=== PATIENT | female | born 1990 | race Caucasian/White ===

== ENCOUNTER 2020-01-07 13:54 | Emergency (ER) | payer SELFPAY ==
--- NOTE | 2020-01-07 14:14 | HMH.EDUTC ---
[facility] [place] Disposition Clinical Impression: Acute bronchitis Qualifiers: Bronchitis organism: unspecified organism Qualified Code(s): J20.9 - Acute bronchitis, unspecified Asthma Qualifiers: Asthma severity: unspecified severity Asthma persistence: unspecified Asthma complication type: unspecified Qualified Code(s): J45.909 - Unspecified asthma, uncomplicated Disposition: Home, Self-Care Condition on Discharge: Good Instructions: Asthma -- Adult, DI for Asthma -- Adult Additional Instructions: Drink plenty of fluids. Take tylenol or ibuprofen for pain or fever. Take the medications as directed. Follow up with your regular doctor. GO TO THE ER FOR ANY WORSENING SYMPTOMS Prescriptions: Albuterol Sulfate [Albuterol Sulfate Hfa] 2 puffs IH Q6HP PRN 30 Days #1 hfa.aer.ad PRN Reason: Shortness Of Breath Transmission Status: Received by [facility] predniSONE [Prednisone 20mg Tab] 20 mg PO BID 4 Days #8 tab Transmission Status: Received by [facility] Azithromycin [Z-Ronn 250mg Tab*] 250 mg PO UD DOSE PK #6 tab Transmission Status: Received by [facility] Referrals: Anuj Ennis MD [Primary Care Provider] - Forms: Work/School Release Time of Disposition: 14:34 Medical Decision Making - Medical Records Medical records reviewed: No: I reviewed the patient's medical records. - Ben Inquiry Pt receiving controlled substance: No Vital Signs: 01/07/20 14:15 01/07/20 14:30 Temperature 98.3 F 98.3 F Temperature Source Oral Pulse Rate 88 Pulse Rate [Right Brachial] 88 Respiratory Rate 20 20 Blood Pressure 128/72 Blood Pressure [Right Arm] 128/72 Blood Pressure Mean [Right Arm] 90 Blood Pressure Source [Right Arm] Automatic Cuff Blood Pressure Position [Right Arm] Sitting 02 Sat by Pulse Oximetry 100 Oxygen Delivery Method Room Air [facility] [place] HPI - General Stated complaint: Allergies Time Seen by Provider: 01/07/20 14:14 - History of Present Illness Provider Complaint: She c/o cough and chest congestion. She has asthma. She states that every year at this time she usually gets an episode of bronchitis. She denies any fever or chills. She denies any known exposure to COVID-19. She does not think that she has COVID-19, because her symptoms are exactly like she has every year at this time. - Related Data Home Medications Medication Instructions Recorded Confirmed Buprenorphine HCl/Naloxone HCl 1 tab SL DAILY 04/01/19 04/01/19 [Buprenorphin-Naloxon 8-2 mg Sl] Previous Rx's Medication Instructions Recorded Acyclovir [Acyclovir 800mg tab] 800 mg PO 5XDAY 7 Days #35 tab 04/01/19 Albuterol Sulfate [Albuterol 2 puffs IH Q6HP PRN 30 Days #1 01/07/20 Sulfate Hfa] hfa.aer.ad Azithromycin [Z-Ronn 250mg Tab*] 250 mg PO UD DOSE PK #6 tab 01/07/20 predniSONE [Prednisone 20mg 20 mg PO BID 4 Days #8 tab 01/07/20 Tab] Allergies Allergy/AdvReac Type Severity Reaction Status Date / Time amoxicillin [AMOXICILLIN] Allergy Unknown Verified 12/08/17 15:58 morphine [MORPHINE] Allergy Unknown Verified 12/08/17 15:58 Penicillins [PENICILLINS] Allergy Unknown Verified 12/08/17 15:58 [facility] History - Hepatitis A Screen Attestation statement:: This patient has been screened for Hepatitis A risk factors. I have reviewed the patient's past medical history: Yes Laterality Cases: Bilateral: Tonsillectomy - Social History Smoking Status: Current every day smoker Tobacco Type: cigarettes # Packs/Day (cigarettes): 1 Alcohol Intake: never Occupational Status: employed ROS Obtained: Yes All systems reviewed & no additional complaints - Constitutional Constitutional: Denies chills, Denies fever(s), Denies poor appetite, Denies malaise - Eyes Eyes: Denies eye discharge - ENT Ears, Nose, Mouth, and Throat: Denies dizziness, Denies otalgia, Denies sore throat - Cardiovascular Cardiovascular: Denies chest pain - Respiratory Respiratory: No c
[2020-01-07 14:15] VITALS: BP 128/72; PULSE 88; RESP 20; TEMP 36.8; O2SAT 100; BMI 25.7
[2020-01-07 14:30] VITALS: BP 128/72; PULSE 88; RESP 20; TEMP 36.8; O2SAT 100
== END 2020-01-07 14:32 | disposition home or self-care (01) ==
PROVIDERS: Emergency Provider Nurse Practitioner Family; PCP Internal Medicine
DX: J20.9 Acute bronchitis, unspecified (principal); J45.909 Unspecified asthma, uncomplicated; Z88.0 Allergy status to penicillin; Z88.5 Allergy status to narcotic agent; F17.210 Nicotine dependence, cigarettes, uncomplicated
CPT/HCPCS: 99201

== ENCOUNTER 2020-06-28 15:51 | Emergency (ER) | payer OTHER, SELFPAY ==
[2020-06-28 15:52] VITALS: BP 131/93; PULSE 93; RESP 16; TEMP 36.6; O2SAT 99; BMI 25.7
--- NOTE | 2020-06-28 16:41 | HMH.EDUTC ---
[facility] [place] Disposition Clinical Impression: Exposure to COVID-19 virus Disposition: Home, Self-Care Condition on Discharge: Good Instructions: Preventing the Spread of Coronavirus Discharge Instructions Additional Instructions: Drink plenty of fluids. Take tylenol or ibuprofen for pain or fever. Take the medications as directed. Follow up with your regular doctor. GO TO THE ER FOR ANY WORSENING SYMPTOMS Don't waste picker the prescriptions unless you start to have symptoms. Make sure you f/u or go to the er if you have shortness of breath. Prescriptions: Albuterol Sulfate [Albuterol Sulfate Hfa] 2 puffs IH Q6HP PRN 30 Days #1 hfa.aer.ad PRN Reason: Shortness Of Breath Transmission Status: Received by [facility] # Ondansetron [Zofran 4mg ODT] 4 mg PO Q8HP PRN #12 tab.rapdis PRN Reason: Nausea Transmission Status: Received by [facility] # Azithromycin [Z-Ronn 250mg Tab*] 250 mg PO UD DOSE PK #6 tab Transmission Status: Received by [facility] # Referrals: Viktor Hobson [Primary Care Provider] - Forms: Work/School Release Time of Disposition: 16:48 Medical Decision Making - Medical Records Medical records reviewed: No: I reviewed the patient's medical records. - Ben Inquiry Pt receiving controlled substance: No Vital Signs: 06/28/20 15:52 06/28/20 16:54 Temperature 97.9 F 97.9 F Temperature Source Oral Oral Pulse Rate 93 H Pulse Rate [Right] 93 H Respiratory Rate 16 16 Blood Pressure 131/93 H Blood Pressure [Right Arm] 131/93 H Blood Pressure Mean [Right Arm] 105 02 Sat by Pulse Oximetry 99 [facility] [place] HPI - General Stated complaint: COVID TEST No Symptoms Time Seen by Provider: 06/28/20 16:41 Mode of Arrival: Ambulatory Source of Information: Patient Limitations: No Limitations Description of Symptoms (Recalled from Triage Doc. by RN): pt requesting COVID test pt has no symptoms HEENT Symptoms (Recalled from RN notes): No Resp Symptoms (Recalled from RN notes): No Skin Symptoms (Recalled from RN notes): No MS Symptoms (Recalled from RN notes): No Functional Status (Recalled from RN notes): wnl - History of Present Illness Provider Complaint: She state that her brother has covid. She denies any symptoms. She does have a significant history of asthma. She is worried that she will develope covid and get very sick because of her asthma. - Related Data Home Medications Medication Instructions Recorded Confirmed Buprenorphine HCl/Naloxone HCl 1 tab SL DAILY 04/01/19 04/01/19 [Buprenorphin-Naloxon 8-2 mg Sl] Previous Rx's Medication Instructions Recorded Acyclovir [Acyclovir 800mg tab] 800 mg PO 5XDAY 7 Days #35 tab 04/01/19 Albuterol Sulfate [Albuterol 2 puffs IH Q6HP PRN 30 Days #1 01/07/20 Sulfate Hfa] hfa.aer.ad Azithromycin [Z-Ronn 250mg Tab*] 250 mg PO UD DOSE PK #6 tab 01/07/20 predniSONE [Prednisone 20mg 20 mg PO BID 4 Days #8 tab 01/07/20 Tab] Albuterol Sulfate [Albuterol 2 puffs IH Q6HP PRN 30 Days #1 06/28/20 Sulfate Hfa] hfa.aer.ad Azithromycin [Z-Ronn 250mg Tab*] 250 mg PO UD DOSE PK #6 tab 06/28/20 Ondansetron [Zofran 4mg ODT] 4 mg PO Q8HP PRN #12 tab.rapdis 06/28/20 Allergies Allergy/AdvReac Type Severity Reaction Status Date / Time amoxicillin [AMOXICILLIN] Allergy Unknown Verified 12/08/17 15:58 morphine [MORPHINE] Allergy Unknown Verified 12/08/17 15:58 Penicillins [PENICILLINS] Allergy Unknown Verified 12/08/17 15:58 - Worker's Comp Is this a Worker's Comp case?: No Is this an [place] Worker's Comp?: No Is this a [place] Worker's Comp?: No [facility] History - Hepatitis A Screen Drug use history?: No High risk sexual behaviors?: No History of sexually transmitted infection?: No Currently employed?: No Childcare worker?: No Do you have indoor plumbing?: Yes Do you have electricity?: Yes Attestation statement:: This patient has been screened for Hepatitis A risk factors.
[2020-06-28 16:54] VITALS: BP 131/93; PULSE 93; RESP 16; TEMP 36.6; O2SAT 99
== END 2020-06-28 16:54 | disposition home or self-care (01) ==
PROVIDERS: Emergency Provider Nurse Practitioner Family; PCP Internal Medicine
DX: Z20.822 Contact with and (suspected) exposure to COVID-19 (principal); J45.909 Unspecified asthma, uncomplicated; F17.210 Nicotine dependence, cigarettes, uncomplicated; Z79.899 Other long term (current) drug therapy; Z88.0 Allergy status to penicillin; Z88.5 Allergy status to narcotic agent
CPT/HCPCS: 99202; G0463; U0003

== ENCOUNTER 2021-02-27 11:03 | Emergency (ER) | payer OTHER, SELFPAY ==
[2021-02-27 12:06] VITALS: BP 133/82; PULSE 74; RESP 21; TEMP 37; O2SAT 100; BMI 25.7
[2021-02-27 12:10] VITALS: BP 133/82; PULSE 74; RESP 21; TEMP 37
--- NOTE | 2021-02-27 12:30 | HMH.EDUTC ---
[facility] [place] Disposition Clinical Impression: Viral syndrome, Strep throat exposure Disposition: Home, Self-Care Condition on Discharge: Good Instructions: Strep Throat, DI for Strep Throat, DI for COVID-19 (Suspected or Confirmed ), Preventing the Spread of Coronavirus Discharge Instructions Additional Instructions: Drink plenty of fluids. Take tylenol for pain or fever. Return if you begin to have difficulty breathing. Follow up with your regular doctor. GO TO THE ER FOR ANY WORSENING SYMPTOMS Quarantine until you know the results of your covid-19 test. If it is positive, the health department should call you and give you further instructions about your length of Quarantine and other things. Notify your school or workplace of your results and follow their instructions regarding return to work/school. Prescriptions: Brompheniramine/Pseudoephed/Dm [Bromfed Dm Cough Syrup] 5 ml PO Q6HP PRN #240 ml PRN Reason: Cough Transmission Status: Received by [facility] #[id number] Azithromycin [Z-Ronn 250mg Tab*] 250 mg PO UD DOSE PK #6 tab Transmission Status: Received by [facility] #[id number] Referrals: Provider,Referral, [Primary Care Provider] - Forms: Work/School Release Time of Disposition: 12:55 Medical Decision Making - Medical Records Medical records reviewed: No: I reviewed the patient's medical records. - Ben Inquiry Pt receiving controlled substance: No Vital Signs: 02/27/21 12:06 02/27/21 12:10 Temperature 98.6 F 98.6 F Temperature Source Oral Pulse Rate 74 Pulse Rate [Left] 74 Respiratory Rate 21 21 Blood Pressure 133/82 Blood Pressure [Right Arm] 133/82 Blood Pressure Mean [Right Arm] 99 02 Sat by Pulse Oximetry 100 - Lab Data Lab results reviewed: Yes: I reviewed the patient's lab results. [facility] [place] HPI - General Stated complaint: covid tested Time Seen by Provider: 02/27/21 12:30 Mode of Arrival: Ambulatory Source of Information: Patient Limitations: No Limitations Description of Symptoms (Recalled from Triage Doc. by RN): pt c/o cough and congestion. HEENT Symptoms (Recalled from RN notes): Yes (congestion) Resp Symptoms (Recalled from RN notes): Yes (cough) Skin Symptoms (Recalled from RN notes): No MS Symptoms (Recalled from RN notes): No Functional Status (Recalled from RN notes): na - History of Present Illness Provider Complaint: She states that for the past 2 days she has had fatigue, a dry cough, and she has felt bad. She has been exposed to covid-19 in her office. She denies fever/chills/body aches. She has not been vaccinated against covid-19. - Related Data Home Medications Medication Instructions Recorded Confirmed Buprenorphine HCl/Naloxone HCl 1 tab SL DAILY 04/01/19 04/01/19 [Buprenorphin-Naloxon 8-2 mg Sl] Previous Rx's Medication Instructions Recorded Acyclovir [Acyclovir 800mg tab] 800 mg PO 5XDAY 7 Days #35 tab 04/01/19 Albuterol Sulfate [Albuterol 2 puffs IH Q6HP PRN 30 Days #1 01/07/20 Sulfate Hfa] hfa.aer.ad Azithromycin [Z-Ronn 250mg Tab*] 250 mg PO UD DOSE PK #6 tab 01/07/20 predniSONE [Prednisone 20mg 20 mg PO BID 4 Days #8 tab 01/07/20 Tab] Albuterol Sulfate [Albuterol 2 puffs IH Q6HP PRN 30 Days #1 06/28/20 Sulfate Hfa] hfa.aer.ad Azithromycin [Z-Ronn 250mg Tab*] 250 mg PO UD DOSE PK #6 tab 06/28/20 Ondansetron [Zofran 4mg ODT] 4 mg PO Q8HP PRN #12 tab.rapdis 06/28/20 Azithromycin [Z-Ronn 250mg Tab*] 250 mg PO UD DOSE PK #6 tab 02/27/21 Brompheniramine/Pseudoephed/Dm 5 ml PO Q6HP PRN #240 ml 02/27/21 [Bromfed Dm Cough Syrup] Allergies Allergy/AdvReac Type Severity Reaction Status Date / Time amoxicillin [AMOXICILLIN] Allergy Unknown Verified 12/08/17 15:58 morphine [MORPHINE] Allergy Unknown Verified 12/08/17 15:58 Penicillins [PENICILLINS] Allergy Unknown Verified 12/08/17 15:58 - Worker's Comp Is this a Worker's Comp case?: No H History - Hepatitis A Screen Drug use hist
== END 2021-02-27 13:09 | disposition home or self-care (01) ==
PROVIDERS: Emergency Provider Nurse Practitioner Family
DX: Z20.822 Contact with and (suspected) exposure to COVID-19 (principal)
CPT/HCPCS: 99202; G0463; U0003

== ENCOUNTER → 2021-07-18 11:29 | Outpatient (CLI) | payer OTHER, SELFPAY | PROVIDERS: PCP Internal Medicine; Visit Provider Nurse Practitioner | DX: Z20.822 Contact with and (suspected) exposure to COVID-19 (principal) | CPT/HCPCS: C9803; U0003; U0005 ==

== ENCOUNTER → 2021-07-19 15:29 | Outpatient (CLI) | payer OTHER, SELFPAY | PROVIDERS: Visit Provider Nurse Practitioner | DX: Z20.822 Contact with and (suspected) exposure to COVID-19 (principal) | CPT/HCPCS: C9803; U0003; U0005 ==

== ENCOUNTER 2022-03-18 11:01 | Emergency (ER) | payer OTHER, SELFPAY ==
[2022-03-18 12:15] VITALS: BP 130/80; PULSE 73; RESP 18; TEMP 36.9; O2SAT 100; BMI 23.3
[2022-03-18 12:39] LABS: Apearance,Urine Clear (Clear); Bilirubin,Urine Negative (Negative); Blood, Urine Trace (Negative); Color,Urine Yellow (Yellow); Glucose,Urine (UA) Negative (Negative); Ketones,Urine Negative (Negative); PH,Urine 7.5 (5.0-8.5); Protein,Urine Negative (Negative); Specific Gravity, Urine 1.015 (1.005-1.030); UTC Leukocyte Esterase,Urine Negative (Negative); UTC Nitrate,Urine Negative (Negative); Urobilinogen,Urine 1 EU/dl (0.2)
--- NOTE | 2022-03-18 12:41 | EXP.UTC ---
Discharge Plan Disposition Patient Disposition: Home, Self-Care Condition: Good Referrals Follow up/Referrals: Provider,Referral, MD [Primary Care Provider] - See instructions Activity Restrictions/Add. Instructions Additional Instructions/Restrictions: Make sure that you are drinking plenty of fluids Follow up with OBGYN for further evaluation and testing for Ovarian cyst Return if needed Straight to ER if any life threatening symptoms Clinical Impressions Clinical Impression: Other urinary problems Discharge ED Provider: Marylu Kuo [facility] [place] General Stated complaint: pain when urinating Mode of Arrival: Ambulatory Source of Information: Patient Limitations: No Limitations Time Seen by Provider: 03/18/22 12:41 Description of Symptoms (Recalled from Triage Doc. by RN): PATIENT C/O BLADDER SPASMS THAT STARTED THIS MORNING HEENT Symptoms (Recalled from RN notes): No Resp Symptoms (Recalled from RN notes): No Skin Symptoms (Recalled from RN notes): No MS Symptoms (Recalled from RN notes): No Functional Status (Recalled from RN notes): WNL History of Present Illness Provider Complaint: Patient states that she felt like she was having bladder spasms earlier and pressure in her right lower pelvic area when she urinates that comes and goes like she has at times when she gets a UTI States that she also has history of ovarian cysts that sometimes feels like this Related Data Allergies Allergy/AdvReac Type Severity Reaction Status Date / Time amoxicillin [AMOXICILLIN] Allergy Unknown Verified 12/08/17 15:58 morphine [MORPHINE] Allergy Unknown Verified 12/08/17 15:58 Penicillins [PENICILLINS] Allergy Unknown Verified 12/08/17 15:58 Worker's Comp Is this a Worker's Comp case?: No [facility] 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 (Updated 03/18/22 @ 12:53 by Marylu Kuo APRN) Anxiety Asthma Kidney stone Kidney stone Seizure disorder Urinary tract infection Surgical History (Updated 03/18/22 @ 12:31 by Rona Terrazas RN) History of appendectomy History of tonsillectomy Social History (Updated 03/18/22 @ 12:31 by Rona Terrazas RN) Smoking Status: Current every day smoker tobacco type: cigarettes packs per day: 1 alcohol intake: never current occupational status: other Travel in the last 8 weeks: None ROS Obtained: Yes All systems reviewed & no additional complaints except as documented and Yes Systems reviewed as appropriate & no additional complaints except as documented Cardiovascular Cardiovascular: Reports system reviewed and no additional complaints, except as documented and Reports as per HPI Respiratory Respiratory: Reports system reviewed and no additional complaints, except as documented and Reports as per HPI Gastrointestinal Gastrointestingal: Reports system reviewed and no additional complaints, except as documented and as per HPI; Denies abdominal pain Genitourinary Female Genitourinary: Reports system reviewed and no additional complaints, except as documented, Reports as per HPI, Reports urinary frequency and Reports other (pressure like feeling on and off right lower pelvic area) Physical Exam General General appearance: alert and in no apparent distress Respiratory Respiratory exam: Present normal lung sounds bilaterally; Absent respiratory distress Cardiovascular Cardiovascular exam: Present regular rate and normal heart sounds; Absent normal rhythm or bradycardia Abdominal Exam Abdominal exam: Present soft and normal bowel sounds; Absent distention or tenderness Neurological Exam Neurological exam: Present alert Medical Decision Making Ben Inquiry Pt receiving controlled substance: No Ben was queried for this patient: No Vital Signs: 03/18/22 12:15 Temperature 98.4 F Temperature Source Oral Pulse Rate [Right Brachial] 73 Respiratory Rate 18 Blood Pressure [Right Arm] 130/80 Blood Pressure Mean [Right Arm] 96 Blood Pressure Source [Right Arm] Automatic Cuff Blood Pr
[2022-03-18 12:42] LABS: UTC Pregnancy Test, Urine Negative (Negative)
[2022-03-18 12:52] VITALS: BP 130/80; PULSE 73; RESP 18; TEMP 36.9; O2SAT 100
== END 2022-03-18 12:55 | disposition home or self-care (01) ==
PROVIDERS: Emergency Provider Nurse Practitioner
DX: N32.89 Other specified disorders of bladder (principal); R30.0 Dysuria; N20.0 Calculus of kidney; G40.909 Epilepsy, unspecified, not intractable, without status epilepticus; J45.909 Unspecified asthma, uncomplicated; F41.9 Anxiety disorder, unspecified; F17.210 Nicotine dependence, cigarettes, uncomplicated; Z88.1 Allergy status to other antibiotic agents; Z88.3 Allergy status to other anti-infective agents; Z88.5 Allergy status to narcotic agent
CPT/HCPCS: 81003; 81025; 99213; G0463

== ENCOUNTER 2022-08-01 13:26 | Emergency (ER) | payer OTHER, SELFPAY ==
[2022-08-01 13:40] VITALS: BP 114/74; PULSE 78; RESP 18; TEMP 36.8; O2SAT 98; BMI 23.3
--- NOTE | 2022-08-01 14:06 | EXP.UTC ---
Discharge Plan Disposition Patient Disposition: Home, Self-Care Condition: Good Prescriptions Prescriptions: New azithromycin [Zithromax Z-Ronn] 250 mg tablet See Rx Instructions .ROUTE .COMPLEX 5 Days Qty: 6 0RF Rx Instructions: For 250 mg dose pack: take 500 mg today (day 1), then 250 mg for 4 days (days 2-5) methylprednisolone [Medrol (Ronn)] 4 mg tablets,dose pack See Rx Instructions .Route .COMPLEX 6 Days Qty: 21 0RF Rx Instructions: taper pack; guaifenesin [Mucinex] 600 mg tablet extended release 12hr 600 mg PO BID PRN (Reason: cough) Qty: 20 0RF Referrals Follow up/Referrals: Tracy Hobson MD [Primary Care Provider] - See instructions Activity Restrictions/Add. Instructions Additional Instructions/Restrictions: Start antibiotic today. Be sure to complete entire prescription even if feeling better Monitor temp. Tylenol every 4 hours as needed and / or ibuprofen every 6 hours as needed ( As long as your primary care physician has told you that it ok to take both. For fever/aches/pains ER if no less than 101 despite Tylenol or Motrin Humidifier/vaporizer or hot steamy shower Mucinex during the day for your cough and cough suppressant only at night. Be sure to drink lots of water. Insurance may not cover a prescriptions for mucinex. Might be cheaper to get 400mg tablets and take 2 tablet in the morning, mid-day and evening with lots of water. *Start steroid today. Helps with inflammation therefore, cough and wheezing. Follow directions on the package. Reviewed side effects. Patient reports taking them before. Follow up IMMEDIATELY for new or worsening of symptoms OR no noticeable improvement over the next 48-72 hours. 911 immediately for any life threatening symptoms such as chest pain or difficulty breathing Clinical Impressions Clinical Impression: Acute bronchitis Stand Alone Forms Stand Alone Forms: Work/School Release Instructions Patient Instructions: Cough, Acute Bronchitis Discharge ED Provider: Marylu Kuo [facility] [place] HPI General Stated complaint: Chest congestion SOA bodyaches fever Time Seen by Provider: 08/01/22 14:06 History of Present Illness Provider Complaint: Patient states that she had flu a couple weeks ago and for the last week she has been having sinus congestion, chest congestion and cough and feeling like it is moving into her chest States feels like it did before when she had bronchitis Related Data Previous Rx's Medication Instructions Recorded azithromycin 250 mg tablet See Rx Instructions PO .COMPLEX 5 08/01/22 (Zithromax Z-Ronn) days #6 tabs guaifenesin 600 mg tablet, 600 mg PO BID PRN cough #20 tabs 08/01/22 extended release 12 hr (Mucinex) methylprednisolone 4 mg tablets in See Rx Instructions .Route 08/01/22 a dose pack (Medrol (Ronn)) .COMPLEX 6 days #21 tabs Allergies Allergy/AdvReac Type Severity Reaction Status Date / Time amoxicillin [AMOXICILLIN] Allergy Unknown Verified 12/08/17 15:58 morphine [MORPHINE] Allergy Unknown Verified 12/08/17 15:58 Penicillins [PENICILLINS] Allergy Unknown Verified 12/08/17 15:58 [facility] Disclaimer: The information contained in this section may have been updated after the patient was seen, as this information can be updated by other users. 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 (Updated 08/01/22 @ 14:12 by Marylu Kuo APRN) Anxiety Asthma Kidney stone Kidney stone Seizure disorder Urinary tract infection Surgical History (Updated 03/18/22 @ 12:31 by Rona Terrazas RN) History of appendectomy History of tonsillectomy Social History (Updated 03/18/22 @ 12:31 by Rona Terrazas RN) Smoking Status: Current every day smoker tobacco type: cigarettes packs per day: 1 alcohol intake: never current occupational status: other Travel in the last 8 weeks: None ROS Obtained: Yes All systems reviewed & no additional
[2022-08-01 14:15] VITALS: BP 114/74; PULSE 78; RESP 18; TEMP 36.8; O2SAT 98
== END 2022-08-01 14:19 | disposition home or self-care (01) ==
PROVIDERS: Emergency Provider Nurse Practitioner; PCP Family Medicine
DX: J20.9 Acute bronchitis, unspecified (principal)
CPT/HCPCS: 99212; 99213; G0463

== ENCOUNTER 2023-11-12 08:18 | Emergency (ER) | payer OTHER, SELFPAY ==
[2023-11-12 08:30] VITALS: BP 116/67; PULSE 102; RESP 19; TEMP 36.6; O2SAT 100; BMI 23.5
[2023-11-12 08:53] LABS: UTC Influenza A Antigen Negative (Negative); UTC Influenza B Antigen Negative (Negative); UTC Strep Screen (Rapid) Negative (Negative)
--- NOTE | 2023-11-12 09:10 | ED_ITS ---
Discharge Plan Disposition Patient Disposition: Home, Self-Care Condition: Good Prescriptions Prescriptions: No Action gabapentin 800 mg tablet 800 mg PO TID furosemide 20 mg tablet See Rx Instructions .ROUTE .COMPLEX Rx Instructions: see rx instructions albuterol sulfate [Ventolin HFA] 90 mcg/actuation HFA aerosol inhaler See Rx Instructions .ROUTE .COMPLEX Patient Comments: INHALE 2 PUFFS BY MOUTH EVERY 4 HOURS Rx Instructions: INHALE 2 PUFFS BY MOUTH EVERY 4 HOURS spironolactone 50 mg tablet See Rx Instructions .ROUTE .COMPLEX Rx Instructions: see rx instructions Referrals Follow up/Referrals: Yonatan Graves [Primary Care Provider] - See instructions Activity Restrictions/Add. Instructions Additional Instructions/Restrictions: Drink plenty of fluids. Follow up with your regular doctor. GO TO THE ER FOR ANY WORSENING SYMPTOMS Clinical Impressions Clinical Impression: Viral syndrome Instructions Patient Instructions: DI for Viral Syndrome Discharge ED Provider: Morgan Valdivia [facility] General Stated complaint: cough, congestion, headache, sore throat Mode of Arrival: Ambulatory Source of Information: Patient Limitations: No Limitations Time Seen by Provider: 11/12/23 09:10 Description of Symptoms (Recalled from Triage Doc. by RN): Pt's symptoms are cough, congestion, SPANN, fatgiue, sore throat, and nausea. She was exposed to flu by family. HEENT Symptoms (Recalled from RN notes): Yes Resp Symptoms (Recalled from RN notes): No Skin Symptoms (Recalled from RN notes): No MS Symptoms (Recalled from RN notes): No Functional Status (Recalled from RN notes): n/a Related Data Home Medications Medication Instructions Recorded Confirmed albuterol sulfate 90 mcg/actuation See Rx Instructions .Route .COMPLEX 11/12/23 11/12/23 aerosol inhaler (Ventolin HFA) furosemide 20 mg tablet See Rx Instructions .Route .COMPLEX 11/12/23 11/12/23 gabapentin 800 mg tablet 800 mg PO TID 11/12/23 11/12/23 spironolactone 50 mg tablet See Rx Instructions .Route .COMPLEX 11/12/23 11/12/23 Allergies Allergy/AdvReac Type Severity Reaction Status Date / Time amoxicillin [AMOXICILLIN] Allergy Unknown Verified 11/12/23 08:38 morphine [MORPHINE] Allergy Unknown Verified 11/12/23 08:38 Penicillins [PENICILLINS] Allergy Unknown Verified 11/12/23 08:38 Worker's Comp Is this a Worker's Comp case?: No [facility] Disclaimer: The information contained in this section may have been updated after the patient was seen, as this information can be updated by other users. 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 (Updated 11/12/23 @ 09:17 by Morgan Valdivia APRN) Kidney stone Anxiety Seizure disorder Urinary tract infection Kidney stone Asthma Surgical History History of tonsillectomy History of appendectomy Social History Smoking Status: Current every day smoker tobacco type: cigarettes packs per day: 1 alcohol intake: never current occupational status: other Travel in the last 8 weeks: None ROS Obtained: Yes All systems reviewed & no additional complaints except as documented Constitutional Constitutional: Reports chills and Reports fever(s) Eyes Eyes: Denies eye discharge ENT Ears, Nose, Mouth, and Throat: Reports as per HPI Cardiovascular Cardiovascular: Denies chest pain Respiratory Respiratory: Denies chest congestion and Reports cough Gastrointestinal Gastrointestingal: Reports nausea; Denies abdominal pain, constipation, cramping, diarrhea or vomiting Musculoskeletal Musculoskeletal: Denies arthralgias Integumentary/Breasts Skin/Breast: Denies rash Neurologic Neurologic: Denies paresthesias Physical Exam General General appearance: alert and in no apparent distress Head Head exam: atraumatic, normocephalic and normal inspection Eye Eye exam: Present normal appearance, PERRL and EOMI ENT ENT exam: Present normal exam, normal oropharynx, mucous membranes moist, TM's normal bilaterally and normal external ear exam Neck Neck exam: Present normal inspection, full ROM and trachea midline; Absent meningismus or lymphadenopathy Chest Chest inspection: Present normal inspection and symmetric chest wall rise; Absent tenderness Respiratory Respiratory exam: Present normal lung sounds bilaterally; Absent respiratory distress Cardiovascular Cardiovascular exam: Present regular rate and normal rhythm; Absent JVD Abdominal Exam Abdominal exam: Present soft and normal bowel sounds; Absent distention, tenderness or guarding Extremities Exam Extremities exam: Present normal inspection, full ROM and normal capillary refill; Absent calf tenderness Back Exam Back exam: Present normal inspection; Absent tenderness Neurological Exam Neurological exam: Present alert and oriented X3 Psychiatric Psychiatric exam: Present normal affect and normal mood Skin Skin exam: Present warm, dry, intact and normal color Lymphatic Lymphatic Findings: no adenopathy Medical Decision Making Medical Records Medical records reviewed: No I reviewed the patient's medical records. Ben Inquiry Pt receiving controlled substance: No Vital Signs: 11/12/23 08:30 Temperature 97.9 F Temperature Source Oral Pulse Rate [Right Radial] 102 H Respiratory Rate 19 Blood Pressure [Right Arm] 116/67 Blood Pressure Mean [Right Arm] 83 Blood Pressure Source [Right Arm] Automatic Cuff Blood Pressure Position [Right Arm] Sitting 02 Sat by Pulse Oximetry 100 Oxygen Delivery Method Room Air Lab Data Lab results reviewed: Yes I reviewed the patient's lab results. Lab Results 11/12/23 08:25: Influenza Type A Ag Negative, Influenza Type B Ag Negative, Strep Scn Rapid Clinic Negative Orders (Tests/Meds): ORDERS Category Date Time Status Strep Screen Confirmation Stat Micro 11/12/23 08:25 Received
--- NOTE | 2023-11-12 09:20 | PC.NURSE ---
Sent full panel up to lab via tube system
[2023-11-12 09:21] VITALS: BP 116/67; PULSE 102; RESP 18; TEMP 36.6; O2SAT 100
[2023-11-12 09:23] LABS: Adenovirus,PCR Not Detected (NotDetected); Bordetella Pertussis Not Detected (NotDetected); Chlamydophila Pneumoniae, PCR Not Detected (NotDetected); Coronavirus 19, PCR Not Detected (NotDetected); Coronavirus 229E Not Detected (NotDetected); Coronavirus NL63 Not Detected (NotDetected); Coronavirus OC43 Not Detected (NotDetected); Coronovirus HKU1,PCR Not Detected (NotDetected); Human Metapneumovirus Not Detected (NotDetected); Influenza A, PCR Not Detected (NotDetected); Influenza AH1, 2009 Not Detected (NotDetected); Influenza AH1, PCR Not Detected (NotDetected); Influenza AH3,PCR Not Detected (NotDetected); Influenza B, PCR Not Detected (NotDetected); Mycoplasma Pneumoniae, PCR Not Detected (NotDetected); Parainfluenza 1, PCR Not Detected (NotDetected); Parainfluenza 2, PCR Not Detected (NotDetected); Parainfluenza 3, PCR Not Detected (NotDetected); Parainfluenza 4, PCR Not Detected (NotDetected); Respiratory Syncytial Virus Not Detected (NotDetected); Rhinovirus/Enterovirus Not Detected (NotDetected)
== END 2023-11-12 09:21 | disposition home or self-care (01) ==
PROVIDERS: Emergency Provider Nurse Practitioner Family; PCP Internal Medicine
DX: R51.9 Headache, unspecified (principal); J02.9 Acute pharyngitis, unspecified; B34.9 Viral infection, unspecified; R09.81 Nasal congestion; R53.83 Other fatigue; R11.0 Nausea; G40.909 Epilepsy, unspecified, not intractable, without status epilepticus; J45.909 Unspecified asthma, uncomplicated; F41.9 Anxiety disorder, unspecified; F17.210 Nicotine dependence, cigarettes, uncomplicated
CPT/HCPCS: 87581; 87632; 87635; 87798; 87804; 87880; 99212; 99213; G0463

== ENCOUNTER 2023-11-20 15:20 | Emergency (ER) | payer OTHER, SELFPAY ==
[2023-11-20 15:20] VITALS: BP 106/62; PULSE 88; RESP 20; TEMP 36.9; O2SAT 100; BMI 23.1
--- NOTE | 2023-11-20 16:00 | EXP.UTC ---
Discharge Plan Disposition Patient Disposition: Home, Self-Care Condition: Good Prescriptions Prescriptions: No Action gabapentin 800 mg tablet 800 mg PO TID furosemide 20 mg tablet See Rx Instructions .ROUTE .COMPLEX Rx Instructions: see rx instructions albuterol sulfate [Ventolin HFA] 90 mcg/actuation HFA aerosol inhaler See Rx Instructions .ROUTE .COMPLEX Patient Comments: INHALE 2 PUFFS BY MOUTH EVERY 4 HOURS Rx Instructions: INHALE 2 PUFFS BY MOUTH EVERY 4 HOURS spironolactone 50 mg tablet See Rx Instructions .ROUTE .COMPLEX Rx Instructions: see rx instructions Referrals Follow up/Referrals: Yonatan Graves [Primary Care Provider] - See instructions Activity Restrictions/Add. Instructions Additional Instructions/Restrictions: Make sure to follow up with your Family Doctor or go straight to [place] if you continue to have pain and discomfort Return if needed Straight to ER if any life threatening symptoms Clinical Impressions Clinical Impression: Low back pain Qualifiers: Chronicity: unspecified Back pain laterality: right Sciatica presence: unspecified whether sciatica present Qualified Code(s): M54.50 - Low back pain, unspecified Instructions Patient Instructions: Low Back Pain, DI for Low Back Pain Discharge ED Provider: Marylu Kuo [facility] General Stated complaint: Poss UTI Time Seen by Provider: 11/20/23 16:00 History of Present Illness Provider Complaint: Patient states that she has hx of liver failure in which she sees a specialist in [place] States that she has been having achy like pain in her right side/back area and she was worried that she may have a kidney infection and due to her liver issues she tries to stay on top of possible infection so she came in to get checked to make sure she didnt have a UTI Related Data Home Medications Medication Instructions Recorded Confirmed albuterol sulfate 90 mcg/actuation See Rx Instructions .Route .COMPLEX 11/12/23 11/12/23 aerosol inhaler (Ventolin HFA) furosemide 20 mg tablet See Rx Instructions .Route .COMPLEX 11/12/23 11/12/23 gabapentin 800 mg tablet 800 mg PO TID 11/12/23 11/12/23 spironolactone 50 mg tablet See Rx Instructions .Route .COMPLEX 11/12/23 11/12/23 Allergies Allergy/AdvReac Type Severity Reaction Status Date / Time amoxicillin [AMOXICILLIN] Allergy Unknown Verified 11/12/23 08:38 morphine [MORPHINE] Allergy Unknown Verified 11/12/23 08:38 Penicillins [PENICILLINS] Allergy Unknown Verified 11/12/23 08:38 [facility] Disclaimer: The information contained in this section may have been updated after the patient was seen, as this information can be updated by other users. 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 (Updated 11/20/23 @ 16:09 by Marylu Kuo APRN) Kidney stone Anxiety Seizure disorder Urinary tract infection Kidney stone Asthma Surgical History History of tonsillectomy History of appendectomy Social History Smoking Status: Current every day smoker tobacco type: cigarettes packs per day: 1 alcohol intake: never current occupational status: other Travel in the last 8 weeks: None ROS Obtained: Yes All systems reviewed & no additional complaints except as documented and Yes Systems reviewed as appropriate & no additional complaints except as documented Constitutional Constitutional: Reports system reviewed and no additional complaints, except as documented, Reports as per HPI, Denies body ache, Denies chills and Denies fever(s) Cardiovascular Cardiovascular: Reports system reviewed and no additional complaints, except as documented and Reports as per HPI Respiratory Respiratory: Reports system reviewed and no additional complaints, except as documented and Reports as per HPI Gastrointestinal Gastrointestingal: Reports system reviewed and no additional complaints, except as documented and as per HPI Genitourinary Female Genitourinary: Reports system reviewed and no additional complaints, except as documented, Reports as per HPI, Denies dysuria, Reports flank pain (right), Denies genital pruritis, Denies pelvic pain, Denies urinary frequency, Denies urinary hesitancy, Denies urinary urgency, Denies vaginal odor and Denies vaginal pruritus Musculoskeletal Musculoskeletal: Reports system reviewed and no additional complaints, except as documented, Reports as per HPI and Reports back pain (right low back aches) Physical Exam General General appearance: alert and in no apparent distress ENT ENT exam: Present mucous membranes moist Respiratory Respiratory exam: Present normal lung sounds bilaterally; Absent respiratory distress or wheezes Cardiovascular Cardiovascular exam: Present regular rate, normal rhythm and normal heart sounds Back Exam Back exam: Present tenderness; Absent CVA tenderness (R) or CVA tenderness (L) Back 1 view image: 1. reports achy like feeling denies radiation Neurological Exam Neurological exam: Present alert, oriented X3 and normal gait Medical Decision Making Ben Inquiry Pt receiving controlled substance: No Ben was queried for this patient: No Lab Data Lab results reviewed: Yes I reviewed the patient's lab results. Medical Decision Narrative: Discussed with patient about transfer to the ED for further work up and evalution and she declined Discussed with patient about going to the ED in [place] where her [place] physician is and where she was informed to go if she has any pain/issues and she declined at this time states if pain gets worse she will go to [place] patient aware of risks even and still declined
[2023-11-20 16:03] LABS: Apearance,Urine Clear (Clear); Bilirubin,Urine Negative (Negative); Blood, Urine Trace (Negative); Color,Urine Yellow (Yellow); Glucose,Urine (UA) Negative (Negative); Ketones,Urine Negative (Negative); Protein,Urine Negative (Negative); UTC Leukocyte Esterase,Urine Negative (Negative); UTC Nitrate,Urine Negative (Negative); Urobilinogen,Urine 2 EU/dl (0.2)
[2023-11-20 16:10] VITALS: BP 106/62; PULSE 88; RESP 20; TEMP 36.9; O2SAT 100
== END 2023-11-20 16:13 | disposition home or self-care (01) ==
PROVIDERS: Emergency Provider Nurse Practitioner; PCP Internal Medicine
DX: M54.50 Low back pain, unspecified (principal)
CPT/HCPCS: 81003; 87086; 99212; 99213; G0463

== ENCOUNTER 2024-01-31 13:56 | Emergency (ER) | payer OTHER, SELFPAY ==
[2024-01-31] VITALS (8 sets, daily range): BP systolic 99–116; BP diastolic 55–75; PULSE 84–93; RESP 20; TEMP 36.8–37; O2SAT 99–100; BMI 22.6; BMI 22.4
--- NOTE | 2024-01-31 14:38 | ED_ITS ---
Discharge Plan Disposition Patient Disposition: Still a Patient Condition: Good Prescriptions Prescriptions: No Action gabapentin 800 mg tablet 800 mg PO TID furosemide 20 mg tablet See Rx Instructions .ROUTE .COMPLEX Rx Instructions: see rx instructions albuterol sulfate [Ventolin HFA] 90 mcg/actuation HFA aerosol inhaler See Rx Instructions .ROUTE .COMPLEX Patient Comments: INHALE 2 PUFFS BY MOUTH EVERY 4 HOURS Rx Instructions: INHALE 2 PUFFS BY MOUTH EVERY 4 HOURS spironolactone 50 mg tablet See Rx Instructions .ROUTE .COMPLEX Rx Instructions: see rx instructions Referrals Follow up/Referrals: Yonatan Graves [Primary Care Provider] - See instructions Print Language Print Language: German Discharge ED Provider: Deann ([facility])Kandis [facility] [place] HPI General Stated complaint: shaky, weak, diff urinating Mode of Arrival: Ambulatory Source of Information: Patient Limitations: No Limitations Time Seen by Provider: 01/31/24 14:38 Description of Symptoms (Recalled from Triage Doc. by RN): PATIENT C/O WEAKNESS, FEELING SHAKY, NAUSEA, AND DECREASED URINE OUTPUT X 2 DAYS HEENT Symptoms (Recalled from RN notes): No Resp Symptoms (Recalled from RN notes): No Skin Symptoms (Recalled from RN notes): No MS Symptoms (Recalled from RN notes): No Functional Status (Recalled from RN notes): WNL History of Present Illness Provider Complaint: 34 yr old female presnets for c/o shaky, weak, nausea, diff urinating- r/t decrease outpt Related Data Home Medications ?Medication ?Instructions ?Recorded ?Confirmed albuterol sulfate 90 mcg/actuation See Rx Instructions .Route .COMPLEX 11/12/23 01/31/24 aerosol inhaler (Ventolin HFA) furosemide 20 mg tablet See Rx Instructions .Route .COMPLEX 11/12/23 01/31/24 gabapentin 800 mg tablet 800 mg PO TID 11/12/23 01/31/24 spironolactone 50 mg tablet See Rx Instructions .Route .COMPLEX 11/12/23 01/31/24 Allergies Allergy/AdvReac Type Severity Reaction Status Date / Time amoxicillin [AMOXICILLIN] Allergy Unknown Verified 11/12/23 08:38 morphine [MORPHINE] Allergy Unknown Verified 11/12/23 08:38 Penicillins [PENICILLINS] Allergy Unknown Verified 11/12/23 08:38 Worker's Comp Is this a Worker's Comp case?: No [facility] Disclaimer: The information contained in this section may have been updated after the patient was seen, as this information can be updated by other users. 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) Smoking Status: Current every day smoker tobacco type: cigarettes packs per day: 1 alcohol intake: never current occupational status: other Travel in the last 8 weeks: None ROS Obtained: Yes All systems reviewed & no additional complaints except as documented Constitutional Constitutional: Reports system reviewed and no additional complaints, except as documented Eyes Eyes: Reports system reviewed and no additional complaints, except as documented, Reports as per HPI and Reports other (jaundice) ENT Ears, Nose, Mouth, and Throat: Reports system reviewed and no additional complaints, except as documented Cardiovascular Cardiovascular: Reports system reviewed and no additional complaints, except as documented Respiratory Respiratory: Reports system reviewed and no additional complaints, except as documented Gastrointestinal Gastrointestingal: Reports system reviewed and no additional complaints, except as documented and nausea Musculoskeletal Musculoskeletal: Reports system reviewed and no additional complaints, except as documented Integumentary/Breasts Skin/Breast: Reports system reviewed and no additional complaints, except as documented and Reports as per HPI Neurologic Neurologic: Reports system reviewed and no additional complaints, except as documented Endocrine Endocrine: Reports system reviewed and no additional complaints, except as documented Hematologic/Lymphatic Henatologic/Lymphatic: Reports system reviewed and no additional complaints, except as documented Allergic/Immunologic Allergic/Immunologic: Reports system reviewed and no additional complaints, except as documented Physical Exam General General appearance: alert and in no apparent distress Head Head exam: atraumatic Eye Eye exam: Present normal appearance, PERRL and jaundice ENT ENT exam: Present normal exam Respiratory Respiratory exam: Present normal lung sounds bilaterally Cardiovascular Cardiovascular exam: Present regular rate and normal rhythm Abdominal Exam Abdominal exam: Present soft and normal bowel sounds Neurological Exam Neurological exam: Present alert and oriented X3 Psychiatric Psychiatric exam: Present normal affect Skin Skin exam: Present warm and intact Medical Decision Making Medical Records Medical records reviewed: Yes I reviewed the patient's medical records. Ben Inquiry Pt receiving controlled substance: No Ben was queried for this patient: No Vital Signs: 01/31/24 14:15 Temperature 98.6 F Temperature Source Oral Pulse Rate [Left Brachial] 90 Respiratory Rate 20 Blood Pressure [Left Arm] 104/56 L Blood Pressure Mean [Left Arm] 72 Blood Pressure Source [Left Arm] Automatic Cuff Blood Pressure Position [Left Arm] Sitting 02 Sat by Pulse Oximetry 100 Oxygen Delivery Method Room Air Lab Data Lab results reviewed: Yes I reviewed the patient's lab results. Physician Consults Physician Consulted: report to dr sweet. sent to ed for eval
[2024-01-31 14:44] LABS: Apearance,Urine Clear (Clear); Bilirubin,Urine 1+ (Negative); Blood, Urine 1+ (Negative); Color,Urine Amber (Yellow); Glucose,Urine (UA) Negative (Negative); Ketones,Urine Negative (Negative); Protein,Urine Negative (Negative); Specific Gravity, Urine 1.025 (1.005-1.030); UTC Leukocyte Esterase,Urine Negative (Negative); UTC Nitrate,Urine Negative (Negative); UTC Pregnancy Test, Urine Negative (Negative); Urobilinogen,Urine 1 EU/dl (0.2)
--- NOTE | 2024-01-31 15:31 | ECG_ITS ---
APPROVED REPORT Exam: Resting ECG HR:82 bpm ECG Measurements Heart Rate 82 AXES WV 118 P 56 QRSd 86 QRS 72 QT 405 T 77 QTc 443 Conclusion SINUS RHYTHM WITH SHORT WV INTERVAL BORDERLINE ECG Electronically signed by : SCOTT SMART, 01/31/2024 23:31:19
--- NOTE | 2024-01-31 15:34 | ED_ITS ---
Discharge Plan Disposition Patient Disposition: Home, Self-Care Condition: Good Prescriptions Prescriptions: No Action gabapentin 800 mg tablet 800 mg PO TID furosemide 20 mg tablet See Rx Instructions .ROUTE .COMPLEX Rx Instructions: see rx instructions albuterol sulfate [Ventolin HFA] 90 mcg/actuation HFA aerosol inhaler See Rx Instructions .ROUTE .COMPLEX Patient Comments: INHALE 2 PUFFS BY MOUTH EVERY 4 HOURS Rx Instructions: INHALE 2 PUFFS BY MOUTH EVERY 4 HOURS spironolactone 50 mg tablet See Rx Instructions .ROUTE .COMPLEX Rx Instructions: see rx instructions Referrals Follow up/Referrals: Yonatan Graves [Primary Care Provider] - See instructions Activity Restrictions/Add. Instructions Additional Instructions/Restrictions: You were evaluated in the emergency department today. At this time, your labs show some worsening from prior labs. Your bilirubin has gone from 3.2-6.6. Your INR has gone from 1.2-1.36. Your sodium has gone from 131-126. Your MELD score has gone from 18-25. I spoke with Dr. Mendoza at , who advised this is likely due to dehydration secondary to your diuretics. Please make sure that you stay hydrated. Please call them on Friday to let them know that you were evaluated here and notify them of your lab changes. Please also keep your follow-up next week for lab reassessment and MRI. Please note that we did send blood cultures and urine culture today to further evaluate for any sort of infection, however your labs are not indicative of infection at this time. Return to the emergency department for any new or worsening symptoms. Clinical Impressions Clinical Impression: Cirrhosis of liver, Elevated bilirubin, Hyponatremia Stand Alone Forms Stand Alone Forms: Work/School Release Instructions Patient Instructions: DI for Cirrhosis Print Language Print Language: Estonian Discharge ED Provider: Shannon Roberts General Adult HPI General Chief complaint: Abdominal Pain Stated complaint: shaky, weak, diff urinating Time Seen by Provider: 01/31/24 14:38 Mode of Arrival: Ambulatory Source of Information: Patient Limitations: No Limitations Description of Symptoms (Recalled from ER Triage Doc. by RN): pt came in today for just some basic labs because she has felt weak and shaky over the last 3-4 days, pt has hx of cirrhosis and liver disease which she sees for and has an appt with them on Friday. pt has noted discolored urine, low output and right flank pain. pt has hx of kidney stones but takes several diruretics for liver disease and just wants everything checked History of Present Illness HPI narrative: This patient is a 34-year-old female with a history of autoimmune hepatitis causing cirrhosis presenting to the emergency department for evaluation with concern for feeling unwell, feeling cold all the time, and decrease in urine output. She also notes that her urine has a darker color. She states that she went to urgent treatment center initially because she just wanted some labs done to make sure that nothing was significantly out of whack, as she takes diuretics and is does not drink as much as she supposed to. She states she already has follow-up arranged this week including an outpatient MRI at , which is where she follows for her liver disease. She does note that she is also had some right flank pain. No fevers, chest pain, shortness of breath, or other concerns. Patient was sent over for [facility] for evaluation because she appeared jaundiced, which she states is chronic for her. She has no history of requiring paracentesis in the past, stating they tried to do that once into did not get any fluid off. Related Data Home Medications ?Medication ?Instructions ?Recorded ?Confirmed albuterol sulfate 90 mcg/actuation See Rx Instructions .Route .COMPLEX 11/12/23 01/31/24 aerosol inhaler (Ventolin HFA) furosemide 20 mg tablet See Rx Instructions .Route .COMPLEX 11/12/23 01/31/24 gabapentin 800 mg tablet 800 mg PO TID 11/12/23 01/31/24 spironolactone 50 mg tablet See Rx Instructions .Route .COMPLEX 11/12/23 01/31/24 Allergies Allergy/AdvReac Type Severity Reaction Status Date / Time amoxicillin [AMOXICILLIN] Allergy Unknown Verified 11/12/23 08:38 morphine [MORPHINE] Allergy Unknown Verified 11/12/23 08:38 Penicillins [PENICILLINS] Allergy Unknown Verified 11/12/23 08:38 [facility] Disclaimer: The information contained in this section may have been updated after the patient was seen, as this information can be updated by other users. 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 Kidney stone Anxiety Seizure disorder Urinary tract infection Kidney stone Asthma Surgical History History of tonsillectomy History of appendectomy Social History Smoking Status: Never smoker alcohol intake: never current occupational status: other Travel in the last 8 weeks: None ROS Obtained: Yes All systems reviewed & no additional complaints except as documented Physical Exam General General appearance: alert and in no apparent distress Comment: Chronically ill-appearing Head Head exam: atraumatic and normocephalic Eye Eye exam: Present PERRL, EOMI and jaundice ENT ENT exam: Present normal exam, normal oropharynx, mucous membranes moist and normal external ear exam Neck Neck exam: Present normal inspection, full ROM and trachea midline; Absent tenderness Chest Chest inspection: Present normal inspection and symmetric chest wall rise; Absent tenderness Respiratory Respiratory exam: Present normal lung sounds bilaterally; Absent respiratory distress, wheezes, stridor or accessory muscle use Cardiovascular Cardiovascular exam: Present regular rate and normal rhythm Abdominal Exam Abdominal exam: Present soft and distention; Absent tenderness, guarding, rebound or rigidity Extremities Exam Extremities exam: Present normal inspection, full ROM and normal capillary refill; Absent tenderness or edema Back Exam Back exam: Present normal inspection and full ROM; Absent tenderness Neurological Exam Neurological exam: Present alert, oriented X3, CN II-XII intact and normal gait; Absent motor sensory deficit Psychiatric Psychiatric exam: Present normal affect and normal mood Skin Skin exam: Present warm, dry and other (Jaundiced) Medical Decision Making Medical Records Medical records reviewed: Yes I reviewed the patient's medical records. Ben Inquiry Pt receiving controlled substance: No Vital Signs: 01/31/24 14:15 01/31/24 15:01 01/31/24 16:30 Temperature 98.6 F 98.3 F Temperature Source Oral Oral Pulse Rate 84 Pulse Rate [Left Brachial] 90 86 Respiratory Rate 20 20 Blood Pressure 113/59 L Blood Pressure [Left Arm] 104/56 L 116/55 L Blood Pressure Mean [Left Arm] 72 75 Blood Pressure Source [Left Arm] Automatic Cuff Blood Pressure Position [Left Arm] Sitting 02 Sat by Pulse Oximetry 100 100 100 Oxygen Delivery Method Room Air Room Air 01/31/24 17:03 01/31/24 17:30 01/31/24 18:00 Temperature Temperature Source Pulse Rate 86 84 93 H Pulse Rate [Left Brachial] Respiratory Rate Blood Pressure 99/56 L 106/68 L 111/66 Blood Pressure [Left Arm] Blood Pressure Mean [Left Arm] Blood Pressure Source [Left Arm] Blood Pressure Position [Left Arm] 02 Sat by Pulse Oximetry 99 100 100 Oxygen Delivery Method Room Air 01/31/24 18:30 01/31/24 18:49 Temperature 98.5 F Temperature Source Pulse Rate 93 H 92 H Pulse Rate [Left Brachial] Respiratory Rate 20 Blood Pressure 102/75 L 102/75 L Blood Pressure [Left Arm] Blood Pressure Mean [Left Arm] Blood Pressure Source [Left Arm] Blood Pressure Position [Left Arm] 02 Sat by Pulse Oximetry 100 Oxygen Delivery Method Room Air Room Air Lab Data Lab results reviewed: Yes I reviewed the patient's lab results. Lab Results 01/31/24 14:29: Urine Color Yellow, Urine Appearance Clear, Urine pH 6.0, Ur Specific [place] 1.025, Urine Protein Negative, Urine Glucose (UA) Negative, Urine Ketones Negative, Urine Blood 1+, Urine Nitrate Negative, Urine Bilirubin 1+ A, Urine Urobilinogen 1.0, Ur Leukocyte Esterase Negative, Urine WBC 5-10, Ur Squamous Epith Cells 3-5, Urine Bacteria Trace 01/31/24 14:43: Urine Color [place], Urine Appearance Clear, Urine pH 6.0, Ur Specific [place] 1.025, Urine Protein Negative, Urine Glucose (UA) Negative, Urine Ketones Negative, Urine Blood 1+, Urine Nitrate Negative, Urine Bilirubin 1+ A, Urine Urobilinogen 1, Ur Leukocyte Esterase Negative, Tst Clinic Negative 01/31/24 15:13: VBG pH 7.37, VBG pCO2 30.7 L, VBG pO2 63.5 H, VBG HCO3 17.5 L, V BG Total CO2 18.5 L, VBG O2 Saturation 90.5 H, VBG Base Excess -7.7 L, VBG Lactic Acid 1.7 01/31/24 15:25: WBC 8.8, RBC 4.50, Hgb 13.4, Hct 41.4, MCV 92.0, MCH 29.8, MCHC 32.4, RDW 14.2, Plt Count 328, MPV 7.9, Neut % (Auto) 73.8, Lymph % (Auto) 17.3, [place] % (Auto) 5.4, Eos % (Auto) 2.6, Baso % (Auto) 0.9, Neut # (Auto) 6.5, Lymph # (Auto) 1.5, [place] # (Auto) 0.5, Eos # (Auto) 0.2, Baso # (Auto) 0.1, PT 14.8 H, INR 1.36 H, APTT 28.8, Sodium 126 L, Potassium 4.2, Chloride 100, Carbon Dioxide 22, Anion Gap 8.2, BUN 16, Creatinine 0.90, Estimated Creat Clear 85, Estimated GFR 72, Est GFR ( Amer) 87, Glucose 127 H, Lactate 1.6, Calcium 8.0 L, T otal Bilirubin 6.6 H, AST 135 H, ALT 102 H, Alkaline Phosphatase 201 H, Total Protein 7.0, Albumin 3.4 L, Globulin 3.6 H, Albumin/Globulin Ratio 0.9 L, Lipase 353 H, Serum HCG, Qual Negative 01/31/24 15:25 01/31/24 15:25 Orders (Tests/Meds): ED MEDICATIONS Discontinued Medications Generic Name Dose Route Start Last Admin Trade Name Freq PRN Reason Stop Dose Admin Lactated Ringer's 1,000 mls @ 999 mls/hr 01/31/24 15:51 01/31/24 16:08 Lactated Ringer's 1000 Ml Bag IV 01/31/24 16:51 999 mls/hr .Q1H1M ONE Administration Lactated Ringer's 1,000 mls @ 999 mls/hr 01/31/24 17:31 01/31/24 17:41 Lactated Ringer's 1000 Ml Bag IV 01/31/24 18:31 999 mls/hr .Q1H1M ONE Administration ORDERS Category Date Time Status CT abdomen pelvis wo con Stat Cat Scan 01/31/24 15:54 Completed Complete Blood Count Auto Diff Stat Lab 01/31/24 15:25 Completed Comprehensive Metabolic Panel Stat Lab 01/31/24 15:25 Completed Lactic Acid Stat Lab 01/31/24 15:25 Completed Lipase Stat Lab 01/31/24 15:25 Completed PT INR [Prothrombin Time INR] Stat Lab 01/31/24 15:25 Completed PTT [Activated Partial Thrombo Time] Stat Lab 01/31/24 15:25 Completed Serum [HCG Qualitative, Serum] Stat Lab 01/31/24 15:25 Completed UA [Urinalysis and Microscopic] Stat Lab 01/31/24 14:29 Completed Blood Culture Stat Micro 01/31/24 15:29 Received Urine Culture Stat Micro 01/31/24 14:29 Received VBG [Venous Blood Gas] Stat RT 01/31/24 15:13 Completed ECG Data Tracing #1: I reviewed this ECG and interpreted as documented below: Normal sinus rhythm with a ventricular rate of [address] changes concerning for ischemia. Normal axis and intervals. ECG initial impression date: 01/31/24 ECG initial impression time: 15:33 Medical Decision Narrative: In summary, this patient is a 34-year-old female presenting to the Emergency Department for evaluation of generally feeling unwell, decrease in urine output, right flank pain, change in urine color in the setting of cirrhosis. Differential diagnoses considered include but are not limited to cystitis, pyelonephritis, dehydration, hepatorenal syndrome, ureterolithiasis sepsis, decompensated cirrhosis. Ruling out the most morbid conditions drove assessment. It should be noted patient's history includes autoimmune hepatitis which is not at goal therapy. This complicates all aspects of care by increasing patient's risk for morbidity. On exam, the patient is lying in bed in no acute distress. Vitals are reassuring cardiac telemetry. She is jaundiced and has scleral icterus, which she states is actually improved from how she typically appears. Abdominal exam is benign. Workup included CBC, CMP, lipase, lactic acid, VBG, blood cultures, urinalysis, urine culture, EKG. EKG obtained is reassuring. Patient was given 1L IVF to assess for symptomatic improvement. Patient was found to have hematuria, so CT abdomen pelvis without IV contrast was ordered to evaluate for ureteral stones. She does not complain of any significant abdominal pain at this time I independently interpreted the scan prior to the radiologist read and noted gallstone. Please see their read for final interpretation. No obvious ureteral calcifications. They did note constipation, which I notified the patient of, but she states that she does not feel she is been constipated and does not want any medications for this at this time. Labs were obtained that demonstrated worsening liver dysfunction, but creatinine is stable. I compared her labs with prior labs she had drawn in [place] that she showed me on her phone. Her bilirubin has gone from 3.2- 6.6. Jerardo INR has gone from 1.2-1.36. Jerardo sodium has gone from 131-126. Jerardo MELD score has gone from 18-25. I spoke with Dr. Mendoza at with hepatology who advised this is likely due to dehydration secondary to her diuretics. He advised infectious workup as well as fluid resuscitation and follow-up outpatient next week for reassessment of labs. I advised patient of this and she is agreeable with this plan. Infectious workup is reassuring with no significant leukocytosis. She is afebrile with no tachycardia or other concerns. Blood cultures and urine culture were sent and are pending at this time just to be on the safe side. Patient is aware of this. On reassessment, the patient is resting comfortably with reassuring vital signs on cardiac telemetry. Ultimately after discussion with hepatology at , I feel that she is appropriate for discharge home with continued plan for outpatient follow-up next week. Strict return precautions were given as well as instructions to maintain adequate hydration. Patient was discharged after all questions were answered. Critical Care Critical Care Time Critical Care Time: No
[2024-01-31 15:38] LABS: Lactate Venous 1.7 mmol/L (0.4-2.0); VBG Base Excess -7.7 mmol/L (-2.4-2.3); VBG HCO3 17.5 mmol/L (23-30); VBG Oxygen Saturation 90.5 % (50-70); VBG PCO2 30.7 mmol/L (35-51); VBG PH 7.37 mmol/L (7.31-7.41); VBG PO2 63.5 mmol/L (28-40); VBG Total CO2 18.5 mmol/L (23-27)
[2024-01-31 15:42] LABS: Albumin Level 3.4 g/dl (3.5-5.0); Chloride 100 mmol/L (98-107); Potassium 4.2 mmoL/L (3.5-5.1); Sodium 126 mmol/L (136-145)
[2024-01-31 15:44] LABS: Microscopic, Urine URINE MICROSCOPIC (MICROSCOPIC)
[2024-01-31 15:45] LABS: Alanine Aminotransferase 102 U/L (12-78); Albumin/Globulin Ratio 0.9 (1.1-1.8); Alkaline Phosphatase 201 U/L (38-126); Anion Gap 8.2 mEq/L (5-15); Aspartate Amino Transferase 135 U/L (14-36); Bilirubin,Total 6.6 mg/dl (0.2-1.3); Blood Urea Nitrogen 16 mg/dl (7-17); Carbon Dioxide 22 mmol/L (22.0-30.0); Creatinine Clearance Estimated 85 mL/min (50-200); Estimated Glomerular Filt Rate 72 ml/min (>60); GFR (African American) 87 ML/MIN (>60); Globulin 3.6 g/dL (1.3-3.2); Lipase 353 U/L (23-300)
[2024-01-31 15:46] LABS: Activated Partial Thrombo Time 28.8 seconds (22.8-30.6); Glucose 127 mg/dl (74-100); INR 1.36 (0.9-1.1); Lactic Acid 1.6 mmol/L (0.7-2.1); Prothrombin Time 14.8 seconds (10.1-12.5)
[2024-01-31 15:46] LABS: Appearance,Urine CLEAR (Clear); Blood, Urine 1+ (Negative); Color,Urine YELLOW (Yellow); Glucose,Urine (UA) Negative (Negative); Ketones,Urine Negative (Negative); Leukocyte Esterase,Urine Negative (Negative); Nitrate,Urine Negative (Negative); Protein,Urine Negative (Negative); Specific Gravity, Urine 1.025 (1.005-1.030)
[2024-01-31 15:50] LABS: HCG Qualitative, Serum Negative (Negative)
--- NOTE | 2024-01-31 15:54 | CT_ITS ---
PROCEDURE INFORMATION: Exam: CT Abdomen And Pelvis Without Contrast Exam date and time: 01/31/2024 4:06 PM Age: 34 years old Clinical indication: Abdominal pain; Flank; Right; Additional info: R flank pain, hematuria, eval stone; H/o cirrhosis TECHNIQUE: Imaging protocol: Computed tomography of the abdomen and pelvis without contrast. Radiation optimization: All CT scans at this facility use at least one of these dose optimization techniques: automated exposure control; mA and/or kV adjustment per patient size (includes targeted exams where dose is matched to clinical indication); or iterative reconstruction. COMPARISON: No relevant prior studies available. FINDINGS: Tubes, catheters and devices: Lobulated liver consistent with cirrhosis with recannulated umbilical vein. Lungs: Calcified granuloma in the left lower lobe Liver: Normal. No mass. Gallbladder and biliary ducts: Gallstones in the gallbladder.. The gallbladder is contracted. Pancreas: Normal. No ductal dilation. Spleen: Normal. No splenomegaly. Adrenal glands: Normal. No mass. Kidneys and ureters: There is no evidence of renal or ureteral calcifications. Stomach and bowel: Findings consistent with constipation. Appendix: No evidence of appendicitis. Intraperitoneal space: Suboptimal study due to the lack of oral and intravenous contrast and lack of intraperitoneal fat. Increased density in the small bowel mesentery is nonspecific but may represent inflammation or infection.. Vasculature: Unremarkable. No abdominal aortic aneurysm. Lymph nodes: Unremarkable. No enlarged lymph nodes. Urinary bladder: Unremarkable as visualized. Reproductive: Unremarkable as visualized. Bones/joints: Unremarkable. No acute fracture. Soft tissues: Unremarkable. IMPRESSION: 1. Gallstones in the gallbladder.. The gallbladder is contracted. 2. Findings consistent with constipation. 3. Lobulated liver consistent with cirrhosis with recannulated umbilical vein. 4. Increased density in the small bowel mesentery is nonspecific but may represent inflammation or infection.. . 5 There is no evidence of renal or ureteral calcifications.
[2024-01-31 15:56] LABS: Bilirubin,Urine 1+ (Negative)
[2024-01-31 16:00] LABS: Bacteria,Urine Trace /lpf
[2024-01-31] MEDS: LACTATED RINGERS 1000ML 1,000 ML 999 ML IV ×2 (16:08→17:41)
--- NOTE | 2024-01-31 17:14 | PC.NURSE ---
DR SMART AT BEDSIDE TO UPDATE PT
[2024-01-31 17:19] LABS: Basophils # 0.1 K/mm3 (0-0.2); Basophils % 0.9 % (0.1-2.0); Eosinophils # 0.2 K/mm3 (0.0-0.4); Eosinophils % 2.6 % (0.1-12.0); Hematocrit 41.4 % (37.0-47.0); Hemoglobin 13.4 g/dL (12.2-16.2); Lymphocytes # 1.5 K/mm3 (0.7-4.5); Lymphocytes % 17.3 % (10-50); Mean Corpuscular HGB Conc 32.4 g/dL (31.8-35.4); Mean Corpuscular Hemoglobin 29.8 pg (27.0-31.2); Mean Platelet Volume 7.9 fl (7.4-10.4); Monocytes # 0.5 K/mm3 (0.1-1.0); Monocytes % 5.4 % (1.7-9.3); Neutrophils # 6.5 K/mm3 (1.8-7.8); Neutrophils % 73.8 % (37.0-80.0); Platelet Count 328 K/mm3 (142-424); Red Cell Distribution Width 14.2 % (11.5-17.5); White Blood Count 8.8 K/mm3 (4.8-10.8)
--- NOTE | 2024-01-31 17:21 | PC.NURSE ---
calling at this time.
--- NOTE | 2024-01-31 17:27 | PC.NURSE ---
o/p with at this time.
== END 2024-01-31 18:58 | disposition home or self-care (01) ==
LOC: UTC 14:47 → ER 15:00
PROVIDERS: Nurse Practitioner Family; Emergency Provider Emergency Medicine; PCP Internal Medicine
DX: R10.31 Right lower quadrant pain (principal); E87.1 Hypo-osmolality and hyponatremia; K75.4 Autoimmune hepatitis; K74.60 Unspecified cirrhosis of liver
CPT/HCPCS: 74176; 80053; 81001; 81003; 81025; 82803; 83605; 83690; 84703; 85025; 85610; 85730; 87040; 87086; 93005; 96360; 96361; 99285; J7120

== ENCOUNTER 2024-02-16 08:53 | Emergency (ER) | payer OTHER, SELFPAY ==
[2024-02-16 08:56] VITALS: BP 112/70; PULSE 95; RESP 20; TEMP 37; O2SAT 100; BMI 22.6
[2024-02-16 09:23] VITALS: BMI 22.6
[2024-02-16 10:03] VITALS: BP 93/51; PULSE 92; O2SAT 99
--- NOTE | 2024-02-16 10:06 | PC.NURSE ---
Pt ambulatory to bathroom
[2024-02-16 10:07] VITALS: BP 115/77; PULSE 87; O2SAT 100
[2024-02-16 10:08] LABS: Basophils % 0.3 % (0.1-2.0); Eosinophils # 0.2 K/mm3 (0.0-0.4); Eosinophils % 3.1 % (0.1-12.0); Hematocrit 32.9 % (37.0-47.0); Hemoglobin 10.4 g/dL (12.2-16.2); Lymphocytes # 0.9 K/mm3 (0.7-4.5); Lymphocytes % 13.5 % (10-50); Mean Corpuscular HGB Conc 31.8 g/dL (31.8-35.4); Mean Corpuscular Hemoglobin 36.1 pg (27.0-31.2); Mean Corpuscular Volume 113.5 fl (81-99); Mean Platelet Volume 9.1 fl (7.4-10.4); Monocytes # 0.6 K/mm3 (0.1-1.0); Monocytes % 8.8 % (1.7-9.3); Neutrophils # 4.9 K/mm3 (1.8-7.8); Neutrophils % 74.3 % (37.0-80.0); Platelet Count 109 K/mm3 (142-424); Red Cell Distribution Width 15.6 % (11.5-17.5); White Blood Count 6.6 K/mm3 (4.8-10.8)
--- NOTE | 2024-02-16 10:15 | PC.NURSE ---
Dr. Savage at bedside for POCUS
--- NOTE | 2024-02-16 10:26 | HMH.EDGENADL ---
Discharge Plan Disposition Patient Disposition: Home, Self-Care Chief Complaint: Abdominal Pain Prescriptions Prescriptions: No Action gabapentin 800 mg tablet 800 mg PO TID furosemide 20 mg tablet See Rx Instructions .ROUTE .COMPLEX Rx Instructions: see rx instructions albuterol sulfate [Ventolin HFA] 90 mcg/actuation HFA aerosol inhaler See Rx Instructions .ROUTE .COMPLEX Patient Comments: INHALE 2 PUFFS BY MOUTH EVERY 4 HOURS Rx Instructions: INHALE 2 PUFFS BY MOUTH EVERY 4 HOURS spironolactone 50 mg tablet See Rx Instructions .ROUTE .COMPLEX Rx Instructions: see rx instructions Referrals Follow up/Referrals: Yonatan Graves [Primary Care Provider] - See instructions Clinical Impressions Clinical Impression: Cirrhosis, Varices of other sites Instructions Patient Instructions: DI for Acute Abdominal Pain Print Language Print Language: Turkmen Discharge ED Provider: Raúl Savage General Adult HPI General Chief complaint: Abdominal Pain Stated complaint: knot on R side end stage liver failure Time Seen by Provider: 02/16/24 08:56 Mode of Arrival: Family Vehicle Source of Information: Patient and Relative Limitations: No Limitations Description of Symptoms (Recalled from ER Triage Doc. by RN): Pt c/o RLQ ABD pain with lump presents right of superpubic area. Denies any fever, chill, or n/v. She does have chronic diarrhea and bowel issues d/t automimmune liver disease. Pt follows [facility], states her MELD score has risen by 7 points since last week. History of Present Illness HPI narrative: Patient is a 34-year-old female past medical history of autoimmune hepatitis currently in the middle of transplant evaluation at who presents emergency department for evaluation of bumps in her right lower quadrant. She has noticed this over the last week, however she has had a persistent bump in her suprapubic area for longer than that. She followed up with [facility] recently and is continuing to be evaluated by them. She had fleeting chest pain last night that was substernal which she attributes to acid reflux, she does not have any chest pain currently. She has chronic right upper quadrant discomfort in her abdomen and it is not worse than baseline today. Last bowel movement this morning, loose, at her baseline. No other acute complaints at this time. Related Data Home Medications ?Medication ?Instructions ?Recorded ?Confirmed albuterol sulfate 90 mcg/actuation See Rx Instructions .Route .COMPLEX 11/12/23 01/31/24 aerosol inhaler (Ventolin HFA) furosemide 20 mg tablet See Rx Instructions .Route .COMPLEX 11/12/23 01/31/24 gabapentin 800 mg tablet 800 mg PO TID 11/12/23 01/31/24 spironolactone 50 mg tablet See Rx Instructions .Route .COMPLEX 11/12/23 01/31/24 Allergies Allergy/AdvReac Type Severity Reaction Status Date / Time amoxicillin [AMOXICILLIN] Allergy Unknown Verified 11/12/23 08:38 morphine [MORPHINE] Allergy Unknown Verified 11/12/23 08:38 Penicillins [PENICILLINS] Allergy Unknown Verified 11/12/23 08:38 [facility] Disclaimer: The information contained in this section may have been updated after the patient was seen, as this information can be updated by other users. 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 Kidney stone Anxiety Seizure disorder Urinary tract infection Kidney stone Asthma Surgical History History of tonsillectomy History of appendectomy Social History Smoking Status: Former smoker tobacco type: cigarettes packs per day: 1 alcohol intake: never current occupational status: other Travel in the last 8 weeks: None ROS Obtained: Yes Systems reviewed as appropriate & no additional complaints except as documented Physical Exam General General
[2024-02-16 10:30] VITALS: BP 108/60; PULSE 92; RESP 18; O2SAT 100
[2024-02-16 10:33] LABS: HCG Qualitative, Serum Negative (Negative)
--- NOTE | 2024-02-16 10:33 | ECG_ITS ---
APPROVED REPORT Exam: Resting ECG HR:89 bpm ECG Measurements Heart Rate 89 AXES AL 116 P 44 QRSd 97 QRS 64 QT 389 T 54 QTc 436 Conclusion SINUS RHYTHM WITH SHORT AL INTERVAL BORDERLINE ECG Electronically signed by : JAMES MARTINEZ, 02/17/2024 02:29:35
[2024-02-16 10:38] LABS: Ammonia 24 umol/L (9-30); INR 1.28 (0.9-1.1)
--- NOTE | 2024-02-16 10:47 | PC.NURSE ---
reminded pt of need for ua. denies any needs at this time. no questions or concerns voiced. call light within reach.
[2024-02-16 10:52] LABS: Chloride 98 mmol/L (98-107)
[2024-02-16 10:53] LABS: Albumin Level 3.3 g/dl (3.5-5.0); Potassium 4.2 mmoL/L (3.5-5.1); Sodium 126 mmol/L (136-145)
[2024-02-16 10:55] LABS: Troponin I < 0.01 ng/ml (0.00-0.034)
[2024-02-16 10:56] LABS: Alanine Aminotransferase 95 U/L (12-78); Albumin/Globulin Ratio 0.9 (1.1-1.8); Alkaline Phosphatase 201 U/L (38-126); Anion Gap 9.2 mEq/L (5-15); Aspartate Amino Transferase 115 U/L (14-36); Bilirubin,Total 3.8 mg/dl (0.2-1.3); Blood Urea Nitrogen 13 mg/dl (7-17); Calcium 8.3 mg/dl (8.4-10.2); Carbon Dioxide 23 mmol/L (22.0-30.0); Creatinine Clearance Estimated 88 mL/min (50-200); Estimated Glomerular Filt Rate 72 ml/min (>60); GFR (African American) 87 ML/MIN (>60); Globulin 3.7 g/dL (1.3-3.2); Glucose 95 mg/dl (74-100); Lipase 413 U/L (23-300)
[2024-02-16 11:28] LABS: Microscopic, Urine URINE MICROSCOPIC (MICROSCOPIC)
--- NOTE | 2024-02-16 11:36 | PC.NURSE ---
pt resting in bed. updated on plan of care. bed in lowest position. call light within reach. no questions or concerns voiced.
[2024-02-16 11:39] LABS: Appearance,Urine CLEAR (Clear); Bilirubin,Urine Negative (Negative); Blood, Urine Negative (Negative); Color,Urine YELLOW (Yellow); Glucose,Urine (UA) Negative (Negative); Ketones,Urine Negative (Negative); Leukocyte Esterase,Urine Negative (Negative); Nitrate,Urine Negative (Negative); Protein,Urine Negative (Negative); Urobilinogen,Urine 0.2 EU/dl (0.2)
--- NOTE | 2024-02-16 11:55 | PC.NURSE ---
dr dorman at bedside updating pt.
[2024-02-16 12:02] LABS: Squamous Epithelial Cell,Urine Occasional #/hpf (0-5)
[2024-02-16 12:04] VITALS: BP 101/56; PULSE 91; RESP 16; TEMP 36.8; O2SAT 100
== END 2024-02-16 12:05 | disposition home or self-care (01) ==
PROVIDERS: Emergency Provider Emergency Medicine; PCP Internal Medicine
DX: R10.31 Right lower quadrant pain (principal); K75.4 Autoimmune hepatitis; I86.8 Varicose veins of other specified sites
CPT/HCPCS: 80053; 81001; 82140; 83690; 84484; 84703; 85025; 85610; 93005; 99285; J7120

== ENCOUNTER 2024-02-19 08:19 | Emergency (ER) | payer OTHER, SELFPAY ==
[2024-02-19 08:20] VITALS: BP 111/70; PULSE 92; RESP 18; TEMP 36.6; O2SAT 97; BMI 22.6
--- NOTE | 2024-02-19 08:31 | EXP.UTC ---
Discharge Plan Disposition Patient Disposition: Home, Self-Care Condition: Good Prescriptions Prescriptions: New fluconazole 150 mg tablet 150 mg PO ONCE Qty: 1 3RF cefdinir 300 mg capsule 300 mg PO BID Qty: 20 0RF No Action gabapentin 800 mg tablet 800 mg PO TID furosemide 20 mg tablet See Rx Instructions .ROUTE .COMPLEX Rx Instructions: see rx instructions albuterol sulfate [Ventolin HFA] 90 mcg/actuation HFA aerosol inhaler See Rx Instructions .ROUTE .COMPLEX Patient Comments: INHALE 2 PUFFS BY MOUTH EVERY 4 HOURS Rx Instructions: INHALE 2 PUFFS BY MOUTH EVERY 4 HOURS spironolactone 50 mg tablet See Rx Instructions .ROUTE .COMPLEX Rx Instructions: see rx instructions Referrals Follow up/Referrals: Yonatan Graves [Primary Care Provider] - See instructions Activity Restrictions/Add. Instructions Additional Instructions/Restrictions: Drink plenty of fluids. Take tylenol or ibuprofen for pain or fever. Take the medications as directed. Follow up with your regular doctor. GO TO THE ER FOR ANY WORSENING SYMPTOMS Clinical Impressions Clinical Impression: Strep throat Instructions Patient Instructions: Strep Throat, DI for Strep Throat Print Language Print Language: Macanese Discharge ED Provider: Morgan Valdivia [facility] HPI General Stated complaint: sore throat Time Seen by Provider: 02/19/24 08:31 History of Present Illness Provider Complaint: She states that she has had sore throat, malaise, and chills. Related Data Home Medications ?Medication ?Instructions ?Recorded ?Confirmed albuterol sulfate 90 mcg/actuation See Rx Instructions .Route .COMPLEX 11/12/23 01/31/24 aerosol inhaler (Ventolin HFA) furosemide 20 mg tablet See Rx Instructions .Route .COMPLEX 11/12/23 01/31/24 gabapentin 800 mg tablet 800 mg PO TID 11/12/23 01/31/24 spironolactone 50 mg tablet See Rx Instructions .Route .COMPLEX 11/12/23 01/31/24 Previous Rx's ?Medication ?Instructions ?Recorded cefdinir 300 mg capsule 300 mg PO BID #20 caps 02/19/24 fluconazole 150 mg tablet 150 mg PO ONCE 1 dose #1 tab 02/19/24 Allergies Allergy/AdvReac Type Severity Reaction Status Date / Time amoxicillin [AMOXICILLIN] Allergy Unknown Verified 11/12/23 08:38 morphine [MORPHINE] Allergy Unknown Verified 11/12/23 08:38 Penicillins [PENICILLINS] Allergy Unknown Verified 11/12/23 08:38 [facility] Disclaimer: The information contained in this section may have been updated after the patient was seen, as this information can be updated by other users. 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 Kidney stone Anxiety Seizure disorder Urinary tract infection Kidney stone Asthma Surgical History History of tonsillectomy History of appendectomy Social History Smoking Status: Former smoker tobacco type: cigarettes packs per day: 1 alcohol intake: never current occupational status: other Travel in the last 8 weeks: None ROS Obtained: Yes All systems reviewed & no additional complaints except as documented Constitutional Constitutional: Reports chills and Reports fever(s) Eyes Eyes: Denies eye discharge ENT Ears, Nose, Mouth, and Throat: Reports as per HPI Cardiovascular Cardiovascular: Denies chest pain Respiratory Respiratory: Denies chest congestion and Reports cough Gastrointestinal Gastrointestingal: Reports nausea; Denies abdominal pain, constipation, cramping, diarrhea or vomiting Musculoskeletal Musculoskeletal: Denies arthralgias Integumentary/Breasts Skin/Breast: Denies rash Neurologic Neurologic: Denies paresthesias Physical Exam General General appearance: alert and in no apparent distress Head Head exam: atraumatic, normocephalic and normal inspection Eye Eye exam: Present normal appeara
[2024-02-19 08:42] LABS: UTC Strep Screen (Rapid) Positive (Negative)
[2024-02-19 09:07] VITALS: BP 111/70; PULSE 92; RESP 18; TEMP 36.6; O2SAT 97
== END 2024-02-19 09:08 | disposition home or self-care (01) ==
PROVIDERS: Emergency Provider Nurse Practitioner Family; PCP Internal Medicine
DX: J02.0 Streptococcal pharyngitis (principal); R07.0 Pain in throat
CPT/HCPCS: 87880; 99212; 99214; G0463

== ENCOUNTER 2024-05-11 18:24 | Emergency (ER) | payer OTHER, SELFPAY ==
--- OUTSIDE RECORDS SUMMARY | 2024-05-11 18:29 | XMS_ITS | Encounter Summary ---
[facility] Address [address] [place] [address] Care Team Providers Care Emergency Department Rn Name Role Phone Unavailable Primary Care Provider Unavailabl e Encounter Details Date Type Department Care Team (Late st Contact Info) Description 11/25/2013 5:17 PM EDT - 11/25/2013 11:59 PM EDT Hospital Encounter [facility] [address] [place] [id number] Bernard Lui MD [address] [address] Social History Tobacco Use Types Packs/Day Years Used Date Smoking Tobacco: Never Assessed Comments Unknown Sex and Gender Information Value Date Recorded Sex Assigned at Not on file Legal Sex Female 10:56 AM EDT Gender Identity Not on file Sexual Orientation Not on file documented as of this encounter Plan of Treatment Not on file documented as of this encounter Procedures Procedure Name Priority Date/Time Associated Diagnosis Comments URINE CULTURE Routine 11/25/2013 7:55 AM EDT documented in this encounter Results * Urine culture (11/25/2013 7:55 AM EDT) Urine specimen (specimen) Cannula / Unknown 11/25/2013 7:55 AM EDT Narrative [facility] - 11/27/2013 7:54 AM EDT Specimen Type: Urine Specimen Source: Catheterized [facility] - Culture Urine Specimen: Urine Collected: 11/25/2013 07:55 Status: FINAL ? Last Updated: 11/27/2013 07:54 Culture Result (CR) (Final) ??No Growth 2 Days us Bernard Lui MD MICROBIOLOGY - GENERAL ORDERAB LES Final Result Performing Organization Address City/State/[facility] Co de Phone Number [facility] [address] [place] [address], documented in this encounter Visit Diagnoses Not on filedocumented in this encounter
--- OUTSIDE RECORDS SUMMARY | 2024-05-11 18:29 | XMS_ITS | Encounter Summary ---
Author Organization [facility] Address [address] [place] [id number] Care Team Providers Care Lens Blocker Name Role Phone Yonatan Graves DO Primary Care Provider Farida Ortega COLLATOR OPERATOR Unavailable [phone] Source Comments This information has been disclosed to you from confidential records protectfrom disclosure by state law. You shall make no further disclosure of thisinformation without the specific, written, and informed release of theindividual to whom it pertains, or as otherwise permitted by law. A generalauthorization for the release of medical or other information is not sufficientfor the purposes of the release of HIV test results or diagnoses. [id number] Reason for Visit * Reason Comments Labs Only Encounter Details Date Type Department Care Team (Late st Contact Info) Description 10/23/2023 11:15 AM EDT Specimen [facility] [address] [facility] [address] [place] [address] Agustin Hurt MD 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) Social History Tobacco Use Types Packs/Day Years Used Date Smoking Tobacco: Former Cigarettes 0.3 1 0 07/22/2014 - 07/22/2015 Smokeless Tobacco: Never Alcohol Use Standard Drinks/Week Comments Not Currently 0 (1 standard drink = 0.6 oz pur e alcohol) PHQ-2 Answer Date Recorded PHQ-2 Total Score 2 09/25/2023 Comments No Sex and Gender Information Value Date Recorded Sex Assigned at Not on file Legal Sex Female 7:36 PM EDT Gender Identity Not on file Sexual Orientation Not on file documented as of this encounter Plan of Treatment Not on file documented as of this encounter Procedures Procedure Name Priority Date/Time Associated Diagnosis Comments HEPATIC FUNCTION PANEL Routine 10/23/2023 11:33 AM EDT 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) RENAL FUNCTION PANEL W/EGFR Routine 10/23/2023 11:33 AM EDT 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) PROTIME-INR Routine 10/23/2023 11:33 AM EDT 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) CBC Routine 10/23/2023 11:33 AM EDT 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) documented in this encounter Results * (ABNORMAL) Protime-INR (10/23/2023 11:33 AM EDT) Protime 17.8(H) 12.1 - 15.1 seconds 10/23/2023 7:35 PM EDT [facility] INR 1.4(H) 0.9 - 1.1 10/23/2023 7:35 PM EDT [facility] Comment: RECOMMENDED THERAPEUTIC RANGES USING INR : ?Stable oral anticoagulant therapy: ? 2.0 - 3.0 ?Mechanical prosthetic heart valve: ? 2.5 - 3.5 ?Recurrent acute myocardial infarction: ? 2.5 - 3.5 Plasma 10/23/2023 11:3 3 AM EDT 10/23/2023 6:52 PM EDT us Yesmalik Hurt MD LAB BLOOD ORDERABLES Final Res ult [facility] [address] * (ABNORMAL) CBC (10/23/2023 11:33 AM EDT) WBC 4.8 3.8 - 10.8 10E3/uL 10/23/2023 7:05 PM EDT [facility] RBC 2.99(L) 3.80 - 5.10 10E6/uL 10/23/2023 7:05 PM EDT [facility] Hemoglobin 11.4(L) 11.7 - 15.5 g/dL 10/23/2023 7:05 PM EDT [facility] Hematocrit 32.0(L) 35.0 - 45.0 % 10/23/2023 7:05 PM EDT [facility] MCV 107.2(H) 80.0 - 100.0 fL 10/23/2023 7:05 PM EDT [facility] MCH 38.1(H) 27.0 - 33.0 pg 10/23/2023 7:05 PM EDT [facility] MCHC 35.5 32.0 - 36.0 g/dL 10/23/2023 7:05 PM EDT [facility] RDW 14.1 11.0 - 15.0 % 10/23/2023 7:05 PM EDT [facility] Platelets 98(L) 140 - 400 10E3/uL 10/23/2023 7:05 PM EDT [facility] MPV 9.1 7.5 - 11.5 fL 10/23/2023 7:05 PM EDT [facility] Whole Blood 10/23/2023 11:3 3 AM EDT 10/23/2023 6:56 PM EDT us Agustin Hurt MD LAB BLOOD ORDERABLES Final Res ult [facility] [address] [facility]. [address] * (ABNORMAL) Renal Function Panel w/EGFR (10/23/2023 11:33 AM EDT) Sodium 132(L) 133 - 146 mmol/L 10/23/2023 7:15 PM EDT [facility] Potassium 4.0 3.5 - 5.3 mmol/L 10/23/2023 7:15 PM EDT [facility] Chloride 97(L) 98 - 110 mmol/L 10/23/2023 7:15 PM EDT [facility] CO2 27 21 - 33 mmol/L 10/23/2023 7:15 PM EDT [facility] Anion Gap 8 3 - 16 mmol/L 10/23/2023 7:15 PM EDT [facility] BUN 10 7 - 25 mg/dL 10/23/2023 7:15 PM EDT [facility] Creatinine 0.88 0.60 - 1.30 mg/dL 10/23/2023 7:15 PM EDT [facility] Glucose 91 70 - 100 mg/dL 10/23/2023 7:15 PM EDT [facility] Calcium 9.0 8.6 - 10.3 mg/dL 10/23/2023 7:15 PM EDT [facility] Phosphorus 4.1 2.1 - 4.7 mg/dL 10/23/2023 7:15 PM EDT [facility] Albumin 3.4(L) 3.5 - 5.7 g/dL 10/23/2023 7:15 PM EDT [facility] Osmolality, Calculated 273(L) 278 - 305 mOsm/kg 10/23/2023 7:15 PM EDT [facility] EGFR 89 10/23/2023 7:15 PM EDT [facility] Comment:As of 2021, the estimated GFR is calculated using the 2020 Chronic Kidney Disease Epidemiology Collaboration (CKD-EPI) equation. In line with the NKF-ASN Task Force Recommendations, this equation does not include a coefficient for race. A single eGFR value is calculated for each patient. The reference interval is >60 mL/min/1.73m2. eGFR values greater than 90 will be reported as >90mL/min/1.73m2. Reference: Usama C, Hernandez M, Chato DC, Suzy [place], Jyoti [place], Nas [place], et al. A Unifying Approach for GFR Estimation: Recommendations of the NKF-ASN Task Force on Reassessing the inclusion of Race in Diagnosing Kidney Disease. Am J Kidney Dis. 2020. Plasma 10/23/2023 11:3 3 AM EDT 10/23/2023 6:57 PM EDT us Agustin Hurt MD LAB BLOOD ORDERABLES Final Res ult Performing Organization Address [facility] Co de Phone Number [facility] [address] [facility] * (ABNORMAL) Hepatic Function Panel (10/23/2023 11:33 AM EDT) Total Bilirubin 3.6(H) 0.0 - 1.5 mg/dL 10/23/2023 7:15 PM EDT [facility] Bilirubin, Direct 1.40(H) 0.00 - 0.40 mg/dL 10/23/2023 7:15 PM EDT [facility] AST 53(H) 13 - 39 U/L 10/23/2023 7:15 PM EDT [facility] ALT 45 7 - 52 U/L 10/23/2023 7:15 PM EDT [facility] Alkaline Phosphatase 136(H) 36 - 125 U/L 10/23/2023 7:15 PM EDT [facility] Total Protein 7.2 6.4 - 8.9 g/dL 10/23/2023 7:15 PM EDT [facility] Albumin 3.4(L) 3.5 - 5.7 g/dL 10/23/2023 7:15 PM EDT [facility] Bilirubin, Indirect 2.20(H) 0.00 - 1.10 mg/dL 10/23/2023 7:15 PM EDT [facility] Plasma 10/23/2023 11:3 3 AM EDT 10/23/2023 6:57 PM EDT us Agustin Hurt MD LAB BLOOD ORDERABLES Final Res ult Performing Organization Address [facility]/ZIP Co de Phone Number [facility] [address] documented in this encounter Visit Diagnoses Diagnosis 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) documented in this encounter Additional Health Concerns Assessment Noted Time PHQ-9 Depression Total Score: 13 04/04/2 024 11:52 AM EDT documented as of this encounter Care Teams Lens Blocker Relationship Specialty Start Date End Date Yonatan Graves DO [address] [place] [address] PCP - General 09/02/23 Farida Ortega, COLLATOR OPERATOR [address] [place] [address] Referring Physician Gastroenterology 09/02/23 documented as of this encounter
--- OUTSIDE RECORDS SUMMARY | 2024-05-11 18:29 | XMS_ITS | Encounter Summary ---
Author Organization [facility] Address [facility] [place] [address] Care Team Providers Care Operations And Maintenance Technican Name Role Phone Yonatan Graves DO Primary Care Provider Farida Ortega CHAIN MACHINE OPERATOR Unavailable [phone] Source Comments This information has been disclosed [...] release of HIV test results or diagnoses. [id number] Encounter Details Date Type Department Care Team (Late st Contact Info) Description 12/19/2023 Telephone [facility] [address] [facility], [address] [place] [id number] Agustin Hurt MD Social History Tobacco Use Types Packs/Day Years [...] on file documented as of this encounter Visit Diagnoses Not on filedocumented in this encounter Additional Health Concerns Assessment Noted Time PHQ-9 Depression Total Score: 13 024 11:52 AM EDT documented as of this encounter Care Teams Operations And Maintenance Technican Relationship Specialty Start Date End Date Yonatan Graves DO [address] [place] [address] PCP - General 09/02/23 Farida Ortega, CHAIN MACHINE OPERATOR [address] [place] [address] Referring Physician Gastroenterology 09/02/23 documented as of this encounter
--- OUTSIDE RECORDS SUMMARY | 2024-05-11 18:29 | XMS_ITS | Encounter Summary ---
Author Organization [facility] Address [address] [place] [address] Care Team Providers Care Independent Agent Music Education Name Role Phone Yonatan Graves DO Primary Care Provider Farida Ortega POSTMASTER Unavailable Source Comments This information has been disclosed [...] release of HIV test results or diagnoses. [id number] Reason for Visit * Reason Comments Labs Only * Auth/Cert (Routine) Specialty Diagnoses / Procedures Referred By Roselyn mccollum Referred To Contact Radiology [facility] at [address] [address] Phone: tel: Referral ID Status Reason Start Date Expiration Date Visits Re quested Visits Authorized [id number] 1 1 Encounter Details Date Type Department Care Team (Late st Contact Info) Description 02/04/2024 3:30 PM EDT [facility] [address] [place] [address] Agustin Hurt MD Decompensated hepatic cirrhosis (CMS-HCC); 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) [...] Procedure Name Priority Date/Time Associated Diagnosis Comments PHOSPHATIDYLETHANOL CONFIRMATION, B Routine 02/04/2024 4:00 PM EDT 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) HEPATIC FUNCTION PANEL Routine 4:00 PM EDT 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) RENAL FUNCTION PANEL W/EGFR Routine 02/04/2024 4:00 PM EDT 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) IRON STUDIES Routine 02/04/2024 4:00 PM EDT Decompensated hepatic cirrhosis (CMS-HCC) [id number] Routine 02/04/2024 4 :00 PM EDT Decompensated hepatic cirrhosis (CMS-HCC) CERULOPLASMIN Routine 02/04/2024 4:00 PM EDT Decompensated hepatic cirrhosis (CMS-HCC) AFP TUMOR MARKER Routine 02/04/2024 4:00 PM EDT 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) PROTIME-INR Routine 02/04/2024 4:00 PM EDT 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) CBC Routine 02/04/2024 4:00 PM EDT 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) FERRITIN Routine 02/04/2024 4:00 PM EDT Decompensated hepatic cirrhosis (CMS-HCC) documented in this encounter Results * Phosphatidylethanol Confirmation, B (02/04/2024 4:00 PM EDT) PETH 16:0/18.1 (POPETH) <10 Cutoff: 10 ng/mL 02/07/2024 11:19 AM EDT [facility] Comment: Phosphatidylethanol (PEth) homologues result interpretation PEth 16:0/18:1 (POPEth) Less than 10 ng/mL: Not detected 10 - 19 ng/mL: Abstinence or light alcohol consumption (<2 drinks per day for several days a week) 20 - 200 ng/mL: Moderate alcohol consumption (up to 4 drinks per day for several days a week) Greater than 200 ng/mL: Heavy alcohol consumption or chronic alcohol use (at least 4 drinks per day several days a week) (Reference: Joycelyn Weller and Claude Ball 2018 J. Forensic Sci) PETH 16:0/18.2 (PLPETH) <10 Cutoff: 10 ng/mL 02/07/2024 11:19 AM EDT [facility] Comment: PEth 16:0/18:2 (PLPEth) Reference ranges are not well established PEth Interpretation Negative. 02/06 11:19 AM EDT [facility] Comment: ADDITIONAL INFORMATION This report is intended for use in clinical monitoring and management of patients. ??It is not intended for use in employment-related testing. This test was developed and its performance characteristics determined by [facility] in a manner consistent with CLIA requirements. This test has not been cleared or approved by the U.S. Food and Drug Administration. Test Performed by: [facility] - [address] [address] Hse Advisor: Alexia David Ph.D.; CLIA# [id number] Whole Blood 02/04/2024 4:00 PM EDT 02/07/2024 11:19 AM EDT us Agustin Hurt MD LAB BLOOD ORDERABLES Final Res ult [facility] [address] * AFP tumor marker (02/04/2024 4:00 PM EDT) Pathologist [facility] AFP-Tumor Marker 8.7 0.0 - 9.0 ng/mL 02/04/2024 5:45 PM EDT [facility] Serum 02/04/2024 4:00 PM EDT 02/04/2024 5:13 PM EDT Narrative [facility] - 02/04/2024 5:45 PM EDT The testing method for AFP is a chemiluminescent immunoassay manufactured by [employer] Concentrations of AFP obtained by different assay methods or kits may vary and cannot be used interchangeably. AFP results cannot be interpreted as absolute evidence of the presence or absence of malignant disease. us Agustin Hurt MD LAB BLOOD ORDERABLES Final Res ult [facility] [address] * (ABNORMAL) Renal Function Panel w/EGFR (02/04/2024 4:00 PM EDT) Pathologist [facility] Sodium 125(L) 133 - 146 mmol/L 02/04/2024 5:44 PM EDT [facility] Potassium 4.2 3.5 - 5.3 mmol/L 02/04/2024 5:44 PM EDT [facility] Chloride 94(L) 98 - 110 mmol/L 02/04/2024 5:44 PM EDT [facility] CO2 22 21 - 33 mmol/L 02/04/2024 5:44 PM EDT [facility] Anion Gap 9 3 - 16 mmol/L 02/04/2024 5:44 PM EDT [facility] BUN 14 7 - 25 mg/dL 02/04/2024 5:44 PM EDT [facility] Creatinine 0.95 0.60 - 1.30 mg/dL 02/04/2024 5:44 PM EDT [facility] Glucose 127(H) 70 - 100 mg/dL 02/04/2024 5:44 PM EDT [facility] Calcium 8.7 8.6 - 10.3 mg/dL 02/04/2024 5:44 PM EDT [facility] Phosphorus 3.4 2.1 - 4.7 mg/dL 02/04/2024 5:44 PM EDT [facility] Albumin 3.4(L) 3.5 - 5.7 g/dL 02/04/2024 5:44 PM EDT [facility] Osmolality, Calculated 262(L) 278 - 305 mOsm/kg 02/04/2024 5:44 PM EDT [facility] EGFR 81 02/04/2024 5:44 PM EDT [facility] Comment:As of 2021, the estimated GFR [...] Disease. Am J Kidney Dis. 2020. Plasma 02/04/2024 4:00 PM EDT 02/04/2024 5:15 PM EDT us Agustin Hurt MD LAB BLOOD ORDERABLES Final Res ult [facility] [address] [place], [place] [address] * (ABNORMAL) Hepatic Function Panel (02/04/2024 4:00 PM EDT) Total Bilirubin 6.3(H) 0.0 - 1.5 mg/dL 02/04/2024 5:44 PM EDT [facility] Bilirubin, Direct 3.04(H) 0.00 - 0.40 mg/dL 02/04/2024 5:44 PM EDT [facility] AST 93(H) 13 - 39 U/L 02/04/2024 5:44 PM EDT [facility] ALT 83(H) 7 - 52 U/L 02/04/2024 5:44 PM EDT [facility] Alkaline Phosphatase 198(H) 36 - 125 U/L 02/04/2024 5:44 PM EDT [facility] Total Protein 6.8 6.4 - 8.9 g/dL 02/04/2024 5:44 PM EDT [facility] Albumin 3.4(L) 3.5 - 5.7 g/dL 02/04/2024 5:44 PM EDT [facility] Bilirubin, Indirect 3.26(H) 0.00 - 1.10 mg/dL 02/04/2024 5:44 PM EDT [facility] Plasma 02/04/2024 4:00 PM EDT 02/04/2024 5:15 PM EDT us Yesmalik Hurt MD LAB BLOOD ORDERABLES Final Res ult Performing Organization Address City/State/[facility] Co de Phone Number [facility] [address] * (ABNORMAL) Protime-INR (02/04/2024 4:00 PM EDT) Protime 17.2(H) 12.1 - 15.1 seconds 02/04/2024 5:41 PM EDT [facility] INR 1.3(H) 0.9 - 1.1 02/04/2024 5:41 PM EDT [facility] Comment: RECOMMENDED THERAPEUTIC RANGES USING INR : ?Stable oral anticoagulant therapy: ? 2.0 - 3.0 ?Mechanical prosthetic heart valve: ? 2.5 - 3.5 ?Recurrent acute myocardial infarction: ? 2.5 - 3.5 Plasma 02/04/2024 4:00 PM EDT 02/04/2024 5:13 PM EDT us Agustin Hurt MD LAB BLOOD ORDERABLES Final Res ult Performing Organization Address City/State/[facility] Co de Phone Number [facility] [address] [id number], [place] * (ABNORMAL) CBC (02/04/2024 4:00 PM EDT) WBC 6.1 3.8 - 10.8 10E3/uL 02/04/2024 5:24 PM EDT [facility] RBC 2.86(L) 3.80 - 5.10 10E6/uL 02/04/2024 5:24 PM EDT [facility] Hemoglobin 10.6(L) 11.7 - 15.5 g/dL 02/04/2024 5:24 PM EDT [facility] Hematocrit 29.7(L) 35.0 - 45.0 % 02/04/2024 5:24 PM EDT [facility] MCV 103.9(H) 80.0 - 100.0 fL 02/04/2024 5:24 PM EDT [facility] MCH 37.1(H) 27.0 - 33.0 pg 02/04/2024 5:24 PM EDT [facility] MCHC 35.8 32.0 - 36.0 g/dL 02/04/2024 5:24 PM EDT [facility] RDW 15.3(H) 11.0 - 15.0 % 02/04/2024 5:24 PM EDT [facility] Platelets 93(L) 140 - 400 10E3/uL 02/04/2024 5:24 PM EDT [facility] MPV 9.3 7.5 - 11.5 fL 02/04/2024 5:24 PM EDT [facility] Whole Blood 02/04/2024 4:00 PM EDT 02/04/2024 5:14 PM EDT Agustin Hurt MD LAB BLOOD ORDERABLES Final Res ult [facility] [address] [facility] * Ceruloplasmin (02/04/2024 4:00 PM EDT) Ceruloplasmin 25.6 18.0 - 58.0 mg/dL 02/04/2024 5:44 PM EDT [facility] Comment: Effective 03/25/2016: The units for ceruloplasmin have changed from mg/L to mg/dL. The new reference range is 18-58 mg/dL. ??Historical values can be converted from mg/L to mg/dL by dividing by a factor of 10. Serum 02/04/2024 4:00 PM EDT 02/04/2024 5:13 PM EDT Agustin Hurt MD LAB BLOOD ORDERABLES Final Res ult Performing Organization Address [facility] Co de Phone Number [facility] [address] [facility] * Ferritin (02/04/2024 4:00 PM EDT) Ferritin 150.9 11.0 - 306.8 ng/mL 02/04/2024 5:58 PM EDT [facility] Serum 02/04/2024 4:00 PM EDT 02/04/2024 5:13 PM EDT Agustin Hurt MD LAB BLOOD ORDERABLES Final Res ult [facility] [address] [facility] * (ABNORMAL) Iron Studies (Iron + TIBC) (02/04/2024 4:00 PM EDT) Iron 214(H) 50 - 212 ug/dL 02/04/2024 5:42 PM EDT [facility] % Iron Saturation 57.5(H) 15.0 - 55.0 % 02/04/2024 5:42 PM EDT [facility] TIBC 372 265 - 497 ug/dL 02/04/2024 5:42 PM EDT [facility] Serum 02/04/2024 4:00 PM EDT 02/04/2024 5:15 PM EDT us Agustin Hurt MD LAB BLOOD ORDERABLES Final Res ult [facility] [address] [facility] [place]. [address] * Cyong-3-ugmuxrssdxc (02/04/2024 4:00 PM EDT) A-1 Antitrypsin 180.0 84.0 - 218.0 mg/dL 02/04/2024 5:44 PM EDT [facility] Serum 02/04/2024 4:00 PM EDT 02/04/2024 5:13 PM EDT Agustin Hurt MD LAB BLOOD ORDERABLES Final Res ult [facility] [address] [facility] [place]. [address] documented in this encounter Visit Diagnoses Diagnosis Decompensated hepatic cirrhosis (CMS-HCC) 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) documented in this encounter Additional Health Concerns Assessment Noted Time PHQ-9 Depression Total Score: 13 024 11:52 AM EDT documented as of this encounter Care Teams Independent Agent Music Education Relationship Specialty Start Date End Date Yonatan Graves DO [address] [place] [address] PCP - General 09/02/23 Farida Ortega NP [address] [place] [address] Referring Physician Gastroenterology 09/02/23 documented as of this encounter
--- OUTSIDE RECORDS SUMMARY | 2024-05-11 18:29 | XMS_ITS | Encounter Summary ---
Author Organization [facility] Address Formerly named [facility] [place] [address] Care Team Providers Care Associate Marketing Manager Name Role Phone Yonatan Graves DO Primary Care Provider Farida Ortega MULLING MACHINE OPERATOR Unavailable [phone] Source Comments This information has been disclosed [...] release of HIV test results or diagnoses. [id number] Reason for Visit * Reason Onset Date Comments Medication Refill 10/31/2023 Refill Request 2nd Attempt Encounter Details Date Type Department Care Team (Late st Contact Info) Description 10/31/2023 Refill [facility] Gastroenterology at [facility] [address] [place] [address], [address] [place] [address] Agustin Hurt MD Social History Tobacco [...] on file documented as of this encounter Miscellaneous Notes * Telephone Encounter - Precious Dc - 11/04/2023 1:57 PM EDT Pt called to follow up on this encounter Pt states the pharmacy received furosemide but not spironolactone. Pt states she is out of spironolactone and is requesting the script be sent in as soon as possible Pt can be reached at [phone] * Telephone Encounter - Leanne Benavides MA - 11/03/2023 9:13 AM EDT Last OV: 10/23/2023 Next OV: 03/22/2024 Last Labs: 10/23/2023 Last refill: Comment: documented in this encounter Plan of Treatment Not on file documented as of this encounter Visit Diagnoses Not on filedocumented in this encounter Additional Health Concerns Assessment Noted Time PHQ-9 Depression Total Score: 13 024 11:52 AM EDT documented as of this encounter Care Teams Associate Marketing Manager Relationship Specialty Start Date End Date Yonatan Graves DO [address] [place] [address] PCP - General 09/02/23 Farida Ortega, MULLING MACHINE OPERATOR [address] [place] [address] Referring Physician Gastroenterology 09/02/23 documented as of this encounter
--- OUTSIDE RECORDS SUMMARY | 2024-05-11 18:29 | XMS_ITS | Encounter Summary ---
Author Organization [facility] Address [address] [place] [address] Care Team Providers Care Process Development Associate Name Role Phone Yonatan Graves DO Primary Care Provider Farida Ortega MILITARY SCIENCE INSTRUCTOR Unavailable [phone] Source Comments This information has been disclosed [...] release of HIV test results or diagnoses. [id number] Encounter Details Date Type Department Care Team (Latest Contact Info) Description 01/15/2024 Travel Social History Tobacco Use Types Packs/Day Years [...] documented as of this encounter Care Teams Process Development Associate Relationship Specialty Start Date End Date Yonatan Graves DO [address] [place] [address] PCP - General 09/02/23 Farida Ortega NP [address] [place] [address] Referring Physician Gastroenterology 09/02/23 documented as of this encounter
--- OUTSIDE RECORDS SUMMARY | 2024-05-11 18:29 | XMS_ITS | Encounter Summary ---
Author Organization [facility] Address [address] [place] [address] Care Team Providers Care Vault Installer Name Role Phone Yonatan Graves DO Primary Care Provider Farida Ortega VALLEZ FILTER OPERATOR Unavailable [phone] Source Comments This information has been disclosed [...] release of HIV test results or diagnoses. [id number] Encounter Details Date Type Department Care Team (Latest Contact Info) Description 05/10/2024 Travel Social History Tobacco Use Types Packs/Day [...] documented as of this encounter Care Teams Vault Installer Relationship Specialty Start Date End Date Yonatan Graves DO [address] [place] [address] PCP - General 09/02/23 Farida Ortega NP [address] [place] [address] Referring Physician Gastroenterology 09/02/23 documented as of this encounter
--- OUTSIDE RECORDS SUMMARY | 2024-05-11 18:29 | XMS_ITS | Encounter Summary ---
Author Organization [facility] Address [address] [place] [address] Care Team Providers Care Amortization Schedule Clerk Name Role Phone Yonatan Graves DO Primary Care Provider Farida Ortega FENCE POST CUTTER Unavailable [phone] Source Comments This information has been disclosed [...] release of HIV test results or diagnoses. [id number] Encounter Details Date Type Department Care Team (Latest Contact Info) Description 02/02/2024 Travel Social History Tobacco Use Types Packs/Day [...] documented as of this encounter Care Teams Amortization Schedule Clerk Relationship Specialty Start Date End Date Yonatan Graves DO [address] [place] [address] PCP - General 09/02/23 Farida Ortega NP [address] [place] [address] Referring Physician Gastroenterology 09/02/23 documented as of this encounter
--- OUTSIDE RECORDS SUMMARY | 2024-05-11 18:29 | XMS_ITS | Encounter Summary ---
Author Organization [facility] Address [address] [place] [address] Care Team Providers Care Pci Security Consultant Name Role Phone Yonatan Graves DO Primary Care Provider Farida Ortega LAND LEASING EXAMINER Unavailable [phone] Source Comments This information has been disclosed [...] release of HIV test results or diagnoses. [id number] Encounter Details Date Type Department Care Team (Late st Contact Info) Description 10/29/2023 Chart Note [facility] Liver Transplant at [address], [address] [place] [phone] Abdullahi Cano RN Reviewed with ORALIA. Will close referral. Refer to ORALIA note for details. Social History Tobacco Use Types Packs/Day Years [...] on file documented as of this encounter Progress Notes * Abdullahi Cano RN - 10/29/2023 1:06 PM EDT Reviewed with ORALIA. Will close referral. Refer to ORALIA hirsch for details. documented in this encounter Plan of Treatment Not on file documented as of this encounter Visit Diagnoses Not on filedocumented in this encounter Additional Health Concerns Assessment Noted Time PHQ-9 Depression Total Score: 13 024 11:52 AM EDT documented as of this encounter Care Teams Pci Security Consultant Relationship Specialty Start Date End Date Yonatan Graves DO [address] [place] [address] PCP - General 09/02/23 Farida Ortega, LAND LEASING EXAMINER [address] [place] [address] Referring Physician Gastroenterology 09/02/23 documented as of this encounter
--- OUTSIDE RECORDS SUMMARY | 2024-05-11 18:29 | XMS_ITS | Clinical Summary ---
Author Organization [facility] Address [facility] [place] [address] Care Team Providers Care Corporate Travel Consultant Name Role Phone Yonatan Graves DO Primary Care Provider Farida Ortega COMMERCIAL ESCROW OFFICER Unavailable [phone] Source Comments This information has been disclosed to you from confidential records protectedfrom disclosure by state law. You shall make no further disclosure of thisinformation without the specific, written, and informed release of theindividual to whom it pertains, or as otherwise permitted by law. A generalauthorization for the release of medical or other information is not sufficientfor the purposes of therelease of HIV test results or diagnoses. [id number] Allergies Active Allergy Reactions Criticality Noted Date Comments Amoxicillin Rash Low 09/01/2023 Morphine Rash Low 12/08/2017 Penicillins Rash Low 06/06/2015 Medications furosemide (LASIX) 20 MG tablet Take 3 tablets (60 mg total) by mouth 2 times a day. 180 tablet 12/11/2023 Active gabapentin (NEURONTIN) 800 MG tablet Take 1 tablet (800 mg total) by mouth 3 times a day. Active spironolactone (ALDACTONE) 50 MG tablet Take 3 tablets (150 mg total) by mouth 2 times a day. 150 mg AM and 100 mg PM Active Active Problems No known active problems Encounters Date Type Department Care Team Description 05/10/2024 Travel 02/16/2024 Telephone [facility] Gastroenterology at [facility] Office [address] [facility], [address] [place] [address] Brynn Ghosh RN 02/09/2024 Orders Only [facility] Gastroenterology at [facility] [address] [facility], [address] [place] [address] Mario Ramirez MD 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 from Last 3 Months Family History 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 Relation Comments Cirrhosis Father Liver disease Father Relation Status Comments Father Social History Tobacco Use Types Packs/Day Years Used Date Smoking Tobacco: Former Cigarettes 0.3 1 0 07/22/2014 - 07/22/2015 Smokeless Tobacco: Never Tobacco Cessation:Counseling Given: Not Answered Alcohol Use Standard Drinks/Week Comments Not Currently 0 (1 standard drink = 0.6 oz pur e alcohol) PHQ-2 Answer Date Recorded PHQ-2 Total Score 2 09/25/2023 Comments No Sex and Gender Information Value Date Recorded Sex Assigned at Not on file Legal Sex Female 7:36 PM EDT Gender Identity Not on file Sexual Orientation Not on file Last Filed Vital Signs Vital Sign Reading Time Taken Comments Blood Pressure 101/59 01/15/2024 11:08 AM EDT Pulse 91 01/15/2024 11:08 AM EDT Temperature 37.1 ??C (98.7 ??F) 09/02/2023 7:40 AM ED T Respiratory Rate 18 09/02/2023 12:06 PM EDT Oxygen Saturation 100% 01/15/2024 11:08 AM EDT Inhaled Oxygen Concentration 100% 01/15/2024 1 1:08 AM EDT Weight 61.7 kg (136 lb) 02/04/2024 1:58 PM EDT Height 165.1 cm (5' 5 ) 01/15/2024 11:08 AM EDT Body Mass Index 22.63 01/15/2024 11:08 AM EDT Plan of Treatment Health Maintenance Due Date Last Done Comments Immunization: Pneumococcal (1 of 2 - PCV) 01/26/1996 HIV Screening 01/26/2008 Immunization: DTaP/Tdap/Td (1 - Tdap) 2009 Immunization: Hepatitis A (1 of 2 - Risk 2-dose series) 2009 Immunization: Hepatitis B (1 of 3 - 19+ 3-dose series) 2009 Cervical Cancer Screening/Pa p Smear (MyChart) 01/26/2020 Immunization: COVID-19 ( season) 2024 Immunization: Influenza (MyChart) (#1) 2024 Depression Screening 09/24/2024 09/25/2023, 09/25/19 24 Hepatitis C Screening (MyChart) Completed 4 Procedures Procedure Name Priority Date/Time Associated Diagnosis Comments ED HCV AB REFLEX TO HCV QUANT Routine 09/01/2023 10:37 PM EDT from Last 3 Months or Most Recently Relevant to Health Maintenance Results * (ABNORMAL) ED HCV Ab Reflex To HCV Quant (09/01/2023 10:37 PM EDT) HCV Ab Reactive( A) Nonreactive 09/02/2023 5:03 AM EDT [facility] Comment:Health Department no tified in accordance with reportable infectious disease guidelines. HCVAB Number 4.50(H) 0.00 - 0.79 S/CO 09/02/2023 5:03 AM EDT [facility] Serum 09/01/2023 10:3 7 PM EDT 09/01/2023 10:54 PM EDT Shiraz Rivera MD LAB BLOOD ORDERABLES Final Res ult [facility] [address] [place] [address], [facility] from Last 3 Months or Most Recently Relevant to Health Maintenance Insurance [facility] [employer] MED[facility]ID [facility] [employer] MEDICAID Care Teams Corporate Travel Consultant Relationship Specialty Start Date End Date Yonatan Graves DO [address] [place] [address] PCP - General 09/02/23 Farida Ortega, COMMERCIAL ESCROW OFFICER [address] [place] [address] Referring Physician Gastroenterology 09/02/23
--- OUTSIDE RECORDS SUMMARY | 2024-05-11 18:29 | XMS_ITS | Encounter Summary ---
Author Organization [place] Address [facility] [place] [address] Care Team Providers Care Position Clerk Name Role Phone Yonatan Graves DO Primary Care Provider Farida Ortega SUPERVISOR ROVING Unavailable [phone] Source Comments This information has been disclosed [...] release of HIV test results or diagnoses. [id number] Reason for Visit * Reason Onset Date Comments Medication Refill 10/31/2023 Refill Request 3rd Attempt Encounter Details Date Type Department Care Team (Late st Contact Info) Description 10/31/2023 Refill [facility] at [facility] [address] [place] [address], [address] [place] [address] Agustin Hurt MD Social History Tobacco [...] encounter Miscellaneous Notes * Telephone Encounter - Agnieszka Alexander MA - 11/04/2023 1:14 PM EDT Pt called to follow up on this encounter. I spoke with Leanne Benavides MA in office who stated she would ask covering MD to sign Rx. Pt has been out of medicine since 10/30 and is retaining fluid in her stomach. FYI * Telephone Encounter - Leanne Benavides MA - 11/04/2023 8:33 AM EDT Possible duplicate, patient calling in to check on encounter, states they are out of meds. * Telephone Encounter - Agnieszka Alexander MA - 11/04/2023 8:16 AM EDT Pt called to follow up on this encounter and is requesting Rx be sent to the pharmacy [facility]. Pt is out of medication. * Telephone Encounter - Leanne Benavides MA - 11/03/2023 9:12 AM EDT Last OV: 10/23/2023 Next OV: 03/22/2024 Last Labs: 10/23/2023 Last refill: Comment: documented in this encounter Plan of Treatment Not on file documented as of this encounter Visit Diagnoses Not on filedocumented in this encounter Additional Health Concerns Assessment Noted Time PHQ-9 Depression Total Score: 13 024 11:52 AM EDT documented as of this encounter Care Teams Position Clerk Relationship Specialty Start Date End Date Yonatan Graves DO [address] [place] [address] PCP - General 09/02/23 Farida Ortega, SUPERVISOR ROVING [address] [place] [address] Referring Physician Gastroenterology 09/02/23 documented as of this encounter
--- OUTSIDE RECORDS SUMMARY | 2024-05-11 18:29 | XMS_ITS | Encounter Summary ---
Author Organization [facility] Address [facility] [place] [facility] [place] [address] Care Team Providers Care Lab Technician Name Role Phone Yonatan Graves DO Primary Care Provider Farida Ortega ELECTRIC MOTOR CONTROLS ASSEMBLER Unavailable [phone] Source Comments This information has been disclosed [...] release of HIV test results or diagnoses. [id number] Health Encounter Details Date Type Department Care Team (Late st Contact Info) Description 02/09/2024 Orders Only [facility] G[facility]enterology at [facility] [address] [facility], [address] [facility] [place] [id number] Mario Ramirez MD [address] [place] [address] 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 Social History Tobacco Use Types Packs/Day Years [...] as of this encounter Plan of Treatment Scheduled Orders Name Type Priority Associated Diagnoses Orde r Schedule Basic metabolic panel Lab Routine 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) 1 Occurrences starting 02/09/2024 until 08/23/2024 documented as of this encounter Visit Diagnoses Diagnosis 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)- Primary documented in this encounter Additional Health Concerns Assessment Noted Time PHQ-9 Depression Total Score: 13 024 11:52 AM EDT documented as of this encounter Care Teams Lab Technician Relationship Specialty Start Date End Date Yonatan Graves DO [address] [place] [address] PCP - General 09/02/23 Farida Ortega, ELECTRIC MOTOR CONTROLS ASSEMBLER [address] [place] [address] Referring Physician Gastroenterology 09/02/23 documented as of this encounter
--- OUTSIDE RECORDS SUMMARY | 2024-05-11 18:29 | XMS_ITS | Encounter Summary ---
Author Organization [facility] Address [address] [place] [id number] Care Team Providers Care Shipping And Receiving Name Role Phone Kierra Guajardo MD Primary Care Provide r Reason for Referral * Diagnostic Imaging (Routine) - Authorized Specialty Diagnoses / Procedures Referred By Contac t Referred To Contact Obstetrics and Gynecology Diagnoses Amenorrhea Procedures US Non-ob Transvaginal Pao Hanley APRN [address] [facility] [address] [place] [address] Phone: tel: fax: [facility] [address] [place] [address] Phone: tel:[phone] fax:[phone] Referral ID Status Reason Start Date Expiration Date V isits Requested Visits Authorized [id number] Authorized 11/11/2023 11/10/2024 1 1 Reason for Visit * Reason Comments Annual New patient Encounter Details Date Type Department Care Team (Late st Contact Info) Description 11/11/2023 8:30 AM EDT Office Visit [facility] [address] [place] [address] Pao Hanley APRN [address] [facility] [address] [place] [address] Amenorrhea (Primary Dx); Women's annual routine gynecological examination Social History Tobacco Use Types Packs/Day Years Used Date Smoking Tobacco: Former Cigarettes Smokeless Tobacco: Never Tobacco Cessation:Counseling Given: Not Answered Alcohol Use Standard Drinks/Week Comments Not Currently 0 (1 standard drink = 0.6 oz pure alcohol) 4-6 wine coolers daily for several years [facility] Utilities Answer Date Recorded In the past 12 months has [facility] [employer], [employer], oil, or water [employer] threatened to shut off services in your home? No 08/05/2023 AUDIT-C Answer Date Recorded Q1: How often do you have a drink containing alcohol? 4 or more times a week 08/02/2023 Q2: How many drinks containi ng alcohol do you have on a typical day when you are drinking? 7 to 9 Q3: How often do you have si x or more drinks on one occasion? Daily or almost daily 08/02/2023 Overall Financial Resource Strain (CARDIA) Answe r Date Recorded How hard is it for you to pa y for the very basics like food, housing, medical care, and heating? Patient declined 08/05/2023 [facility] - Occupational Stress Questionnaire Answer Date Recorded Do you feel stress - tense, restless, nervous, or anxious, or unable to sleep at night because your mind is troubled all the time - these days? Rather much 08/05/2023 Exercise Vital Sign Answer Date Recorde d On average, how many days pe r week do you engage in moderate to strenuous exercise (like a brisk walk)? 0 days 08/05/2023 On average, how many minutes do you engage in exercise at this level? 0 min 08/05/2023 Hunger Vital Sign Answer Date Recorded Within the past 12 months, y ou worried that your food would run out before you got the money to buy more. Never true 08/05/19 24 Within the past 12 months, t he food you bought just didn't last and you didn't have money to get more. Never true 08/05/2023 PRAPARE - Transportation Answer Date Re corded In the past 12 months, has l ack of transportation kept you from medical appointments or from getting medications? No 07/24 In the past 12 months, has l ack of transportation kept you from meetings, work, or from getting things needed for daily living? No 08/05/2023 Abuse Screen Answer Date Recorded Feels Unsafe at Home or Work/School no 08/01/2023 Feels Threatened by Someone no 02/2024 Does Anyone Try to Keep You From Having Contact with Others or Doing Things Outside Your Home? no 08/01/2023 Physical Signs of Abuse Present no 08/01/2023 Housing Stability Answer Date Recorded Current Living Arrangements home 07/24 Potentially Unsafe Housing Conditions none 08/05/2023 Family and Community Support Answer Petr e Recorded If for any reason you need h elp with day-to-day activities such as bathing, preparing meals, shopping, managing finances, etc., do you get the help you need? I don't need any help 08/05/2023 How often do you feel lonely or isolated from those around you? Sometimes 08/05/2023 Employment Answer Date Recorded Do you want help finding or keeping work or a job? I do not need or want help 08/05/2023 Disabilities Answer Date Recorded Difficulty Concentrating, Remembering or Making Decisions no 08/01/2023 Difficulty Managing Errands Independently no 08/01/2023 Education Answer Date Recorded Do you want help with school or training? For example, starting or completing job training or getting a high school diploma, GED or equivalent No 08/05/2023 Preferred Language Central African 08/05/2023 PHQ-2 Answer Date Recorded Retired PHQ-9: Brief Depression Severity Measure Score 2 08/05/2023 Comments No Sex and Gender Information Value Date Recorded Sex Assigned at Not on file Legal Sex Female 10:56 AM EDT Gender Identity Not on file Sexual Orientation Not on file documented as of this encounter Last Filed Vital Signs Vital Sign Reading Time Taken Comments Blood Pressure 110/72 11/11/2023 9:06 AM EDT Pulse - - Temperature - - Respiratory Rate - - Oxygen Saturation - - Inhaled Oxygen Concentration - - Weight 64 kg (141 lb) 11/11/2023 9:06 AM EDT Height 165.1 cm (5' 5 ) 11/11/2023 9:06 AM EDT Body Mass Index 23.46 11/11/2023 9:06 AM EDT documented in this encounter Progress Notes * Pao Hanley, RESIDENT DIRECTOR - 11/11/2023 8:30 AM EDT Images from the original note were not included. Gynecologic Annual Exam Note Annual (New patient ) Subjective HPI Tatiana Wade is a 33 y.o. female who presents for annual well woman exam as a new patient.Patient's last menstrual period was 10/21/2022 (approximate). Her menses are absent. She reports her last LMP x 1 year ago. Patient reports that she has had occasional scant spotting since. She denies dysmenorrhea. Marital Status: . She is sexually active. She has not had new partners.. STD testing recommendations have been explained to the patient and she does desire STD testing. 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 Results: negative. HPV: unknown . Last Completed Pap Smear This patient has no relevant Health Maintenance data. History of abnormal Pap smear: yes - patient reports years ago, h/o HPV Gardasil status: did not complete Family history of uterine, colon, breast, or ovarian cancer: yes - MGM- Ovarian Performs monthly Self-Breast Exam: yes Exercises Regularly:no Feelings of Anxiety or Depression: yes - anxiety Tobacco Usage?: No Current Outpatient Medications: furosemide (LASIX) 40 MG tablet, Take 1 tablet by mouth daily. Indications: Hardening of the Liver,Disp: 30 tablet, Rfl: 0 gabapentin (NEURONTIN) 800 MG tablet, Take 1 tablet by mouth 3 (Three) Times a Day., Disp: , Rfl: spironolactone (ALDACTONE) 50 MG tablet, Take 1 tablet by mouth 2 times a day. Indications: Hardening of the Liver, Disp: 60 tablet, Rfl: 0 Patient denies the need for medication refills today. OB History 5 Para 3 Term 3 AB 2 Living 3 SAB 2 IAB Ectopic Molar Multiple Live Births 3 Health Maintenance Topic Date Due Annual Gynecologic Pelvic and Breast Exam Never done Pneumococcal Vaccine 0-64 (1 of 2 - PCV) Never done Hepatitis B (1 of 3 - 19+ 3-dose series) Never done TDAP/TD VACCINES (1 - Tdap) Never done COVID-19 Vaccine ( - 2022- season) Never done ANNUAL PHYSICAL Never done PAP SMEAR Never done INFLUENZA VACCINE 01/22/2024 HEPATITIS C SCREENING Completed Past 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: Diagnosis Date Alcohol abuse Alcoholism Anxiety Calculus of both kidneys Gallbladder calculus Liver cirrhosis Liver disease Seizures Withdrawal symptoms, alcohol Past Surgical History: Procedure Laterality Date APPENDECTOMY BREAST LUMPECTOMY Right D & C AND LAPAROSCOPY x2 KIDNEY SURGERY Bilateral TONSILLECTOMY The additional following portions of the patient's history were reviewed and updated as appropriate: allergies, current medications, past family history, past medical history, past social history, past surgical history, and problem list. Review of Systems Constitutional: Negative. Respiratory: Negative. Cardiovascular: Negative. Gastrointestinal: Negative. Genitourinary: Positive for menstrual problem (amenorrhea x 1 year). Psychiatric/Behavioral: The patient is nervous/anxious. I have reviewed and agree with the HPI, ROS, and historical information as entered above. Pao Neumann, RESIDENT DIRECTOR Objective BP 110/72 Ht 165.1 cm (65 ) Wt 64 kg (141 lb) LMP 10/21/2022 (Approximate) BMI 23.46 kg/m?? Physical Exam Constitutional: Appearance: Normal appearance. Neck: Thyroid: No thyroid mass or thyromegaly. Pulmonary: Effort: Pulmonary effort is normal. Chest: Chest wall: No mass. Breasts: Right: Normal. No inverted nipple, mass, nipple discharge or skin change. Left: Normal. No inverted nipple, mass, nipple discharge or skin change. Abdominal: General: There is no distension. Palpations: Abdomen is soft. There is no mass. Tenderness: There is no abdominal tenderness. Hernia: No hernia is present. Genitourinary: General: Normal vulva. Labia: Right: No rash. Left: No rash. Vagina: Normal. Cervix: No cervical motion tenderness or lesion. Uterus: Normal. Adnexa: Right adnexa normal and left adnexa normal. Right: No mass or tenderness. Left: No mass or tenderness. Neurological: Mental Status: She is alert. Assessment and Plan Problem List Items Addressed This Visit None Visit Diagnoses Amenorrhea - Primary Relevant Orders Prolactin Testosterone TSH Follicle Stimulating Hormone Estradiol T4, Free HCG, B-subunit, Quantitative US Non-ob Transvaginal Women's annual routine gynecological examination Relevant Orders LIQUID-BASED PAP SMEAR WITH HPV GENOTYPING REGARDLESS OF INTERPRETATION (CARMEN,COR,MAD) Amenorrhea likely related to her end stage liver disease/cirrhosis. Labs today to rule out other etiology. Then will RTO for U/S. Due to liver disease she is not a good candidate for progestins to stimulate menses. AUTISM TUTOR annual well woman exam. Reviewed pap guidelines. Reviewed monthly self breast exams. Instructed to call with lumps, pain, or breast discharge. Return in about 2 weeks (around 11/25/2023) for U/S amenorrhea . Pao Hanley APRN 11/11/2023 documented in this encounter Plan of Treatment Scheduled Orders Name Type Priority Associated Diagnoses Orde r Schedule US Non-ob Transvaginal Imaging Routine Amenorrhea Expected: 11/25/2023 (Approximate), Expires: 11/10/2024 documented as of this encounter Procedures Procedure Name Priority Date/Time Associated Diagnosis Comments LIQUID-BASED PAP SMEAR WITH HPV GENOTYPING REGARDLESS OF INTERPRETATION, [facility] (CARMEN,COR,MAD) Routine 11/11/2023 11:36 AM EDT Women's annual routine gynecological examination documented in this encounter Results * LIQUID-BASED PAP SMEAR WITH HPV GENOTYPING REGARDLESS OF INTERPRETATION (CARMEN,COR,MAD) (11/11/2023 11:36 AM EDT) Reference Lab Report [facility] [address] ?[place], [place] ??[address] or [phone] Cristóbal Calvo M.D., Cnc Mill And Lathe Operator PATIENT NAME ? LABORATORY NO. [id number] ??TATIANA WADE ? [id number] ? AGE ? SEX ??SSN ? CLIENT REF # [facility] ([facility]) ?33 ?1990 ??F ?[id number] ?? [id number] Miguel A DEJESUS ?REQUESTING M.D. ? ATTENDING M.D. ? COPY TO. KARLA, SIVA 11683 ? PAO HANLEY DATE COLLECTED ?DATE RECEIVED ?DATE REPORTED 11/11/2023 ?11/11/2023 ? 11/14/2023 ThinPrep Pap with Cytyc Imaging DIAGNOSIS: Negative for intraepithelial lesion or malignancy Multiple factors can influence accuracy of Pap tests; therefore, screening at regular intervals is necessary for early cancer detection. SPECIMEN ADEQUACY: ??SATISFACTORY FOR EVALUATION Transformation zone is present. SOURCE OF SPECIMEN: ??CERVICAL/ENDOCER VICAL SLIDES: ??1 CLINICAL HISTORY: ??Women's annual routine gynecological examination Amenorrhea HPV HR-HPV POOL: Negative The Aptima HPV assay is an in vitro nucleic acid amplification test for the qualitative detection of E6/E7 viral messenger RNA from 14 high risk types of HPV in cervical specimens. The high risk HPV types detected include: 16, 18, 31, 33, 35, 39, 45, 51, 52, 56, 58, 59, 66, 68 Chlamydia / Gonorrhea CHLAMYDIA TRACHOMATIS: Negative NEISSERIA GONORRHOEAE: Negative The Aptima Combo 2 assay is a target amplification nucleic acid probe test that utilizes target capture for the in vitro qualitative detection and differentiation of ribosomal RNA from Chlamydia trachomatis and Neisseria gonorrhoeae to aid in the diagnosis of chlamydial and gonococcal disease using the [place] system. CONTACT PERSON: ?SDS, CT (ASCP) CPT CODES: ??[id number], [id number], [id number], 64320 11/14/2023 9:54 AM EDT [facility] ThinPrep Vial Cervix uteri structure / Unknown Collection / Unknown 11/11/2023 11:36 AM EDT 11/11/2023 11:36 AM EDT us Pao Falcon Talon RESIDENT DIRECTOR PATHOLOGY/CYTOLOGY ORDERA BLES Final Result [facility]
[address] [place] [address], documented in this encounter Visit Diagnoses Diagnosis Amenorrhea- Primary Absence of menstruation Women's annual routine gynecological examination documented in this encounter Additional Health Concerns Assessment Noted Time PHQ-2 Depression Total Score: 2 08/05/19 24 9:47 AM EST documented as of this encounter Care Teams Shipping And Receiving Relationship Specialty Start Date End Date Kierra Guajardo MD [address] [place] [address] PCP - General Internal Medicine 10/23/23 documented as of this encounter
--- OUTSIDE RECORDS SUMMARY | 2024-05-11 18:29 | XMS_ITS | Encounter Summary ---
Author Organization [facility] Address [facility] [place] [address] Care Team Providers Care Software Development Intern Name Role Phone Yonatan Graves DO Primary Care Provider Farida Ortega MUSIC JOURNALIST Unavailable [phone] Source Comments This information has been disclosed [...] release of HIV test results or diagnoses. [id number] Reason for Visit * Reason Comments Medication Refill Encounter Details Date Type Department Care Team (Late st Contact Info) Description 11/05/2023 Refill [facility] G[facility]enterology at [facility] [address] [facility], [address] [place] [address] Grazyna Velasco MD [address] [place] [address] Alcoholic cirrhosis of liver with ascites ([facility]-HCC) Social History Tobacco Use Types Packs/Day Years [...] encounter Miscellaneous Notes * Telephone Encounter - Leanne Benavides MA - 11/06/2023 8:21 AM EDT Possible duplicate? documented in this encounter Plan of Treatment Not on file documented as of this encounter Visit Diagnoses Diagnosis 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) documented in this encounter Additional Health Concerns Assessment Noted Time PHQ-9 Depression Total Score: 13 024 11:52 AM EDT documented as of this encounter Care Teams Software Development Intern Relationship Specialty Start Date End Date Yonatan Graves DO [address] [place] [address] PCP - General 09/02/23 Farida Ortega, MUSIC JOURNALIST [address] [place] [address] Referring Physician Gastroenterology 09/02/23 documented as of this encounter
--- OUTSIDE RECORDS SUMMARY | 2024-05-11 18:29 | XMS_ITS | Encounter Summary ---
Author Organization [facility] Address [facility] [place] [address] Care Team Providers Care Advanced Manufacturing Consultant Name Role Phone Yonatan Graves DO Primary Care Provider Farida Ortega RNP Unavailable [phone] Source Comments This information has been disclosed [...] release of HIV test results or diagnoses. [id number] [facility] Reason for Visit * Reason Comments Medication Refill Encounter Details Date Type Department Care Team (Late st Contact Info) Description 11/04/2023 Refill [facility] at [facility] [address] [facility], [address] [place] [address] Grazyna Velasco MD [address] [place] [address] Social History Tobacco Use Types Packs/Day Years [...] encounter Miscellaneous Notes * Telephone Encounter - Nadya Jackman MA - 11/05/2023 7:15 AM EDT Possible duplicate. Please review. documented in this encounter Plan of Treatment Not on file documented as of this encounter Visit Diagnoses Not on filedocumented in this encounter Additional Health Concerns Assessment Noted Time PHQ-9 Depression Total Score: 13 024 11:52 AM EDT documented as of this encounter Care Teams Advanced Manufacturing Consultant Relationship Specialty Start Date End Date Yonatan Graves DO [address] [place] [address] PCP - General 09/02/23 Farida Ortega, RNP [address] [place] [address] Referring Physician Gastroenterology 09/02/23 documented as of this encounter
--- OUTSIDE RECORDS SUMMARY | 2024-05-11 18:29 | XMS_ITS | Encounter Summary ---
Author Organization [facility] Address [facility] [place] [address] Care Team Providers Care Blown Film Extrusion Operator Name Role Phone Yonatan Graves DO Primary Care Provider Farida Ortega DISTRIBUTION LINEMAN Unavailable [phone] Source Comments This information has been disclosed [...] release of HIV test results or diagnoses. [id number] Health Reason for Visit * Reason Comments Medication Refill Encounter Details Date Type Department Care Team (Late st Contact Info) Description 11/04/2023 Refill [facility] at [facility] [address] [facility], [address] [place] [address] Grazyna Velasco MD [address] [place] [address] Social History Tobacco Use Types [...] Telephone Encounter - Nadya Jackman MA - 11/04/2023 4:05 PM EDT Possible duplicate. Please review. documented in this encounter Plan of Treatment Not on file documented as of this encounter Visit Diagnoses Not on filedocumented in this encounter Additional Health Concerns Assessment Noted Time PHQ-9 Depression Total Score: 13 024 11:52 AM EDT documented as of this encounter Care Teams Blown Film Extrusion Operator Relationship Specialty Start Date End Date Yonatan Graves DO [address] [place] [address] PCP - General 09/02/23 Farida Ortega, DISTRIBUTION LINEMAN [address] [place] [address] Referring Physician Gastroenterology 09/02/23 documented as of this encounter
--- OUTSIDE RECORDS SUMMARY | 2024-05-11 18:29 | XMS_ITS | Encounter Summary ---
Author Organization [facility] Address [facility] [place] [address] Care Team Providers Care Reducing Salon Attendant Name Role Phone Yonatan Graves DO Primary Care Provider Farida Ortega DYNAMIC BALANCER SET UP WORKER Unavailable [phone] Source Comments This information has been disclosed [...] release of HIV test results or diagnoses. [id number] Encounter Details Date Type Department Care Team (Late st Contact Info) Description 02/16/2024 Telephone [facility] [address] [facility], [address] [place] [phone] Brynn Ghosh RN Social History Tobacco Use Types Packs/Day Years [...] encounter Miscellaneous Notes * Telephone Encounter - Brynn Ghosh RN - 02/16/2024 1:50 PM EDT Spoke with Ms. Wade; she just got home from the hospital ([facility]) in [place]. Her groin veins were causing discomfort. An US was done to examine them-- they found varicose veins and that they appear to be going into the stomach area which MD said was possible. Last ETOH was ; no paracentesis since August. Still jaundice in eyes and skin--thinks it may be a bit better. Shewas told her meld score went from 25 to 13 per ED MD. She is asking about a scope for varices as well; she thinks that her last one was October of 2021. She did not have varices at that time and was not placed on any medication either. Explained that I could not see the lab results or imaging in our system but I would reach out to [facility]. Once they are received and reviewed will call her back with the next steps. documented in this encounter Plan of Treatment Not on file documented as of this encounter Visit Diagnoses Not on filedocumented in this encounter Additional Health Concerns Assessment Noted Time PHQ-9 Depression Total Score: 13 024 11:52 AM EDT documented as of this encounter Care Teams Reducing Salon Attendant Relationship Specialty Start Date End Date Yonatan Graves DO [address] [place] [address] PCP - General 09/02/23 Farida Ortega, HARLEEN [address] [place] [address] Referring Physician Gastroenterology 09/02/23 documented as of this encounter
--- OUTSIDE RECORDS SUMMARY | 2024-05-11 18:29 | XMS_ITS | Encounter Summary ---
Author Organization [facility] Address [address] [place] [address] Care Team Providers Care Plate Put In Worker Name Role Phone Yonatan Graves DO Primary Care Provider Farida Ortega AGRICULTURAL ECONOMICS PROFESSOR Unavailable [phone] Source Comments This information has been disclosed [...] release of HIV test results or diagnoses. [id number] Reason for Referral * Imaging/Cardiovascular Scan (Routine) - Closed Specialty Diagnoses / Procedures Referred By Roselyn mccollum Referred To Contact Radiology Diagnoses Decompensated hepatic cirrhosis (CMS-HCC) Procedures MRI Abdomen W and WO contrast Agustin Hurt MD Referral ID Status Reason Start Date Expiration Date Visits Re quested Visits Authorized [id number] Closed 09/08/2023 03/06/2024 1 1 Reason for Visit * Auth/Cert (Routine) Specialty Diagnoses / Procedures Referred By Roselyn mccollum Referred To Contact Radiology [facility] at [address] [address] Phone: tel: Referral ID Status Reason Start Date Expiration Date Visits Re quested Visits Authorized [id number] 1 1 Encounter Details Date Type Department Care Team (Latest Contact Info) Description 02/04/2024 1:24 PM EDT - 02/04/2024 11:59 PM EDT Hospital Encounter [facility] at [address] [phone] Agustin Hurt MD Decompensated hepatic cirrhosis (CMS-HCC) Discharge Disposition: Home or Self Care WITHOUT Home Care Services Social History Tobacco Use Types Packs/Day Years [...] Sign Reading Time Taken Comments Blood Pressure - - Pulse - - Temperature - - Respiratory Rate - - Oxygen Saturation - - Inhaled Oxygen Concentration - - Weight 61.7 kg (136 lb) 02/04/2024 1:58 PM EDT Height - - Body Mass Index 22.63 01/15/2024 11:08 AM EDT documented in this encounter Medications at Time of Discharge furosemide (LASIX) 20 MG tablet Take 3 tablets (60 mg total) by mouth 2 times a day. 180 tablet 12/11/2023 gabapentin (NEURONTIN) 800 MG tablet Take 1 tablet (800 mg total) by mouth 3 times a day. spironolactone (ALDACTONE) 50 MG tablet Take 3 tablets (150 mg total) by mouth 2 times a day. 150 mg AM and 100 mg PM documented as of this encounter Plan of Treatment Not on file documented as of this encounter Procedures Procedure Name Priority Date/Time Associated Diagnosis Comments MRI ABDOMEN W AND WO CONTRAST Routine 02/04/2024 2:59 PM EDT Decompensated hepatic cirrhosis (CMS-HCC) documented in this encounter Results * MRI Abdomen W and WO contrast (02/04/2024 2:59 PM EDT) Anatomical Region Laterality Modality Abdomen Magnetic Resonan ce 02/04/2024 1:58 PM EDT Impressions 02/04/2024 5:16 PM EDT IMPRESSION: 1. ??Cirrhotic morphology of the liver with sequela of portal hypertension. The previously noted focal lesion on outside MRI is not definitively visualized. Approved by Nilson Osborn MD on 02/04/2024 4:50 PM EDT I have personally reviewed the images and I agree with this report. Report Verified by: Linn Rushing MD at 02/04/2024 5:16 PM EDT Narrative 02/04/2024 5:16 PM EDT EXAM: MRI ABDOMEN W AND WO CONTRAST CLINICAL INDICATION: LR 4 lesion seen; Decompensated hepatic cirrhosis (CMS- HCC); Decompensated hepatic cirrhosis (CMS-HCC) TECHNIQUE: Multisequence, multiplanar MR imaging of the abdomen with and without contrast. ?? CONTRAST: 6 mL of GADOBUTROL 1 MMOL/ML INTRAVENOUS SYRINGE ([facility]) administered intravenously COMPARISON: Outside study dated 08/18/2023 and 04/08/2023 FINDINGS: Lower Chest: No acute abnormality. Liver: Nodular contour with heterogenous appearance of the liver on the arterial sequences. Previously noted arterial enhancing lesion in segment 3 on outside study is not definitively visualized. T1 hyperintense lesion in the right dome not visualized on other sequences. Biliary Tree/Gallbladder: Cholelithiasis. No evidence of biliary ductal dilation. Spleen: Normal. Pancreas: Normal. Adrenal Glands: Normal. Kidneys/Ureter: Bilateral T2 hyperintense cysts with a T1 hyperintense cyst in the superior pole of the right kidney favored to be hemorrhagic/proteinaceous. No hydronephrosis. Gastrointestinal Tract: The visualized portions appear normal. Lymphatics: No suspicious lymphadenopathy. Vasculature: Recanalized umbilical vein. Esophageal varices. Peritoneum/Retroperitoneum: Trace ascites. Abdominal Wall/Soft Tissues: Normal. Osseous Structures: No acute osseous abnormality or suspicious osseous lesions. Procedure Note Linn Rushing MD - 02/04/2024 EXAM: MRI ABDOMEN W AND WO CONTRAST CLINICAL INDICATION: LR 4 lesion seen; Decompensated hepatic cirrhosis(CMS-HCC); Decompensated hepatic cirrhosis (CMS-HCC) TECHNIQUE: Multisequence, multiplanar MR imaging of the abdomen with andwithout contrast. CONTRAST: 6 mL of GADOBUTROL 1 MMOL/ML INTRAVENOUS SYRINGE ([facility])administered intravenously COMPARISON: Outside study dated 08/18/2023 and 04/08/2023 FINDINGS: Lower Chest: No acute abnormality. Liver: Nodular contour with heterogenous appearance of the liver on thearterial sequences. Previously noted arterial enhancing lesion in segment3 on outside study is not definitively visualized. T1 hyperintense lesionin the right dome not visualized on other sequences. Biliary Tree/Gallbladder: Cholelithiasis. No evidence of biliary ductaldilation. Spleen: Normal. Pancreas: Normal. Adrenal Glands: Normal. Kidneys/Ureter: Bilateral T2 hyperintense cysts with a T1 hyperintensecyst in the superior pole of the right kidney favored to behemorrhagic/proteinaceous. No hydronephrosis. Gastrointestinal Tract: The visualized portions appear normal. Lymphatics: No suspicious lymphadenopathy. Vasculature: Recanalized umbilical vein. Esophageal varices. Peritoneum/Retroperitoneum: Trace ascites. Abdominal Wall/Soft Tissues: Normal. Osseous Structures: No acute osseous abnormality or suspicious osseouslesions. IMPRESSION: 1. Cirrhotic morphology of the liver with sequela of portal hypertension.The previously noted focal lesion on outside MRI is not definitivelyvisualized. Approved by Nilson Osborn MD on 02/04/2024 4:50 PM EDT I have personally reviewed the images and I agree with this report. Report Verified by: Linn Rushing MD at 02/04/2024 5:16 PM EDT Agustin Hurt MD IMG MRI ORDERABLES Final Resul t documented in this encounter Visit Diagnoses Diagnosis Decompensated hepatic cirrhosis ([facility]-HCC) documented in this encounter Administered Medications Inactive Administered Medications - up to 3 most recent administrations Medication Order MAR Action Action Date Dose Rate Site gadobutrol (GADAVIST) 1 mmol/1 mL IV syringe 6 mL 6 mL (rounded from 6.17 mL = 0.1 mL/kg ? 61.7 kg), Intravenous, IMG once as needed, contrast, Starting on Fri02/04/24 at 1428, For 1 dose Given 02/04/2024 2:59 PM EDT 6 mLs documented in this encounter Additional Health Concerns Assessment Noted Time PHQ-9 Depression Total Score: 13 024 11:52 AM EDT documented as of this encounter Care Teams Plate Put In Worker Relationship Specialty Start Date End Date Yonatan Graves DO [address] [place] [address] PCP - General 09/02/23 Farida Ortega, HARLEEN [address] [place] [address] Referring Physician Gastroenterology 09/02/23 documented as of this encounter
--- OUTSIDE RECORDS SUMMARY | 2024-05-11 18:29 | XMS_ITS | Clinical Summary ---
Author Organization [facility] Address [address] [place] [address] Care Team Providers Care Insulator Apprentice Name Role Phone Kierra Guajardo MD Primary Care Provide r Allergies Active Allergy Reactions Criticality Noted Date Comments Morphine Other (See Comments),Rash Low 12/08/2017 Penicillins Rash,Unknown (See Comments) Low 015 Medications * This document contains information received from the source organization and may not represent a complete record from that organization. furosemide (LASIX) 40 MG tabletIndicatio ns:Hepatic Cirrhosis Take 1 tablet by mouth daily. Indications: Hardening of the Liver 30 tablet 08/05/2023 10:27 AM EST 4 Active spironolactone (ALDACTONE) 50 MG tabletIndicatio ns:Hepatic Cirrhosis Take 1 tablet by mouth 2 times a day. Indications: Hardening of the Liver 60 tablet 08/05/2023 10:27 AM EST 4 Active gabapentin (NEURONTIN) 800 MG tablet Take 1 tablet by mouth 3 (Three) Times a Day. 4 Active fluconazole (DIFLUCAN) 150 MG tablet Take 1 tablet by mouth As Needed (yeast). Take one tablet now and repeat in 3 days 2 tablet 4 Active Active Problems Problem Noted Date Diagnosed Date Alcohol use disorder, severe, dependence 024 Liver disease 08/05/2023 Hepatitis C 08/05/2023 Hyponatremia 08/05/2023 Chemical dependency 08/01/2023 Family History 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 Relation Name Comments Ovarian cancer Maternal Grandmother Relation Name Status Comments Maternal Grandmother Social History Tobacco Use Types Packs/Day Years Used Date Smoking Tobacco: Former Cigarettes Smokeless Tobacco: Never Tobacco Cessation:Counseling Given: Not Answered Alcohol Use Standard Drinks/Week Comments Not Currently 0 (1 standard drink = 0.6 oz pure alcohol) 4-6 wine coolers daily for several years [facility] Utilities Answer Date Recorded In the past 12 months has e [employer], gas, oil, or water [employer] threatened to shut off services in your [...] medical care, and heating? Patient declined 08/05/2023 [facility] - Occupational [...] GED or equivalent No 08/05/2023 Preferred Language Monegasque 08/05/2023 PHQ-2 Answer Date Recorded Retired PHQ-9: Brief Depression Severity Measure Score 2 08/05/2023 Comments No Sex and Gender Information Value Date Recorded Sex Assigned at Not on file Legal Sex Female 10:56 AM EDT Gender Identity Not on file Sexual Orientation Not on file Last Filed Vital Signs Vital Sign Reading Time Taken Comments Blood Pressure 110/72 11/11/2023 9:06 AM EDT Pulse 93 08/05/2023 8:02 AM EST Temperature 37 ??C (98.6 ??F) 08/05/2023 8:02 AM EST Respiratory Rate 18 08/05/2023 8:02 AM EST Oxygen Saturation 96% 08/05/2023 8:02 AM EST Inhaled Oxygen Concentration - - Weight 64 kg (141 lb) 11/11/2023 9:06 AM EDT Height 165.1 cm (5' 5 ) 11/11/2023 9:06 AM EDT Body Mass Index 23.46 11/11/2023 9:06 AM EDT Plan of Treatment Health Maintenance Due Date Last Done Comments Pneumococcal Vaccine 0-64 (1 of 2 - PCV) 01/26/1996 Hepatitis B (1 of 3 - 19+ 3- dose series) 2009 TDAP/TD VACCINES (1 - Tdap) 2009 ANNUAL PHYSICAL 11/11/2023 INFLUENZA VACCINE 01/22/2024 04/19/2010 COVID-19 Vaccine (1 - 2023-2 5 season) 2024 Annual Gynecologic Pelvic an d Breast Exam 11/11/2024 11/11/2023 PAP SMEAR 11/10/2026 11/11/2023 HEPATITIS C SCREENING Completed 09/08/2023 , 09/01/2023, 09/01/2023, Additional history exists Procedures Procedure Name Priority Date/Time Associated Diagnosis Comments LIQUID-BASED PAP SMEAR WITH HPV GENOTYPING REGARDLESS OF INTERPRETATION, [facility] ([facility]) Routine 11/11/2023 11:36 AM EDT Women's annual routine gynecological examination HEPATITIS PANEL, ACUTE Routine 08/02/2023 4:57 AM EST from Last 3 Months or Most Recently Relevant to Health Maintenance Results * LIQUID-BASED PAP SMEAR WITH HPV GENOTYPING REGARDLESS OF INTERPRETATION ([facility]) (11/11/2023 11:36 AM EDT) Reference Lab Report [facility] [address] ?[place], [place] ??[address] or [phone] Cristóbal Calvo M.D., Mortuary Operations Manager PATIENT NAME ? LABORATORY NO. [id number] ??TATIANA WADE ? [id number] ? AGE ? SEX ??SSN ? CLIENT REF # [facility] ([facility]) ?33 ?1990 ??F ?[id number] ?? [id number] Miguel A DEJESUS ?REQUESTING M.D. ? ATTENDING M.D. ? COPY TO. KARLA, SIVA [address]37 ? [place] DATE COLLECTED ?DATE RECEIVED ?DATE REPORTED 11/11/2023 [...] of chlamydial and gonococcal disease using the [facility] system. DOCKING SAW OPERATOR: ?SDS, CT (ASCP) CPT CODES: ??65340, [id number], [id number], 53729 11/14/2023 9:54 AM EDT [facility] ThinPrep Vial Cervix uteri structure / Unknown Collection / Unknown 11/11/2023 11:36 AM EDT 11/11/2023 11:36 AM EDT Pao Falcon Talon EXPANDED DUTY DENTAL ASSISTANT PATHOLOGY/CYTOLOGY ORDERA BLES Final Result [facility]
[address] [place] [address], [place] [phone] * (ABNORMAL) Hepatitis Panel, Acute (08/02/2023 4:57 AM EST) Hepatitis B Surface Ag Non-Reacti ve Non-Reacti ve 08/02/2023 6:38 AM EST [facility] Hep A IgM Non-Reacti ve Non-Reacti ve 08/02/2023 6:38 AM EST [facility] Hep B C IgM Non-Reacti ve Non-Reacti ve 08/02/2023 6:38 AM EST [facility] Hepatitis C Ab Reactive(A ) Non-Reacti ve 08/02/2023 6:38 AM EST [facility] Blood Venipuncture / Unknown 08/02/2023 4:57 AM EST 08/02/2023 5:15 AM EST [facility] - 08/02/2023 6:38 AM EST Results may be falsely decreased if patient taking Biotin. Jasmin Crooks MD LAB BLOOD ORDERABLES Final Result [facility]
[address] [place] [address], [place] [phone] from Last 3 Months or Most Recently Relevant to Health Maintenance Insurance 1956 [address] [id number] [facility] PLAN OF ID Advance Directives * CPR (Attempt to Resuscitate) (Latest Code Status on File) Date Activated Date Inactivated Comments 08/01/2023 11:18 PM 08/05/2023 4:05 PM Question Answer Comments Code Status (Patient has no pulse and is not breathing): CPR (Attempt to Resuscitate) Medical Interventions (Patie nt has pulse or is breathing): Full Support Care Teams Insulator Apprentice Relationship Specialty Start Date End Date Kierra Guajardo MD [address] [place] [address] PCP - General Internal Medicine 10/23/23
--- OUTSIDE RECORDS SUMMARY | 2024-05-11 18:29 | XMS_ITS | Encounter Summary ---
Author Organization [facility] Address [address] [place] [address] Care Team Providers Care Honing Machine Set Up Operator Tool Name Role Phone Yonatan Graves DO Primary Care Provider Farida Ortega JUKEBOX OPERATOR Unavailable [phone] Source Comments This information has been disclosed [...] release of HIV test results or diagnoses. [id number] Encounter Details Date Type Department Care Team (Late st Contact Info) Description 02/05/2024 Telephone [facility] [address] [place] [address] Mario Ramirez MD [address] [facility] [place] [place] [id number] Social History Tobacco Use Types Packs/Day Years [...] encounter Miscellaneous Notes * Telephone Encounter - Mario Ramirez MD - 02/05/2024 7:08 AM EDT Her MRI with no lesions. Trace ascites. Sodium is worse on current diuretics. Per Dr. Hurt's note- current diuretics include - lasix 60/40, aldactone 150/100. Plan: Decrease diuretics due to hyponatremia - lasix 40 mg BID, aldactone 100 mg BID. 2. Repeat renal panel in 1-2 days - Friday or Friday with change documented in this encounter Plan of Treatment Not on file documented as of this encounter Visit Diagnoses Not on filedocumented in this encounter Additional Health Concerns Assessment Noted Time PHQ-9 Depression Total Score: 13 024 11:52 AM EDT documented as of this encounter Care Teams Honing Machine Set Up Operator Tool Relationship Specialty Start Date End Date Yonatan Graves DO [address] [place] [address] PCP - General 09/02/23 Farida Ortega, HARLEEN [address] [place] [phone] Referring Physician Gastroenterology 09/02/23 documented as of this encounter
--- OUTSIDE RECORDS SUMMARY | 2024-05-11 18:29 | XMS_ITS | Encounter Summary ---
Author Organization Address [facility] [place] [address] Care Team Providers Care Health Record Technician Name Role Phone Yonatan Graves DO Primary Care Provider Farida Ortega EARLY CHILDHOOD ASSOCIATE Unavailable [phone] Source Comments This information has been disclosed [...] release of HIV test results or diagnoses. [id number] Reason for Visit * Reason Comments Advice Only PT seeks scheduling/discussion of results. Encounter Details Date Type Department Care Team (Late st Contact Info) Description 02/04/2024 Telephone [facility] Office [address] [place] [address], [address] [place] [phone] Agustin Hurt MD Advice Only ( PT seeks 02/03 scheduling/discussion of results. ) Social History Tobacco Use Types Packs/Day Years [...] encounter Miscellaneous Notes * Telephone Encounter - Magdalene Casper RN - 02/04/2024 11:14 AM EDT Contacted pt via phone call and informed her there are no appointments available today but would request labs and records from last D visit. Once received will send over for Dr. Ramirez advisement onnext steps. Pt not complaining of any symptoms at this time and RN stated she will call pt back once records were reviewed. Records requested. * Telephone Encounter - Franck Coronado - 02/04/2024 10:51 AM EDT The patient established with Dr. Hurt requests a Same-Day appointment for 02/03 as she will be traveling from [place] for an MRI at 1:30p. She states that she was recently seen in the ER and her liver numbers were double and triple. Discussed current first [employer] openings next Friday, which would not help with her travel situation. She asks for someone to call her to review the results sent over from the hospital. documented in this encounter Plan of Treatment Not on file documented as of this encounter Visit Diagnoses Not on filedocumented in this encounter Additional Health Concerns Assessment Noted Time PHQ-9 Depression Total Score: 13 09/24/ 024 11:52 AM EDT documented as of this encounter Care Teams Health Record Technician Relationship Specialty Start Date End Date Yonatan Graves DO [address] [place] [address] PCP - General 09/02/23 Farida Ortega NP [address] [place] [address] Referring Physician Gastroenterology 09/02/23 documented as of this encounter
--- OUTSIDE RECORDS SUMMARY | 2024-05-11 18:29 | XMS_ITS | Encounter Summary ---
Author Organization [facility] Address [facility] [place] [address] Care Team Providers Care Client Finance Analyst Name Role Phone Yonatan Graves DO Primary Care Provider Farida Ortega FACULTY NEUROPSYCHOLOGIST Unavailable [phone] Source Comments This information has been disclosed [...] release of HIV test results or diagnoses. [id number] Reason for Visit * Reason Comments Alcoholic cirrhosis of liver with ascite s Encounter Details Date Type Department Care Team (Latest Contact Info) Description 01/15/2024 11:00 AM EDT Office Visit [facility] [address] [facility], [address] [place] [phone] Agustin Hurt MD 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; Decompensated hepatic cirrhosis (CMS-HCC) Social History Tobacco Use Types Packs/Day [...] Pulse 91 01/15/2024 11:08 AM EDT Temperature - - Respiratory Rate - - Oxygen Saturation 100% 01/15/2024 11:08 AM EDT Inhaled Oxygen Concentration 100% 01/15/2024 1 1:08 AM EDT Weight 61.7 kg (136 lb) 01/15/2024 11:08 AM EDT Height 165.1 cm (5' 5 ) 01/15/2024 11:08 AM EDT Body Mass Index 22.63 01/15/2024 11:08 AM EDT documented in this encounter Patient Instructions * Patient Instructions* Agustin Hurt MD - 01/15/2024 11:00 AM EDT Labs before next visit Decrease lasix to 60 mg (3 tabs) in AM and 40 mg (2 tabs) in PM Continue spironolactone 150 mg (3 tabs) in AM and 100 mg ( 2 tabs) in PM Please let me know how the ascites is doing next week and we can reduce it further MRI LETTY Return to clinic in 2-3 months with MD documented in this encounter Progress Notes * Agustin Hurt MD - 01/15/2024 11:00 AM EDT Hepatology Clinic Note Name: Mindy Wade CSN: [id number] Referring Physician: Hilda Shepherd MD Chief Complaint: Decompensated cirrhosis due to alcohol and hepatitis C History of Present Illness: Mindy Wade is a 33 y.o. 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 She contracted hepatitis C from prior IV drug use with last use in 2017. Is unclear as to how long she had chronic hepatitis C before she was treated. She states that sheintended rehabilitation and was on Suboxone. She was doing well up until July 2022 when she started to feel more fatigued and developed nausea and ultimately developed jaundice. Because of this she sought medical attention and was diagnosed with liver disease. She then saw [facility] transplant center in October 2022 for transplant evaluation where she reported to continuing to drink alcohol 4-5 drinks a week even though she knew she was not supposed to drink any alcohol with the recent worsening of her liver function, cirrhosis and ascites. She was referred by her general surgeonto given potential need for liver transplant and she was being considered for cholecystectomy for biliary colic type of pain. Her transplant evaluation was deferred due to active alcohol with plans for her to follow-up with social work. Patient was evaluated by transplant medical social worker at in December 2022, where it was felt that there was a discrepancy with how much alcohol the patient was reporting compared to the Peth test. The patient initially reported drinking 4 to 5 glasses of wine weekly, 1 drink in December 2022 with Peth in October 2022 of 1162/629. Peth 12/27/22 was higher, 1299/755, suggesting discrepancy in reported alcohol use and lab supported use. She unfortunately continued drinkinguntil Jul 2023 and then underwent detox at [facility] The patient states that she used to only socially drink alcohol and alcohol use started maybe 5 years ago. She said over the time she started to increase her alcohol intake up to 6 wine coolers a day. From the social work at [facility] it was felt that the patient needed alcohol rehabilitation but the patient initially did not feel that she had a problem with alcohol nor did her therefore she was not deemed a candidate for transplant at . When asked the patient today aboutthe cause of her liver disease she states that it was due to autoimmune and possibly alcohol use. She tells me today that she was underreporting her alcohol she was using and due to concern that she might have withdrawal she had difficulty stopping alcohol. She says towards the end she was using alcohol to help manage her anxiety. She is now followed by Dr. Guajardo for management of her depression and anxiety. Today on interview the patient and the do admit to me that the cause of her issues was related to alcohol. I did tell the patient and her that this is committing to a lifetime of sobriety. She feels that her issues with anxiety and depression are improved from before.The patient was found to have ascites many months ago but at the outside hospital it was felt that she was difficult patient for paracentesis. She underwent a paracentesis here at just as a diagnostic paracentesis with fluid studies consistent with portal hypertension. The patient was supposed to take Lasix 60 mg daily and Aldactone 150 mg daily but due to significant worsening in her issues related to lower extremity edema and ascites patient doubled the dosages and those medicines twice a day. She states that since taking it twice a day her issues with her lower extremity edema have resolved and her abdominal distention is much improved. She was also drinking Gatorade during this time but she has stopped doing that as well as she relates a lot of sodium in that. The patient and her do most of the cooking at home and avoid putting salt into anything. She does use CBD Gummiesto help with her abdominal pain occasionally. The patient is overdue for a Pap smear. She had workup for chronic liver disease which was negative other than mildly positive IgG at 2500. I do not see an alpha 1 antitrypsin or iron studies checked. She is immune to hepatitis A but not immune to hepatitis B. She initially had an MRI in December 2022 which showed a 1 cm LI-RADS 3 lesion and a 6 mm Li-RADS 3 lesion within the liver. She had a repeat MRI done in March 2023 which showed stable size of those 2 lesions. She then had another MRI done in July 2023 which showed that the previously described 1 cm LI-RADS 3 lesion in segment 3 was less conspicuous on the current exam however was more solid-appearing on arterial enhancement and it was unclear if this was a LI-RADS 3 or LI-RADS 4 lesion and the previously seen segment two 5 mm lateral 3 lesion was not seen on the study in July 2023. EGD 10/2022: no EV or GV. Mild to moderate PHG Interval History She saw our transplant medical social worker and it was recommended that she demonstrate 1 year of sobrietydue to polysubstance abuse history and continue chemical dependency treatment. She has been taking Aldactone 150 mg twice daily and Lasix 60 mg twice daily. She states that she does not think she hasany issues with ascites but at times feels bloated. She is not sure if the bloating is related to fluid reaccumulation versus a bowel issue. She continues to be sober from alcohol. She had labs done locally on December 28 which showed a sodium of 131 and normal creatinine, bilirubin of 3.2 potassium of 4.5. She is still feels tired and weak. She is having cramping in her hands. She tried to get the MRI scheduled locally after the orders were faxed over there but never heard back from the hospitals locally. The following portions of the patient's history were reviewed and updated as appropriate: allergies, current medications, past family history, past medical history, past social history, past surgicalhistory and problem list. Past 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 Past 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: Diagnosis Date Abdominal hernia 02/21/2023 Alcoholic hepatitis Anxiety Ascites Chronic diarrhea 08/21/2022 Cirrhosis (CMS-HCC) Cystitis Depression Hepatitis C Past Surgical History Past Surgical History: Procedure Laterality Date APPENDECTOMY CYST REMOVAL Right had a cystic lesion under right breast with hematoma and cyst per patient which was removed UPPER GASTROINTESTINAL ENDOSCOPY 09/21/2022 Family History Family History Problem Relation Age of Onset Liver disease Father Cirrhosis Father Social History Social History Tobacco Use Smoking status: Former Current packs/day: 0.00 Average packs/day: 0.3 packs/day for 1 year (0.3 ttl pk-yrs) Types: Cigarettes Start date: 07/22/2014 Quit date: 07/22/2015 Years since quittin.4 Smokeless tobacco: Never Substance Use Topics Alcohol use: Not Currently Medications Current Medications as of 01/15/2024 11:01 AM Outpatient Medications Quantity Refills Start End furosemide (LASIX) 20 MG tablet 180 tablet 0 12/11/2023 -- furosemide (LASIX) 20 MG tablet 540 tablet 1 12/11/2023 12/05/2024 spironolactone (ALDACTONE) 100 MG tablet 180 tablet 1 11/05/2023 -- spironolactone (ALDACTONE) 50 MG tablet 90 tablet 1 11/05/2023 -- Allergies Allergies Allergen Reactions Amoxicillin Rash Morphine Rash Penicillins Rash Vitals: Vitals: 01/15/24 1108 BP: 101/59 Pulse: 91 SpO2: 100% Physical Exam Gen: Well-developed, well nourished. No acute distress. HEENT: Mucous membranes pink/moist. + scleral icterus. Neck: Neck is supple. No tracheal deviation. No cervical lymphadenopathy. CV: Regular rate and rhythm. Normal S1 and S2. No murmurs/rubs/gallops. Lungs: Clear to auscultation bilaterally. No wheezes/rales/rhonchi. No respiratory distress. Abdomen: Soft, non-tender, non-distended stomach no hepatosplenomegaly or palpable masses. Bowel sounds present. No ascites present. No rebound or guarding present. Extremities: No bilateral lower extremity edema. No clubbing or cyanosis present. Skin: No bruising or rash noted. + spider angiomata + palmar erythema. Neuro: Alert and oriented to person, place, and time. CN 2-12 grossly intact. No gross motor defecits. No asterixis Psych: Normal mood and affect. Normal speech and behavior. Laboratory: Lab Results Component Value Date WBC 4.8 10/23/2023 HGB 11.4 (L) 10/23/2023 HCT 32.0 (L) 10/23/2023 MCV 107.2 (H) 10/23/2023 PLT 98 (L) 10/23/2023 Lab Results Component Value Date NA 132 (L) 10/23/2023 K 4.0 10/23/2023 CL 97 (L) 10/23/2023 CO2 27 10/23/2023 BUN 10 10/23/2023 CREATININE 0.88 10/23/2023 GLUCOSE 91 10/23/2023 CALCIUM 9.0 10/23/2023 PHOS 4.1 10/23/2023 Lab Results Component Value Date AST 53 (H) 10/23/2023 ALT 45 10/23/2023 BILITOT 3.6 (H) 10/23/2023 BILIDIRECT 1.40 (H) 10/23/2023 PROT 7.2 10/23/2023 ALBUMIN 3.4 (L) 10/23/2023 ALBUMIN 3.4 (L) 10/23/2023 ALKPHOS 136 (H) 10/23/2023 Lab Results Component Value Date INR 1.4 (H) 10/23/2023 No results found for: HAV , HEPAIGM , HEPBIGM , HEPBCAB , HBEAG , HEPCAB No results found for: BLUE No results found for: SMOOTHMUSCAB No results found for: IRON , TIBC , FERRITIN No results found for: OCCULTBLD No results found for: AFP No results found for: CEA No results found for: CA125 No results found for this or any previous visit (from the past 2079 hour(s)). Assessment/Plan: MELD 3.0: 19 at 10/23/2023 11:33 AM Calculated from: Serum Creatinine: 0.88 mg/dL (Using min of 1 mg/dL) at 10/23/2023 11:33 AM Serum Sodium: 132 mmol/L at 10/23/2023 11:33 AM Total Bilirubin: 3.6 mg/dL at 10/23/2023 11:33 AM Serum Albumin: 3.4 g/dL at 10/23/2023 11:33 AM INR(ratio): 1.4 at 10/23/2023 11:33 AM Age at listing (hypothetical): 33 years Sex: Female at 10/23/2023 11:33 AM Mindy Wade is an 33 y.o. 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 She achieved SVR. Per patient she had a history of alcohol use for the last 5 years or so drinking about 6 wine coolers. She states that over time she increased her alcohol intake. She states that her alcohol usage was initially social but after her diagnosis of liver disease the reason thatshe kept drinking was she was scared of the withdrawal symptoms and initially did not think that alcohol was contributing to her issues. Today the patient does tell me that her alcohol use was a contributor in her liver disease. Her PETH have been positive since last year along with a positive serum alcohol level in July 2023 after which she intended a detoxification program. She states that she has been sober since July 2023. She is following up with Dr. Guajardo to help with management of her anxiety and depression - Chronic HCV: Status posttreatment with Sarah in 2018 with SVR. - Ascites: Patient was counseled on adhering to a 2g low sodium diet. She has been on lasix 60 mg BID and aldactone 150 mg BID. Her fluid studies are consistent with portal hypertension. Patient doesnot have any evidence of ascites on exam today and it is very possible that the intermittent bloating she is having is due to a bowel reason. She is having some cramping in her hands related to the diuretics. Encouraged use of tolerating as needed. We will decrease Lasix to 60 mg in the morning and40 mg in the evening. Will also decrease spironolactone 150 mg morning and 100 mg in the evening. We will be reducing it slowly as the patient is worried that she will have recurrence of ascites difficult to quickly. I have asked her to reach out to us next week to see how the ascites is doing and if she is stable then we will plan to reduce diuretics even further. - Hepatic Encephalopathy: No issues with overt confusion. The does state that she is a little bit more forgetful and has poor issues with sleep. Will monitor closely. - Varices: Never bled. Last EGD in October 2022 with no esophageal varices. Due for repeat EGD in October 2023. The patient will get this scheduled locally. - HCC: Continue surveillance with MRI and AFP the patient has had 2 LR 3 lesions on MRI in segment 3 and 2. These lesions are 6 mm to 1 cm. On the last imaging in July 2023 it was felt that one of the lesions was more solid in nature and could be possible LR 4. I reviewed this at our hepatobiliary conference and this lesion could not be seen. We will repeat a scan in October 2023. The patient is overdue for this. She will try to get this scheduled here at [facility] - Immunizations: Immune to Hepatitis A . Will offer vaccination to hepatitis B next time but she has previously declined - CRC screening/surveillance: Due at age 45 - Nutrition/Sarcopenia: Patient was encouraged to eat a diet high in protein. Asked to perform weight bearing exercises as tolerated. - Transplant Candidacy: The patiently he certainly has psychosocial barriers at this point to undergo transplant workup as she was minimizing the amount of her alcohol use and continued to drink despite knowing about her liver disease in the last year. I would refer to social work note at for further details. Her PeTHs have been extremely high. Based on the evaluation from transplant medical social worker at it was felt that the patient did not have insight into her alcohol use and her and her did not feel that alcohol contributed to her liver disease. Today, they tell me that alcohol was a factor in the development of her liver disease and they are committed to sobriety. They will continue to follow- up with Dr. Guajardo for management of anxiety and depression. I hope that with sobriety from alcohol the patient's MELD score and decompensations should start to improve. If despite sobriety, the patient's MELD score and decompensations do not improve then we could consider transplant as a backup option if the patient is found to be a transplant candidate based on the psychosocial evaluation. She was seen by our transplant medical social worker here at and patient needed to demonstrate 1 year of sobriety which would be July 2024. Her bilirubin has improved with sobriety from 7down to 3. RTC in 2-3 mos This note was completely edited, written and reviewed by me and consists of information cut and pasted from the my most recent visit, my smart phrases and other Epic tools. I have personally reviewedall aspects of this note to at least include reviewing this patient's chart and problem list, updating the history, physical exam, lab and procedure results, and assessment and plan as detailed aboveand below. As such this visit note reflects my current evaluation and management for this patient. Please see the body of my note for supportive documentation related to the level of service for this complex medical patient. I have reviewed all prior notes. I have reviewed interval / recent lab work including: CBC, renal, hepatic, INR, viral studies, and all other labs for chronic liver disease relating to their medical condition. I have independently reviewed the patients recent radiologic imaging including any CT scans, MRI, ultrasound or endoscopic procedures. Finally, I have reviewed independently any interval GI and liver pathology. Agustin Hurt MD Transplant Hepatology [phone] (p) documented in this encounter Plan of Treatment Not on file documented as of this encounter Results * Phosphatidylethanol Confirmation, B (02/04/2024 4:00 PM EDT) Pathologist [facility] 16:0/18.1 (POPETH) <10 Cutoff: 10 ng/mL 02/07/2024 11:19 AM EDT [facility] Comment: Phosphatidylethanol (PEth) homologues result interpretation [...] Cutoff: 10 ng/mL 02/07/2024 11:19 AM EDT [facility] Comment: PEth 16:0/18:2 (PLPEth) Reference ranges are not well established PEth Interpretation Negative. 02/06 11:19 AM EDT [facility] Comment: ADDITIONAL INFORMATION This report is intended for use in clinical monitoring and management of patients. ??It is not intended for use in employment-related testing. This test was developed and its performance characteristics determined by [facility] in a manner consistent with CLIA requirements. This test has not been cleared or approved by the U.S. Food and Drug Administration. Test Performed by: [facility] [place] [address] Beamer Helper: Alexia David Ph.D.; CLIA# [id number] Whole Blood 02/04/2024 4:00 PM EDT 02/07/2024 11:19 AM EDT us Agustin Hurt MD LAB BLOOD ORDERABLES Final Res ult [facility] [address] [place] [address], [facility] * AFP tumor marker (02/04/2024 4:00 PM EDT) Pathologist [facility] AFP-Tumor Marker 8.7 0.0 - 9.0 ng/mL 02/04/2024 5:45 PM EDT [facility] Serum 02/04/2024 4:00 PM EDT 02/04/2024 5:13 PM EDT Narrative [facility] - 02/04/2024 5:45 PM EDT The testing method for AFP is a chemiluminescent immunoassay manufactured by [employer] Concentrations of AFP obtained by different assay methods or kits may vary and cannot be used interchangeably. AFP results cannot be interpreted as absolute evidence of the presence or absence of malignant disease. us Agustin Hurt MD LAB BLOOD ORDERABLES Final Res ult [facility] [address] [facility] [place] [address], [facility] * (ABNORMAL) Renal Function Panel w/EGFR (02/04/2024 4:00 PM EDT) Pathologist [facility] Sodium 125(L) 133 - 146 mmol/L 02/04/2024 5:44 PM EDT [facility] Potassium 4.2 3.5 - 5.3 mmol/L 02/04/2024 5:44 PM EDT [facility] Chloride 94(L) 98 - 110 mmol/L 02/04/2024 5:44 PM EDT [facility] CO2 22 21 - 33 mmol/L 02/04/2024 5:44 PM EDT [facility] Anion Gap 9 3 - 16 mmol/L 02/04/2024 5:44 PM EDT [facility] BUN 14 7 - 25 mg/dL 02/04/2024 5:44 PM EDT [facility] Creatinine 0.95 0.60 - 1.30 mg/dL 02/04/2024 5:44 PM EDT [facility] Glucose 127(H) 70 - 100 mg/dL 02/04/2024 5:44 PM EDT [facility] Calcium 8.7 8.6 - 10.3 mg/dL 02/04/2024 5:44 PM EDT [facility] Phosphorus 3.4 2.1 - 4.7 mg/dL 02/04/2024 5:44 PM EDT [facility] Albumin 3.4(L) 3.5 - 5.7 g/dL 02/04/2024 5:44 PM EDT [facility] Osmolality, Calculated 262(L) 278 - 305 mOsm/kg 02/04/2024 5:44 PM EDT [facility] EGFR 81 02/04/2024 5:44 PM EDT [facility] Comment:As of 2021, the estimated [...] Hernandez M, Chato DC, Suzy ND, Jyoti GARDUNO, Nas LA, et al. A Unifying Approach for GFR Estimation: Recommendations of the NKF-ASN Task Force on Reassessing the inclusion of Race in Diagnosing Kidney Disease. Am J Kidney Dis. 2020. Plasma 02/04/2024 4:00 PM EDT 02/04/2024 5:15 PM EDT us Agustin Hurt MD LAB BLOOD ORDERABLES Final Res ult [facility] [address] [address] * (ABNORMAL) Hepatic Function Panel (02/04/2024 4:00 PM EDT) Total Bilirubin 6.3(H) 0.0 - 1.5 mg/dL 02/04/2024 5:44 PM EDT [facility] Bilirubin, Direct 3.04(H) 0.00 - 0.40 mg/dL 02/04/2024 5:44 PM EDT [facility] AST 93(H) 13 - 39 U/L 02/04/2024 5:44 PM EDT [facility] ALT 83(H) 7 - 52 U/L 02/04/2024 5:44 PM EDT [facility] Alkaline Phosphatase 198(H) 36 - 125 U/L 02/04/2024 5:44 PM EDT [facility] Total Protein 6.8 6.4 - 8.9 g/dL 02/04/2024 5:44 PM EDT [facility] Albumin 3.4(L) 3.5 - 5.7 g/dL 02/04/2024 5:44 PM EDT [facility] Bilirubin, Indirect 3.26(H) 0.00 - 1.10 mg/dL 02/04/2024 5:44 PM EDT [facility] Plasma 02/04/2024 4:00 PM EDT 02/04/2024 5:15 PM EDT us Agustin Hurt MD LAB BLOOD ORDERABLES Final Res ult [facility] [address] * (ABNORMAL) Protime-INR (02/04/2024 4:00 PM EDT) Protime 17.2(H) 12.1 - 15.1 seconds 02/04/2024 5:41 PM EDT [facility] INR 1.3(H) 0.9 - 1.1 02/04/2024 5:41 PM EDT [facility] Comment: RECOMMENDED THERAPEUTIC RANGES USING INR : ?Stable oral anticoagulant therapy: ? 2.0 - 3.0 ?Mechanical prosthetic heart valve: ? 2.5 - 3.5 ?Recurrent acute myocardial infarction: ? 2.5 - 3.5 Plasma 02/04/2024 4:00 PM EDT 02/04/2024 5:13 PM EDT us Agustin Hurt MD LAB BLOOD ORDERABLES Final Res ult [facility] [address] * (ABNORMAL) CBC (02/04/2024 4:00 PM EDT) WBC 6.1 3.8 - 10.8 10E3/uL 02/04/2024 5:24 PM EDT [facility] RBC 2.86(L) 3.80 - 5.10 10E6/uL 02/04/2024 5:24 PM EDT [facility] Hemoglobin 10.6(L) 11.7 - 15.5 g/dL 02/04/2024 5:24 PM EDT [facility] Hematocrit 29.7(L) 35.0 - 45.0 % 02/04/2024 5:24 PM EDT [facility] MCV 103.9(H) 80.0 - 100.0 fL 02/04/2024 5:24 PM EDT [facility] MCH 37.1(H) 27.0 - 33.0 pg 02/04/2024 5:24 PM EDT [facility] MCHC 35.8 32.0 - 36.0 g/dL 02/04/2024 5:24 PM EDT [facility] RDW 15.3(H) 11.0 - 15.0 % 02/04/2024 5:24 PM EDT [facility] Platelets 93(L) 140 - 400 10E3/uL 02/04/2024 5:24 PM EDT [facility] MPV 9.3 7.5 - 11.5 fL 02/04/2024 5:24 PM EDT [facility] Whole Blood 02/04/2024 4:00 PM EDT 02/04/2024 5:14 PM EDT us Agustin Hurt MD LAB BLOOD ORDERABLES Final Res ult [facility] [address] documented in this encounter Visit Diagnoses Diagnosis 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)- Primary Decompensated hepatic cirrhosis (CMS-HCC) Decompensated hepatic cirrhosis (CMS-HCC) 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) documented in this encounter Additional Health Concerns Assessment Noted Time PHQ-9 Depression Total Score: 13 09/24/ 024 11:52 AM EDT documented as of this encounter Care Teams Client Finance Analyst Relationship Specialty Start Date End Date Yonatan Graves DO [address] [place] [address] PCP - General 09/02/23 Farida Ortega, FACULTY NEUROPSYCHOLOGIST [address] [place] [address] Referring Physician Gastroenterology 09/02/23 documented as of this encounter
--- OUTSIDE RECORDS SUMMARY | 2024-05-11 18:29 | XMS_ITS | Encounter Summary ---
Author Organization [facility] Address [facility] [place] [address] Care Team Providers Care Data Developer Name Role Phone Yonatan Graves DO Primary Care Provider Farida Ortega ECONOMIC DEVELOPMENT DIRECTOR Unavailable [phone] Source Comments This information has been disclosed [...] release of HIV test results or diagnoses. [id number] Health Reason for Visit * Reason Comments Orders Fax Order Encounter Details Date Type Department Care Team (Late st Contact Info) Description 12/23/2023 Telephone [facility] G[facility]enterology at [facility] [address] [facility] [place] [address] Agustin Hurt MD Orders (Fax Order/) Social History Tobacco Use Types Packs/Day Years [...] Telephone Encounter - Magdalene Casper RN - 12/23/2023 2:55 PM EDT MRI orders faxed and pt rescheduled for sooner appointment with Dr. Hurt. * Telephone Encounter - Noelle Jarquin MA - 12/23/2023 1:52 PM EDT Fax number [phone] Please fax over pt's MRI order. Thank you. documented in this encounter Plan of Treatment Not on file documented as of this encounter Visit Diagnoses Not on filedocumented in this encounter Additional Health Concerns Assessment Noted Time PHQ-9 Depression Total Score: 13 024 11:52 AM EDT documented as of this encounter Care Teams Data Developer Relationship Specialty Start Date End Date Yonatan Graves DO [address] [place] [address] PCP - General 09/02/23 Farida Ortega, ECONOMIC DEVELOPMENT DIRECTOR [address] [place] [address] Referring Physician Gastroenterology 09/02/23 documented as of this encounter
--- OUTSIDE RECORDS SUMMARY | 2024-05-11 18:29 | XMS_ITS | Encounter Summary ---
Author Organization [facility] Address [facility] [place] [address] Care Team Providers Care Fishing Gear Mechanic Name Role Phone Yonatan Graves DO Primary Care Provider Farida Ortega RELAY TELEGRAPHER Unavailable [phone] Source Comments This information has been disclosed [...] release of HIV test results or diagnoses. [id number] Health Reason for Visit * Reason Onset Date Comments Medication Refill 12/10/2023 Encounter Details Date Type Department Care Team (Late st Contact Info) Description 12/10/2023 Refill [facility] G[facility]enterology at [facility] [address] [place] [address] Grazyna Velasco MD [address] [place] [address] Social History Tobacco Use Types [...] Telephone Encounter - Leanne Benavides MA - 12/11/2023 8:42 AM EDT Last OV: 10/23/2023 Next OV: 03/22/2024 Last Labs: 10/23/2023 Last refill: Comment: documented in this encounter Plan of Treatment Not on file documented as of this encounter Visit Diagnoses Not on filedocumented in this encounter Additional Health Concerns Assessment Noted Time PHQ-9 Depression Total Score: 13 024 11:52 AM EDT documented as of this encounter Care Teams Fishing Gear Mechanic Relationship Specialty Start Date End Date Yonatan Graves DO [address] [place] [address] PCP - General 09/02/23 Farida Ortega, RELAY TELEGRAPHER [address] [place] [address] Referring Physician Gastroenterology 09/02/23 documented as of this encounter
--- OUTSIDE RECORDS SUMMARY | 2024-05-11 18:29 | XMS_ITS | Encounter Summary ---
Author Organization [facility] Address [address] [place] [address] Care Team Providers Care Instrument Panel Assembler Name Role Phone Provider, No Known Primary Care Provider [phone] Reason for Visit * Reason Comments Alcohol Problem * Auth/Cert (Routine) Specialty Diagnoses / Procedures Referred By Roselyn mccollum Referred To Contact Diagnoses Chemical dependency Chemical Dependency Referral ID Status Reason Start Date Expiration Date Visits Re quested Visits Authorized [id number] 1 1 Encounter Details Date Type Department Care Team (Late st Contact Info) Description 08/01/2023 6:53 PM EST - 08/01/2023 11:10 PM EST Emergency [facility] [address] [place] [address] Nilson Joseph MD [address] [facility] [address] [place] [address] [phone] (Work) Aleyda Dukes MD [address] [facility] [address] [place] [address] Alcohol abuse (Primary Dx); End stage liver disease Discharge Disposition: Psychiatric Hospital or Unit (DC - External or [facility]) Social History Tobacco Use Types Packs/Day Years Used Date Smoking Tobacco: Never Smokeless Tobacco: Never Alcohol Use Standard Drinks/Week Comments Yes 0 (1 standard drink = 0.6 oz pure alcohol) 4-6 wine coolers daily for several years AUDIT-C Answer Date Recorded Q1: How often do you have a drink containing alcohol? 4 or more times a week 08/02/2023 Q2: How many drinks containi ng alcohol do you have on a typical day when you are drinking? 7 to 9 Q3: How often do you have si x or more drinks on one occasion? Daily or almost daily 08/02/2023 Abuse Screen Answer Date Recorded Feels Unsafe at Home or Work/School no 08/01/2023 Feels Threatened by Someone no 02/2024 Does Anyone Try to Keep You From Having Contact with Others or Doing Things Outside Your Home? no 08/01/2023 Physical Signs of Abuse Present no 08/01/2023 Housing Stability Answer Date Recorded Current Living Arrangements home 02/2024 Potentially Unsafe Housing Conditions Not on luann e 08/01/2023 Family and Community Support Answer Petr e Recorded Help with Day-to-Day Activities Not on file 03/30/2023 Lonely or Isolated Not on file 03/30/2023 Employment Answer Date Recorded Do you want help finding or keeping work or a [employer] b? Not on file 03/30/2023 Disabilities Answer Date Recorded Difficulty Concentrating, Remembering or Making Decisions no 08/01/2023 Difficulty Managing Errands Independently no 08/01/2023 Education Answer Date Recorded Help with school or training? Not on file Preferred Language Not on file 03/30/2023 Comments No Sex and Gender Information Value Date Recorded Sex Assigned at Not on file Legal Sex Female 10:56 AM EDT Gender Identity Not on file Sexual Orientation Not on file documented as of this encounter Last Filed Vital Signs Vital Sign Reading Time Taken Comments Blood Pressure 110/70 08/01/2023 11:00 PM EST Pulse 100 08/01/2023 11:00 PM EST Temperature 36.7 ??C (98 ??F) 08/01/2023 11:00 PM EST Respiratory Rate 18 08/01/2023 11:00 PM EST Oxygen Saturation 97% 08/01/2023 11:00 PM EST Inhaled Oxygen Concentration - - Weight 66.7 kg (147 lb) 08/01/2023 6:50 PM EST Height 165.1 cm (5' 5 ) 08/01/2023 6:50 PM EST Body Mass Index 24.46 08/01/2023 6:50 PM EST documented in this encounter Medications at Time of Discharge furosemide (LASIX) 40 MG tabletIndication s:Hepatic Cirrhosis Take 1 tablet by mouth daily. Indications: Hardening of the Liver 30 tablet 08/05/2023 10:27 AM EST 08/06/2023 spironolactone (ALDACTONE) 50 MG tabletIndication s:Hepatic Cirrhosis Take 1 tablet by mouth 2 times a day. Indications: Hardening of the Liver 60 tablet 08/05/2023 10:27 AM EST 08/05/2023 documented as of this encounter Nursing Notes * Erin Dejesus RN - 08/01/2023 11:10 PM EST KONSTANTIN Chapman given report. * Erin Dejesus RN - 08/01/2023 11:09 PM EST Luis Lead RN contacted at this time for chart review and request of bed assignment. Bed assigned to 45B. * Erin Dejesus RN - 08/01/2023 11:06 PM EST Luis Lead RNRegina, to call with bed assignment. EKG completed per current admission protocolprior to return to Intake. Dr. Dukes has cleared pt for admission to Detox Unit. * Erin Dejesus RN - 08/01/2023 10:48 PM EST Spoke to Dr. Crooks via phone. Intake information provided. Instructed to admit the patient. Admit orders received. SP4 routine orders, Ativan detox protocol, CMP in AM RBTOx2. Patient and ED provider made aware of plan of care. Safety precautions maintained. * Erin Dejesus RN - 08/01/2023 10:38 PM EST Intake assessment completed at this time. Pt presents to Intake wishing to detox off alcohol. Pt isin stage 4 Liver failure. Pt was told today that she is dying and needs a transplant. Pt was also told she must have 6mo of sobriety before that will be considered. Pt reports approx 6-8 wine coolersdaily for several years with no more than a day of sobriety at a time. Pt states she has dramatically decreased her ETOH intake, but the withdrawals prevent her from quitting without help. Labs UDS + THC PT 21.7 INR 1.81 ETOH 52 BUN 4 Na 131 K+ 3.2, replaced in ED ALT 55 AST 112 BUN/Creatinine ratio 5.7 RBC 3.13 Platelets 97 Anxiety 10 depression 10 craving 10 on scale of 0-10. Sleep & appetite poor. Pt denies any SI/HI/AVH. CIWA 13 Pt A&Ox 3. * Erin Dejesus RN - 08/01/2023 10:15 PM EST Search completed with 2 staff members present. Pt educated about mask and encouraged to keep mask on in intake area if having signs/symptoms of COVID. Items placed in cabinet. * Erin Dejesus RN - 08/01/2023 10:00 PM EST Pt states she does not want to stay. Pt speaking to at this time, wishing to go home and make appointment for PHP or IOP program with [facility]. On concluding phone call, pt states she is going to stay. * Erin Dejesus RN - 08/01/2023 9:50 PM EST Pt returned to Intake. Pt does not wish to be searched. Requesting other options. Wishes to call her . * Erin Dejesus RN - 08/01/2023 9:44 PM EST Report received from KONSTANTIN Mckeon. * Erin Dejesus RN - 08/01/2023 9:37 PM EST Report from Dr. Dukes at this time. * Erin Dejesus RN - 08/01/2023 7:33 PM EST Pt transferred to ED room 12. * Erin Dejesus RN - 08/01/2023 7:05 PM EST MARCUS Swain with pt at this time. * Erin Dejesus RN - 08/01/2023 6:59 PM EST Pt to Intake. Pt states she is not here for detox, she was transferred from for liver failure and is supposed to be admitted. Spoke with MARCUS Swain to report issue. documented in this encounter ED Notes * Mike Sutton RN - 08/01/2023 8:05 PM EST Pt has been given urine cup and instructed to provide urine specimen. * Lucas Arredondo PCT - 08/01/2023 7:06 PM EST Attempted to get patients blood and patient refused saying she was wanting to receive an IV will attempt again later * Aleyda Dukes MD - 08/01/2023 6:57 PM EST Subjective History of Present Illness 33-year-old female presents to the ED today and reports that she is in complete liver failure. She states she needs a complete workup. She has a past history of hepatitis C and she reports that she underwent treatment for this several years ago and it was successful. She states she is also beentold that she has autoimmune hepatitis. She does drink alcohol daily. She states she has cut back alot recently and is drinking 4-6 wine coolers per day. She states her last drink was around 2 PM today. She denies any drug use. She has been diagnosed with end-stage liver disease and follows with [facility] for this. She states for at least the last week she has been having increased fatigue, generalized weakness and jaundice. She states a couple days ago she had an episode of beingincoherent for at least 24 hours. She states a few months ago her MELD score was in the 20s and shefeels like currently it is probably much worse. She states her dad also had a history of liver cirrhosis and received a liver transplant due to SOLER. She does report that she will have opiates on her urine drug screen because she had to take half of a hydrocodone due to a recent root canal. She states she was instructed to come to our facility by her addiction medicine specialist for medical detox. History provided by: Patient Illness Onset quality: Gradual Duration: at least 1 week. Timing: Constant Progression: Worsening Chronicity: Chronic Associated symptoms: fatigue Associated symptoms: no abdominal pain, no chest pain, no congestion, no cough, no diarrhea, no fever, no headaches, no myalgias, no nausea, no rash, no shortness of breath, no vomiting and no wheezing Review of Systems Constitutional: Positive for appetite change and fatigue. Negative for fever. HENT: Negative for congestion. Eyes: Negative. Respiratory: Negative for cough, shortness of breath and wheezing. Cardiovascular: Negative for chest pain. Gastrointestinal: Negative for abdominal pain, diarrhea, nausea and vomiting. Genitourinary: Negative. Musculoskeletal: Negative for myalgias. Skin: Negative for rash. Neurological: Positive for weakness. Negative for headaches. Psychiatric/Behavioral: Positive for confusion. Negative for suicidal ideas. All other systems reviewed and are negative. Past 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: Diagnosis Date Alcohol abuse Alcoholism Anxiety Calculus of both kidneys Gallbladder calculus Liver disease Seizures Withdrawal symptoms, alcohol No Known Allergies Past Surgical History: Procedure Laterality Date APPENDECTOMY D & C AND LAPAROSCOPY x2 KIDNEY SURGERY Bilateral TONSILLECTOMY History reviewed. No pertinent family history. Social History Socioeconomic History Marital status: Tobacco Use Smoking status: Never Smokeless tobacco: Never Vaping Use Vaping Use: Never used Substance and Sexual Activity Alcohol use: Yes Comment: 4-6 wine coolers daily for several years Drug use: Not Currently Sexual activity: Yes Partners: Male Objective Physical Exam Vitals and nursing note reviewed. Constitutional: General: She is not in acute distress. Appearance: She is ill-appearing. She is not diaphoretic. HENT: Head: Normocephalic and atraumatic. Right Ear: External ear normal. Left Ear: External ear normal. Nose: Nose normal. Mouth/Throat: Mouth: Mucous membranes are moist. Pharynx: Oropharynx is clear. Eyes: General: Scleral icterus present. Extraocular Movements: Extraocular movements intact. Pupils: Pupils are equal, round, and reactive to light. Cardiovascular: Rate and Rhythm: Regular rhythm. Tachycardia present. Pulses: Normal pulses. Heart sounds: Normal heart sounds. Pulmonary: Effort: Pulmonary effort is normal. Breath sounds: Normal breath sounds. Abdominal: General: Bowel sounds are normal. Palpations: Abdomen is soft. Tenderness: There is no abdominal tenderness. There is no guarding or rebound. Musculoskeletal: General: Normal range of motion. Cervical back: Normal range of motion and neck supple. Skin: General: Skin is warm and dry. Capillary Refill: Capillary refill takes less than 2 seconds. Coloration: Skin is jaundiced. Neurological: General: No focal deficit present. Mental Status: She is alert and oriented to person, place, and time. Psychiatric: Mood and Affect: Mood is anxious. Thought Content: Thought content does not include homicidal or suicidal ideation. Procedures ED Course ED Course as of 08/01/23 225FriAug 01, [id number] Endorsed to Dr. Dukes [] 2046 I personally evaluated the patient alongside NANCY Cueto. Results of workup reviewed. Patient does not meet criteria for admission to the hospital for her liver failure. [facility] liver [facility] due to alcohol and hep C. Patient continues to drink alcohol, last drink was today. Explained options for detox to both patient and family at bedside. During conversation patient was initially not interested in inpatient detox. However, after preparations for patient's discharge with outpatient GI follow-up arranged patient has changed her mind and is now stating interest in inpatient detox. Will await urine specimen to complete detox screening protocol and will reach back out to detox intake. [KH] 2047 MELD score is 26 [] 2049 Dr. Dukes and I had a long discussion with the patient about her liver disease and the fact that there is no further treatment for her liver disease except for a liver transplant. We discussed that she cannot be considered for a liver transplant until she has been alcohol free for at least 6 months. We discussed with her that at this time she does not meet criteria for a medical admission to the hospital but she can be evaluated for a admission to the detox unit at the [facility]. Initially the patient told us that she is not interested in going to the [facility] for medical detox. She does not want to go through that process and wants to go home. Her significant other is at the bedside and was available for this whole conversation. She was adamant that she was leaving therefore I did her discharge. Her significant other then came to the nurses station and said that now she would like to stay and be evaluated for detox. At this time she is medically clear for that evaluation. [] 2146 EKG ED Interpretation by: Aleyda Dukes MD on 08/01/23 at 20:09 EKG: HR 93, normal EKG, normal sinus rhythm, there are no previous tracings available for comparison, prolonged QT interval, Qtc 504. Electronically signed by Aleyda Dukes MD, 08/01/23, 9:47 PM EST. [] 2253 Patient to be admitted to inpatient detox for alcohol. [KH] ED Course User Index [AH] Brynn Vick PA [] Aleyda Dukes MD Medical Decision Making Problems Addressed: Alcohol abuse: complicated acute illness or injury End stage liver disease: complicated acute illness or injury Amount and/or Complexity of Data Reviewed Labs: ordered. ECG/medicine tests: ordered. Risk Prescription drug management. Final diagnoses: End stage liver disease Alcohol abuse Electronically signed by NANCY Gregory, 08/01/23, 8:05 PM EST. ED Disposition ED Disposition ED Disposition DC/Transfer to Behavioral Health Condition Stable Comment -- No follow-up provider specified. Medication List No changes were made to your prescriptions during this visit. Aleyda Dukes MD 08/01/23 2400 documented in this encounter Plan of Treatment Not on file documented as of this encounter Procedures Procedure Name Priority Date/Time Associated Diagnosis Comments URINALYSIS, MICROSCOPIC ONLY STAT 08/01/2023 9:00 PM EST URINALYSIS W/ MICROSCOPIC IF INDICATED (NO CULTURE) STAT 08/01/2023 9:00 PM EST URINE DRUG SCREEN STAT 08/01/2023 9:0 0 PM EST , URINE STAT 08/01/2023 9:00 PM EST FENTANYL, URINE STAT 08/01/2023 9:00 PM EST ECG 12-LEAD STAT 08/01/2023 8:09 PM EST APTT STAT 08/01/2023 7:47 PM EST PROTIME-INR STAT 08/01/2023 7:47 PM EST AMMONIA STAT 08/01/2023 7:47 PM EST GOLD TOP - SST STAT 08/01/2023 7:46 PM EST DK GREEN TOP STAT 08/01/2023 7:46 PM EST CBC WITH AUTO DIFFERENTIAL STAT 08/01/2023 7:46 PM EST LAVENDER TOP STAT 08/01/2023 7:46 PM EST LIGHT BLUE TOP STAT 08/01/2023 7:46 PM EST RAINBOW DRAW STAT 08/01/2023 7:46 PM EST CBC AND DIFFERENTIAL STAT 08/01/2023 7:46 PM EST MAGNESIUM STAT 08/01/2023 7:46 PM EST ETHANOL STAT 08/01/2023 7:46 PM EST COMPREHENSIVE METABOLIC PANEL STAT 08/01/2023 7:46 PM EST documented in this encounter Results * (ABNORMAL) Urinalysis, Microscopic Only - Urine, Clean Catch (08/01/2023 9:00 PM EST) RBC, UA 0-2 None Seen, 0-2 /HPF 08/01/2023 9:35 PM EST [facility] WBC, UA 0-2 None Seen, 0-2 /HPF 08/01/2023 9:35 PM EST [facility] Bacteria, UA None Seen None Seen /HPF 08/01/2023 9:35 PM EST [facility] Squamous Epithelial Cells, UA 3-6(A) None Seen, 0-2 /HPF 08/01/2023 9:35 PM EST [facility] Hyaline Casts, UA None Seen None Seen /LPF 08/01/2023 9:35 PM EST [facility] Methodology Manual Light Microscopy 08/01/2023 9:35 PM EST [facility] Urine Urine specimen obtained by clean catch procedure / Unknown Collection / Unknown 08/01/2023 9:00 PM EST 08/01/2023 9:03 PM EST Brynn CRUZ URINE ORDERABLES Final Result [facility]
[address] [place] [id number], [phone] * Fentanyl, Urine - Urine, Clean Catch (08/01/2023 9:00 PM EST) Fentanyl, Urine Negative Negative 08/01/2023 9:16 PM EST [facility] Urine Urine specimen obtained by clean catch procedure / Unknown Collection / Unknown 08/01/2023 9:00 PM EST 08/01/2023 9:03 PM EST [facility] - 08/01/2023 9:16 PM EST Negative Threshold: ?? Fentanyl 5 ng/mL The normal value for the drug tested is negative. This report includes final unconfirmed screening results to be used for medical treatment purposes only. Unconfirmed results must not be used for non-medical purposes such as employment or legal testing. Clinical consideration should be applied to any drug of abuse test, particularly when unconfirmed results are used. ? Brynn CRUZ URINE ORDERABLES Final Result [facility]
[address] [place] [address], [phone] * (ABNORMAL) Urine Drug Screen - Urine, Clean Catch (08/01/2023 9:00 PM EST) THC, Screen, Urine Positive(A) Negative 08/01 9:18 PM EST [facility] Phencyclidine (PCP), Urine Negative Negative 08/01/2023 9:18 PM EST [facility] Cocaine Screen, Urine Negative Negative 08/01/2023 9:18 PM EST [facility] Methamphetamine, Ur Negative Negative 08/01/2023 9:18 PM EST [facility] Opiate Screen Negative Negative 08/01/2023 9:18 PM EST [facility] Amphetamine Screen, Urine Negative Negative 08/01/2023 9:18 PM EST [facility] Benzodiazepine Screen, Urine Negative Negative 08/01/2023 9:18 PM EST [facility] Tricyclic Antidepressants Screen Negative Negative 08/01/2023 9:18 PM EST [facility] Methadone Screen, Urine Negative Negative 08/01/2023 9:18 PM EST [facility] Barbiturates Screen, Urine Negative Negative 08/01/2023 9:18 PM EST [facility] Oxycodone Screen, Urine Negative Negative 08/01/2023 9:18 PM EST [facility] Buprenorphine, Screen, Urine Negative Negative 08/01/2023 9:18 PM EST [facility] Urine Urine specimen obtained by clean catch procedure / Unknown Collection / Unknown 08/01/2023 9:00 PM EST 08/01/2023 9:03 PM EST [facility] - 08/01/2023 9:18 PM EST Cutoff For Drugs Screened: Amphetamines ? 500 ng/ml Barbiturates ? 200 ng/ml Benzodiazepines ?150 ng/ml Cocaine ?150 ng/ml Methadone ?200 ng/ml Opiates ?100 ng/ml Phencyclidine ? 25 ng/ml THC ? 50 ng/ml Methamphetamine ?500 ng/ml Tricyclic Antidepressants ??300 ng/ml Oxycodone ?100 ng/ml Buprenorphine ? 10 ng/ml The normal value for all drugs tested is negative. This report includes unconfirmed screening results, with the cutoff values listed, to be used for medical treatment purposes only. ??Unconfirmed results must not be used for non-medical purposes such as employment or legal testing. ??Clinical consideration should be applied to any drug of abuse test, particularly when unconfirmed results are used. ?? Brynn CRUZ URINE ORDERABLES Final Result [facility]
[address] [place] [address], [place] [phone] * (ABNORMAL) Urinalysis With Microscopic If Indicated (No Culture) - Urine, Clean Catch (08/01/2023 9:00 PM EST) Color, UA Dark Yellow(A) Yellow, Straw 08/01/2023 9:24 PM EST [facility] Appearance, UA Clear Clear 08/01/2023 9:24 PM EST [facility] pH, UA 7.5 5.0 - 8.0 08/01/2023 9:24 PM [facility] Specific Canadian, UA 1.009 1.005 - 1.030 08/01/2023 9:24 PM EST [facility] Glucose, UA Negative Negative 08/01/2023 9:24 PM EST [facility] Ketones, UA Negative Negative 08/01/2023 9:24 PM EST [facility] Bilirubin, UA Small (1+)(A) Negative 08/01/2023 9:24 PM [facility] Blood, UA Trace(A) Negative 08/01/2023 9:24 PM [facility] Protein, UA Negative Negative 08/01/2023 9:24 PM EST [facility] Leuk Esterase, UA Negative Negative 08/01/2023 9:24 PM [facility] Nitrite, UA Negative Negative 08/01/2023 9:24 PM [facility] Urobilinogen, UA 1.0 E.U./dL 0.2 - 1.0 E.U./dL 08/01/2023 9:24 PM [facility] Urine Urine specimen obtained by clean catch procedure / Unknown Collection / Unknown 08/01/2023 9:00 PM EST 08/01/2023 9:03 PM EST us Brynn CRUZ URINE ORDERABLES Final Result [facility]
[address] [facility] [place], [place] [address], [phone] * , Urine - Urine, Clean Catch (08/01/2023 9:00 PM EST) HCG, Urine QL Negative Negative 08/01/2023 9:13 PM EST [facility] Urine Urine specimen obtained by clean catch procedure / Unknown Collection / Unknown 08/01/2023 9:00 PM EST 08/01/2023 9:03 PM EST Narrative [facility] - 08/01/2023 9:13 PM EST Diluted specimens may cause false negative results. us Brynn CRUZ URINE ORDERABLES Final Result [facility]
[address] [place] [address], [phone] * ECG 12 Lead Tachycardia (08/01/2023 8:09 PM EST) QT Interval 406 ms ECG QTC Interval 504 ms ECG 08/01/2023 8:09 PM EST 08/02/2023 2:22 PM EST Narrative ECG - 08/02/2023 2:22 PM EST Test Reason : Tachycardia Blood Pressure : ?? */* ?? mmHG Vent. Rate : ??93 BPM ? Atrial Rate : ??93 BPM ?? P-R Int : 142 ms ?QRS Dur : ??82 ms ?QT Int : 406 ms ? P-R-T Axes : ??57 ??44 ??38 degrees ?? QTc Int : 504 ms Normal sinus rhythm Nonspecific ST and T wave abnormality Borderline ECG No previous ECGs available Confirmed by Kenisha Trujillo (Afshan) on 08/02/2023 2:22:15 PM Referred By: AZALEA ? Confirmed By: Kenisha Trujillo Procedure Note Kenisha Trujillo MD - 08/02/2023 Test Reason : Tachycardia Blood Pressure : */* mmHG Vent. Rate : 93 BPM Atrial Rate : 93 BPM P-R Int : 142 ms QRS Dur : 82 ms QT Int : 406 ms P-R-T Axes : 57 44 38 degrees QTc Int : 504 ms Normal sinus rhythm Nonspecific ST and T wave abnormality Borderline ECG No previous ECGs available Confirmed by Kenisha Trujillo (2003) on 08/02/2023 2:22:15 PM Referred By: AZALEA Confirmed By: Kenisha Trujillo us Brynn CRUZ ECG ORDERABLES Final Result Performing Organization Address [facility] de Phone Number ECG * Ammonia (08/01/2023 7:47 PM EST) Ammonia 47 11 - 51 umol/L 08/01/2023 8:13 PM EST [facility] Blood Venipuncture / Unknown 08/01/2023 7:47 PM EST 08/01/2023 7:50 PM EST Brynn CRUZ LAB BLOOD ORDERABLES Final Resul t Performing Organization Address [facility] [address]/[facility] de Phone Number [facility]
[address] [place] [address], [place] [phone] * aPTT (08/01/2023 7:47 PM EST) PTT 34.3 26.5 - 34.5 seconds 08/01/2023 8:27 PM EST [facility] Blood Venipuncture / Unknown 08/01/2023 7:47 PM EST 08/01/2023 7:50 PM EST Narrative [facility] - 08/01/2023 8:27 PM EST PTT Heparin Therapeutic Range: ??59 - 95 seconds us Brynn CRUZ LAB BLOOD ORDERABLES Final Resul t Performing Organization Address [facility] [address]/ZIP Co de Phone Number [facility]
[address] [place] [address], [place] [phone] * (ABNORMAL) Protime-INR (08/01/2023 7:47 PM EST) Protime 21.7(H) 12.1 - 14.7 Seconds 08/01/2023 8:27 PM EST [facility] INR 1.81(H) 0.90 - 1.10 08/01/2023 8:27 PM EST [facility] Blood Venipuncture / Unknown 08/01/2023 7:47 PM EST 08/01/2023 7:50 PM EST Narrative [facility] - 08/01/2023 8:27 PM EST Suggested INR therapeutic range for stable oral anticoagulant therapy: Low Intensity therapy: ?? 1.5-2.0 Moderate Intensity therapy: ?? 2.0-3.0 High Intensity therapy: ?? 2.5-4.0 us Brynn CRUZ LAB BLOOD ORDERABLES Final Resul t Performing Organization Address [facility] Co de Phone Number [facility] [place] [address], [place] [phone] * Light Blue Top (08/01/2023 7:46 PM EST) Extra Tube Hold for add-ons. 08/01/2023 9:01 PM EST [facility] Comment:Auto resulted Blood Venipuncture / Unknown 08/01/2023 7:46 PM EST 08/01/2023 7:50 PM EST us Brynn CRUZ LAB BLOOD ORDER ONLY Final Resul t Performing Organization Address City/[facility] [address]/ZIP Co de Phone Number [facility] [place] [address], [place] [phone] * Gold Top - SST (08/01/2023 7:46 PM EST) Extra Tube Hold for add-ons. 08/01/2023 9:01 PM EST [facility] Comment:Auto resulted. Blood Venipuncture / Unknown 08/01/2023 7:46 PM EST 08/01/2023 7:50 PM EST us Brynn CRUZ LAB BLOOD ORDER ONLY Final Resul t [facility] [place] [address], [place] [phone] * Lavender Top (08/01/2023 7:46 PM EST) Extra Tube hold for add-on 08/01/2023 9:01 PM EST [facility] Comment:Auto resulted Blood Venipuncture / Unknown 08/01/2023 7:46 PM EST 08/01/2023 7:50 PM EST us Brynn CRUZ LAB BLOOD ORDER ONLY Final Resul t Performing Organization Address [facility] de Phone Number [facility]
1 [facility] [employer], [place] [address], [place] [phone] * Green Top (Gel) (08/01/2023 7:46 PM EST) Extra Tube Hold for add-ons. 08/01/2023 9:01 PM EST [facility] Comment:Auto resulted. Blood Venipuncture / Unknown 08/01/2023 7:46 PM EST 08/01/2023 7:50 PM EST us Brynn CRUZ LAB BLOOD ORDER ONLY Final Resul t Performing Organization Address City/[facility] [address]/ZIP Co de Phone Number [facility] [place] [address], [place] [phone] * (ABNORMAL) CBC Auto Differential (08/01/2023 7:46 PM EST) [facility] WBC 7.26 3.40 - 10.80 10*3/mm3 08/01/2023 7:53 PM [facility] RBC 3.13(L) 3.77 - 5.28 10*6/mm3 08/01/2023 7:53 PM EST [facility] Hemoglobin 12.0 12.0 - 15.9 g/dL 08/01/2023 7:53 PM [facility] Hematocrit 34.7 34.0 - 46.6 % 08/01/2023 7:53 PM [facility] MCV 110.9(H) 79.0 - 97.0 fL 08/01/2023 7:53 PM [facility] MCH 38.3(H) 26.6 - 33.0 pg 08/01/2023 7:53 PM [facility] MCHC 34.6 31.5 - 35.7 g/dL 08/01/2023 7:53 PM [facility] RDW 15.2 12.3 - 15.4 % 08/01/2023 7:53 PM [facility] RDW-SD 62.1(H) 37.0 - 54.0 fl 08/01/2023 7:53 PM [facility] MPV 10.3 6.0 - 12.0 fL 08/01/2023 7:53 PM [facility] Platelets 97(L) 140 - 450 10*3/mm3 08/01/2023 7:53 PM [facility] Neutrophil % 65.8 42.7 - 76.0 % 08/01/2023 7:53 PM [facility] Lymphocyte % 18.6(L) 19.6 - 45.3 % 08/01/2023 7:53 PM [facility] Monocyte % 12.8(H) 5.0 - 12.0 % 08/01/2023 7:53 PM [facility] Eosinophil % 1.5 0.3 - 6.2 % 08/01/2023 7:53 PM EST [facility] Basophil % 0.7 0.0 - 1.5 % 08/01/2023 7:53 PM EST [facility] Immature Grans % 0.6(H) 0.0 - 0.5 % 08/01/2023 7:53 PM EST [facility] Neutrophils, Absolute 4.78 1.70 - 7.00 10*3/mm3 08/01/2023 7:53 PM EST [facility] Lymphocytes, Absolute 1.35 0.70 - 3.10 10*3/mm3 08/01/2023 7:53 PM EST [facility] Monocytes, Absolute 0.93(H) 0.10 - 0.90 10*3/mm3 08/01/2023 7:53 PM EST [facility] Eosinophils, Absolute 0.11 0.00 - 0.40 10*3/mm3 08/01/2023 7:53 PM EST [facility] Basophils, Absolute 0.05 0.00 - 0.20 10*3/mm3 08/01/2023 7:53 PM EST [facility] Immature Grans, Absolute 0.04 0.00 - 0.05 10*3/mm3 08/01/2023 7:53 PM EST [facility] nRBC 0.0 0.0 - 0.2 /100 WBC 08/01/2023 7:53 PM EST [facility] Blood Venipuncture / Unknown 08/01/2023 7:46 PM EST 08/01/2023 7:50 PM EST us Brynn CRUZ LAB BLOOD ORDERABLES Final Resul t [facility]
[address] [facility] [place] [address], [phone] * Magnesium (08/01/2023 7:46 PM EST) [facility] Signature Magnesium 2.0 1.6 - 2.6 mg/dL 08/01/2023 8:13 PM EST [facility] Blood Venipuncture / Unknown 08/01/2023 7:46 PM EST 08/01/2023 7:50 PM EST us Brynn CRUZ LAB BLOOD ORDERABLES Final Resul t Performing Organization Address [facility]/ZIP Co de Phone Number [facility]
1 [place] [address], [phone] * (ABNORMAL) Ethanol (08/01/2023 7:46 PM EST) Ethanol 52(H) 0 - 10 mg/dL 08/01/2023 8:11 PM EST [facility] Ethanol % 0.052 % 08/01/2023 8:11 PM EST [facility] Blood Venipuncture / Unknown 08/01/2023 7:46 PM EST 08/01/2023 7:50 PM EST Narrative [facility] - 08/01/2023 8:11 PM EST >/= 80.0 legally intoxicated us Brynn CRUZ LAB BLOOD ORDERABLES Final Resul t Performing Organization Address [facility]/ZIP Co de Phone Number [facility]
[address] [place] [address], [phone] * (ABNORMAL) Comprehensive Metabolic Panel (08/01/2023 7:46 PM EST) Glucose 114(H) 65 - 99 mg/dL 08/01/2023 8:13 PM EST [facility] BUN 4(L) 6 - 20 mg/dL 08/01/2023 8:13 PM EST [facility] Creatinine 0.70 0.57 - 1.00 mg/dL 08/01/2023 8:13 PM EST [facility] Sodium 131(L) 136 - 145 mmol/L 08/01/2023 8:13 PM [facility] Potassium 3.2(L) 3.5 - 5.2 mmol/L 08/01/2023 8:13 PM [facility] Comment:Slight hemolysis det ected by analyzer. Result may be falsely elevated. Chloride 96(L) 98 - 107 mmol/L 08/01/2023 8:13 PM [facility] CO2 22.8 22.0 - 29.0 mmol/L 08/01/2023 8:13 PM [facility] Calcium 8.7 8.6 - 10.5 mg/dL 08/01/2023 8:13 PM [facility] Total Protein 7.1 6.0 - 8.5 g/dL 08/01/2023 8:13 PM [facility] Albumin 3.2(L) 3.5 - 5.2 g/dL 08/01/2023 8:13 PM [facility] ALT (SGPT) 55(H) 1 - 33 U/L 08/01/2023 8:13 PM [facility] AST (SGOT) 112(H) 1 - 32 U/L 08/01/2023 8:13 PM [facility] Alkaline Phosphatase 177(H) 39 - 117 U/L 08/01/2023 8:13 PM [facility] Total Bilirubin 10.0(H) 0.0 - 1.2 mg/dL 08/01/2023 8:13 PM [facility] Globulin 3.9 gm/dL 08/01/2023 8:13 PM [facility] A/G Ratio 0.8 g/dL 08/01/2023 8:13 PM [facility] BUN/Creatinine Ratio 5.7(L) 7.0 - 25.0 08/01/2023 8:13 PM [facility] Anion Gap 12.2 5.0 - 15.0 mmol/L 08/01/2023 8:13 PM [facility] eGFR 117.3 >60.0 mL/min/1.7 3 08/01/2023 8:13 PM EST [facility] Blood Venipuncture / Unknown 08/01/2023 7:46 PM EST 08/01/2023 7:50 PM EST Narrative [facility] - 08/01/2023 8:13 PM EST GFR Normal >60 Chronic Kidney Disease <60 Kidney Failure <15 us Brynn CRUZ LAB BLOOD ORDERABLES Final Resul t [facility]
1 [facility] [place] [address], [place] [phone] documented in this encounter Visit Diagnoses Diagnosis Alcohol abuse- Primary Nondependent alcohol abuse, unspecified drinking behavior End stage liver disease documented in this encounter Administered Medications Inactive Administered Medications - up to 3 most recent administrations Medication Order MAR Action Action Date Dose Rate Site potassium chloride (K-DUR,KLOR-CON) CR tablet 40 mEq 40 mEq, Oral, Once, On Fri08/01/23 at 2038, For 1 dose, Do not crush. Take with food. Take with food. Given 08/01/2023 8:36 PM EST 40 mEq sodium chloride 0.9 % flush 10 mL 10 mL, Intravenous, As Needed, Line Care, Starting on Fri08/01/23 at 1923 documented in this encounter Active and Recently Administered Medications Times are shown in EST. Scheduled Medication Order 07/30/2023 07/31/2023 08/01/2023 potassium chloride (K-DUR,KLOR-CON) CR tablet 40 mEq (COMPLETED) 40 mEq, Oral, Once, On Fri08/01/23 at 2038, For 1 dose, Do not crush. Take with food. Take with food. 2035 (Given - Provid er: Mike Sutton RN) PRN Medication Order 07/30/2023 07/31/2023 08/01/2023 sodium chloride 0.9 % flush 10 mL(Linked Group 1) 10 mL, Intravenous, As Needed, Line Care, Starting on Fri08/01/23 at 1924 Linked Groups Order Group 1: Insert Peripheral IV (COMPLETED) Once, On Fri08/01/23 at 1925, For 1 occurrence And sodium chloride 0.9 % flush 10 mLJump to med 10 mL, Intravenous, As Needed, Line Care, Starting on Fri08/01/23 at 1924 documented in this encounter Care Teams Instrument Panel Assembler Relationship Specialty Start Date End Date Provider, No Known [facility] [place] [id number] PCP - General 08/01/23 10/22/23 documented as of this encounter
--- OUTSIDE RECORDS SUMMARY | 2024-05-11 18:29 | XMS_ITS | Encounter Summary ---
Author Organization [facility] Address [facility] [place] [place] [address] Care Team Providers Care Upper Leather Cutter Name Role Phone Yonatan Graves DO Primary Care Provider Farida Ortega MATERIALS RESEARCH ENGINEER Unavailable [phone] Source Comments This information has been disclosed [...] release of HIV test results or diagnoses. [id number] Reason for Visit * Reason Onset Date Comments Medication Refill 11/02/2023 Refill Request 3rd Attempt Encounter Details Date Type Department Care Team (Late st Contact Info) Description 11/02/2023 Refill [facility] at [facility] [address] [place] [address], [address] [place] [phone] Agustin Hurt MD Social History Tobacco [...] encounter Miscellaneous Notes * Telephone Encounter - Tessa Gamez MA - 11/04/2023 3:26 PM EDT Pt requesting refill on her spironolactone sent to [facility] she is completely out Pt has been calling since Friday. Pt states if she misses dosage she swells and has to get a drain tube put in. Pt is getting a little frustrated about it. Pt would like a return call. Pt can be reached at [phone] * Telephone Encounter - Abida Ryan MA - 11/03/2023 12:57 PM EDT Last OV: 10/23/23 Next OV: 03/22/24 Last Labs: 10/23/23 Last refill: 09/11/23 Comment: Possible Duplicate * Telephone Encounter - Tessa Gamez MA - 11/03/2023 11:45 AM EDT Pharmacy requesting prescription refill. MEDICATIONS REQUESTED: Requested Prescriptions Pending Prescriptions Disp Refills furosemide (LASIX) 20 MG tablet 180 tablet 0 Sig: Take 3 tablets (60 mg total) by mouth 2 times a day. spironolactone (ALDACTONE) 50 MG tablet 180 tablet 0 Sig: Take 3 tablets (150 mg total) by mouth 2 times a day. Is the patient out of medication? Yes PHARMACY & PHONE #: [id number] - [place] - [address] [facility] [address] [place] [address] [address] [place] [phone] DATE OF LAST APPT: 10/23/2023 Agustin Hurt MD DATE OF NEXT APPT: 03/22/2024 Agustin Hurt MD * Telephone Encounter - Nadya Jackman MA - 11/03/2023 7:23 AM EDT Possible duplicate. Please review. documented in this encounter Plan of Treatment Not on file documented as of this encounter Visit Diagnoses Not on filedocumented in this encounter Additional Health Concerns Assessment Noted Time PHQ-9 Depression Total Score: 13 024 11:52 AM EDT documented as of this encounter Care Teams Upper Leather Cutter Relationship Specialty Start Date End Date Yonatan Graves DO [address] [place] [address] PCP - General 09/02/23 Farida Ortega, HARLEEN [address] [place] [address] Referring Physician Gastroenterology 09/02/23 documented as of this encounter
--- OUTSIDE RECORDS SUMMARY | 2024-05-11 18:29 | XMS_ITS | Encounter Summary ---
Author Organization [facility] Address [facility][note 2]0 [place] [address] Care Team Providers Care Director Of Securities And Real Estate Name Role Phone Yonatan Graves DO Primary Care Provider Farida Ortega MIXER WHIPPED TOPPING Unavailable [phone] Source Comments This information has been disclosed [...] release of HIV test results or diagnoses. [id number] Health Encounter Details Date Type Department Care Team (Late st Contact Info) Description 11/05/2023 Orders Only [facility] at [facility] [address] [facility], [address] [place] [address] Grazyna Velasco MD [address] [place] [address] 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) [...] documented as of this encounter Care Teams Director Of Securities And Real Estate Relationship Specialty Start Date End Date Yonatan Graves DO [address] [place] [address] PCP - General 09/02/23 Farida Ortega, MIXER WHIPPED TOPPING [address] [place] [address] Referring Physician Gastroenterology 09/02/23 documented as of this encounter
--- OUTSIDE RECORDS SUMMARY | 2024-05-11 18:30 | XMS_ITS | Encounter Summary ---
Author Organization [facility] Address [address] [place] [address] Care Team Providers Care Braiding Machine Operator Name Role Phone Yonatan Graves DO Primary Care Provider Adryan Bearden Unavailable Encounter Details Date Type Department Care Team (Latest Contact Info) Description 02/11/2024 Travel Social History Tobacco Use Types Packs/Day Years Used Date Smoking Tobacco: Former Cigarettes Q uit: 05/14/2019 Passive Smoke Exposure: Past Smokeless Tobacco: Never Alcohol Use Standard Drinks/Week Comments Not Currently 0 (1 standard drink = 0.6 oz pure alcohol) Last drink was first week of July 2023 PHQ-2 Answer Date Recorded Patient Health Questionnaire-2 Score 2 02/11/2024 PHQ-9 Answer Date Recorded Patient Health Questionnaire-9 Score 12 02/11/2024 PHQ-2A Answer Date Recorded Patient Health Questionnaire-2 Score 0 05/29/2023 Comments No Sex and Gender Information Value Date Recorded Sex Assigned at Not on file Legal Sex Female 6:24 PM EDT Gender Identity Not on file Sexual Orientation Not on file documented as of this encounter Plan of Treatment Not on file documented as of this encounter Visit Diagnoses Not on filedocumented in this encounter Additional Health Concerns Assessment Noted Time PHQ-9 Depression Total Score: 12 024 11:57 AM EDT A fall risk assessment has been complete d for the patient 10/07/2023 9:46 AM EDT A Body Mass Index follow-up plan has been documented for the patient 02/06/2024 10:14 PM EDT documented as of this encounter Care Teams Braiding Machine Operator Relationship Specialty Start Date End Date Yonatan Graves DO [address] [place] [address] PCP - General 09/24/22 Adryan Beraden PA [facility] [place] [phone] Referring Physician Gastroenterology 09/24/22 documented as of this encounter
--- OUTSIDE RECORDS SUMMARY | 2024-05-11 18:30 | XMS_ITS | Clinical Summary ---
Author Organization [facility] Address [address] [place] [address] Care Team Providers Care Riverboat Captain Name Role Phone Jodie Gravesew Joseph LLANES Primary Care Provider Adryan Bearden Unavailable Allergies Active Allergy Reactions Criticality Noted Date Comments Amoxicillin Rash Low 12/08/2017 Morphine Other - please docum ent in the comment field Low 12/08/2017 Penicillins Rash,Unknown - Patie nt states they do not know rxn details Low 06/06/2015 Medications * This document contains information received from the source organization and may not represent a complete record from that organization. Multiple Vitamin (multivitamin) tablet Take 1 tablet by mouth 1 (one) time each day. 3 Active ondansetron (Zofran) 8 MG tablet Take 1 tablet (8 mg) by mouth every 12 (twelve) hours if needed for nausea or vomiting. Active furosemide (Lasix) 20 MG tablet Take 1 tablet (20 mg) by mouth 1 (one) time each day. 30 tablet 2 4 Active spironolactone (Aldactone) 50 MG tablet Take 2 tablets (100 mg) by mouth 1 (one) time each day. 60 each 2 4 Active gabapentin (Neurontin) 800 MG tablet Take 1 tablet (800 mg) by mouth 3 (three) times a day. 90 tablet 4 06/09/20 24 Active gabapentin (Neurontin) 800 MG tablet Take 1 tablet (800 mg) by mouth 3 (three) times a day. 90 tablet 4 05/10/20 Discontinu ed(Reorder ) Active Problems Problem Noted Date Diagnosed Date Acute bacterial bronchitis 07/03/2023 Asthma 07/03/2023 Bite 07/03/2023 Exposure to COVID-19 virus 07/03/2023 Finger contusion 07/03/2023 Finger sprain 07/03/2023 Shingles 07/03/2023 Viral syndrome 07/03/2023 Unspecified viral hepatitis C without hepatic co ma 04/10/2023 Other disorders of bilirubin metabolism 04/10/20 23 Other specified abnormal findings of blood chemi stry 04/10/2023 Chronic hepatic failure without coma 04/10/2023 Cyst of kidney, acquired 04/08/2023 Esophageal varices without bleeding 04/08/2023 Essential (primary) hypertension 04/08/2023 Portal hypertension 04/08/2023 Splenomegaly, not elsewhere classified Other ascites 04/08/2023 Cirrhosis 02/21/2023 Hypokalemia 02/19/2023 Disease of gallbladder, unspecified 01/01/2023 Nausea 01/01/2023 End-stage liver disease 11/02/2022 Encounter for pre-transplant evaluation for liver transplant 11/02/2022 Ascites due to alcoholic cirrhosis 11/02/2022 Alcohol use 11/02/2022 Abnormal LFTs 11/02/2022 Disease of stomach and duodenum, unspecified 09/2022 Other diseases of stomach and duodenum Calculus of gallbladder with out cholecystitis without obstruction 10/22/2022 Abdominal distension (gaseous) 08/22/2022 Chronic viral hepatitis C 08/19/2022 Urinary tract infection, site not specified 07/25 Acute bronchitis, unspecified 08/01/2022 High risk due to smoking 11/09/2015 Opiate dependence, continuous 11/09/2015 New onset seizure 07/12/2015 Encounters * This document contains information received from the source organization and may not represent a complete record from that organization. Date Type Department Care Team Description 05/09/2024 Travel 04/20/2024 Travel 04/11/2024 Travel 04/05/2024 Travel 03/16/2024 Travel 03/05/2024 Travel 02/25/2024 Travel 02/11/2024 Travel from Last 3 Months Immunizations Name Administration Dates Next Due Influenza, seasonal, injectable 04/19/2010 Family History 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 Relation Name Comments Arthritis Maternal Grandfather Aaron Hernández Diabetes Maternal Grandfather Aaron Hernández Arthritis Maternal Grandmother Gina hernández Autoimmune disease Sister Barby caal Epilepsy Sister Barby caal Relation Name Status Comments Maternal Grandfather Aaron Hernández Maternal Grandmother Gina hernández Sister Barby caal Social History Tobacco Use Types Packs/Day Years Used Date Smoking Tobacco: Former Cigarettes Q uit: 05/14/2019 Passive Smoke Exposure: Past Smokeless Tobacco: Never Tobacco Cessation:Counseling Given: Not Answered Alcohol Use Standard Drinks/Week Comments Not Currently 0 (1 standard drink = 0.6 oz pure alcohol) Last drink was first week of July 2023 PHQ-2 Answer Date Recorded Patient Health Questionnaire-2 Score 2 03/16/2024 PHQ-9 Answer Date Recorded Patient Health Questionnaire-9 Score 12 03/16/2024 PHQ-2A Answer Date Recorded Patient Health Questionnaire-2 Score 0 05/29/2023 Comments No Sex and Gender Information Value Date Recorded Sex Assigned at Not on file Legal Sex Female 6:24 PM EDT Gender Identity Not on file Sexual Orientation Not on file Last Filed Vital Signs Vital Sign Reading Time Taken Comments Blood Pressure 90/57 10/07/2023 9:43 AM EDT Pulse 111 10/07/2023 9:43 AM EDT Temperature 36.6 ??C (97.9 ??F) 10/07/2023 9:43 AM ED T Respiratory Rate 16 10/07/2023 9:43 AM EDT Oxygen Saturation 99% 10/07/2023 9:43 AM EDT Inhaled Oxygen Concentration - - Weight 65.5 kg (144 lb 6.4 oz) 10/07/2023 9:43 A M EDT Height 165.1 cm (5' 5 ) 10/07/2023 9:43 AM EDT Body Mass Index 24.03 10/07/2023 9:43 AM EDT Plan of Treatment Health Maintenance Due Date Last Done Comments [facility]-/Child/Adol SDOH Screenings 1990 [id number] Vaccine (#1) 1995 [facility]-Pneumococcal Vaccine: Pediatrics (0 to 5 Years) and At-Risk Patients (6 to 64 Years) (1 of 2 - PCV) 01/26/1996 [facility]-Varicella Vaccines (1 of 2 - 13+ 2-dose series) 2003 [facility]- SDOH Screenings 01/26/2008 [facility]-Adult SDOH Screenings 01/26/2008 [facility]-DTaP,Tdap,and Td Vaccines (1 - Tdap) 2009 [facility]-Hepatitis A Vaccines (1 of 2 - Risk 2-dose series) 2009 [facility]-Hepatitis B Vaccines (1 of 3 - 19+ 3-dose series) 2009 [facility]-Zoster Vaccines (1 of 2) 2009 [facility]-Pap Smear 2011 [facility]-Cervical Cancer Screening 01/26/2020 [facility]-HPV/Cotest 01/26/2020 [facility]-Influenza Vaccine (#1) 2024 04/19/2010 [facility]-Depression Screening 03/16/2025 024, 03/16/2024 [facility]-RSV Vaccine: 60+ Years or (1 - 1-dose 75+ series) 2065 [facility]-HIV Screening Completed 08/28/2023, 08/28/2023, 12/04/2015 [facility]-HIB Vaccines Aged Out No longer e ligible based on patient's age to complete this topic [facility]-HPV Vaccines Aged Out No longer e ligible based on patient's age to complete this topic [facility]-IPV Vaccines Aged Out No longer e ligible based on patient's age to complete this topic [facility]-Rotavirus Vaccines Aged Out No lo nger eligible based on patient's age to complete this topic Procedures Procedure Name Priority Date/Time Associated Diagnosis Comments ED PROTOCOL HIV 1/2 ANTIBODY/ANTIGEN SCREEN W/REFLEX TO HIV 1/2 ANTIBODY DIFFERENTIATION STAT 08/28/2023 11:39 AM EST from Last 3 Months or Most Recently Relevant to Health Maintenance Insurance [facility] MEDICAID [facility] MEDICAID Care Teams Riverboat Captain Relationship Specialty Start Date End Date Yonatan Graves DO [address] [place] [address] PCP - General 09/24/22 Adryan Bearden PA [address] [place] [id number] Referring Physician Gastroenterology 09/24/22
--- OUTSIDE RECORDS SUMMARY | 2024-05-11 18:30 | XMS_ITS | Encounter Summary ---
Author Organization [facility] Address [address] [place] [address] Care Team Providers Care Hand Winder Name Role Phone Yonatan Graves DO Primary Care Provider Farida Ortega BLUEBERRY GROWER Unavailable [phone] Source Comments This information has been disclosed [...] release of HIV test results or diagnoses. [id number] Health Encounter Details Date Type Department Care Team (Late st Contact Info) Description 09/02/2023 Chart Note [facility] Liver Transplant at [address], [address] [place] [address] Abdullahi Cano RN Referral for liver transplant was received and reviewed (with +/- MD). Social History Tobacco Use Types Packs/Day Years Used Date Smoking Tobacco: Never Assessed Comments No Sex and Gender Information Value Date Recorded Sex Assigned at Not on file Legal Sex Female 7:36 PM EDT Gender Identity Not on file Sexual Orientation Not on file documented as of this encounter Progress Notes * Abdullahi Cano RN - 09/02/2023 4:03 PM EDT Referral for liver transplant was received and reviewed (with +/- MD). The review notes that the patient has decompensated cirrhosis secondary to (alcohol (sobriety date: Jul, 2022) and treated HCV based on ascites (diueretic controlled) and hepatic encephalopathy. The calculated MELD score is 20. The referral will be entered and sent to Finance for INS approval. Liver transplant referral reviewed and patient meets program defined criteria for referral to pre-pre clinic due to the following Substance use within the past 6 months (based on self-report or positive toxicology for illicit substance (excluding marijuana)) documented in this encounter Plan of Treatment Not on file documented as of this encounter Visit Diagnoses Not on filedocumented in this encounter Care Teams Hand Winder Relationship Specialty Start Date End Date Yonatan Graves DO [address] [place] [address] PCP - General 09/02/23 Farida Ortega NP [address] [place] [address] Referring Physician Gastroenterology 09/02/23 documented as of this encounter
--- OUTSIDE RECORDS SUMMARY | 2024-05-11 18:30 | XMS_ITS | Encounter Summary ---
Author Organization [facility] Address [address] [place] [address] Care Team Providers Care Drop Wirer Name Role Phone Yonatan Graves DO Primary Care Provider Farida Ortega GRAIN SPOUTER Unavailable [phone] Source Comments This information has been disclosed [...] release of HIV test results or diagnoses. [id number] Encounter Details Date Type Department Care Team (Latest Contact Info) Description 09/05/2023 4:09 PM EDT - 09/05/2023 11:59 PM EDT Hospital Encounter [facility] Radiology at [facility] [address] [facility] [facility], [address] [place] [address] System, Provider Not In Discharge Disposition: Home or Self Care WITHOUT Home Care Services Social History Tobacco Use Types Packs/Day Years Used Date Smoking Tobacco: Never Assessed Comments No Sex and Gender Information Value Date Recorded Sex Assigned at Not on file Legal Sex Female 7:36 PM EDT Gender Identity Not on file Sexual Orientation Not on file documented as of this encounter Medications at Time of Discharge acamprosate (CAMPRAL) 333 mg tabletIndications :Cirrhosis of liver with ascites, unspecified hepatic cirrhosis type (CMS-HCC) Take 2 tablets (666 mg total) by mouth 3 times a day for 30 days. 180 tablet 09/02/2023 11:53 AM EDT 09/02/2023 09/08/2023 documented as of this encounter Plan of Treatment Not on file documented as of this encounter Procedures Procedure Name Priority Date/Time Associated Diagnosis Comments XR COMPARISON IMAGES Routine 09/05/2023 4:09 PM EDT documented in this encounter Results * X-ray Comparison Images (09/05/2023 4:09 PM EDT) Narrative EXTERNAL - 09/05/2023 4:09 PM EDT Images associated with this accession number were presented to us for comparison to an examination performed here. us Provider Not In System IMG DIAGNOSTIC IMAGING OR DERABLES Final Result EXTERNAL documented in this encounter Visit Diagnoses Not on filedocumented in this encounter Care Teams Drop Wirer Relationship Specialty Start Date End Date Yonatan Graves DO [address] [place] [address] PCP - General 09/02/23 Farida Ortega, GRAIN SPOUTER [address] [place] [address] Referring Physician Gastroenterology 09/02/23 documented as of this encounter
--- OUTSIDE RECORDS SUMMARY | 2024-05-11 18:30 | XMS_ITS | Encounter Summary ---
Author Organization [facility] Address [address] [place] [address] Care Team Providers Care Drone Software Development Engineer Name Role Phone Yonatan Graves DO Primary Care Provider Farida Ortega CUSTODIAN MANAGER Unavailable [phone] Source Comments This information has been disclosed [...] release of HIV test results or diagnoses. [id number] Reason for Visit * Reason Comments Labs Only Encounter Details Date Type Department Care Team (Late st Contact Info) Description 09/08/2023 10:20 AM EDT Specimen [facility] Outreach Lab [address] [facility] [address] [place] [id number] Agustin Hurt MD Decompensated hepatic cirrhosis ([facility]) Social History Tobacco Use Types Packs/Day Years Used Date Smoking Tobacco: Former Cigarettes 0.3 1 0 07/22/2014 - 07/22/2015 Smokeless Tobacco: Never Alcohol Use Standard Drinks/Week Comments Not Currently 0 (1 standard drink = 0.6 oz pur e alcohol) Comments No Sex and Gender Information Value Date Recorded Sex Assigned at Not on file Legal Sex Female 7:36 PM EDT Gender Identity Not on file Sexual Orientation Not on file documented as of this encounter Plan of Treatment Not on file documented as of this encounter Procedures Procedure Name Priority Date/Time Associated Diagnosis Comments PHOSPHATIDYLETHANOL CONFIRMATION, B Routine 09/08/2023 10:32 AM EDT Decompensated hepatic cirrhosis (CMS-HCC) HEPATIC FUNCTION PANEL Routine 10:32 AM EDT Decompensated hepatic cirrhosis (CMS-HCC) RENAL FUNCTION PANEL W/EGFR Routine 09/08/2023 10:32 AM EDT Decompensated hepatic cirrhosis (CMS-HCC) HEPATITIS C RNA, QUANTITATIVE REFLEX TO GENOTYPING Routine 09/08/2023 10:32 AM EDT Decompensated hepatic cirrhosis (CMS-HCC) AFP TUMOR MARKER Routine 09/08/2023 10:3 2 AM EDT Decompensated hepatic cirrhosis (CMS-HCC) PROTIME-INR Routine 09/08/2023 10:32 AM EDT Decompensated hepatic cirrhosis (CMS-HCC) CBC Routine 09/08/2023 10:32 AM EDT Decompensated hepatic cirrhosis (CMS-HCC) FOLATE Routine 09/08/2023 10:32 AM EDT Decompensated hepatic cirrhosis (CMS-HCC) documented in this encounter Results * Folate (Folic Acid) (09/08/2023 10:32 AM EDT) Folic Acid 19.00 5.90 - 24.80 ng/mL 09/08/2023 4:27 PM EDT [facility] Serum 09/08/2023 10:3 2 AM EDT 09/08/2023 3:36 PM EDT us Agustin Hurt MD LAB BLOOD ORDERABLES Final Res ult [facility] [address] [place] [address], [facility] * Phosphatidylethanol Confirmation, B (09/08/2023 10:32 AM EDT) PETH 16:0/18.1 (POPETH) <10 Cutoff: 10 ng/mL 09/11/2023 8:12 AM EDT [facility] Comment: Phosphatidylethanol (PEth) homologues result interpretation [...] PETH 16:0/18.2 (PLPETH) <10 Cutoff: 10 ng/mL 09/11/2023 8:12 AM EDT [facility] Comment: PEth 16:0/18:2 (PLPEth) Reference ranges are not well established PEth Interpretation Negative. 09/10 8:12 AM EDT [facility] Comment: ADDITIONAL INFORMATION This report is intended for use in clinical monitoring and management of patients. ??It is not intended for use in employment-related testing. This test was developed and its performance characteristics determined by [facility] in a manner consistent with CLIA requirements. This test has not been cleared or approved by the U.S. Food and Drug Administration. Test Performed by: [facility] - [address] [address] Skin Former: Uriel Dalton M.D. Ph.D.; CLIA# [id number] Whole Blood 09/08/2023 10:3 2 AM EDT 09/11/2023 8:12 AM EDT us Agustin Hurt MD LAB BLOOD ORDERABLES Final Res ult [facility] [address] [place] [address], [facility] * (ABNORMAL) Renal Function Panel w/EGFR (09/08/2023 10:32 AM EDT) Sodium 133 133 - 146 mmol/L 09/08/2023 2:41 PM EDT [facility] Potassium 4.1 3.5 - 5.3 mmol/L 09/08/2023 2:41 PM EDT [facility] Chloride 97(L) 98 - 110 mmol/L 09/08/2023 2:41 PM EDT [facility] CO2 28 21 - 33 mmol/L 09/08/2023 2:41 PM EDT [facility] Anion Gap 8 3 - 16 mmol/L 09/08/2023 2:41 PM EDT [facility] BUN 9 7 - 25 mg/dL 09/08/2023 2:41 PM EDT [facility] Creatinine 0.78 0.60 - 1.30 mg/dL 09/08/2023 2:41 PM EDT [facility] Glucose 84 70 - 100 mg/dL 09/08/2023 2:41 PM EDT [facility] Calcium 9.3 8.6 - 10.3 mg/dL 09/08/2023 2:41 PM EDT [facility] Phosphorus 4.2 2.1 - 4.7 mg/dL 09/08/2023 2:41 PM EDT [facility] Albumin 3.4(L) 3.5 - 5.7 g/dL 09/08/2023 2:41 PM EDT [facility] Osmolality, Calculated 274(L) 278 - 305 mOsm/kg 09/08/2023 2:41 PM EDT [facility] EGFR >90 09/08/2023 2:41 PM EDT [facility] Comment: As of 2021, the estimated GFR is calculated using the 2020 Chronic Kidney Disease Epidemiology Collaboration (CKD-EPI) equation. ??In line with the NKF-ASN Task Force Recommendations, this equation does not include a coefficient for race. ??A single eGFR value is calculated for each patient. The reference interval is >60 mL/min/1.73m2. ??eGFR values greater than 90 will be reported as >90mL/min/1.73m2. ??Reference: ??Usama C, Hernandez M, Chato DC, Suzy ND, Jyoti [place], Emergency Department Aide [place], et al. ??A Unifying Approach for GFR Estimation: Recommendations of the NKF-ASN Task Force on Reassessing the inclusion of Race in Diagnosing Kidney Disease. Am J Kidney Dis. 2020. GFR is estimated using creatinine, age, and sex. Patient's values should be interpreted as a trend. ?Below 90 mL/min/1.73m2, the patient may have renal disease. ?For additional information: ?? www.kidney.org Plasma 09/08/2023 10:3 2 AM EDT 09/08/2023 2:23 PM EDT us Agustin Hurt MD LAB BLOOD ORDERABLES Final Res ult [facility] [address] [facility] [place] [address], [facility] * (ABNORMAL) Hepatic Function Panel (09/08/2023 10:32 AM EDT) Total Bilirubin 7.3(H) 0.0 - 1.5 mg/dL 09/08/2023 2:41 PM EDT [facility] Bilirubin, Direct 2.76(H) 0.00 - 0.40 mg/dL 09/08/2023 2:41 PM EDT [facility] AST 47(H) 13 - 39 U/L 09/08/2023 2:41 PM EDT [facility] ALT 42 7 - 52 U/L 09/08/2023 2:41 PM EDT [facility] Alkaline Phosphatase 139(H) 36 - 125 U/L 09/08/2023 2:41 PM EDT [facility] Total Protein 7.2 6.4 - 8.9 g/dL 09/08/2023 2:41 PM EDT [facility] Albumin 3.4(L) 3.5 - 5.7 g/dL 09/08/2023 2:41 PM EDT [facility] Bilirubin, Indirect 4.54(H) 0.00 - 1.10 mg/dL 09/08/2023 2:41 PM EDT [facility] Plasma 09/08/2023 10:3 2 AM EDT 09/08/2023 2:23 PM EDT Agustin Hurt MD LAB BLOOD ORDERABLES Final Res ult [facility] [address] [facility]. [address] * Hepatitis C RNA, Quant Reflex to Genotyp (09/08/2023 10:32 AM EDT) Pathologist [facility] [place] International Units Not Detected IU/mL 09/11/2023 10:30 AM EDT [facility] Comment:Test methodology for HCV RNA quantification is an FDA-approved nucleic acid amplification assay. The Lower Limit of Quantitation (LLOQ) is 15 IU/mL. The linear range of the assay is 15-100,000,000 IU/mL. The Limit of Detection (LoD) is 12.0 IU/mL for EDTA plasma. The reference range is Not Detected. IU log10 See Note log 10 IU/mL 09/11/2023 10:30 AM EDT [facility] Comment:HCV RNA not detected . Plasma 09/08/2023 10:3 2 AM EDT 09/08/2023 3:14 PM EDT Agustin Hurt MD LAB BLOOD ORDERABLES Final Res ult Performing Organization Address [facility] Co de Phone Number [facility] [address] [place] [facility]. [address] * (ABNORMAL) AFP tumor marker (09/08/2023 10:32 AM EDT) [facility] AFP-Tumor Marker 9.7(H) 0.0 - 9.0 ng/mL 09/08/2023 4:08 PM EDT [facility] Serum 09/08/2023 10:3 2 AM EDT 09/08/2023 3:36 PM EDT Narrative [facility] - 09/08/2023 4:08 PM EDT The testing method for AFP is a chemiluminescent immunoassay manufactured by [employer] Concentrations of AFP obtained by different assay methods or kits may vary and cannot be used interchangeably. AFP results cannot be interpreted as absolute evidence of the presence or absence of malignant disease. us Agustin Hurt MD LAB BLOOD ORDERABLES Final Res ult Performing Organization Address [facility] Co de Phone Number [facility] [address] * (ABNORMAL) Protime-INR (09/08/2023 10:32 AM EDT) Pathologist [facility] [place] Protime 17.9(H) 12.1 - 15.1 seconds 09/08/2023 2:36 PM EDT [facility] INR 1.4(H) 0.9 - 1.1 09/08/2023 2:36 PM EDT [facility] Comment: RECOMMENDED THERAPEUTIC RANGES USING INR : ?Stable oral anticoagulant therapy: ? 2.0 - 3.0 ?Mechanical prosthetic heart valve: ? 2.5 - 3.5 ?Recurrent acute myocardial infarction: ? 2.5 - 3.5 Plasma 09/08/2023 10:3 2 AM EDT 09/08/2023 2:20 PM EDT us Agustin Hurt MD LAB BLOOD ORDERABLES Final Res ult Performing Organization Address [facility] Co de Phone Number [facility] [address] [place] [address], [facility] * (ABNORMAL) CBC (09/08/2023 10:32 AM EDT) WBC 7.6 3.8 - 10.8 10E3/uL 09/08/2023 2:40 PM EDT [facility] RBC 3.36(L) 3.80 - 5.10 10E6/uL 09/08/2023 2:40 PM EDT [facility] Hemoglobin 13.0 11.7 - 15.5 g/dL 09/08/2023 2:40 PM EDT [facility] Hematocrit 36.6 35.0 - 45.0 % 09/08/2023 2:40 PM EDT [facility] MCV 109.1(H) 80.0 - 100.0 fL 09/08/2023 2:40 PM EDT [facility] MCH 38.7(H) 27.0 - 33.0 pg 09/08/2023 2:40 PM EDT [facility] MCHC 35.5 32.0 - 36.0 g/dL 09/08/2023 2:40 PM EDT [facility] RDW 16.3(H) 11.0 - 15.0 % 09/08/2023 2:40 PM EDT [facility] Platelets 117(L) 140 - 400 10E3/uL 09/08/2023 2:40 PM EDT [facility] MPV 10.2 7.5 - 11.5 fL 09/08/2023 2:40 PM EDT [facility] Whole Blood 09/08/2023 10:3 2 AM EDT 09/08/2023 2:22 PM EDT us Agustin Hurt MD LAB BLOOD ORDERABLES Final Res ult [facility] [address] documented in this encounter Visit Diagnoses Diagnosis Decompensated hepatic cirrhosis ([facility]) documented in this encounter Care Teams Drone Software Development Engineer Relationship Specialty Start Date End Date Yonatan Graves DO [address] [place] [address] PCP - General 09/02/23 Farida Ortega, CUSTODIAN MANAGER [address] [place] [address] Referring Physician Gastroenterology 09/02/23 documented as of this encounter
--- OUTSIDE RECORDS SUMMARY | 2024-05-11 18:30 | XMS_ITS | Encounter Summary ---
Author Organization [facility] Address [facility] [place] [address] Care Team Providers Care Electrical Journeyman Name Role Phone Yonatan Graves DO Primary Care Provider Farida Ortega CULTURE MEDIA LABORATORY ASSISTANT Unavailable [phone] Source Comments This information has been disclosed [...] release of HIV test results or diagnoses. [id number] Reason for Referral * Imaging/Cardiovascular Scan (Routine) - Closed Specialty Diagnoses / Procedures Referred By Roselyn mccollum Referred To Contact Radiology Diagnoses Decompensated hepatic cirrhosis (CMS-HCC) Procedures MRI Abdomen W and WO contrast Agustin Hurt MD Referral ID Status Reason Start Date Expiration Date Visits Re quested Visits Authorized [id number] Closed 09/08/2023 03/06/2024 1 1 Reason for Visit * Reason Comments Cirrhosis * Physician/STEVEN (Routine) - Closed Specialty Diagnoses / Procedures Referred By Contac t Referred To Contact [facility] Gastroenterology Diagnoses Cirrhosis of liver with ascites, unspecified hepatic cirrhosis type (CMS-HCC) Hilda Shepherd MD [address] [place] [address] Phone: tel: fax: Referral ID Status Reason Start Date Expiration Date Visits Re quested Visits Authorized [id number] Closed 09/02/2023 02/29/2024 1 1 Encounter Details Date Type Department Care Team (Latest Contact Info) Description 09/08/2023 9:00 AM EDT Office Visit [facility] Gastroenterology at [facility] [place] Office [address] [facility], [address] [place] [phone] Agustin Hurt MD Decompensated hepatic cirrhosis (CMS-HCC) (Primary Dx); 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) [...] Sign Reading Time Taken Comments Blood Pressure 94/61 09/08/2023 9:04 AM EDT Pulse 64 09/08/2023 9:04 AM EDT Temperature - - Respiratory Rate - - Oxygen Saturation 100% 09/08/2023 9:04 AM EDT Inhaled Oxygen Concentration 100% 09/08/2023 9 :04 AM EDT Weight 62.6 kg (138 lb) 09/08/2023 9:04 AM EDT Height 165.1 cm (5' 5 ) 09/08/2023 9:04 AM EDT Body Mass Index 22.96 09/08/2023 9:04 AM EDT documented in this encounter Patient Instructions * Patient Instructions* Agustin Hurt MD - 09/08/2023 9:00 AM EDT Labs today Continue lasix 60 mg twice a day Continue spironolactone 150 mg twice a day Will monitor electrolytes MRI in 2 months same time as office visit Egd locally Follow up with txp SW Return to clinic in 2 months documented in this encounter Progress Notes * Agustin Hurt MD - 09/08/2023 9:00 AM EDT Hepatology Clinic Note Name: Mindy Martins CSN: [id number] Referring Physician: Hilda Shepherd MD Chief Complaint: Decompensated cirrhosis due to alcohol and hepatitis C History of Present Illness: Mindy Martins is a 33 y.o. 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 She contracted hepatitis C from prior IV drug use with last use in 2016. Is unclear as to how long she had chronic hepatitis C before she was treated. She states that sheintended rehabilitation and was on Suboxone. She was doing well up until July 2022 when she started to feel more fatigued and developed nausea and ultimately developed jaundice. Because of this she sought medical attention and was diagnosed with liver disease. She then saw [facility] transplant center in October 2022 for [...] social work. Patient was evaluated by transplant social media executive at in December 2022, where it was felt that there was a discrepancy with how much alcohol the patient was reporting compared to the Peth test. The patient initially reported drinking 4 to 5 glasses of wine weekly, 1 drink in December 2022 with PET in October 2022 of 1162/629. Peth 12/27/22 was higher, 1299/755, suggesting discrepancy in reported alcohol use and lab supported use. She unfortunately continued drinking until Jul 2023 and then underwent detox at [facility] The patient states that she used to only socially drink alcohol and alcohol use started maybe 5 years ago. She said over the time she started to increase her alcohol intake up to 6 wine coolers a day. From the social work at [facility] it was felt that the patient [...] LI-RADS 3 lesion and a 6 mm lie RADS 3 lesion within the liver. She had [...] EV or GV. 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 Past 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 Past 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: Diagnosis Date Alcoholic hepatitis Anxiety Ascites Cirrhosis (CMS-HCC) Cystitis Depression Hepatitis C Past Surgical History Past Surgical History: Procedure Laterality Date APPENDECTOMY CYST REMOVAL Right had a cystic lesion under right breast with hematoma and cyst per patient which was removed UPPER GASTROINTESTINAL ENDOSCOPY 09/21/2022 Family History Family History Problem Relation Age of Onset Liver disease Father Cirrhosis Father Social History Social History Tobacco Use Smoking status: Not on file Smokeless tobacco: Not on file Substance Use Topics Alcohol use: Not on file Medications Current Medications as of 09/08/2023 10:35 AM Outpatient Medications Quantity Refills Start End furosemide (LASIX) 40 MG tablet -- -- -- gabapentin (NEURONTIN) 300 MG capsule -- -- -- hydrOXYzine HCL (ATARAX) 25 MG tablet -- -- -- propranoloL (INDERAL) 10 MG tablet -- -- -- spironolactone (ALDACTONE) 100 MG tablet -- -- -- acamprosate (CAMPRAL) 333 mg tablet (Discontinued) 180 tablet 0 09/02/2023 09/08/2023 FUROSEMIDE 10 MG/ML INFUSION (LASIX) (Discontinued) -- -- 09/08/2023 spironolactone (ALDACTONE) (Discontinued) -- -- 09/08/2023 Allergies Allergies Allergen Reactions Amoxicillin Rash Morphine Rash Penicillins Rash Vitals: Vitals: 09/08/23 0904 BP: 94/61 Pulse: 64 SpO2: 100% Physical Exam Gen: Well-developed, well nourished. No acute distress. HEENT: Mucous membranes pink/moist. + scleral icterus. Neck: Neck is supple. No tracheal deviation. No cervical lymphadenopathy. CV: Regular rate and rhythm. Normal S1 and S2. No murmurs/rubs/gallops. Lungs: Clear to auscultation bilaterally. No wheezes/rales/rhonchi. No respiratory distress. Abdomen: Soft, non-tender, non-distended stomach no hepatosplenomegaly or palpable masses. Bowel sounds present. + ascites present. No rebound or guarding present. [...] Laboratory: Lab Results Component Value Date WBC 10.0 09/01/2023 HGB 12.1 09/01/2023 HCT 34.5 (L) 09/01/2023 MCV 108.8 (H) 09/01/2023 PLT 139 (L) 09/01/2023 Lab Results Component Value Date NA 135 09/01/2023 K 3.9 09/01/2023 CL 101 09/01/2023 CO2 29 09/01/2023 BUN 13 09/01/2023 CREATININE 0.84 09/01/2023 GLUCOSE 91 09/01/2023 CALCIUM 8.8 09/01/2023 PHOS 3.4 09/01/2023 Lab Results Component Value Date AST 72 (H) 09/01/2023 ALT 47 09/01/2023 BILITOT 5.1 (H) 09/01/2023 BILIDIRECT 2.1 (H) 09/01/2023 PROT 6.3 (L) 09/01/2023 ALBUMIN 2.9 (L) 09/01/2023 ALKPHOS 111 09/01/2023 Lab Results Component Value Date INR 1.7 (H) 09/01/2023 No results found for: HAV , HEPAIGM [...] the past 2079 hour(s)). Assessment/Plan: MELD 3.0: 22 at 09/01/2023 10:37 PM Calculated from: Serum Creatinine: 0.84 mg/dL (Using min of 1 mg/dL) at 09/01/2023 10:37 PM Serum Sodium: 135 mmol/L at 09/01/2023 10:37 PM Total Bilirubin: 5.1 mg/dL at 09/01/2023 10:37 PM Serum Albumin: 2.9 g/dL at 09/01/2023 10:37 PM INR(ratio): 1.7 at 09/01/2023 10:37 PM Age at listing (hypothetical): 33 years Sex: Female at 09/01/2023 10:37 PM Mindy Martins is an 33 y.o. female with complex [...] a contributor in her liver disease. Her parents have been positive since last year along with a positive se rum alcohol level in July 2023 after which she intended a detoxification program. She states that she has been sober since July 2023. She is following up with Dr. Guajardo to help with management of her anxiety and depression - Chronic HCV: Status posttreatment with Sarah in 2018 with SVR. Will repeat PCR today - Ascites: Patient was counseled on adhering to a 2g low sodium diet. Will continue lasix 60 mg BIDand aldactone 150 mg BID. She states that she self increased her diuretics a few weeks ago because of issues with her volume overload and because of that has lost 20 pounds with improvement in her volume status. She is already had a diagnostic paracentesis and states that previously when the try todo a therapeutic it was very difficult for them to find a safe window. Her fluid studies are consistent with portal hypertension. Will monitor what her electrolytes do today and consider adjustment of her diuretics. - Hepatic Encephalopathy: No issues with overt [...] nature and could be possible LR 4. Will plan to repeat an MRI in October2023 for further characterization - Immunizations: Immune to Hepatitis A . [...] disease in the last year. I would defer to do social work note at forfurther details. Her PeTHs have been extremely high. Based on the evaluation from transplant socialworker at it was felt that the patient did not have insight into her alcohol use and her and herhusband did not feel that alcohol contributed to her liver disease. Today, they tell me that alcohol was a factor in the development of her liver disease and they are committed to sobriety. They willcontinue to follow-up with Dr. Guajardo for management of anxiety and depression. She is due to seeour transplant social media executive at on September 24. I hope that with sobriety from alcohol the patient'sMELD score and decompensations should start to improve. If despite sobriety anytime the patient's MELD score and decompensations do not improve then we could consider transplant as a backup option ifthe patient is found to be a transplant candidate based on the psychosocial evaluation. RTC in 2 mos This note was completely edited, written [...] liver pathology. Agustin Hurt MD Transplant Hepatology [phone] (p) documented in this encounter Plan of Treatment Not on file documented as of this encounter Results * Ceruloplasmin (02/04/2024 4:00 PM EDT) Ceruloplasmin 25.6 18.0 - 58.0 mg/dL 02/04/2024 5:44 PM EDT [facility] Comment: Effective 03/25/2016: The units for ceruloplasmin have changed from mg/L to mg/dL. The new reference range is 18-58 mg/dL. ??Historical values can be converted from mg/L to mg/dL by dividing by a factor of 10. Serum 02/04/2024 4:00 PM EDT 02/04/2024 5:13 PM EDT Agustin Hurt MD LAB BLOOD ORDERABLES Final Res ult Performing Organization Address [facility] Co de Phone Number [facility] [address] [facility]. [address] * Ferritin (02/04/2024 4:00 PM EDT) Ferritin 150.9 11.0 - 306.8 ng/mL 02/04/2024 5:58 PM EDT [facility] Serum 02/04/2024 4:00 PM EDT 02/04/2024 5:13 PM EDT Agustin Hurt MD LAB BLOOD ORDERABLES Final Res ult Performing Organization Address [facility] Co de Phone Number [facility] [address] [facility]. [address] * (ABNORMAL) Iron Studies (Iron + TIBC) (02/04/2024 4:00 PM EDT) Iron 214(H) 50 - 212 ug/dL 02/04/2024 5:42 PM EDT [facility] % Iron Saturation 57.5(H) 15.0 - 55.0 % 02/04/2024 5:42 PM EDT [facility] TIBC 372 265 - 497 ug/dL 02/04/2024 5:42 PM EDT [facility] Serum 02/04/2024 4:00 PM EDT 02/04/2024 5:15 PM EDT Agustin Hurt MD LAB BLOOD ORDERABLES Final Res ult Performing Organization Address [facility] Co de Phone Number [facility] [address] [facility]. [address] * [id number] (02/04/2024 4:00 PM EDT) A-1 Antitrypsin 180.0 84.0 - 218.0 mg/dL 02/04/2024 5:44 PM EDT [facility] Serum 02/04/2024 4:00 PM EDT 02/04/2024 5:13 PM EDT us Agustin Hurt MD LAB BLOOD ORDERABLES Final Res ult [facility] [address] [facility] [place] [address], [facility] * MRI Abdomen W and WO contrast [...] mL of GADOBUTROL 1 MMOL/ML INTRAVENOUS SYRINGE ([facility]) administered intravenously COMPARISON: Outside study dated 08/18/2023 [...] mL of GADOBUTROL 1 MMOL/ML INTRAVENOUS SYRINGE ([facility])administered intravenously COMPARISON: Outside study dated 08/18/2023 and [...] Rushing MD at 02/04/2024 5:16 PM EDT us Agustin Hurt MD IMG MRI ORDERABLES Final Resul t * Folate (Folic Acid) (09/08/2023 10:32 AM EDT) Folic Acid 19.00 5.90 - 24.80 ng/mL 09/08/2023 4:27 PM EDT [facility] Serum 09/08/2023 10:3 2 AM EDT 09/08/2023 3:36 PM EDT us Agustin Hurt MD LAB BLOOD ORDERABLES Final Res ult [facility] [address] [place], [place] [address] * Phosphatidylethanol Confirmation, B (09/08/2023 10:32 AM EDT) PETH 16:0/18.1 (POPETH) <10 Cutoff: 10 ng/mL 09/11/2023 8:12 AM EDT [facility] Comment: Phosphatidylethanol (PEth) homologues result interpretation [...] 09/11/2023 8:12 AM EDT [facility] Comment: PEth 16:0/18:2 (PLPEth) Reference ranges are not well established PEth Interpretation Negative. 09/10 8:12 AM EDT [facility] Comment: ADDITIONAL INFORMATION This report is intended for use in clinical monitoring and management of patients. ??It is not intended for use in employment-related testing. This test was developed and its performance characteristics determined by [facility] in a manner consistent with CLIA requirements. This test has not been cleared or approved by the U.S. Food and Drug Administration. Test Performed by: [facility] [address] [place] [address] Jeep Mechanic: Uriel Dalton M.D. Ph.D.; CLIA# [id number] Whole Blood 09/08/2023 10:3 2 AM EDT 09/11/2023 8:12 AM EDT us Agustin Hurt MD LAB BLOOD ORDERABLES Final Res ult [facility] [address] [facility] [place] [address], [facility] * (ABNORMAL) Renal Function Panel w/EGFR (09/08/2023 10:32 AM EDT) Sodium 133 133 - 146 mmol/L 09/08/2023 2:41 PM EDT [facility] Potassium 4.1 3.5 - 5.3 mmol/L 09/08/2023 2:41 PM EDT [facility] Chloride 97(L) 98 - 110 mmol/L 09/08/2023 2:41 PM EDT [facility] CO2 28 21 - 33 mmol/L 09/08/2023 2:41 PM EDT [facility] Anion Gap 8 3 - 16 mmol/L 09/08/2023 2:41 PM EDT [facility] BUN 9 7 - 25 mg/dL 09/08/2023 2:41 PM EDT [facility] Creatinine 0.78 0.60 - 1.30 mg/dL 09/08/2023 2:41 PM EDT [facility] Glucose 84 70 - 100 mg/dL 09/08/2023 2:41 PM EDT [facility] Calcium 9.3 8.6 - 10.3 mg/dL 09/08/2023 2:41 PM EDT [facility] Phosphorus 4.2 2.1 - 4.7 mg/dL 09/08/2023 2:41 PM EDT [facility] Albumin 3.4(L) 3.5 - 5.7 g/dL 09/08/2023 2:41 PM EDT [facility] Osmolality, Calculated 274(L) 278 - 305 mOsm/kg 09/08/2023 2:41 PM EDT [facility] EGFR >90 09/08/2023 2:41 PM EDT [facility] Comment: As of 2021, the estimated [...] will be reported as >90mL/min/1.73m2. ??Reference: ??Usama Ruiz, Hernandez M, Chato DC, Suzy ND, Jyoti GARDUNO, Nas LINARES, et al. ??A Unifying Approach for GFR [...] MD LAB BLOOD ORDERABLES Final Res ult [facility] [address] [facility] [place] [address], [facility] * (ABNORMAL) Hepatic Function Panel (09/08/2023 10:32 AM EDT) Total Bilirubin 7.3(H) 0.0 - 1.5 mg/dL 09/08/2023 2:41 PM EDT [facility] Bilirubin, Direct 2.76(H) 0.00 - 0.40 mg/dL 09/08/2023 2:41 PM EDT [facility] AST 47(H) 13 - 39 U/L 09/08/2023 2:41 PM EDT [facility] ALT 42 7 - 52 U/L 09/08/2023 2:41 PM EDT [facility] Alkaline Phosphatase 139(H) 36 - 125 U/L 09/08/2023 2:41 PM EDT [facility] Total Protein 7.2 6.4 - 8.9 g/dL 09/08/2023 2:41 PM EDT [facility] Albumin 3.4(L) 3.5 - 5.7 g/dL 09/08/2023 2:41 PM EDT [facility] Bilirubin, Indirect 4.54(H) 0.00 - 1.10 mg/dL 09/08/2023 2:41 PM EDT [facility] Plasma 09/08/2023 10:3 2 AM EDT 09/08/2023 2:23 PM EDT us Agustin Hurt MD LAB BLOOD ORDERABLES Final Res ult [facility] [address] * Hepatitis C RNA, Quant Reflex to Genotyp (09/08/2023 10:32 AM EDT) International Units Not Detected IU/mL 09/11/2023 10:30 AM EDT [facility] Comment:Test methodology for HCV RNA quantification is an FDA-approved nucleic acid amplification assay. The Lower Limit of Quantitation (LLOQ) is 15 IU/mL. The linear range of the assay is 15-100,000,000 IU/mL. The Limit of Detection (LoD) is 12.0 IU/mL for EDTA plasma. The reference range is Not Detected. IU log10 See Note log 10 IU/mL 09/11/2023 10:30 AM EDT [facility] Comment:HCV RNA not detected . Plasma 09/08/2023 10:3 2 AM EDT 09/08/2023 3:14 PM EDT Agustin Hurt MD LAB BLOOD ORDERABLES Final Res ult Performing Organization Address [facility] Co de Phone Number [facility] [address] [facility]. [address] * (ABNORMAL) AFP tumor marker (09/08/2023 10:32 AM EDT) Pathologist [facility] AFP-Tumor Marker 9.7(H) 0.0 - 9.0 ng/mL 09/08/2023 4:08 PM EDT [facility] Serum 09/08/2023 10:3 2 AM EDT 09/08/2023 3:36 PM EDT Narrative [facility] - 09/08/2023 4:08 PM EDT The testing method for AFP is a chemiluminescent immunoassay manufactured by [employer] Concentrations of AFP obtained by different assay methods or kits may vary and cannot be used interchangeably. AFP results cannot be interpreted as absolute evidence of the presence or absence of malignant disease. Agustin Hurt MD LAB BLOOD ORDERABLES Final Res ult Performing Organization Address [facility] de Phone Number [facility] [address] * (ABNORMAL) Protime-INR (09/08/2023 10:32 AM EDT) Pathologist [facility] Protime 17.9(H) 12.1 - 15.1 seconds 09/08/2023 2:36 PM EDT [facility] INR 1.4(H) 0.9 - 1.1 09/08/2023 2:36 PM EDT [facility] Comment: RECOMMENDED THERAPEUTIC RANGES USING INR : ?Stable oral anticoagulant therapy: ? 2.0 - 3.0 ?Mechanical prosthetic heart valve: ? 2.5 - 3.5 ?Recurrent acute myocardial infarction: ? 2.5 - 3.5 Plasma 09/08/2023 10:3 2 AM EDT 09/08/2023 2:20 PM EDT Agustin Hurt MD LAB BLOOD ORDERABLES Final Res ult Performing Organization Address City/State/[facility] Co de Phone Number [facility] [address] [place], [place] [address] * (ABNORMAL) CBC (09/08/2023 10:32 AM EDT) WBC 7.6 3.8 - 10.8 10E3/uL 09/08/2023 2:40 PM EDT [facility] RBC 3.36(L) 3.80 - 5.10 10E6/uL 09/08/2023 2:40 PM EDT [facility] Hemoglobin 13.0 11.7 - 15.5 g/dL 09/08/2023 2:40 PM EDT [facility] Hematocrit 36.6 35.0 - 45.0 % 09/08/2023 2:40 PM EDT [facility] MCV 109.1(H) 80.0 - 100.0 fL 09/08/2023 2:40 PM EDT [facility] MCH 38.7(H) 27.0 - 33.0 pg 09/08/2023 2:40 PM EDT [facility] MCHC 35.5 32.0 - 36.0 g/dL 09/08/2023 2:40 PM EDT [facility] RDW 16.3(H) 11.0 - 15.0 % 09/08/2023 2:40 PM EDT [facility] Platelets 117(L) 140 - 400 10E3/uL 09/08/2023 2:40 PM EDT [facility] MPV 10.2 7.5 - 11.5 fL 09/08/2023 2:40 PM EDT [facility] Whole Blood 09/08/2023 10:3 2 AM EDT 09/08/2023 2:22 PM EDT us Agustin Hurt MD LAB BLOOD ORDERABLES Final Res ult [facility] [address] [place] [id number], [facility] documented in this encounter Visit Diagnoses Diagnosis Decompensated hepatic cirrhosis (CMS-HCC)- Primary 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) Decompensated hepatic cirrhosis (CMS-HCC) Decompensated hepatic cirrhosis (CMS-HCC) documented in this encounter Care Teams Electrical Journeyman Relationship Specialty Start Date End Date Yonatan Graves DO [address] [place] [address] PCP - General 09/02/23 Farida Ortega, CULTURE MEDIA LABORATORY ASSISTANT [address] [place] [address] Referring Physician Gastroenterology 09/02/23 documented as of this encounter
--- OUTSIDE RECORDS SUMMARY | 2024-05-11 18:30 | XMS_ITS | Encounter Summary ---
Author Organization [facility] Address [address] [place] [id number] Care Team Providers Care Parking Line Painter Name Role Phone Yonatan Graves DO Primary Care Provider Farida Ortega RADAR REPAIRER Unavailable [phone] Source Comments This information has been disclosed [...] release of HIV test results or diagnoses. [id number] Health Encounter Details Date Type Department Care Team (Late st Contact Info) Description 09/02/[address] [facility] Liver Transplant at [address], [address] [place] [address] Kelly Silverio MA Social History Tobacco Use Types Packs/Day Years [...] on filedocumented in this encounter Care Teams Parking Line Painter Relationship Specialty Start Date End Date Yonatan Graves DO [address] [place] [address] PCP - General 09/02/23 Farida Ortega, RADAR REPAIRER [address] [place] [id number] Referring Physician Gastroenterology 09/02/23 documented as of this encounter
--- OUTSIDE RECORDS SUMMARY | 2024-05-11 18:30 | XMS_ITS | Encounter Summary ---
Author Organization [facility] Address [address] [place] [address] Care Team Providers Care Supervisor [employer] Name Role Phone Unknown, Attending Provider Primary Care Provide r Unavailable Yonatan Graves DO Primary Care Provider Farida Ortega [employer]BILE SERVICE RV TECHNICIAN Unavailable [phone] Source Comments This information has been disclosed [...] release of HIV test results or diagnoses. [id number] Reason for Referral * Physician/STEVEN (Routine) - Closed Specialty Diagnoses / Procedures Referred By Contac t Referred To Contact [facility] Gastroenterology Diagnoses Cirrhosis of liver with ascites, unspecified hepatic cirrhosis type ([facility]) Hilda Shepherd MD [address] [place] [address] Phone: tel: fax: Referral ID Status Reason Start Date Expiration Date Visits Re quested Visits Authorized [id number] Closed 09/02/2023 02/29/2024 1 1 Scheduling Instructions For appointments, please call [phone]. Reason for Visit * Reason Comments Leg Swelling Bilateral Bloating Chest Pain Shortness of Breath Encounter Details Date Type Department Care Team ([facility] Contact Info) Description 09/01/2023 10:00 PM EDT - 09/02/2023 2:40 PM EDT Emergency [facility] Emergency Department [address] [place] [address] Sammi Carney MD [address] [place] [phone] Cirrhosis of liver with ascites, unspecified hepatic cirrhosis type (CMS-HCC) (Primary Dx) Discharge Disposition: Home or Self Care WITHOUT [...] Sign Reading Time Taken Comments Blood Pressure 95/69 09/02/2023 12:06 PM EDT Pulse 58 09/02/2023 12:06 PM EDT Temperature 37.1 ??C (98.7 ??F) 09/02/2023 7:40 AM ED T Respiratory Rate 18 09/02/2023 12:06 PM EDT Oxygen Saturation 98% 09/02/2023 12:06 PM EDT Inhaled Oxygen Concentration 98% 09/02/2023 1 2:06 PM EDT Weight - - Height - - Body Mass Index - - documented in this encounter Discharge Instructions * Attachments The following attachments cannot be sent through Care Everywhere. * Ascites (Russian) * Paracentesis Care After (Russian) documented in this encounter Medications at Time of Discharge acamprosate (CAMPRAL) 333 mg tabletIndications :Cirrhosis of liver with ascites, unspecified hepatic cirrhosis type (CMS-HCC) Take 2 tablets (666 mg total) by mouth 3 times a day for 30 days. 180 tablet 09/02/2023 11:53 AM EDT 09/02/2023 09/08/2023 documented as of this encounter Progress Notes * Catracho Tate - 09/02/2023 10:01 AM EDT Community Health Work (CHW) Patient Declines Services Patient: Mindy Wade : 1990 Date: 09/02/2023 Intervention Summary Met with Mindy in person and explained the role of the Community Health Worker. I informed the patient of the needs assessment and they declined assistance at this time. Provided the patient with contact information to reach out to the Community Health Workers should they choose to have assistance in the future. At this time, we will not have subsequent follow-up until the patient reaches out and expresses interest in assistance. KATHERYN Louise Community Health Worker [place] [id number] P: E: [email or web address] * Hilda Shepherd MD - 09/01/2023 7:36 PM EDT [facility] ED Reassessment Note Mindy Wade is a 33 y.o. female who presented to the emergency department on 09/01/2023. This patient was initially seen by an off-going provider and their care has been turned over to me. Please see the original provider's note for details regarding the initial history, physical exam and ED course. At the time of turnover the following steps in the patient's evaluation were pending: - paracentesis Patient with history of cirrhosis, no clear etiology as yet, follows mostly in recent [place] howeverwould like to follow at . Patient presenting for increased lower extremity edema, also complaining of right upper quadrant pain. Patient already on spironolactone and Lasix. Paracentesis performed at bedside. Fluid studies not concerning for SBP. Patient stable for discharge home. Given referral for hepatology at . Discussed return precautions. Patient understands. Clinical Impression: 1. cirrhosis Cosigned by Uriel Noel MD at 09/02/2023 5:56 PM EDT * Sammi Carney MD - 09/01/2023 7:36 PM EDT ED Attending Attestation Note Date of service: 09/01/2023 This patient was seen by the resident physician. I have seen and examined the patient, agree with the workup, evaluation, management and diagnosis. The care plan has been discussed and I concur. I have reviewed the ECG and concur with the resident's interpretation. My assessment reveals a 33 y.o. female presenting with abdominal bloating and leg swelling. Patientreports abdominal discomfort. On exam, patient resting comfortably. Normal rate, regular rhythm. Easy work of breathing. Normal oxygen saturation on room air. Patient with trace edema in bilateral lower extremity. * Uriel Noel MD - 09/01/2023 7:36 PM EDT I was present that the performance of the ultrasound facilitated paracentesis by the resident. documented in this encounter H&P Notes * Maeve Rizo MD - 09/01/2023 7:36 PM EDT [facility] ED Note Date of Service: 09/01/2023 Reason for Visit: Leg Swelling (Bilateral), Bloating, Chest Pain, and Shortness of Breath Patient History EWA Wade is a 33 y.o. 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 She denies any fevers, hematochezia, hemoptysis, or melena. She has occasional diarrhea that is unchanged. She notesshe bruises easily at baseline and that is unchanged. She is urinating normally without any dysuria, anuria, or urinary complaints. She is able to walk without difficulty. Regarding her cirrhosis, she is currently receiving treatment at but is unhappy with the treatment and would like to establish care at . She was reportedly diagnosed 1 year ago and states it wasthought to be autoimmune at that time. However, she also reports a history of HCV now in remission and a history of alcohol use, reporting 4 drinks/day every day for years. She would get withdrawal symptoms but quit drinking 2 months ago. She notes her father had a liver transplant; at the time it was attributed to fatty liver but she states she was later told it may be autoimmune, although it was never worked up. She also complains of a few days of left-sided stabbing chest pain and shortness of breath. She feels the shortness of breath is related to the pain. The pain occurs with deep breaths and any movement of her body, including twisting or moving. No past medical history on file. No past surgical history on file. Patient has no history on file for tobacco use, alcohol use, and drug use. Previous Medications No medications on file Allergies: Allergies as of 09/01/2023 - Fully Reviewed 09/01/2023 Allergen Reaction Noted Amoxicillin Rash 09/01/2023 Morphine Rash 12/08/2017 Penicillins Rash 06/06/2015 Review of Systems For patients able to communicate, pertinent positive and negative findings are documented in the HPI. Physical Exam Vitals: 09/02/23 0347 09/02/23 0504 09/02/23 0646 09/02/23 0740 BP: 130/72 101/41 110/61 129/69 BP Location: Right upper arm Right upper arm Right upper arm Right upper arm Patient Position: Lying Lying Lying Lying Pulse: 58 56 Resp: 18 Temp: 98.7 ??F (37.1 ??C) TempSrc: Oral SpO2: 100% 94% 93% 97% General: Resting comfortably in no acute distress; nontoxic appearing. HEENT: Normocephalic/atraumatic; moist mucus membranes; no oropharyngeal edema; no pharyngeal erythema or exudate; sclera mildly icteric; no conjunctival pallor; PERRLA Neck: Supple, normal ROM and posture Pulmonary: No respiratory distress; normal work of breathing; lungs clear to auscultation bilaterally. Cardiac: Regular rhythm; normal rate; no murmurs / rubs / gallops; reproducible TTP over left anterior chest wall. Abdomen: Soft, protuberant, +tympanitic with shifting dullness, mild RUQ TTP; no rebound or guarding. No CVA tenderness Extremities: Warm and well perfused; 2+ peripheral edema to the knee bilaterally; lower extremitiessymmetric in size; no calf tenderness Vascular: palpable radial/DP pulses bilaterally; no cyanosis; capillary refill 4-5 seconds. Skin: Dry, non-diaphoretic; no rashes; +jaundice Neuro: Awake and alert, answering questions appropriately, does not seem confused; no facial asymmetry; moving all extremities symmetrically; strength exam grossly normal; no aphasia or dysarthria; no asterixis Psych: Normal mood and affect. Diagnostic Studies Labs: Please see EMR for labs obtained during this patient encounter Radiology: Please see EMR for images obtained during this patient encounter EKG: EKG Interpretation : Rhythm: Normal sinus rhythm Rate: 67 bpm [place]: Normal axis Intervals: Normal Conduction: Normal Q Waves: none ST Segments: No acute changes T Waves: No acute change Ectopy: None Clinical Impression: No acute changes Comparison: No old EKG available for comparison ED Course and MDM Mindy Wade is a 33 y.o. female with a history and presentation as described above in HPI. The patient was evaluated by myself, Humberto Polo MD, and the ED Attending Physician, Dr. Sammi Carney MD. All management and disposition plans were discussed and agreed upon. Briefly, this is a 33 y.o. female with pertinent PMH of cirrhosis of unknown etiology (hx HCV, alcohol abuse, possible autoimmune history) presenting to the emergency department with chief complaint of worsening abdominal pain and distension with jaundice, bilateral leg swelling, and subjective cognitive slowing. Upon presentation, patient was well-appearing, resting comfortably in no acute distress; vital signs were hemodynamically stable, not tachycardic or tachypneic, normoxic on room air, afebrile. Initial assessment, including history and physical exam, reveals distended abdomen, jaundice, scleral icterus. At this time, there is concern for decompensated cirrhosis possibly due to SBP given her complaints of RUQ pain. RUQ ultrasound demonstrates a moderate RUQ fluid pocket that is amenable to paracentesis consistent with ascites. She may also just have progression of her cirrhosis. No ALINE, no evidence hepatorenal syndrome. Chest pain is reproducible. Symptoms not consistent with ACS. PE considered given her coagulopathy but she is PERC negative and normoxic on room air so PE is unlikely. 0/4 SIRS at this time, low concern for active sepsis. It appears she would like to establish liver care here because she is unhappy with her care at . Plan for paracentesis to rule out SBP; if paracentesis is normal she can likely be discharged with follow-up to liver team here. Notable workup results and subsequent updates: ED Course as of 09/02/23 0826 FriSep 02, 2023 0256 MELD 20, up from 18 when seen in the OSH ED 5 days ago. 0821 CBC(!): WBC 10.0 RBC 3.17(!) Hemoglobin 12.1 Hematocrit 34.5(!) MCV 108.8(!) MCH 38.1(!) MCHC 35.0 RDW 15.7(!) Platelet Count 139(!) MPV 9.6 No anemia, mild thrombocytopenia, no leukocytosis. 0821 Basic metabolic panel: Sodium 135 Potassium 3.9 Chloride 101 Carbon Dioxide (CO2) 29 Anion Gap 5 BUN 13 Creatinine 0.84 Glucose 91 Calcium 8.8 Calculated Osmolality, Serum 280 EGFR >90 Normal electrolytes, no ALINE 0821 Hepatic Function Panel(!): Bili, Total 5.1(!) Bilirubin, Direct 2.1(!) AST (SGOT) 72(!) ALT (SGPT) 47 Alkaline Phosphatase 111 Protein, Total 6.3(!) Albumin 2.9(!) Bilirubin, Indirect 3.1(!) Mixed hyperbilirubinemia, up from ~4 at OSH 5 days ago. 0826 RUQ ultrasound demonstrates moderate fluid pocket amenable to paracentesis, likely ascites. Medications received during this ED visit: Medications lidocaine-EPINEPHrine 1 %-1:100,000 injection 1 mL (1 mL Intradermal Not Given 09/02/23 0759) lidocaine-EPINEPHrine 2 %-1:100,000 injection ( Given 09/02/23 0759) Medical Decision Making Amount and/or Complexity of Data Reviewed Radiology: ordered. ECG/medicine tests: ordered. Impression 1. Cirrhosis of liver with ascites, unspecified hepatic cirrhosis type (CMS-HCC) (CMS-HCC) Plan At this time I am going off-service and will be signing out care of this patient to oncoming provider for further care. My colleague's responsibilities will include: - paracentesis - disposition pending paracentesis results No future appointments. MAEVE RIZO MD Emergency Medicine, PGY1 09/02/2023 Maeve Rizo MD Resident 09/02/23 0826 Cosigned by Sammi Carney MD at 09/03/2023 10:12 PM EDT documented in this encounter Procedure Notes * Hilda Shepherd MD - 09/01/2023 7:36 PM EDTAssociated Order(s): Paracentesis [facility] ED Procedure Note Emergency Department Procedures Paracentesis Date/Time: 09/02/2023 4:32 PM Performed by: Hilda Shepherd MD Authorized by: Sammi Carney MD Consent: Consent obtained: Verbal and written Consent given by: Patient Risks, benefits, and alternatives were discussed: yes Risks discussed: Bleeding, bowel perforation, infection and pain Alternatives discussed: No treatment and observation [place] protocol: Procedure explained and questions answered to patient or proxy's satisfaction: yes Site/side marked: yes Patient identity confirmed: Verbally with patient and arm band Pre-procedure details: Procedure purpose: Diagnostic Preparation: Patient was prepped and draped in usual sterile fashion Anesthesia: Anesthesia method: Local infiltration Local anesthetic: Lidocaine 2% WITH epi Procedure details: Needle gauge: 20 Ultrasound guidance: yes Puncture site: R lower quadrant Fluid removed amount: 20 cc Fluid appearance: Shannon Post-procedure details: Procedure completion: Tolerated well, no immediate complications Cosigned by Uriel Noel MD at 09/02/2023 5:56 PM EDT Associated attestation - Uriel Noel MD - 09/02/2023 5:56 PM EDT I was present at the performance of the paracentesis. documented in this encounter Nursing Notes * Asha Church RN - 09/01/2023 7:44 PM EDT Patient is end stage liver failure, previously seen at but wants to come to [facility] now. Presents with increased BLE swelling and abdominal bloating. Endorsing chest pain and shortness of breath. documented in this encounter ED Notes * Guanako Cruz RN - 09/02/2023 2:39 PM EDT Pt verbalizes understanding of discharge instructions and has been given the opportunity to ask questions. Due to infection precautions, patient is unable to sign at this time. * Guanako Cruz RN - 09/02/2023 7:41 AM EDT Pt resting in bed. Pt is awake and oriented. Respirations are even and unlabored at this time. * Shawna Barrios RN - 09/02/2023 1:03 AM EDT Bed: [facility] Expected date: 09/02/23 Expected time: 12:44 AM Means of arrival: Comments: triage documented in this encounter Miscellaneous Notes * Research Note - Raphael Dejesus - 09/02/2023 12:00 PM EDT JET Team met with patient bedside to assess needs and offer support. Patient presents today with leg swelling/bloating/chest pain/ SOB . Patient does not endorse current alcohol use. Patient states that her last drink was a few months ago. Patient denied needing any inpatient/outpatient resources. Patient did accept Acamprosate. Team provided patient with harm reduction tools, resources, and contact information. Raphael Dejesus Insulation Technician-JET Team [facility] Department of Emergency Medicine C: [phone] * ED Medical Screening Exam - Shiraz Rivera MD - 09/01/2023 7:36 PM EDT [facility] MEDICAL SCREENING EXAM Date of Service: 09/01/2023 Reason for Visit: Leg Swelling (Bilateral), Bloating, Chest Pain, and Shortness of Breath MSE Plan Patient evaluated from [facility] for a medical screening exam. In short, this is a patient presenting with concerns for liver failure. To further evaluate their complaints, the following orders have been placed: Labs Reviewed HEPATIC FUNCTION PANEL ED HCV AB REFLEX TO HCV QUANT LIPASE MAGNESIUM PHOSPHORUS BASIC METABOLIC PANEL CBC DIFFERENTIAL PROTIME-INR Medications - No data to display Stable for [facility] while awaiting ED bed. See primary provider's note for full details and final disposition. Brief HPI Mindy Wade is a 33 y.o. female presenting with concerns for liver failure. The patient has a history of which she describes as autoimmune hepatitis potentially complicated with alcoholic hepatitisand has been cared for at and has had admissions for liver failure has never had paracentesis performed. She reports several day increase in total body swelling and anasarca as well as some shortness of breath and abdominal pain. Denies any fevers or chills.. Pertinent Physical Exam ED Triage Vitals [09/01/23 1950] Vital Signs Group Temp 98.6 ??F (37 ??C) Temp Source Oral Heart Rate 83 Heart Rate Source Monitor Resp 18 SpO2 100 % BP 103/66 MAP (mmHg) 78 BP Method Automatic BP Location Right upper arm BP Cuff Size Patient Position Sitting SpO2 100 % O2 Device None (Room air) General: 33-year-old female tearful sitting in bed HEENT: Head is atraumatic, sclera is icteric, mucus membranes moist Neck: No lymphadenopathy, trachea midline Pulmonary: No tachypnea, no accessory muscle use Cardiovascular: 2+ radial pulses bilaterally, brisk capillary refill Abdomen: Distended, soft, no significant tenderness to palpation Musculoskeletal: No gross deformities, no tenderness to palpation throughout long bones, bilateral lower extremity pitting edema Skin: Warm, dry well perfused Neuro: Alert, speech is clear and intact without dysarthria or aphasia Patient History 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 No past medical history on file. No past surgical history on file. Mindy Wade has no history on file for tobacco use, alcohol use, and drug use. Previous Medications No medications on file Allergies: Allergies as of 09/01/2023 (Not on File) Shiraz Rivera MD MEd documented in this encounter Plan of Treatment Scheduled Referrals Name Type Priority Associated Diagnoses Orde r Schedule Hepatology Outpatient Referral Routine Cirrhosis of liver with ascites, unspecified hepatic cirrhosis type (CMS-HCC) Ordered: 09/02/2023 documented as of this encounter Procedures Procedure Name Priority Date/Time Associated Diagnosis Comments PARACENTESIS Routine 09/02/2023 4:32 PM EDT BODY FLUID CULTURE PLUS STAIN STAT 09/02/2023 10:02 AM EDT BODY FLUID CELL COUNT STAT 09/02/2023 10:02 AM EDT PROTEIN, BODY FLUID STAT 09/02/2023 1 0:02 AM EDT GLUCOSE, BODY FLUID STAT 09/02/2023 1 0:02 AM EDT AMYLASE, BODY FLUID Routine 09/02/2023 1 0:02 AM EDT ALBUMIN, FLUID STAT 09/02/2023 10:02 AM EDT BEDSIDE FAST ULTRASOUND ABDOMEN Routine 09/02/2023 8:44 AM EDT XR PORTABLE CHEST LETTY 09/02/2023 3:3 8 AM EDT BEDSIDE FAST ULTRASOUND ABDOMEN Routine 09/02/2023 2:59 AM EDT CYTOLOGY, PERITONEAL FLUID STAT 09/02/2023 12:00 AM EDT HEPATIC FUNCTION PANEL STAT 09/01/2023 10:37 PM EDT HEPATITIS C, RNA, QUANT Routine 09/01/2023 10:37 PM EDT ED HCV AB REFLEX TO HCV QUANT Routine 09/01/2023 10:37 PM EDT DIFFERENTIAL STAT 09/01/2023 10:37 PM EDT PROTIME-INR STAT 09/01/2023 10:37 PM EDT CBC STAT 09/01/2023 10:37 PM EDT PHOSPHORUS STAT 09/01/2023 10:37 PM EDT MAGNESIUM STAT 09/01/2023 10:37 PM EDT LIPASE STAT 09/01/2023 10:37 PM EDT BASIC METABOLIC PANEL STAT 09/01/2023 10:37 PM EDT ED ECG 12-LEAD (MUSE) STAT 09/01/2023 7:48 PM EDT documented in this encounter Results * Paracentesis (09/02/2023 4:32 PM EDT) Narrative Uriel Noel MD - 09/02/2023 4:32 PM EDT Hilda Shepherd MD ? 09/02/2023 ??4:35 PM Paracentesis Date/Time: 09/02/2023 4:32 PM Performed by: Hilda Shepherd MD Authorized by: Sammi Carney MD ?? Consent: ??Consent obtained: ??Verbal and written ??Consent given by: ??Patient ??Risks, benefits, and alternatives were discussed: yes ?Risks discussed: ??Bleeding, bowel perforation, infection and pain ??Alternatives discussed: ??No treatment and observation [place] protocol: ??Procedure explained and questions answered to patient or proxy's satisfaction: yes ?Site/side marked: yes ?Patient identity confirmed: ??Verbally with patient and arm band Pre-procedure details: ??Procedure purpose: ??Diagnostic ??Preparation: Patient was prepped and draped in usual sterile fashion ?? Anesthesia: ??Anesthesia method: ??Local infiltration ??Local anesthetic: ??Lidocaine 2% WITH epi Procedure details: ??Needle gauge: ??20 ??Ultrasound guidance: yes ?Puncture site: ??R lower quadrant ??Fluid removed amount: ??20 cc ??Fluid appearance: ??[place] Post-procedure details: ??Procedure completion: ??Tolerated well, no immediate complications Sammi Carney MD PROCEDURE/MINOR SURGICAL OR DERABLES Final Result * Glucose, body fluid (09/02/2023 10:02 AM EDT) Glucose, Fluid 92 mg/dL 09/02/2023 10:46 AM EDT [facility] Comment:Reference range not established for this test. Ascitic Fluid ABDOMEN / Unknown 10:02 AM EDT 09/02/2023 10:17 AM EDT Narrative [facility] - 09/02/2023 10:46 AM EDT This assay has been modified from the philosophy and religion instructor's specifications and has been validated with performance characteristics determined by [facility] in accordance with federal regulations under the Clinical Laboratory Act Amendment of 1988. The modification has not been approved by the FDA which has determined that such approval is not necessary. The test is for clinical purposes and should not be regarded as investigational or for research use. Hilda Shepherd MD BODY FLUIDS AND STOOLS ORDERABLES Final Result Performing Organization Address City/State/[facility] Co de Phone Number [facility] [address] * Body Fluid Culture plus Stain (09/02/2023 10:02 AM EDT) Gram Stain Result Cytospin Results: [facility] Gram Stain Result Mononuclear Cells Seen; [facility] Gram Stain Result Polymorphonuclear Leukocytes Seen; [facility] Gram Stain Result No Organisms Seen; [facility] Culture Result No Growth After 5 Days [facility] Paracentesis Fluid ABDOMEN / Unknown 08/21 10:02 AM EDT 09/02/2023 11:33 AM EDT Hilda Shepherd MD MICROBIOLOGY - GENERAL ORDERABLES Final Result Performing Organization Address [facility] Co de Phone Number [facility] [address] [place] [address] * Amylase, Body fluid (09/02/2023 10:02 AM EDT) Amylase, Fluid 10 U/L 09/02/2023 10:46 AM EDT [facility] Comment:Reference range not established for this test. Abdominal Fluid ABDOMEN / Unknown 024 10:02 AM EDT 09/02/2023 10:17 AM EDT Narrative [facility] - 09/02/2023 10:46 AM EDT This assay has been modified from the philosophy and religion instructor's specifications and has been validated with performance characteristics determined by [facility] in accordance with federal regulations under the Clinical Laboratory Act Amendment of 1987. The modification has not been approved by the FDA which has determined that such approval is not necessary. The test is for clinical purposes and should not be regarded as investigational or for research use. Hilda Shepherd MD BODY FLUIDS AND STOOLS ORDERABLES Final Result Performing Organization Address [facility] de Phone Number [facility] [address] [place] [address] * Albumin, fluid (09/02/2023 10:02 AM EDT) Albumin, Fluid <1.5 g/dL 09/02/2023 10:46 AM EDT [facility] Comment:Reference range not established for this test. Abdominal Fluid ABDOMEN / Unknown 024 10:02 AM EDT 09/02/2023 10:17 AM EDT Narrative [facility] - 09/02/2023 10:46 AM EDT This assay has been modified from the philosophy and religion instructor's specifications and has been validated with performance characteristics determined by [facility] in accordance with federal regulations under the Clinical Laboratory Act Amendment of 1987. The modification has not been approved by the FDA which has determined that such approval is not necessary. The test is for clinical purposes and should not be regarded as investigational or for research use. Hilda Shepherd MD BODY FLUIDS AND STOOLS ORDERABLES Final Result Performing Organization Address [facility] de Phone Number [facility] [address] [facility]. [address] * Protein, Body fluid (09/02/2023 10:02 AM EDT) Protein, Fluid <3.0 g/dL 09/02/2023 10:46 AM EDT [facility] Comment:Reference range not established for this test. Ascitic Fluid ABDOMEN / Unknown 10:02 AM EDT 09/02/2023 10:17 AM EDT Narrative [facility] - 09/02/2023 10:46 AM EDT This assay has been modified from the philosophy and religion instructor's specifications and has been validated with performance characteristics determined by [facility] in accordance with federal regulations under the Clinical Laboratory Act Amendment of 1988. The modification has not been approved by the FDA which has determined that such approval is not necessary. The test is for clinical purposes and should not be regarded as investigational or for research use. Hilda Shepherd MD BODY FLUIDS AND STOOLS ORDERABLES Final Result Performing Organization Address [facility] de Phone Number [facility] [address] [facility]. [address] * (ABNORMAL) Body fluid cell count (09/02/2023 10:02 AM EDT) Color, Fluid Yellow(A) Colorless, Pale Yellow 09/02/2023 1:45 PM EDT [facility] Clarity, Fluid Hazy 09/02/2023 1:45 PM EDT [facility] Neutrophil %, Fluid 4 % 09/02/2023 1:45 PM EDT [facility] Lymphocytes %, Fluid 40 % 09/02/2023 1:45 PM EDT [facility] Mesothelial %, Fluid 4 % 09/02/2023 1:45 PM EDT [facility] Macrophage %, Fluid 52 % 09/02/2023 1:45 PM EDT [facility] RBC, Fluid 1,977 /uL 09/02/2023 1:45 PM EDT [facility] Total Nucleated Cells, Fluid 129 /uL 09/02/2023 1:45 PM EDT [facility] Comment:Total Nucleated Cell s represent WBCs and other nucleated cells in the fluid such as lining cells. Ascitic Fluid ABDOMEN / Unknown 10:02 AM EDT 09/02/2023 11:32 AM EDT us Hilda Shepherd MD BODY FLUIDS AND STOOLS ORDERABLES Final Result Performing Organization Address City/State/[facility] Co de Phone Number [facility] [address] * Bedside focused FAST ultrasound (09/02/2023 8:44 AM EDT) 09/02/2023 8:44 AM EDT Narrative [facility] - 09/07/2023 8:32 AM EDT Focused FAST Ultrasound Examination ?Exam category: ??Clinically indicated ?Indication(s) for Exam: ?Select one or more indications: ??other indication(s) ?planning for paracentesis ?Views Obtained: ?Select all areas imaged (medical customer service representative images/clips obtained): ??abdomen ?Findings: ?Hepatorenal: ??no fluid seen ?Interpretation: ?Positive FAST ?FAST interpretation details: ??intra-abdominal fluid seen ?Attending Attestation: ?I (the Attending) was present when the images were obtained by the bending machine set up operator AND/OR I reviewed the images after they were obtained. ??I have reviewed the interpretation by the bending machine set up operator, made any necessary edits and agree with the interpretation as currently documented. Electronically signed by Uriel Noel on Thursday, September 07, 2023 at 8:32 AM us Merlene Perez MD BEDSIDE US ORDERABLES Final Result [facility] * X-ray Portable Chest (09/02/2023 3:38 AM EDT) Anatomical Region Laterality Modality Chest Radiographic Radha ging 09/02/2023 3:19 AM EDT Impressions 09/02/2023 3:43 AM EDT IMPRESSION: No acute cardiopulmonary abnormality. Approved by Viktor Smith MD on 09/02/2023 3:41 AM EDT I have personally reviewed the images and I agree with this report. Report Verified by: Yonatan Albarado DO at 09/02/2023 3:43 AM EDT Narrative 09/02/2023 3:43 AM EDT EXAM: XR PORTABLE CHEST INDICATION: Shortness of breath TECHNIQUE: 1 view of the chest. COMPARISON: None. FINDINGS: Medical Devices: None. Heart and Mediastinum: Cardiomediastinal silhouette is within normal limits. Lungs and Pleura: Lungs are clear with no focal consolidations, pleural effusions or evidence for pneumothorax. Bones and soft tissues: No acute abnormalities. Procedure Note Jc Albarado DO - 09/02/2023 EXAM: XR PORTABLE CHEST INDICATION: Shortness of breath TECHNIQUE: 1 view of the chest. COMPARISON: None. FINDINGS: Medical Devices: None. Heart and Mediastinum: Cardiomediastinal silhouette is within normallimits. Lungs and Pleura: Lungs are clear with no focal consolidations, pleuraleffusions or evidence for pneumothorax. Bones and soft tissues: No acute abnormalities. IMPRESSION: No acute cardiopulmonary abnormality. Approved by Viktor Smith MD on 09/02/2023 3:41 AM EDT I have personally reviewed the images and I agree with this report. Report Verified by: Yonatan Albarado DO at 09/02/2023 3:43 AM EDT us Maeve Rizo MD IMG DIAGNOSTIC IMAGING ORDERABLE S Final Result * Bedside focused FAST ultrasound (09/02/2023 2:59 AM EDT) 09/02/2023 2:59 AM EDT Narrative [facility] - 09/04/2023 3:46 AM EDT Focused FAST Ultrasound Examination ?Exam category: ??Clinically indicated ?Indication(s) for Exam: ?Select one or more indications: ??other indication(s) ?abdominal distension ?Views Obtained: ?Select all areas imaged (medical customer service representative images/clips obtained): ??abdomen ?Findings: ?Other Findings: ??Moderate RUQ/RLQ pocket amenable to paracentesis. ?Interpretation: ?Technically inadequate ?Comments: ??focused RUQ/RLQ to evaluate for paracentesis pocket. ?Attending Attestation: ?I (the Attending) was present when the images were obtained by the bending machine set up operator AND/OR I reviewed the images after they were obtained. ??I have reviewed the interpretation by the bending machine set up operator, made any necessary edits and agree with the interpretation as currently documented. Electronically signed by Sammi Carney on August at 3:46 AM us Maeve Rizo MD BEDSIDE US ORDERABLES Final Resu lt [facility] * Cytology, Peritoneal Fluid (09/02/2023 12:00 AM EDT) Peritoneal Fluid 09/02/2023 09/02/19 24 Narrative [facility] - 09/02/2023 12:00 AM EDT CASE: [id number] PATIENT: MINDY WADE Clinical History: Clinical Diagnosis: Ascites Specimen Source: ?A. Peritoneal Fluid Gross Description: ??Received 3ml Yellow Fluid CPT Code(s): ?? 86387 X 1; 21444 X 1 Additional Information: DIAGNOSIS: Peritoneal Fluid (ThinPrep and Cell Block): NO MALIGNANT CELLS IDENTIFIED Scant mesothelial cells Paucicellular and hemodiluted specimen Initial Evaluation performed by Lili BUTLER([facility]) Electric Arc Furnace Operator Electronically signed 09/03/2023 08:08:24 AM ?? The Diagnostician signing this report is located at FACILITY NAME NOT ATTACHED, CLIA ID: Not Given Final Diagnosis performed by Janae Boyce M.D. Pathologist Electronically signed 09/03/2023 05:08:05 PM ?? The Pathologist signing this report is located at [facility], [address] [place] [address], [place], [place], [facility], , CLIA ID: [id number] us Hilda Shepherd MD PATHOLOGY/CYTOLOGY ORDE BRITANY Final Result Performing Organization Address [facility] Co de Phone Number [facility] * Hepatitis C, RNA, Quant (09/01/2023 10:37 PM EDT) Pathologist [facility] Units Not Detected IU/mL 09/04/2023 1:15 PM EDT [facility] Comment:Test methodology for HCV RNA quantification is an FDA-approved nucleic acid amplification assay. The Lower Limit of Quantitation (LLOQ) is 15 IU/mL. The linear range of the assay is 15-100,000,000 IU/mL. The Limit of Detection (LoD) is 13.7 IU/mL for serum. The reference range is Not Detected. IU log10 See Note log 10 IU/mL 09/04/2023 1:15 PM EDT [facility] Comment:HCV RNA not detected . Serum 09/01/2023 10:3 7 PM EDT 09/01/2023 11:53 PM EDT us Shiraz Rivera MD LAB BLOOD ORDERABLES Final Res ult Performing Organization Address City/[facility]/ZIP Co de Phone Number [facility] [address] [place] [address] * (ABNORMAL) Protime-INR (09/01/2023 10:37 PM EDT) Protime 20.4(H) 12.1 - 15.1 seconds 09/01/2023 11:15 PM EDT [facility] INR 1.7(H) 0.9 - 1.1 09/01/2023 11:15 PM EDT [facility] Comment: RECOMMENDED THERAPEUTIC RANGES USING INR : ?Stable oral anticoagulant therapy: ? 2.0 - 3.0 ?Mechanical prosthetic heart valve: ? 2.5 - 3.5 ?Recurrent acute myocardial infarction: ? 2.5 - 3.5 Plasma 09/01/2023 10:3 7 PM EDT 09/01/2023 10:54 PM EDT us Shiraz Rivera MD LAB BLOOD ORDERABLES Final Res ult Performing Organization Address City/State/[facility] Co de Phone Number [facility] [address] [facility]. [address] * (ABNORMAL) Differential (09/01/2023 10:37 PM EDT) Neutrophils Relative 48.0 40.0 - 80.0 % 09/01/2023 11:03 PM EDT [facility] Lymphocytes Relative 29.0 15.0 - 45.0 % 09/01/2023 11:03 PM EDT [facility] Monocytes Relative 17.3(H) 0.0 - 12.0 % 09/01/2023 11:03 PM EDT [facility] Eosinophils Relative 5.0 0.0 - 8.0 % 09/01/2023 11:03 PM EDT [facility] Basophils Relative 0.7 0.0 - 1.0 % 09/01/2023 11:03 PM EDT [facility] nRBC 0 0 - 0 /100 WBC 09/01/2023 11:03 PM EDT [facility] Neutrophils Absolute 4,800 1,500 - 7,800 /uL 09/01/2023 11:03 PM EDT [facility] Lymphocytes Absolute 2,900 850 - 3,900 /uL 09/01/2023 11:03 PM EDT [facility] Monocytes Absolute 1,730(H) 200 - 950 /uL 09/01/2023 11:03 PM EDT [facility] Eosinophils Absolute 500 15 - 500 /uL 09/01/2023 11:03 PM EDT [facility] Basophils Absolute 70 0 - 200 /uL 09/01/2023 11:03 PM EDT [facility] Whole Blood 09/01/2023 10:3 7 PM EDT 09/01/2023 10:54 PM EDT us Shiraz Rivera MD LAB BLOOD ORDERABLES Final Res ult [facility] [address] [place] [address], [facility] * (ABNORMAL) CBC (09/01/2023 10:37 PM EDT) WBC 10.0 3.8 - 10.8 10E3/uL 09/01/2023 11:03 PM EDT [facility] RBC 3.17(L) 3.80 - 5.10 10E6/uL 09/01/2023 11:03 PM EDT [facility] Hemoglobin 12.1 11.7 - 15.5 g/dL 09/01/2023 11:03 PM EDT [facility] Hematocrit 34.5(L) 35.0 - 45.0 % 09/01/2023 11:03 PM EDT [facility] MCV 108.8(H) 80.0 - 100.0 fL 09/01/2023 11:03 PM EDT [facility] MCH 38.1(H) 27.0 - 33.0 pg 09/01/2023 11:03 PM EDT [facility] MCHC 35.0 32.0 - 36.0 g/dL 09/01/2023 11:03 PM EDT [facility] RDW 15.7(H) 11.0 - 15.0 % 09/01/2023 11:03 PM EDT [facility] Platelets 139(L) 140 - 400 10E3/uL 09/01/2023 11:03 PM EDT [facility] MPV 9.6 7.5 - 11.5 fL 09/01/2023 11:03 PM EDT [facility] Whole Blood 09/01/2023 10:3 7 PM EDT 09/01/2023 10:54 PM EDT us Shiraz Rivera MD LAB BLOOD ORDERABLES Final Res ult [facility] [address] [place], [place] [address] * Basic metabolic panel (09/01/2023 10:37 PM EDT) Sodium 135 133 - 146 mmol/L 09/01/2023 11:00 PM EDT [facility] Potassium 3.9 3.5 - 5.3 mmol/L 09/01/2023 11:00 PM EDT [facility] Chloride 101 98 - 110 mmol/L 09/01/2023 11:00 PM EDT [facility] CO2 29 21 - 33 mmol/L 09/01/2023 11:00 PM EDT [facility] Anion Gap 5 3 - 16 mmol/L 09/01/2023 11:00 PM EDT [facility] BUN 13 7 - 25 mg/dL 09/01/2023 11:00 PM EDT [facility] Creatinine 0.84 0.60 - 1.30 mg/dL 09/01/2023 11:00 PM EDT [facility] Glucose 91 70 - 100 mg/dL 09/01/2023 11:00 PM EDT [facility] Calcium 8.8 8.6 - 10.3 mg/dL 09/01/2023 11:00 PM EDT [facility] Osmolality, Calculated 280 278 - 305 mOsm/kg 09/01/2023 11:00 PM EDT [facility] EGFR >90 09/01/2023 11:00 PM EDT [facility] Comment: As of 2021, the estimated [...] ND, Jyoti [place], Nas [place], et al. ??A Unifying Approach for GFR Estimation: Recommendations of the NKF-ASN Task Force on Reassessing the inclusion of Race in Diagnosing Kidney Disease. Am J Kidney Dis. 2020. GFR is estimated using creatinine, age, and sex. Patient's values should be interpreted as a trend. ?Below 90 mL/min/1.73m2, the patient may have renal disease. ?For additional information: ?? www.kidney.org Plasma 09/01/2023 10:3 7 PM EDT 09/01/2023 10:41 PM EDT us Shiraz Rivera MD LAB BLOOD ORDERABLES Final Res ult Performing Organization Address City/[facility]/ZIP Co de Phone Number [facility] [address] [facility]. [address] * Phosphorus (09/01/2023 10:37 PM EDT) Phosphorus 3.4 2.1 - 4.7 mg/dL 09/01/2023 11:00 PM EDT [facility] Plasma 09/01/2023 10:3 7 PM EDT 09/01/2023 10:41 PM EDT us Shiraz Rivera MD LAB BLOOD ORDERABLES Final Res ult [facility] [address] [facility]. [address] * Magnesium (09/01/2023 10:37 PM EDT) Magnesium 1.7 1.5 - 2.5 mg/dL 09/01/2023 11:00 PM EDT [facility] Plasma 09/01/2023 10:3 7 PM EDT 09/01/2023 10:41 PM EDT us Shiraz Rivera MD LAB BLOOD ORDERABLES Final Res ult Performing Organization Address City/[facility] Co de Phone Number [facility] [address] [facility]. [address] * (ABNORMAL) Lipase (09/01/2023 10:37 PM EDT) Lipase 83(H) 4 - 82 U/L 09/01/2023 11:00 PM EDT [facility] Plasma 09/01/2023 10:3 7 PM EDT 09/01/2023 10:41 PM EDT us Shiraz Rivera MD LAB BLOOD ORDERABLES Final Res ult Performing Organization Address [facility] Co de Phone Number [facility] [address] [facility]. [address] * (ABNORMAL) ED HCV Ab Reflex To HCV Quant (09/01/2023 10:37 PM EDT) HCV Ab Reactive( A) Nonreactive 09/02/2023 5:03 AM EDT [facility] Comment:Health Department no tified in accordance with reportable infectious disease guidelines. HCVAB Number 4.50(H) 0.00 - 0.79 S/CO 09/02/2023 5:03 AM EDT [facility] Serum 09/01/2023 10:3 7 PM EDT 09/01/2023 10:54 PM EDT us Shiraz Rivera MD LAB BLOOD ORDERABLES Final Res ult Performing Organization Address City/[facility]/ZIP Co de Phone Number [facility] [address] [facility]. [address] * (ABNORMAL) Hepatic Function Panel (09/01/2023 10:37 PM EDT) Total Bilirubin 5.1(H) 0.0 - 1.5 mg/dL 09/01/2023 11:00 PM EDT [facility] Bilirubin, Direct 2.1(H) 0.0 - 0.4 mg/dL 09/01/2023 11:00 PM EDT [facility] AST 72(H) 13 - 39 U/L 09/01/2023 11:00 PM EDT [facility] ALT 47 7 - 52 U/L 09/01/2023 11:00 PM EDT [facility] Alkaline Phosphatase 111 36 - 125 U/L 09/01/2023 11:00 PM EDT [facility] Total Protein 6.3(L) 6.4 - 8.9 g/dL 09/01/2023 11:00 PM EDT [facility] Albumin 2.9(L) 3.5 - 5.7 g/dL 09/01/2023 11:00 PM EDT [facility] Bilirubin, Indirect 3.1(H) 0.0 - 1.1 mg/dL 09/01/2023 11:00 PM EDT [facility] Plasma 09/01/2023 10:3 7 PM EDT 09/01/2023 10:41 PM EDT us Shiraz Rivera MD LAB BLOOD ORDERABLES Final Res ult [facility] [address] * ED ECG 12-Lead (MUSE) (09/01/2023 7:48 PM EDT) 09/01/2023 7:48 PM EDT Narrative MUSE - 09/02/2023 7:37 AM EDT Ventricular Rate: ??67 ??BPM Atrial Rate: ??67 ??BPM P-R Interval: ??132 ??ms QRS Duration: ??76 ??ms QT: ??422 ??ms QTc: ??445 ??ms P [place]: ??20 ??degrees R [place]: ??75 ??degrees T [place]: ??55 ??degrees Diagnosis Line: ??INTERPRETATION NOT AVAILABLE--ECG READ IN ER ^ Confirmed by PHYSICIAN, ER ([id number]), story editor [employer] ([id number]) on 09/02/2023 7:37:30 AM us Sammi Carney MD ECG ORDERABLES Final Resul t MUSE documented in this encounter Visit Diagnoses Diagnosis Cirrhosis of liver with ascites, unspecified hepatic cirrhosis type ([facility])- Primary documented in this encounter Administered Medications Inactive Administered Medications - up to 3 most recent administrations Medication Order MAR Action Action Date Dose Rate Site lidocaine-EPINEPHrine 2 %-1:100,000 injection Starting on Fri09/02/23 at 0757, For 1 dose, Created by cabinet override Given 09/02/2023 7:59 AM EDT ondansetron (ZOFRAN) injection 8 mg 8 mg, Intravenous, Once, On Fri09/02/23 at 1021, For 1 dose Given 09/02/2023 10:35 AM EDT 8 mg documented in this encounter Active and Recently Administered Medications Due to Daylight Saving Time, this section may contain times in both EST and EDT. Scheduled Medication Order 08/31/2023 09/01/2023 09/02/2023 lidocaine-EPINEPHrine 1 %-1:100,000 injection 1 mL 1 mL, Intradermal, Once, On Fri09/02/23 at 0755, For 1 dose 0759 (Not Given - Pr ovider: Guanako Cruz RN - Reason: Other - Comment: see MAR) ondansetron (ZOFRAN) injection 8 mg (COMPLETED) 8 mg, Intravenous, Once, On Fri09/02/23 at 1021, For 1 dose 1035 (Given - Provid er: Guanako Cruz RN) No Frequency Medication Order 08/31/2023 09/01/2023 09/02/2023 lidocaine-EPINEPHrine 2 %-1:100,000 injection (COMPLETED) Starting on Fri09/02/23 at 0757, For 1 dose, Created by cabinet override 0759 (Given - Provid er: Guanako Cruz RN - Comment: handoff to ) documented in this encounter Care Teams Supervisor [employer] Relationship Specialty Start Date End Date Unknown, Attending Provider PCP - General 09/01/2308/31 Yonatan Graves DO [address] [place] [address] PCP - General 09/02/23 Farida Ortega, MOBILE SERVICE RV TECHNICIAN [id number] [place] [address] Referring Physician Gastroenterology 09/02/23 documented as of this encounter
--- OUTSIDE RECORDS SUMMARY | 2024-05-11 18:30 | XMS_ITS | Encounter Summary ---
Author Organization [facility] Address [address] [place] [address] Care Team Providers Care Computer Systems Information Director Name Role Phone Yonatan Graves DO Primary Care Provider Adryan Bearden Unavailable Encounter Details Date Type Department Care Team (Latest Contact Info) Description 01/27/2024 Travel Social History Tobacco Use Types Packs/Day Years Used Date Smoking Tobacco: Former Cigarettes Q uit: 05/14/2019 Passive Smoke Exposure: Past Smokeless Tobacco: Never Alcohol Use Standard Drinks/Week Comments Not Currently 0 (1 standard drink = 0.6 oz pure alcohol) Last drink was first week of July 2023 PHQ-2 Answer Date Recorded Patient Health Questionnaire-2 Score 2 01/27/2024 PHQ-9 Answer Date Recorded Patient Health Questionnaire-9 Score 11 01/27/2024 PHQ-2A Answer Date Recorded Patient Health Questionnaire-2 [...] Assessment Noted Time PHQ-9 Depression Total Score: 11 024 11:00 AM EDT A fall risk assessment has been complete d for the patient 10/07/2023 9:46 AM EDT A Body Mass Index follow-up plan has been documented for the patient 02/06/2024 10:14 PM EDT documented as of this encounter Care Teams Computer Systems Information Director Relationship Specialty Start Date End Date Yonatan Graves DO [address] [facility] [address] [place] [address] PCP - General 09/24/22 Adryan Bearden PA [facility] [phone] Referring Physician Gastroenterology 09/24/22 documented as of this encounter
--- OUTSIDE RECORDS SUMMARY | 2024-05-11 18:30 | XMS_ITS | Encounter Summary ---
Author Organization [facility] Address [address] [place] [address] Care Team Providers Care Cell Room Supervisor Name Role Phone Yonatan Graves DO Primary Care Provider Adryan Bearden Unavailable Encounter Details Date Type Department Care Team (Latest Contact Info) Description 02/25/2024 Travel Social History Tobacco Use Types Packs/Day Years Used Date Smoking Tobacco: Former Cigarettes Q uit: 05/14/2019 Passive Smoke Exposure: Past Smokeless Tobacco: Never Alcohol Use Standard Drinks/Week Comments Not Currently 0 (1 standard drink = 0.6 oz pure alcohol) Last drink was first week of July 2023 PHQ-2 Answer Date Recorded Patient Health Questionnaire-2 Score 2 02/25/2024 PHQ-9 Answer Date Recorded Patient Health Questionnaire-9 Score 18 02/25/2024 PHQ-2A Answer Date Recorded Patient Health Questionnaire-2 [...] Assessment Noted Time PHQ-9 Depression Total Score: 18 024 4:17 AM EDT A fall risk assessment has been complete d for the patient 10/07/2023 9:46 AM EDT A Body Mass Index follow-up plan has been documented for the patient 02/06/2024 10:14 PM EDT documented as of this encounter Care Teams Cell Room Supervisor Relationship Specialty Start Date End Date Yonatan Graves DO [address] [facility] [address] [place] [address] PCP - General 09/24/22 Adryan Bearden PA [phone] Referring Physician Gastroenterology 09/24/22 documented as of this encounter
--- OUTSIDE RECORDS SUMMARY | 2024-05-11 18:30 | XMS_ITS | Encounter Summary ---
Author Organization [facility] Address [address] [place] [address] Care Team Providers Care Hose Finisher Name Role Phone Yonatan Graves DO Primary Care Provider Farida Ortega PEDIATRIC NEUROLOGIST Unavailable [phone] Source Comments This information has been disclosed [...] release of HIV test results or diagnoses. [id number] Health Encounter Details Date Type Department Care Team (Latest Contact Info) Description 09/07/2023 Travel Social History Tobacco Use Types Packs/Day [...] on filedocumented in this encounter Care Teams Hose Finisher Relationship Specialty Start Date End Date Yonatan Graves DO [address] [place] [address] PCP - General 09/02/23 Farida Ortega, PEDIATRIC NEUROLOGIST [address] [place] [id number] Referring Physician Gastroenterology 09/02/23 documented as of this encounter
--- OUTSIDE RECORDS SUMMARY | 2024-05-11 18:30 | XMS_ITS | Encounter Summary ---
Author Organization [facility] Address [address] [place] [address] Care Team Providers Care Academic Assistant Name Role Phone Yonatan Graves DO Primary Care Provider Adryan Bearden Unavailable Encounter Details Date Type Department Care Team (Latest Contact Info) Description 03/05/2024 Travel Social History Tobacco Use Types Packs/Day Years Used Date Smoking Tobacco: Former Cigarettes Q uit: 05/14/2019 Passive Smoke Exposure: Past Smokeless Tobacco: Never Alcohol Use Standard Drinks/Week Comments Not Currently 0 (1 standard drink = 0.6 oz pure alcohol) Last drink was first week of July 2023 PHQ-2 Answer Date Recorded Patient Health Questionnaire-2 Score 2 03/05/2024 PHQ-9 Answer Date Recorded Patient Health Questionnaire-9 Score 12 03/05/2024 PHQ-2A Answer Date Recorded Patient Health Questionnaire-2 [...] Assessment Noted Time PHQ-9 Depression Total Score: 024 7:31 AM EDT A fall risk assessment has been complete d for the patient 10/07/2023 9:46 AM EDT A Body Mass Index follow-up plan has been documented for the patient 03/10/2024 4:42 PM EDT documented as of this encounter Care Teams Academic Assistant Relationship Specialty Start Date End Date Yonatan Graves DO [address] [facility] [address] [place] [address] PCP - General 09/24/22 Adryan Bearden PA [facility] [place] [phone] Referring Physician Gastroenterology 09/24/22 documented as of this encounter
--- OUTSIDE RECORDS SUMMARY | 2024-05-11 18:30 | XMS_ITS | Encounter Summary ---
Author Organization [facility] Address [address] [place] [address] Care Team Providers Care Machine Engineer Name Role Phone Yonatan Graves DO Primary Care Provider Farida Ortega MUFF WINDER Unavailable [phone] Source Comments This information has been disclosed [...] release of HIV test results or diagnoses. [id number] Encounter Details Date Type Department Care Team (Late st Contact Info) Description 09/25/2023 Social Work [facility] Liver Transplant at [address], [address] [place] [address] Zeny Bhakta MSW, AJ Social History Tobacco Use Types Packs/Day Years [...] as of this encounter Progress Notes * ASIM Selby LSW - 09/25/2023 10:23 AM EDT TRANSPLANT PSYCHOSOCIAL ASSESSMENT Support Persons: Darien Wade (): [phone] Kee Llanes (father) Art Hernández (mother) Client's Perception of Medical Condition: Patient is referred for liver transplant evaluation. SW met with patient and her to complete a liver transplant psychosocial assessment. Patient and report that patient was initially diagnosed with HCV due to IVDU in 2017. HCV treated with Harvoni in 2018 and achieved SVR, per records. Last IVDU reported in 2017. They report that patient was relatively stable until October 2022 when she developed nausea/vomiting, jaundice and abdominal distension. She was told at that time to cease all alcohol use. Per patient, at that time she did not accept that her liver failure was in part due to alcohol. 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 She endorses the following decompensations: jaundice, ascites, LLE, and fatigue. Her most recent MELD was 22. SW provided education for pre and post-transplant. She has been declined at due to on-going alcohol use despite liver disease diagnosis and lack of insight into AUD. Patient unclear if she will pursue dual-listing at and . She does not have any taoism, ethnic, or personal objections to accepting blood products, havingsurgery, or receiving a transplant. Patient states that she understands the process of liver transplant, and she is choosing liver transplant as her treatment option. Of note, patient reports that her father had a liver transplant approximately 8- 9 years ago at due to SOLER. She shares that he has been very supportive of her. Support Plan: Patient's , will provide 24 hour post-transplant support and will be able to provide transportation. S/he was provided a document describing what type of post-transplant support is needed. Psychiatric History: Patient has a history of depression and anxiety. She reports that she is prescribed Gabapentin (600, 3x/day) for tremors and anxiety and Remeron for sleep. She denies history of inpatient psychiatric admission, suicidal ideation and suicide attempts. PHQ-9 Scores: 09/25/2023 11:52 AM PHQ Total Score PHQ-9 Total Score 13 GAD7 Scores: 09/25/2023 11:52 AM [id number] Score CHATO-7 Total Score 8 Reviewed results of questionnaires with patient. (PHQ-9 score: 13, CHATO-7 score: 8). Patient's PHQ-9score is indicative of moderate symptoms of depression at this time. Her CHATO-7 score is indicative of mild symptoms of anxiety at this time. Patient notes that she is working with the [facility] on dual-diagnosis treatment. SW discussed the availability of transplant mental health resources. Patient denies resources at this time, but will notify SW if the need arises. Alcohol/Other Drug History: Patient has a history of significant polysubstance abuse (opioids- prescription, cocaine, heroin/fentanyl; alcohol; marijuana). She has a history of abuse of prescription medications (opioids). She is a former smoker. Alcohol: He has a significant history of Alcohol Use Disorder, severe type. She reports ceasing all alcohol use in early July 2023. She reports consuming approximately 6-10 wine or malt beverages per day,for at least 7 years. She started experimenting with alcohol as teenager. He has had???DUI or otherlegal issues surrounding his use. He has attempted rehab???.times, and his longest period of sobriety was He meets criteria for DSM V alcohol use disorder, severe type, due to the following criteria: ?? Tolerance, increased use over time. ?? Withdrawal symptoms ?? Alcohol is often taken in larger amounts or over a longer period than was intended. ?? There is a persistent desire or unsuccessful efforts to cut down or control alcohol use. ?? A great deal of time is spent in activities necessary to obtain, use or recover from its effects ?? Craving, or a strong desire or urge to use alcohol. ?? Recurrent alcohol use resulting in a failure role obligations at work, school or home. ?? Continued alcohol use despite having a persistent or recurrent social or interpersonal problems ?? Important social, occupational or recreational activities are given up or reduced because of use. ?? Recurrent alcohol use in situations in which it is physically hazardous. ?? Alcohol use is continued despite knowledge of having a persistent or recurrent physical or psychological problem that is likely to have been caused or exacerbated by alcohol. Marijuana: Patient reports the occasional use of Marijuana for nausea, appetite and pain. She does not meet criteria of a Cannabis Use Disorder at this time. SW discussed pre- and post- OLT considerations with marijuana use. Patient reports that she was cease all use. At this time, SW anticipates a positive THC result. Opioids: Patient reports that she first started abusing prescription opioids after being prescribed them forkidney stones and miscarriages. She reports getting addicted to opioids and transitioned to IVDU fentanyl and heroin ([id number]). In 2016- 2019, she engaged in MAT (Subxone) with Dr. Preston ([facility] She reports that she has been prescribed narcotics since that time. No relapse prevention plan established yet. SW discussed at length the importance of developing a plan. Patient and verbalized understanding. She meets criteria for DSM V substance use disorder, severe type, in sustained remission, due to the following criteria: ?? Tolerance, increased use over time. ?? Withdrawal symptoms ?? Substance is often taken in larger amounts or over a longer period than was intended. ?? There is a persistent desire or unsuccessful efforts to cut down or control substance use. ?? A great deal of time is spent in activities necessary to obtain, use or recover from its effects ?? Craving, or a strong desire or urge to use substance. ?? Recurrent substance use resulting in a failure role obligations at work, school or home. ?? Continued substance use despite having a persistent or recurrent social or interpersonal problems ?? Important social, occupational or recreational activities are given up or reduced because of use. ?? Recurrent substance use in situations in which it is physically hazardous. ?? Substance use is continued despite knowledge of having a persistent or recurrent physical or psychological problem that is likely to have been caused or exacerbated by substance. Treatment: 2023: Outpatient; [facility] (Dr. Guajardo) Brynn Pittman (counselor)- Since June Transitioned patient from detox 2017- 30 day inpatient residential treatment for Opioid Use Disorder (IVDU- heroin/fentanyl). Maintained sobriety from opioids since that time. Of note, patient's reports that he is also in recovery at this time. He is supportive of patient's recovery and plays an active role in patient's CD treatment. Patient has a history of polysubstance abuse (alcohol, cocaine, heroin/fentanyl, marijuana). SW discussed that patient will required to maintain sobriety from all substances at least 1 year. SW discussed re-evaluation after 6 months, if re-referred by hepatology due to medical indication. Narcotic Pain Medication: See above. Past and Current Life / Social Situation: Patient is a 33 year old female who resides with her and children. She completed some college. 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 She worked in [employer]. She was never in the . Her hobbies include to cooking, family gatherings, and cook outs. Family History: Patient and her have been 2 years and together for 9 years. Patient has two children from her previous relationship (Ky, 13' Alana, 11) and one son from her current marriage (Shelley, 7). Her parents are alive and in good health. She has two brothers (Dionte, 31; Talat, 25) and two sisters (Shaneka, 39; Laila, 19). Rehabilitation Plans: Patient would like to regain her health and ability to work. 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 Patient presented as knowledgeable regarding her diagnosis and available treatment options. Patient identified her , father, aunts, and friends as post-transplant caregiver. He has a history of anxiety. She has a history of polysubstance abuse. She has maintained sobriety since July 2023. Patient reports living with her and children in a single story home. Patient denies the useof assistive devices to ambulate. Patient is independent with her ADLs and iADLs. SW discussed psychosocial risks from the transplant, such as PTSD, generalized anxiety disorder, and anxiety about being dependent on others. SW also explained that she may have feelings of guilt. SWdiscussed the potential psychiatric side effects of post-transplant medications. SW explained that these medications, particularly prednisone, can cause mood swings and amplify any underlying emotional states. SW verbally discussed the patient's psychosocial evaluation with the customer support coordinator (Josie Cano). The patient participated in the interview and she has a good understanding of what she will need to do to be listed for liver transplant. Her care plan and my recommendations are listed below. She HAS psychosocial barriers at this time. - Patient to continue CD treatment and demonstrate 1-year of sobriety due to polysubstance abuse history - Patient to be determined if transplant psychologist referral is indicated, predicated on dual-dx treatment through [facility] - Patient to determine [facility], [facility] or dual-listing decision Recommendations: Patient has a history of polysubstance abuse (alcohol, cocaine, heroin/fentanyl, marijuana). SW discussed that patient will required to maintain sobriety from all substances at least 1 year, with continued CD treatment. SW discussed re-evaluation after 6 months, if re-referred by hepatology due to medical indication. She has clear instructions of what he will need for post-transplant support and transportation. Sheis aware and is agreeable to the plan. SW will follow as needed in the transplant clinic. Patient was provided SW contact name and phone number for additional needs. ASIM Selby, HEAD SCHOOL CUSTODIAN [phone] TRANSPLANT PSYCH NOTEWRITER: Txp Clinic Entry Point: Pre-pre Clinic Social Work Assessment: New Patient SW Evaluation Location: Pre-pre Clinic Patient Barriers & Recommendations: Barriers Polysubstance Use < 12 months: Individual (12 weeks) Non-Adherence/AMA: Monitor Adherence documented in this encounter Plan of Treatment Not on file documented as of this encounter Visit Diagnoses Not on filedocumented in this encounter Additional Health Concerns Assessment Noted Time PHQ-9 Depression Total Score: 13 024 11:52 AM EDT documented as of this encounter Care Teams Machine Engineer Relationship Specialty Start Date End Date Yonatan Graves DO [address] [place] [address] PCP - General 09/02/23 Farida Ortega NP [address] [place] [id number] Referring Physician Gastroenterology 09/02/23 documented as of this encounter
--- OUTSIDE RECORDS SUMMARY | 2024-05-11 18:30 | XMS_ITS | Encounter Summary ---
Author Organization [facility] Address [address] [place] [address] Care Team Providers Care Dry Transfer Worker Name Role Phone Yonatan Graves DO Primary Care Provider Farida Ortega APPLE THINNER Unavailable [phone] Source Comments This information has been disclosed [...] release of HIV test results or diagnoses. [id number] Health Encounter Details Date Type Department Care Team (Late st Contact Info) Description 09/11/2023 Chart Note [facility] Liver Transplant at [address], [address] [place] [address] Abdullahi Cano RN Multi-disciplinary Hepatobiliary Case Conference Review: Social History Tobacco Use Types Packs/Day Years [...] Progress Notes * Abdullahi Cano RN - 09/11/2023 6:50 AM EDT Multi-disciplinary Hepatobiliary Case Conference Review: Mindy Wade is a 33 y.o.female reviewed today at the Hepatobiliary Multidisciplinary Tumor Board.The patient's history, imaging and pathology were reviewed today in the presence of representativesfrom Transplant Surgery, Surgical Oncology, Medical Oncology, Radiation Oncology, Diagnostic Radiology, Interventional Radiology and Pathology. Diagnosis: HCC Case Presented by Dr. Hurt. Reviewed the following imaging: ABD MRI 08/18/23. 33 yo F with decompensated cirrhosis due to alcohol.Review MRI from Jul 2023. Prior MRI in [place] December 2022 The recommendations from this multidisciplinary discussion was for: No measurable HCC noted in segment 2 or segment 3. Plan is to repeat MRI at [facility] in October. *This document represents the recommendations of the practitioners in attendance as of the date of this conference. These recommendations do not imply a patient consultation, nor do they dictate an agreed treatment plan, but rather are to be used as a resource for practitioners when determining thefinal treatment plan. The responsibility for the final treatment plan and the ultimate standard care remains with the treating physicians. documented in this encounter Plan of Treatment Not on file documented as of this encounter Visit Diagnoses Not on filedocumented in this encounter Care Teams Dry Transfer Worker Relationship Specialty Start Date End Date Yonatan Graves DO [address] [place] [address] PCP - General 09/02/23 Farida Ortega NP [address] [place] [address] Referring Physician Gastroenterology 09/02/23 documented as of this encounter
--- OUTSIDE RECORDS SUMMARY | 2024-05-11 18:30 | XMS_ITS | Encounter Summary ---
Author Organization [facility] Address [address] [place] [address] Care Team Providers Care Software Controls Engineer Name Role Phone Yonatan Graves DO Primary Care Provider Farida Ortega ON AIR DIRECTOR Unavailable [phone] Source Comments This information has been disclosed [...] release of HIV test results or diagnoses. [id number] Encounter Details Date Type Department Care Team (Latest Contact Info) Description 09/05/2023 4:09 PM EDT - 09/05/2023 11:59 PM EDT Hospital Encounter [facility] Radiology at [facility] [address] [facility] [place] [address] System, Provider Not In Discharge [...] on filedocumented in this encounter Care Teams Software Controls Engineer Relationship Specialty Start Date End Date Yonatan Graves DO [address] [place] [address] PCP - General 09/02/23 Farida Ortega, ON AIR DIRECTOR [address] [place] [address] Referring Physician Gastroenterology 09/02/23 documented as of this encounter
--- OUTSIDE RECORDS SUMMARY | 2024-05-11 18:30 | XMS_ITS | Encounter Summary ---
Author Organization [facility] Address [facility] [place] [address] Care Team Providers Care Fine Chemicals Operator Name Role Phone Yonatan Graves DO Primary Care Provider Farida Ortega ENAMEL FINISHER Unavailable [phone] Source Comments This information has been disclosed [...] release of HIV test results or diagnoses. [id number] Health Reason for Visit * Reason Comments Imaging Encounter Details Date Type Department Care Team (Late st Contact Info) Description 09/05/2023 Telephone [facility] G[facility]enterology at [facility] [address] [facility], [address] [facility] [place] [address] Agustin Hurt MD Imaging Social History Tobacco Use Types Packs/Day Years Used Date Smoking Tobacco: Never Assessed Comments No Sex and Gender Information Value Date Recorded Sex Assigned at Not on file Legal Sex Female 7:36 PM EDT Gender Identity Not on file Sexual Orientation Not on file documented as of this encounter Miscellaneous Notes * Telephone Encounter - Britney Ann RN - 09/05/2023 2:04 PM EDT RN called and requested MRI of abd from 04-08-23 & 08-18-23. documented in this encounter Plan of Treatment Not on file documented as of this encounter Visit Diagnoses Not on filedocumented in this encounter Care Teams Fine Chemicals Operator Relationship Specialty Start Date End Date Yonatan Graves DO [address] [place] [address] PCP - General 09/02/23 Farida Ortega, ENAMEL FINISHER [address] [place] [address] Referring Physician Gastroenterology 09/02/23 documented as of this encounter
--- OUTSIDE RECORDS SUMMARY | 2024-05-11 18:30 | XMS_ITS | Encounter Summary ---
Author Organization [facility] Address [address] [place] [address] Care Team Providers Care Costing Analyst Name Role Phone Yonatan Graves DO Primary Care Provider Adryan Bearden Unavailable Encounter Details Date Type Department Care Team (Latest Contact Info) Description 12/29/2023 Travel Social History Tobacco Use Types Packs/Day Years Used Date Smoking Tobacco: Former Cigarettes Q uit: 05/14/2019 Passive Smoke Exposure: Past Smokeless Tobacco: Never Alcohol Use Standard Drinks/Week Comments Not Currently 0 (1 standard drink = 0.6 oz pure alcohol) Last drink was first week of July 2023 PHQ-2 Answer Date Recorded Patient Health Questionnaire-2 Score 2 12/29/2023 PHQ-9 Answer Date Recorded Patient Health Questionnaire-9 Score 12 12/29/2023 PHQ-2A Answer Date Recorded Patient Health Questionnaire-2 [...] Time PHQ-9 Depression Total Score: 12 024 11:44 AM EDT A fall risk assessment has been complete d for the patient 10/07/2023 9:46 AM EDT A Body Mass Index follow-up plan has been documented for the patient 01/02/2024 3:57 PM EDT documented as of this encounter Care Teams Costing Analyst Relationship Specialty Start Date End Date Yonatan Graves DO [address] [facility] [address] [place] [address] PCP - General 09/24/22 Adryan Bearden PA [facility] [place] [phone] Referring Physician Gastroenterology 09/24/22 documented as of this encounter
--- OUTSIDE RECORDS SUMMARY | 2024-05-11 18:30 | XMS_ITS | Encounter Summary ---
Author Organization [facility] Address [address] [place] [address] Care Team Providers Care Splicing Machine Operator Automatic Name Role Phone Unknown, Attending Provider Primary Care Provide r Unavailable Source Comments This information has been [...] release of HIV test results or diagnoses. [id number] Health Encounter Details Date Type Department Care Team (Latest Contact Info) Description 09/01/2023 Travel Social History Tobacco Use Types Packs/Day [...] on filedocumented in this encounter Care Teams Splicing Machine Operator Automatic Relationship Specialty Start Date End Date Unknown, Attending Provider PCP - General 09/01/2308/31 documented as of this encounter
--- OUTSIDE RECORDS SUMMARY | 2024-05-11 18:30 | XMS_ITS | Encounter Summary ---
Author Organization [facility] Address [address] [place] [address] Care Team Providers Care Truck Unloader Name Role Phone Yonatan Graves DO Primary Care Provider Adryan Bearden Unavailable Encounter Details Date Type Department Care Team (Latest Contact Info) Description 04/20/2024 Travel Social History Tobacco Use Types Packs/Day [...] Time PHQ-9 Depression Total Score: 12 024 8:28 AM EDT A fall risk assessment has been complete d for the patient 10/07/2023 9:46 AM EDT A Body Mass Index follow-up plan has been documented for the patient 04/12/2024 4:46 PM EDT documented as of this encounter Care Teams Truck Unloader Relationship Specialty Start Date End Date Yonatan Graves DO [address] [facility] [address] [place] [address] PCP - General 09/24/22 Adryan Bearden PA [facility] [place] [phone] Referring Physician Gastroenterology 09/24/22 documented as of this encounter
--- OUTSIDE RECORDS SUMMARY | 2024-05-11 18:30 | XMS_ITS | Encounter Summary ---
Author Organization [facility] Address [address] [place] [address] Care Team Providers Care Teaching Specialists Name Role Phone Yonatan Graves DO Primary Care Provider Farida Ortega DIGITAL PRINTER Unavailable [phone] Source Comments This information has been disclosed [...] release of HIV test results or diagnoses. [id number] Encounter Details Date Type Department Care Team (Latest Contact Info) Description 10/22/2023 Travel Social History Tobacco Use Types Packs/Day [...] documented as of this encounter Care Teams Teaching Specialists Relationship Specialty Start Date End Date Yonatan Graves DO [address] [place] [address] PCP - General 09/02/23 Farida Ortega NP [address] [place] [address] Referring Physician Gastroenterology 09/02/23 documented as of this encounter
--- OUTSIDE RECORDS SUMMARY | 2024-05-11 18:30 | XMS_ITS | Encounter Summary ---
Author Organization [facility] Address [address] [place] [address] Care Team Providers Care Assault Amphibious Vehicle Officer Name Role Phone Yonatan Graves DO Primary Care Provider Farida Ortega HOOP PUNCH AND COILER OPERATOR HELPER Unavailable [phone] Source Comments This information has been disclosed [...] release of HIV test results or diagnoses. [id number] Health Encounter Details Date Type Department Care Team (Late st Contact Info) Description 09/05/2023 Telephone [facility] Liver Transplant at [address], [address] [place] [address] Zeny Bhakta, PLEATER HAND, CHICK SEXER Social History Tobacco Use Types Packs/Day Years [...] on filedocumented in this encounter Care Teams Assault Amphibious Vehicle Officer Relationship Specialty Start Date End Date Yonatan Graves DO [address] [place] [address] PCP - General 09/02/23 Farida Ortega, HOOP PUNCH AND COILER OPERATOR HELPER [id number] [place] [address] Referring Physician Gastroenterology 09/02/23 documented as of this encounter
--- OUTSIDE RECORDS SUMMARY | 2024-05-11 18:30 | XMS_ITS | Encounter Summary ---
Author Organization [facility] Address [address] [place] [address] Care Team Providers Care Scarfer Name Role Phone Yonatan Graves DO Primary Care Provider Adryan Bearden Unavailable Encounter Details Date Type Department Care Team (Latest Contact Info) Description 05/09/2024 Travel Social History Tobacco Use Types Packs/Day [...] documented as of this encounter Care Teams Scarfer Relationship Specialty Start Date End Date Yonatan Graves DO [address] [facility] [address] [place] [address] PCP - General 09/24/22 Adryan Bearden PA [facility] [phone] Referring Physician Gastroenterology 09/24/22 documented as of this encounter
--- OUTSIDE RECORDS SUMMARY | 2024-05-11 18:30 | XMS_ITS ---
Author Organization [facility] Address [address] [place] [address] Care Team Providers Care Director Corporate Compliance Name Role Phone Yonatan Graves DO Primary Care Provider Farida Ortega CENTRIFUGAL SPINNER Unavailable [phone] Transplant Episode Liver Candidate [facility] ([place], [place]) - [facility] Referred on 09/02/2023 Marked as Ineligible on 10/29/2023 Reason: Psychosocial Impediments Liver CoordinatorAbdullahi Cano RN Phone: N/A Fax: N/A Email: N/A Scores Score Value Updated Expires Exceptions/Lorena sons CPRA Not available UNOS MELD Not available MELD (Calc) 23 02/04/2024 Care Team Name Role Phone Fax Email Abdullahi Cano RN Liver Coordinator N/A N/A N/A Abdullahi Cano RN Txp Pre Coordinator N/A N/A N/A Farida Ortega NP Referring Physician N/A N/A N/A ASIM Selby, CONFERENCE MANAGER Txp Assistant Food Service Manager N/A N/A N/A Events Pre-Transplant Referred: 09/02/2023
--- OUTSIDE RECORDS SUMMARY | 2024-05-11 18:30 | XMS_ITS | Encounter Summary ---
Author Organization [facility] Address [address] [place] [address] Care Team Providers Care Paper Pattern Folder Name Role Phone Yonatan Graves DO Primary Care Provider Adryan Bearden Unavailable Encounter Details Date Type Department Care Team (Latest Contact Info) Description 04/11/2024 Travel Social History Tobacco Use Types Packs/Day [...] documented as of this encounter Care Teams Paper Pattern Folder Relationship Specialty Start Date End Date Yonatan Graves DO [address] [facility] [address] [place] [address] PCP - General 09/24/22 Adryan Bearden PA [facility] [phone] Referring Physician Gastroenterology 09/24/22 documented as of this encounter
--- OUTSIDE RECORDS SUMMARY | 2024-05-11 18:30 | XMS_ITS | Encounter Summary ---
Author Organization [facility] Address [address] [place] [address] Care Team Providers Care Receptionist Airline Lounge Name Role Phone Yonatan Graves DO Primary Care Provider Farida Ortega MEDICAL VAN DRIVER Unavailable [phone] Source Comments This information has been disclosed [...] release of HIV test results or diagnoses. [id number] Health Encounter Details Date Type Department Care Team (Late st Contact Info) Description 09/04/2023 Chart Note [facility] Kidney Transplant at [address], [address] [place] [phone] Niya Tripp Patient is financially cleared for liver transplant evaluation Social History Tobacco Use Types Packs/Day Years Used Date Smoking Tobacco: Never Assessed Comments No Sex and Gender Information Value Date Recorded Sex Assigned at Not on file Legal Sex Female 7:36 PM EDT Gender Identity Not on file Sexual Orientation Not on file documented as of this encounter Progress Notes * Niya Tripp - 09/04/2023 9:48 AM EDT Patient is financially cleared for liver transplant evaluation Evaluation for patient/donor needs to be done at [facility] documented in this encounter Plan of Treatment Not on file documented as of this encounter Visit Diagnoses Not on filedocumented in this encounter Care Teams Receptionist Airline Lounge Relationship Specialty Start Date End Date Yonatan Graves DO [address] [place] [address] PCP - General 09/02/23 Farida Ortega, MEDICAL VAN DRIVER [address] [place] [address] Referring Physician Gastroenterology 09/02/23 documented as of this encounter
--- OUTSIDE RECORDS SUMMARY | 2024-05-11 18:30 | XMS_ITS | Encounter Summary ---
Author Organization [facility] Address [address] [place] [address] Care Team Providers Care Clinical Trials Data Coordinator Name Role Phone Yonatan Graves DO Primary Care Provider Adryan Bearden Unavailable Encounter Details Date Type Department Care Team (Latest Contact Info) Description 03/16/2024 Travel Social History Tobacco Use Types Packs/Day [...] documented as of this encounter Care Teams Clinical Trials Data Coordinator Relationship Specialty Start Date End Date Yonatan Graves DO [address] [facility] [address] [place] [address] PCP - General 09/24/22 Adryan Bearden PA [facility] [phone] Referring Physician Gastroenterology 09/24/22 documented as of this encounter
--- OUTSIDE RECORDS SUMMARY | 2024-05-11 18:30 | XMS_ITS | Encounter Summary ---
Author Organization [facility] Address [address] [place] [address] Care Team Providers Care Quartz Cutter Name Role Phone Yonatan Graves DO Primary Care Provider Farida Ortega SEWING TECHNIQUES DEMONSTRATOR Unavailable [phone] Source Comments This information has been disclosed [...] release of HIV test results or diagnoses. [id number] Health Encounter Details Date Type Department Care Team (Late st Contact Info) Description 09/02/2023 Orders Only [facility] Lab [address] [place] [phone] Alyssa Lerma Social History Tobacco Use Types Packs/Day Years [...] on filedocumented in this encounter Care Teams Quartz Cutter Relationship Specialty Start Date End Date Yonatan Graves DO [address] [place] [address] PCP - General 09/02/23 Farida Ortega, SEWING TECHNIQUES DEMONSTRATOR [address] [place] [id number] Referring Physician Gastroenterology 09/02/23 documented as of this encounter
--- OUTSIDE RECORDS SUMMARY | 2024-05-11 18:30 | XMS_ITS | Encounter Summary ---
Author Organization [facility] Address [address] [place] [address] Care Team Providers Care Anode Crew Supervisor Name Role Phone Yonatan Graves DO Primary Care Provider Adryan Bearden Unavailable Encounter Details Date Type Department Care Team (Latest Contact Info) Description 01/12/2024 Travel Social History Tobacco Use Types Packs/Day Years Used Date Smoking Tobacco: Former Cigarettes Q uit: 05/14/2019 Passive Smoke Exposure: Past Smokeless Tobacco: Never Alcohol Use Standard Drinks/Week Comments Not Currently 0 (1 standard drink = 0.6 oz pure alcohol) Last drink was first week of July 2023 PHQ-2 Answer Date Recorded Patient Health Questionnaire-2 Score 2 01/12/2024 PHQ-9 Answer Date Recorded Patient Health Questionnaire-9 Score 11 01/12/2024 PHQ-2A Answer Date Recorded Patient Health Questionnaire-2 [...] Time PHQ-9 Depression Total Score: 11 024 11:07 AM EDT A fall risk assessment has been complete d for the patient 10/07/2023 9:46 AM EDT A Body Mass Index follow-up plan has been documented for the patient 01/02/2024 3:57 PM EDT documented as of this encounter Care Teams Anode Crew Supervisor Relationship Specialty Start Date End Date Yonatan Graves DO [address] [facility] [address] [place] [address] PCP - General 09/24/22 Adryan Bearden PA [facility] [phone] Referring Physician Gastroenterology 09/24/22 documented as of this encounter
--- OUTSIDE RECORDS SUMMARY | 2024-05-11 18:30 | XMS_ITS | Encounter Summary ---
Author Organization [facility] Address [facility] [place] [address] Care Team Providers Care Bridge Painter Name Role Phone Yonatan Graves DO Primary Care Provider Farida Ortega BACKER UP Unavailable [phone] Source Comments This information has been disclosed [...] release of HIV test results or diagnoses. [id number] Reason for Visit * Reason Comments Decompensated hepatic cirrhosis Encounter Details Date Type Department Care Team (Latest Contact Info) Description 10/23/2023 9:40 AM EDT Office Visit [facility] Gastroenterology at [facility] Office [address] [facility], [address] [address] Agustin Hurt MD Alcoholic cirrhosis of [...] Sign Reading Time Taken Comments Blood Pressure 103/65 10/23/2023 10:12 AM EDT Pulse 99 10/23/2023 10:12 AM EDT Temperature - - Respiratory Rate - - Oxygen Saturation 100% 10/23/2023 10:12 AM EDT Inhaled Oxygen Concentration 100% 10/23/2023 1 0:12 AM EDT Weight 63.5 kg (140 lb) 10/23/2023 10:12 AM EDT Height 165.1 cm (5' 5 ) 10/23/2023 10:12 AM EDT Body Mass Index 23.3 10/23/2023 10:12 AM EDT documented in this encounter Patient Instructions * Patient Instructions* Agustin Hurt MD - 10/23/2023 9:40 AM EDT Labs today Continue lasix 40 mg twice a day Continue spironolactone 100 mg twice a day MRI this month Return to clinic in 3-4 months documented in this encounter Progress Notes * Agustin Hurt MD - 10/23/2023 9:40 AM EDT Hepatology Clinic Note Name: Mindy Wade CSN: [id number] Referring Physician: Hilda Shepherd MD Chief Complaint: [...] ago and was treated with Harvoni in 2017 and achieved SVR. She contracted hepatitis C [...] diagnosed with liver disease. She then saw [facility] transplant center in October 2022 for [...] social work. Patient was evaluated by transplant director social welfare at in December 2022, where it was [...] Jul 2023 and then underwent detox at [facility] The patient states that she used to only socially drink alcohol and alcohol use started maybe 5 years ago. She said over the time she started to increase her alcohol intake up to 6 wine coolers a day. From the social work at [facility] it was felt that the patient [...] GV. 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 She was found to be hyponatremic. Per their direction she was asked to reduce her dosage of the diuretics to Aldactone 100 mg twice a day and Lasix 40 mg twice a day and take as needed doses of the water pills if her swelling worsens. She states that usually on most days she has been taking an ad ditional dose of the water pill. She thinks that she needs it as her abdomen gets distended. She iscontinue doing a low-salt diet. No issues with bleeding constipation or diarrhea. Her bilirubin hasimproved down to 3.5 with cessation of alcohol. She saw our transplant director social welfare and it was recommended that she demonstrate 1 year of sobriety due to polysubstance abuse history and continue chemical dependency treatment The following portions of the patient's history [...] Social History Tobacco Use Smoking status: Former Packs/day: 0.25 Years: 1.00 Additional pack years: 0.00 Total pack years: 0.25 Types: Cigarettes Quit date: 07/22/2015 Years since quittin.2 Smokeless tobacco: Never Substance Use Topics Alcohol use: Not Currently Medications Current Medications as of 10/23/2023 10:30 AM Outpatient Medications Quantity Refills Start End furosemide (LASIX) 20 MG tablet 180 tablet 0 09/11/2023 -- furosemide (LASIX) 40 MG tablet -- -- -- gabapentin (NEURONTIN) 300 MG capsule -- -- -- hydrOXYzine HCL (ATARAX) 25 MG tablet -- -- -- propranoloL (INDERAL) 10 MG tablet -- -- -- spironolactone (ALDACTONE) 100 MG tablet -- -- -- spironolactone (ALDACTONE) 50 MG tablet 180 tablet 0 09/11/2023 -- Allergies Allergies Allergen Reactions Amoxicillin Rash Morphine Rash Penicillins Rash Vitals: Vitals: 10/23/23 1012 BP: 103/65 Pulse: 99 SpO2: 100% Physical Exam Gen: Well-developed, well [...] Laboratory: Lab Results Component Value Date WBC 7.6 09/08/2023 HGB 13.0 09/08/2023 HCT 36.6 09/08/2023 MCV 109.1 (H) 09/08/2023 PLT 117 (L) 09/08/2023 Lab Results Component Value Date NA 133 09/08/2023 K 4.1 09/08/2023 CL 97 (L) 09/08/2023 CO2 28 09/08/2023 BUN 9 09/08/2023 CREATININE 0.78 09/08/2023 GLUCOSE 84 09/08/2023 CALCIUM 9.3 09/08/2023 PHOS 4.2 09/08/2023 Lab Results Component Value Date AST 47 (H) 09/08/2023 ALT 42 09/08/2023 BILITOT 7.3 (H) 09/08/2023 BILIDIRECT 2.76 (H) 09/08/2023 PROT 7.2 09/08/2023 ALBUMIN 3.4 (L) 09/08/2023 ALBUMIN 3.4 (L) 09/08/2023 ALKPHOS 139 (H) 09/08/2023 Lab Results Component Value Date INR 1.4 (H) 09/08/2023 No results found for: HAV , HEPAIGM [...] the past 2079 hour(s)). Assessment/Plan: MELD 3.0: 21 at 09/08/2023 10:32 AM Calculated from: Serum Creatinine: 0.78 mg/dL (Using min of 1 mg/dL) at 09/08/2023 10:32 AM Serum Sodium: 133 mmol/L at 09/08/2023 10:32 AM Total Bilirubin: 7.3 mg/dL at 09/08/2023 10:32 AM Serum Albumin: 3.4 g/dL at 09/08/2023 10:32 AM INR(ratio): 1.4 at 09/08/2023 10:32 AM Age at listing (hypothetical): 33 years Sex: Female at 09/08/2023 10:32 AM Mindy Wade is an 33 y.o. [...] since last year along with a positive rum alcohol level in July 2023 after [...] to a 2g low sodium diet. She developed hyponatremia onlasix 60 mg BID and aldactone 150 mg BID. Her fluid studies are consistent with portal hypertension. She has been taking Lasix 40 mg in the morning and 60 mg in the evening and Aldactone 100 mg in the morning and 150 mg in the evening as she feels that she needs that extra dose in the evening as her belly gets distended. I am not sure abdomen is distended due to ascites or there are any other issues going on. We will see what her electrolytes do today and monitor her sodium closely - Hepatic Encephalopathy: No issues with overt [...] We will repeat a scan in October 2023 - Immunizations: Immune to Hepatitis A . [...] be a transplant candidate based on the ps ychosocial evaluation. She was seen by our transplant director social welfare here at and patient needed to demonstrate 1 year of sobriety which would be July 2024 RTC in 3-4 mos This note was completely edited, written [...] liver pathology. Agustin Hurt MD Transplant Hepatology [phone] (p) * Britney Ann RN - 10/23/2023 9:40 AM EDT RN went to room to assist pt is scheduling MRI. Pt declined having done here at [facility]. Wants done locally but they unsure whre. RN prined order. RN directed if we need to fax order once determinewhere and location would lie to have done, let office know and we can fax the order. documented in this encounter Plan of Treatment Not on file documented as of this encounter Results * (ABNORMAL) Protime-INR (10/23/2023 11:33 AM EDT) Protime 17.8(H) 12.1 - 15.1 seconds 10/23/2023 7:35 PM EDT [facility] INR 1.4(H) 0.9 - 1.1 10/23/2023 7:35 PM EDT [facility] Comment: RECOMMENDED THERAPEUTIC RANGES USING INR : ?Stable oral anticoagulant therapy: ? 2.0 - 3.0 ?Mechanical prosthetic heart valve: ? 2.5 - 3.5 ?Recurrent acute myocardial infarction: ? 2.5 - 3.5 Plasma 10/23/2023 11:3 3 AM EDT 10/23/2023 6:52 PM EDT Agustin Hurt MD LAB BLOOD ORDERABLES Final Res ult [facility] [address] [place] [address], [facility] [place] * (ABNORMAL) CBC (10/23/2023 11:33 AM EDT) WBC 4.8 3.8 - 10.8 10E3/uL 10/23/2023 7:05 PM EDT [facility] RBC 2.99(L) 3.80 - 5.10 10E6/uL 10/23/2023 7:05 PM EDT [facility] Hemoglobin 11.4(L) 11.7 - 15.5 g/dL 10/23/2023 7:05 PM EDT [facility] Hematocrit 32.0(L) 35.0 - 45.0 % 10/23/2023 7:05 PM EDT [facility] MCV 107.2(H) 80.0 - 100.0 fL 10/23/2023 7:05 PM EDT [facility] MCH 38.1(H) 27.0 - 33.0 pg 10/23/2023 7:05 PM EDT [facility] MCHC 35.5 32.0 - 36.0 g/dL 10/23/2023 7:05 PM EDT [facility] RDW 14.1 11.0 - 15.0 % 10/23/2023 7:05 PM EDT [facility] Platelets 98(L) 140 - 400 10E3/uL 10/23/2023 7:05 PM EDT [facility] MPV 9.1 7.5 - 11.5 fL 10/23/2023 7:05 PM EDT [facility] Whole Blood 10/23/2023 11:3 3 AM EDT 10/23/2023 6:56 PM EDT us Agustin Hurt MD LAB BLOOD ORDERABLES Final Res ult [facility] [address] [place] [address], [facility] [place] * (ABNORMAL) Renal Function Panel w/EGFR (10/23/2023 11:33 AM EDT) Sodium 132(L) 133 - 146 mmol/L 10/23/2023 7:15 PM EDT [facility] Potassium 4.0 3.5 - 5.3 mmol/L 10/23/2023 7:15 PM EDT [facility] Chloride 97(L) 98 - 110 mmol/L 10/23/2023 7:15 PM EDT [facility] CO2 27 21 - 33 mmol/L 10/23/2023 7:15 PM EDT [facility] Anion Gap 8 3 - 16 mmol/L 10/23/2023 7:15 PM EDT [facility] BUN 10 7 - 25 mg/dL 10/23/2023 7:15 PM EDT [facility] Creatinine 0.88 0.60 - 1.30 mg/dL 10/23/2023 7:15 PM EDT [facility] Glucose 91 70 - 100 mg/dL 10/23/2023 7:15 PM EDT [facility] Calcium 9.0 8.6 - 10.3 mg/dL 10/23/2023 7:15 PM EDT [facility] Phosphorus 4.1 2.1 - 4.7 mg/dL 10/23/2023 7:15 PM EDT [facility] Albumin 3.4(L) 3.5 - 5.7 g/dL 10/23/2023 7:15 PM EDT [facility] Osmolality, Calculated 273(L) 278 - 305 mOsm/kg 10/23/2023 7:15 PM EDT [facility] EGFR 89 10/23/2023 7:15 PM EDT [facility] Comment:As of 2021, the estimated GFR [...] MD LAB BLOOD ORDERABLES Final Res ult [facility] [address] * (ABNORMAL) Hepatic Function Panel (10/23/2023 11:33 AM EDT) Total Bilirubin 3.6(H) 0.0 - 1.5 mg/dL 10/23/2023 7:15 PM EDT [facility] Bilirubin, Direct 1.40(H) 0.00 - 0.40 mg/dL 10/23/2023 7:15 PM EDT [facility] AST 53(H) 13 - 39 U/L 10/23/2023 7:15 PM EDT [facility] ALT 45 7 - 52 U/L 10/23/2023 7:15 PM EDT [facility] Alkaline Phosphatase 136(H) 36 - 125 U/L 10/23/2023 7:15 PM EDT [facility] Total Protein 7.2 6.4 - 8.9 g/dL 10/23/2023 7:15 PM EDT [facility] Albumin 3.4(L) 3.5 - 5.7 g/dL 10/23/2023 7:15 PM EDT [facility] Bilirubin, Indirect 2.20(H) 0.00 - 1.10 mg/dL 10/23/2023 7:15 PM EDT [facility] Plasma 10/23/2023 11:3 3 AM EDT 10/23/2023 6:57 PM EDT us Agustin Hurt MD LAB BLOOD ORDERABLES Final Res ult [facility] [address] documented in this encounter Visit Diagnoses Diagnosis 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)- Primary documented in this encounter Additional Health Concerns Assessment Noted Time PHQ-9 Depression Total Score: 13 024 11:52 AM EDT documented as of this encounter Care Teams Bridge Painter Relationship Specialty Start Date End Date Yonatan Graves DO [address] [place] [address] PCP - General 09/02/23 Farida Ortega, HARLEEN [address] [place] [address] Referring Physician Gastroenterology 09/02/23 documented as of this encounter
--- OUTSIDE RECORDS SUMMARY | 2024-05-11 18:30 | XMS_ITS | Encounter Summary ---
Author Organization [facility] Address [address] [place] [id number] Care Team Providers Care Intellectual Property Paralegal Name Role Phone Yonatan Graves DO Primary Care Provider Farida Ortega SCANNING MANAGER Unavailable [phone] Source Comments This information has been disclosed [...] release of HIV test results or diagnoses. [id number] Reason for Visit * Reason Comments Labs Only Encounter Details Date Type Department Care Team (Late st Contact Info) Description 09/25/2023 1:00 PM EDT Specimen [facility] [address] [address] [place] [address] Agustin Hurt MD Pre-transplant evaluation for chronic liver disease; Alcoholic cirrhosis, unspecified whether ascites present ([facility]) Social History Tobacco Use Types Packs/Day Years [...] Name Priority Date/Time Associated Diagnosis Comments URINE DRUG COMPREHENSIVE PANEL, CONFIRMATION Routine 09/25/2023 1:12 PM EDT Pre-transplant evaluation for chronic liver disease Alcoholic cirrhosis, unspecified whether ascites present ([facility]-HCC) documented in this encounter Results * Urine Drug Screen, Comprehensive Panel Screen/Confirmation (09/25/2023 1:12 PM EDT) BARBITURATES NOT PRESENT 09/29/2023 1:52 PM EDT [facility] BENZODIAZEPINES NOT PRESENT 09/29/19 1:52 PM EDT [facility] CANNABINOIDS PRESENT 09/29/2023 1:52 PM EDT [facility] THC-COOH 66 ng/mL 09/29/2023 1:52 PM EDT [facility] CLUB CONCIERGE STIMULANTS NOT PRESENT 1:52 PM EDT [facility] OPIOID ANALGESICS NOT PRESENT 2023 1:52 PM EDT [facility] OPIOID ANTAGONISTS NOT PRESENT 09/28 1:52 PM EDT [facility] SEDATIVES/MUSCLE RELAXANTS NOT PRESENT 09/29/2023 1:52 PM EDT [facility] TRICYCLIC ANTIDEPRESSANTS NOT PRESENT 09/29/2023 1:52 PM EDT [facility] Creatinine, Ur 26.30 mg/dL 09/26/2023 10:39 AM EDT [facility] Comment:Reference range not established for this test. pH 7.0 4.7 - 7.8 09/26/2023 10:39 AM EDT [facility] Specific [place] 1.013 1.003 - 1.035 09/26/2023 10:39 AM EDT [facility] Urine 09/25/2023 1:12 PM EDT 09/25/2023 1:23 PM EDT Narrative [facility] - 09/29/2023 1:52 PM EDT This test has been developed and its performance characteristics determined by [facility] which is certified under the Clinical Laboratory Improvement Amendment of 1988 (CLIA-88) to perform high complexity testing. ??The test has not been cleared or approved by the US Food and Drug Administration (FDA). The FDA has determined that such clearance is not necessary. ??The test should be used for clinical purposes and is not regarded as investigational. us Agustin Hurt MD URINE ORDERABLES Final Result [facility] [address] [place] [id number], [facility] documented in this encounter Visit Diagnoses Diagnosis Pre-transplant evaluation for chronic liver disease Alcoholic cirrhosis, unspecified whether ascites present ([facility]) documented in this encounter Additional Health Concerns Assessment Noted Time PHQ-9 Depression Total Score: 13 024 11:52 AM EDT documented as of this encounter Care Teams Intellectual Property Paralegal Relationship Specialty Start Date End Date Yonatan Graves DO [address] [place] [address] PCP - General 09/02/23 Farida Ortega, SCANNING MANAGER [address] [place] [address] Referring Physician Gastroenterology 09/02/23 documented as of this encounter
--- OUTSIDE RECORDS SUMMARY | 2024-05-11 18:30 | XMS_ITS | Encounter Summary ---
Author Organization [facility] Address [address] [place] [address] Care Team Providers Care Nylon Winder Name Role Phone Yonatan Graves DO Primary Care Provider Farida Ortega SERVICE SECRETARY Unavailable [phone] Source Comments This information has been disclosed [...] release of HIV test results or diagnoses. [id number] Health Encounter Details Date Type Department Care Team (Late st Contact Info) Description 09/25/2023 Orders Only [facility] at [address], [address] [place] [address] Abdullahi Cano RN Pre-transplant evaluation for chronic liver disease (Primary Dx); Alcoholic cirrhosis, unspecified whether ascites present ([facility]) Social History Tobacco Use Types Packs/Day [...] documented as of this encounter Results * Urine Drug Screen, Comprehensive Panel Screen/Confirmation (09/25/2023 1:12 PM EDT) BARBITURATES NOT PRESENT 09/29/2023 1:52 PM EDT [facility] BENZODIAZEPINES NOT PRESENT 09/29/19 1:52 PM EDT [facility] CANNABINOIDS PRESENT 09/29/2023 1:52 PM EDT [facility] THC-COOH 66 ng/mL 09/29/2023 1:52 PM EDT [facility] REFRIGERATION PERSON STIMULANTS NOT PRESENT 1:52 PM EDT [facility] OPIOID ANALGESICS NOT PRESENT 2023 1:52 PM EDT [facility] OPIOID ANTAGONISTS NOT PRESENT 09/28 1:52 PM EDT [facility] SEDATIVES/MUSCLE RELAXANTS NOT PRESENT 09/29/2023 1:52 PM EDT [facility] TRICYCLIC ANTIDEPRESSANTS NOT PRESENT 09/29/2023 1:52 PM EDT [facility] Creatinine, Ur 26.30 mg/dL 09/26/2023 10:39 AM EDT [facility] Comment:Reference range not established for this test. pH 7.0 4.7 - 7.8 09/26/2023 10:39 AM EDT [facility] Specific [place] 1.013 1.003 - 1.035 09/26/2023 10:39 AM EDT [facility] Urine 09/25/2023 1:12 PM EDT 09/25/2023 1:23 PM EDT Narrative [facility] - 09/29/2023 1:52 PM EDT This test has been developed and its performance characteristics determined by [facility] which is certified under the Clinical [...] Agustin Hurt MD URINE ORDERABLES Final Result [facility] [address] documented in this encounter Visit Diagnoses Diagnosis Pre-transplant evaluation for chronic liver disease- Primary Alcoholic cirrhosis, unspecified whether ascites present ([facility]-HCC) Pre-transplant evaluation for chronic liver disease Alcoholic cirrhosis, unspecified whether ascites present ([facility]-HCC) documented in this encounter Additional Health Concerns Assessment Noted Time PHQ-9 Depression Total Score: 13 024 11:52 AM EDT documented as of this encounter Care Teams Nylon Winder Relationship Specialty Start Date End Date Yonatan Graves DO [address] [place] [address] PCP - General 09/02/23 Farida Ortega, HARLEEN [address] [place] [address] Referring Physician Gastroenterology 09/02/23 documented as of this encounter
--- OUTSIDE RECORDS SUMMARY | 2024-05-11 18:30 | XMS_ITS | Encounter Summary ---
Author Organization [facility] Address [address] [place] [address] Care Team Providers Care Frame Bander Name Role Phone Yonatan Graves DO Primary Care Provider Adryan Bearden Unavailable Encounter Details Date Type Department Care Team (Latest Contact Info) Description 04/05/2024 Travel Social History Tobacco Use Types Packs/Day [...] documented as of this encounter Care Teams Frame Bander Relationship Specialty Start Date End Date Yonatan Graves DO [address] [facility] [address] [place] [address] PCP - General 09/24/22 Adryan Bearden PA [facility] [place] [phone] Referring Physician Gastroenterology 09/24/22 documented as of this encounter
--- OUTSIDE RECORDS SUMMARY | 2024-05-11 18:31 | XMS_ITS | Encounter Summary ---
Author Organization [facility] Address [address] [id number] Care Team Providers Care Insurance Billing Clerk Name Role Phone Yonatan Graves DO Primary Care Provider Adryan Bearden Unavailable Encounter Details Date Type Department Care Team (Late st Contact Info) Description 09/25/[address] [facility] [address] [place] [id number] Isabelle Broussard, RN [facility] [id number] [address] [id number] End-stage liver disease (CMS/HCC) (Primary Dx) Social History Tobacco Use Types Packs/Day Years Used Date Smoking Tobacco: Former Cigarettes Q uit: 05/14/2019 Passive Smoke Exposure: Past Smokeless Tobacco: Never Alcohol Use Standard Drinks/Week Comments Yes 3 (1 standard drink = 0.6 oz pur e alcohol) PHQ-2 Answer Date Recorded Patient Health Questionnaire-2 Score 1 09/22/2023 PHQ-9 Answer Date Recorded Patient Health Questionnaire-9 Score 7 09/22/2023 PHQ-2A Answer Date Recorded Patient Health Questionnaire-2 Score 0 05/29/2023 Comments No Sex and Gender Information Value Date Recorded Sex Assigned at Not on file Legal Sex Female 6:24 PM EDT Gender Identity Not on file Sexual Orientation Not on file documented as of this encounter Plan of Treatment Not on file documented as of this encounter Results * Phosphatidylethanol (PEth), Whole Blood, Quantitative (SO) (10/07/2023 8:09 AM EDT) PEth 16:0/18:2 (PLPEth) <10 ng/mL 10/09/2023 6:15 PM EDT [facility] ([facility]) PEth 16:0/18:1 (POPEth) <10 ng/mL 10/09/2023 6:15 PM EDT [facility] ([facility]) EER Peth See Note 10/09/2023 6:15 PM EDT [facility] ([facility]) PEth Interpretation See Comment 10/09/2023 6:15 PM EDT [facility] ([facility]) Blood Venous blood specimen / Unknown Venipuncture / Unknown 10/07/2023 8:09 AM EDT 10/07/2023 8:43 AM EDT Narrative [facility] ([facility]) - 10/09/2023 6:15 PM EDT PEth 16:0/18:1 (POPEth) Less than 10 ng/mL............Not detected Less than 20 ng/mL............Abstinence or light alcohol consumption 20 - 200 ng/mL................Moderate alcohol consumption Greater than 200 ng/mL........Heavy alcohol consumption or chronic alcohol use (Reference: Joycelyn Weller and Claude Ball 2018 J. Forensic Sci) Reference ranges are not well established. Authorized individuals can access the [facility] Enhanced Report using the following link: [email or web address] Phosphatidylethanol (PEth) is a group of phospholipids formed in the presence of ethanol, phospholipase D and phosphatidylcholine. PEth is known to be a direct alcohol biomarker. The predominant PEth homologues are PEth 16:0/18:1 (POPEth) and PEth 16:0/18:2 (PLPEth), which account for 37-46% and 26-28% of the total PEth homologues, respectively. PEth is incorporated into the phospholipid membrane of red blood cells and has a general half-life of 4-10 days and a window of detection of 2-4 weeks. However, the window of detection is longer in individuals who chronically or excessively consume alcohol. The limit of quantification is 10 ng/mL. Serial monitoring of PEth may be helpful in monitoring alcohol abstinence over time. PEth results should be interpreted in the context of the patient's clinical and behavioral history. Patients with advanced liver disease may have falsely elevated PEth concentrations (Frances FONTANEZ et al 2018, Alcoholism Clinical & Experimental Research). This test was developed and its performance characteristics determined by [facility]. It has not been cleared or approved by the U.S. Food and Drug Administration. This test was performed in a CLIA-certified laboratory and is intended for clinical purposes. Performed By: [facility] [address] [place] [id number] Tube Machine Operator Helper: Mark Atwood MD, PhD CLIA Number: [id number] Eloisa Natarajan MD LAB REF LAB BLOOD AND FLUI D ORD Final Result Performing Organization Address City/[facility]/ZIP Co de Phone Number [facility] ([facility]) [address] [place] [phone] * (ABNORMAL) Alpha Fetoprotein, Serum (10/07/2023 8:09 AM EDT) Alpha Fetoprotein, Serum 16.0(H) <10.0 ng/mL 10/07/2023 9:31 AM EDT [facility] Blood Venous blood specimen / Unknown Venipuncture / Unknown 10/07/2023 8:09 AM EDT 10/07/2023 8:[address] [facility] - 10/07/2023 9:31 AM EDT Performed by [facility] electrochemiluminescent immunoassay which is traceable to the 1st AFP IRP WHO Reference standard 72/255. Results obtained with different test methods or kits cannot be used interchangeably. Eloisa Natarajan MD LAB BLOOD ORDERABLES Final Result Performing Organization Address City/[facility]/ZIP Co de Phone Number HEALTHCARE LAB [address] [place] [address] * (ABNORMAL) Protime-INR (10/07/2023 8:09 AM EDT) Prothrombin Time 16.2(H) 12.0 - 14.3 sec LAB COAGULATION METHOD 10/07/2023 9:23 AM EDT [facility]ALTHCARE LAB INR 1.3(H) 0.9 - 1.1 LAB COAGULATION METHOD 10/07/2023 9:23 AM EDT [facility] Blood Venous blood specimen / Unknown Venipuncture / Unknown 10/07/2023 8:09 AM EDT 10/07/2023 8:52 AM EDT Narrative HEALTHCARE LAB - 10/07/2023 9:23 AM EDT OPTIMAL INR RANGES FOR PATIENT ON ORAL ANTICOAGULANT THERAPY Prevention of venous thromboembolism ?INR 2.0 to 3.0 In patients with heart disease: Atrial fibrillation ?INR 2.0 to 3.0 Valvular heart disease ? INR 2.0 to 3.0 Tissue heart valves ?INR 2.0 to 3.0 Mechanical prosthetic valves ? INR 2.5 to 3.5 Prevention of recurrent PR ? INR 2.5 to 3.5 us Eloisa Natarajan MD LAB BLOOD ORDERABLES Final Result [facility] [address] [place] [phone] * Nicotine Cotinine Metabolite (10/07/2023 8:09 AM EDT) Pathologist [facility] NICOTINE <5 <5 ng/mL 10/08/2023 1:32 PM EDT HEALTH[facility] Cotinine <5 <5 ng/mL 10/08/2023 1:32 PM EDT [facility] Blood Venous blood specimen / Unknown Venipuncture / Unknown 10/07/2023 8:09 AM EDT 10/07/2023 8:53 AM EDT Narrative HEALTHCARE LAB - 10/08/2023 1:32 PM EDT Testing performed by LC-MS/MS at the [facility]. This test was developed and its performance characteristics determined by [facility]. ??This assay has not been cleared by the FDA. ??The laboratory is regulated under CLIA as qualified to perform high-complexity testing. This test is used for clinical purposes. us Eloisa Natarajan MD LAB BLOOD ORDERABLES Final Result [facility] [address] [place] [address] * (ABNORMAL) Comprehensive Urine Drug Screening, Qualitative Assay, >= 27 Drug Classes (48:09 AM EDT) [facility] Acetaminophen Negative Negative 10/07/2023 3:44 PM EDT [facility] Alprazolam Negative Negative 10/07/2023 3:44 PM EDT [facility] Amantadine Negative Negative 10/07/2023 3:44 PM EDT [facility] Amitriptyline Negative Negative 10/07/2023 3:44 PM EDT [facility] Amphetamine Negative Negative 10/07/2023 3:44 PM EDT [facility] Atenolol Negative Negative 10/07/2023 3:44 PM EDT [facility] Benzoylecgonine Negative Negative 3:44 PM EDT [facility] Bisoprolol Negative Negative 10/07/2023 3:44 PM EDT [facility] Bupropion Negative Negative 10/07/2023 3:44 PM EDT [facility] Butalbital Negative Negative 10/07/2023 3:44 PM EDT [facility] Carbamazepine Negative Negative 10/07/2023 3:44 PM EDT [facility] Carisoprodol Negative Negative 10/07/2023 3:44 PM EDT [facility] Chlorpheniramine Negative Negative 10/07/19 3:44 PM EDT [facility] Citalopram Negative Negative 10/07/2023 3:44 PM EDT [facility] Clindamycin Negative Negative 10/07/2023 3:44 PM EDT [facility] Clonidine Negative Negative 10/07/2023 3:44 PM EDT [facility] Clopidogrel / Ticlopidine Negative Negative 10/07/2023 3:44 PM EDT [facility] Cocaethylene Negative Negative 10/07/2023 3:44 PM EDT [facility] Cocaine Negative Negative 10/07/2023 3:44 PM EDT [facility] Codeine Negative Negative 10/07/2023 3:44 PM EDT [facility] Cyclobenzaprine Negative Negative 3:44 PM EDT [facility] Desvenlafaxine Negative Negative 10/07/2023 3:44 PM EDT [facility] Dextromethorphan Negative Negative 10/07/19 3:44 PM EDT [facility] Diazepam Negative Negative 10/07/2023 3:44 [address] [facility] Diltiazem Negative Negative 10/07/2023 3:[address] [facility] Diphenhydramine Negative Negative 3:44 PM EDT [facility] Doxepine Negative Negative 10/07/2023 3:44 [address] [facility] Doxylamine Negative Negative 10/07/2023 3:44 [address] [facility] EDDP-Methadone metabolite Negative Negative 10/07/2023 3:44 PM [address] [facility] Fentanyl Negative Negative 10/07/2023 3:44 PM [address] [facility] Fluconazole Negative Negative 10/07/2023 3:44 [address] [facility] Fluoxetine Negative Negative 10/07/2023 3:44 [address] [facility] Guaifenesin Negative Negative 10/07/2023 3:44 [address] [facility] Haloperidol Negative Negative 10/07/2023 3:44 [address] [facility] Heroin/6-LAVELLE Negative Negative 10/07/2023 3:44 PM EDT [facility] Hydrocodone Negative Negative 10/07/2023 3:44 PM EDT [facility] Hydroxyzine / Cetirizine metabolite Negative Negative 10/07/2023 3:44 PM EDT [facility] Ibuprofen Negative Negative 10/07/2023 3:44 PM EDT [facility] Imipramine Negative Negative 10/07/2023 3:44 PM EDT [facility] Ketamine Negative Negative 10/07/2023 3:44 PM EDT [facility] Labetolol Negative Negative 10/07/2023 3:44 PM EDT [facility] Lamotrigine Negative Negative 10/07/2023 3:44 PM EDT [facility] Levetiracetam Negative Negative 10/07/2023 3:44 PM EDT [facility] Lidocaine Negative Negative 10/07/2023 3:44 PM EDT [facility] MDA Negative Negative 10/07/2023 3:44 PM EDT [facility] MDMA Negative Negative 10/07/2023 3:44 PM ED[address] [facility] Memantine Negative Negative 10/07/2023 3:44 [address] [facility] Meperidine Negative Negative 10/07/2023 3:[address] [facility] Meprobamate Negative Negative 10/07/2023 3:44 [address] [facility] Metaxalone Negative Negative 10/07/2023 3:[address] [facility] Methamphetamine Negative Negative 3:[address] [facility] Methocarbamol Negative Negative 10/07/2023 3:[address] [facility] Methylecgonine Negative Negative 10/07/2023 3:[address] [facility] Metoclopramide Negative Negative 10/07/2023 3:[address] [facility] Metoprolol Negative Negative 10/07/2023 3:[address] [facility] Metronidazole Negative Negative 10/07/2023 3:44 [address] [facility] Midazolam Negative Negative 10/07/2023 3:[address] [facility] Midazolam Metabolite Negative Negative 10/07/2023 3:44 [address] [facility] Mirtazapine Negative Negative 10/07/2023 3:44 [address] [facility] Misc Test Result Negative Negative 10/07/19 3:44 PM EDT [facility] Naproxen Negative Negative 10/07/2023 3:44 PM EDT [facility] Nefazodone Negative Negative 10/07/2023 3:44 PM EDT [facility] Norfentanyl Negative Negative 10/07/2023 3:44 PM EDT [facility] Nortriptyline Negative Negative 10/07/2023 3:44 PM EDT [facility] Ordanstron Negative Negative 10/07/2023 3:44 [address] [facility] Oxcarbazepine Negative Negative 10/07/2023 3:44 PM EDT [facility] Oxycodone Negative Negative 10/07/2023 3:44 [address] [facility] Paroxethine Negative Negative 10/07/2023 3:44 PM EDT [facility] Phenobarbital Negative Negative 10/07/2023 3:44 PM EDT [facility] Phentermine Negative Negative 10/07/2023 3:44 PM EDT [facility] Phenytoin Negative Negative 10/07/2023 3:44 PM EDT [facility] Primidone Negative Negative 10/07/2023 3:44 PM EDT [facility] Promethazine Negative Negative 10/07/2023 3:44 PM EDT [facility] Propofol Negative Negative 10/07/2023 3:44 PM EDT [facility] Propranolol Negative Negative 10/07/2023 3:[address] [facility] Quetiapine Negative Negative 10/07/2023 3:44 PM EDT [facility] Quinine Negative Negative 10/07/2023 3:[address] [facility] Rantidine Negative Negative 10/07/2023 3:[address] [facility] Sertraline Negative Negative 10/07/2023 3:[address] [facility] Spironolactone Positive(A) Negative 3:[address] [facility] Tizanidine Negative Negative 10/07/2023 3:[address] [facility] Topiramate Negative Negative 10/07/2023 3:[address] [facility] Tramadol Negative Negative 10/07/2023 3:[address] [facility] Trazadone/ Trazadone metabolite Negative Negative 10/07/2023 3:[address] [facility] Trimethoprim Negative Negative 10/07/2023 3:44 PM EDT [facility] Valproic Acid Negative Negative 10/07/2023 3:[address] [facility] Venlafaxine Negative Negative 10/07/2023 3:[address] [facility] Verapamil Negative Negative 10/07/2023 3:44 PM EDT [facility] Zolpidem Negative Negative 10/07/2023 3:[address] [facility] Urine Urine specimen obtained by clean catch procedure / Unknown Non-blood Collection / Unknown 10/07/2023 8:09 AM EDT 10/07/2023 9:35 AM EDT Narrative HEALTHCARE LAB - 10/07/2023 3:44 PM EDT The UDS Assay Screens for at least 27 classes of drugs. The Classes Includes: Amphetamines, Analgesics, Anesthetic, Antiepileptic, Antihistamine, Antivirals, Antidepressants, Antifungal, Antibiotic, Antipsychotics, Antiemetic, Antimalarial, Appetite Suppressant, Barbiturates, Benzodiazepines, Cocaine, Cognitive Enhancing Meds, Cough Suppressant, Dopamine Antagonist, Fentanyl, Hypertensive, Methadones, Muscle Relaxers, Opiates, Psychedelic, Sedative. Drugs in urine are analyzed by gas chromatography-mass spectrometry. This test was developed and its performance characteristics determined by [facility].It has not been cleared or approved by the FDA.The laboratory is regulated under CLIA as qualified to perform high-complexity testing. This test is used for clinical purposes. Testing is performed at the [facility]. us Eloisa Natarajan MD LAB URINE ORDERABLES Final Result [facility] [address] [place] [phone] * (ABNORMAL) Comprehensive metabolic panel (10/07/2023 8:09 AM EDT) Glucose, Plasma 103(H) 74 - 99 mg/dL 10/07/2023 9:24 AM EDT [facility] BUN, Plasma 10 7 - 21 mg/dL 10/07/2023 9:24 AM EDT [facility] Creatinine, Plasma 0.80 0.60 - 1.10 mg/dL 10/07/2023 9:24 AM EDT [facility] BUN/Creatinine Ratio 13 10/07/2023 9:24 AM EDT [facility] Sodium, Plasma 127(L) 136 - 145 mmol/L 10/07/2023 9:24 AM EDT [facility] Potassium, Plasma 3.7 3.7 - 4.8 mmol/L 10/07/2023 9:24 AM EDT [facility] Chloride, Plasma 93(L) 97 - 107 mmol/L 10/07/2023 9:24 AM EDT [facility] CO2, Plasma 21(L) 22 - 29 mmol/L 10/07/2023 9:24 AM EDT [facility] Anion Gap 13 6 - 16 mmol/L 10/07/2023 9:24 AM EDT [facility] Total Calcium, Plasma 8.7(L) 8.9 - 10.2 mg/dL 10/07/2023 9:24 AM EDT [facility] Total Protein 7.1 6.3 - 7.9 g/dL 10/07/2023 9:24 AM EDT [facility] Albumin, Plasma 3.3(L) 3.5 - 5.2 g/dL 10/07/2023 9:24 AM EDT [facility] AST, Plasma 56(H) 10 - 35 U/L 10/07/2023 9:24 AM EDT [facility] ALT, Plasma 55(H) 10 - 35 U/L 10/07/2023 9:24 AM EDT [facility] Alkaline Phosphatase, Plasma 172(H) 35 - 104 U/L 10/07/2023 9:24 AM EDT [facility] Total Bilirubin, Plasma 3.6(H) 0.2 - 1.1 mg/dL 10/07/2023 9:24 AM EDT [facility] eGFRcr 99.9 mL/min/1.7 3m*2 10/07/2023 9:24 AM EDT [facility] Comment:Reported eGFRcr in m L/min/1.73m2 is based the CKD-EPI 2020 equation that does not use a race coefficient. Blood Venous blood specimen / Unknown Venipuncture / Unknown 10/07/2023 8:09 AM EDT 10/07/2023 8:52 AM EDT us Eloisa Natarajan MD LAB BLOOD ORDERABLES Final Result Performing Organization Address City/State/[facility] Co de Phone Number [facility] [address] [place] [phone] * (ABNORMAL) CBC w/o differential (10/07/2023 8:09 AM EDT) WBC Count 6.60 3.70 - 10.30 10*3/uL LAB HEMATOLOGY METHOD 10/07/2023 10:46 AM EDT [facility] RBC Count 2.89(L) 3.90 - 5.20 10*6/uL LAB HEMATOLOGY METHOD 10/07/2023 10:46 AM EDT [facility] HGB 10.6(L) 11.2 - 15.7 g/dL LAB HEMATOLOGY METHOD 10/07/2023 10:46 AM EDT [facility] HCT 31.9(L) 34.0 - 45.0 % LAB HEMATOLOGY METHOD 10/07/2023 10:46 AM EDT [facility] Platelet Count 94(L) 155 - 369 10*3/uL LAB HEMATOLOGY METHOD 10/07/2023 10:46 AM EDT [facility] MCV 110(H) 79 - 98 fL LAB HEMATOLOGY METHOD 10/07/2023 10:46 AM EDT [facility] MCH 36.7(H) 26.0 - 32.0 pg LAB HEMATOLOGY METHOD 10/07/2023 10:46 AM EDT [facility] MCHC 33.2 30.7 - 35.5 g/dL LAB HEMATOLOGY METHOD 10/07/2023 10:46 AM EDT [facility] RDW 14.1 11.5 - 14.5 % LAB HEMATOLOGY METHOD 10/07/2023 10:46 AM EDT [facility] MPV 10.9 8.8 - 12.5 fL LAB HEMATOLOGY METHOD 10/07/2023 10:46 AM EDT [facility] nRBC 0.0 <=0.0 per 100 WBCs LAB HEMATOLOGY METHOD 10/07/2023 10:46 AM EDT [facility] Blood Venous blood specimen / Unknown Venipuncture / Unknown 10/07/2023 8:09 AM EDT 10/07/2023 9:06 AM EDT us Eloisa Natarajan MD LAB BLOOD ORDERABLES Final Result [facility] [address] [place] [address] * Alcohol Urine (10/07/2023 8:09 AM EDT) [facility] Alcohol Urine Negative Negative 10/07/2023 2:55 PM EDT [facility] Urine Urine specimen obtained by clean catch procedure / Unknown Non-blood Collection / Unknown 10/07/2023 8:09 AM EDT 10/07/2023 9:35 AM EDT Narrative [facility] - 10/07/2023 2:55 PM EDT The correlation between urine and serum ethanol concentration is highly variable. Test performed by Gas Chromatography at the [facility]. This test was developed and its performance characteristics determined by [email or web address]. It has not been cleared or approved by the FDA.The laboratory is regulated under CLIA as qualified to perform high-complexity testing. This test is used for clinical purposes only. The correlation between urine and serum ethanol concentration is highly variable. Test performed by Gas Chromatography at the [facility]. This test was developed and its performance characteristics determined by [email or web address]. It has not been cleared or approved by the FDA.The laboratory is regulated under CLIA as qualified to perform high-complexity testing. This test is used for clinical purposes only. Eloisa Natarajan MD LAB URINE ORDERABLES Final Result [facility] [address] [place] [address] documented in this encounter Visit Diagnoses Diagnosis End-stage liver disease (CMS/HCC)- Primary Other sequelae of chronic liver disease documented in this encounter Additional Health Concerns Assessment Noted Time PHQ-9 Depression Total Score: 7 09/22/19 24 2:31 PM EDT A fall risk assessment has been complete d for the patient 08/28/2023 2:06 PM EST A Body Mass Index follow-up plan has been documented for the patient 10/03/2023 10:28 PM EDT documented as of this encounter Care Teams Insurance Billing Clerk Relationship Specialty Start Date End Date Yonatan Graves DO [address] [place] [address] [address] [place] [address] PCP - General 09/24/22 Adryan Bearden PA [address] [place] [phone] Referring Physician Gastroenterology 09/24/22 documented as of this encounter
--- OUTSIDE RECORDS SUMMARY | 2024-05-11 18:31 | XMS_ITS | Encounter Summary ---
Author Organization Healthcare Address [address] [id number] Care Team Providers Care Door To Door Sales Representative Name Role Phone Jodie Gravesew Joseph LLANES Primary Care Provider Adryan Bearden Unavailable Encounter Details Date Type Department Care Team (Late st Contact Info) Description 10/28/2023 [facility]phone [facility] [address] [facility] [address] [place] [id number] Tresa Vieira, RN [id number] [address] [place] [address] Social History Tobacco Use Types Packs/Day Years Used Date Smoking Tobacco: Former Cigarettes Q uit: 05/14/2019 Passive Smoke Exposure: Past Smokeless Tobacco: Never Alcohol Use Standard Drinks/Week Comments Not Currently 0 (1 standard drink = 0.6 oz pure alcohol) Last drink was first week of July 2023 PHQ-2 Answer Date Recorded Patient Health Questionnaire-2 Score 2 10/24/2023 PHQ-9 Answer Date Recorded Patient Health Questionnaire-9 Score 8 10/24/2023 PHQ-2A Answer Date Recorded Patient Health Questionnaire-2 Score 0 05/29/2023 Comments No Sex and Gender Information Value Date Recorded Sex Assigned at Not on file Legal Sex Female 6:24 PM EDT Gender Identity Not on file Sexual Orientation Not on file documented as of this encounter Miscellaneous Notes * Telephone Encounter - Tresa Vieira, RN - 10/28/2023 8:44 AM EDT Rec'd ph call from patient. She adv she is currently following with Transplant Team at . She adv per their request, she needs to end treatment at at this time. She adv they have ordered MRI and will be monitoring it for patient. Will close referral. documented in this encounter Plan of Treatment Not on file documented as of this encounter Visit Diagnoses Not on filedocumented in this encounter Additional Health Concerns Assessment Noted Time PHQ-9 Depression Total Score: 8 10/24/19 24 10:43 AM EDT A fall risk assessment has been complete d for the patient 10/07/2023 9:46 AM EDT A Body Mass Index follow-up plan has been documented for the patient 10/18/2023 1:28 PM EDT documented as of this encounter Care Teams Door To Door Sales Representative Relationship Specialty Start Date End Date Yonatan Graves DO [address] [place] [address] [address] [place] [address] PCP - General 09/24/22 Adryan Bearden PA [address] [place] [address] Referring Physician Gastroenterology 09/24/22 documented as of this encounter
--- OUTSIDE RECORDS SUMMARY | 2024-05-11 18:31 | XMS_ITS | Encounter Summary ---
Author Organization [facility] Address [address] [place] [address] Care Team Providers Care Door Worker Name Role Phone StarYonatan Joseph LLANES Primary Care Provider Adryan Bearden Unavailable Encounter Details Date Type Department Care Team (Late st Contact Info) Description 09/01/[facility]23 [facility] [address] [place] [address] Iqra Hernández RN Social History Tobacco Use Types Packs/Day Years Used Date Smoking Tobacco: Former Cigarettes Q uit: 05/14/2019 Passive Smoke Exposure: Past Smokeless Tobacco: Never Alcohol Use Standard Drinks/Week Comments Yes 3 (1 standard drink = 0.6 oz pur e alcohol) PHQ-2 Answer Date Recorded Patient Health Questionnaire-2 Score 2 09/02/2023 PHQ-9 Answer Date Recorded Patient Health Questionnaire-9 Score 8 09/02/2023 PHQ-2A Answer Date Recorded Patient Health Questionnaire-2 Score 0 05/29/2023 Comments No Sex and Gender Information Value Date Recorded Sex Assigned at Not on file Legal Sex Female 6:24 PM EDT Gender Identity Not on file Sexual Orientation Not on file documented as of this encounter Miscellaneous Notes * Telephone Encounter - Iqra Hernández RN - 09/03/2023 9:08 AM EDT Called pt, she is admitted at [facility]. Provider aware * Telephone Encounter - Iqra Hernández RN - 09/02/2023 1:10 PM EDT Called pt left vm -needs to complete labs. Let us know where she would like to complete -elevate legs per bharat * Telephone Encounter - Iqra Hernández RN - 09/01/2023 8:41 AM EDT -c/o burning in legs as well as swelling that has worsened since last appt. States they are triple the size of her normal leg size, is very uncomfortable. Experiencing abd swelling still. Denies SOA -states she has been compliant with diuretics documented in this encounter Plan of Treatment Not on file documented as of this encounter Visit Diagnoses Not on filedocumented in this encounter Additional Health Concerns Assessment Noted Time PHQ-9 Depression Total Score: 8 08/25/19 24 10:39 AM EST A fall risk assessment has been complete d for the patient 08/28/2023 2:06 PM EST A Body Mass Index follow-up plan has been documented for the patient 09/02/2023 11:53 AM EDT documented as of this encounter Care Teams Door Worker Relationship Specialty Start Date End Date Yonatan Graves DO [address] [place] [address] [address] [place] [address] PCP - General 09/24/22 Adryan Bearden PA [address] [place] [address] Referring Physician Gastroenterology 09/24/22 documented as of this encounter
--- OUTSIDE RECORDS SUMMARY | 2024-05-11 18:31 | XMS_ITS | Encounter Summary ---
Author Organization [facility] Address [address] [place] [address] Care Team Providers Care Napper Tender Name Role Phone Yonatan Graves DO Primary Care Provider Adryan Bearden Unavailable Encounter Details Date Type Department Care Team (Latest Contact Info) Description 11/05/2023 Travel Social History Tobacco Use Types Packs/Day Years Used Date Smoking Tobacco: Former Cigarettes Q uit: 05/14/2019 Passive Smoke Exposure: Past Smokeless Tobacco: Never Alcohol Use Standard Drinks/Week Comments Not Currently 0 (1 standard drink = 0.6 oz pure alcohol) Last drink was first week of July 2023 PHQ-2 Answer Date Recorded Patient Health Questionnaire-2 Score 2 11/05/2023 PHQ-9 Answer Date Recorded Patient Health Questionnaire-9 Score 8 11/05/2023 PHQ-2A Answer Date Recorded Patient Health Questionnaire-2 [...] Noted Time PHQ-9 Depression Total Score: 8 11/05/19 4:10 PM EDT A fall risk assessment has been complete d for the patient 10/07/2023 9:46 AM EDT A Body Mass Index follow-up plan has been documented for the patient 11/05/2023 5:20 PM EDT documented as of this encounter Care Teams Napper Tender Relationship Specialty Start Date End Date Yonatan Graves DO [address] [facility] [address] [place] [address] PCP - General 09/24/22 Adryan Bearden PA [facility] [phone] Referring Physician Gastroenterology 09/24/22 documented as of this encounter
--- OUTSIDE RECORDS SUMMARY | 2024-05-11 18:31 | XMS_ITS | Encounter Summary ---
Author Organization [facility] Address [address] [place] [address] Care Team Providers Care Extension Service Advisor Name Role Phone Yonatan Graves DO Primary Care Provider Adryan Bearden Unavailable Encounter Details Date Type Department Care Team (Latest Contact Info) Description 11/07/2023 Travel Social History Tobacco Use Types Packs/Day Years Used Date Smoking Tobacco: Former Cigarettes Q uit: 05/14/2019 Passive Smoke Exposure: Past Smokeless Tobacco: Never Alcohol Use Standard Drinks/Week Comments Not Currently 0 (1 standard drink = 0.6 oz pure alcohol) Last drink was first week of July 2023 PHQ-2 Answer Date Recorded Patient Health Questionnaire-2 Score 2 11/07/2023 PHQ-9 Answer Date Recorded Patient Health Questionnaire-9 Score 9 11/07/2023 PHQ-2A Answer Date Recorded Patient Health Questionnaire-2 [...] Assessment Noted Time PHQ-9 Depression Total Score: 9 11/07/19 24 8:15 AM EDT A fall risk assessment has been complete d for the patient 10/07/2023 9:46 AM EDT A Body Mass Index follow-up plan has been documented for the patient 11/05/2023 5:20 PM EDT documented as of this encounter Care Teams Extension Service Advisor Relationship Specialty Start Date End Date Yonatan Graves DO [address] [facility] [address] [place] [address] PCP - General 09/24/22 Adryan Bearden PA [facility] [phone] Referring Physician Gastroenterology 09/24/22 documented as of this encounter
--- OUTSIDE RECORDS SUMMARY | 2024-05-11 18:31 | XMS_ITS | Encounter Summary ---
Author Organization [facility] Address [address] [place] [address] Care Team Providers Care Product Development Director Name Role Phone Yonatan Graves DO Primary Care Provider Adryan Bearden Unavailable Encounter Details Date Type Department Care Team (Latest Contact Info) Description 10/02/2023 Travel Social History Tobacco Use Types Packs/Day Years Used Date Smoking Tobacco: Former Cigarettes Q uit: 05/14/2019 Passive Smoke Exposure: Past Smokeless Tobacco: Never Alcohol Use Standard Drinks/Week Comments Yes 3 (1 standard drink = 0.6 oz pur e alcohol) PHQ-2 Answer Date Recorded Patient Health Questionnaire-2 Score 2 10/02/2023 PHQ-9 Answer Date Recorded Patient Health Questionnaire-9 Score 11 10/02/2023 PHQ-2A Answer Date Recorded Patient Health Questionnaire-2 [...] Time PHQ-9 Depression Total Score: 11 024 1:32 PM EDT A fall risk assessment has been complete d for the patient 08/28/2023 2:06 PM EST A Body Mass Index follow-up plan has been documented for the patient 10/03/2023 10:28 PM EDT documented as of this encounter Care Teams Product Development Director Relationship Specialty Start Date End Date Yonatan Graves DO [address] [facility] [address] [place] [address] PCP - General 09/24/22 Adryan Bearden PA [facility] [place] [address] Referring Physician Gastroenterology 09/24/22 documented as of this encounter
--- OUTSIDE RECORDS SUMMARY | 2024-05-11 18:31 | XMS_ITS | Encounter Summary ---
Author Organization [facility] Address [address] [place] [address] Care Team Providers Care Death Clearance Coordinator Name Role Phone Yonatan Graves DO Primary Care Provider Adryan Bearden Unavailable Encounter Details Date Type Department Care Team (Latest Contact Info) Description 09/02/2023 Travel Social History Tobacco Use Types Packs/Day [...] Noted Time PHQ-9 Depression Total Score: 8 09/02/19 24 5:01 PM EDT A fall risk assessment has been complete d for the patient 08/28/2023 2:06 PM EST A Body Mass Index follow-up plan has been documented for the patient 09/02/2023 11:53 AM EDT documented as of this encounter Care Teams Death Clearance Coordinator Relationship Specialty Start Date End Date Yonatan Graves DO [address] [facility] [address] [place] [address] PCP - General 09/24/22 Adryan Bearden PA [facility] [place] [address] Referring Physician Gastroenterology 09/24/22 documented as of this encounter
--- OUTSIDE RECORDS SUMMARY | 2024-05-11 18:31 | XMS_ITS | Encounter Summary ---
Author Organization [facility] Address [address] [place] [address] Care Team Providers Care Kiln Remover Name Role Phone Yonatan Graves DO Primary Care Provider Adryan Bearden Unavailable Encounter Details Date Type Department Care Team (Latest Contact Info) Description 12/23/2023 Travel Social History Tobacco Use Types Packs/Day Years Used Date Smoking Tobacco: Former Cigarettes Q uit: 05/14/2019 Passive Smoke Exposure: Past Smokeless Tobacco: Never Alcohol Use Standard Drinks/Week Comments Not Currently 0 (1 standard drink = 0.6 oz pure alcohol) Last drink was first week of July 2023 PHQ-2 Answer Date Recorded Patient Health Questionnaire-2 Score 2 12/23/2023 PHQ-9 Answer Date Recorded Patient Health Questionnaire-9 Score 9 12/23/2023 PHQ-2A Answer Date Recorded Patient Health Questionnaire-2 [...] Noted Time PHQ-9 Depression Total Score: 9 12/23/19 24 11:22 AM EDT A fall risk assessment has been complete d for the patient 10/07/2023 9:46 AM EDT A Body Mass Index follow-up plan has been documented for the patient 01/02/2024 3:57 PM EDT documented as of this encounter Care Teams Kiln Remover Relationship Specialty Start Date End Date Yonatan Graves DO [address] [facility] [address] [place] [address] PCP - General 09/24/22 Adryan Bearden PA [facility] [phone] Referring Physician Gastroenterology 09/24/22 documented as of this encounter
--- OUTSIDE RECORDS SUMMARY | 2024-05-11 18:31 | XMS_ITS | Encounter Summary ---
Author Organization [facility] Address [address] [id number] Care Team Providers Care Director Of Media Name Role Phone HildamikeroeYonatan Joseph LLANES Primary Care Provider Adryan Bearden Unavailable Reason for Visit * Reason Onset Date Comments Med Refill 09/08/2023 Encounter Details Date Type Department Care Team (Late st Contact Info) Description 09/08/2023 Refill [facility] [address] [place] [address] Farida Ortega D, RN DERMATOLOGY [address] [place] [address] Social History Tobacco Use Types Packs/Day Years [...] encounter Miscellaneous Notes * Telephone Encounter - Annmarie Reilly, PharmD - 09/08/2023 7:35 AM EDT Refill request does not meet protocol. Sending to clinic for review. Additional info: Patient reported taking differently - Per the 08/27 clinic note, pt has increased dose on furosemide. Please review, thank you!. * Telephone Encounter - Arlette Motley, RN - 09/08/2023 6:52 AM EDT Patient requesting refill per [facility]CM documented in this encounter Plan of Treatment [...] of this encounter Care Teams Director Of Media Relationship Specialty Start Date End Date Yonatan Graves DO [address] [place] [address] [place] [address] PCP - General 09/24/22 Adryan Bearden PA [address] [place], [place] [phone] Referring Physician Gastroenterology 09/24/22 documented as of this encounter
--- OUTSIDE RECORDS SUMMARY | 2024-05-11 18:31 | XMS_ITS | Encounter Summary ---
Author Organization [facility] Address [address] [id number] Care Team Providers Care Universal Grinder Tool Name Role Phone Yonatan Graves DO Primary Care Provider Adryan Bearden Unavailable Encounter Details Date Type Department Care Team (Latest Contact Info) Description 09/22/2023 Travel Social History Tobacco Use Types Packs/Day [...] documented as of this encounter Care Teams Universal Grinder Tool Relationship Specialty Start Date End Date Yonatan Graves DO [address] [facility] [address] [place] [address] PCP - General 09/24/22 Adryan Bearden PA [facility] [place] [facility] [place] [address] Referring Physician Gastroenterology 09/24/22 documented as of this encounter
--- OUTSIDE RECORDS SUMMARY | 2024-05-11 18:31 | XMS_ITS | Encounter Summary ---
Author Organization [facility] Address [address] [place] [address] Care Team Providers Care Intake Specialist Name Role Phone Yonatan Graves DO Primary Care Provider Adryan Bearden Unavailable Encounter Details Date Type Department Care Team (Latest Contact Info) Description 08/28/2023 Travel Social History Tobacco Use Types Packs/Day Years Used Date Smoking Tobacco: Former Cigarettes Q uit: 05/14/2019 Passive Smoke Exposure: Past Smokeless Tobacco: Never Alcohol Use Standard Drinks/Week Comments Yes 3 (1 standard drink = 0.6 oz pur e alcohol) PHQ-2 Answer Date Recorded Patient Health Questionnaire-2 Score 2 08/25/2023 PHQ-9 Answer Date Recorded Patient Health Questionnaire-9 Score 8 08/25/2023 PHQ-2A Answer Date Recorded Patient Health Questionnaire-2 [...] Time PHQ-9 Depression Total Score: 8 08/25/19 10:39 AM EST A fall risk assessment has been complete d for the patient 08/28/2023 2:06 PM EST A Body Mass Index follow-up plan has been documented for the patient 09/02/2023 11:53 AM EDT documented as of this encounter Care Teams Intake Specialist Relationship Specialty Start Date End Date Yonatan Graves DO [facility] [facility] [address] [place] [address] PCP - General 09/24/22 Adryan Bearden PA [facility]8 [place] [address] Referring Physician Gastroenterology 09/24/22 documented as of this encounter
--- OUTSIDE RECORDS SUMMARY | 2024-05-11 18:31 | XMS_ITS | Encounter Summary ---
Author Organization [facility] Address [address] [place] [address] Care Team Providers Care Nurse Tech Name Role Phone Yonatan Graves DO Primary Care Provider Adryan Bearden Unavailable Encounter Details Date Type Department Care Team (Late st Contact Info) Description 08/21/[address] [facility] Medicine Specialties [address] [place] [address] Michelle Alexander [place] [address] [place] [address] Social History Tobacco Use Types Packs/Day Years Used Date Smoking Tobacco: Former Cigarettes Q uit: 05/14/2019 Passive Smoke Exposure: Past Smokeless Tobacco: Never Alcohol Use Standard Drinks/Week Comments Yes 3 (1 standard drink = 0.6 oz pur e alcohol) PHQ-2 Answer Date Recorded Patient Health Questionnaire-2 Score 2 08/19/2023 PHQ-9 Answer Date Recorded Patient Health Questionnaire-9 Score 9 08/19/2023 PHQ-2A Answer Date Recorded Patient Health Questionnaire-2 Score 0 05/29/2023 Comments Unknown Sex and Gender Information Value Date Recorded Sex Assigned at Not on file Legal Sex Female 6:24 PM EDT Gender Identity Not on file Sexual Orientation Not on file documented as of this encounter Miscellaneous Notes * Telephone Encounter - Arlette Motley RN - 08/22/2023 9:58 AM EST S/W patient -MRI results have been released, confirmed with patient -I advised her that, at times, there is a 72 hour delay in having test results released in [employer] -Verbalized understanding, no questions, thanked me for calling * Telephone Encounter - Michelle Alexander CNA - 08/21/2023 11:41 AM EST Patient called wondering about getting MRI results from 08/18 sent to her [employer] CB: [phone] documented in this encounter Plan of Treatment Not on file documented as of this encounter Visit Diagnoses Not on filedocumented in this encounter Additional Health Concerns Assessment Noted Time PHQ-9 Depression Total Score: 9 08/19/19 24 9:52 AM EST A fall risk assessment has been complete d for the patient 07/17/2023 9:04 AM EST A Body Mass Index follow-up plan has been documented for the patient 08/25/2023 10:19 PM EST documented as of this encounter Care Teams Nurse Tech Relationship Specialty Start Date End Date Yonatan Graves DO [facility] [facility] [address] [place] [address] PCP - General 09/24/22 Adryan Bearden PA [address] [place] [address] Referring Physician Gastroenterology 09/24/22 documented as of this encounter
--- OUTSIDE RECORDS SUMMARY | 2024-05-11 18:31 | XMS_ITS | Encounter Summary ---
Author Organization [facility] Address [address] [place] [address] Care Team Providers Care Ciso Name Role Phone Yonatan Graves DO Primary Care Provider Adryan Bearden Unavailable Encounter Details Date Type Department Care Team (Latest Contact Info) Description 10/07/2023 Travel Social History Tobacco Use Types Packs/Day Years Used Date Smoking Tobacco: Former Cigarettes Q uit: 05/14/2019 Passive Smoke Exposure: Past Smokeless Tobacco: Never Alcohol Use Standard Drinks/Week Comments Not Currently 0 (1 standard drink = 0.6 oz pure alcohol) Last drink was first week of July 2023 PHQ-2 Answer Date Recorded Patient Health Questionnaire-2 Score 2 10/08/2023 PHQ-9 Answer Date Recorded Patient Health Questionnaire-9 Score 8 10/08/2023 PHQ-2A Answer Date Recorded Patient Health Questionnaire-2 [...] plan has been documented for the patient 10/07/2023 9:07 PM EDT documented as of this encounter Care Teams Ciso Relationship Specialty Start Date End Date Yonatan Graves DO [address] [facility] [address] [place] [address] PCP - General 09/24/22 Adryan Bearden PA [facility] [place] [phone] Referring Physician Gastroenterology 09/24/22 documented as of this encounter
--- OUTSIDE RECORDS SUMMARY | 2024-05-11 18:31 | XMS_ITS | Encounter Summary ---
Author Organization [facility] Address [address] [place] [address] Care Team Providers Care Wood Heel Flap Inserter Name Role Phone Yonatan Graves DO Primary Care Provider Adryan Bearden Unavailable Encounter Details Date Type Department Care Team (Latest Contact Info) Description 11/14/2023 Travel Social History Tobacco Use Types Packs/Day Years Used Date Smoking Tobacco: Former Cigarettes Q uit: 05/14/2019 Passive Smoke Exposure: Past Smokeless Tobacco: Never Alcohol Use Standard Drinks/Week Comments Not Currently 0 (1 standard drink = 0.6 oz pure alcohol) Last drink was first week of July 2023 PHQ-2 Answer Date Recorded Patient Health Questionnaire-2 Score 2 11/14/2023 PHQ-9 Answer Date Recorded Patient Health Questionnaire-9 Score 8 11/14/2023 PHQ-2A Answer Date Recorded Patient Health Questionnaire-2 [...] Noted Time PHQ-9 Depression Total Score: 8 11/14/19 10:03 AM EDT A fall risk assessment has been complete d for the patient 10/07/2023 9:46 AM EDT A Body Mass Index follow-up plan has been documented for the patient 11/05/2023 5:20 PM EDT documented as of this encounter Care Teams Wood Heel Flap Inserter Relationship Specialty Start Date End Date Yonatan Graves DO [address] [facility] [address] [place] [address] PCP - General 09/24/22 Adryan Bearden PA [facility] [place] [phone] Referring Physician Gastroenterology 09/24/22 documented as of this encounter
--- OUTSIDE RECORDS SUMMARY | 2024-05-11 18:31 | XMS_ITS | Encounter Summary ---
Author Organization [facility] Address [address] [place] [address] Care Team Providers Care Visual Educator Name Role Phone Yonatan Graves DO Primary Care Provider Adryan Bearden Unavailable Reason for Referral * Transplant (Routine) - Authorized Specialty Diagnoses / Procedures Referred By Roselyn t Referred To Contact Transplant Diagnoses End-stage liver disease (CMS/HCC) Farida Ortega APRN [address] [address] Phone: tel: fax: Referral ID Status Reason Start Date Expiration Date Visits Requested Visits Authorized [id number] Authorized Specialty Services Required 08/28/2023 02/26/[phone] Scheduling Instructions Pls requesting referral to [facility] liver transplant . * Imaging (Routine) - Pending Review Specialty Diagnoses / Procedures Referred By Contac t Referred To Contact Gastroenterology Diagnoses End-stage liver disease (CMS/HCC) Procedures EGD Farida Ortega APRN [address] [address] Phone: tel: fax: Referral ID Status Reason Start Date Expiration Date Visits Requested Visits Authorized [id number] Pending Review Specialty Services Required 08/28/2023 02/26/2025 1 1 Reason for Visit * Reason Comments Cirrhosis Encounter Details Date Type Department Care Team (Late st Contact Info) Description 08/28/2023 2:00 PM EST Office Visit [facility] Medicine Specialties [address] [place] [address] Farida Ortega, STRATEGIC SOURCING CONSULTANT [address] [place] [address] End-stage liver disease (CMS/HCC) (Primary Dx); 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); Alcohol use disorder; HE (hepatic encephalopathy) (CMS/HCC); Liver lesion Social History Tobacco Use Types Packs/Day Years Used Date Smoking Tobacco: Former Cigarettes Q uit: 05/14/2019 Passive Smoke Exposure: Past Smokeless Tobacco: Never Tobacco Cessation:Counseling Given: Not Answered Alcohol Use Standard Drinks/Week Comments Yes 3 [...] - Inhaled Oxygen Concentration - - Weight 68 kg (150 lb) 08/28/2023 2:01 PM EST Height 165.1 cm (5' 5 ) 08/28/2023 2:01 PM EST Body Mass Index 24.96 08/28/2023 2:01 PM EST documented in this encounter Miscellaneous Notes * Progress Notes - Farida Ortega APRN - 08/28/2023 2:00 PM EST Subjective Patient ID: Mindy Wade is a 33 y.o. female. Dear Adryan Bearden PA-C HPI : Mindy Wade is a 33yo female with history of cirrhosis seen in [facility] follow up for cirrhosis of liver. Etiology Alcohol, hx of hepatitis C. . Pt has history of chronic HCV, diagnosed many years ago, was treated with harvoni in 2018 and achieved SVR per outside notes. 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 She was last seen on 04/2023. She continued to follow Dr. Guajardo for alcohol use disorder. Last alcohol 1 month ago. She said she underwent Detox at [facility]. She was presented to ED this morning with c/o increase abdomen swelling, SOB and increase edema. She got discharged from the ED. Reports confusion, edward forgetting. She is furosemide 40 mg and spironolactone 100 mg . She said paracentesis was not performed as it was close to bowel. She said she is drinking lots of Gatorade. She is requesting referral to [facility] ( fax # [phone]). Liver history copied from previous labs 05/12/2023. She was initially evaluated in liver Transplant clinic, transplant was deferred as her PeTH stay positive. Outside records AST>ALT, bilirubin ~4, ALP 141, elevated MCV IgG 2545, ceruloplasmin 22 HFE negative , A1AT 140 LKM 1.6, AMA <20, ASMA 49 PMH: interstitial cystitis and urethral stenosis s/p cystoscopy, left hydronephrosis, HCV, DVT/PE, cirrhosis. FH: father with cirrhosis s/p OLT. PSH: appendectomy, renal stents ( removed) SH: history of drug use (last time was cocaine in 2017), active alcohol use 4-5 drinks a week. Ex-smoker quit 04/2022. Accompanied by her today. She is off work for now. Review of Systems Constitutional: Positive for fatigue. Negative for fever. Gastrointestinal: Positive for abdominal pain, diarrhea and nausea. Negative for constipation and vomiting. Genitourinary: Negative for dysuria, frequency and hematuria. Musculoskeletal: Positive for arthralgias and myalgias. Neurological: Positive for weakness. Negative for headaches. 14 point ROS reviewed and negative except as in HPI Objective Visit Vitals Ht 1.651 m (5' 5 ) Wt 68 kg (150 lb) BMI 24.96 kg/m?? OB Status Other Smoking Status Former BSA 1.77 m?? Physical Exam Constitutional: General: She is not in acute distress. Appearance: Normal appearance. She is not toxic-appearing. Eyes: General: Scleral icterus present. Musculoskeletal: Right lower leg: No edema. Left lower leg: No edema. Skin: Coloration: Skin is jaundiced. Neurological: Mental Status: She is alert. Psychiatric: Mood and Affect: Mood normal. Behavior: Behavior normal. Assessment/Plan Mindy was seen today for cirrhosis. Diagnoses and all orders for this visit: End-stage liver disease (CMS/HCC) (Primary) - MR Abdomen w and wo IV Contrast; Future - Alpha Fetoprotein, Serum; Future - Comprehensive Metabolic Panel, Plasma; Future - EGD; Future - Ambulatory referral to Solid Organ Transplant Team; Future 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) Alcohol use disorder HE (hepatic encephalopathy) (CMS/HCC) Liver lesion MELD 3.0: 20 at 08/28/2023 11:39 AM MELD-Na: 18 at 08/28/2023 11:39 AM Calculated from: Serum Creatinine: 0.69 mg/dL (Using min of 1 mg/dL) at 08/28/2023 11:39 AM Serum Sodium: 138 mmol/L (Using max of 137 mmol/L) at 08/28/2023 11:39 AM Total Bilirubin: 4.0 mg/dL at 08/28/2023 11:39 AM Serum Albumin: 2.8 g/dL at 08/28/2023 11:39 AM INR(ratio): 1.8 at 08/28/2023 11:39 AM Age at listing (hypothetical): 33 years Sex: Female at 08/28/2023 11:39 AM 33 year-old white female with alcohol related liver disease, presumably decompensated with ascites here for follow up. Decompensated cirrhosis secondary to HCV and alcohol use History of HCV, treated in 2018 Outside labs 04/2023 : AST 77, ALT 42, Alk phoa 144, T bili 4.7, Scr 0.8, Na 138.hGB11.9, pLTS 72, inr 1.7, meld na 18. I counseled the patient and family about cirrhosis, natural history, prognosis, potential complications of cirrhosis and management of complications of cirrhosis, indications/contraindications for liver transplant, benefits/risks of transplant including process of transplant evaluation. We had an extensive discussion on the importance of abstinence from any alcohol use and there is nosafe amount of alcohol. Avoid NSAIds, can use tylenol up to 2000mg/day as needed. Transplant deferred due to active alcohol use. She was seen in liver transplant at . Advise 6-12 month sobriety. Pt requesting referral to [facility]. Will send referral. - advise to start multivitamin. Labs reviewed from this morning ED visit. MELD 20. # Abnormal LFTs with AST>ALT, elevated MCV, most likely secondary to active alcohol use Had positive ASMA and IgG from outside. Repeat iGG and ASMA IgG <1:20, IGG 2118. AIH process unlikely in the setting of active alcohol use as repeat ASMA negative. 10/2022 Hep C RNA not detected, hep B serology negative , HIV negative # Alcohol Use disorder. Following Dr. Guajadro. Encouraged to follow with Dr. Guajardo. Recently completed Detox at [facility]. Reports ETOH was 1 months ago. T bili 4. Ascites. Never LVP, but did report abdominal swelling before starting diuretics. Prior imaging showed ascites. On Lasix 40mg daily & Aldactone 100mg daily. C/o increase abdomen distention. LVP attempted in ED however no safe pocket to drain. Increase lasix 60, spirnoalctone 150 mg. Repeat CMP in 1 week. Enforced 2 gram sodium diet. Esophageal varices surveillance: No prior GIB. EGD 10/2022: no EV or GV. Mild to moderate PHG Educated about signs and symptoms of variceal bleed, advised to report to ER should they occur Due for repeat EGD in 10/2023. Liver lesion HCC surveillance: CTAP w/o 09/12: cirrhosis and large ascites RUQ US 10/13: no mention of liver lesions AFP is 16.2 10/2022 . Repeat 9.5 on 04/24/2023 , repeat ordered. MR abdomen 12/27/2022 : reviewed Most inferior lesion measures approximately 1 cm and demonstrates capsule appearance, without evidence of hyperenhancement or washout; LI-RADS 3. Observation 2: More superior lesion measures approximately 6 mm and demonstrates no hyperenhancement or washout; LI-RADS 3. Repeat MRI 03/2023 : reviewed Stable 2 Lirads 3 lesion, Gallbladder is notable for multiple subcentimeter stones layering in the dependent portion near the neck. I discussed with Dr. Salcido ( radiologist ) via secure chat . Per him There is no evidence of biliary obstruction. No choledocholithiasis. MRI on 07/2023 : reviewed , No suspicious LIRADS 4 or 5 lesions. *The previously described 10-12 mm LIRADS 3 observation in segment III is much less conspicuous on the current examination, only subtly visualized on delayed coronal postcontrast 18:40 and arterial phase series 15 image 48. This is most likely a benign distinctive regenerative nodule, still technically LR-3 and can be reassessed on the next follow-up. Repeat MR abdomen in 3 months. # Anxiety : Hydroxyzine 10 mg at night. # Nausea/Vomiting : Zofran as needed. Health maintenance: Immune to hep A, needs Hepatitis B - declined. HCV PCR not detected. Follow up in about 3 months (around 11/28/2023). I spent a total of 31 minutes on the day of the visit. Patient Verification Patient identity has been confirmed using name and date of ? Yes Authorizations and Agreements/Telemedicine Consent sent and consent confirmed? Yes Patient Location: Patient's Home Patient confirms they are physically located in [place]? Yes If the patient is not physically located in [place], the provider has confirmed with [employer] thatthe provider is authorized to provide services in patient's stated location? N/A Provider Location: Provider's Home Audio and video or audio only? Audio and video Labs in months. . TH 2-3 months. documented in this encounter Plan of Treatment Scheduled Orders Name Type Priority Associated Diagnoses Orde r Schedule Alpha Fetoprotein, Serum Lab Routine End-stage liver disease (CMS/HCC) Expected: 08/28/2023 (Approximate), Expires: 02/27/2025 Comprehensive Metabolic Panel, Plasma Lab Routine End-stage liver disease (CMS/HCC) Expected: 08/28/2023 (Approximate), Expires: 02/27/2025 EGD Endoscopy Routine End-stage liver disease (CMS/HCC) Expected: 08/28/2023 (Approximate), Expires: 08/27/2024 Scheduled Referrals Name Type Priority Associated Diagnoses Order Schedule Ambulatory referral to Solid Organ Transplant Team Outpatient Referral Routine End-stage liver disease (CMS/HCC) 1 Occurrences starting 08/28/2023 until 02/27/2025 documented as of this encounter Visit Diagnoses Diagnosis End-stage liver disease (CMS/HCC)- Primary Other sequelae of chronic liver disease 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) Alcohol use disorder HE (hepatic encephalopathy) (CMS/HCC) Hepatic encephalopathy Liver lesion Other specified disorders of liver documented in this encounter Additional Health Concerns Assessment Noted Time PHQ-9 Depression Total Score: 8 08/25/19 10:39 AM EST A fall risk assessment has been complete d for the patient 08/28/2023 2:06 PM EST A Body Mass Index follow-up plan has been documented for the patient 09/02/2023 11:53 AM EDT documented as of this encounter Care Teams Visual Educator Relationship Specialty Start Date End Date Yonatan Graves DO [address] [place] [address] [address] [place] [address] PCP - General 09/24/22 Adryan Bearden PA [address] [place] [address] Referring Physician Gastroenterology 09/24/22 documented as of this encounter
--- OUTSIDE RECORDS SUMMARY | 2024-05-11 18:31 | XMS_ITS | Encounter Summary ---
Author Organization [facility] Address [address] [place] [address] Care Team Providers Care Department Of Mathematics Chair Name Role Phone Yonatan Graves DO Primary Care Provider Adryan Bearden Unavailable Encounter Details Date Type Department Care Team (Latest Contact Info) Description 08/21/2023 Travel Social History Tobacco Use Types Packs/Day [...] Time PHQ-9 Depression Total Score: 9 08/19/19 9:52 AM EST A fall risk assessment has been complete d for the patient 07/17/2023 9:04 AM EST A Body Mass Index follow-up plan has been documented for the patient 08/25/2023 10:19 PM EST documented as of this encounter Care Teams Department Of Mathematics Chair Relationship Specialty Start Date End Date Yonatan Graves DO [address] [facility] [address] [place] [address] PCP - General 09/24/22 Adryan Bearden PA [facility] [place] [address] Referring Physician Gastroenterology 09/24/22 documented as of this encounter
--- OUTSIDE RECORDS SUMMARY | 2024-05-11 18:31 | XMS_ITS | Encounter Summary ---
Author Organization [facility] Address [address] [place] [address] Care Team Providers Care P D Driver Name Role Phone Yonatan Graves DO Primary Care Provider Adryan Bearden Unavailable Encounter Details Date Type Department Care Team (Latest Contact Info) Description 10/03/2023 Travel Social History Tobacco Use Types Packs/Day [...] documented as of this encounter Care Teams P D Driver Relationship Specialty Start Date End Date Yonatan Graves DO [address] [facility] [address] [place] [address] PCP - General 09/24/22 Adryan Bearden PA [facility] [place] [address] Referring Physician Gastroenterology 09/24/22 documented as of this encounter
--- OUTSIDE RECORDS SUMMARY | 2024-05-11 18:31 | XMS_ITS | Encounter Summary ---
Author Organization [facility] Address [address] [place] [address] Care Team Providers Care [employer] Molder Name Role Phone Jodie Gravesew Joseph LLANES Primary Care Provider Adryan Bearden Unavailable Reason for Visit * Reason Comments Pre-Liver Txp Follow-up * Consultation (Routine) - Closed Specialty Diagnoses / Procedures Referred By Contphyllis t Referred To Contact Transplant Diagnoses End-stage liver disease (CMS/HCC) Eloisa Natarajan MD [address] [facility] [address] [place] [address] Phone: tel: fax: Referral ID Status Reason Start Date Expiration Date V isits Requested Visits Authorized [id number] Closed Specialty Services Required 09/25/2023 03/26/2025 1 1 Encounter Details Date Type Department Care Team (Late st Contact Info) Description 10/07/2023 10:00 AM EDT Office Visit [facility] [address] [facility] [address] [place] [address] Eloisa Natarajan MD [address] [facility] [address] [place] [address] 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) (Primary Dx); End-stage liver disease (CMS/HCC); Hyponatremia; Encounter for pre-transplant evaluation for liver transplant; Alcohol use disorder, severe, in early remission (CMS/HCC) Social History Tobacco Use Types Packs/Day Years [...] Mass Index 24.03 10/07/2023 9:43 AM EDT documented in this encounter Miscellaneous Notes * Addendum Note - Eloisa Natarajan MD - 10/07/2023 10:00 AM EDTAddended by: ELOISA NATARAJAN on: 10/07/2023 09:12 PM Modules accepted: Level of Service * Progress Notes - James Ordonez MD - 10/07/2023 10:00 AM EDT Initial consultation Referring provider Kierra Guajardo MD Reason for the consultation Decompensated Alcohol-related/HCV cirrhosis HPI Mindy Wade is a 33yo female with history of cirrhosis for initial consultation for for cirrhosis of liver. Etiology Alcohol, hx of hepatitis C. The patient was seen in our transplant clinic before and was discharged in December due to continued drinking alcohol. The patient has been following up with Dr. Guajardo. She is very determined and she did not have any alcohol drink since First week of July 2023. She has been following up closely with Dr. Guajardo and attended all her visits. Since she was discharged from our transplant clinic, she has been following with Miss Iqbal Shannon in Hepatology clinic for management of ascites. Last time was seen by Miss Lyonskhrel was in August 2023, diuretics dose was increased to Lasix 60 mg daily and Spironolactone dose increased to 150 mg daily. The patient continued to have abdominal pain and distension, she presented to ED. Multiple attempts for paracentesis using LP needle. A diagnostic paracentesis was achieved and fluid was negative for SBP. The dose of diuretics was increased to Lasix 60 mg BID and Spironolactone dose increased to150 mg BID. The patient was seen at [facility] transplant center and was told she needs 6 months sobriety Pt has history of chronic HCV, diagnosed many years ago, was treated with harvoni in 2018 and achieved SVR per outside notes. 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 Prior labs: AST>ALT, bilirubin ~4, ALP 141, elevated MCV [...] today. She is off work for now. Social History Tobacco Use Smoking status: Former Packs/day: 0.00 Years: 2.00 Additional pack years: 0.00 Total pack years: 0.00 Types: Cigarettes Quit date: 05/14/2021 Years since quittin.4 Passive exposure: Past Smokeless tobacco: Never Vaping Use Vaping Use: Never used Substance Use Topics Alcohol use: Not Currently Comment: Last drink was first week of July 2023 Drug use: Not Currently Types: Fentanyl, Oxycodone Comment: Drug use: No drug use Past 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: Diagnosis Date Anxiety Asthma Cirrhosis (CMS/HCC) 10/13 Conversions - Other History of Infectious viral hepatitis 2016 Liver disease 10/13 Personal history of urinary calculi History of renal calculi Seizures (CMS/HCC) Past Surgical History: Procedure Laterality Date APPENDECTOMY 2013 DILATION AND CURETTAGE OF UTERUS KIDNEY SURGERY stent placement TONSILLECTOMY 2009 Family History Problem Relation Name Age of Onset Epilepsy Sister Barby caal Autoimmune disease Sister Barby caal Diabetes Maternal Grandfather Aaron Hernández Arthritis Maternal Grandfather Aaron Hernández Arthritis Maternal Grandmother Gina hernández Review of Systems 14-point review of systems was negative, except as per HPI. Objective Visit Vitals BP 90/57 Pulse (!) 111 Temp 36.6 ??C (97.9 ??F) Ht 1.651 m (5' 5 ) Wt 65.5 kg (144 lb 6.4 oz) SpO2 99% BMI 24.03 kg/m?? Physical Exam Constitutional: Appearance: Normal appearance. Well-developed. Not in acute distress HENT: Head: Normocephalic and atraumatic. Mouth: Mucous membranes are moist. Pharynx: Oropharynx is clear. Eyes: General: No scleral icterus. Conjunctiva/sclera: Conjunctivae normal. Cardiovascular: Rate and Rhythm: Normal rate and regular rhythm. Pulmonary: Effort: Pulmonary effort is normal. Abdominal: General: There is distension. Palpations: Abdomen is soft. Tenderness: There is no abdominal tenderness. There is no guarding. Hernia: No hernia is present. Moderate nontense ascites Musculoskeletal: Right lower leg: No edema. Left lower leg: No edema. Skin: General: Skin is warm. Coloration: Skin is not jaundiced or pale. No spider telangiectasias or palmar erythema Neurological: General: No focal deficit present. Mental Status: Alert and oriented to person, place, and time. Comments: No asterixis Psychiatric: Mood and Affect: Mood normal. Behavior: Behavior normal. Judgment: Judgment normal. Current Outpatient Medications: furosemide (Lasix) 20 MG tablet, Take 1 tablet (20 mg) by mouth 1 (one) time each day., Disp: 30 tablet, Rfl: 2 gabapentin (Neurontin) 600 MG tablet, Take 1 tablet (600 mg) by mouth 3 (three) times a day for 14 days., Disp: 42 tablet, Rfl: 0 hydrOXYzine HCl (Atarax) 10 MG tablet, TAKE 1 TABLET(10 MG) BY MOUTH AT NIGHT NEEDED FOR ANXIETY, Disp: 30 tablet, Rfl: 2 Multiple Vitamin (multivitamin) tablet, Take 1 tablet by mouth 1 (one) time each day., Disp: , Rfl: ondansetron (Zofran) 8 MG tablet, Take 1 tablet (8 mg) by mouth every 12 (twelve) hours if needed for nausea or vomiting., Disp: , Rfl: spironolactone (Aldactone) 50 MG tablet, Take 2 tablets (100 mg) by mouth 1 (one) time each day., Disp: 60 each, Rfl: 2 methylPREDNISolone (Medrol Dospak) 4 MG tablets, Take 1 tablet (4 mg) by mouth. follow package directions (Patient not taking: Reported on 08/28/2023), Disp: , Rfl: mirtazapine (Remeron) 7.5 MG tablet, Take 1 tablet (7.5 mg) by mouth every night. (Patient not taking: Reported on 10/07/2023), Disp: 30 tablet, Rfl: 0 naloxone (Kloxxado) 8 mg/0.1 mL nasal spray, 1. Give 1 spray in nostril for no/slow breathing or cannot wake after opioid use 2. Call 911 3. Repeat in other nostril if symptoms continue (Patient not taking: Reported on 10/07/2023), Disp: 1 each, Rfl: 0 propranolol (Inderal) 10 MG tablet, Take 1-2 tablets as needed for anxiety, Disp: 15 tablet, Rfl: 0 Laboratory values CBC: WBC Count Date/Time Value Ref Range Status 10/07/2023 08:09 AM 6.60 3.70 - 10.30 10*3/uL Final 08/28/2023 11:39 AM 7.26 3.70 - 10.30 10*3/uL Final 08/15/2023 12:34 PM 3.66 (L) 3.70 - 10.30 10*3/uL Final HGB Date/Time Value Ref Range Status 10/07/2023 08:09 AM 10.6 (L) 11.2 - 15.7 g/dL Final 08/28/2023 11:39 AM 11.7 11.2 - 15.7 g/dL Final 08/15/2023 12:34 PM 11.3 11.2 - 15.7 g/dL Final HCT Date/Time Value Ref Range Status 10/07/2023 08:09 AM 31.9 (L) 34.0 - 45.0 % Final 08/28/2023 11:39 AM 34.3 34.0 - 45.0 % Final 08/15/2023 12:34 PM 34.6 34.0 - 45.0 % Final Platelet Count Date/Time Value Ref Range Status 10/07/2023 08:09 AM 94 (L) 155 - 369 10*3/uL Final 08/28/2023 11:39 AM 110 (L) 155 - 369 10*3/uL Final 08/15/2023 12:34 PM 88 (L) 155 - 369 10*3/uL Final CMP: Sodium, Plasma Date/Time Value Ref Range Status 10/07/2023 08:09 AM 127 (L) 136 - 145 mmol/L Final 08/28/2023 11:39 AM 138 136 - 145 mmol/L Final 08/15/2023 12:34 PM 136 136 - 145 mmol/L Final Potassium, Plasma Date/Time Value Ref Range Status 10/07/2023 08:09 AM 3.7 3.7 - 4.8 mmol/L Final 08/28/2023 11:39 AM 3.6 (L) 3.7 - 4.8 mmol/L Final 08/15/2023 12:34 PM 3.6 (L) 3.7 - 4.8 mmol/L Final Chloride, Plasma Date/Time Value Ref Range Status 10/07/2023 08:09 AM 93 (L) 97 - 107 mmol/L Final 08/28/2023 11:39 AM 107 97 - 107 mmol/L Final 08/15/2023 12:34 PM 102 97 - 107 mmol/L Final CO2, Plasma Date/Time Value Ref Range Status 10/07/2023 08:09 AM 21 (L) 22 - 29 mmol/L Final 08/28/2023 11:39 AM 23 22 - 29 mmol/L Final 08/15/2023 12:34 PM 24 22 - 29 mmol/L Final BUN, Plasma Date/Time Value Ref Range Status 10/07/2023 08:09 AM 10 7 - 21 mg/dL Final 08/28/2023 11:39 AM 5 (L) 7 - 21 mg/dL Final 08/15/2023 12:34 PM 8 7 - 21 mg/dL Final Creatinine, Plasma Date/Time Value Ref Range Status 10/07/2023 08:09 AM 0.80 0.60 - 1.10 mg/dL Final 08/28/2023 11:39 AM 0.69 0.60 - 1.10 mg/dL Final 08/15/2023 12:34 PM 0.71 0.60 - 1.10 mg/dL Final Total Calcium, Plasma Date/Time Value Ref Range Status 10/07/2023 08:09 AM 8.7 (L) 8.9 - 10.2 mg/dL Final 08/28/2023 11:39 AM 8.3 (L) 8.9 - 10.2 mg/dL Final 08/15/2023 12:34 PM 8.9 8.9 - 10.2 mg/dL Final Total Bilirubin, Plasma Date/Time Value Ref Range Status 10/07/2023 08:09 AM 3.6 (H) 0.2 - 1.1 mg/dL Final 08/28/2023 11:39 AM 4.0 (H) 0.2 - 1.1 mg/dL Final 08/15/2023 12:34 PM 6.5 (H) 0.2 - 1.1 mg/dL Final Alkaline Phosphatase, Plasma Date/Time Value Ref Range Status 10/07/2023 08:09 AM 172 (H) 35 - 104 U/L Final 08/28/2023 11:39 AM 129 (H) 35 - 104 U/L Final 08/15/2023 12:34 PM 113 (H) 35 - 104 U/L Final ALT, Plasma Date/Time Value Ref Range Status 10/07/2023 08:09 AM 55 (H) 10 - 35 U/L Final 08/28/2023 11:39 AM 39 (H) 10 - 35 U/L Final 08/15/2023 12:34 PM 49 (H) 10 - 35 U/L Final AST, Plasma Date/Time Value Ref Range Status 10/07/2023 08:09 AM 56 (H) 10 - 35 U/L Final 08/28/2023 11:39 AM 61 (H) 10 - 35 U/L Final 08/15/2023 12:34 PM 59 (H) 10 - 35 U/L Final Glucose, Plasma Date/Time Value Ref Range Status 10/07/2023 08:09 AM 103 (H) 74 - 99 mg/dL Final 08/28/2023 11:39 AM 101 (H) 74 - 99 mg/dL Final 08/15/2023 12:34 PM 116 (H) 74 - 99 mg/dL Final Assessment and Plan Problem List Items Addressed This Visit End-stage liver disease (CMS/HCC) 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) - Primary Relevant Orders Comprehensive metabolic panel Other Visit Diagnoses Hyponatremia Relevant Orders Comprehensive metabolic panel 33 y.o. female patient with alcohol use / HCV cirrhosis decompensated with Ascites here for initialconsultation for OLT MELD 3.0: 21 at 10/07/2023 8:09 AM MELD-Na: 23 at 10/07/2023 8:09 AM Calculated from: Serum Creatinine: 0.80 mg/dL (Using min of 1 mg/dL) at 10/07/2023 8:09 AM Serum Sodium: 127 mmol/L at 10/07/2023 8:09 AM Total Bilirubin: 3.6 mg/dL at 10/07/2023 8:09 AM Serum Albumin: 3.3 g/dL at 10/07/2023 8:09 AM INR(ratio): 1.3 at 10/07/2023 8:09 AM Age at listing (hypothetical): 33 years Sex: Female at 10/07/2023 8:09 AM Decompensated alcohol-related/HCV cirrhosis Alcohol use disorder, in early remission - Cause: Alcohol use and HCV (treated) - Decompensated with Ascites - The patient has been following up with Dr. Guajardo. She is very determined and she did not have any alcohol drink since First week of July 2023. She has been following up closely with Dr. Guajardo and attended all her visits - Her MELD 3.0 is 21 today. Overall her bilirubin is improving since the patient stopped alcohol. MELD continues to be elevated because of hyponatremia (management of hyponatremia as below) - Will hold off transplant evaluation at this time given improvement in Bilirubin. It has been 2 months since sobriety from alcohol. Per Dr. Guajardo- patient has been making good progress with her efforts with maintaining alcohol sobriety and has improved insight into effort needed for recovery - Patient will RTC in 3-4 weeks, if MELD continues to be high, will start standard evaluation - I counseled the patient about cirrhosis, natural history, prognosis, potential complications of cirrhosis and management of complications of cirrhosis, indications/contraindications for liver transplant, benefits/risks of transplant including process of transplant evaluation. - We had an extensive discussion on the importance of abstinence from any alcohol use and there is no safe amount of alcohol. - Avoid NSAIds, can use tylenol up to 2000mg/day as needed. - The patient was seen at for transplant consideration and was informed she needs a 6 month sobriety before listing HE - No prior HE - Patient was advised to titrate Lactulose dose to achieve 2-3 bowel movements per day - Will continue to monitor EV - No prior GIB. - EGD 10/2022: no EV or GV. Mild to moderate PHG - Educated about signs and symptoms of variceal bleed, advised to report to ER should they occur - Not on NSBB due to borderline BP - Due for repeat EGD in 10/2023. Ascites Borderline BP Hyponatremia - Never LVP, but did report abdominal swelling before starting diuretics. Prior imaging showed ascites. - On lasix 60mg BID, spirnoalctone 150 mg BID. Which was increased within the last month - BP readings at home were borderline low - Na today is 127, baseline Na is 134-138. Cr is normal Plan Given hyponatremia and low BP, will reduce the dose of diuretics to 80 mg Lasix and Spironolactone to 200 mg daily. Asked the patient to take the diuretics in 2 divided doses and monitor her BP. If BP continues to be low, will start Midodrine Repeat CMP in a week to monitor Na level Enforced 2 gram sodium HCC screening Liver lesion HCC surveillance: CTAP w/o 09/12: [...] the next follow-up. Repeat MR abdomen in October 2023 Counseling: Nutritional: - Patient was advised to increase protein in diet to 1.2-1.5 gm/kg/day and to exercise to increase muscle mass - Patient was counseled on a low sodium diet to less than 2000 mg per day Pain Medicine: - Avoid NSAIDs, tylenol max of 2000 mg per day Health maintenance - Immune to hep A, needs Hepatitis B, please offer next visit RTC in 3-4 weeks Electronically Signed by: James Ordonez MD - 10/07/2023 - 9:53 AM Cosigned by Eloisa Natarajan MD at 10/07/2023 9:12 PM EDT Associated attestation - Eloisa Natarajan MD - 10/07/2023 9:12 PM EDT I saw and evaluated the patient with the fellow. I discussed the case with the fellow and agree with the findings and plan as documented. I have discussed with Dr. Guajardo whom she has been seeing very regularly and dr. Guajardo assessed that patient has been making good progress with her efforts with maintaining alcohol sobriety and very determined and has improved insight into effort needed for recovery. Off acamprosate. On gabapentin tid for AUD. Also seeing her therapist/AUTOMATIC OVEN OPERATOR regularly, reviewed AUTOMATIC OVEN OPERATOR's note and Dr. Guajardo's notes documented in this encounter Plan of Treatment Scheduled Orders Name Type Priority Associated Diagnoses Orde r Schedule Comprehensive metabolic panel Lab Routine 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) Hyponatremia 12 Occurrences starting 10/07/2023 until 04/07/2025 documented as of this encounter Visit Diagnoses Diagnosis 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)- Primary End-stage liver disease (CMS/HCC) Other sequelae of chronic liver disease Hyponatremia Hyposmolality and/or hyponatremia Encounter for pre-transplant evaluation for liver transplant Alcohol use disorder, severe, in early remission (CMS/HCC) documented in this encounter Additional Health Concerns Assessment Noted Time PHQ-9 Depression Total Score: 11 024 1:32 PM EDT A fall risk assessment has been complete d for the patient 10/07/2023 9:46 AM EDT A Body Mass Index follow-up plan has been documented for the patient 10/07/2023 9:07 PM EDT documented as of this encounter Care Teams [employer] M[employer] Relationship Specialty Start Date End Date Yonatan Graves DO [facility] [address] [place], [place] [id number] PCP - General 09/24/22 Adryan Bearden PA [address] [place] [id number] Referring Physician Gastroenterology 09/24/22 documented as of this encounter
--- OUTSIDE RECORDS SUMMARY | 2024-05-11 18:31 | XMS_ITS | Encounter Summary ---
Author Organization [facility] Address [address] [place] [address] Care Team Providers Care Mammography Supervisor Name Role Phone Yonatan Graves DO Primary Care Provider Adryan Bearden Unavailable Reason for Referral * Imaging (Routine) - Authorized Specialty Diagnoses / Procedures Referred By Contac t Referred To Contact Radiology Diagnoses Alcoholic cirrhosis of liver with ascites (CMS/HCC) Liver lesion Procedures MR Abdomen w and wo IV Contrast Farida Ortega, BRICKLAYER SUPERVISOR [address] [phone] Phone: tel: fax: Referral ID Status Reason Start Date Expiration Date V isits Requested Visits Authorized [id number] Authorized 04/10/2023 10/09/2024 1 2 Reason for Visit * Imaging (Routine) - Authorized Specialty Diagnoses / Procedures Referred By Contac t Referred To Contact Radiology Diagnoses Alcoholic cirrhosis of liver with ascites (CMS/HCC) Liver lesion Procedures MR Abdomen w and wo IV Contrast Farida Ortega, BRICKLAYER SUPERVISOR [address] [place] [address] Phone: tel: fax: Referral ID Status Reason Start Date Expiration Date V isits Requested Visits Authorized [id number] Authorized 04/10/2023 10/09/2024 1 2 Encounter Details Date Type Department Care Team (Latest Contact Info) Description 08/18/2023 12:24 PM EST - 08/18/2023 11:59 PM EST Hospital Encounter [address] [place] [address] Alcoholic cirrhosis of liver with ascites (CMS/HCC); Liver lesion Discharge Disposition: Home or Self Care Social History Tobacco Use Types Packs/Day Years [...] on file documented as of this encounter Discharge Instructions * Attachments The following attachments cannot be sent through Care Everywhere. * Contrast Imaging Discharge Instructions ([place]) ([place]) documented in this encounter Medications at Time of Discharge Multiple Vitamin (multivitamin) tablet Take 1 tablet by mouth 1 (one) time each day. 12/27/2022 ondansetron ODT (Zofran-ODT) 4 MG disintegrating tablet Take 1 tablet (4 mg) by mouth every 12 (twelve) hours if needed for nausea or vomiting. 60 tablet 2 05/22/2023 4 acamprosate (Campral) 333 MG EC tablet Take 2 tablets (666 mg) by mouth 3 (three) times a day. Do not crush, chew, or split. 180 tablet 05/22/2023 4 clindamycin (Cleocin) 150 MG capsule Take 1 capsule (150 mg) by mouth 4 (four) times a day. 4 clindamycin (Cleocin) 300 MG capsule Take 1 capsule (300 mg) by mouth 3 (three) times a day. 07/15/2023 4 furosemide (Lasix) 20 MG tablet Take 1 tablet (20 mg) by mouth 1 (one) time each day. 30 tablet 2 05/22/2023 4 HYDROcodone-acetami nophen ([place]) 7.5-325 MG tablet Take 1 tablet (7.5 mg of hydrocodone) by mouth every 6 (six) hours if needed for moderate pain or severe pain. 07/16/2023 4 hydrOXYzine HCl (Atarax) 10 MG tablet TAKE 1 TABLET(10 MG) BY MOUTH AT NIGHT NEEDED FOR ANXIETY 30 tablet 2 05/09/2023 4 LORazepam (Ativan) 1 MG tablet Take 2 tablets (2 mg) by mouth 2 (two) times a day if needed for anxiety. 14 tablet 08/15/2023 4 methylPREDNISolone (Medrol Dospak) 4 MG tablets Take 1 tablet (4 mg) by mouth. follow package directions 07/16/2023 4 metroNIDAZOLE (Flagyl) 500 MG tablet Take 1 tablet (500 mg) by mouth 3 (three) times a day. 07/15/2023 4 propranolol (Inderal) 10 MG tablet Take 1 tablet (10 mg) by mouth 2 (two) times a day if needed (anxiety). 60 tablet 05/29/2023 4 spironolactone (Aldactone) 50 MG tablet Take 2 tablets (100 mg) by mouth 1 (one) time each day. 60 each 2 05/22/2023 4 documented as of this encounter Plan of Treatment Not on file documented as of this encounter Procedures Procedure Name Priority Date/Time Associated Diagnosis Comments MR ABDOMEN W AND WO IV CONTRAST Routine 08/18/2023 1:28 PM EST Alcoholic cirrhosis of liver with ascites (CMS/HCC) Liver lesion POCT CREATININE ISTAT UNSOLICITED RESULTS Routine 08/18/2023 12:56 PM EST documented in this encounter Results * MR Abdomen w and wo IV Contrast (08/18/2023 1:28 PM EST) Anatomical Region Laterality Modality Abdomen Magnetic Resonan ce Addenda Addendum by Tanner Panchal MD on 08/18/2023 3:28 PM EST Addendum: ADDENDUM: On re-review, I would like to change my opinion on the subcapsular LR-3 observation . There is precontrast T1 hyperintensity in the aforementioned observations which questions any APHE if at all. This is most likely a benign distinctive regenerative nodule, still technically LR-3 and can be reassessed on the next follow-up. ?? Drafted by Tanner Panchal MD on 08/18/2023 3:24 PM Final report signed by Tanner Panchal MD on 08/18/2023 3:28 PM Impressions 08/18/2023 3:18 PM EST No suspicious LI-RADS 4 or 5 observations. Previously described subcapsular segment III LR-3 observation appears grossly unchanged by size but appears more solidly enhancing on the arterial phase which would meet LR-4 criteria however it is unclear if this is true or artifactual since the lesion itself is much less conspicuous overall. Recommend continued attention with MRI. Nonvisualization of the second LR-3 observation within the segment II. Large volume ascites which is slightly increased from 8 months prior. Patent hepatic vasculature. Otherwise, similar appearance of background cirrhosis and multistation portosystemic collaterals. CRITICAL RESULT: No. COMMUNICATION: Per this written report. LI-RADS M = Probably or definitely malignant but not HCC specific LI-RADS TI-V = Definitely tumor in vein LI-RADS 5 = Definitely hepatocellular carcinoma (concordant with OPTN*) LI-RADS 4 = Probably hepatocellular carcinoma LI-RADS 3 = Intermediate probability for hepatocellular carcinoma LI-RADS 2 = Probably benign LI-RADS 1 = Definitely benign LI-RADS NC = Not categorized secondary to image degradation or omission LI-RADS TR Nonviable - Treated, probably or definitely not viable LI-RADS TR Equivocal - Treated, equivocally viable LI-RADS TR Viable - Treated, probably or definitely viable LI-RADS TR Nonevaluable - Cannot be categorized due to image degradation or omission NOTE: ??LI-RADS categories should be interpreted in the context of other available data, such as biomarkers and the patient's prior probability of developing or having hepatocellular carcinoma. ??The LI-RADS classification of liver lesions has been adopted to standardize CT and MRI scan reporting in patients at risk for hepatocellular carcinoma. CT/MRI LI-RADS and US LI-RADS are consistent with and integrated into the [place] [employer] Study of Liver Diseases (AASLD) 2018 hepatocellular carcinoma (HCC) clinical practice guidance. LI-RADS criteria and documentation are available online at www.acr.org/Quality- Safety/Resources/LIRADS. ??This report utilizes LI-RADS version 2018. *OPTN and LI-RADS criteria for definite HCC are identical except for: 10-19 mm observations with nonrim APHE + nonperipheral washout but without enhancing capsule or threshold growth. Implication: Some LR-5 observations do not count as OPTN 5. By electronically signing this report, I, the attending physician, attest that I have personally reviewed the images/data for the above examination(s) and agree with the final edited report. Drafted by Maurice Sutherland MD on 08/18/2023 1:56 PM Final report signed by Tanner Panchal MD on 08/18/2023 3:18 PM Narrative 08/18/2023 3:18 PM EST CLINICAL INDICATION: Risk for hepatocellular carcinoma. TECHNIQUE: MR imaging of the abdomen was performed without and with intravenous contrast material using the following sequences: coronal single shot T2 weighted fast spin echo, axial T2 weighted sequences with and without fat saturation, axial dual phase gradient echo, pre and dynamic postcontrast 3-D T1 weighted gradient echo with fat saturation (axial and coronal) and axial diffusion. 6.1 mL of Gadavist was administered. Examination meets LI-RADS technical recommendations. COMPARISON: MRI abdomen April 08, 2023 FINDINGS: Liver: Cirrhotic morphology with volume redistribution and marked fissure widening. No significant steatosis or iron deposition. No suspicious LIRADS 4 or 5 lesions. *The previously described 10-12 mm LIRADS 3 observation in segment III is much less conspicuous on the current examination, only subtly visualized on delayed coronal postcontrast 18:40 and arterial phase series 15 image 48. There is however more solid appearing enhancement the arterial phase which however is confounded by volume averaging artifacts on this slice. If this is found to be true, this would upgrade this lesion to LR-4. *The previously described 5 mm segment II LR-3 observation is not visualizable on the current study. Hepatic Vasculature: Hepatic arterial anatomy is standard. The portal and hepatic veins are patent. Redemonstration of multistation patent portosystemic collaterals including large variceal recannulized periumbilical vein moderate amount of fine paraesophageal venous collaterals. Gallbladder and Biliary Tree: Similar appearance of the gallbladder with reactive wall edema. Nondilated biliary tree. Pancreas: Unremarkable. Spleen: Similar splenomegaly. Adrenal Glands: Unremarkable. Kidneys: Unchanged right upper polar renal cortical cysts, one of which shows intrinsic T1 hyperintense hemorrhagic/pernicious contents. Vasculature: Patent major arterial and venous vasculature. Lymph Nodes: No enlarged lymph nodes by size criteria. Fluid Survey: Large volume ascites, slightly increased from 8 months prior. Musculoskeletal: No acute or aggressive findings. Other: Portal enteropathy colopathy and enteropathy. Procedure Note Tanner Panchal MD - 08/18/2023 CLINICAL INDICATION: Risk for hepatocellular carcinoma. TECHNIQUE: MR imaging of the abdomen was performed without and with intravenouscontrast material using the following sequences: coronal single shot [id number] fast spin echo, axial T2 weighted sequences with and without fatsaturation, axial dual phase gradient echo, pre and dynamic postcontrast3-D T1 weighted gradient echo with fat saturation (axial and coronal) andaxial diffusion. 6.1 mL of Gadavist was administered. Examination meets LI-RADS technical recommendations. COMPARISON: MRI abdomen April 08, 2023 FINDINGS: Liver: Cirrhotic morphology with volume redistribution and marked fissurewidening. No significant steatosis or iron deposition. No suspiciousLIRADS 4 or 5 lesions. *The previously described 10-12 mm LIRADS 3 observation in segment III ismuch less conspicuous on the current examination, only subtly visualizedon delayed coronal postcontrast 18:40 and arterial phase series 15 image48. There is however more solid appearing enhancement the arterial phasewhich however is confounded by volume averaging artifacts on this slice.If this is found to be true, this would upgrade this lesion to LR-4. *The previously described 5 mm segment II LR-3 observation is notvisualizable on the current study. Hepatic Vasculature: Hepatic arterial anatomy is standard. The portal andhepatic veins are patent. Redemonstration of multistation patentportosystemic collaterals including large variceal recannulizedperiumbilical vein moderate amount of fine paraesophageal venouscollaterals. Gallbladder and Biliary Tree: Similar appearance of the gallbladder withreactive wall edema. Nondilated biliary tree. Pancreas: Unremarkable. Spleen: Similar splenomegaly. Adrenal Glands: Unremarkable. Kidneys: Unchanged right upper polar renal cortical cysts, one of whichshows intrinsic T1 hyperintense hemorrhagic/pernicious contents. Vasculature: Patent major arterial and venous vasculature. Lymph Nodes: No enlarged lymph nodes by size criteria. Fluid Survey: Large volume ascites, slightly increased from 8 monthsprior. Musculoskeletal: No acute or aggressive findings. Other: Portal enteropathy colopathy and enteropathy. IMPRESSION: No suspicious LI-RADS 4 or 5 observations. Previously described subcapsular segment III LR-3 observation appearsgrossly unchanged by size but appears more solidly enhancing on thearterial phase which would meet LR-4 criteria however it is unclear ifthis is true or artifactual since the lesion itself is much lessconspicuous overall. Recommend continued attention with MRI. Nonvisualization of the second LR-3 observation within the segment II. Large volume ascites which is slightly increased from 8 months prior.Patent hepatic vasculature. Otherwise, similar appearance of background cirrhosis and multistationportosystemic collaterals. CRITICAL RESULT: No. COMMUNICATION: Per this written report. LI-RADS M = Probably or definitely malignant but not HCC specific LI-RADS TI-V = Definitely tumor in vein LI-RADS 5 = Definitely hepatocellular carcinoma (concordant with OPTN*) LI-RADS 4 = Probably hepatocellular carcinoma LI-RADS 3 = Intermediate probability for hepatocellular carcinoma LI-RADS 2 = Probably benign LI-RADS 1 = Definitely benign LI-RADS NC = Not categorized secondary to image degradation or omission LI-RADS TR Nonviable - Treated, probably or definitely not viable LI-RADS TR Equivocal - Treated, equivocally viable LI-RADS TR Viable - Treated, probably or definitely viable LI-RADS TR Nonevaluable - Cannot be categorized due to image degradationor omission NOTE: LI-RADS categories should be interpreted in the context of otheravailable data, such as biomarkers and the patient's prior probability ofdeveloping or having hepatocellular carcinoma. The LI-RADS classificationof liver lesions has been adopted to standardize CT and MRI scan reportingin patients at risk for hepatocellular carcinoma. CT/MRI LI-RADS and USLI-RADS are consistent with and integrated into the [place] [employer]for the Study of Liver Diseases (AASLD) 2018 hepatocellular carcinoma(HCC) clinical practice guidance. LI-RADS criteria and documentation areavailable online at www.acr.org/Quality-Safety/Resources/LIRADS. Thisreport utilizes LI-RADS version 2018. *OPTN and LI-RADS criteria for definite HCC are identical except for:10-19 mm observations with nonrim APHE + nonperipheral washout but withoutenhancing capsule or threshold growth. Implication: Some LR-5 observationsdo not count as OPTN 5. By electronically signing this report, I, the attending physician, brain I have personally reviewed the images/data for the aboveexamination(s) and agree with the final edited report. Drafted by Maurice Sutherland MD on 08/18/2023 1:56 PM Final report signed by Tanner Panchal MD on 08/18/2023 3:18 PM us Farida Ortega APRN IMG MRI PROCEDURES Edited Result - Final * POCT creatinine (08/18/2023 12:56 PM EST) Creatinine, Point of Care 0.6 0.6 - 1.1 mg/dL 08/18/2023 12:58 PM EST [facility] POCT eGFR 121 mL/min/1. 73m*2 08/18/2023 12:58 PM EST [facility] Merchandise Processor ID Maria Elena Arana 08/18/2023 12:58 PM EST [facility] Device ID [id number] 08/18/2023 12:58 PM EST [facility] Comment 08/18/2023 12:58 PM EST [facility] Comment:Testing performed on i-STAT at the point of care. Reported eGFRcr in mL/min/1.73m2 is based the CKD-EPI 2020 equation that does not use a race coefficient. Blood Venous blood specimen / Unknown 08/18/2023 12:56 PM EST 08/18/2023 12:58 PM EST us Generic Provider Poct LAB POINT OF CARE TEST DOCKED DEVICE UNSOLICITED RESULTS Final Result [facility] [address] [id number] documented in this encounter Visit Diagnoses Diagnosis Alcoholic cirrhosis of liver with ascites (CMS/HCC) Liver lesion Other specified disorders of liver documented in this encounter Administered Medications Inactive Administered Medications - up to 3 most recent administrations Medication Order MAR Action Action Date Dose Rate Site gadobutrol (Gadavist) injection 6.1 mmol 6.1 mmol (rounded from 6.12 mmol = 0.1 mL/kg ? 61.2 kg), Intravenous, Once in imaging, 1 dose, Starting on Fri08/18/23 at 1254, Until Fri08/18/23 at 1322, Routine, Imaging Protocol Orders Given 08/18/2023 1:22 PM EST 6.1 mmol Right Antecubital documented in this encounter Additional Health Concerns Assessment Noted Time PHQ-9 Depression Total Score: 8 08/15/19 10:09 AM EST A fall risk assessment has been complete d for the patient 07/17/2023 9:04 AM EST A Body Mass Index follow-up plan has been documented for the patient 08/25/2023 10:19 PM EST documented as of this encounter Care Teams Mammography Supervisor Relationship Specialty Start Date End Date Yonatan Graves DO [facility] [facility] [address] [place] [address] PCP - General 09/24/22 Adryan Bearden PA [address] [place] [address] Referring Physician Gastroenterology 09/24/22 documented as of this encounter
--- OUTSIDE RECORDS SUMMARY | 2024-05-11 18:31 | XMS_ITS | Encounter Summary ---
Author Organization [facility] Address [address] [place] [address] Care Team Providers Care Kidney Trimmer Name Role Phone Yonatan Graevs DO Primary Care Provider Adryan Bearden Unavailable Encounter Details Date Type Department Care Team (Latest Contact Info) Description 11/27/2023 Travel Social History Tobacco Use Types Packs/Day Years Used Date Smoking Tobacco: Former Cigarettes Q uit: 05/14/2019 Passive Smoke Exposure: Past Smokeless Tobacco: Never Alcohol Use Standard Drinks/Week Comments Not Currently 0 (1 standard drink = 0.6 oz pure alcohol) Last drink was first week of July 2023 PHQ-2 Answer Date Recorded Patient Health Questionnaire-2 Score 2 11/27/2023 PHQ-9 Answer Date Recorded Patient Health Questionnaire-9 [...] documented as of this encounter Care Teams Kidney Trimmer Relationship Specialty Start Date End Date Yonatan Graves DO [address] [facility] [address] [place] [address] PCP - General 09/24/22 Adryan Bearden PA [facility] [phone] Referring Physician Gastroenterology 09/24/22 documented as of this encounter
--- OUTSIDE RECORDS SUMMARY | 2024-05-11 18:31 | XMS_ITS | Encounter Summary ---
Author Organization [facility] Address [address] [place] [address] Care Team Providers Care Pin Maker Name Role Phone Yonatan Graves DO Primary Care Provider Adryan Bearden Unavailable Encounter Details Date Type Department Care Team (Latest Contact Info) Description 10/24/2023 Travel Social History Tobacco Use Types Packs/Day [...] Time PHQ-9 Depression Total Score: 8 10/24/19 10:43 AM EDT A fall risk assessment has been complete d for the patient 10/07/2023 9:46 AM EDT A Body Mass Index follow-up plan has been documented for the patient 10/18/2023 1:28 PM EDT documented as of this encounter Care Teams Pin Maker Relationship Specialty Start Date End Date Yonatan Graves DO [address] [facility] [address] [place] [address] PCP - General 09/24/22 Adryan Bearden PA [facility] [phone] Referring Physician Gastroenterology 09/24/22 documented as of this encounter
--- OUTSIDE RECORDS SUMMARY | 2024-05-11 18:31 | XMS_ITS | Encounter Summary ---
Author Organization [facility] Address [address] [id number] Care Team Providers Care Sales Program Coordinator Name Role Phone Yonatan Graves DO Primary Care Provider Adryan Bearden Unavailable Encounter Details Date Type Department Care Team (Latest Contact Info) Description 09/12/2023 Travel Social History Tobacco Use Types Packs/Day Years Used Date Smoking Tobacco: Former Cigarettes Q uit: 05/14/2019 Passive Smoke Exposure: Past Smokeless Tobacco: Never Alcohol Use Standard Drinks/Week Comments Yes 3 (1 standard drink = 0.6 oz pur e alcohol) PHQ-2 Answer Date Recorded Patient Health Questionnaire-2 Score 2 09/12/2023 PHQ-9 Answer Date Recorded Patient Health Questionnaire-9 Score 7 09/12/2023 PHQ-2A Answer Date Recorded Patient Health Questionnaire-2 [...] Noted Time PHQ-9 Depression Total Score: 7 09/12/19 24 9:52 AM EDT A fall risk assessment has been complete d for the patient 08/28/2023 2:06 PM EST A Body Mass Index follow-up plan has been documented for the patient 09/02/2023 11:53 AM EDT documented as of this encounter Care Teams Sales Program Coordinator Relationship Specialty Start Date End Date Yonatan Graves DO [address] [facility] [address] [place] [address] PCP - General 09/24/22 Adryan Bearden PA [facility] [place] [address] Referring Physician Gastroenterology 09/24/22 documented as of this encounter
--- OUTSIDE RECORDS SUMMARY | 2024-05-11 18:31 | XMS_ITS | Encounter Summary ---
Author Organization [facility] Address [address] [place] [address] Care Team Providers Care Warehouse Administrator Name Role Phone Yonatan Graves DO Primary Care Provider Adryan Bearden Unavailable Encounter Details Date Type Department Care Team (Latest Contact Info) Description 10/10/2023 Travel Social History Tobacco Use Types Packs/Day Years Used Date Smoking Tobacco: Former Cigarettes Q uit: 05/14/2019 Passive Smoke Exposure: Past Smokeless Tobacco: Never Alcohol Use Standard Drinks/Week Comments Not Currently 0 (1 standard drink = 0.6 oz pure alcohol) Last drink was first week of July 2023 PHQ-2 Answer Date Recorded Patient Health Questionnaire-2 Score 2 10/10/2023 PHQ-9 Answer Date Recorded Patient Health Questionnaire-9 Score 9 10/10/2023 PHQ-2A Answer Date Recorded Patient Health Questionnaire-2 [...] Noted Time PHQ-9 Depression Total Score: 9 10/10/19 24 10:00 AM EDT A fall risk assessment has been complete d for the patient 10/07/2023 9:46 AM EDT A Body Mass Index follow-up plan has been documented for the patient 10/18/2023 1:28 PM EDT documented as of this encounter Care Teams Warehouse Administrator Relationship Specialty Start Date End Date Yonatan Graves DO [address] [facility] [address] [place] [address] PCP - General 09/24/22 Adryan Bearden PA [facility] [phone] Referring Physician Gastroenterology 09/24/22 documented as of this encounter
--- OUTSIDE RECORDS SUMMARY | 2024-05-11 18:31 | XMS_ITS | Encounter Summary ---
Author Organization [facility] Address [address] [place] [address] Care Team Providers Care Software Architect Name Role Phone Yonatan Graves DO Primary Care Provider Adryan Bearden Unavailable Encounter Details Date Type Department Care Team (Latest Contact Info) Description 10/16/2023 Travel Social History Tobacco Use Types Packs/Day Years Used Date Smoking Tobacco: Former Cigarettes Q uit: 05/14/2019 Passive Smoke Exposure: Past Smokeless Tobacco: Never Alcohol Use Standard Drinks/Week Comments Not Currently 0 (1 standard drink = 0.6 oz pure alcohol) Last drink was first week of July 2023 PHQ-2 Answer Date Recorded Patient Health Questionnaire-2 Score 2 10/16/2023 PHQ-9 Answer Date Recorded Patient Health Questionnaire-9 Score 8 10/16/2023 PHQ-2A Answer Date Recorded Patient Health Questionnaire-2 [...] Noted Time PHQ-9 Depression Total Score: 8 10/16/19 8:02 AM EDT A fall risk assessment has been complete d for the patient 10/07/2023 9:46 AM EDT A Body Mass Index follow-up plan has been documented for the patient 10/18/2023 1:28 PM EDT documented as of this encounter Care Teams Software Architect Relationship Specialty Start Date End Date Yonatan Graves DO [address] [facility] [address] [place] [address] PCP - General 09/24/22 Adryan Bearden PA [facility] [phone] Referring Physician Gastroenterology 09/24/22 documented as of this encounter
--- OUTSIDE RECORDS SUMMARY | 2024-05-11 18:31 | XMS_ITS | Encounter Summary ---
Author Organization [facility] Address [address] [place] [address] Care Team Providers Care Block Cleaner Name Role Phone HildamikeroeYonatan Joseph LLANES Primary Care Provider Adryan Bearden Unavailable Encounter Details Date Type Department Care Team (Late st Contact Info) Description 08/28/2023 Telephone [place] [facility] [address] [place] [id number] Iqra Hernández RN Social History Tobacco Use [...] Telephone Encounter - Iqra Hernández RN - 08/28/2023 8:18 AM EST -Farida requests the pt go to ED due to symptoms and needing physical eval -pt states she will go to ED * Telephone Encounter - Iqra Hernández RN - 08/28/2023 8:03 AM EST -pt stated having increase in abdominal fluid increasing the past couple of day. Pt c/o SOB and pain 01/30. Pt has appt with you today at 2:00 PM but is wanting to know if you can move her TH sooner this morning. She said she is available all day. documented in this encounter Plan of Treatment [...] documented as of this encounter Care Teams Block Cleaner Relationship Specialty Start Date End Date Yonatan Graves DO [facility] [facility] [address] [place] [address] PCP - General 09/24/22 Adryan Bearden PA [address] [place], [place] [id number] Referring Physician Gastroenterology 09/24/22 documented as of this encounter
--- OUTSIDE RECORDS SUMMARY | 2024-05-11 18:31 | XMS_ITS | Encounter Summary ---
Author Organization [facility] Address [address] [place] [address] Care Team Providers Care Charrer Name Role Phone Yonatan Graves DO Primary Care Provider Adryan Bearden Unavailable Encounter Details Date Type Department Care Team (Latest Contact Info) Description 12/08/2023 Travel Social History Tobacco Use Types Packs/Day Years Used Date Smoking Tobacco: Former Cigarettes Q uit: 05/14/2019 Passive Smoke Exposure: Past Smokeless Tobacco: Never Alcohol Use Standard Drinks/Week Comments Not Currently 0 (1 standard drink = 0.6 oz pure alcohol) Last drink was first week of July 2023 PHQ-2 Answer Date Recorded Patient Health Questionnaire-2 Score 2 12/08/2023 PHQ-9 Answer Date Recorded Patient Health Questionnaire-9 Score 10 12/08/2023 PHQ-2A Answer Date Recorded Patient Health Questionnaire-2 [...] Assessment Noted Time PHQ-9 Depression Total Score: 10 024 11:24 AM EDT A fall risk assessment has been complete d for the patient 10/07/2023 9:46 AM EDT A Body Mass Index follow-up plan has been documented for the patient 11/05/2023 5:20 PM EDT documented as of this encounter Care Teams Charrer Relationship Specialty Start Date End Date Yonatan Graves DO [address] [facility] [address] [place] [address] PCP - General 09/24/22 Adryan Bearden PA [facility] [place] [phone] Referring Physician Gastroenterology 09/24/22 documented as of this encounter
--- OUTSIDE RECORDS SUMMARY | 2024-05-11 18:31 | XMS_ITS | Encounter Summary ---
Author Organization [facility] Address [address] [place] [address] Care Team Providers Care Music Video Producer Name Role Phone Yonatan Graves DO Primary Care Provider Adryan Bearden Unavailable Encounter Details Date Type Department Care Team (Latest Contact Info) Description 09/23/2023 Travel Social History Tobacco Use Types Packs/Day [...] documented as of this encounter Care Teams Music Video Producer Relationship Specialty Start Date End Date Yonatan Graves DO [address] [facility] [address] [place] [address] PCP - General 09/24/22 Adryan Bearden PA [facility] [place] [address] Referring Physician Gastroenterology 09/24/22 documented as of this encounter
--- OUTSIDE RECORDS SUMMARY | 2024-05-11 18:31 | XMS_ITS | Encounter Summary ---
Author Organization Healthcare Address [address] [place] [address] Care Team Providers Care Measurement Department Chief Clerk Name Role Phone Jodie Gravesew Joseph LLANES Primary Care Provider Adryan Bearden Unavailable Reason for Visit * Reason Comments Swelling Encounter Details Date Type Department Care Team (Late st Contact Info) Description 08/28/2023 10:21 AM EST - 08/28/2023 1:10 PM EST Emergency [facility] Emergency Department [address] [place] [address] Jasen Blanco MD [address] [place] [address] 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) (Primary Dx) Discharge Disposition: Home or Self Care Social [...] Sign Reading Time Taken Comments Blood Pressure 99/61 08/28/2023 1:07 PM EST Pulse 60 08/28/2023 1:07 PM EST Temperature 36.7 ??C (98 ??F) 08/28/2023 1:07 PM EST Respiratory Rate 16 08/28/2023 1:07 PM EST Oxygen Saturation 96% 08/28/2023 1:07 PM EST Inhaled Oxygen Concentration - - Weight 68.6 kg (151 lb 3.8 oz) 08/28/2023 10:13 AM EST Height 165.1 cm (5' 5 ) 08/28/2023 10:13 AM EST Body Mass Index 25.17 08/28/2023 10:13 AM EST documented in this encounter Discharge Instructions * Discharge Instructions* Jasen Blanco MD - 08/28/2023 12:58 PM EST Please return immediately for any worsening problems or concerns. * Attachments The following attachments cannot be sent through Care Everywhere. * Cirrhosis (Afghan) documented in this encounter Medications at Time of Discharge Multiple Vitamin (multivitamin) tablet Take 1 tablet by mouth 1 (one) time each day. 12/27/2022 oxyCODONE-acetam inophen (Percocet) 5-325 MG tablet Take 1 tablet by mouth every 6 (six) hours if needed for severe pain (pian) for up to 5 days. 20 tablet 08/28/2023 4 acamprosate (Campral) 333 MG EC tablet Take 2 tablets (666 mg) by mouth 3 (three) times a day. Do not crush, chew, or split. 180 tablet 05/22/2023 4 furosemide (Lasix) 20 MG tablet Take 1 tablet (20 mg) by mouth 1 (one) time each day. 30 tablet 2 05/22/2023 4 gabapentin (Neurontin) 100 MG capsule Take 1 capsule (100 mg) by mouth 3 (three) times a day for 4 days, THEN 2 capsules (200 mg) 3 (three) times a day for 10 days. 72 capsule 08/26/2023 4 gabapentin (Neurontin) 300 MG capsule Take 1 capsule (300 mg) by mouth 3 (three) times a day. 21 capsule 09/05/2023 4 hydrOXYzine HCl (Atarax) 10 MG tablet TAKE 1 TABLET(10 MG) BY MOUTH AT NIGHT NEEDED FOR ANXIETY 30 tablet 2 05/09/2023 4 LORazepam (Ativan) 1 MG tablet Take 2 tablets (2 mg) by mouth 2 (two) times a day if needed for anxiety. 14 tablet 08/15/2023 4 methylPREDNISolo ne (Medrol Dospak) 4 MG tablets Take 1 tablet (4 mg) by mouth. follow package directions 07/16/2023 4 metroNIDAZOLE (Flagyl) 500 MG tablet Take 1 tablet (500 mg) by mouth 3 (three) times a day. 07/15/2023 4 naloxone (Kloxxado) 8 mg/0.1 mL nasal spray 1. Give 1 spray in nostril for no/slow breathing or cannot wake after opioid use 2. Call 911 3. Repeat in other nostril if symptoms continue 1 each 08/28/2023 4 propranolol (Inderal) 10 MG tablet Take 1-2 tablets as needed for anxiety 15 tablet 08/26/2023 4 spironolactone (Aldactone) 50 MG tablet Take 2 tablets (100 mg) by mouth 1 (one) time each day. 60 each 2 05/22/2023 4 documented as of this encounter Miscellaneous Notes * ED Procedure Note - Jasen Blanco MD - 08/28/2023 9:46 AM EST Associated Order(s): POC Ultrasound - Bedside Procedure Reason: ascites assessment POC Ultrasound - Bedside Performed by: Jasen Blanco MD Authorized by: Jasen Blanco MD Procedure specific details: Bowel Ultrasound A focused ultrasound exam of the abdomen was performed to evaluate for bowel pathology. The ultrasound was performed with the following indications, as noted in the H&P: ascites Identified structures: Small bowel Findings Exam of the above structures revealed the following findings: Moderate ascites but intestines abutting the abdominal wall, not large volume enough for paracentesis Impression: Moderate volume ascites The images were Saved in both Qpath - E and PACS. The study was technically adequate. Jasen Blanco MD 08/28/23 1137 * ED Provider Notes - Jasen Blanco MD - 08/28/2023 9:46 AM EST Images from the original note were not included. - HPI Chief Complaint Patient presents with Swelling Mindy Wade is a 33 y.o. female PMH cirrhosis, anxiety, asthma, seizures who presents to the ED with swelling. Pt c/o increased swelling and pain to abdomen, face, BLE. Spouse states that patient has been experiencing swelling x 1 yr with sx greatly worsening x3 mo. Spouse states that patientswelling was previously located to abdomen and face but is now spreading to BLE, adding it's worse everyday . Spouse reports patient BLE edema was so significant yesterday he was able to leave a hand print on pt thigh. Spouse states they were advised to present to ED for evaluation of fluid removal. Spouse adds that patient is weak and frequently falls due to sx. Spouse states patient has stage 3 cirrhosis and is not on the transplant list currently. Spouse states treatment center has been bouncing us around a lot and giving them no answers or plan. Spouse states that they have asked to be transferred but have not been able to establish at another facility at this time. Patient adds that she also has gallstones and gallbladder issues but is unable to have cholecystectomy due to scar tissue which is adding to her pain. Patient states she has stopped consuming alcohol. Patient endorses use of spironolactone, furosemide, 100 mg gabapentin x3 per day, recently switched to propanolol from ativan. Patient adds that diuretics are no longer working. Patient has no other complaints atthis time. History provided by: Patient and spouse administrative staff supervisor used: No No data recorded Patient History Past 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: Diagnosis Date Anxiety Asthma Cirrhosis (CMS/HCC) 10/13 Conversions - Other History of Infectious viral hepatitis 2016 Liver disease 10/13 Personal history of urinary calculi History of renal calculi Seizures (CMS/HCC) Past Surgical History: Procedure Laterality Date APPENDECTOMY 2014 DILATION AND CURETTAGE OF UTERUS KIDNEY SURGERY stent placement TONSILLECTOMY 2009 Family History Problem Relation Name Age of Onset Epilepsy Sister Barby caal Autoimmune disease Sister Barby caal Diabetes Maternal Grandfather Aaron Hernández Arthritis Maternal Grandfather Aaron Hernández Arthritis Maternal Grandmother Gina hernández Tobacco Use Smoking status: Former Packs/day: 0.00 Years: 2.00 Additional pack years: 0.00 Total pack years: 0.00 Types: Cigarettes Quit date: 05/14/2021 Years since quittin.2 Passive exposure: Past Smokeless tobacco: Never Vaping Use Vaping Use: Never used Substance Use Topics Alcohol use: Yes Alcohol/week: 3.0 standard drinks of alcohol Types: 3 Standard drinks or equivalent per week Drug use: Not Currently Types: Fentanyl, Oxycodone Comment: Drug use: No drug use Immunization History Immunization History: not reviewed Allergies: Allergies Allergen Reactions Amoxicillin Rash Morphine Other - please document in the comment field Penicillins Rash and Unknown - Patient states they do not know rxn details Review of Systems Review of Systems HENT: Positive for facial swelling. Cardiovascular: Positive for leg swelling. Gastrointestinal: Positive for abdominal distention and abdominal pain. Neurological: Positive for weakness. All other systems reviewed and are negative. Physical Exam ED Triage Vitals [08/28/23 1013] Temp Heart Rate Resp BP 36.8 ??C (98.2 ??F) 60 16 110/70 SpO2 Temp Source Heart Rate Source Patient Position 99 % Oral -- Sitting BP Location FiO2 (%) Right arm -- Physical Exam Vitals and nursing note reviewed. Constitutional: General: She is not in acute distress. Appearance: Normal appearance. She is normal weight. She is not ill-appearing, toxic-appearing or diaphoretic. HENT: Head: Normocephalic and atraumatic. Nose: Nose normal. Mouth/Throat: Mouth: Mucous membranes are moist. Eyes: Conjunctiva/sclera: Conjunctivae normal. Cardiovascular: Rate and Rhythm: Normal rate. Pulmonary: Effort: Pulmonary effort is normal. No respiratory distress. Breath sounds: No stridor. Abdominal: General: There is distension. Palpations: Abdomen is soft. Tenderness: There is no abdominal tenderness. There is no guarding. Musculoskeletal: General: No deformity. Normal range of motion. Cervical back: Neck supple. Right lower leg: Pitting Edema present. Left lower leg: Pitting Edema present. Comments: 0-1+ pitting edema Skin: General: Skin is warm and dry. Neurological: General: No focal deficit present. Mental Status: She is alert and oriented to person, place, and time. Mental status is at baseline. Psychiatric: Mood and Affect: Mood normal. Affect is tearful. Behavior: Behavior normal. ED Course & MDM ED Course as of 08/29/23 0751 Janiya Aug 28, 2023 1056 EKG now - STAT (adult) The EKG was independently reviewed and interpreted by me. It reveals a normal sinus rhythm, normal rate, normal QRS, Qtc 474, and no STEMI [BB] 1159 WBC: 7.26 nl [BB] 1159 Hemoglobin: 11.7 nl [BB] 1239 Sodium: 138 MELD-Na today is 19 [BB] ED Course User Index [BB] Jasen Blanco MD Clinical Impressions as of 08/29/23 0751 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) - Medical Decision Making Date/Time: 08/28/2023/11:32 AM Entered by Meeta Aponte acting as scribe for Dr. Jasen Blanco MD. Attending Attestation: The documentation was recorded by Meeta Aponte, acting as scribe in my presence at the time of the encounter and accurately reflects the service I personally performed. Mindy Wade is a 33 yrs old female presents today for Chief Complaint Patient presents with Swelling . Based on her history and physical exam, my differential diagnosis included cirrhosis, edema, ascites. Ruling out the most morbid conditions drove my clinical assessment. In order to fully explore differential these tests and treatments were ordered. Orders Placed This Encounter Procedures CBC and Differential Comprehensive Metabolic Panel, Plasma Prothrombin Time/INR Test Qualitative Plasma Urinalysis with reflex microscopic (Culture NOT Included) ED Protocol - HIV 1/2 Antibody/Antigen Screen w/Reflex to HIV 1/2 Differentiation ED HIV 1/2 Antibody/Antigen Screen w/Reflex to HIV 1/2 Differentiation EKG now - STAT (adult) Medications - No data to display Old records for this patient were reviewed and found to be pertinent. Records review indicates thatoutside records reveal care by hepatology . It should be noted that her chronic conditions includes cirrhosis, which currently is not at goal therapy. This complicates her clinical picture because it increases the amount and complexity of datato be reviewed. 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 Lab results were reviewed independently and can be interpreted as non actionable - MELD sore is 19 today. Abd exam is benign, no concern for SBP or surgical process. BSUS reveals ascites but without a safely accessible pocket from which to drain. Patient reevaluated after treatments provided and condition improved with medications given. Pt safe for dc. Follow-up and return precautions discussed. Patient understanding and in agreement with plan. Based on work up today patient did not require consult with any service Ultimately, this patient was Was discharged Home (Discharge) The encounter diagnosis was 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). . Patient wascounseled on the diagnoses.Discharge medications if any are listed below. Listed medications are thought be either curative for listed diagnoses or will help control ongoing symptoms. Patient is requested to follow up with Patient's primary care provider and hepatology in order to obtain specialty care. Instructions on follow up as well as precautions to return to the ER provided verbally by the EDMD, as well as written in patients discharge education packet. Specific instructions provided are as follows: Discharge Instructions Please return immediately for any worsening problems or concerns. Discharge References/Attachments Cirrhosis (Afghan) Disposition Discharge AVS (Printed 08/28/2023) There are no outpatient Patient Instructions on file for this admission. ED Prescriptions None Sign Off Checklist Clinical Impression: Complete ED Disposition: Complete - Jasen Blanco MD 08/29/23 0753 * ED Triage Notes - Joseph Reyna RN - 08/28/2023 9:46 AM EST Pt having BLE swelling and abdominal swelling. Liver dr told her to come to ER. Pain in chest, back, and flanks. documented in this encounter Plan of Treatment Not on file documented as of this encounter Procedures Procedure Name Priority Date/Time Associated Diagnosis Comments EXTRA TUBE URINE HERNANDEZ Routine 08/28/2023 11:41 AM EST URINALYSIS WITH REFLEX MICROSCOPIC STAT 08/28/2023 11:41 AM EST ED HIV 1/2 ANTIBODY/ANTIGEN SCREEN WITH REFLEX TO HIV I/II DIFFERENTIATION STAT 08/28/2023 11:39 AM EST ED PROTOCOL HIV 1/2 ANTIBODY/ANTIGEN SCREEN W/REFLEX TO HIV 1/2 ANTIBODY DIFFERENTIATION STAT 08/28/2023 11:39 AM EST PROTHROMBIN TIME(PT) / INR STAT 08/28/2023 11:39 AM EST CBC WITH AUTO DIFFERENTIAL STAT 08/28/2023 11:39 AM EST TEST QUALITATIVE PLASMA STAT 08/28/2023 11:39 AM EST COMPREHENSIVE METABOLIC PANEL, PLASMA STAT 08/28/2023 11:39 AM EST ECG ADULT STAT 08/28/2023 10:54 AM EST [facility] ED POCUS PROCDOC Routine 08/28/2023 9:46 AM EST documented in this encounter Results * Urine Hernandez (08/28/2023 11:41 AM EST) Urine Hernandez Hold for add-ons 08/28/2023 2:01 PM EST [facility] Comment:Hold for add-ons Urine Urine specimen obtained by clean catch procedure / Unknown Non-blood Collection / Unknown 08/28/2023 11:41 AM EST 08/28/2023 11:45 AM EST us Jasen Blanco MD LAB URINE ORDERABLES Fin al Result [facility] [address] [place] [address] * Urinalysis with reflex microscopic (Culture NOT Included) (08/28/2023 11:41 AM EST) Color, Urine Yellow LAB URINALYSIS - AUTOMATED METHOD 08/28/2023 11:50 AM EST [facility] Clarity, Urine Clear LAB URINALYSIS - AUTOMATED METHOD 08/28/2023 11:50 AM EST [facility] Spec Wrights, Urine 1.011 <=1.005 to >=1.030 LAB URINALYSIS - AUTOMATED METHOD 08/28/2023 11:50 AM EST [facility] pH, Urine 7.5 4.5 to 8 LAB URINALYSIS - AUTOMATED METHOD 08/28/2023 11:50 AM EST [facility] Protein, Urine Negative Negative mg/dL LAB URINALYSIS - AUTOMATED METHOD 08/28/2023 11:50 AM EST [facility] Glucose, Urine Negative Negative mg/dL LAB URINALYSIS - AUTOMATED METHOD 08/28/2023 11:50 AM EST [facility] Ketones, Urine Negative Negative mg/dL LAB URINALYSIS - AUTOMATED METHOD 08/28/2023 11:50 AM EST [facility] Blood, Urine Negative Negative LAB URINALYSIS - AUTOMATED METHOD 08/28/2023 11:50 AM EST [facility] Bilirubin, Urine Negative Negative LAB URINALYSIS - AUTOMATED METHOD 08/28/2023 11:50 AM EST [facility] Urobilinogen, Urine 1.0 0.2 to 1.0 mg/dL LAB URINALYSIS - AUTOMATED METHOD 08/28/2023 11:50 AM EST [facility] Leukocytes, Urine Negative Negative LAB URINALYSIS - AUTOMATED METHOD 08/28/2023 11:50 AM EST [facility] Nitrite, Urine Negative Negative LAB URINALYSIS - AUTOMATED METHOD 08/28/2023 11:50 AM EST [facility] Urine Urine specimen obtained by clean catch procedure / Unknown Non-blood Collection / Unknown 08/28/2023 11:41 AM EST 08/28/2023 11:45 AM EST us Jasen Blanco MD LAB URINE ORDERABLES Fin al Result [facility] [address] [place] [id number] * ED HIV 1/2 Antibody/Antigen Screen w/Reflex to HIV 1/2 Differentiation (08/28/2023 11:39 AM EST) Pathologist [facility] HIV 1 & 2 Antibody/Antigen Screen Non Reactive Non Reactive 08/28/2023 12:23 PM EST [facility] Comment:Screening for HIV 1 & 2 antibodies, and P24 antigen is NONREACTIVE. No confirmatory testing is required. Blood Venous blood specimen / Unknown Venipuncture / Unknown 08/28/2023 11:39 AM EST 08/28/2023 11:45 AM EST Jasen Blanco MD LAB BLOOD ORDERABLES Fin al Result Performing Organization Address [facility] Co de Phone Number [facility] [address] [place] [address] * Test Qualitative Plasma (08/28/2023 11:39 AM EST) Pathologist [facility] Test Negative Negative 08/28/2023 12:14 PM EST [facility] Blood Venous blood specimen / Unknown Venipuncture / Unknown 08/28/2023 11:39 AM EST 08/28/2023 11:45 AM EST Narrative [facility] - 08/28/2023 12:14 PM EST Reference Range: Males and non- females: Negative. us Jasen Blanco MD LAB BLOOD ORDERABLES Fin al Result Performing Organization Address [facility] Co de Phone Number [facility] [address] [place] [address] * (ABNORMAL) Prothrombin Time/INR (08/28/2023 11:39 AM EST) Pathologist [facility] Prothrombin Time 20.8(H) 12.0 - 14.3 sec 08/28/2023 12:00 PM EST [facility] INR 1.8(H) 0.9 - 1.1 08/28/2023 12:00 PM EST [facility] Blood Venous blood specimen / Unknown Venipuncture / Unknown 08/28/2023 11:39 AM EST 08/28/2023 11:45 AM EST Narrative [facility] - 08/28/2023 12:00 PM EST OPTIMAL INR RANGES FOR PATIENT ON ORAL ANTICOAGULANT THERAPY Prevention of venous thromboembolism ?INR 2.0 to 3.0 In patients with heart disease: Atrial fibrillation ?INR 2.0 to 3.0 Valvular heart disease ? INR 2.0 to 3.0 Tissue heart valves ?INR 2.0 to 3.0 Mechanical prosthetic valves ? INR 2.5 to 3.5 Prevention of recurrent IA ? INR 2.5 to 3.5 us Jasen Blanco MD LAB BLOOD ORDERABLES Jeison al Result [facility] [address] [place] [address] * (ABNORMAL) Comprehensive Metabolic Panel, Plasma (08/28/2023 11:39 AM EST) Glucose, Plasma 101(H) 74 - 99 mg/dL 08/28/2023 12:14 PM EST [facility] BUN, Plasma 5(L) 7 - 21 mg/dL 08/28/2023 12:14 PM EST [facility] Creatinine, Plasma 0.69 0.60 - 1.10 mg/dL 08/28/2023 12:14 PM EST [facility] BUN/Creatinine Ratio 7 08/28/2023 12:14 PM EST [facility] Sodium, Plasma 138 136 - 145 mmol/L 08/28/2023 12:14 PM EST [facility] Potassium, Plasma 3.6(L) 3.7 - 4.8 mmol/L 08/28/2023 12:14 PM EST [facility] Chloride, Plasma 107 97 - 107 mmol/L 08/28/2023 12:14 PM EST [facility] CO2, Plasma 23 22 - 29 mmol/L 08/28/2023 12:14 PM EST [facility] Anion Gap 8 6 - 16 mmol/L 08/28/2023 12:14 PM EST [facility] Total Calcium, Plasma 8.3(L) 8.9 - 10.2 mg/dL 08/28/2023 12:14 PM EST [facility] Total Protein 6.1(L) 6.3 - 7.9 g/dL 08/28/2023 12:14 PM EST [facility] Albumin, Plasma 2.8(L) 3.5 - 5.2 g/dL 08/28/2023 12:14 PM EST [facility] AST, Plasma 61(H) 10 - 35 U/L 08/28/2023 12:14 PM EST [facility] ALT, Plasma 39(H) 10 - 35 U/L 08/28/2023 12:14 PM EST [facility] Alkaline Phosphatase, Plasma 129(H) 35 - 104 U/L 08/28/2023 12:14 PM EST [facility] Total Bilirubin, Plasma 4.0(H) 0.2 - 1.1 mg/dL 08/28/2023 12:14 PM EST [facility] eGFRcr 117.7 mL/min/1.7 3m*2 08/28/2023 12:14 PM EST [facility] Comment:Reported eGFRcr in m L/min/1.73m2 is based the CKD-EPI 2020 equation that does not use a race coefficient. Blood Venous blood specimen / Unknown Venipuncture / Unknown 08/28/2023 11:39 AM EST 08/28/2023 11:45 AM EST us Jasen Blanco MD LAB BLOOD ORDERABLES Fin al Result [facility] [address] [place] [address] * (ABNORMAL) CBC and Differential (08/28/2023 11:39 AM EST) WBC Count 7.26 3.70 - 10.30 10*3/uL LAB HEMATOLOGY METHOD 08/28/2023 11:57 AM EST [facility] RBC Count 3.19(L) 3.90 - 5.20 10*6/uL LAB HEMATOLOGY METHOD 08/28/2023 11:57 AM EST [facility] HGB 11.7 11.2 - 15.7 g/dL LAB HEMATOLOGY METHOD 08/28/2023 11:57 AM EST [facility] HCT 34.3 34.0 - 45.0 % LAB HEMATOLOGY METHOD 08/28/2023 11:57 AM EST [facility] Platelet Count 110(L) 155 - 369 10*3/uL LAB HEMATOLOGY METHOD 08/28/2023 11:57 AM EST [facility] MCV 108(H) 79 - 98 fL LAB HEMATOLOGY METHOD 08/28/2023 11:57 AM EST [facility] MCH 36.7(H) 26.0 - 32.0 pg LAB HEMATOLOGY METHOD 08/28/2023 11:57 AM EST [facility] MCHC 34.1 30.7 - 35.5 g/dL LAB HEMATOLOGY METHOD 08/28/2023 11:57 AM EST [facility] RDW 13.8 11.5 - 14.5 % LAB HEMATOLOGY METHOD 08/28/2023 11:57 AM EST [facility] MPV 11.0 8.8 - 12.5 fL LAB HEMATOLOGY METHOD 08/28/2023 11:57 AM EST [facility] nRBC 0.0 <=0.0 per 100 WBCs LAB HEMATOLOGY METHOD 08/28/2023 11:57 AM EST [facility] Differential Type Automated LAB HEMATOLOGY METHOD 08/28/2023 11:57 AM EST [facility] Neutrophils % 59.0 % LAB HEMATOLOGY METHOD 08/28/2023 11:57 AM EST [facility] Lymphocytes % 25.0 % LAB HEMATOLOGY METHOD 08/28/2023 11:57 AM EST [facility] Monocytes % 11.0 % LAB HEMATOLOGY METHOD 08/28/2023 11:57 AM EST [facility] Eosinophils % 4.0 % LAB HEMATOLOGY METHOD 08/28/2023 11:57 AM EST [facility] Basophils % 1.0 % LAB HEMATOLOGY METHOD 08/28/2023 11:57 AM EST [facility] Immature Granulocytes % 0.0 % LAB HEMATOLOGY METHOD 08/28/2023 11:57 AM EST [facility] Neutrophils Absolute 4.22 1.60 - 6.10 10*3/uL LAB HEMATOLOGY METHOD 08/28/2023 11:57 AM EST [facility] Lymphocytes Absolute 1.81 1.20 - 3.90 10*3/uL LAB HEMATOLOGY METHOD 08/28/2023 11:57 AM EST [facility] Monocytes Absolute 0.83 0.30 - 0.90 10*3/uL LAB HEMATOLOGY METHOD 08/28/2023 11:57 AM EST [facility] Eosinophils Absolute 0.31 0.00 - 0.50 10*3/uL LAB HEMATOLOGY METHOD 08/28/2023 11:57 AM EST [facility] Basophils Absolute 0.07 0.00 - 0.10 10*3/uL LAB HEMATOLOGY METHOD 08/28/2023 11:57 AM EST [facility] Immature Granulocytes Absolute 0.02 0.00 - 0.06 10*3/uL LAB HEMATOLOGY METHOD 08/28/2023 11:57 AM EST [facility] Blood Venous blood specimen / Unknown Venipuncture / Unknown 08/28/2023 11:39 AM EST 08/28/2023 11:45 AM EST Narrative [facility] - 08/28/2023 11:57 AM EST Therapeutic decision making should be based on absolute values, rather than percentages. us Jasen Blanco MD LAB BLOOD ORDERABLES Fin al Result Performing Organization Address City/[facility]/ZIP Co de Phone Number [facility] [address] [place] [address] * EKG now - STAT (adult) (08/28/2023 10:54 AM EST) EKG DIAGNOSIS CLASS Abnormal MUSE ECG Ventricular Rate 68 BPM MUSE ECG Atrial Rate 68 BPM MUSE ECG VT Interval 118 ms MUSE ECG QRSD Interval 78 ms MUSE ECG QT Interval 446 ms MUSE ECG QTC Interval 474 ms MUSE ECG P [place] 28 degrees MUSE ECG R [place] 14 degrees MUSE ECG T Wave [place] 30 degrees MUSE ECG Diagnosis Normal sinus rhythm MUSE ECG Diagnosis Cannot rule out MUSE ECG Diagnosis Anterior infarct MUSE ECG Diagnosis , age undetermined MUSE ECG Diagnosis Abnormal ECG MUSE ECG Diagnosis Confirmed by Adonis De Anda ([id number]) on 08/28/2023 8:01:34 PM MUSE ECG 08/28/2023 10:5 4 AM EST 08/28/2023 8:01 PM EST us Jasen Blanco MD ECG ORDERABLES Final Re sult MUSE ECG * [facility] ED POCUS PROCDOC (08/28/2023 9:46 AM EST) Narrative Jasen Blanco MD - 08/28/2023 9:46 AM EST Jasen Blanco MD ? 08/28/2023 11:37 AM POC Ultrasound - Bedside Performed by: Jasen Blanco MD Authorized by: Jasen Blanco MD ?? Procedure specific details: ?? Bowel Ultrasound A focused ultrasound exam of the abdomen was performed to evaluate for bowel pathology. The ultrasound was performed with the following indications, as noted in the H&P: ascites Identified structures: Small bowel Findings Exam of the above structures revealed the following findings: Moderate ascites but intestines abutting the abdominal wall, not large volume enough for paracentesis Impression: Moderate volume ascites The images were Saved in both Qpath - E and PACS. The study was technically adequate. us Jasen Blanco MD IN CLINIC/BEDSIDE ORDERA BLES Final Result documented in this encounter Visit Diagnoses Diagnosis 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)- Primary documented in this encounter Administered Medications Inactive Administered Medications - up to 3 most recent administrations Medication Order MAR Action Action Date Dose Rate Site HYDROmorphone (Dilaudid) injection 0.5 mg 0.5 mg, Intravenous, Once, 1 dose, On Janiya 08/28/23 at 1150, STAT Given 08/28/2023 12:06 PM EST 0.5 mg ondansetron (Zofran) injection 4 mg 4 mg, Intravenous, Once, 1 dose, On Janiya 08/28/23 at 1150, Routine Given 08/28/2023 12:06 PM EST 4 mg ondansetron (Zofran) injection 4 mg 4 mg, Intravenous, Once, 1 dose, On Janiay 08/28/23 at 1240, Routine Given 08/28/2023 12:37 PM EST 4 mg documented in this encounter Active and Recently Administered Medications Times are shown in EST. Scheduled Medication Order 08/26/2023 08/27/2023 08/28/2023 HYDROmorphone (Dilaudid) injection 0.5 mg (COMPLETED) 0.5 mg, Intravenous, Once, 1 dose, On Janiya 08/28/23 at 1150, STAT 1206 (Given - Provid er: Asha Larsen) ondansetron (Zofran) injection 4 mg (COMPLETED) 4 mg, Intravenous, Once, 1 dose, On Janiya 08/28/23 at 1150, Routine 1206 (Given - Provid er: Asha Larsen) ondansetron (Zofran) injection 4 mg (COMPLETED) 4 mg, Intravenous, Once, 1 dose, On Janiya 08/28/23 at 1240, Routine 1237 (Given - Provid er: Asha Larsen) documented in this encounter Additional Health Concerns Assessment Noted Time PHQ-9 Depression Total Score: 8 08/25/19 10:39 AM EST A fall risk assessment has been complete d for the patient 08/28/2023 2:06 PM EST A Body Mass Index follow-up plan has been documented for the patient 09/02/2023 11:53 AM EDT documented as of this encounter Care Teams Measurement Department Chief Clerk Relationship Specialty Start Date End Date Yonatan Graves DO [address] [place] [address] [address] [place] [phone] PCP - General 09/24/22 Adyran Bearden PA [address] [place], [place] [phone] Referring Physician Gastroenterology 09/24/22 documented as of this encounter
--- OUTSIDE RECORDS SUMMARY | 2024-05-11 18:31 | XMS_ITS | Encounter Summary ---
Author Organization [facility] Address [address] [place] [address] Care Team Providers Care Reducer Name Role Phone Yonatan rGaves DO Primary Care Provider Adryan Bearden Unavailable Reason for Referral * Consultation (Routine) - Closed Specialty Diagnoses / Procedures Referred By Contac t Referred To Contact Transplant Diagnoses End-stage liver disease (CMS/HCC) Eloisa Natarajan MD [address] [facility] [address] [place] [address] Phone: tel: fax: Referral ID Status Reason Start Date Expiration Date V isits Requested Visits Authorized [id number] Closed Specialty Services Required 09/25/2023 03/26/2025 1 1 Encounter Details Date Type Department Care Team (Late st Contact Info) Description 09/25/2023 Orders Only [facility] [address] [facility] [address] [place] [address] Isabelle Broussard RN [id number] [address] [place] [address] End-stage liver disease (CMS/HCC) (Primary Dx) Social [...] of this encounter Plan of Treatment Scheduled Referrals Name Type Priority Associated Diagnoses Order Schedule Ambulatory referral to Transplant Hepatology Outpatient Referral Routine End-stage liver disease (CMS/HCC) Expected: 10/07/2023, Expires: 03/26/2025 documented as of this encounter Visit Diagnoses [...] documented as of this encounter Care Teams Reducer Relationship Specialty Start Date End Date Yonatan Graves DO [address] [place] [address] [address] [place] [address] PCP - General 09/24/22 Adryan Bearden PA [address] [place] [address] Referring Physician Gastroenterology 09/24/22 documented as of this encounter
--- OUTSIDE RECORDS SUMMARY | 2024-05-11 18:31 | XMS_ITS | Encounter Summary ---
Author Organization [facility] Address [address] [place] [address] Care Team Providers Care Portrait Consultant Name Role Phone Yonatan Graves DO Primary Care Provider Adryan Bearden Unavailable Encounter Details Date Type Department Care Team (Latest Contact Info) Description 11/10/2023 Travel Social History Tobacco Use Types Packs/Day Years Used Date Smoking Tobacco: Former Cigarettes Q uit: 05/14/2019 Passive Smoke Exposure: Past Smokeless Tobacco: Never Alcohol Use Standard Drinks/Week Comments Not Currently 0 (1 standard drink = 0.6 oz pure alcohol) Last drink was first week of July 2023 PHQ-2 Answer Date Recorded Patient Health Questionnaire-2 Score 2 11/10/2023 PHQ-9 Answer Date Recorded Patient Health Questionnaire-9 Score 9 11/10/2023 PHQ-2A Answer Date Recorded Patient Health Questionnaire-2 [...] Noted Time PHQ-9 Depression Total Score: 9 11/10/19 9:42 AM EDT A fall risk assessment has been complete d for the patient 10/07/2023 9:46 AM EDT A Body Mass Index follow-up plan has been documented for the patient 11/05/2023 5:20 PM EDT documented as of this encounter Care Teams Portrait Consultant Relationship Specialty Start Date End Date Yonatan Graves DO [address] [facility] [address] [place] [address] PCP - General 09/24/22 Adryan Bearden PA [facility] [place] [phone] Referring Physician Gastroenterology 09/24/22 documented as of this encounter
--- OUTSIDE RECORDS SUMMARY | 2024-05-11 18:31 | XMS_ITS | Encounter Summary ---
Author Organization [facility] Address [address] [place] [address] Care Team Providers Care Aircraft Part Assembler Name Role Phone Yonatan Graves DO Primary Care Provider Adryan Bearden Unavailable Encounter Details Date Type Department Care Team (Latest Contact Info) Description 08/18/2023 Travel Social History Tobacco Use Types Packs/Day [...] documented as of this encounter Care Teams Aircraft Part Assembler Relationship Specialty Start Date End Date Yonatan Graves DO [address] [facility] [address] [place] [address] PCP - General 09/24/22 Adryan Bearden PA [facility] [place] [address] Referring Physician Gastroenterology 09/24/22 documented as of this encounter
--- OUTSIDE RECORDS SUMMARY | 2024-05-11 18:31 | XMS_ITS | Encounter Summary ---
Author Organization [facility] Address [address] [place] [address] Care Team Providers Care Picc Nurse Name Role Phone Yonatan Graves DO Primary Care Provider Adryan Bearden Unavailable Encounter Details Date Type Department Care Team (Latest Contact Info) Description 10/06/2023 Travel Social History Tobacco Use Types Packs/Day Years Used Date Smoking Tobacco: Former Cigarettes Q uit: 05/14/2019 Passive Smoke Exposure: Past Smokeless Tobacco: Never Alcohol Use Standard Drinks/Week Comments Yes 3 (1 standard drink = 0.6 oz pur e alcohol) PHQ-2 Answer Date Recorded Patient Health Questionnaire-2 Score 0 10/07/2023 PHQ-9 Answer Date Recorded Patient Health Questionnaire-9 [...] documented as of this encounter Care Teams Picc Nurse Relationship Specialty Start Date End Date Yonatan Graves DO [address] [facility] [address] [place] [address] PCP - General 09/24/22 Adryan Bearden PA [facility] [place] [address] Referring Physician Gastroenterology 09/24/22 documented as of this encounter
--- OUTSIDE RECORDS SUMMARY | 2024-05-11 18:31 | XMS_ITS | Encounter Summary ---
Author Organization [facility] Address [address] [place] [address] Care Team Providers Care Technical Sales Support Manager Name Role Phone Yonatan Graves DO Primary Care Provider Adryan Bearden Unavailable Encounter Details Date Type Department Care Team (Late st Contact Info) Description 08/28/2023 Orders Only External Location [address] [place] [address] Provider, External Social History Tobacco Use Types Packs/Day Years [...] Procedure Name Priority Date/Time Associated Diagnosis Comments POC ULTRASOUND 08/28/2023 documented in this encounter Results * POC Imaging (08/28/2023) Anatomical Region Laterality Modality Pelvis Other 08/28/2023 us External Provider IMG POINT OF CARE ULTRASOUND F inal Result documented in this encounter Visit Diagnoses Not [...] documented as of this encounter Care Teams Technical Sales Support Manager Relationship Specialty Start Date End Date Yonatan Graves DO [address] [place] [address] [address] [place] [phone] PCP - General 09/24/22 Adryan Bearden PA [address] [place], [place] [phone] Referring Physician Gastroenterology 09/24/22 documented as of this encounter
--- OUTSIDE RECORDS SUMMARY | 2024-05-11 18:32 | XMS_ITS | Encounter Summary ---
Author Organization [facility] Address [address] [place] [address] Care Team Providers Care Publicity Expert Name Role Phone Yonatan Graves DO Primary Care Provider Adryan Bearden Unavailable Encounter Details Date Type Department Care Team (Latest Contact Info) Description 04/02/2023 Travel Social History Tobacco Use Types Packs/Day Years Used Date Smoking Tobacco: Former Cigarettes Q uit: 05/14/2019 Passive Smoke Exposure: Past Smokeless Tobacco: Never Alcohol Use Standard Drinks/Week Comments Yes 0 (1 standard drink = 0.6 oz pur e alcohol) PHQ-2 Answer Date Recorded Patient Health Questionnaire-2 Score 0 04/03/2023 PHQ-9 Answer Date Recorded Patient Health Questionnaire-9 Score 13 11/01/2022 Comments Unknown Sex and Gender Information Value [...] Noted Time PHQ-9 Depression Total Score: 13 023 7:33 AM EDT A fall risk assessment has been complete d for the patient 02/19/2023 11:07 AM EDT A Body Mass Index follow-up plan has been documented for the patient 12/29/2022 9:05 PM EDT documented as of this encounter Care Teams Publicity Expert Relationship Specialty Start Date End Date Yonatan Graves DO [facility] [facility] [address] [place] [address] PCP - General 09/24/22 Adryan Bearden PA [facility] [place] [address] Referring Physician Gastroenterology 09/24/22 documented as of this encounter
--- OUTSIDE RECORDS SUMMARY | 2024-05-11 18:32 | XMS_ITS | Encounter Summary ---
Author Organization [facility] Address [address] [place] [address] Care Team Providers Care Behavioral Health Consultant Name Role Phone Yonatan Graves DO Primary Care Provider Adryan Bearden Unavailable Encounter Details Date Type Department Care Team (Late st Contact Info) Description 04/24/2023 Orders Only [facility] [address] [place] [address] Pao Salmeron, RN [facility] Alcoholic cirrhosis of liver with ascites (CMS/HCC) Social History Tobacco Use Types Packs/Day Years Used Date Smoking Tobacco: Former Cigarettes Q uit: 05/14/2019 Passive Smoke Exposure: Past Smokeless Tobacco: Never Alcohol Use Standard Drinks/Week Comments Yes 0 (1 standard drink = 0.6 oz pur e alcohol) PHQ-2 Answer Date Recorded Patient Health Questionnaire-2 Score 0 04/10/2023 PHQ-9 Answer Date Recorded Patient Health Questionnaire-9 Score 13 11/01/2022 PHQ-2A Answer Date Recorded Patient Health Questionnaire-2 Score 0 04/10/2023 Comments Unknown Sex and Gender Information Value Date Recorded Sex Assigned at Not on file Legal Sex Female 6:24 PM EDT Gender Identity Not on file Sexual Orientation Not on file documented as of this encounter Plan of Treatment Not on file documented as of this encounter Procedures Procedure Name Priority Date/Time Associated Diagnosis Comments CBC W/O DIFFERENTIAL Routine 04/24/2023 11:39 AM EDT Alcoholic cirrhosis of liver with ascites (CMS/HCC) COMPREHENSIVE METABOLIC PANEL, PLASMA Routine 04/24/2023 11:39 AM EDT Alcoholic cirrhosis of liver with ascites (CMS/HCC) PROTHROMBIN TIME(PT) / INR Routine 04/24/2023 Alcoholic cirrhosis of liver with ascites (CMS/HCC) documented in this encounter Results * CBC W/O Differential (04/24/2023 11:39 AM EDT) Blood Venous blood specimen / Unknown us Farida D Shannon ACUTE CARE NURSE PRACTITIONER LAB BLOOD ORDERABLES Final Result Performing Organization Address City/[facility] Co de Phone Number EXTERNAL LAB * Comprehensive Metabolic Panel, Plasma (04/24/2023 11:39 AM EDT) Blood Venous blood specimen / Unknown us Farida D Shannon ACUTE CARE NURSE PRACTITIONER LAB BLOOD ORDERABLES Final Result Performing Organization Address [facility] Co de Phone Number EXTERNAL LAB * Prothrombin Time/INR (04/24/2023) Blood Venous blood specimen / Unknown us Farida D Shannon ACUTE CARE NURSE PRACTITIONER LAB BLOOD ORDERABLES Final Result Performing Organization Address [facility] Co de Phone Number EXTERNAL LAB documented in this encounter Visit Diagnoses Diagnosis Alcoholic cirrhosis of liver with ascites (CMS/HCC) documented in this encounter Additional Health Concerns Assessment Noted Time PHQ-9 Depression Total Score: 13 023 7:33 AM EDT A fall risk assessment has been complete d for the patient 04/10/2023 12:11 PM EDT A Body Mass Index follow-up plan has been documented for the patient 12/29/2022 9:05 PM EDT documented as of this encounter Care Teams Behavioral Health Consultant Relationship Specialty Start Date End Date Yonatan Graves DO [address] [place] [address] [address] [place] [phone] PCP - General 09/24/22 Adryan Bearden PA [address] [place], [place] [phone] Referring Physician Gastroenterology 09/24/22 documented as of this encounter
--- OUTSIDE RECORDS SUMMARY | 2024-05-11 18:32 | XMS_ITS | Encounter Summary ---
Author Organization [facility] Address [address] [place] [address] Care Team Providers Care Tool Clerk Name Role Phone Yonatan Graves DO Primary Care Provider Adryan Bearden Unavailable Reason for Referral * Consultation (Routine) - Closed Specialty Diagnoses / Procedures Referred By Roselyn mccollum Referred To Contact Addiction Medicine Diagnoses End-stage liver disease (CMS/HCC) Liver lesion Farida Ortega, COFFEE PLANTATION WORKER [address] [address] Phone: tel: fax: Referral ID Status Reason Start Date Expiration Date V isits Requested Visits Authorized [id number] Closed Specialty Services Required 02/19/2023 08/20/2024 1 1 Scheduling Instructions Pls schedule appt with Dr. Guajardo for Alcohol use disorder. Reason for Visit * Reason Comments End-Stage Liver Disease * Consultation (Routine) - Closed Specialty Diagnoses / Procedures Referred By Roselyn mccollum Referred To Contact Gastroenterology Diagnoses End-stage liver disease (CMS/HCC) Liver lesion 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) Farida Ortega APRN [address] [address] Phone: tel: fax: Referral ID Status Reason Start Date Expiration Date V isits Requested Visits Authorized [id number] Closed Specialty Services Required 12/30/2022 06/30/2024 1 1 Encounter Details Date Type Department Care Team (Late st Contact Info) Description 02/19/2023 10:[address] [facility] Medicine Specialties [address] [place] [address] Farida Ortega, COFFEE PLANTATION WORKER [address] [place] [address] End-stage liver disease (CMS/HCC) (Primary Dx); Alcoholic cirrhosis of liver with ascites (CMS/HCC); Liver lesion; 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); Alcohol abuse Social History Tobacco Use Types Packs/Day Years Used Date Smoking Tobacco: Former Cigarettes Q uit: 05/14/2019 Passive Smoke Exposure: Past Smokeless Tobacco: Never Alcohol Use Standard Drinks/Week Comments Yes 0 (1 standard drink = 0.6 oz pur e alcohol) PHQ-2 Answer Date Recorded Patient Health Questionnaire-2 Score 1 02/19/2023 PHQ-9 Answer Date Recorded Patient Health Questionnaire-9 Score 13 11/01/2022 Comments Unknown Sex and Gender Information Value Date Recorded Sex Assigned at Not on file Legal Sex Female 6:24 PM EDT Gender Identity Not on file Sexual Orientation Not on file documented as of this encounter Last Filed Vital Signs Vital Sign Reading Time Taken Comments Blood Pressure 118/73 02/19/2023 11:00 AM EDT Pulse 92 02/19/2023 11:00 AM EDT Temperature 36.8 ??C (98.2 ??F) 02/19/2023 11:00 AM E DT Respiratory Rate - - Oxygen Saturation 97% 02/19/2023 11:00 AM EDT Inhaled Oxygen Concentration - - Weight 66.7 kg (147 lb 0.8 oz) 02/19/2023 11:00 AM EDT Height 165.1 cm (5' 5 ) 02/19/2023 11:00 AM EDT Body Mass Index 24.47 02/19/2023 11:00 AM EDT documented in this encounter Miscellaneous Notes * Progress Notes - Farida Ortega, MARCUS - 02/19/2023 10:40 AM EDT Transplant Hepatology Clinic. Subjective Patient ID: Mindy Wade is a 33 y.o. female. Dear Adryan Bearden PA-C HPI : Mindy Wade is a 32yo female with history of cirrhosis seen in initial consultation forcirrhosis of liver, referred from [facility]. Etiology Alcohol, hx of hepatitis C. . Pt has history of chronic HCV, diagnosed many years ago, was treated with harvoni in 2018 and achieved SVR per outside notes. 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 She was accompanied with her today. Transplant was deferred as her PeTH stay positive. She reports she had extremities cramping. She took magnesium from her friends and some vitamin drinks. Denies recent admission. C.o nausea. Decrease appetite. C/o diarrhea. Denies hematemesis, , melena, denies confusion. She is on diuretics. She is taking multivitamin, CBD gummies. . She denied history of GI bleed, encephalopathy or LVP. Last alcohol 1 week ago. She said she drinking few drinks of wine coller a week. She said she is cutting down. I offered IP detox , she refused. She Denies any s/s of withdrawal when she skips a day. She agreesto see medical policy specialist. She said she also need help with anxiety. She said she does not need counseling or addiction referral. She reports she can stop on her own. She never has LVP , she is on lasix 20 mg and spironolactone 50 mg a day. She feels slight distention. She c/o abdomen pain and blames on her GB. She also said her autoimmune marker are elevated and adamant that her liver disease is due to autoimmune or GB. I discussed in length. Autoimmune marker can be seen in cirrhosis and alcohol liver disease and her peth is markedly positive , AST >ALT. Denies current confusion, forgetfulness, hematemesis, coffee ground emesis, melena, hematochezia, difficulty breathing, fever, and chills. Outside records AST>ALT, bilirubin ~4, ALP 141, [...] except as in HPI Objective Visit Vitals BP 118/73 Pulse 92 Temp 36.8 ??C (98.2 ??F) Ht 1.651 m (5' 5 ) Wt 66.7 kg (147 lb 0.8 oz) SpO2 97% BMI 24.47 kg/m?? Smoking Status Former BSA 1.75 m?? Physical Exam Constitutional: General: She is not in acute distress. Appearance: Normal appearance. She is not toxic-appearing. HENT: Head: Normocephalic and atraumatic. Eyes: General: Scleral icterus present. Cardiovascular: Rate and Rhythm: Normal rate and regular rhythm. Pulmonary: Effort: Pulmonary effort is normal. Breath sounds: Normal breath sounds. Abdominal: General: Abdomen is flat. There is no distension. Palpations: Abdomen is soft. Tenderness: There is abdominal tenderness in the right upper quadrant. There is no right CVA tenderness, guarding or rebound. Negative signs include Emery's sign. Comments: Mild RUQ tenderness Musculoskeletal: Right lower leg: No edema. Left lower leg: No edema. Skin: Coloration: Skin is jaundiced. Neurological: Mental Status: She is alert and oriented to person, place, and time. Psychiatric: Mood and Affect: Mood normal. Behavior: Behavior normal. Assessment/Plan Mindy was seen today for end-stage liver disease. Diagnoses and all orders for this visit: End-stage liver disease (CMS/HCC) (Primary) - Ambulatory referral to Gastroenterology - Comprehensive Metabolic Panel, Plasma - CBC W/O Differential - Prothrombin Time/INR - Alpha Fetoprotein, Serum - Ambulatory referral to Chemical Dependency; Future Alcoholic cirrhosis of liver with ascites (CMS/HCC) Liver lesion - Ambulatory referral to Gastroenterology - Ambulatory referral to Chemical Dependency; Future 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) - Ambulatory referral to Gastroenterology Alcohol abuse MELD 3.0: 22 at 12/27/2022 9:52 AM MELD-Na: 20 at 12/27/2022 9:52 AM Calculated from: Serum Creatinine: 0.55 mg/dL (Using min of 1 mg/dL) at 12/27/2022 9:52 AM Serum Sodium: 135 mmol/L at 12/27/2022 9:52 AM Total Bilirubin: 6.1 mg/dL at 12/27/2022 9:52 AM Serum Albumin: 3.3 g/dL at 12/27/2022 9:52 AM INR(ratio): 1.7 at 12/27/2022 9:52 AM Age at listing (hypothetical): 32 years Sex: Female at 12/27/2022 9:52 AM 33 year-old white female with alcohol related liver disease, presumably decompensated with ascites here for follow up. Decompensated cirrhosis secondary to HCV and alcohol use History of HCV, treated in 2018 MELD 3.0: 22 at 12/27/2022 ,MELD-Na: 20 Patient did not go to labs today. Active alcohol use, urine alcohol was positive 12/2022 . States she drinks 4-5 drinks per week. Lastdrink was 1 weeks I counseled the patient and family about [...] Transplant deferred due to active alcohol use. - advise to start multivitamin. # Abnormal LFTs with AST>ALT, elevated MCV, most likely secondary to active alcohol use Had positive ASMA and IgG from outside. Repeat iGG and ASMA IgG <1:20, IGG 2118. AIH process unlikely in the setting of active alcohol use as repeat ASMA negative. 10/2022 Hep C RNA not detected, hep B serology negative , HIV negative Alcohol Use disorder. Agree to see in addiction clinic. Referred. Appt on 04/03/2023. RUQ pain : She was seen by local surgeon MR Abdomen today reviewed Gallbladder and biliary tree: There is gallbladder wall thickening/edema,likely secondary to hypoproteinemic state in this patient with known history of hepatocellular disease.. No biliary duct dilatation is noted. advised that alcohol cessation and avoid greasy/fatty food will likely help with her symptoms. Report to ER if fever, worsening abdominal pain, worsening jaundice. Ascites. Controlled now. Never LVP, but did report abdominal swelling before starting diuretics. Prior imaging showed ascites. On Lasix 20mg daily & Aldactone 100mg daily. C/o increase abdomen distention though not distended to the point she would need LVP. Continue current regimen. Enforced 2 gram sodium diet. Hypokalemia 3.3 Increase spironolactone to 100 mg a day which will help with ascites and K as well. . Repeat BMP in1 week. Esophageal varices surveillance: No prior GIB. EGD 10/2022: no EV or GV. Mild to moderate PHG Educated about signs and symptoms of variceal bleed, advised to report to ER should they occur HCC surveillance: CTAP w/o 09/12: cirrhosis and large ascites RUQ US 10/13: no mention of liver lesions AFP is 16.2 10/2022 . Repeat today. MR abdomen 12/27/2022 : reviewed Most inferior lesion measures approximately 1 cm and demonstrates capsule appearance, without evidence of hyperenhancement or washout; LI-RADS 3. Observation 2: More superior lesion measures approximately 6 mm and demonstrates no hyperenhancement or washout; LI-RADS 3. Repeat MRI in 3 months. Schedule on 03/2023. # Anxiety : Hydroxyzine 10 mg at night. # Nausea/Vomiting : Zofran as needed. Health maintenance: Immune to hep A, needs Hepatitis B - declined. HCV PCR not detected. Follow up in about 2 months (around 04/21/2023). documented in this encounter Plan of Treatment Scheduled Orders Name Type Priority Associated Diagnoses Orde r Schedule Comprehensive Metabolic Panel, Plasma Lab Routine End-stage liver disease (CMS/HCC) Ordered: 02/19/2023 CBC W/O Differential Lab Routine End-stage liver disease (CMS/HCC) Ordered: 02/19/2023 Prothrombin Time/INR Lab Routine End-stage liver disease (CMS/HCC) Ordered: 02/19/2023 Alpha Fetoprotein, Serum Lab Routine End-stage liver disease (CMS/HCC) Ordered: 02/19/2023 Scheduled Referrals Name Type Priority Associated Diagnoses Order Schedule Ambulatory referral to Chemical Dependency Outpatient Referral Routine End-stage liver disease (CMS/HCC) Liver lesion 1 Occurrences starting 02/19/2023 until 08/20/2024 documented as of this encounter Visit Diagnoses Diagnosis End-stage liver disease (CMS/HCC)- Primary Other sequelae of chronic liver disease Alcoholic cirrhosis of liver with ascites (CMS/HCC) Liver lesion Other specified disorders of liver 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) Alcohol abuse Nondependent alcohol abuse, unspecified drinking behavior documented in this encounter Additional Health Concerns Assessment Noted Time PHQ-9 Depression Total Score: 13 023 7:33 AM EDT A fall risk assessment has been complete d for the patient 02/19/2023 11:07 AM EDT A Body Mass Index follow-up plan has been documented for the patient 12/29/2022 9:05 PM EDT documented as of this encounter Care Teams Tool Clerk Relationship Specialty Start Date End Date Yonatan Graves DO [address] [place] [address] [place], [place] [id number] PCP - General 09/24/22 Adryan Bearden PA [address] [place], [place] [phone] Referring Physician Gastroenterology 09/24/22 documented as of this encounter
--- OUTSIDE RECORDS SUMMARY | 2024-05-11 18:32 | XMS_ITS | Encounter Summary ---
Author Organization [facility] Address [address] [id number] Care Team Providers Care Program Associate Name Role Phone Yonatan Graves DO Primary Care Provider Adryan Bearden Unavailable Encounter Details Date Type Department Care Team (Late st Contact Info) Description 12/27/2022 11:00 AM EDT Office Visit [facility] [address] [facility] [address] [place] [address] Farida Ortega, MACHINING TECHNICIAN [address] [facility] [address] [place] [address] End-stage liver disease (CMS/HCC) (Primary Dx); 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); Abnormal LFTs; Alcohol use; Nausea; Anxiety; Liver lesion Social History Tobacco Use Types Packs/Day Years Used Date Smoking Tobacco: Former Cigarettes Q uit: 04/2021 Smokeless Tobacco: Never Tobacco Cessation:Counseling Given: Not Answered Alcohol Use Standard Drinks/Week Comments No 0 (1 standard drink = 0.6 oz pur e alcohol) PHQ-2 Answer Date Recorded Patient Health Questionnaire-2 Score 3 11/01/2022 PHQ-9 Answer Date Recorded Patient Health Questionnaire-9 Score 13 11/01/2022 Comments Unknown Sex and Gender Information Value Date Recorded Sex Assigned at Not on file Legal Sex Female 6:24 PM EDT Gender Identity Not on file Sexual Orientation Not on file documented as of this encounter Last Filed Vital Signs Vital Sign Reading Time Taken Comments Blood Pressure 120/81 12/27/2022 10:45 AM EDT Pulse 101 12/27/2022 10:45 AM EDT Temperature 37 ??C (98.6 ??F) 12/27/2022 10:45 AM EDT Respiratory Rate 18 12/27/2022 10:45 AM EDT Oxygen Saturation 99% 12/27/2022 10:45 AM EDT Inhaled Oxygen Concentration - - Weight 69 kg (152 lb 1.9 oz) 12/27/2022 10:45 AM EDT Height 165.1 cm (5' 5 ) 12/27/2022 10:45 AM EDT Body Mass Index 25.31 12/27/2022 10:45 AM EDT documented in this encounter Miscellaneous Notes * Progress Notes - Farida Ortega, MACHINING TECHNICIAN - 12/27/2022 11:00 AM EDT Transplant Hepatology Clinic. Subjective Patient ID: Mindy Wade is a 32 y.o. female. Dear Adryan Bearden PA-C HPI Mindy Wade is a 32yo female with history of cirrhosis seen in pre liver transplant clinic for follow up. . Pt has history of chronic HCV, diagnosed many years ago, was treated with harvoni in 2018 and achieved SVR per outside notes. 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 Last seen on 11/01/2022. She was accompanied with her today. She feels more tired and unable to sleep. Denies hematemesis, , melena, denies confusion. She is on diuretics. She is taking multivitamin, CBD gummies. . She said appetite is not good. She has nausea, CBD gummies helping, ran out of zofran. Denies emesis. C/o diarrhea since 3 months. She denied history of GI bleed, encephalopathy or LVP. Last alcohol 12/24/2022, she had 1 wine cooler. She said she is cutting down alcohol intake. She saidshe had couple of drink since last visit. She said she does not need counseling or addiction referral. She reports she can stop on her own. She used to drink alcohol about 4-5 drinks a week mainly wine. She never hs LVP , she is on lasix 20 mg and spironolactone 50 mg a day. She feels slight distention. She c/o abdomen pain and blames on her GB. She has MRI schedule later today. She is asking for something for anxiety. Denies current confusion, forgetfulness, hematemesis, coffee ground [...] off work for now. Review of Systems 14 point ROS reviewed and negative except as in HPI Objective Visit Vitals BP 120/81 Pulse 101 Temp 37 ??C (98.6 ??F) Resp 18 Ht 1.651 m (5' 5 ) Wt 69 kg (152 lb 1.9 oz) SpO2 99% BMI 25.31 kg/m?? Smoking Status Former BSA 1.78 m?? Physical Exam Constitutional: General: She is [...] leg: No edema. Skin: Coloration: Skin is not jaundiced. Neurological: Mental Status: She is alert and oriented to person, place, and time. Psychiatric: Mood and Affect: Mood normal. Behavior: Behavior normal. Assessment/Plan Diagnoses and all orders for this visit: End-stage liver disease (CMS/HCC) (Primary) 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) Abnormal LFTs - Antinuclear Antibody (BLUE), HEp-2, IgG Alcohol use Nausea Anxiety Liver lesion Other orders - Multiple Vitamin (multivitamin) tablet; Take 1 tablet by mouth 1 (one) time each day. - Discontinue: ondansetron (Zofran) 4 MG tablet; Take 1 tablet (4 mg) by mouth every 12 (twelve) hours if needed for nausea or vomiting. - ondansetron (Zofran) 4 MG tablet; Take 1 tablet (4 mg) by mouth every 12 (twelve) hours if neededfor nausea or vomiting. - spironolactone (Aldactone) 50 MG tablet; Take 2 tablets (100 mg) by mouth 1 (one) time each day. - hydrOXYzine HCl (Atarax) 10 MG tablet; Take 1 tablet (10 mg) by mouth at night if needed for anxiety. MELD-Na: 20 at 12/27/2022 9:52 AM MELD: 19 at 12/27/2022 9:52 AM Calculated from: Serum Creatinine: 0.55 mg/dL (Using min of 1 mg/dL) at 12/27/2022 9:52 AM Serum Sodium: 135 mmol/L at 12/27/2022 9:52 AM Total Bilirubin: 6.1 mg/dL at 12/27/2022 9:52 AM INR(ratio): 1.7 at 12/27/2022 9:52 AM 32 year-old white female with alcohol related liver disease, presumably decompensated with ascites here for follow up. Decompensated cirrhosis secondary to HCV and alcohol use History of HCV, treated in 2018 Last MELD-Na 19, MELD today 20 MELD 20. Active alcohol use, urine alcohol was positive on last visit . States she drinks 4-5 drinks per week. Last drink was 12/24/2022. I counseled the patient and family about cirrhosis, natural history, prognosis, potential complications of cirrhosis and management of complications of cirrhosis, indications/contraindications for liver transplant, benefits/risks of transplant including process of transplant evaluation. We had an extensive discussion on the importance of abstinence from any alcohol use and there is nosafe amount of alcohol. Will defer eval given active alcohol use and reassess in 4 weeks. Will have SW evaluate today. Avoid NSAIds, can use tylenol up to 2000mg/day as needed. Her case will be discussed in our weekly transplant committee . - advise to start multivitamin. PETH pending. Abnormal LFTs with AST>ALT, elevated MCV, most likely secondary to active alcohol use Had positive ASMA and IgG from outside. Repeat iGG and ASMA IgG <1:20, IGG 2118. AIH process unlikely in the setting of active alcohol use as repeat ASMA negative. Case was discussed with Dr. Landin. 10/2022 Hep C RNA not detected, hep B serology negative , HIV negative RUQ pain : She was seen by [...] if fever, worsening abdominal pain, worsening jaundice. Plan to do MRCP with next MRI Ascites. Controlled now. Never LVP, but did report abdominal swelling before starting diuretics. Prior imaging showed ascites. On Lasix 20mg daily & Aldactone 50mg daily. C/o increase abdomen distention though not distended to the point she would need LVP. Increase spironolactone 100 mg and continue lasix 20. She is slightly hypokalemic so will balance her KCL as well. Continue current regimen. Enforced 2 gram sodium [...] lesions AFP is 16.2 10/2022 . Repeat on next visit. MR abdomen 12/27/2022 : reviewed Most inferior lesion measures approximately 1 cm and demonstrates capsule appearance, without evidence of hyperenhancement or washout; LI-RADS 3. Observation 2: More superior lesion measures approximately 6 mm and demonstrates no hyperenhancement or washout; LI-RADS 3. Repeat MRI in 3 months. # Anxiety : Hydroxyzine 10 mg at night. # Nausea/Vomiting : Zofran as needed. Health maintenance: Immune to hep A, will need hep B vaccine ( offer next visit) HCV PCR not detected. Transplant status: defer eval, reassess in 4 weeks, SW next visit and repeat [facility] in 4 weeks. A total of 64 minutes was spent during this visit for care coordination, including review of medical records and previous notes, obtaining history and physical exam, ordering tests, changes in medications, counseling patient about prognosis, treatment options, instructions for management, consult with peers and clinical documentation in the patient's clinic note documented in this encounter Plan of Treatment Scheduled Orders Name Type Priority Associated Diagnoses Orde r Schedule Antinuclear Antibody (BLUE), HEp-2, IgG Lab Routine Abnormal LFTs Ordered: 12/27/2022 documented as of this encounter Visit Diagnoses Diagnosis End-stage liver disease (CMS/HCC)- Primary Other sequelae of chronic liver disease 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) Abnormal LFTs Alcohol use Other problems related to lifestyle Nausea Nausea alone Anxiety Anxiety state, unspecified Liver lesion Other specified disorders of liver documented in this encounter Additional Health Concerns Assessment Noted Time PHQ-9 Depression Total Score: 13 023 7:33 AM EDT A fall risk assessment has been complete d for the patient 11/01/2022 7:33 AM EDT A Body Mass Index follow-up plan has been documented for the patient 12/29/2022 9:05 PM EDT documented as of this encounter Care Teams Program Associate Relationship Specialty Start Date End Date Yonatan Graves DO [address] [place] [address] [address] [place] [address] PCP - General 09/24/22 Adryan Bearden PA [address] [place] [address] Referring Physician Gastroenterology 09/24/22 documented as of this encounter
--- OUTSIDE RECORDS SUMMARY | 2024-05-11 18:32 | XMS_ITS | Encounter Summary ---
Author Organization [facility] Address [address] [place] [address] Care Team Providers Care Community Engagement Specialist Name Role Phone Yonatan Graves Joseph LLANES Primary Care Provider Adryan Bearden Unavailable Reason for Visit * Reason Comments Alcohol Use Disorder Encounter Details Date Type Department Care Team (Late st Contact Info) Description 07/17/2023 9:00 AM EST Office Visit [facility] Medicine Specialties [address] [place] [address] Kierra Guajardo MD [address] [facility] [address] [place] [address] Alcohol use disorder (Primary Dx); End-stage liver disease (CMS/HCC); Generalized anxiety disorder Social History Tobacco Use Types Packs/Day Years Used Date Smoking Tobacco: Former Cigarettes Q uit: 05/14/2019 Passive Smoke Exposure: Past Smokeless Tobacco: Never Alcohol Use Standard Drinks/Week Comments Yes 3 (1 standard drink = 0.6 oz pur e alcohol) PHQ-2 Answer Date Recorded Patient Health Questionnaire-2 Score 2 07/22/2023 PHQ-9 Answer Date Recorded Patient Health Questionnaire-9 Score 7 07/22/2023 PHQ-2A Answer Date Recorded Patient Health Questionnaire-2 [...] - Inhaled Oxygen Concentration - - Weight 65.8 kg (145 lb) 07/17/2023 9:00 AM EST Height 165.1 cm (5' 5 ) 07/17/2023 9:00 AM EST Body Mass Index 24.13 07/17/2023 9:00 AM EST documented in this encounter Plan of Treatment Not on file documented as of this encounter Visit Diagnoses Diagnosis Alcohol use disorder- Primary End-stage liver disease (CMS/HCC) Other sequelae of chronic liver disease Generalized anxiety disorder documented in this encounter Additional Health Concerns Assessment Noted Time PHQ-9 Depression Total Score: 13 023 7:33 AM EDT A fall risk assessment has been complete d for the patient 07/17/2023 9:04 AM EST A Body Mass Index follow-up plan has been documented for the patient 07/27/2023 6:29 PM EST documented as of this encounter Care Teams Community Engagement Specialist Relationship Specialty Start Date End Date Yonatan Graves DO [address] [place] [address] [address] [place] [id number] PCP - General 09/24/22 Adryan Bearden PA [address] [place], [place] [phone] Referring Physician Gastroenterology 09/24/22 documented as of this encounter
--- OUTSIDE RECORDS SUMMARY | 2024-05-11 18:32 | XMS_ITS | Encounter Summary ---
Author Organization [facility] Address [address] [place] [address] Care Team Providers Care Forex Trader Name Role Phone Yonatan Graves DO Primary Care Provider Adryan Bearden Unavailable Encounter Details Date Type Department Care Team (Latest Contact Info) Description 10/31/2022 Travel Social History Tobacco Use Types Packs/Day Years Used Date Smoking Tobacco: Every Day Alcohol Use Standard Drinks/Week Comments No 0 [...] on filedocumented in this encounter Care Teams Forex Trader Relationship Specialty Start Date End Date Yonatan Graves DO [address] [facility] [address] [place] [address] PCP - General 09/24/22 Adryna Bearden PA [address] [place] [address] Referring Physician Gastroenterology 09/24/22 documented as of this encounter
--- OUTSIDE RECORDS SUMMARY | 2024-05-11 18:32 | XMS_ITS | Encounter Summary ---
Author Organization [facility] [place] Address [address] [place] [address] Care Team Providers Care Tennis Coach Name Role Phone Jodie Gravesew Joseph LLANES Primary Care Provider Adryan Bearden Unavailable Encounter Details Date Type Department Care Team (Late st Contact Info) Description 04/03/2023 Telephone [facility] [address] [place] [address] Kierra Guajardo MD [address] [facility] [address] [place] [address] Social History Tobacco Use Types Packs/Day Years [...] encounter Miscellaneous Notes * Telephone Encounter - Quinn Diana - 04/15/2023 4:28 PM EDT Got appointment that was convenient to patient. * Telephone Encounter - Diana Ball - 04/15/2023 4:27 PM EDT ----- Message from Kierra Guajardo MD sent at 04/13/2023 10:44 PM EDT ----- Regarding: follow up Please contact patient to schedule follow up on telehealth in 2-3 weeks * Telephone Encounter - Aster Irving - 04/03/2023 2:45 PM EDT Patient Phone Message Reason for Call: Pt is asking to schedule a TH appt with Dr. Guajardo in 2-3 weeks. No appointmentsare populating for her. Best contact number and optimal time of day to reach caller: [phone] Note: Please do not reply to this message. Follow-up communication and further actions as a result of this message need to be communicated with the patient directly, if the patient is not active onMyChart. If the patient is active on MyChart, they will receive notification of the communication/outcome via [employer]. documented in this encounter Plan of Treatment Not on file documented as of this encounter Visit Diagnoses Not on filedocumented in this encounter Additional Health Concerns Assessment Noted Time PHQ-9 Depression Total Score: 13 023 7:33 AM EDT A fall risk assessment has been complete d for the patient 04/03/2023 1:25 PM EDT A Body Mass Index follow-up plan has been documented for the patient 12/29/2022 9:05 PM EDT documented as of this encounter Care Teams Tennis Coach Relationship Specialty Start Date End Date Yonatan Graves DO [facility] [address] [place] [address] PCP - General 09/24/22 Adryan Bearden PA [address] [place] [address] Referring Physician Gastroenterology 09/24/22 documented as of this encounter
--- OUTSIDE RECORDS SUMMARY | 2024-05-11 18:32 | XMS_ITS | Encounter Summary ---
Author Organization [facility] Address [address] [place] [address] Care Team Providers Care Instructional Designer Name Role Phone Yonatan Graves DO Primary Care Provider Adryan Bearden Unavailable Encounter Details Date Type Department Care Team (Latest Contact Info) Description 07/17/2023 Travel Social History Tobacco Use Types Packs/Day Years Used Date Smoking Tobacco: Former Cigarettes Q uit: 05/14/2019 Passive Smoke Exposure: Past Smokeless Tobacco: Never Alcohol Use Standard Drinks/Week Comments Yes 3 (1 standard drink = 0.6 oz pur e alcohol) PHQ-2 Answer Date Recorded Patient Health Questionnaire-2 Score 2 07/17/2023 PHQ-9 Answer Date Recorded Patient Health Questionnaire-9 [...] documented as of this encounter Care Teams Instructional Designer Relationship Specialty Start Date End Date Yonatan Graves DO [facility] [address] [place] [address] PCP - General 09/24/22 Adryan Bearden PA [facility] [place] [address] Referring Physician Gastroenterology 09/24/22 documented as of this encounter
--- OUTSIDE RECORDS SUMMARY | 2024-05-11 18:32 | XMS_ITS | Encounter Summary ---
Author Organization [facility] Address [address] [place] [address] Care Team Providers Care Dollyman Name Role Phone Yonatan Graves DO Primary Care Provider Adryan Bearden Unavailable Encounter Details Date Type Department Care Team (Latest Contact Info) Description 07/22/2023 Travel Social History Tobacco Use Types Packs/Day [...] Noted Time PHQ-9 Depression Total Score: 7 07/22/19 24 11:16 AM EST A fall risk assessment has been complete d for the patient 07/17/2023 9:04 AM EST A Body Mass Index follow-up plan has been documented for the patient 07/27/2023 6:29 PM EST documented as of this encounter Care Teams Dollyman Relationship Specialty Start Date End Date Yonatan Graves DO [address] [facility] [address] [place] [address] PCP - General 09/24/22 Adryan Bearden PA [facility] [place] [address] Referring Physician Gastroenterology 09/24/22 documented as of this encounter
--- OUTSIDE RECORDS SUMMARY | 2024-05-11 18:32 | XMS_ITS | Encounter Summary ---
Author Organization [facility] Address [address] [place] [address] Care Team Providers Care Msw Name Role Phone Yonatan Graves DO Primary Care Provider Adryan Bearden Unavailable Encounter Details Date Type Department Care Team (Latest Contact Info) Description 08/11/2023 Travel Social History Tobacco Use Types Packs/Day Years Used Date Smoking Tobacco: Former Cigarettes Q uit: 05/14/2019 Passive Smoke Exposure: Past Smokeless Tobacco: Never Alcohol Use Standard Drinks/Week Comments Yes 3 (1 standard drink = 0.6 oz pur e alcohol) PHQ-2 Answer Date Recorded Patient Health Questionnaire-2 Score 2 08/10/2023 PHQ-9 Answer Date Recorded Patient Health Questionnaire-9 Score 8 08/10/2023 PHQ-2A Answer Date Recorded Patient Health Questionnaire-2 [...] Noted Time PHQ-9 Depression Total Score: 8 08/10/19 9:49 PM EST A fall risk assessment has been complete d for the patient 07/17/2023 9:04 AM EST A Body Mass Index follow-up plan has been documented for the patient 07/27/2023 6:29 PM EST documented as of this encounter Care Teams Msw Relationship Specialty Start Date End Date Yonatan Graves DO [address] [facility] [address] [place] [address] PCP - General 09/24/22 Adryan Bearden PA [facility]8 [place] [address] Referring Physician Gastroenterology 09/24/22 documented as of this encounter
--- OUTSIDE RECORDS SUMMARY | 2024-05-11 18:32 | XMS_ITS | Encounter Summary ---
Author Organization [facility] Address [address] [place] [address] Care Team Providers Care Residential Collections Name Role Phone Yonatan Graves DO Primary Care Provider Adryan Bearden Unavailable Encounter Details Date Type Department Care Team (Late st Contact Info) Description 10/11/2022 Orders Only External Location [address] [place] [address] Provider, External Social History Tobacco Use Types Packs/Day Years Used Date Smoking Tobacco: Every Day Alcohol Use Standard Drinks/Week Comments No 0 (1 standard drink = 0.6 oz pur e alcohol) Comments Unknown Sex and Gender Information Value Date Recorded Sex Assigned at Not on file Legal Sex Female 6:24 PM EDT Gender Identity Not on file Sexual Orientation Not on file documented as of this encounter Plan of Treatment Not on file documented as of this encounter Procedures Procedure Name Priority Date/Time Associated Diagnosis Comments US OUTSIDE IMAGES 10/11/2022 1:36 PM EDT documented in this encounter Results * US OUTSIDE IMAGES (10/11/2022 1:36 PM EDT) Anatomical Region Laterality Modality Ultrasound 10/11/2022 1:36 PM EDT us External Provider IMG US PROCEDURES Final Result documented in this encounter Visit Diagnoses Not on filedocumented in this encounter Care Teams Residential Collections Relationship Specialty Start Date End Date Yonatan Graves DO [facility] [address] [place] [address] PCP - General 09/24/22 Adryan Bearden PA [address] [place] [address] Referring Physician Gastroenterology 09/24/22 documented as of this encounter
--- OUTSIDE RECORDS SUMMARY | 2024-05-11 18:32 | XMS_ITS | Encounter Summary ---
Author Organization [facility] Address [address] [place] [address] Care Team Providers Care Picture Painter Name Role Phone Jodie Gravesew Joseph LLANES Primary Care Provider Adryan Bearden Unavailable Reason for Visit * Reason Comments Appointment Confirmation and rem inders Encounter Details Date Type Department Care Team (Late st Contact Info) Description 10/30/2022 Telephone [facility] [address] [phone] Lani Maynard [facility] [address] [place] [phone] Appointment (Confirmation and reminders) Social History Tobacco Use Types Packs/Day Years [...] encounter Miscellaneous Notes * Telephone Encounter - Lani Maynard - 10/30/2022 9:39 AM EDT Called to confirm New Patient Pre-Liver Initial Clinic Evaluation scheduled for Friday11/01/2022 at 7am - spoke to Ms Wade, confirmed appointment. Provided reminders of appointment date/time; reminded to bring ID, insurance information, all medications or current medication list; reminded to bring all completed paperwork. Reminded to bring support person and to wear masks. Reminded that there is no fasting required for labs and to expect a long appointment. Encouraged Ms Mauro to call if she have additional questions or is unable to attend/ needs to reschedule. Called [facility] - requested US Liver images dated 10/11/2022 with report; requested EGD report dated 10/24/2022. documented in this encounter Plan of Treatment Not on file documented as of this encounter Visit Diagnoses Not on filedocumented in this encounter Care Teams Picture Painter Relationship Specialty Start Date End Date Yonatan Graves DO [address] [place] [address] [address] [place] [address] PCP - General 09/24/22 Adryan Bearden PA [address] [place] [address] Referring Physician Gastroenterology 09/24/22 documented as of this encounter
--- OUTSIDE RECORDS SUMMARY | 2024-05-11 18:32 | XMS_ITS | Encounter Summary ---
Author Organization [facility] Address [address] [place] [address] Care Team Providers Care Windshield Repair Technician Name Role Phone Yonatan Graves DO Primary Care Provider Adryan Bearden Unavailable Encounter Details Date Type Department Care Team (Late st Contact Info) Description 12/16/2022 Refill [facility] [address] [facility] [address] [place] [address] Tresa Vieira, RN [id number] [address] [place] [phone] Social History Tobacco Use Types Packs/Day Years Used Date Smoking Tobacco: Former Cigarettes Q uit: 04/2021 Smokeless Tobacco: Never Alcohol Use Standard Drinks/Week Comments No 0 [...] for the patient 11/01/2022 7:33 AM EDT documented as of this encounter Care Teams Windshield Repair Technician Relationship Specialty Start Date End Date Yonatan Graves DO [address] [facility] [address] [place] [address] PCP - General 09/24/22 Adryan Bearden PA Pending sale to [facility]8 [place] [address] Referring Physician Gastroenterology 09/24/22 documented as of this encounter
--- OUTSIDE RECORDS SUMMARY | 2024-05-11 18:32 | XMS_ITS | Encounter Summary ---
Author Organization [facility] Address [address] [place] [address] Care Team Providers Care Track Machine Operator Repairer Name Role Phone Yonatan Graves DO Primary Care Provider Adryan Bearden Unavailable Encounter Details Date Type Department Care Team (Latest Contact Info) Description 05/22/2023 Travel Social History Tobacco Use Types Packs/Day Years Used Date Smoking Tobacco: Former Cigarettes Q uit: 05/14/2019 Passive Smoke Exposure: Past Smokeless Tobacco: Never Alcohol Use Standard Drinks/Week Comments Yes 3 (1 standard drink = 0.6 oz pur e alcohol) PHQ-2 Answer Date Recorded Patient Health Questionnaire-2 Score 1 05/22/2023 PHQ-9 Answer Date Recorded Patient Health Questionnaire-9 Score 13 11/01/2022 PHQ-2A Answer Date Recorded Patient Health Questionnaire-2 Score 1 05/22/2023 Comments Unknown Sex and Gender Information Value [...] has been complete d for the patient 05/22/2023 12:07 PM EST A Body Mass Index follow-up plan has been documented for the patient 05/27/2023 1:14 PM EST documented as of this encounter Care Teams Track Machine Operator Repairer Relationship Specialty Start Date End Date Yonatan Graves DO [facility]8 [facility] [address] [place] [address] PCP - General 09/24/22 Adryan Bearden PA [facility]8 [place] [address] Referring Physician Gastroenterology 09/24/22 documented as of this encounter
--- OUTSIDE RECORDS SUMMARY | 2024-05-11 18:32 | XMS_ITS | Encounter Summary ---
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) Rashard Landin MD [address] [facility] [address] [place] [address] Phone: tel: fax: [facility] [address] [facility] [address] [place] [phone] Phone: tel: fax: Referral ID Status Reason Start Date Expiration Date V isits Requested Visits Authorized [id number] Closed Specialty Services Required 11/05/2022 05/06/2024 1 1 Encounter Details Date Type Department Care Team (Late st Contact Info) Description 12/27/2022 12:00 PM EDT Social Work [facility] [address] [facility] [address] [place] [phone] Brooke Tam [facility] [address] [phone] End-stage liver disease (CMS/HCC); 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 She is being evaluated for a liver transplant. Primary language: Uzbek Yazdanism/spirituality: Yazidi Do you have any hoahaoism, ethical or personal objections to accepting blood products, surgery and/or transplant? No Citizenship Where were you born? [place] Family Background and Supportive Relationships Parental information: Kee Llanes (dad) - in [facility] - good relationship with him; mom, Art Hernández, in [place] - better relationship with dad. Sibling information: 2 brother, 2 sister; 2 in [facility] and 2 in [place]; good relationship with all Children: 3, 2 boys (12 and 7), 1 daughter, 11 Marital/relationship status: , [place] Wade, Household composition: HH5, Support / Caregiver Plans Who will be your primary caregiver? 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 Who will be your secondary caregiver(s)? Dad is no longer working and would likely be backup caregiver. Does anyone in your household or caregiving team use tobacco, or abuse alcohol or illicit substances? smokes outside; reports he drinks socially on weekends. Patient has 3 children, 11,12 and 7 however, reports family is near by in [place], grandparents, aunts, uncles, cousins and 2 siblings. She has also had offers of support from family in [facility]. would be primary caregiver, however, anticipate additional family to step in. Advance Directives Do you have an advance directive? Not Received Do you have a DPOA for healthcare or finances? no A living will? no Who is the proxy? Home Environment Living situation: Private Home Rent or Own? Renting now, want to build, not started yet. Utilities: water source: [facility] water , Electricity: yes, Type of Heat: electric Number of steps to enter home: 8 steps in garage; Are bed and bath are on the same level? yes, 2 steps, but can avoid steps if needed Local Housing Is local housing required? No, lives in [place], [place] 32 miles away, about an hour. Insurance benefit for local housing? Education / Employment / Financial Situation What is your highest level of education? Some college Are you able to read and write? 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 Disability Are you on any form of disability? Short term disability thru work Do you have short term or bed bug exterminator disability available thru work? 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 Short term disability ($1400); [place] - income - $4K/month - - $64,800annual Is current income adequate to meet monthly needs and current medications? yes How do you manage when you do not have enough money during the month? Able to pay bills Will your caregiver being off work have an effect on your income? Possible; have some in savings - using it some. Patient anticipates needing to pay OOP for health insurance should she lose her Medicaid as she anticipates. Anticipate father will be able to help financially, however, have not discussed with him. Insurance / Resources Payer/Plan Subscriber Name Rel Member # Group # [facility] MEDICAID - [facility] ME* TATIANA MARTINEZ Self [id number] [facility] [address] Anticipate medical card to ; hope to reapply - is making more money so may be over income; both patient and have ins available at work, but it's expensive; does not carry health insurance currently. Medication Coverage Indicate medication costs after transplant: minimal, with Medicaid How will you pay for these medications after transplant? Income/Medicaid [place] Benefits Have you served in the ? no Understanding of Medical Situation What is your primary diagnosis? Chronic HCV, alcohol related cirrhosis; concerned for AIH - says aditi in her family - dad had fatty liver; patient says the [place] said it was AIH When did you become aware of your diagnosis? September angelia = has always had kidney stones What do you understand about the cause of your disease? Just learning, unable to articulate and feels it is not related to alcohol use. What do you know about your disease process? Not much at this time. Do you have any other health issues? no, GB and kidney stones - since age 16 - had had several abdominal surgeries - history of stents, but no longer Treatment Compliance / Adherence How do you manage your medications now? Not taking much Do you have any difficulties in getting or taking your medications? no Have you ever changed the way you take a medication without talking to the doctor? - no Do you have a PCP or other medical provider you see regularly in the community? PCP - Riya Goodson - will call to make appointment to discuss anxiety and possible medication assistance. Knowledge & Understanding of Transplant Process Do you know anyone else that has had a transplant? yes, dad liver transplant; had over 8-9 years ago at Tell me a little about what you understand about transplant. Watched dad go through transplant and it is scary for her. What do you know about the risks of transplant? Not much What is your biggest concern? Being sick Were the psychosocial risks of transplant reviewed: yes Willingness / Desire for Treatment (Transplant) Do you want to proceed with a transplant? yes What are your expectations for transplant? Want to feel better How did you start thinking of transplant as a treatment choice? MD Functional Ability / Personal Care Functional Ability What physical changes/declines/improvements have you seen in the last six months? Independent with ADL's; cook/laundry Please describe your greatest physical limitation(s): Fatigue; lack of energy Hobbies / Interests What are your hobbies/interests (pasttimes and stress relievers)? Likes to cook; cookout - have family / social gatherings Do you have any activities that you???re unable to do now, that you hope to return to after transplant? yes, would like to work again, maybe in a less stressful job. Cognitive Function / Health Literacy How do you best learn new information? visual Do you have any history of developmental delays/learning differences/special education/OT/PT/speechtherapy? no Do you have any current or past problems with a medical issue (e.g. CVA, TBI, encephalopathy) that has impacted your cognitive function? no What is the family???s perception of patient???s cognitive function/dysfunction? none Mental Health IIndicate cognitive function: Attentive: yes Memory problems: no Thought Processes Organized? yes Do you have a history of: anxiety Has anyone ever physically, emotionally, or sexually abused you? no Have you ever attempted suicide or thought about harming yourself or others? no Have you ever been hospitalized in a psychiatric hospital? no Do you currently or have you ever seen a therapist/counselor/psychiatrist? Counselor; long time ago; was not helpful; Have you used medications for mental health issues, sleep and/or pain now or in the past? Generalized Anxiety Disorder Questionnaire CHATO-2 Over the last two weeks how often have you been bothered by the following problems? 1. Feeling nervous, anxious or on edge. 3 - Nearly every day 2. Not being able to stop or control worrying. 3 - Nearly every day Patient Health Questionnaire (PHQ 2) -Depression Scale During the past month, have you often been bothered by the following problems? Feeling down, depressed or hopeless? 0 - Not at all Little interest or pleasure in doing things? 0 - Not at all Total score: Add responses to both questions : 6 Coping What are the other stressors in your life? Health, work, financial; employer not leaving her alone What helps you cope when you are feeling stressed? Like to be outside; go to grandparents. Patient reports she is very reserved and quite and is not a talker . presents as protective and describes himself as an aggressive talker . Substance Abuse Tobacco Social History Tobacco Use Smoking Status Former Types: Cigarettes Quit date: 04/2021 Years since quittin.6 Smokeless Tobacco Never Alcohol: per patient report drinks 4-5 glasses of wine weekly, although had difficulty quantifying amount; reports she had one drink December 24; peth 11/01/22 was 1162/629. Peth 12/27/22 was higher, 1299/755, suggesting discrepancy in reported alcohol use and lab supported use. Social History Substance and Sexual Activity Alcohol Use No Illicit Substances: history of IVDU (heroin) last use 2016 Social History Substance and Sexual Activity Drug Use Never Comment: Drug use: No drug use Substance Abuse & Treatment History What is your family history with alcohol and drug use? Did suboxone clinic years ago - have been off for several years ago; helped her get off drugs and maintain clean living What (if any) consequences has your use (tobacco/drugs/alcohol) had on your life (e.g., interpersonal, family, work, health, financial, legal, etc.)? Health, financial/change in income; Legal Issues Are you currently or have you ever been on probation or parole? no Do you have or have you ever had any warrants out for your arrest? yes, stealing; 7-8 years ago Have you had any substance-related legal problems? 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 yes Impression Low Risk -1;Moderate Risk -2;High Risk -3;Absolute contraindication -4 Social Support: 2 Identified Strengths / Risks: Patient and present for SW evaluation. 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 Patient is very reserved and reports she is not a talker . Patient reports family support near by to help with children should she need transplant. is a social drinker and wants to continue to do so, as social/ family gatherings with food and alcohol are a big part of their lives. Financial / Insurance: 2 Identified Strengths / Risks: patient has had to stop working and reports only getting about 1/3 ofher check on short term disability, as she also worked on commission. It has impacted their financial situation. Patient currently with [facility] Medicaid, but believes she may lose that soon as isnow making more and anticipate being over resources. and patient both have insurance available at work, but report it is too costly. Need confirmed insurance plan should patient lose Medicaid, which she believes will happen. Compliance: 3 Identified Strengths / Risks: patient has continued to drink after being told to stop and Peth increased from October to December, both of which were done in transplant clinic, most recent is 1299/755, ups from 1162/629. reports we are in our 30's - we are going to drink . Patient needs to demonstrate improved compliance with sobriety. Functional Status: 1 Identified Strengths / Risks: patient is independent with ADL's, but reports increased fatigue. Cognitive Function1 Identified Strengths / Risks: no significant cognitive deficits Mental Health3 Identified Strengths / Risks: patient with unmanaged anxiety and SW recommended she reach out to PCP for help. Patient needs mental health counseling, however, is resistant to this currently, indicating she is not a talker . Coping Skills2 Identified Strengths / Risks: patient reports she will spend time with her grandparents next door and likes to stay busy. Substance Use3 Identified Strengths / Risks: Patient struggled to quantify amount of alcohol she has had, but Pethreflects an increase in use from 11/01/22 to 12/27/22 suggesting discrepancy between reported alcohol use and lab supported use. Patient with a hx of IVDU, last use, heroin, 2017. Patient needs alcohol rehab, however, does not currently believe she has a problem with alcohol, nor does her support system. Legal Issues1 Identified Strengths / Risks: no current legal charges Understanding of Transplant Process2 Identified Strengths / Risks: patient with minimal insight into disease process, does not believe alcohol is cause for liver disease. Motivation for Transplant2 Identified Strengths / Risks: patient reports she wants to feel better, but needs to demonstrate sobriety from alcohol and motivation to change behaviors. PLAN: SW provided contact information to patient. SW to follow patient throughout transplant process. SW to see patient on follow up should she return to txp clinic. Follow up on insurance changes RECOMMENDATION: Not socially cleared for evaluation. Patient needs to demonstrate commitment to sobriety, with negative PETH and alcohol rehab participation and improved insight into disease prior to evaluation. Anticipate patients insurance and financial situation will be changing as well with anticipated loss of Medicaid. 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) documented in this encounter Additional Health Concerns Assessment Noted Time PHQ-9 Depression Total Score: 13 023 7:33 AM EDT A fall risk assessment has been complete d for the patient 11/01/2022 7:33 AM EDT A Body Mass Index follow-up plan has been documented for the patient 12/29/2022 9:05 PM EDT documented as of this encounter Care Teams Speech Communication Instructor Relationship Specialty Start Date End Date Yonatan Graves DO [address] [place] [address] [address] [place] [phone] PCP - General 09/24/22 Adryan Bearden PA [address] [place], [place] [id number] Referring Physician Gastroenterology 09/24/22 documented as of this encounter
--- OUTSIDE RECORDS SUMMARY | 2024-05-11 18:32 | XMS_ITS | Encounter Summary ---
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) Procedures MR Abdomen w and wo IV Contrast Rashard Landin MD [address] [address] Phone: tel: fax: Referral ID Status Reason Start Date Expiration Date Visits Re quested Visits Authorized [id number] Closed 11/05/2022 05/06/2024 1 1 Reason for Visit * Imaging (Routine) - Closed Specialty Diagnoses / Procedures Referred By Contphyllis t Referred To Contact Radiology Diagnoses End-stage liver disease (CMS/HCC) 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 * Contrast Imaging Discharge Instructions (UK) (Italian) documented in this encounter Medications at Time of Discharge Multiple Vitamin (multivitamin) tablet Take 1 tablet by mouth 1 (one) time each day. 12/27/2022 ondansetron (Zofran) 4 MG tablet Take 1 tablet (4 mg) by mouth every 12 (twelve) hours if needed for nausea or vomiting. 60 tablet 12/27/2022 01/26/2023 furosemide (Lasix) 20 MG tablet Take 1 tablet (20 mg) by mouth 1 (one) time each day. 09/12/2022 05/22/2023 hydrOXYzine HCl (Atarax) 10 MG tablet Take 1 tablet (10 mg) by mouth at night if needed for anxiety. 30 tablet 2 12/27/2022 05/09/2023 spironolactone (Aldactone) 50 MG tablet Take 2 tablets (100 mg) by mouth 1 (one) time each day. 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 Portal hypertension as evidenced by portosystemic collateral vessels and ascites. Normal size spleen. Circumferential gallbladder wall thickening likely reflects sequelae of underlying hepatocellular parenchymal disease. CRITICAL RESULT: No. COMMUNICATION: Per this written report. Preliminary report signed by Iza Grace MD on 12/27/2022 3:56 PM LI-RADS M = Probably or definitely malignant [...] are consistent with and integrated into the [place] [employer] for the Study of Liver Diseases [...] with the final edited report. Drafted by Iza Grace MD on 12/27/2022 3:15 PM Final report signed by Johnny Ramirez MD on 12/27/2022 4:17 PM Narrative 12/27/2022 4:17 PM EDT CLINICAL INDICATION: Hepatocellular carcinoma screening TECHNIQUE: MR imaging of the abdomen was performed with and without intravenous contrast material using the following sequences: coronal single shot T2 weighted fast spin echo, axial T2 weighted sequences with and without fat saturation, axial dual phase gradient echo, pre and dynamic postcontrast 3-D T1 weighted gradient echo with fat saturation (axial and coronal), and axial diffusion. 7.5 mL of Gadavist was administered. COMPARISON: Abdominopelvic CT without IV contrast dated September 01, 2022. FINDINGS: Liver: Cirrhotic liver morphology. No hepatic steatosis or iron deposition. There are at least 2 hypointense nonenhancing lesions localized identified at hepatic segment 2. Observation 1: Most inferior lesion measures approximately 1 cm and demonstrates capsule appearance, without evidence of hyperenhancement or washout; LI-RADS 3. Observation 2: More superior lesion measures approximately 6 ??mm and demonstrates no hyperenhancement or washout; LI-RADS 3. Gallbladder and biliary tree: There is gallbladder wall thickening/edema, likely secondary to hypoproteinemic state in this patient with known history of hepatocellular disease.. No biliary duct dilatation is noted. Pancreas: Unremarkable. Spleen: The spleen is normal in size. Adrenal Glands: Unremarkable. Kidneys: Unremarkable. GI: There is visualization of bowel wall thickening/edema of multiple bowel segments, anterior of portal hypertensive enteropathy/colonopathy. Nonobstructive bowel pattern is observed. Vasculature: Portosystemic collateral vasculature resize such as recanalization of the paraumbilical vein and small paraesophageal varices. The portal vein is patent and measures 1.6 cm in largest diameter. Lymph Nodes: No lymphadenopathy is noted. Fluid Survey: Small amount of surrounding perihepatic ascites is seen. Musculoskeletal: No aggressive marrow signal abnormalities.. Procedure Note Johnny Rmairez MD - 12/27/2022 CLINICAL INDICATION: Hepatocellular carcinoma screening TECHNIQUE: MR imaging of the abdomen was performed with and without intravenouscontrast material using the following sequences: coronal single shot [id number] fast spin echo, axial T2 weighted sequences with and without fatsaturation, axial dual phase gradient echo, pre and dynamic postcontrast3-D T1 weighted gradient echo with fat saturation (axial and coronal), andaxial diffusion. 7.5 mL of Gadavist was administered. COMPARISON: Abdominopelvic CT without IV contrast dated September 01, 2022. FINDINGS: Liver: Cirrhotic liver morphology. No hepatic steatosis or iron deposition. There are at least 2 hypointense nonenhancing lesions localized identifiedat hepatic segment 2. Observation 1: Most inferior lesion measures approximately 1 cm anddemonstrates capsule appearance, without evidence of hyperenhancement orwashout; LI-RADS 3. Observation 2: More superior lesion measures approximately 6 mm anddemonstrates no hyperenhancement or washout; LI-RADS 3. Gallbladder and biliary tree: There is gallbladder wall thickening/edema,likely secondary to hypoproteinemic state in this patient with knownhistory of hepatocellular disease.. No biliary duct dilatation is noted. Pancreas: Unremarkable. Spleen: The spleen is normal in size. Adrenal Glands: Unremarkable. Kidneys: Unremarkable. GI: There is visualization of bowel wall thickening/edema of multiplebowel segments, anterior of portal hypertensive enteropathy/colonopathy.Nonobstructive bowel pattern is observed. Vasculature: Portosystemic collateral vasculature resize such asrecanalization of the paraumbilical vein and small paraesophageal varices.The portal vein is patent and measures 1.6 cm in largest diameter. Lymph Nodes: No lymphadenopathy is noted. Fluid Survey: Small amount of surrounding perihepatic ascites is seen. Musculoskeletal: No aggressive marrow signal abnormalities.. IMPRESSION: Focal hepatic observations: Observation 1: LI RADS 3 Observation 2: LI-RADS 3 Cirrhosis. Portal hypertension as evidenced by portosystemic collateral vessels andascites. Normal size spleen. Circumferential gallbladder wall thickening likely reflects sequelae ofunderlying hepatocellular parenchymal disease. CRITICAL RESULT: No. COMMUNICATION: Per this written report. Preliminary report signed by Iza Grace MD on 12/27/2022 3:56PM LI-RADS M = Probably or definitely malignant [...] are consistent with and integrated into the [place] Associationfor the Study of Liver Diseases (AASLD) [...] signing this report, I, the attending physician, attestthat I have personally reviewed the images/data for the aboveexamination(s) and agree with the final edited report. 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 68.8 kg), Intravenous, Once in imaging, 1 dose, Starting on Fri12/27/22 at 1348, Until Fri12/27/22 at 1447, Routine, Imaging Protocol Orders Given 12/27/2022 2:47 PM EDT 6.9 mmol documented in this encounter Additional Health Concerns Assessment Noted Time PHQ-9 Depression Total Score: 13 023 7:33 AM EDT A fall risk assessment has been complete d for the patient 11/01/2022 7:33 AM EDT A Body Mass Index follow-up plan has been documented for the patient 12/29/2022 9:05 PM EDT documented as of this encounter Care Teams Container Repairer Relationship Specialty Start Date End Date Yonatan Graves DO [facility] [address] [place], [place] [id number] PCP - General 09/24/22 Adryan Bearden PA [address] [place], [place] [phone] Referring Physician Gastroenterology 09/24/22 documented as of this encounter
--- OUTSIDE RECORDS SUMMARY | 2024-05-11 18:32 | XMS_ITS | Encounter Summary ---
Author Organization [facility] Address [address] [id number] Care Team Providers Care Chiller Hand Name Role Phone Jodie Gravesew Joseph LLANES Primary Care Provider Adryan Bearden Unavailable Reason for Referral * Imaging (Routine) - Authorized Specialty Diagnoses / Procedures Referred By Contac t Referred To Contact Radiology Diagnoses Alcoholic cirrhosis of liver with ascites (CMS/HCC) Liver lesion Procedures MR Abdomen w and wo IV Contrast Farida Ortega, OVAL OR CIRCULAR GLASS CUTTER [address] [facility] [address] [place] [address] Phone: tel: fax: Referral ID Status Reason Start Date Expiration Date V isits Requested Visits Authorized [id number] Authorized 04/10/2023 10/09/2024 1 2 Reason for Visit * Reason Comments End-Stage Liver Disease Encounter Details Date Type Department Care Team (Late st Contact Info) Description 04/10/2023 12:20 PM EDT Office Visit [place] [facility] [address] [place] [address] Farida Ortega, OVAL OR CIRCULAR GLASS CUTTER [address] [place] [phone] 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) (Primary Dx); Alcoholic cirrhosis of liver with ascites (CMS/HCC); Liver lesion; Hyperbilirubinemia Social History Tobacco Use Types Packs/Day Years [...] - Inhaled Oxygen Concentration - - Weight 63.5 kg (140 lb) 04/10/2023 12:05 PM EDT Height 165.1 cm (5' 5 ) 04/10/2023 12:05 PM EDT Body Mass Index 23.3 04/10/2023 12:05 PM EDT documented in this encounter Miscellaneous Notes * Addendum Note - Pao Salmeron RN - 04/10/2023 12:20 PM EDTAddended by: PAO SALMERON on: 04/24/2023 11:38 AM Modules accepted: Orders * Addendum Note - Ana Rosa Joaquin - 04/10/2023 12:20 PM EDTAddended by: ANA ROSA JOAQUIN on: 04/27/2023 02:35 PM Modules accepted: Orders * Progress Notes - Farida Ortega APRN - 04/10/2023 12:20 PM EDT Transplant [facility]ology [facility]. Subjective Patient ID: [...] last time was in 2017. She was initially evaluated in liver Transplant clinic, transplant was deferred as her PeTH stay positive.She said last alcohol 03/2023 ( couple of wine coolers ) She said she had covid 02/2023. Has not done repeat labs which was ordered on last visit Since last visit she saw Dr. Guajardo. Willing to continue to follow Dr. Guajardo, Denies recent admission. C.o nausea. Asking for refill on zofran. Decrease appetite. C/o diarrhea. Denies hematemesis, , melena, denies confusion. She is on diuretics.Lasix 20 mg and spirolactone 100 mg She is taking multivitamin, CBD gummies. . She denied history of GI bleed, encephalopathy or LVP. She said she also need help with anxiety. Continue to have abdomen pain, has nausea and no emesis. She never has LVP. She feels slight distention. She c/o abdomen pain and blames on her GB. Denies current confusion, forgetfulness, hematemesis, coffee ground [...] Ht 1.651 m (5' 5 ) Wt 63.5 kg (140 lb) BMI 23.30 kg/m?? Smoking Status Former BSA 1.71 m?? Physical Exam Constitutional: General: She is not in acute distress. Appearance: Normal appearance. She is not toxic-appearing. Eyes: General: Scleral icterus present. Cardiovascular: Rate and Rhythm: Normal rate and regular rhythm. Musculoskeletal: Right lower leg: No edema. Left lower leg: No edema. Skin: Coloration: Skin is jaundiced. Neurological: Mental Status: She is alert and oriented to person, place, and time. Psychiatric: Mood and Affect: Mood normal. Behavior: Behavior normal. Assessment/Plan Mindy was seen today for end-stage liver disease. 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 MELD 3.0: 22 at 12/27/2022 9:52 AM [...] 20 Patient did not go to labs on last visit. Reports she will go locally Active alcohol use, urine alcohol was positive [...] negative , HIV negative Alcohol Use disorder. Saw Dr. Guajardo, willing to follow. Needs follow up. Will ask clinic staff for appt. RUQ pain : She was seen by local surgeon MR Abdomen 04/08/2023 : reviewed stable Lirads 3 lesion, Gallbladder is notable for multiple subcentimeter stones layering in the dependent portion near the neck.I clarified with Dr. Lee , reportsThere is no evidence of biliary obstruction. No choledocholithiasis. Discussed case with [facility] team. No intervention needed if no evidence of obstruction. Report to ER if fever, worsening abdominal pain, worsening jaundice. Ascites. Controlled now. Never LVP, but did report abdominal swelling before starting diuretics. Prior imaging showed ascites. On Lasix 20mg daily & Aldactone 100mg daily. C/o increase abdomen distention though not distended to the point she would need LVP. Continue current regimen. Enforced 2 gram sodium diet. Esophageal varices surveillance: No prior GIB. EGD 10/2022: no EV or GV. Mild to moderate PHG Educated about signs and symptoms of variceal bleed, advised to report to ER should they occur Liver lesion HCC surveillance: CTAP w/o 09/12: [...] no evidence of biliary obstruction. No choledocholithiasis. Repeat MRI in 3 months. Will check CMP to assess T bili and liver function. # Anxiety : Hydroxyzine 10 mg at night. # Nausea/Vomiting : Zofran as needed. Health maintenance: Immune to hep A, needs Hepatitis B - declined. HCV PCR not detected. Follow up in about 6 weeks (around 05/22/2023). I spent a total of 22 minutes on the day of the visit. Patient Verification Patient identity has been confirmed using name and date of ? Yes Authorizations and Agreements/Telemedicine Consent sent and consent confirmed? Yes Patient Location: Patient's Home Patient confirms they are physically located in [place]? Yes If the patient is not physically located in [place], the provider has confirmed with Legal thatthe provider is authorized to provide services in patient's stated location? N/A Provider Location: Provider's Home Audio and video or audio only? Audio and video documented in this encounter Plan of Treatment Not on file documented as of this encounter Results * MR Abdomen w [...] are consistent with and integrated into the [employer] [place] Association for the Study of Liver Diseases [...] using the following sequences: coronal single shot [id number] fast spin echo, axial T2 weighted sequences [...] are consistent with and integrated into the [employer] [place] Associationfor the Study of Liver Diseases (AASLD) [...] signing this report, I, the attending physician, attraethat I have personally reviewed the images/data for the aboveexamination(s) and agree with the final edited report. Drafted by Maurice Sutherland MD on 08/18/2023 1:56 PM Final report signed by Tanner Panchal MD on 08/18/2023 3:18 PM us Farida D Shannon OVAL OR CIRCULAR GLASS CUTTER IMG MRI PROCEDURES Edited Result - Final * Comprehensive Metabolic Panel, Plasma (04/24/2023 11:39 AM EDT) Blood Venous blood specimen / Unknown us Farida D Shannon OVAL OR CIRCULAR GLASS CUTTER LAB BLOOD ORDERABLES Final Result Performing Organization Address City/[facility] Co de Phone Number EXTERNAL LAB * CBC W/O Differential (04/24/2023 11:39 AM EDT) Blood Venous blood specimen / Unknown us Farida D Shannon OVAL OR CIRCULAR GLASS CUTTER LAB BLOOD ORDERABLES Final Result Performing Organization Address City/[facility]/ZIP Co de Phone Number EXTERNAL LAB * Alpha Fetoprotein, Serum (04/24/2023) Blood Venous blood specimen / Unknown us Farida D Shannon OVAL OR CIRCULAR GLASS CUTTER LAB BLOOD ORDERABLES Final Result Performing Organization Address City/[facility]/ZIP Co de Phone Number EXTERNAL LAB * Prothrombin Time/INR (04/24/2023) Blood Venous blood specimen / Unknown us Farida Ortega OVAL OR CIRCULAR GLASS CUTTER LAB BLOOD ORDERABLES Final Result EXTERNAL LAB documented in this encounter Visit Diagnoses Diagnosis 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
--- OUTSIDE RECORDS SUMMARY | 2024-05-11 18:32 | XMS_ITS | Encounter Summary ---
Author Organization [facility] Address [address] [phone] Care Team Providers Care Emery Wheel Molder Name Role Phone Yonatan Graves DO Primary Care Provider Adryan Bearden Unavailable Reason for Visit * Reason Comments Med Refill Encounter Details Date Type Department Care Team (Late st Contact Info) Description 05/09/2023 Refill [facility] [address] [facility] [address] [place] [address] Farida Ortega D, PORTFOLIO SPECIALIST [address] [facility] [address] [place] [address] Social History Tobacco Use Types [...] Noted Time PHQ-9 Depression Total Score: 13 05/12/2 023 7:33 AM EDT A fall risk assessment has been complete d for the patient 04/10/2023 12:11 PM EDT A Body Mass Index follow-up plan has been documented for the patient 12/29/2022 9:05 PM EDT documented as of this encounter Care Teams Emery Wheel Molder Relationship Specialty Start Date End Date Yonatan Graves DO [address] [place] [address] [place], [place] [phone] PCP - General 09/24/22 Adryan Bearden PA [address] [place] [address] Referring Physician Gastroenterology 09/24/22 documented as of this encounter
--- OUTSIDE RECORDS SUMMARY | 2024-05-11 18:32 | XMS_ITS | Encounter Summary ---
Author Organization [facility] Address [address] [place] [address] Care Team Providers Care Pari Mutual Ticket Checker Name Role Phone Yonatan Graves DO Primary Care Provider Adryan Bearden Unavailable Encounter Details Date Type Department Care Team (Latest Contact Info) Description 07/02/2023 Travel Social History Tobacco Use Types Packs/Day Years Used Date Smoking Tobacco: Former Cigarettes Q uit: 05/14/2019 Passive Smoke Exposure: Past Smokeless Tobacco: Never Alcohol Use Standard Drinks/Week Comments Yes 3 (1 standard drink = 0.6 oz pur e alcohol) PHQ-2 Answer Date Recorded Patient Health Questionnaire-2 Score 0 07/03/2023 PHQ-9 Answer Date Recorded Patient Health Questionnaire-9 [...] has been complete d for the patient 05/29/2023 10:53 AM EST A Body Mass Index follow-up plan has been documented for the patient 06/08/2023 5:56 PM EST documented as of this encounter Care Teams Pari Mutual Ticket Checker Relationship Specialty Start Date End Date Yonatan Graves DO [facility]8 [facility] [address] [place] [address] PCP - General 09/24/22 Adryan Bearden PA [facility]8 [place] [address] Referring Physician Gastroenterology 09/24/22 documented as of this encounter
--- OUTSIDE RECORDS SUMMARY | 2024-05-11 18:32 | XMS_ITS | Encounter Summary ---
Author Organization [facility] Address [address] [place] [address] Care Team Providers Care Practice Physician Name Role Phone Yonatan Graves DO Primary Care Provider Adryan Bearden Unavailable Encounter Details Date Type Department Care Team (Late st Contact Info) Description 10/03/2022 Telephone [facility] [address] [facility] [address] [place] [phone] Lani Maynard [facility] [address] [phone] Social History Tobacco Use Types Packs/Day Years [...] * Telephone Encounter - Lani Maynard - 10/03/2022 3:02 PM EDT Called to follow up on MyChart activation - spoke to Ms Wade - new patient materials will be attached once activated. documented in this encounter Plan of Treatment Not on file documented as of this encounter Visit Diagnoses Not on filedocumented in this encounter Care Teams Practice Physician Relationship Specialty Start Date End Date Yonatan Graves DO [facility]8 [facility] [address] [place] [address] PCP - General 09/24/22 Adryan Bearden PA [facility]8 [place] [address] Referring Physician Gastroenterology 09/24/22 documented as of this encounter
--- OUTSIDE RECORDS SUMMARY | 2024-05-11 18:32 | XMS_ITS | Encounter Summary ---
Author Organization [facility] Address [address] [place] [address] Care Team Providers Care Equipment Installation Professional Name Role Phone Yonatan Graves DO Primary Care Provider Adryan Bearden Unavailable Encounter Details Date Type Department Care Team (Latest Contact Info) Description 02/19/2023 Travel Social History Tobacco Use Types Packs/Day [...] documented as of this encounter Care Teams Equipment Installation Professional Relationship Specialty Start Date End Date Yonatan Graves DO [facility]8 [facility] [address] [place] [address] PCP - General 09/24/22 Adryan Bearden PA [facility]8 [place] [address] Referring Physician Gastroenterology 09/24/22 documented as of this encounter
--- OUTSIDE RECORDS SUMMARY | 2024-05-11 18:32 | XMS_ITS | Encounter Summary ---
Author Organization [facility] Address [address] [id number] Care Team Providers Care Theatrical Performer Name Role Phone Jodie Gravesew Joseph LLANES Primary Care Provider Adryan Bearden Unavailable Reason for Visit * Reason Comments New Patient End-Stage Liver Disease * Consultation (Routine) - Closed Specialty Diagnoses / Procedures Referred By Roselyn t Referred To Contact Addiction Medicine Diagnoses End-stage liver disease (CMS/HCC) Liver lesion Farida Ortega, SENIOR IT ARCHITECT [address] [place] [address] Phone: tel: fax: Referral ID Status Reason Start Date Expiration Date V isits Requested Visits Authorized [id number] Closed Specialty Services Required 02/19/2023 08/20/2024 1 1 Encounter Details Date Type Department Care Team (Late st Contact Info) Description 04/03/2023 1:00 PM EDT Consult [facility] [address] [place] [address] Kierra Guajardo MD [address] [facility] [address] [place] [address] Alcohol use (Primary Dx); End-stage liver disease (CMS/HCC); Liver lesion; Generalized anxiety disorder Social History Tobacco Use Types Packs/Day Years Used Date Smoking Tobacco: Former Cigarettes Q uit: 05/14/2019 Passive Smoke Exposure: Past Smokeless Tobacco: Never Tobacco Cessation:Counseling Given: Not Answered Alcohol Use Standard Drinks/Week Comments Yes 0 [...] Sign Reading Time Taken Comments Blood Pressure 111/73 04/03/2023 1:27 PM EDT Pulse 103 04/03/2023 1:27 PM EDT Temperature 36.3 ??C (97.4 ??F) 04/03/2023 1:27 PM ED T Respiratory Rate - - Oxygen Saturation 99% 04/03/2023 1:27 PM EDT Inhaled Oxygen Concentration - - Weight 66.4 kg (146 lb 6.2 oz) 04/03/2023 1:27 P M EDT Height 165.1 cm (5' 5 ) 04/03/2023 1:27 PM EDT Body Mass Index 24.36 04/03/2023 1:27 PM EDT documented in this encounter Plan of Treatment Not on file documented as of this encounter Visit Diagnoses Diagnosis Alcohol use- Primary Other problems related to lifestyle End-stage liver disease (CMS/HCC) Other sequelae of chronic liver disease Liver lesion Other specified disorders of liver Generalized anxiety disorder documented in this encounter Additional Health Concerns Assessment Noted Time PHQ-9 Depression Total Score: 13 023 7:33 AM EDT A fall risk assessment has been complete d for the patient 04/03/2023 1:25 PM EDT A Body Mass Index follow-up plan has been documented for the patient 12/29/2022 9:05 PM EDT documented as of this encounter Care Teams Theatrical Performer Relationship Specialty Start Date End Date Yonatan Graves DO [address] [facility] [address] [place] [address] PCP - General 09/24/22 Adryan Bearden PA [facility]8 [place] [address] Referring Physician Gastroenterology 09/24/22 documented as of this encounter
--- OUTSIDE RECORDS SUMMARY | 2024-05-11 18:32 | XMS_ITS | Encounter Summary ---
Author Organization [facility] Address [address] [id number] Care Team Providers Care Public Area Attendant Name Role Phone Yonatan Graves Joseph LLANES Primary Care Provider Adryan Bearden Unavailable Reason for Visit * Reason Comments Follow-up Alcohol Problem Encounter Details Date Type Department Care Team (Late st Contact Info) Description 05/22/2023 10:00 AM EST Office Visit [place] [facility] [address] [place] [address] Kierra Guajardo MD 245 [facility] [address] [place] [address] Alcohol use disorder (Primary Dx); Generalized anxiety disorder Social History Tobacco Use Types Packs/Day Years Used Date Smoking Tobacco: Former Cigarettes Q uit: 05/14/2019 Passive Smoke Exposure: Past Smokeless Tobacco: Never Tobacco Cessation:Counseling Given: Not Answered Alcohol Use Standard Drinks/Week Comments Yes 3 (1 standard drink = 0.6 oz pur e alcohol) PHQ-2 Answer Date Recorded Patient Health Questionnaire-2 Score 0 05/29/2023 PHQ-9 Answer Date Recorded Patient Health Questionnaire-9 [...] - - Weight 63.5 kg (140 lb) 05/22/2023 9:51 AM EST Height 165.1 cm (5' 5 ) 05/22/2023 9:51 AM EST Body Mass Index 23.3 05/22/2023 9:51 AM EST documented in this encounter Plan of Treatment Not on file documented as of this encounter Visit Diagnoses Diagnosis Alcohol use disorder- Primary Generalized anxiety disorder documented in this encounter Additional Health Concerns Assessment Noted Time PHQ-9 Depression Total Score: 13 023 7:33 AM EDT A fall risk assessment has been complete d for the patient 05/22/2023 12:07 PM EST A Body Mass Index follow-up plan has been documented for the patient 05/27/2023 1:14 PM EST documented as of this encounter Care Teams Public Area Attendant Relationship Specialty Start Date End Date Yonatan Graves DO [address] [place] [address] [address] [id number] PCP - General 09/24/22 Adryan Bearden PA [address] [place] [address] Referring Physician Gastroenterology 09/24/22 documented as of this encounter
--- OUTSIDE RECORDS SUMMARY | 2024-05-11 18:32 | XMS_ITS | Encounter Summary ---
Author Organization [facility] Address [address] [id number] Care Team Providers Care Enthone Solder Stripper Name Role Phone Yonatan Graves DO Primary Care Provider Adryan Bearden Unavailable Reason for Visit * Reason Comments Med Refill Encounter Details Date Type Department Care Team (Late st Contact Info) Description 05/08/2023 Refill [facility] [address] [facility] [address] [place] [address] Farida Ortega D, ONCOLOGY PHYSICIAN [address] [facility] [address] [place] [address] Social History Tobacco Use Types [...] documented as of this encounter Care Teams Enthone Solder Stripper Relationship Specialty Start Date End Date Yonatan Graves DO [address] [place] [address] [place], [place] [id number] PCP - General 09/24/22 Adryan Bearden PA [address] [place] [address] Referring Physician Gastroenterology 09/24/22 documented as of this encounter
--- OUTSIDE RECORDS SUMMARY | 2024-05-11 18:32 | XMS_ITS | Encounter Summary ---
Author Organization [facility] Address [address] [place] [address] Care Team Providers Care Veneer Matcher Name Role Phone Yonatan Graves DO Primary Care Provider Adryan Bearden Unavailable Encounter Details Date Type Department Care Team (Late st Contact Info) Description 04/27/2023 Orders Only [facility] Medicine Specialties [address] [place] [address] Ana Rosa Hadley [facility] [address] [place] [address] Alcoholic cirrhosis of liver with ascites (CMS/HCC) [...] Procedure Name Priority Date/Time Associated Diagnosis Comments ALPHA FETOPROTEIN, SERUM Routine 04/24/2023 Alcoholic cirrhosis of liver with ascites (CMS/HCC) documented in this encounter Results * Alpha Fetoprotein, Serum (04/24/2023) Blood Venous blood specimen / Unknown us Farida Jeremy SheikhShannon [facility] BLOOD ORDERABLES Final Result EXTERNAL LAB [...] documented as of this encounter Care Teams Veneer Matcher Relationship Specialty Start Date End Date Yonatan Graves DO [address] [place] [address] [address] [place] [address] PCP - General 09/24/22 Adryan Bearden PA [address] [place] [address] Referring Physician Gastroenterology 09/24/22 documented as of this encounter
--- OUTSIDE RECORDS SUMMARY | 2024-05-11 18:32 | XMS_ITS | Encounter Summary ---
Author Organization [facility] Address [address] [place] [address] Care Team Providers Care Code Clerk Name Role Phone Yonatan Graves DO Primary Care Provider Adryan Bearden Unavailable Encounter Details Date Type Department Care Team (Latest Contact Info) Description 08/14/2023 Travel Social History Tobacco Use Types Packs/Day Years Used Date Smoking Tobacco: Former Cigarettes Q uit: 05/14/2019 Passive Smoke Exposure: Past Smokeless Tobacco: Never Alcohol Use Standard Drinks/Week Comments Yes 3 (1 standard drink = 0.6 oz pur e alcohol) PHQ-2 Answer Date Recorded Patient Health Questionnaire-2 Score 2 08/15/2023 PHQ-9 Answer Date Recorded Patient Health Questionnaire-9 Score 8 08/15/2023 PHQ-2A Answer Date Recorded Patient Health Questionnaire-2 [...] documented as of this encounter Care Teams Code Clerk Relationship Specialty Start Date End Date Yonatan Graves DO [address] [facility] [address] [place] [address] PCP - General 09/24/22 Adryan Bearden PA [facility]8 [place] [address] Referring Physician Gastroenterology 09/24/22 documented as of this encounter
--- OUTSIDE RECORDS SUMMARY | 2024-05-11 18:32 | XMS_ITS | Encounter Summary ---
Author Organization [facility] Address [address] [place] [address] Care Team Providers Care Human Performance Professor Name Role Phone Yonatan Graves DO Primary Care Provider Adryan Bearden Unavailable Encounter Details Date Type Department Care Team (Latest Contact Info) Description 11/01/2022 Travel Social History Tobacco Use Types Packs/Day [...] documented as of this encounter Care Teams Human Performance Professor Relationship Specialty Start Date End Date Yonatan Graves DO [address] [facility] [address] [place] [address] PCP - General 09/24/22 Adryan Bearden PA [facility]8 [place] [address] Referring Physician Gastroenterology 09/24/22 documented as of this encounter
--- OUTSIDE RECORDS SUMMARY | 2024-05-11 18:32 | XMS_ITS | Encounter Summary ---
Author Organization [facility] Address [address] [place] [address] Care Team Providers Care Sqe Name Role Phone Yonatan Graves DO Primary Care Provider Adryan Bearden Unavailable Encounter Details Date Type Department Care Team (Latest Contact Info) Description 12/26/2022 Travel Social History Tobacco Use Types Packs/Day [...] documented as of this encounter Care Teams Sqe Relationship Specialty Start Date End Date Yonatan Graves DO [address] [facility] [address] [place] [address] PCP - General 09/24/22 Adryan Bearden PA [facility]8 [place] [address] Referring Physician Gastroenterology 09/24/22 documented as of this encounter
--- OUTSIDE RECORDS SUMMARY | 2024-05-11 18:32 | XMS_ITS | Encounter Summary ---
Author Organization [facility] Address [address] [place] [address] Care Team Providers Care Bulldozer Engineer Name Role Phone Yonatan Graves Joseph LLANES Primary Care Provider Adryan Bearden Unavailable Reason for Visit * Reason Comments Alcohol Problem Encounter Details Date Type Department Care Team (Late st Contact Info) Description 05/29/2023 11:00 AM EST Office Visit [facility] Medicine Specialties [address], [address] [place] [address] Kierra Guajardo MD [address] [facility] [address] [place] [address] Alcohol use disorder (Primary Dx); [...] - - Weight 65.8 kg (145 lb) 05/29/2023 10:50 AM EST Height 165.1 cm (5' 5 ) 05/29/2023 10:50 AM EST Body Mass Index 24.13 05/29/2023 10:50 AM EST documented in this encounter Plan [...] documented as of this encounter Care Teams Bulldozer Engineer Relationship Specialty Start Date End Date Yonatan Graves DO [address] [place] [address] [address] [id number] PCP - General 09/24/22 Adryan Bearden PA [address] [place] [address] Referring Physician Gastroenterology 09/24/22 documented as of this encounter
--- OUTSIDE RECORDS SUMMARY | 2024-05-11 18:32 | XMS_ITS | Encounter Summary ---
Author Organization [facility] Address [address] [place] [address] Care Team Providers Care Hospital Technician Name Role Phone Yonatan Graves Joseph LLANES Primary Care Provider Adryan Bearden Unavailable Reason for Visit * Reason Comments Alcohol Use Disorder Encounter Details Date Type Department Care Team (Late st Contact Info) Description 07/03/2023 10:00 AM EST Office Visit [place] [facility] [address] [place] [place] [address] Kierra Guajardo MD 245 [facility] [address] [place] [address] Alcohol use disorder (Primary Dx); End-stage liver disease (CMS/HCC); CHATO (generalized anxiety disorder) Social History Tobacco Use Types Packs/Day Years [...] - - Weight 63.5 kg (140 lb) 07/03/2023 10:09 AM EST Height 165.1 cm (5' 5 ) 07/03/2023 10:09 AM EST Body Mass Index 23.3 07/03/2023 10:09 AM EST documented in this encounter Plan of Treatment Not on file documented as of this encounter Visit Diagnoses Diagnosis Alcohol use disorder- Primary End-stage liver disease (CMS/HCC) Other sequelae of chronic liver disease CHATO (generalized anxiety disorder) Generalized anxiety disorder documented in this encounter Additional Health Concerns Assessment Noted Time PHQ-9 Depression Total Score: 13 023 7:33 AM EDT A fall risk assessment has been complete d for the patient 07/03/2023 10:10 AM EST A Body Mass Index follow-up plan has been documented for the patient 07/13/2023 8:22 PM EST documented as of this encounter Care Teams Hospital Technician Relationship Specialty Start Date End Date Yonatan Graves DO [address] [place] [address] [address] [place] [id number] PCP - General 09/24/22 Adryan Bearden PA [address] [place] [address] Referring Physician Gastroenterology 09/24/22 documented as of this encounter
--- OUTSIDE RECORDS SUMMARY | 2024-05-11 18:32 | XMS_ITS | Encounter Summary ---
Author Organization [facility] Address [address] [place] [address] Care Team Providers Care Pretzel Twister Name Role Phone Yonatan Graves DO Primary Care Provider Adryan Bearden Unavailable Encounter Details Date Type Department Care Team (Latest Contact Info) Description 02/18/2023 Travel Social History Tobacco Use Types Packs/Day [...] documented as of this encounter Care Teams Pretzel Twister Relationship Specialty Start Date End Date Yonatan Graves DO [facility]8 [facility] [address] [place] [address] PCP - General 09/24/22 Adryan Bearden PA [facility]8 [place] [address] Referring Physician Gastroenterology 09/24/22 documented as of this encounter
--- OUTSIDE RECORDS SUMMARY | 2024-05-11 18:32 | XMS_ITS | Encounter Summary ---
Author Organization [facility] Address [address] [place] [address] Care Team Providers Care Software Technician Name Role Phone Yonatan Graves DO Primary Care Provider Adryan Bearden Unavailable Encounter Details Date Type Department Care Team (Latest Contact Info) Description 08/10/2023 Travel Social History Tobacco Use Types Packs/Day [...] as of this encounter Care Teams Software Technician Relationship Specialty Start Date End Date Yonatan Graves DO [address] [facility] [address] [place] [address] PCP - General 09/24/22 Adryan Bearden PA [facility]8 [place] [address] Referring Physician Gastroenterology 09/24/22 documented as of this encounter
--- OUTSIDE RECORDS SUMMARY | 2024-05-11 18:32 | XMS_ITS | Encounter Summary ---
Author Organization [facility] Address [address] [place] [address] Care Team Providers Care Center Machine Operator Name Role Phone Yonatan Graves DO Primary Care Provider Adryan Bearden Unavailable Encounter Details Date Type Department Care Team (Latest Contact Info) Description 04/08/2023 Travel Social History Tobacco Use Types Packs/Day [...] documented as of this encounter Care Teams Center Machine Operator Relationship Specialty Start Date End Date Yonatan Graves DO [facility]8 [facility] [address] [place], [place] [phone] PCP - General 09/24/22 Adryan Bearden PA [facility]8 [place] [address] Referring Physician Gastroenterology 09/24/22 documented as of this encounter
--- OUTSIDE RECORDS SUMMARY | 2024-05-11 18:32 | XMS_ITS | Encounter Summary ---
Author Organization [facility] Address [address] [place] [address] Care Team Providers Care Plumbing Engineer Name Role Phone Yonatan Graves DO Primary Care Provider Adryan Bearden Unavailable Encounter Details Date Type Department Care Team (Latest Contact Info) Description 12/27/2022 Travel Social History Tobacco Use Types Packs/Day [...] documented as of this encounter Care Teams Plumbing Engineer Relationship Specialty Start Date End Date Yonatan Graves DO [facility]8 [facility] [address] [place] [address] PCP - General 09/24/22 Adryan Bearden PA [facility]8 [place] [address] Referring Physician Gastroenterology 09/24/22 documented as of this encounter
--- OUTSIDE RECORDS SUMMARY | 2024-05-11 18:32 | XMS_ITS | Encounter Summary ---
Author Organization [facility] Address [address] [place] [address] Care Team Providers Care Mining Manager Name Role Phone Yonatan Graves DO Primary Care Provider Adryan Bearden Unavailable Encounter Details Date Type Department Care Team (Latest Contact Info) Description 04/03/2023 Travel Social History Tobacco Use Types Packs/Day [...] documented as of this encounter Care Teams Mining Manager Relationship Specialty Start Date End Date Yonatan Graves DO [facility]8 [facility] [address] [place], [place] [phone] PCP - General 09/24/22 Adryan Bearden PA [facility]8 [place] [address] Referring Physician Gastroenterology 09/24/22 documented as of this encounter
--- OUTSIDE RECORDS SUMMARY | 2024-05-11 18:32 | XMS_ITS | Encounter Summary ---
Author Organization [facility] Address [address] [place] [address] Care Team Providers Care Chapter Relations Administrator Name Role Phone Yonatan Graves DO Primary Care Provider Adryan Bearden Unavailable Reason for Referral * Imaging (Routine) - Closed Specialty Diagnoses / Procedures Referred By Contac t Referred To Contact Radiology Diagnoses End-stage liver disease (CMS/HCC) Liver lesion 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) Procedures MR Abdomen w and wo IV Contrast Farida Ortega, PROGRAM CONSULTANT [address] [address] Phone: tel: fax: Referral ID Status Reason Start Date Expiration Date Visits Re quested Visits Authorized [id number] Closed 12/30/2022 06/30/2024 1 1 Reason for Visit * Imaging (Routine) - Closed Specialty Diagnoses / Procedures Referred By Contac t Referred To Contact Radiology Diagnoses End-stage liver disease (CMS/HCC) Liver lesion 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) Procedures MR Abdomen w and wo IV Contrast Farida Ortega, PROGRAM CONSULTANT [address] [place] [phone] Phone: tel: fax: Referral ID Status Reason Start Date Expiration Date Visits Re quested Visits Authorized [id number] Closed 12/30/2022 06/30/2024 1 1 Encounter Details Date Type Department Care Team (Latest Contact Info) Description 04/08/2023 12:56 PM EDT - 04/08/2023 11:59 PM EDT Hospital Encounter [facility] Radiology [address], [address] [place] [address] End-stage liver disease (CMS/HCC); Liver lesion; 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) Discharge [...] Everywhere. * Contrast Imaging Discharge Instructions ([place]) (Mauritian) documented in this encounter Medications at Time of Discharge Multiple Vitamin (multivitamin) tablet Take 1 tablet by mouth 1 (one) time each day. 12/27/2022 FLUoxetine (PROzac) 10 MG capsule Take 1 capsule (10 mg) by mouth 1 (one) time each day. 30 capsule 04/03/2023 05/14/2023 furosemide (Lasix) 20 MG tablet Take 1 [...] ABDOMEN W AND WO IV CONTRAST Routine 04/08/2023 2:08 PM EDT End-stage liver disease (CMS/HCC) Liver lesion 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) documented in this encounter Results * MR Abdomen w and wo IV Contrast (04/08/2023 2:08 PM EDT) Anatomical Region Laterality Modality Abdomen Magnetic Resonan ce Impressions 04/08/2023 4:08 PM EDT Focal Hepatic Observations: Stable LI-RADS 3 lesions in segment 2 and 3 which appears slightly less conspicuous on the current examination. No new suspicious liver lesions. Extrahepatic Findings: Large volume ascites. Redemonstration of sequela of portal hypertension, with visualization of the periumbilical vein, and paraesophageal varices. CRITICAL RESULT: No. COMMUNICATION: Per this written [...] are consistent with and integrated into the [employer] Liver Diseases [...] with the final edited report. Drafted by Tim Spicer MD on 04/08/2023 3:03 PM Final report signed by Loly Lee MD on 04/08/2023 4:08 PM Narrative 04/08/2023 4:08 PM EDT CLINICAL INDICATION: Abdominal mass, intra-abdominal neoplasm suspected TECHNIQUE: MR imaging of the abdomen was performed without and with intravenous contrast material using the following sequences: coronal single shot T2 weighted fast spin echo, axial T2 weighted sequences with and without fat saturation, axial dual phase gradient echo, pre and dynamic postcontrast 3-D T1 weighted gradient echo with fat saturation (axial and coronal) and axial diffusion. 6.7 mL of Gadavist was administered. Examination meets LI-RADS technical recommendations. COMPARISON: MRI abdomen performed December 27, 2022 FINDINGS: Liver: Liver demonstrates cirrhotic morphology, with diffuse steatosis. Redemonstration of nonenhancing T1 hypointense lesion in segment 2 Hepatic Vasculature: Hepatic arterial anatomy is standard. The portal veins are patent. Focal Hepatic Observations: ?? Observations#1: Location: ?? Segment III Size: ?? 1 cm (image #57, series 20) Hepatic arterial phase hyperenhancement: ?? No Threshold Growth: No PV/Equilibrium Washout: ?? Not applicable Capsule Appearance: ?? Present Ancillary Features: ? *Favoring benignity: None ? *Favoring malignancy: None Overall Assessment: ?? LI-RADS 3 (Intermediate probability of HCC) Observations#2: Location: ?? Segment II Size: ?? 5 mm (image #52, series 20) Hepatic arterial phase hyperenhancement: ?? No Threshold Growth: No PV/Equilibrium Washout: ?? Not applicable Capsule Appearance: ?? Present Ancillary Features: ? *Favoring benignity: None ? *Favoring malignancy: None Overall Assessment: ?? LI-RADS 3 (Intermediate probability of HCC) Extrahepatic Findings: Borderline splenomegaly, spleen measuring approximately 12.5 cm in the AP dimension. Gallbladder is notable for multiple subcentimeter stones layering in the dependent portion near the neck. Large volume ascites.Unremarkable pancreas.Subcentimeter renal cysts bilaterally.Unremarkable adrenal glands bilaterally. No suspicious or aggressive osseous lesions. Redemonstration of mild nonspecific bowel wall thickening, similar in appearance compared to the prior study. No lymphadenopathy. Aortoiliac vasculature and IVC are patent. Redemonstration of portal hypertensive changes, with recanalization of the periumbilical vein, with persistent paraesophageal varices Procedure Note Loly Lee MD - 04/08/2023 CLINICAL INDICATION: Abdominal mass, intra-abdominal neoplasm suspected TECHNIQUE: MR imaging of the abdomen was performed without and with intravenouscontrast material using the following sequences: coronal single shot [id number] fast spin echo, axial T2 weighted sequences with and without fatsaturation, axial dual phase gradient echo, pre and dynamic postcontrast3-D T1 weighted gradient echo with fat saturation (axial and coronal) andaxial diffusion. 6.7 mL of Gadavist was administered. Examination meets LI-RADS technical recommendations. COMPARISON: MRI abdomen performed December 27, 2022 FINDINGS: Liver: Liver demonstrates cirrhotic morphology, with diffuse steatosis.Redemonstration of nonenhancing T1 hypointense lesion in segment 2 Hepatic Vasculature: Hepatic arterial anatomy is standard. The portalveins are patent. Focal Hepatic Observations: Observations#1: Location: Segment III Size: 1 cm (image #57, series 20) Hepatic arterial phase hyperenhancement: No Threshold Growth: No PV/Equilibrium Washout: Not applicable Capsule Appearance: Present Ancillary Features: *Favoring benignity: None *Favoring malignancy: None Overall Assessment: LI-RADS 3 (Intermediate probability of HCC) Observations#2: Location: Segment II Size: 5 mm (image #52, series 20) Hepatic arterial phase hyperenhancement: No Threshold Growth: No PV/Equilibrium Washout: Not applicable Capsule Appearance: Present Ancillary Features: *Favoring benignity: None *Favoring malignancy: None Overall Assessment: LI-RADS 3 (Intermediate probability of HCC) Extrahepatic Findings: Borderline splenomegaly, spleen measuring approximately 12.5 cm in the APdimension. Gallbladder is notable for multiple subcentimeter stones layering in thedependent portion near the neck. Large volume ascites.Unremarkable pancreas.Subcentimeter renal cystsbilaterally.Unremarkable adrenal glands bilaterally. No suspicious or aggressive osseous lesions. Redemonstration of mildnonspecific bowel wall thickening, similar in appearance compared to theprior study. No lymphadenopathy. Aortoiliac vasculature and IVC are patent.Redemonstration of portal hypertensive changes, with recanalization of theperiumbilical vein, with persistent paraesophageal varices IMPRESSION: Focal Hepatic Observations: Stable LI-RADS 3 lesions in segment 2 and 3 which appears slightly lessconspicuous on the current examination. No new suspicious liver lesions. Extrahepatic Findings: Large volume ascites. Redemonstration of sequela of portal hypertension, with visualization ofthe periumbilical vein, and paraesophageal varices. CRITICAL RESULT: No. COMMUNICATION: Per this written [...] are consistent with and integrated into the [employer]for [employer] Study of Liver Diseases (AASLD) [...] with the final edited report. Drafted by Tim Spicer MD on 04/08/2023 3:03 PM Final report signed by Loly Lee MD on 04/08/2023 4:08 PM Farida Ortega PROGRAM CONSULTANT IMG MRI PROCEDURES Final R esult documented in this encounter Visit Diagnoses Diagnosis End-stage liver disease (CMS/HCC) Other sequelae of chronic liver disease Liver lesion Other specified disorders of liver 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) documented in this encounter Administered Medications Inactive Administered Medications - up to 3 most recent administrations Medication Order MAR Action Action Date Dose Rate Site gadobutrol (Gadavist) injection 6.7 mmol 6.7 mmol (0.1 mL/kg ? 67 kg), Intravenous, Once in imaging, 1 dose, Starting on Fri04/08/23 at 1303, Until Fri04/08/23 at 1400, Routine, Imaging Protocol Orders Given 04/08/2023 2:00 PM EDT 6.7 mmol Left Antecubital documented in this encounter Additional Health Concerns Assessment Noted Time PHQ-9 Depression Total Score: 13 023 7:33 AM EDT A fall risk assessment has been complete d for the patient 04/03/2023 1:25 PM EDT A Body Mass Index follow-up plan has been documented for the patient 12/29/2022 9:05 PM EDT documented as of this encounter Care Teams Chapter Relations Administrator Relationship Specialty Start Date End Date Yonatan Graves DO [facility] [address] [place] [address] PCP - General 09/24/22 Adryan Bearden PA [facility]8 [place] [address] Referring Physician Gastroenterology 09/24/22 documented as of this encounter
--- OUTSIDE RECORDS SUMMARY | 2024-05-11 18:32 | XMS_ITS | Encounter Summary ---
Author Organization [facility] Address [address] [place] [address] Care Team Providers Care Photographer Scientific Name Role Phone Yonatan Graves DO Primary Care Provider Adryan Bearden Unavailable Encounter Details Date Type Department Care Team (Latest Contact Info) Description 08/15/2023 Travel Social History Tobacco Use Types Packs/Day [...] documented as of this encounter Care Teams Photographer Scientific Relationship Specialty Start Date End Date Yonatan Graves DO [address] [facility] [address] [place] [address] PCP - General 09/24/22 Adryan Bearden PA [facility]8 [place] [address] Referring Physician Gastroenterology 09/24/22 documented as of this encounter
--- OUTSIDE RECORDS SUMMARY | 2024-05-11 18:32 | XMS_ITS | Encounter Summary ---
Author Organization [facility] Address [address] [place] [address] Care Team Providers Care Transportation Security Officer Name Role Phone Yonatan Graves DO Primary Care Provider Adryan Bearden Unavailable Encounter Details Date Type Department Care Team (Latest Contact Info) Description 07/29/2023 Travel Social History Tobacco Use Types Packs/Day Years Used Date Smoking Tobacco: Former Cigarettes Q uit: 05/14/2019 Passive Smoke Exposure: Past Smokeless Tobacco: Never Alcohol Use Standard Drinks/Week Comments Yes 3 (1 standard drink = 0.6 oz pur e alcohol) PHQ-2 Answer Date Recorded Patient Health Questionnaire-2 Score 2 07/29/2023 PHQ-9 Answer Date Recorded Patient Health Questionnaire-9 Score 18 07/29/2023 PHQ-2A Answer Date Recorded Patient Health Questionnaire-2 [...] Time PHQ-9 Depression Total Score: 18 024 9:17 AM EST A fall risk assessment has been complete d for the patient 07/17/2023 9:04 AM EST A Body Mass Index follow-up plan has been documented for the patient 07/27/2023 6:29 PM EST documented as of this encounter Care Teams Transportation Security Officer Relationship Specialty Start Date End Date Yonatan Graves DO [address] [facility] [address] [place] [address] PCP - General 09/24/22 Adryan Bearden PA [facility] [place] [address] Referring Physician Gastroenterology 09/24/22 documented as of this encounter
--- OUTSIDE RECORDS SUMMARY | 2024-05-11 18:32 | XMS_ITS | Encounter Summary ---
Author Organization [facility] Address [address] [place] [address] Care Team Providers Care No Bake Molder Name Role Phone Star Yonatan Joseph LLANES Primary Care Provider Ardyan Bearden Unavailable Reason for Visit * Reason Onset Date Comments Community Resources 05/29/2023 Encounter Details Date Type Department Care Team (Late st Contact Info) Description 05/29/2023 Telephone [facility] Medicine Specialties [address] [place] [address] Hortencia Rowell [facility] [address] Resources Social History Tobacco Use Types Packs/Day Years [...] encounter Miscellaneous Notes * Telephone Encounter - Hortencia Rowell - 06/27/2023 10:10 AM EST Pt states that she attended her counseling session yesterday, 06/26/23, and it went well. She is scheduled for a follow up on 07/08. SW wishes Pt well and encourages her to reach out if any further resources are needed. Need has been met, closing encounter. * Telephone Encounter - Hortencia Rowell - 06/04/2023 12:17 PM EST Call to Pt to follow up with [facility] referral. Pt stated that she had forgot to call. Pt will call and make an appointment and will follow up with Pt to let her know what date/time her appointment is scheduled for. Pt called back. Pt is scheduled for counseling appointment on 06/26. SW will follow up post appointment and see if Pt needs any further assistance. * Telephone Encounter - Hortencia Rowell - 05/29/2023 12:04 PM EST Call to Pt to follow up on mental health counseling resources. Pt states that she feels with everything going on with her health she may benefit from talking to someone. Pt requests someone tele health as [place] from [place] and [place] known in the community. She would feel more comfortable talking to someone who does not know her. SW called [employer], . They do accept her insurance. Pt is able to call on her own andschedule. SW called Pt back and provided the phone number and will call Pt next week to check in and make sure that she was able to make an appointment. * Telephone Encounter - Hortencia Rowell - 05/29/2023 8:44 AM EST Images from the original note were not included. Kierra Guajardo MD Miller, Alyssa A Hi Alyssa, I think the disability is already in the works. She is just needing counseling resources at this time. She was very tearful and scared last week when I talked her. She does not feel like she understands what is going on with liver and is afraid she is dying. Her family does not understand the seriousness. She is intermittently drinking, but now ready to make a change. Previous Messages ----- Message ----- From: Hortencia Rowell Sent: 05/29/2023 8:23 AM EST To: Kierra Guajardo MD Subject: RE: Counseling Resources I am not sure if she has a social studies teacher assigned to her. I do not believe any [facility] Social Workers help with disability. I am happy to check in with her on this though. I will check with her insurance and resources in [place]. Thank you! * Telephone Encounter - Hortencia Rowell - 05/29/2023 8:21 AM EST ----- Message from Kierra Guajardo MD sent at 05/29/2023 8:08 AM EST ----- Regarding: Counseling Resources HI Hortencia, Do you know if this patient has an assigned SW? I am looking for places for individual therapy for her in [place]. I know she was working on getting disability, but I didn't know if she had an assigned SW from the office that could help me with this. She was ambivalent before, but is now willing to engage. She has decompensated cirrhosis. documented in this encounter Plan of Treatment [...] documented as of this encounter Care Teams No Bake Molder Relationship Specialty Start Date End Date Yonatan Graves DO [facility] [address] [place] [address] PCP - General 09/24/22 Adryan Bearden PA [facility]8 [place] [address] Referring Physician Gastroenterology 09/24/22 documented as of this encounter
--- OUTSIDE RECORDS SUMMARY | 2024-05-11 18:32 | XMS_ITS | Encounter Summary ---
Author Organization [facility] Address [address] [place] [address] Care Team Providers Care Security Support Analyst Name Role Phone Yonatan Graves DO Primary Care Provider Adryan Bearden Unavailable Encounter Details Date Type Department Care Team (Late st Contact Info) Description 02/25/2023 Telephone [facility] Medicine Specialties [address] [place] [address] Diana Ball CNA Social History Tobacco Use Types Packs/Day Years [...] encounter Miscellaneous Notes * Telephone Encounter - Diana Ball - 02/25/2023 10:29 AM EDT ----- Message from Farida Ortega APRN sent at 02/21/2023 1:58 PM EDT ----- I don't see she was schedule follow up appt. Pls make appt for 2 months FTF. Thanks. documented in this encounter Plan of Treatment [...] documented as of this encounter Care Teams Security Support Analyst Relationship Specialty Start Date End Date Yonatan Graves DO [address] [place] [address] [place], [place] [id number] PCP - General 09/24/22 Adryan Bearden PA [address] [place], [place] [id number] Referring Physician Gastroenterology 09/24/22 documented as of this encounter
--- OUTSIDE RECORDS SUMMARY | 2024-05-11 18:33 | XMS_ITS ---
Author Organization [facility] Address [address] [place] [address] Care Team Providers Care Polishing Wheel Repairer Name Role Phone Yonatan Graves DO Primary Care Provider Adryan Bearden Unavailable Transplant Episode Liver Candidate [facility] ([place], [place]) - [facility] Referred on 09/24/2022 Marked as Ineligible on 12/30/2022 Reason: Substance Abuse Liver CoordinatorTresa Vieira RN Phone: N/A Fax: N/A Email: N/A Scores Score Value Updated Expires Exceptions/Chapin sons CPRA Not available UNOS MELD Not available MELD (Calc) 21 10/07/2023 [place] Organ Diagnosis 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
--- OUTSIDE RECORDS SUMMARY | 2024-05-11 18:33 | XMS_ITS | Encounter Summary ---
Author Organization [facility] Address [address] [place] [address] Care Team Providers Care Head Of Geography Name Role Phone Yonatan Graves DO Primary Care Provider Adryan Bearden Unavailable Reason for Referral * Transplant (Routine) - Closed Specialty Diagnoses / Procedures Referred By Contac t Referred To Contact Transplant Diagnoses End-stage liver disease (CMS/HCC) Adryan Bearden PA [address] [place] [address] Phone: tel: fax: [facility] [address] [address] Phone: tel: fax: Referral ID Status Reason Start Date Expiration Date V isits Requested Visits Authorized [id number] Closed Specialty Services Required 09/24/2022 03/25/[phone] Reason for Visit * Reason Comments Referral - Liver Txp Encounter Details Date Type Department Care Team (Late st Contact Info) Description 09/24/2022 Telephone [facility] [address] [place] [phone] Lani Maynard [facility] [address] [place] [address] Referral - Liver Txp Social History Tobacco Use Types Packs/Day Years [...] * Telephone Encounter - Lani Maynard - 09/24/2022 1:26 PM EDT New Patient Pre-Liver referral from Adryan Bearden - scheduling pending insurance review. documented in this encounter Plan of Treatment Scheduled Referrals Name Type Priority Associated Diagnoses Order Schedule Ambulatory referral to Solid Organ Transplant Team Outpatient Referral Routine End-stage liver disease (CMS/HCC) Ordered: 09/24/2022 documented as of this encounter Procedures Procedure Name Priority Date/Time Associated Diagnosis Comments CREATININE, PLASMA Routine 09/18/2022 PROTHROMBIN TIME(PT) / INR Routine 09/18/2022 SODIUM, PLASMA Routine 09/18/2022 TOTAL BILIRUBIN, PLASMA Routine 09/18/2022 documented in this encounter Results * Total Bilirubin, Plasma (09/18/2022) External Bilirubin Total 4.3 mg/dL Blood Venous blood specimen / Unknown 09/18/2022 Historical Provider MD LAB BLOOD ORDERABLES Rosa l Result * Creatinine, Plasma (09/18/2022) External Creatinine Blood 0.7 mg/dL Blood Venous blood specimen / Unknown 09/18/2022 Historical Provider LAB BLOOD ORDERABLES Rosa l Result * Sodium, Plasma (09/18/2022) External Sodium 137 mmol/L Blood Venous blood specimen / Unknown 09/18/2022 Historical Provider LAB BLOOD ORDERABLES Rosa l Result * Prothrombin Time/INR (09/18/2022) External Prothrombin Time (PT) 15.3 External INR - Internormal Ratio 1.5 Blood Venous blood specimen / Unknown 09/18/2022 Historical Provider LAB BLOOD ORDERABLES Rosa l Result documented in this encounter Visit Diagnoses Diagnosis End-stage liver disease (CMS/HCC)- Primary Other sequelae of chronic liver disease documented in this encounter Care Teams Head Of Geography Relationship Specialty Start Date End Date Yonatan Graves DO [address] [place] [address] [address] [place] [address] PCP - General 09/24/22 Adryan Bearden PA [address] [place] [address] Referring Physician Gastroenterology 09/24/22 documented as of this encounter
--- OUTSIDE RECORDS SUMMARY | 2024-05-11 18:33 | XMS_ITS | Encounter Summary ---
Author Organization [facility] Address [address] [place] [address] Care Team Providers Care Digital Performance Analyst Name Role Phone Yonatan Graves DO Primary Care Provider Adryan Bearden Unavailable Encounter Details Date Type Department Care Team (Late st Contact Info) Description 08/22/2022 Orders Only External Location [address] [place] [address] Yonatan Graves DO [address] [facility] [address] [place] [phone] Social History Tobacco Use Types Packs/Day Years [...] Procedure Name Priority Date/Time Associated Diagnosis Comments CT RENAL STONE WO IV CONTRAST 08/22/2022 1:06 PM EST documented in this encounter Results * CT Renal Stone wo IV Contrast (08/22/2022 1:06 PM EST) Anatomical Region Laterality Modality Abdomen, Pelvis Computed Tomogra phy 08/22/2022 1:06 PM EST us Yonatan Graves DO IMG CT PROCEDURES Rosa l Result documented in this encounter Visit Diagnoses Not on filedocumented in this encounter Care Teams Digital Performance Analyst Relationship Specialty Start Date End Date Yonatan Graves DO [address] [place] [address] [address] [place] [phone] PCP - General 09/24/22 Adryan Bearden PA [address] [place], [place] [phone] Referring Physician Gastroenterology 09/24/22 documented as of this encounter
--- OUTSIDE RECORDS SUMMARY | 2024-05-11 18:33 | XMS_ITS | Encounter Summary ---
Author Organization [facility] Address [address] [place] [address] Care Team Providers Care Product Scientist Name Role Phone Unavailable Primary Care Provider Unavailabl e Encounter Details Date Type Department Care Team ([facility] st Contact Info) Description 09/29/2015 [facility] Vitals Encounter [facility] OUTPATIENT CONVERSIONS [address] [place] [address] ProviderPeter MD [facility] [place] [phone] Social History Tobacco Use Types Packs/Day Years [...] - Inhaled Oxygen Concentration - - Weight 74.6 kg (164 lb 7.1 oz) 09/29/2015 11:32 AM EDT Height 165.1 cm (5' 5 ) 09/29/2015 11:32 AM EDT Body Mass Index 27.36 09/29/2015 11:32 AM EDT documented in this encounter Plan of Treatment Not on file documented as of this encounter Visit Diagnoses Not on filedocumented in this encounter
--- OUTSIDE RECORDS SUMMARY | 2024-05-11 18:33 | XMS_ITS | Encounter Summary ---
Author Organization [facility] Address [address] [place] [address] Care Team Providers Care Grounds And Nursery Specialist Name Role Phone Yonatan Graves DO Primary Care Provider Adryan Bearden Unavailable Reason for Referral * Consultation (Routine) - Closed Specialty Diagnoses / Procedures Referred By Contac t Referred To Contact Transplant Diagnoses End-stage liver disease (CMS/HCC) Robert Hung MD [address] [address] Phone: tel: fax: [facility] [place] [phone] [address] Phone: tel: fax: Referral ID Status Reason Start Date Expiration Date V isits Requested Visits Authorized [id number] Closed Specialty Services Required 09/25/2022 03/26/2024 1 1 Reason for Visit * Reason Comments Appointment Scheduling ICE Encounter Details Date Type Department Care Team (Late st Contact Info) Description 09/25/2022 Telephone [facility] [address] [address] Lani Maynard [facility] [address] [place] [address] Appointment (Scheduling ICE) Social History Tobacco Use Types Packs/Day Years [...] * Telephone Encounter - Lani Maynard - 09/25/2022 1:32 PM EDT Called to schedule New Patient Pre-Liver Initial Clinic Evaluation - spoke to Ms Wade (previously Pittman) - scheduled for 11/01/2022 at 7am. Notified referring - left voicemail message. Emailed invitation to [facility] - new patient materials will be attached once activated. Mailed additional required documents. Faxed request to [facility] for additional records and images. documented in this encounter Plan of Treatment Scheduled Referrals Name Type Priority Associated Diagnoses Order Schedule Initial Clinic Evaluation - Transplant Hepatology Outpatient Referral Routine End-stage liver disease (CMS/HCC) 1 Occurrences starting 09/25/2022 until 03/27/2024 documented as of this encounter Results * Alcohol Urine (11/01/2022 11:51 AM EDT) Alcohol Urine Positive Negative 11/01/2022 3:44 PM EDT [facility] Urine Urine specimen obtained by clean catch procedure / Unknown Non-blood Collection / Unknown 11/01/2022 11:51 AM EDT 11/01/2022 1:59 PM EDT Narrative [facility] - 11/01/2022 3:44 PM EDT The correlation between urine and serum ethanol concentration is highly variable. Test performed by Gas Chromatography at the [facility]. This test was developed and its performance characteristics determined by [facility]. It has not been cleared or approved by the FDA.The laboratory is regulated under CLIA as qualified to perform high-complexity testing. This test is used for clinical purposes only. us Robert Hung MD LAB URINE ORDERABLES Final Resul t [facility] [address] [place] [address] * Comprehensive urine drug screening, Qualitative Assay (11/01/2022 11:51 AM EDT) [facility] Comprehensive Urine Drug Screen Result Negative Negative 11/05/2022 5:40 AM EDT [facility] Urine Urine specimen obtained by clean catch procedure / Unknown Non-blood Collection / Unknown 11/01/2022 11:51 AM EDT 11/01/2022 1:59 PM EDT Narrative [facility] - 11/05/2022 5:40 AM EDT Drugs in urine are analyzed by gas chromatography-mass spectrometry. This test was developed and its performance characteristics determined by [facility].It has not been cleared or approved by the FDA.The laboratory is regulated under CLIA as qualified to perform high-complexity testing. This test is used for clinical purposes. Testing is performed at the [facility]. Drugs detected MAY include the following, but are not limited to this list. Drugs will be reported if they meet the laboratory quality criteria for identification.: Acetaminophen, alprazolam, amitriptyline, amphetamine, atenolol, bupropion, butalbital, carbamazepine, chlorpheniramine, citalopram, clopidogrel, cocaine, cyclobenzaprine, desvenlafaxine, dextromethorphan, diazepam, diphenhydramine, diltiazem, doxepine, doxylamine, fentanyl, fluconazole, fluoxetine, gabapentin, guaifenesin, haloperidol, heroin, hydrocodone, hydroxyzine, ibuprofen, imipramine, ketamine, labetolol, lamotrigine, levetiracetam, lidocaine, metaxalone, methadone, methamphetamine, methocarbamol, metoclopramide, metoprolol, metronidazole, midazolam, mirtazapine, naproxen, nortriptyline, ordanstron, oxcarbazepine, oxycodone, paroxetine, phentermine, phenytoin, promethazine, propofol, propranolol, quetiapine, quinine, rantidine, sertraline, spironolactone, tizanidine, topiramate, tramadol, trazodone, trimethoprim, venlafaxine, verapamil. us Robert Hung MD LAB URINE ORDERABLES Final Resul t Performing Organization Address [facility] de Phone Number [facility] [address] [place] [address] * (ABNORMAL) Hepatitis A Antibody IgG (11/01/2022 7:31 AM EDT) Hepatitis A Antibody IgG Positive(A ) Negative 11/01/2022 8:52 AM EDT [facility] Blood Venous blood specimen / Unknown Venipuncture / Unknown 11/01/2022 7:31 AM EDT 11/01/2022 8:01 AM EDT us Robert Hung MD LAB BLOOD ORDERABLES Final Resul t Performing Organization Address [facility] de Phone Number [facility] [address] [place] [address] * Hepatitis B Surface Antibody (11/01/2022 7:31 AM EDT) Hepatitis B Surface Antibody Negative Negative mIU/mL 11/01/2022 8:52 AM EDT [facility] Comment:Antibodies to HBsAg are less than 8 International Units /L which indicate they are not detected or are below the protective level for immunity. Blood Venous blood specimen / Unknown Venipuncture / Unknown 11/01/2022 7:31 AM EDT 11/01/2022 8:01 AM EDT us Robert Hung MD LAB BLOOD ORDERABLES Final Resul t Performing Organization Address [facility] de Phone Number [facility] [address] [place] [address] * Hepatitis B Surface Antigen (11/01/2022 7:31 AM EDT) Hepatitis B Surf Antigen Negative Negative 11/01/2022 8:52 AM EDT [facility] Blood Venous blood specimen / Unknown Venipuncture / Unknown 11/01/2022 7:31 AM EDT 11/01/2022 8:01 AM EDT us Robert Hung MD LAB BLOOD ORDERABLES Final Resul t Performing Organization Address City/[facility]/ZIP Co de Phone Number [facility] [address] [place] [address] * (ABNORMAL) Hepatitis C Antibody (11/01/2022 7:31 AM EDT) Hepatitis C Antibody Positive( A) Negative 11/01/2022 8:44 AM EDT [facility] Comment:This specimen is jeremías ng sent for confirmation by RT-PCR. Blood Venous blood specimen / Unknown Venipuncture / Unknown 11/01/2022 7:31 AM EDT 11/01/2022 8:01 AM EDT Robert Hung MD LAB BLOOD ORDERABLES Final Resul t Performing Organization Address City/[facility]/ZIP Co de Phone Number [facility] [address] [place] [address] * Nicotine Cotinine Metabolite (11/01/2022 7:31 AM EDT) Pathologist [facility] Nicotine, S/P, Quant <5 ng/mL 11/06/2022 1:08 AM EDT [facility] ([facility]) Cotinine, S/P, Quant <5 ng/mL 11/06/2022 1:08 AM EDT [facility] ([facility] [place]) Blood Venous blood specimen / Unknown Venipuncture / Unknown 11/01/2022 7:31 AM EDT 11/01/2022 8:01 AM EDT Narrative [facility] ([facility]) - 11/06/2022 1:08 AM EDT Consistent with abstinence from nicotine-containing products for at least 1 week. INTERPRETIVE INFORMATION: Nicotine and Metabolites, ?Serum or Plasma, ?Quantitative Methodology: Quantitative Liquid Chromatography-Tandem Mass Spectrometry Positive cutoff: 5 ng/mL For medical purposes only; not valid for forensic use. This test is designed to evaluate recent use of nicotine-containing products. ??Passive and active exposure cannot be discriminated definitively, although a cutoff of 10 ng/mL cotinine is frequently used for surgery qualification purposes. ?? For smoking cessation programs or compliance testing, the absence of expected drug(s) and/or drug metabolite(s) may indicate non-compliance, inappropriate timing of specimen collection relative to drug administration, poor drug absorption, or limitations of testing. This test cannot distinguish between use of tobacco and purified nicotine products. The concentration value must be greater than or equal to the cutoff to be reported as positive. ?? This test was developed and its performance characteristics determined by [facility]. It has not been cleared or approved by the [place] Food and Drug Administration. This test was performed in a CLIA certified laboratory and is intended for clinical purposes. Performed By: [facility] [address] [place] [address] [employer]ker: Mark Atwood MD, PhD us Robert Hung MD LAB BLOOD ORDERABLES Final Resul t [facility] [address] [place] [address] * (ABNORMAL) Protime-INR (11/01/2022 7:31 AM EDT) Prothrombin Time 19.9(H) 12.0 - 14.3 sec LAB COAGULATION METHOD 11/01/2022 8:57 AM EDT [facility] INR 1.7(H) 0.9 - 1.1 LAB COAGULATION METHOD 11/01/2022 8:57 AM EDT [facility] Blood Venous blood specimen / Unknown Venipuncture / Unknown 11/01/2022 7:31 AM EDT 11/01/2022 8:01 AM EDT Narrative [facility] - 11/01/2022 8:57 AM EDT OPTIMAL INR RANGES FOR PATIENT ON ORAL ANTICOAGULANT THERAPY Prevention of venous thromboembolism ?INR 2.0 to 3.0 In patients with heart disease: Atrial fibrillation ?INR 2.0 to 3.0 Valvular heart disease ? INR 2.0 to 3.0 Tissue heart valves ?INR 2.0 to 3.0 Mechanical prosthetic valves ? INR 2.5 to 3.5 Prevention of recurrent MO ? INR 2.5 to 3.5 us Robert Hung MD LAB BLOOD ORDERABLES Final Resul t [facility] [address] [place] [address] * (ABNORMAL) Comprehensive metabolic panel (11/01/2022 7:31 AM EDT) Glucose, Plasma 135(H) 74 - 99 mg/dL 11/01/2022 8:33 AM EDT [facility] BUN, Plasma 6(L) 7 - 21 mg/dL 11/01/2022 8:33 AM EDT [facility] Creatinine, Plasma 0.59(L) 0.60 - 1.10 mg/dL 11/01/2022 8:33 AM EDT [facility] BUN/Creatinine Ratio 10 11/01/2022 8:33 AM EDT [facility] Sodium, Plasma 136 136 - 145 mmol/L 11/01/2022 8:33 AM EDT [facility] Potassium, Plasma 3.1(L) 3.7 - 4.8 mmol/L 11/01/2022 8:33 AM EDT [facility] Chloride, Plasma 99 97 - 107 mmol/L 11/01/2022 8:33 AM EDT [facility] CO2, Plasma 25 22 - 29 mmol/L 11/01/2022 8:33 AM EDT [facility] Anion Gap 12 6 - 16 mmol/L 11/01/2022 8:33 AM EDT [facility] Total Calcium, Plasma 8.4(L) 8.9 - 10.2 mg/dL 11/01/2022 8:33 AM EDT [facility] Total Protein 7.7 6.3 - 7.9 g/dL 11/01/2022 8:33 AM EDT [facility] Albumin, Plasma 3.5 3.5 - 5.2 g/dL 11/01/2022 8:33 AM EDT [facility] AST, Plasma 114(H) 11 - 32 U/L 11/01/2022 8:33 AM EDT [facility] ALT, Plasma 46(H) 8 - 33 U/L 11/01/2022 8:33 AM EDT [facility] Alkaline Phosphatase, Plasma 131(H) 35 - 104 U/L 11/01/2022 8:33 AM EDT [facility] Total Bilirubin, Plasma 4.7(H) 0.2 - 1.1 mg/dL 11/01/2022 8:33 AM EDT [facility] eGFRcr 123.0 mL/min/1.7 3m*2 11/01/2022 8:33 AM EDT [facility] Comment: Reported eGFRcr in mL/min/1.73m2 is based the CKD-EPI 2020 equation that does not use a race coefficient. Effective 01/16/22 our laboratory changed the eGFR calculation to the CKD-EPI 2021 equation from the previously reported eGFR, based on the MDRD equation. ??For comparisons between the two equations, please see laboratory website: ??[email or web address] Blood Venous blood specimen / Unknown Venipuncture / Unknown 11/01/2022 7:31 AM EDT 11/01/2022 8:01 AM EDT us Robert Hung MD LAB BLOOD ORDERABLES Final Resul t [facility] [address] [place] [address] * (ABNORMAL) Hemogram (CBC) (11/01/2022 7:31 AM EDT) WBC Count 6.26 3.70 - 10.30 10*3/uL LAB HEMATOLOGY METHOD 11/01/2022 8:52 AM EDT [facility] RBC Count 3.21(L) 3.90 - 5.20 10*6/uL LAB HEMATOLOGY METHOD 11/01/2022 8:52 AM EDT [facility] HGB 11.8 11.2 - 15.7 g/dL LAB HEMATOLOGY METHOD 11/01/2022 8:52 AM EDT [facility] HCT 35.0 34.0 - 45.0 % LAB HEMATOLOGY METHOD 11/01/2022 8:52 AM EDT [facility] Platelet Count 77(L) 155 - 369 10*3/uL LAB HEMATOLOGY METHOD 11/01/2022 8:52 AM EDT [facility] MCV 109(H) 79 - 98 fL LAB HEMATOLOGY METHOD 11/01/2022 8:52 AM EDT [facility] MCH 36.8(H) 26.0 - 32.0 pg LAB HEMATOLOGY METHOD 11/01/2022 8:52 AM EDT [facility] MCHC 33.7 30.7 - 35.5 g/dL LAB HEMATOLOGY METHOD 11/01/2022 8:52 AM EDT [facility] RDW 13.2 11.5 - 14.5 % LAB HEMATOLOGY METHOD 11/01/2022 8:52 AM EDT [facility] MPV 11.7 8.8 - 12.5 fL LAB HEMATOLOGY METHOD 11/01/2022 8:52 AM EDT [facility] nRBC 0.0 <=0.0 per 100 WBCs LAB HEMATOLOGY METHOD 11/01/2022 8:52 AM EDT [facility] Blood Venous blood specimen / Unknown Venipuncture / Unknown 11/01/2022 7:31 AM EDT 11/01/2022 8:03 AM EDT Robert Hung MD LAB BLOOD ORDERABLES Final Resul t [facility] [address] [place] [address] * (ABNORMAL) Alpha fetoprotein, serum (11/01/2022 7:31 AM EDT) Alpha Fetoprotein, Serum 16.2(H) <10.0 ng/mL 11/01/2022 8:37 AM EDT [facility] Blood Venous blood specimen / Unknown Venipuncture / Unknown 11/01/2022 7:31 AM EDT 11/01/2022 8:01 AM EDT Narrative [facility] - 11/01/2022 8:37 AM EDT Performed by [facility] electrochemiluminescent immunoassay which is traceable to the 1st AFP IRP WHO Reference standard 72/255. Results obtained with different test methods or kits cannot be used interchangeably. Robert Hung MD LAB BLOOD ORDERABLES Final Resul t [facility] [address] [place] [address] * ABO/Rh (11/01/2022 7:31 AM EDT) ABO/Rh O Positive 11/01/2022 7:27 AM EDT [facility] Blood Venous blood specimen / Unknown Venipuncture / Unknown 11/01/2022 7:31 AM EDT 11/01/2022 8:04 AM EDT us Robert Hung MD LAB BLOOD BANK TEST ORDERABLES F inal Result Performing Organization Address City/State/[facility] Co de Phone Number BLOOD BANK [address] documented in this encounter Visit Diagnoses Diagnosis End-stage liver disease (CMS/HCC)- Primary Other sequelae of chronic liver disease documented in this encounter Care Teams Grounds And Nursery Specialist Relationship Specialty Start Date End Date Yonatan Graves DO [address] [place] [address] [address] [place] [address] PCP - General 09/24/22 Adryan Bearden PA [address] [place] [address] Referring Physician Gastroenterology 09/24/22 documented as of this encounter
--- OUTSIDE RECORDS SUMMARY | 2024-05-11 18:33 | XMS_ITS | Encounter Summary ---
Author Organization [facility] Address [address] [place] [address] Care Team Providers Care Truck Safety Inspector Name Role Phone Unavailable Primary Care Provider Unavailabl e Encounter Details Date Type Department Care Team ([facility] st Contact Info) Description 11/09/2015 [facility] Vitals Encounter [facility] OUTPATIENT CONVERSIONS [address] [place] [address] ProviderPeter MD [facility] [place] [phone] Social History Tobacco Use Types Packs/Day Years [...] - Inhaled Oxygen Concentration - - Weight 81.3 kg (179 lb 2 oz) 11/09/2015 3:01 PM EDT Height 165.1 cm (5' 5 ) 11/09/2015 3:01 PM EDT Body Mass Index 29.81 11/09/2015 3:01 PM EDT documented in this encounter Plan of Treatment Not on file documented as of this encounter Visit Diagnoses Not on filedocumented in this encounter
[2024-05-11 19:30] VITALS: BP 128/89; PULSE 81; RESP 19; TEMP 36.9; O2SAT 98; BMI 25.9
--- NOTE | 2024-05-11 19:47 | EXP.UTC ---
Discharge Plan Disposition Patient Disposition: Home, Self-Care Condition: Good Prescriptions Prescriptions: No Action gabapentin 800 mg tablet 800 mg PO TID furosemide 20 mg tablet See Rx Instructions .ROUTE .COMPLEX Rx Instructions: see rx instructions spironolactone 50 mg tablet See Rx Instructions .ROUTE .COMPLEX Rx Instructions: see rx instructions hydroxyzine HCl 10 mg tablet 10 mg PO DAILY Referrals Follow up/Referrals: Yonatan Graves [Primary Care Provider] - See instructions Activity Restrictions/Add. Instructions Additional Instructions/Restrictions: *Monitor Temp, Over the counter Motrin or Tylenol as directed/as needed Tylenol every 4 hours and Motrin every 6 hours (as long as your family doctor has told you that you can take it) for fever or pain. and straight to ER if unable to lower temp less than 101.0 after medication given *Warm salt water gargles may help to soothe the throat *Throat Lozenges? *Warm fluids like tea with honey may help to soothe the throat? *Sleep elevated *Humidifier/Vaporizer *Flonase 2 sprays in each nostril daily but be aware that it may take 2-3 days before you notice improvement *Bromfed may cause drowsiness. Know how it effects you (your child) before driving, caring for small child, or sending your child to school. Not other antihistamines/allergy medications while taking bromfed Your throat swab was sent for culture. Those results are typically sent to your primary care. Be sure to follow up in 2-3 days with your family doctor/primary care physician if no improvement so they can review those result and treat if necessary. If you don?t have a primary care doctor, I recommend you get one but in the mean time, you will have to return to a walk in clinic Follow up IMMEDIATELY for new or worsening symptoms or no Noticeable improvement over the next 48-72 hours. 911 for difficulty breathing or swallowing Clinical Impressions Clinical Impression: Sore throat (viral) Instructions Patient Instructions: Sore Throat Print Language Print Language: Azerbaijani Discharge ED Provider: Marylu Kuo [facility] HPI General Stated complaint: sore throat, cough, cough Mode of Arrival: Ambulatory Source of Information: Patient Limitations: No Limitations Time Seen by Provider: 05/11/24 19:47 Description of Symptoms (Recalled from Triage Doc. by RN): PATIENT C/O SORE THROAT X 2 DAYS HEENT Symptoms (Recalled from RN notes): Yes Resp Symptoms (Recalled from RN notes): No Skin Symptoms (Recalled from RN notes): No MS Symptoms (Recalled from RN notes): No Functional Status (Recalled from RN notes): WNL History of Present Illness Provider Complaint: Patient states that she has been having sore throat for the last couple of days States that son has similar symptoms and she is worried she may have strep throat Related Data Home Medications ?Medication ?Instructions ?Recorded ?Confirmed furosemide 20 mg tablet See Rx Instructions .Route .COMPLEX 11/12/23 05/11/24 gabapentin 800 mg tablet 800 mg PO TID 11/12/23 05/11/24 spironolactone 50 mg tablet See Rx Instructions .Route .COMPLEX 11/12/23 05/11/24 hydroxyzine HCl 10 mg tablet 10 mg PO DAILY 05/11/24 05/11/24 Allergies Allergy/AdvReac Type Severity Reaction Status Date / Time amoxicillin (AMOXICILLIN) Allergy Unknown Verified 11/12/23 08:38 morphine (MORPHINE) Allergy Unknown Verified 11/12/23 08:38 Penicillins (PENICILLINS) Allergy Unknown Verified 11/12/23 08:38 Worker's Comp Is this a Worker's Comp case?: No [facility] Disclaimer: The information contained in this section may have been updated after the patient was seen, as this information can be updated by other users. 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 Kidney stone Anxiety Seizure disorder Urinary tract infection Kidney stone Asthma Surgical History History of tonsillectomy History of appendectomy Social History Smoking Status: Former smoker tobacco type: cigarettes packs per day: 1 alcohol intake: never current occupational status: other Travel in the last 8 weeks: None ROS Obtained: Yes All systems reviewed & no additional complaints except as documented and Yes Systems reviewed as appropriate & no additional complaints except as documented Constitutional Constitutional: Reports system reviewed and no additional complaints, except as documented, Reports as per HPI, Denies body ache, Denies chills, Denies fever(s) and Denies headache(s) ENT Ears, Nose, Mouth, and Throat: Reports system reviewed and no additional complaints, except as documented, Reports as per HPI, Denies headache(s) and Reports sore throat Cardiovascular Cardiovascular: Reports system reviewed and no additional complaints, except as documented and Reports as per HPI Respiratory Respiratory: Reports system reviewed and no additional complaints, except as documented, Reports as per HPI, Denies shortness of breath and Denies cough Gastrointestinal Gastrointestingal: Reports system reviewed and no additional complaints, except as documented and as per HPI Genitourinary Female Genitourinary: Reports system reviewed and no additional complaints, except as documented and Reports as per HPI Musculoskeletal Musculoskeletal: Reports system reviewed and no additional complaints, except as documented and Reports as per HPI Neurologic Neurologic: Denies headache(s) Physical Exam General General appearance: alert and in no apparent distress ENT ENT exam: Present mucous membranes moist Expanded ENT Exam Throat exam: Present other (Pharyngeal erythema noted with PND) Respiratory Respiratory exam: Present normal lung sounds bilaterally; Absent respiratory distress or wheezes Cardiovascular Cardiovascular exam: Present regular rate, normal rhythm and normal heart sounds Abdominal Exam Abdominal exam: Present soft and normal bowel sounds; Absent distention Neurological Exam Neurological exam: Present alert, oriented X3 and normal gait Medical Decision Making Medical Records Screening: Per USPSTF and CDC recommendations, given the prevalence of disease in our region, it is our hospital?s policy to screen for HIV and viral Hepatitis for all patients aged 18 and over and those with ongoing risk factors. Ben Inquiry Pt receiving controlled substance: No Ben was queried for this patient: No Vital Signs: 05/11/24 19:30 Temperature 98.4 F Temperature Source Oral Pulse Rate [Left Brachial] 81 Respiratory Rate 19 Blood Pressure [Left Arm] 128/89 Blood Pressure Mean [Left Arm] 102 Blood Pressure Source [Left Arm] Automatic Cuff Blood Pressure Position [Left Arm] Sitting 02 Sat by Pulse Oximetry 98 Oxygen Delivery Method Room Air Lab Data Lab results reviewed: Yes I reviewed the patient's lab results.
[2024-05-11 19:51] LABS: UTC Strep Screen (Rapid) Negative (Negative)
[2024-05-11 20:03] VITALS: BP 128/89; PULSE 81; RESP 19; TEMP 36.9; O2SAT 98
== END 2024-05-11 20:04 | disposition home or self-care (01) ==
PROVIDERS: Emergency Provider Nurse Practitioner; PCP Internal Medicine
DX: J02.9 Acute pharyngitis, unspecified (principal); R05.9 Cough, unspecified
CPT/HCPCS: 87880; 99212; G0381

== ENCOUNTER 2024-05-19 10:11 | Emergency (ER) | payer OTHER, SELFPAY ==
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
--- OUTSIDE RECORDS SUMMARY | 2024-05-19 10:16 | XMS_ITS | Encounter Summary ---
[facility] Organization [facility] Address [address] [place] [id number] Care Team Providers Care Asset Manager Name Role Phone Kierra Guajardo MD Primary Care Provide r Reason for Referral * Diagnostic Imaging (Routine) - Authorized Specialty Diagnoses / Procedures Referred By Contac t Referred To Contact Obstetrics and Gynecology Diagnoses Amenorrhea Procedures US Non-ob Transvaginal Pao Hanley APRN 1260 [facility] [address] [place] [address] Phone: tel: fax: [facility] OBGYN [address] [place] [address] Phone: tel:[phone] fax: Referral ID Status Reason Start Date Expiration Date V isits Requested Visits Authorized [id number] Authorized 11/11/2023 11/10/2024 1 1 Reason for Visit * Reason Comments Annual New patient Encounter Details Date Type Department Care Team (Late st Contact Info) Description 11/11/2023 8:30 AM EDT Office Visit [facility] OBGYN [address] [place] [address] Pao Hanley APRN 1700 [facility] [address] [place] [address] Amenorrhea (Primary Dx); Women's annual routine gynecological examination Social History Tobacco Use Types Packs/Day Years Used Date Smoking Tobacco: Former Cigarettes Smokeless Tobacco: Never Tobacco Cessation:Counseling Given: Not Answered Alcohol Use Standard Drinks/Week Comments Not Currently 0 (1 standard drink = 0.6 oz pure alcohol) 4-6 wine coolers daily for several years [facility] Utilities Answer Date Recorded In the past 12 months has [facility] [employer], [employer], oil, or water [employer] threatened to shut off services in your [...] medical care, and heating? Patient declined 08/05/2023 [facility] of Occupat ional Health - Occupational Stress [...] GED or equivalent No 08/05/2023 Preferred Language Israeli 08/05/2023 PHQ-2 Answer Date Recorded Retired PHQ-9: [...] this encounter Progress Notes * Pao Hanley, POST TRONIC MACHINE OPERATOR - 11/11/2023 8:30 AM EDT Images from [...] discuss the following complaints today: none Additional CHANNEL PROCESS PLANT OPERATOR History contraceptive methods: Condoms Desires to: do [...] historical information as entered above. Pao Neumann, POST TRONIC MACHINE OPERATOR Objective BP 110/72 Ht 165.1 cm (65 [...] good candidate for progestins to stimulate menses. SUPERVISOR PARTIAL DENTURE DEPARTMENT annual well woman exam. Reviewed pap guidelines. [...] Lab Report [facility] [address] ?[place], [place] ??[address] or [phone] Cristóbal Calvo M.D., Waiter/Waitress Second Class PATIENT NAME ? LABORATORY NO. 651 ??TATIANA WADE ? [id number] ? AGE ? SEX ??SSN ? CLIENT REF # [facility] ([facility]LA) ?33 ?1990 ??F ?[id number] ?? [id number] Miguel A DEJESUS ?REQUESTING M.D. ? ATTENDING M.D. ? COPY TO. KARLA, SIVA [address] ? PAO HANLEY DATE COLLECTED ?DATE RECEIVED [...] of chlamydial and gonococcal disease using the [place] system. DYE AND CHEMICAL COORDINATOR: ?SDS, CT (ASCP) CPT CODES: ??[id number], [id number], 09620, [id number] 11/14/2023 9:54 AM EDT [facility] ThinPrep Vial Cervix uteri structure / Unknown Collection / Unknown 11/11/2023 11:36 AM EDT 11/11/2023 11:36 AM EDT us Pao Falcon Talon POST TRONIC MACHINE OPERATOR PATHOLOGY/CYTOLOGY ORDERA BLES Final Result [facility]
[address] [place] [address], documented in this encounter Visit Diagnoses Diagnosis Amenorrhea- Primary Absence of menstruation Women's annual routine gynecological examination documented in this encounter Additional Health Concerns Assessment Noted Time PHQ-2 Depression Total Score: 2 08/05/19 24 9:47 AM EST documented as of this encounter Care Teams Asset Manager Relationship Specialty Start Date End Date Kierra Guajardo MD [address] [place] [address] PCP - General Internal Medicine 10/23/23 documented as of this encounter
--- OUTSIDE RECORDS SUMMARY | 2024-05-19 10:16 | XMS_ITS | Clinical Summary ---
Author Organization [facility] Address [address] [place] [address] Care Team Providers Care Lode Miner Blasting Name Role Phone Kierra Guajardo MD Primary [...] 4-6 wine coolers daily for several years [facility] Utilities Answer Date Recorded In the past 12 months has e [employer], gas, oil, or water [employer] threatened to shut off services in your [...] medical care, and heating? Patient declined 08/05/2023 [facility] of Occupat ional Health - Occupational [...] GED or equivalent No 08/05/2023 Preferred Language Kittitian 08/05/2023 PHQ-2 Answer Date Recorded Retired PHQ-9: [...] Tdap) 2009 ANNUAL PHYSICAL 11/11/2023 INFLUENZA VACCINE 12/22/2023 04/19/2010 COVID-19 Vaccine (1 - 2023-2 5 [...] Lab Report [facility] [address] ?[place], [place] ??[address] or [phone] Cristóbal Calvo M.D., Community Health Advisor PATIENT NAME ? LABORATORY NO. 651 ??TATIANA WADE ? [id number] ? AGE ? SEX ??SSN ? CLIENT REF # [facility] ([facility]) ?33 ?1990 ??F ?[id number] ?? [id number] Miguel A DEJESUS ?REQUESTING M.D. ? ATTENDING M.D. ? COPY TO. KARLA, SIVA [address] ? PAO COSTA DATE COLLECTED ?DATE RECEIVED [...] of chlamydial and gonococcal disease using the [place] system. PEARL CUTTER: ?SDS, CT (ASCP) CPT CODES: ??22051, 30803, 47706, [id number] 11/14/2023 9:54 AM EDT [facility] ThinPrep Vial Cervix uteri structure / Unknown Collection / Unknown 11/11/2023 11:36 AM EDT 11/11/2023 11:36 AM EDT Pao Falcon Talon MACARONI PRESS OPERATOR PATHOLOGY/CYTOLOGY ORDERA BLES Final Result [facility]
[address] [place] [address], [place] [phone] * (ABNORMAL) Hepatitis Panel, Acute (08/02/2023 4:57 AM EST) Hepatitis B Surface Ag Non-Reacti ve Non-Reacti ve 08/02/2023 6:38 AM EST [facility] Hep A IgM Non-Reacti ve Non-Reacti ve 08/02/2023 6:38 AM EST [facility] Hep B C IgM Non-Reacti ve Non-Reacti ve 08/02/2023 6:38 AM EST [facility] Hepatitis C Ab Reactive(A ) Non-Reacti ve 08/02/2023 6:38 AM EST [facility] Blood Venipuncture / Unknown 08/02/2023 4:57 AM EST 08/02/2023 5:15 AM EST [facility] - 08/02/2023 6:38 AM EST Results may be falsely decreased if patient taking Biotin. Jasmin Crooks MD LAB BLOOD ORDERABLES Final Result [facility]
[address] [place] [address], [place] [phone] from Last 3 Months or Most Recently Relevant to Health Maintenance Insurance [facility] [place]AN [place] Advance Directives * CPR (Attempt to Resuscitate) (Latest Code Status on File) Date Activated Date Inactivated Comments 08/01/2023 11:18 PM 08/05/2023 4:05 PM Question Answer Comments Code Status (Patient has no pulse and is not breathing): CPR (Attempt to Resuscitate) Medical Interventions (Patie nt has pulse or is breathing): Full Support Care Teams Lode Miner Blasting Relationship Specialty Start Date End Date Kierra Guajardo MD [address] [place] [address] PCP - General Internal Medicine 10/23/23
--- OUTSIDE RECORDS SUMMARY | 2024-05-19 10:17 | XMS_ITS | Encounter Summary ---
Author Organization [facility] Address [address] [place] [address] Care Team Providers Care Bankruptcy Paralegal Name Role Phone Yonatan Graves DO Primary Care Provider Farida Ortega THREAT ANALYST Unavailable [phone] Source Comments This information has been disclosed [...] release of HIV test results or diagnoses. [id number] Encounter Details Date Type Department Care Team (Late st Contact Info) Description 02/05/2024 Telephone PROVIDER GI [address] [place] [address] Mario Ramirez MD [address] [place] [address] Social History Tobacco Use Types Packs/Day Years [...] documented in this encounter Plan of Treatment Upcoming Encounters Date Type Department Care Team (Late st Contact Info) Description 07/28/2024 12:31 PM EST Hospital Encounter [facility] ENDOSCOPY [address] [place] [address] Mario Ramirez MD [address] [place] [address] 07/28/2024 12:31 PM EST - 07/28/2024 1:01 PM EST Surgery [facility] ENDOSCOPY [address] [place] [address] Mario Ramirez MD [address] [place] [address] EGD Scheduled Procedures Name Priority Associated Diagnoses Date/Ti va EGD 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) 07/28/2024 12:31 PM EST documented as of this encounter Visit Diagnoses Not on filedocumented in this encounter Additional Health Concerns Assessment Noted Time PHQ-9 Depression Total Score: 13 024 11:52 AM EDT documented as of this encounter Care Teams Bankruptcy Paralegal Relationship Specialty Start Date End Date Yonatan Graves DO [address] [place] [address] PCP - General 09/02/23 Farida Ortega, THREAT ANALYST [address] [address] Referring Physician Gastroenterology 09/02/23 documented as of this encounter
--- OUTSIDE RECORDS SUMMARY | 2024-05-19 10:17 | XMS_ITS | Encounter Summary ---
Author Organization [facility] Address [facility] [place] [address] Care Team Providers Care See Wheeler Name Role Phone Yonatan Graves DO Primary Care Provider Farida Ortega PRODUCTION SUPERINTENDENT Unavailable [phone] Source Comments This information has been disclosed [...] release of HIV test results or diagnoses. [id number] Reason for Referral * Imaging/Cardiovascular Scan (Routine) - Pending Review Specialty Diagnoses / Procedures Referred By Roselyn mccollum Referred To Contact Radiology Diagnoses 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) Procedures MRI Abdomen W and WO contrast Mario Ramirez MD [address] [place] [address] Phone: tel: fax: Referral ID Status Reason Start Date Expiration Date V isits Requested Visits Authorized [id number] Pending Review 05/12/2024 11/08/2024 1 1 Encounter Details Date Type Department Care Team (Latest Contact Info) Description 05/12/2024 8:40 AM EST Office Visit [facility] Gastroenterology at [address] [place] [address] Rahat Peres MD [address] [place] [address] Mario Ramirez MD [address] [place] [address] 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 Social History Tobacco Use Types Packs/Day Years Used Date Smoking Tobacco: Former Cigarettes 0.3 1.2 0 07/22/2014 - 07/22/2015 Smokeless Tobacco: Never [...] Sign Reading Time Taken Comments Blood Pressure 98/60 05/12/2024 9:01 AM EST Pulse 93 05/12/2024 9:01 AM EST Temperature - - Respiratory Rate - - Oxygen Saturation 100% 05/12/2024 9:01 AM EST Inhaled Oxygen Concentration 100% 05/12/2024 9 :01 AM EST Weight 70.8 kg (156 lb) 05/12/2024 9:01 AM EST Height 165.1 cm (5' 5 ) 05/12/2024 9:01 AM EST Body Mass Index 25.96 05/12/2024 9:01 AM EST documented in this encounter Patient Instructions * Patient Instructions* Mario Ramirez MD - 05/12/2024 8:40 AM EST Plan: 1. Update MELD labs today. 2. Immune to Hep A. Needs Hep B vaccination. Declines. 3. Continue HCC surveillance with AFP and ultrasound every 6 months. MRI due in July 2024. 4. EGD on annual basis. Please schedule with me. 5. Continue 2000 mg low sodium diet. Recommend diet high in protein. 6. Continue current diuretics - lasix 60 mg BID and aldactone 150 mg BID. 7. No evidence of HE. 8. Recommend regular vaccinations with your PCP including flu, pneumonia, and shingles vaccination. 9. Please avoid non-steroidal anti-inflammatory medications such as ibuprofen (Advil), naproxen. Also, please limit acetaminophen to 2000 mg daily. 10. Please do not drink any alcohol. 11. Please continue to exercise - such as walking - 3-4 times a week to maintain muscle mass. 12. Return in 3 months. documented in this encounter Plan of Treatment Upcoming Encounters Date Type Department Care Team (Late st Contact Info) Description 07/28/2024 12:31 PM EST Hospital Encounter [facility] ENDOSCOPY [address] [place] [phone] Mario Ramirez MD [address] [place] [address] 07/28/2024 12:31 PM EST - 07/28/2024 1:01 PM EST Surgery [facility] ENDOSCOPY [address] [place] [address] Mario Ramirez MD [address] [place] [address] EGD Scheduled Orders Name Type Priority Associated Diagnoses Orde r Schedule MRI Abdomen W and WO contrast Imaging Routine 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) 1 Occurrences starting 05/12/2024 until 05/12/2025 Scheduled Procedures Name Priority Associated Diagnoses Date/Ti me EGD 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) 07/28/2024 12:31 PM EST documented as of this encounter Results * AFP tumor marker (05/12/2024 10:08 AM EST) AFP-Tumor Marker 9.0 0.0 - 9.0 ng/mL 05/12/2024 8:18 PM EST [facility] Serum 05/12/2024 10:0 8 AM EST 05/12/2024 4:11 PM EST Narrative [facility] - 05/12/2024 8:18 PM EST The testing method for AFP is a chemiluminescent immunoassay manufactured by [employer] Concentrations of AFP obtained by different assay methods or kits may vary and cannot be used interchangeably. AFP results cannot be interpreted as absolute evidence of the presence or absence of malignant disease. us Mario Ramirez MD LAB BLOOD ORDERABLES Final Re sult [facility] [address] * Phosphatidylethanol Confirmation, B (05/12/2024 10:08 AM EST) PETH 16:0/18.1 (POPETH) <10 Cutoff: 10 ng/mL 05/16/2024 2:03 PM EST [facility] Comment: Phosphatidylethanol (PEth) homologues result [...] PETH 16:0/18.2 (PLPETH) <10 Cutoff: 10 ng/mL 05/16/2024 2:03 PM EST [facility] Comment: PEth 16:0/18:2 (PLPEth) Reference ranges are not well established PEth Interpretation Negative. 05/16 2:03 PM EST [facility] Comment: ADDITIONAL INFORMATION This report is intended for use in clinical monitoring and management of patients. ??It is not intended for use in employment-related testing. This test was developed and its performance characteristics determined by [facility] in a manner consistent with CLIA requirements. This test has not been cleared or approved by the U.S. Food and Drug Administration. Test Performed by: [facility] [address] [place] [address] Gold Nib Grinder: Alexia David Ph.D.; CLIA# [id number] Whole Blood 05/12/2024 10:0 8 AM EST 05/16/2024 2:03 PM EST us Mario Ramirez MD LAB BLOOD ORDERABLES Final Re sult [facility] [address] * (ABNORMAL) Hepatic Function Panel (05/12/2024 10:08 AM EST) Total Bilirubin 2.7(H) 0.0 - 1.5 mg/dL 05/12/2024 5:03 PM EST [facility] Bilirubin, Direct 0.99(H) 0.00 - 0.40 mg/dL 05/12/2024 5:03 PM EST [facility] AST 61(H) 13 - 39 U/L 05/12/2024 5:03 PM EST [facility] ALT 36 7 - 52 U/L 05/12/2024 5:03 PM EST [facility] Alkaline Phosphatase 194(H) 36 - 125 U/L 05/12/2024 5:03 PM EST [facility] Total Protein 6.8 6.4 - 8.9 g/dL 05/12/2024 5:03 PM EST [facility] Albumin 4.0 3.5 - 5.7 g/dL 05/12/2024 5:03 PM EST [facility] Bilirubin, Indirect 1.71(H) 0.00 - 1.10 mg/dL 05/12/2024 5:03 PM EST [facility] Plasma 05/12/2024 10:0 8 AM EST 05/12/2024 4:11 PM EST Mario Ramirez MD LAB BLOOD ORDERABLES Final Re sult Performing Organization Address [facility] de Phone Number [facility] [address] [facility]. [address] * (ABNORMAL) Protime-INR (05/12/2024 10:08 AM EST) Protime 16.4(H) 12.1 - 15.1 seconds 05/12/2024 2:56 PM EST [facility] INR 1.3(H) 0.9 - 1.1 05/12/2024 2:56 PM EST [facility] Comment: RECOMMENDED THERAPEUTIC RANGES USING INR : ?Stable oral anticoagulant therapy: ? 2.0 - 3.0 ?Mechanical prosthetic heart valve: ? 2.5 - 3.5 ?Recurrent acute myocardial infarction: ? 2.5 - 3.5 Plasma 05/12/2024 10:0 8 AM EST 05/12/2024 2:13 PM EST Narrative [facility] - 05/12/2024 2:56 PM EST Container type->Blue top Mario Ramirez MD LAB BLOOD ORDERABLES Final Re sult Performing Organization Address [facility] Co de Phone Number [facility] [address] [facility]. [address] * (ABNORMAL) CBC (05/12/2024 10:08 AM EST) WBC 3.7(L) 3.8 - 10.8 10E3/uL 05/12/2024 2:20 PM EST [facility] RBC 3.50(L) 3.80 - 5.10 10E6/uL 05/12/2024 2:20 PM EST [facility] Hemoglobin 11.9 11.7 - 15.5 g/dL 05/12/2024 2:20 PM EST [facility] Hematocrit 33.5(L) 35.0 - 45.0 % 05/12/2024 2:20 PM EST [facility] MCV 95.7 80.0 - 100.0 fL 05/12/2024 2:20 PM EST [facility] MCH 34.0(H) 27.0 - 33.0 pg 05/12/2024 2:20 PM EST [facility] MCHC 35.5 32.0 - 36.0 g/dL 05/12/2024 2:20 PM EST [facility] RDW 13.5 11.0 - 15.0 % 05/12/2024 2:20 PM EST [facility] Platelets 94(L) 140 - 400 10E3/uL 05/12/2024 2:20 PM EST [facility] MPV 9.0 7.5 - 11.5 fL 05/12/2024 2:20 PM [facility] Whole Blood 05/12/2024 10:0 8 AM EST 05/12/2024 2:10 PM EST us Mario Ramirez MD LAB BLOOD ORDERABLES Final Re sult [facility] [address] [place] [id number] * (ABNORMAL) Renal Function Panel w/EGFR (05/12/2024 10:08 AM EST) Sodium 135 133 - 146 mmol/L 05/12/2024 5:03 PM EST [facility] Potassium 3.6 3.5 - 5.3 mmol/L 05/12/2024 5:03 PM EST [facility] Chloride 98 98 - 110 mmol/L 05/12/2024 5:03 PM EST [facility] CO2 26 21 - 33 mmol/L 05/12/2024 5:03 PM EST [facility] Anion Gap 11 3 - 16 mmol/L 05/12/2024 5:03 PM EST [facility] BUN 7 7 - 25 mg/dL 05/12/2024 5:03 PM EST [facility] Creatinine 0.77 0.60 - 1.30 mg/dL 05/12/2024 5:03 PM EST [facility] Glucose 90 70 - 100 mg/dL 05/12/2024 5:03 PM EST [facility] Calcium 8.4(L) 8.6 - 10.3 mg/dL 05/12/2024 5:03 PM EST [facility] Phosphorus 3.1 2.1 - 4.7 mg/dL 05/12/2024 5:03 PM EST [facility] Albumin 4.0 3.5 - 5.7 g/dL 05/12/2024 5:03 PM EST [facility] Osmolality, Calculated 278 278 - 305 mOsm/kg 05/12/2024 5:03 PM EST [facility] EGFR >90 05/12/2024 5:03 PM EST [facility] Comment: As of 2021, the [...] ??Usama C, Hernandez M, Chato DC, Suzy NEELY, Jyoti GARDUNO, Nas LINARES, et al. ??A [...] disease. ?For additional information: ?? [email or web address] Plasma 05/12/2024 10:0 8 AM EST 05/12/2024 4:11 PM EST us Mario Ramirez MD LAB BLOOD ORDERABLES Final Re sult [facility] [address] [place] [address], [facility] documented in this encounter Visit Diagnoses Diagnosis 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)- Primary 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) 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) documented in this encounter Additional Health Concerns Assessment Noted Time PHQ-9 Depression Total Score: 13 024 11:52 AM EDT documented as of this encounter Care Teams See Wheeler Relationship Specialty Start Date End Date Yonatan Graves DO [address] [place] [address] PCP - General 09/02/23 Farida Ortega, PRODUCTION SUPERINTENDENT [address] [place] [address] Referring Physician Gastroenterology 09/02/23 documented as of this encounter
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
--- OUTSIDE RECORDS SUMMARY | 2024-05-19 10:17 | XMS_ITS | Encounter Summary ---
Author Organization [facility] Address [facility] [place] [address] Care Team Providers Care Feed Handler Name Role Phone Yonatan Graves DO Primary Care Provider Farida Ortega ON SITE SERVICES SPECIALIST Unavailable [phone] Source Comments This information has been disclosed [...] release of HIV test results or diagnoses. [id number] Reason for Visit * Reason Comments Alcoholic cirrhosis of liver with ascite s Encounter Details Date Type Department Care Team (Latest Contact Info) Description 01/15/2024 11:00 AM EDT Office Visit [facility] [address] [place] [phone] Agustin Hurt MD Alcoholic cirrhosis of liver [...] Hepatology Clinic Note Name: Mindy Wade CSN: [id number] Referring Physician: Hilda Shepherd MD Chief Complaint: [...] diagnosed with liver disease. She then saw [facility] transplant center in October 2022 for [...] Patient was evaluated by transplant social media strategist at in December 2022, where it was [...] Jul 2023 and then underwent detox at [facility] The patient states that she used to only socially drink alcohol and alcohol use started maybe 5 years ago. She said over the time she started to increase her alcohol intake up to 6 wine coolers a day. From the social work at [facility] it was felt that the patient [...] PHG Interval History She saw our transplant social media strategist and it was recommended that she demonstrate [...] try to get this scheduled here at [facility] - Immunizations: Immune to Hepatitis A . [...] high. Based on the evaluation from transplant social media strategist at it was felt that the patient [...] evaluation. She was seen by our transplant social media strategist here at and patient needed to demonstrate [...] liver pathology. Agustin Hurt MD Transplant Hepatology [phone] (p) documented in this encounter Plan of Treatment Upcoming Encounters Date Type Department Care Team (Late st Contact Info) Description 07/28/2024 12:31 PM EST Hospital Encounter [facility] ENDOSCOPY [address] [facility] [place] [phone] Mario Ramirez MD [address] [place] [phone] 07/28/2024 12:31 PM EST - 07/28/2024 1:01 PM EST Surgery [facility] ENDOSCOPY [address] [place] [phone] Mario Ramirez MD [address] [place] [phone] EGD Scheduled Procedures Name Priority Associated Diagnoses Date/Ti me EGD 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) 07/28/2024 12:31 PM EST documented as of this encounter Results * Phosphatidylethanol Confirmation, B (02/04/2024 4:00 PM EDT) PETH 16:0/18.1 (POPETH) <10 Cutoff: 10 ng/mL 02/07/2024 11:19 AM EDT [facility] Comment: Phosphatidylethanol (PEth) homologues result interpretation [...] developed and its performance characteristics determined by [facility] in a manner consistent with CLIA requirements. This test has not been cleared or approved by the U.S. Food and Drug Administration. Test Performed by: [facility] [address] [place] [address] Houseperson: Alexia David Ph.D.; CLIA# [id number] Whole Blood 02/04/2024 4:00 PM EDT 02/07/2024 11:19 AM EDT Agustin Hurt MD LAB BLOOD ORDERABLES Final Res ult Performing Organization Address [facility]/ZIP Co de Phone Number [facility] [address] [facility] * AFP tumor marker (02/04/2024 4:00 PM EDT) [facility] AFP-Tumor Marker 8.7 0.0 - 9.0 ng/mL 02/04/2024 5:45 PM EDT [facility] Serum 02/04/2024 4:00 PM EDT 02/04/2024 5:13 PM EDT Narrative [facility] - 02/04/2024 5:45 PM EDT The testing method for AFP is a chemiluminescent immunoassay manufactured by [employer] Concentrations of AFP obtained by different assay methods or kits may vary and cannot be used interchangeably. AFP results cannot be interpreted as absolute evidence of the presence or absence of malignant disease. Agustin Hurt MD LAB BLOOD ORDERABLES Final Res ult Performing Organization Address City/[facility]/ZIP Co de Phone Number [facility] [address] * (ABNORMAL) Renal Function Panel w/EGFR (02/04/2024 4:00 PM EDT) Sodium 125(L) 133 - 146 mmol/L 02/04/2024 5:44 PM EDT [facility] Potassium 4.2 3.5 - 5.3 mmol/L 02/04/2024 5:44 PM EDT [facility] Chloride 94(L) 98 - 110 mmol/L 02/04/2024 5:44 PM EDT [facility] CO2 22 21 - 33 mmol/L 02/04/2024 5:44 PM EDT [facility] Anion Gap 9 3 - 16 mmol/L 02/04/2024 5:44 PM EDT [facility] BUN 14 7 - 25 mg/dL 02/04/2024 5:44 PM EDT [facility] Creatinine 0.95 0.60 - 1.30 mg/dL 02/04/2024 5:44 PM EDT [facility] Glucose 127(H) 70 - 100 mg/dL 02/04/2024 5:44 PM EDT [facility] Calcium 8.7 8.6 - 10.3 mg/dL 02/04/2024 5:44 PM EDT [facility] Phosphorus 3.4 2.1 - 4.7 mg/dL 02/04/2024 5:44 PM EDT [facility] Albumin 3.4(L) 3.5 - 5.7 g/dL 02/04/2024 5:44 PM EDT [facility] Osmolality, Calculated 262(L) 278 - 305 mOsm/kg 02/04/2024 5:44 PM EDT [facility] EGFR 81 02/04/2024 5:44 PM EDT [facility] Comment:As of 2021, the estimated [...] will be reported as >90mL/min/1.73m2. Reference: Usama Ruiz, Hernandez M, Chato DC, Suzy ND, Jyoti [place], Nas [place], et al. A Unifying Approach for GFR Estimation: Recommendations of the NKF-ASN Task Force on Reassessing the inclusion of Race in Diagnosing Kidney Disease. Am J Kidney Dis. 2020. Plasma 02/04/2024 4:00 PM EDT 02/04/2024 5:15 PM EDT Agustin Hurt MD LAB BLOOD ORDERABLES Final Res ult Performing Organization Address [facility]/ZIP Co de Phone Number [facility] [address] * (ABNORMAL) Hepatic Function Panel (02/04/2024 4:00 PM EDT) Total Bilirubin 6.3(H) 0.0 - 1.5 mg/dL 02/04/2024 5:44 PM EDT [facility] Bilirubin, Direct 3.04(H) 0.00 - 0.40 mg/dL 02/04/2024 5:44 PM EDT [facility] AST 93(H) 13 - 39 U/L 02/04/2024 5:44 PM EDT [facility] ALT 83(H) 7 - 52 U/L 02/04/2024 5:44 PM EDT [facility] Alkaline Phosphatase 198(H) 36 - 125 U/L 02/04/2024 5:44 PM EDT [facility] Total Protein 6.8 6.4 - 8.9 g/dL 02/04/2024 5:44 PM EDT [facility] Albumin 3.4(L) 3.5 - 5.7 g/dL 02/04/2024 5:44 PM EDT [facility] Bilirubin, Indirect 3.26(H) 0.00 - 1.10 mg/dL 02/04/2024 5:44 PM EDT [facility] Plasma 02/04/2024 4:00 PM EDT 02/04/2024 5:15 PM EDT Agustin Hurt MD LAB BLOOD ORDERABLES Final Res ult Performing Organization Address City/[facility]/ZIP Co de Phone Number [facility] [address] * (ABNORMAL) Protime-INR (02/04/2024 4:00 PM EDT) [facility] Protime 17.2(H) 12.1 - 15.1 seconds 02/04/2024 5:41 PM EDT [facility] INR 1.3(H) 0.9 - 1.1 02/04/2024 5:41 PM EDT [facility] Comment: RECOMMENDED THERAPEUTIC RANGES USING INR : ?Stable oral anticoagulant therapy: ? 2.0 - 3.0 ?Mechanical prosthetic heart valve: ? 2.5 - 3.5 ?Recurrent acute myocardial infarction: ? 2.5 - 3.5 Plasma 02/04/2024 4:00 PM EDT 02/04/2024 5:13 PM EDT us Agustin Hurt MD LAB BLOOD ORDERABLES Final Res ult [facility] [address] [facility] [place] [address], [facility] * (ABNORMAL) CBC (02/04/2024 4:00 PM EDT) [facility] WBC 6.1 3.8 - 10.8 10E3/uL 02/04/2024 5:24 PM EDT [facility] RBC 2.86(L) 3.80 - 5.10 10E6/uL 02/04/2024 5:24 PM EDT [facility] Hemoglobin 10.6(L) 11.7 - 15.5 g/dL 02/04/2024 5:24 PM EDT [facility] Hematocrit 29.7(L) 35.0 - 45.0 % 02/04/2024 5:24 PM EDT [facility] MCV 103.9(H) 80.0 - 100.0 fL 02/04/2024 5:24 PM EDT [facility] MCH 37.1(H) 27.0 - 33.0 pg 02/04/2024 5:24 PM EDT [facility] MCHC 35.8 32.0 - 36.0 g/dL 02/04/2024 5:24 PM EDT [facility] RDW 15.3(H) 11.0 - 15.0 % 02/04/2024 5:24 PM EDT [facility] Platelets 93(L) 140 - 400 10E3/uL 02/04/2024 5:24 PM EDT [facility] MPV 9.3 7.5 - 11.5 fL 02/04/2024 5:24 PM EDT [facility] Whole Blood 02/04/2024 4:00 PM EDT 02/04/2024 5:14 PM EDT us Agustin Hurt MD LAB BLOOD ORDERABLES Final Res ult Performing Organization Address City/State/[facility] Co de Phone Number [facility] [address] documented in this encounter Visit Diagnoses [...] documented as of this encounter Care Teams Feed Handler Relationship Specialty Start Date End Date Yonatan Graves DO [address] [place] [address] PCP - General 09/02/23 Farida Ortega NP [address] [place] [phone] Referring Physician Gastroenterology 09/02/23 documented as of this encounter
--- OUTSIDE RECORDS SUMMARY | 2024-05-19 10:17 | XMS_ITS | Encounter Summary ---
Author Organization [facility] Address [address] [place] [address] Care Team Providers Care Scrub Wheel Operator Name Role Phone Provider, No Known Primary Care Provider [phone] Reason for Visit * Reason Comments Alcohol Problem * Auth/Cert (Routine) Specialty Diagnoses / Procedures Referred By Roselyn mccollum Referred To Contact Diagnoses Chemical dependency Chemical Dependency Referral ID Status Reason Start Date Expiration Date Visits Re quested Visits Authorized [id number] 1 1 Encounter Details Date Type Department Care Team (Late st Contact Info) Description 08/01/2023 6:53 PM EST - 08/01/2023 11:10 PM EST Emergency [facility] EMERGENCY DEPARTMENT [address] [place] [address] Nilson Joseph MD [address] [facility] [address] [place] [address] -[phone] (Work) Aleyda Dukes MD [address] [facility] [address] [place] [address] Alcohol abuse (Primary Dx); End stage liver disease Discharge Disposition: Psychiatric Hospital or Unit (DC - External or Congregational) Social History Tobacco Use Types Packs/Day Years [...] appointment for PHP or IOP program with [facility]. On concluding phone call, pt states she [...] with end-stage liver disease and follows with [facility] for this. She states for at [...] her liver failure. [facility] due to [facility] and [...] admission to the detox unit at the [facility]. Initially the patient told us that she is not interested in going to the [facility] for medical detox. She does not want [...] during this visit. Aleyda Dukes MD 08/01/23 4627 documented in this encounter Plan of Treatment [...] Seen, 0-2 /HPF 08/01/2023 9:35 PM EST [facility] WBC, UA 0-2 None Seen, 0-2 /HPF 08/01/2023 9:35 PM EST [facility] Bacteria, UA None Seen None Seen /HPF 08/01/2023 9:35 PM EST [facility] Squamous Epithelial Cells, UA 3-6(A) None Seen, 0-2 /HPF 08/01/2023 9:35 PM EST [facility] Hyaline Casts, UA None Seen None Seen /LPF 08/01/2023 9:35 PM EST [facility] Methodology Manual Light Microscopy 08/01/2023 9:35 PM EST [facility] Urine Urine specimen obtained by clean catch procedure / Unknown Collection / Unknown 08/01/2023 9:00 PM EST 08/01/2023 9:03 PM EST Brynn CRUZ URINE ORDERABLES Final Result [facility]
[address] [place] [id number], [phone] * Fentanyl, Urine - Urine, Clean Catch (08/01/2023 9:00 PM EST) Fentanyl, Urine Negative Negative 08/01/2023 9:16 PM EST [facility] Urine Urine specimen obtained by clean catch procedure / Unknown Collection / Unknown 08/01/2023 9:00 PM EST 08/01/2023 9:03 PM EST [facility] - 08/01/2023 9:16 PM EST Negative [...] ? Brynn CRUZ URINE ORDERABLES Final Result [facility]
[address] [place] [address], [phone] * (ABNORMAL) Urine Drug Screen - Urine, Clean Catch (08/01/2023 9:00 PM EST) THC, Screen, Urine Positive(A) Negative 08/01 9:18 PM EST [facility] Phencyclidine (PCP), Urine Negative Negative 08/01/2023 9:18 PM EST [facility] Cocaine Screen, Urine Negative Negative 08/01/2023 9:18 PM EST [facility] Methamphetamine, Ur Negative Negative 08/01/2023 9:18 PM EST [facility] Opiate Screen Negative Negative 08/01/2023 9:18 PM EST [facility] Amphetamine Screen, Urine Negative Negative 08/01/2023 9:18 PM EST [facility] Benzodiazepine Screen, Urine Negative Negative 08/01/2023 9:18 PM EST [facility] Tricyclic Antidepressants Screen Negative Negative 08/01/2023 9:18 PM EST [facility] Methadone Screen, Urine Negative Negative 08/01/2023 9:18 PM EST [facility] Barbiturates Screen, Urine Negative Negative 08/01/2023 9:18 PM EST [facility] Oxycodone Screen, Urine Negative Negative 08/01/2023 9:18 PM EST [facility] Buprenorphine, Screen, Urine Negative Negative 08/01/2023 9:18 PM EST [facility] Urine Urine specimen obtained by clean catch procedure / Unknown Collection / Unknown 08/01/2023 9:00 PM EST 08/01/2023 9:03 PM EST [facility] - 08/01/2023 9:18 PM EST Cutoff [...] ?? Brynn CRUZ URINE ORDERABLES Final Result [facility]
[address] [place] [address], [place] [phone] * (ABNORMAL) Urinalysis With Microscopic If Indicated (No Culture) - Urine, Clean Catch (08/01/2023 9:00 PM EST) Color, UA Dark Yellow(A) Yellow, Straw 08/01/2023 9:24 PM EST [facility] Appearance, UA Clear Clear 08/01/2023 9:24 PM EST [facility] pH, UA 7.5 5.0 - 8.0 08/01/2023 9:24 PM [facility] Specific [place], UA 1.009 1.005 - 1.030 08/01/2023 9:24 PM EST [facility] Glucose, UA Negative Negative 08/01/2023 9:24 PM EST [facility] Ketones, UA Negative Negative 08/01/2023 9:24 PM EST [facility] Bilirubin, UA Small (1+)(A) Negative 08/01/2023 9:24 PM [facility] Blood, UA Trace(A) Negative 08/01/2023 9:24 PM [facility] Protein, UA Negative Negative 08/01/2023 9:24 PM EST [facility] Leuk Esterase, UA Negative Negative 08/01/2023 9:24 PM [facility] Nitrite, UA Negative Negative 08/01/2023 9:24 PM [facility] Urobilinogen, UA 1.0 E.U./dL 0.2 - 1.0 E.U./dL 08/01/2023 9:24 PM [facility] Urine Urine specimen obtained by clean catch procedure / Unknown Collection / Unknown 08/01/2023 9:00 PM EST 08/01/2023 9:03 PM EST us Brynn CRUZ URINE ORDERABLES Final Result [facility]
[address] [facility] [place], [place] [address], [phone] * , Urine - Urine, Clean Catch (08/01/2023 9:00 PM EST) HCG, Urine QL Negative Negative 08/01/2023 9:13 PM EST [facility] Urine Urine specimen obtained by clean catch procedure / Unknown Collection / Unknown 08/01/2023 9:00 PM EST 08/01/2023 9:03 PM EST Narrative [facility] - 08/01/2023 9:13 PM EST Diluted specimens may cause false negative results. us Brynn CRUZ URINE ORDERABLES Final Result [facility]
1 [place] [address], [phone] * ECG 12 Lead Tachycardia (08/01/2023 [...] ECG ORDERABLES Final Result Performing Organization Address [facility] de Phone Number ECG * Ammonia (08/01/2023 7:47 PM EST) Ammonia 47 11 - 51 umol/L 08/01/2023 8:13 PM EST [facility] Blood Venipuncture / Unknown 08/01/2023 7:47 PM EST 08/01/2023 7:50 PM EST Brynn CRUZ LAB BLOOD ORDERABLES Final Resul t Performing Organization Address [facility] [facility] de Phone Number [facility]
1 [place] [address], [place] [phone] * aPTT (08/01/2023 7:47 PM EST) PTT 34.3 26.5 - 34.5 seconds 08/01/2023 8:27 PM EST [facility] Blood Venipuncture / Unknown 08/01/2023 7:47 PM EST 08/01/2023 7:50 PM EST Narrative [facility] - 08/01/2023 8:27 PM EST PTT Heparin Therapeutic Range: ??59 - 95 seconds us Brynn CRUZ LAB BLOOD ORDERABLES Final Resul t Performing Organization Address [facility] [place] [facility]/ZIP Co de Phone Number [facility]
[address] [place] [address], [place] [phone] * (ABNORMAL) Protime-INR (08/01/2023 7:47 PM EST) Protime 21.7(H) 12.1 - 14.7 Seconds 08/01/2023 8:27 PM EST [facility] INR 1.81(H) 0.90 - 1.10 08/01/2023 8:27 PM EST [facility] Blood Venipuncture / Unknown 08/01/2023 7:47 PM EST 08/01/2023 7:50 PM EST Narrative [facility] - 08/01/2023 8:27 PM EST Suggested INR therapeutic range for stable oral anticoagulant therapy: Low Intensity therapy: ?? 1.5-2.0 Moderate Intensity therapy: ?? 2.0-3.0 High Intensity therapy: ?? 2.5-4.0 us Brynn CRUZ LAB BLOOD ORDERABLES Final Resul t Performing Organization Address [facility] [place] [facility] Co de Phone Number [facility]
[address] [facility], [place] [address], [place] [phone] * Light Blue Top (08/01/2023 7:46 PM EST) Extra Tube Hold for add-ons. 08/01/2023 9:01 PM EST [facility] Comment:Auto resulted Blood Venipuncture / Unknown 08/01/2023 7:46 PM EST 08/01/2023 7:50 PM EST us Brynn CRUZ LAB BLOOD ORDER ONLY Final Resul t Performing Organization Address City/[facility]/ZIP Co de Phone Number [facility]
[address] [facility], [place] [address], [place] [phone] * Gold Top - SST (08/01/2023 7:46 PM EST) Extra Tube Hold for add-ons. 08/01/2023 9:01 PM EST [facility] Comment:Auto resulted. Blood Venipuncture / Unknown 08/01/2023 7:46 PM EST 08/01/2023 7:50 PM EST us Brynn CRUZ LAB BLOOD ORDER ONLY Final Resul t [facility]
[address] [facility], [place] [address], [place] [phone] * Lavender Top (08/01/2023 7:46 PM EST) Extra Tube hold for add-on 08/01/2023 9:01 PM EST [facility] Comment:Auto resulted Blood Venipuncture / Unknown 08/01/2023 7:46 PM EST 08/01/2023 7:50 PM EST us Brynn CRUZ LAB BLOOD ORDER ONLY Final Resul t Performing Organization Address [facility] [place] [facility] de Phone Number [facility]
1 [facility] [employer], [place] [address], [place] [phone] * Green Top (Gel) (08/01/2023 7:46 PM EST) Extra Tube Hold for add-ons. 08/01/2023 9:01 PM EST [facility] Comment:Auto resulted. Blood Venipuncture / Unknown 08/01/2023 7:46 PM EST 08/01/2023 7:50 PM EST us Brynn CRUZ LAB BLOOD ORDER ONLY Final Resul t Performing Organization Address City/[facility]/ZIP Co de Phone Number [facility]
[address] [facility] [place], [place] [address], [place] [phone] * (ABNORMAL) CBC Auto Differential (08/01/2023 7:46 PM EST) [facility] WBC 7.26 3.40 - 10.80 10*3/mm3 08/01/2023 7:53 PM [facility] RBC 3.13(L) 3.77 - 5.28 10*6/mm3 08/01/2023 7:53 PM EST [facility] Hemoglobin 12.0 12.0 - 15.9 g/dL 08/01/2023 7:53 PM [facility] Hematocrit 34.7 34.0 - 46.6 % 08/01/2023 7:53 PM [facility] MCV 110.9(H) 79.0 - 97.0 fL 08/01/2023 7:53 PM [facility] MCH 38.3(H) 26.6 - 33.0 pg 08/01/2023 7:53 PM [facility] MCHC 34.6 31.5 - 35.7 g/dL 08/01/2023 7:53 PM [facility] RDW 15.2 12.3 - 15.4 % 08/01/2023 7:53 PM [facility] RDW-SD 62.1(H) 37.0 - 54.0 fl 08/01/2023 7:53 PM [facility] MPV 10.3 6.0 - 12.0 fL 08/01/2023 7:53 PM [facility] Platelets 97(L) 140 - 450 10*3/mm3 08/01/2023 7:53 PM [facility] Neutrophil % 65.8 42.7 - 76.0 % 08/01/2023 7:53 PM [facility] Lymphocyte % 18.6(L) 19.6 - 45.3 % 08/01/2023 7:53 PM [facility] Monocyte % 12.8(H) 5.0 - 12.0 % 08/01/2023 7:53 PM [facility] Eosinophil % 1.5 0.3 - 6.2 % 08/01/2023 7:53 PM EST [facility] Basophil % 0.7 0.0 - 1.5 % 08/01/2023 7:53 PM EST [facility] Immature Grans % 0.6(H) 0.0 - 0.5 % 08/01/2023 7:53 PM EST [facility] Neutrophils, Absolute 4.78 1.70 - 7.00 10*3/mm3 08/01/2023 7:53 PM EST [facility] Lymphocytes, Absolute 1.35 0.70 - 3.10 10*3/mm3 08/01/2023 7:53 PM EST [facility] Monocytes, Absolute 0.93(H) 0.10 - 0.90 10*3/mm3 08/01/2023 7:53 PM EST [facility] Eosinophils, Absolute 0.11 0.00 - 0.40 10*3/mm3 08/01/2023 7:53 PM EST [facility] Basophils, Absolute 0.05 0.00 - 0.20 10*3/mm3 08/01/2023 7:53 PM EST [facility] Immature Grans, Absolute 0.04 0.00 - 0.05 10*3/mm3 08/01/2023 7:53 PM EST [facility] nRBC 0.0 0.0 - 0.2 /100 WBC 08/01/2023 7:53 PM EST [facility] Blood Venipuncture / Unknown 08/01/2023 7:46 PM EST 08/01/2023 7:50 PM EST us Brynn CRUZ LAB BLOOD ORDERABLES Final Resul t [facility]
1 [facility] [place] [address], [phone] * Magnesium (08/01/2023 7:46 PM EST) [facility] Magnesium 2.0 1.6 - 2.6 mg/dL 08/01/2023 8:13 PM EST [facility] Blood Venipuncture / Unknown 08/01/2023 7:46 PM EST 08/01/2023 7:50 PM EST us Brynn CRUZ LAB BLOOD ORDERABLES Final Resul t Performing Organization Address [facility]/ZIP Co de Phone Number [facility]
1 [place] [address], [phone] * (ABNORMAL) Ethanol (08/01/2023 7:46 PM EST) Ethanol 52(H) 0 - 10 mg/dL 08/01/2023 8:11 PM EST [facility] Ethanol % 0.052 % 08/01/2023 8:11 PM EST [facility] Blood Venipuncture / Unknown 08/01/2023 7:46 PM EST 08/01/2023 7:50 PM EST Narrative [facility] - 08/01/2023 8:11 PM EST >/= 80.0 legally intoxicated us Brynn CRUZ LAB BLOOD ORDERABLES Final Resul t Performing Organization Address [facility]/ZIP Co de Phone Number [facility]
[address] [place] [address], [phone] * (ABNORMAL) Comprehensive Metabolic Panel (08/01/2023 7:46 PM EST) Glucose 114(H) 65 - 99 mg/dL 08/01/2023 8:13 PM EST [facility] BUN 4(L) 6 - 20 mg/dL 08/01/2023 8:13 PM EST [facility] Creatinine 0.70 0.57 - 1.00 mg/dL 08/01/2023 8:13 PM EST [facility] Sodium 131(L) 136 - 145 mmol/L 08/01/2023 8:13 PM [facility] Potassium 3.2(L) 3.5 - 5.2 mmol/L 08/01/2023 8:13 PM [facility] Comment:Slight hemolysis det ected by analyzer. Result may be falsely elevated. Chloride 96(L) 98 - 107 mmol/L 08/01/2023 8:13 PM [facility] CO2 22.8 22.0 - 29.0 mmol/L 08/01/2023 8:13 PM [facility] Calcium 8.7 8.6 - 10.5 mg/dL 08/01/2023 8:13 PM [facility] Total Protein 7.1 6.0 - 8.5 g/dL 08/01/2023 8:13 PM [facility] Albumin 3.2(L) 3.5 - 5.2 g/dL 08/01/2023 8:13 PM [facility] ALT (SGPT) 55(H) 1 - 33 U/L 08/01/2023 8:13 PM [facility] AST (SGOT) 112(H) 1 - 32 U/L 08/01/2023 8:13 PM [facility] Alkaline Phosphatase 177(H) 39 - 117 U/L 08/01/2023 8:13 PM [facility] Total Bilirubin 10.0(H) 0.0 - 1.2 mg/dL 08/01/2023 8:13 PM [facility] Globulin 3.9 gm/dL 08/01/2023 8:13 PM [facility] A/G Ratio 0.8 g/dL 08/01/2023 8:13 PM [facility] BUN/Creatinine Ratio 5.7(L) 7.0 - 25.0 08/01/2023 8:13 PM [facility] Anion Gap 12.2 5.0 - 15.0 mmol/L 08/01/2023 8:13 PM [facility] eGFR 117.3 >60.0 mL/min/1.7 3 08/01/2023 8:13 PM EST [facility] Blood Venipuncture / Unknown 08/01/2023 7:46 PM EST 08/01/2023 7:50 PM EST Narrative [facility] - 08/01/2023 8:13 PM EST GFR Normal >60 Chronic Kidney Disease <60 Kidney Failure <15 us Brynn CRUZ LAB BLOOD ORDERABLES Final Resul t [facility]
1 [facility] [place] [address], [place] [phone] documented in this encounter Visit Diagnoses [...] 1924 documented in this encounter Care Teams Scrub Wheel Operator Relationship Specialty Start Date End Date Provider, No Known [facility] [place] [address] PCP - General 08/01/23 10/22/23 documented as of this encounter
--- OUTSIDE RECORDS SUMMARY | 2024-05-19 10:17 | XMS_ITS | Encounter Summary ---
Author Organization [facility] Address [facility] [place] [address] Care Team Providers Care Manager Spanish Name Role Phone Yonatan Graves DO Primary Care Provider Farida Ortega AIRCRAFT AVIONICS TECHNICIAN Unavailable [phone] Source Comments This information has been disclosed [...] release of HIV test results or diagnoses. [id number] Reason for Referral * Surgical (Routine) - Pending Review Specialty Diagnoses / Procedures Referred By Roselyn mccollum Referred To Contact Gastroenterology Diagnoses Alcoholic cirrhosis of liver with ascites ([facility]-HCC) Procedures Case request GI: EGD Mario Ramirez MD [address] [facility] [place] [address] Phone: tel: fax: Referral ID Status Reason Start Date Expiration Date V isits Requested Visits Authorized [id number] Pending Review 05/14/2024 11/10/2024 1 1 Encounter Details Date Type Department Care Team (Late st Contact Info) Description 05/14/2024 Orders Only [facility] Gastroenterology at [facility] [address] [facility] [address] [place] [address] Mario Ramirez MD [address] [place] [address] 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) [...] as of this encounter Plan of Treatment Upcoming Encounters Date Type Department Care Team (Late st Contact Info) Description 07/28/2024 12:31 PM EST Hospital Encounter [facility] ENDOSCOPY [address] [place] [address] Mario Ramirez MD [address] [place] [address] 07/28/2024 12:31 PM EST - 07/28/2024 1:01 PM EST Surgery [facility] ENDOSCOPY [address] [place] [address] Mario Ramirez MD [address] [place] [address] EGD Scheduled Procedures Name Priority Associated Diagnoses Date/Ti pr EGD 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) 07/28/2024 12:31 PM EST documented as of this encounter Visit Diagnoses Diagnosis 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)- Primary 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) documented in this encounter Additional Health Concerns Assessment Noted Time PHQ-9 Depression Total Score: 13 024 11:52 AM EDT documented as of this encounter Care Teams Manager Spanish Relationship Specialty Start Date End Date Yonatan Graves DO [address] [place] [address] PCP - General 09/02/23 Farida Ortega, HARLEEN [address] [place] [id number] Referring Physician Gastroenterology 09/02/23 documented as of this encounter
--- OUTSIDE RECORDS SUMMARY | 2024-05-19 10:17 | XMS_ITS | Encounter Summary ---
Author Organization [facility] Address [facility] [place] [address] Care Team Providers Care Junior Buyer Name Role Phone Yonatan Graves DO Primary Care Provider Farida Ortega PROPERTY UNDERWRITER Unavailable [phone] Source Comments This information has been disclosed [...] release of HIV test results or diagnoses. [id number] Encounter Details Date Type Department Care [...] Description 07/28/2024 12:31 PM EST Hospital Encounter [facility] ENDOSCOPY [address] [place] [address] Mario Ramirez MD [address] [place] [phone] 07/28/2024 12:31 PM EST - 07/28/2024 1:01 PM EST Surgery [facility] ENDOSCOPY [address] [place] [phone] Mario Ramirez MD [address] [place] [address] EGD Scheduled Procedures Name Priority Associated Diagnoses Date/Ti me EGD 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) 07/28/2024 12:31 PM EST documented as of this encounter Visit Diagnoses Not on filedocumented in this encounter Additional Health Concerns Assessment Noted Time PHQ-9 Depression Total Score: 13 024 11:52 AM EDT documented as of this encounter Care Teams Junior Buyer Relationship Specialty Start Date End Date Yonatan Graves DO [address] [place] [address] PCP - General 09/02/23 Farida Ortega, PROPERTY UNDERWRITER [address] [place] [address] Referring Physician Gastroenterology 09/02/23 documented as of this encounter
--- OUTSIDE RECORDS SUMMARY | 2024-05-19 10:17 | XMS_ITS | Encounter Summary ---
[facility] Address [address] [place] [address] Care Team Providers Care After School Program Coordinator Name Role Phone Unavailable Primary Care Provider Unavailabl e Encounter Details Date Type Department Care Team (Late st Contact Info) Description 11/25/2013 5:17 PM EDT - 11/25/2013 11:59 PM EDT Hospital Encounter [facility] DEPARTMENT [address] [place] [address] Bernard Lui MD [address] [address] Social History Tobacco Use Types Packs/Day Years [...] / Unknown 11/25/2013 7:55 AM EDT Narrative [facility] - 11/27/2013 7:54 AM EDT Specimen Type: Urine Specimen Source: Catheterized [facility] - Culture Urine Specimen: Urine Collected: 11/25/2013 07:55 Status: FINAL ? Last Updated: 11/27/2013 07:54 Culture Result (CR) (Final) ??No Growth 2 Days us Bernard Lui MD MICROBIOLOGY - GENERAL ORDERAB LES Final Result Performing Organization Address City/State/[facility] Co de Phone Number [facility] [address] [place] [address], documented in this encounter Visit Diagnoses Not on filedocumented in this encounter
--- OUTSIDE RECORDS SUMMARY | 2024-05-19 10:17 | XMS_ITS | Encounter Summary ---
Author Organization [facility] Address [address] [place] [address] Care Team Providers Care News Intern Name Role Phone Yonatan Graves DO Primary Care Provider Farida Ortega PLASTIC FIXTURE BUILDER Unavailable [phone] Source Comments This information has been disclosed [...] release of HIV test results or diagnoses. [id number] Encounter Details Date Type Department Care Team (Late st Contact Info) Description 02/16/2024 Telephone [facility] G[facility]ology at [place] [address] [place] [address] Brynn Ghosh RN Social History Tobacco Use [...] she just got home from the hospital ([facility]) in [place]. Her groin veins were causing discomfort. An [...] system but I would reach out to [facility]. Once they are received and reviewed will call her back with the next steps. documented in this encounter Plan of Treatment Upcoming Encounters Date Type Department Care Team (Late st Contact Info) Description 07/28/2024 12:31 PM EST Hospital Encounter [facility] ENDOSCOPY [address] [place] [phone] Mario Ramirez MD [address] [place] [address] 07/28/2024 12:31 PM EST - 07/28/2024 1:[address] [facility] ENDOSCOPY [address] [place] [address] Mario Ramirez MD [address] [place] [phone] EGD Scheduled Procedures Name Priority Associated Diagnoses Date/Ti me EGD 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) 07/28/2024 12:31 PM EST documented as of this encounter Visit Diagnoses Not on filedocumented in this encounter Additional Health Concerns Assessment Noted Time PHQ-9 Depression Total Score: 13 024 11:52 AM EDT documented as of this encounter Care Teams News Intern Relationship Specialty Start Date End Date Yonatan Graves DO [address] [place] [address] PCP - General 09/02/23 Farida Ortega, PLASTIC FIXTURE BUILDER [address] [place] [address] Referring Physician Gastroenterology 09/02/23 documented as of this encounter
--- OUTSIDE RECORDS SUMMARY | 2024-05-19 10:17 | XMS_ITS | Encounter Summary ---
Author Organization [facility] Address [address] [place] [address] Care Team Providers Care Rejector Name Role Phone Yonatan Graves DO Primary Care Provider Farida Ortega WIRE WRAPPING MACHINE OPERATOR Unavailable [phone] Source Comments This information has been disclosed [...] release of HIV test results or diagnoses. [id number] Reason for Visit * Reason Comments Labs Only * Auth/Cert (Routine) Specialty Diagnoses / Procedures Referred By Roselyn mccollum Referred To Contact Radiology [facility] Imaging at [address] [address] Phone: tel: Referral ID Status Reason Start Date Expiration Date Visits Re quested Visits Authorized [id number] 1 1 Encounter Details Date Type Department Care Team (Late st Contact Info) Description 02/04/2024 3:30 PM EDT Specimen [facility] Outreach Lab [address] [place] [address] Agustin Hurt MD Decompensated hepatic [...] Description 07/28/2024 12:31 PM EST Hospital Encounter [facility] ENDOSCOPY [address] [place] [address] Mario Ramirez MD [address] [place] [address] 07/28/2024 12:31 PM EST - 07/28/2024 1:01 PM EST Surgery [facility] ENDOSCOPY [address] [place] [address] Mario Ramirez MD [address] [place] [address] EGD Scheduled Procedures Name Priority Associated Diagnoses Date/Ti me EGD 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) 07/28/2024 12:31 PM EST documented as of this encounter Procedures Procedure [...] 4:00 PM EDT Decompensated hepatic cirrhosis (CMS-HCC) [id number] Routine 02/04/2024 4 :00 PM EDT Decompensated [...] Cutoff: 10 ng/mL 02/07/2024 11:19 AM EDT [facility] Comment: Phosphatidylethanol (PEth) homologues result interpretation [...] PEth Interpretation Negative. 02/06 11:19 AM EDT [facility] Comment: ADDITIONAL INFORMATION This report is intended for use in clinical monitoring and management of patients. ??It is not intended for use in employment-related testing. This test was developed and its performance characteristics determined by [facility] in a manner consistent with CLIA requirements. This test has not been cleared or approved by the U.S. Food and Drug Administration. Test Performed by: [facility] [address] [place] [address] Tin Whiz Machine Operator: Alexia David Ph.D.; CLIA# [id number] Whole Blood 02/04/2024 4:00 PM EDT 02/07/2024 11:19 AM EDT Agustin Hurt MD LAB BLOOD ORDERABLES Final Res ult Performing Organization Address [facility] Co de Phone Number [facility] [address] * AFP tumor marker (02/04/2024 4:00 PM EDT) Pathologist [facility] AFP-Tumor Marker 8.7 0.0 - 9.0 ng/mL 02/04/2024 5:45 PM EDT [facility] Serum 02/04/2024 4:00 PM EDT 02/04/2024 5:13 PM EDT Narrative [facility] - 02/04/2024 5:45 PM EDT The testing method for AFP is a chemiluminescent immunoassay manufactured by [employer] Concentrations of AFP obtained by different assay methods or kits may vary and cannot be used interchangeably. AFP results cannot be interpreted as absolute evidence of the presence or absence of malignant disease. Agustin Hurt MD LAB BLOOD ORDERABLES Final Res ult Performing Organization Address [facility]/ZIP Co de Phone Number [facility] [address] * (ABNORMAL) Renal Function Panel w/EGFR (02/04/2024 4:00 PM EDT) Sodium 125(L) 133 - 146 mmol/L 02/04/2024 5:44 PM EDT [facility] Potassium 4.2 3.5 - 5.3 mmol/L 02/04/2024 5:44 PM EDT [facility] Chloride 94(L) 98 - 110 mmol/L 02/04/2024 5:44 PM EDT [facility] CO2 22 21 - 33 mmol/L 02/04/2024 5:44 PM EDT [facility] Anion Gap 9 3 - 16 mmol/L 02/04/2024 5:44 PM EDT [facility] BUN 14 7 - 25 mg/dL 02/04/2024 5:44 PM EDT [facility] Creatinine 0.95 0.60 - 1.30 mg/dL 02/04/2024 5:44 PM EDT [facility] Glucose 127(H) 70 - 100 mg/dL 02/04/2024 5:44 PM EDT [facility] Calcium 8.7 8.6 - 10.3 mg/dL 02/04/2024 5:44 PM EDT [facility] Phosphorus 3.4 2.1 - 4.7 mg/dL 02/04/2024 5:44 PM EDT [facility] Albumin 3.4(L) 3.5 - 5.7 g/dL 02/04/2024 5:44 PM EDT [facility] Osmolality, Calculated 262(L) 278 - 305 mOsm/kg 02/04/2024 5:44 PM EDT [facility] EGFR 81 02/04/2024 5:44 PM EDT [facility] Comment:As of 2021, the estimated [...] M, Chato [place], Suzy [place], Jyoti [place], Car Shunter [place], et al. A Unifying Approach for GFR Estimation: Recommendations of the NKF-ASN Task Force on Reassessing the inclusion of Race in Diagnosing Kidney Disease. Am J Kidney Dis. 2020. Plasma 02/04/2024 4:00 PM EDT 02/04/2024 5:15 PM EDT us Agustin Hurt MD LAB BLOOD ORDERABLES Final Res ult Performing Organization Address [facility] Co de Phone Number [facility] [address] [facility] * (ABNORMAL) Hepatic Function Panel (02/04/2024 4:00 PM EDT) Total Bilirubin 6.3(H) 0.0 - 1.5 mg/dL 02/04/2024 5:44 PM EDT [facility] Bilirubin, Direct 3.04(H) 0.00 - 0.40 mg/dL 02/04/2024 5:44 PM EDT [facility] AST 93(H) 13 - 39 U/L 02/04/2024 5:44 PM EDT [facility] ALT 83(H) 7 - 52 U/L 02/04/2024 5:44 PM EDT [facility] Alkaline Phosphatase 198(H) 36 - 125 U/L 02/04/2024 5:44 PM EDT [facility] Total Protein 6.8 6.4 - 8.9 g/dL 02/04/2024 5:44 PM EDT [facility] Albumin 3.4(L) 3.5 - 5.7 g/dL 02/04/2024 5:44 PM EDT [facility] Bilirubin, Indirect 3.26(H) 0.00 - 1.10 mg/dL 02/04/2024 5:44 PM EDT [facility] Plasma 02/04/2024 4:00 PM EDT 02/04/2024 5:15 PM EDT us Agustin Hurt MD LAB BLOOD ORDERABLES Final Res ult Performing Organization Address City/[facility]/ZIP Co de Phone Number [facility] [address] * (ABNORMAL) Protime-INR (02/04/2024 4:00 PM EDT) [facility] Protime 17.2(H) 12.1 - 15.1 seconds 02/04/2024 5:41 PM EDT [facility] INR 1.3(H) 0.9 - 1.1 02/04/2024 5:41 PM EDT [facility] Comment: RECOMMENDED THERAPEUTIC RANGES USING INR : ?Stable oral anticoagulant therapy: ? 2.0 - 3.0 ?Mechanical prosthetic heart valve: ? 2.5 - 3.5 ?Recurrent acute myocardial infarction: ? 2.5 - 3.5 Plasma 02/04/2024 4:00 PM EDT 02/04/2024 5:13 PM EDT us Agustin Hurt MD LAB BLOOD ORDERABLES Final Res ult [facility] [address] * (ABNORMAL) CBC (02/04/2024 4:00 PM EDT) [facility] WBC 6.1 3.8 - 10.8 10E3/uL 02/04/2024 5:24 PM EDT [facility] RBC 2.86(L) 3.80 - 5.10 10E6/uL 02/04/2024 5:24 PM EDT [facility] Hemoglobin 10.6(L) 11.7 - 15.5 g/dL 02/04/2024 5:24 PM EDT [facility] Hematocrit 29.7(L) 35.0 - 45.0 % 02/04/2024 5:24 PM EDT [facility] MCV 103.9(H) 80.0 - 100.0 fL 02/04/2024 5:24 PM EDT [facility] MCH 37.1(H) 27.0 - 33.0 pg 02/04/2024 5:24 PM EDT [facility] MCHC 35.8 32.0 - 36.0 g/dL 02/04/2024 5:24 PM EDT [facility] RDW 15.3(H) 11.0 - 15.0 % 02/04/2024 5:24 PM EDT [facility] Platelets 93(L) 140 - 400 10E3/uL 02/04/2024 5:24 PM EDT [facility] MPV 9.3 7.5 - 11.5 fL 02/04/2024 5:24 PM EDT [facility] Whole Blood 02/04/2024 4:00 PM EDT 02/04/2024 5:14 PM EDT Agustin Hurt MD LAB BLOOD ORDERABLES Final Res ult Performing Organization Address [facility] Co de Phone Number [facility] [address] [facility] * Ceruloplasmin (02/04/2024 4:00 PM EDT) Ceruloplasmin 25.6 18.0 - 58.0 mg/dL 02/04/2024 5:44 PM EDT [facility] Comment: Effective 03/25/2016: The units for ceruloplasmin have changed from mg/L to mg/dL. The new reference range is 18-58 mg/dL. ??Historical values can be converted from mg/L to mg/dL by dividing by a factor of 10. Serum 02/04/2024 4:00 PM EDT 02/04/2024 5:13 PM EDT Agustin Hurt MD LAB BLOOD ORDERABLES Final Res ult Performing Organization Address City/[facility]/ZIP Co de Phone Number [facility] [address] [facility] * Ferritin (02/04/2024 4:00 PM EDT) Ferritin 150.9 11.0 - 306.8 ng/mL 02/04/2024 5:58 PM EDT [facility] Serum 02/04/2024 4:00 PM EDT 02/04/2024 5:13 PM EDT Agustin Hurt MD LAB BLOOD ORDERABLES Final Res ult [facility] [address] [facility] * (ABNORMAL) Iron Studies (Iron + TIBC) (02/04/2024 4:00 PM EDT) Iron 214(H) 50 - 212 ug/dL 02/04/2024 5:42 PM EDT [facility] % Iron Saturation 57.5(H) 15.0 - 55.0 % 02/04/2024 5:42 PM EDT [facility] TIBC 372 265 - 497 ug/dL 02/04/2024 5:42 PM EDT [facility] Serum 02/04/2024 4:00 PM EDT 02/04/2024 5:15 PM EDT Agustin Hurt MD LAB BLOOD ORDERABLES Final Res ult [facility] [address] [facility] * Vhnqu-1-kllqxemgnot (02/04/2024 4:00 PM EDT) A-1 Antitrypsin 180.0 84.0 - 218.0 mg/dL 02/04/2024 5:44 PM EDT [facility] Serum 02/04/2024 4:00 PM EDT 02/04/2024 5:13 PM EDT us Agustin Hurt MD LAB BLOOD ORDERABLES Final Res ult [facility] [address] [place] [id number], [facility] documented in this encounter Visit Diagnoses Diagnosis Decompensated hepatic cirrhosis (CMS-HCC) 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) 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) documented in this encounter Additional Health Concerns Assessment Noted Time PHQ-9 Depression Total Score: 13 024 11:52 AM EDT documented as of this encounter Care Teams Rejector Relationship Specialty Start Date End Date Yonatan Graves DO [address] [place] [address] PCP - General 09/02/23 Farida Ortega, WIRE WRAPPING MACHINE OPERATOR [address] [place] [address] Referring Physician Gastroenterology 09/02/23 documented as of this encounter
--- OUTSIDE RECORDS SUMMARY | 2024-05-19 10:17 | XMS_ITS | Encounter Summary ---
Author Organization [facility] Address [address] [place] [address] Care Team Providers Care Test Engineering Technician Name Role Phone Yonatan Graves DO Primary Care Provider Farida Ortega AIRFRAME DESIGN ENGINEER Unavailable [phone] Source Comments This information has been disclosed [...] release of HIV test results or diagnoses. [id number] Reason for Visit * Reason Comments Advice Only PT seeks scheduling/discussion of results. Encounter Details Date Type Department Care Team (Late st Contact Info) Description 02/04/2024 Telephone [facility] Gastroenterology at [address] [address] Agustin Hurt MD Advice Only ( PT [...] 02/03 as she will be traveling from [place] for an MRI at 1:30p. She states [...] Description 07/28/2024 12:31 PM EST Hospital Encounter [facility] ENDOSCOPY [address] [place] [address] Mario Ramirez MD [address] [place] [address] 07/28/2024 12:31 PM EST - 07/28/2024 1:01 PM EST Surgery [facility] ENDOSCOPY [address] [place] [address] Mario Ramirez MD [address] [place] [address] EGD Scheduled Procedures Name Priority Associated Diagnoses Date/Ti me EGD 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) 07/28/2024 12:31 PM EST documented as of this encounter Visit Diagnoses Not on filedocumented in this encounter Additional Health Concerns Assessment Noted Time PHQ-9 Depression Total Score: 13 024 11:52 AM EDT documented as of this encounter Care Teams Test Engineering Technician Relationship Specialty Start Date End Date Yonatan Graves DO [address] [place] [address] PCP - General 09/02/23 Farida Ortega, AIRFRAME DESIGN ENGINEER [address] [place] [address] Referring Physician Gastroenterology 09/02/23 documented as of this encounter
--- OUTSIDE RECORDS SUMMARY | 2024-05-19 10:17 | XMS_ITS | Encounter Summary ---
Author Organization [facility] Address [facility] [place] [address] Care Team Providers Care Iron Miner Blasting Name Role Phone Yonatan Graves DO Primary Care Provider Farida Ortega MOTOR VEHICLE LIGHT ASSEMBLER Unavailable [phone] Source Comments This information has been disclosed [...] release of HIV test results or diagnoses. [id number] Reason for Visit * Reason Comments Medication Refill Encounter Details Date Type Department Care Team (Late st Contact Info) Description 11/05/[address] [facility] G[facility]enterology at [place] [facility] [address] [address] Grazyna Velasco MD [address] [place] [address] Alcoholic cirrhosis of liver with ascites ([facility]-HCC) Social History Tobacco Use Types Packs/Day [...] Description 07/28/2024 12:31 PM EST Hospital Encounter [facility] ENDOSCOPY [address] [place] [address] Mario Ramirez MD [address] [place] [address] 07/28/2024 12:31 PM EST - 07/28/2024 1:01 PM EST Surgery [facility] ENDOSCOPY [address] [place] [address] Mario Ramirez MD [address] [place] [address] EGD Scheduled Procedures Name Priority Associated Diagnoses [...] documented as of this encounter Care Teams Iron Miner Blasting Relationship Specialty Start Date End Date Yonatan Graves DO [address] [place] [address] PCP - General 09/02/23 Farida Ortega, MOTOR VEHICLE LIGHT ASSEMBLER [address] [place] [address] Referring Physician Gastroenterology 09/02/23 documented as of this encounter
--- OUTSIDE RECORDS SUMMARY | 2024-05-19 10:17 | XMS_ITS | Encounter Summary ---
Author Organization [facility] Address [facility] [place] [address] Care Team Providers Care Supervisor [place] Name Role Phone Yonatan Graves DO Primary Care Provider Farida Ortega MANAGER PUBLIC Unavailable [phone] Source Comments This information has been disclosed [...] release of HIV test results or diagnoses. [id number] Health Encounter Details Date Type Department Care Team (Latest Contact Info) Description 05/12/2024 Travel Social History Tobacco Use Types Packs/Day [...] PM EST Hospital Encounter [facility] ENDOSCOPY [address] [place] [address] Mario Ramirez MD [address] [place] [address] 07/28/2024 12:31 PM EST - 07/28/2024 1:01 PM EST Surgery [facility] ENDOSCOPY [address] [place] [address] Mario Ramirez MD [address] [place] [address] EGD Scheduled Procedures Name Priority Associated Diagnoses Date/Ti me EGD 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) 07/28/2024 12:31 PM EST documented as of this encounter Visit Diagnoses Not on filedocumented in this encounter Additional Health Concerns Assessment Noted Time PHQ-9 Depression Total Score: 13 024 11:52 AM EDT documented as of this encounter Care Teams Supervisor [place] Relationship Specialty Start Date End Date Yonatan Graves DO [address] [place] [address] PCP - General 09/02/23 Farida Ortega, MANAGER PUBLIC [address] [place] [address] Referring Physician Gastroenterology 09/02/23 documented as of this encounter
--- OUTSIDE RECORDS SUMMARY | 2024-05-19 10:17 | XMS_ITS | Encounter Summary ---
Author Organization [facility] Address [address] [place] [address] Care Team Providers Care Package Worker Name Role Phone Yonatan Graves DO Primary Care Provider Farida Ortega SENIOR SALES ASSISTANT Unavailable [phone] Source Comments This information has been disclosed [...] release of HIV test results or diagnoses. [id number] Reason for Visit * Reason Comments Labs Only Encounter Details Date Type Department Care Team (Late st Contact Info) Description 05/12/2024 10:10 AM EST Specimen [facility] Outreach Lab [address] [facility] [address] [place] [address] Mario Ramirez MD [address] [place] [address] Alcoholic cirrhosis of liver with ascites ([facility]-HCC) Social History Tobacco Use Types Packs/Day [...] Description 07/28/2024 12:31 PM EST Hospital Encounter [facility] ENDOSCOPY [address] [place] [address] Mario Ramirez MD [address] [place] [address] 07/28/2024 12:31 PM EST - 07/28/2024 1:01 PM EST Surgery [facility] ENDOSCOPY [address] [place] [address] Mario Ramirez MD [address] [place] [address] EGD Scheduled Procedures Name Priority Associated Diagnoses Date/Ti me EGD 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) 07/28/2024 12:31 PM EST documented as of this encounter Procedures Procedure Name Priority Date/Time Associated Diagnosis Comments PHOSPHATIDYLETHANOL CONFIRMATION, B Routine 05/12/2024 10:08 AM EST 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) HEPATIC FUNCTION PANEL Routine 10:08 AM EST 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) RENAL FUNCTION PANEL W/EGFR Routine 05/12/2024 10:08 AM EST 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) AFP TUMOR MARKER Routine 05/12/2024 10:0 8 AM EST 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) PROTIME-INR Routine 05/12/2024 10:08 AM EST 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) CBC Routine 05/12/2024 10:08 AM EST 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) documented in this encounter Results * AFP tumor marker (05/12/2024 10:08 AM EST) Pathologist [facility] AFP-Tumor Marker 9.0 0.0 - 9.0 ng/mL 05/12/2024 8:18 PM EST [facility] Serum 05/12/2024 10:0 8 AM EST 05/12/2024 4:11 PM EST Narrative [facility] - 05/12/2024 8:18 PM EST The testing method for AFP is a chemiluminescent immunoassay manufactured by [employer] Concentrations of AFP obtained by different assay methods or kits may vary and cannot be used interchangeably. AFP results cannot be interpreted as absolute evidence of the presence or absence of malignant disease. us Mario Ramirez MD LAB BLOOD ORDERABLES Final Re sult [facility] [address] * Phosphatidylethanol Confirmation, B (05/12/2024 10:08 AM EST) Pathologist [facility] PETH 16:0/18.1 (POPETH) <10 Cutoff: 10 ng/mL 05/16/2024 2:03 PM EST [facility] Comment: Phosphatidylethanol (PEth) homologues result [...] Cutoff: 10 ng/mL 05/16/2024 2:03 PM EST [facility] Comment: PEth 16:0/18:2 (PLPEth) Reference ranges are not well established PEt Interpretation Negative. 05/16 2:03 PM EST [facility] Comment: ADDITIONAL INFORMATION This report is intended for use in clinical monitoring and management of patients. ??It is not intended for use in employment-related testing. This test was developed and its performance characteristics determined by [facility] in a manner consistent with CLIA requirements. This test has not been cleared or approved by the U.S. Food and Drug Administration. Test Performed by: [facility] [address] [place] [address] Customer Experience Strategist: Alexia David Ph.D.; CLIA# [id number] Whole Blood 05/12/2024 10:0 8 AM EST 05/16/2024 2:03 PM EST Mario Ramirez MD LAB BLOOD ORDERABLES Final Re sult [facility] [address] [place] [address], [facility] * (ABNORMAL) Hepatic Function Panel (05/12/2024 10:08 AM EST) Total Bilirubin 2.7(H) 0.0 - 1.5 mg/dL 05/12/2024 5:03 PM EST [facility] Bilirubin, Direct 0.99(H) 0.00 - 0.40 mg/dL 05/12/2024 5:03 PM EST [facility] AST 61(H) 13 - 39 U/L 05/12/2024 5:03 PM EST [facility] ALT 36 7 - 52 U/L 05/12/2024 5:03 PM EST [facility] Alkaline Phosphatase 194(H) 36 - 125 U/L 05/12/2024 5:03 PM EST [facility] Total Protein 6.8 6.4 - 8.9 g/dL 05/12/2024 5:03 PM EST [facility] Albumin 4.0 3.5 - 5.7 g/dL 05/12/2024 5:03 PM EST [facility] Bilirubin, Indirect 1.71(H) 0.00 - 1.10 mg/dL 05/12/2024 5:03 PM EST [facility] Plasma 05/12/2024 10:0 8 AM EST 05/12/2024 4:11 PM EST Mario Ramirez MD LAB BLOOD ORDERABLES Final Re sult Performing Organization Address [facility] de Phone Number [facility] [address] * (ABNORMAL) Protime-INR (05/12/2024 10:08 AM EST) Protime 16.4(H) 12.1 - 15.1 seconds 05/12/2024 2:56 PM EST [facility] INR 1.3(H) 0.9 - 1.1 05/12/2024 2:56 PM EST [facility] Comment: RECOMMENDED THERAPEUTIC RANGES USING INR : ?Stable oral anticoagulant therapy: ? 2.0 - 3.0 ?Mechanical prosthetic heart valve: ? 2.5 - 3.5 ?Recurrent acute myocardial infarction: ? 2.5 - 3.5 Plasma 05/12/2024 10:0 8 AM EST 05/12/2024 2:13 PM EST Narrative [facility] - 05/12/2024 2:56 PM EST Container type->Blue top Mario Ramirez MD LAB BLOOD ORDERABLES Final Re sult Performing Organization Address [facility] Co de Phone Number [facility] [address] * (ABNORMAL) CBC (05/12/2024 10:08 AM EST) WBC 3.7(L) 3.8 - 10.8 10E3/uL 05/12/2024 2:20 PM EST [facility] RBC 3.50(L) 3.80 - 5.10 10E6/uL 05/12/2024 2:20 PM EST [facility] Hemoglobin 11.9 11.7 - 15.5 g/dL 05/12/2024 2:20 PM EST [facility] Hematocrit 33.5(L) 35.0 - 45.0 % 05/12/2024 2:20 PM EST [facility] MCV 95.7 80.0 - 100.0 fL 05/12/2024 2:20 PM EST [facility] MCH 34.0(H) 27.0 - 33.0 pg 05/12/2024 2:20 PM EST [facility] MCHC 35.5 32.0 - 36.0 g/dL 05/12/2024 2:20 PM EST [facility] RDW 13.5 11.0 - 15.0 % 05/12/2024 2:20 PM EST [facility] Platelets 94(L) 140 - 400 10E3/uL 05/12/2024 2:20 PM EST [facility] MPV 9.0 7.5 - 11.5 fL 05/12/2024 2:20 PM EST [facility] Whole Blood 05/12/2024 10:0 8 AM EST 05/12/2024 2:10 PM EST Mario Ramirez MD LAB BLOOD ORDERABLES Final Re sult [facility] [address] * (ABNORMAL) Renal Function Panel w/EGFR (05/12/2024 10:08 AM EST) Sodium 135 133 - 146 mmol/L 05/12/2024 5:03 PM EST [facility] Potassium 3.6 3.5 - 5.3 mmol/L 05/12/2024 5:03 PM EST [facility] Chloride 98 98 - 110 mmol/L 05/12/2024 5:03 PM EST [facility] CO2 26 21 - 33 mmol/L 05/12/2024 5:03 PM EST [facility] Anion Gap 11 3 - 16 mmol/L 05/12/2024 5:03 PM EST [facility] BUN 7 7 - 25 mg/dL 05/12/2024 5:03 PM EST [facility] Creatinine 0.77 0.60 - 1.30 mg/dL 05/12/2024 5:03 PM EST [facility] Glucose 90 70 - 100 mg/dL 05/12/2024 5:03 PM EST [facility] Calcium 8.4(L) 8.6 - 10.3 mg/dL 05/12/2024 5:03 PM EST [facility] Phosphorus 3.1 2.1 - 4.7 mg/dL 05/12/2024 5:03 PM EST [facility] Albumin 4.0 3.5 - 5.7 g/dL 05/12/2024 5:03 PM EST [facility] Osmolality, Calculated 278 278 - 305 mOsm/kg 05/12/2024 5:03 PM EST [facility] EGFR >90 05/12/2024 5:03 PM EST [facility] Comment: As of 2021, the estimated [...] MD LAB BLOOD ORDERABLES Final Re sult [facility] [address] [place] [address], [facility] documented in this encounter Visit Diagnoses Diagnosis 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) 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) documented in this encounter Additional Health Concerns Assessment Noted Time PHQ-9 Depression Total Score: 13 024 11:52 AM EDT documented as of this encounter Care Teams Package Worker Relationship Specialty Start Date End Date Yonatan Graves DO [address] [place] [address] PCP - General 09/02/23 Farida Ortega, SENIOR SALES ASSISTANT [address] [place] [address] Referring Physician Gastroenterology 09/02/23 documented as of this encounter
--- OUTSIDE RECORDS SUMMARY | 2024-05-19 10:17 | XMS_ITS | Encounter Summary ---
Author Organization [facility] Address [facility] [place] [address] Care Team Providers Care Livery Car Driver Name Role Phone Yonatan Graves DO Primary Care Provider Farida Ortega DRAFTING INSTRUCTOR Unavailable [phone] Source Comments This information has been disclosed [...] release of HIV test results or diagnoses. [id number] Encounter Details Date Type Department Care [...] Description 07/28/2024 12:31 PM EST Hospital Encounter [facility] ENDOSCOPY [address] [place] [address] Mario Ramirez MD [address] [place] [address] 07/28/2024 12:31 PM EST - 07/28/2024 1:01 PM EST Surgery [facility] ENDOSCOPY [address] [place] [phone] Mario Ramirez MD [address] [place] [address] EGD Scheduled Procedures Name Priority Associated Diagnoses Date/Ti me EGD 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) 07/28/2024 12:31 PM EST documented as of this encounter Visit Diagnoses Not on filedocumented in this encounter Additional Health Concerns Assessment Noted Time PHQ-9 Depression Total Score: 13 024 11:52 AM EDT documented as of this encounter Care Teams Livery Car Driver Relationship Specialty Start Date End Date Yonatan Graves DO [address] [place] [address] PCP - General 09/02/23 Farida Ortega, DRAFTING INSTRUCTOR [address] [place] [address] Referring Physician Gastroenterology 09/02/23 documented as of this encounter
--- OUTSIDE RECORDS SUMMARY | 2024-05-19 10:17 | XMS_ITS | Encounter Summary ---
Author Organization [facility] Address [address] [place] [address] Care Team Providers Care Nursing Support Worker Name Role Phone Yonatan Graves DO Primary Care Provider Farida Ortega TILE SORTER Unavailable [phone] Source Comments This information has been disclosed [...] release of HIV test results or diagnoses. [id number] Reason for Referral * Imaging/Cardiovascular Scan (Routine) - Closed Specialty Diagnoses / Procedures Referred By Roselyn mccollum Referred To Contact Radiology Diagnoses Decompensated hepatic cirrhosis (CMS-HCC) Procedures MRI Abdomen W and WO contrast Agustin Hurt MD Referral ID Status Reason Start Date Expiration Date Visits Re quested Visits Authorized [id number] Closed 09/08/2023 03/06/2024 1 1 Reason for Visit * Auth/Cert (Routine) Specialty Diagnoses / Procedures Referred By Roselyn mccollum Referred To Contact Radiology [facility] at [address] [address] Phone: tel: Referral ID Status Reason Start Date Expiration Date Visits Re quested Visits Authorized [id number] 1 1 Encounter Details Date Type Department Care Team (Latest Contact Info) Description 02/04/2024 1:24 PM EDT - 02/04/2024 11:59 PM EDT Hospital Encounter [facility] at [address] [address] Agustin Hurt MD Decompensated hepatic cirrhosis (CMS-HCC) [...] Description 07/28/2024 12:31 PM EST Hospital Encounter [facility] ENDOSCOPY [address] [place] [address] Mario Ramirez MD [address] [place] [address] 07/28/2024 12:31 PM EST - 07/28/2024 1:01 PM EST Surgery [facility] ENDOSCOPY [address] [place] [address] Mario Ramirez MD [address] [place] [address] EGD Scheduled Procedures Name Priority Associated Diagnoses [...] mL of GADOBUTROL 1 MMOL/ML INTRAVENOUS SYRINGE ([facility]) administered intravenously COMPARISON: Outside study dated [...] mL of GADOBUTROL 1 MMOL/ML INTRAVENOUS SYRINGE ([facility])administered intravenously COMPARISON: Outside study dated 08/18/2023 [...] encounter Visit Diagnoses Diagnosis Decompensated hepatic cirrhosis ([facility]-HCC) Alcoholic cirrhosis of liver with ascites ([facility]-HCC) documented in this encounter Administered Medications [...] documented as of this encounter Care Teams Nursing Support Worker Relationship Specialty Start Date End Date Yonatan Graves DO [address] [place] [address] PCP - General 09/02/23 Farida Ortega, HARLEEN [address] [place] [address] Referring Physician Gastroenterology 09/02/23 documented as of this encounter
--- OUTSIDE RECORDS SUMMARY | 2024-05-19 10:17 | XMS_ITS | Clinical Summary ---
Author Organization [facility] Address [facility] [place] [address] Care Team Providers Care Concrete Products Machine Operator Name Role Phone Yonatan Graves DO Primary Care Provider Farida Ortega SENIOR WINDOWS ENGINEER Unavailable [phone] Source Comments This information has been disclosed [...] therelease of HIV test results or diagnoses. [id number] Allergies Active Allergy Reactions Criticality Noted [...] Encounters Date Type Department Care Team Description 05/14/2024 Orders Only [facility] [place] [facility] [address] [facility] [address] [place] [address] Mario Ramirez MD 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 05/13/2024 Telephone [facility] [place] [facility] [address] [facility] [address] [place] [address] Brynn Ghosh RN 05/12/2024 10:10 AM EST Specimen [facility] Outreach Lab [address] [facility] [address] [place] [address] Mario Ramirez MD 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) 05/12/2024 8:40 AM EST Office Visit [facility] Gastroenterology at [address] [place] [address] Rahat Peres MD Schoech, Michael, MD 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 05/12/2024 Travel 05/12/2024 Telephone [facility] Gastroenterology at [address] [place] [address] Mario Ramirez MD Advice Only (PT EST w/ inbound, ETA w/in jake period.) 05/10/2024 Travel from Last 3 Months Family History Medical [...] Pulse 93 05/12/2024 9:01 AM EST Temperature 37.1 ??C (98.7 ??F) 09/02/2023 7:40 AM ED T Respiratory Rate 18 09/02/2023 12:06 PM EDT Oxygen Saturation 100% 05/12/2024 9:01 AM EST Inhaled Oxygen Concentration 100% 05/12/2024 9 :01 AM EST Weight 70.8 kg (156 lb) 05/12/2024 9:01 AM EST Height 165.1 cm (5' 5 ) 05/12/2024 9:01 AM EST Body Mass Index 25.96 05/12/2024 9:01 AM EST Plan of Treatment Upcoming Encounters Date Type Department Care Team (Late st Contact Info) Description 07/28/2024 12:31 PM EST Hospital Encounter [facility] ENDOSCOPY [address] [place] [address] Mario Ramirez MD [address] [place] [address] 07/28/2024 12:31 PM EST - 07/28/2024 1:01 PM EST Surgery [facility] ENDOSCOPY [address] [place] [address] Mario Ramirez MD [address] [place] [address] EGD Scheduled Procedures Name Priority Associated Diagnoses Date/Ti me EGD Alcoholic cirrhosis of liver with ascites ([facility]-HCC) 07/28/2024 12:31 PM EST Health Maintenance Due Date Last Done Comments [...] (#1) 2024 Depression Screening 09/24/2024 09/25/2023, 09/25/19 Hepatitis C Screening (MyChart) Completed Procedures Procedure Name Priority Date/Time Associated Diagnosis Comments AFP TUMOR MARKER Routine 05/12/2024 10:0 8 AM EST 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) PHOSPHATIDYLETHANOL CONFIRMATION, B Routine 05/12/2024 10:08 AM [...] 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) ED HCV AB REFLEX TO HCV QUANT Routine 09/01/2023 10:37 PM EDT from Last 3 Months or Most Recently Relevant to Health Maintenance Results * Phosphatidylethanol Confirmation, B (05/12/2024 10:08 AM EST) PETH 16:0/18.1 (POPETH) <10 Cutoff: 10 ng/mL 05/16/2024 2:03 PM EST [facility] Comment: Phosphatidylethanol (PEth) homologues result [...] per day several days a week) (Reference: W. Ulwelling and Claude Ball 2018 J. Forensic Sci) PETH 16:0/18.2 (PLPETH) <10 Cutoff: 10 ng/mL 05/16/2024 2:03 PM EST [facility] Comment: PEth 16:0/18:2 (PLPEth) Reference ranges are not well established PEth Interpretation Negative. 05/16 2:03 PM EST [facility] Comment: ADDITIONAL INFORMATION This report is intended for use in clinical monitoring and management of patients. ??It is not intended for use in employment-related testing. This test was developed and its performance characteristics determined by [facility] in a manner consistent with CLIA requirements. This test has not been cleared or approved by the U.S. Food and Drug Administration. Test Performed by: [facility] [place] [address] Chief Data Officer: Alexia David Ph.D.; CLIA# [id number] Whole Blood 05/12/2024 10:0 8 AM EST 05/16/2024 2:03 PM EST us Mario Ramirez MD LAB BLOOD ORDERABLES Final Re sult [facility] [address] [facility] [place] [place] [address], [facility] * (ABNORMAL) Hepatic Function Panel (05/12/2024 10:08 AM EST) Total Bilirubin 2.7(H) 0.0 - 1.5 mg/dL 05/12/2024 5:03 PM EST [facility] Bilirubin, Direct 0.99(H) 0.00 - 0.40 mg/dL 05/12/2024 5:03 PM EST [facility] AST 61(H) 13 - 39 U/L 05/12/2024 5:03 PM EST [facility] ALT 36 7 - 52 U/L 05/12/2024 5:03 PM EST [facility] Alkaline Phosphatase 194(H) 36 - 125 U/L 05/12/2024 5:03 PM EST [facility] Total Protein 6.8 6.4 - 8.9 g/dL 05/12/2024 5:03 PM EST [facility] Albumin 4.0 3.5 - 5.7 g/dL 05/12/2024 5:03 PM EST [facility] Bilirubin, Indirect 1.71(H) 0.00 - 1.10 mg/dL 05/12/2024 5:03 PM EST [facility] Plasma 05/12/2024 10:0 8 AM EST 05/12/2024 4:11 PM EST us Mario Ramirez MD LAB BLOOD ORDERABLES Final Re sult [facility] [address] [facility] [place] [place] [address], [facility] * (ABNORMAL) Renal Function Panel w/EGFR (05/12/2024 10:08 AM EST) Sodium 135 133 - 146 mmol/L 05/12/2024 5:03 PM EST [facility] Potassium 3.6 3.5 - 5.3 mmol/L 05/12/2024 5:03 PM EST [facility] Chloride 98 98 - 110 mmol/L 05/12/2024 5:03 PM [facility] CO2 26 21 - 33 mmol/L 05/12/2024 5:03 PM EST [facility] Anion Gap 11 3 - 16 mmol/L 05/12/2024 5:03 PM EST [facility] BUN 7 7 - 25 mg/dL 05/12/2024 5:03 PM [facility] Creatinine 0.77 0.60 - 1.30 mg/dL 05/12/2024 5:03 PM [facility] Glucose 90 70 - 100 mg/dL 05/12/2024 5:03 PM EST [facility] Calcium 8.4(L) 8.6 - 10.3 mg/dL 05/12/2024 5:03 PM EST [facility] Phosphorus 3.1 2.1 - 4.7 mg/dL 05/12/2024 5:03 PM EST [facility] Albumin 4.0 3.5 - 5.7 [...] MD LAB BLOOD ORDERABLES Final Re sult [facility] [address] * AFP tumor marker (05/12/2024 10:08 AM EST) AFP-Tumor Marker 9.0 0.0 - 9.0 ng/mL 05/12/2024 8:18 PM EST [facility] Serum 05/12/2024 10:0 8 AM EST 05/12/2024 4:11 PM EST Narrative [facility] - 05/12/2024 8:18 PM EST The testing method for AFP is a chemiluminescent immunoassay manufactured by [employer] Concentrations of AFP obtained by different assay methods or kits may vary and cannot be used interchangeably. AFP results cannot be interpreted as absolute evidence of the presence or absence of malignant disease. Mario Ramirez MD LAB BLOOD ORDERABLES Final Re sult Performing Organization Address [facility] de Phone Number [facility] [address] [facility] * (ABNORMAL) Protime-INR (05/12/2024 10:08 AM EST) Protime 16.4(H) 12.1 - 15.1 seconds 05/12/2024 2:56 PM EST [facility] INR 1.3(H) 0.9 - 1.1 05/12/2024 2:56 PM EST [facility] Comment: RECOMMENDED THERAPEUTIC RANGES USING INR : ?Stable oral anticoagulant therapy: ? 2.0 - 3.0 ?Mechanical prosthetic heart valve: ? 2.5 - 3.5 ?Recurrent acute myocardial infarction: ? 2.5 - 3.5 Plasma 05/12/2024 10:0 8 AM EST 05/12/2024 2:13 PM EST Narrative [facility] - 05/12/2024 2:56 PM EST Container type->Blue top Mario Ramirez MD LAB BLOOD ORDERABLES Final Re sult Performing Organization Address [facility] Co de Phone Number [facility] [address] * (ABNORMAL) CBC (05/12/2024 10:08 AM EST) WBC 3.7(L) 3.8 - 10.8 10E3/uL 05/12/2024 2:20 PM EST [facility] RBC 3.50(L) 3.80 - 5.10 10E6/uL 05/12/2024 2:20 PM EST [facility] Hemoglobin 11.9 11.7 - 15.5 g/dL 05/12/2024 2:20 PM EST [facility] Hematocrit 33.5(L) 35.0 - 45.0 % 05/12/2024 2:20 PM EST [facility] MCV 95.7 80.0 - 100.0 fL 05/12/2024 2:20 PM EST [facility] MCH 34.0(H) 27.0 - 33.0 pg 05/12/2024 2:20 PM EST [facility] MCHC 35.5 32.0 - 36.0 g/dL 05/12/2024 2:20 PM EST [facility] RDW 13.5 11.0 - 15.0 % 05/12/2024 2:20 PM EST [facility] Platelets 94(L) 140 - 400 10E3/uL 05/12/2024 2:20 PM EST [facility] MPV 9.0 7.5 - 11.5 fL 05/12/2024 2:20 PM EST [facility] Whole Blood 05/12/2024 10:0 8 AM EST 05/12/2024 2:10 PM EST us Mario Ramirez MD LAB BLOOD ORDERABLES Final Re sult Performing Organization Address City/State/[facility] Co de Phone Number [facility] [address] * (ABNORMAL) ED HCV Ab Reflex To HCV Quant (09/01/2023 10:37 PM EDT) Pathologist [facility] HCV Ab Reactive( A) Nonreactive 09/02/2023 5:03 AM EDT [facility] Comment:Health Department no tified in accordance with reportable infectious disease guidelines. HCVAB Number 4.50(H) 0.00 - 0.79 S/CO 09/02/2023 5:03 AM EDT [facility] Serum 09/01/2023 10:3 7 PM EDT 09/01/2023 10:54 PM EDT us Shiraz Rivera MD LAB BLOOD ORDERABLES Final Res ult [facility] [address] [place] [address], [facility] from Last 3 Months or Most Recently Relevant to Health Maintenance Insurance [id number] [id number] [facility] [address] [id number] [facility] [employer] MEDICAID [address] [id number] Care Teams Concrete Products Machine Operator Relationship Specialty Start Date End Date Yonatan Graves DO [address] [place] [address] PCP - General 09/02/23 Farida Ortega, SENIOR WINDOWS ENGINEER [address] [place] [address] Referring Physician Gastroenterology 09/02/23
--- OUTSIDE RECORDS SUMMARY | 2024-05-19 10:17 | XMS_ITS | Encounter Summary ---
Author Organization [facility] Address [facility] [place] [address] Care Team Providers Care Application Security Specialist Name Role Phone Yonatan Graves DO Primary Care Provider Farida Ortega COMMERCIAL CREDIT OFFICER Unavailable [phone] Source Comments This information has been disclosed [...] release of HIV test results or diagnoses. [id number] Health Encounter Details Date Type Department Care Team (Late st Contact Info) Description 05/13/2024 Telephone [facility] at [place] [facility] [address] [place] [phone] Brynn Ghosh, RN Social History Tobacco Use Types Packs/Day [...] encounter Miscellaneous Notes * Telephone Encounter - Makenzie Ramiro - 05/14/2024 2:16 PM EST Patient is scheduled for EGD with Dr. Ramirez on 07/28/24 at 12:30pm instructed patient to arrive at 11:00 am. Sent prep instructions via [employer]. Confirmed patient is not on any blood thinning medications. * Telephone Encounter - Brynn Ghosh RN - 05/13/2024 8:40 AM EST Can you please schedule the patient for the following procedure: Procedure: EGD Facility: [facility] Diagnosis: cirrhosis Referring MD: Ashley documented in this encounter Plan of Treatment Upcoming Encounters Date Type Department Care Team (Late st Contact Info) Description 07/28/2024 12:31 PM EST Hospital Encounter [facility] ENDOSCOPY [address] [place] [address] Mario Ramirez MD [address] [place] [address] 07/28/2024 12:31 PM EST - 07/28/2024 1:01 PM EST Surgery [facility] ENDOSCOPY [address] [place] [address] Mario Ramirez MD [address] [place] [address] EGD Scheduled Procedures Name Priority Associated Diagnoses Date/Ti me EGD 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) 07/28/2024 12:31 PM EST documented as of this encounter Visit Diagnoses Not on filedocumented in this encounter Additional Health Concerns Assessment Noted Time PHQ-9 Depression Total Score: 13 024 11:52 AM EDT documented as of this encounter Care Teams Application Security Specialist Relationship Specialty Start Date End Date Yonatan Graves DO [address] [place] [address] PCP - General 09/02/23 Farida Ortega, COMMERCIAL CREDIT OFFICER [address] [place] [address] Referring Physician Gastroenterology 09/02/23 documented as of this encounter
--- OUTSIDE RECORDS SUMMARY | 2024-05-19 10:17 | XMS_ITS | Encounter Summary ---
Author Organization [facility] Address [address] [place] [address] Care Team Providers Care Web Marketing Assistant Name Role Phone Yonatan Graves DO Primary Care Provider Farida Ortega LYE BOILER Unavailable [phone] Source Comments This information has been disclosed [...] release of HIV test results or diagnoses. [id number] Health Reason for Visit * Reason Comments Orders Fax Order Encounter Details Date Type Department Care Team (Late st Contact Info) Description 12/23/[address] [facility] Gastroenterology at [place] [facility] [address] [place] [address] Agustin Hurt MD Orders (Fax Order/) Social [...] - 12/23/2023 1:52 PM EDT Fax number [phone] Please fax over pt's MRI order. Thank you. documented in this encounter Plan of Treatment Upcoming Encounters Date Type Department Care Team (Late st Contact Info) Description 07/28/2024 12:31 PM EST Hospital Encounter [facility] ENDOSCOPY [address] [place] [address] Mario Ramirez MD [address] [place] [address] 07/28/2024 12:31 PM EST - 07/28/2024 1:01 PM EST Surgery [facility] ENDOSCOPY [address] [place] [address] Mario Ramirez MD [address] [place] [address] EGD Scheduled Procedures Name Priority Associated Diagnoses Date/Ti me EGD Alcoholic cirrhosis of liver with ascites ([facility]-H[facility]) 07/28/2024 12:31 PM EST documented as of this encounter Visit Diagnoses Not on filedocumented in this encounter Additional Health Concerns Assessment Noted Time PHQ-9 Depression Total Score: 13 024 11:52 AM EDT documented as of this encounter Care Teams Web Marketing Assistant Relationship Specialty Start Date End Date Yonatan Graves DO [address] [place] [address] PCP - General 09/02/23 Farida Ortega, LYE BOILER [address] [place] [address] Referring Physician Gastroenterology 09/02/23 documented as of this encounter
--- OUTSIDE RECORDS SUMMARY | 2024-05-19 10:17 | XMS_ITS | Encounter Summary ---
Author Organization [facility] Address [address] [place] [address] Care Team Providers Care Cost Estimating Clerk Name Role Phone Yonatan Graves DO Primary Care Provider Farida Ortega ORNAMENTAL METAL ERECTOR Unavailable [phone] Source Comments This information has been disclosed [...] release of HIV test results or diagnoses. [id number] Health Encounter Details Date Type Department Care Team (Late st Contact Info) Description 02/09/2024 Orders Only [facility] Gastroenterology at [place] [facility] [address] [facility] [address] [place] [phone] Mario Ramirez MD [address] [facility] [place] [address] Alcoholic cirrhosis of liver with [...] Description 07/28/2024 12:31 PM EST Hospital Encounter [facility] ENDOSCOPY [address] [place] [address] Mario Ramirez MD [address] [place] [address] 07/28/2024 12:31 PM EST - 07/28/2024 1:01 PM EST Surgery [facility] ENDOSCOPY [address] [place] [address] Mario Ramirez MD [address] [place] [address] EGD Scheduled Orders Name Type Priority Associated Diagnoses Orde r Schedule Basic metabolic panel Lab Routine 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) 1 Occurrences starting 02/09/2024 until 08/23/2024 Scheduled Procedures Name Priority Associated Diagnoses Date/Ti [...] documented as of this encounter Care Teams Cost Estimating Clerk Relationship Specialty Start Date End Date Yonatan Graves DO [address] [place] [address] PCP - General 09/02/23 Farida Ortega, ORNAMENTAL METAL ERECTOR [address] [place] [address] Referring Physician Gastroenterology 09/02/23 documented as of this encounter
--- OUTSIDE RECORDS SUMMARY | 2024-05-19 10:17 | XMS_ITS | Encounter Summary ---
Author Organization [facility] Address [facility] [place] [address] Care Team Providers Care Metalworking Specialist Name Role Phone Yonatan Graves DO Primary Care Provider Farida Ortega ATTORNEY GENERAL Unavailable [phone] Source Comments This information has been disclosed [...] release of HIV test results or diagnoses. [id number] Health Encounter Details Date Type Department Care Team (Late st Contact Info) Description 11/05/2023 Orders Only [facility] Gastroenterology at [place] [facility] [address] [place] [phone] Grazyna Velasco MD [address] [place] [address] Alcoholic cirrhosis of liver with [...] Description 07/28/2024 12:31 PM EST Hospital Encounter [facility] ENDOSCOPY [address] [place] [address] Mario Ramirez MD [address] [place] [address] 07/28/2024 12:31 PM EST - 07/28/2024 1:01 PM EST Surgery [facility] ENDOSCOPY [address] [place] [address] Mario Ramirez MD [address] [place] [address] EGD Scheduled Procedures Name Priority Associated Diagnoses [...] documented as of this encounter Care Teams Metalworking Specialist Relationship Specialty Start Date End Date Yonatan Graves DO [address] [place] [address] PCP - General 09/02/23 Farida Ortega, ATTORNEY GENERAL [address] [place] [address] Referring Physician Gastroenterology 09/02/23 documented as of this encounter
--- OUTSIDE RECORDS SUMMARY | 2024-05-19 10:17 | XMS_ITS | Encounter Summary ---
Author Organization [facility] Address [facility] [place] [address] Care Team Providers Care Business Solutions Analyst Name Role Phone Yonatan Graves DO Primary Care Provider Farida Ortega CNC MACHINIST Unavailable [phone] Source Comments This information has been disclosed [...] release of HIV test results or diagnoses. [id number] Health Encounter Details Date Type Department Care Team (Late Contact Info) Description 12/19/2023 Telephone [facility] Gastroenterology at [place] [facility] [address] [place] [phone] Agustin Hurt MD Social History Tobacco Use [...] Encounters Date Type Department Care Team (Late Contact Info) Description 07/28/2024 12:31 PM EST Hospital Encounter [facility] ENDOSCOPY [address] [place] [address] Mario Ramirez MD [address] [place] [address] 07/28/2024 12:31 PM EST - 07/28/2024 1:01 PM EST Surgery [facility] ENDOSCOPY [address] [place] [address] Mario Ramirez MD [address] [place] [address] EGD Scheduled Procedures Name Priority Associated Diagnoses Date/Ti me EGD Alcoholic cirrhosis of liver with ascites ([facility]-HCC) 07/28/2024 12:31 PM EST documented as of this encounter Visit Diagnoses Not on filedocumented in this encounter Additional Health Concerns Assessment Noted Time PHQ-9 Depression Total Score: 13 024 11:52 AM EDT documented as of this encounter Care Teams Business Solutions Analyst Relationship Specialty Start Date End Date Yonatan Graves DO [address] [place] [address] PCP - General 09/02/23 Farida Ortega, CNC MACHINIST [address] [place] [address] Referring Physician Gastroenterology 09/02/23 documented as of this encounter
--- OUTSIDE RECORDS SUMMARY | 2024-05-19 10:17 | XMS_ITS | Encounter Summary ---
Author Organization [facility] Address [address] [place] [address] Care Team Providers Care Supervisor Lace Tearing Name Role Phone Yonatan Graves DO Primary Care Provider Farida Ortega NATIONAL SALES REPRESENTATIVE Unavailable [phone] Source Comments This information has been disclosed [...] release of HIV test results or diagnoses. [id number] Health Reason for Visit * Reason Onset Date Comments Medication Refill 12/10/2023 Encounter Details Date Type Department Care Team (Late st Contact Info) Description 12/10/2023 Refill [facility] Gastroenterology at [place] [facility] [address] [place] [address] Grazyna Velasco MD [address] [place] [address] Social History Tobacco Use Types [...] 07/28/2024 12:31 PM EST Hospital Encounter [facility] ENDOSCOPY [address] [place] [address] Mario Ramirez MD [address] [place] [address] 07/28/2024 12:31 PM EST - 07/28/2024 1:[address] [facility] ENDOSCOPY [address] [place] [address] Mario Ramirez MD [address] [place] [address] EGD Scheduled Procedures Name Priority Associated Diagnoses Date/Ti me EGD Alcoholic cirrhosis of liver with ascites ([facility]-HCC) 07/28/2024 12:31 PM EST documented as of this encounter Visit Diagnoses Not on filedocumented in this encounter Additional Health Concerns Assessment Noted Time PHQ-9 Depression Total Score: 13 024 11:52 AM EDT documented as of this encounter Care Teams Supervisor Lace Tearing Relationship Specialty Start Date End Date Yonatan Graves DO [address] [place] [address] PCP - General 09/02/23 Farida Ortega, NATIONAL SALES REPRESENTATIVE [id number] [place] [phone] Referring Physician Gastroenterology 09/02/23 documented as of this encounter
--- OUTSIDE RECORDS SUMMARY | 2024-05-19 10:17 | XMS_ITS | Encounter Summary ---
Author Organization [facility] Address [facility] [place] [address] Care Team Providers Care Clean Up Person Name Role Phone Yonatan Graves DO Primary Care Provider Farida Ortega QUALITY NURSE Unavailable [phone] Source Comments This information has been disclosed [...] release of HIV test results or diagnoses. [id number] Health Encounter Details Date Type Department Care [...] 07/28/2024 12:31 PM EST Hospital Encounter [facility] ENDOSCOPY [address] [place] [address] Mario Ramirez MD [address] [place] [address] 07/28/2024 12:31 PM EST - 07/28/2024 1:01 PM EST Surgery [facility] ENDOSCOPY [address] [place] [phone] Mario Ramirez MD [address] [place] [address] EGD Scheduled Procedures Name Priority Associated Diagnoses Date/Ti me EGD 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) 07/28/2024 12:31 PM EST documented as of this encounter Visit Diagnoses Not on filedocumented in this encounter Additional Health Concerns Assessment Noted Time PHQ-9 Depression Total Score: 13 024 11:52 AM EDT documented as of this encounter Care Teams Clean Up Person Relationship Specialty Start Date End Date Yonatan Graves DO [address] [place] [address] PCP - General 09/02/23 Farida Ortega, QUALITY NURSE [address] [place] [address] Referring Physician Gastroenterology 09/02/23 documented as of this encounter
--- OUTSIDE RECORDS SUMMARY | 2024-05-19 10:18 | XMS_ITS | Encounter Summary ---
Author Organization [facility] Address [address] [place] [address] Care Team Providers Care Permit Agent Name Role Phone Unknown, Attending Provider Primary [...] release of HIV test results or diagnoses. [id number] Health Encounter Details Date Type Department Care [...] Description 07/28/2024 12:31 PM EST Hospital Encounter [facility] ENDOSCOPY [address] [place] [address] Mario Ramirez MD [address] [place] [address] 07/28/2024 12:31 PM EST - 07/28/2024 1:01 PM EST Surgery [facility] ENDOSCOPY [address] [place] [address] Mario Ramirez MD [address] [place] [address] EGD Scheduled Procedures Name Priority Associated Diagnoses Date/Ti me EGD 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) 07/28/2024 12:31 PM EST documented as of this encounter Visit Diagnoses Not on filedocumented in this encounter Care Teams Permit Agent Relationship Specialty Start Date End Date Unknown, Attending Provider PCP - General 09/01/2308/31 documented as of this encounter
--- OUTSIDE RECORDS SUMMARY | 2024-05-19 10:18 | XMS_ITS | Encounter Summary ---
Author Organization [facility] Address [address] [place] [address] Care Team Providers Care Piping Supervisor Name Role Phone Yonatan Graves DO Primary Care Provider Farida Ortega DIGITAL STRATEGY MANAGER Unavailable [phone] Source Comments This information has been disclosed [...] release of HIV test results or diagnoses. [id number] Health Encounter Details Date Type Department Care Team (Late st Contact Info) Description 09/25/2023 Orders Only [facility] at [address] [address] Abdullahi Cano RN Pre-transplant evaluation for chronic liver disease (Primary Dx); Alcoholic cirrhosis, unspecified whether ascites present ([facility]-HCC) Social History Tobacco Use Types [...] 07/28/2024 12:31 PM EST Hospital Encounter [facility] ENDOSCOPY [address] [place] [address] Mario Ramirez MD [address] [place] [address] 07/28/2024 12:31 PM EST - 07/28/2024 1:01 PM EST Surgery [facility] ENDOSCOPY [address] [place] [phone] Mario Ramirez MD [address] [place] [address] EGD Scheduled Procedures Name Priority Associated Diagnoses Date/Ti me EGD 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) 07/28/2024 12:31 PM EST documented as of this encounter Results * Urine Drug Screen, Comprehensive Panel Screen/Confirmation (09/25/2023 1:12 PM EDT) BARBITURATES NOT PRESENT 09/29/2023 1:52 PM EDT [facility] BENZODIAZEPINES NOT PRESENT 09/29/19 1:52 PM EDT [facility] CANNABINOIDS PRESENT 09/29/2023 1:52 PM EDT [facility] THC-COOH 66 ng/mL 09/29/2023 1:52 PM EDT [facility] STATION REPAIRER STIMULANTS NOT PRESENT 1:52 PM EDT [facility] OPIOID ANALGESICS NOT PRESENT 2023 1:52 PM EDT [facility] OPIOID ANTAGONISTS NOT PRESENT 09/28 1:52 PM EDT [facility] SEDATIVES/MUSCLE RELAXANTS NOT PRESENT 09/29/2023 1:52 PM EDT [facility] TRICYCLIC ANTIDEPRESSANTS NOT PRESENT 09/29/2023 1:52 PM EDT [facility] Creatinine, Ur 26.30 mg/dL 09/26/2023 10:39 AM EDT [facility] Comment:Reference range not established for this test. pH 7.0 4.7 - 7.8 09/26/2023 10:39 AM EDT [facility] Specific [place] 1.013 1.003 - 1.035 09/26/2023 10:39 AM EDT [facility] Urine 09/25/2023 1:12 PM EDT 09/25/2023 1:23 PM EDT Narrative [facility] - 09/29/2023 1:52 PM EDT This test has been developed and its performance characteristics determined by [facility] which is certified under the Clinical Laboratory Improvement Amendment of 1988 (CLIA-88) to perform high complexity testing. ??The test has not been cleared or approved by the US Food and Drug Administration (FDA). The FDA has determined that such clearance is not necessary. ??The test should be used for clinical purposes and is not regarded as investigational. Agustin Hurt MD URINE ORDERABLES Final Result Performing Organization Address City/State/[facility] Co de Phone Number [facility] [address] documented in this encounter Visit Diagnoses Diagnosis Pre-transplant evaluation for chronic liver disease- Primary Alcoholic cirrhosis, unspecified whether ascites present (CMS-HCC) Pre-transplant evaluation for chronic liver disease Alcoholic cirrhosis, unspecified whether ascites present (CMS-HCC) 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) documented in this encounter Additional Health Concerns Assessment Noted Time PHQ-9 Depression Total Score: 13 024 11:52 AM EDT documented as of this encounter Care Teams Piping Supervisor Relationship Specialty Start Date End Date Yonatan Graves DO [address] [place] [address] PCP - General 09/02/23 Farida Ortega NP [address] [place] [address] Referring Physician Gastroenterology 09/02/23 documented as of this encounter
--- OUTSIDE RECORDS SUMMARY | 2024-05-19 10:18 | XMS_ITS | Encounter Summary ---
Author Organization [facility] Address [facility] [place] [address] Care Team Providers Care Data Analyst Name Role Phone Yonatan Graves DO Primary Care Provider Farida Ortega AIRPORT ELECTRICIAN Unavailable [phone] Source Comments This information has been disclosed [...] release of HIV test results or diagnoses. [id number] Health Encounter Details Date Type Department Care Team (Latest Contact Info) Description 09/05/2023 4:09 PM EDT - 09/05/2023 11:59 PM EDT Hospital Encounter [facility] Radiology at [place] [facility] [address] [facility] [address] [place] [address] System, Provider Not In Discharge Disposition: Home [...] Description 07/28/2024 12:31 PM EST Hospital Encounter [facility] ENDOSCOPY [address] [place] [address] Mario Ramirez MD [address] [place] [address] 07/28/2024 12:31 PM EST - 07/28/2024 1:01 PM EST Surgery [facility] ENDOSCOPY [address] [place] [address] Mario Ramirez MD [address] [place] [address] EGD Scheduled Procedures Name Priority Associated Diagnoses Date/Ti me EGD Alcoholic cirrhosis of liver with ascites ([facility]-HCC) 07/28/2024 12:31 PM EST documented as of [...] on filedocumented in this encounter Care Teams Data Analyst Relationship Specialty Start Date End Date Yonatan Graves DO [address] [place] [address] PCP - General 09/02/23 Farida Ortega, AIRPORT ELECTRICIAN [address] [address] Referring Physician Gastroenterology 09/02/23 documented as of this encounter
--- OUTSIDE RECORDS SUMMARY | 2024-05-19 10:18 | XMS_ITS | Encounter Summary ---
Author Organization [facility] Address [address] [place] [address] Care Team Providers Care Sprinkler Tender Name Role Phone Yonatan Graves DO Primary Care Provider Farida Ortega ALARM MECHANIC Unavailable [phone] Source Comments This information has been disclosed [...] release of HIV test results or diagnoses. [id number] Health Reason for Visit * Reason Comments Imaging Encounter Details Date Type Department Care Team (Late st Contact Info) Description 09/05/2023 Telephone [facility] Gastroenterology at [place] [facility] [address] [place] [address] Agustin Hurt MD Imaging Social History Tobacco [...] Description 07/28/2024 12:31 PM EST Hospital Encounter [facility] ENDOSCOPY [address] [place] [phone] Mario Ramirez MD [address] [place] [address] 07/28/2024 12:31 PM EST - 07/28/2024 1:01 PM EST Surgery [facility] ENDOSCOPY [address] [place] [address] Mario Ramirze MD [address] [place] [address] EGD Scheduled Procedures Name Priority Associated Diagnoses Date/Ti me EGD 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) 07/28/2024 12:31 PM EST documented as of this encounter Visit Diagnoses Not on filedocumented in this encounter Care Teams Sprinkler Tender Relationship Specialty Start Date End Date Yonatan Graves DO [address] [place] [address] PCP - General 09/02/23 Farida Ortega, ALARM MECHANIC [address] [place] [address] Referring Physician Gastroenterology 09/02/23 documented as of this encounter
--- OUTSIDE RECORDS SUMMARY | 2024-05-19 10:18 | XMS_ITS | Encounter Summary ---
Author Organization [facility] Address [facility] [place] [address] Care Team Providers Care Geophysical Laboratory Chief Name Role Phone Yonatan Graves DO Primary Care Provider Farida Ortega KINDER TEACHER Unavailable [phone] Source Comments This information has been disclosed [...] release of HIV test results or diagnoses. [id number] Health Reason for Visit * Reason Comments Medication Refill Encounter Details Date Type Department Care Team (Late st Contact Info) Description 11/04/2023 Refill [facility] [address] [address] Grazyna Velasco MD [address] [place] [address] Social History Tobacco Use Types [...] 07/28/2024 12:31 PM EST Hospital Encounter [facility] ENDOSCOPY [address] [place] [address] Mario Ramirez MD [address] [place] [address] 07/28/2024 12:31 PM EST - 07/28/2024 1:[address] [facility] ENDOSCOPY [address] [place] [address] Mario Ramirez MD [address] [place] [address] EGD Scheduled Procedures Name Priority Associated Diagnoses Date/Ti me EGD Alcoholic cirrhosis of liver with ascites ([facility]) 07/28/2024 12:31 PM EST documented as of this encounter Visit Diagnoses Not on filedocumented in this encounter Additional Health Concerns Assessment Noted Time PHQ-9 Depression Total Score: 13 024 11:52 AM EDT documented as of this encounter Care Teams Geophysical Laboratory Chief Relationship Specialty Start Date End Date Yonatan Graves DO [address] [place] [address] PCP - General 09/02/23 Farida Ortega, KINDER TEACHER [address] [place] [address] Referring Physician Gastroenterology 09/02/23 documented as of this encounter
--- OUTSIDE RECORDS SUMMARY | 2024-05-19 10:18 | XMS_ITS | Encounter Summary ---
Author Organization [facility] Address [facility] [place] [address] Care Team Providers Care Information Security Officer Name Role Phone Yonatan Graves DO Primary Care Provider Farida Ortega EDGE SAWYER Unavailable [phone] Source Comments This information has been disclosed [...] release of HIV test results or diagnoses. [id number] Health Encounter Details Date Type Department Care Team (Late st Contact Info) Description 09/02/2023 Orders Only [facility] Lab [address] [place] [address] Alyssa Lerma Social History Tobacco Use Types [...] Description 07/28/2024 12:31 PM EST Hospital Encounter [facility] ENDOSCOPY [address] [place] [address] Mario Ramirez MD [address] [place] [address] 07/28/2024 12:31 PM EST - 07/28/2024 1:01 PM EST Surgery [facility] ENDOSCOPY [address] [place] [address] Mario Ramirez MD [address] [place] [address] EGD Scheduled Procedures Name Priority Associated Diagnoses Date/Ti me EGD Alcoholic cirrhosis of liver with ascites ([facility]) 07/28/2024 12:31 PM EST documented as of this encounter Visit Diagnoses Not on filedocumented in this encounter Care Teams Information Security Officer Relationship Specialty Start Date End Date Yonatan Graves DO [address] [place] [address] PCP - General 09/02/23 Farida Ortega, EDGE SAWYER [address] [place] [address] Referring Physician Gastroenterology 09/02/23 documented as of this encounter
--- OUTSIDE RECORDS SUMMARY | 2024-05-19 10:18 | XMS_ITS | Encounter Summary ---
Author Organization [facility] Address [address] [place] [address] Care Team Providers Care Factory Manager Name Role Phone Yonatan Graves DO Primary Care Provider Farida Ortega BULLDOZER MECHANIC Unavailable [phone] Source Comments This information has been disclosed [...] release of HIV test results or diagnoses. [id number] Reason for Visit * Reason Comments Decompensated hepatic cirrhosis Encounter Details Date Type Department Care Team (Latest Contact Info) Description 10/23/2023 9:40 AM EDT Office Visit [facility] Gastroenterology at [facility] Office [address] [place] [address] Agustin Hurt MD Alcoholic cirrhosis of liver [...] Hepatology Clinic Note Name: Mindy Wade CSN: [id number] Referring Physician: Hilda Shepherd MD Chief Complaint: [...] diagnosed with liver disease. She then saw [facility] transplant center in October 2022 for transplant [...] social work. Patient was evaluated by transplant nephrology social worker at in December 2022, where [...] Jul 2023 and then underwent detox at [facility] The patient states that she used to only socially drink alcohol and alcohol use started maybe 5 years ago. She said over the time she started to increase her alcohol intake up to 6 wine coolers a day. From the social work at [facility] it was felt that the patient needed [...] cessation of alcohol. She saw our transplant nephrology social worker and it was recommended that [...] evaluation. She was seen by our transplant nephrology social worker here at and patient needed [...] liver pathology. Agustin Hurt MD Transplant Hepatology [phone] (p) * Britney Ann RN - 10/23/2023 9:40 AM EDT RN went to room to assist pt is scheduling MRI. Pt declined having done here at [facility]. Wants done locally but they unsure whre. RN prined order. RN directed if we need to fax order once determinewhere and location would lie to have done, let office know and we can fax the order. documented in this encounter Plan of Treatment Upcoming Encounters Date Type Department Care Team (Late st Contact Info) Description 07/28/2024 12:31 PM EST Hospital Encounter [facility] ENDOSCOPY [address] [place] [address] Mario Ramirez MD [address] [place] [address] 07/28/2024 12:31 PM EST - 07/28/2024 1:01 PM EST Surgery [facility] ENDOSCOPY [address] [place] [address] Mario Ramirez MD [address] [place] [address] EGD Scheduled Procedures Name Priority Associated Diagnoses Date/Ti me EGD Alcoholic cirrhosis of liver with ascites ([facility]) 07/28/2024 12:31 PM EST documented as of [...] AM EDT 10/23/2023 6:52 PM EDT us Agustin Hurt MD LAB BLOOD ORDERABLES Final Res ult [facility] [address] [facility]. [address] * (ABNORMAL) CBC (10/23/2023 11:33 AM EDT) WBC 4.8 3.8 - 10.8 10E3/uL 10/23/2023 7:05 PM EDT [facility] RBC 2.99(L) 3.80 - 5.10 10E6/uL 10/23/2023 7:05 PM EDT [facility] Hemoglobin 11.4(L) 11.7 - 15.5 g/dL 10/23/2023 7:05 PM EDT [facility] Hematocrit 32.0(L) 35.0 - 45.0 % 10/23/2023 7:05 PM EDT [facility] MCV 107.2(H) 80.0 - 100.0 fL 10/23/2023 7:05 PM EDT [facility] MCH 38.1(H) 27.0 - 33.0 pg 10/23/2023 7:05 PM EDT [facility] MCHC 35.5 32.0 - 36.0 g/dL 10/23/2023 7:05 PM EDT [facility] RDW 14.1 11.0 - 15.0 % 10/23/2023 7:05 PM EDT [facility] Platelets 98(L) 140 - 400 10E3/uL 10/23/2023 7:05 PM EDT [facility] MPV 9.1 7.5 - 11.5 fL 10/23/2023 7:05 PM EDT [facility] Whole Blood 10/23/2023 11:3 3 AM EDT 10/23/2023 6:56 PM EDT us Agustin Hurt MD LAB BLOOD ORDERABLES Final Res ult [facility] [address] * (ABNORMAL) Renal Function Panel w/EGFR (10/23/2023 11:33 AM EDT) Sodium 132(L) 133 - 146 mmol/L 10/23/2023 7:15 PM EDT [facility] Potassium 4.0 3.5 - 5.3 mmol/L 10/23/2023 7:15 PM EDT [facility] Chloride 97(L) 98 - 110 mmol/L 10/23/2023 7:15 PM EDT [facility] CO2 27 21 - 33 mmol/L 10/23/2023 7:15 PM EDT [facility] Anion Gap 8 3 - 16 mmol/L 10/23/2023 7:15 PM EDT [facility] BUN 10 7 - 25 mg/dL 10/23/2023 7:15 PM EDT [facility] Creatinine 0.88 0.60 - 1.30 mg/dL 10/23/2023 7:15 PM EDT [facility] Glucose 91 70 - 100 mg/dL 10/23/2023 7:15 PM EDT [facility] Calcium 9.0 8.6 - 10.3 mg/dL 10/23/2023 7:15 PM EDT [facility] Phosphorus 4.1 2.1 - 4.7 mg/dL 10/23/2023 7:15 PM EDT [facility] Albumin 3.4(L) 3.5 - 5.7 g/dL 10/23/2023 7:15 PM EDT [facility] Osmolality, Calculated 273(L) 278 - 305 mOsm/kg 10/23/2023 7:15 PM EDT [facility] EGFR 89 10/23/2023 7:15 PM EDT [facility] Comment:As of 2021, the [...] ORDERABLES Final Res ult Performing Organization Address [facility] Co de Phone Number [facility] [address] * (ABNORMAL) Hepatic Function Panel (10/23/2023 11:33 AM EDT) Total Bilirubin 3.6(H) 0.0 - 1.5 mg/dL 10/23/2023 7:15 PM EDT [facility] Bilirubin, Direct 1.40(H) 0.00 - 0.40 mg/dL 10/23/2023 7:15 PM EDT [facility] AST 53(H) 13 - 39 U/L 10/23/2023 7:15 PM EDT [facility] ALT 45 7 - 52 U/L 10/23/2023 7:15 PM EDT [facility] Alkaline Phosphatase 136(H) 36 - 125 U/L 10/23/2023 7:15 PM EDT [facility] Total Protein 7.2 6.4 - 8.9 g/dL 10/23/2023 7:15 PM EDT [facility] Albumin 3.4(L) 3.5 - 5.7 g/dL 10/23/2023 7:15 PM EDT [facility] Bilirubin, Indirect 2.20(H) 0.00 - 1.10 mg/dL 10/23/2023 7:15 PM EDT [facility] Plasma 10/23/2023 11:3 3 AM EDT 10/23/2023 6:57 PM EDT us Agustin Hurt MD LAB BLOOD ORDERABLES Final Res ult [facility] [address] documented in this encounter Visit Diagnoses Diagnosis 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)- Primary 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) documented in this encounter Additional Health Concerns Assessment Noted Time PHQ-9 Depression Total Score: 13 024 11:52 AM EDT documented as of this encounter Care Teams Factory Manager Relationship Specialty Start Date End Date Yonatan Graves DO [address] [place] [address] PCP - General 09/02/23 Farida Ortega, BULLDOZER MECHANIC [address] [place] [address] Referring Physician Gastroenterology 09/02/23 documented as of this encounter
--- OUTSIDE RECORDS SUMMARY | 2024-05-19 10:18 | XMS_ITS | Encounter Summary ---
Author Organization [facility] Address [address] [place] [address] Care Team Providers Care Typer Name Role Phone Yonatan Graves DO Primary Care Provider Farida Ortega PROTECTION AGENT Unavailable [phone] Source Comments This information has been disclosed [...] release of HIV test results or diagnoses. [id number] Health Encounter Details Date Type Department Care Team (Late st Contact Info) Description 09/04/[address] [facility] Kidney Transplant at [address] [place] [address] Niya Tripp Patient is financially cleared for [...] for patient/donor needs to be done at [facility] documented in this encounter Plan of Treatment Upcoming Encounters Date Type Department Care Team (Late st Contact Info) Description 07/28/2024 12:31 PM EST Hospital Encounter [facility] ENDOSCOPY [address] [place] [address] Mario Ramirez MD [address] [place] [address] 07/28/2024 12:31 PM EST - 07/28/2024 1:01 PM EST Surgery [facility] ENDOSCOPY [address] [place] [address] Mario Ramirez MD [address] [place] [address] EGD Scheduled Procedures Name Priority Associated Diagnoses Date/Ti me EGD 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) 07/28/2024 12:31 PM EST documented as of this encounter Visit Diagnoses Not on filedocumented in this encounter Care Teams Typer Relationship Specialty Start Date End Date Yonatan Graves DO [address] [place] [address] PCP - General 09/02/23 Farida Ortega, PROTECTION AGENT [address] [place] [address] Referring Physician Gastroenterology 09/02/23 documented as of this encounter
--- OUTSIDE RECORDS SUMMARY | 2024-05-19 10:18 | XMS_ITS | Encounter Summary ---
Author Organization [facility] Address [address] [place] [address] Care Team Providers Care Gerontology Aide Name Role Phone Yonatan Graves DO Primary Care Provider Farida Ortega MINERAL MIXER Unavailable [phone] Source Comments This information has been disclosed [...] release of HIV test results or diagnoses. [id number] Health Encounter Details Date Type Department Care Team (Late st Contact Info) Description 09/02/2023 Chart Note [facility] Liver Transplant at [facility] [address] [facility] [address] [place] [address] Kelly Silverio MA Social History [...] Hospital Encounter [facility] ENDOSCOPY [address] [place] [address] Mario Ramirez MD [address] [place] [address] 07/28/2024 12:31 PM EST - 07/28/2024 1:01 PM EST Surgery [facility] ENDOSCOPY [address] [place] [address] Mario Ramirez MD [address] [place] [address] EGD Scheduled Procedures Name Priority Associated Diagnoses Date/Ti me EGD Alcoholic cirrhosis of liver with ascites ([facility]-HCC) 07/28/2024 12:31 PM EST documented as of this encounter Visit Diagnoses Not on filedocumented in this encounter Care Teams Gerontology Aide Relationship Specialty Start Date End Date Yonatan Graves DO [address] [place] [address] PCP - General 09/02/23 Farida Ortega, MINERAL MIXER [address] [place] [address] Referring Physician Gastroenterology 09/02/23 documented as of this encounter
--- OUTSIDE RECORDS SUMMARY | 2024-05-19 10:18 | XMS_ITS | Encounter Summary ---
Author Organization [facility] Address [address] [place] [address] Care Team Providers Care Skin Diver Name Role Phone Yonatan Graves DO Primary Care Provider Farida Ortega HAND BINDER CUTTER Unavailable [phone] Source Comments This information has been disclosed [...] release of HIV test results or diagnoses. [id number] Reason for Visit * Reason Onset Date Comments Medication Refill 11/02/2023 Refill Request 3rd Attempt Encounter Details Date Type Department Care Team (Late st Contact Info) Description 11/02/2023 Refill [facility] Gastroenterology at [address] [address] Agustin Hurt MD Social History Tobacco [...] return call. Pt can be reached at [phone] * Telephone Encounter - Abida Ryan MA [...] PHARMACY & PHONE #: [id number] - [place] - [address] [facility] [address] [place] [address] [address] [address] DATE OF LAST APPT: 10/23/2023 Agustin Hurt MD DATE OF NEXT APPT: 03/22/2024 Agustin Hurt MD * Telephone Encounter - Nadya Jackman MA - 11/03/2023 7:23 AM EDT Possible duplicate. Please review. documented in this encounter Plan of Treatment Upcoming Encounters Date Type Department Care Team (Late st Contact Info) Description 07/28/2024 12:31 PM EST Hospital Encounter [facility] ENDOSCOPY [address] [place] [address] Mario Ramirez MD [address] [place] [address] 07/28/2024 12:31 PM EST - 07/28/2024 1:01 PM EST Surgery [facility] ENDOSCOPY [address] [place] [address] Mario Ramirez MD [address] [place] [address] EGD Scheduled Procedures Name Priority Associated Diagnoses Date/Ti me EGD 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) 07/28/2024 12:31 PM EST documented as of this encounter Visit Diagnoses Not on filedocumented in this encounter Additional Health Concerns Assessment Noted Time PHQ-9 Depression Total Score: 13 024 11:52 AM EDT documented as of this encounter Care Teams Skin Diver Relationship Specialty Start Date End Date Yonatan Graves DO [address] [place] [address] PCP - General 09/02/23 Farida Ortega, HARLEEN [address] [place] [address] Referring Physician Gastroenterology 09/02/23 documented as of this encounter
--- OUTSIDE RECORDS SUMMARY | 2024-05-19 10:18 | XMS_ITS | Encounter Summary ---
Author Organization [facility] Address [facility] [place] [address] Care Team Providers Care Interrelated Special Education Teacher Name Role Phone Yonatan Graves DO Primary Care Provider Farida Ortega BOOT AND SADDLE REPAIR PERSON Unavailable [phone] Source Comments This information has been disclosed [...] release of HIV test results or diagnoses. [id number] Health Encounter Details Date Type Department Care Team (Latest Contact Info) Description 09/05/2023 4:09 PM EDT - 09/05/2023 11:59 PM EDT Hospital Encounter [facility] at [facility] [address] [facility] [address] [place] [address] System, Provider Not In Discharge [...] Description 07/28/2024 12:31 PM EST Hospital Encounter [facility] ENDOSCOPY [address] [place] [address] Mario Ramirez MD [address] [place] [address] 07/28/2024 12:31 PM EST - 07/28/2024 1:01 PM EST Surgery [facility] ENDOSCOPY [address] [place] [address] Mario Ramirez MD [address] [place] [address] EGD Scheduled Procedures Name Priority Associated Diagnoses [...] on filedocumented in this encounter Care Teams Interrelated Special Education Teacher Relationship Specialty Start Date End Date Yonatan Graves DO [address] [place] [address] PCP - General 09/02/23 Farida Ortega, BOOT AND SADDLE REPAIR PERSON [address] [address] Referring Physician Gastroenterology 09/02/23 documented as of this encounter
--- OUTSIDE RECORDS SUMMARY | 2024-05-19 10:18 | XMS_ITS | Encounter Summary ---
Author Organization [facility] Address [address] [place] [address] Care Team Providers Care Aircraft Refueller Name Role Phone Yonatan Graves DO Primary Care Provider Farida Ortega STONE CLEANER Unavailable [phone] Source Comments This information has been disclosed [...] release of HIV test results or diagnoses. [id number] Reason for Visit * Reason Onset Date Comments Medication Refill 10/31/2023 Refill Request 2nd Attempt Encounter Details Date Type Department Care Team (Late st Contact Info) Description 10/31/2023 Refill [facility] Gastroenterology at [address] [address] Agustin Hurt MD Social History [...] as possible Pt can be reached at [phone] * Telephone Encounter - Leanne Benavides MA - 11/03/2023 9:13 AM EDT Last OV: 10/23/2023 Next OV: 03/22/2024 Last Labs: 10/23/2023 Last refill: Comment: documented in this encounter Plan of Treatment Upcoming Encounters Date Type Department Care Team (Late st Contact Info) Description 07/28/2024 12:31 PM EST Hospital Encounter [facility] ENDOSCOPY [address] [place] [address] Mario Ramirez MD [address] [place] [address] 07/28/2024 12:31 PM EST - 07/28/2024 1:01 PM EST Surgery [facility] ENDOSCOPY [address] [place] [address] Mario Ramirez MD [address] [place] [address] EGD Scheduled Procedures Name Priority Associated Diagnoses Date/Ti ri EGD 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) 07/28/2024 12:31 PM EST documented as of this encounter Visit Diagnoses Not on filedocumented in this encounter Additional Health Concerns Assessment Noted Time PHQ-9 Depression Total Score: 13 024 11:52 AM EDT documented as of this encounter Care Teams Aircraft Refueller Relationship Specialty Start Date End Date Yonatan Graves DO [address] [place] [address] PCP - General 09/02/23 Farida Ortega, STONE CLEANER [address] [place] [address] Referring Physician Gastroenterology 09/02/23 documented as of this encounter
--- OUTSIDE RECORDS SUMMARY | 2024-05-19 10:18 | XMS_ITS | Encounter Summary ---
Author Organization [facility] Address [address] [place] [address] Care Team Providers Care Product Marketing Consultant Name Role Phone Yonatan Graves DO Primary Care Provider Farida Ortega CRUISE AGENT Unavailable [phone] Source Comments This information has been disclosed [...] release of HIV test results or diagnoses. [id number] Health Encounter Details Date Type Department Care Team (Late st Contact Info) Description 10/29/2023 Chart Note [facility] Liver Transplant at [address] [place] [address] Abdullahi Cano RN Reviewed with [facility]. Will [...] referral. Refer to ORALIA note for details. documented in this encounter Plan of Treatment Upcoming Encounters Date Type Department Care Team (Late st Contact Info) Description 07/28/2024 12:31 PM EST Hospital Encounter [facility] ENDOSCOPY [address] [place] [address] Mario Ramirez MD [address] [place] [address] 07/28/2024 12:31 PM EST - 07/28/2024 1:01 PM EST Surgery [facility] ENDOSCOPY [address] [place] [address] Mario Ramirez MD [address] [place] [address] EGD Scheduled Procedures Name Priority Associated Diagnoses Date/Ti me EGD 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) 07/28/2024 12:31 PM EST documented as of this encounter Visit Diagnoses Not on filedocumented in this encounter Additional Health Concerns Assessment Noted Time PHQ-9 Depression Total Score: 13 024 11:52 AM EDT documented as of this encounter Care Teams Product Marketing Consultant Relationship Specialty Start Date End Date Yonatan Graves DO [address] [place] [address] PCP - General 09/02/23 Farida Ortega NP [address] [place] [address] Referring Physician Gastroenterology 09/02/23 documented as of this encounter
--- OUTSIDE RECORDS SUMMARY | 2024-05-19 10:18 | XMS_ITS | Encounter Summary ---
Author Organization [facility] Address [address] [place] [address] Care Team Providers Care Gear Repairer Name Role Phone Yonatan Graves DO Primary Care Provider Farida Ortega TRAVELING PLANT OPERATOR Unavailable [phone] Source Comments This information has been disclosed [...] release of HIV test results or diagnoses. [id number] Reason for Visit * Reason Comments Labs Only Encounter Details Date Type Department Care Team (Late Contact Info) Description 10/23/2023 11:15 AM EDT Specimen [facility] Outreach Lab [address] [facility] [address] [place] [phone] Agustin Hurt MD Alcoholic cirrhosis of liver [...] Description 07/28/2024 12:31 PM EST Hospital Encounter [facility] ENDOSCOPY [address] [place] [phone] Mario Ramirez MD [address] [place] [address] 07/28/2024 12:31 PM EST - 07/28/2024 1:01 PM EST Surgery [facility] ENDOSCOPY [address] [place] [phone] Mario Ramirez MD [address] [place] [address] EGD Scheduled Procedures Name Priority Associated Diagnoses [...] - 15.1 seconds 10/23/2023 7:35 PM EDT [facility] INR 1.4(H) 0.9 - 1.1 10/23/2023 7:35 PM EDT [facility] Comment: RECOMMENDED THERAPEUTIC RANGES USING INR : ?Stable oral anticoagulant therapy: ? 2.0 - 3.0 ?Mechanical prosthetic heart valve: ? 2.5 - 3.5 ?Recurrent acute myocardial infarction: ? 2.5 - 3.5 Plasma 10/23/2023 11:3 3 AM EDT 10/23/2023 6:52 PM EDT us Agustin Hurt MD LAB BLOOD ORDERABLES Final Res ult [facility] [address] [facility]. [address] * (ABNORMAL) CBC (10/23/2023 11:33 AM EDT) WBC 4.8 3.8 - 10.8 10E3/uL 10/23/2023 7:05 PM EDT [facility] RBC 2.99(L) 3.80 - 5.10 10E6/uL 10/23/2023 7:05 PM EDT [facility] Hemoglobin 11.4(L) 11.7 - 15.5 g/dL 10/23/2023 7:05 PM EDT [facility] Hematocrit 32.0(L) 35.0 - 45.0 % 10/23/2023 7:05 PM EDT [facility] MCV 107.2(H) 80.0 - 100.0 fL 10/23/2023 7:05 PM EDT [facility] MCH 38.1(H) 27.0 - 33.0 pg 10/23/2023 7:05 PM EDT [facility] MCHC 35.5 32.0 - 36.0 g/dL 10/23/2023 7:05 PM EDT [facility] RDW 14.1 11.0 - 15.0 % 10/23/2023 7:05 PM EDT [facility] Platelets 98(L) 140 - 400 10E3/uL 10/23/2023 7:05 PM EDT [facility] MPV 9.1 7.5 - 11.5 fL 10/23/2023 7:05 PM EDT [facility] Whole Blood 10/23/2023 11:3 3 AM EDT 10/23/2023 6:56 PM EDT us Agustin Hurt MD LAB BLOOD ORDERABLES Final Res ult [facility] [address] [place] [address], [facility] * (ABNORMAL) Renal Function Panel w/EGFR (10/23/2023 11:33 AM EDT) Sodium 132(L) 133 - 146 mmol/L 10/23/2023 7:15 PM EDT [facility] Potassium 4.0 3.5 - 5.3 mmol/L 10/23/2023 7:15 PM EDT [facility] Chloride 97(L) 98 - 110 mmol/L 10/23/2023 7:15 PM EDT [facility] CO2 27 21 - 33 mmol/L 10/23/2023 7:15 PM EDT [facility] Anion Gap 8 3 - 16 mmol/L 10/23/2023 7:15 PM EDT [facility] BUN 10 7 - 25 mg/dL 10/23/2023 7:15 PM EDT [facility] Creatinine 0.88 0.60 - 1.30 mg/dL 10/23/2023 7:15 PM EDT [facility] Glucose 91 70 - 100 mg/dL 10/23/2023 7:15 PM EDT [facility] Calcium 9.0 8.6 - 10.3 mg/dL 10/23/2023 7:15 PM EDT [facility] Phosphorus 4.1 2.1 - 4.7 mg/dL 10/23/2023 7:15 PM EDT [facility] Albumin 3.4(L) 3.5 - 5.7 g/dL 10/23/2023 7:15 PM EDT [facility] Osmolality, Calculated 273(L) 278 - 305 mOsm/kg 10/23/2023 7:15 PM EDT [facility] EGFR 89 10/23/2023 7:15 PM EDT [facility] Comment:As of 2021, the estimated GFR [...] MD LAB BLOOD ORDERABLES Final Res ult [facility] [address] [id number], [facility] * (ABNORMAL) Hepatic Function Panel (10/23/2023 11:33 AM EDT) Total Bilirubin 3.6(H) 0.0 - 1.5 mg/dL 10/23/2023 7:15 PM EDT [facility] Bilirubin, Direct 1.40(H) 0.00 - 0.40 mg/dL 10/23/2023 7:15 PM EDT [facility] AST 53(H) 13 - 39 U/L 10/23/2023 7:15 PM EDT [facility] ALT 45 7 - 52 U/L 10/23/2023 7:15 PM EDT [facility] Alkaline Phosphatase 136(H) 36 - 125 U/L 10/23/2023 7:15 PM EDT [facility] Total Protein 7.2 6.4 - 8.9 g/dL 10/23/2023 7:15 PM EDT [facility] Albumin 3.4(L) 3.5 - 5.7 g/dL 10/23/2023 7:15 PM EDT [facility] Bilirubin, Indirect 2.20(H) 0.00 - 1.10 mg/dL 10/23/2023 7:15 PM EDT [facility] Plasma 10/23/2023 11:3 3 AM EDT 10/23/2023 6:57 PM EDT us Agustin Hurt MD LAB BLOOD ORDERABLES Final Res ult [facility] [address] documented in this encounter Visit Diagnoses Diagnosis 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) 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) documented in this encounter Additional Health Concerns Assessment Noted Time PHQ-9 Depression Total Score: 13 024 11:52 AM EDT documented as of this encounter Care Teams Gear Repairer Relationship Specialty Start Date End Date Yonatan Graves DO [address] [place] [address] PCP - General 09/02/23 Farida Ortega, TRAVELING PLANT OPERATOR [address] [place] [address] Referring Physician Gastroenterology 09/02/23 documented as of this encounter
--- OUTSIDE RECORDS SUMMARY | 2024-05-19 10:18 | XMS_ITS ---
Author Organization [facility] Address [address] [place] [address] Care Team Providers Care Promotion Writer Name Role Phone Yonatan Graves DO Primary Care Provider Farida Ortega DIRECTOR OPERATING Unavailable [phone] Transplant Episode Liver Candidate [facility] ([place], [place]) - [facility] Referred on 09/02/2023 Marked as Ineligible on 10/29/2023 Reason: Psychosocial Impediments Liver CoordinatorAbdullahi Cano RN Phone: N/A Fax: N/A Email: N/A Scores Score Value Updated Expires Exceptions/Lorena sons CPRA Not available UNOS MELD Not available MELD (Calc) 15 05/12/2024 Care Team Name Role Phone Fax Email Abdullahi Cano RN Liver Coordinator N/A N/A N/A Abdullahi Cano RN Txp Pre Coordinator N/A N/A N/A Farida Ortega NP Referring Physician N/A N/A N/A ASIM Selby, DIRECTOR OF MARKETING COMMUNICATIONS Txp Mentally Retarded Teacher N/A N/A N/A Events Pre-Transplant Referred: 09/02/2023
--- OUTSIDE RECORDS SUMMARY | 2024-05-19 10:18 | XMS_ITS | Encounter Summary ---
Author Organization [facility] Address [address] [place] [address] Care Team Providers Care Steam Table Worker Name Role Phone Yonatan Graves DO Primary Care Provider Farida Ortega END LATHE OPERATOR Unavailable [phone] Source Comments This information has been disclosed [...] release of HIV test results or diagnoses. [id number] Health Encounter Details Date Type Department Care Team (Late st Contact Info) Description 09/02/2023 Chart Note [facility] Liver Transplant at [address] [address] Abdullahi Cano RN Referral for liver transplant [...] Description 07/28/2024 12:31 PM EST Hospital Encounter [facility] ENDOSCOPY [address] [place] [address] Mario Ramirez MD [address] [place] [address] 07/28/2024 12:31 PM EST - 07/28/2024 1:01 PM EST Surgery [facility] ENDOSCOPY [address] [place] [phone] Mario Ramirez MD [address] [place] [phone] EGD Scheduled Procedures Name Priority Associated Diagnoses Date/Ti sd EGD Alcoholic cirrhosis of liver with ascites ([facility]-HCC) 07/28/2024 12:31 PM EST documented as of this encounter Visit Diagnoses Not on filedocumented in this encounter Care Teams Steam Table Worker Relationship Specialty Start Date End Date Yonatan Graves DO [address] [place] [address] PCP - General 09/02/23 Farida Ortega, END LATHE OPERATOR [address] [place] [phone] Referring Physician Gastroenterology 09/02/23 documented as of this encounter
--- OUTSIDE RECORDS SUMMARY | 2024-05-19 10:18 | XMS_ITS | Encounter Summary ---
Author Organization [facility] Address [address] [place] [address] Care Team Providers Care Senior Program Manager Name Role Phone Yonatan Graves DO Primary Care Provider Farida Ortega YARROW GATHERER Unavailable [phone] Source Comments This information has been disclosed [...] release of HIV test results or diagnoses. [id number] Reason for Visit * Reason Onset Date Comments Medication Refill 10/31/2023 Refill Request 3rd Attempt Encounter Details Date Type Department Care Team (Late st Contact Info) Description 10/31/2023 Refill [facility] Gastroenterology at [address] [address] Agustin Hurt MD Social History [...] Description 07/28/2024 12:31 PM EST Hospital Encounter [facility] ENDOSCOPY [address] [place] [address] Mario Ramirez MD [address] [place] [phone] 07/28/2024 12:31 PM EST - 07/28/2024 1:01 PM EST Surgery [facility] ENDOSCOPY [address] [place] [phone] Mairo Ramirez MD [address] [place] [phone] EGD Scheduled Procedures Name Priority Associated Diagnoses Date/Ti me EGD 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) 07/28/2024 12:31 PM EST documented as of this encounter Visit Diagnoses Not on filedocumented in this encounter Additional Health Concerns Assessment Noted Time PHQ-9 Depression Total Score: 13 024 11:52 AM EDT documented as of this encounter Care Teams Senior Program Manager Relationship Specialty Start Date End Date Yonatan Graves DO [address] [place] [address] PCP - General 09/02/23 Farida Ortega, YARROW GATHERER [address] [place] [address] Referring Physician Gastroenterology 09/02/23 documented as of this encounter
--- OUTSIDE RECORDS SUMMARY | 2024-05-19 10:18 | XMS_ITS | Encounter Summary ---
Author Organization [facility] Address [address] [place] [address] Care Team Providers Care Truck Rental Clerk Name Role Phone Yonatan Graves DO Primary Care Provider Farida Ortega GOLF CART ATTENDANT Unavailable Source Comments This information has been [...] release of HIV test results or diagnoses. [id number] Health Encounter Details Date Type Department Care Team (Late st Contact Info) Description 09/05/[address] [facility] Liver Transplant at [facility] [address] [facility] [address] [place] [address] Zeny Bhakta, MANAGER PHOTO, CUSHION SPRING ASSEMBLER Social History Tobacco Use Types Packs/Day Years [...] Description 07/28/2024 12:31 PM EST Hospital Encounter [facility] ENDOSCOPY [address] [place] [address] Mario Ramirez MD [address] [place] [address] 07/28/2024 12:31 PM EST - 07/28/2024 1:01 PM EST Surgery [facility] ENDOSCOPY [address] [place] [phone] Mario Ramirez MD [address] [place] [address] EGD Scheduled Procedures Name Priority Associated Diagnoses Date/Ti me EGD Alcoholic cirrhosis of liver with ascites ([facility]-H[facility]) 07/28/2024 12:31 PM EST documented as of this encounter Visit Diagnoses Not on filedocumented in this encounter Care Teams Truck Rental Clerk Relationship Specialty Start Date End Date Yonatan Graves DO [address] [place] [address] PCP - General 09/02/23 aFrida Ortega, GOLF CART ATTENDANT [address] [place] [address] Referring Physician Gastroenterology 09/02/23 documented as of this encounter
--- OUTSIDE RECORDS SUMMARY | 2024-05-19 10:18 | XMS_ITS | Encounter Summary ---
Author Organization [facility] Address [facility] [place] [address] Care Team Providers Care Scallop Raker Name Role Phone Yonatan Graves DO Primary Care Provider Farida Ortega NEWSPAPER PHOTO EDITOR Unavailable [phone] Source Comments This information has been disclosed [...] release of HIV test results or diagnoses. [id number] Reason for Referral * Imaging/Cardiovascular Scan (Routine) - Closed Specialty Diagnoses / Procedures Referred By Roselyn mccollum Referred To Contact Radiology Diagnoses Decompensated hepatic cirrhosis (CMS-HCC) Procedures MRI Abdomen W and WO contrast Agustin Hurt MD Referral ID Status Reason Start Date Expiration Date Visits Re quested Visits Authorized [id number] Closed 09/08/2023 03/06/2024 1 1 Reason for Visit * Reason Comments Cirrhosis * Physician/STEVEN (Routine) - Closed Specialty Diagnoses / Procedures Referred By Contac t Referred To Contact [facility] Gastroenterology Diagnoses Cirrhosis of liver with ascites, unspecified hepatic cirrhosis type (CMS-HCC) Hilda Shepherd MD [address] [place] [address] Phone: tel: fax: Referral ID Status Reason Start Date Expiration Date Visits Re quested Visits Authorized [id number] Closed 09/02/2023 02/29/2024 1 1 Encounter Details Date Type Department Care Team (Latest Contact Info) Description 09/08/2023 9:00 AM EDT Office Visit [facility] Gastroenterology at [facility] Office [address] [facility] [address] [place] [address] Agustin Hurt MD Decompensated hepatic cirrhosis (CMS-HCC) [...] Hepatology Clinic Note Name: Mindy Martins CSN: [id number] Referring Physician: Hilda Shepherd MD Chief Complaint: [...] diagnosed with liver disease. She then saw [facility] transplant center in October 2022 [...] work. Patient was evaluated by transplant social services manager at in December 2022, where it was [...] Jul 2023 and then underwent detox at [facility] The patient states that she used to only socially drink alcohol and alcohol use started maybe 5 years ago. She said over the time she started to increase her alcohol intake up to 6 wine coolers a day. From the social work at [facility] it was felt that the [...] She is due to seeour transplant social services manager at on September 24. I hope that [...] liver pathology. Agustin Hurt MD Transplant Hepatology [phone] (p) documented in this encounter Plan of Treatment Upcoming Encounters Date Type Department Care Team (Late st Contact Info) Description 07/28/2024 12:31 PM EST Hospital Encounter [facility] ENDOSCOPY [address] [place] [address] Mario Ramirez MD [address] [place] [phone] 07/28/2024 12:31 PM EST - 07/28/2024 1:01 PM EST Surgery [facility] ENDOSCOPY [address] [place] [phone] Mario Ramirez MD [address] [place] [phone] EGD Scheduled Procedures Name Priority Associated Diagnoses Date/Ti me EGD 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) 07/28/2024 12:31 PM EST documented as of this encounter Results * Ceruloplasmin (02/04/2024 4:00 PM EDT) Ceruloplasmin 25.6 18.0 - 58.0 mg/dL 02/04/2024 5:44 PM EDT [facility] Comment: Effective 03/25/2016: The units for ceruloplasmin have changed from mg/L to mg/dL. The new reference range is 18-58 mg/dL. ??Historical values can be converted from mg/L to mg/dL by dividing by a factor of 10. Serum 02/04/2024 4:00 PM EDT 02/04/2024 5:13 PM EDT us Agustin Hurt MD LAB BLOOD ORDERABLES Final Res ult [facility] [address] * Ferritin (02/04/2024 4:00 PM EDT) Ferritin 150.9 11.0 - 306.8 ng/mL 02/04/2024 5:58 PM EDT [facility] Serum 02/04/2024 4:00 PM EDT 02/04/2024 5:13 PM EDT Agustin Hurt MD LAB BLOOD ORDERABLES Final Res ult [facility] [address] * (ABNORMAL) Iron Studies (Iron + TIBC) (02/04/2024 4:00 PM EDT) Iron 214(H) 50 - 212 ug/dL 02/04/2024 5:42 PM EDT [facility] % Iron Saturation 57.5(H) 15.0 - 55.0 % 02/04/2024 5:42 PM EDT [facility] TIBC 372 265 - 497 ug/dL 02/04/2024 5:42 PM EDT [facility] Serum 02/04/2024 4:00 PM EDT 02/04/2024 5:15 PM EDT Agustin Hurt MD LAB BLOOD ORDERABLES Final Res ult [facility] [address] [place] [address]. [address] * Owfoe-5-rwqjjhheaga (02/04/2024 4:00 PM EDT) A-1 Antitrypsin 180.0 84.0 - 218.0 mg/dL 02/04/2024 5:44 PM EDT [facility] Serum 02/04/2024 4:00 PM EDT 02/04/2024 5:13 PM EDT Agustin Hurt MD LAB BLOOD ORDERABLES Final Res ult [facility] [address] [facility] * MRI Abdomen W and WO contrast [...] mL of GADOBUTROL 1 MMOL/ML INTRAVENOUS SYRINGE ([facility]) administered intravenously COMPARISON: Outside study dated 08/18/2023 [...] mL of GADOBUTROL 1 MMOL/ML INTRAVENOUS SYRINGE ([facility])administered intravenously COMPARISON: Outside study dated 08/18/2023 and [...] - 24.80 ng/mL 09/08/2023 4:27 PM EDT [facility] Serum 09/08/2023 10:3 2 AM EDT 09/08/2023 3:36 PM EDT us Agustin Hurt MD LAB BLOOD ORDERABLES Final Res ult [facility] [address] [place] [address], [facility] * Phosphatidylethanol Confirmation, B (09/08/2023 10:32 AM EDT) PETH 16:0/18.1 (POPETH) <10 Cutoff: 10 ng/mL 09/11/2023 8:12 AM EDT [facility] Comment: Phosphatidylethanol (PEth) homologues result [...] Cutoff: 10 ng/mL 09/11/2023 8:12 AM EDT [facility] Comment: PEth 16:0/18:2 (PLPEth) Reference ranges are not well established PEth Interpretation Negative. 09/10 8:12 AM EDT [facility] Comment: ADDITIONAL INFORMATION This report is intended for use in clinical monitoring and management of patients. ??It is not intended for use in employment-related testing. This test was developed and its performance characteristics determined by [facility] in a manner consistent with CLIA requirements. This test has not been cleared or approved by the U.S. Food and Drug Administration. Test Performed by: [facility] [place] [address] Paediatric Surgeon: Uriel Dalton M.D. Ph.D.; CLIA# [id number] Whole Blood 09/08/2023 10:3 2 AM EDT 09/11/2023 8:12 AM EDT us Agustin Hurt MD LAB BLOOD ORDERABLES Final Res ult [facility] [address] [place] [address], [facility] * (ABNORMAL) Renal Function Panel w/EGFR (09/08/2023 10:32 AM EDT) Sodium 133 133 - 146 mmol/L 09/08/2023 2:41 PM EDT [facility] Potassium 4.1 3.5 - 5.3 mmol/L 09/08/2023 2:41 PM EDT [facility] Chloride 97(L) 98 - 110 mmol/L 09/08/2023 2:41 PM EDT [facility] CO2 28 21 - 33 mmol/L 09/08/2023 2:41 PM EDT [facility] Anion Gap 8 3 - 16 mmol/L 09/08/2023 2:41 PM EDT [facility] BUN 9 7 - 25 mg/dL 09/08/2023 2:41 PM EDT [facility] Creatinine 0.78 0.60 - 1.30 mg/dL 09/08/2023 2:41 PM EDT [facility] Glucose 84 70 - 100 mg/dL 09/08/2023 2:41 PM EDT [facility] Calcium 9.3 8.6 - 10.3 mg/dL 09/08/2023 2:41 PM EDT [facility] Phosphorus 4.2 2.1 - 4.7 mg/dL 09/08/2023 2:41 PM EDT [facility] Albumin 3.4(L) 3.5 - 5.7 g/dL 09/08/2023 2:41 PM EDT [facility] Osmolality, Calculated 274(L) 278 - 305 mOsm/kg 09/08/2023 2:41 PM EDT [facility] EGFR >90 09/08/2023 2:41 PM EDT [facility] Comment: As of 2021, the [...] ND, Jyoti GARDUNO, Nas [place], et al. ??A Unifying Approach [...] MD LAB BLOOD ORDERABLES Final Res ult [facility] [address] [place] [address], [facility] * (ABNORMAL) Hepatic Function Panel (09/08/2023 10:32 AM EDT) Total Bilirubin 7.3(H) 0.0 - 1.5 mg/dL 09/08/2023 2:41 PM EDT [facility] Bilirubin, Direct 2.76(H) 0.00 - 0.40 mg/dL 09/08/2023 2:41 PM EDT [facility] AST 47(H) 13 - 39 U/L 09/08/2023 2:41 PM EDT [facility] ALT 42 7 - 52 U/L 09/08/2023 2:41 PM EDT [facility] Alkaline Phosphatase 139(H) 36 - 125 U/L 09/08/2023 2:41 PM EDT [facility] Total Protein 7.2 6.4 - 8.9 g/dL 09/08/2023 2:41 PM EDT [facility] Albumin 3.4(L) 3.5 - 5.7 g/dL 09/08/2023 2:41 PM EDT [facility] Bilirubin, Indirect 4.54(H) 0.00 - 1.10 mg/dL 09/08/2023 2:41 PM EDT [facility] Plasma 09/08/2023 10:3 2 AM EDT 09/08/2023 2:23 PM EDT us Agustin Hurt MD LAB BLOOD ORDERABLES Final Res ult Performing Organization Address [facility]/ZIP Co de Phone Number [facility] [address] * Hepatitis C RNA, Quant Reflex to Genotyp (09/08/2023 10:32 AM EDT) Pathologist [facility] Units Not Detected IU/mL 09/11/2023 10:30 AM EDT [facility] Comment:Test methodology for HCV RNA quantification is an FDA-approved nucleic acid amplification assay. The Lower Limit of Quantitation (LLOQ) is 15 IU/mL. The linear range of the assay is 15-100,000,000 IU/mL. The Limit of Detection (LoD) is 12.0 IU/mL for EDTA plasma. The reference range is Not Detected. IU log10 See Note log 10 IU/mL 09/11/2023 10:30 AM EDT [facility] Comment:HCV RNA not detected . Plasma 09/08/2023 10:3 2 AM EDT 09/08/2023 3:14 PM EDT Agustin Hurt MD LAB BLOOD ORDERABLES Final Res ult Performing Organization Address [facility] de Phone Number [facility] [address] [facility]. [address] * (ABNORMAL) AFP tumor marker (09/08/2023 10:32 AM EDT) [facility] AFP-Tumor Marker 9.7(H) 0.0 - 9.0 ng/mL 09/08/2023 4:08 PM EDT [facility] Serum 09/08/2023 10:3 2 AM EDT 09/08/2023 3:36 PM EDT Narrative [facility] - 09/08/2023 4:08 PM EDT The testing method for AFP is a chemiluminescent immunoassay manufactured by [employer] Concentrations of AFP obtained by different assay methods or kits may vary and cannot be used interchangeably. AFP results cannot be interpreted as absolute evidence of the presence or absence of malignant disease. Agustin Hurt MD LAB BLOOD ORDERABLES Final Res ult Performing Organization Address [facility] Co de Phone Number [facility] [address] * (ABNORMAL) Protime-INR (09/08/2023 10:32 AM EDT) Protime 17.9(H) 12.1 - 15.1 seconds 09/08/2023 2:36 PM EDT [facility] INR 1.4(H) 0.9 - 1.1 09/08/2023 2:36 PM EDT [facility] Comment: RECOMMENDED THERAPEUTIC RANGES USING INR : ?Stable oral anticoagulant therapy: ? 2.0 - 3.0 ?Mechanical prosthetic heart valve: ? 2.5 - 3.5 ?Recurrent acute myocardial infarction: ? 2.5 - 3.5 Plasma 09/08/2023 10:3 2 AM EDT 09/08/2023 2:20 PM EDT us Agustin Hurt MD LAB BLOOD ORDERABLES Final Res ult Performing Organization Address [facility] Co de Phone Number [facility] [address] * (ABNORMAL) CBC (09/08/2023 10:32 AM EDT) WBC 7.6 3.8 - 10.8 10E3/uL 09/08/2023 2:40 PM EDT [facility] RBC 3.36(L) 3.80 - 5.10 10E6/uL 09/08/2023 2:40 PM EDT [facility] Hemoglobin 13.0 11.7 - 15.5 g/dL 09/08/2023 2:40 PM EDT [facility] Hematocrit 36.6 35.0 - 45.0 % 09/08/2023 2:40 PM EDT [facility] MCV 109.1(H) 80.0 - 100.0 fL 09/08/2023 2:40 PM EDT [facility] MCH 38.7(H) 27.0 - 33.0 pg 09/08/2023 2:40 PM EDT [facility] MCHC 35.5 32.0 - 36.0 g/dL 09/08/2023 2:40 PM EDT [facility] RDW 16.3(H) 11.0 - 15.0 % 09/08/2023 2:40 PM EDT [facility] Platelets 117(L) 140 - 400 10E3/uL 09/08/2023 2:40 PM EDT [facility] MPV 10.2 7.5 - 11.5 fL 09/08/2023 2:40 PM EDT [facility] Whole Blood 09/08/2023 10:3 2 AM EDT 09/08/2023 2:22 PM EDT us Agustin Hurt MD LAB BLOOD ORDERABLES Final Res ult [facility] [address] documented in this encounter Visit Diagnoses Diagnosis Decompensated hepatic cirrhosis (CMS-HCC)- Primary 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) Decompensated hepatic cirrhosis (CMS-HCC) Decompensated hepatic cirrhosis (CMS-HCC) 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) documented in this encounter Care Teams Scallop Raker Relationship Specialty Start Date End Date Yonatan Graves DO [address] [place] [address] PCP - General 09/02/23 Farida Ortega, NEWSPAPER PHOTO EDITOR [address] [place] [phone] Referring Physician Gastroenterology 09/02/23 documented as of this encounter
--- OUTSIDE RECORDS SUMMARY | 2024-05-19 10:18 | XMS_ITS | Encounter Summary ---
Author Organization [facility] Address [facility] [place] [address] Care Team Providers Care Logging Tractor Operator Name Role Phone Yonatan Graves DO Primary Care Provider Farida Ortega KICK BOXER Unavailable [phone] Source Comments This information has been disclosed [...] release of HIV test results or diagnoses. [id number] Encounter Details Date Type Department Care [...] Description 07/28/2024 12:31 PM EST Hospital Encounter [facility] ENDOSCOPY [address] [place] [address] Mario Ramirez MD [address] [place] [phone] 07/28/2024 12:31 PM EST - 07/28/2024 1:01 PM EST Surgery [facility] ENDOSCOPY [address] [place] [phone] Mario Ramirez MD [address] [place] [address] EGD Scheduled Procedures Name Priority Associated Diagnoses Date/Ti me EGD 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) 07/28/2024 12:31 PM EST documented as of this encounter Visit Diagnoses Not on filedocumented in this encounter Additional Health Concerns Assessment Noted Time PHQ-9 Depression Total Score: 13 024 11:52 AM EDT documented as of this encounter Care Teams Logging Tractor Operator Relationship Specialty Start Date End Date Yonatan Graves DO [address] [place] [address] PCP - General 09/02/23 Farida Ortega, KICK BOXER [address] [place] [address] Referring Physician Gastroenterology 09/02/23 documented as of this encounter
--- OUTSIDE RECORDS SUMMARY | 2024-05-19 10:18 | XMS_ITS | Encounter Summary ---
Author Organization [facility] Address [address] [place] [address] Care Team Providers Care Wire Harness Assembler Name Role Phone Yonatan Graves DO Primary Care Provider Farida Ortega LIBRARY HELPER Unavailable [phone] Source Comments This information has been disclosed [...] release of HIV test results or diagnoses. [id number] Health Encounter Details Date Type Department Care Team (Late st Contact Info) Description 09/11/2023 Chart Note [facility] at [address] [address] Abdullahi Cano RN Multi-disciplinary Hepatobiliary Case Conference [...] 3. Plan is to repeat MRI at [facility] in October. *This document represents [...] [facility] [address] [place] [phone] Mario Ramirez MD [address] [place] [address] 07/28/2024 12:31 PM EST - 07/28/2024 1:01 PM EST Surgery [facility] ENDOSCOPY [address] [place] [phone] Mario Ramirez MD [address] [place] [phone] EGD Scheduled Procedures Name Priority Associated Diagnoses Date/Ti me EGD 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) 07/28/2024 12:31 PM EST documented as of this encounter Visit Diagnoses Not on filedocumented in this encounter Care Teams Wire Harness Assembler Relationship Specialty Start Date End Date Yonatan Graves DO [address] [place] [address] PCP - General 09/02/23 Farida Ortega, LIBRARY HELPER [address] [place] [address] Referring Physician Gastroenterology 09/02/23 documented as of this encounter
--- OUTSIDE RECORDS SUMMARY | 2024-05-19 10:18 | XMS_ITS | Encounter Summary ---
Author Organization [facility] Address [facility] [place] [address] Care Team Providers Care Back Hoe Machine Operator Name Role Phone Yonatan Graves DO Primary Care Provider Farida Ortega CASHIER WRAPPER Unavailable [phone] Source Comments This information has been disclosed [...] release of HIV test results or diagnoses. [id number] Health Encounter Details Date Type Department Care [...] Description 07/28/2024 12:31 PM EST Hospital Encounter [facility] ENDOSCOPY [address] [place] [address] Mario Ramirez MD [address] [place] [phone] 07/28/2024 12:31 PM EST - 07/28/2024 1:01 PM EST Surgery [facility] ENDOSCOPY [address] [place] [address] Mario Ramirez MD [address] [place] [address] EGD Scheduled Procedures Name Priority Associated Diagnoses Date/Ti me EGD Alcoholic cirrhosis of liver with ascites ([facility]-HCC) 07/28/2024 12:31 PM EST documented as of this encounter Visit Diagnoses Not on filedocumented in this encounter Care Teams Back Hoe Machine Operator Relationship Specialty Start Date End Date Yonatan Graves DO [address] [place] [address] PCP - General 09/02/23 Farida Ortega, CASHIER WRAPPER [address] [place] [address] Referring Physician Gastroenterology 09/02/23 documented as of this encounter
--- OUTSIDE RECORDS SUMMARY | 2024-05-19 10:18 | XMS_ITS | Encounter Summary ---
Author Organization Address [address] [place] [address] Care Team Providers Care Clinical Writer Name Role Phone Unknown, Attending Provider Primary Care Provide r Unavailable Yonatan Graves DO Primary Care Provider Farida Ortega ACTUARIAL CLERK Unavailable [phone] Source Comments This information has been disclosed [...] release of HIV test results or diagnoses. [id number] Reason for Referral * Physician/STEVEN (Routine) - Closed Specialty Diagnoses / Procedures Referred By Contac t Referred To Contact [facility] Gastroenterology Diagnoses Cirrhosis of liver with ascites, unspecified hepatic cirrhosis type ([facility]) Hilda Shepherd MD [address] [place] [address] Phone: tel: fax: Referral ID Status Reason Start Date Expiration Date Visits Re quested Visits Authorized [id number] Closed 09/02/2023 02/29/2024 1 1 Scheduling Instructions For appointments, please call [phone]. Reason for Visit * Reason Comments Leg Swelling Bilateral Bloating Chest Pain Shortness of Breath Encounter Details Date Type Department Care Team ([facility] Contact Info) Description 09/01/2023 10:00 PM EDT - 09/02/2023 2:40 PM EDT Emergency [facility] Emergency Department [address] [place] [id number] Sammi Carney MD [address] [place] [phone] Cirrhosis of liver with ascites, unspecified hepatic [...] be sent through Care Everywhere. * Ascites (Greek) * Paracentesis Care After (Greek) documented in this encounter Medications at Time [...] reaches out and expresses interest in assistance. JEREMY LouiseW Community Health Worker [place] [address] P: E: [email or web address] * Hilda Shepherd MD - 09/01/2023 7:36 PM EDT ED Reassessment Note Mindy Wade is a [...] Rizo MD - 09/01/2023 7:36 PM EDT ED Note Date of Service: 09/01/2023 Reason [...] Rhythm: Normal sinus rhythm Rate: 67 bpm [place]: Normal axis Intervals: Normal Conduction: Normal Q [...] updates: ED Course as of 09/02/23 0826 e Sep 02, 2023 0256 MELD 20, up from [...] - 09/01/2023 7:36 PM EDTAssociated Order(s): Paracentesis ED Procedure Note Emergency Department Procedures Paracentesis Date/Time: 09/02/2023 4:32 PM Performed by: Hilda Shepherd MD Authorized by: Sammi Carney MD Consent: Consent obtained: Verbal and written Consent given by: Patient Risks, benefits, and alternatives were discussed: yes Risks discussed: Bleeding, bowel perforation, infection and pain Alternatives discussed: No treatment and observation [place] protocol: Procedure explained and questions answered to [...] seen at but wants to come to [facility] now. Presents with increased BLE swelling and [...] RN - 09/02/2023 1:03 AM EDT Bed: [facility] Expected date: 09/02/23 Expected time: 12:44 AM [...] tools, resources, and contact information. Raphael Dejesus Window Repairer-JET Team [facility] Department of Emergency Medicine C: [phone] * ED Medical Screening Exam - Shiraz Rivera MD - 09/01/2023 7:36 PM EDT [facility] MEDICAL SCREENING EXAM Date of Service: 09/01/2023 Reason for Visit: Leg Swelling (Bilateral), Bloating, Chest Pain, and Shortness of Breath MSE Plan [facility]. In short, this is a patient presenting with concerns for liver failure. To further evaluate their complaints, the following orders have been placed: Labs Reviewed HEPATIC FUNCTION PANEL ED HCV AB REFLEX TO HCV QUANT LIPASE MAGNESIUM PHOSPHORUS BASIC METABOLIC PANEL CBC DIFFERENTIAL PROTIME-INR Medications - No data to display Stable for [facility] while awaiting ED bed. See primary provider's [...] 07/28/2024 12:31 PM EST Hospital Encounter [facility] ENDOSCOPY [address] [place] [address] Mario Ramirez MD [address] [place] [address] 07/28/2024 12:31 PM EST - 07/28/2024 1:01 PM EST Surgery [facility] ENDOSCOPY [address] [place] [address] Mario Ramirez MD [address] [place] [address] EGD Scheduled Procedures Name Priority Associated Diagnoses Date/Ti me EGD 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) 07/28/2024 12:31 PM EST Scheduled Referrals Name Type Priority Associated Diagnoses [...] pain ??Alternatives discussed: ??No treatment and observation [place] protocol: ??Procedure explained and questions answered to [...] ??Procedure completion: ??Tolerated well, no immediate complications us Sammi Carney MD PROCEDURE/MINOR SURGICAL OR DERABLES Final Result * Glucose, body fluid (09/02/2023 10:02 AM EDT) Glucose, Fluid 92 mg/dL 09/02/2023 10:46 AM EDT [facility] Comment:Reference range not established for this test. Ascitic Fluid ABDOMEN / Unknown 10:02 AM EDT 09/02/2023 10:17 AM EDT [facility] - 09/02/2023 10:46 AM EDT This assay has been modified from the materials recycler's specifications and has been validated with performance characteristics determined by Laboratory in accordance with federal regulations under the Clinical Laboratory Act Amendment of 1987. The modification has not been approved by the FDA which has determined that such approval is not necessary. The test is for clinical purposes and should not be regarded as investigational or for research use. Hilda Shepherd MD BODY FLUIDS AND STOOLS ORDERABLES Final Result Performing Organization Address [facility] Co de Phone Number [facility] [address] [place] [address] * Body Fluid Culture plus Stain (09/02/2023 10:02 AM EDT) Gram Stain Result Cytospin Results: [facility] Gram Stain Result Mononuclear Cells Seen; [facility] Gram Stain Result Polymorphonuclear Leukocytes Seen; [facility] Gram Stain Result No Organisms Seen; [facility] Culture Result No Growth After 5 Days [facility] Paracentesis Fluid ABDOMEN / Unknown 08/21 10:02 AM EDT 09/02/2023 11:33 AM EDT Hilda Shepherd MD MICROBIOLOGY - GENERAL ORDERABLES Final Result Performing Organization Address [facility] de Phone Number [facility] [address] [place] [address]. [address] * Amylase, Body fluid (09/02/2023 10:02 AM EDT) Amylase, Fluid 10 U/L 09/02/2023 10:46 AM EDT [facility] Comment:Reference range not established for this test. Abdominal Fluid ABDOMEN / Unknown 024 10:02 AM EDT 09/02/2023 10:17 AM EDT Narrative [facility] - 09/02/2023 10:46 AM EDT This assay has been modified from the materials recycler's specifications and has been validated with performance characteristics determined by Laboratory in accordance with federal regulations under the Clinical Laboratory Act Amendment of 1987. The modification has not been approved by the FDA which has determined that such approval is not necessary. The test is for clinical purposes and should not be regarded as investigational or for research use. Hilda Shepherd MD BODY FLUIDS AND STOOLS ORDERABLES Final Result Performing Organization Address [facility] Co de Phone Number [facility] [address] * Albumin, fluid (09/02/2023 10:02 AM EDT) Albumin, Fluid <1.5 g/dL 09/02/2023 10:46 AM EDT [facility] Comment:Reference range not established for this test. Abdominal Fluid ABDOMEN / Unknown 024 10:02 AM EDT 09/02/2023 10:17 AM EDT Narrative [facility] - 09/02/2023 10:46 AM EDT This assay has been modified from the materials recycler's specifications and has been validated with performance characteristics determined by [employer] in accordance with federal regulations under the Clinical Laboratory Act Amendment of 1988. The modification has not been approved by the FDA which has determined that such approval is not necessary. The test is for clinical purposes and should not be regarded as investigational or for research use. Hilda Shepherd MD BODY FLUIDS AND STOOLS ORDERABLES Final Result Performing Organization Address [facility] de Phone Number [facility] [address] [facility]. [address] * Protein, Body fluid (09/02/2023 10:02 AM EDT) Protein, Fluid <3.0 g/dL 09/02/2023 10:46 AM EDT [facility] Comment:Reference range not established for this test. Ascitic Fluid ABDOMEN / Unknown 10:02 AM EDT 09/02/2023 10:17 AM EDT [facility] - 09/02/2023 10:46 AM EDT This assay has been modified from the materials recycler's specifications and has been validated with performance characteristics determined by Laboratory in accordance with federal regulations under the Clinical Laboratory Act Amendment of 1988. The modification has not been approved by the FDA which has determined that such approval is not necessary. The test is for clinical purposes and should not be regarded as investigational or for research use. Hilda Shepherd MD BODY FLUIDS AND STOOLS ORDERABLES Final Result Performing Organization Address [facility] Co de Phone Number [facility] [address] * (ABNORMAL) Body fluid cell count (09/02/2023 10:02 AM EDT) Color, Fluid Yellow(A) Colorless, Pale Yellow 09/02/2023 1:45 PM EDT [facility] Clarity, Fluid Hazy 09/02/2023 1:45 PM EDT [facility] Neutrophil %, Fluid 4 % 09/02/2023 1:45 PM EDT [facility] Lymphocytes %, Fluid 40 % 09/02/2023 1:45 PM EDT [facility] Mesothelial %, Fluid 4 % 09/02/2023 1:45 PM EDT [facility] Macrophage %, Fluid 52 % 09/02/2023 1:45 PM EDT [facility] RBC, Fluid 1,977 /uL 09/02/2023 1:45 PM EDT [facility] Total Nucleated Cells, Fluid 129 /uL 09/02/2023 1:45 PM EDT [facility] Comment:Total Nucleated Cell s represent WBCs and other nucleated cells in the fluid such as lining cells. Ascitic Fluid ABDOMEN / Unknown 10:02 AM EDT 09/02/2023 11:32 AM EDT Hilda Shepherd MD BODY FLUIDS AND STOOLS ORDERABLES Final Result Performing Organization Address [facility] Co de Phone Number [facility] [address] [facility]. [address] * Bedside focused FAST ultrasound (09/02/2023 8:44 AM EDT) 09/02/2023 8:44 AM EDT Narrative [facility] - 09/07/2023 8:32 AM EDT Focused FAST Ultrasound Examination ?Exam category: ??Clinically indicated ?Indication(s) for Exam: ?Select one or more indications: ??other indication(s) ?planning for paracentesis ?Views Obtained: ?Select all areas imaged (customer account representative images/clips obtained): ??abdomen ?Findings: ?Hepatorenal: ??no fluid seen ?Interpretation: ?Positive FAST ?FAST interpretation details: ??intra-abdominal fluid seen ?Attending Attestation: ?I (the Attending) was present when the images were obtained by the electrogalvanizing machine operator AND/OR I reviewed the images after they were obtained. ??I have reviewed the interpretation by the electrogalvanizing machine operator, made any necessary edits and agree [...] distension ?Views Obtained: ?Select all areas imaged (customer account representative images/clips obtained): ??abdomen ?Findings: ?Other Findings: ??Moderate RUQ/RLQ pocket amenable to paracentesis. ?Interpretation: ?Technically inadequate ?Comments: ??focused RUQ/RLQ to evaluate for paracentesis pocket. ?Attending Attestation: ?I (the Attending) was present when the images were obtained by the electrogalvanizing machine operator AND/OR I reviewed the images after they were obtained. ??I have reviewed the interpretation by the electrogalvanizing machine operator, made any necessary edits and agree with the interpretation as currently documented. Electronically signed by Sammi Carney on August at 3:46 AM us Maeve Rizo MD BEDSIDE US ORDERABLES Final Resu lt Performing Organization Address [facility]/ZIP Co de Phone Number [facility] * Cytology, Peritoneal Fluid (09/02/2023 12:00 AM EDT) Peritoneal Fluid 09/02/2023 09/02/19 24 Narrative [facility] - 09/02/2023 12:00 AM EDT CASE: [id number] PATIENT: MINDY WADE Clinical History: Clinical Diagnosis: Ascites Specimen Source: ?A. Peritoneal Fluid Gross Description: ??Received 3ml Yellow Fluid CPT Code(s): ?? 46657 X 1; 32287 X 1 Additional Information: DIAGNOSIS: Peritoneal Fluid (ThinPrep and Cell Block): NO MALIGNANT CELLS IDENTIFIED Scant mesothelial cells Paucicellular and hemodiluted specimen Initial Evaluation performed by Lili BUTLER(ASCP) Visor Installer Electronically signed 09/03/2023 08:08:24 AM ?? The Diagnostician signing this report is located at FACILITY NAME NOT ATTACHED, CLIA ID: Not Given Final Diagnosis performed by Janae Boyce M.D. Pathologist Electronically signed 09/03/2023 05:08:05 PM ?? The Pathologist signing this report is located at [facility], [address] [place] [address], [facility] [phone], CLIA ID: [id number] us Hilda Shepherd MD PATHOLOGY/CYTOLOGY OPHELIA GARG Final Result Performing Organization Address [facility]/ZIP Co de Phone Number [facility] * Hepatitis C, RNA, Quant (09/01/2023 10:37 PM EDT) International Units Not Detected IU/mL 09/04/2023 1:15 PM EDT [facility] Comment:Test methodology for HCV RNA quantification is an FDA-approved nucleic acid amplification assay. The Lower Limit of Quantitation (LLOQ) is 15 IU/mL. The linear range of the assay is 15-100,000,000 IU/mL. The Limit of Detection (LoD) is 13.7 IU/mL for serum. The reference range is Not Detected. IU log10 See Note log 10 IU/mL 09/04/2023 1:15 PM EDT [facility] Comment:HCV RNA not detected . Serum 09/01/2023 10:3 7 PM EDT 09/01/2023 11:53 PM EDT us Shiraz Rivera MD LAB BLOOD ORDERABLES Final Res ult Performing Organization Address [facility] Co de Phone Number [facility] [address] * (ABNORMAL) Protime-INR (09/01/2023 10:37 PM EDT) Protime 20.4(H) 12.1 - 15.1 seconds 09/01/2023 11:15 PM EDT [facility] INR 1.7(H) 0.9 - 1.1 09/01/2023 11:15 PM EDT [facility] Comment: RECOMMENDED THERAPEUTIC RANGES USING INR : ?Stable oral anticoagulant therapy: ? 2.0 - 3.0 ?Mechanical prosthetic heart valve: ? 2.5 - 3.5 ?Recurrent acute myocardial infarction: ? 2.5 - 3.5 Plasma 09/01/2023 10:3 7 PM EDT 09/01/2023 10:54 PM EDT us Shiraz Rivera MD LAB BLOOD ORDERABLES Final Res ult Performing Organization Address [facility]/State/ZIP Co de Phone Number [facility] [address] * (ABNORMAL) Differential (09/01/2023 10:37 PM EDT) Neutrophils Relative 48.0 40.0 - 80.0 % 09/01/2023 11:03 PM EDT [facility] Lymphocytes Relative 29.0 15.0 - 45.0 % 09/01/2023 11:03 PM EDT [facility] Monocytes Relative 17.3(H) 0.0 - 12.0 % 09/01/2023 11:03 PM EDT [facility] Eosinophils Relative 5.0 0.0 - 8.0 % 09/01/2023 11:03 PM EDT [facility] Basophils Relative 0.7 0.0 - 1.0 % 09/01/2023 11:03 PM EDT [facility] nRBC 0 0 - 0 /100 WBC 09/01/2023 11:03 PM EDT [facility] Neutrophils Absolute 4,800 1,500 - 7,800 /uL 09/01/2023 11:03 PM EDT [facility] Lymphocytes Absolute 2,900 850 - 3,900 /uL 09/01/2023 11:03 PM EDT [facility] Monocytes Absolute 1,730(H) 200 - 950 /uL 09/01/2023 11:03 PM EDT [facility] Eosinophils Absolute 500 15 - 500 /uL 09/01/2023 11:03 PM EDT [facility] Basophils Absolute 70 0 - 200 /uL 09/01/2023 11:03 PM EDT [facility] Whole Blood 09/01/2023 10:3 7 PM EDT 09/01/2023 10:54 PM EDT us Shiraz Rivera MD LAB BLOOD ORDERABLES Final Res ult [facility] [address] * (ABNORMAL) CBC (09/01/2023 10:37 PM EDT) WBC 10.0 3.8 - 10.8 10E3/uL 09/01/2023 11:03 PM EDT [facility] RBC 3.17(L) 3.80 - 5.10 10E6/uL 09/01/2023 11:03 PM EDT [facility] Hemoglobin 12.1 11.7 - 15.5 g/dL 09/01/2023 11:03 PM EDT [facility] Hematocrit 34.5(L) 35.0 - 45.0 % 09/01/2023 11:03 PM EDT [facility] MCV 108.8(H) 80.0 - 100.0 fL 09/01/2023 11:03 PM EDT [facility] MCH 38.1(H) 27.0 - 33.0 pg 09/01/2023 11:03 PM EDT [facility] MCHC 35.0 32.0 - 36.0 g/dL 09/01/2023 11:03 PM EDT [facility] RDW 15.7(H) 11.0 - 15.0 % 09/01/2023 11:03 PM EDT [facility] Platelets 139(L) 140 - 400 10E3/uL 09/01/2023 11:03 PM EDT [facility] MPV 9.6 7.5 - 11.5 fL 09/01/2023 11:03 PM EDT [facility] Whole Blood 09/01/2023 10:3 7 PM EDT 09/01/2023 10:54 PM EDT us Shiraz Rivera MD LAB BLOOD ORDERABLES Final Res ult Performing Organization Address City/State/[facility] Co de Phone Number [facility] [address] [place] [address] * Basic metabolic panel (09/01/2023 10:37 PM EDT) Sodium 135 133 - 146 mmol/L 09/01/2023 11:00 PM EDT [facility] Potassium 3.9 3.5 - 5.3 mmol/L 09/01/2023 11:00 PM EDT [facility] Chloride 101 98 - 110 mmol/L 09/01/2023 11:00 PM EDT [facility] CO2 29 21 - 33 mmol/L 09/01/2023 11:00 PM EDT [facility] Anion Gap 5 3 - 16 mmol/L 09/01/2023 11:00 PM EDT [facility] BUN 13 7 - 25 mg/dL 09/01/2023 11:00 PM EDT [facility] Creatinine 0.84 0.60 - 1.30 mg/dL 09/01/2023 11:00 PM EDT [facility] Glucose 91 70 - 100 mg/dL 09/01/2023 11:00 PM EDT [facility] Calcium 8.8 8.6 - 10.3 mg/dL 09/01/2023 11:00 PM EDT [facility] Osmolality, Calculated 280 278 - 305 mOsm/kg 09/01/2023 11:00 PM EDT [facility] EGFR >90 09/01/2023 11:00 PM EDT [facility] Comment: As of 2021, [...] MD LAB BLOOD ORDERABLES Final Res ult [facility] [address] * Phosphorus (09/01/2023 10:37 PM EDT) Phosphorus 3.4 2.1 - 4.7 mg/dL 09/01/2023 11:00 PM EDT [facility] Plasma 09/01/2023 10:3 7 PM EDT 09/01/2023 10:41 PM EDT us Shiraz Rivera MD LAB BLOOD ORDERABLES Final Res ult [facility] [address] * Magnesium (09/01/2023 10:37 PM EDT) Magnesium 1.7 1.5 - 2.5 mg/dL 09/01/2023 11:00 PM EDT [facility] Plasma 09/01/2023 10:3 7 PM EDT 09/01/2023 10:41 PM EDT us Shiraz Rivera MD LAB BLOOD ORDERABLES Final Res ult Performing Organization Address [facility]/ZIP Co de Phone Number [facility] [address] * (ABNORMAL) Lipase (09/01/2023 10:37 PM EDT) Lipase 83(H) 4 - 82 U/L 09/01/2023 11:00 PM EDT [facility] Plasma 09/01/2023 10:3 7 PM EDT 09/01/2023 10:41 PM EDT us Shiraz Rivera MD LAB BLOOD ORDERABLES Final Res ult [facility] [address] * (ABNORMAL) ED HCV Ab Reflex To HCV Quant (09/01/2023 10:37 PM EDT) HCV Ab Reactive( A) Nonreactive 09/02/2023 5:03 AM EDT [facility] Comment:Health Department no tified in accordance with reportable infectious disease guidelines. HCVAB Number 4.50(H) 0.00 - 0.79 S/CO 09/02/2023 5:03 AM EDT [facility] Serum 09/01/2023 10:3 7 PM EDT 09/01/2023 10:54 PM EDT us Shiraz Rivera MD LAB BLOOD ORDERABLES Final Res ult [facility] [address] [place] [address], [facility] * (ABNORMAL) Hepatic Function Panel (09/01/2023 10:37 PM EDT) Total Bilirubin 5.1(H) 0.0 - 1.5 mg/dL 09/01/2023 11:00 PM EDT [facility] Bilirubin, Direct 2.1(H) 0.0 - 0.4 mg/dL 09/01/2023 11:00 PM EDT [facility] AST 72(H) 13 - 39 U/L 09/01/2023 11:00 PM EDT [facility] ALT 47 7 - 52 U/L 09/01/2023 11:00 PM EDT [facility] Alkaline Phosphatase 111 36 - 125 U/L 09/01/2023 11:00 PM EDT [facility] Total Protein 6.3(L) 6.4 - 8.9 g/dL 09/01/2023 11:00 PM EDT [facility] Albumin 2.9(L) 3.5 - 5.7 g/dL 09/01/2023 11:00 PM EDT [facility] Bilirubin, Indirect 3.1(H) 0.0 - 1.1 mg/dL 09/01/2023 11:00 PM EDT [facility] Plasma 09/01/2023 10:3 7 PM EDT 09/01/2023 10:41 PM EDT us Shiraz Rivera MD LAB BLOOD ORDERABLES Final Res ult Performing Organization Address City/[facility]/ZIP Co de Phone Number [facility] [address] [place] [address], [facility] * ED ECG 12-Lead (MUSE) (09/01/2023 7:48 PM EDT) 09/01/2023 7:48 PM EDT Narrative MUSE - 09/02/2023 7:37 AM EDT Ventricular Rate: ??67 ??BPM Atrial Rate: ??67 ??BPM P-R Interval: ??132 ??ms QRS Duration: ??76 ??ms QT: ??422 ??ms QTc: ??445 ??ms P [place]: ??20 ??degrees R [place]: ??75 ??degrees T [place]: ??55 ??degrees Diagnosis Line: ??INTERPRETATION NOT AVAILABLE--ECG READ IN ER ^ Confirmed by PHYSICIAN, ER ([id number]), state editor [employer] ([id number]) on 09/02/2023 7:37:30 AM us Sammi Carney MD ECG ORDERABLES Final Resul t Performing Organization Address City/[facility]/ZIP Co de Phone Number MUSE documented in this encounter Visit Diagnoses Diagnosis Cirrhosis of liver with ascites, unspecified hepatic cirrhosis type (CMS-HCC)- Primary 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) documented in this encounter Administered Medications Inactive [...] Guanako Cruz RN - Comment: handoff to MD) documented in this encounter Care Teams Clinical Writer Relationship Specialty Start Date End Date Unknown, Attending Provider PCP - General 09/01/2308/31 Yonatan Graves DO [address] [place] [address] PCP - General 09/02/23 Farida Ortega NP [address] [place] [id number] Referring Physician Gastroenterology 09/02/23 documented as of this encounter
--- OUTSIDE RECORDS SUMMARY | 2024-05-19 10:18 | XMS_ITS | Encounter Summary ---
Author Organization [facility] Address [facility] [place] [address] Care Team Providers Care Options Advisor Name Role Phone Yonatan Graves DO Primary Care Provider Farida Ortega RESIDENTIAL APPRAISER Unavailable [phone] Source Comments This information has been disclosed [...] release of HIV test results or diagnoses. [id number] Health Reason for Visit * Reason Comments Medication Refill Encounter Details Date Type Department Care Team (Late st Contact Info) Description 11/04/2023 Refill [facility] [address] [address] Grazyna Velasco MD 222 [place] [address] Social History Tobacco Use Types [...] Description 07/28/2024 12:31 PM EST Hospital Encounter [facility] ENDOSCOPY [address] [place] [address] Mario Ramirez MD [address] [place] [phone] 07/28/2024 12:31 PM EST - 07/28/2024 1:01 PM EST Surgery [facility] ENDOSCOPY [address] [place] [address] Mario Ramirez MD [address] [place] [address] EGD Scheduled Procedures Name Priority Associated Diagnoses Date/Ti me EGD Alcoholic cirrhosis of liver with ascites ([facility]-H[facility]) 07/28/2024 12:31 PM EST documented as of this encounter Visit Diagnoses Not on filedocumented in this encounter Additional Health Concerns Assessment Noted Time PHQ-9 Depression Total Score: 13 024 11:52 AM EDT documented as of this encounter Care Teams Options Advisor Relationship Specialty Start Date End Date Yonatan Graves DO [address] [place] [address] PCP - General 09/02/23 Farida Ortega, RESIDENTIAL APPRAISER [address] [place] [address] Referring Physician Gastroenterology 09/02/23 documented as of this encounter
--- OUTSIDE RECORDS SUMMARY | 2024-05-19 10:18 | XMS_ITS | Encounter Summary ---
Author Organization [facility] Address [address] [place] [address] Care Team Providers Care Preassembler And Inspector Name Role Phone Yonatan Graves DO Primary Care Provider Farida Ortega REAR LOAD TRUCK DRIVER Unavailable [phone] Source Comments This information has been disclosed [...] release of HIV test results or diagnoses. [id number] Encounter Details Date Type Department Care Team (Late st Contact Info) Description 09/25/2023 Social Work [facility] Liver Transplant at [address] [address] Zeny Bhakta MSW, AJ Social History Tobacco [...] PSYCHOSOCIAL ASSESSMENT Support Persons: Darien Wade (): [phone] Kee Llanes (father) Art Hernández (mother) Client's [...] and . She does not have any hindu, ethnic, or personal objections to accepting blood [...] Score 13 GAD7 Scores: 09/25/2023 11:52 AM [id number] Score CHATO-7 Total Score 8 Reviewed results of questionnaires with patient. (PHQ-9 score: 13, CHATO-7 score: 8). Patient's PHQ-9score is indicative of moderate symptoms of depression at this time. Her CHATO-7 score is indicative of mild symptoms of anxiety at this time. Patient notes that she is working with the [facility] on dual-diagnosis treatment. 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 In 2016- 2019, she engaged in MAT (Subxone) with Dr. Preston ([facility]). She reports that she has been prescribed [...] or exacerbated by substance. Treatment: 2023: Outpatient; [facility] (Dr. Guajardo) Brynn Pittman (counselor)- Since June [...] completed some college. 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 She worked in [employer]. She was never in the . Her hobbies include to cooking, family gatherings, and cook outs. Family History: Patient and her have been 2 years and together for 9 years. Patient has two children from her previous relationship (Ky, 13' Alana, 11) and one son from her current marriage (Shelely, 7). Her parents are alive and in [...] discussed the patient's psychosocial evaluation with the move coordinator (Josie Cano). The patient participated in [...] phone number for additional needs. ASIM Selby, WINDLASSER [phone] TRANSPLANT PSYCH NOTEWRITER: Txp Clinic Entry Point: Pre-pre Clinic Social Work Assessment: New Patient SW Evaluation Location: Pre-pre Clinic Patient Barriers & Recommendations: Barriers Polysubstance Use < 12 months: Individual (12 weeks) Non-Adherence/AMA: Monitor Adherence documented in this encounter Plan of Treatment Upcoming Encounters Date Type Department Care Team (Late st Contact Info) Description 07/28/2024 12:31 PM EST Hospital Encounter [facility] ENDOSCOPY [address] [place] [phone] Mario Ramirez MD [address] [place] [address] 07/28/2024 12:31 PM EST - 07/28/2024 1:01 PM EST Surgery [facility] ENDOSCOPY [address] [place] [address] Mario Ramirez MD [address] [place] [address] EGD Scheduled Procedures Name Priority Associated Diagnoses Date/Ti ar EGD 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) 07/28/2024 12:31 PM EST documented as of this encounter Visit Diagnoses Not on filedocumented in this encounter Additional Health Concerns Assessment Noted Time PHQ-9 Depression Total Score: 13 024 11:52 AM EDT documented as of this encounter Care Teams Preassembler And Inspector Relationship Specialty Start Date End Date Yonatan Graves DO [address] [place] [address] PCP - General 09/02/23 Farida Ortega, REAR LOAD TRUCK DRIVER [address] [place] [address] Referring Physician Gastroenterology 09/02/23 documented as of this encounter
--- OUTSIDE RECORDS SUMMARY | 2024-05-19 10:18 | XMS_ITS | Encounter Summary ---
Author Organization [facility] Address [facility] [place] [address] Care Team Providers Care Barista Name Role Phone Yonatan Graves DO Primary Care Provider Farida Ortega WET END OPERATOR Unavailable [phone] Source Comments This information has been disclosed [...] release of HIV test results or diagnoses. [id number] Health Reason for Visit * Reason Comments Labs Only Encounter Details Date Type Department Care Team (Late st Contact Info) Description 09/08/2023 10:20 AM EDT Specimen [facility] Outreach Lab 222 [facility] [address] [place] [address] Agustin Hurt MD Decompensated hepatic cirrhosis ([facility]-H[facility]) Social History Tobacco Use Types Packs/Day Years [...] Description 07/28/2024 12:31 PM EST Hospital Encounter [facility] ENDOSCOPY [address] [place] [address] Mario Ramirez MD [address] [place] [address] 07/28/2024 12:31 PM EST - 07/28/2024 1:01 PM EST Surgery [facility] ENDOSCOPY [address] [place] [address] Mario Ramirez MD [address] [place] [address] EGD Scheduled Procedures Name Priority Associated Diagnoses [...] - 24.80 ng/mL 09/08/2023 4:27 PM EDT [facility] Serum 09/08/2023 10:3 2 AM EDT 09/08/2023 3:36 PM EDT us Agustin Hurt MD LAB BLOOD ORDERABLES Final Res ult [facility] [address] * Phosphatidylethanol Confirmation, B (09/08/2023 10:32 AM [...] developed and its performance characteristics determined by [facility] in a manner consistent with CLIA requirements. This test has not been cleared or approved by the U.S. Food and Drug Administration. Test Performed by: [facility] [address] [place] [address] Laser Technician: Uriel Dalton M.D. Ph.D.; CLIA# [id number] Whole Blood 09/08/2023 10:3 2 AM EDT 09/11/2023 8:12 AM EDT us Agustin Hurt MD LAB BLOOD ORDERABLES Final Res ult [facility] [address] * (ABNORMAL) Renal Function Panel w/EGFR (09/08/2023 10:32 AM EDT) Sodium 133 133 - 146 mmol/L 09/08/2023 2:41 PM EDT [facility] Potassium 4.1 3.5 - 5.3 mmol/L 09/08/2023 2:41 PM EDT [facility] Chloride 97(L) 98 - 110 mmol/L 09/08/2023 2:41 PM EDT [facility] CO2 28 21 - 33 mmol/L 09/08/2023 2:41 PM EDT [facility] Anion Gap 8 3 - 16 mmol/L 09/08/2023 2:41 PM EDT [facility] BUN 9 7 - 25 mg/dL 09/08/2023 2:41 PM EDT [facility] Creatinine 0.78 0.60 - 1.30 mg/dL 09/08/2023 2:41 PM EDT [facility] Glucose 84 70 - 100 mg/dL 09/08/2023 2:41 PM EDT [facility] Calcium 9.3 8.6 - 10.3 mg/dL 09/08/2023 2:41 PM EDT [facility] Phosphorus 4.2 2.1 - 4.7 mg/dL 09/08/2023 2:41 PM EDT [facility] Albumin 3.4(L) 3.5 - 5.7 g/dL 09/08/2023 2:41 PM EDT [facility] Osmolality, Calculated 274(L) 278 - 305 mOsm/kg 09/08/2023 2:41 PM EDT [facility] EGFR >90 09/08/2023 2:41 PM EDT [facility] Comment: As of 2021, the [...] MD LAB BLOOD ORDERABLES Final Res ult [facility] [address] [facility] [place] [address], [facility] * (ABNORMAL) Hepatic Function Panel (09/08/2023 10:32 AM EDT) Total Bilirubin 7.3(H) 0.0 - 1.5 mg/dL 09/08/2023 2:41 PM EDT [facility] Bilirubin, Direct 2.76(H) 0.00 - 0.40 mg/dL 09/08/2023 2:41 PM EDT [facility] AST 47(H) 13 - 39 U/L 09/08/2023 2:41 PM EDT [facility] ALT 42 7 - 52 U/L 09/08/2023 2:41 PM EDT [facility] Alkaline Phosphatase 139(H) 36 - 125 U/L 09/08/2023 2:41 PM EDT [facility] Total Protein 7.2 6.4 - 8.9 g/dL 09/08/2023 2:41 PM EDT [facility] Albumin 3.4(L) 3.5 - 5.7 g/dL 09/08/2023 2:41 PM EDT [facility] Bilirubin, Indirect 4.54(H) 0.00 - 1.10 mg/dL 09/08/2023 2:41 PM EDT [facility] Plasma 09/08/2023 10:3 2 AM EDT 09/08/2023 2:23 PM EDT us Agustin Hurt MD LAB BLOOD ORDERABLES Final Res ult [facility] [address] [place] [address], [facility] * Hepatitis C RNA, Quant Reflex to Genotyp (09/08/2023 10:32 AM EDT) International Units Not Detected IU/mL 09/11/2023 10:30 AM EDT [facility] Comment:Test methodology for HCV RNA quantification is an FDA-approved nucleic acid amplification assay. The Lower Limit of Quantitation (LLOQ) is 15 IU/mL. The linear range of the assay is 15-100,000,000 IU/mL. The Limit of Detection (LoD) is 12.0 IU/mL for EDTA plasma. The reference range is Not Detected. IU log10 See Note log 10 IU/mL 09/11/2023 10:30 AM EDT [facility] Comment:HCV RNA not detected . Plasma 09/08/2023 10:3 2 AM EDT 09/08/2023 3:14 PM EDT Agustin Hurt MD LAB BLOOD ORDERABLES Final Res ult Performing Organization Address [facility] de Phone Number [facility] [address] [facility] * (ABNORMAL) AFP tumor marker (09/08/2023 10:32 AM EDT) AFP-Tumor Marker 9.7(H) 0.0 - 9.0 ng/mL 09/08/2023 4:08 PM EDT [facility] Serum 09/08/2023 10:3 2 AM EDT 09/08/2023 3:36 PM EDT Narrative [facility] - 09/08/2023 4:08 PM EDT The testing method for AFP is a chemiluminescent immunoassay manufactured by [employer] Concentrations of AFP obtained by different assay methods or kits may vary and cannot be used interchangeably. AFP results cannot be interpreted as absolute evidence of the presence or absence of malignant disease. Agustin Hurt MD LAB BLOOD ORDERABLES Final Res ult Performing Organization Address [facility] de Phone Number [facility] [address] [facility] * (ABNORMAL) Protime-INR (09/08/2023 10:32 AM EDT) Protime 17.9(H) 12.1 - 15.1 seconds 09/08/2023 2:36 PM EDT [facility]ALTH LAB INR 1.4(H) 0.9 - 1.1 09/08/2023 2:36 PM EDT [facility] Comment: RECOMMENDED THERAPEUTIC RANGES USING INR : ?Stable oral anticoagulant therapy: ? 2.0 - 3.0 ?Mechanical prosthetic heart valve: ? 2.5 - 3.5 ?Recurrent acute myocardial infarction: ? 2.5 - 3.5 Plasma 09/08/2023 10:3 2 AM EDT 09/08/2023 2:20 PM EDT us Agustin Hurt MD LAB BLOOD ORDERABLES Final Res ult [facility] [address] [place] [address], [facility] * (ABNORMAL) CBC (09/08/2023 10:32 AM EDT) WBC 7.6 3.8 - 10.8 10E3/uL 09/08/2023 2:40 PM EDT [facility] RBC 3.36(L) 3.80 - 5.10 10E6/uL 09/08/2023 2:40 PM EDT [facility] Hemoglobin 13.0 11.7 - 15.5 g/dL 09/08/2023 2:40 PM EDT [facility] Hematocrit 36.6 35.0 - 45.0 % 09/08/2023 2:40 PM EDT [facility] MCV 109.1(H) 80.0 - 100.0 fL 09/08/2023 2:40 PM EDT [facility] MCH 38.7(H) 27.0 - 33.0 pg 09/08/2023 2:40 PM EDT [facility] MCHC 35.5 32.0 - 36.0 g/dL 09/08/2023 2:40 PM EDT [facility] RDW 16.3(H) 11.0 - 15.0 % 09/08/2023 2:40 PM EDT [facility] Platelets 117(L) 140 - 400 10E3/uL 09/08/2023 2:40 PM EDT [facility] MPV 10.2 7.5 - 11.5 fL 09/08/2023 2:40 PM EDT [facility] Whole Blood 09/08/2023 10:3 2 AM EDT 09/08/2023 2:22 PM EDT us Agustin Hurt MD LAB BLOOD ORDERABLES Final Res ult [facility] [address] [facility] [place] [address], [facility] documented in this encounter Visit Diagnoses Diagnosis Decompensated hepatic cirrhosis (CMS-HCC) 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) documented in this encounter Care Teams Barista Relationship Specialty Start Date End Date Yonatan Graves DO [address] [place] [address] PCP - General 09/02/23 Farida Ortega, WET END OPERATOR [address] [place] [address] Referring Physician Gastroenterology 09/02/23 documented as of this encounter
--- OUTSIDE RECORDS SUMMARY | 2024-05-19 10:18 | XMS_ITS | Encounter Summary ---
Author Organization [facility] Address [address] [place] [address] Care Team Providers Care Cryptographic Vulnerability Analyst Name Role Phone Yonatan Graves DO Primary Care Provider Farida Ortega PARACHUTE OFFICER Unavailable [phone] Source Comments This information has been disclosed [...] release of HIV test results or diagnoses. [id number] Reason for Visit * Reason Comments Labs Only Encounter Details Date Type Department Care Team (Late st Contact Info) Description 09/25/2023 1:00 PM EDT Specimen [facility] Outreach Lab [address] [place] [address] Agustin Hurt MD Pre-transplant evaluation for chronic liver disease; Alcoholic cirrhosis, unspecified whether ascites present ([facility]-HCC) Social History Tobacco Use Types [...] Encounter [facility] ENDOSCOPY [address] [place] [address] Mario Ramirez MD [address] [place] [address] 07/28/2024 12:31 PM EST - 07/28/2024 1:01 PM EST Surgery [facility] ENDOSCOPY [address] [place] [address] Mario Ramirez MD [address] [place] [address] EGD Scheduled Procedures Name Priority Associated Diagnoses [...] EDT [facility] BENZODIAZEPINES NOT PRESENT 09/29/19 24 1:52 PM EDT HEALTH LAB CANNABINOIDS PRESENT 09/29/2023 1:52 PM EDT [facility]ALTH LAB THC-COOH 66 ng/mL 09/29/2023 1:52 PM EDT [facility] LAB TROLLEY COACH DRIVER STIMULANTS NOT PRESENT 1:52 PM EDT [facility]ALTH LAB OPIOID ANALGESICS NOT PRESENT 2023 1:52 PM EDT [facility] LAB OPIOID ANTAGONISTS NOT PRESENT 09/28 1:52 PM EDT [facility] SEDATIVES/MUSCLE RELAXANTS NOT PRESENT 09/29/2023 1:52 PM EDT [facility] TRICYCLIC ANTIDEPRESSANTS NOT PRESENT 09/29/2023 1:52 PM EDT [facility] Creatinine, Ur 26.30 mg/dL 09/26/2023 10:39 AM EDT [facility] Comment:Reference range not established for this test. pH 7.0 4.7 - 7.8 09/26/2023 10:39 AM EDT [facility] Specific [place] 1.013 1.003 - 1.035 09/26/2023 10:39 AM EDT [facility] Urine 09/25/2023 1:12 PM EDT 09/25/2023 1:23 PM EDT Narrative [facility] - 09/29/2023 1:52 PM EDT This test has been developed and its performance characteristics determined by [facility] which is certified under the [...] Agustin Hurt MD URINE ORDERABLES Final Result [facility] [address] documented in this encounter Visit Diagnoses Diagnosis Pre-transplant evaluation for chronic liver disease Alcoholic cirrhosis, unspecified whether ascites present (CMS-HCC) 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) documented in this encounter Additional Health Concerns Assessment Noted Time PHQ-9 Depression Total Score: 13 024 11:52 AM EDT documented as of this encounter Care Teams Cryptographic Vulnerability Analyst Relationship Specialty Start Date End Date Yonatan Graves DO [address] [place] [address] PCP - General 09/02/23 Farida Ortega, HARLEEN [address] [place] [address] Referring Physician Gastroenterology 09/02/23 documented as of this encounter
--- OUTSIDE RECORDS SUMMARY | 2024-05-19 10:19 | XMS_ITS | Encounter Summary ---
Author Organization [facility] Address [address] [place] [address] Care Team Providers Care Beater Out Leveling Machine Name Role Phone Yonatan Graves DO Primary [...] documented as of this encounter Care Teams Beater Out Leveling Machine Relationship Specialty Start Date End Date Yonatan Graves DO [address] [facility] [address] [place] [address] PCP - General 09/24/22 Adryan Bearden PA [facility] [place] [phone] Referring Physician Gastroenterology 09/24/22 documented as of this encounter
--- OUTSIDE RECORDS SUMMARY | 2024-05-19 10:19 | XMS_ITS | Encounter Summary ---
Author Organization [facility] Address [address] [place] [address] Care Team Providers Care Senior Java Developer Name Role Phone Yonatan Graves DO [...] as of this encounter Care Teams Senior Java Developer Relationship Specialty Start Date End Date Yonatan Graves DO [address] [facility] [address] [place] [address] PCP - General 09/24/22 Adryan Bearden PA [facility] [place] [phone] Referring Physician Gastroenterology 09/24/22 documented as of this encounter
--- OUTSIDE RECORDS SUMMARY | 2024-05-19 10:19 | XMS_ITS | Encounter Summary ---
Author Organization [facility] Address [address] [place], [place] [address] Care Team Providers Care Screen Tacker Name Role Phone Yonatan Graves DO Primary [...] documented as of this encounter Care Teams Screen Tacker Relationship Specialty Start Date End Date Yonatan Graves DO [address] [facility] [address] [place] [address] PCP - General 09/24/22 Adryan Bearden PA [facility] [place] [address] Referring Physician Gastroenterology 09/24/22 documented as of this encounter
--- OUTSIDE RECORDS SUMMARY | 2024-05-19 10:19 | XMS_ITS | Encounter Summary ---
Author Organization [facility] Address [address] [place] [address] Care Team Providers Care Drafter Marine Name Role Phone Yonatan Graves DO Primary [...] documented as of this encounter Care Teams Drafter Marine Relationship Specialty Start Date End Date Yonatan Graves DO [address] [facility] [address] [place] [address] PCP - General 09/24/22 Adryan Bearden PA [facility]8 [place] [phone] Referring Physician Gastroenterology 09/24/22 documented as of this encounter
--- OUTSIDE RECORDS SUMMARY | 2024-05-19 10:19 | XMS_ITS | Encounter Summary ---
Author Organization [facility] Address [address] [place] [address] Care Team Providers Care Police Chief Name Role Phone Yonatan Graves DO [...] documented as of this encounter Care Teams Police Chief Relationship Specialty Start Date End Date Yonatan Graves DO [address] [facility] [address] [place] [address] PCP - General 09/24/22 Adryan Bearden PA [facility]8 [place] [phone] Referring Physician Gastroenterology 09/24/22 documented as of this encounter
--- OUTSIDE RECORDS SUMMARY | 2024-05-19 10:19 | XMS_ITS | Encounter Summary ---
Author Organization [facility] Address [address] [place] [address] Care Team Providers Care Clicking Machine Operator Name Role Phone Yonatan Graves [...] documented as of this encounter Care Teams Clicking Machine Operator Relationship Specialty Start Date End Date Yonatan Graves DO [address] [facility] [address] [place] [address] PCP - General 09/24/22 Adryan Bearden PA [facility]8 [place] [phone] Referring Physician Gastroenterology 09/24/22 documented as of this encounter
--- OUTSIDE RECORDS SUMMARY | 2024-05-19 10:19 | XMS_ITS | Encounter Summary ---
Author Organization [facility] Address [address] [place] [address] Care Team Providers Care Assistant Field Hockey Coach Name Role Phone Yonatan Graves DO Primary [...] documented as of this encounter Care Teams Assistant Field Hockey Coach Relationship Specialty Start Date End Date Yonatan Graves DO [address] [facility] [address] [place] [address] PCP - General 09/24/22 Adryan Bearden PA [facility]8 [place] [phone] Referring Physician Gastroenterology 09/24/22 documented as of this encounter
--- OUTSIDE RECORDS SUMMARY | 2024-05-19 10:19 | XMS_ITS | Encounter Summary ---
Author Organization [facility] Address [address] [place] [address] Care Team Providers Care Houseperson Name Role Phone Yonatan Graves DO Primary [...] documented as of this encounter Care Teams Houseperson Relationship Specialty Start Date End Date Yonatan Graves DO [address] [facility] [address] [place] [address] PCP - General 09/24/22 Adryan Bearden PA [facility]8 [place] [phone] Referring Physician Gastroenterology 09/24/22 documented as of this encounter
--- OUTSIDE RECORDS SUMMARY | 2024-05-19 10:19 | XMS_ITS | Encounter Summary ---
Author Organization [facility] Address [address] [place] [address] Care Team Providers Care Wood Ski Maker Name Role Phone Yonatan Graves DO [...] as of this encounter Care Teams Wood Ski Maker Relationship Specialty Start Date End Date Yonatan Graves DO [address] [facility] [address] [place] [address] PCP - General 09/24/22 Adryan Bearden PA [facility]8 [place] [phone] Referring Physician Gastroenterology 09/24/22 documented as of this encounter
--- OUTSIDE RECORDS SUMMARY | 2024-05-19 10:19 | XMS_ITS | Encounter Summary ---
Author Organization [facility] Address [address] [place] [id number] Care Team Providers Care Youth Ministry Director Name Role Phone HildamikeroeYonatan Joseph LLANES Primary Care Provider Adryan Bearden Unavailable Encounter Details Date Type Department Care Team (Late st Contact Info) Description 10/28/2023 Telephone [facility] [address] [facility] [address] [place] [phone] Tresa Vieira, RN [facility] LIVER [id number] [address] [place] [address] Social History Tobacco Use Types [...] documented as of this encounter Care Teams Youth Ministry Director Relationship Specialty Start Date End Date Yonatan Graves DO [address] [place] [address] [address] [place] [address] PCP - General 09/24/22 Adryan Bearden PA [address] [place] [address] Referring Physician Gastroenterology 09/24/22 documented as of this encounter
--- OUTSIDE RECORDS SUMMARY | 2024-05-19 10:19 | XMS_ITS | Encounter Summary ---
Author Organization [facility] Address [address] [place] [address] Care Team Providers Care Surgical Nurse Name Role Phone Yontaan Graves DO Primary Care Provider Adryan Bearden [...] documented as of this encounter Care Teams Surgical Nurse Relationship Specialty Start Date End Date Yonatan Graves DO [address] [facility] [address] [place] [address] PCP - General 09/24/22 Adryan Bearden PA [facility]8 [place] [phone] Referring Physician Gastroenterology 09/24/22 documented as of this encounter
--- OUTSIDE RECORDS SUMMARY | 2024-05-19 10:19 | XMS_ITS | Encounter Summary ---
Author Organization [facility] Address [address] [place], [place] [address] Care Team Providers Care Group Tester Name Role Phone Yonatan Graves DO Primary [...] documented as of this encounter Care Teams Group Tester Relationship Specialty Start Date End Date Yonatan Graves DO [address] [facility] [address] [place] [address] PCP - General 09/24/22 Adryan Bearden PA [facility]8 [place] [address] Referring Physician Gastroenterology 09/24/22 documented as of this encounter
--- OUTSIDE RECORDS SUMMARY | 2024-05-19 10:19 | XMS_ITS | Encounter Summary ---
Author Organization [facility] Address [address] [place] [id number] Care Team Providers Care Turnstile Collector Name Role Phone Yonatan Graves DO Primary [...] documented as of this encounter Care Teams Turnstile Collector Relationship Specialty Start Date End Date Yonatan Graves DO [address] [facility] [address] [place] [address] PCP - General 09/24/22 Adryan Bearden PA [facility]8 [place] [phone] Referring Physician Gastroenterology 09/24/22 documented as of this encounter
--- OUTSIDE RECORDS SUMMARY | 2024-05-19 10:19 | XMS_ITS | Encounter Summary ---
Author Organization Address [address] [place] [address] Care Team Providers Care Computer Help Desk Representative Name Role Phone Yonatan Graves DO Primary [...] as of this encounter Care Teams Computer Help Desk Representative Relationship Specialty Start Date End Date Yonatan Graves DO [address] [facility] [address] [place] [address] PCP - General 09/24/22 Adryan Bearden PA [facility]8 [place] [phone] Referring Physician Gastroenterology 09/24/22 documented as of this encounter
--- OUTSIDE RECORDS SUMMARY | 2024-05-19 10:19 | XMS_ITS | Encounter Summary ---
Author Organization [facility] Address [address] [place], [place] [id number] Care Team Providers Care Operations Research Engineer Name Role Phone Yonatan Graves DO [...] as of this encounter Care Teams Operations Research Engineer Relationship Specialty Start Date End Date Yonatan Graves DO [address] [facility] [address] [place] [address] PCP - General 09/24/22 Adryan Bearden PA [facility] [place] [address] Referring Physician Gastroenterology 09/24/22 documented as of this encounter
--- OUTSIDE RECORDS SUMMARY | 2024-05-19 10:19 | XMS_ITS | Encounter Summary ---
Author Organization [facility] Address [address] [place] [address] Care Team Providers Care Glass Silverer Name Role Phone Yonatan Graves DO Primary [...] documented as of this encounter Care Teams Glass Silverer Relationship Specialty Start Date End Date Yonatan Graves DO [address] [facility] [address] [place] [address] PCP - General 09/24/22 Adryan Bearden PA [facility]8 [place] [phone] Referring Physician Gastroenterology 09/24/22 documented as of this encounter
--- OUTSIDE RECORDS SUMMARY | 2024-05-19 10:19 | XMS_ITS | Encounter Summary ---
Author Organization [facility] Address [address] [place] [address] Care Team Providers Care Feather Boner Name Role Phone Yonatan Graves DO Primary Care Provider Adryan Bearden Unavailable Encounter Details Date Type Department Care Team (Latest Contact Info) Description 01/28/2024 Travel Social History Tobacco Use Types Packs/Day [...] documented as of this encounter Care Teams Feather Boner Relationship Specialty Start Date End Date Yonatan Graves DO [address] [facility] [address] [place] [address] PCP - General 09/24/22 Adryan Bearden PA [facility]8 [place] [phone] Referring Physician Gastroenterology 09/24/22 documented as of this encounter
--- OUTSIDE RECORDS SUMMARY | 2024-05-19 10:19 | XMS_ITS | Encounter Summary ---
Author Organization [facility] Address [address] [place] [address] Care Team Providers Care Claim Clerk Name Role Phone Yonatan Graves DO [...] documented as of this encounter Care Teams Claim Clerk Relationship Specialty Start Date End Date Yonatan Graves DO [address] [facility] [address] [place] [address] PCP - General 09/24/22 Adryan Bearden PA [facility]8 [place] [phone] Referring Physician Gastroenterology 09/24/22 documented as of this encounter
--- OUTSIDE RECORDS SUMMARY | 2024-05-19 10:19 | XMS_ITS | Encounter Summary ---
Author Organization [facility] Address [address] [place] [id number] Care Team Providers Care Quality Improvement Manager Name Role Phone Yonatan Graves Joseph LLANES Primary Care Provider Adryan Bearden Unavailable Reason for Visit * Reason Onset Date Comments Med Refill 09/08/2023 Encounter Details Date Type Department Care Team (Late st Contact Info) Description 09/08/2023 Refill [facility] [address] [place] [address] Farida Ortega D, PHARMACY TECHNICIAN PROGRAM DIRECTOR [address] [place] [address] Social History Tobacco Use Types [...] documented as of this encounter Care Teams Quality Improvement Manager Relationship Specialty Start Date End Date Yonatan Graves DO [address] [place] [address] [address] [place] [address] PCP - General 09/24/22 Adryan Bearden PA [address] [place], [place] [phone] Referring Physician Gastroenterology 09/24/22 documented as of this encounter
--- OUTSIDE RECORDS SUMMARY | 2024-05-19 10:19 | XMS_ITS | Encounter Summary ---
Author Organization [facility] Address [address] [place] [address] Care Team Providers Care Adjunct Physics Instructor Name Role Phone Yonatan Graves DO [...] Time PHQ-9 Depression Total Score: 8 10/16/19 24 8:02 AM EDT A fall risk assessment has been complete d for the patient 10/07/2023 9:46 AM EDT A Body Mass Index follow-up plan has been documented for the patient 10/18/2023 1:28 PM EDT documented as of this encounter Care Teams Adjunct Physics Instructor Relationship Specialty Start Date End Date Yonatan Graves DO [address] [facility] [address] [place] [address] PCP - General 09/24/22 Adryan Bearden PA [facility]8 [place] [phone] Referring Physician Gastroenterology 09/24/22 documented as of this encounter
--- OUTSIDE RECORDS SUMMARY | 2024-05-19 10:19 | XMS_ITS | Encounter Summary ---
Author Organization [facility] Address [address] [place] [address] Care Team Providers Care Ciso Name Role [...] Date End Date Yonatan Graves DO [address] [facility] [address] [place] [address] PCP - General 09/24/22 Adryan Bearden PA [facility]8 [place] [phone] Referring Physician Gastroenterology 09/24/22 documented as of this encounter
--- OUTSIDE RECORDS SUMMARY | 2024-05-19 10:19 | XMS_ITS | Encounter Summary ---
Author Organization [facility] Address [address] [place] [address] Care Team Providers Care Third Shift Lieutenant Name Role Phone Yonatan Graves DO Primary [...] documented as of this encounter Care Teams Third Shift Lieutenant Relationship Specialty Start Date End Date Yonatan Graves DO [address] [facility] [address] [place] [address] PCP - General 09/24/22 Adryan Bearden PA [facility]8 [place] [phone] Referring Physician Gastroenterology 09/24/22 documented as of this encounter
--- OUTSIDE RECORDS SUMMARY | 2024-05-19 10:19 | XMS_ITS | Encounter Summary ---
Author Organization [facility] Address [address] [place] [address] Care Team Providers Care Facilities Management Executive Name Role Phone Yonatan Graves DO Primary Care Provider Adryan Bearden Unavailable Encounter Details Date Type Department Care Team (Latest Contact Info) Description 05/13/2024 Travel Social History Tobacco Use Types Packs/Day [...] documented as of this encounter Care Teams Facilities Management Executive Relationship Specialty Start Date End Date Yonatan Graves DO [address] [facility] [address] [place] [address] PCP - General 09/24/22 Adryan Bearden PA [facility]8 [place] [phone] Referring Physician Gastroenterology 09/24/22 documented as of this encounter
--- OUTSIDE RECORDS SUMMARY | 2024-05-19 10:19 | XMS_ITS | Encounter Summary ---
Author Organization [facility] Address [address] [place], [place] [phone] Care Team Providers Care Floor Plan Adjuster Name Role Phone Yonatan Graves DO Primary [...] documented as of this encounter Care Teams Floor Plan Adjuster Relationship Specialty Start Date End Date Yonatan Graves DO [address] [facility] [address] [place] [address] PCP - General 09/24/22 Adryan Bearden PA [facility]8 [place] [address] Referring Physician Gastroenterology 09/24/22 documented as of this encounter
--- OUTSIDE RECORDS SUMMARY | 2024-05-19 10:19 | XMS_ITS | Encounter Summary ---
Author Organization [facility] Address [address] [place], [place] [phone] Care Team Providers Care Enamel Machine Operator Name Role Phone Yonatan Graves [...] documented as of this encounter Care Teams Enamel Machine Operator Relationship Specialty Start Date End Date Yonatan Graves DO [address] [facility] [address] [place] [address] PCP - General 09/24/22 Adryan Bearden PA [facility] [place] [address] Referring Physician Gastroenterology 09/24/22 documented as of this encounter
--- OUTSIDE RECORDS SUMMARY | 2024-05-19 10:19 | XMS_ITS | Encounter Summary ---
Author Organization [facility] Address [address] [place] [address] Care Team Providers Care Liquor Stores And Agencies Supervisor Name Role Phone Yonatan Graves DO [...] documented as of this encounter Care Teams Liquor Stores And Agencies Supervisor Relationship Specialty Start Date End Date Yonatan Graves DO [address] [facility] [address] [place] [address] PCP - General 09/24/22 Adryan Bearden PA [facility]8 [place] [phone] Referring Physician Gastroenterology 09/24/22 documented as of this encounter
--- OUTSIDE RECORDS SUMMARY | 2024-05-19 10:19 | XMS_ITS | Encounter Summary ---
Author Organization [facility] Address [address] [place] [address] Care Team Providers Care Call Center Nurse Name Role Phone Yonatan Graves DO [...] documented as of this encounter Care Teams Call Center Nurse Relationship Specialty Start Date End Date Yonatan Graves DO [address] [facility] [address] [place] [address] PCP - General 09/24/22 Adryan Bearden PA [facility]8 [place] [phone] Referring Physician Gastroenterology 09/24/22 documented as of this encounter
--- OUTSIDE RECORDS SUMMARY | 2024-05-19 10:19 | XMS_ITS | Encounter Summary ---
Author Organization [facility] Address [address] [place] [address] Care Team Providers Care Adjunct History Instructor Name Role Phone Yonatan Graves DO [...] as of this encounter Care Teams Adjunct History Instructor Relationship Specialty Start Date End Date Yonatan Graves DO [address] [facility] [address] [place] [address] PCP - General 09/24/22 Adryan Bearden PA [facility]8 [place] [phone] Referring Physician Gastroenterology 09/24/22 documented as of this encounter
--- OUTSIDE RECORDS SUMMARY | 2024-05-19 10:19 | XMS_ITS | Encounter Summary ---
Author Organization [facility] Address [address] [place] [address] Care Team Providers Care Steam Presser Name Role Phone Yonatan Graves DO Primary [...] documented as of this encounter Care Teams Steam Presser Relationship Specialty Start Date End Date Yonatan Graves DO [address] [facility] [address] [place] [address] PCP - General 09/24/22 Adryan Bearden PA [facility] [place] [address] Referring Physician Gastroenterology 09/24/22 documented as of this encounter
--- OUTSIDE RECORDS SUMMARY | 2024-05-19 10:19 | XMS_ITS | Encounter Summary ---
Author Organization [facility] Address [address] [place] [address] Care Team Providers Care Home Assessment Nurse Name Role Phone Yonatan Graves DO [...] documented as of this encounter Care Teams Home Assessment Nurse Relationship Specialty Start Date End Date Yonatan Graves DO [address] [facility] [address] [place] [address] PCP - General 09/24/22 Adryan Bearden PA [facility]8 [place] [phone] Referring Physician Gastroenterology 09/24/22 documented as of this encounter
--- OUTSIDE RECORDS SUMMARY | 2024-05-19 10:19 | XMS_ITS | Encounter Summary ---
Author Organization [facility] Address [address] [place] [address] Care Team Providers Care Media Technician Name Role Phone Yonatan Graves DO [...] documented as of this encounter Care Teams Media Technician Relationship Specialty Start Date End Date Yonatan Graves DO [address] [facility] [address] [place] [address] PCP - General 09/24/22 Adryan Bearden PA [facility] [place] [phone] Referring Physician Gastroenterology 09/24/22 documented as of this encounter
--- OUTSIDE RECORDS SUMMARY | 2024-05-19 10:19 | XMS_ITS | Encounter Summary ---
Author Organization [facility] Address [address] [place] [address] Care Team Providers Care Dental Service Technician Name Role Phone Yonatan Graves DO [...] documented as of this encounter Care Teams Dental Service Technician Relationship Specialty Start Date End Date Yonatan Graves DO [address] [facility] [address] [place] [address] PCP - General 09/24/22 Adryan Bearden PA [facility] [place] [phone] Referring Physician Gastroenterology 09/24/22 documented as of this encounter
--- OUTSIDE RECORDS SUMMARY | 2024-05-19 10:19 | XMS_ITS | Encounter Summary ---
Author Organization [facility] Address [address] [place], [place] [address] Care Team Providers Care Cattle And Wheat Farmer Name Role Phone Yonatan Graves DO Primary [...] documented as of this encounter Care Teams Cattle And Wheat Farmer Relationship Specialty Start Date End Date Yonatan Graves DO [address] [facility] [address] [place] [address] PCP - General 09/24/22 Adryan Bearden PA [facility]8 [place] [address] Referring Physician Gastroenterology 09/24/22 documented as of this encounter
--- OUTSIDE RECORDS SUMMARY | 2024-05-19 10:19 | XMS_ITS | Encounter Summary ---
Author Organization [facility] Address [address] [place] [address] Care Team Providers Care Certified Teacher Assistant Name Role Phone Yonatan Graves DO Primary Care Provider Adryan Bearden Unavailable Reason for Referral * Consultation (Routine) - Closed Specialty Diagnoses / Procedures Referred By Contac t Referred To Contact Transplant Diagnoses End-stage liver disease (CMS/HCC) Eloisa Natarajan MD [address] [facility] [address] [place] [address] Phone: tel: fax: Referral ID Status Reason Start Date Expiration Date V isits Requested Visits Authorized [id number] Closed Specialty Services Required 09/25/2023 03/26/2025 1 1 Encounter Details Date Type Department Care Team (Late st Contact Info) Description 09/25/[address] [facility] [address] [facility] [address] [place] [address] Isabelle Broussard RN HOSPITAL LIVER [id number] [address] [place] [address] End-stage liver disease (CMS/HCC) (Primary [...] documented as of this encounter Care Teams Certified Teacher Assistant Relationship Specialty Start Date End Date Yonatan Graves DO [address] [place] [address] [address] [place] [address] PCP - General 09/24/22 Adryan Bearden PA [address] [place], [place] [phone] Referring Physician Gastroenterology 09/24/22 documented as of this encounter
--- OUTSIDE RECORDS SUMMARY | 2024-05-19 10:19 | XMS_ITS | Clinical Summary ---
Author Organization [facility] Address [address] [place] [address] Care Team Providers Care Ginner Name Role Phone HildamikeroeYonatan Joseph LLANES Primary [...] 3 (three) times a day. 90 tablet 10/05/10/20 Discontinu ed(Reorder ) Active Problems Problem Noted [...] organization. Date Type Department Care Team Description 05/13/2024 Travel 05/09/2024 Travel 04/20/2024 Travel 04/11/2024 Travel 04/05/2024 Travel 03/16/2024 Travel 03/05/2024 Travel 02/25/2024 Travel from Last 3 Months Immunizations Name [...] Last Done Comments [facility]-/Child/Adol SDOH Screenings 1990 [id number] Vaccine (#1) 1995 [facility]-Pneumococcal Vaccine: Pediatrics (0 [...] Most Recently Relevant to Health Maintenance Insurance [facility] MEDICAID [facility] MEDICAID Care Teams Ginner Relationship Specialty Start Date End Date Yonatan Graves DO [address] [facility] [address] [place] [address] PCP - General 09/24/22 Adryan Bearden PA [address] [place] [address] Referring Physician Gastroenterology 09/24/22
--- OUTSIDE RECORDS SUMMARY | 2024-05-19 10:19 | XMS_ITS | Encounter Summary ---
Author Organization [facility] Address [address] [place] [address] Care Team Providers Care Cipher Expert Name Role Phone Star Yonatan Joseph LLANES Primary Care Provider Adryan Bearden Unavailable Reason for Visit * Reason Comments Pre-Liver Txp Follow-up * Consultation (Routine) - Closed Specialty Diagnoses / Procedures Referred By Contac t Referred To Contact Transplant Diagnoses End-stage liver disease (CMS/HCC) Anupam Natarajan MD [address] [facility] [address] [place] [address] Phone: tel: fax: Referral ID Status Reason Start Date Expiration Date V isits Requested Visits Authorized [id number] Closed Specialty Services Required 09/25/2023 03/26/2025 1 1 Encounter Details Date Type Department Care Team (Late st Contact Info) Description 10/07/2023 10:00 AM EDT Office Visit [facility] [address] [facility] [address] [place] [address] Anupam Natarajan MD [address] [facility] [address] [place] [address] Ascites due to alcoholic cirrhosis [...] encounter Miscellaneous Notes * Addendum Note - Anupam Natarajan MD - 10/07/2023 10:00 AM EDTAddended by: ANUPAM NATARAJAN on: 10/07/2023 09:12 PM Modules accepted: [...] mg BID. The patient was seen at [facility] transplant center and was told she [...] - 10/07/2023 - 9:53 AM Cosigned by Anupam Natarajan MD at 10/07/2023 9:12 PM EDT Associated attestation - Anupam Natarajan MD - 10/07/2023 9:12 PM EDT [...] gabapentin tid for AUD. Also seeing her therapist/QUALITY HEAD regularly, reviewed QUALITY HEAD's note and Dr. Guajardo's notes documented in [...] documented as of this encounter Care Teams Cipher Expert Relationship Specialty Start Date End Date Yonatan Graves DO [facility] [address] [place] [address] PCP - General 09/24/22 Adryan Bearden PA [address] [place] [address] Referring Physician Gastroenterology 09/24/22 documented as of this encounter
--- OUTSIDE RECORDS SUMMARY | 2024-05-19 10:19 | XMS_ITS | Encounter Summary ---
Author Organization [facility] Address [address] [id number] Care Team Providers Care Life Science Teacher Name Role Phone Star Yonatan Joseph LLANES Primary Care Provider Adryan Bearden Unavailable Encounter Details Date Type Department Care Team (Late st Contact Info) Description 09/25/2023 Orders Only [facility] [address] [facility] [address] [place] [id number] Isabelle Broussard, RN [facility] LIVER [id number] [address] [phone] End-stage liver disease (CMS/HCC) (Primary Dx) Social [...] (PLPEth) <10 ng/mL 10/09/2023 6:15 PM EDT [facility] ([facility]) PEth 16:0/18:1 (POPEth) <10 ng/mL 10/09/2023 6:15 PM EDT [facility] ([facility]) EER Peth See Note 10/09/2023 6:15 PM EDT [facility] ([facility]) PEth Interpretation See Comment 10/09/2023 6:15 PM EDT [facility] ([facility]) Blood Venous blood specimen / Unknown Venipuncture / Unknown 10/07/2023 8:09 AM EDT 10/07/2023 8:43 AM EDT Narrative [facility] ([facility]) - 10/09/2023 6:15 PM EDT PEth 16:0/18:1 (POPEth) Less than 10 ng/mL............Not detected Less than 20 ng/mL............Abstinence or light alcohol consumption 20 - 200 ng/mL................Moderate alcohol consumption Greater than 200 ng/mL........Heavy alcohol consumption or chronic alcohol use (Reference: Joycelyn Weller and Claude Ball 2018 J. Forensic Sci) Reference ranges are not well established. Authorized individuals can access the [facility] Enhanced Report using the following link: [email or web address] Phosphatidylethanol (PEth) is a group of phospholipids [...] developed and its performance characteristics determined by [facility]. It has not been cleared or approved by the U.S. Food and Drug Administration. This test was performed in a CLIA-certified laboratory and is intended for clinical purposes. Performed By: [facility] [address] [place] [id number] R Developer: Mark Atwood MD, PhD CLIA Number: [id number] Eloisa Natarajan MD LAB REF LAB BLOOD AND FLUI D ORD Final Result Performing Organization Address City/[facility]/ZIP Co de Phone Number [facility] (BEAKER) [address] [place] [phone] * (ABNORMAL) Alpha Fetoprotein, Serum (10/07/2023 8:09 AM EDT) Alpha Fetoprotein, Serum 16.0(H) <10.0 ng/mL 10/07/2023 9:31 AM EDT [facility] Blood Venous blood specimen / Unknown Venipuncture / Unknown 10/07/2023 8:09 AM EDT 10/07/2023 8:52 AM EDT [facility]CARE [facility] - 10/07/2023 9:31 AM EDT Performed by [facility] electrochemiluminescent immunoassay which is traceable to the 1st AFP IRP WHO Reference standard 72/255. Results obtained with different test methods or kits cannot be used interchangeably. Eloisa Natarajan MD LAB BLOOD ORDERABLES Final Result Performing Organization Address City/[facility]/ZIP Co de Phone Number HEALTHCARE LAB [address] [place] [address] * (ABNORMAL) Protime-INR (10/07/2023 8:09 AM EDT) Prothrombin Time 16.2(H) 12.0 - 14.3 sec LAB COAGULATION METHOD 10/07/2023 9:23 AM EDT HEALTHCARE LAB INR 1.3(H) 0.9 - 1.1 LAB COAGULATION METHOD 10/07/2023 9:23 AM EDT [facility] Blood Venous blood specimen / [...] INR 2.5 to 3.5 Prevention of recurrent OR ? INR 2.5 to 3.5 us Eloisa Natarajan MD LAB BLOOD ORDERABLES Final Result [facility] [address] [place] [address] * Nicotine Cotinine Metabolite (10/07/2023 8:09 AM EDT) Pathologist [facility] NICOTINE <5 <5 ng/mL 10/08/2023 1:32 PM EDT HEALTHCARE LAB Cotinine <5 <5 ng/mL 10/08/2023 1:32 PM EDT [facility] Blood Venous blood specimen / Unknown Venipuncture / Unknown 10/07/2023 8:09 AM EDT 10/07/2023 8:53 AM EDT Narrative HEALTHCARE LAB - 10/08/2023 1:32 PM EDT Testing performed by LC-MS/MS at the [facility] Special Chemistry/Toxicology Laboratory. This test was developed and its performance characteristics determined by [facility]. ??This assay has not been cleared by the FDA. ??The laboratory is regulated under CLIA as qualified to perform high-complexity testing. This test is used for clinical purposes. us Eloisa Natarajan MD LAB BLOOD ORDERABLES Final Result [facility] [address] [place] [address] * (ABNORMAL) Comprehensive Urine Drug Screening, Qualitative Assay, >= 27 Drug Classes (48:09 AM EDT) [facility] Acetaminophen Negative Negative 10/07/2023 3:44 PM EDT [...] Diazepam Negative Negative 10/07/2023 3:44 PM EDT [facility] Diltiazem Negative Negative 10/07/2023 3:44 PM EDT [facility] Diphenhydramine Negative Negative 3:44 PM EDT HEALTHCARE LAB Doxepine Negative Negative 10/07/2023 3:44 PM EDT [facility] Doxylamine Negative Negative 10/07/2023 3:44 PM EDT [facility] EDDP-Methadone metabolite Negative Negative 10/07/2023 3:44 PM EDT [facility] Fentanyl Negative Negative 10/07/2023 3:44 PM EDT [facility] Fluconazole Negative Negative 10/07/2023 3:44 PM EDT [facility] Fluoxetine Negative Negative 10/07/2023 3:44 PM EDT [facility] Guaifenesin Negative Negative 10/07/2023 3:44 PM EDT [facility] Haloperidol Negative Negative 10/07/2023 3:44 PM EDT [facility] Heroin/6-LAVELLE Negative Negative 10/07/2023 3:44 [...] MDMA Negative Negative 10/07/2023 3:44 PM EDT [facility] Memantine Negative Negative 10/07/2023 3:44 PM EDT [facility] Meperidine Negative Negative 10/07/2023 3:44 PM EDT [facility] Meprobamate Negative Negative 10/07/2023 3:44 PM EDT [facility] Metaxalone Negative Negative 10/07/2023 3:44 PM EDT [facility] Methamphetamine Negative Negative 3:44 PM EDT [facility] Methocarbamol Negative Negative 10/07/2023 3:44 PM EDT [facility] Methylecgonine Negative Negative 10/07/2023 3:44 PM EDT [facility] Metoclopramide Negative Negative 10/07/2023 3:44 PM EDT [facility] Metoprolol Negative Negative 10/07/2023 3:44 PM EDT [facility] Metronidazole Negative Negative 10/07/2023 3:44 PM EDT [facility] Midazolam Negative Negative 10/07/2023 3:44 PM EDT [facility] Midazolam Metabolite Negative Negative 10/07/2023 3:44 PM EDT [facility] Mirtazapine Negative Negative 10/07/2023 3:44 PM EDT [facility] Misc Test Result Negative Negative 10/07/19 3:44 PM EDT HEALTHCARE LAB Naproxen Negative Negative 10/07/2023 3:44 PM EDT [facility] Nefazodone Negative Negative 10/07/2023 3:44 PM EDT [facility] Norfentanyl Negative Negative 10/07/2023 3:44 PM EDT [facility] Nortriptyline Negative Negative 10/07/2023 3:44 PM EDT [facility] Ordanstron Negative Negative 10/07/2023 3:44 PM EDT [facility] Oxcarbazepine Negative Negative 10/07/2023 3:44 PM EDT [facility] Oxycodone Negative Negative 10/07/2023 3:44 PM EDT [facility] Paroxethine Negative Negative 10/07/2023 3:44 [...] Propranolol Negative Negative 10/07/2023 3:44 PM EDT [facility] Quetiapine Negative Negative 10/07/2023 3:44 PM EDT [facility] Quinine Negative Negative 10/07/2023 3:44 PM EDT [facility] Rantidine Negative Negative 10/07/2023 3:44 PM EDT [facility] Sertraline Negative Negative 10/07/2023 3:44 PM EDT [facility] Spironolactone Positive(A) Negative 3:44 PM EDT [facility] Tizanidine Negative Negative 10/07/2023 3:44 PM EDT [facility] Topiramate Negative Negative 10/07/2023 3:44 PM EDT [facility] Tramadol Negative Negative 10/07/2023 3:44 PM EDT [facility] Trazadone/ Trazadone metabolite Negative Negative 10/07/2023 3:44 PM EDT [facility] Trimethoprim Negative Negative 10/07/2023 3:44 PM EDT [facility] Valproic Acid Negative Negative 10/07/2023 3:44 PM EDT [facility] Venlafaxine Negative Negative 10/07/2023 3:44 PM EDT [facility] Verapamil Negative Negative 10/07/2023 3:44 PM EDT [facility] Zolpidem Negative Negative 10/07/2023 3:44 PM EDT [facility] Urine Urine specimen obtained by [...] developed and its performance characteristics determined by [facility].It has not been cleared or approved by the FDA.The laboratory is regulated under CLIA as qualified to perform high-complexity testing. This test is used for clinical purposes. Testing is performed at the [facility], Special Chemistry Laboratory. us Eloisa Natarajan MD LAB URINE ORDERABLES Final Result [facility] [address] [place] [phone] * (ABNORMAL) Comprehensive metabolic panel (10/07/2023 8:09 AM EDT) Glucose, Plasma 103(H) 74 - 99 mg/dL 10/07/2023 9:24 AM EDT [facility] BUN, Plasma 10 7 - 21 mg/dL 10/07/2023 9:24 AM EDT [facility] Creatinine, Plasma 0.80 0.60 - 1.10 mg/dL 10/07/2023 9:24 AM EDT [facility] BUN/Creatinine Ratio 13 10/07/2023 9:24 AM EDT [facility] Sodium, Plasma 127(L) 136 - 145 mmol/L 10/07/2023 9:24 AM EDT [facility] Potassium, Plasma 3.7 3.7 - 4.8 mmol/L 10/07/2023 9:24 AM EDT [facility] Chloride, Plasma 93(L) 97 - 107 mmol/L 10/07/2023 9:24 AM EDT [facility] CO2, Plasma 21(L) 22 - 29 mmol/L 10/07/2023 9:24 AM EDT [facility] Anion Gap 13 6 - 16 mmol/L 10/07/2023 9:24 AM EDT [facility] Total Calcium, Plasma 8.7(L) 8.9 - 10.2 mg/dL 10/07/2023 9:24 AM EDT [facility] Total Protein 7.1 6.3 - 7.9 g/dL 10/07/2023 9:24 AM EDT [facility] Albumin, Plasma 3.3(L) 3.5 - 5.2 g/dL 10/07/2023 9:24 AM EDT [facility] AST, Plasma 56(H) 10 - 35 U/L 10/07/2023 9:24 AM EDT [facility] ALT, Plasma 55(H) 10 - 35 U/L 10/07/2023 9:24 AM EDT [facility] Alkaline Phosphatase, Plasma 172(H) 35 - 104 U/L 10/07/2023 9:24 AM EDT [facility] Total Bilirubin, Plasma 3.6(H) 0.2 - 1.1 mg/dL 10/07/2023 9:24 AM EDT [facility] eGFRcr 99.9 mL/min/1.7 3m*2 10/07/2023 9:24 AM EDT [facility] Comment:Reported eGFRcr in m L/min/1.73m2 is based the CKD-EPI 2020 equation that does not use a race coefficient. Blood Venous blood specimen / Unknown Venipuncture / Unknown 10/07/2023 8:09 AM EDT 10/07/2023 8:52 AM EDT us Eloisa Natarajan MD LAB BLOOD ORDERABLES Final Result Performing Organization Address City/State/[facility] Co de Phone Number [facility] [address] [place] [phone] * (ABNORMAL) CBC w/o differential (10/07/2023 8:09 AM EDT) WBC Count 6.60 3.70 - 10.30 10*3/uL LAB HEMATOLOGY METHOD 10/07/2023 10:46 AM EDT [facility] RBC Count 2.89(L) 3.90 - 5.20 10*6/uL LAB HEMATOLOGY METHOD 10/07/2023 10:46 AM EDT [facility] HGB 10.6(L) 11.2 - 15.7 g/dL LAB HEMATOLOGY METHOD 10/07/2023 10:46 AM EDT [facility] HCT 31.9(L) 34.0 - 45.0 % LAB HEMATOLOGY METHOD 10/07/2023 10:46 AM EDT [facility] Platelet Count 94(L) 155 - 369 10*3/uL LAB HEMATOLOGY METHOD 10/07/2023 10:46 AM EDT [facility] MCV 110(H) 79 - 98 fL LAB HEMATOLOGY METHOD 10/07/2023 10:46 AM EDT [facility] MCH 36.7(H) 26.0 - 32.0 pg LAB HEMATOLOGY METHOD 10/07/2023 10:46 AM EDT [facility] MCHC 33.2 30.7 - 35.5 g/dL LAB HEMATOLOGY METHOD 10/07/2023 10:46 AM EDT [facility] RDW 14.1 11.5 - 14.5 % LAB HEMATOLOGY METHOD 10/07/2023 10:46 AM EDT [facility] MPV 10.9 8.8 - 12.5 fL LAB HEMATOLOGY METHOD 10/07/2023 10:46 AM EDT [facility] nRBC 0.0 <=0.0 per 100 WBCs LAB HEMATOLOGY METHOD 10/07/2023 10:46 AM EDT [facility] Blood Venous blood specimen / Unknown Venipuncture / Unknown 10/07/2023 8:09 AM EDT 10/07/2023 9:06 AM EDT us Eloisa Natarajan MD LAB BLOOD ORDERABLES Final Result [facility] [address] [place] [address] * Alcohol Urine (10/07/2023 8:09 AM EDT) [facility] Alcohol Urine Negative Negative 10/07/2023 2:55 PM EDT [facility] Urine Urine specimen obtained by clean catch procedure / Unknown Non-blood Collection / Unknown 10/07/2023 8:09 AM EDT 10/07/2023 9:35 AM EDT Narrative [facility] - 10/07/2023 2:55 PM EDT The correlation between urine and serum ethanol concentration is highly variable. Test performed by Gas Chromatography at the [facility] Special Chemistry Laboratory. This test was developed and its performance characteristics determined by [facility]. It has not been cleared or approved by the FDA.The laboratory is regulated under CLIA as qualified to perform high-complexity testing. This test is used for clinical purposes only. The correlation between urine and serum ethanol concentration is highly variable. Test performed by Gas Chromatography at the [facility] Chemistry Laboratory. This test was developed and its performance characteristics determined by [facility]. It has not been cleared or approved by the FDA.The laboratory is regulated under CLIA as qualified to perform high-complexity testing. This test is used for clinical purposes only. Eloisa Natarajan MD LAB URINE ORDERABLES Final Result [facility] [address] [place] [address] documented in this encounter Visit Diagnoses Diagnosis [...] documented as of this encounter Care Teams Life Science Teacher Relationship Specialty Start Date End Date Yonatan Graves DO [address] [place] [address] [address] [place] [address] PCP - General 09/24/22 Adryan Bearden PA [address] [place] [phone] Referring Physician Gastroenterology 09/24/22 documented as of this encounter
[2024-05-19 10:20] VITALS: BP 108/65; PULSE 79; RESP 18; TEMP 36.9; O2SAT 99; BMI 24.3
--- OUTSIDE RECORDS SUMMARY | 2024-05-19 10:20 | XMS_ITS | Encounter Summary ---
Author Organization Healthcare Address [address] [place] [address] Care Team Providers Care Food Adviser Name Role Phone HildamikeroeYonatan Joseph LLANES Primary Care Provider Adryan Bearden Unavailable Reason for Visit * Reason Comments Swelling Encounter Details Date Type Department Care Team (Late st Contact Info) Description 08/28/2023 10:21 AM EST - 08/28/2023 1:10 PM EST Emergency [facility] S Emergency Department [address] [place] [address] Jasen Blanco MD [address] [place] [address] Ascites due to alcoholic cirrhosis [...] be sent through Care Everywhere. * Cirrhosis (Sammarinese) documented in this encounter Medications at Time [...] time. History provided by: Patient and spouse pattern hanger used: No No data recorded Patient History [...] with the patient/family because this would not place change roof bolter. Lab results were reviewed independently and can [...] worsening problems or concerns. Discharge References/Attachments Cirrhosis (Sammarinese) Disposition Discharge AVS (Printed 08/28/2023) There are [...] ECG ADULT STAT 08/28/2023 10:54 AM EST [facility] ED POCUS PROCDOC Routine 08/28/2023 9:46 [...] URINE ORDERABLES Fin al Result [facility]ARE [facility] [address] [place] [address] * Urinalysis with reflex microscopic (Culture NOT Included) (08/28/2023 11:41 AM EST) Color, Urine Yellow LAB URINALYSIS - AUTOMATED METHOD 08/28/2023 11:50 AM EST [facility] Clarity, Urine Clear LAB URINALYSIS - AUTOMATED METHOD 08/28/2023 11:50 AM EST [facility] Spec Pearson, Urine 1.011 <=1.005 to >=1.030 LAB URINALYSIS - AUTOMATED METHOD 08/28/2023 11:50 AM EST [facility] pH, Urine 7.5 4.5 to 8 LAB URINALYSIS - AUTOMATED METHOD 08/28/2023 11:50 AM EST [facility] Protein, Urine Negative Negative mg/dL LAB URINALYSIS - AUTOMATED METHOD 08/28/2023 11:50 AM EST [facility] Glucose, Urine Negative Negative mg/dL LAB URINALYSIS - AUTOMATED METHOD 08/28/2023 11:50 AM EST [facility] Ketones, Urine Negative Negative mg/dL LAB URINALYSIS - AUTOMATED METHOD 08/28/2023 11:50 AM EST [facility] Blood, Urine Negative Negative LAB URINALYSIS - AUTOMATED METHOD 08/28/2023 11:50 AM EST [facility] Bilirubin, Urine Negative Negative LAB URINALYSIS - AUTOMATED METHOD 08/28/2023 11:50 AM EST [facility] Urobilinogen, Urine 1.0 0.2 to 1.0 mg/dL LAB URINALYSIS - AUTOMATED METHOD 08/28/2023 11:50 AM EST [facility] Leukocytes, Urine Negative Negative LAB URINALYSIS - AUTOMATED METHOD 08/28/2023 11:50 AM EST [facility] Nitrite, Urine Negative Negative LAB URINALYSIS - AUTOMATED METHOD 08/28/2023 11:50 AM EST [facility] Urine Urine specimen obtained by clean catch procedure / Unknown Non-blood Collection / Unknown 08/28/2023 11:41 AM EST 08/28/2023 11:45 AM EST us Jasen Blanco MD LAB URINE ORDERABLES Fin al Result [facility] [address] [place] [address] * ED HIV 1/2 Antibody/Antigen Screen w/Reflex to HIV 1/2 Differentiation (08/28/2023 11:39 AM EST) Pathologist [facility] HIV 1 & 2 Antibody/Antigen Screen Non Reactive Non Reactive 08/28/2023 12:23 PM EST [facility] Comment:Screening for HIV 1 & 2 antibodies, and P24 antigen is NONREACTIVE. No confirmatory testing is required. Blood Venous blood specimen / Unknown Venipuncture / Unknown 08/28/2023 11:39 AM EST 08/28/2023 11:45 AM EST Jasen Blanco MD LAB BLOOD ORDERABLES Fin al Result Performing Organization Address City/[facility] Co de Phone Number [facility] [address] [place] [address] * Test Qualitative Plasma (08/28/2023 11:39 AM EST) Pathologist [facility] Test Negative Negative 08/28/2023 12:14 PM EST [facility] Blood Venous blood specimen / Unknown Venipuncture / Unknown 08/28/2023 11:39 AM EST 08/28/2023 11:45 AM EST Narrative HEALTHCARE LAB - 08/28/2023 12:14 PM EST Reference Range: Males and non- females: Negative. us Jasen Blanco MD LAB BLOOD ORDERABLES Fin al Result Performing Organization Address City/[facility] Co de Phone Number [facility] [address] [place] [address] * (ABNORMAL) Prothrombin Time/INR (08/28/2023 11:39 AM EST) Pathologist [facility] Prothrombin Time 20.8(H) 12.0 - 14.3 sec 08/28/2023 12:00 PM EST [facility] INR 1.8(H) 0.9 - 1.1 08/28/2023 12:00 PM EST [facility] [...] INR 2.5 to 3.5 Prevention of recurrent [place] ? INR 2.5 to 3.5 us Jasen Blanco MD LAB BLOOD ORDERABLES Jeison al Result [facility] [address] [place] [address] * (ABNORMAL) Comprehensive Metabolic Panel, Plasma (08/28/2023 11:39 AM EST) Glucose, Plasma 101(H) 74 - 99 mg/dL 08/28/2023 12:14 PM EST [facility] BUN, Plasma 5(L) 7 - 21 mg/dL 08/28/2023 12:14 PM EST [facility] Creatinine, Plasma 0.69 0.60 - 1.10 mg/dL 08/28/2023 12:14 PM EST [facility] BUN/Creatinine Ratio 7 08/28/2023 12:14 PM EST [facility] Sodium, Plasma 138 136 - 145 mmol/L 08/28/2023 12:14 PM EST [facility] Potassium, Plasma 3.6(L) 3.7 - 4.8 mmol/L 08/28/2023 12:14 PM EST [facility] Chloride, Plasma 107 97 - 107 mmol/L 08/28/2023 12:14 PM EST [facility] CO2, Plasma 23 22 - 29 mmol/L 08/28/2023 12:14 PM EST [facility] Anion Gap 8 6 - 16 mmol/L 08/28/2023 12:14 PM EST [facility] Total Calcium, Plasma 8.3(L) 8.9 - 10.2 mg/dL 08/28/2023 12:14 PM EST [facility] Total Protein 6.1(L) 6.3 - 7.9 g/dL 08/28/2023 12:14 PM EST [facility] Albumin, Plasma 2.8(L) 3.5 - 5.2 g/dL 08/28/2023 12:14 PM EST [facility] AST, Plasma 61(H) 10 - 35 U/L 08/28/2023 12:14 PM EST [facility] ALT, Plasma 39(H) 10 - 35 U/L 08/28/2023 12:14 PM EST [facility] Alkaline Phosphatase, Plasma 129(H) 35 - 104 U/L 08/28/2023 12:14 PM EST [facility] Total Bilirubin, Plasma 4.0(H) 0.2 - 1.1 mg/dL 08/28/2023 12:14 PM EST [facility] eGFRcr 117.7 mL/min/1.7 3m*2 08/28/2023 12:14 PM [address] [facility] Comment:Reported eGFRcr in m L/min/1.73m2 is based the CKD-EPI 2020 equation that does not use a race coefficient. Blood Venous blood specimen / Unknown Venipuncture / Unknown 08/28/2023 11:39 AM EST 08/28/2023 11:45 AM EST us Jasen Blanco MD LAB BLOOD ORDERABLES Fin al Result [facility] [address] [place] [address] * (ABNORMAL) CBC and Differential (08/28/2023 11:39 AM EST) WBC Count 7.26 3.70 - 10.30 10*3/uL LAB HEMATOLOGY METHOD 08/28/2023 11:57 AM EST [facility] RBC Count 3.19(L) 3.90 - 5.20 10*6/uL LAB HEMATOLOGY METHOD 08/28/2023 11:57 AM EST [facility] HGB 11.7 11.2 - 15.7 g/dL LAB HEMATOLOGY METHOD 08/28/2023 11:57 AM EST [facility] HCT 34.3 34.0 - 45.0 % LAB HEMATOLOGY METHOD 08/28/2023 11:57 AM EST [facility] Platelet Count 110(L) 155 - 369 10*3/uL LAB HEMATOLOGY METHOD 08/28/2023 11:57 AM EST [facility] MCV 108(H) 79 - 98 fL LAB HEMATOLOGY METHOD 08/28/2023 11:57 AM EST [facility] MCH 36.7(H) 26.0 - 32.0 pg LAB HEMATOLOGY METHOD 08/28/2023 11:57 AM EST [facility] MCHC 34.1 30.7 - 35.5 g/dL LAB HEMATOLOGY METHOD 08/28/2023 11:57 AM EST [facility] RDW 13.8 11.5 - 14.5 % LAB HEMATOLOGY METHOD 08/28/2023 11:57 AM EST [facility] MPV 11.0 8.8 - 12.5 fL LAB HEMATOLOGY METHOD 08/28/2023 11:57 AM EST [facility] nRBC 0.0 <=0.0 per 100 WBCs LAB HEMATOLOGY METHOD 08/28/2023 11:57 AM EST [facility] Differential Type Automated LAB HEMATOLOGY METHOD 08/28/2023 11:57 AM EST [facility] Neutrophils % 59.0 % LAB HEMATOLOGY METHOD 08/28/2023 11:57 AM EST [facility] Lymphocytes % 25.0 % LAB HEMATOLOGY METHOD 08/28/2023 11:57 AM EST [facility] Monocytes % 11.0 % LAB HEMATOLOGY METHOD 08/28/2023 11:57 AM EST [facility] Eosinophils % 4.0 % LAB HEMATOLOGY METHOD 08/28/2023 11:57 AM EST [facility] Basophils % 1.0 % LAB HEMATOLOGY METHOD 08/28/2023 11:57 AM EST [facility] Immature Granulocytes % 0.0 % LAB HEMATOLOGY METHOD 08/28/2023 11:57 AM EST [facility] Neutrophils Absolute 4.22 1.60 - 6.10 10*3/uL LAB HEMATOLOGY METHOD 08/28/2023 11:57 AM EST [facility] Lymphocytes Absolute 1.81 1.20 - 3.90 10*3/uL LAB HEMATOLOGY METHOD 08/28/2023 11:57 AM EST [facility] Monocytes Absolute 0.83 0.30 - 0.90 10*3/uL LAB HEMATOLOGY METHOD 08/28/2023 11:57 AM EST [facility] Eosinophils Absolute 0.31 0.00 - 0.50 10*3/uL LAB HEMATOLOGY METHOD 08/28/2023 11:57 AM EST [facility] Basophils Absolute 0.07 0.00 - 0.10 10*3/uL LAB HEMATOLOGY METHOD 08/28/2023 11:57 AM EST [facility] Immature Granulocytes Absolute 0.02 0.00 [...] ORDERABLES Fin al Result Performing Organization Address City/[facility]/ZIP Co de Phone Number [facility]ALTHCARE [facility] [address] [place] [address] * EKG now - STAT (adult) (08/28/2023 10:54 AM EST) EKG DIAGNOSIS CLASS Abnormal MUSE ECG Ventricular Rate 68 BPM MUSE ECG Atrial Rate 68 BPM MUSE ECG DC Interval 118 ms MUSE ECG QRSD Interval 78 ms MUSE ECG QT Interval 446 ms MUSE ECG QTC Interval 474 ms MUSE ECG P Edison 28 degrees MUSE ECG R Edison 14 degrees MUSE ECG T Wave Edison 30 degrees MUSE ECG Diagnosis Normal sinus rhythm MUSE ECG Diagnosis Cannot rule out MUSE ECG Diagnosis Anterior infarct MUSE ECG Diagnosis , age undetermined MUSE ECG Diagnosis Abnormal ECG MUSE ECG Diagnosis Confirmed by Adonis De Anda ([id number]) on 08/28/2023 8:01:34 PM MUSE ECG 08/28/2023 10:5 4 AM EST 08/28/2023 8:01 PM EST us Jasen Blanco MD ECG ORDERABLES Final Re sult MUSE ECG * [facility] ED POCUS PROCDOC (08/28/2023 9:46 AM [...] dose, On Janiya 08/28/23 at 1240, Routine Given 08/28/2023 12:37 [...] documented as of this encounter Care Teams Food Adviser Relationship Specialty Start Date End Date Yonatan Graves DO [address] [place] [address] [address] [place] [address] PCP - General 09/24/22 Adryan Bearden PA [address] [place], [place] [id number] Referring Physician Gastroenterology 09/24/22 documented as of this encounter
--- OUTSIDE RECORDS SUMMARY | 2024-05-19 10:20 | XMS_ITS | Encounter Summary ---
Author Organization [facility] Address [address] [place] [address] Care Team Providers Care Process Equipment Operator Name Role Phone Star Yonatan Joseph LLANES Primary Care Provider Adryan Bearden Unavailable Encounter Details Date Type Department Care Team (Late st Contact Info) Description 04/27/2023 Orders Only [facility] Medicine Specialties [address] [place] [address] Ana Rosa Hadley [facility] [address] [place] [address] Alcoholic cirrhosis of liver with ascites (CMS/HCC) [...] as of this encounter Care Teams Process Equipment Operator Relationship Specialty Start Date End Date Yonatan Graves DO [address] [place] [address] [address] [place] [address] PCP - General 09/24/22 Adryan Bearden PA [address] [place] [address] Referring Physician Gastroenterology 09/24/22 documented as of this encounter
--- OUTSIDE RECORDS SUMMARY | 2024-05-19 10:20 | XMS_ITS | Encounter Summary ---
Author Organization [facility] Address [address] [place] [address] Care Team Providers Care Sharepoint Architect Name Role Phone Yonatan Graves DO Primary Care Provider Adryan Bearden Unavailable Reason for Visit * Reason Comments Alcohol Problem Encounter Details Date Type Department Care Team (Late st Contact Info) Description 05/29/2023 11:00 AM EST Office Visit [facility] Medicine Specialties [address] [place] [address] Kierra Guajardo MD [address] [facility] [address] [place] [address] Alcohol use disorder (Primary Dx); [...] documented as of this encounter Care Teams Sharepoint Architect Relationship Specialty Start Date End Date Yonatan Graves DO [address] [place] [address] [address] [place] [address] PCP - General 09/24/22 Adryan Bearden PA [address] [place] [address] Referring Physician Gastroenterology 09/24/22 documented as of this encounter
--- OUTSIDE RECORDS SUMMARY | 2024-05-19 10:20 | XMS_ITS | Encounter Summary ---
Author Organization [facility] Address [address] [place] [address] Care Team Providers Care Administrative Volunteer Name Role Phone Yonatan Graves DO Primary [...] documented as of this encounter Care Teams Administrative Volunteer Relationship Specialty Start Date End Date Yonatan Graves DO [address] [place] [address] PCP - General 09/24/22 Adryan Bearden PA [facility] [place] [address] Referring Physician Gastroenterology 09/24/22 documented as of this encounter
--- OUTSIDE RECORDS SUMMARY | 2024-05-19 10:20 | XMS_ITS | Encounter Summary ---
Author Organization [facility] Address [address] [place] [address] Care Team Providers Care Dispensing Lead Name Role Phone Yonatan Graves DO Primary Care Provider Adryan Bearden Unavailable Reason for Referral * Transplant (Routine) - Authorized Specialty Diagnoses / Procedures Referred By Roselyn t Referred To Contact Transplant Diagnoses End-stage liver disease (CMS/HCC) Farida Ortega APRN [address] [address] Phone: tel: fax: Referral ID Status Reason Start Date Expiration Date Visits Requested Visits Authorized [id number] Authorized Specialty Services Required 08/28/2023 02/26/2025 999 999 Scheduling Instructions Pls requesting referral to [facility] liver transplant . * Imaging (Routine) - Pending Review Specialty Diagnoses / Procedures Referred By Contac t Referred To Contact Gastroenterology Diagnoses End-stage liver disease (CMS/HCC) Procedures EGD Farida Ortega APRN [address] [address] Phone: tel: fax: Referral ID Status Reason Start Date Expiration Date Visits Requested Visits Authorized [id number] Pending Review Specialty Services Required 08/28/2023 02/26/2025 1 1 Reason for Visit * Reason Comments Cirrhosis Encounter Details Date Type Department Care Team (Late st Contact Info) Description 08/28/2023 2:00 PM EST Office Visit [facility] Medicine Specialties [address] [place] [address] Farida Ortega, CHIEF CONSOLE OPERATOR [address] [place] [address] End-stage liver disease (CMS/HCC) (Primary [...] ago. She said she underwent Detox at [facility]. She was presented to ED this morning with c/o increase abdomen swelling, SOB and increase edema. She got discharged from the ED. Reports confusion, edward forgetting. She is furosemide 40 mg and spironolactone 100 mg . She said paracentesis was not performed as it was close to bowel. She said she is drinking lots of Gatorade. She is requesting referral to [facility] ( fax # [phone]). Liver history copied from previous labs 05/12/2023. [...] negative # Alcohol Use disorder. Following Dr. Guajardo. Encouraged to follow with Dr. Guajardo. Recently completed Detox at [facility]. Reports ETOH was 1 months ago. T [...] Patient confirms they are physically located in [place]? Yes If the patient is not physically located in [place], the provider has confirmed with [employer] [...] documented as of this encounter Care Teams Dispensing Lead Relationship Specialty Start Date End Date Yonatan Graves DO [address] [place] [address] [address] [place] [address] PCP - General 09/24/22 Adryan Bearden PA [address] [place] [address] Referring Physician Gastroenterology 09/24/22 documented as of this encounter
--- OUTSIDE RECORDS SUMMARY | 2024-05-19 10:20 | XMS_ITS | Encounter Summary ---
Author Organization Healthcare Address [address] [place] [address] Care Team Providers Care Crab Butcher Name Role Phone Ynoatan Graves Joseph LLANES Primary Care Provider Adryan Bearden Unavailable Reason for Visit * Reason Comments Alcohol Use Disorder Encounter Details Date Type Department Care Team (Late st Contact Info) Description 07/03/2023 10:00 AM EST Office Visit [facility] Medicine Specialties [address] [place] [address] Kierra Guajardo MD [address] [facility] [address] [place] [address] Alcohol use disorder (Primary Dx); [...] documented as of this encounter Care Teams Crab Butcher Relationship Specialty Start Date End Date Yonatan Graves DO [address] [place] [address] [address] [place] [address] PCP - General 09/24/22 Adryan Bearden PA [address] [place] [address] Referring Physician Gastroenterology 09/24/22 documented as of this encounter
--- OUTSIDE RECORDS SUMMARY | 2024-05-19 10:20 | XMS_ITS | Encounter Summary ---
Author Organization [facility] Address [address] [place] [address] Care Team Providers Care Tuberculosis Specialist Name Role Phone Yonatan Graves DO [...] documented as of this encounter Care Teams Tuberculosis Specialist Relationship Specialty Start Date End Date Yonatan Graves DO [facility] [address] [place] [address] PCP - General 09/24/22 Adryan Bearden PA [facility] [place] [address] Referring Physician Gastroenterology 09/24/22 documented as of this encounter
--- OUTSIDE RECORDS SUMMARY | 2024-05-19 10:20 | XMS_ITS | Encounter Summary ---
Author Organization Healthcare Address [address] [place] [address] Care Team Providers Care Intertype Operator Name Role Phone Yonatan Graves Joseph LLANES Primary Care Provider Adryan Bearden Unavailable Encounter Details Date Type Department Care Team (Late st Contact Info) Description 08/28/2023 Telephone [facility] Medicine Specialties [address] [place] [address] Iqra Hernández RN Social History Tobacco Use [...] documented as of this encounter Care Teams Intertype Operator Relationship Specialty Start Date End Date Yonatan Graves DO [facility] [address] [place] [address] PCP - General 09/24/22 Adryan Bearden PA [address] [place] [address] Referring Physician Gastroenterology 09/24/22 documented as of this encounter
--- OUTSIDE RECORDS SUMMARY | 2024-05-19 10:20 | XMS_ITS | Encounter Summary ---
Author Organization [facility] Address [address] [id number] Care Team Providers Care Catalytic Converter Operator Name Role Phone Yonatan Graves Joseph LLANES Primary Care Provider Adryan Bearden Unavailable Reason for Visit * Reason Comments Follow-up Alcohol Problem Encounter Details Date Type Department Care Team (Late st Contact Info) Description 05/22/2023 10:00 AM EST Office Visit [facility] Medicine Specialties [address] [place] [address] Kierra Guajardo MD [address] [facility] [address] [place] [address] Alcohol use disorder (Primary Dx); [...] documented as of this encounter Care Teams Catalytic Converter Operator Relationship Specialty Start Date End Date Yonatan Graves DO [address] [place] [address] [address] [place] [address] PCP - General 09/24/22 Adryan Bearden PA [address] [place] [address] Referring Physician Gastroenterology 09/24/22 documented as of this encounter
--- OUTSIDE RECORDS SUMMARY | 2024-05-19 10:20 | XMS_ITS | Encounter Summary ---
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) Liver lesion Procedures MR Abdomen w and wo IV Contrast Farida Ortega, ENROLLMENT MANAGEMENT VICE PRESIDENT [address] [facility] [address] [place] [address] Phone: tel: fax: Referral ID Status Reason Start Date Expiration Date V isits Requested Visits Authorized [id number] Authorized 04/10/2023 10/09/2024 1 2 Reason for Visit * Reason Comments End-Stage Liver Disease Encounter Details Date Type Department Care Team (Late st Contact Info) Description 04/10/2023 12:20 PM EDT Office Visit [facility] Medicine Specialties [address] [place] [address] Farida Ortega, ENROLLMENT MANAGEMENT VICE PRESIDENT [address] [place] [id number] 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) (Primary [...] Patient confirms they are physically located in [place]? Yes If the patient is not physically located in [place], the provider has confirmed with Legal thatthe [...] are consistent with and integrated into the [employer] Liver Diseases [...] using the following sequences: coronal single shot [id number] fast spin echo, axial T2 weighted sequences [...] are consistent with and integrated into the [employer] Associationfor the Study of Liver Diseases (AASLD) [...] 08/18/2023 3:18 PM us Farida D Shannon ENROLLMENT MANAGEMENT VICE PRESIDENT IMG MRI PROCEDURES Edited Result - Final * Comprehensive Metabolic Panel, Plasma (04/24/2023 11:39 AM EDT) Blood Venous blood specimen / Unknown us Farida D Shannon ENROLLMENT MANAGEMENT VICE PRESIDENT LAB BLOOD ORDERABLES Final Result Performing Organization Address City/[facility] Co de Phone Number EXTERNAL LAB * CBC W/O Differential (04/24/2023 11:39 AM EDT) Blood Venous blood specimen / Unknown us Farida D Shannon ENROLLMENT MANAGEMENT VICE PRESIDENT LAB BLOOD ORDERABLES Final Result Performing Organization Address City/[facility]/ZIP Co de Phone Number EXTERNAL LAB * Alpha Fetoprotein, Serum (04/24/2023) Blood Venous blood specimen / Unknown us Farida D Shannon ENROLLMENT MANAGEMENT VICE PRESIDENT LAB BLOOD ORDERABLES Final Result Performing Organization Address City/[facility]/ZIP Co de Phone Number EXTERNAL LAB * Prothrombin Time/INR (04/24/2023) Blood Venous blood specimen / Unknown us Farida Ortega ENROLLMENT MANAGEMENT VICE PRESIDENT LAB BLOOD ORDERABLES Final Result EXTERNAL LAB [...] documented as of this encounter Care Teams Toe Sewer Relationship Specialty Start Date End Date Yonatan Graves DO [address] [place] [address] [address] [place] [address] PCP - General 09/24/22 Adryan Bearden PA [address] [place] [address] Referring Physician Gastroenterology 09/24/22 documented as of this encounter
--- OUTSIDE RECORDS SUMMARY | 2024-05-19 10:20 | XMS_ITS | Encounter Summary ---
Author Organization [facility] Address [address] [place] [address] Care Team Providers Care Non Linear Editor Name Role Phone Yonatan Graves DO Primary [...] documented as of this encounter Care Teams Non Linear Editor Relationship Specialty Start Date End Date Yonatan Graves DO [address] [facility] [address] [place] [address] PCP - General 09/24/22 Adryan Bearden PA [facility]8 [place] [address] Referring Physician Gastroenterology 09/24/22 documented as of this encounter
--- OUTSIDE RECORDS SUMMARY | 2024-05-19 10:20 | XMS_ITS | Encounter Summary ---
Author Organization [facility] Address [address] [place] [address] Care Team Providers Care Inventory Worker Name Role Phone IrineoYonatan kramer Joseph LLANES Primary Care Provider Adryan Bearden Unavailable Reason for Visit * Reason Onset Date Comments Community Resources 05/29/2023 Encounter Details Date Type Department Care Team (Late st Contact Info) Description 05/29/2023 Telephone [facility] Medicine Specialties [address], 2nd [place] [address] Hortencia Rowell [facility] [address] Resources Social History Tobacco Use Types [...] who does not know her. SW called [facility], . They do accept her insurance. Pt [...] am not sure if she has a psychosocial rehabilitation counselor assigned to her. I do not believe any [facility] Social Workers help with disability. I am happy to check in with her on this though. I will check with her insurance and resources in [place]. Thank you! * Telephone Encounter - Hortencia Rowell - 05/29/2023 8:21 AM EST ----- Message from Kierra Guajardo MD sent at 05/29/2023 8:08 AM EST ----- Regarding: Counseling Resources [place] Hortencia, Do you know if this patient has an assigned SW? I am looking for places for individual therapy for her in [place]. I know she was working on getting [...] documented as of this encounter Care Teams Inventory Worker Relationship Specialty Start Date End Date Yonatan Graves DO [facility] [address] [place] [address] PCP - General 09/24/22 Adryan Bearden PA [facility]8 [place] [address] Referring Physician Gastroenterology 09/24/22 documented as of this encounter
--- OUTSIDE RECORDS SUMMARY | 2024-05-19 10:20 | XMS_ITS | Encounter Summary ---
Author Organization [facility] Address [address] [place] [address] Care Team Providers Care Rubber Covering Machine Operator Name Role Phone Yonatan Graves Joseph LLANES Primary Care Provider Adryan Bearden Unavailable Reason for Visit * Reason Comments Alcohol Use Disorder Encounter Details Date Type Department Care Team (Late st Contact Info) Description 07/17/2023 9:00 AM EST Office Visit [facility] Medicine Specialties [address] [place] [address] Kierra Guajardo MD [address] [facility] [address] [place] [address] Alcohol use disorder (Primary Dx); [...] documented as of this encounter Care Teams Rubber Covering Machine Operator Relationship Specialty Start Date End Date Yonatan Graves DO [address] [place] [address] [address] [place] [id number] PCP - General 09/24/22 Adryan Bearden PA [address] [place], [place] [id number] Referring Physician Gastroenterology 09/24/22 documented as of this encounter
--- OUTSIDE RECORDS SUMMARY | 2024-05-19 10:20 | XMS_ITS | Encounter Summary ---
Author Organization [facility] Address [address] [place] [address] Care Team Providers Care Customer Relations Consultant Name Role Phone Star Yonatan Joseph LLANES Primary Care Provider Adryan Bearden Unavailable Reason for Visit * Reason Comments Med Refill Encounter Details Date Type Department Care Team (Late st Contact Info) Description 05/08/2023 Refill [facility] [address] [facility] [address] [place] [address] Farida Ortega D, PUBLIC RECORDS OFFICER [address] [facility] [address] [place] [address] Social History Tobacco Use Types [...] documented as of this encounter Care Teams Customer Relations Consultant Relationship Specialty Start Date End Date Yonatan Graves DO [address] [place] [address] [address] [place] [address] PCP - General 09/24/22 Adryan Bearden PA [address] [place] [address] Referring Physician Gastroenterology 09/24/22 documented as of this encounter
--- OUTSIDE RECORDS SUMMARY | 2024-05-19 10:20 | XMS_ITS | Encounter Summary ---
Author Organization [facility] Address [address] [place] [address] Care Team Providers Care Supervisor Maintenance And Custodians Name Role Phone Yonatan Graves DO Primary [...] as of this encounter Care Teams Supervisor Maintenance And Custodians Relationship Specialty Start Date End Date Yonatan Graves DO [address] [facility] [address] [place] [address] PCP - General 09/24/22 Adryan Bearden PA [facility]8 [place] [address] Referring Physician Gastroenterology 09/24/22 documented as of this encounter
--- OUTSIDE RECORDS SUMMARY | 2024-05-19 10:20 | XMS_ITS | Encounter Summary ---
Author Organization [facility] Address [address] [place] [address] Care Team Providers Care Siding Coreboard Inspector Name Role Phone StarYonatan Joseph LLANES Primary Care Provider Adryan Bearden Unavailable Encounter Details Date Type Department Care Team (Late st Contact Info) Description 08/21/2023 Telephone [facility] Medicine Specialties [address], 2nd [place] [address] Michelle Alexander [facility] [address] [place] [address] Social History Tobacco Use Types Packs/Day Years [...] delay in having test results released in [facility] -Verbalized understanding, no questions, thanked me for calling * Telephone Encounter - Michelle Alexander CNA - 08/21/2023 11:41 AM EST Patient called wondering about getting MRI results from 08/18 sent to her [facility] CB: [phone] documented in this encounter Plan of Treatment [...] documented as of this encounter Care Teams Siding Coreboard Inspector Relationship Specialty Start Date End Date Yonatan Graves DO [facility] [address] [place] [address] PCP - General 09/24/22 Adryan Bearden PA [address] [place] [address] Referring Physician Gastroenterology 09/24/22 documented as of this encounter
--- OUTSIDE RECORDS SUMMARY | 2024-05-19 10:20 | XMS_ITS | Encounter Summary ---
Author Organization [facility] Address [address] [place] [address] Care Team Providers Care Trip Motor Operator Name Role Phone Yonatan Graves DO [...] documented as of this encounter Care Teams Trip Motor Operator Relationship Specialty Start Date End Date Yonatan Graves DO [address] [facility] [address] [place] [address] PCP - General 09/24/22 Adryan Bearden PA [facility]8 [place] [address] Referring Physician Gastroenterology 09/24/22 documented as of this encounter
--- OUTSIDE RECORDS SUMMARY | 2024-05-19 10:20 | XMS_ITS | Encounter Summary ---
Author Organization [facility] Address [address] [place] [address] Care Team Providers Care Christmas Tree Farmer Name Role Phone StarYonatan Joseph LLANES Primary Care Provider Adryan Bearden Unavailable Encounter Details Date Type Department Care Team (Late st Contact Info) Description 04/24/2023 Orders Only [facility] Medicine Specialties [address] 2nd [place] [address] Pao Salmeron, RN MEDICINE SPECIALTIES CLINIC Alcoholic [...] specimen / Unknown us Farida D Shannon JET OPERATOR LAB BLOOD ORDERABLES Final Result Performing Organization Address [facility] Co de Phone Number EXTERNAL LAB * Comprehensive Metabolic Panel, Plasma (04/24/2023 11:39 AM EDT) Blood Venous blood specimen / Unknown us Farida D Shannon JET OPERATOR LAB BLOOD ORDERABLES Final Result Performing Organization Address [facility] Co de Phone Number EXTERNAL LAB * Prothrombin Time/INR (04/24/2023) Blood Venous blood specimen / Unknown us Farida D Shannon JET OPERATOR LAB BLOOD ORDERABLES Final Result Performing Organization Address [facility] Co de Phone Number EXTERNAL LAB documented [...] documented as of this encounter Care Teams Christmas Tree Farmer Relationship Specialty Start Date End Date Yonatan Graves DO [address] [place] [address] [address] [place] [id number] PCP - General 09/24/22 Adryan Bearden PA [address] [place], [place] [id number] Referring Physician Gastroenterology 09/24/22 documented as of this encounter
--- OUTSIDE RECORDS SUMMARY | 2024-05-19 10:20 | XMS_ITS | Encounter Summary ---
Author Organization [facility] Address [address] [place] [address] Care Team Providers Care Factory Worker Name Role Phone Jodie Gravesew Joseph LLANES Primary Care Provider Adryan Bearden Unavailable Encounter Details Date Type Department Care Team (Late st Contact Info) Description 08/28/2023 Orders Only External Location [address] [place] [address] Provider, External Social History Tobacco Use Types [...] as of this encounter Care Teams Factory Worker Relationship Specialty Start Date End Date Yonatan Graves DO [address] [place] [address] [address] [place] [id number] PCP - General 09/24/22 Adryan Bearden PA [address] [place], [place] [id number] Referring Physician Gastroenterology 09/24/22 documented as of this encounter
--- OUTSIDE RECORDS SUMMARY | 2024-05-19 10:20 | XMS_ITS | Encounter Summary ---
Author Organization [facility] Address [address] [place] [address] Care Team Providers Care Shredder Tender Name Role Phone Yonatan Graves DO [...] documented as of this encounter Care Teams Shredder Tender Relationship Specialty Start Date End Date Yonatan Graves DO [address] [facility] [address] [place] [address] PCP - General 09/24/22 Adryan Bearden PA [facility]8 [place] [address] Referring Physician Gastroenterology 09/24/22 documented as of this encounter
--- OUTSIDE RECORDS SUMMARY | 2024-05-19 10:20 | XMS_ITS | Encounter Summary ---
Author Organization [facility] Address [address] [place] [address] Care Team Providers Care Boats Renter Name Role Phone Yonatan Graves DO Primary [...] documented as of this encounter Care Teams Boats Renter Relationship Specialty Start Date End Date Yonatan Graves DO [facility]8 [facility] [address] [place] [address] PCP - General 09/24/22 Adryan Bearden PA [facility]8 [place] [address] Referring Physician Gastroenterology 09/24/22 documented as of this encounter
--- OUTSIDE RECORDS SUMMARY | 2024-05-19 10:20 | XMS_ITS | Encounter Summary ---
Author Organization [facility] Address [address] [place] [address] Care Team Providers Care Manager Transportation Planning Name Role Phone Yonatan Graves DO Primary [...] as of this encounter Care Teams Manager Transportation Planning Relationship Specialty Start Date End Date Yonatan Graves DO [facility]8 [facility] [address] [place] [address] PCP - General 09/24/22 Adryan Bearden PA [facility]8 [place] [address] Referring Physician Gastroenterology 09/24/22 documented as of this encounter
--- OUTSIDE RECORDS SUMMARY | 2024-05-19 10:20 | XMS_ITS | Encounter Summary ---
Author Organization [facility] Address [address] [place] [id number] Care Team Providers Care Certified Medical Asst Name Role Phone Yonatan Graves Joseph LLANES Primary Care Provider Adryan Bearden Unavailable Reason for Visit * Reason Comments Follow-up Ascites Encounter Details Date Type Department Care Team (Late st Contact Info) Description 05/22/2023 12:20 PM EST Office Visit [facility] Medicine Specialties [address] [place] [address] Farida Ortega D, COMMUNITY RELATIONS DIRECTOR [address] [place] [address] Alcoholic cirrhosis of liver with ascites (CMS/HCC) (Primary Dx); Alcohol use disorder; Other ascites; Liver lesion Social History Tobacco Use Types [...] - Weight 63.5 kg (140 lb) 05/22/2023 12:05 PM EST Height 165.1 cm (5' 5 ) 05/22/2023 12:05 PM EST Body Mass Index 23.3 05/22/2023 12:05 PM EST documented in this encounter Miscellaneous Notes * Progress Notes - Farida Ortega, COMMUNITY RELATIONS DIRECTOR - 05/22/2023 12:20 PM EST Subjective Patient ID: Mindy Wade is a 33 y.o. female. Dear Adryan Bearden PA-C HPI : Mindy Wade is a 33yo female with history of cirrhosis seen in follow up for cirrhosis of liver. Etiology Alcohol, hx of hepatitis C. . Pt has history of chronic HCV, diagnosed many years ago, was treated with harvoni in 2018 and achieved SVR per outside notes. 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 She was initially evaluated in liver Transplant clinic, transplant was deferred as her PeTH stay positive.Outside labs 04/2023 : AST 77, ALT 42, Alk phoa 144, T bili 4.7, Scr 0.8, Na 138.hGB11.9, pLTS 72, inr 1.7, meld na 18. Since last visit she has been following Dr. Guajardo. Denies recent admission. Last alcohol few drinks in a week. C.o nausea. Asking for refill on zofran. Decrease appetite. C/o diarrhea. Some times has bright redblood in the tissue. RUQ abdomen. Denies hematemesis, , melena, denies confusion. She is on diuretics.Lasix 20 mg and spirolactone 100 mg She is taking multivitamin, CBD gummies. She denied history of GI bleed, encephalopathy or LVP. She never has LVP. Denies current confusion, forgetfulness, hematemesis,, melena, hematochezia, difficulty breathing, fever, and chills. [...] normal. Assessment/Plan Mindy was seen today for follow-up and ascites. Diagnoses and all orders for this visit: Alcoholic cirrhosis of liver with ascites (CMS/HCC) (Primary) - Comprehensive Metabolic Panel, Plasma; Future - CBC W/O Differential; Future - Prothrombin Time/INR; Future Alcohol use disorder Other ascites Liver lesion Other orders - furosemide (Lasix) 20 MG tablet; Take 1 tablet (20 mg) by mouth 1 (one) time each day. - spironolactone (Aldactone) 50 MG tablet; Take 2 tablets (100 mg) by mouth 1 (one) time each day. - ondansetron ODT (Zofran-ODT) 4 MG disintegrating [...] negative , HIV negative Alcohol Use disorder. Following Dr. Guajardo. Encouraged to follow with Dr. Guajardo. Ascites. Controlled now. Never LVP, but did [...] 16.2 10/2022 . Repeat 9.5 on 04/24/2023 MR abdomen 12/27/2022 : reviewed Most inferior [...] evidence of biliary obstruction. No choledocholithiasis. MRI schedule on 06/2023. # Anxiety : Hydroxyzine 10 mg at night. # Nausea/Vomiting : Zofran as needed. Health maintenance: Immune to hep A, needs Hepatitis B - declined. HCV PCR not detected. Follow up in about 2 months (around 07/22/2023). I spent a total of 30 minutes on the day of the visit. Patient Verification Patient identity has been confirmed using name and date of ? Yes Authorizations and Agreements/Telemedicine Consent sent and consent confirmed? Yes Patient Location: Patient's Home Patient confirms they are physically located in [place]? Yes If the patient is not physically located in [place], the provider has confirmed with [employer] thatthe provider is authorized to provide services in patient's stated location? N/A Provider Location: Provider's Home Audio and video or audio only? Audio and video Labs prior to next appt. TH 2 months. documented in this encounter Plan of Treatment Scheduled Orders Name Type Priority Associated Diagnoses Orde r Schedule Comprehensive Metabolic Panel, Plasma Lab Routine Alcoholic cirrhosis of liver with ascites (CMS/HCC) Expected: 06/12/2023 (Approximate), Expires: 11/19/2024 CBC W/O Differential Lab Routine Alcoholic cirrhosis of liver with ascites (CMS/HCC) Expected: 06/12/2023 (Approximate), Expires: 11/19/2024 Prothrombin Time/INR Lab Routine Alcoholic cirrhosis of liver with ascites (CMS/HCC) Expected: 06/12/2023 (Approximate), Expires: 11/19/2024 documented as of this encounter Visit Diagnoses Diagnosis Alcoholic cirrhosis of liver with ascites (CMS/HCC)- Primary Alcohol use disorder Other ascites Liver lesion Other specified disorders of liver [...] as of this encounter Care Teams Certified Medical Asst Relationship Specialty Start Date End Date Yonatan Graves DO [address] [place] [address] [address] [place] [address] PCP - General 09/24/22 Adryan Bearden PA [address] [place] [address] Referring Physician Gastroenterology 09/24/22 documented as of this encounter
--- OUTSIDE RECORDS SUMMARY | 2024-05-19 10:20 | XMS_ITS | Encounter Summary ---
Author Organization [facility] Address [address] [place] [address] Care Team Providers Care Telegraph And Teletype Operator Name Role Phone Yonatan Graves DO Primary Care Provider Adryan Bearden Unavailable Reason for Referral * Imaging (Routine) - Authorized Specialty Diagnoses / Procedures Referred By Contac t Referred To Contact Radiology Diagnoses Alcoholic cirrhosis of liver with ascites (CMS/HCC) Liver lesion Procedures MR Abdomen w and wo IV Contrast Farida Ortega, INSECT CONTROL AIDE [address] [address] Phone: tel: fax: Referral ID Status Reason Start Date Expiration Date V isits Requested Visits Authorized [id number] Authorized 04/10/2023 10/09/2024 1 2 Reason for Visit * Imaging (Routine) - Authorized Specialty Diagnoses / Procedures Referred By Contac t Referred To Contact Radiology Diagnoses Alcoholic cirrhosis of liver with ascites (CMS/HCC) Liver lesion Procedures MR Abdomen w and wo IV Contrast Farida Ortega, INSECT CONTROL AIDE [address] [place] [address] Phone: tel: fax: Referral ID Status Reason Start Date Expiration Date V isits Requested Visits Authorized [id number] Authorized 04/10/2023 10/09/2024 1 2 Encounter Details Date Type Department Care Team (Latest Contact Info) Description 08/18/2023 12:24 PM EST - 08/18/2023 11:59 PM EST Hospital [place] [place] [address] Alcoholic cirrhosis of liver with [...] Everywhere. * Contrast Imaging Discharge Instructions ([facility]) (Yi) documented in this encounter Medications at Time [...] 30 tablet 2 05/22/2023 4 HYDROcodone-acetami nophen ([place]) 7.5-325 MG tablet Take 1 tablet (7.5 [...] using the following sequences: coronal single shot [id number] fast spin echo, axial T2 weighted sequences [...] 08/18/2023 12:58 PM EST [facility] Personal Assistant ID Maria Elena Arana 08/18/2023 12:58 PM EST [facility] Device ID [id number] 08/18/2023 12:58 PM EST [facility] [...] RESULTS Final Result [facility] [address] [place] [id number] documented in this encounter Visit Diagnoses Diagnosis [...] documented as of this encounter Care Teams Telegraph And Teletype Operator Relationship Specialty Start Date End Date Yonatan Graves DO [facility] [address] [place] [address] PCP - General 09/24/22 Adryan Bearden PA [address] [place] [address] Referring Physician Gastroenterology 09/24/22 documented as of this encounter
--- OUTSIDE RECORDS SUMMARY | 2024-05-19 10:20 | XMS_ITS | Encounter Summary ---
Author Organization [facility] Address [address] [place] [address] Care Team Providers Care Extension Edger Name Role Phone Yonatan Graves DO Primary [...] as of this encounter Care Teams Extension Edger Relationship Specialty Start Date End Date Yonatan Graves DO [address] [facility] [address] [place] [address] PCP - General 09/24/22 Adryan Beardne PA [facility] [place] [address] Referring Physician Gastroenterology 09/24/22 documented as of this encounter
--- OUTSIDE RECORDS SUMMARY | 2024-05-19 10:20 | XMS_ITS | Encounter Summary ---
Author Organization [facility] Address [address] [place] [address] Care Team Providers Care Hot Punch Press Operator Name Role Phone IrineoYonatan kramer Joseph LLANES Primary Care Provider Adryan Bearden Unavailable Encounter Details Date Type Department Care Team (Late st Contact Info) Description 09/01/2023 Telephone [facility] [address] [place] [address] Iqra Hernández RN Social History Tobacco Use [...] EDT Called pt, she is admitted at [facility]. Provider aware * Telephone Encounter - Iqra [...] documented as of this encounter Care Teams Hot Punch Press Operator Relationship Specialty Start Date End Date Yonatan Graves DO [address] [place] [address] [address] [place] [address] PCP - General 09/24/22 Adryan Bearden PA [address] [place] [address] Referring Physician Gastroenterology 09/24/22 documented as of this encounter
--- OUTSIDE RECORDS SUMMARY | 2024-05-19 10:20 | XMS_ITS | Encounter Summary ---
Author Organization [facility] Address [address] [place] [address] Care Team Providers Care Electronics Engineering Technologist Name Role Phone [place] Yonatan Joseph LLANES Primary Care Provider Adryan Bearden Unavailable Reason for Visit * Reason Comments Med Refill Encounter Details Date Type Department Care Team (Late st Contact Info) Description 05/09/2023 Refill [facility] [address] [facility] [address] [place] [address] Farida Ortega D, PHOTOGRAPH MOUNTER [address] [facility] [address] [place] [address] Social History Tobacco Use Types [...] documented as of this encounter Care Teams Electronics Engineering Technologist Relationship Specialty Start Date End Date Yonatan Graves DO [address] [place] [address] [place] [address] PCP - General 09/24/22 Adryan Bearden PA [address] [place] [address] Referring Physician Gastroenterology 09/24/22 documented as of this encounter
--- OUTSIDE RECORDS SUMMARY | 2024-05-19 10:20 | XMS_ITS | Encounter Summary ---
Author Organization [facility] Address [address] [place] [address] Care Team Providers Care Sterile Products Processor Name Role Phone Yonatan Graves DO Primary [...] documented as of this encounter Care Teams Sterile Products Processor Relationship Specialty Start Date End Date Yonatan Graves DO [facility]8 [facility] [address] [place] [address] PCP - General 09/24/22 Adryan Bearden PA [facility]8 [place] [address] Referring Physician Gastroenterology 09/24/22 documented as of this encounter
--- OUTSIDE RECORDS SUMMARY | 2024-05-19 10:20 | XMS_ITS | Encounter Summary ---
Author Organization [facility] Address [address] [place] [address] Care Team Providers Care First Coat Operator Name Role Phone Yonatan Graves DO [...] documented as of this encounter Care Teams First Coat Operator Relationship Specialty Start Date End Date Yonatan Graves DO [address] [facility] [address] [place] [address] PCP - General 09/24/22 Adryan Bearden PA [facility]8 [place] [address] Referring Physician Gastroenterology 09/24/22 documented as of this encounter
--- OUTSIDE RECORDS SUMMARY | 2024-05-19 10:20 | XMS_ITS | Encounter Summary ---
Author Organization [facility] Address [address] [place] [address] Care Team Providers Care Lobster Catcher Name Role Phone Yonatan Graves DO Primary [...] documented as of this encounter Care Teams Lobster Catcher Relationship Specialty Start Date End Date Yonatan Graves DO [address] [facility] [address] [place] [address] PCP - General 09/24/22 Adryan Bearden PA [facility] [place] [address] Referring Physician Gastroenterology 09/24/22 documented as of this encounter
--- OUTSIDE RECORDS SUMMARY | 2024-05-19 10:20 | XMS_ITS | Encounter Summary ---
Author Organization [facility] Address [address] [place] [address] Care Team Providers Care Aircraft Systems Repairer Name Role Phone Yonatan Graves DO [...] as of this encounter Care Teams Aircraft Systems Repairer Relationship Specialty Start Date End Date Yonatan Graves DO [facility] [address] [place] [address] PCP - General 09/24/22 Adryan Bearden PA [facility]8 [place] [address] Referring Physician Gastroenterology 09/24/22 documented as of this encounter
--- OUTSIDE RECORDS SUMMARY | 2024-05-19 10:21 | XMS_ITS | Encounter Summary ---
Author Organization [facility] Address [address] [place] [address] Care Team Providers Care Pants Closer Name Role Phone Yonatan Graves DO Primary Care Provider Adryan Bearden Unavailable Encounter Details Date Type Department Care Team (Late st Contact Info) Description 12/16/2022 [facility]ill [facility] [address] [facility] [address] [place] [address] Tresa iVeira, RN [id number] [address] [id number] Social History Tobacco Use Types Packs/Day Years [...] documented as of this encounter Care Teams Pants Closer Relationship Specialty Start Date End Date Yonatan Graves DO [address] [facility] [address] [place] [address] PCP - General 09/24/22 Adryan Bearden PA [facility] [place] [address] Referring Physician Gastroenterology 09/24/22 documented as of this encounter
--- OUTSIDE RECORDS SUMMARY | 2024-05-19 10:21 | XMS_ITS | Encounter Summary ---
Author Organization [facility] Address [address] [id number] Care Team Providers Care Log Deckman Name Role Phone Star Yonatan Joseph LLANES Primary Care Provider Adryan Bearden Unavailable Encounter Details Date Type Department Care Team (Late st Contact Info) Description 12/27/2022 11:00 AM EDT Office Visit [facility] [address] [facility] [address] [place] [address] Farida Ortega, CLAIM APPROVER [address] [facility] [address] [place] [address] End-stage liver disease (CMS/HCC) (Primary [...] Notes * Progress Notes - Farida Ortega, CLAIM APPROVER - 12/27/2022 11:00 AM EDT Transplant Hepatology [...] 4 weeks, SW next visit and repeat [facility] in 4 weeks. A total of [...] documented as of this encounter Care Teams Log Deckman Relationship Specialty Start Date End Date Yonatan Graves DO [address] [place] [address] [address] [place] [address] PCP - General 09/24/22 Adryan Bearden PA [address] [place] [address] Referring Physician Gastroenterology 09/24/22 documented as of this encounter
--- OUTSIDE RECORDS SUMMARY | 2024-05-19 10:21 | XMS_ITS | Encounter Summary ---
Author Organization [facility] Address [address] [place] [address] Care Team Providers Care Signal Constructor Name Role Phone Yonatan Graves DO Primary [...] on filedocumented in this encounter Care Teams Signal Constructor Relationship Specialty Start Date End Date Yonatan Graves DO [address] [facility] [address] [place] [address] PCP - General 09/24/22 Adryan Bearden PA [address] [place] [address] Referring Physician Gastroenterology 09/24/22 documented as of this encounter
--- OUTSIDE RECORDS SUMMARY | 2024-05-19 10:21 | XMS_ITS | Encounter Summary ---
Author Organization [facility] Address [address] [place] [address] Care Team Providers Care Toe Pounder Name Role Phone Yonatan Graves DO Primary [...] as of this encounter Care Teams Toe Pounder Relationship Specialty Start Date End Date Yonatan Graves DO [address] [facility] [address] [place] [address] PCP - General 09/24/22 Adryan Bearden PA [facility]8 [place] [address] Referring Physician Gastroenterology 09/24/22 documented as of this encounter
--- OUTSIDE RECORDS SUMMARY | 2024-05-19 10:21 | XMS_ITS | Encounter Summary ---
Author Organization [facility] Address [address] [place] [address] Care Team Providers Care Slat Basket Maker Helper Machine Name Role Phone Yonatan Graves DO [...] documented as of this encounter Care Teams Slat Basket Maker Helper Machine Relationship Specialty Start Date End Date Yonatan Graves DO [facility]8 [facility] [address] [place] [address] PCP - General 09/24/22 Adryan Bearden PA [facility]8 [place] [address] Referring Physician Gastroenterology 09/24/22 documented as of this encounter
--- OUTSIDE RECORDS SUMMARY | 2024-05-19 10:21 | XMS_ITS | Encounter Summary ---
Author Organization [facility] Address [address] [place] [address] Care Team Providers Care Manager Air Name Role Phone Yonatan Graves DO Primary Care Provider Adryan Bearden Unavailable Encounter Details Date Type Department Care Team (Late st Contact Info) Description 10/03/[address] [facility] Transplant Center [address] [facility] [address] [place] [id number] [facility] [address] [phone] Social History Tobacco Use Types Packs/Day Years [...] on filedocumented in this encounter Care Teams Manager Air Relationship Specialty Start Date End Date Yonatan Graves DO [facility] [address] [place] [address] PCP - General 09/24/22 Adryan Bearden PA [facility]8 [place] [address] Referring Physician Gastroenterology 09/24/22 documented as of this encounter
--- OUTSIDE RECORDS SUMMARY | 2024-05-19 10:21 | XMS_ITS | Encounter Summary ---
Author Organization [facility] Address [address] [place] [address] Care Team Providers Care Pipe Washer Name Role Phone Yonatan Graves DO Primary Care Provider Adryan Bearden Unavailable Reason for Referral * Imaging (Routine) - Closed Specialty Diagnoses / Procedures Referred By Contac t Referred To Contact Radiology Diagnoses End-stage liver disease (CMS/HCC) Liver lesion 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) Procedures MR Abdomen w and wo IV Contrast Farida Ortega, ASSORTER [address] [address] Phone: tel: fax: Referral ID Status Reason Start Date Expiration Date Visits Re quested Visits Authorized [id number] Closed 12/30/2022 06/30/2024 1 1 Reason for Visit * Imaging (Routine) - Closed Specialty Diagnoses / Procedures Referred By Contac t Referred To Contact Radiology Diagnoses End-stage liver disease (CMS/HCC) Liver lesion 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) Procedures MR Abdomen w and wo IV Contrast Farida Ortega, ASSORTER [address] [facility] [address] [place] [address] Phone: tel: fax: Referral ID Status Reason Start Date Expiration Date Visits Re quested Visits Authorized [id number] Closed 12/30/2022 06/30/2024 1 1 Encounter Details Date Type Department Care Team (Latest Contact Info) Description 04/08/2023 12:56 PM EDT - 04/08/2023 11:59 PM EDT Hospital Encounter [facility] Radiology [address], 1st [place] [address] End-stage liver disease (CMS/HCC); Liver lesion; Ascites [...] Everywhere. * Contrast Imaging Discharge Instructions ([place]) (Namibian) documented in this encounter Medications at Time [...] are consistent with and integrated into the [employer] Liver Diseases [...] using the following sequences: coronal single shot [id number] fast spin echo, axial T2 weighted sequences [...] are consistent with and integrated into the [place] Associationfor the Study of Liver Diseases (AASLD) [...] MD on 04/08/2023 4:08 PM Farida Ortega ASSORTER IMG MRI PROCEDURES Final R esult documented [...] documented as of this encounter Care Teams Pipe Washer Relationship Specialty Start Date End Date Yonatan Graves DO [facility] [address] [place] [address] PCP - General 09/24/22 Adryan Bearden PA [facility]8 [place] [address] Referring Physician Gastroenterology 09/24/22 documented as of this encounter
--- OUTSIDE RECORDS SUMMARY | 2024-05-19 10:21 | XMS_ITS | Encounter Summary ---
Author Organization [facility] Address [address] [place] [address] Care Team Providers Care Purchasing And Claims Supervisor Name Role Phone Yonatan Graves DO Primary Care Provider Adryan Bearden Unavailable Reason for Referral * Consultation (Routine) - Closed Specialty Diagnoses / Procedures Referred By Contac t Referred To Contact Transplant Diagnoses End-stage liver disease (CMS/HCC) Robert Hung MD [address] [address] Phone: tel: fax: [facility]plant [place] [address] [address] Phone: tel: fax: Referral ID Status Reason Start Date Expiration Date V isits Requested Visits Authorized [id number] Closed Specialty Services Required 09/25/2022 03/26/2024 1 1 Reason for Visit * Reason Comments Appointment Scheduling ICE Encounter Details Date Type Department Care Team (Late st Contact Info) Description 09/25/2022 Telephone [facility] Transplant [address] [address] Lani Maynard [facility] [address] [place] [address] Appointment (Scheduling ICE) Social History [...] - left voicemail message. Emailed invitation to [employer] - new patient materials will be attached once activated. Mailed additional required documents. Faxed request to [facility] for additional records and images. documented in this encounter Plan of Treatment Scheduled Referrals Name Type Priority Associated Diagnoses Order Schedule Initial Clinic Evaluation - Transplant Hepatology Outpatient Referral Routine End-stage liver disease (CMS/HCC) 1 Occurrences starting 09/25/2022 until 03/27/2024 documented as of this encounter Results * Alcohol Urine (11/01/2022 11:51 AM EDT) Alcohol Urine Positive Negative 11/01/2022 3:44 PM EDT [facility] Urine Urine specimen obtained by clean catch procedure / Unknown Non-blood Collection / Unknown 11/01/2022 11:51 AM EDT 11/01/2022 1:59 PM EDT Narrative [facility] - 11/01/2022 3:44 PM EDT The correlation between urine and serum ethanol concentration is highly variable. Test performed by Gas Chromatography at the [facility]. This test was developed and its performance characteristics determined by [facility]. It has not been cleared or approved by the FDA.The laboratory is regulated under CLIA as qualified to perform high-complexity testing. This test is used for clinical purposes only. us Robert Hung MD LAB URINE ORDERABLES Final Resul t [facility] [address] [place] [address] * Comprehensive urine drug screening, Qualitative Assay (11/01/2022 11:51 AM EDT) [facility] Comprehensive Urine Drug Screen Result Negative Negative 11/05/2022 5:40 AM EDT [facility]ALTH[facility] Urine Urine specimen obtained by clean catch procedure / Unknown Non-blood Collection / Unknown 11/01/2022 11:51 AM EDT 11/01/2022 1:59 PM EDT Narrative [facility]ARE [facility] - 11/05/2022 5:40 AM EDT Drugs in urine are analyzed by gas chromatography-mass spectrometry. This test was developed and its performance characteristics determined by [facility].It has not been cleared or approved by the FDA.The laboratory is regulated under CLIA as qualified to perform high-complexity testing. This test is used for clinical purposes. Testing is performed at the [facility], [facility]. Drugs detected MAY [...] ORDERABLES Final Resul t Performing Organization Address [facility] de Phone Number [facility] [address] [place] [address] * (ABNORMAL) Hepatitis A Antibody IgG (11/01/2022 7:31 AM EDT) Hepatitis A Antibody IgG Positive(A ) Negative 11/01/2022 8:52 AM EDT [facility] Blood Venous blood specimen / Unknown Venipuncture / Unknown 11/01/2022 7:31 AM EDT 11/01/2022 8:01 AM EDT us Robert Hung MD LAB BLOOD ORDERABLES Final Resul t Performing Organization Address [facility] de Phone Number [facility] [address] [place] [address] * Hepatitis B Surface Antibody (11/01/2022 7:31 [...] ORDERABLES Final Resul t Performing Organization Address [facility] de Phone Number [facility] [address] [place] [address] * Hepatitis B Surface Antigen (11/01/2022 7:31 AM EDT) Hepatitis B Surf Antigen Negative Negative 11/01/2022 8:52 AM EDT [facility] Blood Venous blood specimen / Unknown Venipuncture / Unknown 11/01/2022 7:31 AM EDT 11/01/2022 8:01 AM EDT us Robert Hung MD LAB BLOOD ORDERABLES Final Resul t Performing Organization Address City/[facility]/ZIP Co de Phone Number [facility] [address] [place] [address] * (ABNORMAL) Hepatitis C Antibody (11/01/2022 7:31 AM EDT) Hepatitis C Antibody Positive( A) Negative 11/01/2022 8:44 AM EDT [facility] Comment:This specimen is jeremías ng sent for confirmation by RT-PCR. Blood Venous blood specimen / Unknown Venipuncture / Unknown 11/01/2022 7:31 AM EDT 11/01/2022 8:01 AM EDT Robert Hung MD LAB BLOOD ORDERABLES Final Resul t Performing Organization Address City/[facility]/ZIP Co de Phone Number [facility] [address] [place] [address] * Nicotine Cotinine Metabolite (11/01/2022 7:31 AM EDT) Pathologist [facility] Nicotine, S/P, Quant <5 ng/mL 11/06/2022 1:08 AM EDT [facility]) Cotinine, S/P, Quant <5 ng/mL 11/06/2022 1:08 AM EDT [facility] ([facility]) Blood Venous blood specimen / Unknown Venipuncture [...] developed and its performance characteristics determined by [facility]. It has not been cleared or approved by the US Food and Drug Administration. This test was performed in a CLIA certified laboratory and is intended for clinical purposes. Performed By: [facility] [address] [place] [address] Mill Laborer: Mark Atwood MD, PhD us Robert Hung MD LAB BLOOD ORDERABLES Final Resul t [facility] (BE[facility]) [address] [place] [address] * (ABNORMAL) Protime-INR (11/01/2022 7:31 AM EDT) [...] INR 2.5 to 3.5 Prevention of recurrent MS ? INR 2.5 to 3.5 us Robert Hung MD LAB BLOOD ORDERABLES Final Resul t [facility] [address] [place] [address] * (ABNORMAL) Comprehensive metabolic panel (11/01/2022 7:31 AM EDT) Glucose, Plasma 135(H) 74 - 99 mg/dL 11/01/2022 8:33 AM EDT [facility] BUN, Plasma 6(L) 7 - 21 mg/dL 11/01/2022 8:33 AM EDT [facility] Creatinine, Plasma 0.59(L) 0.60 - 1.10 mg/dL 11/01/2022 8:33 AM EDT [facility] BUN/Creatinine Ratio 10 11/01/2022 8:33 AM EDT [facility] Sodium, Plasma 136 136 - 145 mmol/L 11/01/2022 8:33 AM EDT [facility] Potassium, Plasma 3.1(L) 3.7 - 4.8 mmol/L 11/01/2022 8:33 AM EDT [facility] Chloride, Plasma 99 97 - 107 mmol/L 11/01/2022 8:33 AM EDT [facility] CO2, Plasma 25 22 - 29 mmol/L 11/01/2022 8:33 AM EDT [facility] Anion Gap 12 6 - 16 mmol/L 11/01/2022 8:33 AM EDT [facility] Total Calcium, Plasma 8.4(L) 8.9 - 10.2 mg/dL 11/01/2022 8:33 AM EDT [facility] Total Protein 7.7 6.3 - 7.9 g/dL 11/01/2022 8:33 AM EDT [facility] Albumin, Plasma 3.5 3.5 - 5.2 g/dL 11/01/2022 8:33 AM EDT [facility] AST, Plasma 114(H) 11 - 32 U/L 11/01/2022 8:33 AM EDT [facility] ALT, Plasma 46(H) 8 - 33 U/L 11/01/2022 8:33 AM EDT [facility] Alkaline Phosphatase, Plasma 131(H) 35 - 104 U/L 11/01/2022 8:33 AM EDT [facility] Total Bilirubin, Plasma 4.7(H) 0.2 - 1.1 mg/dL 11/01/2022 8:33 AM EDT [facility] eGFRcr 123.0 mL/min/1.7 3m*2 11/01/2022 8:33 AM EDT [facility] Comment: Reported eGFRcr in mL/min/1.73m2 is based the CKD-EPI 2020 equation that does not use a race coefficient. Effective 01/16/22 our laboratory changed the eGFR calculation to the CKD-EPI 2021 equation from the previously reported eGFR, based on the MDRD equation. ??For comparisons between the two equations, please see laboratory website: ??[email or web address] Blood Venous blood specimen / Unknown Venipuncture / Unknown 11/01/2022 7:31 AM EDT 11/01/2022 8:01 AM EDT us Robert Hung MD LAB BLOOD ORDERABLES Final Resul t [facility] [address] [place] [address] * (ABNORMAL) Hemogram (CBC) (11/01/2022 7:31 AM EDT) WBC Count 6.26 3.70 - 10.30 10*3/uL LAB HEMATOLOGY METHOD 11/01/2022 8:52 AM EDT [facility] RBC Count 3.21(L) 3.90 - 5.20 10*6/uL LAB HEMATOLOGY METHOD 11/01/2022 8:52 AM EDT [facility] HGB 11.8 11.2 - 15.7 g/dL LAB HEMATOLOGY METHOD 11/01/2022 8:52 AM EDT [facility] HCT 35.0 34.0 - 45.0 % LAB HEMATOLOGY METHOD 11/01/2022 8:52 AM EDT [facility] Platelet Count 77(L) 155 - 369 10*3/uL LAB HEMATOLOGY METHOD 11/01/2022 8:52 AM EDT [facility] MCV 109(H) 79 - 98 fL LAB HEMATOLOGY METHOD 11/01/2022 8:52 AM EDT [facility] MCH 36.8(H) 26.0 - 32.0 pg LAB HEMATOLOGY METHOD 11/01/2022 8:52 AM EDT [facility] MCHC 33.7 30.7 - 35.5 g/dL LAB HEMATOLOGY METHOD 11/01/2022 8:52 AM EDT [facility] RDW 13.2 11.5 - 14.5 % LAB HEMATOLOGY METHOD 11/01/2022 8:52 AM EDT [facility] MPV 11.7 8.8 - 12.5 fL LAB HEMATOLOGY METHOD 11/01/2022 8:52 AM EDT [facility] nRBC 0.0 <=0.0 per 100 WBCs LAB HEMATOLOGY METHOD 11/01/2022 8:52 AM EDT [facility] Blood Venous blood specimen / Unknown Venipuncture / Unknown 11/01/2022 7:31 AM EDT 11/01/2022 8:03 AM EDT Robert Hung MD LAB BLOOD ORDERABLES Final Resul t [facility] [address] [place] [address] * (ABNORMAL) Alpha fetoprotein, serum (11/01/2022 7:31 AM EDT) Alpha Fetoprotein, Serum 16.2(H) <10.0 ng/mL 11/01/2022 8:37 AM EDT [facility] Blood Venous blood specimen / [...] ORDERABLES Final Resul t [facility] [address] [place] [address] * ABO/Rh (11/01/2022 7:31 AM EDT) ABO/Rh O Positive 11/01/2022 7:27 AM EDT BLOOD BANK Blood Venous blood specimen / Unknown Venipuncture / Unknown 11/01/2022 7:31 AM EDT 11/01/2022 8:04 AM EDT us Robert Hung MD LAB BLOOD BANK TEST ORDERABLES F inal Result Performing Organization Address City/State/[facility] Co de Phone Number BLOOD BANK [address] documented in this encounter Visit Diagnoses Diagnosis End-stage liver disease (CMS/HCC)- Primary Other sequelae of chronic liver disease documented in this encounter Care Teams Purchasing And Claims Supervisor Relationship Specialty Start Date End Date Yonatan Graves DO [address] [place] [address] [address] [place] [address] PCP - General 09/24/22 Adryan Bearden PA [address] [place] [address] Referring Physician Gastroenterology 09/24/22 documented as of this encounter
--- OUTSIDE RECORDS SUMMARY | 2024-05-19 10:21 | XMS_ITS | Encounter Summary ---
Author Organization [facility] Address [address] [place] [address] Care Team Providers Care Property Claims Manager Name Role Phone Yonatan Graves DO [...] documented as of this encounter Care Teams Property Claims Manager Relationship Specialty Start Date End Date Yonatan Graves DO [address] [facility] [address] [place] [address] PCP - General 09/24/22 Adryan Bearden PA [facility]8 [place] [address] Referring Physician Gastroenterology 09/24/22 documented as of this encounter
--- OUTSIDE RECORDS SUMMARY | 2024-05-19 10:21 | XMS_ITS | Encounter Summary ---
Author Organization [facility] Address [address] [place] [address] Care Team Providers Care University Librarian Name Role Phone HildamikeroeYonatan Joseph LLANES Primary Care Provider Adryan Bearden Unavailable Encounter Details Date Type Department Care Team (Late st Contact Info) Description 04/03/2023 Telephone [facility] [address] [place] [address] Kierra Guajardo MD [address] [facility] [address] [place] [address] Social History Tobacco Use Types [...] optimal time of day to reach caller: [phone] Note: Please do not reply to this message. Follow-up communication and further actions as a result of this message need to be communicated with the patient directly, if the patient is not active onMyChart. If the patient is active on MyChart, they will receive notification of the communication/outcome via [employer]. documented in this encounter Plan of Treatment [...] documented as of this encounter Care Teams University Librarian Relationship Specialty Start Date End Date Yonatan Graves DO [facility]5 [facility] [address] [place] [address] PCP - General 09/24/22 Adryan Bearden PA [address] [place] [address] Referring Physician Gastroenterology 09/24/22 documented as of this encounter
--- OUTSIDE RECORDS SUMMARY | 2024-05-19 10:21 | XMS_ITS | Encounter Summary ---
Author Organization [facility] Address [address] [place] [address] Care Team Providers Care Start Up Specialist Name Role Phone Yonatan Graves DO [...] documented as of this encounter Care Teams Start Up Specialist Relationship Specialty Start Date End Date Yonatan Graves DO [facility] [address] [place] [address] PCP - General 09/24/22 Adryan Bearden PA [facility]8 [place] [address] Referring Physician Gastroenterology 09/24/22 documented as of this encounter
--- OUTSIDE RECORDS SUMMARY | 2024-05-19 10:21 | XMS_ITS | Encounter Summary ---
Author Organization [facility] Address [address] [place] [address] Care Team Providers Care Management Technician Name Role Phone Yonatan Graves DO Primary Care Provider Adryan Bearden Unavailable Encounter Details Date Type Department Care Team (Late st Contact Info) Description 08/22/2022 Orders Only External Location [address] [place] [address] Yonatan Graves DO [address] [facility] [address] [place] [address] Social History Tobacco Use Types Packs/Day Years [...] on filedocumented in this encounter Care Teams Management Technician Relationship Specialty Start Date End Date Yonatan Graves DO [address] [place] [address] [address] [place] [address] PCP - General 09/24/22 Adryan Bearden PA [address] [place], [place] [id number] Referring Physician Gastroenterology 09/24/22 documented as of this encounter
--- OUTSIDE RECORDS SUMMARY | 2024-05-19 10:21 | XMS_ITS | Encounter Summary ---
Author Organization [facility] Address [address] [place] [address] Care Team Providers Care Radio Technician Name Role Phone Jodie Gravesew Joseph LLANES Primary Care Provider Adryan Bearden Unavailable Reason for Referral * Consultation (Routine) - Closed Specialty Diagnoses / Procedures Referred By Roselyn mccollum Referred To Contact Addiction Medicine Diagnoses End-stage liver disease (CMS/HCC) Liver lesion Farida Ortega, SKIP HOIST ENGINEER [address] [address] Phone: tel: fax: Referral ID Status Reason Start Date Expiration Date V isits Requested Visits Authorized [id number] Closed Specialty Services Required 02/19/2023 08/20/2024 1 [...] cirrhosis (CMS/HCC) Farida Ortega APRN [address] [address] Phone: tel: fax: Referral ID Status Reason Start Date Expiration Date V isits Requested Visits Authorized [id number] Closed Specialty Services Required 12/30/2022 06/30/2024 1 1 Encounter Details Date Type Department Care Team (Late st Contact Info) Description 02/19/2023 10:40 AM EDT Consult [facility] Medicine Specialties [address] [place] [address] Farida Ortega, SKIP HOIST ENGINEER [address] [place] [address] End-stage liver disease (CMS/HCC) (Primary [...] she skips a day. She agreesto see fitness specialist. She said she also need help [...] documented as of this encounter Care Teams Radio Technician Relationship Specialty Start Date End Date Yonatan Garves DO [address] [place] [address] [address] [place] [address] PCP - General 09/24/22 Adryan Bearden PA [address] [place] [address] Referring Physician Gastroenterology 09/24/22 documented as of this encounter
--- OUTSIDE RECORDS SUMMARY | 2024-05-19 10:21 | XMS_ITS | Encounter Summary ---
Author Organization [facility] Address [address] [place] [address] Care Team Providers Care Mop Handle Assembler Name Role Phone Yonatan Graves DO [...] documented as of this encounter Care Teams Mop Handle Assembler Relationship Specialty Start Date End Date Yonatan Graves DO [facility] [address] [place] [address] PCP - General 09/24/22 Adryan Bearden PA [facility] [place] [address] Referring Physician Gastroenterology 09/24/22 documented as of this encounter
--- OUTSIDE RECORDS SUMMARY | 2024-05-19 10:21 | XMS_ITS | Encounter Summary ---
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) Procedures MR Abdomen w and wo IV Contrast Rashard Landin MD [address] [address] Phone: tel: fax: Referral ID Status Reason Start Date Expiration Date Visits Re quested Visits Authorized [id number] Closed 11/05/2022 05/06/2024 1 1 Reason for Visit * Imaging (Routine) - Closed Specialty Diagnoses / Procedures Referred By Contphyllis t Referred To Contact Radiology Diagnoses End-stage liver disease (CMS/HCC) 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 * Contrast Imaging Discharge Instructions ([place]) (Albanian) documented in this encounter Medications at Time [...] are consistent with and integrated into the [place] Association for the Study of Liver Diseases [...] aggressive marrow signal abnormalities.. Procedure Note Johnny Ramirez MD - 12/27/2022 CLINICAL INDICATION: Hepatocellular carcinoma screening TECHNIQUE: MR imaging of the abdomen was performed with and without intravenouscontrast material using the following sequences: coronal single shot [id number] fast spin echo, axial T2 weighted sequences [...] are consistent with and integrated into the [place] Associationfor the Study of Liver Diseases (AASLD) [...] documented as of this encounter Care Teams Heating Mechanic Relationship Specialty Start Date End Date Yonatan Graves DO [address] [place] [address] [place] [address] PCP - General 09/24/22 Adryan Bearden PA [address] [place], [place] [id number] Referring Physician Gastroenterology 09/24/22 documented as of this encounter
--- OUTSIDE RECORDS SUMMARY | 2024-05-19 10:21 | XMS_ITS | Encounter Summary ---
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) Rashard Landin MD [address] [facility] [address] [place] [address] Phone: tel: fax: [facility] [address] [facility] [address] [place] [phone] Phone: tel: fax: Referral ID Status Reason Start Date Expiration Date V isits Requested Visits Authorized [id number] Closed Specialty Services Required 11/05/2022 05/06/2024 1 1 Encounter Details Date Type Department Care Team (Late st Contact Info) Description 12/27/2022 12:00 PM EDT Social Work [facility] [address] [facility] [address] [place] [phone] Brooke Tam [facility] [address] [phone] End-stage liver disease (CMS/HCC); Ascites due to [...] Notes * Clinician Note - Brooke Tam, JAVA SCALA DEVELOPER - 12/27/2022 12:00 PM EDT Identifying Information Name: Tatiana Wade : 1990 Assessment date: 12/27/2022 Transplant type: Liver Transplant Referral - 09/24/2022 People present at assessment: patient and and , Darien, Health Education Teacher: Tresa Vieira RN Tatiana Wade is a 32 y.o. 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 She is being evaluated for a liver transplant. Primary language: Uzbek Yarsanism/spirituality: Yazidism Do you have any taoist, ethical or personal objections to accepting blood products, surgery and/or transplant? No Citizenship Where were you born? [place] Family Background and Supportive Relationships Parental information: Kee Llanes (dad) - in [facility] - good relationship with him; mom, Art Hernández, in [place] - better relationship with dad. Sibling information: 2 brother, 2 sister; 2 in [facility] and 2 in [place]; good relationship with all Children: 3, 2 boys (12 and 7), 1 daughter, 11 Marital/relationship status: , Darien Wade, Household composition: HH5, Support / Caregiver Plans Who will be your primary caregiver? 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 She has also had offers of support from family in [facility]. would be primary caregiver, however, anticipate additional family to step in. Advance Directives Do you have an advance directive? Not Received Do you have a DPOA for healthcare or finances? no A living will? no Who is the proxy? Home Environment Living situation: Private Home Rent or Own? Renting now, want to build, not started yet. Utilities: water source: [facility] water , Electricity: yes, Type of Heat: electric Number of steps to enter home: 8 steps in garage; Are bed and bath are on the same level? yes, 2 steps, but can avoid steps if needed Local Housing Is local housing required? No, lives in [place], [place] 32 miles away, about an hour. Insurance benefit for local housing? Education / Employment / Financial Situation What is your highest level of education? Some college Are you able to read and write? 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 Patient reports her poleyard supervisor is still calling her for work, even though she is off on leave while sick. Disability Are you on any form of disability? Short term disability thru work Do you have short term or parts counterman disability available thru work? Have short term and parts counterman disability - gets 1/3 of her check [...] Subscriber Name Rel Member # Group # [facility] MEDICAID - [facility] ME* TATIANA MARTINEZ Self [id number] [facility] [address] Anticipate medical card to ; hope to [...] dad had fatty liver; patient says the [place] said it was AIH When did you [...] problems? no Do you have a valid city route driver???s license? yes Impression Low Risk -1;Moderate [...] impacted their financial situation. Patient currently with [facility] Medicaid, but believes she may lose that [...] documented as of this encounter Care Teams Battery Recharger Relationship Specialty Start Date End Date Yonatan Graves DO [address] [place] [address] [address] [place] [address] PCP - General 09/24/22 Adryan Bearden PA [address] [place] [address] Referring Physician Gastroenterology 09/24/22 documented as of this encounter
--- OUTSIDE RECORDS SUMMARY | 2024-05-19 10:21 | XMS_ITS | Encounter Summary ---
Author Organization [facility] Address [address] [place] [address] Care Team Providers Care Convex Grinder Operator Name Role Phone Star Yonatan Joseph LLANES Primary Care Provider Adryan Bearden Unavailable Reason for Referral * Genetic Testing (Routine) - Closed Specialty Diagnoses / Procedures Referred By Roselyn mccollum Referred To Contact Lab Diagnoses End-stage liver disease (CMS/HCC) Procedures IgG Rashard Landin MD [address] [facility] [address] [place] [address] Phone: tel: fax: Referral ID Status Reason Start Date Expiration Date Visits Re quested Visits Authorized [id number] Closed 11/02/2022 05/03/2024 1 1 Reason for Visit * Consultation (Routine) - Closed Specialty Diagnoses / Procedures Referred By Roselyn mccollum Referred To Contact Transplant Diagnoses End-stage liver disease (CMS/HCC) Robert Hung MD [address] [address] Phone: tel: fax: [facility] [address] [address] Phone: tel: fax: Referral ID Status Reason Start Date Expiration Date V isits Requested Visits Authorized [id number] Closed Specialty Services Required 09/25/2022 03/26/2024 1 1 Encounter Details Date Type Department Care Team (Late st Contact Info) Description 11/01/2022 9:00 AM EDT Office Visit [facility] [address] [place] [address] Rashard Landin MD [address] [place] [address] End-stage liver disease (CMS/HCC) (Primary Dx); Encounter for pre-transplant evaluation for liver transplant; 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); Alcohol use; Abnormal LFTs Social History Tobacco Use Types Packs/Day Years [...] Sign Reading Time Taken Comments Blood Pressure 115/75 11/01/2022 7:32 AM EDT Pulse 103 11/01/2022 7:32 AM EDT Temperature 36.9 ??C (98.5 ??F) 11/01/2022 7:32 AM ED T Respiratory Rate - - Oxygen Saturation 96% 11/01/2022 7:32 AM EDT Inhaled Oxygen Concentration - - Weight 66.3 kg (146 lb 2.6 oz) 11/01/2022 7:32 A M EDT Height 165.1 cm (5' 5 ) 11/01/2022 7:32 AM EDT Body Mass Index 24.32 11/01/2022 7:32 AM EDT documented in this encounter Miscellaneous Notes * Progress Notes - Rashard Landin MD - 11/01/2022 9:00 AM EDT Subjective Patient ID: Mindy Wade is a 32 y.o. female. Dear Adryan Bearden PA-C Thank you for referring this patient to [facility]. The reason for consultation was ESLD. HPI I had the pleasure of seeing Mindy Wade today at our multidisciplinary transplant clinic forpossible liver transplant evaluation. she is a pleasant 32yo female with history of cirrhosis here for initial consultation. Pt has history of chronic HCV, diagnosed many years ago, was treated with harvoni in 2018 and achieved SVR per outside notes. 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 She was doing okay until 3 month ago when she started to tired and nauseous. Subsequently she developed jaundice, thus she sought medical advice. She also does report abdominal distension that got better after starting small dose diuretics. She denied history of GI bleed, encephalopathy or LVP. She continues to drink alcohol about 4-5 drinks a week mainly wine. She knows that she is not supposed to drink any alcohol especially with recent worsening of liver function, cirrhosis and ascites. She has seen local general surgery for possible cholecystectomy, but her surgeon advised she may need a liver transplant thus was referred here. She admits to unhealthy diet with lots of fried and greasy food which cause worsening RUQ pain. Shenever had a liver biopsy, was told she may have AIH because of positive ASMA and IgG as below. Maincomplaint is RUQ pain especially with fatty/greasy food. No fever or chills. Denies current confusion, forgetfulness, hematemesis, coffee ground emesis, melena, hematochezia, abdominal distention, difficulty breathing, fever, and chills. Outside records [...] Ex-smoker quit 04/2022. Accompanied by her today. Review of Systems 14 point ROS reviewed and negative except as in HPI Objective Visit Vitals BP 115/75 Pulse 103 Temp 36.9 ??C (98.5 ??F) Ht 1.651 m (5' 5 ) Wt 66.3 kg (146 lb 2.6 oz) SpO2 96% BMI 24.32 kg/m?? Smoking Status Former BSA 1.74 m?? Physical Exam Constitutional: General: She is [...] and Affect: Mood normal. Behavior: Behavior normal. MELD-Na score: 19 at 11/01/2022 7:31 AM MELD score: 18 at 11/01/2022 7:31 AM Calculated from: Serum Creatinine: 0.59 mg/dL (Using min of 1 mg/dL) at 11/01/2022 7:31 AM Serum Sodium: 136 mmol/L at 11/01/2022 7:31 AM Total Bilirubin: 4.7 mg/dL at 11/01/2022 7:31 AM INR(ratio): 1.7 at 11/01/2022 7:31 AM Age: 32 years Assessment/Plan Diagnoses and all orders for this visit: End-stage liver disease (CMS/HCC) (Primary) - Phosphatidylethanol (PEth), Whole Blood, Quant; Future - Initial Clinic Evaluation - Transplant Hepatology Encounter for pre-transplant evaluation for liver transplant 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) Alcohol use Abnormal LFTs Other orders - potassium chloride CR (K-Tab) 20 MEQ ER tablet; Take 1 tablet (20 mEq) by mouth 1 (one) time eachday for 5 days. Do not crush, chew, or split. 32 year-old white female with alcohol related liver disease, presumably decompensated with ascites here for initial consultation regarding liver transplant. Decompensated cirrhosis secondary to HCV and alcohol use History of HCV, treated in 2018 MELD-Na 19 Active alcohol use, urine alcohol is positive. States she drinks 4-5 drinks per week. I counseled the patient and family about [...] in 4 weeks. Will have SW evaluate pt next visit. Avoid NSAIds, can use tylenol up to 2000mg/day as needed. Her case will be discussed in our weekly transplant committee Abnormal LFTs with AST>ALT, elevated MCV, most likely secondary to active alcohol use Had positive ASMA and IgG from outside Repeat AIH workup with next visit. If Lfts don't improve with alcohol cessation, we may consider liver biopsy to r/o AI. Pt is in agreement with plan ??cholecystitis Advised to follow with local surgeon and we may consider 2nd opinion with general surgery. She did have gallstones on outside imaging. I advised that alcohol cessation and avoid greasy/fatty food will likely help with her symptoms. Report to ER if fever, worsening abdominal pain, worsening jaundice. Ascites. Controlled now. Never LVP, but did report abdominal swelling before starting diuretics. Prior imaging showed ascites. On Lasix 20mg daily & Aldactone 50mg daily. Continue current dose, can take extra aldactone as needed for swelling. Continue current regimen. Enforced 2 gram sodium diet. Hypokalemia 3.1 Prescribed 5 days of KCL, follow up with PCP Repeat labs in a week Esophageal varices surveillance: No prior GIB. EGD 10/2022: no EV or GV. Mild to moderate PHG Educated about signs and symptoms of variceal bleed, advised to report to ER should they occur HCC surveillance: CTAP w/o 09/12: cirrhosis and large ascites RUQ US 10/13: no mention of liver lesions AFP is 16.2 probably secondary to current alcohol related hepatitis, however will obtain MRI with MRCP Health maintenance: Immune to hep A, will need hep B vaccine ( offer next visit) Follow up HCV PCR Transplant status: defer eval, reassess in 4 weeks, add SW next visit and repeat PET RTC in 4 weeks. A total of 81 minutes was spent during this visit for [...] as of this encounter Results * (ABNORMAL) IgG (12/27/2022 9:52 AM EDT) IGG 2,119(H) 720 - 1,589 mg/dL 12/27/2022 11:10 AM EDT [facility] Blood Venous blood specimen / Unknown Venipuncture / Unknown 12/27/2022 9:52 AM EDT 12/27/2022 10:25 AM EDT us Rashard Landin MD LAB BLOOD ORDERABLES Final Resu lt [facility] [address] [place] [address] * Anti-smooth muscle antibody, IgG (12/27/2022 9:52 AM EDT) Smooth Muscle Ab, IgG Titer <1:20 <1:20 12/29/2022 3:23 AM EDT [facility] ([employer]) Blood Venous blood specimen / Unknown Venipuncture / Unknown 12/27/2022 9:52 AM EDT 12/27/2022 10:25 AM EDT Narrative [facility] ([employer]) - 12/29/2022 3:23 AM EDT INTERPRETIVE INFORMATION: ??Smooth Muscle Ab, IgG Titer ??Less than 1:20 ........ Negative - No antibody detected. ??1:20 - 1:80 ??.......... Weak Positive - Suggest repeat ?in two to three weeks with fresh ?specimen. ??1:160 or greater ...... Positive - Suggestive of ?autoimmune hepatitis or chronic ?active hepatitis. Performed By: [facility] [address] [place] [address] Cabinet Worker: Mark Atwood MD, PhD us Rashard Landin MD LAB BLOOD ORDERABLES Final Resu lt Performing Organization Address [facility]/State/ZIP Co de Phone Number [facility] ([employer]) [address] [place] [address] * Phosphatidylethanol (PEth), Whole Blood, Quant (11/01/2022 7:31 AM EDT) PEth 16:0/18:2 (PLPEth) 1162 ng/mL 11/04/2022 1:20 AM EDT [facility] ([employer]) PEth 16:0/18:1 (POPEth) 629 ng/mL 11/04/2022 1:20 AM EDT [facility] ([employer]) Blood Venous blood specimen / Unknown Venipuncture / Unknown 11/01/2022 7:31 AM EDT 11/01/2022 7:56 AM EDT Narrative [facility] ([employer]) - 11/04/2022 1:20 AM EDT INTERPRETIVE INFORMATION:Phosphatidylethanol (PEth), Whole Blood Phosphatidylethanol (PEth) homologues Result Interpretation PEth 16:0/18:1 (POPEth) ? Less than 10 ng/mL............Not detected Less than 20 ng/mL............Abstinence or light alcohol ?consumption 20 - 200 ng/mL................Moderate alcohol consumption Greater than 200 ng/mL........Heavy alcohol consumption or ?chronic alcohol use PEth 16:0/18:2 (PLPEth).......Reference ranges are not well ?established. (Reference: Joycelyn Weller and Claude Ball 2018 J. Forensic Sci) Phosphatidylethanol (PEth) is a group of phospholipids [...] developed and its performance characteristics determined by [facility]. It has not been cleared or approved by the U.S. Food and Drug Administration. This test was performed in a CLIA-certified laboratory and is intended for clinical purposes. Performed By: [facility] [address] [place] [address] Cabinet Worker: Mark Atwood MD, PhD Rashard Landin MD LAB REF LAB BLOOD AND FLUID ORD Final Result [facility] [place] [place] [address] documented in this encounter Visit Diagnoses Diagnosis End-stage liver disease (CMS/HCC)- Primary Other sequelae of chronic liver disease Encounter for pre-transplant evaluation for liver transplant 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) Alcohol use Other problems related to lifestyle Abnormal LFTs documented in this encounter Additional Health Concerns Assessment Noted Time PHQ-9 Depression Total Score: 13 023 7:33 AM EDT A fall risk assessment has been complete d for the patient 11/01/2022 7:33 AM EDT documented as of this encounter Care Teams Convex Grinder Operator Relationship Specialty Start Date End Date Yonatan Graves DO [facility] [address] [place] [address] PCP - General 09/24/22 Adryan Bearden PA [address] [place] [address] Referring Physician Gastroenterology 09/24/22 documented as of this encounter
--- OUTSIDE RECORDS SUMMARY | 2024-05-19 10:21 | XMS_ITS ---
Author Organization [facility] Address [address] [place] [address] Care Team Providers Care Tablet Repair Name Role Phone Yonatan Graves DO Primary Care Provider Adryan Bearden Unavailable Transplant Episode Liver Candidate [facility] ([place], [place]) - [facility] Referred on 09/24/2022 Marked as Ineligible on 12/30/2022 Reason: Substance Abuse Liver CoordinatorTresa Vieira RN Phone: N/A Fax: N/A Email: N/A Scores Score Value Updated Expires Exceptions/[place] sons CPRA Not available UNOS MELD Not available MELD (Calc) 21 10/07/2023 [place] Organ Diagnosis Organ Primary 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 Care Team Name Role Phone Fax Email Tresa Vieira RN Liver Coordinator N/A N/A N/A NANCY Guthrie Referring Physician N/A N/A N/A Mary Redd Oil Heater Operator N/A N/A N/A Robert Hung MD Surgeon N/A N/A N/A Yonatan Graves DO Primary Care Provider N/A N/A N/A Events Pre-Transplant Referred: 09/24/2022 Committee: 12/30/2022
--- OUTSIDE RECORDS SUMMARY | 2024-05-19 10:21 | XMS_ITS | Encounter Summary ---
Author Organization [facility] Address [address] [place] [address] Care Team Providers Care Front Maker Lockstitch Name Role Phone HildamikeroeYonatan Joseph LLANES Primary Care Provider Adryan Bearden Unavailable Reason for Visit * Reason Comments Appointment Confirmation and rem inders Encounter Details Date Type Department Care Team (Late st Contact Info) Description 10/30/2022 Telephone [facility] [address] [phone] Lani Maynard [facility] [address] [place] [phone] Appointment (Confirmation and reminders) Social History Tobacco [...] unable to attend/ needs to reschedule. Called [facility] - requested US Liver images dated 10/11/2022 with report; requested EGD report dated 10/24/2022. documented in this encounter Plan of Treatment Not on file documented as of this encounter Visit Diagnoses Not on filedocumented in this encounter Care Teams Front Maker Lockstitch Relationship Specialty Start Date End Date Yonatan Graves DO [address] [place] [address] [address] [place] [address] PCP - General 09/24/22 Adryan Bearden PA [address] [place] [address] Referring Physician Gastroenterology 09/24/22 documented as of this encounter
--- OUTSIDE RECORDS SUMMARY | 2024-05-19 10:21 | XMS_ITS | Encounter Summary ---
Author Organization [facility] Address [address] [place] [address] Care Team Providers Care Slitter Helper Name Role Phone Yonatan Graves DO Primary Care Provider Adryan Bearden Unavailable Encounter Details Date Type Department Care Team (Late st Contact Info) Description 10/11/2022 Orders Only External Location [address] [place] [address] Provider, External Social History Tobacco Use Types [...] on filedocumented in this encounter Care Teams Slitter Helper Relationship Specialty Start Date End Date Yonatan Graves DO [facility] [address] [place] [address] PCP - General 09/24/22 Adryan Bearden PA [address] [place] [address] Referring Physician Gastroenterology 09/24/22 documented as of this encounter
--- OUTSIDE RECORDS SUMMARY | 2024-05-19 10:21 | XMS_ITS | Encounter Summary ---
Author Organization [facility] Address [address] [place] [address] Care Team Providers Care Email Marketing Intern Name Role Phone Yonatan Graves DO [...] documented as of this encounter Care Teams Email Marketing Intern Relationship Specialty Start Date End Date Yonatan Graves DO [facility] [address] [place] [address] PCP - General 09/24/22 Adryan Bearden PA [facility]8 [place] [address] Referring Physician Gastroenterology 09/24/22 documented as of this encounter
--- OUTSIDE RECORDS SUMMARY | 2024-05-19 10:21 | XMS_ITS | Encounter Summary ---
Author Organization [facility] Address [address] [place] [address] Care Team Providers Care Power Shovel Engineer Name Role Phone Star Yonatan Joseph LLANES Primary Care Provider Adryan Bearden Unavailable Encounter Details Date Type Department Care Team (Late st Contact Info) Description 02/25/2023 Telephone [place] [facility] [address] [place] [address] Diana Ball CNA Social History Tobacco Use [...] documented as of this encounter Care Teams Power Shovel Engineer Relationship Specialty Start Date End Date Yonatan Graves DO [address] [place] [address] [address] [place] [address] PCP - General 09/24/22 Adryan Bearden PA [address] [place], [place] [id number] Referring Physician Gastroenterology 09/24/22 documented as of this encounter
--- OUTSIDE RECORDS SUMMARY | 2024-05-19 10:21 | XMS_ITS | Encounter Summary ---
Author Organization [facility] Address [address] [place] [address] Care Team Providers Care Cylinder Block Mechanic Name Role Phone Yonatan Graves DO [...] documented as of this encounter Care Teams Cylinder Block Mechanic Relationship Specialty Start Date End Date Yonatan Graves DO [facility] [address] [place] [address] PCP - General 09/24/22 Adryan Bearden PA [facility]8 [place] [address] Referring Physician Gastroenterology 09/24/22 documented as of this encounter
--- OUTSIDE RECORDS SUMMARY | 2024-05-19 10:21 | XMS_ITS | Encounter Summary ---
Author Organization [facility] Address [address] [place] [address] Care Team Providers Care Cloth Spreader Name Role Phone Unavailable Primary Care Provider Unavailabl e Encounter Details Date Type Department Care Team ([facility] st Contact Info) Description 09/29/2015 [facility] Vitals Encounter [facility] OUTPATIENT CONVERSIONS [address] [place] [address] ProviderPeter MD [facility] [place] [phone] Social History Tobacco Use Types Packs/Day Years [...]
--- OUTSIDE RECORDS SUMMARY | 2024-05-19 10:21 | XMS_ITS | Encounter Summary ---
Author Organization [facility] Address [address] [place] [id number] Care Team Providers Care Wind Turbine Blade Repair Technician Name Role Phone HildamikeroeYonatan Joseph LLANES Primary Care Provider Adryan Bearden Unavailable Reason for Visit * Reason Comments New Patient End-Stage Liver Disease * Consultation (Routine) - Closed Specialty Diagnoses / Procedures Referred By Roselyn t Referred To Contact Addiction Medicine Diagnoses End-stage liver disease (CMS/HCC) Liver lesion Farida Ortega, [employer] [address] [place] [address] Phone: tel: fax: Referral ID Status Reason Start Date Expiration Date V isits Requested Visits Authorized [id number] Closed Specialty Services Required 02/19/2023 08/20/2024 1 1 Encounter Details Date Type Department Care Team (Late st Contact Info) Description 04/03/2023 1:00 PM EDT Consult [facility] [facility] [address] [place] [address] Kierra Guajardo MD [address] [facility] [address] [place] [address] Alcohol use (Primary Dx); End-stage [...] documented as of this encounter Care Teams Wind Turbine Blade Repair Technician Relationship Specialty Start Date End Date Yonatan Graves DO [address] [facility] [address] [place] [address] PCP - General 09/24/22 Adryan Bearden PA [facility]8 [place] [address] Referring Physician Gastroenterology 09/24/22 documented as of this encounter
--- OUTSIDE RECORDS SUMMARY | 2024-05-19 10:21 | XMS_ITS | Encounter Summary ---
Author Organization [facility] Address [address] [place] [address] Care Team Providers Care Can Sealer Name Role Phone Yonatan Graves DO Primary Care Provider Adryan Bearden Unavailable Reason for Referral * Transplant (Routine) - Closed Specialty Diagnoses / Procedures Referred By Contac t Referred To Contact Transplant Diagnoses End-stage liver disease (CMS/HCC) Adryan Bearden PA [address] [place] [address] Phone: tel: fax: [facility] Transplant [facility] [address] [address] Phone: tel: fax: Referral ID Status Reason Start Date Expiration Date V isits Requested Visits Authorized [id number] Closed Specialty Services Required 09/24/2022 03/25/2024 999 999 Reason for Visit * Reason Comments Referral - Liver Txp Encounter Details Date Type Department Care Team (Late st Contact Info) Description 09/24/2022 Telephone [facility] Transplant Center [address] [place] [address] Lani Maynard [facility] [address] [place] [address] Referral - Liver Txp Social [...] disease documented in this encounter Care Teams Can Sealer Relationship Specialty Start Date End Date Yonatan Graves DO [address] [place] [address] [address] [place] [address] PCP - General 09/24/22 Adryan Bearden PA [address] [place] [address] Referring Physician Gastroenterology 09/24/22 documented as of this encounter
--- OUTSIDE RECORDS SUMMARY | 2024-05-19 10:21 | XMS_ITS | Encounter Summary ---
Author Organization [facility] Address [address] [place] [address] Care Team Providers Care Mold Mechanic Name Role Phone Unavailable Primary Care Provider Unavailabl e Encounter Details Date Type Department Care Team ([facility] st Contact Info) Description 11/09/2015 [facility] Vitals Encounter [facility] OUTPATIENT CONVERSIONS [address] [place] [address] ProviderPeter MD [facility] [place] [phone] Social History Tobacco Use Types Packs/Day Years [...]
--- NOTE | 2024-05-19 10:30 | EXP.UTC ---
Discharge Plan Disposition Patient Disposition: Home, Self-Care Condition: Good Prescriptions Prescriptions: New fluconazole 150 mg tablet 150 mg PO Q3D Qty: 2 0RF Rx Instructions: Take one now and may repeat in 72 hours No Action gabapentin 800 mg tablet 800 mg PO DAILY furosemide 20 mg tablet 20 mg PO DAILY hydroxyzine HCl 10 mg tablet 10 mg PO HS spironolactone 50 mg tablet 150 mg PO BID Patient Comments: TAKE 3 TABLETS BY MOUTH TWICE DAILY Referrals Follow up/Referrals: Yonatan Graves [Primary Care Provider] - See instructions Activity Restrictions/Add. Instructions Additional Instructions/Restrictions: Over the counter Tylenol if you need something for pain lidocaine patches may help with pain Follow up with your Family Doctor if pain persists Straight to ER if any life threatening symptom Clinical Impressions Clinical Impression: Contusion of rib Instructions Patient Instructions: Acetaminophen, DI for Rib Contusion Print Language Print Language: Turkish Discharge ED Provider: Marylu Kuo [facility] HPI General Stated complaint: Pain in L rib area Mode of Arrival: Ambulatory Source of Information: Patient Limitations: No Limitations Time Seen by Provider: 05/19/24 10:30 Description of Symptoms (Recalled from Triage Doc. by RN): PATIENT C/O LEFT RIB PAIN SINCE LAST FRIDAY. SHE STATES HEENT Symptoms (Recalled from RN notes): No Resp Symptoms (Recalled from RN notes): No Skin Symptoms (Recalled from RN notes): No MS Symptoms (Recalled from RN notes): Yes Functional Status (Recalled from RN notes): WNL History of Present Illness Provider Complaint: Patient states that her daughter give her a hug really tight and she felt a pop in her left lower rib area States since then she has been having pain in that area that is worse with movement not sure if she may have broken a rib or something so today she came in to get it checked Denies fever Denies SOA Related Data Home Medications ?Medication ?Instructions ?Recorded ?Confirmed furosemide 20 mg tablet 20 mg PO DAILY 05/19/24 05/19/24 gabapentin 800 mg tablet 800 mg PO DAILY 05/19/24 05/19/24 hydroxyzine HCl 10 mg tablet 10 mg PO HS 05/19/24 05/19/24 spironolactone 50 mg tablet 150 mg PO BID 05/19/24 05/19/24 Previous Rx's ?Medication ?Instructions ?Recorded fluconazole 150 mg tablet 150 mg PO Q3D 2 doses #2 tabs 05/19/24 Allergies Allergy/AdvReac Type Severity Reaction Status Date / Time amoxicillin (AMOXICILLIN) Allergy Unknown Verified 11/12/23 08:38 morphine (MORPHINE) Allergy Unknown Verified 11/12/23 08:38 Penicillins (PENICILLINS) Allergy Unknown Verified 11/12/23 08:38 Worker's Comp Is this a Worker's Comp case?: No [facility] Disclaimer: The information contained in this section may have been updated after the patient was seen, as this information can be updated by other users. 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 Kidney stone Anxiety Seizure disorder Urinary tract infection Kidney stone Asthma Surgical History History of tonsillectomy History of appendectomy Social History Smoking Status: Former smoker tobacco type: cigarettes packs per day: 1 alcohol intake: never current occupational status: other ROS Obtained: Yes All systems reviewed & no additional complaints except as documented and Yes Systems reviewed as appropriate & no additional complaints except as documented Constitutional Constitutional: Reports system reviewed and no additional complaints, except as documented, Reports as per HPI, Denies body ache, Denies chills and Denies fever(s) ENT Ears, Nose, Mouth, and Throat: Reports system reviewed and no additional complaints, except as documented and Reports as per HPI Cardiovascular Cardiovascular: Reports system reviewed and no additional complaints, except as documented and Reports as per HPI Respiratory Respiratory: Reports system reviewed and no additional complaints, except as documented and Reports as per HPI Gastrointestinal Gastrointestingal: Reports system reviewed and no additional complaints, except as documented and as per HPI Musculoskeletal Musculoskeletal: Reports system reviewed and no additional complaints, except as documented, Reports as per HPI and Reports other Comments: Pain in left lower ribs after feeling a pop on Friday Physical Exam General General appearance: alert and in no apparent distress ENT ENT exam: Present mucous membranes moist Chest Chest inspection: Present tenderness Expanded Chest Exam Breast: left: tenderness Female Torso: 1. reports tenderness in left lower ribs with palpation, no bruising no swelling no discoloration noted Respiratory Respiratory exam: Present normal lung sounds bilaterally; Absent respiratory distress or wheezes Cardiovascular Cardiovascular exam: Present regular rate, normal rhythm and normal heart sounds Neurological Exam Neurological exam: Present alert, oriented X3 and normal gait Medical Decision Making Medical Records Screening: Per USPSTF and CDC recommendations, given the prevalence of disease in our region, it is our hospital?s policy to screen for HIV and viral Hepatitis for all patients aged 18 and over and those with ongoing risk factors. Ben Inquiry Pt receiving controlled substance: No Ben was queried for this patient: No Vital Signs: 05/19/24 10:20 Temperature 98.4 F Temperature Source Oral Pulse Rate [Left Brachial] 79 Respiratory Rate 18 Blood Pressure [Left Arm] 108/65 L Blood Pressure Mean [Left Arm] 79 Blood Pressure Source [Left Arm] Automatic Cuff Blood Pressure Position [Left Arm] Sitting 02 Sat by Pulse Oximetry 99 Orders (Tests/Meds): ORDERS Category Date Time Status XR ribs LT min 3V w CXR1V Stat Exams 05/19/24 10:14 Taken Radiology Data #1: Image(s): Chest (with left ribs ) Image Reviewed: Yes I have reviewed radiologist's interpretation IMPRESSION: No acute cardiopulmonary process or displaced rib fracture.
[2024-05-19 12:19] VITALS: BP 108/65; PULSE 79; RESP 18; TEMP 36.9; O2SAT 99
== END 2024-05-19 12:21 | disposition home or self-care (01) ==
PROVIDERS: Emergency Provider Nurse Practitioner; PCP Internal Medicine
DX: S20.212A Contusion of left front wall of thorax, initial encounter (principal); R07.81 Pleurodynia
CPT/HCPCS: 71101; 99212; G0381

== ENCOUNTER 2024-10-18 08:52 | Outpatient (CLI) | payer OTHER, SELFPAY ==
--- OUTSIDE RECORDS SUMMARY | 2024-10-19 13:24 | XMS_ITS | Data Portability ---
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 Etiology not clear: She has a history of chronic hepatitis C, which was treated in 2019 with Harvoni and with report that SVR was achieved. She reports minimal alcohol consumption. She also has a family history of cirrhosis in her father and multiple paternal family members. 1) Cirrhosis: Will send workup to evaluate for viral, autoimmune, and hereditary causes of liver disease. Will check HCV viral load to confirm SVR. She will f/u and liver biopsy may be considered pending her lab results and management of her ascites. -Will order US abdomen with doppler to evaluate for possible Budd-Chiari. She does have a history of DVT and PE, no currently on anticoagulation. -Ascites: Start Lasix 20 mg p.o. daily and Spironolactone 50 mg p.o. daily. If she is not experiencing improvement in her symptoms by next week, we will plan for paracentesis. 2 g sodium restricted diet was counseled. -HE: No concerns for encephalopathy at this time. -EV: Will schedule EGD for screening of esophageal varices -Prophylaxis: Will check for immunity to hepatitis A & B. Strict alcohol avoidance counseled. Avoid NSAIDS. She may use tylenol up to 2 g/day as needed for aches and pains. US liver & AFP now and q6 months. [email or web address] Not available 09/12/2022 17:33:36 09/20/2022 09/20/2022 32-year-old female newly diagnosed cryptogenic cirrhosis with ascites. Etiology not clear: She has a history of chronic hepatitis C, which was treated in 2019 with Harvoni and with SVR achieved. Viral load was checked again last week and negative. She reports minimal alcohol consumption. She also has a family history of cirrhosis in her father and multiple paternal family members due to SOLER. 1) Cirrhosis: MELD-Na=16. Lab workup to evaluate for viral, autoimmune, and hereditary causes of liver disease is pending. HCV viral load is negative. Consider liver biopsy pending lab findings. -US abdomen with doppler pending. She does have a history of DVT and PE, not currently on anticoagulation. -I have placed a referral to the [facility] for evaluation due to elevated MELD. -Ascites: Improved. Continue Lasix 20 mg p.o. daily and Spironolactone 50 mg p.o. daily. 2 g sodium restricted diet was counseled. -HE: No concerns for encephalopathy at this time. -EV: EGD for screening of esophageal varices scheduled on 10/24/22. -Prophylaxis: Will check for immunity to hepatitis A & B. Strict alcohol avoidance counseled. Avoid NSAIDS. She may use tylenol up to 2 g/day as needed for aches and pains. US liver & AFP now and q6 months. [email or web address] Not available 09/20/2022 12:59:01 10/01/2022 10/01/2022 32-year-old female newly diagnosed cirrhosis with ascites. 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 She also has a history of chronic hepatitis C, which was treated in 2019 with Harvoni and with SVR achieved. Viral load was checked again 2 weeks ago and negative. She reports minimal alcohol consumption. She also has a family history of cirrhosis in her father and multiple paternal family members due to SOLER. 1) Cirrhosis: MELD-Na=16. Lab workup to evaluate for viral, autoimmune, and hereditary causes of liver disease shows an elevated IGG and actin smooth muscle AB. HCV viral load is negative. She will establish care with the [facility] on November 01. Will likely need liver biopsy but will defer to [facility] as they may prefer she have it done there. -Ascites: Improved. Continue Lasix 20 mg p.o. daily and Spironolactone 50 mg p.o. daily. 2 g sodium restricted diet was counseled. -HE: No concerns for encephalopathy at this time. -EV: EGD for screening of esophageal varices scheduled on 10/24/22. -Prophylaxis: She is immune to hepatitis A. She is not immune to hepatitis B. I have recommended we initiate the vaccination series for hepatitis B when she can be seen in the office again. Avoid NSAIDS. She may use tylenol up to 2 g/day as needed for aches and pains. US liver & AFP now and q6 months. -Strict abstinence from alcohol was counseled. 2) Nausea: Start Promethazine at bedtime. 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 f/u 6 weeks [email or web address] Not available 10/01/2022 12:07:13 01/01/2023 01/01/2023 32-year-old female with: 1) Cirrhosis: Etiology felt to be prior hepatitis C infection and alcohol use. MELD-Na=20 at 12/27/22: Lab workup to evaluate for viral, autoimmune, and hereditary causes of liver disease shows an elevated IGG and actin smooth muscle AB. HCV viral load was negative. Per [facility] records, they felt AIH process unlikely in the setting of active alcohol use as repeat ASMA was negative. -Ascites: Continue Lasix 40 mg p.o. daily and Spironolactone 100 mg p.o. daily per [facility] recommendations. 2 g sodium restricted diet was counseled. -HE: No concerns for encephalopathy at this time. -EV:No esophageal or gastric varices seen on EGD 10/24/22. Mild portal hypertensive gastropathy noted. Biopsies showed chronic gastritis and peptic duodenitis. Repeat recommended in 1 year. -Prophylaxis: She is immune to hepatitis A. She is not immune to hepatitis B. I have recommended we initiate the vaccination series for hepatitis B when she can be seen in the office again. Avoid NSAIDS. She may use tylenol up to 2 g/day as needed for aches and pains. -Liver lesions: AFP mildly elevated at 16.2. Following with regarding LRADS-3 lesions x2. Surveillance MRI planned in 3 months. -Strict abstinence from alcohol was counseled. 2) Nausea: Will start Mirtazapine 15 mg p.o at bedtime for nausea, appetite. She may also derive benefit from this regarding her anxiety and insomnia. I have recommended she follow-up with her PCP regarding ongoing management of anxiety disorder. 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 [email or web address] Not available 01/01/2023 16:09:33 Plan of Treatment Reminders Order Date Submit Date Provider Last Modified By Organization Details Last Modified Time Details Appointments None recorded. Lab afp (alpha-feto protein) tumor marker, serum or plasma [address] (Registration ), [address] , [place], [address], 3 13:23:21 PT/INR [address] (Registration ), [address] , [place], [address], 3 13:23:22 CMP, serum or plasma 2022 023 JUDY [facility] (Registration ), [address] , [place], [address], 3 14:37:57 CBC [address] (Registration ), [address] , [place], [address], 3 13:23:22 hemochromat osis mutation (hfe), blood/tissu e [address] (Registration ), [address] [place], [address], 3 13:23:22 alpha 1 antitrypsin , QN, serum or plasma [address] (Registration ), [address] [place], [address], 3 13:23:22 alpha 1 antitrypsin phenotyping , serum or plasma [address] (Registration ), [address] , [place], [address], 3 13:23:22 ceruloplasm in, serum [address] (Registration ), [address], [place], [address], 3 13:23:23 hepatitis C genotype, serum or plasma [address] (Registration ), [address], [place], [address], 3 13:23:23 hepatitis C RNA, quant, PCR, serum - Please order HCV RNA quant reflex to genotype [address] (Registration ), [address] , [place], [address], 3 13:23:23 HBsAg (hepatitis B surface Ag), serum [address] (Registration ), [address], [place], [address], 3 13:23:23 hepatitis B virus surface Ab, QN, serum [address] (Registration ), [address] [place], [address], 3 13:23:23 hepatitis B core Ab, total, serum [address] (Registration ), [address] [place], [address], 3 13:23:24 hepatitis A Ab panel [address] (Registration ), [address], [place], [address], 3 13:23:24 hepatitis A virus Ab, IgM, QN, serum [address] (Registration ), [address], [place], [address], 3 13:23:24 BLUE (antinuclea r antibodies) panel, serum [address] (Registration ), [address], [place], [address], 3 13:23:24 IgG, QN, serum [address] (Registration ), [address], [place], [address], 3 13:23:24 actin smooth muscle IgG Ab, quant, serum [address] (Registration ), [address], [place], [address], 3 13:23:25 mitochondri al Ab, serum [address] (Registration ), [address] , [place], [address], 3 13:23:25 liver kidney microsomal 1 Ab, quant, serum [address] (Registration ), [address] [place], [address], 3 13:23:25 HIV (1+2) Ab screen, serum [address] (Registration ), [facility] [facility] [place], [address], 3 13:23:25 Referral None recorded. Procedures None recorded. Surgeries None recorded. Imaging US, abdomen - Please perform doppler ultrasonogr aphy to evaluate for possible Budd-Chiari syndrome 2022 023 [email or web address] [facility] (Centralized Scheduling), [address], [place], [address], 3 13:03:35 Medication Orders mirtazapine 15 mg tablet 2022 023 [email or web address] [id number], [address] [facility] [address], [place], [place], [id number], 3 16:03:29 promethazin e 25 mg tablet 2022 023 [email or web address][id number], [address] [facility] [address], [place], [place], [id number], 3 10:07:25 Lasix 20 mg tablet 2022 023 [facility] #[id number], [address] [facility] [address], [place], [place], [id number], 3 10:07:26 spironolact one 50 mg tablet 2022 023 [facility] #[id number], [address] [facility] [address], [place], [place], [id number], 3 10:09:06 Patient TargetsNo targets recorded. Patient Instructions Encounter Date Encounter Id Patient Instructions Last Modified By Organization Details Last Modified Time 01/01/2023 [id number] DATE OF OPERATIO N: 10/24/2022 SURGEON: Orlando Saldaña MD PROCEDURE: Esophagogastroduod enoscopy. INDICATION FOR PROCEDURE: The patient is a very pleasant 32-year-old female with cirrhosis. EGD is planned for evaluation for esophageal and gastric varices. ASA SCORE: III. ANESTHESIA: MAC anesthesia provided by the Anesthesia Department. DESCRIPTION OF OPERATION: After informed consent, the patient was positioned in the left lateral decubitus position. A standard gastroscope was advanced from the mouth to the second portion of the duodenum without difficulty. The patient's toleration of the scope passage was excellent. Views were excellent. The scope was withdrawn. The mucosa was carefully examined. Within the esophagus, the Z-line was identified at 34 cm from the incisors and was normal and symmetric in appearance. There was an evidence of LA classification grade A reflux esophagitis. No esophageal varices were identified. No gastric varices were noted. There was moderate portal hypertensive gastropathy. The first and second portions of the duodenum appeared normal. COMPLICATIONS: None. BLOOD LOSS: Minimal. CONCLUSION: No esophageal or gastric varices. Mild portal hypertensive gastropathy. Biopsies performed. Normal duodenum. RECOMMENDATIONS: The patient is recommended to undergo repeat screening EGD in 1 year. She will follow up in the clinic regarding cirrhosis. PATH showed Chronic gastritis and peptic duodenitis. [email or web address] Not available 01/01/2023 16:09:47 Reason for Referral None Reported. Results Created Date Observation Date Name Description Value Unit Range Abnormal Flag Note LastModifiedBy Organization Detail LastModifiedTime 09/19/1909/18/2022 CBC AUTO NO DIFF (HEMO GRAM) WBC 7.7 K/uL 4.0-10 .5 Not Available [facility] ([facility]) [address] [place], [address], 09/18/2022 13:10:14 09/19/1909/18/2022 CBC AUTO NO DIFF (HEMO GRAM) RBC 3.5 M/mm3 4.2-6. 4 low Not Available [facility] ([facility]) [address] [place], [address], 09/18/2022 13:10:14 09/19/1909/18/2022 CBC AUTO NO DIFF (HEMO GRAM) HGB 12.6 gm/dL 12.5-1 6.0 Not Available [facility] ([facility]) [address], [place], [address], 09/18/2022 13:10:14 09/19/19 23 09/18/2022 CBC AUTO NO DIFF (HEMO GRAM) HCT 38.6 % 37.0-4 7.0 Not Available [facility] ([facility]) [address], [place], [address], 09/18/2022 13:10:14 09/19/19 23 09/18/2022 CBC AUTO NO DIFF (HEMO GRAM) MCV 109.7 fL 78-100 high Not Available [facility] ([facility]) [address], [place], [address], 09/18/2022 13:10:14 09/19/19 23 09/18/2022 CBC AUTO NO DIFF (HEMO GRAM) MCH 35.8 pg 27-31 high Not Available [facility] ([facility]) [address], [place], [address], 09/18/2022 13:10:14 09/19/19 23 09/18/2022 CBC AUTO NO DIFF (HEMO GRAM) MCHC 32.6 g/dL 32-36 Not Available [facility] ([facility]) [address], [place], [address], 09/18/2022 13:10:14 09/19/19 23 09/18/2022 CBC AUTO NO DIFF (HEMO GRAM) RDW 14.4 % 11.5-1 4.0 high Not Available [facility] ([facility]) [address], [place], [address], 09/18/2022 13:10:14 09/19/19 23 09/18/2022 CBC AUTO NO DIFF (HEMO GRAM) platelet count 90 K/uL 150-45 0 low Not Available [facility] ([facility]) [address], [place], [address], 09/18/2022 13:10:14 09/19/19 23 09/18/2022 CBC AUTO NO DIFF (HEMO GRAM) manual differential NO Not Available [facility] ([facility]) [address], [place], [address], 09/18/2022 13:10:14 09/19/19 23 09/18/2022 PT (PROT HROMB IN TIME) W INR prothrombin time 15.3 secon ds 9.3-11 .4 high Not Available [facility] ([facility]) [address], [place], [address], 09/18/2022 13:40:36 09/19/19 23 09/18/2022 PT (PROT HROMB IN TIME) W INR INR 1.5 ratio 0.97-1 .05 high INR is inten ded to be used ONLY for patie nts on stabl e oral antic oagul ant thera py. Thera peuti c Range s: 2.0-3 .0 Usual Thera peuti c Range 2.5-3 .5 For patie nts with histo ry of Multi ple Deep Vein Throm bus or Mecha nical Heart Valve s Not Available [facility] ([facility]) [address], [place], [address], 09/18/2022 13:40:36 09/19/19 23 09/18/2022 COMP METAB OLIC PANEL sodium 137 mmol/ L 136-14 5 Not Available [facility] ([facility]) [address], [place], [address], 09/18/2022 13:44:04 09/19/19 23 09/18/2022 COMP METAB OLIC PANEL potassium 3.6 mmol/ L 3.6-5. 0 Not Available [facility] ([facility]) [address], [place], [address], 09/18/2022 13:44:04 09/19/19 23 09/18/2022 COMP METAB OLIC PANEL chloride 103 mmol/ L 98-107 Not Available [facility] ([facility]) [address] , [place], [address], 09/18/2022 13:44:04 09/19/19 23 09/18/2022 COMP METAB OLIC PANEL carbon dioxide 27.0 mmol/ L 21.0-3 2.0 Not Available [facility] ([facility]) [address] , [place], [address], 09/18/2022 13:44:04 09/19/19 23 09/18/2022 COMP METAB OLIC PANEL anion gap 10.6 Not Available [facility] ([facility]) [address] , [place], [address], 09/18/2022 13:44:04 09/19/19 23 09/18/2022 COMP METAB OLIC PANEL glucose 109 mg/dL 70-120 Not Available [facility] ([facility]) [address] , [place], [address], 09/18/2022 13:44:04 09/19/19 23 09/18/2022 COMP METAB OLIC PANEL BUN 6 mg/dL 7-18 low Not Available [facility] ([facility]) [address] , [place], [address], 09/18/2022 13:44:04 09/19/19 23 09/18/2022 COMP METAB OLIC PANEL creatinine 0.7 mg/dL 0.6-1. 3 Not Available [facility] ([facility]) [address] , [place], [address], 09/18/2022 13:44:04 09/19/19 23 09/18/2022 COMP METAB OLIC PANEL glomerular filtration rate >60 mlper min 60- Not Available [facility] ([facility]) [address] , [place], [address], 09/18/2022 13:44:04 09/19/19 23 09/18/2022 COMP METAB OLIC PANEL total protein 8.1 g/dL 6.4-8. 2 Not Available [facility] ([facility]) [address], [place], [address], 09/18/2022 13:44:04 09/19/19 23 09/18/2022 COMP METAB OLIC PANEL albumin 3.0 g/dL 3.4-5. 0 low Not Available [facility] ([facility]) [address], [place], [address], 09/18/2022 13:44:04 09/19/19 23 09/18/2022 COMP METAB OLIC PANEL globulin 5.1 Not Available [facility] ([facility]) [address], [place], [address], 09/18/2022 13:44:04 09/19/19 23 09/18/2022 COMP METAB OLIC PANEL alb/glob ratio 0.6 0.7-2 low Not Available [facility] ([facility]) [address], [place], [address], 09/18/2022 13:44:04 09/19/19 23 09/18/2022 COMP METAB OLIC PANEL calcium 8.4 mg/dL 8.5-10 .5 low Not Available [facility] ([facility]) [address], [place], [address], 09/18/2022 13:44:04 09/19/19 23 09/18/2022 COMP METAB OLIC PANEL bilirubin total 4.30 mg/dL 0.10-1 .00 high Not Available [facility] ([facility]) [address] [place], [address], 09/18/2022 13:44:04 09/19/19 23 09/18/2022 COMP METAB OLIC PANEL AST (SGOT) 110 U/L 0-37 high Not Available [facility] ([facility]) [address] [facility] [place], [address], 09/18/2022 13:44:04 09/19/19 23 09/18/2022 COMP METAB OLIC PANEL ALT (SGPT) 53 U/L 0-65 Not Available [facility] ([facility]) [address], [place], [address], 09/18/2022 13:44:04 09/19/19 23 09/18/2022 COMP METAB OLIC PANEL alk phosphatase 141 U/L 46-116 high Not Available [facility] ([facility]) [address], [place], [address], 09/18/2022 13:44:04 09/19/19 23 09/19/2022 HCV RNA QUANT , RT-PC R [id number] HCV Not Detect ed IU/mL Not Available [facility] ([facility]) [address], [place], [address], 09/19/2022 19:10:11 09/19/19 23 09/19/2022 HCV RNA QUANT , RT-PC R test information Commen t . The quant itati ve range of this assay is 15 IU/mL to 100 perlita on IU/mL . Perfo rmed at: [facility] [place] [address] [facility] [place] [address] Lab Direc tor: Shira ward MD, Phone : [phone] Not Available [facility] ([facility]) [address] , [place], [address], 09/19/2022 19:10:11 09/19/19 23 09/20/2022 HCV RNA BY PCR, QN RFX DONN HCV log 10 TNP log10 _IU/m L Unabl e to calcu late resul t since non-n umeri c resul t obtai gilbert for compo nent test. Not Available [facility] ([facility]) [address], [place], [address], 09/20/2022 17:10:59 09/19/19 23 09/20/2022 HCV RNA BY PCR, QN RFX DONN test information Commen t . The quant itati ve range of this assay is 15 IU/mL to 100 perlita on IU/mL . Not Available [facility] ([facility]) [address], [place], [address], 09/20/2022 17:10:59 09/19/19 23 09/20/2022 HCV RNA BY PCR, QN RFX DONN HCV genotype TNP Not indic ated Perfo rmed at: - [facility] [place] [address] [facility] , [place] [address] Lab Direc tor: Shira ward MD, Phone : [phone] Not Available [facility] ([facility]) [address] [facility], [place], [address], 09/20/2022 17:10:59 09/19/19 23 09/20/2022 HCV RNA BY PCR, QN RFX DONN [id number] HCV Not Detect ed IU/mL Not Available [facility] ([facility]) [address] [facility], [place], [address], 09/20/2022 17:10:59 09/19/19 23 09/30/2022 BLUE COMPR EHENS REINA PANEL anti-ds DNA Ab <1 IU/mL 0-9 Negat reina <5 Equiv ocal 5 - 9 Posit reina >9 Negat reina <5 Equiv ocal 5 - 9 Posit reina >9 Not Available [facility] ([facility]) [address] [facility], [place], [address], 09/30/2022 19:09:30 09/19/19 23 09/30/2022 BLUE COMPR EHENS REINA PANEL ekg monitor tech Ab <0.2 ai 0.0-0. 9 Not Available [facility] ([facility]) [address] [facility], [place], [address], 09/30/2022 19:09:30 09/19/19 23 09/30/2022 BLUE COMPR EHENS REINA PANEL hsu Ab <0.2 ai 0.0-0. 9 Not Available [facility] ([facility]) [address] [facility], [place], [address], 09/30/2022 19:09:30 09/19/19 23 09/30/2022 BLUE COMPR EHENS REINA PANEL antisclerode rma-70 Ab <0.2 ai 0.0-0. 9 Not Available [facility] ([facility]) [address] [place], [address], 09/30/2022 19:09:30 09/19/19 23 09/30/2022 BLUE COMPR EHENS REINA PANEL sjogren's anti-ss-A <0.2 ai 0.0-0. 9 Not Available [facility] ([facility]) [address] [place], [address], 09/30/2022 19:09:30 09/19/19 23 09/30/2022 BLUE COMPR EHENS REINA PANEL sjogren's anti-ss-B <0.2 ai 0.0-0. 9 Not Available [facility] ([facility]) [address] [place], [address], 09/30/2022 19:09:30 09/19/19 23 09/30/2022 BLUE COMPR EHENS REINA PANEL antichromati n Ab <0.2 ai 0.0-0. 9 Not Available [facility] ([facility]) [address] [place], [address], 09/30/2022 19:09:30 09/19/19 23 09/30/2022 BLUE COMPR EHENS REINA PANEL anti-wellington-1 <0.2 ai 0.0-0. 9 Not Available [facility] ([facility]) [address] [place], [address], 09/30/2022 19:09:30 09/19/19 23 09/30/2022 BLUE COMPR EHENS REINA PANEL anti-centrom ere B antibodies <0.2 ai 0.0-0. 9 Not Available [facility] ([facility]) [address], [place], [address], 09/30/2022 19:09:30 09/19/19 23 09/30/2022 BLUE COMPR EHENS REINA PANEL see below: ANALILIA Stein [employer] [facility] [employer] [facility] [employer] [facility] ----- ----- ----- ----- ----- ----- ----- ----- ----- ----- ----- ----- Condi tion Frequ ency ----- ----- ----- ----- - ----- ----- ----- ----- ---- ----- ---- Antin uclea r Antib nia, SLE, mixed conne ctive Direc t (BLUE- D) kristenu e disea ses ----- ----- ----- ----- - ----- ----- ----- ----- ---- ----- ---- dsDNA SLE 40 - 60% ----- ----- ----- ----- - ----- ----- ----- ----- ---- ----- ---- Chrom atin Drug induc ed SLE 90% SLE 48 - 97% ----- ----- ----- ----- - ----- ----- ----- ----- ---- ----- ---- SSA (Ro) SLE 25 - 35% Sjogr en's Syndr ome 40 - 70% Neona nargis Lupus 100% ----- ----- ----- ----- - ----- ----- ----- ----- ---- ----- ---- SSB (La) SLE 10% Sjogr en's Syndr ome 30% ----- ----- ----- ----- - ----- ----- ----- ----- --- ----- ---- Sm (anti -Felipe h) SLE 15 - 30% ----- ----- ----- ----- - ----- ----- ----- ----- --- ----- ---- TOLL [employer]SM[employer] WORKER Mixed Conne ctive Tissu e Disea se 95% (U1 nRNP, SLE 30 - 50% anti- ribon ucleo prote in) Polym yosit is and/o r [place] tomyo sitis 20% ----- ----- ----- ----- - ----- ----- ----- ----- ---- ----- ---- Scl-7 0 (anti DNA Scler oderm a (diff use) 20 - 35% topoi gila ase) Crest 13% ----- ----- ----- ----- - ----- ----- ----- ----- ---- ----- ---- Wellington-1 Polym yosit is and/o r [place] tomyo sitis 20 - 40% ----- ----- ----- ----- - ----- ----- ----- ----- ---- ----- ---- Centr omere B Scler oderm a - Crest varia nt 80% Perfo rmed at: CB - [facility] [place] manuel [address] [facility], [place] [address] 1320 Lab Direc tor: Rian edwards PhD, Phone : [phone] . Autoa ntjosafat jules Disea se Assoc iatio n ----- ----- ----- ----- ----- ----- ----- ----- ----- ----- ----- ----- Condi nicole milligan ----- ----- ----- ----- - ----- ----- ----- ----- ---- ----- ---- Antin uclea brendan kramer, SLE, mixed angiee taylor Dire t (BLUE- D) chapo e disea nba ----- ----- ----- ----- - ----- ----- ----- ----- ---- ----- ---- dsDNA SLE 40 - 60% ----- ----- ----- ----- - ----- ----- ----- ----- ---- ----- ---- Chrom atin Drug induc ed SLE 90% SLE 48 - 97% ----- ----- ----- ----- - ----- ----- ----- ----- ---- ----- ---- SSA (Ro) SLE 25 - 35% Sjogr en's Syndr ome 40 - 70% Neona nargis Lupus 100% ----- ----- ----- ----- - ----- ----- ----- ----- ---- ----- ---- SSB (La) SLE 10% Sjogr en's Syndr ome 30% ----- ----- ----- ----- - ----- ----- ----- ----- --- ----- ---- Sm (anti -Felipe h) SLE 15 - 30% ----- ----- ----- ----- - ----- ----- ----- ----- --- ----- ---- TOLL TRANSMISSION WORKER Mixed Conne ctive Tissu e Disea se 95% (U1 nRNP, SLE 30 - 50% anti- ribon ucleo prote in) Polym yosit is and/o r [place] tomyo sitis 20% ----- ----- ----- ----- - ----- ----- ----- ----- ---- ----- ---- Scl-7 0 (anti DNA Scler oderm a (diff use) 20 - 35% topoi gila ase) Crest 13% ----- ----- ----- ----- - ----- ----- ----- ----- ---- ----- ---- Wellington-1 Polym yosit is and/o r [place] tomyo sitis 20 - 40% ----- ----- ----- ----- - ----- ----- ----- ----- ---- ----- ---- Centr omere B Scler oderm a - Crest varia nt 80% Perfo rmed at: [facility] [address] [facility], [place] [address] 5498 Lab Direc tor: Rian edwards PhD, Phone : [phone] Not Available [facility] ([facility]) [address] [facility], [place], [address], 09/30/2022 19:09:30 09/19/19 23 09/27/2022 A1A DEFIC STUART Mayfield, DNA analysis Commcharity t Resul t: c.109 6 G>A (p.Gl u366L ys), Z allel e - Not detec alea c.863 A>T (p.Gl u288V al), S allel e - Not detec alea Not assoc iated with incre ased risk of devel oping clini kimberly relev ant sympt oms of alpha -1 antit rypsi n defic iency . See Addit ional Clini rudi Infor matio n and Comme nts. Not Available [facility] ([facility]) [address], [place], [address], 09/27/2022 17:10:29 09/19/19 23 09/27/2022 A1A DEFIC ENCY PROFI LE additional information: Commen t . Addit ional Clini rudi Infor matio n: Alpha -1 antit rypsi n defic iency is an autos omal reces sive metab olic disor francisco with varia ble sever ity and age at onset . Signs and sympt oms may inclu de incre ased risk for chron ic obstr uctiv e lung disea se that typic ally manif ests after age 30, liver disea se, and liver cance r. Liver disea se can be prese nt in infan cy as neona nargis ayla stasi s (laurita dice) or in adult carlos as cirrh osis and fibro sis. Lung and liver disea se may be accel erate d by envir onmen nargis expos ures such as smoki ng and exces sive alcoh ol use. Estab lishe d treat ments for COPD and emphy sema are used to treat lung disea se; lung and/o r liver trans plant ation may be an optio n for those with with sever e disea se. Intra venou s augme ntati on thera py may be avail able for patie nts who meet crite juanita. . Comme nts: The ZZ and SZ genot ypes accou nt for more than 95% of indiv idual s with sever e alpha -1 antit rypsi n defic iency . To rule out other varia nts, furth er testi ng of sympt omati c indiv idual s heter ozygo us for one varia nt (S or Z) or with negat reina resul ts may inclu de pheno typin g (PI typin g), AAT level testi ng, and/o r expan ded genot yping . . Naomie ic couns viv is recom mario d to discu ss the poten tial clini rudi impli catio ns of posit reina resul ts, as well as recom menda tions for testi ng famil y membe rs. Naomie ic Coord inato rs are avail able for healt h care provi ders to discu ss resul ts at [phone] . Test Detai ls: Two varia nts melvin zed: c.109 6 G>A (p.Gl u366L ys), commo nly refer red to as the Z allel e or PI*Z c.863 A>T (p.Gl u288V al), commo nly refer red to as the S allel e or PI*S . Metho ds/Li mitat ions: DNA melvin sis of the S and Z allel es in the SERPI NA1 gene ([id number]) was perfo rmed by multi plex allel e-spe cific PCR ampli ficat ion follo wed by gel elect ropho resis . Resul ts must be combi gilbert with clini rudi infor matio n for the most accur ate inter preta tion. Molec ular- based testi ng is highl y accur ate, but as in any labor atory test, rare diagn ostic error s may occur . False posit reina or false negat reina resul ts may occur for reaso ns that inclu de naomie ic varia nts, blood trans fusio ns, bone marro w trans plant ation , somat ic or tissu e-spe cific mosai cism, misla beled sampl es, or monae eous repre senta tion of famil y relat ionsh ips. . This test was devel oped and its perfo rmanc e piter cteri stics deter mined by [employer] [facility]. It has not been clear ed or appro branden by the Food and Drug Admin istra tion. . Refer ences : Jennifer antony RA, Satya brown G, James sharma ML, Felipe s M, Ford CE, Michelle an K, Doyle th DK, Tim t SL, Deandra s JM, Genesis HUSAIN, Lashae crabtree C, Saurav Shabazz. The Diagn osis and Manag ement of Alpha -1 Antit rypsi n Defic iency in the Adult . Chron ic Obstr Pulm Dis. 2016 Nov 26;3(3 ):668 -682. doi: 10.15 326/j copdf .3.2014. 0182. PMID: 13789 891; PMCID : PMC55 03865 . Genesis HUSAIN, Iraj samuels V, Montez LOCK. Alpha -1 Antit rypsi n Defic iency . 2005Apr 18 Updat ed 2019November 10 . In: Eliezer MP, Cassandra dey HH, Luis RA, et al., hallie rs. GeneR anaw s(R) Inter net . Cadence singh (SABA): [facility] ity of Cadence Rosa; 1992- 2020. Avail able from: https ://vicky w.lab i.nlm .nih. gov/b ooks/ [email or web address] 19/ Not Available [facility] ([facility]) [address] [facility], [place], [address], 09/27/2022 17:10:29 09/19/19 23 09/27/2022 A1A DEFIC ENCY PROFI LE electronical ly signed by: Analilia faustin, PhD, [facility] Not Available [facility] ([facility]) [address] [place], [address], 09/27/2022 17:10:29 09/19/19 23 09/27/2022 A1A DEFIC ENCY PROFI LE a1a rfx to phenotype Not Indica alea Perfo rmed at: BN [facility] aleksandr espinal [address] [facility] [place] [address] 7659 Lab Direc tor: Shira ward MD, Phone : [phone] Perfo rmed at: - [facility]r [address]P [address] [place] [address] 1866 Lab Direc tor: Aurea uDrbinkaleb [facility] , Phone : [phone] Not Available [facility] ([facility]) [address], [place], [address], 09/27/2022 17:10:29 09/19/19 23 09/27/2022 A1A DEFIC ENCY PROFI LE jmqmy-4-doot trypsin,seru m 140 mg/dL 100-18 8 Not Available [facility] ([facility]) [address], [place], [address], 09/27/2022 17:10:29 09/19/19 23 09/30/2022 HIV 1 HIV screen 4TH generation wrfx Non Reacti ve non reacti ve HIV Negat reina HIV-1 /HIV- 2 antib odies and HIV-1 p24 antig en were NOT detec alea. There is no labor atory evide nce of HIV infec tion. Perfo rmed at: [place] [id number] [place], [place] [address] 1676 Lab Direc tor: Rian edwards PhD, Phone : [phone] HIV Negat reina HIV-1 /HIV- 2 antib odies and HIV-1 p24 antig en were NOT detec alea. There is no labor atory evide nce of HIV infec tion. Perfo rmed at: [place] [id number] [place], [place] [address] 8548 Lab Direc tor: Rian edwards PhD, Phone : [phone] Not Available [facility] ([facility]) [address], [place], [address], 09/30/2022 19:09:35 09/19/1909/30/2022 MITOC HONDR IAL ANTIB ODIES mitochondria l (M2) Ab <20.0 units 0.0-20 .0 Negat reian 0.0 - 20.0 Equiv ocal 20.1 - 24.9 Posit reina >24.9 . Mitoc hondr ial (M2) Antib odies are found in 90-96 % of patie nts with prima ry bilia ry cirrh osis. Perfo rmed at: [facility] [address] [facility] [employer] [facility], [place] [address] 1269 Lab Direc tor: Rian edwards PhD, Phone : [phone] Negat reina 0.0 - 20.0 Equiv ocal 20.1 - 24.9 Posit reina >24.9 . [facility] hondr ial (M2) Antib odies are found in 90-96 % of patie nts with prima ry bilia ry cirrh osis. Perfo rmed at: [facility] n [address] [facility] [employer] [facility], [place] [address] 1262 Lab Direc tor: Rian edwards PhD, Phone : [phone] Not Available [facility] ([facility]) [address] [facility], [place], [address], 09/30/2022 19:09:33 09/19/19 23 09/27/2022 HEP B S AB JIMMIE hep B surface Ab <3.1 mIU/m L immuni ty>9.9 low Statu s of Immun ity Anti- HBs Level ----- ----- ----- --- ----- ----- ---- Incon siste nt with Immun ity 0.0 - 9.9 Consi stent with Immun ity >9.9 Perfo rmed at: [facility] [address] [facility] [employer] [facility], [place] [address] 1260 Lab Direc tor: Rian edwards PhD, Phone : [phone] Not Available [facility] ([facility]) [address] [facility], [place], [address], 09/27/2022 17:11:37 09/19/19 23 09/30/2022 IGG IgG 2545 mg/dL 586-16 02 high Perfo rmed at: [facility] [address] [facility] [employer] [facility], [place] [address] 1262 Lab Direc tor: Rian edwards PhD, Phone : [phone] Perfo rmed at: - [facility] [place] [address], [place] [address] 1269 Lab Direc tor: Rian edwards PhD, Phone : [phone] Not Available [facility] ([facility]) [address], [place], [address], 09/30/2022 19:10:43 09/19/19 23 09/30/2022 CERUL OPLAS MIN ceruloplasmi n 22.2 mg/dL 19.0-3 9.0 Perfo rmed at: - [facility] [place] [address], [place] [address] 1269 Lab Direc tor: Rain edwards PhD, Phone : [phone] Perfo rmed at: [facility] [place] [address], [place] [address] 1269 Lab Direc tor: Rian edwards PhD, Phone : [phone] Not Available [facility] ([facility]) [address], [place], [address], 09/30/2022 19:10:41 09/19/19 23 09/27/2022 HEPAT ITIS B SURFA CE AG EIA HBsAg screen Negati ve negati ve Perfo rmed at: [facility] [place] [address] [employer], [place] [address] 1265 Lab Direc tor: Rian edwards PhD, Phone : [phone] Not Available [facility] ([facility]) [address] [facility], [place], [address], 09/27/2022 17:11:39 09/19/19 23 09/27/2022 HEP A AB, TOTAL hep A Ab, total Positi ve negati ve delta Perfo rmed at: - [facility] [place] [address], [place] [address] 1268 Lab Direc tor: Rian edwards PhD, Phone : [phone] Not Available [facility] ([facility]) [address], [place], [address], 09/27/2022 17:11:40 09/19/1909/27/2022 HEP A AB, IGM hep A Ab, IgM Negati ve negati ve Perfo rmed at: [facility] [address] [employer] [facility], [place] [address] 1262 Lab Direc tor: Rian edwards PhD, Phone : [phone] Not Available [facility] ([facility]) [address], [place], [address], 09/27/2022 17:11:41 09/19/19 23 09/30/2022 HEP B S AB JIMMIE hep B surface Ab <3.1 mIU/m L immuni ty>9.9 low Statu s of Immun ity Anti- HBs Level ----- ----- ----- --- ----- ----- ---- Incon siste nt with Immun ity 0.0 - 9.9 Consi stent with Immun ity >9.9 Perfo rmed at: [facility] n [address] [employer] [facility], [place] [address] 1265 Lab Dire tor: Rian edwards PhD, Phone : [phone] Statu s of Immun ity Anti- HBs Level ----- ----- ----- --- ----- ----- ---- Incon siste nt with Immun ity 0.0 - 9.9 Consi stent with Immun ity >9.9 Perfo rmed at: [facility] n [address] [employer] [facility], [place] [address] 1262 Lab Direc tor: Rian edwards PhD, Phone : [phone] Not Available [facility] ([facility]) [address], [place], [address], 09/30/2022 19:09:31 09/19/19 23 09/30/2022 ACTIN (SMOO TH MUSCL E) AB actin (smooth muscle) Ab 49 units 0-19 high Negat reina 0 - 19 Weak posit reina 20 - 30 Moder ate to stron g posit reina >30 . Actin Antib odies are found in 52-85 % of patie nts with autoi mmune hepat itis or chron ic activ e hepat itis and in 22% of patie nts with prima ry bilia ry cirrh osis. Perfo rmed at: [place] [address] [place] [address] 126 Lab Direc tor: Rian edwards PhD, Phone : [phone] Not Available [facility] ([facility]) [address] [facility], [place], [address], 09/30/2022 19:09:32 09/19/1909/30/2022 LIVER -KIDN EY MICRO AB liver-kidney microsomal Ab 1.6 units 0.0-20 .0 Negat reina 0.0 - 20.0 Equiv ocal 20.1 - 24.9 Posit reina >24.9 . LKM type 1 antib odies are detec alea in patie nts with autoi mmune hepat itis type 2 and in up to 8% of patie nts with chron ic HCV infec tion. Perfo rmed at: [place] [address] [place], [place] [address] 9205 Lab Direc tor: Rian edwards PhD, Phone : [phone] Not Available [facility] ([facility]) [address] [facility], [place], [address], 09/30/2022 19:10:38 09/19/19 23 09/30/2022 HERED ITARY HEMOC HROMA TOSIS hereditary hemochromati osis Commen t Resul t: c.845 G>A (p.Cy s282T yr) - Not Detec alea c.187 C>G (p.Hi s63As p) - Not Detec alea c.193 A>T (p.Se r65Cy s) - Not Detec alea Not assoc iated with incre ased risk to devel op clini rudi sympt oms of Hered itary Hemoc hroma tosis . In sympt omati c indiv idual s, other cause s of iron overl oad shoul d be evalu ated. See Addit ional Infor matio n and Comme nts. . Addit ional Clini rudi Infor matio n: Hered itary hemoc hroma tosis (HFE relat ed) is an autos omal reces sive iron stora ge disor francisco. Patie nts may have a naomie ic diagn osis of hered itary hemoc hroma tosis and never show clini rudi sympt oms. Clini rudi sympt oms typic ally appea r shariwe en 40 to 60 years in males and after menop ause in femal es. Signs and sympt oms may inclu de organ damag e, prima rily in the liver , risk for hepat ocell ular carci noma, diabe garima, and heart disea se due to iron accum ulati on. Life expec tancy may be decre ased in indiv idual s who devel op cirrh osis. Treat ment for clini kimberly sympt omati c indiv idual s may inclu de thera peuti c phleb otomy . Liver trans plant may be used to treat end stage liver failu re. For preve ntive care, monit oring for iron overl oad is recom mario d for patie nts who are homoz ygous for c.845 G>A (p.Cy s282T yr) and have yet to exper ience clini rudi sympt oms. . Comme nts: The most commo n HFE varia nts assoc iated with hered itary hemoc hroma tosis are c.845 G>A (p.Cy s282T yr), c.187 C>G (p.Hi s63As p), c.193 A>T (p.Se r65Cy s). While patie nts homoz ygous for c.845 G>A (p.Cy s282T yr) are the most likel y to prese nt clini rudi sympt oms, less than 10% devel op clini kimberly signi fican t iron overl oad with tissu e and organ damag e. . Naomie ic couns viv is recom mario d to discu ss the poten tial clini rudi impli catio ns of posit reina resul ts, as well as recom menda tions for testi ng famil y membe rs. Naomie ic Coord inato rs are avail able for healt h care provi ders to discu ss resul ts at [phone] ([phone] . Test Detai ls: Three varia nts melvin zed: c.845 G>A (p.Cy s282T yr), commo nly refer red to as C282Y c.187 C>G (p.Hi s63As p), commo nly refer red to as H63D c.193 A>T (p.Se r65Cy s), commo nly refer red to as S65C . Metho ds/Li mitat ions: DNA Melvin sis of the HFE gene ([id number]) was perfo rmed by PCR ampli ficat ion follo wed by restr ictio n enzym e diges tion melvin ses. Resul ts must be combi gilbert with clini rudi infor matio n for the most accur ate inter preta tion. Molec ular- based testi ng is highl y accur ate, but as in any labor atory test, diagn ostic error s may occur . False posit reina or false negat reina resul ts may occur for reaso ns that inclu de naomie ic varia nts, blood trans fusio ns, bone marro w trans plant ation , somat ic or tissu e-spe cific mosai cism, misla beled sampl es, or monae eous repre senta tion of famil y relat ionsh ips. This test was devel oped and its perfo rmanc e piter cteri stics deter mined by [facility]. It has not been clear ed or appro branden by the Food and Drug Admin istra tion. . Refer ences : Joselito BR, Shyam PC, Mattl ey [place], Levi lerma LW, Chiara lerma ; Cira can Assoc iatio n for the Study of Liver Disea ses. Diagn osis and manag ement of hemoc hroma tosis : 2010 pract ice guide line by the Cira manule for the Study of Liver Disea ses. Hepat ology . 2010;5 4(1): 328-4 3. doi: 10.10 02/madison p.243 30. PMID: 48345 290; PMCID : PMC31 99785 . Indio G, Ventura roger P, Zeina bay DW, Alfred cardona H, Yoan lam O, Nikos n S, Cha o I, Joyce s M, Roni y S. EMQN best pract ice guide lines for the molec ular naomie ic diagn osis of hered itary hemoc hroma tosis (HH). Eur J Hum Naomie . 2016 Sep;2 4(4): 479-9 5. doi: 10.10 /ej hg.20 15.12 8. Epub 2014Dec 28. PMID: 36773 218; PMCID : PMC49 48152 . . Mila manuel, PhD, [employer] Pipe Vincent , PhD Braulio roxie meraz, PhD, [employer] Dean faustin, PhD, [employer] Leonel monk, PhD, [employer] W Josh Temple, PhD, [employer] Catrina Courtney, PhD, [employer] Jet marin, PhD, FACMG Perfo rmed at: [facility] [address] [facility] , [facility] [address] 0150 Lab Direc tor: Aurea Persaud [facility] , Phone : [phone] Not Available [facility] ([facility]) [address] [facility], [place], [address], 09/30/2022 19:10:40 09/19/19 23 09/30/2022 HEPAT ITIS B SURFA CE AG EIA HBsAg screen Negati ve negati ve Perfo rmed at: - [facility] [address] [facility], [place] [address] 4348 Lab Direc tor: Rian edwards PhD, Phone : [phone] Perfo rmed at: - [facility] [address] [facility] [place] [address] 1269 Lab Direc tor: Rian edwards PhD, Phone : [phone] Not Available [facility] ([facility]) [address], [place], [address], 09/30/2022 19:10:44 09/19/19 23 09/30/2022 HEP A AB, TOTAL hep A Ab, total Positi ve negati ve delta Perfo rmed at: [facility] [address] [facility] [place] [address] 1269 Lab Direc tor: Rian edwards PhD, Phone : [phone] Perfo rmed at: [facility] n [address] [facility] [place] [address] 1269 Lab Direc tor: Rian edwards PhD, Phone : [phone] Not Available [facility] ([facility]) [address], [place], [address], 09/30/2022 19:10:45 09/19/19 23 09/30/2022 HEP A AB, IGM hep A Ab, IgM Negati ve negati ve Perfo rmed at: [facility] n [address] [facility] [address] 1269 Lab Direc tor: Rian edwards PhD, Phone : [phone] Perfo rmed at: [facility] n [address] [facility] [place] [address] 1269 Lab Direc tor: Rian edwards PhD, Phone : [phone] Not Available [facility] ([facility]) [address], [place], [address], 09/30/2022 19:10:45 09/19/19 23 10/12/2022 HEP B CORE AB IGM QUAL hep B core Ab, IgM TNP negati ve TEST NOT PERFO RMED QNS Quant ity Not Suffi cient Not Available [facility] ([facility]) [address] [facility], [place], [address], 10/12/2022 15:08:25 09/19/19 23 11/21/2022 A1A PHENO TYPE CONFI RMATI ON a1a phenotype confirmation SEE RHYS Luna RPT Not Available [facility] ([facility]) [address], [place], [address], 11/21/2022 17:31:55 10/12/19 23 10/11/2022 US, liver [facility] [address] [place] [address] Phone: Fax: Name: CORIE WADE Exam Date: : [birth year] Age 32 Gender : F Access ion: [id number] Physic francisca: ADRYAN BEARDEN Facili ty: 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 PROCED URE: Ultras ound images of the right upper quadra nt were obtain ed. FINDIN GS: The pancre as is not well visual ized . There is a coarse gilbert echote xture to the liver, correl ate for hepato cellul ar diseas e. There is ascite s. Gallbl adder is disten ded with cholel ithias is. Gallbl adder wall is thicke gilbert up to 6 mm. Limite d images of the right kidney are unrema rkable . IMPRES NATHAN: Coarse gilbert echote xture of the liver, hepato cellul ar diseas e. Disten ded gallbl adder with gallst ones and gallbl adder wall thicke luann with ascite s. Consid er nuclea r medici ne HIDA scan. Images review ed, interp reted and dictat ed by Dr. Alexander. Transc ribed by Phil Devine PA-C Dictat ed By: ASHWINI ALEXANDER Transc ribed By: Ashwini Alexander Transc ribed On: 023 3:25 PM Electr onical ly signed by: ASHWINI ALEXANDER 023 Thank you for referr CORIE Moscoso to [facility]. Legall y authen ticate d by POPE ASHWINI Ruiz 2022-0 10-11 15:25: 05 CC'ed Logic: Orderi ng Provid er: BEARDEN ELGIN Attend ing Provid er: BEARDEN ELGIN Admitt ing Provid er: [facility] [id number] [facility] [address], [place], [address], 10/15/2022 17:05:43 Result Notes None recorded. 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 Adryan Bearden PA-C [address] , [place], [address] , [place] - [facility] - [place] & [place] 3 14:22:25 [facility] 935516343 Active 2022 Adryan Bearden PA-C [address] , [place], [address] , [place] [facility] & [place] 3 14:22:43 Portal hypertension 53517741 Active 2022 Adryan Bearden PA-C [address] , [place], [address] , [place] [facility] [place] 3 14:22:49 Streptococcal sore throat 24497118 Active 2022 Adryan Bearden PA-C [address], [place], [address] , [place] [facility] [place] 3 13:22:22 Nausea 830109042 Active 2022 Adryan Bearden PA-C [address], [place], [address] , [place] [facility] [facility] [place] 3 11:21:14 Cholelithiasi s without obstruction 54876719 Active 2022 Adryan Bearden PA-C [address], [place], [address] , [place] [facility] [facility] [place] 3 17:12:20 Disorder of gallbladder 76598070 Active 2022 Adryan Bearden PA-C [address], [place], [address] , [place] [facility] [place] [facility] [place] 3 13:30:25 Lesion of liver 096912372 Active 2022 Adryan Bearden PA-C [address], [place], [address] , [place] 3 13:30:30 Problem Notes None recorded. Procedures Surgical History Date Name Laterality Status Provider Name and Address Organization Details Recorded Time 06/23/19 13 Appendectomy completed Georgina Pattie [place] [facility] [place] 10/22/2022 10:07:27 06/23/19 13 Abdominal Surgery completed Georgina Pattie [place] [facility] [place] 10/22/2022 10:07:27 06/23/19 12 Other completed Georgina Pattie [place] [facility] [place] 10/22/2022 10:07:27 06/23/19 11 Other completed Georgina Pattie [place] [facility] [place] 10/22/2022 10:07:27 06/23/19 10 Other completed Georgina Pattie [place] 10/22/2022 10:07:27 06/23/19 08 ENT Surgery [place] Georgina Pattie [place] [facility] [place] 10/22/2022 10:07:27 Imaging Results Imaging Date Name Status LastModified by Organiz ation Details LastModified Time 10/11/2022 [place], liver completed [email or web address] [facility] - Physical Therapy [address], [place], [address], 10/15/2022 17:05:43 Procedure Notes None recorded. Medical Equipment None Reported. Allergies Allergen ID Allergen Name Allergen Category Reaction Reaction Severity Criticality Documentation Date Start Date Code Code System Note Provider Name and Address Organization Details Recorded Time 54491 amoxicill in medicatio n Not available Not available Not available 10/22/2022 723 RxNorm Georgina Diana gutierres, [facility] - [place] 3 10:07:25 Medications Name Sig Start Date Stop Date Status Note LastModified by Organization Details LastModified Time amoxicillin 500 mg capsule TAKE 1 CAPSULE BY MOUTH TWICE DAILY FOR 10 DAYS active Not Available Not Available No t Available azithromyci n 250 mg tablet TAKE 2 TABLETS BY MOUTH ON DAY 1, AND THEN TAKE 1 TABLET BY MOUTH ONCE A DAY ON DAY 2 THROUGH DAY 5 09/12 completed Not Available Not Available Not Available fluconazole 150 mg tablet TAKE 1 TABLET BY MOUTH DAILY active Not Available Not Available No t Available ondansetron HCl 4 mg tablet active Not Available Not Available Not Available sulfamethox azole 800 mg-trimetho prim 160 mg tablet TAKE 1 TABLET BY MOUTH TWICE DAILY 09/12 completed Not Available Not Available Not Available amoxicillin 500 mg tablet Take 1 tablet twice a day by oral route for 10 days. 2022 active Not Available Not Available Not Avai lable tamsulosin 0.4 mg capsule TAKE 1 CAPSULE BY MOUTH ONCE DAILY 09/12 completed Not Available Not Available Not Available promethazin e 25 mg tablet TAKE 1 TABLET BY MOUTH EVERY DAY AT BEDTIME active Not Available Not Available No t Available furosemide 20 mg tablet TAKE 1 TABLET BY MOUTH EVERY DAY active Not Available Not Available No t Available mirtazapine 15 mg tablet TAKE 1 TABLET BY MOUTH EVERY DAY AT BEDTIME active Not Available Not Available No t Available methylpredn isolone 4 mg tablets in a dose pack TAKE BY MOUTH DIRECTED ON INSIDE OF PACKAGE 09/12 completed Not Available Not Available Not Available hydroxyzine HCl 10 mg tablet active Not Available Not Available Not Available ondansetron 4 mg disintegrat ing tablet DISSOLVE 1 TABLET IN MOUTH EVERY 8 HOURS NEEDED FOR NAUSEA FOR VOMITING 09/12 completed Not Available Not Available Not Available spironolact one 50 mg tablet TAKE 1 TABLET BY MOUTH EVERY DAY active Not Available Not Available No t Available potassium chloride ER 20 mEq tablet,exte nded release active Not Available Not Available Not Available Vitals Date Recorded Body height Body mass index (BMI) Body weight Oxygen saturation Oxygen saturation in Arterial blood by Pulse oximetry Heart rate Systolic blood pressure Diastolic blood pressure Provider Name and Address Organization Details Last Updated DateTime 3 167.64 cm 25.8 kg/m2 82291.7 g 97 % 97 % 131 /min 122 mm[Hg] 78 mm[Hg] Cat Mchugh [facility] & [place] 3 13:51:59 Date Recorded Body height Body mass index (BMI) Body weight Body temperature Oxygen saturation Oxygen saturation in Arterial blood by Pulse oximetry Heart rate Systolic blood pressure Diastolic blood pressure Provider Name and Address Organization Details Last Updated DateTime 3 167.64 cm 23.7 kg/m2 88276.0 8 g 99.6 [degF] 100 % 100 % 112 /min 124 mm[Hg] 78 mm[Hg] Georgina lerma [facility] & [place] 3 10:06:50 Social History Question Answer Notes LastModified by [employer] Details LastModified Time Tobacco Smoking Status Former Smoker Georgina gutierres, [facility] & [place] 10/22/2022 10:07:27 Do You Have An Advance Directive? No Information not available 10/22/2022 What Is Your Level Of Alcohol Consumption? Occasional Information not available 10/22/2022 Are You Blind Or Do You Have Difficulty Seeing? No Information not available 10/22/2022 What Was The Date Of Your Most Recent Tobacco Screening? 09/12/2022 Information not available 10/22/2022 Are You Passively Exposed To Smoke? Yes Information no t available 10/22/2022 How Much Tobacco Do You Smoke? No Information not available 10/22/2022 Do You Feel Stressed (tense, Restless, Nervous, Or Anxious, Or Unable To Sleep At Night)? [id number] Information not available 10/22/2022 Do You Use Any Illicit Or Recreational Drugs? No Information not available 10/22/2022 Sex: Female Functional Status Question Answer Note LastModified by Organizat ion Details LastModified Time What is your exercise level? Occasional Information not available 10/22/2022 Mental Status None recorded. Family History Relationship Description Onset Age of this Age Resolved Age Notes LastModified by Organization Details LastModified Time Father Disease of liver pt. added direct ly (09/12) [email or web address]-13 Not available 09/12/2022 12:17:14 Paternal Uncle Disease of liver pt. added direct ly (09/12) [email or web address]-13 Not available 09/12/2022 12:17:14 Maternal Grandmother Kidney disease pt. added direct ly (09/12) [email or web address]-13 Not available 09/12/2022 12:17:27 Maternal Uncle Kidney disease pt. added direct ly (09/12) API-13 Not available 09/12/2022 12:17:44 Sister Seizure disorder pt. added direct ly (09/12) API-13 Not available 09/12/2022 12:18:03 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 Condition Response Clotting Disorder Y Liver Disease Y Kidney or Bladder Problems Y Acne Y Seizures/Epilepsy Y Gynecological History Statement/Question Response Menses Monthly N Abnormal Pap N Duration of Flow (days) 3-5 Current Control Method None Flow Moderate Date of LMP 12/20/2015 Sexually Active? 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 History of hepatitis C 4012060751 9101 Z86.19 Ascites 159058808 R18.8 Portal hypertension 3474 2002 K76.6 History of deep vein thrombosis 993782830 Z86.718 Family his tory of cirrhosis of liver 9968402872 928497 Z83.79 [id number] Adryan Bearden PA-C [facility] [address] [address] 09/20/2022 11:15:58 09/20/2022 11:30:31 Cryptogenic cirrhosis 13017320 K74.69 History of hepatitis C 9646696812 9101 Z86.19 Ascites 935576437 R18.8 Portal hypertension 3472002 K76.6 History of deep vein thrombosis 010263284 Z86.718 Family his tory of cirrhosis of liver 1680472669 429691 Z83.79 [id number] Adryan Bearden PA-C [facility] [address] [place] [address] 10/01/2022 10:52:21 10/01/2022 11:40:07 Cryptogenic cirrhosis 51263623 K74.69 History of hepatitis C 2263198946 9101 Z86.19 Ascites 214192411 R18.8 Portal hypertension 3472002 K76.6 History of deep vein thrombosis 394442764 Z86.718 Family his tory of cirrhosis of liver 0975604991 905880 Z83.79 Nausea 091519393 R11.0 [id number] Kierra Robles MD [facility] General Surgery [address] [place] [address],[address] [place] [address] 10/22/2022 10:00:13 10/22/2022 10:53:49 Cholelithiasis without obstruction 96993910 K80.20 Known gallstones which are somewhat symptomati c. Patient has new diagnosis of cirrhosis with known portal hypertensi on. We discussed at length that cholecyste ctomy in this setting can be high-risk and may not be warranted. I have recommende d using low-fat diet to help control symptoms and encouraged the patient to discuss the gallstones and symptoms at her upcoming consultati on with the liver surgeons at [facility]. Patient had concerns about undergoing anesthesia for EGD. We did discuss necessity of EGD to evaluate for esophageal varices and the use of conscious sedation for this procedure. Cirrhosis of liver K74.60 Meld score of 16 per recent GI note. Portal hypertension 3473 2002 K76.6 I have reviewed the patient's recent ER visit, CT imaging, GI visit and lab work. Time spent in review and discussion with the patient was 50 minutes [id number] Adryan Bearden PA-C [facility] [address] [place] [address] 01/01/2023 13:25:17 01/01/2023 13:29:10 Cryptogenic cirrhosis 07920580 K74.69 History of hepatitis C 0998634790 9101 Z86.19 Ascites 155907613 R18.8 Portal hypertension 3474 2003 K76.6 History of deep vein thrombosis 439600863 Z86.718 Family his tory of cirrhosis of liver 2908397614 943142 Z83.79 Nausea 976996242 R11.0 Disorder o f gallbladder 69926536 K82.9 Lesion of liver 69378607 0 K76.9 Health Concerns Section Related Observation LastModified by Organization Detai ls LastModified Time None Recorded Concern Status LastModified by Organization Details LastModified Time None Recorded Advance Directives Directive N: Payers Encounter Date Sequence Insurance Name Policy Number Policy Kapadia Covered Member ID Kapadia Member ID Guarantor Name 09/12/2022 1 [employer] - [place] ROCIO Pittman [id number] Mindy Wade 09/20/2022 1 [employer] SIVA Mindy Luna Pittman [id number] Mindy Wade 10/01/2022 1 [employer] ROCIO Luna Pittman [id number] Mindy Wade 10/22/2022 1 [employer] ROCIO Pittman [id number] Mindy Wade 01/01/2023 1 [employer] SIVA Mindy Luna Pittman [id number] Mindy Wade Notes Date Note Type Note Provider Name and Address Organization Details Recorded Time 09/12/2022 text/html Ms. Pittman is a ve ry pleasant 32 yo female who was referred by Dr. Graves for evaluation of apparent newly diagnosed cirrhosis with ascites. Patient recently underwent CT in evaluation of flank pain and was found to have cirrhotic morphology of the liver with evidence of portal hypertension and moderately large ascites. She has a history of chronic hepatitis C that was treated with Harvoni in 2020 with report that SVR was achieved. She has a family history of Cirrhosis in her father and in two paternal great uncles. Her father received a liver transplant, possibly related to [facility]. She reports minimal alcohol consumption. She quantifies this as approximately 2 wine coolers once every two weeks when watching UFC. She complains of abdominal distension and tightness. 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 She denies LE swelling, confusion, memory issues, or leg cramps. Adryan Bearden PA-C [address], [place], [address], [facility] - [facility] - [facility] 09/12/2022 17:33:55 09/20/2022 text/html PREVIOUS ( 3): Ms. Pittman is a very pleasant 32 yo female who was referred by Dr. Graves for evaluation of apparent newly diagnosed cirrhosis with ascites. Patient recently underwent CT in evaluation of flank pain and was found to have cirrhotic morphology of the liver with evidence of portal hypertension and moderately large ascites. She has a history of chronic hepatitis C that was treated with Harvoni in 2019 with report that SVR was achieved. She has a family history of Cirrhosis in her father and in two paternal great uncles. Her father received a liver transplant, possibly related to [facility]. She reports minimal alcohol consumption. She quantifies this as approximately 2 wine coolers once every two weeks when watching UFC. She complains of abdominal distension and tightness. 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 She denies LE swelling, confusion, memory issues, or leg cramps. CURRENT (09/20/22): Ms. Pittman presents via telephonic encounter today for follow-up of newly diagnosed cirrhosis with ascites. She was started on Lasix and Aldactone last week and has had improvement in abdominal distension. She feels better overall. Lab workup for possible causes of cirrhosis is pending. Her MELD-Na is currently 16. I spent a total of 13 minutes during this real-time clinical encounter that was initiated by the patient which started at 1148 and ended at 1201. Consent was obtained to engage in telephonic service. Greater than 50% of the time spent was devoted to counseling and coordinating care including review of patient record, patient lab data and studies as well as discussing diagnostic evaluation and workup, planned therapeutic intervention and further disposition of care. Adryan Bearden PA-C [address], [place], [address], [facility] [place] 09/20/2022 12:59:18 10/01/2022 text/html PREVIOUS ( 3): Ms. Pittman is a very pleasant 32 yo female who was referred by Dr. Graves for evaluation of apparent newly diagnosed cirrhosis with ascites. Patient recently underwent CT in evaluation of flank pain and was found to have cirrhotic morphology of the liver with evidence of portal hypertension and moderately large ascites. She has a history of chronic hepatitis C that was treated with Harvoni in 2019 with report that SVR was achieved. She has a family history of Cirrhosis in her father and in two paternal great uncles. Her father received a liver transplant, possibly related to [facility]. She reports minimal alcohol consumption. She quantifies this as approximately 2 wine coolers once every two weeks when watching UFC. She complains of abdominal distension and tightness. 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 She denies LE swelling, confusion, memory issues, or leg cramps. CURRENT (09/20/22): Ms. Pittman presents via telephonic encounter today for follow-up of newly diagnosed cirrhosis with ascites. She was started on Lasix and Aldactone last week and has had improvement in abdominal distension. She feels better overall. Lab workup for possible causes of cirrhosis is pending. Her MELD-Na is currently 16. I spent a total of 13 minutes during this real-time clinical encounter that was initiated by the patient which started at 1148 and ended at 1201. Consent was obtained to engage in telephonic service. Greater than 50% of the time spent was devoted to counseling and coordinating care including review of patient record, patient lab data and studies as well as discussing diagnostic evaluation and workup, planned therapeutic intervention and further disposition of care. CURRENT: Ms. Pittman returns to the office today for follow-up regarding recently diagnosed cirrhosis with ascites. Comprehensive lab workup shows an elevated total IGG and actin smooth muscle antibody, raising concern for autoimmune hepatitis. Alkaline phosphatase is minimally elevated. She complains of night time nausea without vomiting. She reports that her abdominal distension is currently resolved with recent addition of low dose diuretics. She has an initial appointment pending with the [facility] on November 01. I spent a total of 12 minutes during this real-time clinical encounter that was initiated by the patient which started at 1106 and ended at 1118. Consent was obtained to engage in telephonic service. Greater than 50% of the time spent was devoted to counseling and coordinating care including review of patient record, patient lab data and studies as well as discussing diagnostic evaluation and workup, planned therapeutic intervention and further disposition of care. Adryan Bearden PA-C [address], [place], [address], [facility] - [facility] & [place] 10/01/2022 12:09:02 10/22/2022 text/html 32-year-old vandana manuel referred for gallstones. Patient has had some intermittent, postprandial right upper quadrant pain which is mild to moderate. This has occurred over a period of time, is becoming somewhat more frequent. Patient has a recent diagnosis cirrhosis with ascites and portal hypertension. This is thought to possibly be autoimmune. There is a family history of liver failure, father has had a liver transplant, 2 paternal uncles have of liver failure. Patient has an appointment scheduled to see liver transplant at [facility] later in the month. She is also scheduled for EGD with Dr. Sadlaña to evaluate for esophageal varices later this week. Kierra Robles MD [address], [place], [address], [place] - [facility] & [place] 10/24/2022 13:09:58 01/01/2023 text/html PREVIOUS ( 3): Ms. Pittman is a very pleasant 32 yo female who was referred by Dr. Graves for evaluation of apparent newly diagnosed cirrhosis with ascites. Patient recently underwent CT in evaluation of flank pain and was found to have cirrhotic morphology of the liver with evidence of portal hypertension and moderately large ascites. She has a history of chronic hepatitis C that was treated with Harvoni in 2019 with report that SVR was achieved. She has a family history of Cirrhosis in her father and in two paternal great uncles. Her father received a liver transplant, possibly related to [facility]. She reports minimal alcohol consumption. She quantifies this as approximately 2 wine coolers once every two weeks when watching UFC. She complains of abdominal distension and tightness. 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 She denies LE swelling, confusion, memory issues, or leg cramps. CURRENT (09/20/22): Ms. Pittman presents via telephonic encounter today for follow-up of newly diagnosed cirrhosis with ascites. She was started on Lasix and Aldactone last week and has had improvement in abdominal distension. She feels better overall. Lab workup for possible causes of cirrhosis is pending. Her MELD-Na is currently 16. PREVIOUS (10/01/22): : Ms. Pittman returns to the office today for follow-up regarding recently diagnosed cirrhosis with ascites. Comprehensive lab workup shows an elevated total IGG and actin smooth muscle antibody, raising concern for autoimmune hepatitis. Alkaline phosphatase is minimally elevated. She complains of night time nausea without vomiting. She reports that her abdominal distension is currently resolved with recent addition of low dose diuretics. She has an initial appointment pending with [facility] November 01. CURRENT: Ms. Wade presents via telephonic encounter today for follow-up regarding cirrhosis. She has established care with the liver transplant clinic. They have deferred transplant evaluation currently due to recent alcohol use. She underwent MRI liver there last week with identification of two LRADS-3 lesions, one at 6mm, and one at 10 mm. 3 month surveillance MRI is planned. AFP was mildly elevated at 16.2, Her MELD-Na score at that time was 20. She states that her diuretics were increased during that visit. She continues to have some lower extremity swelling. She reports nausea for which she is taking Zofran, trouble sleeping at night, and frequent anxiety that she feels is not well controlled. I spent a total of 14 minutes during this real-time clinical encounter that was initiated by the patient which started at 1301 and ended at 1314. Consent was obtained to engage in telephonic service. Greater than 50% of the time spent was devoted to counseling and coordinating care including review of patient record, patient lab data and studies as well as discussing diagnostic evaluation and workup, planned therapeutic intervention and further disposition of care. Adryan Bearden PA-C [address], [place], [address], [facility] - [place] - [place] & [place] 01/01/2023 16:10:15 OBGyn Episode No OBEpisode recorded.
== END 2024-10-18 23:59 | disposition home or self-care (01) ==
LOC: LAB.DROPOF 10-19 13:23
PROVIDERS: PCP Student in an Organized Health Care Education/Training Program; Visit Provider Student in an Organized Health Care Education/Training Program
DX: R30.0 Dysuria (principal); N39.0 Urinary tract infection, site not specified; B96.1 Klebsiella pneumoniae [K. pneumoniae] as the cause of diseases classified elsewhere; B96.20 Unspecified Escherichia coli [E. coli] as the cause of diseases classified elsewhere
CPT/HCPCS: 87086; 87088; 87186

== ENCOUNTER 2025-01-12 14:56 | Outpatient (CLI) | payer OTHER, SELFPAY ==
--- OUTSIDE RECORDS SUMMARY | 2024-11-04 13:00 | XMS_ITS | Encounter Summary ---
Author Organization [facility] Address [address] [place] [id number] Care Team Providers Care Turner Machine Name Role Phone Yonatan Graves DO Primary Care Provider Farida Ortega CARDIAC CATH LAB MANAGER Unavailable [phone] Source Comments This information has been disclosed [...] release of HIV test results or diagnoses. [id number] Health Encounter Details Date Type Department Care Team (Late st Contact Info) Description 11/04/2024 1:00 PM EDT Office Visit [facility] Psychiat[facility] Transplant at [facility] [address] [facility] [address] [place] [address] Annmarie Moore PsyD [address] [facility] [address] [place] [address] Generalized anxiety disorder (Primary Dx); Alcohol use disorder, severe, in sustained remission (CMS-HCC) Social History Tobacco Use Types Packs/Day Years Used Date Smoking Tobacco: Former Cigarettes 0.3 1.2 0 07/22/2014 - 07/22/2015 Smokeless Tobacco: Never Alcohol Use Standard Drinks/Week Comments Not Currently 0 (1 standard drink = 0.6 oz pur e alcohol) PHQ-2 Answer Date Recorded PHQ-2 Total Score 2 11/04/2024 Comments No Sex and Gender Information Value Date Recorded Sex Assigned at Not on file Legal Sex Female 7:36 PM EDT Gender Identity Not on file Sexual Orientation Not on file documented as of this encounter Progress Notes * Annmarie Moore PsyD - 11/04/2024 1:00 PM EDT Transplant Psychology Pre-Transplant Psychological Evaluation Mindy Wade is a 34 y.o. female who was referred for a pre-transplant psychological evaluation bytransplant social work. Patient is currently being evaluated for listing for liver transplant. The following assessment was informed by the [place] Integrated Psychosocial Assessment for Transplant ( SIPAT) and the SIPAT-General TXP Long Form ?? Demetrio et al, 2008; Demetrio et al, Psychosomatics 2012. Assessment Measures: Clinical Interview Patient Health Questionnaire -9 (PHQ-9) Generalized Anxiety Disorder-7 (CHATO-7) [place] Cognitive Assessment (MoCA) [place] Integrated Psychosocial Assessment for Transplant (SIPAT) Patient arrived to the appointment on-time and was escorted to a private office. The role of psychologist within the transplant team was discussed, and limits of confidentiality were reviewed. Patient verbalized understanding and agreed to proceed with the evaluation. All information was provided by the patient unless otherwise noted. Mental Status Examination: - Orientation: Person, place, time, and situation - Appearance: appropriately dressed, looked stated age - Motor: WNL - Eye contact: WNL - Speech: Normal tone, volume, rate, articulation and intensity - Speech content: without delusions, paranoia, suicidal or homicidal ideations, intent or plan - Thought Process: Organized with linear process - Mood: little nervous , euthymic - Affect: Congruent - Attitude: Cooperative, friendly - Judgment/Insight: Fair Social History Patient currently resides in a house with her , three children (14, 13, 8), and 2 dogs. Primary supports include her , a best friend, and her cousins/family. He noted that her grandparents primarily raised her, and she has one sister, one brother, and two half siblings. Patient attended some college and never served in the . She is currently on SSDI. Hobbies include gardening, cooking, and attending her kids sports activities. She identified as Muslim and reported a strong cristian. She denied other engagement in community groups. 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 Of note, her father had a liver transplant at 8-9 years ago due to MASH, and he has been helpful with information.She was previously seen at and her evaluation was closed as she continued todrink. She reported sobriety since July 2023 and ongoing engagement in CD treatment. Patient's and other family members are identified as post-surgical caregivers. - Comments regarding medication compliance: Patient manages her medications independently and they are organized in their pill bottles. She denied any patterns of missed doses. Patient reported one instance of leaving the hospital AMA in approximately 2014, which she attributed to active withdrawal. Patient trusts her caregivers to manage medications on her behalf, if necessary. - Additional 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, per chart review: Past 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: Diagnosis Date Abdominal hernia 02/21/2023 Alcoholic hepatitis Anxiety Ascites Chronic diarrhea 08/21/2022 Cirrhosis (CMS-HCC) Cystitis Depression Hepatitis C Past Surgical History: Procedure Laterality Date APPENDECTOMY CYST REMOVAL Right had a cystic lesion under right breast with hematoma and cyst per patient which was removed ESOPHAGOGASTRODUODENOSCOPY N/A 07/28/2024 Procedure: EGD; Surgeon: Mario Ramirez MD; Location: ENDOSCOPY; Service: Gastroenterology; Laterality: N/A; UPPER GASTROINTESTINAL ENDOSCOPY 09/21/2022 Psychiatric History / Psychological Health: Patient reported a history of anxiety and depression. The former has been longstanding, whereas depression has emerged in response to health decline. She noted past trial of Remeron, Lexapro, hydroxyzine and Gabapentin for anxiety. Chart review also indicates previous prescription for Prozac (2022). Patient linked previous use of alcohol as a way to manage anxiety symptoms. She currently sees Dr. Guajardo at for psychiatry. She also follows with a counselor, Brynn Pittman, who she sees every 2-3 weeks. Psychiatry records indicated diagnoses of AUD, CHATO, and OUD. Psychotherapy/counseling records were not received. Patient reported current symptoms of feeling anxious, difficulties controlling worrying, worrying too much about different things, trouble relaxing, restlessness, and irritability (CHATO-7=9). Patient also endorsed anhedonia, feeling down, difficulties sleeping, fatigue, change in appetite, feeling bad about self, trouble concentrating, and psychomotor slowing (PHQ-9=13). History of panic attacks with most recent in 2023. Patient denied a history of trauma and denied trauma-related symptoms. Patient denied symptoms related to teressa/hypomania, OCD, and psychosis. She denied recent or past suicidal ideation, plan, or intent. Patient also denied any history of suicide attempts or psychiatric hospitalizations. Primary coping mechanisms consist of deep breathing, distractions, calling supports, speaking with her counselor, and playing games. 12/27/2022 - Transplant Psychosocial Evaluation Anxiety reported Discrepancies in alcohol use and PEth results Insurance/Financial Changes anticipated. Recommended for CD treatment and improved insight Family Psychiatric History: JET (mother, sister), Depression, Anxiety - Cognitive screening: Unable to administer MoCA due to time constraints. Patient's cognitive abilities appeared grossly intact. Substance Use History: Patient reported a history of AUD, drinking 6-10 drinks/day for 7 years. With diagnosis of liver disease in October 2022, she struggled to stop use and maintain sobriety. Per patient, she has been able to abstain since July 2023. [facility] (anxiety). She noted triggers for alcohol have been stress or desire to have fun, and she noted use of grounding techniques and communication with her supports as part of her relapse prevention plan. She reported past abuse of opioids (pain medication, fentanyl, heroin) from 9741-1055. She self-admitted to an inpatient treatment facility in 2016, where she stayed for one month. She also received MAT (Suboxone) with Dr. Preston until 2019. She endorsed past use of tobacco and marijuana. Patient denied lifetime use of all other recreational or illicit drugs. 12/27/2022 - Transplant Psychosocial Evaluation Anxiety reported Discrepancies in alcohol use and PEth results Insurance/Financial Changes anticipated. Rec'ed for CD treatment and improved insight 08/01/2023 - ED Note Detox from alcohol SIPAT: Patient's endorsements fell in the Minimally Acceptable Candidate range (34). IMPRESSIONS & SUMMARY Mindy Wade is a 34 y.o. female who presents for a pre-transplant psychological evaluation. 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 Patient appeared knowledgeable about their diagnosis, treatment options, and recovery expectations.Post-transplant caregivers consist of family members, and support plan appears adequate. No cognitive concerns at this time. Patient reported generally good adherence to medical treatment as it relates to medications, engagement and appointments. Patient endorsed a polysubstance use history with is heavily linked to experience of anxiety. OUD emerged following use of prescription opioids and was ultimately treated with MAT and inpatient intervention, with last use in 2016. Patient transitioned to use of alcohol. She initially struggled to stop use after learning of her liver disease in October 2022 and has maintained sustained sobriety since July 2023 (>1year). She continues to engage in dual diagnosis treatment with psychiatryand counselor support. She reported a commitment to sobriety and identified an evolving relapse prevention plan. Current mental health symptoms indicate CHATO, and symptoms appear to be exacerbated by her health decline. No history of SI/SA and engages in adaptive coping strategies. Patient is considered to be moderate risk candidate for liver transplant from a psychological perspective at this time due to substance use and psychiatric concerns. Okay to proceed with evaluation. It is also expected that patient will continue engagement in dual diagnosis treatment for the duration of the transplant course. See below for full recommendations. Dx: CHATO AUD in sustained remission OUD in sustained remission Recommendations: Continue engagement in dual diagnosis treatment for AUD & CHATO. As psychotherapy and medication management have been helpful for psychiatric and substance use disorders, recommend ongoing engagement for overall symptom improvement, psychiatric stability, and relapse prevention. And changes to treatment planning or medications should be shared with the transplant team for continuity of care. Pain management. Patient is currently prescribed gabapentin for pain. Given history of opioid use disorder, a clear post-transplant pain management plan should be established prior to moving forward with listing. Thank you for the opportunity to participate in Mindy Wade's care. Impressions and recommendations will be discussed with the transplant team. Please contact me with any additional questions or concerns. ANNMARIE MOORE PsyD Clinical Psychologist TRANSPLANT PSYCH NOTEWRITER: [facility] Psychology, Pre-Transplant: Pre-Surgical Evaluation: 02 Yes Location: 01 Outpatient SIPAT Ratin Minimally Acceptable Decision: 02 Acceptable Candidate - With Stipulations Acceptable Candidate - With Stipulations: 01 CD Treatment and 08 Alternate Pain Management Discussion (Hx of OUD) documented in this encounter Plan of Treatment Not on file documented as of this encounter Visit Diagnoses Diagnosis Generalized anxiety disorder- Primary Alcohol use disorder, severe, in sustained remission ([facility]) documented in this encounter Additional Health Concerns Assessment Noted Time PHQ-9 Depression Total Score: 13 11/04/ 025 2:00 PM EDT documented as of this encounter Care Teams Turner Machine Relationship Specialty Start Date End Date Yonatan Graves DO [address] [place] [address] PCP - General 09/02/23 Farida Ortega, CARDIAC CATH LAB MANAGER [address] [place] [address] Referring Physician Gastroenterology 09/02/23 documented as of this encounter
--- OUTSIDE RECORDS SUMMARY | 2024-11-25 13:30 | XMS_ITS | Encounter Summary ---
Author Organization [facility] y[facility] Address [address] [place] [address] Care Team Providers Care Solar Sales Consultant Name Role Phone Kierra Guajardo MD Primary Care Provide r Reason for Visit * Reason Comments Vaginitis Encounter Details Date Type Department Care Team (Late st Contact Info) Description 11/25/2024 1:30 PM EDT Office Visit [facility] OBGYN [address] [place] [address] Pao Hanley, AIRPORT OPERATIONS SUPERVISOR [address] [facility] [address] [place] [address] Women's annual routine gynecological examination (Primary Dx); Vaginal irritation Social History Tobacco Use Types Packs/Day Years Used Date Smoking Tobacco: Former Cigarettes Smokeless Tobacco: Never Alcohol Use Standard Drinks/Week Comments Not Currently 0 (1 standard drink = 0.6 oz pure alcohol) 4-6 wine coolers daily for several years [facility] Utilities Answer Date Recorded In the past 12 months has [employer], oil, or water [employer] threatened to shut off services in your [...] medical care, and heating? Patient declined 08/05/2023 [facility] - Occupational Stress Questionnaire Answer Date Recorded [...] GED or equivalent No 08/05/2023 Preferred Language Wallisian 08/05/2023 PHQ-2 Answer Date Recorded Retired PHQ-9: Brief Depression Severity Measure Score 2 08/05/2023 Comments No Sex and Gender Information Value Date Recorded Sex Assigned at Not on file Legal Sex Female 10:56 AM EDT Gender Identity Not on file Sexual Orientation Not on file documented as of this encounter Last Filed Vital Signs Vital Sign Reading Time Taken Comments Blood Pressure 90/70 11/25/2024 1:22 PM EDT Pulse - - Temperature - - Respiratory Rate - - Oxygen Saturation - - Inhaled Oxygen Concentration - - Weight 70.3 kg (155 lb) 11/25/2024 1:22 PM EDT Height 165.1 cm (5' 5 ) 11/25/2024 1:22 PM EDT Body Mass Index 25.79 11/25/2024 1:22 PM EDT documented in this encounter Progress Notes * Pao Hanley, AIRPORT OPERATIONS SUPERVISOR - 11/25/2024 1:30 PM EDT Images from the original note were not included. Gynecologic Annual Exam Note Annual Vaginitis Subjective HPI Mindy Wade is a 34 y.o. female who presents for annual well woman exam as a established patient. There were no changes to her medical or surgical history since her last visit.. No LMP recorded. (Menstrual status: Other). absent Marital Status: . She is sexually active. She has nothad new partners.. STD testing recommendations have been explained to the patient and she does not desire STD testing. 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 Results: negative. HPV: negative. Last Completed Pap Smear Awaiting Completion PAP SMEAR (Every 3 Years) Order placed this encounter 11/25/2024 Order placed for LIQUID-BASED PAP SMEAR WITH HPV GENOTYPING IF ASCUS (CARMEN,COR,MAD) by Anibal Velpen, MA 11/11/2023 LIQUID-BASED PAP SMEAR WITH HPV GENOTYPING REGARDLESS OF INTERPRETATION (CARMEN,COR,MAD) History of abnormal Pap smear: yes - HPV Gardasil status:declines Family history of uterine, colon, breast, or ovarian cancer: yes - MGM colon Performs monthly Self-Breast Exam: yes Exercises Regularly:yes Feelings of Anxiety or Depression: yes - Tobacco Usage?: No Current Outpatient Medications: fluconazole (DIFLUCAN) 150 MG tablet, Take 1 tablet by mouth As Needed (yeast). Take one tablet nowand repeat in 3 days, Disp: 2 tablet, Rfl: 0 furosemide (LASIX) 40 MG tablet, Take 1 [...] Births 3 Health Maintenance Topic Date Due Hepatitis B (1 of 3 - 19+ 3-dose series) Never done Pneumococcal Vaccine 0-49 (1 of 2 - PCV) Never done TDAP/TD VACCINES (1 - Tdap) Never done ANNUAL PHYSICAL Never done COVID-19 Vaccine (2023- season) Never done Annual Gynecologic Pelvic and Breast Exam 11/11/2024 INFLUENZA VACCINE 12/21/2024 PAP SMEAR 11/10/2026 HEPATITIS C SCREENING Completed Past 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: [...] Cardiovascular: Negative. Gastrointestinal: Negative. Genitourinary: Positive for vaginal discharge. Psychiatric/Behavioral: The patient is nervous/anxious. I have reviewed and agree with the HPI, ROS, and historical information as entered above. Pao Neumann, AIRPORT OPERATIONS SUPERVISOR Objective BP 90/70 Ht 165.1 cm (65 ) Wt 70.3 kg (155 lb) BMI 25.79 kg/m?? Physical Exam Constitutional: Appearance: Normal appearance. Neck: Thyroid: No thyroid mass or thyromegaly. Pulmonary: Effort: Pulmonary effort is normal. Chest: Chest wall: No mass. Breasts: Right: Normal. No inverted nipple, mass, nipple discharge or skin change. Left: Tenderness present. No inverted nipple, mass, nipple discharge or skin change. Comments: Left breast tenderness 1-2 o'clocl, 4 cm from areola, no distinct mass palpable Abdominal: General: There is no distension. Palpations: Abdomen is soft. There is no mass. Tenderness: There is no abdominal tenderness. Hernia: No hernia is present. Genitourinary: General: Normal vulva. Labia: Right: No rash. Left: No rash. Vagina: Vaginal discharge present. Cervix: No cervical motion tenderness or lesion. Uterus: Normal. Adnexa: Right adnexa normal and left adnexa normal. Right: No mass or tenderness. Left: No mass or tenderness. Lymphadenopathy: Upper Body: Right upper body: No axillary adenopathy. Left upper body: No axillary adenopathy. Neurological: Mental Status: She is alert. Assessment and Plan Problem List Items Addressed This Visit None Visit Diagnoses Women's annual routine gynecological examination - Primary Relevant Orders LIQUID-BASED PAP SMEAR WITH HPV GENOTYPING IF ASCUS (CARMEN,COR,MAD) Vaginal irritation Relevant Orders NuSwab VG+, Lucille 6sp WP/IOANA negative. Will send cultures. Could be latex sensitivity as it seems to worsen with IC. She can try latex free condoms. We discussed the importance of condoms without fail as would be life threatening. She is still not having menses, all labs last year were normal. She will consultwith liver transplant team regarding this as well but likely related to severe liver disease. She has had left breast tenderness intermittent but ongoing for approx 1 week at this point. If this persists we will order a diagnostic mammogram but she prefers to hold off for now due to cost. 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 Reviewed pap guidelines. Reviewed monthly self breast exams. Instructed to call with lumps, pain, or breast discharge. Return if symptoms worsen or fail to improve, for Annual physical. Pao Hanley APRN 11/25/2024 documented in this encounter Plan of Treatment Not on file documented as of this encounter Procedures Procedure Name Priority Date/Time Associated Diagnosis Comments VAGINITIS PLUS (VG+) WITH LUCILLE (SIX SPECIES), NUSWAB Routine 11/25/2024 3:00 PM EDT Vaginal irritation LIQUID-BASED PAP SMEAR WITH HPV GENOTYPING IF ASCUS, [facility] (CARMEN,COR,MAD) Routine 11/25/2024 2:03 PM EDT Women's annual routine gynecological examination documented in this encounter Results * NuSwab VG+, Lucille 6sp (11/25/2024 3:00 PM EDT) Atopobium Vaginae Low - 0 Score [facility] BVAB 2 Low - 0 Score [facility] Megasphaera 1 Low - 0 Score [facility] Comment: Calculate total score by adding the 3 individual bacterial vaginosis (BV) marker scores together. Total score is interpreted as follows: Total score 0-1: Indicates the absence of BV. Total score 2: Indeterminate for BV. Additional clinical data should be evaluated to establish a diagnosis. Total score 3-6: Indicates the presence of BV. Lucille Albicans, ABIMBOLA Negative Negative [facility] Lucille Glabrata, ABIMBOLA Negative Negative [facility] C PARAPSILOSIS/TROP ICALIS Negative Negative [facility] Comment:This assay does not differentiate C. tropicalis and C. parapsilosis. Lucille lusitaniae, ABIMBOLA Negative Negative [facility] Lucille krusei, ABIMBOLA Negative Negative [facility] Trichomonas vaginosis Negative Negative [facility] Chlamydia trachomatis, ABIMBOLA Negative Negative [facility] Neisseria gonorrhoeae, ABIMBOLA Negative Negative [facility] Swab Cervix uteri structure / Unknown 11/25/2024 3:00 PM EDT 11/25/2024 Narrative [facility] (AMBULATORY) - 11/29/2024 6:08 AM EDT Test(s) 096895- Atopobium vaginae; 101460- BVAB 2; 775338- Megasphaera 1 was developed and its performance characteristics determined by [facility]. It has not been cleared or approved by the Food and Drug Administration. Test(s) 914621-Ozdzoif albicans, ABIMBOLA; 629407-Riicppi glabrata, ABIMBOLA; 845865-Y parapsilosis/tropicalis; 975177-Nokhgga lusitaniae, ABIMBOLA; 363652-Gvvqzub krusei, ABIMBOLA was developed and its performance characteristics determined by [facility]. It has not been cleared or approved by the Food and Drug Administration. Performed at: 01 - [address] [id number] Financial Service Representative: Aurora Yoo MD, Phone: [phone] Patient Fasting: N Pao Hanley APRN PATHOLOGY/CYTOLOGY ORDERA BLES Final Result [facility] (AMBULATORY) [address] [id number], [facility] [address] [place] [address], * LIQUID-BASED PAP SMEAR WITH HPV GENOTYPING IF ASCUS ([facility]EN,COR,MAD) (11/25/2024 2:03 PM EDT) Reference Lab Report [facility] [address] [place] [address] or [phone] Cristóbal Calvo M.D., Ad Operations Specialist PATIENT NAME LABORATORY NO. MINDY WHEATLEY [id number] AGE SEX SSN CLIENT REF # [facility] 34 1990 F [id number] Miguel A DEJESUS REQUESTING M.D. [place] [address] PAO HANLEY DATE COLLECTED DATE RECEIVED DATE REPORTED 11/25/2024 11/25/2024 11/26/2024 ThinPrep Pap with [facility] DIAGNOSIS: Negative for intraepithelial lesion or malignancy Multiple factors can influence accuracy of Pap tests; therefore, screening at regular intervals is necessary for early cancer detection. COMMENT: Benign cellular changes associated with inflammation are present. SPECIMEN ADEQUACY: SATISFACTORY FOR EVALUATION Transformation zone is absent or insufficient. SOURCE OF SPECIMEN: CERVICAL SLIDES: 1 CLINICAL HISTORY: Women's annual routine gynecological examination SALESPERSON PARTS: CARRIE MORENO (ASCP) CPT CODES: [id number] 11/26/2024 9:52 AM EDT [facility] ThinPrep Vial Cervix uteri structure / Unknown Collection / Unknown 11/25/2024 2:03 PM EDT 11/25/2024 2:03 PM EDT Pao Hanley AIRPORT OPERATIONS SUPERVISOR PATHOLOGY/CYTOLOGY ORDERA BLES Final Result [facility]
[address] [place] [address], documented in this encounter Visit Diagnoses Diagnosis Women's annual routine gynecological examination- Primary Vaginal irritation Pruritus of genital organs documented in this encounter Additional Health Concerns Assessment Noted Time PHQ-2 Depression Total Score: 2 08/05/19 24 9:47 AM EST documented as of this encounter Care Teams Solar Sales Consultant Relationship Specialty Start Date End Date Kierra Guajardo MD [address] [place] [address] PCP - General Internal Medicine 10/23/23 documented as of this encounter
--- OUTSIDE RECORDS SUMMARY | 2024-12-20 13:30 | XMS_ITS | Encounter Summary ---
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 [id number] Health Reason for Visit * Auth/Cert (Routine) Specialty Diagnoses / Procedures Referred By Roselyn mccolulm Referred To Contact Transplant Hepatology [facility] Liver Transplant at [id number] [place] [address] Phone: tel: fax: Referral ID Status Reason Start Date Expiration Date Visits Re quested Visits Authorized [id number] 1 1 Encounter Details Date Type Department Care Team (Late st Contact Info) Description 12/20/2024 1:30 PM EDT Office Visit [facility] Liver Transplant at [address] [place] [address] Quan Yates III, MD [facility] [address] Transplant [place] Surgery [id number] 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) (Primary Dx); 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); Immunosuppression (CMS-HCC) Social History Tobacco Use Types Packs/Day Years Used Date Smoking Tobacco: Former Cigarettes 0.3 1.2 0 07/22/2014 - 07/22/2015 Smokeless Tobacco: Never Alcohol Use Standard Drinks/Week Comments Not Currently 0 (1 standard drink = 0.6 oz pur e alcohol) PHQ-2 Answer Date Recorded PHQ-2 Total Score 0 12/20/2024 Yearly Questionnaire Answer Date Record ed Do you need any assistance w ith obtaining housing, meals, medication, transportation or medical equipment? No 12/20 Assistance needed for: Not on file 5 Yearly Questionnaire Answer Date Record ed Do you need any assistance w ith obtaining housing, meals, medication, transportation or medical equipment? No 12/20 Assistance needed for: Not on file 5 Yearly Questionnaire Answer Date Record ed Do you need any assistance w ith obtaining housing, meals, medication, transportation or medical equipment? No 12/20 Assistance needed for: Not on file 5 Comments No Sex and Gender Information Value Date Recorded Sex Assigned at Not on file Legal Sex Female 7:36 PM EDT Gender Identity Not on file Sexual Orientation Not on file documented as of this encounter Progress Notes * Quan Yates III, MD - 12/20/2024 1:30 PM EDT Liver Transplant Surgery Evaluation and Note Patient: Mindy Wade Age: 34 y.o. Reason for Visit: Liver Transplant Evaluation HPI: A 34 y.o. 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 Current MELD score is 15 and blood type is O. Lives in [facility]. in office today. Several children. No longer able to work -used to work for [employer] in [place] [facility] Prior abdominal surgeries include: exploratory surgery for endometriosis and appendectomy History of portal vein thrombosis: No Review of Systems: Review of systems performed. See LUZ MEJIA review. Vital Signs: BP Readings from Last 3 Encounters: 12/20/24 94/53 02/26/25 108/66 07/28/24 102/72 Wt Readings from Last 3 Encounters: 12/20/24 152 lb (68.9 kg) 08/18/24 149 lb (67.6 kg) 07/28/24 146 lb (66.2 kg) BMI: Estimated body mass index is 25.29 kg/m?? as calculated from the following: Height as of an earlier encounter on 12/20/24: 5' 5 (1.651 m). Weight as of an earlier encounter on 12/20/24: 152 lb (68.9 kg). BSA: Estimated body surface area is 1.78 meters squared as calculated from the following: Height as of an earlier encounter on 12/20/24: 5' 5 (1.651 m). Weight as of an earlier encounter on 12/20/24: 152 lb (68.9 kg). There were no vitals filed for this visit. The following portions of the patient history were reviewed and updated as appropriate: allergies, current medications, family, medical, surgical and social history and problem list. Past 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: Past 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: Diagnosis Date Abdominal hernia 02/21/2023 Alcoholic hepatitis Anxiety Ascites Chronic diarrhea 08/21/2022 Cirrhosis (CMS-HCC) Cystitis Depression Hepatitis C Past Surgical History: Past Surgical History: Procedure Laterality Date APPENDECTOMY CYST REMOVAL Right had a cystic lesion under right breast with hematoma and cyst per patient which was removed ESOPHAGOGASTRODUODENOSCOPY N/A 07/28/2024 Procedure: EGD; Surgeon: Mario Ramirez MD; Location: ENDOSCOPY; Service: Gastroenterology; Laterality: N/A; UPPER GASTROINTESTINAL ENDOSCOPY 09/21/2022 Family History: Family History Problem Relation Age of Onset Liver disease Father Cirrhosis Father Social History: Social History Socioeconomic History Marital status: Spouse name: Not on file Number of children: Not on file Years of education: Not on file Highest education level: Not on file Occupational History Not on file Tobacco Use Smoking status: Former Current packs/day: 0.00 Average packs/day: 0.3 packs/day for 1.2 years (0.3 ttl pk-yrs) Types: Cigarettes Start date: 07/22/2014 Quit date: 07/22/2015 Years since quittin.4 Smokeless tobacco: Never Vaping Use Vaping status: Never Used Substance and Sexual Activity Alcohol use: Not Currently Drug use: Not Currently Sexual activity: Yes Partners: Male control/protection: Condom Other Topics Concern Caffeine Use No Occupational Exposure No Exercise No Seat Belt Yes Social History Narrative Not on file Social Drivers of Health Financial Resource Strain: Patient Declined (08/05/2023) Received from [facility] Overall Financial Resource Strain (CARDIA) Difficulty of Paying Living Expenses: Patient declined Food Insecurity: No Food Insecurity (12/20/2024) Yearly Questionnaire Do you need any assistance with obtaining housing, meals, medication, transportation or medical equipment?: No Assistance needed for:: Not on file Transportation Needs: No Transportation Needs (12/20/2024) Yearly Questionnaire Do you need any assistance with obtaining housing, meals, medication, transportation or medical equipment?: No Assistance needed for:: Not on file Physical Activity: Inactive (08/05/2023) Received from [facility] Exercise Vital Sign Days of Exercise per Week: 0 days Minutes of Exercise per Session: 0 min Stress: Stress Concern Present (08/05/2023) Received from [facility] [employer] - Occupational Stress Questionnaire Feeling of Stress : Rather much Social Connections: Not At Risk (08/05/2023) Received from [facility] Family and Community Support If for any reason you need help with day-to-day activities such as bathing, preparing meals, shopping, managing finances, etc., do you get the help you need?: I don't need any help How often do you feel lonely or isolated from those around you?: Sometimes Intimate Partner Violence: Not At Risk (07/28/2024) Humiliation, Afraid, Rape, and Kick questionnaire Fear of Current or Ex-Partner: No Emotionally Abused: No Physically Abused: No Sexually Abused: No Housing Stability: Low Risk (12/20/2024) Yearly Questionnaire Do you need any assistance with obtaining housing, meals, medication, transportation or medical equipment?: No Assistance needed for:: Not on file Medications: Current Outpatient Medications Medication Sig furosemide TAKE 3 TABLETS(60 MG) BY MOUTH TWICE DAILY gabapentin Take 1 tablet (800 mg total) by mouth 3 times a day. ondansetron Take 1 tablet (4 mg total) by mouth every 8 hours as needed for Nausea. ondansetron Take 1 tablet (8 mg total) by mouth every 8 hours as needed for Nausea. spironolactone Take 3 tablets (150 mg total) by mouth 2 times a day. 150 mg AM and 100 mg PM No current facility-administered medications for this visit. Allergies: Allergies[1] Physical Exam: General: no apparent distress, conversant Eyes: icteric sclera, moist conjunctiva, pupils equal and round reactive to light HENT: atraumatic mucous membranes moist Neck: trachea midline, full range of motion, no thyromegaly or adenopathy Cardiac: regular rate and rhythm, no murmurs, rubs, and gallops Respiratory: clear to auscultation bilaterally, normal respiratory effort Gastrointestinal: abdomen is soft nontender, nondistended, no palpable masses Extremity: warm, no clubbing, cyanosis, or edema Lymph: no palpable lymphadenopathy Skin: no rashes or ulcers, normal temperature and turgor Psych: appropriate affect, alert and oriented to person, place, and time Labs: Lab name 12/20/24 1630 HEMOGLOBIN 12.3 HEMATOCRIT 35.2 MEAN CORPUSCULAR VOLUME 96.0 PLATELETS 111* SODIUM 138 POTASSIUM 3.4* CHLORIDE 105 CO2 24 BUN 9 CREATININE 0.75 GLUCOSE 73 PHOSPHORUS 2.4 ALBUMIN 3.8 ALBUMINKID 3.8 CALCIUM 9.1 AST 35 ALT 20 BILIRUBIN TOTAL 3.4* ALK PHOS 117 INR 1.3* MELD 3.0: 15 at 12/20/2024 4:30 PM Calculated from: Serum Creatinine: 0.75 mg/dL (Using min of 1 mg/dL) at 12/20/2024 4:30 PM Serum Sodium: 138 mmol/L (Using max of 137 mmol/L) at 12/20/2024 4:30 PM Total Bilirubin: 3.4 mg/dL at 12/20/2024 4:30 PM Serum Albumin: 3.8 g/dL (Using max of 3.5 g/dL) at 12/20/2024 4:30 PM INR(ratio): 1.3 at 12/20/2024 4:30 PM Age at listing (hypothetical): 34 years Sex: Female at 12/20/2024 4:30 PM ABO - O Imaging: MRI (08/10/24) 1. Multiple small LIRADS 3 and 4 lesions throughout the liver. 2. Cirrhotic morphology of liver with sequela of portal hypertension. I have personally reviewed the imaging and have noted the following: Cirrhotic liver - patent PV Assessment/Plan: A 34 y.o. female with ETOH/HCV cirrhosis decompensated by ascites/fluid overload, jaundice and fatigue. Use and allocation of SCD, CARPET INSTALLER HELPER, DCD and LDLT allografts discussed in detail. Great candidate for LDLT. Proceed with age appropriate evaluation. The risks and benefits, rationale, treatment plan and multidisciplinary evaluation of liver transplantation were discussed with the patient. Specifically, I explained living vs. donor transplantation, standard criteria vs. extended criteria livers. We discussed organ allocation and waiting time in this region. I reviewed our SRTR data as well as national SRTR data for liver transplantation. I reviewed the differences in graft and patient survival and discussed our 30 day, 1 year and 3 year survival results. We discussed the benefits of transplantation including a significant survival benefit as well as a quality of life benefit. I outlined the meaning of MELD score and its use in organ allocation. Use of extended criteria livers carries a higher rate of long-term graft loss and delayed graft function.I also explained the use and rationale of CDC or PHS increased high-risk livers which carry a risk of HIV, HBV or HCV infection of 1% with the use of nucleic acid testing. We also discussed the operative risks including hepatic artery stenosis (1%), portal vein stenosis (1%), primary non function (1-5%), seroma (10%), wound infection, reoperation (30%), bile duct stenosis and stricture (10%) or leak and finally from surgery (5%). 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 --- Akash Yatse III, MD Transplant Surgery (cell) marriage counselor Section of Transplantation [facility] 12/21/2024 4:25 PM [1] Allergies Allergen Reactions Amoxicillin Rash Morphine Rash Penicillins Rash documented in this encounter Plan of Treatment Not on file documented as of this encounter Visit Diagnoses Diagnosis 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)- Primary 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) Immunosuppression (CMS-HCC) documented in this encounter Additional Health Concerns Assessment Noted Time PHQ-9 Depression Total Score: 13 11/04/ 025 2:00 PM EDT documented as of this encounter Care Teams [employer] Safety Engineer Relationship Specialty Start Date End Date Yonatan Graves DO [address] [place] [address] PCP - General 09/02/23 Farida Ortega, FLAME DEGREASER [address] [place] [address] Referring Physician Gastroenterology 09/02/23 documented as of this encounter
--- OUTSIDE RECORDS SUMMARY | 2024-12-20 15:00 | XMS_ITS | Encounter Summary ---
Author Organization [facility] Address [address] [place] [id number] Care Team Providers Care Bottling Machine Operator Name Role Phone Yonatan Graves DO Primary Care Provider Farida Ortega ELECTRICAL INSTRUMENT TECHNICIAN Unavailable [phone] Source Comments This information has been disclosed [...] release of HIV test results or diagnoses. [id number] Reason for Referral * Imaging/Cardiovascular Scan (Routine) - Pending Verifications Specialty Diagnoses / Procedures Referred By Roselyn mccollum Referred To Contact Cardiology Diagnoses 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) Pre-transplant evaluation for chronic liver disease 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) Cardiovascular risk factor Pre-transplant evaluation for liver transplant Procedures Transthoracic Echo (TTE) Complete with Mario Russell MD [address] [place] [address] Phone: tel: fax: Referral ID Status Reason Start Date Expiration Date Visits Requested Visits Authorized [id number] Pending Verifications 12/20/2024 06/18/2025 1 0 * Imaging/Cardiovascular Scan (Routine) - Pending Verifications Specialty Diagnoses / Procedures Referred By Roselyn mccollum Referred To Contact Radiology Diagnoses 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) Procedures CT Chest WO contrast Mario Ramirez MD [address] [place] [address] Phone: tel: fax: Referral ID Status Reason Start Date Expiration Date Visits Requested Visits Authorized [id number] Pending Verifications 12/20/2024 06/18/2025 1 0 * Imaging/Cardiovascular Scan (Routine) - Pending Review Specialty Diagnoses / Procedures Referred By Roselyn mccollum Referred To Contact Radiology Diagnoses 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) Pre-transplant evaluation for liver transplant Procedures MRI Abdomen W and WO contrast Mario Ramirez MD [address] [place] [address] Phone: tel: fax: Referral ID Status Reason Start Date Expiration Date V isits Requested Visits Authorized [id number] Pending Review 12/20/2024 06/18/2025 1 1 Reason for Visit * Reason Comments Liver Transplant Evaluation * Auth/Cert (Routine) Specialty Diagnoses / Procedures Referred By Roselyn mccollum Referred To Contact Transplant Hepatology [facility] Liver Transplant at [address] [address] Phone: tel: fax: Referral ID Status Reason Start Date Expiration Date Visits Re quested Visits Authorized [id number] 1 1 Encounter Details Date Type Department Care Team (Late st Contact Info) Description 12/20/2024 3:00 PM EDT Office Visit [facility] Liver Transplant at [address] [phone] Mario Ramirez MD [address] [place] [address] 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) (Primary Dx); Pre-transplant evaluation for chronic liver disease; 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); Cardiovascular risk factor; Pre-transplant evaluation for liver transplant Social History Tobacco Use Types Packs/Day Years [...] 12/20 Assistance needed for: Not on file Yearly Questionnaire Answer Date Record ed Do [...] Sign Reading Time Taken Comments Blood Pressure 94/53 12/20/2024 1:42 PM EDT Pulse 60 12/20/2024 1:42 PM EDT Temperature 36.8 C (98.2 F) 12/20/2024 1:42 PM EDT Respiratory Rate - - Oxygen Saturation 100% 12/20/2024 1:42 PM EDT Inhaled Oxygen Concentration 100% 12/20/2024 1 :42 PM EDT Weight 68.9 kg (152 lb) 12/20/2024 1:42 PM EDT Height 165.1 cm (5' 5 ) 12/20/2024 1:42 PM EDT Body Mass Index 25.29 12/20/2024 1:42 PM EDT documented in this encounter Patient Instructions * Patient Instructions* Mario Ramirez MD - 12/20/2024 3:00 PM EDT Plan: 1. Update MELD labs today. 2. Immune to Hep A. Needs Hep B vaccination. Declines. 3. Continue HCC surveillance with AFP and ultrasound every 6 months. MRI due in January 2025. Need to review at HB conference. 4. EGD on annual basis. Repeat in Jul 2025. 5. Continue 2000 mg low sodium diet. [...] a week to maintain muscle mass. 12. Start transplant evaluation with labs, TTE, DEXA, and CT chest. 13. Return in 3 months. documented in this encounter Progress Notes * Mario Ramirez MD - 12/20/2024 3:00 PM EDT Subjective: Mindy Wade is a 34 y.o. female. With decompensated cirrhosis secondary to alcohol and chronic HCV with MELD score of 15 who is here for liver transplant evaluation. Her liver disease has been decompensated by ascites and jaundice. She was last seen in Jul 2024. She has a complex history of complex medical history of interstitial cystitis, urethral stenosis status post cystoscopy, left hydronephrosis, chronic hepatitis C with SVR. The patient has a history of chronic hepatitis C diagnosed many years ago and was treated with Harvoni in 2018 and achieved SVR. She contracted hepatitis C from prior IV drug use with last use in 2016. Is unclear as to how longshe had chronic hepatitis C before she was treated. She states that she intended rehabilitation andwas on Suboxone. She was doing well up until July 2022 when she started to feel more fatigued and developed nausea and ultimately developed jaundice. Because of this she sought medical attention and was diagnosed with liver disease. She then saw [facility] transplant center in October 2022 for transplant evaluation where she reported to continuing to drink alcohol 4-5 drinks a week even though she knew she was not supposed to drink any alcohol with the recent worsening of her liver function, cirrhosis and ascites. She was referred by her general surgeon to given potential need for liver transplant and she was being considered for cholecystectomy for biliary colic type of pain. Her transplant evaluation was deferred due to active alcohol with plans for her to follow-up with social work. Patient was evaluated by transplant secondary social studies teacher at in December 2022, where it was feltthat there was a discrepancy with how much alcohol the patient was reporting compared to the Peth test. The patient initially reported drinking 4 to 5 glasses of wine weekly, 1 drink in December 2022 with Peth in October 2022 of 1162/629. Peth 12/27/22 was higher, 1299/755, suggesting discrepancy in reportedalcohol use and lab supported use. She unfortunately continued drinking until Jul 2023 and then underwent detox at [facility]. She reports she has been sober since July 2023 and reports under planning her alcohol use. It appears she has insight today. She is following with a local technical operations specialist and psychiatry in [facility] including Dr. Guajardo. Her ascites is controlled with diuretics. No recent large-volume paracentesis. She is taking Lasix 60 mg twice daily and spironolactone 150 mg twice daily. Denies any hepatic encephalopathy or confusion. Still struggling with jaundice. Reports ongoing fatigue and inability to work. Most recent MRI in Jul 2024 with multiple LR3 /LR4 lesions in liver and trace ascites. Denies any recent GI bleeding. She is immune to hepatitis A but not immune to hepatitis B. EGD 07/2024: no EV or GV. The following portions of the patient's history were reviewed and updated as appropriate: allergies, current medications, past family history, past medical history, past social history, past surgicalhistory and problem list. Comprehensive review of systems performed. 12 point ROS was performed and negative except as noted above in the HPI. An extensive review of past records including prior office notes, labs, imaging, and pathology reports was performed from the Media tab, Care Everywhere and paper documents. Objective: Physical Exam Vitals and nursing note reviewed. Constitutional: General: She is not in acute distress. HENT: Head: Normocephalic and atraumatic. Right Ear: External ear normal. Left Ear: External ear normal. Nose: Nose normal. No congestion. Mouth/Throat: Mouth: Mucous membranes are moist. Pharynx: Oropharynx is clear. No oropharyngeal exudate. Eyes: General: Scleral icterus present. Conjunctiva/sclera: Conjunctivae normal. Pupils: Pupils are equal, round, and reactive to light. Cardiovascular: Rate and Rhythm: Normal rate and regular rhythm. Heart sounds: Normal heart sounds. No murmur heard. Pulmonary: Effort: Pulmonary effort is normal. No respiratory distress. Breath sounds: Normal breath sounds. Abdominal: General: Abdomen is flat. Bowel sounds are normal. There is no distension. Palpations: Abdomen is soft. Tenderness: There is no abdominal tenderness. Musculoskeletal: General: No swelling. Normal range of motion. Cervical back: Normal range of motion and neck supple. No rigidity. Skin: General: Skin is warm. Coloration: Skin is jaundiced. Neurological: General: No focal deficit present. Mental Status: She is alert and oriented to person, place, and time. Cranial Nerves: No cranial nerve deficit. Comments: No asterixis Psychiatric: Mood and Affect: Mood normal. Thought Content: Thought content normal. Judgment: Judgment normal. Labs: The patient's recent laboratory results were reviewed. 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 1. Decompensated cirrhosis due to alcohol and chronic HCV: The patient has decompensated cirrhosis manifested by ascites and jaundice. Her ascites has improved but not completely resolved with high-dose diuretics and ongoing mild jaundice. Her MELD score is 15. She reports poor quality of life due to fatigue. She is now sober from alcohol since July 2023. Due to her complicated history as documented above, she was required to have 1 year of sobriety for reconsideration of liver transplant and has completed. She appears to have insight into her alcohol use disorder and is actively following with technical operations specialist in [facility]. Update MELD labs today. Immune to Hep A. Needs Hep B vaccination. Declines. Continue HCC surveillance with AFP and ultrasound every 6 months. MRI duein January 2025. Need to review at HB conference. EGD on annual basis. Repeat in Jul 2025. Continue 2000 mg low sodium diet. Recommend diet high in protein. Continue current diuretics - lasix 60 mg BID and aldactone 150 mg BID. No evidence of HE. Recommend regular vaccinations with your PCP including flu, pneumonia, and shingles vaccination. Please avoid non-steroidal anti-inflammatory medications such as ibuprofen (Advil), naproxen. Also, please limit acetaminophen to 2000 mg daily. Please do not drink any alcohol. Please continue to exercise - such as walking - 3-4 times a week to maintain muscle mass. Start transplant evaluation with labs, TTE, DEXA, and CT chest. Return in 3 months. Plan: 1. Update MELD labs today. 2. Immune to Hep A. Needs Hep B vaccination. Declines. 3. Continue HCC surveillance with AFP and ultrasound every 6 months. MRI due in January 2025. Need to review at HB conference. 4. EGD on annual basis. Repeat in Jul 2025. 5. Continue 2000 mg low sodium diet. [...] a week to maintain muscle mass. 12. Start transplant evaluation with labs, TTE, DEXA, and CT chest. 13. Return in 3 months. This note was completely edited, written and [...] medical patient. I have reviewed all prior notes including most recent from the patient's PCP and other medical consultants. I have reviewed interval / recent lab work including: CBC, renal,hepatic, INR, viral studies, and all other labs for chronic liver disease relating to their medicalcondition. I have independently reviewed the patients recent radiologic imaging including any CT scans, MRI, ultrasound or endoscopic procedures. I spoke with the RN care administrative tech today in regardsto this patient. Finally, I have reviewed independently any interval liver pathology. Spent over 40minutes on the care of this patient today. * Abdullahi Cano RN - 12/20/2024 3:00 PM EDT The patient and support persons participated in multi-disciplinary transplant education class and all questions were answered about the process. The patient and support persons met with various members of the of the liver transplant team who addressed their questions and concerns in our multidisciplinary clinic. We discussed the evaluation process, the selection criteria for liver transplant wait-listing, and the risks and benefits of liver transplant. documented in this encounter Plan of Treatment Scheduled Orders Name Type Priority Associated Diagnoses Order Schedule DXA bone density axial skeleton Imaging Routine 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) 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) 1 Occurrences starting 12/20/2024 until 12/20/2025 MRI Abdomen W and WO contrast Imaging Routine 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) Pre-transplant evaluation for liver transplant 1 Occurrences starting 12/20/2024 until 12/20/2025 CT Chest WO contrast Imaging Routine 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) 1 Occurrences starting 12/20/2024 until 12/20/2025 Transthoracic Echo (TTE) Complete with Bubble Echocardiography Routine 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) Pre-transplant evaluation for chronic liver disease 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) Cardiovascular risk factor Pre-transplant evaluation for liver transplant 1 Occurrences starting 12/20/2024 until 12/20/2025 documented as of this encounter Procedures Procedure Name Priority Date/Time Associated Diagnosis Comments ECG 12-LEAD (MUSE) Routine 12/20/2024 2: 00 PM EDT Pre-transplant evaluation for chronic liver disease 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) Cardiovascular risk factor documented in this encounter Results * Hepatitis C RNA, Quant (12/20/2024 4:30 PM EDT) [facility] Units Not Detected IU/mL 12/21/2024 11:29 AM EDT [facility] Comment:Test methodology for HCV RNA quantification is an FDA-approved nucleic acid amplification assay. The Lower Limit of Quantitation (LLOQ) is 15 IU/mL. The linear range of the assay is 15-100,000,000 IU/mL. The Limit of Detection (LoD) is 12.0 IU/mL for EDTA plasma. The reference range is Not Detected. IU log10 See Note log 10 IU/mL 12/21/2024 11:29 AM EDT [facility] Comment:HCV RNA not detected . Plasma 12/20/2024 4:30 PM EDT 12/20/2024 6:30 PM EDT Mario Ramirez MD LAB BLOOD ORDERABLES Final Re sult Performing Organization Address [facility] Co de Phone Number [facility] [address] [place] [address] * Ethanol, Serum (12/20/2024 4:30 PM EDT) [facility] Ethanol <10 0 - 10 mg/dL 12/20/2024 5:41 PM EDT [facility] Serum 12/20/2024 4:30 PM EDT 12/20/2024 5:03 PM EDT Mario Ramirez MD LAB BLOOD ORDERABLES Final Re sult Performing Organization Address [facility] Co de Phone Number [facility] [address] * (ABNORMAL) Varicella zoster antibody, IgG (12/20/2024 4:30 PM EDT) [facility] Varicella IgG Positive( A) Negative S/CO 12/20/2024 5:51 PM EDT [facility] Comment:Result indicates the presence of detectable VZV IgG antibodies. A positive result is generally indicative of exposure to the pathogen or administration of specific immunoglobulins, but it is no indication of active infection or stage of disease. This test is not approved for determining vaccine-induced immunity to varicella zoster virus. VZV NUM 11.60(H) 0.00 - 0.99 S/CO 12/20/2024 5:51 PM EDT [facility] Serum 12/20/2024 4:30 PM EDT 12/20/2024 4:58 PM EDT Mario Ramirez MD LAB BLOOD ORDERABLES Final Re sult Performing Organization Address [facility] de Phone Number [facility] [address] [place] [address] * Toxoplasma gondii antibody, IgG (12/20/2024 4:30 PM EDT) [facility] Toxoplasma Gondii IgG <3.0 0.0 - 7.1 IU/mL 12/21/2024 2:25 AM EDT [facility] Comment: Negative <7.2 Equivocal 7.2 - 8.7 Positive >8.7 Serum 12/20/2024 4:30 PM EDT 12/21/2024 4:23 AM EDT Narrative [facility] - 12/21/2024 4:23 AM EDT PERFORMED AT: [address] [id number] SEW OUT OPERATOR: Parrish Anguiano, PhD PHONE: [phone] Mario Ramirez MD LAB BLOOD ORDERABLES Final Re sult Performing Organization Address [facility] de Phone Number [facility] [address] [place] [address] * QuantiFERON TB2 Ag (12/20/2024 4:30 PM EDT) [facility] QuantiFERON TB2 Ag Value 0.25 12/22/2024 10:22 AM EDT [facility] Plasma 12/20/2024 4:30 PM EDT 12/20/2024 5:03 PM EDT Mario Ramirez MD LAB BLOOD ORDERABLES Final Re sult Performing Organization Address [facility] Co de Phone Number [facility] [address] [facility]. [address] * QuantiFERON TB1 Ag (12/20/2024 4:30 PM EDT) QuantiFERON TB1 Ag Value 0.46 12/22/2024 10:22 AM EDT [facility] Plasma 12/20/2024 4:30 PM EDT 12/20/2024 5:03 PM EDT Mario Ramirez MD LAB BLOOD ORDERABLES Final Re sult Performing Organization Address [facility] Co de Phone Number [facility] [address] [facility]. [address] * QuantiFERON Nil (12/20/2024 4:30 PM EDT) Pathologist [facility] QuantiFERON Nil 0.06 10:22 AM EDT [facility] Plasma 12/20/2024 4:30 PM EDT 12/20/2024 5:03 PM EDT Mario Ramirez MD LAB BLOOD ORDERABLES Final Re sult Performing Organization Address [facility] Co de Phone Number [facility] [address] [facility]. [address] * (ABNORMAL) QuantiFERON Mitogen (12/20/2024 4:30 PM EDT) Pathologist [facility] QuantiFERON Interpretation Positive( A) Negative 12/22/2024 10:22 AM EDT [facility] Comment:Positive results are supportive of M. tuberculosis infection but cannot differentiate between active and latent tuberculosis infection. Cross reactivity with other mycobacterium species may occur. In patient population with low likelihood of tuberculosis, evaluate positive results critically. Positive results have a TB Antigen minus Nil value greater than or equal to 0.35 IU/mL in addition to the TB Antigen minus Nil value greater than or equal to 25% of the Nil value. QuantiFERON Mitogen 10.00 12/22/2024 10:22 AM EDT [facility] Plasma 12/20/2024 4:30 PM EDT 12/20/2024 5:03 PM EDT Narrative [facility] - 12/22/2024 10:22 AM EDT The Nil value reflects the background interferon gamma immune response of patient's blood sample. The mitogen tube serves as a control for the test. The QuantiFERON-TB Gold Plus result is determined by subtracting the Nil value from either TB antigen (Ag) tube. This test is designed to aid in the diagnosis of Mycobacterium tuberculosis infection, including Latent TB Infection (LTBI) and Tuberculosis (TB). A positive result suggests TB infection and should be followed by medical evaluation. A negative result does not preclude TB infection, especially in immunosuppressed states. Please see www.cdc.gov/tb. us Mario Ramirez MD LAB BLOOD ORDERABLES Final Re sult [facility] [address] [facility]. [place] [id number], [facility] * (ABNORMAL) MMR(IgG) Panel (Measles, Mumps, Rubella) (12/20/2024 4:30 PM EDT) Mumps IgG Positive 12/20/2024 5:52 PM EDT [facility] MUMPS IGG NUM 141.00(H) 0.0 - 8.9 U/mL 12/20/2024 5:52 PM EDT [facility] Rubella IgG Scr Positive 12/20/2024 5:52 PM EDT [facility] RUB NUM 4.94(H) 0.0 - 0.8 INDEX 12/20/2024 5:52 PM EDT [facility] Rubeola Ab, IgG Positive 12/20/2024 5:52 PM EDT [facility] RUB IGG NUM >300.00(H) 0.00 - 13.40 U/mL 12/20/2024 5:52 PM EDT [facility] Serum 12/20/2024 4:30 PM EDT 12/20/2024 4:58 PM EDT Narrative [facility] - 12/20/2024 5:52 PM EDT Presence of detectable measles virus IgG antibodies. A positive result generally indicates exposure to measles virus or previous vaccination. Presence of detectable mumps virus IgG antibodies. A positive result generally indicates past exposure to mumps virus or previous vaccination. Sample is considered positive for IgG antibodies to rubella virus. Mario Ramirez MD LAB BLOOD ORDERABLES Final Re sult Performing Organization Address [facility]/ZIP Co de Phone Number [facility] [address] [facility]. [address] * (ABNORMAL) Vitamin D 25 hydroxy (12/20/2024 4:30 PM EDT) [facility] Vit D, 25-Hydroxy 28.0(L) 30.0 - 100.0 ng/mL 12/20/2024 5:50 PM EDT [facility] Comment: Vitamin D deficiency has been defined by the [place] of [employer] (IOM) and an Endocrine Society practice guideline as a level of serum 25-OH Vitamin D less than 20 ng/mL. The Endocrine Society went on to further define Vitamin D insufficiency as a level between 21-29 ng/mL. 1) IOM. 2011 Dietary reference intakes for calcium and D. Norris D.C: The National Academies Press 2) Kamari MF, Yvette RIVERA, Billie SPANN, et al. Evaluation, treatment, and prevention of Vitamin D deficiency: an Endocrine Society clinical practice guideline. JCEM. 2010; 96(7):1911-30. Serum 12/20/2024 4:30 PM EDT 12/20/2024 4:58 PM EDT Mario Ramirez MD LAB BLOOD ORDERABLES Final Re sult Performing Organization Address City/[facility]/ZIP Co de Phone Number [facility] [address] [facility]. [address] * TSH (Thyroid Stimulating Hormone) (12/20/2024 4:30 PM EDT) TSH 1.26 0.45 - 4.12 uIU/mL 12/20/2024 5:54 [address] EDT [facility] Serum 12/20/2024 4:30 PM EDT 12/20/2024 4:58 PM EDT Mario Ramirez MD LAB BLOOD ORDERABLES Final Re sult Performing Organization Address City/[facility]/ZIP Co de Phone Number [facility] [address] [facility]. [address] * Syphilis Screening (Trepia) (12/20/2024 4:30 PM EDT) Treponema Pallidum Negative Negative 12/20/2024 5:[address] [facility] Comment: No serological evidence of infection with Treponema pallidum (incubating or early primary syphilis cannot be excluded). Serum 12/20/2024 4:30 PM EDT 12/20/2024 4:58 PM EDT Mario Ramirez MD LAB BLOOD ORDERABLES Final Re sult Performing Organization Address [facility] Co de Phone Number [facility] [address] [facility]. [address] * Strongyloides Ab (12/20/2024 4:30 PM EDT) Strongyloides Ab Negative Negative 12/22/19 11:40 [address]T [facility] Serum 12/20/2024 4:30 PM EDT 12/21/2024 3:07 PM EDT Narrative [facility] - 12/21/2024 3:07 PM EDT PERFORMED AT: [facility] [address] [id number] SEW OUT OPERATOR: Chasity Barnard MD PHONE: [phone] Mario Ramirez MD LAB BLOOD ORDERABLES Final Re sult [facility] [address] * Nicotine(Cotinine), Qual, Urine (12/20/2024 4:30 PM EDT) Cotinine, UR Negative Negative 12/21/2024 8:21 [address] EDT [facility] Urine 12/20/2024 4:30 PM EDT 12/20/2024 5:03 PM EDT Mario Ramirez MD URINE ORDERABLES Final Result [facility] [address] [facility]. [address] * (ABNORMAL) Lipid Profile (12/20/2024 4:30 PM EDT) Non-HDL Cholesterol, Calculated 109 0 - 129 mg/dL 12/20/2024 5:32 PM EDT [facility] Comment: Desirable: < 130 mg/dL Above Desirable: 130-159 mg/dL Borderline High: 160-189 mg/dL High: 190-219 mg/dL Very High: > 219 mg/dL Cholesterol, Total 152 0 - 200 mg/dL 12/20/2024 5:32 PM EDT [facility] Triglycerides 54 10 - 149 mg/dL 12/20/2024 5:32 PM EDT [facility] HDL 43(L) 60 - 92 mg/dL 12/20/2024 5:32 PM EDT [facility] Comment: LIPID PROFILE INTERPRETATION CHOLESTEROL,TOTAL(mg/dL) DESIRABLE: < 200 BORDERLINE HIGH RISK: 200 - 239 HIGH RISK(UNDESIRABLE): =/> 240 LDL CHOLESTEROL(mg/dL) OPTIMAL: < 100 NEAR HIGH OPTIMAL: 100 - 129 BORDERLINE HIGH RISK: 130 - 159 HIGH RISK: 160 - 189 VERY HIGH RISK: =/> 190 HDL CHOLESTEROL(mg/dL) HIGH RISK(UNDESIRABLE): < 40 BORDERLINE: 40 - 59 LOW RISK (DESIRABLE): => 60 TRIGLYCERIDES (mg/dL) NORMAL(DESIRABLE): < 150 BORDERLINE HIGH RISK: 150 - 199 HIGH RISK: 200 - 499 VERY HIGH RISK: =/> 500 Based on the guidlines of the National Cholesterol Education Program (NCEP). Assumes sample obtained after a 9- to 12- hour fast. LDL Cholesterol 98 mg/dL 5:32 PM EDT [facility] Plasma 12/20/2024 4:30 PM EDT 12/20/2024 4:58 PM EDT Narrative [facility] - 12/20/2024 5:32 PM EDT Must the patient be fasting for this test?->No LDL cholesterol calculated using the Friedewald equation. Mario Ramirez MD LAB BLOOD ORDERABLES Final Re sult Performing Organization Address City/[facility]/ZIP Co de Phone Number [facility] [address] [facility]. [address] * (ABNORMAL) Iron Studies (Iron + TIBC) (12/20/2024 4:30 PM EDT) Iron 312(H) 50 - 212 ug/dL 12/20/2024 5:42 PM EDT [facility] % Iron Saturation 56.5(H) 15.0 - 55.0 % 12/20/2024 5:42 [address] ED[address] [facility] TIBC 552(H) 265 - 497 ug/dL 12/20/2024 5:42 [address] [facility] Serum 12/20/2024 4:30 PM EDT 12/20/2024 4:58 PM EDT Mario Ramirez MD LAB BLOOD ORDERABLES Final Re sult [facility] [address] [facility]. [address] * IgA (12/20/2024 4:30 PM EDT) IgA 365.0 70.0 - 400.0 mg/dL 12/21/2024 8:18 AM EDT [facility] Comment:Please interpret the se findings in conjunction with clinical findings, protein electrophoresis, and immunotyping/immunofixation results. Serum 12/20/2024 4:30 PM EDT 12/20/2024 4:58 PM EDT Mario Ramirez MD LAB BLOOD ORDERABLES Final Re sult [facility] [address] [facility] [place]. [address] * HIV-1 and HIV-2 Antibodies w/Reflex (12/20/2024 4:30 PM EDT) HIV 1+2 AB/AGN Nonreactive Nonreactive 12/20/2024 5:53 PM EDT [facility] Serum 12/20/2024 4:30 PM EDT 12/20/2024 4:58 PM EDT Narrative [facility] - 12/20/2024 5:53 PM EDT \HIVRNR Mario Ramirez MD LAB BLOOD ORDERABLES Final Re sult Performing Organization Address [facility]/ZIP Co de Phone Number [facility] [address] [facility]. [address] * (ABNORMAL) Hepatitis C antibody (12/20/2024 4:30 PM EDT) Pathologist [facility] HCV Ab Reactive( A) Nonreactive 12/20/2024 6:01 PM EDT [facility] Comment: Health Department notified in accordance with reportable infectious disease guidelines. Health Department notified in accordance with reportable infectious disease guidelines. Serum 12/20/2024 4:30 PM EDT 12/20/2024 4:58 PM EDT [facility]arr[facility] - 12/20/2024 6:01 PM EDT Presumptive evidence of antibodies to HCV: follow CDC recommendations for supplemental testing. Mario Ramirez MD LAB BLOOD ORDERABLES Final Re sult Performing Organization Address City/[facility]/ZIP Co de Phone Number [facility] [address] [facility]. [address] * Hepatitis B Core Antibody (12/20/2024 4:30 PM EDT) Hep B Core Total Ab Nonreactive Nonreactive 12/20/2024 5:52 PM ED[address] [facility] Comment:Health Department no tified in accordance with reportable infectious disease guidelines. Serum 12/20/2024 4:30 PM EDT 12/20/2024 4:58 PM EDT [facility] - 12/20/2024 5:52 PM EDT A nonreactive final interpretation indicates that anti-HBc antibodies were not detected in the sample; it is possible that the individual is not infected with HBV. Mario Ramirez MD LAB BLOOD ORDERABLES Final Re sult Performing Organization Address [facility] Co de Phone Number [facility] [address] [facility]. [address] * Hepatitis B surface antibody (12/20/2024 4:30 PM EDT) Hep B S Ab Nonreactive Nonreactive 12/20/2024 6:05 PM [address] [facility] HBSAB NUMBER 5.92 0.00 - 7.99 mIU/mL 12/20/2024 6:05 [address] [facility] Serum 12/20/2024 4:30 PM EDT 12/20/2024 4:58 PM EDT [facility] - 12/20/2024 6:05 PM EDT Individual is considered not immune to HBV infection. Mario Ramirez MD LAB BLOOD ORDERABLES Final Re sult Performing Organization Address [facility] Co de Phone Number [facility] [address] [facility]. [address] * Hepatitis B surface antigen (12/20/2024 4:30 PM EDT) Hep B Surface Ag Nonreactive Nonreactive 12/20/2024 5:57 PM ED[address] [facility] Comment:Health Department no tified in accordance with reportable infectious disease guidelines. Serum 12/20/2024 4:30 PM EDT 12/20/2024 4:58 PM EDT Narrative [facility] - 12/20/2024 5:57 PM EDT Specimen is considered negative for HBsAg. us Mario Ramirez MD LAB BLOOD ORDERABLES Final Re sult Performing Organization Address [facility] Co de Phone Number [facility] [address] [facility]. [address] * Hepatitis A Antibody Total (12/20/2024 4:30 PM EDT) Pathologist [facility] Anti-HAV Total (IgG + IgM) Nonreactive 12/20/2024 5:57 PM ED[address] [facility] Serum 12/20/2024 4:30 PM EDT 12/20/2024 4:58 PM EDT Narrative [facility] - 12/20/2024 5:57 PM EDT HAV antibodies not detected Mario Ramirez MD LAB BLOOD ORDERABLES Final Re sult Performing Organization Address [facility] de Phone Number [facility] [address] [facility]. [address] * Hemoglobin A1c (12/20/2024 4:30 PM EDT) Pathologist [facility] Hemoglobin A1C 4.4 4.0 - 5.6 % 12/21/2024 12:33 AM EDT [facility] Comment: Hemoglobin A1c Interpretation Guidelines: Normal: <5.7% Prediabetes: 5.7-6.4% Diabetes: >6.4% Diagnosis requires two independent tests unless clinical diagnosis is clear. Some clinical conditions, particularly anemias and hemoglobinopathies, may interfere with the diagnostic accuracy of hemoglobin A1c. The recommended goal for diabetic glycemic control (Hemoglobin A1c <7.0%) should be individualized based on duration of diabetes, age/life expectancy, comorbid conditions, known CVD or advanced microvascular complications, hypoglycemia unawareness, and other individual patient considerations. Whole Blood 12/20/2024 4:30 PM EDT 12/20/2024 4:58 PM EDT Mario Ramirez MD LAB BLOOD ORDERABLES Final Re sult [facility] [address] [facility]. [address] * Ferritin (12/20/2024 4:30 PM EDT) [facility] Ferritin 17.5 11.0 - 306.8 ng/mL 12/20/2024 5:55 PM ED[address] [facility] Serum 12/20/2024 4:30 PM EDT 12/20/2024 4:58 PM EDT Mario Ramirez MD LAB BLOOD ORDERABLES Final Re sult Performing Organization Address [facility] Co de Phone Number [facility] [address] [facility]. [address] * (ABNORMAL) F-Actin Smooth Muscle Ab (12/20/2024 4:30 PM EDT) [facility] F-Actin Smooth Muscle IgG 48(H) 0 - 19 Units 12/21/2024 2:23 PM [address] [facility] Comment: Negative 0 - 19 Weak positive 20 - 30 Moderate to strong positive >30 Actin Antibodies are found in 52-85% of patients with autoimmune hepatitis or chronic active hepatitis and in 22% of patients with primary biliary cirrhosis. Serum 12/20/2024 4:30 PM EDT 12/21/2024 3:07 PM EDT Narrative [facility] - 12/21/2024 3:07 PM EDT PERFORMED AT: [facility] [address] [id number] SEW OUT OPERATOR: Parrish Anguiano, PhD PHONE: [phone] Mario Ramirez MD LAB BLOOD ORDERABLES Final Re sult Performing Organization Address [facility] Co de Phone Number [facility] [address] * (ABNORMAL) Vanessa-Jackson virus VCA IgG Antibody (12/20/2024 4:30 PM EDT) [facility] EBV VCA IgG Positive( A) Negative 12/20/2024 5:53 [address] [facility] Comment:Presence of detectab le VCA IgG antibodies. A positive result indicates current or past exposure to Vanessa-Jackson virus. EBV IGG NUM >750.00(H ) 0.00 - 17.99 U/mL 12/20/2024 5:53 [address] ED[address] [facility] Serum 12/20/2024 4:30 PM EDT 12/20/2024 4:58 PM EDT Mario Ramirez MD LAB BLOOD ORDERABLES Final Re sult Performing Organization Address [facility] Co de Phone Number [facility] [address] [facility]. [address] * (ABNORMAL) CMV IgG Antibody (12/20/2024 4:30 PM EDT) CMV IgG Positive(A ) Negative 12/20/2024 5:51 [address] [facility] CMV IGG NUM >10.00(H) 0.00 - 0.59 U/mL 12/20/2024 5:51 [address] [facility] Serum 12/20/2024 4:30 PM EDT 12/20/2024 4:58 PM EDT Mario Ramirez MD LAB BLOOD ORDERABLES Final Re sult Performing Organization Address [facility] Co de Phone Number [facility] [address] [facility]. [address] * Ceruloplasmin (12/20/2024 4:30 PM EDT) Ceruloplasmin 20.5 18.0 - 58.0 mg/dL 12/20/2024 6:47 [address] [facility] Comment: Effective 03/25/2016: The units for ceruloplasmin have changed from mg/L to mg/dL. The new reference range is 18-58 mg/dL. Historical values can be converted from mg/L to mg/dL by dividing by a factor of 10. Serum 12/20/2024 4:30 PM EDT 12/20/2024 4:58 PM EDT Mario Ramirez MD LAB BLOOD ORDERABLES Final Re sult Performing Organization Address [facility]/ZIP Co de Phone Number [facility] [address] * Antimitochondrial antibody (12/20/2024 4:30 PM EDT) Anti-Mitochon Ab IFA <20.0 0.0 - 20.0 Units 12/21/2024 2:[address] [facility] Comment: Negative 0.0 - 20.0 Equivocal 20.1 - 24.9 Positive >24.9 Mitochondrial (M2) Antibodies are found in 90-96% of patients with primary biliary cirrhosis. Serum 12/20/2024 4:30 PM EDT 12/21/2024 3:07 PM EDT Narrative [facility] - 12/21/2024 3:07 PM EDT PERFORMED AT: [facility] [address] [id number] SEW OUT OPERATOR: Parrish Anguiano, PhD PHONE: [phone] Mario Ramirez MD LAB BLOOD ORDERABLES Final Re sult Performing Organization Address [facility] Co de Phone Number [facility] [address] * BLUE (IFA) with Titer (12/20/2024 4:30 PM EDT) BLUE Titer by IFA Negative 12/22/19 1:[address] [facility] Comment: Negative <1:80 Borderline 1:80 Positive >1:80 ICAP nomenclature: AC-0 For more information about Hep-2 cell patterns use ANApatterns.org, the official website for the International Consensus on Antinuclear Antibody (BLUE) Patterns (ICAP). Serum 12/20/2024 4:30 PM EDT 12/21/2024 3:07 PM EDT Narrative [facility] - 12/21/2024 3:07 PM EDT PERFORMED AT: [employer] [id number] SEW OUT OPERATOR: Parrish Anguiano, PhD PHONE: [phone] Mario Ramirez MD LAB BLOOD ORDERABLES Final Re sult [facility] [address] [place] [address], [facility] * Alpha 1 Antitrypsin AAT Quant & Mutation (12/20/2024 4:30 PM EDT) A-1 Antitrypsin 155 100 - 188 mg/dL 12/21/2024 3:45 AM EDT [facility] A-1 Antitrypsin Pheno MM 12/22/2024 7:[address] [facility] Comment: MM Phenotype is considered to be normal , producing normal serum levels of rvctu-0-xsfawdma inhibitor and not associated with clinical disease. Associated A1A total serum levels in other phenotypes and their incidence in the general population are shown in the table below. Phenotype Population % function A-1-AT Conc.* Incidence % compared to MM (Typical Range) MM 86.5% 100% (96 - 189) MS 8.0% 86% (83 - 161) MZ 3.9% 61% (60 - 111) FM 0.4% 100% (93 - 191) SZ 0.3% 41% (42 - 75) SS 0.1% 64% (62 - 119) ZZ 0.05% 19% (16 - 38) FS 0.05% 70% (70 - 128) FZ Unknown 46% (44 - 88) FF Unknown Unknown *A-1-AT concentration in the homozygous MM phenotype is taken as the reference normal. Percent deficiency in each phenotype is reported relative to this reference. Ranges used to confirm phenotype. Serum 12/20/2024 4:30 PM EDT 12/22/2024 8:23 PM EDT Narrative [facility] - 12/22/2024 8:23 PM EDT [facility] [address] [place], [place] [id number] SEW OUT OPERATOR: Parrish Anguiano, PHONE: [phone] PERFORMED AT: [facility] [id number] SEW OUT OPERATOR: Chasity Barnard MD PHONE: [phone] us Mario Ramirez MD LAB BLOOD ORDERABLES Final Re sult [facility] [address] [place] [address], [facility] * Phosphatidylethanol Confirmation, B (12/20/2024 4:30 PM EDT) PETH 16:0/18.1 (POPETH) <10 Cutoff: 10 ng/mL 12/23/2024 12:[address] [facility] Comment: Phosphatidylethanol (PEth) homologues result [...] PETH 16:0/18.2 (PLPETH) <10 Cutoff: 10 ng/mL 12/23/2024 12:[address] [facility] Comment: PEth 16:0/18:2 (PLPEth) Reference ranges are not well established PEth Interpretation Negative. 12/23 12:[address] [facility] Comment: ADDITIONAL INFORMATION This report is intended for use in clinical monitoring and management of patients. It is not intended for use in employment-related testing. This test was developed and its performance characteristics determined by [facility] in a manner consistent with CLIA requirements. This test has not been cleared or approved by the U.S. Food and Drug Administration. Test Performed by: [facility] [address] [address] [place] [address] Vocational Guidance Counselor: Alexia David Ph.D.; CLIA# [id number] Whole Blood 12/20/2024 4:30 PM EDT 12/23/2024 12:28 PM EDT Mario Ramirez MD LAB BLOOD ORDERABLES Final Re sult [facility] [address] [facility] [place]. [place] [id number] * Urine Drug Screen, Comprehensive Panel Scrn/Confirmation (12/20/2024 4:30 PM EDT) BARBITURATES NOT PRESENT 12/22/2024 12:[address] [facility] BENZODIAZEPINES NOT PRESENT 12/23/19 12:[address] [facility] CANNABINOIDS NOT PRESENT 12/22/2024 12:37 [address] [facility] HAND STRIPPER STIMULANTS NOT PRESENT 12:37 [address] [facility] OPIOID ANALGESICS NOT PRESENT 2024 12:[address] [facility] OPIOID ANTAGONISTS NOT PRESENT 12/22 12:[address] [facility] SEDATIVES/MUSCLE RELAXANTS NOT PRESENT 12/22/2024 12:[address] [facility] TRICYCLIC ANTIDEPRESSANTS NOT PRESENT 12/22/2024 12:[address] [facility] Creatinine, Ur 88.90 mg/dL 12/21/2024 11:24 AM EDT [facility] Comment:Reference range not established for this test. pH 7.6 4.7 - 7.8 12/21/2024 11:[address] EDT [facility] Specific [place] 1.006 1.003 - 1.035 12/21/2024 11:[address] [facility] Urine 12/20/2024 4:30 PM EDT 12/20/2024 5:03 PM EDT Narrative [facility] - 12/22/2024 12:37 PM EDT This test has been developed and its performance characteristics determined by [facility] which is certified under the Clinical Laboratory Improvement Amendment of 1988 (CLIA-88) to perform high complexity testing. The test has not been cleared or approved by the US Food and Drug Administration (FDA). The FDA has determined that such clearance is not necessary. The test should be used for clinical purposes and is not regarded as investigational. us Mario Ramirez MD URINE ORDERABLES Final Result Performing Organization Address City/[facility]/ZIP Co de Phone Number [facility] [address] [place] [address]. [address] * Antibody screen (12/20/2024 4:30 PM EDT) Antibody Screen Negative 12/20/2024 5:[address] [facility] Blood 12/20/2024 4:30 PM EDT 12/20/2024 4:56 PM EDT Narrative [facility] - 12/20/2024 5:38 PM EDT Testing performed by [facility] Transfusion Service Mario Ramirez MD BLOOD BANK TEST ORDERABLES Fi nal Result Performing Organization Address [facility] Co de Phone Number [facility] [address] [facility]. [address] * ABO/Rh (12/20/2024 4:30 PM EDT) ABO Grouping O 12/20/2024 5:[address] [facility] Rh Type Positive 12/20/2024 5:19 PM EDT [facility] Blood 12/20/2024 4:30 PM EDT 12/20/2024 4:56 PM EDT Mario Ramirez MD BLOOD BANK TEST ORDERABLES Fi nal Result Performing Organization Address City/[facility] Co de Phone Number [facility] [address] [facility]. [address] * AFP tumor marker (12/20/2024 4:30 PM EDT) AFP-Tumor Marker 5.2 0.0 - 9.0 ng/mL 12/20/2024 5:[address] [facility] Serum 12/20/2024 4:30 PM EDT 12/20/2024 4:58 PM EDT Narrative [facility] - 12/20/2024 5:42 PM EDT The testing method for AFP is a chemiluminescent immunoassay manufactured by [employer] Concentrations of AFP obtained by different assay methods or kits may vary and cannot be used interchangeably. AFP results cannot be interpreted as absolute evidence of the presence or absence of malignant disease. Mario Ramirez MD LAB BLOOD ORDERABLES Final Re sult Performing Organization Address [facility] Co de Phone Number [facility] [address] [facility]. [address] * (ABNORMAL) Protime-INR (12/20/2024 4:30 PM EDT) Protime 16.7(H) 12.1 - 15.1 seconds 12/20/2024 5:[address] [facility] INR 1.3(H) 0.9 - 1.1 12/20/2024 5:[address] [facility] Comment: RECOMMENDED THERAPEUTIC RANGES USING INR : Stable oral anticoagulant therapy: 2.0 - 3.0 Mechanical prosthetic heart valve: 2.5 - 3.5 Recurrent acute myocardial infarction: 2.5 - 3.5 Plasma 12/20/2024 4:30 PM EDT 12/20/2024 4:57 PM EDT Mario Ramirez MD LAB BLOOD ORDERABLES Final Re sult Performing Organization Address City/[facility]/ZIP Co de Phone Number [facility] [address] [facility]. [address] * (ABNORMAL) Hepatic Function Panel (12/20/2024 4:30 PM EDT) Total Bilirubin 3.4(H) 0.0 - 1.5 mg/dL 12/20/2024 5:[address] [facility] Bilirubin, Direct 0.78(H) 0.00 - 0.40 mg/dL 12/20/2024 5:[address] [facility] AST 35 13 - 39 U/L 12/20/2024 5:[address] [facility] ALT 20 7 - 52 U/L 12/20/2024 5:[address] [facility] Alkaline Phosphatase 117 36 - 125 U/L 12/20/2024 5:[address] [facility] Total Protein 7.0 6.4 - 8.9 g/dL 12/20/2024 5:[address] [facility] Albumin 3.8 3.5 - 5.7 g/dL 12/20/2024 5:[address] [facility] Bilirubin, Indirect 2.62(H) 0.00 - 1.10 mg/dL 12/20/2024 5:[address] [facility] Plasma 12/20/2024 4:30 PM EDT 12/20/2024 4:58 PM EDT us Mario Ramirez MD LAB BLOOD ORDERABLES Final Re sult [facility] [address] * (ABNORMAL) Renal Function Panel w/EGFR (12/20/2024 4:30 PM EDT) Sodium 138 133 - 146 mmol/L 12/20/2024 5:[address] [facility] Potassium 3.4(L) 3.5 - 5.3 mmol/L 12/20/2024 5:[address] [facility] Chloride 105 98 - 110 mmol/L 12/20/2024 5:[address] [facility] CO2 24 21 - 33 mmol/L 12/20/2024 5:[address] [facility] Anion Gap 9 3 - 16 mmol/L 12/20/2024 5:[address] [facility] BUN 9 7 - 25 mg/dL 12/20/2024 5:[address] [facility] Creatinine 0.75 0.60 - 1.30 mg/dL 12/20/2024 5:[address] [facility] Glucose 73 70 - 100 mg/dL 12/20/2024 5:[address] [facility] Calcium 9.1 8.6 - 10.3 mg/dL 12/20/2024 5:[address] [facility] Phosphorus 2.4 2.1 - 4.7 mg/dL 12/20/2024 5:[address] [facility] Albumin 3.8 3.5 - 5.7 g/dL 12/20/2024 5:[address] [facility] Osmolality, Calculated 283 278 - 305 mOsm/kg 12/20/2024 5:[address] [facility] EGFR >90 12/20/2024 5:[address] [facility] Comment: As of 2021, the [...] values should be interpreted as a trend. Below 90 mL/min/1.73m2, the patient may have renal disease. For additional information: www.kidney.org Plasma 12/20/2024 4:30 PM EDT 12/20/2024 4:58 PM EDT us Mario Ramirez MD LAB BLOOD ORDERABLES Final Re sult [facility] [address] [place], [place] [address] * (ABNORMAL) Differential (12/20/2024 4:30 PM EDT) Neutrophils Relative 37.0(L) 40.0 - 80.0 % 12/20/2024 5:[address] [facility] Lymphocytes Relative 33.7 15.0 - 45.0 % 12/20/2024 5:[address] [facility] Monocytes Relative 14.3(H) 0.0 - 12.0 % 12/20/2024 5:[address] [facility] Eosinophils Relative 13.8(H) 0.0 - 8.0 % 12/20/2024 5:[address] [facility] Basophils Relative 1.2(H) 0.0 - 1.0 % 12/20/2024 5:[address] [facility] nRBC 0 0 - 0 /100 WBC 12/20/2024 5:[address] [facility] Neutrophils Absolute 1,628 1,520 - 8,640 /uL 12/20/2024 5:[address] [facility] Lymphocytes Absolute 1,483 570 - 4,860 /uL 12/20/2024 5:[address] [facility] Monocytes Absolute 629 0 - 1,296 /uL 12/20/2024 5:[address] [facility] Eosinophils Absolute 607 0 - 864 /uL 12/20/2024 5:08 PM EDT [facility] Basophils Absolute 53 0 - 108 /uL 12/20/2024 5:08 PM EDT [facility] Whole Blood 12/20/2024 4:30 PM EDT 12/20/2024 4:58 PM EDT us Mario Ramirez MD LAB BLOOD ORDERABLES Final Re sult [facility] [address] * (ABNORMAL) CBC (12/20/2024 4:30 PM EDT) WBC 4.4 3.8 - 10.8 10E3/uL 12/20/2024 5:08 PM EDT [facility] RBC 3.66(L) 3.80 - 5.10 10E6/uL 12/20/2024 5:08 PM EDT [facility] Hemoglobin 12.3 11.7 - 15.5 g/dL 12/20/2024 5:08 PM EDT [facility] Hematocrit 35.2 35.0 - 45.0 % 12/20/2024 5:08 PM EDT [facility] MCV 96.0 80.0 - 100.0 fL 12/20/2024 5:08 PM EDT [facility] MCH 33.7(H) 27.0 - 33.0 pg 12/20/2024 5:08 PM EDT [facility] MCHC 35.1 32.0 - 36.0 g/dL 12/20/2024 5:08 PM EDT [facility] RDW 14.3 11.0 - 15.0 % 12/20/2024 5:08 PM EDT [facility] Platelets 111(L) 140 - 400 10E3/uL 12/20/2024 5:08 PM EDT [facility] MPV 8.8 7.5 - 11.5 fL 12/20/2024 5:08 PM EDT [facility] Whole Blood 12/20/2024 4:30 PM EDT 12/20/2024 4:58 PM EDT us Mario Ramirez MD LAB BLOOD ORDERABLES Final Re sult 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 Pre-transplant evaluation for chronic liver disease 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) Cardiovascular risk factor Pre-transplant evaluation for liver transplant 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) Pre-transplant evaluation for chronic liver disease 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) Pre-transplant evaluation for liver transplant documented in this encounter Additional Health Concerns Assessment Noted Time PHQ-9 Depression Total Score: 13 11/04/ 025 2:00 PM EDT documented as of this encounter Care Teams 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
--- OUTSIDE RECORDS SUMMARY | 2024-12-20 16:10 | XMS_ITS | Encounter Summary ---
Author Organization [facility] Address [address] [place] [id number] Care Team Providers Care Pipe Smoking Machine Offbearer Name Role Phone Yonatan Graves DO Primary Care Provider Farida Ortega CLIENT SERVICES ASSISTANT Unavailable [phone] Source Comments This information has been disclosed [...] release of HIV test results or diagnoses. [id number] Health Reason for Visit * Reason Comments Labs Only * Auth/Cert (Routine) Specialty Diagnoses / Procedures Referred By Roselyn mccollum Referred To Contact Transplant Hepatology [facility] Liver Transplant at [facility] [address] [facility] [address] [place] [address] Phone: tel: fax: Referral ID Status Reason Start Date Expiration Date Visits Re quested Visits Authorized [id number] 1 1 Encounter Details Date Type Department Care Team (Late st Contact Info) Description 12/20/2024 4:10 PM EDT Specimen [facility] [address] [place] [address] Mario Ramirez MD [address] 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) Pre-transplant evaluation for chronic liver disease 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) Pre-transplant evaluation for liver transplant TREPONEMA PALLIDUM AB WITH REFLEX Routine 12/20/2024 4:30 PM EDT 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) Pre-transplant evaluation for chronic liver disease 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) Pre-transplant evaluation for liver transplant PHOSPHATIDYLETHANOL CONFIRMATION, B Routine 12/20/2024 4:30 PM EDT 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) Pre-transplant evaluation for chronic liver disease 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) QUANTIFERON TB2 AG Routine 12/20/2024 4: 30 PM EDT 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) Pre-transplant evaluation for chronic liver disease 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) QUANTIFERON TB1 AG Routine 12/20/2024 4: 30 PM EDT 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) Pre-transplant evaluation for chronic liver disease 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) QUANTIFERON NIL Routine 12/20/2024 4:30 PM EDT 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) Pre-transplant evaluation for chronic liver disease 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) QUANTIFERON MITOGEN Routine 12/20/2024 4 :30 PM EDT 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) Pre-transplant evaluation for chronic liver disease 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) CMV IGG ANTIBODY Routine 12/20/2024 4:30 PM EDT 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) Pre-transplant evaluation for chronic liver disease 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) Pre-transplant evaluation for liver transplant URINE DRUG COMPREHENSIVE PANEL, CONFIRMATION Routine 12/20/2024 4:30 PM EDT 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) Pre-transplant evaluation for chronic liver disease 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) [id number] (AAT) QUANTITATION & MUTATION Routine 12/20/2024 4:30 PM EDT 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) Pre-transplant evaluation for chronic liver disease 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) Pre-transplant evaluation for liver transplant STRONGYLOIDES AB Routine 12/20/2024 4:30 PM EDT 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) Pre-transplant evaluation for chronic liver disease 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) HEPATIC FUNCTION PANEL Routine 5 4:30 PM EDT 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) Pre-transplant evaluation for chronic liver disease 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) Pre-transplant evaluation for liver transplant RENAL FUNCTION PANEL W/EGFR Routine 12/20/2024 4:30 PM EDT 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) Pre-transplant evaluation for chronic liver disease 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) Pre-transplant evaluation for liver transplant IRON STUDIES Routine 12/20/2024 4:30 PM EDT 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) Pre-transplant evaluation for chronic liver disease 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) Pre-transplant evaluation for liver transplant HEPATITIS B CORE ANTIBODY Routine 2024 4:30 PM EDT 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) Pre-transplant evaluation for chronic liver disease 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) Pre-transplant evaluation for liver transplant ETHANOL, SERUM Routine 12/20/2024 4:30 PM EDT 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) Pre-transplant evaluation for chronic liver disease 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) Pre-transplant evaluation for liver transplant F-ACTIN SMOOTH MUSCLE AB Routine 025 4:30 PM EDT 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) Pre-transplant evaluation for chronic liver disease 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) Pre-transplant evaluation for liver transplant BLUE (IFA) WITH TITER Routine 12/20/2024 4:30 PM EDT 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) Pre-transplant evaluation for chronic liver disease 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) HEPATITIS C ANTIBODY Routine 12/20/2024 4:30 PM EDT 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) Pre-transplant evaluation for chronic liver disease 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) Pre-transplant evaluation for liver transplant VANESSA-LOPEZ VIRUS VCA IGG AB Routine 12/20/2024 4:30 PM EDT 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) Pre-transplant evaluation for chronic liver disease 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) Pre-transplant evaluation for liver transplant NICOTINE(COTININE), QUAL, URINE Routine 12/20/2024 4:30 PM EDT 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) Pre-transplant evaluation for chronic liver disease 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) Pre-transplant evaluation for liver transplant CERULOPLASMIN Routine 12/20/2024 4:30 PM EDT 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) Pre-transplant evaluation for chronic liver disease 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) Pre-transplant evaluation for liver transplant AFP TUMOR MARKER Routine 12/20/2024 4:30 PM EDT 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) Pre-transplant evaluation for chronic liver disease 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) Pre-transplant evaluation for liver transplant ABO/RH Routine 12/20/2024 4:30 PM EDT 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) Pre-transplant evaluation for chronic liver disease 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) Pre-transplant evaluation for liver transplant HEPATITIS C RNA, QUANTITATIVE PCR Routine 12/20/2024 4:30 PM EDT 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) Pre-transplant evaluation for chronic liver disease 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) Pre-transplant evaluation for liver transplant VITAMIN D 25 HYDROXY Routine 12/20/2024 4:30 PM EDT 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) Pre-transplant evaluation for chronic liver disease 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) Pre-transplant evaluation for liver transplant ANTIMITOCHONDRIAL ANTIBODY Routine 12/20 4:30 PM EDT 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) Pre-transplant evaluation for chronic liver disease 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) Pre-transplant evaluation for liver transplant DIFFERENTIAL Routine 12/20/2024 4:30 PM EDT 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) Pre-transplant evaluation for chronic liver disease 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) TOXOPLASMA GONDII ANTIBODY, IGG Routine 12/20/2024 4:30 PM EDT 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) Pre-transplant evaluation for chronic liver disease 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) Pre-transplant evaluation for liver transplant HIV 1+2 ANTIBODY/ANTIGEN WITH REFLEX Routine 12/20/2024 4:30 PM EDT 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) Pre-transplant evaluation for chronic liver disease 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) Pre-transplant evaluation for liver transplant HEPATITIS B SURFACE ANTIBODY, QUANTITATIVE Routine 12/20/2024 4:30 PM EDT 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) Pre-transplant evaluation for chronic liver disease 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) Pre-transplant evaluation for liver transplant HEPATITIS B SURFACE ANTIGEN Routine 12/20/2024 4:30 PM EDT 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) Pre-transplant evaluation for chronic liver disease 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) Pre-transplant evaluation for liver transplant PROTIME-INR Routine 12/20/2024 4:30 PM EDT 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) Pre-transplant evaluation for chronic liver disease 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) Pre-transplant evaluation for liver transplant CBC Routine 12/20/2024 4:30 PM EDT 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) Pre-transplant evaluation for chronic liver disease 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) ANTIBODY SCREEN Routine 12/20/2024 4:30 PM EDT 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) Pre-transplant evaluation for chronic liver disease 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) Pre-transplant evaluation for liver transplant VARICELLA ZOSTER ANTIBODY, IGG Routine 12/20/2024 4:30 PM EDT 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) Pre-transplant evaluation for chronic liver disease 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) Pre-transplant evaluation for liver transplant TSH Routine 12/20/2024 4:30 PM EDT 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) Pre-transplant evaluation for chronic liver disease 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) Pre-transplant evaluation for liver transplant HEMOGLOBIN A1C Routine 12/20/2024 4:30 PM EDT 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) Pre-transplant evaluation for chronic liver disease 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) Pre-transplant evaluation for liver transplant IGA Routine 12/20/2024 4:30 PM EDT 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) Pre-transplant evaluation for chronic liver disease 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) Pre-transplant evaluation for liver transplant FERRITIN Routine 12/20/2024 4:30 PM EDT 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) Pre-transplant evaluation for chronic liver disease 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) Pre-transplant evaluation for liver transplant LIPID PANEL Routine 12/20/2024 4:30 PM EDT 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 The Lower Limit of Quantitation (LLOQ) is 15 IU/mL. The linear range of the assay is 15-100,000,000 IU/mL. The Limit of Detection (LoD) is 12.0 IU/mL for EDTA plasma. The reference range is Not Detected. IU log10 See Note log 10 IU/mL 12/21/2024 11:29 AM EDT [facility] Comment:HCV RNA not detected . Plasma 12/20/2024 4:30 PM EDT 12/20/2024 6:30 PM EDT Mario Ramirez MD LAB BLOOD ORDERABLES Final Re sult Performing Organization Address [facility] Co de Phone Number [facility] [address] [place] [address] * Ethanol, Serum (12/20/2024 4:30 PM EDT) [facility] Ethanol <10 0 - 10 mg/dL 12/20/2024 5:41 PM EDT [facility] Serum 12/20/2024 4:30 PM EDT 12/20/2024 5:03 PM EDT Mario Ramirez MD LAB BLOOD ORDERABLES Final Re sult Performing Organization Address [facility] de Phone Number [facility] [address] * (ABNORMAL) Varicella zoster antibody, IgG (12/20/2024 4:30 PM EDT) [facility] Varicella IgG Positive( A) Negative S/CO 12/20/2024 5:51 PM EDT [facility] Comment:Result indicates the presence of detectable VZV IgG antibodies. A positive result is generally indicative of exposure to the pathogen or administration of specific immunoglobulins, but it is no indication of active infection or stage of disease. This test is not approved for determining vaccine-induced immunity to varicella zoster virus. VZV NUM 11.60(H) 0.00 - 0.99 S/CO 12/20/2024 5:51 PM EDT [facility] Serum 12/20/2024 4:30 PM EDT 12/20/2024 4:58 PM EDT Mario Ramirez MD LAB BLOOD ORDERABLES Final Re sult Performing Organization Address [facility] Phone Number [facility] [address] [facility] * Toxoplasma gondii antibody, IgG (12/20/2024 4:30 PM EDT) Pathologist [facility] Toxoplasma Gondii IgG <3.0 0.0 - 7.1 IU/mL 12/21/2024 2:25 AM EDT [facility] Comment: Negative <7.2 Equivocal 7.2 - 8.7 Positive >8.7 Serum 12/20/2024 4:30 PM EDT 12/21/2024 4:23 AM EDT Narrative [facility] - 12/21/2024 4:23 AM EDT PERFORMED AT: [facility] [id number] BARBER APPRENTICE: Parrish Anguiano, PhD PHONE: [phone] Mario Ramirez MD LAB BLOOD ORDERABLES Final Re sult Performing Organization Address [facility] de Phone Number [facility] [address] [facility] * QuantiFERON TB2 Ag (12/20/2024 4:30 PM EDT) Pathologist [facility] QuantiFERON TB2 Ag Value 0.25 12/22/2024 10:22 AM EDT [facility] Plasma 12/20/2024 4:30 PM EDT 12/20/2024 5:03 PM EDT Mario Ramirez MD LAB BLOOD ORDERABLES Final Re sult Performing Organization Address City/[facility]/ZIP Co de Phone Number [facility] [address] [facility] * QuantiFERON TB1 Ag (12/20/2024 4:30 PM EDT) Pathologist [facility] QuantiFERON TB1 Ag Value 0.46 12/22/2024 10:22 AM EDT [facility] Plasma 12/20/2024 4:30 PM EDT 12/20/2024 5:03 PM EDT Mario Ramirez MD LAB BLOOD ORDERABLES Final Re sult Performing Organization Address [facility] Co de Phone Number [facility] [address] [facility] * QuantiFERON Nil (12/20/2024 4:30 PM EDT) [facility] QuantiFERON Nil 0.06 10:22 AM EDT [facility] Plasma 12/20/2024 4:30 PM EDT 12/20/2024 5:03 PM EDT Mario Ramierz MD LAB BLOOD ORDERABLES Final Re sult Performing Organization Address [facility] Co de Phone Number [facility] [address] [facility] * (ABNORMAL) QuantiFERON Mitogen (12/20/2024 4:30 PM EDT) Pathologist [facility] QuantiFERON Interpretation Positive( A) Negative 12/22/2024 10:22 AM EDT [facility] Comment:Positive results are supportive of M. [...] QuantiFERON Mitogen 10.00 12/22/2024 10:22 AM EDT [facility] Plasma 12/20/2024 4:30 PM EDT 12/20/2024 5:03 PM EDT Narrative [facility] - 12/22/2024 10:22 AM EDT The [...] MD LAB BLOOD ORDERABLES Final Re sult [facility] [address] [address], [facility] * (ABNORMAL) MMR(IgG) Panel (Measles, Mumps, Rubella) (12/20/2024 4:30 PM EDT) Mumps IgG Positive 12/20/2024 5:52 PM EDT [facility] MUMPS IGG NUM 141.00(H) 0.0 - 8.9 U/mL 12/20/2024 5:52 PM EDT [facility] Rubella IgG Scr Positive 12/20/2024 5:52 PM EDT [facility] RUB NUM 4.94(H) 0.0 - 0.8 INDEX 12/20/2024 5:52 PM EDT [facility] Rubeola Ab, IgG Positive 12/20/2024 5:52 PM EDT [facility] RUB IGG NUM >300.00(H) 0.00 - 13.40 U/mL 12/20/2024 5:52 PM EDT [facility] Serum 12/20/2024 4:30 PM EDT 12/20/2024 4:58 PM EDT Narrative [facility] - 12/20/2024 5:52 PM EDT Presence [...] ORDERABLES Final Re sult Performing Organization Address City/[facility]/ZIP Co de Phone Number [facility] [address] * (ABNORMAL) Vitamin D 25 hydroxy (12/20/2024 4:30 PM EDT) Vit D, 25-Hydroxy 28.0(L) 30.0 - 100.0 ng/mL 12/20/2024 5:50 PM EDT [facility] Comment: Vitamin D deficiency has been defined by the [place] of Medicine (IOM) and an Endocrine Society practice guideline as a level of serum 25-OH Vitamin D less than 20 ng/mL. The Endocrine Society went on to further define Vitamin D insufficiency as a level between 21-29 ng/mL. 1) IOM. 2011 Dietary reference intakes for calcium and D. Norris D.C: The National Academies Press 2) Kamari SOW, Yvette RIVERA, Billie SPANN, et al. Evaluation, treatment, and prevention of Vitamin D deficiency: an Endocrine Society clinical practice guideline. JCEM. 2010; 96(7):1911-30. Serum 12/20/2024 4:30 PM EDT 12/20/2024 4:58 PM EDT Mario Ramirez MD LAB BLOOD ORDERABLES Final Re sult Performing Organization Address City/[facility] Co de Phone Number [facility] [address] [facility] * TSH (Thyroid Stimulating Hormone) (12/20/2024 4:30 PM EDT) TSH 1.26 0.45 - 4.12 uIU/mL 12/20/2024 5:54 PM EDT [facility] Serum 12/20/2024 4:30 PM EDT 12/20/2024 4:58 PM EDT Mario Ramirez MD LAB BLOOD ORDERABLES Final Re sult Performing Organization Address [facility]/ZIP Co de Phone Number [facility] [address] * Syphilis Screening (Trepia) (12/20/2024 4:30 PM EDT) Treponema Pallidum Negative Negative 12/20/2024 5:56 PM EDT [facility] Comment: No serological evidence of infection with Treponema pallidum (incubating or early primary syphilis cannot be excluded). Serum 12/20/2024 4:30 PM EDT 12/20/2024 4:58 PM EDT Mario Ramirez MD LAB BLOOD ORDERABLES Final Re sult Performing Organization Address [facility] Co de Phone Number [facility] [address] [facility] * Strongyloides Ab (12/20/2024 4:30 PM EDT) Strongyloides Ab Negative Negative 12/22/19 11:40 AM EDT [facility] Serum 12/20/2024 4:30 PM EDT 12/21/2024 3:07 PM EDT Narrative [facility] - 12/21/2024 3:07 PM EDT PERFORMED AT: [facility] [id number] BARBER APPRENTICE: Chasity Barnard MD PHONE: [phone] Mario Ramirez MD LAB BLOOD ORDERABLES Final Re sult Performing Organization Address [facility]/ZIP Co de Phone Number [facility] [address] [facility] * Nicotine(Cotinine), Qual, Urine (12/20/2024 4:30 PM EDT) Cotinine, UR Negative Negative 12/21/2024 8:21 AM EDT [facility] Urine 12/20/2024 4:30 PM EDT 12/20/2024 5:03 PM EDT Mario Ramirez MD URINE ORDERABLES Final Result [facility] [address] [place] [address], [facility] * (ABNORMAL) Lipid Profile (12/20/2024 4:30 PM EDT) Non-HDL Cholesterol, Calculated 109 0 - 129 mg/dL 12/20/2024 5:32 PM EDT [facility] Comment: Desirable: < 130 mg/dL Above Desirable: 130-159 mg/dL Borderline High: 160-189 mg/dL High: 190-219 mg/dL Very High: > 219 mg/dL Cholesterol, Total 152 0 - 200 mg/dL 12/20/2024 5:32 PM EDT [facility] Triglycerides 54 10 - 149 mg/dL 12/20/2024 5:32 PM EDT [facility] HDL 43(L) 60 - 92 mg/dL 12/20/2024 5:32 PM EDT [facility] Comment: LIPID PROFILE INTERPRETATION CHOLESTEROL,TOTAL(mg/dL) DESIRABLE: [...] LDL Cholesterol 98 mg/dL 5:32 PM EDT [facility] Plasma 12/20/2024 4:30 PM EDT 12/20/2024 4:58 PM EDT Narrative [facility] - 12/20/2024 5:32 PM EDT Must the patient be fasting for this test?->No LDL cholesterol calculated using the Friedewald equation. Mario Ramirez MD LAB BLOOD ORDERABLES Final Re sult Performing Organization Address [facility] de Phone Number [facility] [address] [place] [address] * (ABNORMAL) Iron Studies (Iron + TIBC) (12/20/2024 4:30 PM EDT) Iron 312(H) 50 - 212 ug/dL 12/20/2024 5:42 PM EDT [facility] % Iron Saturation 56.5(H) 15.0 - 55.0 % 12/20/2024 5:42 PM EDT [facility] TIBC 552(H) 265 - 497 ug/dL 12/20/2024 5:42 PM EDT [facility] Serum 12/20/2024 4:30 PM EDT 12/20/2024 4:58 PM EDT Result [facility] Mario Ramirez MD LAB BLOOD ORDERABLES Final Re sult Performing Organization Address [facility] de Phone Number [facility] [address] [place] [address] * IgA (12/20/2024 4:30 PM EDT) IgA 365.0 70.0 - 400.0 mg/dL 12/21/2024 8:18 AM EDT [facility] Comment:Please interpret the se findings in conjunction with clinical findings, protein electrophoresis, and immunotyping/immunofixation results. Serum 12/20/2024 4:30 PM EDT 12/20/2024 4:58 PM EDT Mario Ramirez MD LAB BLOOD ORDERABLES Final Re sult [facility] [address] * HIV-1 and HIV-2 Antibodies w/Reflex (12/20/2024 4:30 PM EDT) HIV 1+2 AB/AGN Nonreactive Nonreactive 12/20/2024 5:53 PM EDT [facility] Serum 12/20/2024 4:30 PM EDT 12/20/2024 4:58 PM EDT Narrative [facility] - 12/20/2024 5:53 PM EDT \HIVRNR Mario Ramirez MD LAB BLOOD ORDERABLES Final Re sult Performing Organization Address City/[facility]/ZIP Co de Phone Number [facility] [address] [facility]. [address] * (ABNORMAL) Hepatitis C antibody (12/20/2024 4:30 PM EDT) Pathologist [facility] HCV Ab Reactive( A) Nonreactive 12/20/2024 6:01 PM EDT [facility] Comment: Health Department notified in accordance with reportable infectious disease guidelines. Health Department notified in accordance with reportable infectious disease guidelines. Serum 12/20/2024 4:30 PM EDT 12/20/2024 4:58 PM EDT Narrative [facility] - 12/20/2024 6:01 PM EDT Presumptive evidence of antibodies to HCV: follow CDC recommendations for supplemental testing. Mario Ramirez MD LAB BLOOD ORDERABLES Final Re sult [facility] [address] [facility]. [address] * Hepatitis B Core Antibody (12/20/2024 4:30 PM EDT) Hep B Core Total Ab Nonreactive Nonreactive 12/20/2024 5:52 PM EDT [facility] Comment:Health Department no tified in accordance with reportable infectious disease guidelines. Serum 12/20/2024 4:30 PM EDT 12/20/2024 4:58 PM EDT Narrative [facility] - 12/20/2024 5:52 PM EDT A nonreactive final interpretation indicates that anti-HBc antibodies were not detected in the sample; it is possible that the individual is not infected with HBV. Mario Ramirez MD LAB BLOOD ORDERABLES Final Re sult Performing Organization Address [facility] de Phone Number [facility] [address] [place] [address] * Hepatitis B surface antibody (12/20/2024 4:30 PM EDT) Hep B S Ab Nonreactive Nonreactive 12/20/2024 6:05 PM EDT [facility] HBSAB NUMBER 5.92 0.00 - 7.99 mIU/mL 12/20/2024 6:05 PM EDT [facility] Serum 12/20/2024 4:30 PM EDT 12/20/2024 4:58 PM EDT Narrative [facility] - 12/20/2024 6:05 PM EDT Individual is considered not immune to HBV infection. Mario Ramirez MD LAB BLOOD ORDERABLES Final Re sult Performing Organization Address [facility] de Phone Number [facility] [address] [place] [address]. [address] * Hepatitis B surface antigen (12/20/2024 4:30 PM EDT) Hep B Surface Ag Nonreactive Nonreactive 12/20/2024 5:57 PM EDT [facility] Comment:Health Department no tified in accordance with reportable infectious disease guidelines. Serum 12/20/2024 4:30 PM EDT 12/20/2024 4:58 PM EDT [facility] - 12/20/2024 5:57 PM EDT Specimen is considered negative for HBsAg. Mario Ramirez MD LAB BLOOD ORDERABLES Final Re sult Performing Organization Address [facility]/ZIP Co de Phone Number [facility] [address] * Hepatitis A Antibody Total (12/20/2024 4:30 PM EDT) Anti-HAV Total (IgG + IgM) Nonreactive 12/20/2024 5:57 PM EDT [facility] Serum 12/20/2024 4:30 PM EDT 12/20/2024 4:58 PM EDT Narrative [facility] - 12/20/2024 5:57 PM EDT HAV antibodies not detected Mario Ramirez MD LAB BLOOD ORDERABLES Final Re sult Performing Organization Address [facility] Co de Phone Number [facility] [address] [facility] * Hemoglobin A1c (12/20/2024 4:30 PM EDT) Hemoglobin A1C 4.4 4.0 - 5.6 % 12/21/2024 12:33 AM EDT [facility] Comment: Hemoglobin A1c Interpretation Guidelines: Normal: [...] ORDERABLES Final Re sult Performing Organization Address [facility] Co de Phone Number [facility] [address] * Ferritin (12/20/2024 4:30 PM EDT) Pathologist [facility] Ferritin 17.5 11.0 - 306.8 ng/mL 12/20/2024 5:55 PM EDT [facility] Serum 12/20/2024 4:30 PM EDT 12/20/2024 4:58 PM EDT Mario Ramirez MD LAB BLOOD ORDERABLES Final Re sult Performing Organization Address [facility] Co de Phone Number [facility] [address] * (ABNORMAL) F-Actin Smooth Muscle Ab (12/20/2024 4:30 PM EDT) [facility] F-Actin Smooth Muscle IgG 48(H) 0 - 19 Units 12/21/2024 2:23 PM EDT [facility] Comment: Negative 0 - 19 Weak positive 20 - 30 Moderate to strong positive >30 Actin Antibodies are found in 52-85% of patients with autoimmune hepatitis or chronic active hepatitis and in 22% of patients with primary biliary cirrhosis. Serum 12/20/2024 4:30 PM EDT 12/21/2024 3:07 PM EDT Narrative [facility] - 12/21/2024 3:07 PM EDT PERFORMED AT: [facility] [address] [id number] BARBER APPRENTICE: Parrish Anguiano, PhD PHONE: [phone] Mario Ramirez MD LAB BLOOD ORDERABLES Final Re sult Performing Organization Address [facility] Co de Phone Number [facility] [address] [place] [address] * (ABNORMAL) Vanessa-Lopez virus VCA IgG Antibody (12/20/2024 4:30 PM EDT) [facility] EBV VCA IgG Positive( A) Negative 12/20/2024 5:53 PM EDT [facility] Comment:Presence of detectab le VCA IgG antibodies. A positive result indicates current or past exposure to Vanessa-Lopez virus. EBV IGG NUM >750.00(H ) 0.00 - 17.99 U/mL 12/20/2024 5:53 PM EDT [facility] Serum 12/20/2024 4:30 PM EDT 12/20/2024 4:58 PM EDT Mario Ramirez MD LAB BLOOD ORDERABLES Final Re sult Performing Organization Address [facility] de Phone Number [facility] [address] [place] [address] * (ABNORMAL) CMV IgG Antibody (12/20/2024 4:30 PM EDT) CMV IgG Positive(A ) Negative 12/20/2024 5:51 PM EDT [facility] CMV IGG NUM >10.00(H) 0.00 - 0.59 U/mL 12/20/2024 5:51 PM EDT [facility] Serum 12/20/2024 4:30 PM EDT 12/20/2024 4:58 PM EDT Result [facility] Mario Ramirez MD LAB BLOOD ORDERABLES Final Re sult Performing Organization Address [facility] de Phone Number [facility] [address] [place] [address] * Ceruloplasmin (12/20/2024 4:30 PM EDT) Ceruloplasmin 20.5 18.0 - 58.0 mg/dL 12/20/2024 6:47 PM EDT [facility] Comment: Effective 03/25/2016: The units for ceruloplasmin have changed from mg/L to mg/dL. The new reference range is 18-58 mg/dL. Historical values can be converted from mg/L to mg/dL by dividing by a factor of 10. Serum 12/20/2024 4:30 PM EDT 12/20/2024 4:58 PM EDT Mario Ramirez MD LAB BLOOD ORDERABLES Final Re sult Performing Organization Address [facility]/ZIP Co de Phone Number [facility] [address] [facility]. [address] * Antimitochondrial antibody (12/20/2024 4:30 PM EDT) Anti-Mitochon Ab IFA <20.0 0.0 - 20.0 Units 12/21/2024 2:23 PM EDT [facility] Comment: Negative 0.0 - 20.0 Equivocal 20.1 - 24.9 Positive >24.9 Mitochondrial (M2) Antibodies are found in 90-96% of patients with primary biliary cirrhosis. Serum 12/20/2024 4:30 PM EDT 12/21/2024 3:07 PM EDT [facility] - 12/21/2024 3:07 PM EDT PERFORMED AT: [employer] [id number] BARBER APPRENTICE: Parrish Anguiano, PhD PHONE: [phone] Mario Ramirez MD LAB BLOOD ORDERABLES Final Re sult Performing Organization Address [facility] Co de Phone Number [facility] [address] [facility]. [address] * BLUE (IFA) with Titer (12/20/2024 4:30 PM EDT) BLUE Titer by IFA Negative 12/22/19 25 1:59 PM EDT [facility] Comment: Negative <1:80 Borderline 1:80 Positive >1:80 ICAP nomenclature: AC-0 For more information about Hep-2 cell patterns use ANApatterns.org, the official website for the International Consensus on Antinuclear Antibody (BLUE) Patterns (ICAP). Serum 12/20/2024 4:30 PM EDT 12/21/2024 3:07 PM EDT Narrative [facility] - 12/21/2024 3:07 PM EDT PERFORMED AT: [employer] [address] [id number] BARBER APPRENTICE: Parrish Anguiano, PhD PHONE: [phone] us Mario Ramirez MD LAB BLOOD ORDERABLES Final Re sult [facility] [address] [place] [address], [facility] * Alpha 1 Antitrypsin AAT Quant & Mutation (12/20/2024 4:30 PM EDT) A-1 Antitrypsin 155 100 - 188 mg/dL 12/21/2024 3:45 AM EDT [facility] A-1 Antitrypsin Pheno MM 12/22/2024 7:08 PM EDT [facility] Comment: MM Phenotype is considered to be normal , producing normal serum levels of [id number] inhibitor and not associated with clinical disease. [...] PM EDT 12/22/2024 8:23 PM EDT Narrative [facility] - 12/22/2024 8:23 PM EDT PERFORMED AT: [facility] [address] [id number] BARBER APPRENTICE: Parrish Anguiano, PhD PHONE: [phone] PERFORMED AT: [facility] [address] [id number] BARBER APPRENTICE: Chasity Barnard MD PHONE: [phone] us Mario Ramirez MD LAB BLOOD ORDERABLES Final Re sult [facility] [address] [place] [address], [facility] * Phosphatidylethanol Confirmation, B (12/20/2024 4:30 PM EDT) PETH 16:0/18.1 (POPETH) <10 Cutoff: 10 ng/mL 12/23/2024 12:28 PM EDT [facility] Comment: Phosphatidylethanol (PEth) homologues result interpretation [...] Cutoff: 10 ng/mL 12/23/2024 12:28 PM EDT [facility] Comment: PEth 16:0/18:2 (PLPEth) Reference ranges are not well established PEth Interpretation Negative. 12/23 12:28 PM EDT [facility] Comment: ADDITIONAL INFORMATION This report is intended for use in clinical monitoring and management of patients. It is not intended for use in employment-related testing. This test was developed and its performance characteristics determined by [facility] in a manner consistent with CLIA requirements. This test has not been cleared or approved by the U.S. Food and Drug Administration. Test Performed by: [facility] - [address] [address] [employer] Equipment Operator: Alexia David Ph.D.; CLIA# [id number] Whole Blood 12/20/2024 4:30 PM EDT 12/23/2024 12:28 PM EDT Mario Ramirez MD LAB BLOOD ORDERABLES Final Re sult [facility] [address] [place] [address], [facility] * Urine Drug Screen, Comprehensive Panel Scrn/Confirmation (12/20/2024 4:30 PM EDT) BARBITURATES NOT PRESENT 12/22/2024 12:37 PM EDT [facility] BENZODIAZEPINES NOT PRESENT 12/23/19 12:37 PM EDT [facility] CANNABINOIDS NOT PRESENT 12/22/2024 12:37 PM EDT [facility] TAIL BOARD WORKER STIMULANTS NOT PRESENT 12:37 PM EDT [facility] OPIOID ANALGESICS NOT PRESENT 2024 12:37 PM EDT [facility] OPIOID ANTAGONISTS NOT PRESENT 12/22 12:37 PM EDT [facility] SEDATIVES/MUSCLE RELAXANTS NOT PRESENT 12/22/2024 12:37 PM EDT [facility] TRICYCLIC ANTIDEPRESSANTS NOT PRESENT 12/22/2024 12:37 PM EDT [facility] Creatinine, Ur 88.90 mg/dL 12/21/2024 11:24 AM EDT [facility] Comment:Reference range not established for this test. pH 7.6 4.7 - 7.8 12/21/2024 11:24 AM EDT [facility] Specific [place] 1.006 1.003 - 1.035 12/21/2024 11:24 AM EDT [facility] Urine 12/20/2024 4:30 PM EDT 12/20/2024 5:03 PM EDT Narrative [facility] - 12/22/2024 12:37 PM EDT This test has been developed and its performance characteristics determined by [facility] which is certified under the Clinical Laboratory Improvement Amendment of 1988 (CLIA-88) to perform high complexity testing. The test has not been cleared or approved by the US Food and Drug Administration (FDA). The FDA has determined that such clearance is not necessary. The test should be used for clinical purposes and is not regarded as investigational. Mario Ramirez MD URINE ORDERABLES Final Result Performing Organization Address City/[facility]/ZIP Co de Phone Number [address] * Antibody screen (12/20/2024 4:30 PM EDT) Antibody Screen Negative 12/20/2024 5:34 PM EDT [facility] Blood 12/20/2024 4:30 PM EDT 12/20/2024 4:56 PM EDT Narrative [facility] - 12/20/2024 5:38 PM EDT Testing performed by [facility] Transfusion Service Mario Ramirez MD BLOOD BANK TEST ORDERABLES Fi nal Result Performing Organization Address [facility] Co de Phone Number [address] * ABO/Rh (12/20/2024 4:30 PM EDT) ABO Grouping O 12/20/2024 5:19 PM EDT [facility] Rh Type Positive 12/20/2024 5:19 PM EDT [facility] Blood 12/20/2024 4:30 PM EDT 12/20/2024 4:56 PM EDT Mario Ramirez MD BLOOD BANK TEST ORDERABLES Fi nal Result Performing Organization Address [facility] Co de Phone Number [facility] [address] [place] [address]. [address] * AFP tumor marker (12/20/2024 4:30 PM EDT) AFP-Tumor Marker 5.2 0.0 - 9.0 ng/mL 12/20/2024 5:42 PM EDT [facility] Serum 12/20/2024 4:30 PM EDT 12/20/2024 4:58 PM EDT Narrative [facility] - 12/20/2024 5:42 PM EDT The testing method for AFP is a chemiluminescent immunoassay manufactured by [employer] Concentrations of AFP obtained by different assay methods or kits may vary and cannot be used interchangeably. AFP results cannot be interpreted as absolute evidence of the presence or absence of malignant disease. Mario Ramirez MD LAB BLOOD ORDERABLES Final Re sult Performing Organization Address [facility] de Phone Number [facility] [address] [facility] * (ABNORMAL) Protime-INR (12/20/2024 4:30 PM EDT) Protime 16.7(H) 12.1 - 15.1 seconds 12/20/2024 5:42 PM EDT [facility] INR 1.3(H) 0.9 - 1.1 12/20/2024 5:42 PM EDT [facility] Comment: RECOMMENDED THERAPEUTIC RANGES USING INR : Stable oral anticoagulant therapy: 2.0 - 3.0 Mechanical prosthetic heart valve: 2.5 - 3.5 Recurrent acute myocardial infarction: 2.5 - 3.5 Plasma 12/20/2024 4:30 PM EDT 12/20/2024 4:57 PM EDT Mario Ramirez MD LAB BLOOD ORDERABLES Final Re sult Performing Organization Address [facility] de Phone Number [facility] [address] [facility] * (ABNORMAL) Hepatic Function Panel (12/20/2024 4:30 PM EDT) Total Bilirubin 3.4(H) 0.0 - 1.5 mg/dL 12/20/2024 5:32 PM EDT [facility] Bilirubin, Direct 0.78(H) 0.00 - 0.40 mg/dL 12/20/2024 5:32 PM EDT [facility] AST 35 13 - 39 U/L 12/20/2024 5:32 PM EDT [facility] ALT 20 7 - 52 U/L 12/20/2024 5:32 PM EDT [facility] Alkaline Phosphatase 117 36 - 125 U/L 12/20/2024 5:32 PM EDT [facility] Total Protein 7.0 6.4 - 8.9 g/dL 12/20/2024 5:32 PM EDT [facility] Albumin 3.8 3.5 - 5.7 g/dL 12/20/2024 5:32 PM EDT [facility] Bilirubin, Indirect 2.62(H) 0.00 - 1.10 mg/dL 12/20/2024 5:32 PM EDT [facility] Plasma 12/20/2024 4:30 PM EDT 12/20/2024 4:58 PM EDT us Mario Ramirez MD LAB BLOOD ORDERABLES Final Re sult [facility] [address] * (ABNORMAL) Renal Function Panel w/EGFR (12/20/2024 4:30 PM EDT) Sodium 138 133 - 146 mmol/L 12/20/2024 5:32 PM EDT [facility] Potassium 3.4(L) 3.5 - 5.3 mmol/L 12/20/2024 5:32 PM EDT [facility] Chloride 105 98 - 110 mmol/L 12/20/2024 5:32 PM EDT [facility] CO2 24 21 - 33 mmol/L 12/20/2024 5:32 PM EDT [facility] Anion Gap 9 3 - 16 mmol/L 12/20/2024 5:32 PM EDT [facility] BUN 9 7 - 25 mg/dL 12/20/2024 5:32 PM EDT [facility] Creatinine 0.75 0.60 - 1.30 mg/dL 12/20/2024 5:32 PM EDT [facility] Glucose 73 70 - 100 mg/dL 12/20/2024 5:32 PM EDT [facility] Calcium 9.1 8.6 - 10.3 mg/dL 12/20/2024 5:32 PM EDT [facility] Phosphorus 2.4 2.1 - 4.7 mg/dL 12/20/2024 5:32 PM EDT [facility] Albumin 3.8 3.5 - 5.7 g/dL 12/20/2024 5:32 PM EDT [facility] Osmolality, Calculated 283 278 - 305 mOsm/kg 12/20/2024 5:32 PM EDT [facility] EGFR >90 12/20/2024 5:32 PM EDT [facility] Comment: As of 2021, the estimated [...] MD LAB BLOOD ORDERABLES Final Re sult [facility] [address] * (ABNORMAL) Differential (12/20/2024 4:30 PM EDT) Neutrophils Relative 37.0(L) 40.0 - 80.0 % 12/20/2024 5:08 PM EDT [facility] Lymphocytes Relative 33.7 15.0 - 45.0 % 12/20/2024 5:08 PM EDT [facility] Monocytes Relative 14.3(H) 0.0 - 12.0 % 12/20/2024 5:08 PM EDT [facility] Eosinophils Relative 13.8(H) 0.0 - 8.0 % 12/20/2024 5:08 PM EDT [facility] Basophils Relative 1.2(H) 0.0 - 1.0 % 12/20/2024 5:08 PM EDT [facility] nRBC 0 0 - 0 /100 WBC 12/20/2024 5:08 PM EDT [facility] Neutrophils Absolute 1,628 1,520 - 8,640 /uL 12/20/2024 5:08 PM EDT [facility] Lymphocytes Absolute 1,483 570 - 4,860 /uL 12/20/2024 5:08 PM EDT [facility] Monocytes Absolute 629 0 - 1,296 /uL 12/20/2024 5:08 PM EDT [facility] Eosinophils Absolute 607 0 - 864 /uL 12/20/2024 5:08 PM EDT [facility] Basophils Absolute 53 0 - 108 /uL 12/20/2024 5:08 PM EDT [facility] Whole Blood 12/20/2024 4:30 PM EDT 12/20/2024 4:58 PM EDT us Mario Ramirez MD LAB BLOOD ORDERABLES Final Re sult [facility] [address] * (ABNORMAL) CBC (12/20/2024 4:30 PM EDT) WBC 4.4 3.8 - 10.8 10E3/uL 12/20/2024 5:08 PM EDT [facility] RBC 3.66(L) 3.80 - 5.10 10E6/uL 12/20/2024 5:08 PM EDT [facility] Hemoglobin 12.3 11.7 - 15.5 g/dL 12/20/2024 5:08 PM EDT [facility] Hematocrit 35.2 35.0 - 45.0 % 12/20/2024 5:08 PM EDT [facility] MCV 96.0 80.0 - 100.0 fL 12/20/2024 5:08 PM EDT [facility] MCH 33.7(H) 27.0 - 33.0 pg 12/20/2024 5:08 PM EDT [facility] MCHC 35.1 32.0 - 36.0 g/dL 12/20/2024 5:08 PM EDT [facility] RDW 14.3 11.0 - 15.0 % 12/20/2024 5:08 PM EDT [facility] Platelets 111(L) 140 - 400 10E3/uL 12/20/2024 5:08 PM EDT [facility] MPV 8.8 7.5 - 11.5 fL 12/20/2024 5:08 PM EDT [facility] Whole Blood 12/20/2024 4:30 PM EDT 12/20/2024 4:58 PM EDT us Mario Ramirez MD LAB BLOOD ORDERABLES Final Re sult Performing Organization Address City/State/[facility] Co de Phone Number [facility] [address] documented in this encounter Visit Diagnoses Diagnosis 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) Pre-transplant evaluation for chronic liver disease 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) Pre-transplant evaluation for liver transplant documented in this encounter Additional Health Concerns Assessment Noted Time PHQ-9 Depression Total Score: 13 025 2:00 PM EDT documented as of this encounter Care Teams Pipe Smoking Machine Offbearer Relationship Specialty Start Date End Date Yonatan Graves DO [address] [place] [address] PCP - General 09/02/23 Farida Ortega NP [address] [place] [id number] Referring Physician Gastroenterology 09/02/23 documented as of this encounter
--- OUTSIDE RECORDS SUMMARY | 2025-01-10 13:30 | XMS_ITS | Encounter Summary ---
Author Organization [facility] Address [address] [place] [address] Care Team Providers Care Dredge Worker Name Role Phone Yonatan Graves DO Primary Care Provider Farida Ortega CLINICAL STAFF RN Unavailable [phone] Source Comments This information has been disclosed [...] release of HIV test results or diagnoses. [id number] Reason for Visit * Reason Comments New Patient Visit/ Consultation Encounter Details Date Type Department Care Team (Late st Contact Info) Description 01/10/2025 1:30 PM EDT Office Visit [facility] Liver Transplant at [facility] [address] [facility] [address] [place] [address] Phani Richmond MD [address] [address] Frank Beltran MD [address] 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); Encounter for pre-transplant evaluation for liver transplant Social History Tobacco [...] Sign Reading Time Taken Comments Blood Pressure 112/65 01/10/2025 1:23 PM EDT Pulse 62 01/10/2025 1:23 PM EDT Temperature - - Respiratory Rate 16 01/10/2025 1:23 PM EDT Oxygen Saturation 100% 01/10/2025 1:23 PM EDT Inhaled Oxygen Concentration 100% 01/10/2025 1 :23 PM EDT Weight 68.9 kg (152 lb) 01/10/2025 1:23 PM EDT Height 165.1 cm (5' 5 ) 01/10/2025 1:23 PM EDT Body Mass Index 25.29 01/10/2025 1:23 PM EDT documented in this encounter Progress Notes * Frank Kowalski MD - 01/10/2025 1:30 PM EDT Infectious Disease Pre-Transplant Consultation Patient: Mindy Wade CSN: [id number] Dear Dr. Jono Yates III, Thank you for referring Mindy Wade for pre-transplant evaluation with a focus on infection. Below you will find my consultation note. Chief Complaint Pre-transplant evaluation, infectious focus History of Present Illness Mindy Wade is a 34 y.o. 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 Childhood immunizations and illnesses: received routine vaccinations as a child. Chickenpox as a kid. Places of habitation and travel: patient lives with and 3 kids (14, 13, 9 y/o) in [place], [place]. The patient has lived in [place] all her life. No sick contacts. Stayed in [place] overnight x 1 several years ago. No history of homelessness. Prior trip to [facility].International travel: [place] 16 year of age. No known TB Contact. Current vaccinations: hep B 08/20/2024, 11/02/2024. Significant infections: no history of SBP. Staph infection complicating ureteral stone/stent which required IV antibiotics (over 10 years ago). She reports being treated for URI/asthma exacerbation 2-3 months ago with levofloxacin/steroids. Patient denies fever, chills, night sweats. No cough/hemoptysis. No weight loss. Reports rhinorrheaand wheezing off/on which she attributes to history of asthma/allergies. No shortness of breath at this time. MELD 3.0: 15 at 12/20/2024 4:30 PM [...] years Sex: Female at 12/20/2024 4:30 PM Review of Systems Constitutional: denies fevers, chills, night sweats, weight loss. Eyes: denies jones discharge, visual changes Ears, Nose, Mouth, and Throat: denies sore throat, mouth sores Cardiovascular: denies chest pain, palpitations Respiratory: denies shortness of breath, hemoptysis Gastrointestinal: denies nausea, vomiting, diarrhea Genitourinary: denies dysuria, hematuria, Neurologic: denies new headaches, weakness, Integumentary: denies new rash, sores on skin Past 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 Past 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: Diagnosis [...] Laterality: N/A; UPPER GASTROINTESTINAL ENDOSCOPY 09/21/2022 Family History Family History Problem Relation Age of Onset Liver disease Father Cirrhosis Father Social History Social History Socioeconomic History Marital status: Spouse [...] Resource Strain: Patient Declined (08/05/2023) Received from [facility] Overall Financial Resource Strain (CARDIA) Difficulty of [...] file Physical Activity: Inactive (08/05/2023) Received from [facility] Exercise Vital Sign Days of Exercise per Week: 0 days Minutes of Exercise per Session: 0 min Stress: Stress Concern Present (08/05/2023) Received from [facility] [place] [employer] - Occupational Stress Questionnaire Feeling of Stress : Rather much Social Connections: Not At Risk (08/05/2023) Received from [facility] Family and Community Support If for any [...] No Assistance needed for:: Not on file Medications Outpatient Meds: Current Outpatient Medications Medication Sig furosemide TAKE 3 TABLETS(60 MG) BY MOUTH TWICE DAILY gabapentin Take 1 tablet (800 mg total) by mouth 3 times a day. ondansetron Take 1 tablet (4 mg total) by mouth every 8 hours as needed for Nausea. ondansetron Take 1 tablet (8 mg total) by mouth every 8 hours as needed for Nausea. spironolactone TAKE 3 TABLETS BY MOUTH TWICE DAILY No current facility-administered medications for this visit. Vital Signs Vitals: 01/10/25 1323 BP: 112/65 Pulse: 62 Resp: 16 SpO2: 100% Physical Exam General: well developed, no acute distress Eyes: conjunctiva clear, mild jaundice Ears, nose, mouth, throat: oropharynx without lesions or exudates, Neck: supple Cardiovascular: RRR, normal S1, S2, Respiratory: CTA, moving air well, GI: soft, nontender, nondistended, Psychiatric: alert and oriented, follow commands, Lymphatic: No cervical lymphadenopathy Laboratory Data Lab Results Component Value Date WBC 4.4 12/20/2024 Lab Results Component Value Date HGB 12.3 12/20/2024 Lab Results Component Value Date PLT 111 (L) 12/20/2024 Lab Results Component Value Date ALT 20 12/20/2024 Lab Results Component Value Date AST 35 12/20/2024 Lab Results Component Value Date ALKPHOS 117 12/20/2024 Lab Results Component Value Date BILITOT 3.4 (H) 12/20/2024 Lab Results Component Value Date INR 1.3 (H) 12/20/2024 Lab Results Component Value Date CREATININE 0.75 12/20/2024 Lab Results Component Value Date EGFR >90 12/20/2024 Lab Results Component Value Date AFPTM 5.2 12/20/2024 Lab Results Component Value Date CMVIGG Positive (A) 12/20/2024 Lab Results Component Value Date EBVVCAIGG Positive (A) 12/20/2024 Lab Results Component Value Date VARICELLAIGG Positive (A) 12/20/2024 Lab Results Component Value Date [id number] Nonreactive 12/20/2024 Lab Results Component Value Date TREPIA Negative 12/20/2024 No results found for: QUANTIFERTB No results found for: QFTTBGOLD Lab Results Component Value Date MITOGENINT Positive (A) 12/20/2024 Lab Results Component Value Date TOXOIGG <3.0 12/20/2024 Lab Results Component Value Date STRONGYLAB Negative 12/20/2024 No results found for: HEPAIGG Lab Results Component Value Date HBSAB Nonreactive 12/20/2024 Lab Results Component Value Date HEPBSAG Nonreactive 12/20/2024 Lab Results Component Value Date HEPBCAB Nonreactive 12/20/2024 Lab Results Component Value Date HCVAB Reactive (A) 12/20/2024 Lab Results Component Value Date MUMPSIGG Positive 12/20/2024 Lab Results Component Value Date RUBELLAIGG Positive 12/20/2024 Lab Results Component Value Date RUBEOLAIGG Positive 12/20/2024 11/01/2022 Hep A IgG positive 0 Result Notes Component Ref Range & Units (hover) 12/20/24 4:30 PM Anti-HAV Total (IgG + IgM) Nonreactive Diagnostic Studies 08/12/2024 MRI ab IMPRESSION: 1. Multiple small LIRADS 3 and 4 lesions throughout the liver. 2. Cirrhotic morphology of liver with sequela of portal hypertension. CXR Impression IMPRESSION: No acute cardiopulmonary abnormality. Assessment & Plan 34 y.o. female with asthma, ESLD secondary to EtOH and HCV (prior drug use, s/p Harvoni in 2018 with SVR) c/b ascites/fluid overload who presents for a pre- transplant evaluation with a focus on infection. - Discussed infectious diseases risks/potential complications related to solid organ transplantation. - The patient is CMV IgG +, will need valganciclovir for CMV prophylaxis after transplantation as per protocol. - Routine PJP prophylaxis with trimethoprim-sulfamethoxazole after transplantation as per protocol (atovaquone or dapsone are alternatives). - Immunizations: hep B vaccination series (last dose 10/2024). Prior hep A IgG+ but recent total ab negative? Would suggest hep A booster dose. We also discussed about PCV-20, Tdap. She would also benefit from Shingrix and RSV vaccination given consideration for transplant. We also discussed about seasonal flu/covid vaccines when they become available. She declined any vaccines today. - Additional labs: Coccidioides ab. Positive QFT (12/20/2024) - No obvious active TB symptoms at this time. Reports prior episode of URI/asthma exacerbation treated with levofloxacin+steroids 2-3 months ago. - Will obtain CXR (order entered). If negative then we discussed about LTBI treatment options and potential benefits/risk (including high risk of progression to TB disease if LTBI left untreated in setting of consideration for transplant/immunosuppression). Potential side effects from LTBI treatment were discussed. She would prefer the 3-month regimen of weekly isoniazid + rifapentine (3HP) whichwould be the shortest regimen available at this time, and associated with lesser hepatotoxicity compared to traditional 9H (9 months of daily isoniazid). Regardless would need to monitor tolerabilityand LFTs closely given her ESLD condition. We also discussed about 4R (4 months of daily rifampin);9H would be an alternative if unable to take rifamycin-based regimen. We discussed that if CXR is abnormal she will need further workup (including sputum studies) to r/o active TB disease. Discussed with transplant team as well. Thank you for referring Mindy Wade for ID evaluation. Do not hesitate to contact me should you have any questions. Sincerely, Signed: Frank Kowalski MD 01/10/2025, 1:24 PM documented in this encounter Plan of Treatment Scheduled Orders Name Type Priority Associated Diagnoses Orde r Schedule Coccidioides Antibody Reflexive Panel Lab Routine Encounter for pre-transplant evaluation for liver transplant 1 Occurrences starting 01/10/2025 until 07/25/2025 documented as of this encounter Results * X-ray Chest PA and Lateral (01/10/2025 2:57 PM EDT) Anatomical Region Laterality Modality Chest Radiographic Radha ging 01/10/2025 2:44 PM EDT Impressions 01/10/2025 4:32 PM EDT IMPRESSION: No evidence of active or previous tuberculosis. Approved by Skip Keen MD on 01/10/2025 4:10 PM EDT I have personally reviewed the images and I agree with this report. Report Verified by: Anuj Rodriguez MD at 01/10/2025 4:32 PM EDT Narrative 01/10/2025 4:32 PM EDT EXAM: XR CHEST PA AND LATERAL INDICATION: Positive QuantiFERON-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 TECHNIQUE: 2 views of the chest. COMPARISON: CXR 09/02/2023. FINDINGS: Medical Devices: None. Heart and Mediastinum: Cardiomediastinal silhouette is within normal limits. Lungs and Pleura: There is no cavitation, consolidation or nodular pattern. There are no fibronodular changes. Bones and Soft tissues: No acute abnormalities. Procedure Note Anuj Rodriguez MD - 01/10/2025 EXAM: XR CHEST PA AND LATERAL INDICATION: Positive QuantiFERON-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 TECHNIQUE: 2 views of the chest. COMPARISON: CXR 09/02/2023. FINDINGS: Medical Devices: None. Heart and Mediastinum: Cardiomediastinal silhouette is within normallimits. Lungs and Pleura: There is no cavitation, consolidation or nodularpattern. There are no fibronodular changes. Bones and Soft tissues: No acute abnormalities. IMPRESSION: No evidence of active or previous tuberculosis. Approved by Skip Keen MD on 01/10/2025 4:10 PM EDT I have personally reviewed the images and I agree with this report. Report Verified by: Anuj Rodriguez MD at 01/10/2025 4:32 PM EDT [facility] Kin Kowalski MD IMG DIAGNOSTIC IMAGI NG ORDERABLES Final Result documented in this encounter Visit Diagnoses Diagnosis Positive QuantiFERON-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- Primary Encounter for pre-transplant evaluation for liver transplant Positive QuantiFERON-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 documented in this encounter Additional Health Concerns Assessment Noted Time PHQ-9 Depression Total Score: 13 025 2:00 PM EDT documented as of this encounter Care Teams Dredge Worker Relationship Specialty Start Date End Date Yonatan Graves DO [address] [place] [address] PCP - General 09/02/23 Farida Ortega, CLINICAL STAFF RN [address] [place] [address] Referring Physician Gastroenterology 09/02/23 documented as of this encounter
--- OUTSIDE RECORDS SUMMARY | 2025-01-10 14:25 | XMS_ITS | Encounter Summary ---
Author Organization [facility] Address [facility][note 3][address] [place] [address] Care Team Providers Care Intern Retail Name Role Phone Yonatan Graves DO Primary Care Provider Farida Ortega HITTING COACH Unavailable [phone] Source Comments This information has been disclosed [...] release of HIV test results or diagnoses. [id number] Health Encounter Details Date Type Department Care Team (Latest Contact Info) Description 01/10/2025 2:25 PM EDT - 01/10/2025 11:59 PM EDT Hospital Encounter [facility] Radiology [address] [place] [address] Frank Beltran MD [address] [place] [address] Positive QuantiFERON-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 Discharge Disposition: Home or Self Care WITHOUT [...] of Discharge furosemide (LASIX) 20 MG tablet TAKE 3 TABLETS(60 MG) BY MOUTH TWICE DAILY 540 tablet 1 11/16/2024 gabapentin (NEURONTIN) 800 MG tablet Take 1 tablet (800 mg total) by mouth 3 times a day. 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 40 tablet 2 08/18/2024 ondansetron (ZOFRAN-ODT) 8 MG disintegrating tablet Take 1 tablet (8 mg total) by mouth every 8 hours as needed for Nausea. 20 tablet 08/24/2024 spironolactone (ALDACTONE) 50 MG tablet TAKE 3 TABLETS BY MOUTH TWICE DAILY 540 tablet 1 12/23/2024 documented as of this encounter Plan of Treatment Not on file documented as of this encounter Procedures Procedure Name Priority Date/Time Associated Diagnosis Comments XR CHEST PA AND LATERAL Routine 01/10/2025 2:57 PM EDT Positive QuantiFERON-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 documented in this encounter Results * X-ray Chest PA [...] of active or previous tuberculosis. Approved by Skpi Keen MD on 01/10/2025 4:10 PM EDT I have personally reviewed the images and I agree with this report. Report Verified by: Anuj Rodriguez MD at 01/10/2025 4:32 PM EDT [facility] Kin Kowalski MD IMG DIAGNOSTIC IMAGI NG ORDERABLES Final Result documented in this encounter Visit Diagnoses Diagnosis Positive QuantiFERON-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 documented in this encounter Additional Health Concerns Assessment Noted Time PHQ-9 Depression Total Score: 13 11/04/ 025 2:00 PM EDT documented as of this encounter Care Teams Intern Retail Relationship Specialty Start Date End Date Yonatan Graves DO [address] [place] [address] PCP - General 09/02/23 Farida Ortega HITTING COACH [address] [place] [address] Referring Physician Gastroenterology 09/02/23 documented as of this encounter
--- OUTSIDE RECORDS SUMMARY | 2025-01-12 14:59 | XMS_ITS | Encounter Summary ---
Author Organization [facility] Address [address] [place] [address] Care Team Providers Care Park Activities Coordinator Name Role Phone Yonatan Graves DO Primary Care Provider Farida Ortega PRINT DECORATOR Unavailable [phone] Source Comments This information has been disclosed [...] release of HIV test results or diagnoses. [id number] Health Encounter Details Date Type Department Care Team (Late st Contact Info) Description 12/20/2024 Orders Only [facility] Liver Transplant at [address] [place] [phone] Abdullahi Cano RN Pre-transplant evaluation for chronic liver disease (Primary Dx); 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); Cardiovascular risk factor Social History Tobacco Use Types Packs/Day Years [...] 12/20 Assistance needed for: Not on file 06/30/202 5 Yearly Questionnaire Answer Date Record ed [...] documented as of this encounter Results * ECG 12-Lead (MUSE) (12/20/2024 2:00 PM EDT) 12/20/2024 2:00 PM EDT Narrative MUSE - 12/21/2024 10:39 AM EDT Ventricular Rate: 63 BPM Atrial Rate: 63 BPM P-R Interval: 118 ms QRS Duration: 84 ms QT: 480 ms QTc: 491 ms P [place]: 23 degrees R [place]: 46 degrees T [place]: 52 degrees Diagnosis Line: NORMAL SINUS RHYTHM ^ PROLONGED QT ^ ABNORMAL ECG ^ ^ Confirmed by Anthony RAMOS MD ([facility]) on 12/21/2024 10:39:48 AM Mario Ramirez MD ECG ORDERABLES Final Result MUSE documented in this encounter Visit Diagnoses Diagnosis 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)- Primary Pre-transplant evaluation for chronic liver disease 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) Cardiovascular risk factor Pre-transplant evaluation for liver transplant Pre-transplant evaluation for chronic liver disease- Primary 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) Cardiovascular risk factor documented in this encounter Additional Health Concerns Assessment Noted Time PHQ-9 Depression Total Score: 13 025 2:00 PM EDT documented as of this encounter Care Teams Park Activities Coordinator Relationship Specialty Start Date End Date Yonatan Graves DO [address] [place] [address] PCP - General 09/02/23 Farida Ortega, PRINT DECORATOR [id number] [place] [address] Referring Physician Gastroenterology 09/02/23 documented as of this encounter
--- OUTSIDE RECORDS SUMMARY | 2025-01-12 14:59 | XMS_ITS | Encounter Summary ---
Author Organization [facility] Address [address] [place] [address] Care Team Providers Care Band Saw Operator Cake Cutting Name Role Phone Yonatan Graves DO Primary Care Provider Farida Ortega CALENDER WIND UP TENDER Unavailable [phone] Source Comments This information has been disclosed [...] release of HIV test results or diagnoses. [id number] Health Encounter Details Date Type Department Care Team (Late st Contact Info) Description 11/16/2024 Telephone [facility] Psychiatry Transplant at [facility] [address] [facility] [address] [place] [address] Annmarie Rangel PsyD [address] [facility] [address] [place] [address] Social History Tobacco Use Types Packs/Day Years [...] Miscellaneous Notes * Telephone Encounter - Annmarie Rangel PsyD - 11/19/2024 9:19 AM EDT Placed outreach call to [facility] to consult with patient's mental health provider. Staff answered and took this comic book writer's information and contact number. They will send a message to Brynn Pittman with request to contact this comic book writer at her earliest convenience. Will await contact. documented in this encounter Plan of Treatment Not on file documented as of this encounter Visit Diagnoses Not on filedocumented in this encounter Additional Health Concerns Assessment Noted Time PHQ-9 Depression Total Score: 13 025 2:00 PM EDT documented as of this encounter Care Teams Band Saw Operator Cake Cutting Relationship Specialty Start Date End Date Yonatan Graves DO [address] [place] [address] PCP - General 09/02/23 Farida Ortega, CALENDER WIND UP TENDER [address] [place] [address] Referring Physician Gastroenterology 09/02/23 documented as of this encounter
--- OUTSIDE RECORDS SUMMARY | 2025-01-12 14:59 | XMS_ITS | Encounter Summary ---
Author Organization [facility] Address [address] [place] [id number] Care Team Providers Care Awake Overnight Counselor Name Role Phone Kierra Guajardo MD Primary Care Provide r Encounter Details Date Type Department Care Team (Latest Contact Info) Description 11/25/2024 Travel Social History Tobacco Use Types Packs/Day Years Used Date Smoking Tobacco: Former Cigarettes Smokeless Tobacco: Never Alcohol Use Standard Drinks/Week Comments Not Currently 0 (1 standard drink = 0.6 oz pure alcohol) 4-6 wine coolers daily for several years [facility] Utilities Answer Date Recorded In the past 12 months has [employer], gas, oil, or water [employer] threatened to shut off services in your [...] medical care, and heating? Patient declined 08/05/2023 [facility] of Occupat ional Health - Occupational Stress [...] GED or equivalent No 08/05/2023 Preferred Language Maldivian 08/05/2023 PHQ-2 Answer Date Recorded Retired PHQ-9: [...] documented as of this encounter Care Teams Awake Overnight Counselor Relationship Specialty Start Date End Date Kierra Guajardo MD [address] [place] [address] PCP - General Internal Medicine 10/23/23 documented as of this encounter
--- OUTSIDE RECORDS SUMMARY | 2025-01-12 14:59 | XMS_ITS | Encounter Summary ---
Author Organization [facility] Address [address] [place] [address] Care Team Providers Care Export Clerk Name Role Phone Kierra Guajardo MD Primary Care Provide r Reason for Visit * Reason Onset Date Comments DISH MAKER PAO HANLEY- CALL BACK 11/22/2024 Encounter Details Date Type Department Care Team (Late st Contact Info) Description 11/22/2024 Telephone [facility] OBGYN [address] [facility] [address] [place] [phone] Pao Hanley, DISH MAKER [address] [facility] [address] [place] [address] DISH MAKER PAO HANLEY- CALL BACK Social History Tobacco Use Types Packs/Day Years Used Date Smoking Tobacco: Former Cigarettes Smokeless Tobacco: Never Alcohol Use Standard Drinks/Week Comments Not Currently 0 (1 standard drink = 0.6 oz pure alcohol) 4-6 wine coolers daily for several years [facility] Utilities Answer Date Recorded In the past 12 months has [employer], oil, or water [employer] threatened to shut off services in your [...] medical care, and heating? Patient declined 08/05/2023 [facility] of Occupat ional [facility] - Occupational Stress Questionnaire Answer Date Recorded [...] GED or equivalent No 08/05/2023 Preferred Language Belgian 08/05/2023 PHQ-2 Answer Date Recorded Retired PHQ-9: Brief Depression Severity Measure Score 2 08/05/2023 Comments No Sex and Gender Information Value Date Recorded Sex Assigned at Not on file Legal Sex Female 10:56 AM EDT Gender Identity Not on file Sexual Orientation Not on file documented as of this encounter Miscellaneous Notes * Telephone Encounter - Mindy Barnett MA - 11/22/2024 3:36 PM EDT Returned patient call- currently having yeast infection sx. She reports frequently taking abx due to autoimmune issues, and is asking if she can have something sent in for her. She is scheduled for an appt 11/26/2023. She declined earlier appt due to childrens schedules. Last seen 11/11/2023. Reviewedwith her that we are unable to send in anything as we have not seen her in >1 yr. * Telephone Encounter - Vianca Senior RegSched Rep - 11/22/2024 12:44 PM EDT Caller: Mindy Wade Relationship: Self Best call back number: [phone] What is the best time to reach you: LETTY Who are you requesting to speak with (clinical staff, provider, specific staff member): CLINICAL What was the call regarding: LOOK FOR RECOMMENDATIONS ON SYMPTOMS Is it okay if the provider responds through MyChart: CALL BACK documented in this encounter Plan of Treatment Not on file documented as of this encounter Visit Diagnoses Not on filedocumented in this encounter Additional Health Concerns Assessment Noted Time PHQ-2 Depression Total Score: 2 08/05/19 24 9:47 AM EST documented as of this encounter Care Teams Export Clerk Relationship Specialty Start Date End Date Kierra Guajardo MD [address] [place] [address] PCP - General Internal Medicine 10/23/23 documented as of this encounter
--- OUTSIDE RECORDS SUMMARY | 2025-01-12 14:59 | XMS_ITS | Encounter Summary ---
Author Organization [facility] Address [address] [place] [address] Care Team Providers Care Barge Pilot Name Role Phone Yonatan Graves DO Primary Care Provider Farida Ortega JAVA PROGRAMMING PROFESSOR Unavailable [phone] Source Comments This information has been disclosed [...] release of HIV test results or diagnoses. [id number] Health Reason for Visit * Reason Comments Medication Refill Encounter Details Date Type Department Care Team (Late st Contact Info) Description 11/14/2024 Refill [facility] Gastroenterology at [facility] [id number] [place] [address] Subhash Connolly, PULP COOKER [address] [place] [address] Social History Tobacco Use Types [...] Telephone Encounter - Nadya Jackman MA - 11/16/2024 8:57 AM EDT Last OV:08/18/2024 Next OV:02/09/2025 Last Labs:11/04/2024 Last refill: Comment: documented in this encounter Plan of Treatment Not on file documented as of this encounter Visit Diagnoses Not on filedocumented in this encounter Additional Health Concerns Assessment Noted Time PHQ-9 Depression Total Score: 13 025 2:00 PM EDT documented as of this encounter Care Teams Barge Pilot Relationship Specialty Start Date End Date Yonatan Graves DO [address] [place] [address] PCP - General 09/02/23 Farida Ortega, JAVA PROGRAMMING PROFESSOR [address] [place] [id number] Referring Physician Gastroenterology 09/02/23 documented as of this encounter
--- OUTSIDE RECORDS SUMMARY | 2025-01-12 14:59 | XMS_ITS | Clinical Summary ---
Author Organization [facility] Address [address] [place] [address] Care Team Providers Care Lead Process Engineer Name Role Phone Yonatan Graves DO Primary Care Provider Adryan Bearden Unavailable Allergies [...] each day. 60 each 2 4 Active fluconazole (Diflucan) 150 MG tabletIndicatio ns:Severe alcohol use disorder, in sustained remission Take 1 tablet by mouth every 3rd day. 1 tablet 5 Active gabapentin (Neurontin) 800 MG tablet Take 1 tablet by mouth 3 times a day. 90 tablet 5 01/23/20 25 Active gabapentin (Neurontin) 800 MG tablet Take 1 tablet by mouth 3 times a day. 90 tablet 5 12/24/19 25 Discontinu ed(Reorder ) Active Problems Problem Noted [...] organization. Date Type Department Care Team Description 12/28/2024 Travel 11/09/2024 Travel 11/08/2024 Travel from Last 3 Months Immunizations Immunization Administration Dates Next Due Influenza, seasonal, injectable 04/19/2010 Family History 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 Relation Name Comments Arthritis Maternal Grandfather Aaron Hernández Diabetes Maternal Grandfather Aaron Hernánedz Arthritis Maternal Grandmother Gina hernández Autoimmune disease [...] 111 10/07/2023 9:43 AM EDT Temperature 36.6 C (97.9 F) 10/07/2023 9:43 AM EDT Respiratory Rate 16 10/07/2023 9:43 AM EDT Oxygen Saturation 99% 10/07/2023 9:43 AM EDT Inhaled Oxygen Concentration - - Weight 65.5 kg (144 lb 6.4 oz) 10/07/2023 9:43 A M EDT Height 165.1 cm (5' 5 ) 10/07/2023 9:43 AM EDT Body Mass Index 24.03 10/07/2023 9:43 AM EDT Plan of Treatment Health Maintenance Due Date Last Done Comments [facility]-Infant/Child/Adol SDOH Screenings 1990 [facility]-Varicella Vaccines (1 of 2 - 13+ 2-dose series) 2003 HPV Vaccines (1 - 3-dose series) 2005 [facility]- SDOH Screenings 01/26/2008 [facility]-Adult SDOH Screenings 01/26/2008 [facility]-DTaP,Tdap,and Td Vaccines (1 - Tdap) 2009 [facility]-Hepatitis A Vaccines (1 of 2 - Risk 2-dose series) 2009 [facility]-Pneumococcal Vaccine: Pediatrics (0 to 5 Years) and At-Risk Patients (6 to 49 Years) (1 of 2 - PCV) 2009 [facility]-HPV/Cotest 01/26/2020 [id number] Vaccine (1 - 2023- season) 2024 [facility]-Hepatitis B Vaccines (3 of 3 - 19+ 3-dose series) 02/17/2025 11/02/2024, 08/20/2024 [facility]-Influenza Vaccine (#1) 2025 04/19/2010 [facility]-Depression Screening 03/16/2025 024, 03/16/2024 [facility]-Cervical Cancer Screening 11/26/2027 [facility]-Pap Smear 11/26/2027 11/25/2024, 11/11/2023 [facility]-Zoster Vaccines (1 of 2) 01/26/2040 [facility]-HIV Screening Completed 12/20/2024, 08/28/2023, 12/04/2015 [facility]-HIB Vaccines Aged Out No longer e ligible based on patient's age to complete this topic [facility]-IPV Vaccines Aged Out No longer e ligible based on patient's age to complete this topic [facility]-Rotavirus Vaccines Aged Out No lo nger eligible based on patient's age to complete this topic Procedures Procedure Name Priority Date/Time Associated Diagnosis Comments ED HIV 1/2 ANTIBODY/ANTIGEN SCREEN WITH REFLEX TO HIV I/II DIFFERENTIATION STAT 08/28/2023 11:39 AM EST from Last 3 Months or Most Recently Relevant to Health Maintenance Results * ED HIV 1/2 Antibody/Antigen Screen w/Reflex to HIV 1/2 Differentiation (08/28/2023 11:39 AM EST) HIV 1 & 2 Antibody/Antigen Screen Non Reactive Non Reactive 08/28/2023 12:23 PM EST [facility] Comment:Screening for HIV 1 & 2 antibodies, and P24 antigen is NONREACTIVE. No confirmatory testing is required. Blood Venous blood specimen / Unknown Venipuncture / Unknown 08/28/2023 11:39 AM EST 08/28/2023 11:45 AM EST us Jasen Blanco MD LAB BLOOD ORDERABLES Fin al Result [facility] [address] [place] [address] from Last 3 Months or Most Recently Relevant to Health Maintenance Insurance [id number] [id number] ANTHEM Member Subscriber Plan / Payer (Ef fective 2024-Present) Name:Mindy Wade Relation to Subscriber:Self Name:Mindy Wade Payer ID:[id number] (NAIC) Type:Not on file Address: [place] [phone] [id number] Care Teams Lead Process Engineer Relationship Specialty Start Date End Date Yonatan Graves DO [address] [place] [address] [address] [place] [address] PCP - General 09/24/22 Adryan Bearden PA [address] [place] [address] Referring Physician Gastroenterology 09/24/22
--- OUTSIDE RECORDS SUMMARY | 2025-01-12 14:59 | XMS_ITS | Data Portability ---
Author Organization [place] - [facility] [place] [facility] [place] [facility] ADMIN Address [address] [place] [id number] Care Team Providers Care Service Station Console Operator Name Role Phone GEOFF GRAVES Primary [...] liver & AFP now and q6 months. Not available 09/12/2022 17:33:36 09/20/2022 09/20/2022 32-year-old [...] -I have placed a referral to the [facility] for evaluation due to elevated MELD. -Ascites: [...] liver & AFP now and q6 months. Not available 09/20/2022 12:59:01 10/01/2022 10/01/2022 32-year-old [...] -not currently on anticoagulation. f/u 6 weeks [email or web address] Not available 10/01/2022 12:07:13 01/01/2023 01/01/2023 32-year-old [...] AFP mildly elevated at 16.2. Following with [facility] regarding LRADS-3 lesions x2. Surveillance MRI planned in 3 months. -Strict abstinence from alcohol was counseled. 2) Nausea: Will start Mirtazapine 15 mg p.o at bedtime for nausea, appetite. She may also derive benefit from this regarding her anxiety and insomnia. I have recommended she follow-up with her PCP regarding ongoing management of anxiety disorder. 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 [email or web address] Not available 01/01/2023 16:09:33 Plan of Treatment Reminders Order Date Submit Date Provider Last Modified By Organization Details Last Modified Time Details Appointments None recorded. Lab afp (alpha-feto protein) tumor marker, serum or plasma [address] (Registration ), [address], [place], [address], 13:23:21 PT/INR [address] (Registration ), [address], [place], [address], 13:23:22 CMP, serum or plasma 2022 023 [facility] (Registration ), [address], [place], [address], 3 14:37:57 CBC [address] (Registration ), [address], [place], [address], 3 13:23:22 hemochromat osis mutation (hfe), blood/tissu e [address] (Registration ), [address] [place], [address], 13:23:22 alpha 1 antitrypsin , QN, serum or plasma [address] (Registration ), [address] , [place], [address], 3 13:23:22 alpha 1 antitrypsin phenotyping , serum or plasma [address] (Registration ), [address], [place], [address], 3 13:23:22 ceruloplasm in, serum [address] (Registration ), [address], [place], [address], 3 13:23:23 hepatitis C genotype, serum or plasma [address] (Registration ), [address] , [place], [address], 3 13:23:23 hepatitis C RNA, quant, PCR, serum - Please order HCV RNA quant reflex to genotype [address] (Registration ), [address] , [place], [address], 3 13:23:23 HBsAg (hepatitis B surface Ag), serum [address] (Registration ), [address], [place], [address], 3 13:23:23 hepatitis B virus surface Ab, QN, serum [address] (Registration ), [address] , [place], [address], 3 13:23:23 hepatitis B core Ab, total, serum [address] (Registration ), [address], [place], [address], 3 13:23:24 hepatitis A Ab panel [address] (Registration ), [address], [place], [address], 3 13:23:24 hepatitis A virus Ab, IgM, QN, serum [address] (Registration ), [address], [place], [address], 3 13:23:24 BLUE (antinuclea r antibodies) panel, serum [address] (Registration ), [address], [place], [address], 3 13:23:24 IgG, QN, serum [address] (Registration ), [address], [place], [address], 3 13:23:24 actin smooth muscle IgG Ab, quant, serum [address] (Registration ), [address], [place], [address], 3 13:23:25 mitochondri al Ab, serum [address] (Registration ), [address] [place], [address], 3 13:23:25 liver kidney microsomal 1 Ab, quant, serum [address] (Registration ), [address] [place], [address], 3 13:23:25 HIV (1+2) Ab screen, serum [address] (Registration ), [address], [place], [address], 3 13:23:25 Referral None recorded. Procedures None recorded. Surgeries None recorded. Imaging US, abdomen - Please perform doppler ultrasonogr aphy to evaluate for possible Budd-Chiari syndrome 2022 023 [address] [email or web address] [facility] (Centralized Scheduling), [address], [place], [address], 3 13:03:35 Medication Orders mirtazapine 15 mg tablet 2022 023 [email or web address] [facility] #21404, [address] [facility] [address], [place], [place], [id number], 3 16:03:29 promethazin e 25 mg tablet 2022 023 [email or web address] [facility] #24958, [address] [facility] [address], [place], [place], [id number], 3 10:07:25 Lasix 20 mg tablet 2022 023 [email or web address] #81210, [address] [facility] [address], [place], [place], [id number], 3 10:07:26 spironolact one 50 mg tablet 2022 023 [email or web address] [facility] #38096, [address] [facility] [address], [place], [place], [id number], 3 10:09:06 Patient TargetsNo targets recorded. Patient Instructions Encounter Date Encounter Id Patient Instructions Last Modified By Organization Details Last Modified Time 01/01/2023 [id number] DATE OF OPERATIO N: 10/24/2022 SURGEON: Orlando [...] PATH showed Chronic gastritis and peptic duodenitis. [email or web address] Not available 01/01/2023 16:09:47 Reason for Referral None Reported. Results Created Date Observation Date Name Description Value Unit Range Abnormal Flag Note LastModifiedBy Organization Detail LastModifiedTime 09/19/1909/18/2022 CBC AUTO NO DIFF (HEMO GRAM) WBC 7.7 K/uL 4.0-10 .5 Not Available [facility] ([facility]) [address] [place], [address], 09/18/2022 13:10:14 09/19/19 23 09/18/2022 CBC AUTO NO DIFF (HEMO GRAM) RBC 3.5 M/mm3 4.2-6. 4 low Not Available [facility] ([facility]) [address] [place], [address], 09/18/2022 13:10:14 09/19/19 23 09/18/2022 CBC AUTO NO DIFF (HEMO GRAM) HGB 12.6 gm/dL 12.5-1 6.0 Not Available [facility] ([facility]) [address] , [place], [address], 09/18/2022 13:10:14 09/19/19 23 09/18/2022 CBC AUTO NO DIFF (HEMO GRAM) HCT 38.6 % 37.0-4 7.0 Not Available [facility] ([facility]) [address], [place], [address], 09/18/2022 13:10:14 09/19/19 23 09/18/2022 CBC AUTO NO DIFF (HEMO GRAM) MCV 109.7 fL 78-100 high Not Available [facility] ([facility]) [address], [place], [address], 09/18/2022 13:10:14 09/19/19 23 09/18/2022 CBC AUTO NO DIFF (HEMO GRAM) MCH 35.8 pg 27-31 high Not Available [facility] ([facility]) [address], [place], [address], 09/18/2022 13:10:14 09/19/19 23 09/18/2022 CBC AUTO NO DIFF (HEMO GRAM) MCHC 32.6 g/dL 32-36 Not Available [facility] ([facility]) [address], [place], [address], 09/18/2022 13:10:14 09/19/19 23 09/18/2022 CBC AUTO NO DIFF (HEMO GRAM) RDW 14.4 % 11.5-1 4.0 high Not Available [facility] ([facility]) [address] [place], [address], 09/18/2022 13:10:14 09/19/19 23 09/18/2022 CBC AUTO NO DIFF (HEMO GRAM) platelet count 90 K/uL 150-45 0 low Not Available [facility] ([facility]) [address], [place], [address], 09/18/2022 13:10:14 09/19/19 23 09/18/2022 CBC AUTO NO DIFF (HEMO GRAM) manual differential NO Not Available [facility] ([facility]) [address] , [place], [address], 09/18/2022 13:10:14 09/19/19 23 09/18/2022 PT (PROT HROMB IN TIME) W INR prothrombin time 15.3 secon ds 9.3-11 .4 high Not Available [facility] ([facility]) [address] , [place], [address], 09/18/2022 13:40:36 09/19/19 23 09/18/2022 PT (PROT [...] Mecha nical Heart Valve s Not Available [facility] ([facility]) [address], [place], [address], 09/18/2022 13:40:36 09/19/19 23 09/18/2022 COMP METAB OLIC PANEL sodium 137 mmol/ L 136-14 5 Not Available [facility] ([facility]) [address], [place], [address], 09/18/2022 13:44:04 09/19/19 23 09/18/2022 COMP METAB OLIC PANEL potassium 3.6 mmol/ L 3.6-5. 0 Not Available [facility] ([facility]) [address] [facility], [place], [address], 09/18/2022 13:44:04 09/19/19 23 09/18/2022 COMP METAB OLIC PANEL chloride 103 mmol/ L 98-107 Not Available [facility] ([facility]) [address] , [place], [address], 09/18/2022 13:44:04 09/19/19 23 09/18/2022 COMP METAB OLIC PANEL carbon dioxide 27.0 mmol/ L 21.0-3 2.0 Not Available [facility] ([facility]) [address] , [place], [address], 09/18/2022 13:44:04 09/19/19 23 09/18/2022 COMP METAB OLIC PANEL anion gap 10.6 Not Available [facility] ([facility]) [address] , [place], [address], 09/18/2022 13:44:04 09/19/19 23 09/18/2022 COMP METAB OLIC PANEL glucose 109 mg/dL 70-120 Not Available [facility] ([facility]) [address] , [place], [address], 09/18/2022 13:44:04 09/19/19 23 09/18/2022 COMP METAB OLIC PANEL BUN 6 mg/dL 7-18 low Not Available [facility] ([facility]) [address] , [place], [address], 09/18/2022 13:44:04 09/19/19 23 09/18/2022 COMP METAB OLIC PANEL creatinine 0.7 mg/dL 0.6-1. 3 Not Available [facility] ([facility]) [address] , [place], [address], 09/18/2022 13:44:04 09/19/19 23 09/18/2022 COMP METAB OLIC PANEL glomerular filtration rate >60 mlper min 60- Not Available [facility] ([facility]) [address] , [place], [address], 09/18/2022 13:44:04 09/19/19 23 09/18/2022 COMP METAB OLIC PANEL total protein 8.1 g/dL 6.4-8. 2 Not Available [facility] ([facility]) [address] , [place], [address], 09/18/2022 13:44:04 09/19/19 23 09/18/2022 COMP METAB OLIC PANEL albumin 3.0 g/dL 3.4-5. 0 low Not Available [facility] ([facility]) [address] , [place], [address], 09/18/2022 13:44:04 09/19/19 23 09/18/2022 COMP METAB OLIC PANEL globulin 5.1 Not Available [facility] ([facility]) [address], [place], [address], 09/18/2022 13:44:04 09/19/19 23 09/18/2022 COMP METAB OLIC PANEL alb/glob ratio 0.6 0.7-2 low Not Available [facility] ([facility]) [address], [place], [address], 09/18/2022 13:44:04 09/19/19 23 09/18/2022 COMP METAB OLIC PANEL calcium 8.4 mg/dL 8.5-10 .5 low Not Available [facility] ([facility]) [address], [place], [address], 09/18/2022 13:44:04 09/19/19 23 09/18/2022 COMP METAB OLIC PANEL bilirubin total 4.30 mg/dL 0.10-1 .00 high Not Available [facility] ([facility]) [address] [facility], [place], [address], 09/18/2022 13:44:04 09/19/19 23 09/18/2022 COMP METAB OLIC PANEL AST (SGOT) 110 U/L 0-37 high Not Available [facility] ([facility]) [address] , [place], [address], 09/18/2022 13:44:04 09/19/19 23 09/18/2022 COMP METAB OLIC PANEL ALT (SGPT) 53 U/L 0-65 Not Available [facility] ([facility]) [address], [place], [address], 09/18/2022 13:44:04 09/19/19 23 09/18/2022 COMP METAB OLIC PANEL alk phosphatase 141 U/L 46-116 high Not Available [facility] ([facility]) [address], [place], [address], 09/18/2022 13:44:04 09/19/19 23 09/19/2022 HCV RNA QUANT , RT-PC R [id number] HCV Not Detect ed IU/mL Not Available [facility] ([facility]) [address], [place], [address], 09/19/2022 19:10:11 09/19/19 23 09/19/2022 HCV RNA QUANT , RT-PC R test information Commen t . The quant itati ve range of this assay is 15 IU/mL to 100 perlita on IU/mL . Perfo rmed at: [facility] [place] [address] [facility] [place] [address] Lab Direc tor: Shira ward MD, Phone : [phone] Not Available [facility] ([facility]) [address], [place], [address], 09/19/2022 19:10:11 09/19/19 23 09/20/2022 HCV RNA BY PCR, QN RFX DONN HCV log 10 TNP log10 _IU/m L Unabl e to calcu late resul t since non-n umeri c resul t obtai gilbert for compo nent test. Not Available [facility] ([facility]) [address], [place], [address], 09/20/2022 17:10:59 09/19/19 23 09/20/2022 HCV RNA BY PCR, QN RFX DONN test information Commen t . The quant itati ve range of this assay is 15 IU/mL to 100 perlita on IU/mL . Not Available [facility] ([facility]) [address], [place], [address], 09/20/2022 17:10:59 09/19/19 23 09/20/2022 HCV RNA BY PCR, QN RFX DONN HCV genotype TNP Not indic ated Perfo rmed at: - [facility] [place] [address] [facility] , [place] [address] Lab Direc tor: Shira ward MD, Phone : [phone] Not Available [facility] ([facility]) [address] [facility], [place], [address], 09/20/2022 17:10:59 09/19/19 23 09/20/2022 HCV RNA BY PCR, QN RFX DONN [id number] HCV Not Detect ed IU/mL Not Available [facility] ([facility]) [address] [facility], [place], [address], 09/20/2022 17:10:59 09/19/19 23 09/30/2022 BLUE COMPR EHENS REINA PANEL anti-ds DNA Ab <1 IU/mL 0-9 Negat reina <5 Equiv ocal 5 - 9 Posit reina >9 Negat reina <5 Equiv ocal 5 - 9 Posit reina >9 Not Available [facility] ([facility]) [address] [facility], [place], [address], 09/30/2022 19:09:30 09/19/19 23 09/30/2022 BLUE COMPR EHENS REINA PANEL disposal man Ab <0.2 ai 0.0-0. 9 Not Available [facility] ([facility]) [address] [place], [address], 09/30/2022 19:09:30 09/19/19 23 09/30/2022 BLUE COMPR EHENS REINA PANEL hsu Ab <0.2 ai 0.0-0. 9 Not Available [facility] ([facility]) [address] [facility], [place], [address], 09/30/2022 19:09:30 09/19/19 23 09/30/2022 BLUE COMPR EHENS REINA PANEL antisclerode rma-70 Ab <0.2 ai 0.0-0. 9 Not Available [facility] ([facility]) [address] [facility], [place], [address], 09/30/2022 19:09:30 09/19/19 23 09/30/2022 BLEU COMPR EHENS REINA PANEL sjogren's anti-ss-A <0.2 ai 0.0-0. 9 Not Available [facility] ([facility]) [address] [facility], [place], [address], 09/30/2022 19:09:30 09/19/19 23 09/30/2022 BLUE COMPR EHENS REINA PANEL sjogren's anti-ss-B <0.2 ai 0.0-0. 9 Not Available [facility] ([facility]) [address] [place], [address], 09/30/2022 19:09:30 09/19/19 23 09/30/2022 BLUE COMPR EHENS REINA PANEL antichromati n Ab <0.2 ai 0.0-0. 9 Not Available [facility] ([facility]) [address] [place], [address], 09/30/2022 19:09:30 09/19/19 23 09/30/2022 BLUE COMPR EHENS REINA PANEL anti-wellington-1 <0.2 ai 0.0-0. 9 Not Available [facility] ([facility]) [address] [place], [address], 09/30/2022 19:09:30 09/19/19 23 09/30/2022 BLUE COMPR EHENS REINA PANEL anti-centrom ere B antibodies <0.2 ai 0.0-0. 9 Not Available [facility] ([facility]) [address], [place], [address], 09/30/2022 19:09:30 09/19/19 23 09/30/2022 BLUE COMPR EHENS REINA PANEL see below: ANALILIA [facility]aj[facility] ntritao dy [employer] se Ass[facility] iatio n ----- ----- ----- ----- ----- ----- ----- ----- ----- ----- ----- ----- Condi tion Frequ ency ----- ----- ----- ----- - ----- ----- ----- ----- ---- ----- ---- Antin uclea r Antib nia, SLE, mixed conne ctive Direc t (BLUE- D) chapo e julian arango ----- ----- ----- ----- - ----- ----- [...] ----- ----- ----- ----- --- ----- ---- PREMIX OPERATOR CONCENTRATE Mixed Conne ctive Tissu e Disea se 95% (U1 nRNP, SLE 30 - 50% anti- ribon ucleo prote in) Polym yosit is and/o r [place] tomyo sitis 20% ----- ----- ----- ----- - ----- ----- ----- ----- ---- ----- ---- Scl-7 0 (anti DNA Scler oderm a (diff use) 20 - 35% topoi gila ase) Crest 13% ----- ----- ----- ----- - ----- ----- ----- ----- ---- ----- ---- [place]-1 Polym yosit is and/o r [place] tomyo sitis 20 - 40% ----- ----- ----- ----- - ----- ----- ----- ----- ---- ----- ---- Centr omere B Scler oderm a - Crest varia nt 80% Perfo rmed at: [facility] Margie manuel [address] [place] [address] Lab Direc tor: Rian edwards PhD, Phone : [phone] . Autoa ntritao jorge a Disea se Assoc iatio n ----- ----- ----- ----- ----- ----- ----- ----- ----- ----- ----- ----- Condi tion Lisbeth ency ----- ----- ----- ----- - ----- ----- ----- ----- ---- ----- ---- Antin uclea r Malick nia, SLE, mixed angiee taylor Direc t (BLUE- D) chapo e disea nba [...] ----- ----- ----- ----- --- ----- ---- PREMIX OPERATOR CONCENTRATE Mixed Conne ctive Tissu e Disea se 95% (U1 nRNP, SLE 30 - 50% anti- ribon ucleo prote in) Polym yosit is and/o r [place] tomyo sitis 20% ----- ----- ----- ----- - ----- ----- ----- ----- ---- ----- ---- Scl-7 0 (anti DNA Scler oderm a (diff use) 20 - 35% topoi gila ase) Crest 13% ----- ----- ----- ----- - ----- ----- ----- ----- ---- ----- ---- [place]-1 Polym yosit is and/o r [place] tomyo sitis 20 - 40% ----- ----- ----- ----- - ----- ----- ----- ----- ---- ----- ---- Centr omere B Scler oderm a - Crest varia nt 80% Perfo rmed at: [facility] [facility] [address] [facility], [place] [address] Lab Direc tor: Rian edwards PhD, Phone : [phone] Not Available [facility] ([facility]) [address] [facility], [place], [address], 09/30/2022 19:09:30 09/19/19 23 09/27/2022 A1A DEFIC ENCY CAMILO [place], DNA analysis Analilia t Resul t: c.109 6 G>A (p.Gl u366L ys), Z allel e - Not detec alea c.863 A>T (p.Gl u288V al), S allel e - Not detec alea Not assoc iated with incre ased risk of devel oping clini kimberly relev ant sympt oms of alpha -1 antit rypsi n defic iency . See Addit ional Clini rudi Infor reyna n and Comme nts. Not Available [facility] ([facility]) [address], [place], [address], 09/27/2022 17:10:29 09/19/19 23 09/27/2022 A1A DEFIC ENCY PROFI LE additional information: Commen t . Addit ional Clini rudi Infor reyna n: Alpha -1 antit rypsi n defic [...] ders to discu ss resul ts at 1800 -345- GENE (4363 ). . Test Detai ls: Two varia [...] es in the SERPI NA1 gene ([id number]) was perfo rmed by multi plex [...] e piter cteri stics deter mined by [employer] [employer] [facility] [facility] [employer] [facility]. It has not been clear ed or appro branden by the Food and Drug Admin istra tion. . Refer ences : Jennifer antony RA, Satya Sosa, James ly ML, Elkhorn s M, Cross CE, Michelle an K, Doyle th DK, Tim t SL, Deandra s JM, Genesis HUSAIN, Lashae crabtree C, Saurav Shabazz. The Diagn osis and Manag ement of Alpha -1 Antit rypsi n Defic iency in the Adult . Chron ic Obstr Pulm Dis. 2016 Nov 26;3(3 ):668 -682. doi: 10.15 326/j copdf .3.3. 2014. 0182. PMID: 54445 891; PMCID : PMC55 25246 . Genesis HUSAIN, Iraj samuels V, Montez LOCK. Alpha -1 Antit rypsi n Defic iency . 2005Apr 18 Updat ed 2019November 10 . In: Eliezer MP, Cassandra dey HH, Luis CLARK, et al., hallie rs. GeneR anaw s(R) Inter net . Cadence singh ([place]): [facility]; 1992- 2020. Avail able from: https ://vicky w.wab i.nlm .nih. gov/b ooks/ NBK15 19/ Not Available [facility] ([facility]) [address] [facility], [place], [address], 09/27/2022 17:10:29 09/19/19 23 09/27/2022 A1A DEFIC ENCY PROFI LE electronical ly signed by: Analilia faustin, PhD, FAC Not Available [facility] ([facility]) [address] [facility], [place], [address], 09/27/2022 17:10:29 09/19/19 23 09/27/2022 A1A DEFIC ENCY PROFI LE a1a rfx to phenotype Not Indica alea Perfo rmed at: - [facility] [address] [facility] , [place] [address] Lab Direc tor: Shira ward MD, Phone : [phone] Perfo rmed at: - [facility] [address] [place] [address] Lab Direc tor: Aurea Durbinkaleb [facility] , Phone : [phone] Not Available [facility] ([facility]) [address] [facility], [place], [address], 09/27/2022 17:10:29 09/19/19 23 09/27/2022 A1A DEFIC ENCY PROFI LE mmjje-9-hyms trypsin,seru m 140 mg/dL 100-18 8 Not Available [facility] ([facility]) [address] [facility], [place], [address], 09/27/2022 17:10:29 09/19/19 23 09/30/2022 HIV 1 HIV screen 4TH generation wrfx Non Reacti ve non reacti ve HIV Negat reina HIV-1 /HIV- 2 antib odies and HIV-1 p24 antig en were NOT detec alea. There is no labor atory evide nce of HIV infec tion. Perfo rmed at: [place] [id number] [place], [place] [id number] Lab Direc tor: Rian edwards PhD, Phone : [phone] HIV Negat reina HIV-1 /HIV- 2 antib odies and HIV-1 p24 antig en were NOT detec alea. There is no labor atory evide nce of HIV infec tion. Perfo rmed at: [facility] [address] [place], [place] [address] Lab Direc tor: Rian edwards PhD, Phone : [phone] Not Available [facility] ([facility]) [address], [place], [address], 09/30/2022 19:09:35 09/19/19 23 09/30/2022 MITOC HONDR IAL ANTIB ODIES mitochondria l (M2) Ab <20.0 units 0.0-20 .0 Negat reina 0.0 - 20.0 Equiv ocal 20.1 - 24.9 Posit reina >24.9 . Mitoc hondr ial (M2) Antib odies are found in 90-96 % of patie nts with prima ry bilia ry cirrh osis. Perfo rmed at: [facility] [address] [place] [address] Lab Direc tor: Rian edwards PhD, Phone : [phone] Negat reina 0.0 - 20.0 Equiv ocal 20.1 - 24.9 Posit reina >24.[address] [facility] hondr ial (M2) Antib odies are found in 90-96 % of patie nts with prima ry bilia ry cirrh osis. Perfo rmed at: [facility] n [address] [place] [address] Lab Direc tor: Rian edwards PhD, Phone : [phone] Not Available [facility] ([facility]) [address] [place], [address], 09/30/2022 19:09:33 09/19/19 23 09/27/2022 HEP B S AB JIMMIE hep B surface Ab <3.1 mIU/m L immuni ty>9.9 low Statu s of Immun ity Anti- HBs Level ----- ----- ----- --- ----- ----- ---- Incon siste nt with Immun ity 0.0 - 9.9 Consi stent with Immun ity >9.9 Perfo rmed at: [facility] [address] [place] [address] Lab Direc tor: Rian edwards PhD, Phone : [phone] Not Available [facility] ([facility]) [address] [facility], [place], [address], 09/27/2022 17:11:37 09/19/19 23 09/30/2022 IGG IgG 2545 mg/dL 586-16 02 high Perfo rmed at: [facility] n [address] [place] [address] Lab Direc tor: Rian edwards PhD, Phone : [phone] Perfo rmed at: [facility] [place] n [email or web address], [place] [address] 1269 Lab Direc tor: Rian edwards PhD, Phone : [phone] Not Available [facility] ([facility]) [address], [place], [address], 09/30/2022 19:10:43 09/19/19 23 09/30/2022 CERUL OPLAS MIN ceruloplasmi n 22.2 mg/dL 19.0-3 9.0 Perfo rmed at: [facility] Labga rp [place] n [email or web address], [facility] [place] [address] 1264 Lab Direc tor: Rian edwards PhD, Phone : [phone] Perfo rmed at: [facility] [place] [email or web address] [facility], [facility] [place] [address] 1269 Lab Direc tor: Rian edwards PhD, Phone : [phone] Not Available [facility] ([facility]) [address] [facility], [place], [address], 09/30/2022 19:10:41 09/19/19 23 09/27/2022 HEPAT ITIS B SURFA CE AG EIA HBsAg screen Negati ve negati ve Perfo rmed at: [facility] [place] [email or web address], [facility] [place] [address] 126 Lab Direc tor: Rian edwards PhD, Phone : [phone] Not Available [facility] ([facility]) [address] [facility], [place], [address], 09/27/2022 17:11:39 09/19/19 23 09/27/2022 HEP A AB, TOTAL hep A Ab, total Positi ve negati ve delta Perfo rmed at: [facility] Labga rp [place] [email or web address], [place] [address] 1265 Lab Direc tor: Rian edwards PhD, Phone : [phone] Not Available [facility] ([facility]) [address] , [place], [address], 09/27/2022 17:11:40 09/19/19 23 09/27/2022 HEP A AB, IGM hep A Ab, IgM Negati ve negati ve Perfo rmed at: [facility] [email or web address] [facility], [place], [place] [address] 9670 Lab Direc tor: Rian edwards PhD, Phone : [phone] Not Available [facility] ([facility]) [address], [place], [address], 09/27/2022 17:11:41 09/19/19 23 09/30/2022 HEP B S AB JIMMIE hep B surface Ab <3.1 mIU/m L immuni ty>9.9 low Statu s of Immun ity Anti- HBs Level ----- ----- ----- --- ----- ----- ---- Incon siste nt with Immun ity 0.0 - 9.9 Consi stent with Immun ity >9.9 Perfo rmed at: [facility] [address] [place] [address] 1261 Lab Dire tor: Rian edwards PhD, Phone : [phone] Statu s of Immun ity Anti- HBs Level ----- ----- ----- --- ----- ----- ---- Incon siste nt with Immun ity 0.0 - 9.9 Consi stent with Immun ity >9.9 Perfo rmed at: [facility] [address] [place], [place] [address] 6429 Lab Direc tor: Rian edwards PhD, Phone : [phone] Not Available [facility] ([facility]) [address], [place], [address], 09/30/2022 19:09:31 09/19/19 23 09/30/2022 ACTIN (SMOO [...] bilia ry cirrh osis. Perfo rmed at: [facility] [address] [place] [address] 1265 Lab Direc tor: Rian edwards PhD, Phone : [phone] Not Available [facility] ([facility]) [address] [facility], [place], [address], 09/30/2022 19:09:32 09/19/19 23 09/30/2022 LIVER -KIDN EY MICRO AB liver-kidney microsomal Ab 1.6 units 0.0-20 .0 Negat reina 0.0 - 20.0 Equiv ocal 20.1 - 24.9 Posit reina >24.9 . LKM type 1 antib odies are detec alea in patie nts with autoi mmune hepat itis type 2 and in up to 8% of patie nts with chron ic HCV infec tion. Perfo rmed at: [facility] [address] [place] [address] 1260 Lab Direc tor: Rian edwards PhD, Phone : [phone] Not Available [facility] ([facility]) [address] [facility], [place], [address], 09/30/2022 19:10:38 09/19/19 23 09/30/2022 HERED ITARY [...] rudi sympt oms typic ally appea r betwe en 40 to 60 years in males [...] ders to discu ss resul ts at [phone] [phone] (4363 ). . Test Detai ls: Three varia nts melvin zed: c.845 G>A (p.Cy s282T yr), commo nly refer red to as C282Y c.187 C>G (p.Hi s63As p), commo nly refer red to as H63D c.193 A>T (p.Se r65Cy s), commo nly refer red to as S65C . Metho ds/Li mitat ions: DNA Melvin sis of the HFE gene ([id number]) was perfo rmed by PCR ampli [...] Refer ences : Joselito BR, Shyam PC, Lucas ey [place], Levi lerma LW, Chiara lerma ; [facility]a can [employer] i[employer] n for the Study of Liver Disea ses. Diagn osis and manag ement of hemoc hroma tosis : 2010 pract ice guide line by the [employer] i[employer] n for the Study of Liver Disea ses. Hepat ology . 2010;5 4(1): 328-4 3. doi: 10.10 02/madison p.243 30. PMID: 48579 290; PMCID : PMC31 58833 . Indio G, Ventura roger P, Zeina bay DW, Alfred cardona H, Yoan lam O, Nikos manuel S, Cha o I, Joyce s M, Roni y S. EMQN best pract ice guide lines for the molec ular naomie ic diagn osis of hered itary hemoc hroma tosis (HH). Eur J Hum Naomie . 2016 Sep;2 4(4): 479-9 5. doi: 10.10 /ej hg.20 15.12 8. Epub 2014Dec 28. PMID: 96553 218; PMCID : PMC49 10699 . . Mila manuel, PhD, FACMG Pipe Vincent , PhD Braulio meraz, PhD, FACMG Dean faustin, PhD, FACMG Leonel monk, PhD, FACMG W Josh Temple, PhD, FACMG Catrina Courtney, PhD, FACMG Jet marin, PhD, FACMG Perfo rmed at: [facility] RTP [address] [facility] , [place] [address] 6700 Lab Direc tor: Aurea Persaud [facility] , Phone : [phone] Not Available [facility] ([facility]) [address] [facility], [place], [address], 09/30/2022 19:10:40 09/19/19 23 09/30/2022 HEPAT ITIS B SURFA CE AG EIA HBsAg screen Negati ve negati ve Perfo rmed at: [facility] [address] [facility], [place] [address] 8369 Lab Direc tor: Rian edwards PhD, Phone : [phone] Perfo rmed at: [facility] n [address] [facility], [facility] [place] [address] 1269 Lab Direc tor: Rian edwards PhD, Phone : [phone] Not Available [facility] ([facility]) [address], [place], [address], 09/30/2022 19:10:44 09/19/19 23 09/30/2022 HEP A AB, TOTAL hep A Ab, total Positi ve negati ve delta Perfo rmed at: [facility] n [address] [facility], [facility] [place] [address] 1269 Lab Direc tor: Rian edwards PhD, Phone : [phone] Perfo rmed at: [facility] n [address] [facility], [facility] [place] [address] 1269 Lab Direc tor: Rian edwards PhD, Phone : [phone] Not Available [facility] ([facility]) [address], [place], [address], 09/30/2022 19:10:45 09/19/19 23 09/30/2022 HEP A AB, IGM hep A Ab, IgM Negati ve negati ve Perfo rmed at: [facility] n [address] [facility], [facility] [place] [address] 1269 Lab Direc tor: Rian edwards PhD, Phone : [phone] Perfo rmed at: [facility] n [address] [facility], [facility] [place] [address] 1269 Lab Direc tor: Rian edwards PhD, Phone : [phone] Not Available [facility] ([facility]) [address], [place], [address], 09/30/2022 19:10:45 09/19/19 23 10/12/2022 HEP B CORE AB IGM QUAL hep B core Ab, IgM TNP negati ve TEST NOT PERFO RMED QNS Quant ity Not Suffi cient Not Available [facility] ([facility]) [address], [place], [address], 10/12/2022 15:08:25 09/19/19 23 11/21/2022 A1A PHENO TYPE CONFI RMATI ON a1a phenotype confirmation SEE RHYS Luna RPT Not Available [facility] ([facility]) [address], [place], [address], 11/21/2022 17:31:55 10/12/19 23 10/11/2022 US, liver [facility] [address] [place] [address] Phone: Fax: Name: CORIE WADE Exam Date: : [birth year] 90 Age 32 Gender : F Access ion: [id number] Physic francisca: ADRYAN BEARDEN Facili ty: [facility] Facili ty HSV: Outpat ient Exam: [...] Thank you for referr CORIE Moscoso to [facility] it Hospit al. Legall y authen ticate d by POPE ASHWINI Ruiz 2022-0 10-11 15:25: 05 CC'ed Logic: Orderi ng Provid er: SILVER LOCKWOOD Attend ing Provid er: BEARDEN ADRYAN Admitt ing Provid er: SILVER LOCKWOOD [email or web address] [facility] - Physical Therapy [address], [place], [address], 10/15/2022 17:05:43 Result Notes None recorded. 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 Adryan Bearden PA-C [address], [place], [address] , [place] 3 14:22:25 Ascites 615331769 Active 2022 Adryan Bearden PA-C [address], [place], [address] , [place] 3 14:22:43 Portal hypertension 84662511 Active 2022 Adryan Bearden PA-C [address], [place], [address] , [place] 3 14:22:49 Streptococcal sore throat 34708090 Active 2022 Adryan Bearden PA-C [address] , [place], [address] , [place] 3 13:22:22 Nausea 808991169 Active 2022 Adryan Bearden PA-C [address], [place], [address] , [place] 3 11:21:14 Cholelithiasi s without obstruction 94552299 Active 2022 Adryan Bearden PA-C [address], [place], [address] , [place] 3 17:12:20 Disorder of gallbladder 81977385 Active 2022 Adryan Bearden PA-C [address], [place], [address] , [place] 3 13:30:25 Lesion of liver 195840854 Active 2022 Adryan Bearden PA-C [address], [place], [address] , [place] 3 13:30:30 Problem Notes None recorded. Procedures Surgical History Date Name Laterality Status Provider Name and Address Organization Details Recorded Time 06/23/19 13 Appendectomy completed Georgina Alfaropool [place] 10/22/2022 10:07:27 06/23/19 13 Abdominal Surgery completed Georgina Alfaropool [place] 10/22/2022 10:07:27 06/23/19 12 Other completed Gerogina Alfaropool [place] 10/22/2022 10:07:27 06/23/19 11 Other completed Georgina Alfaropool [place] 10/22/2022 10:07:27 06/23/19 10 Other completed Georgina Pattie [place] 10/22/2022 10:07:27 06/23/19 08 ENT Surgery completed Georgina Alfaropool [place] 10/22/2022 10:07:27 Imaging Results None recorded. Procedure Notes None recorded. Medical Equipment None Reported. Allergies Allergen ID Allergen Name Allergen Category Reaction Reaction Severity Criticality Documentation Date Start Date Code Code System Note Provider Name and Address Organization Details Recorded Time 78772 amoxicill in medicatio n Not available Not available Not available 10/22/2022 723 RxNorm Georgina gutierres, [place] 3 10:07:25 Medications Name Sig Start Date [...] blood by Pulse oximetry Heart rate Systolic And Diastolic Provider Name and Address Organization Details Last Updated DateTime 3 167.64 cm 25.8 kg/m2 43950.7 g 97 % 97 % 131 /min 122/78 mm[Hg] Cat ORTEZ [facility] [place] 3 13:51:59 Date Recorded Body height Body mass index (BMI) Body weight Body temperature Oxygen saturation Oxygen saturation in Arterial blood by Pulse oximetry Heart rate Systolic And Diastolic Provider Name and Address Organization Details Last Updated DateTime 3 167.64 cm 23.7 kg/m2 32869.0 8 g 99.6 [degF] 100 % 100 % 112 /min 124/78 mm[Hg] Georgina ORTEZ [facility] [place] 3 10:06:50 Social History Question Answer Notes LastModified by Selatra Details LastModified Time Tobacco Smoking Status Former Smoker Georgina gutierres, SIVA ORTEZ [facility] [place] 10/22/2022 10:07:27 Do You Have An Advance Directive? No Information not available 10/22/2022 Are You Blind Or Do You Have Difficulty Seeing? No Information not available 10/22/2022 What Was The Date Of Your Most Recent Tobacco Screening? 09/12/2022 Information not available 10/22/2022 Are You Passively Exposed To Smoke? Yes Information not available 10/22/2022 How Much Tobacco Do You Smoke? No Information not available 10/22/2022 Sex: Female Functional Status Question Answer Note LastModified by Organizat [email or web address] Details LastModified Time Do you use any illicit or recreational drugs? No Information not available 10/22/2022 What is your level of alcohol consumption? Occasional Information not available 10/22/2022 What is your exercise level? Occasional Information not available 10/22/2022 Mental Status Question Answer Note LastModified by Organization D etails LastModified Time Do you feel stressed (tense, restless, nervous, or anxious, or unable to sleep at night)? [id number] Information not available 10/22/2022 Family History Relationship Description Onset Age of [...] SNOMED-CT Code Diagnosis ICD10 Code Diagnosis Note [id number] Adryan Bearden PA-C [facility] [address] [place] [address] 09/12/2022 13:31:15 09/12/2022 14:33:34 Cryptogenic cirrhosis 81770881 K74.69 History of hepatitis C 4370366056 9101 Z86.19 Ascites 331433583 R18.8 Portal hypertension 3474 2002 K76.6 History of deep vein thrombosis 452620094 Z86.718 Family his tory of cirrhosis of liver 5968365308 096134 Z83.79 [id number] Adryan Bearden PA-C [facility] [address] [place] [address] 09/20/2022 11:15:58 09/20/2022 11:30:31 Cryptogenic cirrhosis 62733751 K74.69 History of hepatitis C 8856153814 9101 Z86.19 Ascites 555477308 R18.8 Portal hypertension 3474 2002 K76.6 History of deep vein thrombosis 834840522 Z86.718 Family his tory of cirrhosis of liver 5971130509 104890 Z83.79 [id number] Adryan Bearden PA-C [facility] [address] [place] [address] 10/01/2022 10:52:21 10/01/2022 11:40:07 Cryptogenic cirrhosis 69496344 K74.69 History of hepatitis C 1148727050 9101 Z86.19 Ascites 609929603 R18.8 Portal hypertension 3472002 K76.6 History of deep vein thrombosis 804618916 Z86.718 Family his tory of cirrhosis of liver 8419878417 364435 Z83.79 Nausea 282745972 R11.0 [id number] Kierra Robles MD [facility] General Surgery [address] [place] [address],[address] [place] [address] 10/22/2022 10:00:13 10/22/2022 10:53:49 Cholelithiasis without obstruction 25732334 K80.20 Known gallstones which are somewhat symptomati [...] consultati on with the liver surgeons at [facility]. Patient had concerns about undergoing anesthesia for EGD. We did discuss necessity of EGD to evaluate for esophageal varices and the use of conscious sedation for this procedure. Cirrhosis of liver K74.60 Meld score of 16 per recent GI note. Portal hypertension 3472002 K76.6 I have reviewed the patient's recent ER visit, CT imaging, GI visit and lab work. Time spent in review and discussion with the patient was 50 minutes [id number] Adryan Bearden PA-C [facility] [address] [place] [address] 01/01/2023 13:25:17 01/01/2023 13:29:10 Cryptogenic cirrhosis 58956654 K74.69 History of hepatitis C 8469790955 9101 Z86.19 Ascites 722975069 R18.8 Portal hypertension 3474 2002 K76.6 History of deep vein thrombosis 207591724 Z86.718 Family his tory of cirrhosis of liver 3792635359 744488 Z83.79 Nausea 032893094 R11.0 Disorder o f gallbladder 44256907 K82.9 Lesion of liver 12531875 0 K76.9 Health Concerns Section Related Observation LastModified by Organization Detai ls LastModified Time None Recorded Concern Status LastModified by Organization Details LastModified Time None Recorded Advance Directives Directive N: Payers Insurance Date Sequence Insurance Name Policy Number Policy Kapadia Covered Member ID Kapadia Member ID Guarantor Name 01/01/2023 1 [facility] (MEDICAID REPLACEMENT - HMO) [id number] Mindy Pittman [id number] Mindy Wade Notes Date Note Type Note [...] issues, or leg cramps. Adryan Bearden PA-C [address], [place], [address], [place] 09/12/2022 17:33:55 09/20/2022 text/html PREVIOUS ( 3): [...] further disposition of care. Adryan Bearden PA-C [address] , [place], [address], [facility] - [facility] [place] 09/20/2022 12:59:18 10/01/2022 text/html PREVIOUS ( 3): [...] the Liver Transplant Clinic on November 01. I [...] further disposition of care. Adryan Bearden PA-C [address] , [place], [address], [place] 10/01/2022 12:09:02 10/22/2022 text/html 32-year-old vandana manuel [...] appointment scheduled to see liver transplant at [facility] later in the month. She is also scheduled for EGD with Dr. Saldaña to evaluate for esophageal varices later this week. Kierra Robles MD [facility], [place], [address], [place] [facility] 10/24/2022 13:09:58 01/01/2023 text/html PREVIOUS ( 3): [...] cirrhosis. She has established care with the [facility] liver transplant clinic. They have deferred transplant [...] further disposition of care. Adryan Bearden PA-C [address], [place], [address], [facility] - [facility] [place] 01/01/2023 16:10:15 OBGyn Episode No OBEpisode recorded.
--- OUTSIDE RECORDS SUMMARY | 2025-01-12 14:59 | XMS_ITS | Encounter Summary ---
Author Organization [facility] Address [address] [place] [address] Care Team Providers Care Quarry Supervisor Open Pit Name Role Phone Yonatan Graves DO Primary Care Provider Farida Ortega COLLISION REPAIR TECHNICIAN Unavailable [phone] Source Comments This information has been disclosed [...] release of HIV test results or diagnoses. [id number] Encounter Details Date Type Department Care Team (Late st Contact Info) Description 11/17/2024 Telephone [facility] Liver Transplant at [address] [place] [address] Brent Lamar RN Social History Tobacco Use Types Packs/Day [...] as of this encounter Progress Notes * Brent Lamar RN - 11/17/2024 3:49 PM EDT Call to patient to schedule new patient appointments in liver transplant clinic. Scheduled on 12-20-24 1:30 pm. Verified e-mail address and sent the new patient welcome e-mail with attached education. Encouraged patient and their support persons to view prior to their appointment. documented in this encounter Plan of Treatment Not on file documented as of this encounter Visit Diagnoses Not on filedocumented in this encounter Additional Health Concerns Assessment Noted Time PHQ-9 Depression Total Score: 13 025 2:00 PM EDT documented as of this encounter Care Teams Quarry Supervisor Open Pit Relationship Specialty Start Date End Date Yonatan Graves DO [address] [place] [address] PCP - General 09/02/23 Farida Ortega, COLLISION REPAIR TECHNICIAN [address] [place] [address] Referring Physician Gastroenterology 09/02/23 documented as of this encounter
--- OUTSIDE RECORDS SUMMARY | 2025-01-12 14:59 | XMS_ITS | Encounter Summary ---
Author Organization [facility] Address [address] [place] [id number] Care Team Providers Care Picker / Packer Name Role Phone Kierra Guajardo MD Primary Care Provide r Encounter Details Date Type Department Care Team (Late st Contact Info) Description 11/29/2024 Results Follow-Up [facility] [address] [place] [address] Pao Hanley, RESPIRATORY TECH [address] [facility] [address] [place] [address] Social History Tobacco Use Types Packs/Day Years Used Date Smoking Tobacco: Former Cigarettes Smokeless Tobacco: Never Alcohol Use Standard Drinks/Week Comments Not Currently 0 (1 standard drink = 0.6 oz pure alcohol) 4-6 wine coolers daily for several years [facility] Utilities Answer Date Recorded In the past 12 months has [employer], gas, oil, or water [employer] threatened to shut off services in your [...] medical care, and heating? Patient declined 08/05/2023 [facility] [place] of Occupat ional Health - Occupational Stress [...] GED or equivalent No 08/05/2023 Preferred Language Turkmen 08/05/2023 PHQ-2 Answer Date Recorded Retired PHQ-9: [...] documented as of this encounter Care Teams Picker / Packer Relationship Specialty Start Date End Date Kierra Guajardo MD [address] [place] [address] PCP - General Internal Medicine 10/23/23 documented as of this encounter
--- OUTSIDE RECORDS SUMMARY | 2025-01-12 15:00 | XMS_ITS | Encounter Summary ---
Author Organization [facility] Address [address] [place] [address] Care Team Providers Care Information Engineer Name Role Phone Yonatan Graves DO Primary Care Provider Adryan Bearden Unavailable Encounter Details Date Type Department Care Team ([facility] st Contact Info) Description 08/22/2022 Orders Only External Location [address] [place] [address] Yonatan Graves, DO [address] [place] [address] Social History Tobacco Use Types [...] filedocumented in this encounter Care Teams Information Engineer Relationship Specialty Start Date End Date Yonatan Graves DO [facility] [address] [place] [address] PCP - General 09/24/22 Adryan Bearden PA [address] [place], [place] [id number] Referring Physician Gastroenterology 09/24/22 documented as of this encounter
--- OUTSIDE RECORDS SUMMARY | 2025-01-12 15:00 | XMS_ITS | Encounter Summary ---
Author Organization [facility] Address [address] [place] [address] Care Team Providers Care Supervisor Waterworks Name Role Phone Yonatan Graves DO Primary Care Provider Farida Ortega METAL FURNITURE ASSEMBLY SUPERVISOR Unavailable [phone] Source Comments This information has been disclosed [...] release of HIV test results or diagnoses. [id number] Encounter Details Date Type Department Care Team (Late st Contact Info) Description 01/11/2025 Results Follow-Up [facility] Liver Transplant at [address] [address] Abdullahi Cano, KONSTANTIN X-ray Chest PA and Lateral Social History Tobacco Use Types Packs/Day Years [...] encounter Miscellaneous Notes * Telephone Encounter - Abdullahi Cano RN - 01/11/2025 12:42 PM EDT ----- Message from Terrie Kowalski MD sent at 01/11/2025 11:55 AM EDT ----- Regarding: LTBI treatment plan Hi Chaz, CXR was negative. She meets diagnosis of latent tuberculosis infection. As discussed, shortest regimen would be 3HP (3 months of weekly isoniazid + rifapentine). Note thatisoniazid will be 3 pills ([id number]), rifapentine will be 6 pills (162kaf2=768fk) + vitamin B6 (1pill) = total of 10 pills that she will take once a week. I sent prescription to her local pharmacy in [place], but please check with pt and may need to check with her pharmacy if they can get the meds. Sometimes rifapentine is hard to get and their best option will be to come to [facility] pharmacy (they usually have it). If needed please replace my prescription order. Before she starts the treatment get a urine test to document negative, and baseline LFT. Please monitor LFT monthly while on treatment. Monitoring compliance is flor. Could you/or someone from transplant pharmacy call her weekly to ensure that she took her dose for the corresponding week? And please document it in her chart. It is only 12 weeks/doses so need to ensure she completes regimen. If any problems arise feel free to contact me. All LTBI treatment regimens are potentially hepatotoxic, although 3HP is less than the traditional 9 months of daily isoniazid. Check LFTs monthly but if issues can always repeat LFTs sooner. Jesse, Frank. ----- Message ----- From: Interface, Results In Sent: 01/10/2025 4:34 PM EDT To: Frank Kowalski MD documented in this encounter Plan of Treatment Not on file documented as of this encounter Visit Diagnoses Not on filedocumented in this encounter Additional Health Concerns Assessment Noted Time PHQ-9 Depression Total Score: 13 025 2:00 PM EDT documented as of this encounter Care Teams Supervisor Waterworks Relationship Specialty Start Date End Date Yonatan Graves DO [address] [place] [address] PCP - General 09/02/23 Farida Ortega, METAL FURNITURE ASSEMBLY SUPERVISOR [address] [place] [address] Referring Physician Gastroenterology 09/02/23 documented as of this encounter
--- OUTSIDE RECORDS SUMMARY | 2025-01-12 15:00 | XMS_ITS | Encounter Summary ---
Author Organization [facility] Address [address] [place] [address] Care Team Providers Care Finish Repairer Name Role Phone Irineosmithroe Yonatan Joseph LLANES Primary Care Provider Farida Ortega VISUAL MERCHANDISE MANAGER Unavailable [phone] Source Comments This information has been disclosed [...] release of HIV test results or diagnoses. [id number] Health Encounter Details Date Type Department Care Team (Late st Contact Info) Description 12/20/2024 Nutrition [facility] Kidney Transplant at [address] [place] [phone] Yonatan Sarmiento, RD Social History Tobacco Use Types Packs/Day Years [...] as of this encounter Progress Notes * Yonatan Sarmiento, RD - 12/20/2024 11:59 PM EDT Initial Liver Transplant Nutrition Assessment HPI: Per MD note Pertinent Information: Chart reviewed per protocol to identify nutrition related risks prior to listing for liver transplant. Based on chart screening, interview with patient and collaboration with liver txp team, pt deemed appropriate for transplant from nutrition standpoint. Post transplant nutrition guidelines discussed and reviewed. No further nutrition related questions or concerns this encounter. Dietitian available for consultation on as needed basis as identified by the multidisciplinary team. Malnutrition Screening Tool Have you recently lost weight without trying? No 0 Unsure 2 If yes, how much weight have you lost? 2-13 lb 1 14-23 lb 2 24-33 lb 3 34 lb or more 4 Unsure 2 Weight loss score 0 2. Have you been eating poorly because of a decreased appetite? No 0 Yes 1 Appetite score 0 MST Score 0 MST Score 0 to 1 - Not at risk MST Score 2 or more - At risk HgbA1C: Lab Results Component Value Date HGBA1C 4.4 12/20/2024 Anthropometrics: Height Weight BMI 5' 5 (1.651 m) 152 lb (68.9 kg) 25.29 kg/m?? Weight History: Wt Readings from Last 6 Encounters: 01/10/25 152 lb (68.9 kg) 12/20/24 152 lb (68.9 kg) 08/18/24 149 lb (67.6 kg) 07/28/24 146 lb (66.2 kg) 05/12/24 156 lb (70.8 kg) 02/04/24 136 lb (61.7 kg) Pertinent Labs: Lab Results Component Value Date CREATININE 0.75 12/20/2024 BUN 9 12/20/2024 NA 138 12/20/2024 K 3.4 (L) 12/20/2024 Lab Results Component Value Date MG 1.7 09/01/2023 PHOS 2.4 12/20/2024 Lab Results Component Value Date ALT 20 12/20/2024 AST 35 12/20/2024 ALKPHOS 117 12/20/2024 BILITOT 3.4 (H) 12/20/2024 Lab Results Component Value Date ALBUMIN 3.8 12/20/2024 ALBUMIN 3.8 12/20/2024 Lab Results Component Value Date IWQF09R 28.0 (L) 12/20/2024 PMH: Past 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: Diagnosis Date Abdominal hernia 02/21/2023 Alcoholic hepatitis Anxiety Ascites Chronic diarrhea 08/21/2022 Cirrhosis (CMS-HCC) Cystitis Depression Hepatitis C Pertinent Medications: Home Medications Medication Sig Taking? Last Dose furosemide (LASIX) 20 MG tablet TAKE 3 TABLETS(60 MG) BY MOUTH TWICE DAILY gabapentin (NEURONTIN) 800 MG tablet Take 1 tablet (800 mg total) by mouth 3 times a day. ondansetron (ZOFRAN) 4 MG tablet Take 1 tablet (4 mg total) by mouth every 8 hours as needed for Nausea. ondansetron (ZOFRAN-ODT) 8 MG disintegrating tablet Take 1 tablet (8 mg total) by mouth every 8 hours as needed for Nausea. spironolactone (ALDACTONE) 50 MG tablet TAKE 3 TABLETS BY MOUTH TWICE DAILY Allergies[1] Food allergies/Intolerances: NKFA. Nutritional Intervention: Nutrition counseling with anticipative guidance/strategies to set appropriate goals and Post transplant diet guidelines Goals: Choose foods consistent with low sodium, high protein diet. Eat 4 to 5 small meals a day. Do not skip meals. Eat high-protein foods. (milk, eggs, cheese, meats, beans, nuts, peanut butter) Drink Medical Food supplements as needed. Include nutrient dense foods as discussed. Keep active as able/tolerated. Nutrition Related Risk Factors: None Jc Sarmiento RD, LD Clinical Dietitian - Solid Organ Transplant Contact via [employer] Chat [1] Allergies Allergen Reactions Amoxicillin Rash Morphine Rash Penicillins Rash documented in this encounter Plan of Treatment Not on file documented as of this encounter Visit Diagnoses Not on filedocumented in this encounter Additional Health Concerns Assessment Noted Time PHQ-9 Depression Total Score: 13 11/04/ 025 2:00 PM EDT documented as of this encounter Care Teams Finish Repairer Relationship Specialty Start Date End Date Yonatan Graves DO [address] [place] [address] PCP - General 09/02/23 Farida Ortega, VISUAL MERCHANDISE MANAGER [address] [place] [address] Referring Physician Gastroenterology 09/02/23 documented as of this encounter
--- OUTSIDE RECORDS SUMMARY | 2025-01-12 15:00 | XMS_ITS | Encounter Summary ---
Author Organization [facility] Address [facility] [place] [address] Care Team Providers Care Purchasing Assistant Name Role Phone Yonatan Graves DO Primary Care Provider Farida Ortega CONTROL MANAGER Unavailable [phone] Source Comments This information has been disclosed [...] release of HIV test results or diagnoses. [id number] Encounter Details Date Type Department Care Team (Late st Contact Info) Description 01/11/2025 Orders Only PROVID[facility] MEDICINE [address] [place] [phone] Frank Beltran MD [address] [place] [phone] Latent tuberculosis (Primary Dx) Social History Tobacco Use Types [...] meals, medication, transportation or medical equipment? No 06/30 /2025 Assistance needed for: Not on file 5 [...] as of this encounter Visit Diagnoses Diagnosis Latent tuberculosis- Primary Nonspecific reaction to tuberculin skin test without active tuberculosis documented in this encounter Additional Health Concerns Assessment Noted Time PHQ-9 Depression Total Score: 13 025 2:00 PM EDT documented as of this encounter Care Teams Purchasing Assistant Relationship Specialty Start Date End Date Yonatan Graves DO [address] [place] [address] PCP - General 09/02/23 Farida Ortega, CONTROL MANAGER [address] [place] [address] Referring Physician Gastroenterology 09/02/23 documented as of this encounter
--- OUTSIDE RECORDS SUMMARY | 2025-01-12 15:00 | XMS_ITS | Encounter Summary ---
Author Organization [facility] Address [address] [place] [address] Care Team Providers Care Environmental Studies Program Director Name Role Phone Yonatan Graves DO Primary Care Provider Farida Ortega MARQUETRY WORKER Unavailable [phone] Source Comments This information has been disclosed [...] release of HIV test results or diagnoses. [id number] Encounter Details Date Type Department Care Team (Late st Contact Info) Description 01/11/2025 Telephone [facility] Liver Transplant at [address] [place] [phone] Abdullahi Cano RN Social History Tobacco Use Types Packs/Day [...] Progress Notes * Abdullahi Cano RN - 01/11/2025 3:55 PM EDT Spoke with patient. She understands medications needed to help treat her + TB screening. She will go to her local lab abd get a test done prior to starting medications. She states she has her vitamin B medication and waiting on the other 2 to be received by her pharmacy. documented in this encounter Plan of Treatment Not on file documented as of this encounter Visit Diagnoses Not on filedocumented in this encounter Additional Health Concerns Assessment Noted Time PHQ-9 Depression Total Score: 13 025 2:00 PM EDT documented as of this encounter Care Teams Environmental Studies Program Director Relationship Specialty Start Date End Date Yonatan Graves DO [address] [place] [address] PCP - General 09/02/23 Farida Ortega, MARQUETRY WORKER [address] [place] [address] Referring Physician Gastroenterology 09/02/23 documented as of this encounter
--- OUTSIDE RECORDS SUMMARY | 2025-01-12 15:00 | XMS_ITS | Encounter Summary ---
Author Organization [facility] Address [facility] [place] [address] Care Team Providers Care Woolen Suiting Shrinker Name Role Phone Yonatan Graves DO Primary Care Provider Farida Ortega BARIATRIC PHYSICIAN Unavailable [phone] Source Comments This information has been disclosed [...] release of HIV test results or diagnoses. [id number] Health Reason for Visit * Reason Comments Medication Refill Encounter Details Date Type Department Care Team (Late st Contact Info) Description 12/23/2024 Refill [facility] Gastroenterology at [facility] [id number] [place] [address] Subhash Connolly, LEGAL EXAMINER [address] [place] [address] Social History Tobacco Use Types [...] Telephone Encounter - Nadya Jackman MA - 12/23/2024 2:38 PM EDT Last OV:08/18/2024 Next OV:02/09/2025 Last Labs:12/20/2024 Last refill: Comment: documented in this encounter Plan of Treatment Not on file documented as of this encounter Visit Diagnoses Not on filedocumented in this encounter Additional Health Concerns Assessment Noted Time PHQ-9 Depression Total Score: 13 025 2:00 PM EDT documented as of this encounter Care Teams Woolen Suiting Shrinker Relationship Specialty Start Date End Date Yonatan Graves DO [address] [place] [address] PCP - General 09/02/23 Farida Ortega, HARLEEN [address] [place] [address] Referring Physician Gastroenterology 09/02/23 documented as of this encounter
--- OUTSIDE RECORDS SUMMARY | 2025-01-12 15:00 | XMS_ITS | Encounter Summary ---
Author Organization [facility] Address [address] [place] [address] Care Team Providers Care Face Hardener Name Role Phone Yonatan Graves Primary Care Provider Farida Ortega TESTS SUPERINTENDENT Unavailable [phone] Source Comments This information has been disclosed [...] release of HIV test results or diagnoses. [id number] Encounter Details Date Type Department Care Team (Late st Contact Info) Description 12/29/2024 Telephone [facility] Liver Transplant at [address] [place] [phone] Nina Britton MA Social History Tobacco Use Types Packs/Day [...] as of this encounter Progress Notes * Nina Britton MA - 12/29/2024 9:58 AM EDT Pt called liver txp office because she recv'd a call from scheduling dept that her scans (ECHO and CT) have been cxl'd because is not in network with her ins. I called Niya BACA and per Niya has an exception with her ins comp for pt to be seen and have her testing done here. I called Paula back in scheduling who cxl'd pts testing. I explain what FC Niya had said and ask her to put those back on LETTY for pt so pt can still have these done. Paula verbalized understanding and said that she would put them back on LETTY. documented in this encounter Plan of Treatment Not on file documented as of this encounter Visit Diagnoses Not on filedocumented in this encounter Additional Health Concerns Assessment Noted Time PHQ-9 Depression Total Score: 13 11/04/ 025 2:00 PM EDT documented as of this encounter Care Teams Face Hardener Relationship Specialty Start Date End Date Yonatan Graves DO [address] [place] [address] PCP - General 09/02/23 Farida Ortega NP [address] [place] [address] Referring Physician Gastroenterology 09/02/23 documented as of this encounter
--- OUTSIDE RECORDS SUMMARY | 2025-01-12 15:00 | XMS_ITS | Encounter Summary ---
Author Organization [facility] Address [address] [place] [address] Care Team Providers Care Senior Manager Creative Services Name Role Phone Yonatan Graves DO Primary Care Provider Farida Ortega PRINCIPAL CONSULTING ENGINEER Unavailable [phone] Source Comments This information has been disclosed [...] release of HIV test results or diagnoses. [id number] Health Encounter Details Date Type Department Care Team (Late st Contact Info) Description 09/02/2023 Orders Only [facility] Lab [address] [place] [address] Alyssa Lerma Social History Tobacco Use Types [...] on filedocumented in this encounter Care Teams Senior Manager Creative Services Relationship Specialty Start Date End Date Yonatan Graves DO [address] [place] [address] PCP - General 09/02/23 Farida Ortega, PRINCIPAL CONSULTING ENGINEER [address] [place] [address] Referring Physician Gastroenterology 09/02/23 documented as of this encounter
--- OUTSIDE RECORDS SUMMARY | 2025-01-12 15:00 | XMS_ITS | Encounter Summary ---
Author Organization [facility] Address [address] [place] [address] Care Team Providers Care Heat And Vent Aircraft Mechanic Name Role Phone Yonatan Graves DO Primary Care Provider Farida Ortega DECISION SCIENCE ANALYST Unavailable Source Comments This information has been [...] release of HIV test results or diagnoses. [id number] Encounter Details Date Type Department Care Team (Late st Contact Info) Description 12/22/2024 Telephone [facility] Liver Transplant at [address] [place] [phone] Abdullahi Cano RN Social History Tobacco [...] Progress Notes * Abdullahi Cano RN - 12/22/2024 4:09 PM EDT Follow-up call to patient to review labs/plan from Friday's [facility] Visit. MELD is 15. Vitamin D level is 28. Recommended OTC Vitamin D 1,0000 units/day. Hep A- nonreactive Hep B- nonreactive Recommended starting vaccines with their PCP/retail pharmacy and encouraged the patient to bring their vaccine sheet (recommendations) provided in the new patient folder and review with their PCP. EGD- UTD Pap Smear- Dental Clearance- Patient to obtain POA- patient to complete No mobility concerns. Patient with a positive TB screening. Will schedule for ID to see. Reviewed upcoming testing. documented in this encounter Plan of Treatment Not on file documented as of this encounter Visit Diagnoses Not on filedocumented in this encounter Additional Health Concerns Assessment Noted Time PHQ-9 Depression Total Score: 13 11/04/ 025 2:00 PM EDT documented as of this encounter Care Teams Heat And Vent Aircraft Mechanic Relationship Specialty Start Date End Date Yonatan Graves DO [address] [place] [address] PCP - General 09/02/23 Farida Ortega NP [address] [place] [address] Referring Physician Gastroenterology 09/02/23 documented as of this encounter
--- OUTSIDE RECORDS SUMMARY | 2025-01-12 15:00 | XMS_ITS | Encounter Summary ---
Author Organization [facility] Address [address] [place] [address] Care Team Providers Care Pin Or Clip Fastener Name Role Phone Yonatan Graves Primary Care Provider Farida Ortega RN CHILD Unavailable [phone] Source Comments This information has been disclosed [...] release of HIV test results or diagnoses. [id number] Encounter Details Date Type Department Care Team (Late st Contact Info) Description 12/31/2024 Telephone [facility] Liver Transplant at [address] [place] [phone] Tresa Reilly MA Social History Tobacco Use Types Packs/Day [...] as of this encounter Progress Notes * Tresa Reilly MA - 12/31/2024 11:50 AM EDT Pt called to see what medications she can take, if can possibly get a steroid or something to help open up lungs. Follow-up appointment on Friday to start treatment for tb, but needing something to help with breathing before hand. Pt states asthma is worst, trouble breathing documented in this encounter Plan of Treatment Not on file documented as of this encounter Visit Diagnoses Not on filedocumented in this encounter Additional Health Concerns Assessment Noted Time PHQ-9 Depression Total Score: 13 11/04/ 025 2:00 PM EDT documented as of this encounter Care Teams Pin Or Clip Fastener Relationship Specialty Start Date End Date Yonatan Graves DO [address] [place] [address] PCP - General 09/02/23 Farida Ortega, RN CHILD [address] [place] [address] Referring Physician Gastroenterology 09/02/23 documented as of this encounter
--- OUTSIDE RECORDS SUMMARY | 2025-01-12 15:00 | XMS_ITS | Encounter Summary ---
Author Organization [facility] Address [address] [place] [address] Care Team Providers Care Brusher Hand Name Role Phone Yonatan Graves DO Primary Care Provider Farida Ortega TANKERMAN Unavailable [phone] Source Comments This information has been disclosed [...] release of HIV test results or diagnoses. [id number] Health Encounter Details Date Type Department Care Team (Late st Contact Info) Description 01/11/2025 Orders Only [facility] Liver Transplant at [address] [place] [phone] Abdullahi Cano, RN 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; Pre-transplant evaluation for chronic liver disease; Tuberculosis; Preoperative clearance; New medication added Social History Tobacco Use Types Packs/Day Years [...] Type Priority Associated Diagnoses Orde r Schedule POCT Urine Point of Care Testing Routine New medication added Ordered: 01/11/2025 documented as of this encounter Visit Diagnoses Diagnosis 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)- Primary Pre-transplant evaluation for chronic liver disease Tuberculosis Unspecified pulmonary tuberculosis, confirmation unspecified Preoperative clearance Unspecified pre-operative examination New medication added documented in this encounter Additional Health Concerns Assessment Noted Time PHQ-9 Depression Total Score: 13 025 2:00 PM EDT documented as of this encounter Care Teams Brusher Hand Relationship Specialty Start Date End Date Yonatan Graves DO [address] [place] [address] PCP - General 09/02/23 Farida Ortega, HARLEEN [address] [place] [address] Referring Physician Gastroenterology 09/02/23 documented as of this encounter
--- OUTSIDE RECORDS SUMMARY | 2025-01-12 15:00 | XMS_ITS | Encounter Summary ---
Author Organization [facility] Address [address] [place] [address] Care Team Providers Care Passenger Car Conductor Name Role Phone Yonatan Graves DO Primary Care Provider Farida Ortega NECKTIE OPERATOR POCKETS AND PIECES Unavailable [phone] Source Comments This information has been disclosed [...] release of HIV test results or diagnoses. [id number] Encounter Details Date Type Department Care Team (Late st Contact Info) Description 12/17/2024 Telephone [facility] Liver Transplant at [address] [address] Abdullahi Cano RN Social History Tobacco Use [...] Telephone Encounter - Abdullahi Cano RN - 12/17/2024 1:54 PM EDT Spoke with patient. And verified upcoming appointment. Up to date on pap smear and dental appointment. She will need a chest ct, ABD MRI (due in February), and an ECHO vs DSE (quit smoking is 2015). documented in this encounter Plan of Treatment Not on file documented as of this encounter Visit Diagnoses Diagnosis 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)- Primary Jaundice Jaundice, unspecified, not of Fatigue, unspecified type documented in this encounter Additional Health Concerns Assessment Noted Time PHQ-9 Depression Total Score: 13 025 2:00 PM EDT documented as of this encounter Care Teams Passenger Car Conductor Relationship Specialty Start Date End Date Yonatan Graves DO [address] [place] [address] PCP - General 09/02/23 Farida Ortega, NECKTIE OPERATOR POCKETS AND PIECES [address] [place] [address] Referring Physician Gastroenterology 09/02/23 documented as of this encounter
--- OUTSIDE RECORDS SUMMARY | 2025-01-12 15:00 | XMS_ITS | Encounter Summary ---
Author Organization [facility] Address [address] [place] [address] Care Team Providers Care Formation Testing Operator Name Role Phone Yonatan Graves DO Primary Care Provider Adryan Bearden Unavailable Encounter Details Date Type Department Care Team ([facility] st Contact Info) Description 10/11/2022 Orders Only External Location [address] [place] [address] Provider, External Social History Tobacco Use Types [...] on filedocumented in this encounter Care Teams Formation Testing Operator Relationship Specialty Start Date End Date Yonatan Graves DO [address] [facility] [address] [place] [address] PCP - General 09/24/22 Adryan Bearden PA [address] [place] [address] Referring Physician Gastroenterology 09/24/22 documented as of this encounter
--- OUTSIDE RECORDS SUMMARY | 2025-01-12 15:00 | XMS_ITS | Encounter Summary ---
Author Organization [facility] Address [address] [place] [address] Care Team Providers Care Knife Grinder Name Role Phone Yonatan Graves DO Primary Care Provider Adryan Bearden Unavailable Encounter Details Date Type Department Care Team (Latest Contact Info) Description 12/28/2024 Travel Social History Tobacco Use Types Packs/Day [...] plan has been documented for the patient 11/08/2024 2:05 PM EDT documented as of this encounter Care Teams Knife Grinder Relationship Specialty Start Date End Date Yonatan Graves DO [address] [facility] [address] [place] [address] PCP - General 09/24/22 Adryan Bearden PA [facility] [place] [address] Referring Physician Gastroenterology 09/24/22 documented as of this encounter
--- OUTSIDE RECORDS SUMMARY | 2025-01-12 15:00 | XMS_ITS | Encounter Summary ---
Author Organization [facility] Address [address] [place] [address] Care Team Providers Care Stage Technician Name Role Phone Yonatan Graves DO Primary Care Provider Farida Ortega TELEPHONE INSTRUMENT SUPERVISOR Unavailable [phone] Source Comments This information has been disclosed [...] release of HIV test results or diagnoses. [id number] Encounter Details Date Type Department Care Team (Late st Contact Info) Description 12/31/2024 Telephone [facility] Liver Transplant at [address] [place] [phone] Abdullahi Cano RN Social History Tobacco [...] Progress Notes * Abdullahi Cano RN - 12/31/2024 12:08 PM EDT Spoke to patient. She has complaints of upper respiratory congestion. Advised patient she can take OTC medication, just needs to stay away from NSAIDS and must stay under 2000 mg of tylenol daily. Advised patient is she continues to feel congested, she will need to reach out to her PCP. She she has worsening shortness of breath, she has been advised to go straight to the ED for further evaluation. documented in this encounter Plan of Treatment Not on file documented as of this encounter Visit Diagnoses Not on filedocumented in this encounter Additional Health Concerns Assessment Noted Time PHQ-9 Depression Total Score: 13 025 2:00 PM EDT documented as of this encounter Care Teams Stage Technician Relationship Specialty Start Date End Date Yonatan Graves DO [address] [place] [address] PCP - General 09/02/23 Farida Ortega, HARLEEN [address] [place] [address] Referring Physician Gastroenterology 09/02/23 documented as of this encounter
--- OUTSIDE RECORDS SUMMARY | 2025-01-12 15:00 | XMS_ITS | Encounter Summary ---
Author Organization [facility] Address [address] [place] [address] Care Team Providers Care Bridge Club Manager Name Role Phone Yonatan Graves Primary Care Provider Farida Ortega TITLE LAWYER Unavailable [phone] Source Comments This information has been disclosed [...] release of HIV test results or diagnoses. [id number] Health Encounter Details Date Type Department Care Team (Late st Contact Info) Description 12/22/2024 Chart Note [facility] Kidney Transplant at [address] [place] [phone] Niya Tripp Organ: Liver Social History Tobacco Use Types Packs/Day Years [...] encounter Progress Notes * Niya Tripp - 12/22/2024 3:54 PM EDT Organ: Liver Patient [place] Citizen: Yes Patient [place]: No Patient is Minor Children in the home: yes Patient is unemployed, spouse works FT Income: $4000/mnth Primary Ins: [employer] Insured:self Secondary Ins: N/A COBRA: No Eligible for short/intermediate disability: N/A Disability due to: liver disease Travel/Lodging: No No Medicare: Medicare D/T disability will begin 01/21/2025 Discussed Medication List and Coverage: yes [facility] Recipient needs cleared prior to donor being evaluated: no Evaluation for patients/donors can be done anywhere in network Obtained signature on benefits sheets and financial consent: mailed to patient documented in this encounter Plan of Treatment Not on file documented as of this encounter Visit Diagnoses Not on filedocumented in this encounter Additional Health Concerns Assessment Noted Time PHQ-9 Depression Total Score: 13 025 2:00 PM EDT documented as of this encounter Care Teams Bridge Club Manager Relationship Specialty Start Date End Date Yonatan Graves DO [address] [place] [address] PCP - General 09/02/23 Farida Ortega NP [address] [place] [phone] Referring Physician Gastroenterology 09/02/23 documented as of this encounter
--- OUTSIDE RECORDS SUMMARY | 2025-01-12 15:01 | XMS_ITS | Clinical Summary ---
[facility] Organization [facility] Address [address] [place] [address] Care Team Providers Care Childhood Teacher Name Role Phone Kierra Guajardo MD Primary [...] C 08/05/2023 Hyponatremia 08/05/2023 Chemical dependency 08/01/2023 Encounters Date Type Department Care Team Description 11/29/2024 Results Follow-Up [facility] [address] [place] [address] Pao Hanley APRN 11/25/2024 1:30 PM EDT Office Visit [facility] [address] [place] [address] Pao Hanley, GROUP MANAGER Women's annual routine gynecological examination (Primary Dx); Vaginal irritation 11/25/2024 Travel 11/22/2024 Telephone [facility] [address] [facility] [address] [place] [address] Poa Hanley, GROUP MANAGER GROUP MANAGER PAO HANLEY- CALL BACK from Last 3 Months Family History 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 Relation Name Comments Ovarian cancer Maternal Grandmother Relation Name Status Comments Maternal Grandmother Social History Tobacco Use Types Packs/Day Years Used Date Smoking Tobacco: Former Cigarettes Smokeless Tobacco: Never Tobacco Cessation:Counseling Given: Not Answered Alcohol Use Standard Drinks/Week Comments Not Currently 0 (1 standard drink = 0.6 oz pure alcohol) 4-6 wine coolers daily for several years [facility] [employer] Answer Date Recorded In the past 12 months has [employer], gas, oil, or water [employer] threatened to shut off services in your [...] medical care, and heating? Patient declined 08/05/2023 [facility] [place] of Occupat ional Health - Occupational Stress [...] GED or equivalent No 08/05/2023 Preferred Language Kuwaiti 08/05/2023 PHQ-2 Answer Date Recorded Retired PHQ-9: Brief Depression Severity Measure Score 2 08/05/2023 Comments No Sex and Gender Information Value Date Recorded Sex Assigned at Not on file Legal Sex Female 10:56 AM EDT Gender Identity Not on file Sexual Orientation Not on file Last Filed Vital Signs Vital Sign Reading Time Taken Comments Blood Pressure 90/70 11/25/2024 1:22 PM EDT Pulse 93 08/05/2023 8:02 AM EST Temperature 37 C (98.6 F) 08/05/2023 8:02 AM EST Respiratory Rate 18 08/05/2023 8:02 AM EST Oxygen Saturation 96% 08/05/2023 8:02 AM EST Inhaled Oxygen Concentration - - Weight 70.3 kg (155 lb) 11/25/2024 1:22 PM EDT Height 165.1 cm (5' 5 ) 11/25/2024 1:22 PM EDT Body Mass Index 25.79 11/25/2024 1:22 PM EDT Plan of Treatment Health Maintenance Due Date Last Done Comments Pneumococcal Vaccine 0-49 (1 of 2 - PCV) 2009 TDAP/TD VACCINES (1 - Tdap) 2009 ANNUAL PHYSICAL 11/11/2023 COVID-19 Vaccine (1 - 2023-2 5 season) 2024 Hepatitis B (3 of 3 - 19+ 3- dose series) 02/17/2025 11/02/2024, 08/20/2024 INFLUENZA VACCINE 03/23/2025 04/19/2010 Annual Gynecologic Pelvic an d Breast Exam 11/26/2025 11/25/2024 PAP SMEAR 11/26/2027 11/25/2024, 11/11/2023 HEPATITIS C SCREENING Completed 09/08/2023 , 09/01/2023, 09/01/2023, Additional history exists Procedures Procedure Name Priority Date/Time Associated Diagnosis Comments VAGINITIS PLUS (VG+) WITH LUCILLE (SIX SPECIES), NUSWAB Routine 11/25/2024 3:00 PM EDT Vaginal irritation LIQUID-BASED PAP SMEAR WITH HPV GENOTYPING IF ASCUS, [facility]) Routine 11/25/2024 2:03 PM EDT Women's annual routine gynecological examination HEPATITIS PANEL, ACUTE Routine 08/02/2023 4:57 AM EST from Last 3 Months or Most Recently Relevant to Health Maintenance Results * NuSwab VG+, Lucille 6sp (11/25/2024 [...] Unknown 11/25/2024 3:00 PM EDT 11/25/2024 Narrative [facility] ([facility]) - 11/29/2024 6:08 AM EDT Test(s) 862980- Atopobium vaginae; 496769- BVAB 2; 200027- Megasphaera 1 was developed and its performance characteristics determined by [facility]. It has not been cleared or approved by the Food and Drug Administration. Test(s) 122744-Jquuxsl albicans, ABIMBOLA; 616597-Ydvznar glabrata, ABIMBOLA; 960757-Z parapsilosis/tropicalis; 302487-Fekeyld lusitaniae, ABIMBOLA; 321362-Jonayjh krusei, ABIMBOLA was developed and its performance characteristics determined by [facility]. It has not been cleared or approved by the Food and Drug Administration. Performed at: 01 - [facility] [place] [id number] Clinical Academic Allergist: Aurora Yoo MD, Phone: [phone] Patient Fasting: N Pao Hanley GROUP MANAGER PATHOLOGY/CYTOLOGY ORDERA BLES Final Result [facility] ([facility]) [address] [place] [address], [facility] [address] [place] [address], * LIQUID-BASED PAP SMEAR WITH HPV GENOTYPING IF ASCUS ([facility]) (11/25/2024 2:03 PM EDT) Reference Lab Report [facility] [address] [place] [address] or [phone] Cristóbal Calvo M.D., Senior Asp Net Developer PATIENT NAME [facility]AT[facility]. [address] [id number] AGE SEX SSN CLIENT REF # [facility] 34 1990 F [id number] [facility] LOU DEJESUS REQUESTING Leslie [place] [address] PAO HANLEY DATE COLLECTED DATE RECEIVED DATE REPORTED 11/25/2024 11/25/2024 11/26/2024 ThinPrep Pap with wiserigic [facility] DIAGNOSIS: Negative for intraepithelial lesion or malignancy Multiple factors can influence accuracy of Pap tests; therefore, screening at regular intervals is necessary for early cancer detection. COMMENT: Benign cellular changes associated with inflammation are present. SPECIMEN ADEQUACY: SATISFACTORY FOR EVALUATION Transformation zone is absent or insufficient. SOURCE OF SPECIMEN: CERVICAL SLIDES: 1 CLINICAL HISTORY: Women's annual routine gynecological examination HELP DESK ENGINEER: CARRIE MORENO (ASCP) CPT CODES: [id number] 11/26/2024 9:52 AM EDT [facility] ThinPrep Vial Cervix uteri structure / Unknown Collection / Unknown 11/25/2024 2:03 PM EDT 11/25/2024 2:03 PM EDT Pao Hanley GROUP MANAGER PATHOLOGY/CYTOLOGY ORDERA BLES Final Result Performing Organization Address City/[facility]/ZIP Co de Phone Number [facility]
[address] [place] [address], [place] [phone] * (ABNORMAL) Hepatitis Panel, Acute (08/02/2023 4:57 AM EST) Hepatitis B Surface Ag Non-Reacti ve Non-Reacti ve 08/02/2023 6:38 AM EST [facility] Hep A IgM Non-Reacti ve Non-Reacti ve 08/02/2023 6:38 AM EST [facility] Hep B C IgM Non-Reacti ve Non-Reacti ve 08/02/2023 6:38 AM EST [facility] Hepatitis C Ab Reactive(A ) Non-Reacti ve 08/02/2023 6:38 AM EST [facility] Blood Venipuncture / Unknown 08/02/2023 4:57 AM EST 08/02/2023 5:15 AM EST Narrative [facility] - 08/02/2023 6:38 AM EST Results may be falsely decreased if patient taking Biotin. Jasmin Crooks MD LAB BLOOD ORDERABLES Final Result Performing Organization Address [facility] Co de Phone Number [facility]
[address] [place] [address], [place] [phone] from Last 3 Months or Most Recently Relevant to Health Maintenance Insurance [employer] Advance Directives * CPR (Attempt to Resuscitate) (Latest Code Status on File) Date Activated Date Inactivated Comments 08/01/2023 11:18 PM 08/05/2023 4:05 PM Question Answer Comments Code Status (Patient has no pulse and is not breathing): CPR (Attempt to Resuscitate) Medical Interventions (Patie nt has pulse or is breathing): Full Support Care Teams Childhood Teacher Relationship Specialty Start Date End Date Kierra Guajardo MD [address] [place] [address] PCP - General Internal Medicine 10/23/23
--- OUTSIDE RECORDS SUMMARY | 2025-01-12 15:01 | XMS_ITS | Clinical Summary ---
Author Organization [facility] Address [address] [place] [id number] Care Team Providers Care Desktop Publisher Name Role Phone Yonatan Graves DO Primary Care Provider Farida Ortega ELECTRONIC SCALE TESTER Unavailable [phone] Source Comments This information has been disclosed [...] therelease of HIV test results or diagnoses. [id number] Allergies Active Allergy Reactions Criticality Noted Date Comments Amoxicillin Rash Low 09/01/2023 Morphine Rash Low 12/08/2017 Penicillins Rash Low 06/06/2015 Medications gabapentin (NEURONTIN) 800 MG tablet Take 1 tablet (800 mg total) by mouth 3 times a day. Active ondansetron (ZOFRAN) 4 MG tabletIndications: 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) Take 1 tablet (4 mg total) by mouth every 8 hours as needed for Nausea. 40 tablet 2 08/18/19 25 Active ondansetron (ZOFRAN-ODT) 8 MG disintegrating tablet Take 1 tablet (8 mg total) by mouth every 8 hours as needed for Nausea. 20 tablet 08/25/19 25 Active furosemide (LASIX) 20 MG tablet TAKE 3 TABLETS(60 MG) BY MOUTH TWICE DAILY 540 tablet 1 11/17/19 25 Active spironolactone (ALDACTONE) 50 MG tablet TAKE 3 TABLETS BY MOUTH TWICE DAILY 540 tablet 1 12/24/19 Active isoniazid (NYDRAZID) 300 MG tabletIndications: Latent tuberculosis Take 3 tablets (900 mg total) by mouth once a week for 12 doses. 12 tablet 2 01/12/20 25 Active rifapentine (PRIFTIN) 150 mg TabIndications:Lat ent tuberculosis Take 6 tablets (900 mg total) by mouth once a week for 12 doses. 24 tablet 2 01/12/20 25 Active pyridoxine, vitamin B6, (B-6) 50 MG tabletIndications: Latent tuberculosis Take 1 tablet (50 mg total) by mouth once a week for 12 doses. 4 tablet 2 01/12/20 25 Active spironolactone (ALDACTONE) 50 MG tablet Take 3 tablets (150 mg total) by mouth 2 times a day. 150 mg AM and 100 mg PM Discontinued Active Problems Problem Noted Date Diagnosed Date Immunosuppression 12/21/2024 Ascites 12/17/2024 Jaundice 12/17/2024 Fatigue 12/17/2024 Pre-transplant evaluation for chronic liver dise ase 12/14/2024 High risk surgery, pre-operative cardiovascular examination 12/14/2024 Cardiovascular risk factor 12/14/2024 Alcoholic cirrhosis of liver with ascites 2024 Encounters Date Type Department Care Team Description 01/11/2025 Telephone [facility] Liver Transplant at [address] [phone] Abdullahi Cano RN 01/11/2025 Orders Only [facility] Liver Transplant at [address] [place] [address] Abdullahi Cano, RN 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; Pre-transplant evaluation for chronic liver disease; Tuberculosis; Preoperative clearance; New medication added 01/11/2025 Results Follow-Up [facility] Liver Transplant at [address] [place] [address] Abdullahi Cano, RN X-ray Chest PA and Lateral 01/11/2025 Orders Only [facility] [address] [place] [address] Frank Beltran MD Latent tuberculosis (Primary Dx) 01/10/2025 2:25 PM EDT - 01/10/2025 11:59 PM EDT Hospital Encounter [facility] Radiology [address] [place] [phone] Frank Beltran MD Positive QuantiFERON-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 Discharge Disposition: Home or Self Care WITHOUT Home Care Services 01/10/2025 1:30 PM EDT Office Visit [facility] Liver Transplant at [address] [place] [phone] Phani Richmond MD Huaman Joo, Moises Arturo, MD 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); Encounter for pre-transplant evaluation for liver transplant 12/31/2024 Telephone [facility] Liver Transplant at [address] [place] [phone] Abdullahi Cano, KONSTANTIN 12/31/2024 Telephone [facility] Liver Transplant at [address] [place] [place] [phone] Tresa Reilly MA 12/29/2024 Telephone [facility] Liver Transplant at [address] [place] [phone] 82 Nina Britton MA 12/23/2024 Refill [facility] Gastroenterology at [facility] [address] [facility] [place] [place] [phone] Subhash Connolly CNP 12/22/2024 Telephone [facility] Liver Transplant at [address] [place] [address] [place] [phone] Abdullahi Cano, KONSTANTIN 12/22/2024 Chart Note [facility] Kidney Transplant at [facility] [address] [place] [place] [address] Niya Tripp Organ: Liver 12/20/2024 4:10 PM EDT [facility] [address] [place] [phone] Mario Ramirez MD 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); Pre-transplant evaluation for chronic liver disease; 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); Pre-transplant evaluation for liver transplant 12/20/2024 3:00 PM EDT Office Visit [facility] Liver Transplant at [address] [place] [address] [place] [address] Mario Ramirez MD 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) (Primary Dx); Pre-transplant evaluation for chronic liver disease; 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); Cardiovascular risk factor; Pre-transplant evaluation for liver transplant 12/20/2024 1:30 PM EDT Office Visit [facility] Liver Transplant at [address] [place] [place] [address] Quan Yates III, MD 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) (Primary Dx); 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); Immunosuppression (CMS-HCC) 12/20/2024 Nutrition [facility] Kidney Transplant at [address] [place] [address] [place] [address] 12/20/2024 Orders Only [facility] Liver Transplant at [address] [place] [address] [place] [address] Abdullahi Cano, KONSTANTIN Pre-transplant evaluation for chronic liver disease (Primary Dx); 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); Cardiovascular risk factor 12/17/2024 Telephone [facility] Liver Transplant at [address] [place] [address] [place] [phone] Abdullahi Cano, KONSTANTIN 11/17/2024 Telephone [facility] Liver Transplant at [address] [place] [phone] Brent Lamar RN 11/16/2024 Telephone [facility] Psychiatry Transplant at [address] [place] [phone] Annmarie Rangel PsyD 11/14/2024 Refill [facility] Gastroenterology at [facility] [address] [facility] [address] [place] [address] Subhash Connolly, SANTOSH 11/04/2024 3:00 PM EDT [facility] [address] [place] [phone] Mario Ramirez MD 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); Pre-transplant evaluation for chronic liver disease 11/04/2024 1:00 PM EDT Office Visit [facility] Psychiatry Transplant at [address] [phone] Annmarie Rangel PsyD Generalized anxiety disorder (Primary Dx); Alcohol use disorder, severe, in sustained remission (CMS-HCC) 11/04/2024 Orders Only [facility] Liver Transplant at [address] [phone] Abdullahi Cano, KONSTANTIN 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; Pre-transplant evaluation for chronic liver disease 11/04/2024 Orders Only [facility] Liver Transplant at [address] [place] [phone] Abdullahi Cano, RN 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; Pre-transplant evaluation for chronic liver disease from Last 3 Months Immunizations Immunization Administration Dates Next Due Hepatitis B, adult 08/20/2024 09/17/2024 Family History 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 Relation Comments Cirrhosis [...] Pulse 62 01/10/2025 1:23 PM EDT Temperature 36.8 C (98.2 F) 12/20/2024 1:42 PM EDT Respiratory Rate 16 01/10/2025 1:23 PM EDT Oxygen Saturation 100% 01/10/2025 1:23 PM EDT Inhaled Oxygen Concentration 100% 01/10/2025 1 :23 PM EDT Weight 68.9 kg (152 lb) 01/10/2025 1:23 PM EDT Height 165.1 cm (5' 5 ) 01/10/2025 1:23 PM EDT Body Mass Index 25.29 01/10/2025 1:23 PM EDT Plan of Treatment Health Maintenance Due Date Last Done Comments Immunization: COVID-19 (#1) 1995 Immunization: DTaP/Tdap/Td (1 - Tdap) 2009 Immunization: Hepatitis A (1 of 2 - Risk 2-dose series) 2009 Immunization: Pneumococcal (1 of 2 - PCV) 2009 Immunization: Zoster (1 of 2) 2009 Cervical Cancer Screening/Pa p Smear (MyChart) 01/26/2020 Immunization: Hepatitis B (3 of 3 - 19+ 3-dose series) 02/17/2025 11/02/2024, 08/20/2024 Immunization: Influenza (MyChart) (#1) 2025 Depression Screening 12/20/2025 12/20/2024, 11/05/19 HIV Screening Completed 12/20/2024 Hepatitis C Screening (MyChart) Completed , 09/01/2023 Procedures Procedure Name Priority Date/Time Associated Diagnosis Comments XR CHEST PA AND LATERAL Routine 01/11/20 25 2:57 PM EDT Positive QuantiFERON-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 ANTIBODY SCREEN Routine 12/20/2024 4:30 PM EDT [...] ascites (CMS-HCC) Pre-transplant evaluation for liver transplant TOXOPLASMA GONDII ANTIBODY, IGG Routine 12/20/2024 4:30 PM EDT 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) Pre-transplant evaluation for chronic liver disease 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) Pre-transplant evaluation for liver transplant QUANTIFERON TB2 AG Routine 12/20/2024 4: 30 [...] 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) NICOTINE(COTININE), QUAL, URINE Routine 12/20/2024 4:30 PM [...] Pre-transplant evaluation for liver transplant HEPATITIS C ANTIBODY Routine 12/20/2024 4:30 PM [...] (CMS-HCC) Pre-transplant evaluation for liver transplant HEPATITIS A ANTIBODY TOTAL Routine 12/20 4:30 PM EDT 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) Pre-transplant evaluation for chronic liver disease 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) HEMOGLOBIN A1C Routine 12/20/2024 4:30 PM EDT [...] ascites (CMS-HCC) Pre-transplant evaluation for liver transplant CMV IGG ANTIBODY Routine 12/20/2024 4:30 PM [...] 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) [id number] (AAT) QUANTITATION & MUTATION Routine 12/20/2024 4:30 PM EDT 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) Pre-transplant evaluation for chronic liver disease 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) Pre-transplant evaluation for liver transplant PHOSPHATIDYLETHANOL CONFIRMATION, B Routine 12/20/2024 4:30 PM EDT 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) Pre-transplant evaluation for chronic liver disease 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) URINE DRUG COMPREHENSIVE PANEL, CONFIRMATION Routine 12/20/2024 4:30 PM EDT 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) Pre-transplant evaluation for chronic liver disease 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) AFP TUMOR MARKER Routine 12/20/2024 4:30 PM EDT 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) Pre-transplant evaluation for chronic liver disease 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) Pre-transplant evaluation for liver transplant PROTIME-INR Routine 12/20/2024 4:30 PM EDT 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) Pre-transplant evaluation for chronic liver disease 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) Pre-transplant evaluation for liver transplant HEPATIC FUNCTION PANEL Routine 4:30 PM EDT Ascites due to alcoholic [...] of liver with ascites (CMS-HCC) CBC Routine 12/20/2024 4:30 PM EDT 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) Pre-transplant evaluation for chronic liver disease 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) ECG 12-LEAD (MUSE) Routine 12/20/2024 2: 00 PM EDT Pre-transplant evaluation for chronic liver disease 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) Cardiovascular risk factor PHOSPHATIDYLETHANOL CONFIRMATION, B Routine 11/04/2024 3:21 PM EDT 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) Pre-transplant evaluation for chronic liver disease URINE DRUG SCREEN REFLEX TO CONFIRMATION Routine 11/04/2024 3:21 PM EDT 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) Pre-transplant evaluation for chronic liver disease from Last 3 Months Results * X-ray Chest PA and Lateral [...] Rodriguez MD at 01/10/2025 4:32 PM EDT Frank Kowalski MD IMG DIAGNOSTIC IMAGI NG ORDERABLES Final Result * Hepatitis A Antibody Total (12/20/2024 4:30 PM EDT) Anti-HAV Total (IgG + IgM) Nonreactive 12/20/2024 5:57 PM EDT [facility] Serum 12/20/2024 4:30 PM EDT 12/20/2024 4:58 PM EDT Narrative [facility] - 12/20/2024 5:57 PM EDT HAV antibodies not detected Mario Ramirez MD LAB BLOOD ORDERABLES Final Re sult [facility] [address] * (ABNORMAL) MMR(IgG) Panel (Measles, Mumps, Rubella) (12/20/2024 4:30 PM EDT) Mumps IgG Positive 12/20/2024 5:52 PM EDT [facility] MUMPS IGG NUM 141.00(H) 0.0 - 8.9 U/mL 12/20/2024 5:52 PM EDT [facility] Rubella IgG Scr Positive 12/20/2024 5:52 PM EDT [facility] RUB NUM 4.94(H) 0.0 - 0.8 INDEX 12/20/2024 5:52 PM EDT [facility] Rubeola Ab, IgG Positive 12/20/2024 5:52 PM EDT [facility] RUB IGG NUM >300.00(H) 0.00 - 13.40 U/mL 12/20/2024 5:52 PM EDT [facility] Serum 12/20/2024 4:30 PM EDT 12/20/2024 4:58 PM EDT Narrative [facility] - 12/20/2024 5:52 PM EDT [...] ORDERABLES Final Re sult Performing Organization Address [facility]/ZIP Co de Phone Number [facility] [address] * Syphilis Screening (Trepia) (12/20/2024 4:30 PM EDT) Treponema Pallidum Negative Negative 12/20/2024 5:56 PM EDT [facility] Comment: No serological evidence of infection with Treponema pallidum (incubating or early primary syphilis cannot be excluded). Serum 12/20/2024 4:3 0 PM EDT 12/20/2024 4:58 PM EDT Mario Ramirez MD LAB BLOOD ORDERABLES Final Re sult Performing Organization Address [facility] Co de Phone Number [facility] [address] * Phosphatidylethanol Confirmation, B (12/20/2024 4:30 PM EDT) Only the most recent of2 resultswithin the time period is included. PETH 16:0/18.1 (POPETH) <10 Cutoff: 10 ng/mL 12/23/2024 12:28 PM EDT [facility] Comment: Phosphatidylethanol (PEth) homologues result [...] ng/mL 12/23/2024 12:28 PM EDT [facility] Comment: PEth 16:0/18:2 (PLPEth) Reference ranges are not well established PEth Interpretation Negative. 12/23 12:28 PM EDT [facility] Comment: ADDITIONAL INFORMATION This report is intended for use in clinical monitoring and management of patients. It is not intended for use in employment-related testing. This test was developed and its performance characteristics determined by [facility] in a manner consistent with CLIA requirements. This test has not been cleared or approved by the U.S. Food and Drug Administration. Test Performed by: [address] [address] [employer] Bath Designer: Alexia David Ph.D.; CLIA# [id number] Whole Blood 12/20/2024 4:30 PM EDT 12/23/2024 12:28 PM EDT Mario Ramirez MD LAB BLOOD ORDERABLES Final Re sult Performing Organization Address [facility]/ZIP Co de Phone Number [facility] [address] [facility] * QuantiFERON TB2 Ag (12/20/2024 4:30 PM EDT) [facility] QuantiFERON TB2 Ag Value 0.25 12/22/2024 10:22 AM EDT [facility] Plasma 12/20/2024 4:30 PM EDT 12/20/2024 5:03 PM EDT Mario Ramirez MD LAB BLOOD ORDERABLES Final Re sult Performing Organization Address [facility] Co de Phone Number [facility] [address] [facility] * QuantiFERON TB1 Ag (12/20/2024 4:30 PM EDT) [facility] QuantiFERON TB1 Ag Value 0.46 12/22/2024 10:22 AM EDT [facility] Plasma 12/20/2024 4:30 PM EDT 12/20/2024 5:03 PM EDT Mario Ramirez MD LAB BLOOD ORDERABLES Final Re sult Performing Organization Address [facility]/ZIP Co de Phone Number [facility] [address] [facility] * QuantiFERON Nil (12/20/2024 4:30 PM EDT) [facility] QuantiFERON Nil 0.06 10:22 AM EDT [facility] Plasma 12/20/2024 4:30 PM EDT 12/20/2024 5:03 PM EDT Mario Ramirez MD LAB BLOOD ORDERABLES Final Re sult Performing Organization Address [facility] de Phone Number [facility] [address] [facility] * (ABNORMAL) QuantiFERON Mitogen (12/20/2024 4:30 PM EDT) [facility] QuantiFERON Interpretation Positive( A) Negative 12/22/2024 10:22 AM EDT [facility] Comment:Positive results are supportive of [...] QuantiFERON Mitogen 10.00 12/22/2024 10:22 AM EDT [facility] Plasma 12/20/2024 4:30 PM EDT 12/20/2024 5:03 PM EDT Narrative [facility] - 12/22/2024 10:22 AM EDT The [...] especially in immunosuppressed states. Please see www.cdc.gov/tb. Mario Ramirez MD LAB BLOOD ORDERABLES Final Re sult Performing Organization Address [facility] Co de Phone Number [facility] [address] [facility] * (ABNORMAL) CMV IgG Antibody (12/20/2024 4:30 PM EDT) CMV IgG Positive(A ) Negative 12/20/2024 5:51 PM EDT [facility] CMV IGG NUM >10.00(H) 0.00 - 0.59 U/mL 12/20/2024 5:51 PM EDT [facility] Serum 12/20/2024 4:30 PM EDT 12/20/2024 4:58 PM EDT Mario Ramirez MD LAB BLOOD ORDERABLES Final Re sult Performing Organization Address [facility] Co de Phone Number [facility] [address] [facility] * Urine Drug Screen, Comprehensive Panel Scrn/Confirmation (12/20/2024 4:30 PM EDT) BARBITURATES NOT PRESENT 12/22/2024 12:37 PM EDT [facility] BENZODIAZEPINES NOT PRESENT 12/23/19 12:37 PM EDT [facility] CANNABINOIDS NOT PRESENT 12/22/2024 12:37 PM EDT [facility] BRUSHING OPERATOR STIMULANTS NOT PRESENT 12:37 PM EDT [facility] OPIOID ANALGESICS NOT PRESENT 2024 12:37 PM EDT [facility] OPIOID ANTAGONISTS NOT PRESENT 12/22 12:37 PM EDT [facility] SEDATIVES/MUSCLE RELAXANTS NOT PRESENT 12/22/2024 12:37 PM EDT [facility] TRICYCLIC ANTIDEPRESSANTS NOT PRESENT 12/22/2024 12:37 PM EDT [facility] Creatinine, Ur 88.90 mg/dL 12/21/2024 11:24 AM EDT [facility] Comment:Reference range not established for this test. pH 7.6 4.7 - 7.8 12/21/2024 11:24 AM EDT [facility] Specific [place] 1.006 1.003 - 1.035 12/21/2024 11:24 AM EDT [facility] Urine 12/20/2024 4:30 PM EDT 12/20/2024 5:03 PM EDT Narrative [facility] - 12/22/2024 12:37 PM EDT This test has been developed and its performance characteristics determined by [facility] which is certified under the [...] MD URINE ORDERABLES Final Result [facility] [address] [place] [address], [facility] * Alpha 1 Antitrypsin AAT Quant & Mutation (12/20/2024 4:30 PM EDT) A-1 Antitrypsin 155 100 - 188 mg/dL 12/21/2024 3:45 AM EDT [facility] A-1 Antitrypsin Pheno MM 12/22/2024 7:08 PM EDT [facility] Comment: MM Phenotype is considered to be normal , producing normal serum levels of tfhpy-6-obptiash inhibitor and not associated with clinical disease. [...] 12/22/2024 8:23 PM EDT Narrative [facility] - 12/22/2024 8:23 PM EDT PERFORMED AT: [address] [id number] LABORATORY ANALYST: Parrish Anguiano, PhD PHONE: [phone] PERFORMED AT: [employer] [id number] LABORATORY ANALYST: Chasity Barnard MD PHONE: [phone] Result [facility] Mario Ramirez MD LAB BLOOD ORDERABLES Final Re sult [facility] [address] * Strongyloides Ab (12/20/2024 4:30 PM EDT) Strongyloides Ab Negative Negative 12/22/19 11:40 AM EDT [facility] Serum 12/20/2024 4:30 PM EDT 12/21/2024 3:07 PM EDT Narrative [facility] - 12/21/2024 3:07 PM EDT PERFORMED AT: [address] [id number] LABORATORY ANALYST: Chasity Barnard MD PHONE: [phone] Mario Ramirez MD LAB BLOOD ORDERABLES Final Re sult Performing Organization Address [facility] de Phone Number [facility] [address] [facility]. [address] * (ABNORMAL) Hepatic Function Panel (12/20/2024 4:30 PM EDT) Total Bilirubin 3.4(H) 0.0 - 1.5 mg/dL 12/20/2024 5:32 PM EDT [facility] Bilirubin, Direct 0.78(H) 0.00 - 0.40 mg/dL 12/20/2024 5:32 PM EDT [facility] AST 35 13 - 39 U/L 12/20/2024 5:32 PM EDT [facility] ALT 20 7 - 52 U/L 12/20/2024 5:32 PM EDT [facility] Alkaline Phosphatase 117 36 - 125 U/L 12/20/2024 5:32 PM EDT [facility] Total Protein 7.0 6.4 - 8.9 g/dL 12/20/2024 5:32 PM EDT [facility] Albumin 3.8 3.5 - 5.7 g/dL 12/20/2024 5:32 PM EDT [facility] Bilirubin, Indirect 2.62(H) 0.00 - 1.10 mg/dL 12/20/2024 5:32 PM EDT [facility] Plasma 12/20/2024 4:30 PM EDT 12/20/2024 4:58 PM EDT Mario Ramirez MD LAB BLOOD ORDERABLES Final Re sult Performing Organization Address [facility] Co de Phone Number [facility] [address] [facility]. [address] * (ABNORMAL) Renal Function Panel w/EGFR (12/20/2024 4:30 PM EDT) Sodium 138 133 - 146 mmol/L 12/20/2024 5:32 PM EDT [facility] Potassium 3.4(L) 3.5 - 5.3 mmol/L 12/20/2024 5:32 PM EDT [facility] Chloride 105 98 - 110 mmol/L 12/20/2024 5:32 PM EDT [facility] CO2 24 21 - 33 mmol/L 12/20/2024 5:32 PM EDT [facility] Anion Gap 9 3 - 16 mmol/L 12/20/2024 5:32 PM EDT [facility] BUN 9 7 - 25 mg/dL 12/20/2024 5:32 PM EDT [facility] Creatinine 0.75 0.60 - 1.30 mg/dL 12/20/2024 5:32 PM EDT [facility] Glucose 73 70 - 100 mg/dL 12/20/2024 5:32 PM EDT [facility] Calcium 9.1 8.6 - 10.3 mg/dL 12/20/2024 5:32 PM EDT [facility] Phosphorus 2.4 2.1 - 4.7 mg/dL 12/20/2024 5:32 PM EDT [facility] Albumin 3.8 3.5 - 5.7 g/dL 12/20/2024 5:32 PM EDT [facility] Osmolality, Calculated 283 278 - 305 mOsm/kg 12/20/2024 5:32 PM EDT [facility] EGFR >90 12/20/2024 5:32 PM EDT [facility] Comment: As of 2021, the [...] ORDERABLES Final Re sult Performing Organization Address [facility] Co de Phone Number [facility] [address] [facility]. [address] * (ABNORMAL) Iron Studies (Iron + TIBC) (12/20/2024 4:30 PM EDT) Iron 312(H) 50 - 212 ug/dL 12/20/2024 5:42 PM EDT [facility] % Iron Saturation 56.5(H) 15.0 - 55.0 % 12/20/2024 5:42 PM EDT [facility] TIBC 552(H) 265 - 497 ug/dL 12/20/2024 5:42 PM EDT [facility] Serum 12/20/2024 4:30 PM EDT 12/20/2024 4:58 PM EDT Mario Ramirez MD LAB BLOOD ORDERABLES Final Re sult Performing Organization Address [facility] de Phone Number [facility] [address] [facility]. [address] * Hepatitis B Core Antibody (12/20/2024 4:30 PM EDT) Hep B Core Total Ab Nonreactive Nonreactive 12/20/2024 5:52 PM EDT [facility] Comment:Health Department no tified in accordance with reportable infectious disease guidelines. Serum 12/20/2024 4:30 PM EDT 12/20/2024 4:58 PM EDT Narrative [facility] - 12/20/2024 5:52 PM EDT A nonreactive final interpretation indicates that anti-HBc antibodies were not detected in the sample; it is possible that the individual is not infected with HBV. Mario Ramirez MD LAB BLOOD ORDERABLES Final Re sult Performing Organization Address City/[facility] Co de Phone Number [facility] [address] [facility]. [address] * Ethanol, Serum (12/20/2024 4:30 PM EDT) Pathologist [facility] Ethanol <10 0 - 10 mg/dL 12/20/2024 5:41 PM EDT [facility] Serum 12/20/2024 4:30 PM EDT 12/20/2024 5:03 PM EDT Mario Ramirez MD LAB BLOOD ORDERABLES Final Re sult Performing Organization Address [facility] Co de Phone Number [facility] [address] [facility]. [address] * (ABNORMAL) F-Actin Smooth Muscle Ab (12/20/2024 4:30 PM EDT) Pathologist [facility] F-Actin Smooth Muscle IgG 48(H) 0 - 19 Units 12/21/2024 2:23 PM EDT [facility] Comment: Negative 0 - 19 Weak positive 20 - 30 Moderate to strong positive >30 Actin Antibodies are found in 52-85% of patients with autoimmune hepatitis or chronic active hepatitis and in 22% of patients with primary biliary cirrhosis. Serum 12/20/2024 4:30 PM EDT 12/21/2024 3:07 PM EDT Narrative [facility] - 12/21/2024 3:07 PM EDT PERFORMED AT: [facility] [id number] LABORATORY ANALYST: Parrish Anguiano, PhD PHONE: [phone] Mario Ramirez MD LAB BLOOD ORDERABLES Final Re sult Performing Organization Address City/[facility] Co de Phone Number [facility] * BLUE (IFA) with Titer (12/20/2024 4:30 PM EDT) Pathologist [facility] BLUE Titer by IFA Negative 12/22/19 25 1:59 PM EDT [facility] Comment: Negative <1:80 Borderline 1:80 Positive >1:80 ICAP nomenclature: AC-0 For more information about Hep-2 cell patterns use ANApatterns.org, the official website for the International Consensus on Antinuclear Antibody (BLUE) Patterns (ICAP). Serum 12/20/2024 4:30 PM EDT 12/21/2024 3:07 PM EDT Narrative [facility] - 12/21/2024 3:07 PM EDT PERFORMED AT: [facility] [id number] LABORATORY ANALYST: Parrish Anguiano, PhD PHONE: [phone] Mario Ramirez MD LAB BLOOD ORDERABLES Final Re sult Performing Organization Address [facility] de Phone Number [facility] [address] [place] [address] * (ABNORMAL) Hepatitis C antibody (12/20/2024 4:30 PM EDT) Pathologist [facility] HCV Ab Reactive( A) Nonreactive 12/20/2024 6:01 PM EDT [facility] Comment: Health Department notified in accordance with reportable infectious disease guidelines. Health Department notified in accordance with reportable infectious disease guidelines. Serum 12/20/2024 4:30 PM EDT 12/20/2024 4:58 PM EDT Narrative [facility] - 12/20/2024 6:01 PM EDT Presumptive evidence of antibodies to HCV: follow CDC recommendations for supplemental testing. Mario Ramirez MD LAB BLOOD ORDERABLES Final Re sult Performing Organization Address [facility] de Phone Number [facility] [address] * (ABNORMAL) Vanessa-Lopez virus VCA IgG Antibody (12/20/2024 4:30 PM EDT) Pathologist [facility] EBV VCA IgG Positive( A) Negative 12/20/2024 5:53 PM EDT [facility] Comment:Presence of detectab le VCA IgG antibodies. A positive result indicates current or past exposure to Vanessa-Lopez virus. EBV IGG NUM >750.00(H ) 0.00 - 17.99 U/mL 12/20/2024 5:53 PM EDT [facility] Serum 12/20/2024 4:30 PM EDT 12/20/2024 4:58 PM EDT Mario Ramirez MD LAB BLOOD ORDERABLES Final Re sult Performing Organization Address [facility] de Phone Number [facility] [address] [facility]. [address] * Nicotine(Cotinine), Qual, Urine (12/20/2024 4:30 PM EDT) Cotinine, UR Negative Negative 12/21/2024 8:21 AM EDT [facility] Urine 12/20/2024 4:30 PM EDT 12/20/2024 5:03 PM EDT Mario Ramirez MD URINE ORDERABLES Final Result Performing Organization Address [facility] de Phone Number [facility] [address] [facility]. [address] * Ceruloplasmin (12/20/2024 4:30 PM EDT) Ceruloplasmin 20.5 18.0 - 58.0 mg/dL 12/20/2024 6:47 PM EDT [facility] Comment: Effective 03/25/2016: The units for ceruloplasmin have changed from mg/L to mg/dL. The new reference range is 18-58 mg/dL. Historical values can be converted from mg/L to mg/dL by dividing by a factor of 10. Serum 12/20/2024 4:30 PM EDT 12/20/2024 4:58 PM EDT Mario Ramirez MD LAB BLOOD ORDERABLES Final Re sult Performing Organization Address [facility] de Phone Number [facility] [address] [facility]. [address] * AFP tumor marker (12/20/2024 4:30 PM EDT) [facility] AFP-Tumor Marker 5.2 0.0 - 9.0 ng/mL 12/20/2024 5:42 PM EDT [facility] Serum 12/20/2024 4:30 PM EDT 12/20/2024 4:58 PM EDT Narrative [facility] - 12/20/2024 5:42 PM EDT The testing method for AFP is a chemiluminescent immunoassay manufactured by [employer] Concentrations of AFP obtained by different assay methods or kits may vary and cannot be used interchangeably. AFP results cannot be interpreted as absolute evidence of the presence or absence of malignant disease. Mario Ramirez MD LAB BLOOD ORDERABLES Final Re sult Performing Organization Address [facility]/ZIP Co de Phone Number [facility] [address] [place] [address]. [address] * ABO/Rh (12/20/2024 4:30 PM EDT) [facility] ABO Grouping O 12/20/2024 5:19 PM EDT [facility] Rh Type Positive 12/20/2024 5:19 PM EDT [facility] Blood 12/20/2024 4:30 PM EDT 12/20/2024 4:56 PM EDT Mario Ramirez MD BLOOD BANK TEST ORDERABLES Fi nal Result Performing Organization Address [facility]/ZIP Co de Phone Number [facility] [address] [facility]. [address] * Hepatitis C RNA, Quant (12/20/2024 4:30 PM EDT) [facility] [employer] Units Not Detected IU/mL 12/21/2024 11:29 AM EDT [facility] Comment:Test methodology for HCV RNA quantification is an FDA-approved nucleic acid amplification assay. The Lower Limit of Quantitation (LLOQ) is 15 IU/mL. The linear range of the assay is 15-100,000,000 IU/mL. The Limit of Detection (LoD) is 12.0 IU/mL for EDTA plasma. The reference range is Not Detected. IU log10 See Note log 10 IU/mL 12/21/2024 11:29 AM EDT [facility] Comment:HCV RNA not detected . Plasma 12/20/2024 4:30 PM EDT 12/20/2024 6:30 PM EDT Mario Ramirez MD LAB BLOOD ORDERABLES Final Re sult Performing Organization Address [facility] Co de Phone Number [facility] [address] [facility]. [address] * (ABNORMAL) Vitamin D 25 hydroxy (12/20/2024 4:30 PM EDT) Vit D, 25-Hydroxy 28.0(L) 30.0 - 100.0 ng/mL 12/20/2024 5:50 PM EDT [facility] Comment: Vitamin D deficiency has been defined by the [place] of Medicine (IOM) and an Endocrine Society [...] ORDERABLES Final Re sult Performing Organization Address [facility] Co de Phone Number [facility] [address] [facility]. [address] * Antimitochondrial antibody (12/20/2024 4:30 PM EDT) Anti-Mitochon Ab IFA <20.0 0.0 - 20.0 Units 12/21/2024 2:23 PM EDT [facility] Comment: Negative 0.0 - 20.0 Equivocal 20.1 - 24.9 Positive >24.9 Mitochondrial (M2) Antibodies are found in 90-96% of patients with primary biliary cirrhosis. Serum 12/20/2024 4:30 PM EDT 12/21/2024 3:07 PM EDT Narrative [facility] - 12/21/2024 3:07 PM EDT PERFORMED AT: [facility] [address] [id number] LABORATORY ANALYST: Parrish Anguiano, PhD PHONE: [phone] us Mario Ramirez MD LAB BLOOD ORDERABLES Final Re sult [facility] [address] * (ABNORMAL) Differential (12/20/2024 4:30 PM EDT) Pathologist [facility] Neutrophils Relative 37.0(L) 40.0 - 80.0 % 12/20/2024 5:08 PM EDT [facility] Lymphocytes Relative 33.7 15.0 - 45.0 % 12/20/2024 5:08 PM EDT [facility] Monocytes Relative 14.3(H) 0.0 - 12.0 % 12/20/2024 5:08 PM EDT [facility] Eosinophils Relative 13.8(H) 0.0 - 8.0 % 12/20/2024 5:08 PM EDT [facility] Basophils Relative 1.2(H) 0.0 - 1.0 % 12/20/2024 5:08 PM EDT [facility] nRBC 0 0 - 0 /100 WBC 12/20/2024 5:08 PM EDT [facility] Neutrophils Absolute 1,628 1,520 - 8,640 /uL 12/20/2024 5:08 PM EDT [facility] Lymphocytes Absolute 1,483 570 - 4,860 /uL 12/20/2024 5:08 PM EDT [facility] Monocytes Absolute 629 0 - 1,296 /uL 12/20/2024 5:08 PM EDT [facility] Eosinophils Absolute 607 0 - 864 /uL 12/20/2024 5:08 PM EDT [facility] Basophils Absolute 53 0 - 108 /uL 12/20/2024 5:08 PM EDT [facility] Whole Blood 12/20/2024 4:30 PM EDT 12/20/2024 4:58 PM EDT Mario Ramirez MD LAB BLOOD ORDERABLES Final Re sult Performing Organization Address [facility] Co de Phone Number [facility] [address] [facility] * Toxoplasma gondii antibody, IgG (12/20/2024 4:30 PM EDT) Pathologist [facility] Toxoplasma Gondii IgG <3.0 0.0 - 7.1 IU/mL 12/21/2024 2:25 AM EDT [facility] Comment: Negative <7.2 Equivocal 7.2 - 8.7 Positive >8.7 Serum 12/20/2024 4:30 PM EDT 12/21/2024 4:23 AM EDT Narrative [facility] - 12/21/2024 4:23 AM EDT PERFORMED AT: [facility] [address] [id number] LABORATORY ANALYST: Parrish Anguiano, PhD PHONE: [phone] Mario Ramirez MD LAB BLOOD ORDERABLES Final Re sult Performing Organization Address City/[facility] Co de Phone Number [facility] [address] [facility] * HIV-1 and HIV-2 Antibodies w/Reflex (12/20/2024 4:30 PM EDT) Pathologist [facility] HIV 1+2 AB/AGN Nonreactive Nonreactive 12/20/2024 5:53 PM EDT [facility] Serum 12/20/2024 4:30 PM EDT 12/20/2024 4:58 PM EDT Narrative [facility] - 12/20/2024 5:53 PM EDT \HIVRNR Mario Ramirez MD LAB BLOOD ORDERABLES Final Re sult Performing Organization Address City/[facility]/ZIP Co de Phone Number [facility] [address] * Hepatitis B surface antibody (12/20/2024 4:30 PM EDT) Hep B S Ab Nonreactive Nonreactive 12/20/2024 6:05 PM EDT [facility] HBSAB NUMBER 5.92 0.00 - 7.99 mIU/mL 12/20/2024 6:05 PM EDT [facility] Serum 12/20/2024 4:30 PM EDT 12/20/2024 4:58 PM EDT [facility] - 12/20/2024 6:05 PM EDT Individual is considered not immune to HBV infection. Mario Ramirez MD LAB BLOOD ORDERABLES Final Re sult Performing Organization Address [facility] Co de Phone Number [facility] [address] [facility]. [address] * Hepatitis B surface antigen (12/20/2024 4:30 PM EDT) Hep B Surface Ag Nonreactive Nonreactive 12/20/2024 5:57 PM EDT [facility] Comment:Health Department no tified in accordance with reportable infectious disease guidelines. Serum 12/20/2024 4:30 PM EDT 12/20/2024 4:58 PM EDT [facility] - 12/20/2024 5:57 PM EDT Specimen is considered negative for HBsAg. Mario Ramirez MD LAB BLOOD ORDERABLES Final Re sult Performing Organization Address [facility]/ZIP Co de Phone Number [facility] [address] [facility]. [address] * (ABNORMAL) Protime-INR (12/20/2024 4:30 PM EDT) Pathologist [facility] Protime 16.7(H) 12.1 - 15.1 seconds 12/20/2024 5:42 PM EDT [facility] INR 1.3(H) 0.9 - 1.1 12/20/2024 5:42 PM EDT [facility] Comment: RECOMMENDED THERAPEUTIC RANGES USING INR : Stable oral anticoagulant therapy: 2.0 - 3.0 Mechanical prosthetic heart valve: 2.5 - 3.5 Recurrent acute myocardial infarction: 2.5 - 3.5 Plasma 12/20/2024 4:30 PM EDT 12/20/2024 4:57 PM EDT Mario Ramirez MD LAB BLOOD ORDERABLES Final Re sult [facility] [address] [place] [address], [facility] * (ABNORMAL) CBC (12/20/2024 4:30 PM EDT) [facility] WBC 4.4 3.8 - 10.8 10E3/uL 12/20/2024 5:08 PM EDT [facility] RBC 3.66(L) 3.80 - 5.10 10E6/uL 12/20/2024 5:08 PM EDT [facility] Hemoglobin 12.3 11.7 - 15.5 g/dL 12/20/2024 5:08 PM EDT [facility] Hematocrit 35.2 35.0 - 45.0 % 12/20/2024 5:08 PM EDT [facility] MCV 96.0 80.0 - 100.0 fL 12/20/2024 5:08 PM EDT [facility] MCH 33.7(H) 27.0 - 33.0 pg 12/20/2024 5:08 PM EDT [facility] MCHC 35.1 32.0 - 36.0 g/dL 12/20/2024 5:08 PM EDT [facility] RDW 14.3 11.0 - 15.0 % 12/20/2024 5:08 PM EDT [facility] Platelets 111(L) 140 - 400 10E3/uL 12/20/2024 5:08 PM EDT [facility] MPV 8.8 7.5 - 11.5 fL 12/20/2024 5:08 PM EDT [facility] Whole Blood 12/20/2024 4:30 PM EDT 12/20/2024 4:58 PM EDT Mario Ramirez MD LAB BLOOD ORDERABLES Final Re sult Performing Organization Address City/[facility]/ZIP Co de Phone Number [facility] [address] [facility]. [address] * Antibody screen (12/20/2024 4:30 PM EDT) Antibody Screen Negative 12/20/2024 5:34 PM EDT [facility] Blood 12/20/2024 4:30 PM EDT 12/20/2024 4:56 PM EDT Narrative [facility] - 12/20/2024 5:38 PM EDT Testing performed by [facility] Mario Ramirez MD BLOOD BANK TEST ORDERABLES Fi nal Result Performing Organization Address [facility] Co de Phone Number [facility] [address] [place] [address]. [address] * (ABNORMAL) Varicella zoster antibody, IgG (12/20/2024 4:30 PM EDT) Varicella IgG Positive( A) Negative S/CO 12/20/2024 5:51 PM EDT [facility] Comment:Result indicates the presence of [...] S/CO 12/20/2024 5:51 PM EDT [facility] Serum 12/20/2024 4:30 PM EDT 12/20/2024 4:58 PM EDT us Mario Ramirez MD LAB BLOOD ORDERABLES Final Re sult Performing Organization Address City/[facility]/ZIP Co de Phone Number [facility] [address] [facility]. [address] * TSH (Thyroid Stimulating Hormone) (12/20/2024 4:30 PM EDT) TSH 1.26 0.45 - 4.12 uIU/mL 12/20/2024 5:54 PM EDT [facility] Serum 12/20/2024 4:30 PM EDT 12/20/2024 4:58 PM EDT Mario Ramirez MD LAB BLOOD ORDERABLES Final Re sult Performing Organization Address [facility] Co de Phone Number [facility] [address] * Hemoglobin A1c (12/20/2024 4:30 PM EDT) Hemoglobin A1C 4.4 4.0 - 5.6 % 12/21/2024 12:33 AM EDT [facility] Comment: Hemoglobin A1c Interpretation Guidelines: [...] PM EDT 12/20/2024 4:58 PM EDT Result [facility] Mario Ramirez MD LAB BLOOD ORDERABLES Final Re sult Performing Organization Address [facility] Co de Phone Number [facility] [address] * IgA (12/20/2024 4:30 PM EDT) IgA 365.0 70.0 - 400.0 mg/dL 12/21/2024 8:18 AM EDT [facility] Comment:Please interpret the se findings in conjunction with clinical findings, protein electrophoresis, and immunotyping/immunofixation results. Serum 12/20/2024 4:30 PM EDT 12/20/2024 4:58 PM EDT Mario Ramirez MD LAB BLOOD ORDERABLES Final Re sult Performing Organization Address [facility] Co de Phone Number [facility] [address] * Ferritin (12/20/2024 4:30 PM EDT) Pathologist [facility] Ferritin 17.5 11.0 - 306.8 ng/mL 12/20/2024 5:55 PM EDT [facility] Serum 12/20/2024 4:30 PM EDT 12/20/2024 4:58 PM EDT Mario Ramirez MD LAB BLOOD ORDERABLES Final Re sult Performing Organization Address [facility] de Phone Number [facility] [address] * (ABNORMAL) Lipid Profile (12/20/2024 4:30 PM EDT) Non-HDL Cholesterol, Calculated 109 0 - 129 mg/dL 12/20/2024 5:32 PM EDT [facility] Comment: Desirable: < 130 mg/dL Above Desirable: 130-159 mg/dL Borderline High: 160-189 mg/dL High: 190-219 mg/dL Very High: > 219 mg/dL Cholesterol, Total 152 0 - 200 mg/dL 12/20/2024 5:32 PM EDT [facility] Triglycerides 54 10 - 149 mg/dL 12/20/2024 5:32 PM EDT [facility] HDL 43(L) 60 - 92 mg/dL 12/20/2024 5:32 PM EDT [facility] Comment: LIPID PROFILE INTERPRETATION CHOLESTEROL,TOTAL(mg/dL) [...] LDL Cholesterol 98 mg/dL 5:32 PM EDT [facility] Plasma 12/20/2024 4:30 PM EDT 12/20/2024 4:58 PM EDT Narrative [facility] - 12/20/2024 5:32 PM EDT Must the patient be fasting for this test?->No LDL cholesterol calculated using the Friedewald equation. Mario Ramirez MD LAB BLOOD ORDERABLES Final Re sult Performing Organization Address City/[facility] Co de Phone Number [facility] [address] * ECG 12-Lead (MUSE) (12/20/2024 2:00 PM EDT) 12/20/2024 2:00 PM EDT Narrative MUSE - 12/21/2024 10:39 AM EDT Ventricular Rate: 63 BPM Atrial Rate: 63 BPM P-R Interval: 118 ms QRS Duration: 84 ms QT: 480 ms QTc: 491 ms P [place]: 23 degrees R [place]: 46 degrees T [place]: 52 degrees Diagnosis Line: NORMAL SINUS RHYTHM ^ PROLONGED QT ^ ABNORMAL ECG ^ ^ Confirmed by Anthony RAMOS MD ([id number]) on 12/21/2024 10:39:48 AM Mario Ramirez MD ECG ORDERABLES Final Result [facility]USE * Urine Drug Screen Reflex to Confirmation (11/04/2024 3:21 PM EDT) Amphetamine, 500 ng/mL Cutoff Negative Negative 11/04/2024 5:04 PM EDT [facility] Barbiturates UR, 300 ng/mL Cutoff Negative Negative 11/04/2024 5:04 PM EDT [facility] Buprenorphine, 5 ng/mL Cutoff Negative Negative 11/04/2024 5:04 PM EDT [facility] Benzodiazepines UR, 300 ng/mL Cutoff Negative Negative 11/04/2024 5:04 PM EDT [facility] Cocaine UR, 300 ng/mL Cutoff Negative Negative 11/04/2024 5:04 PM EDT [facility] Methadone, UR, 300 ng/mL Cutoff Negative Negative 11/04/2024 5:04 PM EDT [facility] Opiates UR, 300 ng/mL Cutoff Negative Negative 11/04/2024 5:04 PM EDT [facility] Oxycodone, 100 ng/mL Cutoff Negative Negative 11/04/2024 5:04 PM EDT [facility] Tricyclic Antidepressants, 300 ng/mL Cutoff Negative Negative 11/04/2024 5:04 PM EDT [facility] Comment:This test has been d eveloped and its performance characteristics determined by [facility] which is certified under the Clinical Laboratory Improvement Amendment of 1988 (CLIA-88) to perform high complexity testing. The test has not been cleared or approved by the US Food and Drug Administration (FDA). The FDA has determined that such clearance is not necessary. The test should be used for clinical purposes and is not regarded as investigational. THC UR, 50 ng/mL Cutoff Negative Negative 11/04/2024 5:04 PM EDT [facility] Comment:This is a screening method only and may be associated with false positive and/or false negative results. Results are not definitive without additional confirmatory testing by mass spectrometry. Fentanyl, 2 ng/mL Cutoff Negative Negative 11/04/2024 5:04 PM EDT [facility] Comment:This test has been d eveloped and its performance characteristics determined by [facility] which is certified under the Clinical Laboratory Improvement Amendment of 1988 (CLIA-88) to perform high complexity testing. The test has not been cleared or approved by the [place] Food and Drug Administration (FDA). The FDA has determined that such clearance is not necessary. The test should be used for clinical purposes and is not regarded as investigational. Urine 11/04/2024 3:21 PM EDT 11/04/2024 4:04 PM EDT us Mario Ramirez MD URINE ORDERABLES Final Result [facility] [address] [id number], [facility] from Last 3 Months Insurance EXCHANGE EXCHANGE Jordon FRANKELSIVA [id number] Care Teams Desktop Publisher Relationship Specialty Start Date End Date Yonatan Graves DO [address] [place] [address] PCP - General 09/02/23 Farida Ortega, [employer] [address] [id number] [place] [id number] Referring Physician Gastroenterology 09/02/23
--- OUTSIDE RECORDS SUMMARY | 2025-01-12 15:01 | XMS_ITS ---
Author Organization [facility] Address [address] [place] [address] Care Team Providers Care Electrical Engineering Drafting Officer Name Role Phone IrineoYonatan kramer Joseph LLANES Primary Care Provider Farida Ortega PRODUCTION EXPEDITER Unavailable [phone] Transplant Episode Liver Candidate [facility] ([place], [place]) - [facility] Evaluation began on 12/20/2024 Marked as Active on 12/20/2024 Liver CoordinatorAbdullahi Cano RN Phone: N/A Fax: N/A Email: N/A Scores Score Value Updated Expires Exceptions/Lorena sons CPRA Not available UNOS MELD Not available MELD (Calc) 15 12/20/2024 [place] Organ Diagnosis Organ Primary 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 Care Team Name Role Phone Fax Email Abdullahi Cano RN Liver Coordinator N/A N/A N/A Mario Ramirez MD Referring Physician [phone] N/A Mery Stroud RN Txp Pre Coordinator N/A N/A N/A ASIM Selby, BARK PRESS OPERATOR Txp Building Architectural Designer N/A N/A N/A Events Pre-Transplant Referred: 08/31/2024 Evaluation began: 12/20/2024 Appointments (12/13/2024 - 02/12/2025) When With Visit Type Description 12/20/2024 Txp Terrie Boyle New Patient 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) (Primary Dx); Pre-transplant evaluation for chronic liver disease; 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); Cardiovascular risk factor; Pre-transplant evaluation for liver transplant 12/20/2024 Txp Adam Mesa New Patient 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) (Primary Dx); 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); Immunosuppression (CMS-HCC) 01/10/2025 Txp Terrie Torres New Patient Posi tive QuantiFERON-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 (Primary Dx); Encounter for pre-transplant evaluation for liver transplant
[2025-01-12 16:58] LABS: Urine Pregnancy, HCG Qual. Negative (Negative)
== END 2025-01-12 23:59 | disposition home or self-care (01) ==
LOC: LAB 14:57
PROVIDERS: PCP Internal Medicine; Visit Provider Internal Medicine Infectious Disease
DX: Z79.899 Other long term (current) drug therapy (principal)
CPT/HCPCS: 81025

== ENCOUNTER 2025-03-09 19:12 | Emergency (ER) | payer OTHER, SELFPAY ==
--- OUTSIDE RECORDS SUMMARY | 2025-01-10 13:30 | XMS_ITS | Encounter Summary ---
Author Organization [facility] Address [address] [place] [address] Care Team Providers Care Registered Dietetic Technician Name Role Phone Farida Ortega PRISM MEASURER Unavailable [phone] Source Comments This information has been disclosed [...] release of HIV test results or diagnoses. [id number] Reason for Visit * Reason Comments New Patient Visit/ Consultation Encounter Details Date Type Department Care Team (Late st Contact Info) Description 01/10/2025 1:30 PM EDT Office Visit [facility] Liver Transplant at [facility] [address] [facility] [address] [place] [id number] Phani Richmond MD [address] [place] [address] Frank Beltran MD [address] [address] Positive QuantiFERON-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 (Primary [...] Disease Pre-Transplant Consultation Patient: Mindy Wade CSN: [id number] Dear Dr. Jono Yates III, Thank you [...] 3 kids (14, 13, 9 y/o) in [place], [place]. The patient has lived in [place] all her life. No sick contacts. Stayed in retirement overnight x 1 several years ago. No history of homelessness. Prior trip to [facility].International travel: she spent 1 weekin [...] Resource Strain: Patient Declined (08/05/2023) Received from [facility] Overall Financial Resource Strain (CARDIA) Difficulty of [...] file Physical Activity: Inactive (08/05/2023) Received from [facility] Exercise Vital Sign Days of Exercise per Week: 0 days Minutes of Exercise per Session: 0 min Stress: Stress Concern Present (08/05/2023) Received from [facility] [place] [employer]ational [employer] - Occupational Stress Questionnaire Feeling of Stress : Rather much Social Connections: Not At Risk (08/05/2023) Received from [facility] Family and Community Support If for any [...] (A) 12/20/2024 Lab Results Component Value Date [id number] Nonreactive 12/20/2024 Lab Results Component Value Date [...] of liver with sequela of portal hypertension. 3 CXR Impression IMPRESSION: No acute cardiopulmonary abnormality. [...] as of this encounter Results * (ABNORMAL) Coccidioides Antibody Reflexive Panel (02/07/2025 2:19 PM EDT) Coccidioides IgM 1.2(H) <=0.9 IV 02/12/20 3:08 PM EDT [facility] Comment: INTERPRETIVE INFORMATION: Coccidioides Antibody, IgM: 0.9 IV or less: Negative - No significant level of Coccidioides IgM antibody detected. 1.0 - 1.4 IV: Equivocal - Questionable presence of Coccidioides IgM antibody detected. Repeat testing in 10-14 days may be helpful. 1.5 IV or greater: Positive - Presence of IgM antibody to Coccidioides detected, suggestive of current or recent infection. In most symptomatic patients, IgM antibody usually appears by the second week of infection and disappears by the fourth month. Both tube precipitin (TP) and CF antigens are represented in the [facility] tests. Coccidioides IgG 0.7 <=0.9 IV 02/12/20 3:08 PM EDT [facility] Comment: INTERPRETIVE INFORMATION: Coccidioides Antibody, Ig.9 IV or less: Negative - No significant level of Coccidioides IgG antibody detected. 1.0 - 1.4 IV: Equivocal - Questionable presence of Coccidioides IgG antibody detected. Repeat testing in 10-14 days may be helpful. 1.5 IV or greater: Positive - Presence of IgG antibody to Coccidioides detected, suggestive of current or past infection. IgG antibody usually appears by the third week of infection and may persist for years. Both tube precipitin (TP) and CF antigens are represented in the [facility] tests. Effective March 236991 Coccidioides Ab, IgG by [facility] will be made non-orderable. [facility] offers order code [id number] Coccidioides Abs, IgG/IgM, EIA. For further information, please contact your local [facility] [facility]. Coccidioide Titer, Complement Fixation <1:2 <1:2 02/14/2025 1:43 AM EDT [facility] Comment: INTERPRETIVE INFORMATION: Coccidioide Titer A titer of 1:2 or greater suggests past or current infection. However, greater than 30 percent of cases with chronic residual pulmonary disease have negative complement fixation (CF) tests. Titers of less than 1:32 (even as low as 1:2) may indicate past infection or self-limited disease; anticoccidioidal CF antibody titers in excess of 1:16 may indicate disseminated infection. CF serology may be used to follow therapy. Antibody in CSF is considered diagnostic for coccidioidal meningitis, although 10 percent of patients with coccidioidal meningitis will not have antibody in CSF. No previous value was reported. A value of <1:2 was entered by IF on 02/14/2025 02:06 Coccidioides Immitis Abs, Precipitin Not Detected Not Detected 02/15/2025 1:43 AM EDT [facility] Comment: Clinical Interpretation: No Coccidioides antibodies (ie, IDTP (IgM), IDCF (IgG)) were detected. This result does not exclude Coccidioides infection. No previous value was reported. A value of Not Detected was entered by IF on 02/15/2025 02:06 Serum 02/07/2025 2:19 PM EDT 02/11/2025 4:07 PM EDT Narrative [facility] - 02/15/2025 2:06 AM EDT PERFORMED AT: [facility] [address] [place] [id number] SENIOR RISK ANALYST: MARIE Gaspar PHONE: [phone] us Frank Kin Kowalski MD LAB BLOOD ORDERABLES Final Result [facility] [address] [place] [address], [facility] * X-ray Chest PA and Lateral (01/10/2025 [...] Rodriguez MD at 01/10/2025 4:32 PM EDT [facility] Kin Kowalski MD IMG DIAGNOSTIC IMAGI NG ORDERABLES Final Result documented in this encounter Visit Diagnoses Diagnosis Positive QuantiFERON-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- Primary Encounter for pre-transplant evaluation for liver transplant Positive QuantiFERON-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 documented in this encounter Additional Health Concerns Assessment Noted Time PHQ-9 Depression Total Score: 13 11/04/ 025 2:00 PM EDT documented as of this encounter Care Teams Registered Dietetic Technician Relationship Specialty Start Date End Date Farida Ortega, PRISM MEASURER [address] [place] [address] Referring Physician Gastroenterology 09/02/23 documented as of this encounter
--- OUTSIDE RECORDS SUMMARY | 2025-01-10 14:25 | XMS_ITS | Encounter Summary ---
Author Organization [facility] Address [address] [place] [address] Care Team Providers Care Divorce Lawyer Name Role Phone Farida Ortega VACUUM EXTRACTOR OPERATOR Unavailable [phone] Source Comments This information has been disclosed [...] release of HIV test results or diagnoses. [id number] Health Encounter Details Date Type Department Care Team (Latest Contact Info) Description 01/10/2025 2:25 PM EDT - 01/10/2025 11:59 PM EDT Hospital Encounter [facility] Radiology [address] [place] [phone] Frank Beltran MD [address] [facility] [place] [phone] Positive QuantiFERON-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 Discharge Disposition: Home [...] by mouth 3 times a day. ondansetron (ZOFRAN-ODT) 8 MG disintegrating tablet Take 1 tablet (8 mg total) by mouth every 8 hours as needed for Nausea. 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 40 tablet 2 08/18/2024 5 documented as of this encounter Plan of [...] Rodriguez MD at 01/10/2025 4:32 PM EDT [facility] Kin Kowalski MD IMG DIAGNOSTIC IMAGI NG ORDERABLES Final Result documented in this encounter Visit Diagnoses Diagnosis Positive QuantiFERON-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 documented in this encounter Additional Health Concerns Assessment Noted Time PHQ-9 Depression Total Score: 13 11/04/ 025 2:00 PM EDT documented as of this encounter Care Teams Divorce Lawyer Relationship Specialty Start Date End Date Farida Ortega, VACUUM EXTRACTOR OPERATOR [address] [place] [address] (work) Referring Physician Gastroenterology 09/02/23 documented as of this encounter
--- OUTSIDE RECORDS SUMMARY | 2025-01-13 13:00 | XMS_ITS | Encounter Summary ---
Author Organization [facility] Address [address] [place] [address] Care Team Providers Care Mophead Sewer Name Role Phone Farida Ortega BUSINESS CONTINUITY SPECIALIST Unavailable [phone] Source Comments This information has been disclosed [...] release of HIV test results or diagnoses. [id number] Health Encounter Details Date Type Department Care Team (Late st Contact Info) Description 01/13/2025 1:00 PM EDT Office Visit [facility] Psychiatry Transplant at [facility] [address] [facility] [address] [place] [address] Annmarie Rangel PsyD [address] [facility] [place] [address] [place] [address] Generalized anxiety disorder (Primary Dx); Alcohol use disorder, severe, in sustained remission ([facility]-HCC) Social History Tobacco Use Types Packs/Day [...] of this encounter Progress Notes * Annmarie Rangel, [place] - 01/13/2025 1:00 PM EDT Transplant Psychology Outpatient Visit Mindy Wade is a 34 y.o. 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 Seen for presurgical evaluation by this database report writer on 11/04/2024. PMH includes CHATO/AUD. Follows with [facility] for CD and psychiatric treatment. Seen today for f/up. Subjective: Patient arrived to the virtual appointment on-time and was in a private space at her home address. Discussed updates. Continues to follow with therapist at [facility], which is helpful for moodsupport. No cravings or thoughts of drinking. During transplant testing, unexpected result (positive for tuberculosis), which will require 3 months of treatment prior to transplant. Processed reaction to news, particularly as patient's grandmother was also in the hospital during recent timeframe. She noted disappointment and intention to reframe expectations and goals for the fall. Affirmed emphasis on controlling what she can. Most interfering symptom continues to be fatigue. Broached social work update - no change in support plan, though some concern for recent bill. She reached out to for guidance, and this database report writer will follow. Given delay in transplant and ongoing engagement at [facility], f/up not indicated at this time. Agreed to meet likely post listing and/or post transplant, depending on course. Encouraged patient to reach out with any txp psych needs. Objective/Mental Status Examination: - Orientation: Person, place, time, and situation - Appearance: appropriately dressed, looked stated age - Motor: WNL - Eye contact: WNL - Speech: Normal tone, volume, rate, articulation and intensity - Speech content: without delusions, paranoia, suicidal or homicidal ideations, intent or plan - Thought Process: Organized with linear process - Mood: tired , euthymic - Affect: Congruent - Attitude: Cooperative, friendly - Judgment/Insight: Good Assessment: Dx: CHATO AUD in sustained remission OUD in sustained remission Plan: Continue to follow with [facility] providers Will schedule follow-up with this database report writer closer to listing, pending course Patient to follow-up with medical providers. Visit: 1:00 to 1:19 pm ANNMARIE RANGEL PsyD Clinical Psychologist documented in this encounter Plan of Treatment Not on file documented as of this encounter Visit Diagnoses Diagnosis Generalized anxiety disorder- Primary Alcohol use disorder, severe, in sustained remission (CMS-HCC) documented in this encounter Additional Health Concerns Assessment Noted Time PHQ-9 Depression Total Score: 13 025 2:00 PM EDT documented as of this encounter Care Teams Mophead Sewer Relationship Specialty Start Date End Date Farida Ortega, BUSINESS CONTINUITY SPECIALIST [address] [address] Referring Physician Gastroenterology 09/02/23 documented as of this encounter
--- OUTSIDE RECORDS SUMMARY | 2025-02-01 13:00 | XMS_ITS | Encounter Summary ---
Author Organization [facility] Address [facility] [place] [address] Care Team Providers Care Traveling Clerk Name Role Phone Yonatan Graves DO Primary Care Provider Farida Ortega MOLD YARD CRANE OPERATOR Unavailable [phone] Source Comments This information has been disclosed [...] release of HIV test results or diagnoses. [id number] Reason for Referral * Imaging/Cardiovascular Scan (Routine) - Closed Specialty Diagnoses / Procedures Referred By Contac t Referred To Contact Radiology Diagnoses 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) Procedures CT Chest WO contrast Mario Ramirez MD [address] [place] [address] Phone: tel: fax: Referral ID Status Reason Start Date Expiration Date Visits Re quested Visits Authorized [id number] Closed 12/20/2024 06/18/2025 1 0 Reason for Visit * Auth/Cert (Routine) Specialty Diagnoses / Procedures Referred By Contac t Referred To Contact Radiology [facility] [address] [place] [address] Phone: tel: Referral ID Status Reason Start Date Expiration Date Visits Re quested Visits Authorized [id number] 1 1 Encounter Details Date Type Department Care Team (Latest Contact Info) Description 02/01/2025 1:00 PM EDT - 02/01/2025 1:41 PM EDT Hospital Encounter [facility] [address] [place] [id number] Mario Ramirez MD [address] [place] [address] 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) Discharge Disposition: Home or Self Care [...] this encounter Medications at Time of Discharge carvediloL (COREG) 3.125 MG tablet Take 1 tablet (3.125 mg total) by mouth 2 times a day with meals. 180 tablet 1 01/28/2025 furosemide (LASIX) 20 MG tablet TAKE 3 TABLETS(60 MG) BY MOUTH TWICE DAILY 540 tablet 1 11/16/2024 gabapentin (NEURONTIN) 800 MG tablet Take 1 tablet (800 mg total) by mouth 3 times a day. isoniazid (NYDRAZID) 300 MG tabletIndications:La tent tuberculosis Take 3 tablets (900 mg total) by mouth once a week for 12 doses. 12 tablet 2 01/11/2025 5 ondansetron (ZOFRAN) 4 MG tabletIndications:Al coholic cirrhosis of liver with ascites (CMS-HCC) Take 1 tablet (4 mg total) by mouth every 8 hours as needed for Nausea. 40 tablet 2 01/18/2025 ondansetron (ZOFRAN-ODT) 8 MG disintegrating tablet Take 1 tablet (8 mg total) by mouth every 8 hours as needed for Nausea. 20 tablet 08/24/2024 pyridoxine, vitamin B6, (B-6) 50 MG tabletIndications:La tent tuberculosis Take 1 tablet (50 mg total) by mouth once a week for 12 doses. 4 tablet 2 01/11/2025 5 rifapentine (PRIFTIN) 150 mg TabIndications:Laten t tuberculosis Take 6 tablets (900 mg total) by mouth once a week for 12 doses. 24 tablet 2 01/13/2025 5 spironolactone (ALDACTONE) 50 MG tablet TAKE 3 TABLETS BY MOUTH TWICE DAILY 540 tablet 1 12/23/2024 documented as of this encounter Plan of Treatment Not on file documented as of this encounter Procedures Procedure Name Priority Date/Time Associated Diagnosis Comments CT CHEST WO CONTRAST Routine 02/01/2025 1:41 PM EDT 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) documented in this encounter Results * CT Chest WO contrast (02/01/2025 1:41 PM EDT) Anatomical Region Laterality Modality Chest Computed Tomogra phy 02/01/2025 1:25 PM EDT Impressions 02/07/2025 1:51 PM EDT IMPRESSION: No findings to preclude liver transplantation. Report Verified by: Apolinar Mack MD at 02/07/2025 1:51 PM EDT Narrative 02/07/2025 1:51 PM EDT EXAM: CT CHEST WO CONTRAST INDICATION: LT evaluation; 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) COMPARISON: None. TECHNIQUE: Multidetector CT imaging was obtained through the chest in the supine position without intravenous contrast. Additional axial MIP images were reconstructed. FINDINGS: MEDICAL DEVICES: None. AIRWAYS & LUNGS: The central airways are patent. Mild upper zone predominant emphysema and ill-defined upper zone predominant centrilobular groundglass opacities, likely smoking-related respiratory bronchiolitis. NODULES: No suspicious pulmonary nodules. PLEURA: No pleural effusions or pneumothorax. LOWER NECK: Unremarkable. HEART: The heart is normal in size. Minimal coronary artery calcifications. VASCULAR STRUCTURES: Aorta and main pulmonary artery are normal in caliber. MEDIASTINUM AND LAKEISHA: No pathologically enlarged lymph nodes. Mild distal esophageal wall thickening. CHEST WALL AND AXILLA: Unremarkable. UPPER ABDOMEN: Cirrhotic morphology of the liver with sequela of portal hypertension. OSSEOUS STRUCTURES: No suspicious osteolytic or osteoblastic lesions. Procedure Note Apolinar Mack MD - 02/07/2025 EXAM: CT CHEST WO CONTRAST INDICATION: LT evaluation; Alcoholic cirrhosis of liver with ascites(CMS-HCC) COMPARISON: None. TECHNIQUE: Multidetector CT imaging was obtained through the chest in thesupine position without intravenous contrast. Additional axial MIP imageswere reconstructed. FINDINGS: MEDICAL DEVICES: None. AIRWAYS & LUNGS: The central airways are patent. Mild upper zonepredominant emphysema and ill-defined upper zone predominant centrilobulargroundglass opacities, likely smoking-related respiratory bronchiolitis. NODULES: No suspicious pulmonary nodules. PLEURA: No pleural effusions or pneumothorax. LOWER NECK: Unremarkable. HEART: The heart is normal in size. Minimal coronary arterycalcifications. VASCULAR STRUCTURES: Aorta and main pulmonary artery are normal incaliber. MEDIASTINUM AND LAKEISHA: No pathologically enlarged lymph nodes. Mild distalesophageal wall thickening. CHEST WALL AND AXILLA: Unremarkable. UPPER ABDOMEN: Cirrhotic morphology of the liver with sequela of portalhypertension. OSSEOUS STRUCTURES: No suspicious osteolytic or osteoblastic lesions. IMPRESSION: No findings to preclude liver transplantation. Report Verified by: Apolinar Mack MD at 02/07/2025 1:51 PM EDT Mario Ramirez MD IMG CT ORDERABLES Final Resul t documented in this encounter Visit Diagnoses Diagnosis 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) documented in this encounter Additional Health Concerns Assessment Noted Time PHQ-9 Depression Total Score: 13 025 2:00 PM EDT documented as of this encounter Care Teams Traveling Clerk Relationship Specialty Start Date End Date Yonatan Graves DO [address] [place] [address] PCP - General 02/01/25 Farida Ortega, HARLEEN [address] [place] [address] Referring Physician Gastroenterology 09/02/23 documented as of this encounter
--- OUTSIDE RECORDS SUMMARY | 2025-02-01 13:42 | XMS_ITS | Encounter Summary ---
Author Organization [facility] Address [address] [place] [address] Care Team Providers Care Textile Screen Maker Name Role Phone Yonatan Graves DO Primary Care Provider Farida Ortega SPONSORSHIP COORDINATOR Unavailable [phone] Source Comments This information has been disclosed [...] release of HIV test results or diagnoses. [id number] Reason for Referral * Imaging/Cardiovascular Scan (Routine) - Closed Specialty Diagnoses / Procedures Referred By Roselyn mccollum Referred To Contact Cardiology Diagnoses 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) Pre-transplant evaluation for chronic liver disease 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) Cardiovascular risk factor Pre-transplant evaluation for liver transplant Procedures Transthoracic Echo (TTE) Complete with Mario Russell MD [address] [place] [address] Phone: tel: fax: Referral ID Status Reason Start Date Expiration Date Visits Re quested Visits Authorized [id number] Closed 12/20/2024 06/18/2025 1 0 Reason for Visit * Auth/Cert (Routine) Specialty Diagnoses / Procedures Referred By Roselyn mccollum Referred To Contact Radiology [facility] [address] [place] [address] Phone: tel: Referral ID Status Reason Start Date Expiration Date Visits Re quested Visits Authorized [id number] 1 1 Encounter Details Date Type Department Care Team (Latest Contact Info) Description 02/01/2025 1:42 PM EDT - 02/01/2025 11:59 PM EDT Hospital Encounter [facility] Echocardiography Laboratory [address] [place] [phone] Mario Ramirez MD [address] [place] [phone] 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); Pre-transplant evaluation for chronic liver disease; 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); Cardiovascular risk factor; Pre-transplant evaluation for liver transplant Discharge Disposition: Home or Self Care WITHOUT [...] Sign Reading Time Taken Comments Blood Pressure 103/62 02/01/2025 2:30 PM EDT Pulse 72 02/01/2025 2:30 PM EDT Temperature - - Respiratory Rate 16 02/01/2025 2:30 PM EDT Oxygen Saturation 100% 02/01/2025 2:30 PM EDT Inhaled Oxygen Concentration 100% 02/01/2025 2 :30 PM EDT Weight - - Height - - Body Mass Index - - documented in this encounter Medications at Time [...] 1 12/23/2024 documented as of this encounter Nursing Notes * Janae Driver - 02/01/2025 2:47 PM EDT Pt to echo for TTE with bubble study. Pt ID'd via armband, name/. Time out completed with RN/ RDCS. 22g HL placed x 1 to LAC , bubble study x 2 completed with aseptic tech throughout, TTE completed and HL d/c'd with pressure and dressing applied. Patient tolerated well. 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* [address] [place] [address] Transthoracic Echocardiogram Patient: Mindy Wade Room: Height: 65in MR Number: [id number] : 1990 Weight: 152lb Account: [id number] Gender: F BP: 103 / 62 Study Date: 02/01/2025 Age: 35 BSA: 1.76m^2 Referring physician: Mario Ramirez Interpreting physician: Arie Giles MD PERFORMING Prince Carrillo PRODUCT COORDINATOR Abdullahi Silver ORDERING Mario Ramirez REFERRING Mario Ramirez ATTENDING Mario Ramirez Procedure:TRANSTHORACIC ECHO (TTE) COMPLETE Order: Accession WITH BUBBLE Number:[id number] Indications: Pre-Transplant Evaluation for Chronic Liver Disease (k70.31). PMH: No prior cardiac history. Study data: Height: 65in. 165.1cm. Weight: 152lb. 69kg. Study status: Routine. Procedure: A transthoracic echocardiogram was performed. Image quality was good. Scanning was performed from the parasternal, apical, and subcostal acoustic windows. Intravenous contrast (agitated saline) was administered. Transthoracic echocardiogram. M-mode, complete 2D, complete spectral Doppler, and color Doppler. Birthdate: Patient birthdate: 1990. Age: Patient is 35year(s) old. Sex: gender: female. Body mass index: BMI: 25.3kg/m^2. Body surface area: BSA: 1.76m^2. Blood pressure: 103/62 Patient status: Inpatient. Study date: Study date: 02/01/2025. Study time: 01:56 PM. Location: Echo laboratory. Study Conclusions - Left ventricle: The cavity size is normal. Wall thickness is normal. Systolic function is normal. The estimated ejection fraction is 55-60%. Wall motion is normal; there are no regional wall motion abnormalities. Left ventricular diastolic function parameters are normal. - Mitral valve: There is mild regurgitation. - Left atrium: The atrium is mildly dilated. - Right ventricle: Systolic function is normal. - Right atrium: The atrium is mildly dilated. - Atrial septum: Agitated saline contrast study at baseline or with provocation, shows a very lqxypqtrxr-fy-fbju atrial level shunt. There is a shunt which may be intrapulmonary or intracardiac, but cannot be confidently differentiated. - Tricuspid valve: There is mild-moderate regurgitation. - Pulmonary arteries: The peak systolic pressure is 37mm Hg. Cardiac Anatomy Left ventricle: - The cavity size is normal. Wall thickness is normal. Systolic function is normal. The estimated ejection fraction is 55-60%. Wall motion is normal; there are no regional wall motion abnormalities. - The transmitral flow pattern is normal. The deceleration time of the early transmitral flow velocity is normal. The pulmonary vein flow pattern is normal. The tissue Doppler parameters are normal. Left ventricular diastolic function parameters are normal. Aorta: Aortic root: The root is normal in size. Aortic valve: - The valve is structurally normal. trileafletThe leaflets are normal thickness. Cusp separation is normal. Mobility is not restricted. Velocity is within the normal range. There is no stenosis. There is no regurgitation. The mean systolic gradient is 8mm Hg. The peak systolic gradient is 16mm Hg. The LVOT to aortic valve VTI ratio is 0.82. The valve area is 2.8cm^2. The valve area index is 1.61cm^2/m^2. The ratio of LVOT to aortic valve peak velocity is 0.76. The valve area is 2.6cm^2. The valve area index is 1.49cm^2/m^2. Mitral valve: - The valve is structurally normal. Mobility is not restricted. Inflow velocity is within the normal range. There is no evidence for stenosis. There is mild regurgitation. The peak diastolic gradient is 8mm Hg. The valve area by pressure half-time is 3.7cm^2. The valve area index by pressure half-time is 2.09cm^2/m^2. Left atrium: The atrium is mildly dilated. Atrial septum: - Agitated saline contrast study at baseline or with provocation, shows a very tuvyjtbxkx-pd-yawt atrial level shunt. There is a shunt which may be intrapulmonary or intracardiac, but cannot be confidently differentiated. Pulmonary artery: - The main pulmonary artery is normal-sized. Systolic pressure could not be accurately estimated. Main pulmonary artery: - Right ventricle: - The cavity size is normal. Wall thickness is normal. Systolic function is normal. Pulmonic valve: - Poorly visualized. Velocity is within the normal range. There is no evidence for stenosis. There is no regurgitation. Tricuspid valve: - The valve is structurally normal. Inflow velocity is within the normal range. There is mild-moderate regurgitation. Right atrium: The atrium is mildly dilated. Atrial septum: Agitated saline contrast study at baseline or with provocation, shows a very mwwjhxwsew-ty-eclo atrial level shunt. There is a shunt which may be intrapulmonary or intracardiac, but cannot be confidently differentiated. Pericardium: - There is no pericardial effusion. Systemic veins: Inferior vena cava: The IVC is normal-sized. The IVC is dilated. The IVC is normal-sized. Respirophasic diameter changes are in the normal range (> 50%), consistent with normal central venous pressure. Measurements Left ventricle Value Ref KWAN, LAX (H) 5.6 cm 3.8 - 5.2 ESD, LAX (H) 3.6 cm 2.2 - 3.5 KWAN/bsa, LAX (H) 3.2 cm/m^2 2.3 - 3.1 ESD/bsa, LAX (N) 2.0 cm/m^2 1.3 - 2.1 FS, LAX (N) 36 % 27 - 45 FS, LAX chord (N) 36 % 27 - 45 IVS, ED (N) 0.8 cm 0.6 - 0.9 ESD (H) 3.6 cm 2.2 - 3.5 ESD/bsa (N) 2.0 cm/m^2 1.3 - 2.1 PW, ED (H) 1.0 cm 0.6 - 0.9 IVS/PW, ED 0.84 --------- EDV (H) 154 ml 46 - 106 ESV (H) 54 ml 14 - 42 EF (N) 65 % 54 - 74 SV 118 ml --------- EDV/bsa (H) 88 ml/m^2 29 - 61 ESV/bsa (H) 31 ml/m^2 8 - 24 SV/bsa 67 ml/m^2 --------- SV, 1-p A2C 100 ml --------- SV/bsa, 1-p A2C 56.8 ml/m^2 --------- SV, 1-p A4C 131 ml --------- SV/bsa, 1-p A4C 74 ml/m^2 --------- E', lat pam, TDI (N) 13.5 cm/sec >=10.0 E/e', lat pam, TDI (N) 11 <=13 E', med pam, TDI (N) 12.0 cm/sec >=7.0 E/e', med pam, TDI 12 --------- E', avg, TDI 12.8 cm/sec --------- E/e', avg, TDI (N) 11 <=14 LVOT Value Ref Diam, S 2.1 cm --------- Area 3.5 cm^2 --------- Peak mi, S 1.52 m/sec --------- Peak grad, S 9 mm Hg --------- SV 118 ml --------- SV/bsa 67 ml/m^2 --------- Right ventricle Value Ref KWAN minor ax, A4C base (N) 3.8 cm 2.5 - 4.1 KWAN minor ax, A4C mid (N) 3.3 cm 1.9 - 3.5 TAPSE, MM (N) 3.4 cm >=1.7 Pressure, S 37 mm Hg --------- S' lateral (N) 19.6 cm/sec >=9.5 RVOT Value Ref Peak v, S 1.1 m/sec --------- Mean v, S 0.78 m/sec --------- Left atrium Value Ref AP dim, ES (H) 4.3 cm 2.7 - 3.8 AP dim index, ES (H) 2.4 cm/m^2 1.5 - 2.3 Aortic valve Value Ref Peak v, S 2 m/sec --------- Mean v, S 1.27 m/sec --------- Mean grad, S 8 mm Hg --------- Peak grad, S 16 mm Hg --------- LVOT/AV, VTI ratio 0.82 --------- MARIA ESTHER, VTI 2.8 cm^2 --------- MARIA ESTHER/bsa, VTI 1.61 cm^2/m^2 --------- LVOT/AV, Vpeak ratio 0.76 --------- MARIA ESTHER, Vmax 2.6 cm^2 --------- MARIA ESTHER/bsa, Vmax 1.49 cm^2/m^2 --------- Mitral valve Value Ref Peak E 1.42 m/sec --------- Peak A 0.44 m/sec --------- Decel slope 692 cm/s^2 --------- Decel time 205 ms --------- PHT 60 ms --------- Peak grad, D 8 mm Hg --------- Peak E/A ratio 3.2 --------- MVA, PHT 3.7 cm^2 --------- MVA/bsa, PHT 2.09 cm^2/m^2 --------- Pulmonic valve Value Ref Peak v, S 1.3 m/sec --------- Mean mi, S 0.91 m/sec --------- Tricuspid valve Value Ref TR peak v (N) 2.7 m/sec <=2.8 Peak RV-RA grad, S 29 mm Hg --------- Aortic root Value Ref Root diam (N) 3.4 cm 2.5 - 3.4 Root diam/bsa 1.9 cm/m^2 --------- Ascending aorta Value Ref AAo AP diam, S 3.0 cm --------- AAo AP diam/bsa, S 1.7 cm/m^2 --------- Pulmonary artery Value Ref Pressure, S 37 mm Hg --------- Main pulmonary artery Value Ref Mean grad 4 mm Hg --------- Systemic veins Value Ref Estimated CVP 8 mm Hg --------- Inferior vena cava Value Ref Diam (H) 2.3 cm <=2.1 Legend: (L) and (H) maribeth values outside specified reference range. (N) mcgraw values inside specified reference range. Reviewed and confirmed by Arie Giles MD [id number] Procedure Note Arie Giles MD - 02/01/2025 * [facility]* [address] [place] [id number] Transthoracic Echocardiogram Patient: Mindy Wade Room: Height: 65in MR Number: [id number] : 1990 Weight: 152lb Account: [id number] Gender: F BP: 103 / 62 Study Date: 02/01/2025 Age: 35 BSA: 1.76m^2 Referring physician: Mario Ramirez Interpreting physician: Arie Giles MD PERFORMING Prince Carrillo PRODUCT COORDINATOR Abdullahi Silver ORDERING Mario Ramirez REFERRING Mario Ramirez ATTENDING Mario Ramirez Procedure:TRANSTHORACIC ECHO (TTE) COMPLETE Order: Accession WITH BUBBLE Number:[id number] Indications: Pre-Transplant Evaluation for Chronic Liver Disease (k70.31). PMH: No prior cardiac history. Study data: Height: 65in. 165.1cm. Weight: 152lb. 69kg. Study status: Routine. Procedure: A transthoracic echocardiogram was performed.Image quality was good. Scanning was performed from the parasternal, apical,and subcostal acoustic windows. Intravenous contrast (agitated saline) was administered. Transthoracic echocardiogram. M-mode, [id number], complete spectral Doppler, and color Doppler. Birthdate: Patient birthdate: 1990. Age: Patient is 35year(s) old. Sex: Birthgender: female. Body mass index: BMI: 25.3kg/m^2. Body surface area: BSA: 1.76m^2. Blood pressure: 103/62 Patient status: Inpatient. Study date: Study date: 02/01/2025. Study time: 01:56 PM. Location: Echo laboratory. Study Conclusions - Left ventricle: The cavity size is normal. Wall thickness is normal. Systolic function is normal. The estimated ejection fraction is55-60%. Wall motion is normal; there are no regional wall motionabnormalities. Left ventricular diastolic function parameters are normal. - Mitral valve: There is mild regurgitation. - Left atrium: The atrium is mildly dilated. - Right ventricle: Systolic function is normal. - Right atrium: The atrium is mildly dilated. - Atrial septum: Agitated saline contrast study at baseline or with provocation, shows a very ipssbdhwid-bm-ozbi atrial level shunt. Thereis a shunt which may be intrapulmonary or intracardiac, but cannot be confidently differentiated. - Tricuspid valve: There is mild-moderate regurgitation. - Pulmonary arteries: The peak systolic pressure is 37mm Hg. Cardiac Anatomy Left ventricle: - The cavity size is normal. Wall thickness is normal. Systolic functionis normal. The estimated ejection fraction is 55-60%. Wall motion isnormal; there are no regional wall motion abnormalities. - The transmitral flow pattern is normal. The deceleration time of theearly transmitral flow velocity is normal. The pulmonary vein flow patternis normal. The tissue Doppler parameters are normal. Left ventricular diastolic function parameters are normal. Aorta: Aortic root: The root is normal in size. Aortic valve: - The valve is structurally normal. trileafletThe leaflets are normal thickness. Cusp separation is normal. Mobility is not restricted.Velocity is within the normal range. There is no stenosis. There is no regurgitation. The mean systolic gradient is 8mm Hg. The peak systolic gradient is 16mm Hg. The LVOT to aortic valve VTI ratio is 0.82. Thevalve area is 2.8cm^2. The valve area index is 1.61cm^2/m^2. The ratio ofLVOT to aortic valve peak velocity is 0.76. The valve area is 2.6cm^2. The valve area index is 1.49cm^2/m^2. Mitral valve: - The valve is structurally normal. Mobility is not restricted. Inflow velocity is within the normal range. There is no evidence forstenosis. There is mild regurgitation. The peak diastolic gradient is 8mm Hg.The valve area by pressure half-time is 3.7cm^2. The valve area index by pressure half-time is 2.09cm^2/m^2. Left atrium: The atrium is mildly dilated. Atrial septum: - Agitated saline contrast study at baseline or with provocation, showsa very yzcdugvekl-au-tulb atrial level shunt. There is a shunt which maybe intrapulmonary or intracardiac, but cannot be confidentlydifferentiated. Pulmonary artery: - The main pulmonary artery is normal-sized. Systolic pressure could notbe accurately estimated. Main pulmonary artery: - Right ventricle: - The cavity size is normal. Wall thickness is normal. Systolic functionis normal. Pulmonic valve: - Poorly visualized. Velocity is within the normal range. There is no evidence for stenosis. There is no regurgitation. Tricuspid valve: - The valve is structurally normal. Inflow velocity is within the normal range. There is mild-moderate regurgitation. Right atrium: The atrium is mildly dilated. Atrial septum: Agitated saline contrast study at baseline or with provocation, shows a very iypfpqiryw-jt-yask atrial level shunt. There suzanne shunt which may be intrapulmonary or intracardiac, but cannot beconfidently differentiated. Pericardium: - There is no pericardial effusion. Systemic veins: Inferior vena cava: The IVC is normal-sized. The IVC is dilated. The IVCis normal-sized. Respirophasic diameter changes are in the normal range (> 50%), consistent with normal central venous pressure. Measurements Left ventricle Value Ref KWAN, LAX (H) 5.6 cm 3.8 - 5.2 ESD, LAX (H) 3.6 cm 2.2 - 3.5 KWAN/bsa, LAX (H) 3.2 cm/m^2 2.3 - 3.1 ESD/bsa, LAX (N) 2.0 cm/m^2 1.3 - 2.1 FS, LAX (N) 36 % 27 - 45 FS, LAX chord (N) 36 % 27 - 45 IVS, ED (N) 0.8 cm 0.6 - 0.9 ESD (H) 3.6 cm 2.2 - 3.5 ESD/bsa (N) 2.0 cm/m^2 1.3 - 2.1 PW, ED (H) 1.0 cm 0.6 - 0.9 IVS/PW, ED 0.84 --------- EDV (H) 154 ml 46 - 106 ESV (H) 54 ml 14 - 42 EF (N) 65 % 54 - 74 SV 118 ml --------- EDV/bsa (H) 88 ml/m^2 29 - 61 ESV/bsa (H) 31 ml/m^2 8 - 24 SV/bsa 67 ml/m^2 --------- SV, 1-p A2C 100 ml --------- SV/bsa, 1-p A2C 56.8 ml/m^2 --------- SV, 1-p A4C 131 ml --------- SV/bsa, 1-p A4C 74 ml/m^2 --------- E', lat pam, TDI (N) 13.5 cm/sec >=10.0 E/e', lat pam, TDI (N) 11 <=13 E', med pam, TDI (N) 12.0 cm/sec >=7.0 E/e', med pam, TDI 12 --------- E', avg, TDI 12.8 cm/sec --------- E/e', avg, TDI (N) 11 <=14 LVOT Value Ref Diam, S 2.1 cm --------- Area 3.5 cm^2 --------- Peak mi, S 1.52 m/sec --------- Peak grad, S 9 mm Hg --------- SV 118 ml --------- SV/bsa 67 ml/m^2 --------- Right ventricle Value Ref KWAN minor ax, A4C base (N) 3.8 cm 2.5 - 4.1 KWAN minor ax, A4C mid (N) 3.3 cm 1.9 - 3.5 TAPSE, MM (N) 3.4 cm >=1.7 Pressure, S 37 mm Hg --------- S' lateral (N) 19.6 cm/sec >=9.5 RVOT Value Ref Peak v, S 1.1 m/sec --------- Mean v, S 0.78 m/sec --------- Left atrium Value Ref AP dim, ES (H) 4.3 cm 2.7 - 3.8 AP dim index, ES (H) 2.4 cm/m^2 1.5 - 2.3 Aortic valve Value Ref Peak v, S 2 m/sec --------- Mean v, S 1.27 m/sec --------- Mean grad, S 8 mm Hg --------- Peak grad, S 16 mm Hg --------- LVOT/AV, VTI ratio 0.82 --------- MARIA ESTHER, VTI 2.8 cm^2 --------- MARIA ESTHER/bsa, VTI 1.61 cm^2/m^2 --------- LVOT/AV, Vpeak ratio 0.76 --------- MARIA ESTHER, Vmax 2.6 cm^2 --------- MARIA ESTHER/bsa, Vmax 1.49 cm^2/m^2 --------- Mitral valve Value Ref Peak E 1.42 m/sec --------- Peak A 0.44 m/sec --------- Decel slope 692 cm/s^2 --------- Decel time 205 ms --------- PHT 60 ms --------- Peak grad, D 8 mm Hg --------- Peak E/A ratio 3.2 --------- MVA, PHT 3.7 cm^2 --------- MVA/bsa, PHT 2.09 cm^2/m^2 --------- Pulmonic valve Value Ref Peak v, S 1.3 m/sec --------- Mean mi, S 0.91 m/sec --------- Tricuspid valve Value Ref TR peak v (N) 2.7 m/sec <=2.8 Peak RV-RA grad, S 29 mm Hg --------- Aortic root Value Ref Root diam (N) 3.4 cm 2.5 - 3.4 Root diam/bsa 1.9 cm/m^2 --------- Ascending aorta Value Ref AAo AP diam, S 3.0 cm --------- AAo AP diam/bsa, S 1.7 cm/m^2 --------- Pulmonary artery Value Ref Pressure, S 37 mm Hg --------- Main pulmonary artery Value Ref Mean grad 4 mm Hg --------- Systemic veins Value Ref Estimated CVP 8 mm Hg --------- Inferior vena cava Value Ref Diam (H) 2.3 cm <=2.1 Legend: (L) and (H) maribeth values outside specified reference range. (N) mcgraw values inside specified reference range. Reviewed and confirmed by Arie Giles MD [id number] us Mario Ramirez MD CV ECHO ORDERABLES Final Resu lt documented in this encounter Visit Diagnoses Diagnosis 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) Pre-transplant evaluation for chronic liver disease 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) Cardiovascular risk factor Pre-transplant evaluation for liver transplant documented in this encounter Additional Health Concerns Assessment Noted Time PHQ-9 Depression Total Score: 13 11/04/ 025 2:00 PM EDT documented as of this encounter Care Teams Textile Screen Maker Relationship Specialty Start Date End Date Yonatan Graves DO [address] [place] [address] PCP - General 02/01/25 Farida Ortega, SPONSORSHIP COORDINATOR [address] [place] [address] Referring Physician Gastroenterology 09/02/23 documented as of this encounter
--- OUTSIDE RECORDS SUMMARY | 2025-02-07 13:00 | XMS_ITS | Encounter Summary ---
Author Organization [facility] Address [address] [place] [address] Care Team Providers Care Development Geologist Name Role Phone Yonatan Graves DO Primary Care Provider Farida Ortega SUPERVISOR SHIPFITTERS Unavailable [phone] Source Comments This information has been disclosed [...] release of HIV test results or diagnoses. [id number] Reason for Visit * Reason Comments Liver Transplant Evaluation Encounter Details Date Type Department Care Team (Late st Contact Info) Description 02/07/2025 1:00 PM EDT Office Visit [facility] Anesthesia Transplant at [address] [address] Unknown, [place] [address] [place] [address] [place] [address] Pre-transplant evaluation for chronic liver disease (Primary Dx) Social History Tobacco Use Types Packs/Day Years Used Date Smoking Tobacco: Former Cigarettes 0.3 1.2 0 07/22/2014 - 07/22/2015 Smokeless Tobacco: Never Tobacco Cessation:Counseling Given: No Alcohol Use Standard Drinks/Week Comments Not Currently [...] Sign Reading Time Taken Comments Blood Pressure 111/61 02/07/2025 1:15 PM EDT Pulse 71 02/07/2025 1:15 PM EDT Temperature 36.8 C (98.2 F) 02/07/2025 1:15 PM EDT Respiratory Rate 16 02/07/2025 1:15 PM EDT Oxygen Saturation 100% 02/07/2025 1:15 PM EDT Inhaled Oxygen Concentration 100% 02/07/2025 1 :15 PM EDT Weight 69.2 kg (152 lb 8 oz) 02/07/2025 1:15 PM EDT Height - - Body Mass Index 25.38 01/10/2025 1:23 PM EDT documented in this encounter H&P Notes * Richard Li MD - 02/07/2025 1:00 PM EDT Images from the original note were not included. Anesthesiology Consultation and Preoperative History and Physical for Liver Transplantation Date of Surgery: TBD. Surgeon: TBD. Chief Complaint: Hepatic cirrhosis Procedure: Liver transplant. History of Present Illness: Mindy Wade is a 35 y.o. year old female seen at the request of the [facility] Liver Transplant serviceto render an opinion on perioperative risk optimization and to coordinate medical care as necessaryrelated to liver transplantation. Ms. 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 She has achieved SVR with Harvoni & abstinance from EtOH & IV drug use, and is now being considered for liver transplantation. Past 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: Past 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: Diagnosis [...] Gastroenterology; Laterality: N/A; UPPER GASTROINTESTINAL ENDOSCOPY 09/21/2022 Social History: Social History Socioeconomic History Marital [...] date: 07/22/2014 Quit date: 07/22/2015 Years since quittin.5 Smokeless tobacco: Never Vaping Use Vaping status: Never Used Substance and Sexual Activity Alcohol use: Not Currently Drug use: Not Currently Sexual activity: Yes Partners: Male control/protection: Condom Other Topics Concern Caffeine Use No Occupational Exposure No Exercise No Seat Belt Yes Social History Narrative Not on file Social Drivers of Health Financial Resource Strain: Patient Declined (08/05/2023) Received from [facility] Overall Financial Resource Strain (CARDIA) Difficulty [...] file Physical Activity: Inactive (08/05/2023) Received from [facility] Exercise Vital Sign Days of Exercise per Week: 0 days Minutes of Exercise per Session: 0 min Stress: Stress Concern Present (08/05/2023) Received from [facility] [place] [facility] - Occupational Stress Questionnaire Feeling of Stress : Rather much Social Connections: Not At Risk (08/05/2023) Received from [facility] Family and Community Support If for [...] No Assistance needed for:: Not on file Family History: Family History Problem Relation Age of Onset Liver disease Father Cirrhosis Father Allergies: Allergies[1] Home Medications: Current Outpatient Medications Medication Instructions carvediloL (COREG) 3.125 mg, Oral, 2 times daily with meals furosemide (LASIX) 20 MG tablet TAKE 3 TABLETS(60 MG) BY MOUTH TWICE DAILY gabapentin (NEURONTIN) 800 mg, 3 times daily isoniazid (NYDRAZID) 900 mg, Oral, Weekly ondansetron (ZOFRAN) 4 mg, Oral, Every 8 hours PRN ondansetron (ZOFRAN-ODT) 8 mg, Oral, Every 8 hours PRN pyridoxine (vitamin B6) (B-6) 50 mg, Oral, Weekly rifapentine (PRIFTIN) 900 mg, Oral, Weekly spironolactone (ALDACTONE) 150 mg, Oral, 2 times daily Review of Systems: General: Reports fatigue in setting of recent TB treatment initiation. No fevers, chills. HEENT: No headaches, dizziness, vision loss. Pulmonary: No SOB, orthopnea, cough, wheezing. Cardiovascular: No chest pain, palpitations, edema. GI: No nausea, vomiting, diarrhea, abdominal pain, melena, hematochezia. Neuro: History of seizures during in 2017; none since. No numbness. Skin: No rashes, itching. Ng Activity Scale: 8 - Moving heavy furniture; rapidly climbing stairs; carrying 20 pounds up stairs. Physical Exam: Vitals: 02/07/25 1315 BP: 111/61 Pulse: 71 Resp: 16 Temp: 98.2 ??F (36.8 ??C) SpO2: 100% Gen: Age-appropriate adult in no acute distress sitting in chair. HEENT: EOM grossly intact, sclera non-icteric. NECK: Soft, supple, trachea midline. CV: RRR, S1 and S2 appropriate, no murmur appreciated. No edema. PULM: CTAB. No wheezes/rales/rhonchi appreciated. Normal respiratory effort. ABD: Soft, non-tender, non-distended. No masses appreciated. MSK: No deformities noted, ROM grossly normal. SKIN: Warm and dry. NEURO: A&Ox4, answers questions appropriately, moves all extremities spontaneously. PSYCH: Appropriate affect, appropriate eye contact. Airway: Mallampati III (soft and hard palate and base of uvula visible), mouth opening >2 fingerbreadths, full neck ROM, no loose teeth (multiple crowns; patient reports two front teeth to have crowns placed prior to listing). Studies: TTE 02/01/25: - Left ventricle: The cavity size is [...] baseline or with provocation, shows a very wctjaeoask-at-oqzv atrial level shunt. There is a shunt which may be intrapulmonary or intracardiac, but cannot be confidently differentiated. - Tricuspid valve: There is mild-moderate regurgitation. - Pulmonary arteries: The peak systolic pressure is 37mm Hg. Pulmonary artery: - The main pulmonary artery is normal-sized. Systolic pressure could not be accurately estimated. TAPSE, MM (N) 3.4 cm >=1.7 Pressure, S 37 mm Hg --------- S' lateral (N) 19.6 cm/sec >=9.5 TR peak v (N) 2.7 m/sec <=2.8 EKG 12/20/24: Ventricular Rate: 63 BPM Atrial Rate: 63 BPM P-R Interval: 118 ms QRS Duration: 84 ms QT: 480 ms QTc: [address] 02/01/25: Performed 02/01/25 as part of TB workup; read still pending. EGD 07/28/24: - Small (< 5 mm) esophageal varices with no bleeding and no stigmata of recent bleeding. - Gastric antral vascular ectasia without bleeding. - A single lesion diagnostic of aberrant pancreas was found in the stomach. - Normal duodenal bulb and second portion of the duodenum. - No specimens collected. Assessment and Plan: ASA Physical Status: 4 Mindy Wade is an 35 y.o. female seen for evaluation and risk assessment prior to liver transplantation. #Cardiac risk #HTN Home regimen: carvedilol. Patient has normal biventricular & diastolic function, and has no evidence of ischemia on stress testing. TTE 02/01/25 showed mild MR and mild-moderate TR. - Patient reports good functional status; can climb >2 flights of stairs without stopping. - Reports always taking PM dose of carvedilol; decides whether to take AM dose of carvedilol based on AM blood pressure. - No further cardiac testing necessary from anesthesia perspective. #ESLD 2/2 EtOH use & HCV Home regimen: carvedilol, furosemide, spironolactone. Patient with prior history of IVDU; last use was in 2016. Achieved SVR from HCV with Harvoni in 2018. Abstinent from EtOH since 07/2023. Decompensated by ascites (not requiring paracenteses) and jaundice. MELD 3.0: 15 at 12/20/2024 4:30 PM [...] years Sex: Female at 12/20/2024 4:30 PM The patient's liver disease is decompensated by: Ascites: Currently managed with: dietary changes and diuretics Portal HTN/Varices: last EGD on 07/28/24 demonstrated small nonbleeding varices. Hepatic encephalopathy: not currently experiencing; not requiring lactulose or rifaximin. Coagulopathy: Lab Results Component Value Date PLT 111 (L) 12/20/2024 Lab Results Component Value Date INR 1.3 (H) 12/20/2024 Sodium management: Sodium Date/Time Value Ref Range Status 12/20/2024 04:30 PM 138 133 - 146 mmol/L Final 08/18/2024 11:06 AM 138 133 - 146 mmol/L Final 05/12/2024 10:08 AM 135 133 - 146 mmol/L Final Hepatopulmonary disease: Patient does not have a history of TIPS. #Hx positive Quantiferon test #Asthma Had positive Quantiferon 12/20/24. Had no active TB symptoms at the time; did recall a URI ~2-3 months prior. CXR 01/10/25 showed no evidence of TB. CT chest 02/01/25 is pending. - ID planning for latent TB therapy with 3 months weekly isoniazid & rifapentine, which patienthas started. - Patient reports infrequent (less than daily) use of albuterol for asthma symptoms. Unlabored breathing on room air without wheezing on exam today. #Hx of seizure disorder Patient reports experiencing several seizures while in 2017, for which she was started on an AED. She is unsure which medication was used. Denies any seizures before or after this ,and reports she has since been taken off her AED without seizure recurrence. #Hx DVT Reports being diagnosed with a DVT after an ankle injury in 2018 or 2019; recalls being on Xarelto for several months afterward. No longer taking anticoagulants. Recommendations for upcoming procedure include: Type of Anesthetic: GETA. Airway: does not predict difficulty; Mask ventilation is not expected to be difficult. IV Access: multiple large bore PIVs and MAC x1 vs MAC x2. Monitors: routine monitors plus arterial line, CVP, PAP, Vigileo, and possible LANDRY. Analgesia: opioid and non-opioid adjuncts. PONV: multimodal prophylaxis. Postoperative Disposition: SICU. CRRT: is not anticipated for the OR, but final determination will be made based on day of surgery labs. Sodium Management: hyponatremic fluid management is not anticipated for the OR, but final determination will be made based on day of surgery labs. There are no absolute contraindications from an anesthesia perspective to listing this patient for liver transplantation. The patient is a average/moderate risk patient for a high risk procedure. The patient and/or family member present verbalized understanding of surgery, and anesthetic plan and agree to proceed. I have communicated my recommendations for the perioperative care of this patient with the surgeon through a shared EMR. The reason for placement (benefit) and alternatives for arterial line placement were discussed withthe patient/NOK/POA. The risks, including but not limited to bleeding, infection, local tissue damage, arterial injury possibly requiring surgical repair, inability to place, inadvertent venous access and rarely were discussed with the patient/NOK/POA. All questions answered. The patient/NOK/POA agreed to proceed with arterial line placement. The reason for central line (CVC) placement (benefit) and alternatives were discussed with the patient/NOK/POA. The risks for CVC placement, including but not limited to bleeding, infection, local tissue damage, pneumothorax, inability to place, inadvertent arterial access possibly requiring surgical repair and remote possibility of were discussed with the patient/NOK/POA. All questions were answered. The patient or their POA/NOK agreed to proceed with CVC placement. The reason for placement (benefit) as well as alternatives to pulmonary artery catheter (PAC) were discussed with the patient/NOK/POA. The risks, including but not limited to, bleeding, infection, local tissue damage, damage to cardiac tissue, arrhythmia possibility requiring medical/electrical treatment, PA rupture, and remote possibility of were discussed with the patient/NOK/POA. All questions were answered and the patient/NOK/POA agreed to proceed with PAC placement. The reason for (benefit) and alternatives to transesophageal echocardiography (LANDRY) were discussed with the patient/NOK/POA. The risks, including but not limited to, bleeding, dental/oropharyngeal trauma, sore throat, dysphagia, esophageal injury possibility requiring surgical repair and the remote possibility of were discussed with the patient/NOK/POA who expressed understanding and agreedto proceed with LANDRY placement. The patient had NO identifiable absolute contraindications to LANDRY placement based on history, ROS, exam and chart review Richard Li MD Department of Anesthesiology 02/07/2025 1:45 PM [1] Allergies Allergen Reactions Amoxicillin Rash Morphine Rash Penicillins Rash documented in this encounter Plan of Treatment Not on file documented as of this encounter Visit Diagnoses Diagnosis Pre-transplant evaluation for chronic liver disease- Primary documented in this encounter Additional Health Concerns Assessment Noted Time PHQ-9 Depression Total Score: 13 11/04/ 025 2:00 PM EDT documented as of this encounter Care Teams Development Geologist Relationship Specialty Start Date End Date Yonatan Graves DO [address] [place] [address] PCP - General 02/01/25 Farida Ortega, SUPERVISOR SHIPFITTERS [address] [place] [address] Referring Physician Gastroenterology 09/02/23 documented as of this encounter
--- OUTSIDE RECORDS SUMMARY | 2025-02-07 14:57 | XMS_ITS | Encounter Summary ---
Author Organization [facility] Address [address] [place] [id number] Care Team Providers Care Bench Loom Weaver Name Role Phone Yonatan Graves DO Primary Care Provider Farida Ortega POWER HOUSE CONTROL ROOM OPERATOR Unavailable Source Comments This information has been [...] release of HIV test results or diagnoses. [id number] Reason for Referral * Imaging/Cardiovascular Scan (Routine) - Closed Specialty Diagnoses / Procedures Referred By Roselyn mccollum Referred To Contact Radiology Diagnoses 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) Pre-transplant evaluation for liver transplant Procedures MRI Abdomen W and WO contrast Mario Ramirez MD [address] [facility]. [address] Phone: tel: fax: Referral ID Status Reason Start Date Expiration Date Visits Re quested Visits Authorized [id number] Closed 12/20/2024 06/18/2025 1 1 Reason for Visit * Auth/Cert (Routine) Specialty Diagnoses / Procedures Referred By Roselyn mccollum Referred To Contact Radiology [facility] MRI at [address] [address] Phone: tel: Referral ID Status Reason Start Date Expiration Date Visits Re quested Visits Authorized [id number] 1 1 Encounter Details Date Type Department Care Team (Latest Contact Info) Description 02/07/2025 2:57 PM EDT - 02/07/2025 11:59 PM EDT Hospital Encounter [facility] MRI at [address] [place] [address] Mario Ramirez MD [address] [facility]. [id number] 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); Pre-transplant evaluation for liver transplant Discharge Disposition: [...] - Inhaled Oxygen Concentration - - Weight 68.9 kg (152 lb) 02/07/2025 5:53 PM EDT Height - - Body Mass Index 25.29 01/10/2025 1:23 PM EDT documented in this encounter Medications at [...] MRI ABDOMEN W AND WO CONTRAST Routine 02/07/2025 5:45 PM EDT 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) Pre-transplant evaluation for liver transplant documented in this encounter Results * MRI Abdomen W and WO contrast (02/07/2025 5:45 PM EDT) Anatomical Region Laterality Modality Abdomen Magnetic Resonan ce 02/07/2025 4:48 PM EDT Impressions 02/08/2025 2:53 PM EDT IMPRESSION: 1. T1-hyperintese arterially enhancing nodule with wash out, now with capsular enhancement. Findings consistent with an LIRADS-5 lesion, however findings are atypical due to intrinsic T1 hyperintensity. This is favored to represent an atypical appearance of an HCC. 2. Multiple additional LIRADS 3 and 4 lesions are unchanged with no new focal hepatic lesions identified. 3. Cirrhotic liver morphology with sequela of portal hypertension. Approved by Jean Marie Dumont MD on 02/08/2025 2:43 PM EDT I have personally reviewed the images and I agree with this report. Report Verified by: Seble Crawford MD at 02/08/2025 2:53 PM EDT Narrative 02/08/2025 2:53 PM EDT EXAM: MRI ABDOMEN W AND WO CONTRAST CLINICAL INDICATION: Cirrhosis - liver lesions - LR3; 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); Pre-transplant evaluation for liver transplant TECHNIQUE: Multisequence, multiplanar MR imaging of the abdomen with and without contrast. CONTRAST: 7 mL of GADOBUTROL 1 MMOL/ML INTRAVENOUS SYRINGE ([facility]) administered intravenously COMPARISON: MRI abdomen 08/10/2024 FINDINGS: The lung bases are clear. There is a nodular contour of the liver with heterogeneous enhancement on the arterial phase consistent with cirrhosis. There are multiple small hepatic lesions as detailed below. * Subcapsular segment 3 T1 hyperintense lesion measuring 1.1 x 1.0 cm with arterial hyperenhancement, non-peripheral washout on delayed sequences, and new capsular enhancement on delayed sequences. (LIRADS-M; image 267 and 745 series 14). * T1 hyperintense lesion within the right hepatic dome measuring 0.8 x 0.7 cm with arterial enhancement and washout on delayed sequences (LIRADS 4; image 185 and 612 series 14). * Caudate lobe lesion measuring 0.9 x 0.8 cm with arterial enhancement and washout on delayed sequences (LIRADS 4; image 228 and 708 series 14). * Subcapsular segment 5 T1 hyperintense lesion measuring 0.5 x 0.5 cm with arterial hyperenhancement and peripheral washout on delayed sequences (LIRADS 4; image 263 and 743 series 14). * Subcapsular segment 4B T1 hyperintense nodule measuring 0.6 x 0.5 cm with arterial hyperenhancement without washout (LIRADS 3; image 226 series 14). * Subcapsular segment IVb T1 hyperintense nodule measuring 0.4 x 0.3 cm with arterial hyperenhancement without washout (LIRADS 3; image 395 series 14). * Two additional subcentimeter T1 hyperintense arterially hyperenhancing lesions within segment 6 (LIRADS 3; image 260 series 14). There are several dependent stones within the gallbladder without associated wall thickening. No biliary ductal dilation. The spleen, pancreas, adrenal glands, and kidneys are unremarkable. The included GI tract is normal in caliber and wall thickness. No lymphadenopathy. The portal vein is patent. There are several small varices of the GE junction. Prominent recanalized umbilical vein. No free fluid. The included soft tissues and osseous structures are unremarkable. Procedure Note Seble Crawford MD - 02/08/2025 EXAM: MRI ABDOMEN W AND WO CONTRAST CLINICAL INDICATION: Cirrhosis - liver lesions - LR3; Alcoholic cirrhosisof liver with ascites (CMS-HCC); Pre-transplant evaluation for livertransplant TECHNIQUE: Multisequence, multiplanar MR imaging of the abdomen with andwithout contrast. CONTRAST: 7 mL of GADOBUTROL 1 MMOL/ML INTRAVENOUS SYRINGE ([facility])administered intravenously COMPARISON: MRI abdomen 08/10/2024 FINDINGS: The lung bases are clear. There is a nodular contour of the liver with heterogeneous enhancement onthe arterial phase consistent with cirrhosis. There are multiple smallhepatic lesions as detailed below. * Subcapsular segment 3 T1 hyperintense lesion measuring 1.1 x 1.0 cmwith arterial hyperenhancement, non-peripheral washout on delayedsequences, and new capsular enhancement on delayed sequences. (LIRADS-M;image 267 and 745 series 14). * T1 hyperintense lesion within the right hepatic dome measuring 0.8 x0.7 cm with arterial enhancement and washout on delayed sequences (LIRADS4; image 185 and 612 series 14). * Caudate lobe lesion measuring 0.9 x 0.8 cm with arterial enhancementand washout on delayed sequences (LIRADS 4; image 228 and 708 [id number]). * Subcapsular segment 5 T1 hyperintense lesion measuring 0.5 x 0.5 cmwith arterial hyperenhancement and peripheral washout on delayed sequences(LIRADS 4; image 263 and 743 series 14). * Subcapsular segment 4B T1 hyperintense nodule measuring 0.6 x 0.5 cmwith arterial hyperenhancement without washout (LIRADS 3; image 226 [id number]). * Subcapsular segment IVb T1 hyperintense nodule measuring 0.4 x 0.3 cmwith arterial hyperenhancement without washout (LIRADS 3; image 395 [id number]). * Two additional subcentimeter T1 hyperintense arterially hyperenhancinglesions within segment 6 (LIRADS 3; image 260 series 14). There are several dependent stones within the gallbladder withoutassociated wall thickening. No biliary ductal dilation. The spleen, pancreas, adrenal glands, and kidneys are unremarkable. The included GI tract is normal in caliber and wall thickness. No lymphadenopathy. The portal vein is patent. There are several smallvarices of the GE junction. Prominent recanalized umbilical vein. No freefluid. The included soft tissues and osseous structures areunremarkable. IMPRESSION: 1. T1-hyperintese arterially enhancing nodule with wash out, now withcapsular enhancement. Findings consistent with an LIRADS-5 lesion, howeverfindings are atypical due to intrinsic T1 hyperintensity. This is favoredto represent an atypical appearance of an HCC. 2. Multiple additional LIRADS 3 and 4 lesions are unchanged with no newfocal hepatic lesions identified. 3. Cirrhotic liver morphology with sequela of portal hypertension. Approved by Jean Marie Dumont MD on 02/08/2025 2:43 PM EDT I have personally reviewed the images and I agree with this report. Report Verified by: Seble Crawford MD at 02/08/2025 2:53 PM EDT us Mario Ramirez MD IMG MRI ORDERABLES Final Resu lt documented in this encounter Visit Diagnoses Diagnosis 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) Pre-transplant evaluation for liver transplant documented in this encounter Administered Medications Inactive Administered Medications - up to 3 most recent administrations Medication Order MAR Action Action Date Dose Rate Site gadobutrol (GADAVIST) 1 mmol/1 mL IV syringe 7 mL 7 mL (rounded from 6.89 mL = 0.1 mL/kg 68.9 kg), Intravenous, IMG once as needed, contrast, Starting on 02/07/25 at 1823, For 1 dose Given 02/07/2025 5:54 PM EDT 7 mLs documented in this encounter Additional Health Concerns Assessment Noted Time PHQ-9 Depression Total Score: 13 025 2:00 PM EDT documented as of this encounter Care Teams Bench Loom Weaver Relationship Specialty Start Date End Date Yonatan Graves DO [address] [place] [address] PCP - General 02/01/25 Farida Ortega, POWER HOUSE CONTROL ROOM OPERATOR [address] [place] [address] Referring Physician Gastroenterology 09/02/23 documented as of this encounter
[2025-03-09 19:17] VITALS: BP 115/61; PULSE 89; RESP 18; TEMP 36.6; O2SAT 97; BMI 24.1
[2025-03-09 19:24] VITALS: BP 115/61; PULSE 89; RESP 22; TEMP 36.6; O2SAT 98
--- OUTSIDE RECORDS SUMMARY | 2025-03-09 19:34 | XMS_ITS | Encounter Summary ---
Author Organization [facility] Address [address] [place] [address] Care Team Providers Care Nut Processing Supervisor Name Role Phone Yonatan Graves DO Primary Care Provider Fariad Ortega EYEDOTTER Unavailable Source Comments This information has been [...] release of HIV test results or diagnoses. [id number] Encounter Details Date Type Department Care Team (Late st Contact Info) Description 03/09/2025 Telephone [facility] Liver Transplant at [address] [place] [address] Tresa Reilly MA Social History Tobacco [...] Progress Notes * Abdullahi Cano RN - 03/09/2025 3:13 PM EDT Spoke with patient and reviewed recent labs. Patient with complaints of increased respiratory issues since starting her TB medication. Patient reports a dry, non productive cough, along with increased usage of her inhaler. No associated fevers. Will reviewed with hepatology and ID. * Tresa Reilly MA - 03/09/2025 2:40 PM EDT Patient called to verify if we received the lab work from [facility]. Patient stated that she is pretty sick and wanted to verify if the labs were received for review. I advised the patient that I entered the labs, sent them to the pre-coordinator and he will review with MD and give her a call back with next steps. documented in this encounter Plan of Treatment Not on file documented as of this encounter Visit Diagnoses Not on filedocumented in this encounter Additional Health Concerns Assessment Noted Time PHQ-9 Depression Total Score: 13 025 2:00 PM EDT documented as of this encounter Care Teams Nut Processing Supervisor Relationship Specialty Start Date End Date Yonatan Graves DO [address] [place] [address] PCP - General 02/01/25 Farida Ortega, EYEDOTTER [address] [place] [address] Referring Physician Gastroenterology 09/02/23 documented as of this encounter
--- OUTSIDE RECORDS SUMMARY | 2025-03-09 19:34 | XMS_ITS | Encounter Summary ---
Author Organization [facility] Address [address] [place] [address] Care Team Providers Care Laborer Shipyard Name Role Phone Farida Ortega FLOOR LAYER TILE Unavailable [phone] Source Comments This information has been disclosed [...] release of HIV test results or diagnoses. [id number] Health Encounter Details Date Type Department Care Team (Late st Contact Info) Description 01/11/2025 Results Follow-Up [facility] Liver Transplant at [address] [address] Abdullahi Cano, KONSTANTIN X-ray Chest PA and [...] rifapentine). Note thatisoniazid will be 3 pills (276hsr2=662vm), rifapentine will be 6 pills ([id number]) + vitamin B6 (1pill) = total of 10 pills that she will take once a week. I sent prescription to her local pharmacy in [place], but please check with pt and may need to check with her pharmacy if they can get the meds. Sometimes rifapentine is hard to get and their best option will be to come to [facility] pharmacy (they usually have it). If needed [...] if issues can always repeat LFTs sooner. Best, Frank. ----- Message ----- From: Sharon, Results In Sent: 01/10/2025 4:34 PM EDT To: Frank Kowalski MD documented in this encounter Plan of Treatment Not on file documented as of this encounter Visit Diagnoses Not on filedocumented in this encounter Additional Health Concerns Assessment Noted Time PHQ-9 Depression Total Score: 13 025 2:00 PM EDT documented as of this encounter Care Teams Laborer Shipyard Relationship Specialty Start Date End Date Farida Ortega, FLOOR LAYER TILE [address] [address] Referring Physician Gastroenterology 09/02/23 documented as of this encounter
--- OUTSIDE RECORDS SUMMARY | 2025-03-09 19:34 | XMS_ITS | Encounter Summary ---
Author Organization [facility] Address [address] [place] [address] Care Team Providers Care Sole Rounding Machine Operator Name Role Phone Yonatan Graves DO Primary Care Provider Adryan Bearden Unavailable Encounter Details Date Type Department Care Team (Latest Contact Info) Description 02/08/2025 Travel Social History Tobacco Use Types Packs/Day [...] plan has been documented for the patient 02/18/2025 9:08 AM EDT documented as of this encounter Care Teams Sole Rounding Machine Operator Relationship Specialty Start Date End Date Yonatan Graves DO [address] [facility] [address] [place] [address] PCP - General 09/24/22 Adryan Bearden PA [facility] [place] [address] Referring Physician Gastroenterology 09/24/22 documented as of this encounter
--- OUTSIDE RECORDS SUMMARY | 2025-03-09 19:34 | XMS_ITS | Encounter Summary ---
Author Organization [facility] Address [address] [place] [address] Care Team Providers Care Sap Solution Manager Consultant Name Role Phone Farida Ortega BLOCK TRADER Unavailable [phone] Source Comments This information has been disclosed [...] release of HIV test results or diagnoses. [id number] Health Encounter Details Date Type Department Care Team (Late st Contact Info) Description 01/11/[address] [facility] Liver Transplant at [address] [address] Abdullahi Cano, KONSTANTIN Social History Tobacco Use Types Packs/Day Years [...] 12/20 Assistance needed for: Not on file Comments No Sex and Gender Information Value [...] documented as of this encounter Care Teams Sap Solution Manager Consultant Relationship Specialty Start Date End Date Farida Ortega, BLOCK TRADER [address] [address] Referring Physician Gastroenterology 09/02/23 documented as of this encounter
--- OUTSIDE RECORDS SUMMARY | 2025-03-09 19:34 | XMS_ITS | Encounter Summary ---
Author Organization [facility] Address [address] [place] [address] Care Team Providers Care Commissary Helper Name Role Phone Yonatan Graves DO Primary Care Provider Farida Ortega ADULT REMEDIAL EDUCATION INSTRUCTOR Unavailable [phone] Source Comments This information has been disclosed [...] release of HIV test results or diagnoses. [id number] Encounter Details Date Type Department Care Team (Late st Contact Info) Description 09/02/2023 Orders Only [facility] [address] [place] [address] Alyssa Lerma Social History Tobacco Use Types [...] on filedocumented in this encounter Care Teams Commissary Helper Relationship Specialty Start Date End Date Yonatan Graves DO [address] [place] [address] PCP - General 02/01/25 Farida Ortega, ADULT REMEDIAL EDUCATION INSTRUCTOR [address] [place] [phone] Referring Physician Gastroenterology 09/02/23 documented as of this encounter
--- OUTSIDE RECORDS SUMMARY | 2025-03-09 19:34 | XMS_ITS | Encounter Summary ---
Author Organization [facility] Address [address] [place] [address] Care Team Providers Care Heel Cementer Name Role Phone Yonatan Graves DO Primary Care Provider Adryan Bearden Unavailable Encounter Details Date Type Department Care Team (Latest Contact Info) Description 01/20/2025 Travel Social History Tobacco Use Types Packs/Day [...] documented as of this encounter Care Teams Heel Cementer Relationship Specialty Start Date End Date Yonatan Graves DO [address] [facility] [address] [place] [address] PCP - General 09/24/22 Adryan Bearden PA [facility]8 [place] [address] Referring Physician Gastroenterology 09/24/22 documented as of this encounter
--- OUTSIDE RECORDS SUMMARY | 2025-03-09 19:34 | XMS_ITS | Encounter Summary ---
Author Organization [facility] Address [address] [place] [address] Care Team Providers Care Dude Wrangler Name Role Phone Yonatan Graves DO Primary Care Provider Adryan Bearden Unavailable Encounter Details Date Type Department Care Team ([facility] st Contact Info) Description 10/11/2022 Orders Only External Location [address] [place] [address] Provider, External Social History Tobacco Use Types [...] on filedocumented in this encounter Care Teams Dude Wrangler Relationship Specialty Start Date End Date Yonatan Graves DO [address] [facility] [address] [place] [address] PCP - General 09/24/22 Adryan Bearden PA [address] [place] [address] Referring Physician Gastroenterology 09/24/22 documented as of this encounter
--- OUTSIDE RECORDS SUMMARY | 2025-03-09 19:34 | XMS_ITS | Encounter Summary ---
Author Organization [facility] Address [address] [place] [address] Care Team Providers Care Chemical Manager Name Role Phone Farida Ortega COURSE INSTRUCTOR Unavailable [phone] Source Comments This information has been disclosed [...] release of HIV test results or diagnoses. [id number] Health Encounter Details Date Type Department Care Team (Late st Contact Info) Description 12/20/2024 Nutrition [facility] Kidney Transplant at [address] [address] Yonatan Sarmiento, RD Social History Tobacco Use [...] 3.8 12/20/2024 Lab Results Component Value Date [id number] 28.0 (L) 12/20/2024 PMH: Past 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: [...] Dietitian - Solid Organ Transplant Contact via [employer] Chat [1] Allergies Allergen Reactions Amoxicillin Rash Morphine Rash Penicillins Rash documented in this encounter Plan of Treatment Not on file documented as of this encounter Visit Diagnoses Not on filedocumented in this encounter Additional Health Concerns Assessment Noted Time PHQ-9 Depression Total Score: 13 11/04/2 025 2:00 PM EDT documented as of this encounter Care Teams Chemical Manager Relationship Specialty Start Date End Date Farida Ortega, COURSE INSTRUCTOR [address] [place] [phone] Referring Physician Gastroenterology 09/02/23 documented as of this encounter
--- OUTSIDE RECORDS SUMMARY | 2025-03-09 19:34 | XMS_ITS | Encounter Summary ---
Author Organization [facility] Address [address] [place] [address] Care Team Providers Care Shape Brick Molder Name Role Phone Yonatan Graves DO Primary Care Provider Farida Ortega CAFETERIA TABLE ATTENDANT Unavailable [phone] Source Comments This information has been disclosed [...] release of HIV test results or diagnoses. [id number] Encounter Details Date Type Department Care Team (Late st Contact Info) Description 01/11/2025 Orders Only PROVIDER MEDICINE [address] [place] [phone] Frank Beltran MD [address] [place] [phone] Latent tuberculosis (Primary Dx) Social History Tobacco [...] documented as of this encounter Care Teams Shape Brick Molder Relationship Specialty Start Date End Date Yonatan Graves DO [address] [place] [address] PCP - General 02/01/25 Farida Ortega, CAFETERIA TABLE ATTENDANT [address] [place] [address] Referring Physician Gastroenterology 09/02/23 documented as of this encounter
--- OUTSIDE RECORDS SUMMARY | 2025-03-09 19:34 | XMS_ITS | Encounter Summary ---
Author Organization [facility] Address [address] [place] [address] Care Team Providers Care Leather Sorter Name Role Phone Farida Ortega INTERIM CONTROLLER Unavailable [phone] Source Comments This information has been disclosed [...] release of HIV test results or diagnoses. [id number] Health Encounter Details Date Type Department Care Team (Late st Contact Info) Description 01/11/2025 Orders Only [facility] Liver Transplant at [address] [address] Abdullahi Cano, KONSTANTIN Alcoholic cirrhosis of liver [...] documented as of this encounter Care Teams Leather Sorter Relationship Specialty Start Date End Date Farida Ortega, INTERIM CONTROLLER [address] [phone] Referring Physician Gastroenterology 09/02/23 documented as of this encounter
--- OUTSIDE RECORDS SUMMARY | 2025-03-09 19:34 | XMS_ITS | Encounter Summary ---
Author Organization [facility] Address [address] [place] [address] Care Team Providers Care Zigzag Appliquer Name Role Phone Yonatan Graves DO Primary Care Provider Adryan Bearden Unavailable Encounter Details Date Type Department Care Team ([facility] st Contact Info) Description 08/22/2022 Orders Only External Location [address] [place] [address] Yonatan Graves, DO [address] [place] [address] Social History Tobacco Use Types [...] on filedocumented in this encounter Care Teams Zigzag Appliquer Relationship Specialty Start Date End Date Yonatan Graves DO [facility] [address] [place] [address] PCP - General 09/24/22 Adryan Bearden PA [address] [place], [place] [phone] Referring Physician Gastroenterology 09/24/22 documented as of this encounter
--- OUTSIDE RECORDS SUMMARY | 2025-03-09 19:34 | XMS_ITS | Encounter Summary ---
Author Organization [facility] Address [address] [place] [id number] Care Team Providers Care Snuff Maker Name Role Phone Kierra Guajardo MD Primary Care Provide r Encounter Details Date Type Department Care Team (Late st Contact Info) Description 11/29/2024 Results Follow-Up [facility] OBGYN [address] [place] [address] Pao Hanley, DINKEY DISPATCHER [address] [facility] [address] [place] [address] Social History Tobacco Use Types Packs/Day Years Used Date Smoking Tobacco: Former Cigarettes Smokeless Tobacco: Never Alcohol Use Standard Drinks/Week Comments Not Currently 0 (1 standard drink = 0.6 oz pure alcohol) 4-6 wine coolers daily for several years [facility] Utilities Answer Date Recorded In the past 12 months has [email or web address], gas, oil, or water [employer] threatened to shut off services in your [...] medical care, and heating? Patient declined 08/05/2023 [facility] of Occupat ional Health - Occupational Stress [...] GED or equivalent No 08/05/2023 Preferred Language Martiniquais 08/05/2023 PHQ-2 Answer Date Recorded Retired PHQ-9: [...] documented as of this encounter Care Teams Snuff Maker Relationship Specialty Start Date End Date Kierra Guajardo MD [address] [place] [address] PCP - General Internal Medicine 10/23/23 documented as of this encounter
--- OUTSIDE RECORDS SUMMARY | 2025-03-09 19:34 | XMS_ITS | Encounter Summary ---
Author Organization [facility] Address [address] [place] [address] Care Team Providers Care Grounding Engineer Name Role Phone Farida Ortega PUSH BENCH OPERATOR HELPER Unavailable Source Comments This information has been [...] release of HIV test results or diagnoses. [id number] Reason for Visit * Reason Comments Medication Refill Encounter Details Date Type Department Care Team (Late st Contact Info) Description 12/23/2024 Refill [facility] Gastroenterology at [facility] [address] [address] [place] [address] Subhash Connolly, DESKTOP SUPPORT MANAGER [address] [place] [address] Social History Tobacco Use Types [...] documented as of this encounter Care Teams Grounding Engineer Relationship Specialty Start Date End Date Farida Ortega, PUSH BENCH OPERATOR HELPER [address] [place] [address] Referring Physician Gastroenterology 09/02/23 documented as of this encounter
--- OUTSIDE RECORDS SUMMARY | 2025-03-09 19:34 | XMS_ITS | Clinical Summary ---
Author Organization [facility] Address [address] [place] [address] Care Team Providers Care Drywall Applicator Name Role Phone Yonatan Graves DO Primary [...] 3 times a day. 90 tablet 5 03/17/20 25 Active gabapentin (Neurontin) 800 MG tablet Take 1 tablet by mouth 3 times a day. 90 tablet 5 02/16/20 25 Discontinu ed(Reorder ) Active Problems Problem [...] organization. Date Type Department Care Team Description 02/24/2025 Travel 02/08/2025 Travel 01/20/2025 Travel 12/28/2024 Travel from Last 3 Months Immunizations Immunization [...] Health Maintenance Due Date Last Done Comments [facility]-Medicare Annual Wellness (AWV) 1990 [facility]-/Child/Adol SDOH Screenings 1990 [facility]-Varicella Vaccines (1 of 2 - 13+ 2-dose series) 2003 [facility]- SDOH Screenings 01/26/2008 [facility]-Adult SDOH Screenings 01/26/2008 [facility]-DTaP,Tdap,and Td Vaccines (1 - Tdap) 2009 [facility]-Hepatitis A Vaccines (1 of 2 - Risk 2-dose series) 2009 [facility]-Pneumococcal Vaccine: Pediatrics (0 to 5 Years) and At-Risk Patients (6 to 49 Years) (1 of 2 - PCV) 2009 HPV Vaccines (1 - 3-dose SCDM series) 2017 [facility]-HPV/Cotest 01/26/2020 [facility]-Hepatitis B Vaccines (3 of 3 - 19+ 3-dose series) 02/17/2025 11/02/2024, 08/20/2024 [id number] Vaccine (1 - 2023- season) 2025 [facility]-Influenza Vaccine (#1) 2025 04/19/2010 [facility]-Depression Screening [...] Reactive Non Reactive 08/28/2023 12:23 PM EST [facility] Comment:Screening for HIV 1 & 2 antibodies, and P24 antigen is NONREACTIVE. No confirmatory testing is required. Blood Venous blood specimen / Unknown Venipuncture / Unknown 08/28/2023 11:39 AM EST 08/28/2023 11:45 AM EST us Jasen Blanco MD LAB BLOOD ORDERABLES Fin al Result [facility] [address] [place] [address] from Last 3 Months or Most Recently Relevant to Health Maintenance Insurance [id number] [id number] [employer] MEDICARE [id number] [id number] Care Teams Drywall Applicator Relationship Specialty Start Date End Date Yonatan Graves DO [address] [place] [address] [address] [place] [address] PCP - General 09/24/22 Adryan Bearden PA [address] [place] [address] Referring Physician Gastroenterology 09/24/22
--- OUTSIDE RECORDS SUMMARY | 2025-03-09 19:34 | XMS_ITS | Encounter Summary ---
Author Organization [facility] Address [address] [place] [address] Care Team Providers Care Staining Machine Operator Name Role Phone Yonatan Graves DO Primary Care Provider Farida Ortega CERAMIC MAKER DEMONSTRATOR Unavailable [phone] Source Comments This information has been disclosed [...] release of HIV test results or diagnoses. [id number] Encounter Details Date Type Department Care Team (Late st Contact Info) Description 09/25/2023 Social Work [facility] Liver Transplant at [address] [place] [phone] Zeny Bhakta, ENVIRONMENTAL SERVICES COORDINATOR, FULLING MACHINE OPERATOR Social History Tobacco Use Types Packs/Day Years [...] of this encounter Progress Notes * ASIM Selby, FULLING MACHINE OPERATOR - 09/25/2023 10:23 AM EDT TRANSPLANT PSYCHOSOCIAL ASSESSMENT Support Persons: Darien Wade (): [phone] Kee Llanes (father) Art Hernández (mother) Client's [...] and . She does not have any hinduism, ethnic, or personal objections to accepting blood [...] supportive of her. Support Plan: Patient's , dad, and friends will provide 24 hour post-transplant support and will be able to provide transportation. Patient's currently works full-time and will explore options for employment flexibility. Patient's father is retired and an OLT recipient. She was provided a documentdescribing what type of post-transplant support is needed. Psychiatric History: Patient has a history of depression and anxiety. She reports that she is prescribed Gabapentin (600, 3x/day) for tremors and anxiety and Remeron for sleep. She denies history of inpatient psychiatric admission, suicidal ideation and suicide attempts. PHQ-9 Scores: 09/25/2023 11:52 AM PHQ Total Score PHQ-9 Total Score 13 GAD7 Scores: 09/25/2023 11:52 AM YRQ4Mremc Score CHATO-7 Total Score 8 Reviewed results of questionnaires with patient. (PHQ-9 score: 13, CHATO-7 score: 8). Patient's PHQ-9score is indicative of moderate symptoms of depression at this time. Her CHATO-7 score is indicative of mild symptoms of anxiety at this time. Patient notes that she is working with the [facility] on dual-diagnosis treatment. SW discussed the availability [...] She started experimenting with alcohol as teenager. 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 Tolerance, increased use over time. ?? Withdrawal symptoms ?? Alcohol is often taken in larger amounts or over a longer period than was intended. ?? There is a persistent desire or unsuccessful efforts to cut down or control alcohol use. ?? Recurrent alcohol use resulting in a [...] and transitioned to IVDU fentanyl and heroin (7185-3030). In 2016- 2019, she engaged in MAT (Subxone) with Dr. Preston ([facility]). She reports that she has been prescribed [...] or exacerbated by substance. Treatment: 2023: Outpatient; [facility] (Dr. Guajardo) Brynn Pittman (counselor)- Since [...] completed some college. She is currently on Half-Way Disability through her employer ([employer]). She worked in [employer]. She was never in the . Her [...] discussed the patient's psychosocial evaluation with the coordinator of genetic services (Josie Cano). The patient participated in the interview and she has a good understanding of what she will need to do to be listed for liver transplant. Her care plan and my recommendations are listed below. She HAS psychosocial barriers at this time. - Patient to continue CD treatment and demonstrate 1-year of sobriety due to polysubstance abuse history - Resolved; patient completed CD treatment - Patient to be determined if transplant psychologist referral is indicated, predicated on dual-dx treatment through [facility] - Resolved; patient evaluated and cleared by transplant psychologist - Patient to determine [facility], [facility] or dual-listing decision - Resolved; patient would like to follow-up with [facility] for listing Recommendations: Patient has a history of polysubstance [...] and phone number for additional needs. ASIM Selby LSW [phone] TRANSPLANT PSYCH NOTEWRITER: [facility] Clinic Entry Point: [...] Noted Time PHQ-9 Depression Total Score: 13 04/2 024 11:52 AM EDT documented as of this encounter Care Teams Staining Machine Operator Relationship Specialty Start Date End Date Yonatan Graves DO [address] [place] [address] PCP - General 02/01/25 Farida Ortega, CERAMIC MAKER DEMONSTRATOR [address] [place] [address] Referring Physician Gastroenterology 09/02/23 documented as of this encounter
--- OUTSIDE RECORDS SUMMARY | 2025-03-09 19:34 | XMS_ITS | Encounter Summary ---
Author Organization [facility] Address [address] [place] [address] Care Team Providers Care Desolderer Name Role Phone Yonatan Graves DO Primary Care Provider Farida Ortega REAL ESTATE ATTORNEY Unavailable [phone] Source Comments This information has been disclosed [...] release of HIV test results or diagnoses. [id number] Health Encounter Details Date Type Department Care Team (Late st Contact Info) Description 03/09/2025 Orders Only [facility] Liver Transplant at [address] [place] [phone] Lashawn Lira RN Pre-transplant evaluation for chronic liver disease [...] documented as of this encounter Care Teams Desolderer Relationship Specialty Start Date End Date Yonatan Graves DO [address] [place] [address] PCP - General 02/01/25 Farida Ortega, REAL ESTATE ATTORNEY [address] [place] [phone] Referring Physician Gastroenterology 09/02/23 documented as of this encounter
--- OUTSIDE RECORDS SUMMARY | 2025-03-09 19:35 | XMS_ITS | Encounter Summary ---
Author Organization [facility] Address [address] [place] [address] Care Team Providers Care Cloth Printer Helper Name Role Phone Yonatan Graves DO Primary Care Provider Farida Ortega VP PRODUCT MANAGEMENT Unavailable [phone] Source Comments This information has been disclosed [...] release of HIV test results or diagnoses. [id number] Health Encounter Details Date Type Department Care Team (Late st Contact Info) Description 03/01/2025 Telephone [facility] Liver Transplant at [address] [place] [phone] Ginna Mcnair MA Social History Tobacco Use Types Packs/Day [...] as of this encounter Progress Notes * Ginna Mcnair MA - 03/01/2025 1:27 PM EDT Pt calling to discuss paperwork and appts that have been scheduled for her. Pt states she's a little confused about all of it and requests return call from CC KONSTANTIN Ware. documented in this encounter Plan of Treatment Not on file documented as of this encounter Visit Diagnoses Not on filedocumented in this encounter Additional Health Concerns Assessment Noted Time PHQ-9 Depression Total Score: 13 11/04/ 025 2:00 PM EDT documented as of this encounter Care Teams Cloth Printer Helper Relationship Specialty Start Date End Date Yonatan Graves DO [address] [place] [address] PCP - General 02/01/25 Farida Ortega, VP PRODUCT MANAGEMENT [address] [place] [address] Referring Physician Gastroenterology 09/02/23 documented as of this encounter
--- OUTSIDE RECORDS SUMMARY | 2025-03-09 19:35 | XMS_ITS | Encounter Summary ---
Author Organization [facility] Address [address] [place] [address] Care Team Providers Care Line Maintainer Section Name Role Phone Farida Ortega ZOO KEEPER Unavailable [phone] Source Comments This information has been disclosed [...] release of HIV test results or diagnoses. [id number] Health Encounter Details Date Type Department Care Team (Late st Contact Info) Description 01/13/2025 Orders Only [facility] Liver Transplant at [address] [address] Abdullahi Cano, KONSTANTIN Latent tuberculosis Social History Tobacco Use Types Packs/Day Years [...] of this encounter Visit Diagnoses Diagnosis Latent tuberculosis Nonspecific reaction to tuberculin skin test without active tuberculosis documented in this encounter Additional Health Concerns Assessment Noted Time PHQ-9 Depression Total Score: 13 025 2:00 PM EDT documented as of this encounter Care Teams Line Maintainer Section Relationship Specialty Start Date End Date Farida Ortega, ZOO KEEPER [address] [address] Referring Physician Gastroenterology 09/02/23 documented as of this encounter
--- OUTSIDE RECORDS SUMMARY | 2025-03-09 19:35 | XMS_ITS | Encounter Summary ---
Author Organization [facility] Address [address] [place] [address] Care Team Providers Care Emergency Medicine Physician Name Role Phone Yonatan Graves DO Primary Care Provider Farida Ortega MANAGER FREELANCE Unavailable [phone] Source Comments This information has been disclosed [...] release of HIV test results or diagnoses. [id number] Encounter Details Date Type Department Care Team (Late st Contact Info) Description 02/18/2025 Telephone [facility] Liver Transplant at [address] [place] [phone] Abdullahi Cano RN Social History Tobacco [...] Progress Notes * Abdullahi Cano RN - 02/18/2025 3:23 PM EDT Spoke to patient. She is getting ready to strip picker her medication and take ti to stay on schedule. Her spouse needs paperwork completed to help with support post OLT. documented in this encounter Plan of Treatment Not on file documented as of this encounter Visit Diagnoses Not on filedocumented in this encounter Additional Health Concerns Assessment Noted Time PHQ-9 Depression Total Score: 13 025 2:00 PM EDT documented as of this encounter Care Teams Emergency Medicine Physician Relationship Specialty Start Date End Date Yonatan Graves DO [address] [place] [address] PCP - General 02/01/25 Farida Ortega, HARLEEN [address] [place] [address] Referring Physician Gastroenterology 09/02/23 documented as of this encounter
--- OUTSIDE RECORDS SUMMARY | 2025-03-09 19:35 | XMS_ITS | Encounter Summary ---
Author Organization [facility] Address [address] [place] [address] Care Team Providers Care Signal Tower Operator Name Role Phone Farida Ortega SANDWICH MACHINE OPERATOR Unavailable [phone] Source Comments This information has been disclosed [...] release of HIV test results or diagnoses. [id number] Health Encounter Details Date Type Department Care Team (Late st Contact Info) Description 01/20/2025 Telephone [facility] Liver Transplant at [address] [address] Abdullahi Cano, KONSTANTIN Social History [...] Progress Notes * Abdullahi Cano RN - 01/20/2025 8:39 AM EDT Placed call to patient to see when she started her TB medications. No answer. Left a message requesting a call back. documented in this encounter Plan of Treatment Not on file documented as of this encounter Visit Diagnoses Not on filedocumented in this encounter Additional Health Concerns Assessment Noted Time PHQ-9 Depression Total Score: 13 025 2:00 PM EDT documented as of this encounter Care Teams Signal Tower Operator Relationship Specialty Start Date End Date Farida Ortega, SANDWICH MACHINE OPERATOR [id number] [place] [address] Referring Physician Gastroenterology 09/02/23 documented as of this encounter
--- OUTSIDE RECORDS SUMMARY | 2025-03-09 19:35 | XMS_ITS | Encounter Summary ---
Author Organization [facility] Address [address] [place] [address] Care Team Providers Care Inspector Pawnshop Detail Name Role Phone Yonatan Graves DO Primary Care Provider Farida Ortega PHOTOVOLTAIC FABRICATION TECHNICIAN Unavailable Source Comments This information has been [...] release of HIV test results or diagnoses. [id number] Health Encounter Details Date Type Department Care Team (Late st Contact Info) Description 03/08/2025 Telephone [facility] Liver Transplant at [address] [place] [phone] Ginna Mcnair MA Social History Tobacco [...] Progress Notes * Ginna Mcnair MA - 03/08/2025 8:27 AM EDT Pt states she is on the TB treatment and is experiencing a cough all the time . Pt reports that inhaler and breathing treatments are taking the edge off but not a significant improvement. Pt states she feels that the symptoms are increasing with each dose of the TB treatment she takes. Pt deniesfever and other symptoms. She would like to discuss this treatment with CC KONSTANTIN Ware at his earliest convenience. documented in this encounter Plan of Treatment Not on file documented as of this encounter Visit Diagnoses Not on filedocumented in this encounter Additional Health Concerns Assessment Noted Time PHQ-9 Depression Total Score: 13 11/04/ 025 2:00 PM EDT documented as of this encounter Care Teams Inspector Pawnshop Detail Relationship Specialty Start Date End Date Yonatan Graves DO [address] [place] [address] PCP - General 02/01/25 Farida Ortega NP [address] [place] [address] Referring Physician Gastroenterology 09/02/23 documented as of this encounter
--- OUTSIDE RECORDS SUMMARY | 2025-03-09 19:35 | XMS_ITS | Encounter Summary ---
Author Organization [facility] Address [address] [place] [address] Care Team Providers Care Tipple Engineer Name Role Phone Yonatan Graves DO Primary Care Provider Farida Ortega EDITING CLERK Unavailable [phone] Source Comments This information has been disclosed [...] release of HIV test results or diagnoses. [id number] Encounter Details Date Type Department Care Team (Late st Contact Info) Description 03/08/2025 Telephone [facility] Liver Transplant at [address] [place] [phone] Abdullahi Cano RN Social History Tobacco [...] Progress Notes * Abdullahi Cano RN - 03/08/2025 2:40 PM EDT Spoke to patient. She had her labs drawn today. Will request records be faxed over once resulted. Patient saw a dentist last week with no issues. Will e mail dental clearance form to patient. documented in this encounter Plan of Treatment Not on file documented as of this encounter Visit Diagnoses Not on filedocumented in this encounter Additional Health Concerns Assessment Noted Time PHQ-9 Depression Total Score: 13 025 2:00 PM EDT documented as of this encounter Care Teams Tipple Engineer Relationship Specialty Start Date End Date Yonatan Graves DO [address] [place] [address] PCP - General 02/01/25 Farida Ortega, EDITING CLERK [address] [place] [address] Referring Physician Gastroenterology 09/02/23 documented as of this encounter
--- OUTSIDE RECORDS SUMMARY | 2025-03-09 19:35 | XMS_ITS | Encounter Summary ---
Author Organization [facility] Address [address] [place] [address] Care Team Providers Care Toby Maker Name Role Phone Yonatan Graves DO Primary Care Provider Farida Ortega ACTIVITIES CONCIERGE Unavailable [phone] Source Comments This information has been disclosed [...] release of HIV test results or diagnoses. [id number] Health Encounter Details Date Type Department Care Team (Late st Contact Info) Description 03/09/2025 Telephone [facility] Liver Transplant at [address] [place] [phone] Tresa Reilly MA Social History Tobacco [...] Progress Notes * Tresa Reilly MA - 03/09/2025 2:08 PM EDT Called lab back to request the results be faxed back because the renal function panel was missing. * Tresa Reilyl MA - 03/09/2025 12:11 PM EDT Called [facility] to request the current labs from 03/08/2025 be faxed to liver transplant office. documented in this encounter Plan of Treatment Not on file documented as of this encounter Visit Diagnoses Not on filedocumented in this encounter Additional Health Concerns Assessment Noted Time PHQ-9 Depression Total Score: 13 025 2:00 PM EDT documented as of this encounter Care Teams Toby Maker Relationship Specialty Start Date End Date Yonatan Graves DO [address] [place] [address] PCP - General 02/01/25 Farida Ortega NP [address] [place] [address] Referring Physician Gastroenterology 09/02/23 documented as of this encounter
--- OUTSIDE RECORDS SUMMARY | 2025-03-09 19:35 | XMS_ITS | Encounter Summary ---
Author Organization [facility] Address [address] [place] [address] Care Team Providers Care Rough Patcher Name Role Phone Farida Ortega COMMUTATOR TESTER Unavailable [phone] Source Comments This information has been disclosed [...] release of HIV test results or diagnoses. [id number] Health Encounter Details Date Type Department Care Team (Late st Contact Info) Description 01/12/2025 Telephone [facility] Liver Transplant at [address] [phone] Tran Storm MA Social History Tobacco Use Types Packs/Day [...] as of this encounter Progress Notes * Tran Storm MA - 01/12/2025 4:31 PM EDT Pt called to notify CC KONSTANTIN Ware that her priftin was cancelled by the pharmacy, and needs it re-ordered. documented in this encounter Plan of Treatment Not on file documented as of this encounter Visit Diagnoses Not on filedocumented in this encounter Additional Health Concerns Assessment Noted Time PHQ-9 Depression Total Score: 13 11/04/ 025 2:00 PM EDT documented as of this encounter Care Teams Rough Patcher Relationship Specialty Start Date End Date Farida Ortega, COMMUTATOR TESTER [address] [place] [address] Referring Physician Gastroenterology 09/02/23 documented as of this encounter
--- OUTSIDE RECORDS SUMMARY | 2025-03-09 19:35 | XMS_ITS | Encounter Summary ---
Author Organization [facility] Address [address] [place] [address] Care Team Providers Care Structural Rigger Name Role Phone Kierra Guajardo MD Primary Care Provide r Reason for Visit * Reason Onset Date Comments Med Refill 02/11/2025 Encounter Details Date Type Department Care Team (Late st Contact Info) Description 02/11/2025 Refill [facility] OBGYN [address] [place] [address] Pao Hanley, ARCHERY EQUIPMENT REPAIRER [address] [facility] [address] [place] [address] Social History Tobacco Use Types Packs/Day Years Used Date Smoking Tobacco: Former Cigarettes Smokeless Tobacco: Never Alcohol Use Standard Drinks/Week Comments Not Currently 0 (1 standard drink = 0.6 oz pure alcohol) 4-6 wine coolers daily for several years [facility] Utilities Answer Date Recorded In the past 12 months has [employer], [employer], oil, or water [employer] threatened to shut off services in your [...] medical care, and heating? Patient declined 08/05/2023 [facility] - Occupational Stress Questionnaire Answer Date Recorded [...] GED or equivalent No 08/05/2023 Preferred Language Spanish 08/05/2023 PHQ-2 Answer Date Recorded Retired PHQ-9: [...] documented as of this encounter Care Teams Structural Rigger Relationship Specialty Start Date End Date Kierra Guajardo MD [address] [place] [address] PCP - General Internal Medicine 10/23/23 documented as of this encounter
--- OUTSIDE RECORDS SUMMARY | 2025-03-09 19:35 | XMS_ITS | Encounter Summary ---
Author Organization [facility] Address [address] [place] [address] Care Team Providers Care Brick Grader Name Role Phone Farida Ortega BANANA CARRIER Unavailable [phone] Source Comments This information has been disclosed [...] release of HIV test results or diagnoses. [id number] Health Encounter Details Date Type Department Care Team (Late st Contact Info) Description 01/14/2025 Orders Only [facility] Liver Transplant at [address] [address] Abdullahi Cano, RN Alcoholic cirrhosis of liver [...] documented as of this encounter Care Teams Brick Grader Relationship Specialty Start Date End Date Farida Ortega, BANANA CARRIER [id number] [place] [address] Referring Physician Gastroenterology 09/02/23 documented as of this encounter
--- OUTSIDE RECORDS SUMMARY | 2025-03-09 19:35 | XMS_ITS | Encounter Summary ---
Author Organization [facility] Address [address] [place] [address] Care Team Providers Care Milk Pickup Driver Name Role Phone Farida Ortega STRAIGHT SLICING MACHINE OPERATOR Unavailable [phone] Source Comments This information has been disclosed [...] release of HIV test results or diagnoses. [id number] Health Encounter Details Date Type Department Care Team (Late st Contact Info) Description 01/31/2025 Refill [facility] Liver Transplant at [facility] [address] [facility] [address] [place] [address] Mario Ramirez MD [address] [facility] [place] [phone] Nausea (Primary Dx) Social History Tobacco Use Types [...] Progress Notes * Tresa Reilly MA - 01/31/2025 11:09 AM EDT Received a fax prescription requesting a drug change request. It looks like the request is for Dr. Subhash Connolly; however Dr. Ramirez prescribed a lower dosage of the same medication. documented in this encounter Plan of Treatment Not on file documented as of this encounter Visit Diagnoses Diagnosis Nausea- Primary Nausea alone documented in this encounter Additional Health Concerns Assessment Noted Time PHQ-9 Depression Total Score: 13 025 2:00 PM EDT documented as of this encounter Care Teams Milk Pickup Driver Relationship Specialty Start Date End Date Farida Ortega, STRAIGHT SLICING MACHINE OPERATOR [id number] [place] [address] Referring Physician Gastroenterology 09/02/23 documented as of this encounter
--- OUTSIDE RECORDS SUMMARY | 2025-03-09 19:35 | XMS_ITS | Encounter Summary ---
Author Organization [facility] Address [address] [place] [address] Care Team Providers Care Rehabilitation Aide/Scheduler Name Role Phone Yonatan Graves DO Primary Care Provider Farida Ortega BOOK SORTER Unavailable [phone] Source Comments This information has been disclosed [...] release of HIV test results or diagnoses. [id number] Health Encounter Details Date Type Department Care Team (Late st Contact Info) Description 03/08/2025 Telephone [facility] Liver Transplant at [address] [place] [phone] Tresa Reilly MA Social History Tobacco [...] Progress Notes * Tresa Reilly MA - 03/08/2025 9:42 AM EDT Called [facility] scheduling and got patient scheduled for a Dexa scan the same day as her appointments for liver transplant evaluation. Patient is scheduled in [place] before her appointment in [place]. documented in this encounter Plan of Treatment Not on file documented as of this encounter Visit Diagnoses Not on filedocumented in this encounter Additional Health Concerns Assessment Noted Time PHQ-9 Depression Total Score: 13 025 2:00 PM EDT documented as of this encounter Care Teams Rehabilitation Aide/Scheduler Relationship Specialty Start Date End Date Yonatan Graves DO [address] [place] [address] PCP - General 02/01/25 Farida Ortega, HARLEEN [address] [place] [address] Referring Physician Gastroenterology 09/02/23 documented as of this encounter
--- OUTSIDE RECORDS SUMMARY | 2025-03-09 19:35 | XMS_ITS | Encounter Summary ---
Author Organization [facility] Address [address] [place] [address] Care Team Providers Care Gandy Dancer Name Role Phone Yonatan Graves DO Primary Care Provider Farida Ortega MANAGER LEAN Unavailable [phone] Source Comments This information has been disclosed [...] release of HIV test results or diagnoses. [id number] Health Encounter Details Date Type Department Care Team (Late st Contact Info) Description 03/01/2025 Telephone [facility] Liver Transplant at [address] [place] [phone] Abdullahi Cano RN Social History Tobacco [...] Progress Notes * Abdullahi Cano RN - 03/02/2025 9:42 AM EDT Spoke with patient and reviewed upcoming appointment dates. Reviewed tentative surgery date and patient agrees to the plan. Patient states she has lost 15 lbs since she has started this medication. She is due for labs, so will e mail to patient to get drawn. documented in this encounter Plan of Treatment Not on file documented as of this encounter Visit Diagnoses Not on filedocumented in this encounter Additional Health Concerns Assessment Noted Time PHQ-9 Depression Total Score: 13 025 2:00 PM EDT documented as of this encounter Care Teams Gandy Dancer Relationship Specialty Start Date End Date Yonatan Graves DO [address] [place] [address] PCP - General 02/01/25 Farida Ortega, MANAGER LEAN [address] [place] [address] Referring Physician Gastroenterology 09/02/23 documented as of this encounter
--- OUTSIDE RECORDS SUMMARY | 2025-03-09 19:35 | XMS_ITS | Encounter Summary ---
Author Organization [facility] Address [address] [place] [address] Care Team Providers Care Delivery Manager Name Role Phone Farida Ortega SAMPLE ROOM SUPERVISOR Unavailable [phone] Source Comments This information has been disclosed [...] release of HIV test results or diagnoses. [id number] Health Encounter Details Date Type Department Care Team (Late st Contact Info) Description 01/13/2025 Telephone Liver Transplant at [address] [phone] Abdullhai Cano, KONSTANTIN Social History Tobacco Use Types [...] Progress Notes * Abdullahi Cano RN - 01/13/2025 8:49 AM EDT Placed call to patient to review a cancelled TB medication and see where we can send it. No answer.Left a voicemail requesting a call back. documented in this encounter Plan of Treatment Not on file documented as of this encounter Visit Diagnoses Not on filedocumented in this encounter Additional Health Concerns Assessment Noted Time PHQ-9 Depression Total Score: 13 11/04/ 025 2:00 PM EDT documented as of this encounter Care Teams Delivery Manager Relationship Specialty Start Date End Date Farida Ortega, SAMPLE ROOM SUPERVISOR [address] [phone] Referring Physician Gastroenterology 09/02/23 documented as of this encounter
--- OUTSIDE RECORDS SUMMARY | 2025-03-09 19:35 | XMS_ITS | Encounter Summary ---
Author Organization [facility] Address [address] [place] [address] Care Team Providers Care Log Cutter Name Role Phone Yonatan Graves DO Primary Care Provider Farida Ortega INSTRUCTIONAL SUPPORT SERVICES DIRECTOR Unavailable [phone] Source Comments This information has been disclosed [...] release of HIV test results or diagnoses. [id number] Health Encounter Details Date Type Department Care Team (Late st Contact Info) Description 03/02/2025 Orders Only [facility] Liver Transplant at [address] [place] [phone] Abdullahi Cano RN Pre-transplant evaluation for chronic [...] Type Priority Associated Diagnoses Orde r Schedule Hepatic Function Panel Lab Routine Pre-transplant evaluation for chronic liver disease 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) 1 Occurrences starting 03/02/2025 until 09/14/2025 Renal Function Panel w/EGFR Lab Routine Pre-transplant evaluation for chronic liver disease 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) 1 Occurrences starting 03/02/2025 until 09/14/2025 Protime-INR Lab Routine Pre-transplant evaluation for chronic liver disease 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) 1 Occurrences starting 03/02/2025 until 09/14/2025 CBC Lab Routine Pre-transplant evaluation for chronic liver disease 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) 1 Occurrences starting 03/02/2025 until 09/14/2025 documented as of this encounter Visit Diagnoses Diagnosis Pre-transplant evaluation for chronic liver disease- Primary 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) documented in this encounter Additional Health Concerns Assessment Noted Time PHQ-9 Depression Total Score: 13 025 2:00 PM EDT documented as of this encounter Care Teams Log Cutter Relationship Specialty Start Date End Date Yonatan Graves DO [address] [place] [address] PCP - General 02/01/25 Farida Ortega NP [address] [place] [phone] Referring Physician Gastroenterology 09/02/23 documented as of this encounter
--- OUTSIDE RECORDS SUMMARY | 2025-03-09 19:35 | XMS_ITS | Encounter Summary ---
Author Organization [facility] Address [address] [place] [address] Care Team Providers Care Airplane Inspector Name Role Phone Farida Ortega AIRPLANE WOODWORKER Unavailable Source Comments This information has been [...] release of HIV test results or diagnoses. [id number] Reason for Visit * Reason Comments After Hours Call Encounter Details Date Type Department Care Team (Late st Contact Info) Description 01/28/[address] [facility] PATIENT SERVICES [address] [place] [address] Unknown, Attending Provider After Hours Call Social History Tobacco Use Types Packs/Day Years [...] encounter Miscellaneous Notes * Telephone Encounter - Otis Chavarria MD - 01/28/2025 8:24 PM EDT Carvedilol refill sent. * Telephone Encounter - Cintia Kent - 01/28/2025 7:47 PM EDT Specialty: GASTRO Patient Name: Mindy Wade Patient Date of : 1990 Relationship of Caller to Patient and Callback: SELF ~ [phone] Patient of: DR TOLEDO Nature of Call: PATIENT MUST TAKE carvediloL (COREG) 3.125 MG tablet AND SHE IS OUT OF IT AND THE LABEL SAID YOU SHOULD NOT SKIP A DOSE [facility] [phone] Parts Specialist Provider Contacted: DR. CHAVARRIA Time and Method of Contact: 7:48 PM - PAGED Advise Caller: If provider does not call back within 30 minutes, please call us back. ROUTE TELEPHONE NOTE - Follow Qgenda and/or Route Directly to Provider. COPY this note into [email or web address] Teams chat. documented in this encounter Plan of Treatment Not on file documented as of this encounter Visit Diagnoses Not on filedocumented in this encounter Additional Health Concerns Assessment Noted Time PHQ-9 Depression Total Score: 13 11/04/ 025 2:00 PM EDT documented as of this encounter Care Teams Airplane Inspector Relationship Specialty Start Date End Date Farida Ortega, AIRPLANE WOODWORKER [address] [place] [address] Referring Physician Gastroenterology 09/02/23 documented as of this encounter
--- OUTSIDE RECORDS SUMMARY | 2025-03-09 19:35 | XMS_ITS | Encounter Summary ---
Author Organization [facility] Address [address] [place] [address] Care Team Providers Care Software Engineering Manager Name Role Phone Yonatan Graves DO Primary Care Provider Farida Ortega PROFESSIONAL CASTER Unavailable [phone] Source Comments This information has been disclosed [...] release of HIV test results or diagnoses. [id number] Encounter Details Date Type Department Care Team (Late st Contact Info) Description 02/04/2025 Telephone [facility] Liver Transplant at [address] [place] [phone] Abdullahi Cano RN Social History Tobacco [...] Telephone Encounter - Abdullahi Cano RN - 02/04/2025 1:39 PM EDT Spoke to patient and reviewed the recent testing. Patient has been taking her TB medication. Only complaints are nausea and loss of appetite. Patient to be assessed on Friday in clinic. documented in this encounter Plan of Treatment Not on file documented as of this encounter Visit Diagnoses Not on filedocumented in this encounter Additional Health Concerns Assessment Noted Time PHQ-9 Depression Total Score: 13 025 2:00 PM EDT documented as of this encounter Care Teams Software Engineering Manager Relationship Specialty Start Date End Date Yonatan Graves DO [address] [place] [address] PCP - General 02/01/25 Farida Ortega, PROFESSIONAL CASTER [address] [place] [address] Referring Physician Gastroenterology 09/02/23 documented as of this encounter
--- OUTSIDE RECORDS SUMMARY | 2025-03-09 19:35 | XMS_ITS | Encounter Summary ---
Author Organization Address [address] [place] [address] Care Team Providers Care Web Development Intern Name Role Phone Yonatan Graves DO Primary Care Provider Farida Ortega PERSONAL FINANCIAL REPRESENTATIVE Unavailable [phone] Source Comments This information has been disclosed [...] release of HIV test results or diagnoses. [id number] Encounter Details Date Type Department Care Team (Late st Contact Info) Description 03/09/2025 Chart Note [facility] Liver Transplant at [address] [place] [phone] Tresa Reilly MA Lab results entered from [facility] on 03/08/25. Social History Tobacco Use Types Packs/Day Years [...] Notes * Tresa Reilly MA - 03/09/2025 2:20 PM EDT Lab results entered from [facility] on 03/08/25. documented in this encounter Plan of Treatment Not on file documented as of this encounter Procedures Procedure Name Priority Date/Time Associated Diagnosis Comments HEPATIC FUNCTION PANEL Routine 03/08/2025 1:13 PM EDT PROTIME-INR Routine 03/08/2025 1:13 PM EDT CBC AND DIFFERENTIAL Routine 03/08/2025 1:13 PM EDT RENAL FUNCTION PANEL W/O EGFR Routine 03/08/2025 1:13 PM EDT documented in this encounter Results * (ABNORMAL) Renal Function Panel w/o EGFR (03/08/2025 1:13 PM EDT) Glucose 97 BUN 8 CO2 25.4(A) 13 - 22 mmol/L Creatinine 0.6 Potassium 3.3 Sodium 140 Chloride 108 Phosphorus 3.0 2.5 - 4.9 mg/dL Calcium 8.3 EGFR 120 mg/dL Albumin 3.1(A) 3.5 - 5.0 g/dL Blood us Historical Provider LAB BLOOD ORDERABLES Rosa l Result * (ABNORMAL) Protime-INR (03/08/2025 1:13 PM EDT) INR 1.2(A) 0.9 - 1.1 Protime 12.6 Plasma Result [facility] Provider MD LAB BLOOD ORDERABLES Rosa l Result * (ABNORMAL) CBC and differential (03/08/2025 1:13 PM EDT) Hemoglobin 11.4(A) 12.0 - 16.0 g/dL Hematocrit 34.6(A) 36 - 46 % RDW 14.1 11.5 - 14.5 % MCH 31.9 26.0 - 34.0 pg MCHC 32.9 30 - 37 g/dL MCV 96.9 82.0 - 108.0 fL Platelets 76 K/ L RBC 3.6(A) 4.00 - 5.20 10^6/ L WBC 3.1 10^3/mL Blood Result [facility] Provider MD LAB BLOOD ORDERABLES Rosa l Result * Hepatic Function Panel (03/08/2025 1:13 PM EDT) Pathologist [facility] Bilirubin, Direct 0.8 Bilirubin, Indirect 1.10 Alkaline Phosphatase 139 ALT 39 AST 43 Total Bilirubin 1.90 Total Protein 6.5 Plasma Result [facility] Provider MD LAB BLOOD ORDERABLES Rosa l Result documented in this encounter Visit Diagnoses Not on filedocumented in this encounter Additional Health Concerns Assessment Noted Time PHQ-9 Depression Total Score: 13 025 2:00 PM EDT documented as of this encounter Care Teams Web Development Intern Relationship Specialty Start Date End Date Yonatan Graves DO [address] [place] [address] PCP - General 02/01/25 Farida Ortega, PERSONAL FINANCIAL REPRESENTATIVE [address] [place] [address] Referring Physician Gastroenterology 09/02/23 documented as of this encounter
--- OUTSIDE RECORDS SUMMARY | 2025-03-09 19:35 | XMS_ITS | Clinical Summary ---
Author Organization [facility] Address [address] [id number] Care Team Providers Care Supervisor Composing Room Name Role Phone Kierra Guajardo MD Primary Care Provide r Allergies Active Allergy Reactions Criticality Noted Date Comments Morphine Other (See Comments),Rash Low 12/08/2017 Penicillins Rash,Unknown (See Comments) Low 015 Medications * This document contains information received from the source organization and may not represent a complete record from that organization. furosemide (LASIX) 40 MG tabletIndicati ons:Hepatic Cirrhosis Take 1 tablet by mouth daily. Indications: Hardening of the Liver 30 tablet 4 10:27 AM EST 08/06/19 24 Active spironolactone (ALDACTONE) 50 MG tabletIndicati ons:Hepatic Cirrhosis Take 1 tablet by mouth 2 times a day. Indications: Hardening of the Liver 60 tablet 4 10:27 AM EST 08/05/19 24 Active gabapentin (NEURONTIN) 800 MG tablet Take 1 tablet by mouth 3 (Three) Times a Day. 10/22/19 24 Active fluconazole (DIFLUCAN) 150 MG tabletIndicati ons:Yeast infection Take 1 tablet by mouth As Needed (yeast). Take one tablet now and repeat in 3 days 2 tablet 1 02/12/20 25 Active fluconazole (DIFLUCAN) 150 MG tablet Take 1 tablet by mouth As Needed (yeast). Take one tablet now and repeat in 3 days 2 tablet 01/27/20 24 025 Discontinued(Re order) fluconazole (DIFLUCAN) 150 MG tabletIndicati ons:Yeast infection Take 1 tablet by mouth As Needed (yeast). Take one tablet now and repeat in 3 days 2 tablet 02/12/20 25 025 Discontinued Active Problems Problem Noted Date Diagnosed Date Alcohol use disorder, severe, dependence 024 Liver disease 08/05/2023 Hepatitis C 08/05/2023 Hyponatremia 08/05/2023 Chemical dependency 08/01/2023 Encounters Date Type Department Care Team Description 02/11/[address] [facility] [address] [place] [address] Pao Costa APRN Yeast infection (Primary Dx) 02/11/[address] [facility] [address] [place] [address] Pao Costa APRN from Last 3 Months Family History Medical [...] 4-6 wine coolers daily for several years [facility] Utilities Answer Date Recorded In the past 12 months has [employer], gas, oil, or water Shoulder Options threatened to shut off services in your [...] medical care, and heating? Patient declined 08/05/2023 [facility] of Occupat ional Health - Occupational Stress [...] GED or equivalent No 08/05/2023 Preferred Language Azerbaijani 08/05/2023 PHQ-2 Answer Date Recorded Retired PHQ-9: [...] Tdap) 2009 ANNUAL PHYSICAL 11/11/2023 INFLUENZA VACCINE 01/21/2025 04/19/2010 Hepatitis B (3 of 3 - 19+ 3- dose series) 02/17/2025 11/02/2024, 08/20/2024 Annual Gynecologic Pelvic an d Breast Exam 11/26/2025 11/25/2024 PAP SMEAR 11/26/2027 11/25/2024, 11/11/2023 HEPATITIS C SCREENING Completed 09/08/2023 , 09/01/2023, 09/01/2023, Additional history exists Procedures Procedure Name Priority Date/Time Associated Diagnosis Comments LIQUID-BASED PAP SMEAR WITH HPV GENOTYPING IF ASCUS, [facility] ([facility]) Routine 11/25/2024 2:03 PM EDT Women's annual routine gynecological examination HEPATITIS PANEL, ACUTE Routine 08/02/2023 4:57 AM EST from Last 3 Months or Most Recently Relevant to Health Maintenance Results * LIQUID-BASED PAP SMEAR WITH HPV GENOTYPING IF ASCUS ([facility],MAD) (11/25/2024 2:03 PM EDT) Reference Lab Report [facility] [address] [place] [address] or [phone] Cristóbal Calvo M.D., Asphalt Spreader PATIENT NAME LABORATORY NO. TATIANA WHEATLEY [id number] AGE SEX SSN CLIENT REF # [facility] [address] 1990 F [id number] [facility] LOU DEJESUS REQUESTING Leslie [place]END[place] [address] PAO COSTA DATE COLLECTED DATE RECEIVED DATE REPORTED 11/25/2024 11/25/2024 11/26/2024 ThinPrep Pap with [facility] DIAGNOSIS: Negative for intraepithelial lesion or malignancy Multiple factors can influence accuracy of Pap tests; therefore, screening at regular intervals is necessary for early cancer detection. COMMENT: Benign cellular changes associated with inflammation are present. SPECIMEN ADEQUACY: SATISFACTORY FOR EVALUATION Transformation zone is absent or insufficient. SOURCE OF SPECIMEN: CERVICAL SLIDES: 1 CLINICAL HISTORY: Women's annual routine gynecological examination FUSING MACHINE FEEDER: CARRIE MORENO (ASCP) CPT CODES: 02106 11/26/2024 9:52 AM EDT [facility] ThinPrep Vial Cervix uteri structure / Unknown Collection / Unknown 11/25/2024 2:03 PM EDT 11/25/2024 2:03 PM EDT Pao Costa TECHNOLOGY SERVICES MANAGER PATHOLOGY/CYTOLOGY ORDERA BLES Final Result [facility]
[address] [place] [address], [place] [phone] * (ABNORMAL) Hepatitis Panel, Acute (08/02/2023 4:57 AM EST) Hepatitis B Surface Ag Non-Reacti ve Non-Reacti ve 08/02/2023 6:38 AM EST [facility] Hep A IgM Non-Reacti ve Non-Reacti ve 08/02/2023 6:38 AM EST [facility] Hep B C IgM Non-Reacti ve Non-Reacti ve 08/02/2023 6:38 AM EST [facility] Hepatitis C Ab Reactive(A ) Non-Reacti ve 08/02/2023 6:38 AM EST [facility] Blood Venipuncture / Unknown 08/02/2023 4:57 AM EST 08/02/2023 5:15 AM EST [facility] - 08/02/2023 6:38 AM EST Results may be falsely decreased if patient taking Biotin. us Jasmin Crooks MD LAB BLOOD ORDERABLES Final Result [facility]
[address] [place] [address], [phone] from Last 3 Months or Most Recently Relevant to Health Maintenance Insurance [facility] Advance Directives * CPR (Attempt to Resuscitate) (Latest Code Status on File) Date Activated Date Inactivated Comments 08/01/2023 11:18 PM 08/05/2023 4:05 PM Question Answer Comments Code Status (Patient has no pulse and is not breathing): CPR (Attempt to Resuscitate) Medical Interventions (Patie nt has pulse or is breathing): Full Support Care Teams Supervisor Composing Room Relationship Specialty Start Date End Date Kierra Guajardo MD [address] [place] [address] PCP - General Internal Medicine 10/23/23
--- OUTSIDE RECORDS SUMMARY | 2025-03-09 19:35 | XMS_ITS | Encounter Summary ---
Author Organization [facility] Address [address] [place] [address] Care Team Providers Care Mobile Unit Assistant Name Role Phone Farida Ortega PAINT SUPERVISOR Unavailable [phone] Source Comments This information has been disclosed [...] release of HIV test results or diagnoses. [id number] Health Encounter Details Date Type Department Care Team (Late st Contact Info) Description 01/28/2025 Telephone [facility] Liver Transplant at [address] [address] Abdullahi Cano, KONSTANTIN Social History [...] Progress Notes * Abdullahi Cano RN - 01/28/2025 10:07 AM EDT Placed call to patient. She started medication on 01/21. No concerns, other than light nausea which is corrected with Zofran. She will take her second dose today. Patient due into clinic on 02/07. Will follow up after testing is read next week. documented in this encounter Plan of Treatment Not on file documented as of this encounter Visit Diagnoses Not on filedocumented in this encounter Additional Health Concerns Assessment Noted Time PHQ-9 Depression Total Score: 13 025 2:00 PM EDT documented as of this encounter Care Teams Mobile Unit Assistant Relationship Specialty Start Date End Date Farida Ortega, PAINT SUPERVISOR [address] [address] Referring Physician Gastroenterology 09/02/23 documented as of this encounter
--- OUTSIDE RECORDS SUMMARY | 2025-03-09 19:35 | XMS_ITS | Encounter Summary ---
Author Organization [facility] Address [address] [place] [address] Care Team Providers Care Motor Vehicle Emissions Inspector Name Role Phone Farida Ortega CONVENTIONAL MORTGAGE UNDERWRITER Unavailable [phone] Source Comments This information has been disclosed [...] release of HIV test results or diagnoses. [id number] Health Encounter Details Date Type Department Care Team (Late st Contact Info) Description 01/20/[address] [facility] Liver Transplant at [address] [address] Abdullahi Cano, KONSTANTIN Social History [...] Notes * Abdullahi Cano RN - 01/20/2025 9:53 AM EDT Spoke with patient. She hasn't started her TB treatment yet. Medication cost was high and pharmacy mentioned other drugs are available at a cheaper cost. Advised patient that she needs these medications as prescribed. 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 documented in this encounter Plan of Treatment Not on file documented as of this encounter Visit Diagnoses Not on filedocumented in this encounter Additional Health Concerns Assessment Noted Time PHQ-9 Depression Total Score: 13 025 2:00 PM EDT documented as of this encounter Care Teams Motor Vehicle Emissions Inspector Relationship Specialty Start Date End Date Farida Ortega, CONVENTIONAL MORTGAGE UNDERWRITER [address] [address] Referring Physician Gastroenterology 09/02/23 documented as of this encounter
--- OUTSIDE RECORDS SUMMARY | 2025-03-09 19:35 | XMS_ITS | Encounter Summary ---
Author Organization [facility] Address [address] [place] [address] Care Team Providers Care Regulatory Compliance Officer Name Role Phone Farida Ortega DIRECTOR OF PROMOTIONS Unavailable [phone] Source Comments This information has been disclosed [...] release of HIV test results or diagnoses. [id number] Health Encounter Details Date Type Department Care Team (Late st Contact Info) Description 01/14/2025 Telephone [facility] Liver Transplant at [address] [address] Abdullahi Cano, KONSTANTIN Social History [...] Progress Notes * Abdullahi Cano RN - 01/14/2025 3:27 PM EDT Spoke with patient. She is on her way to pick up worker her last medication., She understands these are weekly medications and she knows how many to take. - test negative - baseline LFTs performed Ok to proceed with medication. Will follow up next week and will get labs in 1 month. documented in this encounter Plan of Treatment Not on file documented as of this encounter Visit Diagnoses Not on filedocumented in this encounter Additional Health Concerns Assessment Noted Time PHQ-9 Depression Total Score: 13 025 2:00 PM EDT documented as of this encounter Care Teams Regulatory Compliance Officer Relationship Specialty Start Date End Date Farida Ortega, DIRECTOR OF PROMOTIONS [address] [address] Referring Physician Gastroenterology 09/02/23 documented as of this encounter
--- OUTSIDE RECORDS SUMMARY | 2025-03-09 19:35 | XMS_ITS | Encounter Summary ---
Author Organization [facility] Address [address] [place] [address] Care Team Providers Care Manager Of School Name Role Phone Farida Ortega ASSISTANT PROFESSOR OF COMMUNICATION Unavailable [phone] Source Comments This information has been disclosed [...] release of HIV test results or diagnoses. [id number] Reason for Visit * Reason Comments After Hours Call Encounter Details Date Type Department Care Team (Late st Contact Info) Description 01/28/2025 Telephone [facility] PATIENT SERVICES [address] [place] [address] Unknown, Attending Provider After Hours [...] encounter Miscellaneous Notes * Telephone Encounter - Christiane Barker - 01/28/2025 6:[address] rodriguez cannot fill prescription due to pt not having a transplant. * Telephone Encounter - Tracy Farrar RN - 01/28/2025 6:56 PM EDT Patient has not been transplanted. Advised shotweld operator this call should go to patient's prescribing provider. * Telephone Encounter - Lida Catalan - 01/28/2025 6:53 PM EDT COMPLETE ::: [facility] WILL CALL IN MEDICATION TO REQUESTED PHARMACY ~ 6:51 PM * Telephone Encounter - Lida Catalan - 01/28/2025 6:37 PM EDT Specialty: LIVER TRANS Patient Name: Mindy Wade Patient Date of : 1990 Relationship of Caller to Patient and Callback: SELF ~ [phone] Patient of: DR MANRIQUEZ Nature of Call: PATIENT MUST TAKE carvediloL (COREG) 3.125 MG tablet AND SHE IS OUT OF IT AND THE LABEL SAID YOU SHOULD NOT SKIP A DOSE [facility] [phone] Film Maker Provider Contacted: TRACY FARRAR RN Time and Method of Contact: 6:47 PM ~ CELL Advise Caller: If provider does not call back within 30 minutes, please call us back. ROUTE TELEPHONE NOTE - Follow Qgenda and/or Route Directly to Provider. COPY this note into [facility] Teams chat. documented in this encounter Plan of Treatment Not on file documented as of this encounter Visit Diagnoses Not on filedocumented in this encounter Additional Health Concerns Assessment Noted Time PHQ-9 Depression Total Score: 13 025 2:00 PM EDT documented as of this encounter Care Teams Manager Of School Relationship Specialty Start Date End Date Farida Ortega, ASSISTANT PROFESSOR OF COMMUNICATION [address] [address] Referring Physician Gastroenterology 09/02/23 documented as of this encounter
--- OUTSIDE RECORDS SUMMARY | 2025-03-09 19:35 | XMS_ITS | Encounter Summary ---
Author Organization [facility] Address [address] [place] [address] Care Team Providers Care Movie Writer Name Role Phone Yonatan Graves Primary Care Provider Farida Ortega FILM CRITIC Unavailable [phone] Source Comments This information has been disclosed [...] release of HIV test results or diagnoses. [id number] Health Encounter Details Date Type Department Care Team (Late st Contact Info) Description 03/09/2025 Chart Note [facility] Kidney Transplant at [address] [place] [address] Niya Tripp Faxed Clinical for Listing/Txp Auth Social History Tobacco Use Types Packs/Day Years [...] encounter Progress Notes * Niya Tripp - 03/09/2025 10:04 AM EDT Faxed Clinical for Listing/Txp Auth Organ: Liver Listed Date: TBD Ins: [employer] Mdcr Wet Chemistry Analyst: Alix documented in this encounter Plan of Treatment Not on file documented as of this encounter Visit Diagnoses Not on filedocumented in this encounter Additional Health Concerns Assessment Noted Time PHQ-9 Depression Total Score: 13 025 2:00 PM EDT documented as of this encounter Care Teams Movie Writer Relationship Specialty Start Date End Date Yonatan Graves DO [address] [place] [address] PCP - General 02/01/25 Farida Ortega, FILM CRITIC [address] [place] [address] Referring Physician Gastroenterology 09/02/23 documented as of this encounter
--- OUTSIDE RECORDS SUMMARY | 2025-03-09 19:35 | XMS_ITS | Encounter Summary ---
Author Organization [facility] Address [address] [place] [address] Care Team Providers Care Certified Medication Technician Name Role Phone Yonatan Graves DO Primary Care Provider Farida Ortega ELECTRONIC COMPONENT PROCESSOR Unavailable [phone] Source Comments This information has been disclosed [...] release of HIV test results or diagnoses. [id number] Encounter Details Date Type Department Care Team (Late st Contact Info) Description 03/08/2025 Chart Note [facility] Liver Transplant at [address] [place] [address] Abdullahi Cano RN [place] tab updated. Social History Tobacco Use Types Packs/Day Years [...] Notes * Abdullahi Cano RN - 03/08/2025 9:28 AM EDT [place] tab updated. documented in this encounter Plan of Treatment Not on file documented as of this encounter Visit Diagnoses Not on filedocumented in this encounter Additional Health Concerns Assessment Noted Time PHQ-9 Depression Total Score: 13 025 2:00 PM EDT documented as of this encounter Care Teams Certified Medication Technician Relationship Specialty Start Date End Date Yonatan Graves DO [address] [place] [address] PCP - General 02/01/25 Farida Ortega, HARLEEN [address] [place] [address] Referring Physician Gastroenterology 09/02/23 documented as of this encounter
--- OUTSIDE RECORDS SUMMARY | 2025-03-09 19:35 | XMS_ITS | Encounter Summary ---
Author Organization [facility] Address [address] [place] [id number] Care Team Providers Care Elevator Conductor Name Role Phone Yonatan Graves DO Primary Care Provider Farida Ortega FABRIC CUTTER Unavailable [phone] Source Comments This information has been disclosed [...] release of HIV test results or diagnoses. [id number] Encounter Details Date Type Department Care Team (Late st Contact Info) Description 02/23/2025 Chart Note [facility] Transplant at [address] [place] [phone] Abdullahi Cano RN Reviewed upcoming transplant time line. Will schedule into trasnplant Social History Tobacco Use Types Packs/Day Years [...] Progress Notes * Abdullahi Cano RN - 02/23/2025 2:37 PM EDT Reviewed upcoming transplant time line. Will schedule into trasnplant clinic on 04/11 for pre op appointments. documented in this encounter Plan of Treatment Not on file documented as of this encounter Visit Diagnoses Not on filedocumented in this encounter Additional Health Concerns Assessment Noted Time PHQ-9 Depression Total Score: 13 025 2:00 PM EDT documented as of this encounter Care Teams Elevator Conductor Relationship Specialty Start Date End Date Yonatan Graves DO [address] [place] [address] PCP - General 02/01/25 Farida Ortega, FABRIC CUTTER [address] [place] [phone] Referring Physician Gastroenterology 09/02/23 documented as of this encounter
--- OUTSIDE RECORDS SUMMARY | 2025-03-09 19:35 | XMS_ITS | Clinical Summary ---
Author Organization [facility] Address [address] [place] [id number] Care Team Providers Care Block Sawyer Name Role Phone Yonatan Graves Primary Care Provider Farida Ortega LOCOMOTIVE ELECTRICIAN Unavailable [phone] Source Comments This information has been disclosed [...] therelease of HIV test results or diagnoses. [id number] Allergies Active Allergy Reactions Criticality Noted Date Comments Amoxicillin Rash Low 09/01/2023 Morphine Rash Low 12/08/2017 Penicillins Rash Low 06/06/2015 Medications gabapentin (NEURONTIN) 800 MG tablet Take 1 tablet (800 mg total) by mouth 3 times a day. Active ondansetron (ZOFRAN-ODT) 8 MG disintegrating tablet Take 1 tablet (8 mg total) by mouth every 8 hours as needed for Nausea. 20 tablet 5 Active furosemide (LASIX) 20 MG tablet TAKE 3 TABLETS(60 MG) BY MOUTH TWICE DAILY 540 tablet 1 5 Active spironolactone (ALDACTONE) 50 MG tablet TAKE 3 TABLETS BY MOUTH TWICE DAILY 540 tablet 1 5 Active isoniazid (NYDRAZID) 300 MG tabletIndications:L atent tuberculosis Take 3 tablets (900 mg total) by mouth once a week for 12 doses. 12 tablet 2 07/22/03/30/20 25 Active pyridoxine, vitamin B6, (B-6) 50 MG tabletIndications:L atent tuberculosis Take 1 tablet (50 mg total) by mouth once a week for 12 doses. 4 tablet 2 5 03/30/20 25 Active rifapentine (PRIFTIN) 150 mg TabIndications:Late nt tuberculosis Take 6 tablets (900 mg total) by mouth once a week for 12 doses. 24 tablet 2 5 04/01/20 25 Active ondansetron (ZOFRAN) 4 MG tabletIndications:A lcoholic cirrhosis of liver with ascites (CMS-HCC) Take 1 tablet (4 mg total) by mouth every 8 hours as needed for Nausea. 40 tablet 2 Active carvediloL (COREG) 3.125 MG tablet Take 1 tablet (3.125 mg total) by mouth 2 times a day with meals. 180 tablet 1 Active Active Problems Problem Noted Date Diagnosed Date Immunosuppression 12/21/2024 Ascites 12/17/2024 Jaundice 12/17/2024 Fatigue 12/17/2024 Pre-transplant evaluation for chronic liver dise ase 12/14/2024 High risk surgery, pre-operative cardiovascular examination 12/14/2024 Cardiovascular risk factor 12/14/2024 Alcoholic cirrhosis of liver with ascites 2024 Encounters Date Type Department Care Team Description 03/09/2025 Orders Only [facility] Liver Transplant at [address] [place] [address] Lashawn Lira RN Pre-transplant evaluation for chronic liver disease (Primary Dx) 03/09/2025 Telephone [facility] Liver Transplant at [address] [place] [address] Tresa Reilly MA 03/09/2025 Chart Note [facility] Liver Transplant at [address] [place] [address] Tresa Reilly MA Lab results entered from [facility] on 03/08/25. 03/09/2025 Telephone [facility] Liver Transplant at [address] [place] [phone] Tresa Reilly MA 03/09/2025 Chart Note [facility] Kidney Transplant at [address] [phone] Niya Tripp Faxed Clinical for Listing/Txp Auth 03/08/2025 Telephone [facility] Liver Transplant at [address] [address] Tresa Reilly MA 03/08/2025 Telephone [facility] Liver Transplant at [address] [address] Abdullahi Cano RN 03/08/2025 Telephone [facility] Liver Transplant at [address] [address] Tresa Reilly MA 03/08/2025 Chart Note [facility] Liver Transplant at [address] [address] Abdullahi Cano, KONSTANTIN [place] tab updated. 03/08/2025 Telephone [facility] Liver Transplant at [address] [address] Ginna Rossi MA 03/02/2025 Orders Only [facility] Liver Transplant at [address] [address] Abdullahi Cano RN Pre-transplant evaluation for chronic liver disease (Primary Dx); 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) 03/01/2025 Telephone [facility] Liver Transplant at [address] [place] [phone] Ginna Rossi MA 03/01/2025 Telephone [facility] Liver Transplant at [address] [address] Abdullahi Cano, RN 02/23/2025 Chart Note [facility] Liver Transplant at [address] [address] Abdullahi Cano, RN Reviewed upcoming transplant time line. Will schedule into trasnplant 02/18/2025 Telephone [facility] Liver Transplant at [address] [address] Abdullahi Cano, KONSTANTIN 02/11/2025 Telephone [facility] Liver Transplant at [address] [address] Abdullahi Cano, KONSTANTIN 02/10/2025 Telephone [facility] Liver Transplant at [address] [address] Abdullahi Cano, KONSTANTIN 02/10/2025 Chart Note [facility] Liver Transplant at [address] [address] Abdullahi Cano, RN Multi-disciplinary Hepatobiliary Case Conference Review: 02/09/2025 Telephone [facility] Liver Transplant at [address] [address] Abdullahi Cano, RN 02/07/2025 2:57 PM EDT - 02/07/2025 11:59 PM EDT Hospital Encounter [facility] MRI at [address] [address] Mario Ramirez MD 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); Pre-transplant evaluation for liver transplant Discharge Disposition: Home or Self Care WITHOUT Home Care Services 02/07/2025 2:00 PM EDT Office Visit [facility] Liver Transplant at [address] [phone] Mario Ramirez MD 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 02/07/2025 1:00 PM EDT Office Visit [facility] Anesthesia Transplant at [address] [address] Unknown, Attending Provider Richard Li MD Pre-transplant evaluation for chronic liver disease (Primary Dx) 02/04/2025 Telephone [facility] Liver Transplant at [address] [phone] Abdullahi Cano RN 02/01/2025 1:42 PM EDT - 02/01/2025 11:59 PM EDT Hospital Encounter [facility] Echocardiography Laboratory [address] [place] [address] Mario aRmirez MD 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); Pre-transplant evaluation for chronic liver disease; 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); Cardiovascular risk factor; Pre-transplant evaluation for liver transplant Discharge Disposition: Home or Self Care WITHOUT Home Care Services 02/01/2025 1:00 PM EDT - 02/01/2025 1:41 PM EDT Hospital Encounter [facility] [address] [place] [address] Mario Ramirez MD 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) Discharge Disposition: Home or Self Care WITHOUT Home Care Services 01/31/2025 Refill [facility] Liver Transplant at [address] [phone] Mario Ramirez MD Nausea (Primary Dx) 01/28/2025 Telephone [facility] [address] [place], [place] [phone] Unknown, Attending Provider After Hours Call 01/28/2025 Telephone [facility] [address] [place], [place] [phone] Unknown, Attending Provider After Hours Call 01/28/2025 Telephone [facility] Liver Transplant at [address] [place] [address] Abdullahi Cano, RN 01/21/2025 Chart Note [facility] Kidney Transplant at [address] [place] [address] Niya Tripp Patient is financially cleared to continue liver transplant evaluation 01/20/2025 Telephone [facility] Liver Transplant at [address] [address] Abdullahi Cano, KONSTANTIN 01/20/2025 Telephone [facility] Liver Transplant at [address] [place] [address] Abdullahi Cano, KONSTANTIN 01/14/2025 Telephone [facility] Liver Transplant at [address] [phone] Abdullahi Cano, RN 01/14/2025 Orders Only [facility] Liver Transplant at [address] [phone] Abdullahi Cano, RN Alcoholic cirrhosis of liver with ascites ([facility]-HCC) 01/13/2025 1:00 PM EDT Office Visit [facility] Psychiatry Transplant at [address] [place] [address] Annmarie Rangel PsyD Generalized anxiety disorder (Primary Dx); Alcohol use disorder, severe, in sustained remission ([facility]-HCC) 01/13/2025 Telephone [facility] Liver Transplant at [address] [place] [address] Abdullahi Cano, KONSTANTIN 01/13/2025 Orders Only [facility] Liver Transplant at [address] [address] Abdullahi Cano, RN Latent tuberculosis 01/12/2025 Telephone [facility] Liver Transplant at [address] [phone] Tran Storm MA 01/11/2025 Telephone [facility] Liver Transplant at [address] [phone] Abdullahi Cano, KONSTANTIN 01/11/2025 Orders Only [facility] Liver Transplant at [address] [phone] Abdullahi Cano, RN 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; Pre-transplant evaluation for chronic liver disease; Tuberculosis; Preoperative clearance; New medication added 01/11/2025 Results Follow-Up [facility] Liver Transplant at [address] [address] Abdullahi Cano, RN X-ray Chest PA and Lateral 01/11/2025 Orders Only [facility] [address] [place] [phone] Frank Beltran MD Latent tuberculosis (Primary Dx) 01/10/2025 2:25 PM EDT - 01/10/2025 11:59 PM EDT Hospital Encounter [facility] Radiology [address] [place] [phone] Frank Beltran MD Positive QuantiFERON-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 Discharge Disposition: Home or Self Care WITHOUT Home Care Services 01/10/2025 1:30 PM EDT Office Visit [facility] Liver Transplant at [address] [phone] Phani Richmond MD Huaman Joo, Moises Arturo, MD 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); Encounter for pre-transplant evaluation for liver transplant 12/31/2024 Telephone [facility] Liver Transplant at [address] [place] [phone] Abdullahi Cano, KONSTANTIN 12/31/2024 Telephone [facility] Liver Transplant at [address] [place] [address] Tresa Reilly MA 12/29/2024 Telephone [facility] Liver Transplant at [address] [place] [phone] Nina Britton MA 12/23/2024 Refill [facility] Gastroenterology at [facility] Office [address] [place] [phone] Subhash Connolly, SANTOSH 12/22/2024 Telephone [facility] Liver Transplant at [address] [place] [phone] Abdullahi Cano, KONSTANTIN 12/22/2024 Chart Note [facility] Kidney Transplant at [address] [place] [address] Niya Tripp Organ: Liver 12/20/2024 4:10 PM EDT [facility] [address] [place] [phone] Mario Ramirez MD 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); Pre-transplant evaluation for chronic liver disease; 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); Pre-transplant evaluation for liver transplant 12/20/2024 3:00 PM EDT Office Visit [facility] Liver Transplant at [address] [place] [address] Mario Ramirez MD 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) (Primary Dx); Pre-transplant evaluation for chronic liver disease; Alcoholic cirrhosis of liver with ascites (CMS-HCC); Cardiovascular risk factor; Pre-transplant evaluation for liver transplant 12/20/2024 1:30 PM EDT Office Visit [facility] Liver Transplant at [address] [phone] Quan Yates III, MD 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) (Primary Dx); Alcoholic cirrhosis of liver with ascites (CMS-HCC); Immunosuppression (CMS-HCC) 12/20/2024 Nutrition [facility] Kidney Transplant at [address] [address] Yonatan Sarmiento, JACKSON 12/20/2024 Orders Only [facility] Liver Transplant at [address] [address] Abdullahi Cano, KONSTANTIN Pre-transplant evaluation for chronic liver disease (Primary Dx); Alcoholic cirrhosis of liver with ascites (CMS-HCC); Cardiovascular risk factor 12/17/2024 Telephone [facility] Liver Transplant at [address] [address] Abdullahi Cano, RN from Last 3 Months Immunizations Immunization Administration [...] 100% 02/07/2025 1 :15 PM EDT Weight 68.9 kg (152 lb) 02/07/2025 5:53 PM EDT Height 165.1 cm (5' 5 ) 01/10/2025 1:23 PM EDT Body Mass Index 25.29 01/10/2025 1:23 PM EDT Plan of Treatment Health Maintenance Due Date Last Done Comments Immunization: COVID-19 (#1) 1995 Immunization: DTaP/Tdap/Td ( 1 - Tdap) 2009 Immunization: Hepatitis A (1 of 2 - Risk 2-dose series) 2009 Immunization: Pneumococcal ( 1 of 2 - PCV) 2009 Immunization: Zoster (1 of 2) 2009 Cervical Cancer Screening/Pa p Smear (MyChart) 01/26/2020 Immunization: Hepatitis B (3 of 3 - 19+ 3-dose series) 02/17/2025 11/02/2024, 08/20/2024 Immunization: Influenza (MyC poole) (#1) 2025 04/19/2010 Depression Screening 12/20/2025 12/20/2024, 11/05/19 25 Renal Function/GFR 03/08/2026 03/08/2025, 0 02/07/2025, 12/20/2024, Additional history exists HIV Screening Completed 12/20/2024 Hepatitis C Screening (MyChart) Completed , 09/01/2023 Procedures Procedure Name Priority Date/Time Associated Diagnosis Comments RENAL FUNCTION PANEL W/O EGFR Routine 03/08/2025 1:13 PM EDT PROTIME-INR Routine 03/08/2025 1:13 PM EDT CBC AND DIFFERENTIAL Routine 03/08/2025 1:13 PM EDT HEPATIC FUNCTION PANEL Routine 1:13 PM EDT MRI ABDOMEN W AND WO CONTRAST Routine 02/07/2025 5:45 PM EDT Alcoholic cirrhosis of liver with ascites (CMS-HCC) Pre-transplant evaluation for liver transplant PHOSPHATIDYLETHANOL CONFIRMATION, B Routine 02/07/2025 2:19 PM EDT Alcoholic cirrhosis of liver with ascites (CMS-HCC) AFP TUMOR MARKER Routine 02/07/2025 2:19 PM EDT Alcoholic cirrhosis of liver with ascites (CMS-HCC) HEPATIC FUNCTION PANEL Routine 2:19 PM EDT Alcoholic cirrhosis of liver with ascites (CMS-HCC) PROTIME-INR Routine 02/07/2025 2:19 PM EDT Alcoholic cirrhosis of liver with ascites (CMS-HCC) CBC Routine 02/07/2025 2:19 PM EDT Alcoholic cirrhosis of liver with ascites (CMS-HCC) RENAL FUNCTION PANEL W/EGFR Routine 02/07/2025 2:19 PM EDT Alcoholic cirrhosis of liver with ascites (CMS-HCC) COCCIDIOIDES ANTIBODY REFLEXIVE PANEL Routine 02/07/2025 2:19 PM EDT Encounter for pre-transplant evaluation for liver transplant ECHO COMPLETE Routine 02/01/2025 4:25 PM EDT 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) Pre-transplant evaluation for chronic liver disease Alcoholic cirrhosis of liver with ascites (CMS-HCC) Cardiovascular risk factor Pre-transplant evaluation for liver transplant CT CHEST WO CONTRAST Routine 02/01/2025 1:41 PM EDT Alcoholic cirrhosis of liver with ascites (CMS-HCC) XR CHEST PA AND LATERAL Routine 01/11/20 2:57 PM EDT Positive QuantiFERON-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 [...] Alcoholic cirrhosis of liver with ascites (CMS-HCC) [id number] (AAT) QUANTITATION & MUTATION Routine 12/20/2024 4:30 [...] liver with ascites (CMS-HCC) Cardiovascular risk factor from Last 3 Months Results * Hepatic Function Panel (03/08/2025 1:13 PM EDT) Only the most recent of3 resultswithin the time period is included. Bilirubin, Direct 0.8 Bilirubin, Indirect 1.10 Alkaline Phosphatase 139 ALT 39 AST 43 Total Bilirubin 1.90 Total Protein 6.5 Plasma Result [facility] Provider MD LAB BLOOD ORDERABLES Rosa l Result * (ABNORMAL) Protime-INR (03/08/2025 1:13 PM EDT) Only the most recent of3 resultswithin the time period is included. Pathologist [facility] INR 1.2(A) 0.9 - 1.1 Protime 12.6 Plasma Result [facility] MD LAB BLOOD ORDERABLES Rosa l Result * (ABNORMAL) CBC and differential (03/08/2025 1:13 PM EDT) [facility] Hemoglobin 11.4(A) 12.0 - 16.0 g/dL Hematocrit 34.6(A) 36 - 46 % RDW 14.1 11.5 - 14.5 % MCH 31.9 26.0 - 34.0 pg MCHC 32.9 30 - 37 g/dL MCV 96.9 82.0 - 108.0 fL Platelets 76 K/ L RBC 3.6(A) 4.00 - 5.20 10^6/ L WBC 3.1 10^3/mL Blood Result [facility] MD LAB BLOOD ORDERABLES Rosa l Result * (ABNORMAL) Renal Function Panel w/o EGFR (03/08/2025 1:13 PM EDT) [facility] Glucose 97 BUN 8 CO2 25.4(A) 13 - 22 mmol/L Creatinine 0.6 Potassium 3.3 Sodium 140 Chloride 108 Phosphorus 3.0 2.5 - 4.9 mg/dL Calcium 8.3 EGFR 120 mg/dL Albumin 3.1(A) 3.5 - 5.0 g/dL Blood Result [facility] MD LAB BLOOD ORDERABLES Rosa l Result * MRI Abdomen W and WO contrast [...] mL of GADOBUTROL 1 MMOL/ML INTRAVENOUS SYRINGE ([facility]) administered intravenously COMPARISON: MRI abdomen 08/10/2024 FINDINGS: [...] mL of GADOBUTROL 1 MMOL/ML INTRAVENOUS SYRINGE ([facility])administered intravenously COMPARISON: MRI abdomen 08/10/2024 FINDINGS: The [...] sequences (LIRADS 4; image 228 and 708 [id number]). * Subcapsular segment 5 T1 hyperintense lesion measuring 0.5 x 0.5 cmwith arterial hyperenhancement and peripheral washout on delayed sequences(LIRADS 4; image 263 and 743 series 14). * Subcapsular segment 4B T1 hyperintense nodule measuring 0.6 x 0.5 cmwith arterial hyperenhancement without washout (LIRADS 3; image 226 ). * Subcapsular segment IVb T1 hyperintense nodule measuring 0.4 x 0.3 cmwith arterial hyperenhancement without washout (LIRADS 3; image 395 ). * Two additional subcentimeter T1 hyperintense arterially [...] 2:53 PM EDT us Mario Ramirez MD IM MRI ORDERABLES Final Resu lt * (ABNORMAL) Coccidioides Antibody Reflexive Panel (02/07/2025 2:19 PM EDT) Coccidioides IgM 1.2(H) <=0.9 IV 02/12/20 25 3:08 PM EDT [facility] Comment: INTERPRETIVE INFORMATION: Coccidioides Antibody, [...] 0.7 <=0.9 IV 02/12/20 3:08 PM EDT [facility] Comment: INTERPRETIVE INFORMATION: Coccidioides Antibody, [...] represented in the [facility] tests. Effective March 262958 Coccidioides Ab, IgG by [facility] will be made non-orderable. [facility] offers order code [id number] Coccidioides Abs, IgG/IgM, EIA. For further information, please contact your local [facility] [employer]. Coccidioide Titer, Complement Fixation <1:2 <1:2 02/14/2025 1:43 AM EDT [facility] Comment: INTERPRETIVE INFORMATION: Coccidioide Titer [...] Detected Not Detected 02/15/2025 1:43 AM EDT [facility] Comment: Clinical Interpretation: No Coccidioides antibodies (ie, IDTP (IgM), IDCF (IgG)) were detected. This result does not exclude Coccidioides infection. No previous value was reported. A value of Not Detected was entered by IF on 02/15/2025 02:06 Serum 02/07/2025 2:19 PM EDT 02/11/2025 4:07 PM EDT Narrative [facility] - 02/15/2025 2:06 AM EDT PERFORMED AT: [employer] [address] [place] [phone] HOME APPLIANCE WASHING MACHINE MECHANIC: Mark Atwood [facility] PHONE: [phone] [facility] Kin Kowalski MD LAB BLOOD ORDERABLES Final Result Performing Organization Address City/State/[facility] Co de Phone Number [facility] [address] * Phosphatidylethanol Confirmation, B (02/07/2025 2:19 PM EDT) Only the most recent of2 resultswithin the time period is included. PETH 16:0/18.1 (POPETH) <10 Cutoff: 10 ng/mL 02/09/2025 4:02 AM EDT [facility] Comment: Phosphatidylethanol (PEth) homologues result [...] PETH 16:0/18.2 (PLPETH) <10 Cutoff: 10 ng/mL 02/09/2025 4:02 AM EDT [facility] Comment: PEth 16:0/18:2 (PLPEth) Reference ranges are not well established PEth Interpretation Negative. 02/09 4:02 AM EDT [facility] Comment: ADDITIONAL INFORMATION This report is intended for use in clinical monitoring and management of patients. It is not intended for use in employment-related testing. This test was developed and its performance characteristics determined by [facility] in a manner consistent with CLIA requirements. This test has not been cleared or approved by the U.S. Food and Drug Administration. Test Performed by: [facility] [address] [place] [address] Wash Test Checker: Alexia David Ph.D.; CLIA# [id number] Whole Blood 02/07/2025 2:19 PM EDT 02/09/2025 4:02 AM EDT Mario Ramirez MD LAB BLOOD ORDERABLES Final Re sult [facility] [address] [place] [address], [facility] * (ABNORMAL) Renal Function Panel w/EGFR (02/07/2025 2:19 PM EDT) Only the most recent of2 resultswithin the time period is included. Sodium 139 133 - 146 mmol/L 02/07/2025 3:42 PM EDT [facility] Potassium 3.1(L) 3.5 - 5.3 mmol/L 02/07/2025 3:42 PM EDT [facility] Chloride 109 98 - 110 mmol/L 02/07/2025 3:42 PM EDT [facility] CO2 24 21 - 33 mmol/L 02/07/2025 3:42 PM EDT [facility] Anion Gap 6 3 - 16 mmol/L 02/07/2025 3:42 PM EDT [facility] BUN 8 7 - 25 mg/dL 02/07/2025 3:42 PM EDT [facility] Creatinine 0.51(L) 0.60 - 1.30 mg/dL 02/07/2025 3:42 PM EDT [facility] Glucose 86 70 - 100 mg/dL 02/07/2025 3:42 PM EDT [facility] Calcium 8.6 8.6 - 10.3 mg/dL 02/07/2025 3:42 PM EDT [facility] Phosphorus 2.5 2.1 - 4.7 mg/dL 02/07/2025 3:42 PM EDT [facility] Albumin 3.9 3.5 - 5.7 g/dL 02/07/2025 3:42 PM EDT [facility] Osmolality, Calculated 286 278 - 305 mOsm/kg 02/07/2025 3:42 PM EDT [facility] EGFR >90 02/07/2025 3:42 PM EDT [facility] Comment: As of 2021, the [...] renal disease. For additional information: www.kidney.org Plasma 02/07/2025 2:19 PM EDT 02/07/2025 3:09 PM EDT us Mario Ramirez MD LAB BLOOD ORDERABLES Final Re sult [facility] [address] * AFP tumor marker (02/07/2025 2:19 PM EDT) Only the most recent of2 resultswithin the time period is included. Pathologist [facility] AFP-Tumor Marker 3.4 0.0 - 9.0 ng/mL 02/07/2025 3:43 PM EDT [facility] Serum 02/07/2025 2:19 PM EDT 02/07/2025 3:10 PM EDT Narrative [facility] - 02/07/2025 3:43 PM EDT The testing method for AFP is a chemiluminescent immunoassay manufactured by [employer] Concentrations of AFP obtained by different assay methods or kits may vary and cannot be used interchangeably. AFP results cannot be interpreted as absolute evidence of the presence or absence of malignant disease. Mario Ramirez MD LAB BLOOD ORDERABLES Final Re sult [facility] [address] * (ABNORMAL) CBC (02/07/2025 2:19 PM EDT) Only the most recent of2 resultswithin the time period is included. Pathologist [facility] WBC 3.1(L) 3.8 - 10.8 10E3/uL 02/07/2025 3:21 PM EDT [facility] RBC 3.59(L) 3.80 - 5.10 10E6/uL 02/07/2025 3:21 PM EDT [facility] Hemoglobin 12.1 11.7 - 15.5 g/dL 02/07/2025 3:21 PM EDT [facility] Hematocrit 34.2(L) 35.0 - 45.0 % 02/07/2025 3:21 PM EDT [facility] [facility] MCV 95.2 80.0 - 100.0 fL 02/07/2025 3:21 PM EDT [facility] MCH 33.7(H) 27.0 - 33.0 pg 02/07/2025 3:21 PM EDT [facility] MCHC 35.4 32.0 - 36.0 g/dL 02/07/2025 3:21 PM EDT [facility] RDW 14.6 11.0 - 15.0 % 02/07/2025 3:21 PM EDT [facility] Platelets 85(L) 140 - 400 10E3/uL 02/07/2025 3:21 PM EDT [facility] MPV 9.8 7.5 - 11.5 fL 02/07/2025 3:21 PM EDT [facility] Whole Blood 02/07/2025 2:19 PM EDT 02/07/2025 3:11 PM EDT Mario Ramirez MD LAB BLOOD ORDERABLES Final Re sult [facility] [address] [place] [address] * ECHO COMPLETE (02/01/2025 4:25 PM EDT) Anatomical Region Laterality Modality Ultrasound 02/01/2025 1:56 PM EDT Narrative 02/01/2025 4:44 PM EDT * [facility]* [address] [place] [address] Transthoracic Echocardiogram Patient: Mindy Wade Room: Height: 65in MR Number: [id number] : 1990 Weight: 152lb Account: [id number] Gender: F BP: 103 / 62 Study Date: 02/01/2025 Age: 35 BSA: 1.76m^2 Referring physician: Mario Ramirez Interpreting physician: Arie Giles MD PERFORMING Prince [employer]illo [employer] Abdullahi Silver ORDERING Mario Ramirez REFERRING Mario Ramirez ATTENDING Mario Ramirez Procedure:TRANSTHORACIC ECHO (TTE) COMPLETE Order: Accession WITH BUBBLE Number:[id number] Indications: Pre-Transplant Evaluation for Chronic Liver Disease [...] baseline or with provocation, shows a very tphkaatjds-xa-ocgm atrial level shunt. There is a shunt [...] baseline or with provocation, shows a very bpopnuifzq-dx-iepa atrial level shunt. There is a shunt [...] baseline or with provocation, shows a very eumjkyiygu-cl-emui atrial level shunt. There is a shunt [...] Reviewed and confirmed by Arie Giles MD [id number] Procedure Note Arie Giles MD - 02/01/2025 * [facility]* [address] [place] [address] Transthoracic Echocardiogram Patient: Mindy Wade Room: Height: 65in MR Number: [id number] : 1990 Weight: 152lb Account: [id number] Gender: F BP: 103 / 62 Study Date: 02/01/2025 Age: 35 BSA: 1.76m^2 Referring physician: Mario Ramirez Interpreting physician: Arie Giles MD PERFORMING [employer] Abdullahi Silver ORDERING Mario Ramirez REFERRING Mario Ramirez ATTENDING Mario Ramirez Procedure:TRANSTHORACIC ECHO (TTE) COMPLETE Order: Accession WITH BUBBLE Number:[id number] Indications: Pre-Transplant Evaluation for Chronic Liver Disease (k70.31). PMH: No prior cardiac history. Study data: Height: 65in. 165.1cm. Weight: 152lb. 69kg. Study status: Routine. Procedure: A transthoracic echocardiogram was performed.Image quality was good. Scanning was performed from the parasternal, apical,and subcostal acoustic windows. Intravenous contrast (agitated saline) was administered. Transthoracic echocardiogram. M-mode, [id number], complete spectral Doppler, and color Doppler. Birthdate: [...] baseline or with provocation, shows a very xjeafwxlfi-qs-ldfu atrial level shunt. Thereis a shunt which [...] at baseline or with provocation, showsa very tscgablmep-ub-eoou atrial level shunt. There is a shunt [...] baseline or with provocation, shows a very rizeraijaw-pd-oone atrial level shunt. There suzanne shunt which [...] Reviewed and confirmed by Arie Giles MD [id number] us Mario Ramirez MD CV ECHO ORDERABLES Final Resu lt * CT Chest WO contrast (02/01/2025 1:41 [...] Mack MD at 02/07/2025 1:51 PM EDT us Mario Ramirez MD IMG CT ORDERABLES Final Resul t * X-ray Chest PA and Lateral (01/10/2025 [...] Nonreactive 12/20/2024 5:57 PM EDT [facility] Serum 12/20/2024 4:30 PM EDT 12/20/2024 4:58 PM EDT Narrative [facility] - 12/20/2024 5:57 PM EDT HAV antibodies not detected Mario Ramirez MD LAB BLOOD ORDERABLES Final Re sult [facility] [address] * (ABNORMAL) MMR(IgG) Panel (Measles, Mumps, Rubella) (12/20/2024 4:30 PM EDT) Mumps IgG Positive 12/20/2024 5:52 PM EDT [facility] MUMPS IGG NUM 141.00(H) 0.0 - 8.9 U/mL 12/20/2024 5:52 PM EDT [facility] Rubella IgG Scr Positive 12/20/2024 5:52 PM EDT [facility] RUB NUM 4.94(H) 0.0 - 0.8 INDEX 12/20/2024 5:52 PM EDT [facility] Rubeola Ab, IgG Positive 12/20/2024 5:52 PM EDT [facility] RUB IGG NUM >300.00(H) 0.00 - 13.40 U/mL 12/20/2024 5:52 PM EDT [facility] Serum 12/20/2024 4:30 PM EDT 12/20/2024 4:58 PM EDT Narrative [facility] - 12/20/2024 5:52 PM EDT [...] BLOOD ORDERABLES Final Re sult [facility] [address] [facility]. [address] * Syphilis Screening (Trepia) (12/20/2024 4:30 PM EDT) Treponema Pallidum Negative Negative 12/20/2024 5:56 PM EDT [facility] Comment: No serological evidence of infection with Treponema pallidum (incubating or early primary syphilis cannot be excluded). Serum 12/20/2024 4:30 PM EDT 12/20/2024 4:58 PM EDT Mario Ramirez MD LAB BLOOD ORDERABLES Final Re sult Performing Organization Address City/[facility]/ZIP Co de Phone Number [facility] [address]. [address] * QuantiFERON TB2 Ag (12/20/2024 4:30 PM EDT) QuantiFERON TB2 Ag Value 0.25 12/22/2024 10:22 AM EDT [facility] Plasma 12/20/2024 4:30 PM EDT 12/20/2024 5:03 PM EDT Mario Ramirez MD LAB BLOOD ORDERABLES Final Re sult [facility] [address] * QuantiFERON TB1 Ag (12/20/2024 4:30 PM EDT) QuantiFERON TB1 Ag Value 0.46 12/22/2024 10:22 AM EDT [facility] Plasma 12/20/2024 4:30 PM EDT 12/20/2024 5:03 PM EDT Mario Ramirez MD LAB BLOOD ORDERABLES Final Re sult [facility] [address] [facility]. [address] * QuantiFERON Nil (12/20/2024 4:30 PM EDT) Pathologist [facility] QuantiFERON Nil 0.06 10:22 AM EDT [facility] Plasma 12/20/2024 4:30 PM EDT 12/20/2024 5:03 PM EDT Mario Ramirez MD LAB BLOOD ORDERABLES Final Re sult Performing Organization Address City/[facility]/ZIP Co de Phone Number [facility] [address] [place] [address]. [address] * (ABNORMAL) QuantiFERON Mitogen (12/20/2024 4:30 PM EDT) Pathologist [facility] QuantiFERON Interpretation Positive( A) Negative 12/22/2024 10:22 AM EDT [facility] Comment:Positive results are supportive of [...] QuantiFERON Mitogen 10.00 12/22/2024 10:22 AM EDT [facility] Plasma 12/20/2024 4:30 PM EDT [...] ORDERABLES Final Re sult Performing Organization Address City/[facility]/ZIP Co de Phone Number [facility] [address] [facility]. [address] * (ABNORMAL) CMV IgG Antibody (12/20/2024 4:30 PM EDT) CMV IgG Positive(A ) Negative 12/20/2024 5:51 PM EDT [facility] CMV IGG NUM >10.00(H) 0.00 - 0.59 U/mL 12/20/2024 5:51 PM EDT [facility] Serum 12/20/2024 4:30 PM EDT 12/20/2024 4:58 PM EDT Mario Ramirez MD LAB BLOOD ORDERABLES Final Re sult [facility] [address] [facility]. [address] * Urine Drug Screen, Comprehensive Panel Scrn/Confirmation (12/20/2024 4:30 PM EDT) BARBITURATES NOT PRESENT 12/22/2024 12:37 PM EDT [facility] BENZODIAZEPINES NOT PRESENT 12/23/19 12:37 PM EDT [facility] CANNABINOIDS NOT PRESENT 12/22/2024 12:37 PM EDT [facility] CROZE CUTTER STIMULANTS NOT PRESENT 12:37 PM EDT [facility] OPIOID ANALGESICS NOT PRESENT 2024 12:37 PM EDT [facility] OPIOID ANTAGONISTS NOT PRESENT 12/22 12:37 PM EDT [facility] SEDATIVES/MUSCLE RELAXANTS NOT PRESENT 12/22/2024 12:37 PM EDT [facility] TRICYCLIC ANTIDEPRESSANTS NOT PRESENT 12/22/2024 12:37 PM EDT [facility] Creatinine, Ur 88.90 mg/dL 12/21/2024 11:24 AM EDT [facility] Comment:Reference range not established for this test. pH 7.6 4.7 - 7.8 12/21/2024 11:24 AM EDT [facility] Specific [place] 1.006 1.003 - 1.035 12/21/2024 11:24 AM EDT [facility] Urine 12/20/2024 4:30 PM EDT 12/20/2024 5:03 PM EDT Narrative [facility] - 12/22/2024 12:37 PM EDT This test has been developed and its performance characteristics determined by [facility] which is certified under [...] URINE ORDERABLES Final Result Performing Organization Address City/State/[facility] Co de Phone Number [facility] [address] [place], [place] [address] * Alpha 1 Antitrypsin AAT Quant & Mutation (12/20/2024 4:30 PM EDT) A-1 Antitrypsin 155 100 - 188 mg/dL 12/21/2024 3:45 AM EDT [facility] A-1 Antitrypsin Pheno MM 12/22/2024 7:08 PM EDT [facility] Comment: MM Phenotype is considered to be normal , producing normal serum levels of gqsai-6-vcaumjll inhibitor and not associated with clinical disease. [...] 4:30 PM EDT 12/22/2024 8:23 PM EDT [facility] - 12/22/2024 8:23 PM EDT PERFORMED AT: [employer] [id number] [employer] MACH[employer] MECHANIC: Parrish Anguiano, PhD PHONE: [phone] PERFORMED AT: [employer] [id number] HOME [employer]PLI[employer] WASHING MACHINE MECHANIC: Chasity Barnard MD PHONE: [phone] Mario Ramirez MD LAB BLOOD ORDERABLES Final Re sult Performing Organization Address City/State/[facility] Co de Phone Number [facility] [address] [place] [address] * Strongyloides Ab (12/20/2024 4:30 PM EDT) Strongyloides Ab Negative Negative 12/22/19 25 11:40 AM EDT [facility] Serum 12/20/2024 4:30 PM EDT 12/21/2024 3:07 PM EDT Narrative [facility] - 12/21/2024 3:07 PM EDT PERFORMED AT: [facility] [id number] [employer] W[employer] MACHINE MECHANIC: Chasity Barnard MD PHONE: [phone] Result [facility] Mario Ramirez MD LAB BLOOD ORDERABLES Final Re sult Performing Organization Address [facility] Co de Phone Number [facility] [address] [facility]. [address] * (ABNORMAL) Iron Studies (Iron + TIBC) (12/20/2024 4:30 PM EDT) Iron 312(H) 50 - 212 ug/dL 12/20/2024 5:42 PM EDT [facility] % Iron Saturation 56.5(H) 15.0 - 55.0 % 12/20/2024 5:42 PM EDT [facility] TIBC 552(H) 265 - 497 ug/dL 12/20/2024 5:42 PM EDT [facility] Serum 12/20/2024 4:30 PM EDT 12/20/2024 4:58 PM EDT Result [facility] Mario Ramirez MD LAB BLOOD ORDERABLES Final Re sult Performing Organization Address [facility] de Phone Number [facility] [address] [facility]. [address] * Hepatitis B Core Antibody (12/20/2024 4:30 PM EDT) Hep B Core Total Ab Nonreactive Nonreactive 12/20/2024 5:52 PM EDT [facility] Comment:Health Department no tified in accordance with reportable infectious disease guidelines. Serum 12/20/2024 4:30 PM EDT 12/20/2024 4:58 PM EDT Narrative [facility] - 12/20/2024 5:52 PM EDT A nonreactive final interpretation indicates that anti-HBc antibodies were not detected in the sample; it is possible that the individual is not infected with HBV. Mario Ramirez MD LAB BLOOD ORDERABLES Final Re sult Performing Organization Address [facility] Co de Phone Number [facility] [address] [facility]. [address] * Ethanol, Serum (12/20/2024 4:30 PM EDT) Ethanol <10 0 - 10 mg/dL 12/20/2024 5:41 PM EDT [facility] Serum 12/20/2024 4:30 PM EDT 12/20/2024 5:03 PM EDT Mario Ramirez MD LAB BLOOD ORDERABLES Final Re sult Performing Organization Address [facility] Co de Phone Number [facility] [address] [facility]. [address] * (ABNORMAL) F-Actin Smooth Muscle Ab (12/20/2024 4:30 PM EDT) Pathologist [facility] F-Actin Smooth Muscle IgG 48(H) 0 - 19 Units 12/21/2024 2:23 PM EDT [facility] Comment: Negative 0 - 19 Weak positive 20 - 30 Moderate to strong positive >30 Actin Antibodies are found in 52-85% of patients with autoimmune hepatitis or chronic active hepatitis and in 22% of patients with primary biliary cirrhosis. Serum 12/20/2024 4:30 PM EDT 12/21/2024 3:07 PM EDT Narrative [facility] - 12/21/2024 3:07 PM EDT PERFORMED AT: [facility] [id number] [employer] W[employer] M[employer] MECHANIC: Parrish Anguiano, PhD PHONE: [phone] Mario Ramirez MD LAB BLOOD ORDERABLES Final Re sult Performing Organization Address [facility] Co de Phone Number [facility] [address] * BLUE (IFA) with Titer (12/20/2024 4:30 PM EDT) BLUE Titer by IFA Negative 12/22/19 1:59 PM EDT [facility] Comment: Negative <1:80 Borderline 1:80 Positive >1:80 ICAP nomenclature: AC-0 For more information about Hep-2 cell patterns use ANApatterns.org, the official website for the International Consensus on Antinuclear Antibody (BLUE) Patterns (ICAP). Serum 12/20/2024 4:30 PM EDT 12/21/2024 3:07 PM EDT Narrative [facility] - 12/21/2024 3:07 PM EDT PERFORMED AT: [facility] [id number] [employer] MECHANIC: Parrish Anguiano, PhD PHONE: [phone] Mario Ramirez MD LAB BLOOD ORDERABLES Final Re sult Performing Organization Address [facility] de Phone Number [facility] [address] [place] [address] * (ABNORMAL) Hepatitis C antibody (12/20/2024 4:30 PM EDT) Pathologist [facility] HCV Ab Reactive( A) Nonreactive 12/20/2024 6:01 PM EDT [facility] Comment: Health Department notified in accordance with reportable infectious disease guidelines. Health Department notified in accordance with reportable infectious disease guidelines. Serum 12/20/2024 4:30 PM EDT 12/20/2024 4:58 PM EDT Narrative [facility] - 12/20/2024 6:01 PM EDT Presumptive evidence of antibodies to HCV: follow CDC recommendations for supplemental testing. Mario Ramirez MD LAB BLOOD ORDERABLES Final Re sult Performing Organization Address [facility] Co de Phone Number [facility] [address] * (ABNORMAL) Vanessa-Lopez virus VCA IgG Antibody (12/20/2024 4:30 PM EDT) Pathologist [facility] EBV VCA IgG Positive( A) Negative 12/20/2024 5:53 PM EDT [facility] Comment:Presence of detectab le VCA IgG antibodies. A positive result indicates current or past exposure to Vanessa-Lopez virus. EBV IGG NUM >750.00(H ) 0.00 - 17.99 U/mL 12/20/2024 5:53 PM EDT [facility] Serum 12/20/2024 4:30 PM EDT 12/20/2024 4:58 PM EDT Mario Ramirez MD LAB BLOOD ORDERABLES Final Re sult Performing Organization Address [facility] Co de Phone Number [facility] [address] [facility]. [address] * Nicotine(Cotinine), Qual, Urine (12/20/2024 4:30 PM EDT) Cotinine, UR Negative Negative 12/21/2024 8:21 AM EDT [facility] Urine 12/20/2024 4:30 PM EDT 12/20/2024 5:03 PM EDT Mario Ramirez MD URINE ORDERABLES Final Result Performing Organization Address [facility] de Phone Number [facility] [address] [facility]. [address] * Ceruloplasmin (12/20/2024 4:30 PM EDT) Ceruloplasmin 20.5 18.0 - 58.0 mg/dL 12/20/2024 6:47 PM EDT [facility] Comment: Effective 03/25/2016: The units for ceruloplasmin have changed from mg/L to mg/dL. The new reference range is 18-58 mg/dL. Historical values can be converted from mg/L to mg/dL by dividing by a factor of 10. Serum 12/20/2024 4:30 PM EDT 12/20/2024 4:58 PM EDT Mario Ramirez MD LAB BLOOD ORDERABLES Final Re sult Performing Organization Address [facility] Co de Phone Number [facility] [address] [facility]. [address] * ABO/Rh (12/20/2024 4:30 PM EDT) Pathologist [facility] ABO Grouping O 12/20/2024 5:19 PM EDT [facility] Rh Type Positive 12/20/2024 5:19 PM EDT [facility] Blood 12/20/2024 4:30 PM EDT 12/20/2024 4:56 PM EDT Mario Ramirez MD BLOOD BANK TEST ORDERABLES Fi nal Result [facility] [address] [facility]. [address] * Hepatitis C RNA, Quant (12/20/2024 4:30 PM EDT) [facility] Units Not Detected IU/mL 12/21/2024 11:29 AM EDT [facility] Comment:Test methodology for HCV RNA quantification is an FDA-approved nucleic acid amplification assay. The Lower Limit of Quantitation (LLOQ) is 15 IU/mL. The linear range of the assay is 15-100,000,000 IU/mL. The Limit of Detection (LoD) is 12.0 IU/mL for EDTA plasma. The reference range is Not Detected. IU log10 See Note log 10 IU/mL 12/21/2024 11:29 AM EDT [facility] Comment:HCV RNA not detected . Plasma 12/20/2024 4:30 PM EDT 12/20/2024 6:30 PM EDT Mario Ramirez MD LAB BLOOD ORDERABLES Final Re sult [facility] [address] [facility]. [address] * (ABNORMAL) Vitamin D 25 hydroxy (12/20/2024 4:30 PM EDT) Pathologist [facility] Vit D, 25-Hydroxy 28.0(L) 30.0 - 100.0 ng/mL 12/20/2024 5:50 PM EDT [facility] Comment: Vitamin D deficiency has been defined by the [employer] of [employer] (IOM) and an Endocrine Society [...] ORDERABLES Final Re sult Performing Organization Address [facility] de Phone Number [facility] [address] * Antimitochondrial antibody (12/20/2024 4:30 PM EDT) Anti-Mitochon Ab IFA <20.0 0.0 - 20.0 Units 12/21/2024 2:23 PM EDT [facility] Comment: Negative 0.0 - 20.0 Equivocal 20.1 - 24.9 Positive >24.9 Mitochondrial (M2) Antibodies are found in 90-96% of patients with primary biliary cirrhosis. Serum 12/20/2024 4:30 PM EDT 12/21/2024 3:07 PM EDT Narrative [facility] - 12/21/2024 3:07 PM EDT PERFORMED AT: [address] [id number] [employer] W[employer] MACHINE MECHANIC: Parrish Anguiano, PhD PHONE: [phone] Mario Ramirez MD LAB BLOOD ORDERABLES Final Re sult Performing Organization Address [facility] de Phone Number [facility] [address] [place] * (ABNORMAL) Differential (12/20/2024 4:30 PM EDT) Neutrophils Relative 37.0(L) 40.0 - 80.0 % 12/20/2024 5:08 PM EDT [facility] Lymphocytes Relative 33.7 15.0 - 45.0 % 12/20/2024 5:08 PM EDT [facility] Monocytes Relative 14.3(H) 0.0 - 12.0 % 12/20/2024 5:08 PM EDT [facility] Eosinophils Relative 13.8(H) 0.0 - 8.0 % 12/20/2024 5:08 PM EDT [facility] Basophils Relative 1.2(H) 0.0 - 1.0 % 12/20/2024 5:08 PM EDT [facility] nRBC 0 0 - 0 /100 WBC 12/20/2024 5:08 PM EDT [facility] Neutrophils Absolute 1,628 1,520 - 8,640 /uL 12/20/2024 5:08 PM EDT [facility] Lymphocytes Absolute 1,483 570 - 4,860 /uL 12/20/2024 5:08 PM EDT [facility] Monocytes Absolute 629 0 - 1,296 /uL 12/20/2024 5:08 PM EDT [facility] Eosinophils Absolute 607 0 - 864 /uL 12/20/2024 5:08 PM EDT [facility] Basophils Absolute 53 0 - 108 /uL 12/20/2024 5:08 PM EDT [facility] Whole Blood 12/20/2024 4:30 PM EDT 12/20/2024 4:58 PM EDT us Mario Ramirez MD LAB BLOOD ORDERABLES Final Re sult [facility] [address] * Toxoplasma gondii antibody, IgG (12/20/2024 4:30 PM EDT) Toxoplasma Gondii IgG <3.0 0.0 - 7.1 IU/mL 12/21/2024 2:25 AM EDT [facility] Comment: Negative <7.2 Equivocal 7.2 - 8.7 Positive >8.7 Serum 12/20/2024 4:30 PM EDT 12/21/2024 4:23 AM EDT [facility] - 12/21/2024 4:23 AM EDT PERFORMED AT: [address] [id number] [employer] W[employer] MACHINE MECHANIC: Parrish Anguiano, PhD PHONE: [phone] Mario Ramirez MD LAB BLOOD ORDERABLES Final Re sult [facility] [address] [facility]. [address] * HIV-1 and HIV-2 Antibodies w/Reflex (12/20/2024 4:30 PM EDT) HIV 1+2 AB/AGN Nonreactive Nonreactive 12/20/2024 5:53 PM EDT [facility] Serum 12/20/2024 4:30 PM EDT 12/20/2024 4:58 PM EDT [facility] - 12/20/2024 5:53 PM EDT \HIVRNR Mario Ramirez MD LAB BLOOD ORDERABLES Final Re sult [facility] [address] [facility]. [address] * Hepatitis B surface antibody (12/20/2024 4:30 PM EDT) Hep B S Ab Nonreactive Nonreactive 12/20/2024 6:05 PM EDT [facility] HBSAB NUMBER 5.92 0.00 - 7.99 mIU/mL 12/20/2024 6:05 PM EDT [facility] Serum 12/20/2024 4:30 PM EDT 12/20/2024 4:58 PM EDT [facility] - 12/20/2024 6:05 PM EDT Individual is considered not immune to HBV infection. Mario Ramirez MD LAB BLOOD ORDERABLES Final Re sult Performing Organization Address [facility] Co de Phone Number [facility] [address] [facility]. [address] * Hepatitis B surface antigen (12/20/2024 4:30 PM EDT) Pathologist [facility] Hep B Surface Ag Nonreactive Nonreactive 12/20/2024 5:57 PM EDT [facility] Comment:Health Department no tified in accordance with reportable infectious disease guidelines. Serum 12/20/2024 4:30 PM EDT 12/20/2024 4:58 PM EDT [facility] - 12/20/2024 5:57 PM EDT Specimen is considered negative for HBsAg. Mario Ramirez MD LAB BLOOD ORDERABLES Final Re sult Performing Organization Address [facility] Co de Phone Number [facility] [address] [facility]. [address] * Antibody screen (12/20/2024 4:30 PM EDT) [facility] Antibody Screen Negative 12/20/2024 5:34 PM EDT [facility] Blood 12/20/2024 4:30 PM EDT 12/20/2024 4:56 PM EDT [facility] LAB - 12/20/2024 5:38 PM EDT Testing performed by [facility] Mario Ramirez MD BLOOD BANK TEST ORDERABLES Fi nal Result Performing Organization Address [facility] Co de Phone Number [facility] [address] [facility]. [address] * (ABNORMAL) Varicella zoster antibody, IgG (12/20/2024 4:30 PM EDT) Pathologist [facility] Varicella IgG Positive( A) Negative S/CO 12/20/2024 5:51 PM EDT [facility] Comment:Result indicates the presence of [...] S/CO 12/20/2024 5:51 PM EDT [facility] Serum 12/20/2024 4:30 PM EDT 12/20/2024 4:58 PM EDT Mario Ramirez MD LAB BLOOD ORDERABLES Final Re sult Performing Organization Address City/[facility] Co de Phone Number [facility] [address] [facility]. [address] * TSH (Thyroid Stimulating Hormone) (12/20/2024 4:30 PM EDT) TSH 1.26 0.45 - 4.12 uIU/mL 12/20/2024 5:54 PM EDT [facility] Serum 12/20/2024 4:30 PM EDT 12/20/2024 4:58 PM EDT Mario Ramirez MD LAB BLOOD ORDERABLES Final Re sult Performing Organization Address [facility] Co de Phone Number [facility] [address] [facility]. [address] * Hemoglobin A1c (12/20/2024 4:30 PM EDT) Hemoglobin A1C 4.4 4.0 - 5.6 % 12/21/2024 12:33 AM EDT [facility] Comment: Hemoglobin A1c Interpretation Guidelines: [...] BLOOD ORDERABLES Final Re sult [facility] [address] [facility]. [address] * IgA (12/20/2024 4:30 PM EDT) IgA 365.0 70.0 - 400.0 mg/dL 12/21/2024 8:18 AM EDT [facility] Comment:Please interpret the se findings in conjunction with clinical findings, protein electrophoresis, and immunotyping/immunofixation results. Serum 12/20/2024 4:30 PM EDT 12/20/2024 4:58 PM EDT Mario Ramirez MD LAB BLOOD ORDERABLES Final Re sult Performing Organization Address City/[facility]/ZIP Co de Phone Number [facility] [address] [facility]. [address] * Ferritin (12/20/2024 4:30 PM EDT) Pathologist [facility] Ferritin 17.5 11.0 - 306.8 ng/mL 12/20/2024 5:55 PM EDT [facility] Serum 12/20/2024 4:30 PM EDT 12/20/2024 4:58 PM EDT Mario Ramirez MD LAB BLOOD ORDERABLES Final Re sult [facility] [address] [facility]. [address] * (ABNORMAL) Lipid Profile (12/20/2024 4:30 PM EDT) Non-HDL Cholesterol, Calculated 109 0 - 129 mg/dL 12/20/2024 5:32 PM EDT [facility] Comment: Desirable: < 130 mg/dL Above Desirable: 130-159 mg/dL Borderline High: 160-189 mg/dL High: 190-219 mg/dL Very High: > 219 mg/dL Cholesterol, Total 152 0 - 200 mg/dL 12/20/2024 5:32 PM EDT [facility] Triglycerides 54 10 - 149 mg/dL 12/20/2024 5:32 PM EDT [facility] HDL 43(L) 60 - 92 mg/dL 12/20/2024 5:32 PM EDT [facility] Comment: LIPID PROFILE INTERPRETATION CHOLESTEROL,TOTAL(mg/dL) [...] 98 mg/dL 5:32 PM EDT [facility] Plasma 12/20/2024 4:30 PM EDT 12/20/2024 4:58 PM EDT Narrative [facility] - 12/20/2024 5:32 PM EDT Must the patient be fasting for this test?->No LDL cholesterol calculated using the Friedewald equation. us Mario Ramirez MD LAB BLOOD ORDERABLES Final Re sult [facility] [address] [place] [address], [facility] * ECG 12-Lead (MUSE) (12/20/2024 2:00 PM EDT) 12/20/2024 2:00 PM EDT Narrative MUSE - 12/21/2024 10:39 AM EDT Ventricular Rate: 63 BPM Atrial Rate: 63 BPM P-R Interval: 118 ms QRS Duration: 84 ms QT: 480 ms QTc: 491 ms P Free [place]: 23 degrees R Free Union: 46 degrees T Free Union: 52 degrees Diagnosis Line: NORMAL SINUS RHYTHM ^ PROLONGED QT ^ ABNORMAL ECG ^ ^ Confirmed by Anthony RAMOS MD ([id number]) on 12/21/2024 10:39:48 AM Mario Ramirez MD ECG ORDERABLES Final Result MUSE from Last 3 Months Insurance [address] [facility] MEDICARE [id number] [place] [id number] [facility] MEDICARE [id number] [place] [id number] Care Teams Block Sawyer Relationship Specialty Start Date End Date Yonatan Graves DO [address] [place] [address] PCP - General 02/01/25 Farida Ortega, LOCOMOTIVE ELECTRICIAN [address] [place] [address] Referring Physician Gastroenterology 09/02/23
--- OUTSIDE RECORDS SUMMARY | 2025-03-09 19:35 | XMS_ITS | Encounter Summary ---
Author Organization [facility] Address [address] [place] [address] Care Team Providers Care Business Banking Officer Name Role Phone Yonatan Graves DO Primary Care Provider Adryan Bearden Unavailable Encounter Details Date Type Department Care Team (Latest Contact Info) Description 02/24/2025 Travel Social History Tobacco Use Types Packs/Day [...] as of this encounter Care Teams Business Banking Officer Relationship Specialty Start Date End Date Yonatan Graves DO [address] [facility] [address] [place] [address] PCP - General 09/24/22 Adryan Bearden PA [facility] [place] [address] Referring Physician Gastroenterology 09/24/22 documented as of this encounter
--- OUTSIDE RECORDS SUMMARY | 2025-03-09 19:35 | XMS_ITS | Encounter Summary ---
Author Organization [facility] Address [address] [place] [address] Care Team Providers Care Chair Car Attendant Name Role Phone Yonatan Graves DO Primary Care Provider Farida Ortega HARNESS REPAIRER Unavailable [phone] Source Comments This information has been disclosed [...] release of HIV test results or diagnoses. [id number] Encounter Details Date Type Department Care Team (Late st Contact Info) Description 02/09/2025 Telephone [facility] Liver Transplant at [address] [place] [phone] Abdullahi Cano RN Social History Tobacco [...] Progress Notes * Abdullahi Cano RN - 02/09/2025 8:33 AM EDT Spoke with patient about today's cancelled appointment with Dr. Ramirez. Patient was aware and not on her way to the appointment. Reviewed her most recent MRI abd. She understands we will be reviewing tomorrow with the team and she is expecting a call back once it is reviewed. documented in this encounter Plan of Treatment Not on file documented as of this encounter Visit Diagnoses Not on filedocumented in this encounter Additional Health Concerns Assessment Noted Time PHQ-9 Depression Total Score: 13 11/04/ 025 2:00 PM EDT documented as of this encounter Care Teams Chair Car Attendant Relationship Specialty Start Date End Date Yonatan Graves DO [address] [place] [address] PCP - General 02/01/25 Farida Ortega, HARLEEN [address] [place] [address] Referring Physician Gastroenterology 09/02/23 documented as of this encounter
--- OUTSIDE RECORDS SUMMARY | 2025-03-09 19:35 | XMS_ITS | Encounter Summary ---
Author Organization [facility] Address [address] [place] [address] Care Team Providers Care Poultice Machine Operator Name Role Phone Yonatan Graves DO Primary Care Provider Farida Ortega FISH HATCHERY ASSISTANT Unavailable [phone] Source Comments This information has been disclosed [...] release of HIV test results or diagnoses. [id number] Encounter Details Date Type Department Care Team (Late st Contact Info) Description 03/08/2025 Telephone [facility] Liver Transplant at [address] [place] [phone] Tresa Reilly MA Social History Tobacco [...] Notes * Tresa Reilly MA - 03/08/2025 11:21 AM EDT Reached out to patient to advise her that her lab orders were faxed successfully to [facility] outpatient lab. Patient stated that she would go and get her labs drawn right now. * Tresa Reilly MA - 03/08/2025 10:46 AM EDT Faxed active orders to [facility] outpatient Lab. Orders faxed successfully. documented in this encounter Plan of Treatment Not on file documented as of this encounter Visit Diagnoses Not on filedocumented in this encounter Additional Health Concerns Assessment Noted Time PHQ-9 Depression Total Score: 13 025 2:00 PM EDT documented as of this encounter Care Teams Poultice Machine Operator Relationship Specialty Start Date End Date Yonatan Graves DO [address] [place] [address] PCP - General 02/01/25 Farida Ortega, HARLEEN [address] [place] [address] Referring Physician Gastroenterology 09/02/23 documented as of this encounter
--- OUTSIDE RECORDS SUMMARY | 2025-03-09 19:35 | XMS_ITS | Encounter Summary ---
Author Organization [facility] Address [address] [place] [address] Care Team Providers Care Kier Pleater Name Role Phone Kierra Guajardo MD Primary Care Provide r Reason for Visit * Reason Onset Date Comments Med Refill 02/11/2025 Encounter Details Date Type Department Care Team (Late st Contact Info) Description 02/11/2025 Refill [facility] [address] [place] [address] Pao Hanley, FOOD SCIENTIST [address] [facility] [address] [place] [address] Yeast infection (Primary Dx) Social History Tobacco Use Types Packs/Day Years Used Date Smoking Tobacco: Former Cigarettes Smokeless Tobacco: Never Alcohol Use Standard Drinks/Week Comments Not Currently 0 (1 standard drink = 0.6 oz pure alcohol) 4-6 wine coolers daily for several years [facility] Utilities Answer Date Recorded In the past 12 months has [facility], [facility], or water [employer] threatened to shut off services in your [...] medical care, and heating? Patient declined 08/05/2023 [facility] - Occupational Stress Questionnaire Answer Date Recorded [...] GED or equivalent No 08/05/2023 Preferred Language Grenadian 08/05/2023 PHQ-2 Answer Date Recorded Retired PHQ-9: Brief Depression Severity Measure Score 2 08/05/2023 Comments No Sex and Gender Information Value Date Recorded Sex Assigned at Not on file Legal Sex Female 10:56 AM EDT Gender Identity Not on file Sexual Orientation Not on file documented as of this encounter Miscellaneous Notes * Telephone Encounter - Alecia Kelsey MA - 02/11/2025 9:49 AM EDT Patient called on antibiotics for 12 weeks due to prepping for transplant states her transplant team asked her to call to get diflucan due to yeast infections tolerates well pt states cream doesn't do as well Patient states she has checked with her transplant team and its ok for Diflucan documented in this encounter Plan of Treatment Not on file documented as of this encounter Visit Diagnoses Diagnosis Yeast infection- Primary documented in this encounter Additional Health Concerns Assessment Noted Time PHQ-2 Depression Total Score: 2 08/05/19 9:47 AM EST documented as of this encounter Care Teams Kier Pleater Relationship Specialty Start Date End Date Kierra Guajardo MD [address] [place] [address] PCP - General Internal Medicine 10/23/23 documented as of this encounter
--- OUTSIDE RECORDS SUMMARY | 2025-03-09 19:35 | XMS_ITS | Encounter Summary ---
Author Organization [facility] Address [address] [place] [address] Care Team Providers Care Top Lift Scourer Name Role Phone Farida Ortega LIVESTOCK SALES REPRESENTATIVE Unavailable [phone] Source Comments This information has been disclosed [...] release of HIV test results or diagnoses. [id number] Health Encounter Details Date Type Department Care Team (Late st Contact Info) Description 01/21/2025 Chart Note [facility] Kidney Transplant at [address] [phone] Niya Tripp Patient is financially cleared to continue liver transplant evaluation Social History Tobacco Use [...] encounter Progress Notes * Niya Tripp - 01/21/2025 12:01 PM EDT Patient is financially cleared to continue liver transplant evaluation with new insurance. Evaluation for patient/donor can be done anywhere in network *No direct donor work up until patient is approved for txp documented in this encounter Plan of Treatment Not on file documented as of this encounter Visit Diagnoses Not on filedocumented in this encounter Additional Health Concerns Assessment Noted Time PHQ-9 Depression Total Score: 13 025 2:00 PM EDT documented as of this encounter Care Teams Top Lift Scourer Relationship Specialty Start Date End Date Farida Ortega, LIVESTOCK SALES REPRESENTATIVE [address] [address] Referring Physician Gastroenterology 09/02/23 documented as of this encounter
--- OUTSIDE RECORDS SUMMARY | 2025-03-09 19:35 | XMS_ITS ---
Author Organization [facility] Address [address] [place] [address] Care Team Providers Care Chief Media Officer Name Role Phone IrineoYonatan kramer Joseph LLANES Primary Care Provider Farida Ortega SHAREPOINT ADMIN Unavailable [phone] Transplant Episode Liver Candidate [facility] ([place], [place]) - [facility] Evaluation began on 12/20/2024 Marked as Active on 12/20/2024 Liver CoordinatorAbdullahi Cano RN Phone: N/A Fax: N/A Email: N/A Scores Score Value Updated Expires Exceptions/Lorena sons CPRA Not available UNOS MELD Not available MELD (Calc) 14 02/07/2025 [place] Organ Diagnosis Organ Primary 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 Care Team Name Role Phone Fax Email Abdullahi Cano RN Liver Coordinator N/A N/A N/A Mario Ramirez MD Referring Physician [phone] N/A Mery Stroud RN Txp Pre Coordinator N/A N/A N/A ASIM Selby, MUSIC EDUCATION ADJUNCT PROFESSOR Txp Trimmer Tailer N/A N/A N/A Events Pre-Transplant Referred: 08/31/2024 Evaluation began: 12/20/2024 Committee: 03/08/2025 Pending Checklist Tasks (Due on or before 04/08/2025) Name Due Date Attached Appoint ment Social Work Consult 03/20/2025 Appointments (02/06/2025 - 04/08/2025) When With Visit Type Description 02/07/2025 Txp Terrie Boyle Established Patient 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
--- OUTSIDE RECORDS SUMMARY | 2025-03-09 19:36 | XMS_ITS | Encounter Summary ---
Author Organization [facility] Address [address] [place] [address] Care Team Providers Care Strike Planning Applications Name Role Phone Yonatan Graves DO Primary Care Provider Farida Ortega TRACK REPAIR LABORER Unavailable [phone] Source Comments This information has been disclosed [...] release of HIV test results or diagnoses. [id number] Health Encounter Details Date Type Department Care Team (Late st Contact Info) Description 02/10/2025 Chart Note [facility] Liver Transplant at [address] [place] [phone] Abdullahi Cano RN Multi-disciplinary Hepatobiliary Case Conference [...] Progress Notes * Abdullahi Cano RN - 02/10/2025 7:12 AM EDT Multi-disciplinary Hepatobiliary Case Conference Review: Mindy Wade is a 35 y.o.female reviewed today at the Hepatobiliary Multidisciplinary Tumor Board.The patient's history, imaging and pathology were reviewed today in the presence of representativesfrom Transplant Surgery, Surgical Oncology, Medical Oncology, Radiation Oncology, Diagnostic Radiology, Interventional Radiology and Pathology. Diagnosis: liver lesions Case Presented by Dr. Ramirez. Reviewed the following imaging: MRI ABD 02/08/2025. 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 Currently in evaluation for possible LDLT. Please review liver lesions on latest MRI. AFP 3.4. The recommendations from this multidisciplinary discussion was for: No additional testing needed prior to transplant. Proceed with transplant once patient has completed TB treatment. *This document represents the recommendations of the [...] Noted Time PHQ-9 Depression Total Score: 13 0515/2 025 2:00 PM EDT documented as of this encounter Care Teams Strike Planning Applications Relationship Specialty Start Date End Date Yonatan Graves DO [address] [place] [address] PCP - General 02/01/25 Farida Ortega, TRACK REPAIR LABORER [address] [place] [address] Referring Physician Gastroenterology 09/02/23 documented as of this encounter
--- OUTSIDE RECORDS SUMMARY | 2025-03-09 19:36 | XMS_ITS | Encounter Summary ---
Author Organization [facility] Address [address] [place] [address] Care Team Providers Care Heat Treat Puller Name Role Phone Yonatan Graves DO Primary Care Provider Farida Ortega CAR CUSTOMIZER Unavailable [phone] Source Comments This information has been disclosed [...] release of HIV test results or diagnoses. [id number] Encounter Details Date Type Department Care Team (Late st Contact Info) Description 02/10/[address] [facility] Liver Transplant at [address] [place] [phone] Abdullahi Cano RN Social History Tobacco [...] Notes * Abdullahi Cano RN - 02/10/2025 8:13 AM EDT Spoke with patient and reviewed her recent imaging and labs. Patient has no new complaints and is still taking her TB medication as prescribed. documented in this encounter Plan of Treatment Not on file documented as of this encounter Visit Diagnoses Not on filedocumented in this encounter Additional Health Concerns Assessment Noted Time PHQ-9 Depression Total Score: 13 025 2:00 PM EDT documented as of this encounter Care Teams Heat Treat Puller Relationship Specialty Start Date End Date Yonatna Graves DO [address] [place] [address] PCP - General 02/01/25 Farida Ortega NP [address] [place] [address] Referring Physician Gastroenterology 09/02/23 documented as of this encounter
--- OUTSIDE RECORDS SUMMARY | 2025-03-09 19:36 | XMS_ITS | Encounter Summary ---
Author Organization [facility] Address [address] [place] [address] Care Team Providers Care Sales Account Associate Name Role Phone Yonatan Graves DO Primary Care Provider Farida Ortega BANQUET WAITER/WAITRESS Unavailable [phone] Source Comments This information has been disclosed [...] release of HIV test results or diagnoses. [id number] Encounter Details Date Type Department Care Team (Late st Contact Info) Description 02/11/2025 Telephone [facility] Liver Transplant at [address] [place] [phone] Abdullahi Cano RN Social History Tobacco [...] Progress Notes * Abdullahi Cano RN - 02/11/2025 8:23 AM EDT Returned call to patient to discuss paperwork that needs to be completed. No answer. Left a voicemail with my e mail address and fax number for paperwork to be sent. documented in this encounter Plan of Treatment Not on file documented as of this encounter Visit Diagnoses Not on filedocumented in this encounter Additional Health Concerns Assessment Noted Time PHQ-9 Depression Total Score: 13 025 2:00 PM EDT documented as of this encounter Care Teams Sales Account Associate Relationship Specialty Start Date End Date Yonatan Graves DO [address] [place] [address] PCP - General 02/01/25 Farida Ortega, BANQUET WAITER/WAITRESS [address] [place] [address] Referring Physician Gastroenterology 09/02/23 documented as of this encounter
--- NOTE | 2025-03-09 19:51 | HMH.EDGENADL ---
Discharge Plan Disposition Chief Complaint: Cough Prescriptions Prescriptions: No Action carvedilol 3.125 mg tablet PO ipratropium-albuterol 0.5 mg-3 mg(2.5 mg base)/3 mL solution for nebulization 3 ml inhalation ONCE Qty: 3 0RF albuterol sulfate 2.5 mg /3 mL (0.083 %) solution for nebulization 2.5 mg inhalation Q6H Qty: 75 0RF albuterol sulfate 90 mcg/actuation HFA aerosol inhaler 1 inh inhalation QID PRN (Reason: shortness of breath or wheezing) Qty: 6.7 1RF benzonatate 100 mg capsule 100 mg PO TID PRN (Reason: cough) Qty: 30 0RF gabapentin 800 mg tablet 800 mg PO DAILY furosemide 20 mg tablet 20 mg PO DAILY spironolactone 50 mg tablet 150 mg PO BID Patient Comments: TAKE 3 TABLETS BY MOUTH TWICE DAILY Referrals Follow up/Referrals: Provider,Referral, MD [Primary Care Provider, Medical] - See instructions Instructions Patient Instructions: Cough Print Language Print Language: Luxembourgish Discharge ED Provider: Maria Elena Sevilla General Adult HPI General Chief complaint: Cough Stated complaint: SOA,cough,ashma attacks,weakness Time Seen by Provider: 03/09/25 19:35 Mode of Arrival: Ambulatory Source of Information: Patient Description of Symptoms (Recalled from ER Triage Doc. by RN): Pt presents with c/o persistant cough, shortness of breath following cough fits, and exacerbation of asthma due to the cough. Pt is due to have a living liver transplant next month, and was placed on Isoniazid as a proactive treatment for possible latent TB. History of Present Illness HPI narrative: 35-year-old female presents the emergency department with subjective fever and chills chest tightness productive cough for 1 week, denies any any overt chest pain, has shortness of breath at times, denies nausea vomiting abdominal pain no nausea, no vomiting, no urinary type symptomatology, patient is a non-smoker, former alcohol use, denies any other illicit drug use. Patient has a complex medical history consisting of currently on the transplant list at [facility] for liver transplant (living donor), nonalcoholic cirrhosis, in the setting of liver tumors , she is been recently started on isoniazid and prifitn since January 2025, other past medical history consistent with esophageal varices, asthma, neuropathy. Initial triage vitals unremarkable. Of note patient was attempted at home inhalers with little no relief of her symptomatology. Please note that above description of symptoms, in this electronic medical record under categorization of recalled from ER triage doctor by RN are reflective of an initial nursing assessment, however, is not reflective of my full history and physical exam that was personally taken and clarified. Consequentially, this preceding description of symptoms, which may include the patient's categorized chief complaint in the EMR, do not reflect my personal clinical impression, and the ultimate description of history of present illness and patient stated complaints should be deferred to this section of the note. Unless stated otherwise or congruent with this section of the note, additional signs, symptoms, or incongruence should be interpreted as inaccurate with my clinical impression. Onset (ago): week(s) Related Data Home Medications ?Medication ?Instructions ?Recorded ?Confirmed furosemide 20 mg tablet 20 mg PO DAILY 05/19/24 02/11/25 gabapentin 800 mg tablet 800 mg PO DAILY 05/19/24 02/11/25 spironolactone 50 mg tablet 150 mg PO BID 05/19/24 02/11/25 carvedilol 3.125 mg tablet mg PO 10/18/24 02/11/25 Previous Rx's ?Medication ?Instructions ?Recorded albuterol sulfate 2.5 mg/3 mL 2.5 mg (3 mL) inhalation Q6H #75 mL 02/11/25 (0.083 %) solution for nebulization albuterol sulfate 90 mcg/actuation 1 inh inhalation QID PRN shortness 02/11/25 aerosol inhaler of breath or wheezing #6.7 grams benzonatate 100 mg capsule 100 mg PO TID PRN cough #30 caps 02/11/25 Allergies Allergy/AdvReac Type Severity Reaction Status Date / Time Penicillins (PENICILLINS) Allergy Mild rash Verified 02/11/25 11:22 [facility] Disclaimer: The information contained in this section may have been updated after the patient was seen, as this information can be updated by other users. 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 Sore throat (viral) Autoimmune hepatitis Cirrhosis Kidney stone Anxiety Seizure disorder Urinary tract infection Kidney stone Asthma Surgical History History of tonsillectomy History of appendectomy Family History Family/Other No significant family history Social History Smoking Status: Never smoker alcohol intake: never current occupational status: other Travel in the last 8 weeks?: None Have you lived/traveled outside US in past 30 days?: No Contact w/someone who lives/traveled outside US past 30 days?: No Exposure to someone with infectious disease in past 14 days?: No Do you have a fever (greater than 100.4 F or 38 C)?: No Have you tested positive for COVID-19?: No Exposed to someone with COVID-19 in past 14 days?: No Do you have a sore throat?: No Do you have a cough?: No Do you have any weakness?: No Do you have any diarrhea?: No Are you experiencing any unusual bleeding?: No Do you have any muscle aches/pain?: No Do you have any abdominal pain?: No Are you experiencing loss of taste or smell?: No ROS Obtained: Yes All systems reviewed & no additional complaints except as documented Physical Exam General General appearance: alert and in no apparent distress Head Head exam: atraumatic and normocephalic Eye Eye exam: Present PERRL and EOMI ENT ENT exam: Present mucous membranes moist Neck Neck exam: Present normal inspection Chest Chest inspection: Present normal inspection and symmetric chest wall rise Respiratory Respiratory exam: Present wheezes and other (Mild wheezes as well as mild to moderate crackles/Rales throughout bilateral lung lane); Absent normal lung sounds bilaterally or respiratory distress Cardiovascular Cardiovascular exam: Present regular rate and normal rhythm Abdominal Exam Abdominal exam: Present soft; Absent tenderness, guarding or rebound Extremities Exam Extremities exam: Present normal inspection Neurological Exam Neurological exam: Present alert and oriented X3 Psychiatric Psychiatric exam: Present normal affect Skin Skin exam: Present warm and dry Medical Decision Making Medical Records Medical records reviewed: Yes I reviewed the patient's medical records. Screening: Per USPSTF and CDC recommendations, given the prevalence of disease in our region, it is our hospital?s policy to screen for HIV and viral Hepatitis for all patients aged 18 and over and those with ongoing risk factors. Ben Inquiry Pt receiving controlled substance: No Ben was queried for this patient: No Vital Signs: 03/09/25 19:17 03/09/25 19:24 Temperature 97.9 F 97.9 F Temperature Source Temporal Artery Scan Temporal Artery Scan Pulse Rate 89 Pulse Rate [Right] 89 Respiratory Rate 18 22 Blood Pressure 115/61 Blood Pressure [Right Arm] 115/61 Blood Pressure Mean [Right Arm] 79 Blood Pressure Source Automatic Cuff Blood Pressure Source [Right Arm] Automatic Cuff Blood Pressure Position [Right Arm] Sitting 02 Sat by Pulse Oximetry 97 98 Oxygen Delivery Method Room Air Room Air Lab Data Lab results reviewed: Yes I reviewed the patient's lab results. Lab Results 03/09/25 20:20: SARS-CoV-2 (PCR) Not detected, Influenza A Untype (PCR) Not detected, Influenza Type B (PCR) Not detected 03/09/25 20:35: WBC 2.3 L, RBC 3.58 L, Hgb 11.5 L, Hct 34.1 L, MCV 95.3, MCH 32.1 H, MCHC 33.7, RDW 14.3, Plt Count 66 L, MPV 11.0 H, Neut % (Auto) 26.6 L, Lymph % (Auto) 30.0, [place] % (Auto) 15.5 H, Eos % (Auto) 26.6 H, Baso % (Auto) 1.3, Neut # (Auto) 0.6 L*, Lymph # (Auto) 0.7, [place] # (Auto) 0.4, Eos # (Auto) 0.6 H, Baso # (Auto) 0.0, Total Counted 100, Neutrophils % (Manual) 36 L, Lymphocytes % (Manual) 21, Monocytes % (Manual) 9, Eosinophils % (Manual) 34 H, Platelet Estimate Slight decrease, RBC Morphology Normal, PT 12.9 H, INR 1.18 H, APTT 26.8, Sodium 137, Potassium 3.5, Chloride 108 H, Carbon Dioxide 23, Anion Gap 9.5, BUN 6 L, Creatinine 0.50 L, Estimated Creat Clear 163, Estimated GFR 140, Est GFR ( Amer) 170, Glucose 80, Calcium 8.8, Total Bilirubin 1.9 H, AST 57 H, ALT 38, Alkaline Phosphatase 123, Troponin I < 0.01, NT-Pro-B Natriuret Pep 55.6, Total Protein 6.8, Albumin 3.8, Globulin 3.0, Albumin/Globulin Ratio 1.3 03/09/25 20:35 03/09/25 20:35 Orders (Tests/Meds): ORDERS Category Date Time Status XR chest portable Stat Exams 03/09/25 19:59 Taken Complete Blood Count Auto Diff Stat Lab 03/09/25 20:35 Completed Comprehensive Metabolic Panel Stat Lab 03/09/25 20:35 Completed NT Pro Brain Natriuretic Pep. Stat Lab 03/09/25 20:35 Completed PT INR [Prothrombin Time INR] Stat Lab 03/09/25 20:35 Completed PTT [Activated Partial Thrombo Time] Stat Lab 03/09/25 20:35 Completed Rapid PCR Covid and Flu A/B Stat Lab 03/09/25 20:20 Completed Troponin I Q3H Lab 03/09/25 23:00 Ordered Troponin I Q3H Lab 03/10/25 02:00 Ordered Troponin I Stat Lab 03/09/25 20:35 Completed Medical Decision Narrative: 35-year-old female presents to the emergency department with cough congestion subjective fever and chills for 1 week, with shortness of breath, differential diagnose include but not limited to, pneumonia, acute URI, acute bronchitis, tuberculosis, pleural effusion, asthma exacerbation, COPD exacerbation, pneumonitis, cardiac arrhythmia electrolyte disturbance among others. Will obtain basic laboratory studies, PT/INR PTT, proBNP, PCR COVID and flu, troponin, EKG and chest x-ray. Neutropenia 2.3, erythrocyte opinion 3.5, hemoglobin is decreased 11.5 and hematocrit is decreased 34.1 thrombocytopenia 66, which appears somewhat in line with the patient's baseline, patient did start immune suppressive medications with isoniazid and Priftin COVID-19 is negative influenza is negative via PCR CMP is notable for elevated total bilirubin at 1.9, AST is minimally elevated 57, which appears in line with the patient's laboratory studies that were drawn yesterday, as well as the patient's leukocytes yesterday being 3.1, PTT within normal limits. PTT is elevated at 12.9, INR is elevated 1.18 CMP is noted for normal troponin normal proBNP. I discussed this patient case with the attending physician Dr. Sevilla at shift change, she will be assuming amended the patient's care/workup, disposition is pending chest x-ray read. Critical Care Critical Care Time Critical Care Time: No
--- NOTE | 2025-03-09 19:59 | XR_ITS ---
PROCEDURE INFORMATION: Exam: XR Chest Exam date and time: 03/09/2025 8:54 PM Age: 35 years old Clinical indication: Shortness of breath; Additional info: SOA, chest tightness, cough HX latent tb on meds TECHNIQUE: Imaging protocol: Radiologic exam of the chest. Views: 1 view. COMPARISON: CR XR RIBS LT MIN 3V W CXR1V 05/19/2024 10:15 AM FINDINGS: Lungs: Unremarkable. No consolidation. Pleural spaces: Unremarkable. No pleural effusion. No pneumothorax. Heart/Mediastinum: Unremarkable. No cardiomegaly. Bones/joints: Unremarkable. IMPRESSION: No acute findings.
--- NOTE | 2025-03-09 20:23 | ECG_ITS ---
APPROVED REPORT Exam: Resting ECG HR:78 bpm ECG Measurements Heart Rate 78 AXES NH 114 P 71 QRSd 88 QRS 76 QT 405 T 60 QTc 439 Conclusion SINUS RHYTHM WITH SHORT NH INTERVAL MODERATE ST DEPRESSION [0.05+ mV ST DEPRESSION] ABNORMAL ECG UNCONFIRMED REPORT Electronically signed by : MELODIE MARTE, 03/10/2025 06:37:11
[2025-03-09 20:39] LABS: Coronavirus 19, PCR Not Detected (NotDetected); Influenza A, PCR Not Detected (NotDetected); Influenza B, PCR Not Detected (NotDetected)
[2025-03-09 20:50] LABS: Hematocrit 34.1 % (37.0-47.0); Hemoglobin 11.5 g/dL (12.2-16.2); Immature Granulocytes % 0 %; Mean Corpuscular HGB Conc 33.7 g/dL (31.8-35.4); Mean Corpuscular Hemoglobin 32.1 pg (27.0-31.2); Mean Corpuscular Volume 95.3 fl (81-99); Nucleated Red Blood Cells % 0 %; Platelet Count 66 K/mm3 (142-424); Red Blood Count 3.58 M/mm3 (4.20-5.40); Red Cell Distribution Width-SD 49.7 fL; White Blood Count 2.3 K/mm3 (4.8-10.8)
[2025-03-09 21:10] LABS: Activated Partial Thrombo Time 26.8 seconds (22.8-30.6); Alanine Aminotransferase 38 U/L (12-78); Albumin Level 3.8 g/dl (3.5-5.0); Albumin/Globulin Ratio 1.3 (1.1-1.8); Alkaline Phosphatase 123 U/L (38-126); Anion Gap 9.5 mEq/L (5-15); Aspartate Amino Transferase 57 U/L (14-36); Bilirubin,Total 1.9 mg/dl (0.2-1.3); Blood Urea Nitrogen 6 mg/dl (7-17); Calcium 8.8 mg/dl (8.4-10.2); Carbon Dioxide 23 mmol/L (22.0-30.0); Chloride 108 mmol/L (98-107); Creatinine Clearance Estimated 163 mL/min (50-200); Creatinine,Serum 0.50 mg/dl (0.52-1.04); Estimated Glomerular Filt Rate 140 ml/min (>60); GFR (African American) 170 ML/MIN (>60); Globulin 3.0 g/dL (1.3-3.2); Glucose 80 mg/dl (74-100); Potassium 3.5 mmoL/L (3.5-5.1); Sodium 137 mmol/L (136-145); Total Protein,Serum 6.8 g/dl (6.3-8.2)
[2025-03-09 21:20] LABS: INR 1.18 (0.9-1.1); NT Pro Brain Natriuretic Pep. 55.6 pg/mL (0-125); Prothrombin Time 12.9 seconds (10.1-12.5)
[2025-03-09 21:34] LABS: Troponin I < 0.01 ng/ml (0.00-0.034)
[2025-03-09 21:55] LABS: Total Cells Counted 100
[2025-03-09 21:56] LABS: RBC Morphology Normal
[2025-03-09] MEDS: AZITHROMYCIN 250MG TABLET 500 MG PO (23:07)
[2025-03-09 23:13] VITALS: BP 115/62; PULSE 82; RESP 18; TEMP 36.7; O2SAT 96
== END 2025-03-09 23:14 | disposition home or self-care (01) ==
PROVIDERS: Physician Assistant; Emergency Provider Student in an Organized Health Care Education/Training Program
DX: R06.02 Shortness of breath (principal); R06.2 Wheezing; R05.9 Cough, unspecified
CPT/HCPCS: 71045; 80053; 83880; 84484; 85007; 85025; 85610; 85730; 87636; 93005; 99284

== ENCOUNTER 2025-05-12 09:59 | Outpatient (CLI) | payer MEDICARE, SELFPAY ==
[2025-05-12 10:32] LABS: Hematocrit 26.4 % (37.0-47.0); Hemoglobin 8.1 g/dL (12.2-16.2); Immature Granulocytes % 0.9 %; Mean Corpuscular HGB Conc 30.7 g/dL (31.8-35.4); Mean Corpuscular Hemoglobin 30.1 pg (27.0-31.2); Mean Corpuscular Volume 98.1 fl (81-99); Nucleated Red Blood Cells % 0 %; Platelet Count 188 K/mm3 (142-424); Red Blood Count 2.69 M/mm3 (4.20-5.40); Red Cell Distribution Width-SD 65.8 fL; White Blood Count 5.7 K/mm3 (4.8-10.8)
[2025-05-12 10:51] LABS: Alanine Aminotransferase 51 U/L (12-78); Albumin Level 3.1 g/dl (3.5-5.0); Alkaline Phosphatase 402 U/L (38-126); Anion Gap 10.7 mEq/L (5-15); Aspartate Amino Transferase 37 U/L (14-36); Bilirubin,Direct 0.6 mg/dl (0.0-0.4); Bilirubin,Indirect 0.6 mg/dL (0.0-0.9); Bilirubin,Total 1.2 mg/dl (0.2-1.3); Bilirubin,Unconjugated 0.5 mg/dL (0.0-1.1); Blood Urea Nitrogen 16 mg/dl (7-17); Calcium 8.7 mg/dl (8.4-10.2); Carbon Dioxide 23 mmol/L (22.0-30.0); Chloride 102 mmol/L (98-107); Creatinine,Serum 0.40 mg/dl (0.52-1.04); Estimated Glomerular Filt Rate 182 ml/min (>60); GFR (African American) 220 ML/MIN (>60); Glucose 69 mg/dl (74-100); Phosphorous 3.1 mg/dl (2.5-4.5); Potassium 4.7 mmoL/L (3.5-5.1); Sodium 131 mmol/L (136-145); Total Protein,Serum 5.0 g/dl (6.3-8.2)
[2025-05-14 15:11] LABS: Tacrolimus (FK506), Blood 4.1 ng/mL (5.0-20.0)
== END 2025-05-12 23:59 | disposition home or self-care (01) ==
LOC: LAB 09:59
PROVIDERS: PCP Internal Medicine; Visit Provider Internal Medicine
DX: Z94.4 Liver transplant status (principal)
CPT/HCPCS: 80069; 80076; 80197; 85025

== ENCOUNTER 2025-05-23 10:05 | Outpatient (CLI) | payer MEDICARE, SELFPAY ==
--- OUTSIDE RECORDS SUMMARY | 2025-04-04 07:58 | XMS_ITS | Continuity of Care Document ---
Author Organization [facility] Phone Care Team Providers Care Hat Brusher Machine Name Role Phone GEOFF RENDON Primary Care [email or web address] [email or web address] NICK WHITE Admitting NICK WHITE Primary Attending ALLERGIES AND ADVERSE REACTIONS ALLERGIES AND ADVERSE REACTIONS Code System Allergy Substance Adverse Reaction Date Reaction (Severity) Comment Status Reported By [place] [id number] SNOMED CT Penicillins Rash active Patient [id number] on October 28, 2012 7:14:33 PM UTC TAPE (Free Text Allergy) Rash active Patient [id number] on October 28, 2012 7:14:35 PM UTC FAMILY HISTORY RELATION: Father Status: LIVING SNOMED-CT Diagnosis Age At Onset Cirrhosis of liver RELATION: Mother Status: LIVING SNOMED-CT Diagnosis Age At Onset Information not available RESULTS Patient: GERRY Luna Date of : January [birth year] LABORATORY RESULTS ORDER 200: COMP METABOLIC PA ANN MARIE (LOINC: [id number]) ORDER DATE: March 31, 2025 6:33:00 PM UTC Specimen Source: PLASMA Specimen Type: Plasma specim en PERFORMING LAB: [address] [id number] Result Comment: Final Result Date: March 31, 2025 7:24:00 PM UT (TECH: ARR) LOINC TEST FLAG RESULT REFERENCE RANGE UPDA JHON BY 2951-2 Sodium [Moles/volume ] in Serum or Plasma N 142 mmol/L 136 mmol/L - 145 mmol/L March 31, 2025 7:24:00 PM UTC (TECH: ARR) 2823-3 Potassium [Moles/volume] in Serum or Plasma N 3.7 mmol/L 3.6 mmol/L - 5.0 mmol/L March 31, 2025 7:24:00 PM UTC (TECH: ARR) 5-0 Chloride [Moles/volu me] in Serum or Plasma N 106 mmol/L 98 mmol/L - 107 mmol/L March 31, 2025 7:24:00 PM UTC (TECH: ARR) 2028-02 Carbon dioxide, tota l [Moles/volume] in Serum or Plasma N 28.7 mmol/L 21.0 mmol/L - 32.0 mmol/L March 31, 2025 7:24:00 PM UTC (TECH: ARR) 09875-4 Anion gap in Blood N 11.0 O ct2024 7:24:00 PM UTC (TECH: ARR) 2345-7 Glucose [Mass/volume ] in Serum or Plasma N 120 mg/dl 70 mg/dl - 120 mg/dl March 31, 2025 7:24:00 PM UTC (TECH: ARR) 6299-2 Urea nitrogen [Mass/volume] in Blood N 9 mg/dL 7 mg/dL - 18 mg/dL March 31, 2025 7:24:00 PM UTC (TECH: ARR) 18338-8 Creatinine [Moles/volume] in Blood N 0.8 mg/dL 0.6 mg/dL - 1.3 mg/dL March 31, 2025 7:24:00 PM UTC (TECH: ARR) 93745-5 Glomerular filtratio n rate/1.73 sq M.predicted by Creatinine-based formula (MDRD) N 98 mlpermin 60 mlpermin March 31, 2025 7:24:00 PM UTC (TECH: ARR) 72481-5 Osmolality of Serum or Plasma by calculated by sum of electrolytes N 295 mosm/kg 275 mosm/kg - 301 mosm/kg March 31, 2025 7:24:00 PM UTC (TECH: ARR) 2885-2 Protein [Mass/volume ] in Serum or Plasma N 6.8 g/dl 6.4 g/dl - 8.2 g/dl March 31, 2025 7:24:00 PM UTC (TECH: ARR) 1751-7 Albumin [Mass/volume ] in Serum or Plasma L 3.2 g/dl 3.4 g/dl - 5.0 g/dl March 31, 2025 7:24:00 PM UTC (TECH: ARR) 2336-6 Globulin [Mass/volum e] in Serum N 3.6 March 31, 2025 7:24:00 PM UTC (TECH: ARR) 1759-0 Albumin/Globulin [Ma ss Ratio] in Serum or Plasma N 0.9 0.7 - 2 March 31, 2025 7:24:00 PM UTC (TECH: ARR) 03414-1 Calcium [Mass/volume ] in Serum or Plasma N 9.0 mg/dl 8.5 mg/dl - 10.5 mg/dl March 31, 2025 7:24:00 PM UTC (TECH: ARR) 1975-2 Bilirubin.total [Mass/volume] in Serum or Plasma H 2.20 mg/dL 0.10 mg/dL - 1.00 mg/dL March 31, 2025 7:24:00 PM UT (TECH: ARR) 1920-8 Aspartate aminotransferase [Enzymatic activity/volume] in Serum or Plasma H 49 U/L 0 U/L - 37 U/L March 31, 2025 7:24:00 PM UTC (TECH: ARR) 1742-6 Alanine aminotransferase [Enzymatic activity/volume] in Serum or Plasma N 40 U/L 0 U/L - 65 U/L March 31, 2025 7:24:00 PM UT (TECH: ARR) 6768-6 Alkaline phosphatase [Enzymatic activity/volume] in Serum or Plasma H 146 U/L 46 U/L - 116 U/L March 31, 2025 7:24:00 PM UT (TECH: ARR) ORDER 300: CBC NO DIFF HEMOG LINSEY (LOINC: [id number]) ORDER DATE: March 31, 2025 6:33:00 PM UT Specimen Source: EDTA Specimen Type: Blood specime n with EDTA PERFORMING LAB: [address] [id number] Result Comment: Final Result Date: March 31, 2025 6:49:00 PM UT (TECH: KAC) LOINC TEST FLAG RESULT REFERENCE RANGE UPDA JHON BY 6690-2 Leukocytes [#/volume] in Blood by Automated count L 3.2 K/ul 4.0 K/ul - 10.5 K/ul March 31, 2025 6:49:00 PM UTC (PA Semi: [place]) 789-8 Erythrocytes [#/volume] in Blood by Automated count L 3.7 M/mm3 4.2 M/mm3 - 6.4 M/mm3 March 31, 2025 6:49:00 PM UTC (TECH: [place]) 718-7 Hemoglobin [Mass/volume] in Blood L 11.6 gm/dl 12.5 gm/dl - 16.0 gm/dl March 31, 2025 6:49:00 PM UTC (TECH: [place]) 41743-6 Hematocrit [Volume Fraction] of Blood L 35.9 % 37.0 % - 47.0 % March 31, 2025 6:49:00 PM UTC (PA Semi: [place]) 787-2 Erythrocyte mean corpuscular volume [Entitic volume] by Automated count N 96.5 fl 78 fl - 100 fl March 31, 2025 6:49:00 PM UTC (PA Semi: [place]) 785-6 Erythrocyte mean corpuscular hemoglobin [Entitic mass] by Automated count H 31.2 pg 27 pg - 31 pg March 31, 2025 6:49:00 PM UTC (PA Semi: [place]) 786-4 Erythrocyte mean corpuscular hemoglobin concentration [Mass/volume] by Automated count N 32.3 g/dl 32 g/dl - 36 g/dl March 31, 2025 6:49:00 PM UTC (PA Semi: [place]) 24992-0 Erythrocyte distribution width [Ratio] H 14.3 % 11.5 % - 14.0 % March 31, 2025 6:49:00 PM UTC (TECH: [place]) 777-3 Platelets [#/volume] in Blood by Automated count L 112 K/ul 150 K/ul - 450 K/ul March 31, 2025 6:49:00 PM UTC (PA Semi: [place]) 17165-3 Platelet mean volume [Entitic volume] in Blood by Automated count H 11.0 fl 6 fl - 9.5 fl March 31, 2025 6:49:00 PM UTC (TECH: [place]) ORDER 400: PT PROTHROMBIN TI ME W INR (LOINC: [id number]) ORDER DATE: March 31, 2025 6:33:00 PM UTC Specimen Source: PLASMA Specimen Type: Plasma specim en PERFORMING LAB: [place] [id number] [facility] [id number] Result Comment: Final Result Date: March 31, 2025 7:12:00 PM [facility] (TECH: KAC) LOINC TEST [place] [address]-0 INR in Platelet poor plasma or blood by Coagulation assay N 11.3 SECONDS 9.3 SECONDS - 11.4 SECONDS March 31, 2025 7:12:00 PM [facility] (TECH: [place]) 6301-6 INR in Platelet poor plasma by Coagulation assay H 1.1 Ratio 0.97 Ratio - 1.05 Ratio March 31, 2025 7:12:00 PM [facility] (TECH: KAC) LABORATORY NARRATIVE RESULTS Information is not available RADIOLOGY RESULTS Information is not available PATHOLOGY NARRATIVE RESULTS Information is not available MICROBIOLOGY RESULTS No Micro Labs/Results Exist for Patient BLOOD ADMIN RESULTS Information is not available MEDICATIONS HOME MEDICATIONS Status RXNORM NDC Medication Dose Route Frequency Dates Comments Reported By Updated By Drug Treatment Unknown DISCHARGE MEDICATIONS Status RXNORM NDC Medication Dose Route Frequency Dates Dis pense Data Comments Physician Updated By No Discharge Medication Info rmation Available INPATIENT MEDICATIONS Status RXNORM NDC Medication Dose Route Frequency Rat e Quantity Dates Indication Dispense Data Comments Physician Updated By No Inpatient Medication Info rmation Available SOCIAL HISTORY SOCIAL HISTORY - Smoking Status SNOMED-CT Social History Element Description Effective Dates Offered Cessation Comment Updated By [id number] Historical Tobacco smoking status Former Smoker quit in 2021 [id number] on October 24, 2022 12:42:54 PM [facility] [id number] Historical Tobacco smoking status Current Every Day Smoker 1/2 PPD X 10 YRS [id number] on July 15, 2017 7:45:09 PM [facility] [id number] Historical Tobacco smoking status Current Some Day Smoker [id number] on October 27, 2012 4:02:36 PM [facility] SOCIAL HISTORY - Gender Sex: Female SOCIAL HISTORY - Status : status i nformation is not available Intention in Next Year: intention information is not available SOCIAL HISTORY - Assessments Code System Description Status Date Value of Assessment Updated By Comment Assessment Information is no t available SOCIAL HISTORY - Red Devil Affiliation Red [place] information is not av ailable SOCIAL HISTORY - Legal Sex Legal Sex information is not available SOCIAL HISTORY - Sexual Behavior Sexual Orientation Gender Identity SNOMED-CT Description SNO MED -CT Description Activity Level No of Partners Partner Type UpdatedBy Information is not available SOCIAL HISTORY - Occupation Occupation information is no t available HEALTH CONCERNS Problems Concern Status Health Concern problem infor mation not available. Smoking Status Status Years Used Consumed packs p er day Health Concern smoking histo ry information not available. Family History Concern Status Health Concern family histor y information not available. ENCOUNTERS ENCOUNTER INFORMATION Reason for Visit LABS Admission March 31, 2025 6:04:00 PM [place] [facility] [address] [address] Discharge March 31, 2025 6:04:00 PM [place] D ISCHARGED TO HOME OR SELF CARE ENCOUNTER DIAGNOSES Notes information is not leila ilable. Code System Diagnosis Onset Date Diagnosis information is not available. ABSTRACT DIAGNOSES Code System Diagnosis Updated By Abatement Date Z01.818 ICD10 ENCOUNTER FOR OT HER PREPROCEDURAL EXAMINATION [id number] on April 04, 2025 12:58:08 PM [facility] K70.31 ICD10 ALCOHOLIC CIRRHO SIS OF LIVER WITH ASCITES [id number] on April 04, 2025 12:58:08 PM [facility] A15.9 ICD10 RESPIRATORY TUBE RCULOSIS UNSPECIFIED [id number] on April 04, 2025 12:58:08 PM [facility] Z01.818 ICD10 ENCOUNTER FOR OT HER PREPROCEDURAL EXAMINATION [id number] on April 04, 2025 12:58:08 PM [facility] K70.31 ICD10 ALCOHOLIC CIRRHO SIS OF LIVER WITH ASCITES [id number] on April 04, 2025 12:58:08 PM [facility] A15.9 ICD10 RESPIRATORY TUBE RCULOSIS UNSPECIFIED [id number] on April 04, 2025 12:58:08 PM [facility] CARE TEAM Care Hat Brusher Machine Role GEOFF RENDON Primary Care NICK WHITE Admitting NICK WHITE Primary Attending CARE TEAM CARE licensed embalmer Role on Team Location Telecom Status Start Date End Petr e Updated By JULIETA NARAYANAN PCP normal March 31, 2025 4:00:00 AM [place] March 31, 2025 6:04:00 PM [facility] [id number] on March 31, 2025 6:05:29 PM [facility] CINDY Jensen Attending normal Octo 2024 4:00:00 AM [facility] March 31, 2025 6:04:00 PM [facility] [id number] on March 31, 2025 6:05:29 PM [facility] CINDY Jensen Admitting normal Octo 2024 4:00:00 AM [facility] March 31, 2025 6:04:00 PM [facility] [id number] on March 31, 2025 6:05:29 PM [facility]
--- OUTSIDE RECORDS SUMMARY | 2025-04-11 09:58 | XMS_ITS | Encounter Summary ---
Author Organization [facility] Address [address] [place] [id number] Care Team Providers Care Flatcar Whacker Name Role Phone Yonatan Graves DO Primary Care Provider Farida Ortega [employer]ING OPERATOR Unavailable [phone] Source Comments This information has been disclosed [...] release of HIV test results or diagnoses. [id number] Health Encounter Details Date Type Department Care Team (Latest Contact Info) Description 04/11/2025 10:58 AM EDT - 04/11/2025 11:59 PM EDT Hospital Encounter [facility] [address] [phone] Mario Ramirez MD [address] [place] [address] 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); Alcoholic cirrhosis of liver with [...] this encounter Medications at Time of Discharge acetaminophen (TYLENOL) 325 MG tablet Take 3 tablets (975 mg total) by mouth every 8 hours. 200 tablet 05/03/2025 3:44 PM EST 5 calcium-vitamin D 500 mg-5 mcg (200 unit) per tablet Take 1 tablet by mouth 2 times a day with meals. 60 tablet 2 05/03/2025 3:44 PM EST 5 fluconazole (DIFLUCAN) 200 MG tablet Take 1 tablet (200 mg total) by mouth daily for 30 days. 30 tablet 05/03/2025 3:44 PM EST 5 06/02/20 25 methocarbamoL (ROBAXIN) 500 MG tablet Take 2 tablets (1,000 mg total) by mouth 3 times a day. 180 tablet 05/03/2025 3:44 PM EST 5 mycophenolate (CELLCEPT) 250 mg capsule Take 2 capsules (500 mg total) by mouth 2 times a day. 120 capsule 5 05/03/2025 3:44 PM EST 5 naloxone (NARCAN) 4 mg/actuation [place] Apply 1 spray in one nostril if needed. Call 911. May repeat dose in other nostril if no response in 3 minutes. 2 each 1 5 ondansetron (ZOFRAN-ODT) 8 MG disintegrating tablet Take 1 tablet (8 mg total) by mouth every 8 hours as needed for Nausea. 20 tablet 5 pantoprazole (PROTONIX) 40 MG tablet Take 1 tablet (40 mg total) by mouth daily. 60 tablet 05/03/2025 3:44 PM EST 5 polyethylene glycol (GLYCOLAX) 17 gram/dose powder Mix 1 capful (17 g) in 8 oz of liquid and drink by mouth daily as needed (Constipation). 238 g 05/03/2025 3:44 PM EST 5 senna-docusate (SENNOSIDES-DOCUSAT E SODIUM) 8.6-50 mg per tablet Take 1 tablet by mouth at bedtime as needed for Constipation. 30 tablet 05/03/2025 3:44 PM EST 5 sulfamethoxazole-tr imethoprim (BACTRIM) 400-80 mg per tablet Take 1 tablet by mouth daily. 30 tablet 2 05/03/2025 3:44 PM EST 5 ursodioL (ACTIGALL) 300 mg capsule Take 1 capsule (300 mg total) by mouth 2 times a day. 60 capsule 05/03/2025 3:44 PM EST 5 valGANciclovir (VALCYTE) 450 mg tablet Take 1 tablet (450 mg total) by mouth daily. 30 tablet 2 05/03/2025 3:44 PM EST 5 oxyCODONE (ROXICODONE) 5 MG immediate release tabletIndications:E nd-stage liver disease (CMS-HCC) Take 2 tablets (10 mg total) by mouth every 6 hours as needed for Pain for up to 7 days. 56 tablet 5 05/10/20 25 oxyCODONE (ROXICODONE) 5 MG immediate release tabletIndications:L iving related donor renal transplant,Alcoholi c cirrhosis of liver with ascites (CMS-HCC) Take 2 tablets (10 mg total) by mouth every 6 hours as needed for Pain for up to 7 days. 56 tablet 05/03/2025 3:44 PM EST 5 05/10/20 25 alcohol swabs PadM Use as instructed. 200 each 1 5 04/22/20 apixaban (ELIQUIS) 2.5 mg Tab Take 1 tablet (2.5 mg total) by mouth 2 times a day. 60 tablet 5 04/21/20 apixaban (ELIQUIS) 2.5 mg Tab Take 1 tablet (2.5 mg total) by mouth 2 times a day. 60 tablet 5 04/22/20 aspirin 81 MG chewable tablet Chew 1 tablet (81 mg total) by mouth daily. 30 tablet 11 05/03/2025 3:44 PM EST 5 05/18/20 blood sugar diagnostic (GLUCOSE BLOOD) Str Use to test blood sugar up to 4 times a day. 100 strip 11 5 04/22/20 blood-glucose meter (ACCU-CHEK GUIDE GLUCOSE METER) [facility] Use to test blood sugar up to 4 times a day. 1 each 5 04/22/20 carvediloL (COREG) 3.125 MG tablet Take 1 tablet (3.125 mg total) by mouth 2 times a day with meals. 180 tablet 1 5 05/02/20 25 enoxaparin (LOVENOX) 40 mg/0.4 mL Syrg Inject 0.4 mLs (40 mg total) subcutaneously daily. 12 mL 5 05/02/20 25 famotidine (PEPCID) 20 MG tablet Take 1 tablet (20 mg total) by mouth 2 times a day. 60 tablet 2 5 05/02/20 furosemide (LASIX) 20 MG tablet TAKE 3 TABLETS(60 MG) BY MOUTH TWICE DAILY 540 tablet 1 5 05/03/20 gabapentin (NEURONTIN) 800 MG tablet Take 1 tablet (800 mg total) by mouth 3 times a day. 05/02/20 25 insulin lispro 100 unit/mL InPn Administer insulin with meals per sliding scale: Blood glucose 150-199 mg/dL =2 units, Blood glucose 200-249 mg/dL =4 units, Blood glucose 250-299 mg/dL =7 units, Blood glucose 300-349 mg/dL =10 units, Blood glucose greater than 349 mg/dL = 12 units 15 mL 2 5 10/31/20 25 insulin NPH isoph U-100 human 100 unit/mL (3 mL) InPn Inject 5 Units subcutaneously in the morning and at bedtime. 15 mL 2 5 04/22/20 lancets [facility] Use to test blood sugar up to 4 times a day. 100 each 11 5 04/22/20 lidocaine (LIDODERM) 5 % Place 2 patches onto the skin daily. Apply patch for 12 hours and then remove patch and leave off for 12 hours. 30 patch 5 05/04/20 25 melatonin 3 mg Tab Take 1 tablet (3 mg total) by mouth at bedtime. 30 tablet 05/03/2025 3:44 PM EST 5 05/13/20 25 methocarbamoL (ROBAXIN) 500 MG tablet Take 1 tablet (500 mg total) by mouth 3 times a day. 90 tablet 5 04/22/20 25 ondansetron (ZOFRAN) 4 MG tabletIndications:A lcoholic cirrhosis of liver with ascites (CMS-HCC) Take 1 tablet (4 mg total) by mouth every 8 hours as needed for Nausea. 40 tablet 2 5 04/19/20 25 pantoprazole (PROTONIX) 40 MG tablet Take 1 tablet (40 mg total) by mouth 2 times a day. 60 tablet 5 05/03/20 25 pen needle, diabetic 32 gauge x 5/32 Ndle For use with insulin pen. Use as instructed. 100 each 2 5 04/22/20 predniSONE (DELTASONE) 5 MG tablet Take 4 tablets (20 mg total) by mouth daily. 120 tablet 2 05/03/2025 3:44 PM EST 5 05/17/20 25 pregabalin (LYRICA) 100 MG capsuleIndications: Living related donor renal transplant Take 1 capsule (100 mg total) by mouth 2 times a day for 30 days. 60 capsule 05/03/2025 3:44 PM EST 5 05/17/20 rivaroxaban (XARELTO) 10 mg TabIndications:Deep Vein Thrombosis Prevention Take 1 tablet (10 mg total) by mouth daily. 30 tablet 5 04/22/20 25 spironolactone (ALDACTONE) 50 MG tablet TAKE 3 TABLETS BY MOUTH TWICE DAILY 540 tablet 1 5 04/19/20 25 tacrolimus (PROGRAF) 1 MG capsule Take 10 capsules (10 mg total) by mouth 2 times a day. 600 capsule 5 5 05/03/20 25 tacrolimus (PROGRAF) 1 MG capsule Take 3 capsules (3 mg total) by mouth every morning AND 2 capsules (2 mg total) at bedtime. 600 capsule 5 05/03/2025 3:44 PM EST 5 05/04/20 25 traZODone (DESYREL) 50 MG tablet Take 1 tablet (50 mg total) by mouth at bedtime for 30 days. 30 tablet 05/03/2025 3:44 PM EST 5 05/17/20 25 documented as of this encounter Plan of Treatment Not on file documented as of this encounter Procedures Procedure Name Priority Date/Time Associated Diagnosis Comments DXA BONE DENSITY AXIAL SKELETON Routine 04/11/2025 11:15 AM EDT 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) Alcoholic cirrhosis of liver with ascites (CMS-HCC) documented in this encounter Results * DXA bone density axial skeleton (04/11/2025 11:15 AM EDT) Anatomical Region Laterality Modality L-spine Nuclear Medicine 04/11/2025 11:1 5 AM EDT Impressions 04/11/2025 12:59 PM EDT IMPRESSION: Low bone density, not within the range of osteoporosis by WHO guidelines. FRAX not reported because the patient's age falls outside the FRAX database. Recommendations for followup testing Intervals between BMD testing should be determined according to the clinical status of each patient; typically one year after initiation or change of therapy is appropriate, with longer intervals once therapeutic effect is established. In conditions associated with rapid bone loss, such as glucocorticoid therapy, testing more frequently is appropriate. Report Verified by: Pro Hurst MD at 04/11/2025 12:59 PM EDT Narrative 04/11/2025 12:59 PM EDT EXAM: DXA BONE DENSITY AXIAL SKELETON INDICATION: Osteopenia; 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); Alcoholic cirrhosis of liver with ascites (CMS-HCC) TECHNICAL: Bone mineral density analysis was performed on a [employer] iDXA scanner. ARTIFACTS: None COMPARISON: No prior studies currently available. FINDINGS: Spine (L1-L4): BMD: 0.980 g/cm2 T-score: -1.7 SD Z-score: -1.8 SD Left femoral neck: BMD:0.810 g/cm2 T-score: -1.6 SD Z-score: -1.5 SD Left total hip: BMD: 0.794 g/cm2 T-score: -1.7 SD Z-score: -1.7 SD Right femoral neck: BMD: 0.770 g/cm2 T-score: -1.9 SD Z-score: -1.8 SD Right total hip: BMD: 0.813 g/cm2 T-score: -1.5 SD Z-score: -1.5 SD The following scores are defined as follows: (1) The T-score is a comparison using standard deviation of the patient versus normal healthy controls. (2) The Z-score is a comparison using standard deviation of the patient versus normal controls matched for sex, race and age. Age: 35 years Procedure Note Pro Hurst MD - 04/11/2025 EXAM: DXA BONE DENSITY AXIAL SKELETON INDICATION: Osteopenia; 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);Alcoholic cirrhosis of liver with ascites (CMS-HCC) TECHNICAL: Bone mineral density analysis was performed on a [employer]DX[employer]. ARTIFACTS: None COMPARISON: No prior studies currently available. FINDINGS: Spine (L1-L4): BMD: 0.980 g/cm2 T-score: -1.7 SD Z-score: -1.8 SD Left femoral neck: BMD:0.810 g/cm2 T-score: -1.6 SD Z-score: -1.5 SD Left total hip: BMD: 0.794 g/cm2 T-score: -1.7 SD Z-score: -1.7 SD Right femoral neck: BMD: 0.770 g/cm2 T-score: -1.9 SD Z-score: -1.8 SD Right total hip: BMD: 0.813 g/cm2 T-score: -1.5 SD Z-score: -1.5 SD The following scores are defined as follows: (1) The T-score is a comparison using standard deviation of the patientversus normal healthy controls. (2) The Z-score is a comparison using standard deviation of the patientversus normal controls matched for sex, race and age. Age: 35 years IMPRESSION: Low bone density, not within the range of osteoporosis by WHOguidelines. FRAX not reported because the patient's age falls outside the FRAXdatabase. Recommendations for followup testing Intervals between BMD testing should be determined according to theclinical status of each patient; typically one year after initiation orchange of therapy is appropriate, with longer intervals once therapeuticeffect is established. In conditions associated with rapid bone loss, such as glucocorticoidtherapy, testing more frequently is appropriate. Report Verified by: Pro Hurst MD at 04/11/2025 12:59 PM EDT Mario Ramirez MD IMG DEXA ORDERABLES Final Res ult documented in this encounter Visit Diagnoses Diagnosis 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) Alcoholic cirrhosis of liver with ascites (CMS-HCC) documented in this encounter Additional Health Concerns Assessment Noted Time PHQ-9 Depression Total Score: 13 11/04/ 025 2:00 PM EDT documented as of this encounter Care Teams Flatcar Whacker Relationship Specialty Start Date End Date Yonatan Graves DO [address] [place] [address] PCP - General 02/01/25 Farida Ortega, HARLEEN [address] [place] [address] Referring Physician Gastroenterology 09/02/23 documented as of this encounter
--- OUTSIDE RECORDS SUMMARY | 2025-04-11 11:30 | XMS_ITS | Encounter Summary ---
Author Organization [facility] Address [address] [place] [address] Care Team Providers Care Dedicated Driver Name Role Phone Yonatan Graves DO Primary Care Provider Farida Ortega WASHROOM CLEANER Unavailable [phone] Source Comments This information has been disclosed [...] release of HIV test results or diagnoses. [id number] Health Reason for Visit * Reason Comments Liver Transplant Evaluation Encounter Details Date Type Department Care Team (Late st Contact Info) Description 04/11/2025 12:30 PM EDT Office Visit [facility] Liver Transplant at [address] [address] Eliezer Vital MD [address] [place] [address] Encounter for pre-transplant evaluation for liver transplant (Primary Dx) Social History Tobacco Use Types [...] Sign Reading Time Taken Comments Blood Pressure 109/61 04/11/2025 11:53 AM EDT Pulse 84 04/11/2025 11:53 AM EDT Temperature 36.8 C (98.3 F) 04/11/2025 11:53 AM EDT Respiratory Rate 16 04/11/2025 11:5 3 AM EDT Oxygen Saturation 98% 04/11/2025 11: 53 AM EDT Inhaled Oxygen Concentration 98% 11:53 AM EDT Weight 71.6 kg (157 lb 12.8 oz) 025 11:53 AM EDT Height 165.1 cm (5' 5 ) 04/11/2025 11:5 3 AM EDT Body Mass Index 26.26 04/11/2025 11:53 AM EDT documented in this encounter Patient Instructions * Patient Instructions* Eliezer Vital MD - 04/11/2025 12:30 PM EDT Continue coreg Continue lasix and spironolactone at current dose High protein diet RTC prn documented in this encounter Progress Notes * Eliezer Vital MD - 04/11/2025 12:30 PM EDT Hepatology Clinic Note Name: Mindy Wade CSN: [id number] Chief Complaint: Liver Transplant Evaluation History of Present Illness: Mindy Wade is a 35 y.o. 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 Her liver disease has been decompensated by ascites and jaundice. She was last seen in January 2025. She has a complex history of complex [...] in 2016. Is unclear as to how longrajendra had chronic hepatitis C before she was treated. She states that she intended rehabilitation andwas on Suboxone. She was doing well up until July 2022 when she started to feel more fatigued and developed nausea and ultimately developed jaundice. Because of this she sought medical attention and was diagnosed with liver disease. She then saw [facility] in October 2022 for transplant [...] work. Patient was evaluated by transplant social work msw at in December 2022, where it was [...] Jul 2023 and then underwent detox at [facility]. She reports she has been sober since July 2023 and reports under planning her alcohol use. It appears she has insight today. She is following with a local aquatics specialist and psychiatry in [facility] including Dr. Guajardo. Her ascites is controlled with diuretics. No recent large-volume paracentesis. She is taking Lasix 60 mg twice daily and spironolactone 150 mg twice daily. Denies any hepatic encephalopathy or confusion. Jaundice mildly improved. Reports ongoing fatigue and inability to work. Most recent MRI in with multiple LR3 /LR4 lesions in liver and trace ascites. Denies any recent GI bleeding. EGD 07/2024: no EV or GV. Planning for living donor. + TB and undergoing triple therapy per ID (B6, rifapentin, INH). TTE was normal. Other testing without contraindications for transplant. Interval History: MRI abd 02/07 with LIRADS - 5 lesion and additional LR-3 and LR-[address] chest w/o consolidations or infiltrates present. Planned for living donor liver transplant 04/18 Completed latent TB treatment. Patient denies any family history of liver disease, liver cancer or autoimmune conditions. No new medications or herbal supplements. No history of further decompensations including fatigue, jaundice, variceal or GI bleeding, HE/confusion, ascites/hepatic hydrothorax, or hepatocellular carcinoma. No fevers or chills, nausea or vomiting, blood in stool, dark stools, or abdominal pain. No dysphagia, odynophagia or weight loss. No other complaints at this time. In terms of liver disease, patient was diagnosed in * based on cross sectional imaging which showedcirrhotic morphology and stigmata of portal hypertension including varices, recanalized umbilical vein and splenomegaly. In terms of decompensations: patient now significantly decompensated by ascites requiring LVPs q weekly The following portions of the patient's history were reviewed and updated as appropriate: allergies, current medications, past family history, past medical history, past social history, past surgicalhistory and problem list. Comprehensive review of systems performed. See full ROS in EMR. 12 point ROS was performed and negative except as noted above in the HPI. An extensive review of past records including prior office notes, labs, imaging, and pathology reports was performed from the Media tab, Care Everywhere and paper documents. Review of Systems Gen: no fatigue, no malaise, no fever Neuro: no headache, no focal weakness, no dysarthria HEENT: no oral ulcers, no red eye, no eye pain Pulm: no dyspnea, no wheezing CV: no chest pain, no palpitations, no lightheadedness GI: no abdominal pain, no constipation, no diarrhea, no blood in stool, no dysphagia Renal/: no dysuria, no hematuria, no frequency Skin: no rash, no jaundice Heme: no easy bruising, no petechiae, no ecchymosis Rheum: no joint pain, no joint swelling Past 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 Past 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: Diagnosis Date Abdominal hernia 02/21/2023 Alcoholic hepatitis (CMS-HCC) Anxiety Ascites Chronic diarrhea 08/21/2022 Cirrhosis ([facility]-HCC) Cystitis Depression Hepatitis C Past Surgical History [...] date: 07/22/2014 Quit date: 07/22/2015 Years since quittin.7 Smokeless tobacco: Never Substance Use Topics Alcohol use: Not Currently Medications Current Medications as of 04/11/2025 12:13 PM Outpatient Medications Quantity Refills Start End carvediloL (COREG) 3.125 MG tablet 180 tablet 1 01/28/2025 -- furosemide (LASIX) 20 MG tablet 540 tablet 1 11/16/2024 -- gabapentin (NEURONTIN) 800 MG tablet -- -- -- ondansetron (ZOFRAN) 4 MG tablet 40 tablet 2 01/18/2025 -- ondansetron (ZOFRAN-ODT) 8 MG disintegrating tablet 20 tablet 0 08/24/2024 -- spironolactone (ALDACTONE) 50 MG tablet 540 tablet 1 12/23/2024 -- Inpatient Medications Ordered Dose Frequency Start End electrolyte-R (pH 7.4) (NORMOSOL-R pH 7.4) IV solution 75 mL/hr Continuous 03/12/2025 0930 (none) Allergies Allergies[1] Vitals: Vitals: 04/11/25 1153 BP: 109/61 Pulse: 84 Resp: 16 Temp: 98.3 ??F (36.8 ??C) SpO2: 98% Physical Exam Gen: Well-developed, well nourished. No acute distress. Non-toxic appearing HEENT: Mucous membranes pink/moist. No scleral icterus. Neck: Neck is supple. CV: Regular rate. Lungs: No respiratory distress. Abdomen: Soft, non-tender, non-distended stomach no hepatosplenomegaly or palpable masses. No ascites present. No rebound or guarding present. Extremities: No bilateral lower extremity edema. No clubbing or cyanosis present. Skin: No bruising or rash noted. No spider angiomata or palmar erythema. Neuro: Alert and oriented to person, place, and time. CN 2-12 grossly intact. No gross motor defecits. No asterixis Psych: Normal mood and affect. Normal speech and behavior. Laboratory: Lab Results Component Value Date WBC 3.1 03/08/2025 HGB 11.4 (A) 03/08/2025 HCT 34.6 (A) 03/08/2025 MCV 96.9 03/08/2025 PLT 76 03/08/2025 Lab Results Component Value Date NA 140 03/08/2025 K 3.3 03/08/2025 CL 108 03/08/2025 CO2 25.4 (A) 03/08/2025 BUN 8 03/08/2025 CREATININE 0.6 03/08/2025 GLUCOSE 97 03/08/2025 CALCIUM 8.3 03/08/2025 PHOS 3.0 03/08/2025 Lab Results Component Value Date AST 43 03/08/2025 ALT 39 03/08/2025 BILITOT 1.90 03/08/2025 BILIDIRECT 0.8 03/08/2025 PROT 6.5 03/08/2025 ALBUMIN 3.1 (A) 03/08/2025 ALKPHOS 139 03/08/2025 Lab Results Component Value Date INR 1.2 (A) 03/08/2025 Lab Results Component Value Date HEPBCAB Nonreactive 12/20/2024 No results found for: BLUE No results found for: SMOOTHMUSCAB Lab Results Component Value Date IRON 312 (H) 12/20/2024 TIBC 552 (H) 12/20/2024 FERRITIN 17.5 12/20/2024 No results found for: OCCULTBLD No results found for: AFP No results found for: CEA No results found for: CA125 No results found for this or any previous visit (from the past 2079 hours). Assessment/Plan: MELD 3.0: 14 at 02/07/2025 2:19 PM Calculated from: Serum Creatinine: 0.51 mg/dL (Using min of 1 mg/dL) at 02/07/2025 2:19 PM Serum Sodium: 139 mmol/L (Using max of 137 mmol/L) at 02/07/2025 2:19 PM Total Bilirubin: 2.4 mg/dL at 02/07/2025 2:19 PM Serum Albumin: 3.9 g/dL (Using max of 3.5 g/dL) at 02/07/2025 2:19 PM INR(ratio): 1.3 at 02/07/2025 2:19 PM Age at listing (hypothetical): 35 years Sex: Female at 02/07/2025 2:19 PM Mindy Wade is a 35 y.o. 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 Her liver disease has been decompensated by ascites and jaundice. She was last seen in January 2025. Recommendations are as follows: MELD Labs to be updated Variceal Screening - cont coreg 3.125 mg BID Ascites - Would continue current dose of lasix mg and aldactone mg . Counseled and educated on 2000mg low sodium diet. HE - Continue current dose of lactulose with goal of 2-3 soft bowel movements daily. Continue Rifaximin 550 mg twice daily. HCC - LI-RADS 5 and multiple LI-RADS 3 and 4 lesions 02/07/2025. AFP 3.4. Reviewed at - defer treatment/bx at this time. Will follow up explant pathology. Vaccinations - Immune to Hep A, s/p Hep B vaccination Sarcopenia/diet : Encouraged high protein diet (1.5 g/kg) and exercise Transplant Listing - MELD 3.0: 14 at 02/07/2025 2:19 PM Calculated from: Serum Creatinine: 0.51 mg/dL (Using min of 1 mg/dL) at 02/07/2025 2:19 PM Serum Sodium: 139 mmol/L (Using max of 137 mmol/L) at 02/07/2025 2:19 PM Total Bilirubin: 2.4 mg/dL at 02/07/2025 2:19 PM Serum Albumin: 3.9 g/dL (Using max of 3.5 g/dL) at 02/07/2025 2:19 PM INR(ratio): 1.3 at 02/07/2025 2:19 PM Age at listing (hypothetical): 35 years Sex: Female at 02/07/2025 2:19 PM She has completed her pre-transplant testing as detailed in HPI. She will see our anesthesia colleagues today and her testing will be reviewed in weekly liver selection meeting later this week for official listing. Will get MELD labs today The patient has decompensated liver disease and transplant listing is indicated. Patient will be evaluated by transplant social work msw regarding adequate social support or any issues with substance use. We discussed in detail the evaluation process for liver transplant including all the testing, allocation of organs based on MELD scoring system, possible surgical and medical complications of liver transplantation, need for life long immune suppression along with the side effects of these medications. We also discussed the outcomes of our center as compared to national and regional outcomes. Patient signed and informed consent and will be seen by our surgical colleagues, social work msw, wic site coordinator and ball holder today. We will go ahead and order all the transplant related workup.Once the work up is complete, patient will be seen by our anesthesia colleagues and the testing will be reviewed in weekly liver selection meeting prior to official listing. - Plan for living donor 04/18 - Transplant clinic follow up at completion of work. This note was completely edited, written and [...] current evaluation and management for this patient. I have reviewed interval / recent lab work including: CBC, renal, hepatic, INR, viral studies, and all other labs for chronic liver disease relating to their medical condition. I have independently reviewed the patients recent radiologic imaging including any CT scans, MRI, ultrasound or endoscopicprocedures. Finally, I have reviewed independently any interval GI and liver pathology. I spent over 60 minutes of time on the care of this patient on this day. Eliezer Vital MD Spiral Winding Machine Helper Medicine Division of Gastroenterology and Hepatology [1] Allergies Allergen Reactions Amoxicillin Rash Morphine Rash and Other (See Comments) Penicillins Rash and Other (See Comments) states has had it before and done fine, states allergy from childhood documented in this encounter Plan of Treatment Not on file documented as of this encounter Visit Diagnoses Diagnosis Encounter for pre-transplant evaluation for liver transplant- Primary documented in this encounter Additional Health Concerns Assessment Noted Time PHQ-9 Depression Total Score: 13 11/04/ 025 2:00 PM EDT documented as of this encounter Care Teams Dedicated Driver Relationship Specialty Start Date End Date Yonatan Graves DO [address] [place] [address] PCP - General 02/01/25 Farida Ortega, WASHROOM CLEANER [address] [place] [id number] Referring Physician Gastroenterology 09/02/23 documented as of this encounter
--- OUTSIDE RECORDS SUMMARY | 2025-04-11 12:00 | XMS_ITS | Encounter Summary ---
Author Organization [facility] Address [address] [place] [address] Care Team Providers Care Stations Superintendent Name Role Phone Yonatan Graves DO Primary Care Provider Farida Ortega LOCAL COMBINATION TRUCK DRIVER Unavailable [phone] Source Comments This information has been disclosed [...] release of HIV test results or diagnoses. [id number] Health Encounter Details Date Type Department Care Team (Late st Contact Info) Description 04/11/2025 1:00 PM EDT Office Visit [facility] Liver Transplant at [address] [address] Jarrod Goode MD [address] [place] [address] Liver/[place] [address] 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; Encounter for pre-transplant evaluation for [...] as of this encounter Progress Notes * Jarrod Goode MD - 04/11/2025 1:00 PM EDT REASON FOR VISIT: pre operative visit for living donor liver transplant HPI: Mnidy Wade is a 35 y.o. female who has HCV ETOH cirrhosis. She has been in work up for some timeto prove alcohol abstinence and complete TB treatment. She has ascites controlled with diuretics. HCV was treated with Harvoni in 2018. MELD 3.0: 14 at 02/07/2025 2:19 PM [...] years Sex: Female at 02/07/2025 2:19 PM ABO: O ROS Negative x 11 systems Past 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: Diagnosis Date Abdominal hernia 02/21/2023 Alcoholic hepatitis (CMS-HCC) Anxiety Ascites Chronic diarrhea 08/21/2022 Cirrhosis (CMS-HCC) Cystitis Depression Hepatitis C Past Surgical History: Procedure Laterality Date APPENDECTOMY CYST REMOVAL Right had a cystic lesion under right breast with hematoma and cyst per patient which was removed ESOPHAGOGASTRODUODENOSCOPY N/A 07/28/2024 Procedure: EGD; Surgeon: Mario Ramirez MD; Location: ENDOSCOPY; Service: Gastroenterology; Laterality: N/A; UPPER GASTROINTESTINAL ENDOSCOPY 09/21/2022 Social History Socioeconomic History Marital status: Spouse [...] 07/22/2015 Years since quittin.7 Smokeless tobacco: Never Vaping Use Vaping status: Never Used Substance and Sexual Activity Alcohol use: Not Currently Drug use: Not Currently Sexual activity: Yes Partners: Male control/protection: Condom Other Topics Concern Caffeine Use No Occupational Exposure No Exercise No Seat Belt Yes Social History Narrative Not on file Social Drivers of Health Financial Resource Strain: Patient Declined (08/05/2023) Received from [facility] Overall Financial Resource Strain (CARDIA) Difficulty [...] file Physical Activity: Inactive (08/05/2023) Received from [facility] Exercise Vital Sign Days of Exercise per Week: 0 days Minutes of Exercise per Session: 0 min Stress: Stress Concern Present (08/05/2023) Received from [facility] [place] [employer] - Occupational Stress Questionnaire Feeling of Stress : Rather much Social Connections: Not At Risk (08/05/2023) Received from [facility] Family and Community Support If for [...] No Assistance needed for:: Not on file PHYSICAL EXAM: There were no vitals taken for this visit. Physical Exam No major scars Normal weight Minimal edema Strong peripheral pulses. MRI in January without ascites. Recanalized umbilical vein, patent portal vein. Conventional arterial anatomy. Assessment and Plan: Proceed with living donor liver transplant 04/18. This note was completely edited, written and reviewed by me and may consist of information cut and pasted from the my most recent visit, my smart phrases and other Epic tools. I have personally reviewed all aspects of this note to at least include reviewing this patient's chart and problem list, updating the history, physical exam, lab and procedure results, and assessment and plan as detailed above and below. As such this visit note reflects my current evaluation and management for this patient. Jarrod Goode MD Aircraft Accessories Mechanic of Transplant Surgery [phone] (m) 04/11/2025 1:00 PM documented in this encounter Plan of Treatment Not on file documented as of this encounter Visit Diagnoses Diagnosis Alcoholic cirrhosis of liver with ascites (CMS-HCC)- Primary Encounter for pre-transplant evaluation for liver transplant documented in this encounter Additional Health Concerns Assessment Noted Time PHQ-9 Depression Total Score: 13 025 2:00 PM EDT documented as of this encounter Care Teams Stations Superintendent Relationship Specialty Start Date End Date Yonatan Graves DO [address] [place] [address] PCP - General 02/01/25 Farida Ortega, LOCAL COMBINATION TRUCK DRIVER [address] [place] [address] Referring Physician Gastroenterology 09/02/23 documented as of this encounter
--- OUTSIDE RECORDS SUMMARY | 2025-04-11 13:00 | XMS_ITS | Encounter Summary ---
Author Organization [facility] Address [address] [place] [id number] Care Team Providers Care Chemical Dependency Professional Name Role Phone Yonatan Graves DO Primary Care Provider Farida Ortega ROVING CAN TENDER Unavailable [phone] Source Comments This information has been disclosed [...] release of HIV test results or diagnoses. [id number] Health Encounter Details Date Type Department Care Team (Late st Contact Info) Description 04/11/2025 2:00 PM EDT Office Visit [facility] Anesthesia Transplant at [address] [address] Unknown, Attending Provider Richard Li MD [address] [place] [address] [place] [address] Encounter for pre-transplant evaluation for liver [...] on file documented as of this encounter Patient Instructions * Patient Instructions* Rihcard Li MD - 04/11/2025 2:00 PM EDT Images from the [place] [address] (Ground Floor, Patient Registration) Arrival Instructions We're pleased that you have chosen [facility] for your upcoming procedure. The staff serving you has been professionally trained to provide the highest quality care. We encourage you to ask questions and to let the staff know of any special needs,as we want your visit to be as comfortable as possible. [place] [address] (Ground Floor, Patient Registration) on 04/18/25 at 7:30 AM. Please arrive at 5:30 AM. Please be aware that your surgeon's office will reach you to you regarding any changes to your dateand time of surgery. Feel free to contact your surgeon's office 1-2 days prior to surgery to confirm. Your surgeon's office will contact you with any changes to the date or time of your surgery. [facility]: the registration area in the main [facility]. Parking: [facility]: the [facility] located at [address] [place] [address] (formerly [facility]). *Parking tickets can be validated at the Parking Kiosk near the Lobby. *Coloring Room Man available 6:00am-6:00pm for a fee. Fasting Instructions Prior to Surgery or Procedure Requiring Sedation IF YOUR PHYSICIAN HAS ALREADY PRESCRIBED A SPECIAL DIET OR BOWEL PREP PRIOR TO YOUR SURGERY OR PROCEDURE, PLEASE FOLLOW THE INSTRUCTIONS FROM YOUR PHYSICIAN'S OFFICE. (If times of surgery changes then the pre op diet instructions would need to be adjusted accordingly) EATING and DRINKING INSTRUCTIONS THE MORNING OF YOUR PROCEDURE IF your physician has prescribed a special diet or bowel prep prior to your surgery or procedure, please follow the instructions from your physician's office. IF your arrival time changes, the times below will need to be adjusted accordingly. Nothing to eat or drink after 11:30 PM the night before surgery except small amounts of clear fluids: 8 HOURS Prior to surgery. Complete your last full meal and any fluids that are NOT clear by 11:30 PM the night before surgery. 2 HOURS Prior to surgery. Do not drink clear fluid after 5:30 AM on the morning of surgery. A clear fluid may have color, but you need to be able to see through it (examples: water, clear broth, Gatorade??, apple juice). Coffee and tea should NOT contain milk, creamer or sugar. Juice should NOT contain pulp. No gum or mints beyond 2 hours. FAILURE TO FOLLOW YOUR DIET INSTRUCTIONS MAY LEAD TO A DELAY OR CANCELLATION OF YOUR SURGERY. Diabetic patients: Closely monitor your blood sugar and keep in the range your doctor recommends. If you have low blood sugar prior to hospital arrival, drink a small amount of clear sugar containingfluid such as apple juice or clear soda, but no liquids containing pulp. Medication Instructions Bring a list of your current medications, along with the dose and frequency. Please include any vitamins, herbal supplements, and over the counter medications you may be taking. Your pre op nurse will need to know when your last dose of medication was taken. Please follow the following instructions regarding your home medications: Carvedilol (Coreg) Take per your usual schedule (the night before surgery). Furosemide (Lasix) Do not take the morning of surgery. Gabapentin (Neurontin) Do not take the morning of surgery. Spironolactone (Aldactone) Do not take the morning of surgery. -Aspirin: If you are taking aspirin, please consult with your prescribing physician as to if and when it should be stopped. -Blood thinners: (examples: coumadin, warfarin, Plavix, Xarelto, Eliquis): Consult with the prescribing physician, and follow the instructions as to when you should stop taking your blood thinner prior to surgery. -SGLT-2 inhibitors must be stopped three (3) prior to Surgery, including Empagliflozin (Jardiance or Jardiamet or Synjardy or Glyxambi), Dapagliflozin (Farxiga or Xigduo XR), Canagliflozin (Invokana), or Ertugliflozin (Steglatro) -Patients taking a rescue inhaler (albuterol), transplant anti-rejection medications, Parkinson's medications, Hepatitis C antivirals or seizure mediations, please bring your medication with you. Okga-phh-Ctmjcjn Medication (OTC) Instructions: -Some pgpw-hxr-scopwcz Medications may thin your blood: Stop taking vpon-mdk-cnbxdqp blood thinnersseven (7) to ten (10) days prior to your surgery. Examples of over the counter blood thinners include: Vitamin E and NSAIDs (Motrin, Naproxen, Aleve, Advil, Ibuprofen). -Herbal Supplements and multivitamins should be stopped two (2) weeks prior to surgery. -Cannabis products should be stopped two (2) weeks prior to surgery, unless you are taking cannabisto treat seizures or for medicinal purpose, then please stop on the day of surgery. -Chondroitin and glucosamine should be held for two (2) days prior to surgery. -Medication that are OK to continue through surgery: Fish oil, omege-3 fatty acids, melatonin, supplements used to treat a specific deficiency, like vitamin B12, iron, folate, calcium, magnesium or potassium. -It is OK to take acetaminophen (Tylenol) if needed in the days leading up to surgery. General Pre-Procedure Instructions TRANSPORTATION ARRANGEMENTS: You will need a responsible adult to accompany you home from the hospital. You will not be permitted to drive, take a taxi, bus, Uber or Lyfy by yourself, as these do notcount as reliable transportation. You will also need someone to stay with you for the first 24 hours after anesthesia. We will ask you to provide the name, and a working phone number for your designated contact. VISITOR POLICY: Same day surgery is allowing no more than (two) 2 adult visitors per patient at anytime. Prior to having any visitors, the patient will be checked in by the same day surgery nurse. Children under the age of 14 are not permitted to visit. Visiting hours in other areas of the hospital will vary depending on specific unit, or floor of the hospital. Masks are no longer required, exceptions may apply. WHAT TO BRING: Please bring a photo ID and insurance information. If you are being admitted to the hospital after surgery, you may bring a small overnight bag, but please do not bring any valuables. If you have an IMPLANTED DEVICE, BRING THE REMOTE CONTROL for it. Examples include: bladder stimulators, pain stimulators, INSPIRE, etc. If you have obstructive sleep apnea (CECILIO) and use a CPAP or BiPAP device, please bring this with you and all associated equipment, except for the water. VALUABLES: Please do not bring valuables such as money, jewelry or credit cards with you. However, if you wear hearing aids, glasses, and/or dentures, bring these items along with a case for safekeeping. WHAT TO WEAR: Wear casual, comfortable, loose fitting clothing. You will be provided with a hospital gown prior to surgery. DO NOT WEAR: Any make-up, jewelry, body piercings, powders, perfumes/colognes, dark nail azeri. FEMALE PATIENTS: Pre-menopausal female patients will be screened and/or tested for prior to your procedure given the potential risk of anesthesia and surgery to a fetus. Please do SHOWER the evening before surgery and again the morning of surgery. If given an antiseptic soap such as Chlorhexidine (CHG), please follow those instructions for use (see below). Simple soap, like Dial or Ivory, is adequate for all other surgeries. Do not shave in the area of the surgery for two (2) days prior to surgery. If needed, a trained staff member will clip the area immediately before your surgery. Chlorhexidine (CHG)/Surgical Scrub: If you have been provided Chlorhexidine for preop shower, you will use this soap to wash your entire body, once a day for five (5) days prior to surgery and the morning of surgery. -Do not apply this soap to your face, hair, or genital area. You may use your regular soap in theseareas. -You may use the antibacterial lotion starting four (4) days before surgery, but do not use any lotion the morning of surgery. -No other lotions, ointment, powders, creams, deodorant, perfume or cologne once you start using CHG wash. -Sleep on clean sheets the night before the procedure. -No pets in your bed the night the procedure. NASAL SWAB: If you are positive for Staph, or possibly MRSA, you will need to use Bactroban/Mupirocin intranasally for 5 days prior to surgery and the morning of surgery. You will be contacted by a [facility] nurse practitioner or registered nurse and a prescription will be called in to your pharmacy. This is used twice per day in each nostril via a Qtip. INCISIONS: If you have an incision after your procedure, be sure to sleep in clean sheets when you return home from surgery. Do not allow pets to sleep in bed with you until you have a follow-up appointment with your doctor. NICOTINE: Stop smoking and/or vaping as far in advance of the surgery as possible. This will help with the healing process. NICOTINE PATCHES: should be removed 24 hours in advance of the surgery. Day of Surgery Checklist: The morning of your surgery: ? [place] your teeth. ? Shower: the morning of surgery with an antibacterial soap, such as Dial. If given Chlorhexidine (CHG) wash or mupirocin/Bactroban nasal ointment, please use as instructed. ? Remove: all makeup, nail azeri, jewelry, wristwatch, and body piercings. ? Do not use: powder, lotions, deodorant, perfume, and or cologne. ? What to wear: Wear casual, loose fitting, and comfortable clothing. Bring with you: ? List of your medications, dosage and how often you take the medication. ? List of dwcn-jkc-icbwnlo medications and supplements, dose and how often you take the medication. ? Photo ID ? Insurance card ? Glasses and case ? Dentures and case ? Hearing aids and case ? Crutches, walker, or cane if you have these items and will need them after surgery. ? Specific medications as described above (rescue inhaler, transplant, seizure, Parkinson's and transplant medications) ? CPAP or BiPAP machine and all associated equipment except water ? Remote control for any implanted device (nerve stimulator, bladder stimulator, INSPIRE, etc) ? Other: ? For an overnight stay - pack a small bag of items that you may need (ex. change of clothing, toiletries, phone freelance art director). Locker space is limited in the surgery area. Leave at home: ? Valuables: We recommend that you leave valuables (ex. money, jewelry, credit cards) at home or with your family. ? Contact lenses: Leave at home or bring a case for safe keeping. Additional Instructions FEELING SICK?: If you suspect that you have an illness/infection/rash currently, or, if you developan illness or rash prior to surgery, please contact your surgeon immediately. For questions please call [phone]. There is a nurse available Friday through Friday, 8 a.m. to5:30 p.m. The office is closed on weekends and holidays. After hours you may leave a voicemail, and someone will return your call on the next business day. In an EMERGENCY, if you must reach someone after our office is closed, you may call the same day surgery at [phone] from 5:30 to 8 p.m. After that time, urgent calls only may go to the operatingroom desk at [phone]. documented in this encounter H&P Notes * Richard Li MD - 04/11/2025 2:00 PM EDT Images from the original note were not included. Anesthesiology Consultation and Preoperative History and Physical for Liver Transplantation Patient was previously seen in clinic 02/07/25; this is an updated version of the patient's previousnote. Date of Surgery: TBD. Surgeon: DEISY. Chief Complaint: Hepatic cirrhosis Procedure: Liver transplant. History of Present Illness: Mindy Wade is a 35 y.o. year old female seen at the request of the [facility] Liver Transplant serviceto render an opinion on perioperative risk optimization and to coordinate medical care as necessaryrelated to liver transplantation. Ms. 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 She has achieved SVR with Harvoni & abstinance from EtOH & IV drug use, and is now being considered for liver transplantation; she is currently planned for LDLT 04/18/25. Past 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: Past 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: Diagnosis [...] Strain: Patient Declined (08/05/2023) Received from [facility] Overall Financial Resource Strain (CARDIA) Difficulty of [...] Physical Activity: Inactive (08/05/2023) Received from [facility] Exercise Vital Sign Days of Exercise per Week: 0 days Minutes of Exercise per Session: 0 min Stress: Stress Concern Present (08/05/2023) Received from [facility] [employer] [employer] - Occupational Stress Questionnaire Feeling of Stress : Rather much Social Connections: Not At Risk (08/05/2023) Received from [facility] Family and Community Support If for any [...] gabapentin (NEURONTIN) 800 mg, 3 times daily ondansetron (ZOFRAN) 4 mg, Oral, Every 8 hours PRN ondansetron (ZOFRAN-ODT) 8 mg, Oral, Every 8 hours PRN spironolactone (ALDACTONE) 150 mg, Oral, 2 times daily Review of Systems: General: No fevers, chills. HEENT: No headaches, dizziness, vision loss. Pulmonary: Mild chronic cough, unchanged. No SOB, orthopnea, wheezing. Cardiovascular: No chest pain, palpitations, edema. GI: No nausea, vomiting, diarrhea, abdominal pain, melena, hematochezia. Neuro: History of seizures during in 2017; none since. No numbness. Skin: No rashes, itching. Ng Activity Scale: 8 - Moving heavy furniture; rapidly climbing stairs; carrying 20 pounds up stairs. Physical Exam: T 98.3F HR 84 RR 16 SpO2 98% BP 109/61 Ht 165.1 cm Wt 71.578 kg Gen: Age-appropriate adult in no acute distress [...] baseline or with provocation, shows a very cnsuwmwubr-rj-fany atrial level shunt. There is a shunt [...] 480 ms QTc: [address] 03/16/25: HEART: The heart is normal in size. VASCULAR STRUCTURES: Aorta and main pulmonary artery are normal in caliber. Impression: No focal infiltrates/consolidations. Once again seen, upper lobe predominant, small noncalcified and groundglass lung nodular foci, can be seen in smoking-related respiratory bronchiolitis. No suspicious lung nodule/mass. Cirrhotic morphology of the liver, splenomegaly. Sequela of healed granulomatous disease. EGD 07/28/24: - Small (< 5 mm) [...] flights of stairs without stopping. - Reports has only been taking PM dose of carvedilol due to fatigue. Discussed continuing usual carvedilol schedule prior to transplant. - No further cardiac testing necessary from anesthesia perspective. #ESLD 2/2 EtOH use & HCV Home regimen: carvedilol, furosemide, spironolactone. Patient with prior history of IVDU; last use was in 2017. Achieved SVR from HCV with Harvoni in 2018. Abstinent from EtOH since 07/2023. Decompensated by ascites (not requiring paracenteses) and jaundice. MELD 3.0: 14 at 02/07/2025 2:19 PM [...] years Sex: Female at 02/07/2025 2:19 PM The patient's liver disease is decompensated by: Ascites: Currently managed with: dietary changes and diuretics Portal HTN/Varices: last EGD on 07/28/24 demonstrated small nonbleeding varices. Hepatic encephalopathy: not currently experiencing; not requiring lactulose or rifaximin. Coagulopathy: Lab Results Component Value Date PLT 76 03/08/2025 Lab Results Component Value Date INR 1.2 (A) 03/08/2025 Sodium management: Sodium Date/Time Value Ref Range Status 03/08/2025 01:13 PM 140 Final 02/07/2025 02:19 PM 139 133 - 146 mmol/L Final 12/20/2024 04:30 PM 138 133 - 146 mmol/L Final Hepatopulmonary disease: Patient does not have a history of TIPS. #Hx positive Quantiferon test #Asthma Had positive Quantiferon 12/20/24. Had no active TB symptoms at the time; did recall a URI ~2-3 months prior. CXR 01/10/25 showed no evidence of TB. - Finished TB therapy today (04/11/25). - Patient reports infrequent (less than daily) [...] review Richard Li MD Department of Anesthesiology 04/11/2025 2:25 PM Number and Complexity of Problems Addressed 1 or more chronic illness with exacerbation, progression, or side effects of treatment Amount and/or Complexity of Data to be Reviewed and Analyzed Discussion of management or test interpretation with external physician/other qualified health careprofessional/appropriate source (not separately reported) Risk of Complications and/or Morbidity or Mortality of Patient Management Minimal [1] Allergies Allergen Reactions Amoxicillin Rash Reports has taken since childhood without issue. Morphine Rash and Other (See Comments) Penicillins [...] as of this encounter Care Teams Chemical Dependency Professional Relationship Specialty Start Date End Date Yonatan Graves DO [address] [place] [address] PCP - General 02/01/25 Farida Ortega, HARLEEN [address] [place] [id number] Referring Physician Gastroenterology 09/02/23 documented as of this encounter
--- OUTSIDE RECORDS SUMMARY | 2025-04-11 13:35 | XMS_ITS | Encounter Summary ---
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 [id number] Health Encounter Details Date Type Department Care Team (Late st Contact Info) Description 04/11/2025 2:35 PM EDT Specimen [facility] [address] [place] [id number] Mario Ramirez MD [address] [facility] [place] [address] Pre-transplant evaluation for chronic liver disease; Alcoholic cirrhosis of liver with ascites (CMS-HCC); Encounter for pre-transplant evaluation for liver transplant; TB (tuberculosis) Social History Tobacco Use Types Packs/Day Years Used Date Smoking Tobacco: Former Cigarettes 0.3 1.2 0 07/22/2014 - 07/22/2015 Smokeless Tobacco: Never Alcohol Use Standard Drinks/Week Comments Not Currently 0 (1 standard drink = 0.6 oz pur e alcohol) [facility] Utilities Answer Date Recorded In the past 12 months has th e electric, gas, oil, or water company threatened to shut off services in your home? No 04/19/2025 PHQ-2 Answer Date Recorded PHQ-2 Total Score 0 12/20/2024 Hunger Vital Sign Answer Date Recorded Within the past 12 months, y ou worried that your food would run out before you got the money to buy more. Never true 04/19/20 25 Within the past 12 months, t he food you bought just didn't last and you didn't have money to get more. Never true 04/19/2025 PRAPARE - Transportation Answer Date Re corded In the past 12 months, has l ack of transportation kept you from medical appointments or from getting medications? No 03/24 In the past 12 months, has l ack of transportation kept you from meetings, work, or from getting things needed for daily living? No 04/19/2025 Housing Stability Vital Sign Answer Petr e Recorded In the last 12 months, was t here a time when you were not able to pay the mortgage or rent on time? No 04/19/2025 In the past 12 months, how m any times have you moved where you were living? 0 04/19/2025 At any time in the past 12 m [facility], were you homeless or living in a [place] facility (including now)? No 04/19/2025 Yearly Questionnaire Answer Date Record ed Do [...] on file documented as of this encounter Functional Status * Peripheral Vascular Question Answer Date of Assessment Author Peripheral Vascular (KENISHA) KENISHA 04/18/2025 7:46 AM EDT Hedy Robison RN documented as of this encounter Plan of Treatment Pending Results Name Type Priority Associated Diagnoses Date /Time HLA Auto Flow Crossmatch-[facility] Lab Routine Pre-transplant evaluation for chronic liver disease 04/11/2025 2:53 PM EDT Serological ABO(Transplant Only)-[facility] Lab Routine Pre-transplant evaluation for chronic liver disease 04/11/2025 2:53 PM EDT HLA CLASS I/II TYPING:[facility]ID [facility] Routine Pre-transplant evaluation for chronic liver disease 04/11/2025 2:53 PM EDT HLA Antibody ID(Pre TXP)DSA-[facility] Lab Routine Pre-transplant evaluation for chronic liver disease 04/11/2025 2:53 PM EDT documented as of this encounter Procedures Procedure Name Priority Date/Time Associated Diagnosis Comments PREPARE RBC, LEUKOREDUCED Routine 04/18/2025 8:17 PM EDT TREPONEMA PALLIDUM AB WITH REFLEX Routine 04/11/2025 2:53 PM EDT Pre-transplant evaluation for chronic liver disease CMV IGM ANTIBODY Routine 04/11/2025 2:53 PM EDT CMV IGG ANTIBODY Routine 04/11/2025 2:53 PM EDT HEPATITIS B VIRUS (HBV), REAL-TIME PCR, QUANT Routine 04/11/2025 2:53 PM EDT Pre-transplant evaluation for chronic liver disease HEPATITIS B CORE ANTIBODY Routine 04/11/2025 2:53 PM EDT Pre-transplant evaluation for chronic liver disease EBV ANTIBODY IGM Routine 04/11/2025 2:53 PM EDT Pre-transplant evaluation for chronic liver disease HIV-1 RNA, QUANTITATIVE, PCR Routine 04/11/2025 2:53 PM EDT Pre-transplant evaluation for chronic liver disease HEPATITIS C ANTIBODY Routine 04/11/2025 2:53 PM EDT Pre-transplant evaluation for chronic liver disease VANESSA-JACKSON VIRUS VCA IGG AB Routine 04/11/2025 2:53 PM EDT Pre-transplant evaluation for chronic liver disease ABO/RH Routine 04/11/2025 2:53 PM EDT Pre-transplant evaluation for chronic liver disease HEPATITIS C RNA, QUANTITATIVE PCR Routine 04/11/2025 2:53 PM EDT Pre-transplant evaluation for chronic liver disease VITAMIN D 25 HYDROXY Routine 04/11/2025 2:53 PM EDT Pre-transplant evaluation for chronic liver disease DIFFERENTIAL Routine 04/11/2025 2:53 PM EDT Pre-transplant evaluation for chronic liver disease HIV 1+2 ANTIBODY/ANTIGEN WITH REFLEX Routine 04/11/2025 2:53 PM EDT Pre-transplant evaluation for chronic liver disease HEPATITIS B SURFACE ANTIBODY, QUANTITATIVE Routine 04/11/2025 2:53 PM EDT Pre-transplant evaluation for chronic liver disease HEPATITIS B SURFACE ANTIGEN Routine 04/11/2025 2:53 PM EDT Pre-transplant evaluation for chronic liver disease APTT Routine 04/11/2025 2:53 PM EDT Pre-transplant evaluation for chronic liver disease PROTIME-INR Routine 04/11/2025 2:53 PM EDT Pre-transplant evaluation for chronic liver disease Alcoholic cirrhosis of liver with ascites (CMS-HCC) CBC Routine 04/11/2025 2:53 PM EDT Pre-transplant evaluation for chronic liver disease Alcoholic cirrhosis of liver with ascites (CMS-HCC) ANTIBODY SCREEN Routine 04/11/2025 2:53 PM EDT Pre-transplant evaluation for chronic liver disease HEMOGLOBIN A1C Routine 04/11/2025 2:53 PM EDT Pre-transplant evaluation for chronic liver disease HEPATIC FUNCTION PANEL Routine 2:35 PM EDT Pre-transplant evaluation for chronic liver disease Alcoholic cirrhosis of liver with ascites (CMS-HCC) HCG, QUANTITATIVE, Routine 04/11/2025 2:35 PM EDT Pre-transplant evaluation for chronic liver disease MAGNESIUM Routine 04/11/2025 2:35 PM EDT Pre-transplant evaluation for chronic liver disease COMPREHENSIVE METABOLIC PANEL Routine 04/11/2025 2:35 PM EDT Alcoholic cirrhosis of liver with ascites (CMS-HCC) Encounter for pre-transplant evaluation for liver transplant TB (tuberculosis) documented in this encounter Results * Prepare RBC, leukoreduced (04/18/2025 8:17 PM EDT) Product Code D4730Y78 HCLL Unit Number [id number] HCLL Dispense Status Released from Crossmatch_RE HCLL Blood Expiration Date HCLL Coding System [id number] HCLL Product Code I4934O50 HCLL Unit Number [id number] HCLL Dispense Status Released from Crossmatch_RE HCLL Blood Expiration Date HCLL Coding System [id number] HCLL Product Code Q8894A83 HCLL Unit Number [id number] HCLL Dispense Status Released from Crossmatch_RE HCLL Blood Expiration Date HCLL Coding System LLVQ637 HCLL Product Code [id number] HCLL Unit Number [id number] HCLL Dispense Status Released from Crossmatch_RE HCLL Blood Expiration Date HCLL Coding System PCSF575 HCLL Product Code P3031Y47 HCLL Unit Number [id number] HCLL Dispense Status Released from Crossmatch_RE HCLL Blood Expiration Date HCLL Coding System [id number] HCLL Jarrod Goode MD BLOOD BANK PRODUCT ORDERABLES Fi nal Result Performing Organization Address [facility] de Phone Number HCLL * CMV IgM Antibody (04/11/2025 2:53 PM EDT) Pathologist [facility] CMV IgM Negative Negative 04/11/2025 6:43 PM EDT [facility] Comment:Result indicates abs ence of CMV IgM antibodies. A negative result does not always rule out acute hCMV infection. The IgM response may not be detectable in early stage of infection or if the patient is immunocompromised. If clinical exposure to hCMV is still suspected, a second sample should be collected within 1-2 weeks. CMV IGM NUM <8.00 0.00 - 29.99 AU/mL 04/11/2025 6:43 PM EDT [facility] Serum 04/11/2025 2:53 PM EDT 04/11/2025 3:53 PM EDT Jarrod Goode MD LAB BLOOD ORDERABLES Final Resul t Performing Organization Address [facility] Co de Phone Number [facility] [address] * (ABNORMAL) CMV IgG Antibody (04/11/2025 2:53 PM EDT) Pathologist [facility] CMV IgG Positive(A ) Negative 04/11/2025 6:33 PM EDT [facility] CMV IGG NUM >10.00(H) 0.00 - 0.59 U/mL 04/11/2025 6:33 PM EDT [facility] Serum 04/11/2025 2:53 PM EDT 04/11/2025 3:53 PM EDT Jarrod Goode MD LAB BLOOD ORDERABLES Final Resul t Performing Organization Address [facility] de Phone Number [facility] [address] * Hepatitis B Surface Antibody, Quantitative (04/11/2025 2:53 PM EDT) Pathologist [facility] HBSAB NUMBER 5.10 0.00 - 9.99 mIU/mL 04/11/2025 6:44 PM EDT [facility] Hep B S Ab Nonreactive Nonreactive 04/11/2025 6:44 PM EDT [facility] Serum 04/11/2025 2:53 PM EDT 04/11/2025 3:53 PM EDT Narrative [facility] - 04/11/2025 6:44 PM EDT Individual is considered not immune to HBV infection. Jarrod Goode MD LAB BLOOD ORDERABLES Final Resul t Performing Organization Address City/[facility] Co de Phone Number [facility] [address] [facility]. [address] * Hepatitis B Virus (HBV), PCR, Quant (04/11/2025 2:53 PM EDT) Hep B Viral DNA IU/ML Not Detected IU/mL 04/12/2025 10:44 AM EDT [facility] Comment:Test methodology for HBV DNA quantification is an FDA-approved nucleic acid amplification assay. The lower limit of quantitation (LLOQ) is 10 IU/mL. The linear range of the assay is 10-1,000,000,000 IU/mL. The limit of detection (LoD) for plasma is 2.7 IU/mL. The reference range is Not Detected. log 10 HBV as IU/mL See Note log 10 IU/mL 04/12/2025 10:44 AM EDT [facility] Comment:HBV DNA not detected . Plasma 04/11/2025 2:53 PM EDT 04/11/2025 4:57 PM EDT us Jarrod Goode MD LAB BLOOD ORDERABLES Final Resul t Performing Organization Address [facility] Co de Phone Number [facility] [address] [facility]. [address] * (ABNORMAL) Vitamin D 25 hydroxy (04/11/2025 2:53 PM EDT) Vit D, 25-Hydroxy 27.1(L) 30.0 - 100.0 ng/mL 04/11/2025 6:43 PM EDT [facility] Comment: Vitamin D deficiency has been defined by the [place] of Medicine (IOM) and an Endocrine Society practice guideline as a level of serum 25-OH Vitamin D less than 20 ng/mL. The Endocrine Society went on to further define Vitamin D insufficiency as a level between 21-29 ng/mL. 1) IOM. 2011 Dietary reference intakes for calcium and D. Norris D.C: The National Academies Press 2) Kamari MF, Yvette NC, Billie SPANN, et al. Evaluation, treatment, and prevention of Vitamin D deficiency: an Endocrine Society clinical practice guideline. JCEM. 2010; 96(8):1911-30. Serum 04/11/2025 2:53 PM EDT 04/11/2025 3:53 PM EDT us Jarrod Goode MD LAB BLOOD ORDERABLES Final Resul t Performing Organization Address City/[facility]/ZIP Co de Phone Number [facility] [address] [place] [address] * Antibody screen (04/11/2025 2:53 PM EDT) Antibody Screen Negative 04/11/2025 5:27 PM EDT [facility] Blood 04/11/2025 2:53 PM EDT 04/11/2025 4:12 PM EDT Narrative [facility] - 04/11/2025 5:33 PM EDT Testing performed by [facility] us Jarrod Goode MD BLOOD BANK TEST ORDERABLES Final Result [facility] [address] [place] [address] * ABO/Rh (04/11/2025 2:53 PM EDT) ABO Grouping O 04/11/2025 5:16 PM EDT [facility] Rh Type Positive 04/11/2025 5:16 PM EDT [facility] Blood 04/11/2025 2:53 PM EDT 04/11/2025 4:12 PM EDT us Jarrod Goode MD BLOOD BANK TEST ORDERABLES Final Result Performing Organization Address [facility] Co de Phone Number [facility] [address] * Syphilis Screening (Trepia) (04/11/2025 2:53 PM EDT) Treponema Pallidum Negative Negative 04/11/2025 6:37 PM EDT [facility] Comment: No serological evidence of infection with Treponema pallidum (incubating or early primary syphilis cannot be excluded). Serum 04/11/2025 2:53 PM EDT 04/11/2025 3:53 PM EDT Jarrod Goode MD LAB BLOOD ORDERABLES Final Resul t Performing Organization Address [facility] de Phone Number [facility] [address] [facility]. [address] * Hemoglobin A1c (04/11/2025 2:53 PM EDT) Hemoglobin A1C 4.4 4.0 - 5.6 % 04/11/2025 11:24 PM EDT [facility] Comment: Hemoglobin A1c Interpretation Guidelines: [...] and other individual patient considerations. Whole Blood 04/11/2025 2:53 PM EDT 04/11/2025 3:53 PM EDT us Jarrod Goode MD LAB BLOOD ORDERABLES Final Resul t Performing Organization Address [facility] Co de Phone Number [facility] [address] [facility]. [address] * HIV RNA, quantitative, PCR (04/11/2025 2:53 PM EDT) Pathologist [facility] HIV 1 Copies Not Detected copies/mL 04/12/2025 11:46 AM EDT [facility] Comment:Test methodology for HIV-1 RNA quantification is an FDA-approved nucleic acid amplification assay. The Lower Limit of Quantitation (LLoQ) is 20 copies/mL. The linear range is 20- to 10,000,000 copies/mL. The Limit of Detection (LoD) is 13.2 copies/mL. The reference range is Not Detected. HIV [id number] See Note [id number] /mL 04/12/2025 11:46 AM EDT [facility] Comment:HIV-1 RNA not detect ed. Plasma 04/11/2025 2:53 PM EDT 04/11/2025 4:57 PM EDT us Jarrod Goode MD LAB BLOOD ORDERABLES Final Resul t Performing Organization Address City/[facility]/ZIP Co de Phone Number [facility] [address] [place] [address] * HIV 1+2 Antibody/Antigen with Reflex (04/11/2025 2:53 PM EDT) [facility] HIV 1+2 AB/AGN Nonreactive Nonreactive 04/11/2025 6:40 PM EDT [facility] Serum 04/11/2025 2:53 PM EDT 04/11/2025 3:53 PM EDT Narrative [facility] - 04/11/2025 6:40 PM EDT \HIVRNR us Jarrod Goode MD LAB BLOOD ORDERABLES Final Resul t [facility] [address] [place] [address] * Hepatitis C RNA, Quantitative PCR (04/11/2025 2:53 PM EDT) Pathologist [facility] [employer] Units Not Detected IU/mL 04/14/2025 10:36 AM EDT [facility] Comment:Test methodology for HCV RNA quantification is an FDA-approved nucleic acid amplification assay. The Lower Limit of Quantitation (LLOQ) is 15 IU/mL. The linear range of the assay is 15-100,000,000 IU/mL. The Limit of Detection (LoD) is 12.0 IU/mL for EDTA plasma. The reference range is Not Detected. IU log10 See Note log 10 IU/mL 04/14/2025 10:36 AM EDT [facility] Comment:HCV RNA not detected . Plasma 04/11/2025 2:53 PM EDT 04/11/2025 4:57 PM EDT us Jarrod Goode MD LAB BLOOD ORDERABLES Final Resul t Performing Organization Address [facility] de Phone Number [address] * (ABNORMAL) Hepatitis C Antibody (04/11/2025 2:53 PM EDT) HCV Ab Reactive( A) Nonreactive 04/11/2025 6:41 PM EDT [facility] Comment: Health Department notified in accordance with reportable infectious disease guidelines. Health Department notified in accordance with reportable infectious disease guidelines. Serum 04/11/2025 2:53 PM EDT 04/11/2025 3:53 PM EDT Narrative [facility] - 04/11/2025 6:41 PM EDT Presumptive evidence of antibodies to HCV: follow CDC recommendations for supplemental testing. us Jarrod Goode MD LAB BLOOD ORDERABLES Final Resul t Performing Organization Address [facility] de Phone Number [facility] [address] [place] [address]. [address] * Hepatitis B surface antigen (04/11/2025 2:53 PM EDT) Hep B Surface Ag Nonreactive Nonreactive 04/11/2025 6:36 PM EDT [facility] Comment:Health Department no tified in accordance with reportable infectious disease guidelines. Serum 04/11/2025 2:53 PM EDT 04/11/2025 3:53 PM EDT Narrative [facility] - 04/11/2025 6:36 PM EDT Specimen is considered negative for HBsAg. us Jarrod Goode MD LAB BLOOD ORDERABLES Final Resul t Performing Organization Address City/[facility]/ZIP Co de Phone Number [facility] [address] [facility]. [address] * Hepatitis B Core Antibody (04/11/2025 2:53 PM EDT) Hep B Core Total Ab Nonreactive Nonreactive 04/11/2025 6:29 PM EDT [facility] Comment:Health Department no tified in accordance with reportable infectious disease guidelines. Serum 04/11/2025 2:53 PM EDT 04/11/2025 3:53 PM EDT Narrative [facility] - 04/11/2025 6:29 PM EDT A nonreactive final interpretation indicates that anti-HBc antibodies were not detected in the sample; it is possible that the individual is not infected with HBV. us Jarrod Goode MD LAB BLOOD ORDERABLES Final Resul t Performing Organization Address [facility] de Phone Number [facility] [address] [facility]. [address] * EBV Antibody IgM (04/11/2025 2:53 PM EDT) Pathologist [facility] EBV VCA IgM Negative Negative 04/11/2025 6:33 PM EDT [facility] Comment:Absence of detectabl e VCA IgM antibodies. If exposure to Vanessa-Jackson virus is suspected despite a negative finding, a second sample should be collected and tested no less than one to two weeks later. EBV IGM NUM <10.00 0.00 - 35.99 U/mL 04/11/2025 6:33 PM EDT [facility] Serum 04/11/2025 2:53 PM EDT 04/11/2025 3:53 PM EDT us Jarrod Goode MD LAB BLOOD ORDERABLES Final Resul t Performing Organization Address City/[facility]/ZIP Co de Phone Number [facility] [address] * (ABNORMAL) Vanessa-Jackson Virus VCA IgG Ab (04/11/2025 2:53 PM EDT) [facility] EBV VCA IgG Positive( A) Negative 04/11/2025 6:34 PM EDT [facility] Comment:Presence of detectab le VCA IgG antibodies. A positive result indicates current or past exposure to Vanessa-Jackson virus. EBV IGG NUM >750.00(H ) 0.00 - 17.99 U/mL 04/11/2025 6:34 PM EDT [facility] Serum 04/11/2025 2:53 PM EDT 04/11/2025 3:53 PM EDT Jarrod Goode MD LAB BLOOD ORDERABLES Final Resul t [facility] [address] * (ABNORMAL) Differential (04/11/2025 2:53 PM EDT) [facility] Neutrophils Relative 32.5(L) 40.0 - 80.0 % 04/11/2025 4:48 PM EDT [facility] Lymphocytes Relative 32.1 15.0 - 45.0 % 04/11/2025 4:48 PM EDT [facility] Monocytes Relative 11.8 0.0 - 12.0 % 04/11/2025 4:48 PM EDT [facility] Eosinophils Relative 22.8(H) 0.0 - 8.0 % 04/11/2025 4:48 PM EDT [facility] Basophils Relative 0.8 0.0 - 1.0 % 04/11/2025 4:48 PM EDT [facility] nRBC 0 0 - 0 /100 WBC 04/11/2025 4:48 PM EDT [facility] Neutrophils Absolute 1,008(L) 1,520 - 8,640 /uL 04/11/2025 4:48 PM EDT [facility] Lymphocytes Absolute 995 570 - 4,860 /uL 04/11/2025 4:48 PM EDT [facility] Monocytes Absolute 366 0 - 1,296 /uL 04/11/2025 4:48 PM EDT [facility] Eosinophils Absolute 707 0 - 864 /uL 04/11/2025 4:48 PM EDT [facility] Basophils Absolute 25 0 - 108 /uL 04/11/2025 4:48 PM EDT [facility] Whole Blood 04/11/2025 2:53 PM EDT 04/11/2025 3:53 PM EDT us Jarrod Goode MD LAB BLOOD ORDERABLES Final Resul t Performing Organization Address City/[facility]/ZIP Co de Phone Number [facility] [address] [facility]. [address] * APTT, No Anticoagulant (04/11/2025 2:53 PM EDT) aPTT 29.7 25.5 - 35.0 seconds 04/11/2025 4:34 PM EDT [facility] Plasma 04/11/2025 2:53 PM EDT 04/11/2025 4:19 PM EDT us Jarrod Goode MD LAB BLOOD ORDERABLES Final Resul t Performing Organization Address [facility] de Phone Number [facility] [address] [facility]. [address] * (ABNORMAL) CBC (04/11/2025 2:53 PM EDT) WBC 3.1(L) 3.8 - 10.8 10E3/uL 04/11/2025 4:48 PM EDT [facility] RBC 3.66(L) 3.80 - 5.10 10E6/uL 04/11/2025 4:48 PM EDT [facility] Hemoglobin 11.8 11.7 - 15.5 g/dL 04/11/2025 4:48 PM EDT [facility] Hematocrit 34.0(L) 35.0 - 45.0 % 04/11/2025 4:48 PM EDT [facility] MCV 92.9 80.0 - 100.0 fL 04/11/2025 4:48 PM EDT [facility] MCH 32.2 27.0 - 33.0 pg 04/11/2025 4:48 PM EDT [facility] MCHC 34.6 32.0 - 36.0 g/dL 04/11/2025 4:48 PM EDT [facility] RDW 14.7 11.0 - 15.0 % 04/11/2025 4:48 PM EDT [facility] Platelets 106(L) 140 - 400 10E3/uL 04/11/2025 4:48 PM EDT [facility] MPV 9.5 7.5 - 11.5 fL 04/11/2025 4:48 PM EDT [facility] Whole Blood 04/11/2025 2:53 PM EDT 04/11/2025 3:53 PM EDT Mario Ramirez MD LAB BLOOD ORDERABLES Final Re sult Performing Organization Address [facility] de Phone Number [facility] [address] * (ABNORMAL) Protime-INR (04/11/2025 2:53 PM EDT) Protime 16.2(H) 12.1 - 15.1 seconds 04/11/2025 4:33 PM EDT [facility] INR 1.2(H) 0.9 - 1.1 04/11/2025 4:33 PM EDT [facility] Comment: RECOMMENDED THERAPEUTIC RANGES USING INR : Stable oral anticoagulant therapy: 2.0 - 3.0 Mechanical prosthetic heart valve: 2.5 - 3.5 Recurrent acute myocardial infarction: 2.5 - 3.5 Plasma 04/11/2025 2:53 PM EDT 04/11/2025 4:19 PM EDT Mario Ramirez MD LAB BLOOD ORDERABLES Final Re sult Performing Organization Address [facility] Co de Phone Number [facility] [address] * (ABNORMAL) Comprehensive metabolic panel (04/11/2025 2:35 PM EDT) Sodium 139 133 - 146 mmol/L 04/11/2025 5:55 PM EDT [facility] Potassium 3.8 3.5 - 5.3 mmol/L 04/11/2025 5:55 PM EDT [facility] Chloride 109 98 - 110 mmol/L 04/11/2025 5:55 PM EDT [facility] CO2 25 21 - 33 mmol/L 04/11/2025 5:55 PM EDT [facility] Comment:High lactate dehydro genase concentrations in patient samples may cause falsely increased bicarbonate results. If markedly elevated LDH is observed or suspected, please assess results in conjunction with patient`s clinical presentation. In cases of discrepant results, consider evaluating CO2 in with a blood gas order. Anion Gap 5 3 - 16 mmol/L 04/11/2025 5:55 PM EDT [facility] BUN 9 7 - 25 mg/dL 04/11/2025 5:55 PM EDT [facility] Creatinine 0.55(L) 0.60 - 1.30 mg/dL 04/11/2025 5:55 PM EDT [facility] Glucose 84 70 - 100 mg/dL 04/11/2025 5:55 PM EDT [facility] Calcium 8.7 8.6 - 10.3 mg/dL 04/11/2025 5:55 PM EDT [facility] Total Bilirubin 1.4 0.0 - 1.5 mg/dL 04/11/2025 5:55 PM EDT [facility] AST 42(H) 13 - 39 U/L 04/11/2025 5:55 PM EDT [facility] ALT 27 7 - 52 U/L 04/11/2025 5:55 PM EDT [facility] Alkaline Phosphatase 116 36 - 125 U/L 04/11/2025 5:55 PM EDT [facility] Total Protein 6.5 6.4 - 8.9 g/dL 04/11/2025 5:55 PM EDT [facility] Albumin 3.7 3.5 - 5.7 g/dL 04/11/2025 5:55 PM EDT [facility] Osmolality, Calculated 286 278 - 305 mOsm/kg 04/11/2025 5:55 PM EDT [facility] EGFR >90 04/11/2025 5:55 PM EDT [facility] Comment: As of 2021, the [...] renal disease. For additional information: www.[email or web address].org Plasma 04/11/2025 2:35 PM EDT 04/11/2025 3:53 PM EDT [facility] Kin Kowalski MD LAB BLOOD ORDERABLES Final Result [facility] [address] [place] [address] * hCG, quantitative, (04/11/2025 2:35 PM EDT) hCG Quant 0.10 mIU/mL 04/11/2025 8:43 PM EDT [facility] Comment: Approximate Approximate Gestational Age hCG Range (Weeks) mIU/mL 0.2-1 5-50 1-2 50-500 2-3 100-5000 3-4 500-02296 4-5 1000-06828 5-6 [id number] 6-8 [id number] 8-12 [id number] This assay is not approved for, and should not be used to diagnose any condition unrelated to . A Negative hCG result is <5.0 mIU/mL. Plasma 04/11/2025 2:35 PM EDT 04/11/2025 3:53 PM EDT Narrative [facility] - 04/11/2025 8:43 PM EDT The testing method for beta-HCG is a chemiluminescent immunoassay manufactured by [employer] Concentrations of beta-HCG obtained by different assay methods or kits may vary and cannot be used interchangeably. Beta-HCG results cannot be interpreted as absolute evidence of the presence or absence of malignant disease. us Jarrod Goode MD LAB BLOOD ORDERABLES Final Resul t Performing Organization Address City/[facility]/ZIP Co de Phone Number [facility] [address] [facility]. [address] * Magnesium (04/11/2025 2:35 PM EDT) Magnesium 2.2 1.5 - 2.5 mg/dL 04/11/2025 5:55 PM EDT [facility] Plasma 04/11/2025 2:35 PM EDT 04/11/2025 3:53 PM EDT us Jarrod Goode MD LAB BLOOD ORDERABLES Final Resul t Performing Organization Address [facility] de Phone Number [facility] [address] [facility]. [address] * (ABNORMAL) Hepatic Function Panel (04/11/2025 2:35 PM EDT) Total Bilirubin 1.4 0.0 - 1.5 mg/dL 04/11/2025 5:55 PM EDT [facility] Bilirubin, Direct 0.52(H) 0.00 - 0.40 mg/dL 04/11/2025 5:55 PM EDT [facility] AST 42(H) 13 - 39 U/L 04/11/2025 5:55 PM EDT [facility] ALT 27 7 - 52 U/L 04/11/2025 5:55 PM EDT [facility] Alkaline Phosphatase 116 36 - 125 U/L 04/11/2025 5:55 PM EDT [facility] Total Protein 6.5 6.4 - 8.9 g/dL 04/11/2025 5:55 PM EDT [facility] Albumin 3.7 3.5 - 5.7 g/dL 04/11/2025 5:55 PM EDT [facility] Bilirubin, Indirect 0.88 0.00 - 1.10 mg/dL 04/11/2025 5:55 PM EDT [facility] Plasma 04/11/2025 2:35 PM EDT 04/11/2025 3:53 PM EDT Mario Ramirez MD LAB BLOOD ORDERABLES Final Re sult [facility] [address] documented in this encounter Visit Diagnoses Diagnosis Pre-transplant evaluation for chronic liver disease Alcoholic cirrhosis of liver with ascites (CMS-HCC) Encounter for pre-transplant evaluation for liver transplant TB (tuberculosis) Unspecified pulmonary tuberculosis, confirmation unspecified documented in this encounter Additional Health Concerns Assessment Noted Time PHQ-9 Depression Total Score: 13 025 2:00 PM EDT documented as of this encounter Care Teams Clothes Presser Relationship Specialty Start Date End Date Yonatan Graves DO [address] [place] [address] PCP - General 02/01/25 Farida Ortega NP [address] [place] [address] Referring Physician Gastroenterology 09/02/23 documented as of this encounter
--- OUTSIDE RECORDS SUMMARY | 2025-04-18 04:33 | XMS_ITS | Encounter Summary ---
Author Organization [facility] Address [address] [place] [id number] Care Team Providers Care Managed Care Coordinator Name Role Phone Geoff Graves DO Primary Care Provider Farida Ortega ADJUNCT PHYSICAL EDUCATION INSTRUCTOR Unavailable [phone] Cat Benavides RN Unavailable Unava ilable Source Comments This information has been disclosed [...] release of HIV test results or diagnoses. [id number] Reason for Referral * Surgical (Routine) - New Request Specialty Diagnoses / Procedures Referred By Roselyn mccollum Referred To Contact Gastroenterology Diagnoses Melena Procedures Case request GI: PUSH ENTEROSCOPY Mike Ventura MD [address] [place] [address] Phone: tel: fax: Referral ID Status Reason Start Date Expiration Date V isits Requested Visits Authorized [id number] New Request 04/23/2025 10/20/2025 1 1 Reason for Visit * Auth/Cert (Routine) Specialty Diagnoses / Procedures Referred By Contac t Referred To Contact Diagnoses Pre-transplant evaluation for chronic liver disease [Z01.818] Procedures LIVING DONOR TRANSPLANT RECIPIENT [facility] PERIOP [address] [place] [address] Phone: tel: Referral ID Status Reason Start Date Expiration Date Visits Re quested Visits Authorized [id number] 1 1 Encounter Details Date Type Department Care Team (Latest Contact Info) Description 04/18/2025 5:33 AM EDT - 05/03/2025 4:23 PM [facility] Hospital Encounter [facility] 8CCP [address] [place] [address] Ludin Jose MD [address] [place] [address] Liver/[place] [address] Alejandra Wilson MD [address] [place] [address] Liver/[place] [address] Immunosuppression (CMS-HCC) (Primary Dx); Pre-transplant evaluation for chronic liver disease; Generalized edema; Melena; Localized swelling, mass, or lump of upper extremity, right; Living related donor renal transplant; Alcoholic cirrhosis of liver with ascites (CMS-HCC); End-stage liver disease (CMS-HCC) Discharge Disposition: Home WITH Home Health Care Services Social History Tobacco Use Types Packs/Day Years Used Date Smoking Tobacco: Former Cigarettes 0.3 1.2 0 07/22/2014 - 07/22/2015 Smokeless Tobacco: Never Alcohol Use Standard Drinks/Week Comments Not Currently 0 (1 standard drink = 0.6 oz pur e alcohol) [facility] Utilities Answer Date Recorded In the past 12 months has [employer], oil, or water [employer] threatened to shut off services in your home? No 04/19/2025 AUDIT-C Answer Date Recorded Q1: How often do you have a drink containing alcohol? Never 04/22/2025 Q2: How many drinks containi ng alcohol do you have on a typical day when you are drinking? Patient does not drink Q3: How often do you have si x or more drinks on one occasion? Never 04/22/2025 PHQ-2 Answer Date Recorded PHQ-2 Total Score [...] any time in the past 12 m [facility], were you homeless or living in a alf (including now)? No 04/19/2025 Yearly Questionnaire Answer [...] Sign Reading Time Taken Comments Blood Pressure 108/69 05/03/2025 2:58 PM EST Pulse 86 05/03/2025 2:58 PM EST Temperature 37.2 C (98.9 F) 05/03/2025 2:58 PM EST Respiratory Rate 18 05/03/2025 2:58 PM EST Oxygen Saturation 100% 05/03/2025 2:58 PM EST Inhaled Oxygen Concentration 100% 05/03/2025 2 :58 PM EST Weight 66.2 kg (145 lb 14.4 oz) 05/03/2025 5:33 AM EST Height 165.1 cm (5' 5 ) 04/29/2025 5:08 AM EST Body Mass Index 24.28 04/29/2025 5:08 AM EST documented in this encounter Functional Status * Peripheral Vascular Question Answer Date of Assessment Author Compression boots No 05/03/2025 8:30 AM EST Julianne Costello RN Peripheral Vascular (WDL) X 05/03/2025 8:30 AM EST Julianne Costello RN * Question Answer Date of Assessment Author Anti-Embolism Devices Bilateral;Sequenti al compression devices, below knee 04/27/2025 8:00 PM Meka Greco RN Anti-Embolism Intervention On 04/27/2025 8:00 PM Meka Greco RN * AUDIT-C Score Answer Date of Assessment Author 0 04/22/2025 2:18 AM Marilee Steele RN * Question Answer Date of Assessment Author Q1: How often do you have a drink containing alcohol? Never 04/22/2025 2:18 AM Marilee Gomez RN Q2: How many drinks containing alcohol do you have on a typical day when you are drinking? Patient does not drink 04/22/2025 2:18 AM Marilee Gomez RN Q3: How often do you have six or more drinks on one occasion? Never 04/22/2025 2:18 AM Marilee Gomez RN documented as of this encounter Discharge Summaries * Cleopatra Chung, INTERACTIVE MEDIA MARKETING SPECIALIST, SPECIFICATIONS WRITER - 05/03/2025 2:14 PM EST [facility] Management Discharge Summary Patient name: Mindy Wade Patient : 1990 Age: 35 y.o. Gender: female Patient emergency contact: Extended Emergency Contact Information Primary Emergency Contact: KHLOE WADE Mobile Relation: Spouse Attending provider: Ludin Jose MD Primary care physician: GEOFF GRAVES DO The MD has indicated that the patient is ready for discharge. Transfer Mode/Level of Care: Family DC Summary and Home Health orders have been faxed to facility by RACHEL Chung. The plan has been reviewed: Family Member Name and Relationship Notified at Discharge: Khloe Wade-spouse Family Contact Number:[phone] No further CM/SW needs. This plan has been reviewed with the multi-disciplinary team. Treatment Preferences Treatment Preferences: Distance Post-Discharge Goals Patient's Post-Discharge goals: Get stronger Post Acute Care Provider Information: Community Services at Discharge Community Services at Home post discharge: Home Health Residential Health Care Name/Phone # post discharge: [facility] [phone] Home Health Services Types at Discharge: PT/OT/GARNISHMENT SPECIALIST AJ Mata [phone] * Giovanny Louis MD - 05/03/2025 2:06 PM EST Images from the original note were not included. [facility] Inpatient Discharge Summary Patient: Mindy Wade Age: 35 y.o. CSN: [id number] Date of Admission: 04/18/2025 Date of Discharge: 05/03/2025 Attending Physician: Jose Daniel MD Primary Care Physician: GEOFF GRAVES DO Diagnoses Present on Admission Past 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: Diagnosis Date Abdominal hernia 02/21/2023 Alcoholic hepatitis ([facility]-HCC) Anxiety Ascites Chronic diarrhea 08/21/2022 Cirrhosis ([facility]-HCC) Cystitis Depression Hepatitis C Discharge Diagnoses There are no hospital problems to display for this patient. Operations/Procedures Performed (include dates) Surgeries: Surgical/Procedural Cases on this Admission Case IDs Date Procedure Surgeon Location Status [id number] 04/18/25 LIVING DONOR LIVER TRANSPLANT Ludin Jose MD OR Comp [id number] 04/23/25 PUSH ENTEROSCOPY Klesey Moyer MD ENDOSCOPY Comp [id number] 04/23/25 EMERGENCYEXPLORATORY LAP, REVISION OF JJ ANASTOMSIS, GASTRIC LAVAGE Alejandra Wilson MD OR Comp Lines and tubes: Patient Lines/Drains/Airways Status Active LDAs Name Placement date Placement time Site Days PICC Double Lumen 04/21/25 Right Brachial 04/21/25 0839 Brachial 12 Other Procedures / Pertinent Imaging: MRI Abdomen W and WO contrast Final Result IMPRESSION: Right lobe liver transplant. No evidence of biliary ductal dilation. Signal loss in the right hepatic vein adjacent to the inferior vena cava which may be artifactual in nature versus a filling defect. Report Verified by: Veronique Dick MD at 05/02/2025 9:24 AM EST US Duplex Pap-Hbr-Wlqxdep Comp Final Result IMPRESSION: ABDOMINAL ULTRASOUND Normal sonographic appearance of the transplant liver. ABDOMINAL DOPPLER Patent hepatic vasculature with normal arterial waveforms. Report Verified by: Veronique Dick MD at 04/29/2025 12:45 PM EST US Abdomen Limited Final Result IMPRESSION: ABDOMINAL ULTRASOUND Normal sonographic appearance of the transplant liver. ABDOMINAL DOPPLER Patent hepatic vasculature with normal arterial waveforms. Report Verified by: Veronique Dick MD at 04/29/2025 12:[address] Abdomen and Pelvis With IV contrast Final Result IMPRESSION: 1. Post right liver transplantation. 2. The hepatic vasculature appears patent. 3. Mild bowel dilatation, ileus pattern. Report Verified by: Mark Pittman MD at 04/29/2025 7:21 AM EST X-ray Portable Abdomen AP view Final Result IMPRESSION: Diffuse gaseous distention of small and large bowel loops in a pattern suggesting ileus. Report Verified by: Seble Crawford MD at 04/27/2025 7:58 AM EST VAS Venous Duplex Upper Right Final Result X-ray Portable Abdomen AP view Final Result IMPRESSION: 1. Mild distention of the bowel which may represent underlying postsurgical ileus. Report Verified by: Claude Yuen MD at 04/26/2025 8:59 AM EST US Abdomen Limited Final Result IMPRESSION: RIGHT UPPER QUADRANT Normal appearance of the right liver allograft with a small amount of subhepatic fluid.. LIVER DOPPLER Patent hepatic vasculature.. Report Verified by: Mark Pittman MD at 04/25/2025 11:02 AM EST US Duplex Nyb-Qej-Bjhjcmr Comp Final Result IMPRESSION: RIGHT UPPER QUADRANT Normal appearance of the right liver allograft with a small amount of subhepatic fluid.. LIVER DOPPLER Patent hepatic vasculature.. Report Verified by: Mark Pittman MD at 04/25/2025 11:02 AM EST X-ray Portable Chest Final Result IMPRESSION: No significant interval change. Report Verified by: Anuj Chavarria DO at 04/24/2025 1:10 PM EST US Abdomen Limited Final Result IMPRESSION: RIGHT UPPER QUADRANT Normal grayscale appearance of the right lobe liver allograft. Trace free fluid and right pleural effusion is within expected recent postsurgical limits. LIVER DOPPLER Patent hepatic vasculature. Report Verified by: Seble Crawford MD at 04/23/2025 2:30 PM EDT US Duplex Ukz-Nwp-Tifwgjp Comp Final Result IMPRESSION: RIGHT UPPER QUADRANT Normal grayscale appearance of the right lobe liver allograft. Trace free fluid and right pleural effusion is within expected recent postsurgical limits. LIVER DOPPLER Patent hepatic vasculature. Report Verified by: Seble Crawford MD at 04/23/2025 2:30 PM EDT X-ray Portable Chest Final Result IMPRESSION: 1. Improved aeration of the left lung, otherwise no significant change in bibasilar opacities. 2. Interval advancement of enteric feeding tube. Report Verified by: Anuj Chavarria DO at 04/23/2025 1:32 PM EDT XR Portable Feeding Tube Check Final Result IMPRESSION: Enteric tube tip overlies the gastric body with the sidehole at or just below the expected locationof the gastroesophageal junction. Mild gaseous distention of the stomach and small bowel partially imaged could represent ileus Report Verified by: Seble Crawford MD at 04/23/2025 9:50 AM EDT X-ray Portable Chest Final Result IMPRESSION: 1. Retracted enteric tube with tip projecting over the distal esophagus. 2. Otherwise, no significant interval change. Report Verified by: Anuj Chavarria DO at 04/23/2025 11:08 AM EDT X-ray Portable Chest Final Result IMPRESSION: No acute cardiopulmonary abnormality. Report Verified by: Vipul Gannon MD at 04/23/2025 4:18 AM EDT VAS Venous Duplex Upper Left Final Result US Duplex Kzb-Qts-Fvbdzhg Comp Final Result IMPRESSION: RIGHT UPPER QUADRANT Normal sonographic appearance of the right lobe liver transplant. LIVER DOPPLER Patent hepatic vasculature with antegrade flow and normal arterial waveforms.. Approved by Rosalee Jacinto MD on 04/21/2025 11:16 AM EDT I have personally reviewed the images and I agree with this report. Report Verified by: Veronique Dick MD at 04/21/2025 6:27 PM EDT US Abdomen Limited Final Result IMPRESSION: RIGHT UPPER QUADRANT Normal sonographic appearance of the right lobe liver transplant. LIVER DOPPLER Patent hepatic vasculature with antegrade flow and normal arterial waveforms.. Approved by Rosalee Jacinto MD on 04/21/2025 11:16 AM EDT I have personally reviewed the images and I agree with this report. Report Verified by: Veronique Dick MD at 04/21/2025 6:27 PM EDT US Abdomen Limited Final Result IMPRESSION: RIGHT UPPER QUADRANT 1. 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 2. Trace perihepatic fluid. LIVER DOPPLER 1. Patent hepatic vasculature with antegrade flow. Approved by Rosalee Jacinto MD on 04/19/2025 11:56 AM EDT I have personally reviewed the images and I agree with this report. Report Verified by: Francisco Kerr MD at 04/19/2025 2:31 PM EDT US Duplex Stk-Ihz-Neimqwa Comp Final Result IMPRESSION: RIGHT UPPER QUADRANT 1. 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 2. Trace perihepatic fluid. LIVER DOPPLER 1. Patent hepatic vasculature with antegrade flow. Approved by Rosalee Jacinto MD on 04/19/2025 11:56 AM EDT I have personally reviewed the images and I agree with this report. Report Verified by: Francisco Kerr MD at 04/19/2025 2:31 PM EDT X-ray Portable Chest Final Result IMPRESSION: Interval extubation. Otherwise no significant interval change. Approved by Mario Busch MD on 04/19/2025 3:16 AM EDT I have personally reviewed the images and I agree with this report. Report Verified by: Vipul Gannon MD at 04/19/2025 3:36 AM EDT XR Portable Feeding Tube Check Final Result IMPRESSION: 1. NG tube tip projects over the left upper abdomen, likely in the gastric fundus with apparent kinking at the level of sidehole. Report Verified by: Vipul Gannon MD at 04/18/2025 10:00 PM EDT X-ray Portable Chest Final Result IMPRESSION: 1. No acute cardiopulmonary abnormality. 2. Support apparatus as detailed. Report Verified by: Vipul Gannon MD at 04/18/2025 9:12 PM EDT Consulting Services (include reason) SICU PT/OT Social Work/Supervising Airplane Pilot [facility] Allergies Allergies[1] Discharge Medications Medication List TAKE these medications, which are NEW Quantity/Refills acetaminophen 325 MG tablet Commonly known as: TYLENOL Take 3 tablets (975 mg total) by mouth every 8 hours. Quantity: 200 tablet Refills: 0 aspirin 81 MG chewable tablet Chew 1 tablet (81 mg total) by mouth daily. Quantity: 30 tablet Refills: 11 calcium-vitamin D 500 mg-5 mcg (200 unit) per tablet Commonly known as: calcium-vitamin D Take 1 tablet by mouth 2 times a day with meals. Quantity: 60 tablet Refills: 2 fluconazole 200 MG tablet Commonly known as: DIFLUCAN Take 1 tablet (200 mg total) by mouth daily for 30 days. Quantity: 30 tablet Refills: 0 lidocaine 5 % Commonly known as: LIDODERM Place 2 patches onto the skin daily. Apply patch for 12 hours and then remove patch and leave off for 12 hours. Quantity: 30 patch Refills: 0 melatonin 3 mg Tab Take 1 tablet (3 mg total) by mouth at bedtime. Quantity: 30 tablet Refills: 0 methocarbamoL 500 MG tablet Commonly known as: ROBAXIN Take 2 tablets (1,000 mg total) by mouth 3 times a day. Quantity: 180 tablet Refills: 0 mycophenolate 250 mg capsule Commonly known as: CELLCEPT Take 2 capsules (500 mg total) by mouth 2 times a day. Quantity: 120 capsule Refills: 5 naloxone 4 mg/actuation Oolitic Commonly known as: NARCAN Apply 1 spray in one nostril if needed. Call 911. May repeat dose in other nostril if no response in 3 minutes. Quantity: 2 each Refills: 1 * oxyCODONE 5 MG immediate release tablet Commonly known as: ROXICODONE Take 2 tablets (10 mg total) by mouth every 6 hours as needed for Pain for up to 7 days. Quantity: 56 tablet Refills: 0 * oxyCODONE 5 MG immediate release tablet Commonly known as: ROXICODONE Take 2 tablets (10 mg total) by mouth every 6 hours as needed for Pain for up to 7 days. Quantity: 56 tablet Refills: 0 pantoprazole 40 MG tablet Commonly known as: PROTONIX Take 1 tablet (40 mg total) by mouth daily. Quantity: 60 tablet Refills: 0 polyethylene glycol 17 gram/dose powder Commonly known as: GLYCOLAX Mix 1 capful (17 g) in 8 oz of liquid and drink by mouth daily as needed (Constipation). Quantity: 238 g Refills: 0 predniSONE 5 MG tablet Commonly known as: DELTASONE Take 4 tablets (20 mg total) by mouth daily. Quantity: 120 tablet Refills: 2 pregabalin 100 MG capsule Commonly known as: LYRICA Take 1 capsule (100 mg total) by mouth 2 times a day for 30 days. Quantity: 60 capsule Refills: 0 senna-docusate 8.6-50 mg per tablet Commonly known as: sennosides-docusate sodium Take 1 tablet by mouth at bedtime as needed for Constipation. Quantity: 30 tablet Refills: 0 sulfamethoxazole-trimethoprim 400-80 mg per tablet Commonly known as: BACTRIM Take 1 tablet by mouth daily. Quantity: 30 tablet Refills: 2 tacrolimus 1 MG capsule Commonly known as: PROGRAF Take 3 capsules (3 mg total) by mouth every morning AND 2 capsules (2 mg total) at bedtime. Quantity: 600 capsule Refills: 5 traZODone 50 MG tablet Commonly known as: DESYREL Take 1 tablet (50 mg total) by mouth at bedtime for 30 days. Quantity: 30 tablet Refills: 0 ursodioL 300 mg capsule Commonly known as: ACTIGALL Take 1 capsule (300 mg total) by mouth 2 times a day. Quantity: 60 capsule Refills: 0 valGANciclovir 450 mg tablet Commonly known as: VALCYTE Take 1 tablet (450 mg total) by mouth daily. Quantity: 30 tablet Refills: 2 * This list has 2 medication(s) that are the same as other medications prescribed for you. Read thedirections carefully, and ask your doctor or other care provider to review them with you. TAKE these medications, which you were ALREADY TAKING Quantity/Refills ondansetron 8 MG disintegrating tablet Commonly known as: ZOFRAN-ODT Take 1 tablet (8 mg total) by mouth every 8 hours as needed for Nausea. Quantity: 20 tablet Refills: 0 STOP taking these medications carvediloL 3.125 MG tablet Commonly known as: COREG furosemide 20 MG tablet Commonly known as: LASIX gabapentin 800 MG tablet Commonly known as: NEURONTIN ondansetron 4 MG tablet Commonly known as: ZOFRAN spironolactone 50 MG tablet Commonly known as: ALDACTONE Where to Get Your Medications These medications were [facility] [address] [facility] [address] Hours: Friday - Friday: 8:00AM - 6:00PM acetaminophen 325 MG tablet aspirin 81 MG chewable tablet calcium-vitamin D 500 mg-5 mcg (200 unit) per tablet fluconazole 200 MG tablet lidocaine 5 % melatonin 3 mg Tab methocarbamoL 500 MG tablet mycophenolate 250 mg capsule naloxone 4 mg/actuation Oolitic oxyCODONE 5 MG immediate release tablet oxyCODONE 5 MG immediate release tablet pantoprazole 40 MG tablet polyethylene glycol 17 gram/dose powder predniSONE 5 MG tablet pregabalin 100 MG capsule senna-docusate 8.6-50 mg per tablet sulfamethoxazole-trimethoprim 400-80 mg per tablet tacrolimus 1 MG capsule traZODone 50 MG tablet ursodioL 300 mg capsule valGANciclovir 450 mg tablet Discharge Exam Physical Exam Vitals and nursing note reviewed. Constitutional: General: She is not in acute distress. Appearance: She is not toxic-appearing. HENT: Head: Normocephalic and atraumatic. Eyes: General: No scleral icterus. Extraocular Movements: Extraocular movements intact. Pupils: Pupils are equal, round, and reactive to light. Cardiovascular: Rate and Rhythm: Normal rate and regular rhythm. Pulses: Normal pulses. Pulmonary: Effort: Pulmonary effort is normal. No respiratory distress. Abdominal: General: Abdomen is flat. There is no distension. Palpations: Abdomen is soft. Comments: Incision c/d/i Musculoskeletal: General: No swelling. Normal range of motion. Cervical back: Normal range of motion. No rigidity. Skin: General: Skin is warm. Coloration: Skin is not jaundiced. Neurological: General: No focal deficit present. Mental Status: She is alert. Mental status is at baseline. Cranial Nerves: No cranial nerve deficit. Reason for Admission Mindy Wade is a 35 y.o. 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 She had been in work up for some time to prove alcohol abstinence and complete TB treatment. Decompensations include: ascites controlled with diuretics, and HCV which was treated with Harvoni in 2018. Hospital Course HEPATOLOGY - MELD 14. decompensated by ascites and HCV who underwent right lobe living donor liver transplant on 04/18/2025. See op-note for further operative details. Post-operative course complicated by: small bowel enteroscopy for possible GI bleed (none found), and subsequent take back for washout on 04/23 due to bleeding from the JJ anastomosis. Large volume clot removed, no active bleed identified (see op note for further detail). NG stayed in until POD4 due to ileus and continued melenotic stools. Diet then slowly advanced as tolerated. Also with high ascites drain output and bump in LFTs following takeback sp MRI on 05/01 that showed no biliary dilation, signal loss in the RHV 2/2 artifact vs filling defect. Explant pathology: no malignancy As above, LFTs uptrended following takeback on 04/23 with high ascites output from drain sites. MRI on 05/01 showed no biliary dilation, signal loss in the RHV 2/2 artifact vs filling defect. LFTs thenbegan to downtrend and were AST/ALT 54/108; AlkPhos 849; Tbili 2.4 at discharge. RENAL/ - Patient's ybarra catheter was removed and patient voided spontaneously on their own. Creatinine on day of discharge 1.16 with stable UOP. Received albumin/lasix while inpatient for management of ascites. NEURO/PAIN - Patient placed on IV Dilaudid post-op, then transitioned to PO pain meds. Discharged on Multi-modal pain regimen: Robaxin 1G TID, Lyrica 100 BID, Tylenol, and oxycodone 10-15 mg q4 hours. CV - Patient with no cardiac history prior to arrival. On aspirin at discharge. Hemodynamically stable at discharge. PULM - Patient was extubated following liver transplant and weaned to RA. IS encouraged. ID - patient received mary-operative antibiotics as per protocol. Patient was initiated on Fluconazole (take back), Valganciclovir and SS Bactrim for ID prophylaxis. CMV status was D+/R+ (donor/recipient). IMMUNOSUPPRESSION - Immunosuppression was standard. Patient initiated on Cellcept and steroid taperas per protocol Prograf was initiated post-operatively with levels monitored daily. The patient wasdischarged on the following immunosuppresion: Cellcept 500 mg BID; Steroid taper per protocol; Tacro 3/2 mg (FK level on day of discharge= 7.2). FEN/GI - patient placed on IVF post-op which were weaned as diet advanced. She had a prolonged period of NPO status due to re-op and ileus. She received TPN briefly. Patient initiated on clears once NG was removed and advanced as tolerated. Electrolytes replaced prn. Discharged on a bowel regimen as needed. [facility] evaluated patient and recommended home with [facility]. ENDO - A1C is 4.4. Glucoses remained WNL. No glucose monitoring or insulin required at discharge. HEME - Post-operatively, monitored for bleeding, hemodynamic stability with serial TEGs, CBCs, and drain output. Blood transfusions given to keep Hgb >7g. At discharge patient's hemoglobin remained stable. Caprini risk score evaluated by pharmacy; however, due to patient's JJ bleed, decision wasmade to not discharge on DVT prophylaxis. PSYCH - No issues. PROPHYLAXIS - patient initiated on SQ heparin and had SCDs on in bed for DVT prophylaxis. DISPO - patient was discharged to home with home care. Labs to be drawn qMon/Thurs. Patient and family received post-transplant education from information systems coordinator as well as medication teaching from transplant pharmacist. At time of discharge, the patient was tolerating oral food and hydration, voiding spontaneously, had return of bowel function, was ambulating without difficulty, and pain was controlled on oral medications. The patient was determined to be suitable for discharge and the patient felt comfortable with that decision. Condition on Discharge 1. Functional Status: normal 2. Mental Status: Alert/Oriented 3. Dietary Restrictions / Tube Feeding / TPN Diet/Nutrition Orders Diet Regular(7) Frequency: Effective Now Number of Occurrences: Until Specified Order Questions: Suicide/Behavior Risk Modification? No Dietary nutrition supplements Frequency: TID Number of Occurrences: Until Specified Order Questions: Select Supplement: Boost Plus-high calorie high protein supplement As listed above 4. Discharge specific orders: See [facility] Note 5. Core measures followed: (if this is a core measure patient) Discharge Weight: 145 lb 14.4 oz (66.2 kg) Disposition Home with assistance Home with supervision Home with Home Health Follow-Up Appointments Future Appointments Date Time Provider Department Center 05/10/2025 8:20 AM [facility], [facility] - [address] [id number] Signed: GIOVANNY LOUIS MD Transplant Surgery 05/03/2025 [1] No Known Drug Allergies or Adverse Reactions Cosigned by Jose Daniel MD at 05/10/2025 4:31 PM EST Associated attestation - Jose Daniel MD - 05/10/2025 4:31 PM EST Transplant Surgery Attending Attestation I have seen and examined the patient and agree with the plan. All points of care were reviewed in amultidisciplinary fashion with the housestaff and teams involved. Immunosuppression was reviewed and adjusted accordingly. This note represents care provided with the multidisciplinary team on 05/03/2025. Jose Daniel MD Transplant and Hepatobiliary Surgery [phone] (cell) documented in this encounter Discharge Instructions * Discharge Instructions* Giovanny Louis MD - 04/27/2025 3:43 PM EST Activity: As tolerated. Get out of bed and walk frequently. You should not drive for 2 weeks from your surgery date, and should be off all narcotic pain medications prior to driving. You should not lift over 10# for 6 weeks from your surgery date. Return to work: TBD in clinic follow up appointments. Diet: Regular diet Drain/Dressing/Wound Care: Sergio will be removed in clinic approximately 3-4 weeks from your surgery date. You may shower on day of discharge. Wash incision gently with soap and water and pat dry. Do not soak incisions in bath water or swim for at least two weeks. Drainage from incision is common in first few weeks, but call if you have any questions or concerns. Medications: Please call if you have ANY questions about your medications. Please take sure that your immunosuppression medications are taken as directed by the medical staff(ie, timing is very important). Please discuss any new medications with the transplant team prior to starting. Tylenol is OK to take for pain control, but dose should be kept under 2 gm/day. Please discuss withyour care transition coordinator if you have any question about appropriate dose to take. Other Instructions: Call post-liver transplant clinic with questions [phone] or call [facility] at [phone] and ask for the liver information systems coordinator railroad conductor if you experience any of the following: - Worsening pain, nausea, or vomiting not reieved by medications - Temperature greater than 100.4 F or fever/chills - Redness around incision, drainage from incision, or wound edge separation - Chest pain, shortness of breath, persistent dizziness, swelling in one or both legs - Blood sugars consistently above 150 or one reading above 300 - Weight gain of greater than 5# in 24 hours Follow-Up Appointment: Your information systems coordinator will provide you with a calendar of your follow-up appointments prior to discharge. Lab Location: Home health care will draw your labs every Friday/. documented in this encounter Medications at Time of Discharge acetaminophen (TYLENOL) 325 MG tablet Take 3 tablets (975 mg total) by mouth every 8 hours. 200 tablet 05/03/2025 3:44 PM EST 04/19/2025 calcium-vitamin D 500 mg-5 mcg (200 unit) per tablet Take 1 tablet by mouth 2 times a day with meals. 60 tablet 2 05/03/2025 3:44 PM EST 04/19/2025 fluconazole (DIFLUCAN) 200 MG tablet Take 1 tablet (200 mg total) by mouth daily for 30 days. 30 tablet 05/03/2025 3:44 PM EST 04/19/2025 methocarbamoL (ROBAXIN) 500 MG tablet Take 2 tablets (1,000 mg total) by mouth 3 times a day. 180 tablet 05/03/2025 3:44 PM EST 05/02/2025 mycophenolate (CELLCEPT) 250 mg capsule Take 2 capsules (500 mg total) by mouth 2 times a day. 120 capsule 5 05/03/2025 3:44 PM EST 04/19/2025 naloxone (NARCAN) 4 mg/actuation Oolitic Apply 1 spray in one nostril if needed. Call 911. May repeat dose in other nostril if no response in 3 minutes. 2 each 1 04/21/2025 ondansetron (ZOFRAN-ODT) 8 MG disintegrating tablet Take 1 tablet (8 mg total) by mouth every 8 hours as needed for Nausea. 20 tablet 08/24/2024 pantoprazole (PROTONIX) 40 MG tablet Take 1 tablet (40 mg total) by mouth daily. 60 tablet 05/03/2025 3:44 PM EST 05/03/2025 polyethylene glycol (GLYCOLAX) 17 gram/dose powder Mix 1 capful (17 g) in 8 oz of liquid and drink by mouth daily as needed (Constipation) . 238 g 05/03/2025 3:44 PM EST 04/19/2025 senna-docusate (SENNOSIDES-DOCUSATE SODIUM) 8.6-50 mg per tablet Take 1 tablet by mouth at bedtime as needed for Constipation. 30 tablet 05/03/2025 3:44 PM EST 04/19/2025 sulfamethoxazole-tri methoprim (BACTRIM) 400-80 mg per tablet Take 1 tablet by mouth daily. 30 tablet 2 05/03/2025 3:44 PM EST 04/19/2025 ursodioL (ACTIGALL) 300 mg capsule Take 1 capsule (300 mg total) by mouth 2 times a day. 60 capsule 05/03/2025 3:44 PM EST 05/02/2025 valGANciclovir (VALCYTE) 450 mg tablet Take 1 tablet (450 mg total) by mouth daily. 30 tablet 2 05/03/2025 3:44 PM EST 04/19/2025 oxyCODONE (ROXICODONE) 5 MG immediate release tabletIndications:En d-stage liver disease (CMS-HCC) Take 2 tablets (10 mg total) by mouth every 6 hours as needed for Pain for up to 7 days. 56 tablet 05/03/2025 oxyCODONE (ROXICODONE) 5 MG immediate release tabletIndications:Edie phillips related donor renal transplant,Alcoholic cirrhosis of liver with ascites (CMS-HCC) Take 2 tablets (10 mg total) by mouth every 6 hours as needed for Pain for up to 7 days. 56 tablet 05/03/2025 3:44 PM EST 05/03/2025 5 aspirin 81 MG chewable tablet Chew 1 tablet (81 mg total) by mouth daily. 30 tablet 11 05/03/2025 3:44 PM EST 04/19/2025 5 lidocaine (LIDODERM) 5 % Place 2 patches onto the skin daily. Apply patch for 12 hours and then remove patch and leave off for 12 hours. 30 patch 05/02/2025 5 melatonin 3 mg Tab Take 1 tablet (3 mg total) by mouth at bedtime. 30 tablet 05/03/2025 3:44 PM EST 05/02/2025 5 predniSONE (DELTASONE) 5 MG tablet Take 4 tablets (20 mg total) by mouth daily. 120 tablet 2 05/03/2025 3:44 PM EST 04/19/2025 pregabalin (LYRICA) 100 MG capsuleIndications:L iving related donor renal transplant Take 1 capsule (100 mg total) by mouth 2 times a day for 30 days. 60 capsule 05/03/2025 3:44 PM EST 04/28/2025 tacrolimus (PROGRAF) 1 MG capsule Take 3 capsules (3 mg total) by mouth every morning AND 2 capsules (2 mg total) at bedtime. 600 capsule 5 05/03/2025 3:44 PM EST 05/03/2025 tacrolimus (PROGRAF) 1 MG capsule Take 2 capsules (2 mg total) by mouth every morning AND 3 capsules (3 mg total) at bedtime. 150 capsule 5 05/04/2025 5 traZODone (DESYREL) 50 MG tablet Take 1 tablet (50 mg total) by mouth at bedtime for 30 days. 30 tablet 05/03/2025 3:44 PM EST 05/02/2025 5 documented as of this encounter Progress Notes * Tresa Beltran, PharmD - 05/03/2025 2:07 PM EST Transplant Pharmacy Note Discharge Medication Education, Evaluation and Transition Name: Mindy Wade Discharge prescriptions were ordered from Discharge Pharmacy as per med list below. Confirmed that there are no barriers with these prescriptions Discharge education provided to patient and caregiver(s) present: The patient was given a completed medication instruction card, according to discharge instructions (see medication list below) Administration times for medications were noted on card. Immunosuppression schedule as per Education Note by information systems coordinator earlier this admission. Reviewed discharge medications and importance of adherence with patient A weekly pillbox was provided and patient was instructed on how to use med card to fill pillbox Pillbox at discharge (select one): Patient will fill pillbox at home Information about medications reviewed, including: Brand and generic names Strength(s) supplied; instructed patient to confirm strength and dose while filling pillbox Dose/frequency Indication Expected duration Other drug-specific clinical pearls Importance of adherence in preventing rejection Personal assessment of patient's medication knowledge: good Expected caregiver involvement?: great, plans to fill pill box Need for additional education in clinic? (If significant deficits, communicate with information systems coordinator): Standard continual education Future medications to be obtained from, if known: TBD, considering local pharmacy Financial concerns (if any): Apixaban and rivaroxaban both expensive for patient and she was not eligible for a 30 day trial card, after discussion with the team, opted for no Caprini ppx after hospitalization. Current Discharge Medication List START taking these medications Details lidocaine (LIDODERM) 5 % Place 2 patches onto the skin daily. Apply patch for 12 hours and then remove patch and leave off for 12 hours. Qty: 30 patch, Refills: 0 melatonin 3 mg Tab Take 1 tablet (3 mg total) by mouth at bedtime. Qty: 30 tablet, Refills: 0 methocarbamoL (ROBAXIN) 500 MG tablet Take 2 tablets (1,000 mg total) by mouth 3 times a day. Qty: 180 tablet, Refills: 0 pantoprazole (PROTONIX) 40 MG tablet Take 1 tablet (40 mg total) by mouth daily. Qty: 60 tablet, Refills: 0 tacrolimus (PROGRAF) 1 MG capsule Take 3 capsules (3 mg total) by mouth every morning AND 2 capsules (2 mg total) at bedtime. Qty: 600 capsule, Refills: 5 traZODone (DESYREL) 50 MG tablet Take 1 tablet (50 mg total) by mouth at bedtime for 30 days. Qty: 30 tablet, Refills: 0 ursodioL (ACTIGALL) 300 mg capsule Take 1 capsule (300 mg total) by mouth 2 times a day. Qty: 60 capsule, Refills: 0 acetaminophen (TYLENOL) 325 MG tablet Take 3 tablets (975 mg total) by mouth every 8 hours. Qty: 200 tablet, Refills: 0 aspirin 81 MG chewable tablet Chew 1 tablet (81 mg total) by mouth daily. Qty: 30 tablet, Refills: 11 calcium-vitamin D 500 mg-5 mcg (200 unit) per tablet Take 1 tablet by mouth 2 times a day with meals. Qty: 60 tablet, Refills: 2 fluconazole (DIFLUCAN) 200 MG tablet Take 1 tablet (200 mg total) by mouth daily for 30 days. Qty: 30 tablet, Refills: 0 mycophenolate (CELLCEPT) 250 mg capsule Take 2 capsules (500 mg total) by mouth 2 times a day. Qty: 120 capsule, Refills: 5 naloxone (NARCAN) 4 mg/actuation Oolitic Apply 1 spray in one nostril if needed. Call 911. May repeat dose in other nostril if no response in 3 minutes. Qty: 2 each, Refills: 1 oxyCODONE (ROXICODONE) 5 MG immediate release tablet Take 2 tablets (10 mg total) by mouth every 6 hours as needed for Pain for up to 7 days. Qty: 56 tablet, Refills: 0 Associated Diagnoses: Living related donor renal transplant; Alcoholic cirrhosis of liver with ascites (CMS-HCC) polyethylene glycol (GLYCOLAX) 17 gram/dose powder Mix 1 capful (17 g) in 8 oz of liquid and drink by mouth daily as needed (Constipation). Qty: 238 g, Refills: 0 predniSONE (DELTASONE) 5 MG tablet Take 4 tablets (20 mg total) by mouth daily. Qty: 120 tablet, Refills: 2 pregabalin (LYRICA) 100 MG capsule Take 1 capsule (100 mg total) by mouth 2 times a day for 30 days. Qty: 60 capsule, Refills: 0 Associated Diagnoses: Living related donor renal transplant senna-docusate (SENNOSIDES-DOCUSATE SODIUM) 8.6-50 mg per tablet Take 1 tablet by mouth at bedtime as needed for Constipation. Qty: 30 tablet, Refills: 0 sulfamethoxazole-trimethoprim (BACTRIM) 400-80 mg per tablet Take 1 tablet by mouth daily. Qty: 30 tablet, Refills: 2 valGANciclovir (VALCYTE) 450 mg tablet Take 1 tablet (450 mg total) by mouth daily. Qty: 30 tablet, Refills: 2 CONTINUE these medications which have NOT CHANGED Details ondansetron (ZOFRAN-ODT) 8 MG disintegrating tablet Take 1 tablet (8 mg total) by mouth every 8 hours as needed for Nausea. Qty: 20 tablet, Refills: 0 STOP taking these medications carvediloL (COREG) 3.125 MG tablet Comments: Reason for Stopping: furosemide (LASIX) 20 MG tablet Comments: Reason for Stopping: gabapentin (NEURONTIN) 800 MG tablet Comments: Reason for Stopping: spironolactone (ALDACTONE) 50 MG tablet Comments: Reason for Stopping: ondansetron (ZOFRAN) 4 MG tablet Comments: Reason for Stopping: Tresa Beltran PharmD Solid Organ Transplant Clinical Bi Tester Contact via [employer] Secure Chat * Shaneka Hector, PT - 05/02/2025 11:39 AM EST Physical Therapy Treatment Name: Mindy Wade : 1990 Attending Physician: Ludin Jose MD Admission Diagnosis: Liver transplant recipient (CMS-HCC) [Z94.4] S/P liver transplant (CMS-HCC) [Z94.4] End stage liver disease (CMS-HCC) [K72.10] Date: 05/02/2025 Room: [address] [place] [address] Reviewed Pertinent hospital course: Yes Hospital Course PT/OT: 35 yo female presenting to OR 04/18 for living donor liver txp, extubated onunit post-op. Post-op ab US: WNL. 04/23: Transferred to SICU, for melena, hypotension, given 4 u pRBC; asthma exacerbation resulting in bronchospasm and airway loss requiring intubation. Small bowel enteroscopy with GI: no evidence of active bleeding but several blood clots seen in duodenum. Return to OR: emergency ex lap, revision of JJ anastomosis, gastric lavage. 04/24: extubated. 04/25: RUE duplex (+) SVT. 04/28: CT abdomen/pelvis showing liver transplant. 04/29: US abdomen/pelvis- normal appearance of liver transplant. 05/02 IR deferring on intervention at this time. 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 Pt tolerated therapy well with progressing overall with distance ambulated. Pt ambulated 125' to the stair well and able to do x2 steps with CGA before returning back to gait activity 2/2 onset of fatigue. During 125' back to room, SNUFF PACKING MACHINE OPERATOR used instead of RW and pt able to ambulate at decreased sushma, however steady overall. Pt educated on importance of smaller bouts of activity to help improve endurance. Pt will continue to benefit from skilled PT to further improve mobility and balance to maximize independence and safety. Recommendation Recommendation: Home PT Equipment Recommended: Rolling walker AM-PAC 6 Clicks Basic Mobility Inpatient Short Form: PT 6 Clicks Score: 18 Mobility Recommendations for Staff Patient ability: Patient ambulates in hallway Assist needed: with 1 person assist Equipment/ Precautions needed: Requires assistive device, use gait belt Requires Assistive Device: Rolling walker Cognition Overall Cognitive Status: Within Functional Limits Cognitive Assessment: Arousal/ Alertness;Orientation Level;Behavior;Following Commands;Safety Judgment;Insight Arousal/Alertness: Alert Orientation Level: Oriented X4 Behavior: Appropriate;Cooperative Following Commands: Follows all commands and directions without difficulty Safety Judgment: Good awareness of safety precautions Insight: Demonstrated intact insight into limitation and abilities to complete ADL's safely Pain Pain Score: 7 Pain Location: Abdomen Pain Descriptors: Aching;Discomfort Pain Intervention(s): Ambulation/increased activity;Repositioned Therapist reported pain to: RN monitoring Mobility Bed Mobility Supine to Sit: Supervision;head of bed elevated;towards the right Transfers Sit to Stand: Stand-by assistance;increased time to complete task;up to assistive device Sit to Stand Assistive Device: Rolling walker Stand to Sit: Stand-by assistance Gait Distance: 125+125 Level of Assistance: Stand By assistance Assistive Device: Rolling walker Gait Characteristics: Steady;swing-through pattern;decreased sushma;R decreased step length;L decreased step length;Increased trunk flexion (Gait activity to stairs w/ RW; gait activity from stairs w/o RW but with SNUFF PACKING MACHINE OPERATOR from pt's spouse) Unable to progress further due to: fatigue Stairs Number of Stairs: 2 Stair Management Assistance: Contact Guard assist Stair Management Technique- Ascending: One rail R;Alternating pattern;Forwards Stair Management Technique-Descending: One rail R;Backwards Balance Sitting - Static: Independent Sitting - Dynamic: Supervision Standing - Static: Stand-by assistance;With Assistive Device Standing-Static Assistive Device: Rolling walker Standing - Dynamic: Stand-by assistance;With Assistive Device Standing-Dynamic Assistive Device: Rolling walker (& SNUFF PACKING MACHINE OPERATOR) Gait belt used: Informed patient that they were identified as a high fall risk patient and educatedon the importance of gait belt use for safety. Patient declining gait belt usage despite education on benefits and purpose of gait belt. Patient educated on risk of fall with possible injury. Patientverbalizes understanding and continues to refuse gait belt. Functional mobility completed without the use of a gait belt. Position after Treatment and Safety Handoff Position after treatment and safety handoff Position after therapy session: Bed Details: RN notified;Call light/ needs within reach Alarms: Bed Alarms Status: Other (unchanged) Goals Goals Met: Bed mobility Collaborated with: Patient Patient Stated Goal: to decrease pain during mobility Goals to be met by: 05/03/25 Patient will transition from supine to sit: Independent Patient will transition from sit to supine: Will tolerate assessment Patient will transfer from sit to stand: Independent Patient will ambulate: Modified Independent, distance (in feet), with assistive device Ambulation Assistance Device: Rolling walker Distance (in feet): 150' Patient will go up / down stairs: Will tolerate assessment Long-term goal to be met by: 05/26/25 Hemodialysis Patient Care Specialist Goal : Pt will ambulate 250' independently without AD Patient/Family Education Educated patient and patient's family on the role of physical therapy, goals, plan of care, importance of increased activity, discharge recommendations, transfer training, gait training, and stair training and fall prevention strategies, including need for supervision/ assistance with OOB activity and use of call light; patient verbalized understanding. Handout(s) issued: None. Plan Plan Treatment/Interventions: Endurance training, Patient/family training, Equipment eval/education, Gait training, Therapeutic Activity, Therapeutic Exercise, Stair Training PT Frequency during hospitalization: minimum 3x/week The plan of care and recommendations assesses the patient's and/or caregiver's readiness, willingness, and ability to provide or support functional mobility and ADL tasks as needed upon discharge. Time Start Time: 1113 Stop Time: 1128 Time Calculation (min): 15 min Charges $Gait/Mobility: 8-22 mins Problem List Problem List[1] Past 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 Past 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: Diagnosis [...] MD; Location: ENDOSCOPY; Service: Gastroenterology; Laterality: N/A; LIVER BIOPSY N/A 04/23/2025 Procedure: EMERGENCYEXPLORATORY LAP, REVISION OF JJ ANASTOMSIS, GASTRIC LAVAGE; Surgeon: Alejandra Wilson MD; Location: OR; Service: Transplant; Laterality: N/A; LIVER TRANSPLANTATION N/A 04/18/2025 Procedure: LIVING DONOR LIVER TRANSPLANT; Surgeon: Ludin Jose MD; Location: OR; Service: Transplant; Laterality: N/A; PUSH ENTEROSCOPY N/A 04/23/2025 Procedure: PUSH ENTEROSCOPY; Surgeon: Kelsey Moyer MD; Location: ENDOSCOPY; Service: Gastroenterology; Laterality: N/A; UPPER GASTROINTESTINAL ENDOSCOPY 09/21/2022 [1] Patient Active Problem List Diagnosis Alcoholic cirrhosis of liver with ascites (CMS-HCC) Encounter for pre-transplant evaluation for liver transplant High risk surgery, pre-operative cardiovascular examination High risk due to smoking Other ascites Jaundice Fatigue Immunosuppression (CMS-HCC) Other specified abnormal findings of blood chemistry Acute bacterial bronchitis Asthma Alcohol use Alcohol use disorder, severe, dependence (CMS-HCC) Bite Chemical dependency (CMS-HCC) Cholelithiasis without obstruction Contusion of rib Cough End-stage liver disease (CMS-HCC) Cyst of kidney, acquired Disease of gallbladder, unspecified Disease of stomach and duodenum, unspecified Elevated bilirubin Esophageal varices without bleeding (CMS-HCC) Essential (primary) hypertension Exposure to COVID-19 virus Finger sprain Hepatitis C virus infection Hypokalemia Hyponatremia Lesion of liver Low back pain Nausea New onset seizure (CMS-HCC) Opiate dependence, continuous (CMS-HCC) Other diseases of stomach and duodenum Other disorders of bilirubin metabolism Portal hypertension (CMS-HCC) Shingles Splenomegaly, not elsewhere classified Strep throat Strep throat exposure Varicose veins of other specified sites Viral syndrome * Tresa Beltran PharmD - 05/02/2025 11:35 AM EST Transplant Pharmacy Note Transplant pharmacy is following Mindy Wade during hospital admission and will perform the following activities related to transplant pharmacotherapy: 1. Ensure appropriate management and titration of immunosuppressive, prophylactic, and other supportive care medications; 2. Monitor for any adverse drug effects; 3. Review the patient's medication profile for any potential drug interaction. Tresa Beltran PharmD Solid Organ Transplant Clinical Bi Tester Contact via [employer] Secure Chat * NANCY Randhawa - 05/02/2025 10:17 AM EST Transplant Surgery Progress Note Name: Mindy Wade CSN: [id number] Date: 05/02/2025 10:17 AM OR Date: 04/18/2025 Subjective Sp LDLT Afebrile HDS Pain is controlled with PO pain regimen OOB, ambulating Voiding spontaneously Having bowel function, melena last night 2/2 prior JJ bleed Denies nausea/vomiting Not sleeping well Objective Vitals: Temp: [97.4 ??F (36.3 ??C)-98.7 ??F (37.1 ??C)] 98 ??F (36.7 ??C) Heart Rate: [80-93] 83 Resp: [14-18] 16 BP: (106-116)/(67-78) 106/71 I/O: Intake/Output Summary (Last 24 hours) at 05/02/2025 1017 Last data filed at 05/02/2025 1015 Gross per 24 hour Intake 600 ml Output 910 ml Net -310 ml Physical Exam: Constitutional: awake, alert, no acute distress HEENT: normocephalic, atraumatic Respiratory: normal effort, equal chest rise, RA Cardiovascular: RRR, normotensive, distal pulses intact Abdomen: Soft, appropriately tender. drains x1 serous Extremities: No gross deformities, acyanotic, skin cool and dry. (+) non-pitting edema to BLE Neuro: Alert. Psych: Affect appropriate for situation. Labs: Recent Labs 04/30/25 0512 05/01/25 0609 05/02/25 0534 WBC 4.3 7.5 5.8 HGB 7.2* 8.0* 7.3* HCT 21.2* 23.4* 20.8* PLT 87* 102* 109* Recent Labs 04/30/25 0512 05/01/25 0609 05/02/25 0534 NA 136 136 135 K 3.5 4.1 4.1 CL 105 104 103 CO2 23 25 26 BUN 18 17 26* CREATININE 0.87 0.79 0.99 GLUCOSE 106* 85 79 CALCIUM 8.0* 8.1* 8.3* MG 1.7 1.7 1.8 PHOS 2.2 2.7 3.0 Recent Labs 04/30/25 1659 05/01/25 0002 05/01/25 0738 05/01/25 1114 05/01/25 2358 05/02/25 0558 POCGMD 191* 168* 100 110* 114* 85 Recent Labs 04/30/25 0512 05/01/25 0609 05/02/25 0534 AST 85* 113* 94* ALT 98* 140* 135* BILITOT 3.1* 3.5* 3.2* BILIDIRECT 2.10* 2.21* 2.02* ALKPHOS 600* 839* 869* ALBUMIN 3.2* 3.2* 3.3* 3.3* 3.3* 3.3* Recent Labs 05/01/25 1021 INR 1.0 PROTIME 13.8 Imaging: MRI Abdomen W and WO contrast Result Date: 05/02/2025 EXAM: MRI ABDOMEN W AND WO CONTRAST INDICATION: concern for stricture, rising LFTs DATE: 05/01/2025 10:28 PM EST COMPARISON: Ultrasound and CT dated 04/29/2025 TECHNIQUE: Multisequence MR evaluation of the abdomen was performed prior to and following the intravenous administration of 6.5 mL of Gadavist. 3-D MRCP images were acquired through the liver in the axial and coronal planes. FINDINGS: There is a small right pleural effusion. Right lower lobe atelectasis is evident. Bandlike opacity in the left lower lobe is also consistent with atelectasis. The right lobe liver transplant is mildly heterogeneous in T2 signal with mild increased signal medially in segment 8/5. The background hepatic signal is otherwise normal. There is no evidence of intrahepatic biliary ductal dilation. The intrahepatic bile ducts are diminutive and not well seen. There are also partially obscured by periportal edema. Following contrast administration, the liver is mildly heterogeneous in enhancement corresponding to the T2 signal. Due to contrast bolus timing, the hepatic artery is better seen on the recent CT. The arteries followed to the denita hepatis. The portal vein is patent. In the right hepatic vein, centrally adjacent to the inferior vena cava on the postcontrast images, there is signal loss. It is unclear if this is artifactual due to adjacent clips and dephasing or represents a true filling defect. The hepatic veins otherwise opacified. The vein graft along the cut surface of the transplantis patent. The spleen is enlarged measuring 14.4 cm in craniocaudal dimension. The spleen is normalin enhancement. The pancreas appears normal. There is no evidence of pancreatic duct dilation. The adrenal glands are normal. The kidneys are symmetric in enhancement. There is a 7 mm left renal cyst. There is no evidence of collecting system dilation. There is no evidence of retroperitoneal adenopathy. The aorta is normal in caliber. The inferior vena cava is patent. Hepatic vasculature is as noted above. Paraesophageal varices are noted. The GI tract is normal in caliber. There is a large stool burden. There is trace perihepatic fluid. There is a perihepatic surgical drain. The visualized bone marrow signal is normal. IMPRESSION: Right lobe liver transplant. No evidence of biliary ductal dilation. Signal loss in theright hepatic vein adjacent to the inferior vena cava which may be artifactual in nature versus a filling defect. Report Verified by: Veronique Dick MD at 05/02/2025 9:24 AM EST Assessment/Plan Mindy Wade is a 35 y.o. 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 JJredone. - follow-up US 04/25 wnl - albumin+lasix today - hold on splenic artery embo; if LFTs continue to improve, dc tmrw - if LFTs up tmrw, plan to consult IR for venogram with pressure measurement /RENAL: - Strict I/Os - UOP unmeasured - Cr NL - lasix for acites Estimated Creatinine Clearance: 71.4 mL/min (based on SCr of 0.99 mg/dL). HEME: - Hgb stable - Transfuse to keep hgb >7g ID: - AF - PPX: Valganciclovir, SS Bactrim, and Fluconazole IMMUNOSUPPRESSION: - FK Goal: standard - Steroids per taper - Cellcept ENDO: - HDSSI NEURO: A+O - Multimodal pain reg - oxy 15 q4 PPX: SQH, PPI BID ACCESS: DL PICC DISPO: 8ccp, planning for home with [facility] tmrw if LFTs continue to downtrend NANCY RANDHAWA Transplant Surgery Cosigned by Jose Daniel MD at 05/02/2025 5:20 PM EST Associated attestation - Jose Daniel MD - 05/02/2025 5:20 PM EST Transplant Surgery Attending Attestation I have seen and examined the patient and agree with the plan. All points of care were reviewed in amultidisciplinary fashion with the housestaff and teams involved. Immunosuppression was reviewed and adjusted accordingly. This note represents care provided with the multidisciplinary team on 05/02/2025. Patient feeling less distended today Start ursodiol Continue albumin and lasix to help with post-transplant ascites Discontinue drain Liver enzymes are improved today, if continue to improve will consider discharge, otherwise patientwill need liver biopsy and venography for pressure measurements to rule out venous outflow obstruction Jose Daniel MD Transplant and Hepatobiliary Surgery [phone] (cell) * Giovanny Louis MD - 05/01/2025 6:03 AM EST Transplant Surgery Progress Note Name: Mindy Wade CSN: [id number] Date: 05/01/2025 6:03 AM OR Date: 04/18/2025 Subjective Overnight, pt with complaints of itchiness that was only slightly managed with atarax x1 and benadryl. Pt sleeping comfortable this am. Otherwise NAEO. Continued high drain output but improved with albumin + lasix x 1. Objective Vitals: Temp: [97.6 ??F (36.4 ??C)-98.1 ??F (36.7 ??C)] 97.6 ??F (36.4 ??C) Heart Rate: [87-98] 90 Resp: [16-18] 17 BP: (105-114)/(61-73) 108/73 I/O: Intake/Output Summary (Last 24 hours) at 05/01/2025 0603 Last data filed at 05/01/2025 0352 Gross per 24 hour Intake 1960 ml Output 2025 ml Net -65 ml Physical Exam: Constitutional: awake, alert, no acute distress HEENT: normocephalic, PERRL, outer ears appearing normal, no nasal drainage, moist oral mucous membranes Respiratory: normal effort Cardiovascular: RRR, normotensive Abdomen: Soft, appropriately tender. drains x2 serous/ SS Extremities: No gross deformities, acyanotic, skin cool and dry. (+) non-pitting edema to BLE Neuro: Alert. Psych: Affect appropriate for situation. Labs: Recent Labs 04/28/25 0637 04/29/25 0525 04/30/25 0512 WBC 6.2 5.3 4.3 HGB 8.4* 7.9* 7.2* HCT 24.1* 23.3* 21.2* PLT 111* 92* 87* Recent Labs 04/28/25 0637 04/29/25 0525 04/30/25 0512 NA 136 135 136 K 3.7 4.1 3.5 CL 106 108 105 CO2 23 23 23 BUN 17 18 18 CREATININE 0.68 0.75 0.87 GLUCOSE 105* 95 106* CALCIUM 7.5* 7.7* 8.0* MG 1.9 1.7 1.7 PHOS 2.4 3.0 2.2 Recent Labs 04/29/25 2212 04/30/25 0844 04/30/25 1208 04/30/25 1547 04/30/25 1659 05/01/25 0002 POCGMD 127* 98 121* 158* 191* 168* Recent Labs 04/28/25 0637 04/29/25 0525 04/30/25 0512 AST 66* 62* 85* ALT 104* 94* 98* BILITOT 3.4* 3.1* 3.1* BILIDIRECT 2.28* 2.02* 2.10* ALKPHOS 397* 452* 600* ALBUMIN 2.2* 2.2* 2.4* 2.4* 3.2* 3.2* No results for input(s): INR , PROTIME in the last 72 hours. Imaging: No results found. Assessment/Plan Mindy Wade is a 35 y.o. 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 who is s/p living liver transplant with re-op for J-J anastomosis PLAN: - monitor strict I&Os - albumin and lasix for drain replacement/ continued ascites - continue IS/ monitoring - PT/OT - OOB as tolerated - pending 3D liver volume maping by radiology - DC dilaudid and increase oral PRN oxy dosing CV: HDS - Coreg held - CMU monitoring PULM: ROLA - encourage IS/OOB FEN/GI: ETOH/HCV s/p LDLT 04/18 - Diet: regular - Replete Electrolyte PRN - Bowel regimen held - bASA - POD1 Liver US normal, US 04/21 stable - s/p re-op for GI bleeding/Acute blood loss anemia requiring 5u pRBC, 2FFP, 2 cryo, 1 platelet. JJredone. - follow-up US 04/25 wnl - PRN albumin for drain replacement - waiting on 3D liver volume measurements by radiology team. +/- need for potential splenic artery imbolization /RENAL: - Strict I/Os - UOP unmeasured - Cr NL - lasix for acites Estimated Creatinine Clearance: 81.2 mL/min (based on SCr of 0.87 mg/dL). HEME: - Hgb 8.4g - Transfuse to keep hgb >7g ID: - AF - PPX: Valganciclovir, SS Bactrim, and Fluconazole IMMUNOSUPPRESSION: - FK Goal: standard - Steroids per taper - Cellcept ENDO: - HDSSI NEURO: A+O - Multimodal pain reg - DC dilaudid and increase Oxy PRN dosing PPX: SQH, PPI ACCESS: DL PICC Final plan per attending physician DISPO: 8ccp, planning for IPR at d/c GIOVANNY LOUIS MD Transplant Surgery This note was completely edited, written and [...] current evaluation and management for this patient. Cosigned by Ludin Jose MD at 05/08/2025 9:05 AM EST Associated attestation - Ludin Jose MD - 05/08/2025 9:05 AM EST Transplant Surgery Attending Attestation I have seen and examined the patient and agree with the plan. All points of care were reviewed in amultidisciplinary fashion with the housestaff and teams involved. Immunosuppression was reviewed and adjusted accordingly. This note represents care provided with the multidisciplinary team on 05/01/25. Ludin Jose MD [employer] Merchandiser of Transplant Surgery [phone] (m) * Quan Yates III, MD - 04/30/2025 10:38 AM EST LD Surgery Progress note Liver Volumetrics reviewed Liver volume of right lobe graft from CT scan yesterday estimated to be 1415 cc. After reduction of 10% for estimated weight of blood volume and an additional 5% taken away for overestimation of liver volume based on CT imaging: Estimated graft weight is 1203 gm. Based on her current weight - this would reflect a GRWR of 1.68. Still with high drain output - albeit down a little from yesterday. TTE from yesterday pending. US with good hepatic artery waveforms - no evidence of high resistance with we would expect with portal hyperperfusion. Hepatic vein waveforms are more monophasic than they were early post-op. This could be do to fluid overload state - which she depicts clinically - or from ouf flow obstruction of graft. Recommend continued diuresis with albumin and assess ascites production over the ensuing days. --- Akash Yates III, MD Transplant Surgery (cell) * Gilmer Rivera CNP - 04/30/2025 6:54 AM EST Transplant Surgery Progress Note Name: Mindy Wade CSN: [id number] Date: 04/30/2025 6:54 AM OR Date: 04/18/2025 Subjective Sleeping this morning but awake easily. Slept well. Denies N/V tolerating regular diet. Complains of somewhat worsening pain to the right chest wall and right flank region; which she thinks is from working with PT and being more active yesterday. Was able to shower herself yesterday. Denies urinary complaints. Continued high drain output but somewhat less than prior 24 period. Patient wanted to discuss her pain regimen and imaging from yesterday. I obliged and answered her questions to satisfaction. Otherwise, will get more lasix and albumin today, and tolerated x 2 rounds of albumin/ lasix yesterday. Continues on IS/ monitoring. Objective Vitals: Temp: [97.9 ??F (36.6 ??C)-98.3 ??F (36.8 ??C)] 97.9 ??F (36.6 ??C) Heart Rate: [84-94] 84 Resp: [16-18] 18 BP: (108-115)/(64-76) 114/68 I/O: Intake/Output Summary (Last 24 hours) at 04/30/2025 0654 Last data filed at 04/30/2025 0600 Gross per 24 hour Intake 780 ml Output 2822 ml Net -2042 ml Physical Exam: Constitutional: awake, alert, no acute distress HEENT: normocephalic, PERRL, outer ears appearing normal, no nasal drainage, moist oral mucous membranes Respiratory: normal effort Cardiovascular: RRR, normotensive Abdomen: Soft, appropriately tender. drains x2 serous/ SS Extremities: No gross deformities, acyanotic, skin cool and dry. (+) non-pitting edema to BLE Neuro: Alert. Psych: Affect appropriate for situation. Labs: Recent Labs 04/28/25 0604/29/25 0504/30/25 0512 WBC 6.2 5.3 4.3 HGB 8.4* 7.9* 7.2* HCT 24.1* 23.3* 21.2* PLT 111* 92* 87* Recent Labs 04/28/25 0637 04/29/25 0525 04/30/25 0512 NA 136 135 136 K 3.7 4.1 3.5 CL 106 108 105 CO2 23 23 23 BUN 17 18 18 CREATININE 0.68 0.75 0.87 GLUCOSE 105* 95 106* CALCIUM 7.5* 7.7* 8.0* MG 1.9 1.7 1.7 PHOS 2.4 3.0 2.2 Recent Labs 04/28/25 2310 04/29/25 0506 04/29/25 1154 04/29/25 1258 04/29/25 1704 04/29/25 2212 POCGMD 131* 97 150* 169* 151* 127* Recent Labs 04/28/25 0637 04/29/25 0525 04/30/25 0512 AST 66* 62* 85* ALT 104* 94* 98* BILITOT 3.4* 3.1* 3.1* BILIDIRECT 2.28* 2.02* 2.10* ALKPHOS 397* 452* 600* ALBUMIN 2.2* 2.2* 2.4* 2.4* 3.2* 3.2* No results for input(s): INR , PROTIME in the last 72 hours. Imaging: US Duplex [id number] Comp Result Date: 04/29/2025 EXAM: US ABDOMEN LIMITED EXAM: US DUPLEX [id number] COMPLETE INDICATION: Post-op liver transplant, right lobe transplant DATE: 04/29/2025 10:42 AM EST COMPARISON: Ultrasound dated 04/25/2025, CT dated 04/29/2025 Technique: Grayscale imaging was performed for evaluation of the liver, gallbladder, common bile duct, pancreas, and right kidney; with limited grayscale and color Doppler evaluation of the upper abdominal aorta and inferior vena cava. Color and spectral (duplex) Doppler analysisof the hepatic vasculature was also performed. FINDINGS: The transplant liver is normal in echogenicity and homogeneous in echotexture. There is no evidence of intrahepatic or extrahepatic biliary ductal dilation. The common duct measures 4 mm at the denita hepatis. The gallbladder is surgically absent. There is a small amount of perihepatic fluid. The pancreas is obscured. The abdominal aorta is obscured. The right kidney measures 11.6 cm in maximal length. Renal echogenicity is normal. There is no evidence of collecting system dilation. Duplex Doppler interrogation of the hepatic vasculaturewas performed. Antegrade flow is seen within the main and right portal vein. Antegrade flow seen with within the main and right hepatic arteries. The resistive index in the main hepatic artery is 0.58 and in the right hepatic artery is 0.56. The right hepatic vein is patent. A patent hepatic vein graft is seen along the medial margin of the liver. The hepatic veins demonstrate flow towards the inferior vena cava. The retrohepatic inferior vena cava is patent. IMPRESSION: ABDOMINAL ULTRASOUND Normal sonographic appearance of the transplant liver. ABDOMINAL DOPPLER Patent hepatic vasculature with normal arterial waveforms. Report Verified by: Veronique Dick MD at 04/29/2025 12:45 PM EST US Abdomen Limited Result Date: 04/29/2025 EXAM: US ABDOMEN LIMITED EXAM: US DUPLEX [id number] COMPLETE INDICATION: Post-op liver transplant, right lobe transplant DATE: 04/29/2025 10:42 AM EST COMPARISON: Ultrasound dated 04/25/2025, CT dated 04/29/2025 Technique: Grayscale imaging was performed for evaluation of the liver, gallbladder, common bile duct, pancreas, and right kidney; with limited grayscale and color Doppler evaluation of the upper abdominal aorta and inferior vena cava. Color and spectral (duplex) Doppler analysisof the hepatic vasculature was also performed. FINDINGS: The transplant liver is normal in echogenicity and homogeneous in echotexture. There is no evidence of intrahepatic or extrahepatic biliary ductal dilation. The common duct measures 4 mm at the denita hepatis. The gallbladder is surgically absent. There is a small amount of perihepatic fluid. The pancreas is obscured. The abdominal aorta is obscured. The right kidney measures 11.6 cm in maximal length. Renal echogenicity is normal. There is no evidence of collecting system dilation. Duplex Doppler interrogation of the hepatic vasculaturewas performed. Antegrade flow is seen within the main and right portal vein. Antegrade flow seen with within the main and right hepatic arteries. The resistive index in the main hepatic artery is 0.58 and in the right hepatic artery is 0.56. The right hepatic vein is patent. A patent hepatic vein graft is seen along the medial margin of the liver. The hepatic veins demonstrate flow towards the inferior vena cava. The retrohepatic inferior vena cava is patent. IMPRESSION: ABDOMINAL ULTRASOUND Normal sonographic appearance of the transplant liver. ABDOMINAL DOPPLER Patent hepatic vasculature with normal arterial waveforms. Report Verified by: Veronique Dick MD at 04/29/2025 12:45 PM EST Assessment/Plan Mindy Wade is a 35 y.o. 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 who is s/p living liver transplant with re-op for J-J anastomosis PLAN: - monitor strict I&Os - albumin and lasix for drain replacement/ continued ascites - continue IS/ monitoring - PT/OT - OOB as tolerated - pending 3D liver volume maping by radiology - DC dilaudid and increase oral PRN oxy dosing CV: HDS - Coreg held - CMU monitoring PULM: ROLA - encourage IS/OOB FEN/GI: ETOH/HCV s/p LDLT 04/18 - Diet: regular - Replete Electrolyte PRN - Bowel regimen held - bASA - POD1 Liver US normal, US 04/21 stable - s/p re-op for GI bleeding/Acute blood loss anemia requiring 5u pRBC, 2FFP, 2 cryo, 1 platelet. JJredone. - follow-up US 04/25 wnl - PRN albumin for drain replacement - waiting on 3D liver volume measurements by radiology team. +/- need for potential splenic artery imbolization /RENAL: - Strict I/Os - UOP unmeasured - Cr NL - lasix for acites Estimated Creatinine Clearance: 89.5 mL/min (based on SCr of 0.87 mg/dL). HEME: - Hgb 8.4g - Transfuse to keep hgb >7g ID: - AF - PPX: Valganciclovir, SS Bactrim, and Fluconazole IMMUNOSUPPRESSION: - FK Goal: standard - Steroids per taper - Cellcept ENDO: - HDSSI NEURO: A+O - Multimodal pain reg - DC dilaudid and increase Oxy PRN dosing PPX: SQH, PPI ACCESS: DL PICC Final plan per attending physician DISPO: 8ccp, planning for IPR at d/c Gilmer Rivera CNP Transplant Surgery This note was completely edited, written and [...] current evaluation and management for this patient. Cosigned by Ludin Jose MD at 05/08/2025 9:05 AM EST Associated attestation - Ludin Jose MD - 05/08/2025 9:05 AM EST Transplant Surgery Attending Attestation I have seen and examined the patient and agree with the plan. All points of care were reviewed in amultidisciplinary fashion with the housestaff and teams involved. Immunosuppression was reviewed and adjusted accordingly. This note represents care provided with the multidisciplinary team on 04/30/25. Ludin Jose MD [employer] Merchandiser of Transplant Surgery [phone] (m) * Manisha Barrios, OT - 04/29/2025 4:58 PM EST Occupational Therapy Treatment Name: Mindy Wade : 1990 Attending Physician: Ludin Jose MD Admission Diagnosis: Liver transplant recipient (CMS-HCC) [Z94.4] S/P liver transplant (CMS-HCC) [Z94.4] End stage liver disease (CMS-HCC) [K72.10] Date: 04/29/2025 Room: [address] [place] [address] Reviewed Pertinent hospital course: Yes Hospital Course PT/OT: 35 yo female presenting to OR 04/18 for living donor liver txp, extubated onunit post-op. Post-op ab US: WNL. 04/23: Transferred to SICU, for melena, hypotension, given 4 u pRBC; asthma exacerbation resulting in bronchospasm and airway loss requiring intubation. Small bowel enteroscopy with GI: no evidence of active bleeding but several blood clots seen in duodenum. Return to OR: emergency ex lap, revision of JJ anastomosis, gastric lavage. 04/24: extubated. 04/25: RUE duplex (+) SVT. 04/28: CT abdomen/pelvis showing liver transplant. 04/29: US abdomen/pelvis- normal appearance of liver transplant. chart reviewed 04/29 Relevant PMH : latent TB, anxiety, depression, ESLD 2/2 ETOH and HCV Precautions: n/a Activity Level: Activity as tolerated Assist: None Recommendation Recommendation: Home OT Equipment Recommendations: Tub Transfer Bench Tub Transfer Bench Justification: Patient is at risk to fall in shower environment, Patient has decreased activity tolerance requiring use of seat during bathing tasks Assessment Assessment: Decreased activity tolerance, Decreased Balance, Decreased ADL status, Decreased self-care transfers, Decreased Functional Mobility, Decreased cognition, Decreased IADLs Prognosis for OT goals: Good Outcome Measures AM-PAC 6 Clicks Daily Activity Inpatient Short Form: OT 6 Clicks Score: 20 Cognition Overall Cognitive Status: Within Functional Limits Arousal/Alertness: Alert Orientation Level: Oriented X4 Behavior: Cooperative;Distracted;Motivated Following Commands: Follows all commands and directions without difficulty Safety Judgment: Impulsive (does follow safety instructions) Insight: Demonstrated decreased insight into limitations and abilities to complete ADLs safely Pain Pain Score: (did not rate) Pain Location: Abdomen Pain Descriptors: Discomfort;Sore Pain Intervention(s): Ambulation/increased activity;Rest;Relaxation technique Therapist reported pain to: RN aware/addressing Functional Mobility Bed Mobility Supine to Sit: Moderate assistance;head of bed elevated;increased time to complete task;towards theleft;use of handrail;cues for log rolling (light trunk assistance) Sit to Supine: Stand-by assistance;head of bed elevated;increased time to complete task Functional Transfers Other Transfers/ Comments: SBA: sit<>stand, walker, fair + carryover for safe hand positioning using walker/min verbal cues Toilet Transfers: Stand by assistance;increased time to complete task;grab bar;with assistive device Toilet Transfers Assistive Device: Rolling walker Shower Transfers: Minimal assistance;Grab bars Functional Mobility: Stand-by assistance;increased time to complete task Functional Mobility Assistive Device: Rolling walker Functional Mobility Comment: EOB > restroom for ADLs (toilet > shower > chair) > EOB/Supine > BSC for toileting Balance Sitting - Static: Supervision Sitting - Dynamic: Stand by assistance Standing - Static: Stand-by assistance Standing-Static Assistive Device: Rolling walker Standing - Dynamic: Stand-by assistance Standing-Dynamic Assistive Device: Rolling walker Gait belt used: Yes ADL Bathing: Minimal assistance (pt required being seated for showering, assisted wash hair, instructedapplication EC strategies (pacing, positioning)) Bathing Deficit: Supervision/safety Upper Body Dressing: Minimal assistance (donning shirt, seated, instructed adaptive strategies, pt demo understanding) Lower Body Dressing: Minimal assistance (donning briefs and shorts, assist balance and pull up in back, walker for standing) Toileting: Stand-by assistance (toileting x 2 during session. Toilet to void, seated hygiene, managed gown, grab bar for balance. BSC - voiding.) Position after Treatment/Safety Handoff Position after therapy session: (pt seated on BSC at bedside with spouse assuming care) Details: Call light/ needs within reach;visitor present Goals Goals to be met in: 1 week Patient stated goal: to go home, to decrease pain during mobility and ADLs Patient will complete supine to sit in prep for ADLs: Contact Guard assistance (goal met and updated 04/22) Patient will complete functional chair transfer: Stand-by assistance Patient will complete toileting: Supervision (goal met and updated 04/29) Patient will complete lower body dressing: Stand-by assistance (goal met & updated 04/29) Pt Will participate in upper extremity HEP to prep for ADLs: . (goal added 04/26) Miscellaneous Goal #1: pt will perform household distance functional mobility w/ SBA in prep for toileting (goal met and updated 04/22) Snf Goal : pt will perform IADL task assessment prison goal to be met in: 2 weeks Collaborated with: Patient Plan Plan Treatment Interventions: Activity Tolerance training, ADL retraining, Continued evaluation, Patient/Family training, Functional transfer training, Compensatory technique education, Therapeutic Activity OT Frequency during hospitalization: minimum 3x/week The plan of care and recommendations assesses the patient's and/or caregiver's readiness, willingness, and ability to provide or support functional mobility and ADL tasks as needed upon discharge. Patient/Family Education Educated patient on ADL training, energy conservation techniques, and functional mobility training and fall prevention strategies including use of call light. patient and patient's family verbalized understanding. OT Time Start Time: 1600 Stop Time: 1658 Time Calculation (min): 58 min OT Charges $Therapeutic Activity: 8-22 mins $Self Care/ADL/Home Management Trainin-52 mins Problem List Problem List[1] Past 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 Past 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: Diagnosis [...] MD; Location: ENDOSCOPY; Service: Gastroenterology; Laterality: N/A; LIVER BIOPSY N/A 04/23/2025 Procedure: EMERGENCYEXPLORATORY LAP, REVISION OF JJ ANASTOMSIS, GASTRIC LAVAGE; Surgeon: Alejandra Wilson MD; Location: OR; Service: Transplant; Laterality: N/A; LIVER TRANSPLANTATION N/A 04/18/2025 Procedure: LIVING DONOR LIVER TRANSPLANT; Surgeon: Ludin Jose MD; Location: OR; Service: Transplant; Laterality: N/A; PUSH ENTEROSCOPY N/A 04/23/2025 Procedure: PUSH ENTEROSCOPY; Surgeon: Kelsey Moyer MD; Location: ENDOSCOPY; Service: Gastroenterology; Laterality: N/A; UPPER GASTROINTESTINAL ENDOSCOPY 09/21/2022 [1] Patient Active Problem List Diagnosis Alcoholic cirrhosis of liver with ascites (CMS-HCC) Encounter for pre-transplant evaluation for liver transplant High risk surgery, pre-operative cardiovascular examination High risk due to smoking Other ascites Jaundice Fatigue Immunosuppression (CMS-HCC) Other specified abnormal findings of blood chemistry Acute bacterial bronchitis Asthma Alcohol use Alcohol use disorder, severe, dependence (CMS-HCC) Bite Chemical dependency (CMS-HCC) Cholelithiasis without obstruction Contusion of rib Cough End-stage liver disease (CMS-HCC) Cyst of kidney, acquired Disease of gallbladder, unspecified Disease of stomach and duodenum, unspecified Elevated bilirubin Esophageal varices without bleeding (CMS-HCC) Essential (primary) hypertension Exposure to COVID-19 virus Finger sprain Hepatitis C virus infection Hypokalemia Hyponatremia Lesion of liver Low back pain Nausea New onset seizure (CMS-HCC) Opiate dependence, continuous (CMS-HCC) Other diseases of stomach and duodenum Other disorders of bilirubin metabolism Portal hypertension (CMS-HCC) Shingles Splenomegaly, not elsewhere classified Strep throat Strep throat exposure Varicose veins of other specified sites Viral syndrome * Farhan Marcano, PT - 04/29/2025 3:21 PM EST Physical Therapy Treatment Name: Mindy Coeyle : 1990 Attending Physician: Ludin Jose MD Admission Diagnosis: Liver transplant recipient (CMS-HCC) [Z94.4] S/P liver transplant (CMS-HCC) [Z94.4] End stage liver disease (CMS-HCC) [K72.10] Date: 04/29/2025 Room: [facility] Reviewed Pertinent hospital course: Yes Hospital Course PT/OT: 35 yo female presenting to OR 04/18 for living donor liver txp, extubated onunit post-op. Post-op ab US: WNL. 04/23: Transferred to SICU, for melena, hypotension, given 4 u pRBC; asthma exacerbation resulting in bronchospasm and airway loss requiring intubation. Small bowel enteroscopy with GI: no evidence of active bleeding but several blood clots seen in duodenum. Return to OR: emergency ex lap, revision of JJ anastomosis, gastric lavage. 04/24: extubated. 04/25: RUE duplex (+) SVT. 04/28: CT abdomen/pelvis showing liver transplant. 04/29: US abdomen/pelvis- normal appearance of liver transplant. 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 Pt demonstrates improvement in functional mobility ambulating with SBA and a rolling walker. Pt tolerated mobility well and is limited by decreased tolerance to activity and weakness. Pt would benefit from continued IP physical therapy to address strength, balance, endurance, and functional mobility. Recommendation Recommendation: Home PT Equipment Recommended: Rolling walker AM-PAC 6 Clicks Basic Mobility Inpatient Short Form: PT 6 Clicks Score: 17 Mobility Recommendations for Staff Patient ability: Patient ambulates in hallway Assist needed: with 1 person assist Equipment/ Precautions needed: Requires assistive device, use gait belt Requires Assistive Device: Rolling walker Cognition Overall Cognitive Status: Within Functional Limits Arousal/Alertness: Alert Orientation Level: Oriented X4 Behavior: Appropriate;Cooperative;Motivated Following Commands: Follows all commands and directions without difficulty Safety Judgment: Good awareness of safety precautions Insight: Demonstrated intact insight into limitation and abilities to complete ADL's safely Pain Pain Score: (not rated) Pain Location: Abdomen Pain Intervention(s): Repositioned;Ambulation/increased activity Therapist reported pain to: RN aware Mobility Bed Mobility Supine to Sit: Minimal assistance;increased time to complete task (cues for log roll) Transfers Sit to Stand: Minimal assistance;up to assistive device;cues for hand placement Sit to Stand Assistive Device: Rolling walker Stand to Sit: Minimal assistance;with assistive device;cues for hand placement Stand to Sit Assistive Device: Rolling walker Gait Distance: 75' x2 (seated rest break between bouts) Level of Assistance: Stand By assistance Assistive Device: Rolling walker Gait Characteristics: Steady;swing-through pattern;R decreased step length;L decreased step length;Increased trunk flexion Balance Sitting - Static: Supervision Sitting - Dynamic: Supervision Standing - Static: With Assistive Device;Stand-by assistance Standing-Static Assistive Device: Rolling walker Standing - Dynamic: Stand-by assistance;With Assistive Device Standing-Dynamic Assistive Device: Rolling walker Gait belt used: Yes Position after Treatment and Safety Handoff Position after treatment and safety handoff Position after therapy session: Recliner Details: RN notified;Call light/ needs within reach Alarms: Chair (pt declining chair alarm, RN notified and aware) Goals Goals Met: Bed mobility Collaborated with: Patient Patient Stated Goal: to decrease pain during mobility Goals to be met by: 05/03/25 Patient will transition from supine to sit: Supervision Patient will transition from sit to supine: Will tolerate assessment Patient will transfer from sit to stand: Independent Patient will ambulate: Modified Independent, distance (in feet), with assistive device Ambulation Assistance Device: Rolling walker Distance (in feet): 150' Patient will go up / down stairs: Will tolerate assessment Long-term goal to be met by: 05/26/25 Snf Goal : Pt will ambulate 250' independently without AD Patient/Family Education Educated patient on the role of physical therapy and importance of increased activity and fall prevention strategies, including use of call light; patient verbalized understanding. Handout(s) issued:none. Plan Plan Treatment/Interventions: Endurance training, Patient/family training, Equipment eval/education, Gait training, Therapeutic Activity, Therapeutic Exercise, Stair Training PT Frequency during hospitalization: minimum 3x/week The plan of care and recommendations assesses the patient's and/or caregiver's readiness, willingness, and ability to provide or support functional mobility and ADL tasks as needed upon discharge. Time Start Time: 1312 Stop Time: 1338 Time Calculation (min): 26 min Charges $Gait/Mobility: 8-22 mins $Therapeutic Activity: 1 unit Problem List Problem List[1] Past 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 Past 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: Diagnosis [...] MD; Location: ENDOSCOPY; Service: Gastroenterology; Laterality: N/A; LIVER BIOPSY N/A 04/23/2025 Procedure: EMERGENCYEXPLORATORY LAP, REVISION OF JJ ANASTOMSIS, GASTRIC LAVAGE; Surgeon: Alejandra Wilson MD; Location: OR; Service: Transplant; Laterality: N/A; LIVER TRANSPLANTATION N/A 04/18/2025 Procedure: LIVING DONOR LIVER TRANSPLANT; Surgeon: Ludin Jose MD; Location: OR; Service: Transplant; Laterality: N/A; PUSH ENTEROSCOPY N/A 04/23/2025 Procedure: PUSH ENTEROSCOPY; Surgeon: Kelsey Moyer MD; Location: ENDOSCOPY; Service: Gastroenterology; Laterality: N/A; UPPER GASTROINTESTINAL ENDOSCOPY 09/21/2022 [1] Patient Active Problem List Diagnosis Alcoholic cirrhosis of liver with ascites (CMS-HCC) Encounter for pre-transplant evaluation for liver transplant High risk surgery, pre-operative cardiovascular examination High risk due to smoking Other ascites Jaundice Fatigue Immunosuppression (CMS-HCC) Other specified abnormal findings of blood chemistry Acute bacterial bronchitis Asthma Alcohol use Alcohol use disorder, severe, dependence (CMS-HCC) Bite Chemical dependency (CMS-HCC) Cholelithiasis without obstruction Contusion of rib Cough End-stage liver disease (CMS-HCC) Cyst of kidney, acquired Disease of gallbladder, unspecified Disease of stomach and duodenum, unspecified Elevated bilirubin Esophageal varices without bleeding (CMS-HCC) Essential (primary) hypertension Exposure to COVID-19 virus Finger sprain Hepatitis C virus infection Hypokalemia Hyponatremia Lesion of liver Low back pain Nausea New onset seizure (CMS-HCC) Opiate dependence, continuous (CMS-HCC) Other diseases of stomach and duodenum Other disorders of bilirubin metabolism Portal hypertension (CMS-HCC) Shingles Splenomegaly, not elsewhere classified Strep throat Strep throat exposure Varicose veins of other specified sites Viral syndrome * Geoff Sarmiento, RD - 04/29/2025 10:19 AM EST TXP - Follow Up [facility] Medical Nutrition Therapy Follow-Up Diet Order/Nutrition Support: Diet/Nutrition Orders Diet Regular(7) Frequency: Effective Now Number of Occurrences: Until Specified Order Questions: Suicide/Behavior Risk Modification? No Dietary nutrition supplements Frequency: TID Number of Occurrences: Until Specified Order Questions: Select Supplement: Boost Plus-high calorie high protein supplement Pertinent Information: Pt seen for follow-up. present during visit. Assuming care d/t CHRIS s/o. TPN stopped overnight d/t rash. Diet advanced to regular. Says she's hungry. Taking in a good amount of fluids. Will monitor over the weekend. Continue nutrition POC as prescribed. Glucose: 95-137 x 24 hours. I/O: -4.3L net volume. Last BM Date: 04/27/25. Admit Weight: 156 lb (70.8 kg) Current Weight: 157 lb 4.8 oz (71.4 kg) Pertinent Labs: Recent Labs 04/27/25 0456 04/28/25 0637 04/29/25 0525 WBC 3.5* 6.2 5.3 HGB 7.6* 8.4* 7.9* HCT 21.7* 24.1* 23.3* PLT 62* 111* 92* Recent Labs 04/27/25 0301 04/28/25 0637 04/29/25 0525 NA 138 136 135 K 4.2 3.7 4.1 CL 112* 106 108 CO2 24 23 23 BUN 17 17 18 CREATININE 0.57* 0.68 0.75 GLUCOSE 224* 105* 95 CALCIUM 7.0* 7.5* 7.7* MG 1.7 1.9 1.7 PHOS 2.4 2.4 3.0 Recent Labs 04/27/25 0301 04/28/25 0637 04/29/25 0525 AST 74* 66* 62* ALT 104* 104* 94* BILITOT 4.0* 3.4* 3.1* BILIDIRECT 2.87* 2.28* 2.02* ALKPHOS 342* 397* 452* ALBUMIN 2.1* 2.2* 2.2* 2.4* 2.4* Scheduled Meds: acetaminophen 975 mg Oral Q8H albumin human 25% (12.5 g/ 50 mL) 100 mL Intravenous Once aspirin 81 mg Oral Daily with breakfast fluconazole 200 mg Oral Daily 0900 furosemide (LASIX) injection 40 mg Intravenous Once heparin 5,000 Units Subcutaneous 3 times per day insulin regular 0-12 Units Subcutaneous Q6H Scheduled lidocaine 2 patch Transdermal Daily 0900 melatonin 3 mg Oral Nightly (2100) methocarbamoL 1,000 mg Oral TID mycophenolate 500 mg Oral BID pantoprazole (PROTONIX) IV 40 mg Intravenous BID6 [Held by provider] polyethylene glycol 17 g Oral Daily 0900 predniSONE 20 mg Oral Daily 0900 pregabalin 75 mg Oral BID [Held by provider] scopolamine 1 patch Transdermal Q72H [Held by provider] senna-docusate 1 tablet Oral BID [Held by provider] simethicone 80 mg Oral PC/HS sulfamethoxazole-trimethoprim 1 tablet Oral Daily 0900 [Held by provider] tacrolimus 3 mg Oral BID7 traZODone 50 mg Oral Nightly (2100) valGANciclovir 450 mg Oral Daily 0900 Continuous Infusions: PRN Meds:albuterol, dextrose 10% in water OR dextrose 10% in water, HYDROmorphone, ipratropium-albuteroL, ondansetron, oxyCODONE OR oxyCODONE, phenoL Vital Signs: Temp: [97.6 ??F (36.4 ??C)-98.7 ??F (37.1 ??C)] 97.9 ??F (36.6 ??C) Heart Rate: [86-92] 87 Resp: [17-18] 18 BP: (92-122)/(50-75) 115/71 Skin Integrity: Abdominal incision Daniel Scale Score: 20 Edema: Generalized Edema: Non-pitting RUE Edema: Mild pitting, slight indentation LUE Edema: Mild pitting, slight indentation RLE Edema: Moderate pitting, indentation subsides rapidly LLE Edema: Moderate pitting, indentation subsides rapidly GI: Abdomen Inspection: Soft, Distended, Surgical Scar Bowel Sounds (All Quadrants): Active Palpation/Percussion: Tenderness Passing Flatus: Yes Ventilator Settings: Anthropometrics: Ht Readings from Last 1 Encounters: 04/29/25 5' 5 (1.651 m) Wt Readings from Last 1 Encounters: 04/29/25 157 lb 4.8 oz (71.4 kg) Body mass index is 26.18 kg/m??. Estimated Nutrition Needs: Based on DBW of 68.1 kg Kcals/day: 1379-1328 (25-30 kcals/kg) Protein g/day: 100-140 (1.5-2.0 g/kg) Carbohydrates g/day: 45-55% of total calories Fluid ml/day: 1 ml/kcal or per MD *Needs based on clinical status at this time and subject to change. Nutrition Diagnosis Problem: Increased kcal/protein needs Related To: Increased demand for nutrients As Evidenced By: Recent liver transplant, medically complex Nutrition Diagnosis Problem: Food- and nutrition-related knowledge deficit Related to: Exposure to new information As evidenced by: Recent liver transplant and subsequent need for medical nutrition therapy education Established Nutrition Intervention: Monitor PO Intake/Tolerance and Education/Counseling: Food Safety Established Goals: Total energy intake improved as evidenced by PO intake at least 75% of meals/supplements/snacks within 1-3 days and Voices/demonstrates knowledge of Food Safety education/counseling Goals: Partially Met - po intake not well established Coordination of Nutrition Care: Currently there are no further barriers to discharge from a nutrition perspective and will further assess patient on an as needed basis as identified by the transplantmultidisciplinary team This information has been communicated to the transplant multidisciplinary team Follow up: per policy while inpatient. If patient is discharged, dietitian will be available for consultation on an as needed basis as identified by the multidisciplinary team. Additional Recommendation(s) to Physicians: No New Recommendations Jc Sarmiento RD, JERARDO Clinical Dietitian - Solid Organ Transplant Contact via [employer] Chat * Yolanda Vang RD - 04/29/2025 8:03 AM EST TPN stopped overnight. Pt reported redness on upper R arm that went to neck/jaw. Pt felt it was related to TPN and TPN was stopped. CT AP this AM continues to show mild bowel dilation consistent with ileus. Team advanced diet to regular with ONS. With no plans for further TPN, will sign off back to transplant RD. Please reach out (preferably [employer] Secure Chat) if there are any questions or concerns. Yolanda Vang RD, LD Metabolic Support Services * Gilmer Rivera CNP - 04/29/2025 7:46 AM EST Transplant Surgery Progress Note Name: Mindy Wade CSN: [id number] Date: 04/29/2025 7:41 AM OR Date: 04/18/2025 Subjective Awake and alert. No distress. Reports that she had some right upper arm redness that went up into her neck/ jaw. [place] as though this was related to [employer]. The TPN was stopped and redness went away. CT resulted/ reviewed. Plan for diet advancement today. She is happy about this and reported no current N/V/D having tolerated supplement shakes yesterday. Otherwise, continued high drain output needing albumin replacement. Denies CP or SOB. Up ad heidy in room w/ hope for PT/OT today. Objective Vitals: Temp: [97.6 ??F (36.4 ??C)-98.7 ??F (37.1 ??C)] 98.7 ??F (37.1 ??C) Heart Rate: [84-95] 89 Resp: [17-18] 18 BP: (92-122)/(50-75) 100/58 I/O: Intake/Output Summary (Last 24 hours) at 04/29/2025 0741 Last data filed at 04/29/2025 0508 Gross per 24 hour Intake 860 ml Output 3875 ml Net -3015 ml Physical Exam: Constitutional: awake, alert, no acute distress HEENT: normocephalic, PERRL, outer ears appearing normal, no nasal drainage, moist oral mucous membranes Respiratory: normal effort Cardiovascular: RRR, normotensive Abdomen: Soft, appropriately tender. Wound vac, drains x2 serous/ SS Extremities: No gross deformities, acyanotic, skin cool and dry. (+) +1 pitting edema to BLE Neuro: Alert. Psych: Affect appropriate for situation. Labs: Recent Labs 04/27/25 0456 04/28/25 0637 04/29/25 0525 WBC 3.5* 6.2 5.3 HGB 7.6* 8.4* 7.9* HCT 21.7* 24.1* 23.3* PLT 62* 111* 92* Recent Labs 04/27/25 0301 04/28/25 0637 04/29/25 0525 NA 138 136 135 K 4.2 3.7 4.1 CL 112* 106 108 CO2 24 23 23 BUN 17 17 18 CREATININE 0.57* 0.68 0.75 GLUCOSE 224* 105* 95 CALCIUM 7.0* 7.5* 7.7* MG 1.7 1.9 1.7 PHOS 2.4 2.4 3.0 Recent Labs 04/27/25 2304 04/28/25 0643 04/28/25 1058 04/28/25 1719 04/28/25 2310 04/29/25 0506 POCGMD 101* 111* 132* 137* 131* 97 Recent Labs 04/27/25 0301 04/28/25 0637 04/29/25 0525 AST 74* 66* 62* ALT 104* 104* 94* BILITOT 4.0* 3.4* 3.1* BILIDIRECT 2.87* 2.28* 2.02* ALKPHOS 342* 397* 452* ALBUMIN 2.1* 2.2* 2.2* 2.4* 2.4* No results for input(s): INR , PROTIME in the last 72 hours. Imaging: CT Abdomen and Pelvis With IV contrast Result Date: 04/29/2025 EXAM: CT ABDOMEN AND PELVIS WITH IV CONTRAST INDICATION: Other diseases of liver, Liver Transplant Recipient with Edema and Pain TECHNIQUE: CT of the abdomen was performed after the administration ofintravenous contrast in the late arterial, portal venous, and delayed phases. CT of the pelvis was also performed in the portal venous phase. Axial images were obtained with coronal and sagittal reconstructions. CONTRAST: 125 mL of IOHEXOL 350 MG IODINE/ML INTRAVENOUS SOLUTION administered intravenously FIELD OF VIEW: 36 cm DATE: 04/29/2025 5:54 AM EST COMPARISON: Ultrasound dated 04/25/2025 and prior FINDINGS: Lower chest: Small right pleural effusion and trace left pleural effusion. Complete right lower lobe collapse. Segmental left lower lobe atelectasis. No pneumothorax. Normal heart size. Central venous catheter tip in the right atrium. Liver: Post right lobe liver transplantation. The liver allograft is normal in density without focal lesions. Hepatic vasculature: The main and right hepatic arteries are patent. The main and right portal vein branches are patent. A patent right hepatic vein is visualized. 2 hepatic vein tributaries appear to join just proximal to the vena cava. No evidence for hepatic vein thrombosis. Biliary tree:No biliary ductal dilation. Cholecystectomy and he paticojejunostomy. Spleen: Unchanged mild splenomegaly. Pancreas: Normal Adrenal glands: Normal Kidneys/Ureters/Bladder: Normal size without hydronephrosis. No stones. No mass lesions. Normal appearance of the urinary bladder. Gastrointestinal tract: The stomach is normal in caliber. Mild diffuse di latation of the small bowel with fluid and gas, without a transition point. Mild colonic dilatationwith liquid stool and gas. Mild right colonic edema. Absent appendix. Lymphatics: No lymphadenopathy. Vasculature: * Hepatic vasculature detailed above. * Normal caliber aorta without atherosclerosis. 3 right renal arteries. * Small residual gastroesophageal varices. Peritoneum/Retroperitoneum: No substantial ascites. No focal fluid collections. No free air. 2 surgical drains enter the right abdomen and terminate in the right subphrenic space, without substantial surrounding fluid. Genital Organs: Normal Abdominal wall/Soft tissues: Closed incision. Surgical drains. Mild subcutaneous edema. Os seous structures: No acute osseous abnormalities or suspicious osseous lesions. IMPRESSION: 1. Post right liver transplantation. 2. The hepatic vasculature appears patent. 3. Mildbowel dilatation, ileus pattern. Report Verified by: Mark Pittman MD at 04/29/2025 7:21 AM EST Assessment/Plan Mindy Wade is a 35 y.o. 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 who is s/p living liver transplant with re-op for J-J anastomosis PLAN: - stop TPN and advance diet to regular - monitor I&Os -Albumin replacement for drain output - mag replacement for hypomagnesemia - PT/OT - speak with radiology to obtain liver volume from CT this morning - OOB as tolerated - continue IS/monitoring - DC planning CV: HDS - Coreg held - CMU monitoring PULM: ROLA - encourage IS/OOB FEN/GI: ETOH/HCV s/p LDLT 04/18 - Diet: regular - Replete Electrolyte PRN - Bowel regimen held - bASA - POD1 Liver US normal, US 04/21 stable - s/p re-op for GI bleeding/Acute blood loss anemia requiring 5u pRBC, 2FFP, 2 cryo, 1 platelet. JJredone. - follow-up US 04/25 wnl - PRN albumin for drain replacement /RENAL: - Strict I/Os - UOP unmeasured - Cr NL - lasix for acites Estimated Creatinine Clearance: 103.8 mL/min (based on SCr of 0.75 mg/dL). HEME: - Hgb 8.4g - Transfuse to keep hgb >7g ID: - AF - PPX: Valganciclovir, SS Bactrim, and Fluconazole IMMUNOSUPPRESSION: - FK Goal: standard - Steroids per taper - [employer] ENDO: - HDSSI NEURO: A+O - Multimodal pain reg PPX: SQH, PPI ACCESS: DL PICC Final plan per attending physician DISPO: 8ccp, planning for IPR at d/c Gilmer Rivera CNP Transplant Surgery This note was copied forward from the note written by Kassandra Brooks CNP on 04/28/2025. I havereviewed and updated the history, physical exam, data, assessment and plan of the note so that it reflects the evaluation and management of the patient on 04/29/2025. Cosigned by Ludin Jose MD at 05/08/2025 9:04 AM EST Associated attestation - Ludin Jose MD - 05/08/2025 9:04 AM EST Transplant Surgery Attending Attestation I have seen and examined the patient and agree with the plan. All points of care were reviewed in amultidisciplinary fashion with the housestaff and teams involved. Immunosuppression was reviewed and adjusted accordingly. This note represents care provided with the multidisciplinary team on 04/29/25. Ludin Jose MD [employer] Coverage Merchandiser of Transplant Surgery [phone] (m) * Jackie Hernandez OT - 04/28/2025 11:42 AM EST Occupational Therapy Reason Patient Not Seen Name: Mindy Wade : 1990 Attending Physician: Ludin Jose MD Admission Diagnosis: Liver transplant recipient (CMS-HCC) [Z94.4] S/P liver transplant (CMS-HCC) [Z94.4] End stage liver disease (CMS-HCC) [K72.10] Date: 04/28/2025 Precautions: Precautions: n/a Reviewed Pertinent hospital course: Yes Unable to see patient due to: Pt declining OT session d/t drain leakage. RN made aware. Will followup per POC. Time Attempted: 816 Cosigned by Kalie Muse OT at 04/28/2025 11:50 AM EST Associated attestation - Kalie Muse OT - 04/28/2025 11:50 AM EST I have reviewed, acknowledged, collaborated and agree with the following information written by [facility] [place] occupational therapist aide. * Farhan Marcano, PT - 04/28/2025 11:21 AM EST Physical Therapy Reason Patient Not Seen Name: Mindy Wade : 1990 Attending Physician: Ludin Jose MD Admission Diagnosis: Liver transplant recipient (CMS-HCC) [Z94.4] S/P liver transplant (CMS-HCC) [Z94.4] End stage liver disease (CMS-HCC) [K72.10] Date: 04/28/2025 Precautions: Precautions: n/a Reviewed Pertinent hospital course: Yes Unable to see patient due to: Pt politely declining physical therapy this date reporting hypotension and awaiting medication. Pt reports she is motivated to continue to improve with functional mobility and has been getting up with other staff. Will follow up for therapy session when patient is medically appropriate and as schedule allows Time Attempted: 9 * Ana Brooks CNP - 04/28/2025 9:45 AM EST Transplant Surgery Progress Note Name: Mindy Wade CSN: [id number] Date: 04/28/2025 9:45 AM OR Date: 04/18/2025 Subjective AF, HDS C/o Abd pain this AM but no belching/bloating Having Bms and passing gas OOBTC this AM Objective Vitals: Temp: [98 ??F (36.7 ??C)-98.3 ??F (36.8 ??C)] 98.1 ??F (36.7 ??C) Heart Rate: [76-95] 95 Resp: [14-19] 17 BP: (96-136)/(58-87) 96/65 I/O: Intake/Output Summary (Last 24 hours) at 04/28/2025 0945 Last data filed at 04/28/2025 0755 Gross per 24 hour Intake 1013.44 ml Output 1510 ml Net -496.56 ml Physical Exam: Constitutional: awake, alert, no acute distress HEENT: NG in place Respiratory: normal effort Cardiovascular: RRR Abdomen: Soft, appropriately tender. Wound vac, drains x2 serous Extremities: No gross deformities, acyanotic, skin cool and dry. Neuro: Alert. Psych: Affect appropriate for situation. Labs: Recent Labs 04/26/25 2355 04/27/25 0456 04/28/25 0637 WBC 3.4* 3.5* 6.2 HGB 7.3* 7.6* 8.4* HCT 22.5* 21.7* 24.1* PLT 61* 62* 111* Recent Labs 04/26/25 1616 04/27/25 0301 04/28/25 0637 NA 143 138 136 K 4.0 4.2 3.7 CL 113* 112* 106 CO2 23 24 23 BUN 21 17 17 CREATININE 0.60 0.57* 0.68 GLUCOSE 97 224* 105* CALCIUM 7.3* 7.0* 7.5* MG 1.8 1.7 1.9 PHOS 3.0 3.0 2.4 2.4 Recent Labs 04/27/25 0501 04/27/25 0503 04/27/25 1131 04/27/25 1755 04/27/25 2304 04/28/25 0643 POCGMD 316* 83 134* 113* 101* 111* Recent Labs 04/26/25 0609 04/26/25 1616 04/27/25 0301 04/28/25 0637 AST 78* -- 74* 66* ALT 117* -- 104* 104* BILITOT 4.6* -- 4.0* 3.4* BILIDIRECT 3.20* -- 2.87* 2.28* ALKPHOS 299* -- 342* 397* ALBUMIN 2.3* 2.3* < > 2.1* 2.2* 2.2* < > = values in this interval not displayed. No results for input(s): INR , PROTIME in the last 72 hours. Imaging: No results found. Assessment/Plan Mindy Wade is a 35 y.o. 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 who is s/p living liver transplant with re-op for J-J anastomosis PLAN: - ROBF s/p ileus - Adv to CLD, do not progress further today - Cont TPN - High drain output, soapy?, change bulbs to bili bags - B/p 90s/50s but hgb stable/up. Consider hemo-concentrated. Albumin bolus for drain losses CV: HDS - Coreg held - CMU monitoring PULM: ROLA - encourage IS/OOB FEN/GI: ETOH/HCV s/p LDLT 04/18 - Diet: CLD, TPN - Replete Electrolyte PRN - Bowel regimen held - bASA - POD1 Liver US normal, US 04/21 stable - s/p re-op for GI bleeding/Acute blood loss anemia requiring 5u pRBC, 2FFP, 2 cryo, 1 platelet. JJredone. - follow-up US 04/25 wnl /RENAL: - Strict I/Os - UOP unmeasured - Cr NL Estimated Creatinine Clearance: 117.4 mL/min (based on SCr of 0.68 mg/dL). HEME: - Hgb 8.4g - Transfuse to keep hgb >7g ID: - AF - PPX: Valganciclovir, SS Bactrim, and Fluconazole IMMUNOSUPPRESSION: - FK Goal: standard - Steroids per taper - Cellcept ENDO: - HDSSI NEURO: A+O - Multimodal pain reg with IV dilaudid PPX: SQH, SCD, PPI ACCESS: DL PICC for TPN Final plan per attending physician DISPO: 8ccp, planning for IPR at d/c ANA BROOKS CNP Transplant Surgery Cosigned by Ludin Jose MD at 05/08/2025 9:04 AM EST Associated attestation - Ludin Jose MD - 05/08/2025 9:04 AM EST Transplant Surgery Attending Attestation I have seen and examined the patient and agree with the plan. All points of care were reviewed in amultidisciplinary fashion with the housestaff and teams involved. Immunosuppression was reviewed and adjusted accordingly. This note represents care provided with the multidisciplinary team on 04/28/25. Ludin Jose MD Retail Coverage Merchandiser of Transplant Surgery [phone] (m) * Yolanda Vang RD - 04/28/2025 8:27 AM EST Pt transferred to the floor last night. Diet advanced yesterday afternoon to sips clears. NGT removed yesterday. Four BM recorded yesterday. Continues on TPN. Increase TPN today to Clinimix E 4.25/10 @ 62 mL/hr. Continue to hold SMOFlipid in setting of elevated triglycerides. Reduced thiamine to 100 mg and MVI to 10 mL in TPN today. Continue MTE at 1 mL. T bili trending down. No lytes supplementation ordered yet for today. Recommend to provide K and Phos outside TPN today. Glucose continues to be within goal range. Ordered high scale correction Q6H, but no insulin neededin several days. Please reach out (preferably Epic Secure Chat) if there are any questions or concerns. Continue to follow with you. Yolanda Vang RD, LD Metabolic Support Services * Yolanda Vang RD - 04/27/2025 12:33 PM EST Pt has been followed by transplant RD Jc Sarmiento. Consult received today for start of TPN with prolonged NPO status and ileus per imaging yesterday and today. Two family members present at visit. Pt currently NPO, but may have hard candies. Had a cup of ice chips at bedside. NGT in place with plan for clamp trial. 2450 mL NGT output yesterday. Six BMs recorded yesterday. One BM recorded today. Scheduled PO bowel regimen held. Plan to start TPN today with Clinimix E 4.25/10 @ 42 mL/hr. Held lipids today as TG still pending. Goal TPN is Clinimix E 11/04 @ 83 mL/hr with SMOFlipid 50 g/day as separate infusion. Provide 200 mg thiamine, 20 mL MVI and 1 mL MTE in TPN today. Noted T bili 4.0 today, so only providing half dose MTE. IV Lasix yesterday and again today. IV lytes replacement ordered in past 24H - Mg, Phos. IVF stopped this AM. Glucose mostly within goal range once central and 2 FSBS readings above goal (suspect error on FSBSas repeat check down to 83). Ordered high scale correction Q6H, but has not needed much insulin. Continue to monitor with start of TPN. Please reach out (preferably Epic Secure Chat) if there are any questions or concerns. Continue to follow with you. Yolanda Vang RD, LD Metabolic Support Services * Gloria Chen MD - 04/27/2025 10:30 AM EST Transplant Surgery Progress Note Name: Mindy Wade CSN: [id number] Date: 04/27/2025 10:30 AM OR Date: 04/18/2025 Subjective 2.4L NG Ongoing melena Persistent abdominal distention Objective Vitals: Temp: [98 ??F (36.7 ??C)-98.4 ??F (36.9 ??C)] 98.4 ??F (36.9 ??C) Heart Rate: [70-90] 87 Resp: [9-21] 14 BP: (93-141)/(68-106) 112/76 I/O: Intake/Output Summary (Last 24 hours) at 04/27/2025 1030 Last data filed at 04/27/2025 0820 Gross per 24 hour Intake 2656.48 ml Output 3920 ml Net -1263.52 ml Physical Exam: Constitutional: awake, alert, no acute distress HEENT: NG in place Respiratory: normal effort Cardiovascular: RRR Abdomen: Soft, appropriately tender. Wound vac, drains x2 ss Extremities: No gross deformities, acyanotic, skin cool and dry. Neuro: Alert. Psych: Affect appropriate for situation. Labs: Recent Labs 04/26/25 1616 04/26/25 2355 04/27/25 0456 WBC 4.1 3.4* 3.5* HGB 8.5* 7.3* 7.6* HCT 24.6* 22.5* 21.7* PLT 76* 61* 62* Recent Labs 04/26/25 0609 04/26/25 1616 04/27/25 0301 NA 142 143 138 K 4.0 4.0 4.2 CL 114* 113* 112* CO2 22 23 24 BUN 23 21 17 CREATININE 0.51* 0.60 0.57* GLUCOSE 75 97 224* CALCIUM 7.3* 7.3* 7.0* MG 2.1 1.8 1.7 PHOS 1.8* 3.0 3.0 2.4 Recent Labs 04/26/25 1250 04/26/25 1800 04/26/25 2250 04/27/25 0500 04/27/25 0501 04/27/25 0503 POCGMD 113* 82 82 307* 316* 83 Recent Labs 04/25/25 0518 04/25/25 1134 04/26/25 0609 04/26/25 1616 04/27/25 0301 AST 100* -- 78* -- 74* ALT 128* -- 117* -- 104* BILITOT 4.6* -- 4.6* -- 4.0* BILIDIRECT 3.53* -- 3.20* -- 2.87* ALKPHOS 182* -- 299* -- 342* ALBUMIN 2.3* 2.3* < > 2.3* 2.3* 2.3* 2.1* < > = values in this interval not displayed. Recent Labs 04/25/25 05 INR 1.1 PROTIME 14.3 Imaging: X-ray Portable Abdomen AP view Result Date: 04/27/2025 EXAM: XR PORTABLE ABDOMEN AP INDICATION: post op ileus TECHNIQUE: Supine AP view of the abdomen COMPARISON: 04/26/2025 FINDINGS: Enteric tube tip terminates over the gastric antrum Post surgical changes of recent liver transplant in the right upper quadrant There is diffuse gaseous distention of small and large bowel loops in a pattern suggesting ileus. Small stool burden. Supine positioning limits evaluation for free air; however, no large volume pneumoperitoneum is seen. No acute osseous abnormalities are identified. IMPRESSION: Diffuse gaseous distention of small and large bowel loops in a pattern suggesting ileus. Report Verified by: Seble Crawford MD at 04/27/2025 7:58 AM EST VAS Venous Duplex Upper Right Result Date: 04/26/2025 Right: The right basilic and ulnar veins were not visualized due to edema. The right brachial vein was not fully visualized due to line and bandaging. Evidence for acute occluding SVT, measuring 16 cm, is seen in the right cephalic vein, in the forearm. There is no other evidence for DVT/SVT in theremaining limited right upper extremity. No evidence for DVT in the contralateral mid subclavian vein. Conclusions: Acute, occluding SVT right cephalic vein.No other evidence of DVT or SVT in the remaining limited right upper extremity. Procedure: Upper extremity venous imaging was performed using real time B-mode imaging in the longitudinal and the transverse plane with and without compression. V isualization routinely includes the internal jugular vein, subclavian vein, axillary vein, brachialvein, cephalic vein, basilic vein, and selectively the radial and ulnar vein. Color and spectral Doppler were used to document flow characteristics from the IJV, subclavian vein, and axillary vein toevaluate for the presence or absence of spontaneous flow. Augmentation maneuvers were performed as needed to document venous flow response. On unilateral studies, the contralateral subclavian and/or internal jugular veins are routinely examined. Critical Findings: Critical results were called to Ludin Rodas RN on 04/26/25 at 11:45. The results were read back and verified. Assessment/Plan Mindy Wade is a 35 y.o. 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 ETOH/HCV s/p OLT 04/18 - bASA - POD1 Liver US normal, US 04/21 stable, 04/25 wnl - d/c incisional vac today - lasix today GI bleeding Acute blood loss anemia 04/23 GI bleed, requiring 5u pRBC, 2FFP, 2 cryo, 1 platelet Taken back to the OR on 04/23, JJ redone - NGT clamp trial - TPN - Fluconazole ppx for 1 month - zosyn x4d Acute Hypoxic Respiratory Failure - Extubated, on RA Immunosuppression: - Cellcept 500 mg BID - Prednisone Taper - Tacrolimus: 0.5 BID - Bactrim and valcyte Endocrine: - Home medications: none - HDSSI PPX: CARIE, SCD, PPI Dispo: SICU GLORIA CHEN MD Transplant Surgery Cosigned by Ludin Jose MD at 04/28/2025 7:48 AM EST Associated attestation - Ludin Jose MD - 04/28/2025 7:48 AM EST Transplant Surgery Attending Attestation I have seen and examined the patient and agree with the plan. All points of care were reviewed in amultidisciplinary fashion with the housestaff and teams involved. Immunosuppression was reviewed and adjusted accordingly. This note represents care provided with the multidisciplinary team on 04/27/25. Looks a lot better today. Jarreau trial NGT. Labs stable. Continue to walk and normalize. Dc incisional vac. Ludin Jose MD Retail Coverage Merchandiser of Transplant Surgery [phone] (m) * Kalie Micha, OT - 04/26/2025 11:58 AM EST Occupational Therapy Treatment Name: Mindy Wade : 1990 Attending Physician: Alejandra Wilson MD Admission Diagnosis: Liver transplant recipient (CMS-HCC) [Z94.4] S/P liver transplant (CMS-HCC) [Z94.4] End stage liver disease (CMS-HCC) [K72.10] Date: 04/26/2025 Room: [facility]/[place] [address] Reviewed Pertinent hospital course: Yes Hospital Course PT/OT: 35 yo female presenting to OR 04/18 for living donor liver txp, extubated onunit post-op. Post-op ab US: WNL. 04/23: Transferred to SICU, for melena, hypotension, given 4 u pRBC; asthma exacerbation resulting in bronchospasm and airway loss requiring intubation. Small bowel enteroscopy with GI: no evidence of active bleeding but several blood clots seen in duodenum. Return to OR: emergency ex lap, revision of JJ anastomosis, gastric lavage. 04/24: extubated. 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 Defer to PT note for further details. Recommendation Recommendation: IP Rehab (recommend at least 5x/week at discharge,patient can tolerate at least 3 hours/day) Equipment Recommendations: Tub Transfer Bench Tub Transfer Bench Justification: Patient is at risk to fall in shower environment, Patient has decreased activity tolerance requiring use of seat during bathing tasks Assessment Assessment: Decreased IADLs, Decreased Functional Mobility, Decreased Balance, Decreased ADL status, Decreased activity tolerance, Decreased self-care transfers, Decreased UE strength Prognosis for OT goals: Good Pt supine in bed upon therapist's arrival. Mindy was agreeable to occupational therapy session and tolerated well with high motivation. Pt completed x2 stands with min A and several steps with CGA and RW. Increased time required d/t significant fatigue and pain. Pt completed lower body dressing task but unable to tolerate modified figure four position d/t pain, thus requiring max A to complete.Pt remains limited by decreased activity tolerance, impaired balance, pain, significant deconditioning, and impaired ADL participation. Patient will benefit from continued acute inpatient occupational therapy in order to promote return to prior level of function and maximize functional independenceand safety. Continued occupational therapy in the inpatient rehabilitation setting at discharge is recommended. Patient will benefit from the intensity of an acute rehab stay with multiple skilled therapy disciplines. The patient is able to tolerate extensive daily therapy (at least 3 hours per day) and will benefit significantly from this level of intensity. At this time, the patient is below her functionalbaseline, requiring increased need for assistance and increased burden of care. Outcome Measures AM-PAC 6 Clicks Daily Activity Inpatient Short Form: OT 6 Clicks Score: 16 Functional Status Score ICU (FSS-ICU) Functional Status Score - ICU: 16 Cognition Overall Cognitive Status: Within Functional Limits Cognitive Assessment: Arousal/ Alertness;Orientation Level;Behavior;Safety Judgment;Following Commands;Insight Arousal/Alertness: Alert Orientation Level: Oriented X4 Behavior: Appropriate;Cooperative;Motivated Following Commands: Follows all commands and directions without difficulty Safety Judgment: Good awareness of safety precautions Insight: Demonstrated intact insight into limitation and abilities to complete ADL's safely Gomez Agitation Sedation Scale: Alert and calm Pain Pain Score: 8 Pain Location: Abdomen Pain Descriptors: Aching Supplemental Oxygen Supplemental Oxygen Supplemental Oxygen: None (Room air) Vitals Vitals Therapy Vitals : VSS throughout Functional Mobility Functional Transfers Sit to Stand: Minimal assistance;increased time to complete task;up to assistive device (x2 reps from recliner) Sit to Stand Assistive Device: Rolling walker Stand to Sit: Minimal assistance;with assistive device;increased time to complete task Stand to Sit Assistive Device: Rolling walker Functional Mobility: Contact guard assistance;with assistive device;increased time to complete task(to take x1 step forward and and backward; to take x3 steps forward) Functional Mobility Assistive Device: Rolling walker Balance Sitting - Static: Stand-by assistance Sitting - Dynamic: Contact Guard Assistance Standing - Static: Contact Guard Assistance;With Assistive Device Standing-Static Assistive Device: Rolling walker Standing - Dynamic: Contact Guard Assistance;With Assistive Device Standing-Dynamic Assistive Device: Rolling walker Gait belt used: Yes ADL Upper Body Dressing: Moderate assistance (to don/doff [facility] gown) Upper Body Dressing Deficit: Set-up;Supervision/safety;Pull around back Location Assessed UE Dressing: Seated in chair Lower Body Dressing: Maximum assistance Lower Body Dressing Deficit: Don/doff L sock;Don/doff R sock Location Assessed LE Dressing: Seated in chair Lower Body Dressing Deficit Additional Comments: pt unable to tolerate figure four position d/t severe abdominal pain Position after Treatment/Safety Handoff Position after therapy session: Recliner Details: RN notified;Call light/ needs within reach;visitor present Alarms: Chair Alarms Status: Activated and Interfaced with call system Goals Goals to be met in: 1 week Patient stated goal: to go home, to decrease pain during mobility and ADLs Patient will complete supine to sit in prep for ADLs: Contact Guard assistance (goal met and updated 04/22) Patient will complete functional chair transfer: Stand-by assistance Patient will complete toileting: Stand-by assistance (goal met and updated 04/22) Patient will complete lower body dressing: Moderate assistance Pt Will participate in upper extremity HEP to prep for ADLs: . (goal added 04/26) Miscellaneous Goal #1: pt will perform household distance functional mobility w/ SBA in prep for toileting (goal met and updated 04/22) Hemodialysis Patient Care Specialist Goal : pt will perform IADL task assessment prison goal to be met in: 2 weeks Collaborated with: Patient Plan Plan Treatment Interventions: Activity Tolerance training, ADL retraining, Continued evaluation, Patient/Family training, Functional transfer training, Compensatory technique education, Therapeutic Activity OT Frequency during hospitalization: minimum 3x/week The plan of care and recommendations assesses the patient's and/or caregiver's readiness, willingness, and ability to provide or support functional mobility and ADL tasks as needed upon discharge. Patient/Family Education Educated patient on the role of occupational therapy, OT goals, OT plan of care, functional mobility training, and the importance of safety and fall prevention strategies including need for supervision/ assistance with OOB activity and use of call light. patient verbalized understanding. OT Time Start Time: 957 Stop Time: 1020 Time Calculation (min): 23 min OT Charges $Therapeutic Activity: 8-22 mins $Self Care/ADL/Home Management Trainin-22 mins Problem List Problem List[1] Past 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 Past 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: Diagnosis Date Abdominal hernia 02/21/2023 Alcoholic hepatitis (CMS-HCC) Anxiety Ascites Chronic diarrhea 08/21/2022 Cirrhosis (CMS-HCC) Cystitis Depression Hepatitis C Past Surgical History [1] Patient Active Problem List Diagnosis Alcoholic cirrhosis of liver with ascites (CMS-HCC) Encounter for pre-transplant evaluation for liver transplant High risk surgery, pre-operative cardiovascular examination High risk due to smoking Other ascites Jaundice Fatigue Immunosuppression (CMS-HCC) Other specified abnormal findings of blood chemistry Acute bacterial bronchitis Asthma Alcohol use Alcohol use disorder, severe, dependence (CMS-HCC) Bite Chemical dependency (CMS-HCC) Cholelithiasis without obstruction Contusion of rib Cough End-stage liver disease (CMS-HCC) Cyst of kidney, acquired Disease of gallbladder, unspecified Disease of stomach and duodenum, unspecified Elevated bilirubin Esophageal varices without bleeding (CMS-HCC) Essential (primary) hypertension Exposure to COVID-19 virus Finger sprain Hepatitis C virus infection Hypokalemia Hyponatremia Lesion of liver Low back pain Nausea New onset seizure (CMS-HCC) Opiate dependence, continuous (CMS-HCC) Other diseases of stomach and duodenum Other disorders of bilirubin metabolism Portal hypertension (CMS-HCC) Shingles Splenomegaly, not elsewhere classified Strep throat Strep throat exposure Varicose veins of other specified sites Viral syndrome * Hedy Berg, PT - 04/26/2025 11:48 AM EST Physical Therapy Treatment Name: Mindy Wade : 1990 Attending Physician: Alejandra Wilson MD Admission Diagnosis: Liver transplant recipient (CMS-HCC) [Z94.4] S/P liver transplant (CMS-HCC) [Z94.4] End stage liver disease (CMS-HCC) [K72.10] Date: 04/26/2025 Room: [place] [address]/[place] [address] Reviewed Pertinent hospital course: Yes Hospital Course PT/OT: 35 yo female presenting to OR 04/18 for living donor liver txp, extubated onunit post-op. Post-op ab US: WNL. 04/23: Transferred to SICU, for melena, hypotension, given 4 u pRBC; asthma exacerbation resulting in bronchospasm and airway loss requiring intubation. Small bowel enteroscopy with GI: no evidence of active bleeding but several blood clots seen in duodenum. Return to OR: emergency ex lap, revision of JJ anastomosis, gastric lavage. 04/24: extubated. 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 Defer toOT note for further details. Assessment Mindy was sitting up in a bedside chair upon therapy arrival She was agreeable to increased mobility this morning. She needed min A for sit to stand and to ambulate 3' using a rolling walker. Cont POC Assessment: Impaired Bed Mobility;Impaired Transfers;Impaired Gait;Impaired Balance;Impaired Activity Tolerance Co-treatment performed: secondary to anticipated level of skilled assistance required to safely treat and mobilize patient Prognosis: Good Recommendation Recommendation: IP Rehab (recommend at least 5x/week at discharge,patient can tolerate at least 3 hours/day) (pending further mobility assessment) Equipment Recommended: Defer to facility to obtain AM-PAC 6 Clicks Basic Mobility Inpatient Short Form: PT 6 Clicks Score: 18 Mobility Recommendations for Staff Patient ability: Patient transfers to chair/ bedside commode Assist needed: with 1 person assist Equipment/ Precautions needed: Requires assistive device, use gait belt Requires Assistive Device: Rolling walker Cognition Overall Cognitive Status: Within Functional Limits Cognitive Assessment: Arousal/ Alertness;Orientation Level;Behavior;Safety Judgment;Following Commands;Insight Arousal/Alertness: Alert Orientation Level: Oriented X4 Behavior: Appropriate;Cooperative;Motivated Following Commands: Follows all commands and directions without difficulty Safety Judgment: Good awareness of safety precautions Insight: Demonstrated intact insight into limitation and abilities to complete ADL's safely Pain Pain Score: 8 Pain Location: Abdomen Pain Descriptors: Aching Mobility Transfers Sit to Stand: Minimal assistance;increased time to complete task;cues for hand placement Stand to Sit: Minimal assistance;cues for hand placement Gait Distance: 3' Level of Assistance: Minimal assistance Assistive Device: Rolling walker Gait Characteristics: R decreased step length;L decreased step length;decreased sushma Balance Sitting - Static: Stand-by assistance Sitting - Dynamic: Stand by assistance Standing - Static: Minimal Assistance;With Assistive Device Standing-Static Assistive Device: Rolling walker Standing - Dynamic: Minimal Assistance;With Assistive Device Standing-Dynamic Assistive Device: Rolling walker Gait belt used: Yes Position after Treatment and Safety Handoff Position after treatment and safety handoff Position after therapy session: Recliner Details: RN notified;visitor present;Call light/ needs within reach Alarms: Chair Alarms Status: Activated and Interfaced with call system Goals Goals Met: None Collaborated with: Patient Patient Stated Goal: to decrease pain during mobility Goals to be met by: 05/03/25 Patient will transition from supine to sit: Will tolerate assessment Patient will transition from sit to supine: Will tolerate assessment Patient will transfer from sit to stand: Independent Patient will ambulate: Modified Independent, distance (in feet), with assistive device Ambulation Assistance Device: Rolling walker Distance (in feet): 150' Patient will go up / down stairs: Will tolerate assessment Long-term goal to be met by: 05/26/25 Hemodialysis Patient Care Specialist Goal : Pt will ambulate 250' independently without AD Patient/Family Education Educated patient on the role of physical therapy, goals, plan of care, importance of increased activity, and discharge recommendations and fall prevention strategies, including need for supervision/ assistance with OOB activity and use of call light; patient verbalized understanding and demonstrated understanding. Plan Plan Treatment/Interventions: Endurance training, Patient/family training, Equipment eval/education, Gait training, Therapeutic Activity, Therapeutic Exercise, Stair Training PT Frequency during hospitalization: minimum 3x/week The plan of care and recommendations assesses the patient's and/or caregiver's readiness, willingness, and ability to provide or support functional mobility and ADL tasks as needed upon discharge. Time Start Time: 09 Stop Time: 1025 Time Calculation (min): 27 min Charges $Gait/Mobility: 8-22 mins $Therapeutic Activity: 1 unit Problem List Problem List[1] Past 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 Past 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: Diagnosis [...] MD; Location: ENDOSCOPY; Service: Gastroenterology; Laterality: N/A; LIVER BIOPSY N/A 04/23/2025 Procedure: EMERGENCYEXPLORATORY LAP, REVISION OF JJ ANASTOMSIS, GASTRIC LAVAGE; Surgeon: Alejandra Wilson MD; Location: OR; Service: Transplant; Laterality: N/A; LIVER TRANSPLANTATION N/A 04/18/2025 Procedure: LIVING DONOR LIVER TRANSPLANT; Surgeon: Ludin Jose MD; Location: OR; Service: Transplant; Laterality: N/A; PUSH ENTEROSCOPY N/A 04/23/2025 Procedure: PUSH ENTEROSCOPY; Surgeon: Kelsey Moyer MD; Location: ENDOSCOPY; Service: Gastroenterology; Laterality: N/A; UPPER GASTROINTESTINAL ENDOSCOPY 09/21/2022 [1] Patient Active Problem List Diagnosis Alcoholic cirrhosis of liver with ascites (CMS-HCC) Encounter for pre-transplant evaluation for liver transplant High risk surgery, pre-operative cardiovascular examination High risk due to smoking Other ascites Jaundice Fatigue Immunosuppression (CMS-HCC) Other specified abnormal findings of blood chemistry Acute bacterial bronchitis Asthma Alcohol use Alcohol use disorder, severe, dependence (CMS-HCC) Bite Chemical dependency (CMS-HCC) Cholelithiasis without obstruction Contusion of rib Cough End-stage liver disease (CMS-HCC) Cyst of kidney, acquired Disease of gallbladder, unspecified Disease of stomach and duodenum, unspecified Elevated bilirubin Esophageal varices without bleeding (CMS-HCC) Essential (primary) hypertension Exposure to COVID-19 virus Finger sprain Hepatitis C virus infection Hypokalemia Hyponatremia Lesion of liver Low back pain Nausea New onset seizure (CMS-HCC) Opiate dependence, continuous (CMS-HCC) Other diseases of stomach and duodenum Other disorders of bilirubin metabolism Portal hypertension (CMS-HCC) Shingles Splenomegaly, not elsewhere classified Strep throat Strep throat exposure Varicose veins of other specified sites Viral syndrome * Gloria Chen MD - 04/26/2025 9:48 AM EST Transplant Surgery Progress Note Name: Mindy Wade CSN: [id number] Date: 04/26/2025 9:48 AM OR Date: 04/18/2025 Subjective 1.4L NG output, mostly ice chips Continues to have residual bloody stool Objective Vitals: Temp: [97.6 ??F (36.4 ??C)-98.1 ??F (36.7 ??C)] 97.6 ??F (36.4 ??C) Heart Rate: [73-93] 90 Resp: [9] 18 BP: (103-131)/(65-83) 119/75 Arterial Line BP: (118-136)/(65-73) 136/73 I/O: Intake/Output Summary (Last 24 hours) at 04/26/2025 0948 Last data filed at 04/26/2025 0947 Gross per 24 hour Intake 2127.53 ml Output 4500 ml Net -2372.47 ml Physical Exam: Constitutional: awake, alert, no acute distress HEENT: Oropharynx with moist mucous membranes, nose and ears atraumatic, anicteric sclerae. NG in place Respiratory: normal effort Cardiovascular: RRR Abdomen: Soft, appropriately tender. Incision woundvac in place. Extremities: No gross deformities, acyanotic, skin cool and dry. Neuro: Alert. Psych: Affect appropriate for situation. Labs: Recent Labs 04/25/25 0813 04/25/25 2101 04/26/25 0747 WBC 5.3 5.2 5.5 HGB 8.5* 8.3* 8.9* HCT 24.6* 24.0* 25.8* PLT 44* 59* 70* Recent Labs 04/25/25 1740 04/26/25 0012 04/26/25 0609 NA 143 141 142 K 4.4 4.3 4.0 CL 113* 113* 114* CO2 22 22 22 BUN 29* 26* 23 CREATININE 0.59* 0.53* 0.51* GLUCOSE 61* 60* 75 CALCIUM 6.9* 7.5* 7.3* MG 2.2 2.2 2.1 PHOS 2.7 2.6 1.8* Recent Labs 04/24/25 1838 04/25/25 0004 04/25/25 0517 04/26/25 0013 04/26/25 0219 04/26/25 0744 POCGMD 97 79 74 60* 85 76 Recent Labs 04/24/25 0436 04/24/25 1229 04/25/25 0518 04/25/25 1134 04/26/25 0012 04/26/25 0609 AST 77* -- 100* -- -- 78* ALT 98* -- 128* -- -- 117* BILITOT 2.9* -- 4.6* -- -- 4.6* BILIDIRECT 2.19* -- 3.53* -- -- 3.20* ALKPHOS 84 -- 182* -- -- 299* ALBUMIN 2.4* 2.4* < > 2.3* 2.3* < > 2.3* 2.3* 2.3* < > = values in this interval not displayed. Recent Labs 04/24/25 0000 04/24/25 0436 04/25/25 0518 INR 1.1 1.1 1.1 PROTIME 14.9 14.7 14.3 Imaging: X-ray Portable Abdomen AP view Result Date: 04/26/2025 EXAM: XR PORTABLE ABDOMEN AP INDICATION: distended TECHNIQUE: AP portable supine COMPARISON: 04/23/2025. FINDINGS: NG tube has been advanced, with the tip now in the gastric antrum. The stomach is nondistended. Postsurgical changes in the abdomen are stable. Several surgical drains are present in the right upper quadrant. Mild distention of the small and large bowel, similar to prior imaging. IMPRESSION: 1. Mild distention of the bowel which may represent underlying postsurgical ileus. Report Verified by: Claude Yuen MD at 04/26/2025 8:59 AM EST US Abdomen Limited Result Date: 04/25/2025 EXAM: US ABDOMEN LIMITED EXAM: US DUPLEX [id number] COMPLETE INDICATION: Liver Transplant DATE: 04/25/2025 9:37 AM EST COMPARISON: April 23, 2025 and prior TECHNIQUE: Grayscale imaging was performed with attention to the right upper quadrant; color and spectral (duplex) Doppler analysis ofthe hepatic vasculature was also performed. FINDINGS: Liver: Normal grayscale appearance of the right liver allograft. No focal lesions. Biliary/CBD: No biliary dilatation evident. Common duct not measured. Gallbladder: Surgically absent.. Pancreas: Not visualized. Right kidney: 11 cm in length. Normal parenchymal echogenicity. No hydronephrosis. Other: Small volume subhepatic fluid. DOPPLER: Hepatic Veins: Patent right and middle hepatic veins with antegrade flow. Portal Veins: Patent portal vein with antegrade flow. Hepatic Arteries: Patent with antegrade flow. Resistive indices range from 0.51-0.59 IMPRESSION: RIGHT UPPER QUADRANT Normal appearance of the right liver allograft with a small amountof subhepatic fluid.. LIVER DOPPLER Patent hepatic vasculature.. Report Verified by: Mark Pittman MD at 04/25/2025 11:02 AM EST US Duplex [id number] Comp Result Date: 04/25/2025 EXAM: US ABDOMEN LIMITED EXAM: US DUPLEX [id number] COMPLETE INDICATION: Liver Transplant DATE: 04/25/2025 9:37 AM EST COMPARISON: April 23, 2025 and prior TECHNIQUE: Grayscale imaging was performed with attention to the right upper quadrant; color and spectral (duplex) Doppler analysis ofthe hepatic vasculature was also performed. FINDINGS: Liver: Normal grayscale appearance of the right liver allograft. No focal lesions. Biliary/CBD: No biliary dilatation evident. Common duct not measured. Gallbladder: Surgically absent.. Pancreas: Not visualized. Right kidney: 11 cm in length. Normal parenchymal echogenicity. No hydronephrosis. Other: Small volume subhepatic fluid. DOPPLER: Hepatic Veins: Patent right and middle hepatic veins with antegrade flow. Portal Veins: Patent portal vein with antegrade flow. Hepatic Arteries: Patent with antegrade flow. Resistive indices range from 0.51-0.59 IMPRESSION: RIGHT UPPER QUADRANT Normal appearance of the right liver allograft with a small amountof subhepatic fluid.. LIVER DOPPLER Patent hepatic vasculature.. Report Verified by: Mark Pittman MD at 04/25/2025 11:02 AM EST Assessment/Plan Mindy Wade is a 35 y.o. 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 ETOH/HCV s/p OLT 04/18 - bASA - POD1 Liver US normal, US 04/21 stable, 04/25 wnl GI bleeding Acute blood loss anemia 04/23 GI bleed, requiring 5u pRBC, 2FFP, 2 cryo, 1 platelet Taken back to the OR on 04/23, JJ redone - NGT to remain, ok for hard candy - consider TPN... - Fluconazole ppx for 1 month - zosyn x4d Acute Hypoxic Respiratory Failure - Extubated, on RA Immunosuppression: - Cellcept 500 mg BID - Prednisone Taper - Tacrolimus: 0.5 BID - Bactrim and valcyte Endocrine: - Home medications: none - HDSSI PPX: CARIE, SCD, PPI Dispo: SICU GLORIA CHEN MD Transplant Surgery Cosigned by Ludin Jose MD at 04/26/2025 12:54 PM EST Associated attestation - Ludin Jose MD - 04/26/2025 12:54 PM EST Transplant Surgery Attending Attestation I have seen and examined the patient and agree with the plan. All points of care were reviewed in amultidisciplinary fashion with the housestaff and teams involved. Immunosuppression was reviewed and adjusted accordingly. This note represents care provided with the multidisciplinary team on 04/26/2025. NGT with 1.4 out, maybe high due to po intake of ice chips. Still having some melena but hgb isstable. Seems a bit tympanic this morning. Will get KUB. Ludin Jose MD [employer] Coverage Merchandiser of Transplant Surgery [phone] (m) * Raf Talley MD - 04/26/2025 7:00 AM EST Surgical ICU Consult Note / Progress Note Patient: Mindy Wade Date/Time: 04/26/2025 6:56 AM HPI: Mindy Wade is a 35 y.o. 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 She has been ETOH free for several years who presented on 04/18/2025 from the floor for concerns of shock. She was having destiney red blood from stool, hypotension, lehargy, hypotension. She is post-op day 4 s/p liver transplant from living donor transplant. Admitted to SICU with concerns for hemorrhagic shock. Home Medications: Albuterol Carvedilol 3.125 mg BID Lasix 60 mg BID Gabapentin 800 TID Spironolactone 150 BID MEDICAL HISTORY: Past 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: Diagnosis Date Abdominal hernia 02/21/2023 Alcoholic hepatitis (CMS-HCC) Anxiety Ascites Chronic diarrhea 08/21/2022 Cirrhosis (CMS-HCC) Cystitis Depression Hepatitis C Past Surgical History: Procedure Laterality Date APPENDECTOMY CYST REMOVAL Right had a cystic lesion under right breast with hematoma and cyst per patient which was removed ESOPHAGOGASTRODUODENOSCOPY N/A 07/28/2024 Procedure: EGD; Surgeon: Mario Ramirez MD; Location: ENDOSCOPY; Service: Gastroenterology; Laterality: N/A; LIVER BIOPSY N/A 04/23/2025 Procedure: EMERGENCYEXPLORATORY LAP, REVISION OF JJ ANASTOMSIS, GASTRIC LAVAGE; Surgeon: Alejandra Wilson MD; Location: OR; Service: Transplant; Laterality: N/A; LIVER TRANSPLANTATION N/A 04/18/2025 Procedure: LIVING DONOR LIVER TRANSPLANT; Surgeon: Ludin Jose MD; Location: OR; Service: Transplant; Laterality: N/A; PUSH ENTEROSCOPY N/A 04/23/2025 Procedure: PUSH ENTEROSCOPY; Surgeon: Kelsey Moyer MD; Location: ENDOSCOPY; Service: Gastroenterology; Laterality: N/A; UPPER GASTROINTESTINAL ENDOSCOPY 09/21/2022 Home Medications Medication Sig Taking? Last Dose carvediloL (COREG) 3.125 MG tablet Take 1 tablet (3.125 mg total) by mouth 2 times a day with meals. Patient taking differently: Take 1 tablet (3.125 mg total) by mouth at bedtime. Yes 04/17/2025 Bedtime furosemide (LASIX) 20 MG tablet TAKE 3 TABLETS(60 MG) BY MOUTH TWICE DAILY Yes 04/17/2025 Morning gabapentin (NEURONTIN) 800 MG tablet Take 1 tablet (800 mg total) by mouth 3 times a day. Yes 04/17/2025 Bedtime acetaminophen (TYLENOL) 325 MG tablet Take 3 tablets (975 mg total) by mouth every 8 hours. aspirin 81 MG chewable tablet Chew 1 tablet (81 mg total) by mouth daily. calcium-vitamin D 500 mg-5 mcg (200 unit) per tablet Take 1 tablet by mouth 2 times a day with meals. enoxaparin (LOVENOX) 40 mg/0.4 mL Syrg Inject 0.4 mLs (40 mg total) subcutaneously daily. famotidine (PEPCID) 20 MG tablet Take 1 tablet (20 mg total) by mouth 2 times a day. fluconazole (DIFLUCAN) 200 MG tablet Take 1 tablet (200 mg total) by mouth daily for 30 days. mycophenolate (CELLCEPT) 250 mg capsule Take 2 capsules (500 mg total) by mouth 2 times a day. naloxone (NARCAN) 4 mg/actuation Oolitic Apply 1 spray in one nostril if needed. Call 911. May repeat dose in other nostril if no response in 3 minutes. ondansetron (ZOFRAN-ODT) 8 MG disintegrating tablet Take 1 tablet (8 mg total) by mouth every 8 hours as needed for Nausea. 04/15/2025 polyethylene glycol (GLYCOLAX) 17 gram/dose powder Mix 1 capful (17 g) in 8 oz of liquid and drink by mouth daily as needed (Constipation). predniSONE (DELTASONE) 5 MG tablet Take 4 tablets (20 mg total) by mouth daily. senna-docusate (SENNOSIDES-DOCUSATE SODIUM) 8.6-50 mg per tablet Take 1 tablet by mouth at bedtime as needed for Constipation. sulfamethoxazole-trimethoprim (BACTRIM) 400-80 mg per tablet Take 1 tablet by mouth daily. tacrolimus (PROGRAF) 1 MG capsule Take 10 capsules (10 mg total) by mouth 2 times a day. valGANciclovir (VALCYTE) 450 mg tablet Take 1 tablet (450 mg total) by mouth daily. Scheduled Meds: aspirin 81 mg Oral Daily with breakfast [Held by provider] carvediloL 3.125 mg Oral BID [Held by provider] cyclobenzaprine 10 mg Oral TID fluconazole in sodium chloride (iso-osm) 200 mg Intravenous Q24H gabapentin 900 mg Oral TID heparin 5,000 Units Subcutaneous 3 times per day insulin regular 0-12 Units Subcutaneous Q6H Scheduled lidocaine 2 patch Transdermal Daily 0900 melatonin 3 mg Oral Nightly (2099) methocarbamoL 1,000 mg Intravenous Q8H mycophenolate (CELLCEPT) IVPB 500 mg Intravenous Q12H pantoprazole (PROTONIX) IV 40 mg Intravenous BID6 piperacillin-tazobactam (ZOSYN) IV extended interval 3.375 g Intravenous Q8H [Held by provider] polyethylene glycol 17 g Oral Daily 0900 predniSONE 20 mg Oral Daily 0900 [Held by provider] scopolamine 1 patch Transdermal Q72H [Held by provider] senna-docusate 1 tablet Oral BID [Held by provider] simethicone 80 mg Oral PC/HS sulfamethoxazole-trimethoprim 80 mg of trimethoprim Oral Daily 0900 tacrolimus 1 mg Sublingual BID traZODone 50 mg Oral Nightly (2100) valGANciclovir 450 mg Per NG / OG tube Daily 0900 Continuous Infusions: dextrose 5 % and 0.9 % NaCl 75 mL/hr (04/26/25 0100) [Held by provider] sodium chloride 0.9 % Stopped (04/26/25 0046) PRN Meds: albuterol, dextrose 10% in water OR dextrose 10% in water, HYDROmorphone OR HYDROmorphone, ipratropium-albuteroL, ondansetron, phenoL Allergies[1] Social History Tobacco Use Smoking status: Former Current packs/day: 0.00 Average packs/day: 0.3 packs/day for 1.2 years (0.3 ttl pk-yrs) Types: Cigarettes Start date: 07/22/2014 Quit date: 07/22/2015 Years since quittin.7 Smokeless tobacco: Never Substance Use Topics Alcohol use: Not Currently Family History Problem Relation Age of Onset Liver disease Father Cirrhosis Father REVIEW OF SYSTEMS: Review of systems conducted with patient and pertinent positives are noted in HPI. INTERVAL EVENTS 24 HOUR EVENTS: Pain control improving Arm pain prompting DVT study, in progress HEENT Exam: Normocephalic, atraumatic A/P: - NGT remains to low wall suction. Non bloody - No active issues RESPIRATORY Exam: No acute distress, non-labored respirations, saturating well on RA Other O2 Device: Patient Vitals for the past 5 hrs: O2 Device 04/26/25 0420 None (Room air) Blood Gas: Lab 04/25/25 0813 04/24/25 1229 04/24/25 0543 04/24/25 0000 04/23/25 1811 PH ARTERIAL 7.39 7.37 7.37 7.34* 7.34* PCO2 ARTERIAL 38 39 40 45 44 PO2 ARTERIAL 133* 109* 107* 102* 107* HCO3 ARTERIAL 24 23 23 24 23 BASE EXCESS ARTERIAL -1.8 -2.5* -2.0 -1.6 -2.1* % HBO2 96.5 97.1 97.3 96.7 96.3 O2 SATURATION ARTERIAL 100 99 100 100 100 - P:F Ratio: No PaO2 result within 12 hours. IBW: [place] body weight: 57 kg (125 lb 10.6 oz) Adjusted ideal body weight: 64.4 kg (141 lb 15.3 oz) A/P: #Hx of latent TB s/p tx #Bronchospasm #Supplemental Oxygen Requirement #Acute Hypoxic Respiratory Failure Received Mg 2g, epi pushes, Calcium gluconate during sever bronchospasm phase that lead to respiratory failure. Unable to move chest wall. Turned pale with acrocyanosis - Intubated, sedated - Goal SpO2: >92% - 04/25 Extubated Continue IS Wean O2 as able Pulmonary toilet CARDIOVASCULAR Exam: Regular rate, regular rhythm Vitals: Temp: [97.9 ??F (36.6 ??C)-98.1 ??F (36.7 ??C)] 97.9 ??F (36.6 ??C) Heart Rate: [73-93] 75 Resp: [8-19] 12 BP: (102-131)/(65-83) 113/76 Arterial Line BP: (117-136)/(64-73) 136/73 Hemodynamics: No data found. Cardiac Labs: Lab 04/25/25 0813 04/23/25 1130 04/23/25 0745 04/23/25 0426 LACTATE BLOOD ARTERIAL 0.6 -- 1.6 1.3 LACTATE -- 1.0 -- 1.3 Prior Cardiac Data: - Echo (02/01/25): LVEF 55-60% - Left ventricle: The cavity size is [...] baseline or with provocation, shows a very [id number]-ub-[id number] atrial level shunt. There is a shunt which may be intrapulmonary or intracardiac, but cannot be confidently differentiated. - Tricuspid valve: There is mild-moderate regurgitation. - Pulmonary arteries: The peak systolic pressure is 37mm Hg. A/P #Hemorrhagic shock- Resolved - transfused 4 PRBC, 1FFP, 1 cryo, 1 platelets in index case 4 u pRBC after GI bleed MAP>65 - No changes today GASTROINTESTINAL Exam: Soft, distended, tender in the LUQ mainly Drain Output: Output by Drain (mL) 04/24/25 0701 - 04/24/25 1900 04/24/25 1901 - 04/25/25 0700 04/25/25 0701 - 04/25/25 1900 04/25/25 1901 - 04/26/25 0656 Drain sub hepatic #1 Abdomen Right;Superior 100 225 210 275 Drain hilar #2 Abdomen Right;Superior 125 275 300 475 Negative Pressure Wound Therapy Abdomen Medial 0 0 0 0 GI Labs: Lab 04/26/25 0012 04/25/25 1740 04/25/25 1134 04/25/25 0518 04/24/25 1229 04/24/25 0436 04/23/25 1146 04/23/25 1130 04/23/25 0426 04/23/25 0223 ALK PHOS -- -- -- 182* -- 84 -- 55 63 63 ALT -- -- -- 128* -- 98* -- 78* 81* 89* AST -- -- -- 100* -- 77* -- 65* 59* 63* BILIRUBIN TOTAL -- -- -- 4.6* -- 2.9* -- 2.7* 1.4 1.3 ALBUMIN -- -- -- 2.3* -- 2.4* -- 2.3* 2.2* 2.0* ALBUMINKID 2.3* 2.3* 2.3* 2.3* < > 2.4* < > 2.3* 2.2* 2.0* BILIRUBIN DIRECT -- -- -- 3.53* -- 2.19* -- 2.09* 0.92* 0.80* TOTAL PROTEIN -- -- -- 3.8* -- 3.9* -- 3.6* 3.4* <3.0* < > = values in this interval not displayed. A/P #alcoholic cirrhosis s/p living donor liver transplant 04/18 #c/f for GI bleed #Melena #Coffee ground emesis #S/p ex-lap, opening of JJ, closure with wound vac - Diet: NPO - NGT to remain - Incision wound vac to remain until POD4 - protonix IV BID - CRYSTAL drains - Hilar drain 775 SS - subhepatic drain 485 SS #Bowel Regimen - held while NPO, 1 bowel movement over last 24 hrs #Nausea - Zofran PRN #GI Prophylaxis - Protonix 40 bid NUTRITION BMI: Body mass index is 27.69 kg/m??. Current Diet: Diet/Nutrition Orders Diet NPO Frequency: Effective Now Number of Occurrences: Until Specified Dietary nutrition supplements Frequency: TID Number of Occurrences: Until Specified Order Questions: Select Supplement: Boost Plus-high calorie high protein supplement Prealbumin: A/P: #Risk for Malnutrition - NPO per primary team - Advance diet as per primary Primary looking to initiate TPN today FLUIDS / ELECTROLYTES / RENAL Labs: Lab 04/26/25 0012 04/25/25 1740 04/25/25 1134 04/25/25 0518 04/25/25 0005 SODIUM 141 143 143 142 142 POTASSIUM 4.3 4.4 4.4 4.2 4.5 CHLORIDE 113* 113* 114* 113* 112* CO2 22 22 21 26 25 BUN 26* 29* 31* 35* 34* CREATININE 0.53* 0.59* 0.66 0.80 0.85 GLUCOSE 60* 61* 74 73 74 CALCIUM 7.5* 6.9* 7.1* 7.0* 7.3* MAGNESIUM 2.2 2.2 2.3 2.4 2.5 PHOSPHORUS 2.6 2.7 2.0* 2.8 3.3 EGFR >90 >90 >90 >90 >90 Admission Wt: Weight: 156 lb (70.8 kg) Current Wt: Weight: 166 lb 6.4 oz (75.5 kg) Intake/Output: Intake/Output Summary (Last 24 hours) at 04/26/2025 0656 Last data filed at 04/26/2025 0604 Gross per 24 hour Intake 680 ml Output 4410 ml Net -3730 ml UOP: 1,150 mL/24 hrs IVF: dextrose 5 % and 0.9 % NaCl, Last Rate: 75 mL/hr (04/26/25 0100) [Held by provider] sodium chloride 0.9 %, Last Rate: Stopped (04/26/25 0046) Labs: Lab 04/26/25 0012 04/25/25 1740 04/25/25 1134 04/25/25 0518 04/25/25 0005 CO2 22 22 21 26 25 BUN 26* 29* 31* 35* 34* CREATININE 0.53* 0.59* 0.66 0.80 0.85 EGFR >90 >90 >90 >90 >90 Lab 04/25/25 0813 04/24/25 1229 04/24/25 0543 04/24/25 0000 04/23/25 1811 PH ARTERIAL 7.39 7.37 7.37 7.34* 7.34* PCO2 ARTERIAL 38 39 40 45 44 PO2 ARTERIAL 133* 109* 107* 102* 107* HCO3 ARTERIAL 24 23 23 24 23 BASE EXCESS ARTERIAL -1.8 -2.5* -2.0 -1.6 -2.1* % HBO2 96.5 97.1 97.3 96.7 96.3 O2 SATURATION ARTERIAL 100 99 100 100 100 A/P: #Fluid Balance I/O last 3 completed shifts: In: 1201.3 [P.O.:680; I.V.:36.3; NG/GT:190; IV Piggyback:295] Out: 5284 [Urine:1819; Emesis/NG output:1850; Drains:1235; Stool:380] I/O this shift: In: 350 [P.O.:320; NG/GT:30] Out: 2450 [Urine:500; Emesis/NG output:1200; Drains:750] NGT 1050 biliogastric #Electrolytes - Manual Electrolyte Replacement - Daily Renal/Mg - no repletion needed today SKIN / MUSCULOSKELETAL Exam: Normal ROM, no rashes A/P: - No active issues HEMATOLOGIC Labs: Lab 04/25/25 2101 04/25/25 0813 04/25/25 0518 04/25/25 0005 04/24/25 1840 WBC 5.2 5.3 4.9 6.1 7.2 HEMATOCRIT 24.0* 24.6* 23.6* 24.5* 25.4* HEMOGLOBIN 8.3* 8.5* 8.1* 8.4* 8.9* PLATELETS 59* 44* 42* 43* 47* Lab 04/25/25 0518 04/24/25 0436 04/24/25 0000 04/23/25 1811 04/23/25 1344 INR 1.1 1.1 1.1 1.1 1.2* A/P: #Hemorrhagic shock - transfused 4 PRBC, 1FFP, 1 cryo, 1 platelets, + 2 pRBCs 04/23 4u - q12 cbc #Coagulopathy - Trend INR, TEG PRN active bleeding - Transfuse FFP for R Time >55 or INR >1.7 and bleeding - Transfuse cryoprecipitate for Alpha Angle <55 or low fibrinogen - Transfuse platelets for MA <55 ENDOCRINE Glucose Range: Lab 04/26/25 0219 04/26/25 0013 04/26/25 0012 04/25/25 1740 04/25/25 1134 04/25/25 0518 04/25/25 0517 04/25/25 0005 04/25/25 0004 04/24/25 1840 04/24/25 1838 04/24/25 1229 04/24/25 1225 04/24/25 0438 04/24/25 0436 04/24/25 0012 POC GLU MONITORING DEVICE 85 60* -- -- -- -- 74 -- 79 -- 97 -- 112* 103* -- 118* GLUCOSE -- -- 60* 61* 74 73 -- 74 -- 100 -- 117* -- -- 99 -- Hgb A1c: Lab Results Component Value Date HGBA1C 4.4 04/11/2025 Insulin Regimen: Insulin Orders Dose Frequency Start End insulin regular (HumuLIN R/NovoLIN R) injection Soln 0-12 Units 0-12 Units Every 6 hours scheduled 04/19/2025 -- Admin Instructions: HIGH ALERT MEDICATION Route: Subcutaneous A/P #Hyperglycemia - HDSSI for FSBG >180 - Daily Renal and FSBG q6h - no correction needed over last 24 hours INFECTIOUS DISEASE Tmax: Temp (24hrs), Av ??F (36.7 ??C), Min:97.9 ??F (36.6 ??C), Max:98.1 ??F (36.7 ??C) WBC Trend: Lab 04/25/25 2101 04/25/25 0813 04/25/25 0518 04/25/25 0005 04/24/25 1840 WBC 5.2 5.3 4.9 6.1 7.2 UA: No results found for: COLORU , CLARITYU , PH , PROTEINUA , PHUR , LABSPEC , GLUCOSEU , BLOODU , LEUKOCYTESUR , NITRITE , BILIRUBINUR , UROBILINOGEN , RBCUA , WBCUA , BACTERIA , AMORPHOUS , CRYSTAL , CASTS Blood Cultures: Lab Results Component Value Date LABGRAM Rare Polymorphonuclear Leukocytes Seen 04/23/2025 LABGRAM No Organisms Seen; 04/23/2025 Micro Summary: Microbiology Results Date and Time Order Name Sensitivity Status Organisms Specimen ID Source 04/23/2025 9:53 AM Routine Culture plus Stain (Surgical Swab) Preliminary 1 Abdomen 04/23/2025 9:53 AM Fungus culture (Surgical Swab) Preliminary 1 Abdomen 04/23/2025 9:53 AM Anaerobic culture (Surgical Swab) Preliminary 1 Abdomen Current Abx: Current Anti-Infectives Dose Frequency Start End fluconazole (DIFLUCAN) 200 mg in iso-osm sodium chloride 100 mL 200 mg Every 24 hours 04/23/2025 -- Admin Instructions: DO NOT REFRIGERATE. Route: Intravenous piperacillin-tazobactam (ZOSYN) 3.375 g in sodium chloride 0.9 % 100 mL [id number] IVPB 3.375 g Every8 hours 04/25/2025 -- Admin Instructions: Use [id number] Adapter - Mix Thoroughly Before Administration Route: Intravenous Linked Group 1: Placed in Followed by Linked Group sulfamethoxazole-trimethoprim (BACTRIM) 200-40 mg/5 mL suspension 10 mL 80 mg of trimethoprim Daily04/26/2025 -- Route: Oral valGANciclovir (VALCYTE) 50 mg/mL oral solution 450 mg 450 mg Daily 04/26/2025 -- Admin Instructions: LEVEL 2 HAZARDOUS MEDICATION Route: Per NG / OG tube A/P: #Antibiotics - Mary-op abx: Diflucan for take back ppx, Zosyn (END POD4) - no leukocytosis, afebrile, no other signs of infection #Immunosuppression - Prednisone taper - [place] BID - MMF #Transplant ppx - Bactrim and Valcyte NEUROLOGIC Exam: Alert, oriented, no focal signs, moving all four extremities prior to intubation and seadtion GCS: [place] Coma Scale Score: 15 (Eye Openin, Best Verbal Response: 5, Best Motor Response: 6) No data found. A/P: #Sedation/Analgesia - Dilaudid (12x doses in last 24 hours) - [facility] Exam: Intubated and sedation; unable to assess CAM: Overall CAM-ICU : No Delirium RASS: [place] Agitation Sedation Scale: 0 A/P: #Agitation - Seroquel PRN ICU CHECKLIST Diet: Diet/Nutrition Orders Diet NPO Frequency: Effective Now Number of Occurrences: Until Specified Dietary nutrition supplements Frequency: TID Number of Occurrences: Until Specified Order Questions: Select Supplement: Boost Plus-high calorie high protein supplement Bowel Reg: Held GI PPx: Protonix IV DVT PPx: Held --> Discuss with primary Current Anticoagulation (Only) aspirin chewable tablet 81 mg heparin (porcine) injection 5,000 Units LDA: - Urinary Catheter: removed - Central Line: CVC out, PICC - Arterial Line: removed PT/OT: Consulted - PT Recs: Recommendation: Anticipate no further PT needed after discharge (pending further mobility assessment) Equipment Recommended: Defer until further assessment - OT Recs: Recommendation: Home OT Equipment Recommendations: Tub Transfer Bench Tub Transfer Bench Justification: Patient is at risk to fall in shower environment, Patient has decreased activity tolerance requiring use of seat during bathing tasks - GARNISHMENT SPECIALIST Recs: Dispo: stepdown Code Status: Full Code Signed: LYNN GAGE DO 04/26/2025, 6:56 AM ICU ATTENDING PROGRESS NOTE: I have examined Mindy Wade, reviewed the events of the previous 24 hours, reviewed, confirmed and amended the resident's data, history and physical exam as needed. The case has been discussed withthe Transplant team. I note the following in my assessment and will implement this plan of coordinated critical care management as follows: This patient was seen by the SICU resident team, nurses, pharmacist, and respiratory therapist. I have personally seen, examined, and discussed this patient with the critical care team on 04/26/2025. My assessment is noted below, and the multidisciplinary recommendations have been discussed with theTransplant team. Mindy Wade remains in the ICU to address deficits in multiple systems. Each system was discussedon rounds and the details are listed in the resident note above. Adjustments to the note were made while rounds were performed to include changes agreed upon by the multidisciplinary team. My changeswere added to the resident note. My assessment reveals: 35 year old female with complicated PMH admitted to ICU with concerns for hemorrhagic shock. PMH TB HCV Admittedto ICU on 04/18/2025 for hypotesnion this is 4 days post OLT HEENT: No Acute Issues RESPIRATORY: Atelectasis/pulmonary collapse Hypoxia P:F: 267.5 On 1 L Extubated CARDIOVASCULAR: No acute issues NUTRITION: No acute issues Start diet today GASTROINTESTINAL: S/p OLT Acute GI bleed Transfused Resuscitated Re-exploration complete No further bleeding Repeat US shows good hepatic flow FLUIDS / ELECTROLYTES: No acute issues RENAL: No acute issues SKIN/MUSCULOSKELETAL: NIRAV HEMATOLOGIC: Acute post hemorrhagic anemia Transfused Resuscitated Stabilized s/p exploration Hgb climbing ENDOCRINE: No acute issues INFECTIOUS DISEASE: Periop abx and immunosuppression per primary NEUROLOGIC: No acute issues PSYCHIATRIC, PAIN, SEDATION: Pain Management Add binder On robaxin Having incisional pain Increasing pain control INJURY / DISEASE SPECIFIC NEEDS: No acute issues ACTIVE LINES; Patient Lines/Drains/Airways Status Active Epidural Line / PICC Line / PIV Line / ART Line / Line / CVC Line Name Placement date Placement time Site Days PICC Double Lumen 04/21/25 Right Brachial 04/21/25 0839 Brachial 5 Central Line? Yes - Reason: Hemodynamic monitoring ACTIVE /DRAINS: Urinary Catheter? Ybarra - Reason: Adequate I/O DVT Prophylaxis: Subcutaneous Heparin GI Prophylaxis: PPI DISPOSITION: Okay for stepdown today Total critical care time spent caring for this patient over the past 24 hours, including direct patient contact, management of life support systems, review of data (i.e.: imaging and lab), discussionwith team members, and excluding time spent on procedures: 32 minutes Raf Talley MD 04/26/2025 9:25 AM [1] No Known Drug Allergies or Adverse Reactions * Tresa Beltran PharmD - 04/25/2025 4:58 PM EST Transplant Pharmacy Note Transplant pharmacy is following Mindy Wade during hospital admission and will perform the following activities related to transplant pharmacotherapy: 1. Ensure appropriate management and titration of immunosuppressive, prophylactic, and other supportive care medications; 2. Monitor for any adverse drug effects; 3. Review the patient's medication profile for any potential drug interaction. Tresa Beltran PharmD Solid Organ Transplant Clinical Bi Tester Contact via [employer] Secure Chat * Gloria Chen MD - 04/25/2025 11:21 AM EST Transplant Surgery Progress Note Name: Mindy Wade CSN: [id number] Date: 04/25/2025 11:21 AM OR Date: 04/18/2025 Subjective On RA 1L NG output BM x3, residual bloody stool Objective Vitals: Temp: [97.9 ??F (36.6 ??C)-98.3 ??F (36.8 ??C)] 97.9 ??F (36.6 ??C) Heart Rate: [74-100] 78 Resp: [6-26] 9 BP: (100-125)/(54-84) 120/76 Arterial Line BP: (99-129)/(56-72) 123/67 I/O: Intake/Output Summary (Last 24 hours) at 04/25/2025 1121 Last data filed at 04/25/2025 1100 Gross per 24 hour Intake 901.34 ml Output 3456 ml Net -2554.66 ml Physical Exam: Constitutional: awake, alert, no acute distress HEENT: Oropharynx with moist mucous membranes, nose and ears atraumatic, anicteric sclerae. NG in place Respiratory: normal effort Cardiovascular: RRR Abdomen: Soft, appropriately tender. Incision woundvac in place. Extremities: No gross deformities, acyanotic, skin cool and dry. Neuro: Alert. Follows commands while intubated. Psych: Affect appropriate for situation. Labs: Recent Labs 04/25/25 0005 04/25/25 0518 04/25/25 0813 WBC 6.1 4.9 5.3 HGB 8.4* 8.1* 8.5* HCT 24.5* 23.6* 24.6* PLT 43* 42* 44* Recent Labs 04/24/25 1840 04/25/25 0005 04/25/25 0518 NA 141 142 142 K 4.6 4.5 4.2 CL 112* 112* 113* CO2 24 25 26 BUN 33* 34* 35* CREATININE 0.93 0.85 0.80 GLUCOSE 100 74 73 CALCIUM 7.3* 7.3* 7.0* MG 2.4 2.5 2.4 PHOS 3.5 3.3 2.8 Recent Labs 04/24/25 0012 04/24/25 0438 04/24/25 1225 04/24/25 1838 04/25/25 0004 04/25/25 0517 POCGMD 118* 103* 112* 97 79 74 Recent Labs 04/23/25 1130 04/23/25 1146 04/24/25 0436 04/24/25 1229 04/25/25 0005 04/25/25 0518 AST 65* -- 77* -- -- 100* ALT 78* -- 98* -- -- 128* BILITOT 2.7* -- 2.9* -- -- 4.6* BILIDIRECT 2.09* -- 2.19* -- -- 3.53* ALKPHOS 55 -- 84 -- -- 182* ALBUMIN 2.3* 2.3* < > 2.4* 2.4* < > 2.3* 2.3* 2.3* < > = values in this interval not displayed. Recent Labs 04/24/25 0000 04/24/25 0436 04/25/25 0518 INR 1.1 1.1 1.1 PROTIME 14.9 14.7 14.3 Imaging: US Abdomen Limited Result Date: 04/25/2025 EXAM: US ABDOMEN LIMITED EXAM: US DUPLEX [id number] COMPLETE INDICATION: Liver Transplant DATE: 04/25/2025 9:37 AM EST COMPARISON: April 23, 2025 and prior TECHNIQUE: Grayscale imaging was performed with attention to the right upper quadrant; color and spectral (duplex) Doppler analysis ofthe hepatic vasculature was also performed. FINDINGS: Liver: Normal grayscale appearance of the right liver allograft. No focal lesions. Biliary/CBD: No biliary dilatation evident. Common duct not measured. Gallbladder: Surgically absent.. Pancreas: Not visualized. Right kidney: 11 cm in length. Normal parenchymal echogenicity. No hydronephrosis. Other: Small volume subhepatic fluid. DOPPLER: Hepatic Veins: Patent right and middle hepatic veins with antegrade flow. Portal Veins: Patent portal vein with antegrade flow. Hepatic Arteries: Patent with antegrade flow. Resistive indices range from 0.51-0.59 IMPRESSION: RIGHT UPPER QUADRANT Normal appearance of the right liver allograft with a small amountof subhepatic fluid.. LIVER DOPPLER Patent hepatic vasculature.. Report Verified by: Mark Pittman MD at 04/25/2025 11:02 AM EST US Duplex Cqo-Urk-[id number] Comp Result Date: 04/25/2025 EXAM: US ABDOMEN LIMITED EXAM: US DUPLEX [id number] COMPLETE INDICATION: Liver Transplant DATE: 04/25/2025 9:37 AM EST COMPARISON: April 23, 2025 and prior TECHNIQUE: Grayscale imaging was performed with attention to the right upper quadrant; color and spectral (duplex) Doppler analysis ofthe hepatic vasculature was also performed. FINDINGS: Liver: Normal grayscale appearance of the right liver allograft. No focal lesions. Biliary/CBD: No biliary dilatation evident. Common duct not measured. Gallbladder: Surgically absent.. Pancreas: Not visualized. Right kidney: 11 cm in length. Normal parenchymal echogenicity. No hydronephrosis. Other: Small volume subhepatic fluid. DOPPLER: Hepatic Veins: Patent right and middle hepatic veins with antegrade flow. Portal Veins: Patent portal vein with antegrade flow. Hepatic Arteries: Patent with antegrade flow. Resistive indices range from 0.51-0.59 IMPRESSION: RIGHT UPPER QUADRANT Normal appearance of the right liver allograft with a small amountof subhepatic fluid.. LIVER DOPPLER Patent hepatic vasculature.. Report Verified by: Mark Pittman MD at 04/25/2025 11:02 AM EST Assessment/Plan Mindy Wade is a 35 y.o. 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 ETOH/HCV s/p OLT 04/18 - bASA - POD1 Liver US normal, US 04/21 stable - LFT uptrending, repeat u/s today GI bleeding Acute blood loss anemia 04/23 GI bleed, requiring 5u pRBC, 2FFP, 2 cryo, 1 platelet Taken back to the OR on 04/23, JJ redone - NGT to remain - consider TPN tomorrow - Fluconazole ppx for 1 month - zosyn x4d Acute Hypoxic Respiratory Failure - Extubated, on RA Immunosuppression: - Cellcept 500 mg BID - Prednisone Taper - Tacrolimus: 0.5 BID - Bactrim and valcyte Endocrine: - Home medications: none - HDSSI PPX: CARIE, SCD, PPI Dispo: SICU GLORIA CHEN MD Transplant Surgery Cosigned by Ludin Jose MD at 04/25/2025 8:14 PM EST Associated attestation - Ludin Jose MD - 04/25/2025 8:14 PM EST Transplant Surgery Attending Attestation I have seen and examined the patient and agree with the plan. All points of care were reviewed in amultidisciplinary fashion with the housestaff and teams involved. Immunosuppression was reviewed and adjusted accordingly. This note represents care provided with the multidisciplinary team on 04/25/2025. Massive GI bleed from the j-j anastomosis over the weekend. S/p exploration. LFT's up today, likely due to hemodynamic instability. Ludin Jose MD Retail Coverage Merchandiser of Transplant Surgery [phone] (m) * Raf Talley MD - 04/25/2025 6:53 AM EST Surgical ICU Consult Note / Progress Note Patient: Mindy Wade Date/Time: 04/25/2025 8:35 AM HPI: Mindy Wade is a 35 y.o. 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 She has been ETOH free for several years who presented on 04/18/2025 from the floor for concerns of shock. She was having destiney red blood from stool, hypotension, lehargy, hypotension. She is post-op day 4 s/p liver transplant from living donor transplant. Admitted to SICU with concerns for hemorrhagic shock. Home Medications: Albuterol Carvedilol 3.125 mg BID Lasix 60 mg BID Gabapentin 800 TID Spironolactone 150 BID MEDICAL HISTORY: Past 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: Diagnosis Date Abdominal hernia 02/21/2023 Alcoholic hepatitis (CMS-HCC) Anxiety Ascites Chronic diarrhea 08/21/2022 Cirrhosis (CMS-HCC) Cystitis Depression Hepatitis C Past Surgical History: Procedure Laterality Date APPENDECTOMY CYST REMOVAL Right had a cystic lesion under right breast with hematoma and cyst per patient which was removed ESOPHAGOGASTRODUODENOSCOPY N/A 07/28/2024 Procedure: EGD; Surgeon: Mario Ramirez MD; Location: ENDOSCOPY; Service: Gastroenterology; Laterality: N/A; LIVER TRANSPLANTATION N/A 04/18/2025 Procedure: LIVING DONOR LIVER TRANSPLANT; Surgeon: Ludin Jose MD; Location: OR; Service: Transplant; Laterality: N/A; UPPER GASTROINTESTINAL ENDOSCOPY 09/21/2022 Home Medications Medication Sig Taking? Last Dose carvediloL (COREG) 3.125 MG tablet Take 1 tablet (3.125 mg total) by mouth 2 times a day with meals. Patient taking differently: Take 1 tablet (3.125 mg total) by mouth at bedtime. Yes 04/17/2025 Bedtime furosemide (LASIX) 20 MG tablet TAKE 3 TABLETS(60 MG) BY MOUTH TWICE DAILY Yes 04/17/2025 Morning gabapentin (NEURONTIN) 800 MG tablet Take 1 tablet (800 mg total) by mouth 3 times a day. Yes 04/17/2025 Bedtime acetaminophen (TYLENOL) 325 MG tablet Take 3 tablets (975 mg total) by mouth every 8 hours. aspirin 81 MG chewable tablet Chew 1 tablet (81 mg total) by mouth daily. calcium-vitamin D 500 mg-5 mcg (200 unit) per tablet Take 1 tablet by mouth 2 times a day with meals. enoxaparin (LOVENOX) 40 mg/0.4 mL Syrg Inject 0.4 mLs (40 mg total) subcutaneously daily. famotidine (PEPCID) 20 MG tablet Take 1 tablet (20 mg total) by mouth 2 times a day. fluconazole (DIFLUCAN) 200 MG tablet Take 1 tablet (200 mg total) by mouth daily for 30 days. mycophenolate (CELLCEPT) 250 mg capsule Take 2 capsules (500 mg total) by mouth 2 times a day. naloxone (NARCAN) 4 mg/actuation Oolitic Apply 1 spray in one nostril if needed. Call 911. May repeat dose in other nostril if no response in 3 minutes. ondansetron (ZOFRAN-ODT) 8 MG disintegrating tablet Take 1 tablet (8 mg total) by mouth every 8 hours as needed for Nausea. 04/15/2025 polyethylene glycol (GLYCOLAX) 17 gram/dose powder Mix 1 capful (17 g) in 8 oz of liquid and drink by mouth daily as needed (Constipation). predniSONE (DELTASONE) 5 MG tablet Take 4 tablets (20 mg total) by mouth daily. senna-docusate (SENNOSIDES-DOCUSATE SODIUM) 8.6-50 mg per tablet Take 1 tablet by mouth at bedtime as needed for Constipation. sulfamethoxazole-trimethoprim (BACTRIM) 400-80 mg per tablet Take 1 tablet by mouth daily. tacrolimus (PROGRAF) 1 MG capsule Take 10 capsules (10 mg total) by mouth 2 times a day. valGANciclovir (VALCYTE) 450 mg tablet Take 1 tablet (450 mg total) by mouth daily. Scheduled Meds: aspirin 81 mg Oral Daily with breakfast [Held by provider] carvediloL 3.125 mg Oral BID [Held by provider] cyclobenzaprine 10 mg Oral TID fluconazole in sodium chloride (iso-osm) 200 mg Intravenous Q24H [Held by provider] gabapentin 900 mg Oral TID [Held by provider] heparin 5,000 Units Subcutaneous 3 times per day insulin regular 0-12 Units Subcutaneous Q6H Scheduled lidocaine 2 patch Transdermal Daily 0900 melatonin 3 mg Oral Nightly (2100) methocarbamoL 1,000 mg Intravenous Q8H mycophenolate (CELLCEPT) IVPB 500 mg Intravenous Q12H pantoprazole (PROTONIX) IV 40 mg Intravenous BID6 piperacillin-tazobactam (ZOSYN) IV extended interval 4.5 g Intravenous Q8H [Held by provider] polyethylene glycol 17 g Oral Daily 0900 [START ON 04/26/2025] predniSONE 20 mg Oral Daily 0900 [Held by provider] scopolamine 1 patch Transdermal Q72H [Held by provider] senna-docusate 1 tablet Oral BID [Held by provider] simethicone 80 mg Oral PC/HS sulfamethoxazole-trimethoprim 1 tablet Oral Daily 0900 tacrolimus 0.5 mg Sublingual BID traZODone 25 mg Oral Nightly (2100) valGANciclovir 450 mg Oral Daily 0900 Continuous Infusions: sodium chloride 0.9 % 75 mL/hr (04/24/25 0103) PRN Meds: albuterol, dextrose 10% in water OR dextrose 10% in water, HYDROmorphone OR HYDROmorphone, ipratropium-albuteroL, ondansetron, phenoL Allergies[1] Social History Tobacco Use Smoking status: Former Current packs/day: 0.00 Average packs/day: 0.3 packs/day for 1.2 years (0.3 ttl pk-yrs) Types: Cigarettes Start date: 07/22/2014 Quit date: 07/22/2015 Years since quittin.7 Smokeless tobacco: Never Substance Use Topics Alcohol use: Not Currently Family History Problem Relation Age of Onset Liver disease Father Cirrhosis Father REVIEW OF SYSTEMS: Review of systems conducted with patient and pertinent positives are noted in HPI. INTERVAL EVENTS 24 HOUR EVENTS: Extubated HEENT Exam: Normocephalic, atraumatic A/P: - NGT remains to low wall suction. Non bloody - No active issues RESPIRATORY Exam: No acute distress, non-labored respirations, saturating well on 1L Other O2 Device: Patient Vitals for the past 5 hrs: O2 Device 04/25/25 0810 None (Room air) Blood Gas: Lab 04/25/25 0813 04/24/25 1229 04/24/25 0543 04/24/25 0000 04/23/25 1811 PH ARTERIAL 7.39 7.37 7.37 7.34* 7.34* PCO2 ARTERIAL 38 39 40 45 44 PO2 ARTERIAL 133* 109* 107* 102* 107* HCO3 ARTERIAL 24 23 23 24 23 BASE EXCESS ARTERIAL -1.8 -2.5* -2.0 -1.6 -2.1* % HBO2 96.5 97.1 97.3 96.7 96.3 O2 SATURATION ARTERIAL 100 99 100 100 100 - P:F Ratio: No FiO2 recorded within 12 hours. IBW: [place] body weight: 57 kg (125 lb 10.6 oz) Adjusted ideal body weight: 64.4 kg (141 lb 15.3 oz) A/P: #Hx of latent TB s/p tx #Bronchospasm #Supplemental Oxygen Requirement #Acute Hypoxic Respiratory Failure Received Mg 2g, epi pushes, Calcium gluconate during sever bronchospasm phase that lead to respiratory failure. Unable to move chest wall. Turned pale with acrocyanosis - Intubated, sedated - Goal SpO2: >92% - 04/25 Extubated Continue IS Wean O2 as able Pulmonary toilet CARDIOVASCULAR Exam: Regular rate, regular rhythm Vitals: Temp: [97.9 ??F (36.6 ??C)-98.3 ??F (36.8 ??C)] 98.1 ??F (36.7 ??C) Heart Rate: [74-112] 82 Resp: [6-26] 18 BP: (93-125)/(54-84) 102/73 Arterial Line BP: (99-129)/(55-72) 117/64 FiO2: [40 %] 40 % Hemodynamics: No data found. Cardiac Labs: Lab 04/23/25 1130 04/23/25 0745 04/23/25 0426 04/23/25 0223 04/19/25 0633 04/19/25 0227 HSTROP -- -- -- -- -- 15* LACTATE BLOOD ARTERIAL -- 1.6 1.3 -- -- -- LACTATE 1.0 -- 1.3 1.9 < > 1.5 < > = values in this interval not displayed. Prior Cardiac Data: - Echo (02/01/25): LVEF 55-60% - Left ventricle: The cavity size is [...] baseline or with provocation, shows a very velqlojoan-cv-brnu atrial level shunt. There is a shunt which may be intrapulmonary or intracardiac, but cannot be confidently differentiated. - Tricuspid valve: There is mild-moderate regurgitation. - Pulmonary arteries: The peak systolic pressure is 37mm Hg. A/P #Hemorrhagic shock- Resolved - transfused 4 PRBC, 1FFP, 1 cryo, 1 platelets in index case 4 u pRBC after GI bleed MAP>65 - No changes today GASTROINTESTINAL Exam: Soft, distended, tender in the LUQ mainly Drain Output: Output by Drain (mL) 04/23/25 0701 - 04/23/25 1900 04/23/25 1901 - 04/24/25 0700 04/24/25 0701 - 04/24/25 1900 04/24/25 1901 - 04/25/25 0700 04/25/25 0701 - 04/25/25 0835 Drain sub hepatic #1 Abdomen Right;Superior 225 200 100 225 Drain hilar #2 Abdomen Right;Superior 250 200 125 275 Negative Pressure Wound Therapy Abdomen Medial 0 0 0 GI Labs: Lab 04/25/25 0518 04/25/25 0005 04/24/25 1840 04/24/25 1229 04/24/25 0436 04/23/25 1146 04/23/25 1130 04/23/25 0426 04/23/25 0223 ALK PHOS 182* -- -- -- 84 -- 55 63 63 ALT 128* -- -- -- 98* -- 78* 81* 89* AST 100* -- -- -- 77* -- 65* 59* 63* BILIRUBIN TOTAL 4.6* -- -- -- 2.9* -- 2.7* 1.4 1.3 ALBUMIN 2.3* -- -- -- 2.4* -- 2.3* 2.2* 2.0* ALBUMINKID 2.3* 2.3* 2.4* 2.4* 2.4* < > 2.3* 2.2* 2.0* BILIRUBIN DIRECT 3.53* -- -- -- 2.19* -- 2.09* 0.92* 0.80* TOTAL PROTEIN 3.8* -- -- -- 3.9* -- 3.6* 3.4* <3.0* < > = values in this interval not displayed. A/P #alcoholic cirrhosis s/p living donor liver transplant 04/18 #c/f for GI bleed #Melena #Coffee ground emesis #S/p ex-lap, opening of JJ, closure with wound vac - Diet: NPO - NGT to remain - Incision wound vac to remain until POD4 - protonix IV BID - CRYSTAL drains - Hilar drain 275 SS - subhepatic drain 225 SS #Bowel Regimen - held while NPO, 1 bowel movement over last 24 hrs #Nausea - Zofran PRN #GI Prophylaxis - Protonix 40 bid NUTRITION BMI: Body mass index is 27.69 kg/m??. Current Diet: Diet/Nutrition Orders Diet NPO Frequency: Effective Now Number of Occurrences: Until Specified Dietary nutrition supplements Frequency: TID Number of Occurrences: Until Specified Order Questions: Select Supplement: Boost Plus-high calorie high protein supplement Prealbumin: A/P: #Risk for Malnutrition - NPO per primary team - Advance diet as per primary FLUIDS / ELECTROLYTES / RENAL Labs: Lab 04/25/25 0518 04/25/25 0005 04/24/25 1840 04/24/25 1229 04/24/25 0436 SODIUM 142 142 141 140 139 POTASSIUM 4.2 4.5 4.6 4.6 4.9 CHLORIDE 113* 112* 112* 110 108 CO2 26 25 24 24 26 BUN 35* 34* 33* 38* 38* CREATININE 0.80 0.85 0.93 1.21 1.25 GLUCOSE 73 74 100 117* 99 CALCIUM 7.0* 7.3* 7.3* 7.3* 7.6* MAGNESIUM 2.4 2.5 2.4 2.4 2.4 PHOSPHORUS 2.8 3.3 3.5 4.0 5.0* EGFR >90 >90 82 60 58 Admission Wt: Weight: 156 lb (70.8 kg) Current Wt: Weight: 166 lb 6.4 oz (75.5 kg) Intake/Output: Intake/Output Summary (Last 24 hours) at 04/25/2025 0835 Last data filed at 04/25/2025 0629 Gross per 24 hour Intake 811.34 ml Output 3307 ml Net -2495.66 ml UOP: 1,152 mL/24 hrs IVF: sodium chloride 0.9 %, Last Rate: 75 mL/hr (04/24/25 0103) Labs: Lab 04/25/25 0518 04/25/25 0005 04/24/25 1840 04/24/25 1229 04/24/25 0436 CO2 26 25 24 24 26 BUN 35* 34* 33* 38* 38* CREATININE 0.80 0.85 0.93 1.21 1.25 EGFR >90 >90 82 60 58 Lab 04/25/25 0813 04/24/25 1229 04/24/25 0543 04/24/25 0000 04/23/25 1811 PH ARTERIAL 7.39 7.37 7.37 7.34* 7.34* PCO2 ARTERIAL 38 39 40 45 44 PO2 ARTERIAL 133* 109* 107* 102* 107* HCO3 ARTERIAL 24 23 23 24 23 BASE EXCESS ARTERIAL -1.8 -2.5* -2.0 -1.6 -2.1* % HBO2 96.5 97.1 97.3 96.7 96.3 O2 SATURATION ARTERIAL 100 99 100 100 100 A/P: #Fluid Balance I/O last 3 completed shifts: In: 1577.3 [P.O.:400; I.V.:448.4; NG/GT:170; IV Piggyback:558.8] Out: 4202 [Urine:1447; Emesis/NG output:1250; Drains:1125; Stool:380] No intake/output data recorded. NGT 1050 biliogastric #Electrolytes - Manual Electrolyte Replacement - Daily Renal/Mg - no repletion needed today SKIN / MUSCULOSKELETAL Exam: Normal ROM, no rashes A/P: - No active issues HEMATOLOGIC Labs: Lab 04/25/25 0518 04/25/25 0005 04/24/25 1840 04/24/25 1229 04/24/25 0436 WBC 4.9 6.1 7.2 8.8 9.4 HEMATOCRIT 23.6* 24.5* 25.4* 25.9* 28.3* HEMOGLOBIN 8.1* 8.4* 8.9* 9.1* 9.9* PLATELETS 42* 43* 47* 49* 55* Lab 04/25/25 0518 04/24/25 0436 04/24/25 0000 04/23/25 1811 04/23/25 1344 INR 1.1 1.1 1.1 1.1 1.2* Lab 04/18/25 1859 04/18/25 1352 FIBRINOGEN LEVEL 249 130* A/P: #Hemorrhagic shock - transfused 4 PRBC, 1FFP, 1 cryo, 1 platelets, + 2 pRBCs 04/23 4u - q12 cbc #Coagulopathy - Trend INR, TEG PRN active bleeding - Transfuse FFP for R Time >55 or INR >1.7 and bleeding - Transfuse cryoprecipitate for Alpha Angle <55 or low fibrinogen - Transfuse platelets for MA <55 ENDOCRINE Glucose Range: Lab 04/25/25 0518 04/25/25 0517 04/25/25 0005 04/25/25 0004 04/24/25 1840 04/24/25 1838 04/24/25 1229 04/24/25 1225 04/24/25 0438 04/24/25 0436 04/24/25 0012 04/24/25 0000 04/23/25 1811 04/23/25 1809 04/23/25 1146 04/23/25 1130 04/23/25 1129 04/18/25 1859 04/18/25 1700 04/18/25 1600 04/18/25 1506 04/18/25 1410 04/18/25 1339 04/18/25 1256 04/18/25 1211 04/18/25 1116 POC GLU MONITORING DEVICE -- 74 -- 79 -- 97 -- 112* 103* -- 118* -- -- 145* -- -- 159* < > ---- -- -- -- -- -- -- POCGLUART -- -- -- -- -- -- -- -- -- -- -- -- -- -- -- -- -- -- 136* 133* 144* 158* 124* 102* 126* 116* GLUCOSE 73 -- 74 -- 100 -- 117* -- -- 99 -- 118* 154* -- 159* < > -- < > -- -- -- -- ---- -- -- < > = values in this interval not displayed. Hgb A1c: Lab Results Component Value Date HGBA1C 4.4 04/11/2025 Insulin Regimen: Insulin Orders Dose Frequency Start End insulin regular (HumuLIN R/NovoLIN R) injection Soln 0-12 Units 0-12 Units Every 6 hours scheduled 04/19/2025 -- Admin Instructions: HIGH ALERT MEDICATION Route: Subcutaneous A/P #Hyperglycemia - HDSSI for FSBG >180 - Daily Renal and FSBG q6h - no correction needed over last 24 hours INFECTIOUS DISEASE Tmax: Temp (24hrs), Av.1 ??F (36.7 ??C), Min:97.9 ??F (36.6 ??C), Max:98.3 ??F (36.8 ??C) WBC Trend: Lab 04/25/25 0518 04/25/25 0005 04/24/25 1840 04/24/25 1229 04/24/25 0436 WBC 4.9 6.1 7.2 8.8 9.4 UA: No results found for: COLORU , CLARITYU , PH , PROTEINUA , PHUR , LABSPEC , GLUCOSEU , BLOODU , LEUKOCYTESUR , NITRITE , BILIRUBINUR , UROBILINOGEN , RBCUA , WBCUA , BACTERIA , AMORPHOUS , CRYSTAL , CASTS Blood Cultures: Lab Results Component Value Date LABGRAM Rare Polymorphonuclear Leukocytes Seen 04/23/2025 LABGRAM No Organisms Seen; 04/23/2025 Micro Summary: Microbiology Results Date and Time Order Name Sensitivity Status Organisms Specimen ID Source 04/23/2025 9:53 AM Routine Culture plus Stain (Surgical Swab) Preliminary 1 Abdomen 04/23/2025 9:53 AM Fungus culture (Surgical Swab) Preliminary 1 Abdomen 04/23/2025 9:53 AM Anaerobic culture (Surgical Swab) Preliminary 1 Abdomen Current Abx: Current Anti-Infectives Dose Frequency Start End fluconazole (DIFLUCAN) 200 mg in iso-osm sodium chloride 100 mL 200 mg Every 24 hours 04/23/2025 -- Admin Instructions: DO NOT REFRIGERATE. Route: Intravenous piperacillin-tazobactam (ZOSYN) 4.5 g in sodium chloride 0.9 % 100 mL [id number] 4.5 g Every 8 hours 04/23/2025 -- Admin Instructions: Use [id number] Adapter - Mix Thoroughly Before Administration Route: Intravenous Linked Group 1: Placed in Followed by Linked Group sulfamethoxazole-trimethoprim (BACTRIM) 400-80 mg per tablet 1 tablet 1 tablet Daily 04/20/2025 -- Route: Oral valGANciclovir (VALCYTE) tablet 450 mg 450 mg Daily 04/21/2025 -- Admin Instructions: LEVEL 2 HAZARDOUS MEDICATION Route: Oral A/P: #Antibiotics - Mary-op abx: Diflucan for take back ppx, Zosyn - no leukocytosis, afebrile, no other signs of infection #Immunosuppression - Prednisone taper - [place] BID - MMF #Transplant ppx - Bactrim and Valcyte NEUROLOGIC Exam: Alert, oriented, no focal signs, moving all four extremities prior to intubation and seadtion GCS: [place] Coma Scale Score: 15 (Eye Openin, Best Verbal Response: 5, Best Motor Response: 6) No data found. A/P: #Sedation/Analgesia - Dilaudid (11x doses in last 24 hours) - [facility] Plan for tylenol, Robaxin, PRN Dilaudid once extubated PSYCHIATRIC Exam: Intubated and sedation; unable to assess CAM: Overall CAM-ICU : No Delirium RASS: [place] Agitation Sedation Scale: 0 A/P: #Agitation - Seroquel PRN ICU CHECKLIST Diet: Diet/Nutrition Orders Diet NPO Frequency: Effective Now Number of Occurrences: Until Specified Dietary nutrition supplements Frequency: TID Number of Occurrences: Until Specified Order Questions: Select Supplement: Boost Plus-high calorie high protein supplement Bowel Reg: Held GI PPx: Protonix IV DVT PPx: Held --> Discuss with primary Current Anticoagulation (Only) aspirin chewable tablet 81 mg heparin (porcine) injection 5,000 Units ([Held by provider] since 04/23/2025 12:53 AM) LDA: - Urinary Catheter: Ybarra - Reason: Adequate I/O-- >Keep - Central Line: Yes - Reason: Hemodynamic instability, Hemodynamic monitoring, and Medications requiring central administration --> keep - Arterial Line: Yes - Reason: Hemodynamic instability and Hemodynamic monitoring PT/OT: Consulted - PT Recs: Recommendation: Anticipate no further PT needed after discharge (pending further mobility assessment) Equipment Recommended: Defer until further assessment - OT Recs: Recommendation: Home OT Equipment Recommendations: Tub Transfer Bench Tub Transfer Bench Justification: Patient is at risk to fall in shower environment, Patient has decreased activity tolerance requiring use of seat during bathing tasks - GARNISHMENT SPECIALIST Recs: Dispo: Remain in SICU Code Status: Full Code Signed: LYNN GAGE 04/25/2025, 8:35 AM ICU ATTENDING PROGRESS NOTE: I have examined Mindy Wade, reviewed the events of the previous 24 hours, reviewed, confirmed and amended the resident's data, history and physical exam as needed. The case has been discussed withthe Transplant team. I note the following in my assessment and will implement this plan of coordinated critical care management as follows: This patient was seen by the SICU resident team, nurses, pharmacist, and respiratory therapist. I have personally seen, examined, and discussed this patient with the critical care team on 04/25/2025. My assessment is noted below, and the multidisciplinary recommendations have been discussed with theTransplant team. Mindy Waed remains in the ICU to address deficits in multiple systems. Each system was discussedon rounds and the details are listed in the resident note above. Adjustments to the note were made while rounds were performed to include changes agreed upon by the multidisciplinary team. My changeswere added to the resident note. My assessment reveals: 35 year old female with complicated PMH admitted to ICU with concerns for hemorrhagic shock. PMH TB HCV Admittedto ICU on 04/18/2025 for hypotesnion this is 4 days post OLT HEENT: No Acute Issues RESPIRATORY: Atelectasis/pulmonary collapse Hypoxia P:F: 267.5 FiO2: [40 %] 40 % On 1 L Extubated yesterday CARDIOVASCULAR: No acute issues NUTRITION: No acute issues Await diet per primary GASTROINTESTINAL: S/p OLT Acute GI bleed Transfused Resuscitated Re-exploration complete FLUIDS / ELECTROLYTES: No acute issues RENAL: No acute issues SKIN/MUSCULOSKELETAL: NIRAV HEMATOLOGIC: Acute post hemorrhagic anemia Transfused Resuscitated Stabilized s/p exploration ENDOCRINE: No acute issues INFECTIOUS DISEASE: Periop abx and immunosuppression per primary NEUROLOGIC: No acute issues PSYCHIATRIC, PAIN, SEDATION: Pain Management Add binder On robaxin Having incisional pain INJURY / DISEASE SPECIFIC NEEDS: No acute issues ACTIVE LINES; Patient Lines/Drains/Airways Status Active Epidural Line / PICC Line / PIV Line / ART Line / Line / CVC Line Name Placement date Placement time Site Days PICC Double Lumen 04/21/25 Right Brachial 04/21/25 0839 Brachial 4 Arterial Line 04/23/25 Right Femoral 04/23/25 0453 Femoral 2 CVC Double Lumen 04/23/25 Left Femoral 04/23/25 0516 Femoral 2 Central Line? Yes - Reason: Hemodynamic monitoring ACTIVE /DRAINS: Urinary Catheter? Ybarra - Reason: Adequate I/O DVT Prophylaxis: Subcutaneous Heparin GI Prophylaxis: PPI DISPOSITION: Remain in ICU Total critical care time spent caring for this patient over the past 24 hours, including direct patient contact, management of life support systems, review of data (i.e.: imaging and lab), discussionwith team members, and excluding time spent on procedures: 33 minutes Raf Talley MD 04/25/2025 8:32 AM [1] No Known Drug Allergies or Adverse Reactions * Elia Kim RRT - 04/24/2025 8:38 AM EST Patient extubated to 3 LPM on Date:04/24/2025 at Time: 0838. * Aixa Keith MD - 04/24/2025 6:43 AM EST Transplant Surgery Progress Note Name: Mindy Wade CSN: [id number] Date: 04/24/2025 6:43 AM OR Date: 04/18/2025 Subjective Intubated yesterday for profound hypoxia and GI blood loss Satting well and passed SBT this morning Taken back to the OR for abdominal exploration on 04/23 without a source of GI bleeding identified Received 4 units pRBC total with appropriate response of Hgb; Slightly downtrending but stable On Propofol and Fentanyl Objective Vitals: Temp: [97 ??F (36.1 ??C)-98.9 ??F (37.2 ??C)] 98.9 ??F (37.2 ??C) Heart Rate: [78-113] 104 Resp: [6-18] 8 BP: (91-130)/(55-96) 93/68 Arterial Line BP: (85-141)/(47-83) 100/60 FiO2: [39 %-100 %] 40 % I/O: Intake/Output Summary (Last 24 hours) at 04/24/2025 0644 Last data filed at 04/24/2025 0103 Gross per 24 hour Intake 6095.15 ml Output 3 ml Net 4072.15 ml Physical Exam: Constitutional: Ill appearing, lying in bed intubated and sedated HEENT: Oropharynx with moist mucous membranes, nose and ears atraumatic, anicteric sclerae. ETT andOG tubes in place Respiratory: Intubated and mechanically ventilated. Cardiovascular: Tachycardic Abdomen: Soft, appropriately tender. Incision woundvac in place. Extremities: No gross deformities, acyanotic, skin cool and dry. Neuro: Alert. Follows commands while intubated. Psych: Affect appropriate for situation. Labs: Recent Labs 04/23/25 1811 04/24/25 0000 04/24/25 0436 WBC 9.1 10.5 9.4 HGB 11.1* 10.4* 9.9* HCT 31.4* 29.6* 28.3* PLT 63* 65* 55* Recent Labs 04/23/25 1811 04/24/25 0000 04/24/25 0436 NA 138 138 139 K 5.4* 5.3 4.9 CL 107 108 108 CO2 24 26 26 BUN 35* 37* 38* CREATININE 1.11 1.25 1.25 GLUCOSE 154* 118* 99 CALCIUM 7.9* 7.9* 7.6* MG 2.3 2.4 2.4 PHOS 5.3* 5.4* 5.0* Recent Labs 04/22/25 2112 04/23/25 0026 04/23/25 1129 04/23/25 1809 04/24/25 0012 04/24/25 0438 POCGMD 266* 241* 159* 145* 118* 103* Recent Labs 04/23/25 0426 04/23/25 1130 04/23/25 1146 04/24/25 0000 04/24/25 0436 AST 59* 65* -- -- 77* ALT 81* 78* -- -- 98* BILITOT 1.4 2.7* -- -- 2.9* BILIDIRECT 0.92* 2.09* -- -- 2.19* ALKPHOS 63 55 -- -- 84 ALBUMIN 2.2* 2.2* 2.3* 2.3* < > 2.5* 2.4* 2.4* < > = values in this interval not displayed. Recent Labs 04/23/25 1811 04/24/25 0000 04/24/25 0436 INR 1.1 1.1 1.1 PROTIME 15.1 14.9 14.7 Imaging: US Abdomen Limited Result Date: 04/23/2025 EXAM: US ABDOMEN LIMITED EXAM: US DUPLEX [id number] COMPLETE INDICATION: Liver Transplant COMPARISON: None TECHNIQUE: Grayscale imaging was performed with attention to the right upper quadrant; color and spectral (duplex) Doppler analysis of the hepatic vasculature was also performed. FINDINGS: Liver: Normal grayscale appearance of the right lobe liver allograft. No focal hepatic lesions or perihepatic collections. Biliary/CBD: 4 mm. No intra or extrahepatic ductal dilatation. Gallbladder: Surgically absent.. Pancreas: Obscured by overlying bowel gas. Right kidney: 11.1 cm in length. Normal parenchymal echogenicity. No hydronephrosis. Other: Trace free fluid. Right pleural effusion DOPPLER: Hepatic Veins: Duplex evaluation of the hepatic vasculature demonstrates normal flow in theright and middle hepatic veins. Portal Veins: The main and intrahepatic portal veins demonstrate hepatopetal flow. Hepatic Arteries: Main and intra- hepatic arteries demonstrate normal waveforms. Resistive Indices Main hepatic artery: 0.65 Right hepatic artery: 0.62-0.66 IMPRESSION: RIGHT UPPER QUADRANT Normal grayscale appearance of the right lobe liver allograft. Trace free fluid and right pleural effusion is within expected recent postsurgical limits. LIVER DOPPLER Patent hepatic vasculature. Report Verified by: Seble Crawford MD at 04/23/2025 2:30 PM EDT US Duplex [id number] Comp Result Date: 04/23/2025 EXAM: US ABDOMEN LIMITED EXAM: US DUPLEX [id number] COMPLETE INDICATION: Liver Transplant COMPARISON: None TECHNIQUE: Grayscale imaging was performed with attention to the right upper quadrant; color and spectral (duplex) Doppler analysis of the hepatic vasculature was also performed. FINDINGS: Liver: Normal grayscale appearance of the right lobe liver allograft. No focal hepatic lesions or perihepatic collections. Biliary/CBD: 4 mm. No intra or extrahepatic ductal dilatation. Gallbladder: Surgically absent.. Pancreas: Obscured by overlying bowel gas. Right kidney: 11.1 cm in length. Normal parenchymal echogenicity. No hydronephrosis. Other: Trace free fluid. Right pleural effusion DOPPLER: Hepatic Veins: Duplex evaluation of the hepatic vasculature demonstrates normal flow in theright and middle hepatic veins. Portal Veins: The main and intrahepatic portal veins demonstrate hepatopetal flow. Hepatic Arteries: Main and intra- hepatic arteries demonstrate normal waveforms. Resistive Indices Main hepatic artery: 0.65 Right hepatic artery: 0.62-0.66 IMPRESSION: RIGHT UPPER QUADRANT Normal grayscale appearance of the right lobe liver allograft. Trace free fluid and right pleural effusion is within expected recent postsurgical limits. LIVER DOPPLER Patent hepatic vasculature. Report Verified by: Seble Crawford MD at 04/23/2025 2:30 PM EDT X-ray Portable Chest Result Date: 04/23/2025 EXAM: XR PORTABLE CHEST INDICATION: Dyspnea, unspecified TECHNIQUE: 1 view of the chest. COMPARISON: 3 hours prior FINDINGS: Medical Devices: Endotracheal tube tip projects over the mid to lower thoracic trachea. Interval advancement of enteric tube which courses below diaphragm, tip not visualized. External defibrillator pads. Surgical drain projects over the right upper quadrant. Right upper extremity PICC tip projects over the cavoatrial junction. Heart and Mediastinum: Unchanged. Lungs and Pleura: Improved aeration of the left lung. No significant change in mild bibasilar opacities. No sizable pleural effusion. No pneumothorax. Bones and Soft tissues: Unchanged. IMPRESSION: 1. Improved aeration of the left lung, otherwise no significant change in bibasilar opacities. 2. Interval advancement of enteric feeding tube. Report Verified by: Anuj Chavarria DO at 04/23/2025 1:32 PM EDT X-ray Portable Chest Result Date: 04/23/2025 EXAM: XR PORTABLE CHEST INDICATION: Other - Must Specify in Comments; post arrest TECHNIQUE: 1 viewof the chest. COMPARISON: 04/23/2025 FINDINGS: Medical Devices: Endotracheal tube tip projects over the mid to lower trachea. Enteric tube tip projects over the distal esophagus. External defibrillator pads. Surgical drain projects over the right upper quadrant. Right upper extremity PICC tip projects over the cavoatrial junction. Heart and Mediastinum: Unchanged. Lungs and Pleura: No significant change in mild bibasilar atelectasis. No large pleural effusions. No pneumothorax. Bones and Soft tis sues: Unchanged. IMPRESSION: 1. Retracted enteric tube with tip projecting over the distal esophagus. 2. Otherwise, no significant interval change. Report Verified by: Anuj Chavarria DO at 04/23/2025 11:08 AM EDT XR Portable Feeding Tube Check Result Date: 04/23/2025 EXAM: XR PORTABLE FEEDING TUBE CHECK INDICATION: NGT placed TECHNIQUE: AP radiograph of the upper abdomen COMPARISON: 04/18/2025 FINDINGS: Postsurgical changes in the right upper quadrant related to recent liver transplant. Enteric tube tip overlies the gastric body with the sidehole at or just below the expected location of the gastroesophageal junction. There is mild gaseous dilation of the stomach and partially imaged and large bowel. IMPRESSION: Enteric tube tip overlies the gastric body with the sidehole at or just below the expected location of the gastroesophageal junction. Mild gaseous distention of the stomach and small bowel partially imaged could represent ileus Report Verified by: Seble Crawford MD at 04/23/2025 9:50 AMEDT Current Medications: Scheduled Meds: [Held by provider] aspirin 81 mg Oral Daily with breakfast [Held by provider] carvediloL 3.125 mg Oral BID [Held by provider] cyclobenzaprine 10 mg Oral TID fluconazole in sodium chloride (iso-osm) 200 mg Intravenous Q24H [Held by provider] gabapentin 900 mg Oral TID [Held by provider] heparin 5,000 Units Subcutaneous 3 times per day insulin regular 0-12 Units Subcutaneous Q6H Scheduled ipratropium-albuteroL 3 mL Nebulization RT Q4HRS lidocaine 1 patch Transdermal Daily 0900 mycophenolate (CELLCEPT) IVPB 500 mg Intravenous Q12H pantoprazole (PROTONIX) IV 40 mg Intravenous BID6 piperacillin-tazobactam (ZOSYN) IV extended interval 4.5 g Intravenous Q8H [Held by provider] polyethylene glycol 17 g Oral Daily 0900 predniSONE 40 mg Oral Once Followed by predniSONE 30 mg Oral Once Followed by [START ON 04/25/2025] predniSONE 25 mg Oral Once Followed by [START ON 04/26/2025] predniSONE 20 mg Oral Daily 0900 [Held by provider] scopolamine 1 patch Transdermal Q72H [Held by provider] senna-docusate 1 tablet Oral BID [Held by provider] simethicone 80 mg Oral PC/HS sodium chloride 4 mL Nebulization RT BID sulfamethoxazole-trimethoprim 1 tablet Oral Daily 0900 tacrolimus 0.5 mg Sublingual BID valGANciclovir 450 mg Oral Daily 0900 Continuous Infusions: EPINEPHrine (ADRENALIN) 10 mg in sodium chloride 0.9 % 250 mL infusion Stopped (04/23/25 0950) fentanyl (SUBLIMAZE) IV infusion 125 mcg/hr (04/23/25 1851) propofol 30 mcg/kg/min (04/23/25 1800) sodium chloride 0.9 % 75 mL/hr (04/24/25 0103) PRN Meds: albuterol, dextrose 10% in water OR dextrose 10% in water, fentanyl (SUBLIMAZE) IV infusion AND fentaNYL, HYDROmorphone OR HYDROmorphone, ipratropium-albuteroL, ondansetron, phenoL Assessment/Plan Mindy Wade is a 35 y.o. 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 Plans Today: - Continue incisional WoundVac (70mmHg) - Remain on antibiotics until Cx are final - Keep NGT; NPO ETOH/HCV s/p OLT 04/18 - POD1 Liver US normal - US 04/21 stable - Liver enzymes stable - Drains to stay in place for now. Reinforce with ostomy GI bleeding Acute blood loss anemia - Began having melanic stools on 04/23 - 5u pRBC, 2FFP, 2 cryo, 1 platelet - GI performed small bowel enteroscopy on 04/23; No active extravasation - Taken back to the OR on 04/23 without obvious source of bleeding - Monitor CBCs - NGT in place Resp: Acute Hypoxic Respiratory Failure - Intubated, sedated - Management per SICU - Passed SBT today Skin/MSK: NIRAV - PT/OT when able ID: Afebrile - Perioperative abx completed - Fluconazole ppx for 1 month - Bactrim and valcyte Immunosuppression: - Maintenance: - Cellcept 500 mg BID - Prednisone Taper - Tacrolimus: 0.5 BID Endocrine: - Home medications: none - HDSSI PPX: CARIE 5000 units TID (HELD), SCD, PPI Dispo: SICU AIXA KEITH MD Transplant Surgery Cosigned by Alejandra Wilson MD at 04/24/2025 12:32 PM EST Associated attestation - Alejandra Wilson MD - 04/24/2025 12:32 PM EST This patient was seen and examined by the STEVEN/Resident team on 04/24/2025. I have discussed the patient's care with the team. Immunosuppression reviewed and discussed with multidisciplinary team. I have personally seen and examined this patient on 04/24/2025. Alejandra Wilson MD PhD Transplant Surgery * Celio Espinosa, LIVESTOCK BREEDER - 04/24/2025 5:56 AM EST RESPIRATORY THERAPY MECHANICAL VENTILATION WEANING PROTOCOL NOTE Mindy Wade is a 35 y.o. y.o. female 1990 PRE-TRIAL PATIENT ASSESSMENT COMPLETED AT 0507 Patient Criteria for Spontaneous Breathing Trial (SBT) PARAMETER CRITERIA FOR WEANING MEETS CRITERIA FiO2 < 50% Yes PEEP < 8 Yes Total RR < 30 bpm Yes PCV Mode No Yes Vt (Spontaneous) > 200 mL Yes ABG (pH and BE) Ph >7.32 and BE>-6 Yes MD Order No SBT No Yes Amanda Coma Scale > 8 Yes Lab Results Component Value Date PHART 7.37 04/24/2025 PCO2 40 04/24/2025 PO2ART 107 (H) 04/24/2025 [id number] 23 04/24/2025 BEART -2.0 04/24/2025 [id number] 97.3 04/24/2025 [id number] 100 04/24/2025 Based on this SBT assessment and ICU Ventilator Weaning Protocol, this patient is being placed on Spontaneous Breathing Trial (SBT) at this time. SBT intiated at 0507 Ventilator Settings: CPAP - 8 cmH2O, PS - 0 cmH2O RR is less than or equal to 30, HR < 140 or <20% change from baseline, Systolic BP < 180 or > 90, SaO2 > 90% and patient is in no apparent distress; therefore patient is being left on SBT for up to 30 minutes. SBT concluded at 0541 Weaning Parameters/VS's at conclusion of SBT: Ve 8.32 L RR: 16 b/m VT: 552 mL (average VT = VE/RR) RSBI: 29 (RR/VT in liters) ETCO2: cmH2O SPO2: 95 % Patient did tolerate SBT for full 30 minutes with acceptable weaning parameters and vital signs andshowed no signs of distress. If patient did not tolerate, please comment with duration and reason here: COMMENTS: * Drea Campbell MD - 04/23/2025 8:43 AM EDT Brief Update Note Patient continues to remain critically ill in the SICU. has been updated by myself. Patientwas scoped at bedside (EGD) emergently by GI this morning. No evidence of active bleeding however several blood clots seen in duodenum. EGD unable to assess the site of anastomosis. SICU team augmented ongoing sedation for the procedure with pushes of prop (60) and fentanyl (50) in addition to the drip and fentanyl pushes for procedure. Epi running at 0.5. Patient tolerated the procedure well. Nohypoxia or hypotension. No pushes of pressors needed. Transplant surgery to obtain CT A/P GI protocol however the patient continued to downtrend in hemoglobin despite ongoing resuscitation. Plan for emergent surgery. DREA CAMPBELL MD 8:49 AM 04/23/2025 Cosigned by Jaydon Brandt MD at 04/23/2025 2:54 PM EDT Associated attestation - Jaydon Brandt MD - 04/23/2025 2:54 PM EDT ICU ATTENDING NOTE: This patient was seen by the Surgical ICU team and the Transplant team; I have personally seen thispatient, examined this patient, and my assessment and plan for coordinated critical care managementreveals: I note the following interval events: 35 y.o. 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 She has been ETOH free for several years. She presents today for living donor liver transplant. Admitted to SICU post op. Transferred to [facility] 2 days ago and had a rapid response called. Emergently transferred to sicu. Emergently intubated, central line, A line, code event. Hospital course 04/18/25 OLT living donor 04/23/25 Emergently transferred to SICU, intubated, code event. ROSC. EGD at bedside the UGIB, no active bleeding. Events over 24 hours Transferred emergently to sicu for hemorrhagic shock, UGIB. 4 RBC, 1 FFP, 1 plat, 1 cryo, calcium Plan for today Cont blood product resuscitation Trend labs. Hold oral non critical meds CXR OR for revision of JJ HEENT: No Acute Issues RESPIRATORY: Atelectasis/pulmonary collapse Hypoxia Respiratory acidosis Respiratory failure with hypercarbia Vent Mode: VC-AC/PRVC FiO2: [60 %-100 %] 60 % S RR: [16] 16 S VT: [450 mL] 450 mL PEEP/CPAP: [10 cm H20] 10 cm H20 Lab Results Component Value Date PHART 7.14 (LL) 04/23/2025 PCO2 61 (H) 04/23/2025 PO2ART 122 (H) 04/23/2025 [id number] 19 (L) 04/23/2025 BEART -8.3 (L) 04/23/2025 [id number] 96.2 04/23/2025 [id number] 98 04/23/2025 P:F ratio = 203 Cont mechanical ventilation Cont PEEP 10, wean FiO2. CARDIOVASCULAR: Hypertension, unspecified Shock, Hypovolemic - hold home carvedilol, - on epinephrine gtt with concern for bronchospasm. Will stop at noon today. Hemorrhage likely from gI source, cont blood product resuscitation. NUTRITION: Signs of malnutrition by BMI or weight loss on admission? No No acute issues GASTROINTESTINAL: Cirrhosis, alcoholic Upper GIB. - s/p living donor liver transplant 04/18 - steroid taper, cellcept, tacro per TXP - CTA likely today. - EGD 04/23 with blood in duodenum but no active bleeding. - PPI BID. FLUIDS / ELECTROLYTES: Hypocalcemia - trend labs - replace electrolytes as indicated No need to shift at this time. Cont NS @ 75 cc/hr. RENAL: Acute kidney injury Metabolic acidosis - trend labs and UOP. Lactate normal. Will trend ABG, may need bicarb or if worsens, CRRt. SKIN/MUSCULOSKELETAL: No acute issues HEMATOLOGIC: Acute post hemorrhagic anemia Coagulopathy, unspecified Thrombocytopenia, unspecified - trend labs - transfuse as indicated per transplant - Trend Hb, INR, TEG - MA low on TEG, received plat. ENDOCRINE: Hyperglycemia - on insulin gtt. Currently paused. Will stop and start HDSSI. INFECTIOUS DISEASE: Leukocytosis - leukocytosis reactive. No signs of infection. NEUROLOGIC: No acute issues PSYCHIATRIC, PAIN, SEDATION: Pain Management - sedation protocol with prop and fent. ACTIVE LINES: Patient Lines/Drains/Airways Status Active Epidural Line / PICC Line / PIV Line / ART Line / Line / CVC Line Name Placement date Placement time Site Days PICC Double Lumen 04/21/25 Right Brachial 04/21/25 0839 Brachial 1 Arterial Line 04/23/25 Right Femoral 04/23/25 0453 Femoral less than 1 CVC Double Lumen 04/23/25 Left Femoral 04/23/25 0516 Femoral less than 1 Central Line? Yes - Reason: Hemodynamic monitoring Arterial line? Yes ACTIVE DRAINS: Urinary Catheter? Ybarra - Reason: Adequate I/O DVT Prophylaxis: Contraindicated bleeding. GI Prophylaxis: PPI DISPOSITION: SICU I saw and examined the patient and discussed the case with the resident and agree with the findingsand plan as documented in the resident's note. Total time delivering critical care for this patient including direction of initial assessment, evaluation, development of a plan, discussion with consultants, and family but excluding time spent performing any associated procedures was 33 minutes on 04/23/2025. Jaydon Brandt MD Section of General Surgery Divisions of Trauma, Acute Care Surgery, and Surgical Critical Care [facility] Academic Office [phone] For Transfers, call [phone] * Sergey Altman MD - 04/23/2025 5:52 AM EDT Transplant Surgery Progress Note Name: Mindy Wade CSN: [id number] Date: 04/23/2025 7:59 AM OR Date: 04/18/2025 Subjective Became increasingly lethargic and hypotensive on the floor with new melena. Transferred to SICU Repeat Hgb 5.5. Lined in SICU. Experienced profound bronchospasm with severe hypoxia requiring push-dose epi, solumedrol, IV mag, followed by epi gtt for bronchospasm following emergent intubation Ultimately received 5 reds, 2 FFP, 2 cryo, 1 platelets GI consulted and performed bedside EGD with evidence of old blood in duo without evidence of activeextravasation. Objective Vitals: Temp: [97.1 ??F (36.2 ??C)-98.5 ??F (36.9 ??C)] 97.1 ??F (36.2 ??C) Heart Rate: [71-116] 116 Resp: [11-19] 13 BP: (81-137)/(47-88) 81/60 FiO2: [60 %-100 %] 60 % I/O: Physical Exam: Constitutional: Ill appearing, lying in bed intubated and sedated HEENT: Oropharynx with moist mucous membranes, nose and ears atraumatic, anicteric sclerae. ETT andOG tubes in place Respiratory: Intubated and mechanically ventilated. 50% FiO2/PEEP 10 Cardiovascular: Tachycardic, MAPs low 70s on epi 2 mcg/min Abdomen: Wound is c/d/i. Abdomen is soft, mildly-distended, moderate tenderness. No rebound or guarding. Melanous stools. Extremities: No gross deformities, acyanotic, skin cool and dry. Neuro: No gross focal CN deficits, alert, oriented, responding to questions appropriately. Psych: Affect appropriate for situation. Labs: Recent Labs 04/23/25 0003 04/23/2522204/23/25425 WBC 7.0 7.7 11.4* HGB 5.5* 8.6* 9.9* 9.6* HCT 16.1* 24.9* 28.4* 30.0* PLT 85* 60* 56* Recent Labs 04/22/25230304/23/2522204/23/25425 NA 133 134 137 K 4.8 4.6 4.6 CL 106 107 109 CO2 23 22 23 BUN 40* 39* 39* CREATININE 1.34* 1.28 1.32* GLUCOSE 279* 140* 152* CALCIUM 6.8* 6.3* 8.1* MG 2.0 1.9 2.4 PHOS 4.4 5.0* 7.0* Recent Labs 04/21/25 2319 04/22/25 0558 04/22/25 1205 04/22/25 1633 04/22/25 2112 04/23/25 0026 POCGMD 109* 80 114* 171* 266* 241* Recent Labs 04/22/25 0606 04/22/25 23004/23/2522204/23/25 0426 AST 116* -- 63* 59* ALT 144* -- 89* 81* BILITOT 1.9* -- 1.3 1.4 BILIDIRECT 1.11* -- 0.80* 0.92* ALKPHOS 83 -- 63 63 ALBUMIN 3.1* 3.1* < > 2.0* 2.0* 2.2* 2.2* < > = values in this interval not displayed. Recent Labs 04/21/25 0900 04/23/25 0426 INR 1.4* 1.4* PROTIME 17.8* 18.1* Imaging: X-ray Portable Chest Result Date: 04/23/2025 EXAM: XR PORTABLE CHEST INDICATION: ET Tube placement TECHNIQUE: 1 view of the chest. COMPARISON: April 19, 2025 FINDINGS: Medical Devices: * Endotracheal tube projects over the trachea with the tip approximately 5 cm above the tata. * NG tube is seen crossing midline diaphragm, distal tip is not visualized. * External pacer/defibrillator pads. * Surgical drain projects over the right upper abdomen. * Tip of the right approximate approach PICC line projects over the SVC. Heart and Mediastinum: Cardiomediastinal silhouette is within normal limits. Lungs and Pleura: Mild basilar atelectasis. Lungs are otherwise clear. No pleural effusions or pneumothorax. Bones and soft tissues: No acute a bnormalities. IMPRESSION: No acute cardiopulmonary abnormality. Report Verified by: Vipul Gannon MD at 04/23/2025 4:18 AM EDT Current Medications: Scheduled Meds: acetaminophen 975 mg Oral Q8H [Held by provider] aspirin 81 mg Oral Daily with breakfast [Held by provider] carvediloL 3.125 mg Oral BID [Held by provider] cyclobenzaprine 10 mg Oral TID fluconazole 200 mg Oral Daily 0900 [Held by provider] gabapentin 900 mg Oral TID [Held by provider] heparin 5,000 Units Subcutaneous 3 times per day insulin regular 0-12 Units Subcutaneous Q6H Scheduled ipratropium-albuteroL 3 mL Nebulization RT Q4HRS ipratropium-albuteroL lidocaine 1 patch Transdermal Daily 0900 mycophenolate 500 mg Oral BID norepinephrine pantoprazole (PROTONIX) IV 40 mg Intravenous BID6 [Held by provider] polyethylene glycol 17 g Oral Daily 0900 predniSONE 40 mg Oral Once Followed by [START ON 04/24/2025] predniSONE 30 mg Oral Once Followed by [START ON 04/25/2025] predniSONE 25 mg Oral Once Followed by [START ON 04/26/2025] predniSONE 20 mg Oral Daily 0900 [Held by provider] scopolamine 1 patch Transdermal Q72H [Held by provider] senna-docusate 1 tablet Oral BID [Held by provider] simethicone 80 mg Oral PC/HS sodium chloride 15 mL Nebulization RT BID sulfamethoxazole-trimethoprim 1 tablet Oral Daily 899 tacrolimus 0.5 mg Oral BID valGANciclovir 450 mg Oral Daily 09 Continuous Infusions: EPINEPHrine (ADRENALIN) 10 mg in sodium chloride 0.9 % 250 mL infusion 2 mcg/min (04/23/25 0330) fentanyl (SUBLIMAZE) IV infusion 50 mcg/hr (04/23/25 0320) propofol 20 mcg/kg/min (04/23/25316) sodium chloride 0.9 % PRN Meds: albuterol, dextrose 10% in water OR dextrose 10% in water, fentanyl (SUBLIMAZE) IV infusion AND fentaNYL, HYDROmorphone OR HYDROmorphone, ipratropium-albuteroL, ipratropium-albuteroL, norepinephrine, ondansetron, oxyCODONE OR oxyCODONE, phenoL Assessment/Plan Mindy Wade is a 35 y.o. 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 HEENT: NIRAV Resp: Acute Hypoxic Respiratory Failure - Intubated, sedated - On epi gtt for bronchospasm - Management per SICU CV: - MTP for GI bleed - Teg based resuscitation per SICU - Hold coreg Nutrition/GI: UGI bleed - S/p 5u pRBC, 2FFP, 2 cryo, 1 platelet - Bedside EGD with GI without active extravasation - Resuscitation as above per SICU - CT GI-bleed protocol when stable ETOH/HCV s/p OLT 04/18 - POD1 Liver US normal - US 04/21 stable - liver enzymes stable. - drains to stay in place for now. Reinforce with ostomy Skin/MSK: NIRAV - PT/OT when able Heme: Acute Blood Loss Anemia - S/p 5u pRBC, 2FFP, 2 cryo, 1 platelet - Resuscitation per SICU ID: Afebrile - Perioperative abx completed - Fluconazole ppx for 1 month - Bactrim and valcyte Immunosuppression: - Maintenance: - Cellcept 500 mg BID - Prednisone Taper - Tacrolimus: 0.5 BID Endocrine: - Home medications: none - HDSSI Neuro: - Sedation with propofol and fentanyl per SICU PPX: CARIE 5000 units TID (HELD), SCD, PPI Dispo: SICU SERGEY ALTMAN MD Transplant Surgery Cosigned by Alejandra Wilson MD at 04/23/2025 4:46 PM EDT Associated attestation - Alejandra Wilson MD - 04/23/2025 4:46 PM EDT This patient was seen and examined by the STEVEN/Resident team on 04/23/2025. I have discussed the patient's care with the team. Immunosuppression reviewed and discussed with multidisciplinary team. I have personally seen and examined this patient on 04/23/2025. OR for emergent exploration for GI bleed unable to access with endoscopy on [facility] [place] Plan discussed in person with Alejandra Wilson MD PhD Transplant Surgery ' * Drea Campbell MD - 04/23/2025 4:17 AM EDT Brief Update Note Patient was transferred from the floor after rapid response was called for ongoing hypotension, somnolence, decrease in hemoglobin. Upon arrival into the SICU the patient was placed on the monitors appropriately. I was performing an arterial line in the femoral region. Patient was also receiving packed red blood cell transfusion with some improvement in her blood pressure. The patient later developed acute onset shortness of breath that rapidly progressed to difficulty breathing and inability for her to actively move her chest wall. Patient was placed on a nonrebreather mask. Breathing treatment was given. Epinephrine pushes given. patient was intubated emergently and a central line was placed. was updated in the family waiting room. DREA CAMPBELL MD 4:43 AM 04/23/2025 Cosigned by Manuela Lang MD at 04/23/2025 4:46 AM EDT Associated attestation - Manuela Lang MD - 04/23/2025 4:46 AM EDT See SICU consult note same day. Patient ultimately intubated, R femoral a line, L femoral CVL, epi gtt, albuterol, magnesium, calcium, 5 units PRBC, 2ffp, cryo. I saw and examined the patient and discussed the case with the resident and agree with the findingsand plan as documented in the resident's note. MANUELA LANG MD Attending Surgeon Division of Trauma, Surgical Critical Care, and Acute Care Surgery * Celio Espinosa, LISA - 04/23/2025 3:37 AM EDT Patient Mindy Wade in room SICU-12/USIC-12 intubated with MD at bedside with a hyperangulated blade. #7.5 ETT placed, secured at 23 cm maribeth. Placement verified by auscultation over lung lane andabdomen and also through CO2 detection. * Maggie Hartmann OT - 04/22/2025 4:01 PM EDT Occupational Therapy Treatment Name: Mindy Wade : 1990 Attending Physician: Alejandra Wilson MD Admission Diagnosis: Liver transplant recipient (CMS-HCC) [Z94.4] S/P liver transplant (CMS-HCC) [Z94.4] Date: 04/22/2025 Room: 8032/80 Reviewed Pertinent hospital course: Yes Hospital Course PT/OT: 35 yo female presenting to OR 04/18 for living donor liver txp, extubated onunit post-op. Post-op ab US: WNL. Relevant PMH : latent TB, anxiety, depression, ESLD 2/2 ETOH and HCV Precautions: n/a Activity Level: Activity as tolerated Assist: None Recommendation Recommendation: Home OT Equipment Recommendations: Tub Transfer Bench Tub Transfer Bench Justification: Patient is at risk to fall in shower environment, Patient has decreased activity tolerance requiring use of seat during bathing tasks Assessment Assessment: Decreased ADL status, Decreased activity tolerance, Decreased self- care transfers, Decreased IADLs, Decreased Functional Mobility, Decreased Balance Prognosis for OT goals: Good Pt ambulated to bathroom w/ staffing account manager and niece present. Pt required CGA for toilet transfer and SBAfor toileting hygiene s/p voiding. Pt required SBA for grooming task at sink. Pt ambulated back to bed and reporting fatigue, however pt motivated to sit EOB for therapist to assist w/ braiding hair.Pt tolerated sitting EOB ~10 mins during task. Pt verbalized understanding of continuing to increase mobility over the weekend as tolerated. Pt is limited by the above deficits and would benefit fromcontinued OT intervention to facilitate improved ADL and IADL independence. Outcome Measures AM-PAC 6 Clicks Daily Activity Inpatient Short Form: OT 6 Clicks Score: 17 Cognition Overall Cognitive Status: Within Functional Limits Cognitive Assessment: Arousal/ Alertness;Orientation Level;Behavior;Following Commands;Safety Judgment;Insight Arousal/Alertness: Alert Orientation Level: Oriented X4 Behavior: Appropriate;Cooperative Following Commands: Follows all commands and directions without difficulty Safety Judgment: Good awareness of safety precautions Insight: Demonstrated intact insight into limitation and abilities to complete ADL's safely Pain Pain Score: (not formally rated) Functional Mobility Bed Mobility Sit to Supine: (Family provided x1 assist to pt.) Functional Transfers Sit to Stand: Contact Guard assistance Stand to Sit: Contact Guard assistance Functional Mobility: Contact guard assistance;increased time to complete task Functional Mobility Comment: for functional household distance to/from bathroom Balance Sitting - Static: Independent Sitting - Dynamic: Independent Standing - Static: Stand-by assistance Standing - Dynamic: Contact Guard Assistance Gait belt used: Yes ADL Grooming: Stand-by assistance Grooming Deficit: Wash/dry hands Location Assessed Grooming: Standing at sink Toileting: Stand-by assistance Toileting Deficit: Clothing management up;Clothing management down;Toileting hygiene Location Assessed Toileting: Toilet Position after Treatment/Safety Handoff Position after therapy session: Bed Details: RN notified;Call light/ needs within reach Alarms: Bed Alarms Status: Activated and Interfaced with call system Goals Goals to be met in: 1 week Patient stated goal: to go home, to decrease pain during mobility and ADLs Patient will complete supine to sit in prep for ADLs: Contact Guard assistance (goal met and updated 04/22) Patient will complete functional chair transfer: Stand-by assistance Patient will complete toileting: Stand-by assistance (goal met and updated 04/22) Patient will complete lower body dressing: Moderate assistance Miscellaneous Goal #1: pt will perform household distance functional mobility w/ SBA in prep for toileting (goal met and updated 04/22) Snf Goal : pt will perform IADL task assessment oysterman goal to be met in: 2 weeks Collaborated with: Patient Plan Plan Treatment Interventions: Activity Tolerance training, ADL retraining, Continued evaluation, Patient/Family training, Functional transfer training, Compensatory technique education, Therapeutic Activity OT Frequency during hospitalization: minimum 3x/week The plan of care and recommendations assesses the patient's and/or caregiver's readiness, willingness, and ability to provide or support functional mobility and ADL tasks as needed upon discharge. Patient/Family Education Educated patient on the role of occupational therapy, OT goals, OT plan of care, discharge recommendation, ADL training, functional mobility training, and the importance of safety and fall preventionstrategies including need for supervision/ assistance with OOB activity and use of call light. patient verbalized understanding and demonstrated understanding. OT Time Start Time: 1522 Stop Time: 1548 Time Calculation (min): 26 min OT Charges $Therapeutic Activity: 8-22 mins $Self Care/ADL/Home Management Trainin-22 mins Problem List Problem List[1] Past 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 Past 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: Diagnosis [...] MD; Location: ENDOSCOPY; Service: Gastroenterology; Laterality: N/A; LIVER TRANSPLANTATION N/A 04/18/2025 Procedure: LIVING DONOR LIVER TRANSPLANT; Surgeon: Ludin Jose MD; Location: OR; Service: Transplant; Laterality: N/A; UPPER GASTROINTESTINAL ENDOSCOPY 09/21/2022 [1] Patient Active Problem List Diagnosis Alcoholic cirrhosis of liver with ascites (CMS-HCC) Encounter for pre-transplant evaluation for liver transplant High risk surgery, pre-operative cardiovascular examination High risk due to smoking Other ascites Jaundice Fatigue Immunosuppression (CMS-HCC) Other specified abnormal findings of blood chemistry Acute bacterial bronchitis Asthma Alcohol use Alcohol use disorder, severe, dependence (CMS-HCC) Bite Chemical dependency (CMS-HCC) Cholelithiasis without obstruction Contusion of rib Cough End-stage liver disease (CMS-HCC) Cyst of kidney, acquired Disease of gallbladder, unspecified Disease of stomach and duodenum, unspecified Elevated bilirubin Esophageal varices without bleeding (CMS-HCC) Essential (primary) hypertension Exposure to COVID-19 virus Finger sprain Hepatitis C virus infection Hypokalemia Hyponatremia Lesion of liver Low back pain Nausea New onset seizure (CMS-HCC) Opiate dependence, continuous (CMS-HCC) Other diseases of stomach and duodenum Other disorders of bilirubin metabolism Portal hypertension (CMS-HCC) Shingles Splenomegaly, not elsewhere classified Strep throat Strep throat exposure Varicose veins of other specified sites Viral syndrome * Enoch Miller, PT - 04/22/2025 12:18 PM EDT Physical Therapy/Occupational Therapy Reason Patient Not Seen Name: Mindy Wade : 1990 Attending Physician: Alejandra Wilson MD Admission Diagnosis: Liver transplant recipient (CMS-HCC) [Z94.4] S/P liver transplant (CMS-HCC) [Z94.4] Date: 04/22/2025 Precautions: Precautions: n/a Reviewed Pertinent hospital course: Yes Unable to see patient due to: Pt declined therapy services this date stating she has been up already today and is expecting an enema soon. Pt educated on importance of regular activity during hospital stay to reduce risk for functional decline and assist with GI function. Pt continued to decline therapy services. Time Attempted: 1120 * Marah Hull CNP - 04/22/2025 12:08 PM EDT Transplant Surgery Progress Note Name: Mindy Wade CSN: [id number] Date: 04/22/2025 12:08 PM OR Date: 04/18/2025 Subjective 4 Days Post-Op HDS afebrile Reports pain is poorly controlled No BM yet. No gas. Denies nausea Leaking from drains. Objective Vitals: Temp: [97.6 ??F (36.4 ??C)-98.5 ??F (36.9 ??C)] 98.5 ??F (36.9 ??C) Heart Rate: [69-82] 81 Resp: [14-18] 18 BP: (119-167)/(74-82) 137/74 I/O: Physical Exam: Gen: NAD, alert CV: RRR Resp: nonlabored breathing Abd: Soft, NT/ND, Wound: c/d/i Ext: warm and well perfused, STEPHANY : urinating independently Labs: Recent Labs 04/20/25 0133 04/21/25 0900 04/22/25 0606 WBC 10.9* 6.0 4.1 HGB 11.8 9.7* 9.6* HCT 34.9* 28.4* 27.7* PLT 77* 49* 48* Recent Labs 04/20/25 18004/21/25 0900 04/22/25 0606 NA 133 136 137 K 5.4* 4.1 4.2 CL 108 109 108 CO2 19* 21 22 BUN 57* 64* 43* CREATININE 1.25 1.40* 1.14 GLUCOSE 109* 69* 80 CALCIUM 7.0* 7.4* 7.7* MG 2.6* 2.7* 2.7* PHOS 4.3 3.9 2.7 Recent Labs 04/21/25 0456 04/21/25 1252 04/21/25 1817 04/21/25 2319 04/22/25 0558 04/22/25 1205 POCGMD 74 118* 137* 109* 80 114* Recent Labs 04/20/25 1809 04/21/25 0900 04/22/25 0606 AST 162* 122* 116* ALT 137* 134* 144* BILITOT 1.6* 1.6* 1.9* BILIDIRECT 0.30 0.91* 1.11* ALKPHOS 49 56 83 ALBUMIN 2.6* 2.6* 3.0* 3.0* 3.1* 3.1* Recent Labs 04/19/25 1727 04/20/25 0133 04/21/25 0900 INR 1.9* 1.7* 1.4* PROTIME 23.0* 21.0* 17.8* Imaging: VAS Venous Duplex Upper Left Result Date: 04/22/2025 Right: No evidence for DVT in the contralateral mid subclavian vein. Left: Evidence for acute occluding SVT is seen in the left cephalic vein extending from the antecubital fossa to the mid upper armmeasuring 13 cm in length. Evidence for acute occluding SVT is seen in the left basilic vein extending from the antecubital fossa to the proximal upper arm measuring 18 cm in length. There is no other evidence for DVT/SVT in the remaining upper extremity. Limited visualization of the left forearm veins due to edema and dressing at the distal forearm. 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 Pr ocedure: Upper extremity venous imaging was performed using real time B-mode imaging in the longitudinal and the transverse plane with and without compression. Visualization routinely includes the internal jugular vein, subclavian vein, axillary vein, brachial vein, cephalic vein, basilic vein, and selectively the radial and ulnar vein. Color and spectral Doppler were used to document flow characteristics from the IJV, subclavian vein, and axillary vein to evaluate for the presence or absence of spontaneous flow. Augmentation maneuvers were performed as needed to document venous flow response. On unilateral studies, the contralateral subclavian and/or internal jugular veins are routinely examined. Critical Findings: Critical results were called to Jc Terrazas RN, on 04/21/2025 at 5:03 pm. Current Medications: Scheduled Meds: acetaminophen 975 mg Oral Q8H aspirin 81 mg Oral Daily with breakfast carvediloL 3.125 mg Oral BID cyclobenzaprine 10 mg Oral TID fluconazole 200 mg Oral Daily 0900 gabapentin 900 mg Oral TID heparin 5,000 Units Subcutaneous 3 times per day insulin regular 0-12 Units Subcutaneous Q6H Scheduled lidocaine 1 patch Transdermal Daily 0900 mycophenolate 500 mg Oral BID pantoprazole 40 mg Oral DAILY 0600 polyethylene glycol 17 g Oral Daily 0900 [START ON 04/23/2025] predniSONE 40 mg Oral Once Followed by [START ON 04/24/2025] predniSONE 30 mg Oral Once Followed by [START ON 04/25/2025] predniSONE 25 mg Oral Once Followed by [START ON 04/26/2025] predniSONE 20 mg Oral Daily 0900 S.M.O.G. 400 mL Rectal Once senna-docusate 1 tablet Oral BID sulfamethoxazole-trimethoprim 1 tablet Oral Daily 0900 [Held by provider] tacrolimus 1 mg Oral BID valGANciclovir 450 mg Oral Daily 0900 Continuous Infusions: PRN Meds: albuterol, dextrose 10% in water OR dextrose 10% in water, HYDROmorphone, ondansetron, oxyCODONE OR oxyCODONE, phenoL Assessment/Plan Mindy Wade is a 35 y.o. 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 Plan today: - pain management - suppository followed by enema if no BM - ostomy around drains as leaking. - albumin + lasix HEENT: no issues Resp: no issues, on RA CV: HDS SVT x2 in left arm Nutrition/GI: - s/p OLT 04/18 - POD1 Liver US normal - US yesterday stable - liver enzymes stable. - drains to stay in place for now. Reinforce with ostomy -albumin +lasix Skin/MSK: no issues - PT/OT consulted - Advising: Home w no needs Heme: - Hgb stable ID: Afebrile - Mary-operative abx: complete - fluconazole ppx for 1 month -bactrim and valcyte Immunosuppression: - Maintenance: - Cellcept 500 mg BID - Prednisone Taper: - Tacrolimus: Endocrine: - Home medications: none - HDSSI Neuro: - Dilaudid 0.5 breakthrough - Oxy 5-10 - MMPC PPX: CARIE 5000 units TID, SCD, PPI Dispo: Floor MARAH HULL CNP Transplant Surgery Cosigned by Quan Yates III, MD at 04/24/2025 10:42 AM EST Associated attestation - Quan Yates III, MD - 04/24/2025 10:42 AM EST I saw and evaluated the patient on 04/22/25, and discussed with the STEVEN/resident team. I agree withthe STEVEN/resident???s findings and plan as documented in the STEVEN/resident???s note. Immunosuppression reviewed and discussed with multidisciplinary team. Some ascites leakage around drain site Poor pain control No bm Abdomen soft 1+ LE edema Suppository and enema today Encourage ambulation Graft function great --- Akash Yates III, MD Transplant Surgery (cell) * Geoff Sarmiento RD - 04/22/2025 7:18 AM EDT TXP - Follow Up [facility] Medical Nutrition Therapy Follow-Up Diet Order/Nutrition Support: Diet/Nutrition Orders Diet clear liquid Sips Frequency: Effective Now Number of Occurrences: Until Specified Order Questions: Liquid type: Sips Suicide/Behavior Risk Modification? No Pertinent Information: Pt seen for follow-up. present during visit. Continues on clears. Denies n/v. No BM since machine captain. Mostly just thirsty. Reviewed post-txp nutrition guidelines with pt. Discussed nutrition related lab values s/p liver transplant and increased intake of appropriate foods. Emphasized the importance of food safety including cooking meats and reheating foods to proper temperatures, avoiding cross-contamination when preparing foods, washing fruits and vegetables, and avoiding unpasteurized food products. Encouraged pt to avoid buffets, potlucks, etc. where the preparationand exposure of food is unknown. Also discussed food/drug interaction associated with grapefruit, as well as maintaining adequate hydration. Pt verbalizes basic understanding of diet guidelines. Contact info and Food Safety Nutrition Therapy/High Magnesium Foods handouts provided. Glucose: 69-137 x 24 hours. I/O: +1.9L net volume. 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 Admit Weight: 156 lb (70.8 kg) Current Weight: 166 lb 6.4 oz (75.5 kg) Pertinent Labs: Recent Labs 04/19/25 1727 04/20/25 0133 04/21/25 0900 WBC 13.3* 10.9* 6.0 HGB 12.5 11.8 9.7* HCT 37.1 34.9* 28.4* PLT 77* 77* 49* Recent Labs 04/20/2513204/20/25 18004/21/25 0900 NA 141 133 136 K 5.2 5.4* 4.1 CL 113* 108 109 CO2 21 19* 21 BUN 37* 57* 64* CREATININE 1.01 1.25 1.40* GLUCOSE 150* 109* 69* CALCIUM 7.9* 7.0* 7.4* MG 2.4 2.6* 2.7* PHOS 4.9* 4.3 3.9 Recent Labs 04/20/2513204/20/25180804/21/25 09 AST 163* 162* 122* ALT 127* 137* 134* BILITOT 1.6* 1.6* 1.6* BILIDIRECT 0.59* 0.30 0.91* ALKPHOS 54 49 56 ALBUMIN 2.8* 2.8* 2.6* 2.6* 3.0* 3.0* Scheduled Meds: acetaminophen 975 mg Oral Q8H aspirin 81 mg Oral Daily with breakfast bisacodyL 10 mg Rectal Once carvediloL 3.125 mg Oral BID fluconazole 200 mg Oral Daily 0900 gabapentin 800 mg Oral TID heparin 5,000 Units Subcutaneous 3 times per day insulin regular 0-12 Units Subcutaneous Q6H Scheduled lidocaine 1 patch Transdermal Daily 0900 methocarbamoL 1,000 mg Oral QID methylPREDNISolone sod suc(PF) 50 mg Intravenous Once Followed by [START ON 04/23/2025] predniSONE 40 mg Oral Once Followed by [START ON 04/24/2025] predniSONE 30 mg Oral Once Followed by [START ON 04/25/2025] predniSONE 25 mg Oral Once Followed by [START ON 04/26/2025] predniSONE 20 mg Oral Daily 0900 mycophenolate 500 mg Oral BID pantoprazole 40 mg Oral DAILY 0600 polyethylene glycol 17 g Oral Daily 0900 senna-docusate 1 tablet Oral BID sulfamethoxazole-trimethoprim 1 tablet Oral Daily 0900 tacrolimus 1 mg Oral BID valGANciclovir 450 mg Oral Daily 0900 Continuous Infusions: PRN Meds:albuterol, dextrose 10% in water OR dextrose 10% in water, HYDROmorphone, ondansetron,oxyCODONE OR oxyCODONE, phenoL Vital Signs: Temp: [97.6 ??F (36.4 ??C)-98.4 ??F (36.9 ??C)] 97.6 ??F (36.4 ??C) Heart Rate: [65-91] 82 Resp: [0-18] 18 BP: (114-185)/(74-100) 119/74 Skin Integrity: Abdominal incision Daniel Scale Score: 17 Edema: Generalized Edema: Moderate pitting, indentation subsides rapidly RUE Edema: Deep pitting, indentation remains for a short time LUE Edema: Deep pitting, indentation remains for a short time RLE Edema: Deep pitting, indentation remains for a short time LLE Edema: Deep pitting, indentation remains for a short time GI: Abdomen Inspection: Soft, Surgical Scar Bowel Sounds (All Quadrants): Active Palpation/Percussion: Soft, Tenderness Passing Flatus: No Ventilator Settings: Anthropometrics: Ht Readings from Last 1 Encounters: 04/18/25 5' 5 (1.651 m) Wt Readings from Last 1 Encounters: 04/22/25 166 lb 6.4 oz (75.5 kg) Body mass index is 27.69 kg/m??. Estimated Nutrition Needs: Based on DBW of 68.1 kg Kcals/day: 7127-8093 (25-30 kcals/kg) Protein g/day: 100-140 (1.5-2.0 g/kg) Carbohydrates g/day: 45-55% of total calories Fluid ml/day: 1 ml/kcal or per MD *Needs based on clinical status at this time and subject to change. Nutrition Diagnosis Problem: Increased kcal/protein needs Related To: Increased demand for nutrients As Evidenced By: Recent liver transplant, medically complex Nutrition Diagnosis Problem: Food- and nutrition-related knowledge deficit Related to: Exposure to new information As evidenced by: Recent liver transplant and subsequent need for medical nutrition therapy education Established Nutrition Intervention: Monitor PO Intake/Tolerance and Education/Counseling: Food Safety Established Goals: Total energy intake improved as evidenced by PO intake at least 75% of meals/supplements/snacks within 1-3 days and Voices/demonstrates knowledge of Food Safety education/counseling Goals: Partially Met - po intake not well established Coordination of Nutrition Care: Currently there are no further barriers to discharge from a nutrition perspective and will further assess patient on an as needed basis as identified by the transplantmultidisciplinary team This information has been communicated to the transplant multidisciplinary team Follow up: per policy while inpatient. If patient is discharged, dietitian will be available for consultation on an as needed basis as identified by the multidisciplinary team. Additional Recommendation(s) to Physicians: No New Recommendations Jc Sarmiento RD, LD Clinical Dietitian - Solid Organ Transplant Contact via [employer] Chat * Tresa Beltran PharmD - 04/21/2025 6:00 PM EDT Caprini Risk Score for Liver Transplant Recipients Caprini risk assessment model for venous thromboembolism adapted for liver transplant recipients Total Points Select age (select one): [x] 0 - 40 years old (0 points) 0 [] 41 - 60 years old (1 point) [] 61 - 74 years old (2 points) [] 75 years old or older (3 points) Select if patient is admitted for a liver transplant surgery (3 points) [x] 2. Admitted for a liver transplant (includes 2 points for planned procedure greater than 45 minutes, and 1 point for major surgery greater than 2 hours) 3 Each of the following criteria that apply now or within the past month, receives 1 point (select all that apply): [] 3. Within the past month, the patient had major surgery under anesthesia that lasted for MORE than 45 minutes (prior to transplant surgery) [] 4. Within the past month, has the patient had varicose veins (NOT spider veins) [] 5. Within the past month, has the patient had swollen legs including pitting edema of any level,loss of definition of the bony prominences, obscured foot veins, or indentation of the leg when a stocking is removed [] 6. Within the past month, has the patient had an episode of myocardial infarction [] 7. Within the past month, has the patient had serious infection requiring hospitalization []8. History of inflammatory bowel disease (including Crohn's or ulcerative colitis) [x] 9. Patient with BMI above 25 kg/m2 1 [] 10. Patient has history of congestive heart failure This risk factor include patients who have had an episode within the last month. Additionally, patients who are currently being treated with medication for CHF are included, even if they had not had an acute episode within the past month. An ejection fraction alone should not be used when determining whether a patient meets this criteria 0 11. Enter number of lung diseases including but not limited to: emphysema, COPD, any interstitiallung disease, patients with abnormal pulmonary function tests, sarcoidosis, pulmonary fibrosis, pulmonary hypertension, and bronchiectasis. Patients who present with more than 1 diagnosis meeting the criteria for lung disease receive 1 point for each diagnosis. Each of these other risk factors that apply now or within the past month receives 1 point (select all that apply): [] 12. BMI above 40 kg/m2 [] 13. Smoking within the last month (smoking is defined as the inhalation of anything that deras [eg, tobacco, marijuana], or vaping) [] 14. Diabetes requiring insulin (does not include oral or parenteral medications used for the treatment of diabetes) [] 15. Chemotherapy (includes chemotherapy treatments used for any medical condition (eg, methotrexate for rheumatoid arthritis, hydroxyurea for essential thrombocytosis) [] 16. History of HIV [x] 17. Blood transfusion(s) (1 point for 1 or more transfusion) 1 [] 18. Restricted mobility defined as unable to ambulate continuously for 30 feet for less than 72 hours For WOMEN only, add 1 point for each statement that applies (select all that apply): [] 19. Patient currently uses control or hormone replacement therapy including estrogen contraceptives of any type, or estrogen-like drugs (tamoxifen, anastrozole, letrozole). Does not include testosterone replacement therapy or progesterone. [] 20. or had a baby within the last month [] 21. History of unexplained stillborn , recurrent spontaneous (3 or more), premature with toxemia or growth restricted Each of the following criteria receives 2 points (select all that apply): 0 22. Enter number of current or past malignancies (excluding skin cancer). Every incidence of cancer is considered separately and points are additive. Patients who present with more than 1 diagnosismeeting the criteria for current or past malignancies receive 2 points for each diagnosis. [] 23. Within the past month, has the patient had a nonremovable cast or mold that prevents leg movement. Also includes patients using crutches who are non- weightbearing on one leg. Does not include the use of an assistive device for stability. [x] 24. Within the past month, has the patient had a central line, PICC, or Port? 2 [] 25. Impaired mobility defined as unable to ambulate continuously for 30 feet for more than 72 hours Each of the following criteria receives 3 points (select all that apply): 1 26. Enter number of episodes of blood clots (includes: deep vein thrombosis (DVT), pulmonary embolism (PE); or superficial vein thrombosis (SVT). Each episode is a separate event for scoring. 3 [] 27. Family history of blood clots (includes first-, second-, and third-degree relatives) 0 28. Enter number of personal or family history of positive blood test indicating an increased risk of blood clotting (eg, genetic or acquired thrombophilia) Each of the following criteria that apply now or within the past month receives 5 points (select all that apply): [] 29. Within the past month, the patient had a broken hip, pelvis, or leg (fractures requiring surgical repair receive 5 points for the fracture and additional points for the surgery depending on time [eg, >45 minutes] and type [eg, hip replacement], as well as points for any resulting restricted mobility (eg, cast placed) 0 30. Enter the number of elective hip or knee joint replacements (total or partial; points assessed for each surgical procedure. [] 31. Within the past month, the patient had a serious trauma (eg, multiple broken bones due to a fall or car accident) [] 32. Within the past month, the patient had a spinal cord injury resulting in paralysis [] 33. Within the past month, the patient had a stroke Final Score 10 * We use the Caprini Risk Assessment model for general, abdominal-pelvic, bariatric, vascular, and plastic and reconstructive surgery Maria G M, Kota N, Kyler ES, et al. Completion of the Updated Caprini Risk Assessment Model (2013 Version). Clin Appl Thromb Hemost 2019; 25:1. Estimated baseline risk (EBR) of VTE and Chemoprophylaxis Duration by risk category Points Risk Category EBR Chemoprophylaxis Duration 0 - 4 Low/Medium < 0.7% During hospitalization 5 - 8 High 1.5 - 4% 10 days total* >= 9 Very High 10.7% 30 days total* *Including duration during hospitalization Date of liver transplant: 04/18/25 Most recent operative procedure: 04/18/25 Crcl: Estimated Creatinine Clearance: 55.3 mL/min (A) (based on SCr of 1.4 mg/dL (H)). Based on the Caprini Risk Score of 10 and [facility] transplant protocol, I recommend discharging on heparin 5,000 units subcutaneously q8h (facility) or Eliquis 2.5 mg PO BID (home) for 30 days total. Endof chemoprophylaxis: 05/18/25. Tresa Beltran PharmD Solid Organ Transplant Clinical Bi Tester Contact via [employer] Secure Chat * Mary Timmons PT - 04/21/2025 3:24 PM EDT Physical Therapy Reason Patient Not Seen Name: Mindy Wade : 1990 Attending Physician: Alejandra Wilson MD Admission Diagnosis: Liver transplant recipient (CMS-HCC) [Z94.4] S/P liver transplant (CMS-HCC) [Z94.4] Date: 04/21/2025 Precautions: Precautions: n/a Reviewed Pertinent hospital course: Yes Unable to see patient due to: Pt politely declined to participate with PT at this time as she is pending a suppository and wants to complete a bath soon. Reported pain in CYNTHIA RN notified. PT will reattempt as schedule allows per POC. Thank you. Time Attempted: 1515 * Giovanny Louis MD - 04/21/2025 6:01 AM EDT Transplant Surgery Progress Note Name: Mindy Wade CSN: [id number] Date: 04/21/2025 6:01 AM OR Date: 04/18/2025 Subjective 3 Days Post-Op NAEO HDS on room air Complaining of pain this AM Dry mouth, wants to start drinking water Poor access, needs PICC 500cc 5% albumin given overnight for ALINE Objective Vitals: Temp: [97.5 ??F (36.4 ??C)-98.1 ??F (36.7 ??C)] 97.5 ??F (36.4 ??C) Heart Rate: [65-99] 76 Resp: [8-24] 14 BP: (113-150)/(70-90) 129/82 I/O: Drain Output and Description: - Perihepatic Drain 100 mL (SS) - Hilar Drain 190mL (SS) Physical Exam: Gen: NAD, alert CV: RRR Resp: nonlabored breathing Abd: Soft, NT/ND, Wound: c/d/i Ext: warm and well perfused, STEPHANY : urinating independently Labs: Recent Labs 04/19/25 1241 04/19/257 04/20/25 0133 WBC 15.6* 13.3* 10.9* HGB 12.9 12.5 11.8 HCT 37.8 37.1 34.9* PLT 95* 77* 77* Recent Labs 04/19/25 1727 04/20/25 0133 04/20/25 1809 NA 141 141 133 K 5.4* 5.2 5.4* CL 113* 113* 108 CO2 21 21 19* BUN 31* 37* 57* CREATININE 0.92 1.01 1.25 GLUCOSE 133* 150* 109* CALCIUM 7.8* 7.9* 7.0* MG 2.3 2.4 2.6* PHOS 4.7 4.9* 4.3 Recent Labs 04/18/25 1256 04/18/25 1339 04/18/25 1410 04/18/25 1506 04/18/25 1600 04/18/25 1700 04/18/25 1859 04/20/25 0126 04/20/25 0534 04/20/25 1231 04/20/25 1830 04/20/25 2327 04/21/25 0456 POCGLU 102* 124* 158* 144* 133* 136* -- -- -- -- -- -- -- POCGMD -- -- -- -- -- -- < > 156* 144* 121* 103* 96 74 < > = values in this interval not displayed. Recent Labs 04/19/25 1727 04/20/25 0133 04/20/25 1809 AST 178* 163* 162* ALT 131* 127* 137* BILITOT 2.0* 1.6* 1.6* BILIDIRECT 0.79* 0.59* 0.30 ALKPHOS 58 54 49 ALBUMIN 2.9* 2.9* 2.8* 2.8* 2.6* 2.6* Recent Labs 04/19/25 1241 04/19/25 1727 04/20/25 0133 INR 1.8* 1.9* 1.7* PROTIME 22.0* 23.0* 21.0* Imaging: No results found. Current Medications: Scheduled Meds: acetaminophen 975 mg Oral Q8H aspirin 81 mg Oral Daily with breakfast bisacodyL 10 mg Rectal Once fluconazole 200 mg Oral Daily 0900 gabapentin 800 mg Oral TID heparin 5,000 Units Subcutaneous 3 times per day insulin regular 0-12 Units Subcutaneous Q6H Scheduled lidocaine 1 patch Transdermal Daily 0900 methocarbamoL 500 mg Intravenous Q8H methylPREDNISolone sod suc(PF) 60 mg Intravenous Once Followed by [START ON 04/22/2025] methylPREDNISolone sod suc(PF) 50 mg Intravenous Once Followed by [START ON 04/23/2025] predniSONE 40 mg Oral Once Followed by [START ON 04/24/2025] predniSONE 30 mg Oral Once Followed by [START ON 04/25/2025] predniSONE 25 mg Oral Once Followed by [START ON 04/26/2025] predniSONE 20 mg Oral Daily 0900 mycophenolate 500 mg Oral BID pantoprazole 40 mg Oral DAILY 0600 sulfamethoxazole-trimethoprim 1 tablet Oral Daily 0900 tacrolimus 2 mg Oral BID valGANciclovir 450 mg Oral Daily 0900 Continuous Infusions: PRN Meds: albuterol, dextrose 10% in water OR dextrose 10% in water, HYDROmorphone OR HYDROmorphone, ondansetron, oxyCODONE, phenoL Assessment/Plan Mindy Wade is a 35 y.o. 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 Plan today: - sips of clears - follow-up liver US - PICC for access - MMPC adjustments HEENT: no issues Resp: no issues, on RA CV: HDS off pressors, no issues Nutrition/GI: - s/p OLT 04/18 - POD1 Liver US normal - LFTs mixed, ALT with slight bump yesterday morning labs pending access - NPO except sips of clears Fluid/Electrolytes/Renal: - ALINE, 500cc albumin given overnight - follow-up morning renal - mIVF @ 75 Skin/MSK: no issues - PT/OT consulted - Advising: Home w no needs Heme: - Hgb stable ID: Afebrile - Mary-operative abx: complete - fluconazole ppx for 1 month Immunosuppression: - Induction: - Maintenance: - Cellcept 500 mg BID - Prednisone Taper: - Tacrolimus: 2/2, daily FKs Endocrine: - Home medications: none - HDSSI Neuro: - Dilaudid 0.5 breakthrough - Oxy 5-10 - MMPC Psych: -Home meds: n/a PPX: CARIE 5000 units TID, SCD, PPI Dispo: Floor GIOVANNY LOUIS MD Transplant Surgery [facility] Surgery Resident Cosigned by Alejandra Wilson MD at 04/22/2025 9:00 PM EDT Associated attestation - Alejandra Wilson MD - 04/22/2025 9:00 PM EDT This patient was seen and examined by the STEVEN/Resident team on 04/21/25. I have discussed the patient's care with the team. Immunosuppression reviewed and discussed with multidisciplinary team. I have personally seen and examined this patient on 04/21/25. Alejandra Wilson MD PhD Transplant Surgery * Salkaleb Rose - 04/20/2025 12:46 PM EDT 04/20/25 1027 Clinical Encounter Spiritual Care Consult Needed No Visited With Patient;Family () Interdisciplinary Interaction No Unit SICU Visit Initial Visit Type Critical Care Referral From No Referral Follow-up Needed No Care Provided Active Listening;Prayer Social Support - Who is supportive? Social Support - Are they present? Yes Social Support - Is presence helpful? Yes Total Time Spent (minutes) 7 minutes Routine visit while on the floor. Provided pastoral presence, emotional and spiritual support. The focus of our conversation centered around the patient's cirstian and health concerns. Bistro Attendant can be paged at [phone] if needs arise or would like follow-up, or patient/family requests a visit. Chaplains are available and can be paged 24 hours a day. Chaplain John Rose Th.D., M.Div., M.R.E., [facility]. * Giovanny Louis MD - 04/20/2025 12:42 PM EDT Transplant Surgery Progress Note Name: Mindy Wade CSN: [id number] Date: 04/20/2025 6:05 AM OR Date: 04/18/2025 Subjective 2 Days Post-Op NAEO HDS on 1L NC Feeling well this am, wants to drink water Complaining of increased pain requiring dilaudid Q2 No nausea, had numerous cups of ice chips Passing flatus Objective Vitals: Temp: [98.1 ??F (36.7 ??C)-98.9 ??F (37.2 ??C)] 98.9 ??F (37.2 ??C) Heart Rate: [73-99] 73 Resp: [6-22] 10 BP: (103-131)/(70-87) 124/80 Arterial Line BP: (92-141)/(66-75) 137/75 I/O: Drain Output and Description: - Perihepatic Drain 250 mL (SS) - Hilar Drain 535mL (SS) - N Physical Exam: Gen: NAD, alert CV: RRR Resp: nonlabored breathing Abd: Soft, NT/ND, Wound: c/d/i Ext: warm and well perfused, STEPHANY : urinating independently Labs: Recent Labs 04/19/25 1241 04/19/25 1727 04/20/25 0133 WBC 15.6* 13.3* 10.9* HGB 12.9 12.5 11.8 HCT 37.8 37.1 34.9* PLT 95* 77* 77* Recent Labs 04/19/25 1241 04/19/25 1727 04/20/25 0133 NA 139 141 141 K 5.2 5.4* 5.2 CL 112* 113* 113* CO2 23 21 21 BUN 27* 31* 37* CREATININE 0.85 0.92 1.01 GLUCOSE 120* 133* 150* CALCIUM 7.6* 7.8* 7.9* MG 2.2 2.3 2.4 PHOS 4.1 4.7 4.9* Recent Labs 04/18/25 1256 04/18/25 1339 04/18/25 1410 04/18/25 1506 04/18/25 1600 04/18/25 1700 04/18/25 1859 04/19/25 0624 04/19/25 0833 04/19/25 1237 04/19/25 1725 04/20/25 0126 04/20/25 0534 POCGLU 102* 124* 158* 144* 133* 136* -- -- -- -- -- -- -- POCGMD -- -- -- -- -- -- < > 113* 105* 109* 118* 156* 144* < > = values in this interval not displayed. Recent Labs 04/19/25 1241 04/19/25 17204/20/25 0133 AST 185* 178* 163* ALT 142* 131* 127* BILITOT 2.1* 2.0* 1.6* BILIDIRECT 0.81* 0.79* 0.59* ALKPHOS 57 58 54 ALBUMIN 2.9* 2.9* 2.9* 2.9* 2.8* 2.8* Recent Labs 04/19/25 1241 04/19/25 17204/20/25 0133 INR 1.8* 1.9* 1.7* PROTIME 22.0* 23.0* 21.0* Imaging: US Abdomen Limited Result Date: 04/19/2025 EXAM: US ABDOMEN LIMITED EXAM: US DUPLEX [id number] COMPLETE INDICATION: Other - Must specify in Comments field COMPARISON: MRI abdomen 02/07/2025. TECHNIQUE: Grayscale imaging was performed with attention to the right upper quadrant; color and spectral (duplex) Doppler analysis of the hepatic vasculature was also performed. FINDINGS: Liver: Normal grayscale appearance of the right lobe liver allograft. No focal hepatic lesions. Partially visualized perihepatic drain. Biliary/CBD: 4 mm. No intra or extrahepatic ductal dilatation. Gallbladder: Surgically absent.. Pancreas: Obscured by overlying bowel gas. Right kidney: 10.3 cm in length. Normal parenchymal echogenicity. No hydronephrosis. Other: Trace perihepatic fluid. Retrohepatic IVC is patent. DOPPLER: Hepatic Veins: Duplex evaluation of the hepatic vasculature demonstrates normal flow in the right hepatic vein. Additionally, images were subsequently obtained demonstrating venous waveforms along the cut surface of the liver coursing towards the IVC consistent with the hepatic vein graft. Portal Veins: The right and main portal vein demonstrate hepatopetal flow. Hepatic Arteries: Right hepatic artery demonstrate normal waveform Resistive Indices Extrahepatic right hepatic artery: 0.67-0.69 Intrahepatic right hepatic artery: 0.61-0.74 IMPRESSION: RIGHT UPPER QUADRANT 1. 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 2. Trace perihepatic fluid. LIVER DOPPLER 1. Patent hepatic vasculature with antegrade flow. Approved by Rosalee Jacinto MD on 04/19/2025 11:56 AM EDT I have personally reviewed the images and I agree with this report. Report Verified by: Francisco Kerr MD at 04/19/2025 2:31 PM EDT US Duplex [id number] Comp Result Date: 04/19/2025 EXAM: US ABDOMEN LIMITED EXAM: US DUPLEX [id number] COMPLETE INDICATION: Other - Must specify in Comments field COMPARISON: MRI abdomen 02/07/2025. TECHNIQUE: Grayscale imaging was performed with attention to the right upper quadrant; color and spectral (duplex) Doppler analysis of the hepatic vasculature was also performed. FINDINGS: Liver: Normal grayscale appearance of the right lobe liver allograft. No focal hepatic lesions. Partially visualized perihepatic drain. Biliary/CBD: 4 mm. No intra or extrahepatic ductal dilatation. Gallbladder: Surgically absent.. Pancreas: Obscured by overlying bowel gas. Right kidney: 10.3 cm in length. Normal parenchymal echogenicity. No hydronephrosis. Other: Trace perihepatic fluid. Retrohepatic IVC is patent. DOPPLER: Hepatic Veins: Duplex evaluation of the hepatic vasculature demonstrates normal flow in the right hepatic vein. Additionally, images were subsequently obtained demonstrating venous waveforms along the cut surface of the liver coursing towards the IVC consistent with the hepatic vein graft. Portal Veins: The right and main portal vein demonstrate hepatopetal flow. Hepatic Arteries: Right hepatic artery demonstrate normal waveform Resistive Indices Extrahepatic right hepatic artery: 0.67-0.69 Intrahepatic right hepatic artery: 0.61-0.74 IMPRESSION: RIGHT UPPER QUADRANT 1. 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 2. Trace perihepatic fluid. LIVER DOPPLER 1. Patent hepatic vasculature with antegrade flow. Approved by Rosalee Jacinto MD on 04/19/2025 11:56 AM EDT I have personally reviewed the images and I agree with this report. Report Verified by: Francisco Kerr MD at 04/19/2025 2:31 PM EDT Current Medications: Scheduled Meds: AMPicillin IVPB 1 g Intravenous Q6H aspirin 81 mg Oral Daily with breakfast famotidine (PF) 20 mg Intravenous 2 times per day fluconazole in sodium chloride (iso-osm) 200 mg Intravenous Q24H [Held by provider] gabapentin 800 mg Oral TID heparin 5,000 Units Subcutaneous 3 times per day insulin regular 0-12 Units Subcutaneous Q6H Scheduled methocarbamoL 500 mg Intravenous Q8H methylPREDNISolone sod suc(PF) 125 mg Intravenous Once Followed by [START ON 04/21/2025] methylPREDNISolone sod suc(PF) 60 mg Intravenous Once Followed by [START ON 04/22/2025] methylPREDNISolone sod suc(PF) 50 mg Intravenous Once Followed by [START ON 04/23/2025] predniSONE 40 mg Oral Once Followed by [START ON 04/24/2025] predniSONE 30 mg Oral Once Followed by [START ON 04/25/2025] predniSONE 25 mg Oral Once Followed by [START ON 04/26/2025] predniSONE 20 mg Oral Daily 0900 mycophenolate (CELLCEPT) IVPB 500 mg Intravenous BID pantoprazole (PROTONIX) IV 40 mg Intravenous DAILY 0600 tacrolimus 2 mg Oral BID Continuous Infusions: sodium chloride 0.9 % 75 mL/hr (04/20/25 0603) PRN Meds: dextrose 10% in water OR dextrose 10% in water, HYDROmorphone OR HYDROmorphone, ondansetron, phenoL Assessment/Plan Mindy Wade is a 35 y.o. 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 Plan today: - NG out - NPO except for mouth swabs and meds HEENT: no issues Resp: on 1L NC - PRN albuterol/duonebs CV: HDS off pressors - MAP > 65 - Prior cardiac Hx (none) - Resume home meds if hypertensive Nutrition/GI: - s/p OLT 04/18 - POD1 Liver US normal - DC NG tube - LFTs down trending - NPO except mouth swabs and meds Fluid/Electrolytes/Renal: - UOP 190 but occurrences not caught - mIVF @ 75 Skin/MSK: no issues - PT/OT consulted - Advising: pending Heme: - Hgb stable ID: Afebrile - Mary-operative abx: complete - fluconazole ppx for 1 month Immunosuppression: - Induction: - Maintenance: - Cellcept 500 mg BID - Prednisone Taper: - Tacrolimus: 2/2, daily FKs Endocrine: - Home medications: none - HDSSI Neuro: - Dilaudid 0.5-1 - MMPC Psych: -Home meds: n/a PPX: CARIE 5000 units TID, SCD, PPI Dispo: SICU GIOVANNY LOUIS MD Transplant Surgery [facility] Surgery Resident Cosigned by Alejandra Wilson MD at 04/20/2025 9:20 PM EDT Associated attestation - Alejandra Wilson MD - 04/20/2025 9:20 PM EDT This patient was seen and examined by the STEVEN/Resident team on 04/20/2025. I have discussed the patient's care with the team. Immunosuppression reviewed and discussed with multidisciplinary team. I have personally seen and examined this patient on 04/20/2025. Alejandra Wilson MD PhD Transplant Surgery * Gracia Ball OT - 04/20/2025 10:21 AM EDT Occupational Therapy Initial Assessment Name: Mindy Wade : 1990 Attending Physician: Ludin Jose MD Admission Diagnosis: Liver transplant recipient (CMS-HCC) [Z94.4] Date: 04/20/2025 Room: [place] [id number]/[place] [address] Reviewed Pertinent hospital course: Yes Hospital Course PT/OT: 35 yo female presenting to OR 04/18 for living donor liver txp, extubated onunit post-op. Post-op ab US: WNL. Relevant PMH : latent TB, anxiety, depression, ESLD 2/2 ETOH and HCV Precautions: n/a Activity Level: Activity as tolerated Assist: Co-evaluation performed Recommendation Recommendation: Home OT (pending increased OOB functional assessment / pain control) Equipment Recommendations: Tub Transfer Bench Tub Transfer Bench Justification: Patient is at risk to fall in shower environment, Patient has decreased activity tolerance requiring use of seat during bathing tasks Assessment Assessment: Decreased Balance, Decreased self-care transfers, Decreased Safe judgment during ADL, Decreased ADL status, Decreased activity tolerance, Decreased Functional Mobility, Decreased IADLs Prognosis for OT goals: Good Mindy tolerated OT assessment fair, though was limited by significant pain. Pt EOB on OT arrival.She required grossly CGA to stand and transfer bed>BSC>chair w/ use of RW + increased time. Pt performed lower body dressing and toileting w/ mod to max A. Anticipate pt will progress well as pain improves. Educated pt re: sitting in chair TID. Pt would benefit from continued skilled occupational therapy services to maximize safety and functional independence. Outcome Measures AM-PAC 6 Clicks Daily Activity Inpatient Short Form: OT 6 Clicks Score: 17 Home Living/Prior Function Patient able to provide accurate information at this time: Yes Lives With: Spouse Assistance available: 24 hour assistance Type of Home: House Home Entry: More than 1 step to enter Stairs to enter: 3 Home Layout: Multi-level, Able to live on main level with bedroom/bathroom Bathroom Shower/Tub: Tub/shower unit Bathroom Equipment: none Home Equipment: None Prior Function Functional Mobility: Independent ( no assistive device) Receives Help From: None needed prior to admission ADL Assistance: Independent IADL Assistance: Independent 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) Leisure: Hobbies-yes (Comment) Leisure Activities: cooking Pain Pain Score: 7 Pain Location: Abdomen Pain Descriptors: Sore Pain Intervention(s): Repositioned;Ambulation/increased activity Supplemental Oxygen Supplemental Oxygen Supplemental Oxygen: None (Room air) Vitals Vitals Therapy Vitals : VSS throughout Cognition Overall Cognitive Status: Within Functional Limits Cognitive Assessment: Arousal/ Alertness;Orientation Level;Behavior;Following Commands;Safety Judgment;Memory;Insight;Communication Arousal/Alertness: Alert Orientation Level: Oriented X4 Behavior: Cooperative;Appropriate Following Commands: Follows all commands and directions without difficulty Safety Judgment: Good awareness of safety precautions Insight: Demonstrated intact insight into limitation and abilities to complete ADL's safely Gomez Agitation Sedation Scale: Alert and calm Vision/Hearing/Perception Hearing: No hearing deficits noted Baseline Vision: No visual deficits Overall Vision/ Perception: Within Functional Limits Right Upper Extremity Right UE ROM: Grossly WFL as observed during functional activities Right UE Strength: Grossly WFL (at least 3+/5) as observed during functional activities Right UE Muscle Tone: Normal Right Hand Function: Grossly WFL as observed during functional activity Left Upper Extremity Left UE ROM: Grossly WFL as observed during functional activities Left UE Strength: Grossly WFL (at least 3+/5) as observed during functional activities Left UE Muscle Tone: Normal Left UE Hand Function: Grossly WFL as observed during functional activites Neuromuscular Overall Sensation: Within Functional Limits Functional Mobility Bed Mobility Supine to Sit: (pt seated EOB on OT arrival) Transfers Sit to Stand: Contact guard assistance Bed to Chair: Contact guard assistance (bed>BSC) Chair to Bed: Contact guard assistance;with assistive device (BSC to chair) Chair to Bed Assistive Device: Rolling walker Functional Mobility: Contact guard assistance;with assistive device (pt ambulated a few steps to chair w/ CGA, RW, and increased time) Functional Mobility Assistive Device: Rolling walker Balance Sitting - Static: Stand by Assistance Sitting-Dynamic: Contact Guard Assistance Standing-Static: Contact Guard Assistance;With Assistive Device (cues for trunk extension) Standing-Static Assistive Device: Rolling walker Standing-Dynamic: Contact Guard Assistance;With Assistive Device Standing-Dynamic Assistive Device: Rolling walker Gait belt used: Yes ADL Feeding: Stand-by assistance Location Assessed Feeding: Seated in chair Feeding Deficit Additional Comments: ice chips Grooming: Stand-by assistance Grooming Deficit: Wash/dry hands Location Assessed Grooming: Seated in chair Lower Body Dressing: Maximum assistnace Lower Body Dressing Deficit: Don/doff underwear or brief Location Assessed LE Dressing: Toilet Toileting: Moderate assistance Toileting Deficit: Clothing management up;Toileting hygiene Location Assessed Toileting: BSC Position after Treatment/Safety Handoff Position after therapy session: Chair Details: RN notified;Call light/ needs within reach Alarms: Chair Alarms Status: Activated and Interfaced with call system Plan Plan Treatment Interventions: Activity Tolerance training, ADL retraining, Continued evaluation, Patient/Family training, Functional transfer training, Compensatory technique education, Therapeutic Activity OT Frequency during hospitalization: minimum 3x/week The plan of care and recommendations assesses the patient's and/or caregiver's readiness, willingness, and ability to provide or support functional mobility and ADL tasks as needed upon discharge. Goals Goals to be met in: 1 week Patient stated goal: to go home, to decrease pain during mobility and ADLs Patient will complete supine to sit in prep for ADLs: Will tolerate assessment Patient will complete functional chair transfer: Stand-by assistance Patient will complete toileting: Minimal assistance Patient will complete lower body dressing: Moderate assistance Miscellaneous Goal #1: pt will perform household distance functional mobility w/ CGA in prep for toileting Snf Goal : pt will perform IADL task assessment oysterman goal to be met in: 2 weeks Collaborated with: Patient Patient/Family Education Educated patient on the role of occupational therapy, OT goals, OT plan of care, discharge recommendation, ADL training, functional mobility training, and the importance of safety and fall preventionstrategies including need for supervision/ assistance with OOB activity and use of call light. patient verbalized understanding. OT Time Start Time: 0835 Stop Time: 0900 Time Calculation (min): 25 min OT Charges $OT Evaluation Mod Complex 45 Min: 1 Procedure Problem List Problem List[1] Past 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 Past 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: Diagnosis [...] MD; Location: ENDOSCOPY; Service: Gastroenterology; Laterality: N/A; LIVER TRANSPLANTATION N/A 04/18/2025 Procedure: LIVING DONOR LIVER TRANSPLANT; Surgeon: Ludin Jose MD; Location: [facility]; Service: Transplant; Laterality: N/A; UPPER GASTROINTESTINAL ENDOSCOPY 09/21/2022 [1] Patient Active Problem List Diagnosis Alcoholic cirrhosis of liver with ascites (CMS-HCC) Encounter for pre-transplant evaluation for liver transplant High risk surgery, pre-operative cardiovascular examination High risk due to smoking Other ascites Jaundice Fatigue Immunosuppression (CMS-HCC) Other specified abnormal findings of blood chemistry Acute bacterial bronchitis Asthma Alcohol use Alcohol use disorder, severe, dependence (CMS-HCC) Bite Chemical dependency (CMS-HCC) Cholelithiasis without obstruction Contusion of rib Cough End-stage liver disease (CMS-HCC) Cyst of kidney, acquired Disease of gallbladder, unspecified Disease of stomach and duodenum, unspecified Elevated bilirubin Esophageal varices without bleeding (CMS-HCC) Essential (primary) hypertension Exposure to COVID-19 virus Finger sprain Hepatitis C virus infection Hypokalemia Hyponatremia Lesion of liver Low back pain Nausea New onset seizure (CMS-HCC) Opiate dependence, continuous (CMS-HCC) Other diseases of stomach and duodenum Other disorders of bilirubin metabolism Portal hypertension (CMS-HCC) Shingles Splenomegaly, not elsewhere classified Strep throat Strep throat exposure Varicose veins of other specified sites Viral syndrome * Mary Timmons, PT - 04/20/2025 10:20 AM EDT Physical Therapy Initial Assessment Name: Mindy Wade : 1990 Attending Physician: Ludin Jose MD Admission Diagnosis: Liver transplant recipient (CMS-HCC) [Z94.4] Date: 04/20/2025 Room: [place] [address] Reviewed Pertinent hospital course: Yes Hospital Course PT/OT: 35 yo female presenting to OR 04/18 for living donor liver txp, extubated onunit post-op. Post-op ab US: WNL. Relevant PMH : latent TB, anxiety, depression, ESLD 2/2 ETOH and HCV Precautions: n/a Activity Level: Activity as tolerated Assist: Co-evaluation performed Assessment Assessment: Impaired Bed Mobility, Impaired Transfers, Impaired Gait, Impaired Balance, Impaired Strength, Impaired Activity Tolerance, Impaired Stair Negotiation Prognosis: Good Pt is cooperative with PT this date. Requires CGA-Ziyad for sit to stand and multiple stand-step transfers with hand-held assist vs RW. Pt significantly limited by pain today, anticipate she will be able to ambulate with little assist once pain improves. Pt demonstrates impaired balance, strength, and activity tolerance and will continue to benefit from skilled physical therapy to address functional mobility impairments. Recommendation Recommendation: Anticipate no further PT needed after discharge (pending further mobility assessment) Equipment Recommended: Defer until further assessment AM-PAC 6 Clicks Basic Mobility Inpatient Short Form: PT 6 Clicks Score: 18 Mobility Recommendations for Staff Patient ability: Patient transfers to chair/ bedside commode Assist needed: with 1 person assist Equipment/ Precautions needed: Requires assistive device, use gait belt Requires Assistive Device: Rolling walker Home Living/Prior Function Patient able to provide accurate information at this time: Yes Lives With: Spouse Assistance available: 24 hour assistance Type of Home: House Home Entry: More than 1 step to enter Stairs to enter: 3 Home Layout: Multi-level;Able to live on main level with bedroom/bathroom Bathroom Shower/Tub: Tub/shower unit Bathroom Equipment: none Home Equipment: None Prior Function Functional Mobility: Independent ( no assistive device) Receives Help From: None needed prior to admission ADL Assistance: Independent IADL Assistance: Independent 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) Leisure Activities: cooking Pain Pain Score: 7 Pain Location: Abdomen Pain Descriptors: Sore Pain Intervention(s): Repositioned;Ambulation/increased activity Vision Hearing/Vision/Perception Hearing: No hearing deficits noted Baseline Vision: No visual deficits Overall Vision/ Perception: Within Functional Limits Cognition Overall Cognitive Status: Within Functional Limits Cognitive Assessment: Arousal/ Alertness;Orientation Level;Behavior;Following Commands;Safety Judgment;Memory;Insight;Communication Arousal/Alertness: Alert Orientation Level: Oriented X4 Behavior: Cooperative;Appropriate Following Commands: Follows all commands and directions without difficulty Safety Judgment: Good awareness of safety precautions Insight: Demonstrated intact insight into limitation and abilities to complete ADL's safely Neuromuscular Overall Sensation: Within Functional Limits Upper Extremity UE Assessment: Defer to OT evaluation for formal assessment Lower Extremity Lower Extremity LE Assessment: Strength WFL (at least 3+/5) as observed during functional activity;ROM grossly WFL Functional Mobility Bed Mobility Supine to Sit: (Pt already seated at EOB with RN on approach; did not observe or assist with this transfer) Transfers Sit to Stand: Contact guard assistance;cues for hand placement (2 reps total. from EOB with SNUFF PACKING MACHINE OPERATOR, and from commode with RW) Stand to Sit: Contact guard assistance;cues for hand placement Bed to Chair: Minimal assistance;Contact guard assistance (Ziyad with SNUFF PACKING MACHINE OPERATOR bed>commode; CGA with RW commode >chair) Unable to progress further due to: pain Balance Sitting - Static: Supervision Sitting-Dynamic: Supervision Standing-Static: Contact Guard Assistance Standing-Dynamic: Contact Guard Assistance Total time in standing: ~ 2 minutes Gait belt used: Yes Outcome Measures Position after Therapy/Safety Handoff Position after treatment and safety handoff Position after therapy session: Chair Details: RN notified;Call light/ needs within reach Alarms: Chair Alarms Status: Activated and unable to be interfaced with call system Goals Collaborated with: Patient Patient Stated Goal: to decrease pain during mobility Goals to be met by: 04/27/25 Patient will transition from supine to sit: Will tolerate assessment Patient will transition from sit to supine: Will tolerate assessment Patient will transfer from sit to stand: Independent Patient will ambulate: Modified Independent, distance (in feet), with assistive device Ambulation Assistance Device: Rolling walker Distance (in feet): 150' Patient will go up / down stairs: Will tolerate assessment Long-term goal to be met by: 05/04/25 Snf Goal : Pt will ambulate 250' independently without AD Patient/Family Education Educated patient on the role of physical therapy, goals, plan of care, importance of increased activity, discharge recommendations, and transfer training and fall prevention strategies, including need for supervision/ assistance with OOB activity and use of call light; patient verbalized understanding. Handout(s) issued: none. Plan Plan Treatment/Interventions: Endurance training, Patient/family training, Equipment eval/education, Gait training, Therapeutic Activity, Therapeutic Exercise, Stair Training PT Frequency during hospitalization: minimum 3x/week The plan of care and recommendations assesses the patient's and/or caregiver's readiness, willingness, and ability to provide or support functional mobility and ADL tasks as needed upon discharge. Time Start Time: 0835 Stop Time: 09 Time Calculation (min): 26 min Charges $PT Evaluation Mod Complex 30 Min: 1 Procedure Problem List Problem List[1] Past 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 Past 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: Diagnosis [...] MD; Location: ENDOSCOPY; Service: Gastroenterology; Laterality: N/A; LIVER TRANSPLANTATION N/A 04/18/2025 Procedure: LIVING DONOR LIVER TRANSPLANT; Surgeon: Ludin Jose MD; Location: OR; Service: Transplant; Laterality: N/A; UPPER GASTROINTESTINAL ENDOSCOPY 09/21/2022 [1] Patient Active Problem List Diagnosis Alcoholic cirrhosis of liver with ascites (CMS-HCC) Encounter for pre-transplant evaluation for liver transplant High risk surgery, pre-operative cardiovascular examination High risk due to smoking Other ascites Jaundice Fatigue Immunosuppression (CMS-HCC) Other specified abnormal findings of blood chemistry Acute bacterial bronchitis Asthma Alcohol use Alcohol use disorder, severe, dependence (CMS-HCC) Bite Chemical dependency (CMS-HCC) Cholelithiasis without obstruction Contusion of rib Cough End-stage liver disease (CMS-HCC) Cyst of kidney, acquired Disease of gallbladder, unspecified Disease of stomach and duodenum, unspecified Elevated bilirubin Esophageal varices without bleeding (CMS-HCC) Essential (primary) hypertension Exposure to COVID-19 virus Finger sprain Hepatitis C virus infection Hypokalemia Hyponatremia Lesion of liver Low back pain Nausea New onset seizure (CMS-HCC) Opiate dependence, continuous (CMS-HCC) Other diseases of stomach and duodenum Other disorders of bilirubin metabolism Portal hypertension (CMS-HCC) Shingles Splenomegaly, not elsewhere classified Strep throat Strep throat exposure Varicose veins of other specified sites Viral syndrome * Tresa Diaz, PharmD - 04/19/2025 12:38 PM EDT Clinical Pharmacy Progress Note: Pharmacotherapy Stewardship Encounter Date: 04/19/2025 Attending Physician: Ludin Jose MD Subjective: Mindy Wade is a(n) 35 y.o. female presenting to the hospital for <principal problem not specified>. Assessment/Plan: A comprehensive medication evaluation was conducted through the [facility] electronic medical record review on interprofessional rounds for drug-drug, drug-disease, and drug-nutrition interactions appropriate therapeutic indications; dosing; monitoring (e.g., serum concentrations; clinical response; safety/efficacy); and route(s) of administration. Opportunities Indication(s): Patient is on both pantoprazole and famotidine for stress-ulcer prophylaxis and the patient is not on either agent at home. Please consider discontinuing one agent at this time. Route of Administration: Please switch the following medications to enteric formulations as able: acetaminophen, famotidine, fluconazole, methocarbamol, mycophenolate, pantoprazole. Also recommend resuming patients gabapentin when able. Thank you for allowing me to participate in the care of Mindy Wade as a part of the SICU Team. Tresa Diaz, PharmD PGY2 Critical Care Occupational Therapy Technician Preferred contact: [employer] Secure Chat Weekend/On-call pager: [phone] 04/19/2025 12:38 PM Patient Characteristics: Patient Height, Weight, and Body Mass Index Estimated body mass index is 25.96 kg/m?? as calculated from the following: Height as of this encounter: 5' 5 (1.651 m). Weight as of this encounter: 156 lb (70.8 kg). Vital Sign Range (24 Hours) Temp: [98.1 ??F (36.7 ??C)-98.4 ??F (36.9 ??C)] 98.1 ??F (36.7 ??C) Heart Rate: [76-96] 87 Resp: [0-21] 8 BP: (103-121)/(62-83) 103/75 Arterial Line BP: (92-145)/(57-85) 134/70 FiO2: [40 %-96 %] 40 % Allergies Allergies as of 03/14/2025 - Fully Reviewed 03/13/2025 No Active Allergies Allergen Reaction Noted Amoxicillin Rash 09/01/2023 Morphine Rash and Other (See Comments) 12/08/2017 Penicillins Rash and Other (See Comments) 06/06/2015 Lab History Lab Results Component Value Date WBC 13.7 (H) 04/19/2025 WBC 7.8 04/18/2025 HGB 13.0 04/19/2025 HGB 12.9 04/18/2025 PLT 90 (L) 04/19/2025 PLT 69 (L) 04/18/2025 Lab Results Component Value Date NA 139 04/19/2025 K 5.4 (H) 04/19/2025 CL 111 (H) 04/19/2025 CO2 23 04/19/2025 BUN 21 04/19/2025 GLUCOSE 118 (H) 04/19/2025 GLUCOSE 156 (H) 04/18/2025 GLUCOSE 152 (H) 04/18/2025 CALCIUM 7.7 (L) 04/19/2025 MG 2.2 04/19/2025 PHOS 3.7 04/19/2025 Lab Results Component Value Date INR 1.9 (H) 04/19/2025 PROTIME 23.4 (H) 04/19/2025 APTT 28.7 04/18/2025 No results found for: ANTIXAF Lab Results Component Value Date BILITOT 2.7 (H) 04/19/2025 AST 193 (H) 04/19/2025 ALT 144 (H) 04/19/2025 ALBUMIN 2.9 (L) 04/19/2025 ALBUMIN 2.9 (L) 04/19/2025 Lab Results Component Value Date ZXIE25Y 27.1 (L) 04/11/2025 Current Medications Current Facility-Administered Medications Medication Dose Frequency Provider Last Admin acetaminophen 15 mg/kg Q8H Judith Murcia MD Stopped at 04/19/25 0839 AMPicillin IVPB 1 g Q6H Jostin Hess MD Stopped at 04/19/25 0854 aspirin 81 mg Daily with breakfast Jostin Hess MD 81 mg at 04/19/25 0825 [Held by provider] carvediloL 3.125 mg Nightly (2100) Jostin Hess MD dextrose 10% in water 12.5 g Q15 Min PRN Mohan Khan MD Or dextrose 10% in water 25 g Q15 Min PRN Mohan Khan MD famotidine (PF) 20 mg 2 times per day Jostin Hess MD 20 mg at 04/19/25 0825 fluconazole in sodium chloride (iso-osm) 200 mg Q24H Yane Beckwith SANTOSH Wheatley Stopped at 04/19/25 1055 [Held by provider] gabapentin 800 mg TID Jostin Hess MD glucose 12 g Q15 Min PRN Mohan Khan MD heparin 5,000 Units 3 times per day Jostin Hess MD 5,000 Units at 04/19/25 1229 HYDROmorphone 0.5 mg Q2H PRN Judith Murcia MD Or HYDROmorphone 1 mg Q2H PRN Judith Murcia MD 1 mg at 04/19/25 1229 insulin regular 0-12 Units Q6H Scheduled Moe Luis MD methocarbamoL 500 mg Q8H Gloria Chen MD 500 mg at 04/19/25 0830 methylprednisolone (SOLU-medrol) IV 250 mg Once Jostin Hess MD 250 mg at 04/19/25 1233 Followed by [START ON 04/20/2025] methylPREDNISolone sod suc(PF) 125 mg Once Jostin Hess MD Followed by [START ON 04/21/2025] methylPREDNISolone sod suc(PF) 60 mg Once Jostin Hess MD Followed by [START ON 04/22/2025] methylPREDNISolone sod suc(PF) 50 mg Once Jostin Hess MD Followed by [START ON 04/23/2025] predniSONE 40 mg Once Jostin Hess MD Followed by [START ON 04/24/2025] predniSONE 30 mg Once Jostin Hess MD Followed by [START ON 04/25/2025] predniSONE 25 mg Once Jostin Hess MD Followed by [START ON 04/26/2025] predniSONE 20 mg Daily 0900 Jostin Hess MD mycophenolate (CELLCEPT) IVPB 500 mg BID Jostin Hess MD Rate Verify at 04/19/25 1100 pantoprazole (PROTONIX) IV 40 mg DAILY 0600 Mohan Khan MD 40 mg at 04/19/25 0625 Pharmacy to Discontinue all previous insulin and antidiabetic medications Once Ali Robert Khan MD sodium chloride 0.9 % 75 mL/hr Continuous Jostin Hess MD Rate Verify at 04/19/25 1100 tacrolimus 1 mg BID Yane NowakSANTOSH manuel 1 mg at 04/19/25 0830 Recent Serum Drug Concentrations No results found for: VANCOTROUGH , VANCORANDOM , GENTTROUGH , GENTRANDOM , GENTPEAK , TOBRAUNSPEC No results found for: PHENYTOIN , PHENOBARB , VALPROATE , CBMZ No results found for: DIGOXIN No results found for: TACROLMSLCMS , CYCLOSPLCMS Current Diet Diet Orders Diet NPO starting at 04/18 1844 Cosigned by Maninder Gallo PharmD at 04/20/2025 2:12 PM EDT Associated attestation - Maninder Gallo PharmD - 04/20/2025 2:12 PM EDT Pham Gallo PharmD, [facility] Clinical Bi Tester Preferred Contact: [employer] Office: [phone] Pager: [phone] 04/20/25 2:12 PM * Shannan Kumar PharmD - 04/19/2025 10:52 AM EDT Transplant Pharmacy Note Transplant pharmacy is following Mindy Wade during hospital admission. Patient medical record and transplant evaluation has been reviewed and home medications will be reinitiated as appropriate. Transplant pharmacy will perform the following activities related to transplant pharmacotherapy: 1. Ensure appropriate management and titration of immunosuppressive, prophylactic, and other supportive care medications; 2. Monitor for any adverse drug effects; 3. Review the patient's medication profile for any potential drug interaction. Per programmatic guidelines, this patient will receive the following immunosuppressive regimen: Liver Transplant - Immunosuppression guidelines: to be determined Protocol Antibody Steroids Antimetabolite Calcineurin Inhibitor STANDARD Includes all recipients (including SLKT) and all types of donors (including SPLIT) None Taper Initiate PRE-op Mycophenolate mofetil (MMF) 500mg po q 12 Initiate on POD#0 Tacrolimus 2-4mg/dose q 12h Initiate by POD#2 Target Levels: POD #0-30: 10-12 ng/mL POD #31-180: 8-10 ng/mL POD #> 180: 3-8 ng/mL Shannan Kumar PharmSaritaD. Solid Organ Transplant Clinical Specialist Contact via [employer] Secure Chat Preferred * Judith Murcia MD - 04/19/2025 8:57 AM EDT Surgical ICU Consult Note / Progress Note Patient: Mindy Wade Date/Time: 04/19/2025 8:57 AM HPI: Mindy Wade is a 35 y.o. 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 She has been ETOH free for several years. She presents today for living donor liver transplant. Admitted to SICU post op. OR Course (04/18/2025): - Procedure: living donor liver transplant - IVF: 4.5 L crystalloid - Blood Products: Cell Saver 2300 mL, 3u pRBC, 4u FFP, 2u platelets, 1u cryo, Albumin 1500 mL - Vasopressors: levo, vaso, epi - EBL: 7300 mL - UOP: 850 mL - Other: 250 mL NG output, bronchospasm in OR, treated - Last Hgb: 10.2 Home Medications: Albuterol Carvedilol 3.125 mg BID Lasix 60 mg BID Gabapentin 800 TID Spironolactone 150 BID Brief Plan: - Keep NG - DC insulin gtt, HDSSI - POD1 US - Add tacro tonight - PT/OT MEDICAL HISTORY: Past Surgical History: Procedure Laterality Date APPENDECTOMY CYST REMOVAL Right had a cystic lesion under right breast with hematoma and cyst per patient which was removed ESOPHAGOGASTRODUODENOSCOPY N/A 07/28/2024 Procedure: EGD; Surgeon: Mario Ramirez MD; Location: ENDOSCOPY; Service: Gastroenterology; Laterality: N/A; LIVER TRANSPLANTATION N/A 04/18/2025 Procedure: LIVING DONOR LIVER TRANSPLANT; Surgeon: Ludin Jose MD; Location: [facility]; Service: Transplant; Laterality: N/A; UPPER GASTROINTESTINAL ENDOSCOPY 09/21/2022 REVIEW OF SYSTEMS: Review of systems conducted with patient and pertinent positives are noted in HPI. INTERVAL EVENTS 24 HOUR EVENTS: Admitted to SICU after LDLT CONSTITUTIONAL Exam: No acute distress, resting comfortably Temp (24hrs), Av.3 ??F (36.8 ??C), Min:98.1 ??F (36.7 ??C), Max:98.4 ??F (36.9 ??C) Temp: [98.1 ??F (36.7 ??C)-98.4 ??F (36.9 ??C)] 98.3 ??F (36.8 ??C) Heart Rate: [76-96] 88 Resp: [0-21] 6 BP: (103-121)/(62-83) 115/75 Arterial Line BP: (92-145)/(57-85) 92/75 FiO2: [40 %-100 %] 40 % Patient Vitals for the past 4 hrs: BP Pulse Resp SpO2 04/19/25 0700 115/75 88 (!) 6 94 % 04/19/25 0600 121/83 79 (!) 7 96 % 04/19/25 0500 110/77 88 8 94 % A/P: - No active issues HEENT Exam: Normocephalic, atraumatic A/P: - NGT remains to low wall suction - No active issues RESPIRATORY Exam: Extubated overnight to 3L NC, in no respiratory distress Other O2 Device: Patient Vitals for the past 5 hrs: O2 Device O2 Flow Rate (L/min) 04/19/25 0400 Nasal Cannula 3 L/min A/P: #Supplemental O2 requirement #Post-Operative Intubation Requirement - Bronchospasm in OR, treated. Remained intubated post-operatively - Extubated to 3L NC - Wean O2 as able - IS, pulm toilet CARDIOVASCULAR Exam: Regular rate, regular rhythm Vitals: Temp: [98.1 ??F (36.7 ??C)-98.4 ??F (36.9 ??C)] 98.3 ??F (36.8 ??C) Heart Rate: [76-96] 88 Resp: [0-21] 6 BP: (103-121)/(62-83) 115/75 Arterial Line BP: (92-145)/(57-85) 92/75 FiO2: [40 %-100 %] 40 % Hemodynamics: No data found. Cardiac Labs: Lab 04/19/25 0633 04/19/257 04/18/[id number] HSTROP -- 15* -- -- -- LACTATE 1.4 1.5 1.6 2.3* 3.8* Prior Cardiac Data: - Echo (02/01/25): Study Conclusions Left ventricle: The cavity size is normal. Wall thickness is normal. Systolic function is normal. The estimated ejection fraction is 55-60%. - EKG (04/18/25): Prolonged Qtc A/P: #Shock - Goal MAP >65 - Vasopressors: epi, levo, vaso in OR. D/C'd now - Continue to monitor on telemetry - Trend lactate 2.3 --> 1.5 #HTN Home Meds: Carvedilol 3.25 BID - Resume when able #Chest pain - Trop 15 - CXR no pneumothorax - Lactate 1.5 (downtrending from OR) GASTROINTESTINAL Exam: Soft, non-distended, appropriately tender to palpation Drain Output: Output by Drain (mL) 04/17/25 0701 - 04/17/25 1900 04/17/25 190 - 04/18/25 0700 04/18/25 0701 - 04/18/25 1900 04/18/25 1901 - 04/19/25 0700 04/19/25 0701 - 04/19/25 0857 Drain sub hepatic #1 Abdomen Right;Superior 225 Drain hilar #2 Abdomen Right;Superior 275 GI Labs: Lab 04/19/25 0633 04/18/25 23104/18/25221104/18/25 18504/18/25 0603 ALK PHOS 56 55 -- 53 118 ALT 144* 139* -- 127* 25 AST 193* 203* -- 195* 37 BILIRUBIN TOTAL 2.7* 4.5* -- 5.1* 1.5 ALBUMIN 2.9* 2.8* -- 2.7* 3.8 ALBUMINKID 2.9* 2.8* 2.8* 2.7* 3.8 BILIRUBIN DIRECT 1.01* 2.41* -- 2.86* 0.53* TOTAL PROTEIN 4.8* 4.3* -- 4.0* 6.7 A/P: Hx of ETOH, Hep ESLD #S/p LDLT - holding home lasix and aldactone - Lateral drain (sub-hepatic) 100mL output since OR, medial drain (hilar) 75mL output since OR - q6 LFTs #Bowel Regimen - Last BM: 0 @04/18/2025 1826 (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 Current Diet: Diet/Nutrition Orders Diet NPO Frequency: Effective Now Number of Occurrences: Until Specified Prealbumin: A/P: #Risk for Malnutrition - NPO per primary team FLUIDS / ELECTROLYTES Labs: Lab 04/19/25 0633 04/18/25 2319 04/18/25 2212 04/18/25 1859 04/18/25 0603 SODIUM 139 139 139 139 138 POTASSIUM 5.4* 3.7 3.6 3.6 3.3* CHLORIDE 111* 109 110 108 104 CO2 23 23 22 20* 26 BUN 21 14 14 11 12 CREATININE 0.76 0.65 0.65 0.66 0.77 GLUCOSE 118* 156* 152* 163* 89 CALCIUM 7.7* 7.8* 7.8* 8.1* 9.0 MAGNESIUM 2.2 2.2 2.2 2.2 2.2 PHOSPHORUS 3.7 3.5 3.5 3.7 3.8 EGFR >90 >90 >90 >90 >90 Admission Wt: Weight: 156 lb (70.8 kg) Current Wt: Weight: 156 lb (70.8 kg) Intake/Output: Date 04/18/25699 - 04/19/25 0659 04/19/25 07 - 04/20/25 0659 Shift 7882-1492 0962-8383 2570-3007 24 Hour Total [id number] 0604-8548 7544-8906 24 Hour Total INTAKE P.O. 0 0 P.O. 0 0 I.V.(mL/kg) 3000(42.4) 1798.7(25.4) 599.4(8.5) 5398.1(76.3) Volume (mL) Insulin 5.8 15.9 21.7 Volume (mL) Propofol 23.9 1 24.9 Volume (mL) Fentanyl 54.1 1.1 55.2 Volume (mL) Vasopressin 0 0 Volume (mL) Norepinephrine 0 0 Volume (mL) (electrolyte-R (pH 7.4) (NORMOSOL-R pH 7.4) IV solution) 3000 1500 4500 Volume (mL) (sodium chloride 0.9 % IV infusion) 215 581.4 796.4 Blood 2750 2450 5200 Cell Saver - Volume 2300 2300 Volume (Transfuse RBC Transfusion Rate: Per dept routine) 350 350 Volume (Transfuse RBC Transfusion Rate: Per dept routine) 350 350 Volume (Transfuse Fresh Frozen Plasma Transfusion Rate: Per dept routine) 300 300 Volume (Transfuse RBC Transfusion Rate: Per dept routine) 350 350 Volume (Transfuse Fresh Frozen Plasma Transfusion Rate: Per dept routine) 300 300 Volume (Transfuse Fresh Frozen Plasma Transfusion Rate: Per dept routine) 300 300 Volume (Transfuse Platelets) 250 250 Volume (Transfuse Platelets) 250 250 Volume (Transfuse Fresh Frozen Plasma Transfusion Rate: Per dept routine) 300 300 Volume (Transfuse Cryoprecipitate) 75 75 Volume (Transfuse Cryoprecipitate) 75 75 IV Piggyback 2098.3 319.2 306.8 2724.3 Volume (mL) (methylPREDNISolone sodium succinate (SOLU-medrol) 500 mg in sodium chloride 0.9 % 100 mL IVPB) 100 100 Volume (mL) (acetaminophen (OFIRMEV) IV infusion 1,000 mg) 100 100 Volume (mL) (potassium chloride (KCl)/Sterile water 50 mL 20 mEq/50 mL IVPB 20 mEq) 76 76 Volume (mL) (vancomycin (VANCOCIN) 1,500 mg in sodium chloride 0.9 % 250 mL Intc1Xba) 298.3 298.3 Volume (mL) (ciprofloxacin (CIPRO) 400 mg in dextrose 5% 200 mL IVPB) 200 200 400 Volume (mL) (albumin human bottle 5%) 1500 1500 Volume (mL) (AMPicillin 1 g in sodium chloride 0.9% 100 mL IVPB ([id number])) 100 100 200 Volume (mL) (mycophenolate (CELLCEPT) 500 mg in dextrose 5% in water (D5W) 50 mL IVPB) 19.2 30.8 50 Shift Total(mL/kg) 7848.3(110.9) 4567.9(64.6) 906.2(12.8) 47441.4(188.3) OUTPUT Urine(mL/kg/hr) 500(0.9) 550(1) 147(0.3) 1197(0.7) 40 40 Urine 500 350 850 Output (mL) (IUC (Ybarra) Non-latex;Straight-tip 16 Fr.) 200 147 347 40 40 Emesis/NG output 0 0 Drainage Output (mL) (NG/OG Tube Nasogastric Left nostril) 0 0 Drains 175 200 375 125 125 Output (mL) (Drain sub hepatic #1 Abdomen Right;Superior) 100 100 200 25 25 Output (mL) (Drain hilar #2 Abdomen Right;Superior) 75 100 175 100 100 Other 350 350 Other 350 350 Stool Stool Occurrence 0 x 0 x Blood 7600 7600 Est Blood Loss 7600 7600 Shift Total(mL/kg) 500(7.1) 8675(122.6) 347(4.9) 9522(134.6) 165(2.3) 165(2.3) Weight (kg) 70.8 70.8 70.8 70.8 70.8 70.8 70.8 70.8 Intake/Output Summary (Last 24 hours) at 04/19/2025 0857 Last data filed at 04/19/2025 0800 Gross per 24 hour Intake 03071.1 ml Output 9687 ml Net 3137.1 ml UOP: 1,237 mL/24 hrs IVF: sodium chloride 0.9 %, Last Rate: 75 mL/hr (04/19/25 0600) A/P: #Fluid Balance - Goal UOP 0.5 mL/kg/hr - Strict I/Os #Electrolytes - Hand replete electrolytes - q6 renal, Mg - Replaced K - Recheck PM K RENAL Labs: Lab 04/19/25 0633 10/231804/18/25221104/18/25 18504/18/25 0603 CO2 23 23 22 20* 26 BUN 21 14 14 11 12 CREATININE 0.76 0.65 0.65 0.66 0.77 EGFR >90 >90 >90 >90 >90 Lab 04/18/25 2246 04/18/251858 PH ARTERIAL 7.38 7.40 PCO2 ARTERIAL 38 33* PO2 ARTERIAL 136* 158* HCO3 ARTERIAL 23 22 BASE EXCESS ARTERIAL -2.3* -3.6* % HBO2 96.6 95.1 O2 SATURATION ARTERIAL 100 100 Urine Lytes: No results for input(s): NAUR in the last 72 hours. Invalid input(s): CRUR 24 hour urine output 1,237 mL A/P: - Baseline Cr: 0.6 - Daily Renal/Mg SKIN / MUSCULOSKELETAL Exam: Normal ROM, no rashes A/P: - No active issues HEMATOLOGIC Labs: Lab 04/19/2563204/18/25231804/18/25185804/18/25 1700 04/18/25 1600 04/18/25 1410 04/18/25 1352 04/18/25 0917 04/18/25 0603 WBC 13.7* 7.8 8.7 -- -- -- 7.2 -- 3.7* HEMATOCRIT 38.1 37.1 35.8 -- -- -- 29.6* -- 34.5* HCTPOC -- -- -- 28.0* 28.0* < > -- < > -- HEMOGLOBIN 13.0 12.9 12.3 -- -- -- 10.2* -- 11.7 HGBPOC -- -- -- 9.6* 9.6* < > -- < > -- PLATELETS 90* 69* 84* -- -- -- 80* -- 100* < > = values in this interval not displayed. Lab 04/19/25 0633 04/18/25231804/18/259 04/18/25 1654 04/18/25 1555 INR POC -- -- -- 1.6* 1.4 INR 1.9* 1.8* 1.8* -- -- Lab 04/18/25185804/18/25 1352 04/18/25 0603 FIBRINOGEN LEVEL 249 130* 283 A/P: #Acute Blood Loss Anemia - q6 CBC - Transfuse pRBC for Hgb <7 - No resuscitation needed overnight #Coagulopathy - Trend INR, TEG PRN active bleeding - Transfuse FFP for R Time >55 or INR >1.7 and bleeding - Transfuse cryoprecipitate for Alpha Angle <55 or low fibrinogen - Transfuse platelets for MA <55 ENDOCRINE Glucose Range: Lab 04/19/25 0833 04/19/25 0633 04/19/25 0624 04/19/25 0425 04/19/25 0421 04/19/25 0217 04/19/25 0023 04/18/25 2319 04/18/25 2212 04/18/25 2209 04/18/25 2111 04/18/25 2005 04/18/25 1859 04/18/25 1700 04/18/25 1600 04/18/25 1506 04/18/25 1410 04/18/25 1339 04/18/25 1256 04/18/25 1211 04/18/25 1116 04/18/25 0917 04/18/25 0603 POC GLU MONITORING DEVICE 105* -- 113* 120* 89 120* 119* -- -- 145* 141* < > 155* -- -- -- ---- -- -- -- -- -- POCGLUART -- -- -- -- -- -- -- -- -- -- -- -- -- 136* 133* 144* 158* 124* 102* 126* 116* < > -- GLUCOSE -- 118* -- -- -- -- -- 156* 152* -- -- -- 163* -- -- -- -- -- -- -- -- -- 89 < > = values in this interval not displayed. Hgb A1c: Lab Results Component Value Date HGBA1C 4.4 04/11/2025 Insulin Regimen: Insulin Orders Dose Frequency Start End insulin (HumuLIN R) infusion - TITRATABLE NURSING PROTOCOL (HYPERGLYCEMIA) 0-28 Units/hr Rslfzbqqei70/27/2025 04/19/2025 Admin Instructions: FOR O.R. USE only. Titrate in O.R. for blood glucose management HIGH ALERT MEDICATION Route: Intravenous A/P: #Hyperglycemia - no hx of DM - Insulin gtt at 2u/hr - DC and start HDSSI INFECTIOUS DISEASE Tmax: Temp (24hrs), Av.3 ??F (36.8 ??C), Min:98.1 ??F (36.7 ??C), Max:98.4 ??F (36.9 ??C) WBC Trend: Lab 04/19/25 0633 04/18/25 2319 04/18/25 1859 04/18/25 1352 04/18/25 0603 WBC 13.7* 7.8 8.7 7.2 3.7* Current Abx: Current Anti-Infectives Dose Frequency Start End AMPicillin 1 g in sodium chloride 0.9% 100 mL IVPB ([id number]) 1 g Every 6 hours 04/18/2025 04/20/2025 Admin Instructions: Dosage may need to be adjusted for renal dysfunction. Full dose is 1g IV q6h Use Cadg5Vsg Adapter - Mix Thoroughly Before Administration Notes to Pharmacy: On drive thru order taker estimated creatinine clearance is 100.6 mL/min (based on SCr of 0.77 mg/dL). Route: Intravenous Linked Group 1: Placed in And Linked Group cefTRIAXone (ROCEPHIN) 2 g in sodium chloride 0.9% 20 mL IV Push (Completed) 2 g Once 04/19/2025 04/19/2025 Admin Instructions: Give 24 hours after pre-op dose. ADMINISTER IV PUSH. Infuse over 5 minutes. Draw up 20 mL Sodium Chloride 0.9% into empty syringe. Inject 20 mL into vial of Ceftriaxone. Shake well. Withdraw volume into syringe and administer immediately. Route: Intravenous Linked Group 1: Placed in And Linked Group ciprofloxacin (CIPRO) 400 mg in dextrose 5% 200 mL IVPB (Completed) 400 mg Once 04/18/2025 04/18/2025 Admin Instructions: Begin infusion 120 minutes prior to incision PROTECT FROM LIGHT. Route: Intravenous Linked Group 2: Placed in And Linked Group fluconazole (DIFLUCAN) 200 mg in iso-osm sodium chloride 100 mL 200 mg Every 24 hours 04/19/2025 -- Admin Instructions: DO NOT REFRIGERATE. Route: Intravenous vancomycin (VANCOCIN) 1,500 mg in sodium chloride 0.9 % 250 mL [id number] (Completed) 20 mg/kg ?? 71.6 kg Once 04/18/2025 04/18/2025 Admin Instructions: Begin infusion 120 minutes prior to incision Use Kdow6Leu Adapter - Mix Thoroughly Before Administration Route: Intravenous Linked Group 2: Placed in And Linked Group A/P: #Antibiotics - Perioperative Abx: vanc, ampicillin, ceftriaxone, cipro #Immunosuppression Steroid taper Per TXP team NEUROLOGIC Exam: No focal signs, moving all four extremities GCS: Amanda Coma Scale Score: 11 (Eye Openin, Best Verbal Response: 1 (ett), Best Motor Response: 6) No data found. A/P: #Sedation/Analgesia - Sedation weaned - Tylenol scheduled, Dilaudid prn PSYCHIATRIC Exam: Not agitated CAM: Overall CAM-ICU : (giuliano) RASS: Gomez Agitation Sedation Scale: -1 A/P: NIRAV ICU CHECKLIST Diet: Diet/Nutrition Orders Diet NPO Frequency: Effective Now Number of Occurrences: Until Specified Bowel Reg: Held GI PPx: Pepcid DVT PPx: Current Anticoagulation (Only) aspirin chewable tablet 81 mg heparin (porcine) injection 5,000 Units Drips: sodium chloride 0.9 % 75 mL/hr (04/19/25 0600) LDA: Patient Lines/Drains/Airways Status Active Epidural Line / PICC Line / PIV Line / ART Line / Line / CVC Line Name Placement date Placement time Site Days Peripheral IV 04/18/25 Left;Proximal Antecubital 04/18/25 0630 Antecubital 1 Peripheral IV 04/18/25 Anterior;Right Forearm 04/18/25 1832 Forearm less than 1 Peripheral IV 04/18/25 Left;Posterior Hand 04/18/25 1832 Hand less than 1 Arterial Line 04/18/25 Left Radial 04/18/25 1021 Radial less than 1 Introducer 04/18/25 04/18/25 0830 -- 1 DC A line, central line PT/OT: Pending - PT Recs: - OT Recs: - GARNISHMENT SPECIALIST Recs: Dispo: Remain in SICU Code Status: Full Code Signed: JUDITH MURCIA MD 04/19/2025, 8:57 AM Cosigned by Jaydon Brandt MD at 04/20/2025 12:41 PM EDT Associated attestation - Jaydon Brandt MD - 04/20/2025 12:41 PM EDT ICU ATTENDING NOTE: This patient was seen by the Surgical ICU team and the Transplant team; I have personally seen thispatient, examined this patient, and my assessment and plan for coordinated critical care managementreveals: I note the following interval events: 35 y.o. 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 She has been ETOH free for several years. She presents today for living donor liver transplant. Admitted to SICU post op. Hospital course 04/18/25 OLT living donor Events over 24 hours TXP yesterday Plan for today Recheck K D/c insulin gtt D/c a line D/c central line PT/OT HEENT: No Acute Issues RESPIRATORY: Atelectasis/pulmonary collapse Hypoxia - Extubated overnight. Wean supplemental O2 Vent Mode: Spont PS/PEEP FiO2: [40 %-100 %] 40 % S RR: [16] 16 S VT: [350 mL] 350 mL PEEP/CPAP: [0 cm H20-7 cm H20] 5 cm H20 Lab Results Component Value Date PHART 7.38 04/18/2025 PCO2 38 04/18/2025 PO2ART 136 (H) 04/18/2025 [id number] 23 04/18/2025 BEART -2.3 (L) 04/18/2025 [id number] 96.6 04/18/2025 [id number] 100 04/18/2025 P:F ratio = 340 CARDIOVASCULAR: Hypertension, unspecified Shock resolved. Was likely hypovolemic with some element of distributive. - off pressors - hold home carvedilol, may need IV metoprolol if gets tachycardic. NUTRITION: Signs of malnutrition by BMI or weight loss on admission? No No acute issues Diet: NPO NGT GASTROINTESTINAL: Cirrhosis, alcoholic - s/p living donor liver transplant 04/18 - trend labs and output - continue NGT, NPO - IVF - H2B - PRN zofran - steroid taper, cellcept, tacro per TXP Ultrasound today FLUIDS / ELECTROLYTES: Hyperkalemia Hypocalcemia - trend labs - replace electrolytes as indicated No need to shift at this time. Cont NS @ 75 cc/hr. RENAL: No acute issues - trend labs and UOP SKIN/MUSCULOSKELETAL: No acute issues HEMATOLOGIC: Coagulopathy, unspecified Thrombocytopenia, unspecified - trend labs - transfuse as indicated per transplant ENDOCRINE: Hyperglycemia - on insulin gtt. Currently paused. Will stop and start HDSSI. INFECTIOUS DISEASE: Leukocytosis - mary op abx, leukocytosis reactive. NEUROLOGIC: No acute issues PSYCHIATRIC, PAIN, SEDATION: Pain Management - MMPC. ACTIVE LINES: Patient Lines/Drains/Airways Status Active Epidural Line / PICC Line / PIV Line / ART Line / Line / CVC Line Name Placement date Placement time Site Days Peripheral IV 04/18/25 Left;Proximal Antecubital 04/18/25 0630 Antecubital 1 Peripheral IV 04/18/25 Anterior;Right Forearm 04/18/25 1832 Forearm less than 1 Peripheral IV 04/18/25 Left;Posterior Hand 04/18/25 1832 Hand less than 1 Arterial Line 04/18/25 Left Radial 04/18/25 1021 Radial less than 1 Introducer 04/18/25 04/18/25 0830 -- 1 Central Line? Yes - Reason: Hemodynamic monitoring Arterial line? Yes Will remove arterial line and mac central line. ACTIVE DRAINS: Urinary Catheter? Ybarra - Reason: Adequate I/O DVT Prophylaxis: Subcutaneous Heparin GI Prophylaxis: H2 Nataly DISPOSITION: SICU I saw and examined the patient and discussed the case with the resident and agree with the findingsand plan as documented in the resident's note. Total time delivering critical care for this patient including direction of initial assessment, evaluation, development of a plan, discussion with consultants, and family but excluding time spent performing any associated procedures was 31 minutes on 04/19/2025. Jaydon Brandt MD Section of General Surgery Divisions of Trauma, Acute Care Surgery, and Surgical Critical Care [facility] Academic Office [phone] For Transfers, call [phone] * Giovanny Louis MD - 04/19/2025 6:08 AM EDT Transplant Surgery Progress Note Name: Mindy Wade CSN: [id number] Date: 04/19/2025 6:09 AM OR Date: 04/18/2025 Subjective 1 Day Post-Op This am, complaining of post surgical pain and dry mouth due to NPO. Otherwise, NAEO. Extubated to 3L NC, off pressors Complained of chest pain yesterday with negative cardiac workup Objective Vitals: Temp: [96.9 ??F (36.1 ??C)-98.4 ??F (36.9 ??C)] 98.3 ??F (36.8 ??C) Heart Rate: [76-96] 76 Resp: [0-21] 9 BP: (99-120)/(62-80) 120/79 Arterial Line BP: (94-145)/(57-85) 145/71 FiO2: [40 %-100 %] 40 % I/O: Date 04/18/25699 - 04/19/2565804/19/25 07 - 04/20/25 0659 Shift 9604-4073 7784-7447 1352-2240 24 Hour Total 7795-5217 2033-1621 7521-8651 24 Hour Total INTAKE P.O. 0 0 P.O. 0 0 I.V.(mL/kg) 3000(42.4) 1798.7(25.4) 445(6.3) 5243.7(74.1) Volume (mL) Insulin 5.8 11.9 17.7 Volume (mL) Propofol 23.9 1 24.9 Volume (mL) Fentanyl 54.1 1.1 55.2 Volume (mL) Vasopressin 0 0 Volume (mL) Norepinephrine 0 0 Volume (mL) (electrolyte-R (pH 7.4) (NORMOSOL-R pH 7.4) IV solution) 3000 1500 4500 Volume (mL) (sodium chloride 0.9 % IV infusion) 215 431 646 Blood 2750 2450 5200 Cell Saver - Volume 2300 2300 Volume (Transfuse RBC Transfusion Rate: Per dept routine) 350 350 Volume (Transfuse RBC Transfusion Rate: Per dept routine) 350 350 Volume (Transfuse Fresh Frozen Plasma Transfusion Rate: Per dept routine) 300 300 Volume (Transfuse RBC Transfusion Rate: Per dept routine) 350 350 Volume (Transfuse Fresh Frozen Plasma Transfusion Rate: Per dept routine) 300 300 Volume (Transfuse Fresh Frozen Plasma Transfusion Rate: Per dept routine) 300 300 Volume (Transfuse Platelets) 250 250 Volume (Transfuse Platelets) 250 250 Volume (Transfuse Fresh Frozen Plasma Transfusion Rate: Per dept routine) 300 300 Volume (Transfuse Cryoprecipitate) 75 75 Volume (Transfuse Cryoprecipitate) 75 75 IV Piggyback 2098.3 319.2 306.8 2724.3 Volume (mL) (methylPREDNISolone sodium succinate (SOLU-medrol) 500 mg in sodium chloride 0.9 % 100 mL IVPB) 100 100 Volume (mL) (acetaminophen (OFIRMEV) IV infusion 1,000 mg) 100 100 Volume (mL) (potassium chloride (KCl)/Sterile water 50 mL 20 mEq/50 mL IVPB 20 mEq) 76 76 Volume (mL) (vancomycin (VANCOCIN) 1,500 mg in sodium chloride 0.9 % 250 mL [id number]) 298.3 298.3 Volume (mL) (ciprofloxacin (CIPRO) 400 mg in dextrose 5% 200 mL IVPB) 200 200 400 Volume (mL) (albumin human bottle 5%) 1500 1500 Volume (mL) (AMPicillin 1 g in sodium chloride 0.9% 100 mL IVPB ([id number])) 100 100 200 Volume (mL) (mycophenolate (CELLCEPT) 500 mg in dextrose 5% in water (D5W) 50 mL IVPB) 19.2 30.8 50 Shift Total(mL/kg) 7848.3(110.9) 4567.9(64.6) 751.8(10.6) 88580(186.1) OUTPUT Urine(mL/kg/hr) 500(0.9) 550(1) 117 1167 Urine 500 350 850 Output (mL) (IUC (Ybarra) Non-latex;Straight-tip 16 Fr.) 200 117 317 Emesis/NG output 0 0 Drainage Output (mL) (NG/OG Tube Nasogastric Left nostril) 0 0 Drains 175 200 375 Output (mL) (Drain sub hepatic #1 Abdomen Right;Superior) 100 100 200 Output (mL) (Drain hilar #2 Abdomen Right;Superior) 75 100 175 Other 350 350 Other 350 350 Stool Stool Occurrence 0 x 0 x Blood 7600 7600 Est Blood Loss 7600 7600 Shift Total(mL/kg) 500(7.1) 8675(122.6) 317(4.5) 9492(134.1) Weight (kg) 70.8 70.8 70.8 70.8 70.8 70.8 70.8 70.8 Drain Output and Description: - Perihepatic Drain 200 mL (SS) - Hilar Drain 175 mL (SS) - NG: minimal Physical Exam: Gen: NAD, alert CV: RRR Resp: nonlabored breathing Abd: Soft, NT/ND, Wound: c/d/i Ext: warm and well perfused, STEPHANY : ybarra in place Labs: Recent Labs 04/18/25 1352 04/18/25 1410 04/18/25 1700 04/18/25185804/18/25 2319 WBC 7.2 -- -- 8.7 7.8 HGB 10.2* < > 9.6* 12.3 12.9 HCT 29.6* < > 28.0* 35.8 37.1 PLT 80* -- -- 84* 69* < > = values in this interval not displayed. Recent Labs 04/18/25 18504/18/25221104/18/25 2319 NA 139 139 139 K 3.6 3.6 3.7 CL 108 110 109 CO2 20* 22 23 BUN 11 14 14 CREATININE 0.66 0.65 0.65 GLUCOSE 163* 152* 156* CALCIUM 8.1* 7.8* 7.8* MG 2.2 2.2 2.2 PHOS 3.7 3.5 3.5 Recent Labs 04/18/25 1256 04/18/25 1339 04/18/25 1410 04/18/25 1506 04/18/25 1600 04/18/25 1700 04/18/25 18504/18/25 2111 04/18/25 2209 04/19/25 0023 04/19/25 0217 04/19/25 0421 04/19/25 0425 POCGLU 102* 124* 158* 144* 133* 136* -- -- -- -- -- -- -- POCGMD -- -- -- -- -- -- < > 141* 145* 119* 120* 89 120* < > = values in this interval not displayed. Recent Labs 04/18/25 0603 04/18/25 1859 04/18/25 2212 04/18/25 2319 AST 37 195* -- 203* ALT 25 127* -- 139* BILITOT 1.5 5.1* -- 4.5* BILIDIRECT 0.53* 2.86* -- 2.41* ALKPHOS 118 53 -- 55 ALBUMIN 3.8 3.8 2.7* 2.7* 2.8* 2.8* 2.8* Recent Labs 04/18/25 1352 04/18/25 1859 04/18/252318 INR 1.9* 1.8* 1.8* PROTIME 23.1* 21.5* 21.8* Imaging: X-ray Portable Chest Result Date: 04/19/2025 EXAM: XR PORTABLE CHEST INDICATION: postop TECHNIQUE: 1 view of the chest. COMPARISON: 6 hours prior. FINDINGS: Medical Devices: * Right internal jugular vein terminating over the SVC. * Enteric suction tube terminating over the expected location of the gastric fundus. Apparent kinking of the NG tube at the level of sidehole persists. * Right upper quadrant surgical drain and surgical sergio. * Interval extubation. Heart and Mediastinum: Unchanged. Lungs and Pleura: Low lung volumes with similar streaky left basilar airspace opacities. No pleural effusion or pneumothorax. Bones and Soft tissues: Unchanged. IMPRESSION: Interval extubation. Otherwise no significant interval change. Approved by Mario Busch MD on 04/19/2025 3:16 AM EDT I have personally reviewed the images and I agree with this report. Report Verified by: Vipul Gannon MD at 04/19/2025 3:36 AM EDT XR Portable Feeding Tube Check Result Date: 04/18/2025 EXAM: XR PORTABLE FEEDING TUBE CHECK INDICATION: NG tube placement TECHNIQUE: Limited semiupright AP view chest as abdomen for NG tube placement. COMPARISON: Images done earlier today. FINDINGS: NG tube is seen crossing midline diaphragm, tip projecting over left upper abdomen, likely in the gastric fundus, retracted compared to prior exam. There is apparent kinking of the NG tube at the level of sidehole. IMPRESSION: 1. NG tube tip projects over the left upper abdomen, likely in the gastric fundus with apparent kinking at the level of sidehole. Report Verified by: Vipul Gannon MD at 04/18/2025 10:00 PM EDT X-ray Portable Chest Result Date: 04/18/2025 EXAM: XR PORTABLE CHEST INDICATION: Line Placement TECHNIQUE: 1 view of the chest. COMPARISON: 2024. FINDINGS: Medical Devices: * Endotracheal tube projects over the trachea with the tip approximately 6.5 cm above the tata. * Tip of the right IJ approach central line projects over the SVC. * NG tube is seen crossing midline diaphragm, tip projecting over the right upper abdomen in peripyloric location. * Surgical sergio and drain projects over the right upper abdomen. Heart and Mediastinum: Cardiomediastinal silhouette is within normal limits. Lungs and Pleura: Minimal left basilar atelectasis. Lungs are otherwise clear. No pleural effusions or pneumothorax. Bones and soft tissues: No acute abnormalities. IMPRESSION: 1. No acute cardiopulmonary abnormality. 2. Support apparatus as detailed. Report Verified by: Vipul Gannon MD at 04/18/2025 9:12 PM EDT Current Medications: Scheduled Meds: acetaminophen 15 mg/kg Intravenous Q8H cefTRIAXone (ROCEPHIN) IVPB 2 g Intravenous Once And AMPicillin IVPB 1 g Intravenous Q6H aspirin 81 mg Oral Daily with breakfast [Held by provider] carvediloL 3.125 mg Oral Nightly (2099) chlorhexidine 15 mL Mouth/Throat BID famotidine (PF) 20 mg Intravenous 2 times per day [Held by provider] gabapentin 800 mg Oral TID heparin 5,000 Units Subcutaneous 3 times per day methylprednisolone (SOLU-medrol) IV 250 mg Intravenous Once Followed by [START ON 04/20/2025] methylPREDNISolone sod suc(PF) 125 mg Intravenous Once Followed by [START ON 04/21/2025] methylPREDNISolone sod suc(PF) 60 mg Intravenous Once Followed by [START ON 04/22/2025] methylPREDNISolone sod suc(PF) 50 mg Intravenous Once Followed by [START ON 04/23/2025] predniSONE 40 mg Oral Once Followed by [START ON 04/24/2025] predniSONE 30 mg Oral Once Followed by [START ON 04/25/2025] predniSONE 25 mg Oral Once Followed by [START ON 04/26/2025] predniSONE 20 mg Oral Daily 0900 mycophenolate (CELLCEPT) IVPB 500 mg Intravenous BID pantoprazole (PROTONIX) IV 40 mg Intravenous DAILY 0600 Pharmacy to Discontinue all previous insulin and antidiabetic medications MISCELLANEOUS Once Continuous Infusions: fentanyl (SUBLIMAZE) IV infusion Stopped (04/18/252205) insulin regular in 0.9 % sodium chloride 2 Units/hr (04/19/25399) norepinephrine Stopped (04/18/251908) propofol Stopped (04/18/252205) sodium chloride 0.9 % 75 mL/hr (04/19/25399) vasopressin Stopped (04/18/251909) PRN Meds: dextrose 10% in water OR dextrose 10% in water, fentanyl (SUBLIMAZE) IV infusion AND fentaNYL, glucose, HYDROmorphone OR HYDROmorphone Assessment/Plan Mindy Wade is a 35 y.o. 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 Plan today: - Keep NG - wean off insulin drip per SICU - follow-up POD 1 US - adding Tac tonight - HEENT: no issues Resp: on 3L NC - IS/Volume Expansion Protocol - PRN albuterol/duonebs - SpO2 > 92% - Wean O2 as able CV: HDS off pressors - MAP > 65 - Prior cardiac Hx (none) - Resume home meds if hypertensive Nutrition/GI: - POD s/p OLT - POD1 Liver US pending - NG to ILWS - LFTs stable - NPO Fluid/Electrolytes/Renal: - UOP 1.[address] - Strict I/O - Maintain Ybarra - Electrolytes replacement as needed - Daily Renal/Mg - mIVF @ 75 Skin/MSK: no issues - PT/OT consulted - Advising: pending Heme: - Hgb stable - Transfuse Hgb < 7 - TEG/PT-INR PRN ID: Afebrile - Mary-operative abx: Immunosuppression: - Induction: - Maintenance: - Cellcept 500 mg BID - Prednisone Taper: - Tacrolimus: initiation tonight, daily FKs Endocrine: - Home medications: none - 24 hour insulin requirement: 21 - Insulin gtt @ 2 - wean insulin drip per SICU - BG Goal < 180 - [facility] Neuro: - [facility]aud[facility] 0.5-1 [facility]: -Home meds: n/a PPX: CARIE 5000 units TID, SCD, PPI Dispo: SICU GIOVANNY LOUIS MD Transplant Surgery [facility] Surgery Resident Cosigned by Alejandra Wilson MD at 04/20/2025 9:20 PM EDT Associated attestation - Alejandra Wilson MD - 04/20/2025 9:20 PM EDT This patient was seen and examined by the STEVEN/Resident team on 04/19/25. I have discussed the patient's care with the team. Immunosuppression reviewed and discussed with multidisciplinary team. I have personally seen and examined this patient on 04/19/25. Alejandra Wilson MD PhD Transplant Surgery * Mi Noel RRT - 04/18/2025 11:31 PM EDT Patient extubated to 3 liter nasal cannula per MD order. Will continue to monitor. * Mi Noel RRT - 04/18/2025 10:51 PM EDT 04/18/25 2246 Vent Information Vent Mode Spont PEEP FiO2 (set) 40 FiO2 40 % B = Both Spontaneous Awakening and Breathing Trials Total RSBI 11 Vent Settings/Readings Resp Rate (Actual) 7 Vt Exp 595 mL Spont TV 648 mL Ve 5.44 L/min PIP Observed 6.4 cm H2O Mean Airway Pressure 5.6 cmH20 PEEP/CPAP 5 cm H20 Insp Rise Time (%) 0.2 % Dynamic Compliance (L/cm H2O) 99.6 L/cm H2O Airway Resistance 7.5 cmH20 Pulse Oximetry/ETCO2 SpO2 98 % Patient tolerated SBT well. An ABG was drawn upon conclusion of the trial and the sample was sent to lab. documented in this encounter H&P Notes * Mike Ventura MD - 04/23/2025 5:23 AM EDT [facility] PRE-SEDATION ASSESSMENT, HISTORY & PHYSICAL Date: 04/23/2025 Mindy Wade is a 35 y.o. year old female Pre-Procedure Diagnosis/Procedure Indication: Melena, coffee-ground emesis Planned Procedure: EGD +/- push enteroscopy NPO for solids 6-8 hours, NPO for liquids 6-8 hours Past 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 Past 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: Diagnosis Date Abdominal hernia 02/21/2023 Alcoholic hepatitis (CMS-HCC) Anxiety Ascites Chronic diarrhea 08/21/2022 Cirrhosis (CMS-HCC) Cystitis Depression Hepatitis C Difficult intubation Unanswered Problem List[1] Past Surgical History Past Surgical History: Procedure Laterality Date APPENDECTOMY CYST REMOVAL Right had a cystic lesion under right breast with hematoma and cyst per patient which was removed ESOPHAGOGASTRODUODENOSCOPY N/A 07/28/2024 Procedure: EGD; Surgeon: Mario Ramirez MD; Location: ENDOSCOPY; Service: Gastroenterology; Laterality: N/A; LIVER TRANSPLANTATION N/A 04/18/2025 Procedure: LIVING DONOR LIVER TRANSPLANT; Surgeon: Ludin Jose MD; Location: OR; Service: Transplant; Laterality: N/A; UPPER GASTROINTESTINAL ENDOSCOPY 09/21/2022 Medications Home Medications Medication Sig Taking? Last Dose carvediloL (COREG) 3.125 MG tablet Take 1 tablet (3.125 mg total) by mouth 2 times a day with meals. Patient taking differently: Take 1 tablet (3.125 mg total) by mouth at bedtime. Yes 04/17/2025 Bedtime furosemide (LASIX) 20 MG tablet TAKE 3 TABLETS(60 MG) BY MOUTH TWICE DAILY Yes 04/17/2025 Morning gabapentin (NEURONTIN) 800 MG tablet Take 1 tablet (800 mg total) by mouth 3 times a day. Yes 04/17/2025 Bedtime acetaminophen (TYLENOL) 325 MG tablet Take 3 tablets (975 mg total) by mouth every 8 hours. aspirin 81 MG chewable tablet Chew 1 tablet (81 mg total) by mouth daily. calcium-vitamin D 500 mg-5 mcg (200 unit) per tablet Take 1 tablet by mouth 2 times a day with meals. enoxaparin (LOVENOX) 40 mg/0.4 mL Syrg Inject 0.4 mLs (40 mg total) subcutaneously daily. famotidine (PEPCID) 20 MG tablet Take 1 tablet (20 mg total) by mouth 2 times a day. fluconazole (DIFLUCAN) 200 MG tablet Take 1 tablet (200 mg total) by mouth daily for 30 days. mycophenolate (CELLCEPT) 250 mg capsule Take 2 capsules (500 mg total) by mouth 2 times a day. naloxone (NARCAN) 4 mg/actuation Oolitic Apply 1 spray in one nostril if needed. Call 911. May repeat dose in other nostril if no response in 3 minutes. ondansetron (ZOFRAN-ODT) 8 MG disintegrating tablet Take 1 tablet (8 mg total) by mouth every 8 hours as needed for Nausea. 04/15/2025 polyethylene glycol (GLYCOLAX) 17 gram/dose powder Mix 1 capful (17 g) in 8 oz of liquid and drink by mouth daily as needed (Constipation). predniSONE (DELTASONE) 5 MG tablet Take 4 tablets (20 mg total) by mouth daily. senna-docusate (SENNOSIDES-DOCUSATE SODIUM) 8.6-50 mg per tablet Take 1 tablet by mouth at bedtime as needed for Constipation. sulfamethoxazole-trimethoprim (BACTRIM) 400-80 mg per tablet Take 1 tablet by mouth daily. tacrolimus (PROGRAF) 1 MG capsule Take 10 capsules (10 mg total) by mouth 2 times a day. valGANciclovir (VALCYTE) 450 mg tablet Take 1 tablet (450 mg total) by mouth daily. Allergies: No Known Allergies Abbreviated Review of Systems (ROS) Functional Capacity: unable to assess Chest Pain: unknown Shortness of Breath/Dyspnea or Exertion: unknown Recent URI: no Airway, ASA Score & Sedation Specific History Concerns Mallampati: III Facial Hair: No Short Neck: No ASA Score: IV - Severe systemic disease that is a constant threat to life Sedation-Specific History Concerns: None This patient was re-evaluated immediately prior to sedation administration. Focused Physical Exam: Height ; Weight ; BMI Body mass index is 27.69 kg/m??. Vitals: 04/23/25 0410 BP: Pulse: Resp: Temp: SpO2: 99% General: intubated CV: tachycardic, regular rhythm Respiratory: on VC/AC ventilation Abdomen: soft, non-distended, surgical site with well-approximated with intact sergio, two abdominal drains with serosanguinous output Neuro: intubated, not interactive Sedation Plan: Per bedside floor team Antibiotic prophylaxis is not indicated. [1] Patient Active Problem List Diagnosis Alcoholic cirrhosis of liver with ascites (CMS-HCC) Encounter for pre-transplant evaluation for liver transplant High risk surgery, pre-operative cardiovascular examination High risk due to smoking Other ascites Jaundice Fatigue Immunosuppression (CMS-HCC) Other specified abnormal findings of blood chemistry Acute bacterial bronchitis Asthma Alcohol use Alcohol use disorder, severe, dependence (CMS-HCC) Bite Chemical dependency (CMS-HCC) Cholelithiasis without obstruction Contusion of rib Cough End-stage liver disease (CMS-HCC) Cyst of kidney, acquired Disease of gallbladder, unspecified Disease of stomach and duodenum, unspecified Elevated bilirubin Esophageal varices without bleeding (CMS-HCC) Essential (primary) hypertension Exposure to COVID-19 virus Finger sprain Hepatitis C virus infection Hypokalemia Hyponatremia Lesion of liver Low back pain Nausea New onset seizure (CMS-HCC) Opiate dependence, continuous (CMS-HCC) Other diseases of stomach and duodenum Other disorders of bilirubin metabolism Portal hypertension (CMS-HCC) Shingles Splenomegaly, not elsewhere classified Strep throat Strep throat exposure Varicose veins of other specified sites Viral syndrome Cosigned by Kelsey Moyer MD at 04/23/2025 11:26 AM EDT Associated attestation - Kelsey Moyer MD - 04/23/2025 11:26 AM EDT Signature. * Gloria Chen MD - 04/18/2025 6:33 AM EDT Patient feels well overall with no changes to symptoms, medications, diagnoses, or procedure history since her last H&P. GEN: awake, alert, NAD CV: RRR RESP: nl effort, no distress ABD: soft, non-distended, non-tender SKIN: warm and dry NEURO: A&Ox4, moves all extremities well, no focal deficits Ok to proceed with surgery as planned. GLORIA CHEN MD General Surgery Resident Cosigned by Ludin Jose MD at 04/22/2025 12:58 PM EDT Associated attestation - Ludin Jose MD - 04/22/2025 12:58 PM EDT Proceed with LDLT. Ludin Jose MD Retail Coverage Merchandiser of Transplant Surgery [phone] (m) documented in this encounter Procedure Notes * Alejandra Wilson MD - 04/23/2025 12:32 PM EDT Patient Name: Mindy Wade Date: 1990 Billing #: [id number] Date of Procedure: 04/23/2025 Diagnosis: GI bleed Procedure: 1. Reopening of recent laparotomy 2. Revision of jejunojejunostomy 3. Gastric lavage Attending surgeons: Surgeons and Role: * Alejandra Wilson MD - Primary * Quan Yates III, MD Aviation Neuropsychologist Surgeon(s): Jennifer Hess MD Findings: Normal liver allograft, large volume clot within small bowel lumen, obstructing clot at JJ anastomosis Indications for Procedure: This is a 35 y.o.-year-old female who underwent LDLT with Edna hepaticojejunostomy biliary reconstruction 5 days ago who developed upper GI bleed requiring massive transfusion protocol that was not identifiable on endoscopy due to clot burden. Due to the nature of the liver transplant, and lack of available help, Dr. Yates served as occupational therapist's assistant. Procedure: The patient brought to the operating room table intubated from the ICU. The abdomen and chest was prepped and draped in sterile fashion. Timeout was performed and perioperative antibiotics was confirmed as being given. We removed the previous fascial and skin closure and placed our Saini retractors. There was no significant hematoma or biliary spillage in the abdomen upon entry. Perihepatic fluid was sent for culture. The small bowel and JJ anastomosis were clearly full of blood clot. We opened the anterior wall of the jejunojejunostomy and evacuated a clot filling the entire lumen of the anastomosis. We then inspected the suture line and saw no areas of active bleeding. Large clot burden was milked back distal from small bowel through the JJ. There was no intraluminal clot tracking upthe Edna limb toward the HJ. There was bile free flowing down the limb without blood. When then performed gastric lavage through NGT and this was clear. We irrigated the JJ and found no source of bleed. The anastomosis was closed in two layers. The inner layer was closed with 3-0 Maxon in a runningfashion to the previous running inner layer. Outer layer was 4-0 silk Lembert sutures. The anastomosis was widely patent without evidence of intraluminal clot at the end of the case. The abdomen was irrigated with 4 L normal saline. Sponge and needle counts were correct x 2. Wand was negative for sponges or ray- tecs. Xray was negative for retained objects. The fascia was then closed with #1 PDS and the skin was closed with sergio. An incisional wound vac was placed. The patient was remained intubated and taken recovery room in stable condition. I was present for the entire procedure. * Jostin Hess MD - 04/23/2025 9:45 AM EDT EMERGENCYEXPLORATORY LAP, REVISION OF JJ ANASTOMSIS, GASTRIC LAVAGE Brief Op Note Mindy Wade 04/18/2025 - 04/23/2025 Pre-op Diagnosis: s/p liver transplant Post-op Diagnosis: Same Procedure(s): EMERGENCYEXPLORATORY LAP, REVISION OF JJ ANASTOMSIS, GASTRIC LAVAGE Surgeon(s): MD Quan Rodriguez III, MD Anesthesia: General Staff: Roof Tile Layer: Viktor Kennedy RN; Mikaela Delgado RN Scrub Person: Jaydon Soto RN Fellow: Jostin Hess MD Estimated Blood Loss: Minimal Specimens: Drains: Drain sub hepatic #1 Abdomen Right;Superior (Active) Site Description Healing 04/23/2549 Drain Type Bulb 04/23/2549 Drain Status Bulb suction 04/23/2549 Dressing Status Intact 04/23/2549 Output (mL) 100 mL 04/23/2554 Drainage Appearance Serosanguineous 04/23/2549 Number of days: 5 Drain hilar #2 Abdomen Right;Superior (Active) Site Description Healing 04/22/252007 Drain Type Bulb 04/22/252223 Drain Status Bulb suction 04/22/252223 Dressing Status Intact 04/22/252007 Output (mL) 60 mL 04/22/252223 Drainage Appearance Serosanguineous 04/22/252223 Number of days: 5 [REMOVED] NG/OG Tube Nasogastric Left nostril (Removed) $ NG/OG Tube Placement Charge Yes 04/18/251825 Placement Verification Yes 04/20/25799 Site Assessment Clean;Dry;Intact 04/20/25 08 Status Suction-low intermittent 04/20/25799 Drainage Appearance Green;Clear 04/20/25799 Drainage Output (mL) 400 mL 04/20/25 06 Flushes (mL) 30 mL 04/19/251999 Number of days: 2 [REMOVED] IUC (Ybarra) Non-latex;Straight-tip 16 Fr. (Removed) Status Jarreau Drainage 04/19/25 08 Collection Container Standard drainage bag 04/19/25 08 Securement Method StatLock 04/19/25 08 Indication for IUC continuation Require accurate, continuous UOP measuring in critically ill 04/19/25 08 Output (mL) 40 mL 04/19/25 1400 Number of days: 1 Anterior wall of JJ anastomosis opened, large volume clot evacuated, no active bleeding identified.Gastric lavage performed with clear return of contents, bile draining from Edna limb without evidence of bleeding. Incisional vac at 70 mmHg, remove POD 4 CRYSTAL drains x2 remain There were no complications unless listed below. JOSTIN HESS MD Date: 04/23/2025 Time: 11:12 AM * Kelsey Moyer MD - 04/23/2025 6:01 AM EDT [id number] Procedure Date: 04/23/2025 6:01 AM Patient Name: Mindy Wade Date of : 1990 Admit Type: Inpatient Age: 35 Gender: Female Note Status: Finalized Attending MD: Kelsey Moyer , , [id number] Procedure: Small bowel enteroscopy Indications: Melena Patient Profile: 35-year-old woman post recent right lobe living donor liver transplant with Edna-en-Y hepatojejunostomy 5 days ago (04/18/25) who developed large volume melena and coffee-ground emesis with hypotension and a drop in Hgb. Providers: Kelsey Moyer, Mike Ventura (Fellow) Referring MD: Ludin Jose Medicines: Fentanyl and propofol per primary team Complications: No immediate complications. Procedure: Pre-Anesthesia Assessment: - Prior to the procedure, a History and Physical was performed, and patient medications and allergies were reviewed. The patient is unable to give consent secondary to the patient's altered mental status. The risks and benefits of the procedure and the sedation options and risks were discussed with the patient's spouse. All questions were answered and informed consent was obtained. Patient identification and proposed procedure were verified by the physician, the nurse and the critical care technician in the procedure room. Mental Status Examination: sedated. Airway Examination: normal oropharyngeal airway and neck mobility. Respiratory Examination: clear to auscultation. CV Examination: tachycardia noted. Prophylactic Antibiotics: The patient does not require prophylactic antibiotics. Prior Anticoagulants: The patient has taken no anticoagulant or antiplatelet agents except for aspirin. ASA Grade Assessment: IV - A patient with severe systemic disease that is a constant threat to life. After reviewing the risks and benefits, the patient was deemed in satisfactory condition to undergo the procedure. The anesthesia plan was to use deep sedation / analgesia. Immediately prior to administration of medications, the patient was re-assessed for adequacy to receive sedatives. The heart rate, respiratory rate, oxygen saturations, blood pressure, adequacy of pulmonary ventilation, and response to care were monitored throughout the procedure. The physical status of the patient was re-assessed after the procedure. After obtaining informed consent, the endoscope was passed under direct vision. Throughout the procedure, the patient's blood pressure, pulse, and oxygen saturations were monitored continuously. The Endoscope was introduced through the mouth and advanced to the proximal jejunum. The small bowel enteroscopy was accomplished without difficulty. The patient tolerated the procedure well. Findings: The examined esophagus was normal. Small amount of refluxed red blood but no ulcers, esophagitis, or other abnormalities. A large amount of red blood with clots was found in the entire examined stomach. Once suctioned, there were no identified ulcers, angioectasias, or other sources of bleeding visualized in the stomach. Several large blood clots were found in the second portion of the duodenum, in the third portion of the duodenum, and in the fourth portion of the duodenum. Some of these were suctioned away. There was no active bleeding or sources of bleeding visualized in the duodenum. Blood clots and a small amount of red blood was found in the proximal jejunum without visible source of bleeding. Estimated Blood Loss: Estimated blood loss was minimal. Impression: - Normal esophagus. - Clotted blood in the entire stomach. No active bleeding or sources of bleeding visualized. - Several large blood clots in the second portion of the duodenum, in the third portion of the duodenum, and in the fourth portion of the duodenum. No active bleeding or sources of bleeding visualized. - Small amount of blood with clots in the proximal jejunum. The jejunojejunostomy anastomosis was not visualized. - No specimens collected. Recommendation: - Return patient to ICU for ongoing care. - NPO. - Can stop IV PPI. Resume PO PPI daily. - Monitor for ongoing bleeding. Some continued melena is expected as blood makes it's way through her GI tract. Please contact GI team if recurrent bleeding. - If patient has another drop in Hgb or concerns for active GI bleeding, recommend obtaining a STAT CT abd/pelvis with GI bleed protocol to help identify the source of the bleed. Procedure Code(s): --- Professional --- 78031, GC, Small intestinal endoscopy, enteroscopy beyond second portion of duodenum, not including ileum; diagnostic, including collection of specimen(s) by brushing or washing, when performed (separate procedure) Diagnosis Code(s): --- Professional --- K92.2, Gastrointestinal hemorrhage, unspecified K92.1, Melena (includes Hematochezia) CPT copyright 2022 [employer]. All rights reserved. The codes documented in this report are preliminary and upon reporting developer review may be revised to meet current compliance requirements. Attending Participation: I was present and participated during the entire procedure from insertion to removal of the endoscope. Kelsey Moyer Kelsey Moyer, 04/23/2025 11:32:48 AM Mike Ventura Mike Ventura, 04/23/2025 7:30:40 AM Total Procedure Duration Time 0 hours 51 minutes 31 seconds Scope In: 6:09:10 AM Scope Out: 7:00:[address] [place] [address], [id number] * Drea Campbell MD - 04/23/2025 4:52 AM EDTAssociated Order(s): Insert Arterial Line Insert Arterial Line Date/Time: 04/23/2025 4:53 AM Performed by: Drea Campbell MD Authorized by: Manuela Lang MD Consent: Consent obtained: Emergent situation [place] protocol: Patient identity confirmed: Hospital-assigned identification number and arm band Indications: Indications: hemodynamic monitoring and multiple ABGs Pre-procedure details: Skin preparation: Chlorhexidine Preparation: Patient was prepped and draped in sterile fashion Sedation: Sedation type: None Anesthesia: Anesthesia method: Local infiltration Local anesthetic: Lidocaine 1% w/o epi Procedure details: Laterality: Right Location: Femoral artery Donte's test performed: no Needle gauge: 18 G Placement technique: Ultrasound guided Number of attempts: 4 Transducer: waveform confirmed Post-procedure details: Post-procedure: Biopatch applied, secured with tape and sterile dressing applied Procedure completion: Tolerated well, no immediate complications Comments: Initial 3 attempts were in the R radial site. Procedure aborted due to not having good enough bloodflow with catheter in place. Cosigned by Manuela Lang MD at 04/23/2025 5:12 AM EDT Associated attestation - Manuela Lang MD - 04/23/2025 5:12 AM EDT Attending Surgeon I have reviewed the documentation of the above procedure. I was present for the entire procedure. Manuela Lang MD Section of General Surgery Divisions of Trauma, Acute Care Surgery, and Surgical Critical Care [facility] Academic Office [phone] * Manuela Lang MD - 04/23/2025 4:00 AM EDTAssociated Order(s): Central Line Mindy Wade is a 35 y.o. female patient. 1. Immunosuppression (CMS-HCC) 2. Pre-transplant evaluation for chronic liver disease 3. Generalized edema 4. Melena Past 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: Diagnosis Date Abdominal hernia 02/21/2023 Alcoholic hepatitis (CMS-HCC) Anxiety Ascites Chronic diarrhea 08/21/2022 Cirrhosis (CMS-HCC) Cystitis Depression Hepatitis C Blood pressure (!) 81/60, pulse 116, temperature 97.1 ??F (36.2 ??C), temperature source Oral, resp. rate 13, height 5' 5 (1.651 m), weight 166 lb 6.4 oz (75.5 kg), SpO2 99%. Central Line Date/Time: 04/23/2025 5:14 AM Performed by: HOLGER Franklinonsent: The procedure was performed in an emergent situation Catheter type: double lumen Indication(s): vascular access Patient location at time of line placement: ICU Conditions of line placement: sterile Preparation: skin prepped with 2% chlorhexidine Location details: left femoral Catheter size: 9 Fr Catheter fully inserted (hub at skin): yes Insertion guided by: anatomical landmarks Number of attempts: 1 Successful placement: yes Sutured: 3-0 Post procedure chest x-ray ordered: no Complications: none MANUELA LANG MD 04/23/2025 * Drea Campbell MD - 04/23/2025 3:00 AM EDTAssociated Order(s): Intubation Intubation Date/Time: 04/23/2025 3:44 AM Performed by: Drea Campbell MD Authorized by: Manuela Lang MD Consent: Consent obtained: Emergent situation Alternatives discussed: No treatment and delayed treatment [place] protocol: Patient identity confirmed: Hospital-assigned identification number and arm band Pre-procedure details: Indications: airway protection, respiratory distress and respiratory failure Patient status: Unresponsive Look externally: no concerns Mouth opening - incisor distance: 2 finger widths Hyoid-mental distance: 2 finger widths Hyoid-thyroid distance: 1 finger width Mallampati score: II Obstruction: none Neck mobility: normal Pharmacologic strategy: RSI Induction agents: Etomidate Paralytics: Succinylcholine Procedure details: Preoxygenation: Supraglottic device CPR in progress: no Number of attempts: 1 Successful intubation attempt details: Intubation method: Oral Intubation technique: video assisted Laryngoscope blade: Hypercurved 4/D-Blade Bougie used: no Grade view: I Tube size (mm): 7.5 Tube type: Cuffed Placement assessment: ETT at teeth/gumline (cm): 23 Tube secured with: ETT ye Breath sounds: Equal Placement verification: CXR verification CXR findings: Appropriate position Post-procedure details: Procedure completion: Tolerated well, no immediate complications Cosigned by Manuela Lang MD at 04/23/2025 4:44 AM EDT Associated attestation - Manuela Lang MD - 04/23/2025 4:44 AM EDT Attending Surgeon I have reviewed and modified the documentation of the above procedure. I was present for the entireprocedure. Manuela Lang MD Section of General Surgery Divisions of Trauma, Acute Care Surgery, and Surgical Critical Care [facility] Academic Office [phone] * Chava Mcgraw RN - 04/21/2025 8:37 AM EDTAssociated Order(s): Insert PICC line Mindy Wade is a 35 y.o. female patient. 1. Pre-transplant evaluation for chronic liver disease 2. Generalized edema Past 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: Diagnosis Date Abdominal hernia 02/21/2023 Alcoholic hepatitis (CMS-HCC) Anxiety Ascites Chronic diarrhea 08/21/2022 Cirrhosis (CMS-HCC) Cystitis Depression Hepatitis C Blood pressure 121/75, pulse 65, temperature 97.5 ??F (36.4 ??C), temperature source Oral, resp. rate (!) 0, height 5' 5 (1.651 m), weight 156 lb (70.8 kg), SpO2 91%. Insert PICC line Date/Time: 04/21/2025 8:37 AM Performed by: Chava Mcgraw RN Authorized by: Ludin Jose MD [place] Protocol: Verbal consent obtained?: Yes Written consent obtained?: Yes Risks and benefits: Risks, benefits and alternatives were discussed Consent given by: Patient Patient states understanding of procedure being performed: Yes Patient's understanding of procedure matches consent: Yes Procedure consent matches procedure scheduled: Yes Relevant documents present and verified: Yes Test results available and properly labeled: Yes Site marked: Yes Imaging studies available: Yes Required items: Required blood products, implants, devices and special equipment available Patient identity confirmed: Verbally with patient, arm band and hospital- assigned identification number Time out: Immediately prior to the procedure a time out was called A time out verifies correct patient, procedure, equipment, support assistant and site/side marked as required: Preparation: Preparation: Patient was prepped and draped in usual sterile fashion Site: brachial vein Local anesthesia used?: Yes Anesthesia: Local infiltration Local anesthetic: Lidocaine 1% without epinephrine Anesthetic total (ml): 4 Patient sedated: No Post-procedure: Patient tolerance: Patient tolerated the procedure well with no immediate complications PICC placement completed, patient educated on complications, risks and prevention of infection. Written material given to patient. Guidewire removed post PICC placement: Yes CHAVA MCGRAW RN 04/21/2025 * Quan Yates III, MD - 04/18/2025 5:00 PM EDT Patient Name: Mindy Wade Date: 1990 Billing #: [id number] Date of Procedure: 04/18/2025 Diagnosis: Chronic Hepatic Failure without coma Procedure: 1. Back bench preparation right lobe living donor liver 2. Back bench venous extension of right hepatic vein with iliac vein graft 3. Back bench venous anastomosis (V8 to iliac vein graft) Attending surgeons: Quan Yates III, MD - Primary Aviation Neuropsychologist Surgeon(s): Shannon Johns MD - Assisting Findings: Right lobe liver allograft placed in piggyback fashion: Outflow: (1) Right hepatic vein of donor to right hepatic-vein cavoplasty of recipient (3.5 cm anastomosis) and (2) V8-iliac vein conduit to IVC Inflow: (1) Donor right portal vein to recipient right portal vein and (2) donor right hepatic artery to recipient right anterior hepatic artery branch patch Biliary reconstruction: right anterior and right posterior hepatic ducts to edna-en-Y hepaticojejunostomy (2 separate anastomoses without stents) Portal Flow Modulation No Portal vein flow - 1.4 /min, PI 0.3 Hepatic artery flow - 85 mL/min, PI 0.3 Graft Weight 625 gm GRWR - 0.76 (after accounting for reconstruction of V8 and RHV) Vein Conduit: [id number] - ABO O Anesthesia: GETA Blood/Fluid Products: Allogenic PRBC units: 3 Autologous Cell Saver: FFP: 4 Cryo: 2 Platelets: 2 Cold Ischemic Time: 1 hr 23 min Warm Ischemic Time: 22 min Operative Times: Cross clamp on donor: 04/18/25 @ 12:02 Incision on recipient: 04/18/25 @ 09:15 Liver taken out of ice: 04/18/25 @ 13:03 Liver reperfused: 04/18/25 @ 13:25 All incisions closed: 04/18/25 @ 17:50 Indications for Procedure: This is a 35 y.o.-year-old female who has HCV/ETOH cirrhosis decompensated by ascites with a MELD score of 14. An anonymous altruistic donor came forward as a living donor.Ms. Wade was selected as she was a good size match for her weight and MELD score for the donor allograft. The donor evaluation yieled a right lobe graft with an estimated weight of 715 gm with an estimated GRWR of 0.82. This donor was ABO O and UNOS ID [id number]. The donor is a is a 53 year old female. The donor did not have risk factors for blood-borne disease transmission. All donors and living donors are tested for HIV, HBV, and HCV so the risk for undetected infections is very low, but not zero. Some donors may have risk factors for acute HIV, HBC and HCV infection related to recent social history of injection drug abuse, risky sexual behavior, incarceration or unknown history within the past 30 days. After transplantation, all transplant recipients will be tested for HIV, HBV, and HCV infection. If transmission occurs, there are effective therapies available. I personally confirmed that the donor ABO was O and the patient was ABO O, which are compatibles blood types, prior to implantation in the recipient. A third constitution party iliac vein graft from donor with UNOS ID [id number] and ABO was utilized as well. Prior to use I confirmed the ABO of the donor and recipient were both O. Patient was induced with Solu-Medrol. Dr. Wilson and I did the living donor hepatecomy. Dr. Jose performed the living donor liver transplant and I assisted him. I performed the back bench preparation of the liver and given the lack of other qualified and available helped Dr. Johns as programs assistant surgeons in this case. Procedure: Back bench preparation of right lobe liver allograft After removal of the right lobe from the donor I received the allograft and transferred it to the back table. I flushed the portal vein with 2 L of HTK containing 10,000 units of heparin. I then did a retrograde flush through the right hepatic vein and V8 after removing the suture on the V8 branche. The liver flushed well. I then flushed the donor right artery with cold heparinized saline. I weight the allograft and it weight 625 grams. I inspected the allograft. The right hepatic vein was large and an incision was made inferiorly on the vein to further enlarge the outflow. A piece of the iliac vein graft was cut and was sewn to the inferio-lateral aspect of the RHV orifice as an extension fence patch with 6-0 prolene suture, this came from donor with UNOS ID [id number] that was ABO O. Next a slit was made on the orifice of the V8 branch on the cut surface of the liver. An end to side anastomosis was sewn with a 6-0 prolene suture between the V8 and external iliac vein of the iliac vein graft from the same donor was performed. We made sure the alignment was perfect. The hepatic artery was freshened up and dissected back slightly. The portal vein was dissected and lengthened. The bileduct was inspected. There were 2 bile ducts, 1 hepatic artery and 1 portal vein. The liver was thenre-immersed in 4 degrees HTK solution and prepared for implantation. * Ludin Jose MD - 04/18/2025 5:00 PM EDT [facility] OPERATIVE REPORT Patient Name: Mindy Wade Date: 1990 Billing #: [id number] Date of Procedure: 04/18/2025 Diagnosis: Chronic Hepatic Failure without coma Procedure: 1. Right lobe living donor liver transplant with edna en y hepaticojejunostomy. Attending surgeons: Surgeons and Role: * Ludin Jose MD - Primary * Quan Yates III, MD - Assisting * Shannon Johns MD - Assisting * Jose Daniel MD - Resident - Assisting * Alejandra Wilson MD - Resident - Observing Aviation Neuropsychologist Surgeon(s): Jennifer Hess - Fellow Findings: Right lobe liver allograft placed in piggyback fashion: Outflow: (1) Right hepatic vein of donor to right hepatic-vein cavoplasty of recipient (3.5 cm anastomosis) and (2) iliac vein conduit from the right anterior segments. Inflow: (1) Donor right portal vein to recipient right portal vein and (2) donor right hepatic artery to recipient right anterior hepatic artery branch patch Biliary reconstruction: edna with 2 ducts Portal Flow Modulation No Portal vein flow - 1.4, PI 0.3 Hepatic artery flow - 85, PI 1.4 Graft Weight 1200 gm GRWR - 1.28 Anesthesia: GETA Blood/Fluid Products: Allogenic PRBC units: Autologous Cell Saver: FFP: Cryo: Platelets: Cold Ischemic Time: Warm Ischemic Time: Operative Times: Cross clamp on donor: Incision on recipient: Liver taken out of ice: Liver reperfused: All incisions closed: Indications for Procedure: This is a 35 y.o.-year-old female who has HCV and ETOH cirrhosis and chronic liver failure complicated by varices with a MELD score of 14. An altruistic donor came forward as a living donor. The donor evaluation yieled a right lobe graft with an estimated weight of 715 gmwith an estimated GRWR of 1.04. This donor was ABO O and UNOS ID [id number]. The cadaveric vessels came from UNOS ID [id number] who was also ABO O. The donor is a is a 53 year old healthy donor. The donor norisk factors for blood-borne disease transmission. All donors and living donors are tested for HIV, HBV, and HCV so the risk for undetected infections is very low, but not zero. Some donorsmay have risk factors for acute HIV, HBC and HCV infection related to recent social history of injection drug abuse, risky sexual behavior, incarceration or unknown history within the past 30 days. After transplantation, all transplant recipients will be tested for HIV, HBV, and HCV infection. If tr ansmission occurs, there are effective therapies available. I personally confirmed that the donor ABO was O and the patient was ABO O , which are compatibles blood types, prior to implantation in [facility]. Patient was induced with Solu-Medrol. Dr. Hung did the living donor hepatecomy. Due to the nature of the liver transplant and lack of other qualified and available helped Dr. Yates served as programs assistant surgeon in this case. Procedure: Back bench preparation of right lobe liver allograft Will be dictated by Dr. Yates. Hepatectomy The patient brought to the operating room table. After induction of general endotracheal anesthesia, appropriate lines were placed sterilely. Right arm was tucked and left are was left out and the abdomen and chest was prepped and draped in sterile fashion. The right groin was also prepped as well.Timeout was performed and perioperative antibiotics were confirmed as being given. The abdomen was entered through a hockey stick incision using cautery to cut through the subcutaneous tissue and muscle and enter the abdomen under direct visualization. No ascites was encountered. The Saini retractor was and the liver was exposed. It was clearly cirrhotic. There was no evidence of metastatic cancer. No other abnormalities were found in the abdomen. The liver was then mobilized by taking down the right and left triangle ligaments. The bare of the liver was taken all the way down to the levelof the hepatic veins. The right lobe of the liver was then mobilized from the retroperitoneum exposing the lateral border of the IVC. There were some adhesions of the lesser omentum to the undersurface of the left lateral segment. These were taken down and the lesser omentum divided with the Ligasure. We then turned our attention to the dissection of the denita hepatis. We incised the overlying peritoneum. Our dissection was high and we isolated and divided the left hepatic artery and segment VIartery at the hilar plate between clips. The cystic duct was identified and divided. The bile duct was identified and dissected out in continuity with the right hepatic artery. We went quite distal and ligated right posterior and anterior branches of the right hepatic artery separately between clips. The portal vein was then identified and from the bile duct. The left and right portal vein branches were isolated. Several small caudate lobe branches from the right vein were divided between ties or the ligasure. Finally the anterior aspect of the right bile duct and inferior aspect ofthe left bile duct were identified. The left and right bile ducts were cut sharply from the liver above the liver of the hilar plate. The hilar plate on the liver side was oversewn with 4-0 prolene. Small multiple bleeding locations on the bile duct were controlled with 6-0 prolene sutures. tomy then identified and ligated the cystic duct. We then turned our attention to the piggyback freeing the liver from the IVC by ligating short hepatic veins using either suture ligature or the ligasure. The liver was mobilized from the right to the left off the cava. We ensure that the caudate lobe was mobilized off the cava as well. The right hepatic vein was encircled. The middle and left hepatic vein confluence was then isolated. After confirming stability with anethesia, the left portal vein was suture ligated and oversewn. The portal vein was clamped and the right portal vein divided after clamping the right hepatic vein and common orifice of the middle and left hepatic veins. The liver wasthen sharply cut from its outflow keeping some liver on the hepatic veins. The liver was removed from the field. The applecore of liver tissue was removed from the hepatic veins and the middle and left hepatic veins were oversewn. Right Lobe Implantation The right lobe graftr was then brought to the field. A Satinsky clamp was placed on the right hepatic vein preserving >50% of the IVC. A longitudinal incision was made of about 4 cm incorporating the orifice of the right hepatic vein extending down onto the cava. Stay sutures were placed in recipient cava and held open. Then in a side to side fashion, a right hepatic vein to right hepatic veinanastomosis was performed. This was done with a 4-0 Prolene in a running fashion. The portal vein was then flushed with heparinized saline. The donor right portal vein was then anastomosed to the recipient right portal vein. We flushed the portal vein and the flow was strong and adequate. No sentinel clot was evacuated. We made sure to keep the alignment perfect. This was done with a 6-0 Prolene in a running fashion. A growth factor was left. Patient received normal anhepatic agents such as bicarbonate, calcium and mannitol. After the clamps were removed the patient tolerated the procedure well. The liver reperfused quite nicely. Areas of bleeding were then controlled along the diaphragm and the right retroperitoneum. There was some bleeding from the cut surface of the liver which was wascontrolled with cautery and nuknit. Reperfusion was complete without incident. The hepatic artery was then reconstructed. We dissected distal branching of the right hepatic artery. An anastomosis wasthen constructed with interrupted 8-0 prolene suture under high magnification (6.0x) to complete a microvascular hepatic artery anastomosis. Following this there was a great pulse and thrill in the artery. Flows were measure and were 85 ml/min in the artery (RI 1.4) and 1.4L/min in the portal vein (RI 0.3). We then did a intraoperative liver doppler ultrasound and demonstrated normal appearing hepatic artery waveforms in the allograft as well as normal portal venous and hepatic venous waveforms. We then ensured hemostasis and turned our attention to the bile duct. A edna limb was created just past the ligament of treitz. The bowel was divided and a 40 cm limb was brought up through a defect in the mesocolon to reach the right lobe graft. We created a hand sewn side to side jejunojejunostomy with 3-0 silk and 3-0 maxxon. The end of the edna was re enforce with 3-0 silk. There was good perfusion to the edna. The mesenteric defect was closed. We suspended the anterior wall of both ducts with 5-0 PDS. We made an enterotomy and placed the back wall sutures for the right anterior duct. This was tied down before a second enterotomy was made. We palced the posterior layer for the posteriorright duct and tied these down. Then the anterior wall sutures were placed. We put a 5 fr pediatricfeeding tube in the lumen of the edna for each bite. There was no evidence of a bile leak although no bile was coming from the ducts during this time. We then ensured hemostasis. Nu-knit was placed on the cut surface of the liver. A tongue of omentum went into an umbilical hernia. This was divided b etween ties. The umbilical hernia was then closed internally using two interrupted #1 PDS sutures. A CRYSTAL drain was left over the liver. Another CRYSTAL drain was left over the portal triad and cut surface of the liver. Hemostasis of the abdominal cavity was ensured. At the end of the case, the liver appeared to be reperfused quite nicely. The fascia was then closed with #1 PDS and the skin was closed with sergio. The patient was left intubated and sent to the SICU for recovery. Sponge and needle counts were correct x 2. Wand was negative for sponges or ray-tecs. I was present for the entire procedure. * Jostin Hess MD - 04/18/2025 9:14 AM EDT LIVING DONOR LIVER TRANSPLANT Brief Op Note Mindy Wade 04/18/2025 Pre-op Diagnosis: Pre-transplant evaluation for chronic liver disease [Z01.818] Post-op Diagnosis: SAme Procedure(s): LIVING DONOR LIVER TRANSPLANT Surgeon(s): MD Alejandra Walters MD Giulia Bencini, MD Ralph Cutler Quillin III, MD Alex Chang, MD Alex Chang, MD Alex Chang, MD Anesthesia: General Endotracheal Staff: Roof Tile Layer: Aurelio Abarca RN; Mary Fink, RN; Piero Sharpe, KONSTANTIN; Victor Manuel Kevin RN Relief Scrub: Maynor Whitaker RN Scrub Person: Cari Aguilar Fellow: Jostin Hess MD Float: Rohini Block RN; Maynor Whitaker RN Resident: Gloria Chen MD; Giovanny Louis MD Estimated Blood Loss: 7300 mL Specimens: Drains: Drain Abdomen Right;Superior (Active) Number of days: 0 Drain Abdomen Right;Superior (Active) Number of days: 0 IUC (Ybarra) Non-latex;Straight-tip 16 Fr. (Active) Number of days: 0 Transplant-Specific Information UNOS ID: [id number] Cross-clamp: 1202 Out of ice: 1303 Reperfusion: 1325 Anatomy Caval: RHV to RHV; venous conduit from HV to cava SPANN: RHA to RHA Biliary: 2 HJ bile anastomosis Flows: SPANN: 85, PI: 1.4 PV: 1.4, PI: 0.3 Drains: CRYSTAL x2: Right lateral subhepatic, right medial hilar/cut surface There were no complications unless listed below. JOSTIN HESS MD Date: 04/18/2025 Time: 6:08 PM documented in this encounter Consult Notes * Moe Luis MD - 04/24/2025 6:51 AM EST Surgical ICU Consult Note / Progress Note Patient: Mindy Wade Date/Time: 04/24/2025 6:51 AM HPI: Mindy Wade is a 35 y.o. 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 She has been ETOH free for several years who presented on 04/18/2025 from the floor for concerns of shock. She was having destiney red blood from stool, hypotension, lehargy, hypotension. She is post-op day 4 s/p liver transplant from living donor transplant. Admitted to SICU with concerns for hemorrhagic shock. Home Medications: Albuterol Carvedilol 3.125 mg BID Lasix 60 mg BID Gabapentin 800 TID Spironolactone 150 BID MEDICAL HISTORY: Past 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: Diagnosis Date Abdominal hernia 02/21/2023 Alcoholic hepatitis (CMS-HCC) Anxiety Ascites Chronic diarrhea 08/21/2022 Cirrhosis (CMS-HCC) Cystitis Depression Hepatitis C Past Surgical History: Procedure Laterality Date APPENDECTOMY CYST REMOVAL Right had a cystic lesion under right breast with hematoma and cyst per patient which was removed ESOPHAGOGASTRODUODENOSCOPY N/A 07/28/2024 Procedure: EGD; Surgeon: Mario Ramirez MD; Location: ENDOSCOPY; Service: Gastroenterology; Laterality: N/A; LIVER TRANSPLANTATION N/A 04/18/2025 Procedure: LIVING DONOR LIVER TRANSPLANT; Surgeon: Ludin Jose MD; Location: OR; Service: Transplant; Laterality: N/A; UPPER GASTROINTESTINAL ENDOSCOPY 09/21/2022 Home Medications Medication Sig Taking? Last Dose carvediloL (COREG) 3.125 MG tablet Take 1 tablet (3.125 mg total) by mouth 2 times a day with meals. Patient taking differently: Take 1 tablet (3.125 mg total) by mouth at bedtime. Yes 04/17/2025 Bedtime furosemide (LASIX) 20 MG tablet TAKE 3 TABLETS(60 MG) BY MOUTH TWICE DAILY Yes 04/17/2025 Morning gabapentin (NEURONTIN) 800 MG tablet Take 1 tablet (800 mg total) by mouth 3 times a day. Yes 04/17/2025 Bedtime acetaminophen (TYLENOL) 325 MG tablet Take 3 tablets (975 mg total) by mouth every 8 hours. aspirin 81 MG chewable tablet Chew 1 tablet (81 mg total) by mouth daily. calcium-vitamin D 500 mg-5 mcg (200 unit) per tablet Take 1 tablet by mouth 2 times a day with meals. enoxaparin (LOVENOX) 40 mg/0.4 mL Syrg Inject 0.4 mLs (40 mg total) subcutaneously daily. famotidine (PEPCID) 20 MG tablet Take 1 tablet (20 mg total) by mouth 2 times a day. fluconazole (DIFLUCAN) 200 MG tablet Take 1 tablet (200 mg total) by mouth daily for 30 days. mycophenolate (CELLCEPT) 250 mg capsule Take 2 capsules (500 mg total) by mouth 2 times a day. naloxone (NARCAN) 4 mg/actuation Oolitic Apply 1 spray in one nostril if needed. Call 911. May repeat dose in other nostril if no response in 3 minutes. ondansetron (ZOFRAN-ODT) 8 MG disintegrating tablet Take 1 tablet (8 mg total) by mouth every 8 hours as needed for Nausea. 04/15/2025 polyethylene glycol (GLYCOLAX) 17 gram/dose powder Mix 1 capful (17 g) in 8 oz of liquid and drink by mouth daily as needed (Constipation). predniSONE (DELTASONE) 5 MG tablet Take 4 tablets (20 mg total) by mouth daily. senna-docusate (SENNOSIDES-DOCUSATE SODIUM) 8.6-50 mg per tablet Take 1 tablet by mouth at bedtime as needed for Constipation. sulfamethoxazole-trimethoprim (BACTRIM) 400-80 mg per tablet Take 1 tablet by mouth daily. tacrolimus (PROGRAF) 1 MG capsule Take 10 capsules (10 mg total) by mouth 2 times a day. valGANciclovir (VALCYTE) 450 mg tablet Take 1 tablet (450 mg total) by mouth daily. Scheduled Meds: [Held by provider] aspirin 81 mg Oral Daily with breakfast [Held by provider] carvediloL 3.125 mg Oral BID [Held by provider] cyclobenzaprine 10 mg Oral TID fluconazole in sodium chloride (iso-osm) 200 mg Intravenous Q24H [Held by provider] gabapentin 900 mg Oral TID [Held by provider] heparin 5,000 Units Subcutaneous 3 times per day insulin regular 0-12 Units Subcutaneous Q6H Scheduled ipratropium-albuteroL 3 mL Nebulization RT Q4HRS lidocaine 1 patch Transdermal Daily 0900 mycophenolate (CELLCEPT) IVPB 500 mg Intravenous Q12H pantoprazole (PROTONIX) IV 40 mg Intravenous BID6 piperacillin-tazobactam (ZOSYN) IV extended interval 4.5 g Intravenous Q8H [Held by provider] polyethylene glycol 17 g Oral Daily 0900 predniSONE 40 mg Oral Once Followed by predniSONE 30 mg Oral Once Followed by [START ON 04/25/2025] predniSONE 25 mg Oral Once Followed by [START ON 04/26/2025] predniSONE 20 mg Oral Daily 0900 [Held by provider] scopolamine 1 patch Transdermal Q72H [Held by provider] senna-docusate 1 tablet Oral BID [Held by provider] simethicone 80 mg Oral PC/HS sodium chloride 4 mL Nebulization RT BID sulfamethoxazole-trimethoprim 1 tablet Oral Daily 0900 tacrolimus 0.5 mg Sublingual BID valGANciclovir 450 mg Oral Daily 0900 Continuous Infusions: EPINEPHrine (ADRENALIN) 10 mg in sodium chloride 0.9 % 250 mL infusion Stopped (04/23/25 0950) fentanyl (SUBLIMAZE) IV infusion 125 mcg/hr (04/23/25 1851) propofol 30 mcg/kg/min (04/23/25 1800) sodium chloride 0.9 % 75 mL/hr (04/24/25 0103) PRN Meds: albuterol, dextrose 10% in water OR dextrose 10% in water, fentanyl (SUBLIMAZE) IV infusion AND fentaNYL, HYDROmorphone OR HYDROmorphone, ipratropium-albuteroL, ondansetron, phenoL Allergies[1] Social History Tobacco Use Smoking status: Former Current packs/day: 0.00 Average packs/day: 0.3 packs/day for 1.2 years (0.3 ttl pk-yrs) Types: Cigarettes Start date: 07/22/2014 Quit date: 07/22/2015 Years since quittin.7 Smokeless tobacco: Never Substance Use Topics Alcohol use: Not Currently Family History Problem Relation Age of Onset Liver disease Father Cirrhosis Father REVIEW OF SYSTEMS: Review of systems conducted with patient and pertinent positives are noted in HPI. INTERVAL EVENTS 24 HOUR EVENTS: - EGD with GI- large amount of blood and clots identified in stomach, no active source identified - Went to OR with transplant surgery for ex-lap, opening of JJ anastomosis, large amount of clot evacuated though no active bleeding identified - following OR no further product resuscitation needed - passed SBT this morning HEENT Exam: Normocephalic, atraumatic A/P: - NGT remains to low wall suction - No active issues RESPIRATORY Exam: No acute distress, non-labored respirations, saturating well on mechanical ventilation Vent Settings: Vent Mode: VC-SIMV/PRVC FiO2: [39 %-100 %] 40 % S RR: [14-16] 14 S VT: [410 mL-450 mL] 410 mL Spont TV: [0 mL-599 mL] 599 mL Inspiratory Time Set: [0.9 sec-1.1 sec] 0.9 sec PIP: [2 cm H2O-27 cm H2O] 13 cm H2O Plateau Pressure (cm H2O): [8.5 cm H2O-25 cm H2O] 14 cm H2O Delta Pressure Support (cm H2O): [0 cm H2O-10 cm H2O] 10 cm H2O PEEP/CPAP: [0 cm H20-13 cm H20] 8 cm H20 Patient Vitals for the past 12 hrs: Vent Mode Resp Rate (Set) Vt (Set, mL) Spont TV Inspiratory Time Set PIP Observed PEEP/CPAP Delta Pressure Support (cm H2O) 04/24/25 0543 VC-SIMV/PRVC 14 410 mL 599 mL 0.9 sec 13 cm H2O 8 cm H20 10 cm H2O 04/24/25 0541 Spont PEEP -- -- 552 mL -- 11 cm H2O 8 cm H20 0 cm H2O 04/24/25 0507 Spont PEEP -- -- 564 mL -- 11 cm H2O 8 cm H20 0 cm H2O 04/24/25 0506 Spont PS/PEEP -- -- 499 mL -- 9.6 cm H2O 8 cm H20 10 cm H2O 04/24/25 0503 VC-SIMV/PRVC 14 410 mL 362 mL 0.9 sec 18 cm H2O 8 cm H20 10 cm H2O 04/24/25 0005 VC-SIMV/PRVC 14 410 mL 0 mL 0.9 sec 11 cm H2O 8 cm H20 10 cm H2O 04/23/252014 VC-SIMV/PRVC 14 410 mL 0 mL 0.9 sec 12 cm H2O 8 cm H20 10 cm H2O Other O2 Device: Patient Vitals for the past 5 hrs: FiO2 04/24/25 0543 40 % 04/24/25 0541 40 % 04/24/25 0507 40 % 04/24/25 0506 40 % 04/24/25 0503 40 % Total RSBI: 29 (04/24/25 0541) Blood Gas: Lab 04/24/25 0543 04/24/25 0000 04/23/25 1811 04/23/25 1344 04/23/25 1146 PH ARTERIAL 7.37 7.34* 7.34* 7.33* 7.31* PCO2 ARTERIAL 40 45 44 42 46* PO2 ARTERIAL 107* 102* 107* 88 158* HCO3 ARTERIAL 23 24 23 22 23 BASE EXCESS ARTERIAL -2.0 -1.6 -2.1* -3.7* -3.1* % HBO2 97.3 96.7 96.3 94.7* 98.1* O2 SATURATION ARTERIAL 100 100 100 98 99 - P:F Ratio: 268 IBW: [place] body weight: 57 kg (125 lb 10.6 oz) Adjusted ideal body weight: 64.4 kg (141 lb 15.3 oz) A/P: #Hx of latent TB s/p tx #Bronchospasm #Supplemental Oxygen Requirement #Acute Hypoxic Respiratory Failure Received Mg 2g, epi pushes, Calcium gluconate during sever bronchospasm phase that lead to respiratory failure. Unable to move chest wall. Turned pale with acrocyanosis - Intubated, sedated - Goal SpO2: >92% - Vent settings RR 14, Vt 410, Peep 8, Delta 10, FiO2 40% - gas following SBT 7.37, 40, 107, BE -2 - Extubate this morning on 3L NC CARDIOVASCULAR Exam: Regular rate, regular rhythm Vitals: Temp: [97 ??F (36.1 ??C)-98.9 ??F (37.2 ??C)] 98.9 ??F (37.2 ??C) Heart Rate: [78-113] 104 Resp: [6-18] 8 BP: (91-130)/(55-96) 93/68 Arterial Line BP: (85-141)/(47-83) 100/60 FiO2: [39 %-100 %] 40 % Hemodynamics: No data found. Cardiac Labs: Lab 04/23/25 1130 04/23/25 0745 04/23/25 0426 04/23/25 0223 04/19/25 0633 04/19/25 0227 HSTROP -- -- -- -- -- 15* LACTATE BLOOD ARTERIAL -- 1.6 1.3 -- -- -- LACTATE 1.0 -- 1.3 1.9 < > 1.5 < > = values in this interval not displayed. Prior Cardiac Data: - Echo (02/01/25): LVEF 55-60% - Left ventricle: The cavity size is [...] baseline or with provocation, shows a very [id number] atrial level shunt. There is a shunt which may be intrapulmonary or intracardiac, but cannot be confidently differentiated. - Tricuspid valve: There is mild-moderate regurgitation. - Pulmonary arteries: The peak systolic pressure is 37mm Hg. A/P #Hemorrhagic shock- Resolved - transfused 4 PRBC, 1FFP, 1 cryo, 1 platelets initially, given another 2 units of pRBCs prior to OR, no more product since OR - trend CBCs, see heme section - off pressors since OR - No changes today GASTROINTESTINAL Exam: Soft, distended, tender int he LUQ mainly Drain Output: Output by Drain (mL) 04/22/25 0701 - 04/22/25 1900 04/22/25 1901 - 04/23/25 0700 04/23/25 0701 - 04/23/25 1900 04/23/25 1901 - 04/24/25 0651 Drain sub hepatic #1 Abdomen Right;Superior 215 350 225 75 Drain hilar #2 Abdomen Right;Superior 90 185 250 75 Negative Pressure Wound Therapy Abdomen Medial 0 GI Labs: Lab 04/24/25 0436 04/24/25 0000 04/23/25 1811 04/23/25 1146 04/23/25 1130 04/23/25 0426 04/23/25 0223 04/22/25 2304 04/22/25 0606 ALK PHOS 84 -- -- -- 55 63 63 -- 83 ALT 98* -- -- -- 78* 81* 89* -- 144* AST 77* -- -- -- 65* 59* 63* -- 116* BILIRUBIN TOTAL 2.9* -- -- -- 2.7* 1.4 1.3 -- 1.9* ALBUMIN 2.4* -- -- -- 2.3* 2.2* 2.0* -- 3.1* ALBUMINKID 2.4* 2.5* 2.5* 2.3* 2.3* 2.2* 2.0* < > 3.1* BILIRUBIN DIRECT 2.19* -- -- -- 2.09* 0.92* 0.80* -- 1.11* TOTAL PROTEIN 3.9* -- -- -- 3.6* 3.4* <3.0* -- 4.5* < > = values in this interval not displayed. A/P #alcoholic cirrhosis s/p living donor liver transplant 04/18 #c/f for GI bleed #Melena #Coffee ground emesis #S/p ex-lap, opening of JJ, closure with wound vac - Diet: NPO - NGT to remain - Incision wound vac to remain until POD4 - protonix IV BID - CRYSTAL drains - Hilar drain 325 - subhepatic drain 300 #Bowel Regimen - held while NPO, 1 bowel movement over last 24 hrs #Nausea - Zofran PRN #GI Prophylaxis - Protonix 40 bid NUTRITION BMI: Body mass index is 27.69 kg/m??. Current Diet: Diet/Nutrition Orders Diet NPO Frequency: Effective Now Number of Occurrences: Until Specified Dietary nutrition supplements Frequency: TID Number of Occurrences: Until Specified Order Questions: Select Supplement: Boost Plus-high calorie high protein supplement Prealbumin: A/P: #Risk for Malnutrition - NPO per primary team - Advance diet as per primary FLUIDS / ELECTROLYTES / RENAL Labs: Lab 04/24/25 0436 04/24/25 0000 04/23/25 1811 04/23/25 1146 04/23/25 1130 SODIUM 139 138 138 138 137 POTASSIUM 4.9 5.3 5.4* 5.1 5.1 CHLORIDE 108 108 107 107 106 CO2 26 26 24 24 26 BUN 38* 37* 35* 31* 30* CREATININE 1.25 1.25 1.11 0.95 0.99 GLUCOSE 99 118* 154* 159* 159* CALCIUM 7.6* 7.9* 7.9* 8.4* 8.8 MAGNESIUM 2.4 2.4 2.3 2.3 2.4 PHOSPHORUS 5.0* 5.4* 5.3* 5.0* 5.0* EGFR 58 58 66 80 76 Admission Wt: Weight: 156 lb (70.8 kg) Current Wt: Weight: 166 lb 6.4 oz (75.5 kg) Intake/Output: Intake/Output Summary (Last 24 hours) at 04/24/2025 0651 Last data filed at 04/24/2025 0103 Gross per 24 hour Intake 6095.15 ml Output 2023 ml Net 4072.15 ml UOP: 898 mL/24 hrs IVF: EPINEPHrine (ADRENALIN) 10 mg in sodium chloride 0.9 % 250 mL infusion, Last Rate: Stopped (04/23/25 0950) fentanyl (SUBLIMAZE) IV infusion, Last Rate: 125 mcg/hr (04/23/25 1851) propofol, Last Rate: 30 mcg/kg/min (04/23/25 1800) sodium chloride 0.9 %, Last Rate: 75 mL/hr (04/24/25 0103) Labs: Lab 04/24/25 0436 04/24/25 0000 04/23/25 1811 04/23/25 1146 04/23/25 1130 CO2 26 26 24 24 26 BUN 38* 37* 35* 31* 30* CREATININE 1.25 1.25 1.11 0.95 0.99 EGFR 58 58 66 80 76 Lab 04/24/25 0543 04/24/25 0000 04/23/25 1811 04/23/25 1344 04/23/25 1146 PH ARTERIAL 7.37 7.34* 7.34* 7.33* 7.31* PCO2 ARTERIAL 40 45 44 42 46* PO2 ARTERIAL 107* 102* 107* 88 158* HCO3 ARTERIAL 23 24 23 22 23 BASE EXCESS ARTERIAL -2.0 -1.6 -2.1* -3.7* -3.1* % HBO2 97.3 96.7 96.3 94.7* 98.1* O2 SATURATION ARTERIAL 100 100 100 98 99 A/P: #Fluid Balance - IN: 6095, OUT 2022, UOP 898, Net + 4L - ybarra in place --> I/Os #Electrolytes - Manual Electrolyte Replacement - Daily Renal/Mg - no repletion needed today SKIN / MUSCULOSKELETAL Exam: Normal ROM, no rashes A/P: - No active issues HEMATOLOGIC Labs: Lab 04/24/25 0436 04/24/25 0000 04/23/25 1811 04/23/25 1130 04/23/25 0831 WBC 9.4 10.5 9.1 5.0 6.6 HEMATOCRIT 28.3* 29.6* 31.4* 30.5* 18.5* HEMOGLOBIN 9.9* 10.4* 11.1* 10.7* 6.7* PLATELETS 55* 65* 63* 47* 85* Lab 04/24/25 0436 04/24/25 0000 04/23/25 1811 04/23/25 1344 04/23/25 1130 INR 1.1 1.1 1.1 1.2* 1.2* Lab 04/18/25 1859 04/18/25 1352 04/18/25 0603 FIBRINOGEN LEVEL 249 130* 283 A/P: #Hemorrhagic shock - transfused 4 PRBC, 1FFP, 1 cryo, 1 platelets, + 2 pRBCs prior to OR - No product since OR - Hgb 9.9 from 10.4 - q6 CBC --> Transition to BID this evening #Coagulopathy - Trend INR, TEG PRN active bleeding -- D/c TEG trending, PT/INR daily - Transfuse FFP for R Time >55 or INR >1.7 and bleeding - Transfuse cryoprecipitate for Alpha Angle <55 or low fibrinogen - Transfuse platelets for MA <55 ENDOCRINE Glucose Range: Lab 04/24/25 0438 04/24/25 0436 04/24/25 0012 04/24/25 0000 04/23/25 1811 04/23/25 1809 04/23/25 1146 04/23/25 1130 04/23/25 1129 04/23/25 0426 04/23/25 0223 04/23/25 0026 04/22/25 2304 04/22/25 2112 04/22/25 1633 04/22/25 1205 04/18/25 1859 04/18/25 1700 04/18/25 1600 04/18/25 1506 04/18/25 1410 04/18/25 1339 04/18/25 1256 04/18/25 1211 04/18/25 1116 POC GLU MONITORING DEVICE 103* -- 118* -- -- 145* -- -- 159* -- -- 241* -- 266* 171* 114* < >-- -- -- -- -- -- -- -- POCGLUART -- -- -- -- -- -- -- -- -- -- -- -- -- -- -- -- -- 136* 133* 144* 158* 124* 102* 126* 116* GLUCOSE -- 99 -- 118* 154* -- 159* 159* -- 152* 140* -- 279* -- -- -- < > -- -- -- -- -- -- -- -- < > = values in this interval not displayed. Hgb A1c: Lab Results Component Value Date HGBA1C 4.4 04/11/2025 Insulin Regimen: Insulin Orders Dose Frequency Start End insulin regular (HumuLIN R/NovoLIN R) injection Soln 0-12 Units 0-12 Units Every 6 hours scheduled 04/19/2025 -- Admin Instructions: HIGH ALERT MEDICATION Route: Subcutaneous A/P #Hyperglycemia - HDSSI for FSBG >180 - Daily Renal and FSBG q6h - no correction needed over last 24 hours INFECTIOUS DISEASE Tmax: Temp (24hrs), Av.6 ??F (36.4 ??C), Min:97 ??F (36.1 ??C), Max:98.9 ??F (37.2 ??C) WBC Trend: Lab 04/24/25 0436 04/24/25 0000 04/23/25 1811 04/23/25 1130 04/23/25 0831 WBC 9.4 10.5 9.1 5.0 6.6 UA: No results found for: COLORU , CLARITYU , PH , PROTEINUA , PHUR , LABSPEC , GLUCOSEU , BLOODU , LEUKOCYTESUR , NITRITE , BILIRUBINUR , UROBILINOGEN , RBCUA , WBCUA , BACTERIA , AMORPHOUS , CRYSTAL , CASTS Blood Cultures: Lab Results Component Value Date LABGRAM Rare Polymorphonuclear Leukocytes Seen 04/23/2025 LABGRAM No Organisms Seen; 04/23/2025 Micro Summary: Microbiology Results Date and Time Order Name Sensitivity Status Organisms Specimen ID Source 04/23/2025 9:53 AM Routine Culture plus Stain (Surgical Swab) Preliminary 1 Abdomen 04/23/2025 9:53 AM Fungus culture (Surgical Swab) In process 1 Abdomen 04/23/2025 9:53 AM Anaerobic culture (Surgical Swab) In process 1 Abdomen Current Abx: Current Anti-Infectives Dose Frequency Start End fluconazole (DIFLUCAN) 200 mg in iso-osm sodium chloride 100 mL 200 mg Every 24 hours 04/23/2025 -- Admin Instructions: DO NOT REFRIGERATE. Route: Intravenous piperacillin-tazobactam (ZOSYN) 4.5 g in sodium chloride 0.9 % 100 mL [id number] (Completed) 4.5 g Once 04/23/2025 04/23/2025 Admin Instructions: Use [id number] Adapter - Mix Thoroughly Before Administration Route: Intravenous Linked Group 1: Placed in Followed by Linked Group piperacillin-tazobactam (ZOSYN) 4.5 g in sodium chloride 0.9 % 100 mL [id number] 4.5 g Every 8 hours 04/23/2025 -- Admin Instructions: Use [id number] Adapter - Mix Thoroughly Before Administration Route: Intravenous Linked Group 1: Placed in Followed by Linked Group sulfamethoxazole-trimethoprim (BACTRIM) 400-80 mg per tablet 1 tablet 1 tablet Daily 04/20/2025 -- Route: Oral valGANciclovir (VALCYTE) tablet 450 mg 450 mg Daily 04/21/2025 -- Admin Instructions: LEVEL 2 HAZARDOUS MEDICATION Route: Oral A/P: #Antibiotics - Mary-op abx: Diflucan for take back ppx, Zosyn - no leukocytosis, afebrile, no other signs of infection #Immunosuppression - Prednisone taper - Tacro BID - MMF #Transplant ppx - Bactrim and Valcyte NEUROLOGIC Exam: Alert, oriented, no focal signs, moving all four extremities prior to intubation and seadtion GCS: Amanda Coma Scale Score: 15 (Eye Openin, Best Verbal Response: 5 (ETT), Best Motor Response: 6) No data found. A/P: #Sedation/Analgesia - Propofol gtt, fent gtt - MMPC Plan for tylenol, Robaxin, PRN Dilaudid once extubated PSYCHIATRIC Exam: Intubated and sedation; unable to assess CAM: Overall CAM-ICU : No Delirium RASS: Gomez Agitation Sedation Scale: -1 A/P: #Agitation - Seroquel PRN ICU CHECKLIST Diet: Diet/Nutrition Orders Diet NPO Frequency: Effective Now Number of Occurrences: Until Specified Dietary nutrition supplements Frequency: TID Number of Occurrences: Until Specified Order Questions: Select Supplement: Boost Plus-high calorie high protein supplement Bowel Reg: Held GI PPx: Protonix IV DVT PPx: Held --> Discuss with primary Current Anticoagulation (Only) aspirin chewable tablet 81 mg ([Held by provider] since 04/23/2025 7:29 AM) heparin (porcine) injection 5,000 Units ([Held by provider] since 04/23/2025 12:53 AM) LDA: - Urinary Catheter: Ybarra - Reason: Adequate I/O-- >m Keep - Central Line: Yes - Reason: Hemodynamic instability, Hemodynamic monitoring, and Medications requiring central administration --> D/c - Arterial Line: Yes - Reason: Hemodynamic instability and Hemodynamic monitoring PT/OT: Consulted - PT Recs: Recommendation: Anticipate no further PT needed after discharge (pending further mobility assessment) Equipment Recommended: Defer until further assessment - OT Recs: Recommendation: Home OT Equipment Recommendations: Tub Transfer Bench Tub Transfer Bench Justification: Patient is at risk to fall in shower environment, Patient has decreased activity tolerance requiring use of seat during bathing tasks - GARNISHMENT SPECIALIST Recs: Dispo: Remain in SICU Code Status: Full Code Signed: MOE LUIS MD, 04/24/2025, 6:51 AM [1] No Known Drug Allergies or Adverse Reactions Cosigned by Jaydon Brandt MD at 04/24/2025 10:13 PM EST Associated attestation - Jaydon Brandt MD - 04/24/2025 10:13 PM EST ICU ATTENDING NOTE: This patient was seen by the Surgical ICU team and the Transplant team; I have personally seen thispatient, examined this patient, and my assessment and plan for coordinated critical care managementreveals: I note the following interval events: 35 y.o. 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 She has been ETOH free for several years. She presents today for living donor liver transplant. Admitted to SICU post op. Transferred to [facility] 2 days ago and had a rapid response called. Emergently transferred to sicu. Emergently intubated, central line, A line, code event. Hospital course 04/18/25 OLT living donor 04/23/25 Emergently transferred to SICU, intubated, code event. ROSC. EGD at bedside the UGIB, no active bleeding. Return to OR for evaluation of JJ, no active bleeding, closed anterior wall. Events over 24 hours OR for JJ evaluation. Plan for today Extubation. D/c MAC today. HEENT: No Acute Issues RESPIRATORY: Atelectasis/pulmonary collapse Hypoxia Respiratory acidosis Respiratory failure with hypercarbia Vent Mode: VC-SIMV/PRVC FiO2: [39 %-92 %] 40 % S RR: [14-16] 14 S VT: [410 mL] 410 mL PEEP/CPAP: [0 cm H20-13 cm H20] 8 cm H20 Lab Results Component Value Date PHART 7.37 04/24/2025 PCO2 40 04/24/2025 PO2ART 107 (H) 04/24/2025 [id number] 23 04/24/2025 BEART -2.0 04/24/2025 [id number] 97.3 04/24/2025 [id number] 100 04/24/2025 P:F ratio = 268 Passed SBT. Extubation today. CARDIOVASCULAR: Hypertension, unspecified Shock, Hypovolemic - hold home carvedilol, may resume tomorrrow. - off pressors. NUTRITION: Signs of malnutrition by BMI or weight loss on admission? No No acute issues GASTROINTESTINAL: Cirrhosis, alcoholic Upper GIB. - s/p living donor liver transplant 04/18 - steroid taper, cellcept, tacro per TXP - EGD 04/23 with blood in duodenum but no active bleeding. - PPI BID. - s/p return to OR 04/23 for ex lap, evaluation of JJ without any bleeding noted, anterior wall closed. FLUIDS / ELECTROLYTES: Hyperphosphatemia - trend labs - replace electrolytes as indicated No need to shift at this time. Cont NS @ 75 cc/hr. RENAL: Acute kidney injury - trend labs and UOP. Creatinine improving. Now 1.25 . SKIN/MUSCULOSKELETAL: No acute issues HEMATOLOGIC: Acute post hemorrhagic anemia Coagulopathy, unspecified Thrombocytopenia, unspecified - trend labs - transfuse as indicated per transplant - Trend Hb, INR, TEG ENDOCRINE: Hyperglycemia - on HDSSI. Goal BG < 180. INFECTIOUS DISEASE: Leukocytosis - leukocytosis reactive. No signs of infection. - TXP proph with valcyte, bactrim NEUROLOGIC: No acute issues PSYCHIATRIC, PAIN, SEDATION: Pain Management - off sedation protocol. Start IV tylenol, prn dilaudid. ACTIVE LINES: Patient Lines/Drains/Airways Status Active Epidural Line / PICC Line / PIV Line / ART Line / Line / CVC Line Name Placement date Placement time Site Days PICC Double Lumen 04/21/25 Right Brachial 04/21/25 0839 Brachial 3 Arterial Line 04/23/25 Right Femoral 04/23/25 0453 Femoral 1 CVC Double Lumen 04/23/25 Left Femoral 04/23/25 0516 Femoral 1 Central Line? Yes - Reason: Hemodynamic monitoring d/c mac today. Arterial line? Yes ACTIVE DRAINS: Urinary Catheter? Ybarra - Reason: Adequate I/O DVT Prophylaxis: Contraindicated bleeding, will discuss with primary restarting today. GI Prophylaxis: PPI DISPOSITION: SICU I saw and examined the patient and discussed the case with the resident and agree with the findingsand plan as documented in the resident's note. Total time delivering critical care for this patient including direction of initial assessment, evaluation, development of a plan, discussion with consultants, and family but excluding time spent performing any associated procedures was 33 minutes on 04/24/2025. Jaydon Brandt MD Section of General Surgery Divisions of Trauma, Acute Care Surgery, and Surgical Critical Care [facility] Academic Office [phone] For Transfers, call [phone] * Mike Ventura MD - 04/23/2025 4:29 AM EDTAssociated Order(s): IP CONSULT TO GASTROENTEROLOGY [facility] GI CONSULT NOTE Consulted by: Alejandra Wilson MD Consult Question: Concern for acute GI bleed post liver-transplant History of Present Illness: Mindy Wade is a 35 y.o. woman who is hospitalized following recent living donor liver transplant(04/18/25) for decompensated EtOH/HCV cirrhosis. GI is being consulted for new-onset melena and coffee-ground emesis. The patient underwent right lobe living donor liver transplant with Edna-en-Y hepaticojejunostomy on 04/18 and originally had an uncomplicated post-transplant course. Early this morning around midnight, the patient started feeling off . She subsequently developed multiple episodes of melena with adrop in Hgb to 5.5 (from 9.6). She became more hypotensive and somnolent and was transferred to the SICU. The patient then became acutely short of breath and developed bronchospasm requiring intubation and initiation of epinephrine. An OG was placed with return of a large amount of coffee-ground output. She has continued to have ongoing brown OG output as well as an additional 250 cc of melenic stools since transfer to the SICU a few hours ago. Her Hgb responded appropriately to 3 units PRBCs (f rom 5.5 to 8.6), but given ongoing bleeding she was started on massive transfusion protocol. Total she has been given 5 units PRBCs, 1 unit FFP, and 1 unit cryoprecipitate. She is not on anti-coagulation aside from prophylactic heparin, which she last received last night.Also on aspirin 81 mg daily. INR is 1.4. Plt count is 60,000. On tacrolimus 0.5 mg BID, Cellcept 500 mg BID, Bactrim, and valgancyclovir post-transplant. She has also gotten several doses of methylpre dnisolone. Prior EGD in 07/2024 showed small esophageal varices and moderate GAVE. Review of Systems All systems reviewed and negative except as listed above in HPI. Past 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: Diagnosis Date Abdominal hernia 02/21/2023 Alcoholic hepatitis (CMS-HCC) Anxiety Ascites Chronic diarrhea 08/21/2022 Cirrhosis (CMS-HCC) Cystitis Depression Hepatitis C Past Surgical History: Procedure Laterality Date APPENDECTOMY CYST REMOVAL Right had a cystic lesion under right breast with hematoma and cyst per patient which was removed ESOPHAGOGASTRODUODENOSCOPY N/A 07/28/2024 Procedure: EGD; Surgeon: Mario Ramirez MD; Location: ENDOSCOPY; Service: Gastroenterology; Laterality: N/A; LIVER TRANSPLANTATION N/A 04/18/2025 Procedure: LIVING DONOR LIVER TRANSPLANT; Surgeon: Ludin Jose MD; Location: OR; Service: Transplant; Laterality: N/A; UPPER GASTROINTESTINAL ENDOSCOPY 09/21/2022 Family History Problem Relation Age of Onset Liver disease Father Cirrhosis Father Social History Tobacco Use Smoking status: Former Current packs/day: 0.00 Average packs/day: 0.3 packs/day for 1.2 years (0.3 ttl pk-yrs) Types: Cigarettes Start date: 07/22/2014 Quit date: 07/22/2015 Years since quittin.7 Smokeless tobacco: Never Substance Use Topics Alcohol use: Not Currently Allergies[1] Scheduled Meds: acetaminophen 975 mg Oral Q8H aspirin 81 mg Oral Daily with breakfast [Held by provider] carvediloL 3.125 mg Oral BID cyclobenzaprine 10 mg Oral TID EPINEPHrine 10 mcg/mL in D5W 10 mL IV etomidate etomidate 0.3 mg/kg Intravenous Once fluconazole 200 mg Oral Daily 0900 gabapentin 900 mg Oral TID [Held by provider] heparin 5,000 Units Subcutaneous 3 times per day insulin regular 0-12 Units Subcutaneous Q6H Scheduled ipratropium-albuteroL 3 mL Nebulization RT Q4HRS ipratropium-albuteroL ketamine 0.2 mg/kg Intravenous Once lidocaine 1 patch Transdermal Daily 0900 magnesium sulfate in sterile water 50 mL 2 g Intravenous Once methylprednisolone 125 mg Intravenous Once mycophenolate 500 mg Oral BID norepinephrine pantoprazole 40 mg Oral DAILY 0600 pantoprazole (PROTONIX) IV 80 mg Intravenous Once polyethylene glycol 17 g Oral Daily 0900 predniSONE 40 mg Oral Once Followed by [START ON 04/24/2025] predniSONE 30 mg Oral Once Followed by [START ON 04/25/2025] predniSONE 25 mg Oral Once Followed by [START ON 04/26/2025] predniSONE 20 mg Oral Daily 0900 propofol scopolamine 1 patch Transdermal Q72H senna-docusate 1 tablet Oral BID simethicone 80 mg Oral PC/HS succinylcholine succinylcholine 1 mg/kg Intravenous Once sulfamethoxazole-trimethoprim 1 tablet Oral Daily 0900 tacrolimus 0.5 mg Oral BID valGANciclovir 450 mg Oral Daily 0900 Continuous Infusions: EPINEPHrine (ADRENALIN) 10 mg in sodium chloride 0.9 % 250 mL infusion fentanyl (SUBLIMAZE) IV infusion 50 mcg/hr (04/23/25 0320) propofol 20 mcg/kg/min (04/23/25 0317) sodium chloride 0.9 % sodium chloride 0.9 % sodium chloride 0.9 % sodium chloride 0.9 % PRN Meds: albuterol, dextrose 10% in water OR dextrose 10% in water, EPINEPHrine 10 mcg/mL in D5W 10 mL IV, etomidate, fentanyl (SUBLIMAZE) IV infusion AND fentaNYL, HYDROmorphone OR HYDROmorphone,ipratropium-albuteroL, ipratropium- albuteroL, norepinephrine, ondansetron, oxyCODONE OR oxyCODONE, phenoL, propofol, succinylcholine Prior to Admission Meds: Home Medications Medication Sig Taking? Last Dose carvediloL (COREG) 3.125 MG tablet Take 1 tablet (3.125 mg total) by mouth 2 times a day with meals. Patient taking differently: Take 1 tablet (3.125 mg total) by mouth at bedtime. Yes 04/17/2025 Bedtime furosemide (LASIX) 20 MG tablet TAKE 3 TABLETS(60 MG) BY MOUTH TWICE DAILY Yes 04/17/2025 Morning gabapentin (NEURONTIN) 800 MG tablet Take 1 tablet (800 mg total) by mouth 3 times a day. Yes 04/17/2025 Bedtime acetaminophen (TYLENOL) 325 MG tablet Take 3 tablets (975 mg total) by mouth every 8 hours. aspirin 81 MG chewable tablet Chew 1 tablet (81 mg total) by mouth daily. calcium-vitamin D 500 mg-5 mcg (200 unit) per tablet Take 1 tablet by mouth 2 times a day with meals. enoxaparin (LOVENOX) 40 mg/0.4 mL Syrg Inject 0.4 mLs (40 mg total) subcutaneously daily. famotidine (PEPCID) 20 MG tablet Take 1 tablet (20 mg total) by mouth 2 times a day. fluconazole (DIFLUCAN) 200 MG tablet Take 1 tablet (200 mg total) by mouth daily for 30 days. mycophenolate (CELLCEPT) 250 mg capsule Take 2 capsules (500 mg total) by mouth 2 times a day. naloxone (NARCAN) 4 mg/actuation Oolitic Apply 1 spray in one nostril if needed. Call 911. May repeat dose in other nostril if no response in 3 minutes. ondansetron (ZOFRAN-ODT) 8 MG disintegrating tablet Take 1 tablet (8 mg total) by mouth every 8 hours as needed for Nausea. 04/15/2025 polyethylene glycol (GLYCOLAX) 17 gram/dose powder Mix 1 capful (17 g) in 8 oz of liquid and drink by mouth daily as needed (Constipation). predniSONE (DELTASONE) 5 MG tablet Take 4 tablets (20 mg total) by mouth daily. senna-docusate (SENNOSIDES-DOCUSATE SODIUM) 8.6-50 mg per tablet Take 1 tablet by mouth at bedtime as needed for Constipation. sulfamethoxazole-trimethoprim (BACTRIM) 400-80 mg per tablet Take 1 tablet by mouth daily. tacrolimus (PROGRAF) 1 MG capsule Take 10 capsules (10 mg total) by mouth 2 times a day. valGANciclovir (VALCYTE) 450 mg tablet Take 1 tablet (450 mg total) by mouth daily. Vitals: Temp: [97.1 ??F (36.2 ??C)-98.5 ??F (36.9 ??C)] 97.1 ??F (36.2 ??C) Heart Rate: [71-116] 116 Resp: [11-19] 13 BP: (81-137)/(47-88) 81/60 FiO2: [60 %-100 %] 60 % Intake/Output Summary (Last 24 hours) at 04/23/2025 0429 Last data filed at 04/23/2025 0055 Gross per 24 hour Intake 1200 ml Output 2085 ml Net -885 ml Physical Exam Gen: Intubated HEENT: anicteric sclera, EOMI Neck: Neck is supple. CV: Tachycardic, regular rate Lungs: on ventilator Abdomen: Soft, non-distended, well-approximated surgical incision site with sergio intact, two abdominal drains with serosanguinous output Extremities: Mild bilateral lower extremity edema, warm and well-perfused Skin: No bruising or rash noted. Neuro: Intubated, non-responsive Labs and Imaging reviewed: Pertinent findings per HPI. Assessment: Mindy Wade is a 35 y.o. woman s/p recent right lobe living donor liver transplant (04/18/25) whois being evaluated for new-onset melena and coffee- ground emesis 5 days post-transplant. The differential for the patient's upper GI bleed is broad including peptic ulcer disease, bleedingfrom the jejunojejunostomy or hepaticojejunostomy anastomotic sites, angiodysplasia, esophagitis/gastritis, and GAVE among others. Given the patient's significant drop in Hgb and tenuous hemodynamic status, she requires urgent endoscopy for evaluation. PLAN / RECOMMENDATIONS: Will perform EGD +/- push enteroscopy this morning Keep patient NPO IV pantoprazole 40 mg BID Ongoing resuscitation per primary team Continue to trend Hgb, transfuse to maintain Hgb > 7 Okay to continue ASA 81 mg daily Additional recommendations to come following endoscopy We will continue to follow along. If you have any questions, please contact the GI fellow on-call. Plan discussed with Dr. Moyer. ELENI Ventura MD Gastroenterology Fellow, PGY4 [1] No Known Drug Allergies or Adverse Reactions Cosigned by Kelsey Moyer MD at 04/23/2025 11:26 AM EDT Associated attestation - Kelsey Moyer MD - 04/23/2025 11:26 AM EDT Attending Physician's Note: I saw and examined the patient. I discussed with Dr. Ventura and agree with fellow's findings and plan as documented in the note. Copied / pasted information was reviewed and confirmed to be accurate.>10 point POS was performed and negative unless otherwise documented in the note. Please also see below. 35 y.o. with H/O ETOH/HCV related cirrhosis S/P living donor liver transplant with Edna en Y hepaticojejunostomy, on 04/18/25 who developed melena and coffee ground emesis. Hgb dropped to 5.5 from 9.6 and required blood transfusion. Patient is intubated and sedated. PE Vitals: 04/23/25 0854 04/23/25 0855 04/23/25 0859 04/23/25 0900 BP: 91/61 98/55 92/66 BP Location: Patient Position: BP Cuff Size: Pulse: 98 99 94 96 Resp: (!) 7 11 9 Temp: 97 ??F (36.1 ??C) TempSrc: Axillary SpO2: 98% 98% 97% Weight: Height: In no apparent cardiopulmonary distress Sedated and intubated. Abdomen is soft, non-tender No LE edema A&P 35 y.o. year old female with complex medical issues as detailed in HPI # S/P living donor OLT with Edna en Y hepaticojejunostomy # Melena. Plan: - Will proceed with EGD/push enteroscopy. - Continue PPI BID. - Transfuse as needed. Kelsey Moyer MD GI and Hepatology This note was completely edited, written and reviewed by me and consists of information cut and pasted from the my most recent note, my smart phrases and other Epic tools. I have personally reviewed all aspects of this note to at least include reviewing this patient's chart and problem list, updating the history, physical exam, lab and procedure results, and assessment and plan as detailed above and below. As such this note reflects my current evaluation and management for this patient. * Drea Campbell MD - 04/23/2025 1:23 AM EDT Surgical ICU Consult Note / Progress Note Patient: Mindy Wade Date/Time: 04/23/2025 5:03 AM HPI: Mindy Wade is a 35 y.o. 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 She has been ETOH free for several years who presented on 04/18/2025 from the floor for concerns of shock. She was having destiney red blood from stool, hypotension, lehargy, hypotension. She is post-op day 4 s/p liver transplant from living donor transplant. Admitted to SICU with concerns for hemorrhagic shock. Home Medications: Albuterol Carvedilol 3.125 mg BID Lasix 60 mg BID Gabapentin 800 TID Spironolactone 150 BID MEDICAL HISTORY: Past 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: Diagnosis Date Abdominal hernia 02/21/2023 Alcoholic hepatitis (CMS-HCC) Anxiety Ascites Chronic diarrhea 08/21/2022 Cirrhosis (CMS-HCC) Cystitis Depression Hepatitis C Past Surgical History: Procedure Laterality Date APPENDECTOMY CYST REMOVAL Right had a cystic lesion under right breast with hematoma and cyst per patient which was removed ESOPHAGOGASTRODUODENOSCOPY N/A 07/28/2024 Procedure: EGD; Surgeon: Mario Ramirez MD; Location: ENDOSCOPY; Service: Gastroenterology; Laterality: N/A; LIVER TRANSPLANTATION N/A 04/18/2025 Procedure: LIVING DONOR LIVER TRANSPLANT; Surgeon: Ludin Jose MD; Location: OR; Service: Transplant; Laterality: N/A; UPPER GASTROINTESTINAL ENDOSCOPY 09/21/2022 Home Medications Medication Sig Taking? Last Dose carvediloL (COREG) 3.125 MG tablet Take 1 tablet (3.125 mg total) by mouth 2 times a day with meals. Patient taking differently: Take 1 tablet (3.125 mg total) by mouth at bedtime. Yes 04/17/2025 Bedtime furosemide (LASIX) 20 MG tablet TAKE 3 TABLETS(60 MG) BY MOUTH TWICE DAILY Yes 04/17/2025 Morning gabapentin (NEURONTIN) 800 MG tablet Take 1 tablet (800 mg total) by mouth 3 times a day. Yes 04/17/2025 Bedtime acetaminophen (TYLENOL) 325 MG tablet Take 3 tablets (975 mg total) by mouth every 8 hours. aspirin 81 MG chewable tablet Chew 1 tablet (81 mg total) by mouth daily. calcium-vitamin D 500 mg-5 mcg (200 unit) per tablet Take 1 tablet by mouth 2 times a day with meals. enoxaparin (LOVENOX) 40 mg/0.4 mL Syrg Inject 0.4 mLs (40 mg total) subcutaneously daily. famotidine (PEPCID) 20 MG tablet Take 1 tablet (20 mg total) by mouth 2 times a day. fluconazole (DIFLUCAN) 200 MG tablet Take 1 tablet (200 mg total) by mouth daily for 30 days. mycophenolate (CELLCEPT) 250 mg capsule Take 2 capsules (500 mg total) by mouth 2 times a day. naloxone (NARCAN) 4 mg/actuation Oolitic Apply 1 spray in one nostril if needed. Call 911. May repeat dose in other nostril if no response in 3 minutes. ondansetron (ZOFRAN-ODT) 8 MG disintegrating tablet Take 1 tablet (8 mg total) by mouth every 8 hours as needed for Nausea. 04/15/2025 polyethylene glycol (GLYCOLAX) 17 gram/dose powder Mix 1 capful (17 g) in 8 oz of liquid and drink by mouth daily as needed (Constipation). predniSONE (DELTASONE) 5 MG tablet Take 4 tablets (20 mg total) by mouth daily. senna-docusate (SENNOSIDES-DOCUSATE SODIUM) 8.6-50 mg per tablet Take 1 tablet by mouth at bedtime as needed for Constipation. sulfamethoxazole-trimethoprim (BACTRIM) 400-80 mg per tablet Take 1 tablet by mouth daily. tacrolimus (PROGRAF) 1 MG capsule Take 10 capsules (10 mg total) by mouth 2 times a day. valGANciclovir (VALCYTE) 450 mg tablet Take 1 tablet (450 mg total) by mouth daily. Scheduled Meds: acetaminophen 975 mg Oral Q8H aspirin 81 mg Oral Daily with breakfast [Held by provider] carvediloL 3.125 mg Oral BID cyclobenzaprine 10 mg Oral TID EPINEPHrine 10 mcg/mL in D5W 10 mL IV etomidate etomidate 0.3 mg/kg Intravenous Once fluconazole 200 mg Oral Daily 0900 gabapentin 900 mg Oral TID [Held by provider] heparin 5,000 Units Subcutaneous 3 times per day insulin regular 0-12 Units Subcutaneous Q6H Scheduled ipratropium-albuteroL 3 mL Nebulization RT Q4HRS ipratropium-albuteroL 3 mL Nebulization RT Q4H WA ipratropium-albuteroL lidocaine 1 patch Transdermal Daily 0900 magnesium sulfate 1 g Intravenous Q1H CARIE mycophenolate 500 mg Oral BID norepinephrine pantoprazole 40 mg Oral DAILY 0600 polyethylene glycol 17 g Oral Daily 0900 predniSONE 40 mg Oral Once Followed by [START ON 04/24/2025] predniSONE 30 mg Oral Once Followed by [START ON 04/25/2025] predniSONE 25 mg Oral Once Followed by [START ON 04/26/2025] predniSONE 20 mg Oral Daily 0900 propofol scopolamine 1 patch Transdermal Q72H senna-docusate 1 tablet Oral BID simethicone 80 mg Oral PC/HS sodium bicarbonate 50 mEq Intravenous Once sodium chloride 15 mL Nebulization RT BID succinylcholine succinylcholine 1 mg/kg Intravenous Once sulfamethoxazole-trimethoprim 1 tablet Oral Daily 0900 tacrolimus 0.5 mg Oral BID valGANciclovir 450 mg Oral Daily 0900 Continuous Infusions: EPINEPHrine (ADRENALIN) 10 mg in sodium chloride 0.9 % 250 mL infusion fentanyl (SUBLIMAZE) IV infusion 50 mcg/hr (04/23/25319) propofol 20 mcg/kg/min (04/23/25316) sodium chloride 0.9 % sodium chloride 0.9 % sodium chloride 0.9 % sodium chloride 0.9 % sodium chloride 0.9 % PRN Meds: albuterol, dextrose 10% in water OR dextrose 10% in water, EPINEPHrine 10 mcg/mL in D5W 10 mL IV, etomidate, fentanyl (SUBLIMAZE) IV infusion AND fentaNYL, HYDROmorphone OR HYDROmorphone, ipratropium- albuteroL, ipratropium-albuteroL, norepinephrine, ondansetron, oxyCODONE OR oxyCODONE, phenoL, propofol, succinylcholine Allergies[1] Social History Tobacco Use Smoking status: Former Current packs/day: 0.00 Average packs/day: 0.3 packs/day for 1.2 years (0.3 ttl pk-yrs) Types: Cigarettes Start date: 07/22/2014 Quit date: 07/22/2015 Years since quittin.7 Smokeless tobacco: Never Substance Use Topics Alcohol use: Not Currently Family History Problem Relation Age of Onset Liver disease Father Cirrhosis Father REVIEW OF SYSTEMS: Review of systems conducted with patient and pertinent positives are noted in HPI. INTERVAL EVENTS 24 HOUR EVENTS: - Admitted to SICU - Hypoxic failure - Intubated HEENT Exam: Normocephalic, atraumatic, PERRL A/P: - OG remains to low wall suction - No active issues RESPIRATORY Exam: No acute distress, non-labored respirations, saturating well on mechanical ventilation Vent Settings: Vent Mode: VC-AC/PRVC FiO2: [60 %-100 %] 60 % S RR: [16] 16 S VT: [450 mL] 450 mL Spont TV: [0 mL] 0 mL Inspiratory Time Set: [1 sec] 1 sec PIP: [36 cm H2O-37 cm H2O] 36 cm H2O PEEP/CPAP: [10 cm H20] 10 cm H20 Patient Vitals for the past 12 hrs: Vent Mode Resp Rate (Set) Vt (Set, mL) Spont TV Inspiratory Time Set PIP Observed PEEP/CPAP 04/23/25409 -- 16 450 mL 0 mL 1 sec 36 cm H2O 10 cm H20 04/23/25325 VC-AC/PRVC 16 450 mL 0 mL 1 sec 37 cm H2O 10 cm H20 Other O2 Device: Patient Vitals for the past 5 hrs: O2 Device FiO2 O2 Flow Rate (L/min) 04/23/25409 -- 60 % -- 04/23/25325 ETT;Vent 100 % -- 04/23/25 0122 Nasal Cannula -- 4 L/min 04/23/25 0020 None (Room air) -- 0 L/min Total RSBI: 11 (04/18/252245) Blood Gas: Lab 04/23/25 0426 04/18/25224504/18/25 1859 PH ARTERIAL 7.14* 7.38 7.40 PCO2 ARTERIAL 61* 38 33* PO2 ARTERIAL 122* 136* 158* HCO3 ARTERIAL 19* 23 22 BASE EXCESS ARTERIAL -8.3* -2.3* -3.6* % HBO2 96.2 96.6 95.1 O2 SATURATION ARTERIAL 98 100 100 - P:F Ratio: 203 IBW: [place] body weight: 57 kg (125 lb 10.6 oz) Adjusted ideal body weight: 64.4 kg (141 lb 15.3 oz) A/P: #Hx of latent TB s/p tx #Bronchospasm #Supplemental Oxygen Requirement #Acute Hypoxic Respiratory Failure Received Mg 2g, epi pushes, Calcium gluconate during sever bronchospasm phase that lead to respiratory failure. Unable to move chest wall. Turned pale with acrocyanosis - Pulmonary toilet, IS regularly - Encourage cough - Duonebs, hypertonic saline, percussion, NT suctioning - Wean O2 as tolerated - Intubated, sedated - Goal SpO2: >92% - Goal TV: 6-8 cc/kg - Daily CXR - ABG q6h - Duonebs - Bronchoscopy PRN for mucus plugging - Wean FiO2 and PEEP as tolerated - Daily SBT CARDIOVASCULAR Exam: Regular rate, regular rhythm Vitals: Temp: [97.1 ??F (36.2 ??C)-98.5 ??F (36.9 ??C)] 97.1 ??F (36.2 ??C) Heart Rate: [71-116] 116 Resp: [11-19] 13 BP: (81-137)/(47-88) 81/60 FiO2: [60 %-100 %] 60 % Hemodynamics: No data found. Cardiac Labs: Lab 04/23/25 0426 04/23/25 0223 04/22/25 2304 04/19/25 0837 04/19/25 0633 04/19/25 0227 HSTROP -- -- -- -- -- 15* LACTATE BLOOD ARTERIAL 1.3 -- -- -- -- -- LACTATE -- 1.9 2.7* 1.3 1.4 1.5 Prior Cardiac Data: - Echo (02/01/25): LVEF 55-60% - Left ventricle: The cavity size is [...] baseline or with provocation, shows a very ozutfsdnyh-zj-zxld atrial level shunt. There is a shunt which may be intrapulmonary or intracardiac, but cannot be confidently differentiated. - Tricuspid valve: There is mild-moderate regurgitation. - Pulmonary arteries: The peak systolic pressure is 37mm Hg. A/P: #Hypertension, unspecified #Hemorrhagic shock - transfused 4 PRBC, 1FFP, cryo - trend CBCs - plan for CT scan when stable - calcium replacement GASTROINTESTINAL Exam: Soft, distended, tender int he LUQ mainly Drain Output: Output by Drain (mL) 04/21/25 07 - 04/21/25 1900 04/21/25 190 - 04/22/25 0700 04/22/25 0701 - 04/22/25 1900 04/22/25 190 - 04/23/25 0503 Drain sub hepatic #1 Abdomen Right;Superior 170 325 215 275 Drain hilar #2 Abdomen Right;Superior 175 275 90 60 GI Labs: Lab 04/23/2522204/22/25230304/22/2506 04/21/25 0904/20/25 1809 04/20/25 0133 ALK PHOS 63 -- 83 56 49 54 ALT 89* -- 144* 134* 137* 127* AST 63* -- 116* 122* 162* 163* BILIRUBIN TOTAL 1.3 -- 1.9* 1.6* 1.6* 1.6* ALBUMIN 2.0* -- 3.1* 3.0* 2.6* 2.8* ALBUMINKID 2.0* 2.5* 3.1* 3.0* 2.6* 2.8* BILIRUBIN DIRECT 0.80* -- 1.11* 0.91* 0.30 0.59* TOTAL PROTEIN <3.0* -- 4.5* 4.5* 4.1* 4.4* A/P: #alcoholic cirrhosis s/p living donor liver transplant 04/18 #c/f for GI bleed #Melena #Coffee ground emesis - Diet: NPO - NGT - GI consult - protonix #Bowel Regimen - hold bowel reg while NPO #Nausea - Zofran PRN #GI Prophylaxis - Protonix 40 bid NUTRITION BMI: Body mass index is 27.69 kg/m??. Current Diet: Diet/Nutrition Orders Diet NPO Frequency: Effective Now Number of Occurrences: Until Specified Dietary nutrition supplements Frequency: TID Number of Occurrences: Until Specified Order Questions: Select Supplement: Boost Plus-high calorie high protein supplement Prealbumin: A/P: #Risk for Malnutrition - NPO per primary team - Advance diet as per primary FLUIDS / ELECTROLYTES / RENAL Labs: Lab 04/23/2522204/22/25230304/22/2560504/21/2589904/20/251808 SODIUM 134 133 137 136 133 POTASSIUM 4.6 4.8 4.2 4.1 5.4* CHLORIDE 107 106 108 109 108 CO2 22 23 22 21 19* BUN 39* 40* 43* 64* 57* CREATININE 1.28 1.34* 1.14 1.40* 1.25 GLUCOSE 140* 279* 80 69* 109* CALCIUM 6.3* 6.8* 7.7* 7.4* 7.0* MAGNESIUM 1.9 2.0 2.7* 2.7* 2.6* PHOSPHORUS 5.0* 4.4 2.7 3.9 4.3 EGFR 56 53 64 50 58 Admission Wt: Weight: 156 lb (70.8 kg) Current Wt: Weight: 166 lb 6.4 oz (75.5 kg) Intake/Output: Intake/Output Summary (Last 24 hours) at 04/23/2025 0503 Last data filed at 04/23/2025 0055 Gross per 24 hour Intake 1200 ml Output 2085 ml Net -885 ml UOP: 1,270 mL/24 hrs IVF: EPINEPHrine (ADRENALIN) 10 mg in sodium chloride 0.9 % 250 mL infusion fentanyl (SUBLIMAZE) IV infusion, Last Rate: 50 mcg/hr (04/23/25 0320) propofol, Last Rate: 20 mcg/kg/min (04/23/25 0317) sodium chloride 0.9 % sodium chloride 0.9 % sodium chloride 0.9 % sodium chloride 0.9 % sodium chloride 0.9 % Labs: Lab 04/23/25 0223 04/22/25 2304 04/22/25 0606 04/21/25 0900 04/20/25 1809 CO2 22 23 22 21 19* BUN 39* 40* 43* 64* 57* CREATININE 1.28 1.34* 1.14 1.40* 1.25 EGFR 56 53 64 50 58 Lab 04/23/25 0426 04/18/25 2246 04/18/25 1859 PH ARTERIAL 7.14* 7.38 7.40 PCO2 ARTERIAL 61* 38 33* PO2 ARTERIAL 122* 136* 158* HCO3 ARTERIAL 19* 23 22 BASE EXCESS ARTERIAL -8.3* -2.3* -3.6* % HBO2 96.2 96.6 95.1 O2 SATURATION ARTERIAL 98 100 100 A/P: #Fluid Balance - Goal UOP 0.5 mL/kg/hr - Strict I/Os - brennon #Electrolytes - ICU Electrolyte Replacement Protocol - Daily Renal/Mg SKIN / MUSCULOSKELETAL Exam: Normal ROM, no rashes A/P: - No active issues HEMATOLOGIC Labs: Lab 04/23/25 0426 04/23/25 0223 04/23/25 0003 04/22/25 2304 04/22/25 0606 WBC 11.4* 7.7 7.0 6.8 4.1 HEMATOCRIT BLOOD GAS 30.0* -- -- -- -- HEMATOCRIT 28.4* 24.9* 16.1* 18.0* 27.7* HEMOGLOBIN BLOOD GAS 9.9* -- -- -- -- HEMOGLOBIN 9.6* 8.6* 5.5* 6.1* 9.6* PLATELETS 56* 60* 85* 88* 48* Lab 04/23/25 0426 04/21/25 0900 04/20/25 0133 04/19/25 1727 04/19/25 1241 INR 1.4* 1.4* 1.7* 1.9* 1.8* Lab 04/18/25 1859 04/18/25 1352 04/18/25 0603 FIBRINOGEN LEVEL 249 130* 283 A/P: #Hemorrhagic shock - transfused 4 PRBC, 1FFP, cryo - q6 CBC #Coagulopathy - Trend INR, TEG PRN active bleeding - Transfuse FFP for R Time >55 or INR >1.7 and bleeding - Transfuse cryoprecipitate for Alpha Angle <55 or low fibrinogen - Transfuse platelets for MA <55 ENDOCRINE Glucose Range: Lab 04/23/25 0223 04/23/25 0026 04/22/25 2304 04/22/25 2112 04/22/25 1633 04/22/25 1205 04/22/25 0606 04/22/25 0558 04/21/25 2319 04/21/25 1817 04/21/25 1252 04/21/25 0900 04/20/25 1830 04/20/25 1809 04/20/25 0534 04/20/25 0133 04/20/25 0126 04/19/25 1727 04/19/25 1725 04/19/25 1241 04/18/25 1859 04/18/25 1700 04/18/25 1600 04/18/25 1506 04/18/25 1410 04/18/25 1339 04/18/25 1256 04/18/25 1211 04/18/25 1116 POC GLU MONITORING DEVICE -- 241* -- 266* 171* 114* -- 80 109* 137* 118* -- < > -- < > -- < > -- < > -- < > -- -- -- -- -- -- -- -- POCGLUART -- -- -- -- -- -- -- -- -- -- -- -- -- -- -- -- -- -- -- -- -- 136* 133* 144* 158* 124* 102* 126* 116* GLUCOSE 140* -- 279* -- -- -- 80 -- -- -- -- 69* -- 109* -- 150* -- 133* -- 120* < > -- -- ---- -- -- -- -- < > = values in this interval not displayed. Hgb A1c: Lab Results Component Value Date HGBA1C 4.4 04/11/2025 Insulin Regimen: Insulin Orders Dose Frequency Start End insulin regular (HumuLIN R/NovoLIN R) injection Soln 0-12 Units 0-12 Units Every 6 hours scheduled 04/19/2025 -- Admin Instructions: HIGH ALERT MEDICATION Route: Subcutaneous A/P: #Hyperglycemia - HDSSI for FSBG >180 - Daily Renal and FSBG q6h INFECTIOUS DISEASE Tmax: Temp (24hrs), Av.8 ??F (36.6 ??C), Min:97.1 ??F (36.2 ??C), Max:98.5 ??F (36.9 ??C) WBC Trend: Lab 04/23/25 0426 04/23/25 0223 04/23/25 0003 04/22/25 2304 04/22/25 0606 WBC 11.4* 7.7 7.0 6.8 4.1 UA: No results found for: COLORU , CLARITYU , PH , PROTEINUA , PHUR , LABSPEC , GLUCOSEU , BLOODU , LEUKOCYTESUR , NITRITE , BILIRUBINUR , UROBILINOGEN , RBCUA , WBCUA , BACTERIA , AMORPHOUS , CRYSTAL , CASTS Blood Cultures: Lab Results Component Value Date LABGRAM Cytospin Results: 09/02/2023 LABGRAM Mononuclear Cells Seen; 09/02/2023 LABGRAM Polymorphonuclear Leukocytes Seen; 09/02/2023 LABGRAM No Organisms Seen; 09/02/2023 Micro Summary: Microbiology Results No orders found from 03/25/2025 to 04/24/2025. Current Abx: Current Anti-Infectives Dose Frequency Start End fluconazole (DIFLUCAN) tablet 200 mg 200 mg Daily 04/21/2025 -- Admin Instructions: DO NOT CRUSH OR CHEW. Route: Oral sulfamethoxazole-trimethoprim (BACTRIM) 400-80 mg per tablet 1 tablet 1 tablet Daily 04/20/2025 -- Route: Oral valGANciclovir (VALCYTE) tablet 450 mg 450 mg Daily 04/21/2025 -- Admin Instructions: LEVEL 2 HAZARDOUS MEDICATION Route: Oral A/P: #Leukocytosis - Mild leukocytosis likely reactive in post-operative/mary-trauma period - Monitor for fevers or other clinical signs of infection #Antibiotics - as per primary NEUROLOGIC Exam: Alert, oriented, no focal signs, moving all four extremities prior to intubation and seadtion GCS: Amanda Coma Scale Score: 15 (Eye Openin, Best Verbal Response: 5, Best Motor Response: 6) No data found. A/P: #Sedation/Analgesia - Propofol [facility] Exam: Intubated and sedation; unable to assess CAM: Overall CAM-ICU : No Delirium RASS: Gomez Agitation Sedation Scale: -2 A/P: #Agitation - Seroquel PRN ICU CHECKLIST Diet: Diet/Nutrition Orders Diet NPO Frequency: Effective Now Number of Occurrences: Until Specified Dietary nutrition supplements Frequency: TID Number of Occurrences: Until Specified Order Questions: Select Supplement: Boost Plus-high calorie high protein supplement Bowel Reg: Held GI PPx: Protonix IV DVT PPx: Held Current Anticoagulation (Only) aspirin chewable tablet 81 mg heparin (porcine) injection 5,000 Units ([Held by provider] since 04/23/2025 12:53 AM) LDA: - Urinary Catheter: Ybarra - Reason: Adequate I/O - Central Line: Yes - Reason: Hemodynamic instability, Hemodynamic monitoring, and Medications requiring central administration - Arterial Line: Yes - Reason: Hemodynamic instability and Hemodynamic monitoring PT/OT: Consulted - PT Recs: Recommendation: Anticipate no further PT needed after discharge (pending further mobility assessment) Equipment Recommended: Defer until further assessment - OT Recs: Recommendation: Home OT Equipment Recommendations: Tub Transfer Bench Tub Transfer Bench Justification: Patient is at risk to fall in shower environment, Patient has decreased activity tolerance requiring use of seat during bathing tasks - GARNISHMENT SPECIALIST Recs: Dispo: Remain in SICU Code Status: Full Code Signed: DREA CAMPBELL MD, MD 04/23/2025, 5:03 AM [1] No Known Drug Allergies or Adverse Reactions Cosigned by Manuela Lang MD at 04/23/2025 7:15 AM EDT Associated attestation - Manuela Lang MD - 04/23/2025 7:15 AM EDT ICU ATTENDING NOTE: This patient was seen by the Surgical ICU team and the Transplant team; I have personally seen thispatient, examined this patient, and my assessment and plan for coordinated critical care managementreveals: I note the following interval events: 35 y.o. 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 She has been ETOH free for several years. She presents today for living donor liver transplant. Admitted to SICU post op. Transferred back down to SICU 04/23 for acute blood loss anemia, melena, hypotension. Transfused 3 units PRBC immediately followed by 1PRBC/1FFP. Unable to place radial a-line so R femoral jaden placed. During this procedure patient had an asthma exacerbation resulting in bronchospasm and airway loss. We pushed epinephrine as breathing treatment initiated but progressed to intubation and L femoralCVL placement. Administering albuterol, epi gtt, and magnesium. Sats for a brief period were undetectable but never lost a pulse. NGT placed, follow up labs, if stabilizes, transplant team would likea triphasic CT and GI consult if all intraluminal. Hospital course 04/18/25 OLT living donor 04/23 transferred back to SICU, intubated HEENT: No Acute Issues RESPIRATORY: Atelectasis/pulmonary collapse Hypoxia Bronchospasm Hypoxic respiratory failure - vent support - epi gtt - magnesium - albuterol Lab Results Component Value Date PHART 7.38 04/18/2025 PCO2 38 04/18/2025 PO2ART 136 (H) 04/18/2025 [id number] 23 04/18/2025 BEART -2.3 (L) 04/18/2025 CRG2WCV 96.6 04/18/2025 [id number] 100 04/18/2025 P:F ratio = No PaO2 result within 12 hours. CARDIOVASCULAR: Hypertension, unspecified Hemorrhagic shock - transfused 4 PRBC, 1FFP - trend CBCs - plan for CT scan when stable - calcium replacement NUTRITION: Signs of malnutrition by BMI or weight loss on admission? No No acute issues Diet: NPO NGT- coffee ground output GASTROINTESTINAL: Cirrhosis, alcoholic GIB - s/p living donor liver transplant 04/18 - trend labs and output - continue NGT, NPO - IVF, PPI BID - PRN zofran - triphasic CT if stabilizes - GI consult FLUIDS / ELECTROLYTES: Hypocalcemia - trend labs - replace electrolytes as indicated RENAL: ALINE - trend labs and UOP SKIN/MUSCULOSKELETAL: No acute issues HEMATOLOGIC: Acute blood loss anemia thrombocytopenia - trend labs - transfuse as indicated ENDOCRINE: Hyperglycemia - SSI INFECTIOUS DISEASE: No acute issues NEUROLOGIC: No acute issues PSYCHIATRIC, PAIN, SEDATION: Pain Management - MMPC ACTIVE LINES: Patient Lines/Drains/Airways Status Active Epidural Line / PICC Line / PIV Line / ART Line / Line / CVC Line Name Placement date Placement time Site Days PICC Double Lumen 04/21/25 Right Brachial 04/21/25 0839 Brachial 1 Central Line? Yes - Reason: Hemodynamic monitoring L femoral cordis Arterial line? Yes R femoral ACTIVE DRAINS: Urinary Catheter? Ybarra - Reason: Adequate I/O DVT Prophylaxis: Subcutaneous Heparin GI Prophylaxis: H2 Nataly DISPOSITION: SICU I saw and examined the patient and discussed the case with the resident and agree with the findingsand plan as documented in the resident's note. Total time delivering critical care for this patient including direction of initial assessment, evaluation, development of a plan, discussion with consultants, and family but excluding time spent performing any associated procedures was 40 minutes on 04/23/2025. MANUELA LANG MD Section of General Surgery Divisions of Trauma, Acute Care Surgery, and Surgical Critical Care [facility] Academic Office [phone] For Transfers, call [phone] * Chava Mcgraw RN - 04/21/2025 8:38 AM EDTAssociated Order(s): IP CONSULT TO PICC TEAM Images from the original note were not included. ALEJANDRO PICC placed in right brachial vein. Verified with ECG and approved for immediate use Length: 35CM/0 * ASIM Enriquez, SPECIFICATIONS WRITER - 04/19/2025 8:31 AM EDT HEALTH Care Management/Social Work Assessment Patient Information Patient Name: Mindy Wade Hospital Day: 1 Inpatient/Observation: Inpatient Admit Date: 04/18/2025 Admission Diagnosis: Liver transplant recipient (CMS-HCC) [Z94.4] Attending provider: Ludin Jose MD PCP: GEOFF GARVES DO Home Pharmacy: [facility] [address] [facility] [address] [id number] - [place], [place] [address] [facility] [address] [place] [address] [address] [place] [address] [address] [facility] [id number] [facility] [address] [facility] [place] [address] [facility] [address] [address] Pertinent Medications Anticoagulation therapy: No New Diabetic: Yes Issues related to obtaining medications: none Payor Information Medical Insurance Coverage: Payor: [employer] MANAGED MEDICARE / Plan: [employer] MEDICARE / Product Type: *No Product type* / Secondary Payor: none Functional Assessment Functional Assessment Assessment Information Obtained From:: Patient, Chart Review Current Mental Status: Awake, Oriented to Person, Oriented to Place, Oriented to Time, Oriented to Situation Mental Status Prior to Admission: Unable to Assess Mental Health History: Yes (Anxiety, Depression) Behavioral Health Agency Involvement: No Do you need Mental Health treatment resources?: No Patient Requests Social Work Consult?: No Substance Abuse: Yes Last Substance Abuse Date: 07/24/23 Treatment History: Outpatient [facility] Do you need Substance Abuse Treatment Resources?: No Substance Abuse Treatment Resources Provided: none Social Work Consult for Substance Abuse Ordered?: No Suicide Attempts: No Activities of Daily Living: Independent Work History: Disabled Marital Status: Number of children and their names: Caitlin Hall Kamdyn Relative Search Completed: No Demographics Correct:: Yes Current Living Arrangements Current Living Arrangements Current Living Arrangements: Home Type of Housing: House Who do you live with?: With Family What family member?: Spouse and children One Story or Two (check all that apply): One Story History of Falls?: No Community Services Community Services Community Services at Home: Not Applicable Was any abuse reported by patient?: No Status & Connection to VA Services Status & Connection to VA Services Are you a ?: No Support Systems Emergency contact: Extended Emergency Contact Information Primary Emergency Contact: KHLOE WADE Mobile Relation: Spouse Support Systems Legal Status: N/A Primary Caregiver: Self Marital Status: Number of children and their names: Caitlin Hall Kamdyn Relative Search Completed: No Demographics Correct:: Yes Expected Discharge Disposition: Home with Home Care Next of Kin: Khloe Wade Next of Kin Relationship: Spouse Next of Kin Assessment Information Obtained From:: Patient, Chart Review Other Pertinent Information consult request reviewed and completed. [facility] Pham Chung verified demographic and emergency contact information. [facility] verified patients LNOKand HCPOA and assessment was completed by chart review. [facility] will provide active listening and willwork with patient's family, medical team and any community providers to assist in coordination of care for discharge planning. [facility] will provide intervention and contact based on the patient and family's needs. [facility] verified patient's supports at discharge. [facility] discussed transplant needs, follow up appointments, and lab draws. Per H&P, Mindy Wade is a 35 y.o. 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 Patient is a female who is and living with her spouse and children in their home in the community. Patient reported she has three children. Patient reported that she is independent with ADLs. Patient reported that she is not a . 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 Patient does not report financial concerns/difficulties at this time. Patient is not using community resources to meet her needs at this time. Patient does not have Advance Directives. Patient's legal next of kin is Khloe Wade-spouse. Patient has a history of and current mental health concerns or diagnoses of Depression and Anxiety and takes prescribed medication Gabapentin for anxiety and tremors and Remeron for sleep. Patient reports a history of or current alcohol abuse, tobacco use, and/or drug/illicit substance use. Patient has a history of polysubstance use, opioids, cocaine, and Heroin/fentanyl. Patient also has a substantial alcohol use history. Patient reports sobriety since July 2023. Patient has been to [facility] for substance use treatment. Patient does not use home oxygen, DME use, or dialysis. Patient has no history of jail facility or inpatient rehabilitation facility admissions. Patient has no history of home health care services. PCP: Geoff Graves SWCM confirmed with patient/family that there are no additional SWCM needs at this time. SW provided the family with contact [phone]. Patient/Family aware and taking part in the discharge plan. This assessment has been reviewed with the multi-disciplinary team. Advance Directives (For Healthcare) Advance Directive: Patient does not have advance directive Discharge Plan Met with patient to initiate discussion regarding discharge planning. Introduced self and role of case management/social work and provided contact information. Anticipated Discharge Plan: Pending medical recs Anticipated Discharge Date: 04/25 Anticipated Transportation: Family Patient/Family aware and taking part in the discharge plan. Patient/family educated that once post-acute care needs have been identified, a provider list applicable to the identified post-acute care needs as well as the insurance provider will be provided, and patient/family have the freedom to choose their provider(s); financial interest(s) are disclosed as appropriate. ASIM ENRIQUEZ LSW [phone] * Geoff Jurado Torsten, RD - 04/19/2025 7:35 AM EDTAssociated Order(s): IP CONSULT TO NUTRITION SERVICES TXP - Initial [facility] Medical Nutrition Therapy Reason(s) for Completion: Physician/Nursing Referral - Liver TXP post-op admission Diet Order/Nutrition Support: Diet/Nutrition Orders Diet NPO Frequency: Effective Now Number of Occurrences: Until Specified Pertinent Information: Mindy Wade is a 35 y.o. 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 She has been ETOH free for several years. She presents today for living donor liver transplant. Admitted to SICU post op. Pt seen for initial nutrition evaluation. Known to me from pre txp eval. Doing well from nutrition standpoint at that time. In pain. Not much of an appetite right now. Will follow-up with diet education prior to d/c. Following daily with txp team. Glucose: 89-156 x 24 hours. I/O: +3.6L net volume. 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 Admit Weight: 156 lb (70.8 kg) Current Weight: 156 lb (70.8 kg) Malnutrition Status: at risk for malnutrition Context: chronic illness Pertinent Labs: Recent Labs 04/18/25 1352 04/18/25 1410 04/18/25 1700 04/18/25185804/18/252318 WBC 7.2 -- -- 8.7 7.8 HGB 10.2* < > 9.6* 12.3 12.9 HCT 29.6* < > 28.0* 35.8 37.1 PLT 80* -- -- 84* 69* < > = values in this interval not displayed. Recent Labs 04/18/25185804/18/25 2212 04/18/25 2319 NA 139 139 139 K 3.6 3.6 3.7 CL 108 110 109 CO2 20* 22 23 BUN 11 14 14 CREATININE 0.66 0.65 0.65 GLUCOSE 163* 152* 156* CALCIUM 8.1* 7.8* 7.8* MG 2.2 2.2 2.2 PHOS 3.7 3.5 3.5 Recent Labs 04/18/25 0603 04/18/25 1859 04/18/25 2212 04/18/25 2319 AST 37 195* -- 203* ALT 25 127* -- 139* BILITOT 1.5 5.1* -- 4.5* BILIDIRECT 0.53* 2.86* -- 2.41* ALKPHOS 118 53 -- 55 ALBUMIN 3.8 3.8 2.7* 2.7* 2.8* 2.8* 2.8* Recent Labs 04/18/25 1352 04/18/25 1405 04/18/25 1654 04/18/25 1859 04/18/252318 INR 1.9* < > 1.6* 1.8* 1.8* PROTIME 23.1* -- -- 21.5* 21.8* < > = values in this interval not displayed. No results for input(s): HGBA1C in the last 72 hours. Past 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: Diagnosis Date Abdominal hernia 02/21/2023 Alcoholic hepatitis (CMS-HCC) Anxiety Ascites Chronic diarrhea 08/21/2022 Cirrhosis ([facility]-HCC) Cystitis Depression Hepatitis C Past Surgical History: Procedure Laterality Date APPENDECTOMY CYST REMOVAL Right had a cystic lesion under right breast with hematoma and cyst per patient which was removed ESOPHAGOGASTRODUODENOSCOPY N/A 07/28/2024 Procedure: EGD; Surgeon: Mario Ramirez MD; Location: ENDOSCOPY; Service: Gastroenterology; Laterality: N/A; LIVER TRANSPLANTATION N/A 04/18/2025 Procedure: LIVING DONOR LIVER TRANSPLANT; Surgeon: Ludin Jose MD; Location: OR; Service: Transplant; Laterality: N/A; UPPER GASTROINTESTINAL ENDOSCOPY 09/21/2022 Scheduled Meds: acetaminophen 15 mg/kg Intravenous Q8H AMPicillin IVPB 1 g Intravenous Q6H aspirin 81 mg Oral Daily with breakfast [Held by provider] carvediloL 3.125 mg Oral Nightly (2099) chlorhexidine 15 mL Mouth/Throat BID famotidine (PF) 20 mg Intravenous 2 times per day [Held by provider] gabapentin 800 mg Oral TID heparin 5,000 Units Subcutaneous 3 times per day methylprednisolone (SOLU-medrol) IV 250 mg Intravenous Once Followed by [START ON 04/20/2025] methylPREDNISolone sod suc(PF) 125 mg Intravenous Once Followed by [START ON 04/21/2025] methylPREDNISolone sod suc(PF) 60 mg Intravenous Once Followed by [START ON 04/22/2025] methylPREDNISolone sod suc(PF) 50 mg Intravenous Once Followed by [START ON 04/23/2025] predniSONE 40 mg Oral Once Followed by [START ON 04/24/2025] predniSONE 30 mg Oral Once Followed by [START ON 04/25/2025] predniSONE 25 mg Oral Once Followed by [START ON 04/26/2025] predniSONE 20 mg Oral Daily 0900 mycophenolate (CELLCEPT) IVPB 500 mg Intravenous BID pantoprazole (PROTONIX) IV 40 mg Intravenous DAILY 0600 Pharmacy to Discontinue all previous insulin and antidiabetic medications MISCELLANEOUS Once Continuous Infusions: fentanyl (SUBLIMAZE) IV infusion Stopped (04/18/252205) insulin regular in 0.9 % sodium chloride 2 Units/hr (04/19/25599) norepinephrine Stopped (04/18/251908) propofol Stopped (04/18/252205) sodium chloride 0.9 % 75 mL/hr (04/19/25599) vasopressin Stopped (04/18/251909) PRN Meds:dextrose 10% in water OR dextrose 10% in water, fentanyl (SUBLIMAZE) IV infusion AND fentaNYL, glucose, HYDROmorphone OR HYDROmorphone Vital Signs: Temp: [98.1 ??F (36.7 ??C)-98.4 ??F (36.9 ??C)] 98.3 ??F (36.8 ??C) Heart Rate: [76-96] 88 Resp: [0-21] 6 BP: (103-121)/(62-83) 115/75 Arterial Line BP: (92-145)/(57-85) 92/75 FiO2: [40 %-100 %] 40 % Skin Integrity: Abdominal incision Daniel Scale Score: 16 Edema: GI: Abdomen Inspection: Soft, Nondistended Bowel Sounds (All Quadrants): Active Palpation/Percussion: Soft Passing Flatus: No Ventilator Settings: Vent Mode: Spont PS/PEEP FiO2: [40 %-100 %] 40 % S RR: [16] 16 S VT: [350 mL] 350 mL PEEP/CPAP: [0 cm H20-7 cm H20] 5 cm H20 Potential Nutrition Related Factor(s): Skin Integrity: Abdominal surgical incision Social needs that may impact access to food: none Food Allergies/Intolerances: none Cultural Requests: none Anthropometrics: Ht Readings from Last 1 Encounters: 04/18/25 5' 5 (1.651 m) Wt Readings from Last 1 Encounters: 04/18/25 156 lb (70.8 kg) Body mass index is 25.96 kg/m??. Usual Weight: ~150 lbs Desirable Weight: 150 lbs - based on BMI 25 kg/m^2 Weight History: Wt Readings from Last 10 Encounters: 04/18/25 156 lb (70.8 kg) 04/11/25 157 lb 12.8 oz (71.6 kg) 02/07/25 152 lb (68.9 kg) 02/07/25 152 lb 8 oz (69.2 kg) 02/07/25 152 lb 8 oz (69.2 kg) 01/10/25 152 lb (68.9 kg) 12/20/24 152 lb (68.9 kg) 08/18/24 149 lb (67.6 kg) 07/28/24 146 lb (66.2 kg) 05/12/24 156 lb (70.8 kg) Estimated Nutrition Needs: Based on DBW of 68.1 kg Kcals/day: 1723-3876 (25-30 kcals/kg) Protein g/day: 100-140 (1.5-2.0 g/kg) Carbohydrates g/day: 45-55% of total calories Fluid ml/day: 1 ml/kcal or per MD *Needs based on clinical status at this time and subject to change. Nutrition Diagnosis Problem: Increased kcal/protein needs Related To: Increased demand for nutrients As Evidenced By: Recent liver transplant, medically complex Nutrition Diagnosis Problem: Food- and nutrition-related knowledge deficit Related to: Exposure to new information As evidenced by: Recent liver transplant and subsequent need for medical nutrition therapy education Recommended Interventions: Monitor PO Intake/Tolerance and Education/Counseling: Food Safety Goals: Total energy intake improved as evidenced by PO intake at least 75% of meals/supplements/snacks within 1-3 days and Voices/demonstrates knowledge of Food Safety education/counseling Coordination of Nutrition Care: This information has been communicated to the transplant multidisciplinary team Follow up: per policy while inpatient. If patient is discharged, dietitian will be available for consultation on an as needed basis as identified by the multidisciplinary team. Recommendation(s) to Physician: Regular diet as medically able ONS w/ meals Jc Sarmiento RD, LD Clinical Dietitian - Solid Organ Transplant Contact via [employer] Chat * Judith Murcia MD - 04/18/2025 11:05 PM EDTAssociated Order(s): IP CONSULT TO SURGICAL CRITICAL CARE Surgical ICU Consult Note / Progress Note Patient: Mindy Wade Date/Time: 04/18/2025 11:05 PM HPI: Mindy Wade is a 35 y.o. 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 She has been ETOH free for several years. She presents today for living donor liver transplant. Admitted to SICU post op. OR Course (04/18/2025): - Procedure: living donor liver transplant - IVF: 4.5 L crystalloid - Blood Products: Cell Saver 2300 mL, 3u pRBC, 4u FFP, 2u platelets, 1u cryo, Albumin 1500 mL - Vasopressors: levo, vaso, epi - EBL: 7300 mL - UOP: 850 mL - Other: 250 mL NG output, bronchospasm in OR, treated - Last Hgb: 10.2 Home Medications: Albuterol Carvedilol 3.125 mg BID Lasix 60 mg BID Gabapentin 800 TID Spironolactone 150 BID MEDICAL HISTORY: Past Surgical History: Procedure Laterality Date APPENDECTOMY CYST REMOVAL Right had a cystic lesion under right breast with hematoma and cyst per patient which was removed ESOPHAGOGASTRODUODENOSCOPY N/A 07/28/2024 Procedure: EGD; Surgeon: Mario Ramirez MD; Location: ENDOSCOPY; Service: Gastroenterology; Laterality: N/A; LIVER TRANSPLANTATION N/A 04/18/2025 Procedure: LIVING DONOR LIVER TRANSPLANT; Surgeon: Ludin Jose MD; Location: OR; Service: Transplant; Laterality: N/A; UPPER GASTROINTESTINAL ENDOSCOPY 09/21/2022 REVIEW OF SYSTEMS: Review of systems conducted with patient and pertinent positives are noted in HPI. INTERVAL EVENTS 24 HOUR EVENTS: Admitted to SICU after LDLT CONSTITUTIONAL Exam: No acute distress, resting comfortably Temp (24hrs), Av.8 ??F (36.6 ??C), Min:96.9 ??F (36.1 ??C), Max:98.4 ??F (36.9 ??C) Temp: [96.9 ??F (36.1 ??C)-98.4 ??F (36.9 ??C)] 98.1 ??F (36.7 ??C) Heart Rate: [79-96] 79 Resp: [8-21] 12 BP: (99-116)/(62-72) 107/69 Arterial Line BP: (98-135)/(57-70) 135/65 FiO2: [40 %-100 %] 40 % Patient Vitals for the past 4 hrs: BP Temp Temp src Pulse Resp SpO2 04/18/25 2252 107/69 -- -- 79 12 100 % 04/18/25 2246 -- -- -- -- -- 98 % 04/18/25 2200 104/66 -- -- 81 10 98 % 04/18/25 2100 109/62 -- -- 80 9 99 % 04/18/252028 -- -- -- 91 19 100 % 04/18/251999 103/63 98.1 ??F (36.7 ??C) Axillary 86 8 99 % 04/18/25 1908 112/72 -- -- -- -- -- A/P: - No active issues HEENT Exam: Normocephalic, atraumatic, PERRL A/P: - NGT remains to low wall suction - No active issues RESPIRATORY Exam: Intubated on SIMV Vent Settings: Vent Mode: Spont PS/PEEP FiO2: [40 %-100 %] 40 % S RR: [16] 16 S VT: [350 mL] 350 mL Spont TV: [0 mL-854 mL] 854 mL Inspiratory Time Set: [0.9 sec] 0.9 sec PIP: [2 cm H2O-40 cm H2O] 15 cm H2O Plateau Pressure (cm H2O): [15 cm H2O] 15 cm H2O Delta Pressure Support (cm H2O): [10 cm H2O] 10 cm H2O PEEP/CPAP: [0 cm H20-7 cm H20] 5 cm H20 Patient Vitals for the past 12 hrs: Vent Mode Resp Rate (Set) Vt (Set, mL) Spont TV Inspiratory Time Set PIP Observed PEEP/CPAP Delta Pressure Support (cm H2O) 04/18/252251 Spont PS/PEEP -- -- 854 mL -- 15 cm H2O 5 cm H20 10 cm H2O 04/18/252245 Spont PEEP -- -- 648 mL -- 6.4 cm H2O 5 cm H20 -- 04/18/252028 VC-SIMV/PRVC 16 350 mL 0 mL 0.9 sec 15 cm H2O 5 cm H20 10 cm H2O 04/18/251826 VC-SIMV/PRVC 16 350 mL 386 mL 0.9 sec 15 cm H2O 5 cm H20 10 cm H2O Other O2 Device: Patient Vitals for the past 5 hrs: O2 Device FiO2 04/18/252251 -- 40 % 04/18/252245 -- 40 % 04/18/252199 -- 50 % 04/18/252099 -- 50 % 04/18/252028 -- 50 % 04/18/251999 ETT;Vent 50 % 04/18/251899 -- 50 % 04/18/251826 -- 50 % 04/18/251825 ETT 49 % Total RSBI: 11 (04/18/252245) Blood Gas: Lab 04/18/25224504/18/25 1859 PH ARTERIAL 7.38 7.40 PCO2 ARTERIAL 38 33* PO2 ARTERIAL 136* 158* HCO3 ARTERIAL 23 22 BASE EXCESS ARTERIAL -2.3* -3.6* % HBO2 96.6 95.1 O2 SATURATION ARTERIAL 100 100 - P:F Ratio: 340 IBW: [place] body weight: 57 kg (125 lb 10.6 oz) Adjusted ideal body weight: 62.5 kg (137 lb 12.8 oz) A/P: #Post-Operative Intubation Requirement - Bronchospasm in OR, treated. Remained intubated post-operatively - Sedation weaned, SBT - Extubate as able CARDIOVASCULAR Exam: Regular rate, regular rhythm Vitals: Temp: [96.9 ??F (36.1 ??C)-98.4 ??F (36.9 ??C)] 98.1 ??F (36.7 ??C) Heart Rate: [79-96] 79 Resp: [8-21] 12 BP: (99-116)/(62-72) 107/69 Arterial Line BP: (98-135)/(57-70) 135/65 FiO2: [40 %-100 %] 40 % Hemodynamics: No data found. Cardiac Labs: Lab 04/18/258 04/18/25 1859 04/18/25 1700 04/18/25 1600 04/18/25 1506 POC LACTATE -- -- 3.63* 2.56* 3.12* LACTATE 2.3* 3.8* -- -- -- Prior Cardiac Data: - Echo (02/01/25): Study Conclusions Left ventricle: The cavity size is normal. Wall thickness is normal. Systolic function is normal. The estimated ejection fraction is 55-60%. - EKG (04/18/25): Prolonged Qtc A/P: #Shock - Goal MAP >65 - Vasopressors: epi, levo, vaso in OR. D/C'd now - Continue to monitor on telemetry - Trend lactate #HTN Home Meds: Carvedilol 3.25 BID - Resume when able GASTROINTESTINAL Exam: Soft, non-distended, appropriately tender to palpation Drain Output: Output by Drain (mL) 04/16/25 0701 - 04/16/25 1900 04/16/25 190 - 04/17/25 0700 04/17/25 0701 - 04/17/25 1900 04/17/25 190 - 04/18/25 0700 04/18/25 0701 - 04/18/25 1900 04/18/25 190 - 04/18/25 2305 Drain sub hepatic #1 Abdomen Right;Superior 100 Drain hilar #2 Abdomen Right;Superior 75 GI Labs: Lab 04/18/25 2212 04/18/25 1859 04/18/25 0603 ALK PHOS -- 53 118 ALT -- 127* 25 AST -- 195* 37 BILIRUBIN TOTAL -- 5.1* 1.5 ALBUMIN -- 2.7* 3.8 ALBUMINKID 2.8* 2.7* 3.8 BILIRUBIN DIRECT -- 2.86* 0.53* TOTAL PROTEIN -- 4.0* 6.7 A/P: Hx of ETOH, Hep ESLD #S/p LDLT - holding home lasix and aldactone - Lateral drain (sub-hepatic) 100mL output since OR, medial drain (hilar) 75mL output since OR - q6 LFTs #Bowel Regimen - 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 Current Diet: Diet/Nutrition Orders Diet NPO Frequency: Effective Now Number of Occurrences: Until Specified Prealbumin: A/P: #Risk for Malnutrition - NPO per primary team FLUIDS / ELECTROLYTES Labs: Lab 04/18/25 2212 04/18/25 1859 04/18/25 0603 SODIUM 139 139 138 POTASSIUM 3.6 3.6 3.3* CHLORIDE 110 108 104 CO2 22 20* 26 BUN 14 11 12 CREATININE 0.65 0.66 0.77 GLUCOSE 152* 163* 89 CALCIUM 7.8* 8.1* 9.0 MAGNESIUM 2.2 2.2 2.2 PHOSPHORUS 3.5 3.7 3.8 EGFR >90 >90 >90 Admission Wt: Weight: 156 lb (70.8 kg) Current Wt: Weight: 156 lb (70.8 kg) Intake/Output: Date 04/17/252299 - 04/18/25 06(Not Admitted) 04/18/25 07 - 04/19/25 0659 Shift 8810-0846 24 Hour Total 4728-1155 5298-5521 3080-2178 24 Hour Total INTAKE P.O. 0 0 P.O. 0 0 I.V.(mL/kg) 3000(42.4) 1798.7(25.4) 4798.7(67.8) Volume (mL) Insulin 5.8 5.8 Volume (mL) Propofol 23.9 23.9 Volume (mL) Fentanyl 54.1 54.1 Volume (mL) Vasopressin 0 0 Volume (mL) Norepinephrine 0 0 Volume (mL) (electrolyte-R (pH 7.4) (NORMOSOL-R pH 7.4) IV solution) 3000 1500 4500 Volume (mL) (sodium chloride 0.9 % IV infusion) 215 215 Blood 2750 2450 5200 Cell Saver - Volume 2300 2300 Volume (Transfuse RBC Transfusion Rate: Per dept routine) 350 350 Volume (Transfuse RBC Transfusion Rate: Per dept routine) 350 350 Volume (Transfuse Fresh Frozen Plasma Transfusion Rate: Per dept routine) 300 300 Volume (Transfuse RBC Transfusion Rate: Per dept routine) 350 350 Volume (Transfuse Fresh Frozen Plasma Transfusion Rate: Per dept routine) 300 300 Volume (Transfuse Fresh Frozen Plasma Transfusion Rate: Per dept routine) 300 300 Volume (Transfuse Platelets) 250 250 Volume (Transfuse Platelets) 250 250 Volume (Transfuse Fresh Frozen Plasma Transfusion Rate: Per dept routine) 300 300 Volume (Transfuse Cryoprecipitate) 75 75 Volume (Transfuse Cryoprecipitate) 75 75 IV Piggyback 2098.3 319.2 2417.5 Volume (mL) (methylPREDNISolone sodium succinate (SOLU-medrol) 500 mg in sodium chloride 0.9 % 100 mL IVPB) 100 100 Volume (mL) (vancomycin (VANCOCIN) 1,500 mg in sodium chloride 0.9 % 250 mL [id number]) 298.3 298.3 Volume (mL) (ciprofloxacin (CIPRO) 400 mg in dextrose 5% 200 mL IVPB) 200 200 400 Volume (mL) (albumin human bottle 5%) 1500 1500 Volume (mL) (AMPicillin 1 g in sodium chloride 0.9% 100 mL IVPB ([id number])) 100 100 Volume (mL) (mycophenolate (CELLCEPT) 500 mg in dextrose 5% in water (D5W) 50 mL IVPB) 19.2 19.2 Shift Total(mL/kg) 7848.3(110.9) 4567.9(64.6) 00545.3(175.5) OUTPUT Urine(mL/kg/hr) 500(0.9) 550(1) 1050 Urine 500 350 850 Output (mL) (IUC (Ybarra) Non-latex;Straight-tip 16 Fr.) 200 200 Drains 175 175 Output (mL) (Drain sub hepatic #1 Abdomen Right;Superior) 100 100 Output (mL) (Drain hilar #2 Abdomen Right;Superior) 75 75 Other 350 350 Other 350 350 Stool Stool Occurrence 0 x 0 x Blood 7600 7600 Est Blood Loss 7600 7600 Shift Total(mL/kg) 500(7.1) 8675(122.6) 9175(129.7) Weight (kg) 70.8 70.8 70.8 70.8 70.8 70.8 Intake/Output Summary (Last 24 hours) at 04/18/20252304 Last data filed at 04/18/20252199 Gross per 24 hour Intake 47572.27 ml Output 9175 ml Net 3241.27 ml UOP: 1,050 mL/24 hrs IVF: fentanyl (SUBLIMAZE) IV infusion, Last Rate: 100 mcg/hr (04/18/252199) insulin regular in 0.9 % sodium chloride, Last Rate: 2 Units/hr (04/18/252199) norepinephrine, Last Rate: Stopped (04/18/251908) propofol, Last Rate: 20 mcg/kg/min (04/18/252199) sodium chloride 0.9 %, Last Rate: 75 mL/hr (04/18/252199) vasopressin, Last Rate: Stopped (04/18/251909) A/P: #Fluid Balance - Goal UOP 0.5 mL/kg/hr - Strict I/Os - 75mL UOP since OR #Electrolytes - Hand replete electrolytes - q6 renal, Mg RENAL Labs: Lab 04/18/25 2212 04/18/25185804/18/25 0603 CO2 22 20* 26 BUN 14 11 12 CREATININE 0.65 0.66 0.77 EGFR >90 >90 >90 Lab 04/18/25 2246 04/18/251858 PH ARTERIAL 7.38 7.40 PCO2 ARTERIAL 38 33* PO2 ARTERIAL 136* 158* HCO3 ARTERIAL 23 22 BASE EXCESS ARTERIAL -2.3* -3.6* % HBO2 96.6 95.1 O2 SATURATION ARTERIAL 100 100 Urine Lytes: No results for input(s): NAUR in the last 72 hours. Invalid input(s): CRUR 24 hour urine output 1,050 mL A/P: - Baseline Cr: 0.6 - Daily Renal/Mg SKIN / MUSCULOSKELETAL Exam: Normal ROM, no rashes A/P: - No active issues HEMATOLOGIC Labs: Lab 04/18/25 1859 04/18/25 1700 04/18/25 1600 04/18/25 1506 04/18/25 1410 04/18/25 1352 04/18/25 0917 04/18/25 0603 WBC 8.7 -- -- -- -- 7.2 -- 3.7* HEMATOCRIT 35.8 -- -- -- -- 29.6* -- 34.5* HCTPOC -- 28.0* 28.0* 27.0* 26.0* -- < > -- HEMOGLOBIN 12.3 -- -- -- -- 10.2* -- 11.7 HGBPOC -- 9.6* 9.6* 9.2* 9.0* -- < > -- PLATELETS 84* -- -- -- -- 80* -- 100* < > = values in this interval not displayed. Lab 04/18/25 18504/18/25 1352 04/18/25 0603 INR 1.8* 1.9* 1.1 Lab 04/18/25 18504/18/25 1352 04/18/25 0603 FIBRINOGEN LEVEL 249 130* 283 A/P: #Acute Blood Loss Anemia - q6 CBC - Transfuse pRBC for Hgb <7 #Coagulopathy - Trend INR, TEG PRN active bleeding - Transfuse FFP for R Time >55 or INR >1.7 and bleeding - Transfuse cryoprecipitate for Alpha Angle <55 or low fibrinogen - Transfuse platelets for MA <55 ENDOCRINE Glucose Range: Lab 04/18/25 2212 04/18/25 2209 04/18/25 2111 04/18/25 2005 04/18/25 1859 04/18/25 1700 04/18/25 1600 04/18/25 1506 04/18/25 1410 04/18/25 1339 04/18/25 1256 04/18/25 1211 04/18/25 1116 04/18/25 0917 04/18/25 0603 POC GLU MONITORING DEVICE -- 145* 141* 153* 155* -- -- -- -- -- -- -- -- -- -- POCGLUART -- -- -- -- -- 136* 133* 144* 158* 124* 102* 126* 116* < > -- GLUCOSE 152* -- -- -- 163* -- -- -- -- -- -- -- -- -- 89 < > = values in this interval not displayed. Hgb A1c: Lab Results Component Value Date HGBA1C 4.4 04/11/2025 Insulin Regimen: Insulin Orders Dose Frequency Start End insulin (HumuLIN R) infusion - TITRATABLE NURSING PROTOCOL (HYPERGLYCEMIA) 0-28 Units/hr Dtbdvljddp35/27/2025 04/19/2025 Admin Instructions: FOR O.R. USE only. Titrate in O.R. for blood glucose management HIGH ALERT MEDICATION Route: Intravenous A/P: #Hyperglycemia - no hx of DM - Insulin gtt at 2u/hr INFECTIOUS DISEASE Tmax: Temp (24hrs), Av.8 ??F (36.6 ??C), Min:96.9 ??F (36.1 ??C), Max:98.4 ??F (36.9 ??C) WBC Trend: Lab 04/18/25 1859 04/18/25 1352 04/18/25 0603 WBC 8.7 7.2 3.7* Current Abx: Current Anti-Infectives Dose Frequency Start End AMPicillin 1 g in sodium chloride 0.9% 100 mL IVPB (Qlrs2Uuv) 1 g Every 6 hours 04/18/2025 04/20/2025 Admin Instructions: Dosage may need to be adjusted for renal dysfunction. Full dose is 1g IV q6h Use [id number] Adapter - Mix Thoroughly Before Administration Notes to Pharmacy: On drive thru order taker estimated creatinine clearance is 100.6 mL/min (based on SCr of 0.77 mg/dL). Route: Intravenous Linked Group 1: Placed in And Linked Group cefTRIAXone (ROCEPHIN) 2 g in sodium chloride 0.9% 20 mL IV Push 2 g Once 04/19/2025 04/20/2025 Admin Instructions: Give 24 hours after pre-op dose. ADMINISTER IV PUSH. Infuse over 5 minutes. Draw up 20 mL Sodium Chloride 0.9% into empty syringe. Inject 20 mL into vial of Ceftriaxone. Shake well. Withdraw volume into syringe and administer immediately. Route: Intravenous Linked Group 1: Placed in And Linked Group ciprofloxacin (CIPRO) 400 mg in dextrose 5% 200 mL IVPB (Completed) 400 mg Once 04/18/2025 04/18/2025 Admin Instructions: Begin infusion 120 minutes prior to incision PROTECT FROM LIGHT. Route: Intravenous Linked Group 2: Placed in And Linked Group vancomycin (VANCOCIN) 1,500 mg in sodium chloride 0.9 % 250 mL Edhe6Cth (Completed) 20 mg/kg ?? 71.6 kg Once 04/18/2025 04/18/2025 Admin Instructions: Begin infusion 120 minutes prior to incision Use [id number] Adapter - Mix Thoroughly Before Administration Route: Intravenous Linked Group 2: Placed in And Linked Group A/P: #Antibiotics - Perioperative Abx: vanc, ampicillin, ceftriaxone, cipro #Immunosuppression Steroid taper Per TXP team NEUROLOGIC Exam: No focal signs, moving all four extremities GCS: [place] Coma Scale Score: 11 (Eye Openin, Best Verbal Response: 1 (ett), Best Motor Response: 6) No data found. A/P: #Sedation/Analgesia - Sedation weaned - Tylenol scheduled, Dilaudid prn PSYCHIATRIC Exam: Not agitated CAM: Overall CAM-ICU : (giuliano) RASS: Gomez Agitation Sedation Scale: -2 A/P: NIRAV ICU CHECKLIST Diet: Diet/Nutrition Orders Diet NPO Frequency: Effective Now Number of Occurrences: Until Specified Bowel Reg: Held GI PPx: Pepcid DVT PPx: Current Anticoagulation (Only) aspirin chewable tablet 81 mg (Starting on 04/19/2025) heparin (porcine) injection 5,000 Units Drips: fentanyl (SUBLIMAZE) IV infusion 100 mcg/hr (04/18/252199) insulin regular in 0.9 % sodium chloride 2 Units/hr (04/18/252199) norepinephrine Stopped (04/18/251908) propofol 20 mcg/kg/min (04/18/252199) sodium chloride 0.9 % 75 mL/hr (04/18/252199) vasopressin Stopped (04/18/251909) LDA: Patient Lines/Drains/Airways Status Active Epidural Line / PICC Line / PIV Line / ART Line / Line / CVC Line Name Placement date Placement time Site Days Peripheral IV 04/18/25 Left;Proximal Antecubital 04/18/25 0630 Antecubital less than 1 Peripheral IV 04/18/25 Anterior;Right Forearm 04/18/25 1832 Forearm less than 1 Peripheral IV 04/18/25 Left;Posterior Hand 04/18/25 1832 Hand less than 1 Arterial Line 04/18/25 Left Radial 04/18/25 1021 Radial less than 1 Introducer 04/18/25 04/18/25 0830 -- less than 1 PT/OT: Pending - PT Recs: - OT Recs: - GARNISHMENT SPECIALIST Recs: Dispo: Remain in SICU Code Status: Full Code Signed: JUDITH MURCIA MD 04/18/2025, 11:05 PM Cosigned by Manuela Lang MD at 04/18/2025 11:55 PM EDT Associated attestation - Manuela Lang MD - 04/18/2025 11:55 PM EDT ICU ATTENDING NOTE: This patient was seen by the Surgical ICU team and the Transplant team; I have personally seen thispatient, examined this patient, and my assessment and plan for coordinated critical care managementreveals: I note the following interval events: 35 y.o. 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 She has been ETOH free for several years. She presents today for living donor liver transplant. Admitted to SICU post op. HEENT: No Acute Issues RESPIRATORY: Atelectasis/pulmonary collapse - vent support - bronchospasm at end of case- treated - paralytic reversed in SICU - wean to extubate Vent Mode: VC-SIMV/PRVC FiO2: [49 %-100 %] 50 % S RR: [16] 16 S VT: [350 mL] 350 mL PEEP/CPAP: [0 cm H20-7 cm H20] 5 cm H20 Lab Results Component Value Date PHART 7.40 04/18/2025 PCO2 33 (L) 04/18/2025 PO2ART 158 (H) 04/18/2025 IVH3LGG 22 04/18/2025 BEART -3.6 (L) 04/18/2025 YJQ3EED 95.1 04/18/2025 Y4XONQTG 100 04/18/2025 P:F ratio = 316 CARDIOVASCULAR: Hypertension, unspecified Shock, Unspecified - wean pressors as able, MAP>65 mmHg - goal directed resuscitation - hold home carvedilol NUTRITION: Signs of malnutrition by BMI or weight loss on admission? No No acute issues Diet: NPO NGT GASTROINTESTINAL: Cirrhosis, alcoholic - s/p living donor liver transplant 04/18 - trend labs and output - continue NGT, NPO - IVF - H2B - PRN zofran FLUIDS / ELECTROLYTES: No acute issues - trend labs - replace electrolytes as indicated RENAL: No acute issues - trend labs and UOP SKIN/MUSCULOSKELETAL: No acute issues HEMATOLOGIC: Coagulopathy, unspecified Thrombocytopenia, unspecified - trend labs - transfuse as indicated per transplant ENDOCRINE: No acute issues - trend glucose INFECTIOUS DISEASE: No acute issues - mary op abx NEUROLOGIC: No acute issues PSYCHIATRIC, PAIN, SEDATION: Pain Management - fent/prop - wean to extubate, MMPC OTHER DISEASE SPECIFIC / IMMUNOSUPPRESSION NEEDS: Transplant immunosuppression - methyl pred, pred ACTIVE LINES: Patient Lines/Drains/Airways Status Active Epidural Line / PICC Line / PIV Line / ART Line / Line / CVC Line Name Placement date Placement time Site Days Peripheral IV 04/18/25 Left;Proximal Antecubital 04/18/25 0630 Antecubital less than 1 Peripheral IV 04/18/25 Anterior;Right Forearm 04/18/25 1832 Forearm less than 1 Peripheral IV 04/18/25 Left;Posterior Hand 04/18/25 1832 Hand less than 1 Arterial Line 04/18/25 Left Radial 04/18/25 1021 Radial less than 1 Introducer 04/18/25 04/18/25 0830 -- less than 1 Central Line? Yes - Reason: Hemodynamic monitoring Arterial line? Yes ACTIVE DRAINS: Urinary Catheter? Ybarra - Reason: Adequate I/O DVT Prophylaxis: Subcutaneous Heparin GI Prophylaxis: H2 Nataly DISPOSITION: SICU I saw and examined the patient and discussed the case with the resident and agree with the findingsand plan as documented in the resident's note. Total time delivering critical care for this patient including direction of initial assessment, evaluation, development of a plan, discussion with consultants, and family but excluding time spent performing any associated procedures was 31 minutes on 04/18/2025. Manuela Lang MD Section of General Surgery Divisions of Trauma, Acute Care Surgery, and Surgical Critical Care [facility] Academic Office [phone] For Transfers, call [phone] documented in this encounter Nursing Notes * Marilee Ramsey RN - 04/29/2025 9:35 PM EST Reached out to resident to change pain medication orders. Orders were modified by MD Bartolo to reflect the day team's want to use IV dilaudid as breakthrough only, as communicated in report, and theoxycodone to reflect the patient's communicated NRS score. KONSTANTIN Hunt * Meka Marinelli RN - 04/27/2025 10:39 PM EST Patient transferred to [facility] on 8CCP per order. Patient transported with CMU cardiac monitoring, TPN, and antibiotic infusing. Report given to receiving RN Alecia. Dose of IV Cellcept for 2300 given torshay PRYOR. Patient transferred with all belongings. * Yaima Cohen RN - 04/21/2025 10:01 AM EDT Mindy Wade has orders to be transferred to the floor. Pt has been assigned a bed on 8ccp room number 8032. SICU resident notified of transfer. Called report to irene PRYOR. All belongings, chart and meds gathered and transferred with pt. CMU tele ordered. Pt transferred via bed. All questions answered. Notified pt's contact center professional of transfer. Yaima Cohen RN * Estela Mckeon RN - 04/19/2025 9:25 PM EDT During shift assessment at 20:00 this RN found an anesthesia black med box, with lock intact, in the patient room. This RN paged the AOD and notified them on the med box still being in the patient room. AOD notified this RN that there were no available residents to come collect the med box and asked for it to delivered it to the OR. This RN delivered the anesthesia black med box, with lock intact, to [place] the OR [employer] at 21:30. documented in this encounter Miscellaneous Notes * Home Health Care Note - Giovanny Louis MD - 05/03/2025 2:05 PM EST Images from the original note were not included. REFERRAL FOR HOME HEALTH SERVICES FORM Patient name: Mindy Wade Patient : 1990 Age: 35 y.o. Gender: female SSN: [id number] [address]: [address] [place], [place] [address] Phone number: [phone] Patient emergency contact: Extended Emergency Contact Information Primary Emergency Contact: KHLOE WADE Mobile Relation: Spouse Date of admission: 04/18/2025 Date of discharge: 05/03/2025 Attending provider: Jose Daniel MD Primary care physician: GEOFF GRAVES DO Code status: Full Code Allergies: Allergies[1] Insurance Information Insurance Information AETNA MANAGED MEDICARE/AETNA MEDICARE Phone: -- Subscriber: Mindy Wade Subscriber#: [id number] Group#: [id number] Precert#: [id number] Authorization#: [id number] Effective Date: -- Diagnoses Present on Admission Primary Diagnosis: <principal problem not specified> Discharge Diagnosis : There are no hospital problems to display for this patient. Prognosis: good Rehabilitation potential: good Diet Diet/Nutrition Orders Diet Regular(7) Frequency: Effective Now Number of Occurrences: Until Specified Order Questions: Suicide/Behavior Risk Modification? No Dietary nutrition supplements Frequency: TID Number of Occurrences: Until Specified Order Questions: Select Supplement: Boost Plus-high calorie high protein supplement Regular Diet Services Required Custodial: vital signs, med management, lab draws Physical Therapy: Plan Treatment/Interventions: Endurance training, Patient/family training, Equipment eval/education, Gait training, Therapeutic Activity, Therapeutic Exercise, Stair Training PT Frequency during hospitalization: minimum 3x/week Recommendation Recommendation: Home PT Equipment Recommended: Rolling walker Occupational Therapy: Plan Treatment Interventions: Activity Tolerance training, ADL retraining, Continued evaluation, Patient/Family training, Functional transfer training, Compensatory technique education, Therapeutic Activity OT Frequency during hospitalization: minimum 3x/week Recommendation Recommendation: Home OT Equipment Recommendations: Tub Transfer Bench Tub Transfer Bench Justification: Patient is at risk to fall in shower environment, Patient has decreased activity tolerance requiring use of seat during bathing tasks Weight bearing status: full Needs 24 hour supervision due to cognitive impairment: No Discharge Medications Medications: Medication List TAKE these medications, which are NEW Quantity/Refills acetaminophen 325 MG tablet Commonly known as: TYLENOL Take 3 tablets (975 mg total) by mouth every 8 hours. Quantity: 200 tablet Refills: 0 aspirin 81 MG chewable tablet Chew 1 tablet (81 mg total) by mouth daily. Quantity: 30 tablet Refills: 11 calcium-vitamin D 500 mg-5 mcg (200 unit) per tablet Commonly known as: calcium-vitamin D Take 1 tablet by mouth 2 times a day with meals. Quantity: 60 tablet Refills: 2 fluconazole 200 MG tablet Commonly known as: DIFLUCAN Take 1 tablet (200 mg total) by mouth daily for 30 days. Quantity: 30 tablet Refills: 0 lidocaine 5 % Commonly known as: LIDODERM Place 2 patches onto the skin daily. Apply patch for 12 hours and then remove patch and leave off for 12 hours. Quantity: 30 patch Refills: 0 melatonin 3 mg Tab Take 1 tablet (3 mg total) by mouth at bedtime. Quantity: 30 tablet Refills: 0 methocarbamoL 500 MG tablet Commonly known as: ROBAXIN Take 2 tablets (1,000 mg total) by mouth 3 times a day. Quantity: 180 tablet Refills: 0 mycophenolate 250 mg capsule Commonly known as: CELLCEPT Take 2 capsules (500 mg total) by mouth 2 times a day. Quantity: 120 capsule Refills: 5 naloxone 4 mg/actuation Oolitic Commonly known as: NARCAN Apply 1 spray in one nostril if needed. Call 911. May repeat dose in other nostril if no response in 3 minutes. Quantity: 2 each Refills: 1 * oxyCODONE 5 MG immediate release tablet Commonly known as: ROXICODONE Take 2 tablets (10 mg total) by mouth every 6 hours as needed for Pain for up to 7 days. Quantity: 56 tablet Refills: 0 * oxyCODONE 5 MG immediate release tablet Commonly known as: ROXICODONE Take 2 tablets (10 mg total) by mouth every 6 hours as needed for Pain for up to 7 days. Quantity: 56 tablet Refills: 0 pantoprazole 40 MG tablet Commonly known as: PROTONIX Take 1 tablet (40 mg total) by mouth daily. Quantity: 60 tablet Refills: 0 polyethylene glycol 17 gram/dose powder Commonly known as: GLYCOLAX Mix 1 capful (17 g) in 8 oz of liquid and drink by mouth daily as needed (Constipation). Quantity: 238 g Refills: 0 predniSONE 5 MG tablet Commonly known as: DELTASONE Take 4 tablets (20 mg total) by mouth daily. Quantity: 120 tablet Refills: 2 pregabalin 100 MG capsule Commonly known as: LYRICA Take 1 capsule (100 mg total) by mouth 2 times a day for 30 days. Quantity: 60 capsule Refills: 0 senna-docusate 8.6-50 mg per tablet Commonly known as: sennosides-docusate sodium Take 1 tablet by mouth at bedtime as needed for Constipation. Quantity: 30 tablet Refills: 0 sulfamethoxazole-trimethoprim 400-80 mg per tablet Commonly known as: BACTRIM Take 1 tablet by mouth daily. Quantity: 30 tablet Refills: 2 tacrolimus 1 MG capsule Commonly known as: PROGRAF Take 3 capsules (3 mg total) by mouth every morning AND 2 capsules (2 mg total) at bedtime. Quantity: 600 capsule Refills: 5 traZODone 50 MG tablet Commonly known as: DESYREL Take 1 tablet (50 mg total) by mouth at bedtime for 30 days. Quantity: 30 tablet Refills: 0 ursodioL 300 mg capsule Commonly known as: ACTIGALL Take 1 capsule (300 mg total) by mouth 2 times a day. Quantity: 60 capsule Refills: 0 valGANciclovir 450 mg tablet Commonly known as: VALCYTE Take 1 tablet (450 mg total) by mouth daily. Quantity: 30 tablet Refills: 2 * This list has 2 medication(s) that are the same as other medications prescribed for you. Read thedirections carefully, and ask your doctor or other care provider to review them with you. TAKE these medications, which you were ALREADY TAKING Quantity/Refills ondansetron 8 MG disintegrating tablet Commonly known as: ZOFRAN-ODT Take 1 tablet (8 mg total) by mouth every 8 hours as needed for Nausea. Quantity: 20 tablet Refills: 0 STOP taking these medications carvediloL 3.125 MG tablet Commonly known as: COREG furosemide 20 MG tablet Commonly known as: LASIX gabapentin 800 MG tablet Commonly known as: NEURONTIN ondansetron 4 MG tablet Commonly known as: ZOFRAN spironolactone 50 MG tablet Commonly known as: ALDACTONE Where to Get Your Medications These medications were sent to [facility] [address] [place] [address] [facility] [address] Hours: Friday - Friday: 8:00AM - 6:00PM acetaminophen 325 MG tablet aspirin 81 MG chewable tablet calcium-vitamin D 500 mg-5 mcg (200 unit) per tablet fluconazole 200 MG tablet lidocaine 5 % melatonin 3 mg Tab methocarbamoL 500 MG tablet mycophenolate 250 mg capsule naloxone 4 mg/actuation Oolitic oxyCODONE 5 MG immediate release tablet oxyCODONE 5 MG immediate release tablet pantoprazole 40 MG tablet polyethylene glycol 17 gram/dose powder predniSONE 5 MG tablet pregabalin 100 MG capsule senna-docusate 8.6-50 mg per tablet sulfamethoxazole-trimethoprim 400-80 mg per tablet tacrolimus 1 MG capsule traZODone 50 MG tablet ursodioL 300 mg capsule valGANciclovir 450 mg tablet Discharge Specific Orders Discharge specific orders: None required LAB DRAWS: Please collect CBC w/diff, renal function panel, hepatic function panel, and tacrolimus level (prior to am tacro dose) every /. Fax results to liver transplant clinic at [phone]. NURSE VISIT: Please check vitals and assess/monitor surgical incision every Fri/. Isolation Patient Isolation Status None to display Vitals Patient Vitals for the past 4 hrs: BP Temp Temp src Pulse Resp SpO2 05/03/25 1315 113/76 98.6 ??F (37 ??C) Axillary 81 18 100 % 05/03/25 1215 105/58 98.9 ??F (37.2 ??C) Oral 68 17 100 % 05/03/25 1100 110/71 98.9 ??F (37.2 ??C) Axillary 92 18 100 % 05/03/25 1045 109/67 99.3 ??F (37.4 ??C) Oral 86 18 100 % Equipment/Supplies No current labs Ordering Physician: NPI [LUDIN JOSE MD] Physician Certification Further, I certify that my clinical findings support that this patient is homebound (i.e. absences from home require considerable and taxing effort and are for medical reasons or catholic services or infrequently or short duration when for other reasons) due to deconditioning it would be a taxing effort to receive outpatient services. My signature below is to certify that this patient is under my care and that I, or nurse practitioner, or a physician programs assistant working with me, had a [id number] encounter with this is patient on: 05/03/2025 Follow-up Appointments and Post Hospital Discharge Physician Name Future Appointments Date Time Provider Department Center 05/10/2025 8:20 AM [facility] [place] [address] Discharging Physician Signature and Credentials Discharging Physician: Electronically signed by GIOVANNY LOUIS MD 05/03/2025, 2:05 PM Physician to follow up Information PCP: GEOFF GRAVES DO PCP address: [address] [place] [address] / [place] [address] PCP phone number: [phone] PCP fax number: [phone] Follow-up: [facility] and their phone / fax is: [phone] / [phone] [employer] Cred[employer] Provider/Company Name and Contact Number: [employer] Name and Telephone Number: [1] No Known Drug Allergies or Adverse Reactions * Plan of Care - Julianne Costello RN - 05/03/2025 11:12 AM EST Problem: High Fall Risk Precautions Goal: High Fall Risk Precautions Outcome: Progressing Problem: Knowledge Deficit Goal: Patient/family/caregiver demonstrates understanding of disease process, treatment plan, medications, and discharge instructions Description: Complete learning assessment and assess knowledge base. Outcome: Progressing Problem: Potential for Compromised Skin Integrity Goal: Skin integrity is maintained or improved Description: Assess and monitor skin integrity. Identify patients at risk for skin breakdown on admission and per policy. Collaborate with interdisciplinary team and initiate plans and interventions as needed. Outcome: Progressing Problem: Acute Pain Description: Patient's pain progressing toward patient's stated pain goal Goal: Patient will manage pain with the appropriate technique/intervention Description: Assess and monitor patient's pain using appropriate pain scale. Collaborate with interdisciplinary team and initiate plan and interventions as ordered. Re-assess patient's pain level 30-60 minutes after pain management intervention. Outcome: Progressing * Plan of Care - Tisha Rhoades RN - 05/03/2025 1:12 AM EST Problem: Knowledge Deficit Goal: Patient/family/caregiver demonstrates understanding of disease process, treatment plan, medications, and discharge instructions Description: Complete learning assessment and assess knowledge base. Outcome: Progressing Problem: Potential for Compromised Skin Integrity Goal: Skin integrity is maintained or improved Description: Assess and monitor skin integrity. Identify patients at risk for skin breakdown on admission and per policy. Collaborate with interdisciplinary team and initiate plans and interventions as needed. Outcome: Progressing Goal: Nutritional status is improving Description: Monitor and assess patient for malnutrition (ex- brittle hair, bruises, dry skin, paleskin and conjunctiva, muscle wasting, smooth red tongue, and disorientation). Collaborate with interdisciplinary team and initiate plan and interventions as ordered. Monitor patient's weight and dietary intake as ordered or per policy. Utilize nutrition screening tool and intervene per policy. Determine patient's food preferences and provide high-protein, high- caloric foods as appropriate. Outcome: Progressing Problem: Acute Pain Description: Patient's pain progressing toward patient's stated pain goal Goal: Patient displays improved well-being such as baseline levels for pulse, BP, respirations and relaxed muscle tone or body posture Outcome: Progressing Goal: Patient will manage pain with the appropriate technique/intervention Description: Assess and monitor patient's pain using appropriate pain scale. Collaborate with interdisciplinary team and initiate plan and interventions as ordered. Re-assess patient's pain level 30-60 minutes after pain management intervention. Outcome: Progressing * Care Coordination - Asya Curry - 05/02/2025 1:33 PM EST [facility] Case Management/Social Work Department Progress Note Patient Information Patient Name: Mindy Wade Hospital day: 14 Inpatient/Observation: Inpatient Level of Care: Transplant Admit date: 04/18/2025 Admission diagnosis: Liver transplant recipient (CMS-HCC) [Z94.4] S/P liver transplant (CMS-HCC) [Z94.4] End stage liver disease (CMS-HCC) [K72.10] PMH: has a past medical history of Abdominal hernia (02/21/2023), Alcoholic hepatitis ([facility]-HCC), Anxiety, Ascites, Chronic diarrhea (08/21/2022), Cirrhosis ([facility]-HCC), Cystitis, Depression, and Hepatitis C. PCP: GEOFF GRAVES DO Home Pharmacy: [facility] [address] [place] [id number] [id number] [place] [place] [facility] [address] [address] [address] [facility] [address] [address] [address] [facility] [id number] [facility] [address] [facility], [place] [address] [facility] [address] [address] Medical Insurance Coverage: Payor: AET[employer] MANAGED MEDICARE / Plan: AETNA MEDICARE / Product Type: *No Product type* / Other Pertinent Information SW received update from medical team, completed chart review. Per team, pt is not medically ready for discharge. Patient accepted with [facility] ([phone]) for PT/OT, SN, and 2x weekly labs. Patient will need RW at discharge, Philip unable to cover due to insurance. Team made aware. Discharge Plan Anticipated discharge plan: Home with [facility] Anticipated discharge date: 05/03 CM/SW will continue to follow and remain available for discharge planning needs. ASIM Jackson, SPECIFICATIONS WRITER Event Specialist Product Demonstrator/Alumni Relations Manager (Deniz) Can be reached by [place] [phone] or [employer] secure chat * Plan of Care - Jeovanny Alcala MD - 05/02/2025 10:15 AM EST Interventional Radiology Brief Plan of Care Note IR was consulted on this patient for possible transplant liver biopsy versus splenic artery embolization. Briefly, this is a 35 yo female w/ PMHx ESLD 2/2 EtOH and HCV c/b ascites, now s/p LDLT on 04/18/25. Postoperative course c/b upper GIB and ABLA requiring MTP, taken back to OR 04/23 for JJ anastomosis revision. LFTs rising 04/30-05/01, prompting IR consultation for possible liver biopsy, versusevaluation for splenic artery embolization for transplant surgery concern for diversion of portal flow. Discussed with transplant surgery resident Giovanny Louis MD. LFTs have stabilized or are slightlydecreased this morning, transplant team would like to defer any IR intervention at this time. IR will sign off at this time and may be re-consulted if intervention is needed. Please call with any questions. Jeovanny Alcala MD PGY-4 Interventional Radiology * Plan of Care - Makenzie Canseco RN - 05/02/2025 10:14 AM EST Problem: Knowledge Deficit Goal: Patient/family/caregiver demonstrates understanding of disease process, treatment plan, medications, and discharge instructions Description: Complete learning assessment and assess knowledge base. Outcome: Progressing Problem: Potential for Compromised Skin Integrity Goal: Skin integrity is maintained or improved Description: Assess and monitor skin integrity. Identify patients at risk for skin breakdown on admission and per policy. Collaborate with interdisciplinary team and initiate plans and interventions as needed. Outcome: Progressing Problem: Potential for Compromised Skin Integrity Goal: Nutritional status is improving Description: Monitor and assess patient for malnutrition (ex- brittle hair, bruises, dry skin, paleskin and conjunctiva, muscle wasting, smooth red tongue, and disorientation). Collaborate with interdisciplinary team and initiate plan and interventions as ordered. Monitor patient's weight and dietary intake as ordered or per policy. Utilize nutrition screening tool and intervene per policy. Determine patient's food preferences and provide high-protein, high- caloric foods as appropriate. Outcome: Progressing * Plan of Care - Tisha Rhoades RN - 05/01/2025 11:08 PM EST Problem: Knowledge Deficit Goal: Patient/family/caregiver demonstrates understanding of disease process, treatment plan, medications, and discharge instructions Description: Complete learning assessment and assess knowledge base. Outcome: Progressing Problem: Potential for Compromised Skin Integrity Goal: Skin integrity is maintained or improved Description: Assess and monitor skin integrity. Identify patients at risk for skin breakdown on admission and per policy. Collaborate with interdisciplinary team and initiate plans and interventions as needed. Outcome: Progressing Goal: Nutritional status is improving Description: Monitor and assess patient for malnutrition (ex- brittle hair, bruises, dry skin, paleskin and conjunctiva, muscle wasting, smooth red tongue, and disorientation). Collaborate with interdisciplinary team and initiate plan and interventions as ordered. Monitor patient's weight and dietary intake as ordered or per policy. Utilize nutrition screening tool and intervene per policy. Determine patient's food preferences and provide high-protein, high- caloric foods as appropriate. Outcome: Progressing Problem: Acute Pain Description: Patient's pain progressing toward patient's stated pain goal Goal: Patient displays improved well-being such as baseline levels for pulse, BP, respirations and relaxed muscle tone or body posture Outcome: Progressing Goal: Patient will manage pain with the appropriate technique/intervention Description: Assess and monitor patient's pain using appropriate pain scale. Collaborate with interdisciplinary team and initiate plan and interventions as ordered. Re-assess patient's pain level 30-60 minutes after pain management intervention. Outcome: Progressing * Plan of Care - Tisha Rhoades RN - 05/01/2025 11:07 PM EST Problem: Knowledge Deficit Goal: Patient/family/caregiver demonstrates understanding of disease process, treatment plan, medications, and discharge instructions Description: Complete learning assessment and assess knowledge base. Outcome: Progressing Problem: Potential for Compromised Skin Integrity Goal: Skin integrity is maintained or improved Description: Assess and monitor skin integrity. Identify patients at risk for skin breakdown on admission and per policy. Collaborate with interdisciplinary team and initiate plans and interventions as needed. Outcome: Progressing Goal: Nutritional status is improving Description: Monitor and assess patient for malnutrition (ex- brittle hair, bruises, dry skin, paleskin and conjunctiva, muscle wasting, smooth red tongue, and disorientation). Collaborate with interdisciplinary team and initiate plan and interventions as ordered. Monitor patient's weight and dietary intake as ordered or per policy. Utilize nutrition screening tool and intervene per policy. Determine patient's food preferences and provide high-protein, high- caloric foods as appropriate. Outcome: Progressing * Plan of Care - Marilee Ramsey RN - 04/30/2025 10:20 PM EST Problem: Knowledge Deficit Goal: Patient/family/caregiver demonstrates understanding of disease process, treatment plan, medications, and discharge instructions Description: Complete learning assessment and assess knowledge base. Outcome: Progressing Problem: Potential for Compromised Skin Integrity Goal: Skin integrity is maintained or improved Description: Assess and monitor skin integrity. Identify patients at risk for skin breakdown on admission and per policy. Collaborate with interdisciplinary team and initiate plans and interventions as needed. Outcome: Progressing Goal: Nutritional status is improving Description: Monitor and assess patient for malnutrition (ex- brittle hair, bruises, dry skin, paleskin and conjunctiva, muscle wasting, smooth red tongue, and disorientation). Collaborate with interdisciplinary team and initiate plan and interventions as ordered. Monitor patient's weight and dietary intake as ordered or per policy. Utilize nutrition screening tool and intervene per policy. Determine patient's food preferences and provide high-protein, high- caloric foods as appropriate. Outcome: Progressing * Care Coordination - Rita Silveira RN - 04/30/2025 12:26 PM EST Health Case Management/Social Work Department Progress Note Patient Information Patient Name: Mindy Wade Hospital day: 12 Inpatient/Observation: Inpatient Level of Care: floor Admit date: 04/18/2025 Admission diagnosis: Liver transplant recipient (CMS-HCC) [Z94.4] S/P liver transplant (CMS-HCC) [Z94.4] End stage liver disease (CMS-HCC) [K72.10] PMH: has a past medical history of Abdominal hernia (02/21/2023), Alcoholic hepatitis (CMS-HCC), Anxiety, Ascites, Chronic diarrhea (08/21/2022), Cirrhosis ([facility]-HCC), Cystitis, Depression, and Hepatitis C. PCP: GEOFF GRAVES DO Home Pharmacy: [facility] [address] [facility] [address] [id number] - [place], [place] - [address] [facility] [address] [facility] [facility] [address] [address] [address] [facility] [address] [facility] - [place], [place] - [address] [facility] [address] [place] [address] Medical Insurance Coverage: Payor: AETNA MANAGED MEDICARE / Plan: AETNA MEDICARE / Product Type: *No Product type* / Other Pertinent Information Per FORMATION TESTING OPERATOR, Pt is not medically ready fro discharge at this time. Pt still has high drain output at this time. Team will continue with diuresis with albumin and assess ascites production. RNCM/SW will continue to follow. Discharge Plan Anticipated discharge plan: Team will continue to monitor Pts progress towards discharge to home with [facility]. Anticipated discharge date: ~5 days CM/SW will continue to follow and remain available for discharge planning needs. RITA SILVEIRA RN * Plan of Care - Marilee Ramsey RN - 04/30/2025 12:13 AM EST Problem: High Fall Risk Precautions Goal: High Fall Risk Precautions Outcome: Progressing Problem: Knowledge Deficit Goal: Patient/family/caregiver demonstrates understanding of disease process, treatment plan, medications, and discharge instructions Description: Complete learning assessment and assess knowledge base. Outcome: Progressing Problem: Potential for Compromised Skin Integrity Goal: Skin integrity is maintained or improved Description: Assess and monitor skin integrity. Identify patients at risk for skin breakdown on admission and per policy. Collaborate with interdisciplinary team and initiate plans and interventions as needed. Outcome: Progressing Goal: Nutritional status is improving Description: Monitor and assess patient for malnutrition (ex- brittle hair, bruises, dry skin, paleskin and conjunctiva, muscle wasting, smooth red tongue, and disorientation). Collaborate with interdisciplinary team and initiate plan and interventions as ordered. Monitor patient's weight and dietary intake as ordered or per policy. Utilize nutrition screening tool and intervene per policy. Determine patient's food preferences and provide high-protein, high- caloric foods as appropriate. Outcome: Progressing * Care Coordination - Asya Curry - 04/29/2025 12:12 PM EST [facility] Case Management/Social Work Department Progress Note Patient Information Patient Name: Mindy Wade Hospital day: 11 Inpatient/Observation: Inpatient Level of Care: Transplant Admit date: 04/18/2025 Admission diagnosis: Liver transplant recipient (CMS-HCC) [Z94.4] S/P liver transplant (CMS-HCC) [Z94.4] End stage liver disease (CMS-HCC) [K72.10] PMH: has a past medical history of Abdominal hernia (02/21/2023), Alcoholic hepatitis (CMS-HCC), Anxiety, Ascites, Chronic diarrhea (08/21/2022), Cirrhosis (CMS-HCC), Cystitis, Depression, and Hepatitis C. PCP: GEOFF GRAVES DO Home Pharmacy: [facility] [address] [facility] [address] [facility][id number] - [place], [place] - [address] [address] [address] [address] [address] [address] [address] [place] [address] [facility] - [place], [place] - [address] [facility] [address] [facility] [place] [id number] Medical Insurance Coverage: Payor: AETNA MANAGED MEDICARE / Plan: AETNA MEDICARE / Product Type: *No Product type* / Other Pertinent Information SW received update from medical team, completed chart review. Per team, pt is not medically ready for discharge. Patient accepted with [facility] ([phone]) for PT/OT, SN, and 2x weekly labs. Patient will need RW at discharge, Philip unable to cover due to insurance. Team made aware. Discharge Plan Anticipated discharge plan: Home with [facility] Anticipated discharge date: 05/01 CM/SW will continue to follow and remain available for discharge planning needs. ASIM Jackson, SPECIFICATIONS WRITER Event Specialist Product Demonstrator/Alumni Relations Manager (Float) Can be reached by [place] [phone] or [employer] secure chat * Plan of Care - Marilee Ramsey RN - 04/28/2025 11:46 PM EST Problem: High Fall Risk Precautions Goal: High Fall Risk Precautions Outcome: Progressing Problem: Knowledge Deficit Goal: Patient/family/caregiver demonstrates understanding of disease process, treatment plan, medications, and discharge instructions Description: Complete learning assessment and assess knowledge base. Outcome: Progressing Problem: Potential for Compromised Skin Integrity Goal: Skin integrity is maintained or improved Description: Assess and monitor skin integrity. Identify patients at risk for skin breakdown on admission and per policy. Collaborate with interdisciplinary team and initiate plans and interventions as needed. Outcome: Progressing Goal: Nutritional status is improving Description: Monitor and assess patient for malnutrition (ex- brittle hair, bruises, dry skin, paleskin and conjunctiva, muscle wasting, smooth red tongue, and disorientation). Collaborate with interdisciplinary team and initiate plan and interventions as ordered. Monitor patient's weight and dietary intake as ordered or per policy. Utilize nutrition screening tool and intervene per policy. Determine patient's food preferences and provide high-protein, high- caloric foods as appropriate. Outcome: Progressing * Care Coordination - Alma Macias RN - 04/28/2025 12:25 PM EST Health Case Management/Social Work Department Progress Note Patient Information Patient Name: Mindy Wade Hospital day: 10 Inpatient/Observation: Inpatient Level of Care: Floor Admit date: 04/18/2025 Admission diagnosis: Liver transplant recipient (CMS-HCC) [Z94.4] S/P liver transplant (CMS-HCC) [Z94.4] End stage liver disease (CMS-HCC) [K72.10] PMH: has a past medical history of Abdominal hernia (02/21/2023), Alcoholic hepatitis (CMS-HCC), Anxiety, Ascites, Chronic diarrhea (08/21/2022), Cirrhosis ([facility]-HCC), Cystitis, Depression, and Hepatitis C. PCP: GEOFF GRAVES DO Home Pharmacy: [facility] [address] [facility] [address] [id number] - [place], [place] [address] [address] [address] [place] [address] [address] [place] [address] [facility] [address] [facility] [place] - [address] [facility] [address] [place] [address] Medical Insurance Coverage: Payor: AETNA MANAGED MEDICARE / Plan: AETNA MEDICARE / Product Type: *No Product type* / Other Pertinent Information RN OPAL attended rounds and received an update from medical team. Pt is not MR for discharge today. Pt continues on TPN and has been advanced to a CLD. CM @ bedside to discuss discharge placement. Pt/spouse are refusing therapy rec's for IPR. Pt/spouse would like pt to discharge home with Home PT/OT or Outpatient Rehab. Pt/spouse state pt has a lot of cg support when MR to discharge home. Referrals sent and pt has been accepted by [facility] [phone]. Discharge Plan Anticipated discharge plan: [facility] vs Out pt Rehab Anticipated discharge date: 05/03 CM/SW will continue to follow and remain available for discharge planning needs. Alma LUNAN RN Care Management Services [place] [phone] * Plan of Care - Shaneka Gerber RN - 04/28/2025 11:34 AM EST Problem: High Fall Risk Precautions Goal: High Fall Risk Precautions Outcome: Progressing Problem: Knowledge Deficit Goal: Patient/family/caregiver demonstrates understanding of disease process, treatment plan, medications, and discharge instructions Description: Complete learning assessment and assess knowledge base. Outcome: Progressing Problem: Potential for Compromised Skin Integrity Goal: Skin integrity is maintained or improved Description: Assess and monitor skin integrity. Identify patients at risk for skin breakdown on admission and per policy. Collaborate with interdisciplinary team and initiate plans and interventions as needed. Outcome: Progressing * Plan of Care - Meka Marinelli RN - 04/27/2025 9:09 PM EST Problem: High Fall Risk Precautions Goal: High Fall Risk Precautions Outcome: Progressing Problem: Knowledge Deficit Goal: Patient/family/caregiver demonstrates understanding of disease process, treatment plan, medications, and discharge instructions Description: Complete learning assessment and assess knowledge base. Outcome: Progressing Problem: Potential for Compromised Skin Integrity Goal: Skin integrity is maintained or improved Description: Assess and monitor skin integrity. Identify patients at risk for skin breakdown on admission and per policy. Collaborate with interdisciplinary team and initiate plans and interventions as needed. Outcome: Progressing Goal: Nutritional status is improving Description: Monitor and assess patient for malnutrition (ex- brittle hair, bruises, dry skin, paleskin and conjunctiva, muscle wasting, smooth red tongue, and disorientation). Collaborate with interdisciplinary team and initiate plan and interventions as ordered. Monitor patient's weight and dietary intake as ordered or per policy. Utilize nutrition screening tool and intervene per policy. Determine patient's food preferences and provide high-protein, high- caloric foods as appropriate. Outcome: Progressing * Plan of Care - Sujata Rowell RN - 04/27/2025 6:12 PM EST Problem: High Fall Risk Precautions Goal: High Fall Risk Precautions Outcome: Progressing Problem: Knowledge Deficit Goal: Patient/family/caregiver demonstrates understanding of disease process, treatment plan, medications, and discharge instructions Description: Complete learning assessment and assess knowledge base. Outcome: Progressing Problem: Potential for Compromised Skin Integrity Goal: Skin integrity is maintained or improved Description: Assess and monitor skin integrity. Identify patients at risk for skin breakdown on admission and per policy. Collaborate with interdisciplinary team and initiate plans and interventions as needed. Outcome: Progressing Goal: Nutritional status is improving Description: Monitor and assess patient for malnutrition (ex- brittle hair, bruises, dry skin, paleskin and conjunctiva, muscle wasting, smooth red tongue, and disorientation). Collaborate with interdisciplinary team and initiate plan and interventions as ordered. Monitor patient's weight and dietary intake as ordered or per policy. Utilize nutrition screening tool and intervene per policy. Determine patient's food preferences and provide high-protein, high- caloric foods as appropriate. Outcome: Progressing * Care Coordination - Marylu Johnson RN - 04/27/2025 11:23 AM EST [facility] Case Management/Social Work Department Progress Note Patient Information Patient Name: Mindy Wade Hospital day: 9 Inpatient/Observation: Inpatient Level of Care: Transplant Admit date: 04/18/2025 Admission diagnosis: Liver transplant recipient (CMS-HCC) [Z94.4] S/P liver transplant (CMS-HCC) [Z94.4] End stage liver disease (CMS-HCC) [K72.10] PMH: has a past medical history of Abdominal hernia (02/21/2023), Alcoholic hepatitis (CMS-HCC), Anxiety, Ascites, Chronic diarrhea (08/21/2022), Cirrhosis (CMS-HCC), Cystitis, Depression, and Hepatitis C. PCP: GEOFF GRAVES, DO Home Pharmacy: [facility] [address] [facility] [facility] [address] [id number] - [place], [place] [address] [place] [address] [facility] - [place], [place] - [address] [facility] [address] [place] [address] Medical Insurance Coverage: Payor: AETNA MANAGED MEDICARE / Plan: AETNA MEDICARE / Product Type: *No Product type* / Other Pertinent Information RNCM received report from the Transplant Team and completed chart review. Patient is not medically ready for discharge at this time. Will follow up on [employer] choices. Facilities will need to know that patient is a liver transplant and will have Outpatient clinic appointments on Tuesdays and need facility to transport patient. Patient will need 2x weekly lab draws to be drawn at facility. UPDATE: Call received from [facility] they are unable to accept. Discharge needs have been identified. RNCM will continue to follow as needs may arise. Discharge Plan Anticipated discharge plan: IPR Anticipated discharge date: 05/05 CM/SW will continue to follow and remain available for discharge planning needs. MARYLU JOHNSON RN * Plan of Care - Cat Cummins RN - 04/27/2025 4:51 AM EST Problem: High Fall Risk Precautions Goal: High Fall Risk Precautions Outcome: Progressing Problem: Knowledge Deficit Goal: Patient/family/caregiver demonstrates understanding of disease process, treatment plan, medications, and discharge instructions Description: Complete learning assessment and assess knowledge base. Outcome: Progressing Problem: Potential for Compromised Skin Integrity Goal: Skin integrity is maintained or improved Description: Assess and monitor skin integrity. Identify patients at risk for skin breakdown on admission and per policy. Collaborate with interdisciplinary team and initiate plans and interventions as needed. Outcome: Progressing Goal: Nutritional status is improving Description: Monitor and assess patient for malnutrition (ex- brittle hair, bruises, dry skin, paleskin and conjunctiva, muscle wasting, smooth red tongue, and disorientation). Collaborate with interdisciplinary team and initiate plan and interventions as ordered. Monitor patient's weight and dietary intake as ordered or per policy. Utilize nutrition screening tool and intervene per policy. Determine patient's food preferences and provide high-protein, high- caloric foods as appropriate. Outcome: Progressing * Care Coordination - ASIM Enriquez, SPECIFICATIONS WRITER - 04/26/2025 3:19 PM EST Health Case Management/Social Work Department Progress Note Patient Information Patient Name: Mindy Wade Hospital day: 8 Inpatient/Observation: Inpatient Level of Care: Transplant/off floor Admit date: 04/18/2025 Admission diagnosis: Liver transplant recipient (CMS-HCC) [Z94.4] S/P liver transplant (CMS-HCC) [Z94.4] End stage liver disease (CMS-HCC) [K72.10] PMH: has a past medical history of Abdominal hernia (02/21/2023), Alcoholic hepatitis (CMS-HCC), Anxiety, Ascites, Chronic diarrhea (08/21/2022), Cirrhosis (CMS-HCC), Cystitis, Depression, and Hepatitis C. PCP: GEOFF GRAVES, Home Pharmacy: [facility] [address] [facility] [address] [id number] - [place] [address] [facility] [address] [facility] [address] [facility] [address] [facility] [place] [address] [facility] - [place], [place] - [address] [facility] [address] [place] [address] Medical Insurance Coverage: Payor: AETNA MANAGED MEDICARE / Plan: AETNA MEDICARE / Product Type: *No Product type* / Other Pertinent Information SWCM attended multidisciplinary rounds with the Transplant Team. SWCM reviewed patient's chart. Perteam, patient is not medically ready to discharge. CM sent IPR list via [employer] to patient and spouse. Please follow up with IPR choices. Facilities will need to know that patient is a liver transplant and will have Outpatient clinic appointmentson Tuesdays and will need facility to transport patient. Patient will need 2x weekly lab draws to be drawn at facility. Discharge Plan Anticipated discharge plan: IPR Anticipated discharge date: 05/05 CM/SW will continue to follow and remain available for discharge planning needs. ASIM ENRIQUEZ, AJ [phone] * Plan of Care - Sergey Rodas RN - 04/26/2025 8:44 AM EST Problem: High Fall Risk Precautions Goal: High Fall Risk Precautions Outcome: Progressing Problem: Knowledge Deficit Goal: Patient/family/caregiver demonstrates understanding of disease process, treatment plan, medications, and discharge instructions Description: Complete learning assessment and assess knowledge base. Outcome: Progressing Problem: Potential for Compromised Skin Integrity Goal: Skin integrity is maintained or improved Description: Assess and monitor skin integrity. Identify patients at risk for skin breakdown on admission and per policy. Collaborate with interdisciplinary team and initiate plans and interventions as needed. Outcome: Progressing Goal: Nutritional status is improving Description: Monitor and assess patient for malnutrition (ex- brittle hair, bruises, dry skin, paleskin and conjunctiva, muscle wasting, smooth red tongue, and disorientation). Collaborate with interdisciplinary team and initiate plan and interventions as ordered. Monitor patient's weight and dietary intake as ordered or per policy. Utilize nutrition screening tool and intervene per policy. Determine patient's food preferences and provide high-protein, high- caloric foods as appropriate. Outcome: Progressing * Plan of Care - Bret Arriola MD - 04/25/2025 5:21 PM EST GI plan of care note Hemoglobin is stable with less concern for further episodes of GI bleeding. No further endoscopic intervention is indicated Thank you for involving us in the care of this patient. GI will sign off. Please page if you have questions * Plan of Care - Bita Lo RN - 04/25/2025 2:42 PM EST Problem: Potential for Compromised Skin Integrity Goal: Skin integrity is maintained or improved Description: Assess and monitor skin integrity. Identify patients at risk for skin breakdown on admission and per policy. Collaborate with interdisciplinary team and initiate plans and interventions as needed. 04/25/20251440 by Bita Lo RN Outcome: Progressing 04/25/20251440 by Bita Lo RN Outcome: Progressing Goal: Nutritional status is improving Description: Monitor and assess patient for malnutrition (ex- brittle hair, bruises, dry skin, paleskin and conjunctiva, muscle wasting, smooth red tongue, and disorientation). Collaborate with interdisciplinary team and initiate plan and interventions as ordered. Monitor patient's weight and dietary intake as ordered or per policy. Utilize nutrition screening tool and intervene per policy. Determine patient's food preferences and provide high-protein, high- caloric foods as appropriate. 04/25/20251440 by Bita Lo RN Outcome: Progressing 04/25/20251440 by Bita Lo RN Outcome: Progressing Problem: Knowledge Deficit Goal: Patient/family/caregiver demonstrates understanding of disease process, treatment plan, medications, and discharge instructions Description: Complete learning assessment and assess knowledge base. 04/25/20251440 by Bita Lo RN Outcome: Progressing 04/25/20251440 by Bita Lo RN Outcome: Progressing Problem: Non-violent restraint safety Goal: Patient will be free from injury during restraint period Description: Assess and monitor for unsafe behaviors that can include unintentional harm of self orothers, risk for joint dislocation related to post- operative status, risks for potential nutrition/hydration issues related to removing/tampering with medical equipment, protection of medical procedures, or protection of medical data entry clerk access. 04/25/20251440 by Bita Lo RN Outcome: Progressing 04/25/20251440 by Bita Lo RN Outcome: Progressing Problem: Non-violent, var-ujrf-msxvfbqnkha restraints Description: Less restrictive alternative interventions will be considered prior to application of restraint devices. Goal: Patient will be restrained only to maintain safety Description: Alternatives to restraints can include; moving the patient closer to the nurses station, video monitoring where available, medicating for pain, agitation or psychosis, psychosocial interventions, manipulation of environment, frequent toileting, diversional activities, bed alarms, having family members sit with patient, frequent reorientation, or repositioning. 04/25/20251440 by Bita Lo RN Outcome: Progressing 04/25/20251440 by Bita Lo RN Outcome: Progressing Problem: High Fall Risk Precautions Goal: High Fall Risk Precautions 04/25/20251440 by Bita Lo RN Outcome: Progressing 04/25/20251440 by Bita Lo RN Outcome: Progressing * Plan of Care - Bita Lo RN - 04/25/2025 2:41 PM EST Problem: High Fall Risk Precautions Goal: High Fall Risk Precautions 04/25/20251440 by Bita oL RN Outcome: Progressing 04/25/20251440 by Bita Lo RN Outcome: Progressing Problem: Non-violent, jhf-lbvw-wlgflhekmnp restraints Description: Less restrictive alternative interventions will be considered prior to application of restraint devices. Goal: Patient will be restrained only to maintain safety Description: Alternatives to restraints can include; moving the patient closer to the nurses station, video monitoring where available, medicating for pain, agitation or psychosis, psychosocial interventions, manipulation of environment, frequent toileting, diversional activities, bed alarms, having family members sit with patient, frequent reorientation, or repositioning. 04/25/20251440 by Bita Lo RN Outcome: Progressing 04/25/20251440 by Bita Lo RN Outcome: Progressing Problem: Knowledge Deficit Goal: Patient/family/caregiver demonstrates understanding of disease process, treatment plan, medications, and discharge instructions Description: Complete learning assessment and assess knowledge base. 04/25/2025 144 by Bita Lo RN Outcome: Progressing 04/25/20251440 by Bita Lo RN Outcome: Progressing Problem: Potential for Compromised Skin Integrity Goal: Skin integrity is maintained or improved Description: Assess and monitor skin integrity. Identify patients at risk for skin breakdown on admission and per policy. Collaborate with interdisciplinary team and initiate plans and interventions as needed. 04/25/2025 144 by Bita Lo RN Outcome: Progressing 04/25/20251440 by Bita Lo RN Outcome: Progressing Goal: Nutritional status is improving Description: Monitor and assess patient for malnutrition (ex- brittle hair, bruises, dry skin, paleskin and conjunctiva, muscle wasting, smooth red tongue, and disorientation). Collaborate with interdisciplinary team and initiate plan and interventions as ordered. Monitor patient's weight and dietary intake as ordered or per policy. Utilize nutrition screening tool and intervene per policy. Determine patient's food preferences and provide high-protein, high- caloric foods as appropriate. 04/25/20251440 by Bita Lo RN Outcome: Progressing 04/25/20251440 by Bita Lo RN Outcome: Progressing * Care Coordination - ASIM Enriquez, AJ - 04/25/2025 1:17 PM EST [facility] Case Management/Social Work Department Progress Note Patient Information Patient Name: Mindy Wade Hospital day: 7 Inpatient/Observation: Inpatient Level of Care: Transplant/off floor Admit date: 04/18/2025 Admission diagnosis: Liver transplant recipient (CMS-HCC) [Z94.4] S/P liver transplant (CMS-HCC) [Z94.4] End stage liver disease (CMS-HCC) [K72.10] PMH: has a past medical history of Abdominal hernia (02/21/2023), Alcoholic hepatitis (CMS-HCC), Anxiety, Ascites, Chronic diarrhea (08/21/2022), Cirrhosis (CMS-HCC), Cystitis, Depression, and Hepatitis C. PCP: GEOFF GRAVES DO Home Pharmacy: [facility] [address] [facility] [address] [id number] - [place], [place] [address] [address] [place] [address] [facility] - [place] [address] [facility] [address] [facility] [place] [place] [address] Medical Insurance Coverage: Payor: [employer] MANAGED MEDICARE / Plan: AETNA MEDICARE / Product Type: *No Product type* / Other Pertinent Information SWCM attended multidisciplinary rounds with the Transplant Team. SWCM reviewed patient's chart. Perteam, patient is not medically ready to discharge. Patient is set up with [facility] [phone] for PT/OT-SN-2x weekly labs. Discharge Plan Anticipated discharge plan: Home w [facility] Anticipated discharge date: 04/29 CM/SW will continue to follow and remain available for discharge planning needs. ASIM ENRIQUEZ, AJ [phone] * Plan of Care - Jaydon Brandt MD - 04/24/2025 9:27 AM EST ICU ATTENDING NOTE: This patient was seen by the Surgical ICU team and the Transplant team; I have personally seen thispatient, examined this patient, and my assessment and plan for coordinated critical care managementreveals: I note the following interval events: 35 y.o. 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 She has been ETOH free for several years. She presents today for living donor liver transplant. [facility]. Emergently transferred to sicu. Emergently intubated, central line, A line, code event. Hospital course 04/18/25 OLT living donor 04/23/25 Emergently transferred to SICU, intubated, code event. ROSC. EGD at bedside the UGIB, no active bleeding. Return to OR for evaluation of JJ, no active bleeding, closed anterior wall. Events over 24 hours OR for JJ evaluation. Plan for today Extubation. D/c MAC today. HEENT: No Acute Issues RESPIRATORY: Atelectasis/pulmonary collapse Hypoxia Respiratory acidosis Respiratory failure with hypercarbia Vent Mode: VC-SIMV/PRVC FiO2: [39 %-92 %] 40 % S RR: [14-16] 14 S VT: [410 mL] 410 mL PEEP/CPAP: [0 cm H20-13 cm H20] 8 cm H20 Lab Results Component Value Date PHART 7.37 04/24/2025 PCO2 40 04/24/2025 PO2ART 107 (H) 04/24/2025 APH2TPW 23 04/24/2025 BEART -2.0 04/24/2025 NUB1RIM 97.3 04/24/2025 V7HFCALV 100 04/24/2025 P:F ratio = 268 Passed SBT. Extubation today. CARDIOVASCULAR: Hypertension, unspecified Shock, Hypovolemic - hold home carvedilol, may resume tomorrrow. - off pressors. NUTRITION: Signs of malnutrition by BMI or weight loss on admission? No No acute issues GASTROINTESTINAL: Cirrhosis, alcoholic Upper GIB. - s/p living donor liver transplant 04/18 - steroid taper, cellcept, tacro per TXP - EGD 04/23 with blood in duodenum but no active bleeding. - PPI BID. - s/p return to OR 04/23 for ex lap, evaluation of JJ without any bleeding noted, anterior wall closed. FLUIDS / ELECTROLYTES: Hyperphosphatemia - trend labs - replace electrolytes as indicated No need to shift at this time. Cont NS @ 75 cc/hr. RENAL: Acute kidney injury - trend labs and UOP. Creatinine improving. Now 1.25 . SKIN/MUSCULOSKELETAL: No acute issues HEMATOLOGIC: Acute post hemorrhagic anemia Coagulopathy, unspecified Thrombocytopenia, unspecified - trend labs - transfuse as indicated per transplant - Trend Hb, INR, TEG ENDOCRINE: Hyperglycemia - on HDSSI. Goal BG < 180. INFECTIOUS DISEASE: Leukocytosis - leukocytosis reactive. No signs of infection. - TXP proph with valcyte, bactrim NEUROLOGIC: No acute issues PSYCHIATRIC, PAIN, SEDATION: Pain Management - off sedation protocol. Start IV tylenol, prn dilaudid. ACTIVE LINES: Patient Lines/Drains/Airways Status Active Epidural Line / PICC Line / PIV Line / ART Line / Line / CVC Line Name Placement date Placement time Site Days PICC Double Lumen 04/21/25 Right Brachial 04/21/25 0839 Brachial 3 Arterial Line 04/23/25 Right Femoral 04/23/25 0453 Femoral 1 CVC Double Lumen 04/23/25 Left Femoral 04/23/25 0516 Femoral 1 Central Line? Yes - Reason: Hemodynamic monitoring d/c mac today. Arterial line? Yes ACTIVE DRAINS: Urinary Catheter? Ybarra - Reason: Adequate I/O DVT Prophylaxis: Contraindicated bleeding, will discuss with primary restarting today. GI Prophylaxis: PPI DISPOSITION: SICU I saw and examined the patient and discussed the case with the resident and agree with the findingsand plan as documented in the resident's note. Total time delivering critical care for this patient including direction of initial assessment, evaluation, development of a plan, discussion with consultants, and family but excluding time spent performing any associated procedures was 33 minutes on 04/24/2025. Jaydon Brandt MD Section of General Surgery Divisions of Trauma, Acute Care Surgery, and Surgical Critical Care [facility] Academic Office [phone] For Transfers, call [phone] * Plan of Care - Elza Ramírez RN - 04/23/2025 8:00 AM EDT Patient in bilateral soft wrist restraints to maintain patient safety and protect medical devices. Will continue to monitor and reassess need for restraints. See restraint flowsheet for further documentation. Problem: Non-violent, vah-sbww-etrwefopijo restraints Description: Less restrictive alternative interventions will be considered prior to application of restraint devices. Goal: Patient will be restrained only to maintain safety Description: Alternatives to restraints can include; moving the patient closer to the nurses station, video monitoring where available, medicating for pain, agitation or psychosis, psychosocial interventions, manipulation of environment, frequent toileting, diversional activities, bed alarms, having family members sit with patient, frequent reorientation, or repositioning. Outcome: Progressing Problem: Non-violent restraint safety Goal: Patient will be free from injury during restraint period Description: Assess and monitor for unsafe behaviors that can include unintentional harm of self orothers, risk for joint dislocation related to post- operative status, risks for potential nutrition/hydration issues related to removing/tampering with medical equipment, protection of medical procedures, or protection of medical data entry clerk access. Outcome: Progressing * Plan of Care - Ana Lion MD - 04/23/2025 1:02 AM EDT Brief Transplant Surgery Update Subjective: Evaluated patient at bedside for concern for lethargy, abdominal pain, and hypotension. Patient states has been increasingly drowsy over course of evening. Some increased mary-incisional pain. New melena Objective: Vitals reviewed Vitals: 04/23/25 0020 BP: (!) 85/50 Pulse: 95 Resp: 14 Temp: 97.5 ??F (36.4 ??C) SpO2: 92% Physical Exam: Gen: lethargic, conversant, mild distress CV: regular rate, rhythm Resp: no respiratory distress, RA Abd: incision intact with sergio, drains w/ minimal serous drainage Ext: moving all extremities spontaneously Neuro: A&Ox4 Recent Labs 04/22/25 0606 04/22/25 2304 04/23/25 0003 WBC 4.1 6.8 7.0 HGB 9.6* 6.1* 5.5* HCT 27.7* 18.0* 16.1* PLT 48* 88* 85* Recent Labs 04/21/25 0900 04/22/25 0606 04/22/25 2304 NA 136 137 133 K 4.1 4.2 4.8 CL 109 108 106 CO2 21 22 23 BUN 64* 43* 40* CREATININE 1.40* 1.14 1.34* Assessment/Plan: - 1L bolus running - 2u pRBC ordered - transfer to SICU - NPO/IVF - hold SQH - monitor for hemodynamic improvement - trend hgb - discuss scan vs return to OR if no improvement and c/f active bleeding ANA LION MD General Surgery Resident 04/23/2025 1:07 AM * Plan of Care - Griselda Doll RN - 04/22/2025 6:46 PM EDT Problem: High Fall Risk Precautions Goal: High Fall Risk Precautions Outcome: Progressing Problem: Knowledge Deficit Goal: Patient/family/caregiver demonstrates understanding of disease process, treatment plan, medications, and discharge instructions Description: Complete learning assessment and assess knowledge base. Outcome: Progressing Problem: Potential for Compromised Skin Integrity Goal: Skin integrity is maintained or improved Description: Assess and monitor skin integrity. Identify patients at risk for skin breakdown on admission and per policy. Collaborate with interdisciplinary team and initiate plans and interventions as needed. Outcome: Progressing Goal: Nutritional status is improving Description: Monitor and assess patient for malnutrition (ex- brittle hair, bruises, dry skin, paleskin and conjunctiva, muscle wasting, smooth red tongue, and disorientation). Collaborate with interdisciplinary team and initiate plan and interventions as ordered. Monitor patient's weight and dietary intake as ordered or per policy. Utilize nutrition screening tool and intervene per policy. Determine patient's food preferences and provide high-protein, high- caloric foods as appropriate. Outcome: Progressing * Care Coordination - ASIM Enriquez LSW - 04/22/2025 2:03 PM EDT [facility] Case Management/Social Work Department Progress Note Patient Information Patient Name: Mindy Wade Hospital day: 4 Inpatient/Observation: Inpatient Level of Care: Transplant/floor Admit date: 04/18/2025 Admission diagnosis: Liver transplant recipient (CMS-HCC) [Z94.4] S/P liver transplant (CMS-HCC) [Z94.4] PMH: has a past medical history of Abdominal hernia (02/21/2023), Alcoholic hepatitis (CMS-HCC), Anxiety, Ascites, Chronic diarrhea (08/21/2022), Cirrhosis (CMS-HCC), Cystitis, Depression, and Hepatitis C. PCP: GEOFF GRAVES DO Home Pharmacy: [facility] [address] [facility] [address] [id number] - [place], [place] [address] [address] [address] [facility] [address] [place] [address] [facility] [place] [place] [address] [facility] [address] [place] [address] Medical Insurance Coverage: Payor: A[employer] MANAGED MEDICARE / Plan: AET[employer] MEDICARE / Product Type: *No Product type* / Other Pertinent Information SWCM attended multidisciplinary rounds with the Transplant Team. SWCM reviewed patient's chart. Pertea, patient is not medically ready to discharge. SWCM spoke to patient at bedside about insurance not covering the tub transfer bench. Patient is declining to pay out of pocket. Patient has support at home. Patient is set up with [facility] [phone] for PT/OT-SN-2x weekly labs. Discharge Plan Anticipated discharge plan: Home w [facility] Anticipated discharge date: 04/25 CM/SW will continue to follow and remain available for discharge planning needs. ASIM ENRIQUEZ, SPECIFICATIONS WRITER [phone] * Plan of Care - Marilee Ramsey RN - 04/22/2025 3:06 AM EDT Problem: High Fall Risk Precautions Goal: High Fall Risk Precautions Outcome: Progressing Problem: Potential for Compromised Skin Integrity Goal: Skin integrity is maintained or improved Description: Assess and monitor skin integrity. Identify patients at risk for skin breakdown on admission and per policy. Collaborate with interdisciplinary team and initiate plans and interventions as needed. Outcome: Progressing Problem: Potential for Compromised Skin Integrity Goal: Nutritional status is improving Description: Monitor and assess patient for malnutrition (ex- brittle hair, bruises, dry skin, paleskin and conjunctiva, muscle wasting, smooth red tongue, and disorientation). Collaborate with interdisciplinary team and initiate plan and interventions as ordered. Monitor patient's weight and dietary intake as ordered or per policy. Utilize nutrition screening tool and intervene per policy. Determine patient's food preferences and provide high-protein, high- caloric foods as appropriate. Outcome: Not Progressing * Care Coordination - Krys Vick - 04/21/2025 11:49 AM EDT CCA was advised patient require a tub transfer bench for discharge. KRISTAL advised patient insurance does not cover tub transfer bench, it will be an out of pocket expense of $75.00. Shelly iVck Alumni Relations Manager Aviation Neuropsychologist Care Management Services [phone] * Care Coordination - ASIM Enriquez LSW - 04/21/2025 11:42 AM EDT [facility] Case Management/Social Work Department Progress Note Patient Information Patient Name: Mindy Wade Hospital day: 3 Inpatient/Observation: Inpatient Level of Care: Transplant/floor Admit date: 04/18/2025 Admission diagnosis: Liver transplant recipient (CMS-HCC) [Z94.4] S/P liver transplant (CMS-HCC) [Z94.4] PMH: has a past medical history of Abdominal hernia (02/21/2023), Alcoholic hepatitis (CMS-HCC), Anxiety, Ascites, Chronic diarrhea (08/21/2022), Cirrhosis (CMS-HCC), Cystitis, Depression, and Hepatitis C. PCP: GEOFF GRAVES DO Home Pharmacy: [facility] [address] [facility] [address] [facility] [id number] - [place], [place] - [address] [employer] [facility] [address] [address] [address] [address] [place] [address] [facility] - [place] - [address] [place] [address] Medical Insurance Coverage: Payor: AET[employer] MANAGED MEDICARE / Plan: AET[employer] MEDICARE / Product Type: *No Product type* / Other Pertinent Information ORALIACM attended multidisciplinary rounds with the Transplant Team. SWCM reviewed patient's chart. Perteam, patient is not medically ready to discharge. Patient is set up with [facility] [phone] for PT/OT-SN-2x weekly lab draws. DME-tub transfer bench-is not covered by insurance. Discharge Plan Anticipated discharge plan: Home w [facility] Anticipated discharge date: 04/23 CM/SW will continue to follow and remain available for discharge planning needs. ASIM ENRIQUEZ, AJ [phone] * Care Coordination - Krys Vick - 04/20/2025 3:10 PM EDT CCA was advised patient require [facility] for PT/OT-SN-2x weekly labs for discharge. CCA sent referrals, awaiting response. CCA will follow. [facility] [phone] accepted patient for home pt/ot/sn. -this has been communicated to the team. Shelly Vick Alumni Relations Manager Aviation Neuropsychologist Care Management Services [phone] * Plan of Care - Marylu Haddad RN - 04/20/2025 8:00 AM EDT Problem: High Fall Risk Precautions Goal: High Fall Risk Precautions Outcome: Progressing Problem: Knowledge Deficit Goal: Patient/family/caregiver demonstrates understanding of disease process, treatment plan, medications, and discharge instructions Description: Complete learning assessment and assess knowledge base. Outcome: Progressing Problem: Potential for Compromised Skin Integrity Goal: Skin integrity is maintained or improved Description: Assess and monitor skin integrity. Identify patients at risk for skin breakdown on admission and per policy. Collaborate with interdisciplinary team and initiate plans and interventions as needed. Outcome: Progressing Goal: Nutritional status is improving Description: Monitor and assess patient for malnutrition (ex- brittle hair, bruises, dry skin, paleskin and conjunctiva, muscle wasting, smooth red tongue, and disorientation). Collaborate with interdisciplinary team and initiate plan and interventions as ordered. Monitor patient's weight and dietary intake as ordered or per policy. Utilize nutrition screening tool and intervene per policy. Determine patient's food preferences and provide high-protein, high- caloric foods as appropriate. Outcome: Progressing * Plan of Care - Estela Mckeon RN - 04/19/2025 9:25 PM EDT Problem: High Fall Risk Precautions Goal: High Fall Risk Precautions Outcome: Progressing Problem: Knowledge Deficit Goal: Patient/family/caregiver demonstrates understanding of disease process, treatment plan, medications, and discharge instructions Description: Complete learning assessment and assess knowledge base. Outcome: Progressing Problem: Potential for Compromised Skin Integrity Goal: Skin integrity is maintained or improved Description: Assess and monitor skin integrity. Identify patients at risk for skin breakdown on admission and per policy. Collaborate with interdisciplinary team and initiate plans and interventions as needed. Outcome: Progressing * Plan of Care - Judith Macias RN - 04/19/2025 2:23 PM EDT Problem: High Fall Risk Precautions Goal: High Fall Risk Precautions Outcome: Progressing * Plan of Care - Enedina Spear RN - 04/19/2025 1:01 AM EDT Problem: Non-violent, gka-srev-xzgbivwfuxz restraints Description: Less restrictive alternative interventions will be considered prior to application of restraint devices. Goal: Patient will be restrained only to maintain safety Description: Alternatives to restraints can include; moving the patient closer to the nurses station, video monitoring where available, medicating for pain, agitation or psychosis, psychosocial interventions, manipulation of environment, frequent toileting, diversional activities, bed alarms, having family members sit with patient, frequent reorientation, or repositioning. 04/19/2025 010 by Enedina Spear RN Outcome: Completed 04/19/202599 by Enedina Spear RN Outcome: Progressing Problem: Non-violent restraint safety Goal: Patient will be free from injury during restraint period Description: Assess and monitor for unsafe behaviors that can include unintentional harm of self orothers, risk for joint dislocation related to post- operative status, risks for potential nutrition/hydration issues related to removing/tampering with medical equipment, protection of medical procedures, or protection of medical data entry clerk access. 04/19/2025 010 by Enedina Spear RN Outcome: Completed 04/19/202599 by Enedina Spear RN Outcome: Progressing * Plan of Care - Enedina Spear RN - 04/18/2025 8:00 PM EDT Problem: High Fall Risk Precautions Goal: High Fall Risk Precautions Outcome: Progressing Problem: Non-violent, [id number] restraints Description: Less restrictive alternative interventions will be considered prior to application of restraint devices. Goal: Patient will be restrained only to maintain safety Description: Alternatives to restraints can include; moving the patient closer to the nurses station, video monitoring where available, medicating for pain, agitation or psychosis, psychosocial interventions, manipulation of environment, frequent toileting, diversional activities, bed alarms, having family members sit with patient, frequent reorientation, or repositioning. Outcome: Progressing Problem: Non-violent restraint safety Goal: Patient will be free from injury during restraint period Description: Assess and monitor for unsafe behaviors that can include unintentional harm of self orothers, risk for joint dislocation related to post- operative status, risks for potential nutrition/hydration issues related to removing/tampering with medical equipment, protection of medical procedures, or protection of medical data entry clerk access. Outcome: Progressing Patient in bilateral locked upper restraints to maintain patient safety and protect medical devices. Will continue to reassess need for restraints. See restraint flowsheet for further documentation. documented in this encounter Plan of Treatment Pending Results Name Type Priority Associated Diagnoses Date /Time Free Calcium, Whole Blood Lab Routine 04/23/2025 2:54 AM EDT Scheduled Orders Name Type Priority Associated Diagnoses Orde r Schedule Free Calcium, Whole Blood Lab Routine Once for 1 Occur rences starting 04/23/2025 until 04/23/2025 documented as of this encounter Procedures Procedure Name Priority Date/Time Associated Diagnosis Comments PERFUSION RECORD - SCAN 05/21/2025 4:02 PM EST EKG - SCAN 05/04/2025 7:57 AM EST BLOOD TRANSFUSION - SCAN 05/04/2025 7:49 AM EST PREPARE RBC, LEUKOREDUCED Routine 05/04/2025 6:15 AM EST POC GLU MONITORING DEVICE Routine 05/03/2025 12:17 PM EST TRANSFUSE RED BLOOD CELLS Routine 05/03/2025 10:49 AM EST ABO/RH Routine 05/03/2025 9:05 AM EST ANTIBODY SCREEN Routine 05/03/2025 9:05 AM EST POC GLU MONITORING DEVICE Routine 05/03/2025 7:52 AM EST HEPATIC FUNCTION PANEL Routine 5:46 AM EST RENAL FUNCTION PANEL W/EGFR Routine 05/03/2025 5:46 AM EST TACROLIMUS LEVEL Timed 05/03/2025 5:46 AM EST CBC Routine 05/03/2025 5:46 AM EST MAGNESIUM Routine 05/03/2025 5:46 AM EST POC GLU MONITORING DEVICE Routine 05/02/2025 9:09 PM EST POC GLU MONITORING DEVICE Routine 05/02/2025 5:02 PM EST POC GLU MONITORING DEVICE Routine 05/02/2025 10:52 AM EST POC GLU MONITORING DEVICE Routine 05/02/2025 5:58 AM EST HEPATIC FUNCTION PANEL Routine 5:34 AM EST RENAL FUNCTION PANEL W/EGFR STAT 05/02/2025 5:34 AM EST TACROLIMUS LEVEL Timed 05/02/2025 5:34 AM EST CBC Routine 05/02/2025 5:34 AM EST TRIGLYCERIDES Routine 05/02/2025 5:34 AM EST MAGNESIUM Routine 05/02/2025 5:34 AM EST POC GLU MONITORING DEVICE Routine 05/01/2025 11:58 PM EST MRI ABDOMEN W AND WO CONTRAST STAT 05/01/2025 11:40 PM EST POC GLU MONITORING DEVICE Routine 05/01/2025 11:14 AM EST PROTIME-INR STAT 05/01/2025 10:21 AM EST POC GLU MONITORING DEVICE Routine 05/01/2025 7:38 AM EST HEPATIC FUNCTION PANEL Routine 6:09 AM EST RENAL FUNCTION PANEL W/EGFR Routine 05/01/2025 6:09 AM EST TACROLIMUS LEVEL Timed 05/01/2025 6:09 AM EST CBC Routine 05/01/2025 6:09 AM EST MAGNESIUM Routine 05/01/2025 6:09 AM EST POC GLU MONITORING DEVICE Routine 05/01/2025 12:02 AM EST POC GLU MONITORING DEVICE Routine 04/30/2025 4:59 PM EST POC GLU MONITORING DEVICE Routine 04/30/2025 3:47 PM EST POC GLU MONITORING DEVICE Routine 04/30/2025 12:08 PM EST POC GLU MONITORING DEVICE Routine 04/30/2025 8:44 AM EST HEPATIC FUNCTION PANEL Routine 5:12 AM EST RENAL FUNCTION PANEL W/EGFR Routine 04/30/2025 5:12 AM EST TACROLIMUS LEVEL Timed 04/30/2025 5:12 AM EST CBC Routine 04/30/2025 5:12 AM EST MAGNESIUM Routine 04/30/2025 5:12 AM EST POC GLU MONITORING DEVICE Routine 04/29/2025 10:12 PM EST POC GLU MONITORING DEVICE Routine 04/29/2025 5:04 PM EST POC GLU MONITORING DEVICE Routine 04/29/2025 12:58 PM EST POC GLU MONITORING DEVICE Routine 04/29/2025 11:54 AM EST US DUPLEX [id number] COMPLETE STAT 04/29/2025 11:18 AM EST US ABDOMEN LIMITED STAT 04/29/2025 11:18 AM EST ECHO COMPLETE STAT 04/29/2025 10:[address] ABDOMEN AND PELVIS WITH IV CONTRAST STAT 04/29/2025 6:06 AM EST HEPATIC FUNCTION PANEL Routine 5:25 AM EST RENAL FUNCTION PANEL W/EGFR STAT 04/29/2025 5:25 AM EST TACROLIMUS LEVEL Timed 04/29/2025 5:25 AM EST CBC Routine 04/29/2025 5:25 AM EST MAGNESIUM Routine 04/29/2025 5:25 AM EST POC GLU MONITORING DEVICE Routine 04/29/2025 5:06 AM EST POC GLU MONITORING DEVICE Routine 04/28/2025 11:10 PM EST POC GLU MONITORING DEVICE Routine 04/28/2025 5:19 PM EST POC GLU MONITORING DEVICE Routine 04/28/2025 10:58 AM EST POC GLU MONITORING DEVICE Routine 04/28/2025 6:43 AM EST HEPATIC FUNCTION PANEL Routine 6:37 AM EST RENAL FUNCTION PANEL W/EGFR Routine 04/28/2025 6:37 AM EST TACROLIMUS LEVEL Timed 04/28/2025 6:37 AM EST CBC Routine 04/28/2025 6:37 AM EST MAGNESIUM Routine 04/28/2025 6:37 AM EST POC GLU MONITORING DEVICE Routine 04/27/2025 11:04 PM EST CORNELIUS RHYTHM STRIP - SCAN 04/27/2025 7:26 PM EST ECG 12-LEAD (MUSE) Routine 04/27/2025 5: 57 PM EST POC GLU MONITORING DEVICE Routine 04/27/2025 5:55 PM EST TRIGLYCERIDES Routine 04/27/2025 11:36 AM EST POC GLU MONITORING DEVICE Routine 04/27/2025 11:31 AM EST XR PORTABLE ABDOMEN AP STAT 6:50 AM EST POC GLU MONITORING DEVICE Routine 04/27/2025 5:03 AM EST POC GLU MONITORING DEVICE Routine 04/27/2025 5:01 AM EST POC GLU MONITORING DEVICE Routine 04/27/2025 5:00 AM EST TACROLIMUS LEVEL Timed 04/27/2025 4:56 AM EST CBC Routine 04/27/2025 4:56 AM EST HEPATIC FUNCTION PANEL STAT 3:01 AM EST PHOSPHORUS STAT 04/27/2025 3:01 AM EST MAGNESIUM STAT 04/27/2025 3:01 AM EST BASIC METABOLIC PANEL STAT 04/27/2025 3:01 AM EST CBC Routine 04/26/2025 11:55 PM EST POC GLU MONITORING DEVICE Routine 04/26/2025 10:50 PM EST ABO/RH Routine 04/26/2025 6:02 PM EST ANTIBODY SCREEN Routine 04/26/2025 6:02 PM EST POC GLU MONITORING DEVICE Routine 04/26/2025 6:00 PM EST RENAL FUNCTION PANEL W/EGFR Routine 04/26/2025 4:16 PM EST CBC STAT 04/26/2025 4:16 PM EST PHOSPHORUS Routine 04/26/2025 4:16 PM EST MAGNESIUM Routine 04/26/2025 4:16 PM EST POC GLU MONITORING DEVICE Routine 04/26/2025 12:50 PM EST VAS VENOUS DUPLEX UPPER RIGHT STAT 04/26/2025 11:55 AM EST Generalized edema Localized swelling, mass, or lump of upper extremity, right XR PORTABLE ABDOMEN AP Routine 8:57 AM EST TACROLIMUS LEVEL Timed 04/26/2025 7:47 AM EST CBC Routine 04/26/2025 7:47 AM EST POC GLU MONITORING DEVICE Routine 04/26/2025 7:44 AM EST HEPATIC FUNCTION PANEL Routine 6:09 AM EST RENAL FUNCTION PANEL W/EGFR STAT 04/26/2025 6:09 AM EST MAGNESIUM Routine 04/26/2025 6:09 AM EST POC GLU MONITORING DEVICE Routine 04/26/2025 2:19 AM EST CALCIUM FREE, SERUM Routine 04/26/2025 12:27 AM EST POC GLU MONITORING DEVICE Routine 04/26/2025 12:13 AM EST RENAL FUNCTION PANEL W/EGFR STAT 04/26/2025 12:12 AM EST MAGNESIUM Routine 04/26/2025 12:12 AM EST CBC Routine 04/25/2025 9:01 PM EST RENAL FUNCTION PANEL W/EGFR STAT 04/25/2025 5:40 PM EST MAGNESIUM Routine 04/25/2025 5:40 PM EST RENAL FUNCTION PANEL W/EGFR STAT 04/25/2025 11:34 AM EST MAGNESIUM Routine 04/25/2025 11:34 AM EST US DUPLEX [id number] COMPLETE STAT 04/25/2025 10:36 AM EST US ABDOMEN LIMITED STAT 04/25/2025 10:36 AM EST FREE CALCIUM, WHOLE BLOOD Routine 04/25/2025 8:13 AM EST TACROLIMUS LEVEL Timed 04/25/2025 8:13 AM EST LACTIC ACID, ARTERIAL, WHOLE BLOOD Routine 04/25/2025 8:13 AM EST CBC Routine 04/25/2025 8:13 AM EST BLOOD GAS, ARTERIAL Routine 04/25/2025 8 :13 AM EST HEPATIC FUNCTION PANEL Routine 5:18 AM EST RENAL FUNCTION PANEL W/EGFR STAT 04/25/2025 5:18 AM EST PROTIME-INR Routine 04/25/2025 5:18 AM EST CBC Routine 04/25/2025 5:18 AM EST MAGNESIUM Routine 04/25/2025 5:18 AM EST POC GLU MONITORING DEVICE Routine 04/25/2025 5:17 AM EST RENAL FUNCTION PANEL W/EGFR STAT 04/25/2025 12:05 AM EST CBC Routine 04/25/2025 12:05 AM EST MAGNESIUM Routine 04/25/2025 12:05 AM EST POC GLU MONITORING DEVICE Routine 04/25/2025 12:04 AM EST RENAL FUNCTION PANEL W/EGFR STAT 04/24/2025 6:40 PM EST CBC Routine 04/24/2025 6:40 PM EST MAGNESIUM Routine 04/24/2025 6:40 PM EST POC GLU MONITORING DEVICE Routine 04/24/2025 6:38 PM EST RENAL FUNCTION PANEL W/EGFR STAT 04/24/2025 12:29 PM EST CBC Routine 04/24/2025 12:29 PM EST MAGNESIUM Routine 04/24/2025 12:29 PM EST BLOOD GAS, ARTERIAL STAT 04/24/2025 12:29 PM EST POC GLU MONITORING DEVICE Routine 04/24/2025 12:25 PM EST XR PORTABLE CHEST STAT 04/24/2025 8:5 2 AM EST TACROLIMUS LEVEL Timed 04/24/2025 7:57 AM EST PREPARE PLATELETS, LEUKOREDUCED STAT 04/24/2025 6:15 AM EST PREPARE FRESH FROZEN PLASMA STAT 04/24/2025 6:15 AM EST PREPARE CRYOPRECIPITATE STAT 04/24/2025 6:15 AM EST PREPARE CRYOPRECIPITATE STAT 04/24/2025 6:15 AM EST PREPARE RBC, LEUKOREDUCED STAT 04/24/2025 6:15 AM EST PREPARE RBC, LEUKOREDUCED Routine 04/24/2025 6:15 AM EST PREPARE RBC, LEUKOREDUCED STAT 04/24/2025 6:15 AM EST PREPARE RBC, LEUKOREDUCED STAT 04/24/2025 6:15 AM EST PREPARE RBC, LEUKOREDUCED Routine 04/24/2025 6:15 AM EST BLOOD GAS, ARTERIAL STAT 04/24/2025 5 :43 AM EST POC GLU MONITORING DEVICE Routine 04/24/2025 4:38 AM EST TEG-BYPASS/ECMO/LIVER HN (FACTOR FUNCTION, PLATELET/FIBRIN CLOT STRENGTH W/CLOT BREAKDOWN, HEPARINASE IN ALL CHANNELS) STAT 04/24/2025 4:36 AM EST HEPATIC FUNCTION PANEL Routine 4:36 AM EST RENAL FUNCTION PANEL W/EGFR STAT 04/24/2025 4:36 AM EST PROTIME-INR STAT 04/24/2025 4:36 AM EST CBC Routine 04/24/2025 4:36 AM EST MAGNESIUM Routine 04/24/2025 4:36 AM EST POC GLU MONITORING DEVICE Routine 04/24/2025 12:12 AM EDT TEG-BYPASS/ECMO/LIVER HN (FACTOR FUNCTION, PLATELET/FIBRIN CLOT STRENGTH W/CLOT BREAKDOWN, HEPARINASE IN ALL CHANNELS) STAT 04/24/2025 12:00 AM EDT RENAL FUNCTION PANEL W/EGFR STAT 04/24/2025 12:00 AM EDT PROTIME-INR STAT 04/24/2025 12:00 AM EDT CBC Routine 04/24/2025 12:00 AM EDT MAGNESIUM Routine 04/24/2025 12:00 AM EDT BLOOD GAS, ARTERIAL STAT 04/24/2025 12:00 AM EDT TEG-BYPASS/ECMO/LIVER HN (FACTOR FUNCTION, PLATELET/FIBRIN CLOT STRENGTH W/CLOT BREAKDOWN, HEPARINASE IN ALL CHANNELS) STAT 04/23/2025 6:11 PM EDT RENAL FUNCTION PANEL W/EGFR STAT 04/23/2025 6:11 PM EDT PROTIME-INR STAT 04/23/2025 6:11 PM EDT CBC Routine 04/23/2025 6:11 PM EDT MAGNESIUM Routine 04/23/2025 6:11 PM EDT BLOOD GAS, ARTERIAL STAT 04/23/2025 6 :11 PM EDT POC GLU MONITORING DEVICE Routine 04/23/2025 6:09 PM EDT US DUPLEX [id number] COMPLETE STAT 04/23/2025 2:12 PM EDT US ABDOMEN LIMITED STAT 04/23/2025 2: 12 PM EDT PROTIME-INR STAT 04/23/2025 1:44 PM EDT BLOOD GAS, ARTERIAL STAT 04/23/2025 1 :44 PM EDT XR PORTABLE CHEST STAT 04/23/2025 11:46 AM EDT TEG-BYPASS/ECMO/LIVER HN (FACTOR FUNCTION, PLATELET/FIBRIN CLOT STRENGTH W/CLOT BREAKDOWN, HEPARINASE IN ALL CHANNELS) STAT 04/23/2025 11:46 AM EDT RENAL FUNCTION PANEL W/EGFR Add-On 04/23/2025 11:46 AM EDT FREE CALCIUM, WHOLE BLOOD STAT 04/23/2025 11:46 AM EDT MAGNESIUM Routine 04/23/2025 11:46 AM EDT BLOOD GAS, ARTERIAL STAT 04/23/2025 11:46 AM EDT HEPATIC FUNCTION PANEL STAT 11:30 AM EDT LACTIC ACID STAT 04/23/2025 11:30 AM EDT RENAL FUNCTION PANEL W/EGFR STAT 04/23/2025 11:30 AM EDT PROTIME-INR STAT 04/23/2025 11:30 AM EDT CBC STAT 04/23/2025 11:30 AM EDT MAGNESIUM STAT 04/23/2025 11:30 AM EDT POC GLU MONITORING DEVICE Routine 04/23/2025 11:29 AM EDT PREPARE FRESH FROZEN PLASMA Routine 04/23/2025 11:13 AM EDT TRANSFUSE RED BLOOD CELLS STAT 04/23/2025 10:50 AM EDT ROUTINE CULTURE PLUS STAIN Routine 04/23/2025 9:53 AM EDT FUNGUS CULTURE Routine 04/23/2025 9:53 AM EDT ANAEROBIC CULTURE Routine 04/23/2025 9:5 3 AM EDT ARTERIAL BLOOD GAS PANEL STAT 04/23/2025 9:37 AM EDT TEG-BYPASS/ECMO/LIVER HN (FACTOR FUNCTION, PLATELET/FIBRIN CLOT STRENGTH W/CLOT BREAKDOWN, HEPARINASE IN ALL CHANNELS) STAT 04/23/2025 9:37 AM EDT EMERGENCY LIVER TXP COME BACK 04/23/2025 9:16 AM EDT TRANSFUSE RED BLOOD CELLS STAT 04/23/2025 9:03 AM EDT TRANSFUSE RED BLOOD CELLS STAT 04/23/2025 8:54 AM EDT XR PORTABLE FEEDING TUBE X-RAY STAT 04/23/2025 8:48 AM EDT XR PORTABLE CHEST STAT 04/23/2025 8:4 7 AM EDT TEG-BYPASS/ECMO/LIVER HN (FACTOR FUNCTION, PLATELET/FIBRIN CLOT STRENGTH W/CLOT BREAKDOWN, HEPARINASE IN ALL CHANNELS) STAT 04/23/2025 8:31 AM EDT CBC Routine 04/23/2025 8:31 AM EDT TEG-BYPASS/ECMO/LIVER HN (FACTOR FUNCTION, PLATELET/FIBRIN CLOT STRENGTH W/CLOT BREAKDOWN, HEPARINASE IN ALL CHANNELS) STAT 04/23/2025 7:45 AM EDT TACROLIMUS LEVEL Timed 04/23/2025 7:45 AM EDT HEMOGLOBIN, BLOOD GAS STAT 04/23/2025 7:45 AM EDT LACTIC ACID, ARTERIAL, WHOLE BLOOD STAT 04/23/2025 7:45 AM EDT BLOOD GAS, ARTERIAL STAT 04/23/2025 7 :45 AM EDT PUSH ENTEROSCOPY Endo Bedside Procedure 04/23/2025 6:05 AM EDT Melena SMALL BOWEL ENTEROSCOPY Routine 04/23/2025 6:01 AM EDT PREPARE RBC, LEUKOREDUCED Routine 04/23/2025 5:36 AM EDT PREPARE FRESH FROZEN PLASMA Routine 04/23/2025 5:33 AM EDT CENTRAL LINE Routine 04/23/2025 5:14 AM EDT INSERT ARTERIAL LINE Routine 04/23/2025 4:53 AM EDT TEG-BYPASS/ECMO/LIVER HN (FACTOR FUNCTION, PLATELET/FIBRIN CLOT STRENGTH W/CLOT BREAKDOWN, HEPARINASE IN ALL CHANNELS) STAT 04/23/2025 4:26 AM EDT HEMATOCRIT, BLOOD GAS STAT 04/23/2025 4:26 AM EDT POTASSIUM, BLOOD GAS STAT 04/23/2025 4:26 AM EDT SODIUM, BLOOD GAS STAT 04/23/2025 4:2 6 AM EDT HEPATIC FUNCTION PANEL STAT 4:26 AM EDT LACTIC ACID STAT 04/23/2025 4:26 AM EDT RENAL FUNCTION PANEL W/EGFR STAT 04/23/2025 4:26 AM EDT CALCIUM FREE, SERUM Routine 04/23/2025 4 :26 AM EDT FREE CALCIUM, WHOLE BLOOD STAT 04/23/2025 4:26 AM EDT HEMOGLOBIN, BLOOD GAS STAT 04/23/2025 4:26 AM EDT LACTIC ACID, ARTERIAL, WHOLE BLOOD STAT 04/23/2025 4:26 AM EDT PROTIME-INR Routine 04/23/2025 4:26 AM EDT CBC STAT 04/23/2025 4:26 AM EDT MAGNESIUM STAT 04/23/2025 4:26 AM EDT BLOOD GAS, ARTERIAL STAT 04/23/2025 4 :26 AM EDT INTUBATION Routine 04/23/2025 3:44 AM EDT XR PORTABLE CHEST STAT 04/23/2025 3:1 3 AM EDT ARTERIAL BLOOD GAS PANEL STAT 04/23/2025 2:54 AM EDT FREE CALCIUM, WHOLE BLOOD STAT 04/23/2025 2:54 AM EDT TEG-BYPASS/ECMO/LIVER HN (FACTOR FUNCTION, PLATELET/FIBRIN CLOT STRENGTH W/CLOT BREAKDOWN, HEPARINASE IN ALL CHANNELS) STAT 04/23/2025 2:23 AM EDT HEPATIC FUNCTION PANEL Routine 2:23 AM EDT LACTIC ACID STAT 04/23/2025 2:23 AM EDT RENAL FUNCTION PANEL W/EGFR Routine 04/23/2025 2:23 AM EDT CALCIUM FREE, SERUM STAT 04/23/2025 2 :23 AM EDT CBC Routine 04/23/2025 2:23 AM EDT MAGNESIUM Routine 04/23/2025 2:23 AM EDT TRANSFUSE RED BLOOD CELLS Routine 04/23/2025 1:22 AM EDT POC GLU MONITORING DEVICE Routine 04/23/2025 12:26 AM EDT ABO/RH Routine 04/23/2025 12:03 AM EDT CBC STAT 04/23/2025 12:03 AM EDT ANTIBODY SCREEN Routine 04/23/2025 12:03 AM EDT LACTIC ACID STAT 04/22/2025 11:04 PM EDT RENAL FUNCTION PANEL W/EGFR STAT 04/22/2025 11:04 PM EDT CBC STAT 04/22/2025 11:04 PM EDT MAGNESIUM STAT 04/22/2025 11:04 PM EDT POC GLU MONITORING DEVICE Routine 04/22/2025 9:12 PM EDT POC GLU MONITORING DEVICE Routine 04/22/2025 4:33 PM EDT POC GLU MONITORING DEVICE Routine 04/22/2025 12:05 PM EDT HEPATIC FUNCTION PANEL Routine 6:06 AM EDT RENAL FUNCTION PANEL W/EGFR Routine 04/22/2025 6:06 AM EDT TACROLIMUS LEVEL Timed 04/22/2025 6:06 AM EDT CBC Routine 04/22/2025 6:06 AM EDT MAGNESIUM Routine 04/22/2025 6:06 AM EDT POC GLU MONITORING DEVICE Routine 04/22/2025 5:58 AM EDT POC GLU MONITORING DEVICE Routine 04/21/2025 11:19 PM EDT POC GLU MONITORING DEVICE Routine 04/21/2025 6:17 PM EDT VAS VENOUS DUPLEX UPPER LEFT STAT 04/21/2025 4:54 PM EDT Generalized edema POC GLU MONITORING DEVICE Routine 04/21/2025 12:52 PM EDT SODIUM, URINE, RANDOM Routine 04/21/2025 12:31 PM EDT PROTEIN, URINE, RANDOM Routine 12:31 PM EDT OSMOLALITY, URINE Routine 04/21/2025 12:31 PM EDT CREATININE, URINE, RANDOM Routine 04/21/2025 12:31 PM EDT US DUPLEX [id number] COMPLETE STAT 04/21/2025 9:47 AM EDT US ABDOMEN LIMITED STAT 04/21/2025 9: 47 AM EDT HEPATIC FUNCTION PANEL Routine 9:00 AM EDT RENAL FUNCTION PANEL W/EGFR Routine 04/21/2025 9:00 AM EDT TACROLIMUS LEVEL Timed 04/21/2025 9:00 AM EDT PROTIME-INR STAT 04/21/2025 9:00 AM EDT CBC Routine 04/21/2025 9:00 AM EDT MAGNESIUM Routine 04/21/2025 9:00 AM EDT INSERT PICC LINE Routine 04/21/2025 8:37 AM EDT POC GLU MONITORING DEVICE Routine 04/21/2025 4:56 AM EDT POC GLU MONITORING DEVICE Routine 04/20/2025 11:27 PM EDT POC GLU MONITORING DEVICE Routine 04/20/2025 6:30 PM EDT HEPATIC FUNCTION PANEL STAT 6:09 PM EDT RENAL FUNCTION PANEL W/EGFR STAT 04/20/2025 6:09 PM EDT MAGNESIUM STAT 04/20/2025 6:09 PM EDT POC GLU MONITORING DEVICE Routine 04/20/2025 12:31 PM EDT TACROLIMUS LEVEL Timed 04/20/2025 8:20 AM EDT POC GLU MONITORING DEVICE Routine 04/20/2025 5:34 AM EDT HEPATIC FUNCTION PANEL STAT 1:33 AM EDT RENAL FUNCTION PANEL W/EGFR STAT 04/20/2025 1:33 AM EDT CALCIUM FREE, SERUM STAT 04/20/2025 1 :33 AM EDT PROTIME-INR STAT 04/20/2025 1:33 AM EDT CBC STAT 04/20/2025 1:33 AM EDT MAGNESIUM STAT 04/20/2025 1:33 AM EDT POC GLU MONITORING DEVICE Routine 04/20/2025 1:26 AM EDT HEPATIC FUNCTION PANEL STAT 5:27 PM EDT RENAL FUNCTION PANEL W/EGFR STAT 04/19/2025 5:27 PM EDT PROTIME-INR STAT 04/19/2025 5:27 PM EDT CBC STAT 04/19/2025 5:27 PM EDT MAGNESIUM STAT 04/19/2025 5:27 PM EDT POC GLU MONITORING DEVICE Routine 04/19/2025 5:25 PM EDT COCCIDIOIDES ANTIBODY REFLEXIVE PANEL Timed 04/19/2025 12:41 PM EDT HEPATIC FUNCTION PANEL STAT 12:41 PM EDT RENAL FUNCTION PANEL W/EGFR STAT 04/19/2025 12:41 PM EDT PROTIME-INR STAT 04/19/2025 12:41 PM EDT CBC STAT 04/19/2025 12:41 PM EDT MAGNESIUM STAT 04/19/2025 12:41 PM EDT POC GLU MONITORING DEVICE Routine 04/19/2025 12:37 PM EDT US DUPLEX [id number] COMPLETE STAT 04/19/2025 11:03 AM EDT US ABDOMEN LIMITED STAT 04/19/2025 11:03 AM EDT LACTIC ACID STAT 04/19/2025 8:37 AM EDT TACROLIMUS LEVEL Timed 04/19/2025 8:37 AM EDT POC GLU MONITORING DEVICE Routine 04/19/2025 8:33 AM EDT HEPATIC FUNCTION PANEL STAT 6:33 AM EDT LACTIC ACID STAT 04/19/2025 6:33 AM EDT RENAL FUNCTION PANEL W/EGFR STAT 04/19/2025 6:33 AM EDT PROTIME-INR STAT 04/19/2025 6:33 AM EDT CBC STAT 04/19/2025 6:33 AM EDT MAGNESIUM STAT 04/19/2025 6:33 AM EDT POC GLU MONITORING DEVICE Routine 04/19/2025 6:24 AM EDT PREPARE PLATELETS, LEUKOREDUCED Routine 04/19/2025 6:16 AM EDT PREPARE CRYOPRECIPITATE Routine 04/19/2025 6:16 AM EDT PREPARE FRESH FROZEN PLASMA Routine 04/19/2025 6:15 AM EDT PREPARE RBC, LEUKOREDUCED Routine 04/19/2025 6:15 AM EDT POC GLU MONITORING DEVICE Routine 04/19/2025 4:25 AM EDT POC GLU MONITORING DEVICE Routine 04/19/2025 4:21 AM EDT XR PORTABLE CHEST STAT 04/19/2025 2:5 0 AM EDT HIGH SENSITIVITY TROPONIN STAT 04/19/2025 2:27 AM EDT LACTIC ACID STAT 04/19/2025 2:27 AM EDT ECG 12-LEAD (MUSE) Routine 04/19/2025 2: 21 AM EDT POC GLU MONITORING DEVICE Routine 04/19/2025 2:17 AM EDT POC GLU MONITORING DEVICE Routine 04/19/2025 12:23 AM EDT HEPATIC FUNCTION PANEL STAT 11:19 PM EDT LACTIC ACID STAT 04/18/2025 11:19 PM EDT RENAL FUNCTION PANEL W/EGFR STAT 04/18/2025 11:19 PM EDT PROTIME-INR STAT 04/18/2025 11:19 PM EDT CBC STAT 04/18/2025 11:19 PM EDT MAGNESIUM STAT 04/18/2025 11:19 PM EDT BLOOD GAS, ARTERIAL STAT 04/18/2025 10:46 PM EDT RENAL FUNCTION PANEL W/EGFR STAT 04/18/2025 10:12 PM EDT MAGNESIUM STAT 04/18/2025 10:12 PM EDT POC GLU MONITORING DEVICE Routine 04/18/2025 10:09 PM EDT XR PORTABLE FEEDING TUBE X-RAY STAT 04/18/2025 9:36 PM EDT LACTIC ACID Routine 04/18/2025 9:28 PM EDT POC GLU MONITORING DEVICE Routine 04/18/2025 9:11 PM EDT XR PORTABLE CHEST STAT 04/18/2025 8:2 6 PM EDT POC GLU MONITORING DEVICE Routine 04/18/2025 8:05 PM EDT PREPARE FRESH FROZEN PLASMA Routine 04/18/2025 7:53 PM EDT Pre-transplant evaluation for chronic liver disease PREPARE RBC, LEUKOREDUCED Routine 04/18/2025 7:53 PM EDT Pre-transplant evaluation for chronic liver disease ECG 12-LEAD (MUSE) Routine 04/18/2025 7: 13 PM EDT TEG-STANDARD GLOBAL HEMOSTASIS (RAPID TEG WITH HEPARIN EFFECT, CONTAINS A BASELINE) STAT 04/18/2025 6:59 PM EDT HEPATIC FUNCTION PANEL STAT 6:59 PM EDT LACTIC ACID STAT 04/18/2025 6:59 PM EDT RENAL FUNCTION PANEL W/EGFR STAT 04/18/2025 6:59 PM EDT CALCIUM FREE, SERUM STAT 04/18/2025 6 :59 PM EDT POC GLU MONITORING DEVICE Routine 04/18/2025 6:59 PM EDT PROTIME-INR STAT 04/18/2025 6:59 PM EDT FIBRINOGEN STAT 04/18/2025 6:59 PM EDT CBC STAT 04/18/2025 6:59 PM EDT MAGNESIUM STAT 04/18/2025 6:59 PM EDT BLOOD GAS, ARTERIAL STAT 04/18/2025 6 :59 PM EDT POC LACTATE Routine 04/18/2025 5:00 PM EDT POC TCO2 Routine 04/18/2025 5:00 PM EDT POC SODIUM Routine 04/18/2025 5:00 PM EDT POC POTASSIUM Routine 04/18/2025 5:00 PM EDT POC PO2 Routine 04/18/2025 5:00 PM EDT POC PCO2 Routine 04/18/2025 5:00 PM EDT POC O2 SAT Routine 04/18/2025 5:00 PM EDT POC HCO3 Routine 04/18/2025 5:00 PM EDT POC CHLORIDE Routine 04/18/2025 5:00 PM EDT POC BASE EXCESS Routine 04/18/2025 5:00 PM EDT POC ANION GAP Routine 04/18/2025 5:00 PM EDT POC SAMPLE TYPE Routine 04/18/2025 5:00 PM EDT POCT PH Routine 04/18/2025 5:00 PM EDT POCT HEMATOCRIT Routine 04/18/2025 5:00 PM EDT POCT CALCIUM, TOTAL Routine 04/18/2025 5 :00 PM EDT POCT GLUCOSE Routine 04/18/2025 5:00 PM EDT POCT HEMOGLOBIN Routine 04/18/2025 5:00 PM EDT POCT INR Routine 04/18/2025 4:54 PM EDT TRANSFUSE CRYOPRECIPITATE Routine 04/18/2025 4:07 PM EDT TRANSFUSE CRYOPRECIPITATE Routine 04/18/2025 4:01 PM EDT POC LACTATE Routine 04/18/2025 4:00 PM EDT POC TCO2 Routine 04/18/2025 4:00 PM EDT POC SODIUM Routine 04/18/2025 4:00 PM EDT POC POTASSIUM Routine 04/18/2025 4:00 PM EDT POC PO2 Routine 04/18/2025 4:00 PM EDT POC PCO2 Routine 04/18/2025 4:00 PM EDT POC O2 SAT Routine 04/18/2025 4:00 PM EDT POC HCO3 Routine 04/18/2025 4:00 PM EDT POC CHLORIDE Routine 04/18/2025 4:00 PM EDT POC BASE EXCESS Routine 04/18/2025 4:00 PM EDT POC ANION GAP Routine 04/18/2025 4:00 PM EDT POC SAMPLE TYPE Routine 04/18/2025 4:00 PM EDT POCT PH Routine 04/18/2025 4:00 PM EDT POCT HEMATOCRIT Routine 04/18/2025 4:00 PM EDT POCT CALCIUM, TOTAL Routine 04/18/2025 4 :00 PM EDT POCT GLUCOSE Routine 04/18/2025 4:00 PM EDT POCT HEMOGLOBIN Routine 04/18/2025 4:00 PM EDT POCT INR Routine 04/18/2025 3:55 PM EDT POC LACTATE Routine 04/18/2025 3:06 PM EDT POC TCO2 Routine 04/18/2025 3:06 PM EDT POC SODIUM Routine 04/18/2025 3:06 PM EDT POC POTASSIUM Routine 04/18/2025 3:06 PM EDT POC PO2 Routine 04/18/2025 3:06 PM EDT POC PCO2 Routine 04/18/2025 3:06 PM EDT POC O2 SAT Routine 04/18/2025 3:06 PM EDT POC HCO3 Routine 04/18/2025 3:06 PM EDT POC CHLORIDE Routine 04/18/2025 3:06 PM EDT POC BASE EXCESS Routine 04/18/2025 3:06 PM EDT POC ANION GAP Routine 04/18/2025 3:06 PM EDT POC SAMPLE TYPE Routine 04/18/2025 3:06 PM EDT POCT PH Routine 04/18/2025 3:06 PM EDT POCT HEMATOCRIT Routine 04/18/2025 3:06 PM EDT POCT CALCIUM, TOTAL Routine 04/18/2025 3 :06 PM EDT POCT GLUCOSE Routine 04/18/2025 3:06 PM EDT POCT HEMOGLOBIN Routine 04/18/2025 3:06 PM EDT POCT INR Routine 04/18/2025 3:01 PM EDT TRANSFUSE FRESH FROZEN PLASMA Routine 04/18/2025 2:40 PM EDT Pre-transplant evaluation for chronic liver disease TRANSFUSE PLATELETS Routine 04/18/2025 2 :37 PM EDT POC LACTATE Routine 04/18/2025 2:10 PM EDT POC TCO2 Routine 04/18/2025 2:10 PM EDT POC SODIUM Routine 04/18/2025 2:10 PM EDT POC POTASSIUM Routine 04/18/2025 2:10 PM EDT POC PO2 Routine 04/18/2025 2:10 PM EDT POC PCO2 Routine 04/18/2025 2:10 PM EDT POC O2 SAT Routine 04/18/2025 2:10 PM EDT POC HCO3 Routine 04/18/2025 2:10 PM EDT POC CHLORIDE Routine 04/18/2025 2:10 PM EDT POC BASE EXCESS Routine 04/18/2025 2:10 PM EDT POC ANION GAP Routine 04/18/2025 2:10 PM EDT POC SAMPLE TYPE Routine 04/18/2025 2:10 PM EDT POCT PH Routine 04/18/2025 2:10 PM EDT POCT HEMATOCRIT Routine 04/18/2025 2:10 PM EDT POCT CALCIUM, TOTAL Routine 04/18/2025 2 :10 PM EDT POCT GLUCOSE Routine 04/18/2025 2:10 PM EDT POCT HEMOGLOBIN Routine 04/18/2025 2:10 PM EDT POCT INR Routine 04/18/2025 2:05 PM EDT TRANSFUSE PLATELETS Routine 04/18/2025 2 :00 PM EDT TEG-BYPASS/ECMO/LIVER HN (FACTOR FUNCTION, PLATELET/FIBRIN CLOT STRENGTH W/CLOT BREAKDOWN, HEPARINASE IN ALL CHANNELS) STAT 04/18/2025 1:52 PM EDT PROTIME-INR STAT 04/18/2025 1:52 PM EDT FIBRINOGEN STAT 04/18/2025 1:52 PM EDT CBC STAT 04/18/2025 1:52 PM EDT POC LACTATE Routine 04/18/2025 1:39 PM EDT POC TCO2 Routine 04/18/2025 1:39 PM EDT POC SODIUM Routine 04/18/2025 1:39 PM EDT POC POTASSIUM Routine 04/18/2025 1:39 PM EDT POC PO2 Routine 04/18/2025 1:39 PM EDT POC PCO2 Routine 04/18/2025 1:39 PM EDT POC O2 SAT Routine 04/18/2025 1:39 PM EDT POC HCO3 Routine 04/18/2025 1:39 PM EDT POC CHLORIDE Routine 04/18/2025 1:39 PM EDT POC BASE EXCESS Routine 04/18/2025 1:39 PM EDT POC ANION GAP Routine 04/18/2025 1:39 PM EDT POC SAMPLE TYPE Routine 04/18/2025 1:39 PM EDT POCT PH Routine 04/18/2025 1:39 PM EDT POCT HEMATOCRIT Routine 04/18/2025 1:39 PM EDT POCT CALCIUM, TOTAL Routine 04/18/2025 1 :39 PM EDT POCT GLUCOSE Routine 04/18/2025 1:39 PM EDT POCT HEMOGLOBIN Routine 04/18/2025 1:39 PM EDT POCT INR Routine 04/18/2025 1:33 PM EDT TRANSFUSE FRESH FROZEN PLASMA Routine 04/18/2025 1:30 PM EDT Pre-transplant evaluation for chronic liver disease TRANSFUSE FRESH FROZEN PLASMA Routine 04/18/2025 1:19 PM EDT Pre-transplant evaluation for chronic liver disease TRANSFUSE RED BLOOD CELLS Routine 04/18/2025 1:19 PM EDT Pre-transplant evaluation for chronic liver disease TRANSFUSE FRESH FROZEN PLASMA Routine 04/18/2025 1:00 PM EDT Pre-transplant evaluation for chronic liver disease POC LACTATE Routine 04/18/2025 12:56 PM EDT POC TCO2 Routine 04/18/2025 12:56 PM EDT POC SODIUM Routine 04/18/2025 12:56 PM EDT POC POTASSIUM Routine 04/18/2025 12:56 PM EDT POC PO2 Routine 04/18/2025 12:56 PM EDT POC PCO2 Routine 04/18/2025 12:56 PM EDT POC O2 SAT Routine 04/18/2025 12:56 PM EDT POC HCO3 Routine 04/18/2025 12:56 PM EDT POC CHLORIDE Routine 04/18/2025 12:56 PM EDT POC BASE EXCESS Routine 04/18/2025 12:56 PM EDT POC ANION GAP Routine 04/18/2025 12:56 PM EDT POC SAMPLE TYPE Routine 04/18/2025 12:56 PM EDT POCT PH Routine 04/18/2025 12:56 PM EDT POCT HEMATOCRIT Routine 04/18/2025 12:56 PM EDT POCT CALCIUM, TOTAL Routine 04/18/2025 12:56 PM EDT POCT GLUCOSE Routine 04/18/2025 12:56 PM EDT POCT HEMOGLOBIN Routine 04/18/2025 12:56 PM EDT POCT INR Routine 04/18/2025 12:51 PM EDT TRANSFUSE RED BLOOD CELLS Routine 04/18/2025 12:27 PM EDT Pre-transplant evaluation for chronic liver disease TRANSFUSE RED BLOOD CELLS Routine 04/18/2025 12:19 PM EDT Pre-transplant evaluation for chronic liver disease POC LACTATE Routine 04/18/2025 12:11 PM EDT POC TCO2 Routine 04/18/2025 12:11 PM EDT POC SODIUM Routine 04/18/2025 12:11 PM EDT POC POTASSIUM Routine 04/18/2025 12:11 PM EDT POC PO2 Routine 04/18/2025 12:11 PM EDT POC PCO2 Routine 04/18/2025 12:11 PM EDT POC O2 SAT Routine 04/18/2025 12:11 PM EDT POC HCO3 Routine 04/18/2025 12:11 PM EDT POC CHLORIDE Routine 04/18/2025 12:11 PM EDT POC BASE EXCESS Routine 04/18/2025 12:11 PM EDT POC ANION GAP Routine 04/18/2025 12:11 PM EDT POC SAMPLE TYPE Routine 04/18/2025 12:11 PM EDT POCT PH Routine 04/18/2025 12:11 PM EDT POCT HEMATOCRIT Routine 04/18/2025 12:11 PM EDT POCT CALCIUM, TOTAL Routine 04/18/2025 12:11 PM EDT POCT GLUCOSE Routine 04/18/2025 12:11 PM EDT POCT HEMOGLOBIN Routine 04/18/2025 12:11 PM EDT POCT INR Routine 04/18/2025 12:05 PM EDT POC LACTATE Routine 04/18/2025 11:16 AM EDT POC TCO2 Routine 04/18/2025 11:16 AM EDT POC SODIUM Routine 04/18/2025 11:16 AM EDT POC POTASSIUM Routine 04/18/2025 11:16 AM EDT POC PO2 Routine 04/18/2025 11:16 AM EDT POC PCO2 Routine 04/18/2025 11:16 AM EDT POC O2 SAT Routine 04/18/2025 11:16 AM EDT POC HCO3 Routine 04/18/2025 11:16 AM EDT POC CHLORIDE Routine 04/18/2025 11:16 AM EDT POC BASE EXCESS Routine 04/18/2025 11:16 AM EDT POC ANION GAP Routine 04/18/2025 11:16 AM EDT POC SAMPLE TYPE Routine 04/18/2025 11:16 AM EDT POCT PH Routine 04/18/2025 11:16 AM EDT POCT HEMATOCRIT Routine 04/18/2025 11:16 AM EDT POCT CALCIUM, TOTAL Routine 04/18/2025 11:16 AM EDT POCT GLUCOSE Routine 04/18/2025 11:16 AM EDT POCT HEMOGLOBIN Routine 04/18/2025 11:16 AM EDT POC LACTATE Routine 04/18/2025 11:13 AM EDT POC TCO2 Routine 04/18/2025 11:13 AM EDT POC SODIUM Routine 04/18/2025 11:13 AM EDT POC POTASSIUM Routine 04/18/2025 11:13 AM EDT POC PO2 Routine 04/18/2025 11:13 AM EDT POC PCO2 Routine 04/18/2025 11:13 AM EDT POC O2 SAT Routine 04/18/2025 11:13 AM EDT POC HCO3 Routine 04/18/2025 11:13 AM EDT POC CHLORIDE Routine 04/18/2025 11:13 AM EDT POC BASE EXCESS Routine 04/18/2025 11:13 AM EDT POC ANION GAP Routine 04/18/2025 11:13 AM EDT POC SAMPLE TYPE Routine 04/18/2025 11:13 AM EDT POCT PH Routine 04/18/2025 11:13 AM EDT POCT HEMATOCRIT Routine 04/18/2025 11:13 AM EDT POCT CALCIUM, TOTAL Routine 04/18/2025 11:13 AM EDT POCT GLUCOSE Routine 04/18/2025 11:13 AM EDT POCT HEMOGLOBIN Routine 04/18/2025 11:13 AM EDT POCT INR Routine 04/18/2025 11:07 AM EDT POC LACTATE Routine 04/18/2025 10:17 AM EDT POC TCO2 Routine 04/18/2025 10:17 AM EDT POC SODIUM Routine 04/18/2025 10:17 AM EDT POC POTASSIUM Routine 04/18/2025 10:17 AM EDT POC PO2 Routine 04/18/2025 10:17 AM EDT POC PCO2 Routine 04/18/2025 10:17 AM EDT POC O2 SAT Routine 04/18/2025 10:17 AM EDT POC HCO3 Routine 04/18/2025 10:17 AM EDT POC CHLORIDE Routine 04/18/2025 10:17 AM EDT POC BASE EXCESS Routine 04/18/2025 10:17 AM EDT POC ANION GAP Routine 04/18/2025 10:17 AM EDT POC SAMPLE TYPE Routine 04/18/2025 10:17 AM EDT POCT PH Routine 04/18/2025 10:17 AM EDT POCT HEMATOCRIT Routine 04/18/2025 10:17 AM EDT POCT CALCIUM, TOTAL Routine 04/18/2025 10:17 AM EDT POCT GLUCOSE Routine 04/18/2025 10:17 AM EDT POCT HEMOGLOBIN Routine 04/18/2025 10:17 AM EDT POCT INR Routine 04/18/2025 10:12 AM EDT POCT INR Routine 04/18/2025 9:19 AM EDT POC LACTATE Routine 04/18/2025 9:17 AM EDT POC TCO2 Routine 04/18/2025 9:17 AM EDT POC SODIUM Routine 04/18/2025 9:17 AM EDT POC POTASSIUM Routine 04/18/2025 9:17 AM EDT POC PO2 Routine 04/18/2025 9:17 AM EDT POC PCO2 Routine 04/18/2025 9:17 AM EDT POC O2 SAT Routine 04/18/2025 9:17 AM EDT POC HCO3 Routine 04/18/2025 9:17 AM EDT POC CHLORIDE Routine 04/18/2025 9:17 AM EDT POC BASE EXCESS Routine 04/18/2025 9:17 AM EDT POC ANION GAP Routine 04/18/2025 9:17 AM EDT POC SAMPLE TYPE Routine 04/18/2025 9:17 AM EDT POCT PH Routine 04/18/2025 9:17 AM EDT POCT HEMATOCRIT Routine 04/18/2025 9:17 AM EDT POCT CALCIUM, TOTAL Routine 04/18/2025 9 :17 AM EDT POCT GLUCOSE Routine 04/18/2025 9:17 AM EDT POCT HEMOGLOBIN Routine 04/18/2025 9:17 AM EDT TRANSPLANT LIVER 04/18/2025 8:17 AM EDT Pre-transplant evaluation for chronic liver disease Special Needs cell saver, liver transplant set, 10 units of RBC & FFP -#LW POC HCG QUALITATIVE, URINE Routine 04/18/2025 6:16 AM EDT TEG-STANDARD GLOBAL HEMOSTASIS (RAPID TEG WITH HEPARIN EFFECT, CONTAINS A BASELINE) Routine 04/18/2025 6:03 AM EDT Pre-transplant evaluation for chronic liver disease VENOUS BLOOD GAS, LINE/SYRINGE Routine 04/18/2025 6:03 AM EDT Pre-transplant evaluation for chronic liver disease HEPATIC FUNCTION PANEL Routine 6:03 AM EDT Pre-transplant evaluation for chronic liver disease RENAL FUNCTION PANEL W/EGFR Routine 04/18/2025 6:03 AM EDT Pre-transplant evaluation for chronic liver disease HEPATITIS C RNA, QUANTITATIVE REFLEX TO GENOTYPING Routine 04/18/2025 6:03 AM EDT Pre-transplant evaluation for chronic liver disease HEPATITIS B CORE ANTIBODY Routine 04/18/2025 6:03 AM EDT Pre-transplant evaluation for chronic liver disease HEPATITIS C ANTIBODY Routine 04/18/2025 6:03 AM EDT Pre-transplant evaluation for chronic liver disease DIFFERENTIAL Routine 04/18/2025 6:03 AM EDT Pre-transplant evaluation for chronic liver disease HIV 1+2 ANTIBODY/ANTIGEN WITH REFLEX Routine 04/18/2025 6:03 AM EDT Pre-transplant evaluation for chronic liver disease HEPATITIS B SURFACE ANTIBODY, QUANTITATIVE Routine 04/18/2025 6:03 AM EDT Pre-transplant evaluation for chronic liver disease HEPATITIS B SURFACE ANTIGEN Routine 04/18/2025 6:03 AM EDT Pre-transplant evaluation for chronic liver disease APTT Routine 04/18/2025 6:03 AM EDT Pre-transplant evaluation for chronic liver disease PROTIME-INR Routine 04/18/2025 6:03 AM EDT Pre-transplant evaluation for chronic liver disease FIBRINOGEN Routine 04/18/2025 6:03 AM EDT Pre-transplant evaluation for chronic liver disease CBC Routine 04/18/2025 6:03 AM EDT Pre-transplant evaluation for chronic liver disease HCG, QUANTITATIVE, Routine 04/18/2025 6:03 AM EDT Pre-transplant evaluation for chronic liver disease MAGNESIUM Routine 04/18/2025 6:03 AM EDT Pre-transplant evaluation for chronic liver disease SURGICAL PATHOLOGY EXAM Routine 04/18/2025 12:00 AM EDT documented in this encounter Results * Perfusion Record - scan (05/21/2025 4:02 PM EST) us Scanning [employer] SCAN DOCS - NO RESULTS Final Res ult * EKG - scan (05/04/2025 7:57 AM EST) us Scanning [employer] SCAN DOCS - NO RESULTS Final Res ult * Blood Transfusion - scan (05/04/2025 7:49 AM EST) us Scanning [employer] SCAN DOCS - NO RESULTS Final Res ult * Prepare RBC, leukoreduced, 1 Units (05/04/2025 6:15 AM EST) Product Code [id number] HCLL Unit Number [id number] HCLL Dispense Status Presumed Transfused_PT HCLL Blood Expiration Date [id number] HCLL Coding System [id number] HCLL Blood Bank Product us Gloria Chen MD BLOOD BANK PRODUCT ORDERABLES Fi nal Result Performing Organization Address City/[facility]/ZIP Co de Phone Number HCLL * Transfuse RBC Transfusion Rate: Per dept routine (05/03/2025 2:58 PM EST) us Gloria Chen MD NURSING TREATMENT ORDERABLES - B LOOD ADMIN Final Result Performing Organization Address City/[facility]/ZIP Co de Phone Number EXTERNAL * Transfuse RBC Transfusion Rate: Per dept routine, 1 Units (05/03/2025 2:58 PM EST) us Gloria Chen MD NURSING TREATMENT ORDERABLES - B LOOD ADMIN Final Result Performing Organization Address City/[facility]/ZIP Co de Phone Number EXTERNAL * (ABNORMAL) POC Glucose Monitoring Device (05/03/2025 12:17 PM EST) POC Glucose Monitoring Device 176(H) 70 - 100 mg/dL 05/03/2025 12:18 PM EST [facility] Blood 05/03/2025 12:1 7 PM EST 05/03/2025 12:18 PM EST us Ludin Jose MD POINT OF CARE TEST ORDERABLES Fi nal Result [facility] [address] * Antibody Screen (05/03/2025 9:05 AM EST) Antibody Screen Negative 05/03/2025 10:12 AM EST [facility] Blood 05/03/2025 9:05 AM EST 05/03/2025 9:16 AM EST Narrative [facility] - 05/03/2025 10:29 AM EST Testing performed by [facility] Transfusion Service us Gloria Chen MD BLOOD BANK TEST ORDERABLES Final Result [facility] [address] [place] [facility]. [address] * ABO/Rh (05/03/2025 9:05 AM EST) ABO Grouping O 05/03/2025 9:58 AM EST [facility] Rh Type Positive 05/03/2025 9:58 AM EST [facility] Blood 05/03/2025 9:05 AM EST 05/03/2025 9:16 AM EST us Gloria Chen MD BLOOD BANK TEST ORDERABLES Final Result [facility] [address] [facility]. [address] * POC Glucose Monitoring Device (05/03/2025 7:52 AM EST) POC Glucose Monitoring Device 99 70 - 100 mg/dL 05/03/2025 7:53 AM EST [facility] Blood 05/03/2025 7:52 AM EST 05/03/2025 7:53 AM EST us Ludin Jose MD POINT OF CARE TEST ORDERABLES Fi nal Result [facility] [address] [facility]. [address] * (ABNORMAL) Renal Function Panel w/EGFR (05/03/2025 5:46 AM EST) Sodium 135 133 - 146 mmol/L 05/03/2025 6:38 AM [facility] Potassium 4.3 3.5 - 5.3 mmol/L 05/03/2025 6:38 AM [facility] Chloride 103 98 - 110 mmol/L 05/03/2025 6:38 AM [facility] CO2 25 21 - 33 mmol/L 05/03/2025 6:38 AM [facility] Comment:High lactate dehydro genase concentrations in patient samples may cause falsely increased bicarbonate results. If markedly elevated LDH is observed or suspected, please assess results in conjunction with patient`s clinical presentation. In cases of discrepant results, consider evaluating CO2 in with a blood gas order. Anion Gap 7 3 - 16 mmol/L 05/03/2025 6:38 AM [facility] BUN 37(H) 7 - 25 mg/dL 05/03/2025 6:38 AM [facility] Creatinine 1.16 0.60 - 1.30 mg/dL 05/03/2025 6:38 AM [facility] Glucose 100 70 - 100 mg/dL 05/03/2025 6:38 AM [facility] Calcium 8.3(L) 8.6 - 10.3 mg/dL 05/03/2025 6:38 AM [facility] Phosphorus 2.8 2.1 - 4.7 mg/dL 05/03/2025 6:38 AM [facility] Albumin 3.5 3.5 - 5.7 g/dL 05/03/2025 6:38 AM [facility] Osmolality, Calculated 289 278 - 305 mOsm/kg 05/03/2025 6:38 AM [facility] EGFR 63 05/03/2025 6:38 AM [facility] Comment:As of 2021, the estimated [...] Disease. Am J Kidney Dis. 2020. Plasma 05/03/2025 5:46 AM EST 05/03/2025 6:11 AM EST Raya CRUZ LAB BLOOD ORDERABLES Final Re sult Performing Organization Address City/[facility]/ZIP Co de Phone Number [facility] [address] [facility]. [address] * Magnesium (05/03/2025 5:46 AM EST) Magnesium 1.9 1.5 - 2.5 mg/dL 05/03/2025 6:38 AM EST [facility] Plasma 05/03/2025 5:46 AM EST 05/03/2025 6:11 AM EST Raya CRUZ LAB BLOOD ORDERABLES Final Re sult Performing Organization Address [facility] Co de Phone Number [facility] [address] [facility]. [address] * (ABNORMAL) Hepatic Function Panel (05/03/2025 5:46 AM EST) Total Bilirubin 2.4(H) 0.0 - 1.5 mg/dL 05/03/2025 6:38 AM EST [facility] Bilirubin, Direct 1.31(H) 0.00 - 0.40 mg/dL 05/03/2025 6:38 AM EST [facility] AST 54(H) 13 - 39 U/L 05/03/2025 6:38 AM EST [facility] ALT 108(H) 7 - 52 U/L 05/03/2025 6:38 AM EST [facility] Alkaline Phosphatase 849(H) 36 - 125 U/L 05/03/2025 6:38 AM EST [facility] Total Protein 4.7(L) 6.4 - 8.9 g/dL 05/03/2025 6:38 AM EST [facility] Albumin 3.5 3.5 - 5.7 g/dL 05/03/2025 6:38 AM EST [facility] Bilirubin, Indirect 1.09 0.00 - 1.10 mg/dL 05/03/2025 6:38 AM EST [facility] Plasma 05/03/2025 5:46 AM EST 05/03/2025 6:11 AM EST us Raya CRUZ LAB BLOOD ORDERABLES Final Re sult [facility] [address] [place] [address], [facility] * (ABNORMAL) CBC (05/03/2025 5:46 AM EST) WBC 5.4 3.8 - 10.8 10E3/uL 05/03/2025 6:24 AM EST [facility] RBC 2.26(L) 3.80 - 5.10 10E6/uL 05/03/2025 6:24 AM EST [facility] Hemoglobin 7.1(L) 11.7 - 15.5 g/dL 05/03/2025 6:24 AM [facility] Hematocrit 20.9(L) 35.0 - 45.0 % 05/03/2025 6:24 AM [facility] MCV 92.3 80.0 - 100.0 fL 05/03/2025 6:24 AM EST [facility] MCH 31.3 27.0 - 33.0 pg 05/03/2025 6:24 AM EST [facility] MCHC 33.9 32.0 - 36.0 g/dL 05/03/2025 6:24 AM EST [facility] RDW 21.0(H) 11.0 - 15.0 % 05/03/2025 6:24 AM [facility] Platelets 147 140 - 400 10E3/uL 05/03/2025 6:24 AM EST [facility] MPV 11.1 7.5 - 11.5 fL 05/03/2025 6:24 AM EST [facility] Whole Blood 05/03/2025 5:46 AM EST 05/03/2025 6:11 AM EST Raya CRUZ LAB BLOOD ORDERABLES Final Re sult Performing Organization Address City/[facility]/ZIP Co de Phone Number [facility] [address] [facility]. [address] * Tacrolimus level (05/03/2025 5:46 AM EST) Pathologist [facility] Tacrolimus (LC-MS) 7.2 3.0 - 15.0 ng/mL 05/03/2025 10:24 AM EST [facility] Comment:Performed via liquid chromatography tandem mass spectrometry. Detection limit: 1 ng/mL. Individual target concentrations may vary due to target organ and time after transplant. This test has been developed and its performance characteristics determined by [facility] which is certified under the Clinical Laboratory Improvement Amendment of 1988 (CLIA-88) to perform high complexity testing. The test has not been cleared or approved by the US Food and Drug Administration (FDA). The FDA has determined that such clearance is not necessary. The test should be used for clinical purposes and is not regarded as investigational. Whole Blood 05/03/2025 5:46 AM EST 05/03/2025 6:11 AM EST Gloria Chen MD LAB BLOOD ORDERABLES Final Resul t Performing Organization Address [facility] Co de Phone Number [facility] [address] [facility]. [address] * (ABNORMAL) POC Glucose Monitoring Device (05/02/2025 9:09 PM EST) POC Glucose Monitoring Device 138(H) 70 - 100 mg/dL 05/02/2025 9:10 PM EST [facility] Blood 05/02/2025 9:09 PM EST 05/02/2025 9:09 PM EST Ludin Jose MD POINT OF CARE TEST ORDERABLES Fi nal Result Performing Organization Address City/[facility]/ZIP Co de Phone Number [facility] [address] [facility]. [address] * (ABNORMAL) POC Glucose Monitoring Device (05/02/2025 5:02 PM EST) POC Glucose Monitoring Device 184(H) 70 - 100 mg/dL 05/02/2025 5:03 PM EST [facility] Blood 05/02/2025 5:02 PM EST 05/02/2025 5:03 PM EST us Ludin Jose MD POINT OF CARE TEST ORDERABLES Fi nal Result [facility] [address] [facility]. [address] * POC Glucose Monitoring Device (05/02/2025 10:52 AM EST) POC Glucose Monitoring Device 100 70 - 100 mg/dL 05/02/2025 10:53 AM EST [facility] Blood 05/02/2025 10:5 2 AM EST 05/02/2025 10:52 AM EST us Ludin Jose MD POINT OF CARE TEST ORDERABLES Fi nal Result [facility] [address] [place] [address]. [address] * POC Glucose Monitoring Device (05/02/2025 5:58 AM EST) POC Glucose Monitoring Device 85 70 - 100 mg/dL 05/02/2025 5:58 AM EST [facility] Blood 05/02/2025 5:58 AM EST 05/02/2025 5:58 AM EST us Ludin Jose MD POINT OF CARE TEST ORDERABLES Fi nal Result [facility] [address] [place] [address]. [address] * (ABNORMAL) Renal Function Panel w/EGFR (05/02/2025 5:34 AM EST) Sodium 135 133 - 146 mmol/L 05/02/2025 6:11 AM [facility] Potassium 4.1 3.5 - 5.3 mmol/L 05/02/2025 6:11 AM [facility] Chloride 103 98 - 110 mmol/L 05/02/2025 6:11 AM [facility] CO2 26 21 - 33 mmol/L 05/02/2025 6:11 AM [facility] Comment:High lactate dehydro genase concentrations in patient samples may cause falsely increased bicarbonate results. If markedly elevated LDH is observed or suspected, please assess results in conjunction with patient`s clinical presentation. In cases of discrepant results, consider evaluating CO2 in with a blood gas order. Anion Gap 6 3 - 16 mmol/L 05/02/2025 6:11 AM [facility] BUN 26(H) 7 - 25 mg/dL 05/02/2025 6:11 AM [facility] Creatinine 0.99 0.60 - 1.30 mg/dL 05/02/2025 6:11 AM [facility] Glucose 79 70 - 100 mg/dL 05/02/2025 6:11 AM [facility] Calcium 8.3(L) 8.6 - 10.3 mg/dL 05/02/2025 6:11 AM [facility] Phosphorus 3.0 2.1 - 4.7 mg/dL 05/02/2025 6:11 AM [facility] Albumin 3.3(L) 3.5 - 5.7 g/dL 05/02/2025 6:11 AM [facility] Osmolality, Calculated 284 278 - 305 mOsm/kg 05/02/2025 6:11 AM [facility] EGFR 76 05/02/2025 6:11 AM [facility] Comment:As of 2021, the estimated [...] >90mL/min/1.73m2. Reference: Usama C, Hernandez M, Chato ROBERTO, Suzy NEELY, Jyoti [place], Nas [place], et al. A Unifying Approach for GFR Estimation: Recommendations of the NKF-ASN Task Force on Reassessing the inclusion of Race in Diagnosing Kidney Disease. Am J Kidney Dis. 2020. Plasma 05/02/2025 5:34 AM EST 05/02/2025 5:42 AM EST Raya CRUZ LAB BLOOD ORDERABLES Final Re sult [facility] [address] [facility]. [address] * Magnesium (05/02/2025 5:34 AM EST) Magnesium 1.8 1.5 - 2.5 mg/dL 05/02/2025 6:11 AM EST [facility] Plasma 05/02/2025 5:34 AM EST 05/02/2025 5:42 AM EST Raya CRUZ LAB BLOOD ORDERABLES Final Re sult Performing Organization Address City/[facility]/ZIP Co de Phone Number [facility] [address] * (ABNORMAL) Hepatic Function Panel (05/02/2025 5:34 AM EST) Total Bilirubin 3.2(H) 0.0 - 1.5 mg/dL 05/02/2025 6:11 AM EST [facility] Bilirubin, Direct 2.02(H) 0.00 - 0.40 mg/dL 05/02/2025 6:11 AM EST [facility] AST 94(H) 13 - 39 U/L 05/02/2025 6:11 AM EST [facility] ALT 135(H) 7 - 52 U/L 05/02/2025 6:11 AM EST [facility] Alkaline Phosphatase 869(H) 36 - 125 U/L 05/02/2025 6:11 AM EST [facility] Total Protein 4.5(L) 6.4 - 8.9 g/dL 05/02/2025 6:11 AM EST [facility] Albumin 3.3(L) 3.5 - 5.7 g/dL 05/02/2025 6:11 AM EST [facility] Bilirubin, Indirect 1.18(H) 0.00 - 1.10 mg/dL 05/02/2025 6:11 AM EST [facility] Plasma 05/02/2025 5:34 AM EST 05/02/2025 5:42 AM EST Raya CRUZ LAB BLOOD ORDERABLES Final Re sult [facility] [address] [place] [address], [facility] * (ABNORMAL) CBC (05/02/2025 5:34 AM EST) WBC 5.8 3.8 - 10.8 10E3/uL 05/02/2025 5:56 AM [facility] RBC 2.26(L) 3.80 - 5.10 10E6/uL 05/02/2025 5:56 AM [facility] Hemoglobin 7.3(L) 11.7 - 15.5 g/dL 05/02/2025 5:56 AM [facility] Hematocrit 20.8(L) 35.0 - 45.0 % 05/02/2025 5:56 AM [facility] MCV 92.0 80.0 - 100.0 fL 05/02/2025 5:56 AM [facility] MCH 32.1 27.0 - 33.0 pg 05/02/2025 5:56 AM [facility] [facility] MCHC 34.9 32.0 - 36.0 g/dL 05/02/2025 5:56 AM [facility] RDW 20.6(H) 11.0 - 15.0 % 05/02/2025 5:56 AM [facility] Platelets 109(L) 140 - 400 10E3/uL 05/02/2025 5:56 AM [facility] MPV 10.8 7.5 - 11.5 fL 05/02/2025 5:56 AM [facility] Whole Blood 05/02/2025 5:34 AM EST 05/02/2025 5:42 AM EST Raya CRUZ LAB BLOOD ORDERABLES Final Re sult Performing Organization Address [facility]/ZIP Co de Phone Number [facility] [address] * (ABNORMAL) Triglycerides (05/02/2025 5:34 AM EST) Triglycerides 254(H) 10 - 149 mg/dL 05/02/2025 6:11 AM EST [facility] Plasma 05/02/2025 5:34 AM EST 05/02/2025 5:42 AM EST Gloria Chen MD LAB BLOOD ORDERABLES Final Resul t Performing Organization Address [facility] de Phone Number [facility] [address] [facility]. [address] * Tacrolimus level (05/02/2025 5:34 AM EST) Tacrolimus (LC-MS) 7.9 3.0 - 15.0 ng/mL 05/02/2025 9:12 AM EST [facility] Comment:Performed via liquid chromatography tandem mass spectrometry. Detection limit: 1 ng/mL. Individual target concentrations may vary due to target organ and time after transplant. This test has been developed and its performance characteristics determined by [facility] which is certified under the Clinical Laboratory Improvement Amendment of 1988 (CLIA-88) to perform high complexity testing. The test has not been cleared or approved by the US Food and Drug Administration (FDA). The FDA has determined that such clearance is not necessary. The test should be used for clinical purposes and is not regarded as investigational. Whole Blood 05/02/2025 5:34 AM EST 05/02/2025 5:42 AM EST Gloria Chen MD LAB BLOOD ORDERABLES Final Resul t Performing Organization Address [facility] Co de Phone Number [facility] [address] [facility]. [address] * (ABNORMAL) POC Glucose Monitoring Device (05/01/2025 11:58 PM EST) POC Glucose Monitoring Device 114(H) 70 - 100 mg/dL 05/01/2025 11:58 PM EST [facility] Blood 05/01/2025 11:5 8 PM EST 05/01/2025 11:58 PM EST us Ludin Jose MD POINT OF CARE TEST ORDERABLES Fi nal Result [facility] [address] * MRI Abdomen W and WO contrast (05/01/2025 11:40 PM EST) Anatomical Region Laterality Modality Abdomen Magnetic Resonan ce 05/01/2025 10:2 8 PM EST Impressions 05/02/2025 9:24 AM EST IMPRESSION: Right lobe liver transplant. No evidence of biliary ductal dilation. Signal loss in the right hepatic vein adjacent to the inferior vena cava which may be artifactual in nature versus a filling defect. Report Verified by: Veronique Dick MD at 05/02/2025 9:24 AM EST Narrative 05/02/2025 9:24 AM EST EXAM: MRI ABDOMEN W AND WO CONTRAST INDICATION: concern for stricture, rising LFTs DATE: 05/01/2025 10:28 PM EST COMPARISON: Ultrasound and CT dated 04/29/2025 TECHNIQUE: Multisequence MR evaluation of the abdomen was performed prior to and following the intravenous administration of 6.5 mL of Gadavist. 3-D MRCP images were acquired through the liver in the axial and coronal planes. FINDINGS: There is a small right pleural effusion. Right lower lobe atelectasis is evident. Bandlike opacity in the left lower lobe is also consistent with atelectasis. The right lobe liver transplant is mildly heterogeneous in T2 signal with mild increased signal medially in segment 8/5. The background hepatic signal is otherwise normal. There is no evidence of intrahepatic biliary ductal dilation. The intrahepatic bile ducts are diminutive and not well seen. There are also partially obscured by periportal edema. Following contrast administration, the liver is mildly heterogeneous in enhancement corresponding to the T2 signal. Due to contrast bolus timing, the hepatic artery is better seen on the recent CT. The arteries followed to the denita hepatis. The portal vein is patent. In the right hepatic vein, centrally adjacent to the inferior vena cava on the postcontrast images, there is signal loss. It is unclear if this is artifactual due to adjacent clips and dephasing or represents a true filling defect. The hepatic veins otherwise opacified. The vein graft along the cut surface of the transplant is patent. The spleen is enlarged measuring 14.4 cm in craniocaudal dimension. The spleen is normal in enhancement. The pancreas appears normal. There is no evidence of pancreatic duct dilation. The adrenal glands are normal. The kidneys are symmetric in enhancement. There is a 7 mm left renal cyst. There is no evidence of collecting system dilation. There is no evidence of retroperitoneal adenopathy. The aorta is normal in caliber. The inferior vena cava is patent. Hepatic vasculature is as noted above. Paraesophageal varices are noted. The GI tract is normal in caliber. There is a large stool burden. There is trace perihepatic fluid. There is a perihepatic surgical drain. The visualized bone marrow signal is normal. Procedure Note Veronique Dick MD - 05/02/2025 EXAM: MRI ABDOMEN W AND WO CONTRAST INDICATION: concern for stricture, rising LFTs DATE: 05/01/2025 10:28 PM EST COMPARISON: Ultrasound and CT dated 04/29/2025 TECHNIQUE: Multisequence MR evaluation of the abdomen was performed priorto and following the intravenous administration of 6.5 mL of Gadavist. 3-DMRCP images were acquired through the liver in the axial and coronalplanes. FINDINGS: There is a small right pleural effusion. Right lower lobe atelectasis isevident. Bandlike opacity in the left lower lobe is also consistent withatelectasis. The right lobe liver transplant is mildly heterogeneous in T2 signal withmild increased signal medially in segment 8/5. The background hepaticsignal is otherwise normal. There is no evidence of intrahepatic biliaryductal dilation. The intrahepatic bile ducts are diminutive and not wellseen. There are also partially obscured by periportal edema. Following contrast administration, the liver is mildly heterogeneous inenhancement corresponding to the T2 signal. Due to contrast bolus timing,the hepatic artery is better seen on the recent CT. The arteries followedto the denita hepatis. The portal vein is patent. In the right hepaticvein, centrally adjacent to the inferior vena cava on the postcontrastimages, there is signal loss. It is unclear if this is artifactual due toadjacent clips and dephasing or represents a true filling defect. Thehepatic veins otherwise opacified. The vein graft along the cut surface ofthe transplant is patent. The spleen is enlarged measuring 14.4 cm in craniocaudal dimension. Thespleen is normal in enhancement. The pancreas appears normal. There is no evidence of pancreatic ductdilation. The adrenal glands are normal. The kidneys are symmetric in enhancement. There is a 7 mm left renal cyst.There is no evidence of collecting system dilation. There is no evidence of retroperitoneal adenopathy. The aorta is normal in caliber. The inferior vena cava is patent. Hepaticvasculature is as noted above. Paraesophageal varices are noted. The GI tract is normal in caliber. There is a large stool burden. There is trace perihepatic fluid. There is a perihepatic surgical drain. The visualized bone marrow signal is normal. IMPRESSION: Right lobe liver transplant. No evidence of biliary ductal dilation. Signal loss in the right hepatic vein adjacent to the inferior vena cavawhich may be artifactual in nature versus a filling defect. Report Verified by: Veronique Dick MD at 05/02/2025 9:24 AM EST Precious Jhaveri MD IMG MRI ORDERABLES Fin al Result * (ABNORMAL) POC Glucose Monitoring Device (05/01/2025 11:14 AM EST) [facility] POC Glucose Monitoring Device 110(H) 70 - 100 mg/dL 05/01/2025 11:14 AM EST [facility] Blood 05/01/2025 11:1 4 AM EST 05/01/2025 11:14 AM EST Ludin Jose MD POINT OF CARE TEST ORDERABLES Fi nal Result [facility] [address] * Protime-INR, STAT (05/01/2025 10:21 AM EST) Protime 13.8 12.1 - 15.1 seconds 05/01/2025 11:14 AM EST [facility] INR 1.0 0.9 - 1.1 05/01/2025 11:14 AM EST [facility] Comment: RECOMMENDED THERAPEUTIC RANGES USING INR : Stable oral anticoagulant therapy: 2.0 - 3.0 Mechanical prosthetic heart valve: 2.5 - 3.5 Recurrent acute myocardial infarction: 2.5 - 3.5 Plasma 05/01/2025 10:2 1 AM EST 05/01/2025 10:29 AM EST Shannon Johns MD LAB BLOOD ORDERABLES Final Res ult Performing Organization Address City/[facility]/ZIP Co de Phone Number [facility] [address] * POC Glucose Monitoring Device (05/01/2025 7:38 AM EST) POC Glucose Monitoring Device 100 70 - 100 mg/dL 05/01/2025 7:38 AM EST [facility] Blood 05/01/2025 7:38 AM EST 05/01/2025 7:38 AM EST Ludin Jose MD POINT OF CARE TEST ORDERABLES Fi nal Result [facility] [address] * (ABNORMAL) Renal Function Panel w/EGFR (05/01/2025 6:09 AM EST) Sodium 136 133 - 146 mmol/L 05/01/2025 7:20 AM EST [facility] Potassium 4.1 3.5 - 5.3 mmol/L 05/01/2025 7:20 AM EST [facility] Chloride 104 98 - 110 mmol/L 05/01/2025 7:20 AM EST [facility] CO2 25 21 - 33 mmol/L 05/01/2025 7:20 AM EST [facility] Comment:High lactate dehydro genase concentrations in patient samples may cause falsely increased bicarbonate results. If markedly elevated LDH is observed or suspected, please assess results in conjunction with patient`s clinical presentation. In cases of discrepant results, consider evaluating CO2 in with a blood gas order. Anion Gap 7 3 - 16 mmol/L 05/01/2025 7:20 AM EST [facility] BUN 17 7 - 25 mg/dL 05/01/2025 7:20 AM [facility] Creatinine 0.79 0.60 - 1.30 mg/dL 05/01/2025 7:20 AM [facility] Glucose 85 70 - 100 mg/dL 05/01/2025 7:20 AM [facility] Calcium 8.1(L) 8.6 - 10.3 mg/dL 05/01/2025 7:20 AM [facility] Phosphorus 2.7 2.1 - 4.7 mg/dL 05/01/2025 7:20 AM [facility] Albumin 3.3(L) 3.5 - 5.7 g/dL 05/01/2025 7:20 AM [facility] Osmolality, Calculated 283 278 - 305 mOsm/kg 05/01/2025 7:20 AM [facility] EGFR >90 05/01/2025 7:20 AM [facility] Comment: As of 2021, the [...] renal disease. For additional information: www.[email or web address].org Plasma 05/01/2025 6:09 AM EST 05/01/2025 6:30 AM EST Raya CRUZ LAB BLOOD ORDERABLES Final Re sult Performing Organization Address [facility]/ZIP Co de Phone Number [facility] [address] [facility]. [address] * Magnesium (05/01/2025 6:09 AM EST) Magnesium 1.7 1.5 - 2.5 mg/dL 05/01/2025 7:20 AM EST [facility] Plasma 05/01/2025 6:09 AM EST 05/01/2025 6:30 AM EST Raya CRUZ LAB BLOOD ORDERABLES Final Re sult Performing Organization Address [facility] de Phone Number [facility] [address] * (ABNORMAL) Hepatic Function Panel (05/01/2025 6:09 AM EST) Total Bilirubin 3.5(H) 0.0 - 1.5 mg/dL 05/01/2025 7:20 AM EST [facility] Bilirubin, Direct 2.21(H) 0.00 - 0.40 mg/dL 05/01/2025 7:20 AM EST [facility] AST 113(H) 13 - 39 U/L 05/01/2025 7:20 AM EST [facility] ALT 140(H) 7 - 52 U/L 05/01/2025 7:20 AM EST [facility] Alkaline Phosphatase 839(H) 36 - 125 U/L 05/01/2025 7:20 AM EST [facility] Total Protein 4.5(L) 6.4 - 8.9 g/dL 05/01/2025 7:20 AM EST [facility] Albumin 3.3(L) 3.5 - 5.7 g/dL 05/01/2025 7:20 AM EST [facility] Bilirubin, Indirect 1.29(H) 0.00 - 1.10 mg/dL 05/01/2025 7:20 AM EST [facility] Plasma 05/01/2025 6:09 AM EST 05/01/2025 6:30 AM EST Raya CRUZ LAB BLOOD ORDERABLES Final Re sult [facility] [address] * (ABNORMAL) CBC (05/01/2025 6:09 AM EST) WBC 7.5 3.8 - 10.8 10E3/uL 05/01/2025 6:51 AM EST [facility] RBC 2.55(L) 3.80 - 5.10 10E6/uL 05/01/2025 6:51 AM [facility] Hemoglobin 8.0(L) 11.7 - 15.5 g/dL 05/01/2025 6:51 AM [facility] Hematocrit 23.4(L) 35.0 - 45.0 % 05/01/2025 6:51 AM [facility] MCV 91.5 80.0 - 100.0 fL 05/01/2025 6:51 AM [facility] MCH 31.2 27.0 - 33.0 pg 05/01/2025 6:51 AM [facility] MCHC 34.1 32.0 - 36.0 g/dL 05/01/2025 6:51 AM [facility] RDW 21.5(H) 11.0 - 15.0 % 05/01/2025 6:51 AM [facility] Platelets 102(L) 140 - 400 10E3/uL 05/01/2025 6:51 AM [facility] MPV 10.6 7.5 - 11.5 fL 05/01/2025 6:51 AM [facility] Whole Blood 05/01/2025 6:09 AM EST 05/01/2025 6:30 AM EST Raya CRUZ LAB BLOOD ORDERABLES Final Re sult Performing Organization Address [facility] Co de Phone Number [facility] [address] * Tacrolimus level (05/01/2025 6:09 AM EST) Pathologist [facility] Tacrolimus (LC-MS) 6.9 3.0 - 15.0 ng/mL 05/01/2025 3:08 PM EST [facility] Comment:Performed via liquid chromatography tandem mass spectrometry. Detection limit: 1 ng/mL. Individual target concentrations may vary due to target organ and time after transplant. This test has been developed and its performance characteristics determined by [facility] which is certified under the Clinical Laboratory Improvement Amendment of 1988 (CLIA-88) to perform high complexity testing. The test has not been cleared or approved by the US Food and Drug Administration (FDA). The FDA has determined that such clearance is not necessary. The test should be used for clinical purposes and is not regarded as investigational. Whole Blood 05/01/2025 6:09 AM EST 05/01/2025 6:30 AM EST Gloria Chen MD LAB BLOOD ORDERABLES Final Resul t Performing Organization Address [facility] Co de Phone Number [facility] [address] [facility]. [address] * (ABNORMAL) POC Glucose Monitoring Device (05/01/2025 12:02 AM EST) [facility] POC Glucose Monitoring Device 168(H) 70 - 100 mg/dL 05/01/2025 12:03 AM EST [facility] Blood 05/01/2025 12:0 2 AM EST 05/01/2025 12:03 AM EST Ludin Jose MD POINT OF CARE TEST ORDERABLES Fi nal Result Performing Organization Address [facility] Co de Phone Number [facility] [address] [facility]. [address] * (ABNORMAL) POC Glucose Monitoring Device (04/30/2025 4:59 PM EST) POC Glucose Monitoring Device 191(H) 70 - 100 mg/dL 04/30/2025 5:02 PM EST [facility] Blood 04/30/2025 4:59 PM EST 04/30/2025 5:01 PM EST us Ludin Jose MD POINT OF CARE TEST ORDERABLES Fi nal Result Performing Organization Address City/[facility]/ZIP Co de Phone Number [facility] [address] [place] [address]. [address] * (ABNORMAL) POC Glucose Monitoring Device (04/30/2025 3:47 PM EST) POC Glucose Monitoring Device 158(H) 70 - 100 mg/dL 04/30/2025 3:47 PM EST [facility] Blood 04/30/2025 3:47 PM EST 04/30/2025 3:47 PM EST us Ludin Jose MD POINT OF CARE TEST ORDERABLES Fi nal Result Performing Organization Address [facility] Co de Phone Number [address] * (ABNORMAL) POC Glucose Monitoring Device (04/30/2025 12:08 PM EST) POC Glucose Monitoring Device 121(H) 70 - 100 mg/dL 04/30/2025 12:09 PM EST [facility] Blood 04/30/2025 12:0 8 PM EST 04/30/2025 12:09 PM EST us Ludin Jose MD POINT OF CARE TEST ORDERABLES Fi nal Result Performing Organization Address City/[facility] Co de Phone Number [address] * POC Glucose Monitoring Device (04/30/2025 8:44 AM EST) POC Glucose Monitoring Device 98 70 - 100 mg/dL 04/30/2025 8:45 AM EST [facility] Blood 04/30/2025 8:44 AM EST 04/30/2025 8:44 AM EST us Ludin Jose MD POINT OF CARE TEST ORDERABLES Fi nal Result [facility] [address] [place] [id number], [facility] * (ABNORMAL) Renal Function Panel w/EGFR (04/30/2025 5:12 AM EST) Sodium 136 133 - 146 mmol/L 04/30/2025 6:36 AM EST [facility] Potassium 3.5 3.5 - 5.3 mmol/L 04/30/2025 6:36 AM EST [facility] Chloride 105 98 - 110 mmol/L 04/30/2025 6:36 AM [facility] CO2 23 21 - 33 mmol/L 04/30/2025 6:36 AM [facility] Comment:High lactate dehydro genase concentrations in patient samples may cause falsely increased bicarbonate results. If markedly elevated LDH is observed or suspected, please assess results in conjunction with patient`s clinical presentation. In cases of discrepant results, consider evaluating CO2 in with a blood gas order. Anion Gap 8 3 - 16 mmol/L 04/30/2025 6:36 AM EST [facility] BUN 18 7 - 25 mg/dL 04/30/2025 6:36 AM EST [facility] Creatinine 0.87 0.60 - 1.30 mg/dL 04/30/2025 6:36 AM [facility] Glucose 106(H) 70 - 100 mg/dL 04/30/2025 6:36 AM EST [facility] Calcium 8.0(L) 8.6 - 10.3 mg/dL 04/30/2025 6:36 AM [facility] Phosphorus 2.2 2.1 - 4.7 mg/dL 04/30/2025 6:36 AM EST [facility] Albumin 3.2(L) 3.5 - 5.7 g/dL 04/30/2025 6:36 AM [facility] Osmolality, Calculated 284 278 - 305 mOsm/kg 04/30/2025 6:36 AM EST [facility] EGFR 89 04/30/2025 6:36 AM [facility] Comment:As of 2021, the estimated [...] Disease. Am J Kidney Dis. 2020. Plasma 04/30/2025 5:12 AM EST 04/30/2025 5:55 AM EST Raya CRUZ LAB BLOOD ORDERABLES Final Re sult Performing Organization Address [facility] Co de Phone Number [facility] [address] [facility]. [address] * Magnesium (04/30/2025 5:12 AM EST) Magnesium 1.7 1.5 - 2.5 mg/dL 04/30/2025 6:36 AM EST [facility] Plasma 04/30/2025 5:12 AM EST 04/30/2025 5:55 AM EST Raya CRUZ LAB BLOOD ORDERABLES Final Re sult Performing Organization Address [facility] Co de Phone Number [facility] [address] [facility]. [address] * (ABNORMAL) Hepatic Function Panel (04/30/2025 5:12 AM EST) Total Bilirubin 3.1(H) 0.0 - 1.5 mg/dL 04/30/2025 6:36 AM EST [facility] Bilirubin, Direct 2.10(H) 0.00 - 0.40 mg/dL 04/30/2025 6:36 AM EST [facility] AST 85(H) 13 - 39 U/L 04/30/2025 6:36 AM EST [facility] ALT 98(H) 7 - 52 U/L 04/30/2025 6:36 AM [facility] Alkaline Phosphatase 600(H) 36 - 125 U/L 04/30/2025 6:36 AM EST [facility] Total Protein 4.2(L) 6.4 - 8.9 g/dL 04/30/2025 6:36 AM [facility] Albumin 3.2(L) 3.5 - 5.7 g/dL 04/30/2025 6:36 AM [facility] Bilirubin, Indirect 1.00 0.00 - 1.10 mg/dL 04/30/2025 6:36 AM [facility] Plasma 04/30/2025 5:12 AM EST 04/30/2025 5:55 AM EST us Raya CRUZ LAB BLOOD ORDERABLES Final Re sult [facility] [address] * (ABNORMAL) CBC (04/30/2025 5:12 AM EST) WBC 4.3 3.8 - 10.8 10E3/uL 04/30/2025 6:08 AM [facility] RBC 2.29(L) 3.80 - 5.10 10E6/uL 04/30/2025 6:08 AM [facility] Hemoglobin 7.2(L) 11.7 - 15.5 g/dL 04/30/2025 6:08 AM [facility] Hematocrit 21.2(L) 35.0 - 45.0 % 04/30/2025 6:08 AM [facility] MCV 92.2 80.0 - 100.0 fL 04/30/2025 6:08 AM [facility] MCH 31.3 27.0 - 33.0 pg 04/30/2025 6:08 AM [facility] MCHC 33.9 32.0 - 36.0 g/dL 04/30/2025 6:08 AM EST [facility] RDW 20.8(H) 11.0 - 15.0 % 04/30/2025 6:08 AM EST [facility] Platelets 87(L) 140 - 400 10E3/uL 04/30/2025 6:08 AM EST [facility] MPV 10.4 7.5 - 11.5 fL 04/30/2025 6:08 AM EST [facility] Whole Blood 04/30/2025 5:12 AM EST 04/30/2025 5:55 AM EST Raya CRUZ LAB BLOOD ORDERABLES Final Re sult Performing Organization Address [facility] Co de Phone Number [facility] [address] [place] [address]. [address] * Tacrolimus level (04/30/2025 5:12 AM EST) Pathologist [facility] Tacrolimus (LC-MS) 7.5 3.0 - 15.0 ng/mL 04/30/2025 3:31 PM EST [facility] Comment:Performed via liquid chromatography tandem mass spectrometry. Detection limit: 1 ng/mL. Individual target concentrations may vary due to target organ and time after transplant. This test has been developed and its performance characteristics determined by [facility] which is certified under the Clinical Laboratory Improvement Amendment of 1988 (CLIA-88) to perform high complexity testing. The test has not been cleared or approved by the US Food and Drug Administration (FDA). The FDA has determined that such clearance is not necessary. The test should be used for clinical purposes and is not regarded as investigational. Whole Blood 04/30/2025 5:12 AM EST 04/30/2025 5:55 AM EST Gloria Chen MD LAB BLOOD ORDERABLES Final Resul t Performing Organization Address [facility] Co de Phone Number [facility] [address] [place] [address]. [address] * (ABNORMAL) POC Glucose Monitoring Device (04/29/2025 10:12 PM EST) POC Glucose Monitoring Device 127(H) 70 - 100 mg/dL 04/29/2025 10:13 PM EST [facility] Blood 04/29/2025 10:1 2 PM EST 04/29/2025 10:13 PM EST us Ludin Jose MD POINT OF CARE TEST ORDERABLES Fi nal Result Performing Organization Address [place] [facility]/ZIP Co de Phone Number [address] * (ABNORMAL) POC Glucose Monitoring Device (04/29/2025 5:04 PM EST) POC Glucose Monitoring Device 151(H) 70 - 100 mg/dL 04/29/2025 5:05 PM EST [facility] Blood 04/29/2025 5:04 PM EST 04/29/2025 5:05 PM EST us Ludin Jose MD POINT OF CARE TEST ORDERABLES Fi nal Result Performing Organization Address [facility] Co de Phone Number [address] * (ABNORMAL) POC Glucose Monitoring Device (04/29/2025 12:58 PM EST) POC Glucose Monitoring Device 169(H) 70 - 100 mg/dL 04/29/2025 12:59 PM EST [facility] Blood 04/29/2025 12:5 8 PM EST 04/29/2025 12:59 PM EST us Ludin Jose MD POINT OF CARE TEST ORDERABLES Fi nal Result Performing Organization Address City/[facility] Co de Phone Number [address] * (ABNORMAL) POC Glucose Monitoring Device (04/29/2025 11:54 AM EST) POC Glucose Monitoring Device 150(H) 70 - 100 mg/dL 04/29/2025 11:55 AM EST [facility] Blood 04/29/2025 11:5 4 AM EST 04/29/2025 11:55 AM EST us Ludin Jose MD POINT OF CARE TEST ORDERABLES Fi nal Result [facility] [address] [place] [address], [facility] * US Abdomen Limited (04/29/2025 11:18 AM EST) Anatomical Region Laterality Modality Abdomen, Pelvis Ultrasound 04/29/2025 10:4 2 AM EST Impressions 04/29/2025 12:45 PM EST IMPRESSION: ABDOMINAL ULTRASOUND Normal sonographic appearance of the transplant liver. ABDOMINAL DOPPLER Patent hepatic vasculature with normal arterial waveforms. Report Verified by: Veronique Dick MD at 04/29/2025 12:45 PM EST Narrative 04/29/2025 12:45 PM EST EXAM: US ABDOMEN LIMITED EXAM: US DUPLEX [id number] COMPLETE INDICATION: Post-op liver transplant, right lobe transplant DATE: 04/29/2025 10:42 AM EST COMPARISON: Ultrasound dated 04/25/2025, CT dated 04/29/2025 Technique: Grayscale imaging was performed for evaluation of the liver, gallbladder, common bile duct, pancreas, and right kidney; with limited grayscale and color Doppler evaluation of the upper abdominal aorta and inferior vena cava. Color and spectral (duplex) Doppler analysis of the hepatic vasculature was also performed. FINDINGS: The transplant liver is normal in echogenicity and homogeneous in echotexture. There is no evidence of intrahepatic or extrahepatic biliary ductal dilation. The common duct measures 4 mm at the denita hepatis. The gallbladder is surgically absent. There is a small amount of perihepatic fluid. The pancreas is obscured. The abdominal aorta is obscured. The right kidney measures 11.6 cm in maximal length. Renal echogenicity is normal. There is no evidence of collecting system dilation. Duplex Doppler interrogation of the hepatic vasculature was performed. Antegrade flow is seen within the main and right portal vein. Antegrade flow seen with within the main and right hepatic arteries. The resistive index in the main hepatic artery is 0.58 and in the right hepatic artery is 0.56. The right hepatic vein is patent. A patent hepatic vein graft is seen along the medial margin of the liver. The hepatic veins demonstrate flow towards the inferior vena cava. The retrohepatic inferior vena cava is patent. Procedure Note Veronique Dick MD - 04/29/2025 EXAM: US ABDOMEN LIMITED EXAM: US DUPLEX [id number] COMPLETE INDICATION: Post-op liver transplant, right lobe transplant DATE: 04/29/2025 10:42 AM EST COMPARISON: Ultrasound dated 04/25/2025, CT dated 04/29/2025 Technique: Grayscale imaging was performed for evaluation of the liver,gallbladder, common bile duct, pancreas, and right kidney; with limitedgrayscale and color Doppler evaluation of the upper abdominal aorta andinferior vena cava. Color and spectral (duplex) Doppler analysis of thehepatic vasculature was also performed. FINDINGS: The transplant liver is normal in echogenicity and homogeneous inechotexture. There is no evidence of intrahepatic or extrahepatic biliaryductal dilation. The common duct measures 4 mm at the denita hepatis. Thegallbladder is surgically absent. There is a small amount of perihepatic fluid. The pancreas is obscured. The abdominal aorta is obscured. The right kidney measures 11.6 cm in maximal length. Renal echogenicity isnormal. There is no evidence of collecting system dilation. Duplex Doppler interrogation of the hepatic vasculature was performed.Antegrade flow is seen within the main and right portal vein. Antegradeflow seen with within the main and right hepatic arteries. The resistiveindex in the main hepatic artery is 0.58 and in the right hepatic arteryis 0.56. The right hepatic vein is patent. A patent hepatic vein graft isseen along the medial margin of the liver. The hepatic veins demonstrateflow towards the inferior vena cava. The retrohepatic inferior vena cavais patent. IMPRESSION: ABDOMINAL ULTRASOUND Normal sonographic appearance of the transplant liver. ABDOMINAL DOPPLER Patent hepatic vasculature with normal arterial waveforms. Report Verified by: Veronique Dick MD at 04/29/2025 12:45 PM EST us Giovanny Louis MD IMG US ORDERABLES Final Result * US Duplex [id number] (04/29/2025 11:18 AM EST) Anatomical Region Laterality Modality Abdomen, Pelvis, Testes, Vascular Ultrasound 04/29/2025 10:4 2 AM EST Impressions 04/29/2025 12:45 PM EST IMPRESSION: ABDOMINAL ULTRASOUND Normal sonographic appearance of the transplant liver. ABDOMINAL DOPPLER Patent hepatic vasculature with normal arterial waveforms. Report Verified by: Veronique Dick MD at 04/29/2025 12:45 PM EST Narrative 04/29/2025 12:45 PM EST EXAM: US ABDOMEN LIMITED EXAM: US DUPLEX [id number] COMPLETE INDICATION: Post-op liver transplant, right lobe transplant DATE: 04/29/2025 10:42 AM EST COMPARISON: Ultrasound dated 04/25/2025, CT dated 04/29/2025 Technique: Grayscale imaging was performed for evaluation of the liver, gallbladder, common bile duct, pancreas, and right kidney; with limited grayscale and color Doppler evaluation of the upper abdominal aorta and inferior vena cava. Color and spectral (duplex) Doppler analysis of the hepatic vasculature was also performed. FINDINGS: The transplant liver is normal in echogenicity and homogeneous in echotexture. There is no evidence of intrahepatic or extrahepatic biliary ductal dilation. The common duct measures 4 mm at the deniat hepatis. The gallbladder is surgically absent. There is a small amount of perihepatic fluid. The pancreas is obscured. The abdominal aorta is obscured. The right kidney measures 11.6 cm in maximal length. Renal echogenicity is normal. There is no evidence of collecting system dilation. Duplex Doppler interrogation of the hepatic vasculature was performed. Antegrade flow is seen within the main and right portal vein. Antegrade flow seen with within the main and right hepatic arteries. The resistive index in the main hepatic artery is 0.58 and in the right hepatic artery is 0.56. The right hepatic vein is patent. A patent hepatic vein graft is seen along the medial margin of the liver. The hepatic veins demonstrate flow towards the inferior vena cava. The retrohepatic inferior vena cava is patent. Procedure Note Veronique Dick MD - 04/29/2025 EXAM: US ABDOMEN LIMITED EXAM: US DUPLEX [id number] COMPLETE INDICATION: Post-op liver transplant, right lobe transplant DATE: 04/29/2025 10:42 AM EST COMPARISON: Ultrasound dated 04/25/2025, CT dated 04/29/2025 Technique: Grayscale imaging was performed for evaluation of the liver,gallbladder, common bile duct, pancreas, and right kidney; with limitedgrayscale and color Doppler evaluation of the upper abdominal aorta andinferior vena cava. Color and spectral (duplex) Doppler analysis of thehepatic vasculature was also performed. FINDINGS: The transplant liver is normal in echogenicity and homogeneous inechotexture. There is no evidence of intrahepatic or extrahepatic biliaryductal dilation. The common duct measures 4 mm at the denita hepatis. Thegallbladder is surgically absent. There is a small amount of perihepatic fluid. The pancreas is obscured. The abdominal aorta is obscured. The right kidney measures 11.6 cm in maximal length. Renal echogenicity isnormal. There is no evidence of collecting system dilation. Duplex Doppler interrogation of the hepatic vasculature was performed.Antegrade flow is seen within the main and right portal vein. Antegradeflow seen with within the main and right hepatic arteries. The resistiveindex in the main hepatic artery is 0.58 and in the right hepatic arteryis 0.56. The right hepatic vein is patent. A patent hepatic vein graft isseen along the medial margin of the liver. The hepatic veins demonstrateflow towards the inferior vena cava. The retrohepatic inferior vena cavais patent. IMPRESSION: ABDOMINAL ULTRASOUND Normal sonographic appearance of the transplant liver. ABDOMINAL DOPPLER Patent hepatic vasculature with normal arterial waveforms. Report Verified by: Veronique Dick MD at 04/29/2025 12:45 PM EST Giovanny Louis MD [facility] [place] [facility] US ORDERABLES Final Result * ECHO COMPLETE (04/29/2025 10:17 AM EST) Anatomical Region Laterality Modality Chest Ultrasound 04/29/2025 9:47 AM EST Narrative 04/29/2025 2:07 PM EST * [facility]* [address] [place] [address] [id number] Transthoracic Echocardiogram Patient: Mindy Wade Room: Height: 65in MR Number: [id number] : 1990 Weight: 157lb Account: [id number] Gender: F BP: Study Date: 04/29/2025 Age: 35 BSA: 1.78m^2 Referring physician: Interpreting physician: Chantelle Perez MD PERFORMING Chantelle Perez MD GEOLOGICAL SPECIALIST Kalie Lopez Procedure: Order: Indications: Shortness of breath (R60.0). Study data: Height: 65in. 165.1cm. Weight: 157lb. 71.2kg. Comparison was made to the study of 02/01/2025. Study status: Routine. Procedure: A transthoracic echocardiogram was performed. Image quality was poor. Scanning was performed from the parasternal, apical, and subcostal acoustic windows. Transthoracic echocardiogram. M-mode, complete 2D, complete spectral Doppler, and color Doppler. Birthdate: Patient birthdate: 1990. Age: Patient is 35year(s) old. Sex: gender: female. Body mass index: BMI: 26.1kg/m^2. Body surface area: BSA: 1.78m^2. Patient status: Inpatient. Study date: Study date: 04/29/2025. Study time: 09:47 AM. Location: Bedside. Study Conclusions - Left ventricle: The cavity size is normal. Wall thickness is normal. Systolic function is normal. The estimated ejection fraction is 55-60%. Wall motion is normal; there are no regional wall motion abnormalities. Cannot assess LV diastolic function. - Right ventricle: Poorly visualized. Systolic function is normal. - Pulmonary arteries: Systolic pressure could not be accurately estimated. - Inferior vena cava: The IVC is not visualized. - Pericardium, extracardiac: A trivial to small pericardial effusion is identified. Cardiac Anatomy Left ventricle: - The cavity size is normal. Wall thickness is normal. Systolic function is normal. The estimated ejection fraction is 55-60%. Wall motion is normal; there are no regional wall motion abnormalities. - Cannot assess LV diastolic function. Aorta: Aortic root: The root is normal in size. Aortic valve: - TrileafletThe leaflets are normal thickness. Mobility is not restricted. Velocity is within the normal range. There is no stenosis. There is no regurgitation. The mean systolic gradient is 5mm Hg. The peak systolic gradient is 10mm Hg. The LVOT to aortic valve VTI ratio is 0.67. The valve area is 2.5cm^2. The valve area index is 1.42cm^2/m^2. The ratio of LVOT to aortic valve peak velocity is 0.55. The valve area is 2.1cm^2. The valve area index is 1.18cm^2/m^2. Mitral valve: - The valve is structurally normal. Mobility is not restricted. Inflow velocity is within the normal range. There is no evidence for stenosis. There is no regurgitation. The mean diastolic gradient is 2mm Hg. The peak diastolic gradient is 2mm Hg. The valve area is 3.2cm^2. The valve area index is 1.8cm^2/m^2. The valve area by pressure half-time is 3.7cm^2. The valve area index by pressure half-time is 2.06cm^2/m^2. The valve area (LVOT continuity) is 3.2cm^2. The valve area index (LVOT continuity) is 1.8cm^2/m^2. Left atrium: The atrium is normal in size. Pulmonary artery: - Systolic pressure could not be accurately estimated. Right ventricle: - Poorly visualized. Systolic function is normal. Pulmonic valve: - Velocity is within the normal range. There is no evidence for stenosis. There is no regurgitation. Tricuspid valve: - The valve is structurally normal. Inflow velocity is within the normal range. There is no regurgitation. Right atrium: The atrium is normal in size. Pericardium: - A trivial to small pericardial effusion is identified. Systemic veins: Inferior vena cava: The IVC is not visualized. Measurements Left Value Ref 02/01/2025 ventricle KWAN, LAX (N) 4.7 cm 3.8 - 5.2 5.6 ESD, LAX (N) 2.5 cm 2.2 - 3.5 3.6 KWAN/bsa, LAX (N) 2.6 cm/m^2 2.3 - 3.1 3.2 ESD/bsa, LAX (N) 1.4 cm/m^2 1.3 - 2.1 2.0 FS, LAX (H) 46 % 27 - 45 36 FS, LAX chord (H) 46 % 27 - 45 36 ESD major ax, 6.5 cm --------- A4C ESD/bsa major 3.7 cm/m^2 --------- ax, A4C KWAN minor ax, 6.5 cm --------- A4C KWAN/bsa minor 3.7 cm/m^2 --------- ax, A4C GUILLERMINA, A4C 25.1 cm^2 --------- LIZZETTE, A4C 13.5 cm^2 --------- FAC, A4C 46 % --------- KWAN major ax, 7.7 cm --------- A2C KWAN/bsa major 4.3 cm/m^2 --------- ax, A2C IVS, ED (N) 0.9 cm 0.6 - 0.9 0.8 ESD (N) 2.5 cm 2.2 - 3.5 3.6 ESD/bsa (N) 1.4 cm/m^2 1.3 - 2.1 2.0 PW, ED (N) 0.9 cm 0.6 - 0.9 1.0 IVS/PW, ED 0.97 --------- 0.84 EDV (N) 100 ml 46 - 106 154 ESV (N) 23 ml 14 - 42 54 EF (H) 77 % 54 - 74 65 SV 67 ml --------- 118 Qs 8.5 L/min --------- EDV/bsa (N) 56 ml/m^2 29 - 61 88 ESV/bsa (N) 13 ml/m^2 8 - 24 31 SV/bsa 38 ml/m^2 --------- 67 Qs/bsa 4.8 L/(min-m^2) --------- SV, 1-p A2C 77 ml --------- 100 SV/bsa, 1-p 43.3 ml/m^2 --------- 56.8 A2C EDV, 1-p A4C (N) 67 ml 48 - 140 ESV, 1-p A4C (N) 23 ml 12 - 60 EF, 1-p A4C (N) 65 % 46 - 78 SV, 1-p A4C 85 ml --------- 131 EDV/bsa, 1-p (N) 37 ml/m^2 30 - 82 A4C ESV/bsa, 1-p (N) 13 ml/m^2 7 - 35 A4C SV/bsa, 1-p 48 ml/m^2 --------- 74 A4C SV/bsa, 2-p 24.4 ml/m^2 --------- E', lat alma, (N) 12.9 cm/sec >=10.0 13.5 TDI E/e', lat (N) 6 <=13 11 alma, TDI E', med alma, (N) 9.3 cm/sec >=7.0 12.0 TDI E/e', med 8 --------- 12 alma, TDI E', avg, TDI 11.1 cm/sec --------- 12.8 E/e', avg, (N) 6 <=14 11 TDI LVOT Value Ref 02/01/2025 Diam, S 2.2 cm --------- 2.1 Area 3.8 cm^2 --------- 3.5 Peak mi, S 0.88 m/sec --------- 1.52 Peak grad, S 3 mm Hg --------- 9 SV 67 ml --------- 118 SV/bsa 38 ml/m^2 --------- 67 Right Value Ref 02/01/2025 ventricle KWAN minor ax, (N) 3.9 cm 2.5 - 4.1 3.8 A4C base KWAN minor ax, (H) 3.9 cm 1.9 - 3.5 3.3 A4C mid TAPSE, MM (N) 3.3 cm >=1.7 3.4 S' lateral (N) 15.1 cm/sec >=9.5 19.6 RVOT Value Ref 02/01/2025 Peak v, S 0.8 m/sec --------- 1.1 Left atrium Value Ref 02/01/2025 AP dim, ES (N) 3.4 cm 2.7 - 3.8 4.3 AP dim index, (N) 1.9 cm/m^2 1.5 - 2.3 2.4 ES Area ES, A4C (N) 12 cm^2 <=20 Area/bsa ES, 6.74 cm^2/m^2 --------- A4C SI dim, A2C 5.3 cm --------- Vol, S (N) 25 ml 52 Vol/bsa, S (L) 14 ml/m^2 Vol, ES, 1-p (N) 24 ml 52 A4C Vol/bsa, ES, (N) 14 ml/m^2 11 - 40 1-p A4C Vol, ES, 1-p (N) 25 ml 52 A2C Vol/bsa, ES, (N) 14 ml/m^2 13 - 40 1-p A2C Vol, ES, 2-p 25 ml --------- Vol/bsa, ES, (L) 14 ml/m^2 16 - 34 2-p Right atrium Value Ref 02/01/2025 Area, ES, A4C (N) 13 cm^2 10 - 18 Aortic valve Value Ref 02/01/2025 Leaflet sep, 1.9 cm --------- MM Peak v, S 1.6 m/sec --------- 2 Mean v, S 1.07 m/sec --------- 1.27 Mean grad, S 5 mm Hg --------- 8 Peak grad, S 10 mm Hg --------- 16 LVOT/AV, VTI 0.67 --------- 0.82 ratio MARIA ESTHER, VTI 2.5 cm^2 --------- 2.8 MARIA ESTHER/bsa, VTI 1.42 cm^2/m^2 --------- 1.61 LVOT/AV, 0.55 --------- 0.76 Vpeak ratio MARIA ESTHER, Vmax 2.1 cm^2 --------- 2.6 MARAI ESTHER/bsa, Vmax 1.18 cm^2/m^2 --------- 1.49 Mitral valve Value Ref 02/01/2025 Mean v, D 0.7 m/sec --------- Peak E 0.71 m/sec --------- 1.42 Peak A 0.91 m/sec --------- 0.44 VTI leaflet 20.8 cm --------- coapt MiV/LVOT VTI 1.2 --------- Decel slope 488 cm/s^2 --------- 692 Decel time 166 ms --------- 205 PHT 60 ms --------- 60 Mean grad, D 2 mm Hg --------- Peak grad, D 2 mm Hg --------- 8 Peak E/A 0.8 --------- 3.2 ratio E-VTI 20.8 cm --------- A-VTI 20.8 cm --------- VTI E/A 1.0 --------- MVA 3.2 cm^2 --------- MVA/bsa 1.8 cm^2/m^2 --------- MVA, PHT 3.7 cm^2 --------- 3.7 MVA/bsa, PHT 2.06 cm^2/m^2 --------- 2.09 MVA, LVOT 3.2 cm^2 --------- cont MVA/bsa, LVOT 1.8 cm^2/m^2 --------- cont Alma VTI 20.8 cm --------- Pulmonic Value Ref 02/01/2025 valve Peak v, S 1.6 m/sec --------- 1.3 Accel time 160 ms --------- Aortic root Value Ref 02/01/2025 Root diam (N) 3.3 cm 2.5 - 3.4 3.4 Root diam/bsa 1.9 cm/m^2 --------- 1.9 Legend: (L) and (H) maribeth values outside specified reference range. (N) mcgraw values inside specified reference range. Reviewed and confirmed by Chantelle Perez MD [id number] Procedure Note Chantelle Perez MD - 05/02/2025 * [facility]* [address] [place] [id number] Transthoracic Echocardiogram Patient: Mindy Wade Room: Height: 65in MR Number: [id number] : 1990 Weight:157lb Account: [id number] Gender: F BP: Study Date: 04/29/2025 Age: 35 BSA:1.78m^2 Referring physician: Interpreting physician: Chantelle Perez MD PERFORMING Chantelle Perez MD GEOLOGICAL SPECIALIST Kalie Lopez Procedure: Order: Indications: Shortness of breath (R60.0). Study data: Height: 65in. 165.1cm. Weight: 157lb. 71.2kg. Comparisonwas made to the study of 02/01/2025. Study status: Routine. Procedure: A transthoracic echocardiogram was performed. Image quality was poor.Scanning was performed from the parasternal, apical, and subcostal acousticwindows. Transthoracic echocardiogram. M-mode, complete 2D, complete spectral Doppler, and color Doppler. Birthdate: Patient birthdate: 1990. Age: Patient is 35year(s) old. Sex: gender:female. Body mass index: BMI: 26.1kg/m^2. Body surface area: BSA: 1.78m^2. Patient status: Inpatient. Study date: Study date: 04/29/2025. Study time: 09:47 AM. Location: Bedside. Study Conclusions - Left ventricle: The cavity size is normal. Wall thickness is normal. Systolic function is normal. The estimated ejection fraction is55-60%. Wall motion is normal; there are no regional wall motionabnormalities. Cannot assess LV diastolic function. - Right ventricle: Poorly visualized. Systolic function is normal. - Pulmonary arteries: Systolic pressure could not be accuratelyestimated. - Inferior vena cava: The IVC is not visualized. - Pericardium, extracardiac: A trivial to small pericardial effusion is identified. Cardiac Anatomy Left ventricle: - The cavity size is normal. Wall thickness is normal. Systolic functionis normal. The estimated ejection fraction is 55-60%. Wall motion isnormal; there are no regional wall motion abnormalities. - Cannot assess LV diastolic function. Aorta: Aortic root: The root is normal in size. Aortic valve: - TrileafletThe leaflets are normal thickness. Mobility is notrestricted. Velocity is within the normal range. There is no stenosis. There is no regurgitation. The mean systolic gradient is 5mm Hg. The peak systolic gradient is 10mm Hg. The LVOT to aortic valve VTI ratio is 0.67. Thevalve area is 2.5cm^2. The valve area index is 1.42cm^2/m^2. The ratio ofLVOT to aortic valve peak velocity is 0.55. The valve area is 2.1cm^2. The valve area index is 1.18cm^2/m^2. Mitral valve: - The valve is structurally normal. Mobility is not restricted. Inflow velocity is within the normal range. There is no evidence forstenosis. There is no regurgitation. The mean diastolic gradient is 2mm Hg. Thepeak diastolic gradient is 2mm Hg. The valve area is 3.2cm^2. The valvearea index is 1.8cm^2/m^2. The valve area by pressure half-time is 3.7cm^2.The valve area index by pressure half-time is 2.06cm^2/m^2. The valve area (LVOT continuity) is 3.2cm^2. The valve area index (LVOT continuity)is 1.8cm^2/m^2. Left atrium: The atrium is normal in size. Pulmonary artery: - Systolic pressure could not be accurately estimated. Right ventricle: - Poorly visualized. Systolic function is normal. Pulmonic valve: - Velocity is within the normal range. There is no evidence forstenosis. There is no regurgitation. Tricuspid valve: - The valve is structurally normal. Inflow velocity is within the normal range. There is no regurgitation. Right atrium: The atrium is normal in size. Pericardium: - A trivial to small pericardial effusion is identified. Systemic veins: Inferior vena cava: The IVC is not visualized. Measurements Left Value Ref 02/01/2025 ventricle KWAN, LAX (N) 4.7 cm 3.8 - 5.2 5.6 ESD, LAX (N) 2.5 cm 2.2 - 3.5 3.6 KWAN/bsa, LAX (N) 2.6 cm/m^2 2.3 - 3.1 3.2 ESD/bsa, LAX (N) 1.4 cm/m^2 1.3 - 2.1 2.0 FS, LAX (H) 46 % - 36 FS, LAX chord (H) 46 % 27 - 45 36 ESD major ax, 6.5 cm --------- A4C ESD/bsa major 3.7 cm/m^2 --------- ax, A4C KWAN minor ax, 6.5 cm --------- A4C KWAN/bsa minor 3.7 cm/m^2 --------- ax, A4C GUILLERMINA, A4C 25.1 cm^2 --------- LIZZETTE, A4C 13.5 cm^2 --------- FAC, A4C 46 % --------- KWAN major ax, 7.7 cm --------- A2C KWAN/bsa major 4.3 cm/m^2 --------- ax, A2C IVS, ED (N) 0.9 cm 0.6 - 0.9 0.8 ESD (N) 2.5 cm 2.2 - 3.5 3.6 ESD/bsa (N) 1.4 cm/m^2 1.3 - 2.1 2.0 PW, ED (N) 0.9 cm 0.6 - 0.9 1.0 IVS/PW, ED 0.97 --------- 0.84 EDV (N) 100 ml 46 - 106 154 ESV (N) 23 ml 14 - 42 54 EF (H) 77 % 54 - 74 65 SV 67 ml --------- 118 Qs 8.5 L/min --------- EDV/bsa (N) 56 ml/m^2 29 - 61 88 ESV/bsa (N) 13 ml/m^2 8 - 24 31 SV/bsa 38 ml/m^2 --------- 67 Qs/bsa 4.8 L/(min-m^2) --------- SV, 1-p A2C 77 ml --------- 100 SV/bsa, 1-p 43.3 ml/m^2 --------- 56.8 A2C EDV, 1-p A4C (N) 67 ml 48 - 140 ESV, 1-p A4C (N) 23 ml 12 - 60 EF, 1-p A4C (N) 65 % 46 - 78 SV, 1-p A4C 85 ml --------- 131 EDV/bsa, 1-p (N) 37 ml/m^2 30 - 82 A4C ESV/bsa, 1-p (N) 13 ml/m^2 7 - 35 A4C SV/bsa, 1-p 48 ml/m^2 --------- 74 A4C SV/bsa, 2-p 24.4 ml/m^2 --------- E', lat alma, (N) 12.9 cm/sec >=10.0 13.5 TDI E/e', lat (N) 6 <=13 11 alma, TDI E', med alma, (N) 9.3 cm/sec >=7.0 12.0 TDI E/e', med 8 --------- 12 alma, TDI E', avg, TDI 11.1 cm/sec --------- 12.8 E/e', avg, (N) 6 <=14 11 TDI LVOT Value Ref 02/01/2025 Diam, S 2.2 cm --------- 2.1 Area 3.8 cm^2 --------- 3.5 Peak mi, S 0.88 m/sec --------- 1.52 Peak grad, S 3 mm Hg --------- 9 SV 67 ml --------- 118 SV/bsa 38 ml/m^2 --------- 67 Right Value Ref 02/01/2025 ventricle KWAN minor ax, (N) 3.9 cm 2.5 - 4.1 3.8 A4C base KWAN minor ax, (H) 3.9 cm 1.9 - 3.5 3.3 A4C mid TAPSE, MM (N) 3.3 cm >=1.7 3.4 S' lateral (N) 15.1 cm/sec >=9.5 19.6 RVOT Value Ref 02/01/2025 Peak v, S 0.8 m/sec --------- 1.1 Left atrium Value Ref 02/01/2025 AP dim, ES (N) 3.4 cm 2.7 - 3.8 4.3 AP dim index, (N) 1.9 cm/m^2 1.5 - 2.3 2.4 ES Area ES, A4C (N) 12 cm^2 <=20 Area/bsa ES, 6.74 cm^2/m^2 --------- A4C SI dim, A2C 5.3 cm --------- Vol, S (N) 25 ml 52 Vol/bsa, S (L) 14 ml/m^2 16 - 34 Vol, ES, 1-p (N) 24 ml 52 A4C Vol/bsa, ES, (N) 14 ml/m^2 11 - 40 1-p A4C Vol, ES, 1-p (N) 25 ml 52 A2C Vol/bsa, ES, (N) 14 ml/m^2 13 - 40 1-p A2C Vol, ES, 2-p 25 ml --------- Vol/bsa, ES, (L) 14 ml/m^2 16 - 34 2-p Right atrium Value Ref 02/01/2025 Area, ES, A4C (N) 13 cm^2 10 - 18 Aortic valve Value Ref 02/01/2025 Leaflet sep, 1.9 cm --------- MM Peak v, S 1.6 m/sec --------- 2 Mean v, S 1.07 m/sec --------- 1.27 Mean grad, S 5 mm Hg --------- 8 Peak grad, S 10 mm Hg --------- 16 LVOT/AV, VTI 0.67 --------- 0.82 ratio MARIA ESTHER, VTI 2.5 cm^2 --------- 2.8 MARIA ESTHER/bsa, VTI 1.42 cm^2/m^2 --------- 1.61 LVOT/AV, 0.55 --------- 0.76 Vpeak ratio MARIA ESTHER, Vmax 2.1 cm^2 --------- 2.6 MARIA ESTHER/bsa, Vmax 1.18 cm^2/m^2 --------- 1.49 Mitral valve Value Ref 02/01/2025 Mean v, D 0.7 m/sec --------- Peak E 0.71 m/sec --------- 1.42 Peak A 0.91 m/sec --------- 0.44 VTI leaflet 20.8 cm --------- coapt MiV/LVOT VTI 1.2 --------- Decel slope 488 cm/s^2 --------- 692 Decel time 166 ms --------- 205 PHT 60 ms --------- 60 Mean grad, D 2 mm Hg --------- Peak grad, D 2 mm Hg --------- 8 Peak E/A 0.8 --------- 3.2 ratio E-VTI 20.8 cm --------- A-VTI 20.8 cm --------- VTI E/A 1.0 --------- MVA 3.2 cm^2 --------- MVA/bsa 1.8 cm^2/m^2 --------- MVA, PHT 3.7 cm^2 --------- 3.7 MVA/bsa, PHT 2.06 cm^2/m^2 --------- 2.09 MVA, LVOT 3.2 cm^2 --------- cont MVA/bsa, LVOT 1.8 cm^2/m^2 --------- cont Alma VTI 20.8 cm --------- Pulmonic Value Ref 02/01/2025 valve Peak v, S 1.6 m/sec --------- 1.3 Accel time 160 ms --------- Aortic root Value Ref 02/01/2025 Root diam (N) 3.3 cm 2.5 - 3.4 3.4 Root diam/bsa 1.9 cm/m^2 --------- 1.9 Legend: (L) and (H) maribeth values outside specified reference range. (N) mcgraw values inside specified reference range. Reviewed and confirmed by Chantelle Perez MD [id number] us Jostin Hess MD CV ECHO ORDERABLES Fi nal Result * CT Abdomen and Pelvis With IV contrast (04/29/2025 6:06 AM EST) Anatomical Region Laterality Modality Abdomen, Pelvis Computed Tomogra phy 04/29/2025 5:54 AM EST Impressions 04/29/2025 7:21 AM EST IMPRESSION: 1. Post right liver transplantation. 2. The hepatic vasculature appears patent. 3. Mild bowel dilatation, ileus pattern. Report Verified by: Mark Pittman MD at 04/29/2025 7:21 AM EST Narrative 04/29/2025 7:21 AM EST EXAM: CT ABDOMEN AND PELVIS WITH IV CONTRAST INDICATION: Other diseases of liver, Liver Transplant Recipient with Edema and Pain TECHNIQUE: CT of the abdomen was performed after the administration of intravenous contrast in the late arterial, portal venous, and delayed phases. CT of the pelvis was also performed in the portal venous phase. Axial images were obtained with coronal and sagittal reconstructions. CONTRAST: 125 mL of IOHEXOL 350 MG IODINE/ML INTRAVENOUS SOLUTION administered intravenously FIELD OF VIEW: 36 cm DATE: 04/29/2025 5:54 AM EST COMPARISON: Ultrasound dated 04/25/2025 and prior FINDINGS: Lower chest: Small right pleural effusion and trace left pleural effusion. Complete right lower lobe collapse. Segmental left lower lobe atelectasis. No pneumothorax. Normal heart size. Central venous catheter tip in the right atrium. Liver: Post right lobe liver transplantation. The liver allograft is normal in density without focal lesions. Hepatic vasculature: The main and right hepatic arteries are patent. The main and right portal vein branches are patent. A patent right hepatic vein is visualized. 2 hepatic vein tributaries appear to join just proximal to the vena cava. No evidence for hepatic vein thrombosis. Biliary tree:No biliary ductal dilation. Cholecystectomy and hepaticojejunostomy. Spleen: Unchanged mild splenomegaly. Pancreas: Normal Adrenal glands: Normal Kidneys/Ureters/Bladder: Normal size without hydronephrosis. No stones. No mass lesions. Normal appearance of the urinary bladder. Gastrointestinal tract: The stomach is normal in caliber. Mild diffuse dilatation of the small bowel with fluid and gas, without a transition point. Mild colonic dilatation with liquid stool and gas. Mild right colonic edema. Absent appendix. Lymphatics: No lymphadenopathy. Vasculature: * Hepatic vasculature detailed above. * Normal caliber aorta without atherosclerosis. 3 right renal arteries. * Small residual gastroesophageal varices. Peritoneum/Retroperitoneum: No substantial ascites. No focal fluid collections. No free air. 2 surgical drains enter the right abdomen and terminate in the right subphrenic space, without substantial surrounding fluid. Genital Organs: Normal Abdominal wall/Soft tissues: Closed incision. Surgical drains. Mild subcutaneous edema. Osseous structures: No acute osseous abnormalities or suspicious osseous lesions. Procedure Note Mark Pittman MD - 04/29/2025 EXAM: CT ABDOMEN AND PELVIS WITH IV CONTRAST INDICATION: Other diseases of liver, Liver Transplant Recipient with Edemaand Pain TECHNIQUE: CT of the abdomen was performed after the administration ofintravenous contrast in the late arterial, portal venous, and delayedphases. CT of the pelvis was also performed in the portal venous phase.Axial images were obtained with coronal and sagittal reconstructions. CONTRAST: 125 mL of IOHEXOL 350 MG IODINE/ML INTRAVENOUS SOLUTIONadministered intravenously FIELD OF VIEW: 36 cm DATE: 04/29/2025 5:54 AM EST COMPARISON: Ultrasound dated 04/25/2025 and prior FINDINGS: Lower chest: Small right pleural effusion and trace left pleural effusion.Complete right lower lobe collapse. Segmental left lower lobe atelectasis.No pneumothorax. Normal heart size. Central venous catheter tip in theright atrium. Liver: Post right lobe liver transplantation. The liver allograft isnormal in density without focal lesions. Hepatic vasculature: The main and right hepatic arteries are patent. Themain and right portal vein branches are patent. A patent right hepaticvein is visualized. 2 hepatic vein tributaries appear to join justproximal to the vena cava. No evidence for hepatic vein thrombosis. Biliary tree:No biliary ductal dilation. Cholecystectomy andhepaticojejunostomy. Spleen: Unchanged mild splenomegaly. Pancreas: Normal Adrenal glands: Normal Kidneys/Ureters/Bladder: Normal size without hydronephrosis. No stones.No mass lesions. Normal appearance of the urinary bladder. Gastrointestinal tract: The stomach is normal in caliber. Mild diffusedilatation of the small bowel with fluid and gas, without a transitionpoint. Mild colonic dilatation with liquid stool and gas. Mild rightcolonic edema. Absent appendix. Lymphatics: No lymphadenopathy. Vasculature: * Hepatic vasculature detailed above. * Normal caliber aorta without atherosclerosis. 3 right renal arteries. * Small residual gastroesophageal varices. Peritoneum/Retroperitoneum: No substantial ascites. No focal fluidcollections. No free air. 2 surgical drains enter the right abdomen andterminate in the right subphrenic space, without substantial surroundingfluid. Genital Organs: Normal Abdominal wall/Soft tissues: Closed incision. Surgical drains. Mildsubcutaneous edema. Osseous structures: No acute osseous abnormalities or suspicious osseouslesions. IMPRESSION: 1. Post right liver transplantation. 2. The hepatic vasculature appears patent. 3. Mild bowel dilatation, ileus pattern. Report Verified by: Mark Pittman MD at 04/29/2025 7:21 AM EST Gloria Chen MD IMG CT ORDERABLES Final Result * (ABNORMAL) Renal Function Panel w/EGFR (04/29/2025 5:25 AM EST) Sodium 135 133 - 146 mmol/L 04/29/2025 6:09 AM EST [facility] Potassium 4.1 3.5 - 5.3 mmol/L 04/29/2025 6:09 AM EST [facility] Chloride 108 98 - 110 mmol/L 04/29/2025 6:09 AM EST [facility] CO2 23 21 - 33 mmol/L 04/29/2025 6:09 AM EST [facility] Comment:High lactate dehydro genase concentrations in patient samples may cause falsely increased bicarbonate results. If markedly elevated LDH is observed or suspected, please assess results in conjunction with patient`s clinical presentation. In cases of discrepant results, consider evaluating CO2 in with a blood gas order. Anion Gap 4 3 - 16 mmol/L 04/29/2025 6:09 AM EST [facility] BUN 18 7 - 25 mg/dL 04/29/2025 6:09 AM EST [facility] Creatinine 0.75 0.60 - 1.30 mg/dL 04/29/2025 6:09 AM EST [facility] Glucose 95 70 - 100 mg/dL 04/29/2025 6:09 AM EST [facility] Calcium 7.7(L) 8.6 - 10.3 mg/dL 04/29/2025 6:09 AM EST [facility] Phosphorus 3.0 2.1 - 4.7 mg/dL 04/29/2025 6:09 AM EST [facility] Albumin 2.4(L) 3.5 - 5.7 g/dL 04/29/2025 6:09 AM EST [facility] Osmolality, Calculated 282 278 - 305 mOsm/kg 04/29/2025 6:09 AM EST [facility] EGFR >90 04/29/2025 6:09 AM EST [facility] Comment: As of 2021, the estimated [...] renal disease. For additional information: www.kidney.org Plasma 04/29/2025 5:25 AM EST 04/29/2025 5:32 AM EST Raya CRUZ LAB BLOOD ORDERABLES Final Re sult [facility] [address] [facility] [place] [address], [facility] * Magnesium (04/29/2025 5:25 AM EST) Magnesium 1.7 1.5 - 2.5 mg/dL 04/29/2025 6:09 AM EST [facility] Plasma 04/29/2025 5:25 AM EST 04/29/2025 5:32 AM EST Raya CRUZ LAB BLOOD ORDERABLES Final Re sult [facility] [address] * (ABNORMAL) Hepatic Function Panel (04/29/2025 5:25 AM EST) Total Bilirubin 3.1(H) 0.0 - 1.5 mg/dL 04/29/2025 6:09 AM EST [facility] Bilirubin, Direct 2.02(H) 0.00 - 0.40 mg/dL 04/29/2025 6:09 AM EST [facility] AST 62(H) 13 - 39 U/L 04/29/2025 6:09 AM EST [facility] ALT 94(H) 7 - 52 U/L 04/29/2025 6:09 AM EST [facility] Alkaline Phosphatase 452(H) 36 - 125 U/L 04/29/2025 6:09 AM EST [facility] Total Protein 4.0(L) 6.4 - 8.9 g/dL 04/29/2025 6:09 AM EST [facility] Albumin 2.4(L) 3.5 - 5.7 g/dL 04/29/2025 6:09 AM EST [facility] Bilirubin, Indirect 1.08 0.00 - 1.10 mg/dL 04/29/2025 6:09 AM EST [facility] Plasma 04/29/2025 5:25 AM EST 04/29/2025 5:32 AM EST Raya CRUZ LAB BLOOD ORDERABLES Final Re sult [facility] [address] [place] [facility]. [address] * (ABNORMAL) CBC (04/29/2025 5:25 AM EST) WBC 5.3 3.8 - 10.8 10E3/uL 04/29/2025 5:49 AM EST [facility] RBC 2.56(L) 3.80 - 5.10 10E6/uL 04/29/2025 5:49 AM EST [facility] Hemoglobin 7.9(L) 11.7 - 15.5 g/dL 04/29/2025 5:49 AM EST [facility] Hematocrit 23.3(L) 35.0 - 45.0 % 04/29/2025 5:49 AM EST [facility] MCV 90.8 80.0 - 100.0 fL 04/29/2025 5:49 AM EST [facility] MCH 30.9 27.0 - 33.0 pg 04/29/2025 5:49 AM EST [facility] MCHC 34.0 32.0 - 36.0 g/dL 04/29/2025 5:49 AM EST [facility] RDW 18.9(H) 11.0 - 15.0 % 04/29/2025 5:49 AM EST [facility] Platelets 92(L) 140 - 400 10E3/uL 04/29/2025 5:49 AM EST [facility] MPV 10.0 7.5 - 11.5 fL 04/29/2025 5:49 AM [facility] Whole Blood 04/29/2025 5:25 AM EST 04/29/2025 5:32 AM EST Raya CRUZ LAB BLOOD ORDERABLES Final Re sult [facility] [address] * (ABNORMAL) Tacrolimus level (04/29/2025 5:25 AM EST) Tacrolimus (LC-MS) 16.8(H) 3.0 - 15.0 ng/mL 04/29/2025 10:35 AM EST [facility] Comment:Performed via liquid chromatography tandem mass spectrometry. Detection limit: 1 ng/mL. Individual target concentrations may vary due to target organ and time after transplant. This test has been developed and its performance characteristics determined by [facility] which is certified under the Clinical Laboratory Improvement Amendment of 1988 (CLIA-88) to perform high complexity testing. The test has not been cleared or approved by the US Food and Drug Administration (FDA). The FDA has determined that such clearance is not necessary. The test should be used for clinical purposes and is not regarded as investigational. Whole Blood 04/29/2025 5:25 AM EST 04/29/2025 5:32 AM EST Gloria Chen MD LAB BLOOD ORDERABLES Final Resul t Performing Organization Address [facility] Co de Phone Number [address] * POC Glucose Monitoring Device (04/29/2025 5:06 AM EST) POC Glucose Monitoring Device 97 70 - 100 mg/dL 04/29/2025 5:07 AM EST [facility] Blood 04/29/2025 5:06 AM EST 04/29/2025 5:07 AM EST Ludin Jose MD POINT OF CARE TEST ORDERABLES Fi nal Result Performing Organization Address [facility] de Phone Number [address] * (ABNORMAL) POC Glucose Monitoring Device (04/28/2025 11:10 PM EST) POC Glucose Monitoring Device 131(H) 70 - 100 mg/dL 04/28/2025 11:11 PM EST [facility] Blood 04/28/2025 11:1 0 PM EST 04/28/2025 11:10 PM EST us Ludin Jose MD POINT OF CARE TEST ORDERABLES Fi nal Result Performing Organization Address [facility] Co de Phone Number [address] * (ABNORMAL) POC Glucose Monitoring Device (04/28/2025 5:19 PM EST) POC Glucose Monitoring Device 137(H) 70 - 100 mg/dL 04/28/2025 5:20 PM EST [facility] Blood 04/28/2025 5:19 PM EST 04/28/2025 5:20 PM EST us Ludin Jose MD POINT OF CARE TEST ORDERABLES Fi nal Result Performing Organization Address City/[facility] Co de Phone Number [facility] [address] [place] [address] * (ABNORMAL) POC Glucose Monitoring Device (04/28/2025 10:58 AM EST) POC Glucose Monitoring Device 132(H) 70 - 100 mg/dL 04/28/2025 10:59 AM EST [facility] Blood 04/28/2025 10:5 8 AM EST 04/28/2025 10:58 AM EST us Ludin Jose MD POINT OF CARE TEST ORDERABLES Fi nal Result Performing Organization Address [facility] de Phone Number [facility] [address] [facility]. [address] * (ABNORMAL) POC Glucose Monitoring Device (04/28/2025 6:43 AM EST) POC Glucose Monitoring Device 111(H) 70 - 100 mg/dL 04/28/2025 6:44 AM EST [facility] Blood 04/28/2025 6:43 AM EST 04/28/2025 6:44 AM EST us Ludin Jose MD POINT OF CARE TEST ORDERABLES Fi nal Result Performing Organization Address [facility] de Phone Number [facility] [address] * (ABNORMAL) Renal Function Panel w/EGFR (04/28/2025 6:37 AM EST) Sodium 136 133 - 146 mmol/L 04/28/2025 7:30 AM [facility] Potassium 3.7 3.5 - 5.3 mmol/L 04/28/2025 7:30 AM [facility] Chloride 106 98 - 110 mmol/L 04/28/2025 7:30 AM [facility] CO2 23 21 - 33 mmol/L 04/28/2025 7:30 AM [facility] Comment:High lactate dehydro genase concentrations in patient samples may cause falsely increased bicarbonate results. If markedly elevated LDH is observed or suspected, please assess results in conjunction with patient`s clinical presentation. In cases of discrepant results, consider evaluating CO2 in with a blood gas order. Anion Gap 7 3 - 16 mmol/L 04/28/2025 7:30 AM [facility] BUN 17 7 - 25 mg/dL 04/28/2025 7:30 AM [facility] Creatinine 0.68 0.60 - 1.30 mg/dL 04/28/2025 7:30 AM [facility] Glucose 105(H) 70 - 100 mg/dL 04/28/2025 7:30 AM [facility] Calcium 7.5(L) 8.6 - 10.3 mg/dL 04/28/2025 7:30 AM [facility] Phosphorus 2.4 2.1 - 4.7 mg/dL 04/28/2025 7:30 AM [facility] Albumin 2.2(L) 3.5 - 5.7 g/dL 04/28/2025 7:30 AM [facility] Osmolality, Calculated 284 278 - 305 mOsm/kg 04/28/2025 7:30 AM [facility] EGFR >90 04/28/2025 7:30 AM [facility] Comment: As of 2021, the [...] renal disease. For additional information: www.kidney.org Plasma 04/28/2025 6:37 AM EST 04/28/2025 6:52 AM EST Raya CRUZ LAB BLOOD ORDERABLES Final Re sult Performing Organization Address [facility]/ZIP Co de Phone Number [facility] [address] [facility]. [address] * Magnesium (04/28/2025 6:37 AM EST) Magnesium 1.9 1.5 - 2.5 mg/dL 04/28/2025 7:30 AM EST [facility] Plasma 04/28/2025 6:37 AM EST 04/28/2025 6:52 AM EST Raya CRUZ LAB BLOOD ORDERABLES Final Re sult Performing Organization Address [facility] Co de Phone Number [facility] [address] [place] [address]. [address] * (ABNORMAL) Hepatic Function Panel (04/28/2025 6:37 AM EST) Total Bilirubin 3.4(H) 0.0 - 1.5 mg/dL 04/28/2025 7:30 AM EST [facility] Bilirubin, Direct 2.28(H) 0.00 - 0.40 mg/dL 04/28/2025 7:30 AM EST [facility] AST 66(H) 13 - 39 U/L 04/28/2025 7:30 AM EST [facility] ALT 104(H) 7 - 52 U/L 04/28/2025 7:30 AM EST [facility] Alkaline Phosphatase 397(H) 36 - 125 U/L 04/28/2025 7:30 AM [facility] Total Protein 3.9(L) 6.4 - 8.9 g/dL 04/28/2025 7:30 AM EST [facility] Albumin 2.2(L) 3.5 - 5.7 g/dL 04/28/2025 7:30 AM [facility] Bilirubin, Indirect 1.12(H) 0.00 - 1.10 mg/dL 04/28/2025 7:30 AM [facility] Plasma 04/28/2025 6:37 AM EST 04/28/2025 6:52 AM EST us Raya CRUZ LAB BLOOD ORDERABLES Final Re sult [facility] [address] * (ABNORMAL) CBC (04/28/2025 6:37 AM EST) WBC 6.2 3.8 - 10.8 10E3/uL 04/28/2025 8:10 AM [facility] RBC 2.69(L) 3.80 - 5.10 10E6/uL 04/28/2025 8:10 AM [facility] Hemoglobin 8.4(L) 11.7 - 15.5 g/dL 04/28/2025 8:10 AM [facility] Hematocrit 24.1(L) 35.0 - 45.0 % 04/28/2025 8:10 AM [facility] MCV 89.7 80.0 - 100.0 fL 04/28/2025 8:10 AM [facility] MCH 31.2 27.0 - 33.0 pg 04/28/2025 8:10 AM [facility] MCHC 34.8 32.0 - 36.0 g/dL 04/28/2025 8:10 AM [facility] RDW 17.7(H) 11.0 - 15.0 % 04/28/2025 8:10 AM [facility] Platelets 111(L) 140 - 400 10E3/uL 04/28/2025 8:10 AM [facility] Comment:Specimen checked for clots. None detected. MPV 10.0 7.5 - 11.5 fL 04/28/2025 8:10 AM EST [facility] Whole Blood 04/28/2025 6:37 AM EST 04/28/2025 6:52 AM EST Raya CRUZ LAB BLOOD ORDERABLES Final Re sult Performing Organization Address [facility] Co de Phone Number [facility] [address] [facility]. [address] * (ABNORMAL) Tacrolimus level (04/28/2025 6:37 AM EST) Tacrolimus (LC-MS) 16.6(H) 3.0 - 15.0 ng/mL 04/28/2025 10:26 AM EST [facility] Comment:Performed via liquid chromatography tandem mass spectrometry. Detection limit: 1 ng/mL. Individual target concentrations may vary due to target organ and time after transplant. This test has been developed and its performance characteristics determined by [facility] which is certified under the Clinical Laboratory Improvement Amendment of 1988 (CLIA-88) to perform high complexity testing. The test has not been cleared or approved by the US Food and Drug Administration (FDA). The FDA has determined that such clearance is not necessary. The test should be used for clinical purposes and is not regarded as investigational. Whole Blood 04/28/2025 6:37 AM EST 04/28/2025 6:52 AM EST Gloria Chen MD LAB BLOOD ORDERABLES Final Resul t Performing Organization Address City/[facility]/ZIP Co de Phone Number [facility] [address] [place] [address]. [address] * (ABNORMAL) POC Glucose Monitoring Device (04/27/2025 11:04 PM EST) POC Glucose Monitoring Device 101(H) 70 - 100 mg/dL 04/27/2025 11:05 PM EST [facility] Blood 04/27/2025 11:0 4 PM EST 04/27/2025 11:05 PM EST Ludin Jose MD POINT OF CARE TEST ORDERABLES Fi nal Result [facility] [address] * CORNELIUS Rhythm Strip - Scan (04/27/2025 7:26 PM EST) us Scanning Uchhim SCAN DOCS - NO RESULTS Final Res ult * ECG 12-lead (MUSE) (04/27/2025 5:57 PM EST) 04/27/2025 5:57 PM EST Narrative MUSE - 04/28/2025 11:52 AM EST Ventricular Rate: 77 BPM Atrial Rate: 77 BPM P-R Interval: 102 ms QRS Duration: 90 ms QT: 420 ms QTc: 475 ms P [place]: 7 degrees R [place]: 16 degrees T [place]: 29 degrees Diagnosis Line: SINUS RHYTHM WITH SHORT ME ^ OTHERWISE NORMAL ECG ^ ^ Confirmed by Anthony RAMOS MD ([id number]) on 04/28/2025 11:52:02 AM us Raya CRUZ ECG ORDERABLES Final Result MUSE * (ABNORMAL) POC Glucose Monitoring Device (04/27/2025 5:55 PM EST) POC Glucose Monitoring Device 113(H) 70 - 100 mg/dL 04/27/2025 5:56 PM EST [facility] Blood 04/27/2025 5:55 PM EST 04/27/2025 5:56 PM EST Ludin Jose MD POINT OF CARE TEST ORDERABLES Fi nal Result [facility] [address] [facility]. [address] * (ABNORMAL) Triglycerides (04/27/2025 11:36 AM EST) Triglycerides 247(H) 10 - 149 mg/dL 04/27/2025 1:31 PM EST [facility] Plasma 04/27/2025 11:3 6 AM EST 04/27/2025 12:05 PM EST us Raya CRUZ LAB BLOOD ORDERABLES Final Re sult [facility] [address] * (ABNORMAL) POC Glucose Monitoring Device (04/27/2025 11:31 AM EST) POC Glucose Monitoring Device 134(H) 70 - 100 mg/dL 04/27/2025 11:32 AM EST [facility] Blood 04/27/2025 11:3 1 AM EST 04/27/2025 11:32 AM EST Ludin Jose MD POINT OF CARE TEST ORDERABLES Fi nal Result Performing Organization Address [facility] Co de Phone Number [facility] [address] [facility]. [address] * X-ray Portable Abdomen AP view (04/27/2025 6:50 AM EST) Anatomical Region Laterality Modality Abdomen Radiographic Radha ging 04/27/2025 6:25 AM EST Impressions 04/27/2025 7:58 AM EST IMPRESSION: Diffuse gaseous distention of small and large bowel loops in a pattern suggesting ileus. Report Verified by: Seble Crawford MD at 04/27/2025 7:58 AM EST Narrative 04/27/2025 7:58 AM EST EXAM: XR PORTABLE ABDOMEN AP INDICATION: post op ileus TECHNIQUE: Supine AP view of the abdomen COMPARISON: 04/26/2025 FINDINGS: Enteric tube tip terminates over the gastric antrum Post surgical changes of recent liver transplant in the right upper quadrant There is diffuse gaseous distention of small and large bowel loops in a pattern suggesting ileus. Small stool burden. Supine positioning limits evaluation for free air; however, no large volume pneumoperitoneum is seen. No acute osseous abnormalities are identified. Procedure Note Seble Crawford MD - 04/27/2025 EXAM: XR PORTABLE ABDOMEN AP INDICATION: post op ileus TECHNIQUE: Supine AP view of the abdomen COMPARISON: 04/26/2025 FINDINGS: Enteric tube tip terminates over the gastric antrum Post surgical changes of recent liver transplant in the right upperquadrant There is diffuse gaseous distention of small and large bowel loops in apattern suggesting ileus. Small stool burden. Supine positioning limitsevaluation for free air; however, no large volume pneumoperitoneum isseen. No acute osseous abnormalities are identified. IMPRESSION: Diffuse gaseous distention of small and large bowel loops in a patternsuggesting ileus. Report Verified by: Seble Crawford MD at 04/27/2025 7:58 AM EST Giovanny Louis MD IMG DIAGNOSTIC IMAGING ORDERAB LES Final Result * POC Glucose Monitoring Device (04/27/2025 5:03 AM EST) POC Glucose Monitoring Device 83 70 - 100 mg/dL 04/27/2025 5:05 AM EST [facility] Blood 04/27/2025 5:03 AM EST 04/27/2025 5:05 AM EST Ludin Jose MD POINT OF CARE TEST ORDERABLES Fi nal Result Performing Organization Address [facility] Co de Phone Number [facility] [address] [place] [address] * (ABNORMAL) POC Glucose Monitoring Device (04/27/2025 5:01 AM EST) POC Glucose Monitoring Device 316(H) 70 - 100 mg/dL 04/27/2025 5:03 AM EST [facility] Blood 04/27/2025 5:01 AM EST 04/27/2025 5:03 AM EST Ludin Jose MD POINT OF CARE TEST ORDERABLES Fi nal Result Performing Organization Address [facility] Co de Phone Number [facility] [address] * (ABNORMAL) POC Glucose Monitoring Device (04/27/2025 5:00 AM EST) [facility] POC Glucose Monitoring Device 307(H) 70 - 100 mg/dL 04/27/2025 5:03 AM EST [facility] Blood 04/27/2025 5:00 AM EST 04/27/2025 5:03 AM EST Ludin Jose MD POINT OF CARE TEST ORDERABLES Fi nal Result Performing Organization Address [facility] Co de Phone Number [facility] [address] [place] [address] * Tacrolimus level (04/27/2025 4:56 AM EST) [facility] Tacrolimus (LC-MS) 6.3 3.0 - 15.0 ng/mL 04/27/2025 10:58 AM EST [facility] Comment:Performed via liquid chromatography tandem mass spectrometry. Detection limit: 1 ng/mL. Individual target concentrations may vary due to target organ and time after transplant. This test has been developed and its performance characteristics determined by [facility] which is certified under the Clinical Laboratory Improvement Amendment of 1988 (CLIA-88) to perform high complexity testing. The test has not been cleared or approved by the US Food and Drug Administration (FDA). The FDA has determined that such clearance is not necessary. The test should be used for clinical purposes and is not regarded as investigational. Whole Blood 04/27/2025 4:56 AM EST 04/27/2025 5:42 AM EST Gloria Chen MD LAB BLOOD ORDERABLES Final Resul t Performing Organization Address [facility] Co de Phone Number [facility] [address] [facility]. [address] * (ABNORMAL) CBC (04/27/2025 4:56 AM EST) [facility] WBC 3.5(L) 3.8 - 10.8 10E3/uL 04/27/2025 5:52 AM EST [facility] RBC 2.41(L) 3.80 - 5.10 10E6/uL 04/27/2025 5:52 AM EST [facility] Hemoglobin 7.6(L) 11.7 - 15.5 g/dL 04/27/2025 5:52 AM EST [facility] Hematocrit 21.7(L) 35.0 - 45.0 % 04/27/2025 5:52 AM EST [facility] MCV 90.2 80.0 - 100.0 fL 04/27/2025 5:52 AM EST [facility] MCH 31.4 27.0 - 33.0 pg 04/27/2025 5:52 AM EST [facility] MCHC 34.8 32.0 - 36.0 g/dL 04/27/2025 5:52 AM EST [facility] RDW 18.3(H) 11.0 - 15.0 % 04/27/2025 5:52 AM EST [facility] Platelets 62(L) 140 - 400 10E3/uL 04/27/2025 5:52 AM [facility] MPV 10.2 7.5 - 11.5 fL 04/27/2025 5:52 AM EST [facility] Whole Blood 04/27/2025 4:56 AM EST 04/27/2025 5:42 AM EST Gloria Chen MD LAB BLOOD ORDERABLES Final Resul t Performing Organization Address City/[facility] Co de Phone Number [facility] [address] [place] [address]. [address] * Phosphorus (04/27/2025 3:01 AM EST) Phosphorus 2.4 2.1 - 4.7 mg/dL 04/27/2025 3:30 AM EST [facility] Plasma 04/27/2025 3:01 AM EST 04/27/2025 3:09 AM EST Gloria Chen MD LAB BLOOD ORDERABLES Final Resul t Performing Organization Address City/[facility]/ZIP Co de Phone Number [facility] [address] [facility]. [address] * Magnesium (04/27/2025 3:01 AM EST) Magnesium 1.7 1.5 - 2.5 mg/dL 04/27/2025 3:30 AM EST [facility] Plasma 04/27/2025 3:01 AM EST 04/27/2025 3:09 AM EST Gloria Chen MD LAB BLOOD ORDERABLES Final Resul t Performing Organization Address [facility] Co de Phone Number [facility] [address] [facility]. [address] * (ABNORMAL) Hepatic Function Panel (04/27/2025 3:01 AM EST) Total Bilirubin 4.0(H) 0.0 - 1.5 mg/dL 04/27/2025 3:30 AM EST [facility] Bilirubin, Direct 2.87(H) 0.00 - 0.40 mg/dL 04/27/2025 3:30 AM EST [facility] AST 74(H) 13 - 39 U/L 04/27/2025 3:30 AM EST [facility] ALT 104(H) 7 - 52 U/L 04/27/2025 3:30 AM EST [facility] Alkaline Phosphatase 342(H) 36 - 125 U/L 04/27/2025 3:30 AM EST [facility] Total Protein 3.7(L) 6.4 - 8.9 g/dL 04/27/2025 3:30 AM EST [facility] Albumin 2.1(L) 3.5 - 5.7 g/dL 04/27/2025 3:30 AM EST [facility] Bilirubin, Indirect 1.13(H) 0.00 - 1.10 mg/dL 04/27/2025 3:30 AM EST [facility] Plasma 04/27/2025 3:01 AM EST 04/27/2025 3:09 AM EST us Gloria Chen MD LAB BLOOD ORDERABLES Final Resul t Performing Organization Address City/[facility]/ZIP Co de Phone Number [facility] [address] [place] [address] * (ABNORMAL) Basic metabolic panel (04/27/2025 3:01 AM EST) [facility] Sodium 138 133 - 146 mmol/L 04/27/2025 3:30 AM [facility] Potassium 4.2 3.5 - 5.3 mmol/L 04/27/2025 3:30 AM [facility] Chloride 112(H) 98 - 110 mmol/L 04/27/2025 3:30 AM [facility] CO2 24 21 - 33 mmol/L 04/27/2025 3:30 AM [facility] Comment:High lactate dehydro genase concentrations in patient samples may cause falsely increased bicarbonate results. If markedly elevated LDH is observed or suspected, please assess results in conjunction with patient`s clinical presentation. In cases of discrepant results, consider evaluating CO2 in with a blood gas order. Anion Gap 2(L) 3 - 16 mmol/L 04/27/2025 3:30 AM [facility] BUN 17 7 - 25 mg/dL 04/27/2025 3:30 AM [facility] Creatinine 0.57(L) 0.60 - 1.30 mg/dL 04/27/2025 3:30 AM [facility] Glucose 224(H) 70 - 100 mg/dL 04/27/2025 3:30 AM [facility] Calcium 7.0(L) 8.6 - 10.3 mg/dL 04/27/2025 3:30 AM [facility] Osmolality, Calculated 295 278 - 305 mOsm/kg 04/27/2025 3:30 AM [facility] EGFR >90 04/27/2025 3:30 AM [facility] Comment: As of 2021, the [...] renal disease. For additional information: www.[email or web address].org Plasma 04/27/2025 3:01 AM EST 04/27/2025 3:09 AM EST us Gloria Chen MD LAB BLOOD ORDERABLES Final Resul t [facility] [address] [place] [address], [facility] * (ABNORMAL) CBC (04/26/2025 11:55 PM EST) WBC 3.4(L) 3.8 - 10.8 10E3/uL 04/27/2025 12:34 AM EST [facility] RBC 2.40(L) 3.80 - 5.10 10E6/uL 04/27/2025 12:34 AM [facility] Hemoglobin 7.3(L) 11.7 - 15.5 g/dL 04/27/2025 12:34 AM [facility] Hematocrit 22.5(L) 35.0 - 45.0 % 04/27/2025 12:34 AM [facility] MCV 93.8 80.0 - 100.0 fL 04/27/2025 12:34 AM [facility] MCH 30.6 27.0 - 33.0 pg 04/27/2025 12:34 AM [facility] MCHC 32.6 32.0 - 36.0 g/dL 04/27/2025 12:34 AM [facility] RDW 17.7(H) 11.0 - 15.0 % 04/27/2025 12:34 AM [facility] Platelets 61(L) 140 - 400 10E3/uL 04/27/2025 12:34 AM [facility] Comment:Specimen checked for clots. None detected. MPV 9.6 7.5 - 11.5 fL 04/27/2025 12:34 AM [facility] Whole Blood 04/26/2025 11:5 5 PM EST 04/27/2025 12:01 AM EST us Gloria Chen MD LAB BLOOD ORDERABLES Final Resul t Performing Organization Address City/[facility]/ZIP Co de Phone Number [facility] [address] [place] [address]. [address] * POC Glucose Monitoring Device (04/26/2025 10:50 PM EST) POC Glucose Monitoring Device 82 70 - 100 mg/dL 04/26/2025 10:51 PM EST [facility] Blood 04/26/2025 10:5 0 PM EST 04/26/2025 10:51 PM EST us Ludin Jose MD POINT OF CARE TEST ORDERABLES Fi nal Result Performing Organization Address [facility] Co de Phone Number [address] * Antibody Screen (04/26/2025 6:02 PM EST) Antibody Screen Negative 04/26/2025 6:50 PM EST [facility] Blood 04/26/2025 6:02 PM EST 04/26/2025 6:16 PM EST Narrative [facility] - 04/26/2025 6:52 PM EST Testing performed by [facility] Transfusion Service Gloria Chen MD BLOOD BANK TEST ORDERABLES Final Result Performing Organization Address City/[facility]/ZIP Co de Phone Number [address] * ABO/Rh (04/26/2025 6:02 PM EST) ABO Grouping O 04/26/2025 6:37 PM EST [facility] Rh Type Positive 04/26/2025 6:37 PM EST [facility] Blood 04/26/2025 6:02 PM EST 04/26/2025 6:16 PM EST us Gloria Chen MD BLOOD BANK TEST ORDERABLES Final Result [facility] [address] [facility]. [address] * POC Glucose Monitoring Device (04/26/2025 6:00 PM EST) POC Glucose Monitoring Device 82 70 - 100 mg/dL 04/26/2025 6:02 PM EST [facility] Blood 04/26/2025 6:00 PM EST 04/26/2025 6:02 PM EST us Ludin Jose MD POINT OF CARE TEST ORDERABLES Fi nal Result [facility] [address] [facility]. [address] * (ABNORMAL) CBC (04/26/2025 4:16 PM EST) Pathologist [facility] WBC 4.1 3.8 - 10.8 10E3/uL 04/26/2025 4:43 PM EST [facility] RBC 2.75(L) 3.80 - 5.10 10E6/uL 04/26/2025 4:43 PM EST [facility] Hemoglobin 8.5(L) 11.7 - 15.5 g/dL 04/26/2025 4:43 PM EST [facility] Hematocrit 24.6(L) 35.0 - 45.0 % 04/26/2025 4:43 PM EST [facility] MCV 89.4 80.0 - 100.0 fL 04/26/2025 4:43 PM EST [facility] MCH 31.0 27.0 - 33.0 pg 04/26/2025 4:43 PM EST [facility] MCHC 34.7 32.0 - 36.0 g/dL 04/26/2025 4:43 PM EST [facility] RDW 17.1(H) 11.0 - 15.0 % 04/26/2025 4:43 PM EST [facility] Platelets 76(L) 140 - 400 10E3/uL 04/26/2025 4:43 PM EST [facility] MPV 9.7 7.5 - 11.5 fL 04/26/2025 4:43 PM EST [facility] Whole Blood 04/26/2025 4:16 PM EST 04/26/2025 4:23 PM EST Gloria Chen MD LAB BLOOD ORDERABLES Final Resul t Performing Organization Address City/[facility]/ZIP Co de Phone Number [facility] [address] [facility]. [address] * Phosphorus (04/26/2025 4:16 PM EST) Phosphorus 3.0 2.1 - 4.7 mg/dL 04/26/2025 5:01 PM EST [facility] Plasma 04/26/2025 4:16 PM EST 04/26/2025 4:23 PM EST Gloria Chen MD LAB BLOOD ORDERABLES Final Resul t Performing Organization Address City/[facility]/ZIP Co de Phone Number [facility] [address] [facility]. [address] * Magnesium (04/26/2025 4:16 PM EST) Magnesium 1.8 1.5 - 2.5 mg/dL 04/26/2025 5:01 PM EST [facility] Plasma 04/26/2025 4:16 PM EST 04/26/2025 4:23 PM EST Gloria Chen MD LAB BLOOD ORDERABLES Final Resul t Performing Organization Address City/[facility] Co de Phone Number [facility] [address] [facility]. [address] * (ABNORMAL) Renal Function Panel w/EGFR (04/26/2025 4:16 PM EST) Sodium 143 133 - 146 mmol/L 04/26/2025 5:01 PM EST [facility] Potassium 4.0 3.5 - 5.3 mmol/L 04/26/2025 5:01 PM EST [facility] Chloride 113(H) 98 - 110 mmol/L 04/26/2025 5:01 PM EST [facility] CO2 23 21 - 33 mmol/L 04/26/2025 5:01 PM [facility] Comment:High lactate dehydro genase concentrations in patient samples may cause falsely increased bicarbonate results. If markedly elevated LDH is observed or suspected, please assess results in conjunction with patient`s clinical presentation. In cases of discrepant results, consider evaluating CO2 in with a blood gas order. Anion Gap 7 3 - 16 mmol/L 04/26/2025 5:01 PM EST [facility] BUN 21 7 - 25 mg/dL 04/26/2025 5:01 PM [facility] Creatinine 0.60 0.60 - 1.30 mg/dL 04/26/2025 5:01 PM [facility] Glucose 97 70 - 100 mg/dL 04/26/2025 5:01 PM [facility] Calcium 7.3(L) 8.6 - 10.3 mg/dL 04/26/2025 5:01 PM [facility] Phosphorus 3.0 2.1 - 4.7 mg/dL 04/26/2025 5:01 PM [facility] Albumin 2.3(L) 3.5 - 5.7 g/dL 04/26/2025 5:01 PM [facility] Osmolality, Calculated 299 278 - 305 mOsm/kg 04/26/2025 5:01 PM [facility] EGFR >90 04/26/2025 5:01 PM [facility] Comment: As of 2021, the [...] renal disease. For additional information: www.[email or web address].org Plasma 04/26/2025 4:16 PM EST 04/26/2025 4:23 PM EST us Gloria Chen MD LAB BLOOD ORDERABLES Final Resul t [facility] [address] [facility]. [address] * (ABNORMAL) POC Glucose Monitoring Device (04/26/2025 12:50 PM EST) POC Glucose Monitoring Device 113(H) 70 - 100 mg/dL 04/26/2025 12:51 PM EST [facility] Blood 04/26/2025 12:5 0 PM EST 04/26/2025 12:50 PM EST us Ludin Jose MD POINT OF CARE TEST ORDERABLES Fi nal Result Performing Organization Address [facility] Co de Phone Number [facility] [address] [facility]. [address] * VAS Venous Duplex Upper Right (04/26/2025 11:55 AM EST) Anatomical Region Laterality Modality Vascular Ultrasound 04/26/2025 12:0 2 PM EST Narrative 04/26/2025 12:02 PM EST Right: The right basilic and ulnar veins were not visualized due to edema. The right brachial vein was not fully visualized due to line and bandaging. Evidence for acute occluding SVT, measuring 16 cm, is seen in the right cephalic vein, in the forearm. There is no other evidence for DVT/SVT in the remaining limited right upper extremity. No evidence for DVT in the contralateral mid subclavian vein. Conclusions: Acute, occluding SVT right cephalic vein.No other evidence of DVT or SVT in the remaining limited right upper extremity. Procedure: Upper extremity venous imaging was performed using real time B-mode imaging in the longitudinal and the transverse plane with and without compression. Visualization routinely includes the internal jugular vein, subclavian vein, axillary vein, brachial vein, cephalic vein, basilic vein, and selectively the radial and ulnar vein. Color and spectral Doppler were used to document flow characteristics from the IJV, subclavian vein, and axillary vein to evaluate for the presence or absence of spontaneous flow. Augmentation maneuvers were performed as needed to document venous flow response. On unilateral studies, the contralateral subclavian and/or internal jugular veins are routinely examined. Critical Findings: Critical results were called to Ludin Rodas RN on 04/26/25 at 11:45. The results were read back and verified. Procedure Note Joey Mobley MD - 04/26/2025 Right: The right basilic and ulnar veins were not visualized due to edema.The right brachial vein was not fully visualized due to line andbandaging. Evidence for acute occluding SVT, measuring 16 cm, is seen inthe right cephalic vein, in the forearm. There is no other evidence forDVT/SVT in the remaining limited right upper extremity. No evidence forDVT in the contralateral mid subclavian vein. Conclusions: Acute, occluding SVT right cephalic vein.No other evidence ofDVT or SVT in the remaining limited right upper extremity. Procedure: Upper extremity venous imaging was performed using real timeB-mode imaging in the longitudinal and the transverse plane with andwithout compression. Visualization routinely includes the internaljugular vein, subclavian vein, axillary vein, brachial vein, cephalicvein, basilic vein, and selectively the radial and ulnar vein. Color andspectral Doppler were used to document flow characteristics from the IJV,subclavian vein, and axillary vein to evaluate for the presence or absenceof spontaneous flow. Augmentation maneuvers were performed as needed todocument venous flow response. On unilateral studies, the contralateralsubclavian and/or internal jugular veins are routinely examined. Critical Findings: Critical results were called to Ludin Rodas RN on04/26/25 at 11:45. The results were read back and verified. us Julius Becerra MD CV VASCULAR ORDERABLES Final Res ult * X-ray Portable Abdomen AP view (04/26/2025 8:57 AM EST) Anatomical Region Laterality Modality Abdomen Radiographic Radha ging 04/26/2025 8:57 AM EST Impressions 04/26/2025 8:59 AM EST IMPRESSION: 1. Mild distention of the bowel which may represent underlying postsurgical ileus. Report Verified by: Claude Yuen MD at 04/26/2025 8:59 AM EST Narrative 04/26/2025 8:59 AM EST EXAM: XR PORTABLE ABDOMEN AP INDICATION: distended TECHNIQUE: AP portable supine COMPARISON: 04/23/2025. FINDINGS: NG tube has been advanced, with the tip now in the gastric antrum. The stomach is nondistended. Postsurgical changes in the abdomen are stable. Several surgical drains are present in the right upper quadrant. Mild distention of the small and large bowel, similar to prior imaging. Procedure Note Claude Yuen MD - 04/26/2025 EXAM: XR PORTABLE ABDOMEN AP INDICATION: distended TECHNIQUE: AP portable supine COMPARISON: 04/23/2025. FINDINGS: NG tube has been advanced, with the tip now in the gastric antrum. Thestomach is nondistended. Postsurgical changes in the abdomen are stable. Several surgical drainsare present in the right upper quadrant. Mild distention of the small and large bowel, similar to prior imaging. IMPRESSION: 1. Mild distention of the bowel which may represent underlyingpostsurgical ileus. Report Verified by: Claude Yuen MD at 04/26/2025 8:59 AM EST Yane Wheatley [facility] IM DIAGNOSTIC IMAGING OR DERABLES Final Result * (ABNORMAL) CBC (04/26/2025 7:47 AM EST) WBC 5.5 3.8 - 10.8 10E3/uL 04/26/2025 8:06 AM EST [facility] RBC 2.89(L) 3.80 - 5.10 10E6/uL 04/26/2025 8:06 AM EST [facility] Hemoglobin 8.9(L) 11.7 - 15.5 g/dL 04/26/2025 8:06 AM EST [facility] Hematocrit 25.8(L) 35.0 - 45.0 % 04/26/2025 8:06 AM EST [facility] MCV 89.3 80.0 - 100.0 fL 04/26/2025 8:06 AM EST [facility] MCH 30.9 27.0 - 33.0 pg 04/26/2025 8:06 AM EST [facility] MCHC 34.6 32.0 - 36.0 g/dL 04/26/2025 8:06 AM EST [facility] RDW 17.0(H) 11.0 - 15.0 % 04/26/2025 8:06 AM EST [facility] Platelets 70(L) 140 - 400 10E3/uL 04/26/2025 8:06 AM EST [facility] MPV 9.8 7.5 - 11.5 fL 04/26/2025 8:06 AM EST [facility] Whole Blood 04/26/2025 7:47 AM EST 04/26/2025 7:54 AM EST Gloria Chen MD LAB BLOOD ORDERABLES Final Resul t [facility] [address] [place] [address], [facility] * Tacrolimus level (04/26/2025 7:47 AM EST) Tacrolimus (LC-MS) 7.1 3.0 - 15.0 ng/mL 04/26/2025 11:55 AM EST [facility] Comment:Performed via liquid chromatography tandem mass spectrometry. Detection limit: 1 ng/mL. Individual target concentrations may vary due to target organ and time after transplant. This test has been developed and its performance characteristics determined by [facility] which is certified under the Clinical Laboratory Improvement Amendment of 1988 (CLIA-88) to perform high complexity testing. The test has not been cleared or approved by the US Food and Drug Administration (FDA). The FDA has determined that such clearance is not necessary. The test should be used for clinical purposes and is not regarded as investigational. Whole Blood 04/26/2025 7:47 AM EST 04/26/2025 7:53 AM EST us Gloria Chen MD LAB BLOOD ORDERABLES Final Resul t [facility] [address] [facility]. [address] * POC Glucose Monitoring Device (04/26/2025 7:44 AM EST) Pathologist [facility] POC Glucose Monitoring Device 76 70 - 100 mg/dL 04/26/2025 7:45 AM EST [facility] Blood 04/26/2025 7:44 AM EST 04/26/2025 7:45 AM EST us Ludin Jose MD POINT OF CARE TEST ORDERABLES Fi nal Result Performing Organization Address [facility] Co de Phone Number [facility] [address] [facility]. [address] * Magnesium (04/26/2025 6:09 AM EST) Pathologist [facility] Magnesium 2.1 1.5 - 2.5 mg/dL 04/26/2025 7:01 AM EST [facility] Plasma 04/26/2025 6:09 AM EST 04/26/2025 6:18 AM EST us Gloria Chen MD LAB BLOOD ORDERABLES Final Resul t Performing Organization Address [facility] Co de Phone Number [facility] [address] [facility]. [address] * (ABNORMAL) Renal Function Panel w/EGFR (04/26/2025 6:09 AM EST) Sodium 142 133 - 146 mmol/L 04/26/2025 7:01 AM EST [facility] Potassium 4.0 3.5 - 5.3 mmol/L 04/26/2025 7:01 AM EST [facility] Chloride 114(H) 98 - 110 mmol/L 04/26/2025 7:01 AM EST [facility] CO2 22 21 - 33 mmol/L 04/26/2025 7:01 AM EST [facility] Comment:High lactate dehydro genase concentrations in patient samples may cause falsely increased bicarbonate results. If markedly elevated LDH is observed or suspected, please assess results in conjunction with patient`s clinical presentation. In cases of discrepant results, consider evaluating CO2 in with a blood gas order. Anion Gap 6 3 - 16 mmol/L 04/26/2025 7:01 AM [facility] BUN 23 7 - 25 mg/dL 04/26/2025 7:01 AM [facility] Creatinine 0.51(L) 0.60 - 1.30 mg/dL 04/26/2025 7:01 AM [facility] Glucose 75 70 - 100 mg/dL 04/26/2025 7:01 AM [facility] Calcium 7.3(L) 8.6 - 10.3 mg/dL 04/26/2025 7:01 AM [facility] Phosphorus 1.8(L) 2.1 - 4.7 mg/dL 04/26/2025 7:01 AM [facility] Albumin 2.3(L) 3.5 - 5.7 g/dL 04/26/2025 7:01 AM [facility] Osmolality, Calculated 296 278 - 305 mOsm/kg 04/26/2025 7:01 AM [facility] EGFR >90 04/26/2025 7:01 AM [facility] Comment: As of 2021, the [...] renal disease. For additional information: [email or web address] Plasma 04/26/2025 6:09 AM EST 04/26/2025 6:18 AM EST us Gloria Chen MD LAB BLOOD ORDERABLES Final Resul t Performing Organization Address [facility] de Phone Number [facility] [address] * (ABNORMAL) Hepatic Function Panel (04/26/2025 6:09 AM EST) Total Bilirubin 4.6(H) 0.0 - 1.5 mg/dL 04/26/2025 7:01 AM EST [facility] Bilirubin, Direct 3.20(H) 0.00 - 0.40 mg/dL 04/26/2025 7:01 AM EST [facility] AST 78(H) 13 - 39 U/L 04/26/2025 7:01 AM EST [facility] ALT 117(H) 7 - 52 U/L 04/26/2025 7:01 AM EST [facility] Alkaline Phosphatase 299(H) 36 - 125 U/L 04/26/2025 7:01 AM EST [facility] Total Protein 3.9(L) 6.4 - 8.9 g/dL 04/26/2025 7:01 AM EST [facility] Albumin 2.3(L) 3.5 - 5.7 g/dL 04/26/2025 7:01 AM EST [facility] Bilirubin, Indirect 1.40(H) 0.00 - 1.10 mg/dL 04/26/2025 7:01 AM EST [facility] Plasma 04/26/2025 6:09 AM EST 04/26/2025 6:18 AM EST us Gloria Chen MD LAB BLOOD ORDERABLES Final Resul t Performing Organization Address [facility] Co de Phone Number [facility] [address] [facility]. [address] * POC Glucose Monitoring Device (04/26/2025 2:19 AM EST) POC Glucose Monitoring Device 85 70 - 100 mg/dL 04/26/2025 2:20 AM EST [facility] Blood 04/26/2025 2:19 AM EST 04/26/2025 2:20 AM EST Ludin Jose MD POINT OF CARE TEST ORDERABLES Fi nal Result Performing Organization Address [facility] de Phone Number [address] * Calcium Free, Serum (04/26/2025 12:27 AM EST) Free Calcium, Ser 4.46 4.40 - 5.40 mg/dL 04/26/2025 12:54 AM EST [facility] Comment:Free calcium levels vary inversely with pH by approximately 5% for each 0.1 unit of pH change. Assay results have been normalized to pH = 7.40. Serum 04/26/2025 12:2 7 AM EST 04/26/2025 12:36 AM EST Narrative [facility] - 04/26/2025 12:54 AM EST This test has been developed and its performance characteristics determined by [facility] which is certified under the Clinical Laboratory Improvement Amendment of 1988 (CLIA-88) to perform high complexity testing. The test has not been cleared or approved by the US Food and Drug Administration (FDA). The FDA has determined that such clearance is not necessary. The test should be used for clinical purposes and is not regarded as investigational. Julius Becerra MD LAB BLOOD ORDERABLES Final Resul t Performing Organization Address [facility] Co de Phone Number [facility] [address] [place] [address] * (ABNORMAL) POC Glucose Monitoring Device (04/26/2025 12:13 AM EST) POC Glucose Monitoring Device 60(L) 70 - 100 mg/dL 04/26/2025 12:14 AM EST [facility] Blood 04/26/2025 12:1 3 AM EST 04/26/2025 12:14 AM EST Ludin Jose MD POINT OF CARE TEST ORDERABLES Fi nal Result [facility] [address] [facility]. [address] * Magnesium (04/26/2025 12:12 AM EST) Magnesium 2.2 1.5 - 2.5 mg/dL 04/26/2025 1:04 AM EST [facility] Plasma 04/26/2025 12:1 2 AM EST 04/26/2025 12:20 AM EST us Gloria Chen MD LAB BLOOD ORDERABLES Final Resul t Performing Organization Address City/[facility]/ZIP Co de Phone Number [facility] [address] [facility]. [address] * (ABNORMAL) Renal Function Panel w/EGFR (04/26/2025 12:12 AM EST) Sodium 141 133 - 146 mmol/L 04/26/2025 1:04 AM [facility] Potassium 4.3 3.5 - 5.3 mmol/L 04/26/2025 1:04 AM [facility] Chloride 113(H) 98 - 110 mmol/L 04/26/2025 1:04 AM [facility] CO2 22 21 - 33 mmol/L 04/26/2025 1:04 AM [facility] Comment:High lactate dehydro genase concentrations in patient samples may cause falsely increased bicarbonate results. If markedly elevated LDH is observed or suspected, please assess results in conjunction with patient`s clinical presentation. In cases of discrepant results, consider evaluating CO2 in with a blood gas order. Anion Gap 6 3 - 16 mmol/L 04/26/2025 1:04 AM EST [facility] BUN 26(H) 7 - 25 mg/dL 04/26/2025 1:04 AM [facility] Creatinine 0.53(L) 0.60 - 1.30 mg/dL 04/26/2025 1:04 AM [facility] Glucose 60(L) 70 - 100 mg/dL 04/26/2025 1:04 AM [facility] Calcium 7.5(L) 8.6 - 10.3 mg/dL 04/26/2025 1:04 AM EST [facility] Phosphorus 2.6 2.1 - 4.7 mg/dL 04/26/2025 1:04 AM EST [facility] Albumin 2.3(L) 3.5 - 5.7 g/dL 04/26/2025 1:04 AM EST [facility] Osmolality, Calculated 295 278 - 305 mOsm/kg 04/26/2025 1:04 AM EST [facility] EGFR >90 04/26/2025 1:04 AM EST [facility] Comment: As of 2021, the estimated [...] renal disease. For additional information: www.[email or web address] Plasma 04/26/2025 12:1 2 AM EST 04/26/2025 12:20 AM EST us Gloria Chen MD LAB BLOOD ORDERABLES Final Resul t [facility] [address] [place] [address], [facility] * (ABNORMAL) CBC (04/25/2025 9:01 PM EST) WBC 5.2 3.8 - 10.8 10E3/uL 04/25/2025 9:24 PM EST [facility] RBC 2.69(L) 3.80 - 5.10 10E6/uL 04/25/2025 9:24 PM EST [facility] Hemoglobin 8.3(L) 11.7 - 15.5 g/dL 04/25/2025 9:24 PM EST [facility] Hematocrit 24.0(L) 35.0 - 45.0 % 04/25/2025 9:24 PM EST [facility] MCV 89.5 80.0 - 100.0 fL 04/25/2025 9:24 PM EST [facility] MCH 30.8 27.0 - 33.0 pg 04/25/2025 9:24 PM EST [facility] MCHC 34.4 32.0 - 36.0 g/dL 04/25/2025 9:24 PM EST [facility] RDW 16.6(H) 11.0 - 15.0 % 04/25/2025 9:24 PM EST [facility] Platelets 59(L) 140 - 400 10E3/uL 04/25/2025 9:24 PM EST [facility] MPV 9.4 7.5 - 11.5 fL 04/25/2025 9:24 PM EST [facility] Whole Blood 04/25/2025 9:01 PM EST 04/25/2025 9:16 PM EST us Gloria Chen MD LAB BLOOD ORDERABLES Final Resul t Performing Organization Address City/[facility]/ZIP Co de Phone Number [facility] [address] [facility]. [address] * Magnesium (04/25/2025 5:40 PM EST) Magnesium 2.2 1.5 - 2.5 mg/dL 04/25/2025 6:17 PM EST [facility] Plasma 04/25/2025 5:40 PM EST 04/25/2025 5:48 PM EST Gloria Chen MD LAB BLOOD ORDERABLES Final Resul t Performing Organization Address City/[facility]/ZIP Co de Phone Number [facility] [address] [place] [address] * (ABNORMAL) Renal Function Panel w/EGFR (04/25/2025 5:40 PM EST) Sodium 143 133 - 146 mmol/L 04/25/2025 6:17 PM [facility] Potassium 4.4 3.5 - 5.3 mmol/L 04/25/2025 6:17 PM [facility] Chloride 113(H) 98 - 110 mmol/L 04/25/2025 6:17 PM [facility] CO2 22 21 - 33 mmol/L 04/25/2025 6:17 PM [facility] Comment:High lactate dehydro genase concentrations in patient samples may cause falsely increased bicarbonate results. If markedly elevated LDH is observed or suspected, please assess results in conjunction with patient`s clinical presentation. In cases of discrepant results, consider evaluating CO2 in with a blood gas order. Anion Gap 8 3 - 16 mmol/L 04/25/2025 6:17 PM [facility] BUN 29(H) 7 - 25 mg/dL 04/25/2025 6:17 PM [facility] Creatinine 0.59(L) 0.60 - 1.30 mg/dL 04/25/2025 6:17 PM [facility] Glucose 61(L) 70 - 100 mg/dL 04/25/2025 6:17 PM [facility] Calcium 6.9(L) 8.6 - 10.3 mg/dL 04/25/2025 6:17 PM [facility] Phosphorus 2.7 2.1 - 4.7 mg/dL 04/25/2025 6:17 PM [facility] Albumin 2.3(L) 3.5 - 5.7 g/dL 04/25/2025 6:17 PM [facility] Osmolality, Calculated 300 278 - 305 mOsm/kg 04/25/2025 6:17 PM [facility] EGFR >90 04/25/2025 6:17 PM [facility] Comment: As of 2021, the [...] Chato [place], Suzy [place], Jyoti [place], Nas LINARES, et al. A Unifying Approach for GFR Estimation: Recommendations of the NKF-ASN Task Force on Reassessing the inclusion of Race in Diagnosing Kidney Disease. Am J Kidney Dis. 2020. GFR is estimated using creatinine, age, and sex. Patient's values should be interpreted as a trend. Below 90 mL/min/1.73m2, the patient may have renal disease. For additional information: www.[email or web address].org Plasma 04/25/2025 5:40 PM EST 04/25/2025 5:48 PM EST Gloria Chen MD LAB BLOOD ORDERABLES Final Resul t Performing Organization Address [facility] Co de Phone Number [facility] [address] [facility]. [address] * Magnesium (04/25/2025 11:34 AM EST) Magnesium 2.3 1.5 - 2.5 mg/dL 04/25/2025 12:25 PM EST [facility] Plasma 04/25/2025 11:3 4 AM EST 04/25/2025 11:49 AM EST Gloria Chen MD LAB BLOOD ORDERABLES Final Resul t Performing Organization Address City/[facility] Co de Phone Number [facility] [address] [facility]. [address] * (ABNORMAL) Renal Function Panel w/EGFR (04/25/2025 11:34 AM EST) Sodium 143 133 - 146 mmol/L 04/25/2025 12:25 PM EST [facility] Potassium 4.4 3.5 - 5.3 mmol/L 04/25/2025 12:25 PM EST [facility] Chloride 114(H) 98 - 110 mmol/L 04/25/2025 12:25 PM EST [facility] CO2 21 21 - 33 mmol/L 04/25/2025 12:25 PM EST [facility] Comment:High lactate dehydro genase concentrations in patient samples may cause falsely increased bicarbonate results. If markedly elevated LDH is observed or suspected, please assess results in conjunction with patient`s clinical presentation. In cases of discrepant results, consider evaluating CO2 in with a blood gas order. Anion Gap 8 3 - 16 mmol/L 04/25/2025 12:25 PM EST [facility] BUN 31(H) 7 - 25 mg/dL 04/25/2025 12:25 PM [facility] Creatinine 0.66 0.60 - 1.30 mg/dL 04/25/2025 12:25 PM [facility] Glucose 74 70 - 100 mg/dL 04/25/2025 12:25 PM [facility] Calcium 7.1(L) 8.6 - 10.3 mg/dL 04/25/2025 12:25 PM [facility] Phosphorus 2.0(L) 2.1 - 4.7 mg/dL 04/25/2025 12:25 PM [facility] Albumin 2.3(L) 3.5 - 5.7 g/dL 04/25/2025 12:25 PM [facility] Osmolality, Calculated 301 278 - 305 mOsm/kg 04/25/2025 12:25 PM [facility] EGFR >90 04/25/2025 12:25 PM [facility] Comment: As of 2021, the [...] renal disease. For additional information: www.[email or web address] Plasma 04/25/2025 11:3 4 AM EST 04/25/2025 11:49 AM EST us Gloria Chen MD LAB BLOOD ORDERABLES Final Resul t [facility] [address] [place] [address], [facility] * US Duplex [id number] Comp (04/25/2025 10:36 AM EST) Anatomical Region Laterality Modality Abdomen, Pelvis, Testes, Vascular Ultrasound 04/25/2025 9:37 AM EST Impressions 04/25/2025 11:02 AM EST IMPRESSION: RIGHT UPPER QUADRANT Normal appearance of the right liver allograft with a small amount of subhepatic fluid.. LIVER DOPPLER Patent hepatic vasculature.. Report Verified by: Mark Pittman MD at 04/25/2025 11:02 AM EST Narrative 04/25/2025 11:02 AM EST EXAM: US ABDOMEN LIMITED EXAM: US DUPLEX [id number] COMPLETE INDICATION: Liver Transplant DATE: 04/25/2025 9:37 AM EST COMPARISON: April 23, 2025 and prior TECHNIQUE: Grayscale imaging was performed with attention to the right upper quadrant; color and spectral (duplex) Doppler analysis of the hepatic vasculature was also performed. FINDINGS: Liver: Normal grayscale appearance of the right liver allograft. No focal lesions. Biliary/CBD: No biliary dilatation evident. Common duct not measured. Gallbladder: Surgically absent.. Pancreas: Not visualized. Right kidney: 11 cm in length. Normal parenchymal echogenicity. No hydronephrosis. Other: Small volume subhepatic fluid. DOPPLER: Hepatic Veins: Patent right and middle hepatic veins with antegrade flow. Portal Veins: Patent portal vein with antegrade flow. Hepatic Arteries: Patent with antegrade flow. Resistive indices range from 0.51- 0.59 Procedure Note Mark Pittman MD - 04/25/2025 EXAM: US ABDOMEN LIMITED EXAM: US DUPLEX [id number] COMPLETE INDICATION: Liver Transplant DATE: 04/25/2025 9:37 AM EST COMPARISON: April 23, 2025 and prior TECHNIQUE: Grayscale imaging was performed with attention to the rightupper quadrant; color and spectral (duplex) Doppler analysis of thehepatic vasculature was also performed. FINDINGS: Liver: Normal grayscale appearance of the right liver allograft. No focallesions. Biliary/CBD: No biliary dilatation evident. Common duct not measured. Gallbladder: Surgically absent.. Pancreas: Not visualized. Right kidney: 11 cm in length. Normal parenchymal echogenicity. Nohydronephrosis. Other: Small volume subhepatic fluid. DOPPLER: Hepatic Veins: Patent right and middle hepatic veins with antegradeflow. Portal Veins: Patent portal vein with antegrade flow. Hepatic Arteries: Patent with antegrade flow. Resistive indices range from0.51- 0.59 IMPRESSION: RIGHT UPPER QUADRANT Normal appearance of the right liver allograft with a small amount ofsubhepatic fluid.. LIVER DOPPLER Patent hepatic vasculature.. Report Verified by: Mark Pittman MD at 04/25/2025 11:02 AM EST us Talita Pena MD IMG US ORDERABLES Final Resul t * US Abdomen Limited (04/25/2025 10:36 AM EST) Anatomical Region Laterality Modality Abdomen, Pelvis Ultrasound 04/25/2025 9:37 AM EST Impressions 04/25/2025 11:02 AM EST IMPRESSION: RIGHT UPPER QUADRANT Normal appearance of the right liver allograft with a small amount of subhepatic fluid.. LIVER DOPPLER Patent hepatic vasculature.. Report Verified by: Mark Pittman MD at 04/25/2025 11:02 AM EST Narrative 04/25/2025 11:02 AM EST EXAM: US ABDOMEN LIMITED EXAM: US DUPLEX [id number] COMPLETE INDICATION: Liver Transplant DATE: 04/25/2025 9:37 AM EST COMPARISON: April 23, 2025 and prior TECHNIQUE: Grayscale imaging was performed with attention to the right upper quadrant; color and spectral (duplex) Doppler analysis of the hepatic vasculature was also performed. FINDINGS: Liver: Normal grayscale appearance of the right liver allograft. No focal lesions. Biliary/CBD: No biliary dilatation evident. Common duct not measured. Gallbladder: Surgically absent.. Pancreas: Not visualized. Right kidney: 11 cm in length. Normal parenchymal echogenicity. No hydronephrosis. Other: Small volume subhepatic fluid. DOPPLER: Hepatic Veins: Patent right and middle hepatic veins with antegrade flow. Portal Veins: Patent portal vein with antegrade flow. Hepatic Arteries: Patent with antegrade flow. Resistive indices range from 0.51- 0.59 Procedure Note Mark Pittman MD - 04/25/2025 EXAM: US ABDOMEN LIMITED EXAM: US DUPLEX [id number] COMPLETE INDICATION: Liver Transplant DATE: 04/25/2025 9:37 AM EST COMPARISON: April 23, 2025 and prior TECHNIQUE: Grayscale imaging was performed with attention to the rightupper quadrant; color and spectral (duplex) Doppler analysis of thehepatic vasculature was also performed. FINDINGS: Liver: Normal grayscale appearance of the right liver allograft. No focallesions. Biliary/CBD: No biliary dilatation evident. Common duct not measured. Gallbladder: Surgically absent.. Pancreas: Not visualized. Right kidney: 11 cm in length. Normal parenchymal echogenicity. Nohydronephrosis. Other: Small volume subhepatic fluid. DOPPLER: Hepatic Veins: Patent right and middle hepatic veins with antegradeflow. Portal Veins: Patent portal vein with antegrade flow. Hepatic Arteries: Patent with antegrade flow. Resistive indices range from0.51- 0.59 IMPRESSION: RIGHT UPPER QUADRANT Normal appearance of the right liver allograft with a small amount ofsubhepatic fluid.. LIVER DOPPLER Patent hepatic vasculature.. Report Verified by: Mark Pittman MD at 04/25/2025 11:02 AM EST Talita Pena MD [facility] US ORDERABLES Final Resul t * (ABNORMAL) CBC (04/25/2025 8:13 AM EST) WBC 5.3 3.8 - 10.8 10E3/uL 04/25/2025 9:29 AM EST [facility] RBC 2.77(L) 3.80 - 5.10 10E6/uL 04/25/2025 9:29 AM EST [facility] Hemoglobin 8.5(L) 11.7 - 15.5 g/dL 04/25/2025 9:29 AM EST [facility] Hematocrit 24.6(L) 35.0 - 45.0 % 04/25/2025 9:29 AM EST [facility] MCV 88.7 80.0 - 100.0 fL 04/25/2025 9:29 AM EST [facility] MCH 30.6 27.0 - 33.0 pg 04/25/2025 9:29 AM EST [facility] MCHC 34.5 32.0 - 36.0 g/dL 04/25/2025 9:29 AM EST [facility] RDW 17.2(H) 11.0 - 15.0 % 04/25/2025 9:29 AM EST [facility] Platelets 44(L) 140 - 400 10E3/uL 04/25/2025 9:29 AM EST [facility] Comment:CNV MPV 10.2 7.5 - 11.5 fL 04/25/2025 9:29 AM EST [facility] Whole Blood 04/25/2025 8:13 AM EST 04/25/2025 8:25 AM EST us Gloria Chen MD LAB BLOOD ORDERABLES Final Resul t [facility] [address] * Lactic acid, ABG (04/25/2025 8:13 AM EST) Lactate, Art 0.6 0.5 - 1.6 mmol/L 04/25/2025 3:13 PM EST [facility] Blood, Arterial 04/25/2025 8 :13 AM EST 04/25/2025 3:11 PM EST us Lynn Gage DO LAB BLOOD ORDERABLES Final Resul t [facility] [address] * Calcium Ionized, Whole Blood (04/25/2025 8:13 AM EST) Free Calcium, WB 4.69 4.50 - 5.30 mg/dL 04/25/2025 3:13 PM EST [facility] Blood, Arterial 04/25/2025 8 :13 AM EST 04/25/2025 3:11 PM EST us Lynn Gage DO LAB BLOOD ORDERABLES Final Resul t [facility] [address] [place], [place] [address] * (ABNORMAL) Blood gas, arterial (04/25/2025 8:13 AM EST) O2 Sat, Arterial 100 04/25/2025 8:21 AM EST [facility] FIO2 1L 04/25/2025 8:21 AM EST [facility] pH, Arterial 7.39 7.35 - 7.45 04/25/2025 8:21 AM EST [facility] pCO2, Arterial 38 35 - 45 mm Hg 04/25/2025 8:21 AM [facility] pO2, Arterial 133(H) 80 - 100 mm Hg 04/25/2025 8:21 AM [facility] HCO3, Arterial 24 22 - 26 mmol/L 04/25/2025 8:21 AM [facility] CO2 Content,Arteri al 24 23 - 27 mmol/L 04/25/2025 8:21 AM [facility] Base Excess, Arterial -1.8 -2.0 - 3.0 mmol/L 04/25/2025 8:21 AM EST [facility] %HBO2, Arterial 96.5 95.0 - 98.0 % 04/25/2025 8:21 AM [facility] Carboxyhemoglo bin, Arterial 2.4 % 04/25/2025 8:21 AM EST [facility] Comment: CARBOXYHEMOGLOBIN (CO) REFERENCE RANGES: Non-Smokers: <2 % Smokers: <8 % TOXIC: >20 % Methemoglobin, Arterial 1.1 0.0 - 1.5 % 04/25/2025 8:21 AM EST [facility] Blood, Arterial 04/25/2025 8 :13 AM EST 04/25/2025 8:18 AM EST Lynn Gage DO LAB BLOOD ORDERABLES Final Resul t [facility] [address] [facility]. [address] * Tacrolimus level (04/25/2025 8:13 AM EST) Tacrolimus (LC-MS) 6.0 3.0 - 15.0 ng/mL 04/25/2025 1:48 PM EST [facility] Comment:Performed via liquid chromatography tandem mass spectrometry. Detection limit: 1 ng/mL. Individual target concentrations may vary due to target organ and time after transplant. This test has been developed and its performance characteristics determined by [facility] which is certified under the Clinical Laboratory Improvement Amendment of 1988 (CLIA-88) to perform high complexity testing. The test has not been cleared or approved by the US Food and Drug Administration (FDA). The FDA has determined that such clearance is not necessary. The test should be used for clinical purposes and is not regarded as investigational. Whole Blood 04/25/2025 8:13 AM EST 04/25/2025 8:25 AM EST Gloria Chen MD LAB BLOOD ORDERABLES Final Resul t Performing Organization Address [facility] Co de Phone Number [facility] [address] [place] [address]. [address] * Magnesium (04/25/2025 5:18 AM EST) Pathologist [facility] Magnesium 2.4 1.5 - 2.5 mg/dL 04/25/2025 5:43 AM EST [facility] Plasma 04/25/2025 5:18 AM EST 04/25/2025 5:22 AM EST Gloria Chen MD LAB BLOOD ORDERABLES Final Resul t [facility] [address] [facility]. [address] * (ABNORMAL) Renal Function Panel w/EGFR (04/25/2025 5:18 AM EST) Sodium 142 133 - 146 mmol/L 04/25/2025 5:43 AM [facility] Potassium 4.2 3.5 - 5.3 mmol/L 04/25/2025 5:43 AM [facility] Chloride 113(H) 98 - 110 mmol/L 04/25/2025 5:43 AM [facility] CO2 26 21 - 33 mmol/L 04/25/2025 5:43 AM [facility] Comment:High lactate dehydro genase concentrations in patient samples may cause falsely increased bicarbonate results. If markedly elevated LDH is observed or suspected, please assess results in conjunction with patient`s clinical presentation. In cases of discrepant results, consider evaluating CO2 in with a blood gas order. Anion Gap 3 3 - 16 mmol/L 04/25/2025 5:43 AM [facility] BUN 35(H) 7 - 25 mg/dL 04/25/2025 5:43 AM [facility] Creatinine 0.80 0.60 - 1.30 mg/dL 04/25/2025 5:43 AM [facility] Glucose 73 70 - 100 mg/dL 04/25/2025 5:43 AM [facility] Calcium 7.0(L) 8.6 - 10.3 mg/dL 04/25/2025 5:43 AM [facility] Phosphorus 2.8 2.1 - 4.7 mg/dL 04/25/2025 5:43 AM [facility] Albumin 2.3(L) 3.5 - 5.7 g/dL 04/25/2025 5:43 AM [facility] Osmolality, Calculated 301 278 - 305 mOsm/kg 04/25/2025 5:43 AM [facility] EGFR >90 04/25/2025 5:43 AM [facility] Comment: As of 2021, the [...] renal disease. For additional information: [email or web address] Plasma 04/25/2025 5:18 AM EST 04/25/2025 5:22 AM EST us Gloria Chen MD LAB BLOOD ORDERABLES Final Resul t [facility] [address] [place] [address], [facility] * (ABNORMAL) CBC (04/25/2025 5:18 AM EST) WBC 4.9 3.8 - 10.8 10E3/uL 04/25/2025 5:45 AM EST [facility] RBC 2.68(L) 3.80 - 5.10 10E6/uL 04/25/2025 5:45 AM EST [facility] Hemoglobin 8.1(L) 11.7 - 15.5 g/dL 04/25/2025 5:45 AM EST [facility] Hematocrit 23.6(L) 35.0 - 45.0 % 04/25/2025 5:45 AM EST [facility] MCV 88.2 80.0 - 100.0 fL 04/25/2025 5:45 AM EST [facility] MCH 30.2 27.0 - 33.0 pg 04/25/2025 5:45 AM EST [facility] MCHC 34.2 32.0 - 36.0 g/dL 04/25/2025 5:45 AM EST [facility] RDW 16.8(H) 11.0 - 15.0 % 04/25/2025 5:45 AM EST [facility] Platelets 42(L) 140 - 400 10E3/uL 04/25/2025 5:45 AM EST [facility] Comment: CNV Specimen checked for clots. None detected. MPV 9.1 7.5 - 11.5 fL 04/25/2025 5:45 AM EST [facility] Whole Blood 04/25/2025 5:18 AM EST 04/25/2025 5:22 AM EST Julius Becerra MD LAB BLOOD ORDERABLES Final Resul t Performing Organization Address City/[facility]/ZIP Co de Phone Number [facility] [address] * (ABNORMAL) Hepatic Function Panel (04/25/2025 5:18 AM EST) Total Bilirubin 4.6(H) 0.0 - 1.5 mg/dL 04/25/2025 5:43 AM EST [facility] Bilirubin, Direct 3.53(H) 0.00 - 0.40 mg/dL 04/25/2025 5:43 AM EST [facility] AST 100(H) 13 - 39 U/L 04/25/2025 5:43 AM EST [facility] ALT 128(H) 7 - 52 U/L 04/25/2025 5:43 AM EST [facility] Alkaline Phosphatase 182(H) 36 - 125 U/L 04/25/2025 5:43 AM [facility] Total Protein 3.8(L) 6.4 - 8.9 g/dL 04/25/2025 5:43 AM EST [facility] Albumin 2.3(L) 3.5 - 5.7 g/dL 04/25/2025 5:43 AM [facility] Bilirubin, Indirect 1.07 0.00 - 1.10 mg/dL 04/25/2025 5:43 AM EST [facility] Plasma 04/25/2025 5:18 AM EST 04/25/2025 5:22 AM EST us Gloria Chen MD LAB BLOOD ORDERABLES Final Resul t [facility] [address] [place] [address] * Protime-INR, STAT (04/25/2025 5:18 AM EST) Protime 14.3 12.1 - 15.1 seconds 04/25/2025 5:40 AM EST [facility] INR 1.1 0.9 - 1.1 04/25/2025 5:40 AM EST [facility] Comment: RECOMMENDED THERAPEUTIC RANGES USING INR : Stable oral anticoagulant therapy: 2.0 - 3.0 Mechanical prosthetic heart valve: 2.5 - 3.5 Recurrent acute myocardial infarction: 2.5 - 3.5 Plasma 04/25/2025 5:18 AM EST 04/25/2025 5:22 AM EST us Lynn Gage DO LAB BLOOD ORDERABLES Final Resul t Performing Organization Address City/[facility]/ZIP Co de Phone Number [facility] [address] [facility]. [address] * POC Glucose Monitoring Device (04/25/2025 5:17 AM EST) POC Glucose Monitoring Device 74 70 - 100 mg/dL 04/25/2025 5:19 AM EST [facility] Blood 04/25/2025 5:17 AM EST 04/25/2025 5:19 AM EST us Ludin Jose MD POINT OF CARE TEST ORDERABLES Fi nal Result Performing Organization Address City/[facility]/ZIP Co de Phone Number [facility] [address] [facility]. [address] * Magnesium (04/25/2025 12:05 AM EST) Magnesium 2.5 1.5 - 2.5 mg/dL 04/25/2025 1:02 AM EST [facility] Plasma 04/25/2025 12:0 5 AM EST 04/25/2025 12:09 AM EST us Gloria Chen MD LAB BLOOD ORDERABLES Final Resul t [facility] [address] * (ABNORMAL) Renal Function Panel w/EGFR (04/25/2025 12:05 AM EST) Sodium 142 133 - 146 mmol/L 04/25/2025 1:02 AM [facility] Potassium 4.5 3.5 - 5.3 mmol/L 04/25/2025 1:02 AM [facility] Chloride 112(H) 98 - 110 mmol/L 04/25/2025 1:02 AM [facility] CO2 25 21 - 33 mmol/L 04/25/2025 1:02 AM [facility] Comment:High lactate dehydro genase concentrations in patient samples may cause falsely increased bicarbonate results. If markedly elevated LDH is observed or suspected, please assess results in conjunction with patient`s clinical presentation. In cases of discrepant results, consider evaluating CO2 in with a blood gas order. Anion Gap 5 3 - 16 mmol/L 04/25/2025 1:02 AM [facility] BUN 34(H) 7 - 25 mg/dL 04/25/2025 1:02 AM [facility] Creatinine 0.85 0.60 - 1.30 mg/dL 04/25/2025 1:02 AM [facility] Glucose 74 70 - 100 mg/dL 04/25/2025 1:02 AM [facility] Calcium 7.3(L) 8.6 - 10.3 mg/dL 04/25/2025 1:02 AM [facility] Phosphorus 3.3 2.1 - 4.7 mg/dL 04/25/2025 1:02 AM [facility] Albumin 2.3(L) 3.5 - 5.7 g/dL 04/25/2025 1:02 AM [facility] Osmolality, Calculated 300 278 - 305 mOsm/kg 04/25/2025 1:02 AM [facility] EGFR >90 04/25/2025 1:02 AM [facility] Comment: As of 2021, the [...] renal disease. For additional information: [email or web address] Plasma 04/25/2025 12:0 5 AM EST 04/25/2025 12:09 AM EST us Gloria Chen MD LAB BLOOD ORDERABLES Final Resul t Performing Organization Address City/State/[facility] Co de Phone Number [facility] [address] * (ABNORMAL) CBC (04/25/2025 12:05 AM EST) WBC 6.1 3.8 - 10.8 10E3/uL 04/25/2025 12:38 AM EST [facility] RBC 2.79(L) 3.80 - 5.10 10E6/uL 04/25/2025 12:38 AM EST [facility] Hemoglobin 8.4(L) 11.7 - 15.5 g/dL 04/25/2025 12:38 AM EST [facility] Hematocrit 24.5(L) 35.0 - 45.0 % 04/25/2025 12:38 AM EST [facility] MCV 87.8 80.0 - 100.0 fL 04/25/2025 12:38 AM EST [facility] MCH 30.2 27.0 - 33.0 pg 04/25/2025 12:38 AM EST [facility] MCHC 34.4 32.0 - 36.0 g/dL 04/25/2025 12:38 AM EST [facility] RDW 16.9(H) 11.0 - 15.0 % 04/25/2025 12:38 AM EST [facility] Platelets 43(L) 140 - 400 10E3/uL 04/25/2025 12:38 AM EST [facility] Comment: CNV Specimen checked for clots. None detected. MPV 9.6 7.5 - 11.5 fL 04/25/2025 12:38 AM EST [facility] Whole Blood 04/25/2025 12:0 5 AM EST 04/25/2025 12:09 AM EST us Julius Becerra MD LAB BLOOD ORDERABLES Final Resul t [facility] [address] [facility]. [address] * POC Glucose Monitoring Device (04/25/2025 12:04 AM EST) POC Glucose Monitoring Device 79 70 - 100 mg/dL 04/25/2025 12:05 AM EST [facility] Blood 04/25/2025 12:0 4 AM EST 04/25/2025 12:05 AM EST us Ludin Jose MD POINT OF CARE TEST ORDERABLES Fi nal Result Performing Organization Address [facility] Co de Phone Number [facility] [address] [place] [address]. [address] * Magnesium (04/24/2025 6:40 PM EST) Pathologist [facility] Magnesium 2.4 1.5 - 2.5 mg/dL 04/24/2025 7:19 PM EST [facility] Plasma 04/24/2025 6:40 PM EST 04/24/2025 6:44 PM EST us Gloria Chen MD LAB BLOOD ORDERABLES Final Resul t [facility] [address] [facility]. [address] * (ABNORMAL) Renal Function Panel w/EGFR (04/24/2025 6:40 PM EST) Sodium 141 133 - 146 mmol/L 04/24/2025 7:19 PM [facility] Potassium 4.6 3.5 - 5.3 mmol/L 04/24/2025 7:19 PM [facility] Chloride 112(H) 98 - 110 mmol/L 04/24/2025 7:19 PM [facility] CO2 24 21 - 33 mmol/L 04/24/2025 7:19 PM [facility] Comment:High lactate dehydro genase concentrations in patient samples may cause falsely increased bicarbonate results. If markedly elevated LDH is observed or suspected, please assess results in conjunction with patient`s clinical presentation. In cases of discrepant results, consider evaluating CO2 in with a blood gas order. Anion Gap 5 3 - 16 mmol/L 04/24/2025 7:19 PM [facility] BUN 33(H) 7 - 25 mg/dL 04/24/2025 7:19 PM [facility] Creatinine 0.93 0.60 - 1.30 mg/dL 04/24/2025 7:19 PM [facility] Glucose 100 70 - 100 mg/dL 04/24/2025 7:19 PM [facility] Calcium 7.3(L) 8.6 - 10.3 mg/dL 04/24/2025 7:19 PM [facility] Phosphorus 3.5 2.1 - 4.7 mg/dL 04/24/2025 7:19 PM [facility] Albumin 2.4(L) 3.5 - 5.7 g/dL 04/24/2025 7:19 PM [facility] Osmolality, Calculated 299 278 - 305 mOsm/kg 04/24/2025 7:19 PM [facility] EGFR 82 04/24/2025 7:19 PM [facility] Comment:As of 2021, the estimated [...] Disease. Am J Kidney Dis. 2020. Plasma 04/24/2025 6:40 PM EST 04/24/2025 6:44 PM EST us Gloria Chen MD LAB BLOOD ORDERABLES Final Resul t [facility] [address] [place] [address], [facility] * (ABNORMAL) CBC (04/24/2025 6:40 PM EST) WBC 7.2 3.8 - 10.8 10E3/uL 04/24/2025 7:14 PM EST [facility] RBC 2.91(L) 3.80 - 5.10 10E6/uL 04/24/2025 7:14 PM EST [facility] Hemoglobin 8.9(L) 11.7 - 15.5 g/dL 04/24/2025 7:14 PM EST [facility] Hematocrit 25.4(L) 35.0 - 45.0 % 04/24/2025 7:14 PM EST [facility] MCV 87.2 80.0 - 100.0 fL 04/24/2025 7:14 PM EST [facility] MCH 30.5 27.0 - 33.0 pg 04/24/2025 7:14 PM EST [facility] MCHC 35.0 32.0 - 36.0 g/dL 04/24/2025 7:14 PM EST [facility] RDW 17.2(H) 11.0 - 15.0 % 04/24/2025 7:14 PM EST [facility] Platelets 47(L) 140 - 400 10E3/uL 04/24/2025 7:14 PM EST [facility] Comment:CNV MPV 10.1 7.5 - 11.5 fL 04/24/2025 7:14 PM EST [facility] Whole Blood 04/24/2025 6:40 PM EST 04/24/2025 6:44 PM EST us Julius Becerra MD LAB BLOOD ORDERABLES Final Resul t [facility] [address] * POC Glucose Monitoring Device (04/24/2025 6:38 PM EST) POC Glucose Monitoring Device 97 70 - 100 mg/dL 04/24/2025 6:38 PM EST [facility] Blood 04/24/2025 6:38 PM EST 04/24/2025 6:38 PM EST us Ludin Jose MD POINT OF CARE TEST ORDERABLES Fi nal Result Performing Organization Address City/[facility]/ZIP Co de Phone Number [facility] [address] * (ABNORMAL) Blood Gas, Arterial, STAT (04/24/2025 12:29 PM EST) O2 Sat, Arterial 99 04/24/2025 12:36 PM EST [facility] FIO2 3L 04/24/2025 12:36 PM [facility] pH, Arterial 7.37 7.35 - 7.45 04/24/2025 12:36 PM [facility] pCO2, Arterial 39 35 - 45 mm Hg 04/24/2025 12:36 PM EST [facility] pO2, Arterial 109(H) 80 - 100 mm Hg 04/24/2025 12:36 PM EST [facility] HCO3, Arterial 23 22 - 26 mmol/L 04/24/2025 12:36 PM [facility] CO2 Content,Arteri al 24 23 - 27 mmol/L 04/24/2025 12:36 PM [facility] Base Excess, Arterial -2.5(L) -2.0 - 3.0 mmol/L 04/24/2025 12:36 PM [facility] %HBO2, Arterial 97.1 95.0 - 98.0 % 04/24/2025 12:36 PM EST [facility] Carboxyhemoglo bin, Arterial 1.5 % 04/24/2025 12:36 PM EST [facility] Comment: CARBOXYHEMOGLOBIN (CO) REFERENCE RANGES: Non-Smokers: <2 % Smokers: <8 % TOXIC: >20 % Methemoglobin, Arterial 0.0 0.0 - 1.5 % 04/24/2025 12:36 PM EST [facility] Blood, Arterial 04/24/2025 1 2:29 PM EST 04/24/2025 12:33 PM EST us Judith Murcia MD LAB BLOOD ORDERABLES Final Res ult [facility] [address] [facility]. [address] * Magnesium (04/24/2025 12:29 PM EST) Magnesium 2.4 1.5 - 2.5 mg/dL 04/24/2025 1:30 PM EST [facility] Plasma 04/24/2025 12:2 9 PM EST 04/24/2025 12:55 PM EST Gloria Chen MD LAB BLOOD ORDERABLES Final Resul t Performing Organization Address [facility] Co de Phone Number [facility] [address] [facility]. [address] * (ABNORMAL) Renal Function Panel w/EGFR (04/24/2025 12:29 PM EST) Sodium 140 133 - 146 mmol/L 04/24/2025 1:30 PM EST [facility] Potassium 4.6 3.5 - 5.3 mmol/L 04/24/2025 1:30 PM EST [facility] Chloride 110 98 - 110 mmol/L 04/24/2025 1:30 PM EST [facility] CO2 24 21 - 33 mmol/L 04/24/2025 1:30 PM EST [facility] Comment:High lactate dehydro genase concentrations in patient samples may cause falsely increased bicarbonate results. If markedly elevated LDH is observed or suspected, please assess results in conjunction with patient`s clinical presentation. In cases of discrepant results, consider evaluating CO2 in with a blood gas order. Anion Gap 6 3 - 16 mmol/L 04/24/2025 1:30 PM EST [facility] BUN 38(H) 7 - 25 mg/dL 04/24/2025 1:30 PM EST [facility] Creatinine 1.21 0.60 - 1.30 mg/dL 04/24/2025 1:30 PM EST [facility] Glucose 117(H) 70 - 100 mg/dL 04/24/2025 1:30 PM EST [facility] Calcium 7.3(L) 8.6 - 10.3 mg/dL 04/24/2025 1:30 PM EST [facility] Phosphorus 4.0 2.1 - 4.7 mg/dL 04/24/2025 1:30 PM EST [facility] Albumin 2.4(L) 3.5 - 5.7 g/dL 04/24/2025 1:30 PM EST [facility] Osmolality, Calculated 300 278 - 305 mOsm/kg 04/24/2025 1:30 PM EST [facility] EGFR 60 04/24/2025 1:30 PM EST [facility] Comment:As of 2021, the estimated GFR [...] Disease. Am J Kidney Dis. 2020. Plasma 04/24/2025 12:2 9 PM EST 04/24/2025 12:55 PM EST us Gloria Chen MD LAB BLOOD ORDERABLES Final Resul t [facility] [address] [place] [address], [facility] * (ABNORMAL) CBC (04/24/2025 12:29 PM EST) WBC 8.8 3.8 - 10.8 10E3/uL 04/24/2025 1:11 PM EST [facility] RBC 2.98(L) 3.80 - 5.10 10E6/uL 04/24/2025 1:11 PM EST [facility] Hemoglobin 9.1(L) 11.7 - 15.5 g/dL 04/24/2025 1:11 PM EST [facility] Hematocrit 25.9(L) 35.0 - 45.0 % 04/24/2025 1:11 PM EST [facility] MCV 87.0 80.0 - 100.0 fL 04/24/2025 1:11 PM EST [facility] MCH 30.6 27.0 - 33.0 pg 04/24/2025 1:11 PM EST [facility] MCHC 35.2 32.0 - 36.0 g/dL 04/24/2025 1:11 PM EST [facility] RDW 17.0(H) 11.0 - 15.0 % 04/24/2025 1:11 PM EST [facility] Platelets 49(L) 140 - 400 10E3/uL 04/24/2025 1:11 PM EST [facility] Comment:CNV MPV 9.7 7.5 - 11.5 fL 04/24/2025 1:11 PM EST [facility] Whole Blood 04/24/2025 12:2 9 PM EST 04/24/2025 12:55 PM EST Julius Becerra MD LAB BLOOD ORDERABLES Final Resul t [facility] [address] [place] [address], [facility] * (ABNORMAL) POC Glucose Monitoring Device (04/24/2025 12:25 PM EST) POC Glucose Monitoring Device 112(H) 70 - 100 mg/dL 04/24/2025 12:33 PM EST [facility] Blood 04/24/2025 12:2 5 PM EST 04/24/2025 12:32 PM EST us Ludin Joes MD POINT OF CARE TEST ORDERABLES Fi nal Result [facility] [address] [place] [address], [facility] * X-ray Portable Chest (04/24/2025 8:52 AM EST) Anatomical Region Laterality Modality Chest Radiographic Radha ging 04/24/2025 7:30 AM EST Impressions 04/24/2025 1:10 PM EST IMPRESSION: No significant interval change. Report Verified by: Anuj Chavarria DO at 04/24/2025 1:10 PM EST Narrative 04/24/2025 1:10 PM EST EXAM: XR PORTABLE CHEST INDICATION: Other - Must Specify in Comments; SBT TECHNIQUE: 1 view of the chest. COMPARISON: 04/23/2025 FINDINGS: Medical Devices: Endotracheal tube tip projects over the mid thoracic trachea. Enteric tube tip projects over the stomach. Surgical drain projects over the right upper quadrant. Right PICC tip projects over the cavoatrial junction. Heart and Mediastinum: Unchanged. Lungs and Pleura: Streaky left basilar opacities are not significantly changed. No sizable pleural effusion. No pneumothorax. Bones and Soft tissues: Unchanged. Procedure Note Anuj Chavarria DO - 04/24/2025 EXAM: XR PORTABLE CHEST INDICATION: Other - Must Specify in Comments; SBT TECHNIQUE: 1 view of the chest. COMPARISON: 04/23/2025 FINDINGS: Medical Devices: Endotracheal tube tip projects over the mid thoracictrachea. Enteric tube tip projects over the stomach. Surgical drainprojects over the right upper quadrant. Right PICC tip projects over thecavoatrial junction. Heart and Mediastinum: Unchanged. Lungs and Pleura: Streaky left basilar opacities are not significantlychanged. No sizable pleural effusion. No pneumothorax. Bones and Soft tissues: Unchanged. IMPRESSION: No significant interval change. Report Verified by: Anuj Chavarria DO at 04/24/2025 1:10 PM EST Moe Luis MD IMG DIAGNOSTIC IMAGING ORDERABLES Final Result * Tacrolimus level (04/24/2025 7:57 AM EST) Pathologist [facility] Tacrolimus (LC-MS) 10.5 3.0 - 15.0 ng/mL 04/24/2025 12:56 PM EST [facility] Comment:Performed via liquid chromatography tandem mass spectrometry. Detection limit: 1 ng/mL. Individual target concentrations may vary due to target organ and time after transplant. This test has been developed and its performance characteristics determined by [facility] which is certified under the Clinical Laboratory Improvement Amendment of 1988 (CLIA-88) to perform high complexity testing. The test has not been cleared or approved by the US Food and Drug Administration (FDA). The FDA has determined that such clearance is not necessary. The test should be used for clinical purposes and is not regarded as investigational. Whole Blood 04/24/2025 7:57 AM EST 04/24/2025 8:02 AM EST Gloria Chen MD LAB BLOOD ORDERABLES Final Resul t [facility] [address] * Prepare RBC, leukoreduced, 6 Units (04/24/2025 6:15 AM EST) Product Code V0895Z98 HCLL Unit Number [id number] HCLL Dispense Status Presumed Transfused_PT HCLL Blood Expiration Date [id number] HCLL Coding System [id number] HCLL Product Code T6858W61 HCLL Unit Number [id number] HCLL Dispense Status Presumed Transfused_PT HCLL Blood Expiration Date HCLL Coding System [id number] HCLL Blood Bank Product Moe Luis MD BLOOD BANK PRODUCT ORD ERABLES Final Result HCLL * Prepare RBC, leukoreduced, 4 Units (04/24/2025 6:15 AM EST) Product Code H0441I92 HCLL Unit Number [id number] HCLL Dispense Status Presumed Transfused_PT HCLL Blood Expiration Date HCLL Coding System HLKB300 HCLL Product Code T0654P47 HCLL Unit Number [id number] HCLL Dispense Status Released from Crossmatch_RE HCLL Blood Expiration Date HCLL Coding System [id number] HCLL Product Code V6179T45 HCLL Unit Number [id number] HCLL Dispense Status Released from Crossmatch_RE HCLL Blood Expiration Date HCLL Coding System AKKY448 HCLL Product Code Q0653Z74 HCLL Unit Number [id number] HCLL Dispense Status Released from Crossmatch_RE HCLL Blood Expiration Date HCLL Coding System NBFB359 HCLL Product Code T7321L90 HCLL Unit Number [id number] HCLL Dispense Status Released from Crossmatch_RE HCLL Blood Expiration Date HCLL Coding System QQZZ169 HCLL Product Code O9987T24 HCLL Unit Number [id number] HCLL Dispense Status Released from Crossmatch_RE HCLL Blood Expiration Date HCLL Coding System KNKO386 HCLL Blood Bank Product Catracho Hui MD BLOOD BANK PRODUCT ORDERAB LES Final Result HCLL * Prepare Platelets, leukoreduced, 1 Units (04/24/2025 6:15 AM EST) Product Code M7380M97 HCLL Unit Number [id number] HCLL Dispense Status Presumed Transfused_PT HCLL Blood Expiration Date HCLL Coding System NHXC035 HCLL Blood Bank Product Sergey Altman MD BLOOD BANK PRODUCT O RDERABLES Final Result [facility] * Prepare Cryoprecipitate, 1 Units (04/24/2025 6:15 AM EST) Product Code P3572I95 [facility] Unit Number [id number] [facility] Dispense Status Presumed Transfused_PT [facility] Blood Expiration Date HCLL Coding System [id number] [facility] Product Code Q8463N84 [facility] Unit Number [id number] [facility] Dispense Status Presumed Transfused_PT [facility] Blood Expiration Date [id number] HCLL Coding System [id number] [facility] Blood Bank Product Sergey Altman MD BLOOD BANK PRODUCT O RDERABLES Final Result Performing Organization Address [facility] de Phone Number HC[facility] * Prepare Cryoprecipitate, 1 Units (04/24/2025 6:15 AM EST) Product Code D7916W86 [facility] Unit Number [id number] [facility] Dispense Status Presumed Transfused_PT [facility]LL Blood Expiration Date HCLL Coding System KFPU533 [facility] Product Code H0044P05 [facility] Unit Number [id number] [facility] Dispense Status Presumed Transfused_PT HCLL Blood Expiration Date HCLL Coding System [id number] [facility] Blood Bank Product Sergey Altman MD BLOOD BANK PRODUCT O RDERABLES Final Result Performing Organization Address City/[facility] Co de Phone Number HC[facility] * Prepare Fresh Frozen Plasma, 2 Units (04/24/2025 6:15 AM EST) Product Code D0331X08 [facility] Unit Number [id number] [facility] Dispense Status Presumed Transfused_PT [facility] Blood Expiration Date HCLL Coding System [id number] [facility] Product Code C9362E50 [facility] Unit Number [id number] [facility]LL Dispense Status Presumed Transfused_PT HCLL Blood Expiration Date HCLL Coding System [id number] HCLL Blood Bank Product Sergey Altman MD BLOOD BANK PRODUCT O RDERABLES Final Result Performing Organization Address [facility] Co de Phone Number HCLL * Prepare RBC, leukoreduced, 3 Units (04/24/2025 6:15 AM EST) Product Code [id number] HCLL Unit Number [id number] HCLL Dispense Status Presumed Transfused_PT HCLL Blood Expiration Date HCLL Coding System [id number] HCLL Product Code W1818M02 HCLL Unit Number [id number] HCLL Dispense Status Presumed Transfused_PT HCLL Blood Expiration Date HCLL Coding System [id number] HCLL Product Code A8059P25 HCLL Unit Number [id number] HCLL Dispense Status Released from Crossmatch_RE HCLL Blood Expiration Date HCLL Coding System [id number] HCLL Blood Bank Product Sergey Altman MD BLOOD BANK PRODUCT O RDERABLES Final Result Performing Organization Address [facility] Co de Phone Number HCLL * Prepare RBC, leukoreduced, 1 Units (04/24/2025 6:15 AM EST) Product Code [id number] HCLL Unit Number [id number] HCLL Dispense Status Presumed Transfused_PT HCLL Blood Expiration Date HCLL Coding System [id number] HCLL Blood Bank Product Sergey Altman MD BLOOD BANK PRODUCT O RDERABLES Final Result Performing Organization Address [facility] Co de Phone Number HCLL * Prepare RBC, leukoreduced, 2 Units (04/24/2025 6:15 AM EST) Product Code [id number] HCLL Unit Number [id number] HCLL Dispense Status Presumed Transfused_PT HCLL Blood Expiration Date HCLL Coding System [id number] HCLL Product Code O1986A13 HCLL Unit Number [id number] HCLL Dispense Status Presumed Transfused_PT HCLL Blood Expiration Date HCLL Coding System [id number] HCLL Blood Bank Product Sergey Altman MD BLOOD BANK PRODUCT O RDERABLES Final Result HCLL * (ABNORMAL) Blood Gas, Arterial, STAT (04/24/2025 5:43 AM EST) O2 Sat, Arterial 100 04/24/2025 5:49 AM EST [facility] FIO2 40% 04/24/2025 5:49 AM EST [facility] pH, Arterial 7.37 7.35 - 7.45 04/24/2025 5:49 AM [facility] pCO2, Arterial 40 35 - 45 mm Hg 04/24/2025 5:49 AM [facility] pO2, Arterial 107(H) 80 - 100 mm Hg 04/24/2025 5:49 AM [facility] HCO3, Arterial 23 22 - 26 mmol/L 04/24/2025 5:49 AM [facility] CO2 Content,Arteri al 24 23 - 27 mmol/L 04/24/2025 5:49 AM EST [facility] Base Excess, Arterial -2.0 -2.0 - 3.0 mmol/L 04/24/2025 5:49 AM [facility] %HBO2, Arterial 97.3 95.0 - 98.0 % 04/24/2025 5:49 AM [facility] Carboxyhemoglo bin, Arterial 2.7 % 04/24/2025 5:49 AM EST [facility] Comment: CARBOXYHEMOGLOBIN (CO) REFERENCE RANGES: Non-Smokers: <2 % Smokers: <8 % TOXIC: >20 % Methemoglobin, Arterial 0.0 0.0 - 1.5 % 04/24/2025 5:49 AM EST [facility] Blood, Arterial 04/24/2025 5 :43 AM EST 04/24/2025 5:46 AM EST us Judith Murcia MD LAB BLOOD ORDERABLES Final Res ult Performing Organization Address [facility] Co de Phone Number [facility] [address] [facility]. [address] * (ABNORMAL) POC Glucose Monitoring Device (04/24/2025 4:38 AM EST) POC Glucose Monitoring Device 103(H) 70 - 100 mg/dL 04/24/2025 4:39 AM EST [facility] Blood 04/24/2025 4:38 AM EST 04/24/2025 4:39 AM EST us Ludin Jose MD POINT OF CARE TEST ORDERABLES Fi nal Result Performing Organization Address [facility] de Phone Number [facility] [address] * Protime-INR, STAT (04/24/2025 4:36 AM EST) Protime 14.7 12.1 - 15.1 seconds 04/24/2025 5:13 AM EST [facility] INR 1.1 0.9 - 1.1 04/24/2025 5:13 AM EST [facility] Comment: RECOMMENDED THERAPEUTIC RANGES USING INR : Stable oral anticoagulant therapy: 2.0 - 3.0 Mechanical prosthetic heart valve: 2.5 - 3.5 Recurrent acute myocardial infarction: 2.5 - 3.5 Plasma 04/24/2025 4:36 AM EST 04/24/2025 4:44 AM EST us Judith Murcia MD LAB BLOOD ORDERABLES Final Res ult Performing Organization Address [facility] Co de Phone Number [facility] [address] [facility]. [address] * TEG-Bypass/ECMO/Liver HN (Factor function, Platelet/Fibrin Clot Strength w/Clot Breakdown, Heparinase In All Channels) (04/24/2025 4:36 AM EST) Citrated Kaolin Reaction Time (TEGECMOLIVER) 6.2 4.6 - 9.1 minutes 04/24/2025 6:00 AM EST [facility] Citrated Kaolin W/Heparinase Reaction Time (TEGECMOLIVER) 5.3 4.3 - 8.3 minutes 04/24/2025 6:00 AM EST [facility] Citrated Kaolin Maximum Amplitude (TEGECMOLIVER) 58.2 52.0 - 69.0 mm 04/24/2025 6:00 AM EST [facility] Citrated Functional Fibrinogen W/Heparinase Maximum Amplitude(TEGEC MOLIVER) 19.2 15.0 - 34.0 mm 04/24/2025 6:00 AM EST [facility] Citrated Rapid Teg W/Heparinase Maximum Amplitude (TEGECMOLIVER) 55.6 53.0 - 69.0 mm 04/24/2025 6:00 AM EST [facility] Citrated Kaolin w/Heparinase Percent Lysis (TEGECMOLIVER) 0.0 0.0 - 3.2 % 04/24/2025 6:00 AM EST [facility] Whole Blood (Citrate) 04/24/2025 4:36 AM EST 04/24/2025 4:44 AM EST Julius Becerra MD LAB BLOOD ORDERABLES Final Resul t Performing Organization Address [facility] Co de Phone Number [facility] [address] [facility]. [address] * Magnesium (04/24/2025 4:36 AM EST) Magnesium 2.4 1.5 - 2.5 mg/dL 04/24/2025 5:16 AM EST [facility] Plasma 04/24/2025 4:36 AM EST 04/24/2025 4:44 AM EST Gloria Chen MD LAB BLOOD ORDERABLES Final Resul t Performing Organization Address City/[facility]/ZIP Co de Phone Number [facility] [address] [facility]. [address] * (ABNORMAL) Renal Function Panel w/EGFR (04/24/2025 4:36 AM EST) Sodium 139 133 - 146 mmol/L 04/24/2025 5:16 AM EST [facility] Potassium 4.9 3.5 - 5.3 mmol/L 04/24/2025 5:16 AM [facility] Chloride 108 98 - 110 mmol/L 04/24/2025 5:16 AM [facility] CO2 26 21 - 33 mmol/L 04/24/2025 5:16 AM [facility] Comment:High lactate dehydro genase concentrations in patient samples may cause falsely increased bicarbonate results. If markedly elevated LDH is observed or suspected, please assess results in conjunction with patient`s clinical presentation. In cases of discrepant results, consider evaluating CO2 in with a blood gas order. Anion Gap 5 3 - 16 mmol/L 04/24/2025 5:16 AM [facility] BUN 38(H) 7 - 25 mg/dL 04/24/2025 5:16 AM [facility] Creatinine 1.25 0.60 - 1.30 mg/dL 04/24/2025 5:16 AM [facility] Glucose 99 70 - 100 mg/dL 04/24/2025 5:16 AM [facility] Calcium 7.6(L) 8.6 - 10.3 mg/dL 04/24/2025 5:16 AM [facility] Phosphorus 5.0(H) 2.1 - 4.7 mg/dL 04/24/2025 5:16 AM [facility] Albumin 2.4(L) 3.5 - 5.7 g/dL 04/24/2025 5:16 AM [facility] Osmolality, Calculated 297 278 - 305 mOsm/kg 04/24/2025 5:16 AM [facility] EGFR 58 04/24/2025 5:16 AM [facility] Comment:As of 2021, the estimated [...] Chato [place], Suzy [place], Jyoti [place], Nas LINARES, et al. A Unifying Approach for GFR Estimation: Recommendations of the NKF-ASN Task Force on Reassessing the inclusion of Race in Diagnosing Kidney Disease. Am J Kidney Dis. 2020. Plasma 04/24/2025 4:36 AM EST 04/24/2025 4:44 AM EST us Gloria Chen MD LAB BLOOD ORDERABLES Final Resul t [facility] [address] * (ABNORMAL) CBC (04/24/2025 4:36 AM EST) WBC 9.4 3.8 - 10.8 10E3/uL 04/24/2025 4:48 AM EST [facility] RBC 3.29(L) 3.80 - 5.10 10E6/uL 04/24/2025 4:48 AM EST [facility] Hemoglobin 9.9(L) 11.7 - 15.5 g/dL 04/24/2025 4:48 AM EST [facility] Hematocrit 28.3(L) 35.0 - 45.0 % 04/24/2025 4:48 AM EST [facility] MCV 86.1 80.0 - 100.0 fL 04/24/2025 4:48 AM EST [facility] MCH 30.2 27.0 - 33.0 pg 04/24/2025 4:48 AM EST [facility] MCHC 35.1 32.0 - 36.0 g/dL 04/24/2025 4:48 AM EST [facility] RDW 17.1(H) 11.0 - 15.0 % 04/24/2025 4:48 AM EST [facility] Platelets 55(L) 140 - 400 10E3/uL 04/24/2025 4:48 AM EST [facility] MPV 9.2 7.5 - 11.5 fL 04/24/2025 4:48 AM EST [facility] Whole Blood 04/24/2025 4:36 AM EST 04/24/2025 4:44 AM EST us Julius Becerra MD LAB BLOOD ORDERABLES Final Resul t Performing Organization Address [facility] Co de Phone Number [facility] [address] * (ABNORMAL) Hepatic Function Panel (04/24/2025 4:36 AM EST) Total Bilirubin 2.9(H) 0.0 - 1.5 mg/dL 04/24/2025 5:16 AM EST [facility] Bilirubin, Direct 2.19(H) 0.00 - 0.40 mg/dL 04/24/2025 5:16 AM EST [facility] AST 77(H) 13 - 39 U/L 04/24/2025 5:16 AM EST [facility] ALT 98(H) 7 - 52 U/L 04/24/2025 5:16 AM EST [facility] Alkaline Phosphatase 84 36 - 125 U/L 04/24/2025 5:16 AM EST [facility] Total Protein 3.9(L) 6.4 - 8.9 g/dL 04/24/2025 5:16 AM EST [facility] Albumin 2.4(L) 3.5 - 5.7 g/dL 04/24/2025 5:16 AM EST [facility] Bilirubin, Indirect 0.71 0.00 - 1.10 mg/dL 04/24/2025 5:16 AM EST [facility] Plasma 04/24/2025 4:36 AM EST 04/24/2025 4:44 AM EST us Gloria Chen MD LAB BLOOD ORDERABLES Final Resul t Performing Organization Address [facility]/ZIP Co de Phone Number [facility] [address] * (ABNORMAL) POC Glucose Monitoring Device (04/24/2025 12:12 AM EDT) POC Glucose Monitoring Device 118(H) 70 - 100 mg/dL 04/24/2025 12:22 AM EDT [facility] Blood 04/24/2025 12:1 2 AM EDT 04/24/2025 12:22 AM EDT us Ludin Jose MD POINT OF CARE TEST ORDERABLES Fi nal Result Performing Organization Address [facility]/ZIP Co de Phone Number [facility] [address] [facility]. [address] * Protime-INR, STAT (04/24/2025 12:00 AM EDT) Protime 14.9 12.1 - 15.1 seconds 04/24/2025 12:59 AM EDT [facility] INR 1.1 0.9 - 1.1 04/24/2025 12:59 AM EDT [facility] Comment: RECOMMENDED THERAPEUTIC RANGES USING INR : Stable oral anticoagulant therapy: 2.0 - 3.0 Mechanical prosthetic heart valve: 2.5 - 3.5 Recurrent acute myocardial infarction: 2.5 - 3.5 Plasma 04/24/2025 04/24/2025 12: 27 AM EDT us Judith Murcia MD LAB BLOOD ORDERABLES Final Res ult Performing Organization Address [facility]/ZIP Co de Phone Number [facility] [address] * (ABNORMAL) Blood Gas, Arterial, STAT (04/24/2025 12:00 AM EDT) O2 Sat, Arterial 100 04/24/2025 12:32 AM EDT [facility] FIO2 40% FiO2 04/24/2025 12:32 AM EDT [facility] pH, Arterial 7.34(L) 7.35 - 7.45 04/24/2025 12:32 AM EDT [facility] pCO2, Arterial 45 35 - 45 mm Hg 04/24/2025 12:32 AM EDT [facility] pO2, Arterial 102(H) 80 - 100 mm Hg 04/24/2025 12:32 AM EDT [facility] HCO3, Arterial 24 22 - 26 mmol/L 04/24/2025 12:32 AM EDT [facility] CO2 Content,Arteri al 26 23 - 27 mmol/L 04/24/2025 12:32 AM EDT [facility] Base Excess, Arterial -1.6 -2.0 - 3.0 mmol/L 04/24/2025 12:32 AM EDT [facility] %HBO2, Arterial 96.7 95.0 - 98.0 % 04/24/2025 12:32 AM EDT [facility] Carboxyhemoglo bin, Arterial 2.2 % 04/24/2025 12:32 AM EDT [facility] Comment: CARBOXYHEMOGLOBIN (CO) REFERENCE RANGES: Non-Smokers: <2 % Smokers: <8 % TOXIC: >20 % Methemoglobin, Arterial 0.9 0.0 - 1.5 % 04/24/2025 12:32 AM EDT [facility] Blood, Arterial 04/24/2025 12:27 AM EDT us Judith Murcia MD LAB BLOOD ORDERABLES Final Res ult [facility] [address] [place] [address], [facility] * TEG-Bypass/ECMO/Liver HN (Factor function, Platelet/Fibrin Clot Strength w/Clot Breakdown, Heparinase In All Channels) (04/24/2025 12:00 AM EDT) Citrated Kaolin Reaction Time (TEGECMOLIVER) 6.0 4.6 - 9.1 minutes 04/24/2025 1:08 AM EDT [facility] Citrated Kaolin W/Heparinase Reaction Time (TEGECMOLIVER) 5.4 4.3 - 8.3 minutes 04/24/2025 1:08 AM EDT [facility] Citrated Kaolin Maximum Amplitude (TEGECMOLIVER) 59.2 52.0 - 69.0 mm 04/24/2025 1:08 AM EDT [facility] Citrated Functional Fibrinogen W/Heparinase Maximum Amplitude(TEGEC MOLIVER) 19.4 15.0 - 34.0 mm 04/24/2025 1:08 AM EDT [facility] Citrated Rapid Teg W/Heparinase Maximum Amplitude (TEGECMOLIVER) 57.1 53.0 - 69.0 mm 04/24/2025 1:08 AM EDT [facility] Citrated Kaolin w/Heparinase Percent Lysis (TEGECMOLIVER) 0.0 0.0 - 3.2 % 04/24/2025 1:08 AM EDT [facility] Whole Blood (Citrate) 04/24/2025 04/24/2025 12:27 AM EDT Julius Becerra MD LAB BLOOD ORDERABLES Final Resul t Performing Organization Address [facility]/ZIP Co de Phone Number [facility] [address] [facility]. [address] * Magnesium (04/24/2025 12:00 AM EDT) Magnesium 2.4 1.5 - 2.5 mg/dL 04/24/2025 12:54 AM EDT [facility] Plasma 04/24/2025 04/24/2025 12: 27 AM EDT Gloria Chen MD LAB BLOOD ORDERABLES Final Resul t Performing Organization Address [facility] Co de Phone Number [facility] [address] [facility]. [address] * (ABNORMAL) Renal Function Panel w/EGFR (04/24/2025 12:00 AM EDT) Sodium 138 133 - 146 mmol/L 04/24/2025 12:54 AM EDT [facility] Potassium 5.3 3.5 - 5.3 mmol/L 04/24/2025 12:54 AM EDT [facility] Chloride 108 98 - 110 mmol/L 04/24/2025 12:54 AM EDT [facility] CO2 26 21 - 33 mmol/L 04/24/2025 12:54 AM EDT [facility] Comment:High lactate dehydro genase concentrations in patient samples may cause falsely increased bicarbonate results. If markedly elevated LDH is observed or suspected, please assess results in conjunction with patient`s clinical presentation. In cases of discrepant results, consider evaluating CO2 in with a blood gas order. Anion Gap 4 3 - 16 mmol/L 04/24/2025 12:54 AM EDT [facility] BUN 37(H) 7 - 25 mg/dL 04/24/2025 12:54 AM EDT [facility] Creatinine 1.25 0.60 - 1.30 mg/dL 04/24/2025 12:54 AM EDT [facility] Glucose 118(H) 70 - 100 mg/dL 04/24/2025 12:54 AM EDT [facility] Calcium 7.9(L) 8.6 - 10.3 mg/dL 04/24/2025 12:54 AM EDT [facility] Phosphorus 5.4(H) 2.1 - 4.7 mg/dL 04/24/2025 12:54 AM EDT [facility] Albumin 2.5(L) 3.5 - 5.7 g/dL 04/24/2025 12:54 AM EDT [facility] Osmolality, Calculated 296 278 - 305 mOsm/kg 04/24/2025 12:54 AM EDT [facility] EGFR 58 04/24/2025 12:54 AM EDT [facility] Comment:As of 2021, the estimated GFR [...] Disease. Am J Kidney Dis. 2020. Plasma 04/24/2025 04/24/2025 12: 27 AM EDT us Gloria Chen MD LAB BLOOD ORDERABLES Final Resul t [facility] [address] [facility]. [address] * (ABNORMAL) CBC (04/24/2025 12:00 AM EDT) WBC 10.5 3.8 - 10.8 10E3/uL 04/24/2025 12:31 AM EDT [facility] RBC 3.41(L) 3.80 - 5.10 10E6/uL 04/24/2025 12:31 AM EDT [facility] Hemoglobin 10.4(L) 11.7 - 15.5 g/dL 04/24/2025 12:31 AM EDT [facility] Hematocrit 29.6(L) 35.0 - 45.0 % 04/24/2025 12:31 AM EDT [facility] MCV 86.8 80.0 - 100.0 fL 04/24/2025 12:31 AM EDT [facility] MCH 30.4 27.0 - 33.0 pg 04/24/2025 12:31 AM EDT [facility] MCHC 35.1 32.0 - 36.0 g/dL 04/24/2025 12:31 AM EDT [facility] RDW 16.8(H) 11.0 - 15.0 % 04/24/2025 12:31 AM EDT [facility] Platelets 65(L) 140 - 400 10E3/uL 04/24/2025 12:31 AM EDT [facility] MPV 9.8 7.5 - 11.5 fL 04/24/2025 12:31 AM EDT [facility] Whole Blood 04/24/2025 04/24/2025 12 :27 AM EDT us Julius Becerra MD LAB BLOOD ORDERABLES Final Resul t [facility] [address] [facility]. [address] * Protime-INR, STAT (04/23/2025 6:11 PM EDT) Protime 15.1 12.1 - 15.1 seconds 04/23/2025 6:38 PM EDT [facility] INR 1.1 0.9 - 1.1 04/23/2025 6:38 PM EDT [facility] Comment: RECOMMENDED THERAPEUTIC RANGES USING INR : Stable oral anticoagulant therapy: 2.0 - 3.0 Mechanical prosthetic heart valve: 2.5 - 3.5 Recurrent acute myocardial infarction: 2.5 - 3.5 Plasma 04/23/2025 6:11 PM EDT 04/23/2025 6:17 PM EDT us Judith Murcia MD LAB BLOOD ORDERABLES Final Res ult [facility] [address] [place] [address], [facility] * (ABNORMAL) Blood Gas, Arterial, STAT (04/23/2025 6:11 PM EDT) O2 Sat, Arterial 100 04/23/2025 6:20 PM EDT [facility] FIO2 40% 04/23/2025 6:20 PM EDT [facility] pH, Arterial 7.34(L) 7.35 - 7.45 04/23/2025 6:20 PM EDT [facility] pCO2, Arterial 44 35 - 45 mm Hg 04/23/2025 6:20 PM EDT [facility] pO2, Arterial 107(H) 80 - 100 mm Hg 04/23/2025 6:20 PM EDT [facility] HCO3, Arterial 23 22 - 26 mmol/L 04/23/2025 6:20 PM EDT [facility] CO2 Content,Arteri al 25 23 - 27 mmol/L 04/23/2025 6:20 PM EDT [facility] Base Excess, Arterial -2.1(L) -2.0 - 3.0 mmol/L 04/23/2025 6:20 PM EDT [facility] %HBO2, Arterial 96.3 95.0 - 98.0 % 04/23/2025 6:20 PM EDT [facility] Carboxyhemoglo bin, Arterial 2.4 % 04/23/2025 6:20 PM EDT [facility] Comment: CARBOXYHEMOGLOBIN (CO) REFERENCE RANGES: Non-Smokers: <2 % Smokers: <8 % TOXIC: >20 % Methemoglobin, Arterial 0.8 0.0 - 1.5 % 04/23/2025 6:20 PM EDT [facility] Blood, Arterial 04/23/2025 6 :11 PM EDT 04/23/2025 6:17 PM EDT us Judith Murcia MD LAB BLOOD ORDERABLES Final Res ult [facility] [address] [place] [address], [facility] * TEG-Bypass/ECMO/Liver HN (Factor function, Platelet/Fibrin Clot Strength w/Clot Breakdown, Heparinase In All Channels) (04/23/2025 6:11 PM EDT) Pathologist [facility] Citrated Kaolin Reaction Time (TEGECMOLIVER) 7.4 4.6 - 9.1 minutes 04/23/2025 7:55 PM EDT [facility] Citrated Kaolin W/Heparinase Reaction Time (TEGECMOLIVER) 6.1 4.3 - 8.3 minutes 04/23/2025 7:55 PM EDT [facility] Citrated Kaolin Maximum Amplitude (TEGECMOLIVER) 55.1 52.0 - 69.0 mm 04/23/2025 7:55 PM EDT [facility] Citrated Functional Fibrinogen W/Heparinase Maximum Amplitude(TEGEC MOLIVER) 18.1 15.0 - 34.0 mm 04/23/2025 7:55 PM EDT [facility] Citrated Rapid Teg W/Heparinase Maximum Amplitude (TEGECMOLIVER) 54.3 53.0 - 69.0 mm 04/23/2025 7:55 PM EDT [facility] Citrated Kaolin w/Heparinase Percent Lysis (TEGECMOLIVER) 0.0 0.0 - 3.2 % 04/23/2025 7:55 PM EDT [facility] Whole Blood (Citrate) 04/23/2025 6:11 PM EDT 04/23/2025 6:17 PM EDT us Julius Becerra MD LAB BLOOD ORDERABLES Final Resul t [facility] [address] * Magnesium (04/23/2025 6:11 PM EDT) Magnesium 2.3 1.5 - 2.5 mg/dL 04/23/2025 6:52 PM EDT [facility] Plasma 04/23/2025 6:11 PM EDT 04/23/2025 6:17 PM EDT us Gloria Chen MD LAB BLOOD ORDERABLES Final Resul t Performing Organization Address [facility]/ZIP Co de Phone Number [facility] [address] [facility]. [address] * (ABNORMAL) Renal Function Panel w/EGFR (04/23/2025 6:11 PM EDT) Sodium 138 133 - 146 mmol/L 04/23/2025 6:52 PM EDT [facility] Potassium 5.4(H) 3.5 - 5.3 mmol/L 04/23/2025 6:52 PM EDT [facility] Chloride 107 98 - 110 mmol/L 04/23/2025 6:52 PM EDT [facility] CO2 24 21 - 33 mmol/L 04/23/2025 6:52 PM EDT [facility] Comment:High lactate dehydro genase concentrations in patient samples may cause falsely increased bicarbonate results. If markedly elevated LDH is observed or suspected, please assess results in conjunction with patient`s clinical presentation. In cases of discrepant results, consider evaluating CO2 in with a blood gas order. Anion Gap 7 3 - 16 mmol/L 04/23/2025 6:52 PM EDT [facility] BUN 35(H) 7 - 25 mg/dL 04/23/2025 6:52 PM EDT [facility] Creatinine 1.11 0.60 - 1.30 mg/dL 04/23/2025 6:52 PM EDT [facility] Glucose 154(H) 70 - 100 mg/dL 04/23/2025 6:52 PM EDT [facility] Calcium 7.9(L) 8.6 - 10.3 mg/dL 04/23/2025 6:52 PM EDT [facility] Phosphorus 5.3(H) 2.1 - 4.7 mg/dL 04/23/2025 6:52 PM EDT [facility] Albumin 2.5(L) 3.5 - 5.7 g/dL 04/23/2025 6:52 PM EDT [facility] Osmolality, Calculated 297 278 - 305 mOsm/kg 04/23/2025 6:52 PM EDT [facility] EGFR 66 04/23/2025 6:52 PM EDT [facility] Comment:As of 2021, the estimated GFR [...] Disease. Am J Kidney Dis. 2020. Plasma 04/23/2025 6:11 PM EDT 04/23/2025 6:17 PM EDT us Gloria Chen MD LAB BLOOD ORDERABLES Final Resul t [facility] [address] * (ABNORMAL) CBC (04/23/2025 6:11 PM EDT) WBC 9.1 3.8 - 10.8 10E3/uL 04/23/2025 6:26 PM EDT [facility] RBC 3.66(L) 3.80 - 5.10 10E6/uL 04/23/2025 6:26 PM EDT [facility] Hemoglobin 11.1(L) 11.7 - 15.5 g/dL 04/23/2025 6:26 PM EDT [facility] Hematocrit 31.4(L) 35.0 - 45.0 % 04/23/2025 6:26 PM EDT [facility] MCV 85.7 80.0 - 100.0 fL 04/23/2025 6:26 PM EDT [facility] MCH 30.4 27.0 - 33.0 pg 04/23/2025 6:26 PM EDT [facility] MCHC 35.5 32.0 - 36.0 g/dL 04/23/2025 6:26 PM EDT [facility] RDW 16.4(H) 11.0 - 15.0 % 04/23/2025 6:26 PM EDT [facility] Platelets 63(L) 140 - 400 10E3/uL 04/23/2025 6:26 PM EDT [facility] MPV 9.3 7.5 - 11.5 fL 04/23/2025 6:26 PM EDT [facility] Whole Blood 04/23/2025 6:11 PM EDT 04/23/2025 6:17 PM EDT Julius Becerra MD LAB BLOOD ORDERABLES Final Resul t [facility] [address] * (ABNORMAL) POC Glucose Monitoring Device (04/23/2025 6:09 PM EDT) POC Glucose Monitoring Device 145(H) 70 - 100 mg/dL 04/23/2025 6:11 PM EDT [facility] Blood 04/23/2025 6:09 PM EDT 04/23/2025 6:11 PM EDT us Ludin Jose MD POINT OF CARE TEST ORDERABLES Fi nal Result [facility] [address] * US Duplex [id number] Comp (04/23/2025 2:12 PM EDT) Anatomical Region Laterality Modality Abdomen, Pelvis, Testes, Vascular Ultrasound 04/23/2025 12:4 6 PM EDT Impressions 04/23/2025 2:30 PM EDT IMPRESSION: RIGHT UPPER QUADRANT Normal grayscale appearance of the right lobe liver allograft. Trace free fluid and right pleural effusion is within expected recent postsurgical limits. LIVER DOPPLER Patent hepatic vasculature. Report Verified by: Seble Crawford MD at 04/23/2025 2:30 PM EDT Narrative 04/23/2025 2:30 PM EDT EXAM: US ABDOMEN LIMITED EXAM: US DUPLEX [id number] COMPLETE INDICATION: Liver Transplant COMPARISON: None TECHNIQUE: Grayscale imaging was performed with attention to the right upper quadrant; color and spectral (duplex) Doppler analysis of the hepatic vasculature was also performed. FINDINGS: Liver: Normal grayscale appearance of the right lobe liver allograft. No focal hepatic lesions or perihepatic collections. Biliary/CBD: 4 mm. No intra or extrahepatic ductal dilatation. Gallbladder: Surgically absent.. Pancreas: Obscured by overlying bowel gas. Right kidney: 11.1 cm in length. Normal parenchymal echogenicity. No hydronephrosis. Other: Trace free fluid. Right pleural effusion DOPPLER: Hepatic Veins: Duplex evaluation of the hepatic vasculature demonstrates normal flow in the right and middle hepatic veins. Portal Veins: The main and intrahepatic portal veins demonstrate hepatopetal flow. Hepatic Arteries: Main and intra-hepatic arteries demonstrate normal waveforms. Resistive Indices Main hepatic artery: 0.65 Right hepatic artery: 0.62-0.66 Procedure Note Seble Crawford MD - 04/23/2025 EXAM: US ABDOMEN LIMITED EXAM: US DUPLEX [id number] COMPLETE INDICATION: Liver Transplant COMPARISON: None TECHNIQUE: Grayscale imaging was performed with attention to the rightupper quadrant; color and spectral (duplex) Doppler analysis of thehepatic vasculature was also performed. FINDINGS: Liver: Normal grayscale appearance of the right lobe liver allograft. Nofocal hepatic lesions or perihepatic collections. Biliary/CBD: 4 mm. No intra or extrahepatic ductal dilatation. Gallbladder: Surgically absent.. Pancreas: Obscured by overlying bowel gas. Right kidney: 11.1 cm in length. Normal parenchymal echogenicity. Nohydronephrosis. Other: Trace free fluid. Right pleural effusion DOPPLER: Hepatic Veins: Duplex evaluation of the hepatic vasculature demonstratesnormal flow in the right and middle hepatic veins. Portal Veins: The main and intrahepatic portal veins demonstratehepatopetal flow. Hepatic Arteries: Main and intra-hepatic arteries demonstrate normalwaveforms. Resistive Indices Main hepatic artery: 0.65 Right hepatic artery: 0.62-0.66 IMPRESSION: RIGHT UPPER QUADRANT Normal grayscale appearance of the right lobe liver allograft. Trace free fluid and right pleural effusion is within expected recentpostsurgical limits. LIVER DOPPLER Patent hepatic vasculature. Report Verified by: Seble Crawford MD at 04/23/2025 2:30 PM EDT us Giovanny Louis MD IMG US ORDERABLES Final Result * US Abdomen Limited (04/23/2025 2:12 PM EDT) Anatomical Region Laterality Modality Abdomen, Pelvis Ultrasound 04/23/2025 12:4 6 PM EDT Impressions 04/23/2025 2:30 PM EDT IMPRESSION: RIGHT UPPER QUADRANT Normal grayscale appearance of the right lobe liver allograft. Trace free fluid and right pleural effusion is within expected recent postsurgical limits. LIVER DOPPLER Patent hepatic vasculature. Report Verified by: Seble Crawford MD at 04/23/2025 2:30 PM EDT Narrative 04/23/2025 2:30 PM EDT EXAM: US ABDOMEN LIMITED EXAM: US DUPLEX [id number] COMPLETE INDICATION: Liver Transplant COMPARISON: None TECHNIQUE: Grayscale imaging was performed with attention to the right upper quadrant; color and spectral (duplex) Doppler analysis of the hepatic vasculature was also performed. FINDINGS: Liver: Normal grayscale appearance of the right lobe liver allograft. No focal hepatic lesions or perihepatic collections. Biliary/CBD: 4 mm. No intra or extrahepatic ductal dilatation. Gallbladder: Surgically absent.. Pancreas: Obscured by overlying bowel gas. Right kidney: 11.1 cm in length. Normal parenchymal echogenicity. No hydronephrosis. Other: Trace free fluid. Right pleural effusion DOPPLER: Hepatic Veins: Duplex evaluation of the hepatic vasculature demonstrates normal flow in the right and middle hepatic veins. Portal Veins: The main and intrahepatic portal veins demonstrate hepatopetal flow. Hepatic Arteries: Main and intra-hepatic arteries demonstrate normal waveforms. Resistive Indices Main hepatic artery: 0.65 Right hepatic artery: 0.62-0.66 Procedure Note Seble Crawford MD - 04/23/2025 EXAM: US ABDOMEN LIMITED EXAM: US DUPLEX [id number] COMPLETE INDICATION: Liver Transplant COMPARISON: None TECHNIQUE: Grayscale imaging was performed with attention to the rightupper quadrant; color and spectral (duplex) Doppler analysis of thehepatic vasculature was also performed. FINDINGS: Liver: Normal grayscale appearance of the right lobe liver allograft. Nofocal hepatic lesions or perihepatic collections. Biliary/CBD: 4 mm. No intra or extrahepatic ductal dilatation. Gallbladder: Surgically absent.. Pancreas: Obscured by overlying bowel gas. Right kidney: 11.1 cm in length. Normal parenchymal echogenicity. Nohydronephrosis. Other: Trace free fluid. Right pleural effusion DOPPLER: Hepatic Veins: Duplex evaluation of the hepatic vasculature demonstratesnormal flow in the right and middle hepatic veins. Portal Veins: The main and intrahepatic portal veins demonstratehepatopetal flow. Hepatic Arteries: Main and intra-hepatic arteries demonstrate normalwaveforms. Resistive Indices Main hepatic artery: 0.65 Right hepatic artery: 0.62-0.66 IMPRESSION: RIGHT UPPER QUADRANT Normal grayscale appearance of the right lobe liver allograft. Trace free fluid and right pleural effusion is within expected recentpostsurgical limits. LIVER DOPPLER Patent hepatic vasculature. Report Verified by: Seble Crawford MD at 04/23/2025 2:30 PM EDT Giovanny Louis MD [facility] US ORDERABLES Final Result * (ABNORMAL) Protime-INR, STAT (04/23/2025 1:44 PM EDT) Protime 15.5(H) 12.1 - 15.1 seconds 04/23/2025 2:16 PM EDT [facility] INR 1.2(H) 0.9 - 1.1 04/23/2025 2:16 PM EDT [facility] Comment: RECOMMENDED THERAPEUTIC RANGES USING INR : Stable oral anticoagulant therapy: 2.0 - 3.0 Mechanical prosthetic heart valve: 2.5 - 3.5 Recurrent acute myocardial infarction: 2.5 - 3.5 Plasma 04/23/2025 1:44 PM EDT 04/23/2025 1:53 PM EDT us Judith Murcia MD LAB BLOOD ORDERABLES Final Res ult [facility] [address] [place] [address], [facility] * (ABNORMAL) Blood Gas, Arterial, STAT (04/23/2025 1:44 PM EDT) O2 Sat, Arterial 98 04/23/2025 1:56 PM EDT [facility] FIO2 40 04/23/2025 1:56 PM EDT [facility] pH, Arterial 7.33(L) 7.35 - 7.45 04/23/2025 1:56 PM EDT [facility] pCO2, Arterial 42 35 - 45 mm Hg 04/23/2025 1:56 PM EDT [facility] pO2, Arterial 88 80 - 100 mm Hg 04/23/2025 1:56 PM EDT [facility] HCO3, Arterial 22 22 - 26 mmol/L 04/23/2025 1:56 PM EDT [facility] CO2 Content,Arteri al 23 23 - 27 mmol/L 04/23/2025 1:56 PM EDT [facility] Base Excess, Arterial -3.7(L) -2.0 - 3.0 mmol/L 04/23/2025 1:56 PM EDT [facility] %HBO2, Arterial 94.7(L) 95.0 - 98.0 % 04/23/2025 1:56 PM EDT [facility] Carboxyhemoglo bin, Arterial 2.2 % 04/23/2025 1:56 PM EDT [facility] Comment: CARBOXYHEMOGLOBIN (CO) REFERENCE RANGES: Non-Smokers: <2 % Smokers: <8 % TOXIC: >20 % Methemoglobin, Arterial 1.2 0.0 - 1.5 % 04/23/2025 1:56 PM EDT [facility] Blood, Arterial 04/23/2025 1 :44 PM EDT 04/23/2025 1:51 PM EDT us Judith Murcia MD LAB BLOOD ORDERABLES Final Res ult Performing Organization Address City/[facility] Co de Phone Number [facility] [address] [place] [address], [facility] * Transfuse RBC Transfusion Rate: Per dept routine (04/23/2025 1:11 PM EDT) Moe Luis MD NURSING TREATMENT ORDE RABLES - BLOOD ADMIN Final Result Performing Organization Address [facility] Co de Phone Number EXTERNAL * Transfuse RBC Transfusion Rate: Per dept routine, 2 Units (04/23/2025 1:11 PM EDT) Moe Luis MD NURSING TREATM ENT ORDERABLES - BLOOD ADMIN Edited Result - Final Performing Organization Address [facility] de Phone Number EXTERNAL * X-ray Portable Chest (04/23/2025 11:46 AM EDT) Anatomical Region Laterality Modality Chest Radiographic Radha ging 04/23/2025 11:3 5 AM EDT Impressions 04/23/2025 1:32 PM EDT IMPRESSION: 1. Improved aeration of the left lung, otherwise no significant change in bibasilar opacities. 2. Interval advancement of enteric feeding tube. Report Verified by: Anuj Chavarria DO at 04/23/2025 1:32 PM EDT Narrative 04/23/2025 1:32 PM EDT EXAM: XR PORTABLE CHEST INDICATION: Dyspnea, unspecified TECHNIQUE: 1 view of the chest. COMPARISON: 3 hours prior FINDINGS: Medical Devices: Endotracheal tube tip projects over the mid to lower thoracic trachea. Interval advancement of enteric tube which courses below diaphragm, tip not visualized. External defibrillator pads. Surgical drain projects over the right upper quadrant. Right upper extremity PICC tip projects over the cavoatrial junction. Heart and Mediastinum: Unchanged. Lungs and Pleura: Improved aeration of the left lung. No significant change in mild bibasilar opacities. No sizable pleural effusion. No pneumothorax. Bones and Soft tissues: Unchanged. Procedure Note Anuj Chavarria DO - 04/23/2025 EXAM: XR PORTABLE CHEST INDICATION: Dyspnea, unspecified TECHNIQUE: 1 view of the chest. COMPARISON: 3 hours prior FINDINGS: Medical Devices: Endotracheal tube tip projects over the mid to lowerthoracic trachea. Interval advancement of enteric tube which courses belowdiaphragm, tip not visualized. External defibrillator pads. Surgical drainprojects over the right upper quadrant. Right upper extremity PICC tipprojects over the cavoatrial junction. Heart and Mediastinum: Unchanged. Lungs and Pleura: Improved aeration of the left lung. No significantchange in mild bibasilar opacities. No sizable pleural effusion. Nopneumothorax. Bones and Soft tissues: Unchanged. IMPRESSION: 1. Improved aeration of the left lung, otherwise no significant change inbibasilar opacities. 2. Interval advancement of enteric feeding tube. Report Verified by: Anuj Chavarria DO at 04/23/2025 1:32 PM EDT us Judith Murcia MD IMG DIAGNOSTIC IMAGING ORDERAB LES Final Result * (ABNORMAL) Renal Function Panel w/EGFR (04/23/2025 11:46 AM EDT) Sodium 138 133 - 146 mmol/L 04/23/2025 12:54 PM EDT [facility] Potassium 5.1 3.5 - 5.3 mmol/L 04/23/2025 12:54 PM EDT [facility] Chloride 107 98 - 110 mmol/L 04/23/2025 12:54 PM EDT [facility] CO2 24 21 - 33 mmol/L 04/23/2025 12:54 PM EDT [facility] Comment:High lactate dehydro genase concentrations in patient samples may cause falsely increased bicarbonate results. If markedly elevated LDH is observed or suspected, please assess results in conjunction with patient`s clinical presentation. In cases of discrepant results, consider evaluating CO2 in with a blood gas order. Anion Gap 7 3 - 16 mmol/L 04/23/2025 12:54 PM EDT [facility] BUN 31(H) 7 - 25 mg/dL 04/23/2025 12:54 PM EDT [facility] Creatinine 0.95 0.60 - 1.30 mg/dL 04/23/2025 12:54 PM EDT [facility] Glucose 159(H) 70 - 100 mg/dL 04/23/2025 12:54 PM EDT [facility] Calcium 8.4(L) 8.6 - 10.3 mg/dL 04/23/2025 12:54 PM EDT [facility] Phosphorus 5.0(H) 2.1 - 4.7 mg/dL 04/23/2025 12:54 PM EDT [facility] Albumin 2.3(L) 3.5 - 5.7 g/dL 04/23/2025 12:54 PM EDT [facility] Osmolality, Calculated 296 278 - 305 mOsm/kg 04/23/2025 12:54 PM EDT [facility] EGFR 80 04/23/2025 12:54 PM EDT [facility] Comment:As of 2021, the estimated GFR [...] Disease. Am J Kidney Dis. 2020. Plasma 04/23/2025 11:4 6 AM EDT 04/23/2025 12:02 PM EDT us Julius Becerra MD LAB BLOOD ORDERABLES Final Resul t [facility] [address] [place] [address], [facility] * (ABNORMAL) TEG-Bypass/ECMO/Liver HN (Factor function, Platelet/Fibrin Clot Strength w/Clot Breakdown, Heparinase In All Channels) (04/23/2025 11:46 AM EDT) Citrated Kaolin Reaction Time (TEGECMOLIVER) 7.3 4.6 - 9.1 minutes 04/23/2025 1:06 PM EDT [facility] Citrated Kaolin W/Heparinase Reaction Time (TEGECMOLIVER) 4.7 4.3 - 8.3 minutes 04/23/2025 1:06 PM EDT [facility] Citrated Kaolin Maximum Amplitude (TEGECMOLIVER) 51.3(L) 52.0 - 69.0 mm 04/23/2025 1:06 PM EDT [facility] Citrated Functional Fibrinogen W/Heparinase Maximum Amplitude(TEGEC MOLIVER) 17.2 15.0 - 34.0 mm 04/23/2025 1:06 PM EDT [facility] Citrated Rapid Teg W/Heparinase Maximum Amplitude (TEGECMOLIVER) 49.3(L) 53.0 - 69.0 mm 04/23/2025 1:06 PM EDT [facility] Citrated Kaolin w/Heparinase Percent Lysis (TEGECMOLIVER) 0.0 0.0 - 3.2 % 04/23/2025 1:06 PM EDT [facility] Whole Blood (Citrate) 04/23/2025 11:46 AM EDT 04/23/2025 11:51 AM EDT us Judith Murcia MD LAB BLOOD ORDERABLES Final Res ult Performing Organization Address City/[facility]/ZIP Co de Phone Number [facility] [address] * (ABNORMAL) Free Calcium, Whole Blood (04/23/2025 11:46 AM EDT) Free Calcium, WB 5.49(H) 4.50 - 5.30 mg/dL 04/23/2025 11:57 AM EDT [facility] Blood, Arterial 04/23/2025 1 1:46 AM EDT 04/23/2025 11:54 AM EDT us Judith Murcia MD LAB BLOOD ORDERABLES Final Res ult [facility] [address] [place] * (ABNORMAL) Blood Gas, Arterial, STAT (04/23/2025 11:46 AM EDT) O2 Sat, Arterial 99 04/23/2025 11:54 AM EDT [facility] FIO2 50% 04/23/2025 11:54 AM EDT [facility] pH, Arterial 7.31(L) 7.35 - 7.45 04/23/2025 11:54 AM EDT [facility] pCO2, Arterial 46(H) 35 - 45 mm Hg 04/23/2025 11:54 AM EDT [facility] pO2, Arterial 158(H) 80 - 100 mm Hg 04/23/2025 11:54 AM EDT [facility] HCO3, Arterial 23 22 - 26 mmol/L 04/23/2025 11:54 AM EDT [facility] CO2 Content,Arteri al 25 23 - 27 mmol/L 04/23/2025 11:54 AM EDT [facility] Base Excess, Arterial -3.1(L) -2.0 - 3.0 mmol/L 04/23/2025 11:54 AM EDT [facility] %HBO2, Arterial 98.1(H) 95.0 - 98.0 % 04/23/2025 11:54 AM EDT [facility] Carboxyhemoglo bin, Arterial 1.2 % 04/23/2025 11:54 AM EDT [facility] Comment: CARBOXYHEMOGLOBIN (CO) REFERENCE RANGES: Non-Smokers: <2 % Smokers: <8 % TOXIC: >20 % Methemoglobin, Arterial 0.0 0.0 - 1.5 % 04/23/2025 11:54 AM EDT [facility] Blood, Arterial 04/23/2025 1 1:46 AM EDT 04/23/2025 11:51 AM EDT us Judith Murcia MD LAB BLOOD ORDERABLES Final Res ult [facility] [address] [place] [address] * Magnesium (04/23/2025 11:46 AM EDT) Pathologist [facility] Magnesium 2.3 1.5 - 2.5 mg/dL 04/23/2025 12:54 PM EDT [facility] Plasma 04/23/2025 11:4 6 AM EDT 04/23/2025 12:02 PM EDT Gloria Chen MD LAB BLOOD ORDERABLES Final Resul t [facility] [address] * (ABNORMAL) Protime-INR (04/23/2025 11:30 AM EDT) Protime 16.2(H) 12.1 - 15.1 seconds 04/23/2025 12:02 PM EDT [facility] INR 1.2(H) 0.9 - 1.1 04/23/2025 12:02 PM EDT [facility] Comment: RECOMMENDED THERAPEUTIC RANGES USING INR : Stable oral anticoagulant therapy: 2.0 - 3.0 Mechanical prosthetic heart valve: 2.5 - 3.5 Recurrent acute myocardial infarction: 2.5 - 3.5 Plasma 04/23/2025 11:3 0 AM EDT 04/23/2025 11:43 AM EDT Jostin Hess MD LAB BLOOD ORDERABLES Final Result [facility] [address] [facility]. [address] * Lactic Acid (04/23/2025 11:30 AM EDT) Lactate 1.0 0.5 - 2.2 mmol/L 04/23/2025 12:09 PM EDT [facility] Plasma 04/23/2025 11:3 0 AM EDT 04/23/2025 11:43 AM EDT Jostin Hess MD LAB BLOOD ORDERABLES Final Result [facility] [address] [facility] [place] [address], [facility] * (ABNORMAL) Hepatic Function Panel (04/23/2025 11:30 AM EDT) Total Bilirubin 2.7(H) 0.0 - 1.5 mg/dL 04/23/2025 12:22 PM EDT [facility] Bilirubin, Direct 2.09(H) 0.00 - 0.40 mg/dL 04/23/2025 12:22 PM EDT [facility] AST 65(H) 13 - 39 U/L 04/23/2025 12:22 PM EDT [facility] ALT 78(H) 7 - 52 U/L 04/23/2025 12:22 PM EDT [facility] Alkaline Phosphatase 55 36 - 125 U/L 04/23/2025 12:22 PM EDT [facility] Total Protein 3.6(L) 6.4 - 8.9 g/dL 04/23/2025 12:22 PM EDT [facility] Albumin 2.3(L) 3.5 - 5.7 g/dL 04/23/2025 12:22 PM EDT [facility] Bilirubin, Indirect 0.61 0.00 - 1.10 mg/dL 04/23/2025 12:22 PM EDT [facility] Plasma 04/23/2025 11:3 0 AM EDT 04/23/2025 11:43 AM EDT Jostin Hess MD LAB BLOOD ORDERABLES Final Result [facility] [address] [facility] [place] [address], [facility] * (ABNORMAL) CBC (04/23/2025 11:30 AM EDT) WBC 5.0 3.8 - 10.8 10E3/uL 04/23/2025 1:02 PM EDT [facility] RBC 3.55(L) 3.80 - 5.10 10E6/uL 04/23/2025 1:02 PM EDT [facility] Hemoglobin 10.7(L) 11.7 - 15.5 g/dL 04/23/2025 1:02 PM EDT [facility] Hematocrit 30.5(L) 35.0 - 45.0 % 04/23/2025 1:02 PM EDT [facility] MCV 86.0 80.0 - 100.0 fL 04/23/2025 1:02 PM EDT [facility] MCH 30.2 27.0 - 33.0 pg 04/23/2025 1:02 PM EDT [facility] MCHC 35.1 32.0 - 36.0 g/dL 04/23/2025 1:02 PM EDT [facility] RDW 16.5(H) 11.0 - 15.0 % 04/23/2025 1:02 PM EDT [facility] Platelets 47(L) 140 - 400 10E3/uL 04/23/2025 1:02 PM EDT [facility] Comment:CNV MPV 9.2 7.5 - 11.5 fL 04/23/2025 1:02 PM EDT [facility] Whole Blood 04/23/2025 11:3 0 AM EDT 04/23/2025 12:02 PM EDT Jostin Hess MD LAB BLOOD ORDERABLES Final Result [facility] [address] * (ABNORMAL) Renal Function Panel w/EGFR (04/23/2025 11:30 AM EDT) Sodium 137 133 - 146 mmol/L 04/23/2025 12:22 PM EDT [facility] Potassium 5.1 3.5 - 5.3 mmol/L 04/23/2025 12:22 PM EDT [facility] Chloride 106 98 - 110 mmol/L 04/23/2025 12:22 PM EDT [facility] CO2 26 21 - 33 mmol/L 04/23/2025 12:22 PM EDT [facility] Comment:High lactate dehydro genase concentrations in patient samples may cause falsely increased bicarbonate results. If markedly elevated LDH is observed or suspected, please assess results in conjunction with patient`s clinical presentation. In cases of discrepant results, consider evaluating CO2 in with a blood gas order. Anion Gap 5 3 - 16 mmol/L 04/23/2025 12:22 PM EDT [facility] BUN 30(H) 7 - 25 mg/dL 04/23/2025 12:22 PM EDT [facility] Creatinine 0.99 0.60 - 1.30 mg/dL 04/23/2025 12:22 PM EDT [facility] Glucose 159(H) 70 - 100 mg/dL 04/23/2025 12:22 PM EDT [facility] Calcium 8.8 8.6 - 10.3 mg/dL 04/23/2025 12:22 PM EDT [facility] Phosphorus 5.0(H) 2.1 - 4.7 mg/dL 04/23/2025 12:22 PM EDT [facility] Albumin 2.3(L) 3.5 - 5.7 g/dL 04/23/2025 12:22 PM EDT [facility] Osmolality, Calculated 294 278 - 305 mOsm/kg 04/23/2025 12:22 PM EDT [facility] EGFR 76 04/23/2025 12:22 PM EDT [facility] Comment:As of 2021, the estimated GFR [...] Disease. Am J Kidney Dis. 2020. Plasma 04/23/2025 11:3 0 AM EDT 04/23/2025 11:43 AM EDT MakenzieEvelyne Hess MD LAB BLOOD ORDERABLES Final Result Performing Organization Address City/[facility]/ZIP Co de Phone Number [facility] [address] [facility]. [address] * Magnesium (04/23/2025 11:30 AM EDT) Magnesium 2.4 1.5 - 2.5 mg/dL 04/23/2025 12:22 PM EDT [facility] Plasma 04/23/2025 11:3 0 AM EDT 04/23/2025 11:43 AM EDT us Jostin Hess MD LAB BLOOD ORDERABLES Final Result Performing Organization Address [facility] Co de Phone Number [facility] [address] [facility]. [address] * (ABNORMAL) POC Glucose Monitoring Device (04/23/2025 11:29 AM EDT) [facility] POC Glucose Monitoring Device 159(H) 70 - 100 mg/dL 04/23/2025 11:30 AM EDT [facility] Blood 04/23/2025 11:2 9 AM EDT 04/23/2025 11:30 AM EDT us Ludin Jose MD POINT OF CARE TEST ORDERABLES Fi nal Result Performing Organization Address City/[facility]/ZIP Co de Phone Number [facility] [address] [place] [address]. [address] * Prepare Fresh Frozen Plasma, 4 Units (04/23/2025 11:13 AM EDT) Product Code Q1116O14 HCLL Unit Number [id number] HCLL Dispense Status Released from [employer] HCLL Blood Expiration Date HCLL Coding System [id number] HCLL Product Code S5053W05 HCLL Unit Number [id number] HCLL Dispense Status Released from [employer] HCLL Blood Expiration Date HCLL Coding System BRQU171 [facility] Product Code C9632F41 [facility] Unit Number [id number] [facility] Dispense Status Released from Crossmatch_RE [facility]LL Blood Expiration Date HCLL Coding System [id number] [facility] Product Code T4714P70 [facility] Unit Number [id number] [facility] Dispense Status Released from Crossmatch_RE [facility]LL Blood Expiration Date HCLL Coding System WHMS073 [facility] Product Code U5359H71 [facility] Unit Number [id number] [facility] Dispense Status Released from Crossmatch_RE [facility]LL Blood Expiration Date HCLL Coding System [id number] HCLL Product Code P0688D71 HCLL Unit Number [id number] HCLL Dispense Status Released from Crossmatch_RE HCLL Blood Expiration Date HCLL Coding System [id number] HCLL Blood Bank Product us Catracho Hui MD BLOOD BANK PRODUCT ORDERAB LES Final Result HCLL * Transfuse RBC Transfusion Rate: Per dept routine (04/23/2025 10:50 AM EDT) Gloria Chen MD NURSING TREATMENT ORDERABLES - B LOOD ADMIN Final Result EXTERNAL * Routine Culture plus Stain (Surgical Swab) (04/23/2025 9:53 AM EDT) Gram Stain Result Rare Polymorphonuclear Leukocytes Seen [facility] Gram Stain Result No Organisms Seen; [facility] Culture Result No Growth After 3 Days [facility] Swab (specimen) ABDOMEN / Unknown 025 9:53 AM EDT Comment:Ascities fluid swab Narrative [facility] - 04/26/2025 8:57 AM EST Ascities fluid swab Ascities fluid swab 1 Alejandra Wilson MD MICROBIOLOGY - GENERAL ORDER RANDALL Final Result [facility] [address] * Fungus culture (Surgical Swab) (04/23/2025 9:53 AM EDT) Culture Result No Fungus Isolated At 4 Weeks [facility] Swab (specimen) ABDOMEN / Unknown 025 9:53 AM EDT Comment:Ascities fluid swab Narrative [facility] - 05/23/2025 8:20 AM EST Ascities fluid swab Ascities fluid swab 1 Alejandra Wilson MD MICROBIOLOGY - GENERAL ORDER RANDALL Final Result [facility] [address] [place], [place] [address]ue [facility]. [address] * Anaerobic culture (Surgical Swab) (04/23/2025 9:53 AM EDT) Culture Result No Anaerobes Isolated in 5 Days [facility] Swab (specimen) ABDOMEN / Unknown 025 9:53 AM EDT Comment:Ascities fluid swab Narrative [facility] - 04/28/2025 12:31 PM EST Ascities fluid swab Ascities fluid swab 1 Alejandra Wilson MD MICROBIOLOGY - GENERAL ORDER RANDALL Final Result [facility] [address] [place] [address]. [address] * TEG-Bypass/ECMO/Liver HN (Factor function, Platelet/Fibrin Clot Strength w/Clot Breakdown, Heparinase In All Channels) (04/23/2025 9:37 AM EDT) Citrated Kaolin Reaction Time (TEGECMOLIVER) 5.6 4.6 - 9.1 minutes 04/23/2025 10:51 AM EDT [facility] Citrated Kaolin W/Heparinase Reaction Time (TEGECMOLIVER) 4.7 4.3 - 8.3 minutes 04/23/2025 10:51 AM EDT [facility] Citrated Kaolin Maximum Amplitude (TEGECMOLIVER) 58.2 52.0 - 69.0 mm 04/23/2025 10:51 AM EDT [facility] Citrated Functional Fibrinogen W/Heparinase Maximum Amplitude(TEGEC MOLIVER) 18.0 15.0 - 34.0 mm 04/23/2025 10:51 AM EDT [facility] Citrated Rapid Teg W/Heparinase Maximum Amplitude (TEGECMOLIVER) 54.9 53.0 - 69.0 mm 04/23/2025 10:51 AM EDT [facility] Citrated Kaolin w/Heparinase Percent Lysis (TEGECMOLIVER) 0.0 0.0 - 3.2 % 04/23/2025 10:51 AM EDT [facility] Whole Blood (Citrate) 04/23/2025 9:37 AM EDT 04/23/2025 9:46 AM EDT us Catracho Hui MD LAB BLOOD ORDERABLES Final Result Performing Organization Address City/State/[facility] Co de Phone Number [facility] [address] * (ABNORMAL) Arterial Blood Gas Panel (04/23/2025 9:37 AM EDT) O2Sat (ABGP) 99 04/23/2025 9:50 AM EDT [facility] pH (ABGP) 7.34(L) 7.35 - 7.45 04/23/2025 9:50 AM EDT [facility] PCO2 (ABGP) 43 35 - 45 mm Hg 04/23/2025 9:50 AM EDT [facility] PO2 (ABGP) 179(H) 80 - 100 mm Hg 04/23/2025 9:50 AM EDT [facility] HCO3 (ABGP) 23 22 - 26 mmol/L 04/23/2025 9:50 AM EDT [facility] CO2 Content (ABGP) 25 23 - 27 mmol/L 04/23/2025 9:50 AM EDT [facility] Base Excess (ABGP) -2.5(L) -2.0 - 3.0 mmol/L 04/23/2025 9:50 AM EDT [facility] Sodium (ABGP) 133(L) 136 - 146 mEq/L 04/23/2025 9:50 AM EDT [facility] Potassium (ABGP) 5.1(H) 3.5 - 5.0 mEq/L 04/23/2025 9:50 AM EDT [facility] Comment:In the event of in-v itro hemolysis, potassium results may be falsely elevated. Always interpret lab results in conjunction with clinical findings. If hemolysis is suspected, a serum sample may be collected for repeat assessment of potassium. Calcium, Free (ABGP) 4.56 4.50 - 5.30 mg/dL 04/23/2025 9:50 AM EDT [facility] Glucose (ABGP) 157(H) 70 - 100 mg/dL 04/23/2025 9:50 AM EDT [facility] Comment:There is interferenc e with whole blood glucose results on this method when Hematocrit is <25% or >60%. HCT (ABGP) 27.0(L) 35.0 - 45.0 % 04/23/2025 9:50 AM EDT [facility] HGB (ABGP) 9.0(L) 12.0 - 16.0 g/dL 04/23/2025 9:50 AM T [facility] %HBO2 (ABGP) 97.8 95.0 - 98.0 % 04/23/2025 9:50 AM EDT [facility] Carboxyhgb (ABGP) 1.4 % 025 9:50 AM T [facility] Comment: CARBOXYHEMOGLOBIN (CO) REFERENCE RANGES: Non-Smokers: <2 % Smokers: <8 % TOXIC: >20 % Methemoglobin (ABGP) 0.0 0.0 - 1.5 % 04/23/2025 9:50 AM EDT [facility] Lactic Acid (ABGP) 1.7(H) 0.5 - 1.6 mmol/L 04/23/2025 9:50 AM T [facility] Blood, Arterial 04/23/2025 9 :37 AM EDT 04/23/2025 9:46 AM EDT us Catracho Hui MD LAB BLOOD ORDERABLES Final Result [facility] [address] [place] [address], [facility] * Transfuse RBC Transfusion Rate: Per dept routine (04/23/2025 9:02 AM EDT) us Moe Luis MD NURSING TREATMENT ORDE BRIATNY - BLOOD ADMIN Final Result EXTERNAL * XR Portable Feeding Tube Check (04/23/2025 8:48 AM EDT) Anatomical Region Laterality Modality Abdomen, Chest Radiographic Radha ging 04/23/2025 8:40 AM EDT Impressions 04/23/2025 9:50 AM EDT IMPRESSION: Enteric tube tip overlies the gastric body with the sidehole at or just below the expected location of the gastroesophageal junction. Mild gaseous distention of the stomach and small bowel partially imaged could represent ileus Report Verified by: Seble Crawford MD at 04/23/2025 9:50 AM EDT Narrative 04/23/2025 9:50 AM EDT EXAM: XR PORTABLE FEEDING TUBE CHECK INDICATION: NGT placed TECHNIQUE: AP radiograph of the upper abdomen COMPARISON: 04/18/2025 FINDINGS: Postsurgical changes in the right upper quadrant related to recent liver transplant. Enteric tube tip overlies the gastric body with the sidehole at or just below the expected location of the gastroesophageal junction. There is mild gaseous dilation of the stomach and partially imaged and large bowel. Procedure Note Seble Crawford MD - 04/23/2025 EXAM: XR PORTABLE FEEDING TUBE CHECK INDICATION: NGT placed TECHNIQUE: AP radiograph of the upper abdomen COMPARISON: 04/18/2025 FINDINGS: Postsurgical changes in the right upper quadrant related to recent livertransplant. Enteric tube tip overlies the gastric body with the sideholeat or just below the expected location of the gastroesophageal junction.There is mild gaseous dilation of the stomach and partially imaged andlarge bowel. IMPRESSION: Enteric tube tip overlies the gastric body with the sidehole at or justbelow the expected location of the gastroesophageal junction. Mild gaseous distention of the stomach and small bowel partially imagedcould represent ileus Report Verified by: Seble Crawford MD at 04/23/2025 9:50 AM EDT us Moe Luis MD IMG DIAGNOSTIC IMAGING ORDERABLES Final Result * X-ray Portable Chest (04/23/2025 8:47 AM EDT) Anatomical Region Laterality Modality Chest Radiographic Radha ging 04/23/2025 7:31 AM EDT Impressions 04/23/2025 11:08 AM EDT IMPRESSION: 1. Retracted enteric tube with tip projecting over the distal esophagus. 2. Otherwise, no significant interval change. Report Verified by: Anuj Chavarria DO at 04/23/2025 11:08 AM EDT Narrative 04/23/2025 11:08 AM EDT EXAM: XR PORTABLE CHEST INDICATION: Other - Must Specify in Comments; post arrest TECHNIQUE: 1 view of the chest. COMPARISON: 04/23/2025 FINDINGS: Medical Devices: Endotracheal tube tip projects over the mid to lower trachea. Enteric tube tip projects over the distal esophagus. External defibrillator pads. Surgical drain projects over the right upper quadrant. Right upper extremity PICC tip projects over the cavoatrial junction. Heart and Mediastinum: Unchanged. Lungs and Pleura: No significant change in mild bibasilar atelectasis. No large pleural effusions. No pneumothorax. Bones and Soft tissues: Unchanged. Procedure Note Anuj Chavarria DO - 04/23/2025 EXAM: XR PORTABLE CHEST INDICATION: Other - Must Specify in Comments; post arrest TECHNIQUE: 1 view of the chest. COMPARISON: 04/23/2025 FINDINGS: Medical Devices: Endotracheal tube tip projects over the mid to lowertrachea. Enteric tube tip projects over the distal esophagus. Externaldefibrillator pads. Surgical drain projects over the right upper quadrant.Right upper extremity PICC tip projects over the cavoatrial junction. Heart and Mediastinum: Unchanged. Lungs and Pleura: No significant change in mild bibasilar atelectasis. Nolarge pleural effusions. No pneumothorax. Bones and Soft tissues: Unchanged. IMPRESSION: 1. Retracted enteric tube with tip projecting over the distalesophagus. 2. Otherwise, no significant interval change. Report Verified by: Anuj Chavarria DO at 04/23/2025 11:08 AM EDT us Julius Becerra MD IMG DIAGNOSTIC IMAGING ORDERABLE S Final Result * TEG-Bypass/ECMO/Liver HN (Factor function, Platelet/Fibrin Clot Strength w/Clot Breakdown, Heparinase In All Channels) (04/23/2025 8:31 AM EDT) Citrated Kaolin Reaction Time (TEGECMOLIVER) 6.4 4.6 - 9.1 minutes 04/23/2025 9:39 AM EDT [facility] Citrated Kaolin W/Heparinase Reaction Time (TEGECMOLIVER) 5.5 4.3 - 8.3 minutes 04/23/2025 9:39 AM EDT [facility] Citrated Kaolin Maximum Amplitude (TEGECMOLIVER) 63.3 52.0 - 69.0 mm 04/23/2025 9:39 AM EDT [facility] Citrated Functional Fibrinogen W/Heparinase Maximum Amplitude(TEGEC MOLIVER) 20.8 15.0 - 34.0 mm 04/23/2025 9:39 AM EDT [facility] Citrated Rapid Teg W/Heparinase Maximum Amplitude (TEGECMOLIVER) 60.0 53.0 - 69.0 mm 04/23/2025 9:39 AM EDT [facility] Citrated Kaolin w/Heparinase Percent Lysis (TEGECMOLIVER) 0.0 0.0 - 3.2 % 04/23/2025 9:39 AM EDT [facility] Whole Blood (Citrate) 04/23/2025 8:31 AM EDT 04/23/2025 8:34 AM EDT us Julius Becerra MD LAB BLOOD ORDERABLES Final Resul t [facility] [address] [id number], [facility] * (ABNORMAL) CBC (04/23/2025 8:31 AM EDT) WBC 6.6 3.8 - 10.8 10E3/uL 04/23/2025 9:22 AM EDT [facility] RBC 2.22(L) 3.80 - 5.10 10E6/uL 04/23/2025 9:22 AM EDT [facility] Hemoglobin 6.7(L) 11.7 - 15.5 g/dL 04/23/2025 9:22 AM EDT [facility] Hematocrit 18.5(L) 35.0 - 45.0 % 04/23/2025 9:22 AM EDT [facility] MCV 83.4 80.0 - 100.0 fL 04/23/2025 9:22 AM EDT [facility] MCH 30.1 27.0 - 33.0 pg 04/23/2025 9:22 AM EDT [facility] MCHC 36.1(H) 32.0 - 36.0 g/dL 04/23/2025 9:22 AM EDT [facility] RDW 16.7(H) 11.0 - 15.0 % 04/23/2025 9:22 AM EDT [facility] Platelets 85(L) 140 - 400 10E3/uL 04/23/2025 9:22 AM EDT [facility] MPV 9.3 7.5 - 11.5 fL 04/23/2025 9:22 AM EDT [facility] Whole Blood 04/23/2025 8:31 AM EDT 04/23/2025 8:50 AM EDT Julius Becerra MD LAB BLOOD ORDERABLES Final Resul t [facility] [address] * TEG-Bypass/ECMO/Liver HN (Factor function, Platelet/Fibrin Clot Strength w/Clot Breakdown, Heparinase In All Channels) (04/23/2025 7:45 AM EDT) Citrated Kaolin Reaction Time (TEGECMOLIVER) 5.6 4.6 - 9.1 minutes 04/23/2025 9:05 AM EDT [facility] Citrated Kaolin W/Heparinase Reaction Time (TEGECMOLIVER) 4.4 4.3 - 8.3 minutes 04/23/2025 9:05 AM EDT [facility] Citrated Kaolin Maximum Amplitude (TEGECMOLIVER) 63.6 52.0 - 69.0 mm 04/23/2025 9:05 AM EDT [facility] Citrated Functional Fibrinogen W/Heparinase Maximum Amplitude(TEGEC MOLIVER) 21.1 15.0 - 34.0 mm 04/23/2025 9:05 AM EDT [facility] Citrated Rapid Teg W/Heparinase Maximum Amplitude (TEGECMOLIVER) 61.0 53.0 - 69.0 mm 04/23/2025 9:05 AM EDT [facility] Citrated Kaolin w/Heparinase Percent Lysis (TEGECMOLIVER) 0.0 0.0 - 3.2 % 04/23/2025 9:05 AM EDT [facility] Whole Blood (Citrate) 04/23/2025 7:45 AM EDT 04/23/2025 7:55 AM EDT us Julius Becerra MD LAB BLOOD ORDERABLES Final Resul t Performing Organization Address City/State/[facility] Co de Phone Number [facility] [address] * (ABNORMAL) Blood gas, arterial (04/23/2025 7:45 AM EDT) O2 Sat, Arterial 99 04/23/2025 8:00 AM EDT [facility] FIO2 60% 04/23/2025 8:00 AM EDT [facility] pH, Arterial 7.36 7.35 - 7.45 04/23/2025 8:00 AM EDT [facility] pCO2, Arterial 42 35 - 45 mm Hg 04/23/2025 8:00 AM EDT [facility] pO2, Arterial 119(H) 80 - 100 mm Hg 04/23/2025 8:00 AM EDT [facility] HCO3, Arterial 24 22 - 26 mmol/L 04/23/2025 8:00 AM EDT [facility] CO2 Content,Arteri al 25 23 - 27 mmol/L 04/23/2025 8:00 AM EDT [facility] Base Excess, Arterial -1.6 -2.0 - 3.0 mmol/L 04/23/2025 8:00 AM EDT [facility] %HBO2, Arterial 96.9 95.0 - 98.0 % 04/23/2025 8:00 AM EDT [facility] Carboxyhemoglo bin, Arterial 1.4 % 04/23/2025 8:00 AM EDT [facility] Comment: CARBOXYHEMOGLOBIN (CO) REFERENCE RANGES: Non-Smokers: <2 % Smokers: <8 % TOXIC: >20 % Methemoglobin, Arterial 0.6 0.0 - 1.5 % 04/23/2025 8:00 AM EDT [facility] Blood, Arterial 04/23/2025 7 :45 AM EDT 04/23/2025 7:55 AM EDT us Julius Becerra MD LAB BLOOD ORDERABLES Final Resul t Performing Organization Address [facility] Co de Phone Number [facility] [address] [facility]. [address] * (ABNORMAL) Hemoglobin, Blood Gas (04/23/2025 7:45 AM EDT) Hgb, blood gas 6.6(L) 12.0 - 16.0 g/dL 04/23/2025 8:00 AM EDT [facility] Blood, Arterial 04/23/2025 7 :45 AM EDT 04/23/2025 7:55 AM EDT us Julius Becerra MD LAB BLOOD ORDERABLES Final Resul t Performing Organization Address [facility] Co de Phone Number [facility] [address] [facility]. [address] * Lactic acid, ABG (04/23/2025 7:45 AM EDT) Lactate, Art 1.6 0.5 - 1.6 mmol/L 04/23/2025 8:00 AM EDT [facility] Blood, Arterial 04/23/2025 7 :45 AM EDT 04/23/2025 7:55 AM EDT us Julius Becerra MD LAB BLOOD ORDERABLES Final Resul t Performing Organization Address City/[facility] Co de Phone Number [facility] [address] * Tacrolimus level (04/23/2025 7:45 AM EDT) Tacrolimus (LC-MS) 9.3 3.0 - 15.0 ng/mL 04/23/2025 12:16 PM EDT [facility] Comment:Performed via liquid chromatography tandem mass spectrometry. Detection limit: 1 ng/mL. Individual target concentrations may vary due to target organ and time after transplant. This test has been developed and its performance characteristics determined by [facility] which is certified under the Clinical Laboratory Improvement Amendment of 1988 (CLIA-88) to perform high complexity testing. The test has not been cleared or approved by the US Food and Drug Administration (FDA). The FDA has determined that such clearance is not necessary. The test should be used for clinical purposes and is not regarded as investigational. Whole Blood 04/23/2025 7:45 AM EDT 04/23/2025 7:58 AM EDT us Gloria Chen MD LAB BLOOD ORDERABLES Final Resul t Performing Organization Address [facility] de Phone Number [facility] [address] * Transfuse RBC Transfusion Rate: Per dept routine (04/23/2025 7:31 AM EDT) us Sergey Altman MD NURSING TREATMENT OR DERABLES - BLOOD ADMIN Final Result Performing Organization Address [facility] de Phone Number EXTERNAL * Transfuse RBC Transfusion Rate: Per dept routine, 1 Units (04/23/2025 7:31 AM EDT) us Sergey Altman MD NURSING TREATMENT OR DERABLES - BLOOD ADMIN Final Result Performing Organization Address [facility] de Phone Number EXTERNAL * SMALL BOWEL ENTEROSCOPY (04/23/2025 6:01 AM EDT) 04/23/2025 6:01 AM EDT Narrative [facility] - 04/23/2025 11:33 AM EDT [id number] Procedure Date: 04/23/2025 6:01 AM Patient Name: Mindy Wade Date of : 1990 Admit Type: Inpatient Age: 35 Gender: Female Note Status: Finalized Attending MD: Kelsey Moyer , , [id number] Procedure: Small bowel enteroscopy Indications: Melena Patient Profile: 35-year-old woman post recent right lobe living donor liver transplant with Edna-en-Y hepatojejunostomy 5 days ago (04/18/25) who developed large volume melena and coffee-ground emesis with hypotension and a drop in Hgb. Providers: Kelsey Moyer, Mike Ventura (Fellow) Referring MD: Ludin Jose Medicines: Fentanyl and propofol per primary team Complications: No immediate complications. Procedure: Pre-Anesthesia Assessment: - Prior to the procedure, a History and Physical was performed, and patient medications and allergies were reviewed. The patient is unable to give consent secondary to the patient's altered mental status. The risks and benefits of the procedure and the sedation options and risks were discussed with the patient's spouse. All questions were answered and informed consent was obtained. Patient identification and proposed procedure were verified by the physician, the nurse and the critical care technician in the procedure room. Mental Status Examination: sedated. Airway Examination: normal oropharyngeal airway and neck mobility. Respiratory Examination: clear to auscultation. CV Examination: tachycardia noted. Prophylactic Antibiotics: The patient does not require prophylactic antibiotics. Prior Anticoagulants: The patient has taken no anticoagulant or antiplatelet agents except for aspirin. ASA Grade Assessment: IV - A patient with severe systemic disease that is a constant threat to life. After reviewing the risks and benefits, the patient was deemed in satisfactory condition to undergo the procedure. The anesthesia plan was to use deep sedation / analgesia. Immediately prior to administration of medications, the patient was re-assessed for adequacy to receive sedatives. The heart rate, respiratory rate, oxygen saturations, blood pressure, adequacy of pulmonary ventilation, and response to care were monitored throughout the procedure. The physical status of the patient was re-assessed after the procedure. After obtaining informed consent, the endoscope was passed under direct vision. Throughout the procedure, the patient's blood pressure, pulse, and oxygen saturations were monitored continuously. The Endoscope was introduced through the mouth and advanced to the proximal jejunum. The small bowel enteroscopy was accomplished without difficulty. The patient tolerated the procedure well. Findings: The examined esophagus was normal. Small amount of refluxed red blood but no ulcers, esophagitis, or other abnormalities. A large amount of red blood with clots was found in the entire examined stomach. Once suctioned, there were no identified ulcers, angioectasias, or other sources of bleeding visualized in the stomach. Several large blood clots were found in the second portion of the duodenum, in the third portion of the duodenum, and in the fourth portion of the duodenum. Some of these were suctioned away. There was no active bleeding or sources of bleeding visualized in the duodenum. Blood clots and a small amount of red blood was found in the proximal jejunum without visible source of bleeding. Estimated Blood Loss: Estimated blood loss was minimal. Impression: - Normal esophagus. - Clotted blood in the entire stomach. No active bleeding or sources of bleeding visualized. - Several large blood clots in the second portion of the duodenum, in the third portion of the duodenum, and in the fourth portion of the duodenum. No active bleeding or sources of bleeding visualized. - Small amount of blood with clots in the proximal jejunum. The jejunojejunostomy anastomosis was not visualized. - No specimens collected. Recommendation: - Return patient to ICU for ongoing care. - NPO. - Can stop IV PPI. Resume PO PPI daily. - Monitor for ongoing bleeding. Some continued melena is expected as blood makes it's way through her GI tract. Please contact GI team if recurrent bleeding. - If patient has another drop in Hgb or concerns for active GI bleeding, recommend obtaining a STAT CT abd/pelvis with GI bleed protocol to help identify the source of the bleed. Procedure Code(s): --- Professional --- 46924, GC, Small intestinal endoscopy, enteroscopy beyond second portion of duodenum, not including ileum; diagnostic, including collection of specimen(s) by brushing or washing, when performed (separate procedure) Diagnosis Code(s): --- Professional --- K92.2, Gastrointestinal hemorrhage, unspecified K92.1, Melena (includes Hematochezia) CPT copyright 2022 [employer]. All rights reserved. The codes documented in this report are preliminary and upon reporting developer review may be revised to meet current compliance requirements. Attending Participation: I was present and participated during the entire procedure from insertion to removal of the endoscope. Kelsey Moyer Kelsey Moyer, 04/23/2025 11:32:48 AM Mike Ventura Mike Ventura, 04/23/2025 7:30:40 AM Total Procedure Duration Time 0 hours 51 minutes 31 seconds Scope In: 6:09:10 AM Scope Out: 7:00:[address] [place] [address], [facility] us Ludin Jose MD PROCEDURE/MINOR SURGICAL ORDERAB LES Final Result [facility] * Prepare RBC, leukoreduced (04/23/2025 5:36 AM EDT) Product Code [id number] HCLL Unit Number [id number] HCLL Dispense Status Released from Crossmatch_RE HCLL Blood Expiration Date HCLL Coding System [id number] HCLL Product Code O0323Y69 HCLL Unit Number [id number] HCLL Dispense Status Released from Crossmatch_RE HCLL Blood Expiration Date HCLL Coding System [id number] HCLL Product Code R1571Z45 HCLL Unit Number [id number] HCLL Dispense Status Released from Crossmatch_RE HCLL Blood Expiration Date HCLL Coding System [id number] HCLL Product Code S4548Z36 HCLL Unit Number [id number] HCLL Dispense Status Released from Crossmatch_RE HCLL Blood Expiration Date HCLL Coding System [id number] HCLL Product Code F4318F39 HCLL Unit Number [id number] HCLL Dispense Status Released from Crossmatch_RE HCLL Blood Expiration Date HCLL Coding System [id number] HCLL Product Code A7648X35 HCLL Unit Number [id number] HCLL Dispense Status Released from Crossmatch_RE HCLL Blood Expiration Date HCLL Coding System [id number] HCLL us Attending Provider Unknown BLOOD BANK PRODUCT OR DERABLES Final Result HCLL * Prepare Fresh Frozen Plasma (04/23/2025 5:33 AM EDT) Product Code [id number] HCLL Unit Number [id number] HCLL Dispense Status Released from Crossmatch_RE HCLL Blood Expiration Date HCLL Coding System [id number] HCLL Product Code C6813P85 HCLL Unit Number [id number] HCLL Dispense Status Released from Crossmatch_RE HCLL Blood Expiration Date HCLL Coding System [id number] HCLL Product Code H3676C41 HCLL Unit Number [id number] HCLL Dispense Status Released from Crossmatch_RE HCLL Blood Expiration Date HCLL Coding System [id number] HCLL Product Code J9671H51 HCLL Unit Number [id number] HCLL Dispense Status Released from Crossmatch_RE HCLL Blood Expiration Date HCLL Coding System [id number] HCLL Product Code J9984N49 HCLL Unit Number [id number] HCLL Dispense Status Released from Crossmatch_RE HCLL Blood Expiration Date HCLL Coding System [id number] HCLL Product Code V1302J58 HCLL Unit Number [id number] HCLL Dispense Status Released from Crossmatch_RE HCLL Blood Expiration Date HCLL Coding System [id number] HCLL us Attending Provider Unknown BLOOD BANK PRODUCT OR DERABLES Final Result HCLL * CENTRAL LINE SINGLE LUMEN PERFORMABLE (04/23/2025 5:14 AM EDT) Narrative Manuela Lang MD - 04/23/2025 5:14 AM EDT Manuela Lang MD 04/23/2025 5:16 AM Central Line Date/Time: 04/23/2025 5:14 AM Performed by: HOLGER Franklinonsent: The procedure was performed in an emergent situation Catheter type: double lumen Indication(s): vascular access Patient location at time of line placement: ICU Conditions of line placement: sterile Preparation: skin prepped with 2% chlorhexidine Location details: left femoral Catheter size: 9 Fr Catheter fully inserted (hub at skin): yes Insertion guided by: anatomical landmarks Number of attempts: 1 Successful placement: yes Sutured: 3-0 Post procedure chest x-ray ordered: no Complications: none us Manuela Lang MD PROCEDURE/MINOR SURGICAL ORDERAB LES Final Result * Insert Arterial Line (04/23/2025 4:53 AM EDT) Narrative Manuela Lang MD - 04/23/2025 4:53 AM EDT Manuela Lang MD 04/23/2025 5:12 AM Insert Arterial Line Date/Time: 04/23/2025 4:53 AM Performed by: Drea Campbell MD Authorized by: Manuela Lang MD Consent: Consent obtained: Emergent situation [place] protocol: Patient identity confirmed: Hospital-assigned identification number and arm band Indications: Indications: hemodynamic monitoring and multiple ABGs Pre-procedure details: Skin preparation: Chlorhexidine Preparation: Patient was prepped and draped in sterile fashion Sedation: Sedation type: None Anesthesia: Anesthesia method: Local infiltration Local anesthetic: Lidocaine 1% w/o epi Procedure details: Laterality: Right Location: Femoral artery Donte's test performed: no Needle gauge: 18 G Placement technique: Ultrasound guided Number of attempts: 4 Transducer: waveform confirmed Post-procedure details: Post-procedure: Biopatch applied, secured with tape and sterile dressing applied Procedure completion: Tolerated well, no immediate complications Comments: Initial 3 attempts were in the R radial site. Procedure aborted due to not having good enough blood flow with catheter in place. Manuela Lang MD IV THERAPY ORDERABLES Final Resu lt * Magnesium, STAT (04/23/2025 4:26 AM EDT) Magnesium 2.4 1.5 - 2.5 mg/dL 04/23/2025 5:09 AM EDT [facility] Plasma 04/23/2025 4:26 AM EDT 04/23/2025 4:40 AM EDT Sergey Altman MD LAB BLOOD ORDERABLES Final Result [facility] [address] [id number] * (ABNORMAL) TEG-Bypass/ECMO/Liver HN (Factor function, Platelet/Fibrin Clot Strength w/Clot Breakdown, Heparinase In All Channels) (04/23/2025 4:26 AM EDT) Citrated Kaolin Reaction Time (TEGECMOLIVER) 6.3 4.6 - 9.1 minutes 04/23/2025 5:55 AM EDT [facility] Citrated Kaolin W/Heparinase Reaction Time (TEGECMOLIVER) 5.4 4.3 - 8.3 minutes 04/23/2025 5:55 AM EDT [facility] Citrated Kaolin Maximum Amplitude (TEGECMOLIVER) 48.6(L) 52.0 - 69.0 mm 04/23/2025 5:55 AM EDT [facility] Citrated Functional Fibrinogen W/Heparinase Maximum Amplitude(TEGEC MOLIVER) 11.0(L) 15.0 - 34.0 mm 04/23/2025 5:55 AM EDT [facility] Citrated Rapid Teg W/Heparinase Maximum Amplitude (TEGECMOLIVER) 45.5(L) 53.0 - 69.0 mm 04/23/2025 5:55 AM EDT [facility] Citrated Kaolin w/Heparinase Percent Lysis (TEGECMOLIVER) 0.0 0.0 - 3.2 % 04/23/2025 5:55 AM EDT [facility] Whole Blood (Citrate) 04/23/2025 4:26 AM EDT 04/23/2025 4:32 AM EDT Sergey Altman MD LAB BLOOD ORDERABLES Final Result [facility] [address] * (ABNORMAL) CBC, STAT (04/23/2025 4:26 AM EDT) WBC 11.4(H) 3.8 - 10.8 10E3/uL 04/23/2025 4:50 AM EDT [facility] RBC 3.32(L) 3.80 - 5.10 10E6/uL 04/23/2025 4:50 AM EDT [facility] Hemoglobin 9.6(L) 11.7 - 15.5 g/dL 04/23/2025 4:50 AM EDT [facility] Hematocrit 28.4(L) 35.0 - 45.0 % 04/23/2025 4:50 AM EDT [facility] MCV 85.4 80.0 - 100.0 fL 04/23/2025 4:50 AM EDT [facility] MCH 28.9 27.0 - 33.0 pg 04/23/2025 4:50 AM EDT [facility] MCHC 33.9 32.0 - 36.0 g/dL 04/23/2025 4:50 AM EDT [facility] RDW 16.4(H) 11.0 - 15.0 % 04/23/2025 4:50 AM EDT [facility] Platelets 56(L) 140 - 400 10E3/uL 04/23/2025 4:50 AM EDT [facility] MPV 9.1 7.5 - 11.5 fL 04/23/2025 4:50 AM EDT [facility] Whole Blood 04/23/2025 4:26 AM EDT 04/23/2025 4:40 AM EDT Sergey Altman MD LAB BLOOD ORDERABLES Final Result Performing Organization Address [facility] Co de Phone Number [facility] [address] [facility]. [address] * Calcium Free, Serum (04/23/2025 4:26 AM EDT) [facility] Free Calcium, Ser 4.79 4.40 - 5.40 mg/dL 04/23/2025 5:05 AM EDT [facility] Comment:Free calcium levels vary inversely with pH by approximately 5% for each 0.1 unit of pH change. Assay results have been normalized to pH = 7.40. Serum 04/23/2025 4:26 AM EDT 04/23/2025 4:40 AM EDT Narrative [facility] - 04/23/2025 5:05 AM EDT This test has been developed and its performance characteristics determined by [facility] which is certified under the Clinical Laboratory Improvement Amendment of 1988 (CLIA-88) to perform high complexity testing. The test has not been cleared or approved by the US Food and Drug Administration (FDA). The FDA has determined that such clearance is not necessary. The test should be used for clinical purposes and is not regarded as investigational. Sergey Altman MD LAB BLOOD ORDERABLES Final Result Performing Organization Address [facility]/ZIP Co de Phone Number [facility] [address] * (ABNORMAL) Hepatic Function Panel, STAT (04/23/2025 4:26 AM EDT) Total Bilirubin 1.4 0.0 - 1.5 mg/dL 04/23/2025 5:09 AM EDT [facility] Bilirubin, Direct 0.92(H) 0.00 - 0.40 mg/dL 04/23/2025 5:09 AM EDT [facility] AST 59(H) 13 - 39 U/L 04/23/2025 5:09 AM EDT [facility] ALT 81(H) 7 - 52 U/L 04/23/2025 5:09 AM EDT [facility] Alkaline Phosphatase 63 36 - 125 U/L 04/23/2025 5:09 AM EDT [facility] Total Protein 3.4(L) 6.4 - 8.9 g/dL 04/23/2025 5:09 AM EDT [facility] Albumin 2.2(L) 3.5 - 5.7 g/dL 04/23/2025 5:09 AM EDT [facility] Bilirubin, Indirect 0.48 0.00 - 1.10 mg/dL 04/23/2025 5:09 AM EDT [facility] Plasma 04/23/2025 4:26 AM EDT 04/23/2025 4:40 AM EDT us Sergey Altman MD LAB BLOOD ORDERABLES Final Result Performing Organization Address City/State/[facility] Co de Phone Number [facility] [address] * (ABNORMAL) Renal Function Panel w/EGFR, STAT (04/23/2025 4:26 AM EDT) Sodium 137 133 - 146 mmol/L 04/23/2025 5:09 AM EDT [facility] Potassium 4.6 3.5 - 5.3 mmol/L 04/23/2025 5:09 AM EDT [facility] Chloride 109 98 - 110 mmol/L 04/23/2025 5:09 AM EDT [facility] CO2 23 21 - 33 mmol/L 04/23/2025 5:[address] [facility] Comment:High lactate dehydro genase concentrations in patient samples may cause falsely increased bicarbonate results. If markedly elevated LDH is observed or suspected, please assess results in conjunction with patient`s clinical presentation. In cases of discrepant results, consider evaluating CO2 in with a blood gas order. Anion Gap 5 3 - 16 mmol/L 04/23/2025 5:09 AM EDT [facility] BUN 39(H) 7 - 25 mg/dL 04/23[facility]2025 5[facility] Creatinine 1.32(H) 0.60 - 1.30 mg/dL 04/23/2025 5:[facility] Glucose 152(H) 70 - 100 mg/dL 04/23/2025 5:09 AM T [facility] Calcium 8.1(L) 8.6 - 10.3 mg/dL 04/23/2025 5:[facility] Phosphorus 7.0(H) 2.1 - 4.7 mg/dL 04/23/2025 5:[facility] Albumin 2.2(L) 3.5 - 5.7 g/dL 04/23/2025 5:[address] [facility] Osmolality, Calculated 296 278 - 305 mOsm/kg 04/23/2025 5:[address] [facility] EGFR 54 04/23/2025 5:[address] [facility] Comment:As of 2021, the estimated [...] Disease. Am J Kidney Dis. 2020. Plasma 04/23/2025 4:26 AM EDT 04/23/2025 4:40 AM EDT Sergey Altman MD LAB BLOOD ORDERABLES Final Result Performing Organization Address [facility] Co de Phone Number [facility] [address] [facility]. [address] * Lactic Acid, STAT (04/23/2025 4:26 AM EDT) Lactate 1.3 0.5 - 2.2 mmol/L 04/23/2025 5:05 AM EDT [facility] Plasma 04/23/2025 4:26 AM EDT 04/23/2025 4:40 AM EDT Sergey Altman MD LAB BLOOD ORDERABLES Final Result Performing Organization Address [facility] de Phone Number [facility] [address] * (ABNORMAL) Sodium, Blood Gas (04/23/2025 4:26 AM EDT) Sodium, Blood Gas 131(L) 136 - 146 mEq/L 04/23/2025 4:37 AM EDT [facility] Blood, Arterial 04/23/2025 4 :26 AM EDT 04/23/2025 4:32 AM EDT Sergey Altman MD LAB BLOOD ORDERABLES Final Result Performing Organization Address [facility] Co de Phone Number [facility] [address] [facility]. [address] * Potassium, Blood Gas (04/23/2025 4:26 AM EDT) Potassium, Blood Gas 4.6 3.5 - 5.0 mEq/L 04/23/2025 4:37 AM EDT [facility] Comment:In the event of in-v itro hemolysis, potassium results may be falsely elevated. Always interpret lab results in conjunction with clinical findings. If hemolysis is suspected, a serum sample may be collected for repeat assessment of potassium. Blood, Arterial 04/23/2025 4 :26 AM EDT 04/23/2025 4:32 AM EDT Sergey Altman MD LAB BLOOD ORDERABLES Final Result Performing Organization Address [facility] Co de Phone Number [facility] [address] [facility]. [address] * Lactic acid, ABG (04/23/2025 4:26 AM EDT) Lactate, Art 1.3 0.5 - 1.6 mmol/L 04/23/2025 4:37 AM EDT [facility] Blood, Arterial 04/23/2025 4 :26 AM EDT 04/23/2025 4:32 AM EDT Sergey Altman MD LAB BLOOD ORDERABLES Final Result Performing Organization Address [facility] Co de Phone Number [facility] [address] * (ABNORMAL) Hemoglobin, Blood Gas (04/23/2025 4:26 AM EDT) Hgb, blood gas 9.9(L) 12.0 - 16.0 g/dL 04/23/2025 4:37 AM EDT [facility] Blood, Arterial 04/23/2025 4 :26 AM EDT 04/23/2025 4:32 AM EDT Sergey Altman MD LAB BLOOD ORDERABLES Final Result Performing Organization Address [facility] de Phone Number [facility] [address] [facility]. [address] * (ABNORMAL) Hematocrit, Blood Gas (04/23/2025 4:26 AM EDT) Hct, blood gas 30.0(L) 35.0 - 45.0 % 04/23/2025 4:37 AM EDT [facility] Blood, Arterial 04/23/2025 4 :26 AM EDT 04/23/2025 4:32 AM EDT Sergey Altman MD LAB BLOOD ORDERABLES Final Result Performing Organization Address [facility] Co de Phone Number [facility] [address] * Calcium Ionized, Whole Blood (04/23/2025 4:26 AM EDT) Free Calcium, WB 5.15 4.50 - 5.30 mg/dL 04/23/2025 4:37 AM EDT [facility] Blood, Arterial 04/23/2025 4 :26 AM EDT 04/23/2025 4:32 AM EDT Sergey Altman MD LAB BLOOD ORDERABLES Final Result Performing Organization Address [facility] de Phone Number [facility] [address] * (ABNORMAL) Blood gas, arterial (04/23/2025 4:26 AM EDT) O2 Sat, Arterial 98 04/23/2025 4:38 AM EDT [facility] FIO2 60 04/23/2025 4:39 AM EDT [facility] pH, Arterial 7.14(LL) 7.35 - 7.45 04/23/2025 4:38 AM EDT [facility] Comment:Critical value was p reviously called. pCO2, Arterial 61(H) 35 - 45 mm Hg 04/23/2025 4:38 AM EDT [facility] pO2, Arterial 122(H) 80 - 100 mm Hg 04/23/2025 4:38 AM EDT [facility] HCO3, Arterial 19(L) 22 - 26 mmol/L 04/23/2025 4:38 AM EDT [facility] CO2 Content,Arteria l 23 23 - 27 mmol/L 04/23/2025 4:38 AM EDT [facility] Base Excess, Arterial -8.3(L) -2.0 - 3.0 mmol/L 04/23/2025 4:38 AM EDT [facility] %HBO2, Arterial 96.2 95.0 - 98.0 % 04/23/2025 4:38 AM EDT [facility] Carboxyhemoglob in, Arterial 1.3 % 04/23/2025 4:38 AM EDT [facility] Comment: CARBOXYHEMOGLOBIN (CO) REFERENCE RANGES: Non-Smokers: <2 % Smokers: <8 % TOXIC: >20 % Methemoglobin, Arterial 0.8 0.0 - 1.5 % 04/23/2025 4:38 AM EDT [facility] Blood, Arterial 04/23/2025 4 :26 AM EDT 04/23/2025 4:32 AM EDT Sergey Altman MD LAB BLOOD ORDERABLES Final Result Performing Organization Address [facility] Co de Phone Number [facility] [address] [facility]. [address] * (ABNORMAL) Protime-INR, AM (04/23/2025 4:26 AM EDT) Protime 18.1(H) 12.1 - 15.1 seconds 04/23/2025 4:57 AM EDT [facility] INR 1.4(H) 0.9 - 1.1 04/23/2025 4:57 AM EDT [facility] Comment: RECOMMENDED THERAPEUTIC RANGES USING INR : Stable oral anticoagulant therapy: 2.0 - 3.0 Mechanical prosthetic heart valve: 2.5 - 3.5 Recurrent acute myocardial infarction: 2.5 - 3.5 Plasma 04/23/2025 4:26 AM EDT 04/23/2025 4:35 AM EDT Sergey Altman MD LAB BLOOD ORDERABLES Final Result [facility] [address] [facility]. [address] * INTUBATION (04/23/2025 3:44 AM EDT) Narrative Manuela Lang MD - 04/23/2025 3:44 AM EDT Manuela Lang MD 04/23/2025 4:44 AM Intubation Date/Time: 04/23/2025 3:44 AM Performed by: Drea Campbell MD Authorized by: Manuela Lang MD Consent: Consent obtained: Emergent situation Alternatives discussed: No treatment and delayed treatment [place] protocol: Patient identity confirmed: Hospital-assigned identification number and arm band Pre-procedure details: Indications: airway protection, respiratory distress and respiratory failure Patient status: Unresponsive Look externally: no concerns Mouth opening - incisor distance: 2 finger widths Hyoid-mental distance: 2 finger widths Hyoid-thyroid distance: 1 finger width Mallampati score: II Obstruction: none Neck mobility: normal Pharmacologic strategy: RSI Induction agents: Etomidate Paralytics: Succinylcholine Procedure details: Preoxygenation: Supraglottic device CPR in progress: no Number of attempts: 1 Successful intubation attempt details: Intubation method: Oral Intubation technique: video assisted Laryngoscope blade: Hypercurved 4/D-Blade Bougie used: no Grade view: I Tube size (mm): 7.5 Tube type: Cuffed Placement assessment: ETT at teeth/gumline (cm): 23 Tube secured with: ETT ye Breath sounds: Equal Placement verification: CXR verification CXR findings: Appropriate position Post-procedure details: Procedure completion: Tolerated well, no immediate complications us Manuela Lang MD PROCEDURE/MINOR SURGICAL ORDERAB LES Final Result * X-ray Portable Chest (04/23/2025 3:13 AM EDT) Anatomical Region Laterality Modality Chest Radiographic Radha ging 04/23/2025 2:59 AM EDT Impressions 04/23/2025 4:18 AM EDT IMPRESSION: No acute cardiopulmonary abnormality. Report Verified by: Vipul Gannon MD at 04/23/2025 4:18 AM EDT Narrative 04/23/2025 4:18 AM EDT EXAM: XR PORTABLE CHEST INDICATION: ET Tube placement TECHNIQUE: 1 view of the chest. COMPARISON: April 19, 2025 FINDINGS: Medical Devices: * Endotracheal tube projects over the trachea with the tip approximately 5 cm above the tata. * NG tube is seen crossing midline diaphragm, distal tip is not visualized. * External pacer/defibrillator pads. * Surgical drain projects over the right upper abdomen. * Tip of the right approximate approach PICC line projects over the SVC. Heart and Mediastinum: Cardiomediastinal silhouette is within normal limits. Lungs and Pleura: Mild basilar atelectasis. Lungs are otherwise clear. No pleural effusions or pneumothorax. Bones and soft tissues: No acute abnormalities. Procedure Note Lorne Gannon MD - 04/23/2025 EXAM: XR PORTABLE CHEST INDICATION: ET Tube placement TECHNIQUE: 1 view of the chest. COMPARISON: April 19, 2025 FINDINGS: Medical Devices: * Endotracheal tube projects over the trachea with the tip approximately5 cm above the tata. * NG tube is seen crossing midline diaphragm, distal tip is notvisualized. * External pacer/defibrillator pads. * Surgical drain projects over the right upper abdomen. * Tip of the right approximate approach PICC line projects over theSVC. Heart and Mediastinum: Cardiomediastinal silhouette is within normallimits. Lungs and Pleura: Mild basilar atelectasis. Lungs are otherwise clear. Nopleural effusions or pneumothorax. Bones and soft tissues: No acute abnormalities. IMPRESSION: No acute cardiopulmonary abnormality. Report Verified by: Vipul Gannon MD at 04/23/2025 4:18 AM EDT Candido Roach MD IMG DIAGNOSTIC IMAGING ORDERA BLES Final Result * (ABNORMAL) Free Calcium, Whole Blood (04/23/2025 2:54 AM EDT) Free Calcium, WB 4.20(L) 4.50 - 5.30 mg/dL 04/23/2025 3:03 AM EDT [facility] Blood, Arterial 04/23/2025 2 :54 AM EDT 04/23/2025 2:57 AM EDT Ludin Jose MD LAB BLOOD ORDERABLES Final Resul t [facility] [address] [place] [address], [facility] * (ABNORMAL) Arterial Blood Gas Panel (04/23/2025 2:54 AM EDT) O2Sat (ABGP) 100 04/23/2025 3:18 AM EDT [facility] FIO2 (ABGP) 100 04/23/2025 3:18 AM EDT [facility] pH (ABGP) 7.05(LL) 7.35 - 7.45 04/23/2025 3:18 AM EDT [facility] Comment: The critical result was called to, and read back by, licensed caregiver konstantin pineda PCO2 (ABGP) 69(H) 35 - 45 mm Hg 04/23/2025 3:18 AM EDT [facility] PO2 (ABGP) 235(H) 80 - 100 mm Hg 04/23/2025 3:18 AM EDT [facility] HCO3 (ABGP) 16(L) 22 - 26 mmol/L 04/23/2025 3:18 AM EDT [facility] CO2 Content (ABGP) 21(L) 23 - 27 mmol/L 04/23/2025 3:18 AM EDT [facility] Base Excess (ABGP) -11.2(L) -2.0 - 3.0 mmol/L 04/23/2025 3:18 AM EDT [facility] Sodium (ABGP) 130(L) 136 - 146 mEq/L 04/23/2025 3:18 AM EDT [facility] Potassium (ABGP) 5.4(H) 3.5 - 5.0 mEq/L 04/23/2025 3:18 AM EDT [facility] Comment: In the event of in-vitro hemolysis, potassium results may be falsely elevated. Always interpret lab results in conjunction with clinical findings. If hemolysis is suspected, a serum sample may be collected for repeat assessment of potassium. In the event of in-vitro hemolysis, potassium results may be falsely elevated. Always interpret lab results in conjunction with clinical findings. If hemolysis is suspected, a serum sample may be collected for repeat assessment of potassium. In the event of in-vitro hemolysis, potassium results may be falsely elevated. Always interpret lab results in conjunction with clinical findings. If hemolysis is suspected, a serum sample may be collected for repeat assessment of potassium. Calcium, Free (ABGP) 4.12(L) 4.50 - 5.30 mg/dL 04/23/2025 3:18 AM EDT [facility] Glucose (ABGP) 165(H) 70 - 100 mg/dL 04/23/2025 3:18 AM EDT [facility] Comment:There is interferenc e with whole blood glucose results on this method when Hematocrit is <25% or >60%. HCT (ABGP) 26.0(L) 35.0 - 45.0 % 04/23/2025 3:18 AM EDT [facility] HGB (ABGP) 8.8(L) 12.0 - 16.0 g/dL 04/23/2025 3:18 AM EDT [facility] %HBO2 (ABGP) 98.4(H) 95.0 - 98.0 % 04/23/2025 3:18 AM EDT [facility] Carboxyhgb (ABGP) 1.6 % 025 3:18 AM EDT [facility] Comment: CARBOXYHEMOGLOBIN (CO) REFERENCE RANGES: Non-Smokers: <2 % Smokers: <8 % TOXIC: >20 % Methemoglobin (ABGP) 0.0 0.0 - 1.5 % 04/23/2025 3:18 AM EDT [facility] Lactic Acid (ABGP) 5.5(H) 0.5 - 1.6 mmol/L 04/23/2025 3:18 AM EDT [facility] Blood, Arterial 04/23/2025 2 :54 AM EDT 04/23/2025 2:57 AM EDT Narrative [facility] - 04/23/2025 3:18 AM EDT Specimen is beyond 15 minutes from time of collection. Results may be compromised. Review results critically. Specimen is beyond 15 minutes from time of collection. Results may be compromised. Review results critically. us Ludin Jose MD LAB BLOOD ORDERABLES Final Resul t [facility] [address] [facility] [place] [address], [facility] * (ABNORMAL) Calcium Free, Serum (04/23/2025 2:23 AM EDT) Free Calcium, Ser 3.80(L) 4.40 - 5.40 mg/dL 04/23/2025 3:13 AM EDT [facility] Comment:Free calcium levels vary inversely with pH by approximately 5% for each 0.1 unit of pH change. Assay results have been normalized to pH = 7.40. Serum 04/23/2025 2:23 AM EDT 04/23/2025 2:35 AM EDT Narrative [facility] - 04/23/2025 3:13 AM EDT This test has been developed and its performance characteristics determined by [facility] which is certified under the Clinical Laboratory Improvement Amendment of 1988 (CLIA-88) to perform high complexity testing. The test has not been cleared or approved by the US Food and Drug Administration (FDA). The FDA has determined that such clearance is not necessary. The test should be used for clinical purposes and is not regarded as investigational. Sergey Altman MD LAB BLOOD ORDERABLES Final Result [facility] [facility] [address] [place], [place] [address] * (ABNORMAL) TEG-Bypass/ECMO/Liver HN (Factor function, Platelet/Fibrin Clot Strength w/Clot Breakdown, Heparinase In All Channels) (04/23/2025 2:23 AM EDT) [facility] Citrated Kaolin Reaction Time (TEGECMOLIVER) 6.3 4.6 - 9.1 minutes 04/23/2025 3:50 AM EDT [facility] Citrated Kaolin W/Heparinase Reaction Time (TEGECMOLIVER) 5.1 4.3 - 8.3 minutes 04/23/2025 3:50 AM EDT [facility] Citrated Kaolin Maximum Amplitude (TEGECMOLIVER) 40.3(L) 52.0 - 69.0 mm 04/23/2025 3:50 AM EDT [facility] Citrated Functional Fibrinogen W/Heparinase Maximum Amplitude(TEGEC MOLIVER) <6.0(L) 15.0 - 34.0 mm 04/23/2025 3:50 AM EDT [facility] Citrated Rapid Teg W/Heparinase Maximum Amplitude (TEGECMOLIVER) 36.1(L) 53.0 - 69.0 mm 04/23/2025 3:50 AM EDT [facility] Citrated Kaolin w/Heparinase Percent Lysis (TEGECMOLIVER) 0.0 0.0 - 3.2 % 04/23/2025 3:50 AM EDT [facility] Whole Blood (Citrate) 04/23/2025 2:23 AM EDT 04/23/2025 2:35 AM EDT Sergey Altman MD LAB BLOOD ORDERABLES Final Result Performing Organization Address [facility]/ZIP Co de Phone Number [facility] [address] [facility]. [address] * Lactic Acid, STAT (04/23/2025 2:23 AM EDT) Lactate 1.9 0.5 - 2.2 mmol/L 04/23/2025 3:08 AM EDT [facility] Plasma 04/23/2025 2:23 AM EDT 04/23/2025 2:35 AM EDT Sergey Altman MD LAB BLOOD ORDERABLES Final Result Performing Organization Address [facility] Co de Phone Number [facility] [address] * (ABNORMAL) Renal Function Panel w/EGFR (04/23/2025 2:23 AM EDT) Sodium 134 133 - 146 mmol/L 04/23/2025 3:20 AM EDT [facility] Potassium 4.6 3.5 - 5.3 mmol/L 04/23/2025 3:20 AM EDT [facility] Chloride 107 98 - 110 mmol/L 04/23/2025 3:20 AM EDT [facility] CO2 22 21 - 33 mmol/L 04/23/2025 3:20 AM EDT [facility] Comment:High lactate dehydro genase concentrations in patient samples may cause falsely increased bicarbonate results. If markedly elevated LDH is observed or suspected, please assess results in conjunction with patient`s clinical presentation. In cases of discrepant results, consider evaluating CO2 in with a blood gas order. Anion Gap 5 3 - 16 mmol/L 04/23/2025 3:20 AM EDT [facility] BUN 39(H) 7 - 25 mg/dL 04/23/2025 3:20 AM EDT [facility] Creatinine 1.28 0.60 - 1.30 mg/dL 04/23/2025 3:20 AM EDT [facility] Glucose 140(H) 70 - 100 mg/dL 04/23/2025 3:20 AM EDT [facility] Calcium 6.3(LL) 8.6 - 10.3 mg/dL 04/23/2025 3:20 AM EDT [facility] Comment:Critical Result S_CA .3 Called to and read back by: ROBERT LANDRY RN at: 04/23/2025 03:20:32 by:[email or web address] Phosphorus 5.0(H) 2.1 - 4.7 mg/dL 04/23/2025 3:20 AM EDT [facility] Albumin 2.0(L) 3.5 - 5.7 g/dL 04/23/2025 3:20 AM EDT [facility] Osmolality, Calculated 290 278 - 305 mOsm/kg 04/23/2025 3:20 AM EDT [facility] EGFR 56 04/23/2025 3:[address] [facility] Comment:As of 2021, the estimated [...] Disease. Am J Kidney Dis. 2020. Plasma 04/23/2025 2:23 AM EDT 04/23/2025 2:35 AM EDT us Giovanny Louis MD LAB BLOOD ORDERABLES Final Res ult [facility] [address] [facility]. [address] * Magnesium (04/23/2025 2:23 AM EDT) Magnesium 1.9 1.5 - 2.5 mg/dL 04/23/2025 3:20 AM EDT [facility] Plasma 04/23/2025 2:23 AM EDT 04/23/2025 2:35 AM EDT us Giovanny Louis MD LAB BLOOD ORDERABLES Final Res ult Performing Organization Address [facility] Co de Phone Number [facility] [address] [facility]. [address] * (ABNORMAL) Hepatic Function Panel (04/23/2025 2:23 AM EDT) Total Bilirubin 1.3 0.0 - 1.5 mg/dL 04/23/2025 3:20 AM EDT [facility] Bilirubin, Direct 0.80(H) 0.00 - 0.40 mg/dL 04/23/2025 3:20 AM EDT [facility] AST 63(H) 13 - 39 U/L 04/23/2025 3:20 AM EDT [facility] ALT 89(H) 7 - 52 U/L 04/23/2025 3:20 AM EDT [facility] Alkaline Phosphatase 63 36 - 125 U/L 04/23/2025 3:20 AM EDT [facility] Total Protein <3.0(L) 6.4 - 8.9 g/dL 04/23/2025 3:20 AM EDT [facility] Albumin 2.0(L) 3.5 - 5.7 g/dL 04/23/2025 3:20 AM EDT [facility] Bilirubin, Indirect 0.50 0.00 - 1.10 mg/dL 04/23/2025 3:20 AM EDT [facility] Plasma 04/23/2025 2:23 AM EDT 04/23/2025 2:35 AM EDT us Gloria Chen MD LAB BLOOD ORDERABLES Final Resul t [facility] [address] [place] [id number], [facility] * (ABNORMAL) CBC (04/23/2025 2:23 AM EDT) WBC 7.7 3.8 - 10.8 10E3/uL 04/23/2025 2:56 AM EDT [facility] RBC 2.86(L) 3.80 - 5.10 10E6/uL 04/23/2025 2:56 AM EDT [facility] Hemoglobin 8.6(L) 11.7 - 15.5 g/dL 04/23/2025 2:56 AM EDT [facility] Hematocrit 24.9(L) 35.0 - 45.0 % 04/23/2025 2:56 AM EDT [facility] MCV 87.3 80.0 - 100.0 fL 04/23/2025 2:56 AM EDT [facility] MCH 30.1 27.0 - 33.0 pg 04/23/2025 2:56 AM EDT [facility] MCHC 34.5 32.0 - 36.0 g/dL 04/23/2025 2:56 AM EDT [facility] RDW 14.6 11.0 - 15.0 % 04/23/2025 2:56 AM EDT [facility] Platelets 60(L) 140 - 400 10E3/uL 04/23/2025 2:56 AM EDT [facility] MPV 10.2 7.5 - 11.5 fL 04/23/2025 2:56 AM EDT [facility] Whole Blood 04/23/2025 2:23 AM EDT 04/23/2025 2:35 AM EDT us Giovanny Louis MD LAB BLOOD ORDERABLES Final Res ult [facility] [address] * (ABNORMAL) POC Glucose Monitoring Device (04/23/2025 12:26 AM EDT) [facility] POC Glucose Monitoring Device 241(H) 70 - 100 mg/dL 04/23/2025 12:27 AM EDT [facility] Blood 04/23/2025 12:2 6 AM EDT 04/23/2025 12:27 AM EDT Ludin Jose MD POINT OF CARE TEST ORDERABLES nal Result [facility] [address] * (ABNORMAL) CBC, STAT (04/23/2025 12:03 AM EDT) [facility] WBC 7.0 3.8 - 10.8 10E3/uL 04/23/2025 1:08 AM EDT [facility] RBC 1.79(L) 3.80 - 5.10 10E6/uL 04/23/2025 1:08 AM EDT [facility] Hemoglobin 5.5(LL) 11.7 - 15.5 g/dL 04/23/2025 1:08 AM EDT [facility] Comment: Results verified by repeat analysis. Critical Result HGB:5.5 Called to and read back by: MARILEE RAMSEY RN at: 04/23/2025 01:08:31 by:LITA Hematocrit 16.1(L) 35.0 - 45.0 % 04/23/2025 1:08 AM EDT [facility] MCV 90.0 80.0 - 100.0 fL 04/23/2025 1:08 AM EDT [facility] MCH 30.7 27.0 - 33.0 pg 04/23/2025 1:08 AM EDT [facility] MCHC 34.1 32.0 - 36.0 g/dL 04/23/2025 1:08 AM EDT [facility] RDW 16.2(H) 11.0 - 15.0 % 04/23/2025 1:08 AM EDT [facility] Platelets 85(L) 140 - 400 10E3/uL 04/23/2025 1:08 AM EDT [facility] MPV 10.1 7.5 - 11.5 fL 04/23/2025 1:08 AM EDT [facility] Whole Blood 04/23/2025 12:0 3 AM EDT 04/23/2025 12:10 AM EDT Sergey Altman MD LAB BLOOD ORDERABLES Final Result [facility] [address] * Antibody Screen (04/23/2025 12:03 AM EDT) Antibody Screen Negative 04/23/2025 12:59 AM EDT [facility] Blood 04/23/2025 12:0 3 AM EDT 04/23/2025 12:11 AM EDT Narrative [facility] - 04/23/2025 1:06 AM EDT Testing performed by [facility] Transfusion Service Sergey Altman MD BLOOD BANK TEST ORDE RABLES Final Result [facility] [address] [facility]. [address] * ABO/Rh (04/23/2025 12:03 AM EDT) ABO Grouping O 04/23/2025 12:53 AM EDT [facility] Rh Type Positive 04/23/2025 12:53 AM EDT [facility] Blood 04/23/2025 12:0 3 AM EDT 04/23/2025 12:11 AM EDT Sergey Altman MD BLOOD BANK TEST ORDE RABLES Final Result [facility] [address] [facility]. [address] * (ABNORMAL) Lactic Acid, STAT (04/22/2025 11:04 PM EDT) Lactate 2.7(H) 0.5 - 2.2 mmol/L 04/23/2025 12:17 AM EDT [facility] Plasma 04/22/2025 11:0 4 PM EDT 04/22/2025 11:12 PM EDT Sergey Altman MD LAB BLOOD ORDERABLES Final Result Performing Organization Address [facility]/ZIP Co de Phone Number [facility] [address] [facility]. [address] * Magnesium, STAT (04/22/2025 11:04 PM EDT) Magnesium 2.0 1.5 - 2.5 mg/dL 04/23/2025 12:20 AM EDT [facility] Plasma 04/22/2025 11:0 4 PM EDT 04/22/2025 11:12 PM EDT Sergey Altman MD LAB BLOOD ORDERABLES Final Result Performing Organization Address City/[facility] Co de Phone Number [facility] [address] [facility]. [address] * (ABNORMAL) Renal Function Panel w/EGFR, STAT (04/22/2025 11:04 PM EDT) Sodium 133 133 - 146 mmol/L 04/23/2025 12:20 AM EDT [facility] Potassium 4.8 3.5 - 5.3 mmol/L 04/23/2025 12:20 AM EDT [facility] Chloride 106 98 - 110 mmol/L 04/23/2025 12:20 AM EDT [facility] CO2 23 21 - 33 mmol/L 04/23/2025 12:20 AM EDT [facility] Comment:High lactate dehydro genase concentrations in patient samples may cause falsely increased bicarbonate results. If markedly elevated LDH is observed or suspected, please assess results in conjunction with patient`s clinical presentation. In cases of discrepant results, consider evaluating CO2 in with a blood gas order. Anion Gap 4 3 - 16 mmol/L 04/23/2025 12:20 AM EDT [facility] BUN 40(H) 7 - 25 mg/dL 04/23/2025 12:20 AM EDT [facility] Creatinine 1.34(H) 0.60 - 1.30 mg/dL 04/23/2025 12:20 AM EDT [facility] Glucose 279(H) 70 - 100 mg/dL 04/23/2025 12:20 AM EDT [facility] Calcium 6.8(L) 8.6 - 10.3 mg/dL 04/23/2025 12:20 AM EDT [facility] Phosphorus 4.4 2.1 - 4.7 mg/dL 04/23/2025 12:20 AM EDT [facility] Albumin 2.5(L) 3.5 - 5.7 g/dL 04/23/2025 12:20 AM EDT [facility] Osmolality, Calculated 296 278 - 305 mOsm/kg 04/23/2025 12:20 AM EDT [facility] EGFR 53 04/23/2025 12:20 AM EDT [facility] Comment:As of 2021, the estimated GFR [...] Disease. Am J Kidney Dis. 2020. Plasma 04/22/2025 11:0 4 PM EDT 04/22/2025 11:12 PM EDT Sergey Altman MD LAB BLOOD ORDERABLES Final Result [facility] [address] * (ABNORMAL) CBC, STAT (04/22/2025 11:04 PM EDT) [facility] WBC 6.8 3.8 - 10.8 10E3/uL 04/22/2025 11:41 PM EDT [facility] RBC 2.02(L) 3.80 - 5.10 10E6/uL 04/22/2025 11:41 PM EDT [facility] Hemoglobin 6.1(L) 11.7 - 15.5 g/dL 04/22/2025 11:41 PM EDT [facility] Hematocrit 18.0(L) 35.0 - 45.0 % 04/22/2025 11:41 PM EDT [facility] MCV 89.1 80.0 - 100.0 fL 04/22/2025 11:41 PM EDT [facility] MCH 30.2 27.0 - 33.0 pg 04/22/2025 11:41 PM EDT [facility] MCHC 33.9 32.0 - 36.0 g/dL 04/22/2025 11:41 PM EDT [facility] RDW 16.5(H) 11.0 - 15.0 % 04/22/2025 11:41 PM EDT [facility] Platelets 88(L) 140 - 400 10E3/uL 04/22/2025 11:41 PM EDT [facility] Comment:Specimen checked for clots. None detected. MPV 10.0 7.5 - 11.5 fL 04/22/2025 11:41 PM EDT [facility] Whole Blood 04/22/2025 11:0 4 PM EDT 04/22/2025 11:12 PM EDT us Sergey Altman MD LAB BLOOD ORDERABLES Final Result [facility] [address] * (ABNORMAL) POC Glucose Monitoring Device (04/22/2025 9:12 PM EDT) [facility] POC Glucose Monitoring Device 266(H) 70 - 100 mg/dL 04/22/2025 9:13 PM EDT [facility] Blood 04/22/2025 9:12 PM EDT 04/22/2025 9:13 PM EDT us Ludin Jose MD POINT OF CARE TEST ORDERABLES Fi nal Result Performing Organization Address City/[facility]/ZIP Co de Phone Number [facility] [address] [place] [address] * (ABNORMAL) POC Glucose Monitoring Device (04/22/2025 4:33 PM EDT) POC Glucose Monitoring Device 171(H) 70 - 100 mg/dL 04/22/2025 4:34 PM EDT [facility] Blood 04/22/2025 4:33 PM EDT 04/22/2025 4:33 PM EDT us Ludin Jose MD POINT OF CARE TEST ORDERABLES Fi nal Result Performing Organization Address [facility] Co de Phone Number [facility] [address] * (ABNORMAL) POC Glucose Monitoring Device (04/22/2025 12:05 PM EDT) POC Glucose Monitoring Device 114(H) 70 - 100 mg/dL 04/22/2025 12:06 PM EDT [facility] Blood 04/22/2025 12:0 5 PM EDT 04/22/2025 12:05 PM EDT us Ludin Jose MD POINT OF CARE TEST ORDERABLES Fi nal Result Performing Organization Address City/[facility] Co de Phone Number [facility] [address] * (ABNORMAL) Tacrolimus level (04/22/2025 6:06 AM EDT) Tacrolimus (LC-MS) 15.6(H) 3.0 - 15.0 ng/mL 04/22/2025 10:47 AM EDT [facility] Comment:Performed via liquid chromatography tandem mass spectrometry. Detection limit: 1 ng/mL. Individual target concentrations may vary due to target organ and time after transplant. This test has been developed and its performance characteristics determined by [facility] which is certified under the Clinical Laboratory Improvement Amendment of 1988 (CLIA-88) to perform high complexity testing. The test has not been cleared or approved by the US Food and Drug Administration (FDA). The FDA has determined that such clearance is not necessary. The test should be used for clinical purposes and is not regarded as investigational. Whole Blood 04/22/2025 6:06 AM EDT 04/22/2025 6:43 AM EDT us Gloria Chen MD LAB BLOOD ORDERABLES Final Resul t [facility] [address] [place] [address], [facility] * (ABNORMAL) Renal Function Panel w/EGFR (04/22/2025 6:06 AM EDT) Sodium 137 133 - 146 mmol/L 04/22/2025 7:51 AM EDT [facility] Potassium 4.2 3.5 - 5.3 mmol/L 04/22/2025 7:51 AM EDT [facility] Chloride 108 98 - 110 mmol/L 04/22/2025 7:51 AM EDT [facility] CO2 22 21 - 33 mmol/L 04/22/2025 7:51 AM EDT [facility] Comment:High lactate dehydro genase concentrations in patient samples may cause falsely increased bicarbonate results. If markedly elevated LDH is observed or suspected, please assess results in conjunction with patient`s clinical presentation. In cases of discrepant results, consider evaluating CO2 in with a blood gas order. Anion Gap 7 3 - 16 mmol/L 04/22/2025 7:51 AM EDT [facility] BUN 43(H) 7 - 25 mg/dL 04/22/2025 7:51 AM EDT [facility] Creatinine 1.14 0.60 - 1.30 mg/dL 04/22/2025 7:51 AM EDT [facility] Glucose 80 70 - 100 mg/dL 04/22/2025 7:51 AM EDT [facility] Calcium 7.7(L) 8.6 - 10.3 mg/dL 04/22/2025 7:51 AM EDT [facility] Phosphorus 2.7 2.1 - 4.7 mg/dL 04/22/2025 7:51 AM EDT [facility] Albumin 3.1(L) 3.5 - 5.7 g/dL 04/22/2025 7:51 AM EDT [facility] Osmolality, Calculated 294 278 - 305 mOsm/kg 04/22/2025 7:51 AM EDT [facility] EGFR 64 04/22/2025 7:51 AM EDT [facility] Comment:As of 2021, the estimated GFR [...] be reported as >90mL/min/1.73m2. Reference: Usama C, Hernnadez M, Chato [place], Suzy [place], Jyoti [place], Nas [place], et al. A Unifying Approach for GFR Estimation: Recommendations of the NKF-ASN Task Force on Reassessing the inclusion of Race in Diagnosing Kidney Disease. Am J Kidney Dis. 2020. Plasma 04/22/2025 6:06 AM EDT 04/22/2025 6:43 AM EDT us Giovanny Louis MD LAB BLOOD ORDERABLES Final Res ult [facility] [address] * (ABNORMAL) Magnesium (04/22/2025 6:06 AM EDT) Magnesium 2.7(H) 1.5 - 2.5 mg/dL 04/22/2025 7:51 AM EDT [facility] Plasma 04/22/2025 6:06 AM EDT 04/22/2025 6:43 AM EDT Giovanny Louis MD LAB BLOOD ORDERABLES Final Res ult Performing Organization Address [facility] Co de Phone Number [facility] [address] * (ABNORMAL) Hepatic Function Panel (04/22/2025 6:06 AM EDT) Total Bilirubin 1.9(H) 0.0 - 1.5 mg/dL 04/22/2025 7:51 AM EDT [facility] Bilirubin, Direct 1.11(H) 0.00 - 0.40 mg/dL 04/22/2025 7:51 AM EDT [facility] AST 116(H) 13 - 39 U/L 04/22/2025 7:51 AM EDT [facility] ALT 144(H) 7 - 52 U/L 04/22/2025 7:51 AM EDT [facility] Alkaline Phosphatase 83 36 - 125 U/L 04/22/2025 7:51 AM EDT [facility] Total Protein 4.5(L) 6.4 - 8.9 g/dL 04/22/2025 7:51 AM EDT [facility] Albumin 3.1(L) 3.5 - 5.7 g/dL 04/22/2025 7:51 AM EDT [facility] Bilirubin, Indirect 0.79 0.00 - 1.10 mg/dL 04/22/2025 7:51 AM EDT [facility] Plasma 04/22/2025 6:06 AM EDT 04/22/2025 6:43 AM EDT us Gloria Chen MD LAB BLOOD ORDERABLES Final Resul t [facility] [address] [facility]. [address] * (ABNORMAL) CBC (04/22/2025 6:06 AM EDT) WBC 4.1 3.8 - 10.8 10E3/uL 04/22/2025 8:39 AM EDT [facility] RBC 3.13(L) 3.80 - 5.10 10E6/uL 04/22/2025 8:39 AM EDT [facility] Hemoglobin 9.6(L) 11.7 - 15.5 g/dL 04/22/2025 8:39 AM EDT [facility] Hematocrit 27.7(L) 35.0 - 45.0 % 04/22/2025 8:39 AM EDT [facility] MCV 88.5 80.0 - 100.0 fL 04/22/2025 8:39 AM EDT [facility] MCH 30.8 27.0 - 33.0 pg 04/22/2025 8:39 AM EDT [facility] MCHC 34.8 32.0 - 36.0 g/dL 04/22/2025 8:39 AM EDT [facility] RDW 16.3(H) 11.0 - 15.0 % 04/22/2025 8:39 AM EDT [facility] Platelets 48(L) 140 - 400 10E3/uL 04/22/2025 8:39 AM EDT [facility] Comment: CNV Specimen checked for clots. None detected. MPV 9.7 7.5 - 11.5 fL 04/22/2025 8:39 AM EDT [facility] Whole Blood 04/22/2025 6:06 AM EDT 04/22/2025 6:43 AM EDT us Giovanny Louis MD LAB BLOOD ORDERABLES Final Res ult [facility] [address] [id number] * POC Glucose Monitoring Device (04/22/2025 5:58 AM EDT) [facility] Signature POC Glucose Monitoring Device 80 70 - 100 mg/dL 04/22/2025 5:58 AM EDT [facility] Blood 04/22/2025 5:58 AM EDT 04/22/2025 5:58 AM EDT us Ludin Jose MD POINT OF CARE TEST ORDERABLES Fi nal Result Performing Organization Address [facility]/ZIP Co de Phone Number [facility] [address] [facility]. [address] * (ABNORMAL) POC Glucose Monitoring Device (04/21/2025 11:19 PM EDT) POC Glucose Monitoring Device 109(H) 70 - 100 mg/dL 04/21/2025 11:19 PM EDT [facility] Blood 04/21/2025 11:1 9 PM EDT 04/21/2025 11:19 PM EDT us Ludin Jose MD POINT OF CARE TEST ORDERABLES Fi nal Result Performing Organization Address [facility] Co de Phone Number [facility] [address] [facility]. [address] * (ABNORMAL) POC Glucose Monitoring Device (04/21/2025 6:17 PM EDT) POC Glucose Monitoring Device 137(H) 70 - 100 mg/dL 04/21/2025 6:18 PM EDT [facility] Blood 04/21/2025 6:17 PM EDT 04/21/2025 6:18 PM EDT us Ludin Jose MD POINT OF CARE TEST ORDERABLES Fi nal Result Performing Organization Address [facility] Co de Phone Number [facility] [address] [facility]. [address] * VAS Venous Duplex Upper Left (04/21/2025 4:54 PM EDT) Anatomical Region Laterality Modality Vascular Ultrasound 04/22/2025 8:49 AM EDT Narrative 04/22/2025 8:49 AM EDT Right: No evidence for DVT in the contralateral mid subclavian vein. Left: Evidence for acute occluding SVT is seen in the left cephalic vein extending from the antecubital fossa to the mid upper arm measuring 13 cm in length. Evidence for acute occluding SVT is seen in the left basilic vein extending from the antecubital fossa to the proximal upper arm measuring 18 cm in length. There is no other evidence for DVT/SVT in the remaining upper extremity. Limited visualization of the left forearm veins due to edema and dressing at the distal forearm. 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 Procedure: Upper extremity venous imaging was performed using real time B-mode imaging in the longitudinal and the transverse plane with and without compression. Visualization routinely includes the internal jugular vein, subclavian vein, axillary vein, brachial vein, cephalic vein, basilic vein, and selectively the radial and ulnar vein. Color and spectral Doppler were used to document flow characteristics from the IJV, subclavian vein, and axillary vein to evaluate for the presence or absence of spontaneous flow. Augmentation maneuvers were performed as needed to document venous flow response. On unilateral studies, the contralateral subclavian and/or internal jugular veins are routinely examined. Critical Findings: Critical results were called to Jc Terrazas RN, on 04/21/2025 at 5:03 pm. Procedure Note Timur Ruiz MD - 04/22/2025 Right: No evidence for DVT in the contralateral mid subclavian vein. Left: Evidence for acute occluding SVT is seen in the left cephalic veinextending from the antecubital fossa to the mid upper arm measuring 13 cmin length. Evidence for acute occluding SVT is seen in the left basilicvein extending from the antecubital fossa to the proximal upper armmeasuring 18 cm in length. There is no other evidence for DVT/SVT in theremaining upper extremity. Limited visualization of the left forearm veinsdue to edema and dressing at the distal forearm. Conclusions: Acute, occluding SVT left cephalic and basilic veins.No otherevidence of DVT or SVT in the remaining limited left upper extremity. Procedure: Upper extremity venous imaging was performed using real timeB-mode imaging in the longitudinal and the transverse plane with andwithout compression. Visualization routinely includes the internaljugular vein, subclavian vein, axillary vein, brachial vein, cephalicvein, basilic vein, and selectively the radial and ulnar vein. Color andspectral Doppler were used to document flow characteristics from the IJV,subclavian vein, and axillary vein to evaluate for the presence or absenceof spontaneous flow. Augmentation maneuvers were performed as needed todocument venous flow response. On unilateral studies, the contralateralsubclavian and/or internal jugular veins are routinely examined. Critical Findings: Critical results were called to Jc Terrazas RN, on04/21/2025 at 5:03 pm. Marah Hull CNP CV VASCULAR ORDERABLES Final Result * (ABNORMAL) POC Glucose Monitoring Device (04/21/2025 12:52 PM EDT) [facility] POC Glucose Monitoring Device 118(H) 70 - 100 mg/dL 04/21/2025 12:52 PM EDT [facility] Blood 04/21/2025 12:5 2 PM EDT 04/21/2025 12:52 PM EDT Ludin Jose MD POINT OF CARE TEST ORDERABLES Fi nal Result Performing Organization Address City/[facility]/ZIP Co de Phone Number [facility] [address] [place] [address]. [address] * Osmolality, urine (04/21/2025 12:31 PM EDT) Pathologist [facility] Osmolality, Ur 518 50 - 1,200 mOsm/kg 04/21/2025 2:35 PM EDT [facility] Urine 04/21/2025 12:3 1 PM EDT 04/21/2025 12:50 PM EDT Marah Hull CNP URINE ORDERABLES Final Result [facility] [address] [place] [address]. [address] * Creatinine, urine, random (04/21/2025 12:31 PM EDT) Pathologist [facility] Creatinine, Urine 45.10 mg/dL 04/21/2025 1:50 PM EDT [facility] Comment:Reference range not established for this test. Urine 04/21/2025 12:3 1 PM EDT 04/21/2025 12:50 PM EDT us Mraah Hull CNP URINE ORDERABLES Final Result Performing Organization Address [facility] Co de Phone Number [facility] [address] * Protein, Total urine, random (04/21/2025 12:31 PM EDT) Total Protein, Ur 29 mg/dL 04/21/2025 1:50 PM EDT [facility] Comment:Reference range not established for this test. Urine 04/21/2025 12:3 1 PM EDT 04/21/2025 12:50 PM EDT Marah Hull CNP URINE ORDERABLES Final Result Performing Organization Address [facility] Co de Phone Number [facility] [address] * Sodium, urine, random (04/21/2025 12:31 PM EDT) Sodium, Ur 77 mmol/L 04/21/2025 1:50 PM EDT [facility] Comment:Reference range not established for this test. Urine 04/21/2025 12:3 1 PM EDT 04/21/2025 12:50 PM EDT us Marah Hull CNP URINE ORDERABLES Final Result Performing Organization Address [facility] Co de Phone Number [facility] [address] * US Abdomen Limited (04/21/2025 9:47 AM EDT) Anatomical Region Laterality Modality Abdomen, Pelvis Ultrasound 04/21/2025 8:22 AM EDT Impressions 04/21/2025 6:27 PM EDT IMPRESSION: RIGHT UPPER QUADRANT Normal sonographic appearance of the right lobe liver transplant. LIVER DOPPLER Patent hepatic vasculature with antegrade flow and normal arterial waveforms.. Approved by Rosalee Jacinto MD on 04/21/2025 11:16 AM EDT I have personally reviewed the images and I agree with this report. Report Verified by: Veronique Dick MD at 04/21/2025 6:27 PM EDT Narrative 04/21/2025 6:27 PM EDT EXAM: US ABDOMEN LIMITED EXAM: US DUPLEX [id number] COMPLETE INDICATION: Post-op liver transplant DATE: 04/21/2025 8:22 AM EDT COMPARISON: 04/19/2025 TECHNIQUE: Grayscale imaging was performed with attention to the right upper quadrant; color and spectral (duplex) Doppler analysis of the hepatic vasculature was also performed. FINDINGS: Liver: Normal grayscale appearance of the right lobe liver allograft. No focal hepatic lesions. Partially visualized perihepatic drain. Biliary/CBD: 4 mm. No intra or extrahepatic ductal dilatation. Gallbladder: Surgically absent.. Pancreas: Obscured by overlying bowel gas. Right kidney: 11.9 cm in length. Normal parenchymal echogenicity. No hydronephrosis. Other: Trace perihepatic fluid adjacent to surgical drain. DOPPLER: Hepatic Veins: Duplex evaluation of the hepatic vasculature demonstrates normal flow in the right hepatic vein. Venous waveforms are also seen along the cut surface of the liver coursing towards the IVC consistent with the hepatic vein graft. Portal Veins: The right, and main portal vein demonstrate hepatopetal flow. Hepatic Arteries: Right hepatic artery demonstrates normal waveform. Resistive Indices Extrahepatic right hepatic artery: 0.71-0.76 Intrahepatic right hepatic artery: 0.61-0.66 Procedure Note Veronique Dick MD - 04/21/2025 EXAM: US ABDOMEN LIMITED EXAM: US DUPLEX [id number] COMPLETE INDICATION: Post-op liver transplant DATE: 04/21/2025 8:22 AM EDT COMPARISON: 04/19/2025 TECHNIQUE: Grayscale imaging was performed with attention to the rightupper quadrant; color and spectral (duplex) Doppler analysis of thehepatic vasculature was also performed. FINDINGS: Liver: Normal grayscale appearance of the right lobe liver allograft. Nofocal hepatic lesions. Partially visualized perihepatic drain. Biliary/CBD: 4 mm. No intra or extrahepatic ductal dilatation. Gallbladder: Surgically absent.. Pancreas: Obscured by overlying bowel gas. Right kidney: 11.9 cm in length. Normal parenchymal echogenicity. Nohydronephrosis. Other: Trace perihepatic fluid adjacent to surgical drain. DOPPLER: Hepatic Veins: Duplex evaluation of the hepatic vasculature demonstratesnormal flow in the right hepatic vein. Venous waveforms are also seenalong the cut surface of the liver coursing towards the IVC consistentwith the hepatic vein graft. Portal Veins: The right, and main portal vein demonstrate hepatopetalflow. Hepatic Arteries: Right hepatic artery demonstrates normal waveform. Resistive Indices Extrahepatic right hepatic artery: 0.71-0.76 Intrahepatic right hepatic artery: 0.61-0.66 IMPRESSION: RIGHT UPPER QUADRANT Normal sonographic appearance of the right lobe liver transplant. LIVER DOPPLER Patent hepatic vasculature with antegrade flow and normal arterialwaveforms.. Approved by Rosalee Jacinto MD on 04/21/2025 11:16 AM EDT I have personally reviewed the images and I agree with this report. Report Verified by: Veronique Dick MD at 04/21/2025 6:27 PM EDT us Peggynora Hull FORMATION TESTING OPERATOR IMG US ORDERABLES Final Resul t * US Duplex [id number] (04/21/2025 9:47 AM EDT) Anatomical Region Laterality Modality Abdomen, Pelvis, Testes, Vascular Ultrasound 04/21/2025 8:22 AM EDT Impressions 04/21/2025 6:27 PM EDT IMPRESSION: RIGHT UPPER QUADRANT Normal sonographic appearance of the right lobe liver transplant. LIVER DOPPLER Patent hepatic vasculature with antegrade flow and normal arterial waveforms.. Approved by Rosalee Jacinto MD on 04/21/2025 11:16 AM EDT I have personally reviewed the images and I agree with this report. Report Verified by: Veronique Dick MD at 04/21/2025 6:27 PM EDT Narrative 04/21/2025 6:27 PM EDT EXAM: US ABDOMEN LIMITED EXAM: US DUPLEX [id number] COMPLETE INDICATION: Post-op liver transplant DATE: 04/21/2025 8:22 AM EDT COMPARISON: 04/19/2025 TECHNIQUE: Grayscale imaging was performed with attention to the right upper quadrant; color and spectral (duplex) Doppler analysis of the hepatic vasculature was also performed. FINDINGS: Liver: Normal grayscale appearance of the right lobe liver allograft. No focal hepatic lesions. Partially visualized perihepatic drain. Biliary/CBD: 4 mm. No intra or extrahepatic ductal dilatation. Gallbladder: Surgically absent.. Pancreas: Obscured by overlying bowel gas. Right kidney: 11.9 cm in length. Normal parenchymal echogenicity. No hydronephrosis. Other: Trace perihepatic fluid adjacent to surgical drain. DOPPLER: Hepatic Veins: Duplex evaluation of the hepatic vasculature demonstrates normal flow in the right hepatic vein. Venous waveforms are also seen along the cut surface of the liver coursing towards the IVC consistent with the hepatic vein graft. Portal Veins: The right, and main portal vein demonstrate hepatopetal flow. Hepatic Arteries: Right hepatic artery demonstrates normal waveform. Resistive Indices Extrahepatic right hepatic artery: 0.71-0.76 Intrahepatic right hepatic artery: 0.61-0.66 Procedure Note Veronique Dick MD - 04/21/2025 EXAM: US ABDOMEN LIMITED EXAM: US DUPLEX [id number] COMPLETE INDICATION: Post-op liver transplant DATE: 04/21/2025 8:22 AM EDT COMPARISON: 04/19/2025 TECHNIQUE: Grayscale imaging was performed with attention to the rightupper quadrant; color and spectral (duplex) Doppler analysis of thehepatic vasculature was also performed. FINDINGS: Liver: Normal grayscale appearance of the right lobe liver allograft. Nofocal hepatic lesions. Partially visualized perihepatic drain. Biliary/CBD: 4 mm. No intra or extrahepatic ductal dilatation. Gallbladder: Surgically absent.. Pancreas: Obscured by overlying bowel gas. Right kidney: 11.9 cm in length. Normal parenchymal echogenicity. Nohydronephrosis. Other: Trace perihepatic fluid adjacent to surgical drain. DOPPLER: Hepatic Veins: Duplex evaluation of the hepatic vasculature demonstratesnormal flow in the right hepatic vein. Venous waveforms are also seenalong the cut surface of the liver coursing towards the IVC consistentwith the hepatic vein graft. Portal Veins: The right, and main portal vein demonstrate hepatopetalflow. Hepatic Arteries: Right hepatic artery demonstrates normal waveform. Resistive Indices Extrahepatic right hepatic artery: 0.71-0.76 Intrahepatic right hepatic artery: 0.61-0.66 IMPRESSION: RIGHT UPPER QUADRANT Normal sonographic appearance of the right lobe liver transplant. LIVER DOPPLER Patent hepatic vasculature with antegrade flow and normal arterialwaveforms.. Approved by Rosalee Jacinto MD on 04/21/2025 11:16 AM EDT I have personally reviewed the images and I agree with this report. Report Verified by: Veronique Dick MD at 04/21/2025 6:27 PM EDT us Marah Hull FORMATION TESTING OPERATOR IMG US ORDERABLES Final Resul t * (ABNORMAL) Renal Function Panel w/EGFR (04/21/2025 9:00 AM EDT) Sodium 136 133 - 146 mmol/L 04/21/2025 10:11 AM EDT [facility] Potassium 4.1 3.5 - 5.3 mmol/L 04/21/2025 10:11 AM EDT [facility] Chloride 109 98 - 110 mmol/L 04/21/2025 10:11 AM EDT [facility] CO2 21 21 - 33 mmol/L 04/21/2025 10:11 AM EDT [facility] Comment:High lactate dehydro genase concentrations in patient samples may cause falsely increased bicarbonate results. If markedly elevated LDH is observed or suspected, please assess results in conjunction with patient`s clinical presentation. In cases of discrepant results, consider evaluating CO2 in with a blood gas order. Anion Gap 6 3 - 16 mmol/L 04/21/2025 10:11 AM EDT [facility] BUN 64(H) 7 - 25 mg/dL 04/21/2025 10:11 AM EDT [facility] Creatinine 1.40(H) 0.60 - 1.30 mg/dL 04/21/2025 10:11 AM EDT [facility] Glucose 69(L) 70 - 100 mg/dL 04/21/2025 10:11 AM EDT [facility] Calcium 7.4(L) 8.6 - 10.3 mg/dL 04/21/2025 10:11 AM EDT [facility] Phosphorus 3.9 2.1 - 4.7 mg/dL 04/21/2025 10:11 AM EDT [facility] Albumin 3.0(L) 3.5 - 5.7 g/dL 04/21/2025 10:11 AM EDT [facility] Osmolality, Calculated 299 278 - 305 mOsm/kg 04/21/2025 10:11 AM EDT [facility] EGFR 50 04/21/2025 10:11 AM EDT [facility] Comment:As of 2021, the estimated GFR [...] Reference: Usama C, Hernandez M, Chato [place], uSzy [place], Jyoti [place], Nas [place], et al. A Unifying Approach for GFR Estimation: Recommendations of the NKF-ASN Task Force on Reassessing the inclusion of Race in Diagnosing Kidney Disease. Am J Kidney Dis. 2020. Plasma 04/21/2025 9:00 AM EDT 04/21/2025 9:23 AM EDT Giovanny Louis MD LAB BLOOD ORDERABLES Final Res ult Performing Organization Address City/[facility]/ZIP Co de Phone Number [facility] [address] [facility]. [address] * (ABNORMAL) Magnesium (04/21/2025 9:00 AM EDT) Pathologist [facility] Magnesium 2.7(H) 1.5 - 2.5 mg/dL 04/21/2025 10:11 AM EDT [facility] Plasma 04/21/2025 9:00 AM EDT 04/21/2025 9:23 AM EDT Giovanny Louis MD LAB BLOOD ORDERABLES Final Res ult [facility] [address] * (ABNORMAL) Hepatic Function Panel (04/21/2025 9:00 AM EDT) Total Bilirubin 1.6(H) 0.0 - 1.5 mg/dL 04/21/2025 10:11 AM EDT [facility] Bilirubin, Direct 0.91(H) 0.00 - 0.40 mg/dL 04/21/2025 10:11 AM EDT [facility] AST 122(H) 13 - 39 U/L 04/21/2025 10:11 AM EDT [facility] ALT 134(H) 7 - 52 U/L 04/21/2025 10:11 AM EDT [facility] Alkaline Phosphatase 56 36 - 125 U/L 04/21/2025 10:11 AM EDT [facility] Total Protein 4.5(L) 6.4 - 8.9 g/dL 04/21/2025 10:11 AM EDT [facility] Albumin 3.0(L) 3.5 - 5.7 g/dL 04/21/2025 10:11 AM EDT [facility] Bilirubin, Indirect 0.69 0.00 - 1.10 mg/dL 04/21/2025 10:11 AM EDT [facility] Plasma 04/21/2025 9:00 AM EDT 04/21/2025 9:23 AM EDT us Gloria Chen MD LAB BLOOD ORDERABLES Final Resul t [facility] [address] [place] [address], [facility] * (ABNORMAL) CBC (04/21/2025 9:00 AM EDT) WBC 6.0 3.8 - 10.8 10E3/uL 04/21/2025 9:32 AM EDT [facility] RBC 3.17(L) 3.80 - 5.10 10E6/uL 04/21/2025 9:32 AM EDT [facility] Hemoglobin 9.7(L) 11.7 - 15.5 g/dL 04/21/2025 9:32 AM EDT [facility] Hematocrit 28.4(L) 35.0 - 45.0 % 04/21/2025 9:32 AM EDT [facility] MCV 89.5 80.0 - 100.0 fL 04/21/2025 9:32 AM EDT [facility] MCH 30.7 27.0 - 33.0 pg 04/21/2025 9:32 AM EDT [facility] MCHC 34.2 32.0 - 36.0 g/dL 04/21/2025 9:32 AM EDT [facility] RDW 16.6(H) 11.0 - 15.0 % 04/21/2025 9:32 AM EDT [facility] Platelets 49(L) 140 - 400 10E3/uL 04/21/2025 9:32 AM EDT [facility] Comment: CNV Specimen checked for clots. None detected. MPV 9.5 7.5 - 11.5 fL 04/21/2025 9:32 AM EDT [facility] Whole Blood 04/21/2025 9:00 AM EDT 04/21/2025 9:23 AM EDT Giovanny Louis MD LAB BLOOD ORDERABLES Final Res ult [facility] [address] [place] [address], [facility] * Tacrolimus level (04/21/2025 9:00 AM EDT) Tacrolimus (LC-MS) 13.2 3.0 - 15.0 ng/mL 04/21/2025 2:34 PM EDT [facility] Comment:Performed via liquid chromatography tandem mass spectrometry. Detection limit: 1 ng/mL. Individual target concentrations may vary due to target organ and time after transplant. This test has been developed and its performance characteristics determined by [facility] which is certified under the Clinical Laboratory Improvement Amendment of 1988 (CLIA-88) to perform high complexity testing. The test has not been cleared or approved by the US Food and Drug Administration (FDA). The FDA has determined that such clearance is not necessary. The test should be used for clinical purposes and is not regarded as investigational. Whole Blood 04/21/2025 9:00 AM EDT 04/21/2025 9:23 AM EDT Giovanny Louis MD LAB BLOOD ORDERABLES Final Res ult Performing Organization Address [facility] Co de Phone Number [facility] [address] * (ABNORMAL) Protime-INR, STAT (04/21/2025 9:00 AM EDT) Protime 17.8(H) 12.1 - 15.1 seconds 04/21/2025 11:05 AM EDT [facility] INR 1.4(H) 0.9 - 1.1 04/21/2025 11:05 AM EDT [facility] Comment: RECOMMENDED THERAPEUTIC RANGES USING INR : Stable oral anticoagulant therapy: 2.0 - 3.0 Mechanical prosthetic heart valve: 2.5 - 3.5 Recurrent acute myocardial infarction: 2.5 - 3.5 Plasma 04/21/2025 9:00 AM EDT 04/21/2025 9:23 AM EDT Giovanny Louis MD LAB BLOOD ORDERABLES Final Res ult Performing Organization Address [facility] Co de Phone Number [facility] [address] [facility]. [address] * Insert PICC line (04/21/2025 8:37 AM EDT) Chava Quezada RN - 04/21/2025 8:37 AM EDT Chava Mcgraw RN 04/21/2025 8:38 AM Insert PICC line Date/Time: 04/21/2025 8:37 AM Performed by: Chava Mcgraw RN Authorized by: Ludin Jose MD [place] Protocol: Verbal consent obtained?: Yes Written consent obtained?: Yes Risks and benefits: Risks, benefits and alternatives were discussed Consent given by: Patient Patient states understanding of procedure being performed: Yes Patient's understanding of procedure matches consent: Yes Procedure consent matches procedure scheduled: Yes Relevant documents present and verified: Yes Test results available and properly labeled: Yes Site marked: Yes Imaging studies available: Yes Required items: Required blood products, implants, devices and special equipment available Patient identity confirmed: Verbally with patient, arm band and hospital-assigned identification number Time out: Immediately prior to the procedure a time out was called A time out verifies correct patient, procedure, equipment, support assistant and site/side marked as required: Preparation: Preparation: Patient was prepped and draped in usual sterile fashion Site: brachial vein Local anesthesia used?: Yes Anesthesia: Local infiltration Local anesthetic: Lidocaine 1% without epinephrine Anesthetic total (ml): 4 Patient sedated: No Post-procedure: Patient tolerance: Patient tolerated the procedure well with no immediate complications PICC placement completed, patient educated on complications, risks and prevention of infection. Written material given to patient. Guidewire removed post PICC placement: Yes us Ludin Jose MD IV THERAPY ORDERABLES Final Resu lt * POC Glucose Monitoring Device (04/21/2025 4:56 AM EDT) POC Glucose Monitoring Device 74 70 - 100 mg/dL 04/21/2025 4:56 AM EDT [facility] Blood 04/21/2025 4:56 AM EDT 04/21/2025 4:56 AM EDT us Ludin Jose MD POINT OF CARE TEST ORDERABLES Fi nal Result Performing Organization Address [facility]/ZIP Co de Phone Number [facility] [address] [place] [address] * POC Glucose Monitoring Device (04/20/2025 11:27 PM EDT) POC Glucose Monitoring Device 96 70 - 100 mg/dL 04/20/2025 11:30 PM EDT [facility] Blood 04/20/2025 11:2 7 PM EDT 04/20/2025 11:30 PM EDT us Ludin Jose MD POINT OF CARE TEST ORDERABLES Fi nal Result Performing Organization Address [facility] Co de Phone Number [facility] [address] * (ABNORMAL) POC Glucose Monitoring Device (04/20/2025 6:30 PM EDT) POC Glucose Monitoring Device 103(H) 70 - 100 mg/dL 04/20/2025 6:31 PM EDT [facility] Blood 04/20/2025 6:30 PM EDT 04/20/2025 6:31 PM EDT Ludin Jose MD POINT OF CARE TEST ORDERABLES Fi nal Result [facility] [address] [place] [address], [facility] * (ABNORMAL) Renal Function Panel w/EGFR (04/20/2025 6:09 PM EDT) Sodium 133 133 - 146 mmol/L 04/20/2025 7:05 PM EDT [facility] Potassium 5.4(H) 3.5 - 5.3 mmol/L 04/20/2025 7:05 PM EDT [facility] Comment:Hemolysis Present: R esults may be influenced artificially. Recommend recollection as clinically indicated. Chloride 108 98 - 110 mmol/L 04/20/2025 7:05 PM EDT [facility] CO2 19(L) 21 - 33 mmol/L 04/20/2025 7:05 PM EDT [facility] Comment:High lactate dehydro genase concentrations in patient samples may cause falsely increased bicarbonate results. If markedly elevated LDH is observed or suspected, please assess results in conjunction with patient`s clinical presentation. In cases of discrepant results, consider evaluating CO2 in with a blood gas order. Anion Gap 6 3 - 16 mmol/L 04/20/2025 7:05 PM EDT [facility] BUN 57(H) 7 - 25 mg/dL 04/20/2025 7:05 PM EDT [facility] Creatinine 1.25 0.60 - 1.30 mg/dL 04/20/2025 7:05 PM EDT [facility] Glucose 109(H) 70 - 100 mg/dL 04/20/2025 7:05 PM EDT [facility] Calcium 7.0(L) 8.6 - 10.3 mg/dL 04/20/2025 7:05 PM EDT [facility] Phosphorus 4.3 2.1 - 4.7 mg/dL 04/20/2025 7:05 PM EDT [facility] Comment:HEMOLYSIS EVIDENT. R ESULTS MAY BE INFLUENCED. Albumin 2.6(L) 3.5 - 5.7 g/dL 04/20/2025 7:05 PM EDT [facility] Osmolality, Calculated 292 278 - 305 mOsm/kg 04/20/2025 7:05 PM EDT [facility] EGFR 58 04/20/2025 7:05 PM EDT [facility] Comment:As of 2021, the estimated GFR [...] Disease. Am J Kidney Dis. 2020. Plasma 04/20/2025 6:09 PM EDT 04/20/2025 6:13 PM EDT Sergey Altman MD LAB BLOOD ORDERABLES Final Result Performing Organization Address [facility]/ZIP Co de Phone Number [facility] [address] * (ABNORMAL) Magnesium (04/20/2025 6:09 PM EDT) Magnesium 2.6(H) 1.5 - 2.5 mg/dL 04/20/2025 7:05 PM EDT [facility] Comment:HEMOLYSIS EVIDENT. R ESULTS MAY BE INFLUENCED. Plasma 04/20/2025 6:09 PM EDT 04/20/2025 6:13 PM EDT Sergey Altman MD LAB BLOOD ORDERABLES Final Result [facility] [address] [place] [address], [facility] * (ABNORMAL) Hepatic Function Panel (04/20/2025 6:09 PM EDT) Total Bilirubin 1.6(H) 0.0 - 1.5 mg/dL 04/20/2025 7:05 PM EDT [facility] Bilirubin, Direct 0.30 0.00 - 0.40 mg/dL 04/20/2025 7:05 PM EDT [facility] Comment:HEMOLYSIS EVIDENT. D IRECT BILIRUBIN CONCENTRATIONS MAY BE FALSELY DECREASED IN THE PRESENCE OF HEMOLYSIS. INTERPRET WITH CAUTION. AST 162(H) 13 - 39 U/L 04/20/2025 7:05 PM EDT [facility] ALT 137(H) 7 - 52 U/L 04/20/2025 7:05 PM EDT [facility] Alkaline Phosphatase 49 36 - 125 U/L 04/20/2025 7:05 PM EDT [facility] Total Protein 4.1(L) 6.4 - 8.9 g/dL 04/20/2025 7:05 PM EDT [facility] Albumin 2.6(L) 3.5 - 5.7 g/dL 04/20/2025 7:05 PM EDT [facility] Bilirubin, Indirect 1.30(H) 0.00 - 1.10 mg/dL 04/20/2025 7:05 PM EDT [facility] Plasma 04/20/2025 6:09 PM EDT 04/20/2025 6:13 PM EDT Sergey Altman MD LAB BLOOD ORDERABLES Final Result [facility] [address] [place] [address], [facility] * (ABNORMAL) POC Glucose Monitoring Device (04/20/2025 12:31 PM EDT) POC Glucose Monitoring Device 121(H) 70 - 100 mg/dL 04/20/2025 12:32 PM EDT [facility] Blood 04/20/2025 12:3 1 PM EDT 04/20/2025 12:32 PM EDT Ludin Jose MD POINT OF CARE TEST ORDERABLES Fi nal Result Performing Organization Address [facility] Co de Phone Number [facility] [address] [place] [address] * Tacrolimus level (04/20/2025 8:20 AM EDT) Pathologist [facility] Tacrolimus (LC-MS) 6.9 3.0 - 15.0 ng/mL 04/20/2025 2:09 PM EDT [facility] Comment:Performed via liquid chromatography tandem mass spectrometry. Detection limit: 1 ng/mL. Individual target concentrations may vary due to target organ and time after transplant. This test has been developed and its performance characteristics determined by [facility] which is certified under the Clinical Laboratory Improvement Amendment of 1988 (CLIA-88) to perform high complexity testing. The test has not been cleared or approved by the US Food and Drug Administration (FDA). The FDA has determined that such clearance is not necessary. The test should be used for clinical purposes and is not regarded as investigational. Whole Blood 04/20/2025 8:20 AM EDT 04/20/2025 8:28 AM EDT Giovanny Louis MD LAB BLOOD ORDERABLES Final Res ult Performing Organization Address [facility] Co de Phone Number [facility] [address] [place] [address] * (ABNORMAL) POC Glucose Monitoring Device (04/20/2025 5:34 AM EDT) POC Glucose Monitoring Device 144(H) 70 - 100 mg/dL 04/20/2025 5:34 AM EDT [facility] Blood 04/20/2025 5:34 AM EDT 04/20/2025 5:34 AM EDT Ludin Jose MD POINT OF CARE TEST ORDERABLES Fi nal Result Performing Organization Address City/[facility] Co de Phone Number [facility] [address] [place], [place] [address], [place] * Calcium Free, Serum (04/20/2025 1:33 AM EDT) Free Calcium, Ser 4.80 4.40 - 5.40 mg/dL 04/20/2025 1:50 AM EDT [facility] Comment:Free calcium levels vary inversely with pH by approximately 5% for each 0.1 unit of pH change. Assay results have been normalized to pH = 7.40. Serum 04/20/2025 1:33 AM EDT 04/20/2025 1:39 AM EDT Narrative [facility] - 04/20/2025 1:50 AM EDT This test has been developed and its performance characteristics determined by [facility] which is certified under the Clinical Laboratory Improvement Amendment of 1988 (CLIA-88) to perform high complexity testing. The test has not been cleared or approved by the US Food and Drug Administration (FDA). The FDA has determined that such clearance is not necessary. The test should be used for clinical purposes and is not regarded as investigational. us Ludin Jose MD LAB BLOOD ORDERABLES Final Resul t [facility] [address] * (ABNORMAL) Renal Function Panel w/EGFR (04/20/2025 1:33 AM EDT) Sodium 141 133 - 146 mmol/L 04/20/2025 2:05 AM EDT [facility] Potassium 5.2 3.5 - 5.3 mmol/L 04/20/2025 2:05 AM EDT [facility] Chloride 113(H) 98 - 110 mmol/L 04/20/2025 2:05 AM EDT [facility] CO2 21 21 - 33 mmol/L 04/20/2025 2:05 AM EDT [facility] Comment:High lactate dehydro genase concentrations in patient samples may cause falsely increased bicarbonate results. If markedly elevated LDH is observed or suspected, please assess results in conjunction with patient`s clinical presentation. In cases of discrepant results, consider evaluating CO2 in with a blood gas order. Anion Gap 7 3 - 16 mmol/L 04/20/2025 2:05 AM EDT [facility] BUN 37(H) 7 - 25 mg/dL 04/20/2025 2:05 AM EDT [facility] Creatinine 1.01 0.60 - 1.30 mg/dL 04/20/2025 2:05 AM EDT [facility] Glucose 150(H) 70 - 100 mg/dL 04/20/2025 2:05 AM EDT [facility] Calcium 7.9(L) 8.6 - 10.3 mg/dL 04/20/2025 2:05 AM EDT [facility] Phosphorus 4.9(H) 2.1 - 4.7 mg/dL 04/20/2025 2:05 AM EDT [facility] Albumin 2.8(L) 3.5 - 5.7 g/dL 04/20/2025 2:05 AM EDT [facility] Osmolality, Calculated 304 278 - 305 mOsm/kg 04/20/2025 2:05 AM EDT [facility] EGFR 74 04/20/2025 2:05 AM EDT [facility] Comment:As of 2021, the estimated GFR [...] Disease. Am J Kidney Dis. 2020. Plasma 04/20/2025 1:33 AM EDT 04/20/2025 1:39 AM EDT Sergey Altman MD LAB BLOOD ORDERABLES Final Result [facility] [address] * (ABNORMAL) Protime-INR (04/20/2025 1:33 AM EDT) Protime 21.0(H) 12.1 - 15.1 seconds 04/20/2025 1:51 AM EDT [facility] INR 1.7(H) 0.9 - 1.1 04/20/2025 1:51 AM EDT [facility] Comment: RECOMMENDED THERAPEUTIC RANGES USING INR : Stable oral anticoagulant therapy: 2.0 - 3.0 Mechanical prosthetic heart valve: 2.5 - 3.5 Recurrent acute myocardial infarction: 2.5 - 3.5 Plasma 04/20/2025 1:33 AM EDT 04/20/2025 1:39 AM EDT Sergey Altman MD LAB BLOOD ORDERABLES Final Result Performing Organization Address [facility]/ZIP Co de Phone Number [facility] [address] [place] [address]. [address] * Magnesium (04/20/2025 1:33 AM EDT) Pathologist [facility] Magnesium 2.4 1.5 - 2.5 mg/dL 04/20/2025 2:05 AM EDT [facility] Plasma 04/20/2025 1:33 AM EDT 04/20/2025 1:39 AM EDT Sergey Altman MD LAB BLOOD ORDERABLES Final Result [facility] [address] [facility]. [address] * (ABNORMAL) Hepatic Function Panel (04/20/2025 1:33 AM EDT) Total Bilirubin 1.6(H) 0.0 - 1.5 mg/dL 04/20/2025 2:05 AM EDT [facility] Bilirubin, Direct 0.59(H) 0.00 - 0.40 mg/dL 04/20/2025 2:05 AM EDT [facility] AST 163(H) 13 - 39 U/L 04/20/2025 2:05 AM EDT [facility] ALT 127(H) 7 - 52 U/L 04/20/2025 2:05 AM EDT [facility] Alkaline Phosphatase 54 36 - 125 U/L 04/20/2025 2:05 AM EDT [facility] Total Protein 4.4(L) 6.4 - 8.9 g/dL 04/20/2025 2:05 AM EDT [facility] Albumin 2.8(L) 3.5 - 5.7 g/dL 04/20/2025 2:05 AM EDT [facility] Bilirubin, Indirect 1.01 0.00 - 1.10 mg/dL 04/20/2025 2:05 AM EDT [facility] Plasma 04/20/2025 1:33 AM EDT 04/20/2025 1:39 AM EDT Sergey Altman MD LAB BLOOD ORDERABLES Final Result Performing Organization Address City/State/[facility] Co de Phone Number [facility] [address] * (ABNORMAL) CBC (04/20/2025 1:33 AM EDT) WBC 10.9(H) 3.8 - 10.8 10E3/uL 04/20/2025 1:42 AM EDT [facility] RBC 3.89 3.80 - 5.10 10E6/uL 04/20/2025 1:42 AM EDT [facility] Hemoglobin 11.8 11.7 - 15.5 g/dL 04/20/2025 1:42 AM EDT [facility] Hematocrit 34.9(L) 35.0 - 45.0 % 04/20/2025 1:42 AM EDT [facility] MCV 89.6 80.0 - 100.0 fL 04/20/2025 1:42 AM EDT [facility] MCH 30.3 27.0 - 33.0 pg 04/20/2025 1:42 AM EDT [facility] MCHC 33.8 32.0 - 36.0 g/dL 04/20/2025 1:42 AM EDT [facility] RDW 17.1(H) 11.0 - 15.0 % 04/20/2025 1:42 AM EDT [facility] Platelets 77(L) 140 - 400 10E3/uL 04/20/2025 1:42 AM EDT [facility] MPV 9.8 7.5 - 11.5 fL 04/20/2025 1:42 AM EDT [facility] Whole Blood 04/20/2025 1:33 AM EDT 04/20/2025 1:39 AM EDT Sergey Altman MD LAB BLOOD ORDERABLES Final Result [facility] [address] [facility]. [address] * (ABNORMAL) POC Glucose Monitoring Device (04/20/2025 1:26 AM EDT) POC Glucose Monitoring Device 156(H) 70 - 100 mg/dL 04/20/2025 1:28 AM EDT [facility] Blood 04/20/2025 1:26 AM EDT 04/20/2025 1:27 AM EDT Ludin Jose MD POINT OF CARE TEST ORDERABLES Fi nal Result Performing Organization Address [facility]/ZIP Co de Phone Number [facility] [address] * (ABNORMAL) Renal Function Panel w/EGFR (04/19/2025 5:27 PM EDT) Sodium 141 133 - 146 mmol/L 04/19/2025 6:23 PM EDT [facility] Potassium 5.4(H) 3.5 - 5.3 mmol/L 04/19/2025 6:23 PM EDT [facility] Chloride 113(H) 98 - 110 mmol/L 04/19/2025 6:23 PM EDT [facility] CO2 21 21 - 33 mmol/L 04/19/2025 6:23 PM EDT [facility] Comment:High lactate dehydro genase concentrations in patient samples may cause falsely increased bicarbonate results. If markedly elevated LDH is observed or suspected, please assess results in conjunction with patient`s clinical presentation. In cases of discrepant results, consider evaluating CO2 in with a blood gas order. Anion Gap 7 3 - 16 mmol/L 04/19/2025 6:23 PM EDT [facility] BUN 31(H) 7 - 25 mg/dL 04/19/2025 6:23 PM EDT [facility] Creatinine 0.92 0.60 - 1.30 mg/dL 04/19/2025 6:23 PM EDT [facility] Glucose 133(H) 70 - 100 mg/dL 04/19/2025 6:23 PM EDT [facility] Calcium 7.8(L) 8.6 - 10.3 mg/dL 04/19/2025 6:23 PM EDT [facility] Phosphorus 4.7 2.1 - 4.7 mg/dL 04/19/2025 6:23 PM EDT [facility] Albumin 2.9(L) 3.5 - 5.7 g/dL 04/19/2025 6:23 PM EDT [facility] Osmolality, Calculated 300 278 - 305 mOsm/kg 04/19/2025 6:23 PM EDT [facility] EGFR 83 04/19/2025 6:23 PM EDT [facility] Comment:As of 2021, the estimated GFR [...] Disease. Am J Kidney Dis. 2020. Plasma 04/19/2025 5:27 PM EDT 04/19/2025 5:31 PM EDT Sergey Altman MD LAB BLOOD ORDERABLES Final Result [facility] [address] [facility]. [address] * (ABNORMAL) Protime-INR (04/19/2025 5:27 PM EDT) Protime 23.0(H) 12.1 - 15.1 seconds 04/19/2025 5:52 PM EDT [facility] INR 1.9(H) 0.9 - 1.1 04/19/2025 5:52 PM EDT [facility] Comment: RECOMMENDED THERAPEUTIC RANGES USING INR : Stable oral anticoagulant therapy: 2.0 - 3.0 Mechanical prosthetic heart valve: 2.5 - 3.5 Recurrent acute myocardial infarction: 2.5 - 3.5 Plasma 04/19/2025 5:27 PM EDT 04/19/2025 5:31 PM EDT us Sergey Altman MD LAB BLOOD ORDERABLES Final Result [facility] [address] [facility]. [address] * Magnesium (04/19/2025 5:27 PM EDT) Magnesium 2.3 1.5 - 2.5 mg/dL 04/19/2025 6:23 PM EDT [facility] Plasma 04/19/2025 5:27 PM EDT 04/19/2025 5:31 PM EDT Sergey Altman MD LAB BLOOD ORDERABLES Final Result [facility] [address] [facility]. [address] * (ABNORMAL) Hepatic Function Panel (04/19/2025 5:27 PM EDT) Total Bilirubin 2.0(H) 0.0 - 1.5 mg/dL 04/19/2025 6:23 PM EDT [facility] Bilirubin, Direct 0.79(H) 0.00 - 0.40 mg/dL 04/19/2025 6:23 PM EDT [facility] AST 178(H) 13 - 39 U/L 04/19/2025 6:23 PM EDT [facility] ALT 131(H) 7 - 52 U/L 04/19/2025 6:23 PM EDT [facility] Alkaline Phosphatase 58 36 - 125 U/L 04/19/2025 6:23 PM EDT [facility] Total Protein 4.5(L) 6.4 - 8.9 g/dL 04/19/2025 6:23 PM EDT [facility] Albumin 2.9(L) 3.5 - 5.7 g/dL 04/19/2025 6:23 PM EDT [facility] Bilirubin, Indirect 1.21(H) 0.00 - 1.10 mg/dL 04/19/2025 6:23 PM EDT [facility] Plasma 04/19/2025 5:27 PM EDT 04/19/2025 5:31 PM EDT us Sergey Altman MD LAB BLOOD ORDERABLES Final Result [facility] [address] * (ABNORMAL) CBC (04/19/2025 5:27 PM EDT) WBC 13.3(H) 3.8 - 10.8 10E3/uL 04/19/2025 5:37 PM EDT [facility] RBC 4.08 3.80 - 5.10 10E6/uL 04/19/2025 5:37 PM EDT [facility] Hemoglobin 12.5 11.7 - 15.5 g/dL 04/19/2025 5:37 PM EDT [facility] Hematocrit 37.1 35.0 - 45.0 % 04/19/2025 5:37 PM EDT [facility] MCV 90.8 80.0 - 100.0 fL 04/19/2025 5:37 PM EDT [facility] MCH 30.5 27.0 - 33.0 pg 04/19/2025 5:37 PM EDT [facility] MCHC 33.6 32.0 - 36.0 g/dL 04/19/2025 5:37 PM EDT [facility] RDW 16.7(H) 11.0 - 15.0 % 04/19/2025 5:37 PM EDT [facility] Platelets 77(L) 140 - 400 10E3/uL 04/19/2025 5:37 PM EDT [facility] MPV 9.1 7.5 - 11.5 fL 04/19/2025 5:37 PM EDT [facility] Whole Blood 04/19/2025 5:27 PM EDT 04/19/2025 5:31 PM EDT Sergey Altman MD LAB BLOOD ORDERABLES Final Result Performing Organization Address City/[facility]/ZIP Co de Phone Number [facility] [address] [facility]. [address] * (ABNORMAL) POC Glucose Monitoring Device (04/19/2025 5:25 PM EDT) POC Glucose Monitoring Device 118(H) 70 - 100 mg/dL 04/19/2025 5:26 PM EDT [facility] Blood 04/19/2025 5:25 PM EDT 04/19/2025 5:26 PM EDT Ludin Jose MD POINT OF CARE TEST ORDERABLES Fi nal Result Performing Organization Address City/[facility]/ZIP Co de Phone Number [facility] [address] * [place] Antibody Reflexive Panel (04/19/2025 12:41 PM EDT) [place] IgM 0.7 <=0.9 IV 04/23/20 7:41 PM EDT [facility] Comment: INTERPRETIVE INFORMATION: [place] Antibody, IgM: [...] represented in the [facility] tests. [place] IgG 0.2 <=0.9 IV 04/23/20 7:41 PM EDT [facility] Comment: INTERPRETIVE INFORMATION: [place] Antibody, Ig.9 [...] represented in the [facility] tests. Effective March [id number] [place] Ab, IgG by [facility] will be made non-orderable. [email or web address] offers order code [id number] [place] Abs, IgG/IgM, EIA. For further information, please contact your local [facility] Deputy Chief Counsel. Serum 04/19/2025 12:4 1 PM EDT 04/23/2025 8:07 PM EDT Narrative [facility] - 04/23/2025 8:07 PM EDT PERFORMED AT: [employer] [address] [place] [address] [id number] MACHINIST [employer]PR[employer]ICE [employer]OD: Mark Atwood [facility] PHONE: [phone] us Shannan LeeD LAB BLOOD ORDERABLES Final Result [facility] [address] [place] [address], [facility] * (ABNORMAL) Renal Function Panel w/EGFR (04/19/2025 12:41 PM EDT) Pathologist [facility] Sodium 139 133 - 146 mmol/L 04/19/2025 1:22 PM EDT [facility] Potassium 5.2 3.5 - 5.3 mmol/L 04/19/2025 1:22 PM EDT [facility] Chloride 112(H) 98 - 110 mmol/L 04/19/2025 1:22 PM EDT [facility] CO2 23 21 - 33 mmol/L 04/19/2025 1:22 PM EDT [facility] Comment:High lactate dehydro genase concentrations in patient samples may cause falsely increased bicarbonate results. If markedly elevated LDH is observed or suspected, please assess results in conjunction with patient`s clinical presentation. In cases of discrepant results, consider evaluating CO2 in with a blood gas order. Anion Gap 4 3 - 16 mmol/L 04/19/2025 1:22 PM EDT [facility] BUN 27(H) 7 - 25 mg/dL 04/19/2025 1:22 PM EDT [facility] Creatinine 0.85 0.60 - 1.30 mg/dL 04/19/2025 1:22 PM T [facility] Glucose 120(H) 70 - 100 mg/dL 04/19/2025 1:22 PM EDT [facility] Calcium 7.6(L) 8.6 - 10.3 mg/dL 04/19/2025 1:22 PM EDT [facility] Phosphorus 4.1 2.1 - 4.7 mg/dL 04/19/2025 1:22 PM EDT [facility] Albumin 2.9(L) 3.5 - 5.7 g/dL 04/19/2025 1:22 PM EDT [facility] Osmolality, Calculated 294 278 - 305 mOsm/kg 04/19/2025 1:22 PM EDT [facility] EGFR >90 04/19/2025 1:22 PM EDT [facility] Comment: As of 2021, the estimated [...] >90mL/min/1.73m2. Reference: Usama C, Hernandez M, Chato ROBERTO, Suzy ND, Jyoti [place], Nas [place], et [...] renal disease. For additional information: www.kidney.org Plasma 04/19/2025 12:4 1 PM EDT 04/19/2025 12:50 PM EDT Sergey Altman MD LAB BLOOD ORDERABLES Final Result Performing Organization Address [facility] de Phone Number [facility] [address] [facility]. [address] * (ABNORMAL) Protime-INR (04/19/2025 12:41 PM EDT) Protime 22.0(H) 12.1 - 15.1 seconds 04/19/2025 1:38 PM EDT [facility] INR 1.8(H) 0.9 - 1.1 04/19/2025 1:38 PM EDT [facility] Comment: RECOMMENDED THERAPEUTIC RANGES USING INR : Stable oral anticoagulant therapy: 2.0 - 3.0 Mechanical prosthetic heart valve: 2.5 - 3.5 Recurrent acute myocardial infarction: 2.5 - 3.5 Plasma 04/19/2025 12:4 1 PM EDT 04/19/2025 12:50 PM EDT Sergey Altman MD LAB BLOOD ORDERABLES Final Result Performing Organization Address [facility] Co de Phone Number [facility] [address] [facility]. [address] * Magnesium (04/19/2025 12:41 PM EDT) Magnesium 2.2 1.5 - 2.5 mg/dL 04/19/2025 1:22 PM EDT [facility] Plasma 04/19/2025 12:4 1 PM EDT 04/19/2025 12:50 PM EDT Sergey Altman MD LAB BLOOD ORDERABLES Final Result Performing Organization Address City/[facility]/ZIP Co de Phone Number [facility] [address] [facility]. [address] * (ABNORMAL) Hepatic Function Panel (04/19/2025 12:41 PM EDT) Total Bilirubin 2.1(H) 0.0 - 1.5 mg/dL 04/19/2025 1:22 PM EDT [facility] Bilirubin, Direct 0.81(H) 0.00 - 0.40 mg/dL 04/19/2025 1:22 PM EDT [facility] AST 185(H) 13 - 39 U/L 04/19/2025 1:22 PM EDT [facility] ALT 142(H) 7 - 52 U/L 04/19/2025 1:22 PM EDT [facility] Alkaline Phosphatase 57 36 - 125 U/L 04/19/2025 1:22 PM EDT [facility] Total Protein 4.7(L) 6.4 - 8.9 g/dL 04/19/2025 1:22 PM EDT [facility] Albumin 2.9(L) 3.5 - 5.7 g/dL 04/19/2025 1:22 PM EDT [facility] Bilirubin, Indirect 1.29(H) 0.00 - 1.10 mg/dL 04/19/2025 1:22 PM EDT [facility] Plasma 04/19/2025 12:4 1 PM EDT 04/19/2025 12:50 PM EDT Sergey Altman MD LAB BLOOD ORDERABLES Final Result [facility] [address] [facility]. [address] * (ABNORMAL) CBC (04/19/2025 12:41 PM EDT) Pathologist [facility] WBC 15.6(H) 3.8 - 10.8 10E3/uL 04/19/2025 1:26 PM EDT [facility] RBC 4.24 3.80 - 5.10 10E6/uL 04/19/2025 1:26 PM EDT [facility] Hemoglobin 12.9 11.7 - 15.5 g/dL 04/19/2025 1:26 PM EDT [facility] Hematocrit 37.8 35.0 - 45.0 % 04/19/2025 1:26 PM EDT [facility] MCV 89.2 80.0 - 100.0 fL 04/19/2025 1:26 PM EDT [facility] MCH 30.4 27.0 - 33.0 pg 04/19/2025 1:26 PM EDT [facility] MCHC 34.1 32.0 - 36.0 g/dL 04/19/2025 1:26 PM EDT [facility] RDW 16.4(H) 11.0 - 15.0 % 04/19/2025 1:26 PM EDT [facility] Platelets 95(L) 140 - 400 10E3/uL 04/19/2025 1:26 PM EDT [facility] MPV 9.3 7.5 - 11.5 fL 04/19/2025 1:26 PM EDT [facility] Whole Blood 04/19/2025 12:4 1 PM EDT 04/19/2025 12:50 PM EDT Sergey Altman MD LAB BLOOD ORDERABLES Final Result [facility] [address] * (ABNORMAL) POC Glucose Monitoring Device (04/19/2025 12:37 PM EDT) [facility] POC Glucose Monitoring Device 109(H) 70 - 100 mg/dL 04/19/2025 12:37 PM EDT [facility] Blood 04/19/2025 12:3 7 PM EDT 04/19/2025 12:37 PM EDT us Ludin Jose MD POINT OF CARE TEST ORDERABLES Fi nal Result [facility] [address] [place] [address], [facility] * US Duplex [id number] Comp (04/19/2025 11:03 AM EDT) Anatomical Region Laterality Modality Abdomen, Pelvis, Testes, Vascular Ultrasound 04/19/2025 9:55 AM EDT Impressions 04/19/2025 2:31 PM EDT IMPRESSION: RIGHT UPPER QUADRANT 1. 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 2. Trace perihepatic fluid. LIVER DOPPLER 1. Patent hepatic vasculature with antegrade flow. Approved by Rosalee Jacinto MD on 04/19/2025 11:56 AM EDT I have personally reviewed the images and I agree with this report. Report Verified by: Francisco Kerr MD at 04/19/2025 2:31 PM EDT Narrative 04/19/2025 2:31 PM EDT EXAM: US ABDOMEN LIMITED EXAM: US DUPLEX [id number] COMPLETE INDICATION: Other - Must specify in Comments field COMPARISON: MRI abdomen 02/07/2025. TECHNIQUE: Grayscale imaging was performed with attention to the right upper quadrant; color and spectral (duplex) Doppler analysis of the hepatic vasculature was also performed. FINDINGS: Liver: Normal grayscale appearance of the right lobe liver allograft. No focal hepatic lesions. Partially visualized perihepatic drain. Biliary/CBD: 4 mm. No intra or extrahepatic ductal dilatation. Gallbladder: Surgically absent.. Pancreas: Obscured by overlying bowel gas. Right kidney: 10.3 cm in length. Normal parenchymal echogenicity. No hydronephrosis. Other: Trace perihepatic fluid. Retrohepatic IVC is patent. DOPPLER: Hepatic Veins: Duplex evaluation of the hepatic vasculature demonstrates normal flow in the right hepatic vein. Additionally, images were subsequently obtained demonstrating venous waveforms along the cut surface of the liver coursing towards the IVC consistent with the hepatic vein graft. Portal Veins: The right and main portal vein demonstrate hepatopetal flow. Hepatic Arteries: Right hepatic artery demonstrate normal waveform Resistive Indices Extrahepatic right hepatic artery: 0.67-0.69 Intrahepatic right hepatic artery: 0.61-0.74 Procedure Note Francisco Kerr MD - 04/19/2025 EXAM: US ABDOMEN LIMITED EXAM: US DUPLEX [id number] COMPLETE INDICATION: Other - Must specify in Comments field COMPARISON: MRI abdomen 02/07/2025. TECHNIQUE: Grayscale imaging was performed with attention to the rightupper quadrant; color and spectral (duplex) Doppler analysis of thehepatic vasculature was also performed. FINDINGS: Liver: Normal grayscale appearance of the right lobe liver allograft. Nofocal hepatic lesions. Partially visualized perihepatic drain. Biliary/CBD: 4 mm. No intra or extrahepatic ductal dilatation. Gallbladder: Surgically absent.. Pancreas: Obscured by overlying bowel gas. Right kidney: 10.3 cm in length. Normal parenchymal echogenicity. Nohydronephrosis. Other: Trace perihepatic fluid. Retrohepatic IVC is patent. DOPPLER: Hepatic Veins: Duplex evaluation of the hepatic vasculature demonstratesnormal flow in the right hepatic vein. Additionally, images weresubsequently obtained demonstrating venous waveforms along the cut surfaceof the liver coursing towards the IVC consistent with the hepatic veingraft. Portal Veins: The right and main portal vein demonstrate hepatopetalflow. Hepatic Arteries: Right hepatic artery demonstrate normal waveform Resistive Indices Extrahepatic right hepatic artery: 0.67-0.69 Intrahepatic right hepatic artery: 0.61-0.74 IMPRESSION: RIGHT UPPER QUADRANT 1. 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 2. Trace perihepatic fluid. LIVER DOPPLER 1. Patent hepatic vasculature with antegrade flow. Approved by Rosalee Jacinto MD on 04/19/2025 11:56 AM EDT I have personally reviewed the images and I agree with this report. Report Verified by: Francisco Kerr MD at 04/19/2025 2:31 PM EDT us Jostin Hess MD [facility] [place] US ORDERABLES Fin al Result * US Abdomen Limited (04/19/2025 11:03 AM EDT) Anatomical Region Laterality Modality Abdomen, Pelvis Ultrasound 04/19/2025 9:55 AM EDT Impressions 04/19/2025 2:31 PM EDT IMPRESSION: RIGHT UPPER QUADRANT 1. 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 2. Trace perihepatic fluid. LIVER DOPPLER 1. Patent hepatic vasculature with antegrade flow. Approved by Rosalee Jacinto MD on 04/19/2025 11:56 AM EDT I have personally reviewed the images and I agree with this report. Report Verified by: Francisco Kerr MD at 04/19/2025 2:31 PM EDT Narrative 04/19/2025 2:31 PM EDT EXAM: US ABDOMEN LIMITED EXAM: US DUPLEX [id number] COMPLETE INDICATION: Other - Must specify in Comments field COMPARISON: MRI abdomen 02/07/2025. TECHNIQUE: Grayscale imaging was performed with attention to the right upper quadrant; color and spectral (duplex) Doppler analysis of the hepatic vasculature was also performed. FINDINGS: Liver: Normal grayscale appearance of the right lobe liver allograft. No focal hepatic lesions. Partially visualized perihepatic drain. Biliary/CBD: 4 mm. No intra or extrahepatic ductal dilatation. Gallbladder: Surgically absent.. Pancreas: Obscured by overlying bowel gas. Right kidney: 10.3 cm in length. Normal parenchymal echogenicity. No hydronephrosis. Other: Trace perihepatic fluid. Retrohepatic IVC is patent. DOPPLER: Hepatic Veins: Duplex evaluation of the hepatic vasculature demonstrates normal flow in the right hepatic vein. Additionally, images were subsequently obtained demonstrating venous waveforms along the cut surface of the liver coursing towards the IVC consistent with the hepatic vein graft. Portal Veins: The right and main portal vein demonstrate hepatopetal flow. Hepatic Arteries: Right hepatic artery demonstrate normal waveform Resistive Indices Extrahepatic right hepatic artery: 0.67-0.69 Intrahepatic right hepatic artery: 0.61-0.74 Procedure Note Francisco Kerr MD - 04/19/2025 EXAM: US ABDOMEN LIMITED EXAM: US DUPLEX [id number] COMPLETE INDICATION: Other - Must specify in Comments field COMPARISON: MRI abdomen 02/07/2025. TECHNIQUE: Grayscale imaging was performed with attention to the rightupper quadrant; color and spectral (duplex) Doppler analysis of thehepatic vasculature was also performed. FINDINGS: Liver: Normal grayscale appearance of the right lobe liver allograft. Nofocal hepatic lesions. Partially visualized perihepatic drain. Biliary/CBD: 4 mm. No intra or extrahepatic ductal dilatation. Gallbladder: Surgically absent.. Pancreas: Obscured by overlying bowel gas. Right kidney: 10.3 cm in length. Normal parenchymal echogenicity. Nohydronephrosis. Other: Trace perihepatic fluid. Retrohepatic IVC is patent. DOPPLER: Hepatic Veins: Duplex evaluation of the hepatic vasculature demonstratesnormal flow in the right hepatic vein. Additionally, images weresubsequently obtained demonstrating venous waveforms along the cut surfaceof the liver coursing towards the IVC consistent with the hepatic veingraft. Portal Veins: The right and main portal vein demonstrate hepatopetalflow. Hepatic Arteries: Right hepatic artery demonstrate normal waveform Resistive Indices Extrahepatic right hepatic artery: 0.67-0.69 Intrahepatic right hepatic artery: 0.61-0.74 IMPRESSION: RIGHT UPPER QUADRANT 1. 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 2. Trace perihepatic fluid. LIVER DOPPLER 1. Patent hepatic vasculature with antegrade flow. Approved by Rosalee Jacinto MD on 04/19/2025 11:56 AM EDT I have personally reviewed the images and I agree with this report. Report Verified by: Francisco Kerr MD at 04/19/2025 2:31 PM EDT us Jostin Hess MD [facility] [place] US ORDERABLES Fin al Result * (ABNORMAL) Tacrolimus level (04/19/2025 8:37 AM EDT) Tacrolimus (LC-MS) <1.0(L) 3.0 - 15.0 ng/mL 04/19/2025 2:02 PM EDT [facility] Comment:Performed via liquid chromatography tandem mass spectrometry. Detection limit: 1 ng/mL. Individual target concentrations may vary due to target organ and time after transplant. This test has been developed and its performance characteristics determined by [facility] which is certified under the Clinical Laboratory Improvement Amendment of 1988 (CLIA-88) to perform high complexity testing. The test has not been cleared or approved by the US Food and Drug Administration (FDA). The FDA has determined that such clearance is not necessary. The test should be used for clinical purposes and is not regarded as investigational. Whole Blood 04/19/2025 8:37 AM EDT 04/19/2025 8:42 AM EDT Giovanny Louis MD LAB BLOOD ORDERABLES Final Res ult Performing Organization Address [facility] Co de Phone Number [facility] [address] [facility]. [address] * Lactic Acid (04/19/2025 8:37 AM EDT) Lactate 1.3 0.5 - 2.2 mmol/L 04/19/2025 9:45 AM EDT [facility] Plasma 04/19/2025 8:37 AM EDT 04/19/2025 8:41 AM EDT Sergey Altman MD LAB BLOOD ORDERABLES Final Result Performing Organization Address [facility] Co de Phone Number [facility] [address] [facility]. [address] * (ABNORMAL) POC Glucose Monitoring Device (04/19/2025 8:33 AM EDT) POC Glucose Monitoring Device 105(H) 70 - 100 mg/dL 04/19/2025 8:35 AM EDT [facility] Blood 04/19/2025 8:33 AM EDT 04/19/2025 8:34 AM EDT Ludin Jose MD POINT OF CARE TEST ORDERABLES Fi nal Result Performing Organization Address [facility] Co de Phone Number [facility] [address] [facility]. [address] * Lactic Acid (04/19/2025 6:33 AM EDT) Lactate 1.4 0.5 - 2.2 mmol/L 04/19/2025 7:55 AM EDT [facility] Plasma 04/19/2025 6:33 AM EDT 04/19/2025 7:34 AM EDT Sergey Altman MD LAB BLOOD ORDERABLES Final Result [facility] [address] [place] [place] [id number], [facility] * (ABNORMAL) Renal Function Panel w/EGFR (04/19/2025 6:33 AM EDT) Sodium 139 133 - 146 mmol/L 04/19/2025 8:23 AM EDT [facility] Potassium 5.4(H) 3.5 - 5.3 mmol/L 04/19/2025 8:23 AM EDT [facility] Chloride 111(H) 98 - 110 mmol/L 04/19/2025 8:23 AM EDT [facility] CO2 23 21 - 33 mmol/L 04/19/2025 8:23 AM EDT [facility] Comment:High lactate dehydro genase concentrations in patient samples may cause falsely increased bicarbonate results. If markedly elevated LDH is observed or suspected, please assess results in conjunction with patient`s clinical presentation. In cases of discrepant results, consider evaluating CO2 in with a blood gas order. Anion Gap 5 3 - 16 mmol/L 04/19/2025 8:23 AM EDT [facility] BUN 21 7 - 25 mg/dL 04/19/2025 8:23 AM EDT [facility] Creatinine 0.76 0.60 - 1.30 mg/dL 04/19/2025 8:23 AM EDT [facility] Glucose 118(H) 70 - 100 mg/dL 04/19/2025 8:23 AM EDT [facility] Calcium 7.7(L) 8.6 - 10.3 mg/dL 04/19/2025 8:23 AM EDT [facility] Phosphorus 3.7 2.1 - 4.7 mg/dL 04/19/2025 8:23 AM EDT [facility] Albumin 2.9(L) 3.5 - 5.7 g/dL 04/19/2025 8:23 AM EDT [facility] Osmolality, Calculated 292 278 - 305 mOsm/kg 04/19/2025 8:23 AM EDT [facility] EGFR >90 04/19/2025 8:23 AM EDT [facility] Comment: As of 2021, the estimated [...] renal disease. For additional information: [email or web address] Plasma 04/19/2025 6:33 AM EDT 04/19/2025 7:34 AM EDT Sergey Altman MD LAB BLOOD ORDERABLES Final Result [facility] [address] * (ABNORMAL) Protime-INR (04/19/2025 6:33 AM EDT) Protime 23.4(H) 12.1 - 15.1 seconds 04/19/2025 8:20 AM EDT [facility] INR 1.9(H) 0.9 - 1.1 04/19/2025 8:20 AM EDT [facility] Comment: RECOMMENDED THERAPEUTIC RANGES USING INR : Stable oral anticoagulant therapy: 2.0 - 3.0 Mechanical prosthetic heart valve: 2.5 - 3.5 Recurrent acute myocardial infarction: 2.5 - 3.5 Plasma 04/19/2025 6:33 AM EDT 04/19/2025 7:34 AM EDT Sergey Altman MD LAB BLOOD ORDERABLES Final Result [facility] [address] * Magnesium (04/19/2025 6:33 AM EDT) Magnesium 2.2 1.5 - 2.5 mg/dL 04/19/2025 8:23 AM EDT [facility] Plasma 04/19/2025 6:33 AM EDT 04/19/2025 7:34 AM EDT Sergey Altman MD LAB BLOOD ORDERABLES Final Result [facility] [address] [place] [facility]. [address] * (ABNORMAL) Hepatic Function Panel (04/19/2025 6:33 AM EDT) Total Bilirubin 2.7(H) 0.0 - 1.5 mg/dL 04/19/2025 8:23 AM EDT [facility] Bilirubin, Direct 1.01(H) 0.00 - 0.40 mg/dL 04/19/2025 8:23 AM EDT [facility] AST 193(H) 13 - 39 U/L 04/19/2025 8:23 AM EDT [facility] ALT 144(H) 7 - 52 U/L 04/19/2025 8:23 AM EDT [facility] Alkaline Phosphatase 56 36 - 125 U/L 04/19/2025 8:23 AM EDT [facility] Total Protein 4.8(L) 6.4 - 8.9 g/dL 04/19/2025 8:23 AM EDT [facility] Albumin 2.9(L) 3.5 - 5.7 g/dL 04/19/2025 8:23 AM EDT [facility] Bilirubin, Indirect 1.69(H) 0.00 - 1.10 mg/dL 04/19/2025 8:23 AM EDT [facility] Plasma 04/19/2025 6:33 AM EDT 04/19/2025 7:34 AM EDT us Sergey Altman MD LAB BLOOD ORDERABLES Final Result [facility] [address] [facility]. [address] * (ABNORMAL) CBC (04/19/2025 6:33 AM EDT) WBC 13.7(H) 3.8 - 10.8 10E3/uL 04/19/2025 8:20 AM EDT [facility] RBC 4.31 3.80 - 5.10 10E6/uL 04/19/2025 8:20 AM EDT [facility] Hemoglobin 13.0 11.7 - 15.5 g/dL 04/19/2025 8:20 AM EDT [facility] Hematocrit 38.1 35.0 - 45.0 % 04/19/2025 8:20 AM EDT [facility] MCV 88.3 80.0 - 100.0 fL 04/19/2025 8:20 AM EDT [facility] MCH 30.1 27.0 - 33.0 pg 04/19/2025 8:20 AM EDT [facility] MCHC 34.1 32.0 - 36.0 g/dL 04/19/2025 8:20 AM EDT [facility] RDW 16.3(H) 11.0 - 15.0 % 04/19/2025 8:20 AM EDT [facility] Platelets 90(L) 140 - 400 10E3/uL 04/19/2025 8:20 AM EDT [facility] Comment:Specimen checked for clots. None detected. MPV 9.5 7.5 - 11.5 fL 04/19/2025 8:20 AM EDT [facility] Whole Blood 04/19/2025 6:33 AM EDT 04/19/2025 7:34 AM EDT us Sergey Altman MD LAB BLOOD ORDERABLES Final Result [facility] [address] [facility]. [address] * (ABNORMAL) POC Glucose Monitoring Device (04/19/2025 6:24 AM EDT) POC Glucose Monitoring Device 113(H) 70 - 100 mg/dL 04/19/2025 6:27 AM EDT [facility] Blood 04/19/2025 6:24 AM EDT 04/19/2025 6:27 AM EDT Ludin Jose MD POINT OF CARE TEST ORDERABLES Fi nal Result Performing Organization Address City/[facility]/ZIP Co de Phone Number [facility] [address] * Prepare Cryoprecipitate, 1 Units (04/19/2025 6:16 AM EDT) Product Code H8702N65 HCLL Unit Number [id number] HC[facility] Dispense Status Presumed Transfused_PT HCLL Blood Expiration Date [id number] HCLL Coding System [id number] HCLL Product Code L0331B89 HCLL Unit Number [id number] HCLL Dispense Status Presumed Transfused_PT HCLL Blood Expiration Date [id number] HCLL Coding System [id number] HCLL Blood Bank Product Mario Chan MD BLOOD BANK PRODUCT ORDERAB LES Final Result Performing Organization Address City/[facility]/ZIP Co de Phone Number HC[facility] * Prepare Platelets, leukoreduced, 2 Units (04/19/2025 6:16 AM EDT) Product Code IY038G52 HCLL Unit Number [id number] [facility]LL Dispense Status Presumed Transfused_PT HCLL Blood Expiration Date [id number] HCLL Coding System JRQK266 HCLL Product Code F0186G10 HCLL Unit Number [id number] HCLL Dispense Status Presumed Transfused_PT HCLL Blood Expiration Date [id number] HCLL Coding System HALM044 [facility]LL Blood Bank Product Mario Chan MD BLOOD BANK PRODUCT ORDERAB LES Final Result Performing Organization Address City/[facility]/ZIP Co de Phone Number [facility] * Prepare Fresh Frozen Plasma, 5 Units (04/19/2025 6:15 AM EDT) Product Code I6193P24 HCLL Unit Number [id number] HCLL Dispense Status Presumed Transfused_PT HCLL Blood Expiration Date HCLL Coding System IKJX660 HCLL Product Code F2341D60 HCLL Unit Number [id number] HCLL Dispense Status Released from Crossmatch_RE HCLL Blood Expiration Date HCLL Coding System JYDE117 HCLL Product Code N1866J58 HCLL Unit Number [id number] HCLL Dispense Status Presumed Transfused_PT HCLL Blood Expiration Date HCLL Coding System LODY849 HCLL Product Code R2674G23 HCLL Unit Number [id number] HCLL Dispense Status Presumed Transfused_PT HCLL Blood Expiration Date HCLL Coding System DYNV078 HCLL Product Code T8534J44 HCLL Unit Number [id number] HCLL Dispense Status Presumed Transfused_PT HCLL Blood Expiration Date [id number] HCLL Coding System HSNN319 HCLL Blood Bank Product us Becky Goodman MD BLOOD BANK PRODUCT ORDERABLES Final Result Performing Organization Address City/[facility] Co de Phone Number HC[facility] * Prepare RBC, leukoreduced, 5 Units (04/19/2025 6:15 AM EDT) Product Code P2828F08 HCLL Unit Number [id number] HCLL Dispense Status Presumed Transfused_PT HCLL Blood Expiration Date HCLL Coding System PYLV877 HCLL Product Code L1277S04 HCLL Unit Number [id number] HCLL Dispense Status Presumed Transfused_PT HCLL Blood Expiration Date HCLL Coding System NJFO609 HCLL Product Code L3657V73 HCLL Unit Number [id number] HCLL Dispense Status Released from Crossmatch_RE HCLL Blood Expiration Date HCLL Coding System VKPB926 HCLL Product Code F5121U07 HCLL Unit Number [id number] HCLL Dispense Status Presumed Transfused_PT HCLL Blood Expiration Date HCLL Coding System RDUU566 HCLL Product Code U8211U54 HCLL Unit Number [id number] HCLL Dispense Status Released from Crossmatch_RE HCLL Blood Expiration Date HCLL Coding System XUFO346 HCLL Blood Bank Product Becky Goodman MD BLOOD BANK PRODUCT ORDERABLES Final Result Performing Organization Address [facility]/ZIP Co de Phone Number [facility] * (ABNORMAL) POC Glucose Monitoring Device (04/19/2025 4:25 AM EDT) POC Glucose Monitoring Device 120(H) 70 - 100 mg/dL 04/19/2025 4:25 AM EDT [facility] Blood 04/19/2025 4:25 AM EDT 04/19/2025 4:25 AM EDT Ludin Jose MD POINT OF CARE TEST ORDERABLES Fi nal Result Performing Organization Address [facility] Co de Phone Number [facility] [address] [facility] [place] [address], [facility] * POC Glucose Monitoring Device (04/19/2025 4:21 AM EDT) POC Glucose Monitoring Device 89 70 - 100 mg/dL 04/19/2025 4:24 AM EDT [facility] Blood 04/19/2025 4:21 AM EDT 04/19/2025 4:24 AM EDT Ludin Jose MD POINT OF CARE TEST ORDERABLES Fi nal Result Performing Organization Address City/[facility]/ZIP Co de Phone Number [facility] [address] [facility]. [address] * X-ray Portable Chest (04/19/2025 2:50 AM EDT) Anatomical Region Laterality Modality Chest Radiographic Radha ging 04/19/2025 2:44 AM EDT Impressions 04/19/2025 3:36 AM EDT IMPRESSION: Interval extubation. Otherwise no significant interval change. Approved by Mario Busch MD on 04/19/2025 3:16 AM EDT I have personally reviewed the images and I agree with this report. Report Verified by: Vipul Gannon MD at 04/19/2025 3:36 AM EDT Narrative 04/19/2025 3:36 AM EDT EXAM: XR PORTABLE CHEST INDICATION: postop TECHNIQUE: 1 view of the chest. COMPARISON: 6 hours prior. FINDINGS: Medical Devices: * Right internal jugular vein terminating over the SVC. * Enteric suction tube terminating over the expected location of the gastric fundus. Apparent kinking of the NG tube at the level of sidehole persists. * Right upper quadrant surgical drain and surgical sergio. * Interval extubation. Heart and Mediastinum: Unchanged. Lungs and Pleura: Low lung volumes with similar streaky left basilar airspace opacities. No pleural effusion or pneumothorax. Bones and Soft tissues: Unchanged. Procedure Note Lorne Gannon MD - 04/19/2025 EXAM: XR PORTABLE CHEST INDICATION: postop TECHNIQUE: 1 view of the chest. COMPARISON: 6 hours prior. FINDINGS: Medical Devices: * Right internal jugular vein terminating over the SVC. * Enteric suction tube terminating over the expected location of thegastric fundus. Apparent kinking of the NG tube at the level of sideholepersists. * Right upper quadrant surgical drain and surgical sergio. * Interval extubation. Heart and Mediastinum: Unchanged. Lungs and Pleura: Low lung volumes with similar streaky left basilarairspace opacities. No pleural effusion or pneumothorax. Bones and Soft tissues: Unchanged. IMPRESSION: Interval extubation. Otherwise no significant interval change. Approved by Mario Busch MD on 04/19/2025 3:16 AM EDT I have personally reviewed the images and I agree with this report. Report Verified by: Vipul Gannon MD at 04/19/2025 3:36 AM EDT Mohan Khan MD IMG DIAGNOSTIC IMAGING ORDAlexsandra GARG Final Result * (ABNORMAL) High Sensitivity Troponin (04/19/2025 2:27 AM EDT) Pathologist [facility] High Sensitivity Troponin 15(H) 0 - 14 ng/L 04/19/2025 3:04 AM EDT [facility] Serum 04/19/2025 2:27 AM EDT 04/19/2025 2:41 AM EDT Mohan Khan MD LAB BLOOD ORDERABLES Final Result Performing Organization Address City/[facility]/ZIP Co de Phone Number [facility] [address] * Lactic Acid (04/19/2025 2:27 AM EDT) [facility] Lactate 1.5 0.5 - 2.2 mmol/L 04/19/2025 3:01 AM EDT [facility] Plasma 04/19/2025 2:27 AM EDT 04/19/2025 2:41 AM EDT us Sergey Altman MD LAB BLOOD ORDERABLES Final Result Performing Organization Address City/[facility]/ZIP Co de Phone Number [facility] [address] * ECG 12-lead (MUSE) (04/19/2025 2:21 AM EDT) 04/19/2025 2:21 AM EDT Narrative MUSE - 04/19/2025 11:23 AM EDT Ventricular Rate: 80 BPM Atrial Rate: 80 BPM P-R Interval: 132 ms QRS Duration: 74 ms QT: 426 ms QTc: 491 ms P [place]: 45 degrees R [place]: 13 degrees T [place]: 27 degrees Diagnosis Line: NORMAL SINUS RHYTHM ^ LOW VOLTAGE QRS COMPLEXES ^ PROLONGED QTC ^ ^ Confirmed by Anthony RAMOS MD ([id number]) on 04/19/2025 11:23:28 AM us Mohan Khan MD ECG ORDERABLES Final Resul t Performing Organization Address City/[facility]/ZIP Co de Phone Number MUSE * (ABNORMAL) POC Glucose Monitoring Device (04/19/2025 2:17 AM EDT) POC Glucose Monitoring Device 120(H) 70 - 100 mg/dL 04/19/2025 2:18 AM EDT [facility] Blood 04/19/2025 2:17 AM EDT 04/19/2025 2:18 AM EDT Ludin Jose MD POINT OF CARE TEST ORDERABLES Fi nal Result Performing Organization Address [facility] Phone Number [facility] [address] [place] [address] * (ABNORMAL) POC Glucose Monitoring Device (04/19/2025 12:23 AM EDT) POC Glucose Monitoring Device 119(H) 70 - 100 mg/dL 04/19/2025 12:25 AM EDT [facility] Blood 04/19/2025 12:2 3 AM EDT 04/19/2025 12:25 AM EDT us Ludin Jose MD POINT OF CARE TEST ORDERABLES Fi nal Result Performing Organization Address [facility] de Phone Number [facility] [address] [place] [address]. [address] * Lactic Acid (04/18/2025 11:19 PM EDT) Lactate 1.6 0.5 - 2.2 mmol/L 04/18/2025 11:57 PM EDT [facility] Plasma 04/18/2025 11:1 9 PM EDT 04/18/2025 11:26 PM EDT Sergey Altman MD LAB BLOOD ORDERABLES Final Result Performing Organization Address [facility] Co de Phone Number [facility] [address] [place] [address], [facility] * (ABNORMAL) Renal Function Panel w/EGFR (04/18/2025 11:19 PM EDT) Sodium 139 133 - 146 mmol/L 04/18/2025 11:57 PM EDT [facility] Potassium 3.7 3.5 - 5.3 mmol/L 04/18/2025 11:57 PM EDT [facility] Chloride 109 98 - 110 mmol/L 04/18/2025 11:57 PM EDT [facility] CO2 23 21 - 33 mmol/L 04/18/2025 11:57 PM EDT [facility] Comment:High lactate dehydro genase concentrations in patient samples may cause falsely increased bicarbonate results. If markedly elevated LDH is observed or suspected, please assess results in conjunction with patient`s clinical presentation. In cases of discrepant results, consider evaluating CO2 in with a blood gas order. Anion Gap 7 3 - 16 mmol/L 04/18/2025 11:57 PM EDT [facility] BUN 14 7 - 25 mg/dL 04/18/2025 11:57 PM EDT [facility] Creatinine 0.65 0.60 - 1.30 mg/dL 04/18/2025 11:57 PM EDT [facility] Glucose 156(H) 70 - 100 mg/dL 04/18/2025 11:57 PM EDT [facility] Calcium 7.8(L) 8.6 - 10.3 mg/dL 04/18/2025 11:57 PM EDT [facility] Phosphorus 3.5 2.1 - 4.7 mg/dL 04/18/2025 11:57 PM EDT [facility] Albumin 2.8(L) 3.5 - 5.7 g/dL 04/18/2025 11:57 PM EDT [facility] Osmolality, Calculated 292 278 - 305 mOsm/kg 04/18/2025 11:57 PM EDT [facility] EGFR >90 04/18/2025 11:57 PM EDT [facility] Comment: As of 2021, the estimated [...] renal disease. For additional information: [email or web address] Plasma 04/18/2025 11:1 9 PM EDT 04/18/2025 11:26 PM EDT Sergey Altman MD LAB BLOOD ORDERABLES Final Result Performing Organization Address [facility] Co de Phone Number [facility] [address] * (ABNORMAL) Protime-INR (04/18/2025 11:19 PM EDT) Protime 21.8(H) 12.1 - 15.1 seconds 04/18/2025 11:39 PM EDT [facility] INR 1.8(H) 0.9 - 1.1 04/18/2025 11:39 PM EDT [facility] Comment: RECOMMENDED THERAPEUTIC RANGES USING INR : Stable oral anticoagulant therapy: 2.0 - 3.0 Mechanical prosthetic heart valve: 2.5 - 3.5 Recurrent acute myocardial infarction: 2.5 - 3.5 Plasma 04/18/2025 11:1 9 PM EDT 04/18/2025 11:26 PM EDT Sergey Altman MD LAB BLOOD ORDERABLES Final Result Performing Organization Address City/[facility]/ZIP Co de Phone Number [facility] [address] [facility]. [address] * Magnesium (04/18/2025 11:19 PM EDT) Magnesium 2.2 1.5 - 2.5 mg/dL 04/18/2025 11:57 PM EDT [facility] Plasma 04/18/2025 11:1 9 PM EDT 04/18/2025 11:26 PM EDT Sergey Altman MD LAB BLOOD ORDERABLES Final Result [facility] [address] * (ABNORMAL) Hepatic Function Panel (04/18/2025 11:19 PM EDT) Total Bilirubin 4.5(H) 0.0 - 1.5 mg/dL 04/18/2025 11:57 PM EDT [facility] Bilirubin, Direct 2.41(H) 0.00 - 0.40 mg/dL 04/18/2025 11:57 PM EDT [facility] AST 203(H) 13 - 39 U/L 04/18/2025 11:57 PM EDT [facility] ALT 139(H) 7 - 52 U/L 04/18/2025 11:57 PM EDT [facility] Alkaline Phosphatase 55 36 - 125 U/L 04/18/2025 11:57 PM EDT [facility] Total Protein 4.3(L) 6.4 - 8.9 g/dL 04/18/2025 11:57 PM EDT [facility] Albumin 2.8(L) 3.5 - 5.7 g/dL 04/18/2025 11:57 PM EDT [facility] Bilirubin, Indirect 2.09(H) 0.00 - 1.10 mg/dL 04/18/2025 11:57 PM EDT [facility] Plasma 04/18/2025 11:1 9 PM EDT 04/18/2025 11:26 PM EDT Sergey Altman MD LAB BLOOD ORDERABLES Final Result [facility] [address] [place] [facility]. [address] * (ABNORMAL) CBC (04/18/2025 11:19 PM EDT) WBC 7.8 3.8 - 10.8 10E3/uL 04/18/2025 11:36 PM EDT [facility] RBC 4.21 3.80 - 5.10 10E6/uL 04/18/2025 11:36 PM EDT [facility] Hemoglobin 12.9 11.7 - 15.5 g/dL 04/18/2025 11:36 PM EDT [facility] Hematocrit 37.1 35.0 - 45.0 % 04/18/2025 11:36 PM EDT [facility] MCV 88.2 80.0 - 100.0 fL 04/18/2025 11:36 PM EDT [facility] MCH 30.7 27.0 - 33.0 pg 04/18/2025 11:36 PM EDT [facility] MCHC 34.8 32.0 - 36.0 g/dL 04/18/2025 11:36 PM EDT [facility] RDW 16.6(H) 11.0 - 15.0 % 04/18/2025 11:36 PM EDT [facility] Platelets 69(L) 140 - 400 10E3/uL 04/18/2025 11:36 PM EDT [facility] MPV 9.1 7.5 - 11.5 fL 04/18/2025 11:36 PM EDT [facility] Whole Blood 04/18/2025 11:1 9 PM EDT 04/18/2025 11:26 PM EDT us Sergey Altman MD LAB BLOOD ORDERABLES Final Result [facility] [address] [place] [facility]. [address] * (ABNORMAL) Blood gas, arterial (04/18/2025 10:46 PM EDT) O2 Sat, Arterial 100 04/18/2025 10:52 PM EDT [facility] FIO2 40 04/18/2025 10:52 PM EDT [facility] pH, Arterial 7.38 7.35 - 7.45 04/18/2025 10:52 PM EDT [facility] pCO2, Arterial 38 35 - 45 mm Hg 04/18/2025 10:52 PM EDT [facility] pO2, Arterial 136(H) 80 - 100 mm Hg 04/18/2025 10:52 PM EDT [facility] HCO3, Arterial 23 22 - 26 mmol/L 04/18/2025 10:52 PM EDT [facility] CO2 Content,Arteri al 24 23 - 27 mmol/L 04/18/2025 10:52 PM EDT [facility] Base Excess, Arterial -2.3(L) -2.0 - 3.0 mmol/L 04/18/2025 10:52 PM EDT [facility] %HBO2, Arterial 96.6 95.0 - 98.0 % 04/18/2025 10:52 PM EDT [facility] Carboxyhemoglo bin, Arterial 1.7 % 04/18/2025 10:52 PM EDT [facility] Comment: CARBOXYHEMOGLOBIN (CO) REFERENCE RANGES: Non-Smokers: <2 % Smokers: <8 % TOXIC: >20 % Methemoglobin, Arterial 1.2 0.0 - 1.5 % 04/18/2025 10:52 PM EDT [facility] Reduced hemoglobin, Arterial 0.5 0.0 - 5.0 % 04/18/2025 10:52 PM EDT [facility] Blood, Arterial 04/18/2025 1 0:46 PM EDT 04/18/2025 10:49 PM EDT us Ludin Jose MD LAB BLOOD ORDERABLES Final Resul t [facility] [address] [place] [address], [facility] * Magnesium, STAT (04/18/2025 10:12 PM EDT) Magnesium 2.2 1.5 - 2.5 mg/dL 04/18/2025 10:51 PM EDT [facility] Plasma 04/18/2025 10:1 2 PM EDT 04/18/2025 10:16 PM EDT us Judith Murcia MD LAB BLOOD ORDERABLES Final Res ult [facility] [address] [place] [address], [facility] * (ABNORMAL) Renal Function Panel w/EGFR, STAT (04/18/2025 10:12 PM EDT) Sodium 139 133 - 146 mmol/L 04/18/2025 10:51 PM EDT [facility] Potassium 3.6 3.5 - 5.3 mmol/L 04/18/2025 10:51 PM EDT [facility] Chloride 110 98 - 110 mmol/L 04/18/2025 10:51 PM EDT [facility] CO2 22 21 - 33 mmol/L 04/18/2025 10:51 PM EDT [facility] Comment:High lactate dehydro genase concentrations in patient samples may cause falsely increased bicarbonate results. If markedly elevated LDH is observed or suspected, please assess results in conjunction with patient`s clinical presentation. In cases of discrepant results, consider evaluating CO2 in with a blood gas order. Anion Gap 7 3 - 16 mmol/L 04/18/2025 10:51 PM EDT [facility] BUN 14 7 - 25 mg/dL 04/18/2025 10:51 PM EDT [facility] Creatinine 0.65 0.60 - 1.30 mg/dL 04/18/2025 10:51 PM EDT [facility] Glucose 152(H) 70 - 100 mg/dL 04/18/2025 10:51 PM EDT [facility] Calcium 7.8(L) 8.6 - 10.3 mg/dL 04/18/2025 10:51 PM EDT [facility] Phosphorus 3.5 2.1 - 4.7 mg/dL 04/18/2025 10:51 PM EDT [facility] Albumin 2.8(L) 3.5 - 5.7 g/dL 04/18/2025 10:51 PM EDT [facility] Osmolality, Calculated 291 278 - 305 mOsm/kg 04/18/2025 10:51 PM EDT [facility] EGFR >90 04/18/2025 10:51 PM EDT [facility] Comment: As of 2021, the estimated [...] renal disease. For additional information: [email or web address] Plasma 04/18/2025 10:1 2 PM EDT 04/18/2025 10:16 PM EDT us Judith Murcia MD LAB BLOOD ORDERABLES Final Res ult [facility] [address] * (ABNORMAL) POC Glucose Monitoring Device (04/18/2025 10:09 PM EDT) [facility] POC Glucose Monitoring Device 145(H) 70 - 100 mg/dL 04/18/2025 10:20 PM EDT [facility] Blood 04/18/2025 10:0 9 PM EDT 04/18/2025 10:20 PM EDT us Ludin Jose MD POINT OF CARE TEST ORDERABLES Fi nal Result [facility] [address] * XR Portable Feeding Tube Check (04/18/2025 9:36 PM EDT) Anatomical Region Laterality Modality Abdomen, Chest Radiographic Radha ging 04/18/2025 9:25 PM EDT Impressions 04/18/2025 10:00 PM EDT IMPRESSION: 1. NG tube tip projects over the left upper abdomen, likely in the gastric fundus with apparent kinking at the level of sidehole. Report Verified by: Vipul Gannon MD at 04/18/2025 10:00 PM EDT Narrative 04/18/2025 10:00 PM EDT EXAM: XR PORTABLE FEEDING TUBE CHECK INDICATION: NG tube placement TECHNIQUE: Limited semiupright AP view chest as abdomen for NG tube placement. COMPARISON: Images done earlier today. FINDINGS: NG tube is seen crossing midline diaphragm, tip projecting over left upper abdomen, likely in the gastric fundus, retracted compared to prior exam. There is apparent kinking of the NG tube at the level of sidehole. Procedure Note Lorne Gannon MD - 04/18/2025 EXAM: XR PORTABLE FEEDING TUBE CHECK INDICATION: NG tube placement TECHNIQUE: Limited semiupright AP view chest as abdomen for NG tubeplacement. COMPARISON: Images done earlier today. FINDINGS: NG tube is seen crossing midline diaphragm, tip projecting over left upperabdomen, likely in the gastric fundus, retracted compared to prior exam.There is apparent kinking of the NG tube at the level of sidehole. IMPRESSION: 1. NG tube tip projects over the left upper abdomen, likely in thegastric fundus with apparent kinking at the level of sidehole. Report Verified by: Vipul Gannon MD at 04/18/2025 10:00 PM EDT Mohan Khan MD IM DIAGNOSTIC IMAGING ORDAlexsandra GARG Final Result * (ABNORMAL) Lactic Acid (04/18/2025 9:28 PM EDT) Lactate 2.3(H) 0.5 - 2.2 mmol/L 04/18/2025 9:53 PM EDT [facility] Plasma 04/18/2025 9:28 PM EDT 04/18/2025 9:34 PM EDT us Jostin Hess MD LAB BLOOD ORDERABLES Final Result Performing Organization Address City/[facility]/ZIP Co de Phone Number [facility] [address] [place] [address] * (ABNORMAL) POC Glucose Monitoring Device (04/18/2025 9:11 PM EDT) [facility] POC Glucose Monitoring Device 141(H) 70 - 100 mg/dL 04/18/2025 9:18 PM EDT [facility] Blood 04/18/2025 9:11 PM EDT 04/18/2025 9:17 PM EDT us Ludin Jose MD POINT OF CARE TEST ORDERABLES Fi nal Result Performing Organization Address [facility] Co de Phone Number [facility] [address] [facility]. [address] * X-ray Portable Chest (04/18/2025 8:26 PM EDT) Anatomical Region Laterality Modality Chest Radiographic Radha ging 04/18/2025 8:06 PM EDT Impressions 04/18/2025 9:12 PM EDT IMPRESSION: 1. No acute cardiopulmonary abnormality. 2. Support apparatus as detailed. Report Verified by: Vipul Gannon MD at 04/18/2025 9:12 PM EDT Narrative 04/18/2025 9:12 PM EDT EXAM: XR PORTABLE CHEST INDICATION: Line Placement TECHNIQUE: 1 view of the chest. COMPARISON: January 10, 2025. FINDINGS: Medical Devices: * Endotracheal tube projects over the trachea with the tip approximately 6.5 cm above the tata. * Tip of the right IJ approach central line projects over the SVC. * NG tube is seen crossing midline diaphragm, tip projecting over the right upper abdomen in peripyloric location. * Surgical sergio and drain projects over the right upper abdomen. Heart and Mediastinum: Cardiomediastinal silhouette is within normal limits. Lungs and Pleura: Minimal left basilar atelectasis. Lungs are otherwise clear. No pleural effusions or pneumothorax. Bones and soft tissues: No acute abnormalities. Procedure Note Lorne Gannon MD - 04/18/2025 EXAM: XR PORTABLE CHEST INDICATION: Line Placement TECHNIQUE: 1 view of the chest. COMPARISON: January 10, 2025. FINDINGS: Medical Devices: * Endotracheal tube projects over the trachea with the tip approximately6.5 cm above the tata. * Tip of the right IJ approach central line projects over the SVC. * NG tube is seen crossing midline diaphragm, tip projecting over theright upper abdomen in peripyloric location. * Surgical sergio and drain projects over the right upper abdomen. Heart and Mediastinum: Cardiomediastinal silhouette is within normallimits. Lungs and Pleura: Minimal left basilar atelectasis. Lungs are otherwiseclear. No pleural effusions or pneumothorax. Bones and soft tissues: No acute abnormalities. IMPRESSION: 1. No acute cardiopulmonary abnormality. 2. Support apparatus as detailed. Report Verified by: Vipul Gannon MD at 04/18/2025 9:12 PM EDT Jostin Hess MD IMG DIAGNOSTIC IMAGIN G ORDERABLES Final Result * (ABNORMAL) POC Glucose Monitoring Device (04/18/2025 8:05 PM EDT) [facility] POC Glucose Monitoring Device 153(H) 70 - 100 mg/dL 04/18/2025 8:07 PM EDT [facility] Blood 04/18/2025 8:05 PM EDT 04/18/2025 8:07 PM EDT us Ludin Jose MD POINT OF CARE TEST ORDERABLES Fi nal Result [facility] [address] [place] [address], [facility] * Prepare Fresh Frozen Plasma, 5 Units (04/18/2025 7:53 PM EDT) [facility] Product Code H8377W00 [facility] Unit Number [id number] [facility] Dispense Status Released from Crossmatch_RE HCLL Blood Expiration Date HCLL Coding System KJDJ988 HCLL Product Code S9969N82 [facility] Unit Number [id number] HCLL Dispense Status Released from Crossmatch_RE HCLL Blood Expiration Date HCLL Coding System XOYR987 HCLL Product Code Y5539R23 HCLL Unit Number [id number] HCLL Dispense Status Released from Crossmatch_RE HCLL Blood Expiration Date HCLL Coding System ALRQ249 HCLL Product Code J9949J10 HCLL Unit Number [id number] HCLL Dispense Status Released from Crossmatch_RE HCLL Blood Expiration Date HCLL Coding System STJM039 [facility] Product Code G2542M13 HC[facility] Unit Number [id number] HCLL Dispense Status Released from Crossmatch_RE HCLL Blood Expiration Date HCLL Coding System [id number] HCLL Blood Bank Product Ludin Jose MD BLOOD BANK PRODUCT ORDERABLES Fi nal Result [facility] * Prepare RBC, leukoreduced, 5 Units (04/18/2025 7:53 PM EDT) Pathologist [facility] Product Code W2636X58 HCLL Unit Number [id number] HCLL Dispense Status Released from Crossmatch_RE HCLL Blood Expiration Date HCLL Coding System CJZS652 HCLL Product Code F4277Q05 HCLL Unit Number [id number] HCLL Dispense Status Released from Crossmatch_RE HCLL Blood Expiration Date HCLL Coding System IWBJ421 HCLL Product Code W7733I79 HCLL Unit Number [id number] HCLL Dispense Status Released from Crossmatch_RE HCLL Blood Expiration Date HCLL Coding System UHXF195 HCLL Product Code X7823R37 HCLL Unit Number [id number] HCLL Dispense Status Released from Crossmatch_RE HCLL Blood Expiration Date HCLL Coding System GUHS465 HCLL Product Code G1295N86 HCLL Unit Number [id number] HCLL Dispense Status Released from Crossmatch_RE HCLL Blood Expiration Date HCLL Coding System ZJFT693 HCLL Blood Bank Product Ludin Jose MD BLOOD BANK PRODUCT ORDERABLES Fi nal Result Performing Organization Address [facility] Co de Phone Number [facility] * ECG 12 lead (MUSE) (04/18/2025 7:13 PM EDT) 04/18/2025 7:13 PM EDT Narrative MUSE - 04/19/2025 11:23 AM EDT Ventricular Rate: 90 BPM Atrial Rate: 90 BPM P-R Interval: 96 ms QRS Duration: 78 ms QT: 470 ms QTc: 574 ms P [place]: 53 degrees R [place]: 23 degrees T [place]: 49 degrees Diagnosis Line: Critical Test Result: Long QTc ^ SINUS RHYTHM WITH SHORT ME ^ PROLONGED QT ^ ABNORMAL ECG ^ ^ Confirmed by Anthony RAMOS MD ([id number]) on 04/19/2025 11:23:16 AM Judith Murcia MD ECG ORDERABLES Final Result Performing Organization Address [facility] de Phone Number MUSE * (ABNORMAL) POC Glucose Monitoring Device (04/18/2025 6:59 PM EDT) [facility] POC Glucose Monitoring Device 155(H) 70 - 100 mg/dL 04/18/2025 7:05 PM EDT [facility] Blood 04/18/2025 6:59 PM EDT 04/18/2025 7:05 PM EDT Ludin Jose MD POINT OF CARE TEST ORDERABLES Fi nal Result Performing Organization Address [facility] Co de Phone Number [facility] [address] [place] [address], [facility] * Calcium Free, Serum (04/18/2025 6:59 PM EDT) Free Calcium, Ser 4.77 4.40 - 5.40 mg/dL 04/18/2025 7:12 PM EDT [facility] Comment:Free calcium levels vary inversely with pH by approximately 5% for each 0.1 unit of pH change. Assay results have been normalized to pH = 7.40. Serum 04/18/2025 6:59 PM EDT 04/18/2025 7:03 PM EDT Narrative [facility] - 04/18/2025 7:12 PM EDT This test has been developed and its performance characteristics determined by [facility] which is certified under the Clinical Laboratory Improvement Amendment of 1988 (CLIA-88) to perform high complexity testing. The test has not been cleared or approved by the US Food and Drug Administration (FDA). The FDA has determined that such clearance is not necessary. The test should be used for clinical purposes and is not regarded as investigational. Mohan Khan MD LAB BLOOD ORDERABLES Final Result [facility] [address] * (ABNORMAL) TEG-Standard Global Hemostasis (Rapid TEG with Heparin Effect, Contains a Baseline TEG) (04/18/2025 6:59 PM EDT) Citrated Kaolin Reaction Time (TEGHEPARINASE) 5.0 4.6 - 9.1 minutes 04/18/2025 8:06 PM EDT [facility] Citrated Rapid Teg Maximum Amplitude (TEGHEPARINASE) 52.6 52.0 - 70.0 mm 04/18/2025 8:06 PM EDT [facility] Citrated Functional Fibrinogen Maximum Amplitude (TEGHEPARINASE) 15.3 15.0 - 32.0 mm 04/18/2025 8:06 PM EDT [facility] Citrated Kaolin W/Heparinase Reaction Time (TEGHEPARINASE) 5.1 4.3 - 8.3 minutes 04/18/2025 8:06 PM EDT [facility] Citrated Kaolin K-Time (TEGHEPARINASE) 1.7(A) 0.8 - 2.1 minutes 04/18/2025 8:06 PM EDT [facility] Citrated Kaolin Angle (TEGHEPARINASE) 71.3(A) 63.0 - 78.0 degrees 04/18/2025 8:06 PM EDT [facility] Citrated Kaolin Maximum Amplitude (TEGHEPARINASE) 54.5 52.0 - 69.0 mm 04/18/2025 8:06 PM EDT [facility] Citrated Functional Fibrinogen- Fibrinogen Level (TEGHEPARINASE) 279.2 278.0 - 581.0 mg/dL 04/18/2025 8:06 PM EDT [facility] Whole Blood (Citrate) 04/18/2025 6:59 PM EDT 04/18/2025 7:03 PM EDT Jostin Hess MD LAB BLOOD ORDERABLES Final Result Performing Organization Address City/[facility]/ZIP Co de Phone Number [facility] [address] [place] [address] * (ABNORMAL) Lactic Acid (04/18/2025 6:59 PM EDT) Lactate 3.8(H) 0.5 - 2.2 mmol/L 04/18/2025 10:10 PM EDT [facility] Plasma 04/18/2025 6:59 PM EDT 04/18/2025 7:03 PM EDT Jostin Hess MD LAB BLOOD ORDERABLES Final Result [facility] [address] * Fibrinogen (04/18/2025 6:59 PM EDT) Fibrinogen 249 218 - 406 mg/dL 04/18/2025 7:14 PM EDT [facility] Plasma 04/18/2025 6:59 PM EDT 04/18/2025 7:03 PM EDT Jostin Hess MD LAB BLOOD ORDERABLES Final Result Performing Organization Address [facility]/ZIP Co de Phone Number [facility] [address] * (ABNORMAL) Protime-INR (04/18/2025 6:59 PM EDT) Protime 21.5(H) 12.1 - 15.1 seconds 04/18/2025 7:44 PM EDT [facility] INR 1.8(H) 0.9 - 1.1 04/18/2025 7:44 PM EDT [facility] Comment: RECOMMENDED THERAPEUTIC RANGES USING INR : Stable oral anticoagulant therapy: 2.0 - 3.0 Mechanical prosthetic heart valve: 2.5 - 3.5 Recurrent acute myocardial infarction: 2.5 - 3.5 Plasma 04/18/2025 6:59 PM EDT 04/18/2025 7:03 PM EDT Jostin Hess MD LAB BLOOD ORDERABLES Final Result Performing Organization Address [facility] Co de Phone Number [facility] [address] * (ABNORMAL) Blood gas, arterial (04/18/2025 6:59 PM EDT) O2 Sat, Arterial 100 04/18/2025 7:06 PM EDT [facility] FIO2 50 04/18/2025 7:06 PM EDT [facility] pH, Arterial 7.40 7.35 - 7.45 04/18/2025 7:06 PM EDT [facility] pCO2, Arterial 33(L) 35 - 45 mm Hg 04/18/2025 7:06 PM EDT [facility] pO2, Arterial 158(H) 80 - 100 mm Hg 04/18/2025 7:06 PM EDT [facility] HCO3, Arterial 22 22 - 26 mmol/L 04/18/2025 7:06 PM EDT [facility] CO2 Content,Arteri al 21(L) 23 - 27 mmol/L 04/18/2025 7:06 PM EDT [facility] Base Excess, Arterial -3.6(L) -2.0 - 3.0 mmol/L 04/18/2025 7:06 PM EDT [facility] %HBO2, Arterial 95.1 95.0 - 98.0 % 04/18/2025 7:06 PM EDT [facility] Carboxyhemoglo bin, Arterial 2.3 % 04/18/2025 7:06 PM EDT [facility] Comment: CARBOXYHEMOGLOBIN (CO) REFERENCE RANGES: Non-Smokers: <2 % Smokers: <8 % TOXIC: >20 % Methemoglobin, Arterial 2.4(H) 0.0 - 1.5 % 04/18/2025 7:06 PM EDT [facility] Reduced hemoglobin, Arterial 0.2 0.0 - 5.0 % 04/18/2025 7:06 PM EDT [facility] Blood, Arterial 04/18/2025 6 :59 PM EDT 04/18/2025 7:03 PM EDT Jostin Hess MD LAB BLOOD ORDERABLES Final Result [facility] [address] * Magnesium (04/18/2025 6:59 PM EDT) Pathologist [facility] Magnesium 2.2 1.5 - 2.5 mg/dL 04/18/2025 10:28 PM EDT [facility] Plasma 04/18/2025 6:59 PM EDT 04/18/2025 7:03 PM EDT Jostin Hess MD LAB BLOOD ORDERABLES Final Result [facility] [address] * (ABNORMAL) Hepatic Function Panel (04/18/2025 6:59 PM EDT) Pathologist [facility] Total Bilirubin 5.1(H) 0.0 - 1.5 mg/dL 04/18/2025 10:28 PM EDT [facility] Bilirubin, Direct 2.86(H) 0.00 - 0.40 mg/dL 04/18/2025 8:44 PM EDT [facility] AST 195(H) 13 - 39 U/L 04/18/2025 8:44 PM EDT [facility] ALT 127(H) 7 - 52 U/L 04/18/2025 10:28 PM EDT [facility] Alkaline Phosphatase 53 36 - 125 U/L 04/18/2025 10:28 PM EDT [facility] Total Protein 4.0(L) 6.4 - 8.9 g/dL 04/18/2025 8:44 PM EDT [facility] Albumin 2.7(L) 3.5 - 5.7 g/dL 04/18/2025 8:44 PM EDT [facility] Bilirubin, Indirect 2.24(H) 0.00 - 1.10 mg/dL 04/18/2025 10:28 PM EDT [facility] Plasma 04/18/2025 6:59 PM EDT 04/18/2025 7:03 PM EDT us Jostin Hess MD LAB BLOOD ORDERABLES Final Result [facility] [address] * (ABNORMAL) Renal Function Panel w/EGFR (04/18/2025 6:59 PM EDT) Sodium 139 133 - 146 mmol/L 04/18/2025 8:44 PM EDT [facility] Potassium 3.6 3.5 - 5.3 mmol/L 04/18/2025 8:44 PM EDT [facility] Chloride 108 98 - 110 mmol/L 04/18/2025 8:44 PM EDT [facility] CO2 20(L) 21 - 33 mmol/L 04/18/2025 10:28 PM EDT [facility] Comment:High lactate dehydro genase concentrations in patient samples may cause falsely increased bicarbonate results. If markedly elevated LDH is observed or suspected, please assess results in conjunction with patient`s clinical presentation. In cases of discrepant results, consider evaluating CO2 in with a blood gas order. Anion Gap 11 3 - 16 mmol/L 04/18/2025 10:28 PM EDT [facility] BUN 11 7 - 25 mg/dL 04/18/2025 8:44 PM EDT [facility] Creatinine 0.66 0.60 - 1.30 mg/dL 04/18/2025 10:28 PM EDT [facility] Glucose 163(H) 70 - 100 mg/dL 04/18/2025 8:44 PM EDT [facility] Calcium 8.1(L) 8.6 - 10.3 mg/dL 04/18/2025 10:28 PM EDT [facility] Phosphorus 3.7 2.1 - 4.7 mg/dL 04/18/2025 10:28 PM EDT [facility] Albumin 2.7(L) 3.5 - 5.7 g/dL 04/18/2025 8:44 PM EDT [facility] Osmolality, Calculated 291 278 - 305 mOsm/kg 04/18/2025 8:44 PM EDT [facility] EGFR >90 04/18/2025 10:28 PM EDT [facility] Comment: As of 2021, the estimated [...] renal disease. For additional information: [email or web address] Plasma 04/18/2025 6:59 PM EDT 04/18/2025 7:03 PM EDT us Jostin Hess MD LAB BLOOD ORDERABLES Final Result [facility] [address] * (ABNORMAL) CBC (04/18/2025 6:59 PM EDT) WBC 8.7 3.8 - 10.8 10E3/uL 04/18/2025 7:16 PM EDT [facility] RBC 3.99 3.80 - 5.10 10E6/uL 04/18/2025 7:16 PM EDT [facility] Hemoglobin 12.3 11.7 - 15.5 g/dL 04/18/2025 7:16 PM EDT [facility] Hematocrit 35.8 35.0 - 45.0 % 04/18/2025 7:16 PM EDT [facility] MCV 89.7 80.0 - 100.0 fL 04/18/2025 7:16 PM EDT [facility] MCH 30.7 27.0 - 33.0 pg 04/18/2025 7:16 PM EDT [facility] MCHC 34.2 32.0 - 36.0 g/dL 04/18/2025 7:16 PM EDT [facility] RDW 16.4(H) 11.0 - 15.0 % 04/18/2025 7:16 PM EDT [facility] Platelets 84(L) 140 - 400 10E3/uL 04/18/2025 7:16 PM EDT [facility] MPV 8.2 7.5 - 11.5 fL 04/18/2025 7:16 PM EDT [facility] Whole Blood 04/18/2025 6:59 PM EDT 04/18/2025 7:03 PM EDT us Jostin Hess MD LAB BLOOD ORDERABLES Final Result [facility] [address] * POC Sample Type (04/18/2025 5:00 PM EDT) Pathologist [facility] POC Sample Type Arterial 04/18/2025 5:34 PM EDT [facility] Blood, Arterial 04/18/2025 5 :00 PM EDT 04/18/2025 5:34 PM EDT us Ludin Jose MD POINT OF CARE TEST ORDERABLES Fi nal Result [facility] [address] [facility]. [address] * POC Anion Gap (04/18/2025 5:00 PM EDT) [facility] POC Anion Gap, Arterial 9 3 - 16 mmol/L 04/18/2025 5:34 PM EDT [facility] Blood, Arterial 04/18/2025 5 :00 PM EDT 04/18/2025 5:34 PM EDT us Ludin Jose MD POINT OF CARE TEST ORDERABLES Fi nal Result Performing Organization Address City/[facility] Co de Phone Number [facility] [address] [facility]. [address] * POC Chloride (04/18/2025 5:00 PM EDT) [facility] POC Chloride 109 98 - 110 mmol/L 04/18/2025 5:34 PM EDT [facility] Blood, Arterial 04/18/2025 5 :00 PM EDT 04/18/2025 5:34 PM EDT us Ludin Jose MD POINT OF CARE TEST ORDERABLES Fi nal Result Performing Organization Address City/[facility]/ZIP Co de Phone Number [facility] [address] * (ABNORMAL) POC Hemoglobin (04/18/2025 5:00 PM EDT) [facility] POC Hemoglobin 9.6(L) 12.0 - 16.0 g/dL 04/18/2025 5:34 PM EDT [facility] Blood, Arterial 04/18/2025 5 :00 PM EDT 04/18/2025 5:34 PM EDT us Ludin Jose MD POINT OF CARE TEST ORDERABLES Fi nal Result Performing Organization Address City/[facility]/ZIP Co de Phone Number [facility] [address] [place] [address]. [address] * (ABNORMAL) POC hematocrit (04/18/2025 5:00 PM EDT) [facility] POC Hematocrit 28.0(L) 35 - 45 % 04/18/2025 5:34 PM EDT [facility] Blood, Arterial 04/18/2025 5 :00 PM EDT 04/18/2025 5:34 PM EDT us Ludin Jose MD POINT OF CARE TEST ORDERABLES Fi nal Result Performing Organization Address [facility] Co de Phone Number [facility] [address] [facility] * (ABNORMAL) POC Lactate (04/18/2025 5:00 PM EDT) [facility] POC Lactate 3.63(H) 0.50 - 2.20 mmol/L 04/18/2025 5:34 PM EDT [facility] Blood, Arterial 04/18/2025 5 :00 PM EDT 04/18/2025 5:34 PM EDT us Ludin Jose MD POINT OF CARE TEST ORDERABLES Fi nal Result Performing Organization Address City/[facility] Co de Phone Number [facility] [address] [facility]. [address] * (ABNORMAL) POC Glucose (04/18/2025 5:00 PM EDT) Pathologist [facility] POC Glucose, Arterial 136(H) 70 - 100 mg/dL 04/18/2025 5:34 PM EDT [facility] Blood, Arterial 04/18/2025 5 :00 PM EDT 04/18/2025 5:34 PM EDT us Ludin Jose MD POINT OF CARE TEST ORDERABLES Fi nal Result Performing Organization Address City/[facility] Co de Phone Number [facility] [address] [place] [address]. [address] * POC Ionized Calcium (04/18/2025 5:00 PM EDT) POC Ionized Calcium 5.00 4.50 - 5.30 mg/dL 04/18/2025 5:34 PM EDT [facility] Blood, Arterial 04/18/2025 5 :00 PM EDT 04/18/2025 5:34 PM EDT us Ludin Jose MD POINT OF CARE TEST ORDERABLES Fi nal Result Performing Organization Address [facility] Co de Phone Number [facility] [address] [facility] * POC Potassium (04/18/2025 5:00 PM EDT) [facility] POC Potassium 3.5 3.5 - 5.3 mmol/L 04/18/2025 5:34 PM EDT [facility] Blood, Arterial 04/18/2025 5 :00 PM EDT 04/18/2025 5:34 PM EDT us Ludin Jose MD POINT OF CARE TEST ORDERABLES Fi nal Result Performing Organization Address City/[facility] Co de Phone Number [facility] [address] [facility] * POC Sodium (04/18/2025 5:00 PM EDT) Pathologist [facility] POC Sodium 140 136 - 146 mmol/L 04/18/2025 5:34 PM EDT [facility] Blood, Arterial 04/18/2025 5 :00 PM EDT 04/18/2025 5:34 PM EDT us Lduin Jose MD POINT OF CARE TEST ORDERABLES Fi nal Result Performing Organization Address [facility] Co de Phone Number [facility] [address] [facility] * POC TCO2 (04/18/2025 5:00 PM EDT) POC TCO2, Arterial 24 23 - 27 mmol/L 04/18/2025 5:34 PM EDT [facility] Blood, Arterial 04/18/2025 5 :00 PM EDT 04/18/2025 5:34 PM EDT us Ludin Jose MD POINT OF CARE TEST ORDERABLES Fi nal Result Performing Organization Address [facility] Co de Phone Number [facility] [address] [facility] * (ABNORMAL) POC O2 SAT (04/18/2025 5:00 PM EDT) POC O2 Saturation, Arterial 100(H) 95 - 98 % 04/18/2025 5:34 PM EDT [facility] Blood, Arterial 04/18/2025 5 :00 PM EDT 04/18/2025 5:34 PM EDT us Ludin Jose MD POINT OF CARE TEST ORDERABLES Fi nal Result Performing Organization Address [facility] Co de Phone Number [facility] [address] [facility] * (ABNORMAL) POC Base Excess (04/18/2025 5:00 PM EDT) POC Base Excess, Arterial -3(L) -2 - 3 mmol/L 04/18/2025 5:34 PM EDT [facility] Blood, Arterial 04/18/2025 5 :00 PM EDT 04/18/2025 5:34 PM EDT us Ludin Jose MD POINT OF CARE TEST ORDERABLES Fi nal Result [facility] [address] * POC HCO3 (04/18/2025 5:00 PM EDT) POC HCO3, Arterial 22 22 - 26 mmol/L 04/18/2025 5:34 PM EDT [facility] Blood, Arterial 04/18/2025 5 :00 PM EDT 04/18/2025 5:34 PM EDT Ludin Jose MD POINT OF CARE TEST ORDERABLES Fi nal Result Performing Organization Address [facility] Co de Phone Number [facility] [address] * (ABNORMAL) POC PO2 (04/18/2025 5:00 PM EDT) POC pO2, Arterial 178(H) 80 - 100 mm Hg 04/18/2025 5:34 PM EDT [facility] Blood, Arterial 04/18/2025 5 :00 PM EDT 04/18/2025 5:34 PM EDT us Ludin Jose MD POINT OF CARE TEST ORDERABLES Fi nal Result Performing Organization Address City/[facility]/ZIP Co de Phone Number [facility] [address] [facility]. [address] * POC PCO2 (04/18/2025 5:00 PM EDT) POC pCO2, Arterial 38 35 - 45 mm Hg 04/18/2025 5:34 PM EDT [facility] Blood, Arterial 04/18/2025 5 :00 PM EDT 04/18/2025 5:34 PM EDT us Ludin Jose MD POINT OF CARE TEST ORDERABLES Fi nal Result [facility] [address] [facility] * POC pH (04/18/2025 5:00 PM EDT) POC pH, Arterial 7.38 7.35 - 7.45 04/18/2025 5:34 PM EDT [facility] Blood, Arterial 04/18/2025 5 :00 PM EDT 04/18/2025 5:34 PM EDT Result [facility] Ludin Jose MD POINT OF CARE TEST ORDERABLES Fi nal Result Performing Organization Address [facility] Co de Phone Number [facility] [address] [facility] * (ABNORMAL) POC INR (04/18/2025 4:54 PM EDT) Prothrombin Time INR, POC 1.6(H) 0.8 - 1.4 04/19/2025 6:33 AM EDT [facility] Comment: Test results may vary using different testing platforms. Serial result monitoring should be performed using the same methodology. RECOMMENDED THERAPEUTIC RANGES USING INR : Stable oral anticoagulant therapy: 2.0 - 3.0 Mechanical prosthetic heart valve: 2.5 - 3.5 Recurrent acute myocardial infarction: 2.5 - 3.5 Blood 04/18/2025 4:54 PM EDT 04/19/2025 6:32 AM EDT Ludin Jose MD POINT OF CARE TEST ORDERABLES Fi nal Result [facility] [address] * Transfuse Cryoprecipitate (04/18/2025 4:07 PM EDT) Result Formerly [facility], [facility]–1983 us Mario Chan MD NURSING TREATMENT ORDERABL ES - BLOOD ADMIN Final Result * Transfuse Cryoprecipitate (04/18/2025 4:02 PM EDT) us Mario Chan MD NURSING TREATMENT ORDERABL ES - BLOOD ADMIN Final Result * POC Sample Type (04/18/2025 4:00 PM EDT) Pathologist [facility] POC Sample Type Arterial 04/18/2025 4:58 PM EDT [facility] Blood, Arterial 04/18/2025 4 :00 PM EDT 04/18/2025 4:58 PM EDT us Ludin Jose MD POINT OF CARE TEST ORDERABLES Fi nal Result Performing Organization Address City/[facility]/ZIP Co de Phone Number [facility] [address] [place] [address]. [address] * POC Anion Gap (04/18/2025 4:00 PM EDT) [facility] POC Anion Gap, Arterial 10 3 - 16 mmol/L 04/18/2025 4:58 PM EDT [facility] Blood, Arterial 04/18/2025 4 :00 PM EDT 04/18/2025 4:58 PM EDT Ludin Jose MD POINT OF CARE TEST ORDERABLES Fi nal Result Performing Organization Address [facility] Co de Phone Number [facility] [address] [facility] * POC Chloride (04/18/2025 4:00 PM EDT) [facility] POC Chloride 108 98 - 110 mmol/L 04/18/2025 4:58 PM EDT [facility] Blood, Arterial 04/18/2025 4 :00 PM EDT 04/18/2025 4:58 PM EDT us Ludin Jose MD POINT OF CARE TEST ORDERABLES Fi nal Result Performing Organization Address [facility] de Phone Number [facility] [address] [facility] * (ABNORMAL) POC Hemoglobin (04/18/2025 4:00 PM EDT) [facility] POC Hemoglobin 9.6(L) 12.0 - 16.0 g/dL 04/18/2025 4:58 PM EDT [facility] Blood, Arterial 04/18/2025 4 :00 PM EDT 04/18/2025 4:58 PM EDT us Ludin Jose MD POINT OF CARE TEST ORDERABLES Fi nal Result Performing Organization Address City/[facility] Co de Phone Number [facility] [address] [facility] * (ABNORMAL) POC hematocrit (04/18/2025 4:00 PM EDT) POC Hematocrit 28.0(L) 35 - 45 % 04/18/2025 4:58 PM EDT [facility] Blood, Arterial 04/18/2025 4 :00 PM EDT 04/18/2025 4:58 PM EDT us Ludin Jose MD POINT OF CARE TEST ORDERABLES Fi nal Result Performing Organization Address [facility] Co de Phone Number [facility] [address] [facility] * (ABNORMAL) POC Lactate (04/18/2025 4:00 PM EDT) POC Lactate 2.56(H) 0.50 - 2.20 mmol/L 04/18/2025 4:58 PM EDT [facility] Blood, Arterial 04/18/2025 4 :00 PM EDT 04/18/2025 4:58 PM EDT us Ludin Jose MD POINT OF CARE TEST ORDERABLES Fi nal Result Performing Organization Address [facility] Co de Phone Number [facility] [address] [facility] * (ABNORMAL) POC Glucose (04/18/2025 4:00 PM EDT) POC Glucose, Arterial 133(H) 70 - 100 mg/dL 04/18/2025 4:58 PM EDT [facility] Blood, Arterial 04/18/2025 4 :00 PM EDT 04/18/2025 4:58 PM EDT us Ludin Jose MD POINT OF CARE TEST ORDERABLES Fi nal Result Performing Organization Address [facility] Co de Phone Number [facility] [address] [facility] * POC Ionized Calcium (04/18/2025 4:00 PM EDT) POC Ionized Calcium 5.20 4.50 - 5.30 mg/dL 04/18/2025 4:58 PM EDT [facility] Blood, Arterial 04/18/2025 4 :00 PM EDT 04/18/2025 4:58 PM EDT us Ludin Jose MD POINT OF CARE TEST ORDERABLES Fi nal Result Performing Organization Address [facility] de Phone Number [facility] [address] [place] [address]. [address] * POC Potassium (04/18/2025 4:00 PM EDT) POC Potassium 3.8 3.5 - 5.3 mmol/L 04/18/2025 4:58 PM EDT [facility] Blood, Arterial 04/18/2025 4 :00 PM EDT 04/18/2025 4:58 PM EDT us Ludin Jose MD POINT OF CARE TEST ORDERABLES Fi nal Result Performing Organization Address [facility] Co de Phone Number [facility] [address] [facility] * POC Sodium (04/18/2025 4:00 PM EDT) POC Sodium 141 136 - 146 mmol/L 04/18/2025 4:58 PM EDT [facility] Blood, Arterial 04/18/2025 4 :00 PM EDT 04/18/2025 4:58 PM EDT us Ludin Jose MD POINT OF CARE TEST ORDERABLES Fi nal Result Performing Organization Address City/[facility]/ZIP Co de Phone Number [facility] [address] * POC TCO2 (04/18/2025 4:00 PM EDT) POC TCO2, Arterial 24 23 - 27 mmol/L 04/18/2025 4:58 PM EDT [facility] Blood, Arterial 04/18/2025 4 :00 PM EDT 04/18/2025 4:58 PM EDT us Ludin Jose MD POINT OF CARE TEST ORDERABLES Fi nal Result Performing Organization Address [facility] Co de Phone Number [facility] [address] [place] [address]. [address] * (ABNORMAL) POC O2 SAT (04/18/2025 4:00 PM EDT) POC O2 Saturation, Arterial 100(H) 95 - 98 % 04/18/2025 4:58 PM EDT [facility] Blood, Arterial 04/18/2025 4 :00 PM EDT 04/18/2025 4:58 PM EDT us Ludin Jose MD POINT OF CARE TEST ORDERABLES Fi nal Result Performing Organization Address [facility] Co de Phone Number [facility] [address] [facility] * (ABNORMAL) POC Base Excess (04/18/2025 4:00 PM EDT) POC Base Excess, Arterial -3(L) -2 - 3 mmol/L 04/18/2025 4:58 PM EDT [facility] Blood, Arterial 04/18/2025 4 :00 PM EDT 04/18/2025 4:58 PM EDT us Ludin Jose MD POINT OF CARE TEST ORDERABLES Fi nal Result [facility] [address] * POC HCO3 (04/18/2025 4:00 PM EDT) POC HCO3, Arterial 23 22 - 26 mmol/L 04/18/2025 4:58 PM EDT [facility] Blood, Arterial 04/18/2025 4 :00 PM EDT 04/18/2025 4:58 PM EDT us Ludin Jose MD POINT OF CARE TEST ORDERABLES Fi nal Result Performing Organization Address City/[facility] Co de Phone Number [facility] [address] [facility]. [address] * (ABNORMAL) POC PO2 (04/18/2025 4:00 PM EDT) POC pO2, Arterial 290(H) 80 - 100 mm Hg 04/18/2025 4:58 PM EDT [facility] Blood, Arterial 04/18/2025 4 :00 PM EDT 04/18/2025 4:58 PM EDT us Ludin Jose MD POINT OF CARE TEST ORDERABLES Fi nal Result Performing Organization Address [facility] Co de Phone Number [facility] [address] [facility]. [address] * POC PCO2 (04/18/2025 4:00 PM EDT) POC pCO2, Arterial 41 35 - 45 mm Hg 04/18/2025 4:58 PM EDT [facility] Blood, Arterial 04/18/2025 4 :00 PM EDT 04/18/2025 4:58 PM EDT us Ludin Jose MD POINT OF CARE TEST ORDERABLES Fi nal Result Performing Organization Address City/[facility] Co de Phone Number [facility] [address] [facility]. [address] * POC pH (04/18/2025 4:00 PM EDT) POC pH, Arterial 7.35 7.35 - 7.45 04/18/2025 4:58 PM EDT [facility] Blood, Arterial 04/18/2025 4 :00 PM EDT 04/18/2025 4:58 PM EDT us Ludin Jose MD POINT OF CARE TEST ORDERABLES Fi nal Result Performing Organization Address City/[facility] Co de Phone Number [facility] [address] [facility] * POC INR (04/18/2025 3:55 PM EDT) Prothrombin Time INR, POC 1.4 0.8 - 1.4 04/19/2025 6:33 AM EDT [facility] Comment: Test results may vary using different testing platforms. Serial result monitoring should be performed using the same methodology. RECOMMENDED THERAPEUTIC RANGES USING INR : Stable oral anticoagulant therapy: 2.0 - 3.0 Mechanical prosthetic heart valve: 2.5 - 3.5 Recurrent acute myocardial infarction: 2.5 - 3.5 Blood 04/18/2025 3:55 PM EDT 04/19/2025 6:32 AM EDT Result Ashutosh Jose MD POINT OF CARE TEST ORDERABLES Fi nal Result Performing Organization Address [facility] Co de Phone Number [facility] [address] * POC Sample Type (04/18/2025 3:06 PM EDT) POC Sample Type Arterial 04/18/2025 3:58 PM EDT [facility] Blood, Arterial 04/18/2025 3 :06 PM EDT 04/18/2025 3:58 PM EDT us Ludin Jose MD POINT OF CARE TEST ORDERABLES Fi nal Result Performing Organization Address City/[facility] Co de Phone Number [facility] [address] * POC Anion Gap (04/18/2025 3:06 PM EDT) Pathologist [facility] POC Anion Gap, Arterial 10 3 - 16 mmol/L 04/18/2025 3:58 PM EDT [facility] Blood, Arterial 04/18/2025 3 :06 PM EDT 04/18/2025 3:58 PM EDT us Ludin Jose MD POINT OF CARE TEST ORDERABLES Fi nal Result [facility] [address] * POC Chloride (04/18/2025 3:06 PM EDT) [facility] POC Chloride 107 98 - 110 mmol/L 04/18/2025 3:58 PM EDT [facility] Blood, Arterial 04/18/2025 3 :06 PM EDT 04/18/2025 3:58 PM EDT us Ludin Jose MD POINT OF CARE TEST ORDERABLES Fi nal Result Performing Organization Address [facility] Co de Phone Number [facility] [address] [place] [address]. [address] * (ABNORMAL) POC Hemoglobin (04/18/2025 3:06 PM EDT) Pathologist [facility] POC Hemoglobin 9.2(L) 12.0 - 16.0 g/dL 04/18/2025 3:58 PM EDT [facility] Blood, Arterial 04/18/2025 3 :06 PM EDT 04/18/2025 3:58 PM EDT us Ludin Jose MD POINT OF CARE TEST ORDERABLES Fi nal Result Performing Organization Address City/[facility]/ZIP Co de Phone Number [facility] [address] * (ABNORMAL) POC hematocrit (04/18/2025 3:06 PM EDT) POC Hematocrit 27.0(L) 35 - 45 % 04/18/2025 3:58 PM EDT [facility] Blood, Arterial 04/18/2025 3 :06 PM EDT 04/18/2025 3:58 PM EDT us Ludin Jose MD POINT OF CARE TEST ORDERABLES Fi nal Result Performing Organization Address City/[facility]/ZIP Co de Phone Number [facility] [address] [place] [address]. [address] * (ABNORMAL) POC Lactate (04/18/2025 3:06 PM EDT) [facility] POC Lactate 3.12(H) 0.50 - 2.20 mmol/L 04/18/2025 3:58 PM EDT [facility] Blood, Arterial 04/18/2025 3 :06 PM EDT 04/18/2025 3:58 PM EDT us Ludin Jose MD POINT OF CARE TEST ORDERABLES Fi nal Result Performing Organization Address [facility] Co de Phone Number [facility] [address] [place] [address]. [address] * (ABNORMAL) POC Glucose (04/18/2025 3:06 PM EDT) Pathologist [facility] POC Glucose, Arterial 144(H) 70 - 100 mg/dL 04/18/2025 3:58 PM EDT [facility] Blood, Arterial 04/18/2025 3 :06 PM EDT 04/18/2025 3:58 PM EDT us Ludin Jose MD POINT OF CARE TEST ORDERABLES Fi nal Result Performing Organization Address City/[facility] Co de Phone Number [facility] [address] [place] [address]. [address] * POC Ionized Calcium (04/18/2025 3:06 PM EDT) Pathologist [facility] POC Ionized Calcium 4.90 4.50 - 5.30 mg/dL 04/18/2025 3:58 PM EDT [facility] Blood, Arterial 04/18/2025 3 :06 PM EDT 04/18/2025 3:58 PM EDT Ludin Jose MD POINT OF CARE TEST ORDERABLES Fi nal Result [facility] [address] [place] [address]. [address] * POC Potassium (04/18/2025 3:06 PM EDT) POC Potassium 4.0 3.5 - 5.3 mmol/L 04/18/2025 3:58 PM EDT [facility] Blood, Arterial 04/18/2025 3 :06 PM EDT 04/18/2025 3:58 PM EDT Ludin Jose MD POINT OF CARE TEST ORDERABLES Fi nal Result Performing Organization Address City/[facility]/ZIP Co de Phone Number [facility] [address] [place] [address]. [address] * POC Sodium (04/18/2025 3:06 PM EDT) Pathologist [facility] POC Sodium 139 136 - 146 mmol/L 04/18/2025 3:58 PM EDT [facility] Blood, Arterial 04/18/2025 3 :06 PM EDT 04/18/2025 3:58 PM EDT Ludin Jose MD POINT OF CARE TEST ORDERABLES Fi nal Result [facility] [address] [facility] * POC TCO2 (04/18/2025 3:06 PM EDT) POC TCO2, Arterial 23 23 - 27 mmol/L 04/18/2025 3:58 PM EDT [facility] Blood, Arterial 04/18/2025 3 :06 PM EDT 04/18/2025 3:58 PM EDT us Ludin Jose MD POINT OF CARE TEST ORDERABLES Fi nal Result Performing Organization Address City/[facility] Co de Phone Number [facility] [address] [facility]. [address] * (ABNORMAL) POC O2 SAT (04/18/2025 3:06 PM EDT) POC O2 Saturation, Arterial 99(H) 95 - 98 % 04/18/2025 3:58 PM EDT [facility] Blood, Arterial 04/18/2025 3 :06 PM EDT 04/18/2025 3:58 PM EDT us Ludin Jose MD POINT OF CARE TEST ORDERABLES Fi nal Result Performing Organization Address [facility] Co de Phone Number [facility] [address] [facility]. [address] * (ABNORMAL) POC Base Excess (04/18/2025 3:06 PM EDT) POC Base Excess, Arterial -3(L) -2 - 3 mmol/L 04/18/2025 3:58 PM EDT [facility] Blood, Arterial 04/18/2025 3 :06 PM EDT 04/18/2025 3:58 PM EDT us Ludin Jose MD POINT OF CARE TEST ORDERABLES Fi nal Result Performing Organization Address City/[facility] Co de Phone Number [facility] [address] [facility]. [address] * POC HCO3 (04/18/2025 3:06 PM EDT) POC HCO3, Arterial 22 22 - 26 mmol/L 04/18/2025 3:58 PM EDT [facility] Blood, Arterial 04/18/2025 3 :06 PM EDT 04/18/2025 3:58 PM EDT us Ludin Jose MD POINT OF CARE TEST ORDERABLES Fi nal Result Performing Organization Address City/[facility] Co de Phone Number [facility] [address] [place] [address]. [address] * (ABNORMAL) POC PO2 (04/18/2025 3:06 PM EDT) POC pO2, Arterial 152(H) 80 - 100 mm Hg 04/18/2025 3:58 PM EDT [facility] Blood, Arterial 04/18/2025 3 :06 PM EDT 04/18/2025 3:58 PM EDT us Ludin Jose MD POINT OF CARE TEST ORDERABLES Fi nal Result Performing Organization Address [facility] Co de Phone Number [facility] [address] [place] [address]. [address] * POC PCO2 (04/18/2025 3:06 PM EDT) POC pCO2, Arterial 36 35 - 45 mm Hg 04/18/2025 3:58 PM EDT [facility] Blood, Arterial 04/18/2025 3 :06 PM EDT 04/18/2025 3:58 PM EDT us Ludin Jose MD POINT OF CARE TEST ORDERABLES Fi nal Result Performing Organization Address [facility] Co de Phone Number [address] * POC pH (04/18/2025 3:06 PM EDT) POC pH, Arterial 7.39 7.35 - 7.45 04/18/2025 3:58 PM EDT [facility] Blood, Arterial 04/18/2025 3 :06 PM EDT 04/18/2025 3:58 PM EDT us Ludin Jose MD POINT OF CARE TEST ORDERABLES Fi nal Result [facility] [address] * (ABNORMAL) POC INR (04/18/2025 3:01 PM EDT) Prothrombin Time INR, POC 1.5(H) 0.8 - 1.4 04/19/2025 6:33 AM EDT [facility] Comment: Test results may vary using different testing platforms. Serial result monitoring should be performed using the same methodology. RECOMMENDED THERAPEUTIC RANGES USING INR : Stable oral anticoagulant therapy: 2.0 - 3.0 Mechanical prosthetic heart valve: 2.5 - 3.5 Recurrent acute myocardial infarction: 2.5 - 3.5 Blood 04/18/2025 3:01 PM EDT 04/19/2025 6:32 AM EDT Ludin Jose MD POINT OF CARE TEST ORDERABLES Fi nal Result Performing Organization Address [facility] Co de Phone Number [facility] [address] [facility]. [address] * Transfuse Fresh Frozen Plasma Transfusion Rate: Per dept routine (04/18/2025 2:40 PM EDT) Result Formerly [facility], [facility]–1983 us Ludin Jose MD NURSING TREATMENT ORDERABLES - B LOOD ADMIN Final Result * Transfuse Platelets (04/18/2025 2:37 PM EDT) us Mario Chan MD NURSING TREATMENT ORDERABL ES - BLOOD ADMIN Final Result * POC Sample Type (04/18/2025 2:10 PM EDT) Pathologist [facility] POC Sample Type Arterial 04/18/2025 3:03 PM EDT [facility] Blood, Arterial 04/18/2025 2 :10 PM EDT 04/18/2025 3:03 PM EDT Ludin Jose MD POINT OF CARE TEST ORDERABLES Fi nal Result Performing Organization Address City/[facility]/ZIP Co de Phone Number [facility] [address] [facility]. [address] * POC Anion Gap (04/18/2025 2:10 PM EDT) [facility] POC Anion Gap, Arterial 10 3 - 16 mmol/L 04/18/2025 3:03 PM EDT [facility] Blood, Arterial 04/18/2025 2 :10 PM EDT 04/18/2025 3:03 PM EDT us Ludin Jose MD POINT OF CARE TEST ORDERABLES Fi nal Result [facility] [address] [facility]. [address] * POC Chloride (04/18/2025 2:10 PM EDT) [facility] POC Chloride 107 98 - 110 mmol/L 04/18/2025 3:03 PM EDT [facility] Blood, Arterial 04/18/2025 2 :10 PM EDT 04/18/2025 3:03 PM EDT Ludin Jose MD POINT OF CARE TEST ORDERABLES Fi nal Result Performing Organization Address [facility] Co de Phone Number [facility] [address] [facility]. [address] * (ABNORMAL) POC Hemoglobin (04/18/2025 2:10 PM EDT) [facility] POC Hemoglobin 9.0(L) 12.0 - 16.0 g/dL 04/18/2025 3:03 PM EDT [facility] Blood, Arterial 04/18/2025 2 :10 PM EDT 04/18/2025 3:03 PM EDT us Ludin Jose MD POINT OF CARE TEST ORDERABLES Fi nal Result Performing Organization Address City/[facility] Co de Phone Number [facility] [address] * (ABNORMAL) POC hematocrit (04/18/2025 2:10 PM EDT) [facility] POC Hematocrit 26.0(L) 35 - 45 % 04/18/2025 3:03 PM EDT [facility] Blood, Arterial 04/18/2025 2 :10 PM EDT 04/18/2025 3:03 PM EDT us Ludin Jose MD POINT OF CARE TEST ORDERABLES Fi nal Result Performing Organization Address City/[facility] Co de Phone Number [facility] [address] [place] [address]. [address] * (ABNORMAL) POC Lactate (04/18/2025 2:10 PM EDT) POC Lactate 2.87(H) 0.50 - 2.20 mmol/L 04/18/2025 3:03 PM EDT [facility] Blood, Arterial 04/18/2025 2 :10 PM EDT 04/18/2025 3:03 PM EDT us Ludin Jose MD POINT OF CARE TEST ORDERABLES Fi nal Result Performing Organization Address [facility] Co de Phone Number [facility] [address] [facility]. [address] * (ABNORMAL) POC Glucose (04/18/2025 2:10 PM EDT) POC Glucose, Arterial 158(H) 70 - 100 mg/dL 04/18/2025 3:03 PM EDT [facility] Blood, Arterial 04/18/2025 2 :10 PM EDT 04/18/2025 3:03 PM EDT us Ludin Jose MD POINT OF CARE TEST ORDERABLES Fi nal Result Performing Organization Address City/[facility] Co de Phone Number [facility] [address] [place] [address]. [address] * (ABNORMAL) POC Ionized Calcium (04/18/2025 2:10 PM EDT) POC Ionized Calcium 5.40(H) 4.50 - 5.30 mg/dL 04/18/2025 3:03 PM EDT [facility] Blood, Arterial 04/18/2025 2 :10 PM EDT 04/18/2025 3:03 PM EDT us Ludin Jose MD POINT OF CARE TEST ORDERABLES Fi nal Result Performing Organization Address City/[facility]/ZIP Co de Phone Number [facility] [address] [facility]. [address] * POC Potassium (04/18/2025 2:10 PM EDT) POC Potassium 4.2 3.5 - 5.3 mmol/L 04/18/2025 3:03 PM EDT [facility] Blood, Arterial 04/18/2025 2 :10 PM EDT 04/18/2025 3:03 PM EDT us Ludin Jose MD POINT OF CARE TEST ORDERABLES Fi nal Result Performing Organization Address [facility] Co de Phone Number [facility] [address] [facility]. [address] * POC Sodium (04/18/2025 2:10 PM EDT) POC Sodium 139 136 - 146 mmol/L 04/18/2025 3:03 PM EDT [facility] Blood, Arterial 04/18/2025 2 :10 PM EDT 04/18/2025 3:03 PM EDT us Ludin Jose MD POINT OF CARE TEST ORDERABLES Fi nal Result Performing Organization Address City/[facility]/ZIP Co de Phone Number [facility] [address] [facility]. [address] * POC TCO2 (04/18/2025 2:10 PM EDT) POC TCO2, Arterial 23 23 - 27 mmol/L 04/18/2025 3:03 PM EDT [facility] Blood, Arterial 04/18/2025 2 :10 PM EDT 04/18/2025 3:03 PM EDT us Ludin Jose MD POINT OF CARE TEST ORDERABLES Fi nal Result Performing Organization Address [facility] Co de Phone Number [facility] [address] [place] [address]. [address] * (ABNORMAL) POC O2 SAT (04/18/2025 2:10 PM EDT) POC O2 Saturation, Arterial 100(H) 95 - 98 % 04/18/2025 3:03 PM EDT [facility] Blood, Arterial 04/18/2025 2 :10 PM EDT 04/18/2025 3:03 PM EDT us Ludin Jose MD POINT OF CARE TEST ORDERABLES Fi nal Result Performing Organization Address [facility] Co de Phone Number [facility] [address] [place] [address]. [address] * POC Base Excess (04/18/2025 2:10 PM EDT) POC Base Excess, Arterial -2 -2 - 3 mmol/L 04/18/2025 3:03 PM EDT [facility] Blood, Arterial 04/18/2025 2 :10 PM EDT 04/18/2025 3:03 PM EDT us Ludin Jose MD POINT OF CARE TEST ORDERABLES Fi nal Result Performing Organization Address [facility] Co de Phone Number [facility] [address] [place] [address]. [address] * POC HCO3 (04/18/2025 2:10 PM EDT) POC HCO3, Arterial 22 22 - 26 mmol/L 04/18/2025 3:03 PM EDT [facility] Blood, Arterial 04/18/2025 2 :10 PM EDT 04/18/2025 3:03 PM EDT us Ludin Jose MD POINT OF CARE TEST ORDERABLES Fi nal Result Performing Organization Address [facility]/ZIP Co de Phone Number [facility] [address] * (ABNORMAL) POC PO2 (04/18/2025 2:10 PM EDT) POC pO2, Arterial 175(H) 80 - 100 mm Hg 04/18/2025 3:03 PM EDT [facility] Blood, Arterial 04/18/2025 2 :10 PM EDT 04/18/2025 3:03 PM EDT us Ludin Jose MD POINT OF CARE TEST ORDERABLES Fi nal Result Performing Organization Address [facility] Co de Phone Number [facility] [address] [facility]. [address] * (ABNORMAL) POC PCO2 (04/18/2025 2:10 PM EDT) POC pCO2, Arterial 33(L) 35 - 45 mm Hg 04/18/2025 3:03 PM EDT [facility] Blood, Arterial 04/18/2025 2 :10 PM EDT 04/18/2025 3:03 PM EDT us Ludin Jose MD POINT OF CARE TEST ORDERABLES Fi nal Result Performing Organization Address [facility] Co de Phone Number [facility] [address] [facility]. [address] * POC pH (04/18/2025 2:10 PM EDT) POC pH, Arterial 7.43 7.35 - 7.45 04/18/2025 3:03 PM EDT [facility] Blood, Arterial 04/18/2025 2 :10 PM EDT 04/18/2025 3:03 PM EDT us Ludin Jose MD POINT OF CARE TEST ORDERABLES Fi nal Result Performing Organization Address City/[facility] Co de Phone Number [facility] [address] * (ABNORMAL) POC INR (04/18/2025 2:05 PM EDT) [facility] Prothrombin Time INR, POC 2.2(H) 0.8 - 1.4 04/19/2025 6:33 AM EDT [facility] Comment: Test results may vary using different testing platforms. Serial result monitoring should be performed using the same methodology. RECOMMENDED THERAPEUTIC RANGES USING INR : Stable oral anticoagulant therapy: 2.0 - 3.0 Mechanical prosthetic heart valve: 2.5 - 3.5 Recurrent acute myocardial infarction: 2.5 - 3.5 Blood 04/18/2025 2:05 PM EDT 04/19/2025 6:32 AM EDT Result [facility] Ludin Jose MD POINT OF CARE TEST ORDERABLES Fi nal Result Performing Organization Address [facility]/ZIP Co de Phone Number [facility] [address] * Transfuse Platelets (04/18/2025 2:00 PM EDT) Mario Chan MD NURSING TREATMENT ORDERABL ES - BLOOD ADMIN Final Result * (ABNORMAL) Fibrinogen (04/18/2025 1:52 PM EDT) [facility] Fibrinogen 130(L) 218 - 406 mg/dL 04/18/2025 2:30 PM EDT [facility] Plasma 04/18/2025 1:52 PM EDT 04/18/2025 2:03 PM EDT Mario Chan MD LAB BLOOD ORDERABLES Final Result Performing Organization Address City/[facility]/ZIP Co de Phone Number [facility] [address] [facility]. [address] * (ABNORMAL) TEG-Bypass/ECMO/Liver HN (Factor function, Platelet/Fibrin Clot Strength w/Clot Breakdown, Heparinase In All Channels) (04/18/2025 1:52 PM EDT) [facility] Citrated Kaolin Reaction Time (TEGECMOLIVER) Unable to reach an endpoint / Test Timed Out 4.6 - 9.1 minutes 04/18/2025 3:30 PM EDT [facility] Citrated Kaolin W/Heparinase Reaction Time (TEGECMOLIVER) 7.3 4.3 - 8.3 minutes 04/18/2025 3:30 PM EDT [facility] Citrated Kaolin Maximum Amplitude (TEGECMOLIVER) Unable to reach an endpoint / Test Timed Out 52.0 - 69.0 mm 04/18/2025 3:30 PM EDT [facility] Citrated Functional Fibrinogen W/Heparinase Maximum Amplitude(TEGE CMOLIVER) 11.0(L) 15.0 - 34.0 mm 04/18/2025 3:30 PM EDT [facility] Citrated Rapid Teg W/Heparinase Maximum Amplitude (TEGECMOLIVER) 43.2(L) 53.0 - 69.0 mm 04/18/2025 3:30 PM EDT [facility] Citrated Kaolin w/Heparinase Percent Lysis (TEGECMOLIVER) 0.0 0.0 - 3.2 % 04/18/2025 3:30 PM EDT [facility] Whole Blood (Citrate) 04/18/2025 1:52 PM EDT 04/18/2025 2:03 PM EDT Mario Chan MD LAB BLOOD ORDERABLES Final Result Performing Organization Address City/State/[facility] Co de Phone Number [facility] [address] * (ABNORMAL) CBC, STAT (04/18/2025 1:52 PM EDT) [facility] WBC 7.2 3.8 - 10.8 10E3/uL 04/18/2025 2:33 PM EDT [facility] RBC 3.33(L) 3.80 - 5.10 10E6/uL 04/18/2025 2:33 PM EDT [facility] Hemoglobin 10.2(L) 11.7 - 15.5 g/dL 04/18/2025 2:33 PM EDT [facility] Hematocrit 29.6(L) 35.0 - 45.0 % 04/18/2025 2:33 PM EDT [facility] MCV 89.2 80.0 - 100.0 fL 04/18/2025 2:33 PM EDT [facility] MCH 30.6 27.0 - 33.0 pg 04/18/2025 2:33 PM EDT [facility] MCHC 34.3 32.0 - 36.0 g/dL 04/18/2025 2:33 PM EDT [facility] RDW 16.0(H) 11.0 - 15.0 % 04/18/2025 2:33 PM EDT [facility] Platelets 80(L) 140 - 400 10E3/uL 04/18/2025 2:33 PM EDT [facility] MPV 9.4 7.5 - 11.5 fL 04/18/2025 2:33 PM EDT [facility] Whole Blood 04/18/2025 1:52 PM EDT 04/18/2025 2:03 PM EDT us Mario Chan MD LAB BLOOD ORDERABLES Final Result [facility] [address] [facility]. [address] * (ABNORMAL) Protime-INR, STAT (04/18/2025 1:52 PM EDT) Protime 23.1(H) 12.1 - 15.1 seconds 04/18/2025 2:25 PM EDT [facility] INR 1.9(H) 0.9 - 1.1 04/18/2025 2:25 PM EDT [facility] Comment: RECOMMENDED THERAPEUTIC RANGES USING INR : Stable oral anticoagulant therapy: 2.0 - 3.0 Mechanical prosthetic heart valve: 2.5 - 3.5 Recurrent acute myocardial infarction: 2.5 - 3.5 Plasma 04/18/2025 1:52 PM EDT 04/18/2025 2:03 PM EDT us Mario Chan MD LAB BLOOD ORDERABLES Final Result [facility] [address] * POC Sample Type (04/18/2025 1:39 PM EDT) [facility] POC Sample Type Arterial 04/18/2025 2:07 PM EDT [facility] Blood, Arterial 04/18/2025 1 :39 PM EDT 04/18/2025 2:07 PM EDT us Ludin Jose MD POINT OF CARE TEST ORDERABLES Fi nal Result [facility] [address] [facility]. [address] * POC Anion Gap (04/18/2025 1:39 PM EDT) [facility] POC Anion Gap, Arterial 14 3 - 16 mmol/L 04/18/2025 2:07 PM EDT [facility] Blood, Arterial 04/18/2025 1 :39 PM EDT 04/18/2025 2:07 PM EDT us Ludin Jose MD POINT OF CARE TEST ORDERABLES Fi nal Result Performing Organization Address [facility] Co de Phone Number [facility] [address] [place] [address]. [address] * POC Chloride (04/18/2025 1:39 PM EDT) [facility] POC Chloride 106 98 - 110 mmol/L 04/18/2025 2:07 PM EDT [facility] Blood, Arterial 04/18/2025 1 :39 PM EDT 04/18/2025 2:07 PM EDT us Ludin Jose MD POINT OF CARE TEST ORDERABLES Fi nal Result Performing Organization Address City/[facility]/ZIP Co de Phone Number [facility] [address] [facility]. [address] * (ABNORMAL) POC Hemoglobin (04/18/2025 1:39 PM EDT) POC Hemoglobin 7.8(L) 12.0 - 16.0 g/dL 04/18/2025 2:07 PM EDT [facility] Blood, Arterial 04/18/2025 1 :39 PM EDT 04/18/2025 2:07 PM EDT us Ludin Jose MD POINT OF CARE TEST ORDERABLES Fi nal Result Performing Organization Address City/[facility] Co de Phone Number [facility] [address] [place] [address]. [address] * (ABNORMAL) POC hematocrit (04/18/2025 1:39 PM EDT) [facility] POC Hematocrit 23.0(L) 35 - 45 % 04/18/2025 2:07 PM EDT [facility] Blood, Arterial 04/18/2025 1 :39 PM EDT 04/18/2025 2:07 PM EDT us Ludin Jose MD POINT OF CARE TEST ORDERABLES Fi nal Result Performing Organization Address [facility] de Phone Number [facility] [address] [facility]. [address] * (ABNORMAL) POC Lactate (04/18/2025 1:39 PM EDT) [facility] POC Lactate 2.42(H) 0.50 - 2.20 mmol/L 04/18/2025 2:07 PM EDT [facility] Blood, Arterial 04/18/2025 1 :39 PM EDT 04/18/2025 2:07 PM EDT us Ludin Jose MD POINT OF CARE TEST ORDERABLES Fi nal Result Performing Organization Address City/[facility] Co de Phone Number [facility] [address] [place] [address] * (ABNORMAL) POC Glucose (04/18/2025 1:39 PM EDT) [facility] POC Glucose, Arterial 124(H) 70 - 100 mg/dL 04/18/2025 2:07 PM EDT [facility] Blood, Arterial 04/18/2025 1 :39 PM EDT 04/18/2025 2:07 PM EDT us Ludin Jose MD POINT OF CARE TEST ORDERABLES Fi nal Result [facility] [address] [place] [address]. [address] * (ABNORMAL) POC Ionized Calcium (04/18/2025 1:39 PM EDT) Pathologist [facility] POC Ionized Calcium 4.10(L) 4.50 - 5.30 mg/dL 04/18/2025 2:07 PM EDT [facility] Blood, Arterial 04/18/2025 1 :39 PM EDT 04/18/2025 2:07 PM EDT us Ludin Jose MD POINT OF CARE TEST ORDERABLES Fi nal Result Performing Organization Address City/[facility]/ZIP Co de Phone Number [facility] [address] [facility]. [address] * POC Potassium (04/18/2025 1:39 PM EDT) [facility] POC Potassium 4.4 3.5 - 5.3 mmol/L 04/18/2025 2:07 PM EDT [facility] Blood, Arterial 04/18/2025 1 :39 PM EDT 04/18/2025 2:07 PM EDT us Ludin Jose MD POINT OF CARE TEST ORDERABLES Fi nal Result [facility] [address] [facility]. [address] * POC Sodium (04/18/2025 1:39 PM EDT) [facility] POC Sodium 141 136 - 146 mmol/L 04/18/2025 2:07 PM EDT [facility] Blood, Arterial 04/18/2025 1 :39 PM EDT 04/18/2025 2:07 PM EDT us Ludin Jose MD POINT OF CARE TEST ORDERABLES Fi nal Result Performing Organization Address [facility] Co de Phone Number [facility] [address] * (ABNORMAL) POC TCO2 (04/18/2025 1:39 PM EDT) POC TCO2, Arterial 22(L) 23 - 27 mmol/L 04/18/2025 2:07 PM EDT [facility] Blood, Arterial 04/18/2025 1 :39 PM EDT 04/18/2025 2:07 PM EDT us Ludin Jose MD POINT OF CARE TEST ORDERABLES Fi nal Result Performing Organization Address [facility] Co de Phone Number [facility] [address] [facility]. [address] * (ABNORMAL) POC O2 SAT (04/18/2025 1:39 PM EDT) POC O2 Saturation, Arterial 100(H) 95 - 98 % 04/18/2025 2:07 PM EDT [facility] Blood, Arterial 04/18/2025 1 :39 PM EDT 04/18/2025 2:07 PM EDT us Ludin Jose MD POINT OF CARE TEST ORDERABLES Fi nal Result Performing Organization Address [facility] Co de Phone Number [facility] [address] [facility]. [address] * (ABNORMAL) POC Base Excess (04/18/2025 1:39 PM EDT) POC Base Excess, Arterial -3(L) -2 - 3 mmol/L 04/18/2025 2:07 PM EDT [facility] Blood, Arterial 04/18/2025 1 :39 PM EDT 04/18/2025 2:07 PM EDT us Lduin Jose MD POINT OF CARE TEST ORDERABLES Fi nal Result Performing Organization Address [facility] Co de Phone Number [facility] [address] [place] [address]. [address] * (ABNORMAL) POC HCO3 (04/18/2025 1:39 PM EDT) POC HCO3, Arterial 21(L) 22 - 26 mmol/L 04/18/2025 2:07 PM EDT [facility] Blood, Arterial 04/18/2025 1 :39 PM EDT 04/18/2025 2:07 PM EDT us Ludin Jose MD POINT OF CARE TEST ORDERABLES Fi nal Result Performing Organization Address [facility] de Phone Number [facility] [address] [place] [address]. [address] * (ABNORMAL) POC PO2 (04/18/2025 1:39 PM EDT) POC pO2, Arterial 426(H) 80 - 100 mm Hg 04/18/2025 2:07 PM EDT [facility] Blood, Arterial 04/18/2025 1 :39 PM EDT 04/18/2025 2:07 PM EDT us Ludin Jose MD POINT OF CARE TEST ORDERABLES Fi nal Result Performing Organization Address [facility] Co de Phone Number [facility] [address] [place] [address]. [address] * (ABNORMAL) POC PCO2 (04/18/2025 1:39 PM EDT) POC pCO2, Arterial 34(L) 35 - 45 mm Hg 04/18/2025 2:07 PM EDT [facility] Blood, Arterial 04/18/2025 1 :39 PM EDT 04/18/2025 2:07 PM EDT us Ludin Jose MD POINT OF CARE TEST ORDERABLES Fi nal Result Performing Organization Address City/[facility]/ZIP Co de Phone Number [facility] [address] * POC pH (04/18/2025 1:39 PM EDT) POC pH, Arterial 7.40 7.35 - 7.45 04/18/2025 2:07 PM EDT [facility] Blood, Arterial 04/18/2025 1 :39 PM EDT 04/18/2025 2:07 PM EDT us Ludin Jose MD POINT OF CARE TEST ORDERABLES Fi nal Result Performing Organization Address [facility] Co de Phone Number [facility] [address] [facility]. [address] * (ABNORMAL) POC INR (04/18/2025 1:33 PM EDT) Prothrombin Time INR, POC 2.4(H) 0.8 - 1.4 04/19/2025 6:33 AM EDT [facility] Comment: Test results may vary using different testing platforms. Serial result monitoring should be performed using the same methodology. RECOMMENDED THERAPEUTIC RANGES USING INR : Stable oral anticoagulant therapy: 2.0 - 3.0 Mechanical prosthetic heart valve: 2.5 - 3.5 Recurrent acute myocardial infarction: 2.5 - 3.5 Blood 04/18/2025 1:33 PM EDT 04/19/2025 6:32 AM EDT us Ludin Jose MD POINT OF CARE TEST ORDERABLES Fi nal Result Performing Organization Address [facility] Co de Phone Number [facility] [address] * Transfuse Fresh Frozen Plasma Transfusion Rate: Per dept routine (04/18/2025 1:30 PM EDT) Result Ashutosh Jose MD NURSING TREATMENT ORDERABLES - B LOOD ADMIN Final Result * Transfuse Fresh Frozen Plasma Transfusion Rate: Per dept routine (04/18/2025 1:19 PM EDT) Result Ashutosh Jose MD NURSING TREATMENT ORDERABLES - B LOOD ADMIN Final Result * Transfuse RBC Transfusion Rate: Per dept routine (04/18/2025 1:19 PM EDT) Result Ashutosh Jose MD NURSING TREATMENT ORDERABLES - B LOOD ADMIN Final Result * Transfuse Fresh Frozen Plasma Transfusion Rate: Per dept routine (04/18/2025 1:00 PM EDT) Result Ashutosh Jose MD NURSING TREATMENT ORDERABLES - B LOOD ADMIN Final Result * POC Sample Type (04/18/2025 12:56 PM EDT) [facility] POC Sample Type Arterial 04/18/2025 1:37 PM EDT [facility] Blood, Arterial 04/18/2025 1 2:56 PM EDT 04/18/2025 1:37 PM EDT Result Ashutosh Jose MD POINT OF CARE TEST ORDERABLES Fi nal Result Performing Organization Address City/[facility] Co de Phone Number [facility] [address] [place] [address] * POC Anion Gap (04/18/2025 12:56 PM EDT) [facility] POC Anion Gap, Arterial 9 3 - 16 mmol/L 04/18/2025 1:37 PM EDT [facility] Blood, Arterial 04/18/2025 1 2:56 PM EDT 04/18/2025 1:37 PM EDT Result Ashutosh Jose MD POINT OF CARE TEST ORDERABLES Fi nal Result [facility] [address] * POC Chloride (04/18/2025 12:56 PM EDT) [facility] POC Chloride 110 98 - 110 mmol/L 04/18/2025 1:37 PM EDT [facility] Blood, Arterial 04/18/2025 1 2:56 PM EDT 04/18/2025 1:37 PM EDT us Ludin Jose MD POINT OF CARE TEST ORDERABLES Fi nal Result Performing Organization Address City/State/[facility] Co de Phone Number [facility] [address] [facility]. [address] * (ABNORMAL) POC Hemoglobin (04/18/2025 12:56 PM EDT) POC Hemoglobin 9.7(L) 12.0 - 16.0 g/dL 04/18/2025 1:37 PM EDT [facility] Blood, Arterial 04/18/2025 1 2:56 PM EDT 04/18/2025 1:37 PM EDT us Ludin Jose MD POINT OF CARE TEST ORDERABLES Fi nal Result Performing Organization Address City/[facility] Co de Phone Number [facility] [address] [facility]. [address] * (ABNORMAL) POC hematocrit (04/18/2025 12:56 PM EDT) Pathologist [facility] POC Hematocrit 29.0(L) 35 - 45 % 04/18/2025 1:37 PM EDT [facility] Blood, Arterial 04/18/2025 1 2:56 PM EDT 04/18/2025 1:37 PM EDT us Ludin Jose MD POINT OF CARE TEST ORDERABLES Fi nal Result Performing Organization Address City/State/[facility] Co de Phone Number [facility] [address] [facility]. [address] * POC Lactate (04/18/2025 12:56 PM EDT) POC Lactate 1.89 0.50 - 2.20 mmol/L 04/18/2025 1:37 PM EDT [facility] Blood, Arterial 04/18/2025 1 2:56 PM EDT 04/18/2025 1:37 PM EDT us Ludin Jose MD POINT OF CARE TEST ORDERABLES Fi nal Result Performing Organization Address [facility] Co de Phone Number [address] * (ABNORMAL) POC Glucose (04/18/2025 12:56 PM EDT) POC Glucose, Arterial 102(H) 70 - 100 mg/dL 04/18/2025 1:37 PM EDT [facility] Blood, Arterial 04/18/2025 1 2:56 PM EDT 04/18/2025 1:37 PM EDT us Ludin Jose MD POINT OF CARE TEST ORDERABLES Fi nal Result Performing Organization Address [facility] Co de Phone Number [facility] [address] [place] [address]. [address] * POC Ionized Calcium (04/18/2025 12:56 PM EDT) POC Ionized Calcium 4.90 4.50 - 5.30 mg/dL 04/18/2025 1:37 PM EDT [facility] Blood, Arterial 04/18/2025 1 2:56 PM EDT 04/18/2025 1:37 PM EDT us Ludin Jose MD POINT OF CARE TEST ORDERABLES Fi nal Result Performing Organization Address [facility] Co de Phone Number [facility] [address] [place] [address]. [address] * POC Potassium (04/18/2025 12:56 PM EDT) POC Potassium 4.4 3.5 - 5.3 mmol/L 04/18/2025 1:37 PM EDT [facility] Blood, Arterial 04/18/2025 1 2:56 PM EDT 04/18/2025 1:37 PM EDT us Ludin Jose MD POINT OF CARE TEST ORDERABLES Fi nal Result [facility] [address] * POC Sodium (04/18/2025 12:56 PM EDT) POC Sodium 139 136 - 146 mmol/L 04/18/2025 1:37 PM EDT [facility] Blood, Arterial 04/18/2025 1 2:56 PM EDT 04/18/2025 1:37 PM EDT us Ludin Jose MD POINT OF CARE TEST ORDERABLES Fi nal Result Performing Organization Address [facility] Co de Phone Number [facility] [address] * (ABNORMAL) POC TCO2 (04/18/2025 12:56 PM EDT) POC TCO2, Arterial 21(L) 23 - 27 mmol/L 04/18/2025 1:37 PM EDT [facility] Blood, Arterial 04/18/2025 1 2:56 PM EDT 04/18/2025 1:37 PM EDT us Ludin Jose MD POINT OF CARE TEST ORDERABLES Fi nal Result Performing Organization Address [facility] Co de Phone Number [facility] [address] * (ABNORMAL) POC O2 SAT (04/18/2025 12:56 PM EDT) POC O2 Saturation, Arterial 100(H) 95 - 98 % 04/18/2025 1:37 PM EDT [facility] Blood, Arterial 04/18/2025 1 2:56 PM EDT 04/18/2025 1:37 PM EDT us Ludin Jose MD POINT OF CARE TEST ORDERABLES Fi nal Result Performing Organization Address City/[facility]/ZIP Co de Phone Number [facility] [address] * (ABNORMAL) POC Base Excess (04/18/2025 12:56 PM EDT) POC Base Excess, Arterial -5(L) -2 - 3 mmol/L 04/18/2025 1:37 PM EDT [facility] Blood, Arterial 04/18/2025 1 2:56 PM EDT 04/18/2025 1:37 PM EDT Ludin Jose MD POINT OF CARE TEST ORDERABLES Fi nal Result [facility] [address] [facility]. [address] * (ABNORMAL) POC HCO3 (04/18/2025 12:56 PM EDT) POC HCO3, Arterial 20(L) 22 - 26 mmol/L 04/18/2025 1:37 PM EDT [facility] Blood, Arterial 04/18/2025 1 2:56 PM EDT 04/18/2025 1:37 PM EDT Ludin Jose MD POINT OF CARE TEST ORDERABLES Fi nal Result [facility] [address] [facility]. [address] * (ABNORMAL) POC PO2 (04/18/2025 12:56 PM EDT) POC pO2, Arterial 195(H) 80 - 100 mm Hg 04/18/2025 1:37 PM EDT [facility] Blood, Arterial 04/18/2025 1 2:56 PM EDT 04/18/2025 1:37 PM EDT Ludin Jose MD POINT OF CARE TEST ORDERABLES Fi nal Result [facility] [address] [facility]. [address] * POC PCO2 (04/18/2025 12:56 PM EDT) POC pCO2, Arterial 36 35 - 45 mm Hg 04/18/2025 1:37 PM EDT [facility] Blood, Arterial 04/18/2025 1 2:56 PM EDT 04/18/2025 1:37 PM EDT us Ludin Jose MD POINT OF CARE TEST ORDERABLES Fi nal Result Performing Organization Address City/[facility] Co de Phone Number [facility] [address] [facility]. [address] * POC pH (04/18/2025 12:56 PM EDT) POC pH, Arterial 7.36 7.35 - 7.45 04/18/2025 1:37 PM EDT [facility] Blood, Arterial 04/18/2025 1 2:56 PM EDT 04/18/2025 1:37 PM EDT us Ludin Jose MD POINT OF CARE TEST ORDERABLES Fi nal Result Performing Organization Address [facility] de Phone Number [facility] [address] [place] [address]. [address] * (ABNORMAL) POC INR (04/18/2025 12:51 PM EDT) Prothrombin Time INR, POC 6.1(HH) 0.8 - 1.4 04/19/2025 6:33 AM EDT [facility] Comment: Test results may vary using different testing platforms. Serial result monitoring should be performed using the same methodology. RECOMMENDED THERAPEUTIC RANGES USING INR : Stable oral anticoagulant therapy: 2.0 - 3.0 Mechanical prosthetic heart valve: 2.5 - 3.5 Recurrent acute myocardial infarction: 2.5 - 3.5 Blood 04/18/2025 12:5 1 PM EDT 04/19/2025 6:32 AM EDT us Ludin Jose MD POINT OF CARE TEST ORDERABLES Fi nal Result Performing Organization Address City/[facility] Co de Phone Number [facility] [address] * Transfuse RBC Transfusion Rate: Per dept routine (04/18/2025 12:27 PM EDT) Result Ashutosh Jose MD NURSING TREATMENT ORDERABLES - B LOOD ADMIN Final Result * Transfuse RBC Transfusion Rate: Per dept routine (04/18/2025 12:19 PM EDT) Result Ashutosh Jose MD NURSING TREATMENT ORDERABLES - B LOOD ADMIN Final Result * POC Sample Type (04/18/2025 12:11 PM EDT) POC Sample Type Arterial 04/18/2025 12:54 PM EDT [facility] Blood, Arterial 04/18/2025 1 2:11 PM EDT 04/18/2025 12:54 PM EDT us Ludin Jose MD POINT OF CARE TEST ORDERABLES Fi nal Result Performing Organization Address City/[facility]/ZIP Co de Phone Number [facility] [address] [facility]. [address] * POC Anion Gap (04/18/2025 12:11 PM EDT) Pathologist [facility] POC Anion Gap, Arterial 9 3 - 16 mmol/L 04/18/2025 12:54 PM EDT [facility] Blood, Arterial 04/18/2025 1 2:11 PM EDT 04/18/2025 12:54 PM EDT Result Ashutosh Jose MD POINT OF CARE TEST ORDERABLES Fi nal Result [facility] [address] [facility]. [address] * POC Chloride (04/18/2025 12:11 PM EDT) POC Chloride 107 98 - 110 mmol/L 04/18/2025 12:54 PM EDT [facility] Blood, Arterial 04/18/2025 1 2:11 PM EDT 04/18/2025 12:54 PM EDT us Ludin Jose MD POINT OF CARE TEST ORDERABLES Fi nal Result Performing Organization Address City/[facility]/ZIP Co de Phone Number [facility] [address] * (ABNORMAL) POC Hemoglobin (04/18/2025 12:11 PM EDT) POC Hemoglobin 10.1(L) 12.0 - 16.0 g/dL 04/18/2025 12:54 PM EDT [facility] Blood, Arterial 04/18/2025 1 2:11 PM EDT 04/18/2025 12:54 PM EDT us Ludin Jose MD POINT OF CARE TEST ORDERABLES Fi nal Result Performing Organization Address [facility] Co de Phone Number [facility] [address] [facility]. [address] * (ABNORMAL) POC hematocrit (04/18/2025 12:11 PM EDT) POC Hematocrit 30.0(L) 35 - 45 % 04/18/2025 12:54 PM EDT [facility] Blood, Arterial 04/18/2025 1 2:11 PM EDT 04/18/2025 12:54 PM EDT us Ludin Jose MD POINT OF CARE TEST ORDERABLES Fi nal Result Performing Organization Address City/[facility]/ZIP Co de Phone Number [facility] [address] [facility]. [address] * POC Lactate (04/18/2025 12:11 PM EDT) POC Lactate 1.24 0.50 - 2.20 mmol/L 04/18/2025 12:54 PM EDT [facility] Blood, Arterial 04/18/2025 1 2:11 PM EDT 04/18/2025 12:54 PM EDT us Ludin Jose MD POINT OF CARE TEST ORDERABLES Fi nal Result Performing Organization Address City/[facility]/ZIP Co de Phone Number [address] * (ABNORMAL) POC Glucose (04/18/2025 12:11 PM EDT) POC Glucose, Arterial 126(H) 70 - 100 mg/dL 04/18/2025 12:54 PM EDT [facility] Blood, Arterial 04/18/2025 1 2:11 PM EDT 04/18/2025 12:54 PM EDT us Ludin Jose MD POINT OF CARE TEST ORDERABLES Fi nal Result Performing Organization Address [facility] Co de Phone Number [address] * POC Ionized Calcium (04/18/2025 12:11 PM EDT) POC Ionized Calcium 4.70 4.50 - 5.30 mg/dL 04/18/2025 12:54 PM EDT [facility] Blood, Arterial 04/18/2025 1 2:11 PM EDT 04/18/2025 12:54 PM EDT us Ludin Jose MD POINT OF CARE TEST ORDERABLES Fi nal Result Performing Organization Address City/[facility] Co de Phone Number [address] * POC Potassium (04/18/2025 12:11 PM EDT) POC Potassium 4.2 3.5 - 5.3 mmol/L 04/18/2025 12:54 PM EDT [facility] Blood, Arterial 04/18/2025 1 2:11 PM EDT 04/18/2025 12:54 PM EDT us Ludin Jose MD POINT OF CARE TEST ORDERABLES Fi nal Result Performing Organization Address City/[facility]/ZIP Co de Phone Number [facility] [address] * POC Sodium (04/18/2025 12:11 PM EDT) POC Sodium 137 136 - 146 mmol/L 04/18/2025 12:54 PM EDT [facility] Blood, Arterial 04/18/2025 1 2:11 PM EDT 04/18/2025 12:54 PM EDT Ludin Jose MD POINT OF CARE TEST ORDERABLES Fi nal Result Performing Organization Address [facility] Co de Phone Number [facility] [address] * (ABNORMAL) POC TCO2 (04/18/2025 12:11 PM EDT) POC TCO2, Arterial 22(L) 23 - 27 mmol/L 04/18/2025 12:54 PM EDT [facility] Blood, Arterial 04/18/2025 1 2:11 PM EDT 04/18/2025 12:54 PM EDT us Ludin Jose MD POINT OF CARE TEST ORDERABLES Fi nal Result Performing Organization Address [facility] Co de Phone Number [facility] [address] * (ABNORMAL) POC O2 SAT (04/18/2025 12:11 PM EDT) POC O2 Saturation, Arterial 99(H) 95 - 98 % 04/18/2025 12:54 PM EDT [facility] Blood, Arterial 04/18/2025 1 2:11 PM EDT 04/18/2025 12:54 PM EDT us Ludin Jose MD POINT OF CARE TEST ORDERABLES Fi nal Result Performing Organization Address City/[facility]/ZIP Co de Phone Number [facility] [address] [facility] [address] * (ABNORMAL) POC Base Excess (04/18/2025 12:11 PM EDT) POC Base Excess, Arterial -5(L) -2 - 3 mmol/L 04/18/2025 12:54 PM EDT [facility] Blood, Arterial 04/18/2025 1 2:11 PM EDT 04/18/2025 12:54 PM EDT Ludin Jose MD POINT OF CARE TEST ORDERABLES Fi nal Result [facility] [address] [facility]. [address] * (ABNORMAL) POC HCO3 (04/18/2025 12:11 PM EDT) POC HCO3, Arterial 21(L) 22 - 26 mmol/L 04/18/2025 12:54 PM EDT [facility] Blood, Arterial 04/18/2025 1 2:11 PM EDT 04/18/2025 12:54 PM EDT Ludin Jose MD POINT OF CARE TEST ORDERABLES Fi nal Result [facility] [address] [facility]. [address] * (ABNORMAL) POC PO2 (04/18/2025 12:11 PM EDT) POC pO2, Arterial 160(H) 80 - 100 mm Hg 04/18/2025 12:54 PM EDT [facility] Blood, Arterial 04/18/2025 1 2:11 PM EDT 04/18/2025 12:54 PM EDT Ludin Jose MD POINT OF CARE TEST ORDERABLES Fi nal Result [facility] [address] [facility]. [address] * POC PCO2 (04/18/2025 12:11 PM EDT) POC pCO2, Arterial 38 35 - 45 mm Hg 04/18/2025 12:54 PM EDT [facility] Blood, Arterial 04/18/2025 1 2:11 PM EDT 04/18/2025 12:54 PM EDT Ludin Jose MD POINT OF CARE TEST ORDERABLES Fi nal Result Performing Organization Address [facility] de Phone Number [facility] [address] [facility]. [address] * POC pH (04/18/2025 12:11 PM EDT) POC pH, Arterial 7.35 7.35 - 7.45 04/18/2025 12:54 PM EDT [facility] Blood, Arterial 04/18/2025 1 2:11 PM EDT 04/18/2025 12:54 PM EDT us Ludin Jose MD POINT OF CARE TEST ORDERABLES Fi nal Result Performing Organization Address [facility] de Phone Number [facility] [address] [place] [address]. [address] * POC INR (04/18/2025 12:05 PM EDT) Prothrombin Time INR, POC 1.3 0.8 - 1.4 04/19/2025 6:33 AM EDT [facility] Comment: Test results may vary using different testing platforms. Serial result monitoring should be performed using the same methodology. RECOMMENDED THERAPEUTIC RANGES USING INR : Stable oral anticoagulant therapy: 2.0 - 3.0 Mechanical prosthetic heart valve: 2.5 - 3.5 Recurrent acute myocardial infarction: 2.5 - 3.5 Blood 04/18/2025 12:0 5 PM EDT 04/19/2025 6:32 AM EDT us Ludin Jose MD POINT OF CARE TEST ORDERABLES Fi nal Result [facility] [address] * POC Sample Type (04/18/2025 11:16 AM EDT) POC Sample Type Arterial 04/18/2025 12:09 PM EDT [facility] Blood, Arterial 04/18/2025 1 1:16 AM EDT 04/18/2025 12:09 PM EDT us Ludin Jose MD POINT OF CARE TEST ORDERABLES Fi nal Result [facility] [address] * POC Anion Gap (04/18/2025 11:16 AM EDT) POC Anion Gap, Arterial 6 3 - 16 mmol/L 04/18/2025 12:09 PM EDT [facility] Blood, Arterial 04/18/2025 1 1:16 AM EDT 04/18/2025 12:09 PM EDT us Ludin Jose MD POINT OF CARE TEST ORDERABLES Fi nal Result Performing Organization Address [facility]/ZIP Co de Phone Number [facility] [address] [facility]. [address] * POC Chloride (04/18/2025 11:16 AM EDT) POC Chloride 108 98 - 110 mmol/L 04/18/2025 12:09 PM EDT [facility] Blood, Arterial 04/18/2025 1 1:16 AM EDT 04/18/2025 12:09 PM EDT us Ludin Jose MD POINT OF CARE TEST ORDERABLES Fi nal Result [facility] [address] [facility]. [address] * (ABNORMAL) POC Hemoglobin (04/18/2025 11:16 AM EDT) Pathologist [facility] POC Hemoglobin 10.7(L) 12.0 - 16.0 g/dL 04/18/2025 12:09 PM EDT [facility] Blood, Arterial 04/18/2025 1 1:16 AM EDT 04/18/2025 12:09 PM EDT us Ludin Jose MD POINT OF CARE TEST ORDERABLES Fi nal Result [facility] [address] [place] [address]. [address] * (ABNORMAL) POC hematocrit (04/18/2025 11:16 AM EDT) [facility] POC Hematocrit 31.0(L) 35 - 45 % 04/18/2025 12:09 PM EDT [facility] Blood, Arterial 04/18/2025 1 1:16 AM EDT 04/18/2025 12:09 PM EDT us Ludin Jose MD POINT OF CARE TEST ORDERABLES Fi nal Result Performing Organization Address [facility] Co de Phone Number [facility] [address] [place] [address]. [address] * POC Lactate (04/18/2025 11:16 AM EDT) [facility] POC Lactate 1.10 0.50 - 2.20 mmol/L 04/18/2025 12:09 PM EDT [facility] Blood, Arterial 04/18/2025 1 1:16 AM EDT 04/18/2025 12:09 PM EDT us Ludin Jose MD POINT OF CARE TEST ORDERABLES Fi nal Result Performing Organization Address City/[facility] Co de Phone Number [facility] [address] [place] [address]. [address] * (ABNORMAL) POC Glucose (04/18/2025 11:16 AM EDT) [facility] POC Glucose, Arterial 116(H) 70 - 100 mg/dL 04/18/2025 12:09 PM EDT [facility] Blood, Arterial 04/18/2025 1 1:16 AM EDT 04/18/2025 12:09 PM EDT us Ludin Jose MD POINT OF CARE TEST ORDERABLES Fi nal Result [facility] [address] [place] [address]. [address] * POC Ionized Calcium (04/18/2025 11:16 AM EDT) POC Ionized Calcium 5.20 4.50 - 5.30 mg/dL 04/18/2025 12:09 PM EDT [facility] Blood, Arterial 04/18/2025 1 1:16 AM EDT 04/18/2025 12:09 PM EDT us Ludin Jose MD POINT OF CARE TEST ORDERABLES Fi nal Result Performing Organization Address City/[facility]/ZIP Co de Phone Number [facility] [address] [facility]. [address] * POC Potassium (04/18/2025 11:16 AM EDT) Pathologist [facility] POC Potassium 4.1 3.5 - 5.3 mmol/L 04/18/2025 12:09 PM EDT [facility] Blood, Arterial 04/18/2025 1 1:16 AM EDT 04/18/2025 12:09 PM EDT us Ludin Jose MD POINT OF CARE TEST ORDERABLES Fi nal Result [facility] [address] [place] [address]. [address] * POC Sodium (04/18/2025 11:16 AM EDT) POC Sodium 137 136 - 146 mmol/L 04/18/2025 12:09 PM EDT [facility] Blood, Arterial 04/18/2025 1 1:16 AM EDT 04/18/2025 12:09 PM EDT us Ludin Jose MD POINT OF CARE TEST ORDERABLES Fi nal Result [facility] [address] [facility]. [address] * POC TCO2 (04/18/2025 11:16 AM EDT) POC TCO2, Arterial 24 23 - 27 mmol/L 04/18/2025 12:09 PM EDT [facility] Blood, Arterial 04/18/2025 1 1:16 AM EDT 04/18/2025 12:09 PM EDT us Ludin Jose MD POINT OF CARE TEST ORDERABLES Fi nal Result Performing Organization Address City/[facility] Co de Phone Number [facility] [address] [facility]. [address] * (ABNORMAL) POC O2 SAT (04/18/2025 11:16 AM EDT) POC O2 Saturation, Arterial 99(H) 95 - 98 % 04/18/2025 12:09 PM EDT [facility] Blood, Arterial 04/18/2025 1 1:16 AM EDT 04/18/2025 12:09 PM EDT us Ludin Jose MD POINT OF CARE TEST ORDERABLES Fi nal Result [facility] [address] [facility]. [address] * POC Base Excess (04/18/2025 11:16 AM EDT) POC Base Excess, Arterial -2 -2 - 3 mmol/L 04/18/2025 12:09 PM EDT [facility] Blood, Arterial 04/18/2025 1 1:16 AM EDT 04/18/2025 12:09 PM EDT us Ludin Jose MD POINT OF CARE TEST ORDERABLES Fi nal Result Performing Organization Address [facility] Co de Phone Number [facility] [address] [place], [place] [address] * POC HCO3 (04/18/2025 11:16 AM EDT) POC HCO3, Arterial 23 22 - 26 mmol/L 04/18/2025 12:09 PM EDT [facility] Blood, Arterial 04/18/2025 1 1:16 AM EDT 04/18/2025 12:09 PM EDT us Ludin Jose MD POINT OF CARE TEST ORDERABLES Fi nal Result Performing Organization Address [facility] Co de Phone Number [facility] [address] [place] [address]. [address] * (ABNORMAL) POC PO2 (04/18/2025 11:16 AM EDT) POC pO2, Arterial 136(H) 80 - 100 mm Hg 04/18/2025 12:09 PM EDT [facility] Blood, Arterial 04/18/2025 1 1:16 AM EDT 04/18/2025 12:09 PM EDT us Ludin Jose MD POINT OF CARE TEST ORDERABLES Fi nal Result Performing Organization Address [facility] Co de Phone Number [facility] [address] [place] [address]. [address] * POC PCO2 (04/18/2025 11:16 AM EDT) POC pCO2, Arterial 38 35 - 45 mm Hg 04/18/2025 12:09 PM EDT [facility] Blood, Arterial 04/18/2025 1 1:16 AM EDT 04/18/2025 12:09 PM EDT us Ludin Jose MD POINT OF CARE TEST ORDERABLES Fi nal Result [facility] [address] * POC pH (04/18/2025 11:16 AM EDT) POC pH, Arterial 7.38 7.35 - 7.45 04/18/2025 12:09 PM EDT [facility] Blood, Arterial 04/18/2025 1 1:16 AM EDT 04/18/2025 12:09 PM EDT us Ludin Jose MD POINT OF CARE TEST ORDERABLES Fi nal Result Performing Organization Address City/[facility]/ZIP Co de Phone Number [facility] [address] * POC Sample Type (04/18/2025 11:13 AM EDT) POC Sample Type Arterial 04/18/2025 11:46 AM EDT [facility] Blood, Arterial 04/18/2025 1 1:13 AM EDT 04/18/2025 11:46 AM EDT us Ludin Jose MD POINT OF CARE TEST ORDERABLES Fi nal Result Performing Organization Address [facility] Co de Phone Number [facility] [address] * POC Anion Gap (04/18/2025 11:13 AM EDT) POC Anion Gap, Arterial cnc 3 - 16 mmol/L 04/18/2025 11:46 AM EDT [facility] Blood, Arterial 04/18/2025 1 1:13 AM EDT 04/18/2025 11:46 AM EDT us Ludin Jose MD POINT OF CARE TEST ORDERABLES Fi nal Result [facility] [address] * POC Chloride (04/18/2025 11:13 AM EDT) POC Chloride cnc 98 - 110 mmol/L 04/18/2025 11:46 AM EDT [facility] Blood, Arterial 04/18/2025 1 1:13 AM EDT 04/18/2025 11:46 AM EDT us Ludin Jose MD POINT OF CARE TEST ORDERABLES Fi nal Result Performing Organization Address City/[facility] Co de Phone Number [facility] [address] [place] [address]. [address] * POC Hemoglobin (04/18/2025 11:13 AM EDT) [facility] POC Hemoglobin cnc 12.0 - 16.0 g/dL 04/18/2025 11:46 AM EDT [facility] Blood, Arterial 04/18/2025 1 1:13 AM EDT 04/18/2025 11:46 AM EDT us Ludin Jose MD POINT OF CARE TEST ORDERABLES Fi nal Result Performing Organization Address [facility] de Phone Number [facility] [address] [place] [address]. [address] * POC hematocrit (04/18/2025 11:13 AM EDT) [facility] POC Hematocrit Failed iQC 35 - 45 % 04/18/2025 11:46 AM EDT [facility] Blood, Arterial 04/18/2025 1 1:13 AM EDT 04/18/2025 11:46 AM EDT us Ludin Jose MD POINT OF CARE TEST ORDERABLES Fi nal Result Performing Organization Address [facility] de Phone Number [facility] [address] [place] [address]. [address] * POC Lactate (04/18/2025 11:13 AM EDT) Pathologist [facility] POC Lactate 1.13 0.50 - 2.20 mmol/L 04/18/2025 11:46 AM EDT [facility] Blood, Arterial 04/18/2025 1 1:13 AM EDT 04/18/2025 11:46 AM EDT us Ludin Jose MD POINT OF CARE TEST ORDERABLES Fi nal Result Performing Organization Address City/[facility] Co de Phone Number [facility] [address] [facility]. [address] * (ABNORMAL) POC Glucose (04/18/2025 11:13 AM EDT) POC Glucose, Arterial 123(H) 70 - 100 mg/dL 04/18/2025 11:46 AM EDT [facility] Blood, Arterial 04/18/2025 1 1:13 AM EDT 04/18/2025 11:46 AM EDT us Ludin Jose MD POINT OF CARE TEST ORDERABLES Fi nal Result Performing Organization Address [facility] Co de Phone Number [facility] [address] [facility]. [address] * POC Ionized Calcium (04/18/2025 11:13 AM EDT) Pathologist [facility] POC Ionized Calcium 5.20 4.50 - 5.30 mg/dL 04/18/2025 11:46 AM EDT [facility] Blood, Arterial 04/18/2025 1 1:13 AM EDT 04/18/2025 11:46 AM EDT us Ludin Jose MD POINT OF CARE TEST ORDERABLES Fi nal Result Performing Organization Address City/[facility] Co de Phone Number [facility] [address] [facility]. [address] * POC Potassium (04/18/2025 11:13 AM EDT) Pathologist [facility] POC Potassium 4.1 3.5 - 5.3 mmol/L 04/18/2025 11:46 AM EDT [facility] Blood, Arterial 04/18/2025 1 1:13 AM EDT 04/18/2025 11:46 AM EDT us Ludin Jose MD POINT OF CARE TEST ORDERABLES Fi nal Result Performing Organization Address City/[facility] Co de Phone Number [facility] [address] [facility]. [address] * POC Sodium (04/18/2025 11:13 AM EDT) POC Sodium 138 136 - 146 mmol/L 04/18/2025 11:46 AM EDT [facility] Blood, Arterial 04/18/2025 1 1:13 AM EDT 04/18/2025 11:46 AM EDT us Ludin Jose MD POINT OF CARE TEST ORDERABLES Fi nal Result Performing Organization Address [facility] Co de Phone Number [facility] [address] [facility]. [address] * POC TCO2 (04/18/2025 11:13 AM EDT) POC TCO2, Arterial 24 23 - 27 mmol/L 04/18/2025 11:46 AM EDT [facility] Blood, Arterial 04/18/2025 1 1:13 AM EDT 04/18/2025 11:46 AM EDT us Ludin Jose MD POINT OF CARE TEST ORDERABLES Fi nal Result Performing Organization Address City/[facility] Co de Phone Number [facility] [address] [facility]. [address] * (ABNORMAL) POC O2 SAT (04/18/2025 11:13 AM EDT) POC O2 Saturation, Arterial 99(H) 95 - 98 % 04/18/2025 11:46 AM EDT [facility] Blood, Arterial 04/18/2025 1 1:13 AM EDT 04/18/2025 11:46 AM EDT us Ludin Jose MD POINT OF CARE TEST ORDERABLES Fi nal Result Performing Organization Address City/[facility] Co de Phone Number [facility] [address] [facility]. [address] * POC Base Excess (04/18/2025 11:13 AM EDT) POC Base Excess, Arterial -2 -2 - 3 mmol/L 04/18/2025 11:46 AM EDT [facility] Blood, Arterial 04/18/2025 1 1:13 AM EDT 04/18/2025 11:46 AM EDT us Ludin Jose MD POINT OF CARE TEST ORDERABLES Fi nal Result Performing Organization Address [facility] Co de Phone Number [facility] [address] [facility]. [address] * POC HCO3 (04/18/2025 11:13 AM EDT) POC HCO3, Arterial 23 22 - 26 mmol/L 04/18/2025 11:46 AM EDT [facility] Blood, Arterial 04/18/2025 1 1:13 AM EDT 04/18/2025 11:46 AM EDT us Ludin Jose MD POINT OF CARE TEST ORDERABLES Fi nal Result Performing Organization Address [facility] Co de Phone Number [facility] [address] [place] [address]. [address] * (ABNORMAL) POC PO2 (04/18/2025 11:13 AM EDT) POC pO2, Arterial 133(H) 80 - 100 mm Hg 04/18/2025 11:46 AM EDT [facility] Blood, Arterial 04/18/2025 1 1:13 AM EDT 04/18/2025 11:46 AM EDT us Ludin Jose MD POINT OF CARE TEST ORDERABLES Fi nal Result Performing Organization Address City/[facility]/ZIP Co de Phone Number [facility] [address] [facility]. [address] * POC PCO2 (04/18/2025 11:13 AM EDT) POC pCO2, Arterial 38 35 - 45 mm Hg 04/18/2025 11:46 AM EDT [facility] Blood, Arterial 04/18/2025 1 1:13 AM EDT 04/18/2025 11:46 AM EDT us Ludin Jose MD POINT OF CARE TEST ORDERABLES Fi nal Result Performing Organization Address [facility]/ZIP Co de Phone Number [facility] [address] [facility]. [address] * POC pH (04/18/2025 11:13 AM EDT) POC pH, Arterial 7.38 7.35 - 7.45 04/18/2025 11:46 AM EDT [facility] Blood, Arterial 04/18/2025 1 1:13 AM EDT 04/18/2025 11:46 AM EDT us Ludin Jose MD POINT OF CARE TEST ORDERABLES Fi nal Result Performing Organization Address [facility] Co de Phone Number [facility] [address] [facility]. [address] * POC INR (04/18/2025 11:07 AM EDT) Prothrombin Time INR, POC 1.3 0.8 - 1.4 04/19/2025 6:33 AM EDT [facility] Comment: Test results may vary using different testing platforms. Serial result monitoring should be performed using the same methodology. RECOMMENDED THERAPEUTIC RANGES USING INR : Stable oral anticoagulant therapy: 2.0 - 3.0 Mechanical prosthetic heart valve: 2.5 - 3.5 Recurrent acute myocardial infarction: 2.5 - 3.5 Blood 04/18/2025 11:0 7 AM EDT 04/19/2025 6:32 AM EDT us Ludin Jose MD POINT OF CARE TEST ORDERABLES Fi nal Result [facility] [address] * POC Sample Type (04/18/2025 10:17 AM EDT) POC Sample Type Arterial 04/18/2025 11:10 AM EDT [facility] Blood, Arterial 04/18/2025 1 0:17 AM EDT 04/18/2025 11:10 AM EDT us Ludin Jose MD POINT OF CARE TEST ORDERABLES Fi nal Result Performing Organization Address City/[facility] Co de Phone Number [facility] [address] * POC Anion Gap (04/18/2025 10:17 AM EDT) POC Anion Gap, Arterial 10 3 - 16 mmol/L 04/18/2025 11:10 AM EDT [facility] Blood, Arterial 04/18/2025 1 0:17 AM EDT 04/18/2025 11:10 AM EDT us Ludin Jose MD POINT OF CARE TEST ORDERABLES Fi nal Result Performing Organization Address City/[facility]/ZIP Co de Phone Number [facility] [address] * POC Chloride (04/18/2025 10:17 AM EDT) POC Chloride 106 98 - 110 mmol/L 04/18/2025 11:10 AM EDT [facility] Blood, Arterial 04/18/2025 1 0:17 AM EDT 04/18/2025 11:10 AM EDT us Ludin Jose MD POINT OF CARE TEST ORDERABLES Fi nal Result [facility] [address] * (ABNORMAL) POC Hemoglobin (04/18/2025 10:17 AM EDT) Pathologist [facility] POC Hemoglobin 9.8(L) 12.0 - 16.0 g/dL 04/18/2025 11:10 AM EDT [facility] Blood, Arterial 04/18/2025 1 0:17 AM EDT 04/18/2025 11:10 AM EDT us Ludin Jose MD POINT OF CARE TEST ORDERABLES Fi nal Result [facility] [address] [facility]. [address] * (ABNORMAL) POC hematocrit (04/18/2025 10:17 AM EDT) [facility] POC Hematocrit 29.0(L) 35 - 45 % 04/18/2025 11:10 AM EDT [facility] Blood, Arterial 04/18/2025 1 0:17 AM EDT 04/18/2025 11:10 AM EDT us Ludin Jose MD POINT OF CARE TEST ORDERABLES Fi nal Result Performing Organization Address City/[facility]/ZIP Co de Phone Number [facility] [address] * POC Lactate (04/18/2025 10:17 AM EDT) [facility] POC Lactate 1.06 0.50 - 2.20 mmol/L 04/18/2025 11:10 AM EDT [facility] Blood, Arterial 04/18/2025 1 0:17 AM EDT 04/18/2025 11:10 AM EDT us Ludin oJse MD POINT OF CARE TEST ORDERABLES Fi nal Result [facility] [address] [facility]. [address] * (ABNORMAL) POC Glucose (04/18/2025 10:17 AM EDT) POC Glucose, Arterial 109(H) 70 - 100 mg/dL 04/18/2025 11:10 AM EDT [facility] Blood, Arterial 04/18/2025 1 0:17 AM EDT 04/18/2025 11:10 AM EDT us Ludin Jose MD POINT OF CARE TEST ORDERABLES Fi nal Result Performing Organization Address City/[facility] Co de Phone Number [facility] [address] [place] [address]. [address] * (ABNORMAL) POC Ionized Calcium (04/18/2025 10:17 AM EDT) [facility] POC Ionized Calcium 5.40(H) 4.50 - 5.30 mg/dL 04/18/2025 11:10 AM EDT [facility] Blood, Arterial 04/18/2025 1 0:17 AM EDT 04/18/2025 11:10 AM EDT us Ludin Jose MD POINT OF CARE TEST ORDERABLES Fi nal Result Performing Organization Address [facility] Co de Phone Number [facility] [address] [place] [address]. [address] * POC Potassium (04/18/2025 10:17 AM EDT) [facility] POC Potassium 3.8 3.5 - 5.3 mmol/L 04/18/2025 11:10 AM EDT [facility] Blood, Arterial 04/18/2025 1 0:17 AM EDT 04/18/2025 11:10 AM EDT us Ludin Jose MD POINT OF CARE TEST ORDERABLES Fi nal Result Performing Organization Address City/[facility] Co de Phone Number [facility] [address] [facility]. [address] * POC Sodium (04/18/2025 10:17 AM EDT) POC Sodium 139 136 - 146 mmol/L 04/18/2025 11:10 AM EDT [facility] Blood, Arterial 04/18/2025 1 0:17 AM EDT 04/18/2025 11:10 AM EDT us Ludin Jose MD POINT OF CARE TEST ORDERABLES Fi nal Result Performing Organization Address City/[facility]/ZIP Co de Phone Number [facility] [address] [facility]. [address] * POC TCO2 (04/18/2025 10:17 AM EDT) POC TCO2, Arterial 24 23 - 27 mmol/L 04/18/2025 11:10 AM EDT [facility] Blood, Arterial 04/18/2025 1 0:17 AM EDT 04/18/2025 11:10 AM EDT us Ludin Jose MD POINT OF CARE TEST ORDERABLES Fi nal Result Performing Organization Address [facility] Co de Phone Number [facility] [address] [facility]. [address] * (ABNORMAL) POC O2 SAT (04/18/2025 10:17 AM EDT) POC O2 Saturation, Arterial 99(H) 95 - 98 % 04/18/2025 11:10 AM EDT [facility] Blood, Arterial 04/18/2025 1 0:17 AM EDT 04/18/2025 11:10 AM EDT us Ludin Jose MD POINT OF CARE TEST ORDERABLES Fi nal Result Performing Organization Address City/[facility] Co de Phone Number [facility] [address] [facility]. [address] * POC Base Excess (04/18/2025 10:17 AM EDT) POC Base Excess, Arterial -2 -2 - 3 mmol/L 04/18/2025 11:10 AM EDT [facility] Blood, Arterial 04/18/2025 1 0:17 AM EDT 04/18/2025 11:10 AM EDT us Ludin Jose MD POINT OF CARE TEST ORDERABLES Fi nal Result Performing Organization Address City/[facility] Co de Phone Number [facility] [address] [place] [address]. [address] * POC HCO3 (04/18/2025 10:17 AM EDT) POC HCO3, Arterial 23 22 - 26 mmol/L 04/18/2025 11:10 AM EDT [facility] Blood, Arterial 04/18/2025 1 0:17 AM EDT 04/18/2025 11:10 AM EDT us Ludin Jose MD POINT OF CARE TEST ORDERABLES Fi nal Result Performing Organization Address [facility] de Phone Number [facility] [address] [facility]. [address] * (ABNORMAL) POC PO2 (04/18/2025 10:17 AM EDT) POC pO2, Arterial 134(H) 80 - 100 mm Hg 04/18/2025 11:10 AM EDT [facility] Blood, Arterial 04/18/2025 1 0:17 AM EDT 04/18/2025 11:10 AM EDT us Ludin Jose MD POINT OF CARE TEST ORDERABLES Fi nal Result Performing Organization Address City/[facility] de Phone Number [facility] [address] [place] [address]. [address] * POC PCO2 (04/18/2025 10:17 AM EDT) POC pCO2, Arterial 38 35 - 45 mm Hg 04/18/2025 11:10 AM EDT [facility] Blood, Arterial 04/18/2025 1 0:17 AM EDT 04/18/2025 11:10 AM EDT us Ludin Jose MD POINT OF CARE TEST ORDERABLES Fi nal Result Performing Organization Address City/[facility] Co de Phone Number [facility] [address] * POC pH (04/18/2025 10:17 AM EDT) POC pH, Arterial 7.39 7.35 - 7.45 04/18/2025 11:10 AM EDT [facility] Blood, Arterial 04/18/2025 1 0:17 AM EDT 04/18/2025 11:10 AM EDT us Ludin Jose MD POINT OF CARE TEST ORDERABLES Fi nal Result Performing Organization Address [facility] de Phone Number [facility] [address] [facility]. [address] * POC INR (04/18/2025 10:12 AM EDT) Prothrombin Time INR, POC 1.3 0.8 - 1.4 04/19/2025 6:33 AM EDT [facility] Comment: Test results may vary using different testing platforms. Serial result monitoring should be performed using the same methodology. RECOMMENDED THERAPEUTIC RANGES USING INR : Stable oral anticoagulant therapy: 2.0 - 3.0 Mechanical prosthetic heart valve: 2.5 - 3.5 Recurrent acute myocardial infarction: 2.5 - 3.5 Blood 04/18/2025 10:1 2 AM EDT 04/19/2025 6:32 AM EDT us Ludin Jose MD POINT OF CARE TEST ORDERABLES Fi nal Result Performing Organization Address [facility] Co de Phone Number [facility] [address] [facility]. [address] * (ABNORMAL) POC INR (04/18/2025 9:19 AM EDT) Prothrombin Time INR, POC 1.7(H) 0.8 - 1.4 04/19/2025 6:33 AM EDT [facility] Comment: Test results may vary using different testing platforms. Serial result monitoring should be performed using the same methodology. RECOMMENDED THERAPEUTIC RANGES USING INR : Stable oral anticoagulant therapy: 2.0 - 3.0 Mechanical prosthetic heart valve: 2.5 - 3.5 Recurrent acute myocardial infarction: 2.5 - 3.5 Blood 04/18/2025 9:19 AM EDT 04/19/2025 6:32 AM EDT us Ludin Jose MD POINT OF CARE TEST ORDERABLES Fi nal Result Performing Organization Address City/[facility] Co de Phone Number [facility] [address] [facility]. [address] * POC Sample Type (04/18/2025 9:17 AM EDT) POC Sample Type Arterial 04/18/2025 9:24 AM EDT [facility] Blood, Arterial 04/18/2025 9 :17 AM EDT 04/18/2025 9:24 AM EDT us Ludin Jose MD POINT OF CARE TEST ORDERABLES Fi nal Result Performing Organization Address [facility] Co de Phone Number [facility] [address] [facility] * POC Anion Gap (04/18/2025 9:17 AM EDT) POC Anion Gap, Arterial 9 3 - 16 mmol/L 04/18/2025 9:24 AM EDT [facility] Blood, Arterial 04/18/2025 9 :17 AM EDT 04/18/2025 9:24 AM EDT us Ludin Jose MD POINT OF CARE TEST ORDERABLES Fi nal Result Performing Organization Address City/[facility] Co de Phone Number [facility] [address] [facility] * POC Chloride (04/18/2025 9:17 AM EDT) POC Chloride 104 98 - 110 mmol/L 04/18/2025 9:24 AM EDT [facility] Blood, Arterial 04/18/2025 9 :17 AM EDT 04/18/2025 9:24 AM EDT us Ludin Jose MD POINT OF CARE TEST ORDERABLES Fi nal Result Performing Organization Address City/[facility]/ZIP Co de Phone Number [facility] [address] [facility]. [address] * (ABNORMAL) POC Hemoglobin (04/18/2025 9:17 AM EDT) [facility] POC Hemoglobin 9.5(L) 12.0 - 16.0 g/dL 04/18/2025 9:24 AM EDT [facility] Blood, Arterial 04/18/2025 9 :17 AM EDT 04/18/2025 9:24 AM EDT us Ludin Jose MD POINT OF CARE TEST ORDERABLES Fi nal Result Performing Organization Address [facility] Co de Phone Number [facility] [address] [facility] * (ABNORMAL) POC hematocrit (04/18/2025 9:17 AM EDT) [facility] POC Hematocrit 28.0(L) 35 - 45 % 04/18/2025 9:24 AM EDT [facility] Blood, Arterial 04/18/2025 9 :17 AM EDT 04/18/2025 9:24 AM EDT us Ludin Jose MD POINT OF CARE TEST ORDERABLES Fi nal Result Performing Organization Address City/[facility] Co de Phone Number [facility] [address] [facility]. [address] * (ABNORMAL) POC Lactate (04/18/2025 9:17 AM EDT) [facility] POC Lactate <0.30(L) 0.50 - 2.20 mmol/L 04/18/2025 9:24 AM EDT [facility] Blood, Arterial 04/18/2025 9 :17 AM EDT 04/18/2025 9:24 AM EDT us Ludin Jose MD POINT OF CARE TEST ORDERABLES Fi nal Result Performing Organization Address City/[facility] Co de Phone Number [facility] [address] [facility] * (ABNORMAL) POC Glucose (04/18/2025 9:17 AM EDT) POC Glucose, Arterial 109(H) 70 - 100 mg/dL 04/18/2025 9:24 AM EDT [facility] Blood, Arterial 04/18/2025 9 :17 AM EDT 04/18/2025 9:24 AM EDT us Ludin Jose MD POINT OF CARE TEST ORDERABLES Fi nal Result Performing Organization Address [facility] Co de Phone Number [facility] [id number] [facility]. [address] * POC Ionized Calcium (04/18/2025 9:17 AM EDT) Pathologist [facility] POC Ionized Calcium 4.90 4.50 - 5.30 mg/dL 04/18/2025 9:24 AM EDT [facility] Blood, Arterial 04/18/2025 9 :17 AM EDT 04/18/2025 9:24 AM EDT us Ludin Jose MD POINT OF CARE TEST ORDERABLES Fi nal Result Performing Organization Address City/[facility] Co de Phone Number [facility] [address] [facility]. [address] * POC Potassium (04/18/2025 9:17 AM EDT) POC Potassium 3.6 3.5 - 5.3 mmol/L 04/18/2025 9:24 AM EDT [facility] Blood, Arterial 04/18/2025 9 :17 AM EDT 04/18/2025 9:24 AM EDT us Ludin Jose MD POINT OF CARE TEST ORDERABLES Fi nal Result Performing Organization Address City/[facility] Co de Phone Number [facility] [address] [facility]. [address] * POC Sodium (04/18/2025 9:17 AM EDT) POC Sodium 140 136 - 146 mmol/L 04/18/2025 9:24 AM EDT [facility] Blood, Arterial 04/18/2025 9 :17 AM EDT 04/18/2025 9:24 AM EDT us Ludin Jose MD POINT OF CARE TEST ORDERABLES Fi nal Result Performing Organization Address [facility] de Phone Number [facility] [address] [facility]. [address] * (ABNORMAL) POC TCO2 (04/18/2025 9:17 AM EDT) POC TCO2, Arterial 28(H) 23 - 27 mmol/L 04/18/2025 9:24 AM EDT [facility] Blood, Arterial 04/18/2025 9 :17 AM EDT 04/18/2025 9:24 AM EDT us Ludin Jose MD POINT OF CARE TEST ORDERABLES Fi nal Result Performing Organization Address [facility] Co de Phone Number [facility] [address] * (ABNORMAL) POC O2 SAT (04/18/2025 9:17 AM EDT) POC O2 Saturation, Arterial 100(H) 95 - 98 % 04/18/2025 9:24 AM EDT [facility] Blood, Arterial 04/18/2025 9 :17 AM EDT 04/18/2025 9:24 AM EDT us Ludin Jose MD POINT OF CARE TEST ORDERABLES Fi nal Result Performing Organization Address [facility] de Phone Number [facility] [address] [facility]. [address] * POC Base Excess (04/18/2025 9:17 AM EDT) POC Base Excess, Arterial 1 -2 - 3 mmol/L 04/18/2025 9:24 AM EDT [facility] Blood, Arterial 04/18/2025 9 :17 AM EDT 04/18/2025 9:24 AM EDT us Ludin Jose MD POINT OF CARE TEST ORDERABLES Fi nal Result Performing Organization Address [facility] de Phone Number [facility] [address] [facility]. [address] * (ABNORMAL) POC HCO3 (04/18/2025 9:17 AM EDT) POC HCO3, Arterial 27(H) 22 - 26 mmol/L 04/18/2025 9:24 AM EDT [facility] Blood, Arterial 04/18/2025 9 :17 AM EDT 04/18/2025 9:24 AM EDT us Ludin Jose MD POINT OF CARE TEST ORDERABLES Fi nal Result Performing Organization Address [facility] de Phone Number [facility] [address] [place] [address]. [address] * (ABNORMAL) POC PO2 (04/18/2025 9:17 AM EDT) POC pO2, Arterial 354(H) 80 - 100 mm Hg 04/18/2025 9:24 AM EDT [facility] Blood, Arterial 04/18/2025 9 :17 AM EDT 04/18/2025 9:24 AM EDT us Ludin Jose MD POINT OF CARE TEST ORDERABLES Fi nal Result Performing Organization Address City/[facility]/ZIP Co de Phone Number [facility] [address] * (ABNORMAL) POC PCO2 (04/18/2025 9:17 AM EDT) POC pCO2, Arterial 50(H) 35 - 45 mm Hg 04/18/2025 9:24 AM EDT [facility] Blood, Arterial 04/18/2025 9 :17 AM EDT 04/18/2025 9:24 AM EDT us Ludin Jose MD POINT OF CARE TEST ORDERABLES Fi nal Result Performing Organization Address [facility] Co de Phone Number [facility] [address] * (ABNORMAL) POC pH (04/18/2025 9:17 AM EDT) POC pH, Arterial 7.34(L) 7.35 - 7.45 04/18/2025 9:24 AM EDT [facility] Blood, Arterial 04/18/2025 9 :17 AM EDT 04/18/2025 9:24 AM EDT us Ludin Jose MD POINT OF CARE TEST ORDERABLES Fi nal Result Performing Organization Address [facility] Co de Phone Number [facility] [address] * POC HCG Qualitative, Urine (04/18/2025 6:16 AM EDT) hCG Qualitative -Clinitek Negative Negative 04/18/2025 6:22 AM EDT [facility] Urine 04/18/2025 6:16 AM EDT 04/18/2025 6:22 AM EDT us Ludin Jose MD URINE ORDERABLES Final Result Performing Organization Address [facility] Co de Phone Number [facility] [address] * (ABNORMAL) Venous Blood Gas, Line/Syringe (04/18/2025 6:03 AM EDT) PH-Line Draw 7.42 7.32 - 7.42 04/18/2025 6:40 AM EDT [facility] PCO2-Line Draw 39(L) 41 - 51 mm Hg 04/18/2025 6:40 AM EDT [facility] PO2-Line Draw 37 25 - 40 mm Hg 04/18/2025 6:40 AM EDT [facility] HCO3-Line Draw 25 24 - 28 mmol/L 04/18/2025 6:40 AM EDT [facility] CO2 Content-Line Draw 27 25 - 29 mmol/L 04/18/2025 6:40 AM EDT [facility] Base Excess-Line Draw 0.8 -2.0 - 3.0 mmol/L 04/18/2025 6:40 AM EDT [facility] %HBO2-Line Draw 61.4 40.0 - 70.0 % 04/18/2025 6:40 AM EDT [facility] Carboxyhgb-Kaur e Draw 1.1 % 04/18/2025 6:40 AM EDT [facility] Comment: CARBOXYHEMOGLOBIN (CO) REFERENCE RANGES: Non-Smokers: <2 % Smokers: <8 % TOXIC: >20 % Methemoglobin- Line Draw 0.8 0.0 - 1.5 % 04/18/2025 6:40 AM EDT [facility] Reduced Hemoglobin-Kaur e Draw 36.8(H) 0.0 - 5.0 % 04/18/2025 6:40 AM EDT [facility] Venous, Line Draw 04/18/2025 6:03 AM EDT 04/18/2025 6:36 AM EDT Narrative [facility] - 04/18/2025 6:40 AM EDT Specimen is beyond 15 minutes from time of collection. Results may be compromised. Review results critically. us Ludin Jose MD LAB BLOOD ORDERABLES Final Resul t [facility] [address] [place] [address], [facility] * (ABNORMAL) Renal Function Panel w/EGFR (04/18/2025 6:03 AM EDT) Sodium 138 133 - 146 mmol/L 04/18/2025 8:09 AM T [facility] Potassium 3.3(L) 3.5 - 5.3 mmol/L 04/18[facility]2025 [facility] Chloride 104 98 - 110 mmol/L 04/18/2025 8:09 AM EDT [facility] CO2 26 21 - 33 mmol/L 04/18/2025 8:09 AM T [facility] Comment:High lactate dehydro genase concentrations in patient samples may cause falsely increased bicarbonate results. If markedly elevated LDH is observed or suspected, please assess results in conjunction with patient`s clinical presentation. In cases of discrepant results, consider evaluating CO2 in with a blood gas order. Anion Gap 8 3 - 16 mmol/L 04/18/2025 8:09 AM EDT [facility] BUN 12 7 - 25 mg/dL 04/18/2025 8:[address] [facility] Creatinine 0.77 0.60 - 1.30 mg/dL 04/18/2025 8:09 AM EDT [facility] Glucose 89 70 - 100 mg/dL 04/18/2025 8:09 AM T [facility] Calcium 9.0 8.6 - 10.3 mg/dL 04/18/2025 8:[address] [facility] Phosphorus 3.8 2.1 - 4.7 mg/dL 04/18/2025 8:[address] [facility] Albumin 3.8 3.5 - 5.7 g/dL 04/18/2025 8:[address] [facility] Osmolality, Calculated 285 278 - 305 mOsm/kg 04/18/2025 8:09 AM EDT [facility] EGFR >90 04/18/2025 8:[address] [facility] Comment: As of 2021, the [...] renal disease. For additional information: www.[email or web address].org Plasma 04/18/2025 6:03 AM EDT 04/18/2025 6:45 AM EDT us Ludin Jose MD LAB BLOOD ORDERABLES Final Resul t [facility] [address] [place] [address], [facility] * (ABNORMAL) TEG-Standard Global Hemostasis (Rapid TEG with Heparin Effect, Contains a Baseline TEG) (04/18/2025 6:03 AM EDT) Citrated Kaolin Reaction Time (TEGHEPARINASE) 4.1(L) 4.6 - 9.1 minutes 04/18/2025 7:21 AM EDT [facility] Citrated Rapid Teg Maximum Amplitude (TEGHEPARINASE) 55.2 52.0 - 70.0 mm 04/18/2025 7:21 AM EDT [facility] Citrated Functional Fibrinogen Maximum Amplitude (TEGHEPARINASE) 17.2 15.0 - 32.0 mm 04/18/2025 7:21 AM EDT [facility] Citrated Kaolin W/Heparinase Reaction Time (TEGHEPARINASE) 4.2(L) 4.3 - 8.3 minutes 04/18/2025 7:21 AM EDT [facility] Citrated Kaolin K-Time (TEGHEPARINASE) 1.3(A) 0.8 - 2.1 minutes 04/18/2025 7:21 AM EDT [facility] Citrated Kaolin Angle (TEGHEPARINASE) 73.6(A) 63.0 - 78.0 degrees 04/18/2025 7:21 AM EDT [facility] Citrated Kaolin Maximum Amplitude (TEGHEPARINASE) 56.4 52.0 - 69.0 mm 04/18/2025 7:21 AM EDT [facility] Citrated Functional Fibrinogen- Fibrinogen Level (TEGHEPARINASE) 313.9 278.0 - 581.0 mg/dL 04/18/2025 7:21 AM EDT [facility] Whole Blood (Citrate) 04/18/2025 6:03 AM EDT 04/18/2025 6:45 AM EDT us Ludin Jose MD LAB BLOOD ORDERABLES Final Resul t Performing Organization Address [facility] Co de Phone Number [facility] [address] * Protime-INR (04/18/2025 6:03 AM EDT) Protime 15.1 12.1 - 15.1 seconds 04/18/2025 7:07 AM EDT [facility] INR 1.1 0.9 - 1.1 04/18/2025 7:07 AM EDT [facility] Comment: RECOMMENDED THERAPEUTIC RANGES USING INR : Stable oral anticoagulant therapy: 2.0 - 3.0 Mechanical prosthetic heart valve: 2.5 - 3.5 Recurrent acute myocardial infarction: 2.5 - 3.5 Plasma 04/18/2025 6:03 AM EDT 04/18/2025 6:45 AM EDT us Ludin Jose MD LAB BLOOD ORDERABLES Final Resul t [facility] [address] * Magnesium (04/18/2025 6:03 AM EDT) Magnesium 2.2 1.5 - 2.5 mg/dL 04/18/2025 8:09 AM EDT [facility] Plasma 04/18/2025 6:03 AM EDT 04/18/2025 6:45 AM EDT us Ludin Jose MD LAB BLOOD ORDERABLES Final Resul t [facility] [address] * HIV 1+2 Antibody/Antigen with Reflex (04/18/2025 6:03 AM EDT) HIV 1+2 AB/AGN Nonreactive Nonreactive 04/18/2025 8:32 AM EDT [facility] Serum 04/18/2025 6:03 AM EDT 04/18/2025 6:45 AM EDT Narrative [facility] - 04/18/2025 8:32 AM EDT \HIVRNR us Ludin Jose MD LAB BLOOD ORDERABLES Final Resul t Performing Organization Address [facility] de Phone Number [facility] [address] [facility]. [address] * Hepatitis C RNA, Quant Reflex to Genotyp (04/18/2025 6:03 AM EDT) Pathologist [facility] Units Not Detected IU/mL 04/21/2025 11:40 AM EDT [facility] Comment:Test methodology for HCV RNA quantification is an FDA-approved nucleic acid amplification assay. The Lower Limit of Quantitation (LLOQ) is 15 IU/mL. The linear range of the assay is 15-100,000,000 IU/mL. The Limit of Detection (LoD) is 12.0 IU/mL for EDTA plasma. The reference range is Not Detected. IU log10 See Note log 10 IU/mL 04/21/2025 11:40 AM EDT [facility] Comment:HCV RNA not detected . Plasma 04/18/2025 6:03 AM EDT 04/18/2025 7:58 AM EDT us Ludin Jose MD LAB BLOOD ORDERABLES Final Resul t Performing Organization Address City/[facility]/ZIP Co de Phone Number [facility] [address] * Hepatitis B Core Antibody (04/18/2025 6:03 AM EDT) Hep B Core Total Ab Nonreactive Nonreactive 04/18/2025 8:33 AM EDT [facility] Comment:Health Department no tified in accordance with reportable infectious disease guidelines. Serum 04/18/2025 6:03 AM EDT 04/18/2025 6:45 AM EDT [facility] - 04/18/2025 8:33 AM EDT A nonreactive final interpretation indicates that anti-HBc antibodies were not detected in the sample; it is possible that the individual is not infected with HBV. us Ludin Jose MD LAB BLOOD ORDERABLES Final Resul t Performing Organization Address [facility] Co de Phone Number [facility] [address] [facility]. [address] * (ABNORMAL) Hepatitis C Antibody (04/18/2025 6:03 AM EDT) HCV Ab Reactive( A) Nonreactive 04/18/2025 8:42 AM EDT [facility] Comment: Health Department notified in accordance with reportable infectious disease guidelines. Health Department notified in accordance with reportable infectious disease guidelines. Serum 04/18/2025 6:03 AM EDT 04/18/2025 6:45 AM EDT [facility] - 04/18/2025 8:42 AM EDT Presumptive evidence of antibodies to HCV: follow CDC recommendations for supplemental testing. us Ludin Jose MD LAB BLOOD ORDERABLES Final Resul t Performing Organization Address City/[facility]/ZIP Co de Phone Number [facility] [address] * Hepatitis B Surface Antibody, Quantitati (04/18/2025 6:03 AM EDT) HBSAB NUMBER 5.17 0.00 - 9.99 mIU/mL 04/18/2025 8:46 AM EDT [facility] Hep B S Ab Nonreactive Nonreactive 04/18/2025 8:46 AM EDT [facility] Serum 04/18/2025 6:03 AM EDT 04/18/2025 6:45 AM EDT [facility] - 04/18/2025 8:46 AM EDT Individual is considered not immune to HBV infection. us Ludin Jose MD LAB BLOOD ORDERABLES Final Resul t Performing Organization Address [facility] de Phone Number [facility] [address] * Hepatitis B surface antigen (04/18/2025 6:03 AM EDT) Hep B Surface Ag Nonreactive Nonreactive 04/18/2025 8:37 AM EDT [facility] Comment:Health Department no tified in accordance with reportable infectious disease guidelines. Serum 04/18/2025 6:03 AM EDT 04/18/2025 6:45 AM EDT [facility] - 04/18/2025 8:37 AM EDT Specimen is considered negative for HBsAg. us Ludin Jose MD LAB BLOOD ORDERABLES Final Resul t Performing Organization Address [facility] de Phone Number [facility] [address] * (ABNORMAL) Hepatic Function Panel (04/18/2025 6:03 AM EDT) Total Bilirubin 1.5 0.0 - 1.5 mg/dL 04/18/2025 8:09 AM EDT [facility] Bilirubin, Direct 0.53(H) 0.00 - 0.40 mg/dL 04/18/2025 8:09 AM EDT [facility] AST 37 13 - 39 U/L 04/18/2025 8:09 AM EDT [facility] ALT 25 7 - 52 U/L 04/18/2025 8:09 AM EDT [facility] Alkaline Phosphatase 118 36 - 125 U/L 04/18/2025 8:09 AM EDT [facility] Total Protein 6.7 6.4 - 8.9 g/dL 04/18/2025 8:09 AM EDT [facility] Albumin 3.8 3.5 - 5.7 g/dL 04/18/2025 8:09 AM EDT [facility] Bilirubin, Indirect 0.97 0.00 - 1.10 mg/dL 04/18/2025 8:09 AM EDT [facility] Plasma 04/18/2025 6:03 AM EDT 04/18/2025 6:45 AM EDT us Ludin Jose MD LAB BLOOD ORDERABLES Final Resul t Performing Organization Address City/[facility]/ZIP Co de Phone Number [facility] [address] [facility]. [address] * Fibrinogen (04/18/2025 6:03 AM EDT) Fibrinogen 283 218 - 406 mg/dL 04/18/2025 7:08 AM EDT [facility] Plasma 04/18/2025 6:03 AM EDT 04/18/2025 6:45 AM EDT us Ludin Jose MD LAB BLOOD ORDERABLES Final Resul t Performing Organization Address [facility] de Phone Number [facility] [address] [facility] * (ABNORMAL) Differential (04/18/2025 6:03 AM EDT) Neutrophils Relative 38.8(L) 40.0 - 80.0 % 04/18/2025 6:58 AM EDT [facility] Lymphocytes Relative 28.3 15.0 - 45.0 % 04/18/2025 6:58 AM EDT [facility] Monocytes Relative 14.6(H) 0.0 - 12.0 % 04/18/2025 6:58 AM EDT [facility] Eosinophils Relative 17.3(H) 0.0 - 8.0 % 04/18/2025 6:58 AM EDT [facility] Basophils Relative 1.0 0.0 - 1.0 % 04/18/2025 6:58 AM EDT [facility] nRBC 0 0 - 0 /100 WBC 04/18/2025 6:58 AM EDT [facility] Neutrophils Absolute 1,436(L) 1,520 - 8,640 /uL 04/18/2025 6:58 AM EDT [facility] Lymphocytes Absolute 1,047 570 - 4,860 /uL 04/18/2025 6:58 AM EDT [facility] Monocytes Absolute 540 0 - 1,296 /uL 04/18/2025 6:58 AM EDT [facility] Eosinophils Absolute 640 0 - 864 /uL 04/18/2025 6:58 AM EDT [facility] Basophils Absolute 37 0 - 108 /uL 04/18/2025 6:58 AM EDT [facility] Whole Blood 04/18/2025 6:03 AM EDT 04/18/2025 6:45 AM EDT us Ludin Jose MD LAB BLOOD ORDERABLES Final Resul t [facility] [address] * (ABNORMAL) CBC (04/18/2025 6:03 AM EDT) WBC 3.7(L) 3.8 - 10.8 10E3/uL 04/18/2025 6:58 AM EDT [facility] RBC 3.74(L) 3.80 - 5.10 10E6/uL 04/18/2025 6:58 AM EDT [facility] Hemoglobin 11.7 11.7 - 15.5 g/dL 04/18/2025 6:58 AM EDT [facility] Hematocrit 34.5(L) 35.0 - 45.0 % 04/18/2025 6:58 AM EDT [facility] MCV 92.4 80.0 - 100.0 fL 04/18/2025 6:58 AM EDT [facility] MCH 31.3 27.0 - 33.0 pg 04/18/2025 6:58 AM EDT [facility] MCHC 33.9 32.0 - 36.0 g/dL 04/18/2025 6:58 AM EDT [facility] RDW 14.8 11.0 - 15.0 % 04/18/2025 6:58 AM EDT [facility] Platelets 100(L) 140 - 400 10E3/uL 04/18/2025 6:58 AM EDT [facility] MPV 9.5 7.5 - 11.5 fL 04/18/2025 6:58 AM EDT [facility] Whole Blood 04/18/2025 6:03 AM EDT 04/18/2025 6:45 AM EDT us Ludin Jose MD LAB BLOOD ORDERABLES Final Resul t Performing Organization Address City/[facility] Co de Phone Number [facility] [address] [facility]. [address] * APTT, No Anticoagulant (04/18/2025 6:03 AM EDT) aPTT 28.7 25.5 - 35.0 seconds 04/18/2025 7:08 AM EDT [facility] Plasma 04/18/2025 6:03 AM EDT 04/18/2025 6:45 AM EDT us Ludin Jose MD LAB BLOOD ORDERABLES Final Resul t Performing Organization Address [facility] de Phone Number [facility] [address] * hCG, quantitative, (04/18/2025 6:03 AM EDT) hCG Quant 0.00 mIU/mL 04/18/2025 8:51 AM EDT [facility] Comment: Approximate Approximate Gestational Age hCG Range (Weeks) mIU/mL 0.2-1 5-50 1-2 50-500 2-3 100-5000 3-4 500-75476 4-5 1000-07474 5-6 [id number] 6-8 [id number] 8-12 [id number] This assay is not approved for, and should not be used to diagnose any condition unrelated to . A Negative hCG result is <5.0 mIU/mL. Plasma 04/18/2025 6:03 AM EDT 04/18/2025 6:45 AM EDT Narrative [facility] - 04/18/2025 8:51 AM EDT The testing method for beta-HCG is a chemiluminescent immunoassay manufactured by [employer] Concentrations of beta-HCG obtained by different assay methods or kits may vary and cannot be used interchangeably. Beta-HCG results cannot be interpreted as absolute evidence of the presence or absence of malignant disease. Ludin Jose MD LAB BLOOD ORDERABLES Final Resul t [facility] [address] [place] [address], [facility] * Surgical Pathology Exam (04/18/2025 12:00 AM EDT) 04/18/2025 04/19/2025 Narrative [facility] - 04/18/2025 12:00 AM EDT CASE: [id number] PATIENT: MINDY WADE Clinical History: Living donor liver transplant Pre-Operative Diagnosis: Pre-transplant evaluation for chronic liver disease Post-Operative Diagnosis: Pre-transplant evaluation for chronic liver disease Specimen(s) Submitted: A. anvik gallbladder ; B. common bile duct ; C. [place] liver CPT Code(s): 63641 X 1; 65971 X 1; 43206 X 1; 58699 X 5; 24585 X 1 Additional Information: FINAL DIAGNOSIS: A. Gallbladder, anvik, resection: - No significant pathologic change. - Negative for dysplasia or malignancy. B. Common bile duct, excision: - Biliary epithelium with mild reactive change. - Negative for malignancy. C. Liver, [place]vik, resection: - Cirrhosis, mild septal inflammation and burnt out steatohepatitis; clinical history of HCV and alcoholic liver disease. - Negative for neoplasm. Dave Wilkinson MD (Resident) Gross Description: A. Received in formalin, labeled with the patient's name Mindy Wade and A. [place] gallbladder is a 12.0 x 4.5 x 2.0 cm intact gallbladder with a 3.0 cm open ended cystic duct. The serosal surface of the gallbladder is eisenberg-white, smooth and focally roughened and congested. Gallbladder is opened to reveal about 20 mL of eisenberg-yellow thin mucinous bile with an aggregate of multifaceted gallstones measuring 2.0 cm x 1.0 cm x 0.5 cm in aggregate. Another group of multifaceted gallstones is identified within the cystic duct. The mucosa of the gallbladder is eisenberg-yellow and velvety. Deputy Chief Counsel sections are submitted in cassettes [id number]. (Dave Wilkinson MD (Resident)/ab) B. Received in formalin, labeled with the patient's name Mindy Wade and B. Common bile duct is a piece of eisenberg-white fibrous luminal structure that measures 1.5 cm in length x 0.6 cm in diameter and attached cauterized soft tissue. The specimen is trisected longitudinally and entirely submitted in cassette [id number]. (Dave Wilkinson MD (Resident)/ab) C. Received in formalin, labeled with the patient's name Mindy Wade and C. [place] liver is a 1274-gram, 18.5 x 16.0 x 9.0 cm total hepatectomy specimen. The surface of the liver is eisenberg-white, focally covered by brown-yellow fine nodules on segment 2, 3, 7 and 8. There is a 1.5 x 1.0 x 1.0 cm subcapsular nodule that locates at the inferior segment 3. The surface covering the subcapsular nodule is inked black. The liver is serially sectioned to reveal eisenberg-yellow, diffusely nodular and cirrhotic cut surfaces that is fibrous and firm. The subcapsular nodule at segment 3 measures 1.5 x 1.0 x 1.0 cm and appears grossly well-circumscribed. Deputy Chief Counsel sections are submitted in cassettes [id number] as follows: C1: Hilar margin. C2-C4: Deputy Chief Counsel section of the right lobe. C5-C8: Deputy Chief Counsel section of the left lobe, with C5 containing customer counter representative section of the well-circumscribed and subcapsular mass and C6 presenting the adjacent liver parenchyma and the subcapsular mass. (Dave Wilkinson MD (Resident)/ab) Microscopic Description: Liver: Trichrome stain highlights fibrous bands around regenerative nodules. Reticulin stain is retained in all nodules. Glutamine synthetase is negative. Iron stain shows increased hepatocellular iron deposition. PASd does not show diagnostic intracytoplasmic globules. Copper stain does not show increased copper deposition. I, the attending pathologist, have personally reviewed all prosector/resident work and pathology slides to determine final diagnosis. Control Materials Reacted Appropriately. Final Diagnosis performed by BLAYNE BRENNER MD Pathologist Electronically signed 04/26/2025 01:23:44 PM The Pathologist signing this report is located at [facility], [address] [place] [address], [facility], , CLIA ID: [id number] Ludin Jose MD PATHOLOGY/CYTOLOGY ORDERABLES Fi nal Result POWERPATH documented in this encounter Visit Diagnoses Diagnosis Immunosuppression (CMS-HCC)- Primary Pre-transplant evaluation for chronic liver disease Generalized edema Edema Melena Blood in stool Localized swelling, mass, or lump of upper extremity, right Living related donor renal transplant 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) End-stage liver disease (CMS-HCC) Other sequelae of chronic liver disease documented in this encounter Administered Medications Inactive Administered Medications - up to 3 most recent administrations Medication Order MAR Action Action Date Dose Rate Site acetaminophen (OFIRMEV) IV infusion 1,000 mg 1,000 mg (rounded from 1,062 mg = 15 mg/kg 70.8 kg), Intravenous, Administer over 15 Minutes, Every 8 hours, Indication for Ofirmev use: NON-FORMULARY REQUEST - Patient does not meet other selections, request pharmacy nonformulary review, Reason for NF use: NPO requiring additional MM analgesia New Bag 04/19/2025 4:40 PM EDT 1,000 mg 400 mL/ hr New Bag 04/19/2025 8:24 AM EDT 1,000 mg 400 mL/hr New Bag 04/18/2025 11:42 PM EDT 1,000 mg 400 mL/hr acetaminophen (OFIRMEV) IV infusion 1,000 mg 1,000 mg (rounded from 1,062 mg = 15 mg/kg 70.8 kg), Intravenous, Administer over 15 Minutes, Every 8 hours, Indication for Ofirmev use: NON-FORMULARY REQUEST - Patient does not meet other selections, request pharmacy nonformulary review, Reason for NF use: NPO requiring additional MM analgesia New Bag 04/20/2025 3:03 PM EDT 1,000 mg 400 mL/hr New Bag 04/20/2025 9:11 AM EDT 1,000 mg 400 mL/hr acetaminophen (OFIRMEV) IV infusion 1,000 mg 1,000 mg (rounded from 1,132.5 mg = 15 mg/kg 75.5 kg), Intravenous, Administer over 15 Minutes, Every 8 hours, Indication for Ofirmev use: NON-FORMULARY REQUEST - Patient does not meet other selections, request pharmacy nonformulary review, Reason for NF use: NPO requiring additional MM analgesia New Bag 04/25/2025 12:50 AM EST 1,000 mg 400 mL/hr New 04/24/2025 6:31 PM EST 1,000 mg 400 mL/hr New 04/24/2025 9:21 AM EST 1,000 mg 400 mL/hr acetaminophen (OFIRMEV) IV infusion 1,000 mg 1,000 mg (rounded from 1,132.5 mg = 15 mg/kg 75.5 kg), Intravenous, Administer over 15 Minutes, Every 8 hours, Indication for Ofirmev use: NON-FORMULARY REQUEST - Patient does not meet other selections, request pharmacy nonformulary review, Reason for NF use: NPO requiring additional MM analgesia New Bag 04/27/2025 5:33 AM EST 1,000 mg 400 mL/hr New Bag 04/26/2025 8:24 PM EST 1,000 mg 400 mL/hr New 04/26/2025 1:10 PM EST 1,000 mg 400 mL/hr acetaminophen (TYLENOL) tablet 975 mg 975 mg, Oral, hearing care practitioner to O.R., Give 1 hour pre-op, Starting on Fri04/18/25 at 0717, For 1 dose, Give 1 hour pre-op. Do NOT give if patient has received acetaminophen in the past 6 hours OR if this dose will cause the patient to exceed 4 grams acetaminophen in the past 24 hours. Do NOT give if patient consumes 3 or more alcoholic beverages per day., Pre-op Given 04/18/2025 7:03 AM EDT 975 mg acetaminophen (TYLENOL) tablet 975 mg 975 mg, Oral, Every 8 hours, First dose on Fri04/20/25 at 1630 Given 04/23/2025 12:32 AM EDT 975 mg Given 04/22/2025 4:14 PM EDT 975 mg Given 04/22/2025 9:32 AM EDT 975 mg acetaminophen (TYLENOL) tablet 975 mg 975 mg, Oral, Every 8 hours, First dose on Fri04/27/25 at 1430 Given 05/03/2025 1:16 PM EST 975 mg Given 05/03/2025 5:30 AM EST 975 mg Given 05/02/2025 10:19 PM EST 975 mg albumin human 25% 25 % bottle Starting on Fri04/29/25 at 2244, For 1 dose, Created by cabinet override albumin human 25% 25 % bottle Starting on Fri04/30/25 at 0955, For 1 dose, Created by cabinet override New Bag 04/30/2025 9:56 AM EST 12.5 g 50 mL/hr albumin human 25% 50 mL, Intravenous, Every 30 min, First dose on Fri04/21/25 at 1700, For 2 doses, In Emergencies, may administer as rapidly as needed to improve clinical status., Select indication for use: Hepatic Resection/Liver Transplantation, at 100 mL/hr New Bag 04/21/2025 6:00 PM EDT 50 mLs 100 mL/hr New Bag 04/21/2025 5:40 PM EDT 50 mLs 100 mL/hr albumin human 25% 50 mL, Intravenous, Every 30 min, First dose on Fri04/22/25 at 1300, For 2 doses, In Emergencies, may administer as rapidly as needed to improve clinical status., Select indication for use: Hepatic Resection/Liver Transplantation, at 100 mL/hr New Bag 04/22/2025 1:39 PM EDT 50 mLs 100 mL/hr New Bag 04/22/2025 1:32 PM EDT 50 mLs 100 mL/hr albumin human 25% 50 mL, Intravenous, Every 30 min, First dose on Fri04/29/25 at 0800, For 2 doses, In Emergencies, may administer as rapidly as needed to improve clinical status., Select indication for use: Hepatic Resection/Liver Transplantation, at 100 mL/hr New Bag 04/29/2025 11:32 AM EST 50 mLs 100 mL/hr New Bag 04/29/2025 9:00 AM EST 50 mLs 100 mL/hr albumin human 25% 100 mL, Intravenous, Once, On Fri04/29/25 at 1200, For 1 dose, If lasix ordered, please give albumin before lasix In Emergencies, may administer as rapidly as needed to improve clinical status., Select indication for use: Hepatic Resection/Liver Transplantation, at 100 mL/hr New Bag 04/29/2025 12:17 PM EST 100 mLs 100 mL/hr albumin human 25% 100 mL, Intravenous, Once, On Fri04/29/25 at 2000, For 1 dose, If lasix ordered, please give albumin before lasix In Emergencies, may administer as rapidly as needed to improve clinical status., Select indication for use: Hepatic Resection/Liver Transplantation, at 100 mL/hr New Bag 04/29/2025 10:52 PM EST 100 mLs 100 mL/hr New Bag 04/29/2025 9:05 PM EST 50 mLs 100 mL/hr albumin human 25% 100 mL, Intravenous, Once, On Fri04/30/25 at 0800, For 1 dose, If lasix ordered, please give albumin before lasix In Emergencies, may administer as rapidly as needed to improve clinical status., Select indication for use: Hepatic Resection/Liver Transplantation, at 100 mL/hr New Bag 04/30/2025 8:38 AM EST 100 mLs 100 mL/hr albumin human 25% 12.5 g, Intravenous, Every 30 min, First dose on Fri05/01/25 at 0830, For 2 doses, In Emergencies, may administer as rapidly as needed to improve clinical status., Select indication for use: Nephrotic Syndrome, at 100 mL/hr New Bag 05/01/2025 9:30 AM EST 12.5 g 100 mL/h r New Bag 05/01/2025 8:55 AM EST 12.5 g 100 mL/hr albumin human 25% 50 mL, Intravenous, Every 30 min, First dose on Fri05/02/25 at 1100, For 2 doses, In Emergencies, may administer as rapidly as needed to improve clinical status., Select indication for use: Hepatic Resection/Liver Transplantation, at 100 mL/hr New Bag 05/02/2025 12:15 PM EST 50 mLs 100 mL/hr New Bag 05/02/2025 11:42 AM EST 50 mLs 100 mL/hr albumin human 5% 250 mL, Intravenous, Every 3 hours, First dose on Fri04/20/25 at 2000, For 2 doses, In Emergencies, may administer as rapidly as needed to improve clinical status., Select indication for use: Hepatic Resection/Liver Transplantation, at 83.3 mL/hr New Bag 04/21/2025 12:50 AM EDT 250 mLs 83.3 mL/hr New Bag 04/20/2025 9:48 PM EDT 250 mLs 83.3 mL/hr albumin human 5% 250 mL, Intravenous, Every 3 hours, First dose on Janiya 04/28/25 at 0930, For 2 doses, In Emergencies, may administer as rapidly as needed to improve clinical status., Select indication for use: Hepatic Resection/Liver Transplantation, at 250 mL/hr New Bag 04/28/2025 2:55 PM EST 250 mLs 250 mL/hr New Bag 04/28/2025 11:00 AM EST 250 mLs 250 mL/hr albuterol ([id number]) 90 mcg/actuation inhaler 2 puff 2 puff, Inhalation, RT every 6 hours PRN, Wheezing, Shortness of Breath, Starting on Fri04/20/25 at 0936, SHAKE WELL Given 04/27/2025 2:48 AM EST 2 puffs Given 04/26/2025 7:35 PM EST 2 puffs Given 04/22/2025 1:08 AM EDT 2 puffs AMPicillin 1 g in sodium chloride 0.9% 100 mL IVPB ([id number]) 1 g, Intravenous, at 200 mL/hr, Every 6 hours, First dose on 04/18/25 at 2000, For 7 doses, Dosage may need to be adjusted for renal dysfunction. Full dose is 1g IV q6h Use [id number] Adapter - Mix Thoroughly Before Administration, Post-op New 04/20/2025 9:28 AM EDT 1 g 200 mL/ hr New Bag 04/20/2025 1:19 AM EDT 1 g 200 mL/hr New Bag 04/19/2025 8:32 PM EDT 1 g 200 mL/hr aspirin chewable tablet 81 mg 81 mg, Oral, Daily with breakfast, First dose on Fri04/19/25 at 0800 Given 05/03/2025 8:37 AM EST 81 mg Given 05/02/2025 8:43 AM EST 81 mg Given 05/01/2025 8:56 AM EST 81 mg bisacodyL (DULCOLAX) suppository 10 mg 10 mg, Rectal, Once, On Fri04/20/25 at 1700, For 1 dose Given 04/20/2025 5:53 PM EDT 10 mg bisacodyL (DULCOLAX) suppository 10 mg 10 mg, Rectal, Once, On Fri04/22/25 at 0800, For 1 dose Given 04/22/2025 9:39 AM EDT 10 mg calcium chloride 100 mg/mL (10 %) injection 2 g 2 g, Intravenous, Once, On 04/23/25 at 0330, For 1 dose Given 04/23/2025 3:21 AM EDT 2 g calcium gluconate in sodium chloride, iso-osm 2 gram/100 mL IV solution 2 g 2 g, Intravenous, Administer over 60 Minutes, Once, On Fri04/19/25 at 1930, For 1 dose New Bag 04/19/2025 8:31 PM EDT 2 g 100 mL/hr carvediloL (COREG) tablet 3.125 mg 3.125 mg, Oral, 2 times daily, First dose on Fri04/21/25 at 1600, On hold since Fri04/23/2025 at 0053 until manually unheld Given 04/22/2025 8:08 PM EDT 3.125 mg Given 04/22/2025 9:33 AM EDT 3.125 mg Given 04/21/2025 5:36 PM EDT 3.125 mg cefTRIAXone (ROCEPHIN) 2 g in sodium chloride 0.9% 20 mL IV Push 2 g, Intravenous, at 240 mL/hr, Once, On Fri04/19/25 at 0600, For 1 dose, Give 24 hours after pre-op dose. ADMINISTER IV PUSH. Infuse over 5 minutes. Draw up 20 mL Sodium Chloride 0.9% into empty syringe. Inject 20 mL into vial of Ceftriaxone. Shake well. Withdraw volume into syringe and administer immediately., Post-op Given 04/19/2025 6:24 AM EDT 2 g 240 mL/hr chlorhexidine (PERIDEX) 0.12 % solution 15 mL 15 mL, Mouth/Throat, 2 times daily, First dose on Fri04/18/25 at 2000, [place] teeth 30 seconds each quadrant, for total of 2 minutes From oral care kit Given 04/18/2025 8:19 PM EDT 15 mLs cyclobenzaprine (FLEXERIL) tablet 10 mg 10 mg, Oral, 3 times daily, First dose on Fri04/22/25 at 1030, On hold since 04/23/2025 at 0729 until manually unheld Given 04/22/2025 8:08 PM EDT 10 mg Given 04/22/2025 11:10 AM EDT 10 mg dextrose 10%-water (D10W) IV soln 12.5 g, Intravenous, Every 15 min PRN, Low blood sugar, for glucose < 70 and alert but can not be corrected, orally or via feeding tube, Starting on Fri04/18/25 at 1927, Recheck blood sugar in 15 minutes and repeat treatment if glucose still < 70. For Smart Pump: Set volume to be infused; 125 ml for 12.5 grams or 250 mL for 25 grams. Restarted 04/25/2025 7:24 PM EST 999 mL/hr New Bag 04/25/2025 7:06 PM EST 12.5 g 999 mL/hr dextrose 10%-water (D10W) IV soln 25 g, Intravenous, Every 15 min PRN, Low blood sugar, for glucose < 70 and not alert, Starting on Fri04/18/25 at 1927, Recheck glucose in 15 minutes and repeat treatment if glucose still < 70. For Smart Pump: Set volume to be infused; 125 ml for 12.5 grams or 250 mL for 25 grams. New Bag 04/26/2025 12:18 AM EST 25 g 999 mL/hr dextrose 5 % and 0.45 % NaCl with KCl 20 mEq infusion 1000 mL 50 mL/hr, Intravenous, Continuous, Starting on Fri04/26/25 at 1430 New Bag 04/26/2025 2:08 PM EST 50 mL/hr 50 mL/hr dextrose 5 % and 0.9 % NaCl infusion 1000 mL 75 mL/hr, Intravenous, Continuous, Starting on Fri04/26/25 at 0100, For 11 hours Rate/Dose Verify 04/26/2025 11:22 AM EST 75 mL/hr Restarted 04/26/2025 7:45 AM EST 75 mL/hr Restarted 04/26/2025 4:19 AM EST 75 mL/hr diphenhydrAMINE (BENADRYL) capsule 25 mg 25 mg, Oral, Once, On 05/01/25 at 0230, For 1 dose Given 05/01/2025 2:28 AM EST 25 mg diphenhydrAMINE (BENADRYL) injection 25 mg 25 mg, Intravenous, Once, On Janiya 04/28/25 at 2130, For 1 dose Given 04/28/2025 9:33 PM EST 25 mg electrolyte-R (pH 7.4) (NORMOSOL-R pH 7.4) IV bolus 1,000 mL Intravenous, Administer over 1.001 Hours, at 999 mL/hr, Once, On 04/23/25 at 0030, For 1 dose New Bag 04/23/2025 12:29 AM EDT 1,000 mLs 999 mL/hr EPINEPHrine (ADRENALIN) 10 mg in sodium chloride 0.9 % 250 mL infusion Intravenous, at 3 mL/hr, Continuous, Starting on 04/23/25 at 0400, DO NOT TITRATE - [facility] Tele Monitoring required; do not discontinue [facility] CENTRAL LINE PREFERRED: Peripheral line may be used for urgent initiation prior to placement of central line. Rate/Dose Verify 04/23/2025 8:57 AM EDT 2 mcg/min 3 mL/hr Rate/Dose Change 04/23/2025 8:37 AM EDT 2 mcg/min 3 mL/hr Rate/Dose Change 04/23/2025 8:34 AM EDT 1.5 mcg/min 2.3 mL /hr EPINEPHrine (ADRENALIN) 10 mg in sodium chloride 0.9 % 250 mL infusion Intravenous, at 0-22.5 mL/hr, Continuous, Starting on 04/23/25 at 0930, CMU Tele Monitoring required; do not discontinue [facility] CENTRAL LINE PREFERRED: Peripheral line may be used for urgent initiation prior to placement of central line., Initial starting rate: 2 mcg/min, Titrate by: 0.5 - 5 mcg/min, Titration interval: no more frequent than: 2 minutes, Clinical Goal: MAP greater than or equal to 65 mmHg, Contact Provider: If goals cannot be maintained at highest permissible dose Rate/Dose Verify 04/23/2025 9:01 AM EDT 2 mcg/min 3 mL/hr New Bag 04/23/2025 8:59 AM EDT 2 mcg/min 3 mL/hr EPINEPHrine 10 mcg/mL in D5W 10 mL IV 100 mcg/10 mL (10 mcg/mL) syringe Starting on 04/23/25 at 0239, For 1 dose, Created by cabinet override IV PUSH PRESSOR Given 04/23/2025 2:46 AM E DT 40 mcg etomidate (AMIDATE) 2 mg/mL injection Starting on 04/23/25 at 0243, For 1 dose, Created by cabinet override CMU Telemetry Monitoring Required, do not discontinue CMU. etomidate (AMIDATE) injection 23 mg 23 mg (rounded from 22.65 mg = 0.3 mg/kg 75.5 kg), Intravenous, Once, On 04/23/25 at 0300, For 1 dose, To bedside CMU Telemetry Monitoring Required, do not discontinue [facility]U. Given 04/23/2025 2:44 AM EDT 23 mg famotidine (PF) (PEPCID) injection 20 mg 20 mg, Intravenous, Every 12 hours scheduled (2 times per day), First dose on Fri04/18/25 at 2100, Post-op Given 04/20/2025 8:18 AM EDT 20 mg Given 04/19/2025 8:12 PM EDT 20 mg Given 04/19/2025 8:25 AM EDT 20 mg FentaNYL (SUBLIMAZE) 2500 mcg (10 mcg/mL) in NSS 250 mL IV infusion Intravenous, at 0-12.5 mL/hr, Continuous, Starting on Fri04/18/25 at 1930, If the patient is pharmacologically paralyzed DO NOT titrate this medication; maintain the last effective dose before the paralytic was administered. Start continuous infusion at initial ordered rate. Titrate infusion no more frequent than every 5 minutes to goal as defined in order. Provide bolus from bag with every rate increase of fentaNYL infusion. When fentaNYL infusion LESS THAN 25 mcg/hr, consider discontinuation of infusion and use of bolus-only PRN therapy. If CPOT GREATER THAN or EQUAL to 3 AND off infusion; provide fentaNYL bolus from bag per PRN order. If unable to maintain CPOT LESS THAN 3 within 5 minutes of bolus-only approach (off infusion); administer second fentaNYL bolus and restart fentaNYL continuous infusion at most recent recorded infusion rate. Post-SAT, refer to ABCDEF bundle guidelines regarding titration of analgesic and sedative infusions, Initial starting rate: 50 mcg/hr, Titrate by: 10-50 mcg/hr, Titration interval: no more frequent than: 5 minutes, Clinical Goal: CPOT =, Goal CPOT: <3, Contact Provider: If goal cannot be maintained at highest permissible dose Rate/Dose Verify 04/18/2025 10:00 PM EDT 100 mcg/hr 10 mL/hr Rate/Dose Verify 04/18/2025 8:39 PM EDT 100 mcg/hr 10 mL/h r Rate/Dose Verify 04/18/2025 8:11 PM EDT 100 mcg/hr 10 mL/h r FentaNYL (SUBLIMAZE) 2500 mcg (10 mcg/mL) in NSS 250 mL IV infusion Intravenous, at 0-12.5 mL/hr, Continuous, Starting on 04/23/25 at 0400, If the patient is pharmacologically paralyzed DO NOT titrate this medication; maintain the last effective dose before the paralytic was administered. Start continuous infusion at initial ordered rate. Titrate infusion no more frequent than every 5 minutes to goal as defined in order. Provide bolus from bag with every rate increase of fentaNYL infusion. When fentaNYL infusion LESS THAN 25 mcg/hr, consider discontinuation of infusion and use of bolus-only PRN therapy. If CPOT GREATER THAN or EQUAL to 3 AND off infusion; provide fentaNYL bolus from bag per PRN order. If unable to maintain CPOT LESS THAN 3 within 5 minutes of bolus-only approach (off infusion); administer second fentaNYL bolus and restart fentaNYL continuous infusion at most recent recorded infusion rate. Post-SAT, refer to ABCDEF bundle guidelines regarding titration of analgesic and sedative infusions, Initial starting rate: 50 mcg/hr, Titrate by: 10-50 mcg/hr, Titration interval: no more frequent than: 5 minutes, Clinical Goal: CPOT =, Goal CPOT: <3, Contact Provider: If goal cannot be maintained at highest permissible dose Rate/Dose Verify 04/24/2025 7:00 AM EST 125 mcg/hr 12.5 mL/hr Rate/Dose Verify 04/24/2025 6:21 AM EST 125 mcg/hr 12.5 mL /hr Rate/Dose Verify 04/24/2025 5:59 AM EST 125 mcg/hr 12.5 mL /hr fentaNYL (SUBLIMAZE) bolus from bag 50 mcg 50 mcg, Intravenous, Every 5 min PRN, moderate pain (NRS 4-6) or if patient is non-communicative (CPOT 3-5), severe pain (NRS 7-10) or if patient is non-communicative (CPOT 6-8), Starting on 04/18/25 at 1928, Provide bolus from bag for every rate increase in fentaNYL infusion. When fentaNYL infusion LESS THAN 25 mcg/hr, consider discontinuation of infusion and use of bolus-only PRN therapy. If CPOT GREATER THAN or EQUAL to 3; bolus with fentaNYL from bag per PRN order. HIGH ALERT MEDICATION Bolus from Bag 04/18/2025 7:35 PM EDT 50 mcg 300 mL/hr Bolus from Bag 04/18/2025 7:06 PM EDT 50 mcg 300 mL/hr fentaNYL (SUBLIMAZE) bolus from bag 50 mcg 50 mcg, Intravenous, Every 5 min PRN, moderate pain (NRS 4-6) or if patient is non-communicative (CPOT 3-5), severe pain (NRS 7-10) or if patient is non-communicative (CPOT 6-8), Starting on 04/23/25 at 0345, Provide bolus from bag for every rate increase in fentaNYL infusion. When fentaNYL infusion LESS THAN 25 mcg/hr, consider discontinuation of infusion and use of bolus-only PRN therapy. If CPOT GREATER THAN or EQUAL to 3; bolus with fentaNYL from bag per PRN order. HIGH ALERT MEDICATION Bolus from Bag 04/24/2025 8:01 AM EST 50 mcg 999 mL/hr Bolus from Bag 04/23/2025 8:39 PM EDT 50 mcg 300 mL/hr Bolus from Bag 04/23/2025 6:54 PM EDT 50 mcg 300 mL/hr fluconazole (DIFLUCAN) 200 mg in iso-osm sodium chloride 100 mL 200 mg, Intravenous, Administer over 60 Minutes, Every 24 hours, First dose on Fri04/19/25 at 0900, DO NOT REFRIGERATE., Indication? Prophylaxis-Surgical, Site of diagnosed infections (select all that apply): Abdominal/Pelvic New Bag 04/20/2025 9:13 AM EDT 200 mg 1 00 mL/hr Rate/Dose Verify 04/19/2025 10:00 AM EDT 100 mL /hr New Bag 04/19/2025 9:54 AM EDT 200 mg 100 mL/hr fluconazole (DIFLUCAN) 200 mg in iso-osm sodium chloride 100 mL 200 mg, Intravenous, Administer over 60 Minutes, Every 24 hours, First dose on Fri04/23/25 at 1200, DO NOT REFRIGERATE., Indication? Prophylaxis-Medical, Site of diagnosed infections (select all that apply): Abdominal/Pelvic New Bag 04/28/2025 12:15 PM EST 200 mg 100 mL/hr New Bag 04/27/2025 12:00 PM EST 200 mg 100 mL/hr New Bag 04/26/2025 12:06 PM EST 200 mg 100 mL/hr fluconazole (DIFLUCAN) tablet 200 mg 200 mg, Oral, Daily, First dose on Fri04/21/25 at 0900, DO NOT CRUSH OR CHEW. Given 04/22/2025 9:33 AM EDT 200 mg Given 04/21/2025 9:29 AM EDT 200 mg fluconazole (DIFLUCAN) tablet 200 mg 200 mg, Oral, Daily, First dose on Fri04/29/25 at 0900, For 25 doses, DO NOT CRUSH OR CHEW. Given 05/03/2025 8:37 AM EST 200 mg Given 05/02/2025 8:43 AM EST 200 mg Given 05/01/2025 8:56 AM EST 200 mg furosemide (LASIX) injection 20 mg 20 mg, Intravenous, Once, On Fri04/26/25 at 1130, For 1 dose, Give doses of 100mg or less over 5 minutes. For doses over 100mg, give at rate of up to 20mg/min. Given 04/26/2025 12:03 PM EST 20 mg furosemide (LASIX) injection 20 mg 20 mg, Intravenous, Once, On Fri04/27/25 at 1030, For 1 dose, Give doses of 100mg or less over 5 minutes. For doses over 100mg, give at rate of up to 20mg/min. Given 04/27/2025 11:46 AM EST 20 mg furosemide (LASIX) injection 20 mg 20 mg, Intravenous, Once, On 05/02/25 at 1300, For 1 dose, Give doses of 100mg or less over 5 minutes. For doses over 100mg, give at rate of up to 20mg/min. Given 05/02/2025 1:51 PM EST 20 mg furosemide (LASIX) injection 40 mg 40 mg, Intravenous, Once, On Fri04/22/25 at 1330, For 1 dose, 30 mins after albumin Given 04/22/2025 2:45 PM EDT 40 m g furosemide (LASIX) injection 40 mg 40 mg, Intravenous, Once, On Fri04/29/25 at 0800, For 1 dose, Give doses of 100mg or less over 5 minutes. For doses over 100mg, give at rate of up to 20mg/min. Given 04/29/2025 1:40 PM EST 40 mg furosemide (LASIX) injection 40 mg 40 mg, Intravenous, Once, On Fri04/29/25 at 1600, For 1 dose Given 04/29/2025 5:03 PM EST 40 mg furosemide (LASIX) injection 40 mg 40 mg, Intravenous, Once, On 04/30/25 at 0900, For 1 dose Given 04/30/2025 12:05 PM EST 40 mg furosemide (LASIX) injection 40 mg 40 mg, Intravenous, Once, On 05/01/25 at 0930, For 1 dose, Give doses of 100mg or less over 5 minutes. For doses over 100mg, give at rate of up to 20mg/min. Given 05/01/2025 10:13 AM EST 40 mg gabapentin (NEURONTIN) capsule 800 mg 800 mg, Oral, 3 times daily, First dose on Fri04/18/25 at 2100 Given 04/22/2025 9:48 AM EDT 800 mg Given 04/21/2025 8:28 PM EDT 800 mg Given 04/21/2025 1:48 PM EDT 800 mg gabapentin (NEURONTIN) capsule 900 mg 900 mg, Oral, 3 times daily, First dose (after last modification) on Fri04/22/25 at 1300, On hold since 04/23/2025 at 0729 until manually unheld Given 04/22/2025 8:08 PM EDT 900 mg Given 04/22/2025 1:41 PM EDT 900 mg gabapentin (NEURONTIN) capsule 900 mg 900 mg, Oral, Once, On Fri04/25/25 at 1900, For 1 dose Given 04/25/2025 7:07 PM EST 900 mg gabapentin (NEURONTIN) capsule 900 mg 900 mg, Oral, 3 times daily, First dose (after last modification) on Fri04/26/25 at 0900 Given 04/28/2025 12:18 PM EST 900 mg Given 04/28/2025 8:30 AM EST 900 mg Given 04/27/2025 7:57 PM EST 900 mg gadobutrol (GADAVIST) 1 mmol/1 mL IV syringe 6.5 mL 6.5 mL (rounded from 6.64 mL = 0.1 mL/kg 66.4 kg), Intravenous, IMG once as needed, contrast, Starting on Fri05/02/25 at 0116, For 1 dose Given 05/01/2025 11:34 AM EST 6.5 mLs heparin (porcine) injection 5,000 Units 5,000 Units, Subcutaneous, Once, On Fri04/18/25 at 0600, For 1 dose, Administer prior to surgery procedure., Pre-opIndications:Pre-transp lant evaluation for chronic liver disease Given 04/18/2025 6:54 AM EDT 5,000 Units Abdominal Tissue heparin (porcine) injection 5,000 Units 5,000 Units, Subcutaneous, Every 8 hours scheduled (3 times per day), First dose on Fri04/18/25 at 1900 Given 05/03/2025 1:16 PM EST 5,000 Units Abdominal Tissue Given 05/03/2025 5:30 AM EST 5,000 Units A bdominal Tissue Given 05/02/2025 9:12 PM EST 5,000 Units L eft Arm HYDROmorphone (DILAUDID) injection 0.5 mg 0.5 mg, Intravenous, Every 2 hour PRN, moderate pain (NRS 4-6) or if patient is non-communicative (CPOT 3-5), Starting on Fri04/18/25 at 2359, For 48 hours Given 04/19/2025 5:31 PM EDT 0.5 mg Given 04/19/2025 3:20 PM EDT 0.5 mg HYDROmorphone (DILAUDID) injection 0.5 mg 0.5 mg, Intravenous, Every 4 hours PRN, severe pain (NRS 7-10) or if patient is non-communicative (CPOT 6-8), for breakthrough pain, Starting on Janiya 04/21/25 at 0701, For 3 days Given 04/22/2025 1:52 PM EDT 0.5 mg Given 04/22/2025 9:27 AM EDT 0.5 mg Given 04/22/2025 5:04 AM EDT 0.5 mg HYDROmorphone (DILAUDID) injection 0.5 mg 0.5 mg, Intravenous, Every 4 hours PRN, severe pain (NRS 7-10) or if patient is non-communicative (CPOT 6-8), Starting on Fri04/22/25 at 1557, For 2 days Given 04/22/2025 10:30 PM EDT 0.5 mg Given 04/22/2025 6:03 PM EDT 0.5 mg HYDROmorphone (DILAUDID) injection 0.5 mg 0.5 mg, Intravenous, Every 2 hour PRN, severe pain (NRS 7-10) or if patient is non-communicative (CPOT 6-8), Starting on Janiya 04/28/25 at 1335, For 2 days Given 04/29/2025 6:46 PM EST 0.5 mg Given 04/29/2025 3:01 PM EST 0.5 mg Given 04/29/2025 11:36 AM EST 0.5 mg HYDROmorphone (DILAUDID) injection 0.5 mg 0.5 mg, Intravenous, Every 4 hours PRN, severe pain (NRS 7-10) or if patient is non-communicative (CPOT 6-8), for breakthrough pain only after taking oral pain medications, Starting on Fri04/29/25 at 2017, For 3 days Given During Downtime 04/30/2025 2:25 AM EST 0.5 mg HYDROmorphone (DILAUDID) injection Syrg 1 mg 1 mg, Intravenous, Every 2 hour PRN, severe pain (NRS 7-10) or if patient is non-communicative (CPOT 6-8), Starting on 04/18/25 at 2359, For 48 hours Given 04/20/2025 4:21 PM EDT 1 mg Given 04/20/2025 12:32 PM EDT 1 mg Given 04/20/2025 10:28 AM EDT 1 mg HYDROmorphone (DILAUDID) injection Syrg 1 mg 1 mg, Intravenous, Every 3 hours PRN, severe pain (NRS 7-10) or if patient is non-communicative (CPOT 6-8), Starting on Fri04/20/25 at 1750, For 2 days Given 04/21/2025 5:38 AM EDT 1 mg Given 04/21/2025 2:25 AM EDT 1 mg Given 04/20/2025 11:16 PM EDT 1 mg HYDROmorphone (DILAUDID) injection Syrg 1 mg 1 mg, Intravenous, Every 2 hour PRN, severe pain (NRS 7-10) or if patient is non-communicative (CPOT 6-8), Starting on 04/24/25 at 0911, For 59 hours Given 04/26/2025 10:31 AM EST 1 mg Given 04/26/2025 8:13 AM EST 1 mg Given 04/26/2025 6:03 AM EST 1 mg HYDROmorphone (DILAUDID) injection Syrg 1 mg 1 mg, Intravenous, Every 2 hour PRN, severe pain (NRS 7-10) or if patient is non-communicative (CPOT 6-8), Starting on 04/26/25 at 1409, For 100 hours Given 04/28/2025 10:45 AM EST 1 mg Given 04/28/2025 7:45 AM EST 1 mg Given 04/28/2025 2:29 AM EST 1 mg hydrOXYzine HCL (ATARAX) 10 mg/5 mL syrup 10 mg 10 mg, Oral, 3 times daily PRN, Other, Starting on 04/30/25 at 2203 Given 05/01/2025 6:23 AM EST 10 mg Given 04/30/2025 10:22 PM EST 10 mg hydrOXYzine HCL (ATARAX) 10 mg/5 mL syrup 25 mg 25 mg, Oral, 3 times daily PRN, Other, Starting on 05/01/25 at 0755 Given 05/02/2025 12:54 AM EST 25 mg insulin (HumuLIN R) infusion - TITRATABLE NURSING PROTOCOL (HYPERGLYCEMIA) 0-28 Units/hr (0-28 mL/hr), Intravenous, Continuous, Starting on Fri04/18/25 at 1900, Discontinue all oral anti-diabetic medications. HIGH ALERT MEDICATION Rate/Dose Verify 04/19/2025 8:00 AM EDT 2 Units/hr 2 mL/hr Rate/Dose Verify 04/19/2025 6:00 AM EDT 2 Units/hr 2 mL/hr Rate/Dose Verify 04/19/2025 4:00 AM EDT 2 Units/hr 2 mL/hr insulin lispro (humaLOG/ADMELOG) injection 0-12 Units 0-12 Units, Subcutaneous, 3 times daily before meals, First dose on Fri04/29/25 at 1330, HIGH ALERT MEDICATION Given 05/03/2025 1:17 PM EST 2 Units Abdo sola Tissue Given 05/02/2025 5:13 PM EST 2 Units Ab dominal Tissue Given 04/30/2025 5:05 PM EST 2 Units Le ft Arm insulin regular (HumuLIN R/NovoLIN R) injection Soln 0-12 Units 0-12 Units, Subcutaneous, Every 6 hours scheduled, First dose on Fri04/19/25 at 1200, HIGH ALERT MEDICATION Given 04/23/2025 12:20 PM EDT 2 Units Abdo sola Tissue Given 04/23/2025 12:32 AM EDT 4 Units A bdominal Tissue Given 04/22/2025 5:39 PM EDT 2 Units Ri ght Arm ipratropium-albuteroL (DUO-NEB) 0.5 mg-3 mg(2.5 mg base)/3 mL nebulizer solution 3 mL 3 mL, Nebulization, RT every 4 hours PRN, Wheezing, Starting on 04/23/25 at 0303 ipratropium-albuteroL (DUO-NEB) 0.5 mg-3 mg(2.5 mg base)/3 mL nebulizer solution 3 mL 3 mL, Nebulization, RT Every 4 hours, First dose on 04/23/25 at 0500 Given 04/24/2025 4:07 PM EST 3 mLs Given 04/24/2025 12:12 PM EST 3 mLs Given 04/24/2025 8:49 AM EST 3 mLs ipratropium-albuteroL (DUO-NEB) 0.5 mg-3 mg(2.5 mg base)/3 mL nebulizer solution Starting on 04/23/25 at 0237, For 1 dose, Created by scott bowie ketamine (KETALAR) injection 15 mg 15 mg (rounded from 15.1 mg = 0.2 mg/kg 75.5 kg), Intravenous, Once, On 04/23/25 at 0200, For 1 dose, Give IVP for dissociative anesthesia. MUST BE ADMINISTERED by a credentialed provider (ED, Anesthesia, and select Trauma Attending MDs) or LINING PRINTER only. Nursing may administer doses of 0.3 mg/kg or less. Given 04/23/2025 1:54 AM EDT 15 mg ketamine (KETALAR) injection 15 mg 15 mg (rounded from 15.1 mg = 0.2 mg/kg 75.5 kg), Intravenous, Once, On 04/23/25 at 0230, For 1 dose, Give IVP for dissociative anesthesia. MUST BE ADMINISTERED by a credentialed provider (ED, Anesthesia, and select Trauma Attending MDs) or LINING PRINTER only. Nursing may administer doses of 0.3 mg/kg or less. Given 04/23/2025 2:10 AM EDT 15 mg lidocaine (LIDODERM) 5 % 1 patch 1 patch, Transdermal, Daily, First dose on Fri04/20/25 at 1030, LEAVE PATCH ON FOR 12 HOURS,THEN REMOVE FOR 12 HOURS. Patch Applied 04/24/2025 8:16 AM EST 1 patch Other Patch Applied 04/22/2025 1:45 PM EDT 1 patch Other Patch Applied 04/21/2025 9:30 AM EDT 1 patch Other lidocaine (LIDODERM) 5 % 2 patch 2 patch, Transdermal, Daily, First dose (after last modification) on 04/24/25 at 1730, LEAVE PATCH ON FOR 12 HOURS,THEN REMOVE FOR 12 HOURS. Patch Applied 05/02/2025 6:10 PM EST 2 patches Othe r Patch Applied 05/02/2025 2:15 AM EST 2 patches Other Patch Applied 04/30/2025 8:10 PM EST 2 patches Other magnesium oxide (MAG-OX) tablet 400 mg 400 mg, Oral, 2 times daily, First dose on Fri05/03/25 at 1030, For 4 doses Given 05/03/2025 11:20 AM EST 400 mg magnesium sulfate in D5W 100 mL 1 gram/100 mL IVPB 1 g 1 g, Intravenous, at 100 mL/hr, Every hour, First dose on Fri04/23/25 at 0600, For 2 doses New Bag 04/23/2025 5:02 AM EDT 1 g 10 0 mL/hr New Bag 04/23/2025 3:38 AM EDT 1 g 100 mL/hr magnesium sulfate in sterile water 50 mL IVPB 2 g 2 g, Intravenous, Administer over 120 Minutes, Once, On Fri04/27/25 at 0530, For 1 dose New Bag 04/27/2025 6:03 AM EST 2 g 25 mL/hr magnesium sulfate in sterile water 50 mL IVPB 2 g 2 g, Intravenous, Administer over 120 Minutes, Once, On Fri04/29/25 at 0630, For 1 dose New Bag 04/29/2025 6:59 AM EST 2 g 25 mL/hr melatonin tablet Tab 3 mg 3 mg, Oral, At Bedtime (2100), First dose on Fri04/24/25 at 2100, FOR INSOMNIA Given 05/02/2025 9:12 PM EST 3 mg Given 05/02/2025 12:54 AM EST 3 mg Given 04/30/2025 9:13 PM EST 3 mg methocarbamoL (ROBAXIN) injection 1,000 mg 1,000 mg, Intravenous, Every 8 hours, First dose (after last modification) on 04/24/25 at 2330, For 8 doses, May be administered slow IV Push; no faster than 3 mL/min. Do not exceed 3 grams per 24 hours. Contraindicated in patients with renal dysfunction. Given 04/25/2025 6:15 AM EST 1,000 mg Given 04/24/2025 11:08 PM EST 1,000 mg methocarbamoL (ROBAXIN) injection 1,000 mg 1,000 mg, Intravenous, Every 8 hours, First dose (after last modification) on Fri04/25/25 at 1600, For 6 doses, May be administered slow IV Push; no faster than 3 mL/min. Do not exceed 3 grams per 24 hours. Contraindicated in patients with renal dysfunction. Given 04/27/2025 7:37 AM EST 1,000 mg Given 04/26/2025 11:48 PM EST 1,000 mg Given 04/26/2025 4:05 PM EST 1,000 mg methocarbamoL (ROBAXIN) injection 500 mg 500 mg, Intravenous, Every 8 hours, First dose on Fri04/19/25 at 0830, For 3 days, May be administered slow IV Push; no faster than 3 mL/min. Do not exceed 3 grams per 24 hours. Contraindicated in patients with renal dysfunction. Given 04/20/2025 11:16 PM EDT 500 mg Given 04/20/2025 4:21 PM EDT 500 mg Given 04/20/2025 8:23 AM EDT 500 mg methocarbamoL (ROBAXIN) injection 500 mg 500 mg, Intravenous, Every 8 hours, First dose on Fri04/24/25 at 1530, For 3 days, May be administered slow IV Push; no faster than 3 mL/min. Do not exceed 3 grams per 24 hours. Contraindicated in patients with renal dysfunction. Given 04/24/2025 3:39 PM EST 500 mg methocarbamoL (ROBAXIN) tablet 1,000 mg 1,000 mg, Oral, 4 times a day, First dose on Fri04/21/25 at 0900 Given 04/22/2025 9:33 AM EDT 1,000 mg Given 04/21/2025 10:40 PM EDT 1,000 mg Given 04/21/2025 5:19 PM EDT 1,000 mg methocarbamoL (ROBAXIN) tablet 1,000 mg 1,000 mg, Oral, 3 times daily, First dose (after last modification) on Fri04/28/25 at 1300 Given 05/03/2025 1:17 PM EST 1,000 mg Given 05/03/2025 8:37 AM EST 1,000 mg Given 05/02/2025 9:12 PM EST 1,000 mg methocarbamoL (ROBAXIN) tablet 500 mg 500 mg, Oral, 4 times a day, First dose on Fri04/27/25 at 1700 Given 04/28/2025 8:30 AM EST 500 mg Given 04/27/2025 7:57 PM EST 500 mg Given 04/27/2025 3:45 PM EST 500 mg methylPREDNISolone sod suc(PF) (SOLU-medrol) SolR 125 mg 125 mg, Intravenous, Once, On Fri04/20/25 at 0900, For 1 dose, POD #2 - Dose. Mix until dissolved and use immediately. MIX THOROUGHLY PRIOR TO ADMINISTRATION., Post-op Given 04/20/2025 8:23 AM EDT 125 mg methylPREDNISolone sod suc(PF) (SOLU-medrol) SolR 125 mg 125 mg, Intravenous, Once, On 04/23/25 at 0330, For 1 dose, MIX THOROUGHLY PRIOR TO ADMINISTRATION. Given 04/23/2025 4:54 AM EDT 125 mg methylPREDNISolone sod suc(PF) (SOLU-medrol) SolR 50 mg 50 mg, Intravenous, Once, On Fri04/22/25 at 0900, For 1 dose, POD #4 - Dose. Mix until dissolved and use immediately. MIX THOROUGHLY PRIOR TO ADMINISTRATION. Given 04/22/2025 9:36 AM EDT 50 mg methylPREDNISolone sod suc(PF) (SOLU-medrol) SolR 60 mg 60 mg, Intravenous, Once, On Janiya 04/21/25 at 0900, For 1 dose, POD # 3 - Dose. Mix until dissolved and use immediately. MIX THOROUGHLY PRIOR TO ADMINISTRATION. Given 04/21/2025 9:30 AM EDT 60 mg methylPREDNISolone sodium succinate (SOLU-medrol) 250 mg in sodium chloride 0.9 % 100 mL IVPB 250 mg, Intravenous, at 200 mL/hr, Once, On Fri04/19/25 at 0900, For 1 dose, POD #1 - Dose, Administer over 30 Minutes, Post-op Rate/Dose Verify 04/19/2025 1:00 PM EDT 200 mL/hr New Bag 04/19/2025 12:33 PM EDT 250 mg 200 mL/hr mycophenolate (CELLCEPT) 500 mg in dextrose 5% in water (D5W) 50 mL IVPB 500 mg, Intravenous, Administer over 2 Hours, 2 times daily, LEVEL 2 HAZARDOUS MEDICATION New Bag 04/20/2025 9:53 AM EDT 500 mg 25 mL/hr New Bag 04/19/2025 8:31 PM EDT 500 mg 25 mL/hr Rate/Dose Verify 04/19/2025 11:00 AM EDT 25 mL/ hr mycophenolate (CELLCEPT) 500 mg in dextrose 5% in water (D5W) 50 mL IVPB 500 mg, Intravenous, Administer over 2 Hours, Every 12 hours, LEVEL 2 HAZARDOUS MEDICATION New Bag 04/28/2025 12:17 PM EST 500 mg 25 mL/h r New Bag 04/28/2025 12:28 AM EST 500 mg 25 mL/hr New Bag 04/27/2025 11:03 AM EST 500 mg 25 mL/hr mycophenolate (CELLCEPT) capsule 500 mg 500 mg, Oral, 2 times daily, First dose on Fri04/20/25 at 2100, LEVEL 2 HAZARDOUS MEDICATION Given 04/22/2025 8:07 PM EDT 500 mg Given 04/22/2025 9:33 AM EDT 500 mg Given 04/21/2025 8:27 PM EDT 500 mg mycophenolate (CELLCEPT) capsule 500 mg 500 mg, Oral, 2 times daily, First dose on Janiya 04/28/25 at 2100, LEVEL 2 HAZARDOUS MEDICATION Given 05/03/2025 8:37 AM EST 500 mg Given 05/02/2025 9:12 PM EST 500 mg Given 05/02/2025 8:43 AM EST 500 mg norepinephrine (LEVOPHED) 16 mg/250 mL (64 mcg/mL) infusion Intravenous, at 0-28.1 mL/hr, Continuous, Starting on Fri04/18/25 at 1930, FOR CENTRAL LINE USE ONLY, Initial starting rate: 2 mcg/min, Titrate by: 0.5 - 5 mcg/min, Titration interval: no more frequent than: 2 minutes, Clinical Goal: MAP greater than or equal to 65 mmHg, Contact Provider: If goals cannot be maintained at highest permissible dose New Bag 04/18/2025 7:09 PM EDT 2 mcg/min 1.9 mL/hr OMNIPAQUE (iohexol) 350 mg iodine/mL 125 mL 125 mL, Intravenous, IMG once as needed, contrast, Starting on Fri04/29/25 at 0624, For 1 dose Given 04/29/2025 6:06 AM EST 125 mLs ondansetron (ZOFRAN) injection 4 mg 4 mg, Intravenous, Every 6 hours PRN, Nausea and/or Vomiting, Starting on Fri04/19/25 at 1600 Given 04/22/2025 4:01 PM EDT 4 mg oxyCODONE (ROXICODONE) immediate release tablet 10 mg 10 mg, Oral, Every 4 hours PRN, severe pain (NRS 7-10) or if patient is non-communicative (CPOT 6-8), Starting on Janiya 04/21/25 at 0701, If on IV and PO pain medications, use IV if patient cannot tolerate oral. Given 04/22/2025 11:54 AM EDT 10 mg Given 04/22/2025 6:55 AM EDT 10 mg Given 04/22/2025 3:10 AM EDT 10 mg oxyCODONE (ROXICODONE) immediate release tablet 10 mg 10 mg, Oral, Every 4 hours PRN, severe pain (NRS 7-10) or if patient is non-communicative (CPOT 6-8), Starting on Fri04/22/25 at 1557, If on IV and PO pain medications, use IV if patient cannot tolerate oral. Given 04/22/2025 8:08 PM EDT 10 mg Given 04/22/2025 4:04 PM EDT 10 mg oxyCODONE (ROXICODONE) immediate release tablet 10 mg 10 mg, Oral, Every 4 hours PRN, severe pain (NRS 7-10) or if patient is non-communicative (CPOT 6-8), Starting on Fri04/27/25 at 1403, If on IV and PO pain medications, use IV if patient cannot tolerate oral. Given 04/28/2025 6:42 AM EST 10 mg Given 04/27/2025 11:05 PM EST 10 mg Given 04/27/2025 6:29 PM EST 10 mg oxyCODONE (ROXICODONE) immediate release tablet 10 mg 10 mg, Oral, Every 4 hours PRN, moderate pain (NRS 4-6) or if patient is non-communicative (CPOT 3-5), Starting on Janiya 04/28/25 at 1014, If on IV and PO pain medications, use IV if patient cannot tolerate oral. Given 04/29/2025 5:21 PM EST 10 mg Given 04/29/2025 1:02 PM EST 10 mg Given 04/28/2025 9:07 PM EST 10 mg oxyCODONE (ROXICODONE) immediate release tablet 10 mg 10 mg, Oral, Every 4 hours PRN, severe pain (NRS 7-10) or if patient is non-communicative (CPOT 6-8), Starting on Fri04/29/25 at 1945, If on IV and PO pain medications, use IV if patient cannot tolerate oral. Given 04/30/2025 5:06 AM EST 10 mg Given 04/29/2025 10:55 PM EST 10 mg oxyCODONE (ROXICODONE) immediate release tablet 10 mg 10 mg, Oral, Every 4 hours PRN, moderate pain (NRS 4-6) or if patient is non-communicative (CPOT 3-5), Starting on 04/30/25 at 0949, If on IV and PO pain medications, use IV if patient cannot tolerate oral. oxyCODONE (ROXICODONE) immediate release tablet 15 mg 15 mg, Oral, Every 4 hours PRN, severe pain (NRS 7-10) or if patient is non-communicative (CPOT 6-8), Starting on 04/30/25 at 0949, If on IV and PO pain medications, use IV if patient cannot tolerate oral. Given 05/03/2025 3:50 PM EST 15 mg Given 05/03/2025 11:20 AM EST 15 mg Given 05/03/2025 7:38 AM EST 15 mg oxyCODONE (ROXICODONE) immediate release tablet 5 mg 5 mg, Oral, Every 4 hours PRN, severe pain (NRS 7-10) or if patient is non-communicative (CPOT 6-8), Starting on Fri04/20/25 at 1423, If on IV and PO pain medications, use IV if patient cannot tolerate oral. Given 04/21/2025 1:51 AM EDT 5 mg Given 04/20/2025 9:26 PM EDT 5 mg Given 04/20/2025 3:03 PM EDT 5 mg pantoprazole (PROTONIX) EC tablet 40 mg 40 mg, Oral, Daily6, First dose on Janiya 04/21/25 at 0600, Do Not Crush Given 04/22/2025 5:03 AM EDT 40 mg Given 04/21/2025 4:57 AM EDT 40 mg pantoprazole (PROTONIX) EC tablet 40 mg 40 mg, Oral, 2 times daily, First dose on 05/02/25 at 2100, Do Not Crush Given 05/03/2025 8:37 AM EST 40 mg Given 05/02/2025 9:12 PM EST 40 mg pantoprazole (PROTONIX) injection 40 mg 40 mg, Intravenous, Daily6, First dose on Fri04/19/25 at 0600, Dilute each 40 mg vial with 10 mL of Normal Saline Given 04/20/2025 5:32 AM EDT 40 mg Given 04/19/2025 6:25 AM EDT 40 mg pantoprazole (PROTONIX) injection 40 mg 40 mg, Intravenous, Two times a day, First dose (after last reorder) on 04/23/25 at 0800, Dilute each 40 mg vial with 10 mL of Normal Saline Given 05/02/2025 5:17 AM EST 40 mg Given 05/01/2025 5:28 PM EST 40 mg Given 05/01/2025 5:59 AM EST 40 mg pantoprazole (PROTONIX) injection 80 mg 80 mg, Intravenous, Once, On 04/23/25 at 0330, For 1 dose, Dilute each 40 mg vial with 10 mL of Normal Saline Given 04/23/2025 4:53 AM EDT 80 mg phenoL (SORE THROAT) 1.4 % spray SprA Mucous Membrane, Every 2 hour PRN, sore throat, Starting on Fri04/20/25 at 0506, Up to 5 sprays onto throat or affected area; keep in place for 15 seconds, then expectorate. Given 04/20/2025 8:40 AM EDT piperacillin-tazobactam (ZOSYN) 3.375 g in sodium chloride 0.9 % 100 mL [id number] IVPB 3.375 g, Intravenous, at 25 mL/hr, Every 8 hours, First dose (after last modification) on Fri04/25/25 at 1200, For 8 doses, Use [id number] Adapter - Mix Thoroughly Before Administration Rate/Dose Verify 04/27/2025 10:27 PM EST 25 mL/hr New Bag 04/27/2025 8:04 PM EST 3.375 g 25 mL/hr New Bag 04/27/2025 11:43 AM EST 3.375 g 25 mL/hr piperacillin-tazobactam (ZOSYN) 4.5 g in sodium chloride 0.9 % 100 mL [id number] 4.5 g, Intravenous, at 200 mL/hr, Once, On 04/23/25 at 1130, For 1 dose, Use [id number] Adapter - Mix Thoroughly Before Administration New Bag 04/23/2025 12:12 PM EDT 4.5 g 200 mL/hr piperacillin-tazobactam (ZOSYN) 4.5 g in sodium chloride 0.9 % 100 mL [id number] 4.5 g, Intravenous, at 25 mL/hr, Every 8 hours, First dose on Fri04/23/25 at 1930, Use [id number] Adapter - Mix Thoroughly Before Administration New Bag 04/25/2025 4:01 AM EST 4.5 g 25 mL/hr New Bag 04/24/2025 7:06 PM EST 4.5 g 25 mL/hr Rate/Dose Verify 04/24/2025 2:00 PM EST 25 mL/h r polyethylene glycol (MIRALAX) packet 17 g 17 g, Oral, Daily, First dose on Fri04/21/25 at 0730 Given 05/02/2025 8:43 AM EST 17 g Given 05/01/2025 8:57 AM EST 17 g Given 04/30/2025 8:42 AM EST 17 g polyethylene glycol (MIRALAX) packet 17 g 17 g, Oral, 2 times daily, First dose (after last modification) on Fri05/02/25 at 2100 Given 05/03/2025 8:41 AM EST 1 7 g Given 05/02/2025 9:13 PM EST 17 g potassium chloride (KCl)/Sterile water 50 mL 20 mEq/50 mL IVPB 20 mEq 20 mEq, Intravenous, Administer over 60 Minutes, Every hour, First dose on Fri04/19/25 at 0200, For 2 doses, Infuse via Central Line Only; infuse each bag (20 mEq) over 1 hour. Total dose is 40 mEq over 2 hours. MAX INFUSION RATE VIA CENTRAL LINE IS 20 mEq/hr (50 mL/hr). Cardiac monitoring required when infused at 20 mEq/hr. Rate/Dose Verify 04/19/2025 4:00 AM EDT 50 mL/hr New Bag 04/19/2025 3:29 AM EDT 20 mEq 50 mL/hr New Bag 04/19/2025 2:16 AM EDT 20 mEq 50 mL/hr potassium phosphate 30 mmol in sodium chloride 0.9 % 250 mL infusion 30 mmol, Intravenous, Administer over 6 Hours, at 41.7 mL/hr, Once, On Fri04/25/25 at 1300, For 1 dose, HIGH ALERT Peripheral Line Max Rate = 5 mMol/hr; Central Line Max Rate = 7.5 mMol/hr New Bag 04/25/2025 3:27 PM EST 30 mmol 41.7 mL/hr predniSONE (DELTASONE) tablet 20 mg 20 mg, Oral, Daily, First dose on 04/26/25 at 0900, Start daily PO dose on POD #8 Given 05/03/2025 8:37 AM EST 20 mg Given 05/02/2025 8:43 AM EST 20 mg Given 05/01/2025 8:56 AM EST 20 mg predniSONE (DELTASONE) tablet 25 mg 25 mg, Oral, Once, On 04/25/25 at 0900, For 1 dose, POD #7 Given 04/25/2025 7:58 AM EST 25 mg predniSONE (DELTASONE) tablet 30 mg 30 mg, Oral, Once, On 04/24/25 at 0900, For 1 dose, POD #6 Given 04/24/2025 8:15 AM EST 30 mg pregabalin (LYRICA) capsule 100 mg 100 mg, Oral, 2 times daily, First dose (after last modification) on 05/02/25 at 2100 Given 05/03/2025 8:37 AM EST 100 mg Given 05/02/2025 9:12 PM EST 100 mg pregabalin (LYRICA) capsule 75 mg 75 mg, Oral, 2 times daily, First dose on Janiya 04/28/25 at 2100 Given 05/02/2025 8:43 AM EST 75 mg Given 05/01/2025 9:40 PM EST 75 mg Given 05/01/2025 8:56 AM EST 75 mg propofol (DIPRIVAN) infusion 10 mg/mL ADS Med Starting on 04/23/25 at 0304, For 1 dose, Created by cabinet override Patient must have secured airway including mechanical ventilation propofol (DIPRIVAN) infusion 10 mg/mL Intravenous, at 0-8.5 mL/hr, Continuous, Starting on 04/18/25 at 1930, Do not administer through the same I.V. catheter with blood or plasma. Tubing and any unused portions of propofol vials should be discarded after 12 hours. If patient is paralyzed: Do not titrate - follow policy [id number]. Start infusion if unable to maintain goal RASS with fentanyl or other analgesic medications alone When propofol infusion is < 10 mcg/kg/min consider discontinuation of infusion. Post-SAT, refer to ABCDEF bundle guidelines regarding titration of analgesic and sedative infusions. Patient must have secured airway including mechanical ventilation, Is this patient's airway secure and mechanically ventilated? Yes, Initial starting rate: 10 mcg/kg/min, Titrate by: 2 - 20 mcg/kg/min, Titration interval: no more frequent than: 2 minutes, Clinical Indication: RASS (see goal target arousal level on storyboard), Contact Provider: if goal cannot be maintained at highest possible dose Rate/Dose Verify 04/18/2025 10:00 PM EDT 20 mcg/kg/min 8.5 mL/hr New Bag 04/18/2025 8:21 PM EDT 20 mcg/kg/min 8.5 mL/hr Rate/Dose Change 04/18/2025 8:16 PM EDT 2.354 mcg/kg/min 1 mL/hr propofol (DIPRIVAN) infusion 10 mg/mL Intravenous, at 0-9.1 mL/hr, Continuous, Starting on 04/23/25 at 0400, Do not administer through the same I.V. catheter with blood or plasma. Tubing and any unused portions of propofol vials should be discarded after 12 hours. If patient is paralyzed: Do not titrate - follow policy [id number]. Start infusion if unable to maintain goal RASS with fentanyl or other analgesic medications alone When propofol infusion is < 10 mcg/kg/min consider discontinuation of infusion. Post-SAT, refer to ABCDEF bundle guidelines regarding titration of analgesic and sedative infusions. Patient must have secured airway including mechanical ventilation, Is this patient's airway secure and mechanically ventilated? Yes, Initial starting rate: 10 mcg/kg/min, Titrate by: 2 - 20 mcg/kg/min, Titration interval: no more frequent than: 2 minutes, Clinical Indication: RASS (see goal target arousal level on storyboard), Contact Provider: if goal cannot be maintained at highest possible dose Rate/Dose Verify 04/23/2025 12:00 PM EDT 30 mcg/kg/min 13.6 mL/hr Rate/Dose Verify 04/23/2025 9:00 AM EDT 30 mcg/kg/min 13.6 mL/hr New Bag 04/23/2025 8:58 AM EDT 30 mcg/kg/min 13.6 mL/hr propofol (DIPRIVAN) infusion 10 mg/mL Intravenous, at 0-13.6 mL/hr, Continuous, Starting on 04/23/25 at 1230, Do not administer through the same I.V. catheter with blood or plasma. Tubing and any unused portions of propofol vials should be discarded after 12 hours. If patient is paralyzed: Do not titrate - follow policy [id number]. Start infusion if unable to maintain goal RASS with fentanyl or other analgesic medications alone When propofol infusion is < 10 mcg/kg/min consider discontinuation of infusion. Post-SAT, refer to ABCDEF bundle guidelines regarding titration of analgesic and sedative infusions. Patient must have secured airway including mechanical ventilation, Is this patient's airway secure and mechanically ventilated? Yes, Initial starting rate: 10 mcg/kg/min, Titrate by: Other (enter titration parameters in mcg/kg/min), Titration interval: no more frequent than: 2 minutes, Clinical Indication: RASS (see goal target arousal level on storyboard), Contact Provider: if goal cannot be maintained at highest possible dose Rate/Dose Verify 04/24/2025 7:00 AM EST 30 mcg/kg/min 13.6 mL/hr Restarted 04/24/2025 5:53 AM EST 30 mcg/kg/min 13.6 mL/hr Rate/Dose Change 04/24/2025 5:41 AM EST 30 mcg/kg/min 13.6 mL/hr propofol 10 mg/ml (DIPRIVAN) injection 60 mg 60 mg, Intravenous, Once, On 04/23/25 at 0730, For 1 dose Given 04/23/2025 7:37 AM EDT 60 mg 999 mL/hr rocuronium (ZEMURON) 10 mg/mL injection Starting on 04/23/25 at 0538, For 1 dose, Created by cabinet override HIGH ALERT MEDICATION rocuronium (ZEMURON) injection 76 mg 76 mg (rounded from 75.5 mg = 1 mg/kg 75.5 kg), Intravenous, Once, On 04/23/25 at 0600, For 1 dose, IV push is for emergencies only. HIGH ALERT MEDICATION Given 04/23/2025 7:32 AM EDT 50 mg S.M.O.G. enema (RECTAL USE ONLY) 400 mL, Rectal, Once, On Fri04/22/25 at 1100, For 1 dose, FOR RECTAL USE ONLY; NOT FOR ORAL USE Given 04/22/2025 12:00 PM EDT 400 mLs scopolamine (TRANSDERM-SCOP) (1 mg over 3 days) 1 patch 1 patch, Transdermal, Once, On Fri04/18/25 at 0700, For 1 dose, Place patch behind ear., Pre-op Patch Applied 04/18/2025 7:03 AM EDT 1 patch Behind Right Ear scopolamine (TRANSDERM-SCOP) (1 mg over 3 days) 1 patch 1 patch, Transdermal, Every 72 hours, First dose on Fri04/22/25 at 2000, On hold since 04/23/2025 at 0729 until manually unheld Patch Applied 04/22/2025 8:51 PM EDT 1 patch Behind Right Ear senna-docusate (SENNA-S) 8.6-50 mg per tablet 1 tablet 1 tablet, Oral, 2 times daily, First dose on Janiya 04/21/25 at 0900 Given 05/03/2025 8:37 AM EST 1 tablet Given 05/02/2025 9:12 PM EST 1 tablet Given 05/02/2025 8:43 AM EST 1 tablet simethicone (MYLICON) chewable tablet 80 mg 80 mg, Oral, 30 min after meals and bedtime, First dose on Fri04/22/25 at 2100, On hold since 04/23/2025 at 0729 until manually unheld Given 04/22/2025 8:08 PM EDT 80 mg sod phos di, mono-K phos mono (K-PHOS NEUTRAL) 250 mg tablet Tab 250 mg 250 mg, Per NG / OG tube, Once, On Fri04/25/25 at 1230, For 1 dose, Each 250 mg tablet of KPhos Neutral contains: Phosphorus = 8 mmol; Sodium = 13 mEq; Potassium = 1.1 mEq Given 04/25/2025 2:21 PM EST 250 mg sodium bicarbonate 1 mEq/mL (8.4 %) IV solution 50 mEq 50 mEq, Intravenous, Once, On 04/23/25 at 0500, For 1 dose Given 04/23/2025 5:51 AM EDT 50 mEq sodium chloride 0.9 % IV infusion 75 mL/hr, Intravenous, Continuous, Starting on 04/18/25 at 1900, Post-op Rate/Dose Verify 04/20/2025 6:03 AM EDT 75 mL/hr Restarted 04/20/2025 4:21 AM EDT 75 mL/hr Rate/Dose Verify 04/20/2025 1:52 AM EDT 75 mL/h r sodium chloride 0.9 % IV infusion 50 mL/hr, Intravenous, Continuous, Starting on 04/23/25 at 0930, Pre-procedure(GI) New Bag 04/23/2025 9:19 AM EDT 50 mL/hr 50 mL/hr sodium chloride 0.9 % IV infusion 75 mL/hr, Intravenous, Continuous, Starting on Fri04/23/25 at 0800, On hold since Fri04/26/2025 at 0027 until manually unheld New Bag 04/24/2025 1:03 AM EDT 75 mL/hr 75 mL/hr sodium chloride 0.9 % IV infusion 20 mL/hr, Intravenous, Continuous, Starting on 04/23/25 at 0830, For 12 hours, Normal Saline 0.9% run at KVO only during administration of blood products. New Bag 04/23/2025 9:20 AM EDT 20 mL/hr 20 mL/hr sodium chloride 0.9 % IV infusion 20 mL/hr, Intravenous, Continuous, Starting on Fri05/03/25 at 0830, For 12 hours, Normal Saline 0.9% run at KVO only during administration of blood products. New Bag 05/03/2025 10:56 AM EST 20 mL/hr 20 mL/hr sodium chloride 3 % nebulizer solution 4 mL 4 mL, Nebulization, RT 2 times daily, First dose (after last modification) on 04/24/25 at 0900 Given 04/24/2025 8:49 AM EST 4 mLs sodium phosphate 20 mmol in sodium chloride 0.9 % 250 mL infusion 20 mmol, Intravenous, Administer over 6 Hours, at 41.7 mL/hr, Once, On Fri04/26/25 at 1730, For 1 dose, HIGH ALERT Peripheral Line Max Rate = 5 mMol/hr; Central Line Max Rate = 7.5 mMol/hr New Bag 04/26/2025 5:56 PM EST 20 mmol 41.7 mL/hr sodium phosphate 20 mmol in sodium chloride 0.9 % 250 mL infusion 20 mmol, Intravenous, Administer over 6 Hours, at 41.7 mL/hr, Once, On Fri04/27/25 at 0530, For 1 dose, HIGH ALERT Peripheral Line Max Rate = 5 mMol/hr; Central Line Max Rate = 7.5 mMol/hr New Bag 04/27/2025 5:59 AM EST 20 mmol 41.7 mL/hr sodium phosphate 25 mmol in dextrose 5% in water (D5W) 250 mL IVPB Intravenous, at 50 mL/hr, Once, On Fri04/22/25 at 1300, For 1 dose, HIGH ALERT ADMINISTER VIA PERIPHERAL LINE. INFUSION RATE NOT TO EXCEED 5MMOL/HR. New 04/22/2025 1:58 PM EDT 25 mmol 50 mL/hr sodium phosphate 30 mmol in sodium chloride 0.9 % 250 mL infusion 30 mmol, Intravenous, Administer over 6 Hours, at 41.7 mL/hr, Once, On Fri04/26/25 at 0730, For 1 dose, HIGH ALERT Peripheral Line Max Rate = 5 mMol/hr; Central Line Max Rate = 7.5 mMol/hr Rate/Dose Verify 04/26/2025 11:22 AM EST 41.7 mL/hr 04/26/2025 7:55 AM EST 30 mmol 41.7 mL/hr succinylcholine (QUELICIN) 20 mg/mL injection Starting on Fri04/23/25 at 0242, For 1 dose, Created by cabinet override [facility] Telemetry Monitoring Required, do not discontinue CMU. succinylcholine (QUELICIN) injection 76 mg 76 mg (rounded from 75.5 mg = 1 mg/kg 75.5 kg), Intravenous, Once, On Fri04/23/25 at 0300, For 1 dose, To bedside [facility]U Telemetry Monitoring Required, do not discontinue [facility]. Given 04/23/2025 2:43 AM EDT 76 mg sulfamethoxazole-trimethoprim (BACTRIM) 200-40 mg/5 mL suspension 10 mL 10 mL (80 mg of trimethoprim), Oral, Daily, First dose on Fri04/26/25 at 0900 Given 04/28/2025 8:31 AM EST 10 mLs Given 04/27/2025 7:37 AM EST 10 mLs Given 04/26/2025 8:08 AM EST 10 mLs sulfamethoxazole-trimethoprim (BACTRIM) 400-80 mg per tablet 1 tablet 1 tablet, Oral, Daily, First dose on Fri04/20/25 at 1430 Given 04/25/2025 7:58 AM EST 1 tablet Given 04/24/2025 8:13 AM EST 1 tablet Given 04/22/2025 9:33 AM EDT 1 tablet sulfamethoxazole-trimethoprim (BACTRIM) 400-80 mg per tablet 1 tablet 1 tablet, Oral, Daily, First dose on Fri04/29/25 at 0900 Given 05/03/2025 8:37 AM EST 1 tablet Given 05/02/2025 8:43 AM EST 1 tablet Given 05/01/2025 8:56 AM EST 1 tablet tacrolimus (PROGRAF) capsule 1 mg 1 mg, Oral, 2 times daily, First dose (after last modification) on Fri04/21/25 at 2100, LEVEL 2 HAZARDOUS MEDICATION, On hold since Fri04/22/2025 at 1207 until manually unheld Given 04/22/2025 9:32 AM EDT 1 m g Given 04/21/2025 8:27 PM EDT 1 mg tacrolimus (PROGRAF) capsule 1 mg 1 mg, Oral, Two times a day, First dose (after last modification) on 04/30/25 at 1900, LEVEL 2 HAZARDOUS MEDICATION Given 05/01/2025 5:59 AM EST 1 mg Given 04/30/2025 6:31 PM EST 1 mg tacrolimus (PROGRAF) capsule 2 mg 2 mg, Oral, 2 times daily, First dose on Fri04/19/25 at 2100, LEVEL 2 HAZARDOUS MEDICATION Given 04/21/2025 9: 29 AM EDT 2 mg Given 04/20/2025 8:49 PM EDT 2 mg Given 04/20/2025 8:23 AM EDT 2 mg tacrolimus (PROGRAF) capsule 2 mg 2 mg, Oral, Two times a day, First dose (after last modification) on 05/01/25 at 1900, LEVEL 2 HAZARDOUS MEDICATION Given 05/02/2025 6:02 AM EST 2 mg Given 05/01/2025 6:10 PM EST 2 mg tacrolimus (PROGRAF) capsule 2 mg 2 mg, Oral, Daily7, First dose (after last modification) on Fri05/04/25 at 0700, LEVEL 2 HAZARDOUS MEDICATION tacrolimus (PROGRAF) capsule 2.5 mg 2.5 mg, Oral, Two times a day, First dose (after last modification) on Fri05/02/25 at 1900, LEVEL 2 HAZARDOUS MEDICATION Given 05/03/2025 6:11 AM EST 2.5 mg Given 05/02/2025 6:10 PM EST 2.5 mg tacrolimus (PROGRAF) capsule 3 mg 3 mg, Oral, Two times a day, First dose on Fri04/27/25 at 1900, LEVEL 2 HAZARDOUS MEDICATION, On hold since Fri04/28/2025 at 1041 until manually unheld Given 04/28/2025 6:31 AM EST 3 mg Given 04/27/2025 5:40 PM EST 3 mg tacrolimus (PROGRAF) capsule 3 mg 3 mg, Oral, Daily19, First dose on Fri05/03/25 at 1900, LEVEL 2 HAZARDOUS MEDICATION tacrolimus (PROGRAF) sublingual capsule 0.5 mg 0.5 mg, Sublingual, 2 times daily, First dose (after last modification) on Fri04/23/25 at 2100, SUBLINGUAL Administration: Please gown and double glove for this route of administration. Carefully open the capsule(s) and administer the contents sublingually. This Handling Hazardous Medication Policy exception is noted in Appendix A. Note: 1 mg sublingual tacrolimus = 2 mg oral tacrolimus LEVEL 2 HAZARDOUS MEDICATION Given 04/25/2025 7:58 AM EST 0. 5 mg Given 04/24/2025 8:40 PM EST 0.5 mg Given 04/24/2025 8:16 AM EST 0.5 mg tacrolimus (PROGRAF) sublingual capsule 1 mg 1 mg, Sublingual, 2 times daily, First dose on Fri04/19/25 at 0900, SUBLINGUAL Administration: Please gown and double glove for this route of administration. Carefully open the capsule(s) and administer the contents sublingually. This Handling Hazardous Medication Policy exception is noted in Appendix A. Note: 1 mg sublingual tacrolimus = 2 mg oral tacrolimus LEVEL 2 HAZARDOUS MEDICATION Given 04/19/2025 8:30 AM EDT 1 mg tacrolimus (PROGRAF) sublingual capsule 1 mg 1 mg, Sublingual, 2 times daily, First dose (after last modification) on Fri04/25/25 at 2100, SUBLINGUAL Administration: Please gown and double glove for this route of administration. Carefully open the capsule(s) and administer the contents sublingually. This Handling Hazardous Medication Policy exception is noted in Appendix A. Note: 1 mg sublingual tacrolimus = 2 mg oral tacrolimus LEVEL 2 HAZARDOUS MEDICATION Given 04/26/2025 8:17 AM EST 1 mg Given 04/25/2025 8:06 PM EST 1 mg tacrolimus (PROGRAF) sublingual capsule 1 mg 1 mg, Sublingual, Daily7, First dose (after last modification) on Fri04/27/25 at 0700, SUBLINGUAL Administration: Please gown and double glove for this route of administration. Carefully open the capsule(s) and administer the contents sublingually. This Handling Hazardous Medication Policy exception is noted in Appendix A. Note: 1 mg sublingual tacrolimus = 2 mg oral tacrolimus LEVEL 2 HAZARDOUS MEDICATION Given 04/27/2025 6:29 AM EST 1 mg tacrolimus (PROGRAF) sublingual capsule 1.5 mg 1.5 mg, Sublingual, Daily19, First dose on Fri04/26/25 at 1900, SUBLINGUAL Administration: Please gown and double glove for this route of administration. Carefully open the capsule(s) and administer the contents sublingually. This Handling Hazardous Medication Policy exception is noted in Appendix A. Note: 1 mg sublingual tacrolimus = 2 mg oral tacrolimus LEVEL 2 HAZARDOUS MEDICATION Given 04/26/2025 6:07 PM EST 1.5 mg TPN ADULT (CLINIMIX) Intravenous, at 42 mL/hr, continuous TPN, Starting on Fri04/27/25 at 1700, For 1 day, Use a 1.2 micron filter Administered via Central line only Note: There will be remainder in bag to discard when TPN infusion complete. HIGH ALERT MEDICATION Handoff 04/28/2025 7:46 AM EST 42 mL/hr Handoff 04/27/2025 11:19 PM EST 42 mL/hr Rate/Dose Verify 04/27/2025 10:27 PM EST 42 mL/ hr TPN ADULT (CLINIMIX) Intravenous, at 62 mL/hr, continuous TPN, Starting on Fri04/28/25 at 1700, For 1 day, Use a 1.2 micron filter Administered via Central line only Note: There will be remainder in bag to discard when TPN infusion complete. HIGH ALERT MEDICATION Restarted 04/28/2025 10:46 PM EST 62 m L/hr Handoff 04/28/2025 7:03 PM EST 62 mL/hr New Bag 04/28/2025 5:26 PM EST 62 mL/hr traZODone (DESYREL) half tablet 25 mg 25 mg, Oral, At Bedtime (2099), First dose on Fri04/25/25 at 0030 Given 04/24/2025 11:55 PM EST 25 mg traZODone (DESYREL) half tablet 50 mg 50 mg, Oral, At Bedtime (2099), First dose (after last modification) on Fri04/25/25 at 2100 Given 05/02/2025 9:11 PM EST 50 mg Given 05/01/2025 9:40 PM EST 50 mg Given 04/30/2025 9:13 PM EST 50 mg ursodioL (ACTIGALL) capsule 300 mg 300 mg, Oral, 2 times daily, First dose on Fri05/02/25 at 1100 Given 05/03/2025 8:37 AM EST 300 mg Given 05/02/2025 9:12 PM EST 300 mg Given 05/02/2025 12:17 PM EST 300 mg valGANciclovir (VALCYTE) 50 mg/mL oral solution 450 mg 450 mg, Per NG / OG tube, Daily, First dose on Fri04/26/25 at 0900, LEVEL 2 HAZARDOUS MEDICATION Given 04/26/2025 8:08 AM EST 450 mg valGANciclovir (VALCYTE) 50 mg/mL oral solution 450 mg 450 mg, Oral, Daily, First dose (after last modification) on Fri04/27/25 at 0900, LEVEL 2 HAZARDOUS MEDICATION Given 04/28/2025 8:31 AM EST 450 mg Given 04/27/2025 11:03 AM EST 450 mg valGANciclovir (VALCYTE) tablet 450 mg 450 mg, Oral, Daily, First dose on Fri04/21/25 at 0900, LEVEL 2 HAZARDOUS MEDICATION Given 04/25/2025 7:58 AM EST 450 mg Given 04/24/2025 8:13 AM EST 450 mg Given 04/22/2025 9:32 AM EDT 450 mg valGANciclovir (VALCYTE) tablet 450 mg 450 mg, Oral, Daily, First dose on Fri04/29/25 at 0900, LEVEL 2 HAZARDOUS MEDICATION Given 05/03/2025 8:3 7 AM EST 450 mg Given 05/02/2025 8:43 AM EST 450 mg Given 05/01/2025 8:56 AM EST 450 mg vasopressin (VASOSTRICT) 40 units in sodium chloride 0.9% 100 mL infusion Intravenous, at 4.5 mL/hr, Continuous, Starting on Fri04/18/25 at 1930, CENTRAL LINE PREFERRED New Bag 04/18/2025 7:10 PM EDT 0.03 Units/min 4.5 mL/hr documented in this encounter Active and Recently Administered Medications Times are shown in EST. Scheduled Medication Order 05/01/2025 05/02/2025 05/03/2025 acetaminophen (TYLENOL) tablet 975 mg 975 mg, Oral, Every 8 hours, First dose on Fri04/27/25 at 1430 0600 (Given - Provider: Marilee Ramsey RN)1523 (Given - Provider: Jc Terrazas RN) 0054 (Given - Provider: Tisha Rhoades RN - Comment: in MRI at due time)0843 (Given - Provider: Makenzie Canseco RN)1409 (Given - Provider: Makenzie Canseco RN)2219 (Given - Provider: Tisha Rhoades, KONSTANTIN) 0530 (Given - Provider: Tisha Rhoades RN)1316 (Given - Provider: Julianne Costello RN) albumin human 25% (COMPLETED)(Linked Group 1) 12.5 g, Intravenous, Every 30 min, First dose on Fri05/01/25 at 0830, For 2 doses, In Emergencies, may administer as rapidly as needed to improve clinical status., Select indication for use: Nephrotic Syndrome, at 100 mL/hr 0855 (New Bag - Provider: Jc Terrazas RN)0930 (New Bag - Provider: Jc Terrazas RN) albumin human 25% (COMPLETED) 50 mL, Intravenous, Every 30 min, First dose on Fri05/02/25 at 1100, For 2 doses, In Emergencies, may administer as rapidly as needed to improve clinical status., Select indication for use: Hepatic Resection/Liver Transplantation, at 100 mL/hr 1142 (New Bag - Provider: Makenzie Canseco RN)1215 (New Bag - Provider: Makenzie Canseco RN) aspirin chewable tablet 81 mg 81 mg, Oral, Daily with breakfast, First dose on Fri04/19/25 at 0800 0856 (Given - Provider: Jc Terrazas RN) 0843 (Given - Provider: Makenzie Canseco RN) 0837 (Given - Provider: Julianne Costello, KONSTANTIN) diphenhydrAMINE (BENADRYL) capsule 25 mg (COMPLETED) 25 mg, Oral, Once, On Fri05/01/25 at 0230, For 1 dose 0228 (Given - Provider: Marilee Ramsey RN) fluconazole (DIFLUCAN) tablet 200 mg 200 mg, Oral, Daily, First dose on Fri04/29/25 at 0900, For 25 doses, DO NOT CRUSH OR CHEW. 0856 (Given - Provider: Jc Terrazas RN) 0843 (Given - Provider: Makenzie Canseco RN) 0837 (Given - Provider: Julianne Costello, KONSTANTIN) furosemide (LASIX) injection 20 mg (COMPLETED) 20 mg, Intravenous, Once, On Fri05/02/25 at 1300, For 1 dose, Give doses of 100mg or less over 5 minutes. For doses over 100mg, give at rate of up to 20mg/min. 1351 (Given - Provider: Makenzie Canseco RN) furosemide (LASIX) injection 40 mg (COMPLETED)(Linked Group 1) 40 mg, Intravenous, Once, On Fri05/01/25 at 0930, For 1 dose, Give doses of 100mg or less over 5 minutes. For doses over 100mg, give at rate of up to 20mg/min. 1013 (Given - Provider: Jc Terrazas RN) heparin (porcine) injection 5,000 Units 5,000 Units, Subcutaneous, Every 8 hours scheduled (3 times per day), First dose on Fri04/18/25 at 1900 0347 (Given - Provider: Marilee Ramsey RN)1303 (Given - Provider: Jc Terrazas RN)2140 (Given - Provider: Tisha Rhoades RN) 0517 (Given - Provider: Tisha Rhoades RN)1217 (Given - Provider: Makenzie Canseco RN)2112 (Given - Provider: Tisha Rhoades RN) 0530 (Given - Provider: Tisha Rhoades RN)1316 (Given - Provider: Julianne Costello RN) insulin lispro (humaLOG/ADMELOG) injection 0-12 Units 0-12 Units, Subcutaneous, 3 times daily before meals, First dose on Fri04/29/25 at 1330, HIGH ALERT MEDICATION 0737 (Not Given - Provider: Jc Terrazas RN - Reason: Order parameters not met)1304 (Not Given - Provider: Jc Terrazas RN - Reason: Order parameters not met)1804 (Not Given - Provider: Jc Terrazas RN - Reason: Order parameters not met) 0952 (Not Given - Provider: Makenzie Canseco RN - Reason: Order parameters not met)1320 (Not Given - Provider: Makenzie Canseco RN - Reason: Order parameters not met)1713 (Given - Provider: Makenzie Canseco RN) 0807 (Not Given - Provider: Julianne Costello RN - Reason: Order parameters not met)1317 (Given - Provider: Julianne Costello RN) lidocaine (LIDODERM) 5 % 2 patch 2 patch, Transdermal, Daily, First dose (after last modification) on Fri04/24/25 at 1730, LEAVE PATCH ON FOR 12 HOURS,THEN REMOVE FOR 12 HOURS. 0857 (Patch Removed - Provider: Jc Terrazas RN) 0215 (Patch Applied - Provider: Tisha Rhoades RN - Comment: back)1408 (Patch Removed - Provider: Makenzie Canseco RN)1810 (Patch Applied - Provider: Makenzie Canseco RN) 0549 (Patch Removed - Provider: Tisha Rhoades RN) magnesium oxide (MAG-OX) tablet 400 mg 400 mg, Oral, 2 times daily, First dose on Fri05/03/25 at 1030, For 4 doses 1120 (Given - Provider: Julianne Sattorova, RN) melatonin tablet Tab 3 mg 3 mg, Oral, At Bedtime (2099), First dose on Fri04/24/25 at 2100, FOR INSOMNIA 53 (Given - Provider: Tisha Rhoades RN - Comment: in MRI at due time)2111 (Given - Provider: Tisha Rhoades RN) methocarbamoL (ROBAXIN) tablet 1,000 mg 1,000 mg, Oral, 3 times daily, First dose (after last modification) on Janiya 04/28/25 at 1300 0856 (Given - Provider: Jc Terrazas RN)1303 (Given - Provider: Jc Terrazas RN)2139 (Given - Provider: Tisha Rhoades RN) 0843 (Given - Provider: Makenzie Canseco RN)1216 (Given - Provider: Makenzie Canseco RN)2111 (Given - Provider: Tisha Rhoades RN) 0837 (Given - Provider: Julianne Costello RN)131 (Given - Provider: Julianne Costello RN) mycophenolate (CELLCEPT) capsule 500 mg 500 mg, Oral, 2 times daily, First dose on Janiya 04/28/25 at 2100, LEVEL 2 HAZARDOUS MEDICATION 0856 (Given - Provider: Jc Terrazas RN)2138 (Given - Provider: Tisha Rhoades RN) 0843 (Given - Provider: Makenzie Canseco RN)2111 (Given - Provider: Tisha Rhoades RN) 0837 (Given - Provider: Julianne Costello RN) pantoprazole (PROTONIX) EC tablet 40 mg 40 mg, Oral, 2 times daily, First dose on Fri05/02/25 at 2100, Do Not Crush 2111 (Given - Provider: Tisha Rhoades RN) 0837 (Given - Provider: Julianne Costello RN) pantoprazole (PROTONIX) injection 40 mg (CANCELED) 40 mg, Intravenous, Two times a day, First dose (after last reorder) on 04/23/25 at 0800, Dilute each 40 mg vial with 10 mL of Normal Saline 0559 (Given - Provider: Marilee Ramsey RN)1728 (Given - Provider: Jc Terrazas RN) 0517 (Given - Provider: Tisha Rhoades RN) polyethylene glycol (MIRALAX) packet 17 g (CANCELED) 17 g, Oral, Daily, First dose on Fri04/21/25 at 0730 0857 (Given - Provider: Jc Terrazas RN) 0843 (Given - Provider: Makenzie Canseco RN) polyethylene glycol (MIRALAX) packet 17 g 17 g, Oral, 2 times daily, First dose (after last modification) on Fri05/02/25 at 2100 2113 (Given - Provider: Tisha Rhoades RN) 0841 (Given - Provider: Julianne Costello, KONSTANTIN) predniSONE (DELTASONE) tablet 20 mg(Linked Group 2) 20 mg, Oral, Daily, First dose on Fri04/26/25 at 0900, Start daily PO dose on POD #8 0856 (Given - Provider: Jc Terrazas RN) 0843 (Given - Provider: Makenzie Canseco RN) 0837 (Given - Provider: Julianne Costello, KONSTANTIN) pregabalin (LYRICA) capsule 100 mg 100 mg, Oral, 2 times daily, First dose (after last modification) on Fri05/02/25 at 2100 2112 (Given - Provider: Tisha Rhoades RN) 0837 (Given - Provider: Julianne Costello, KONSTANTIN) pregabalin (LYRICA) capsule 75 mg (CANCELED) 75 mg, Oral, 2 times daily, First dose on Fri04/28/25 at 2100 0856 (Given - Provider: Jc Terrazas RN)2140 (Given - Provider: Tisha Rhoades RN) 0843 (Given - Provider: Makenzie Canseco RN) scopolamine (TRANSDERM-SCOP) (1 mg over 3 days) 1 patch 1 patch, Transdermal, Every 72 hours, First dose on Fri04/22/25 at 2000, On hold since Fri04/23/2025 at 0729 until manually unheld 1999 (Automatically Held - Provider: Julius Becerra MD) 2022 (Unheld by provider - Provider: Automatic Discharge Provider) senna-docusate (SENNA-S) 8.6-50 mg per tablet 1 tablet 1 tablet, Oral, 2 times daily, First dose on Fri04/21/25 at 0900 0856 (Given - Provider: Jc Terrazas RN)2140 (Given - Provider: Tisha Rhoades, KONSTANTIN) 0843 (Given - Provider: Makenzie Canseco RN)211 (Given - Provider: Tisha Rhoades RN) 0837 (Given - Provider: Julianne Costello, KONSTANTIN) simethicone (MYLICON) chewable tablet 80 mg 80 mg, Oral, 30 min after meals and bedtime, First dose on Fri04/22/25 at 2100, On hold since 04/23/2025 at 0729 until manually unheld 0830 (Canceled Entry - Provider: Jc Terrazas RN)1230 (Canceled Entry - Provider: Jc Terrazas RN)1730 (Canceled Entry - Provider: Jc Terrazas RN)2100 (Automatically Held - Provider: Julius Becerra MD) 0830 (Automatically Held - Provider: Julius Becerra MD)1230 (Automatically Held - Provider: Julius Becerra MD)1730 (Automatically Held - Provider: Julius Becerra MD)2100 (Automatically Held - Provider: Julius Becerra MD) 0830 (Automatically Held - Provider: Julius Becerra MD)1230 (Automatically Held - Provider: Julius Becerra MD)2022 (Unheld by provider - Provider: Automatic Discharge Provider) sulfamethoxazole-trime thoprim (BACTRIM) 400-80 mg per tablet 1 tablet 1 tablet, Oral, Daily, First dose on Fri04/29/25 at 0900 0856 (Given - Provider: Jc Terrazas RN) 0843 (Given - Provider: Makenzie Canseco RN) 0837 (Given - Provider: Julianne Costello RN) tacrolimus (PROGRAF) capsule 1 mg (CANCELED) 1 mg, Oral, Two times a day, First dose (after last modification) on 04/30/25 at 1900, LEVEL 2 HAZARDOUS MEDICATION 0559 (Given - Provider: Marilee Ramsey RN) tacrolimus (PROGRAF) capsule 2 mg (CANCELED) 2 mg, Oral, Two times a day, First dose (after last modification) on 05/01/25 at 1900, LEVEL 2 HAZARDOUS MEDICATION 1810 (Given - Provider: Jc Terrazas RN) 0602 (Given - Provider: Tisha Rhoades RN) tacrolimus (PROGRAF) capsule 2 mg 2 mg, Oral, Daily7, First dose (after last modification) on Fri05/04/25 at 0700, LEVEL 2 HAZARDOUS MEDICATION tacrolimus (PROGRAF) capsule 2.5 mg (CANCELED) 2.5 mg, Oral, Two times a day, First dose (after last modification) on Fri05/02/25 at 1900, LEVEL 2 HAZARDOUS MEDICATION 1810 (Given - Provider: Makenzie Canseco RN) 0611 (Given - Provider: Tisha Rhoades RN) tacrolimus (PROGRAF) capsule 3 mg 3 mg, Oral, Daily19, First dose on Fri05/03/25 at 1900, LEVEL 2 HAZARDOUS MEDICATION traZODone (DESYREL) half tablet 50 mg 50 mg, Oral, At Bedtime (2100), First dose (after last modification) on Fri04/25/25 at 2100 2140 (Given - Provider: Tisha Rhoades RN) 2111 (Given - Provider: Tisha Rhoades RN) ursodioL (ACTIGALL) capsule 300 mg 300 mg, Oral, 2 times daily, First dose on Fri05/02/25 at 1100 1217 (Given - Provider: Makenzie Canseco RN)2112 (Given - Provider: Tisha Rhoades RN) 0837 (Given - Provider: Julianne Costello RN) valGANciclovir (VALCYTE) tablet 450 mg 450 mg, Oral, Daily, First dose on Fri04/29/25 at 0900, LEVEL 2 HAZARDOUS MEDICATION 0856 (Given - Provider: Jc Terrazas RN) 0843 (Given - Provider: Makenzie Canseco RN) 0837 (Given - Provider: Julianne Costello RN) Continuous Medication Order 05/01/2025 05/02/2025 05/03/2025 sodium chloride 0.9 % IV infusion 20 mL/hr, Intravenous, Continuous, Starting on Fri05/03/25 at 0830, For 12 hours, Normal Saline 0.9% run at KVO only during administration of blood products. 1056 (New Bag - Prov ider: Julianne Costello RN) PRN Medication Order 05/01/2025 05/02/2025 05/03/2025 albuterol ([id number] TOLIN) 90 mcg/actuation inhaler 2 puff 2 puff, Inhalation, RT every 6 hours PRN, Wheezing, Shortness of Breath, Starting on Fri04/20/25 at 0936, SHAKE WELL dextrose 10%-water (D10W) IV soln(Linked Group 3) 12.5 g, Intravenous, Every 15 min PRN, Low blood sugar, for glucose < 70 and alert but can not be corrected, orally or via feeding tube, Starting on Fri04/18/25 at 1927, Recheck blood sugar in 15 minutes and repeat treatment if glucose still < 70. For Smart Pump: Set volume to be infused; 125 ml for 12.5 grams or 250 mL for 25 grams. dextrose 10%-water (D10W) IV soln(Linked Group 3) 25 g, Intravenous, Every 15 min PRN, Low blood sugar, for glucose < 70 and not alert, Starting on Fri04/18/25 at 1927, Recheck glucose in 15 minutes and repeat treatment if glucose still < 70. For Smart Pump: Set volume to be infused; 125 ml for 12.5 grams or 250 mL for 25 grams. gadobutrol (GADAVIST) 1 mmol/1 mL IV syringe 6.5 mL (COMPLETED) 6.5 mL (rounded from 6.64 mL = 0.1 mL/kg 66.4 kg), Intravenous, IMG once as needed, contrast, Starting on Fri05/02/25 at 0116, For 1 dose 1134 (Given - Provider: Maggie Smith) hydrOXYzine HCL (ATARAX) 10 mg/5 mL syrup 10 mg (CANCELED) 10 mg, Oral, 3 times daily PRN, Other, Starting on 04/30/25 at 2203 0623 (Given - Provider: Marilee Ramsey, KONSTANTIN) hydrOXYzine HCL (ATARAX) 10 mg/5 mL syrup 25 mg 25 mg, Oral, 3 times daily PRN, Other, Starting on 05/01/25 at 0755 0054 (Given - Provider: Tisha Rhoades, KONSTANTIN) ipratropium-albuteroL (DUO-NEB) 0.5 mg-3 mg(2.5 mg base)/3 mL nebulizer solution 3 mL 3 mL, Nebulization, RT every 4 hours PRN, Wheezing, Starting on 04/23/25 at 0303 ondansetron (ZOFRAN) injection 4 mg 4 mg, Intravenous, Every 6 hours PRN, Nausea and/or Vomiting, Starting on Fri04/19/25 at 1600 oxyCODONE (ROXICODONE) immediate release tablet 10 mg(Linked Group 4) 10 mg, Oral, Every 4 hours PRN, moderate pain (NRS 4-6) or if patient is non-communicative (CPOT 3-5), Starting on 04/30/25 at 0949, If on IV and PO pain medications, use IV if patient cannot tolerate oral. 0346 (See Alternative - Provider: Marilee Ramsey RN)0902 (See Alternative - Provider: Jc Terrazas RN)1303 (See Alternative - Provider: Jc Terrazas RN)[phone] (See Alternative - Provider: Jc Terrazas RN)2145 (See Alternative - Provider: Tisha Rhoades RN) 0202 (See Alternative - Provider: Tisha Rhoades RN)0603 (See Alternative - Provider: Tisha Rhoades RN)1017 (See Alternative - Provider: Makenzie Canseco RN)1410 (See Alternative - Provider: Makenzie Canseco RN)1810 (See Alternative - Provider: Makenzie Canseco RN)2219 (See Alternative - Provider: Tisha Rhoades RN) 0302 (See Alternative - Provider: Tisha Rhoades RN)0738 (See Alternative - Provider: Tisha Rhoades, KONSTANTIN)1120 (See Alternative - Provider: Julianne Costello RN)1550 (See Alternative - Provider: Julianne Costello RN) oxyCODONE (ROXICODONE) immediate release tablet 15 mg(Linked Group 4) 15 mg, Oral, Every 4 hours PRN, severe pain (NRS 7-10) or if patient is non-communicative (CPOT 6-8), Starting on 04/30/25 at 0949, If on IV and PO pain medications, use IV if patient cannot tolerate oral. 0346 (Given - Provider: Marilee Ramsey RN)0902 (Given - Provider: Jc Terrazas RN)1303 (Given - Provider: Jc Terrazas RN)1728 (Given - Provider: Jc Terrazas RN)2145 (Given - Provider: Tisha Rhoades, KONSTANTIN) 0202 (Given - Provider: Tisha Rhoades, KONSTANTIN)0603 (Given - Provider: Tisha Rhoades RN)1017 (Given - Provider: Makenzie Canseco RN)1410 (Given - Provider: Makenzie Canseco, RN)1810 (Given - Provider: Makenzie Canseco RN)2219 (Given - Provider: Tisha Rhoades RN) 0302 (Given - Provider: Tisha Rhoades RN)0738 (Given - Provider: Tisha Rhoades, KONSTANTIN)1120 (Given - Provider: Julianne Costello, KONSTANTIN)1550 (Given - Provider: Julianne Costello RN) phenoL (SORE THROAT) 1.4 % spray SprA Mucous Membrane, Every 2 hour PRN, sore throat, Starting on Fri04/20/25 at 0506, Up to 5 sprays onto throat or affected area; keep in place for 15 seconds, then expectorate. Linked Groups Order Group 1: albumin human 25% (COMPLETED)Jump to med 12.5 g, Intravenous, Every 30 min, First dose on Fri05/01/25 at 0830, For 2 doses, In Emergencies, may administer as rapidly as needed to improve clinical status., Select indication for use: Nephrotic Syndrome, at 100 mL/hr Followed by furosemide (LASIX) injection 40 mg (COMPLETED)Jump to med 40 mg, Intravenous, Once, On Fri05/01/25 at 0930, For 1 dose, Give doses of 100mg or less over 5 minutes. For doses over 100mg, give at rate of up to 20mg/min. Group 2: methylPREDNISolone sodium succinate (SOLU-medrol) 250 mg in sodium chloride 0.9 % 100 mL IVPB (COMPLETED) 250 mg, Intravenous, at 200 mL/hr, Once, On Fri04/19/25 at 0900, For 1 dose, POD #1 - Dose, Administer over 30 Minutes, Post-op Followed by methylPREDNISolone sod suc(PF) (SOLU-medrol) SolR 125 mg (COMPLETED) 125 mg, Intravenous, Once, On Fri04/20/25 at 0900, For 1 dose, POD #2 - Dose. Mix until dissolved and use immediately. MIX THOROUGHLY PRIOR TO ADMINISTRATION., Post-op Followed by methylPREDNISolone sod suc(PF) (SOLU-medrol) SolR 60 mg (COMPLETED) 60 mg, Intravenous, Once, On Fri04/21/25 at 0900, For 1 dose, POD # 3 - Dose. Mix until dissolved and use immediately. MIX THOROUGHLY PRIOR TO ADMINISTRATION. Followed by methylPREDNISolone sod suc(PF) (SOLU-medrol) SolR 50 mg (COMPLETED) 50 mg, Intravenous, Once, On Fri04/22/25 at 0900, For 1 dose, POD #4 - Dose. Mix until dissolved and use immediately. MIX THOROUGHLY PRIOR TO ADMINISTRATION. Followed by predniSONE (DELTASONE) tablet 40 mg () 40 mg, Oral, Once, On Fri04/23/25 at 0900, For 1 dose, POD #5 Followed by predniSONE (DELTASONE) tablet 30 mg (COMPLETED) 30 mg, Oral, Once, On Fri04/24/25 at 0900, For 1 dose, POD #6 Followed by predniSONE (DELTASONE) tablet 25 mg (COMPLETED) 25 mg, Oral, Once, On Fri04/25/25 at 0900, For 1 dose, POD #7 Followed by predniSONE (DELTASONE) tablet 20 mgJump to med 20 mg, Oral, Daily, First dose on Fri04/26/25 at 0900, Start daily PO dose on POD #8 Group 3: dextrose 10%-water (D10W) IV solnJump to med 12.5 g, Intravenous, Every 15 min PRN, Low blood sugar, for glucose < 70 and alert but can not be corrected, orally or via feeding tube, Starting on Fri04/18/25 at 1927, Recheck blood sugar in 15 minutes and repeat treatment if glucose still < 70. For Smart Pump: Set volume to be infused; 125 ml for 12.5 grams or 250 mL for 25 grams. Or dextrose 10%-water (D10W) IV solnJump to med 25 g, Intravenous, Every 15 min PRN, Low blood sugar, for glucose < 70 and not alert, Starting on Fri04/18/25 at 1927, Recheck glucose in 15 minutes and repeat treatment if glucose still < 70. For Smart Pump: Set volume to be infused; 125 ml for 12.5 grams or 250 mL for 25 grams. Group 4: oxyCODONE (ROXICODONE) immediate release tablet 10 mgJump to med 10 mg, Oral, Every 4 hours PRN, moderate pain (NRS 4-6) or if patient is non-communicative (CPOT 3-5), Starting on 04/30/25 at 0949, If on IV and PO pain medications, use IV if patient cannot tolerate oral. Or oxyCODONE (ROXICODONE) immediate release tablet 15 mgJump to med 15 mg, Oral, Every 4 hours PRN, severe pain (NRS 7-10) or if patient is non-communicative (CPOT 6-8), Starting on 04/30/25 at 0949, If on IV and PO pain medications, use IV if patient cannot tolerate oral. documented in this encounter Additional Health Concerns Assessment Noted Time PHQ-9 Depression Total Score: 13 11/04/ 025 2:00 PM EDT documented as of this encounter Care Teams Managed Care Coordinator Relationship Specialty Start Date End Date Geoff Graves DO [address] [place] [address] PCP - General 02/01/25 Farida Ortega, HARLEEN [address] [place] [address] Referring Physician Gastroenterology 09/02/23 Cat Benavides RN Txp Post Coordinator Corn Cutter Operator 05/02/25 documented as of this encounter
--- OUTSIDE RECORDS SUMMARY | 2025-04-18 06:30 | XMS_ITS | Encounter Summary ---
Author Organization [facility] Address [address] [place] [address] Care Team Providers Care Roller Picker Name Role Phone Geoff Graves DO Primary Care Provider Farida Ortega LUNCH TRUCK OPERATOR Unavailable Source Comments This information has [...] release of HIV test results or diagnoses. [id number] Health Reason for Visit * Auth/Cert (Routine) Specialty Diagnoses / Procedures Referred By Roselyn mccollum Referred To Contact Diagnoses Pre-transplant evaluation for chronic liver disease [Z01.818] Procedures LIVING DONOR TRANSPLANT RECIPIENT [facility] [address] [place] [address] Phone: tel: Referral ID Status Reason Start Date Expiration Date Visits Re quested Visits Authorized [id number] 1 1 Encounter Details Date Type Department Care Team (Late st Contact Info) Description 04/18/2025 7:30 AM EDT - 04/18/2025 5:00 PM EDT Surgery [facility] [address] [place] [phone] Ludin Jose MD [address] [place] [address] [place] [phone] LIVING DONOR LIVER TRANSPLANT Surgery Details Date/Time Status Location OR Service Patient Class Case Class Case Type Trauma Case? 04/18/2025 7:30 AM Posted OR 17 Transplant Surgery Admit Non Trauma Panel 1 Procedure LRB Anes Op Region Wound Class Comments LIVING DONOR LIVER TRANSPLANT N/A General Endotracheal Abdomen Clean Surgeon Surgeon Role Service Panel Jose Daniel MD Resident - Assisting Transplant 1 Alejandra Wilson MD Resident - Observing Transplant 1 Shannon Johns MD Assisting Transplant 1 Quan Yates III, MD Assisting Transplant 1 Ludin Jose MD Primary Transplant 1 Ludin Jose MD Primary Transplant 1 Ludin Jose MD Primary Transplant 1 Special Needs cell saver, liver transplant set, 10 units of RBC & FFP -#LW documented in this encounter Social History Tobacco Use Types Packs/Day Years Used Date Smoking Tobacco: Former Cigarettes 0.3 1.2 0 07/22/2014 - 07/22/2015 Smokeless Tobacco: Never Alcohol Use Standard Drinks/Week Comments Not Currently 0 (1 standard drink = 0.6 oz pur e alcohol) [facility] Utilities Answer Date Recorded In the past 12 months has th e [employer], gas, oil, or water [employer] threatened to shut off services in your [...] any time in the past 12 m [facility], were you homeless or living in a [...] Sign Reading Time Taken Comments Blood Pressure 99/65 04/18/2025 6:19 AM EDT Pulse 81 04/18/2025 6:19 AM EDT Temperature 36.1 C (96.9 F) 04/18/2025 6:19 AM EDT Respiratory Rate 14 04/18/2025 6:19 AM EDT Oxygen Saturation 98% 04/18/2025 6:19 AM EDT Inhaled Oxygen Concentration 98% 04/18/2025 6 :19 AM EDT Weight 70.8 kg (156 lb) 04/18/2025 6:19 AM EDT Height 165.1 cm (5' 5 ) 04/18/2025 6:19 AM EDT Body Mass Index 24.28 04/29/2025 5:08 AM EST documented in this encounter Functional Status * Peripheral Vascular Question Answer Date of Assessment Author Peripheral Vascular (KENISHA) KENISHA 04/18/2025 7:46 AM EDT Hedy Robison RN documented as of this encounter Discharge Summaries * ASIM Enriquez, HISTORICAL MANUSCRIPTS CURATOR - 05/03/2025 2:14 PM EST [facility] Care Management Discharge Summary Patient name: Mindy Wade [...] orders have been faxed to facility by [facility]. The plan has been reviewed: Family Member Name and Relationship Notified at Discharge: Khloe Wade-spouse Family Contact Number:[phone] No further CM/SW needs. This plan has been reviewed with the multi-disciplinary team. Treatment Preferences Treatment Preferences: Distance Post-Discharge Goals Patient's Post-Discharge goals: Get stronger Post Acute Care Provider Information: Community Services at Discharge Community Services at Home post discharge: Home Health [facility] Name/Phone # post discharge: [facility] [phone] Home Health Services Types at Discharge: PT/OT/SUPERVISOR CONTINGENTS AJ Mata [phone] * Giovanny Louis MD - 05/03/2025 2:06 PM EST Images from the original note were not included. [facility] Inpatient Discharge Summary Patient: Mindy Wade Age: 35 y.o. [facility]: [id number] Date of Admission: 04/18/2025 Date of Discharge: 05/03/2025 Attending Physician: Jose Daniel MD Primary Care Physician: GEOFF GRAVES DO Diagnoses Present on Admission Past 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: Diagnosis Date Abdominal hernia 02/21/2023 Alcoholic hepatitis (CMS-HCC) Anxiety Ascites Chronic diarrhea 08/21/2022 Cirrhosis ([facility]-HCC) Cystitis Depression Hepatitis C Discharge Diagnoses There are no hospital problems to display for this patient. Operations/Procedures Performed (include dates) Surgeries: Surgical/Procedural Cases on this Admission Case IDs Date Procedure Surgeon Location Status [id number] 04/18/25 LIVING DONOR LIVER TRANSPLANT Ludin Jose MD OR Comp [id number] 04/23/25 PUSH ENTEROSCOPY Kelsey Moyer MD ENDOSCOPY Comp [id number] 04/23/25 EMERGENCYEXPLORATORY LAP, REVISION OF JJ ANASTOMSIS, [...] at 05/02/2025 9:24 AM EST US Duplex Pzo-Jev-Bwalnbu Comp Final Result IMPRESSION: ABDOMINAL ULTRASOUND Normal [...] at 04/25/2025 11:02 AM EST US Duplex Prt-Feg-Sapewvt Comp Final Result IMPRESSION: RIGHT UPPER QUADRANT [...] at 04/23/2025 2:30 PM EDT US Duplex Cnj-Ylk-Cpfyjtb Comp Final Result IMPRESSION: RIGHT UPPER QUADRANT [...] Duplex Upper Left Final Result US Duplex Jcw-Sfq-Hujgjdw Comp Final Result IMPRESSION: RIGHT UPPER QUADRANT [...] at 04/19/2025 2:31 PM EDT US Duplex Svk-Lzi-Hezvlmt Comp Final Result IMPRESSION: RIGHT UPPER QUADRANT [...] Consulting Services (include reason) SICU PT/OT Social Work/Inspector Outside [employer] GI PICC Allergies Allergies[1] Discharge Medications Medication List TAKE [...] 120 capsule Refills: 5 naloxone 4 mg/actuation [place] Commonly known as: NARCAN Apply 1 spray [...] Your Medications These medications were sent to [facility] [address] [place] [address] [facility] [address] Hours: Friday - Friday: 8:00AM - 6:00PM acetaminophen 325 MG tablet aspirin 81 MG chewable tablet calcium-vitamin D 500 mg-5 mcg (200 unit) per tablet fluconazole 200 MG tablet lidocaine 5 % melatonin 3 mg Tab methocarbamoL 500 MG tablet mycophenolate 250 mg capsule naloxone 4 mg/actuation [place] oxyCODONE 5 MG immediate release tablet oxyCODONE [...] Discharged on a bowel regimen as needed. [facility] [place] patient and recommended home with [facility]. ENDO - A1C is 4.4. Glucoses remained [...] Patient and family received post-transplant education from aco coordinator as well as medication teaching from [...] listed above 4. Discharge specific orders: See [facility] Note 5. Core measures followed: (if this is a core measure patient) Discharge Weight: 145 lb 14.4 oz (66.2 kg) Disposition Home with assistance Home with supervision Home with Home Health Follow-Up Appointments Future Appointments Date Time Provider Department Center 05/10/2025 8:20 AM LTRA SURGERY, [facility] [address] [facility] [address] Signed: GIOVANNY LOUIS MD Transplant Surgery 05/03/2025 [...] Jose Daniel MD Transplant and Hepatobiliary Surgery [phone] (cell) documented in this encounter Discharge Instructions [...] kept under 2 gm/day. Please discuss withyour adoption coordinator if you have any question about appropriate dose to take. Other Instructions: Call post-liver transplant clinic with questions [phone] or call [facility] at [phone] and ask for the liver aco coordinator tester electronic scale if you experience any of the following: [...] 5# in 24 hours Follow-Up Appointment: Your aco coordinator will provide you with a calendar [...] PM EST 04/19/2025 naloxone (NARCAN) 4 mg/actuation [place] Apply 1 spray in one nostril if [...] oxyCODONE (ROXICODONE) 5 MG immediate release tabletIndications:Edie ving related donor renal transplant,Alcoholic cirrhosis of liver with ascites (CMS-HCC) Take 2 tablets (10 mg total) by mouth every 6 hours as needed for Pain for up to 7 days. 56 tablet 05/03/2025 3:44 PM EST 05/03/2025 aspirin 81 MG chewable tablet Chew 1 [...] PM EST 04/19/2025 pregabalin (LYRICA) 100 MG capsuleIndications:Yocasta iving related donor renal transplant Take 1 capsule (100 mg total) by mouth 2 times a day for 30 days. 60 capsule 05/03/2025 3:44 PM EST 04/28/2025 5 tacrolimus (PROGRAF) 1 MG capsule Take 3 capsules (3 mg total) by mouth every morning AND 2 capsules (2 mg total) at bedtime. 600 capsule 5 05/03/2025 3:44 PM EST 05/03/2025 5 tacrolimus (PROGRAF) 1 MG capsule Take 2 [...] Immunosuppression schedule as per Education Note by aco coordinator earlier this admission. Reviewed discharge medications [...] in clinic? (If significant deficits, communicate with aco coordinator): Standard continual education Future medications to [...] capsule, Refills: 5 naloxone (NARCAN) 4 mg/actuation [place] Apply 1 spray in one nostril if [...] transplant; Alcoholic cirrhosis of liver with ascites ([facility]-HCC) polyethylene glycol (GLYCOLAX) 17 gram/dose powder Mix [...] Tresa Beltran PharmD Solid Organ Transplant Clinical Front Office Help Contact via [employer] Secure Chat * Shaneka Hector, PT - 05/02/2025 11:39 AM EST Physical Therapy Treatment Name: Mindy Wade : 1990 Attending Physician: Ludin Jose MD Admission Diagnosis: Liver transplant recipient (CMS-HCC) [Z94.4] S/P liver transplant (CMS-HCC) [Z94.4] End stage liver disease (CMS-HCC) [K72.10] Date: 05/02/2025 Room: [address] [place] [address] Reviewed Pertinent hospital course: Yes Hospital Course [...] of fatigue. During 125' back to room, REGULATORY INTERN used instead of RW and pt able [...] activity from stairs w/o RW but with REGULATORY INTERN from pt's spouse) Unable to progress further [...] Device Standing-Dynamic Assistive Device: Rolling walker (& REGULATORY INTERN) Gait belt used: Informed patient that they [...] Long-term goal to be met by: 05/26/25 Longterm Goal : Pt will ambulate 250' independently [...] Tresa Beltran PharmD Solid Organ Transplant Clinical Front Office Help Contact via [employer] Secure Chat * NANCY Randhawa - 05/02/2025 10:17 AM EST Transplant Surgery Progress Note Name: Mindy Wade CSN: [id number] Date: 05/02/2025 10:17 AM OR Date: 04/18/2025 [...] PICC DISPO: 8ccp, planning for home with [facility] tmrw if LFTs continue to downtrend NANCY [...] Jose Daniel MD Transplant and Hepatobiliary Surgery [phone] (cell) * Giovanny Louis MD - 05/01/2025 6:03 AM EST Transplant Surgery Progress Note Name: Mindy Wade CSN: [id number] Date: 05/01/2025 6:03 AM OR Date: 04/18/2025 [...] per 24 hour Intake 1960 ml Output 5 ml Net -65 ml Physical Exam: Constitutional: [...] situation. Labs: Recent Labs 04/28/25 0637 04/29/25 0504/30/25 0512 WBC 6.2 5.3 4.3 HGB [...] multidisciplinary team on 05/01/25. Ludin Jose MD Therapist'S Assistant of Transplant Surgery [phone] (m) * Quan Yates III, MD - [...] Surgery Progress Note Name: Mindy Wade CSN: [id number] Date: 04/30/2025 6:54 AM OR Date: 04/18/2025 [...] the last 72 hours. Imaging: US Duplex Ujf-Iog-Anygzds Comp Result Date: 04/29/2025 EXAM: US ABDOMEN LIMITED EXAM: US DUPLEX [id number] COMPLETE INDICATION: Post-op liver transplant, right lobe [...] EXAM: US ABDOMEN LIMITED EXAM: US DUPLEX [id number]-[id number] COMPLETE INDICATION: Post-op liver transplant, right lobe [...] multidisciplinary team on 04/30/25. Ludin Jose MD Therapist'S Assistant of Transplant Surgery [phone] (m) * Manisha Barrios, OT - 04/29/2025 4:58 PM EST Occupational Therapy Treatment Name: Mindy Waed : 1990 Attending Physician: Ludin Jose MD Admission Diagnosis: Liver transplant recipient (CMS-HCC) [Z94.4] S/P liver transplant (CMS-HCC) [Z94.4] End stage liver disease (CMS-HCC) [K72.10] Date: 04/29/2025 Room: [address] [place] [address] Reviewed Pertinent hospital course: Yes Hospital Course [...] for toileting (goal met and updated 04/22) Longterm Goal : pt will perform IADL task assessment [facility] goal to be met in: 2 weeks [...] PM EST Physical Therapy Treatment Name: Mindy Wade : 1990 Attending Physician: Ludin Jose MD Admission Diagnosis: Liver transplant recipient (CMS-HCC) [Z94.4] S/P liver transplant (CMS-HCC) [Z94.4] End stage liver disease (CMS-HCC) [K72.10] Date: 04/29/2025 Room: [address] [place] [address] Reviewed Pertinent hospital course: Yes Hospital Course [...] Long-term goal to be met by: 05/26/25 Longterm Goal : Pt will ambulate 250' independently [...] other specified sites Viral syndrome * Geoff Sarmiento RD - 04/29/2025 10:19 AM EST TXP - Follow Up [facility] Medical Nutrition Therapy Follow-Up Diet Order/Nutrition Support: [...] mg Oral Nightly (2099) methocarbamoL 1,000 mg Oral TID mycophenolate 500 [...] Oral BID7 traZODone 50 mg Oral Nightly (2099) valGANciclovir 450 mg Oral Daily 0900 Continuous [...] Based on DBW of 68.1 kg Kcals/day: 6328-6635 (25-30 kcals/kg) Protein g/day: 100-140 (1.5-2.0 g/kg) [...] Dietitian - Solid Organ Transplant Contact via [employer] Chat * Yolanda Vang RD - 04/29/2025 [...] to transplant RD. Please reach out (preferably [employer] Secure Chat) if there are any questions or concerns. Yolanda Vang RD, JERARDO Metabolic Support Services * Gilmer Rivera CNP - 04/29/2025 7:46 AM EST Transplant Surgery Progress Note Name: Mindy Wade CSN: [id number] Date: 04/29/2025 7:41 AM OR Date: 04/18/2025 Subjective Awake and alert. No distress. Reports that she had some right upper arm redness that went up into her neck/ jaw. [place] as though this was related to Clinamix. [...] multidisciplinary team on 04/29/25. Ludin Jose MD Therapist'S Assistant of Transplant Surgery [phone] (m) * Jackie Hernandez OT - 04/28/2025 11:42 AM EST Occupational Therapy Reason Patient Not Seen Name: Mindy Coeyle : 1990 Attending Physician: [...] 11:50 AM EST Associated attestation - Kalie Muse, OT - 04/28/2025 11:50 AM EST I have reviewed, acknowledged, collaborated and agree with the following information written by [facility] quality assurance assistant. * Farhan Marcano, PT - 04/28/2025 11:21 [...] appropriate and as schedule allows Time Attempted: 1048 * Ana Brooks, HOTEL RESERVATIONIST - 04/28/2025 9:45 AM EST Transplant Surgery Progress Note Name: Mindy Wade CSN: [id number] Date: 04/28/2025 9:45 AM OR Date: 04/18/2025 [...] multidisciplinary team on 04/28/25. Ludin Jose MD Therapist'S Assistant of Transplant Surgery [phone] (m) * Yolanda Vang RD - 04/28/2025 [...] still pending. Goal TPN is Clinimix E 5/15 @ 83 mL/hr with SMOFlipid 50 g/day [...] Surgery Progress Note Name: Mindy Wade CSN: [id number] Date: 04/27/2025 10:30 AM OR Date: 04/18/2025 [...] this interval not displayed. Recent Labs 04/25/25 0518 INR 1.1 PROTIME 14.3 Imaging: X-ray Portable [...] on 04/27/25. Looks a lot better today. Traer trial NGT. Labs stable. Continue to walk and normalize. Dc incisional vac. Ludin Jose MD Therapist'S Assistant of Transplant Surgery [phone] (m) * Kalie Msue, OT - 04/26/2025 11:58 AM EST Occupational Therapy Treatment Name: Mindy Wade : 1990 Attending Physician: Alejandra Wilson MD Admission Diagnosis: Liver transplant recipient (CMS-HCC) [Z94.4] S/P liver transplant (CMS-HCC) [Z94.4] End stage liver disease (CMS-HCC) [K72.10] Date: 04/26/2025 Room: SICU-12/USIC-12 Reviewed Pertinent hospital course: Yes Hospital Course [...] Upper Body Dressing: Moderate assistance (to don/doff hospital gown) Upper Body Dressing Deficit: Set-up;Supervision/safety;Pull around [...] for toileting (goal met and updated 04/22) Longterm Goal : pt will perform IADL task assessment [facility] goal to be met in: 2 weeks [...] patient verbalized understanding. OT Time Start Time: 09 Stop Time: 1021 Time Calculation (min): 23 min OT Charges [...] liver disease (CMS-HCC) [K72.10] Date: 04/26/2025 [facility] [address] Reviewed Pertinent hospital course: Yes Hospital Course [...] Long-term goal to be met by: 05/26/25 Tobacco Stemmer Goal : Pt will ambulate 250' independently [...] as needed upon discharge. Time Start Time: 0958 Stop Time: 1025 Time Calculation (min): 27 [...] Surgery Progress Note Name: Mindy Wade CSN: [id number] Date: 04/26/2025 9:48 AM OR Date: 04/18/2025 Subjective 1.4L NG output, mostly ice chips Continues to have residual bloody stool Objective Vitals: Temp: [97.6 ??F (36.4 ??C)-98.1 ??F (36.7 ??C)] 97.6 ??F (36.4 ??C) Heart Rate: [73-93] 90 Resp: [9-27] 18 BP: (103-131)/(65-83) 119/75 Arterial Line BP: [...] EXAM: US ABDOMEN LIMITED EXAM: US DUPLEX [id number] COMPLETE INDICATION: Liver Transplant DATE: 04/25/2025 9:37 [...] at 04/25/2025 11:02 AM EST US Duplex Arj-Mdb-Ueoxtot Comp Result Date: 04/25/2025 EXAM: US ABDOMEN LIMITED EXAM: US DUPLEX [id number] COMPLETE INDICATION: Liver Transplant DATE: 04/25/2025 9:37 [...] - HDSSI PPX: CARIE, SCD, PPI Dispo: HILARY CHEN MD Transplant Surgery Cosigned by Ludin [...] morning. Will get KUB. Ludin Jose MD Therapist'S Assistant of Transplant Surgery [phone] (m) * Raf Talley MD - 04/26/2025 [...] times a day. naloxone (NARCAN) 4 mg/actuation [place] Apply 1 spray in one nostril if [...] No PaO2 result within 12 hours. IBW: [place] body weight: 57 kg (125 lb 10.6 [...] baseline or with provocation, shows a very hquqkmicyv-hq-beod atrial level shunt. There is a shunt [...] 114* 113* 112* CO2 22 22 21 25 BUN 26* 29* 31* 35* 34* [...] in sodium chloride 0.9 % 100 mL Jlbn0Ced IVPB 3.375 g Every8 hours 04/25/2025 -- Admin Instructions: Use Wdni3Fjc Adapter - Mix Thoroughly Before Administration Route: [...] extremities prior to intubation and seadtion GCS: Heath Coma Scale Score: 15 (Eye Openin, Best Verbal Response: 5, Best Motor Response: 6) No data found. A/P: #Sedation/Analgesia - Dilaudid (12x doses in last 24 hours) - [facility] Exam: Intubated and sedation; unable to [...] use of seat during bathing tasks - SUPERVISOR CONTINGENTS Recs: Dispo: stepdown Code Status: Full Code [...] Tresa Beltran PharmD Solid Organ Transplant Clinical Front Office Help Contact via [employer] Secure [employer] * Gloria Chen MD - 04/25/2025 11:21 AM EST Transplant Surgery Progress Note Name: Mindy Wade CSN: [id number] Date: 04/25/2025 11:21 AM OR Date: 04/18/2025 [...] 4.5 4.2 CL 112* 112* 113* CO2 BUN 33* 34* 35* CREATININE 0.93 0.85 [...] displayed. Recent Labs 04/24/25 0000 04/24/25 0436 04/25/2518 INR 1.1 1.1 1.1 PROTIME 14.9 14.7 14.3 Imaging: US Abdomen Limited Result Date: 04/25/2025 EXAM: US ABDOMEN LIMITED EXAM: US DUPLEX [id number] COMPLETE INDICATION: Liver Transplant DATE: 04/25/2025 9:37 [...] at 04/25/2025 11:02 AM EST US Duplex Ejh-Zrh-Qwgsixt Comp Result Date: 04/25/2025 EXAM: US ABDOMEN LIMITED EXAM: US DUPLEX CPS-[id number] COMPLETE INDICATION: Liver Transplant DATE: 04/25/2025 9:37 [...] due to hemodynamic instability. Ludin Jose MD Therapist'S Assistant of Transplant Surgery [phone] (m) * Raf Talley MD - 04/25/2025 [...] times a day. naloxone (NARCAN) 4 mg/actuation [place] Apply 1 spray in one nostril if [...] No FiO2 recorded within 12 hours. IBW: [place] body weight: 57 kg (125 lb 10.6 [...] baseline or with provocation, shows a very hvnwoorexl-wp-vruj atrial level shunt. There is a shunt [...] (mL) 04/23/25 0701 - 04/23/25 1900 04/23/25 190 - 04/24/25 0700 04/24/25 0701 - 04/24/25 [...] CHLORIDE 113* 112* 112* 110 108 CO2 BUN 35* 34* 33* 38* 38* CREATININE [...] 04/24/25 1840 04/24/25 1229 04/24/25 0436 CO2 24 24 26 BUN 35* 34* 33* [...] -- 136* 133* 144* 158* 124* 102* 126*116* GLUCOSE 73 -- 74 -- 100 -- [...] 0518 04/25/25 0005 04/24/25 1840 04/24/25 1229 04/24/25435 WBC 4.9 6.1 7.2 8.8 9.4 UA: [...] in sodium chloride 0.9 % 100 mL Sjtm6Lmo 4.5 g Every 8 hours 04/23/2025 -- Admin Instructions: Use Neog7Zir Adapter - Mix Thoroughly Before Administration Route: [...] (11x doses in last 24 hours) - [facility] Plan for tylenol, Robaxin, PRN Dilaudid once [...] use of seat during bathing tasks - SUPERVISOR CONTINGENTS Recs: Dispo: Remain in SICU Code Status: [...] Surgery Progress Note Name: Mindy Wade CSN: [id number] Date: 04/24/2025 6:43 AM OR Date: 04/18/2025 [...] EXAM: US ABDOMEN LIMITED EXAM: US DUPLEX [id number] COMPLETE INDICATION: Liver Transplant COMPARISON: None TECHNIQUE: [...] at 04/23/2025 2:30 PM EDT US Duplex Aqt-Kes-Vzkxrqm Comp Result Date: 04/23/2025 EXAM: US ABDOMEN LIMITED EXAM: US DUPLEX [id number] COMPLETE INDICATION: Liver Transplant COMPARISON: None TECHNIQUE: [...] MD PhD Transplant Surgery * Celio Espinosa, LISA - 04/24/2025 5:56 AM EST RESPIRATORY THERAPY [...] PCO2 40 04/24/2025 PO2ART 107 (H) 04/24/2025 GBT0FNS 23 04/24/2025 BEART -2.0 04/24/2025 PLA7BES 97.3 04/24/2025 V4YLQEAF 100 04/24/2025 Based on this SBT assessment [...] Admitted to SICU post op. [facility] ago and had a rapid [...] 61 (H) 04/23/2025 PO2ART 122 (H) 04/23/2025 INT0LVP 19 (L) 04/23/2025 BEART -8.3 (L) 04/23/2025 VJQ6RYH 96.2 04/23/2025 Z6RQBHFA 98 04/23/2025 P:F ratio = 203 Cont [...] Acute Care Surgery, and Surgical Critical Care [facility] Academic Office [phone] For Transfers, call [phone] * Sergey Altman MD - 04/23/2025 5:52 AM EDT Transplant Surgery Progress Note Name: Mindy Wade CSN: [id number] Date: 04/23/2025 7:59 AM OR Date: 04/18/2025 [...] 266* 241* Recent Labs 04/22/25 0606 04/22/25 2304 04/23/2522204/23/25 0426 AST 116* -- 63* 59* ALT [...] RT BID sulfamethoxazole-trimethoprim 1 tablet Oral Daily 09 tacrolimus 0.5 mg Oral BID valGANciclovir 450 mg Oral Daily 0900 Continuous Infusions: EPINEPHrine (ADRENALIN) 10 mg in sodium chloride 0.9 % 250 mL infusion 2 mcg/min (04/23/25329) fentanyl (SUBLIMAZE) IV infusion 50 mcg/hr (04/23/25319) [...] bleed unable to access with endoscopy on MTP Plan discussed in person with Alejandra Wilson [...] Care, and Acute Care Surgery * Celio Espinosa RRT - 04/23/2025 3:37 AM EDT Patient Mindy [...] goals: Good Pt ambulated to bathroom w/ staff forester and niece present. Pt required CGA for [...] for toileting (goal met and updated 04/22) Longterm Goal : pt will perform IADL task assessment [facility] goal to be met in: 2 weeks [...] other specified sites Viral syndrome * Enoch Miller PT - 04/22/2025 12:18 PM EDT Physical [...] Surgery Progress Note Name: Mindy Wade CSN: [id number] Date: 04/22/2025 12:08 PM OR Date: 04/18/2025 [...] independently Labs: Recent Labs 04/20/25 0133 04/21/25 0904/22/25 0606 WBC 10.9* 6.0 4.1 HGB 11.8 9.7* 9.6* HCT 34.9* 28.4* 27.7* PLT 77* 49* 48* Recent Labs 04/20/25180804/21/25 0904/22/25 0606 NA 133 136 137 K 5.4* [...] 137* 109* 80 114* Recent Labs 04/20/25 18004/21/25 0900 04/22/25 0606 AST 162* 122* 116* [...] Q6H Scheduled lidocaine 1 patch Transdermal Daily 09 mycophenolate 500 mg Oral BID pantoprazole 40 [...] 7:18 AM EDT TXP - Follow Up [facility] Medical Nutrition Therapy Follow-Up Diet Order/Nutrition Support: Diet/Nutrition Orders Diet clear liquid Sips Frequency: Effective Now Number of Occurrences: Until Specified Order Questions: Liquid type: Sips Suicide/Behavior Risk Modification? No Pertinent Information: Pt seen for follow-up. present during visit. Continues on clears. Denies n/v. No BM since field captain. Mostly just thirsty. Reviewed post-txp nutrition [...] I/O: +1.9L net volume. Last BM Date: (BRICK UNLOADER TENDER). Admit Weight: 156 lb (70.8 kg) Current Weight: 166 lb 6.4 oz (75.5 kg) Pertinent Labs: Recent Labs 04/19/25 17204/20/2513204/21/25 0900 WBC 13.3* 10.9* 6.0 HGB 12.5 [...] 2.7* PHOS 4.9* 4.3 3.9 Recent Labs 04/20/2513204/20/25 18004/21/25 0900 AST 163* 162* 122* ALT 127* 137* [...] Based on DBW of 68.1 kg Kcals/day: 2785-1613 (25-30 kcals/kg) Protein g/day: 100-140 (1.5-2.0 g/kg) [...] Dietitian - Solid Organ Transplant Contact via [employer] Chat * Rosa BoykinD - 04/21/2025 6:00 PM EDT Caprini Risk [...] bariatric, vascular, and plastic and reconstructive surgery Marai G M, Kota N, Kyler ES, et [...] the Caprini Risk Score of 10 and [facility] transplant protocol, I recommend discharging on heparin 5,000 units subcutaneously q8h (facility) or Eliquis 2.5 mg PO BID (home) for 30 days total. Endof chemoprophylaxis: 05/18/25. Tresa Beltran PharmD Solid Organ Transplant Clinical Front Office Help Contact via [employer] Secure Chat * Mary Timmons, PT - 04/21/2025 3:24 PM EDT Physical [...] complete a bath soon. Reported pain in CYN[place], RN notified. PT will reattempt as schedule allows per POC. Thank you. Time Attempted: 1514 * Giovanny Louis MD - 04/21/2025 6:01 AM EDT Transplant Surgery Progress Note Name: Mindy Wade CSN: [id number] Date: 04/21/2025 6:01 AM OR Date: 04/18/2025 [...] water, HYDROmorphone OR HYDROmorphone, ondansetron, oxyCODONE, phenoL Assessment/Nico Wade is a 35 y.o. female with [...] Dispo: Floor GIOVANNY LOUIS MD Transplant Surgery [facility] Surgery Resident Cosigned by Alejandra Wilson MD [...] Alejandra Wilson MD PhD Transplant Surgery * Sal Rose - 04/20/2025 12:46 PM EDT 04/20/25 [...] of our conversation centered around the patient's cristian and health concerns. Aircraft Avionics Technician can be paged at [phone] if needs arise or would like follow-up, or patient/family requests a visit. Chaplains are available and can be paged 24 hours a day. Chaplain John Rose Th.D., M.Div., M.R.E., [facility]. * Giovanny Louis MD - 04/20/2025 12:42 PM EDT Transplant Surgery Progress Note Name: Mindy Wade CSN: [id number] Date: 04/20/2025 6:05 AM OR Date: 04/18/2025 [...] urinating independently Labs: Recent Labs 04/19/25 1241 04/19/25172604/20/25132 WBC 15.6* 13.3* 10.9* HGB 12.9 12.5 11.8 HCT 37.8 37.1 34.9* PLT 95* 77* 77* Recent Labs 04/19/25 1241 04/19/25172604/20/25132 NA 139 141 141 K 5.2 5.4* [...] interval not displayed. Recent Labs 04/19/25 1241 04/19/25172604/20/25132 AST 185* 178* 163* ALT 142* 131* 127* BILITOT 2.1* 2.0* 1.6* BILIDIRECT 0.81* 0.79* 0.59* ALKPHOS 57 58 54 ALBUMIN 2.9* 2.9* 2.9* 2.9* 2.8* 2.8* Recent Labs 04/19/25 1241 04/19/25172604/20/25 013 INR 1.8* 1.9* 1.7* PROTIME 22.0* 23.0* 21.0* Imaging: US Abdomen Limited Result Date: 04/19/2025 EXAM: US ABDOMEN LIMITED EXAM: US DUPLEX [id number] COMPLETE INDICATION: Other - Must specify in [...] at 04/19/2025 2:31 PM EDT US Duplex Kzk-Kab-Jbfttoz Comp Result Date: 04/19/2025 EXAM: US ABDOMEN LIMITED EXAM: US DUPLEX [id number] COMPLETE INDICATION: Other - Must specify in [...] Dispo: SICU GIOVANNY LOUIS MD Transplant Surgery [facility] Surgery Resident Cosigned by Alejandra Wilson MD [...] Wilson MD PhD Transplant Surgery * Gracia Quinn, OT - 04/20/2025 10:21 AM EDT Occupational Therapy Initial Assessment Name: Mindy Wade : 1990 Attending Physician: Ludin Jose MD Admission Diagnosis: Liver transplant recipient (CMS-HCC) [Z94.4] Date: 04/20/2025 Room: [place] [address] [address] Reviewed Pertinent hospital course: Yes Hospital Course [...] Independent IADL Assistance: Independent 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 patient verbalized understanding. 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 from EOB with REGULATORY INTERN, and from commode with RW) Stand to Sit: Contact guard assistance;cues for hand placement Bed to Chair: Minimal assistance;Contact guard assistance (Ziyad with REGULATORY INTERN bed>commode; CGA with RW commode >chair) Unable [...] Long-term goal to be met by: 05/04/25 Longterm Goal : Pt will ambulate 250' independently [...] as needed upon discharge. Time Start Time: 08 Stop Time: 900 Time Calculation (min): 26 min Charges $PT [...] comprehensive medication evaluation was conducted through the [employer] electronic medical record review on interprofessional rounds [...] Team. Tresa Diaz, PharmD PGY2 Critical Care Patrol Man Preferred contact: [employer] Secure Chat Weekend/On-call pager: [phone] 04/19/2025 12:38 PM Patient Characteristics: Patient Height, [...] (L) 04/19/2025 Lab Results Component Value Date CMXV21C 27.1 (L) 04/11/2025 Current Medications Current Facility-Administered [...] sodium chloride (iso-osm) 200 mg Q24H Yane Wheatley CNP Stopped at 04/19/25 1055 [Held by provider] [...] all previous insulin and antidiabetic medications Once Mohan Khan MD sodium chloride 0.9 % 75 mL/hr Continuous Jostin Hess MD Rate Verify at 04/19/25 1100 tacrolimus 1 mg BID Yane Beckwith Corry, HOTEL RESERVATIONIST 1 mg at 04/19/25 0830 Recent Serum [...] 04/20/2025 2:12 PM EDT Pham Gallo PharmD, [facility] Clinical Front Office Help Preferred Contact: [employer] Office: [phone] Pager: [phone] 04/20/25 2:12 PM * Shannan Kumar PharmD [...] Solid Organ Transplant Clinical Specialist Contact via [employer] Secure [employer] Preferred * Judith Murcia MD - 04/19/2025 [...] data found. 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 Current Diet: Diet/Nutrition Orders Diet NPO Frequency: Effective Now Number of Occurrences: Until Specified Prealbumin: A/P: #Risk for Malnutrition - NPO per primary team FLUIDS / ELECTROLYTES Labs: Lab 04/19/25 0633 04/18/25231804/18/25221104/18/25185804/18/25 0603 SODIUM 139 139 139 139 138 [...] Weight: 156 lb (70.8 kg) Intake/Output: Date 04/18/25 07 - 04/19/25 0659 04/19/25 07 - 04/20/25 0659 Shift 6273-4838 0453-9851 8779-7882 24 Hour Total 1137-6647 9792-7976 5701-7198 24 Hour Total INTAKE P.O. 0 0 [...] in sodium chloride 0.9 % 250 mL Xgor3Ykv) 298.3 298.3 Volume (mL) (ciprofloxacin (CIPRO) 400 mg in dextrose 5% 200 mL IVPB) 200 200 400 Volume (mL) (albumin human bottle 5%) 1500 1500 Volume (mL) (AMPicillin 1 g in sodium chloride 0.9% 100 mL IVPB (Myyd4Les)) 100 100 200 Volume (mL) (mycophenolate (CELLCEPT) 500 mg in dextrose 5% in water (D5W) 50 mL IVPB) 19.2 30.8 50 Shift Total(mL/kg) 7848.3(110.9) 4567.9(64.6) 906.2(12.8) 24651.4(188.3) OUTPUT Urine(mL/kg/hr) 500(0.9) 550(1) 147(0.3) 1197(0.7) 40 [...] 04/19/2025 0800 Gross per 24 hour Intake 88546.1 ml Output 9687 ml Net 3137.1 ml UOP: 1,237 mL/24 hrs IVF: sodium chloride 0.9 %, Last Rate: 75 mL/hr (10/28/25 0600) A/P: #Fluid Balance - Goal UOP 0.5 mL/kg/hr - Strict I/Os #Electrolytes - Hand replete electrolytes - q6 renal, Mg - Replaced K - Recheck PM K RENAL Labs: Lab 04/19/25 0633 04/18/25 2319 04/18/25 2212 04/18/25 1859 04/18/25 0603 CO2 23 23 22 20* 26 BUN 21 14 14 11 12 CREATININE 0.76 0.65 0.65 0.66 0.77 EGFR >90 >90 >90 >90 >90 Lab 04/18/25 2246 04/18/25 1859 PH ARTERIAL 7.38 7.40 PCO2 ARTERIAL [...] - No active issues HEMATOLOGIC Labs: Lab 04/19/25 0633 04/18/25 2319 04/18/25 1859 04/18/25 1700 04/18/25 1600 04/18/25 1410 04/18/25 1352 [...] this interval not displayed. Lab 04/19/25 0633 04/18/25 2319 04/18/25 1859 04/18/25 1654 04/18/25 1555 INR POC -- -- -- 1.6* 1.4 INR 1.9* 1.8* 1.8* -- -- Lab 04/18/25 1859 04/18/25 1352 04/18/25 0603 [...] - TITRATABLE NURSING PROTOCOL (HYPERGLYCEMIA) 0-28 Units/hr Ibpaupaltf64/27/2025 04/19/2025 Admin Instructions: FOR O.R. USE only. [...] in sodium chloride 0.9% 100 mL IVPB (Eskb2Ovf) 1 g Every 6 hours 04/18/2025 04/20/2025 Admin Instructions: Dosage may need to be adjusted for renal dysfunction. Full dose is 1g IV q6h Use Ikku9Int Adapter - Mix Thoroughly Before Administration Notes to Pharmacy: On mail order clerk estimated creatinine clearance is 100.6 mL/min (based [...] in sodium chloride 0.9 % 250 mL Brlp8Sno (Completed) 20 mg/kg ?? 71.6 kg Once 04/18/2025 04/18/2025 Admin Instructions: Begin infusion 120 minutes prior to incision Use Mgoj3Ena Adapter - Mix Thoroughly Before Administration Route: [...] - PT Recs: - OT Recs: - SUPERVISOR CONTINGENTS Recs: Dispo: Remain in SICU Code Status: [...] PCO2 38 04/18/2025 PO2ART 136 (H) 04/18/2025 IJY3XOS 23 04/18/2025 BEART -2.3 (L) 04/18/2025 FOL7PVZ 96.6 04/18/2025 R7UYCLRP 100 04/18/2025 P:F ratio = 340 CARDIOVASCULAR: [...] Acute Care Surgery, and Surgical Critical Care [facility] Academic Office [phone] For Transfers, call [phone] * Giovanny Louis MD - 04/19/2025 6:08 AM EDT Transplant Surgery Progress Note Name: Mindy Wade CSN: [id number] Date: 04/19/2025 6:09 AM OR Date: 04/18/2025 [...] %] 40 % I/O: Date 04/18/25699 - 04/19/2565804/19/25699 - 04/20/25 0659 Shift 4066-5195 4490-4455 7355-3778 24 Hour Total 3526-0017 6852-2671 7497-9968 24 Hour Total INTAKE P.O. 0 0 [...] in sodium chloride 0.9 % 250 mL Uggi1Kzo) 298.3 298.3 Volume (mL) (ciprofloxacin (CIPRO) 400 mg in dextrose 5% 200 mL IVPB) 200 200 400 Volume (mL) (albumin human bottle 5%) 1500 1500 Volume (mL) (AMPicillin 1 g in sodium chloride 0.9% 100 mL IVPB (Ahjj5Raf)) 100 100 200 Volume (mL) (mycophenolate (CELLCEPT) 500 mg in dextrose 5% in water (D5W) 50 mL IVPB) 19.2 30.8 50 Shift Total(mL/kg) 7848.3(110.9) 4567.9(64.6) 751.8(10.6) 44151(186.1) OUTPUT Urine(mL/kg/hr) 500(0.9) 550(1) 117 1167 Urine [...] this interval not displayed. Recent Labs 04/18/25 18504/18/25 2212 04/18/25 2319 NA 139 139 139 K 3.6 3.6 3.7 CL 108 110 109 CO2 20* 22 23 BUN 11 14 14 CREATININE 0.66 0.65 0.65 GLUCOSE 163* 152* 156* CALCIUM 8.1* 7.8* 7.8* MG 2.2 2.2 2.2 PHOS 3.7 3.5 3.5 Recent Labs 04/18/25 1256 04/18/25 1339 04/18/25 1410 04/18/25 1506 04/18/25 1600 04/18/25 1700 04/18/25 1859 04/18/25 2111 10/27/220804/19/25 0023 04/19/25 0217 04/19/25 0421 04/19/255 POCGLU 102* 124* 158* 144* 133* 136* -- -- -- -- -- -- -- POCGMD -- -- -- -- -- -- < > 141* 145* 119* 120* 89 120* < > = values in this interval not displayed. Recent Labs 04/18/25 0603 04/18/25 18504/18/25 22104/18/252318 AST 37 195* -- 203* ALT 25 127* -- 139* BILITOT 1.5 5.1* -- 4.5* BILIDIRECT 0.53* 2.86* -- 2.41* ALKPHOS 118 53 -- 55 ALBUMIN 3.8 3.8 2.7* 2.7* 2.8* 2.8* 2.8* Recent Labs 04/18/25 1352 04/18/25185804/18/252318 INR 1.9* 1.8* 1.8* PROTIME 23.1* 21.5* [...] - FGBG Neuro: - Dilaudid 0.5-1 - MMPC Psych: -Home meds: n/a PPX: CARIE 5000 units TID, SCD, PPI Dispo: SICU GIOVANNY LOUIS MD Transplant Surgery [facility] Surgery Resident Cosigned by Alejandra Wilson MD [...] Ventura MD - 04/23/2025 5:23 AM EDT [facility] PRE-SEDATION ASSESSMENT, HISTORY & PHYSICAL Date: 04/23/2025 [...] times a day. naloxone (NARCAN) 4 mg/actuation [place] Apply 1 spray in one nostril if [...] EDT Proceed with LDLT. Ludin Jose MD Therapist'S Assistant of Transplant Surgery [phone] () documented in this encounter Procedure Notes * Alejandra Wilson MD - 04/23/2025 12:32 PM EDT Patient Name: Mindy Wade Date: 1990 Billing #: [id number] Date of Procedure: 04/23/2025 Diagnosis: GI bleed Procedure: 1. Reopening of recent laparotomy 2. Revision of jejunojejunostomy 3. Gastric lavage Attending surgeons: Surgeons and Role: * Alejandra Wilson MD - Primary * Quan Yates III, MD Circus Roustabout Surgeon(s): Jennifer Hess MD Findings: Normal liver [...] of available help, Dr. Yates served as hotel assistant manager. Procedure: The patient brought to the operating [...] ANASTOMSIS, GASTRIC LAVAGE Brief Op Note Mindy Mauro 04/18/2025 - 04/23/2025 Pre-op Diagnosis: s/p liver transplant Post-op Diagnosis: Same Procedure(s): EMERGENCYEXPLORATORY LAP, REVISION OF JJ ANASTOMSIS, GASTRIC LAVAGE Surgeon(s): MD Quan Rodriguez III, MD Anesthesia: General Staff: [id number] Programmer Analyst: Viktor Kennedy RN; Mikaela Delgado RN Scrub [...] IUC (Ybarra) Non-latex;Straight-tip 16 Fr. (Removed) Status Traer Drainage 04/19/25 08 Collection Container Standard drainage bag 04/19/25799 Securement Method StatLock 04/19/25 08 Indication for [...] Moyer MD - 04/23/2025 6:01 AM EDT [id number] Procedure Date: 04/23/2025 6:01 AM Patient Name: Mindy Wade Date of : 1990 Admit Type: Inpatient Age: 35 Gender: Female Note Status: Finalized Attending MD: Kelsey Moyer , , [phone] Procedure: Small bowel enteroscopy Indications: Melena Patient [...] by the physician, the nurse and the cable television line technician in the procedure room. Mental Status [...] the bleed. Procedure Code(s): --- Professional --- 19505, GC, Small intestinal endoscopy, enteroscopy beyond second portion of duodenum, not including ileum; diagnostic, including collection of specimen(s) by brushing or washing, when performed (separate procedure) Diagnosis Code(s): --- Professional --- K92.2, Gastrointestinal hemorrhage, unspecified K92.1, Melena (includes Hematochezia) CPT copyright 2022 [employer]. All rights reserved. The codes documented in this report are preliminary and upon licensed dispensing optician review may be revised to meet current compliance requirements. Attending Participation: I was present and participated during the entire procedure from insertion to removal of the endoscope. Kelsey Moyer Kelsey Moyer, 04/23/2025 11:32:48 AM Mike Ventura Mike Ventura, 04/23/2025 7:30:40 AM Total Procedure Duration Time 0 hours 51 minutes 31 seconds Scope In: 6:09:10 AM Scope Out: 7:00:[address] [place] [address], [address] * Drea Campbell MD - 04/23/2025 4:52 AM EDTAssociated Order(s): Insert Arterial Line Insert Arterial Line Date/Time: 04/23/2025 4:53 AM Performed by: Drea Campbell MD Authorized by: Manuela Lang MD Consent: Consent obtained: Emergent situation [place] protocol: Patient identity confirmed: Hospital-assigned identification number [...] Acute Care Surgery, and Surgical Critical Care [facility] Academic Office [phone] * Manuela Lang MD - 04/23/2025 4:00 [...] Alternatives discussed: No treatment and delayed treatment [place] protocol: Patient identity confirmed: Hospital-assigned identification number [...] Acute Care Surgery, and Surgical Critical Care [facility] Academic Office [phone] * Chava Mcgraw RN - 04/21/2025 8:37 [...] Mcgraw RN Authorized by: Ludin Jose MD [place] Protocol: Verbal consent obtained?: Yes Written consent [...] time out verifies correct patient, procedure, equipment, operations support coordinator and site/side marked as required: Preparation: Preparation: [...] Name: Mindy Wade Date: 1990 Billing #: [id number] Date of Procedure: 04/18/2025 Diagnosis: Chronic Hepatic Failure without coma Procedure: 1. Back bench preparation right lobe living donor liver 2. Back bench venous extension of right hepatic vein with iliac vein graft 3. Back bench venous anastomosis (V8 to iliac vein graft) Attending surgeons: Quan Yates III, MD - Primary [employer]us [employer]stabout Surgeon(s): Shannon Johns MD - Assisting Findings: [...] reconstruction of V8 and RHV) Vein Conduit: [id number] - ABO O Anesthesia: GETA Blood/Fluid Products: [...] donor was ABO O and UNOS ID [id number]. The donor is a is a 53 [...] vein graft from donor with UNOS ID [id number] and ABO was utilized as well. Prior [...] qualified and available helped Dr. Johns as assistant store manager sales surgeons in this case. Procedure: Back bench [...] this came from donor with UNOS ID [id number] that was ABO O. Next a slit [...] Jose MD - 04/18/2025 5:00 PM EDT [facility] OPERATIVE REPORT Patient Name: Mindy Wade Date: 1990 Billing #: [id number] Date of Procedure: 04/18/2025 Diagnosis: Chronic Hepatic Failure without coma Procedure: 1. Right lobe living donor liver transplant with edna en y hepaticojejunostomy. Attending surgeons: Surgeons and Role: * Ludin Jose MD - Primary * Quan Yates III, MD - Assisting * Shannon Johns MD - Assisting * Jose Daniel MD - Resident - Assisting * Alejandra Wilson MD - Resident - Observing [employer] Roustabout Surgeon(s): Jennifer Hess - Fellow Findings: Right [...] donor was ABO O and UNOS ID [id number]. The cadaveric vessels came from UNOS ID [id number] who was also ABO O. The donor [...] compatibles blood types, prior to [facility]. Patient was induced with Solu-Medrol. Dr. Hung did the living donor hepatecomy. Due to the nature of the liver transplant and lack of other qualified and available helped Dr. Yates served as assistant store manager sales surgeon in this case. Procedure: Back bench [...] Bencini, MD Ralph Cutler Quillin III, MD Ludin Snyder MD Alex Chang, MD Anesthesia: General Endotracheal Staff: As400 Programmer Analyst: Aurelio Abarca RN; Mary Fink RN; Piero Sharpe, KONSTANTIN; Victor Manuel Kevin [...] of days: 0 Transplant-Specific Information UNOS ID: [id number] Cross-clamp: 1202 Out of ice: 1303 Reperfusion: [...] times a day. naloxone (NARCAN) 4 mg/actuation [place] Apply 1 spray in one nostril if [...] H2O 8 cm H20 10 cm H2O 04/24/254 VC-SIMV/PRVC 14 410 mL 0 mL 0.9 [...] 98 99 - P:F Ratio: 268 IBW: Jack[place] body weight: 57 kg (125 lb 10.6 [...] 0745 04/23/25 0426 04/23/25 0223 04/19/25 0633 04/19/25226 HSTROP -- -- -- -- -- 15* [...] baseline or with provocation, shows a very qbdtijaubl-lc-ktew atrial level shunt. There is a shunt [...] 108 108 107 107 106 CO2 26 24 24 26 BUN 38* 37* [...] 80 76 Lab 04/24/25 0543 04/24/25 0000 04/23/251810 04/23/25 1344 04/23/25 1146 PH ARTERIAL 7.37 [...] in sodium chloride 0.9 % 100 mL Xmiy3Blw (Completed) 4.5 g Once 04/23/2025 04/23/2025 Admin Instructions: Use Vsjf7Uay Adapter - Mix Thoroughly Before Administration Route: Intravenous Linked Group 1: Placed in Followed by Linked Group piperacillin-tazobactam (ZOSYN) 4.5 g in sodium chloride 0.9 % 100 mL Cjcy3Dag 4.5 g Every 8 hours 04/23/2025 -- Admin Instructions: Use Vevb6Jjo Adapter - Mix Thoroughly Before Administration Route: [...] extremities prior to intubation and seadtion GCS: Heath Coma Scale Score: 15 (Eye Openin, Best [...] use of seat during bathing tasks - SUPERVISOR CONTINGENTS Recs: Dispo: Remain in SICU Code Status: Full Code Signed: MOE LUIS MD, MD 04/24/2025, 6:51 AM [1] No Known Drug [...] Admitted to SICU post op. Transferred to the [facility] 2 days ago and had a rapid [...] PCO2 40 04/24/2025 PO2ART 107 (H) 04/24/2025 DJI9SLA 23 04/24/2025 BEART -2.0 04/24/2025 UUJ0ZXZ 97.3 04/24/2025 Q0RBEDKD 100 04/24/2025 P:F ratio = 268 Passed [...] Acute Care Surgery, and Surgical Critical Care [facility] Academic Office [phone] For Transfers, call [phone] * Mike Ventura MD - 04/23/2025 4:29 AM EDTAssociated Order(s): IP CONSULT TO GASTROENTEROLOGY [facility] GI CONSULT NOTE Consulted by: Alejandra Wilson [...] times a day. naloxone (NARCAN) 4 mg/actuation [place] Apply 1 spray in one nostril if [...] times a day. naloxone (NARCAN) 4 mg/actuation [place] Apply 1 spray in one nostril if [...] sec 36 cm H2O 10 cm H20 04/23/256 VC-AC/PRVC 16 450 mL 0 mL 1 sec 37 cm H2O 10 cm H20 Other O2 Device: Patient Vitals for the past 5 hrs: O2 Device FiO2 O2 Flow Rate (L/min) 04/23/25409 -- 60 % -- 04/23/25325 ETT;Vent 100 % -- 04/23/25 0122 Nasal Cannula -- 4 L/min 04/23/25 0020 None (Room air) -- 0 L/min Total RSBI: 11 (04/18/252245) Blood Gas: Lab 04/23/256 04/18/25224504/18/25 1859 PH ARTERIAL 7.14* 7.38 7.40 PCO2 ARTERIAL 61* 38 33* PO2 ARTERIAL 122* 136* 158* HCO3 ARTERIAL 19* 23 22 BASE EXCESS ARTERIAL -8.3* -2.3* -3.6* % HBO2 96.2 96.6 95.1 O2 SATURATION ARTERIAL 98 100 100 - P:F Ratio: 203 IBW: [place] body weight: 57 kg (125 lb 10.6 [...] baseline or with provocation, shows a very jfzvcaaiow-nf-pdro atrial level shunt. There is a shunt [...] Drain Output: Output by Drain (mL) 04/21/25 0701 - 04/21/25 1900 04/21/25 1901 - 04/22/25 0700 04/22/25 0701 - 04/22/25 1900 04/22/25 1901 - 04/23/25 0503 Drain sub hepatic #1 Abdomen Right;Superior 170 325 215 275 Drain hilar #2 Abdomen Right;Superior 175 275 90 60 GI Labs: Lab 04/23/25 0223 04/22/25 2304 04/22/25 0606 04/21/25 0900 04/20/25 1809 04/20/25 0133 ALK PHOS 63 -- [...] FLUIDS / ELECTROLYTES / RENAL Labs: Lab 04/23/2522204/22/25230304/22/2560504/21/2589904/20/25 1809 SODIUM 134 133 137 136 133 POTASSIUM [...] (04/23/25 0320) propofol, Last Rate: 20 mcg/kg/min (04/23/25316) sodium chloride 0.9 % sodium chloride 0.9 % sodium chloride 0.9 % sodium chloride 0.9 % sodium chloride 0.9 % Labs: Lab 04/23/2522204/22/25230304/22/2560504/21/2589904/20/25 1809 CO2 22 23 22 21 19* [...] No data found. A/P: #Sedation/Analgesia - Propofol [facility] Exam: Intubated and sedation; unable to [...] use of seat during bathing tasks - SUPERVISOR CONTINGENTS Recs: Dispo: Remain in SICU Code Status: [...] PCO2 38 04/18/2025 PO2ART 136 (H) 04/18/2025 SZE5EGX 23 04/18/2025 BEART -2.3 (L) 04/18/2025 WEC5WRC 96.6 04/18/2025 U9LAXMMS 100 04/18/2025 P:F ratio = No PaO2 [...] Acute Care Surgery, and Surgical Critical Care [facility] Academic Office [phone] For Transfers, call [phone] * Chava Mcgraw RN - 04/21/2025 8:38 AM EDTAssociated Order(s): IP CONSULT TO PICC TEAM Images from the original note were not included. ALEJANDRO PICC placed in right brachial vein. Verified with ECG and approved for immediate use Length: 35CM/0 * ASIM Enriquez, AJ - 04/19/2025 8:31 AM EDT HEALTH Care Management/Social Work Assessment Patient Information Patient Name: Mindy Wade Hospital Day: 1 Inpatient/Observation: Inpatient Admit Date: 04/18/2025 Admission Diagnosis: Liver transplant recipient (CMS-HCC) [Z94.4] Attending provider: Ludin Jose MD PCP: GEOFF GRAVES DO [place] [facility]: [facility] [address] [facility] [address] [id number] [address] [place] [address] [place] [address] [facility] [address] [place], [place] [address] [place] [address] Pertinent Medications Anticoagulation therapy: No New Diabetic: [...] Abuse Date: 07/24/23 Treatment History: Outpatient [facility] Do you need Substance Abuse Treatment Resources?: No Substance Abuse Treatment Resources Provided: none Social Work Consult for Substance Abuse Ordered?: No Suicide Attempts: No Activities of Daily Living: Independent Work History: Disabled Marital Status: Number of children and their names: Raymundo HallShelley hawthorne Relative Search Completed: No Demographics Correct:: Yes [...] to [facility] Status & Connection to [place] Services Are you a ?: No Support Systems Emergency contact: Extended Emergency Contact Information Primary Emergency Contact: KHLOE WADE Mobile Relation: Spouse Support Systems Legal Status: N/A Primary Caregiver: Self Marital Status: Number of children and their names: Raymundo HallleighShelley Relative Search Completed: No Demographics Correct:: Yes Expected Discharge Disposition: Home with Home Care Next of Kin: Khloe Wade Next of Kin Relationship: Spouse Next of Kin Assessment Information Obtained From:: Patient, Chart Review Other Pertinent Information SW consult request reviewed and completed. OPAL Chung verified demographic and emergency contact information. [facility] verified patients LNOKand HCPOA and assessment was completed by chart review. [facility] will provide active listening and willwork with patient's family, medical team and any community providers to assist in coordination of care for discharge planning. SWCM will provide intervention and contact based on the patient and family's needs. SWCM verified patient's supports at discharge. SWCM discussed transplant needs, follow up appointments, and [...] Patient reported that she is not a [place]. Patient reported she is receiving chcf disability. Patient does not report financial concerns/difficulties [...] July 2023. Patient has been to [facility] for substance use treatment. Patient does not use home oxygen, DME use, or dialysis. Patient has no history of shelter facility or inpatient rehabilitation facility admissions. Patient has no history of home health care services. PCP: Geoff Graves SWCM confirmed with patient/family that there are no additional [facility] needs at this time. provided the family with SW contact [phone]. Patient/Family aware and taking part in the [...] financial interest(s) are disclosed as appropriate. ASIM ENRIQUEZ, AJ [phone] * Geoff Jurado Torsten, RD - 04/19/2025 7:35 AM EDTAssociated Order(s): IP CONSULT TO NUTRITION SERVICES TXP - Initial [facility] Medical Nutrition Therapy Reason(s) for Completion: Physician/Nursing [...] I/O: +3.6L net volume. Last BM Date: (). Admit Weight: 156 lb (70.8 kg) Current [...] in this interval not displayed. Recent Labs 10/27/25 1859 04/18/25221104/18/252318 NA 139 139 139 K 3.6 3.6 3.7 CL 108 110 109 CO2 20* 22 23 BUN 11 14 14 CREATININE 0.66 0.65 0.65 GLUCOSE 163* 152* 156* CALCIUM 8.1* 7.8* 7.8* MG 2.2 2.2 2.2 PHOS 3.7 3.5 3.5 Recent Labs 04/18/25 0603 04/18/25 18504/18/25221104/18/252318 AST 37 195* -- 203* ALT 25 127* -- 139* BILITOT 1.5 5.1* -- 4.5* BILIDIRECT 0.53* 2.86* -- 2.41* ALKPHOS 118 53 -- 55 ALBUMIN 3.8 3.8 2.7* 2.7* 2.8* 2.8* 2.8* Recent Labs 04/18/25 1352 04/18/25 1405 04/18/25 1654 04/18/25185804/18/252318 INR 1.9* < > 1.6* 1.8* 1.8* PROTIME 23.1* -- -- 21.5* 21.8* < > = values in this interval not displayed. No results for input(s): HGBA1C in the last 72 hours. Past 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: Diagnosis Date Abdominal hernia 02/21/2023 Alcoholic hepatitis (CMS-HCC) Anxiety Ascites Chronic diarrhea 08/21/2022 Cirrhosis ([facility]-H[facility]) Cystitis Depression Hepatitis C Past Surgical History: [...] Based on DBW of 68.1 kg Kcals/day: 9461-2734 (25-30 kcals/kg) Protein g/day: 100-140 (1.5-2.0 g/kg) [...] Dietitian - Solid Organ Transplant Contact via [employer] Chat * Judith Murcia MD - 04/18/2025 [...] 107/69 -- -- 79 12 100 % 04/18/256 -- -- -- -- -- 98 % 04/18/250 104/66 -- -- 81 10 98 % [...] Total RSBI: 11 (04/18/252245) Blood Gas: Lab 04/18/25224504/18/251858 PH ARTERIAL 7.38 7.40 PCO2 ARTERIAL 38 33* PO2 ARTERIAL 136* 158* HCO3 ARTERIAL 23 22 BASE EXCESS ARTERIAL -2.3* -3.6* % HBO2 96.6 95.1 O2 SATURATION ARTERIAL 100 100 - P:F Ratio: 340 IBW: Jackhorn body weight: 57 kg (125 lb 10.6 [...] Hemodynamics: No data found. 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 Current Diet: Diet/Nutrition Orders Diet NPO Frequency: Effective Now Number of Occurrences: Until Specified Prealbumin: A/P: #Risk for Malnutrition - NPO per primary team FLUIDS / ELECTROLYTES Labs: Lab 04/18/25221104/18/25185804/18/25 0603 SODIUM 139 139 138 POTASSIUM 3.6 3.6 3.3* CHLORIDE 110 108 104 CO2 22 20* 26 BUN 14 11 12 CREATININE 0.65 0.66 0.77 GLUCOSE 152* 163* 89 CALCIUM 7.8* 8.1* 9.0 MAGNESIUM 2.2 2.2 2.2 PHOSPHORUS 3.5 3.7 3.8 EGFR >90 >90 >90 Admission Wt: Weight: 156 lb (70.8 kg) Current Wt: Weight: 156 lb (70.8 kg) Intake/Output: Date 04/17/252299 - 04/18/25658(Not Admitted) 04/18/25 0700 - 04/19/25 0659 Shift 4551-6264 24 Hour Total 4062-1592 2851-9794 8020-4511 24 Hour Total INTAKE P.O. 0 0 [...] in sodium chloride 0.9 % 250 mL Rimg9Bcy) 298.3 298.3 Volume (mL) (ciprofloxacin (CIPRO) 400 mg in dextrose 5% 200 mL IVPB) 200 200 400 Volume (mL) (albumin human bottle 5%) 1500 1500 Volume (mL) (AMPicillin 1 g in sodium chloride 0.9% 100 mL IVPB (Hhoy8Ecy)) 100 100 Volume (mL) (mycophenolate (CELLCEPT) 500 mg in dextrose 5% in water (D5W) 50 mL IVPB) 19.2 19.2 Shift Total(mL/kg) 7848.3(110.9) 4567.9(64.6) 05421.3(175.5) OUTPUT Urine(mL/kg/hr) 500(0.9) 550(1) 1050 Urine 500 [...] at 04/18/20252199 Gross per 24 hour Intake 00367.27 ml Output 9175 ml Net 3241.27 ml [...] - q6 renal, Mg RENAL Labs: Lab 04/18/25221104/18/25 1859 04/18/25 0603 CO2 22 20* 26 BUN 14 11 12 CREATININE 0.65 0.66 0.77 EGFR >90 >90 >90 Lab 04/18/25 2246 04/18/259 PH ARTERIAL 7.38 7.40 PCO2 ARTERIAL 38 [...] - No active issues HEMATOLOGIC Labs: Lab 04/18/25185804/18/25 1700 04/18/25 1600 04/18/25 1506 04/18/25 1410 [...] values in this interval not displayed. Lab 04/18/25185804/18/25 1352 04/18/25 0603 INR 1.8* 1.9* 1.1 Lab 04/18/25185804/18/25 1352 04/18/25 0603 FIBRINOGEN LEVEL [...] ENDOCRINE Glucose Range: Lab 04/18/25 2212 04/18/25 22004/18/25 2111 04/18/25 2005 04/18/25 1859 04/18/25 1700 [...] - TITRATABLE NURSING PROTOCOL (HYPERGLYCEMIA) 0-28 Units/hr Knkpvlkpbl42/27/2025 04/19/2025 Admin Instructions: FOR O.R. USE only. [...] in sodium chloride 0.9% 100 mL IVPB (Ewxs2Ccb) 1 g Every 6 hours 04/18/2025 04/20/2025 Admin Instructions: Dosage may need to be adjusted for renal dysfunction. Full dose is 1g IV q6h Use Uveh2Uda Adapter - Mix Thoroughly Before Administration Notes to Pharmacy: On mail order clerk estimated creatinine clearance is 100.6 mL/min (based [...] in sodium chloride 0.9 % 250 mL Blxf4Xby (Completed) 20 mg/kg ?? 71.6 kg Once 04/18/2025 04/18/2025 Admin Instructions: Begin infusion 120 minutes prior to incision Use Qahp0Xad Adapter - Mix Thoroughly Before Administration Route: Intravenous Linked Group 2: Placed in And Linked Group A/P: #Antibiotics - Perioperative Abx: vanc, ampicillin, ceftriaxone, cipro #Immunosuppression Steroid taper Per TXP team NEUROLOGIC Exam: No focal signs, moving all four extremities GCS: Heath Coma Scale Score: 11 (Eye Openin, Best [...] - PT Recs: - OT Recs: - SUPERVISOR CONTINGENTS Recs: Dispo: Remain in SICU Code Status: [...] 33 (L) 04/18/2025 PO2ART 158 (H) 04/18/2025 GFN3MME 22 04/18/2025 BEART -3.6 (L) 04/18/2025 EOP8VLB 95.1 04/18/2025 A6NHLHGR 100 04/18/2025 P:F ratio = 316 CARDIOVASCULAR: [...] Acute Care Surgery, and Surgical Critical Care [facility] Academic Office [phone] For Transfers, call [phone] documented in this encounter Nursing Notes * [...] 04/27/2025 10:39 PM EST Patient transferred to 801 on 8CCP per order. Patient transported with CMU cardiac monitoring, TPN, and antibiotic infusing. Report given to receiving KONSTANTIN Alston. Dose of IV Cellcept for 0 given torshay PRYOR. Patient transferred with all [...] via bed. All questions answered. Notified pt's printed circuit boards contact printer of transfer. Yaima Cohen RN * Estela [...] black med box, with lock intact, to [facility] the OR Diabetologist at 21:30. documented in this encounter Miscellaneous Notes * Home Health Care Note - Giovanny Louis MD - 05/03/2025 2:05 PM EST Images from the original note were not included. REFERRAL FOR HOME HEALTH SERVICES FORM Patient name: Mindy Wade Patient : 1990 Age: 35 y.o. Gender: female SSN: [id number] Address: [address] [place], [place] [address] Phone number: [phone] Patient emergency contact: Extended Emergency Contact Information Primary Emergency Contact: KHLOE WADE Mobile Relation: Spouse Date of admission: 04/18/2025 Date of discharge: 05/03/2025 Attending provider: Jose Daniel MD Primary care physician: GEOFF GRAVES DO Code status: Full Code Allergies: Allergies[1] Insurance Information Insurance Information AETNA MANAGED MEDICARE/AETNA MEDICARE Phone: -- Subscriber: Mindy Wade Subscriber#: [id number] Group#: [id number] Precert#: [id number] Authorization#: [id number] Effective Date: -- Diagnoses Present on Admission [...] high protein supplement Regular Diet Services Required Detention: vital signs, med management, lab draws Physical [...] 120 capsule Refills: 5 naloxone 4 mg/actuation [place] Commonly known as: NARCAN Apply 1 spray [...] Your Medications These medications were sent to [facility] [address] [place] [address] Hours: Friday - Friday: 8:00AM - 6:00PM acetaminophen 325 MG tablet aspirin 81 MG chewable tablet calcium-vitamin D 500 mg-5 mcg (200 unit) per tablet fluconazole 200 MG tablet lidocaine 5 % melatonin 3 mg Tab methocarbamoL 500 MG tablet mycophenolate 250 mg capsule naloxone 4 mg/actuation [place] oxyCODONE 5 MG immediate release tablet oxyCODONE [...] level (prior to am tacro dose) every /Th. Fax results to liver transplant clinic at [phone]. NURSE VISIT: Please check vitals and assess/monitor surgical incision every Mon/Th. Isolation Patient Isolation Status None to display [...] % Equipment/Supplies No current labs Ordering Physician: HARLEENI [LUDIN JOSE MD] Physician Certification Further, I certify that my clinical findings support that this patient is homebound (i.e. absences from home require considerable and taxing effort and are for medical reasons or temple services or infrequently or short duration when for other reasons) due to deconditioning it would be a taxing effort to receive outpatient services. My signature below is to certify that this patient is under my care and that I, or nurse practitioner, or a physician assistant store manager sales working with me, had a goju-fc-ebxf encounter with this is patient on: 05/03/2025 Follow-up Appointments and Post Hospital Discharge Physician Name Future Appointments Date Time Provider Department Center 05/10/2025 8:20 AM [facility] SURGERY, [facility] [address] [address] Discharging Physician Signature and Credentials Discharging Physician: Electronically signed by GIOVANNY LOUIS MD 05/03/2025, 2:05 PM Physician to follow up Information PCP: GEOFF GRAVES DO PCP address: [address] [place] [address] / [place] [id number] PCP phone number: [phone] PCP fax number: [phone] Follow-up: [facility] and their phone / fax is: [phone] / [phone] Inspector Outside [employer] and Credentials Provider/Company Name and Contact Number: Inspector [employer] Name and Telephone Number: [1] No Known [...] Asya Curry - 05/02/2025 1:33 PM EST [facility] Case Management/Social Work Department Progress Note Patient [...] C. PCP: GEOFF GRAVES DO Home Pharmacy: [facility] [address] [facility] [address] [id number] - [place] [address] [facility] [address] [facility] [address] [place] [address] [address] [facility] [address] [facility] 494 - [place], [place] - [address] [facility] [address] [address] Medical Insurance Coverage: Payor: AETNA MANAGED MEDICARE / Plan: AETNA MEDICARE / Product Type: *No Product type* / Other Pertinent Information SW received update from medical team, completed chart review. Per team, pt is not medically ready for discharge. Patient accepted with [facility] ([phone]) for PT/OT, SN, and 2x weekly labs. Patient will need RW at discharge, Philip unable to cover due to insurance. Team made aware. Discharge Plan Anticipated discharge plan: Home with [facility] Anticipated discharge date: 05/03 CM/SW will continue to follow and remain available for discharge planning needs. ASIM Jackson, HISTORICAL MANUSCRIPTS CURATOR Software Reliability Engineer/Food Service Ambassador (Float) Can be reached by Ebu[employer] and Teads [phone] or Hopper secure chat * Plan of Care - [...] Silveira RN - 04/30/2025 12:26 PM EST [facility] Case Management/Social Work Department Progress Note Patient Information Patient Name: Mindy Wade Hospital day: 12 Inpatient/Observation: Inpatient Level of Care: floor Admit date: 04/18/2025 Admission diagnosis: Liver transplant recipient (CMS-HCC) [Z94.4] S/P liver transplant (CMS-HCC) [Z94.4] End stage liver disease (CMS-HCC) [K72.10] PMH: has a past medical history of Abdominal hernia (02/21/2023), Alcoholic hepatitis ([facility]-HCC), Anxiety, Ascites, Chronic diarrhea (08/21/2022), Cirrhosis ([facility]-HCC), Cystitis, Depression, and Hepatitis C. PCP: GOEFF GRAVES, Home Pharmacy: [facility] [address] [facility] [address] [id number] - [place], [place] - [address] [address] [address] [facility] [address] [place] [address] [place] [address] [facility] [address] [facility] [place] [address] [facility] [address] [place] [address] Medical Insurance Coverage: Payor: AETNA MANAGED MEDICARE / Plan: AETNA MEDICARE / Product Type: *No Product type* / Other Pertinent Information Per HOTEL RESERVATIONIST, Pt is not medically ready fro discharge at this time. Pt still has high drain output at this time. Team will continue with diuresis with albumin and assess ascites production. RNCM/SW will continue to follow. Discharge Plan Anticipated discharge plan: Team will continue to monitor Pts progress towards discharge to home with [facility]. Anticipated discharge date: ~5 days CM/SW will [...] Asya Curry - 04/29/2025 12:12 PM EST [facility] Case Management/Social Work Department Progress Note Patient [...] C. PCP: GEOFF GRAVES, DO Home Pharmacy: [facility] [address] [facility] [address] [facility][id number] - [place], [place] [address] [address] [place] [address] [facility] - [place] - [address] [facility] [address] [facility] [place] [address] Medical Insurance Coverage: Payor: AETNA MANAGED MEDICARE / Plan: AETNA MEDICARE / Product Type: *No Product type* / Other Pertinent Information SW received update from medical team, completed chart review. Per team, pt is not medically ready for discharge. [facility][phone][facility] for PT/OT, SN, and 2x weekly labs. Patient will need RW at discharge, Philip unable to cover due to insurance. Team made aware. Discharge Plan Anticipated discharge plan: Home with [facility] Anticipated discharge date: 05/01 CM/SW will continue to follow and remain available for discharge planning needs. ASIM Jackson, HISTORICAL MANUSCRIPTS CURATOR Software Reliability Engineer/Food Service Ambassador (Float) Can be reached by Ebuzzing and Teads [phone] or Hopper secure chat * Plan of Care - [...] Macias RN - 04/28/2025 12:25 PM EST [facility] Case Management/Social Work Department Progress Note Patient [...] and Hepatitis C. PCP: GEOFF GRAVES DO [place] Pharmacy: [facility] [address] [place] [address] [id number] - [place], [place] - [address] [address] [address] [facility] [address] [place] [address] [place] [address] [facility] 5[address] - [facility] [place] [address] [facility] [address] [place] [address] Medical Insurance Coverage: Payor: AETNA MANAGED MEDICARE / Plan: AETNA MEDICARE / Product Type: *No Product type* / Other Pertinent Information KONSTANTIN JOSEPH attended rounds and received an update from [...] sent and pt has been accepted by [facility] [phone]. Discharge Plan Anticipated discharge plan: [facility] vs Out pt Rehab Anticipated discharge date: 05/03 CM/SW will continue to follow and remain available for discharge planning needs. Alma LUNAN RN Care Management Services Float [phone] * Plan of Care - Shaneka Gerber [...] Johnson RN - 04/27/2025 11:23 AM EST [facility] Case Management/Social Work Department Progress Note Patient [...] C. PCP: GEOFF GRAVES, DO Home Pharmacy: [facility] [address] [facility] [address] [id number] - [place], [place] - [address] [facility] [address] [place] [address] [facility] 59 - [place] [address] [facility] 8[address] [facility] [place] [address] Medical Insurance Coverage: Payor: AETNA MANAGED MEDICARE [...] drawn at facility. UPDATE: Call received from [facility] they are unable to accept. Discharge [...] Care Coordination - ASIM Enriquez, AJ - 04/26/2025 3:19 PM EST [facility] Case Management/Social Work Department Progress Note Patient [...] C. PCP: GEOFF GRAVES DO Home Pharmacy: [facility] [address] [facility] [address] [facility][id number] - [place], [place] - [address] [facility] [address] [facility] [address] [place] [address] [place] [address] [facility] [address] [place] [address] Medical Insurance Coverage: Payor: AETNA MANAGED MEDICARE / Plan: AETNA MEDICARE / Product Type: *No Product type* / Other Pertinent Information SWCM attended multidisciplinary rounds with the Transplant Team. SWCM reviewed patient's chart. Pertea, patient is not medically ready to discharge. SWCM sent IPR list via Repisodic to patient [...] for discharge planning needs. ASIM ENRIQUEZ, AJ [phone] * Plan of Care - Sergey Rodas [...] provide high-protein, high- caloric foods as appropriate. 04/25/2025 144 by Bita Lo RN Outcome: [...] of medical procedures, or protection of medical records secretary access. 04/25/2025 144 by Bita Lo RN Outcome: Progressing 04/25/2025 144 by Bita Lo RN Outcome: Progressing Problem: Non-violent, zwe-cmaw-bsdrbeycxwy restraints Description: Less restrictive alternative interventions will [...] sit with patient, frequent reorientation, or repositioning. 04/25/2025 144 by Bita Lo RN Outcome: Progressing 04/25/20251440 by Bita Lo RN Outcome: Progressing Problem: High Fall Risk Precautions Goal: High Fall Risk Precautions 04/25/2025 144 by Bita Lo RN Outcome: Progressing 04/25/20251440 by Bita Lo RN Outcome: Progressing * Plan of Care - Bita Lo RN - 04/25/2025 2:41 PM EST Problem: High Fall Risk Precautions Goal: High Fall Risk Precautions 04/25/2025 1441 by Bita Lo RN Outcome: Progressing 04/25/2025 144 by Bita Lo RN Outcome: Progressing Problem: Non-violent, kgp-eysj-lzrosqubyjp restraints Description: Less restrictive alternative interventions will [...] Care Coordination - ASIM Enriquez LSW - 04/25/2025 1:17 PM EST [facility] Case Management/Social Work Department Progress Note Patient [...] Hepatitis C. PCP: GEOFF GRAVES, Home Pharmacy: [facility] [address] [facility] [address] [facility][id number] - [place], [place] [address] [place] [address] [facility] 592 - [place] [address] [facility] [address] [facility] [place] [place] [address] Medical Insurance Coverage: Payor: AETNA MANAGED MEDICARE / Plan: AETNA MEDICARE / Product Type: *No Product type* / Other Pertinent Information SWCM attended multidisciplinary rounds with the Transplant Team. SWCM reviewed patient's chart. Pertea, patient is not medically ready to discharge. Patient is set up with [facility] [phone] for PT/OT-SN-2x weekly labs. Discharge Plan Anticipated discharge plan: Home w [facility] Anticipated discharge date: 04/29 CM/SW will continue to follow and remain available for discharge planning needs. ASIM ENRIQUEZ, AJ [phone] * Plan of Care - Jaydon Brandt [...] Admitted to SICU post op. [facility] and had a rapid [...] PCO2 40 04/24/2025 PO2ART 107 (H) 04/24/2025 LJZ7XSS 23 04/24/2025 BEART -2.0 04/24/2025 SJF8JID 97.3 04/24/2025 Q5UXRACP 100 04/24/2025 P:F ratio = 268 Passed [...] Acute Care Surgery, and Surgical Critical Care [facility] Academic Office [phone] For Transfers, call [phone] * Plan of Care - Elza Ramírez RN - 04/23/2025 8:00 AM EDT Patient in bilateral soft wrist restraints to maintain patient safety and protect medical devices. Will continue to monitor and reassess need for restraints. See restraint flowsheet for further documentation. Problem: Non-violent, xuj-ajsq-xpenhctqngk restraints Description: Less restrictive alternative interventions will [...] of medical procedures, or protection of medical records secretary access. Outcome: Progressing * Plan of Care [...] Recent Labs 04/21/25 0900 04/22/25 0606 04/22/25 230 NA 136 137 133 K 4.1 4.2 [...] Care Coordination - ASIM Enriquez, AJ - 04/22/2025 2:03 PM EDT [facility] Case Management/Social Work Department Progress Note Patient [...] Hepatitis C. PCP: GEOFF GRAVES, Home Pharmacy: [facility] [address] [facility] [address] [id number] - [facility] [place] - [address] [place] [address] [address] [place] [address] [address] [place] [address] [place] [address] [facility] 591 - [place], [place] - [address] [place] [address] Medical Insurance Coverage: Payor: AETNA MANAGED MEDICARE [...] at home. Patient is set up with [facility] [phone] for PT/OT-SN-2x weekly labs. Discharge Plan Anticipated discharge plan: Home w [facility] Anticipated discharge date: 04/25 CM/SW will continue to follow and remain available for discharge planning needs. ASIM ENRIQUEZ, HISTORICAL MANUSCRIPTS CURATOR [phone] * Plan of Care - Marilee Ramsey [...] require a tub transfer bench for discharge. CCA advised patient insurance does not cover tub transfer bench, it will be an out of pocket expense of $75.00. Shelly Vick [employer] [facility] [phone] * Care Coordination - ASIM Enriquez LSW - 04/21/2025 11:42 AM EDT [facility] Case Management/Social Work Department Progress Note Patient [...] Hepatitis C. PCP: GEOFF GRAVES, Home Pharmacy: [facility] [address] [facility] [address] [id number] - [place], [place] - [address] [place] [address] [facility] - [place] [address] [facility] [address] [facility] [place] [place] [address] Medical Insurance Coverage: Payor: [employer] MANAGED MEDICARE / Plan: [employer] MEDICARE / Product Type: *No Product type* / Other Pertinent Information SWCM attended multidisciplinary rounds with the Transplant Team. SWCM reviewed patient's chart. Perteam, patient is not medically ready to discharge. Patient is set up with [facility] [phone] for PT/OT-SN-2x weekly lab draws. DME-tub transfer bench-is not covered by insurance. Discharge Plan Anticipated discharge plan: Home w [facility] Anticipated discharge date: 04/23 CM/SW will continue to follow and remain available for discharge planning needs. ASIM ENRIQUEZ, AJ [phone] * Care Coordination - Krys Vick - 04/20/2025 3:10 PM EDT CCA was advised patient require [facility] for PT/OT-SN-2x weekly labs for discharge. CCA sent referrals, awaiting response. CCA will follow. [facility] [phone] accepted patient for home pt/ot/sn. -this has been communicated to the team. Shelly Vick [employer] [facility] [phone] * Plan of Care - Marylu Haddad [...] - 04/19/2025 1:01 AM EDT Problem: Non-violent, spu-peam-isoxpwtvyof restraints Description: Less restrictive alternative interventions will [...] of medical procedures, or protection of medical records secretary access. 04/19/2025 010 by Enedina Spear RN Outcome: Completed 04/19/202599 by Enedina Spear RN Outcome: Progressing * Plan of Care - Enedina Spear RN - 04/18/2025 8:00 PM EDT Problem: High Fall Risk Precautions Goal: High Fall Risk Precautions Outcome: Progressing Problem: Non-violent, ysj-moyk-iytkwwjbtwj restraints Description: Less restrictive alternative interventions will [...] of medical procedures, or protection of medical records secretary access. Outcome: Progressing Patient in bilateral locked [...] Routine 04/29/2025 11:54 AM EST US DUPLEX [id number] COMPLETE STAT 04/29/2025 11:18 AM EST US [...] Routine 04/25/2025 11:34 AM EST US DUPLEX [id number] COMPLETE STAT 04/25/2025 10:36 AM EST US ABDOMEN LIMITED STAT 04/25/2025 10:36 AM EST FREE CALCIUM, WHOLE BLOOD Routine 04/25/2025 8:13 AM EST TACROLIMUS LEVEL Timed 04/25/2025 8:13 AM EST LACTIC ACID, ARTERIAL, WHOLE BLOOD Routine 04/25/2025 8:13 AM EST CBC Routine 04/25/2025 8:13 AM EST BLOOD GAS, ARTERIAL Routine 04/25/2025 8 :13 AM EST HEPATIC FUNCTION PANEL Routine 11/03/202 5 5:18 AM EST RENAL FUNCTION PANEL W/EGFR [...] Routine 04/23/2025 6:09 PM EDT US DUPLEX [id number] COMPLETE STAT 04/23/2025 2:12 PM EDT US [...] ALL CHANNELS) STAT 04/23/2025 9:37 AM EDT TRANSFUSE RED BLOOD CELLS STAT [...] ARTERIAL STAT 04/23/2025 7 :45 AM EDT SMALL BOWEL ENTEROSCOPY Routine 04/23/2025 6:01 AM [...] Routine 04/21/2025 12:31 PM EDT US DUPLEX [id number] COMPLETE STAT 04/21/2025 9:47 AM EDT US [...] Routine 04/19/2025 12:37 PM EDT US DUPLEX [id number] COMPLETE STAT 04/19/2025 11:03 AM EDT US [...] AM EDT XR PORTABLE CHEST STAT 04/19/2025 2:50 AM EDT HIGH SENSITIVITY TROPONIN STAT 04/19/2025 [...] Units (05/04/2025 6:15 AM EST) Product Code B6181I28 HCLL Unit Number [id number] HCLL Dispense Status Presumed Transfused_PT HCLL Blood Expiration Date [id number] HCLL Coding System [id number] HCLL Blood Bank Product Gloria Chen MD BLOOD BANK PRODUCT ORDERABLES Fi nal Result HCLL * Transfuse RBC Transfusion Rate: Per dept routine (05/03/2025 2:58 PM EST) Gloria Chen MD NURSING TREATMENT ORDERABLES - B LOOD ADMIN Final Result EXTERNAL * Transfuse RBC Transfusion Rate: Per dept routine, 1 Units (05/03/2025 2:58 PM EST) Gloria Chen MD NURSING TREATMENT ORDERABLES - B LOOD ADMIN Final Result EXTERNAL * (ABNORMAL) POC Glucose Monitoring Device (05/03/2025 12:17 PM EST) POC Glucose Monitoring Device 176(H) 70 - 100 mg/dL 05/03/2025 12:18 PM EST [facility] Blood 05/03/2025 12:1 7 PM EST 05/03/2025 12:18 PM EST us Ludin Jose MD POINT OF CARE TEST ORDERABLES Fi nal Result Performing Organization Address City/[facility]/ZIP Co de Phone Number [address] * Antibody Screen (05/03/2025 9:05 AM EST) Antibody Screen Negative 05/03/2025 10:12 AM EST [facility] Blood 05/03/2025 9:05 AM EST 05/03/2025 9:16 AM EST Narrative [facility] - 05/03/2025 10:29 AM EST Testing performed by [facility] Transfusion Service us Gloria Chen MD BLOOD BANK TEST ORDERABLES Final Result Performing Organization Address [facility] Co de Phone Number [address] * ABO/Rh (05/03/2025 9:05 AM EST) ABO Grouping O 05/03/2025 9:58 AM EST [facility] Rh Type Positive 05/03/2025 9:58 AM EST [facility] Blood 05/03/2025 9:05 AM EST 05/03/2025 9:16 AM EST us Gloria Chen MD BLOOD BANK TEST ORDERABLES Final Result Performing Organization Address City/[facility]/ZIP Co de Phone Number [facility] [address] [place] [address]. [address] * POC Glucose Monitoring Device (05/03/2025 7:52 AM EST) POC Glucose Monitoring Device 99 70 - 100 mg/dL 05/03/2025 7:53 AM EST [facility] Blood 05/03/2025 7:52 AM EST 05/03/2025 7:53 AM EST us Ludin Jose MD POINT OF CARE TEST ORDERABLES Fi nal Result [facility] [address] [place] [address], [place] * (ABNORMAL) Renal Function Panel w/EGFR (05/03/2025 5:46 AM EST) Sodium 135 133 - 146 mmol/L 05/03/2025 6:38 AM EST [facility] Potassium 4.3 3.5 - 5.3 mmol/L 05/03/2025 6:38 AM EST [facility] Chloride 103 98 - 110 mmol/L 05/03/2025 6:38 AM EST [facility] CO2 25 21 - 33 mmol/L 05/03/2025 6:38 AM [facility] Comment:High lactate dehydro genase concentrations in patient samples may cause falsely increased bicarbonate results. If markedly elevated LDH is observed or suspected, please assess results in conjunction with patient`s clinical presentation. In cases of discrepant results, consider evaluating CO2 in with a blood gas order. Anion Gap 7 3 - 16 mmol/L 05/03/2025 6:38 AM EST [facility] BUN 37(H) 7 - 25 mg/dL 05/03/2025 6:38 AM EST [facility] Creatinine 1.16 0.60 - 1.30 mg/dL 05/03/2025 6:38 AM [facility] Glucose 100 70 - 100 mg/dL 05/03/2025 6:38 AM [facility] Calcium 8.3(L) 8.6 - 10.3 mg/dL 05/03/2025 6:38 AM EST [facility] Phosphorus 2.8 2.1 - 4.7 mg/dL 05/03/2025 6:38 AM EST [facility] Albumin 3.5 3.5 - 5.7 g/dL 05/03/2025 6:38 AM [facility] Osmolality, Calculated 289 278 - 305 mOsm/kg 05/03/2025 6:38 AM EST [facility] EGFR 63 05/03/2025 6:38 AM [facility] Comment:As of 2021, the [...] ORDERABLES Final Re sult Performing Organization Address [facility]/ZIP Co de Phone Number [facility] [address] [facility]. [address] * Magnesium (05/03/2025 5:46 AM EST) Magnesium 1.9 1.5 - 2.5 mg/dL 05/03/2025 6:38 AM EST [facility] Plasma 05/03/2025 5:46 AM EST 05/03/2025 6:11 AM EST Raya CRUZ LAB BLOOD ORDERABLES Final Re sult Performing Organization Address [facility] Co de Phone Number [facility] [address] [facility]. [address] * (ABNORMAL) Hepatic Function Panel (05/03/2025 5:46 AM EST) Total Bilirubin 2.4(H) 0.0 - 1.5 mg/dL 05/03/2025 6:38 AM EST [facility] Bilirubin, Direct 1.31(H) 0.00 - 0.40 mg/dL 05/03/2025 6:38 AM EST [facility] AST 54(H) 13 - 39 U/L 05/03/2025 6:38 AM EST [facility] ALT 108(H) 7 - 52 U/L 05/03/2025 6:38 AM EST [facility] Alkaline Phosphatase 849(H) 36 - 125 U/L 05/03/2025 6:38 AM EST [facility] Total Protein 4.7(L) 6.4 - 8.9 g/dL 05/03/2025 6:38 AM EST [facility] Albumin 3.5 3.5 - 5.7 g/dL 05/03/2025 6:38 AM EST [facility] Bilirubin, Indirect 1.09 0.00 - 1.10 mg/dL 05/03/2025 6:38 AM EST [facility] Plasma 05/03/2025 5:46 AM EST 05/03/2025 6:11 AM EST us Raya CRUZ LAB BLOOD ORDERABLES Final Re sult [facility] [address] [place] [address], [place] * (ABNORMAL) CBC (05/03/2025 5:46 AM EST) WBC 5.4 3.8 - 10.8 10E3/uL 05/03/2025 6:24 AM EST [facility] RBC 2.26(L) 3.80 - 5.10 10E6/uL 05/03/2025 6:24 AM [facility] Hemoglobin 7.1(L) 11.7 - 15.5 g/dL 05/03/2025 6:24 AM [facility] Hematocrit 20.9(L) 35.0 - 45.0 % 05/03/2025 6:24 AM [facility] MCV 92.3 80.0 - 100.0 fL 05/03/2025 6:24 AM EST [facility] MCH 31.3 27.0 - 33.0 pg 05/03/2025 6:24 AM EST [facility] MCHC 33.9 32.0 - 36.0 g/dL 05/03/2025 6:24 AM [facility] RDW 21.0(H) 11.0 - 15.0 % 05/03/2025 6:24 AM [facility] Platelets 147 140 - 400 10E3/uL 05/03/2025 6:24 AM [facility] MPV 11.1 7.5 - 11.5 fL 05/03/2025 6:24 AM EST [facility] Whole Blood 05/03/2025 5:46 AM EST 05/03/2025 6:11 AM EST Raya CRUZ LAB BLOOD ORDERABLES Final Re sult Performing Organization Address [facility] Co de Phone Number [facility] [address] [place] [address]. [address] * Tacrolimus level (05/03/2025 5:46 AM EST) Tacrolimus (LC-MS) 7.2 3.0 - 15.0 ng/mL 05/03/2025 10:24 AM EST [facility] Comment:Performed via liquid chromatography tandem mass spectrometry. Detection limit: 1 ng/mL. Individual target concentrations may vary due to target organ and time after transplant. This test has been developed and its performance characteristics determined by [facility] which is certified under the [...] ORDERABLES Final Resul t Performing Organization Address [facility] Co de Phone Number [facility] [address] [facility]. [address] * (ABNORMAL) POC Glucose Monitoring Device (05/02/2025 9:09 PM EST) POC Glucose Monitoring Device 138(H) 70 - 100 mg/dL 05/02/2025 9:10 PM EST [facility] Blood 05/02/2025 9:09 PM EST 05/02/2025 9:09 PM EST us Ludin Jose MD POINT OF CARE TEST ORDERABLES Fi nal Result [facility] [address] [facility]. [address] * (ABNORMAL) POC Glucose Monitoring Device (05/02/2025 5:02 PM EST) POC Glucose Monitoring Device 184(H) 70 - 100 mg/dL 05/02/2025 5:03 PM EST [facility] Blood 05/02/2025 5:02 PM EST 05/02/2025 5:03 PM EST us Ludin Jose MD POINT OF CARE TEST ORDERABLES Fi nal Result Performing Organization Address City/[facility] Co de Phone Number [facility] [address] [facility]. [address] * POC Glucose Monitoring Device (05/02/2025 10:52 AM EST) POC Glucose Monitoring Device 100 70 - 100 mg/dL 05/02/2025 10:53 AM EST [facility] Blood 05/02/2025 10:5 2 AM EST 05/02/2025 10:52 AM EST us Ludin Jose MD POINT OF CARE TEST ORDERABLES Fi nal Result Performing Organization Address City/[facility] Co de Phone Number [facility] [address] [facility]. [address] * POC Glucose Monitoring Device (05/02/2025 5:58 AM EST) POC Glucose Monitoring Device 85 70 - 100 mg/dL 05/02/2025 5:58 AM EST [facility] Blood 05/02/2025 5:58 AM EST 05/02/2025 5:58 AM EST us Ludin Jose MD POINT OF CARE TEST ORDERABLES Fi nal Result [facility] [address] [facility]. [address] * (ABNORMAL) Renal Function Panel w/EGFR (05/02/2025 5:34 AM EST) Sodium 135 133 - 146 mmol/L 05/02/2025 6:11 AM [facility] Potassium 4.1 3.5 - 5.3 mmol/L 05/02/2025 6:11 AM [facility] Chloride 103 98 - 110 mmol/L 05/02/2025 6:11 AM [facility] CO2 26 21 - 33 mmol/L 05/02/2025 6:11 AM [facility] Comment:High lactate dehydro genase concentrations in patient samples may cause falsely increased bicarbonate results. If markedly elevated LDH is observed or suspected, please assess results in conjunction with patient`s clinical presentation. In cases of discrepant results, consider evaluating CO2 in with a blood gas order. Anion Gap 6 3 - 16 mmol/L 05/02/2025 6:11 AM [facility] BUN 26(H) 7 - 25 mg/dL 05/02/2025 6:11 AM [facility] Creatinine 0.99 0.60 - 1.30 mg/dL 05/02/2025 6:11 AM [facility] Glucose 79 70 - 100 mg/dL 05/02/2025 6:11 AM [facility] Calcium 8.3(L) 8.6 - 10.3 mg/dL 05/02/2025 6:11 AM [facility] Phosphorus 3.0 2.1 - 4.7 mg/dL 05/02/2025 6:11 AM [facility] Albumin 3.3(L) 3.5 - 5.7 g/dL 05/02/2025 6:11 AM [facility] Osmolality, Calculated 284 278 - 305 mOsm/kg 05/02/2025 6:11 AM [facility] EGFR 76 05/02/2025 6:11 AM [facility] Comment:As of 2021, the [...] ORDERABLES Final Re sult Performing Organization Address City/[facility]/ZIP Co de Phone Number [facility] [address] [facility]. [address] * Magnesium (05/02/2025 5:34 AM EST) Magnesium 1.8 1.5 - 2.5 mg/dL 05/02/2025 6:11 AM EST [facility] Plasma 05/02/2025 5:34 AM EST 05/02/2025 5:42 AM EST Raya CRUZ LAB BLOOD ORDERABLES Final Re sult Performing Organization Address City/[facility]/ZIP Co de Phone Number [facility] [address] [facility]. [address] * (ABNORMAL) Hepatic Function Panel (05/02/2025 5:34 AM EST) Total Bilirubin 3.2(H) 0.0 - 1.5 mg/dL 05/02/2025 6:11 AM EST [facility] Bilirubin, Direct 2.02(H) 0.00 - 0.40 mg/dL 05/02/2025 6:11 AM EST [facility] AST 94(H) 13 - 39 U/L 05/02/2025 6:11 AM EST [facility] ALT 135(H) 7 - 52 U/L 05/02/2025 6:11 AM EST [facility] Alkaline Phosphatase 869(H) 36 - 125 U/L 05/02/2025 6:11 AM EST [facility] Total Protein 4.5(L) 6.4 - 8.9 g/dL 05/02/2025 6:11 AM EST [facility] Albumin 3.3(L) 3.5 - 5.7 g/dL 05/02/2025 6:11 AM EST [facility] Bilirubin, Indirect 1.18(H) 0.00 - 1.10 mg/dL 05/02/2025 6:11 AM EST [facility] Plasma 05/02/2025 5:34 AM EST 05/02/2025 5:42 AM EST us Raya CRUZ LAB BLOOD ORDERABLES Final Re sult [facility] [address] * (ABNORMAL) CBC (05/02/2025 5:34 AM EST) WBC 5.8 3.8 - 10.8 10E3/uL 05/02/2025 5:56 AM EST [facility] RBC 2.26(L) 3.80 - 5.10 10E6/uL 05/02/2025 5:56 AM EST [facility] Hemoglobin 7.3(L) 11.7 - 15.5 g/dL 05/02/2025 5:56 AM [facility] Hematocrit 20.8(L) 35.0 - 45.0 % 05/02/2025 5:56 AM EST [facility] MCV 92.0 80.0 - 100.0 fL 05/02/2025 5:56 AM EST [facility] MCH 32.1 27.0 - 33.0 pg 05/02/2025 5:56 AM EST [facility] MCHC 34.9 32.0 - 36.0 g/dL 05/02/2025 5:56 AM [facility] RDW 20.6(H) 11.0 - 15.0 % 05/02/2025 5:56 AM [facility] Platelets 109(L) 140 - 400 10E3/uL 05/02/2025 5:56 AM [facility] MPV 10.8 7.5 - 11.5 fL 05/02/2025 5:56 AM EST [facility] Whole Blood 05/02/2025 5:34 AM EST 05/02/2025 5:42 AM EST Raya CRUZ LAB BLOOD ORDERABLES Final Re sult Performing Organization Address City/[facility]/ZIP Co de Phone Number [facility] [address] [place] [address]. [address] * (ABNORMAL) Triglycerides (05/02/2025 5:34 AM EST) Triglycerides 254(H) 10 - 149 mg/dL 05/02/2025 6:11 AM EST [facility] Plasma 05/02/2025 5:34 AM EST 05/02/2025 5:42 AM EST Gloria Chen MD LAB BLOOD ORDERABLES Final Resul t Performing Organization Address [facility] Co de Phone Number [facility] [address] [place] [address]. [address] * Tacrolimus level (05/02/2025 5:34 AM EST) Tacrolimus (LC-MS) 7.9 3.0 - 15.0 ng/mL 05/02/2025 9:12 AM EST [facility] Comment:Performed via liquid chromatography tandem mass spectrometry. Detection limit: 1 ng/mL. Individual target concentrations may vary due to target organ and time after transplant. This test has been developed and its performance characteristics determined by [facility] which is certified under the [...] MD LAB BLOOD ORDERABLES Final Resul t [facility] [address] * (ABNORMAL) POC Glucose Monitoring Device (05/01/2025 11:58 PM EST) POC Glucose Monitoring Device 114(H) 70 - 100 mg/dL 05/01/2025 11:58 PM EST [facility] Blood 05/01/2025 11:5 8 PM EST 05/01/2025 11:58 PM EST us Ludin Jose MD POINT OF CARE TEST ORDERABLES Fi nal Result Performing Organization Address City/[facility]/ZIP Co de Phone Number [facility] [address] * MRI Abdomen W and WO [...] 05/02/2025 9:24 AM EST Precious Jhaveri MD [facility] MRI ORDERABLES Fin al Result * (ABNORMAL) POC Glucose Monitoring Device (05/01/2025 11:14 AM EST) POC Glucose Monitoring Device 110(H) 70 - 100 mg/dL 05/01/2025 11:14 AM EST [facility] Blood 05/01/2025 11:1 4 AM EST 05/01/2025 11:14 AM EST Ludin Jose MD POINT OF CARE TEST ORDERABLES Fi nal Result Performing Organization Address [facility] Co de Phone Number [facility] [address] * Protime-INR, STAT (05/01/2025 10:21 AM EST) Protime 13.8 12.1 - 15.1 seconds 05/01/2025 11:14 AM EST [facility] INR 1.0 0.9 - 1.1 05/01/2025 11:14 AM EST [facility] Comment: RECOMMENDED THERAPEUTIC RANGES USING INR : Stable oral anticoagulant therapy: 2.0 - 3.0 Mechanical prosthetic heart valve: 2.5 - 3.5 Recurrent acute myocardial infarction: 2.5 - 3.5 Plasma 05/01/2025 10:2 1 AM EST 05/01/2025 10:29 AM EST Shannon Johns MD LAB BLOOD ORDERABLES Final Res ult Performing Organization Address [facility] Co de Phone Number [facility] [address] * POC Glucose Monitoring Device (05/01/2025 7:38 AM EST) [facility] POC Glucose Monitoring Device 100 70 - 100 mg/dL 05/01/2025 7:38 AM EST [facility] Blood 05/01/2025 7:38 AM EST 05/01/2025 7:38 AM EST Ludin Jose MD POINT OF CARE TEST ORDERABLES Fi nal Result Performing Organization Address [facility] de Phone Number [facility] [address] * (ABNORMAL) Renal Function Panel w/EGFR (05/01/2025 6:09 AM EST) Sodium 136 133 - 146 mmol/L 05/01/2025 7:20 AM EST [facility] Potassium 4.1 3.5 - 5.3 mmol/L 05/01/2025 7:20 AM [facility] Chloride 104 98 - 110 mmol/L 05/01/2025 7:20 AM [facility] CO2 25 21 - 33 mmol/L 05/01/2025 7:20 AM [facility] Comment:High lactate dehydro genase concentrations in patient samples may cause falsely increased bicarbonate results. If markedly elevated LDH is observed or suspected, please assess results in conjunction with patient`s clinical presentation. In cases of discrepant results, consider evaluating CO2 in with a blood gas order. Anion Gap 7 3 - 16 mmol/L 05/01/2025 7:20 AM [facility] BUN 17 7 - 25 mg/dL 05/01/2025 7:20 AM [facility] Creatinine 0.79 0.60 - 1.30 mg/dL 05/01/2025 7:20 AM [facility] Glucose 85 70 - 100 mg/dL 05/01/2025 7:20 AM [facility] Calcium 8.1(L) 8.6 - 10.3 mg/dL 05/01/2025 7:20 AM [facility] Phosphorus 2.7 2.1 - 4.7 mg/dL 05/01/2025 7:20 AM [facility] Albumin 3.3(L) 3.5 - 5.7 g/dL 05/01/2025 7:20 AM [facility] Osmolality, Calculated 283 278 - 305 mOsm/kg 05/01/2025 7:20 AM [facility] EGFR >90 05/01/2025 7:20 AM [facility] Comment: As of 2021, [...] CRU[facility] LAB BLOOD ORDERABLES Final Re sult [facility] [address] [facility]. [address] * Magnesium (05/01/2025 6:09 AM EST) Magnesium 1.7 1.5 - 2.5 mg/dL 05/01/2025 7:20 AM EST [facility] Plasma 05/01/2025 6:09 AM EST 05/01/2025 6:30 AM EST Raya [facility] LAB BLOOD ORDERABLES Final Re sult Performing Organization Address City/State/[facility] Co de Phone Number [facility] [address] [facility]. [address] * (ABNORMAL) Hepatic Function Panel (05/01/2025 6:09 AM EST) Total Bilirubin 3.5(H) 0.0 - 1.5 mg/dL 05/01/2025 7:20 AM EST [facility] Bilirubin, Direct 2.21(H) 0.00 - 0.40 mg/dL 05/01/2025 7:20 AM EST [facility] AST 113(H) 13 - 39 U/L 05/01/2025 7:20 AM EST [facility] ALT 140(H) 7 - 52 U/L 05/01/2025 7:20 AM EST [facility] Alkaline Phosphatase 839(H) 36 - 125 U/L 05/01/2025 7:20 AM EST [facility] Total Protein 4.5(L) 6.4 - 8.9 g/dL 05/01/2025 7:20 AM EST [facility] Albumin 3.3(L) 3.5 - 5.7 g/dL 05/01/2025 7:20 AM EST [facility] Bilirubin, Indirect 1.29(H) 0.00 - 1.10 mg/dL 05/01/2025 7:20 AM EST [facility] Plasma 05/01/2025 6:09 AM EST 05/01/2025 6:30 AM EST Raya CRUZ LAB BLOOD ORDERABLES Final Re sult [facility] [address] [place] [address], [place] * (ABNORMAL) CBC (05/01/2025 6:09 AM EST) WBC 7.5 3.8 - 10.8 10E3/uL 05/01/2025 6:51 AM [facility] RBC 2.55(L) 3.80 - 5.10 10E6/uL 05/01/2025 6:51 AM [facility] Hemoglobin 8.0(L) 11.7 - 15.5 g/dL 05/01/2025 6:51 AM [facility] Hematocrit 23.4(L) 35.0 - 45.0 % 05/01/2025 6:51 AM [facility] MCV 91.5 80.0 - 100.0 fL 05/01/2025 6:51 AM [facility] MCH 31.2 27.0 - 33.0 pg 05/01/2025 6:51 AM [facility] MCHC 34.1 32.0 - 36.0 g/dL 05/01/2025 6:51 AM [facility] RDW 21.5(H) 11.0 - 15.0 % 05/01/2025 6:51 AM [facility] Platelets 102(L) 140 - 400 10E3/uL 05/01/2025 6:51 AM [facility] MPV 10.6 7.5 - 11.5 fL 05/01/2025 6:51 AM [facility] Whole Blood 05/01/2025 6:09 AM EST 05/01/2025 6:30 AM EST Raya CRUZ LAB BLOOD ORDERABLES Final Re sult Performing Organization Address [facility]/ZIP Co de Phone Number [facility] [address] [facility]. [address] * Tacrolimus level (05/01/2025 6:09 AM EST) Pathologist [facility] Tacrolimus (LC-MS) 6.9 3.0 - 15.0 ng/mL 05/01/2025 3:08 PM EST [facility] Comment:Performed via liquid chromatography tandem mass spectrometry. Detection limit: 1 ng/mL. Individual target concentrations may vary due to target organ and time after transplant. This test has been developed and its performance characteristics determined by [facility] which is certified under the [...] ORDERABLES Final Resul t Performing Organization Address [facility] Co de Phone Number [facility] [address] * (ABNORMAL) POC Glucose Monitoring Device (05/01/2025 12:02 AM EST) POC Glucose Monitoring Device 168(H) 70 - 100 mg/dL 05/01/2025 12:03 AM EST [facility] Blood 05/01/2025 12:0 2 AM EST 05/01/2025 12:03 AM EST Ludin Jose MD POINT OF CARE TEST ORDERABLES Fi nal Result Performing Organization Address City/[facility] Co de Phone Number [facility] [address] [place] [address], [place] * (ABNORMAL) POC Glucose Monitoring Device (04/30/2025 4:59 PM EST) POC Glucose Monitoring Device 191(H) 70 - 100 mg/dL 04/30/2025 5:02 PM EST [facility] Blood 04/30/2025 4:59 PM EST 04/30/2025 5:01 PM EST us Ludin Jose MD POINT OF CARE TEST ORDERABLES Fi nal Result Performing Organization Address City/[facility]/ZIP Co de Phone Number [facility] [address] [place] [address]. [address] * (ABNORMAL) POC Glucose Monitoring Device (04/30/2025 3:47 PM EST) POC Glucose Monitoring Device 158(H) 70 - 100 mg/dL 04/30/2025 3:47 PM EST [facility] Blood 04/30/2025 3:47 PM EST 04/30/2025 3:47 PM EST us Ludin Jose MD POINT OF CARE TEST ORDERABLES Fi nal Result Performing Organization Address City/[facility] Co de Phone Number [facility] [address] [place] [address]. [address] * (ABNORMAL) POC Glucose Monitoring Device (04/30/2025 12:08 PM EST) POC Glucose Monitoring Device 121(H) 70 - 100 mg/dL 04/30/2025 12:09 PM EST [facility] Blood 04/30/2025 12:0 8 PM EST 04/30/2025 12:09 PM EST us Ludin Jose MD POINT OF CARE TEST ORDERABLES Fi nal Result Performing Organization Address City/[facility]/ZIP Co de Phone Number [facility] [address] [place] [address]. [address] * POC Glucose Monitoring Device (04/30/2025 8:44 AM EST) POC Glucose Monitoring Device 98 70 - 100 mg/dL 04/30/2025 8:45 AM EST [facility] Blood 04/30/2025 8:44 AM EST 04/30/2025 8:44 AM EST us Ludin Jose MD POINT OF CARE TEST ORDERABLES Fi nal Result [facility] [address] [place] [address] * (ABNORMAL) Renal Function Panel w/EGFR (04/30/2025 5:12 AM EST) Pathologist [facility] Sodium 136 133 - 146 mmol/L 04/30/2025 6:36 AM EST [facility] Potassium 3.5 3.5 - 5.3 mmol/L 04/30/2025 6:36 AM [facility] Chloride 105 98 - 110 mmol/L 04/30/2025 6:36 AM [facility] CO2 23 21 - 33 mmol/L 04/30/2025 6:36 AM [facility] Comment:High lactate dehydro genase concentrations in patient samples may cause falsely increased bicarbonate results. If markedly elevated LDH is observed or suspected, please assess results in conjunction with patient`s clinical presentation. In cases of discrepant results, consider evaluating CO2 in with a blood gas order. Anion Gap 8 3 - 16 mmol/L 04/30/2025 6:36 AM EST [facility] BUN 18 7 - 25 mg/dL 04/30/2025 6:36 AM [facility] Creatinine 0.87 0.60 - 1.30 mg/dL 04/30/2025 6:36 AM [facility] Glucose 106(H) 70 - 100 mg/dL 04/30/2025 6:36 AM [facility] Calcium 8.0(L) 8.6 - 10.3 mg/dL 04/30/2025 6:36 AM [facility] Phosphorus 2.2 2.1 - 4.7 mg/dL 04/30/2025 6:36 AM [facility] Albumin 3.2(L) 3.5 - 5.7 g/dL 04/30/2025 6:36 AM [facility] Osmolality, Calculated 284 278 - 305 mOsm/kg 04/30/2025 6:36 AM EST [facility] EGFR 89 04/30/2025 6:36 AM EST [facility] Comment:As of 2021, the estimated [...] ORDERABLES Final Re sult Performing Organization Address City/[facility]/ZIP Co de Phone Number [facility] [address] * Magnesium (04/30/2025 5:12 AM EST) Magnesium 1.7 1.5 - 2.5 mg/dL 04/30/2025 6:36 AM EST [facility] Plasma 04/30/2025 5:12 AM EST 04/30/2025 5:55 AM EST Rayaadan Rodriguez [place] LAB BLOOD ORDERABLES Final Re sult Performing Organization Address [facility]/ZIP Co de Phone Number [facility] [address] * (ABNORMAL) Hepatic Function Panel (04/30/2025 5:12 AM EST) Total Bilirubin 3.1(H) 0.0 - 1.5 mg/dL 04/30/2025 6:36 AM EST [facility] Bilirubin, Direct 2.10(H) 0.00 - 0.40 mg/dL 04/30/2025 6:36 AM EST [facility] AST 85(H) 13 - 39 U/L 04/30/2025 6:36 AM EST [facility] ALT 98(H) 7 - 52 U/L 04/30/2025 6:36 AM EST [facility] Alkaline Phosphatase 600(H) 36 - 125 U/L 04/30/2025 6:36 AM EST [facility] Total Protein 4.2(L) 6.4 - 8.9 g/dL 04/30/2025 6:36 AM EST [facility] Albumin 3.2(L) 3.5 - 5.7 g/dL 04/30/2025 6:36 AM [facility] Bilirubin, Indirect 1.00 0.00 - 1.10 mg/dL 04/30/2025 6:36 AM [facility] Plasma 04/30/2025 5:12 AM EST 04/30/2025 5:55 AM EST us Raya CRUZ LAB BLOOD ORDERABLES Final Re sult [facility] [address] * (ABNORMAL) CBC (04/30/2025 5:12 AM EST) WBC 4.3 3.8 - 10.8 10E3/uL 04/30/2025 6:08 AM [facility] RBC 2.29(L) 3.80 - 5.10 10E6/uL 04/30/2025 6:08 AM EST [facility] Hemoglobin 7.2(L) 11.7 - 15.5 g/dL 04/30/2025 6:08 AM [facility] Hematocrit 21.2(L) 35.0 - 45.0 % 04/30/2025 6:08 AM EST [facility] MCV 92.2 80.0 - 100.0 fL 04/30/2025 6:08 AM [facility] MCH 31.3 27.0 - 33.0 pg 04/30/2025 6:08 AM EST [facility] MCHC 33.9 32.0 - 36.0 g/dL 04/30/2025 6:08 AM EST [facility] RDW 20.8(H) 11.0 - 15.0 % 04/30/2025 6:08 AM EST [facility] Platelets 87(L) 140 - 400 10E3/uL 04/30/2025 6:08 AM EST [facility] MPV 10.4 7.5 - 11.5 fL 04/30/2025 6:08 AM EST [facility] Whole Blood 04/30/2025 5:12 AM EST 04/30/2025 5:55 AM EST Raya CRUZ LAB BLOOD ORDERABLES Final Re sult Performing Organization Address [facility] de Phone Number [facility] [address] [facility]. [address] * Tacrolimus level (04/30/2025 5:12 AM EST) Tacrolimus (LC-MS) 7.5 3.0 - 15.0 ng/mL 04/30/2025 3:31 PM EST [facility] Comment:Performed via liquid chromatography tandem mass spectrometry. Detection limit: 1 ng/mL. Individual target concentrations may vary due to target organ and time after transplant. This test has been developed and its performance characteristics determined by [facility] which is certified under the [...] ORDERABLES Final Resul t Performing Organization Address [facility] Co de Phone Number [facility] [address] [facility]. [address] * (ABNORMAL) POC Glucose Monitoring Device (04/29/2025 10:12 PM EST) POC Glucose Monitoring Device 127(H) 70 - 100 mg/dL 04/29/2025 10:13 PM EST [facility] Blood 04/29/2025 10:1 2 PM EST 04/29/2025 10:13 PM EST us Ludin Jose MD POINT OF CARE TEST ORDERABLES Fi nal Result [facility] [address] [place] [address]. [address] * (ABNORMAL) POC Glucose Monitoring Device (04/29/2025 5:04 PM EST) POC Glucose Monitoring Device 151(H) 70 - 100 mg/dL 04/29/2025 5:05 PM EST [facility] Blood 04/29/2025 5:04 PM EST 04/29/2025 5:05 PM EST us Ludin Jose MD POINT OF CARE TEST ORDERABLES Fi nal Result Performing Organization Address City/[facility] Co de Phone Number [facility] [address] [facility]. [address] * (ABNORMAL) POC Glucose Monitoring Device (04/29/2025 12:58 PM EST) POC Glucose Monitoring Device 169(H) 70 - 100 mg/dL 04/29/2025 12:59 PM EST [facility] Blood 04/29/2025 12:5 8 PM EST 04/29/2025 12:59 PM EST us Ludin Jose MD POINT OF CARE TEST ORDERABLES Fi nal Result Performing Organization Address City/[facility]/ZIP Co de Phone Number [facility] [address] [facility]. [address] * (ABNORMAL) POC Glucose Monitoring Device (04/29/2025 11:54 AM EST) POC Glucose Monitoring Device 150(H) 70 - 100 mg/dL 04/29/2025 11:55 AM EST [facility] Blood 04/29/2025 11:5 4 AM EST 04/29/2025 11:55 AM EST us Ludin Jose MD POINT OF CARE TEST ORDERABLES Fi nal Result [facility] [address] [place] [address], [place] * US Abdomen Limited (04/29/2025 11:18 AM [...] EXAM: US ABDOMEN LIMITED EXAM: US DUPLEX [id number] COMPLETE INDICATION: Post-op liver transplant, right lobe [...] EXAM: US ABDOMEN LIMITED EXAM: US DUPLEX [id number] COMPLETE INDICATION: Post-op liver transplant, right lobe [...] 12:45 PM EST us Giovanny Louis MD [facility] US ORDERABLES Final Result * US Duplex [id number] Comp (04/29/2025 11:18 AM EST) Anatomical Region [...] EXAM: US ABDOMEN LIMITED EXAM: US DUPLEX [id number] COMPLETE INDICATION: Post-op liver transplant, right lobe [...] EXAM: US ABDOMEN LIMITED EXAM: US DUPLEX [id number] COMPLETE INDICATION: Post-op liver transplant, right lobe [...] 12:45 PM EST us Giovanny Louis MD [facility] US ORDERABLES Final Result * ECHO COMPLETE (04/29/2025 10:17 AM EST) Anatomical Region Laterality Modality Chest Ultrasound 04/29/2025 9:47 AM EST Narrative 04/29/2025 2:07 PM EST * [facility]* [address] [place] [id number] Transthoracic Echocardiogram Patient: Mindy Wade Room: Height: 65in MR Number: [id number] : 1990 Weight: 157lb Account: [id number] Gender: F BP: Study Date: 04/29/2025 Age: 35 BSA: 1.78m^2 Referring physician: Interpreting physician: Chantelle Perez MD PERFORMING Chantelle Perez MD [facility] [place] Procedure: Order: Indications: Shortness of breath (R60.0). [...] date: 04/29/2025. Study time: 09:47 AM. Location: [facility]. Study Conclusions - Left ventricle: The cavity [...] 2.0 FS, LAX (H) 46 % - 45 36 FS, LAX chord (H) 46 % - 45 36 ESD major ax, 6.5 [...] cm --------- Vol, S (N) 25 ml Vol/bsa, S (L) 14 ml/m^2 Vol, ES, 1-p (N) 24 ml A4C Vol/bsa, ES, (N) 14 ml/m^2 40 1-p A4C Vol, ES, 1-p (N) 25 ml 52 A2C Vol/bsa, ES, (N) 14 ml/m^2 13 - 40 1-p A2C Vol, ES, 2-p 25 ml --------- Vol/bsa, ES, (L) 14 ml/m^2 16 34 2-p Right atrium Value Ref 02/01/2025 [...] Reviewed and confirmed by Chantelle Perez MD [id number] Procedure Note Chantelle Perez MD - 05/02/2025 * [facility]* [address] [place] [address] [id number] Transthoracic Echocardiogram Patient: Mindy Wade Room: Height: 65in MR Number: [id number] : 1990 Weight:157lb Account: [id number] Gender: F BP: Study Date: 04/29/2025 Age: 35 BSA:1.78m^2 Referring physician: Interpreting physician: Chantelle Perez MD PERFORMING Chantelle Perez MD [place] [place] Lopez Procedure: Order: Indications: Shortness of [...] cm --------- Vol, S (N) 25 ml Vol/bsa, S (L) 14 ml/m^2 16 - 34 Vol, ES, 1-p (N) 24 ml 52 A4C Vol/bsa, ES, (N) 14 ml/m^2 11 - 40 1-p A4C Vol, ES, 1-p (N) 25 ml 22 - 52 A2C Vol/bsa, ES, (N) 14 ml/m^2 [...] Reviewed and confirmed by Chantelle Perez MD [id number] Jostin Hess MD CV ECHO ORDERABLES Fi [...] - 146 mmol/L 04/29/2025 6:09 AM EST [facility] Potassium 4.1 3.5 - 5.3 mmol/L 04/29/2025 6:09 AM EST [facility] Chloride 108 98 - 110 mmol/L 04/29/2025 6:09 AM EST [facility] CO2 23 21 - 33 mmol/L 04/29/2025 6:09 AM EST [facility] Comment:High lactate dehydro genase concentrations in patient samples may cause falsely increased bicarbonate results. If markedly elevated LDH is observed or suspected, please assess results in conjunction with patient`s clinical presentation. In cases of discrepant results, consider evaluating CO2 in with a blood gas order. Anion Gap 4 3 - 16 mmol/L 04/29/2025 6:09 AM EST [facility] BUN 18 7 - 25 mg/dL 04/29/2025 6:09 AM EST [facility] Creatinine 0.75 0.60 - 1.30 mg/dL 04/29/2025 6:09 AM EST [facility] Glucose 95 70 - 100 mg/dL 04/29/2025 6:09 AM EST [facility] Calcium 7.7(L) 8.6 - 10.3 mg/dL 04/29/2025 6:09 AM EST [facility] Phosphorus 3.0 2.1 - 4.7 mg/dL 04/29/2025 6:09 AM EST [facility] Albumin 2.4(L) 3.5 - 5.7 g/dL 04/29/2025 6:09 AM EST [facility] Osmolality, Calculated 282 278 - 305 mOsm/kg 04/29/2025 6:09 AM EST [facility] EGFR >90 04/29/2025 6:09 AM EST [facility] Comment: As of 2021, the [...] 5:25 AM EST 04/29/2025 5:32 AM EST us Raya CRUZ LAB BLOOD ORDERABLES Final Re sult [facility] [address] * Magnesium (04/29/2025 5:25 AM EST) Magnesium 1.7 1.5 - 2.5 mg/dL 04/29/2025 6:09 AM EST [facility] Plasma 04/29/2025 5:25 AM EST 04/29/2025 5:32 AM EST Raya CRUZ LAB BLOOD ORDERABLES Final Re sult [facility] [address] * (ABNORMAL) Hepatic Function Panel (04/29/2025 5:25 AM EST) Total Bilirubin 3.1(H) 0.0 - 1.5 mg/dL 04/29/2025 6:09 AM EST [facility] Bilirubin, Direct 2.02(H) 0.00 - 0.40 mg/dL 04/29/2025 6:09 AM EST [facility] AST 62(H) 13 - 39 U/L 04/29/2025 6:09 AM EST [facility] ALT 94(H) 7 - 52 U/L 04/29/2025 6:09 AM EST [facility] Alkaline Phosphatase 452(H) 36 - 125 U/L 04/29/2025 6:09 AM EST [facility] Total Protein 4.0(L) 6.4 - 8.9 g/dL 04/29/2025 6:09 AM EST [facility] Albumin 2.4(L) 3.5 - 5.7 g/dL 04/29/2025 6:09 AM EST [facility] Bilirubin, Indirect 1.08 0.00 - 1.10 mg/dL 04/29/2025 6:09 AM EST [facility] Plasma 04/29/2025 5:25 AM EST 04/29/2025 5:32 AM EST Raya CRUZ LAB BLOOD ORDERABLES Final Re sult [facility] [address] [place] [id number] * (ABNORMAL) CBC (04/29/2025 5:25 AM EST) Pathologist [facility] WBC 5.3 3.8 - 10.8 10E3/uL 04/29/2025 5:49 AM EST [facility] RBC 2.56(L) 3.80 - 5.10 10E6/uL 04/29/2025 5:49 AM EST [facility] Hemoglobin 7.9(L) 11.7 - 15.5 g/dL 04/29/2025 5:49 AM EST [facility] Hematocrit 23.3(L) 35.0 - 45.0 % 04/29/2025 5:49 AM EST [facility] MCV 90.8 80.0 - 100.0 fL 04/29/2025 5:49 AM EST [facility] MCH 30.9 27.0 - 33.0 pg 04/29/2025 5:49 AM EST [facility] MCHC 34.0 32.0 - 36.0 g/dL 04/29/2025 5:49 AM EST [facility] RDW 18.9(H) 11.0 - 15.0 % 04/29/2025 5:49 AM EST [facility] Platelets 92(L) 140 - 400 10E3/uL 04/29/2025 5:49 AM EST [facility] MPV 10.0 7.5 - 11.5 fL 04/29/2025 5:49 AM EST [facility] Whole Blood 04/29/2025 5:25 AM EST 04/29/2025 5:32 AM EST us Raya CRUZ LAB BLOOD ORDERABLES Final Re sult [facility] [address] [place] [address], [place] * (ABNORMAL) Tacrolimus level (04/29/2025 5:25 AM EST) Pathologist [facility] Tacrolimus (LC-MS) 16.8(H) 3.0 - 15.0 ng/mL 04/29/2025 10:35 AM EST [facility] Comment:Performed via liquid chromatography tandem mass spectrometry. Detection limit: 1 ng/mL. Individual target concentrations may vary due to target organ and time after transplant. This test has been developed and its performance characteristics determined by [facility] which is certified under the [...] 5:25 AM EST 04/29/2025 5:32 AM EST Glroia Chen MD LAB BLOOD ORDERABLES Final Resul t Performing Organization Address [facility] Co de Phone Number [facility] [address] [place] [address] * POC Glucose Monitoring Device (04/29/2025 5:06 AM EST) POC Glucose Monitoring Device 97 70 - 100 mg/dL 04/29/2025 5:07 AM EST [facility] Blood 04/29/2025 5:06 AM EST 04/29/2025 5:07 AM EST Ludin Jose MD POINT OF CARE TEST ORDERABLES Fi nal Result Performing Organization Address [facility] de Phone Number [facility] [address] [place] [address] * (ABNORMAL) POC Glucose Monitoring Device (04/28/2025 11:10 PM EST) POC Glucose Monitoring Device 131(H) 70 - 100 mg/dL 04/28/2025 11:11 PM EST [facility] Blood 04/28/2025 11:1 0 PM EST 04/28/2025 11:10 PM EST Ludin Jose MD POINT OF CARE TEST ORDERABLES Fi nal Result Performing Organization Address [facility] Co de Phone Number [facility] [address] [place] [address]. [address] * (ABNORMAL) POC Glucose Monitoring Device (04/28/2025 5:19 PM EST) POC Glucose Monitoring Device 137(H) 70 - 100 mg/dL 04/28/2025 5:20 PM EST [facility] Blood 04/28/2025 5:19 PM EST 04/28/2025 5:20 PM EST us Ludin Jose MD POINT OF CARE TEST ORDERABLES Fi nal Result Performing Organization Address City/[facility]/ZIP Co de Phone Number [facility] [address] [facility]. [address] * (ABNORMAL) POC Glucose Monitoring Device (04/28/2025 10:58 AM EST) POC Glucose Monitoring Device 132(H) 70 - 100 mg/dL 04/28/2025 10:59 AM EST [facility] Blood 04/28/2025 10:5 8 AM EST 04/28/2025 10:58 AM EST us Ludin Jose MD POINT OF CARE TEST ORDERABLES Fi nal Result Performing Organization Address City/[facility] Co de Phone Number [facility] [address] [place] [address]. [address] * (ABNORMAL) POC Glucose Monitoring Device (04/28/2025 6:43 AM EST) POC Glucose Monitoring Device 111(H) 70 - 100 mg/dL 04/28/2025 6:44 AM EST [facility] Blood 04/28/2025 6:43 AM EST 04/28/2025 6:44 AM EST us Ludin Jose MD POINT OF CARE TEST ORDERABLES Fi nal Result Performing Organization Address City/[facility]/ZIP Co de Phone Number [facility] [address] [place] [address]. [address] * (ABNORMAL) Renal Function Panel w/EGFR (04/28/2025 6:37 AM EST) Sodium 136 133 - 146 mmol/L 04/28/2025 7:30 AM [facility] Potassium 3.7 3.5 - 5.3 mmol/L 04/28/2025 7:30 AM [facility] Chloride 106 98 - 110 mmol/L 04/28/2025 7:30 AM [facility] CO2 23 21 - 33 mmol/L 04/28/2025 7:30 AM [facility] Comment:High lactate dehydro genase concentrations in patient samples may cause falsely increased bicarbonate results. If markedly elevated LDH is observed or suspected, please assess results in conjunction with patient`s clinical presentation. In cases of discrepant results, consider evaluating CO2 in with a blood gas order. Anion Gap 7 3 - 16 mmol/L 04/28/2025 7:30 AM [facility] BUN 17 7 - 25 mg/dL 04/28/2025 7:30 AM [facility] Creatinine 0.68 0.60 - 1.30 mg/dL 04/28/2025 7:30 AM [facility] Glucose 105(H) 70 - 100 mg/dL 04/28/2025 7:30 AM [facility] Calcium 7.5(L) 8.6 - 10.3 mg/dL 04/28/2025 7:30 AM [facility] Phosphorus 2.4 2.1 - 4.7 mg/dL 04/28/2025 7:30 AM [facility] Albumin 2.2(L) 3.5 - 5.7 g/dL 04/28/2025 7:30 AM [facility] Osmolality, Calculated 284 278 - 305 mOsm/kg 04/28/2025 7:30 AM [facility] EGFR >90 04/28/2025 7:30 AM [facility] Comment: As of 2021, [...] ORDERABLES Final Re sult Performing Organization Address [facility] Co de Phone Number [facility] [address] [facility] * Magnesium (04/28/2025 6:37 AM EST) Magnesium 1.9 1.5 - 2.5 mg/dL 04/28/2025 7:30 AM EST [facility] Plasma 04/28/2025 6:37 AM EST 04/28/2025 6:52 AM EST [facility] BLOOD ORDERABLES Final Re sult Performing Organization Address City/[facility] Co de Phone Number [facility] [address] [facility] * (ABNORMAL) Hepatic Function Panel (04/28/2025 6:37 AM EST) Total Bilirubin 3.4(H) 0.0 - 1.5 mg/dL 04/28/2025 7:30 AM EST [facility] Bilirubin, Direct 2.28(H) 0.00 - 0.40 mg/dL 04/28/2025 7:30 AM EST [facility]. [facility] AST 66(H) 13 - 39 U/L 04/28/2025 7:30 AM EST [facility] ALT 104(H) 7 - 52 U/L 04/28/2025 7:30 AM EST [facility] Alkaline Phosphatase 397(H) 36 - 125 U/L 04/28/2025 7:30 AM [facility] Total Protein 3.9(L) 6.4 - 8.9 g/dL 04/28/2025 7:30 AM [facility] Albumin 2.2(L) 3.5 - 5.7 g/dL 04/28/2025 7:30 AM [facility] Bilirubin, Indirect 1.12(H) 0.00 - 1.10 mg/dL 04/28/2025 7:30 AM [facility] Plasma 04/28/2025 6:37 AM EST 04/28/2025 6:52 AM EST Raya CRUZ LAB BLOOD ORDERABLES Final Re sult [facility] [address] * (ABNORMAL) CBC (04/28/2025 6:37 AM EST) WBC 6.2 3.8 - 10.8 10E3/uL 04/28/2025 8:10 AM [facility] RBC 2.69(L) 3.80 - 5.10 10E6/uL 04/28/2025 8:10 AM [facility] Hemoglobin 8.4(L) 11.7 - 15.5 g/dL 04/28/2025 8:10 AM [facility] Hematocrit 24.1(L) 35.0 - 45.0 % 04/28/2025 8:10 AM [facility] MCV 89.7 80.0 - 100.0 fL 04/28/2025 8:10 AM [facility] MCH 31.2 27.0 - 33.0 pg 04/28/2025 8:10 AM [facility] MCHC 34.8 32.0 - 36.0 g/dL 04/28/2025 8:10 AM [facility] RDW 17.7(H) 11.0 - 15.0 % 04/28/2025 8:10 AM [facility] Platelets 111(L) 140 - 400 10E3/uL 04/28/2025 8:10 AM EST [facility] Comment:Specimen checked for clots. None detected. MPV 10.0 7.5 - 11.5 fL 04/28/2025 8:10 AM EST [facility] Whole Blood 04/28/2025 6:37 AM EST 04/28/2025 6:52 AM EST Raya CRUZ LAB BLOOD ORDERABLES Final Re sult Performing Organization Address [facility]/ZIP Co de Phone Number [facility] [address] [facility]. [address] * (ABNORMAL) Tacrolimus level (04/28/2025 6:37 AM EST) Pathologist [facility] [place] Tacrolimus (LC-MS) 16.6(H) 3.0 - 15.0 ng/mL 04/28/2025 10:26 AM EST [facility] Comment:Performed via liquid chromatography tandem mass spectrometry. Detection limit: 1 ng/mL. Individual target concentrations may vary due to target organ and time after transplant. This test has been developed and its performance characteristics determined by [facility] which is certified under the [...] ORDERABLES Final Resul t Performing Organization Address [facility]/ZIP Co de Phone Number [facility] [address] [facility]. [address] * (ABNORMAL) POC Glucose Monitoring Device (04/27/2025 11:04 PM EST) POC Glucose Monitoring Device 101(H) 70 - 100 mg/dL 04/27/2025 11:05 PM EST [facility] Blood 04/27/2025 11:0 4 PM EST 04/27/2025 11:05 PM EST Ludin Jose MD POINT OF CARE TEST ORDERABLES Fi nal Result Performing Organization Address City/[facility] Co de Phone Number [facility] [address] [facility]. [address] * CORNELIUS Rhythm Strip - Scan (04/27/2025 7:26 PM EST) Scanning [employer] SCAN DOCS - NO RESULTS Final Res ult * ECG 12-lead (MUSE) (04/27/2025 5:57 PM EST) 04/27/2025 5:57 PM EST Narrative MUSE - 04/28/2025 11:52 AM EST Ventricular Rate: 77 BPM Atrial Rate: 77 BPM P-R Interval: 102 ms QRS Duration: 90 ms QT: 420 ms QTc: 475 ms P [place]: 7 degrees R [place]: 16 degrees T [place]: 29 degrees Diagnosis Line: SINUS RHYTHM WITH SHORT [place] ^ OTHERWISE NORMAL ECG ^ ^ Confirmed by Anthony RAMOS MD ([id number]) on 04/28/2025 11:52:02 AM Raya CRUZ ECG ORDERABLES Final Result Performing Organization Address [facility] Co de Phone Number MUSE * (ABNORMAL) POC Glucose Monitoring Device (04/27/2025 5:55 PM EST) Pathologist [facility] [place] POC Glucose Monitoring Device 113(H) 70 - 100 mg/dL 04/27/2025 5:56 PM EST [facility] Blood 04/27/2025 5:55 PM EST 04/27/2025 5:56 PM EST Ludin Jose MD POINT OF CARE TEST ORDERABLES Fi nal Result Performing Organization Address [facility] Co de Phone Number [facility] [address] [facility]. [address] * (ABNORMAL) Triglycerides (04/27/2025 11:36 AM EST) Triglycerides 247(H) 10 - 149 mg/dL 04/27/2025 1:31 PM EST [facility] Plasma 04/27/2025 11:3 6 AM EST 04/27/2025 12:05 PM EST Raya Rodriguez PA LAB BLOOD ORDERABLES Final Re sult Performing Organization Address City/[facility]/ZIP Co de Phone Number [facility] [address] * (ABNORMAL) POC Glucose Monitoring Device (04/27/2025 11:31 AM EST) POC Glucose Monitoring Device 134(H) 70 - 100 mg/dL 04/27/2025 11:32 AM EST [facility] Blood 04/27/2025 11:3 1 AM EST 04/27/2025 11:32 AM EST Ludin Jose MD POINT OF CARE TEST ORDERABLES Fi nal Result Performing Organization Address [facility] Co de Phone Number [facility] [address] * X-ray Portable Abdomen AP view (04/27/2025 [...] - 100 mg/dL 04/27/2025 5:05 AM EST [facility] Blood 04/27/2025 5:03 AM EST 04/27/2025 5:05 AM EST us Ludin Jose MD POINT OF CARE TEST ORDERABLES Fi nal Result Performing Organization Address [facility] Co de Phone Number [employer] [address] * (ABNORMAL) POC Glucose Monitoring Device (04/27/2025 5:01 AM EST) POC Glucose Monitoring Device 316(H) 70 - 100 mg/dL 04/27/2025 5:03 AM EST [facility] Blood 04/27/2025 5:01 AM EST 04/27/2025 5:03 AM EST us Ludin Jose MD POINT OF CARE TEST ORDERABLES Fi nal Result Performing Organization Address City/[facility]/ZIP Co de Phone Number [facility] [address] [facility]. [address] * (ABNORMAL) POC Glucose Monitoring Device (04/27/2025 5:00 AM EST) Pathologist [facility] [place] POC Glucose Monitoring Device 307(H) 70 - 100 mg/dL 04/27/2025 5:03 AM EST [facility] Blood 04/27/2025 5:00 AM EST 04/27/2025 5:03 AM EST Ludin Jose MD POINT OF CARE TEST ORDERABLES Fi nal Result Performing Organization Address City/[facility]/ZIP Co de Phone Number [facility] [address] * Tacrolimus level (04/27/2025 4:56 AM EST) [facility] Tacrolimus (LC-MS) 6.3 3.0 - 15.0 ng/mL 04/27/2025 10:58 AM EST [facility] Comment:Performed via liquid chromatography tandem mass spectrometry. Detection limit: 1 ng/mL. Individual target concentrations may vary due to target organ and time after transplant. This test has been developed and its performance characteristics determined by [facility] which is certified under the [...] MD LAB BLOOD ORDERABLES Final Resul t [facility] [address] * (ABNORMAL) CBC (04/27/2025 4:56 AM EST) Pathologist [facility] [place] WBC 3.5(L) 3.8 - 10.8 10E3/uL 04/27/2025 5:52 AM EST [facility] RBC 2.41(L) 3.80 - 5.10 10E6/uL 04/27/2025 5:52 AM EST [facility] Hemoglobin 7.6(L) 11.7 - 15.5 g/dL 04/27/2025 5:52 AM EST [facility] Hematocrit 21.7(L) 35.0 - 45.0 % 04/27/2025 5:52 AM EST [facility] MCV 90.2 80.0 - 100.0 fL 04/27/2025 5:52 AM EST [facility] MCH 31.4 27.0 - 33.0 pg 04/27/2025 5:52 AM EST [facility] MCHC 34.8 32.0 - 36.0 g/dL 04/27/2025 5:52 AM [facility] RDW 18.3(H) 11.0 - 15.0 % 04/27/2025 5:52 AM EST [facility] Platelets 62(L) 140 - 400 10E3/uL 04/27/2025 5:52 AM [facility] MPV 10.2 7.5 - 11.5 fL 04/27/2025 5:52 AM [facility] Whole Blood 04/27/2025 4:56 AM EST 04/27/2025 5:42 AM EST us Gloria Chen MD LAB BLOOD ORDERABLES Final Resul t Performing Organization Address City/[facility] Co de Phone Number [facility] [address] [facility]. [address] * Phosphorus (04/27/2025 3:01 AM EST) Phosphorus 2.4 2.1 - 4.7 mg/dL 04/27/2025 3:30 AM EST [facility] Plasma 04/27/2025 3:01 AM EST 04/27/2025 3:09 AM EST Gloria Chen MD LAB BLOOD ORDERABLES Final Resul t Performing Organization Address City/[facility] Co de Phone Number [facility] [address] * Magnesium (04/27/2025 3:01 AM EST) Magnesium 1.7 1.5 - 2.5 mg/dL 04/27/2025 3:30 AM EST [facility] Plasma 04/27/2025 3:01 AM EST 04/27/2025 3:09 AM EST Gloria Chen MD LAB BLOOD ORDERABLES Final Resul t Performing Organization Address [facility] de Phone Number [facility] [address] [facility]. [address] * (ABNORMAL) Hepatic Function Panel (04/27/2025 3:01 AM EST) Total Bilirubin 4.0(H) 0.0 - 1.5 mg/dL 04/27/2025 3:30 AM EST [facility] Bilirubin, Direct 2.87(H) 0.00 - 0.40 mg/dL 04/27/2025 3:30 AM EST [facility] AST 74(H) 13 - 39 U/L 04/27/2025 3:30 AM EST [facility] ALT 104(H) 7 - 52 U/L 04/27/2025 3:30 AM EST [facility] Alkaline Phosphatase 342(H) 36 - 125 U/L 04/27/2025 3:30 AM EST [facility] Total Protein 3.7(L) 6.4 - 8.9 g/dL 04/27/2025 3:30 AM EST [facility] Albumin 2.1(L) 3.5 - 5.7 g/dL 04/27/2025 3:30 AM EST [facility] Bilirubin, Indirect 1.13(H) 0.00 - 1.10 mg/dL 04/27/2025 3:30 AM EST [facility] Plasma 04/27/2025 3:01 AM EST 04/27/2025 3:09 AM EST us Gloria Chen MD LAB BLOOD ORDERABLES Final Resul t Performing Organization Address City/[facility]/ZIP Co de Phone Number [facility] [address] [place] [id number] * (ABNORMAL) Basic metabolic panel (04/27/2025 3:01 AM EST) Sodium 138 133 - 146 mmol/L 04/27/2025 3:30 AM [facility] Potassium 4.2 3.5 - 5.3 mmol/L 04/27/2025 3:30 AM [facility] Chloride 112(H) 98 - 110 mmol/L 04/27/2025 3:30 AM [facility] CO2 24 21 - 33 mmol/L 04/27/2025 3:30 AM [facility] Comment:High lactate dehydro genase concentrations in patient samples may cause falsely increased bicarbonate results. If markedly elevated LDH is observed or suspected, please assess results in conjunction with patient`s clinical presentation. In cases of discrepant results, consider evaluating CO2 in with a blood gas order. Anion Gap 2(L) 3 - 16 mmol/L 04/27/2025 3:30 AM [facility] BUN 17 7 - 25 mg/dL 04/27/2025 3:30 AM [facility] Creatinine 0.57(L) 0.60 - 1.30 mg/dL 04/27/2025 3:30 AM [facility] Glucose 224(H) 70 - 100 mg/dL 04/27/2025 3:30 AM [facility] Calcium 7.0(L) 8.6 - 10.3 mg/dL 04/27/2025 3:30 AM [facility] Osmolality, Calculated 295 278 - 305 mOsm/kg 04/27/2025 3:30 AM [facility] EGFR >90 04/27/2025 3:30 AM [facility] Comment: As of 2021, [...] M, Chato [place], Suzy ND, Jyoti GARDUNO, Corset Maker [place], et al. A Unifying Approach for [...] MD LAB BLOOD ORDERABLES Final Resul t [facility] [address] * (ABNORMAL) CBC (04/26/2025 11:55 PM EST) WBC 3.4(L) 3.8 - 10.8 10E3/uL 04/27/2025 12:34 AM EST [facility] RBC 2.40(L) 3.80 - 5.10 10E6/uL 04/27/2025 12:34 AM EST [facility] Hemoglobin 7.3(L) 11.7 - 15.5 g/dL 04/27/2025 12:34 AM EST [facility] Hematocrit 22.5(L) 35.0 - 45.0 % 04/27/2025 12:34 AM EST [facility] MCV 93.8 80.0 - 100.0 fL 04/27/2025 12:34 AM EST [facility] MCH 30.6 27.0 - 33.0 pg 04/27/2025 12:34 AM EST [facility] MCHC 32.6 32.0 - 36.0 g/dL 04/27/2025 12:34 AM EST [facility] RDW 17.7(H) 11.0 - 15.0 % 04/27/2025 12:34 AM EST [facility] Platelets 61(L) 140 - 400 10E3/uL 04/27/2025 12:34 AM [facility] Comment:Specimen checked for clots. None detected. MPV 9.6 7.5 - 11.5 fL 04/27/2025 12:34 AM EST [facility] Whole Blood 04/26/2025 11:5 5 PM EST 04/27/2025 12:01 AM EST us Gloria Chen MD LAB BLOOD ORDERABLES Final Resul t [facility] [address] [facility]. [address] * POC Glucose Monitoring Device (04/26/2025 10:50 PM EST) POC Glucose Monitoring Device 82 70 - 100 mg/dL 04/26/2025 10:51 PM EST [facility] Blood 04/26/2025 10:5 0 PM EST 04/26/2025 10:51 PM EST us Ludin Jose MD POINT OF CARE TEST ORDERABLES Fi nal Result [facility] [address] [facility]. [address] * Antibody Screen (04/26/2025 6:02 PM EST) Antibody Screen Negative 04/26/2025 6:50 PM EST [facility] Blood 04/26/2025 6:02 PM EST 04/26/2025 6:16 PM EST Narrative [facility] - 04/26/2025 6:52 PM EST Testing performed by [facility] Transfusion Service us Gloria Chen MD BLOOD BANK TEST ORDERABLES Final Result [facility] [address] [facility]. [address] * ABO/Rh (04/26/2025 6:02 PM EST) ABO Grouping O 04/26/2025 6:37 PM EST [facility] Rh Type Positive 04/26/2025 6:37 PM EST [facility] Blood 04/26/2025 6:02 PM EST 04/26/2025 6:16 PM EST us Gloria Chen MD BLOOD BANK TEST ORDERABLES Final Result [facility] [address] * POC Glucose Monitoring Device (04/26/2025 6:00 PM EST) POC Glucose Monitoring Device 82 70 - 100 mg/dL 04/26/2025 6:02 PM EST [facility] Blood 04/26/2025 6:00 PM EST 04/26/2025 6:02 PM EST us Ludin Jose MD POINT OF CARE TEST ORDERABLES Fi nal Result Performing Organization Address [facility] Co de Phone Number [facility] [address] * (ABNORMAL) CBC (04/26/2025 4:16 PM EST) WBC 4.1 3.8 - 10.8 10E3/uL 04/26/2025 4:43 PM EST [facility] RBC 2.75(L) 3.80 - 5.10 10E6/uL 04/26/2025 4:43 PM EST [facility] Hemoglobin 8.5(L) 11.7 - 15.5 g/dL 04/26/2025 4:43 PM EST [facility] Hematocrit 24.6(L) 35.0 - 45.0 % 04/26/2025 4:43 PM EST [facility] MCV 89.4 80.0 - 100.0 fL 04/26/2025 4:43 PM EST [facility] MCH 31.0 27.0 - 33.0 pg 04/26/2025 4:43 PM EST [facility] MCHC 34.7 32.0 - 36.0 g/dL 04/26/2025 4:43 PM EST [facility] RDW 17.1(H) 11.0 - 15.0 % 04/26/2025 4:43 PM EST [facility] Platelets 76(L) 140 - 400 10E3/uL 04/26/2025 4:43 PM EST [facility] MPV 9.7 7.5 - 11.5 fL 04/26/2025 4:43 PM EST [facility] Whole Blood 04/26/2025 4:16 PM EST 04/26/2025 4:23 PM EST Gloria Chen MD LAB BLOOD ORDERABLES Final Resul t [facility] [address] [facility]. [address] * Phosphorus (04/26/2025 4:16 PM EST) Phosphorus 3.0 2.1 - 4.7 mg/dL 04/26/2025 5:01 PM EST [facility] Plasma 04/26/2025 4:16 PM EST 04/26/2025 4:23 PM EST Gloria Chen MD LAB BLOOD ORDERABLES Final Resul t Performing Organization Address [facility] Co de Phone Number [facility] [address] [facility]. [address] * Magnesium (04/26/2025 4:16 PM EST) Magnesium 1.8 1.5 - 2.5 mg/dL 04/26/2025 5:01 PM EST [facility] Plasma 04/26/2025 4:16 PM EST 04/26/2025 4:23 PM EST Gloria Chen MD LAB BLOOD ORDERABLES Final Resul t Performing Organization Address City/[facility] Co de Phone Number [facility] [address] [place] [address]. [address] * (ABNORMAL) Renal Function Panel w/EGFR (04/26/2025 4:16 PM EST) Sodium 143 133 - 146 mmol/L 04/26/2025 5:01 PM EST [facility] Potassium 4.0 3.5 - 5.3 mmol/L 04/26/2025 5:01 PM [facility] Chloride 113(H) 98 - 110 mmol/L 04/26/2025 5:01 PM [facility] CO2 23 21 - 33 mmol/L 04/26/2025 5:01 PM [facility] Comment:High lactate dehydro genase concentrations in patient samples may cause falsely increased bicarbonate results. If markedly elevated LDH is observed or suspected, please assess results in conjunction with patient`s clinical presentation. In cases of discrepant results, consider evaluating CO2 in with a blood gas order. Anion Gap 7 3 - 16 mmol/L 04/26/2025 5:01 PM [facility] BUN 21 7 - 25 mg/dL 04/26/2025 5:01 PM [facility] Creatinine 0.60 0.60 - 1.30 mg/dL 04/26/2025 5:01 PM [facility] Glucose 97 70 - 100 mg/dL 04/26/2025 5:01 PM [facility] Calcium 7.3(L) 8.6 - 10.3 mg/dL 04/26/2025 5:01 PM [facility] Phosphorus 3.0 2.1 - 4.7 mg/dL 04/26/2025 5:01 PM [facility] Albumin 2.3(L) 3.5 - 5.7 g/dL 04/26/2025 5:01 PM [facility] Osmolality, Calculated 299 278 - 305 mOsm/kg 04/26/2025 5:01 PM [facility] EGFR >90 04/26/2025 5:01 PM [facility] Comment: As of 2021, [...] ORDERABLES Final Resul t Performing Organization Address City/[facility]/ZIP Co de Phone Number [facility] [address] [facility]. [address] * (ABNORMAL) POC Glucose Monitoring Device (04/26/2025 12:50 PM EST) POC Glucose Monitoring Device 113(H) 70 - 100 mg/dL 04/26/2025 12:51 PM EST [facility] Blood 04/26/2025 12:5 0 PM EST 04/26/2025 12:50 PM EST us Ludin Jose MD POINT OF CARE TEST ORDERABLES Fi nal Result Performing Organization Address [facility] Co de Phone Number [facility] [address] [facility]. [address] * VAS Venous Duplex Upper Right [...] at 04/26/2025 8:59 AM EST Yane Wheatley [facility] IMG DIAGNOSTIC IMAGING OR DERABLES Final Result * (ABNORMAL) CBC (04/26/2025 7:47 AM EST) WBC 5.5 3.8 - 10.8 10E3/uL 04/26/2025 8:06 AM EST [facility] RBC 2.89(L) 3.80 - 5.10 10E6/uL 04/26/2025 8:06 AM EST [facility] Hemoglobin 8.9(L) 11.7 - 15.5 g/dL 04/26/2025 8:06 AM EST [facility] Hematocrit 25.8(L) 35.0 - 45.0 % 04/26/2025 8:06 AM EST [facility] MCV 89.3 80.0 - 100.0 fL 04/26/2025 8:06 AM EST [facility] MCH 30.9 27.0 - 33.0 pg 04/26/2025 8:06 AM EST [facility] MCHC 34.6 32.0 - 36.0 g/dL 04/26/2025 8:06 AM EST [facility] RDW 17.0(H) 11.0 - 15.0 % 04/26/2025 8:06 AM EST [facility] Platelets 70(L) 140 - 400 10E3/uL 04/26/2025 8:06 AM EST [facility] MPV 9.8 7.5 - 11.5 fL 04/26/2025 8:06 AM EST [facility] Whole Blood 04/26/2025 7:47 AM EST 04/26/2025 7:54 AM EST us Gloria Chen MD LAB BLOOD ORDERABLES Final Resul t [facility] [address] * Tacrolimus level (04/26/2025 7:47 AM EST) Tacrolimus (LC-MS) 7.1 3.0 - 15.0 ng/mL 04/26/2025 11:55 AM EST [facility] Comment:Performed via liquid chromatography tandem mass spectrometry. Detection limit: 1 ng/mL. Individual target concentrations may vary due to target organ and time after transplant. This test has been developed and its performance characteristics determined by [facility] which is certified under the [...] ORDERABLES Final Resul t Performing Organization Address [facility] Co de Phone Number [facility] [address] [facility]. [address] * POC Glucose Monitoring Device (04/26/2025 7:44 AM EST) POC Glucose Monitoring Device 76 70 - 100 mg/dL 04/26/2025 7:45 AM EST [facility] Blood 04/26/2025 7:44 AM EST 04/26/2025 7:45 AM EST us Ludin Jose MD POINT OF CARE TEST ORDERABLES Fi nal Result Performing Organization Address [facility] Co de Phone Number [facility] [address] [facility]. [address] * Magnesium (04/26/2025 6:09 AM EST) Magnesium 2.1 1.5 - 2.5 mg/dL 04/26/2025 7:01 AM EST [facility] Plasma 04/26/2025 6:09 AM EST 04/26/2025 6:18 AM EST us Gloria Chen MD LAB BLOOD ORDERABLES Final Resul t Performing Organization Address [facility] Co de Phone Number [facility] [address] [facility]. [address] * (ABNORMAL) Renal Function Panel w/EGFR (04/26/2025 6:09 AM EST) Sodium 142 133 - 146 mmol/L 04/26/2025 7:01 AM EST [facility] Potassium 4.0 3.5 - 5.3 mmol/L 04/26/2025 7:01 AM EST [facility] Chloride 114(H) 98 - 110 mmol/L 04/26/2025 7:01 AM EST [facility] CO2 22 21 - 33 mmol/L 04/26/2025 7:01 AM EST [facility] Comment:High lactate dehydro genase concentrations in patient samples may cause falsely increased bicarbonate results. If markedly elevated LDH is observed or suspected, please assess results in conjunction with patient`s clinical presentation. In cases of discrepant results, consider evaluating CO2 in with a blood gas order. Anion Gap 6 3 - 16 mmol/L 04/26/2025 7:01 AM EST [facility] BUN 23 7 - 25 mg/dL 04/26/2025 7:01 AM [facility] Creatinine 0.51(L) 0.60 - 1.30 mg/dL 04/26/2025 7:01 AM [facility] Glucose 75 70 - 100 mg/dL 04/26/2025 7:01 AM EST [facility] Calcium 7.3(L) 8.6 - 10.3 mg/dL 04/26/2025 7:01 AM [facility] Phosphorus 1.8(L) 2.1 - 4.7 mg/dL 04/26/2025 7:01 AM [facility] Albumin 2.3(L) 3.5 - 5.7 g/dL 04/26/2025 7:01 AM [facility] Osmolality, Calculated 296 278 - 305 mOsm/kg 04/26/2025 7:01 AM [facility] EGFR >90 04/26/2025 7:01 AM [facility] Comment: As of 2021, [...] 6:09 AM EST 04/26/2025 6:18 AM EST Gloria Chen MD LAB BLOOD ORDERABLES Final Resul t Performing Organization Address [facility] Co de Phone Number [facility] [address] [facility]. [address] * (ABNORMAL) Hepatic Function Panel (04/26/2025 6:09 AM EST) Total Bilirubin 4.6(H) 0.0 - 1.5 mg/dL 04/26/2025 7:01 AM EST [facility] Bilirubin, Direct 3.20(H) 0.00 - 0.40 mg/dL 04/26/2025 7:01 AM EST [facility] AST 78(H) 13 - 39 U/L 04/26/2025 7:01 AM EST [facility] ALT 117(H) 7 - 52 U/L 04/26/2025 7:01 AM EST [facility] Alkaline Phosphatase 299(H) 36 - 125 U/L 04/26/2025 7:01 AM EST [facility] Total Protein 3.9(L) 6.4 - 8.9 g/dL 04/26/2025 7:01 AM EST [facility] Albumin 2.3(L) 3.5 - 5.7 g/dL 04/26/2025 7:01 AM EST [facility] Bilirubin, Indirect 1.40(H) 0.00 - 1.10 mg/dL 04/26/2025 7:01 AM EST [facility] Plasma 04/26/2025 6:09 AM EST 04/26/2025 6:18 AM EST us Gloria Chen MD LAB BLOOD ORDERABLES Final Resul t Performing Organization Address [facility]/ZIP Co de Phone Number [facility] [address] [facility]. [address] * POC Glucose Monitoring Device (04/26/2025 2:19 AM EST) POC Glucose Monitoring Device 85 70 - 100 mg/dL 04/26/2025 2:20 AM EST [facility] Blood 04/26/2025 2:19 AM EST 04/26/2025 2:20 AM EST Ludin Jose MD POINT OF CARE TEST ORDERABLES Fi nal Result Performing Organization Address [facility]/ZIP Co de Phone Number [facility] [address] [place] [address] * Calcium Free, Serum (04/26/2025 12:27 AM EST) Free Calcium, Ser 4.46 4.40 - 5.40 mg/dL 04/26/2025 12:54 AM EST [facility] Comment:Free calcium levels vary inversely with pH by approximately 5% for each 0.1 unit of pH change. Assay results have been normalized to pH = 7.40. Serum 04/26/2025 12:2 7 AM EST 04/26/2025 12:36 AM EST Narrative [facility] - 04/26/2025 12:54 AM EST This test has been developed and its performance characteristics determined by [facility] which is certified under the [...] ORDERABLES Final Resul t Performing Organization Address [facility]/ZIP Co de Phone Number [facility] [address] [facility]. [address] * (ABNORMAL) POC Glucose Monitoring Device (04/26/2025 12:13 AM EST) POC Glucose Monitoring Device 60(L) 70 - 100 mg/dL 04/26/2025 12:14 AM EST [facility] Blood 04/26/2025 12:1 3 AM EST 04/26/2025 12:14 AM EST us Ludin Jose MD POINT OF CARE TEST ORDERABLES Fi nal Result [facility] [address] [facility]. [address] * Magnesium (04/26/2025 12:12 AM EST) Magnesium 2.2 1.5 - 2.5 mg/dL 04/26/2025 1:04 AM EST [facility] Plasma 04/26/2025 12:1 2 AM EST 04/26/2025 12:20 AM EST us Gloria Chen MD LAB BLOOD ORDERABLES Final Resul t Performing Organization Address [facility] Co de Phone Number [facility] [address] [facility]. [address] * (ABNORMAL) Renal Function Panel w/EGFR (04/26/2025 12:12 AM EST) Sodium 141 133 - 146 mmol/L 04/26/2025 1:04 AM [facility] Potassium 4.3 3.5 - 5.3 mmol/L 04/26/2025 1:04 AM [facility] Chloride 113(H) 98 - 110 mmol/L 04/26/2025 1:04 AM [facility] CO2 22 21 - 33 mmol/L 04/26/2025 1:04 AM [facility] Comment:High lactate dehydro genase concentrations in patient samples may cause falsely increased bicarbonate results. If markedly elevated LDH is observed or suspected, please assess results in conjunction with patient`s clinical presentation. In cases of discrepant results, consider evaluating CO2 in with a blood gas order. Anion Gap 6 3 - 16 mmol/L 04/26/2025 1:04 AM [facility] BUN 26(H) 7 - 25 mg/dL 04/26/2025 1:04 AM [facility] Creatinine 0.53(L) 0.60 - 1.30 mg/dL 04/26/2025 1:04 AM [facility] Glucose 60(L) 70 - 100 mg/dL 04/26/2025 1:04 AM EST [facility] Calcium 7.5(L) 8.6 - 10.3 mg/dL 04/26/2025 1:04 AM EST [facility] Phosphorus 2.6 2.1 - 4.7 mg/dL 04/26/2025 1:04 AM EST [facility] Albumin 2.3(L) 3.5 - 5.7 g/dL 04/26/2025 1:04 AM EST [facility] Osmolality, Calculated 295 278 - 305 mOsm/kg 04/26/2025 1:04 AM EST [facility] EGFR >90 04/26/2025 1:04 AM EST [facility] Comment: As of 2021, the [...] MD LAB BLOOD ORDERABLES Final Resul t [facility] [address] * (ABNORMAL) CBC (04/25/2025 9:01 PM EST) WBC 5.2 3.8 - 10.8 10E3/uL 04/25/2025 9:24 PM EST [facility] RBC 2.69(L) 3.80 - 5.10 10E6/uL 04/25/2025 9:24 PM EST [facility] Hemoglobin 8.3(L) 11.7 - 15.5 g/dL 04/25/2025 9:24 PM EST [facility] Hematocrit 24.0(L) 35.0 - 45.0 % 04/25/2025 9:24 PM EST [facility] MCV 89.5 80.0 - 100.0 fL 04/25/2025 9:24 PM EST [facility] MCH 30.8 27.0 - 33.0 pg 04/25/2025 9:24 PM EST [facility] MCHC 34.4 32.0 - 36.0 g/dL 04/25/2025 9:24 PM EST [facility] RDW 16.6(H) 11.0 - 15.0 % 04/25/2025 9:24 PM EST [facility] Platelets 59(L) 140 - 400 10E3/uL 04/25/2025 9:24 PM EST [facility] MPV 9.4 7.5 - 11.5 fL 04/25/2025 9:24 PM EST [facility] Whole Blood 04/25/2025 9:01 PM EST 04/25/2025 9:16 PM EST Gloria Chen MD LAB BLOOD ORDERABLES Final Resul t [facility] [address] * Magnesium (04/25/2025 5:40 PM EST) Magnesium 2.2 1.5 - 2.5 mg/dL 04/25/2025 6:17 PM EST [facility] Plasma 04/25/2025 5:40 PM EST 04/25/2025 5:48 PM EST Gloria Chen MD LAB BLOOD ORDERABLES Final Resul t [facility] [address] [place] [address], [place] * (ABNORMAL) Renal Function Panel w/EGFR (04/25/2025 5:40 PM EST) Sodium 143 133 - 146 mmol/L 04/25/2025 6:17 PM EST [facility] Potassium 4.4 3.5 - 5.3 mmol/L 04/25/2025 6:17 PM EST [facility] Chloride 113(H) 98 - 110 mmol/L 04/25/2025 6:17 PM EST [facility] CO2 22 21 - 33 mmol/L 04/25/2025 6:17 PM EST [facility] Comment:High lactate dehydro genase concentrations in patient samples may cause falsely increased bicarbonate results. If markedly elevated LDH is observed or suspected, please assess results in conjunction with patient`s clinical presentation. In cases of discrepant results, consider evaluating CO2 in with a blood gas order. Anion Gap 8 3 - 16 mmol/L 04/25/2025 6:17 PM EST [facility] BUN 29(H) 7 - 25 mg/dL 04/25/2025 6:17 PM EST [facility] Creatinine 0.59(L) 0.60 - 1.30 mg/dL 04/25/2025 6:17 PM EST [facility] Glucose 61(L) 70 - 100 mg/dL 04/25/2025 6:17 PM EST [facility] Calcium 6.9(L) 8.6 - 10.3 mg/dL 04/25/2025 6:17 PM EST [facility] Phosphorus 2.7 2.1 - 4.7 mg/dL 04/25/2025 6:17 PM EST [facility] Albumin 2.3(L) 3.5 - 5.7 g/dL 04/25/2025 6:17 PM EST [facility] Osmolality, Calculated 300 278 - 305 mOsm/kg 04/25/2025 6:17 PM EST [facility] EGFR >90 04/25/2025 6:17 PM EST [facility] Comment: As of 2021, the [...] ORDERABLES Final Resul t Performing Organization Address [facility] Co de Phone Number [facility] [address] [facility]. [address] * Magnesium (04/25/2025 11:34 AM EST) Pathologist [facility] Magnesium 2.3 1.5 - 2.5 mg/dL 04/25/2025 12:25 PM EST [facility] Plasma 04/25/2025 11:3 4 AM EST 04/25/2025 11:49 AM EST Gloria Chen MD LAB BLOOD ORDERABLES Final Resul t Performing Organization Address [facility] de Phone Number [facility] [address] [facility]. [address] * (ABNORMAL) Renal Function Panel w/EGFR (04/25/2025 11:34 AM EST) Sodium 143 133 - 146 mmol/L 04/25/2025 12:25 PM EST [facility] Potassium 4.4 3.5 - 5.3 mmol/L 04/25/2025 12:25 PM EST [facility] Chloride 114(H) 98 - 110 mmol/L 04/25/2025 12:25 PM [facility] CO2 21 21 - 33 mmol/L 04/25/2025 12:25 PM [facility] Comment:High lactate dehydro genase concentrations in patient samples may cause falsely increased bicarbonate results. If markedly elevated LDH is observed or suspected, please assess results in conjunction with patient`s clinical presentation. In cases of discrepant results, consider evaluating CO2 in with a blood gas order. Anion Gap 8 3 - 16 mmol/L 04/25/2025 12:25 PM [facility] BUN 31(H) 7 - 25 mg/dL 04/25/2025 12:25 PM [facility] Creatinine 0.66 0.60 - 1.30 mg/dL 04/25/2025 12:25 PM [facility] Glucose 74 70 - 100 mg/dL 04/25/2025 12:25 PM [facility] Calcium 7.1(L) 8.6 - 10.3 mg/dL 04/25/2025 12:25 PM [facility] Phosphorus 2.0(L) 2.1 - 4.7 mg/dL 04/25/2025 12:25 PM [facility] Albumin 2.3(L) 3.5 - 5.7 g/dL 04/25/2025 12:25 PM [facility] Osmolality, Calculated 301 278 - 305 mOsm/kg 04/25/2025 12:25 PM [facility] EGFR >90 04/25/2025 12:25 PM [facility] Comment: As of 2021, [...] MD LAB BLOOD ORDERABLES Final Resul t [facility] [address] [place] [address], [place] * US Duplex [id number] Comp (04/25/2025 10:36 AM EST) Anatomical Region [...] EXAM: US ABDOMEN LIMITED EXAM: US DUPLEX [id number] COMPLETE INDICATION: Liver Transplant DATE: 04/25/2025 9:37 [...] EXAM: US ABDOMEN LIMITED EXAM: US DUPLEX [id number] COMPLETE INDICATION: Liver Transplant DATE: 04/25/2025 9:37 [...] 04/25/2025 11:02 AM EST Talita Pena MD [facility] [place] ORDERABLES Final Resul t * US [...] EXAM: US ABDOMEN LIMITED EXAM: US DUPLEX [id number] COMPLETE INDICATION: Liver Transplant DATE: 04/25/2025 9:37 [...] EXAM: US ABDOMEN LIMITED EXAM: US DUPLEX [id number] COMPLETE INDICATION: Liver Transplant DATE: 04/25/2025 9:37 [...] 04/25/2025 11:02 AM EST Talita Pena MD [facility] US ORDERABLES Final Resul t * (ABNORMAL) CBC (04/25/2025 8:13 AM EST) WBC 5.3 3.8 - 10.8 10E3/uL 04/25/2025 9:29 AM EST [facility] RBC 2.77(L) 3.80 - 5.10 10E6/uL 04/25/2025 9:29 AM EST [facility] Hemoglobin 8.5(L) 11.7 - 15.5 g/dL 04/25/2025 9:29 AM EST [facility] Hematocrit 24.6(L) 35.0 - 45.0 % 04/25/2025 9:29 AM EST [facility] MCV 88.7 80.0 - 100.0 fL 04/25/2025 9:29 AM EST [facility] MCH 30.6 27.0 - 33.0 pg 04/25/2025 9:29 AM EST [facility] MCHC 34.5 32.0 - 36.0 g/dL 04/25/2025 9:29 AM [facility] RDW 17.2(H) 11.0 - 15.0 % 04/25/2025 9:29 AM EST [facility] Platelets 44(L) 140 - 400 10E3/uL 04/25/2025 9:29 AM EST [facility] Comment:CNV MPV 10.2 7.5 - 11.5 fL 04/25/2025 9:29 AM EST [facility] Whole Blood 04/25/2025 8:13 AM EST 04/25/2025 8:25 AM EST us Gloria Chen MD LAB BLOOD ORDERABLES Final Resul t [facility] [address] * Lactic acid, ABG (04/25/2025 8:13 AM EST) Lactate, Art 0.6 0.5 - 1.6 mmol/L 04/25/2025 3:13 PM EST [facility] Blood, Arterial 04/25/2025 8 :13 AM EST 04/25/2025 3:11 PM EST us Lynn Gage DO LAB BLOOD ORDERABLES Final Resul t [facility] [address] [facility]. [address] * Calcium Ionized, Whole Blood (04/25/2025 8:13 AM EST) Free Calcium, WB 4.69 4.50 - 5.30 mg/dL 04/25/2025 3:13 PM EST [facility] Blood, Arterial 04/25/2025 8 :13 AM EST 04/25/2025 3:11 PM EST us Lynn Gage DO LAB BLOOD ORDERABLES Final Resul t [facility] [address] [id number], [place] * (ABNORMAL) Blood gas, arterial (04/25/2025 8:13 AM EST) O2 Sat, Arterial 100 04/25/2025 8:21 AM EST [facility] FIO2 1L 04/25/2025 8:21 AM [facility] pH, Arterial 7.39 7.35 - 7.45 04/25/2025 8:21 AM [facility] pCO2, Arterial 38 35 - 45 mm Hg 04/25/2025 8:21 AM [facility] pO2, Arterial 133(H) 80 - 100 mm Hg 04/25/2025 8:21 AM EST [facility] HCO3, Arterial 24 22 - 26 mmol/L 04/25/2025 8:21 AM [facility] CO2 Content,Arteri al 24 23 - 27 mmol/L 04/25/2025 8:21 AM [facility] Base Excess, Arterial -1.8 -2.0 - 3.0 mmol/L 04/25/2025 8:21 AM [facility] %HBO2, Arterial 96.5 95.0 - 98.0 % 04/25/2025 8:21 AM EST [facility] Carboxyhemoglo bin, Arterial 2.4 % 04/25/2025 8:21 AM EST [facility] Comment: CARBOXYHEMOGLOBIN (CO) REFERENCE RANGES: Non-Smokers: <2 % Smokers: <8 % TOXIC: >20 % Methemoglobin, Arterial 1.1 0.0 - 1.5 % 04/25/2025 8:21 AM EST [facility] Blood, Arterial 04/25/2025 8 :13 AM EST 04/25/2025 8:18 AM EST Lynn Gage DO LAB BLOOD ORDERABLES Final Resul t Performing Organization Address City/[facility]/ZIP Co de Phone Number [facility] [address] [facility]. [address] * Tacrolimus level (04/25/2025 8:13 AM EST) Tacrolimus (LC-MS) 6.0 3.0 - 15.0 ng/mL 04/25/2025 1:48 PM EST [facility] Comment:Performed via liquid chromatography tandem mass spectrometry. Detection limit: 1 ng/mL. Individual target concentrations may vary due to target organ and time after transplant. This test has been developed and its performance characteristics determined by [facility] which is certified under the [...] ORDERABLES Final Resul t Performing Organization Address [facility] Co de Phone Number [facility] [address] [facility]. [address] * Magnesium (04/25/2025 5:18 AM EST) Magnesium 2.4 1.5 - 2.5 mg/dL 04/25/2025 5:43 AM EST [facility] Plasma 04/25/2025 5:18 AM EST 04/25/2025 5:22 AM EST Gloria Chen MD LAB BLOOD ORDERABLES Final Resul t Performing Organization Address City/[facility]/ZIP Co de Phone Number [facility] [address] [facility]. [address] * (ABNORMAL) Renal Function Panel w/EGFR (04/25/2025 5:18 AM EST) Sodium 142 133 - 146 mmol/L 04/25/2025 5:43 AM EST [facility] Potassium 4.2 3.5 - 5.3 mmol/L 04/25/2025 5:43 AM [facility] Chloride 113(H) 98 - 110 mmol/L 04/25/2025 5:43 AM [facility] CO2 26 21 - 33 mmol/L 04/25/2025 5:43 AM [facility] Comment:High lactate dehydro genase concentrations in patient samples may cause falsely increased bicarbonate results. If markedly elevated LDH is observed or suspected, please assess results in conjunction with patient`s clinical presentation. In cases of discrepant results, consider evaluating CO2 in with a blood gas order. Anion Gap 3 3 - 16 mmol/L 04/25/2025 5:43 AM [facility] BUN 35(H) 7 - 25 mg/dL 04/25/2025 5:43 AM [facility] Creatinine 0.80 0.60 - 1.30 mg/dL 04/25/2025 5:43 AM [facility] Glucose 73 70 - 100 mg/dL 04/25/2025 5:43 AM [facility] Calcium 7.0(L) 8.6 - 10.3 mg/dL 04/25/2025 5:43 AM [facility] Phosphorus 2.8 2.1 - 4.7 mg/dL 04/25/2025 5:43 AM [facility] Albumin 2.3(L) 3.5 - 5.7 g/dL 04/25/2025 5:43 AM [facility] Osmolality, Calculated 301 278 - 305 mOsm/kg 04/25/2025 5:43 AM [facility] EGFR >90 04/25/2025 5:43 AM [facility] Comment: As of 2021, [...] MD LAB BLOOD ORDERABLES Final Resul t [facility] [address] * (ABNORMAL) CBC (04/25/2025 5:18 AM EST) WBC 4.9 3.8 - 10.8 10E3/uL 04/25/2025 5:45 AM EST [facility] RBC 2.68(L) 3.80 - 5.10 10E6/uL 04/25/2025 5:45 AM EST [facility] Hemoglobin 8.1(L) 11.7 - 15.5 g/dL 04/25/2025 5:45 AM EST [facility] Hematocrit 23.6(L) 35.0 - 45.0 % 04/25/2025 5:45 AM EST [facility] MCV 88.2 80.0 - 100.0 fL 04/25/2025 5:45 AM EST [facility] MCH 30.2 27.0 - 33.0 pg 04/25/2025 5:45 AM EST [facility] MCHC 34.2 32.0 - 36.0 g/dL 04/25/2025 5:45 AM EST [facility] RDW 16.8(H) 11.0 - 15.0 % 04/25/2025 5:45 AM EST [facility] Platelets 42(L) 140 - 400 10E3/uL 04/25/2025 5:45 AM EST [facility] Comment: CNV Specimen checked for clots. None detected. MPV 9.1 7.5 - 11.5 fL 04/25/2025 5:45 AM EST [facility] Whole Blood 04/25/2025 5:18 AM EST 04/25/2025 5:22 AM EST Julius Becerra MD LAB BLOOD ORDERABLES Final Resul t [facility] [address] * (ABNORMAL) Hepatic Function Panel (04/25/2025 5:18 AM EST) Total Bilirubin 4.6(H) 0.0 - 1.5 mg/dL 04/25/2025 5:43 AM EST [facility] Bilirubin, Direct 3.53(H) 0.00 - 0.40 mg/dL 04/25/2025 5:43 AM EST [facility] AST 100(H) 13 - 39 U/L 04/25/2025 5:43 AM EST [facility] ALT 128(H) 7 - 52 U/L 04/25/2025 5:43 AM EST [facility] Alkaline Phosphatase 182(H) 36 - 125 U/L 04/25/2025 5:43 AM EST [facility] Total Protein 3.8(L) 6.4 - 8.9 g/dL 04/25/2025 5:43 AM EST [facility] Albumin 2.3(L) 3.5 - 5.7 g/dL 04/25/2025 5:43 AM EST [facility] Bilirubin, Indirect 1.07 0.00 - 1.10 mg/dL 04/25/2025 5:43 AM EST [facility] Plasma 04/25/2025 5:18 AM EST 04/25/2025 5:22 AM EST Gloria Chen MD LAB BLOOD ORDERABLES Final Resul t [facility] [address] * Protime-INR, STAT (04/25/2025 5:18 AM EST) Protime 14.3 12.1 - 15.1 seconds 04/25/2025 5:40 AM EST [facility] INR 1.1 0.9 - 1.1 04/25/2025 5:40 AM EST [facility] Comment: RECOMMENDED THERAPEUTIC RANGES USING INR : Stable oral anticoagulant therapy: 2.0 - 3.0 Mechanical prosthetic heart valve: 2.5 - 3.5 Recurrent acute myocardial infarction: 2.5 - 3.5 Plasma 04/25/2025 5:18 AM EST 04/25/2025 5:22 AM EST Lynn Gage DO LAB BLOOD ORDERABLES Final Resul t Performing Organization Address [facility] Co de Phone Number [facility] [address] * POC Glucose Monitoring Device (04/25/2025 5:17 AM EST) POC Glucose Monitoring Device 74 70 - 100 mg/dL 04/25/2025 5:19 AM EST [facility] Blood 04/25/2025 5:17 AM EST 04/25/2025 5:19 AM EST Ludin Jose MD POINT OF CARE TEST ORDERABLES Fi nal Result Performing Organization Address [facility] Co de Phone Number [facility] [address] [facility]. [address] * Magnesium (04/25/2025 12:05 AM EST) Magnesium 2.5 1.5 - 2.5 mg/dL 04/25/2025 1:02 AM EST [facility] Plasma 04/25/2025 12:0 5 AM EST 04/25/2025 12:09 AM EST us Gloria Chen MD LAB BLOOD ORDERABLES Final Resul t [facility] [address] [place] [address], [place] * (ABNORMAL) Renal Function Panel w/EGFR (04/25/2025 12:05 AM EST) Sodium 142 133 - 146 mmol/L 04/25/2025 1:02 AM EST [facility] Potassium 4.5 3.5 - 5.3 mmol/L 04/25/2025 1:02 AM [facility] Chloride 112(H) 98 - 110 mmol/L 04/25/2025 1:02 AM [facility] CO2 25 21 - 33 mmol/L 04/25/2025 1:02 AM [facility] Comment:High lactate dehydro genase concentrations in patient samples may cause falsely increased bicarbonate results. If markedly elevated LDH is observed or suspected, please assess results in conjunction with patient`s clinical presentation. In cases of discrepant results, consider evaluating CO2 in with a blood gas order. Anion Gap 5 3 - 16 mmol/L 04/25/2025 1:02 AM [facility] BUN 34(H) 7 - 25 mg/dL 04/25/2025 1:02 AM [facility] Creatinine 0.85 0.60 - 1.30 mg/dL 04/25/2025 1:02 AM [facility] Glucose 74 70 - 100 mg/dL 04/25/2025 1:02 AM [facility] Calcium 7.3(L) 8.6 - 10.3 mg/dL 04/25/2025 1:02 AM [facility] Phosphorus 3.3 2.1 - 4.7 mg/dL 04/25/2025 1:02 AM [facility] Albumin 2.3(L) 3.5 - 5.7 g/dL 04/25/2025 1:02 AM [facility] Osmolality, Calculated 300 278 - 305 mOsm/kg 04/25/2025 1:02 AM [facility] EGFR >90 04/25/2025 1:02 AM [facility] Comment: As of 2021, [...] MD LAB BLOOD ORDERABLES Final Resul t [facility] [address] * (ABNORMAL) CBC (04/25/2025 12:05 AM EST) WBC 6.1 3.8 - 10.8 10E3/uL 04/25/2025 12:38 AM EST [facility] RBC 2.79(L) 3.80 - 5.10 10E6/uL 04/25/2025 12:38 AM EST [facility] Hemoglobin 8.4(L) 11.7 - 15.5 g/dL 04/25/2025 12:38 AM EST [facility] Hematocrit 24.5(L) 35.0 - 45.0 % 04/25/2025 12:38 AM EST [facility] MCV 87.8 80.0 - 100.0 fL 04/25/2025 12:38 AM EST [facility] MCH 30.2 27.0 - 33.0 pg 04/25/2025 12:38 AM EST [facility] MCHC 34.4 32.0 - 36.0 g/dL 04/25/2025 12:38 AM EST [facility] RDW 16.9(H) 11.0 - 15.0 % 04/25/2025 12:38 AM EST [facility] Platelets 43(L) 140 - 400 10E3/uL 04/25/2025 12:38 AM EST [facility] Comment: CNV Specimen checked for clots. None detected. MPV 9.6 7.5 - 11.5 fL 04/25/2025 12:38 AM EST [facility] Whole Blood 04/25/2025 12:0 5 AM EST 04/25/2025 12:09 AM EST us Julius Becerra MD LAB BLOOD ORDERABLES Final Resul t Performing Organization Address City/[facility] Co de Phone Number [facility] [address] [facility] * POC Glucose Monitoring Device (04/25/2025 12:04 AM EST) POC Glucose Monitoring Device [id number] 100 mg/dL 04/25/2025 12:05 AM EST [facility] Blood 04/25/2025 12:0 4 AM EST 04/25/2025 12:05 AM EST us Ludin Jose MD POINT OF CARE TEST ORDERABLES Fi nal Result Performing Organization Address [facility] Co de Phone Number [facility] [address] [facility]. [address] * Magnesium (04/24/2025 6:40 PM EST) Magnesium 2.4 1.5 - 2.5 mg/dL 04/24/2025 7:19 PM EST [facility] Plasma 04/24/2025 6:40 PM EST 04/24/2025 6:44 PM EST us Gloria Chen MD LAB BLOOD ORDERABLES Final Resul t Performing Organization Address City/[facility]/ZIP Co de Phone Number [facility] [address] [facility] * (ABNORMAL) Renal Function Panel w/EGFR (04/24/2025 6:40 PM EST) Sodium 141 133 - 146 mmol/L 04/24/2025 7:19 PM [facility] Potassium 4.6 3.5 - 5.3 mmol/L 04/24/2025 7:19 PM [facility] Chloride 112(H) 98 - 110 mmol/L 04/24/2025 7:19 PM [facility] CO2 24 21 - 33 mmol/L 04/24/2025 7:19 PM [facility] Comment:High lactate dehydro genase concentrations in patient samples may cause falsely increased bicarbonate results. If markedly elevated LDH is observed or suspected, please assess results in conjunction with patient`s clinical presentation. In cases of discrepant results, consider evaluating CO2 in with a blood gas order. Anion Gap 5 3 - 16 mmol/L 04/24/2025 7:19 PM [facility] BUN 33(H) 7 - 25 mg/dL 04/24/2025 7:19 PM [facility] Creatinine 0.93 0.60 - 1.30 mg/dL 04/24/2025 7:19 PM [facility] Glucose 100 70 - 100 mg/dL 04/24/2025 7:19 PM [facility] Calcium 7.3(L) 8.6 - 10.3 mg/dL 04/24/2025 7:19 PM [facility] Phosphorus 3.5 2.1 - 4.7 mg/dL 04/24/2025 7:19 PM [facility] Albumin 2.4(L) 3.5 - 5.7 g/dL 04/24/2025 7:19 PM [facility] Osmolality, Calculated 299 278 - 305 mOsm/kg 04/24/2025 7:19 PM [facility] EGFR 82 04/24/2025 7:19 PM [facility] Comment:As of 2021, the [...] MD LAB BLOOD ORDERABLES Final Resul t [facility] [address] * (ABNORMAL) CBC (04/24/2025 6:40 PM EST) WBC 7.2 3.8 - 10.8 10E3/uL 04/24/2025 7:14 PM EST [facility] RBC 2.91(L) 3.80 - 5.10 10E6/uL 04/24/2025 7:14 PM EST [facility] Hemoglobin 8.9(L) 11.7 - 15.5 g/dL 04/24/2025 7:14 PM EST [facility] Hematocrit 25.4(L) 35.0 - 45.0 % 04/24/2025 7:14 PM EST [facility] MCV 87.2 80.0 - 100.0 fL 04/24/2025 7:14 PM EST [facility] MCH 30.5 27.0 - 33.0 pg 04/24/2025 7:14 PM EST [facility] MCHC 35.0 32.0 - 36.0 g/dL 04/24/2025 7:14 PM EST [facility] RDW 17.2(H) 11.0 - 15.0 % 04/24/2025 7:14 PM EST [facility] Platelets 47(L) 140 - 400 10E3/uL 04/24/2025 7:14 PM EST [facility] Comment:CNV MPV 10.1 7.5 - 11.5 fL 04/24/2025 7:14 PM EST [facility] Whole Blood 04/24/2025 6:40 PM EST 04/24/2025 6:44 PM EST us Julius Becerra MD LAB BLOOD ORDERABLES Final Resul t [facility] [address] * POC Glucose Monitoring Device (04/24/2025 6:38 PM EST) POC Glucose Monitoring Device 97 70 - 100 mg/dL 04/24/2025 6:38 PM EST [facility] Blood 04/24/2025 6:38 PM EST 04/24/2025 6:38 PM EST Ludin Jose MD POINT OF CARE TEST ORDERABLES Fi nal Result Performing Organization Address City/[facility] Co de Phone Number [facility] [address] * (ABNORMAL) Blood Gas, Arterial, STAT (04/24/2025 12:29 PM EST) O2 Sat, Arterial 99 04/24/2025 12:36 PM [facility] FIO2 3L 04/24/2025 12:36 PM [facility] pH, Arterial 7.37 7.35 - 7.45 04/24/2025 12:36 PM [facility] pCO2, Arterial 39 35 - 45 mm Hg 04/24/2025 12:36 PM [facility] pO2, Arterial 109(H) 80 - 100 mm Hg 04/24/2025 12:36 PM EST [facility] HCO3, Arterial 23 22 - 26 mmol/L 04/24/2025 12:36 PM [facility] CO2 Content,Arteri al 24 23 - 27 mmol/L 04/24/2025 12:36 PM [facility] Base Excess, Arterial -2.5(L) -2.0 - 3.0 mmol/L 04/24/2025 12:36 PM EST [facility] %HBO2, Arterial 97.1 95.0 - 98.0 % 04/24/2025 12:36 PM EST [facility] Carboxyhemoglo bin, Arterial 1.5 % 04/24/2025 12:36 PM EST [facility] Comment: CARBOXYHEMOGLOBIN (CO) REFERENCE RANGES: Non-Smokers: <2 % Smokers: <8 % TOXIC: >20 % Methemoglobin, Arterial 0.0 0.0 - 1.5 % 04/24/2025 12:36 PM EST [facility] Blood, Arterial 04/24/2025 1 2:29 PM EST 04/24/2025 12:33 PM EST us Judith Murcia MD LAB BLOOD ORDERABLES Final Res ult Performing Organization Address City/[facility]/ZIP Co de Phone Number [facility] [address] [facility]. [address] * Magnesium (04/24/2025 12:29 PM EST) Magnesium 2.4 1.5 - 2.5 mg/dL 04/24/2025 1:30 PM EST [facility] Plasma 04/24/2025 12:2 9 PM EST 04/24/2025 12:55 PM EST us Gloria Chen MD LAB BLOOD ORDERABLES Final Resul t Performing Organization Address [facility] Co de Phone Number [facility] [address] [facility]. [address] * (ABNORMAL) Renal Function Panel w/EGFR (04/24/2025 12:29 PM EST) Sodium 140 133 - 146 mmol/L 04/24/2025 1:30 PM EST [facility] Potassium 4.6 3.5 - 5.3 mmol/L 04/24/2025 1:30 PM EST [facility] Chloride 110 98 - 110 mmol/L 04/24/2025 1:30 PM EST [facility] CO2 24 21 - 33 mmol/L 04/24/2025 1:30 PM EST [facility] Comment:High lactate dehydro genase concentrations in patient samples may cause falsely increased bicarbonate results. If markedly elevated LDH is observed or suspected, please assess results in conjunction with patient`s clinical presentation. In cases of discrepant results, consider evaluating CO2 in with a blood gas order. Anion Gap 6 3 - 16 mmol/L 04/24/2025 1:30 PM EST [facility] BUN 38(H) 7 - 25 mg/dL 04/24/2025 1:30 PM EST [facility] Creatinine 1.21 0.60 - 1.30 mg/dL 04/24/2025 1:30 PM EST [facility] Glucose 117(H) 70 - 100 mg/dL 04/24/2025 1:30 PM EST [facility] Calcium 7.3(L) 8.6 - 10.3 mg/dL 04/24/2025 1:30 PM EST [facility] Phosphorus 4.0 2.1 - 4.7 mg/dL 04/24/2025 1:30 PM EST [facility] Albumin 2.4(L) 3.5 - 5.7 g/dL 04/24/2025 1:30 PM EST [facility] Osmolality, Calculated 300 278 - 305 mOsm/kg 04/24/2025 1:30 PM EST [facility] EGFR 60 04/24/2025 1:30 PM EST [facility] Comment:As of 2021, the estimated [...] MD LAB BLOOD ORDERABLES Final Resul t [facility] [address] [facility]. [address] * (ABNORMAL) CBC (04/24/2025 12:29 PM EST) WBC 8.8 3.8 - 10.8 10E3/uL 04/24/2025 1:11 PM EST [facility] RBC 2.98(L) 3.80 - 5.10 10E6/uL 04/24/2025 1:11 PM EST [facility] Hemoglobin 9.1(L) 11.7 - 15.5 g/dL 04/24/2025 1:11 PM EST [facility] Hematocrit 25.9(L) 35.0 - 45.0 % 04/24/2025 1:11 PM EST [facility] MCV 87.0 80.0 - 100.0 fL 04/24/2025 1:11 PM EST [facility] MCH 30.6 27.0 - 33.0 pg 04/24/2025 1:11 PM EST [facility] MCHC 35.2 32.0 - 36.0 g/dL 04/24/2025 1:11 PM EST [facility] RDW 17.0(H) 11.0 - 15.0 % 04/24/2025 1:11 PM EST [facility] Platelets 49(L) 140 - 400 10E3/uL 04/24/2025 1:11 PM EST [facility] Comment:CNV MPV 9.7 7.5 - 11.5 fL 04/24/2025 1:11 PM EST [facility] Whole Blood 04/24/2025 12:2 9 PM EST 04/24/2025 12:55 PM EST Julius Becerra MD LAB BLOOD ORDERABLES Final Resul t [facility] [address] [facility]. [address] * (ABNORMAL) POC Glucose Monitoring Device (04/24/2025 12:25 PM EST) POC Glucose Monitoring Device 112(H) 70 - 100 mg/dL 04/24/2025 12:33 PM EST [facility] Blood 04/24/2025 12:2 5 PM EST 04/24/2025 12:32 PM EST Ludin Jose MD POINT OF CARE TEST ORDERABLES Fi nal Result [facility] [address] [place] [address], [place] * X-ray Portable Chest (04/24/2025 8:52 AM [...] * Tacrolimus level (04/24/2025 7:57 AM EST) Tacrolimus (LC-MS) 10.5 3.0 - 15.0 ng/mL 04/24/2025 12:56 PM EST [facility] Comment:Performed via liquid chromatography tandem mass spectrometry. Detection limit: 1 ng/mL. Individual target concentrations may vary due to target organ and time after transplant. This test has been developed and its performance characteristics determined by [facility] which is certified under the [...] MD LAB BLOOD ORDERABLES Final Resul t [facility] [address] * Prepare RBC, leukoreduced, 6 Units (04/24/2025 6:15 AM EST) Product Code M0531E52 HCLL Unit Number [id number] HCLL Dispense Status Presumed Transfused_PT HCLL Blood Expiration Date HCLL Coding System DHPM203 HCLL Product Code N2703Q20 HCLL Unit Number [id number] HCLL Dispense Status Presumed Transfused_PT HCLL Blood Expiration Date HCLL Coding System KNGE844 HCLL Blood Bank Product Moe Luis MD BLOOD BANK PRODUCT ORD ERABLES Final Result HCLL * Prepare RBC, leukoreduced, 4 Units (04/24/2025 6:15 AM EST) Product Code B7838F64 HCLL Unit Number [id number] HCLL Dispense Status Presumed Transfused_PT HCLL Blood Expiration Date HCLL Coding System RHRX378 HCLL Product Code B8763I24 HCLL Unit Number [id number] HCLL Dispense Status Released from Crossmatch_RE HCLL Blood Expiration Date HCLL Coding System WDSV869 HCLL Product Code W5721F09 HCLL Unit Number [id number] HCLL Dispense Status Released from Crossmatch_RE HCLL Blood Expiration Date HCLL Coding System SKGX986 HCLL Product Code B8120L20 HCLL Unit Number [id number] HCLL Dispense Status Released from Crossmatch_RE HCLL Blood Expiration Date HCLL Coding System DMLZ461 HCLL Product Code Y7994K25 HCLL Unit Number [id number] HCLL Dispense Status Released from Crossmatch_RE HCLL Blood Expiration Date HCLL Coding System QBFQ848 HCLL Product Code M9112P45 HCLL Unit Number [id number] HCLL Dispense Status Released from Crossmatch_RE HCLL Blood Expiration Date HCLL Coding System HTVS390 HCLL Blood Bank Product Catracho Hui MD BLOOD BANK PRODUCT ORDERAB LES Final Result HCLL * Prepare Platelets, leukoreduced, 1 Units (04/24/2025 6:15 AM EST) Product Code Y7559H52 HCLL Unit Number [id number] HCLL Dispense Status Presumed Transfused_PT HCLL Blood Expiration Date HCLL Coding System CJNM930 HCLL Blood Bank Product us Sergey Altman MD BLOOD BANK PRODUCT O RDERABLES Final Result HCLL * Prepare Cryoprecipitate, 1 Units (04/24/2025 6:15 AM EST) Product Code T0506K42 HCLL Unit Number [id number] HCLL Dispense Status Presumed Transfused_PT HCLL Blood Expiration Date HCLL Coding System WCWL844 HCLL Product Code Y1015A39 HCLL Unit Number [id number] HCLL Dispense Status Presumed Transfused_PT HCLL Blood Expiration Date [id number] HCLL Coding System FMEK190 HCLL Blood Bank Product us Sergey Altman MD BLOOD BANK PRODUCT O RDERABLES Final Result Performing Organization Address [facility] Co de Phone Number HCLL * Prepare Cryoprecipitate, 1 Units (04/24/2025 6:15 AM EST) Product Code Z1959D69 HCLL Unit Number [id number] HCLL Dispense Status Presumed Transfused_PT HCLL Blood Expiration Date HCLL Coding System LWWO455 HCLL Product Code H7140S48 HCLL Unit Number [id number] HCLL Dispense Status Presumed Transfused_PT HCLL Blood Expiration Date [id number] HCLL Coding System IGJZ772 HCLL Blood Bank Product us Sergey Altman MD BLOOD BANK PRODUCT O RDERABLES Final Result HCLL * Prepare Fresh Frozen Plasma, 2 Units (04/24/2025 6:15 AM EST) Product Code V3918K54 HCLL Unit Number [id number] HCLL Dispense Status Presumed Transfused_PT HCLL Blood Expiration Date [id number] HCLL Coding System MGXK738 HCLL Product Code Q0344D26 HCLL Unit Number [id number] HCLL Dispense Status Presumed Transfused_PT HCLL Blood Expiration Date HCLL Coding System TLYC498 HCLL Blood Bank Product Sergey Altman MD BLOOD BANK PRODUCT O RDERABLES Final Result HCLL * Prepare RBC, leukoreduced, 3 Units (04/24/2025 6:15 AM EST) Product Code T2425P51 HCLL Unit Number [id number] HCLL Dispense Status Presumed Transfused_PT HCLL Blood Expiration Date HCLL Coding System QUER492 HCLL Product Code A8715E59 HCLL Unit Number [id number] HCLL Dispense Status Presumed Transfused_PT HCLL Blood Expiration Date HCLL Coding System EOZZ513 HCLL Product Code V7909Y06 HCLL Unit Number [id number] HCLL Dispense Status Released from Crossmatch_RE HCLL Blood Expiration Date HCLL Coding System FRAN177 HCLL Blood Bank Product us Sergey Altman MD BLOOD BANK PRODUCT O RDERABLES Final Result Performing Organization Address City/[facility]/ZIP Co de Phone Number HCLL * Prepare RBC, leukoreduced, 1 Units (04/24/2025 6:15 AM EST) Product Code H9162Y82 HCLL Unit Number [id number] HCLL Dispense Status Presumed Transfused_PT HCLL Blood Expiration Date HCLL Coding System QYXJ405 HCLL Blood Bank Product Sergey Altman MD BLOOD BANK PRODUCT O RDERABLES Final Result HCLL * Prepare RBC, leukoreduced, 2 Units (04/24/2025 6:15 AM EST) Product Code T6824O38 HCLL Unit Number [id number] HCLL Dispense Status Presumed Transfused_PT HCLL Blood Expiration Date HCLL Coding System WMBP935 HCLL Product Code J9325U81 HCLL Unit Number [id number] HCLL Dispense Status Presumed Transfused_PT HCLL Blood Expiration Date HCLL Coding System ZBAS702 HCLL Blood Bank Product Sergey Altman MD BLOOD BANK PRODUCT O RDERABLES Final Result HCLL * (ABNORMAL) Blood Gas, Arterial, STAT (04/24/2025 5:43 AM EST) O2 Sat, Arterial 100 04/24/2025 5:49 AM EST [facility] FIO2 40% 04/24/2025 5:49 AM [facility] pH, Arterial 7.37 7.35 - 7.45 04/24/2025 5:49 AM EST [facility] pCO2, Arterial 40 35 - 45 mm Hg 04/24/2025 5:49 AM [facility] pO2, Arterial 107(H) 80 - 100 mm Hg 04/24/2025 5:49 AM EST [facility] HCO3, Arterial 23 22 - 26 mmol/L 04/24/2025 5:49 AM [facility] CO2 Content,Arteri al 24 23 - 27 mmol/L 04/24/2025 5:49 AM [facility] Base Excess, Arterial -2.0 -2.0 - 3.0 mmol/L 04/24/2025 5:49 AM EST [facility] %HBO2, Arterial 97.3 95.0 - 98.0 % 04/24/2025 5:49 AM EST [facility] Carboxyhemoglo bin, Arterial 2.7 % 04/24/2025 5:49 AM EST [facility] Comment: CARBOXYHEMOGLOBIN (CO) REFERENCE RANGES: Non-Smokers: <2 % Smokers: <8 % TOXIC: >20 % Methemoglobin, Arterial 0.0 0.0 - 1.5 % 04/24/2025 5:49 AM EST [facility] Blood, Arterial 04/24/2025 5 :43 AM EST 04/24/2025 5:46 AM EST us Judith Murcia MD LAB BLOOD ORDERABLES Final Res ult Performing Organization Address [facility]/ZIP Co de Phone Number [facility] [address] [facility]. [address] * (ABNORMAL) POC Glucose Monitoring Device (04/24/2025 4:38 AM EST) POC Glucose Monitoring Device 103(H) 70 - 100 mg/dL 04/24/2025 4:39 AM EST [facility] Blood 04/24/2025 4:38 AM EST 04/24/2025 4:39 AM EST us Ludin Jose MD POINT OF CARE TEST ORDERABLES Fi nal Result Performing Organization Address [facility] Co de Phone Number [facility] [address] [facility]. [address] * Protime-INR, STAT (04/24/2025 4:36 AM EST) Protime 14.7 12.1 - 15.1 seconds 04/24/2025 5:13 AM EST [facility] INR 1.1 0.9 - 1.1 04/24/2025 5:13 AM EST [facility] Comment: RECOMMENDED THERAPEUTIC RANGES USING INR : Stable oral anticoagulant therapy: 2.0 - 3.0 Mechanical prosthetic heart valve: 2.5 - 3.5 Recurrent acute myocardial infarction: 2.5 - 3.5 Plasma 04/24/2025 4:36 AM EST 04/24/2025 4:44 AM EST us Judith Murcia MD LAB BLOOD ORDERABLES Final Res ult Performing Organization Address [facility]/ZIP Co de Phone Number [facility] [address] [facility]. [address] * TEG-Bypass/ECMO/Liver HN (Factor function, Platelet/Fibrin Clot Strength w/Clot Breakdown, Heparinase In All Channels) (04/24/2025 4:36 AM EST) Citrated Kaolin Reaction Time (TEGECMOLIVER) 6.2 4.6 - 9.1 minutes 04/24/2025 6:00 AM EST [facility] Citrated Kaolin W/Heparinase Reaction Time (TEGECMOLIVER) 5.3 4.3 - 8.3 minutes 04/24/2025 6:00 AM EST [facility] Citrated Kaolin Maximum Amplitude (TEGECMOLIVER) 58.2 52.0 - 69.0 mm 04/24/2025 6:00 AM EST [facility] Citrated Functional Fibrinogen W/Heparinase Maximum Amplitude(TEGEC MOLIVER) 19.2 15.0 - 34.0 mm 04/24/2025 6:00 AM EST [facility] Citrated Rapid Teg W/Heparinase Maximum Amplitude (TEGECMOLIVER) 55.6 53.0 - 69.0 mm 04/24/2025 6:00 AM EST [facility] Citrated Kaolin w/Heparinase Percent Lysis (TEGECMOLIVER) 0.0 0.0 - 3.2 % 04/24/2025 6:00 AM EST [facility] Whole Blood (Citrate) 04/24/2025 4:36 AM EST 04/24/2025 4:44 AM EST Julius Becerra MD LAB BLOOD ORDERABLES Final Resul t [facility] [address] * Magnesium (04/24/2025 4:36 AM EST) Magnesium 2.4 1.5 - 2.5 mg/dL 04/24/2025 5:16 AM EST [facility] Plasma 04/24/2025 4:36 AM EST 04/24/2025 4:44 AM EST Gloria Chen MD LAB BLOOD ORDERABLES Final Resul t [facility] [address] [place] [address], [place] * (ABNORMAL) Renal Function Panel w/EGFR (04/24/2025 4:36 AM EST) Sodium 139 133 - 146 mmol/L 04/24/2025 5:16 AM EST [facility] Potassium 4.9 3.5 - 5.3 mmol/L 04/24/2025 5:16 AM EST [facility] Chloride 108 98 - 110 mmol/L 04/24/2025 5:16 AM EST [facility] CO2 26 21 - 33 mmol/L 04/24/2025 5:16 AM EST [facility] Comment:High lactate dehydro genase concentrations in patient samples may cause falsely increased bicarbonate results. If markedly elevated LDH is observed or suspected, please assess results in conjunction with patient`s clinical presentation. In cases of discrepant results, consider evaluating CO2 in with a blood gas order. Anion Gap 5 3 - 16 mmol/L 04/24/2025 5:16 AM EST [facility] BUN 38(H) 7 - 25 mg/dL 04/24/2025 5:16 AM EST [facility] Creatinine 1.25 0.60 - 1.30 mg/dL 04/24/2025 5:16 AM EST [facility] Glucose 99 70 - 100 mg/dL 04/24/2025 5:16 AM EST [facility] Calcium 7.6(L) 8.6 - 10.3 mg/dL 04/24/2025 5:16 AM EST [facility] Phosphorus 5.0(H) 2.1 - 4.7 mg/dL 04/24/2025 5:16 AM EST [facility] Albumin 2.4(L) 3.5 - 5.7 g/dL 04/24/2025 5:16 AM EST [facility] Osmolality, Calculated 297 278 - 305 mOsm/kg 04/24/2025 5:16 AM EST [facility] EGFR 58 04/24/2025 5:16 AM EST [facility] Comment:As of 2021, the estimated [...] C, Hernandez M, Chato [place], Suzy [place], yJoti [place], Nas [place], et al. A Unifying Approach for GFR Estimation: Recommendations of the NKF-ASN Task Force on Reassessing the inclusion of Race in Diagnosing Kidney Disease. Am J Kidney Dis. 2020. Plasma 04/24/2025 4:36 AM EST 04/24/2025 4:44 AM EST us Gloria Chen MD LAB BLOOD ORDERABLES Final Resul t [facility] [address] [place] [address], [place] * (ABNORMAL) CBC (04/24/2025 4:36 AM EST) WBC 9.4 3.8 - 10.8 10E3/uL 04/24/2025 4:48 AM EST [facility] RBC 3.29(L) 3.80 - 5.10 10E6/uL 04/24/2025 4:48 AM EST [facility] Hemoglobin 9.9(L) 11.7 - 15.5 g/dL 04/24/2025 4:48 AM EST [facility] Hematocrit 28.3(L) 35.0 - 45.0 % 04/24/2025 4:48 AM EST [facility] MCV 86.1 80.0 - 100.0 fL 04/24/2025 4:48 AM EST [facility] MCH 30.2 27.0 - 33.0 pg 04/24/2025 4:48 AM EST [facility] MCHC 35.1 32.0 - 36.0 g/dL 04/24/2025 4:48 AM EST [facility] RDW 17.1(H) 11.0 - 15.0 % 04/24/2025 4:48 AM EST [facility] Platelets 55(L) 140 - 400 10E3/uL 04/24/2025 4:48 AM EST [facility] MPV 9.2 7.5 - 11.5 fL 04/24/2025 4:48 AM EST [facility] Whole Blood 04/24/2025 4:36 AM EST 04/24/2025 4:44 AM EST Julius Becerra MD LAB BLOOD ORDERABLES Final Resul t Performing Organization Address [facility]/ZIP Co de Phone Number [facility] [address] [facility] * (ABNORMAL) Hepatic Function Panel (04/24/2025 4:36 AM EST) Total Bilirubin 2.9(H) 0.0 - 1.5 mg/dL 04/24/2025 5:16 AM EST [facility] Bilirubin, Direct 2.19(H) 0.00 - 0.40 mg/dL 04/24/2025 5:16 AM EST [facility] AST 77(H) 13 - 39 U/L 04/24/2025 5:16 AM EST [facility] ALT 98(H) 7 - 52 U/L 04/24/2025 5:16 AM EST [facility] Alkaline Phosphatase 84 36 - 125 U/L 04/24/2025 5:16 AM EST [facility] Total Protein 3.9(L) 6.4 - 8.9 g/dL 04/24/2025 5:16 AM EST [facility] Albumin 2.4(L) 3.5 - 5.7 g/dL 04/24/2025 5:16 AM EST [facility] Bilirubin, Indirect 0.71 0.00 - 1.10 mg/dL 04/24/2025 5:16 AM EST [facility] Plasma 04/24/2025 4:36 AM EST 04/24/2025 4:44 AM EST Gloria Chen MD LAB BLOOD ORDERABLES Final Resul t Performing Organization Address City/[facility]/ZIP Co de Phone Number [facility] [address] [facility]. [address] * (ABNORMAL) POC Glucose Monitoring Device (04/24/2025 12:12 AM EDT) POC Glucose Monitoring Device 118(H) 70 - 100 mg/dL 04/24/2025 12:22 AM EDT [facility] Blood 04/24/2025 12:1 2 AM EDT 04/24/2025 12:22 AM EDT us Ludin Jose MD POINT OF CARE TEST ORDERABLES Fi nal Result Performing Organization Address [facility] Co de Phone Number [facility] [address] * Protime-INR, STAT (04/24/2025 12:00 AM EDT) Protime 14.9 12.1 - 15.1 seconds 04/24/2025 12:59 AM EDT [facility] INR 1.1 0.9 - 1.1 04/24/2025 12:59 AM EDT [facility] Comment: RECOMMENDED THERAPEUTIC RANGES USING INR : Stable oral anticoagulant therapy: 2.0 - 3.0 Mechanical prosthetic heart valve: 2.5 - 3.5 Recurrent acute myocardial infarction: 2.5 - 3.5 Plasma 04/24/2025 04/24/2025 12: 27 AM EDT Judith Murcia MD LAB BLOOD ORDERABLES Final Res ult Performing Organization Address [facility] de Phone Number [facility] [address] [facility]. [address] * (ABNORMAL) Blood Gas, Arterial, STAT (04/24/2025 12:00 AM EDT) O2 Sat, Arterial 100 04/24/2025 12:32 AM EDT [facility] FIO2 40% FiO2 04/24/2025 12:32 AM EDT [facility] pH, Arterial 7.34(L) 7.35 - 7.45 04/24/2025 12:32 AM EDT [facility] pCO2, Arterial 45 35 - 45 mm Hg 04/24/2025 12:32 AM EDT [facility] pO2, Arterial 102(H) 80 - 100 mm Hg 04/24/2025 12:32 AM EDT [facility] HCO3, Arterial 24 22 - 26 mmol/L 04/24/2025 12:32 AM EDT [facility] CO2 Content,Arteri al 26 23 - 27 mmol/L 04/24/2025 12:32 AM EDT [facility] Base Excess, Arterial -1.6 -2.0 - 3.0 mmol/L 04/24/2025 12:32 AM EDT [facility] %HBO2, Arterial 96.7 95.0 - 98.0 % 04/24/2025 12:32 AM EDT [facility] Carboxyhemoglo bin, Arterial 2.2 % 04/24/2025 12:32 AM EDT [facility] Comment: CARBOXYHEMOGLOBIN (CO) REFERENCE RANGES: Non-Smokers: <2 % Smokers: <8 % TOXIC: >20 % Methemoglobin, Arterial 0.9 0.0 - 1.5 % 04/24/2025 12:32 AM EDT [facility] Blood, Arterial 04/24/2025 12:27 AM EDT us Judith Murcia MD LAB BLOOD ORDERABLES Final Res ult [facility] [address] [place] [address], [place] * TEG-Bypass/ECMO/Liver HN (Factor function, Platelet/Fibrin Clot Strength w/Clot Breakdown, Heparinase In All Channels) (04/24/2025 12:00 AM EDT) [facility] Citrated Kaolin Reaction Time (TEGECMOLIVER) 6.0 4.6 - 9.1 minutes 04/24/2025 1:08 AM EDT [facility] Citrated Kaolin W/Heparinase Reaction Time (TEGECMOLIVER) 5.4 4.3 - 8.3 minutes 04/24/2025 1:08 AM EDT [facility] Citrated Kaolin Maximum Amplitude (TEGECMOLIVER) 59.2 52.0 - 69.0 mm 04/24/2025 1:08 AM EDT [facility] Citrated Functional Fibrinogen W/Heparinase Maximum Amplitude(TEGEC MOLIVER) 19.4 15.0 - 34.0 mm 04/24/2025 1:08 AM EDT [facility] Citrated Rapid Teg W/Heparinase Maximum Amplitude (TEGECMOLIVER) 57.1 53.0 - 69.0 mm 04/24/2025 1:08 AM EDT [facility] Citrated Kaolin w/Heparinase Percent Lysis (TEGECMOLIVER) 0.0 0.0 - 3.2 % 04/24/2025 1:08 AM EDT [facility] Whole Blood (Citrate) 04/24/2025 04/24/2025 12:27 AM EDT Julius Becerra MD LAB BLOOD ORDERABLES Final Resul t Performing Organization Address City/[facility]/ZIP Co de Phone Number [facility] [address] [facility]. [address] * Magnesium (04/24/2025 12:00 AM EDT) Magnesium 2.4 1.5 - 2.5 mg/dL 04/24/2025 12:54 AM EDT [facility] Plasma 04/24/2025 04/24/2025 12: 27 AM EDT Gloria Chen MD LAB BLOOD ORDERABLES Final Resul t [facility] [address] [facility]. [address] * (ABNORMAL) Renal Function Panel w/EGFR (04/24/2025 12:00 AM EDT) Sodium 138 133 - 146 mmol/L 04/24/2025 12:54 AM EDT [facility] Potassium 5.3 3.5 - 5.3 mmol/L 04/24/2025 12:54 AM EDT [facility] Chloride 108 98 - 110 mmol/L 04/24/2025 12:54 AM EDT [facility] CO2 26 21 - 33 mmol/L 04/24/2025 12:54 AM EDT [facility] Comment:High lactate dehydro genase concentrations in patient samples may cause falsely increased bicarbonate results. If markedly elevated LDH is observed or suspected, please assess results in conjunction with patient`s clinical presentation. In cases of discrepant results, consider evaluating CO2 in with a blood gas order. Anion Gap 4 3 - 16 mmol/L 04/24/2025 12:54 AM EDT [facility] BUN 37(H) 7 - 25 mg/dL 04/24/2025 12:54 AM EDT [facility] Creatinine 1.25 0.60 - 1.30 mg/dL 04/24/2025 12:54 AM EDT [facility] Glucose 118(H) 70 - 100 mg/dL 04/24/2025 12:54 AM EDT [facility] Calcium 7.9(L) 8.6 - 10.3 mg/dL 04/24/2025 12:54 AM EDT [facility] Phosphorus 5.4(H) 2.1 - 4.7 mg/dL 04/24/2025 12:[facility] Albumin 2.5(L) 3.5 - 5.7 g/dL 04/24/2025 12:54 AM EDT [facility] Osmolality, Calculated 296 278 - 305 mOsm/kg 04/24/2025 12:[facility] EGFR 58 04/24/2025 12:54 AM [facility] Comment:As of 2021, the estimated [...] MD LAB BLOOD ORDERABLES Final Resul t [facility] [address] * (ABNORMAL) CBC (04/24/2025 12:00 AM EDT) WBC 10.5 3.8 - 10.8 10E3/uL 04/24/2025 12:31 AM EDT [facility] RBC 3.41(L) 3.80 - 5.10 10E6/uL 04/24/2025 12:31 AM EDT [facility] Hemoglobin 10.4(L) 11.7 - 15.5 g/dL 04/24/2025 12:31 AM EDT [facility] Hematocrit 29.6(L) 35.0 - 45.0 % 04/24/2025 12:31 AM EDT [facility] MCV 86.8 80.0 - 100.0 fL 04/24/2025 12:31 AM EDT [facility] MCH 30.4 27.0 - 33.0 pg 04/24/2025 12:31 AM EDT [facility] MCHC 35.1 32.0 - 36.0 g/dL 04/24/2025 12:31 AM EDT [facility] RDW 16.8(H) 11.0 - 15.0 % 04/24/2025 12:31 AM EDT [facility] Platelets 65(L) 140 - 400 10E3/uL 04/24/2025 12:31 AM EDT [facility] MPV 9.8 7.5 - 11.5 fL 04/24/2025 12:31 AM EDT [facility] Whole Blood 04/24/2025 04/24/2025 12 :27 AM EDT us Julius Becerra MD LAB BLOOD ORDERABLES Final Resul t [facility] [address] * Protime-INR, STAT (04/23/2025 6:11 PM EDT) Protime 15.1 12.1 - 15.1 seconds 04/23/2025 6:38 PM EDT [facility] INR 1.1 0.9 - 1.1 04/23/2025 6:38 PM EDT [facility] Comment: RECOMMENDED THERAPEUTIC RANGES USING INR : Stable oral anticoagulant therapy: 2.0 - 3.0 Mechanical prosthetic heart valve: 2.5 - 3.5 Recurrent acute myocardial infarction: 2.5 - 3.5 Plasma 04/23/2025 6:11 PM EDT 04/23/2025 6:17 PM EDT us Judith Murcia MD LAB BLOOD ORDERABLES Final Res ult [facility] [address] [place] [address], [place] * (ABNORMAL) Blood Gas, Arterial, STAT (04/23/2025 6:11 PM EDT) O2 Sat, Arterial 100 04/23/2025 6:20 PM EDT [facility] FIO2 40% 04/23/2025 6:20 PM EDT [facility] pH, Arterial 7.34(L) 7.35 - 7.45 04/23/2025 6:20 PM EDT [facility] pCO2, Arterial 44 35 - 45 mm Hg 04/23/2025 6:20 PM EDT [facility] pO2, Arterial 107(H) 80 - 100 mm Hg 04/23/2025 6:20 PM EDT [facility] HCO3, Arterial 23 22 - 26 mmol/L 04/23/2025 6:20 PM EDT [facility] CO2 Content,Arteri al 25 23 - 27 mmol/L 04/23/2025 6:20 PM EDT [facility] Base Excess, Arterial -2.1(L) -2.0 - 3.0 mmol/L 04/23/2025 6:20 PM EDT [facility] %HBO2, Arterial 96.3 95.0 - 98.0 % 04/23/2025 6:20 PM EDT [facility] Carboxyhemoglo bin, Arterial 2.4 % 04/23/2025 6:20 PM EDT [facility] Comment: CARBOXYHEMOGLOBIN (CO) REFERENCE RANGES: Non-Smokers: <2 % Smokers: <8 % TOXIC: >20 % Methemoglobin, Arterial 0.8 0.0 - 1.5 % 04/23/2025 6:20 PM EDT [facility] Blood, Arterial 04/23/2025 6 :11 PM EDT 04/23/2025 6:17 PM EDT us Judith Murcia MD LAB BLOOD ORDERABLES Final Res ult [facility] [address] [place] [address], [place] * TEG-Bypass/ECMO/Liver HN (Factor function, Platelet/Fibrin Clot Strength w/Clot Breakdown, Heparinase In All Channels) (04/23/2025 6:11 PM EDT) [facility] Citrated Kaolin Reaction Time (TEGECMOLIVER) 7.4 4.6 - 9.1 minutes 04/23/2025 7:55 PM EDT [facility] Citrated Kaolin W/Heparinase Reaction Time (TEGECMOLIVER) 6.1 4.3 - 8.3 minutes 04/23/2025 7:55 PM EDT [facility] Citrated Kaolin Maximum Amplitude (TEGECMOLIVER) 55.1 52.0 - 69.0 mm 04/23/2025 7:55 PM EDT [facility] Citrated Functional Fibrinogen W/Heparinase Maximum Amplitude(TEGEC MOLIVER) 18.1 15.0 - 34.0 mm 04/23/2025 7:55 PM EDT [facility] Citrated Rapid Teg W/Heparinase Maximum Amplitude (TEGECMOLIVER) 54.3 53.0 - 69.0 mm 04/23/2025 7:55 PM EDT [facility] Citrated Kaolin w/Heparinase Percent Lysis (TEGECMOLIVER) 0.0 0.0 - 3.2 % 04/23/2025 7:55 PM EDT [facility] Whole Blood (Citrate) 04/23/2025 6:11 PM EDT 04/23/2025 6:17 PM EDT Julius Becerra MD LAB BLOOD ORDERABLES Final Resul t [facility] [address] [facility]. [address] * Magnesium (04/23/2025 6:11 PM EDT) Magnesium 2.3 1.5 - 2.5 mg/dL 04/23/2025 6:52 PM EDT [facility] Plasma 04/23/2025 6:11 PM EDT 04/23/2025 6:17 PM EDT Gloria Chen MD LAB BLOOD ORDERABLES Final Resul t Performing Organization Address [facility] Co de Phone Number [facility] [address] [facility]. [address] * (ABNORMAL) Renal Function Panel w/EGFR (04/23/2025 6:11 PM EDT) Sodium 138 133 - 146 mmol/L 04/23/2025 6:52 PM EDT [facility] Potassium 5.4(H) 3.5 - 5.3 mmol/L 04/23/2025 6:52 PM EDT [facility] Chloride 107 98 - 110 mmol/L 04/23/2025 6:52 PM EDT [facility] CO2 24 21 - 33 mmol/L 04/23/2025 6:52 PM EDT [facility] Comment:High lactate dehydro genase concentrations in patient samples may cause falsely increased bicarbonate results. If markedly elevated LDH is observed or suspected, please assess results in conjunction with patient`s clinical presentation. In cases of discrepant results, consider evaluating CO2 in with a blood gas order. Anion Gap 7 3 - 16 mmol/L 04/23/2025 6:52 PM EDT [facility] BUN 35(H) 7 - 25 mg/dL 04/23/2025 6:52 PM EDT [facility] Creatinine 1.11 0.60 - 1.30 mg/dL 04/23/2025 6:52 PM EDT [facility] Glucose 154(H) 70 - 100 mg/dL 04/23/2025 6:52 PM EDT [facility] Calcium 7.9(L) 8.6 - 10.3 mg/dL 04/23/2025 6:52 PM EDT [facility] Phosphorus 5.3(H) 2.1 - 4.7 mg/dL 04/23/2025 6:52 PM EDT [facility] Albumin 2.5(L) 3.5 - 5.7 g/dL 04/23/2025 6:52 PM EDT [facility] Osmolality, Calculated 297 278 - 305 mOsm/kg 04/23/2025 6:52 PM EDT [facility] EGFR 66 04/23/2025 6:52 PM EDT [facility] Comment:As of 2021, the estimated [...] MD LAB BLOOD ORDERABLES Final Resul t [facility] [address] [place] [address], [place] * (ABNORMAL) CBC (04/23/2025 6:11 PM EDT) WBC 9.1 3.8 - 10.8 10E3/uL 04/23/2025 6:26 PM EDT [facility] RBC 3.66(L) 3.80 - 5.10 10E6/uL 04/23/2025 6:26 PM EDT [facility] Hemoglobin 11.1(L) 11.7 - 15.5 g/dL 04/23/2025 6:26 PM EDT [facility] Hematocrit 31.4(L) 35.0 - 45.0 % 04/23/2025 6:26 PM EDT [facility] MCV 85.7 80.0 - 100.0 fL 04/23/2025 6:26 PM EDT [facility] MCH 30.4 27.0 - 33.0 pg 04/23/2025 6:26 PM EDT [facility] MCHC 35.5 32.0 - 36.0 g/dL 04/23/2025 6:26 PM EDT [facility] RDW 16.4(H) 11.0 - 15.0 % 04/23/2025 6:26 PM EDT [facility] Platelets 63(L) 140 - 400 10E3/uL 04/23/2025 6:26 PM EDT [facility] MPV 9.3 7.5 - 11.5 fL 04/23/2025 6:26 PM EDT [facility] Whole Blood 04/23/2025 6:11 PM EDT 04/23/2025 6:17 PM EDT us Julius Becerra MD LAB BLOOD ORDERABLES Final Resul t [facility] [address] * (ABNORMAL) POC Glucose Monitoring Device (04/23/2025 6:09 PM EDT) POC Glucose Monitoring Device 145(H) 70 - 100 mg/dL 04/23/2025 6:11 PM EDT [facility] Blood 04/23/2025 6:09 PM EDT 04/23/2025 6:11 PM EDT Ludin Jose MD POINT OF CARE TEST ORDERABLES Fi nal Result [facility] [address] [place] [address], [place] * US Duplex Xjv-Hyz-Lekehze Comp (04/23/2025 2:12 PM EDT) Anatomical Region [...] EXAM: US ABDOMEN LIMITED EXAM: US DUPLEX [id number] COMPLETE INDICATION: Liver Transplant COMPARISON: None TECHNIQUE: [...] EXAM: US ABDOMEN LIMITED EXAM: US DUPLEX [id number] COMPLETE INDICATION: Liver Transplant COMPARISON: None TECHNIQUE: [...] EXAM: US ABDOMEN LIMITED EXAM: US DUPLEX [id number] COMPLETE INDICATION: Liver Transplant COMPARISON: None TECHNIQUE: [...] EXAM: US ABDOMEN LIMITED EXAM: US DUPLEX [id number] COMPLETE INDICATION: Liver Transplant COMPARISON: None TECHNIQUE: [...] 04/23/2025 2:30 PM EDT Giovanny Louis MD [facility] [place] ORDERABLES Final Result * (ABNORMAL) Protime-INR, STAT (04/23/2025 1:44 PM EDT) Protime 15.5(H) 12.1 - 15.1 seconds 04/23/2025 2:16 PM EDT [facility] INR 1.2(H) 0.9 - 1.1 04/23/2025 2:16 PM EDT [facility] Comment: RECOMMENDED THERAPEUTIC RANGES USING INR : Stable oral anticoagulant therapy: 2.0 - 3.0 Mechanical prosthetic heart valve: 2.5 - 3.5 Recurrent acute myocardial infarction: 2.5 - 3.5 Plasma 04/23/2025 1:44 PM EDT 04/23/2025 1:53 PM EDT us Judith Murcia MD LAB BLOOD ORDERABLES Final Res ult [facility] [address] [place] [id number], [place] * (ABNORMAL) Blood Gas, Arterial, STAT (04/23/2025 1:44 PM EDT) O2 Sat, Arterial 98 04/23/2025 1:56 PM EDT [facility] FIO2 40 04/23/2025 1:56 PM EDT [facility] pH, Arterial 7.33(L) 7.35 - 7.45 04/23/2025 1:56 PM EDT [facility] pCO2, Arterial 42 35 - 45 mm Hg 04/23/2025 1:56 PM EDT [facility] pO2, Arterial 88 80 - 100 mm Hg 04/23/2025 1:56 PM EDT [facility] HCO3, Arterial 22 22 - 26 mmol/L 04/23/2025 1:56 PM EDT [facility] CO2 Content,Arteri al 23 23 - 27 mmol/L 04/23/2025 1:56 PM EDT [facility] Base Excess, Arterial -3.7(L) -2.0 - 3.0 mmol/L 04/23/2025 1:56 PM EDT [facility] %HBO2, Arterial 94.7(L) 95.0 - 98.0 % 04/23/2025 1:56 PM EDT [facility] Carboxyhemoglo bin, Arterial 2.2 % 04/23/2025 1:56 PM EDT [facility] Comment: CARBOXYHEMOGLOBIN (CO) REFERENCE RANGES: Non-Smokers: <2 % Smokers: <8 % TOXIC: >20 % Methemoglobin, Arterial 1.2 0.0 - 1.5 % 04/23/2025 1:56 PM EDT [facility] Blood, Arterial 04/23/2025 1 :44 PM EDT 04/23/2025 1:51 PM EDT Judith Murcia MD LAB BLOOD ORDERABLES Final Res ult Performing Organization Address City/[facility]/ZIP Co de Phone Number [facility] [address] [place] [address], [place] * Transfuse RBC Transfusion Rate: Per dept routine (04/23/2025 1:11 PM EDT) Moe Luis MD NURSING TREATMENT ORDE RABLES - BLOOD ADMIN Final Result Performing Organization Address City/[facility] Co de Phone Number EXTERNAL * Transfuse RBC Transfusion Rate: Per dept routine, 2 Units (04/23/2025 1:11 PM EDT) us Moe Luis MD NURSING TREATM ENT ORDERABLES - BLOOD ADMIN Edited Result - Final Performing Organization Address [facility] Co de Phone Number EXTERNAL * X-ray Portable [...] Chavarria DO at 04/23/2025 1:32 PM EDT Judith Murcia MD [facility] DIAGNOSTIC IMAGING ORDERAB LES Final Result * (ABNORMAL) Renal Function Panel w/EGFR (04/23/2025 11:46 AM EDT) Sodium 138 133 - 146 mmol/L 04/23/2025 12:54 PM EDT [facility] Potassium 5.1 3.5 - 5.3 mmol/L 04/23/2025 12:54 PM EDT [facility] Chloride 107 98 - 110 mmol/L 04/23/2025 12:54 PM EDT [facility] CO2 24 21 - 33 mmol/L 04/23/2025 12:54 PM EDT [facility] Comment:High lactate dehydro genase concentrations in patient samples may cause falsely increased bicarbonate results. If markedly elevated LDH is observed or suspected, please assess results in conjunction with patient`s clinical presentation. In cases of discrepant results, consider evaluating CO2 in with a blood gas order. Anion Gap 7 3 - 16 mmol/L 04/23/2025 12:54 PM EDT [facility] BUN 31(H) 7 - 25 mg/dL 04/23/2025 12:54 PM EDT [facility] Creatinine 0.95 0.60 - 1.30 mg/dL 04/23/2025 12:54 PM EDT [facility] Glucose 159(H) 70 - 100 mg/dL 04/23/2025 12:54 PM EDT [facility] Calcium 8.4(L) 8.6 - 10.3 mg/dL 04/23/2025 12:54 PM EDT [facility] Phosphorus 5.0(H) 2.1 - 4.7 mg/dL 04/23/2025 12:54 PM EDT [facility] Albumin 2.3(L) 3.5 - 5.7 g/dL 04/23/2025 12:54 PM EDT [facility] Osmolality, Calculated 296 278 - 305 mOsm/kg 04/23/2025 12:54 PM EDT [facility] EGFR 80 04/23/2025 12:54 PM EDT [facility] Comment:As of 2021, the estimated [...] MD LAB BLOOD ORDERABLES Final Resul t [facility] [address] [facility] [place] [address], [place] * (ABNORMAL) TEG-Bypass/ECMO/Liver HN (Factor function, Platelet/Fibrin Clot Strength w/Clot Breakdown, Heparinase In All Channels) (04/23/2025 11:46 AM EDT) Citrated Kaolin Reaction Time (TEGECMOLIVER) 7.3 4.6 - 9.1 minutes 04/23/2025 1:06 PM EDT [facility] Citrated Kaolin W/Heparinase Reaction Time (TEGECMOLIVER) 4.7 4.3 - 8.3 minutes 04/23/2025 1:06 PM EDT [facility] Citrated Kaolin Maximum Amplitude (TEGECMOLIVER) 51.3(L) 52.0 - 69.0 mm 04/23/2025 1:06 PM EDT [facility] Citrated Functional Fibrinogen W/Heparinase Maximum Amplitude(TEGEC MOLIVER) 17.2 15.0 - 34.0 mm 04/23/2025 1:06 PM EDT [facility] Citrated Rapid Teg W/Heparinase Maximum Amplitude (TEGECMOLIVER) 49.3(L) 53.0 - 69.0 mm 04/23/2025 1:06 PM EDT [facility] Citrated Kaolin w/Heparinase Percent Lysis (TEGECMOLIVER) 0.0 0.0 - 3.2 % 04/23/2025 1:06 PM EDT [facility] Whole Blood (Citrate) 04/23/2025 11:46 AM EDT 04/23/2025 11:51 AM EDT us Judith Murcia MD LAB BLOOD ORDERABLES Final Res ult [facility] [address] * (ABNORMAL) Free Calcium, Whole Blood (04/23/2025 11:46 AM EDT) Free Calcium, WB 5.49(H) 4.50 - 5.30 mg/dL 04/23/2025 11:57 AM EDT [facility] Blood, Arterial 04/23/2025 1 1:46 AM EDT 04/23/2025 11:54 AM EDT Judith Murcia MD LAB BLOOD ORDERABLES Final Res ult [facility] [address] [place] [address], [place] * (ABNORMAL) Blood Gas, Arterial, STAT (04/23/2025 11:46 AM EDT) O2 Sat, Arterial 99 04/23/2025 11:54 AM EDT [facility] FIO2 50% 04/23/2025 11:54 AM EDT [facility] pH, Arterial 7.31(L) 7.35 - 7.45 04/23/2025 11:54 AM EDT [facility] pCO2, Arterial 46(H) 35 - 45 mm Hg 04/23/2025 11:54 AM EDT [facility] pO2, Arterial 158(H) 80 - 100 mm Hg 04/23/2025 11:54 AM EDT [facility] HCO3, Arterial 23 22 - 26 mmol/L 04/23/2025 11:54 AM EDT [facility] CO2 Content,Arteri al 25 23 - 27 mmol/L 04/23/2025 11:54 AM EDT [facility] Base Excess, Arterial -3.1(L) -2.0 - 3.0 mmol/L 04/23/2025 11:54 AM EDT [facility] %HBO2, Arterial 98.1(H) 95.0 - 98.0 % 04/23/2025 11:54 AM EDT [facility] Carboxyhemoglo bin, Arterial 1.2 % 04/23/2025 11:54 AM EDT [facility] Comment: CARBOXYHEMOGLOBIN (CO) REFERENCE RANGES: Non-Smokers: <2 % Smokers: <8 % TOXIC: >20 % Methemoglobin, Arterial 0.0 0.0 - 1.5 % 04/23/2025 11:54 AM EDT [facility] Blood, Arterial 04/23/2025 1 1:46 AM EDT 04/23/2025 11:51 AM EDT us Judith Murcia MD LAB BLOOD ORDERABLES Final Res ult [facility] [address] * Magnesium (04/23/2025 11:46 AM EDT) Magnesium 2.3 1.5 - 2.5 mg/dL 04/23/2025 12:54 PM EDT [facility] Plasma 04/23/2025 11:4 6 AM EDT 04/23/2025 12:02 PM EDT Gloria Chen MD LAB BLOOD ORDERABLES Final Resul t Performing Organization Address City/[facility]/ZIP Co de Phone Number [facility] [address] * (ABNORMAL) Protime-INR (04/23/2025 11:30 AM EDT) Protime 16.2(H) 12.1 - 15.1 seconds 04/23/2025 12:02 PM EDT [facility] INR 1.2(H) 0.9 - 1.1 04/23/2025 12:02 PM EDT [facility] Comment: RECOMMENDED THERAPEUTIC RANGES USING INR : Stable oral anticoagulant therapy: 2.0 - 3.0 Mechanical prosthetic heart valve: 2.5 - 3.5 Recurrent acute myocardial infarction: 2.5 - 3.5 Plasma 04/23/2025 11:3 0 AM EDT 04/23/2025 11:43 AM EDT Jostin Hess MD LAB BLOOD ORDERABLES Final Result [facility] [address] * Lactic Acid (04/23/2025 11:30 AM EDT) Lactate 1.0 0.5 - 2.2 mmol/L 04/23/2025 12:09 PM EDT [facility] Plasma 04/23/2025 11:3 0 AM EDT 04/23/2025 11:43 AM EDT us Jostin Hess MD LAB BLOOD ORDERABLES Final Result [facility] [address] * (ABNORMAL) Hepatic Function Panel (04/23/2025 11:30 AM EDT) Total Bilirubin 2.7(H) 0.0 - 1.5 mg/dL 04/23/2025 12:22 PM EDT [facility] Bilirubin, Direct 2.09(H) 0.00 - 0.40 mg/dL 04/23/2025 12:22 PM EDT [facility] AST 65(H) 13 - 39 U/L 04/23/2025 12:22 PM EDT [facility] ALT 78(H) 7 - 52 U/L 04/23/2025 12:22 PM EDT [facility] Alkaline Phosphatase 55 36 - 125 U/L 04/23/2025 12:22 PM EDT [facility] Total Protein 3.6(L) 6.4 - 8.9 g/dL 04/23/2025 12:22 PM EDT [facility] Albumin 2.3(L) 3.5 - 5.7 g/dL 04/23/2025 12:22 PM EDT [facility] Bilirubin, Indirect 0.61 0.00 - 1.10 mg/dL 04/23/2025 12:22 PM EDT [facility] Plasma 04/23/2025 11:3 0 AM EDT 04/23/2025 11:43 AM EDT us Jostin Hess MD LAB BLOOD ORDERABLES Final Result [facility] [address] * (ABNORMAL) CBC (04/23/2025 11:30 AM EDT) WBC 5.0 3.8 - 10.8 10E3/uL 04/23/2025 1:02 PM EDT [facility] RBC 3.55(L) 3.80 - 5.10 10E6/uL 04/23/2025 1:02 PM EDT [facility] Hemoglobin 10.7(L) 11.7 - 15.5 g/dL 04/23/2025 1:02 PM EDT [facility] Hematocrit 30.5(L) 35.0 - 45.0 % 04/23/2025 1:02 PM EDT [facility] MCV 86.0 80.0 - 100.0 fL 04/23/2025 1:02 PM EDT [facility] MCH 30.2 27.0 - 33.0 pg 04/23/2025 1:02 PM EDT [facility] MCHC 35.1 32.0 - 36.0 g/dL 04/23/2025 1:02 PM EDT [facility] RDW 16.5(H) 11.0 - 15.0 % 04/23/2025 1:02 PM EDT [facility] Platelets 47(L) 140 - 400 10E3/uL 04/23/2025 1:02 PM EDT [facility] Comment:CNV MPV 9.2 7.5 - 11.5 fL 04/23/2025 1:02 PM EDT [facility] Whole Blood 04/23/2025 11:3 0 AM EDT 04/23/2025 12:02 PM EDT us Jostin Hess MD LAB BLOOD ORDERABLES Final Result Performing Organization Address City/State/[facility] Co de Phone Number [facility] [address] * (ABNORMAL) Renal Function Panel w/EGFR (04/23/2025 11:30 AM EDT) Sodium 137 133 - 146 mmol/L 04/23/2025 12:22 PM EDT [facility] Potassium 5.1 3.5 - 5.3 mmol/L 04/23/2025 12:22 PM EDT [facility] Chloride 106 98 - 110 mmol/L 04/23/2025 12:22 PM EDT [facility] CO2 26 21 - 33 mmol/L 04/23/2025 12:22 PM EDT [facility] Comment:High lactate dehydro genase concentrations in patient samples may cause falsely increased bicarbonate results. If markedly elevated LDH is observed or suspected, please assess results in conjunction with patient`s clinical presentation. In cases of discrepant results, consider evaluating CO2 in with a blood gas order. Anion Gap 5 3 - 16 mmol/L 04/23/2025 12:22 PM EDT [facility] BUN 30(H) 7 - 25 mg/dL 04/23/2025 12:22 PM EDT [facility] Creatinine 0.99 0.60 - 1.30 mg/dL 04/23/2025 12:22 PM EDT [facility] Glucose 159(H) 70 - 100 mg/dL 04/23/2025 12:22 PM EDT [facility] Calcium 8.8 8.6 - 10.3 mg/dL 04/23/2025 12:22 PM EDT [facility] Phosphorus 5.0(H) 2.1 - 4.7 mg/dL 04/23/2025 12:22 PM EDT [facility] Albumin 2.3(L) 3.5 - 5.7 g/dL 04/23/2025 12:22 PM EDT [facility] Osmolality, Calculated 294 278 - 305 mOsm/kg 04/23/2025 12:22 PM EDT [facility] EGFR 76 04/23/2025 12:22 PM EDT [facility] Comment:As of 2021, the estimated [...] BLOOD ORDERABLES Final Result Performing Organization Address [facility] Co de Phone Number [facility] [address] [place] [address]. [address] * Magnesium (04/23/2025 11:30 AM EDT) Magnesium 2.4 1.5 - 2.5 mg/dL 04/23/2025 12:22 PM EDT [facility] Plasma 04/23/2025 11:3 0 AM EDT 04/23/2025 11:43 AM EDT Jostin Hess MD LAB BLOOD ORDERABLES Final Result Performing Organization Address [facility] de Phone Number [address] * (ABNORMAL) POC Glucose Monitoring Device (04/23/2025 11:29 AM EDT) [facility] POC Glucose Monitoring Device 159(H) 70 - 100 mg/dL 04/23/2025 11:30 AM EDT [facility] Blood 04/23/2025 11:2 9 AM EDT 04/23/2025 11:30 AM EDT Ludin Jose MD POINT OF CARE TEST ORDERABLES Fi nal Result Performing Organization Address [facility] Co de Phone Number [facility] [address] [place] [address]. [address] * Prepare Fresh Frozen Plasma, 4 Units (04/23/2025 11:13 AM EDT) Product Code H8232K29 [facility] Unit Number [id number] HCLL Dispense Status Released from Crossmatch_RE HCLL Blood Expiration Date [id number] HCLL Coding System [id number] HCLL Product Code Z1577B09 [facility]LL Unit Number [id number] HCLL Dispense Status Released from Crossmatch_RE HCLL Blood Expiration Date HCLL Coding System PLQO681 HCLL Product Code F9089M12 [facility]LL Unit Number [id number] HCLL Dispense Status Released from Crossmatch_RE HCLL Blood Expiration Date HCLL Coding System HGYL867 HCLL Product Code S5135N76 [facility]LL Unit Number [id number] HCLL Dispense Status Released from Crossmatch_RE HCLL Blood Expiration Date HCLL Coding System KRRV472 HCLL Product Code N7029S90 HCLL Unit Number [id number] HCLL Dispense Status Released from Crossmatch_RE HCLL Blood Expiration Date HCLL Coding System GLXD473 HCLL Product Code E3293J85 HCLL Unit Number [id number] HCLL Dispense Status Released from Crossmatch_RE HCLL Blood Expiration Date HCLL Coding System FDDT830 HCLL Blood Bank Product us Catracho Hui MD BLOOD BANK PRODUCT ORDERAB LES Final Result [facility] * Transfuse RBC Transfusion Rate: Per dept routine (04/23/2025 10:50 AM EDT) us Gloria Chen MD NURSING TREATMENT ORDERABLES - B LOOD ADMIN Final Result EXTERNAL * Routine Culture plus Stain (Surgical Swab) (04/23/2025 9:53 AM EDT) Gram Stain Result Rare Polymorphonuclear Leukocytes Seen [facility] Gram Stain Result No Organisms Seen; [facility] Culture Result No Growth After 3 Days [facility] Swab (specimen) ABDOMEN / Unknown 025 9:53 AM EDT Comment:Ascities fluid swab Narrative [facility] - 04/26/2025 8:57 AM EST Ascities fluid swab Ascities fluid swab 1 us Alej[employer] MD MICROBIOLOGY - GENERAL ORDER RANDALL Final Result [facility] [address]. [address] * Fungus culture (Surgical Swab) (04/23/2025 9:53 AM EDT) Culture Result No Fungus Isolated At 4 Weeks [facility] Swab (specimen) ABDOMEN / Unknown 025 9:53 AM EDT Comment:Ascities fluid swab Narrative [facility] - 05/23/2025 8:20 AM EST Ascities fluid swab Ascities fluid swab 1 Alejandra Wilson MD MICROBIOLOGY - GENERAL ORDER RANDALL Final Result Performing Organization Address City/[facility] Co de Phone Number [facility] [address] [facility]. [address] * Anaerobic culture (Surgical Swab) (04/23/2025 9:53 AM EDT) Culture Result No Anaerobes Isolated in 5 Days [facility] Swab (specimen) ABDOMEN / Unknown 025 9:53 AM EDT Comment:Ascities fluid swab Narrative [facility] - 04/28/2025 12:31 PM EST Ascities fluid swab Ascities fluid swab 1 Alejandra Wilson MD MICROBIOLOGY - GENERAL ORDER RANDALL Final Result Performing Organization Address City/[facility]/ZIP Co de Phone Number [facility] [address]. [address] * TEG-Bypass/ECMO/Liver HN (Factor function, Platelet/Fibrin Clot Strength w/Clot Breakdown, Heparinase In All Channels) (04/23/2025 9:37 AM EDT) Citrated Kaolin Reaction Time (TEGECMOLIVER) 5.6 4.6 - 9.1 minutes 04/23/2025 10:51 AM EDT [facility] Citrated Kaolin W/Heparinase Reaction Time (TEGECMOLIVER) 4.7 4.3 - 8.3 minutes 04/23/2025 10:51 AM EDT [facility] Citrated Kaolin Maximum Amplitude (TEGECMOLIVER) 58.2 52.0 - 69.0 mm 04/23/2025 10:51 AM EDT [facility] Citrated Functional Fibrinogen W/Heparinase Maximum Amplitude(TEGEC MOLIVER) 18.0 15.0 - 34.0 mm 04/23/2025 10:51 AM EDT [facility] Citrated Rapid Teg W/Heparinase Maximum Amplitude (TEGECMOLIVER) 54.9 53.0 - 69.0 mm 04/23/2025 10:51 AM EDT [facility] Citrated Kaolin w/Heparinase Percent Lysis (TEGECMOLIVER) 0.0 0.0 - 3.2 % 04/23/2025 10:51 AM EDT [facility] Whole Blood (Citrate) 04/23/2025 9:37 AM EDT 04/23/2025 9:46 AM EDT us Catracho Hui MD LAB BLOOD ORDERABLES Final Result [facility] [address] * (ABNORMAL) Arterial Blood Gas Panel (04/23/2025 9:37 AM EDT) O2Sat (ABGP) 99 04/23/2025 9:50 AM EDT [facility] pH (ABGP) 7.34(L) 7.35 - 7.45 04/23/2025 9:50 AM EDT [facility] PCO2 (ABGP) 43 35 - 45 mm Hg 04/23/2025 9:50 AM EDT [facility] PO2 (ABGP) 179(H) 80 - 100 mm Hg 04/23/2025 9:50 AM EDT [facility] HCO3 (ABGP) 23 22 - 26 mmol/L 04/23/2025 9:50 AM EDT [facility] CO2 Content (ABGP) 25 23 - 27 mmol/L 04/23/2025 9:50 AM EDT [facility] Base Excess (ABGP) -2.5(L) -2.0 - 3.0 mmol/L 04/23/2025 9:50 AM EDT [facility] Sodium (ABGP) 133(L) 136 - 146 mEq/L 04/23/2025 9:50 AM EDT [facility] Potassium (ABGP) 5.1(H) 3.5 - 5.0 mEq/L 04/23/2025 9:50 AM EDT [facility] Comment:In the event of in-v itro hemolysis, potassium results may be falsely elevated. Always interpret lab results in conjunction with clinical findings. If hemolysis is suspected, a serum sample may be collected for repeat assessment of potassium. Calcium, Free (ABGP) 4.56 4.50 - 5.30 mg/dL 04/23/2025 9:50 AM [facility] Glucose (ABGP) 157(H) 70 - 100 mg/dL 04/23/2025 9:50 AM [facility] Comment:There is interferenc e with whole blood glucose results on this method when Hematocrit is <25% or >60%. HCT (ABGP) 27.0(L) 35.0 - 45.0 % 04/23/2025 9:50 AM [facility] HGB (ABGP) 9.0(L) 12.0 - 16.0 g/dL 04/23/2025 9:50 AM [facility] %HBO2 (ABGP) 97.8 95.0 - 98.0 % 04/23/2025 9:[facility] Carboxyhgb (ABGP) 1.4 % 9:50 AM [facility] Comment: CARBOXYHEMOGLOBIN (CO) REFERENCE RANGES: Non-Smokers: <2 % Smokers: <8 % TOXIC: >20 % Methemoglobin (ABGP) 0.0 0.0 - 1.5 % 04/23/2025 9:50 AM [facility] Lactic Acid (ABGP) 1.7(H) 0.5 - 1.6 mmol/L 04/23/2025 9:50 AM [facility] Blood, Arterial 04/23/2025 9 :37 AM EDT 04/23/2025 9:46 AM EDT us Catracho Hui MD LAB BLOOD ORDERABLES Final Result [facility] [address] [place] [address], [place] * Transfuse RBC Transfusion Rate: Per dept routine (04/23/2025 9:02 AM EDT) us Moe Luis MD NURSING TREATMENT ORDE BRITANY - BLOOD ADMIN Final Result EXTERNAL * [...] In All Channels) (04/23/2025 8:31 AM EDT) Pathologist [facility] Citrated Kaolin Reaction Time (TEGECMOLIVER) 6.4 4.6 - 9.1 minutes 04/23/2025 9:39 AM EDT [facility] Citrated Kaolin W/Heparinase Reaction Time (TEGECMOLIVER) 5.5 4.3 - 8.3 minutes 04/23/2025 9:39 AM EDT [facility] Citrated Kaolin Maximum Amplitude (TEGECMOLIVER) 63.3 52.0 - 69.0 mm 04/23/2025 9:39 AM EDT [facility] Citrated Functional Fibrinogen W/Heparinase Maximum Amplitude(TEGEC MOLIVER) 20.8 15.0 - 34.0 mm 04/23/2025 9:39 AM EDT [facility] Citrated Rapid Teg W/Heparinase Maximum Amplitude (TEGECMOLIVER) 60.0 53.0 - 69.0 mm 04/23/2025 9:39 AM EDT [facility] Citrated Kaolin w/Heparinase Percent Lysis (TEGECMOLIVER) 0.0 0.0 - 3.2 % 04/23/2025 9:39 AM EDT [facility] Whole Blood (Citrate) 04/23/2025 8:31 AM EDT 04/23/2025 8:34 AM EDT us Julius Becerra MD LAB BLOOD ORDERABLES Final Resul t [facility] [address] [facility] [place] [address], [place] * (ABNORMAL) CBC (04/23/2025 8:31 AM EDT) Pathologist [facility] WBC 6.6 3.8 - 10.8 10E3/uL 04/23/2025 9:22 AM EDT [facility] RBC 2.22(L) 3.80 - 5.10 10E6/uL 04/23/2025 9:22 AM EDT [facility] Hemoglobin 6.7(L) 11.7 - 15.5 g/dL 04/23/2025 9:22 AM EDT [facility] Hematocrit 18.5(L) 35.0 - 45.0 % 04/23/2025 9:22 AM EDT [facility] MCV 83.4 80.0 - 100.0 fL 04/23/2025 9:22 AM EDT [facility] MCH 30.1 27.0 - 33.0 pg 04/23/2025 9:22 AM EDT [facility] MCHC 36.1(H) 32.0 - 36.0 g/dL 04/23/2025 9:22 AM EDT [facility] RDW 16.7(H) 11.0 - 15.0 % 04/23/2025 9:22 AM EDT [facility] Platelets 85(L) 140 - 400 10E3/uL 04/23/2025 9:22 AM EDT [facility] MPV 9.3 7.5 - 11.5 fL 04/23/2025 9:22 AM EDT [facility] Whole Blood 04/23/2025 8:31 AM EDT 04/23/2025 8:50 AM EDT us Julius Becerra MD LAB BLOOD ORDERABLES Final Resul t [facility] [address] [address] * TEG-Bypass/ECMO/Liver HN (Factor function, Platelet/Fibrin Clot Strength w/Clot Breakdown, Heparinase In All Channels) (04/23/2025 7:45 AM EDT) Citrated Kaolin Reaction Time (TEGECMOLIVER) 5.6 4.6 - 9.1 minutes 04/23/2025 9:05 AM EDT [facility] Citrated Kaolin W/Heparinase Reaction Time (TEGECMOLIVER) 4.4 4.3 - 8.3 minutes 04/23/2025 9:05 AM EDT [facility] Citrated Kaolin Maximum Amplitude (TEGECMOLIVER) 63.6 52.0 - 69.0 mm 04/23/2025 9:05 AM EDT [facility] Citrated Functional Fibrinogen W/Heparinase Maximum Amplitude(TEGEC MOLIVER) 21.1 15.0 - 34.0 mm 04/23/2025 9:05 AM EDT [facility] Citrated Rapid Teg W/Heparinase Maximum Amplitude (TEGECMOLIVER) 61.0 53.0 - 69.0 mm 04/23/2025 9:05 AM EDT [facility] Citrated Kaolin w/Heparinase Percent Lysis (TEGECMOLIVER) 0.0 0.0 - 3.2 % 04/23/2025 9:05 AM EDT [facility] Whole Blood (Citrate) 04/23/2025 7:45 AM EDT 04/23/2025 7:55 AM EDT Julius Becerra MD LAB BLOOD ORDERABLES Final Resul t Performing Organization Address City/State/[facility] Co de Phone Number [facility] [address] * (ABNORMAL) Blood gas, arterial (04/23/2025 7:45 AM EDT) O2 Sat, Arterial 99 04/23/2025 8:00 AM EDT [facility] FIO2 60% 04/23/2025 8:00 AM EDT [facility] pH, Arterial 7.36 7.35 - 7.45 04/23/2025 8:00 AM EDT [facility] pCO2, Arterial 42 35 - 45 mm Hg 04/23/2025 8:00 AM EDT [facility] pO2, Arterial 119(H) 80 - 100 mm Hg 04/23/2025 8:00 AM EDT [facility] HCO3, Arterial 24 22 - 26 mmol/L 04/23/2025 8:00 AM EDT [facility] CO2 Content,Arteri al 25 23 - 27 mmol/L 04/23/2025 8:00 AM EDT [facility] Base Excess, Arterial -1.6 -2.0 - 3.0 mmol/L 04/23/2025 8:00 AM EDT [facility] %HBO2, Arterial 96.9 95.0 - 98.0 % 04/23/2025 8:00 AM EDT [facility] Carboxyhemoglo bin, Arterial 1.4 % 04/23/2025 8:00 AM EDT [facility] Comment: CARBOXYHEMOGLOBIN (CO) REFERENCE RANGES: Non-Smokers: <2 % Smokers: <8 % TOXIC: >20 % Methemoglobin, Arterial 0.6 0.0 - 1.5 % 04/23/2025 8:00 AM EDT [facility] Blood, Arterial 04/23/2025 7 :45 AM EDT 04/23/2025 7:55 AM EDT us Julius Becerra MD LAB BLOOD ORDERABLES Final Resul t Performing Organization Address City/[facility]/ZIP Co de Phone Number [facility] [address] [facility]. [address] * (ABNORMAL) Hemoglobin, Blood Gas (04/23/2025 7:45 AM EDT) Hgb, blood gas 6.6(L) 12.0 - 16.0 g/dL 04/23/2025 8:00 AM EDT [facility] Blood, Arterial 04/23/2025 7 :45 AM EDT 04/23/2025 7:55 AM EDT us Julius Becerra MD LAB BLOOD ORDERABLES Final Resul t [facility] [address] * Lactic acid, ABG (04/23/2025 7:45 AM EDT) Lactate, Art 1.6 0.5 - 1.6 mmol/L 04/23/2025 8:00 AM EDT [facility] Blood, Arterial 04/23/2025 7 :45 AM EDT 04/23/2025 7:55 AM EDT Julius Becerra MD LAB BLOOD ORDERABLES Final Resul t Performing Organization Address [facility] Co de Phone Number [facility] [address] * Tacrolimus level (04/23/2025 7:45 AM EDT) Tacrolimus (LC-MS) 9.3 3.0 - 15.0 ng/mL 04/23/2025 12:16 PM EDT [facility] Comment:Performed via liquid chromatography tandem mass spectrometry. Detection limit: 1 ng/mL. Individual target concentrations may vary due to target organ and time after transplant. This test has been developed and its performance characteristics determined by [facility] which is certified under the [...] 7:45 AM EDT 04/23/2025 7:58 AM EDT Gloria Chen MD LAB BLOOD ORDERABLES Final Resul t Performing Organization Address [facility] de Phone Number [facility] [address] * Transfuse RBC Transfusion Rate: Per dept routine (04/23/2025 7:31 AM EDT) Sergey Altman MD NURSING TREATMENT OR DERABLES - BLOOD ADMIN Final Result Performing Organization Address City/[facility]/ZIP Co de Phone Number EXTERNAL * Transfuse RBC Transfusion Rate: Per dept routine, 1 Units (04/23/2025 7:31 AM EDT) Sergey Altman MD NURSING TREATMENT OR DERABLES - BLOOD ADMIN Final Result Performing Organization Address [facility] Co de Phone Number EXTERNAL * SMALL BOWEL ENTEROSCOPY (04/23/2025 6:01 AM EDT) 04/23/2025 6:01 AM EDT Narrative [facility] - 04/23/2025 11:33 AM EDT [id number] Procedure Date: 04/23/2025 6:01 AM Patient Name: Mindy Wade Date of : 1990 Admit Type: Inpatient Age: 35 Gender: Female Note Status: Finalized Attending MD: Kelsey Moyer , , [id number] Procedure: Small bowel enteroscopy Indications: Melena Patient [...] by the physician, the nurse and the cable television line technician in the procedure room. Mental Status [...] the bleed. Procedure Code(s): --- Professional --- 37710, GC, Small intestinal endoscopy, enteroscopy beyond second portion of duodenum, not including ileum; diagnostic, including collection of specimen(s) by brushing or washing, when performed (separate procedure) Diagnosis Code(s): --- Professional --- K92.2, Gastrointestinal hemorrhage, unspecified K92.1, Melena (includes Hematochezia) CPT copyright 2022 [employer]. All rights reserved. The codes documented in this report are preliminary and upon licensed dispensing optician review may be revised to meet current compliance requirements. Attending Participation: I was present and participated during the entire procedure from insertion to removal of the endoscope. Kelsey Moyer Kelsey Moyer, 04/23/2025 11:32:48 AM Mike Ventura Mike Ventura, 04/23/2025 7:30:40 AM Total Procedure Duration Time 0 hours 51 minutes 31 seconds Scope In: 6:09:10 AM Scope Out: 7:00:[address] [place] [address], [facility] us Ludin Jose MD PROCEDURE/MINOR SURGICAL ORDERAB LES Final Result [facility] * Prepare RBC, leukoreduced (04/23/2025 5:36 AM EDT) Product Code [id number] [facility] Unit Number [id number] HCLL Dispense Status Released from Crossmatch_RE HCLL Blood Expiration Date HCLL Coding System FCVN672 HCLL Product Code V8990N72 HCLL Unit Number [id number] HCLL Dispense Status Released from Crossmatch_RE HCLL Blood Expiration Date HCLL Coding System APRT378 HCLL Product Code Y3769F06 HCLL Unit Number [id number] HCLL Dispense Status Released from Crossmatch_RE HCLL Blood Expiration Date HCLL Coding System UNAY209 HCLL Product Code N5196A18 HCLL Unit Number [id number] HCLL Dispense Status Released from Crossmatch_RE HCLL Blood Expiration Date HCLL Coding System SZQY785 HCLL Product Code W4704J27 HCLL Unit Number [id number] HCLL Dispense Status Released from Crossmatch_RE HCLL Blood Expiration Date HCLL Coding System ZLAK350 HCLL Product Code S8182G98 HCLL Unit Number [id number] HCLL Dispense Status Released from Crossmatch_RE HCLL Blood Expiration Date HCLL Coding System MESL513 HCLL us Attending Provider Unknown BLOOD BANK PRODUCT OR DERABLES Final Result HC[facility] * Prepare Fresh Frozen Plasma (04/23/2025 5:33 AM EDT) Product Code I5472K67 HCLL Unit Number [id number] HCLL Dispense Status Released from Crossmatch_RE HCLL Blood Expiration Date HCLL Coding System DXGQ502 HCLL Product Code W9727H44 HCLL Unit Number [id number] HCLL Dispense Status Released from Crossmatch_RE HCLL Blood Expiration Date HCLL Coding System FMCE129 HCLL Product Code B3185L94 HCLL Unit Number [id number] HCLL Dispense Status Released from Crossmatch_RE HCLL Blood Expiration Date HCLL Coding System CKIA382 HCLL Product Code R2631G50 HCLL Unit Number [id number] HCLL Dispense Status Released from Crossmatch_RE HCLL Blood Expiration Date HCLL Coding System SJUH921 HCLL Product Code H5299L26 HCLL Unit Number [id number] HCLL Dispense Status Released from Crossmatch_RE HCLL Blood Expiration Date HCLL Coding System MKCF374 HCLL Product Code N8506P08 HCLL Unit Number [id number] HCLL Dispense Status Released from Crossmatch_RE HCLL Blood Expiration Date HCLL Coding System [id number] HCLL us Attending Provider Unknown BLOOD BANK [...] Lang MD Consent: Consent obtained: Emergent situation [place] protocol: Patient identity confirmed: Hospital-assigned identification number [...] * Magnesium, STAT (04/23/2025 4:26 AM EDT) Pathologist [facility] Magnesium 2.4 1.5 - 2.5 mg/dL 04/23/2025 5:09 AM EDT [facility] [employer] [facility] Plasma 04/23/2025 4:26 AM EDT 04/23/2025 4:40 AM EDT Sergey Altman MD LAB BLOOD ORDERABLES Final Result [facility] [address] * (ABNORMAL) TEG-Bypass/ECMO/Liver HN (Factor function, Platelet/Fibrin Clot Strength w/Clot Breakdown, Heparinase In All Channels) (04/23/2025 4:26 AM EDT) Citrated Kaolin Reaction Time (TEGECMOLIVER) 6.3 4.6 - 9.1 minutes 04/23/2025 5:55 AM EDT [facility] Citrated Kaolin W/Heparinase Reaction Time (TEGECMOLIVER) 5.4 4.3 - 8.3 minutes 04/23/2025 5:55 AM EDT [facility] Citrated Kaolin Maximum Amplitude (TEGECMOLIVER) 48.6(L) 52.0 - 69.0 mm 04/23/2025 5:55 AM EDT [facility] Citrated Functional Fibrinogen W/Heparinase Maximum Amplitude(TEGEC MOLIVER) 11.0(L) 15.0 - 34.0 mm 04/23/2025 5:55 AM EDT [facility] Citrated Rapid Teg W/Heparinase Maximum Amplitude (TEGECMOLIVER) 45.5(L) 53.0 - 69.0 mm 04/23/2025 5:55 AM EDT [facility] Citrated Kaolin w/Heparinase Percent Lysis (TEGECMOLIVER) 0.0 0.0 - 3.2 % 04/23/2025 5:55 AM EDT [facility] Whole Blood (Citrate) 04/23/2025 4:26 AM EDT 04/23/2025 4:32 AM EDT us Sergey Altman MD LAB BLOOD ORDERABLES Final Result [facility] [address] * (ABNORMAL) CBC, STAT (04/23/2025 4:26 AM EDT) WBC 11.4(H) 3.8 - 10.8 10E3/uL 04/23/2025 4:50 AM EDT [facility] RBC 3.32(L) 3.80 - 5.10 10E6/uL 04/23/2025 4:50 AM EDT [facility] Hemoglobin 9.6(L) 11.7 - 15.5 g/dL 04/23/2025 4:50 AM EDT [facility] Hematocrit 28.4(L) 35.0 - 45.0 % 04/23/2025 4:50 AM EDT [facility] MCV 85.4 80.0 - 100.0 fL 04/23/2025 4:50 AM EDT [facility] MCH 28.9 27.0 - 33.0 pg 04/23/2025 4:50 AM EDT [facility] MCHC 33.9 32.0 - 36.0 g/dL 04/23/2025 4:50 AM EDT [facility] RDW 16.4(H) 11.0 - 15.0 % 04/23/2025 4:50 AM EDT [facility] Platelets 56(L) 140 - 400 10E3/uL 04/23/2025 4:50 AM EDT [facility] MPV 9.1 7.5 - 11.5 fL 04/23/2025 4:50 AM EDT [facility] Whole Blood 04/23/2025 4:26 AM EDT 04/23/2025 4:40 AM EDT Sergey Altman MD LAB BLOOD ORDERABLES Final Result [facility] [address], [place] [address] * Calcium Free, Serum (04/23/2025 4:26 AM EDT) Free Calcium, Ser 4.79 4.40 - 5.40 mg/dL 04/23/2025 5:05 AM EDT [facility] Comment:Free calcium levels vary inversely with pH by approximately 5% for each 0.1 unit of pH change. Assay results have been normalized to pH = 7.40. Serum 04/23/2025 4:26 AM EDT 04/23/2025 4:40 AM EDT Narrative [facility] - 04/23/2025 5:05 AM EDT This test has been developed and its performance characteristics determined by [facility] which is certified under the [...] BLOOD ORDERABLES Final Result Performing Organization Address [facility]/ZIP Co de Phone Number [facility] [address] [facility]. [address] * (ABNORMAL) Hepatic Function Panel, STAT (04/23/2025 4:26 AM EDT) Total Bilirubin 1.4 0.0 - 1.5 mg/dL 04/23/2025 5:09 AM EDT [facility] Bilirubin, Direct 0.92(H) 0.00 - 0.40 mg/dL 04/23/2025 5:09 AM EDT [facility] AST 59(H) 13 - 39 U/L 04/23/2025 5:09 AM EDT [facility] ALT 81(H) 7 - 52 U/L 04/23/2025 5:09 AM EDT [facility] Alkaline Phosphatase 63 36 - 125 U/L 04/23/2025 5:09 AM EDT [facility] Total Protein 3.4(L) 6.4 - 8.9 g/dL 04/23/2025 5:09 AM EDT [facility] Albumin 2.2(L) 3.5 - 5.7 g/dL 04/23/2025 5:09 AM EDT [facility] Bilirubin, Indirect 0.48 0.00 - 1.10 mg/dL 04/23/2025 5:09 AM EDT [facility] Plasma 04/23/2025 4:26 AM EDT 04/23/2025 4:40 AM EDT Sergey Altman MD LAB BLOOD ORDERABLES Final Result Performing Organization Address [facility]/ZIP Co de Phone Number [facility] [address] [facility]. [address] * (ABNORMAL) Renal Function Panel w/EGFR, STAT (04/23/2025 4:26 AM EDT) Sodium 137 133 - 146 mmol/L 04/23/2025 5:09 AM EDT [facility] Potassium 4.6 3.5 - 5.3 mmol/L 04/23/2025 5:09 AM EDT [facility] Chloride 109 98 - 110 mmol/L 04/23/2025 5:09 AM EDT [facility] CO2 23 21 - 33 mmol/L 04/23/2025 5:09 AM EDT [facility] Comment:High lactate dehydro genase concentrations in patient samples may cause falsely increased bicarbonate results. If markedly elevated LDH is observed or suspected, please assess results in conjunction with patient`s clinical presentation. In cases of discrepant results, consider evaluating CO2 in with a blood gas order. Anion Gap 5 3 - 16 mmol/L 04/23/2025 5:09 AM EDT [facility] BUN 39(H) 7 - 25 mg/dL 04/23/2025 5:09 AM EDT [facility] Creatinine 1.32(H) 0.60 - 1.30 mg/dL 04/23/2025 5:09 AM EDT [facility] Glucose 152(H) 70 - 100 mg/dL 04/23/2025 5:09 AM EDT [facility] Calcium 8.1(L) 8.6 - 10.3 mg/dL 04/23/2025 5:09 AM EDT [facility] Phosphorus 7.0(H) 2.1 - 4.7 mg/dL 04/23/2025 5:09 AM EDT [facility] Albumin 2.2(L) 3.5 - 5.7 g/dL 04/23/2025 5:09 AM EDT [facility] Osmolality, Calculated 296 278 - 305 mOsm/kg 04/23/2025 5:09 AM EDT [facility] EGFR 54 04/23/2025 5:09 AM EDT [facility] Comment:As of 2021, the estimated [...] Altman MD LAB BLOOD ORDERABLES Final Result [facility] [address] * Lactic Acid, STAT (04/23/2025 4:26 AM EDT) Lactate 1.3 0.5 - 2.2 mmol/L 04/23/2025 5:05 AM EDT [facility] Plasma 04/23/2025 4:26 AM EDT 04/23/2025 4:40 AM EDT Sergey Altman MD LAB BLOOD ORDERABLES Final Result Performing Organization Address [facility] Co de Phone Number [facility] [address] [facility]. [address] * (ABNORMAL) Sodium, Blood Gas (04/23/2025 4:26 AM EDT) Sodium, Blood Gas 131(L) 136 - 146 mEq/L 04/23/2025 4:37 AM EDT [facility] Blood, Arterial 04/23/2025 4 :26 AM EDT 04/23/2025 4:32 AM EDT Sergey Altman MD LAB BLOOD ORDERABLES Final Result [facility] [address] [facility]. [address] * Potassium, Blood Gas (04/23/2025 4:26 AM EDT) Potassium, Blood Gas 4.6 3.5 - 5.0 mEq/L 04/23/2025 4:37 AM EDT [facility] Comment:In the event of in-v itro hemolysis, potassium results may be falsely elevated. Always interpret lab results in conjunction with clinical findings. If hemolysis is suspected, a serum sample may be collected for repeat assessment of potassium. Blood, Arterial 04/23/2025 4 :26 AM EDT 04/23/2025 4:32 AM EDT Sergey Altman MD LAB BLOOD ORDERABLES Final Result [facility] [address] [facility]. [address] * Lactic acid, ABG (04/23/2025 4:26 AM EDT) Lactate, Art 1.3 0.5 - 1.6 mmol/L 04/23/2025 4:37 AM EDT [facility] Blood, Arterial 04/23/2025 4 :26 AM EDT 04/23/2025 4:32 AM EDT Sergey Altman MD LAB BLOOD ORDERABLES Final Result Performing Organization Address [facility] Co de Phone Number [facility] [address] [facility]. [address] * (ABNORMAL) Hemoglobin, Blood Gas (04/23/2025 4:26 AM EDT) Hgb, blood gas 9.9(L) 12.0 - 16.0 g/dL 04/23/2025 4:37 AM EDT [facility] Blood, Arterial 04/23/2025 4 :26 AM EDT 04/23/2025 4:32 AM EDT Sergey Altman MD LAB BLOOD ORDERABLES Final Result [facility] [address] [facility]. [address] * (ABNORMAL) Hematocrit, Blood Gas (04/23/2025 4:26 AM EDT) Hct, blood gas 30.0(L) 35.0 - 45.0 % 04/23/2025 4:37 AM EDT [facility] Blood, Arterial 04/23/2025 4 :26 AM EDT 04/23/2025 4:32 AM EDT Sergey Altman MD LAB BLOOD ORDERABLES Final Result Performing Organization Address City/[facility]/ZIP Co de Phone Number [facility] [address] [facility]. [address] * Calcium Ionized, Whole Blood (04/23/2025 4:26 AM EDT) Pathologist [facility] [place] Free Calcium, WB 5.15 4.50 - 5.30 mg/dL 04/23/2025 4:37 AM EDT [facility] Blood, Arterial 04/23/2025 4 :26 AM EDT 04/23/2025 4:32 AM EDT Sergey Altman MD LAB BLOOD ORDERABLES Final Result Performing Organization Address [facility] Co de Phone Number [facility] [address] [facility]. [address] * (ABNORMAL) Blood gas, arterial (04/23/2025 4:26 AM EDT) Pathologist [facility] [place] O2 Sat, Arterial 98 04/23/2025 4:38 AM EDT [facility] FIO2 60 04/23/2025 4:39 AM EDT [facility] pH, Arterial 7.14(LL) 7.35 - 7.45 04/23/2025 4:38 AM EDT [facility] Comment:Critical value was p reviously called. pCO2, Arterial 61(H) 35 - 45 mm Hg 04/23/2025 4:38 AM EDT [facility] pO2, Arterial 122(H) 80 - 100 mm Hg 04/23/2025 4:38 AM EDT [facility] HCO3, Arterial 19(L) 22 - 26 mmol/L 04/23/2025 4:38 AM EDT [facility] CO2 Content,Arteria l 23 23 - 27 mmol/L 04/23/2025 4:38 AM EDT [facility] Base Excess, Arterial -8.3(L) -2.0 - 3.0 mmol/L 04/23/2025 4:38 AM EDT [facility] %HBO2, Arterial 96.2 95.0 - 98.0 % 04/23/2025 4:38 AM EDT [facility] Carboxyhemoglob in, Arterial 1.3 % 04/23/2025 4:38 AM EDT [facility] Comment: CARBOXYHEMOGLOBIN (CO) REFERENCE RANGES: Non-Smokers: <2 % Smokers: <8 % TOXIC: >20 % Methemoglobin, Arterial 0.8 0.0 - 1.5 % 04/23/2025 4:38 AM EDT [facility] Blood, Arterial 04/23/2025 4 :26 AM EDT 04/23/2025 4:32 AM EDT Sergey Altman MD LAB BLOOD ORDERABLES Final Result Performing Organization Address City/[facility] Co de Phone Number [facility] [address] [facility]. [address] * (ABNORMAL) Protime-INR, AM (04/23/2025 4:26 AM EDT) Protime 18.1(H) 12.1 - 15.1 seconds 04/23/2025 4:57 AM EDT [facility] INR 1.4(H) 0.9 - 1.1 04/23/2025 4:57 AM EDT [facility] Comment: RECOMMENDED THERAPEUTIC RANGES USING INR : Stable oral anticoagulant therapy: 2.0 - 3.0 Mechanical prosthetic heart valve: 2.5 - 3.5 Recurrent acute myocardial infarction: 2.5 - 3.5 Plasma 04/23/2025 4:26 AM EDT 04/23/2025 4:35 AM EDT Sergey Altman MD LAB BLOOD ORDERABLES Final Result [facility] [address] [place] [address] * INTUBATION (04/23/2025 3:44 AM EDT) Narrative Manuela Lang MD - 04/23/2025 3:44 AM EDT Manuela Lang MD 04/23/2025 4:44 AM Intubation Date/Time: 04/23/2025 3:44 AM Performed by: Drea Campbell MD Authorized by: Manuela Lang MD Consent: Consent obtained: Emergent situation Alternatives discussed: No treatment and delayed treatment [place] protocol: Patient identity confirmed: Hospital-assigned identification number [...] Procedure completion: Tolerated well, no immediate complications Manuela Lang MD PROCEDURE/MINOR SURGICAL ORDERAB LES [...] - 5.30 mg/dL 04/23/2025 3:03 AM EDT [facility] Blood, Arterial 04/23/2025 2 :54 AM EDT 04/23/2025 2:57 AM EDT Ludin Jose MD LAB BLOOD ORDERABLES Final Resul t [facility] [address] [place] [address], [place] * (ABNORMAL) Arterial Blood Gas Panel (04/23/2025 2:54 AM EDT) O2Sat (ABGP) 100 04/23/2025 3:18 AM EDT [facility] FIO2 (ABGP) 100 04/23/2025 3:18 AM EDT [facility] pH (ABGP) 7.05(LL) 7.35 - 7.45 04/23/2025 3:18 AM EDT [facility] Comment: The critical result was called to, and read back by, licensed caregiver konstantin pineda PCO2 (ABGP) 69(H) 35 - 45 mm Hg 04/23/2025 3:18 AM EDT [facility] PO2 (ABGP) 235(H) 80 - 100 mm Hg 04/23/2025 3:18 AM EDT [facility] HCO3 (ABGP) 16(L) 22 - 26 mmol/L 04/23/2025 3:18 AM EDT [facility] CO2 Content (ABGP) 21(L) 23 - 27 mmol/L 04/23/2025 3:18 AM EDT [facility] Base Excess (ABGP) -11.2(L) -2.0 - 3.0 mmol/L 04/23/2025 3:18 AM EDT [facility] Sodium (ABGP) 130(L) 136 - 146 mEq/L 04/23/2025 3:18 AM EDT [facility] Potassium (ABGP) 5.4(H) 3.5 - 5.0 mEq/L 04/23/2025 3:18 AM EDT [facility] Comment: In the event of in-vitro [...] - 5.30 mg/dL 04/23/2025 3:18 AM EDT [facility] Glucose (ABGP) 165(H) 70 - 100 mg/dL 04/23/2025 3:18 AM EDT [facility] Comment:There is interferenc e with whole blood glucose results on this method when Hematocrit is <25% or >60%. HCT (ABGP) 26.0(L) 35.0 - 45.0 % 04/23/2025 3:18 AM EDT [facility] HGB (ABGP) 8.8(L) 12.0 - 16.0 g/dL 04/23/2025 3:18 AM EDT [facility] %HBO2 (ABGP) 98.4(H) 95.0 - 98.0 % 04/23/2025 3:18 AM EDT [facility] Carboxyhgb (ABGP) 1.6 % 025 3:18 AM EDT [facility] Comment: CARBOXYHEMOGLOBIN (CO) REFERENCE RANGES: Non-Smokers: <2 % Smokers: <8 % TOXIC: >20 % Methemoglobin (ABGP) 0.0 0.0 - 1.5 % 04/23/2025 3:18 AM EDT [facility] Lactic Acid (ABGP) 5.5(H) 0.5 - 1.6 mmol/L 04/23/2025 3:18 AM EDT [facility] Blood, Arterial 04/23/2025 2 :54 AM EDT 04/23/2025 2:57 AM EDT Narrative [facility] - 04/23/2025 3:18 AM EDT Specimen is beyond 15 minutes from time of collection. Results may be compromised. Review results critically. Specimen is beyond 15 minutes from time of collection. Results may be compromised. Review results critically. us Ludin Jose MD LAB BLOOD ORDERABLES Final Resul t [facility] [address] [place] [address], [place] * (ABNORMAL) Calcium Free, Serum (04/23/2025 2:23 AM EDT) Free Calcium, Ser 3.80(L) 4.40 - 5.40 mg/dL 04/23/2025 3:13 AM EDT [facility] Comment:Free calcium levels vary inversely with pH by approximately 5% for each 0.1 unit of pH change. Assay results have been normalized to pH = 7.40. Serum 04/23/2025 2:23 AM EDT 04/23/2025 2:35 AM EDT Narrative [facility] - 04/23/2025 3:13 AM EDT This test has been developed and its performance characteristics determined by [facility] which is certified under the Clinical Laboratory Improvement Amendment of 1988 (CLIA-88) to perform high complexity testing. The test has not been cleared or approved by the US Food and Drug Administration (FDA). The FDA has determined that such clearance is not necessary. The test should be used for clinical purposes and is not regarded as investigational. us Sergey Altman MD LAB BLOOD ORDERABLES Final Result [facility] [address] [place] [address], [place] * (ABNORMAL) TEG-Bypass/ECMO/Liver HN (Factor function, Platelet/Fibrin Clot Strength w/Clot Breakdown, Heparinase In All Channels) (04/23/2025 2:23 AM EDT) Citrated Kaolin Reaction Time (TEGECMOLIVER) 6.3 4.6 - 9.1 minutes 04/23/2025 3:50 AM EDT [facility] Citrated Kaolin W/Heparinase Reaction Time (TEGECMOLIVER) 5.1 4.3 - 8.3 minutes 04/23/2025 3:50 AM EDT [facility] Citrated Kaolin Maximum Amplitude (TEGECMOLIVER) 40.3(L) 52.0 - 69.0 mm 04/23/2025 3:50 AM EDT [facility] Citrated Functional Fibrinogen W/Heparinase Maximum Amplitude(TEGEC MOLIVER) <6.0(L) 15.0 - 34.0 mm 04/23/2025 3:50 AM EDT [facility] Citrated Rapid Teg W/Heparinase Maximum Amplitude (TEGECMOLIVER) 36.1(L) 53.0 - 69.0 mm 04/23/2025 3:50 AM EDT [facility] Citrated Kaolin w/Heparinase Percent Lysis (TEGECMOLIVER) 0.0 0.0 - 3.2 % 04/23/2025 3:50 AM EDT [facility] Whole Blood (Citrate) 04/23/2025 2:23 AM EDT 04/23/2025 2:35 AM EDT Sergey Altman MD LAB BLOOD ORDERABLES Final Result Performing Organization Address City/[facility]/ZIP Co de Phone Number [facility] [address] * Lactic Acid, STAT (04/23/2025 2:23 AM EDT) Lactate 1.9 0.5 - 2.2 mmol/L 04/23/2025 3:08 AM EDT [facility] Plasma 04/23/2025 2:23 AM EDT 04/23/2025 2:35 AM EDT Sergey Altman MD LAB BLOOD ORDERABLES Final Result [facility] [address] * (ABNORMAL) Renal Function Panel w/EGFR (04/23/2025 2:23 AM EDT) Sodium 134 133 - 146 mmol/L 04/23/2025 3:20 AM EDT [facility] Potassium 4.6 3.5 - 5.3 mmol/L 04/23/2025 3:20 AM EDT [facility] Chloride 107 98 - 110 mmol/L 04/23/2025 3:20 AM EDT [facility] CO2 22 21 - 33 mmol/L 04/23/2025 3:20 AM EDT [facility] Comment:High lactate dehydro genase concentrations in patient samples may cause falsely increased bicarbonate results. If markedly elevated LDH is observed or suspected, please assess results in conjunction with patient`s clinical presentation. In cases of discrepant results, consider evaluating CO2 in with a blood gas order. Anion Gap 5 3 - 16 mmol/L 04/23/2025 3:20 AM EDT [facility] BUN 39(H) 7 - 25 mg/dL 04/23/2025 3:20 AM EDT [facility] Creatinine 1.28 0.60 - 1.30 mg/dL 04/23/2025 3:20 AM EDT [facility] Glucose 140(H) 70 - 100 mg/dL 04/23/2025 3:20 AM EDT [facility] Calcium 6.3(LL) 8.6 - 10.3 mg/dL 04/23/2025 3:20 AM EDT [facility] Comment:Critical Result S_CA .3 Called to and read back by: ROBERT LANDRY RN at: 04/23/2025 03:20:32 by:[email or web address] Phosphorus 5.0(H) 2.1 - 4.7 mg/dL 04/23/2025 3:20 AM EDT [facility] Albumin 2.0(L) 3.5 - 5.7 g/dL 04/23/2025 3:20 AM EDT [facility] Osmolality, Calculated 290 278 - 305 mOsm/kg 04/23/2025 3:20 AM EDT [facility] EGFR 56 04/23/2025 3:20 AM T [facility] Comment:As of 2021, the estimated [...] ORDERABLES Final Res ult Performing Organization Address City/[facility]/ZIP Co de Phone Number [facility] [address] [facility]. [address] * Magnesium (04/23/2025 2:23 AM EDT) Magnesium 1.9 1.5 - 2.5 mg/dL 04/23/2025 3:20 AM EDT [facility] Plasma 04/23/2025 2:23 AM EDT 04/23/2025 2:35 AM EDT us Giovanny Louis MD LAB BLOOD ORDERABLES Final Res ult Performing Organization Address [facility] Co de Phone Number [facility] [address] [facility]. [address] * (ABNORMAL) Hepatic Function Panel (04/23/2025 2:23 AM EDT) Total Bilirubin 1.3 0.0 - 1.5 mg/dL 04/23/2025 3:20 AM EDT [facility] Bilirubin, Direct 0.80(H) 0.00 - 0.40 mg/dL 04/23/2025 3:20 AM EDT [facility] AST 63(H) 13 - 39 U/L 04/23/2025 3:20 AM EDT [facility] ALT 89(H) 7 - 52 U/L 04/23/2025 3:20 AM EDT [facility] Alkaline Phosphatase 63 36 - 125 U/L 04/23/2025 3:20 AM EDT [facility] Total Protein <3.0(L) 6.4 - 8.9 g/dL 04/23/2025 3:20 AM EDT [facility] Albumin 2.0(L) 3.5 - 5.7 g/dL 04/23/2025 3:20 AM EDT [facility] Bilirubin, Indirect 0.50 0.00 - 1.10 mg/dL 04/23/2025 3:20 AM EDT [facility] Plasma 04/23/2025 2:23 AM EDT 04/23/2025 2:35 AM EDT us Gloria Chen MD LAB BLOOD ORDERABLES Final Resul t [facility] [address] [facility] [place] [address], [place] * (ABNORMAL) CBC (04/23/2025 2:23 AM EDT) WBC 7.7 3.8 - 10.8 10E3/uL 04/23/2025 2:56 AM EDT [facility] RBC 2.86(L) 3.80 - 5.10 10E6/uL 04/23/2025 2:56 AM EDT [facility] Hemoglobin 8.6(L) 11.7 - 15.5 g/dL 04/23/2025 2:56 AM EDT [facility] Hematocrit 24.9(L) 35.0 - 45.0 % 04/23/2025 2:56 AM EDT [facility] MCV 87.3 80.0 - 100.0 fL 04/23/2025 2:56 AM EDT [facility] MCH 30.1 27.0 - 33.0 pg 04/23/2025 2:56 AM EDT [facility] MCHC 34.5 32.0 - 36.0 g/dL 04/23/2025 2:56 AM EDT [facility] RDW 14.6 11.0 - 15.0 % 04/23/2025 2:56 AM EDT [facility] Platelets 60(L) 140 - 400 10E3/uL 04/23/2025 2:56 AM EDT [facility] MPV 10.2 7.5 - 11.5 fL 04/23/2025 2:56 AM EDT [facility] Whole Blood 04/23/2025 2:23 AM EDT 04/23/2025 2:35 AM EDT Giovanny Louis MD LAB BLOOD ORDERABLES Final Res ult [facility] [address] [facility]. [address] * (ABNORMAL) POC Glucose Monitoring Device (04/23/2025 12:26 AM EDT) POC Glucose Monitoring Device 241(H) 70 - 100 mg/dL 04/23/2025 12:27 AM EDT [facility] Blood 04/23/2025 12:2 6 AM EDT 04/23/2025 12:27 AM EDT Ludin Jose MD POINT OF CARE TEST ORDERABLES Fi nal Result Performing Organization Address [facility]/ZIP Co de Phone Number [facility] [address] [facility]. [address] * (ABNORMAL) CBC, STAT (04/23/2025 12:03 AM EDT) Pathologist [facility] [place] WBC 7.0 3.8 - 10.8 10E3/uL 04/23/2025 1:08 AM EDT [facility] RBC 1.79(L) 3.80 - 5.10 10E6/uL 04/23/2025 1:08 AM EDT [facility] Hemoglobin 5.5(LL) 11.7 - 15.5 g/dL 04/23/2025 1:08 AM EDT [facility] Comment: Results verified by repeat analysis. Critical Result HGB:5.5 Called to and read back by: MARILEE RAMSEY RN at: 04/23/2025 01:08:31 by:LITA Hematocrit 16.1(L) 35.0 - 45.0 % 04/23/2025 1:08 AM EDT [facility] MCV 90.0 80.0 - 100.0 fL 04/23/2025 1:08 AM EDT [facility] MCH 30.7 27.0 - 33.0 pg 04/23/2025 1:08 AM EDT [facility] MCHC 34.1 32.0 - 36.0 g/dL 04/23/2025 1:08 AM EDT [facility] RDW 16.2(H) 11.0 - 15.0 % 04/23/2025 1:08 AM EDT [facility] Platelets 85(L) 140 - 400 10E3/uL 04/23/2025 1:08 AM EDT [facility] MPV 10.1 7.5 - 11.5 fL 04/23/2025 1:08 AM EDT [facility] Whole Blood 04/23/2025 12:0 3 AM EDT 04/23/2025 12:10 AM EDT Sergey Altman MD LAB BLOOD ORDERABLES Final Result [facility] [address] [place] [address]. [address] * Antibody Screen (04/23/2025 12:03 AM EDT) Antibody Screen Negative 04/23/2025 12:59 AM EDT [facility] Blood 04/23/2025 12:0 3 AM EDT 04/23/2025 12:11 AM EDT Narrative [facility] - 04/23/2025 1:06 AM EDT Testing performed by [facility] Transfusion Service Sergey Altman MD BLOOD BANK TEST ORDE RABZAHRAA Final Result [facility] [address] [facility]. [address] * ABO/Rh (04/23/2025 12:03 AM EDT) ABO Grouping O 04/23/2025 12:53 AM EDT [facility] Rh Type Positive 04/23/2025 12:53 AM EDT [facility] Blood 04/23/2025 12:0 3 AM EDT 04/23/2025 12:11 AM EDT Sergey Altman MD BLOOD BANK TEST ORDE RABLES Final Result [facility] [address] [facility]. [address] * (ABNORMAL) Lactic Acid, STAT (04/22/2025 11:04 PM EDT) Lactate 2.7(H) 0.5 - 2.2 mmol/L 04/23/2025 12:17 AM EDT [facility] Plasma 04/22/2025 11:0 4 PM EDT 04/22/2025 11:12 PM EDT Sergey Altman MD LAB BLOOD ORDERABLES Final Result Performing Organization Address [facility] Co de Phone Number [facility] [address] [place] [facility]. [address] * Magnesium, STAT (04/22/2025 11:04 PM EDT) Magnesium 2.0 1.5 - 2.5 mg/dL 04/23/2025 12:20 AM EDT [facility] Plasma 04/22/2025 11:0 4 PM EDT 04/22/2025 11:12 PM EDT Sergey Altman MD LAB BLOOD ORDERABLES Final Result Performing Organization Address [facility] Co de Phone Number [facility] [address] [place] [facility]. [address] * (ABNORMAL) Renal Function Panel w/EGFR, STAT (04/22/2025 11:04 PM EDT) Sodium 133 133 - 146 mmol/L 04/23/2025 12:20 AM EDT [facility] Potassium 4.8 3.5 - 5.3 mmol/L 04/23/2025 12:20 AM EDT [facility] Chloride 106 98 - 110 mmol/L 04/23/2025 12:20 AM EDT [facility] CO2 23 21 - 33 mmol/L 04/23/2025 12:20 AM EDT [facility] Comment:High lactate dehydro genase concentrations in patient samples may cause falsely increased bicarbonate results. If markedly elevated LDH is observed or suspected, please assess results in conjunction with patient`s clinical presentation. In cases of discrepant results, consider evaluating CO2 in with a blood gas order. Anion Gap 4 3 - 16 mmol/L 04/23/2025 12:20 AM EDT [facility] BUN 40(H) 7 - 25 mg/dL 04/23/2025 12:20 AM EDT [facility] Creatinine 1.34(H) 0.60 - 1.30 mg/dL 04/23/2025 12:20 AM EDT [facility] Glucose 279(H) 70 - 100 mg/dL 04/23/2025 12:20 AM EDT [facility] Calcium 6.8(L) 8.6 - 10.3 mg/dL 04/23/2025 12:20 AM EDT [facility] Phosphorus 4.4 2.1 - 4.7 mg/dL 04/23/2025 12:20 AM EDT [facility] Albumin 2.5(L) 3.5 - 5.7 g/dL 04/23/2025 12:20 AM EDT [facility] Osmolality, Calculated 296 278 - 305 mOsm/kg 04/23/2025 12:20 AM EDT [facility] EGFR 53 04/23/2025 12:20 AM EDT [facility] Comment:As of 2021, the estimated [...] Altman MD LAB BLOOD ORDERABLES Final Result [facility] [address] [facility]. [address] * (ABNORMAL) CBC, STAT (04/22/2025 11:04 PM EDT) WBC 6.8 3.8 - 10.8 10E3/uL 04/22/2025 11:41 PM EDT [facility] RBC 2.02(L) 3.80 - 5.10 10E6/uL 04/22/2025 11:41 PM EDT [facility] Hemoglobin 6.1(L) 11.7 - 15.5 g/dL 04/22/2025 11:41 PM EDT [facility] Hematocrit 18.0(L) 35.0 - 45.0 % 04/22/2025 11:41 PM EDT [facility] MCV 89.1 80.0 - 100.0 fL 04/22/2025 11:41 PM EDT [facility] MCH 30.2 27.0 - 33.0 pg 04/22/2025 11:41 PM EDT [facility] MCHC 33.9 32.0 - 36.0 g/dL 04/22/2025 11:41 PM EDT [facility] RDW 16.5(H) 11.0 - 15.0 % 04/22/2025 11:41 PM EDT [facility] Platelets 88(L) 140 - 400 10E3/uL 04/22/2025 11:41 PM EDT [facility] Comment:Specimen checked for clots. None detected. MPV 10.0 7.5 - 11.5 fL 04/22/2025 11:41 PM EDT [facility] Whole Blood 04/22/2025 11:0 4 PM EDT 04/22/2025 11:12 PM EDT us Sergey Altman MD LAB BLOOD ORDERABLES Final Result [facility] [address] * (ABNORMAL) POC Glucose Monitoring Device (04/22/2025 9:12 PM EDT) POC Glucose Monitoring Device 266(H) 70 - 100 mg/dL 04/22/2025 9:13 PM EDT [facility] Blood 04/22/2025 9:12 PM EDT 04/22/2025 9:13 PM EDT us Ludin Jose MD POINT OF CARE TEST ORDERABLES Fi nal Result [facility] [address] * (ABNORMAL) POC Glucose Monitoring Device (04/22/2025 4:33 PM EDT) POC Glucose Monitoring Device 171(H) 70 - 100 mg/dL 04/22/2025 4:34 PM EDT [facility] Blood 04/22/2025 4:33 PM EDT 04/22/2025 4:33 PM EDT us Ludin Jose MD POINT OF CARE TEST ORDERABLES Fi nal Result Performing Organization Address [facility] Co de Phone Number [facility] [address] [facility]. [address] * (ABNORMAL) POC Glucose Monitoring Device (04/22/2025 12:05 PM EDT) POC Glucose Monitoring Device 114(H) 70 - 100 mg/dL 04/22/2025 12:06 PM EDT [facility] Blood 04/22/2025 12:0 5 PM EDT 04/22/2025 12:05 PM EDT us Ludin Jose MD POINT OF CARE TEST ORDERABLES Fi nal Result [facility] [address] * (ABNORMAL) Tacrolimus level (04/22/2025 6:06 AM EDT) Pathologist [facility] [place] Tacrolimus (LC-MS) 15.6(H) 3.0 - 15.0 ng/mL 04/22/2025 10:47 AM EDT [facility] Comment:Performed via liquid chromatography tandem mass spectrometry. Detection limit: 1 ng/mL. Individual target concentrations may vary due to target organ and time after transplant. This test has been developed and its performance characteristics determined by [facility] which is certified under the [...] MD LAB BLOOD ORDERABLES Final Resul t [facility] [address] [place], [place] [address] * (ABNORMAL) Renal Function Panel w/EGFR (04/22/2025 6:06 AM EDT) Pathologist [facility] [place] Sodium 137 133 - 146 mmol/L 04/22/2025 7:51 AM EDT [facility] Potassium 4.2 3.5 - 5.3 mmol/L 04/22/2025 7:51 AM EDT [facility] Chloride 108 98 - 110 mmol/L 04/22/2025 7:51 AM EDT [facility] CO2 22 21 - 33 mmol/L 04/22/2025 7:51 AM EDT [facility] Comment:High lactate dehydro genase concentrations in patient samples may cause falsely increased bicarbonate results. If markedly elevated LDH is observed or suspected, please assess results in conjunction with patient`s clinical presentation. In cases of discrepant results, consider evaluating CO2 in with a blood gas order. Anion Gap 7 3 - 16 mmol/L 04/22/2025 7:51 AM EDT [facility] BUN 43(H) 7 - 25 mg/dL 04/22/2025 7:51 AM EDT [facility] Creatinine 1.14 0.60 - 1.30 mg/dL 04/22/2025 7:51 AM EDT [facility] Glucose 80 70 - 100 mg/dL 04/22/2025 7:51 AM EDT [facility] Calcium 7.7(L) 8.6 - 10.3 mg/dL 04/22/2025 7:51 AM EDT [facility] Phosphorus 2.7 2.1 - 4.7 mg/dL 04/22/2025 7:51 AM EDT [facility] Albumin 3.1(L) 3.5 - 5.7 g/dL 04/22/2025 7:51 AM EDT [facility] Osmolality, Calculated 294 278 - 305 mOsm/kg 04/22/2025 7:51 AM EDT [facility] EGFR 64 04/22/2025 7:51 AM EDT [facility] Comment:As of 2021, the estimated [...] MD LAB BLOOD ORDERABLES Final Res ult [facility] [address] [facility] [place] [address], [place] * (ABNORMAL) Magnesium (04/22/2025 6:06 AM EDT) Magnesium 2.7(H) 1.5 - 2.5 mg/dL 04/22/2025 7:51 AM EDT [facility] Plasma 04/22/2025 6:06 AM EDT 04/22/2025 6:43 AM EDT Giovanny Louis MD LAB BLOOD ORDERABLES Final Res ult Performing Organization Address [facility]/ZIP Co de Phone Number [facility] [address] [facility]. [address] * (ABNORMAL) Hepatic Function Panel (04/22/2025 6:06 AM EDT) Total Bilirubin 1.9(H) 0.0 - 1.5 mg/dL 04/22/2025 7:51 AM EDT [facility] Bilirubin, Direct 1.11(H) 0.00 - 0.40 mg/dL 04/22/2025 7:51 AM EDT [facility] AST 116(H) 13 - 39 U/L 04/22/2025 7:51 AM EDT [facility] ALT 144(H) 7 - 52 U/L 04/22/2025 7:51 AM EDT [facility] Alkaline Phosphatase 83 36 - 125 U/L 04/22/2025 7:51 AM EDT [facility] Total Protein 4.5(L) 6.4 - 8.9 g/dL 04/22/2025 7:51 AM EDT [facility] Albumin 3.1(L) 3.5 - 5.7 g/dL 04/22/2025 7:51 AM EDT [facility] Bilirubin, Indirect 0.79 0.00 - 1.10 mg/dL 04/22/2025 7:51 AM EDT [facility] Plasma 04/22/2025 6:06 AM EDT 04/22/2025 6:43 AM EDT Gloria Chen MD LAB BLOOD ORDERABLES Final Resul t [facility] [address] [facility]. [address] * (ABNORMAL) CBC (04/22/2025 6:06 AM EDT) WBC 4.1 3.8 - 10.8 10E3/uL 04/22/2025 8:39 AM EDT [facility] RBC 3.13(L) 3.80 - 5.10 10E6/uL 04/22/2025 8:39 AM EDT [facility] Hemoglobin 9.6(L) 11.7 - 15.5 g/dL 04/22/2025 8:39 AM EDT [facility] Hematocrit 27.7(L) 35.0 - 45.0 % 04/22/2025 8:39 AM EDT [facility] MCV 88.5 80.0 - 100.0 fL 04/22/2025 8:39 AM EDT [facility] MCH 30.8 27.0 - 33.0 pg 04/22/2025 8:39 AM EDT [facility] MCHC 34.8 32.0 - 36.0 g/dL 04/22/2025 8:39 AM EDT [facility] RDW 16.3(H) 11.0 - 15.0 % 04/22/2025 8:39 AM EDT [facility] Platelets 48(L) 140 - 400 10E3/uL 04/22/2025 8:39 AM EDT [facility] Comment: CNV Specimen checked for clots. None detected. MPV 9.7 7.5 - 11.5 fL 04/22/2025 8:39 AM EDT [facility] Whole Blood 04/22/2025 6:06 AM EDT 04/22/2025 6:43 AM EDT Giovanny Louis MD LAB BLOOD ORDERABLES Final Res ult [facility] [address] [place] [address], [place] * POC Glucose Monitoring Device (04/22/2025 5:58 AM EDT) POC Glucose Monitoring Device 80 70 - 100 mg/dL 04/22/2025 5:58 AM EDT [facility] Blood 04/22/2025 5:58 AM EDT 04/22/2025 5:58 AM EDT us Ludin Jose MD POINT OF CARE TEST ORDERABLES Fi nal Result Performing Organization Address [facility] Co de Phone Number [facility] [address] [facility]. [address] * (ABNORMAL) POC Glucose Monitoring Device (04/21/2025 11:19 PM EDT) POC Glucose Monitoring Device 109(H) 70 - 100 mg/dL 04/21/2025 11:19 PM EDT [facility] Blood 04/21/2025 11:1 9 PM EDT 04/21/2025 11:19 PM EDT us Ludin Jose MD POINT OF CARE TEST ORDERABLES Fi nal Result Performing Organization Address [facility] de Phone Number [facility] [address] [facility]. [address] * (ABNORMAL) POC Glucose Monitoring Device (04/21/2025 6:17 PM EDT) POC Glucose Monitoring Device 137(H) 70 - 100 mg/dL 04/21/2025 6:18 PM EDT [facility] Blood 04/21/2025 6:17 PM EDT 04/21/2025 6:18 PM EDT us Ludin Jose MD POINT OF CARE TEST ORDERABLES Fi nal Result Performing Organization Address [facility] Co de Phone Number [facility] [address] [place] [facility]. [address] * VAS Venous Duplex Upper Left [...] Glucose Monitoring Device (04/21/2025 12:52 PM EDT) POC Glucose Monitoring Device 118(H) 70 - 100 mg/dL 04/21/2025 12:52 PM EDT [facility] Blood 04/21/2025 12:5 2 PM EDT 04/21/2025 12:52 PM EDT Ludin Jose MD POINT OF CARE TEST ORDERABLES Fi nal Result [facility] [address] * Osmolality, urine (04/21/2025 12:31 PM EDT) Osmolality, Ur 518 50 - 1,200 mOsm/kg 04/21/2025 2:35 PM EDT [facility] Urine 04/21/2025 12:3 1 PM EDT 04/21/2025 12:50 PM EDT Marah Hull CNP URINE ORDERABLES Final Result [facility] [address] * Creatinine, urine, random (04/21/2025 12:31 PM EDT) Creatinine, Urine 45.10 mg/dL 04/21/2025 1:50 PM EDT [facility] Comment:Reference range not established for this test. Urine 04/21/2025 12:3 1 PM EDT 04/21/2025 12:50 PM EDT Marah Hull CNP URINE ORDERABLES Final Result Performing Organization Address City/[facility] Co de Phone Number [facility] [address] * Protein, Total urine, random (04/21/2025 12:31 PM EDT) Total Protein, Ur 29 mg/dL 04/21/2025 1:50 PM EDT [facility] Comment:Reference range not established for this test. Urine 04/21/2025 12:3 1 PM EDT 04/21/2025 12:50 PM EDT Marah Hull CNP URINE ORDERABLES Final Result Performing Organization Address [facility] Co de Phone Number [facility] [address] * Sodium, urine, random (04/21/2025 12:31 PM EDT) Sodium, Ur 77 mmol/L 04/21/2025 1:50 PM EDT [facility] Comment:Reference range not established for this test. Urine 04/21/2025 12:3 1 PM EDT 04/21/2025 12:50 PM EDT Marah Hull CNP URINE ORDERABLES Final Result Performing Organization Address City/[facility] Co de Phone Number [facility] [address] [facility]. [address] * US Abdomen Limited (04/21/2025 9:47 [...] EXAM: US ABDOMEN LIMITED EXAM: US DUPLEX [id number] COMPLETE INDICATION: Post-op liver transplant DATE: 04/21/2025 [...] EXAM: US ABDOMEN LIMITED EXAM: US DUPLEX [id number] COMPLETE INDICATION: Post-op liver transplant DATE: 04/21/2025 [...] 04/21/2025 6:27 PM EDT us Marah Hull CNP IM US ORDERABLES Final Resul t * US Duplex Rix-Zor-Nlermxe Comp (04/21/2025 9:47 AM EDT) Anatomical Region [...] EXAM: US ABDOMEN LIMITED EXAM: US DUPLEX [id number] COMPLETE INDICATION: Post-op liver transplant DATE: 04/21/2025 [...] EXAM: US ABDOMEN LIMITED EXAM: US DUPLEX [id number] COMPLETE INDICATION: Post-op liver transplant DATE: 04/21/2025 [...] 04/21/2025 6:27 PM EDT us Marah Hull HOTEL RESERVATIONIST IMG US ORDERABLES Final Resul t * (ABNORMAL) Renal Function Panel w/EGFR (04/21/2025 9:00 AM EDT) Sodium 136 133 - 146 mmol/L 04/21/2025 10:11 AM EDT [facility] Potassium 4.1 3.5 - 5.3 mmol/L 04/21/2025 10:11 AM EDT [facility] Chloride 109 98 - 110 mmol/L [...] - 16 mmol/L 04/21/2025 10:11 AM EDT [facility] BUN 64(H) 7 - 25 mg/dL 04/21/2025 10:11 AM EDT [facility] Creatinine 1.40(H) 0.60 - 1.30 mg/dL 04/21/2025 10:11 AM EDT [facility] Glucose 69(L) 70 - 100 mg/dL 04/21/2025 10:11 AM EDT [facility] Calcium 7.4(L) 8.6 - 10.3 mg/dL 04/21/2025 10:11 AM EDT [facility] Phosphorus 3.9 2.1 - 4.7 mg/dL 04/21/2025 10:11 AM EDT [facility] Albumin 3.0(L) 3.5 - 5.7 g/dL 04/21/2025 10:11 AM EDT [facility] Osmolality, Calculated 299 278 - 305 mOsm/kg 04/21/2025 10:11 AM EDT [facility] EGFR 50 04/21/2025 10:11 AM EDT [facility] Comment:As of 2021, the estimated [...] ORDERABLES Final Res ult Performing Organization Address [facility] Co de Phone Number [facility] [address] * (ABNORMAL) Magnesium (04/21/2025 9:00 AM EDT) Magnesium 2.7(H) 1.5 - 2.5 mg/dL 04/21/2025 10:11 AM EDT [facility] Plasma 04/21/2025 9:00 AM EDT 04/21/2025 9:23 AM EDT us Giovanny Louis MD LAB BLOOD ORDERABLES Final Res ult [facility] [address] [place] [id number], [place] * (ABNORMAL) Hepatic Function Panel (04/21/2025 9:00 AM EDT) Total Bilirubin 1.6(H) 0.0 - 1.5 mg/dL 04/21/2025 10:11 AM EDT [facility] Bilirubin, Direct 0.91(H) 0.00 - 0.40 mg/dL 04/21/2025 10:11 AM EDT [facility] AST 122(H) 13 - 39 U/L 04/21/2025 10:11 AM EDT [facility] ALT 134(H) 7 - 52 U/L 04/21/2025 10:11 AM EDT [facility] Alkaline Phosphatase 56 36 - 125 U/L 04/21/2025 10:11 AM EDT [facility] Total Protein 4.5(L) 6.4 - 8.9 g/dL 04/21/2025 10:11 AM EDT [facility] Albumin 3.0(L) 3.5 - 5.7 g/dL 04/21/2025 10:11 AM EDT [facility] Bilirubin, Indirect 0.69 0.00 - 1.10 mg/dL 04/21/2025 10:11 AM EDT [facility] Plasma 04/21/2025 9:00 AM EDT 04/21/2025 9:23 AM EDT us Gloria Chen MD LAB BLOOD ORDERABLES Final Resul t [facility] [address] * (ABNORMAL) CBC (04/21/2025 9:00 AM EDT) WBC 6.0 3.8 - 10.8 10E3/uL 04/21/2025 9:32 AM EDT [facility] RBC 3.17(L) 3.80 - 5.10 10E6/uL 04/21/2025 9:32 AM EDT [facility] Hemoglobin 9.7(L) 11.7 - 15.5 g/dL 04/21/2025 9:32 AM EDT [facility] Hematocrit 28.4(L) 35.0 - 45.0 % 04/21/2025 9:32 AM EDT [facility] MCV 89.5 80.0 - 100.0 fL 04/21/2025 9:32 AM EDT [facility] MCH 30.7 27.0 - 33.0 pg 04/21/2025 9:32 AM EDT [facility] MCHC 34.2 32.0 - 36.0 g/dL 04/21/2025 9:32 AM EDT [facility] RDW 16.6(H) 11.0 - 15.0 % 04/21/2025 9:32 AM EDT [facility] Platelets 49(L) 140 - 400 10E3/uL 04/21/2025 9:32 AM EDT [facility] Comment: CNV Specimen checked for clots. None detected. MPV 9.5 7.5 - 11.5 fL 04/21/2025 9:32 AM EDT [facility] Whole Blood 04/21/2025 9:00 AM EDT 04/21/2025 9:23 AM EDT Giovanny Louis MD LAB BLOOD ORDERABLES Final Res ult [facility] [address] * Tacrolimus level (04/21/2025 9:00 AM EDT) Tacrolimus (LC-MS) 13.2 3.0 - 15.0 ng/mL 04/21/2025 2:34 PM EDT [facility] Comment:Performed via liquid chromatography tandem mass spectrometry. Detection limit: 1 ng/mL. Individual target concentrations may vary due to target organ and time after transplant. This test has been developed and its performance characteristics determined by [facility] which is certified under the [...] ORDERABLES Final Res ult Performing Organization Address [facility] de Phone Number [facility] [address] [facility] * (ABNORMAL) Protime-INR, STAT (04/21/2025 9:00 AM EDT) Protime 17.8(H) 12.1 - 15.1 seconds 04/21/2025 11:05 AM EDT [facility] INR 1.4(H) 0.9 - 1.1 04/21/2025 11:05 AM EDT [facility] Comment: RECOMMENDED THERAPEUTIC RANGES USING INR : Stable oral anticoagulant therapy: 2.0 - 3.0 Mechanical prosthetic heart valve: 2.5 - 3.5 Recurrent acute myocardial infarction: 2.5 - 3.5 Plasma 04/21/2025 9:00 AM EDT 04/21/2025 9:23 AM EDT Giovanny Louis MD LAB BLOOD ORDERABLES Final Res ult Performing Organization Address [facility] de Phone Number [facility] [address] [facility]. [address] * Insert PICC line (04/21/2025 8:37 AM EDT) Chava Quezada RN - 04/21/2025 8:37 AM EDT Chava Mcgraw RN 04/21/2025 8:38 AM Insert PICC line Date/Time: 04/21/2025 8:37 AM Performed by: Chava Mcgraw RN Authorized by: Ludin Jose MD [place] Protocol: Verbal consent obtained?: Yes Written consent [...] time out verifies correct patient, procedure, equipment, operations support coordinator and site/side marked as required: Preparation: Preparation: [...] - 100 mg/dL 04/21/2025 4:56 AM EDT [facility] Blood 04/21/2025 4:56 AM EDT 04/21/2025 4:56 AM EDT us Ludin Jose MD POINT OF CARE TEST ORDERABLES Fi nal Result Performing Organization Address [facility] de Phone Number [facility] [address] [place] [address] * POC Glucose Monitoring Device (04/20/2025 11:27 PM EDT) POC Glucose Monitoring Device 96 70 - 100 mg/dL 04/20/2025 11:30 PM EDT [facility] Blood 04/20/2025 11:2 7 PM EDT 04/20/2025 11:30 PM EDT us Ludin Jose MD POINT OF CARE TEST ORDERABLES Fi nal Result Performing Organization Address [facility] Co de Phone Number [facility] [address] [place] [address] * (ABNORMAL) POC Glucose Monitoring Device (04/20/2025 6:30 PM EDT) [facility] POC Glucose Monitoring Device 103(H) 70 - 100 mg/dL 04/20/2025 6:31 PM EDT [facility] Blood 04/20/2025 6:30 PM EDT 04/20/2025 6:31 PM EDT us Ludin Jose MD POINT OF CARE TEST ORDERABLES Fi nal Result [facility] [address] [place] [address], [place] * (ABNORMAL) Renal Function Panel w/EGFR (04/20/2025 6:09 PM EDT) [facility] Sodium 133 133 - 146 mmol/L 04/20/2025 7:05 PM EDT [facility] Potassium 5.4(H) 3.5 - 5.3 mmol/L 04/20/2025 7:05 PM EDT [facility] Comment:Hemolysis Present: R esults may be influenced artificially. Recommend recollection as clinically indicated. Chloride 108 98 - 110 mmol/L 04/20/2025 7:05 PM EDT [facility] CO2 19(L) 21 - 33 mmol/L 04/20/2025 7:05 PM EDT [facility] Comment:High lactate dehydro genase concentrations in patient samples may cause falsely increased bicarbonate results. If markedly elevated LDH is observed or suspected, please assess results in conjunction with patient`s clinical presentation. In cases of discrepant results, consider evaluating CO2 in with a blood gas order. Anion Gap 6 3 - 16 mmol/L 04/20/2025 7:05 PM EDT [facility] BUN 57(H) 7 - 25 mg/dL 04/20/2025 7:05 PM EDT [facility] Creatinine 1.25 0.60 - 1.30 mg/dL 04/20/2025 7:05 PM EDT [facility] Glucose 109(H) 70 - 100 mg/dL 04/20/2025 7:05 PM EDT [facility] Calcium 7.0(L) 8.6 - 10.3 mg/dL 04/20/2025 7:05 PM EDT [facility] Phosphorus 4.3 2.1 - 4.7 mg/dL 04/20/2025 7:05 PM EDT [facility] Comment:HEMOLYSIS EVIDENT. R ESULTS MAY BE INFLUENCED. Albumin 2.6(L) 3.5 - 5.7 g/dL 04/20/2025 7:05 PM EDT [facility] Osmolality, Calculated 292 278 - 305 mOsm/kg 04/20/2025 7:05 PM EDT [facility] EGFR 58 04/20/2025 7:05 PM EDT [facility] Comment:As of 2021, the estimated [...] Altman MD LAB BLOOD ORDERABLES Final Result [facility] [address] * (ABNORMAL) Magnesium (04/20/2025 6:09 PM EDT) Magnesium 2.6(H) 1.5 - 2.5 mg/dL 04/20/2025 7:05 PM EDT [facility] Comment:HEMOLYSIS EVIDENT. R ESULTS MAY BE INFLUENCED. Plasma 04/20/2025 6:09 PM EDT 04/20/2025 6:13 PM EDT us Sergey Altman MD LAB BLOOD ORDERABLES Final Result [facility] [address]. [address] * (ABNORMAL) Hepatic Function Panel (04/20/2025 6:09 PM EDT) Total Bilirubin 1.6(H) 0.0 - 1.5 mg/dL 04/20/2025 7:05 PM EDT [facility] Bilirubin, Direct 0.30 0.00 - 0.40 mg/dL 04/20/2025 7:05 PM EDT [facility] Comment:HEMOLYSIS EVIDENT. D IRECT BILIRUBIN CONCENTRATIONS MAY BE FALSELY DECREASED IN THE PRESENCE OF HEMOLYSIS. INTERPRET WITH CAUTION. AST 162(H) 13 - 39 U/L 04/20/2025 7:05 PM EDT [facility] ALT 137(H) 7 - 52 U/L 04/20/2025 7:05 PM EDT [facility] Alkaline Phosphatase 49 36 - 125 U/L 04/20/2025 7:05 PM EDT [facility] Total Protein 4.1(L) 6.4 - 8.9 g/dL 04/20/2025 7:05 PM EDT [facility] Albumin 2.6(L) 3.5 - 5.7 g/dL 04/20/2025 7:05 PM EDT [facility] Bilirubin, Indirect 1.30(H) 0.00 - 1.10 mg/dL 04/20/2025 7:05 PM EDT [facility] Plasma 04/20/2025 6:09 PM EDT 04/20/2025 6:13 PM EDT us Sergey Altman MD LAB BLOOD ORDERABLES Final Result [facility] [address] [facility]. [address] * (ABNORMAL) POC Glucose Monitoring Device (04/20/2025 12:31 PM EDT) POC Glucose Monitoring Device 121(H) 70 - 100 mg/dL 04/20/2025 12:32 PM EDT [facility] Blood 04/20/2025 12:3 1 PM EDT 04/20/2025 12:32 PM EDT us Ludin Jose MD POINT OF CARE TEST ORDERABLES Fi nal Result Performing Organization Address [facility] de Phone Number [facility] [address] [place] [address] * Tacrolimus level (04/20/2025 8:20 AM EDT) Tacrolimus (LC-MS) 6.9 3.0 - 15.0 ng/mL 04/20/2025 2:09 PM EDT [facility] Comment:Performed via liquid chromatography tandem mass spectrometry. Detection limit: 1 ng/mL. Individual target concentrations may vary due to target organ and time after transplant. This test has been developed and its performance characteristics determined by [facility] which is certified under the [...] ORDERABLES Final Res ult Performing Organization Address [facility] de Phone Number [facility] [address] [place] [address]. [address] * (ABNORMAL) POC Glucose Monitoring Device (04/20/2025 5:34 AM EDT) POC Glucose Monitoring Device 144(H) 70 - 100 mg/dL 04/20/2025 5:34 AM EDT [facility] Blood 04/20/2025 5:34 AM EDT 04/20/2025 5:34 AM EDT us Ludin Jose MD POINT OF CARE TEST ORDERABLES Fi nal Result Performing Organization Address [facility] de Phone Number [facility] [address] * Calcium Free, Serum (04/20/2025 1:33 AM EDT) Free Calcium, Ser 4.80 4.40 - 5.40 mg/dL 04/20/2025 1:50 AM EDT [facility] Comment:Free calcium levels vary inversely with pH by approximately 5% for each 0.1 unit of pH change. Assay results have been normalized to pH = 7.40. Serum 04/20/2025 1:33 AM EDT 04/20/2025 1:39 AM EDT Narrative [facility] - 04/20/2025 1:50 AM EDT This test has been developed and its performance characteristics determined by [facility] which is certified under the [...] ORDERABLES Final Resul t Performing Organization Address [facility] de Phone Number [facility] [address] [facility]. [address] * (ABNORMAL) Renal Function Panel w/EGFR (04/20/2025 1:33 AM EDT) Sodium 141 133 - 146 mmol/L 04/20/2025 2:05 AM EDT [facility] Potassium 5.2 3.5 - 5.3 mmol/L 04/20/2025 2:05 AM EDT [facility] Chloride 113(H) 98 - 110 mmol/L 04/20/2025 2:05 AM EDT [facility] CO2 21 21 - 33 mmol/L 04/20/2025 2:05 AM EDT [facility] Comment:High lactate dehydro genase concentrations in patient samples may cause falsely increased bicarbonate results. If markedly elevated LDH is observed or suspected, please assess results in conjunction with patient`s clinical presentation. In cases of discrepant results, consider evaluating CO2 in with a blood gas order. Anion Gap 7 3 - 16 mmol/L 04/20/2025 2:05 AM EDT [facility] BUN 37(H) 7 - 25 mg/dL 04/20/2025 2:05 AM EDT [facility] Creatinine 1.01 0.60 - 1.30 mg/dL 04/20/2025 2:05 AM EDT [facility] Glucose 150(H) 70 - 100 mg/dL 04/20/2025 2:05 AM EDT [facility] Calcium 7.9(L) 8.6 - 10.3 mg/dL 04/20/2025 2:05 AM EDT [facility] Phosphorus 4.9(H) 2.1 - 4.7 mg/dL 04/20/2025 2:05 AM EDT [facility] Albumin 2.8(L) 3.5 - 5.7 g/dL 04/20/2025 2:05 AM EDT [facility] Osmolality, Calculated 304 278 - 305 mOsm/kg 04/20/2025 2:05 AM EDT [facility] EGFR 74 04/20/2025 2:05 AM EDT [facility] Comment:As of 2021, the estimated [...] 1:33 AM EDT 04/20/2025 1:39 AM EDT us Sergey Altman MD LAB BLOOD ORDERABLES Final Result [facility]. [facility] [address] * (ABNORMAL) Protime-INR (04/20/2025 1:33 AM EDT) Protime 21.0(H) 12.1 - 15.1 seconds 04/20/2025 1:51 AM EDT [facility] INR 1.7(H) 0.9 - 1.1 04/20/2025 1:51 AM EDT [facility] Comment: RECOMMENDED THERAPEUTIC RANGES USING INR : Stable oral anticoagulant therapy: 2.0 - 3.0 Mechanical prosthetic heart valve: 2.5 - 3.5 Recurrent acute myocardial infarction: 2.5 - 3.5 Plasma 04/20/2025 1:33 AM EDT 04/20/2025 1:39 AM EDT Sergey Altman MD LAB BLOOD ORDERABLES Final Result [facility] [address] [facility]. [address] * Magnesium (04/20/2025 1:33 AM EDT) Pathologist [facility] [place] Magnesium 2.4 1.5 - 2.5 mg/dL 04/20/2025 2:05 AM EDT [facility] Plasma 04/20/2025 1:33 AM EDT 04/20/2025 1:39 AM EDT Sergey Altman MD LAB BLOOD ORDERABLES Final Result [facility] [address] [facility]. [address] * (ABNORMAL) Hepatic Function Panel (04/20/2025 1:33 AM EDT) Total Bilirubin 1.6(H) 0.0 - 1.5 mg/dL 04/20/2025 2:05 AM EDT [facility] Bilirubin, Direct 0.59(H) 0.00 - 0.40 mg/dL 04/20/2025 2:05 AM EDT [facility] AST 163(H) 13 - 39 U/L 04/20/2025 2:05 AM EDT [facility] ALT 127(H) 7 - 52 U/L 04/20/2025 2:05 AM EDT [facility] Alkaline Phosphatase 54 36 - 125 U/L 04/20/2025 2:05 AM EDT [facility] Total Protein 4.4(L) 6.4 - 8.9 g/dL 04/20/2025 2:05 AM EDT [facility] Albumin 2.8(L) 3.5 - 5.7 g/dL 04/20/2025 2:05 AM EDT [facility] Bilirubin, Indirect 1.01 0.00 - 1.10 mg/dL 04/20/2025 2:05 AM EDT [facility] Plasma 04/20/2025 1:33 AM EDT 04/20/2025 1:39 AM EDT us Sergey Altman MD LAB BLOOD ORDERABLES Final Result [facility] [address] [place] [id number], [place] * (ABNORMAL) CBC (04/20/2025 1:33 AM EDT) WBC 10.9(H) 3.8 - 10.8 10E3/uL 04/20/2025 1:42 AM EDT [facility] RBC 3.89 3.80 - 5.10 10E6/uL 04/20/2025 1:42 AM EDT [facility] Hemoglobin 11.8 11.7 - 15.5 g/dL 04/20/2025 1:42 AM EDT [facility] Hematocrit 34.9(L) 35.0 - 45.0 % 04/20/2025 1:42 AM EDT [facility] MCV 89.6 80.0 - 100.0 fL 04/20/2025 1:42 AM EDT [facility] MCH 30.3 27.0 - 33.0 pg 04/20/2025 1:42 AM EDT [facility] MCHC 33.8 32.0 - 36.0 g/dL 04/20/2025 1:42 AM EDT [facility] RDW 17.1(H) 11.0 - 15.0 % 04/20/2025 1:42 AM EDT [facility] Platelets 77(L) 140 - 400 10E3/uL 04/20/2025 1:42 AM EDT [facility] MPV 9.8 7.5 - 11.5 fL 04/20/2025 1:42 AM EDT [facility] Whole Blood 04/20/2025 1:33 AM EDT 04/20/2025 1:39 AM EDT us Sergey Altman MD LAB BLOOD ORDERABLES Final Result Performing Organization Address [facility]/ZIP Co de Phone Number [facility] [address] * (ABNORMAL) POC Glucose Monitoring Device (04/20/2025 1:26 AM EDT) Pathologist [facility] [place] POC Glucose Monitoring Device 156(H) 70 - 100 mg/dL 04/20/2025 1:28 AM EDT [facility] Blood 04/20/2025 1:26 AM EDT 04/20/2025 1:27 AM EDT us Ludin Jose MD POINT OF CARE TEST ORDERABLES Fi nal Result Performing Organization Address City/[facility]/ZIP Co de Phone Number [facility] [address] * (ABNORMAL) Renal Function Panel w/EGFR (04/19/2025 5:27 PM EDT) Sodium 141 133 - 146 mmol/L 04/19/2025 6:23 PM EDT [facility] Potassium 5.4(H) 3.5 - 5.3 mmol/L 04/19/2025 6:23 PM EDT [facility] Chloride 113(H) 98 - 110 mmol/L 04/19/2025 6:23 PM EDT [facility] CO2 21 21 - 33 mmol/L 04/19/2025 6:23 PM EDT [facility] Comment:High lactate dehydro genase concentrations in patient samples may cause falsely increased bicarbonate results. If markedly elevated LDH is observed or suspected, please assess results in conjunction with patient`s clinical presentation. In cases of discrepant results, consider evaluating CO2 in with a blood gas order. Anion Gap 7 3 - 16 mmol/L 04/19/2025 6:23 PM EDT [facility] BUN 31(H) 7 - 25 mg/dL 04/19/2025 6:23 PM EDT [facility] Creatinine 0.92 0.60 - 1.30 mg/dL 04/19/2025 6:23 PM EDT [facility] Glucose 133(H) 70 - 100 mg/dL 04/19/2025 6:23 PM EDT [facility] Calcium 7.8(L) 8.6 - 10.3 mg/dL 04/19/2025 6:23 PM EDT [facility] Phosphorus 4.7 2.1 - 4.7 mg/dL 04/19/2025 6:23 PM EDT [facility] Albumin 2.9(L) 3.5 - 5.7 g/dL 04/19/2025 6:23 PM EDT [facility] Osmolality, Calculated 300 278 - 305 mOsm/kg 04/19/2025 6:23 PM EDT [facility] EGFR 83 04/19/2025 6:23 PM EDT [facility] Comment:As of 2021, the estimated [...] ND, Jyoti GARDUNO, Nas LINARES, et al. A Unifying Approach for GFR Estimation: Recommendations of the NKF-ASN Task Force on Reassessing the inclusion of Race in Diagnosing Kidney Disease. Am J Kidney Dis. 2020. Plasma 04/19/2025 5:27 PM EDT 04/19/2025 5:31 PM EDT Sergey Altman MD LAB BLOOD ORDERABLES Final Result Performing Organization Address [facility] Co de Phone Number [facility] [address] [facility]. [address] * (ABNORMAL) Protime-INR (04/19/2025 5:27 PM EDT) Protime 23.0(H) 12.1 - 15.1 seconds 04/19/2025 5:52 PM EDT [facility] INR 1.9(H) 0.9 - 1.1 04/19/2025 5:52 PM EDT [facility] Comment: RECOMMENDED THERAPEUTIC RANGES USING INR : Stable oral anticoagulant therapy: 2.0 - 3.0 Mechanical prosthetic heart valve: 2.5 - 3.5 Recurrent acute myocardial infarction: 2.5 - 3.5 Plasma 04/19/2025 5:27 PM EDT 04/19/2025 5:31 PM EDT Sergey Altman MD LAB BLOOD ORDERABLES Final Result Performing Organization Address [facility] Co de Phone Number [facility] [address] [facility]. [address] * Magnesium (04/19/2025 5:27 PM EDT) Magnesium 2.3 1.5 - 2.5 mg/dL 04/19/2025 6:23 PM EDT [facility] Plasma 04/19/2025 5:27 PM EDT 04/19/2025 5:31 PM EDT Sergey Altman MD LAB BLOOD ORDERABLES Final Result Performing Organization Address City/[facility]/ZIP Co de Phone Number [facility] [address] [facility]. [address] * (ABNORMAL) Hepatic Function Panel (04/19/2025 5:27 PM EDT) Total Bilirubin 2.0(H) 0.0 - 1.5 mg/dL 04/19/2025 6:23 PM EDT [facility] Bilirubin, Direct 0.79(H) 0.00 - 0.40 mg/dL 04/19/2025 6:23 PM EDT [facility] AST 178(H) 13 - 39 U/L 04/19/2025 6:23 PM EDT [facility] ALT 131(H) 7 - 52 U/L 04/19/2025 6:23 PM EDT [facility] Alkaline Phosphatase 58 36 - 125 U/L 04/19/2025 6:23 PM EDT [facility] Total Protein 4.5(L) 6.4 - 8.9 g/dL 04/19/2025 6:23 PM EDT [facility] Albumin 2.9(L) 3.5 - 5.7 g/dL 04/19/2025 6:23 PM EDT [facility] Bilirubin, Indirect 1.21(H) 0.00 - 1.10 mg/dL 04/19/2025 6:23 PM EDT [facility] Plasma 04/19/2025 5:27 PM EDT 04/19/2025 5:31 PM EDT Sergey Altman MD LAB BLOOD ORDERABLES Final Result Performing Organization Address City/State/[facility] Co de Phone Number [facility] [address] * (ABNORMAL) CBC (04/19/2025 5:27 PM EDT) WBC 13.3(H) 3.8 - 10.8 10E3/uL 04/19/2025 5:37 PM EDT [facility] RBC 4.08 3.80 - 5.10 10E6/uL 04/19/2025 5:37 PM EDT [facility] Hemoglobin 12.5 11.7 - 15.5 g/dL 04/19/2025 5:37 PM EDT [facility] Hematocrit 37.1 35.0 - 45.0 % 04/19/2025 5:37 PM EDT [facility] MCV 90.8 80.0 - 100.0 fL 04/19/2025 5:37 PM EDT [facility] MCH 30.5 27.0 - 33.0 pg 04/19/2025 5:37 PM EDT [facility] MCHC 33.6 32.0 - 36.0 g/dL 04/19/2025 5:37 PM EDT [facility] RDW 16.7(H) 11.0 - 15.0 % 04/19/2025 5:37 PM EDT [facility] Platelets 77(L) 140 - 400 10E3/uL 04/19/2025 5:37 PM EDT [facility] MPV 9.1 7.5 - 11.5 fL 04/19/2025 5:37 PM EDT [facility] Whole Blood 04/19/2025 5:27 PM EDT 04/19/2025 5:31 PM EDT Sergey Altman MD LAB BLOOD ORDERABLES Final Result [facility] [address] * (ABNORMAL) POC Glucose Monitoring Device (04/19/2025 5:25 PM EDT) [facility] POC Glucose Monitoring Device 118(H) 70 - 100 mg/dL 04/19/2025 5:26 PM EDT [facility] Blood 04/19/2025 5:25 PM EDT 04/19/2025 5:26 PM EDT Ludin Jose MD POINT OF CARE TEST ORDERABLES Fi nal Result [facility] [address] * Coccidioides Antibody Reflexive Panel (04/19/2025 12:41 PM EDT) Coccidioides IgM 0.7 <=0.9 IV 04/23/20 7:41 PM EDT [facility] Comment: INTERPRETIVE INFORMATION: Coccidioides Antibody, [...] 0.2 <=0.9 IV 04/23/20 7:41 PM EDT [facility] Comment: INTERPRETIVE INFORMATION: Coccidioides Antibody, [...] represented in the [facility] tests. Effective March 262981 Coccidioides Ab, IgG by [facility] will be made non-orderable. [facility] offers order code [id number] Coccidioides Abs, IgG/IgM, EIA. For further information, please contact your local [facility]. Serum 04/19/2025 12:4 1 PM EDT 04/23/2025 8:07 PM EDT Narrative [facility] [employer] [facility] - 04/23/2025 8:07 PM EDT PERFORMED AT: [employer] [address] [place] [address] [id number] SUPERVISOR MAINTENANCE: MARIE Gaspar PHONE: [phone] us Shannan Kumar PharmD LAB BLOOD ORDERABLES Final Result [facility] [address] [place] [address], [place] * (ABNORMAL) Renal Function Panel w/EGFR (04/19/2025 12:41 PM EDT) Sodium 139 133 - 146 mmol/L 04/19/2025 1:22 PM EDT [facility] Potassium 5.2 3.5 - 5.3 mmol/L 04/19/2025 1:22 PM EDT [facility] Chloride 112(H) 98 - 110 mmol/L 04/19/2025 1:22 PM EDT [facility] CO2 23 21 - 33 mmol/L 04/19/2025 1:22 PM EDT [facility] Comment:High lactate dehydro genase concentrations in patient samples may cause falsely increased bicarbonate results. If markedly elevated LDH is observed or suspected, please assess results in conjunction with patient`s clinical presentation. In cases of discrepant results, consider evaluating CO2 in with a blood gas order. Anion Gap 4 3 - 16 mmol/L 04/19/2025 1:22 PM EDT [facility] BUN 27(H) 7 - 25 mg/dL 04/19/2025 1:22 PM EDT [facility] Creatinine 0.85 0.60 - 1.30 mg/dL 04/19/2025 1:22 PM EDT [facility] Glucose 120(H) 70 - 100 mg/dL 04/19/2025 1:22 PM EDT [facility] Calcium 7.6(L) 8.6 - 10.3 mg/dL 04/19/2025 1:22 PM EDT [facility] Phosphorus 4.1 2.1 - 4.7 mg/dL 04/19/2025 1:22 PM EDT [facility] Albumin 2.9(L) 3.5 - 5.7 g/dL 04/19/2025 1:22 PM EDT [facility] Osmolality, Calculated 294 278 - 305 mOsm/kg 04/19/2025 1:22 PM EDT [facility] EGFR >90 04/19/2025 1:22 PM T [facility] Comment: As of 2021, the [...] BLOOD ORDERABLES Final Result Performing Organization Address [facility] Co de Phone Number [facility] [address] * (ABNORMAL) Protime-INR (04/19/2025 12:41 PM EDT) Protime 22.0(H) 12.1 - 15.1 seconds 04/19/2025 1:38 PM EDT [facility] INR 1.8(H) 0.9 - 1.1 04/19/2025 1:38 PM EDT [facility] Comment: RECOMMENDED THERAPEUTIC RANGES USING INR : Stable oral anticoagulant therapy: 2.0 - 3.0 Mechanical prosthetic heart valve: 2.5 - 3.5 Recurrent acute myocardial infarction: 2.5 - 3.5 Plasma 04/19/2025 12:4 1 PM EDT 04/19/2025 12:50 PM EDT Sergey Altman MD LAB BLOOD ORDERABLES Final Result Performing Organization Address City/[facility]/ZIP Co de Phone Number [facility] [address] * Magnesium (04/19/2025 12:41 PM EDT) Magnesium 2.2 1.5 - 2.5 mg/dL 04/19/2025 1:22 PM EDT [facility] Plasma 04/19/2025 12:4 1 PM EDT 04/19/2025 12:50 PM EDT Sergey Altman MD LAB BLOOD ORDERABLES Final Result [facility] [address] [facility]. [address] * (ABNORMAL) Hepatic Function Panel (04/19/2025 12:41 PM EDT) Total Bilirubin 2.1(H) 0.0 - 1.5 mg/dL 04/19/2025 1:22 PM EDT [facility] Bilirubin, Direct 0.81(H) 0.00 - 0.40 mg/dL 04/19/2025 1:22 PM EDT [facility] AST 185(H) 13 - 39 U/L 04/19/2025 1:22 PM EDT [facility] ALT 142(H) 7 - 52 U/L 04/19/2025 1:22 PM EDT [facility] Alkaline Phosphatase 57 36 - 125 U/L 04/19/2025 1:22 PM EDT [facility] Total Protein 4.7(L) 6.4 - 8.9 g/dL 04/19/2025 1:22 PM EDT [facility] Albumin 2.9(L) 3.5 - 5.7 g/dL 04/19/2025 1:22 PM EDT [facility] Bilirubin, Indirect 1.29(H) 0.00 - 1.10 mg/dL 04/19/2025 1:22 PM EDT [facility] Plasma 04/19/2025 12:4 1 PM EDT 04/19/2025 12:50 PM EDT Sergey Altman MD LAB BLOOD ORDERABLES Final Result [facility] [address] * (ABNORMAL) CBC (04/19/2025 12:41 PM EDT) WBC 15.6(H) 3.8 - 10.8 10E3/uL 04/19/2025 1:26 PM EDT [facility] RBC 4.24 3.80 - 5.10 10E6/uL 04/19/2025 1:26 PM EDT [facility] Hemoglobin 12.9 11.7 - 15.5 g/dL 04/19/2025 1:26 PM EDT [facility] Hematocrit 37.8 35.0 - 45.0 % 04/19/2025 1:26 PM EDT [facility] MCV 89.2 80.0 - 100.0 fL 04/19/2025 1:26 PM EDT [facility] MCH 30.4 27.0 - 33.0 pg 04/19/2025 1:26 PM EDT [facility] MCHC 34.1 32.0 - 36.0 g/dL 04/19/2025 1:26 PM EDT [facility] RDW 16.4(H) 11.0 - 15.0 % 04/19/2025 1:26 PM EDT [facility] Platelets 95(L) 140 - 400 10E3/uL 04/19/2025 1:26 PM EDT [facility] MPV 9.3 7.5 - 11.5 fL 04/19/2025 1:26 PM EDT [facility] Whole Blood 04/19/2025 12:4 1 PM EDT 04/19/2025 12:50 PM EDT us Sergey Altman MD LAB BLOOD ORDERABLES Final Result [facility] [address] * (ABNORMAL) POC Glucose Monitoring Device (04/19/2025 12:37 PM EDT) POC Glucose Monitoring Device 109(H) 70 - 100 mg/dL 04/19/2025 12:37 PM EDT [facility] Blood 04/19/2025 12:3 7 PM EDT 04/19/2025 12:37 PM EDT us Ludin Jose MD POINT OF CARE TEST ORDERABLES Fi nal Result [facility] [address] [place] [id number], [place] * US Duplex [id number] Comp (04/19/2025 11:03 AM EDT) Anatomical Region [...] EXAM: US ABDOMEN LIMITED EXAM: US DUPLEX [id number] COMPLETE INDICATION: Other - Must specify in [...] EXAM: US ABDOMEN LIMITED EXAM: US DUPLEX [id number] COMPLETE INDICATION: Other - Must specify in [...] 2:31 PM EDT us Jostin Hess MD IMG US ORDERABLES Fin al Result * US [...] EXAM: US ABDOMEN LIMITED EXAM: US DUPLEX [id number] COMPLETE INDICATION: Other - Must specify in [...] EXAM: US ABDOMEN LIMITED EXAM: US DUPLEX [id number] COMPLETE INDICATION: Other - Must specify in [...] Kerr MD at 04/19/2025 2:31 PM EDT Jostin Hess MD [facility] [place] ORDERABLES Fin al Result * (ABNORMAL) Tacrolimus level (04/19/2025 8:37 AM EDT) Tacrolimus (LC-MS) <1.0(L) 3.0 - 15.0 ng/mL 04/19/2025 2:02 PM EDT [facility] Comment:Performed via liquid chromatography tandem mass spectrometry. Detection limit: 1 ng/mL. Individual target concentrations may vary due to target organ and time after transplant. This test has been developed and its performance characteristics determined by [facility] which is certified under the [...] ORDERABLES Final Res ult Performing Organization Address [facility] Co de Phone Number [facility] [address] * Lactic Acid (04/19/2025 8:37 AM EDT) Lactate 1.3 0.5 - 2.2 mmol/L 04/19/2025 9:45 AM EDT [facility] Plasma 04/19/2025 8:37 AM EDT 04/19/2025 8:41 AM EDT Sergey Altman MD LAB BLOOD ORDERABLES Final Result Performing Organization Address [facility] Co de Phone Number [facility] [address] [facility]. [address] * (ABNORMAL) POC Glucose Monitoring Device (04/19/2025 8:33 AM EDT) POC Glucose Monitoring Device 105(H) 70 - 100 mg/dL 04/19/2025 8:35 AM EDT [facility] Blood 04/19/2025 8:33 AM EDT 04/19/2025 8:34 AM EDT Ludin Jose MD POINT OF CARE TEST ORDERABLES Fi nal Result Performing Organization Address [facility] Co de Phone Number [facility] [address] [facility]. [address] * Lactic Acid (04/19/2025 6:33 AM EDT) Lactate 1.4 0.5 - 2.2 mmol/L 04/19/2025 7:55 AM EDT [facility] Plasma 04/19/2025 6:33 AM EDT 04/19/2025 7:34 AM EDT us Sergey Altman MD LAB BLOOD ORDERABLES Final Result [facility] [address] [place] [address], [place] * (ABNORMAL) Renal Function Panel w/EGFR (04/19/2025 6:33 AM EDT) Sodium 139 133 - 146 mmol/L 04/19/2025 8:23 AM EDT [facility] Potassium 5.4(H) 3.5 - 5.3 mmol/L 04/19/2025 8:23 AM EDT [facility] Chloride 111(H) 98 - 110 mmol/L 04/19/2025 8:23 AM EDT [facility] CO2 23 21 - 33 mmol/L 04/19/2025 8:23 AM EDT [facility] Comment:High lactate dehydro genase concentrations in patient samples may cause falsely increased bicarbonate results. If markedly elevated LDH is observed or suspected, please assess results in conjunction with patient`s clinical presentation. In cases of discrepant results, consider evaluating CO2 in with a blood gas order. Anion Gap 5 3 - 16 mmol/L 04/19/2025 8:23 AM EDT [facility] BUN 21 7 - 25 mg/dL 04/19/2025 8:23 AM EDT [facility] Creatinine 0.76 0.60 - 1.30 mg/dL 04/19/2025 8:23 AM EDT [facility] Glucose 118(H) 70 - 100 mg/dL 04/19/2025 8:23 AM EDT [facility] Calcium 7.7(L) 8.6 - 10.3 mg/dL 04/19/2025 8:23 AM EDT [facility] Phosphorus 3.7 2.1 - 4.7 mg/dL 04/19/2025 8:23 AM EDT [facility] Albumin 2.9(L) 3.5 - 5.7 g/dL 04/19/2025 8:23 AM EDT [facility] Osmolality, Calculated 292 278 - 305 mOsm/kg 04/19/2025 8:23 AM EDT [facility] EGFR >90 04/19/2025 8:23 AM EDT [facility] Comment: As of 2021, the [...] Altman MD LAB BLOOD ORDERABLES Final Result [facility] [address] * (ABNORMAL) Protime-INR (04/19/2025 6:33 AM [...] Altman MD LAB BLOOD ORDERABLES Final Result [facility] [address] [facility]. [address] * Magnesium (04/19/2025 6:33 AM EDT) Magnesium 2.2 1.5 - 2.5 mg/dL 04/19/2025 8:23 AM EDT [facility] Plasma 04/19/2025 6:33 AM EDT 04/19/2025 7:34 AM EDT Sergey Altman MD LAB BLOOD ORDERABLES Final Result [facility] [address] [facility]. [address] * (ABNORMAL) Hepatic Function Panel (04/19/2025 6:33 AM EDT) Total Bilirubin 2.7(H) 0.0 - 1.5 mg/dL 04/19/2025 8:23 AM EDT [facility] Bilirubin, Direct 1.01(H) 0.00 - 0.40 mg/dL 04/19/2025 8:23 AM EDT [facility] AST 193(H) 13 - 39 U/L 04/19/2025 8:23 AM EDT [facility] ALT 144(H) 7 - 52 U/L 04/19/2025 8:23 AM EDT [facility] Alkaline Phosphatase 56 36 - 125 U/L 04/19/2025 8:23 AM EDT [facility] Total Protein 4.8(L) 6.4 - 8.9 g/dL 04/19/2025 8:23 AM EDT [facility] Albumin 2.9(L) 3.5 - 5.7 g/dL 04/19/2025 8:23 AM EDT [facility] Bilirubin, Indirect 1.69(H) 0.00 - 1.10 mg/dL 04/19/2025 8:23 AM EDT [facility] Plasma 04/19/2025 6:33 AM EDT 04/19/2025 7:34 AM EDT us Sergey Altman MD LAB BLOOD ORDERABLES Final Result [facility] [address] * (ABNORMAL) CBC (04/19/2025 6:33 AM EDT) WBC 13.7(H) 3.8 - 10.8 10E3/uL 04/19/2025 8:20 AM EDT [facility] RBC 4.31 3.80 - 5.10 10E6/uL 04/19/2025 8:20 AM EDT [facility] Hemoglobin 13.0 11.7 - 15.5 g/dL 04/19/2025 8:20 AM EDT [facility] Hematocrit 38.1 35.0 - 45.0 % 04/19/2025 8:20 AM EDT [facility] MCV 88.3 80.0 - 100.0 fL 04/19/2025 8:20 AM EDT [facility] MCH 30.1 27.0 - 33.0 pg 04/19/2025 8:20 AM EDT [facility] MCHC 34.1 32.0 - 36.0 g/dL 04/19/2025 8:20 AM EDT [facility] RDW 16.3(H) 11.0 - 15.0 % 04/19/2025 8:20 AM EDT [facility] Platelets 90(L) 140 - 400 10E3/uL 04/19/2025 8:20 AM EDT [facility] Comment:Specimen checked for clots. None detected. MPV 9.5 7.5 - 11.5 fL 04/19/2025 8:20 AM EDT [facility] Whole Blood 04/19/2025 6:33 AM EDT 04/19/2025 7:34 AM EDT us Sergey Altman MD LAB BLOOD ORDERABLES Final Result [facility] [address] [facility]. [address] * (ABNORMAL) POC Glucose Monitoring Device (04/19/2025 6:24 AM EDT) POC Glucose Monitoring Device 113(H) 70 - 100 mg/dL 04/19/2025 6:27 AM EDT [facility] Blood 04/19/2025 6:24 AM EDT 04/19/2025 6:27 AM EDT Ludin Jose MD POINT OF CARE TEST ORDERABLES Fi nal Result [facility] [address] * Prepare Cryoprecipitate, 1 Units (04/19/2025 6:16 AM EDT) Product Code A9990C79 [facility] Unit Number [id number] [facility] Dispense Status Presumed Transfused_PT [facility] Blood Expiration Date [facility] Coding System [id number] [facility] Product Code X9974L81 [facility] Unit Number [id number] [facility] Dispense Status Presumed Transfused_PT [facility] Blood Expiration Date [id number] [facility] Coding System [id number] [facility] Blood Bank Product us Mario Chan MD BLOOD BANK PRODUCT ORDERAB LES Final Result [facility] * Prepare Platelets, leukoreduced, 2 Units (04/19/2025 6:16 AM EDT) Product Code BY087W56 [facility] Unit Number [id number] [facility] Dispense Status Presumed Transfused_PT [facility] Blood Expiration Date [id number] [facility] Coding System [id number] [facility] Product Code V0427B31 [facility] Unit Number [id number] [facility] Dispense Status Presumed Transfused_PT [facility] Blood Expiration Date [facility] Coding System [id number] [facility] Blood Bank Product Mario Chan MD BLOOD BANK PRODUCT ORDERAB LES Final Result Performing Organization Address [facility] Co de Phone Number [facility] * Prepare Fresh Frozen Plasma, 5 Units (04/19/2025 6:15 AM EDT) Product Code Z8854B75 [facility] Unit Number [id number] [facility] Dispense Status Presumed Transfused_PT [facility] Blood Expiration Date [facility] Coding System [id number] [facility] Product Code V9534S57 [facility] Unit Number [id number] [facility] Dispense Status Released from Crossmatch_RE [facility] Blood Expiration Date [facility] Coding System [id number] [facility] Product Code I9631S21 [facility] Unit Number [id number] [facility] Dispense Status Presumed Transfused_PT [facility] Blood Expiration Date [facility] Coding System [id number] HCLL Product Code P7665G22 HCLL Unit Number [id number] HCLL Dispense Status Presumed Transfused_PT HCLL Blood Expiration Date HCLL Coding System [id number] HCLL Product Code Q3529Q05 HCLL Unit Number [id number] HCLL Dispense Status Presumed Transfused_PT HCLL Blood Expiration Date [id number] HCLL Coding System [id number] HCLL Blood Bank Product Becky Goodman MD BLOOD BANK PRODUCT ORDERABLES Final Result Performing Organization Address City/[facility]/ZIP Co de Phone Number HCLL * Prepare RBC, leukoreduced, 5 Units (04/19/2025 6:15 AM EDT) Product Code F4201E48 HCLL Unit Number [id number] HCLL Dispense Status Presumed Transfused_PT HCLL Blood Expiration Date HCLL Coding System [id number] HCLL Product Code A3336V18 HCLL Unit Number [id number] HCLL Dispense Status Presumed Transfused_PT HCLL Blood Expiration Date HCLL Coding System PJCJ297 HCLL Product Code X8803I78 HCLL Unit Number [id number] HCLL Dispense Status Released from Crossmatch_RE HCLL Blood Expiration Date HCLL Coding System NGLN470 HCLL Product Code S9989M90 HCLL Unit Number [id number] HCLL Dispense Status Presumed Transfused_PT HCLL Blood Expiration Date HCLL Coding System HTEY384 HCLL Product Code C5974A67 HCLL Unit Number [id number] HCLL Dispense Status Released from Crossmatch_RE HCLL Blood Expiration Date HCLL Coding System [id number] HCLL Blood Bank Product us Becky Goodman MD BLOOD BANK PRODUCT ORDERABLES Final Result Performing Organization Address City/[facility]/ZIP Co de Phone Number HCLL * (ABNORMAL) POC Glucose Monitoring Device (04/19/2025 4:25 AM EDT) POC Glucose Monitoring Device 120(H) 70 - 100 mg/dL 04/19/2025 4:25 AM EDT [facility] Blood 04/19/2025 4:25 AM EDT 04/19/2025 4:25 AM EDT us Ludin Jose MD POINT OF CARE TEST ORDERABLES Fi nal Result [facility] [address] [id number], [place] * POC Glucose Monitoring Device (04/19/2025 4:21 AM EDT) POC Glucose Monitoring Device 89 70 - 100 mg/dL 04/19/2025 4:24 AM EDT [facility] Blood 04/19/2025 4:21 AM EDT 04/19/2025 4:24 AM EDT us Ludin Jose MD POINT OF CARE TEST ORDERABLES Fi nal Result [facility] [address] [place] [address], [place] * X-ray Portable Chest (04/19/2025 2:50 AM [...] High Sensitivity Troponin (04/19/2025 2:27 AM EDT) High Sensitivity Troponin 15(H) 0 - 14 ng/L 04/19/2025 3:04 AM EDT [facility] Serum 04/19/2025 2:27 AM EDT 04/19/2025 2:41 AM EDT Mohan Khan MD LAB BLOOD ORDERABLES Final Result Performing Organization Address [facility]/ZIP Co de Phone Number [facility] [address] [place] [address] * Lactic Acid (04/19/2025 2:27 AM EDT) Pathologist [facility] [place] Lactate 1.5 0.5 - 2.2 mmol/L 04/19/2025 3:01 AM EDT [facility] Plasma 04/19/2025 2:27 AM EDT 04/19/2025 2:41 AM EDT Sergey Altman MD LAB BLOOD ORDERABLES Final Result Performing Organization Address [facility] Co de Phone Number [facility] [address] * ECG 12-lead (MUSE) (04/19/2025 2:21 AM EDT) 04/19/2025 2:21 AM EDT Narrative MUSE - 04/19/2025 11:23 AM EDT Ventricular Rate: 80 BPM Atrial Rate: 80 BPM P-R Interval: 132 ms QRS Duration: 74 ms QT: 426 ms QTc: 491 ms P [place]: 45 degrees R [place]: 13 degrees T [place]: 27 degrees Diagnosis Line: NORMAL SINUS RHYTHM ^ LOW VOLTAGE QRS COMPLEXES ^ PROLONGED QTC ^ ^ Confirmed by Anthony RAMOS MD ([id number]) on 04/19/2025 11:23:28 AM Mohan Khan MD ECG ORDERABLES Final Resul t Performing Organization Address [facility] Co de Phone Number MUSE * (ABNORMAL) POC Glucose Monitoring Device (04/19/2025 2:17 AM EDT) POC Glucose Monitoring Device 120(H) 70 - 100 mg/dL 04/19/2025 2:18 AM EDT [facility] Blood 04/19/2025 2:17 AM EDT 04/19/2025 2:18 AM EDT Ludin Jose MD POINT OF CARE TEST ORDERABLES Fi nal Result Performing Organization Address [facility] de Phone Number [facility] [address] * (ABNORMAL) POC Glucose Monitoring Device (04/19/2025 12:23 AM EDT) POC Glucose Monitoring Device 119(H) 70 - 100 mg/dL 04/19/2025 12:25 AM EDT [facility] Blood 04/19/2025 12:2 3 AM EDT 04/19/2025 12:25 AM EDT Ludin Jose MD POINT OF CARE TEST ORDERABLES Fi nal Result Performing Organization Address [facility] de Phone Number [facility] [address] * Lactic Acid (04/18/2025 11:19 PM EDT) Lactate 1.6 0.5 - 2.2 mmol/L 04/18/2025 11:57 PM EDT [facility] Plasma 04/18/2025 11:1 9 PM EDT 04/18/2025 11:26 PM EDT us Sergey Altman MD LAB BLOOD ORDERABLES Final Result [facility] [address] [place] [address], [place] * (ABNORMAL) Renal Function Panel w/EGFR (04/18/2025 11:19 PM EDT) Sodium 139 133 - 146 mmol/L 04/18/2025 11:57 PM EDT [facility] Potassium 3.7 3.5 - 5.3 mmol/L 04/18/2025 11:57 PM EDT [facility] Chloride 109 98 - 110 mmol/L 04/18/2025 11:57 PM EDT [facility] CO2 23 21 - 33 mmol/L 04/18/2025 11:57 PM EDT [facility] Comment:High lactate dehydro genase concentrations in patient samples may cause falsely increased bicarbonate results. If markedly elevated LDH is observed or suspected, please assess results in conjunction with patient`s clinical presentation. In cases of discrepant results, consider evaluating CO2 in with a blood gas order. Anion Gap 7 3 - 16 mmol/L 04/18/2025 11:57 PM EDT [facility] BUN 14 7 - 25 mg/dL 04/18/2025 11:57 PM EDT [facility] Creatinine 0.65 0.60 - 1.30 mg/dL 04/18/2025 11:57 PM EDT [facility] Glucose 156(H) 70 - 100 mg/dL 04/18/2025 11:57 PM EDT [facility] Calcium 7.8(L) 8.6 - 10.3 mg/dL 04/18/2025 11:57 PM EDT [facility] Phosphorus 3.5 2.1 - 4.7 mg/dL 04/18/2025 11:57 PM EDT [facility] Albumin 2.8(L) 3.5 - 5.7 g/dL 04/18/2025 11:57 PM EDT [facility] Osmolality, Calculated 292 278 - 305 mOsm/kg 04/18/2025 11:57 PM EDT [facility] EGFR >90 04/18/2025 11:57 PM EDT [facility] Comment: As of 2021, the [...] Altman MD LAB BLOOD ORDERABLES Final Result [facility] [address] [id number] * (ABNORMAL) Protime-INR (04/18/2025 11:19 PM EDT) Protime 21.8(H) 12.1 - 15.1 seconds 04/18/2025 11:39 PM EDT [facility] INR 1.8(H) 0.9 - 1.1 04/18/2025 11:39 PM EDT [facility] Comment: RECOMMENDED THERAPEUTIC RANGES USING INR : Stable oral anticoagulant therapy: 2.0 - 3.0 Mechanical prosthetic heart valve: 2.5 - 3.5 Recurrent acute myocardial infarction: 2.5 - 3.5 Plasma 04/18/2025 11:1 9 PM EDT 04/18/2025 11:26 PM EDT Sergey Altman MD LAB BLOOD ORDERABLES Final Result [facility] [address] * Magnesium (04/18/2025 11:19 PM EDT) Magnesium 2.2 1.5 - 2.5 mg/dL 04/18/2025 11:57 PM EDT [facility] Plasma 04/18/2025 11:1 9 PM EDT 04/18/2025 11:26 PM EDT Sergey Altman MD LAB BLOOD ORDERABLES Final Result [facility] [address] [facility] * (ABNORMAL) Hepatic Function Panel (04/18/2025 11:19 PM EDT) Total Bilirubin 4.5(H) 0.0 - 1.5 mg/dL 04/18/2025 11:57 PM EDT [facility] Bilirubin, Direct 2.41(H) 0.00 - 0.40 mg/dL 04/18/2025 11:57 PM EDT [facility] AST 203(H) 13 - 39 U/L 04/18/2025 11:57 PM EDT [facility] ALT 139(H) 7 - 52 U/L 04/18/2025 11:57 PM EDT [facility] Alkaline Phosphatase 55 36 - 125 U/L 04/18/2025 11:57 PM EDT [facility] Total Protein 4.3(L) 6.4 - 8.9 g/dL 04/18/2025 11:57 PM EDT [facility] Albumin 2.8(L) 3.5 - 5.7 g/dL 04/18/2025 11:57 PM EDT [facility] Bilirubin, Indirect 2.09(H) 0.00 - 1.10 mg/dL 04/18/2025 11:57 PM EDT [facility] Plasma 04/18/2025 11:1 9 PM EDT 04/18/2025 11:26 PM EDT us Sergey Altman MD LAB BLOOD ORDERABLES Final Result [facility] [address] * (ABNORMAL) CBC (04/18/2025 11:19 PM EDT) WBC 7.8 3.8 - 10.8 10E3/uL 04/18/2025 11:36 PM EDT [facility] RBC 4.21 3.80 - 5.10 10E6/uL 04/18/2025 11:36 PM EDT [facility] Hemoglobin 12.9 11.7 - 15.5 g/dL 04/18/2025 11:36 PM EDT [facility] Hematocrit 37.1 35.0 - 45.0 % 04/18/2025 11:36 PM EDT [facility] MCV 88.2 80.0 - 100.0 fL 04/18/2025 11:36 PM EDT [facility] MCH 30.7 27.0 - 33.0 pg 04/18/2025 11:36 PM EDT [facility] MCHC 34.8 32.0 - 36.0 g/dL 04/18/2025 11:36 PM EDT [facility] RDW 16.6(H) 11.0 - 15.0 % 04/18/2025 11:36 PM EDT [facility] Platelets 69(L) 140 - 400 10E3/uL 04/18/2025 11:36 PM EDT [facility] MPV 9.1 7.5 - 11.5 fL 04/18/2025 11:36 PM EDT [facility] Whole Blood 04/18/2025 11:1 9 PM EDT 04/18/2025 11:26 PM EDT Sergey Altman MD LAB BLOOD ORDERABLES Final Result [facility] [address] * (ABNORMAL) Blood gas, arterial (04/18/2025 10:46 PM EDT) O2 Sat, Arterial 100 04/18/2025 10:52 PM EDT [facility] FIO2 40 04/18/2025 10:52 PM EDT [facility] pH, Arterial 7.38 7.35 - 7.45 04/18/2025 10:52 PM EDT [facility] pCO2, Arterial 38 35 - 45 mm Hg 04/18/2025 10:52 PM EDT [facility] pO2, Arterial 136(H) 80 - 100 mm Hg 04/18/2025 10:52 PM EDT [facility] HCO3, Arterial 23 22 - 26 mmol/L 04/18/2025 10:52 PM EDT [facility] CO2 Content,Arteri al 24 23 - 27 mmol/L 04/18/2025 10:52 PM EDT [facility] Base Excess, Arterial -2.3(L) -2.0 - 3.0 mmol/L 04/18/2025 10:52 PM EDT [facility] %HBO2, Arterial 96.6 95.0 - 98.0 % 04/18/2025 10:52 PM EDT [facility] Carboxyhemoglo bin, Arterial 1.7 % 04/18/2025 10:52 PM EDT [facility] Comment: CARBOXYHEMOGLOBIN (CO) REFERENCE RANGES: Non-Smokers: <2 % Smokers: <8 % TOXIC: >20 % Methemoglobin, Arterial 1.2 0.0 - 1.5 % 04/18/2025 10:52 PM EDT [facility] Reduced hemoglobin, Arterial 0.5 0.0 - 5.0 % 04/18/2025 10:52 PM EDT [facility] Blood, Arterial 04/18/2025 1 0:46 PM EDT 04/18/2025 10:49 PM EDT us Ludin Jose MD LAB BLOOD ORDERABLES Final Resul t [facility] [address] [facility] [place] [address], [place] * Magnesium, STAT (04/18/2025 10:12 PM EDT) Magnesium 2.2 1.5 - 2.5 mg/dL 04/18/2025 10:51 PM EDT [facility] Plasma 04/18/2025 10:1 2 PM EDT 04/18/2025 10:16 PM EDT us Judith Murcia MD LAB BLOOD ORDERABLES Final Res ult [facility] [address] [place], [place] [address] * (ABNORMAL) Renal Function Panel w/EGFR, STAT (04/18/2025 10:12 PM EDT) Sodium 139 133 - 146 mmol/L 04/18/2025 10:51 PM EDT [facility] Potassium 3.6 3.5 - 5.3 mmol/L 04/18/2025 10:51 PM EDT [facility] Chloride 110 98 - 110 mmol/L 04/18/2025 10:51 PM EDT [facility] CO2 22 21 - 33 mmol/L 04/18/2025 10:51 PM EDT [facility] Comment:High lactate dehydro genase concentrations in patient samples may cause falsely increased bicarbonate results. If markedly elevated LDH is observed or suspected, please assess results in conjunction with patient`s clinical presentation. In cases of discrepant results, consider evaluating CO2 in with a blood gas order. Anion Gap 7 3 - 16 mmol/L 04/18/2025 10:51 PM EDT [facility] BUN 14 7 - 25 mg/dL 04/18/2025 10:51 PM EDT [facility] Creatinine 0.65 0.60 - 1.30 mg/dL 04/18/2025 10:51 PM EDT [facility] Glucose 152(H) 70 - 100 mg/dL 04/18/2025 10:51 PM EDT [facility] Calcium 7.8(L) 8.6 - 10.3 mg/dL 04/18/2025 10:51 PM EDT [facility] Phosphorus 3.5 2.1 - 4.7 mg/dL 04/18/2025 10:51 PM EDT [facility] Albumin 2.8(L) 3.5 - 5.7 g/dL 04/18/2025 10:51 PM EDT [facility] Osmolality, Calculated 291 278 - 305 mOsm/kg 04/18/2025 10:51 PM EDT [facility] EGFR >90 04/18/2025 10:51 PM EDT [facility] Comment: As of 2021, the [...] MD LAB BLOOD ORDERABLES Final Res ult [facility] [address] * (ABNORMAL) POC Glucose Monitoring Device (04/18/2025 10:09 PM EDT) POC Glucose Monitoring Device 145(H) 70 - 100 mg/dL 04/18/2025 10:20 PM EDT [facility] Blood 04/18/2025 10:0 9 PM EDT 04/18/2025 10:20 PM EDT us Ludin Jose MD POINT OF CARE TEST ORDERABLES Fi nal Result [facility] [address] [place] [id number], [place] * XR Portable Feeding Tube Check (04/18/2025 [...] 04/18/2025 10:00 PM EDT Mohan Khan MD IMG DIAGNOSTIC IMAGING ORDE BRITANY Final Result * (ABNORMAL) Lactic Acid (04/18/2025 9:28 PM EDT) Lactate 2.3(H) 0.5 - 2.2 mmol/L 04/18/2025 9:53 PM EDT [facility] Plasma 04/18/2025 9:28 PM EDT 04/18/2025 9:34 PM EDT Jostin Hess MD LAB BLOOD ORDERABLES Final Result Performing Organization Address [facility]/ZIP Co de Phone Number [facility] [address] * (ABNORMAL) POC Glucose Monitoring Device (04/18/2025 9:11 PM EDT) [facility] POC Glucose Monitoring Device 141(H) 70 - 100 mg/dL 04/18/2025 9:18 PM EDT [facility] Blood 04/18/2025 9:11 PM EDT 04/18/2025 9:17 PM EDT Ludin Jose MD POINT OF CARE TEST ORDERABLES Fi nal Result Performing Organization Address [facility]/ZIP Co de Phone Number [facility] [address] * X-ray Portable Chest (04/18/2025 8:26 PM [...] PM EDT Jostin Hess MD IMG DIAGNOSTIC LBIN G ORDERABLES Final Result * (ABNORMAL) POC Glucose Monitoring Device (04/18/2025 8:05 PM EDT) [facility] POC Glucose Monitoring Device 153(H) 70 - 100 mg/dL 04/18/2025 8:07 PM EDT [facility] Blood 04/18/2025 8:05 PM EDT 04/18/2025 8:07 PM EDT Ludin Jose MD POINT OF CARE TEST ORDERABLES Fi nal Result [facility] [address] [facility] [place] [address], [place] * Prepare Fresh Frozen Plasma, 5 Units (04/18/2025 7:53 PM EDT) Product Code S7033M15 HCLL Unit Number [id number] HCLL Dispense Status Released from Crossmatch_RE HCLL Blood Expiration Date HCLL Coding System ZQSH484 HCLL Product Code E1775K44 HCLL Unit Number [id number] HCLL Dispense Status Released from Crossmatch_RE HCLL Blood Expiration Date HCLL Coding System YWMI201 HCLL Product Code C5578K95 HCLL Unit Number [id number] HCLL Dispense Status Released from Crossmatch_RE HCLL Blood Expiration Date HCLL Coding System IWGJ256 HCLL Product Code K3967T69 HCLL Unit Number [id number] HCLL Dispense Status Released from Crossmatch_RE HCLL Blood Expiration Date HCLL Coding System ECRA025 HCLL Product Code A7828Z97 HCLL Unit Number [id number] HCLL Dispense Status Released from Crossmatch_RE HCLL Blood Expiration Date HCLL Coding System [id number] HCLL Blood Bank Product Ludin Jose MD BLOOD BANK PRODUCT ORDERABLES Fi nal Result HCLL * Prepare RBC, leukoreduced, 5 Units (04/18/2025 7:53 PM EDT) Product Code Z3182D28 HCLL Unit Number [id number] HCLL Dispense Status Released from Crossmatch_RE HCLL Blood Expiration Date HCLL Coding System LUKR105 HCLL Product Code G1575R91 HCLL Unit Number [id number] HCLL Dispense Status Released from Crossmatch_RE HCLL Blood Expiration Date HCLL Coding System JITF315 HCLL Product Code N0408R23 HCLL Unit Number [id number] HCLL Dispense Status Released from Crossmatch_RE HCLL Blood Expiration Date HCLL Coding System BHBS705 HCLL Product Code N0293K47 HCLL Unit Number [id number] HCLL Dispense Status Released from Crossmatch_RE HCLL Blood Expiration Date HCLL Coding System CCJR219 HCLL Product Code Y4989H23 HCLL Unit Number [id number] HCLL Dispense Status Released from Crossmatch_RE HCLL Blood Expiration Date HCLL Coding System WROZ432 HCLL Blood Bank Product Ludin Jose MD BLOOD BANK PRODUCT ORDERABLES Fi nal Result Performing Organization Address [facility] Co de Phone Number HCLL * ECG 12 lead (MUSE) (04/18/2025 7:13 PM EDT) 04/18/2025 7:13 PM EDT Narrative MUSE - 04/19/2025 11:23 AM EDT Ventricular Rate: 90 BPM Atrial Rate: 90 BPM P-R Interval: 96 ms QRS Duration: 78 ms QT: 470 ms QTc: 574 ms P [place]: 53 degrees R [place]: 23 degrees T [place]: 49 degrees Diagnosis Line: Critical Test Result: Long QTc ^ SINUS RHYTHM WITH SHORT [place] ^ PROLONGED QT ^ ABNORMAL ECG ^ ^ Confirmed by Anthony RAMOS MD ([facility]) on 04/19/2025 11:23:16 AM Judtih Murcia MD ECG ORDERABLES Final Result Performing Organization Address City/[facility]/ZIP Co de Phone Number MUSE * (ABNORMAL) POC Glucose Monitoring Device (04/18/2025 6:59 PM EDT) [facility] POC Glucose Monitoring Device 155(H) 70 - 100 mg/dL 04/18/2025 7:05 PM EDT [facility] Blood 04/18/2025 6:59 PM EDT 04/18/2025 7:05 PM EDT Ludin Jose MD POINT OF CARE TEST ORDERABLES Fi nal Result [facility] [address] * Calcium Free, Serum (04/18/2025 6:59 PM EDT) Free Calcium, Ser 4.77 4.40 - 5.40 mg/dL 04/18/2025 7:12 PM EDT [facility] Comment:Free calcium levels vary inversely with pH by approximately 5% for each 0.1 unit of pH change. Assay results have been normalized to pH = 7.40. Serum 04/18/2025 6:59 PM EDT 04/18/2025 7:03 PM EDT Narrative [facility] - 04/18/2025 7:12 PM EDT This test has been developed and its performance characteristics determined by [facility] which is certified under the Clinical Laboratory [...] Khan MD LAB BLOOD ORDERABLES Final Result [place] [id number] [address] * (ABNORMAL) TEG-Standard Global Hemostasis (Rapid TEG with Heparin Effect, Contains a Baseline TEG) (04/18/2025 6:59 PM EDT) Citrated Kaolin Reaction Time (TEGHEPARINASE) 5.0 4.6 - 9.1 minutes 04/18/2025 8:06 PM EDT [facility] Citrated Rapid Teg Maximum Amplitude (TEGHEPARINASE) 52.6 52.0 - 70.0 mm 04/18/2025 8:06 PM EDT [facility] Citrated Functional Fibrinogen Maximum Amplitude (TEGHEPARINASE) 15.3 15.0 - 32.0 mm 04/18/2025 8:06 PM EDT [facility] Citrated Kaolin W/Heparinase Reaction Time (TEGHEPARINASE) 5.1 4.3 - 8.3 minutes 04/18/2025 8:06 PM EDT [facility] Citrated Kaolin K-Time (TEGHEPARINASE) 1.7(A) 0.8 - 2.1 minutes 04/18/2025 8:06 PM EDT [facility] Citrated Kaolin Angle (TEGHEPARINASE) 71.3(A) 63.0 - 78.0 degrees 04/18/2025 8:06 PM EDT [facility] Citrated Kaolin Maximum Amplitude (TEGHEPARINASE) 54.5 52.0 - 69.0 mm 04/18/2025 8:06 PM EDT [facility] Citrated Functional Fibrinogen- Fibrinogen Level (TEGHEPARINASE) 279.2 278.0 - 581.0 mg/dL 04/18/2025 8:06 PM EDT [facility] Whole Blood (Citrate) 04/18/2025 6:59 PM EDT 04/18/2025 7:03 PM EDT Jostin Hess MD LAB BLOOD ORDERABLES Final Result Performing Organization Address [facility]/ZIP Co de Phone Number [facility] [address] * (ABNORMAL) Lactic Acid (04/18/2025 6:59 PM EDT) Lactate 3.8(H) 0.5 - 2.2 mmol/L 04/18/2025 10:10 PM EDT [facility] Plasma 04/18/2025 6:59 PM EDT 04/18/2025 7:03 PM EDT Jostin Hess MD LAB BLOOD ORDERABLES Final Result [facility] [address] * Fibrinogen (04/18/2025 6:59 PM EDT) Fibrinogen 249 218 - 406 mg/dL 04/18/2025 7:14 PM EDT [facility] Plasma 04/18/2025 6:59 PM EDT 04/18/2025 7:03 PM EDT Jostin Hess MD LAB BLOOD ORDERABLES Final Result Performing Organization Address [facility] Co de Phone Number [facility] [address] * (ABNORMAL) Protime-INR (04/18/2025 6:59 PM EDT) Protime 21.5(H) 12.1 - 15.1 seconds 04/18/2025 7:44 PM EDT [facility] INR 1.8(H) 0.9 - 1.1 04/18/2025 7:44 PM EDT [facility] Comment: RECOMMENDED THERAPEUTIC RANGES USING INR : Stable oral anticoagulant therapy: 2.0 - 3.0 Mechanical prosthetic heart valve: 2.5 - 3.5 Recurrent acute myocardial infarction: 2.5 - 3.5 Plasma 04/18/2025 6:59 PM EDT 04/18/2025 7:03 PM EDT Jostin Hess MD LAB BLOOD ORDERABLES Final Result Performing Organization Address [facility] Co de Phone Number [facility] [address] * (ABNORMAL) Blood gas, arterial (04/18/2025 6:59 PM EDT) O2 Sat, Arterial 100 04/18/2025 7:06 PM EDT [facility] FIO2 50 04/18/2025 7:06 PM EDT [facility] pH, Arterial 7.40 7.35 - 7.45 04/18/2025 7:06 PM EDT [facility] pCO2, Arterial 33(L) 35 - 45 mm Hg 04/18/2025 7:06 PM EDT [facility] pO2, Arterial 158(H) 80 - 100 mm Hg 04/18/2025 7:06 PM EDT [facility] HCO3, Arterial 22 22 - 26 mmol/L 04/18/2025 7:06 PM EDT [facility] CO2 Content,Arteri al 21(L) 23 - 27 mmol/L 04/18/2025 7:06 PM EDT [facility] Base Excess, Arterial -3.6(L) -2.0 - 3.0 mmol/L 04/18/2025 7:06 PM EDT [facility] %HBO2, Arterial 95.1 95.0 - 98.0 % 04/18/2025 7:06 PM EDT [facility] Carboxyhemoglo bin, Arterial 2.3 % 04/18/2025 7:06 PM EDT [facility] Comment: CARBOXYHEMOGLOBIN (CO) REFERENCE RANGES: Non-Smokers: <2 % Smokers: <8 % TOXIC: >20 % Methemoglobin, Arterial 2.4(H) 0.0 - 1.5 % 04/18/2025 7:06 PM EDT [facility] Reduced hemoglobin, Arterial 0.2 0.0 - 5.0 % 04/18/2025 7:06 PM EDT [facility] Blood, Arterial 04/18/2025 6 :59 PM EDT 04/18/2025 7:03 PM EDT Jostin Hess MD LAB BLOOD ORDERABLES Final Result Performing Organization Address City/[facility]/ZIP Co de Phone Number [facility] [address] * Magnesium (04/18/2025 6:59 PM EDT) Magnesium 2.2 1.5 - 2.5 mg/dL 04/18/2025 10:28 PM EDT [facility] Plasma 04/18/2025 6:59 PM EDT 04/18/2025 7:03 PM EDT Jostin Hess MD LAB BLOOD ORDERABLES Final Result [facility] [address] * (ABNORMAL) Hepatic Function Panel (04/18/2025 6:59 PM EDT) Total Bilirubin 5.1(H) 0.0 - 1.5 mg/dL 04/18/2025 10:28 PM EDT [facility] Bilirubin, Direct 2.86(H) 0.00 - 0.40 mg/dL 04/18/2025 8:44 PM EDT [facility] AST 195(H) 13 - 39 U/L 04/18/2025 8:44 PM EDT [facility] ALT 127(H) 7 - 52 U/L 04/18/2025 10:28 PM EDT [facility] Alkaline Phosphatase 53 36 - 125 U/L 04/18/2025 10:28 PM EDT [facility] Total Protein 4.0(L) 6.4 - 8.9 g/dL 04/18/2025 8:44 PM EDT [facility] Albumin 2.7(L) 3.5 - 5.7 g/dL 04/18/2025 8:44 PM EDT [facility] Bilirubin, Indirect 2.24(H) 0.00 - 1.10 mg/dL 04/18/2025 10:28 PM EDT [facility] [facility] Plasma 04/18/2025 6:59 PM EDT 04/18/2025 7:03 PM EDT us Jostin Hess MD LAB BLOOD ORDERABLES Final Result [facility] [address] * (ABNORMAL) Renal Function Panel w/EGFR (04/18/2025 6:59 PM EDT) Sodium 139 133 - 146 mmol/L 04/18/2025 8:44 PM EDT [facility] Potassium 3.6 3.5 - 5.3 mmol/L 04/18/2025 8:44 PM EDT [facility] Chloride 108 98 - 110 mmol/L 04/18/2025 8:44 PM EDT [facility] CO2 20(L) 21 - 33 mmol/L 04/18/2025 10:28 PM EDT [facility] Comment:High lactate dehydro genase concentrations in patient samples may cause falsely increased bicarbonate results. If markedly elevated LDH is observed or suspected, please assess results in conjunction with patient`s clinical presentation. In cases of discrepant results, consider evaluating CO2 in with a blood gas order. Anion Gap 11 3 - 16 mmol/L 04/18/2025 10:28 PM EDT [facility] BUN 11 7 - 25 mg/dL 04/18/2025 8:44 PM EDT [facility] Creatinine 0.66 0.60 - 1.30 mg/dL 04/18/2025 10:28 PM EDT [facility] Glucose 163(H) 70 - 100 mg/dL 04/18/2025 8:44 PM EDT [facility] Calcium 8.1(L) 8.6 - 10.3 mg/dL 04/18/2025 10:28 PM EDT [facility] Phosphorus 3.7 2.1 - 4.7 mg/dL 04/18/2025 10:28 PM EDT [facility] Albumin 2.7(L) 3.5 - 5.7 g/dL 04/18/2025 8:44 PM EDT [facility] Osmolality, Calculated 291 278 - 305 mOsm/kg 04/18/2025 8:44 PM EDT [facility] EGFR >90 04/18/2025 10:28 PM EDT [facility] Comment: As of 2021, the [...] City/State/[facility] Co de Phone Number [facility] [address] * (ABNORMAL) CBC (04/18/2025 6:59 PM EDT) WBC 8.7 3.8 - 10.8 10E3/uL 04/18/2025 7:16 PM EDT [facility] RBC 3.99 3.80 - 5.10 10E6/uL 04/18/2025 7:16 PM EDT [facility] Hemoglobin 12.3 11.7 - 15.5 g/dL 04/18/2025 7:16 PM EDT [facility] Hematocrit 35.8 35.0 - 45.0 % 04/18/2025 7:16 PM EDT [facility] MCV 89.7 80.0 - 100.0 fL 04/18/2025 7:16 PM EDT [facility] MCH 30.7 27.0 - 33.0 pg 04/18/2025 7:16 PM EDT [facility] MCHC 34.2 32.0 - 36.0 g/dL 04/18/2025 7:16 PM EDT [facility] RDW 16.4(H) 11.0 - 15.0 % 04/18/2025 7:16 PM EDT [facility] Platelets 84(L) 140 - 400 10E3/uL 04/18/2025 7:16 PM EDT [facility] MPV 8.2 7.5 - 11.5 fL 04/18/2025 7:16 PM EDT [facility] Whole Blood 04/18/2025 6:5 9 PM EDT 04/18/2025 7:03 PM EDT Jostin Hess MD LAB BLOOD ORDERABLES Final Result [facility] [address] [facility]. [address] * POC Sample Type (04/18/2025 5:00 PM EDT) POC Sample Type Arterial 04/18/2025 5:34 PM EDT [facility] Blood, Arterial 04/18/2025 5 :00 PM EDT 04/18/2025 5:34 PM EDT Ludin Jose MD POINT OF CARE TEST ORDERABLES Fi nal Result Performing Organization Address [facility] Co de Phone Number [facility] [address] [facility]. [address] * POC Anion Gap (04/18/2025 5:00 PM EDT) POC Anion Gap, Arterial 9 3 - 16 mmol/L 04/18/2025 5:34 PM EDT [facility] Blood, Arterial 04/18/2025 5 :00 PM EDT 04/18/2025 5:34 PM EDT Ludin Jose MD POINT OF CARE TEST ORDERABLES Fi nal Result Performing Organization Address City/[facility]/ZIP Co de Phone Number [facility] [address] [facility]. [address] * POC Chloride (04/18/2025 5:00 PM EDT) POC Chloride 109 98 - 110 mmol/L 04/18/2025 5:34 PM EDT [facility] Blood, Arterial 04/18/2025 5 :00 PM EDT 04/18/2025 5:34 PM EDT Ludin Jose MD POINT OF CARE TEST ORDERABLES Fi nal Result [facility] [address] * (ABNORMAL) POC Hemoglobin (04/18/2025 5:00 PM EDT) POC Hemoglobin 9.6(L) 12.0 - 16.0 g/dL 04/18/2025 5:34 PM EDT [facility] Blood, Arterial 04/18/2025 5 :00 PM EDT 04/18/2025 5:34 PM EDT us Ludin Jose MD POINT OF CARE TEST ORDERABLES Fi nal Result Performing Organization Address City/[facility]/ZIP Co de Phone Number [facility] [address] [place] [address]. [address] * (ABNORMAL) POC hematocrit (04/18/2025 5:00 PM EDT) POC Hematocrit 28.0(L) 35 - 45 % 04/18/2025 5:34 PM EDT [facility] Blood, Arterial 04/18/2025 5 :00 PM EDT 04/18/2025 5:34 PM EDT us Ludin Jose MD POINT OF CARE TEST ORDERABLES Fi nal Result Performing Organization Address [facility] de Phone Number [facility] [address] [place] [address]. [address] * (ABNORMAL) POC Lactate (04/18/2025 5:00 PM EDT) POC Lactate 3.63(H) 0.50 - 2.20 mmol/L 04/18/2025 5:34 PM EDT [facility] Blood, Arterial 04/18/2025 5 :00 PM EDT 04/18/2025 5:34 PM EDT us Ludin Jose MD POINT OF CARE TEST ORDERABLES Fi nal Result Performing Organization Address City/[facility] Co de Phone Number [facility] [address] [place] [address]. [address] * (ABNORMAL) POC Glucose (04/18/2025 5:00 PM EDT) Pathologist [facility] [place] POC Glucose, Arterial 136(H) 70 - 100 mg/dL 04/18/2025 5:34 PM EDT [facility] Blood, Arterial 04/18/2025 5 :00 PM EDT 04/18/2025 5:34 PM EDT us Ludin Jose MD POINT OF CARE TEST ORDERABLES Fi nal Result [facility] [address] [place] [address]. [address] * POC Ionized Calcium (04/18/2025 5:00 PM EDT) [facility] POC Ionized Calcium 5.00 4.50 - 5.30 mg/dL 04/18/2025 5:34 PM EDT [facility] Blood, Arterial 04/18/2025 5 :00 PM EDT 04/18/2025 5:34 PM EDT us Ludin Jose MD POINT OF CARE TEST ORDERABLES Fi nal Result Performing Organization Address [facility] Co de Phone Number [facility] [address] [place] [address]. [address] * POC Potassium (04/18/2025 5:00 PM EDT) [facility] POC Potassium 3.5 3.5 - 5.3 mmol/L 04/18/2025 5:34 PM EDT [facility] Blood, Arterial 04/18/2025 5 :00 PM EDT 04/18/2025 5:34 PM EDT us Ludin Jose MD POINT OF CARE TEST ORDERABLES Fi nal Result Performing Organization Address City/[facility] Co de Phone Number [facility] [address] [facility]. [address] * POC Sodium (04/18/2025 5:00 PM EDT) [facility] POC Sodium 140 136 - 146 mmol/L 04/18/2025 5:34 PM EDT [facility] Blood, Arterial 04/18/2025 5 :00 PM EDT 04/18/2025 5:34 PM EDT Ludin Jose MD POINT OF CARE TEST ORDERABLES Fi nal Result Performing Organization Address City/[facility] Co de Phone Number [facility] [address] [place] [address]. [address] * POC TCO2 (04/18/2025 5:00 PM EDT) POC TCO2, Arterial 24 23 - 27 mmol/L 04/18/2025 5:34 PM EDT [facility] Blood, Arterial 04/18/2025 5 :00 PM EDT 04/18/2025 5:34 PM EDT Ludin Jose MD POINT OF CARE TEST ORDERABLES Fi nal Result Performing Organization Address City/[facility] Co de Phone Number [facility] [address] [facility]. [address] * (ABNORMAL) POC O2 SAT (04/18/2025 5:00 PM EDT) Pathologist [facility] [place] POC O2 Saturation, Arterial 100(H) 95 - 98 % 04/18/2025 5:34 PM EDT [facility] Blood, Arterial 04/18/2025 5 :00 PM EDT 04/18/2025 5:34 PM EDT Ludin Jose MD POINT OF CARE TEST ORDERABLES Fi nal Result Performing Organization Address City/[facility] Co de Phone Number [facility] [address] [facility]. [address] * (ABNORMAL) POC Base Excess (04/18/2025 5:00 PM EDT) POC Base Excess, Arterial -3(L) -2 - 3 mmol/L 04/18/2025 5:34 PM EDT [facility] Blood, Arterial 04/18/2025 5 :00 PM EDT 04/18/2025 5:34 PM EDT us Ludin Jose MD POINT OF CARE TEST ORDERABLES Fi nal Result Performing Organization Address City/[facility]/ZIP Co de Phone Number [facility] [address] [facility]. [address] * POC HCO3 (04/18/2025 5:00 PM EDT) POC HCO3, Arterial 22 22 - 26 mmol/L 04/18/2025 5:34 PM EDT [facility] Blood, Arterial 04/18/2025 5 :00 PM EDT 04/18/2025 5:34 PM EDT us Ludin Jose MD POINT OF CARE TEST ORDERABLES Fi nal Result Performing Organization Address [facility] Co de Phone Number [facility] [address] [place] [address]. [address] * (ABNORMAL) POC PO2 (04/18/2025 5:00 PM EDT) POC pO2, Arterial 178(H) 80 - 100 mm Hg 04/18/2025 5:34 PM EDT [facility] Blood, Arterial 04/18/2025 5 :00 PM EDT 04/18/2025 5:34 PM EDT us Ludin Jose MD POINT OF CARE TEST ORDERABLES Fi nal Result Performing Organization Address City/[facility] Co de Phone Number [facility] [address] [facility]. [address] * POC PCO2 (04/18/2025 5:00 PM EDT) POC pCO2, Arterial 38 35 - 45 mm Hg 04/18/2025 5:34 PM EDT [facility] Blood, Arterial 04/18/2025 5 :00 PM EDT 04/18/2025 5:34 PM EDT us Ludin Jose MD POINT OF CARE TEST ORDERABLES Fi nal Result [facility] [address] [facility]. [address] * POC pH (04/18/2025 5:00 PM EDT) POC pH, Arterial 7.38 7.35 - 7.45 04/18/2025 5:34 PM EDT [facility] Blood, Arterial 04/18/2025 5 :00 PM EDT 04/18/2025 5:34 PM EDT Ludin Jose MD POINT OF CARE TEST ORDERABLES Fi nal Result Performing Organization Address [facility] Co de Phone Number [facility] [address] [facility]. [address] * (ABNORMAL) POC INR (04/18/2025 4:54 PM EDT) Prothrombin Time INR, POC 1.6(H) 0.8 - 1.4 04/19/2025 6:33 AM EDT [facility] Comment: Test results may vary using [...] ORDERABLES Fi nal Result Performing Organization Address City/[facility]/ZIP Co de Phone Number [facility] [address] [facility]. [address] * Transfuse Cryoprecipitate (04/18/2025 4:07 PM EDT) Result [facility] Mario Chan MD NURSING TREATMENT ORDERABL ES - BLOOD ADMIN Final Result * Transfuse Cryoprecipitate (04/18/2025 4:02 PM EDT) Mario Chan MD NURSING TREATMENT ORDERABL ES - BLOOD ADMIN Final Result * POC Sample Type (04/18/2025 4:00 PM EDT) POC Sample Type Arterial 04/18/2025 4:58 PM EDT [facility] Blood, Arterial 04/18/2025 4 :00 PM EDT 04/18/2025 4:58 PM EDT Ludin Jose MD POINT OF CARE TEST ORDERABLES Fi nal Result [facility] [address] [facility]. [address] * POC Anion Gap (04/18/2025 4:00 PM EDT) Pathologist [facility] [place] POC Anion Gap, Arterial 10 3 - 16 mmol/L 04/18/2025 4:58 PM EDT [facility] Blood, Arterial 04/18/2025 4 :00 PM EDT 04/18/2025 4:58 PM EDT Ludin Jose MD POINT OF CARE TEST ORDERABLES Fi nal Result Performing Organization Address City/[facility] Co de Phone Number [facility] [address] [facility]. [address] * POC Chloride (04/18/2025 4:00 PM EDT) Pathologist [facility] [place] POC Chloride 108 98 - 110 mmol/L 04/18/2025 4:58 PM EDT [facility] Blood, Arterial 04/18/2025 4 :00 PM EDT 04/18/2025 4:58 PM EDT Ludin Jose MD POINT OF CARE TEST ORDERABLES Fi nal Result Performing Organization Address City/[facility]/ZIP Co de Phone Number [facility] [address] [facility]. [address] * (ABNORMAL) POC Hemoglobin (04/18/2025 4:00 PM EDT) Pathologist [facility] [place] POC Hemoglobin 9.6(L) 12.0 - 16.0 g/dL 04/18/2025 4:58 PM EDT [facility] Blood, Arterial 04/18/2025 4 :00 PM EDT 04/18/2025 4:58 PM EDT Ludin Jose MD POINT OF CARE TEST ORDERABLES Fi nal Result Performing Organization Address City/[facility] Co de Phone Number [facility] [address] [place] [address] * (ABNORMAL) POC hematocrit (04/18/2025 4:00 PM EDT) [facility] POC Hematocrit 28.0(L) 35 - 45 % 04/18/2025 4:58 PM EDT [facility] Blood, Arterial 04/18/2025 4 :00 PM EDT 04/18/2025 4:58 PM EDT Ludin Jose MD POINT OF CARE TEST ORDERABLES Fi nal Result Performing Organization Address [facility] de Phone Number [address] * (ABNORMAL) POC Lactate (04/18/2025 4:00 PM EDT) [facility] POC Lactate 2.56(H) 0.50 - 2.20 mmol/L 04/18/2025 4:58 PM EDT [facility] Blood, Arterial 04/18/2025 4 :00 PM EDT 04/18/2025 4:58 PM EDT Ludin Jose MD POINT OF CARE TEST ORDERABLES Fi nal Result Performing Organization Address [facility] Co de Phone Number [facility] [address] [place] [address] * (ABNORMAL) POC Glucose (04/18/2025 4:00 PM EDT) Pathologist [facility] [place] POC Glucose, Arterial 133(H) 70 - 100 mg/dL 04/18/2025 4:58 PM EDT [facility] Blood, Arterial 04/18/2025 4 :00 PM EDT 04/18/2025 4:58 PM EDT us Ludin Jose MD POINT OF CARE TEST ORDERABLES Fi nal Result Performing Organization Address City/[facility]/ZIP Co de Phone Number [facility] [address] [place] [address]. [address] * POC Ionized Calcium (04/18/2025 4:00 PM EDT) POC Ionized Calcium 5.20 4.50 - 5.30 mg/dL 04/18/2025 4:58 PM EDT [facility] Blood, Arterial 04/18/2025 4 :00 PM EDT 04/18/2025 4:58 PM EDT us Ludin Jose MD POINT OF CARE TEST ORDERABLES Fi nal Result Performing Organization Address [facility] Co de Phone Number [facility] [address] [facility]. [address] * POC Potassium (04/18/2025 4:00 PM EDT) Pathologist [facility] [place] POC Potassium 3.8 3.5 - 5.3 mmol/L 04/18/2025 4:58 PM EDT [facility] Blood, Arterial 04/18/2025 4 :00 PM EDT 04/18/2025 4:58 PM EDT us Ludin Jose MD POINT OF CARE TEST ORDERABLES Fi nal Result Performing Organization Address City/[facility]/ZIP Co de Phone Number [facility] [address] [place] [address]. [address] * POC Sodium (04/18/2025 4:00 PM EDT) POC Sodium 141 136 - 146 mmol/L 04/18/2025 4:58 PM EDT [facility] Blood, Arterial 04/18/2025 4 :00 PM EDT 04/18/2025 4:58 PM EDT us Ludin Jose MD POINT OF CARE TEST ORDERABLES Fi nal Result [facility] [address] [facility]. [address] * POC TCO2 (04/18/2025 4:00 PM EDT) POC TCO2, Arterial 24 23 - 27 mmol/L 04/18/2025 4:58 PM EDT [facility] Blood, Arterial 04/18/2025 4 :00 PM EDT 04/18/2025 4:58 PM EDT us Ludin Jose MD POINT OF CARE TEST ORDERABLES Fi nal Result Performing Organization Address City/[facility] Co de Phone Number [facility] [address] [facility]. [address] * (ABNORMAL) POC O2 SAT (04/18/2025 4:00 PM EDT) POC O2 Saturation, Arterial 100(H) 95 - 98 % 04/18/2025 4:58 PM EDT [facility] Blood, Arterial 04/18/2025 4 :00 PM EDT 04/18/2025 4:58 PM EDT us Ludin Jose MD POINT OF CARE TEST ORDERABLES Fi nal Result [facility] [address] * (ABNORMAL) POC Base Excess (04/18/2025 4:00 PM EDT) POC Base Excess, Arterial -3(L) -2 - 3 mmol/L 04/18/2025 4:58 PM EDT [facility] Blood, Arterial 04/18/2025 4 :00 PM EDT 04/18/2025 4:58 PM EDT us Ludin Jose MD POINT OF CARE TEST ORDERABLES Fi nal Result Performing Organization Address City/[facility]/ZIP Co de Phone Number [facility] [address] [facility]. [address] * POC HCO3 (04/18/2025 4:00 PM EDT) POC HCO3, Arterial 23 22 - 26 mmol/L 04/18/2025 4:58 PM EDT [facility] Blood, Arterial 04/18/2025 4 :00 PM EDT 04/18/2025 4:58 PM EDT us Ludin Jose MD POINT OF CARE TEST ORDERABLES Fi nal Result Performing Organization Address [facility] Co de Phone Number [facility] [address] [facility]. [address] * (ABNORMAL) POC PO2 (04/18/2025 4:00 PM EDT) POC pO2, Arterial 290(H) 80 - 100 mm Hg 04/18/2025 4:58 PM EDT [facility] Blood, Arterial 04/18/2025 4 :00 PM EDT 04/18/2025 4:58 PM EDT us Ludin Jose MD POINT OF CARE TEST ORDERABLES Fi nal Result Performing Organization Address City/[facility] Co de Phone Number [facility] [address] [place] [address]. [address] * POC PCO2 (04/18/2025 4:00 PM EDT) POC pCO2, Arterial 41 35 - 45 mm Hg 04/18/2025 4:58 PM EDT [facility] Blood, Arterial 04/18/2025 4 :00 PM EDT 04/18/2025 4:58 PM EDT us Ludin Jose MD POINT OF CARE TEST ORDERABLES Fi nal Result Performing Organization Address City/[facility] Co de Phone Number [facility] [address] * POC pH (04/18/2025 4:00 PM EDT) POC pH, Arterial 7.35 7.35 - 7.45 04/18/2025 4:58 PM EDT [facility] Blood, Arterial 04/18/2025 4 :00 PM EDT 04/18/2025 4:58 PM EDT Ludin Jose MD POINT OF CARE TEST ORDERABLES Fi nal Result Performing Organization Address [facility] Co de Phone Number [facility] [address] * POC INR (04/18/2025 3:55 PM EDT) Prothrombin Time INR, POC 1.4 0.8 - 1.4 04/19/2025 6:33 AM EDT [facility] Comment: Test results may vary using different testing platforms. Serial result monitoring should be performed using the same methodology. RECOMMENDED THERAPEUTIC RANGES USING INR : Stable oral anticoagulant therapy: 2.0 - 3.0 Mechanical prosthetic heart valve: 2.5 - 3.5 Recurrent acute myocardial infarction: 2.5 - 3.5 Blood 04/18/2025 3:55 PM EDT 04/19/2025 6:32 AM EDT Ludin Jose MD POINT OF CARE TEST ORDERABLES Fi nal Result Performing Organization Address [facility] Co de Phone Number [facility] [address] [facility]. [address] * POC Sample Type (04/18/2025 3:06 PM EDT) POC Sample Type Arterial 04/18/2025 3:58 PM EDT [facility] Blood, Arterial 04/18/2025 3 :06 PM EDT 04/18/2025 3:58 PM EDT us Ludin Jose MD POINT OF CARE TEST ORDERABLES Fi nal Result [facility] [address] [facility]. [address] * POC Anion Gap (04/18/2025 3:06 PM EDT) POC Anion Gap, Arterial 10 3 - 16 mmol/L 04/18/2025 3:58 PM EDT [facility] Blood, Arterial 04/18/2025 3 :06 PM EDT 04/18/2025 3:58 PM EDT us Ludin Jose MD POINT OF CARE TEST ORDERABLES Fi nal Result Performing Organization Address [facility] Co de Phone Number [facility] [address] [facility]. [address] * POC Chloride (04/18/2025 3:06 PM EDT) POC Chloride 107 98 - 110 mmol/L 04/18/2025 3:58 PM EDT [facility] Blood, Arterial 04/18/2025 3 :06 PM EDT 04/18/2025 3:58 PM EDT us Ludin Jose MD POINT OF CARE TEST ORDERABLES Fi nal Result Performing Organization Address [facility] Co de Phone Number [facility] [address] [facility]. [address] * (ABNORMAL) POC Hemoglobin (04/18/2025 3:06 PM EDT) POC Hemoglobin 9.2(L) 12.0 - 16.0 g/dL 04/18/2025 3:58 PM EDT [facility] Blood, Arterial 04/18/2025 3 :06 PM EDT 04/18/2025 3:58 PM EDT us Ludin Jose MD POINT OF CARE TEST ORDERABLES Fi nal Result [facility] [address] * (ABNORMAL) POC hematocrit (04/18/2025 3:06 PM EDT) POC Hematocrit 27.0(L) 35 - 45 % 04/18/2025 3:58 PM EDT [facility] Blood, Arterial 04/18/2025 3 :06 PM EDT 04/18/2025 3:58 PM EDT Ludin Jose MD POINT OF CARE TEST ORDERABLES Fi nal Result [facility] [address] * (ABNORMAL) POC Lactate (04/18/2025 3:06 PM EDT) POC Lactate 3.12(H) 0.50 - 2.20 mmol/L 04/18/2025 3:58 PM EDT [facility] Blood, Arterial 04/18/2025 3 :06 PM EDT 04/18/2025 3:58 PM EDT Ludin Jose MD POINT OF CARE TEST ORDERABLES Fi nal Result [facility] [address] * (ABNORMAL) POC Glucose (04/18/2025 3:06 PM EDT) POC Glucose, Arterial 144(H) 70 - 100 mg/dL 04/18/2025 3:58 PM EDT [facility] Blood, Arterial 04/18/2025 3 :06 PM EDT 04/18/2025 3:58 PM EDT us Ludin Jose MD POINT OF CARE TEST ORDERABLES Fi nal Result [facility] [address] * POC Ionized Calcium (04/18/2025 3:06 PM EDT) POC Ionized Calcium 4.90 4.50 - 5.30 mg/dL 04/18/2025 3:58 PM EDT [facility] Blood, Arterial 04/18/2025 3 :06 PM EDT 04/18/2025 3:58 PM EDT us Ludin Jose MD POINT OF CARE TEST ORDERABLES Fi nal Result [facility] [address] [place] [address]. [address] * POC Potassium (04/18/2025 3:06 PM EDT) [facility] POC Potassium 4.0 3.5 - 5.3 mmol/L 04/18/2025 3:58 PM EDT [facility] Blood, Arterial 04/18/2025 3 :06 PM EDT 04/18/2025 3:58 PM EDT us Ludin Jose MD POINT OF CARE TEST ORDERABLES Fi nal Result Performing Organization Address [facility] Co de Phone Number [facility] [address] [place] [address]. [address] * POC Sodium (04/18/2025 3:06 PM EDT) [facility] POC Sodium 139 136 - 146 mmol/L 04/18/2025 3:58 PM EDT [facility] Blood, Arterial 04/18/2025 3 :06 PM EDT 04/18/2025 3:58 PM EDT us Ludin Jose MD POINT OF CARE TEST ORDERABLES Fi nal Result Performing Organization Address City/[facility] Co de Phone Number [facility] [address] [place] [address]. [address] * POC TCO2 (04/18/2025 3:06 PM EDT) POC TCO2, Arterial 23 23 - 27 mmol/L 04/18/2025 3:58 PM EDT [facility] Blood, Arterial 04/18/2025 3 :06 PM EDT 04/18/2025 3:58 PM EDT us Ludin Jose MD POINT OF CARE TEST ORDERABLES Fi nal Result [facility] [address] [facility]. [address] * (ABNORMAL) POC O2 SAT (04/18/2025 3:06 PM EDT) POC O2 Saturation, Arterial 99(H) 95 - 98 % 04/18/2025 3:58 PM EDT [facility] Blood, Arterial 04/18/2025 3 :06 PM EDT 04/18/2025 3:58 PM EDT us Ludin Jose MD POINT OF CARE TEST ORDERABLES Fi nal Result Performing Organization Address [facility]/ZIP Co de Phone Number [facility] [address] [facility]. [address] * (ABNORMAL) POC Base Excess (04/18/2025 3:06 PM EDT) POC Base Excess, Arterial -3(L) -2 - 3 mmol/L 04/18/2025 3:58 PM EDT [facility] Blood, Arterial 04/18/2025 3 :06 PM EDT 04/18/2025 3:58 PM EDT us Ludin Jose MD POINT OF CARE TEST ORDERABLES Fi nal Result Performing Organization Address City/[facility]/ZIP Co de Phone Number [facility] [address] [facility]. [address] * POC HCO3 (04/18/2025 3:06 PM EDT) POC HCO3, Arterial 22 22 - 26 mmol/L 04/18/2025 3:58 PM EDT [facility] Blood, Arterial 04/18/2025 3 :06 PM EDT 04/18/2025 3:58 PM EDT us Ludin Jose MD POINT OF CARE TEST ORDERABLES Fi nal Result Performing Organization Address City/[facility]/ZIP Co de Phone Number [facility] [address] [facility]. [address] * (ABNORMAL) POC PO2 (04/18/2025 3:06 PM EDT) POC pO2, Arterial 152(H) 80 - 100 mm Hg 04/18/2025 3:58 PM EDT [facility] Blood, Arterial 04/18/2025 3 :06 PM EDT 04/18/2025 3:58 PM EDT us Ludin Jose MD POINT OF CARE TEST ORDERABLES Fi nal Result Performing Organization Address [facility] Co de Phone Number [facility] [address] [facility] * POC PCO2 (04/18/2025 3:06 PM EDT) POC pCO2, Arterial 36 35 - 45 mm Hg 04/18/2025 3:58 PM EDT [facility] Blood, Arterial 04/18/2025 3 :06 PM EDT 04/18/2025 3:58 PM EDT us Ludin Jose MD POINT OF CARE TEST ORDERABLES Fi nal Result Performing Organization Address City/[facility]/ZIP Co de Phone Number [facility] [address] [facility]. [address] * POC pH (04/18/2025 3:06 PM EDT) POC pH, Arterial 7.39 7.35 - 7.45 04/18/2025 3:58 PM EDT [facility] Blood, Arterial 04/18/2025 3 :06 PM EDT 04/18/2025 3:58 PM EDT Ludin Jose MD POINT OF CARE TEST ORDERABLES Fi nal Result Performing Organization Address City/[facility] de Phone Number [facility] [address] * (ABNORMAL) POC INR (04/18/2025 3:01 PM EDT) Prothrombin Time INR, POC 1.5(H) 0.8 - 1.4 04/19/2025 6:33 AM EDT [facility] Comment: Test results may vary using [...] ORDERABLES Fi nal Result Performing Organization Address [facility] de Phone Number [facility] [address] [facility]. [address] * Transfuse Fresh Frozen Plasma Transfusion Rate: Per dept routine (04/18/2025 2:40 PM EDT) us Ludin Jose MD NURSING TREATMENT ORDERABLES - B LOOD ADMIN Final Result * Transfuse Platelets (04/18/2025 2:37 PM EDT) us Mario Chan MD NURSING TREATMENT ORDERABL ES - BLOOD ADMIN Final Result * POC Sample Type (04/18/2025 2:10 PM EDT) POC Sample Type Arterial 04/18/2025 3:03 PM EDT [facility] Blood, Arterial 04/18/2025 2 :10 PM EDT 04/18/2025 3:03 PM EDT Ludin Jose MD POINT OF CARE TEST ORDERABLES Fi nal Result Performing Organization Address City/[facility] Co de Phone Number [facility] [address] * POC Anion Gap (04/18/2025 2:10 PM EDT) POC Anion Gap, Arterial 10 3 - 16 mmol/L 04/18/2025 3:03 PM EDT [facility] Blood, Arterial 04/18/2025 2 :10 PM EDT 04/18/2025 3:03 PM EDT Ludin Jose MD POINT OF CARE TEST ORDERABLES Fi nal Result Performing Organization Address City/[facility] Co de Phone Number [facility] [address] [place]. [address] * POC Chloride (04/18/2025 2:10 PM EDT) POC Chloride 107 98 - 110 mmol/L 04/18/2025 3:03 PM EDT [facility] Blood, Arterial 04/18/2025 2 :10 PM EDT 04/18/2025 3:03 PM EDT Ludin Jose MD POINT OF CARE TEST ORDERABLES Fi nal Result Performing Organization Address [facility] Co de Phone Number [facility] [address] [facility]. [address] * (ABNORMAL) POC Hemoglobin (04/18/2025 2:10 PM EDT) POC Hemoglobin 9.0(L) 12.0 - 16.0 g/dL 04/18/2025 3:03 PM EDT [facility] Blood, Arterial 04/18/2025 2 :10 PM EDT 04/18/2025 3:03 PM EDT us Ludin Jose MD POINT OF CARE TEST ORDERABLES Fi nal Result Performing Organization Address City/[facility]/ZIP Co de Phone Number [facility] [address] [facility] * (ABNORMAL) POC hematocrit (04/18/2025 2:10 PM EDT) POC Hematocrit 26.0(L) 35 - 45 % 04/18/2025 3:03 PM EDT [facility] Blood, Arterial 04/18/2025 2 :10 PM EDT 04/18/2025 3:03 PM EDT us Ludin Jose MD POINT OF CARE TEST ORDERABLES Fi nal Result Performing Organization Address City/[facility]/ZIP Co de Phone Number [facility] [address] [facility]. [address] * (ABNORMAL) POC Lactate (04/18/2025 2:10 PM EDT) POC Lactate 2.87(H) 0.50 - 2.20 mmol/L 04/18/2025 3:03 PM EDT [facility] Blood, Arterial 04/18/2025 2 :10 PM EDT 04/18/2025 3:03 PM EDT us Ludin Jose MD POINT OF CARE TEST ORDERABLES Fi nal Result Performing Organization Address [facility] Co de Phone Number [facility] [address] [facility]. [address] * (ABNORMAL) POC Glucose (04/18/2025 2:10 PM EDT) POC Glucose, Arterial 158(H) 70 - 100 mg/dL 04/18/2025 3:03 PM EDT [facility] Blood, Arterial 04/18/2025 2 :10 PM EDT 04/18/2025 3:03 PM EDT us Ludin Jose MD POINT OF CARE TEST ORDERABLES Fi nal Result Performing Organization Address City/[facility] Co de Phone Number [facility] [address] * (ABNORMAL) POC Ionized Calcium (04/18/2025 2:10 PM EDT) POC Ionized Calcium 5.40(H) 4.50 - 5.30 mg/dL 04/18/2025 3:03 PM EDT [facility] Blood, Arterial 04/18/2025 2 :10 PM EDT 04/18/2025 3:03 PM EDT Ludin Jose MD POINT OF CARE TEST ORDERABLES Fi nal Result [facility] [address] [place] [address]. [address] * POC Potassium (04/18/2025 2:10 PM EDT) [facility] POC Potassium 4.2 3.5 - 5.3 mmol/L 04/18/2025 3:03 PM EDT [facility] Blood, Arterial 04/18/2025 2 :10 PM EDT 04/18/2025 3:03 PM EDT Ludin Jose MD POINT OF CARE TEST ORDERABLES Fi nal Result Performing Organization Address [facility] Co de Phone Number [facility] [address] [facility]. [address] * POC Sodium (04/18/2025 2:10 PM EDT) [facility] POC Sodium 139 136 - 146 mmol/L 04/18/2025 3:03 PM EDT [facility] Blood, Arterial 04/18/2025 2 :10 PM EDT 04/18/2025 3:03 PM EDT Ludin Jose MD POINT OF CARE TEST ORDERABLES Fi nal Result Performing Organization Address City/[facility] Co de Phone Number [facility] [address] [place] [address]. [address] * POC TCO2 (04/18/2025 2:10 PM EDT) Pathologist [facility] [place] POC TCO2, Arterial 23 23 - 27 mmol/L 04/18/2025 3:03 PM EDT [facility] Blood, Arterial 04/18/2025 2 :10 PM EDT 04/18/2025 3:03 PM EDT us Ludin Jose MD POINT OF CARE TEST ORDERABLES Fi nal Result Performing Organization Address City/[facility]/ZIP Co de Phone Number [facility] [address] [facility] * (ABNORMAL) POC O2 SAT (04/18/2025 2:10 PM EDT) POC O2 Saturation, Arterial 100(H) 95 - 98 % 04/18/2025 3:03 PM EDT [facility] Blood, Arterial 04/18/2025 2 :10 PM EDT 04/18/2025 3:03 PM EDT us Ludin Jose MD POINT OF CARE TEST ORDERABLES Fi nal Result Performing Organization Address [facility] Co de Phone Number [facility] [address] [facility] * POC Base Excess (04/18/2025 2:10 PM EDT) POC Base Excess, Arterial -2 -2 - 3 mmol/L 04/18/2025 3:03 PM EDT [facility] Blood, Arterial 04/18/2025 2 :10 PM EDT 04/18/2025 3:03 PM EDT us Ludin Jose MD POINT OF CARE TEST ORDERABLES Fi nal Result Performing Organization Address City/[facility]/ZIP Co de Phone Number [facility] [address] [facility] * POC HCO3 (04/18/2025 2:10 PM EDT) POC HCO3, Arterial 22 22 - 26 mmol/L 04/18/2025 3:03 PM EDT [facility] Blood, Arterial 04/18/2025 2 :10 PM EDT 04/18/2025 3:03 PM EDT us Ludin Jose MD POINT OF CARE TEST ORDERABLES Fi nal Result Performing Organization Address [facility] de Phone Number [facility] [address] [place] [address]. [address] * (ABNORMAL) POC PO2 (04/18/2025 2:10 PM EDT) POC pO2, Arterial 175(H) 80 - 100 mm Hg 04/18/2025 3:03 PM EDT [facility] Blood, Arterial 04/18/2025 2 :10 PM EDT 04/18/2025 3:03 PM EDT us Ludin Jose MD POINT OF CARE TEST ORDERABLES Fi nal Result Performing Organization Address [facility] de Phone Number [facility] [address] [place] [address]. [address] * (ABNORMAL) POC PCO2 (04/18/2025 2:10 PM EDT) POC pCO2, Arterial 33(L) 35 - 45 mm Hg 04/18/2025 3:03 PM EDT [facility] Blood, Arterial 04/18/2025 2 :10 PM EDT 04/18/2025 3:03 PM EDT us Ludin Jose MD POINT OF CARE TEST ORDERABLES Fi nal Result Performing Organization Address [facility] de Phone Number [facility] [address] [place] [address]. [address] * POC pH (04/18/2025 2:10 PM EDT) POC pH, Arterial 7.43 7.35 - 7.45 04/18/2025 3:03 PM EDT [facility] Blood, Arterial 04/18/2025 2 :10 PM EDT 04/18/2025 3:03 PM EDT us Ludin Jose MD POINT OF CARE TEST ORDERABLES Fi nal Result Performing Organization Address City/[facility]/ZIP Co de Phone Number [facility] [address] [facility]. [address] * (ABNORMAL) POC INR (04/18/2025 2:05 PM EDT) Prothrombin Time INR, POC 2.2(H) 0.8 - 1.4 04/19/2025 6:33 AM EDT [facility] Comment: Test results may vary using different testing platforms. Serial result monitoring should be performed using the same methodology. RECOMMENDED THERAPEUTIC RANGES USING INR : Stable oral anticoagulant therapy: 2.0 - 3.0 Mechanical prosthetic heart valve: 2.5 - 3.5 Recurrent acute myocardial infarction: 2.5 - 3.5 Blood 04/18/2025 2:05 PM EDT 04/19/2025 6:32 AM EDT Ludin Jose MD POINT OF CARE TEST ORDERABLES Fi nal Result Performing Organization Address [facility] Co de Phone Number [facility] [address] [facility] * Transfuse Platelets (04/18/2025 2:00 PM EDT) Result [facility] Mario Chan MD NURSING TREATMENT ORDERABL ES - BLOOD ADMIN Final Result * (ABNORMAL) Fibrinogen (04/18/2025 1:52 PM EDT) Fibrinogen 130(L) 218 - 406 mg/dL 04/18/2025 2:30 PM EDT [facility] Plasma 04/18/2025 1:52 PM EDT 04/18/2025 2:03 PM EDT Result [facility] Mario Chan MD LAB BLOOD ORDERABLES Final Result Performing Organization Address City/[facility]/ZIP Co de Phone Number [facility] [address] [facility] * (ABNORMAL) TEG-Bypass/ECMO/Liver HN (Factor function, Platelet/Fibrin Clot Strength w/Clot Breakdown, Heparinase In All Channels) (04/18/2025 1:52 PM EDT) Citrated Kaolin Reaction Time (TEGECMOLIVER) Unable to reach an endpoint / Test Timed Out 4.6 - 9.1 minutes 04/18/2025 3:30 PM EDT [facility] Citrated Kaolin W/Heparinase Reaction Time (TEGECMOLIVER) 7.3 4.3 - 8.3 minutes 04/18/2025 3:30 PM EDT [facility] Citrated Kaolin Maximum Amplitude (TEGECMOLIVER) Unable to reach an endpoint / Test Timed Out 52.0 - 69.0 mm 04/18/2025 3:30 PM EDT [facility] Citrated Functional Fibrinogen W/Heparinase Maximum Amplitude(TEGE CMOLIVER) 11.0(L) 15.0 - 34.0 mm 04/18/2025 3:30 PM EDT [facility] Citrated Rapid Teg W/Heparinase Maximum Amplitude (TEGECMOLIVER) 43.2(L) 53.0 - 69.0 mm 04/18/2025 3:30 PM EDT [facility] Citrated Kaolin w/Heparinase Percent Lysis (TEGECMOLIVER) 0.0 0.0 - 3.2 % 04/18/2025 3:30 PM EDT [facility] Whole Blood (Citrate) 04/18/2025 1:52 PM EDT 04/18/2025 2:03 PM EDT Mario Chan MD LAB BLOOD ORDERABLES Final Result Performing Organization Address City/State/[facility] Co de Phone Number [facility] [address] * (ABNORMAL) CBC, STAT (04/18/2025 1:52 PM EDT) WBC 7.2 3.8 - 10.8 10E3/uL 04/18/2025 2:33 PM EDT [facility] RBC 3.33(L) 3.80 - 5.10 10E6/uL 04/18/2025 2:33 PM EDT [facility] Hemoglobin 10.2(L) 11.7 - 15.5 g/dL 04/18/2025 2:33 PM EDT [facility] Hematocrit 29.6(L) 35.0 - 45.0 % 04/18/2025 2:33 PM EDT [facility] MCV 89.2 80.0 - 100.0 fL 04/18/2025 2:33 PM EDT [facility] MCH 30.6 27.0 - 33.0 pg 04/18/2025 2:33 PM EDT [facility] MCHC 34.3 32.0 - 36.0 g/dL 04/18/2025 2:33 PM EDT [facility] RDW 16.0(H) 11.0 - 15.0 % 04/18/2025 2:33 PM EDT [facility] Platelets 80(L) 140 - 400 10E3/uL 04/18/2025 2:33 PM EDT [facility] MPV 9.4 7.5 - 11.5 fL 04/18/2025 2:33 PM EDT [facility] Whole Blood 04/18/2025 1:52 PM EDT 04/18/2025 2:03 PM EDT Mario Chan MD LAB BLOOD ORDERABLES Final Result [facility] [address] * (ABNORMAL) Protime-INR, STAT (04/18/2025 1:52 PM EDT) Protime 23.1(H) 12.1 - 15.1 seconds 04/18/2025 2:25 PM EDT [facility] INR 1.9(H) 0.9 - 1.1 04/18/2025 2:25 PM EDT [facility] Comment: RECOMMENDED THERAPEUTIC RANGES USING INR : Stable oral anticoagulant therapy: 2.0 - 3.0 Mechanical prosthetic heart valve: 2.5 - 3.5 Recurrent acute myocardial infarction: 2.5 - 3.5 Plasma 04/18/2025 1:52 PM EDT 04/18/2025 2:03 PM EDT Mario Chan MD LAB BLOOD ORDERABLES Final Result [facility] [address] * POC Sample Type (04/18/2025 1:39 PM EDT) POC Sample Type Arterial 04/18/2025 2:07 PM EDT [facility] Blood, Arterial 04/18/2025 1 :39 PM EDT 04/18/2025 2:07 PM EDT Ludin Jose MD POINT OF CARE TEST ORDERABLES Fi nal Result Performing Organization Address City/[facility] Co de Phone Number [facility] [address] [place] [facility]. [address] * POC Anion Gap (04/18/2025 1:39 PM EDT) POC Anion Gap, Arterial 14 3 - 16 mmol/L 04/18/2025 2:07 PM EDT [facility] Blood, Arterial 04/18/2025 1 :39 PM EDT 04/18/2025 2:07 PM EDT Ludin Jose MD POINT OF CARE TEST ORDERABLES Fi nal Result Performing Organization Address City/[facility]/ZIP Co de Phone Number [facility] [address] [facility]. [address] * POC Chloride (04/18/2025 1:39 PM EDT) POC Chloride 106 98 - 110 mmol/L 04/18/2025 2:07 PM EDT [facility] Blood, Arterial 04/18/2025 1 :39 PM EDT 04/18/2025 2:07 PM EDT Ludin Jose MD POINT OF CARE TEST ORDERABLES Fi nal Result [facility] [address] [facility]. [address] * (ABNORMAL) POC Hemoglobin (04/18/2025 1:39 PM EDT) POC Hemoglobin 7.8(L) 12.0 - 16.0 g/dL 04/18/2025 2:07 PM EDT [facility] Blood, Arterial 04/18/2025 1 :39 PM EDT 04/18/2025 2:07 PM EDT us Ludin Jose MD POINT OF CARE TEST ORDERABLES Fi nal Result Performing Organization Address City/[facility] Co de Phone Number [facility] [address] [facility]. [address] * (ABNORMAL) POC hematocrit (04/18/2025 1:39 PM EDT) Pathologist [facility] [place] POC Hematocrit 23.0(L) 35 - 45 % 04/18/2025 2:07 PM EDT [facility] Blood, Arterial 04/18/2025 1 :39 PM EDT 04/18/2025 2:07 PM EDT us Ludin Jose MD POINT OF CARE TEST ORDERABLES Fi nal Result Performing Organization Address [facility] Co de Phone Number [facility] [address] [facility] * (ABNORMAL) POC Lactate (04/18/2025 1:39 PM EDT) Pathologist [facility] [place] POC Lactate 2.42(H) 0.50 - 2.20 mmol/L 04/18/2025 2:07 PM EDT [facility] Blood, Arterial 04/18/2025 1 :39 PM EDT 04/18/2025 2:07 PM EDT us Ludin Jose MD POINT OF CARE TEST ORDERABLES Fi nal Result Performing Organization Address City/[facility] Co de Phone Number [facility] [address] [facility] * (ABNORMAL) POC Glucose (04/18/2025 1:39 PM EDT) [facility] POC Glucose, Arterial 124(H) 70 - 100 mg/dL 04/18/2025 2:07 PM EDT [facility] Blood, Arterial 04/18/2025 1 :39 PM EDT 04/18/2025 2:07 PM EDT us Ludin Jose MD POINT OF CARE TEST ORDERABLES Fi nal Result Performing Organization Address City/[facility] Co de Phone Number [facility] [address] [facility] * (ABNORMAL) POC Ionized Calcium (04/18/2025 1:39 PM EDT) [facility] POC Ionized Calcium 4.10(L) 4.50 - 5.30 mg/dL 04/18/2025 2:07 PM EDT [facility] Blood, Arterial 04/18/2025 1 :39 PM EDT 04/18/2025 2:07 PM EDT us Ludin Jose MD POINT OF CARE TEST ORDERABLES Fi nal Result Performing Organization Address [facility] de Phone Number [facility] [address] [facility] * POC Potassium (04/18/2025 1:39 PM EDT) [facility] POC Potassium 4.4 3.5 - 5.3 mmol/L 04/18/2025 2:07 PM EDT [facility] Blood, Arterial 04/18/2025 1 :39 PM EDT 04/18/2025 2:07 PM EDT us Ludin Jose MD POINT OF CARE TEST ORDERABLES Fi nal Result Performing Organization Address City/[facility] Co de Phone Number [facility] [address] [facility] * POC Sodium (04/18/2025 1:39 PM EDT) [facility] POC Sodium 141 136 - 146 mmol/L 04/18/2025 2:07 PM EDT [facility] Blood, Arterial 04/18/2025 1 :39 PM EDT 04/18/2025 2:07 PM EDT us Ludin Jose MD POINT OF CARE TEST ORDERABLES Fi nal Result [facility] [address] [facility] * (ABNORMAL) POC TCO2 (04/18/2025 1:39 PM EDT) Pathologist [facility] [place] POC TCO2, Arterial 22(L) 23 - 27 mmol/L 04/18/2025 2:07 PM EDT [facility] Blood, Arterial 04/18/2025 1 :39 PM EDT 04/18/2025 2:07 PM EDT us Ludin Jose MD POINT OF CARE TEST ORDERABLES Fi nal Result Performing Organization Address [facility] Co de Phone Number [facility] [address] [facility] * (ABNORMAL) POC O2 SAT (04/18/2025 1:39 PM EDT) Pathologist [facility] [place] POC O2 Saturation, Arterial 100(H) 95 - 98 % 04/18/2025 2:07 PM EDT [facility] Blood, Arterial 04/18/2025 1 :39 PM EDT 04/18/2025 2:07 PM EDT us Ludin Jose MD POINT OF CARE TEST ORDERABLES Fi nal Result Performing Organization Address City/[facility]/ZIP Co de Phone Number [facility] [address] [facility] * (ABNORMAL) POC Base Excess (04/18/2025 1:39 PM EDT) Pathologist [facility] [place] POC Base Excess, Arterial -3(L) -2 - 3 mmol/L 04/18/2025 2:07 PM EDT [facility] Blood, Arterial 04/18/2025 1 :39 PM EDT 04/18/2025 2:07 PM EDT us Ludin Jose MD POINT OF CARE TEST ORDERABLES Fi nal Result Performing Organization Address City/[facility] Co de Phone Number [facility] [address] [place] [address]. [address] * (ABNORMAL) POC HCO3 (04/18/2025 1:39 PM EDT) POC HCO3, Arterial 21(L) 22 - 26 mmol/L 04/18/2025 2:07 PM EDT [facility] Blood, Arterial 04/18/2025 1 :39 PM EDT 04/18/2025 2:07 PM EDT us Ludin Jose MD POINT OF CARE TEST ORDERABLES Fi nal Result Performing Organization Address [facility] Co de Phone Number [facility] [address] [facility] * (ABNORMAL) POC PO2 (04/18/2025 1:39 PM EDT) POC pO2, Arterial 426(H) 80 - 100 mm Hg 04/18/2025 2:07 PM EDT [facility] Blood, Arterial 04/18/2025 1 :39 PM EDT 04/18/2025 2:07 PM EDT us Ludin Jose MD POINT OF CARE TEST ORDERABLES Fi nal Result Performing Organization Address City/[facility] Co de Phone Number [facility] [address] [place] [address]. [address] * (ABNORMAL) POC PCO2 (04/18/2025 1:39 PM EDT) POC pCO2, Arterial 34(L) 35 - 45 mm Hg 04/18/2025 2:07 PM EDT [facility] Blood, Arterial 04/18/2025 1 :39 PM EDT 04/18/2025 2:07 PM EDT us Ludin Jose MD POINT OF CARE TEST ORDERABLES Fi nal Result Performing Organization Address City/[facility] Co de Phone Number [facility] [address] [facility] * POC pH (04/18/2025 1:39 PM EDT) POC pH, Arterial 7.40 7.35 - 7.45 04/18/2025 2:07 PM EDT [facility] Blood, Arterial 04/18/2025 1 :39 PM EDT 04/18/2025 2:07 PM EDT us Ludin Jose MD POINT OF CARE TEST ORDERABLES Fi nal Result Performing Organization Address [facility] de Phone Number [facility] [address] [facility]. [address] * (ABNORMAL) POC INR (04/18/2025 1:33 PM EDT) Prothrombin Time INR, POC 2.4(H) 0.8 - 1.4 04/19/2025 6:33 AM EDT [facility] Comment: Test results may vary using different testing platforms. Serial result monitoring should be performed using the same methodology. RECOMMENDED THERAPEUTIC RANGES USING INR : Stable oral anticoagulant therapy: 2.0 - 3.0 Mechanical prosthetic heart valve: 2.5 - 3.5 Recurrent acute myocardial infarction: 2.5 - 3.5 Blood 04/18/2025 1:33 PM EDT 04/19/2025 6:32 AM EDT Result Ashutosh Jose MD POINT OF CARE TEST ORDERABLES Fi nal Result Performing Organization Address [facility] Co de Phone Number [facility] [address] [facility]. [address] * Transfuse Fresh Frozen Plasma Transfusion [...] POC Sample Type (04/18/2025 12:56 PM EDT) Pathologist [facility] [place] POC Sample Type Arterial 04/18/2025 1:37 PM EDT [facility] Blood, Arterial 04/18/2025 1 2:56 PM EDT 04/18/2025 1:37 PM EDT us Ludin Jose MD POINT OF CARE TEST ORDERABLES Fi nal Result Performing Organization Address City/[facility] Co de Phone Number [facility] [address] [place] [address] * POC Anion Gap (04/18/2025 12:56 PM EDT) Pathologist [facility] [place] POC Anion Gap, Arterial 9 3 - 16 mmol/L 04/18/2025 1:37 PM EDT [facility] Blood, Arterial 04/18/2025 1 2:56 PM EDT 04/18/2025 1:37 PM EDT us Ludin Jose MD POINT OF CARE TEST ORDERABLES Fi nal Result [facility] [address] * POC Chloride (04/18/2025 12:56 PM EDT) Pathologist [facility] [place] POC Chloride 110 98 - 110 mmol/L 04/18/2025 1:37 PM EDT [facility] Blood, Arterial 04/18/2025 1 2:56 PM EDT 04/18/2025 1:37 PM EDT us Ludin Jose MD POINT OF CARE TEST ORDERABLES Fi nal Result [facility] [address] [facility]. [address] * (ABNORMAL) POC Hemoglobin (04/18/2025 12:56 PM EDT) POC Hemoglobin 9.7(L) 12.0 - 16.0 g/dL 04/18/2025 1:37 PM EDT [facility] Blood, Arterial 04/18/2025 1 2:56 PM EDT 04/18/2025 1:37 PM EDT us Ludin Jose MD POINT OF CARE TEST ORDERABLES Fi nal Result Performing Organization Address [facility] Co de Phone Number [facility] [address] [facility]. [address] * (ABNORMAL) POC hematocrit (04/18/2025 12:56 PM EDT) Pathologist [facility] [place] POC Hematocrit 29.0(L) 35 - 45 % 04/18/2025 1:37 PM EDT [facility] Blood, Arterial 04/18/2025 1 2:56 PM EDT 04/18/2025 1:37 PM EDT us Ludin Jose MD POINT OF CARE TEST ORDERABLES Fi nal Result Performing Organization Address City/[facility]/ZIP Co de Phone Number [facility] [address] [facility]. [address] * POC Lactate (04/18/2025 12:56 PM EDT) Pathologist [facility] [place] POC Lactate 1.89 0.50 - 2.20 mmol/L 04/18/2025 1:37 PM EDT [facility] Blood, Arterial 04/18/2025 1 2:56 PM EDT 04/18/2025 1:37 PM EDT us Ludin Jose MD POINT OF CARE TEST ORDERABLES Fi nal Result [facility] [address] [facility] * (ABNORMAL) POC Glucose (04/18/2025 12:56 PM EDT) POC Glucose, Arterial 102(H) 70 - 100 mg/dL 04/18/2025 1:37 PM EDT [facility] Blood, Arterial 04/18/2025 1 2:56 PM EDT 04/18/2025 1:37 PM EDT us Ludin Jose MD POINT OF CARE TEST ORDERABLES Fi nal Result Performing Organization Address [facility] Co de Phone Number [facility] [address] [facility]. [address] * POC Ionized Calcium (04/18/2025 12:56 PM EDT) Pathologist [facility] [place] POC Ionized Calcium 4.90 4.50 - 5.30 mg/dL 04/18/2025 1:37 PM EDT [facility] Blood, Arterial 04/18/2025 1 2:56 PM EDT 04/18/2025 1:37 PM EDT us Ludin Jose MD POINT OF CARE TEST ORDERABLES Fi nal Result Performing Organization Address City/[facility] Co de Phone Number [facility] [address] [facility] * POC Potassium (04/18/2025 12:56 PM EDT) Pathologist [facility] [place] POC Potassium 4.4 3.5 - 5.3 mmol/L 04/18/2025 1:37 PM EDT [facility] Blood, Arterial 04/18/2025 1 2:56 PM EDT 04/18/2025 1:37 PM EDT us Ludin Jose MD POINT OF CARE TEST ORDERABLES Fi nal Result Performing Organization Address [facility] Co de Phone Number [facility] [address] [place] [address]. [address] * POC Sodium (04/18/2025 12:56 PM EDT) POC Sodium 139 136 - 146 mmol/L 04/18/2025 1:37 PM EDT [facility] Blood, Arterial 04/18/2025 1 2:56 PM EDT 04/18/2025 1:37 PM EDT us Ludin Jose MD POINT OF CARE TEST ORDERABLES Fi nal Result Performing Organization Address [facility] de Phone Number [facility] [address] [place] [address]. [address] * (ABNORMAL) POC TCO2 (04/18/2025 12:56 PM EDT) POC TCO2, Arterial 21(L) 23 - 27 mmol/L 04/18/2025 1:37 PM EDT [facility] Blood, Arterial 04/18/2025 1 2:56 PM EDT 04/18/2025 1:37 PM EDT us Ludin Jose MD POINT OF CARE TEST ORDERABLES Fi nal Result Performing Organization Address [facility] Co de Phone Number [facility] [address] [place] [address]. [address] * (ABNORMAL) POC O2 SAT (04/18/2025 12:56 PM EDT) POC O2 Saturation, Arterial 100(H) 95 - 98 % 04/18/2025 1:37 PM EDT [facility] Blood, Arterial 04/18/2025 1 2:56 PM EDT 04/18/2025 1:37 PM EDT us Ludin Jose MD POINT OF CARE TEST ORDERABLES Fi nal Result Performing Organization Address [facility] de Phone Number [facility] [address] [facility]. [address] * (ABNORMAL) POC Base Excess (04/18/2025 12:56 PM EDT) POC Base Excess, Arterial -5(L) -2 - 3 mmol/L 04/18/2025 1:37 PM EDT [facility] Blood, Arterial 04/18/2025 1 2:56 PM EDT 04/18/2025 1:37 PM EDT Ludin Jose MD POINT OF CARE TEST ORDERABLES Fi nal Result Performing Organization Address [facility] de Phone Number [facility] [address] [facility]. [address] * (ABNORMAL) POC HCO3 (04/18/2025 12:56 PM EDT) POC HCO3, Arterial 20(L) 22 - 26 mmol/L 04/18/2025 1:37 PM EDT [facility] Blood, Arterial 04/18/2025 1 2:56 PM EDT 04/18/2025 1:37 PM EDT Ludin Jose MD POINT OF CARE TEST ORDERABLES Fi nal Result Performing Organization Address [facility] de Phone Number [facility] [address] [facility]. [address] * (ABNORMAL) POC PO2 (04/18/2025 12:56 PM EDT) POC pO2, Arterial 195(H) 80 - 100 mm Hg 04/18/2025 1:37 PM EDT [facility] Blood, Arterial 04/18/2025 1 2:56 PM EDT 04/18/2025 1:37 PM EDT Ludin Jose MD POINT OF CARE TEST ORDERABLES Fi nal Result Performing Organization Address [facility] Co de Phone Number [facility] [address] [facility]. [address] * POC PCO2 (04/18/2025 12:56 PM EDT) POC pCO2, Arterial 36 35 - 45 mm Hg 04/18/2025 1:37 PM EDT [facility] Blood, Arterial 04/18/2025 1 2:56 PM EDT 04/18/2025 1:37 PM EDT us Ludin Jose MD POINT OF CARE TEST ORDERABLES Fi nal Result Performing Organization Address City/[facility]/ZIP Co de Phone Number [facility] [address] [facility] * POC pH (04/18/2025 12:56 PM EDT) POC pH, Arterial 7.36 7.35 - 7.45 04/18/2025 1:37 PM EDT [facility] Blood, Arterial 04/18/2025 1 2:56 PM EDT 04/18/2025 1:37 PM EDT us Ludin Jose MD POINT OF CARE TEST ORDERABLES Fi nal Result Performing Organization Address City/[facility]/ZIP Co de Phone Number [facility] [address] [facility]. [address] * (ABNORMAL) POC INR (04/18/2025 12:51 PM EDT) Prothrombin Time INR, POC 6.1(HH) 0.8 - 1.4 04/19/2025 6:33 AM EDT [facility] Comment: Test results may vary using [...] OF CARE TEST ORDERABLES Fi nal Result [facility] [address] [facility] * Transfuse RBC Transfusion Rate: Per dept routine (04/18/2025 12:27 PM EDT) us Ludin Jose MD NURSING TREATMENT ORDERABLES - B LOOD ADMIN Final Result * Transfuse RBC Transfusion Rate: Per dept routine (04/18/2025 12:19 PM EDT) us Ludin Jose MD NURSING TREATMENT ORDERABLES - B LOOD ADMIN Final Result * POC Sample Type (04/18/2025 12:11 PM EDT) POC Sample Type Arterial 04/18/2025 12:54 PM EDT [facility] Blood, Arterial 04/18/2025 1 2:11 PM EDT 04/18/2025 12:54 PM EDT us Ludin Jose MD POINT OF CARE TEST ORDERABLES Fi nal Result [facility] [address] [facility] * POC Anion Gap (04/18/2025 12:11 PM EDT) POC Anion Gap, Arterial 9 3 - 16 mmol/L 04/18/2025 12:54 PM EDT [facility] Blood, Arterial 04/18/2025 1 2:11 PM EDT 04/18/2025 12:54 PM EDT us Ludin Jose MD POINT OF CARE TEST ORDERABLES Fi nal Result [facility] [address] [facility] * POC Chloride (04/18/2025 12:11 PM EDT) POC Chloride 107 98 - 110 mmol/L 04/18/2025 12:54 PM EDT [facility] Blood, Arterial 04/18/2025 1 2:11 PM EDT 04/18/2025 12:54 PM EDT us Ludin Jose MD POINT OF CARE TEST ORDERABLES Fi nal Result [facility] [address] [place] [address]. [address] * (ABNORMAL) POC Hemoglobin (04/18/2025 12:11 PM EDT) POC Hemoglobin 10.1(L) 12.0 - 16.0 g/dL 04/18/2025 12:54 PM EDT [facility] Blood, Arterial 04/18/2025 1 2:11 PM EDT 04/18/2025 12:54 PM EDT us Ludin Jose MD POINT OF CARE TEST ORDERABLES Fi nal Result Performing Organization Address [facility] Co de Phone Number [facility] [address] [facility]. [address] * (ABNORMAL) POC hematocrit (04/18/2025 12:11 PM EDT) [facility] POC Hematocrit 30.0(L) 35 - 45 % 04/18/2025 12:54 PM EDT [facility] Blood, Arterial 04/18/2025 1 2:11 PM EDT 04/18/2025 12:54 PM EDT us Ludin Jose MD POINT OF CARE TEST ORDERABLES Fi nal Result [facility] [address] [facility] * POC Lactate (04/18/2025 12:11 PM EDT) POC Lactate 1.24 0.50 - 2.20 mmol/L 04/18/2025 12:54 PM EDT [facility] Blood, Arterial 04/18/2025 1 2:11 PM EDT 04/18/2025 12:54 PM EDT us Ludin Jose MD POINT OF CARE TEST ORDERABLES Fi nal Result Performing Organization Address City/[facility]/ZIP Co de Phone Number [facility] [address] [facility] * (ABNORMAL) POC Glucose (04/18/2025 12:11 PM EDT) POC Glucose, Arterial 126(H) 70 - 100 mg/dL 04/18/2025 12:54 PM EDT [facility] Blood, Arterial 04/18/2025 1 2:11 PM EDT 04/18/2025 12:54 PM EDT us Ludin Jose MD POINT OF CARE TEST ORDERABLES Fi nal Result Performing Organization Address [facility] Co de Phone Number [facility] [address] [place]. [address] * POC Ionized Calcium (04/18/2025 12:11 PM EDT) POC Ionized Calcium 4.70 4.50 - 5.30 mg/dL 04/18/2025 12:54 PM EDT [facility] Blood, Arterial 04/18/2025 1 2:11 PM EDT 04/18/2025 12:54 PM EDT us Ludin Jose MD POINT OF CARE TEST ORDERABLES Fi nal Result Performing Organization Address City/[facility] Co de Phone Number [facility] [address] [facility] * POC Potassium (04/18/2025 12:11 PM EDT) POC Potassium 4.2 3.5 - 5.3 mmol/L 04/18/2025 12:54 PM EDT [facility] Blood, Arterial 04/18/2025 1 2:11 PM EDT 04/18/2025 12:54 PM EDT us Ludin Jose MD POINT OF CARE TEST ORDERABLES Fi nal Result Performing Organization Address City/[facility] Co de Phone Number [facility] [address] [place] [address]. [address] * POC Sodium (04/18/2025 12:11 PM EDT) POC Sodium 137 136 - 146 mmol/L 04/18/2025 12:54 PM EDT [facility] Blood, Arterial 04/18/2025 1 2:11 PM EDT 04/18/2025 12:54 PM EDT us Ludin Joes MD POINT OF CARE TEST ORDERABLES Fi nal Result Performing Organization Address [facility] de Phone Number [facility] [address] [place] [address]. [address] * (ABNORMAL) POC TCO2 (04/18/2025 12:11 PM EDT) POC TCO2, Arterial 22(L) 23 - 27 mmol/L 04/18/2025 12:54 PM EDT [facility] Blood, Arterial 04/18/2025 1 2:11 PM EDT 04/18/2025 12:54 PM EDT us Ludin Jose MD POINT OF CARE TEST ORDERABLES Fi nal Result Performing Organization Address City/[facility] Co de Phone Number [facility] [address] [place] [address]. [address] * (ABNORMAL) POC O2 SAT (04/18/2025 12:11 PM EDT) POC O2 Saturation, Arterial 99(H) 95 - 98 % 04/18/2025 12:54 PM EDT [facility] Blood, Arterial 04/18/2025 1 2:11 PM EDT 04/18/2025 12:54 PM EDT us Ludin Jose MD POINT OF CARE TEST ORDERABLES Fi nal Result Performing Organization Address [facility] Co de Phone Number [facility] [address] [place] [address]. [address] * (ABNORMAL) POC Base Excess (04/18/2025 12:11 PM EDT) POC Base Excess, Arterial -5(L) -2 - 3 mmol/L 04/18/2025 12:54 PM EDT [facility] Blood, Arterial 04/18/2025 1 2:11 PM EDT 04/18/2025 12:54 PM EDT Ludin Jose MD POINT OF CARE TEST ORDERABLES Fi nal Result Performing Organization Address [facility] Co de Phone Number [facility] [address] [place] [address]. [address] * (ABNORMAL) POC HCO3 (04/18/2025 12:11 PM EDT) POC HCO3, Arterial 21(L) 22 - 26 mmol/L 04/18/2025 12:54 PM EDT [facility] Blood, Arterial 04/18/2025 1 2:11 PM EDT 04/18/2025 12:54 PM EDT Ludin Jose MD POINT OF CARE TEST ORDERABLES Fi nal Result Performing Organization Address [facility] de Phone Number [facility] [address] [place] [address]. [address] * (ABNORMAL) POC PO2 (04/18/2025 12:11 PM EDT) POC pO2, Arterial 160(H) 80 - 100 mm Hg 04/18/2025 12:54 PM EDT [facility] Blood, Arterial 04/18/2025 1 2:11 PM EDT 04/18/2025 12:54 PM EDT Ludin Jose MD POINT OF CARE TEST ORDERABLES Fi nal Result [facility] [address] * POC PCO2 (04/18/2025 12:11 PM EDT) POC pCO2, Arterial 38 35 - 45 mm Hg 04/18/2025 12:54 PM EDT [facility] Blood, Arterial 04/18/2025 1 2:11 PM EDT 04/18/2025 12:54 PM EDT us Ludin Jose MD POINT OF CARE TEST ORDERABLES Fi nal Result Performing Organization Address City/[facility]/ZIP Co de Phone Number [facility] [address] * POC pH (04/18/2025 12:11 PM EDT) POC pH, Arterial 7.35 7.35 - 7.45 04/18/2025 12:54 PM EDT [facility] Blood, Arterial 04/18/2025 1 2:11 PM EDT 04/18/2025 12:54 PM EDT us Ludin Jose MD POINT OF CARE TEST ORDERABLES Fi nal Result [facility] [address] [facility]. [address] * POC INR (04/18/2025 12:05 PM EDT) Prothrombin Time INR, POC 1.3 0.8 - 1.4 04/19/2025 6:33 AM EDT [facility] Comment: Test results may vary using [...] OF CARE TEST ORDERABLES Fi nal Result [facility] [address] [facility]. [address] * POC Sample Type (04/18/2025 11:16 AM EDT) POC Sample Type Arterial 04/18/2025 12:09 PM EDT [facility] Blood, Arterial 04/18/2025 1 1:16 AM EDT 04/18/2025 12:09 PM EDT us Ludin Jose MD POINT OF CARE TEST ORDERABLES Fi nal Result Performing Organization Address [facility] Co de Phone Number [facility] [address] [place] [facility]. [address] * POC Anion Gap (04/18/2025 11:16 AM EDT) POC Anion Gap, Arterial 6 3 - 16 mmol/L 04/18/2025 12:09 PM EDT [facility] Blood, Arterial 04/18/2025 1 1:16 AM EDT 04/18/2025 12:09 PM EDT us Ludin Jose MD POINT OF CARE TEST ORDERABLES Fi nal Result Performing Organization Address City/[facility]/ZIP Co de Phone Number [facility] [address] [facility]. [address] * POC Chloride (04/18/2025 11:16 AM EDT) POC Chloride 108 98 - 110 mmol/L 04/18/2025 12:09 PM EDT [facility] Blood, Arterial 04/18/2025 1 1:16 AM EDT 04/18/2025 12:09 PM EDT us Ludin Jose MD POINT OF CARE TEST ORDERABLES Fi nal Result [facility] [address] * (ABNORMAL) POC Hemoglobin (04/18/2025 11:16 AM EDT) POC Hemoglobin 10.7(L) 12.0 - 16.0 g/dL 04/18/2025 12:09 PM EDT [facility] Blood, Arterial 04/18/2025 1 1:16 AM EDT 04/18/2025 12:09 PM EDT us Ludin Jose MD POINT OF CARE TEST ORDERABLES Fi nal Result [facility] [address] [facility]. [address] * (ABNORMAL) POC hematocrit (04/18/2025 11:16 AM EDT) Pathologist [facility] [place] POC Hematocrit 31.0(L) 35 - 45 % 04/18/2025 12:09 PM EDT [facility] Blood, Arterial 04/18/2025 1 1:16 AM EDT 04/18/2025 12:09 PM EDT us Ludin Jose MD POINT OF CARE TEST ORDERABLES Fi nal Result [facility] [address] [facility]. [address] * POC Lactate (04/18/2025 11:16 AM EDT) POC Lactate 1.10 0.50 - 2.20 mmol/L 04/18/2025 12:09 PM EDT [facility] Blood, Arterial 04/18/2025 1 1:16 AM EDT 04/18/2025 12:09 PM EDT us Ludin Jose MD POINT OF CARE TEST ORDERABLES Fi nal Result [facility] [address] [facility] [facility]. [address] * (ABNORMAL) POC Glucose (04/18/2025 11:16 AM EDT) [facility] POC Glucose, Arterial 116(H) 70 - 100 mg/dL 04/18/2025 12:09 PM EDT [facility] Blood, Arterial 04/18/2025 1 1:16 AM EDT 04/18/2025 12:09 PM EDT us Ludin Jose MD POINT OF CARE TEST ORDERABLES Fi nal Result [facility] [address] [facility] * POC Ionized Calcium (04/18/2025 11:16 AM EDT) [facility] POC Ionized Calcium 5.20 4.50 - 5.30 mg/dL 04/18/2025 12:09 PM EDT [facility] Blood, Arterial 04/18/2025 1 1:16 AM EDT 04/18/2025 12:09 PM EDT us Ludin Jose MD POINT OF CARE TEST ORDERABLES Fi nal Result Performing Organization Address City/[facility]/ZIP Co de Phone Number [facility] [address] [facility]. [address] * POC Potassium (04/18/2025 11:16 AM EDT) [facility] POC Potassium 4.1 3.5 - 5.3 mmol/L 04/18/2025 12:09 PM EDT [facility] Blood, Arterial 04/18/2025 1 1:16 AM EDT 04/18/2025 12:09 PM EDT us Ludin Jose MD POINT OF CARE TEST ORDERABLES Fi nal Result [facility] [address] [facility] * POC Sodium (04/18/2025 11:16 AM EDT) POC Sodium 137 136 - 146 mmol/L 04/18/2025 12:09 PM EDT [facility] Blood, Arterial 04/18/2025 1 1:16 AM EDT 04/18/2025 12:09 PM EDT us Ludin Jose MD POINT OF CARE TEST ORDERABLES Fi nal Result Performing Organization Address City/[facility]/ZIP Co de Phone Number [facility] [address] [place] [address]. [address] * POC TCO2 (04/18/2025 11:16 AM EDT) POC TCO2, Arterial 24 23 - 27 mmol/L 04/18/2025 12:09 PM EDT [facility] Blood, Arterial 04/18/2025 1 1:16 AM EDT 04/18/2025 12:09 PM EDT us Ludin Jose MD POINT OF CARE TEST ORDERABLES Fi nal Result Performing Organization Address [facility] Co de Phone Number [facility] [address] [facility] * (ABNORMAL) POC O2 SAT (04/18/2025 11:16 AM EDT) POC O2 Saturation, Arterial 99(H) 95 - 98 % 04/18/2025 12:09 PM EDT [facility] Blood, Arterial 04/18/2025 1 1:16 AM EDT 04/18/2025 12:09 PM EDT us Ludin Jose MD POINT OF CARE TEST ORDERABLES Fi nal Result Performing Organization Address City/[facility] Co de Phone Number [facility] [address] [facility] * POC Base Excess (04/18/2025 11:16 AM EDT) POC Base Excess, Arterial -2 -2 - 3 mmol/L 04/18/2025 12:09 PM EDT [facility] Blood, Arterial 04/18/2025 1 1:16 AM EDT 04/18/2025 12:09 PM EDT us Ludin Jose MD POINT OF CARE TEST ORDERABLES Fi nal Result Performing Organization Address City/[facility] Co de Phone Number [facility] [address] [place] [address]. [address] * POC HCO3 (04/18/2025 11:16 AM EDT) POC HCO3, Arterial 23 22 - 26 mmol/L 04/18/2025 12:09 PM EDT [facility] Blood, Arterial 04/18/2025 1 1:16 AM EDT 04/18/2025 12:09 PM EDT us Ludin Jose MD POINT OF CARE TEST ORDERABLES Fi nal Result Performing Organization Address [facility] de Phone Number [facility] [address] [facility] * (ABNORMAL) POC PO2 (04/18/2025 11:16 AM EDT) POC pO2, Arterial 136(H) 80 - 100 mm Hg 04/18/2025 12:09 PM EDT [facility] Blood, Arterial 04/18/2025 1 1:16 AM EDT 04/18/2025 12:09 PM EDT us Ludin Jose MD POINT OF CARE TEST ORDERABLES Fi nal Result Performing Organization Address City/[facility] Co de Phone Number [facility] [address] [facility]. [address] * POC PCO2 (04/18/2025 11:16 AM EDT) POC pCO2, Arterial 38 35 - 45 mm Hg 04/18/2025 12:09 PM EDT [facility] Blood, Arterial 04/18/2025 1 1:16 AM EDT 04/18/2025 12:09 PM EDT us Ludin Jose MD POINT OF CARE TEST ORDERABLES Fi nal Result Performing Organization Address City/[facility] Co de Phone Number [facility] [address] [facility] * POC pH (04/18/2025 11:16 AM EDT) POC pH, Arterial 7.38 7.35 - 7.45 04/18/2025 12:09 PM EDT [facility] Blood, Arterial 04/18/2025 1 1:16 AM EDT 04/18/2025 12:09 PM EDT us Ludin Jose MD POINT OF CARE TEST ORDERABLES Fi nal Result Performing Organization Address [facility] de Phone Number [facility] [address] [facility] * POC Sample Type (04/18/2025 11:13 AM EDT) POC Sample Type Arterial 04/18/2025 11:46 AM EDT [facility] Blood, Arterial 04/18/2025 1 1:13 AM EDT 04/18/2025 11:46 AM EDT us Ludin Jose MD POINT OF CARE TEST ORDERABLES Fi nal Result Performing Organization Address [facility] de Phone Number [facility] [address] [facility]. [address] * POC Anion Gap (04/18/2025 11:13 AM EDT) POC Anion Gap, Arterial cnc 3 - 16 mmol/L 04/18/2025 11:46 AM EDT [facility] Blood, Arterial 04/18/2025 1 1:13 AM EDT 04/18/2025 11:46 AM EDT us Ludin Jose MD POINT OF CARE TEST ORDERABLES Fi nal Result Performing Organization Address City/[facility] Co de Phone Number [facility] [address] * POC Chloride (04/18/2025 11:13 AM EDT) POC Chloride cnc 98 - 110 mmol/L 04/18/2025 11:46 AM EDT [facility] Blood, Arterial 04/18/2025 1 1:13 AM EDT 04/18/2025 11:46 AM EDT us Ludin Jose MD POINT OF CARE TEST ORDERABLES Fi nal Result Performing Organization Address City/[facility] Co de Phone Number [facility] [address] [facility]. [address] * POC Hemoglobin (04/18/2025 11:13 AM EDT) Pathologist [facility] [place] POC Hemoglobin cnc 12.0 - 16.0 g/dL 04/18/2025 11:46 AM EDT [facility] Blood, Arterial 04/18/2025 1 1:13 AM EDT 04/18/2025 11:46 AM EDT us Ludin Jose MD POINT OF CARE TEST ORDERABLES Fi nal Result Performing Organization Address [facility] Co de Phone Number [facility] [address] [facility]. [address] * POC hematocrit (04/18/2025 11:13 AM EDT) Pathologist [facility] [place] POC Hematocrit Failed iQC 35 - 45 % 04/18/2025 11:46 AM EDT [facility] Blood, Arterial 04/18/2025 1 1:13 AM EDT 04/18/2025 11:46 AM EDT us Ludin Jose MD POINT OF CARE TEST ORDERABLES Fi nal Result Performing Organization Address City/[facility]/ZIP Co de Phone Number [facility] [address] [facility]. [address] * POC Lactate (04/18/2025 11:13 AM EDT) POC Lactate 1.13 0.50 - 2.20 mmol/L 04/18/2025 11:46 AM EDT [facility] Blood, Arterial 04/18/2025 1 1:13 AM EDT 04/18/2025 11:46 AM EDT us Ludin Jose MD POINT OF CARE TEST ORDERABLES Fi nal Result [facility] [address] [facility]. [address] * (ABNORMAL) POC Glucose (04/18/2025 11:13 AM EDT) Pathologist [facility] [place] POC Glucose, Arterial 123(H) 70 - 100 mg/dL 04/18/2025 11:46 AM EDT [facility] Blood, Arterial 04/18/2025 1 1:13 AM EDT 04/18/2025 11:46 AM EDT us Ludin Jose MD POINT OF CARE TEST ORDERABLES Fi nal Result Performing Organization Address [facility] Co de Phone Number [facility] [address] [facility]. [address] * POC Ionized Calcium (04/18/2025 11:13 AM EDT) [facility] POC Ionized Calcium 5.20 4.50 - 5.30 mg/dL 04/18/2025 11:46 AM EDT [facility] Blood, Arterial 04/18/2025 1 1:13 AM EDT 04/18/2025 11:46 AM EDT us Ludin Jose MD POINT OF CARE TEST ORDERABLES Fi nal Result Performing Organization Address City/[facility] Co de Phone Number [facility] [address] * POC Potassium (04/18/2025 11:13 AM EDT) Pathologist [facility] [place] POC Potassium 4.1 3.5 - 5.3 mmol/L 04/18/2025 11:46 AM EDT [facility] Blood, Arterial 04/18/2025 1 1:13 AM EDT 04/18/2025 11:46 AM EDT us Ludin Jose MD POINT OF CARE TEST ORDERABLES Fi nal Result Performing Organization Address City/[facility]/ZIP Co de Phone Number [facility] [address] [place] [address]. [address] * POC Sodium (04/18/2025 11:13 AM EDT) POC Sodium 138 136 - 146 mmol/L 04/18/2025 11:46 AM EDT [facility] Blood, Arterial 04/18/2025 1 1:13 AM EDT 04/18/2025 11:46 AM EDT us Ludin Jose MD POINT OF CARE TEST ORDERABLES Fi nal Result Performing Organization Address [facility] Co de Phone Number [facility] [address] [place] [address]. [address] * POC TCO2 (04/18/2025 11:13 AM EDT) Pathologist [facility] [place] POC TCO2, Arterial 24 23 - 27 mmol/L 04/18/2025 11:46 AM EDT [facility] Blood, Arterial 04/18/2025 1 1:13 AM EDT 04/18/2025 11:46 AM EDT us Ludin Jose MD POINT OF CARE TEST ORDERABLES Fi nal Result Performing Organization Address City/[facility] Co de Phone Number [facility] [address] [place] [address]. [address] * (ABNORMAL) POC O2 SAT (04/18/2025 11:13 AM EDT) POC O2 Saturation, Arterial 99(H) 95 - 98 % 04/18/2025 11:46 AM EDT [facility] Blood, Arterial 04/18/2025 1 1:13 AM EDT 04/18/2025 11:46 AM EDT us Ludin Jose MD POINT OF CARE TEST ORDERABLES Fi nal Result Performing Organization Address City/[facility] Co de Phone Number [facility] [address] [facility]. [address] * POC Base Excess (04/18/2025 11:13 AM EDT) POC Base Excess, Arterial -2 -2 - 3 mmol/L 04/18/2025 11:46 AM EDT [facility] Blood, Arterial 04/18/2025 1 1:13 AM EDT 04/18/2025 11:46 AM EDT us Ludin Jose MD POINT OF CARE TEST ORDERABLES Fi nal Result Performing Organization Address [facility] Co de Phone Number [facility] [address] [facility]. [address] * POC HCO3 (04/18/2025 11:13 AM EDT) POC HCO3, Arterial 23 22 - 26 mmol/L 04/18/2025 11:46 AM EDT [facility] Blood, Arterial 04/18/2025 1 1:13 AM EDT 04/18/2025 11:46 AM EDT us Ludin Jose MD POINT OF CARE TEST ORDERABLES Fi nal Result Performing Organization Address [facility] Co de Phone Number [facility] [address] [facility] * (ABNORMAL) POC PO2 (04/18/2025 11:13 AM EDT) POC pO2, Arterial 133(H) 80 - 100 mm Hg 04/18/2025 11:46 AM EDT [facility] Blood, Arterial 04/18/2025 1 1:13 AM EDT 04/18/2025 11:46 AM EDT us Ludin Jose MD POINT OF CARE TEST ORDERABLES Fi nal Result Performing Organization Address City/[facility]/ZIP Co de Phone Number [facility] [address] [facility]. [address] * POC PCO2 (04/18/2025 11:13 AM EDT) POC pCO2, Arterial 38 35 - 45 mm Hg 04/18/2025 11:46 AM EDT [facility] Blood, Arterial 04/18/2025 1 1:13 AM EDT 04/18/2025 11:46 AM EDT us Ludin Jose MD POINT OF CARE TEST ORDERABLES Fi nal Result Performing Organization Address [facility] Co de Phone Number [facility] [address] * POC pH (04/18/2025 11:13 AM EDT) POC pH, Arterial 7.38 7.35 - 7.45 04/18/2025 11:46 AM EDT [facility] Blood, Arterial 04/18/2025 1 1:13 AM EDT 04/18/2025 11:46 AM EDT us Ludin Jose MD POINT OF CARE TEST ORDERABLES Fi nal Result Performing Organization Address City/[facility] Co de Phone Number [facility] [address] * POC INR (04/18/2025 11:07 AM EDT) Prothrombin Time INR, POC 1.3 0.8 - 1.4 04/19/2025 6:33 AM EDT [facility] Comment: Test results may vary using different testing platforms. Serial result monitoring should be performed using the same methodology. RECOMMENDED THERAPEUTIC RANGES USING INR : Stable oral anticoagulant therapy: 2.0 - 3.0 Mechanical prosthetic heart valve: 2.5 - 3.5 Recurrent acute myocardial infarction: 2.5 - 3.5 Blood 04/18/2025 11:0 7 AM EDT 04/19/2025 6:32 AM EDT Ludin Jose MD POINT OF CARE TEST ORDERABLES Fi nal Result Performing Organization Address [facility] Co de Phone Number [facility] [address] [facility]. [address] * POC Sample Type (04/18/2025 10:17 AM EDT) POC Sample Type Arterial 04/18/2025 11:10 AM EDT [facility] Blood, Arterial 04/18/2025 1 0:17 AM EDT 04/18/2025 11:10 AM EDT Ludin Jose MD POINT OF CARE TEST ORDERABLES Fi nal Result Performing Organization Address [facility] Co de Phone Number [facility] [address] [place] [address]. [address] * POC Anion Gap (04/18/2025 10:17 AM EDT) Pathologist [facility] [place] POC Anion Gap, Arterial 10 3 - 16 mmol/L 04/18/2025 11:10 AM EDT [facility] Blood, Arterial 04/18/2025 1 0:17 AM EDT 04/18/2025 11:10 AM EDT Ludin Jose MD POINT OF CARE TEST ORDERABLES Fi nal Result Performing Organization Address [facility] Co de Phone Number [facility] [address] [facility]. [address] * POC Chloride (04/18/2025 10:17 AM EDT) Pathologist [facility] [place] POC Chloride 106 98 - 110 mmol/L 04/18/2025 11:10 AM EDT [facility] Blood, Arterial 04/18/2025 1 0:17 AM EDT 04/18/2025 11:10 AM EDT us Ludin Jose MD POINT OF CARE TEST ORDERABLES Fi nal Result Performing Organization Address [facility] Co de Phone Number [facility] [address] [facility]. [address] * (ABNORMAL) POC Hemoglobin (04/18/2025 10:17 AM EDT) POC Hemoglobin 9.8(L) 12.0 - 16.0 g/dL 04/18/2025 11:10 AM EDT [facility] Blood, Arterial 04/18/2025 1 0:17 AM EDT 04/18/2025 11:10 AM EDT Ludin Jose MD POINT OF CARE TEST ORDERABLES Fi nal Result Performing Organization Address [facility] Co de Phone Number [facility] [address] [place] [address]. [address] * (ABNORMAL) POC hematocrit (04/18/2025 10:17 AM EDT) POC Hematocrit 29.0(L) 35 - 45 % 04/18/2025 11:10 AM EDT [facility] Blood, Arterial 04/18/2025 1 0:17 AM EDT 04/18/2025 11:10 AM EDT us Ludin Jose MD POINT OF CARE TEST ORDERABLES Fi nal Result Performing Organization Address [facility] Co de Phone Number [facility] [address] [place] [address]. [address] * POC Lactate (04/18/2025 10:17 AM EDT) POC Lactate 1.06 0.50 - 2.20 mmol/L 04/18/2025 11:10 AM EDT [facility] Blood, Arterial 04/18/2025 1 0:17 AM EDT 04/18/2025 11:10 AM EDT us Ludin Jose MD POINT OF CARE TEST ORDERABLES Fi nal Result Performing Organization Address City/[facility] Co de Phone Number [facility] [address] * (ABNORMAL) POC Glucose (04/18/2025 10:17 AM EDT) POC Glucose, Arterial 109(H) 70 - 100 mg/dL 04/18/2025 11:10 AM EDT [facility] Blood, Arterial 04/18/2025 1 0:17 AM EDT 04/18/2025 11:10 AM EDT Ludin Jose MD POINT OF CARE TEST ORDERABLES Fi nal Result Performing Organization Address [facility] Co de Phone Number [facility] [address] * (ABNORMAL) POC Ionized Calcium (04/18/2025 10:17 AM EDT) POC Ionized Calcium 5.40(H) 4.50 - 5.30 mg/dL 04/18/2025 11:10 AM EDT [facility] Blood, Arterial 04/18/2025 1 0:17 AM EDT 04/18/2025 11:10 AM EDT us Ludin Jose MD POINT OF CARE TEST ORDERABLES Fi nal Result Performing Organization Address [facility] Co de Phone Number [facility] [address] * POC Potassium (04/18/2025 10:17 AM EDT) POC Potassium 3.8 3.5 - 5.3 mmol/L 04/18/2025 11:10 AM EDT [facility] Blood, Arterial 04/18/2025 1 0:17 AM EDT 04/18/2025 11:10 AM EDT us Ludin Jose MD POINT OF CARE TEST ORDERABLES Fi nal Result Performing Organization Address City/[facility]/ZIP Co de Phone Number [facility] [address] * POC Sodium (04/18/2025 10:17 AM EDT) POC Sodium 139 136 - 146 mmol/L 04/18/2025 11:10 AM EDT [facility] Blood, Arterial 04/18/2025 1 0:17 AM EDT 04/18/2025 11:10 AM EDT us Ludin Jose MD POINT OF CARE TEST ORDERABLES Fi nal Result [facility] [address] [facility] * POC TCO2 (04/18/2025 10:17 AM EDT) POC TCO2, Arterial 24 23 - 27 mmol/L 04/18/2025 11:10 AM EDT [facility] Blood, Arterial 04/18/2025 1 0:17 AM EDT 04/18/2025 11:10 AM EDT us Ludin Jose MD POINT OF CARE TEST ORDERABLES Fi nal Result Performing Organization Address City/[facility] Co de Phone Number [facility] [address] [facility]. [address] * (ABNORMAL) POC O2 SAT (04/18/2025 10:17 AM EDT) POC O2 Saturation, Arterial 99(H) 95 - 98 % 04/18/2025 11:10 AM EDT [facility] Blood, Arterial 04/18/2025 1 0:17 AM EDT 04/18/2025 11:10 AM EDT us Ludin Jose MD POINT OF CARE TEST ORDERABLES Fi nal Result Performing Organization Address City/[facility]/ZIP Co de Phone Number [facility] [address] [facility] * POC Base Excess (04/18/2025 10:17 AM EDT) POC Base Excess, Arterial -2 -2 - 3 mmol/L 04/18/2025 11:10 AM EDT [facility] Blood, Arterial 04/18/2025 1 0:17 AM EDT 04/18/2025 11:10 AM EDT us Ludin Jose MD POINT OF CARE TEST ORDERABLES Fi nal Result Performing Organization Address City/[facility] Co de Phone Number [facility] [address] [place] [address]. [address] * POC HCO3 (04/18/2025 10:17 AM EDT) POC HCO3, Arterial 23 22 - 26 mmol/L 04/18/2025 11:10 AM EDT [facility] Blood, Arterial 04/18/2025 1 0:17 AM EDT 04/18/2025 11:10 AM EDT us Ludin Jose MD POINT OF CARE TEST ORDERABLES Fi nal Result Performing Organization Address [facility] de Phone Number [facility] [address] [place] [address]. [address] * (ABNORMAL) POC PO2 (04/18/2025 10:17 AM EDT) POC pO2, Arterial 134(H) 80 - 100 mm Hg 04/18/2025 11:10 AM EDT [facility] Blood, Arterial 04/18/2025 1 0:17 AM EDT 04/18/2025 11:10 AM EDT us Ludin Jose MD POINT OF CARE TEST ORDERABLES Fi nal Result Performing Organization Address [facility] Co de Phone Number [facility] [address] [place] [address]. [address] * POC PCO2 (04/18/2025 10:17 AM EDT) POC pCO2, Arterial 38 35 - 45 mm Hg 04/18/2025 11:10 AM EDT [facility] Blood, Arterial 04/18/2025 1 0:17 AM EDT 04/18/2025 11:10 AM EDT us Ludin Jose MD POINT OF CARE TEST ORDERABLES Fi nal Result Performing Organization Address [facility] Co de Phone Number [facility] [address] * POC pH (04/18/2025 10:17 AM EDT) POC pH, Arterial 7.39 7.35 - 7.45 04/18/2025 11:10 AM EDT [facility] Blood, Arterial 04/18/2025 1 0:17 AM EDT 04/18/2025 11:10 AM EDT us Ludin Jose MD POINT OF CARE TEST ORDERABLES Fi nal Result Performing Organization Address [facility] de Phone Number [facility] [address] * POC INR (04/18/2025 10:12 AM EDT) Prothrombin Time INR, POC 1.3 0.8 - 1.4 04/19/2025 6:33 AM EDT [facility] Comment: Test results may vary using [...] ORDERABLES Fi nal Result Performing Organization Address [facility] Co de Phone Number [facility] [address] * (ABNORMAL) POC INR (04/18/2025 9:19 AM EDT) Prothrombin Time INR, POC 1.7(H) 0.8 - 1.4 04/19/2025 6:33 AM EDT [facility] Comment: Test results may vary using [...] ORDERABLES Fi nal Result Performing Organization Address City/[facility] Co de Phone Number [facility] [address] * POC Sample Type (04/18/2025 9:17 AM EDT) Pathologist [facility] [place] POC Sample Type Arterial 04/18/2025 9:24 AM EDT [facility] Blood, Arterial 04/18/2025 9 :17 AM EDT 04/18/2025 9:24 AM EDT us Ludin Jose MD POINT OF CARE TEST ORDERABLES Fi nal Result Performing Organization Address [facility] Co de Phone Number [facility] [address] [facility] * POC Anion Gap (04/18/2025 9:17 AM EDT) POC Anion Gap, Arterial 9 3 - 16 mmol/L 04/18/2025 9:24 AM EDT [facility] Blood, Arterial 04/18/2025 9 :17 AM EDT 04/18/2025 9:24 AM EDT us Ludin Jose MD POINT OF CARE TEST ORDERABLES Fi nal Result Performing Organization Address City/[facility] Co de Phone Number [facility] [address] [place] [facility]. [address] * POC Chloride (04/18/2025 9:17 AM EDT) [facility] POC Chloride 104 98 - 110 mmol/L 04/18/2025 9:24 AM EDT [facility] Blood, Arterial 04/18/2025 9 :17 AM EDT 04/18/2025 9:24 AM EDT us Ludin Jose MD POINT OF CARE TEST ORDERABLES Fi nal Result [facility] [address] [facility] * (ABNORMAL) POC Hemoglobin (04/18/2025 9:17 AM EDT) [facility] POC Hemoglobin 9.5(L) 12.0 - 16.0 g/dL 04/18/2025 9:24 AM EDT [facility] Blood, Arterial 04/18/2025 9 :17 AM EDT 04/18/2025 9:24 AM EDT us Ludin Jose MD POINT OF CARE TEST ORDERABLES Fi nal Result Performing Organization Address City/[facility]/ZIP Co de Phone Number [facility] [address] [facility] * (ABNORMAL) POC hematocrit (04/18/2025 9:17 AM EDT) [facility] POC Hematocrit 28.0(L) 35 - 45 % 04/18/2025 9:24 AM EDT [facility] Blood, Arterial 04/18/2025 9 :17 AM EDT 04/18/2025 9:24 AM EDT us Ludin Jose MD POINT OF CARE TEST ORDERABLES Fi nal Result Performing Organization Address City/[facility]/ZIP Co de Phone Number [facility] [address] [facility]. [address] * (ABNORMAL) POC Lactate (04/18/2025 9:17 AM EDT) Pathologist [facility] [place] POC Lactate <0.30(L) 0.50 - 2.20 mmol/L 04/18/2025 9:24 AM EDT [facility] Blood, Arterial 04/18/2025 9 :17 AM EDT 04/18/2025 9:24 AM EDT us Ludin Jose MD POINT OF CARE TEST ORDERABLES Fi nal Result [facility] [address] [facility] * (ABNORMAL) POC Glucose (04/18/2025 9:17 AM EDT) [facility] POC Glucose, Arterial 109(H) 70 - 100 mg/dL 04/18/2025 9:24 AM EDT [facility] Blood, Arterial 04/18/2025 9 :17 AM EDT 04/18/2025 9:24 AM EDT us Ludin Jose MD POINT OF CARE TEST ORDERABLES Fi nal Result Performing Organization Address [facility] Co de Phone Number [facility] [address] [place] [address]. [address] * POC Ionized Calcium (04/18/2025 9:17 AM EDT) [facility] POC Ionized Calcium 4.90 4.50 - 5.30 mg/dL 04/18/2025 9:24 AM EDT [facility] Blood, Arterial 04/18/2025 9 :17 AM EDT 04/18/2025 9:24 AM EDT us Ludin Jose MD POINT OF CARE TEST ORDERABLES Fi nal Result Performing Organization Address City/[facility] Co de Phone Number [facility] [address] [facility] * POC Potassium (04/18/2025 9:17 AM EDT) [facility] POC Potassium 3.6 3.5 - 5.3 mmol/L 04/18/2025 9:24 AM EDT [facility] Blood, Arterial 04/18/2025 9 :17 AM EDT 04/18/2025 9:24 AM EDT Ludin Jose MD POINT OF CARE TEST ORDERABLES Fi nal Result [facility] [address] [facility] * POC Sodium (04/18/2025 9:17 AM EDT) POC Sodium 140 136 - 146 mmol/L 04/18/2025 9:24 AM EDT [facility] Blood, Arterial 04/18/2025 9 :17 AM EDT 04/18/2025 9:24 AM EDT Ludin Jose MD POINT OF CARE TEST ORDERABLES Fi nal Result Performing Organization Address City/[facility] Co de Phone Number [facility] [address] [facility] * (ABNORMAL) POC TCO2 (04/18/2025 9:17 AM EDT) POC TCO2, Arterial 28(H) 23 - 27 mmol/L 04/18/2025 9:24 AM EDT [facility] Blood, Arterial 04/18/2025 9 :17 AM EDT 04/18/2025 9:24 AM EDT us Ludin Jose MD POINT OF CARE TEST ORDERABLES Fi nal Result [facility] [address] [facility] * (ABNORMAL) POC O2 SAT (04/18/2025 9:17 AM EDT) POC O2 Saturation, Arterial 100(H) 95 - 98 % 04/18/2025 9:24 AM EDT [facility] Blood, Arterial 04/18/2025 9 :17 AM EDT 04/18/2025 9:24 AM EDT us Ludin Jose MD POINT OF CARE TEST ORDERABLES Fi nal Result Performing Organization Address City/[facility]/ZIP Co de Phone Number [facility] [address] [facility] * POC Base Excess (04/18/2025 9:17 AM EDT) POC Base Excess, Arterial 1 -2 - 3 mmol/L 04/18/2025 9:24 AM EDT [facility] Blood, Arterial 04/18/2025 9 :17 AM EDT 04/18/2025 9:24 AM EDT us Ludin Jose MD POINT OF CARE TEST ORDERABLES Fi nal Result Performing Organization Address City/[facility] Co de Phone Number [facility] [address] [facility] * (ABNORMAL) POC HCO3 (04/18/2025 9:17 AM EDT) POC HCO3, Arterial 27(H) 22 - 26 mmol/L 04/18/2025 9:24 AM EDT [facility] Blood, Arterial 04/18/2025 9 :17 AM EDT 04/18/2025 9:24 AM EDT us Ludin Jose MD POINT OF CARE TEST ORDERABLES Fi nal Result Performing Organization Address City/State/[facility] Co de Phone Number [facility] [address] [facility] * (ABNORMAL) POC PO2 (04/18/2025 9:17 AM EDT) POC pO2, Arterial 354(H) 80 - 100 mm Hg 04/18/2025 9:24 AM EDT [facility] Blood, Arterial 04/18/2025 9 :17 AM EDT 04/18/2025 9:24 AM EDT us Ludin Jose MD POINT OF CARE TEST ORDERABLES Fi nal Result Performing Organization Address [facility] Co de Phone Number [facility] [address] [place] [address]. [address] * (ABNORMAL) POC PCO2 (04/18/2025 9:17 AM EDT) POC pCO2, Arterial 50(H) 35 - 45 mm Hg 04/18/2025 9:24 AM EDT [facility] [facility] Blood, Arterial 04/18/2025 9 :17 AM EDT 04/18/2025 9:24 AM EDT us Ludin Jose MD POINT OF CARE TEST ORDERABLES Fi nal Result Performing Organization Address [facility] Co de Phone Number [address] * (ABNORMAL) POC pH (04/18/2025 9:17 AM EDT) POC pH, Arterial 7.34(L) 7.35 - 7.45 04/18/2025 9:24 AM EDT [facility] Blood, Arterial 04/18/2025 9 :17 AM EDT 04/18/2025 9:24 AM EDT us Ludin Jose MD POINT OF CARE TEST ORDERABLES Fi nal Result Performing Organization Address [facility] Co de Phone Number [facility] [address] [place] [address]. [address] * POC HCG Qualitative, Urine (04/18/2025 6:16 AM EDT) hCG Qualitative -Clinitek Negative Negative 04/18/2025 6:22 AM EDT [facility] Urine 04/18/2025 6:16 AM EDT 04/18/2025 6:22 AM EDT us Ludin Jose MD URINE ORDERABLES Final Result [facility] [address] [place] [address], [place] * (ABNORMAL) Venous Blood Gas, Line/Syringe (04/18/2025 6:03 AM EDT) PH-Line Draw 7.42 7.32 - 7.42 04/18/2025 6:40 AM EDT [facility] PCO2-Line Draw 39(L) 41 - 51 mm Hg 04/18/2025 6:40 AM EDT [facility] PO2-Line Draw 37 25 - 40 mm Hg 04/18/2025 6:40 AM EDT [facility] HCO3-Line Draw 25 24 - 28 mmol/L 04/18/2025 6:40 AM EDT [facility] CO2 Content-Line Draw 27 25 - 29 mmol/L 04/18/2025 6:40 AM EDT [facility] Base Excess-Line Draw 0.8 -2.0 - 3.0 mmol/L 04/18/2025 6:40 AM EDT [facility] %HBO2-Line Draw 61.4 40.0 - 70.0 % 04/18/2025 6:40 AM EDT [facility] Carboxyhgb-Kaur e Draw 1.1 % 04/18/2025 6:40 AM EDT [facility] Comment: CARBOXYHEMOGLOBIN (CO) REFERENCE RANGES: Non-Smokers: <2 % Smokers: <8 % TOXIC: >20 % Methemoglobin- Line Draw 0.8 0.0 - 1.5 % 04/18/2025 6:40 AM EDT [facility] Reduced Hemoglobin-Kaur e Draw 36.8(H) 0.0 - 5.0 % 04/18/2025 6:40 AM EDT [facility] Venous, Line Draw 04/18/2025 6:03 AM EDT 04/18/2025 6:36 AM EDT Narrative [facility] - 04/18/2025 6:40 AM EDT Specimen is beyond 15 minutes from time of collection. Results may be compromised. Review results critically. Ludin Jose MD LAB BLOOD ORDERABLES Final Resul t [facility] [address] [place] [address], [place] * (ABNORMAL) Renal Function Panel w/EGFR (04/18/2025 6:03 AM EDT) Sodium 138 133 - 146 mmol/L 04/18/2025 8:09 AM EDT [facility] Potassium 3.3(L) 3.5 - 5.3 mmol/L 04/18/2025 8:09 AM EDT [facility] Chloride 104 98 - 110 mmol/L 04/18/2025 8:09 AM EDT [facility] CO2 26 21 - 33 mmol/L 04/18/2025 8:09 AM EDT [facility] Comment:High lactate dehydro genase concentrations in patient samples may cause falsely increased bicarbonate results. If markedly elevated LDH is observed or suspected, please assess results in conjunction with patient`s clinical presentation. In cases of discrepant results, consider evaluating CO2 in with a blood gas order. Anion Gap 8 3 - 16 mmol/L 04/18/2025 8:09 AM EDT [facility] BUN 12 7 - 25 mg/dL 04/18/2025 8:09 AM EDT [facility] Creatinine 0.77 0.60 - 1.30 mg/dL 04/18/2025 8:09 AM EDT [facility] Glucose 89 70 - 100 mg/dL 04/18/2025 8:09 AM EDT [facility] Calcium 9.0 8.6 - 10.3 mg/dL 04/18/2025 8:09 AM EDT [facility] Phosphorus 3.8 2.1 - 4.7 mg/dL 04/18/2025 8:09 AM EDT [facility] Albumin 3.8 3.5 - 5.7 g/dL 04/18/2025 8:09 AM EDT [facility] Osmolality, Calculated 285 278 - 305 mOsm/kg 04/18/2025 8:09 AM EDT [facility] EGFR >90 04/18/2025 8:09 AM EDT [facility] Comment: As of 2021, the [...] 6:03 AM EDT 04/18/2025 6:45 AM EDT Ludin Jose MD LAB BLOOD ORDERABLES Final Resul t [facility] [address] * (ABNORMAL) TEG-Standard Global Hemostasis (Rapid TEG with Heparin Effect, Contains a Baseline TEG) (04/18/2025 6:03 AM EDT) [facility] Citrated Kaolin Reaction Time (TEGHEPARINASE) 4.1(L) 4.6 - 9.1 minutes 04/18/2025 7:21 AM EDT [facility] Citrated Rapid Teg Maximum Amplitude (TEGHEPARINASE) 55.2 52.0 - 70.0 mm 04/18/2025 7:21 AM EDT [facility] Citrated Functional Fibrinogen Maximum Amplitude (TEGHEPARINASE) 17.2 15.0 - 32.0 mm 04/18/2025 7:21 AM EDT [facility] Citrated Kaolin W/Heparinase Reaction Time (TEGHEPARINASE) 4.2(L) 4.3 - 8.3 minutes 04/18/2025 7:21 AM EDT [facility] Citrated Kaolin K-Time (TEGHEPARINASE) 1.3(A) 0.8 - 2.1 minutes 04/18/2025 7:21 AM EDT [facility] Citrated Kaolin Angle (TEGHEPARINASE) 73.6(A) 63.0 - 78.0 degrees 04/18/2025 7:21 AM EDT [facility] Citrated Kaolin Maximum Amplitude (TEGHEPARINASE) 56.4 52.0 - 69.0 mm 04/18/2025 7:21 AM EDT [facility] Citrated Functional Fibrinogen- Fibrinogen Level (TEGHEPARINASE) 313.9 278.0 - 581.0 mg/dL 04/18/2025 7:21 AM EDT [facility] Whole Blood (Citrate) 04/18/2025 6:03 AM EDT 04/18/2025 6:45 AM EDT us Ludin Jose MD LAB BLOOD ORDERABLES Final Resul t Performing Organization Address [facility] de Phone Number [facility] [address] [place] [address] * Protime-INR (04/18/2025 6:03 AM EDT) Protime 15.1 12.1 - 15.1 seconds 04/18/2025 7:07 AM EDT [facility] INR 1.1 0.9 - 1.1 04/18/2025 7:07 AM EDT [facility] Comment: RECOMMENDED THERAPEUTIC RANGES USING INR : Stable oral anticoagulant therapy: 2.0 - 3.0 Mechanical prosthetic heart valve: 2.5 - 3.5 Recurrent acute myocardial infarction: 2.5 - 3.5 Plasma 04/18/2025 6:03 AM EDT 04/18/2025 6:45 AM EDT us Ludin Jose MD LAB BLOOD ORDERABLES Final Resul t Performing Organization Address [facility] Co de Phone Number [facility] [address] [place] [address] * Magnesium (04/18/2025 6:03 AM EDT) Magnesium 2.2 1.5 - 2.5 mg/dL 04/18/2025 8:09 AM EDT [facility] Plasma 04/18/2025 6:03 AM EDT 04/18/2025 6:45 AM EDT us Ludin Jose MD LAB BLOOD ORDERABLES Final Resul t Performing Organization Address City/[facility]/ZIP Co de Phone Number [facility] [address] [facility]. [address] * HIV 1+2 Antibody/Antigen with Reflex (04/18/2025 6:03 AM EDT) Pathologist [facility] [place] HIV 1+2 AB/AGN Nonreactive Nonreactive 04/18/2025 8:32 AM EDT [facility] Serum 04/18/2025 6:03 AM EDT 04/18/2025 6:45 AM EDT Narrative [facility] - 04/18/2025 8:32 AM EDT \HIVRNR us Ludin Jose MD LAB BLOOD ORDERABLES Final Resul t Performing Organization Address [facility] de Phone Number [facility] [address] [facility]. [address] * Hepatitis C RNA, Quant Reflex to Genotyp (04/18/2025 6:03 AM EDT) Pathologist [facility] [place] International Units Not Detected IU/mL 04/21/2025 11:40 AM EDT [facility] Comment:Test methodology for HCV RNA quantification is an FDA-approved nucleic acid amplification assay. The Lower Limit of Quantitation (LLOQ) is 15 IU/mL. The linear range of the assay is 15-100,000,000 IU/mL. The Limit of Detection (LoD) is 12.0 IU/mL for EDTA plasma. The reference range is Not Detected. IU log10 See Note log 10 IU/mL 04/21/2025 11:40 AM EDT [facility] Comment:HCV RNA not detected . Plasma 04/18/2025 6:03 AM EDT 04/18/2025 7:58 AM EDT us Ludin Jose MD LAB BLOOD ORDERABLES Final Resul t Performing Organization Address [facility] Co de Phone Number [facility] [address] [facility]. [address] * Hepatitis B Core Antibody (04/18/2025 6:03 AM EDT) Pathologist [facility] [place] Hep B Core Total Ab Nonreactive Nonreactive 04/18/2025 8:33 AM EDT [facility] Comment:Health Department no tified in accordance with reportable infectious disease guidelines. Serum 04/18/2025 6:03 AM EDT 04/18/2025 6:45 AM EDT [facility] - 04/18/2025 8:33 AM EDT A nonreactive final interpretation indicates that anti-HBc antibodies were not detected in the sample; it is possible that the individual is not infected with HBV. us Ludin Jose MD LAB BLOOD ORDERABLES Final Resul t Performing Organization Address [facility] de Phone Number [facility] [address] [facility]. [address] * (ABNORMAL) Hepatitis C Antibody (04/18/2025 6:03 AM EDT) Pathologist [facility] [place] HCV Ab Reactive( A) Nonreactive 04/18/2025 8:42 AM EDT [facility] Comment: Health Department notified in accordance with reportable infectious disease guidelines. Health Department notified in accordance with reportable infectious disease guidelines. Serum 04/18/2025 6:03 AM EDT 04/18/2025 6:45 AM EDT [facility] - 04/18/2025 8:42 AM EDT Presumptive evidence of antibodies to HCV: follow CDC recommendations for supplemental testing. us Ludin Jose MD LAB BLOOD ORDERABLES Final Resul t Performing Organization Address [facility] Co de Phone Number [facility] [address] [facility] * Hepatitis B Surface Antibody, Quantitati (04/18/2025 6:03 AM EDT) Pathologist [facility] [place] HBSAB NUMBER 5.17 0.00 - 9.99 mIU/mL 04/18/2025 8:46 AM EDT [facility] Hep B S Ab Nonreactive Nonreactive 04/18/2025 8:46 AM EDT [facility] Serum 04/18/2025 6:03 AM EDT 04/18/2025 6:45 AM EDT Narrative [facility] - 04/18/2025 8:46 AM EDT Individual is considered not immune to HBV infection. us Ludin Jose MD LAB BLOOD ORDERABLES Final Resul t Performing Organization Address [facility] de Phone Number [facility] [address] [facility] * Hepatitis B surface antigen (04/18/2025 6:03 AM EDT) Hep B Surface Ag Nonreactive Nonreactive 04/18/2025 8:37 AM EDT [facility] Comment:Health Department no tified in accordance with reportable infectious disease guidelines. Serum 04/18/2025 6:03 AM EDT 04/18/2025 6:45 AM EDT [facility] - 04/18/2025 8:37 AM EDT Specimen is considered negative for HBsAg. us Ludin Jose MD LAB BLOOD ORDERABLES Final Resul t Performing Organization Address [facility] de Phone Number [facility] [address] [facility] * (ABNORMAL) Hepatic Function Panel (04/18/2025 6:03 AM EDT) Total Bilirubin 1.5 0.0 - 1.5 mg/dL 04/18/2025 8:09 AM EDT [facility] Bilirubin, Direct 0.53(H) 0.00 - 0.40 mg/dL 04/18/2025 8:09 AM EDT [facility] AST 37 13 - 39 U/L 04/18/2025 8:09 AM EDT [facility] ALT 25 7 - 52 U/L 04/18/2025 8:09 AM EDT [facility] Alkaline Phosphatase 118 36 - 125 U/L 04/18/2025 8:09 AM EDT [facility] Total Protein 6.7 6.4 - 8.9 g/dL 04/18/2025 8:09 AM EDT [facility] Albumin 3.8 3.5 - 5.7 g/dL 04/18/2025 8:09 AM EDT [facility] Bilirubin, Indirect 0.97 0.00 - 1.10 mg/dL 04/18/2025 8:09 AM EDT [facility] Plasma 04/18/2025 6:03 AM EDT 04/18/2025 6:45 AM EDT us Ludin Jose MD LAB BLOOD ORDERABLES Final Resul t Performing Organization Address City/[facility]/ZIP Co de Phone Number [facility] [address] [facility] * Fibrinogen (04/18/2025 6:03 AM EDT) Fibrinogen 283 218 - 406 mg/dL 04/18/2025 7:08 AM EDT [facility] Plasma 04/18/2025 6:03 AM EDT 04/18/2025 6:45 AM EDT us Ludin Jose MD LAB BLOOD ORDERABLES Final Resul t Performing Organization Address [facility] de Phone Number [facility] [address] [facility] * (ABNORMAL) Differential (04/18/2025 6:03 AM EDT) Neutrophils Relative 38.8(L) 40.0 - 80.0 % 04/18/2025 6:58 AM EDT [facility] Lymphocytes Relative 28.3 15.0 - 45.0 % 04/18/2025 6:58 AM EDT [facility] Monocytes Relative 14.6(H) 0.0 - 12.0 % 04/18/2025 6:58 AM EDT [facility] Eosinophils Relative 17.3(H) 0.0 - 8.0 % 04/18/2025 6:58 AM EDT [facility] Basophils Relative 1.0 0.0 - 1.0 % 04/18/2025 6:58 AM EDT [facility] nRBC 0 0 - 0 /100 WBC 04/18/2025 6:58 AM EDT [facility] Neutrophils Absolute 1,436(L) 1,520 - 8,640 /uL 04/18/2025 6:58 AM EDT [facility] Lymphocytes Absolute 1,047 570 - 4,860 /uL 04/18/2025 6:58 AM EDT [facility] Monocytes Absolute 540 0 - 1,296 /uL 04/18/2025 6:58 AM EDT [facility] Eosinophils Absolute 640 0 - 864 /uL 04/18/2025 6:58 AM EDT [facility] Basophils Absolute 37 0 - 108 /uL 04/18/2025 6:58 AM EDT [facility] Whole Blood 04/18/2025 6:03 AM EDT 04/18/2025 6:45 AM EDT us Ludin Jose MD LAB BLOOD ORDERABLES Final Resul t [facility] [address] [place] [address], [place] * (ABNORMAL) CBC (04/18/2025 6:03 AM EDT) WBC 3.7(L) 3.8 - 10.8 10E3/uL 04/18/2025 6:58 AM EDT [facility] RBC 3.74(L) 3.80 - 5.10 10E6/uL 04/18/2025 6:58 AM EDT [facility] Hemoglobin 11.7 11.7 - 15.5 g/dL 04/18/2025 6:58 AM EDT [facility] Hematocrit 34.5(L) 35.0 - 45.0 % 04/18/2025 6:58 AM EDT [facility] MCV 92.4 80.0 - 100.0 fL 04/18/2025 6:58 AM EDT [facility] MCH 31.3 27.0 - 33.0 pg 04/18/2025 6:58 AM EDT [facility] MCHC 33.9 32.0 - 36.0 g/dL 04/18/2025 6:58 AM EDT [facility] RDW 14.8 11.0 - 15.0 % 04/18/2025 6:58 AM EDT [facility] Platelets 100(L) 140 - 400 10E3/uL 04/18/2025 6:58 AM EDT [facility] MPV 9.5 7.5 - 11.5 fL 04/18/2025 6:58 AM EDT [facility] Whole Blood 04/18/2025 6:03 AM EDT 04/18/2025 6:45 AM EDT us Ludin Jose MD LAB BLOOD ORDERABLES Final Resul t [facility] [address] [facility] * APTT, No Anticoagulant (04/18/2025 6:03 AM EDT) aPTT 28.7 25.5 - 35.0 seconds 04/18/2025 7:08 AM EDT [facility] Plasma 04/18/2025 6:03 AM EDT 04/18/2025 6:45 AM EDT us Ludin Jose MD LAB BLOOD ORDERABLES Final Resul t Performing Organization Address City/[facility]/ZIP Co de Phone Number [facility] [address] [facility] * hCG, quantitative, (04/18/2025 6:03 AM EDT) hCG Quant 0.00 mIU/mL 04/18/2025 8:51 AM EDT [facility] Comment: Approximate Approximate Gestational Age hCG Range (Weeks) mIU/mL 0.2-1 5-50 1-2 50-500 2-3 100-5000 3-4 [id number] 4-5 1000-68080 5-6 [id number] 6-8 [id number] 8-12 [id number] This assay is not approved for, and should not be used to diagnose any condition unrelated to . A Negative hCG result is <5.0 mIU/mL. Plasma 04/18/2025 6:03 AM EDT 04/18/2025 6:45 AM EDT Stephanie [facility] - 04/18/2025 8:51 AM EDT The testing method for beta-HCG is a chemiluminescent immunoassay manufactured by [employer] Concentrations of beta-HCG obtained by different assay methods or kits may vary and cannot be used interchangeably. Beta-HCG results cannot be interpreted as absolute evidence of the presence or absence of malignant disease. us Ludin Jose MD LAB BLOOD ORDERABLES Final Resul t [facility] [address] [place] [address], [place] * Surgical Pathology Exam (04/18/2025 12:00 AM EDT) 04/18/2025 04/19/2025 Stephanie [facility] - 04/18/2025 12:00 AM EDT CASE: [id number] PATIENT: MINDY WADE Clinical History: Living donor liver transplant Pre-Operative Diagnosis: Pre-transplant evaluation for chronic liver disease Post-Operative Diagnosis: Pre-transplant evaluation for chronic liver disease Specimen(s) Submitted: A. [place] gallbladder ; B. common bile duct ; C. [place] liver CPT Code(s): 90640 X 1; 26069 X 1; 73030 X 1; 21461 X 5; 31595 X 1 Additional Information: FINAL DIAGNOSIS: A. Gallbladder, [place], resection: - No significant pathologic change. - Negative for dysplasia or malignancy. B. Common bile duct, excision: - Biliary epithelium with mild reactive change. - Negative for malignancy. C. Liver, [place], resection: - Cirrhosis, mild septal inflammation and burnt out steatohepatitis; clinical history of HCV and alcoholic liver disease. - Negative for neoplasm. Dave Wilkinson MD (Resident) Gross Description: A. Received in formalin, labeled with the patient's name Mindy Wade and A. [place] gallbladder is a 12.0 x 4.5 x [...] of the gallbladder is eisenberg-yellow and velvety. [employer] sections are submitted in cassettes [id number]. (Dave Wilkinson MD (Resident)/ab) B. Received in formalin, labeled with the patient's name Mindy Wade and B. Common bile duct is a piece of eisenberg-white fibrous luminal structure that measures 1.5 cm in length x 0.6 cm in diameter and attached cauterized soft tissue. The specimen is trisected longitudinally and entirely submitted in cassette [id number]. (Dave Wilkinson MD (Resident)/ab) C. Received in formalin, labeled with the patient's name Mindy Wade and C. [place] liver is a 1274-gram, 18.5 x 16.0 [...] x 1.0 cm and appears grossly well-circumscribed. [employer] sections are submitted in cassettes [id number] as follows: C1: Hilar margin. C2-C4: [employer] section of the right lobe. C5-C8: [employer] section of the left lobe, with C5 containing dental detail representative section of the well-circumscribed and subcapsular [...] Pathologist signing this report is located at [facility], [address] [place] [address], Formerly [facility], , CLIA ID: [id number] Ludin Jose MD PATHOLOGY/CYTOLOGY ORDERABLES Fi nal Result [facility] documented in this encounter Visit Diagnoses Diagnosis Immunosuppression (CMS-HCC)- Primary Pre-transplant evaluation for chronic liver disease Generalized edema Edema Melena Blood in stool Localized swelling, mass, or lump of upper extremity, right Living related donor renal transplant 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) End-stage liver disease (CMS-HCC) Other sequelae of chronic liver disease Pre-transplant evaluation for chronic liver disease documented in this encounter Administered Medications Inactive Administered Medications - up to 3 most recent administrations Medication Order MAR Action Action Date Dose Rate Site acetaminophen (TYLENOL) tablet 975 mg 975 mg, Oral, Every 8 hours, First dose on Fri04/27/25 at 1430 Given 05/03/2025 1:16 PM EST 975 mg Given 05/03/2025 5:30 AM EST 975 mg Given 05/02/2025 10:19 PM EST 975 mg albuterol (MBAUJMKIL-ILEROO-EFLVVJGW) 90 mcg/actuation inhaler 2 puff 2 puff, Inhalation, RT every 6 hours PRN, Wheezing, Shortness of Breath, Starting on Fri04/20/25 at 0936, SHAKE WELL Given 04/27/2025 2:48 AM EST 2 puffs Given 04/26/2025 7:35 PM EST 2 puffs Given 04/22/2025 1:08 AM EDT 2 puffs aspirin chewable tablet 81 mg 81 mg, Oral, Daily with breakfast, First dose on Fri04/19/25 at 0800 Given 05/03/2025 8:37 AM EST 81 mg Given 05/02/2025 8:43 AM EST 81 mg Given 05/01/2025 8:56 AM EST 81 mg dextrose 10%-water (D10W) IV soln 12.5 [...] 12:18 AM EST 25 g 999 mL/hr fluconazole (DIFLUCAN) tablet 200 mg 200 mg, Oral, Daily, First dose on Fri04/29/25 at 0900, For 25 doses, DO NOT CRUSH OR CHEW. Given 05/03/2025 8:37 AM EST 200 mg Given 05/02/2025 8:43 AM EST 200 mg Given 05/01/2025 8:56 AM EST 200 mg heparin (porcine) 1,000 unit/mL 10,000 Units in sodium chloride 0.9 % 1,000 mL IRRIGATION As needed, Starting on Fri04/18/25 at 0942, Intra-op Given 04/18/2025 9:42 AM EDT 10,000 Units heparin (porcine) injection 5,000 Units 5,000 Units, Subcutaneous, Every 8 hours scheduled (3 times per day), First dose on 04/18/25 at 1900 Given 05/03/2025 1:16 PM EST 5,000 Units Abdominal Tissue Given 05/03/2025 5:30 AM EST 5,000 Units A bdominal Tissue Given 05/02/2025 9:12 PM EST 5,000 Units L eft Arm hydrOXYzine HCL (ATARAX) 10 mg/5 mL syrup 25 mg 25 mg, Oral, 3 times daily PRN, Other, Starting on 05/01/25 at 0755 Given 05/02/2025 12:54 AM EST 25 mg insulin lispro (humaLOG/ADMELOG) injection 0-12 Units 0-12 Units, Subcutaneous, 3 times daily before meals, First dose on Fri04/29/25 at 1330, HIGH ALERT MEDICATION Given 05/03/2025 1:17 PM EST 2 Units Abdom inal Tissue Given 05/02/2025 5:13 PM EST 2 Units Ab dominal Tissue Given 04/30/2025 5:05 PM EST 2 Units Le ft Arm ipratropium-albuteroL (DUO-NEB) 0.5 mg-3 mg(2.5 mg base)/3 mL nebulizer solution 3 mL 3 mL, Nebulization, RT every 4 hours PRN, Wheezing, Starting on 04/23/25 at 0303 lactated ringers irrigation solution As needed, Starting on 04/18/25 at 0917, Intra-op Given 04/18/2025 1:54 PM EDT 1,000 mLs Given 04/18/2025 9:17 AM EDT 4,000 mLs lidocaine (LIDODERM) 5 % 2 patch 2 [...] Given 05/03/2025 11:20 AM EST 400 mg melatonin tablet Tab 3 mg 3 mg, Oral, At Bedtime (2100), First dose on Fri04/24/25 at 2100, FOR INSOMNIA Given 05/02/2025 9:12 PM EST 3 mg Given 05/02/2025 12:54 AM EST 3 mg Given 04/30/2025 9:13 PM EST 3 mg methocarbamoL (ROBAXIN) tablet 1,000 mg 1,000 mg, Oral, 3 times daily, First dose (after last modification) on Janiya 04/28/25 at 1300 Given 05/03/2025 1:17 PM EST 1,000 mg Given 05/03/2025 8:37 AM EST 1,000 mg Given 05/02/2025 9:12 PM EST 1,000 mg mycophenolate (CELLCEPT) capsule 500 mg 500 mg, Oral, 2 times daily, First dose on Janiya 04/28/25 at 2100, LEVEL 2 HAZARDOUS MEDICATION Given 05/03/2025 8:37 AM EST 500 mg Given 05/02/2025 9:12 PM EST 500 mg Given 05/02/2025 8:43 AM EST 500 mg ondansetron (ZOFRAN) injection 4 mg 4 mg, [...] Given 05/03/2025 7:38 AM EST 15 mg pantoprazole (PROTONIX) EC tablet 40 mg 40 mg, Oral, 2 times daily, First dose on Fri05/02/25 at 2100, Do Not Crush Given 05/03/2025 8:37 AM EST 40 mg Given 05/02/2025 9:12 PM EST 40 mg phenoL (SORE THROAT) 1.4 % spray SprA Mucous Membrane, Every 2 hour PRN, sore throat, Starting on Fri04/20/25 at 0506, Up to 5 sprays onto throat or affected area; keep in place for 15 seconds, then expectorate. Given 04/20/2025 8:40 AM EDT polyethylene glycol (MIRALAX) packet 17 g 17 g, Oral, 2 times daily, First dose (after last modification) on Fri05/02/25 at 2100 Given 05/03/2025 8:41 AM EST 1 7 g Given 05/02/2025 9:13 PM EST 17 g predniSONE (DELTASONE) tablet 20 mg 20 mg, Oral, Daily, First dose on Fri04/26/25 at 0900, Start daily PO dose on POD #8 Given 05/03/2025 8:37 AM EST 20 mg Given 05/02/2025 8:43 AM EST 20 mg Given 05/01/2025 8:56 AM EST 20 mg pregabalin (LYRICA) capsule 100 mg 100 mg, Oral, 2 times daily, First dose (after last modification) on Fri05/02/25 at 2100 Given 05/03/2025 8:37 AM EST 100 mg Given 05/02/2025 9:12 PM EST 100 mg scopolamine (TRANSDERM-SCOP) (1 mg over 3 days) 1 patch 1 patch, Transdermal, Every 72 hours, First dose on Fri04/22/25 at 2000, On hold since 04/23/2025 at 0729 until manually unheld Patch Applied 04/22/2025 8:51 PM EDT 1 patch Behind Right Ear senna-docusate (SENNA-S) 8.6-50 mg per tablet 1 tablet 1 tablet, Oral, 2 times daily, First dose on Fri04/21/25 at 0900 Given 05/03/2025 8:37 AM EST 1 tablet Given 05/02/2025 9:12 PM EST 1 tablet Given 05/02/2025 8:43 AM EST 1 tablet simethicone (MYLICON) chewable tablet 80 mg 80 mg, Oral, 30 min after meals and bedtime, First dose on Fri04/22/25 at 2100, On hold since Fri04/23/2025 at 0729 until manually unheld Given 04/22/2025 8:08 PM EDT 80 mg sodium chloride 0.9 % irrigation As needed, Starting on Fri04/18/25 at 0918, Intra-op Given 04/18/2025 4:04 PM EDT 1,000 mLs Given 04/18/2025 9:18 AM EDT 3,000 mLs sodium chloride 0.9 % IV infusion 20 mL/hr, Intravenous, Continuous, Starting on Fri05/03/25 at 0830, For 12 hours, Normal Saline 0.9% run at KVO only during administration of blood products. New Bag 05/03/2025 10:56 AM EST 20 mL/ hr 20 mL/hr sulfamethoxazole-trimethoprim (BACTRIM) 400-80 mg per tablet 1 tablet 1 tablet, Oral, Daily, First dose on Fri04/29/25 at 0900 Given 05/03/2025 8:37 AM EST 1 tablet Given 05/02/2025 8:43 AM EST 1 tablet Given 05/01/2025 8:56 AM EST 1 tablet tacrolimus (PROGRAF) capsule 2 mg 2 mg, Oral, Daily7, First dose (after last modification) on Fri05/04/25 at 0700, LEVEL 2 HAZARDOUS MEDICATION tacrolimus (PROGRAF) capsule 3 mg 3 mg, [...] 12:17 PM EST 300 mg valGANciclovir (VALCYTE) tablet 450 mg 450 mg, Oral, Daily, First dose on Fri04/29/25 at 0900, LEVEL 2 HAZARDOUS MEDICATION Given 05/03/2025 8:3 7 AM EST 450 mg Given 05/02/2025 8:43 AM EST 450 mg Given 05/01/2025 8:56 AM EST 450 mg documented in this encounter Active and Recently Administered Medications Times are shown in EST. Scheduled Medication Order 05/01/2025 05/02/2025 05/03/2025 acetaminophen (TYLENOL) tablet 975 mg 975 mg, Oral, Every 8 hours, First dose on Fri04/27/25 at 1430 0600 (Given - Provider: Marilee Ramsey RN)1523 (Given - Provider: Jc Terrazas RN) 0054 (Given - Provider: Tisha Rhoades, KONSTANTIN - Comment: in MRI at due time)0843 (Given - Provider: Makenzie Canseco RN)1409 (Given - Provider: Makenzie Canseco RN)2219 (Given - Provider: Tisha Rhoades, KONSTANTIN) 0530 (Given - Provider: Tisha Rhoades, KONSTANTIN)1316 (Given - Provider: Julianne Costello RN) albumin human 25% (COMPLETED)(Linked Group 1) 12.5 g, Intravenous, Every 30 min, First dose on Fri05/01/25 at 0830, For 2 doses, In Emergencies, may administer as rapidly as needed to improve clinical status., Select indication for use: Nephrotic Syndrome, at 100 mL/hr 0855 (New Bag - Provider: Jc Terrazas RN)0930 (New Bag - Provider: Jc Terrazas, KONSTANTIN) albumin human 25% (COMPLETED) 50 mL, Intravenous, [...] RN)2140 (Given - Provider: Tisha Rhoades, KONSTANTIN) 0517 (Given - Provider: Tisha Rhoades RN)1217 (Given - Provider: Makenzie Canseco RN)2112 (Given - Provider: Tisha Rhoades, KONSTANTIN) 0530 (Given - Provider: Tisha Rhoades, KONSTANTIN)1316 (Given - Provider: Juliannesid Costello RN) insulin lispro (humaLOG/ADMELOG) injection 0-12 [...] not met)1320 (Not Given - Provider: Makenzie aCnseco RN - Reason: Order parameters not met)1713 [...] 4 doses 1120 (Given - Provider: Julianne Costello RN) melatonin tablet Tab 3 mg 3 mg, Oral, At Bedtime (2100), First dose on Fri04/24/25 at 2100, FOR INSOMNIA 0054 (Given - Provider: Tisha Rhoades RN - Comment: in MRI at due time)2111 (Given - Provider: Tisha Rhoades RN) methocarbamoL (ROBAXIN) tablet 1,000 mg 1,000 mg, Oral, 3 times daily, First dose (after last modification) on Fri04/28/25 at 1300 0856 (Given - Provider: Jc Terrazas RN)1303 (Given - Provider: Jc Terrazas, KONSTANTIN)2140 (Given - Provider: Tisha Rhoades RN) 0843 (Given - Provider: Makenzie Canseco RN)121 (Given - Provider: Makenzie Canseco RN)2111 (Given - Provider: Tisha Rhoades RN) 0837 (Given - Provider: Julianne Costello RN)1317 (Given - Provider: Julianne Costello RN) mycophenolate (CELLCEPT) capsule 500 mg 500 mg, Oral, 2 times daily, First dose on Janiya 04/28/25 at 2100, LEVEL 2 HAZARDOUS MEDICATION 0856 (Given - Provider: Jc Terrazas RN)213 (Given - Provider: Tisha Rhoades RN) 0843 [...] day, First dose (after last reorder) on Fri04/23/25 at 0800, Dilute each 40 mg vial [...] Rhoades RN) 0841 (Given - Provider: Julianne Costello RN) predniSONE (DELTASONE) tablet 20 mg(Linked Group 2) 20 mg, Oral, Daily, First dose on Fri04/26/25 at 0900, Start daily PO dose on POD #8 0856 (Given - Provider: Jc Terrazas RN) 0843 (Given - Provider: Makenzie Canseco RN) 0837 (Given - Provider: Julianne Costello RN) pregabalin (LYRICA) capsule 100 mg 100 mg, Oral, 2 times daily, First dose (after last modification) on Fri05/02/25 at 2099 2111 (Given - Provider: Tisha Rhoades RN) 0837 (Given - Provider: Julianne Costello RN) pregabalin (LYRICA) capsule 75 mg (CANCELED) 75 mg, Oral, 2 times daily, First dose on Fri04/28/25 at 2099 0856 (Given - Provider: Jc Terrazas RN)0 (Given - Provider: Tisha Rhoades RN) 0843 [...] 0900 0856 (Given - Provider: Jc Terrazas RN)2139 (Given - Provider: Tisha Rhoades RN) 0843 (Given - Provider: Maknezie Canseco RN)2111 (Given - Provider: Tisha Rhoades RN) 0837 (Given - Provider: Julianne Costello RN) simethicone (MYLICON) chewable tablet 80 mg 80 [...] HAZARDOUS MEDICATION 0559 (Given - Provider: Marilee Ramsey, KONSTANTIN) tacrolimus (PROGRAF) capsule 2 mg (CANCELED) 2 mg, Oral, Two times a day, First dose (after last modification) on Fri05/01/25 at 1900, LEVEL 2 HAZARDOUS MEDICATION 1810 [...] 2140 (Given - Provider: Tisha Rhoades RN) 2110 (Given - Provider: Tisha Rhoades RN) ursodioL (ACTIGALL) capsule 300 mg 300 mg, Oral, 2 times daily, First dose on Fri05/02/25 at 1100 1217 (Given - Provider: Makenzie Canseco RN)211 (Given [...] PRN Medication Order 05/01/2025 05/02/2025 05/03/2025 albuterol ([id number] TOLIN) 90 mcg/actuation inhaler 2 puff 2 [...] at 2203 0623 (Given - Provider: Marilee Ramsey RN) hydrOXYzine HCL (ATARAX) 10 mg/5 mL syrup 25 mg 25 mg, Oral, 3 times daily PRN, Other, Starting on 05/01/25 at 0755 0054 (Given - Provider: Tisha Rhoades RN) ipratropium-albuteroL (DUO-NEB) 0.5 mg-3 mg(2.5 mg base)/3 mL nebulizer solution 3 mL 3 mL, Nebulization, RT every 4 hours PRN, Wheezing, Starting on Fri04/23/25 at 0303 ondansetron (ZOFRAN) injection 4 mg [...] Rhoades RN)0738 (See Alternative - Provider: Tisha Rhoades RN)1120 (See Alternative - Provider: Julianne Costello RN)1550 [...] Jc Terrazas RN)1728 (Given - Provider: Jc Terrazas, KONSTANTIN)2145 (Given - Provider: Tisha Rhoades RN) 0202 (Given - Provider: Tisha Rhoades RN)0603 (Given - Provider: Tisha Rhoades RN)1017 (Given - Provider: Makenzie Canseco RN)1410 (Given - Provider: Makenzie Canseco RN)1810 (Given - Provider: Makenzie Canseco RN)2219 (Given - Provider: Tisha Rhoades RN) 0302 (Given - Provider: Tisha Rhoades RN)0738 (Given - Provider: Tisha Rhoades RN)1120 (Given - Provider: uJlianne Costello, KONSTANTIN)1550 (Given - Provider: Julianne Costello [...] 20 mg, Oral, Daily, First dose on Tu04/26/25 at 0900, Start daily PO dose on [...] documented as of this encounter Care Teams Roller Picker Relationship Specialty Start Date End Date Geoff Graves DO [address] [place] [address] PCP - General 02/01/25 Farida Ortega, HARLEEN [address] [place] [id number] Referring Physician Gastroenterology 09/02/23 documented as of this encounter
--- OUTSIDE RECORDS SUMMARY | 2025-04-18 07:18 | XMS_ITS | Encounter Summary ---
Author Organization [facility] Address [address] [place] [id number] Care Team Providers Care Park Interpreter Name Role Phone Yonatan Graves Primary Care Provider Farida Ortega ACETYLENE BURNER Unavailable [phone] Source Comments This information has been disclosed [...] release of HIV test results or diagnoses. [id number] Health Reason for Visit * Auth/Cert (Routine) Specialty Diagnoses / Procedures Referred By Roselyn t Referred To Contact Diagnoses Pre-transplant evaluation for chronic liver disease [Z01.818] Procedures LIVING DONOR TRANSPLANT RECIPIENT [facility] PERIOP [address] [place] [address] Phone: tel: Referral ID Status Reason Start Date Expiration Date Visits Re quested Visits Authorized [id number] 1 1 Encounter Details Date Type Department Care Team (Late st Contact Info) Description 04/18/2025 8:18 AM EDT Anesthesia Event [facility] PERIOP [address] [place] [address] Richard Li MD [address] [facility] Anesthesiology [place], [place] [id number] Fer Mccormick DO [address] [place] [address]. [place] [id number] Anesthesia Record Procedure Summary Procedure Name Responsible Anesthesiologist Anesthesia Start Time Anesthesia Stop Time LIVING DONOR LIVER TRANSPLANT (Abdomen) Richard Li MD 04/18/25 0818 04/18/25 1833 Events Date Time Event Comment 04/18/2025 0818 An Start 0818 An Start Data 0824 An Induction 0828 An Intubation 0912 Time Out 0957 Quick Note Right radial a. line down. Unable to draw. Bad waveform. Replacing on left. 1212 Quick Note Donor liver in room 1239 Anhepatic Phase 1326 Hepatic Reperfusion 1551 Quick Note Peak airway pre ssure increased to 40. No rashes, gave albuterol, magnesium, ketamine, suctioned ETT, ensured ETT was 21 cm at teeth. Has bilateral wheezes. Started epi and deeped the anesthetic. She informed us preop her asthma has been acting up a lot lately and needing albuterol daily. This seems to be her reactive airway disease. 1655 Provider Handoff Type of Ane sthetic: {Type of Anesthesia:1818388961} Airway: Type: {Airway:5708188390} Difficult BMV / Intubation: {YES/NO WITH YES WILDCARD:16301844} Vascular Access: {Vascular Access:1352287002} Monitors: {Monitor:4013619674} Patient Specific Management Goals: {yes/no :59773020} Outstanding Issues to Address: {Outstanding Issues:9376502187} Disposition: {Disposition:7104906452} 1804 An Emergence 1819 Transport to ICU 1832 An Stop Meds Name Total fentanyl (SUBLIMAZE) injection 50 mcg/ml 50 mcg propofol (DIPRIVAN) injection 10 mg/ml 2 00 mg vecuronium (NORCURON) injection 26 mg heparin (porcine) injection 1,000 units/ mL 3,000 Units calcium chloride 100 mg/ml (10%) injecti on IV 4 g sodium bicarbonate (NEUT) 4.2% injection 50 mEq acetaminophen (OFIRMEV) IV for Weight 50 kg or Greater 1,000 mg ketamine (KETALAR) injection 10 mg/mL 20 mg lidocaine (PF) 20 mg/mL (2%) injection - Intravenous 100 mg phenylephrine (AMADOU-SYNEPHRINE) injection 200 mcg magnesium sulfate (4 mEq/mL) 50% injecti on 2 g vancomycin (VANCOCIN) 1,500 mg in sodium chloride 0.9 % 250 mL [id number] 1,500 mg ciprofloxacin (CIPRO) 400 mg in dextrose 5% 200 mL IVPB 800 mg EPINEPHrine (ADRENALIN) 10 mg in sodium chloride 0.9 % 250 mL infusion 470 mcg insulin (HumuLIN R) infusion - TITRATABLE NURSING PROTOCOL (HYPERGLYCEMIA) 12.95 Units methylPREDNISolone sodium rivas ccinate (SOLU-medrol) 500 mg in sodium chloride 0.9 % 100 mL IVPB 500 mg norepinephrine (LEVOPHED) 16 mg/250 mL ( 64 mcg/mL) infusion 1,940 mcg vasopressin (VASOSTRICT) 40 units in sod ium chloride 0.9% 100 mL infusion 16.08 Units norepinephrine (LEVOPHED) injection 1000 mcg/ml 144 mcg ephedrine injection 50 mg/mL 10 mg EPINEPHrine 10 mcg/mL in D5W 10 mL IV sy ringe 40 mcg albuterol (PROVENTIL;VENTOLIN;PROAIR) in haler 14 puff propofol (DIPRIVAN) 10 mg/ml infusion - 100mL VIAL SIZE 297.36 mg neostigmine (PROSTIGMINE) 1 mg/mL inject ion 5 mg glycopyrrolate (ROBINUL) 0.2 mg/mL injec tion 0.8 mg lactated ringers infusion 0 mL electrolyte-r (pH 7.4)(NORMOSOL-R pH 7.4 ) IV soln 1000 mL 4,500 mL 0.9% NaCl infusion 0 mL albumin human bottle 5% 1,500 mL * Agents Name N2O O2 N2O Air Sevoflurane * Blood Name Total PRBC 1,050 mL FFP 1,200 mL PLATELETS 500 mL CRYOPRECIP 150 mL Lines, Drains, and Airways Type Details Placement Removal Drain 04/18/25; 1754; osto my bag; sub hepatic #1; Abdomen; Right, Superior; 19 Fr. 04/18/25 1754 by Mary Fink, KONSTANTIN Drain 04/18/25; 1754; bibi r #2; Abdomen; Right, Superior; 19 Fr. 04/18/25 1754 by Mary Fink, KONSTANTIN Anesthesia Airway Device 07/28/24; 1247; Nasal Cannula Salter; I.V.; 04/19/25; Not present upon assessment 07/28/24 1247 by Dimas Marques CRNA 04/19/25 0000 by Estela Mckeon RN Peripheral IV 04/18/25; 0630; 20 G ; Left, Proximal; Antecubital; Alcohol; None; Standard; Tolerated well 04/18/25 0630 by Hedy Robison RN 04/20/25 2000 by Olga Macias RN Arterial Line 04/18/25; 0820 (crea alea via procedure documentation); Right; Radial; Chlorhexidine 04/18/25 0820 by Yonatan Chand MD 04/18/25 1831 by Enedina Spear RN Introducer 04/18/25; 0830 (crea alea via procedure documentation); OR; Sterile; 04/19/25; 1200 (Removed by HILARY PARHAM); 9F double lumen introducer (MAC) 04/18/25 0830 by Becky Goodman MD 04/19/25 1200 by Katharine Macias RN Urethral Catheter 04/18/25; 0901; Non-latex, Straight-tip; 16 Fr.; Other (Comment) (under anesthesia); Per order 04/18/25 0901 by Piero Sharpe RN 04/19/25 1400 by Katharine Macias RN Anesthesia Airway Device 04/18/25; 0907; I.V.; Standard; Easy Mask Ventilation; 90 mm oral airway (yellow); [employer] Video MAC; Mac; 3; Oral; Grade I View; ETT; 8 mm; Cuffed; 7 mL; 21 cm; Stylet Standard; 1; Resident; MD Maxine; Capnograph; Yes; 04/19/25; Not present upon assessment 04/18/25 0907 by Becky Goodman MD 04/19/25 0000 by Estela Mckeon RN Arterial Line 04/18/25; 1021 (crea alea via procedure documentation); Left; Radial; Chlorhexidine 04/18/25 1021 by Becky Goodman MD 04/19/25 1400 by Katharine Macias RN Incision 04/18/25; 1756; Abdo men; N/A; sergio, gauze and tegaderm; 04/23/25; 1016 04/18/25 1756 by Mary Fink RN 04/23/25 1016 by Viktor Kennedy RN Peripheral IV 04/18/25; 1832; 14 G ; Anterior, Right; Forearm; Standard 04/18/25 1832 by Enedina Spear RN 04/21/25 1800 by Jc Terrazas RN Peripheral IV 04/18/25; 1832; 18 G ; Left, Posterior; Hand; Standard 04/18/25 1832 by Enedina Spear RN 04/20/25 2000 by Olga Macias RN documented in this encounter Social History Tobacco Use Types Packs/Day Years Used Date Smoking Tobacco: Former Cigarettes 0.3 1.2 0 07/22/2014 - 07/22/2015 Smokeless Tobacco: Never Alcohol Use Standard Drinks/Week Comments Not Currently 0 (1 standard drink = 0.6 oz pur e alcohol) [facility] Utilities Answer Date Recorded In the past [...] were you homeless or living in a group home (including now)? No 04/19/2025 Yearly Questionnaire Answer [...] Answer Date of Assessment Author Peripheral Vascular (WDL) WDL 04/18/2025 6:26 PM EDT Enedina Spear RN * Question Answer Date of Assessment Author Anti-Embolism Devices Bilateral;Sequenti al compression devices, below knee 04/19/2025 4:00 AM EDT Enedina Spear RN Anti-Embolism Intervention On 04/19/2025 12:00 AM EDT Enedina Spear RN documented as of this encounter Progress Notes * Richard Li MD - 04/19/2025 4:30 AM EDT Anesthesia Post Note Patient: Mindy Wade Procedure(s) Performed: Procedure(s): LIVING DONOR LIVER TRANSPLANT Anesthesia type: general endotracheal Patient location: ICU Airway: Patent Post pain: Adequate analgesia Nausea / Vomiting: Absent Post-operative Hydration Status: Adequate Post assessment: no apparent anesthetic complications Last Vitals: Vitals: 04/18/25 2330 04/19/25 0000 04/19/25 0100 04/19/25 0354 BP: 116/80 110/74 BP Location: Left upper arm Patient Position: Lying BP Cuff Size: Regular Pulse: 90 84 Resp: 8 8 Temp: 98.3 ??F (36.8 ??C) TempSrc: Axillary SpO2: 100% 100% 98% 97% Weight: Height: Last Temperature: 98.3 ??F (36.8 ??C) (04/19/2025 12:00 AM) Post vital signs: stable Level of consciousness: awake and alert Complications: There were no known notable events for this encounter. documented in this encounter H&P Notes * Mario Chan MD - 04/15/2025 2:32 PM EDT Images from the original note were not included. [facility] DEPARTMENT OF ANESTHESIOLOGY PRE-PROCEDURAL EVALUATION Mindy Wade is a 35 y.o. 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 I have reviewed the History and Physical Exam, any relevant changes are noted in the anesthesia pre-operative evaluation. Cardiovascular: Hypertension is. (-) CAD, cardiomyopathy, CABG/stent, dysrhythmias. ROS comment: TTE 02/01/25: - Left ventricle: The cavity [...] baseline or with provocation, shows a very suqmsbgenz-fg-oezz atrial level shunt. There is a shunt [...] ms QT: 480 ms QTc: 491 ms Neuro/Muscoloskeletal/Psych: (+) anxiety. Seizures. Pulmonary: (+) asthma (Pt. reports increazsed use of albuterol as of late. Breathing okay today.). Active tuberculosis (positive quantiferon. no active TB symptoms, completed therapy). (-) recent URI. ROS comment: Chest CT 03/16/25: HEART: The heart is normal in size. VASCULAR STRUCTURES: Aorta and main pulmonary artery are normal in caliber. Impression: No focal infiltrates/consolidations. Once again seen, upper lobe predominant, small noncalcified and groundglass lung nodular foci, can be seen in smoking-related respiratory bronchiolitis. No suspicious lung nodule/mass. Cirrhotic morphology of the liver, splenomegaly. Sequela of healed granulomatous disease. GI/Hepatic/Renal: (+) liver disease. Hepatitis. (-) renal disease. Comments: EGD 07/28/24: - Small (< 5 mm) esophageal varices with no bleeding and no stigmata of recent bleeding. - Gastric antral vascular ectasia without bleeding. - A single lesion diagnostic of aberrant pancreas was found in the stomach. - Normal duodenal bulb and second portion of the duodenum. - No specimens collected. 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 Patient with prior history of IVDU; last use was in 2016. Achieved SVR from HCV with Harvoni in 2018. Abstinent from EtOH since 07/2023. Decompensated by ascites (not requiring paracenteses) and jaundice. MELD 3.0: 11 at 04/11/2025 2:53 PM Calculated from: Serum Creatinine: 0.55 mg/dL (Using min of 1 mg/dL) at 04/11/2025 2:35 PM Serum Sodium: 139 mmol/L (Using max of 137 mmol/L) at 04/11/2025 2:35 PM Total Bilirubin: 1.4 mg/dL at 04/11/2025 2:35 PM Serum Albumin: 3.7 g/dL (Using max of 3.5 g/dL) at 04/11/2025 2:35 PM INR(ratio): 1.2 at 04/11/2025 2:53 PM Age at listin years Sex: Female at 04/11/2025 2:53 PM The patient's liver disease is decompensated by: Ascites: Currently managed with: dietary changes and diuretics Portal HTN/Varices: last EGD on 07/28/24 demonstrated small nonbleeding varices. Hepatic encephalopathy: not currently experiencing; not requiring lactulose or rifaximin. Endo/Other: (+) DVT. (-) diabetes mellitus. Past 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 Past 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: Diagnosis [...] No Exercise No Seat Belt Yes Social Drivers of Health Financial Resource Strain: Patient Declined (08/05/2023) Received from [facility] Overall Financial Resource Strain (CARDIA) Difficulty [...] Physical Activity: Inactive (08/05/2023) Received from [facility] Exercise Vital Sign Days of Exercise per Week: 0 days Minutes of Exercise per Session: 0 min Stress: Stress Concern Present (08/05/2023) Received from [facility] [employer] - Occupational Stress Questionnaire Feeling of Stress : Rather much Social Connections: Not At Risk (08/05/2023) Received from [facility] Family and Community Support If for [...] No Physically Abused: No Sexually Abused: No Medications Allergies: Allergies[1] Home Meds: Home Medications Medication Sig Taking? Last Dose carvediloL (COREG) 3.125 MG tablet Take 1 tablet (3.125 mg total) by mouth 2 times a day with meals. Patient taking differently: Take 1 tablet (3.125 mg total) by mouth at bedtime. furosemide (LASIX) 20 MG tablet TAKE 3 [...] TAKE 3 TABLETS BY MOUTH TWICE DAILY Inpatient Meds: Scheduled: Continuous: electrolyte PRN: Vital Signs Wt Readings from Last 3 Encounters: 04/11/25 157 lb 12.8 oz (71.6 kg) 02/07/25 152 lb (68.9 kg) 02/07/25 152 lb 8 oz (69.2 kg) Ht Readings from Last 3 Encounters: 04/11/25 5' 5 (1.651 m) 01/10/25 5' 5 (1.651 m) 12/20/24 5' 5 (1.651 m) Temp Readings from Last 3 Encounters: 04/11/25 98.3 ??F (36.8 ??C) (Oral) 02/07/25 98.2 ??F (36.8 ??C) (Oral) 02/07/25 98.2 ??F (36.8 ??C) (Oral) BP Readings from Last 3 Encounters: 04/11/25 109/61 02/07/25 111/61 02/07/25 111/61 Pulse Readings from Last 3 Encounters: 04/11/25 84 02/07/25 71 02/07/25 71 SpO2 Readings from Last 3 Encounters: 04/11/25 98% 02/07/25 100% 02/07/25 100% Physical Exam Airway: Mallampati: II Mouth Opening: >2 FB TM distance: > = 3 FB Neck ROM: full Dental: Pulmonary: - normal exam Cardiovascular: - normal exam Rhythm: regular Rate: normal Neuro/Musculoskeletal/Psych: - normal neurological exam. Abdominal: - normal exam Current OB Status: Other Findings: Laboratory Data Lab Results Component Value Date WBC 3.1 (L) 04/11/2025 HGB 11.8 04/11/2025 HCT 34.0 (L) 04/11/2025 MCV 92.9 04/11/2025 PLT 106 (L) 04/11/2025 No results found for: ABORH Lab Results Component Value Date GLUCOSE 84 04/11/2025 BUN 9 04/11/2025 CO2 25 04/11/2025 CREATININE 0.55 (L) 04/11/2025 K 3.8 04/11/2025 NA 139 04/11/2025 CL 109 04/11/2025 CALCIUM 8.7 04/11/2025 ALBUMIN 3.7 04/11/2025 ALBUMIN 3.7 04/11/2025 PROT 6.5 04/11/2025 PROT 6.5 04/11/2025 ALKPHOS 116 04/11/2025 ALKPHOS 116 04/11/2025 ALT 27 04/11/2025 ALT 27 04/11/2025 AST 42 (H) 04/11/2025 AST 42 (H) 04/11/2025 BILITOT 1.4 04/11/2025 BILITOT 1.4 04/11/2025 Lab Results Component Value Date INR 1.2 (H) 04/11/2025 Lab Results Component Value Date HCGQUANT 0.10 04/11/2025 Anesthesia Plan ASA 4 Female and current non-smoker Anesthesia Type: general endotracheal. PONV Risk Factors: female, current non-smoker Induction: Intravenous induction. Additional comments: GETA, PIV x several with MAC and [place]. Will pre-treat with albuterol and anxiolytic. Radial a.line,standard monitors, ICU post-op. Anesthetic plan and risks discussed with patient and spouse. Plan, alternatives, and risks of anesthesia, including , have been explained to and discussed with the patient/legal guardian. By my assessment, the patient/legal guardian understands and agrees. Scenario presented in detail. Questions answered. Use of blood products discussed with patient and spouse who consented to blood products. Plan discussed with attending and resident. [1] Allergies Allergen Reactions Amoxicillin Rash Reports has taken since childhood without issue. Morphine Rash and Other (See Comments) Penicillins Rash and Other (See Comments) states has had it before and done fine, states allergy from childhood documented in this encounter Procedure Notes * Mario Chan MD - 04/18/2025 10:22 AM EDTAssociated Order(s): Insert Arterial Line Insert Arterial Line Date/Time: 04/18/2025 8:20 AM Performed by: Yonatan Chand MD Authorized by: Mario Chan MD Verbal consent obtained?: Yes Consent given by: Patient Risks and benefits: Risks, benefits and alternatives were discussed Patient states understanding of procedure being performed: Yes Required items: Required blood products, implants, devices and special equipment available Patient identity confirmed: Arm band and hospital-assigned identification number Time out: Immediately prior to the procedure a time out was called Indications: Indications: hemodynamic monitoring and multiple ABGs Pre-procedure details: Skin preparation: Chlorhexidine Sedation: Sedation type: Deep Anesthesia: Anesthesia method: None Procedure details: Laterality: Right Location: Radial artery Catheter type: 20g short Placement technique: Ultrasound guided Number of attempts: 1 Transducer: waveform confirmed Post-procedure details: Post-procedure: Sterile dressing applied and sutured Complications: None, procedure tolerated well Comments: I was present for a.line placement. * Mario Chan MD - 04/18/2025 10:21 AM EDTAssociated Order(s): Insert Arterial Line Insert Arterial Line Date/Time: 04/18/2025 10:21 AM Performed by: Becky Goodman MD Authorized by: Mario Chan MD Verbal consent obtained?: Yes Consent given by: Patient Risks and benefits: Risks, benefits and alternatives were discussed Patient states understanding of procedure being performed: Yes Required items: Required blood products, implants, devices and special equipment available Patient identity confirmed: Arm band and hospital-assigned identification number Time out: Immediately prior to the procedure a time out was called Indications: Indications: hemodynamic monitoring and multiple ABGs Pre-procedure details: Skin preparation: Chlorhexidine Sedation: Sedation type: Deep Anesthesia: Anesthesia method: None Procedure details: Laterality: Left Location: Radial artery Catheter type: 20g short Placement technique: Ultrasound guided Number of attempts: 1 Transducer: waveform confirmed Post-procedure details: Post-procedure: Sterile dressing applied and sutured Complications: None, procedure tolerated well * Mario Chan MD - 04/18/2025 10:19 AM EDTAssociated Order(s): [place] Mehreen Cath [place] Mehreen Cath Date/Time: 04/18/2025 8:30 AM Performed by: Becky Goodman MD Authorized by: Mario Chan MD Verbal consent obtained?: Yes Consent given by: Patient Risks and benefits: Risks, benefits and alternatives were discussed Patient states understanding of procedure being performed: Yes Required items: Required blood products, implants, devices and special equipment available Patient identity confirmed: Arm band and hospital-assigned identification number Time out: Immediately prior to the procedure a time out was called PA catheter indications: Hemodynamic monitoring Location at time of catheter placement: OR Conditions of catheter placement: Sterile Preparation: Skin prepped with 2% chlorhexidine Catheter type: Pulmonary artery catheter Location: Right internal jugular Number of attempts: 1 Successful introducer placement: Yes PA catheter advanced: While monitoring the appropriate wave patterns on the bedside monitor Chest x-ray ordered: To be done by ICU team post op PA catheter complications: None * Mario Chan MD - 04/18/2025 9:50 AM EDTAssociated Order(s): Central Line Central Line Date/Time: 04/18/2025 8:30 AM Performed by: Becky Goodman MD Authorized by: Mario Chan MD Verbal consent obtained?: Yes Consent given by: Patient Risks and benefits: Risks, benefits and alternatives were discussed Patient states understanding of procedure being performed: Yes Required items: Required blood products, implants, devices and special equipment available Patient identity confirmed: Verbally with patient, arm band and hospital- assigned identification number Time out: Immediately prior to the procedure a time out was called Catheter type: 9F dual lumen introducer (MAC) Indications: Vascular access Local anesthetic: None Location at time of line placement: OR Conditions of line placement: Sterile Preparation: Skin prepped with 2% chlorhexidine Catheter fully inserted (hub at the skin): Yes Insertion guided by: Ultrasound guided Number of attempts: 1 Successful placement: Yes Sutured: Yes Complications: none documented in this encounter Plan of Treatment Not on file documented as of this encounter Procedures Procedure Name Priority Date/Time Associated Diagnosis Comments INSERT ARTERIAL LINE Routine 04/18/2025 10:21 AM EDT HC ANESTHESIA PULMONARY ARTERY CATHETER Routine 04/18/2025 8:30 AM EDT SWAN MEHREEN Routine 04/18/2025 8:30 AM EDT HC ANESTHESIA DUAL LUMEN INTRODUCER (MAC) CENTRAL LINE KIT Routine 04/18/2025 8:30 AM EDT CENTRAL LINE SINGLE LUMEN PERFORMABLE Routine 04/18/2025 8:30 AM EDT INSERT ARTERIAL LINE Routine 04/18/2025 8:20 AM EDT documented in this encounter Results * Insert Arterial Line (04/18/2025 10:21 AM EDT) Mario Leblanc MD - 04/18/2025 10:21 AM EDT Mario Chan MD 04/18/2025 2:03 PM Insert Arterial Line Date/Time: 04/18/2025 10:21 AM Performed by: Becky Goodman MD Authorized by: Mario Chan MD Verbal consent obtained?: Yes Consent given by: Patient Risks and benefits: Risks, benefits and alternatives were discussed Patient states understanding of procedure being performed: Yes Required items: Required blood products, implants, devices and special equipment available Patient identity confirmed: Arm band and hospital-assigned identification number Time out: Immediately prior to the procedure a time out was called Indications: Indications: hemodynamic monitoring and multiple ABGs Pre-procedure details: Skin preparation: Chlorhexidine Sedation: Sedation type: Deep Anesthesia: Anesthesia method: None Procedure details: Laterality: Left Location: Radial artery Catheter type: 20g short Placement technique: Ultrasound guided Number of attempts: 1 Transducer: waveform confirmed Post-procedure details: Post-procedure: Sterile dressing applied and sutured Complications: None, procedure tolerated well Mario Chan MD IV THERAPY ORDERABLES Rosa lerma Result * CENTRAL LINE SINGLE LUMEN PERFORMABLE, HC ANESTHESIA PULMONARY ARTERY CATHETER (04/18/2025 8:30 AM EDT) Mario Leblanc MD - 04/18/2025 8:30 AM EDT Mario Chan MD 04/18/2025 2:03 PM [place] Mehreen Cath Date/Time: 04/18/2025 8:30 AM Performed by: Becky Goodman MD Authorized by: Mario Chan MD Verbal consent obtained?: Yes Consent given by: Patient Risks and benefits: Risks, benefits and alternatives were discussed Patient states understanding of procedure being performed: Yes Required items: Required blood products, implants, devices and special equipment available Patient identity confirmed: Arm band and hospital-assigned identification number Time out: Immediately prior to the procedure a time out was called PA catheter indications: Hemodynamic monitoring Location at time of catheter placement: OR Conditions of catheter placement: Sterile Preparation: Skin prepped with 2% chlorhexidine Catheter type: Pulmonary artery catheter Location: Right internal jugular Number of attempts: 1 Successful introducer placement: Yes PA catheter advanced: While monitoring the appropriate wave patterns on the bedside monitor Chest x-ray ordered: To be done by ICU team post op PA catheter complications: None us Mario Chan MD IV THERAPY ORDERABLES Rosa l Result * CENTRAL LINE SINGLE LUMEN PERFORMABLE, ANESTHESIA DUAL LUMEN INTRODUCER (MAC) CENTRAL LINE KIT (04/18/2025 8:30 AM EDT) Mario Leblanc MD - 04/18/2025 8:30 AM EDT Mario Chan MD 04/18/2025 2:03 PM Central Line Date/Time: 04/18/2025 8:30 AM Performed by: Becky Goodman MD Authorized by: Mario Chan MD Verbal consent obtained?: Yes Consent given by: Patient Risks and benefits: Risks, benefits and alternatives were discussed Patient states understanding of procedure being performed: Yes Required items: Required blood products, implants, devices and special equipment available Patient identity confirmed: Verbally with patient, arm band and hospital-assigned identification number Time out: Immediately prior to the procedure a time out was called Catheter type: 9F dual lumen introducer (MAC) Indications: Vascular access Local anesthetic: None Location at time of line placement: OR Conditions of line placement: Sterile Preparation: Skin prepped with 2% chlorhexidine Catheter fully inserted (hub at the skin): Yes Insertion guided by: Ultrasound guided Number of attempts: 1 Successful placement: Yes Sutured: Yes Complications: none Mario Chan MD PROCEDURE/MINOR SURGICAL O RDERABLES Final Result * Insert Arterial Line (04/18/2025 8:20 AM EDT) Mario Leblanc MD - 04/18/2025 8:20 AM EDT Mario Chan MD 04/18/2025 2:02 PM Insert Arterial Line Date/Time: 04/18/2025 8:20 AM Performed by: Yonatan Chand MD Authorized by: Mario Chan MD Verbal consent obtained?: Yes Consent given by: Patient Risks and benefits: Risks, benefits and alternatives were discussed Patient states understanding of procedure being performed: Yes Required items: Required blood products, implants, devices and special equipment available Patient identity confirmed: Arm band and hospital-assigned identification number Time out: Immediately prior to the procedure a time out was called Indications: Indications: hemodynamic monitoring and multiple ABGs Pre-procedure details: Skin preparation: Chlorhexidine Sedation: Sedation type: Deep Anesthesia: Anesthesia method: None Procedure details: Laterality: Right Location: Radial artery Catheter type: 20g short Placement technique: Ultrasound guided Number of attempts: 1 Transducer: waveform confirmed Post-procedure details: Post-procedure: Sterile dressing applied and sutured Complications: None, procedure tolerated well Comments: I was present for a.line placement. Mario Chan MD IV THERAPY ORDERABLES Rosa l Result documented in this encounter Visit Diagnoses * Transfer of Care - Richard Li MD - 04/18/2025 6:27 PM EDT Anesthesia Transfer of Care Note Patient: Mindy Wade Procedure(s) Performed: Procedure(s): LIVING [employer]OR LIVER TRANSPLANT Patient location: ICU Anesthesia type: general endotracheal Airway Device on Arrival to PACU/ICU: Endotracheal Tube IV Access: Peripheral and Central Line Monitors Recommended to be Used During PACU/ICU: Arterial Line and Standard Monitors Outstanding Issues to Address: None Level of Consciousness: sedated Post vital signs: Vitals: 04/18/25 1826 BP: 114/62 Pulse: 93 Resp: 20 Temp: SpO2: 99% Complications: No notable events documented. Date 04/17/25 1500 - 04/18/25 0659(Not Admitted) 04/18/25 0700 - 04/19/25 0659 Shift 2171-3003 6024-5328 24 Hour Total 5671-2114 5548-5299 9236-1948 24 Hour Total INTAKE I.V. 3000(42.4) 1500(21.2) 4500(63.6) Volume (mL) (electrolyte-R (pH 7.4) (NORMOSOL-R pH 7.4) IV solution) 3000 1500 4500 Blood 2750 2450 5200 Cell Saver - [...] (Transfuse Cryoprecipitate) 75 75 IV Piggyback 2098.3 200 2298.3 Volume (mL) (methylPREDNISolone sodium succinate (SOLU-medrol) 500 mg in sodium chloride 0.9 % 100 mL IVPB) 100 100 Volume (mL) (vancomycin (VANCOCIN) 1,500 mg in sodium chloride 0.9 % 250 mL [id number]) 298.3 298.3 Volume (mL) (ciprofloxacin (CIPRO) 400 mg in dextrose 5% 200 mL IVPB) 200 200 400 Volume (mL) (albumin human bottle 5%) 1500 1500 Shift Total(mL/kg) 7848.3(110.9) 4150(58.6) 99978.3(169.6) OUTPUT Urine 500(0.9) 350 850 Urine 500 350 850 Other 350 350 Other 350 350 Blood 7600 7600 Est Blood Loss 7600 7600 Shift Total(mL/kg) 500(7.1) 8300(117.3) 8800(124.4) Weight (kg) 70.8 70.8 70.8 70.8 70.8 70.8 documented in this encounter Administered Medications Inactive Administered Medications - up to 3 most recent administrations Medication Order MAR Action Action Date Dose Rate Site acetaminophen (OFIRMEV) Soln Intravenous, Administer over 15 Minutes, PRN - One Step Medication Only, Starting on Fri04/18/25 at 1451, Anesthesia Intra-op Given 04/18/2025 2:51 PM EDT 1,000 mg albumin human bottle 5% Intravenous, Continuous - One Step Medications Only, Starting on Fri04/18/25 at 0941, Anesthesia Intra-op New Bag 04/18/2025 12:37 PM EDT New Bag 04/18/2025 11:17 AM EDT New Bag 04/18/2025 9:48 AM EDT albuterol ([id number]) 90 mcg/actuation inhaler Inhalation, PRN - One Step Medication Only, Starting on Fri04/18/25 at 1532, Anesthesia Intra-op Given 04/18/2025 6:18 PM EDT 6 puffs Given 04/18/2025 3:32 PM EDT 8 puffs calcium chloride injection Intravenous, PRN - One Step Medication Only, Starting on Fri04/18/25 at 0943, Anesthesia Intra-op Given 04/18/2025 1:47 PM EDT 1 g Given 04/18/2025 1:26 PM EDT 1 g Given 04/18/2025 12:20 PM EDT 1 g ciprofloxacin (CIPRO) 400 mg in dextrose 5% 200 mL IVPB 400 mg, Intravenous, at 200 mL/hr, Once, On Fri04/18/25 at 0600, For 1 dose, Begin infusion 120 minutes prior to incision PROTECT FROM LIGHT., Pre-opIndications:Pre-transplant evaluation for chronic liver disease Bolus 04/18/2025 5:15 PM EDT 400 mg New Bag 04/18/2025 8:54 AM EDT 400 mg electrolyte-R (pH 7.4) (NORMOSOL-R pH 7.4) IV solution Intravenous, Continuous - One Step Medications Only, Starting on Fri04/18/25 at 0818, Anesthesia Intra-op New Bag 04/18/2025 4:08 PM EDT New Bag 04/18/2025 3:19 PM EDT New Bag 04/18/2025 1:20 PM EDT ePHEDrine sulfate IV solution Intravenous, PRN - One Step Medication Only, Starting on Fri04/18/25 at 0934, Anesthesia Intra-op Given 04/18/2025 9:34 AM EDT 10 mg EPINEPHrine (ADRENALIN) 10 mg in sodium chloride 0.9 % 250 mL infusion Intravenous, at 0-22.5 mL/hr, Continuous, Starting on Fri04/18/25 at 0730, For 24 hours, FOR O.R. USE ONLY. Titrate in O.R. based on MAP and/or ventricular function. CENTRAL LINE PREFERRED: Peripheral line may be used for urgent initiation prior to placement of central line., Pre-op (inpatient signed and held), To be given: intra-op Rate/Dose Change 04/18/2025 5:21 PM EDT 1 mcg/min 1.5 mL/hr Restarted 04/18/2025 3:49 PM EDT 2 mcg/min 3 mL/hr Rate/Dose Change 04/18/2025 1:50 PM EDT 2 mcg/min 3 mL/hr EPINEPHrine 10 mcg/mL in D5W 10 mL IV syringe Intravenous, PRN - One Step Medication Only, Starting on Fri04/18/25 at 0937, Anesthesia Intra-op Given 04/18/2025 9:46 AM EDT 10 mcg Given 04/18/2025 9:41 AM EDT 10 mcg Given 04/18/2025 9:39 AM EDT 10 mcg fentaNYL (SUBLIMAZE) injection Intravenous, PRN - One Step Medication Only, Starting on Fri04/18/25 at 0824, Anesthesia Intra-op Given 04/18/2025 9:22 AM EDT 25 mcg Given 04/18/2025 8:24 AM EDT 25 mcg glycopyrrolate (ROBINUL) injection Intravenous, PRN - One Step Medication Only, Starting on Fri04/18/25 at 1833, Anesthesia Intra-op Given 04/18/2025 6:33 PM EDT 0.8 mg heparin (porcine) injection Intravenous, PRN - One Step Medication Only, Starting on Fri04/18/25 at 1245, Anesthesia Intra-op Given 04/18/2025 12:45 PM EDT 3,000 Units insulin (HumuLIN R) infusion - TITRATABLE NURSING PROTOCOL (HYPERGLYCEMIA) 0-28 Units/hr (0-28 mL/hr), Intravenous, Continuous, Starting on Fri04/18/25 at 0730, For 24 hours, FOR O.R. USE only. Titrate in O.R. for blood glucose management HIGH ALERT MEDICATION, Pre-op (inpatient signed and held), To be given: intra-op New Bag 04/18/2025 2:14 PM EDT 3 Units/hr 3 mL/hr ketamine (KETALAR) injection Intravenous, PRN - One Step Medication Only, Starting on Fri04/18/25 at 1602, Anesthesia Intra-op Given 04/18/2025 4:02 PM EDT 20 mg lactated Ringers IV infusion Intravenous, Continuous - One Step Medications Only, Starting on Fri04/18/25 at 0818, Anesthesia Intra-op New Bag 04/18/2025 8:18 AM EDT lidocaine (PF) 2% (20 mg/mL) Soln Epidural, PRN - One Step Medication Only, Starting on Fri04/18/25 at 0824, Anesthesia Intra-op Given 04/18/2025 8:24 AM EDT 100 mg magnesium sulfate 500 mg/mL (50 %) injection Intravenous, PRN - One Step Medication Only, Starting on Fri04/18/25 at 1602, Anesthesia Intra-op Given 04/18/2025 4:02 PM EDT 2 g methylPREDNISolone sodium succinate (SOLU-medrol) 500 mg in sodium chloride 0.9 % 100 mL IVPB 500 mg, Intravenous, at 200 mL/hr, Once, On Fri04/18/25 at 0600, For 1 dose, Pharmacy: DO NOT mix until patient is called to the pre-op area. To be infused in the OR., Administer over 30 Minutes, Pre-opIndications:Pre-owen splant evaluation for chronic liver disease New Bag 04/18/2025 12:41 PM EDT 500 mg neostigmine methylsulfate (PROSTIGMIN) IV solution Intravenous, PRN - One Step Medication Only, Starting on Fri04/18/25 at 1832, Anesthesia Intra-op Given 04/18/2025 6:32 PM EDT 5 mg norepinephrine (LEVOPHED) 16 mg/250 mL (64 mcg/mL) infusion Intravenous, at 0-28.1 mL/hr, Continuous, Starting on Fri04/18/25 at 0730, For 24 hours, FOR O.R. USE ONLY. Titrate in O.R. based on MAP., Pre-op (inpatient signed and held), To be given: intra-op Rate/Dose Change 04/18/2025 5:45 PM EDT 2 mcg/min 1.875 mL/hr Rate/Dose Change 04/18/2025 5:30 PM EDT 4 mcg/min 3.75 mL /hr Rate/Dose Change 04/18/2025 4:22 PM EDT 6 mcg/min 5.625 m L/hr norepinephrine (LEVOPHED) injection Intravenous, PRN - One Step Medication Only, Starting on Fri04/18/25 at 0840, Anesthesia Intra-op Given 04/18/2025 1:26 PM EDT 16 mcg Given 04/18/2025 12:16 PM EDT 16 mcg Given 04/18/2025 11:32 AM EDT 16 mcg phenylephrine (AMADOU-SYNEPHRINE) injection Intravenous, PRN - One Step Medication Only, Starting on Fri04/18/25 at 0825, Anesthesia Intra-op Given 04/18/2025 8:35 AM EDT 100 mcg Given 04/18/2025 8:25 AM EDT 100 mcg propofol (DIPRIVAN) infusion 10 mg/mL Intravenous, Continuous - One Step Medications Only, Starting on Fri04/18/25 at 1613, Anesthesia Intra-op New Bag 04/18/2025 4:13 PM EDT 30 mcg/kg/min 12.744 mL/hr propofol 10 mg/ml (DIPRIVAN) injection Intravenous, PRN - One Step Medication Only, Starting on Fri04/18/25 at 0824, Anesthesia Intra-op Given 04/18/2025 8:26 AM EDT 50 mg Given 04/18/2025 8:24 AM EDT 150 mg sodium bicarbonate (NEUT) 4.2 % injection Soln Epidural, PRN - One Step Medication Only, Starting on Fri04/18/25 at 1346, Anesthesia Intra-op Given 04/18/2025 1:46 PM EDT 20 mEq Given 04/18/2025 1:34 PM EDT 10 mEq Given 04/18/2025 1:26 PM EDT 20 mEq sodium chloride 0.9 % IV infusion Intravenous, Continuous - One Step Medications Only, Starting on Fri04/18/25 at 0841, Anesthesia Intra-op 04/18/2025 8:41 AM EDT 50 mL/hr Transfuse Cryoprecipitate Routine New Bag 04/18/2025 4:01 PM EDT Transfuse Cryoprecipitate Routine New Bag 04/18/2025 4:07 PM EDT Transfuse Fresh Frozen Plasma Transfusion Rate: Per dept routine Routine, Check Transfusion Rate, Department Routine: , , All areas: 300mL/hr unless otherwise specified by the provider ,Indications:Pre-transplant evaluation for chronic liver disease New 04/18/2025 1:00 PM EDT Transfuse Fresh Frozen Plasma Transfusion Rate: Per dept routine Routine, Check Transfusion Rate, Department Routine: , , All areas: 300mL/hr unless otherwise specified by the provider ,Indications:Pre-transplant evaluation for chronic liver disease New 04/18/2025 1:19 PM EDT Transfuse Fresh Frozen Plasma Transfusion Rate: Per dept routine Routine, Check Transfusion Rate, Department Routine: , , All areas: 300mL/hr unless otherwise specified by the provider ,Indications:Pre-transplant evaluation for chronic liver disease 04/18/2025 1:30 PM EDT Transfuse Fresh Frozen Plasma Transfusion Rate: Per dept routine Routine, Check Transfusion Rate, Department Routine: , , All areas: 300mL/hr unless otherwise specified by the provider ,Indications:Pre-transplant evaluation for chronic liver disease New Bag 04/18/2025 2:40 PM EDT Transfuse Platelets Routine 04/18/2025 2:00 PM EDT Transfuse Platelets Routine New Bag 04/18/2025 2:37 PM EDT Transfuse RBC Transfusion Rate: Per dept routine Routine, Check Transfusion Rate, Dept routine - , , ED/ICU/step down, [facility] - 300ml/hr , Hematologic malignancy/BMT 300mL/hr , , med/surg - 100mL/hr ,Indications:Pre-transplant evaluation for chronic liver disease New 04/18/2025 12:19 PM EDT Transfuse RBC Transfusion Rate: Per dept routine Routine, Check Transfusion Rate, Dept routine - , , ED/ICU/step down, [facility] - 300ml/hr , Hematologic malignancy/BMT 300mL/hr , , med/surg - 100mL/hr ,Indications:Pre-transplant evaluation for chronic liver disease New Bag 04/18/2025 12:27 PM EDT Transfuse RBC Transfusion Rate: Per dept routine Routine, Check Transfusion Rate, Dept routine - , , ED/ICU/step down, [facility] - 300ml/hr , Hematologic malignancy/BMT 300mL/hr , , med/surg - 100mL/hr ,Indications:Pre-transplant evaluation for chronic liver disease New Bag 04/18/2025 1:19 PM EDT vancomycin (VANCOCIN) 1,500 mg in sodium chloride 0.9 % 250 mL [id number] 1,500 mg (rounded from 1,432 mg = 20 mg/kg 71.6 kg), Intravenous, Administer over 90 Minutes, Once, Begin infusion 120 minutes prior to incision Use [id number] Adapter - Mix Thoroughly Before Administration, Indication? Prophylaxis-Surgical, Site of diagnosed infections (select all that apply): Other, Other: Liver TransplantIndications:Pre-tra nsplant evaluation for chronic liver disease New Bag 04/18/2025 8:33 AM EDT 1,500 mg vasopressin (VASOSTRICT) 40 units in sodium chloride 0.9% 100 mL infusion Intravenous, at 3-9 mL/hr, Continuous, Starting on Fri04/18/25 at 0730, For 24 hours, FOR O.R. USE ONLY. Titrate in O.R. based on MAP. CENTRAL LINE PREFERRED, Pre-op (inpatient signed and held), To be given: intra-op New Bag 04/18/2025 9:37 AM EDT 0.03 Units/min 4.5 mL/hr vecuronium (NORCURON) injection Intravenous, PRN - One Step Medication Only, Starting on Fri04/18/25 at 0825, Anesthesia Intra-op Given 04/18/2025 2:42 PM EDT 1 mg Given 04/18/2025 12:55 PM EDT 5 mg Given 04/18/2025 11:34 AM EDT 5 mg documented in this encounter Additional Health Concerns Assessment Noted Time PHQ-9 Depression Total Score: 13 05/15/2 025 2:00 PM EDT documented as of this encounter Care Teams Park Interpreter Relationship Specialty Start Date End Date Yonatan Graves DO [address] [place] [address] PCP - General 02/01/25 Farida Ortega, HARLEEN [address] [place] [id number] Referring Physician Gastroenterology 09/02/23 documented as of this encounter
--- OUTSIDE RECORDS SUMMARY | 2025-04-23 04:45 | XMS_ITS | Encounter Summary ---
Author Organization [facility] Address [address] [place] [address] Care Team Providers Care Adobe Block Maker Name Role Phone Geoff Graves DO Primary Care Provider Farida Ortega [employer] Unavailable [phone] Source Comments This information has been disclosed [...] release of HIV test results or diagnoses. [id number] Health Reason for Visit * Auth/Cert (Routine) Specialty Diagnoses / Procedures Referred By Roselyn mccollum Referred To Contact Diagnoses Pre-transplant evaluation for chronic liver disease [Z01.818] Procedures LIVING DONOR TRANSPLANT RECIPIENT [facility] [address] [place] [address] Phone: tel: Referral ID Status Reason Start Date Expiration Date Visits Re quested Visits Authorized [id number] 1 1 Encounter Details Date Type Department Care Team (Late st Contact Info) Description 04/23/2025 5:45 AM EDT - 04/23/2025 6:27 AM EDT Surgery [facility] ENDOSCOPY [address] [place] [address] Kelsey Moyer MD [address] [place] [address] PUSH ENTEROSCOPY Surgery Details Date/Time Status Location OR Service Patient Class Case Class Case Type Trauma Case? 04/23/2025 5:45 AM Posted ENDOSCOPY OUT OF ENDO Gastroenterology Inpatient Endo Bedside Procedure Panel 1 Procedure LRB Anes Op Region Wound Class Comments PUSH ENTEROSCOPY N/A Sedation by Floor Staff N/A Surgeon Surgeon Role Service Panel Kelsey Moyer MD Primary Gastroenterology 1 documented in this encounter Social History Tobacco Use Types Packs/Day Years Used Date Smoking Tobacco: Former Cigarettes 0.3 1.2 0 07/22/2014 - 07/22/2015 Smokeless Tobacco: Never Alcohol Use Standard Drinks/Week Comments Not Currently 0 (1 standard drink = 0.6 oz pur e alcohol) [facility] Utilities Answer Date Recorded In the past 12 months has th e [employer], gas, oil, or water [employer] threatened to shut off services in your [...] any time in the past 12 m [facility], were you homeless or living in a assisted (including now)? No 04/19/2025 Yearly Questionnaire Answer [...] Sign Reading Time Taken Comments Blood Pressure 81/60 04/23/2025 1:22 AM EDT Pulse 116 04/23/2025 3:26 AM EDT Temperature 36.2 C (97.1 F) 04/23/2025 1:22 AM EDT Respiratory Rate 13 04/23/2025 3:26 AM EDT Oxygen Saturation 99% 04/23/2025 4:10 AM EDT Inhaled Oxygen Concentration 99% 04/23/2025 4 :10 AM EDT Weight 75.5 kg (166 lb 6.4 oz) 04/22/2025 3:53 A M EDT Height 165.1 cm (5' 5 ) 04/23/2025 3:00 AM EDT Body Mass Index 24.28 04/29/2025 5:08 AM EST documented in this encounter Functional Status * Peripheral Vascular Question Answer Date of Assessment Author Compression boots Yes 04/22/2025 8:08 PM EDT Marilee Ramsey, RN Peripheral Vascular (WDL) WDL 04/23/2025 1:15 AM EDT Cecilia Washington RN * Question Answer Date of Assessment Author Anti-Embolism Devices Bilateral;Sequenti al compression devices, below knee 04/21/2025 8:00 AM Yaima Ardon RN Anti-Embolism Intervention Declined 04/21/2025 8:00 AM Yaima Ardon RN * AUDIT-C Score Answer Date of Assessment Author 0 04/22/2025 2:18 AM Marilee Gomez RN * Question Answer Date of Assessment [...] of this encounter Discharge Summaries * ASIM Enriquez LSW - 05/03/2025 2:14 PM EST [facility] Management Discharge Summary Patient name: Mindy Wade [...] Notified at Discharge: Khloe Wade-spouse Family Contact Number:[phone] No further CM/SW needs. This plan has been reviewed with the multi-disciplinary team. Treatment Preferences Treatment Preferences: Distance Post-Discharge Goals Patient's Post-Discharge goals: Get stronger Post Acute Care Provider Information: Community Services at Discharge Community Services at Home post discharge: [facility] Name/Phone # post discharge: [facility] [phone] Home Health Services Types at Discharge: PT/OT/AQUACULTURE FARMER AJ Mata [phone] * Giovanny Louis MD - 05/03/2025 2:06 PM EST Images from the original note were not included. [facility] Inpatient Discharge Summary Patient: Mindy Wade Age: 35 y.o. CSN: [id number] Date of Admission: 04/18/2025 Date of Discharge: 05/03/2025 Attending Physician: Jose Daniel MD Primary Care Physician: GEOFF GRAVES DO Diagnoses Present on Admission Past 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: Diagnosis Date Abdominal hernia 02/21/2023 Alcoholic hepatitis (CMS-HCC) Anxiety Ascites Chronic diarrhea 08/21/2022 Cirrhosis (CMS-HCC) Cystitis Depression Hepatitis C Discharge Diagnoses There are no hospital problems to display for this patient. Operations/Procedures Performed (include dates) Surgeries: Surgical/Procedural Cases on this Admission Case IDs Date Procedure Surgeon Location Status [id number] 04/18/25 LIVING DONOR LIVER TRANSPLANT Ludin Jose MD OR Comp [id number] 04/23/25 PUSH ENTEROSCOPY Kelsey Moyer MD ENDOSCOPY Comp [id number] 04/23/25 EMERGENCYEXPLORATORY LAP, REVISION OF JJ ANASTOMSIS, [...] at 05/02/2025 9:24 AM EST US Duplex Zrb-Tun-Cwkvhuu Comp Final Result IMPRESSION: ABDOMINAL ULTRASOUND Normal [...] at 04/25/2025 11:02 AM EST US Duplex Zgv-Qve-Ekwyfpj Comp Final Result IMPRESSION: RIGHT UPPER QUADRANT [...] at 04/23/2025 2:30 PM EDT US Duplex Drn-Rds-Ycmwjsv Comp Final Result IMPRESSION: RIGHT UPPER QUADRANT [...] Duplex Upper Left Final Result US Duplex Amh-Oif-Clxnkfw Comp Final Result IMPRESSION: RIGHT UPPER QUADRANT [...] at 04/19/2025 2:31 PM EDT US Duplex Hmp-Jhi-Cqoskpd Comp Final Result IMPRESSION: RIGHT UPPER QUADRANT [...] Consulting Services (include reason) SICU PT/OT Social Work/Bin Tripper Operator GI PICC Allergies Allergies[1] Discharge Medications Medication [...] 120 capsule Refills: 5 naloxone 4 mg/actuation Breckenridge Commonly known as: NARCAN Apply 1 spray [...] Your Medications These medications were sent to [facility] [address] [place] [address] Hours: Friday - Friday: 8:00AM - 6:00PM acetaminophen 325 MG tablet aspirin 81 MG chewable tablet calcium-vitamin D 500 mg-5 mcg (200 unit) per tablet fluconazole 200 MG tablet lidocaine 5 % melatonin 3 mg Tab methocarbamoL 500 MG tablet mycophenolate 250 mg capsule naloxone 4 mg/actuation Bre[place]enridge oxyCODONE 5 MG immediate release tablet oxyCODONE [...] Discharged on a bowel regimen as needed. [facility] - PT/OT evaluated patient and recommended home with [facility]. ENDO - A1C is 4.4. Glucoses remained [...] Patient and family received post-transplant education from implementation project coordinator as well as medication teaching from [...] listed above 4. Discharge specific orders: See [facility] Note 5. Core measures followed: (if this is a core measure patient) Discharge Weight: 145 lb 14.4 oz (66.2 kg) Disposition Home with assistance Home with supervision Home with Home Health Follow-Up Appointments Future Appointments Date Time Provider Department Center 05/10/2025 8:20 AM LTRA SURGERY, [facility] LTRA HOX HOX [facility] - [address] [address] Signed: GIOVANNY LOUIS MD Transplant Surgery 05/03/2025 [...] Jose Daniel MD Transplant and Hepatobiliary Surgery [phone] (cell) documented in this encounter Discharge Instructions [...] kept under 2 gm/day. Please discuss withyour home care coordinator if you have any question about appropriate dose to take. Other Instructions: Call post-liver transplant clinic with questions [phone] or call [facility] at [phone] and ask for the liver implementation project coordinator regulatory affairs consultant if you experience any of the following: [...] 5# in 24 hours Follow-Up Appointment: Your implementation project coordinator will provide you with a calendar [...] PM EST 04/19/2025 naloxone (NARCAN) 4 mg/actuation Breckenridge Apply 1 spray in one nostril if [...] up to 7 days. 56 tablet 05/03/2025 5 oxyCODONE (ROXICODONE) 5 MG immediate release tabletIndications:Edie kog related donor renal transplant,Alcoholic cirrhosis of liver [...] tablet 2 05/03/2025 3:44 PM EST 04/19/2025 5 pregabalin (LYRICA) 100 MG capsuleIndications:L iving related [...] Immunosuppression schedule as per Education Note by implementation project coordinator earlier this admission. Reviewed discharge medications [...] in clinic? (If significant deficits, communicate with implementation project coordinator): Standard continual education Future medications to [...] capsule, Refills: 5 naloxone (NARCAN) 4 mg/actuation Bre[place]enridge Apply 1 spray in one nostril if [...] transplant; Alcoholic cirrhosis of liver with ascites ([facility]-HCC) polyethylene glycol (GLYCOLAX) 17 gram/dose powder Mix [...] MG tablet Comments: Reason for Stopping: Tresa Glatz, PharmD Solid Organ Transplant Clinical Reed Fixer Contact via [employer] Secure Chat * Shaneka Hector, PT - 05/02/2025 11:39 AM EST Physical Therapy Treatment Name: Mindy Wade : 1990 Attending Physician: Ludin Jose MD Admission Diagnosis: Liver transplant recipient (CMS-HCC) [Z94.4] S/P liver transplant (CMS-HCC) [Z94.4] End stage liver disease (CMS-HCC) [K72.10] Date: 05/02/2025 Room: [address] [place] [address] Reviewed Pertinent hospital course: Yes Hospital Course [...] of fatigue. During 125' back to room, CHANGE ADVISOR used instead of RW and pt able [...] activity from stairs w/o RW but with CHANGE ADVISOR from pt's spouse) Unable to progress further [...] Device Standing-Dynamic Assistive Device: Rolling walker (& CHANGE ADVISOR) Gait belt used: Informed patient that they [...] Long-term goal to be met by: 05/26/25 Retirement Goal : Pt will ambulate 250' independently [...] other specified sites Viral syndrome * Tresa Beltran, PharmD - 05/02/2025 11:35 AM EST Transplant [...] Tresa Beltran PharmD Solid Organ Transplant Clinical Reed Fixer Contact via [employer] Secure Chat * NANCY Randhawa - 05/02/2025 10:17 AM EST Transplant Surgery Progress Note Name: Mindy Wade CSN: [id number] Date: 05/02/2025 10:17 AM OR Date: 04/18/2025 [...] appropriate for situation. Labs: Recent Labs 04/30/25 0505 0609 05/02/25 0534 WBC 4.3 7.5 5.8 [...] PICC DISPO: 8ccp, planning for home with C tmrw if LFTs continue to downtrend NANCY [...] Jose Daniel MD Transplant and Hepatobiliary Surgery [phone] (cell) * Giovanny Louis MD - 05/01/2025 6:03 AM EST Transplant Surgery Progress Note Name: Mindy Wade CSN: [id number] Date: 05/01/2025 6:03 AM OR Date: 04/18/2025 [...] multidisciplinary team on 05/01/25. Ludin Jose MD Disc Ruler Operator of Transplant Surgery [phone] (m) * Quan Yates III, MD - [...] III, MD Transplant Surgery (cell) * Gilmer Rivera, RATING CLERK - 04/30/2025 6:54 AM EST Transplant Surgery Progress Note Name: Mindy Wade CSN: [id number] Date: 04/30/2025 6:54 AM OR Date: 04/18/2025 [...] the last 72 hours. Imaging: US Duplex Hpf-Ylc-Frozjbb Comp Result Date: 04/29/2025 EXAM: US ABDOMEN LIMITED EXAM: US DUPLEX PCD-OACKMJ-IJKTAOX COMPLETE INDICATION: Post-op liver transplant, right lobe [...] EXAM: US ABDOMEN LIMITED EXAM: US DUPLEX GUN-DOTYXP-ZMJSDFK COMPLETE INDICATION: Post-op liver transplant, right lobe [...] multidisciplinary team on 04/30/25. Ludin Jose MD Disc Ruler Operator of Transplant Surgery [phone] (m) * Manisha Barrios, OT - 04/29/2025 4:58 PM EST Occupational Therapy Treatment Name: Mindy Wade : 1990 Attending Physician: Ludin Jose MD Admission Diagnosis: Liver transplant recipient (CMS-HCC) [Z94.4] S/P liver transplant (CMS-HCC) [Z94.4] End stage liver disease (CMS-HCC) [K72.10] Date: 04/29/2025 Room: [id number] Reviewed Pertinent hospital course: Yes Hospital Course [...] for toileting (goal met and updated 04/22) Equip Tech Goal : pt will perform IADL task assessment exterminator goal to be met in: 2 weeks [...] liver disease (CMS-HCC) [K72.10] Date: 04/29/2025 Room: [address] [place] [address] Reviewed Pertinent hospital course: Yes Hospital Course [...] Long-term goal to be met by: 05/26/25 Equip Tech Goal : Pt will ambulate 250' independently [...] 10:19 AM EST TXP - Follow Up [facility] Medical Nutrition Therapy Follow-Up Diet [...] Based on DBW of 68.1 kg Kcals/day: 8216-5780 (25-30 kcals/kg) Protein g/day: 100-140 (1.5-2.0 g/kg) [...] Dietitian - Solid Organ Transplant Contact via [employer] Chat * Yolanda Vang RD - 04/29/2025 [...] to transplant RD. Please reach out (preferably [employer] Secure Chat) if there are any questions or concerns. Yolanda Vang RD, JERARDO Metabolic Support Services * Gilmer Rivera CNP - 04/29/2025 7:46 AM EST Transplant Surgery Progress Note Name: Mindy Wade CSN: [id number] Date: 04/29/2025 7:41 AM OR Date: 04/18/2025 Subjective Awake and alert. No distress. Reports that she had some right upper arm redness that went up into her neck/ jaw. [place] as though this was related to [employer]. [...] multidisciplinary team on 04/29/25. Ludin Jose MD Disc Ruler Operator of Transplant Surgery [phone] (m) * Jackie Hernandez OT - 04/28/2025 11:42 AM EST Occupational Therapy Reason Patient Not Seen Name: Mindy ROBERTS: 1990 Attending Physician: Ludin Jose MD Admission [...] agree with the following information written by thecertified occupational health rn. * Farhan Marcano, PT - 04/28/2025 11:21 AM EST Physical Therapy Reason Patient Not Seen Name: Mindy ROBERTS: 1990 Attending Physician: Ludin Jose MD Admission [...] appropriate and as schedule allows Time Attempted: 1049 * Ana Brooks, SANTOSH - 04/28/2025 9:45 AM EST Transplant Surgery Progress Note Name: Mindy Wade CSN: [id number] Date: 04/28/2025 9:45 AM OR Date: 04/18/2025 [...] multidisciplinary team on 04/28/25. Ludin Jose MD Disc Ruler Operator of Transplant Surgery [phone] (m) * Yolanda Taj, JACKSON - 04/28/2025 8:27 AM EST Pt transferred [...] neededin several days. Please reach out (preferably [employer] Secure Chat) if there are any questions or concerns. Continue to follow with you. Yolanda Vang RD, LD Metabolic Support Services * Yolanda Vang RD - 04/27/2025 12:33 PM EST Pt has been followed by transplant JACKSON Sarmiento. Consult received today for start of [...] start of TPN. Please reach out (preferably [employer] Secure Chat) if there are any questions or concerns. Continue to follow with you. Yolanda Vang RD, LD Metabolic Support Services * Gloria Chen MD - 04/27/2025 10:30 AM EST Transplant Surgery Progress Note Name: Mindy Wade CSN: [id number] Date: 04/27/2025 10:30 AM OR Date: 04/18/2025 [...] in this interval not displayed. Recent Labs 04/25/25517 INR 1.1 PROTIME 14.3 Imaging: X-ray Portable [...] on 04/27/25. Looks a lot better today. [place] trial NGT. Labs stable. Continue to walk and normalize. Dc incisional vac. 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 exterminator goal to be met in: 2 weeks [...] OT Time Start Time: 957 Stop Time: 102 Time Calculation (min): 23 min OT Charges [...] PMH : latent TB, anxiety, depression, ESLD /2 ETOH and HCV Precautions: n/a Activity Level: [...] Long-term goal to be met by: 05/26/25 Equip Tech Goal : Pt will ambulate 250' independently [...] Surgery Progress Note Name: Mindy Wade CSN: [id number] Date: 04/26/2025 9:48 AM OR Date: 04/18/2025 Subjective 1.4L NG output, mostly ice chips Continues to have residual bloody stool Objective Vitals: Temp: [97.6 ??F (36.4 ??C)-98.1 ??F (36.7 ??C)] 97.6 ??F (36.4 ??C) Heart Rate: [73-93] 90 Resp: [9-] 18 BP: (103-131)/(65-83) 119/75 Arterial Line BP: [...] EXAM: US ABDOMEN LIMITED EXAM: US DUPLEX [id number]-[id number] COMPLETE INDICATION: Liver Transplant DATE: 04/25/2025 9:37 [...] at 04/25/2025 11:02 AM EST US Duplex Uuj-Fdc-Vdnvofo Comp Result Date: 04/25/2025 EXAM: US ABDOMEN LIMITED EXAM: US DUPLEX LPU-BDWFVX-IFYTOVJ COMPLETE INDICATION: Liver Transplant DATE: 04/25/2025 9:37 [...] morning. Will get KUB. Ludin Jose MD Disc Ruler Operator of Transplant Surgery [phone] (m) * Raf Talley MD - 04/26/2025 [...] times a day. naloxone (NARCAN) 4 mg/actuation Breckenridge Apply 1 spray in one nostril if [...] Sublingual BID traZODone 50 mg Oral Nightly (2099) valGANciclovir 450 mg Per NG / OG [...] No PaO2 result within 12 hours. IBW: [place] body weight: 57 kg (125 lb 10.6 [...] baseline or with provocation, shows a very cjqwsbznxf-wj-nmzp atrial level shunt. There is a shunt [...] in sodium chloride 0.9 % 100 mL Vogt4Efl IVPB 3.375 g Every8 hours 04/25/2025 -- Admin Instructions: Use Konn7Wls Adapter - Mix Thoroughly Before Administration Route: [...] (12x doses in last 24 hours) - [facility] Exam: Intubated and sedation; unable [...] use of seat during bathing tasks - AQUACULTURE FARMER Recs: Dispo: stepdown Code Status: Full Code [...] Tresa Beltran PharmD Solid Organ Transplant Clinical Reed Fixer Contact via [employer] Secure Chat * Gloria Chen MD - 04/25/2025 11:21 AM EST Transplant Surgery Progress Note Name: Mindy Wade CSN: [id number] Date: 04/25/2025 11:21 AM OR Date: 04/18/2025 [...] EXAM: US ABDOMEN LIMITED EXAM: US DUPLEX MED-JLOWGK-XDYNSCQ COMPLETE INDICATION: Liver Transplant DATE: 04/25/2025 9:37 [...] at 04/25/2025 11:02 AM EST US Duplex Vdx-Hwm-Lycqzvl Comp Result Date: 04/25/2025 EXAM: US ABDOMEN LIMITED EXAM: US DUPLEX QKP-OMZHPQ-ILXHPPA COMPLETE INDICATION: Liver Transplant DATE: 04/25/2025 9:37 [...] due to hemodynamic instability. Ludin Jose MD Disc Ruler Operator of Transplant Surgery [phone] (m) * Raf Talley MD - 04/25/2025 [...] times a day. naloxone (NARCAN) 4 mg/actuation Breckenridge Apply 1 spray in one nostril if [...] No FiO2 recorded within 12 hours. IBW: [place] body weight: 57 kg (125 lb 10.6 [...] 0745 04/23/25 0426 04/23/25 0223 04/19/25 0633 04/19/257 HSTROP -- -- -- -- -- 15* [...] baseline or with provocation, shows a very mxqiagdyxg-qs-vovk atrial level shunt. There is a shunt [...] No active issues HEMATOLOGIC Labs: Lab 04/25/25 0504/25/25 0005 04/24/25 1840 04/24/25 1229 04/24/25 0436 [...] in sodium chloride 0.9 % 100 mL Hluu7Lpy 4.5 g Every 8 hours 04/23/2025 -- Admin Instructions: Use Fopk4Dsh Adapter - Mix Thoroughly Before Administration Route: [...] extremities prior to intubation and seadtion GCS: [place] Coma Scale Score: 15 (Eye Openin, Best Verbal Response: 5, Best Motor Response: 6) No data found. A/P: #Sedation/Analgesia - Dilaudid (11x doses in last 24 hours) - [facility] Plan for tylenol, Robaxin, PRN Dilaudid [...] use of seat during bathing tasks - AQUACULTURE FARMER Recs: Dispo: Remain in SICU Code Status: Full Code Signed: LYNN GAGE DO 04/25/2025, 8:35 AM ICU ATTENDING PROGRESS NOTE: [...] excluding time spent on procedures: 33 minutes aRf Talley MD 04/25/2025 8:32 AM [1] No Known Drug Allergies or Adverse Reactions * Elia Kim RRT - 04/24/2025 8:38 AM EST Patient extubated to 3 LPM on Date:04/24/2025 at Time: 0838. * Aixa Keith MD - 04/24/2025 6:43 AM EST Transplant Surgery Progress Note Name: Mindy Wade CSN: [id number] Date: 04/24/2025 6:43 AM OR Date: 04/18/2025 [...] appropriate for situation. Labs: Recent Labs 04/23/25 18104/24/25 0000 04/24/25 0436 WBC 9.1 10.5 9.4 [...] EXAM: US ABDOMEN LIMITED EXAM: US DUPLEX [id number] COMPLETE INDICATION: Liver Transplant COMPARISON: None TECHNIQUE: [...] at 04/23/2025 2:30 PM EDT US Duplex Epi-Nof-Poraqap Comp Result Date: 04/23/2025 EXAM: US ABDOMEN LIMITED EXAM: US DUPLEX IMO-JQUDWI-PLHBCDK COMPLETE INDICATION: Liver Transplant COMPARISON: None TECHNIQUE: [...] tablet Oral Daily 09 tacrolimus 0.5 mg Sublingual BID valGANciclovir 450 [...] 5000 units TID (HELD), SCD, PPI Dispo: HILARY KEITH MD Transplant Surgery Cosigned by Alejandra [...] MD PhD Transplant Surgery * Celio Espinosa, MARINE CONSULTANT - 04/24/2025 5:56 AM EST RESPIRATORY THERAPY [...] PCO2 40 04/24/2025 PO2ART 107 (H) 04/24/2025 NVC4CDM 23 04/24/2025 BEART -2.0 04/24/2025 VJQ4PHG 97.3 04/24/2025 F6TBLUGR 100 04/24/2025 Based on this SBT assessment [...] Admitted to SICU post op. Transferred to [facility] 2 days ago and had a [...] 61 (H) 04/23/2025 PO2ART 122 (H) 04/23/2025 QKN6GBS 19 (L) 04/23/2025 BEART -8.3 (L) 04/23/2025 XVS5FMD 96.2 04/23/2025 Q3KBUPBX 98 04/23/2025 P:F ratio = 203 Cont [...] Acute Care Surgery, and Surgical Critical Care [facility] Academic Office [phone] For Transfers, call [phone] * Sergey Altman MD - 04/23/2025 5:52 AM EDT Transplant Surgery Progress Note Name: Mindy Wade CSN: [id number] Date: 04/23/2025 7:59 AM OR Date: 04/18/2025 [...] for situation. Labs: Recent Labs 04/23/25 0003 04/23/25 0223 04/23/25 0426 WBC 7.0 7.7 11.4* HGB 5.5* 8.6* 9.9* 9.6* HCT 16.1* 24.9* 28.4* 30.0* PLT 85* 60* 56* Recent Labs 04/22/25 2304 04/23/253 04/23/25 0426 NA 133 134 137 K 4.8 4.6 [...] % 250 mL infusion 2 mcg/min (04/23/25 033) fentanyl (SUBLIMAZE) IV infusion 50 mcg/hr (04/23/25 032) propofol 20 mcg/kg/min (04/23/25316) sodium chloride 0.9 [...] bleed unable to access with endoscopy on [facility] Plan discussed in person with Alejandra Wilson [...] 4:46 AM EDT Associated attestation - Manuela Lagn MD - 04/23/2025 4:46 AM EDT See [...] and also through CO2 detection. * Maggie Jorgensenhard, OT - 04/22/2025 4:01 PM EDT Occupational Therapy Treatment Name: Mindy Wade : 1990 Attending Physician: Alejandra Wilson MD Admission Diagnosis: Liver transplant recipient (CMS-HCC) [Z94.4] S/P liver transplant (CMS-HCC) [Z94.4] Date: 04/22/2025 Room: [facility] Reviewed Pertinent hospital course: Yes Hospital [...] Good Pt ambulated to bathroom w/ staffing specialist and niece present. 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 No Pertinent Information: Pt seen for follow-up. present during visit. Continues on clears. Denies n/v. No BM since [place] captain. Mostly just thirsty. Reviewed post-txp nutrition [...] I/O: +1.9L net volume. 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 Admit Weight: 156 lb (70.8 kg) Current Weight: 166 lb 6.4 oz (75.5 kg) Pertinent Labs: Recent Labs 04/19/25 17204/20/2513204/21/25 0900 WBC 13.3* 10.9* 6.0 HGB 12.5 11.8 9.7* HCT 37.1 34.9* 28.4* PLT 77* 77* 49* Recent Labs 04/20/2513204/20/25180804/21/25 0900 NA 141 133 136 K 5.2 [...] Based on DBW of 68.1 kg Kcals/day: 1495-6119 (25-30 kcals/kg) Protein g/day: 100-140 (1.5-2.0 g/kg) [...] Dietitian - Solid Organ Transplant Contact via [employer] Chat * Tresa Beltran, PharmD - 04/21/2025 6:00 PM EDT Caprini [...] month [] 21. History of unexplained stillborn infant, recurrent spontaneous (3 or more), premature with [...] the Caprini Risk Score of 10 and [facility] transplant protocol, I recommend discharging on heparin 5,000 units subcutaneously q8h (facility) or Eliquis 2.5 mg PO BID (home) for 30 days total. Endof chemoprophylaxis: 05/18/25. Tresa Beltran PharmD Solid Organ Transplant Clinical Reed Fixer Contact via Hi-Midia Secure Chat * Mary Timmons, PT - [...] Surgery Progress Note Name: Mindy Wade CSN: [id number] Date: 04/21/2025 6:01 AM OR Date: 04/18/2025 [...] Labs: Recent Labs 04/19/25 1241 04/19/25 1727 10/29/25 0133 WBC 15.6* 13.3* 10.9* HGB 12.9 12.5 11.8 HCT 37.8 37.1 34.9* PLT 95* 77* 77* Recent Labs 04/19/25 1727 04/20/2513204/20/25 1809 NA 141 141 133 K 5.4* [...] in this interval not displayed. Recent Labs 04/19/25172604/20/2513204/20/25 1809 AST 178* 163* 162* ALT 131* 127* 137* BILITOT 2.0* 1.6* 1.6* BILIDIRECT 0.79* 0.59* 0.30 ALKPHOS 58 54 49 ALBUMIN 2.9* 2.9* 2.8* 2.8* 2.6* 2.6* Recent Labs 04/19/25 1241 04/19/25 17204/20/25132 INR 1.8* 1.9* 1.7* PROTIME 22.0* 23.0* [...] Dilaudid 0.5 breakthrough - Oxy 5-10 - [facility] Psych: -Home meds: n/a PPX: CARIE 5000 units TID, SCD, PPI Dispo: Floor GIOVANNY LOUIS MD Transplant Surgery [facility] Surgery Resident Cosigned by Alejandra Wilson [...] around the patient's cristian and health concerns. Sheriffs Detective can be paged at [phone] if needs arise or would like follow-up, or patient/family requests a visit. Chaplains are available and can be paged 24 hours a day. Chaplain John Rose Th.D., M.Div., M.R.E., [facility]. * Giovanny Louis MD - 04/20/2025 12:42 PM EDT Transplant Surgery Progress Note Name: Mindy MICHAELSN: [id number] CSN: [id number] Date: 04/20/2025 6:05 AM OR Date: 04/18/2025 [...] not displayed. Recent Labs 04/19/25 1241 04/19/25 1727 04/20/25 0133 AST 185* 178* 163* ALT 142* 131* 127* BILITOT 2.1* 2.0* 1.6* BILIDIRECT 0.81* 0.79* 0.59* ALKPHOS 57 58 54 ALBUMIN 2.9* 2.9* 2.9* 2.9* 2.8* 2.8* Recent Labs 04/19/25 1241 04/19/25 1727 04/20/25 0133 INR 1.8* 1.9* 1.7* PROTIME 22.0* 23.0* 21.0* Imaging: US Abdomen Limited Result Date: 04/19/2025 EXAM: US ABDOMEN LIMITED EXAM: US DUPLEX [id number] COMPLETE INDICATION: Other - Must specify in [...] at 04/19/2025 2:31 PM EDT US Duplex Wqz-Daq-Gkxgdbp Comp Result Date: 04/19/2025 EXAM: US ABDOMEN LIMITED EXAM: US DUPLEX [id number] COMPLETE INDICATION: Other - Must specify in [...] water, HYDROmorphone OR HYDROmorphone, ondansetron, phenoL Assessment/Plan Mnidy Wade is a 35 y.o. 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) Leisure: Hobbies-yes (Comment) Leisure Activities: cooking Pain [...] mobility w/ CGA in prep for toileting Equip Tech Goal : pt will perform IADL task assessment exterminator goal to be met in: 2 weeks [...] EDT Physical Therapy Initial Assessment Name: Mindy Coeyle : 1990 Attending Physician: Ludin Jose MD Admission Diagnosis: Liver transplant recipient (CMS-HCC) [Z94.4] Date: 04/20/2025 Room: [place] [address] Reviewed Pertinent hospital course: Yes Hospital Course [...] Independent IADL Assistance: Independent 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 from EOB with CHANGE ADVISOR, and from commode with RW) Stand to Sit: Contact guard assistance;cues for hand placement Bed to Chair: Minimal assistance;Contact guard assistance (Ziyad with CHANGE ADVISOR bed>commode; CGA with RW commode >chair) Unable [...] Long-term goal to be met by: 05/04/25 Retirement Goal : Pt will ambulate 250' independently [...] medication evaluation was conducted through the [facility] electronic medical record review on interprofessional rounds [...] Team. Tresa Diaz, PharmD PGY2 Critical Care Integration Solution Architect Preferred contact: Hi-[employer]ia Secure Chat Weekend/On-call pager: [phone] 04/19/2025 12:38 PM Patient Characteristics: Patient Height, [...] (L) 04/19/2025 Lab Results Component Value Date PCQH35Z 27.1 (L) 04/11/2025 Current Medications Current Facility-Administered Medications Medication Dose Frequency Provider Last Admin acetaminophen 15 mg/kg Q8H Judith Murcia MD Stopped at 04/19/25 0839 AMPicillin IVPB 1 g Q6H Jostin Hess MD Stopped at 04/19/25 0854 aspirin 81 mg Daily with breakfast Jostin Hess MD 81 mg at 04/19/25 0825 [Held by provider] carvediloL 3.125 mg Nightly (2099) Jostin Hess MD dextrose 10% in water [...] 04/19/25 1100 tacrolimus 1 mg BID Yane Wheatley CNP 1 mg at 04/19/25 0830 Recent Serum [...] 04/20/2025 2:12 PM EDT Pham Gallo PharmD, [facility] Critical Care Clinical Reed Fixer Preferred Contact: Voice2Insightaging Office: [phone] Pager: [phone] 04/20/25 2:12 PM * Shannan Kumar PharmD - 04/19/2025 10:52 AM EDT Transplant Pharmacy Note Transplant pharmacy is following Mindy aWde during hospital admission. Patient medical record and [...] POD #> 180: 3-8 ng/mL Shannan Kumar Pharm.D. Solid Organ Transplant Clinical Specialist Contact via Revokom Preferred * Judith Murcia MD - 04/19/2025 [...] data found. 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 0 0 [...] in sodium chloride 0.9 % 250 mL Umso9Fue) 298.3 298.3 Volume (mL) (ciprofloxacin (CIPRO) 400 mg in dextrose 5% 200 mL IVPB) 200 200 400 Volume (mL) (albumin human bottle 5%) 1500 1500 Volume (mL) (AMPicillin 1 g in sodium chloride 0.9% 100 mL IVPB (Nomv8Jhm)) 100 100 200 Volume (mL) (mycophenolate (CELLCEPT) 500 mg in dextrose 5% in water (D5W) 50 mL IVPB) 19.2 30.8 50 Shift Total(mL/kg) 7848.3(110.9) 4567.9(64.6) 906.2(12.8) 59755.4(188.3) OUTPUT Urine(mL/kg/hr) 500(0.9) 550(1) 147(0.3) 1197(0.7) 40 [...] 04/19/2025 0800 Gross per 24 hour Intake 94482.1 ml Output 9687 ml Net 3137.1 ml [...] 0217 04/19/25 0023 04/18/25 2319 04/18/25 2212 04/18/259 10/27/211004/18/25200404/18/25 18504/18/25 1700 04/18/25 1600 04/18/25 1506 04/18/25 1410 [...] - TITRATABLE NURSING PROTOCOL (HYPERGLYCEMIA) 0-28 Units/hr Bhcbgfbxqx18/27/2025 04/19/2025 Admin Instructions: FOR O.R. USE only. Titrate in O.R. for blood glucose management HIGH ALERT MEDICATION Route: Intravenous A/P: #Hyperglycemia - no hx of DM - Insulin gtt at 2u/hr - DC and start HDSSI INFECTIOUS DISEASE Tmax: Temp (24hrs), Av.3 ??F (36.8 ??C), Min:98.1 ??F (36.7 ??C), Max:98.4 ??F (36.9 ??C) WBC Trend: Lab 04/19/2533 04/18/25231804/18/25 18504/18/25 1352 04/18/25 0603 WBC 13.7* 7.8 8.7 7.2 3.7* Current Abx: Current Anti-Infectives Dose Frequency Start End AMPicillin 1 g in sodium chloride 0.9% 100 mL IVPB (Rrjt3Nie) 1 g Every 6 hours 04/18/2025 04/20/2025 Admin Instructions: Dosage may need to be adjusted for renal dysfunction. Full dose is 1g IV q6h Use Khma1Xsq Adapter - Mix Thoroughly Before Administration Notes to Pharmacy: On small order cutter estimated creatinine clearance is 100.6 mL/min (based [...] in sodium chloride 0.9 % 250 mL Firt0Nst (Completed) 20 mg/kg ?? 71.6 kg Once 04/18/2025 04/18/2025 Admin Instructions: Begin infusion 120 minutes prior to incision Use Zmfh5Owd Adapter - Mix Thoroughly Before Administration Route: Intravenous Linked Group 2: Placed in And Linked Group A/P: #Antibiotics - Perioperative Abx: vanc, ampicillin, ceftriaxone, cipro #Immunosuppression Steroid taper Per TXP team NEUROLOGIC Exam: No focal signs, moving all four extremities GCS: Lookout Coma Scale Score: 11 (Eye Openin, Best [...] - PT Recs: - OT Recs: - AQUACULTURE FARMER Recs: Dispo: Remain in SICU Code Status: [...] PCO2 38 04/18/2025 PO2ART 136 (H) 04/18/2025 GFZ5HEW 23 04/18/2025 BEART -2.3 (L) 04/18/2025 ATO5UEA 96.6 04/18/2025 E3TBBGLJ 100 04/18/2025 P:F ratio = 340 CARDIOVASCULAR: [...] Acute Care Surgery, and Surgical Critical Care [facility] Academic Office [phone] For Transfers, call [phone] * Giovanny Louis MD - 04/19/2025 6:08 AM EDT Transplant Surgery Progress Note Name: Mindy Wade CSN: [id number] Date: 04/19/2025 6:09 AM OR Date: 04/18/2025 [...] [40 %-100 %] 40 % I/O: Date 04/18/25 07 - 04/19/25 0659 04/19/25 07 - 04/20/25 0659 Shift 6196-5205 2690-7661 7728-4678 24 Hour Total 0330-7924 1995-3496 2635-7671 24 Hour Total INTAKE P.O. 0 0 [...] in sodium chloride 0.9 % 250 mL Nuaw1Yhv) 298.3 298.3 Volume (mL) (ciprofloxacin (CIPRO) 400 mg in dextrose 5% 200 mL IVPB) 200 200 400 Volume (mL) (albumin human bottle 5%) 1500 1500 Volume (mL) (AMPicillin 1 g in sodium chloride 0.9% 100 mL IVPB (Pfbj9Srs)) 100 100 200 Volume (mL) (mycophenolate (CELLCEPT) 500 mg in dextrose 5% in water (D5W) 50 mL IVPB) 19.2 30.8 50 Shift Total(mL/kg) 7848.3(110.9) 4567.9(64.6) 751.8(10.6) 99370(186.1) OUTPUT Urine(mL/kg/hr) 500(0.9) 550(1) 117 1167 Urine [...] Labs 04/18/25 1352 04/18/25 1410 04/18/25 1700 10185804/18/252318 WBC 7.2 -- -- 8.7 7.8 HGB 10.2* < > 9.6* 12.3 12.9 HCT 29.6* < > 28.0* 35.8 37.1 PLT 80* -- -- 84* 69* < > = values in this interval not displayed. Recent Labs 04/18/25185804/18/25221104/18/252318 NA 139 139 139 K 3.6 3.6 [...] not displayed. Recent Labs 04/18/25 0603 04/18/25 18504/18/25221104/18/252318 AST [...] Dispo: SICU GIOVANNY LOUIS MD Transplant Surgery [facility] Surgery Resident Cosigned by Alejandra Wilson [...] Ventura MD - 04/23/2025 5:23 AM EDT [facility] PRE-SEDATION ASSESSMENT, HISTORY & PHYSICAL Date: [...] times a day. naloxone (NARCAN) 4 mg/actuation [place]ridge Apply 1 spray in one nostril if [...] EDT Proceed with LDLT. Ludin Jose MD Disc Ruler Operator of Transplant Surgery [phone] (m) documented in this encounter Procedure Notes * Alejandra Wilson MD - 04/23/2025 12:32 PM EDT Patient Name: Mindy Wade Date: 1990 Billing #: [id number] Date of Procedure: 04/23/2025 Diagnosis: GI bleed Procedure: 1. Reopening of recent laparotomy 2. Revision of jejunojejunostomy 3. Gastric lavage Attending surgeons: Surgeons and Role: * Alejandra Wilson MD - Primary * Quan Yates III, MD Shaker Washer Surgeon(s): Jennifer Hess MD Findings: Normal liver [...] of available help, Dr. Yates served as horticultural nursery assistant. Procedure: The patient brought to the operating room table intubated from the ICU. The abdomen and chest was prepped and draped in sterile fashion. Timeout was performed and perioperative antibiotics was confirmed as being given. We removed the previous fascial and skin closure and placed our Siani retractors. There was no significant hematoma or [...] Quan Rodriguez III, MD Anesthesia: General Staff: Hospital Orderly: Viktor Kennedy RN; Mikaela Delgado RN Scrub Person: Jaydon Soto RN Fellow: Jostin Hess MD Estimated Blood Loss: Minimal Specimens: Drains: Drain sub hepatic #1 Abdomen Right;Superior (Active) Site Description Healing 04/23/250 Drain Type Bulb 04/23/250 Drain Status Bulb suction 04/23/2549 Dressing Status Intact 04/23/2549 Output (mL) 100 mL 04/23/255 Drainage Appearance Serosanguineous 04/23/2549 Number of days: [...] Placement Verification Yes 04/20/25799 Site Assessment Clean;Dry;Intact 04/20/25799 Status Suction-low intermittent 04/20/25799 Drainage Appearance Green;Clear 04/20/25799 Drainage Output (mL) 400 mL 04/20/25599 Flushes (mL) 30 mL 04/19/251999 Number of days: 2 [REMOVED] IUC (Ybarra) Non-latex;Straight-tip 16 Fr. (Removed) Status [place] Drainage 04/19/25799 Collection Container Standard drainage bag 04/19/25799 Securement Method StatLock 04/19/25799 Indication for IUC continuation Require accurate, continuous UOP measuring in critically ill 04/19/25799 Output (mL) 40 mL 04/19/25 1400 Number [...] Moyer MD - 04/23/2025 6:01 AM EDT [id number] Procedure Date: 04/23/2025 6:01 AM Patient Name: Mindy Wade Date of : 1990 Admit Type: Inpatient Age: 35 Gender: Female Note Status: Finalized Attending MD: Kelsey Moyer , , [id number] Procedure: Small bowel enteroscopy Indications: Melena Patient [...] by the physician, the nurse and the coroner forensic technician in the procedure room. Mental Status [...] the bleed. Procedure Code(s): --- Professional --- 47337, GC, Small intestinal endoscopy, enteroscopy beyond second portion of duodenum, not including ileum; diagnostic, including collection of specimen(s) by brushing or washing, when performed (separate procedure) Diagnosis Code(s): --- Professional --- K92.2, Gastrointestinal hemorrhage, unspecified K92.1, Melena (includes Hematochezia) CPT copyright 2022 [employer] [place] [employer]. All rights reserved. The codes documented in this report are preliminary and upon food and beverage assistant review may be revised to meet current compliance requirements. Attending Participation: I was present and participated during the entire procedure from insertion to removal of the endoscope. Kelsey Moyer Kelsey Moyer, 04/23/2025 11:32:48 AM Mike Ventura Mike Ventura, 04/23/2025 7:30:40 AM Total Procedure Duration Time 0 hours 51 minutes 31 seconds Scope In: 6:09:10 AM Scope Out: 7:00:[address] [place] [address], [facility] * Drea Campbell MD - 04/23/2025 4:52 AM EDTAssociated Order(s): Insert Arterial Line Insert Arterial Line Date/Time: 04/23/2025 4:53 AM Performed by: Drea Campbell MD Authorized by: Manuela Lang MD Consent: Consent obtained: Emergent situation Holloway protocol: Patient identity confirmed: Hospital-assigned identification number [...] Acute Care Surgery, and Surgical Critical Care [facility] Academic Office [phone] * Manuela Lang MD - 04/23/2025 4:00 [...] Alternatives discussed: No treatment and delayed treatment Holloway protocol: Patient identity confirmed: Hospital-assigned identification number [...] Acute Care Surgery, and Surgical Critical Care [facility] Academic Office [phone] * Chava Mcgraw RN - 04/21/2025 8:37 [...] Mcgraw RN Authorized by: Ludin Jose MD Holloway Protocol: Verbal consent obtained?: Yes Written consent [...] time out verifies correct patient, procedure, equipment, legal support assistant and site/side marked as required: [...] Name: Mindy Wade Date: 1990 Billing #: [id number] Date of Procedure: 04/18/2025 Diagnosis: Chronic Hepatic Failure without coma Procedure: 1. Back bench preparation right lobe living donor liver 2. Back bench venous extension of right hepatic vein with iliac vein graft 3. Back bench venous anastomosis (V8 to iliac vein graft) Attending surgeons: Quan Yates III, MD - Primary Shaker Washer Surgeon(s): Shannon Johns MD - Assisting Findings: [...] reconstruction of V8 and RHV) Vein Conduit: [id number] - ABO O Anesthesia: GETA Blood/Fluid Products: [...] donor was ABO O and UNOS ID [id number]. The donor is a is a 53 [...] to implantation in the recipient. A third alliance party iliac vein graft from donor with UNOS ID [id number] and ABO was utilized as well. Prior [...] qualified and available helped Dr. Johns as preschool teacher's assistant surgeons in this case. Procedure: Back [...] this came from donor with UNOS ID [id number] that was ABO O. Next a slit was made on the orifice of the V8 branch on the cut surface of the liver. An end to side anastomosis was sewn with a 6-0 prolene suture between the V8 and external iliac vein of the iliac veingraft from the same donor was performed. We made sure the alignment was perfect. The hepatic arterywas freshened up and dissected back slightly. The portal vein was dissected and lengthened. The bile duct was inspected. There were 2 bile ducts, 1 hepatic artery and 1 portal vein. The liver was then re-immersed in 4 degrees HTK solution and prepared for implantation. * Ludin Jose MD - 04/18/2025 5:00 PM EDT [facility] OPERATIVE REPORT Patient Name: Mindy Wade Date: 1990 Billing #: [id number] Date of Procedure: 04/18/2025 Diagnosis: Chronic Hepatic Failure without coma Procedure: 1. Right lobe living donor liver transplant with edna en y hepaticojejunostomy. Attending surgeons: Surgeons and Role: * Ludin Jose MD - Primary * Quan Yates III, MD - Assisting * Shannon Johns MD - Assisting * Jose Daniel MD - Resident - Assisting * Alejandra Wilson MD - Resident - Observing Shaker Washer Surgeon(s): Jennifer Hess - Fellow Findings: Right [...] donor was ABO O and UNOS ID [id number]. The cadaveric vessels came from UNOS ID [id number] who was also ABO O. The donor [...] compatibles blood types, prior [facility]. Patient was induced with Solu-Medrol. Dr. Hung did the living donor hepatecomy. Due to the nature of the liver transplant and lack of other qualified and available helped Dr. Yates served as preschool teacher's assistant surgeon in this case. Procedure: Back [...] Alex Chang, MD Anesthesia: General Endotracheal Staff: Hospital Orderly: Aurelio Abarca RN; Mary Fink RN; Piero Sharpe RN; Victor Manuel Kevin RN Relief Scrub: Maynor [...] of days: 0 Transplant-Specific Information UNOS ID: [id number] Cross-clamp: 1202 Out of ice: 1303 Reperfusion: [...] times a day. naloxone (NARCAN) 4 mg/actuation [place]ridge Apply 1 spray in one nostril if [...] 8 cm H20 0 cm H2O 04/24/25 050 Spont PS/PEEP -- -- 499 mL -- 9.6 cm H2O 8 cm H20 10 cm H2O 04/24/25 050 VC-SIMV/PRVC 14 410 mL 362 mL 0.9 [...] 98 99 - P:F Ratio: 268 IBW: Onaway body weight: 57 kg (125 lb 10.6 [...] 0745 04/23/25 0426 04/23/25 0223 04/19/25 0633 04/19/257 HSTROP -- -- -- -- -- 15* [...] baseline or with provocation, shows a very xepvfiurou-vy-sehf atrial level shunt. There is a shunt [...] until POD4 - protonix IV BID - CRYSTLA drains - Hilar drain 325 - subhepatic [...] Labs: Lab 04/24/25 0436 04/24/25 0000 04/23/25 18104/23/25 1146 04/23/25 1130 CO2 26 26 24 24 26 BUN 38* 37* 35* 31* 30* CREATININE 1.25 1.25 1.11 0.95 0.99 EGFR 58 58 66 80 76 Lab 04/24/25 0543 04/24/25 0000 04/23/25 18104/23/25 1344 04/23/25 1146 PH ARTERIAL 7.37 7.34* [...] in sodium chloride 0.9 % 100 mL Efxg5Dgy (Completed) 4.5 g Once 04/23/2025 04/23/2025 Admin Instructions: Use Putz9Ija Adapter - Mix Thoroughly Before Administration Route: Intravenous Linked Group 1: Placed in Followed by Linked Group piperacillin-tazobactam (ZOSYN) 4.5 g in sodium chloride 0.9 % 100 mL Ogzp8Qyq 4.5 g Every 8 hours 04/23/2025 -- Admin Instructions: Use Azdt7Xwg Adapter - Mix Thoroughly Before Administration Route: [...] extremities prior to intubation and seadtion GCS: Lookout Coma Scale Score: 15 (Eye Openin, Best [...] use of seat during bathing tasks - AQUACULTURE FARMER Recs: Dispo: Remain in SICU Code Status: [...] Admitted to SICU post op. Transferred to [facility] 2 days ago and had a [...] PCO2 40 04/24/2025 PO2ART 107 (H) 04/24/2025 QST0RTH 23 04/24/2025 BEART -2.0 04/24/2025 CKL4YSC 97.3 04/24/2025 C7JXIXTF 100 04/24/2025 P:F ratio = 268 Passed [...] Acute Care Surgery, and Surgical Critical Care [facility] Academic Office [phone] For Transfers, call [phone] * Mike Ventura MD - 04/23/2025 4:29 AM EDTAssociated Order(s): IP CONSULT TO GASTROENTEROLOGY [facility] GI CONSULT NOTE Consulted by: Alejandra Wilson [...] times a day. naloxone (NARCAN) 4 mg/actuation [place] Apply 1 spray in one nostril if [...] LIVER TRANSPLANT; Surgeon: Ludin Jose MD; Location: [facility]; Service: Transplant; Laterality: N/A; UPPER GASTROINTESTINAL ENDOSCOPY [...] times a day. naloxone (NARCAN) 4 mg/actuation [place] Apply 1 spray in one nostril if [...] TV Inspiratory Time Set PIP Observed PEEP/CPAP 04/23/25 0410 -- 16 450 mL 0 mL 1 sec 36 cm H2O 10 cm H20 04/23/25 0326 VC-AC/PRVC 16 450 mL 0 mL 1 sec 37 cm H2O 10 cm H20 Other O2 Device: Patient Vitals for the past 5 hrs: O2 Device FiO2 O2 Flow Rate (L/min) 04/23/25 0410 -- 60 % -- 04/23/25 0326 ETT;Vent 100 % -- 04/23/25 0122 Nasal Cannula -- 4 L/min 04/23/25 0020 None (Room air) -- 0 L/min Total RSBI: 11 (04/18/252245) Blood Gas: Lab 04/23/2542504/18/25224504/18/25 1859 PH ARTERIAL 7.14* 7.38 7.40 PCO2 ARTERIAL 61* 38 33* PO2 ARTERIAL 122* 136* 158* HCO3 ARTERIAL 19* 23 22 BASE EXCESS ARTERIAL -8.3* -2.3* -3.6* % HBO2 96.2 96.6 95.1 O2 SATURATION ARTERIAL 98 100 100 - P:F Ratio: 203 IBW: Onaway body weight: 57 kg (125 lb 10.6 [...] Hemodynamics: No data found. Cardiac Labs: Lab 11/01/25 0426 1122204/22/25230304/19/25 0837 04/19/25 0633 04/19/25 0227 HSTROP -- [...] baseline or with provocation, shows a very ljgwtpkjvx-ob-dtkx atrial level shunt. There is a shunt [...] 175 275 90 60 GI Labs: Lab 04/23/2522204/22/25 2304 04/22/25 0606 04/21/25 0900 04/20/25 1809 [...] FLUIDS / ELECTROLYTES / RENAL Labs: Lab 04/23/25 0223 04/22/25 2304 04/22/25 0606 04/21/25 0900 04/20/25 1809 SODIUM 134 133 137 136 133 [...] 0320) propofol, Last Rate: 20 mcg/kg/min (04/23/25 031) sodium chloride 0.9 % sodium chloride 0.9 % sodium chloride 0.9 % sodium chloride 0.9 % sodium chloride 0.9 % Labs: Lab 04/23/253 04/22/25 2304 04/22/25 0606 04/21/25 0900 04/20/25 [...] UOP 0.5 mL/kg/hr - Strict I/Os - ybarra #Electrolytes - ICU Electrolyte Replacement Protocol - Daily Renal/Mg SKIN / MUSCULOSKELETAL Exam: Normal ROM, no rashes A/P: - No active issues HEMATOLOGIC Labs: Lab 04/23/25 0426 04/23/253 04/23/25 0003 04/22/25 2304 04/22/25 0606 WBC [...] extremities prior to intubation and seadtion GCS: Lookout Coma Scale Score: 15 (Eye Openin, Best Verbal Response: 5, Best Motor Response: 6) No data found. A/P: #Sedation/Analgesia - Propofol gtt - [facility] Exam: Intubated and sedation; unable [...] use of seat during bathing tasks - AQUACULTURE FARMER Recs: Dispo: Remain in SICU Code Status: [...] PCO2 38 04/18/2025 PO2ART 136 (H) 04/18/2025 AWZ0PJM 23 04/18/2025 BEART -2.3 (L) 04/18/2025 YMF6IOU 96.6 04/18/2025 K6VGXZTJ 100 04/18/2025 P:F ratio = No PaO2 [...] Acute Care Surgery, and Surgical Critical Care [facility] Academic Office [phone] For Transfers, call [phone] * Chava Mcgraw RN - 04/21/2025 8:38 AM EDTAssociated Order(s): IP CONSULT TO PICC TEAM Images from the original note were not included. ALEJANDRO PICC placed in right brachial vein. Verified with ECG and approved for immediate use Length: 35CM/0 * ASIM Enriquez, SECTIONAL BELT MOLD ASSEMBLER - 04/19/2025 8:31 AM EDT HEALTH Care Management/Social Work Assessment Patient Information Patient Name: Mindy Wade Hospital Day: 1 Inpatient/Observation: Inpatient Admit Date: 04/18/2025 Admission Diagnosis: Liver transplant recipient (CMS-HCC) [Z94.4] Attending provider: Ludin Jose MD PCP: GEOFF GRAVES, Home Pharmacy: [facility] [address] [facility] [address] [id number] [place] [address] [facility] [address] [facility] [address] [facility] [address] [place] [address] [facility] - [place], [place] - [address] [place] [address] Pertinent Medications Anticoagulation therapy: No New Diabetic: [...] Substance Abuse Date: 07/24/23 Treatment History: Outpatient [facility] Do you need Substance Abuse Treatment Resources?: No Substance Abuse Treatment Resources Provided: none Social Work Consult for Substance Abuse Ordered?: No Suicide Attempts: No Activities of Daily Living: Independent Work History: Disabled Marital Status: Number of children and their names: Jordon-Caitlin Mcpherson Kamdyn Relative Search Completed: No Demographics Correct:: [...] Status: Number of children and their names: 3-Caitlin Mcpherson Kamdyn Relative Search Completed: No Demographics Correct:: Yes Expected Discharge Disposition: Home with Home Care Next of Kin: Khloe Wade Next of Kin Relationship: Spouse Next of Kin Assessment Information Obtained From:: Patient, Chart Review Other Pertinent Information SW consult request reviewed and completed. SWCM Pham Chung verified demographic and emergency contact information. SWCM verified patients LNOKand HCPOA and assessment was completed by chart review. SWCM will provide active listening and willwork with [...] Patient reported that she is not a Santa. Patient reported she is receiving snf disability. Patient does not report financial concerns/difficulties [...] since July 2023. Patient has been to [facility] for substance use treatment. Patient does not use home oxygen, DME use, or dialysis. Patient has no history of detention facility or inpatient rehabilitation facility admissions. Patient has no history of home health care services. PCP: Geoff Graves SWCM confirmed with patient/family that there are no additional SWCM needs at this time. SW provided the family with SW contact [phone]. Patient/Family aware and taking part in the [...] are disclosed as appropriate. ASIM ENRIQUEZ, AJ [phone] * Geoff Tania Sarmiento, RD - 04/19/2025 7:35 AM EDTAssociated Order(s): IP CONSULT TO NUTRITION SERVICES TXP - Initial [facility] Medical Nutrition Therapy Reason(s) for [...] I/O: +3.6L net volume. 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 Admit Weight: 156 lb (70.8 kg) [...] in this interval not displayed. Recent Labs 04/18/25185804/18/25221104/18/252318 NA 139 139 139 K 3.6 3.6 [...] (CMS-HCC) Anxiety Ascites Chronic diarrhea 08/21/2022 Cirrhosis ([facility]-HCC) Cystitis Depression Hepatitis C Past Surgical [...] Based on DBW of 68.1 kg Kcals/day: 2024-3307 (25-30 kcals/kg) Protein g/day: 100-140 (1.5-2.0 g/kg) [...] diet as medically able ONS w/ meals cJ Sarmiento RD, LD Clinical Dietitian - Solid Organ Transplant Contact via Hi-Midia Chat * Judith Murcia MD - 04/18/2025 11:05 PM EDTAssociated Order(s): IP CONSULT TO SURGICAL CRITICAL CARE Surgical ICU Consult Note / Progress Note Patient: Mindy Wdae Date/Time: 04/18/2025 11:05 PM HPI: Mindy Wade [...] BP Temp Temp src Pulse Resp SpO2 04/18/252251 107/69 -- -- 79 12 100 % 04/18/252245 -- -- -- -- -- 98 % 04/18/252199 104/66 -- -- 81 10 98 % 04/18/252099 109/62 -- -- 80 9 99 % [...] 100 100 - P:F Ratio: 340 IBW: Onaway body weight: 57 kg (125 lb 10.6 [...] Hemodynamics: No data found. Cardiac Labs: Lab 04/18/25212704/18/25 1859 04/18/25 1700 04/18/25 1600 04/18/25 1506 [...] (mL) 04/16/25 0701 - 04/16/25 1900 04/16/25 1901 - 04/17/25 0700 04/17/25 0701 - 04/17/25 1900 04/17/25 1901 - 04/18/25 0700 04/18/25 0701 - 04/18/25 1900 04/18/25 1901 - 04/18/25 2305 Drain sub hepatic #1 [...] Regimen - Last BM: 0 @04/18/2025 1826 (PARKS AND RECREATION WORKER) Held until taking PO - Miralax BID - Senna-S BID - Dulcolax HI PRN #Nausea - Zofran PRN #GI Prophylaxis [...] (70.8 kg) Intake/Output: Date 04/17/252299 - 04/18/25 0659(Not Admitted) 04/18/25 0700 - 04/19/25 0659 Shift 1051-9680 24 Hour Total 7326-4908 9334-1953 0280-6671 24 Hour Total INTAKE P.O. 0 0 [...] in sodium chloride 0.9 % 250 mL Cogj8Suv) 298.3 298.3 Volume (mL) (ciprofloxacin (CIPRO) 400 mg in dextrose 5% 200 mL IVPB) 200 200 400 Volume (mL) (albumin human bottle 5%) 1500 1500 Volume (mL) (AMPicillin 1 g in sodium chloride 0.9% 100 mL IVPB (Ktzl7Qpo)) 100 100 Volume (mL) (mycophenolate (CELLCEPT) 500 mg in dextrose 5% in water (D5W) 50 mL IVPB) 19.2 19.2 Shift Total(mL/kg) 7848.3(110.9) 4567.9(64.6) 57844.3(175.5) OUTPUT Urine(mL/kg/hr) 500(0.9) 550(1) 1050 Urine 500 [...] at 04/18/20252199 Gross per 24 hour Intake 87284.27 ml Output 9175 ml Net 3241.27 ml [...] q6 renal, Mg RENAL Labs: Lab 04/18/25 22104/18/25185804/18/25 0603 CO2 22 20* 26 BUN 14 [...] in this interval not displayed. Lab 04/18/25 1859 04/18/25 1352 04/18/25 0603 INR 1.8* 1.9* 1.1 Lab 04/18/25 1859 04/18/25 1352 04/18/25 0603 [...] - TITRATABLE NURSING PROTOCOL (HYPERGLYCEMIA) 0-28 Units/hr Uhdulaspto24/27/2025 04/19/2025 Admin Instructions: FOR O.R. USE only. [...] in sodium chloride 0.9% 100 mL IVPB (Kcpq5Jdy) 1 g Every 6 hours 04/18/2025 04/20/2025 Admin Instructions: Dosage may need to be adjusted for renal dysfunction. Full dose is 1g IV q6h Use Igme8Civ Adapter - Mix Thoroughly Before Administration Notes to Pharmacy: On small order cutter estimated creatinine clearance is 100.6 mL/min (based [...] in sodium chloride 0.9 % 250 mL Xfcr9Gzx (Completed) 20 mg/kg ?? 71.6 kg Once 04/18/2025 04/18/2025 Admin Instructions: Begin infusion 120 minutes prior to incision Use Paro4Krx Adapter - Mix Thoroughly Before Administration Route: [...] - PT Recs: - OT Recs: - AQUACULTURE FARMER Recs: Dispo: Remain in SICU Code Status: [...] 33 (L) 04/18/2025 PO2ART 158 (H) 04/18/2025 OTN2[facility] 22 04/18/2025 BEART -3.6 (L) 04/18/2025 KAH7NHZ 95.1 04/18/2025 K5YKBQLU 100 04/18/2025 P:F ratio = 316 CARDIOVASCULAR: [...] Acute Care Surgery, and Surgical Critical Care [facility] Academic Office [phone] For Transfers, call [phone] documented in this encounter Nursing Notes * [...] 04/27/2025 10:39 PM EST Patient transferred to 8011 on 8CCP per order. Patient transported with CMU cardiac monitoring, TPN, and antibiotic infusing. Report given to receiving RN Alecia. Dose of IV Cellcept for 2300 given toreceiving RN. Patient transferred with all belongings. * Yaima [...] via bed. All questions answered. Notified pt's photoresist contact printer of transfer. Yaima Cohen RN [...] with lock intact, to Alma the OR Child Support Case Officer at 21:30. documented in this encounter Miscellaneous Notes * Home Health Care Note - Giovanny Louis MD - 05/03/2025 2:05 PM EST Images from the original note were not included. REFERRAL FOR HOME HEALTH SERVICES FORM Patient name: Mindy Wade Patient : 1990 Age: 35 y.o. Gender: female SSN: [id number] [address]: [address] [place], [place] [address] [address] Phone number: [phone] Patient emergency contact: Extended Emergency Contact Information Primary Emergency Contact: KHLOE WADE Mobile Relation: Spouse Date of admission: 04/18/2025 Date of discharge: 05/03/2025 Attending provider: Jose Daniel MD Primary care physician: EGOFF GRAVES DO Code status: Full Code Allergies: Allergies[1] Insurance Information Insurance Information AETNA MANAGED MEDICARE/AETNA MEDICARE Phone: -- Subscriber: Mindy Wade Subscriber#: [id number] Group#: [id number] Precert#: [id number] Authorization#: [id number] Effective Date: -- Diagnoses Present on Admission [...] high protein supplement Regular Diet Services Required Mcfp: vital signs, med management, lab draws Physical [...] 120 capsule Refills: 5 naloxone 4 mg/actuation [place] Commonly known as: NARCAN Apply 1 spray [...] Your Medications These medications were sent to [facility] [address] Hours: Friday - Friday: 8:00AM - 6:00PM acetaminophen 325 MG tablet aspirin 81 MG chewable tablet calcium-vitamin D 500 mg-5 mcg (200 unit) per tablet fluconazole 200 MG tablet lidocaine 5 % melatonin 3 mg Tab methocarbamoL 500 MG tablet mycophenolate 250 mg capsule naloxone 4 mg/actuation [place] oxyCODONE 5 MG immediate release tablet oxyCODONE [...] Fax results to liver transplant clinic at [phone]. NURSE VISIT: Please check vitals and assess/monitor [...] effort and are for medical reasons or mosque services or infrequently or short duration when for other reasons) due to deconditioning it would be a taxing effort to receive outpatient services. My signature below is to certify that this patient is under my care and that I, or nurse practitioner, or a physician preschool teacher's assistant working with me, had a gdmm-pv-agvp encounter with this is patient on: 05/03/2025 Follow-up Appointments and Post Hospital Discharge Physician Name Future Appointments Date Time Provider Department Center 05/10/2025 8:20 AM LTRA SURGERY, [facility]OX [facility] [address] [facility] [address] Discharging Physician Signature and Credentials Discharging Physician: Electronically signed by GIOVANNY LOUIS MD 05/03/2025, 2:05 PM Physician to follow up Information PCP: GEOFF GRAVES DO PCP address: [address] [place] [address] / [place] [address] PCP phone number: [phone] PCP fax number: [phone] Follow-up: [facility] Transplant [facility] and their phone / fax is: [phone] / [phone] Bin Tripper Operator and Credentials Provider/Company Name and Contact Number: Bin Tripper Operator Name and Telephone Number: [1] No Known [...] Asya Curry - 05/02/2025 1:33 PM EST [facility] Case Management/Social Work Department Progress [...] C. PCP: GEOFF GRAVES, DO Home Pharmacy: [facility] [address] [facility] [address] [id number] - [place], [place] [address] [place] [address] [facility] - [place], [place] - [address] [facility] [place] [address] Medical Insurance Coverage: Payor: AETNA MANAGED MEDICARE / Plan: AETNA MEDICARE / Product Type: *No Product type* / Other Pertinent Information SW received update from medical team, completed chart review. Per team, pt is not medically ready for discharge. Patient accepted with [facility] ([phone]) for PT/OT, SN, and 2x weekly labs. Patient will need RW at discharge, Philip unable to cover due to insurance. Team made aware. Discharge Plan Anticipated discharge plan: Home with [facility] Anticipated discharge date: 05/03 CM/SW will continue to follow and remain available for discharge planning needs. ASIM Jackson, SECTIONAL BELT MOLD ASSEMBLER People Manager/Cracking Unit Operator (Float) Can be reached by [employer] [phone] or [employer] secure chat * Plan of Care - [...] Progressing * Plan of Care - Tisha Rhodaes RN - 05/01/2025 11:08 PM EST Problem: [...] Silveira RN - 04/30/2025 12:26 PM EST [facility] Case Management/Social Work Department Progress [...] C. PCP: GEOFF GRAVES, DO Home Pharmacy: [facility] [address] [facility] [address] [id number] - [place], [place] - [address] [place] [address] [place] [address] [facility] [place] - [address] [facility] [address] [facility] [place] [address] Medical Insurance Coverage: Payor: AETNA MANAGED MEDICARE / Plan: AETNA MEDICARE / Product Type: *No Product type* / Other Pertinent Information Per RATING CLERK, Pt is not medically ready fro discharge at this time. Pt still has high drain output at this time. Team will continue with diuresis with albumin and assess ascites production. RNCM/SW will continue to follow. Discharge Plan Anticipated discharge plan: Team will continue to monitor Pts progress towards discharge to home with [facility]. Anticipated discharge date: ~5 days CM/SW will [...] Asya Curry - 04/29/2025 12:12 PM EST [facility] Case Management/Social Work Department Progress Note Patient Information Patient Name: Mindy Wade Hospital day: 11 Inpatient/Observation: Inpatient Level of Care: Transplant Admit date: 04/18/2025 Admission diagnosis: Liver transplant recipient (CMS-HCC) [Z94.4] S/P liver transplant (CMS-HCC) [Z94.4] End stage liver disease (CMS-HCC) [K72.10] PMH: has a past medical history of Abdominal hernia (02/21/2023), Alcoholic hepatitis (CMS-HCC), Anxiety, Ascites, Chronic diarrhea (08/21/2022), Cirrhosis ([facility]-H[facility]), Cystitis, Depression, and Hepatitis C. PCP: GEOFF GRAVES, Home Pharmacy: [facility] [address] [facility] [address] [id number] - [place], [place] - [address] [place] [address] [address] [place] [address] [address] [place] [address] [facility] - [place], [place] - [address] [facility] [address] [place] [address] Medical Insurance Coverage: Payor: AETNA MANAGED MEDICARE / Plan: AETNA MEDICARE / Product Type: *No Product type* / Other Pertinent Information SW received update from medical team, completed chart review. Per team, pt is not medically ready for discharge. Patient accepted with [facility] ([phone]) for PT/OT, SN, and 2x weekly labs. Patient will need RW at discharge, Philip unable to cover due to insurance. Team made aware. Discharge Plan Anticipated discharge plan: Home with C Anticipated discharge date: 05/01 CM/SW will continue to follow and remain available for discharge planning needs. ASIM Jackson, SECTIONAL BELT MOLD ASSEMBLER People Manager/Cracking Unit Operator (Deniz) Can be reached by [employer] [phone] or [employer] secure chat * Plan of Care - [...] Macias RN - 04/28/2025 12:25 PM EST [facility] Case Management/Social Work Department Progress [...] C. PCP: GEOFF GRAVES, DO Home Pharmacy: [facility] [address] [facility] [address] [email or web address][id number] - [place] - [address] [place] [address] [facility] - [place], [place] - [address] [facility] [place] [address] Medical Insurance Coverage: Payor: AETNA MANAGED MEDICARE [...] sent and pt has been accepted by [facility] [phone]. Discharge Plan Anticipated discharge plan: [facility] vs Out pt Rehab Anticipated discharge date: 05/03 CM/SW will continue to follow and remain available for discharge planning needs. Alma LUNAN RN Care Management Services Float [phone] * Plan of Care - Shaneka Gerber [...] Johnson RN - 04/27/2025 11:23 AM EST [facility] Case Management/Social Work Department Progress [...] and Hepatitis C. PCP: GEOFF GRAVES DO Rose Pharmacy: [facility] [address] [place] [address] [id number] [place] [facility] [address] [facility] [address] [facility] [address] [place] [address] [place] [address] [facility] - [place] - [address] [facility] [address] [place] [address] Medical Insurance Coverage: Payor: AETNA MANAGED MEDICARE [...] drawn at facility. UPDATE: Call received from [facility] they are unable to accept. Discharge needs [...] Care Coordination - ASIM Enriquez LSW - 04/26/2025 3:19 PM EST [facility] Case Management/Social Work Department Progress [...] C. PCP: GEOFF GRAVES DO Home Pharmacy: [facility] [address] [facility] [address] [email or web address][id number] - [place], [place] [address] [facility] [address] [address] [facility] [address] [facility] [place] - [address] [facility] [address] [address] Medical Insurance Coverage: Payor: AETNA MANAGED MEDICARE / Plan: AETNA MEDICARE / Product Type: *No Product type* / Other Pertinent Information SWCM attended multidisciplinary rounds with the Transplant Team. SWCM reviewed patient's chart. [facility], patient is not medically ready to discharge. SW sent IPR list via Rep[employer] to patient [...] for discharge planning needs. ASIM ENRIQUEZ, AJ [phone] * Plan of Care - Sergey Rodas [...] of medical procedures, or protection of medical assistant prn access. 04/25/20251440 by Bita Lo RN Outcome: Progressing 04/25/20251440 by Bita Lo RN Outcome: Progressing Problem: Non-violent, vxk-omva-ersprpjhtjr restraints Description: Less restrictive alternative interventions will [...] Bita Lo RN Outcome: Progressing Problem: Non-violent, xza-jzmg-fwofjwbirvu restraints Description: Less restrictive alternative interventions will [...] high-protein, high- caloric foods as appropriate. 04/25/2025 1441 by Bita Lo RN Outcome: Progressing 04/25/2025 1441 by Bita Lo RN Outcome: Progressing * Care Coordination - ASIM Enriquez LSW - 04/25/2025 1:17 PM EST [facility] Case Management/Social Work Department Progress [...] and Hepatitis C. PCP: GEOFF GRAVES DO [facility]acy: [facility] [address] [place] [address] [id number] - [place], [place] - [address] [facility] [address] [facility] [address] [place] [address] [place] [address] [facility] - [facility] - [address] [facility] [address] [place] [address] Medical Insurance Coverage: Payor: AETNA MANAGED MEDICARE / Plan: AETNA MEDICARE / Product Type: *No Product type* / Other Pertinent Information RACHEL attended multidisciplinary rounds with the Transplant Team. SWCM reviewed patient's chart. Pertea, patient is not medically ready to discharge. Patient is set up with [facility] [phone] for PT/OT-SN-2x weekly labs. Discharge Plan Anticipated discharge plan: Home w [facility] Anticipated discharge date: 04/29 CM/SW will continue to follow and remain available for discharge planning needs. ASIM ENRIQUEZ, AJ [phone] * Plan of Care - Jaydon Brandt [...] Admitted to SICU post op. Transferred to [facility] 2 days ago and had a [...] PCO2 40 04/24/2025 PO2ART 107 (H) 04/24/2025 PIR3EVW 23 04/24/2025 BEART -2.0 04/24/2025 RTW1VSK 97.3 04/24/2025 R3WURHJR 100 04/24/2025 P:F ratio = 268 Passed [...] Acute Care Surgery, and Surgical Critical Care [facility] Academic Office [phone] For Transfers, call [phone] * Plan of Care - Elza Ramírez RN - 04/23/2025 8:00 AM EDT Patient in bilateral soft wrist restraints to maintain patient safety and protect medical devices. Will continue to monitor and reassess need for restraints. See restraint flowsheet for further documentation. Problem: Non-violent, ecm-dmwj-heqkawqvetb restraints Description: Less restrictive alternative interventions will [...] of medical procedures, or protection of medical assistant prn access. Outcome: Progressing * Plan of Care [...] Progressing * Care Coordination - ASIM Enriquez, SECTIONAL BELT MOLD ASSEMBLER - 04/22/2025 2:03 PM EDT [facility] Case Management/Social Work Department Progress [...] C. PCP: GEOFF GRAVES DO Home Pharmacy: [facility] [address] [facility] [address] [email or web address][id number] - [place], [place] - [address] [place] [place] [facility] [address] [address] [address] [place] [address] [place] [address] [facility] - [place], [place] [address] [facility] [address] [place] [address] Medical Insurance Coverage: Payor: AETNA MANAGED MEDICARE [...] at home. Patient is set up with [facility] [phone] for PT/OT-SN-2x weekly labs. Discharge Plan Anticipated discharge plan: Home w [facility] Anticipated discharge date: 04/25 CM/SW will continue to follow and remain available for discharge planning needs. ASIM ENRIQUEZ, AJ [phone] * Plan of Care - Marilee Ramsey [...] of pocket expense of $75.00. Shelly Vick Cracking Unit Operator Shaker Washer Care Management Services [phone] * Care Coordination - ASIM Enriquez, SECTIONAL BELT MOLD ASSEMBLER - 04/21/2025 11:42 AM EDT [facility] Case Management/Social Work Department Progress [...] C. PCP: GEOFF GRAVES DO Home Pharmacy: [facility] [address] [facility] [address] [email or web address][id number] - [place], [place] [address] [facility] [address] [place] [address] [address] [place] [address] [place] [address] [facility] - [facility] - [address] [facility] [address] [place] [address] Medical Insurance Coverage: Payor: AETNA MANAGED MEDICARE / Plan: AETNA MEDICARE / Product Type: *No Product type* / Other Pertinent Information SWCM attended multidisciplinary rounds with the Transplant Team. SWCM reviewed patient's chart. Perteam, patient is not medically ready to discharge. Patient is set up with [facility] [phone] for PT/OT-SN-2x weekly lab draws. DME-tub transfer bench-is not covered by insurance. Discharge Plan Anticipated discharge plan: Home w [facility] Anticipated discharge date: 04/23 CM/SW will continue to follow and remain available for discharge planning needs. ASIM ENRIQUEZ, AJ [phone] * Care Coordination - Krys Vick - 04/20/2025 3:10 PM EDT [facility] was advised patient require [facility] for PT/OT-SN-2x weekly labs for discharge. [facility] sent referrals, awaiting response. [facility] will follow. [facility] [phone] accepted patient for home pt/ot/sn. -this has been communicated to the team. Shelly Vick Cracking Unit Operator [employer]aker Washer Care Management Services [phone] * Plan of Care - Marylu Haddad [...] - 04/19/2025 1:01 AM EDT Problem: Non-violent, ncu-dqko-yahezggneap restraints Description: Less restrictive alternative interventions will [...] of medical procedures, or protection of medical assistant prn access. 04/19/2025 0101 by Enedina Spear RN Outcome: Completed 04/19/2025 0100 by Enedina Spear RN Outcome: Progressing * Plan of Care - Enedina Spear RN - 04/18/2025 8:00 PM EDT Problem: High Fall Risk Precautions Goal: High Fall Risk Precautions Outcome: Progressing Problem: Non-violent, tso-arzj-swiwncssfdd restraints Description: Less restrictive alternative interventions will [...] of medical procedures, or protection of medical assistant prn access. Outcome: Progressing Patient in bilateral locked [...] Routine 04/29/2025 11:54 AM EST US DUPLEX EFU-FIKRMB-XLKHYLG COMPLETE STAT 04/29/2025 11:18 AM EST US [...] Routine 04/25/2025 11:34 AM EST US DUPLEX JMZ-MVRBRY-ETAIKKU COMPLETE STAT 04/25/2025 10:36 AM EST US [...] Routine 04/23/2025 6:09 PM EDT US DUPLEX YYA-XZUSKE-DTUWKQY COMPLETE STAT 04/23/2025 2:12 PM EDT US [...] AM EDT BLOOD GAS, ARTERIAL STAT 04/23/2025 4:26 AM EDT INTUBATION Routine 04/23/2025 3:44 AM [...] Routine 04/21/2025 12:31 PM EDT US DUPLEX SBR-UJBISK-KMSPHGU COMPLETE STAT 04/21/2025 9:47 AM EDT US [...] Routine 04/19/2025 12:37 PM EDT US DUPLEX RWY-AVMJPH-OSUQUDO COMPLETE STAT 04/19/2025 11:03 AM EDT US [...] POCT HEMOGLOBIN Routine 04/18/2025 9:17 AM EDT POC HCG QUALITATIVE, URINE Routine 04/18/2025 6:16 [...] scan (05/21/2025 4:02 PM EST) us Scanning [facility] SCAN DOCS - NO RESULTS Final Res ult * EKG - scan (05/04/2025 7:57 AM EST) us Scanning [facility] SCAN DOCS - NO RESULTS Final Res ult * Blood Transfusion - scan (05/04/2025 7:49 AM EST) us Scanning [facility] SCAN DOCS - NO RESULTS Final Res ult * Prepare RBC, leukoreduced, 1 Units (05/04/2025 6:15 AM EST) Product Code [id number] HCLL Unit Number [id number] HCLL Dispense Status Presumed Transfused_PT HCLL Blood Expiration Date [id number] HCLL Coding System [id number] HCLL Blood Bank Product us Gloria Chen MD BLOOD BANK PRODUCT ORDERABLES Fi nal Result HCLL * Transfuse RBC Transfusion Rate: Per dept routine (05/03/2025 2:58 PM EST) us Gloria Chen MD NURSING TREATMENT ORDERABLES - B LOOD ADMIN Final Result Performing Organization Address [facility] Co de Phone Number EXTERNAL * Transfuse RBC Transfusion Rate: Per dept routine, 1 Units (05/03/2025 2:58 PM EST) us Gloria Chen MD NURSING TREATMENT ORDERABLES - B LOOD ADMIN Final Result Performing Organization Address City/[facility]/ZIP Co de Phone Number EXTERNAL * (ABNORMAL) POC Glucose Monitoring Device (05/03/2025 12:17 PM EST) POC Glucose Monitoring Device 176(H) 70 - 100 mg/dL 05/03/2025 12:18 PM EST [facility] Blood 05/03/2025 12:1 7 PM EST 05/03/2025 12:18 PM EST us uLdin Jose MD POINT OF CARE TEST ORDERABLES Fi nal Result Performing Organization Address [facility] Co de Phone Number [facility] [address] [facility]. [address] * Antibody Screen (05/03/2025 9:05 AM EST) Antibody Screen Negative 05/03/2025 10:12 AM EST [facility] Blood 05/03/2025 9:05 AM EST 05/03/2025 9:16 AM EST Narrative [facility] - 05/03/2025 10:29 AM EST Testing performed by [facility] Transfusion Service us Gloria Chen MD BLOOD BANK TEST ORDERABLES Final Result Performing Organization Address [facility] Co de Phone Number [facility] [address] [facility]. [address] * ABO/Rh (05/03/2025 9:05 AM EST) ABO Grouping O 05/03/2025 9:58 AM EST [facility] Rh Type Positive 05/03/2025 9:58 AM EST [facility] Blood 05/03/2025 9:0 5 AM EST 05/03/2025 9:16 AM EST Gloria Chen MD BLOOD BANK TEST ORDERABLES Final Result Performing Organization Address City/[facility]/ZIP Co de Phone Number [facility] [address] * POC Glucose Monitoring Device (05/03/2025 7:52 AM EST) POC Glucose Monitoring Device 99 70 - 100 mg/dL 05/03/2025 7:53 AM EST [facility] Blood 05/03/2025 7:52 AM EST 05/03/2025 7:53 AM EST Ludin Jose MD POINT OF CARE TEST ORDERABLES Fi nal Result Performing Organization Address City/[facility] Co de Phone Number [facility] [address] * (ABNORMAL) Renal Function Panel w/EGFR (05/03/2025 5:46 AM EST) Pathologist [facility] Sodium 135 133 - 146 mmol/L 05/03/2025 6:38 AM EST [facility] Potassium 4.3 3.5 - 5.3 mmol/L 05/03/2025 6:38 AM EST [facility] Chloride 103 98 - 110 mmol/L 05/03/2025 6:38 AM EST [facility] CO2 25 21 - 33 mmol/L 05/03/2025 6:38 AM EST [facility] Comment:High lactate dehydro genase concentrations in patient samples may cause falsely increased bicarbonate results. If markedly elevated LDH is observed or suspected, please assess results in conjunction with patient`s clinical presentation. In cases of discrepant results, consider evaluating CO2 in with a blood gas order. Anion Gap 7 3 - 16 mmol/L 05/03/2025 6:38 AM EST [facility] BUN 37(H) 7 - 25 mg/dL 05/03/2025 6:38 AM EST [facility] Creatinine 1.16 0.60 - 1.30 mg/dL 05/03/2025 6:38 AM EST [facility] Glucose 100 70 - 100 mg/dL 05/03/2025 6:38 AM EST [facility] Calcium 8.3(L) 8.6 - 10.3 mg/dL 05/03/2025 6:38 AM EST [facility] Phosphorus 2.8 2.1 - 4.7 mg/dL 05/03/2025 6:38 AM EST [facility] Albumin 3.5 3.5 - 5.7 g/dL 05/03/2025 6:38 AM EST [facility] Osmolality, Calculated 289 278 - 305 mOsm/kg 05/03/2025 6:38 AM EST [facility] EGFR 63 05/03/2025 6:38 AM EST [facility] Comment:As of 2021, the estimated [...] CRUZ LAB BLOOD ORDERABLES Final Re sult [facility] [address] [place] [address], [facility] * Magnesium (05/03/2025 5:46 AM EST) Magnesium 1.9 1.5 - 2.5 mg/dL 05/03/2025 6:38 AM EST [facility] Plasma 05/03/2025 5:46 AM EST 05/03/2025 6:11 AM EST Raya CRUZ LAB BLOOD ORDERABLES Final Re sult Performing Organization Address [facility] Co de Phone Number [facility] [address] [facility]. [address] * (ABNORMAL) Hepatic Function Panel (05/03/2025 5:46 AM EST) Total Bilirubin 2.4(H) 0.0 - 1.5 mg/dL 05/03/2025 6:38 AM EST [facility] Bilirubin, Direct 1.31(H) 0.00 - 0.40 mg/dL 05/03/2025 6:38 AM EST [facility] AST 54(H) 13 - 39 U/L 05/03/2025 6:38 AM EST [facility] ALT 108(H) 7 - 52 U/L 05/03/2025 6:38 AM EST [facility] Alkaline Phosphatase 849(H) 36 - 125 U/L 05/03/2025 6:38 AM EST [facility] Total Protein 4.7(L) 6.4 - 8.9 g/dL 05/03/2025 6:38 AM EST [facility] Albumin 3.5 3.5 - 5.7 g/dL 05/03/2025 6:38 AM EST [facility] Bilirubin, Indirect 1.09 0.00 - 1.10 mg/dL 05/03/2025 6:38 AM EST [facility] Plasma 05/03/2025 5:4 6 AM EST 05/03/2025 6:11 AM EST Raya CRUZ LAB BLOOD ORDERABLES Final Re sult [facility] [address] * (ABNORMAL) CBC (05/03/2025 5:46 AM EST) WBC 5.4 3.8 - 10.8 10E3/uL 05/03/2025 6:24 AM EST [facility] RBC 2.26(L) 3.80 - 5.10 10E6/uL 05/03/2025 6:24 AM EST [facility] Hemoglobin 7.1(L) 11.7 - 15.5 g/dL 05/03/2025 6:24 AM EST [facility] Hematocrit 20.9(L) 35.0 - 45.0 % 05/03/2025 6:24 AM EST [facility] MCV 92.3 80.0 - 100.0 fL 05/03/2025 6:24 AM EST [facility] MCH 31.3 27.0 - 33.0 pg 05/03/2025 6:24 AM EST [facility] MCHC 33.9 32.0 - 36.0 g/dL 05/03/2025 6:24 AM EST [facility] RDW 21.0(H) 11.0 - 15.0 % 05/03/2025 6:24 AM EST [facility] Platelets 147 140 - 400 10E3/uL 05/03/2025 6:24 AM EST [facility] MPV 11.1 7.5 - 11.5 fL 05/03/2025 6:24 AM EST [facility] Whole Blood 05/03/2025 5:46 AM EST 05/03/2025 6:11 AM EST Raya CRUZ LAB BLOOD ORDERABLES Final Re sult [facility] [address] * Tacrolimus level (05/03/2025 5:46 AM EST) Tacrolimus (LC-MS) 7.2 3.0 - 15.0 ng/mL 05/03/2025 10:24 AM EST [facility] Comment:Performed via liquid chromatography tandem mass spectrometry. Detection limit: 1 ng/mL. Individual target concentrations may vary due to target organ and time after transplant. This test has been developed and its performance characteristics determined by [facility] which is certified under [...] ORDERABLES Final Resul t Performing Organization Address City/[facility]/ZIP Co de Phone Number [address] * (ABNORMAL) POC Glucose Monitoring Device (05/02/2025 9:09 PM EST) POC Glucose Monitoring Device 138(H) 70 - 100 mg/dL 05/02/2025 9:10 PM EST [facility] Blood 05/02/2025 9:09 PM EST 05/02/2025 9:09 PM EST Ludin Jose MD POINT OF CARE TEST ORDERABLES Fi nal Result Performing Organization Address [facility] de Phone Number [address] * (ABNORMAL) POC Glucose Monitoring Device (05/02/2025 5:02 PM EST) POC Glucose Monitoring Device 184(H) 70 - 100 mg/dL 05/02/2025 5:03 PM EST [facility] Blood 05/02/2025 5:02 PM EST 05/02/2025 5:03 PM EST Ludin Jose MD POINT OF CARE TEST ORDERABLES Fi nal Result Performing Organization Address City/[facility] Co de Phone Number [address] * POC Glucose Monitoring Device (05/02/2025 10:52 AM EST) POC Glucose Monitoring Device 100 70 - 100 mg/dL 05/02/2025 10:53 AM EST [facility] Blood 05/02/2025 10:5 2 AM EST 05/02/2025 10:52 AM EST us Ludin Jose MD POINT OF CARE TEST ORDERABLES Fi nal Result [facility] [address] [facility]. [address] * POC Glucose Monitoring Device (05/02/2025 5:58 AM EST) POC Glucose Monitoring Device 85 70 - 100 mg/dL 05/02/2025 5:58 AM EST [facility] Blood 05/02/2025 5:58 AM EST 05/02/2025 5:58 AM EST us Ludin Jose MD POINT OF CARE TEST ORDERABLES Fi nal Result Performing Organization Address [facility] de Phone Number [facility] [address] [facility]. [address] * (ABNORMAL) Renal Function Panel w/EGFR (05/02/2025 5:34 AM EST) Sodium 135 133 - 146 mmol/L 05/02/2025 6:11 AM EST [facility] Potassium 4.1 3.5 - 5.3 mmol/L 05/02/2025 6:11 AM EST [facility] Chloride 103 98 - 110 mmol/L 05/02/2025 6:11 AM EST [facility] CO2 26 21 - 33 mmol/L 05/02/2025 6:11 AM EST [facility] Comment:High lactate dehydro genase concentrations in patient samples may cause falsely increased bicarbonate results. If markedly elevated LDH is observed or suspected, please assess results in conjunction with patient`s clinical presentation. In cases of discrepant results, consider evaluating CO2 in with a blood gas order. Anion Gap 6 3 - 16 mmol/L 05/02/2025 6:11 AM EST [facility] BUN 26(H) 7 - 25 mg/dL 05/02/2025 6:11 AM EST [facility] Creatinine 0.99 0.60 - 1.30 mg/dL 05/02/2025 6:11 AM EST [facility] Glucose 79 70 - 100 mg/dL 05/02/2025 6:11 AM EST [facility] Calcium 8.3(L) 8.6 - 10.3 mg/dL 05/02/2025 6:11 AM EST [facility] Phosphorus 3.0 2.1 - 4.7 mg/dL 05/02/2025 6:11 AM EST [facility] Albumin 3.3(L) 3.5 - 5.7 g/dL 05/02/2025 6:11 AM EST [facility] Osmolality, Calculated 284 278 - 305 mOsm/kg 05/02/2025 6:11 AM EST [facility] EGFR 76 05/02/2025 6:11 AM EST [facility] Comment:As of 2021, the estimated [...] CRUZ LAB BLOOD ORDERABLES Final Re sult [facility] [address] [place] [address], [facility] * Magnesium (05/02/2025 5:34 AM EST) Magnesium 1.8 1.5 - 2.5 mg/dL 05/02/2025 6:11 AM EST [facility] Plasma 05/02/2025 5:34 AM EST 05/02/2025 5:42 AM EST Raya CRUZ LAB BLOOD ORDERABLES Final Re sult [facility] [address] [facility]. [address] * (ABNORMAL) Hepatic Function Panel (05/02/2025 5:34 AM EST) Total Bilirubin 3.2(H) 0.0 - 1.5 mg/dL 05/02/2025 6:11 AM EST [facility] Bilirubin, Direct 2.02(H) 0.00 - 0.40 mg/dL 05/02/2025 6:11 AM EST [facility] AST 94(H) 13 - 39 U/L 05/02/2025 6:11 AM EST [facility] ALT 135(H) 7 - 52 U/L 05/02/2025 6:11 AM EST [facility] Alkaline Phosphatase 869(H) 36 - 125 U/L 05/02/2025 6:11 AM EST [facility] Total Protein 4.5(L) 6.4 - 8.9 g/dL 05/02/2025 6:11 AM EST [facility] Albumin 3.3(L) 3.5 - 5.7 g/dL 05/02/2025 6:11 AM EST [facility] Bilirubin, Indirect 1.18(H) 0.00 - 1.10 mg/dL 05/02/2025 6:11 AM EST [facility] Plasma 05/02/2025 5:34 AM EST 05/02/2025 5:42 AM EST Raya CRUZ LAB BLOOD ORDERABLES Final Re sult [facility] [address] [place] [facility]. [address] * (ABNORMAL) CBC (05/02/2025 5:34 AM EST) WBC 5.8 3.8 - 10.8 10E3/uL 05/02/2025 5:56 AM EST [facility] RBC 2.26(L) 3.80 - 5.10 10E6/uL 05/02/2025 5:56 AM EST [facility] Hemoglobin 7.3(L) 11.7 - 15.5 g/dL 05/02/2025 5:56 AM EST [facility] Hematocrit 20.8(L) 35.0 - 45.0 % 05/02/2025 5:56 AM EST [facility] MCV 92.0 80.0 - 100.0 fL 05/02/2025 5:56 AM EST [facility] MCH 32.1 27.0 - 33.0 pg 05/02/2025 5:56 AM EST [facility] MCHC 34.9 32.0 - 36.0 g/dL 05/02/2025 5:56 AM EST [facility] RDW 20.6(H) 11.0 - 15.0 % 05/02/2025 5:56 AM EST [facility] Platelets 109(L) 140 - 400 10E3/uL 05/02/2025 5:56 AM EST [facility] MPV 10.8 7.5 - 11.5 fL 05/02/2025 5:56 AM EST [facility] Whole Blood 05/02/2025 5:34 AM EST 05/02/2025 5:42 AM EST us Raya CRUZ LAB BLOOD ORDERABLES Final Re sult Performing Organization Address City/[facility]/ZIP Co de Phone Number [facility] [address] [facility]. [address] * (ABNORMAL) Triglycerides (05/02/2025 5:34 AM EST) Triglycerides 254(H) 10 - 149 mg/dL 05/02/2025 6:11 AM EST [facility] Plasma 05/02/2025 5:34 AM EST 05/02/2025 5:42 AM EST us Gloria Chen MD LAB BLOOD ORDERABLES Final Resul t [facility] [address] * Tacrolimus level (05/02/2025 5:34 AM EST) Pathologist [facility] Tacrolimus (LC-MS) 7.9 3.0 - 15.0 ng/mL 05/02/2025 9:12 AM EST [facility] Comment:Performed via liquid chromatography tandem mass spectrometry. Detection limit: 1 ng/mL. Individual target concentrations may vary due to target organ and time after transplant. This test has been developed and its performance characteristics determined by [facility] which is certified under the Clinical Laboratory [...] ORDERABLES Final Resul t Performing Organization Address City/[facility]/ZIP Co de Phone Number [facility] [address] [facility]. [address] * (ABNORMAL) POC Glucose Monitoring Device (05/01/2025 11:58 PM EST) [facility] POC Glucose Monitoring Device 114(H) 70 - 100 mg/dL 05/01/2025 11:58 PM EST [facility] Blood 05/01/2025 11:5 8 PM EST 05/01/2025 11:58 PM EST Ludin Jose MD POINT OF CARE TEST ORDERABLES Fi nal Result [facility] [address] * MRI Abdomen W and WO contrast [...] Dick MD at 05/02/2025 9:24 AM EST us Precious Jhaveri MD IMG MRI ORDERABLES Fin al Result * (ABNORMAL) POC Glucose Monitoring Device (05/01/2025 11:14 AM EST) POC Glucose Monitoring Device 110(H) 70 - 100 mg/dL 05/01/2025 11:14 AM EST [facility] Blood 05/01/2025 11:1 4 AM EST 05/01/2025 11:14 AM EST Ludin Jose MD POINT OF CARE TEST ORDERABLES Fi nal Result Performing Organization Address [facility] Co de Phone Number [facility] [address] * Protime-INR, STAT (05/01/2025 10:21 AM EST) Protime 13.8 12.1 - 15.1 seconds 05/01/2025 11:14 AM EST [facility] INR 1.0 0.9 - 1.1 05/01/2025 11:14 AM EST [facility] Comment: RECOMMENDED THERAPEUTIC RANGES USING INR : Stable oral anticoagulant therapy: 2.0 - 3.0 Mechanical prosthetic heart valve: 2.5 - 3.5 Recurrent acute myocardial infarction: 2.5 - 3.5 Plasma 05/01/2025 10:2 1 AM EST 05/01/2025 10:29 AM EST us Shannon Johns MD LAB BLOOD ORDERABLES Final Res ult Performing Organization Address City/[facility]/ZIP Co de Phone Number [facility] [address] * POC Glucose Monitoring Device (05/01/2025 7:38 AM EST) POC Glucose Monitoring Device 100 70 - 100 mg/dL 05/01/2025 7:38 AM EST [facility] Blood 05/01/2025 7:38 AM EST 05/01/2025 7:38 AM EST Ludin Jose MD POINT OF CARE TEST ORDERABLES Fi nal Result [facility] [address] * (ABNORMAL) Renal Function Panel w/EGFR (05/01/2025 6:09 AM EST) Sodium 136 133 - 146 mmol/L 05/01/2025 7:20 AM EST [facility] Potassium 4.1 3.5 - 5.3 mmol/L 05/01/2025 7:20 AM [facility] Chloride 104 98 - 110 mmol/L 05/01/2025 7:20 AM [facility] CO2 25 21 - 33 mmol/L 05/01/2025 7:20 AM [facility] Comment:High lactate dehydro genase concentrations in patient samples may cause falsely increased bicarbonate results. If markedly elevated LDH is observed or suspected, please assess results in conjunction with patient`s clinical presentation. In cases of discrepant results, consider evaluating CO2 in with a blood gas order. Anion Gap 7 3 - 16 mmol/L 05/01/2025 7:20 AM EST [facility] BUN 17 7 - 25 mg/dL 05/01/2025 7:20 AM [facility] Creatinine 0.79 0.60 - 1.30 mg/dL 05/01/2025 7:20 AM [facility] Glucose 85 70 - 100 mg/dL 05/01/2025 7:20 AM [facility] Calcium 8.1(L) 8.6 - 10.3 mg/dL 05/01/2025 7:20 AM [facility] Phosphorus 2.7 2.1 - 4.7 mg/dL 05/01/2025 7:20 AM [facility] Albumin 3.3(L) 3.5 - 5.7 g/dL 05/01/2025 7:20 AM EST [facility] Osmolality, Calculated 283 278 - 305 mOsm/kg 05/01/2025 7:20 AM EST [facility] EGFR >90 05/01/2025 7:20 AM EST [facility] Comment: As of 2021, the [...] ORDERABLES Final Re sult Performing Organization Address City/[facility]/ZIP Co de Phone Number [facility] [address] * Magnesium (05/01/2025 6:09 AM EST) Magnesium 1.7 1.5 - 2.5 mg/dL 05/01/2025 7:20 AM EST [facility] Plasma 05/01/2025 6:09 AM EST 05/01/2025 6:30 AM EST Raya CRUZ LAB BLOOD ORDERABLES Final Re sult [facility] [address] [facility] * (ABNORMAL) Hepatic Function Panel (05/01/2025 6:09 AM EST) Total Bilirubin 3.5(H) 0.0 - 1.5 mg/dL 05/01/2025 7:20 AM EST [facility] Bilirubin, Direct 2.21(H) 0.00 - 0.40 mg/dL 05/01/2025 7:20 AM EST [facility] AST 113(H) 13 - 39 U/L 05/01/2025 7:20 AM EST [facility] ALT 140(H) 7 - 52 U/L 05/01/2025 7:20 AM EST [facility] Alkaline Phosphatase 839(H) 36 - 125 U/L 05/01/2025 7:20 AM EST [facility] Total Protein 4.5(L) 6.4 - 8.9 g/dL 05/01/2025 7:20 AM EST [facility] Albumin 3.3(L) 3.5 - 5.7 g/dL 05/01/2025 7:20 AM EST [facility] Bilirubin, Indirect 1.29(H) 0.00 - 1.10 mg/dL 05/01/2025 7:20 AM EST [facility] Plasma 05/01/2025 6:09 AM EST 05/01/2025 6:30 AM EST Raya CRUZ LAB BLOOD ORDERABLES Final Re sult [facility] [address] * (ABNORMAL) CBC (05/01/2025 6:09 AM EST) WBC 7.5 3.8 - 10.8 10E3/uL 05/01/2025 6:51 AM EST [facility] RBC 2.55(L) 3.80 - 5.10 10E6/uL 05/01/2025 6:51 AM EST [facility] Hemoglobin 8.0(L) 11.7 - 15.5 g/dL 05/01/2025 6:51 AM EST [facility] Hematocrit 23.4(L) 35.0 - 45.0 % 05/01/2025 6:51 AM EST [facility] MCV 91.5 80.0 - 100.0 fL 05/01/2025 6:51 AM EST [facility] MCH 31.2 27.0 - 33.0 pg 05/01/2025 6:51 AM EST [facility] MCHC 34.1 32.0 - 36.0 g/dL 05/01/2025 6:51 AM EST [facility] RDW 21.5(H) 11.0 - 15.0 % 05/01/2025 6:51 AM EST [facility] Platelets 102(L) 140 - 400 10E3/uL 05/01/2025 6:51 AM EST [facility] MPV 10.6 7.5 - 11.5 fL 05/01/2025 6:51 AM EST [facility] Whole Blood 05/01/2025 6:09 AM EST 05/01/2025 6:30 AM EST us Raya CRUZ LAB BLOOD ORDERABLES Final Re sult [facility] [address] [id number] * Tacrolimus level (05/01/2025 6:09 AM EST) Tacrolimus (LC-MS) 6.9 3.0 - 15.0 ng/mL 05/01/2025 3:08 PM EST [facility] Comment:Performed via liquid chromatography tandem mass spectrometry. Detection limit: 1 ng/mL. Individual target concentrations may vary due to target organ and time after transplant. This test has been developed and its performance characteristics determined by [facility] which is certified under [...] 6:09 AM EST 05/01/2025 6:30 AM EST us Gloria Chen MD LAB BLOOD ORDERABLES Final Resul t Performing Organization Address [facility] Co de Phone Number [address] * (ABNORMAL) POC Glucose Monitoring Device (05/01/2025 12:02 AM EST) POC Glucose Monitoring Device 168(H) 70 - 100 mg/dL 05/01/2025 12:03 AM EST [facility] Blood 05/01/2025 12:0 2 AM EST 05/01/2025 12:03 AM EST us Ludin Jose MD POINT OF CARE TEST ORDERABLES Fi nal Result Performing Organization Address [facility] de Phone Number [address] * (ABNORMAL) POC Glucose Monitoring Device (04/30/2025 4:59 PM EST) POC Glucose Monitoring Device 191(H) 70 - 100 mg/dL 04/30/2025 5:02 PM EST [facility] Blood 04/30/2025 4:59 PM EST 04/30/2025 5:01 PM EST us uLdin Jose MD POINT OF CARE TEST ORDERABLES Fi nal Result Performing Organization Address [facility] Co de Phone Number [address] * (ABNORMAL) POC Glucose Monitoring Device (04/30/2025 3:47 PM EST) POC Glucose Monitoring Device 158(H) 70 - 100 mg/dL 04/30/2025 3:47 PM EST [facility] Blood 04/30/2025 3:47 PM EST 04/30/2025 3:47 PM EST us Ludin Jose MD POINT OF CARE TEST ORDERABLES Fi nal Result [facility] [address] [facility]. [address] * (ABNORMAL) POC Glucose Monitoring Device (04/30/2025 12:08 PM EST) POC Glucose Monitoring Device 121(H) 70 - 100 mg/dL 04/30/2025 12:09 PM EST [facility] Blood 04/30/2025 12:0 8 PM EST 04/30/2025 12:09 PM EST us Ludin Jose MD POINT OF CARE TEST ORDERABLES Fi nal Result Performing Organization Address [facility] Co de Phone Number [facility] [address] [facility]. [address] * POC Glucose Monitoring Device (04/30/2025 8:44 AM EST) POC Glucose Monitoring Device 98 70 - 100 mg/dL 04/30/2025 8:45 AM EST [facility] Blood 04/30/2025 8:44 AM EST 04/30/2025 8:44 AM EST us Ludin Jose MD POINT OF CARE TEST ORDERABLES Fi nal Result Performing Organization Address [facility] Co de Phone Number [facility] [address] [facility]. [address] * (ABNORMAL) Renal Function Panel w/EGFR (04/30/2025 5:12 AM EST) Sodium 136 133 - 146 mmol/L 04/30/2025 6:36 AM EST [facility] Potassium 3.5 3.5 - 5.3 mmol/L 04/30/2025 6:36 AM EST [facility] Chloride 105 98 - 110 mmol/L 04/30/2025 6:36 AM EST [facility] CO2 23 21 - 33 mmol/L 04/30/2025 6:36 AM EST [facility] Comment:High lactate dehydro genase concentrations in patient samples may cause falsely increased bicarbonate results. If markedly elevated LDH is observed or suspected, please assess results in conjunction with patient`s clinical presentation. In cases of discrepant results, consider evaluating CO2 in with a blood gas order. Anion Gap 8 3 - 16 mmol/L 04/30/2025 6:36 AM EST [facility] BUN 18 7 - 25 mg/dL 04/30/2025 6:36 AM EST [facility] Creatinine 0.87 0.60 - 1.30 mg/dL 04/30/2025 6:36 AM EST [facility] Glucose 106(H) 70 - 100 mg/dL 04/30/2025 6:36 AM EST [facility] Calcium 8.0(L) 8.6 - 10.3 mg/dL 04/30/2025 6:36 AM EST [facility] Phosphorus 2.2 2.1 - 4.7 mg/dL 04/30/2025 6:36 AM EST [facility] Albumin 3.2(L) 3.5 - 5.7 g/dL 04/30/2025 6:36 AM EST [facility] Osmolality, Calculated 284 278 - 305 mOsm/kg 04/30/2025 6:36 AM EST [facility] EGFR 89 04/30/2025 6:36 AM EST [facility] Comment:As of 2021, the estimated [...] CRUZ LAB BLOOD ORDERABLES Final Re sult [facility] [address] [facility]. [address] * Magnesium (04/30/2025 5:12 AM EST) Magnesium 1.7 1.5 - 2.5 mg/dL 04/30/2025 6:36 AM EST [facility] Plasma 04/30/2025 5:12 AM EST 04/30/2025 5:55 AM EST Raya CRUZ LAB BLOOD ORDERABLES Final Re sult Performing Organization Address City/[facility]/ZIP Co de Phone Number [facility] [address] [facility]. [address] * (ABNORMAL) Hepatic Function Panel (04/30/2025 5:12 AM EST) Total Bilirubin 3.1(H) 0.0 - 1.5 mg/dL 04/30/2025 6:36 AM EST [facility] Bilirubin, Direct 2.10(H) 0.00 - 0.40 mg/dL 04/30/2025 6:36 AM EST [facility] AST 85(H) 13 - 39 U/L 04/30/2025 6:36 AM EST [facility] ALT 98(H) 7 - 52 U/L 04/30/2025 6:36 AM EST [facility] Alkaline Phosphatase 600(H) 36 - 125 U/L 04/30/2025 6:36 AM EST [facility] Total Protein 4.2(L) 6.4 - 8.9 g/dL 04/30/2025 6:36 AM EST [facility] Albumin 3.2(L) 3.5 - 5.7 g/dL 04/30/2025 6:36 AM EST [facility] Bilirubin, Indirect 1.00 0.00 - 1.10 mg/dL 04/30/2025 6:36 AM EST [facility] Plasma 04/30/2025 5:12 AM EST 04/30/2025 5:55 AM EST Raya CRUZ LAB BLOOD ORDERABLES Final Re sult [facility] [address] * (ABNORMAL) CBC (04/30/2025 5:12 AM EST) WBC 4.3 3.8 - 10.8 10E3/uL 04/30/2025 6:08 AM EST [facility] RBC 2.29(L) 3.80 - 5.10 10E6/uL 04/30/2025 6:08 AM EST [facility] Hemoglobin 7.2(L) 11.7 - 15.5 g/dL 04/30/2025 6:08 AM EST [facility] Hematocrit 21.2(L) 35.0 - 45.0 % 04/30/2025 6:08 AM EST [facility] MCV 92.2 80.0 - 100.0 fL 04/30/2025 6:08 AM EST [facility] MCH 31.3 27.0 - 33.0 pg 04/30/2025 6:08 AM [facility] MCHC 33.9 32.0 - 36.0 g/dL 04/30/2025 6:08 AM [facility] RDW 20.8(H) 11.0 - 15.0 % 04/30/2025 6:08 AM [facility] Platelets 87(L) 140 - 400 10E3/uL 04/30/2025 6:08 AM [facility] MPV 10.4 7.5 - 11.5 fL 04/30/2025 6:08 AM [facility] Whole Blood 04/30/2025 5:12 AM EST 04/30/2025 5:55 AM EST Raya CRUZ LAB BLOOD ORDERABLES Final Re sult [facility] [address] * Tacrolimus level (04/30/2025 5:12 AM EST) Pathologist [facility] Tacrolimus (LC-MS) 7.5 3.0 - 15.0 ng/mL 04/30/2025 3:31 PM EST [facility] Comment:Performed via liquid chromatography tandem mass spectrometry. Detection limit: 1 ng/mL. Individual target concentrations may vary due to target organ and time after transplant. This test has been developed and its performance characteristics determined by [facility] which is certified under [...] ORDERABLES Final Resul t Performing Organization Address City/[facility]/ZIP Co de Phone Number [address] * (ABNORMAL) POC Glucose Monitoring Device (04/29/2025 10:12 PM EST) POC Glucose Monitoring Device 127(H) 70 - 100 mg/dL 04/29/2025 10:13 PM EST [facility] Blood 04/29/2025 10:1 2 PM EST 04/29/2025 10:13 PM EST us Ludin Jose MD POINT OF CARE TEST ORDERABLES Fi nal Result Performing Organization Address City/[facility]/ZIP Co de Phone Number [address] * (ABNORMAL) POC Glucose Monitoring Device (04/29/2025 5:04 PM EST) POC Glucose Monitoring Device 151(H) 70 - 100 mg/dL 04/29/2025 5:05 PM EST [facility] Blood 04/29/2025 5:04 PM EST 04/29/2025 5:05 PM EST us Ludin Jose MD POINT OF CARE TEST ORDERABLES Fi nal Result Performing Organization Address [facility] Co de Phone Number [facility] [address] * (ABNORMAL) POC Glucose Monitoring Device (04/29/2025 12:58 PM EST) POC Glucose Monitoring Device 169(H) 70 - 100 mg/dL 04/29/2025 12:59 PM EST [facility] Blood 04/29/2025 12:5 8 PM EST 04/29/2025 12:59 PM EST us Ludin Jose MD POINT OF CARE TEST ORDERABLES Fi nal Result Performing Organization Address [facility] Co de Phone Number [facility] [address] [facility]. [address] * (ABNORMAL) POC Glucose Monitoring Device (04/29/2025 11:54 AM EST) POC Glucose Monitoring Device 150(H) 70 - 100 mg/dL 04/29/2025 11:55 AM EST [facility] Blood 04/29/2025 11:5 4 AM EST 04/29/2025 11:55 AM EST us Ludin Jose MD POINT OF CARE TEST ORDERABLES Fi nal Result Performing Organization Address [facility] Co de Phone Number [facility] [address] [facility]. [address] * US Abdomen Limited (04/29/2025 11:18 AM [...] EXAM: US ABDOMEN LIMITED EXAM: US DUPLEX [id number] COMPLETE INDICATION: Post-op liver transplant, right lobe [...] EXAM: US ABDOMEN LIMITED EXAM: US DUPLEX [id number] COMPLETE INDICATION: Post-op liver transplant, right lobe [...] US ORDERABLES Final Result * US Duplex Iql-Oah-Nycrucx Comp (04/29/2025 11:18 AM EST) Anatomical Region [...] EXAM: US ABDOMEN LIMITED EXAM: US DUPLEX [id number] COMPLETE INDICATION: Post-op liver transplant, right lobe [...] EXAM: US ABDOMEN LIMITED EXAM: US DUPLEX [id number] COMPLETE INDICATION: Post-op liver transplant, right lobe [...] MD IMG US ORDERABLES Final Result * ECHO COMPLETE (04/29/2025 10:17 AM EST) Anatomical Region Laterality Modality Chest Ultrasound 04/29/2025 9:47 AM EST Narrative 04/29/2025 2:07 PM EST * [facility]* [address] [place] [id number] Transthoracic Echocardiogram Patient: Mindy Wade Room: Height: 65in MR Number: [id number] : 1990 Weight: 157lb Account: [id number] Gender: F BP: Study Date: 04/29/2025 Age: 35 BSA: 1.78m^2 Referring physician: Interpreting physician: Chantelle Perez MD PERFORMING Chantelle Perez MD STAFFING AND SCHEDULING COORDINATOR Kalie Lopez Procedure: Order: Indications: Shortness of [...] 2.1 2.0 FS, LAX (H) 46 % 36 FS, LAX chord (H) 46 % 45 36 ESD major ax, 6.5 cm [...] 74 A4C SV/bsa, 2-p 24.4 ml/m^2 --------- E' lat alma, (N) 12.9 cm/sec >=10.0 13.5 [...] cm --------- Vol, S (N) 25 ml 22 52 Vol/bsa, S (L) 14 ml/m^2 Vol, ES, 1-p (N) 24 ml 52 A4C Vol/bsa, ES, (N) 14 ml/m^2 11 - 40 1-p A4C Vol, ES, 1-p (N) 25 ml 52 A2C Vol/bsa, ES, (N) 14 ml/m^2 13 - 40 1-p A2C Vol, ES, 2-p 25 ml --------- Vol/bsa, ES, (L) 14 ml/m^2 2-p Right atrium Value Ref 02/01/2025 Area, [...] Reviewed and confirmed by Chantelle Perez MD [id number] Procedure Note Chantelle Perez MD - 05/02/2025 * [facility]* [address] [place] [address] Transthoracic Echocardiogram Patient: Mindy Wade Room: Height: 65in MR Number: [id number] : 1990 Weight:157lb Account: [id number] Gender: F BP: Study Date: 04/29/2025 Age: 35 BSA:1.78m^2 Referring physician: Interpreting physician: Chantelle Perez MD PERFORMING Chantelle Perez MD STAFFING AND SCHEDULING COORDINATOR Kalie Lopez Procedure: Order: Indications: Shortness of [...] Reviewed and confirmed by Chantelle Perez MD [id number] us Jostin eHss MD CV ECHO ORDERABLES Fi nal Result [...] Pittman MD at 04/29/2025 7:21 AM EST us Gloria Chen MD IMG CT ORDERABLES Final Result * (ABNORMAL) Renal Function Panel w/EGFR (04/29/2025 5:25 AM EST) Sodium 135 133 - 146 mmol/L 04/29/2025 6:09 AM [facility] Potassium 4.1 3.5 - 5.3 mmol/L 04/29/2025 6:09 AM [facility] Chloride 108 98 - 110 mmol/L 04/29/2025 6:09 AM [facility] CO2 23 21 - 33 mmol/L 04/29/2025 6:09 AM [facility] Comment:High lactate dehydro genase concentrations in patient samples may cause falsely increased bicarbonate results. If markedly elevated LDH is observed or suspected, please assess results in conjunction with patient`s clinical presentation. In cases of discrepant results, consider evaluating CO2 in with a blood gas order. Anion Gap 4 3 - 16 mmol/L 04/29/2025 6:09 AM [facility] BUN 18 7 - 25 mg/dL 04/29/2025 6:09 AM [facility] Creatinine 0.75 0.60 - 1.30 mg/dL 04/29/2025 6:09 AM [facility] Glucose 95 70 - 100 mg/dL 04/29/2025 6:09 AM [facility] Calcium 7.7(L) 8.6 - 10.3 mg/dL 04/29/2025 6:09 AM [facility] Phosphorus 3.0 2.1 - 4.7 mg/dL 04/29/2025 6:09 AM [facility] Albumin 2.4(L) 3.5 - 5.7 g/dL 04/29/2025 6:09 AM [facility] Osmolality, Calculated 282 278 - 305 mOsm/kg 04/29/2025 6:09 AM [facility] EGFR >90 04/29/2025 6:09 AM [facility] Comment: As of 2021, the estimated [...] AM EST 04/29/2025 5:32 AM EST Raya Rodriguez MS LAB BLOOD ORDERABLES Final Re sult Performing Organization Address [facility] Co de Phone Number [facility] [address] [facility]. [address] * Magnesium (04/29/2025 5:25 AM EST) Magnesium 1.7 1.5 - 2.5 mg/dL 04/29/2025 6:09 AM EST [facility] Plasma 04/29/2025 5:25 AM EST 04/29/2025 5:32 AM EST [facility] LAB BLOOD ORDERABLES Final Re sult Performing Organization Address [facility] Co de Phone Number [facility] [address] [facility]. [address] * (ABNORMAL) Hepatic Function Panel (04/29/2025 5:25 AM EST) Total Bilirubin 3.1(H) 0.0 - 1.5 mg/dL 04/29/2025 6:09 AM EST [facility] Bilirubin, Direct 2.02(H) 0.00 - 0.40 mg/dL 04/29/2025 6:09 AM EST [facility] AST 62(H) 13 - 39 U/L 04/29/2025 6:09 AM EST [facility] ALT 94(H) 7 - 52 U/L 04/29/2025 6:09 AM EST [facility] Alkaline Phosphatase 452(H) 36 - 125 U/L 04/29/2025 6:09 AM EST [facility] Total Protein 4.0(L) 6.4 - 8.9 g/dL 04/29/2025 6:09 AM EST [facility] Albumin 2.4(L) 3.5 - 5.7 g/dL 04/29/2025 6:09 AM EST [facility] Bilirubin, Indirect 1.08 0.00 - 1.10 mg/dL 04/29/2025 6:09 AM [facility] Plasma 04/29/2025 5:25 AM EST 04/29/2025 5:32 AM EST us Raya CRUZ LAB BLOOD ORDERABLES Final Re sult [facility] [address] * (ABNORMAL) CBC (04/29/2025 5:25 AM EST) WBC 5.3 3.8 - 10.8 10E3/uL 04/29/2025 5:49 AM EST [facility] RBC 2.56(L) 3.80 - 5.10 10E6/uL 04/29/2025 5:49 AM EST [facility] Hemoglobin 7.9(L) 11.7 - 15.5 g/dL 04/29/2025 5:49 AM EST [facility] Hematocrit 23.3(L) 35.0 - 45.0 % 04/29/2025 5:49 AM EST [facility] MCV 90.8 80.0 - 100.0 fL 04/29/2025 5:49 AM EST [facility] MCH 30.9 27.0 - 33.0 pg 04/29/2025 5:49 AM EST [facility] MCHC 34.0 32.0 - 36.0 g/dL 04/29/2025 5:49 AM EST [facility] RDW 18.9(H) 11.0 - 15.0 % 04/29/2025 5:49 AM EST [facility] Platelets 92(L) 140 - 400 10E3/uL 04/29/2025 5:49 AM EST [facility] MPV 10.0 7.5 - 11.5 fL 04/29/2025 5:49 AM EST [facility] Whole Blood 04/29/2025 5:25 AM EST 04/29/2025 5:32 AM EST Raya CRUZ LAB BLOOD ORDERABLES Final Re sult [facility] [address] [facility]. [address] * (ABNORMAL) Tacrolimus level (04/29/2025 5:25 AM EST) Pathologist [facility] Tacrolimus (LC-MS) 16.8(H) 3.0 - 15.0 ng/mL 04/29/2025 10:35 AM EST [facility] Comment:Performed via liquid chromatography tandem mass spectrometry. Detection limit: 1 ng/mL. Individual target concentrations may vary due to target organ and time after transplant. This test has been developed and its performance characteristics determined by [facility] which is certified under [...] AM EST 04/29/2025 5:32 AM EST us Gloria Chen MD LAB BLOOD ORDERABLES Final Resul t [facility] [address] [facility]. [address] * POC Glucose Monitoring Device (04/29/2025 5:06 AM EST) POC Glucose Monitoring Device 97 70 - 100 mg/dL 04/29/2025 5:07 AM EST [facility] Blood 04/29/2025 5:06 AM EST 04/29/2025 5:07 AM EST us Ludin Jose MD POINT OF CARE TEST ORDERABLES Fi nal Result Performing Organization Address [facility] Co de Phone Number [address] * (ABNORMAL) POC Glucose Monitoring Device (04/28/2025 11:10 PM EST) POC Glucose Monitoring Device 131(H) 70 - 100 mg/dL 04/28/2025 11:11 PM EST [facility] Blood 04/28/2025 11:1 0 PM EST 04/28/2025 11:10 PM EST Ludin Jose MD POINT OF CARE TEST ORDERABLES Fi nal Result Performing Organization Address [facility] de Phone Number [address] * (ABNORMAL) POC Glucose Monitoring Device (04/28/2025 5:19 PM EST) POC Glucose Monitoring Device 137(H) 70 - 100 mg/dL 04/28/2025 5:20 PM EST [facility] Blood 04/28/2025 5:19 PM EST 04/28/2025 5:20 PM EST Ludin Jose MD POINT OF CARE TEST ORDERABLES Fi nal Result Performing Organization Address [facility] Co de Phone Number [address] * (ABNORMAL) POC Glucose Monitoring Device (04/28/2025 10:58 AM EST) POC Glucose Monitoring Device 132(H) 70 - 100 mg/dL 04/28/2025 10:59 AM EST [facility] Blood 04/28/2025 10:5 8 AM EST 04/28/2025 10:58 AM EST us Ludin Jose MD POINT OF CARE TEST ORDERABLES Fi nal Result [facility] [address] [facility]. [address] * (ABNORMAL) POC Glucose Monitoring Device (04/28/2025 6:43 AM EST) [facility] POC Glucose Monitoring Device 111(H) 70 - 100 mg/dL 04/28/2025 6:44 AM EST [facility] Blood 04/28/2025 6:43 AM EST 04/28/2025 6:44 AM EST us Ludin Jose MD POINT OF CARE TEST ORDERABLES Fi nal Result Performing Organization Address [facility] Co de Phone Number [facility] [address] [facility]. [address] * (ABNORMAL) Renal Function Panel w/EGFR (04/28/2025 6:37 AM EST) [facility] Sodium 136 133 - 146 mmol/L 04/28/2025 7:30 AM EST [facility] Potassium 3.7 3.5 - 5.3 mmol/L 04/28/2025 7:30 AM EST [facility] Chloride 106 98 - 110 mmol/L 04/28/2025 7:30 AM EST [facility] CO2 23 21 - 33 mmol/L 04/28/2025 7:30 AM EST [facility] Comment:High lactate dehydro genase concentrations in patient samples may cause falsely increased bicarbonate results. If markedly elevated LDH is observed or suspected, please assess results in conjunction with patient`s clinical presentation. In cases of discrepant results, consider evaluating CO2 in with a blood gas order. Anion Gap 7 3 - 16 mmol/L 04/28/2025 7:30 AM EST [facility] BUN 17 7 - 25 mg/dL 04/28/2025 7:30 AM EST [facility] Creatinine 0.68 0.60 - 1.30 mg/dL 04/28/2025 7:30 AM EST [facility] Glucose 105(H) 70 - 100 mg/dL 04/28/2025 7:30 AM EST [facility] Calcium 7.5(L) 8.6 - 10.3 mg/dL 04/28/2025 7:30 AM EST [facility] Phosphorus 2.4 2.1 - 4.7 mg/dL 04/28/2025 7:30 AM EST [facility] Albumin 2.2(L) 3.5 - 5.7 g/dL 04/28/2025 7:30 AM EST [facility] Osmolality, Calculated 284 278 - 305 mOsm/kg 04/28/2025 7:30 AM EST [facility] EGFR >90 04/28/2025 7:30 AM EST [facility] Comment: As of 2021, the [...] as >90mL/min/1.73m2. Reference: Usama C, Hernandez M, Chtao [place], Suzy [place], Jyoti [place], Nas [place], [...] CRUZ LAB BLOOD ORDERABLES Final Re sult [facility] [address] [place], [place] [address] * Magnesium (04/28/2025 6:37 AM EST) Magnesium 1.9 1.5 - 2.5 mg/dL 04/28/2025 7:30 AM EST [facility] Plasma 04/28/2025 6:37 AM EST 04/28/2025 6:52 AM EST Raya CRUZ LAB BLOOD ORDERABLES Final Re sult Performing Organization Address [facility] Co de Phone Number [facility] [address] [facility]. [address] * (ABNORMAL) Hepatic Function Panel (04/28/2025 6:37 AM EST) Total Bilirubin 3.4(H) 0.0 - 1.5 mg/dL 04/28/2025 7:30 AM EST [facility] Bilirubin, Direct 2.28(H) 0.00 - 0.40 mg/dL 04/28/2025 7:30 AM EST [facility] AST 66(H) 13 - 39 U/L 04/28/2025 7:30 AM EST [facility] ALT 104(H) 7 - 52 U/L 04/28/2025 7:30 AM EST [facility] Alkaline Phosphatase 397(H) 36 - 125 U/L 04/28/2025 7:30 AM EST [facility] Total Protein 3.9(L) 6.4 - 8.9 g/dL 04/28/2025 7:30 AM EST [facility] Albumin 2.2(L) 3.5 - 5.7 g/dL 04/28/2025 7:30 AM EST [facility] Bilirubin, Indirect 1.12(H) 0.00 - 1.10 mg/dL 04/28/2025 7:30 AM EST [facility] Plasma 04/28/2025 6:37 AM EST 04/28/2025 6:52 AM EST Raya CRUZ LAB BLOOD ORDERABLES Final Re sult Performing Organization Address City/[facility]/ZIP Co de Phone Number [facility] [address] [facility]. [address] * (ABNORMAL) CBC (04/28/2025 6:37 AM EST) WBC 6.2 3.8 - 10.8 10E3/uL 04/28/2025 8:10 AM EST [facility] RBC 2.69(L) 3.80 - 5.10 10E6/uL 04/28/2025 8:10 AM EST [facility] Hemoglobin 8.4(L) 11.7 - 15.5 g/dL 04/28/2025 8:10 AM EST [facility] Hematocrit 24.1(L) 35.0 - 45.0 % 04/28/2025 8:10 AM EST [facility] MCV 89.7 80.0 - 100.0 fL 04/28/2025 8:10 AM EST [facility] MCH 31.2 27.0 - 33.0 pg 04/28/2025 8:10 AM EST [facility] MCHC 34.8 32.0 - 36.0 g/dL 04/28/2025 8:10 AM EST [facility] RDW 17.7(H) 11.0 - 15.0 % 04/28/2025 8:10 AM EST [facility] Platelets 111(L) 140 - 400 10E3/uL 04/28/2025 8:10 AM [facility] Comment:Specimen checked for clots. None detected. MPV 10.0 7.5 - 11.5 fL 04/28/2025 8:10 AM [facility] Whole Blood 04/28/2025 6:37 AM EST 04/28/2025 6:52 AM EST Raya CRUZ LAB BLOOD ORDERABLES Final Re sult [facility] [address] * (ABNORMAL) Tacrolimus level (04/28/2025 6:37 AM EST) Pathologist [facility] Tacrolimus (LC-MS) 16.6(H) 3.0 - 15.0 ng/mL 04/28/2025 10:26 AM EST [facility] Comment:Performed via liquid chromatography tandem mass spectrometry. Detection limit: 1 ng/mL. Individual target concentrations may vary due to target organ and time after transplant. This test has been developed and its performance characteristics determined by [facility] which is certified under [...] ORDERABLES Final Resul t Performing Organization Address City/[facility]/ZIP Co de Phone Number [facility] [address] [place] [address]. [address] * (ABNORMAL) POC Glucose Monitoring Device (04/27/2025 11:04 PM EST) [facility] POC Glucose Monitoring Device 101(H) 70 - 100 mg/dL 04/27/2025 11:05 PM EST [facility] Blood 04/27/2025 11:0 4 PM EST 04/27/2025 11:05 PM EST Ludin Jose MD POINT OF CARE TEST ORDERABLES Fi nal Result Performing Organization Address [facility] de Phone Number [address] * CORNELIUS Rhythm Strip - Scan (04/27/2025 7:26 PM EST) Scanning [facility] SCAN DOCS - NO RESULTS Final Res ult * ECG 12-lead (MUSE) (04/27/2025 5:57 PM EST) 04/27/2025 5:57 PM EST Narrative MUSE - 04/28/2025 11:52 AM EST Ventricular Rate: 77 BPM Atrial Rate: 77 BPM P-R Interval: 102 ms QRS Duration: 90 ms QT: 420 ms QTc: 475 ms P Josephine: 7 degrees R Josephine: 16 degrees T Josephine: 29 degrees Diagnosis Line: SINUS RHYTHM WITH SHORT HI ^ OTHERWISE NORMAL ECG ^ ^ Confirmed by Anthony RAMOS MD ([id number]) on 04/28/2025 11:52:02 AM Raya CRUZ ECG ORDERABLES Final Result MUSE * (ABNORMAL) POC Glucose Monitoring Device (04/27/2025 5:55 PM EST) POC Glucose Monitoring Device 113(H) 70 - 100 mg/dL 04/27/2025 5:56 PM EST [facility] Blood 04/27/2025 5:55 PM EST 04/27/2025 5:56 PM EST Ludin Jose MD POINT OF CARE TEST ORDERABLES Fi nal Result Performing Organization Address [facility] Co de Phone Number [facility] [phone] [facility] [facility]. [address] * (ABNORMAL) Triglycerides (04/27/2025 11:36 AM EST) Triglycerides 247(H) 10 - 149 mg/dL 04/27/2025 1:31 PM EST [facility] Plasma 04/27/2025 11:3 6 AM EST 04/27/2025 12:05 PM EST Raya CRUZ LAB BLOOD ORDERABLES Final Re sult Performing Organization Address [facility] Co de Phone Number [facility] [address] [facility]. [address] * (ABNORMAL) POC Glucose Monitoring Device (04/27/2025 11:31 AM EST) POC Glucose Monitoring Device 134(H) 70 - 100 mg/dL 04/27/2025 11:32 AM EST [facility] Blood 04/27/2025 11:3 1 AM EST 04/27/2025 11:32 AM EST Ludin Jose MD POINT OF CARE TEST ORDERABLES Fi nal Result Performing Organization Address City/[facility]/ZIP Co de Phone Number [facility] [address] [facility]. [address] * X-ray Portable Abdomen AP view [...] - 100 mg/dL 04/27/2025 5:05 AM EST [facility] Blood 04/27/2025 5:03 AM EST 04/27/2025 5:05 AM EST us Ludin Jose MD POINT OF CARE TEST ORDERABLES Fi nal Result Performing Organization Address [facility] Co de Phone Number [facility] [address] [place] [address] * (ABNORMAL) POC Glucose Monitoring Device (04/27/2025 5:01 AM EST) POC Glucose Monitoring Device 316(H) 70 - 100 mg/dL 04/27/2025 5:03 AM EST [facility] Blood 04/27/2025 5:01 AM EST 04/27/2025 5:03 AM EST us Ludin Jose MD POINT OF CARE TEST ORDERABLES Fi nal Result Performing Organization Address [facility] de Phone Number [facility] [address] [facility]. [address] * (ABNORMAL) POC Glucose Monitoring Device (04/27/2025 5:00 AM EST) POC Glucose Monitoring Device 307(H) 70 - 100 mg/dL 04/27/2025 5:03 AM EST [facility] Blood 04/27/2025 5:00 AM EST 04/27/2025 5:03 AM EST us Ludin Jose MD POINT OF CARE TEST ORDERABLES Fi nal Result Performing Organization Address [facility] de Phone Number [facility] [address] [place] [address] * Tacrolimus level (04/27/2025 4:56 AM EST) Tacrolimus (LC-MS) 6.3 3.0 - 15.0 ng/mL 04/27/2025 10:58 AM EST [facility] Comment:Performed via liquid chromatography tandem mass spectrometry. Detection limit: 1 ng/mL. Individual target concentrations may vary due to target organ and time after transplant. This test has been developed and its performance characteristics determined by [facility] which is certified under [...] MD LAB BLOOD ORDERABLES Final Resul t [facility] [address] [place] [address], [facility] * (ABNORMAL) CBC (04/27/2025 4:56 AM EST) WBC 3.5(L) 3.8 - 10.8 10E3/uL 04/27/2025 5:52 AM EST [facility] RBC 2.41(L) 3.80 - 5.10 10E6/uL 04/27/2025 5:52 AM EST [facility] Hemoglobin 7.6(L) 11.7 - 15.5 g/dL 04/27/2025 5:52 AM [facility] Hematocrit 21.7(L) 35.0 - 45.0 % 04/27/2025 5:52 AM [facility] MCV 90.2 80.0 - 100.0 fL 04/27/2025 5:52 AM [facility] MCH 31.4 27.0 - 33.0 pg 04/27/2025 5:52 AM [facility] MCHC 34.8 32.0 - 36.0 g/dL 04/27/2025 5:52 AM [facility] RDW 18.3(H) 11.0 - 15.0 % 04/27/2025 5:52 AM [facility] Platelets 62(L) 140 - 400 10E3/uL 04/27/2025 5:52 AM [facility] MPV 10.2 7.5 - 11.5 fL 04/27/2025 5:52 AM EST [facility] Whole Blood 04/27/2025 4:56 AM EST 04/27/2025 5:42 AM EST Gloria Chen MD LAB BLOOD ORDERABLES Final Resul t Performing Organization Address [facility] de Phone Number [facility] [address] [facility]. [address] * Phosphorus (04/27/2025 3:01 AM EST) Phosphorus 2.4 2.1 - 4.7 mg/dL 04/27/2025 3:30 AM EST [facility] Plasma 04/27/2025 3:01 AM EST 04/27/2025 3:09 AM EST us Gloria Chen MD LAB BLOOD ORDERABLES Final Resul t Performing Organization Address [facility] de Phone Number [facility] [address] [facility]. [address] * Magnesium (04/27/2025 3:01 AM EST) Magnesium 1.7 1.5 - 2.5 mg/dL 04/27/2025 3:30 AM EST [facility] Plasma 04/27/2025 3:01 AM EST 04/27/2025 3:09 AM EST Gloria Chen MD LAB BLOOD ORDERABLES Final Resul t Performing Organization Address [facility] de Phone Number [facility] [address] [facility]. [address] * (ABNORMAL) Hepatic Function Panel (04/27/2025 3:01 AM EST) Total Bilirubin 4.0(H) 0.0 - 1.5 mg/dL 04/27/2025 3:30 AM EST [facility] Bilirubin, Direct 2.87(H) 0.00 - 0.40 mg/dL 04/27/2025 3:30 AM EST [facility] AST 74(H) 13 - 39 U/L 04/27/2025 3:30 AM EST [facility] ALT 104(H) 7 - 52 U/L 04/27/2025 3:30 AM EST [facility] Alkaline Phosphatase 342(H) 36 - 125 U/L 04/27/2025 3:30 AM EST [facility] Total Protein 3.7(L) 6.4 - 8.9 g/dL 04/27/2025 3:30 AM [facility] Albumin 2.1(L) 3.5 - 5.7 g/dL 04/27/2025 3:30 AM [facility] Bilirubin, Indirect 1.13(H) 0.00 - 1.10 mg/dL 04/27/2025 3:30 AM [facility] Plasma 04/27/2025 3:01 AM EST 04/27/2025 3:09 AM EST us Gloria Chen MD LAB BLOOD ORDERABLES Final Resul t [facility] [address] * (ABNORMAL) Basic metabolic panel (04/27/2025 3:01 AM EST) Sodium 138 133 - 146 mmol/L 04/27/2025 3:30 AM [facility] Potassium 4.2 3.5 - 5.3 mmol/L 04/27/2025 3:30 AM [facility] Chloride 112(H) 98 - 110 mmol/L 04/27/2025 3:30 AM [facility] CO2 24 21 - 33 mmol/L 04/27/2025 3:30 AM [facility] Comment:High lactate dehydro genase concentrations in patient samples may cause falsely increased bicarbonate results. If markedly elevated LDH is observed or suspected, please assess results in conjunction with patient`s clinical presentation. In cases of discrepant results, consider evaluating CO2 in with a blood gas order. Anion Gap 2(L) 3 - 16 mmol/L 04/27/2025 3:30 AM [facility] BUN 17 7 - 25 mg/dL 04/27/2025 3:30 AM [facility] Creatinine 0.57(L) 0.60 - 1.30 mg/dL 04/27/2025 3:30 AM [facility] Glucose 224(H) 70 - 100 mg/dL 04/27/2025 3:30 AM EST [facility] Calcium 7.0(L) 8.6 - 10.3 mg/dL 04/27/2025 3:30 AM EST [facility] Osmolality, Calculated 295 278 - 305 mOsm/kg 04/27/2025 3:30 AM EST [facility] EGFR >90 04/27/2025 3:30 AM EST [facility] Comment: As of 2021, the [...] MD LAB BLOOD ORDERABLES Final Resul t [facility] [address] [place] [address], [facility] * (ABNORMAL) CBC (04/26/2025 11:55 PM EST) WBC 3.4(L) 3.8 - 10.8 10E3/uL 04/27/2025 12:34 AM EST [facility] RBC 2.40(L) 3.80 - 5.10 10E6/uL 04/27/2025 12:34 AM EST [facility] Hemoglobin 7.3(L) 11.7 - 15.5 g/dL 04/27/2025 12:34 AM EST [facility] Hematocrit 22.5(L) 35.0 - 45.0 % 04/27/2025 12:34 AM EST [facility] MCV 93.8 80.0 - 100.0 fL 04/27/2025 12:34 AM EST [facility] MCH 30.6 27.0 - 33.0 pg 04/27/2025 12:34 AM EST [facility] MCHC 32.6 32.0 - 36.0 g/dL 04/27/2025 12:34 AM [facility] RDW 17.7(H) 11.0 - 15.0 % 04/27/2025 12:34 AM [facility] Platelets 61(L) 140 - 400 10E3/uL 04/27/2025 12:34 AM [facility] Comment:Specimen checked for clots. None detected. MPV 9.6 7.5 - 11.5 fL 04/27/2025 12:34 AM EST [facility] Whole Blood 04/26/2025 11:5 5 PM EST 04/27/2025 12:01 AM EST us Gloria Chen MD LAB BLOOD ORDERABLES Final Resul t [facility] [address] * POC Glucose Monitoring Device (04/26/2025 10:50 PM EST) [facility] POC Glucose Monitoring Device 82 70 - 100 mg/dL 04/26/2025 10:51 PM EST [facility] Blood 04/26/2025 10:5 0 PM EST 04/26/2025 10:51 PM EST us Ludin Jose MD POINT OF CARE TEST ORDERABLES Fi nal Result Performing Organization Address City/[facility]/ZIP Co de Phone Number [facility] [address] * Antibody Screen (04/26/2025 6:02 PM EST) Antibody Screen Negative 04/26/2025 6:50 PM EST [facility] Blood 04/26/2025 6:02 PM EST 04/26/2025 6:16 PM EST Narrative [facility] - 04/26/2025 6:52 PM EST Testing performed by [facility] Transfusion [facility] Gloria Chen MD BLOOD BANK TEST ORDERABLES Final Result [facility] [address] [facility]. [address] * ABO/Rh (04/26/2025 6:02 PM EST) Pathologist [facility] ABO Grouping O 04/26/2025 6:37 PM EST [facility] Rh Type Positive 04/26/2025 6:37 PM EST [facility] Blood 04/26/2025 6:02 PM EST 04/26/2025 6:16 PM EST Gloria Chen MD BLOOD BANK TEST ORDERABLES Final Result Performing Organization Address City/[facility] Co de Phone Number [facility] [address] [place] [address]. [address] * POC Glucose Monitoring Device (04/26/2025 6:00 PM EST) Pathologist [facility] POC Glucose Monitoring Device 82 70 - 100 mg/dL 04/26/2025 6:02 PM EST [facility] Blood 04/26/2025 6:00 PM EST 04/26/2025 6:02 PM EST Ludin Jose MD POINT OF CARE TEST ORDERABLES Fi nal Result Performing Organization Address City/[facility]/ZIP Co de Phone Number [facility] [address] [facility]. [address] * (ABNORMAL) CBC (04/26/2025 4:16 PM EST) Pathologist [facility] WBC 4.1 3.8 - 10.8 10E3/uL 04/26/2025 4:43 PM EST [facility] RBC 2.75(L) 3.80 - 5.10 10E6/uL 04/26/2025 4:43 PM EST [facility] Hemoglobin 8.5(L) 11.7 - 15.5 g/dL 04/26/2025 4:43 PM EST [facility] Hematocrit 24.6(L) 35.0 - 45.0 % 04/26/2025 4:43 PM EST [facility] MCV 89.4 80.0 - 100.0 fL 04/26/2025 4:43 PM EST [facility] MCH 31.0 27.0 - 33.0 pg 04/26/2025 4:43 PM EST [facility] MCHC 34.7 32.0 - 36.0 g/dL 04/26/2025 4:43 PM EST [facility] RDW 17.1(H) 11.0 - 15.0 % 04/26/2025 4:43 PM EST [facility] Platelets 76(L) 140 - 400 10E3/uL 04/26/2025 4:43 PM EST [facility] MPV 9.7 7.5 - 11.5 fL 04/26/2025 4:43 PM EST [facility] Whole Blood 04/26/2025 4:16 PM EST 04/26/2025 4:23 PM EST us Gloria Chen MD LAB BLOOD ORDERABLES Final Resul t [facility] [address] * Phosphorus (04/26/2025 4:16 PM EST) Phosphorus 3.0 2.1 - 4.7 mg/dL 04/26/2025 5:01 PM EST [facility] Plasma 04/26/2025 4:16 PM EST 04/26/2025 4:23 PM EST Gloria Chen MD LAB BLOOD ORDERABLES Final Resul t [facility] [address] * Magnesium (04/26/2025 4:16 PM EST) Magnesium 1.8 1.5 - 2.5 mg/dL 04/26/2025 5:01 PM EST [facility] Plasma 04/26/2025 4:16 PM EST 04/26/2025 4:23 PM EST us Gloria Chen MD LAB BLOOD ORDERABLES Final Resul t [facility] [address] * (ABNORMAL) Renal Function Panel w/EGFR (04/26/2025 4:16 PM EST) Sodium 143 133 - 146 mmol/L 04/26/2025 5:01 PM EST [facility] Potassium 4.0 3.5 - 5.3 mmol/L 04/26/2025 5:01 PM EST [facility] Chloride 113(H) 98 - 110 mmol/L 04/26/2025 5:01 PM EST [facility] CO2 23 21 - 33 mmol/L 04/26/2025 5:01 PM EST [facility] Comment:High lactate dehydro genase concentrations in patient samples may cause falsely increased bicarbonate results. If markedly elevated LDH is observed or suspected, please assess results in conjunction with patient`s clinical presentation. In cases of discrepant results, consider evaluating CO2 in with a blood gas order. Anion Gap 7 3 - 16 mmol/L 04/26/2025 5:01 PM EST [facility] BUN 21 7 - 25 mg/dL 04/26/2025 5:01 PM EST [facility] Creatinine 0.60 0.60 - 1.30 mg/dL 04/26/2025 5:01 PM EST [facility] Glucose 97 70 - 100 mg/dL 04/26/2025 5:01 PM EST [facility] Calcium 7.3(L) 8.6 - 10.3 mg/dL 04/26/2025 5:01 PM EST [facility] Phosphorus 3.0 2.1 - 4.7 mg/dL 04/26/2025 5:01 PM EST [facility] Albumin 2.3(L) 3.5 - 5.7 g/dL 04/26/2025 5:01 PM EST [facility] Osmolality, Calculated 299 278 - 305 mOsm/kg 04/26/2025 5:01 PM EST [facility] EGFR >90 04/26/2025 5:01 PM EST [facility] Comment: As of 2021, the [...] MD LAB BLOOD ORDERABLES Final Resul t [facility] [address] [place] [address], [facility] * (ABNORMAL) POC Glucose Monitoring Device (04/26/2025 12:50 PM EST) POC Glucose Monitoring Device 113(H) 70 - 100 mg/dL 04/26/2025 12:51 PM EST [facility] Blood 04/26/2025 12:5 0 PM EST 04/26/2025 12:50 PM EST us Ludin Jose MD POINT OF CARE TEST ORDERABLES Fi nal Result [facility] [address] [place] [address], [facility] * VAS Venous Duplex Upper Right (04/26/2025 [...] The results were read back and verified. Julius Becerra MD CV VASCULAR ORDERABLES Final [...] at 04/26/2025 8:59 AM EST Yane Wheatley [facility] IMG DIAGNOSTIC IMAGING OR DERABLES Final Result * (ABNORMAL) CBC (04/26/2025 7:47 AM EST) WBC 5.5 3.8 - 10.8 10E3/uL 04/26/2025 8:06 AM EST [facility] RBC 2.89(L) 3.80 - 5.10 10E6/uL 04/26/2025 8:06 AM EST [facility] Hemoglobin 8.9(L) 11.7 - 15.5 g/dL 04/26/2025 8:06 AM EST [facility] Hematocrit 25.8(L) 35.0 - 45.0 % 04/26/2025 8:06 AM EST [facility] MCV 89.3 80.0 - 100.0 fL 04/26/2025 8:06 AM EST [facility] MCH 30.9 27.0 - 33.0 pg 04/26/2025 8:06 AM EST [facility] MCHC 34.6 32.0 - 36.0 g/dL 04/26/2025 8:06 AM [facility] RDW 17.0(H) 11.0 - 15.0 % 04/26/2025 8:06 AM EST [facility] Platelets 70(L) 140 - 400 10E3/uL 04/26/2025 8:06 AM EST [facility] MPV 9.8 7.5 - 11.5 fL 04/26/2025 8:06 AM [facility] Whole Blood 04/26/2025 7:47 AM EST 04/26/2025 7:54 AM EST Gloria Chen MD LAB BLOOD ORDERABLES Final Resul t Performing Organization Address [facility] Co de Phone Number [facility] [address] [facility]. [address] * Tacrolimus level (04/26/2025 7:47 AM EST) Pathologist [facility] Tacrolimus (LC-MS) 7.1 3.0 - 15.0 ng/mL 04/26/2025 11:55 AM EST [facility] Comment:Performed via liquid chromatography tandem mass spectrometry. Detection limit: 1 ng/mL. Individual target concentrations may vary due to target organ and time after transplant. This test has been developed and its performance characteristics determined by [facility] which is certified under the Clinical Laboratory [...] 7:47 AM EST 04/26/2025 7:53 AM EST Gloria Chen MD LAB BLOOD ORDERABLES Final Resul t Performing Organization Address [facility] de Phone Number [facility] [address] [place] [address]. [address] * POC Glucose Monitoring Device (04/26/2025 7:44 AM EST) [facility] POC Glucose Monitoring Device 76 70 - 100 mg/dL 04/26/2025 7:45 AM EST [facility] Blood 04/26/2025 7:44 AM EST 04/26/2025 7:45 AM EST Ludin Jose MD POINT OF CARE TEST ORDERABLES Fi nal Result Performing Organization Address [facility] Co de Phone Number [facility] [address] [place] [address] * Magnesium (04/26/2025 6:09 AM EST) [facility] Magnesium 2.1 1.5 - 2.5 mg/dL 04/26/2025 7:01 AM EST [facility] Plasma 04/26/2025 6:09 AM EST 04/26/2025 6:18 AM EST us Gloria Chen MD LAB BLOOD ORDERABLES Final Resul t [facility] [address] [place] [address], [facility] * (ABNORMAL) Renal Function Panel w/EGFR (04/26/2025 6:09 AM EST) Sodium 142 133 - 146 mmol/L 04/26/2025 7:01 AM [facility] Potassium 4.0 3.5 - 5.3 mmol/L 04/26/2025 7:01 AM [facility] Chloride 114(H) 98 - 110 mmol/L 04/26/2025 7:01 AM [facility] CO2 22 21 - 33 mmol/L 04/26/2025 7:01 AM [facility] Comment:High lactate dehydro genase concentrations in patient samples may cause falsely increased bicarbonate results. If markedly elevated LDH is observed or suspected, please assess results in conjunction with patient`s clinical presentation. In cases of discrepant results, consider evaluating CO2 in with a blood gas order. Anion Gap 6 3 - 16 mmol/L 04/26/2025 7:01 AM [facility] BUN 23 7 - 25 mg/dL 04/26/2025 7:01 AM [facility] Creatinine 0.51(L) 0.60 - 1.30 mg/dL 04/26/2025 7:01 AM [facility] Glucose 75 70 - 100 mg/dL 04/26/2025 7:01 AM [facility] Calcium 7.3(L) 8.6 - 10.3 mg/dL 04/26/2025 7:01 AM [facility] Phosphorus 1.8(L) 2.1 - 4.7 mg/dL 04/26/2025 7:01 AM [facility] Albumin 2.3(L) 3.5 - 5.7 g/dL 04/26/2025 7:01 AM [facility] Osmolality, Calculated 296 278 - 305 mOsm/kg 04/26/2025 7:01 AM EST [facility] EGFR >90 04/26/2025 7:01 AM EST [facility] Comment: As of 2021, the [...] MD LAB BLOOD ORDERABLES Final Resul t [facility] [address] [place] [address], [facility] * (ABNORMAL) Hepatic Function Panel (04/26/2025 6:09 AM EST) Total Bilirubin 4.6(H) 0.0 - 1.5 mg/dL 04/26/2025 7:01 AM EST [facility] Bilirubin, Direct 3.20(H) 0.00 - 0.40 mg/dL 04/26/2025 7:01 AM EST [facility] AST 78(H) 13 - 39 U/L 04/26/2025 7:01 AM EST [facility] ALT 117(H) 7 - 52 U/L 04/26/2025 7:01 AM EST [facility] Alkaline Phosphatase 299(H) 36 - 125 U/L 04/26/2025 7:01 AM EST [facility] Total Protein 3.9(L) 6.4 - 8.9 g/dL 04/26/2025 7:01 AM EST [facility] Albumin 2.3(L) 3.5 - 5.7 g/dL 04/26/2025 7:01 AM EST [facility] Bilirubin, Indirect 1.40(H) 0.00 - 1.10 mg/dL 04/26/2025 7:01 AM EST [facility] Plasma 04/26/2025 6:09 AM EST 04/26/2025 6:18 AM EST us Gloria Chen MD LAB BLOOD ORDERABLES Final Resul t Performing Organization Address City/[facility]/ZIP Co de Phone Number [facility] [address] * POC Glucose Monitoring Device (04/26/2025 2:19 AM EST) POC Glucose Monitoring Device 85 70 - 100 mg/dL 04/26/2025 2:20 AM EST [facility] Blood 04/26/2025 2:19 AM EST 04/26/2025 2:20 AM EST us Ludin Jose MD POINT OF CARE TEST ORDERABLES Fi nal Result Performing Organization Address [facility]/ZIP Co de Phone Number [facility] [address] * Calcium Free, Serum (04/26/2025 12:27 AM EST) Free Calcium, Ser 4.46 4.40 - 5.40 mg/dL 04/26/2025 12:54 AM EST [facility] Comment:Free calcium levels vary inversely with pH by approximately 5% for each 0.1 unit of pH change. Assay results have been normalized to pH = 7.40. Serum 04/26/2025 12:2 7 AM EST 04/26/2025 12:36 AM EST Narrative [facility] - 04/26/2025 12:54 AM EST This test has been developed and its performance characteristics determined by [facility] which is certified under [...] ORDERABLES Final Resul t Performing Organization Address [facility] Co de Phone Number [address] * (ABNORMAL) POC Glucose Monitoring Device (04/26/2025 12:13 AM EST) POC Glucose Monitoring Device 60(L) 70 - 100 mg/dL 04/26/2025 12:14 AM EST [facility] Blood 04/26/2025 12:1 3 AM EST 04/26/2025 12:14 AM EST Ludin Jose MD POINT OF CARE TEST ORDERABLES Fi nal Result Performing Organization Address [facility] de Phone Number [address] * Magnesium (04/26/2025 12:12 AM EST) Magnesium 2.2 1.5 - 2.5 mg/dL 04/26/2025 1:04 AM EST [facility] Plasma 04/26/2025 12:1 2 AM EST 04/26/2025 12:20 AM EST Gloria Chen MD LAB BLOOD ORDERABLES Final Resul t Performing Organization Address [facility] de Phone Number [address] * (ABNORMAL) Renal Function Panel w/EGFR (04/26/2025 12:12 AM EST) Sodium 141 133 - 146 mmol/L 04/26/2025 1:04 AM [facility] Potassium 4.3 3.5 - 5.3 mmol/L 04/26/2025 1:04 AM [facility] Chloride 113(H) 98 - 110 mmol/L 04/26/2025 1:04 AM [facility] CO2 22 21 - 33 mmol/L 04/26/2025 1:04 AM [facility] Comment:High lactate dehydro genase concentrations in patient samples may cause falsely increased bicarbonate results. If markedly elevated LDH is observed or suspected, please assess results in conjunction with patient`s clinical presentation. In cases of discrepant results, consider evaluating CO2 in with a blood gas order. Anion Gap 6 3 - 16 mmol/L 04/26/2025 1:04 AM [facility] BUN 26(H) 7 - 25 mg/dL 04/26/2025 1:04 AM [facility] Creatinine 0.53(L) 0.60 - 1.30 mg/dL 04/26/2025 1:04 AM [facility] Glucose 60(L) 70 - 100 mg/dL 04/26/2025 1:04 AM [facility] Calcium 7.5(L) 8.6 - 10.3 mg/dL 04/26/2025 1:04 AM [facility] Phosphorus 2.6 2.1 - 4.7 mg/dL 04/26/2025 1:04 AM [facility] Albumin 2.3(L) 3.5 - 5.7 g/dL 04/26/2025 1:04 AM [facility] Osmolality, Calculated 295 278 - 305 mOsm/kg 04/26/2025 1:04 AM [facility] EGFR >90 04/26/2025 1:04 AM [facility] Comment: As of 2021, the estimated [...] Usama Ruiz, Hernandez M, Chato DC, Suzy NEELY, Jyoti GARDUNO, Nas [place], et al. A [...] MD LAB BLOOD ORDERABLES Final Resul t [facility] [address] [place] [address], [facility] * (ABNORMAL) CBC (04/25/2025 9:01 PM EST) WBC 5.2 3.8 - 10.8 10E3/uL 04/25/2025 9:24 PM EST [facility] RBC 2.69(L) 3.80 - 5.10 10E6/uL 04/25/2025 9:24 PM EST [facility] Hemoglobin 8.3(L) 11.7 - 15.5 g/dL 04/25/2025 9:24 PM EST [facility] Hematocrit 24.0(L) 35.0 - 45.0 % 04/25/2025 9:24 PM EST [facility] MCV 89.5 80.0 - 100.0 fL 04/25/2025 9:24 PM EST [facility] MCH 30.8 27.0 - 33.0 pg 04/25/2025 9:24 PM EST [facility] MCHC 34.4 32.0 - 36.0 g/dL 04/25/2025 9:24 PM EST [facility] RDW 16.6(H) 11.0 - 15.0 % 04/25/2025 9:24 PM EST [facility] Platelets 59(L) 140 - 400 10E3/uL 04/25/2025 9:24 PM EST [facility] MPV 9.4 7.5 - 11.5 fL 04/25/2025 9:24 PM EST [facility] Whole Blood 04/25/2025 9:01 PM EST 04/25/2025 9:16 PM EST Gloria Chen MD LAB BLOOD ORDERABLES Final Resul t [facility] [address] * Magnesium (04/25/2025 5:40 PM EST) Magnesium 2.2 1.5 - 2.5 mg/dL 04/25/2025 6:17 PM EST [facility] Plasma 04/25/2025 5:40 PM EST 04/25/2025 5:48 PM EST Gloria Chen MD LAB BLOOD ORDERABLES Final Resul t Performing Organization Address City/[facility] Co de Phone Number [facility] [address] * (ABNORMAL) Renal Function Panel w/EGFR (04/25/2025 5:40 PM EST) Sodium 143 133 - 146 mmol/L 04/25/2025 6:17 PM EST [facility] Potassium 4.4 3.5 - 5.3 mmol/L 04/25/2025 6:17 PM EST [facility] Chloride 113(H) 98 - 110 mmol/L 04/25/2025 6:17 PM EST [facility] CO2 22 21 - 33 mmol/L 04/25/2025 6:17 PM EST [facility] Comment:High lactate dehydro genase concentrations in patient samples may cause falsely increased bicarbonate results. If markedly elevated LDH is observed or suspected, please assess results in conjunction with patient`s clinical presentation. In cases of discrepant results, consider evaluating CO2 in with a blood gas order. Anion Gap 8 3 - 16 mmol/L 04/25/2025 6:17 PM EST [facility] BUN 29(H) 7 - 25 mg/dL 04/25/2025 6:17 PM EST [facility] Creatinine 0.59(L) 0.60 - 1.30 mg/dL 04/25/2025 6:17 PM EST [facility] Glucose 61(L) 70 - 100 mg/dL 04/25/2025 6:17 PM EST [facility] Calcium 6.9(L) 8.6 - 10.3 mg/dL 04/25/2025 6:17 PM EST [facility] Phosphorus 2.7 2.1 - 4.7 mg/dL 04/25/2025 6:17 PM EST [facility] Albumin 2.3(L) 3.5 - 5.7 g/dL 04/25/2025 6:17 PM EST [facility] Osmolality, Calculated 300 278 - 305 mOsm/kg 04/25/2025 6:17 PM EST [facility] EGFR >90 04/25/2025 6:17 PM EST [facility] Comment: As of 2021, the [...] 5:40 PM EST 04/25/2025 5:48 PM EST us Gloria Chen MD LAB BLOOD ORDERABLES Final Resul t [facility] [address] [place] [address], [facility] * Magnesium (04/25/2025 11:34 AM EST) Magnesium 2.3 1.5 - 2.5 mg/dL 04/25/2025 12:25 PM EST [facility] Plasma 04/25/2025 11:3 4 AM EST 04/25/2025 11:49 AM EST us Gloria Chen MD LAB BLOOD ORDERABLES Final Resul t [facility] [address] * (ABNORMAL) Renal Function Panel w/EGFR (04/25/2025 11:34 AM EST) Sodium 143 133 - 146 mmol/L 04/25/2025 12:25 PM EST [facility] Potassium 4.4 3.5 - 5.3 mmol/L 04/25/2025 12:25 PM EST [facility] Chloride 114(H) 98 - 110 mmol/L 04/25/2025 12:25 PM EST [facility] CO2 21 21 - 33 mmol/L 04/25/2025 12:25 PM EST [facility] Comment:High lactate dehydro genase concentrations in patient samples may cause falsely increased bicarbonate results. If markedly elevated LDH is observed or suspected, please assess results in conjunction with patient`s clinical presentation. In cases of discrepant results, consider evaluating CO2 in with a blood gas order. Anion Gap 8 3 - 16 mmol/L 04/25/2025 12:25 PM EST [facility] BUN 31(H) 7 - 25 mg/dL 04/25/2025 12:25 PM EST [facility] Creatinine 0.66 0.60 - 1.30 mg/dL 04/25/2025 12:25 PM EST [facility] Glucose 74 70 - 100 mg/dL 04/25/2025 12:25 PM EST [facility] Calcium 7.1(L) 8.6 - 10.3 mg/dL 04/25/2025 12:25 PM EST [facility] Phosphorus 2.0(L) 2.1 - 4.7 mg/dL 04/25/2025 12:25 PM EST [facility] Albumin 2.3(L) 3.5 - 5.7 g/dL 04/25/2025 12:25 PM EST [facility] Osmolality, Calculated 301 278 - 305 mOsm/kg 04/25/2025 12:25 PM EST [facility] EGFR >90 04/25/2025 12:25 PM EST [facility] Comment: As of 2021, the [...] ORDERABLES Final Resul t Performing Organization Address City/State/[facility] Co de Phone Number [facility] [address] [id number] * US Duplex [id number] Comp (04/25/2025 10:36 AM EST) Anatomical Region [...] EXAM: US ABDOMEN LIMITED EXAM: US DUPLEX [id number] COMPLETE INDICATION: Liver Transplant DATE: 04/25/2025 9:37 [...] EXAM: US ABDOMEN LIMITED EXAM: US DUPLEX [id number] COMPLETE INDICATION: Liver Transplant DATE: 04/25/2025 9:37 [...] 11:02 AM EST us Talita Pena [place] [facility] Final Resul t * US [...] EXAM: US ABDOMEN LIMITED EXAM: US DUPLEX [id number] COMPLETE INDICATION: Liver Transplant DATE: 04/25/2025 9:37 [...] EXAM: US ABDOMEN LIMITED EXAM: US DUPLEX [id number] COMPLETE INDICATION: Liver Transplant DATE: 04/25/2025 9:37 [...] 11:02 AM EST us Talita Pena MD [facility] ORDERABLES Final Resul t * (ABNORMAL) CBC (04/25/2025 8:13 AM EST) WBC 5.3 3.8 - 10.8 10E3/uL 04/25/2025 9:29 AM EST [facility] RBC 2.77(L) 3.80 - 5.10 10E6/uL 04/25/2025 9:29 AM EST [facility] Hemoglobin 8.5(L) 11.7 - 15.5 g/dL 04/25/2025 9:29 AM EST [facility] Hematocrit 24.6(L) 35.0 - 45.0 % 04/25/2025 9:29 AM EST [facility] MCV 88.7 80.0 - 100.0 fL 04/25/2025 9:29 AM EST [facility] MCH 30.6 27.0 - 33.0 pg 04/25/2025 9:29 AM EST [facility] MCHC 34.5 32.0 - 36.0 g/dL 04/25/2025 9:29 AM EST [facility] RDW 17.2(H) 11.0 - 15.0 % 04/25/2025 9:29 AM EST [facility] Platelets 44(L) 140 - 400 10E3/uL 04/25/2025 9:29 AM EST [facility] Comment:CNV MPV 10.2 7.5 - 11.5 fL 04/25/2025 9:29 AM EST [facility] Whole Blood 04/25/2025 8:13 AM EST 04/25/2025 8:25 AM EST Gloria Chen MD LAB BLOOD ORDERABLES Final Resul t Performing Organization Address [facility] Co de Phone Number [facility] [address] [facility]. [address] * Lactic acid, ABG (04/25/2025 8:13 AM EST) Lactate, Art 0.6 0.5 - 1.6 mmol/L 04/25/2025 3:13 PM EST [facility] Blood, Arterial 04/25/2025 8 :13 AM EST 04/25/2025 3:11 PM EST us Lynn Gage DO LAB BLOOD ORDERABLES Final Resul t Performing Organization Address [facility] de Phone Number [facility] [address] [facility]. [address] * Calcium Ionized, Whole Blood (04/25/2025 8:13 AM EST) Free Calcium, WB 4.69 4.50 - 5.30 mg/dL 04/25/2025 3:13 PM EST [facility] Blood, Arterial 04/25/2025 8 :13 AM EST 04/25/2025 3:11 PM EST Lynn Gage DO LAB BLOOD ORDERABLES Final Resul t Performing Organization Address [facility] Co de Phone Number [facility] [address] [facility]. [address] * (ABNORMAL) Blood gas, arterial (04/25/2025 8:13 AM EST) O2 Sat, Arterial 100 04/25/2025 8:21 AM EST [facility] FIO2 1L 04/25/2025 8:21 AM EST [facility] pH, Arterial 7.39 7.35 - 7.45 04/25/2025 8:21 AM EST [facility] pCO2, Arterial 38 35 - 45 mm Hg 04/25/2025 8:21 AM EST [facility] pO2, Arterial 133(H) 80 - 100 mm Hg 04/25/2025 8:21 AM EST [facility] HCO3, Arterial 24 22 - 26 mmol/L 04/25/2025 8:21 AM EST [facility] CO2 Content,Arteri al 24 23 - 27 mmol/L 04/25/2025 8:21 AM EST [facility] Base Excess, Arterial -1.8 -2.0 - 3.0 mmol/L 04/25/2025 8:21 AM EST [facility] %HBO2, Arterial 96.5 95.0 - 98.0 % 04/25/2025 8:21 AM EST [facility] Carboxyhemoglo bin, Arterial 2.4 % 04/25/2025 8:21 AM EST [facility] Comment: CARBOXYHEMOGLOBIN (CO) REFERENCE RANGES: Non-Smokers: <2 % Smokers: <8 % TOXIC: >20 % Methemoglobin, Arterial 1.1 0.0 - 1.5 % 04/25/2025 8:21 AM EST [facility] Blood, Arterial 04/25/2025 8 :13 AM EST 04/25/2025 8:18 AM EST us Lynn Gage DO LAB BLOOD ORDERABLES Final Resul t [facility] [address] [place] [address], [facility] * Tacrolimus level (04/25/2025 8:13 AM EST) Tacrolimus (LC-MS) 6.0 3.0 - 15.0 ng/mL 04/25/2025 1:48 PM EST [facility] Comment:Performed via liquid chromatography tandem mass spectrometry. Detection limit: 1 ng/mL. Individual target concentrations may vary due to target organ and time after transplant. This test has been developed and its performance characteristics determined by [facility] which is certified under [...] MD LAB BLOOD ORDERABLES Final Resul t [facility] [address] * Magnesium (04/25/2025 5:18 AM EST) Magnesium 2.4 1.5 - 2.5 mg/dL 04/25/2025 5:43 AM EST [facility] Plasma 04/25/2025 5:18 AM EST 04/25/2025 5:22 AM EST us Gloria Chen MD LAB BLOOD ORDERABLES Final Resul t Performing Organization Address City/[facility] Co de Phone Number [facility] [address] [facility]. [address] * (ABNORMAL) Renal Function Panel w/EGFR (04/25/2025 5:18 AM EST) Sodium 142 133 - 146 mmol/L 04/25/2025 5:43 AM EST [facility] Potassium 4.2 3.5 - 5.3 mmol/L 04/25/2025 5:43 AM EST [facility] Chloride 113(H) 98 - 110 mmol/L 04/25/2025 5:43 AM EST [facility] CO2 26 21 - 33 mmol/L 04/25/2025 5:43 AM EST [facility] Comment:High lactate dehydro genase concentrations in patient samples may cause falsely increased bicarbonate results. If markedly elevated LDH is observed or suspected, please assess results in conjunction with patient`s clinical presentation. In cases of discrepant results, consider evaluating CO2 in with a blood gas order. Anion Gap 3 3 - 16 mmol/L 04/25/2025 5:43 AM EST [facility] BUN 35(H) 7 - 25 mg/dL 04/25/2025 5:43 AM EST [facility] Creatinine 0.80 0.60 - 1.30 mg/dL 04/25/2025 5:43 AM EST [facility] Glucose 73 70 - 100 mg/dL 04/25/2025 5:43 AM EST [facility] Calcium 7.0(L) 8.6 - 10.3 mg/dL 04/25/2025 5:43 AM EST [facility] Phosphorus 2.8 2.1 - 4.7 mg/dL 04/25/2025 5:43 AM EST [facility] Albumin 2.3(L) 3.5 - 5.7 g/dL 04/25/2025 5:43 AM EST [facility] Osmolality, Calculated 301 278 - 305 mOsm/kg 04/25/2025 5:43 AM EST [facility] EGFR >90 04/25/2025 5:43 AM EST [facility] Comment: As of 2021, the [...] MD LAB BLOOD ORDERABLES Final Resul t [facility] [address] [place] [address], [facility] * (ABNORMAL) CBC (04/25/2025 5:18 AM EST) WBC 4.9 3.8 - 10.8 10E3/uL 04/25/2025 5:45 AM EST [facility] RBC 2.68(L) 3.80 - 5.10 10E6/uL 04/25/2025 5:45 AM EST [facility] Hemoglobin 8.1(L) 11.7 - 15.5 g/dL 04/25/2025 5:45 AM EST [facility] Hematocrit 23.6(L) 35.0 - 45.0 % 04/25/2025 5:45 AM EST [facility] MCV 88.2 80.0 - 100.0 fL 04/25/2025 5:45 AM EST [facility] MCH 30.2 27.0 - 33.0 pg 04/25/2025 5:45 AM EST [facility] MCHC 34.2 32.0 - 36.0 g/dL 04/25/2025 5:45 AM EST [facility] RDW 16.8(H) 11.0 - 15.0 % 04/25/2025 5:45 AM EST [facility] Platelets 42(L) 140 - 400 10E3/uL 04/25/2025 5:45 AM EST [facility] Comment: CNV Specimen checked for clots. None detected. MPV 9.1 7.5 - 11.5 fL 04/25/2025 5:45 AM EST [facility] Whole Blood 04/25/2025 5:18 AM EST 04/25/2025 5:22 AM EST Julius Becerra MD LAB BLOOD ORDERABLES Final Resul t [facility] [address] * (ABNORMAL) Hepatic Function Panel (04/25/2025 5:18 AM EST) Total Bilirubin 4.6(H) 0.0 - 1.5 mg/dL 04/25/2025 5:43 AM EST [facility] Bilirubin, Direct 3.53(H) 0.00 - 0.40 mg/dL 04/25/2025 5:43 AM EST [facility] AST 100(H) 13 - 39 U/L 04/25/2025 5:43 AM EST [facility] ALT 128(H) 7 - 52 U/L 04/25/2025 5:43 AM EST [facility] Alkaline Phosphatase 182(H) 36 - 125 U/L 04/25/2025 5:43 AM EST [facility] Total Protein 3.8(L) 6.4 - 8.9 g/dL 04/25/2025 5:43 AM EST [facility] Albumin 2.3(L) 3.5 - 5.7 g/dL 04/25/2025 5:43 AM EST [facility] Bilirubin, Indirect 1.07 0.00 - 1.10 mg/dL 04/25/2025 5:43 AM EST [facility] Plasma 04/25/2025 5:18 AM EST 04/25/2025 5:22 AM EST us Gloria Chen MD LAB BLOOD ORDERABLES Final Resul t Performing Organization Address City/[facility] Co de Phone Number [facility] [address] * Protime-INR, STAT (04/25/2025 5:18 AM EST) Protime 14.3 12.1 - 15.1 seconds 04/25/2025 5:40 AM EST [facility] INR 1.1 0.9 - 1.1 04/25/2025 5:40 AM EST [facility] Comment: RECOMMENDED THERAPEUTIC RANGES USING INR : Stable oral anticoagulant therapy: 2.0 - 3.0 Mechanical prosthetic heart valve: 2.5 - 3.5 Recurrent acute myocardial infarction: 2.5 - 3.5 Plasma 04/25/2025 5:18 AM EST 04/25/2025 5:22 AM EST us Lynn Gage DO LAB BLOOD ORDERABLES Final Resul t Performing Organization Address City/[facility] Co de Phone Number [facility] [address] * POC Glucose Monitoring Device (04/25/2025 5:17 AM EST) [facility] POC Glucose Monitoring Device 74 70 - 100 mg/dL 04/25/2025 5:19 AM EST [facility] Blood 04/25/2025 5:17 AM EST 04/25/2025 5:19 AM EST Ludin Jose MD POINT OF CARE TEST ORDERABLES Fi nal Result [facility] [address] * Magnesium (04/25/2025 12:05 AM EST) [facility] Magnesium 2.5 1.5 - 2.5 mg/dL 04/25/2025 1:02 AM EST [facility] Plasma 04/25/2025 12:0 5 AM EST 04/25/2025 12:09 AM EST Gloria Chen MD LAB BLOOD ORDERABLES Final Resul t Performing Organization Address City/[facility]/ZIP Co de Phone Number [facility] [address] [facility]. [address] * (ABNORMAL) Renal Function Panel w/EGFR (04/25/2025 12:05 AM EST) [facility] Sodium 142 133 - 146 mmol/L 04/25/2025 1:02 AM [facility] Potassium 4.5 3.5 - 5.3 mmol/L 04/25/2025 1:02 AM [facility] Chloride 112(H) 98 - 110 mmol/L 04/25/2025 1:02 AM [facility] CO2 25 21 - 33 mmol/L 04/25/2025 1:02 AM [facility] Comment:High lactate dehydro genase concentrations in patient samples may cause falsely increased bicarbonate results. If markedly elevated LDH is observed or suspected, please assess results in conjunction with patient`s clinical presentation. In cases of discrepant results, consider evaluating CO2 in with a blood gas order. Anion Gap 5 3 - 16 mmol/L 04/25/2025 1:02 AM EST [facility] BUN 34(H) 7 - 25 mg/dL 04/25/2025 1:02 AM EST [facility] Creatinine 0.85 0.60 - 1.30 mg/dL 04/25/2025 1:02 AM EST [facility] Glucose 74 70 - 100 mg/dL 04/25/2025 1:02 AM EST [facility] Calcium 7.3(L) 8.6 - 10.3 mg/dL 04/25/2025 1:02 AM EST [facility] Phosphorus 3.3 2.1 - 4.7 mg/dL 04/25/2025 1:02 AM EST [facility] Albumin 2.3(L) 3.5 - 5.7 g/dL 04/25/2025 1:02 AM EST [facility] Osmolality, Calculated 300 278 - 305 mOsm/kg 04/25/2025 1:02 AM EST [facility] EGFR >90 04/25/2025 1:02 AM EST [facility] Comment: As of 2021, the [...] MD LAB BLOOD ORDERABLES Final Resul t [facility] [address] * (ABNORMAL) CBC (04/25/2025 12:05 AM EST) WBC 6.1 3.8 - 10.8 10E3/uL 04/25/2025 12:38 AM EST [facility] RBC 2.79(L) 3.80 - 5.10 10E6/uL 04/25/2025 12:38 AM EST [facility] Hemoglobin 8.4(L) 11.7 - 15.5 g/dL 04/25/2025 12:38 AM [facility] Hematocrit 24.5(L) 35.0 - 45.0 % 04/25/2025 12:38 AM EST [facility] MCV 87.8 80.0 - 100.0 fL 04/25/2025 12:38 AM [facility] MCH 30.2 27.0 - 33.0 pg 04/25/2025 12:38 AM EST [facility] MCHC 34.4 32.0 - 36.0 g/dL 04/25/2025 12:38 AM [facility] RDW 16.9(H) 11.0 - 15.0 % 04/25/2025 12:38 AM [facility] Platelets 43(L) 140 - 400 10E3/uL 04/25/2025 12:38 AM [facility] Comment: CNV Specimen checked for clots. None detected. MPV 9.6 7.5 - 11.5 fL 04/25/2025 12:38 AM EST [facility] Whole Blood 04/25/2025 12:0 5 AM EST 04/25/2025 12:09 AM EST us Julius Becerra MD LAB BLOOD ORDERABLES Final Resul t [facility] [address]ardo Marie[address] [place]. [address] * POC Glucose Monitoring Device (04/25/2025 12:04 AM EST) POC Glucose Monitoring Device 79 70 - 100 mg/dL 04/25/2025 12:05 AM [facility] Blood 04/25/2025 12:0 4 AM EST 04/25/2025 12:05 AM EST Ludin Jose MD POINT OF CARE TEST ORDERABLES Fi nal Result [facility] [address] * Magnesium (04/24/2025 6:40 PM EST) Magnesium 2.4 1.5 - 2.5 mg/dL 04/24/2025 7:19 PM EST [facility] Plasma 04/24/2025 6:40 PM EST 04/24/2025 6:44 PM EST us Gloria Chen MD LAB BLOOD ORDERABLES Final Resul t Performing Organization Address [facility] Co de Phone Number [facility] [address] [facility]. [address] * (ABNORMAL) Renal Function Panel w/EGFR (04/24/2025 6:40 PM EST) Sodium 141 133 - 146 mmol/L 04/24/2025 7:19 PM EST [facility] Potassium 4.6 3.5 - 5.3 mmol/L 04/24/2025 7:19 PM EST [facility] Chloride 112(H) 98 - 110 mmol/L 04/24/2025 7:19 PM EST [facility] CO2 24 21 - 33 mmol/L 04/24/2025 7:19 PM EST [facility] Comment:High lactate dehydro genase concentrations in patient samples may cause falsely increased bicarbonate results. If markedly elevated LDH is observed or suspected, please assess results in conjunction with patient`s clinical presentation. In cases of discrepant results, consider evaluating CO2 in with a blood gas order. Anion Gap 5 3 - 16 mmol/L 04/24/2025 7:19 PM [facility] BUN 33(H) 7 - 25 mg/dL 04/24/2025 7:19 PM EST [facility] Creatinine 0.93 0.60 - 1.30 mg/dL 04/24/2025 7:19 PM [facility] Glucose 100 70 - 100 mg/dL 04/24/2025 7:19 PM EST [facility] Calcium 7.3(L) 8.6 - 10.3 mg/dL 04/24/2025 7:19 PM EST [facility] Phosphorus 3.5 2.1 - 4.7 mg/dL 04/24/2025 7:19 PM EST [facility] Albumin 2.4(L) 3.5 - 5.7 g/dL 04/24/2025 7:19 PM EST [facility] Osmolality, Calculated 299 278 - 305 mOsm/kg 04/24/2025 7:19 PM EST [facility] EGFR 82 04/24/2025 7:19 PM EST [facility] Comment:As of 2021, the estimated [...] MD LAB BLOOD ORDERABLES Final Resul t [facility] [address] [place] [address], [facility] * (ABNORMAL) CBC (04/24/2025 6:40 PM EST) WBC 7.2 3.8 - 10.8 10E3/uL 04/24/2025 7:14 PM EST [facility] RBC 2.91(L) 3.80 - 5.10 10E6/uL 04/24/2025 7:14 PM EST [facility] Hemoglobin 8.9(L) 11.7 - 15.5 g/dL 04/24/2025 7:14 PM EST [facility] Hematocrit 25.4(L) 35.0 - 45.0 % 04/24/2025 7:14 PM EST [facility] MCV 87.2 80.0 - 100.0 fL 04/24/2025 7:14 PM EST [facility] MCH 30.5 27.0 - 33.0 pg 04/24/2025 7:14 PM EST [facility] MCHC 35.0 32.0 - 36.0 g/dL 04/24/2025 7:14 PM EST [facility] RDW 17.2(H) 11.0 - 15.0 % 04/24/2025 7:14 PM EST [facility] Platelets 47(L) 140 - 400 10E3/uL 04/24/2025 7:14 PM EST [facility] Comment:CNV MPV 10.1 7.5 - 11.5 fL 04/24/2025 7:14 PM EST [facility] Whole Blood 04/24/2025 6:40 PM EST 04/24/2025 6:44 PM EST us Julius Becerra MD LAB BLOOD ORDERABLES Final Resul t [facility] [address] * POC Glucose Monitoring Device (04/24/2025 6:38 PM EST) [facility] POC Glucose Monitoring Device 97 70 - 100 mg/dL 04/24/2025 6:38 PM EST [facility] Blood 04/24/2025 6:38 PM EST 04/24/2025 6:38 PM EST us Ludin Jose MD POINT OF CARE TEST ORDERABLES Fi nal Result Performing Organization Address City/[facility] Co de Phone Number [facility] [address] * (ABNORMAL) Blood Gas, Arterial, STAT (04/24/2025 12:29 PM EST) O2 Sat, Arterial 99 04/24/2025 12:36 PM EST [facility] FIO2 3L 04/24/2025 12:36 PM EST [facility] pH, Arterial 7.37 7.35 - 7.45 04/24/2025 12:36 PM EST [facility] pCO2, Arterial 39 35 - 45 mm Hg 04/24/2025 12:36 PM EST [facility] pO2, Arterial 109(H) 80 - 100 mm Hg 04/24/2025 12:36 PM EST [facility] HCO3, Arterial 23 22 - 26 mmol/L 04/24/2025 12:36 PM EST [facility] CO2 Content,Arteri al 24 23 - 27 mmol/L 04/24/2025 12:36 PM EST [facility] Base Excess, Arterial -2.5(L) -2.0 - 3.0 mmol/L 04/24/2025 12:36 PM EST [facility] %HBO2, Arterial 97.1 95.0 - 98.0 % 04/24/2025 12:36 PM EST [facility] Carboxyhemoglo bin, Arterial 1.5 % 04/24/2025 12:36 PM EST [facility] Comment: CARBOXYHEMOGLOBIN (CO) REFERENCE RANGES: Non-Smokers: <2 % Smokers: <8 % TOXIC: >20 % Methemoglobin, Arterial 0.0 0.0 - 1.5 % 04/24/2025 12:36 PM EST [facility] Blood, Arterial 04/24/2025 1 2:29 PM EST 04/24/2025 12:33 PM EST us Judith Murcia MD LAB BLOOD ORDERABLES Final Res ult [facility] [address] [id number], [facility] * Magnesium (04/24/2025 12:29 PM EST) Magnesium 2.4 1.5 - 2.5 mg/dL 04/24/2025 1:30 PM EST [facility] Plasma 04/24/2025 12:2 9 PM EST 04/24/2025 12:55 PM EST us Gloria Chen MD LAB BLOOD ORDERABLES Final Resul t [facility] [address] [place] [address], [facility] * (ABNORMAL) Renal Function Panel w/EGFR (04/24/2025 12:29 PM EST) Sodium 140 133 - 146 mmol/L 04/24/2025 1:30 PM EST [facility] Potassium 4.6 3.5 - 5.3 mmol/L 04/24/2025 1:30 PM EST [facility] Chloride 110 98 - 110 mmol/L 04/24/2025 1:30 PM EST [facility] CO2 24 21 - 33 mmol/L 04/24/2025 1:30 PM EST [facility] Comment:High lactate dehydro genase concentrations in patient samples may cause falsely increased bicarbonate results. If markedly elevated LDH is observed or suspected, please assess results in conjunction with patient`s clinical presentation. In cases of discrepant results, consider evaluating CO2 in with a blood gas order. Anion Gap 6 3 - 16 mmol/L 04/24/2025 1:30 PM EST [facility] BUN 38(H) 7 - 25 mg/dL 04/24/2025 1:30 PM EST [facility] Creatinine 1.21 0.60 - 1.30 mg/dL 04/24/2025 1:30 PM EST [facility] Glucose 117(H) 70 - 100 mg/dL 04/24/2025 1:30 PM EST [facility] Calcium 7.3(L) 8.6 - 10.3 mg/dL 04/24/2025 1:30 PM EST [facility] Phosphorus 4.0 2.1 - 4.7 mg/dL 04/24/2025 1:30 PM EST [facility] Albumin 2.4(L) 3.5 - 5.7 g/dL 04/24/2025 1:30 PM EST [facility] Osmolality, Calculated 300 278 - 305 mOsm/kg 04/24/2025 1:30 PM EST [facility] EGFR 60 04/24/2025 1:30 PM EST [facility] Comment:As of 2021, the estimated [...] MD LAB BLOOD ORDERABLES Final Resul t [facility] [address] * (ABNORMAL) CBC (04/24/2025 12:29 PM EST) WBC 8.8 3.8 - 10.8 10E3/uL 04/24/2025 1:11 PM EST [facility] RBC 2.98(L) 3.80 - 5.10 10E6/uL 04/24/2025 1:11 PM EST [facility] Hemoglobin 9.1(L) 11.7 - 15.5 g/dL 04/24/2025 1:11 PM EST [facility] Hematocrit 25.9(L) 35.0 - 45.0 % 04/24/2025 1:11 PM EST [facility] MCV 87.0 80.0 - 100.0 fL 04/24/2025 1:11 PM EST [facility] MCH 30.6 27.0 - 33.0 pg 04/24/2025 1:11 PM EST [facility] MCHC 35.2 32.0 - 36.0 g/dL 04/24/2025 1:11 PM EST [facility] RDW 17.0(H) 11.0 - 15.0 % 04/24/2025 1:11 PM EST [facility] Platelets 49(L) 140 - 400 10E3/uL 04/24/2025 1:11 PM EST [facility] Comment:CNV MPV 9.7 7.5 - 11.5 fL 04/24/2025 1:11 PM EST [facility] Whole Blood 04/24/2025 12:2 9 PM EST 04/24/2025 12:55 PM EST Julius Becerra MD LAB BLOOD ORDERABLES Final Resul t Performing Organization Address City/[facility]/ZIP Co de Phone Number [facility] [address] [facility]. [address] * (ABNORMAL) POC Glucose Monitoring Device (04/24/2025 12:25 PM EST) POC Glucose Monitoring Device 112(H) 70 - 100 mg/dL 04/24/2025 12:33 PM EST [facility] Blood 04/24/2025 12:2 5 PM EST 04/24/2025 12:32 PM EST Ludin Jose MD POINT OF CARE TEST ORDERABLES Fi nal Result Performing Organization Address [facility] Co de Phone Number [facility] [address] * X-ray Portable Chest (04/24/2025 8:52 AM [...] - 15.0 ng/mL 04/24/2025 12:56 PM EST [facility] Comment:Performed via liquid chromatography tandem mass spectrometry. Detection limit: 1 ng/mL. Individual target concentrations may vary due to target organ and time after transplant. This test has been developed and its performance characteristics determined by [facility] which is certified under [...] MD LAB BLOOD ORDERABLES Final Resul t [facility] [address] [place] [address], [facility] * Prepare RBC, leukoreduced, 6 Units (04/24/2025 6:15 AM EST) Product Code Y3086D08 HCLL Unit Number [id number] HCLL Dispense Status Presumed Transfused_PT HCLL Blood Expiration Date HCLL Coding System [id number] HCLL Product Code N8412Y98 HCLL Unit Number [id number] HCLL Dispense Status Presumed Transfused_PT [facility]LL Blood Expiration Date HCLL Coding System [id number] HCLL Blood Bank Product us Moe Luis MD BLOOD BANK PRODUCT ORD ERABLES Final Result [facility] * Prepare RBC, leukoreduced, 4 Units (04/24/2025 6:15 AM EST) Product Code D3487Y51 [facility]LL Unit Number [id number] HCLL Dispense Status Presumed Transfused_PT HCLL Blood Expiration Date HCLL Coding System AVRW211 HCLL Product Code T1680Y83 HCLL Unit Number [id number] HCLL Dispense Status Released from Crossmatch_RE HCLL Blood Expiration Date HCLL Coding System AOAT108 HCLL Product Code W3002T41 HCLL Unit Number [id number] HCLL Dispense Status Released from Crossmatch_RE HCLL Blood Expiration Date HCLL Coding System XVLF481 HCLL Product Code X3312N41 HCLL Unit Number [id number] HCLL Dispense Status Released from Crossmatch_RE HCLL Blood Expiration Date HCLL Coding System HSQP774 HCLL Product Code V0442R20 HCLL Unit Number [id number] HCLL Dispense Status Released from Crossmatch_RE HCLL Blood Expiration Date HCLL Coding System UZBC276 HCLL Product Code X5197U02 HCLL Unit Number [id number] HCLL Dispense Status Released from Crossmatch_RE HCLL Blood Expiration Date HCLL Coding System GBOL805 [facility]LL Blood Bank Product Catracho Hui MD BLOOD BANK PRODUCT ORDERAB LES Final Result Performing Organization Address City/[facility]/ZIP Co de Phone Number [facility] * Prepare Platelets, leukoreduced, 1 Units (04/24/2025 6:15 AM EST) Product Code C5169Z93 HCLL Unit Number [id number] HCLL Dispense Status Presumed Transfused_PT HCLL Blood Expiration Date HCLL Coding System QPLI842 [facility]LL Blood Bank Product us Sergey Altman MD BLOOD BANK PRODUCT O RDERABLES Final Result Performing Organization Address [facility] Co de Phone Number [facility] * Prepare Cryoprecipitate, 1 Units (04/24/2025 6:15 AM EST) Product Code A1052J86 HCLL Unit Number [id number] HCLL Dispense Status Presumed Transfused_PT HCLL Blood Expiration Date HCLL Coding System KGAA059 HCLL Product Code P9065L96 HCLL Unit Number [id number] HCLL Dispense Status Presumed Transfused_PT HCLL Blood Expiration Date HCLL Coding System EITR510 HCLL Blood Bank Product Sergey Altman MD BLOOD BANK PRODUCT O RDERABLES Final Result Performing Organization Address City/[facility] Co de Phone Number [facility] * Prepare Cryoprecipitate, 1 Units (04/24/2025 6:15 AM EST) Product Code F0945C08 HCLL Unit Number [id number] HCLL Dispense Status Presumed Transfused_PT HCLL Blood Expiration Date HCLL Coding System XUFO041 HCLL Product Code G0545K89 HCLL Unit Number [id number] HCLL Dispense Status Presumed Transfused_PT HCLL Blood Expiration Date HCLL Coding System HKZT733 HCLL Blood Bank Product Segrey Altman MD BLOOD BANK PRODUCT O RDERABLES Final Result Performing Organization Address [facility] Co de Phone Number [facility] * Prepare Fresh Frozen Plasma, 2 Units (04/24/2025 6:15 AM EST) Product Code V8807I02 HCLL Unit Number [id number] HCLL Dispense Status Presumed Transfused_PT HCLL Blood Expiration Date HCLL Coding System QOHF119 HCLL Product Code A4163A72 HCLL Unit Number [id number] HCLL Dispense Status Presumed Transfused_PT HCLL Blood Expiration Date HCLL Coding System BJHX447 HCLL Blood Bank Product Sergey Altman MD BLOOD BANK PRODUCT O RDERABLES Final Result Performing Organization Address [facility] Co de Phone Number [facility] * Prepare RBC, leukoreduced, 3 Units (04/24/2025 6:15 AM EST) Product Code G4673Z11 HCLL Unit Number [id number] HCLL Dispense Status Presumed Transfused_PT HCLL Blood Expiration Date HCLL Coding System AKPX871 HCLL Product Code J6794T42 HCLL Unit Number [id number] HCLL Dispense Status Presumed Transfused_PT HCLL Blood Expiration Date HCLL Coding System MIHW782 HCLL Product Code O2756J47 HCLL Unit Number [id number] HCLL Dispense Status Released from Crossmatch_RE HCLL Blood Expiration Date HCLL Coding System RTFX884 HCLL Blood Bank Product Sergey Altman MD BLOOD BANK PRODUCT O RDERABLES Final Result [facility] * Prepare RBC, leukoreduced, 1 Units (04/24/2025 6:15 AM EST) Product Code R3526K25 HCLL Unit Number [id number] HCLL Dispense Status Presumed Transfused_PT HCLL Blood Expiration Date HCLL Coding System OBMD823 HCLL Blood Bank Product Sergey Altman MD BLOOD BANK PRODUCT O RDERABLES Final Result Performing Organization Address City/[facility] Co de Phone Number [facility] * Prepare RBC, leukoreduced, 2 Units (04/24/2025 6:15 AM EST) Product Code A6845U31 HCLL Unit Number [id number] HCLL Dispense Status Presumed Transfused_PT HCLL Blood Expiration Date HCLL Coding System LPZH825 HCLL Product Code L4973M98 HCLL Unit Number [id number] HCLL Dispense Status Presumed Transfused_PT HCLL Blood Expiration Date HCLL Coding System RPCV178 HCLL Blood Bank Product Sergey Altman MD BLOOD BANK PRODUCT O RDERABLES Final Result [facility] * (ABNORMAL) Blood Gas, Arterial, STAT (04/24/2025 5:43 AM EST) O2 Sat, Arterial 100 04/24/2025 5:49 AM EST [facility] FIO2 40% 04/24/2025 5:49 AM EST [facility] pH, Arterial 7.37 7.35 - 7.45 04/24/2025 5:49 AM EST [facility] pCO2, Arterial 40 35 - 45 mm Hg 04/24/2025 5:49 AM EST [facility] pO2, Arterial 107(H) 80 - 100 mm Hg 04/24/2025 5:49 AM EST [facility] HCO3, Arterial 23 22 - 26 mmol/L 04/24/2025 5:49 AM EST [facility] CO2 Content,Arteri al 24 23 - 27 mmol/L 04/24/2025 5:49 AM EST [facility] Base Excess, Arterial -2.0 -2.0 - 3.0 mmol/L 04/24/2025 5:49 AM EST [facility] %HBO2, Arterial 97.3 95.0 - 98.0 % 04/24/2025 5:49 AM EST [facility] Carboxyhemoglo bin, Arterial 2.7 % 04/24/2025 5:49 AM EST [facility] Comment: CARBOXYHEMOGLOBIN (CO) REFERENCE RANGES: Non-Smokers: <2 % Smokers: <8 % TOXIC: >20 % Methemoglobin, Arterial 0.0 0.0 - 1.5 % 04/24/2025 5:49 AM EST [facility] Blood, Arterial 04/24/2025 5 :43 AM EST 04/24/2025 5:46 AM EST us Judith Murcia MD LAB BLOOD ORDERABLES Final Res ult Performing Organization Address City/[facility]/ZIP Co de Phone Number [facility] [address] * (ABNORMAL) POC Glucose Monitoring Device (04/24/2025 4:38 AM EST) POC Glucose Monitoring Device 103(H) 70 - 100 mg/dL 04/24/2025 4:39 AM EST [facility] Blood 04/24/2025 4:38 AM EST 04/24/2025 4:39 AM EST us Ludin Jose MD POINT OF CARE TEST ORDERABLES Fi nal Result Performing Organization Address City/[facility] Co de Phone Number [facility] [address] * Protime-INR, STAT (04/24/2025 4:36 AM EST) Protime 14.7 12.1 - 15.1 seconds 04/24/2025 5:13 AM EST [facility] INR 1.1 0.9 - 1.1 04/24/2025 5:13 AM EST [facility] Comment: RECOMMENDED THERAPEUTIC RANGES USING INR : Stable oral anticoagulant therapy: 2.0 - 3.0 Mechanical prosthetic heart valve: 2.5 - 3.5 Recurrent acute myocardial infarction: 2.5 - 3.5 Plasma 04/24/2025 4:36 AM EST 04/24/2025 4:44 AM EST us Judith Murcia MD LAB BLOOD ORDERABLES Final Res ult [facility] [address] * TEG-Bypass/ECMO/Liver HN (Factor function, Platelet/Fibrin Clot Strength w/Clot Breakdown, Heparinase In All Channels) (04/24/2025 4:36 AM EST) Citrated Kaolin Reaction Time (TEGECMOLIVER) 6.2 4.6 - 9.1 minutes 04/24/2025 6:00 AM EST [facility] Citrated Kaolin W/Heparinase Reaction Time (TEGECMOLIVER) 5.3 4.3 - 8.3 minutes 04/24/2025 6:00 AM EST [facility] Citrated Kaolin Maximum Amplitude (TEGECMOLIVER) 58.2 52.0 - 69.0 mm 04/24/2025 6:00 AM EST [facility] Citrated Functional Fibrinogen W/Heparinase Maximum Amplitude(TEGEC MOLIVER) 19.2 15.0 - 34.0 mm 04/24/2025 6:00 AM EST [facility] Citrated Rapid Teg W/Heparinase Maximum Amplitude (TEGECMOLIVER) 55.6 53.0 - 69.0 mm 04/24/2025 6:00 AM EST [facility] Citrated Kaolin w/Heparinase Percent Lysis (TEGECMOLIVER) 0.0 0.0 - 3.2 % 04/24/2025 6:00 AM EST [facility] Whole Blood (Citrate) 04/24/2025 4:36 AM EST 04/24/2025 4:44 AM EST Julius Becerra MD LAB BLOOD ORDERABLES Final Resul t Performing Organization Address City/[facility]/ZIP Co de Phone Number [facility] [address] [facility]. [address] * Magnesium (04/24/2025 4:36 AM EST) Magnesium 2.4 1.5 - 2.5 mg/dL 04/24/2025 5:16 AM EST [facility] Plasma 04/24/2025 4:36 AM EST 04/24/2025 4:44 AM EST Gloria Chen MD LAB BLOOD ORDERABLES Final Resul t Performing Organization Address City/[facility] Co de Phone Number [facility] [address] [facility]. [address] * (ABNORMAL) Renal Function Panel w/EGFR (04/24/2025 4:36 AM EST) Sodium 139 133 - 146 mmol/L 04/24/2025 5:16 AM EST [facility] Potassium 4.9 3.5 - 5.3 mmol/L 04/24/2025 5:16 AM EST [facility] Chloride 108 98 - 110 mmol/L 04/24/2025 5:16 AM EST [facility] CO2 26 21 - 33 mmol/L 04/24/2025 5:16 AM EST [facility] Comment:High lactate dehydro genase concentrations in patient samples may cause falsely increased bicarbonate results. If markedly elevated LDH is observed or suspected, please assess results in conjunction with patient`s clinical presentation. In cases of discrepant results, consider evaluating CO2 in with a blood gas order. Anion Gap 5 3 - 16 mmol/L 04/24/2025 5:16 AM EST [facility] BUN 38(H) 7 - 25 mg/dL 04/24/2025 5:16 AM EST [facility] Creatinine 1.25 0.60 - 1.30 mg/dL 04/24/2025 5:16 AM EST [facility] Glucose 99 70 - 100 mg/dL 04/24/2025 5:16 AM EST [facility] Calcium 7.6(L) 8.6 - 10.3 mg/dL 04/24/2025 5:16 AM EST [facility] Phosphorus 5.0(H) 2.1 - 4.7 mg/dL 04/24/2025 5:16 AM EST [facility] Albumin 2.4(L) 3.5 - 5.7 g/dL 04/24/2025 5:16 AM EST [facility] Osmolality, Calculated 297 278 - 305 mOsm/kg 04/24/2025 5:16 AM EST [facility] EGFR 58 04/24/2025 5:16 AM EST [facility] Comment:As of 2021, the estimated [...] MD LAB BLOOD ORDERABLES Final Resul t [facility] [address] [facility] [place] [address], [facility] * (ABNORMAL) CBC (04/24/2025 4:36 AM EST) WBC 9.4 3.8 - 10.8 10E3/uL 04/24/2025 4:48 AM EST [facility] RBC 3.29(L) 3.80 - 5.10 10E6/uL 04/24/2025 4:48 AM EST [facility] Hemoglobin 9.9(L) 11.7 - 15.5 g/dL 04/24/2025 4:48 AM EST [facility] Hematocrit 28.3(L) 35.0 - 45.0 % 04/24/2025 4:48 AM EST [facility] MCV 86.1 80.0 - 100.0 fL 04/24/2025 4:48 AM EST [facility] MCH 30.2 27.0 - 33.0 pg 04/24/2025 4:48 AM EST [facility] MCHC 35.1 32.0 - 36.0 g/dL 04/24/2025 4:48 AM EST [facility] RDW 17.1(H) 11.0 - 15.0 % 04/24/2025 4:48 AM EST [facility] Platelets 55(L) 140 - 400 10E3/uL 04/24/2025 4:48 AM EST [facility] MPV 9.2 7.5 - 11.5 fL 04/24/2025 4:48 AM [facility] Whole Blood 04/24/2025 4:36 AM EST 04/24/2025 4:44 AM EST us Julius Becerra MD LAB BLOOD ORDERABLES Final Resul t [facility] [address] * (ABNORMAL) Hepatic Function Panel (04/24/2025 4:36 AM EST) Total Bilirubin 2.9(H) 0.0 - 1.5 mg/dL 04/24/2025 5:16 AM EST [facility] Bilirubin, Direct 2.19(H) 0.00 - 0.40 mg/dL 04/24/2025 5:16 AM EST [facility] AST 77(H) 13 - 39 U/L 04/24/2025 5:16 AM EST [facility] ALT 98(H) 7 - 52 U/L 04/24/2025 5:16 AM EST [facility] Alkaline Phosphatase 84 36 - 125 U/L 04/24/2025 5:16 AM EST [facility] Total Protein 3.9(L) 6.4 - 8.9 g/dL 04/24/2025 5:16 AM EST [facility] Albumin 2.4(L) 3.5 - 5.7 g/dL 04/24/2025 5:16 AM EST [facility] Bilirubin, Indirect 0.71 0.00 - 1.10 mg/dL 04/24/2025 5:16 AM EST [facility] Plasma 04/24/2025 4:36 AM EST 04/24/2025 4:44 AM EST us Gloria Chen MD LAB BLOOD ORDERABLES Final Resul t Performing Organization Address City/[facility]/ZIP Co de Phone Number [facility] [address] [facility]. [address] * (ABNORMAL) POC Glucose Monitoring Device (04/24/2025 12:12 AM EDT) POC Glucose Monitoring Device 118(H) 70 - 100 mg/dL 04/24/2025 12:22 AM EDT [facility] Blood 04/24/2025 12:1 2 AM EDT 04/24/2025 12:22 AM EDT us Ludin Jose MD POINT OF CARE TEST ORDERABLES Fi nal Result [facility] [address] * Protime-INR, STAT (04/24/2025 12:00 AM EDT) Protime 14.9 12.1 - 15.1 seconds 04/24/2025 12:59 AM EDT [facility] INR 1.1 0.9 - 1.1 04/24/2025 12:59 AM EDT [facility] Comment: RECOMMENDED THERAPEUTIC RANGES USING INR : Stable oral anticoagulant therapy: 2.0 - 3.0 Mechanical prosthetic heart valve: 2.5 - 3.5 Recurrent acute myocardial infarction: 2.5 - 3.5 Plasma 04/24/2025 04/24/2025 12: 27 AM EDT us Judith Murcia MD LAB BLOOD ORDERABLES Final Res ult [facility] [address] [id number], [facility] * (ABNORMAL) Blood Gas, Arterial, STAT (04/24/2025 12:00 AM EDT) O2 Sat, Arterial 100 04/24/2025 12:32 AM EDT [facility] FIO2 40% FiO2 04/24/2025 12:32 AM EDT [facility] pH, Arterial 7.34(L) 7.35 - 7.45 04/24/2025 12:32 AM EDT [facility] pCO2, Arterial 45 35 - 45 mm Hg 04/24/2025 12:32 AM EDT [facility] pO2, Arterial 102(H) 80 - 100 mm Hg 04/24/2025 12:32 AM EDT [facility] HCO3, Arterial 24 22 - 26 mmol/L 04/24/2025 12:32 AM EDT [facility] CO2 Content,Arteri al 26 23 - 27 mmol/L 04/24/2025 12:32 AM EDT [facility] Base Excess, Arterial -1.6 -2.0 - 3.0 mmol/L 04/24/2025 12:32 AM EDT [facility] %HBO2, Arterial 96.7 95.0 - 98.0 % 04/24/2025 12:32 AM EDT [facility] Carboxyhemoglo bin, Arterial 2.2 % 04/24/2025 12:32 AM EDT [facility] Comment: CARBOXYHEMOGLOBIN (CO) REFERENCE RANGES: Non-Smokers: <2 % Smokers: <8 % TOXIC: >20 % Methemoglobin, Arterial 0.9 0.0 - 1.5 % 04/24/2025 12:32 AM EDT [facility] Blood, Arterial 04/24/2025 12:27 AM EDT us Judith Murcia MD LAB BLOOD ORDERABLES Final Res ult [facility] [address] * TEG-Bypass/ECMO/Liver HN (Factor function, Platelet/Fibrin Clot Strength w/Clot Breakdown, Heparinase In All Channels) (04/24/2025 12:00 AM EDT) Citrated Kaolin Reaction Time (TEGECMOLIVER) 6.0 4.6 - 9.1 minutes 04/24/2025 1:08 AM EDT [facility] Citrated Kaolin W/Heparinase Reaction Time (TEGECMOLIVER) 5.4 4.3 - 8.3 minutes 04/24/2025 1:08 AM EDT [facility] Citrated Kaolin Maximum Amplitude (TEGECMOLIVER) 59.2 52.0 - 69.0 mm 04/24/2025 1:08 AM EDT [facility] Citrated Functional Fibrinogen W/Heparinase Maximum Amplitude(TEGEC MOLIVER) 19.4 15.0 - 34.0 mm 04/24/2025 1:08 AM EDT [facility] Citrated Rapid Teg W/Heparinase Maximum Amplitude (TEGECMOLIVER) 57.1 53.0 - 69.0 mm 04/24/2025 1:08 AM EDT [facility] Citrated Kaolin w/Heparinase Percent Lysis (TEGECMOLIVER) 0.0 0.0 - 3.2 % 04/24/2025 1:08 AM EDT [facility] Whole Blood (Citrate) 04/24/2025 04/24/2025 12:27 AM EDT us Julius Becerra MD LAB BLOOD ORDERABLES Final Resul t [facility] [address] * Magnesium (04/24/2025 12:00 AM EDT) Magnesium 2.4 1.5 - 2.5 mg/dL 04/24/2025 12:54 AM EDT [facility] Plasma 04/24/2025 04/24/2025 12: 27 AM EDT us Gloria Chen MD LAB BLOOD ORDERABLES Final Resul t [facility] [address] [address] [id number], [facility] * (ABNORMAL) Renal Function Panel w/EGFR (04/24/2025 12:00 AM EDT) Sodium 138 133 - 146 mmol/L 04/24/2025 12:54 AM EDT [facility] Potassium 5.3 3.5 - 5.3 mmol/L 04/24/2025 12:54 AM EDT [facility] Chloride 108 98 - 110 mmol/L 04/24/2025 12:54 AM EDT [facility] CO2 26 21 - 33 mmol/L 04/24/2025 12:54 AM EDT [facility] Comment:High lactate dehydro genase concentrations in patient samples may cause falsely increased bicarbonate results. If markedly elevated LDH is observed or suspected, please assess results in conjunction with patient`s clinical presentation. In cases of discrepant results, consider evaluating CO2 in with a blood gas order. Anion Gap 4 3 - 16 mmol/L 04/24/2025 12:54 AM EDT [facility] BUN 37(H) 7 - 25 mg/dL 04/24/2025 12:54 AM EDT [facility] Creatinine 1.25 0.60 - 1.30 mg/dL 04/24/2025 12:54 AM EDT [facility] Glucose 118(H) 70 - 100 mg/dL 04/24/2025 12:54 AM EDT [facility] Calcium 7.9(L) 8.6 - 10.3 mg/dL 04/24/2025 12:54 AM EDT [facility] Phosphorus 5.4(H) 2.1 - 4.7 mg/dL 04/24/2025 12:54 AM EDT [facility] Albumin 2.5(L) 3.5 - 5.7 g/dL 04/24/2025 12:54 AM EDT [facility] Osmolality, Calculated 296 278 - 305 mOsm/kg 04/24/2025 12:54 AM EDT [facility] EGFR 58 04/24/2025 12:54 AM EDT [facility] Comment:As of 2021, the estimated [...] MD LAB BLOOD ORDERABLES Final Resul t [facility] [address] [id number], [facility] * (ABNORMAL) CBC (04/24/2025 12:00 AM EDT) WBC 10.5 3.8 - 10.8 10E3/uL 04/24/2025 12:31 AM EDT [facility] RBC 3.41(L) 3.80 - 5.10 10E6/uL 04/24/2025 12:31 AM EDT [facility] Hemoglobin 10.4(L) 11.7 - 15.5 g/dL 04/24/2025 12:31 AM EDT [facility] Hematocrit 29.6(L) 35.0 - 45.0 % 04/24/2025 12:31 AM EDT [facility] MCV 86.8 80.0 - 100.0 fL 04/24/2025 12:31 AM EDT [facility] MCH 30.4 27.0 - 33.0 pg 04/24/2025 12:31 AM EDT [facility] MCHC 35.1 32.0 - 36.0 g/dL 04/24/2025 12:31 AM EDT [facility] RDW 16.8(H) 11.0 - 15.0 % 04/24/2025 12:31 AM EDT [facility] Platelets 65(L) 140 - 400 10E3/uL 04/24/2025 12:31 AM EDT [facility] MPV 9.8 7.5 - 11.5 fL 04/24/2025 12:31 AM EDT [facility] Whole Blood 04/24/2025 04/24/2025 12 :27 AM EDT us Julius Becerra MD LAB BLOOD ORDERABLES Final Resul t Performing Organization Address [facility] Co de Phone Number [facility] [address] [facility]. [address] * Protime-INR, STAT (04/23/2025 6:11 PM EDT) Protime 15.1 12.1 - 15.1 seconds 04/23/2025 6:38 PM EDT [facility] INR 1.1 0.9 - 1.1 04/23/2025 6:38 PM EDT [facility] Comment: RECOMMENDED THERAPEUTIC RANGES USING INR : Stable oral anticoagulant therapy: 2.0 - 3.0 Mechanical prosthetic heart valve: 2.5 - 3.5 Recurrent acute myocardial infarction: 2.5 - 3.5 Plasma 04/23/2025 6:11 PM EDT 04/23/2025 6:17 PM EDT us Judith Murcia MD LAB BLOOD ORDERABLES Final Res ult [facility] [address] * (ABNORMAL) Blood Gas, Arterial, STAT (04/23/2025 6:11 PM EDT) O2 Sat, Arterial 100 04/23/2025 6:20 PM EDT [facility] FIO2 40% 04/23/2025 6:20 PM EDT [facility] pH, Arterial 7.34(L) 7.35 - 7.45 04/23/2025 6:20 PM EDT [facility] pCO2, Arterial 44 35 - 45 mm Hg 04/23/2025 6:20 PM EDT [facility] pO2, Arterial 107(H) 80 - 100 mm Hg 04/23/2025 6:20 PM EDT [facility] HCO3, Arterial 23 22 - 26 mmol/L 04/23/2025 6:20 PM EDT [facility] CO2 Content,Arteri al 25 23 - 27 mmol/L 04/23/2025 6:20 PM EDT [facility] Base Excess, Arterial -2.1(L) -2.0 - 3.0 mmol/L 04/23/2025 6:20 PM EDT [facility] %HBO2, Arterial 96.3 95.0 - 98.0 % 04/23/2025 6:20 PM EDT [facility] Carboxyhemoglo bin, Arterial 2.4 % 04/23/2025 6:20 PM EDT [facility] Comment: CARBOXYHEMOGLOBIN (CO) REFERENCE RANGES: Non-Smokers: <2 % Smokers: <8 % TOXIC: >20 % Methemoglobin, Arterial 0.8 0.0 - 1.5 % 04/23/2025 6:20 PM EDT [facility] Blood, Arterial 04/23/2025 6 :11 PM EDT 04/23/2025 6:17 PM EDT us Judith Murcia MD LAB BLOOD ORDERABLES Final Res ult [facility] [address] [id number], [facility] * TEG-Bypass/ECMO/Liver HN (Factor function, Platelet/Fibrin Clot Strength w/Clot Breakdown, Heparinase In All Channels) (04/23/2025 6:11 PM EDT) Citrated Kaolin Reaction Time (TEGECMOLIVER) 7.4 4.6 - 9.1 minutes 04/23/2025 7:55 PM EDT [facility] Citrated Kaolin W/Heparinase Reaction Time (TEGECMOLIVER) 6.1 4.3 - 8.3 minutes 04/23/2025 7:55 PM EDT [facility] Citrated Kaolin Maximum Amplitude (TEGECMOLIVER) 55.1 52.0 - 69.0 mm 04/23/2025 7:55 PM EDT [facility] Citrated Functional Fibrinogen W/Heparinase Maximum Amplitude(TEGEC MOLIVER) 18.1 15.0 - 34.0 mm 04/23/2025 7:55 PM EDT [facility] Citrated Rapid Teg W/Heparinase Maximum Amplitude (TEGECMOLIVER) 54.3 53.0 - 69.0 mm 04/23/2025 7:55 PM EDT [facility] Citrated Kaolin w/Heparinase Percent Lysis (TEGECMOLIVER) 0.0 0.0 - 3.2 % 04/23/2025 7:55 PM EDT [facility] Whole Blood (Citrate) 04/23/2025 6:11 PM EDT 04/23/2025 6:17 PM EDT Julius Becerra MD LAB BLOOD ORDERABLES Final Resul t [facility] [address] [place] [address] * Magnesium (04/23/2025 6:11 PM EDT) Magnesium 2.3 1.5 - 2.5 mg/dL 04/23/2025 6:52 PM EDT [facility] Plasma 04/23/2025 6:11 PM EDT 04/23/2025 6:17 PM EDT Gloria Chen MD LAB BLOOD ORDERABLES Final Resul t [facility] [address] [place] [address] * (ABNORMAL) Renal Function Panel w/EGFR (04/23/2025 6:11 PM EDT) Sodium 138 133 - 146 mmol/L 04/23/2025 6:52 PM EDT [facility] Potassium 5.4(H) 3.5 - 5.3 mmol/L 04/23/2025 6:52 PM EDT [facility] Chloride 107 98 - 110 mmol/L 04/23/2025 6:52 PM EDT [facility] CO2 24 21 - 33 mmol/L 04/23/2025 6:52 PM EDT [facility] Comment:High lactate dehydro genase concentrations in patient samples may cause falsely increased bicarbonate results. If markedly elevated LDH is observed or suspected, please assess results in conjunction with patient`s clinical presentation. In cases of discrepant results, consider evaluating CO2 in with a blood gas order. Anion Gap 7 3 - 16 mmol/L 04/23/2025 6:52 PM EDT [facility] BUN 35(H) 7 - 25 mg/dL 04/23/2025 6:52 PM EDT [facility] Creatinine 1.11 0.60 - 1.30 mg/dL 04/23/2025 6:52 PM EDT [facility] Glucose 154(H) 70 - 100 mg/dL 04/23/2025 6:52 PM EDT [facility] Calcium 7.9(L) 8.6 - 10.3 mg/dL 04/23/2025 6:52 PM EDT [facility] Phosphorus 5.3(H) 2.1 - 4.7 mg/dL 04/23/2025 6:52 PM EDT [facility] Albumin 2.5(L) 3.5 - 5.7 g/dL 04/23/2025 6:52 PM EDT [facility] Osmolality, Calculated 297 278 - 305 mOsm/kg 04/23/2025 6:52 PM EDT [facility] EGFR 66 04/23/2025 6:52 PM EDT [facility] Comment:As of 2021, the estimated [...] reported as >90mL/min/1.73m2. Reference: Usama Ruiz, Hernandez Falcon, Chato [place], Suzy [place], Jyoti [place], Nas [place], et al. A Unifying Approach for GFR Estimation: Recommendations of the NKF-ASN Task Force on Reassessing the inclusion of Race in Diagnosing Kidney Disease. Am J Kidney Dis. 2020. Plasma 04/23/2025 6:11 PM EDT 04/23/2025 6:17 PM EDT us Gloria Chen MD LAB BLOOD ORDERABLES Final Resul t [facility] [address] [place] [address], [facility] * (ABNORMAL) CBC (04/23/2025 6:11 PM EDT) WBC 9.1 3.8 - 10.8 10E3/uL 04/23/2025 6:26 PM EDT [facility] RBC 3.66(L) 3.80 - 5.10 10E6/uL 04/23/2025 6:26 PM EDT [facility] Hemoglobin 11.1(L) 11.7 - 15.5 g/dL 04/23/2025 6:26 PM EDT [facility] Hematocrit 31.4(L) 35.0 - 45.0 % 04/23/2025 6:26 PM EDT [facility] MCV 85.7 80.0 - 100.0 fL 04/23/2025 6:26 PM EDT [facility] MCH 30.4 27.0 - 33.0 pg 04/23/2025 6:26 PM EDT [facility] MCHC 35.5 32.0 - 36.0 g/dL 04/23/2025 6:26 PM EDT [facility] RDW 16.4(H) 11.0 - 15.0 % 04/23/2025 6:26 PM EDT [facility] Platelets 63(L) 140 - 400 10E3/uL 04/23/2025 6:26 PM EDT [facility] MPV 9.3 7.5 - 11.5 fL 04/23/2025 6:26 PM EDT [facility] Whole Blood 04/23/2025 6:11 PM EDT 04/23/2025 6:17 PM EDT us Julius Becerra MD LAB BLOOD ORDERABLES Final Resul t [facility] [address] * (ABNORMAL) POC Glucose Monitoring Device (04/23/2025 6:09 PM EDT) POC Glucose Monitoring Device 145(H) 70 - 100 mg/dL 04/23/2025 6:11 PM EDT [facility] Blood 04/23/2025 6:09 PM EDT 04/23/2025 6:11 PM EDT us Ludin Jose MD POINT OF CARE TEST ORDERABLES Fi nal Result Performing Organization Address [facility] Co de Phone Number [facility] [address] [facility]. [address] * US Duplex Ejm-Zhe-Hbyvmkv Comp (04/23/2025 2:12 PM EDT) Anatomical Region [...] EXAM: US ABDOMEN LIMITED EXAM: US DUPLEX [id number] COMPLETE INDICATION: Liver Transplant COMPARISON: None TECHNIQUE: [...] EXAM: US ABDOMEN LIMITED EXAM: US DUPLEX [id number] COMPLETE INDICATION: Liver Transplant COMPARISON: None TECHNIQUE: [...] 04/23/2025 2:30 PM EDT Giovanny Louis MD [facility]LES Final Result * US Abdomen [...] EXAM: US ABDOMEN LIMITED EXAM: US DUPLEX [id number] COMPLETE INDICATION: Liver Transplant COMPARISON: None TECHNIQUE: [...] EXAM: US ABDOMEN LIMITED EXAM: US DUPLEX [id number] COMPLETE INDICATION: Liver Transplant COMPARISON: None TECHNIQUE: [...] 04/23/2025 2:30 PM EDT Giovanny Louis MD IMG US ORDERABLES Final Result * (ABNORMAL) Protime-INR, STAT (04/23/2025 1:44 PM EDT) Protime 15.5(H) 12.1 - 15.1 seconds 04/23/2025 2:16 PM EDT [facility] INR 1.2(H) 0.9 - 1.1 04/23/2025 2:16 PM EDT [facility] Comment: RECOMMENDED THERAPEUTIC RANGES USING INR : Stable oral anticoagulant therapy: 2.0 - 3.0 Mechanical prosthetic heart valve: 2.5 - 3.5 Recurrent acute myocardial infarction: 2.5 - 3.5 Plasma 04/23/2025 1:44 PM EDT 04/23/2025 1:53 PM EDT Judith Murcia MD LAB BLOOD ORDERABLES Final Res ult [facility] [address] * (ABNORMAL) Blood Gas, Arterial, STAT (04/23/2025 1:44 PM EDT) O2 Sat, Arterial 98 04/23/2025 1:56 PM EDT [facility] FIO2 40 04/23/2025 1:56 PM EDT [facility] pH, Arterial 7.33(L) 7.35 - 7.45 04/23/2025 1:56 PM EDT [facility] pCO2, Arterial 42 35 - 45 mm Hg 04/23/2025 1:56 PM EDT [facility] pO2, Arterial 88 80 - 100 mm Hg 04/23/2025 1:56 PM EDT [facility] HCO3, Arterial 22 22 - 26 mmol/L 04/23/2025 1:56 PM EDT [facility] CO2 Content,Arteri al 23 23 - 27 mmol/L 04/23/2025 1:56 PM EDT [facility] Base Excess, Arterial -3.7(L) -2.0 - 3.0 mmol/L 04/23/2025 1:56 PM EDT [facility] %HBO2, Arterial 94.7(L) 95.0 - 98.0 % 04/23/2025 1:56 PM EDT [facility] Carboxyhemoglo bin, Arterial 2.2 % 04/23/2025 1:56 PM EDT [facility] Comment: CARBOXYHEMOGLOBIN (CO) REFERENCE RANGES: Non-Smokers: <2 % Smokers: <8 % TOXIC: >20 % Methemoglobin, Arterial 1.2 0.0 - 1.5 % 04/23/2025 1:56 PM EDT [facility] Blood, Arterial 04/23/2025 1 :44 PM EDT 04/23/2025 1:51 PM EDT Judith Murcia MD LAB BLOOD ORDERABLES Final Res ult Performing Organization Address [facility] Co de Phone Number [facility] [address] * Transfuse RBC Transfusion Rate: Per dept routine (04/23/2025 1:11 PM EDT) us Moe Luis MD NURSING TREATMENT ORDE RABLES - BLOOD ADMIN Final Result EXTERNAL * Transfuse RBC Transfusion Rate: Per dept routine, 2 Units (04/23/2025 1:11 PM EDT) us Moe Luis MD NURSING TREATM ENT ORDERABLES - BLOOD ADMIN Edited Result - Final Performing Organization Address [facility] Co de Phone Number EXTERNAL * [...] - 146 mmol/L 04/23/2025 12:54 PM EDT [facility] Potassium 5.1 3.5 - 5.3 mmol/L 04/23/2025 12:54 PM EDT [facility] Chloride 107 98 - 110 mmol/L 04/23/2025 12:54 PM EDT [facility] CO2 24 21 - 33 mmol/L 04/23/2025 12:54 PM EDT [facility] Comment:High lactate dehydro genase concentrations in patient samples may cause falsely increased bicarbonate results. If markedly elevated LDH is observed or suspected, please assess results in conjunction with patient`s clinical presentation. In cases of discrepant results, consider evaluating CO2 in with a blood gas order. Anion Gap 7 3 - 16 mmol/L 04/23/2025 12:54 PM EDT [facility] BUN 31(H) 7 - 25 mg/dL 04/23/2025 12:54 PM EDT [facility] Creatinine 0.95 0.60 - 1.30 mg/dL 04/23/2025 12:54 PM EDT [facility] Glucose 159(H) 70 - 100 mg/dL 04/23/2025 12:54 PM EDT [facility] Calcium 8.4(L) 8.6 - 10.3 mg/dL 04/23/2025 12:[facility] Phosphorus 5.0(H) 2.1 - 4.7 mg/dL 04/23/2025 12:54 PM EDT [facility] Albumin 2.3(L) 3.5 - 5.7 g/dL 04/23/2025 12:54 PM EDT [facility] Osmolality, Calculated 296 278 - 305 mOsm/kg 04/23/2025 12:54 PM EDT [facility] EGFR 80 04/23/2025 12:54 PM T [facility] Comment:As of 2021, the estimated [...] MD LAB BLOOD ORDERABLES Final Resul t [facility] [address] [place], [place] [address] * (ABNORMAL) TEG-Bypass/ECMO/Liver HN (Factor function, Platelet/Fibrin Clot Strength w/Clot Breakdown, Heparinase In All Channels) (04/23/2025 11:46 AM EDT) [facility] Citrated Kaolin Reaction Time (TEGECMOLIVER) 7.3 4.6 - 9.1 minutes 04/23/2025 1:06 PM EDT [facility] Citrated Kaolin W/Heparinase Reaction Time (TEGECMOLIVER) 4.7 4.3 - 8.3 minutes 04/23/2025 1:06 PM EDT [facility] Citrated Kaolin Maximum Amplitude (TEGECMOLIVER) 51.3(L) 52.0 - 69.0 mm 04/23/2025 1:06 PM EDT [facility] Citrated Functional Fibrinogen W/Heparinase Maximum Amplitude(TEGEC MOLIVER) 17.2 15.0 - 34.0 mm 04/23/2025 1:06 PM EDT [facility] Citrated Rapid Teg W/Heparinase Maximum Amplitude (TEGECMOLIVER) 49.3(L) 53.0 - 69.0 mm 04/23/2025 1:06 PM EDT [facility] Citrated Kaolin w/Heparinase Percent Lysis (TEGECMOLIVER) 0.0 0.0 - 3.2 % 04/23/2025 1:06 PM EDT [facility] Whole Blood (Citrate) 04/23/2025 11:46 AM EDT 04/23/2025 11:51 AM EDT us Judith Murcia MD LAB BLOOD ORDERABLES Final Res ult Performing Organization Address [facility] Co de Phone Number [facility] [address] * (ABNORMAL) Free Calcium, Whole Blood (04/23/2025 11:46 AM EDT) Free Calcium, WB 5.49(H) 4.50 - 5.30 mg/dL 04/23/2025 11:57 AM EDT [facility] Blood, Arterial 04/23/2025 1 1:46 AM EDT 04/23/2025 11:54 AM EDT us Judith Murcia MD LAB BLOOD ORDERABLES Final Res ult Performing Organization Address [facility] Co de Phone Number [facility] [address] * (ABNORMAL) Blood Gas, Arterial, STAT (04/23/2025 11:46 AM EDT) O2 Sat, Arterial 99 04/23/2025 11:54 AM EDT [facility] FIO2 50% 04/23/2025 11:54 AM EDT [facility] pH, Arterial 7.31(L) 7.35 - 7.45 04/23/2025 11:54 AM EDT [facility] pCO2, Arterial 46(H) 35 - 45 mm Hg 04/23/2025 11:54 AM EDT [facility] pO2, Arterial 158(H) 80 - 100 mm Hg 04/23/2025 11:54 AM EDT [facility] HCO3, Arterial 23 22 - 26 mmol/L 04/23/2025 11:54 AM EDT [facility] CO2 Content,Arteri al 25 23 - 27 mmol/L 04/23/2025 11:54 AM EDT [facility] Base Excess, Arterial -3.1(L) -2.0 - 3.0 mmol/L 04/23/2025 11:54 AM EDT [facility] %HBO2, Arterial 98.1(H) 95.0 - 98.0 % 04/23/2025 11:54 AM EDT [facility] Carboxyhemoglo bin, Arterial 1.2 % 04/23/2025 11:54 AM EDT [facility] Comment: CARBOXYHEMOGLOBIN (CO) REFERENCE RANGES: Non-Smokers: <2 % Smokers: <8 % TOXIC: >20 % Methemoglobin, Arterial 0.0 0.0 - 1.5 % 04/23/2025 11:54 AM EDT [facility] Blood, Arterial 04/23/2025 1 1:46 AM EDT 04/23/2025 11:51 AM EDT us Judith Murcia MD LAB BLOOD ORDERABLES Final Res ult Performing Organization Address City/[facility] Co de Phone Number [facility] [address] [facility]. [address] * Magnesium (04/23/2025 11:46 AM EDT) Magnesium 2.3 1.5 - 2.5 mg/dL 04/23/2025 12:54 PM EDT [facility] Plasma 04/23/2025 11:4 6 AM EDT 04/23/2025 12:02 PM EDT us Gloria Chen MD LAB BLOOD ORDERABLES Final Resul t Performing Organization Address City/[facility] Co de Phone Number [facility] [address] [place] [address]. [address] * (ABNORMAL) Protime-INR (04/23/2025 11:30 AM EDT) Protime 16.2(H) 12.1 - 15.1 seconds 04/23/2025 12:02 PM EDT [facility] INR 1.2(H) 0.9 - 1.1 04/23/2025 12:02 PM EDT [facility] Comment: RECOMMENDED THERAPEUTIC RANGES USING INR : Stable oral anticoagulant therapy: 2.0 - 3.0 Mechanical prosthetic heart valve: 2.5 - 3.5 Recurrent acute myocardial infarction: 2.5 - 3.5 Plasma 04/23/2025 11:3 0 AM EDT 04/23/2025 11:43 AM EDT Jostin Hess MD LAB BLOOD ORDERABLES Final Result [facility] [address] * Lactic Acid (04/23/2025 11:30 AM EDT) Lactate 1.0 0.5 - 2.2 mmol/L 04/23/2025 12:09 PM EDT [facility] Plasma 04/23/2025 11:3 0 AM EDT 04/23/2025 11:43 AM EDT Jostin Hess MD LAB BLOOD ORDERABLES Final Result Performing Organization Address [facility] Co de Phone Number [facility] [address] * (ABNORMAL) Hepatic Function Panel (04/23/2025 11:30 AM EDT) Total Bilirubin 2.7(H) 0.0 - 1.5 mg/dL 04/23/2025 12:22 PM EDT [facility] Bilirubin, Direct 2.09(H) 0.00 - 0.40 mg/dL 04/23/2025 12:22 PM EDT [facility] AST 65(H) 13 - 39 U/L 04/23/2025 12:22 PM EDT [facility] ALT 78(H) 7 - 52 U/L 04/23/2025 12:22 PM EDT [facility] Alkaline Phosphatase 55 36 - 125 U/L 04/23/2025 12:22 PM EDT [facility] Total Protein 3.6(L) 6.4 - 8.9 g/dL 04/23/2025 12:22 PM EDT [facility] Albumin 2.3(L) 3.5 - 5.7 g/dL 04/23/2025 12:22 PM EDT [facility] Bilirubin, Indirect 0.61 0.00 - 1.10 mg/dL 04/23/2025 12:22 PM EDT [facility] Plasma 04/23/2025 11:3 0 AM EDT 04/23/2025 11:43 AM EDT Jostin Hess MD LAB BLOOD ORDERABLES Final Result [facility] [address] [place] [address], [facility] * (ABNORMAL) CBC (04/23/2025 11:30 AM EDT) WBC 5.0 3.8 - 10.8 10E3/uL 04/23/2025 1:02 PM EDT [facility] RBC 3.55(L) 3.80 - 5.10 10E6/uL 04/23/2025 1:02 PM EDT [facility] Hemoglobin 10.7(L) 11.7 - 15.5 g/dL 04/23/2025 1:02 PM EDT [facility] Hematocrit 30.5(L) 35.0 - 45.0 % 04/23/2025 1:02 PM EDT [facility] MCV 86.0 80.0 - 100.0 fL 04/23/2025 1:02 PM EDT [facility] MCH 30.2 27.0 - 33.0 pg 04/23/2025 1:02 PM EDT [facility] MCHC 35.1 32.0 - 36.0 g/dL 04/23/2025 1:02 PM EDT [facility] RDW 16.5(H) 11.0 - 15.0 % 04/23/2025 1:02 PM EDT [facility] Platelets 47(L) 140 - 400 10E3/uL 04/23/2025 1:02 PM EDT [facility] Comment:CNV MPV 9.2 7.5 - 11.5 fL 04/23/2025 1:02 PM EDT [facility] Whole Blood 04/23/2025 11:3 0 AM EDT 04/23/2025 12:02 PM EDT Jostin Hess MD LAB BLOOD ORDERABLES Final Result [facility] [address] [place] [address], [facility] * (ABNORMAL) Renal Function Panel w/EGFR (04/23/2025 11:30 AM EDT) Sodium 137 133 - 146 mmol/L 04/23/2025 12:22 PM EDT [facility] Potassium 5.1 3.5 - 5.3 mmol/L 04/23/2025 12:22 PM EDT [facility] Chloride 106 98 - 110 mmol/L 04/23/2025 12:22 PM EDT [facility] CO2 26 21 - 33 mmol/L 04/23/2025 12:22 PM EDT [facility] Comment:High lactate dehydro genase concentrations in patient samples may cause falsely increased bicarbonate results. If markedly elevated LDH is observed or suspected, please assess results in conjunction with patient`s clinical presentation. In cases of discrepant results, consider evaluating CO2 in with a blood gas order. Anion Gap 5 3 - 16 mmol/L 04/23/2025 12:22 PM EDT [facility] BUN 30(H) 7 - 25 mg/dL 04/23/2025 12:22 PM EDT [facility] Creatinine 0.99 0.60 - 1.30 mg/dL 04/23/2025 12:22 PM EDT [facility] Glucose 159(H) 70 - 100 mg/dL 04/23/2025 12:22 PM EDT [facility] Calcium 8.8 8.6 - 10.3 mg/dL 04/23/2025 12:22 PM EDT [facility] Phosphorus 5.0(H) 2.1 - 4.7 mg/dL 04/23/2025 12:22 PM EDT [facility] Albumin 2.3(L) 3.5 - 5.7 g/dL 04/23/2025 12:22 PM EDT [facility] Osmolality, Calculated 294 278 - 305 mOsm/kg 04/23/2025 12:22 PM EDT [facility] EGFR 76 04/23/2025 12:22 PM EDT [facility] Comment:As of 2021, the estimated [...] be reported as >90mL/min/1.73m2. Reference: Usama C, eHrnandez M, Chato [place], Suzy [place], Jyoti [place], Nas [place], et al. A Unifying Approach for GFR Estimation: Recommendations of the NKF-ASN Task Force on Reassessing the inclusion of Race in Diagnosing Kidney Disease. Am J Kidney Dis. 2020. Plasma 04/23/2025 11:3 0 AM EDT 04/23/2025 11:43 AM EDT Jostin Hess MD LAB BLOOD ORDERABLES Final Result Performing Organization Address City/[facility]/ZIP Co de Phone Number [facility] [address] [facility]. [address] * Magnesium (04/23/2025 11:30 AM EDT) Pathologist [facility] Magnesium 2.4 1.5 - 2.5 mg/dL 04/23/2025 12:22 PM EDT [facility] Plasma 04/23/2025 11:3 0 AM EDT 04/23/2025 11:43 AM EDT Jostin Hess MD LAB BLOOD ORDERABLES Final Result [facility] [address] [facility]. [address] * (ABNORMAL) POC Glucose Monitoring Device (04/23/2025 11:29 AM EDT) POC Glucose Monitoring Device 159(H) 70 - 100 mg/dL 04/23/2025 11:30 AM EDT [facility] Blood 04/23/2025 11:2 9 AM EDT 04/23/2025 11:30 AM EDT Ludin Jose MD POINT OF CARE TEST ORDERABLES Fi nal Result [facility] [address] * Prepare Fresh Frozen Plasma, 4 Units (04/23/2025 11:13 AM EDT) Pathologist New Product Code S0047R18 [facility] Unit Number [id number] [facility] Dispense Status Released from Crossmatch_RE [facility] Blood Expiration Date [facility] Coding System [id number] [facility] Product Code Y6518S40 [facility] Unit Number [id number] [facility] Dispense Status Released from Crossmatch_RE [facility] Blood Expiration Date [facility] Coding System [id number] [facility] Product Code K5601C18 [facility] Unit Number [id number] [facility] Dispense Status Released from Crossmatch_RE [facility] Blood Expiration Date [facility] Coding System QPOH868 [facility] Product Code H2441I03 [facility] Unit Number [id number] [facility] Dispense Status Released from Crossmatch_RE [facility] Blood Expiration Date [facility] Coding System MDQG826 [facility] Product Code P0987P98 [facility] Unit Number [id number] [facility] Dispense Status Released from Crossmatch_RE [facility] Blood Expiration Date [facility] Coding System PLVJ388 [facility] Product Code K1826O48 [facility] Unit Number [id number] [facility] Dispense Status Released from Crossmatch_RE [facility] Blood Expiration Date [facility] Coding System SWWE619 [facility] Blood Bank Product Catracho Hui MD BLOOD BANK PRODUCT ORDERAB LES Final Result [facility] * Transfuse RBC Transfusion Rate: Per dept routine (04/23/2025 10:50 AM EDT) Gloria Chen MD NURSING TREATMENT ORDERABLES - B LOOD ADMIN Final Result EXTERNAL * Routine Culture plus Stain (Surgical Swab) (04/23/2025 9:53 AM EDT) Gram Stain Result Rare Polymorphonuclear Leukocytes Seen [facility] Gram Stain Result No Organisms Seen; [facility] Culture Result No Growth After 3 Days [facility] Swab (specimen) ABDOMEN / Unknown 9:53 AM EDT Comment:Ascities fluid swab Narrative [facility] - 04/26/2025 8:57 AM EST Ascities fluid swab Ascities fluid swab 1 Alejandra Wilson MD MICROBIOLOGY - GENERAL ORDER RANDALL Final Result Performing Organization Address [facility] Co de Phone Number [facility] [address] [facility]. [address] * Fungus culture (Surgical Swab) (04/23/2025 9:53 AM EDT) Culture Result No Fungus Isolated At 4 Weeks [facility] Swab (specimen) ABDOMEN / Unknown 9:53 AM EDT Comment:Ascities fluid swab Narrative [facility] - 05/23/2025 8:20 AM EST Ascities fluid swab Ascities fluid swab 1 Alejandra Wilson MD MICROBIOLOGY - GENERAL ORDER RANDALL Final Result Performing Organization Address City/[facility]/ZIP Co de Phone Number [facility] [address] * Anaerobic culture (Surgical Swab) (04/23/2025 9:53 AM EDT) Culture Result No Anaerobes Isolated in 5 Days [facility] Swab (specimen) ABDOMEN / Unknown 025 9:53 AM EDT Comment:Ascities fluid swab Narrative [facility] - 04/28/2025 12:31 PM EST Ascities fluid swab Ascities fluid swab 1 us Alejandra Wilson MD MICROBIOLOGY - GENERAL ORDER RANDALL Final Result [facility] [address] * TEG-Bypass/ECMO/Liver HN (Factor function, Platelet/Fibrin Clot Strength w/Clot Breakdown, Heparinase In All Channels) (04/23/2025 9:37 AM EDT) [facility] Citrated Kaolin Reaction Time (TEGECMOLIVER) 5.6 4.6 - 9.1 minutes 04/23/2025 10:51 AM EDT [facility] Citrated Kaolin W/Heparinase Reaction Time (TEGECMOLIVER) 4.7 4.3 - 8.3 minutes 04/23/2025 10:51 AM EDT [facility] Citrated Kaolin Maximum Amplitude (TEGECMOLIVER) 58.2 52.0 - 69.0 mm 04/23/2025 10:51 AM EDT [facility] Citrated Functional Fibrinogen W/Heparinase Maximum Amplitude(TEGEC MOLIVER) 18.0 15.0 - 34.0 mm 04/23/2025 10:51 AM EDT [facility] Citrated Rapid Teg W/Heparinase Maximum Amplitude (TEGECMOLIVER) 54.9 53.0 - 69.0 mm 04/23/2025 10:51 AM EDT [facility] Citrated Kaolin w/Heparinase Percent Lysis (TEGECMOLIVER) 0.0 0.0 - 3.2 % 04/23/2025 10:51 AM EDT [facility] Whole Blood (Citrate) 04/23/2025 9:37 AM EDT 04/23/2025 9:46 AM EDT Catracho Hui MD LAB BLOOD ORDERABLES Final Result [facility] [address] [place] [address], [facility] * (ABNORMAL) Arterial Blood Gas Panel (04/23/2025 9:37 AM EDT) O2Sat (ABGP) 99 04/23/2025 9:50 AM EDT [facility] pH (ABGP) 7.34(L) 7.35 - 7.45 04/23/2025 9:50 AM EDT [facility] PCO2 (ABGP) 43 35 - 45 mm Hg 04/23/2025 9:50 AM EDT [facility] PO2 (ABGP) 179(H) 80 - 100 mm Hg 04/23/2025 9:50 AM EDT [facility] HCO3 (ABGP) 23 22 - 26 mmol/L 04/23/2025 9:50 AM EDT [facility] CO2 Content (ABGP) 25 23 - 27 mmol/L 04/23/2025 9:50 AM EDT [facility] Base Excess (ABGP) -2.5(L) -2.0 - 3.0 mmol/L 04/23/2025 9:50 AM EDT [facility] Sodium (ABGP) 133(L) 136 - 146 mEq/L 04/23/2025 9:50 AM EDT [facility] Potassium (ABGP) 5.1(H) 3.5 - 5.0 mEq/L 04/23/2025 9:50 [facility] Comment:In the event of in-v itro hemolysis, potassium results may be falsely elevated. Always interpret lab results in conjunction with clinical findings. If hemolysis is suspected, a serum sample may be collected for repeat assessment of potassium. Calcium, Free (ABGP) 4.56 4.50 - 5.30 mg/dL 04/23/2025 9:50 AM EDT [facility] Glucose (ABGP) 157(H) 70 - 100 mg/dL 04/23/2025 9:50 AM [facility] Comment:There is interferenc e with whole blood glucose results on this method when Hematocrit is <25% or >60%. HCT (ABGP) 27.0(L) 35.0 - 45.0 % 04/23/2025 9:50 AM EDT [facility] HGB (ABGP) 9.0(L) 12.0 - 16.0 g/dL 04/23/2025 9:50 AM EDT [facility] %HBO2 (ABGP) 97.8 95.0 - 98.0 % 04/23/2025 9:50 AM EDT [facility] Carboxyhgb (ABGP) 1.4 % 025 9:50 AM EDT [facility] Comment: CARBOXYHEMOGLOBIN (CO) REFERENCE RANGES: Non-Smokers: <2 % Smokers: <8 % TOXIC: >20 % Methemoglobin (ABGP) 0.0 0.0 - 1.5 % 04/23/2025 9:50 AM EDT [facility] Lactic Acid (ABGP) 1.7(H) 0.5 - 1.6 mmol/L 04/23/2025 9:50 AM EDT [facility] Blood, Arterial 04/23/2025 9 :37 AM EDT 04/23/2025 9:46 AM EDT us Catracho Hui MD LAB BLOOD ORDERABLES Final Result [facility] [address] * Transfuse RBC Transfusion Rate: Per dept routine (04/23/2025 9:02 AM EDT) us Moe Luis MD NURSING TREATMENT ORDE [facility] - BLOOD ADMIN Final Result Performing Organization Address City/[facility]/ZIP Co de Phone Number EXTERNAL * XR Portable Feeding Tube Check [...] Crawford MD at 04/23/2025 9:50 AM EDT Moe Luis MD IMG DIAGNOSTIC IMAGING ORDERABLES [...] Chavarria DO at 04/23/2025 11:08 AM EDT Julius Becerra MD IM DIAGNOSTIC IMAGING ORDERABLE S Final Result * TEG-Bypass/ECMO/Liver HN (Factor function, Platelet/Fibrin Clot Strength w/Clot Breakdown, Heparinase In All Channels) (04/23/2025 8:31 AM EDT) [facility] Citrated Kaolin Reaction Time (TEGECMOLIVER) 6.4 4.6 - 9.1 minutes 04/23/2025 9:39 AM EDT [facility] Citrated Kaolin W/Heparinase Reaction Time (TEGECMOLIVER) 5.5 4.3 - 8.3 minutes 04/23/2025 9:39 AM EDT [facility] Citrated Kaolin Maximum Amplitude (TEGECMOLIVER) 63.3 52.0 - 69.0 mm 04/23/2025 9:39 AM EDT [facility] Citrated Functional Fibrinogen W/Heparinase Maximum Amplitude(TEGEC MOLIVER) 20.8 15.0 - 34.0 mm 04/23/2025 9:39 AM EDT [facility] Citrated Rapid Teg W/Heparinase Maximum Amplitude (TEGECMOLIVER) 60.0 53.0 - 69.0 mm 04/23/2025 9:39 AM EDT [facility] Citrated Kaolin w/Heparinase Percent Lysis (TEGECMOLIVER) 0.0 0.0 - 3.2 % 04/23/2025 9:39 AM EDT [facility] Whole Blood (Citrate) 04/23/2025 8:31 AM EDT 04/23/2025 8:34 AM EDT us Julius Becerra MD LAB BLOOD ORDERABLES Final Resul t [facility] [address] [id number] * (ABNORMAL) CBC (04/23/2025 8:31 AM EDT) WBC 6.6 3.8 - 10.8 10E3/uL 04/23/2025 9:22 AM EDT [facility] RBC 2.22(L) 3.80 - 5.10 10E6/uL 04/23/2025 9:22 AM EDT [facility] Hemoglobin 6.7(L) 11.7 - 15.5 g/dL 04/23/2025 9:22 AM EDT [facility] Hematocrit 18.5(L) 35.0 - 45.0 % 04/23/2025 9:22 AM EDT [facility] MCV 83.4 80.0 - 100.0 fL 04/23/2025 9:22 AM EDT [facility] MCH 30.1 27.0 - 33.0 pg 04/23/2025 9:22 AM EDT [facility] MCHC 36.1(H) 32.0 - 36.0 g/dL 04/23/2025 9:22 AM EDT [facility] RDW 16.7(H) 11.0 - 15.0 % 04/23/2025 9:22 AM EDT [facility] Platelets 85(L) 140 - 400 10E3/uL 04/23/2025 9:22 AM EDT [facility] MPV 9.3 7.5 - 11.5 fL 04/23/2025 9:22 AM EDT [facility] Whole Blood 04/23/2025 8:31 AM EDT 04/23/2025 8:50 AM EDT us Julius Becerra MD LAB BLOOD ORDERABLES Final Resul t [facility] [address] [place] [address], [facility] * TEG-Bypass/ECMO/Liver HN (Factor function, Platelet/Fibrin Clot Strength w/Clot Breakdown, Heparinase In All Channels) (04/23/2025 7:45 AM EDT) [facility] Citrated Kaolin Reaction Time (TEGECMOLIVER) 5.6 4.6 - 9.1 minutes 04/23/2025 9:05 AM EDT [facility] Citrated Kaolin W/Heparinase Reaction Time (TEGECMOLIVER) 4.4 4.3 - 8.3 minutes 04/23/2025 9:05 AM EDT [facility] Citrated Kaolin Maximum Amplitude (TEGECMOLIVER) 63.6 52.0 - 69.0 mm 04/23/2025 9:05 AM EDT [facility] Citrated Functional Fibrinogen W/Heparinase Maximum Amplitude(TEGEC MOLIVER) 21.1 15.0 - 34.0 mm 04/23/2025 9:05 AM EDT [facility] Citrated Rapid Teg W/Heparinase Maximum Amplitude (TEGECMOLIVER) 61.0 53.0 - 69.0 mm 04/23/2025 9:05 AM EDT [facility] Citrated Kaolin w/Heparinase Percent Lysis (TEGECMOLIVER) 0.0 0.0 - 3.2 % 04/23/2025 9:05 AM EDT [facility] Whole Blood (Citrate) 04/23/2025 7:45 AM EDT 04/23/2025 7:55 AM EDT us Julius Becerra MD LAB BLOOD ORDERABLES Final Resul t [facility] [address] * (ABNORMAL) Blood gas, arterial (04/23/2025 7:45 AM EDT) O2 Sat, Arterial 99 04/23/2025 8:00 AM EDT [facility] FIO2 60% 04/23/2025 8:00 AM EDT [facility] pH, Arterial 7.36 7.35 - 7.45 04/23/2025 8:00 AM EDT [facility] pCO2, Arterial 42 35 - 45 mm Hg 04/23/2025 8:00 AM EDT [facility] pO2, Arterial 119(H) 80 - 100 mm Hg 04/23/2025 8:00 AM EDT [facility] HCO3, Arterial 24 22 - 26 mmol/L 04/23/2025 8:00 AM EDT [facility] CO2 Content,Arteri al 25 23 - 27 mmol/L 04/23/2025 8:00 AM EDT [facility] Base Excess, Arterial -1.6 -2.0 - 3.0 mmol/L 04/23/2025 8:00 AM EDT [facility] %HBO2, Arterial 96.9 95.0 - 98.0 % 04/23/2025 8:00 AM EDT [facility] Carboxyhemoglo bin, Arterial 1.4 % 04/23/2025 8:00 AM EDT [facility] Comment: CARBOXYHEMOGLOBIN (CO) REFERENCE RANGES: Non-Smokers: <2 % Smokers: <8 % TOXIC: >20 % Methemoglobin, Arterial 0.6 0.0 - 1.5 % 04/23/2025 8:00 AM EDT [facility] Blood, Arterial 04/23/2025 7 :45 AM EDT 04/23/2025 7:55 AM EDT Julius Becerra MD LAB BLOOD ORDERABLES Final Resul t [facility] [address] * (ABNORMAL) Hemoglobin, Blood Gas (04/23/2025 7:45 AM EDT) Hgb, blood gas 6.6(L) 12.0 - 16.0 g/dL 04/23/2025 8:00 AM EDT [facility] Blood, Arterial 04/23/2025 7 :45 AM EDT 04/23/2025 7:55 AM EDT us Julius Becerra MD LAB BLOOD ORDERABLES Final Resul t Performing Organization Address [facility] Co de Phone Number [facility] [address] [place] [address] * Lactic acid, ABG (04/23/2025 7:45 AM EDT) Pathologist [facility] Lactate, Art 1.6 0.5 - 1.6 mmol/L 04/23/2025 8:00 AM EDT [facility] Blood, Arterial 04/23/2025 7 :45 AM EDT 04/23/2025 7:55 AM EDT us Julius Becerra MD LAB BLOOD ORDERABLES Final Resul t Performing Organization Address [facility] de Phone Number [facility] [address] [place] [address] * Tacrolimus level (04/23/2025 7:45 AM EDT) [facility] Tacrolimus (LC-MS) 9.3 3.0 - 15.0 ng/mL 04/23/2025 12:16 PM EDT [facility] Comment:Performed via liquid chromatography tandem mass spectrometry. Detection limit: 1 ng/mL. Individual target concentrations may vary due to target organ and time after transplant. This test has been developed and its performance characteristics determined by [facility] which is certified under [...] ORDERABLES Final Resul t Performing Organization Address [facility] de Phone Number [facility] [address] [place], [place] [address] * Transfuse RBC Transfusion Rate: Per dept routine (04/23/2025 7:31 AM EDT) us Sergey Altman MD NURSING TREATMENT OR DERABLES - BLOOD ADMIN Final Result Performing Organization Address [facility] de Phone Number EXTERNAL * Transfuse RBC Transfusion Rate: Per dept routine, 1 Units (04/23/2025 7:31 AM EDT) us Sergey Altman MD NURSING TREATMENT OR DERABLES - BLOOD ADMIN Final Result Performing Organization Address [facility] de Phone Number EXTERNAL * SMALL BOWEL ENTEROSCOPY (04/23/2025 6:01 AM EDT) 04/23/2025 6:01 AM EDT Narrative [facility] - 04/23/2025 11:33 AM EDT [id number] Procedure Date: 04/23/2025 6:01 AM Patient Name: Mindy Wade Date of : 1990 Admit Type: Inpatient Age: 35 Gender: Female Note Status: Finalized Attending MD: Kelsey Moyer , , [id number] Procedure: Small bowel enteroscopy Indications: Melena Patient [...] by the physician, the nurse and the coroner forensic technician in the procedure room. Mental Status [...] the bleed. Procedure Code(s): --- Professional --- 56496, GC, Small intestinal endoscopy, enteroscopy beyond second portion of duodenum, not including ileum; diagnostic, including collection of specimen(s) by brushing or washing, when performed (separate procedure) Diagnosis Code(s): --- Professional --- K92.2, Gastrointestinal hemorrhage, unspecified K92.1, Melena (includes Hematochezia) CPT copyright 2022 [employer]. All rights reserved. The codes documented in this report are preliminary and upon food and beverage assistant review may be revised to meet current compliance requirements. Attending Participation: I was present and participated during the entire procedure from insertion to removal of the endoscope. Kelsey Moyer Kelsey Moyer, 04/23/2025 11:32:48 AM Mike Ventura Mike Nath Audrey, 04/23/2025 7:30:40 AM Total Procedure Duration Time 0 hours 51 minutes 31 seconds Scope In: 6:09:10 AM Scope Out: 7:00:[address] [place] [address], [facility] Ludin Jose MD PROCEDURE/MINOR SURGICAL ORDERAB LES Final Result [facility] * Prepare RBC, leukoreduced (04/23/2025 5:36 AM EDT) Product Code U6392Q77 HCLL Unit Number [id number] HCLL Dispense Status Released from Crossmatch_RE HCLL Blood Expiration Date HCLL Coding System [id number] HCLL Product Code I6971G29 HCLL Unit Number [id number] HCLL Dispense Status Released from Crossmatch_RE HCLL Blood Expiration Date HCLL Coding System GBZY353 HCLL Product Code O7116Y06 HCLL Unit Number [id number] HCLL Dispense Status Released from Crossmatch_RE HCLL Blood Expiration Date HCLL Coding System XHUO815 HCLL Product Code O9019Y14 HCLL Unit Number [id number] HCLL Dispense Status Released from Crossmatch_RE HCLL Blood Expiration Date HCLL Coding System OCTI969 HCLL Product Code A8401D22 HCLL Unit Number [id number] HCLL Dispense Status Released from Crossmatch_RE HCLL Blood Expiration Date HCLL Coding System PLCX291 HCLL Product Code R7062Y07 HCLL Unit Number [id number] HCLL Dispense Status Released from Crossmatch_RE HCLL Blood Expiration Date HCLL Coding System [id number] HCLL us Attending Provider Unknown BLOOD BANK PRODUCT OR DERABLES Final Result Performing Organization Address City/[facility]/ZIP Co de Phone Number HC[facility] * Prepare Fresh Frozen Plasma (04/23/2025 5:33 AM EDT) Product Code I4836A03 HCLL Unit Number [id number] HCLL Dispense Status Released from Crossmatch_RE HCLL Blood Expiration Date HCLL Coding System IYLY214 HCLL Product Code E9151S36 HCLL Unit Number [id number] HCLL Dispense Status Released from Crossmatch_RE HCLL Blood Expiration Date [id number] HCLL Coding System NUNC730 HCLL Product Code X0192G46 HCLL Unit Number [id number] HCLL Dispense Status Released from Crossmatch_RE HCLL Blood Expiration Date HCLL Coding System RIVY647 HCLL Product Code U7272O20 HCLL Unit Number [id number] HCLL Dispense Status Released from Crossmatch_RE HCLL Blood Expiration Date [id number] HCLL Coding System XNSV293 HCLL Product Code G6888K53 HCLL Unit Number [id number] HCLL Dispense Status Released from Crossmatch_RE HCLL Blood Expiration Date HCLL Coding System QMRF514 HCLL Product Code X7099K65 HCLL Unit Number [id number] HCLL Dispense Status Released from Crossmatch_RE HCLL Blood Expiration Date HCLL Coding System [id number] HCLL us Attending Provider Unknown BLOOD BANK PRODUCT OR DERABLES Final Result Performing Organization Address City/[facility]/ZIP Co de Phone Number HCLL * CENTRAL LINE SINGLE LUMEN PERFORMABLE [...] Insert Arterial Line (04/23/2025 4:53 AM EDT) Manuela Darnell MD - 04/23/2025 4:53 AM EDT Manuela Lang MD 04/23/2025 5:12 AM Insert Arterial Line Date/Time: 04/23/2025 4:53 AM Performed by: Drea Campbell MD Authorized by: Manuela Lang MD Consent: Consent obtained: Emergent situation [place] protocol: Patient identity confirmed: Hospital-assigned identification number [...] enough blood flow with catheter in place. us Manuela Lang MD IV THERAPY ORDERABLES Final Resu lt * Magnesium, STAT (04/23/2025 4:26 AM EDT) Magnesium 2.4 1.5 - 2.5 mg/dL 04/23/2025 5:09 AM EDT [facility] Plasma 04/23/2025 4:26 AM EDT 04/23/2025 4:40 AM EDT Sergey Altman MD LAB BLOOD ORDERABLES Final Result [facility] [address] [place], [place] [address] * (ABNORMAL) TEG-Bypass/ECMO/Liver HN (Factor function, Platelet/Fibrin Clot Strength w/Clot Breakdown, Heparinase In All Channels) (04/23/2025 4:26 AM EDT) Citrated Kaolin Reaction Time (TEGECMOLIVER) 6.3 4.6 - 9.1 minutes 04/23/2025 5:55 AM EDT [facility] Citrated Kaolin W/Heparinase Reaction Time (TEGECMOLIVER) 5.4 4.3 - 8.3 minutes 04/23/2025 5:55 AM EDT [facility] Citrated Kaolin Maximum Amplitude (TEGECMOLIVER) 48.6(L) 52.0 - 69.0 mm 04/23/2025 5:55 AM EDT [facility] Citrated Functional Fibrinogen W/Heparinase Maximum Amplitude(TEGEC MOLIVER) 11.0(L) 15.0 - 34.0 mm 04/23/2025 5:55 AM EDT [facility] Citrated Rapid Teg W/Heparinase Maximum Amplitude (TEGECMOLIVER) 45.5(L) 53.0 - 69.0 mm 04/23/2025 5:55 AM EDT [facility] Citrated Kaolin w/Heparinase Percent Lysis (TEGECMOLIVER) 0.0 0.0 - 3.2 % 04/23/2025 5:55 AM EDT [facility] Whole Blood (Citrate) 04/23/2025 4:26 AM EDT 04/23/2025 4:32 AM EDT Sergey Altman MD LAB BLOOD ORDERABLES Final Result [facility] [address] * (ABNORMAL) CBC, STAT (04/23/2025 4:26 AM EDT) WBC 11.4(H) 3.8 - 10.8 10E3/uL 04/23/2025 4:50 AM EDT [facility] RBC 3.32(L) 3.80 - 5.10 10E6/uL 04/23/2025 4:50 AM EDT [facility] Hemoglobin 9.6(L) 11.7 - 15.5 g/dL 04/23/2025 4:50 AM EDT [facility] Hematocrit 28.4(L) 35.0 - 45.0 % 04/23/2025 4:50 AM EDT [facility] MCV 85.4 80.0 - 100.0 fL 04/23/2025 4:50 AM EDT [facility] MCH 28.9 27.0 - 33.0 pg 04/23/2025 4:50 AM EDT [facility] MCHC 33.9 32.0 - 36.0 g/dL 04/23/2025 4:50 AM EDT [facility] RDW 16.4(H) 11.0 - 15.0 % 04/23/2025 4:50 AM EDT [facility] Platelets 56(L) 140 - 400 10E3/uL 04/23/2025 4:50 AM EDT [facility] MPV 9.1 7.5 - 11.5 fL 04/23/2025 4:50 AM EDT [facility] Whole Blood 04/23/2025 4:26 AM EDT 04/23/2025 4:40 AM EDT Sergey Altman MD LAB BLOOD ORDERABLES Final Result [facility] [address] * Calcium Free, Serum (04/23/2025 4:26 AM EDT) Free Calcium, Ser 4.79 4.40 - 5.40 mg/dL 04/23/2025 5:05 AM EDT [facility] Comment:Free calcium levels vary inversely with pH by approximately 5% for each 0.1 unit of pH change. Assay results have been normalized to pH = 7.40. Serum 04/23/2025 4:26 AM EDT 04/23/2025 4:40 AM EDT Narrative [facility] - 04/23/2025 5:05 AM EDT This test has been developed and its performance characteristics determined by [facility] which is certified under [...] Altman MD LAB BLOOD ORDERABLES Final Result [facility] [address] * (ABNORMAL) Hepatic Function Panel, STAT (04/23/2025 4:26 AM EDT) Pathologist [facility] Total Bilirubin 1.4 0.0 - 1.5 mg/dL 04/23/2025 5:09 AM EDT [facility] Bilirubin, Direct 0.92(H) 0.00 - 0.40 mg/dL 04/23/2025 5:09 AM EDT [facility] AST 59(H) 13 - 39 U/L 04/23/2025 5:09 AM EDT [facility] ALT 81(H) 7 - 52 U/L 04/23/2025 5:09 AM EDT [facility] Alkaline Phosphatase 63 36 - 125 U/L 04/23/2025 5:09 AM EDT [facility] Total Protein 3.4(L) 6.4 - 8.9 g/dL 04/23/2025 5:09 AM EDT [facility] Albumin 2.2(L) 3.5 - 5.7 g/dL 04/23/2025 5:09 AM EDT [facility] Bilirubin, Indirect 0.48 0.00 - 1.10 mg/dL 04/23/2025 5:09 AM EDT [facility] Plasma 04/23/2025 4:26 AM EDT 04/23/2025 4:40 AM EDT Sergey Altman MD LAB BLOOD ORDERABLES Final Result [facility] [address] [place], [place] [address] * (ABNORMAL) Renal Function Panel w/EGFR, STAT (04/23/2025 4:26 AM EDT) Sodium 137 133 - 146 mmol/L 04/23/2025 5:09 AM EDT [facility] Potassium 4.6 3.5 - 5.3 mmol/L 04/23/2025 5:09 AM EDT [facility] Chloride 109 98 - 110 mmol/L 04/23/2025 5:09 AM EDT [facility] CO2 23 21 - 33 mmol/L 04/23/2025 5:09 AM EDT [facility] Comment:High lactate dehydro genase concentrations in patient samples may cause falsely increased bicarbonate results. If markedly elevated LDH is observed or suspected, please assess results in conjunction with patient`s clinical presentation. In cases of discrepant results, consider evaluating CO2 in with a blood gas order. Anion Gap 5 3 - 16 mmol/L 04/23/2025 5:09 AM EDT [facility] BUN 39(H) 7 - 25 mg/dL 04/23/2025 5:09 AM EDT [facility] Creatinine 1.32(H) 0.60 - 1.30 mg/dL 04/23/2025 5:09 AM EDT [facility] Glucose 152(H) 70 - 100 mg/dL 04/23/2025 5:09 AM EDT [facility] Calcium 8.1(L) 8.6 - 10.3 mg/dL 04/23/2025 5:09 AM EDT [facility] Phosphorus 7.0(H) 2.1 - 4.7 mg/dL 04/23/2025 5:09 AM EDT [facility] Albumin 2.2(L) 3.5 - 5.7 g/dL 04/23/2025 5:09 AM EDT [facility] Osmolality, Calculated 296 278 - 305 mOsm/kg 04/23/2025 5:09 AM EDT [facility] EGFR 54 04/23/2025 5:09 AM EDT [facility] Comment:As of 2021, the estimated [...] BLOOD ORDERABLES Final Result Performing Organization Address City/[facility]/ZIP Co de Phone Number [facility] [address] * Lactic Acid, STAT (04/23/2025 4:26 AM EDT) Lactate 1.3 0.5 - 2.2 mmol/L 04/23/2025 5:05 AM EDT [facility] Plasma 04/23/2025 4:26 AM EDT 04/23/2025 4:40 AM EDT us Sergey Altman MD LAB BLOOD ORDERABLES Final Result [facility] [address] * (ABNORMAL) Sodium, Blood Gas (04/23/2025 4:26 AM EDT) Sodium, Blood Gas 131(L) 136 - 146 mEq/L 04/23/2025 4:37 AM EDT [facility] Blood, Arterial 04/23/2025 4 :26 AM EDT 04/23/2025 4:32 AM EDT Sergey Altman MD LAB BLOOD ORDERABLES Final Result Performing Organization Address [facility] Co de Phone Number [facility] [address] [facility]. [address] * Potassium, Blood Gas (04/23/2025 4:26 AM EDT) Potassium, Blood Gas 4.6 3.5 - 5.0 mEq/L 04/23/2025 4:37 AM EDT [facility] Comment:In the event of in-v itro hemolysis, potassium results may be falsely elevated. Always interpret lab results in conjunction with clinical findings. If hemolysis is suspected, a serum sample may be collected for repeat assessment of potassium. Blood, Arterial 04/23/2025 4 :26 AM EDT 04/23/2025 4:32 AM EDT Sergey Altman MD LAB BLOOD ORDERABLES Final Result Performing Organization Address [facility] Co de Phone Number [facility] [address] [facility]. [address] * Lactic acid, ABG (04/23/2025 4:26 AM EDT) Lactate, Art 1.3 0.5 - 1.6 mmol/L 04/23/2025 4:37 AM EDT [facility] Blood, Arterial 04/23/2025 4 :26 AM EDT 04/23/2025 4:32 AM EDT Sergey Altman MD LAB BLOOD ORDERABLES Final Result Performing Organization Address [facility] Co de Phone Number [facility] [address] * (ABNORMAL) Hemoglobin, Blood Gas (04/23/2025 4:26 AM EDT) Hgb, blood gas 9.9(L) 12.0 - 16.0 g/dL 04/23/2025 4:37 AM EDT [facility] Blood, Arterial 04/23/2025 4 :26 AM EDT 04/23/2025 4:32 AM EDT Sergey Altman MD LAB BLOOD ORDERABLES Final Result Performing Organization Address [facility] Co de Phone Number [facility] [address] [facility]. [address] * (ABNORMAL) Hematocrit, Blood Gas (04/23/2025 4:26 AM EDT) Hct, blood gas 30.0(L) 35.0 - 45.0 % 04/23/2025 4:37 AM EDT [facility] Blood, Arterial 04/23/2025 4 :26 AM EDT 04/23/2025 4:32 AM EDT Sergey Altman MD LAB BLOOD ORDERABLES Final Result Performing Organization Address [facility] Co de Phone Number [facility] [address] [facility]. [address] * Calcium Ionized, Whole Blood (04/23/2025 4:26 AM EDT) Free Calcium, WB 5.15 4.50 - 5.30 mg/dL 04/23/2025 4:37 AM EDT [facility] Blood, Arterial 04/23/2025 4 :26 AM EDT 04/23/2025 4:32 AM EDT Sergey Altman MD LAB BLOOD ORDERABLES Final Result [facility] [address] * (ABNORMAL) Blood gas, arterial (04/23/2025 4:26 AM EDT) O2 Sat, Arterial 98 04/23/2025 4:38 AM EDT [facility] FIO2 60 04/23/2025 4:39 AM EDT [facility] pH, Arterial 7.14(LL) 7.35 - 7.45 04/23/2025 4:38 AM EDT [facility] Comment:Critical value was p reviously called. pCO2, Arterial 61(H) 35 - 45 mm Hg 04/23/2025 4:38 AM EDT [facility] pO2, Arterial 122(H) 80 - 100 mm Hg 04/23/2025 4:38 AM EDT [facility] HCO3, Arterial 19(L) 22 - 26 mmol/L 04/23/2025 4:38 AM EDT [facility] CO2 Content,Arteria l 23 23 - 27 mmol/L 04/23/2025 4:38 AM EDT [facility] Base Excess, Arterial -8.3(L) -2.0 - 3.0 mmol/L 04/23/2025 4:38 AM EDT [facility] %HBO2, Arterial 96.2 95.0 - 98.0 % 04/23/2025 4:38 AM EDT [facility] Carboxyhemoglob in, Arterial 1.3 % 04/23/2025 4:38 AM EDT [facility] Comment: CARBOXYHEMOGLOBIN (CO) REFERENCE RANGES: Non-Smokers: <2 % Smokers: <8 % TOXIC: >20 % Methemoglobin, Arterial 0.8 0.0 - 1.5 % 04/23/2025 4:38 AM EDT [facility] Blood, Arterial 04/23/2025 4 :26 AM EDT 04/23/2025 4:32 AM EDT us Sergey Altman MD LAB BLOOD ORDERABLES Final Result [facility] [address] [place] [address], [facility] * (ABNORMAL) Protime-INR, AM (04/23/2025 4:26 AM EDT) Protime 18.1(H) 12.1 - 15.1 seconds 04/23/2025 4:57 AM EDT [facility] INR 1.4(H) 0.9 - 1.1 04/23/2025 4:57 AM EDT [facility] Comment: RECOMMENDED THERAPEUTIC RANGES USING INR : Stable oral anticoagulant therapy: 2.0 - 3.0 Mechanical prosthetic heart valve: 2.5 - 3.5 Recurrent acute myocardial infarction: 2.5 - 3.5 Plasma 04/23/2025 4:26 AM EDT 04/23/2025 4:35 AM EDT us Sergey Altman MD LAB BLOOD ORDERABLES Final Result [facility] [address] [place] * INTUBATION (04/23/2025 3:44 AM EDT) Narrative Manuela Lang MD - 04/23/2025 3:44 AM EDT Manuela Lang MD 04/23/2025 4:44 AM Intubation Date/Time: 04/23/2025 3:44 AM Performed by: Drea Campbell MD Authorized by: Manuela Lang MD Consent: Consent obtained: Emergent situation Alternatives discussed: No treatment and delayed treatment Holloway protocol: Patient identity confirmed: Hospital-assigned identification number [...] - 5.30 mg/dL 04/23/2025 3:03 AM EDT [facility] Blood, Arterial 04/23/2025 2 :54 AM EDT 04/23/2025 2:57 AM EDT Ludin Jose MD LAB BLOOD ORDERABLES Final Resul t [facility] [address] * (ABNORMAL) Arterial Blood Gas Panel (04/23/2025 2:54 AM EDT) O2Sat (ABGP) 100 04/23/2025 3:18 AM EDT [facility] FIO2 (ABGP) 100 04/23/2025 3:18 AM EDT [facility] pH (ABGP) 7.05(LL) 7.35 - 7.45 04/23/2025 3:18 AM EDT [facility] Comment: The critical result was called to, and read back by, licensed caregiver konstantin washington PCO2 (ABGP) 69(H) 35 - 45 mm Hg 04/23/2025 3:18 AM EDT [facility] PO2 (ABGP) 235(H) 80 - 100 mm Hg 04/23/2025 3:18 AM EDT [facility] HCO3 (ABGP) 16(L) 22 - 26 mmol/L 04/23/2025 3:18 AM EDT [facility] CO2 Content (ABGP) 21(L) 23 - 27 mmol/L 04/23/2025 3:18 AM EDT [facility] Base Excess (ABGP) -11.2(L) -2.0 - 3.0 mmol/L 04/23/2025 3:18 AM EDT [facility] Sodium (ABGP) 130(L) 136 - 146 mEq/L 04/23/2025 3:18 AM EDT [facility] Potassium (ABGP) 5.4(H) 3.5 - 5.0 mEq/L 04/23/2025 3:18 AM EDT [facility] Comment: In the event of [...] 4.50 - 5.30 mg/dL 04/23/2025 3:18 AM [facility] Glucose (ABGP) 165(H) 70 - 100 mg/dL 04/23/2025 3:18 AM [facility] Comment:There is interferenc e with whole blood glucose results on this method when Hematocrit is <25% or >60%. HCT (ABGP) 26.0(L) 35.0 - 45.0 % 04/23/2025 3:18 AM T [facility] HGB (ABGP) 8.8(L) 12.0 - 16.0 g/dL 04/23/2025 3:18 AM [facility] %HBO2 (ABGP) 98.4(H) 95.0 - 98.0 % 04/23/2025 3:[facility] Carboxyhgb (ABGP) 1.6 % 025 3:18 AM [facility] Comment: CARBOXYHEMOGLOBIN (CO) REFERENCE RANGES: Non-Smokers: <2 % Smokers: <8 % TOXIC: >20 % Methemoglobin (ABGP) 0.0 0.0 - 1.5 % 04/23/2025 3:18 AM EDT [facility] Lactic Acid (ABGP) 5.5(H) 0.5 - 1.6 mmol/L 04/23/2025 3:18 AM EDT [facility] Blood, Arterial 04/23/2025 2 :54 AM EDT 04/23/2025 2:57 AM EDT Narrative [facility] - 04/23/2025 3:18 AM EDT Specimen is beyond 15 minutes from time of collection. Results may be compromised. Review results critically. Specimen is beyond 15 minutes from time of collection. Results may be compromised. Review results critically. Ludin Jose MD LAB BLOOD ORDERABLES Final Resul t Performing Organization Address [facility] Co de Phone Number [facility] [address] * (ABNORMAL) Calcium Free, Serum (04/23/2025 2:23 AM EDT) Free Calcium, Ser 3.80(L) 4.40 - 5.40 mg/dL 04/23/2025 3:13 AM EDT [facility] Comment:Free calcium levels vary inversely with pH by approximately 5% for each 0.1 unit of pH change. Assay results have been normalized to pH = 7.40. Serum 04/23/2025 2:23 AM EDT 04/23/2025 2:35 AM EDT Narrative [facility] - 04/23/2025 3:13 AM EDT This test has been developed and its performance characteristics determined by [facility] which is certified under [...] BLOOD ORDERABLES Final Result Performing Organization Address City/[facility]/ZIP Co de Phone Number [facility] [address] * (ABNORMAL) TEG-Bypass/ECMO/Liver HN (Factor function, Platelet/Fibrin Clot Strength w/Clot Breakdown, Heparinase In All Channels) (04/23/2025 2:23 AM EDT) Citrated Kaolin Reaction Time (TEGECMOLIVER) 6.3 4.6 - 9.1 minutes 04/23/2025 3:50 AM EDT [facility] Citrated Kaolin W/Heparinase Reaction Time (TEGECMOLIVER) 5.1 4.3 - 8.3 minutes 04/23/2025 3:50 AM EDT [facility] Citrated Kaolin Maximum Amplitude (TEGECMOLIVER) 40.3(L) 52.0 - 69.0 mm 04/23/2025 3:50 AM EDT [facility] Citrated Functional Fibrinogen W/Heparinase Maximum Amplitude(TEGEC MOLIVER) <6.0(L) 15.0 - 34.0 mm 04/23/2025 3:50 AM EDT [facility] Citrated Rapid Teg W/Heparinase Maximum Amplitude (TEGECMOLIVER) 36.1(L) 53.0 - 69.0 mm 04/23/2025 3:50 AM EDT [facility] Citrated Kaolin w/Heparinase Percent Lysis (TEGECMOLIVER) 0.0 0.0 - 3.2 % 04/23/2025 3:50 AM EDT [facility] Whole Blood (Citrate) 04/23/2025 2:23 AM EDT 04/23/2025 2:35 AM EDT us Sergey Altman MD LAB BLOOD ORDERABLES Final Result [facility] [address] * Lactic Acid, STAT (04/23/2025 2:23 AM EDT) Lactate 1.9 0.5 - 2.2 mmol/L 04/23/2025 3:08 AM EDT [facility] Plasma 04/23/2025 2:23 AM EDT 04/23/2025 2:35 AM EDT Sergey Altman MD LAB BLOOD ORDERABLES Final Result [facility] [address] [place] [address], [facility] * (ABNORMAL) Renal Function Panel w/EGFR (04/23/2025 2:23 AM EDT) Sodium 134 133 - 146 mmol/L 04/23/2025 3:20 AM EDT [facility] Potassium 4.6 3.5 - 5.3 mmol/L 04/23/2025 3:20 AM EDT [facility] Chloride 107 98 - 110 mmol/L 04/23/2025 3:20 AM EDT [facility] CO2 22 21 - 33 mmol/L 04/23/2025 3:20 AM EDT [facility] Comment:High lactate dehydro genase concentrations in patient samples may cause falsely increased bicarbonate results. If markedly elevated LDH is observed or suspected, please assess results in conjunction with patient`s clinical presentation. In cases of discrepant results, consider evaluating CO2 in with a blood gas order. Anion Gap 5 3 - 16 mmol/L 04/23/2025 3:20 AM EDT [facility] BUN 39(H) 7 - 25 mg/dL 04/23/2025 3:20 AM EDT [facility] Creatinine 1.28 0.60 - 1.30 mg/dL 04/23/2025 3:20 AM EDT [facility] Glucose 140(H) 70 - 100 mg/dL 04/23/2025 3:20 AM EDT [facility] Calcium 6.3(LL) 8.6 - 10.3 mg/dL 04/23/2025 3:20 AM EDT [facility] Comment:Critical Result S_CA .3 Called to and read back by: ROBERT LANDRY RN at: 04/23/2025 03:20:32 by:[email or web address] Phosphorus 5.0(H) 2.1 - 4.7 mg/dL 04/23/2025 3:20 AM EDT [facility] Albumin 2.0(L) 3.5 - 5.7 g/dL 04/23/2025 3:20 AM EDT [facility] Osmolality, Calculated 290 278 - 305 mOsm/kg 04/23/2025 3:20 AM EDT [facility] EGFR 56 04/23/2025 3:20 AM EDT [facility] Comment:As of 2021, the estimated [...] Res ult Performing Organization Address [facility]/ZIP Co de Phone Number [facility] [address] * Magnesium (04/23/2025 2:23 AM EDT) Magnesium 1.9 1.5 - 2.5 mg/dL 04/23/2025 3:20 AM EDT [facility] Plasma 04/23/2025 2:23 AM EDT 04/23/2025 2:35 AM EDT Giovanny Louis MD LAB BLOOD ORDERABLES Final Res ult Performing Organization Address City/[facility]/ZIP Co de Phone Number [facility] [address] [facility]. [address] * (ABNORMAL) Hepatic Function Panel (04/23/2025 2:23 AM EDT) Total Bilirubin 1.3 0.0 - 1.5 mg/dL 04/23/2025 3:20 AM EDT [facility] Bilirubin, Direct 0.80(H) 0.00 - 0.40 mg/dL 04/23/2025 3:20 AM EDT [facility] AST 63(H) 13 - 39 U/L 04/23/2025 3:20 AM EDT [facility] ALT 89(H) 7 - 52 U/L 04/23/2025 3:20 AM EDT [facility] Alkaline Phosphatase 63 36 - 125 U/L 04/23/2025 3:20 AM EDT [facility] Total Protein <3.0(L) 6.4 - 8.9 g/dL 04/23/2025 3:20 AM EDT [facility] Albumin 2.0(L) 3.5 - 5.7 g/dL 04/23/2025 3:20 AM EDT [facility] Bilirubin, Indirect 0.50 0.00 - 1.10 mg/dL 04/23/2025 3:20 AM EDT [facility] Plasma 04/23/2025 2:23 AM EDT 04/23/2025 2:35 AM EDT us Gloria Chen MD LAB BLOOD ORDERABLES Final Resul t Performing Organization Address City/State/[facility] Co de Phone Number [facility] [address] * (ABNORMAL) CBC (04/23/2025 2:23 AM EDT) WBC 7.7 3.8 - 10.8 10E3/uL 04/23/2025 2:56 AM EDT [facility] RBC 2.86(L) 3.80 - 5.10 10E6/uL 04/23/2025 2:56 AM EDT [facility] Hemoglobin 8.6(L) 11.7 - 15.5 g/dL 04/23/2025 2:56 AM EDT [facility] Hematocrit 24.9(L) 35.0 - 45.0 % 04/23/2025 2:56 AM EDT [facility] MCV 87.3 80.0 - 100.0 fL 04/23/2025 2:56 AM EDT [facility] MCH 30.1 27.0 - 33.0 pg 04/23/2025 2:56 AM EDT [facility] MCHC 34.5 32.0 - 36.0 g/dL 04/23/2025 2:56 AM EDT [facility] RDW 14.6 11.0 - 15.0 % 04/23/2025 2:56 AM EDT [facility] Platelets 60(L) 140 - 400 10E3/uL 04/23/2025 2:56 AM EDT [facility] MPV 10.2 7.5 - 11.5 fL 04/23/2025 2:56 AM EDT [facility] Whole Blood 04/23/2025 2:23 AM EDT 04/23/2025 2:35 AM EDT us Giovanny Louis MD LAB BLOOD ORDERABLES Final Res ult [facility] [address] * (ABNORMAL) POC Glucose Monitoring Device (04/23/2025 12:26 AM EDT) POC Glucose Monitoring Device 241(H) 70 - 100 mg/dL 04/23/2025 12:27 AM EDT [facility] Blood 04/23/2025 12:2 6 AM EDT 04/23/2025 12:27 AM EDT Ludin Jose MD POINT OF CARE TEST ORDERABLES Fi nal Result [facility] [address] * (ABNORMAL) CBC, STAT (04/23/2025 12:03 AM EDT) WBC 7.0 3.8 - 10.8 10E3/uL 04/23/2025 1:08 AM EDT [facility] RBC 1.79(L) 3.80 - 5.10 10E6/uL 04/23/2025 1:08 AM EDT [facility] Hemoglobin 5.5(LL) 11.7 - 15.5 g/dL 04/23/2025 1:08 AM EDT [facility] Comment: Results verified by repeat analysis. Critical Result HGB:5.5 Called to and read back by: MARILEE RAMSEY RN at: 04/23/2025 01:08:31 by:LITA Hematocrit 16.1(L) 35.0 - 45.0 % 04/23/2025 1:08 AM EDT [facility] MCV 90.0 80.0 - 100.0 fL 04/23/2025 1:08 AM EDT [facility] MCH 30.7 27.0 - 33.0 pg 04/23/2025 1:08 AM EDT [facility] MCHC 34.1 32.0 - 36.0 g/dL 04/23/2025 1:08 AM EDT [facility] RDW 16.2(H) 11.0 - 15.0 % 04/23/2025 1:08 AM EDT [facility] Platelets 85(L) 140 - 400 10E3/uL 04/23/2025 1:08 AM EDT [facility] MPV 10.1 7.5 - 11.5 fL 04/23/2025 1:08 AM EDT [facility] Whole Blood 04/23/2025 12:0 3 AM EDT 04/23/2025 12:10 AM EDT us Sergey Altman MD LAB BLOOD ORDERABLES Final Result [facility] [address] [place] [address], [facility] * Antibody Screen (04/23/2025 12:03 AM EDT) Antibody Screen Negative 04/23/2025 12:59 AM EDT [facility] Blood 04/23/2025 12:0 3 AM EDT 04/23/2025 12:11 AM EDT Narrative [facility] - 04/23/2025 1:06 AM EDT Testing performed by [facility] Sergey Altman MD BLOOD BANK TEST ORDAlexsandra GARG Final Result [facility] [address] * ABO/Rh (04/23/2025 12:03 AM EDT) ABO Grouping O 04/23/2025 12:53 AM EDT [facility] Rh Type Positive 04/23/2025 12:53 AM EDT [facility] Blood 04/23/2025 12:0 3 AM EDT 04/23/2025 12:11 AM EDT Sergey Altman MD BLOOD BANK TEST ORDAlexsandra GARG Final Result Performing Organization Address City/[facility]/ZIP Co de Phone Number [facility] [address] * (ABNORMAL) Lactic Acid, STAT (04/22/2025 11:04 PM EDT) Lactate 2.7(H) 0.5 - 2.2 mmol/L 04/23/2025 12:17 AM EDT [facility] Plasma 04/22/2025 11:0 4 PM EDT 04/22/2025 11:12 PM EDT Sergey Altman MD LAB BLOOD ORDERABLES Final Result [facility] [address] [facility]. [address] * Magnesium, STAT (04/22/2025 11:04 PM EDT) Magnesium 2.0 1.5 - 2.5 mg/dL 04/23/2025 12:20 AM EDT [facility] Plasma 04/22/2025 11:0 4 PM EDT 04/22/2025 11:12 PM EDT Sergey Altman MD LAB BLOOD ORDERABLES Final Result [facility] [address] [place] [address], [facility] * (ABNORMAL) Renal Function Panel w/EGFR, STAT (04/22/2025 11:04 PM EDT) Sodium 133 133 - 146 mmol/L 04/23/2025 12:20 AM EDT [facility] Potassium 4.8 3.5 - 5.3 mmol/L 04/23/2025 12:20 AM EDT [facility] Chloride 106 98 - 110 mmol/L 04/23/2025 12:20 AM EDT [facility] CO2 23 21 - 33 mmol/L 04/23/2025 12:20 AM EDT [facility] Comment:High lactate dehydro genase concentrations in patient samples may cause falsely increased bicarbonate results. If markedly elevated LDH is observed or suspected, please assess results in conjunction with patient`s clinical presentation. In cases of discrepant results, consider evaluating CO2 in with a blood gas order. Anion Gap 4 3 - 16 mmol/L 04/23/2025 12:20 AM EDT [facility] BUN 40(H) 7 - 25 mg/dL 04/23/2025 12:20 AM EDT [facility] Creatinine 1.34(H) 0.60 - 1.30 mg/dL 04/23/2025 12:20 AM EDT [facility] Glucose 279(H) 70 - 100 mg/dL 04/23/2025 12:20 AM EDT [facility] Calcium 6.8(L) 8.6 - 10.3 mg/dL 04/23/2025 12:20 AM EDT [facility] Phosphorus 4.4 2.1 - 4.7 mg/dL 04/23/2025 12:20 AM EDT [facility] Albumin 2.5(L) 3.5 - 5.7 g/dL 04/23/2025 12:20 AM EDT [facility] Osmolality, Calculated 296 278 - 305 mOsm/kg 04/23/2025 12:20 AM EDT [facility] EGFR 53 04/23/2025 12:20 AM EDT [facility] Comment:As of 2021, the estimated [...] Altman MD LAB BLOOD ORDERABLES Final Result [facility] [address] * (ABNORMAL) CBC, STAT (04/22/2025 11:04 PM EDT) WBC 6.8 3.8 - 10.8 10E3/uL 04/22/2025 11:41 PM EDT [facility] RBC 2.02(L) 3.80 - 5.10 10E6/uL 04/22/2025 11:41 PM EDT [facility] Hemoglobin 6.1(L) 11.7 - 15.5 g/dL 04/22/2025 11:41 PM EDT [facility] Hematocrit 18.0(L) 35.0 - 45.0 % 04/22/2025 11:41 PM EDT [facility] MCV 89.1 80.0 - 100.0 fL 04/22/2025 11:41 PM EDT [facility] MCH 30.2 27.0 - 33.0 pg 04/22/2025 11:41 PM EDT [facility] MCHC 33.9 32.0 - 36.0 g/dL 04/22/2025 11:41 PM EDT [facility] RDW 16.5(H) 11.0 - 15.0 % 04/22/2025 11:41 PM EDT [facility] Platelets 88(L) 140 - 400 10E3/uL 04/22/2025 11:41 PM EDT [facility] Comment:Specimen checked for clots. None detected. MPV 10.0 7.5 - 11.5 fL 04/22/2025 11:41 PM EDT [facility] Whole Blood 04/22/2025 11:0 4 PM EDT 04/22/2025 11:12 PM EDT Sergey Altman MD LAB BLOOD ORDERABLES Final Result Performing Organization Address [facility] Co de Phone Number [facility] [address] * (ABNORMAL) POC Glucose Monitoring Device (04/22/2025 9:12 PM EDT) POC Glucose Monitoring Device 266(H) 70 - 100 mg/dL 04/22/2025 9:13 PM EDT [facility] Blood 04/22/2025 9:12 PM EDT 04/22/2025 9:13 PM EDT Ludin Jose MD POINT OF CARE TEST ORDERABLES Fi nal Result Performing Organization Address City/[facility]/ZIP Co de Phone Number [facility] [address] [facility]. [address] * (ABNORMAL) POC Glucose Monitoring Device (04/22/2025 4:33 PM EDT) POC Glucose Monitoring Device 171(H) 70 - 100 mg/dL 04/22/2025 4:34 PM EDT [facility] Blood 04/22/2025 4:33 PM EDT 04/22/2025 4:33 PM EDT Ludin Jose MD POINT OF CARE TEST ORDERABLES Fi nal Result Performing Organization Address [facility] Co de Phone Number [facility] [address] * (ABNORMAL) POC Glucose Monitoring Device (04/22/2025 12:05 PM EDT) POC Glucose Monitoring Device 114(H) 70 - 100 mg/dL 04/22/2025 12:06 PM EDT [facility] Blood 04/22/2025 12:0 5 PM EDT 04/22/2025 12:05 PM EDT Ludin Jose MD POINT OF CARE TEST ORDERABLES Fi nal Result Performing Organization Address [facility] de Phone Number [facility] [address] [facility]. [address] * (ABNORMAL) Tacrolimus level (04/22/2025 6:06 AM EDT) Tacrolimus (LC-MS) 15.6(H) 3.0 - 15.0 ng/mL 04/22/2025 10:47 AM EDT [facility] Comment:Performed via liquid chromatography tandem mass spectrometry. Detection limit: 1 ng/mL. Individual target concentrations may vary due to target organ and time after transplant. This test has been developed and its performance characteristics determined by [facility] which is certified under [...] ORDERABLES Final Resul t Performing Organization Address [facility] Co de Phone Number [facility] [address] [facility]. [address] * (ABNORMAL) Renal Function Panel w/EGFR (04/22/2025 6:06 AM EDT) Sodium 137 133 - 146 mmol/L 04/22/2025 7:51 AM EDT [facility] Potassium 4.2 3.5 - 5.3 mmol/L 04/22/2025 7:51 AM [facility] Chloride 108 98 - 110 mmol/L 04/22/2025 7:51 AM [facility] CO2 22 21 - 33 mmol/L 04/22/2025 7:51 AM [facility] [facility] Comment:High lactate dehydro genase concentrations in patient samples may cause falsely increased bicarbonate results. If markedly elevated LDH is observed or suspected, please assess results in conjunction with patient`s clinical presentation. In cases of discrepant results, consider evaluating CO2 in with a blood gas order. Anion Gap 7 3 - 16 mmol/L 04/22/2025 7:51 AM [facility] BUN 43(H) 7 - 25 mg/dL 04/22/2025 7:51 AM [facility] Creatinine 1.14 0.60 - 1.30 mg/dL 04/22/[facility]25 7:[facility] Glucose 80 70 - 100 mg/dL 04/22/2025 7:51 AM [facility] Calcium 7.7(L) 8.6 - 10.3 mg/dL 04/22/2025 7:51 AM [facility] Phosphorus 2.7 2.1 - 4.7 mg/dL 04/22/2025 7:51 AM [facility] Albumin 3.1(L) 3.5 - 5.7 g/dL 04/22/2025 7:51 AM [facility] Osmolality, Calculated 294 278 - 305 mOsm/kg 04/22/2025 7:51 AM EDT [facility] EGFR 64 04/22/2025 7:51 AM [facility] Comment:As of 2021, the estimated GFR [...] Res ult Performing Organization Address [facility]/ZIP Co de Phone Number [facility] [address] [facility]. [address] * (ABNORMAL) Magnesium (04/22/2025 6:06 AM EDT) Magnesium 2.7(H) 1.5 - 2.5 mg/dL 04/22/2025 7:51 AM EDT [facility] Plasma 04/22/2025 6:06 AM EDT 04/22/2025 6:43 AM EDT Giovanny Louis MD LAB BLOOD ORDERABLES Final Res ult Performing Organization Address [facility]/ZIP Co de Phone Number [facility] [address] [facility]. [address] * (ABNORMAL) Hepatic Function Panel (04/22/2025 6:06 AM EDT) Total Bilirubin 1.9(H) 0.0 - 1.5 mg/dL 04/22/2025 7:51 AM EDT [facility] Bilirubin, Direct 1.11(H) 0.00 - 0.40 mg/dL 04/22/2025 7:51 AM EDT [facility] AST 116(H) 13 - 39 U/L 04/22/2025 7:51 AM EDT [facility] ALT 144(H) 7 - 52 U/L 04/22/2025 7:51 AM EDT [facility] Alkaline Phosphatase 83 36 - 125 U/L 04/22/2025 7:51 AM EDT [facility] Total Protein 4.5(L) 6.4 - 8.9 g/dL 04/22/2025 7:51 AM EDT [facility] Albumin 3.1(L) 3.5 - 5.7 g/dL 04/22/2025 7:51 AM EDT [facility] Bilirubin, Indirect 0.79 0.00 - 1.10 mg/dL 04/22/2025 7:51 AM EDT [facility] Plasma 04/22/2025 6:06 AM EDT 04/22/2025 6:43 AM EDT us Gloria Chen MD LAB BLOOD ORDERABLES Final Resul t [facility] [address] [place] [address], [facility] * (ABNORMAL) CBC (04/22/2025 6:06 AM EDT) WBC 4.1 3.8 - 10.8 10E3/uL 04/22/2025 8:39 AM EDT [facility] RBC 3.13(L) 3.80 - 5.10 10E6/uL 04/22/2025 8:39 AM EDT [facility] Hemoglobin 9.6(L) 11.7 - 15.5 g/dL 04/22/2025 8:39 AM EDT [facility] Hematocrit 27.7(L) 35.0 - 45.0 % 04/22/2025 8:39 AM EDT [facility] MCV 88.5 80.0 - 100.0 fL 04/22/2025 8:39 AM EDT [facility] MCH 30.8 27.0 - 33.0 pg 04/22/2025 8:39 AM EDT [facility] MCHC 34.8 32.0 - 36.0 g/dL 04/22/2025 8:39 AM EDT [facility] RDW 16.3(H) 11.0 - 15.0 % 04/22/2025 8:39 AM EDT [facility] Platelets 48(L) 140 - 400 10E3/uL 04/22/2025 8:39 AM EDT [facility] Comment: CNV Specimen checked for clots. None detected. MPV 9.7 7.5 - 11.5 fL 04/22/2025 8:39 AM EDT [facility] Whole Blood 04/22/2025 6:06 AM EDT 04/22/2025 6:43 AM EDT Giovanny Louis MD LAB BLOOD ORDERABLES Final Res ult [facility] [address] [facility]. [address] * POC Glucose Monitoring Device (04/22/2025 5:58 AM EDT) POC Glucose Monitoring Device 80 70 - 100 mg/dL 04/22/2025 5:58 AM EDT [facility] Blood 04/22/2025 5:58 AM EDT 04/22/2025 5:58 AM EDT us Ludin Jose MD POINT OF CARE TEST ORDERABLES Fi nal Result Performing Organization Address [facility] Co de Phone Number [facility] [address] [facility]. [address] * (ABNORMAL) POC Glucose Monitoring Device (04/21/2025 11:19 PM EDT) POC Glucose Monitoring Device 109(H) 70 - 100 mg/dL 04/21/2025 11:19 PM EDT [facility] Blood 04/21/2025 11:1 9 PM EDT 04/21/2025 11:19 PM EDT us Ludin Jose MD POINT OF CARE TEST ORDERABLES Fi nal Result Performing Organization Address City/[facility] Co de Phone Number [facility] [address] [facility]. [address] * (ABNORMAL) POC Glucose Monitoring Device (04/21/2025 6:17 PM EDT) POC Glucose Monitoring Device 137(H) 70 - 100 mg/dL 04/21/2025 6:18 PM EDT [facility] Blood 04/21/2025 6:17 PM EDT 04/21/2025 6:18 PM EDT us Ludin Jose MD POINT OF CARE TEST ORDERABLES Fi nal Result [facility] [address] [place] [address], [facility] * VAS Venous Duplex Upper Left (04/21/2025 [...] - 100 mg/dL 04/21/2025 12:52 PM EDT [facility] Blood 04/21/2025 12:5 2 PM EDT 04/21/2025 12:52 PM EDT Ludin Jose MD POINT OF CARE TEST ORDERABLES Fi nal Result [facility] [address] * Osmolality, urine (04/21/2025 12:31 PM EDT) Osmolality, Ur 518 50 - 1,200 mOsm/kg 04/21/2025 2:35 PM EDT [facility] Urine 04/21/2025 12:3 1 PM EDT 04/21/2025 12:50 PM EDT [facility] URINE ORDERABLES Final Result [facility] [address] * Creatinine, urine, random (04/21/2025 12:31 PM EDT) Creatinine, Urine 45.10 mg/dL 04/21/2025 1:50 PM EDT [facility] Comment:Reference range not established for this test. Urine 04/21/2025 12:3 1 PM EDT 04/21/2025 12:50 PM EDT [facility] URINE ORDERABLES Final Result Performing Organization Address [facility]/ZIP Co de Phone Number [facility] [address] * Protein, Total urine, random (04/21/2025 12:31 PM EDT) Total Protein, Ur 29 mg/dL 04/21/2025 1:50 PM EDT [facility] Comment:Reference range not established for this test. Urine 04/21/2025 12:3 1 PM EDT 04/21/2025 12:50 PM EDT [facility] URINE ORDERABLES Final Result [facility] [address] * Sodium, urine, random (04/21/2025 12:31 PM EDT) Sodium, Ur 77 mmol/L 04/21/2025 1:50 PM EDT [facility] Comment:Reference range not established for this test. Urine 04/21/2025 12:3 1 PM EDT 04/21/2025 12:50 PM EDT us Marah Hull RATING CLERK URINE ORDERABLES Final Result [facility] [address] * US Abdomen Limited (04/21/2025 9:47 [...] EXAM: US ABDOMEN LIMITED EXAM: US DUPLEX [id number] COMPLETE INDICATION: Post-op liver transplant DATE: 04/21/2025 [...] EXAM: US ABDOMEN LIMITED EXAM: US DUPLEX [id number] COMPLETE INDICATION: Post-op liver transplant DATE: 04/21/2025 [...] Dick MD at 04/21/2025 6:27 PM EDT Marah Hull CNP [facility] [place] ORDERABLES Final Resul t * US Duplex [id number] Comp (04/21/2025 9:47 AM EDT) Anatomical Region [...] EXAM: US ABDOMEN LIMITED EXAM: US DUPLEX [id number] COMPLETE INDICATION: Post-op liver transplant DATE: 04/21/2025 [...] EXAM: US ABDOMEN LIMITED EXAM: US DUPLEX [id number] COMPLETE INDICATION: Post-op liver transplant DATE: 04/21/2025 [...] Dick MD at 04/21/2025 6:27 PM EDT Marah Hull CNP [facility] [place] ORDERABLES Final Resul t * (ABNORMAL) Renal Function Panel w/EGFR (04/21/2025 9:00 AM EDT) Sodium 136 133 - 146 mmol/L 04/21/2025 10:11 AM EDT [facility] Potassium 4.1 3.5 - 5.3 mmol/L 04/21/2025 10:11 AM EDT [facility] Chloride 109 98 - 110 mmol/L 04/21/2025 10:11 AM EDT [facility] CO2 21 21 - 33 mmol/L 04/21/2025 10:11 AM [facility] Comment:High lactate dehydro genase concentrations in patient samples may cause falsely increased bicarbonate results. If markedly elevated LDH is observed or suspected, please assess results in conjunction with patient`s clinical presentation. In cases of discrepant results, consider evaluating CO2 in with a blood gas order. Anion Gap 6 3 - 16 mmol/L 04/21/2025 10:11 AM [facility] BUN 64(H) 7 - 25 mg/dL 04/21/2025 10:11 AM [facility] Creatinine 1.40(H) 0.60 - 1.30 mg/dL 04/21/2025 10:11 AM [facility] Glucose 69(L) 70 - 100 mg/dL 04/21/2025 10:11 AM [facility] Calcium 7.4(L) 8.6 - 10.3 mg/dL 04/21/2025 10:11 AM [facility] Phosphorus 3.9 2.1 - 4.7 mg/dL 04/21/2025 10:11 AM [facility] Albumin 3.0(L) 3.5 - 5.7 g/dL 04/21/2025 10:11 AM [facility] Osmolality, Calculated 299 278 - 305 mOsm/kg 04/21/2025 10:11 AM [facility] EGFR 50 04/21/2025 10:11 AM [facility] Comment:As of 2021, the estimated GFR [...] LAB BLOOD ORDERABLES Final Res ult [facility] [address] [facility] * (ABNORMAL) Magnesium (04/21/2025 9:00 AM EDT) Magnesium 2.7(H) 1.5 - 2.5 mg/dL 04/21/2025 10:11 AM EDT [facility] Plasma 04/21/2025 9:00 AM EDT 04/21/2025 9:23 AM EDT us Giovanny Louis MD LAB BLOOD ORDERABLES Final Res ult Performing Organization Address [facility] Co de Phone Number [facility] [address] [facility] * (ABNORMAL) Hepatic Function Panel (04/21/2025 9:00 AM EDT) Total Bilirubin 1.6(H) 0.0 - 1.5 mg/dL 04/21/2025 10:11 AM EDT [facility] Bilirubin, Direct 0.91(H) 0.00 - 0.40 mg/dL 04/21/2025 10:11 AM EDT [facility] AST 122(H) 13 - 39 U/L 04/21/2025 10:11 AM EDT [facility] ALT 134(H) 7 - 52 U/L 04/21/2025 10:11 AM EDT [facility] Alkaline Phosphatase 56 36 - 125 U/L 04/21/2025 10:11 AM EDT [facility] Total Protein 4.5(L) 6.4 - 8.9 g/dL 04/21/2025 10:11 AM EDT [facility] Albumin 3.0(L) 3.5 - 5.7 g/dL 04/21/2025 10:11 AM EDT [facility] Bilirubin, Indirect 0.69 0.00 - 1.10 mg/dL 04/21/2025 10:11 AM EDT [facility] Plasma 04/21/2025 9:00 AM EDT 04/21/2025 9:23 AM EDT Gloria Chen MD LAB BLOOD ORDERABLES Final Resul t [facility] [address] [place] [address], [facility] * (ABNORMAL) CBC (04/21/2025 9:00 AM EDT) [facility] WBC 6.0 3.8 - 10.8 10E3/uL 04/21/2025 9:32 AM EDT [facility] RBC 3.17(L) 3.80 - 5.10 10E6/uL 04/21/2025 9:32 AM EDT [facility] Hemoglobin 9.7(L) 11.7 - 15.5 g/dL 04/21/2025 9:32 AM EDT [facility] Hematocrit 28.4(L) 35.0 - 45.0 % 04/21/2025 9:32 AM EDT [facility] MCV 89.5 80.0 - 100.0 fL 04/21/2025 9:32 AM EDT [facility] MCH 30.7 27.0 - 33.0 pg 04/21/2025 9:32 AM EDT [facility] MCHC 34.2 32.0 - 36.0 g/dL 04/21/2025 9:32 AM EDT [facility] RDW 16.6(H) 11.0 - 15.0 % 04/21/2025 9:32 AM EDT [facility] Platelets 49(L) 140 - 400 10E3/uL 04/21/2025 9:32 AM EDT [facility] Comment: CNV Specimen checked for clots. None detected. MPV 9.5 7.5 - 11.5 fL 04/21/2025 9:32 AM EDT [facility] Whole Blood 04/21/2025 9:00 AM EDT 04/21/2025 9:23 AM EDT Giovanny Louis MD LAB BLOOD ORDERABLES Final Res ult Performing Organization Address [facility]/ZIP Co de Phone Number [facility] [address] [facility]. [address] * Tacrolimus level (04/21/2025 9:00 AM EDT) Tacrolimus (LC-MS) 13.2 3.0 - 15.0 ng/mL 04/21/2025 2:34 PM EDT [facility] Comment:Performed via liquid chromatography tandem mass spectrometry. Detection limit: 1 ng/mL. Individual target concentrations may vary due to target organ and time after transplant. This test has been developed and its performance characteristics determined by [facility] which is certified under [...] Res ult Performing Organization Address [facility] Co de Phone Number [facility] [address] [facility]. [address] * (ABNORMAL) Protime-INR, STAT (04/21/2025 9:00 AM EDT) Protime 17.8(H) 12.1 - 15.1 seconds 04/21/2025 11:05 AM EDT [facility] INR 1.4(H) 0.9 - 1.1 04/21/2025 11:05 AM EDT [facility] Comment: RECOMMENDED THERAPEUTIC RANGES USING INR : Stable oral anticoagulant therapy: 2.0 - 3.0 Mechanical prosthetic heart valve: 2.5 - 3.5 Recurrent acute myocardial infarction: 2.5 - 3.5 Plasma 04/21/2025 9:00 AM EDT 04/21/2025 9:23 AM EDT Giovanny Louis MD LAB BLOOD ORDERABLES Final Res ult [facility] [address] [place] [address], [facility] * Insert PICC line (04/21/2025 8:37 AM EDT) Narrative Chava Mcgraw RN - 04/21/2025 8:37 AM EDT Chava Mcgraw RN 04/21/2025 8:38 AM Insert PICC line Date/Time: 04/21/2025 8:37 AM Performed by: Chava Mcgraw RN Authorized by: Ludin Jose MD [place] Protocol: Verbal consent obtained?: Yes Written consent [...] time out verifies correct patient, procedure, equipment, legal support assistant and site/side marked as required: [...] patient. Guidewire removed post PICC placement: Yes Ludin Jose MD IV THERAPY ORDERABLES Final Resu lt * POC Glucose Monitoring Device (04/21/2025 4:56 AM EDT) POC Glucose Monitoring Device 74 70 - 100 mg/dL 04/21/2025 4:56 AM EDT [facility] Blood 04/21/2025 4:56 AM EDT 04/21/2025 4:56 AM EDT us Ludin Jose MD POINT OF CARE TEST ORDERABLES Fi nal Result Performing Organization Address City/[facility]/ZIP Co de Phone Number [facility] [address] [facility] * POC Glucose Monitoring Device (04/20/2025 11:27 PM EDT) POC Glucose Monitoring Device 96 70 - 100 mg/dL 04/20/2025 11:30 PM EDT [facility] Blood 04/20/2025 11:2 7 PM EDT 04/20/2025 11:30 PM EDT us Ludin Jose MD POINT OF CARE TEST ORDERABLES Fi nal Result Performing Organization Address [facility] Co de Phone Number [facility] [address] [facility] * (ABNORMAL) POC Glucose Monitoring Device (04/20/2025 6:30 PM EDT) POC Glucose Monitoring Device 103(H) 70 - 100 mg/dL 04/20/2025 6:31 PM EDT [facility] Blood 04/20/2025 6:30 PM EDT 04/20/2025 6:31 PM EDT us Ludin Jose MD POINT OF CARE TEST ORDERABLES Fi nal Result Performing Organization Address [facility] Co de Phone Number [facility] [address] [facility] * (ABNORMAL) Renal Function Panel w/EGFR (04/20/2025 6:09 PM EDT) Sodium 133 133 - 146 mmol/L 04/20/2025 7:05 PM EDT [facility] Potassium 5.4(H) 3.5 - 5.3 mmol/L 04/20/2025 7:05 PM EDT [facility] Comment:Hemolysis Present: R esults may be influenced artificially. Recommend recollection as clinically indicated. Chloride 108 98 - 110 mmol/L 04/20/2025 7:05 PM EDT [facility] CO2 19(L) 21 - 33 mmol/L 04/20/2025 7:05 PM EDT [facility] Comment:High lactate dehydro genase concentrations in patient samples may cause falsely increased bicarbonate results. If markedly elevated LDH is observed or suspected, please assess results in conjunction with patient`s clinical presentation. In cases of discrepant results, consider evaluating CO2 in with a blood gas order. Anion Gap 6 3 - 16 mmol/L 04/20/2025 7:05 PM EDT [facility] BUN 57(H) 7 - 25 mg/dL 04/20/2025 7:05 PM EDT [facility] Creatinine 1.25 0.60 - 1.30 mg/dL 04/20/2025 7:05 PM T [facility] Glucose 109(H) 70 - 100 mg/dL 04/20/2025 7:05 PM EDT [facility] Calcium 7.0(L) 8.6 - 10.3 mg/dL 04/20/2025 7:05 PM EDT [facility] Phosphorus 4.3 2.1 - 4.7 mg/dL 04/20/2025 7:05 PM EDT [facility] Comment:HEMOLYSIS EVIDENT. R ESULTS MAY BE INFLUENCED. Albumin 2.6(L) 3.5 - 5.7 g/dL 04/20/2025 7:05 PM T [facility] Osmolality, Calculated 292 278 - 305 mOsm/kg 04/20/2025 7:05 PM EDT [facility] EGFR 58 04/20/2025 7:05 PM T [facility] Comment:As of 2021, the estimated [...] BLOOD ORDERABLES Final Result Performing Organization Address [facility]/ZIP Co de Phone Number [facility] [address] [facility] * (ABNORMAL) Magnesium (04/20/2025 6:09 PM EDT) Magnesium 2.6(H) 1.5 - 2.5 mg/dL 04/20/2025 7:05 PM EDT [facility] Comment:HEMOLYSIS EVIDENT. R ESULTS MAY BE INFLUENCED. Plasma 04/20/2025 6:09 PM EDT 04/20/2025 6:13 PM EDT Sergey Altman MD LAB BLOOD ORDERABLES Final Result Performing Organization Address [facility] de Phone Number [facility] [address] [facility] * (ABNORMAL) Hepatic Function Panel (04/20/2025 6:09 PM EDT) Total Bilirubin 1.6(H) 0.0 - 1.5 mg/dL 04/20/2025 7:05 PM EDT [facility] Bilirubin, Direct 0.30 0.00 - 0.40 mg/dL 04/20/2025 7:05 PM EDT [facility] Comment:HEMOLYSIS EVIDENT. D IRECT BILIRUBIN CONCENTRATIONS MAY BE FALSELY DECREASED IN THE PRESENCE OF HEMOLYSIS. INTERPRET WITH CAUTION. AST 162(H) 13 - 39 U/L 04/20/2025 7:05 PM EDT [facility] ALT 137(H) 7 - 52 U/L 04/20/2025 7:05 PM EDT [facility] Alkaline Phosphatase 49 36 - 125 U/L 04/20/2025 7:05 PM EDT [facility] Total Protein 4.1(L) 6.4 - 8.9 g/dL 04/20/2025 7:05 PM EDT [facility] Albumin 2.6(L) 3.5 - 5.7 g/dL 04/20/2025 7:05 PM EDT [facility] Bilirubin, Indirect 1.30(H) 0.00 - 1.10 mg/dL 04/20/2025 7:05 PM EDT [facility] Plasma 04/20/2025 6:09 PM EDT 04/20/2025 6:13 PM EDT Sergey Altman MD LAB BLOOD ORDERABLES Final Result Performing Organization Address City/[facility]/ZIP Co de Phone Number [facility] [address] [facility]. [address] * (ABNORMAL) POC Glucose Monitoring Device (04/20/2025 12:31 PM EDT) POC Glucose Monitoring Device 121(H) 70 - 100 mg/dL 04/20/2025 12:32 PM EDT [facility] Blood 04/20/2025 12:3 1 PM EDT 04/20/2025 12:32 PM EDT Ludin Jose MD POINT OF CARE TEST ORDERABLES Fi nal Result Performing Organization Address [facility]/ZIP Co de Phone Number [facility] [address] [facility] * Tacrolimus level (04/20/2025 8:20 AM EDT) Tacrolimus (LC-MS) 6.9 3.0 - 15.0 ng/mL 04/20/2025 2:09 PM EDT [facility] Comment:Performed via liquid chromatography tandem mass spectrometry. Detection limit: 1 ng/mL. Individual target concentrations may vary due to target organ and time after transplant. This test has been developed and its performance characteristics determined by [facility] which is certified under [...] Res ult Performing Organization Address [facility]/ZIP Co de Phone Number [facility] [address] [facility]. [address] * (ABNORMAL) POC Glucose Monitoring Device (04/20/2025 5:34 AM EDT) POC Glucose Monitoring Device 144(H) 70 - 100 mg/dL 04/20/2025 5:34 AM EDT [facility] Blood 04/20/2025 5:34 AM EDT 04/20/2025 5:34 AM EDT Ludin Jose MD POINT OF CARE TEST ORDERABLES Fi nal Result Performing Organization Address [facility] de Phone Number [facility] [address] [place] [address]. [address] * Calcium Free, Serum (04/20/2025 1:33 AM EDT) Free Calcium, Ser 4.80 4.40 - 5.40 mg/dL 04/20/2025 1:50 AM EDT [facility] Comment:Free calcium levels vary inversely with pH by approximately 5% for each 0.1 unit of pH change. Assay results have been normalized to pH = 7.40. Serum 04/20/2025 1:33 AM EDT 04/20/2025 1:39 AM EDT Narrative [facility] - 04/20/2025 1:50 AM EDT This test has been developed and its performance characteristics determined by [facility] which is certified under [...] MD LAB BLOOD ORDERABLES Final Resul t [facility] [address] [place] [address], [facility] * (ABNORMAL) Renal Function Panel w/EGFR (04/20/2025 1:33 AM EDT) Sodium 141 133 - 146 mmol/L 04/20/2025 2:05 AM EDT [facility] Potassium 5.2 3.5 - 5.3 mmol/L 04/20/2025 2:05 AM EDT [facility] Chloride 113(H) 98 - 110 mmol/L 04/20/2025 2:05 AM EDT [facility] CO2 21 21 - 33 mmol/L 04/20/2025 2:05 AM EDT [facility] Comment:High lactate dehydro genase concentrations in patient samples may cause falsely increased bicarbonate results. If markedly elevated LDH is observed or suspected, please assess results in conjunction with patient`s clinical presentation. In cases of discrepant results, consider evaluating CO2 in with a blood gas order. Anion Gap 7 3 - 16 mmol/L 04/20/2025 2:05 AM EDT [facility] BUN 37(H) 7 - 25 mg/dL 04/20/2025 2:05 AM EDT [facility] Creatinine 1.01 0.60 - 1.30 mg/dL 04/20/2025 2:05 AM EDT [facility] Glucose 150(H) 70 - 100 mg/dL 04/20/2025 2:05 AM EDT [facility] Calcium 7.9(L) 8.6 - 10.3 mg/dL 04/20/2025 2:05 AM EDT [facility] Phosphorus 4.9(H) 2.1 - 4.7 mg/dL 04/20/2025 2:05 AM EDT [facility] Albumin 2.8(L) 3.5 - 5.7 g/dL 04/20/2025 2:05 AM EDT [facility] Osmolality, Calculated 304 278 - 305 mOsm/kg 04/20/2025 2:05 AM EDT [facility] EGFR 74 04/20/2025 2:05 AM EDT [facility] Comment:As of 2021, the estimated GFR [...] BLOOD ORDERABLES Final Result Performing Organization Address [facility] [facility] Co de Phone Number [facility] [address] [facility]. [address] * (ABNORMAL) Protime-INR (04/20/2025 1:33 AM EDT) Protime 21.0(H) 12.1 - 15.1 seconds 04/20/2025 1:51 AM EDT [facility] INR 1.7(H) 0.9 - 1.1 04/20/2025 1:51 AM EDT [facility] Comment: RECOMMENDED THERAPEUTIC RANGES USING INR : Stable oral anticoagulant therapy: 2.0 - 3.0 Mechanical prosthetic heart valve: 2.5 - 3.5 Recurrent acute myocardial infarction: 2.5 - 3.5 Plasma 04/20/2025 1:33 AM EDT 04/20/2025 1:39 AM EDT Sergey Altman MD LAB BLOOD ORDERABLES Final Result Performing Organization Address [facility] Co de Phone Number [facility] [address] [facility]. [address] * Magnesium (04/20/2025 1:33 AM EDT) Magnesium 2.4 1.5 - 2.5 mg/dL 04/20/2025 2:05 AM EDT [facility] Plasma 04/20/2025 1:33 AM EDT 04/20/2025 1:39 AM EDT Sergey Altman MD LAB BLOOD ORDERABLES Final Result [facility] [address] * (ABNORMAL) Hepatic Function Panel (04/20/2025 1:33 AM EDT) Total Bilirubin 1.6(H) 0.0 - 1.5 mg/dL 04/20/2025 2:05 AM EDT [facility] Bilirubin, Direct 0.59(H) 0.00 - 0.40 mg/dL 04/20/2025 2:05 AM EDT [facility] AST 163(H) 13 - 39 U/L 04/20/2025 2:05 AM EDT [facility] ALT 127(H) 7 - 52 U/L 04/20/2025 2:05 AM EDT [facility] Alkaline Phosphatase 54 36 - 125 U/L 04/20/2025 2:05 AM EDT [facility] Total Protein 4.4(L) 6.4 - 8.9 g/dL 04/20/2025 2:05 AM EDT [facility] Albumin 2.8(L) 3.5 - 5.7 g/dL 04/20/2025 2:05 AM EDT [facility] Bilirubin, Indirect 1.01 0.00 - 1.10 mg/dL 04/20/2025 2:05 AM EDT [facility] Plasma 04/20/2025 1:33 AM EDT 04/20/2025 1:39 AM EDT Sergey Altman MD LAB BLOOD ORDERABLES Final Result [facility] [address] [facility] [place] [address], [facility] * (ABNORMAL) CBC (04/20/2025 1:33 AM EDT) WBC 10.9(H) 3.8 - 10.8 10E3/uL 04/20/2025 1:42 AM EDT [facility] RBC 3.89 3.80 - 5.10 10E6/uL 04/20/2025 1:42 AM EDT [facility] Hemoglobin 11.8 11.7 - 15.5 g/dL 04/20/2025 1:42 AM EDT [facility] Hematocrit 34.9(L) 35.0 - 45.0 % 04/20/2025 1:42 AM EDT [facility] MCV 89.6 80.0 - 100.0 fL 04/20/2025 1:42 AM EDT [facility] MCH 30.3 27.0 - 33.0 pg 04/20/2025 1:42 AM EDT [facility] MCHC 33.8 32.0 - 36.0 g/dL 04/20/2025 1:42 AM EDT [facility] RDW 17.1(H) 11.0 - 15.0 % 04/20/2025 1:42 AM EDT [facility] Platelets 77(L) 140 - 400 10E3/uL 04/20/2025 1:42 AM EDT [facility] MPV 9.8 7.5 - 11.5 fL 04/20/2025 1:42 AM EDT [facility] Whole Blood 04/20/2025 1:33 AM EDT 04/20/2025 1:39 AM EDT us Sergey Altman MD LAB BLOOD ORDERABLES Final Result [facility] [address] * (ABNORMAL) POC Glucose Monitoring Device (04/20/2025 1:26 AM EDT) Pathologist [facility] POC Glucose Monitoring Device 156(H) 70 - 100 mg/dL 04/20/2025 1:28 AM EDT [facility] Blood 04/20/2025 1:26 AM EDT 04/20/2025 1:27 AM EDT Ludin Jose MD POINT OF CARE TEST ORDERABLES Fi nal Result [facility] [address] [id number], [facility] * (ABNORMAL) Renal Function Panel w/EGFR (04/19/2025 5:27 PM EDT) Sodium 141 133 - 146 mmol/L 04/19/2025 6:23 PM EDT [facility] Potassium 5.4(H) 3.5 - 5.3 mmol/L 04/19/2025 6:23 PM EDT [facility] Chloride 113(H) 98 - 110 mmol/L 04/19/2025 6:23 PM EDT [facility] CO2 21 21 - 33 mmol/L 04/19/2025 6:23 PM EDT [facility] Comment:High lactate dehydro genase concentrations in patient samples may cause falsely increased bicarbonate results. If markedly elevated LDH is observed or suspected, please assess results in conjunction with patient`s clinical presentation. In cases of discrepant results, consider evaluating CO2 in with a blood gas order. Anion Gap 7 3 - 16 mmol/L 04/19/2025 6:23 PM EDT [facility] BUN 31(H) 7 - 25 mg/dL 04/19/2025 6:23 PM EDT [facility] Creatinine 0.92 0.60 - 1.30 mg/dL 04/19/2025 6:23 PM EDT [facility] Glucose 133(H) 70 - 100 mg/dL 04/19/2025 6:23 PM EDT [facility] Calcium 7.8(L) 8.6 - 10.3 mg/dL 04/19/2025 6:23 PM EDT [facility] Phosphorus 4.7 2.1 - 4.7 mg/dL 04/19/2025 6:23 PM EDT [facility] Albumin 2.9(L) 3.5 - 5.7 g/dL 04/19/2025 6:23 PM EDT [facility] Osmolality, Calculated 300 278 - 305 mOsm/kg 04/19/2025 6:23 PM EDT [facility] EGFR 83 04/19/2025 6:23 PM EDT [facility] Comment:As of 2021, the estimated [...] Altman MD LAB BLOOD ORDERABLES Final Result [facility] [address] * (ABNORMAL) Protime-INR (04/19/2025 5:27 PM EDT) Protime 23.0(H) 12.1 - 15.1 seconds 04/19/2025 5:52 PM EDT [facility] INR 1.9(H) 0.9 - 1.1 04/19/2025 5:52 PM EDT [facility] Comment: RECOMMENDED THERAPEUTIC RANGES USING INR : Stable oral anticoagulant therapy: 2.0 - 3.0 Mechanical prosthetic heart valve: 2.5 - 3.5 Recurrent acute myocardial infarction: 2.5 - 3.5 Plasma 04/19/2025 5:27 PM EDT 04/19/2025 5:31 PM EDT Sergey Altman MD LAB BLOOD ORDERABLES Final Result [facility] [address] * Magnesium (04/19/2025 5:27 PM EDT) Magnesium 2.3 1.5 - 2.5 mg/dL 04/19/2025 6:23 PM EDT [facility] Plasma 04/19/2025 5:27 PM EDT 04/19/2025 5:31 PM EDT Sergey Altman MD LAB BLOOD ORDERABLES Final Result Performing Organization Address City/[facility]/ZIP Co de Phone Number [facility] [address] [place] [facility]. [address] * (ABNORMAL) Hepatic Function Panel (04/19/2025 5:27 PM EDT) Total Bilirubin 2.0(H) 0.0 - 1.5 mg/dL 04/19/2025 6:23 PM EDT [facility] Bilirubin, Direct 0.79(H) 0.00 - 0.40 mg/dL 04/19/2025 6:23 PM EDT [facility] AST 178(H) 13 - 39 U/L 04/19/2025 6:23 PM EDT [facility] ALT 131(H) 7 - 52 U/L 04/19/2025 6:23 PM EDT [facility] Alkaline Phosphatase 58 36 - 125 U/L 04/19/2025 6:23 PM EDT [facility] Total Protein 4.5(L) 6.4 - 8.9 g/dL 04/19/2025 6:23 PM EDT [facility] Albumin 2.9(L) 3.5 - 5.7 g/dL 04/19/2025 6:23 PM EDT [facility] Bilirubin, Indirect 1.21(H) 0.00 - 1.10 mg/dL 04/19/2025 6:23 PM EDT [facility] Plasma 04/19/2025 5:27 PM EDT 04/19/2025 5:31 PM EDT us Sergey Altman MD LAB BLOOD ORDERABLES Final Result [facility] [address] [facility]. [address] * (ABNORMAL) CBC (04/19/2025 5:27 PM EDT) WBC 13.3(H) 3.8 - 10.8 10E3/uL 04/19/2025 5:37 PM EDT [facility] RBC 4.08 3.80 - 5.10 10E6/uL 04/19/2025 5:37 PM EDT [facility] Hemoglobin 12.5 11.7 - 15.5 g/dL 04/19/2025 5:37 PM EDT [facility] Hematocrit 37.1 35.0 - 45.0 % 04/19/2025 5:37 PM EDT [facility] MCV 90.8 80.0 - 100.0 fL 04/19/2025 5:37 PM EDT [facility] MCH 30.5 27.0 - 33.0 pg 04/19/2025 5:37 PM EDT [facility] MCHC 33.6 32.0 - 36.0 g/dL 04/19/2025 5:37 PM EDT [facility] RDW 16.7(H) 11.0 - 15.0 % 04/19/2025 5:37 PM EDT [facility] Platelets 77(L) 140 - 400 10E3/uL 04/19/2025 5:37 PM EDT [facility] MPV 9.1 7.5 - 11.5 fL 04/19/2025 5:37 PM EDT [facility] Whole Blood 04/19/2025 5:27 PM EDT 04/19/2025 5:31 PM EDT us Sergey Altman MD LAB BLOOD ORDERABLES Final Result [facility] [address] [place] [address], [place] * (ABNORMAL) POC Glucose Monitoring Device (04/19/2025 5:25 PM EDT) POC Glucose Monitoring Device 118(H) 70 - 100 mg/dL 04/19/2025 5:26 PM EDT [facility] Blood 04/19/2025 5:25 PM EDT 04/19/2025 5:26 PM EDT Ludin Jose MD POINT OF CARE TEST ORDERABLES Fi nal Result [facility] [address] [place] [address], [facility] * Coccidioides Antibody Reflexive Panel (04/19/2025 12:41 PM EDT) Coccidioides IgM 0.7 <=0.9 IV 04/23/20 7:41 PM EDT [facility] Comment: INTERPRETIVE INFORMATION: Coccidioides Antibody, [...] 0.2 <=0.9 IV 04/23/20 7:41 PM EDT [facility] Comment: INTERPRETIVE INFORMATION: Coccidioides Antibody, [...] represented in the [facility]ULY tests. Effective March [id number] Coccidioides Ab, IgG by [facility] will be made non-orderable. [facility] offers order code [id number] Coccidioides Abs, IgG/IgM, EIA. For further information, please contact your local [facility] Attendant. Serum 04/19/2025 12:4 1 PM EDT 04/23/2025 8:07 PM EDT Narrative [facility] - 04/23/2025 8:07 PM EDT PERFORMED AT: [employer] [address] [place], [place] [id number] LEARNING ENGINEER: Mark Atwood [facility] PHONE: [phone] us Shannan Stacy PharmD LAB BLOOD ORDERABLES Final Result [facility] [address] [facility] [place] [address], [facility] * (ABNORMAL) Renal Function Panel w/EGFR (04/19/2025 12:41 PM EDT) Sodium 139 133 - 146 mmol/L 04/19/2025 1:22 PM EDT [facility] Potassium 5.2 3.5 - 5.3 mmol/L 04/19/2025 1:22 PM EDT [facility] Chloride 112(H) 98 - 110 mmol/L 04/19/2025 1:22 PM EDT [facility] CO2 23 21 - 33 mmol/L 04/19/2025 1:22 PM EDT [facility] Comment:High lactate dehydro genase concentrations in patient samples may cause falsely increased bicarbonate results. If markedly elevated LDH is observed or suspected, please assess results in conjunction with patient`s clinical presentation. In cases of discrepant results, consider evaluating CO2 in with a blood gas order. Anion Gap 4 3 - 16 mmol/L 04/19/2025 1:22 PM EDT [facility] BUN 27(H) 7 - 25 mg/dL 04/19/2025 1:22 PM EDT [facility] Creatinine 0.85 0.60 - 1.30 mg/dL 04/19/2025 1:22 PM EDT [facility] Glucose 120(H) 70 - 100 mg/dL 04/19/2025 1:22 PM EDT [facility] Calcium 7.6(L) 8.6 - 10.3 mg/dL 04/19/2025 1:22 PM EDT [facility] Phosphorus 4.1 2.1 - 4.7 mg/dL 04/19/2025 1:22 PM EDT [facility] Albumin 2.9(L) 3.5 - 5.7 g/dL 04/19/2025 1:22 PM EDT [facility] Osmolality, Calculated 294 278 - 305 mOsm/kg 04/19/2025 1:22 PM EDT [facility] EGFR >90 04/19/2025 1:22 PM EDT [facility] Comment: As of 2021, the [...] Altman MD LAB BLOOD ORDERABLES Final Result [facility] [address] [place] [address], [facility] * (ABNORMAL) Protime-INR (04/19/2025 12:41 PM EDT) Pathologist [facility] Protime 22.0(H) 12.1 - 15.1 seconds 04/19/2025 1:38 PM EDT [facility] INR 1.8(H) 0.9 - 1.1 04/19/2025 1:38 PM EDT [facility] Comment: RECOMMENDED THERAPEUTIC RANGES USING INR : Stable oral anticoagulant therapy: 2.0 - 3.0 Mechanical prosthetic heart valve: 2.5 - 3.5 Recurrent acute myocardial infarction: 2.5 - 3.5 Plasma 04/19/2025 12:4 1 PM EDT 04/19/2025 12:50 PM EDT Sergey Altman MD LAB BLOOD ORDERABLES Final Result [facility] [address] [facility]. [address] * Magnesium (04/19/2025 12:41 PM EDT) [facility] Magnesium 2.2 1.5 - 2.5 mg/dL 04/19/2025 1:22 PM EDT [facility] Plasma 04/19/2025 12:4 1 PM EDT 04/19/2025 12:50 PM EDT Sergey Altman MD LAB BLOOD ORDERABLES Final Result [facility] [address] [facility]. [address] * (ABNORMAL) Hepatic Function Panel (04/19/2025 12:41 PM EDT) [facility] Total Bilirubin 2.1(H) 0.0 - 1.5 mg/dL 04/19/2025 1:22 PM EDT [facility] Bilirubin, Direct 0.81(H) 0.00 - 0.40 mg/dL 04/19/2025 1:22 PM EDT [facility] AST 185(H) 13 - 39 U/L 04/19/2025 1:22 PM EDT [facility] ALT 142(H) 7 - 52 U/L 04/19/2025 1:22 PM EDT [facility] Alkaline Phosphatase 57 36 - 125 U/L 04/19/2025 1:22 PM EDT [facility] Total Protein 4.7(L) 6.4 - 8.9 g/dL 04/19/2025 1:22 PM EDT [facility] Albumin 2.9(L) 3.5 - 5.7 g/dL 04/19/2025 1:22 PM EDT [facility] Bilirubin, Indirect 1.29(H) 0.00 - 1.10 mg/dL 04/19/2025 1:22 PM EDT [facility] Plasma 04/19/2025 12:4 1 PM EDT 04/19/2025 12:50 PM EDT us Sergey Altman MD LAB BLOOD ORDERABLES Final Result [facility] [address] * (ABNORMAL) CBC (04/19/2025 12:41 PM EDT) WBC 15.6(H) 3.8 - 10.8 10E3/uL 04/19/2025 1:26 PM EDT [facility] RBC 4.24 3.80 - 5.10 10E6/uL 04/19/2025 1:26 PM EDT [facility] Hemoglobin 12.9 11.7 - 15.5 g/dL 04/19/2025 1:26 PM EDT [facility] Hematocrit 37.8 35.0 - 45.0 % 04/19/2025 1:26 PM EDT [facility] MCV 89.2 80.0 - 100.0 fL 04/19/2025 1:26 PM EDT [facility] MCH 30.4 27.0 - 33.0 pg 04/19/2025 1:26 PM EDT [facility] MCHC 34.1 32.0 - 36.0 g/dL 04/19/2025 1:26 PM EDT [facility] RDW 16.4(H) 11.0 - 15.0 % 04/19/2025 1:26 PM EDT [facility] Platelets 95(L) 140 - 400 10E3/uL 04/19/2025 1:26 PM EDT [facility] MPV 9.3 7.5 - 11.5 fL 04/19/2025 1:26 PM EDT [facility] Whole Blood 04/19/2025 12:4 1 PM EDT 04/19/2025 12:50 PM EDT us Sergey Altman MD LAB BLOOD ORDERABLES Final Result [facility] [address] [facility] [place] [address], [facility] * (ABNORMAL) POC Glucose Monitoring Device (04/19/2025 12:37 PM EDT) [facility] POC Glucose Monitoring Device 109(H) 70 - 100 mg/dL 04/19/2025 12:37 PM EDT [facility] Blood 04/19/2025 12:3 7 PM EDT 04/19/2025 12:37 PM EDT us Ludin Jose MD POINT OF CARE TEST ORDERABLES Fi nal Result Performing Organization Address [facility] Co de Phone Number [facility] [address] [facility]. [address] * US Duplex Wqe-Bcw-Dxlbbrc Comp (04/19/2025 11:03 AM EDT) Anatomical Region [...] EXAM: US ABDOMEN LIMITED EXAM: US DUPLEX [id number] COMPLETE INDICATION: Other - Must specify in [...] EXAM: US ABDOMEN LIMITED EXAM: US DUPLEX [id number] COMPLETE INDICATION: Other - Must specify in [...] EXAM: US ABDOMEN LIMITED EXAM: US DUPLEX [id number] COMPLETE INDICATION: Other - Must specify in [...] EXAM: US ABDOMEN LIMITED EXAM: US DUPLEX [id number] COMPLETE INDICATION: Other - Must specify in [...] 04/19/2025 2:31 PM EDT Jostin Hess MD [facility]LES Fin al Result * (ABNORMAL) Tacrolimus level (04/19/2025 8:37 AM EDT) Tacrolimus (LC-MS) <1.0(L) 3.0 - 15.0 ng/mL 04/19/2025 2:02 PM EDT [facility] Comment:Performed via liquid chromatography tandem mass spectrometry. Detection limit: 1 ng/mL. Individual target concentrations may vary due to target organ and time after transplant. This test has been developed and its performance characteristics determined by [facility] which is certified under the Clinical Laboratory [...] Res ult Performing Organization Address [facility]/ZIP Co de Phone Number [facility] [address] * Lactic Acid (04/19/2025 8:37 AM EDT) Lactate 1.3 0.5 - 2.2 mmol/L 04/19/2025 9:45 AM EDT [facility] Plasma 04/19/2025 8:37 AM EDT 04/19/2025 8:41 AM EDT Sergey Altman MD LAB BLOOD ORDERABLES Final Result Performing Organization Address [facility] Co de Phone Number [facility] [address] * (ABNORMAL) POC Glucose Monitoring Device (04/19/2025 8:33 AM EDT) [facility] POC Glucose Monitoring Device 105(H) 70 - 100 mg/dL 04/19/2025 8:35 AM EDT [facility] Blood 04/19/2025 8:33 AM EDT 04/19/2025 8:34 AM EDT Ludin Jose MD POINT OF CARE TEST ORDERABLES Fi nal Result [facility] [address] [facility] * Lactic Acid (04/19/2025 6:33 AM EDT) [facility] Lactate 1.4 0.5 - 2.2 mmol/L 04/19/2025 7:55 AM EDT [facility] Plasma 04/19/2025 6:33 AM EDT 04/19/2025 7:34 AM EDT us Sergey Altman MD LAB BLOOD ORDERABLES Final Result Performing Organization Address [facility] Co de Phone Number [facility] [address] [facility]. [address] * (ABNORMAL) Renal Function Panel w/EGFR (04/19/2025 6:33 AM EDT) [facility] Sodium 139 133 - 146 mmol/L 04/19/2025 8:23 AM EDT [facility] Potassium 5.4(H) 3.5 - 5.3 mmol/L 04/19/2025 8:23 AM EDT [facility] Chloride 111(H) 98 - 110 mmol/L 04/19/2025 8:23 AM EDT [facility] CO2 23 21 - 33 mmol/L 04/19/2025 8:23 AM EDT [facility] Comment:High lactate dehydro genase concentrations in patient samples may cause falsely increased bicarbonate results. If markedly elevated LDH is observed or suspected, please assess results in conjunction with patient`s clinical presentation. In cases of discrepant results, consider evaluating CO2 in with a blood gas order. Anion Gap 5 3 - 16 mmol/L 04/19/2025 8:23 AM EDT [facility] BUN 21 7 - 25 mg/dL 04/19/2025 8:23 AM EDT [facility] Creatinine 0.76 0.60 - 1.30 mg/dL 04/19/2025 8:23 AM EDT [facility] Glucose 118(H) 70 - 100 mg/dL 04/19/2025 8:23 AM EDT [facility] Calcium 7.7(L) 8.6 - 10.3 mg/dL 04/19/2025 8:23 AM EDT [facility] Phosphorus 3.7 2.1 - 4.7 mg/dL 04/19/2025 8:23 AM EDT [facility] Albumin 2.9(L) 3.5 - 5.7 g/dL 04/19/2025 8:23 AM EDT [facility] Osmolality, Calculated 292 278 - 305 mOsm/kg 04/19/2025 8:23 AM EDT [facility] EGFR >90 04/19/2025 8:23 AM EDT [facility] Comment: As of 2021, the [...] Altman MD LAB BLOOD ORDERABLES Final Result [facility] [address] [facility]. [address] * (ABNORMAL) Protime-INR (04/19/2025 6:33 AM EDT) Protime 23.4(H) 12.1 - 15.1 seconds 04/19/2025 8:20 AM EDT [facility] INR 1.9(H) 0.9 - 1.1 04/19/2025 8:20 AM EDT [facility] Comment: RECOMMENDED THERAPEUTIC RANGES USING INR : Stable oral anticoagulant therapy: 2.0 - 3.0 Mechanical prosthetic heart valve: 2.5 - 3.5 Recurrent acute myocardial infarction: 2.5 - 3.5 Plasma 04/19/2025 6:33 AM EDT 04/19/2025 7:34 AM EDT us Sergey Altman MD LAB BLOOD ORDERABLES Final Result [facility] [address] [place] [facility]. [address] * Magnesium (04/19/2025 6:33 AM EDT) Magnesium 2.2 1.5 - 2.5 mg/dL 04/19/2025 8:23 AM EDT [facility] Plasma 04/19/2025 6:33 AM EDT 04/19/2025 7:34 AM EDT Sergey Altman MD LAB BLOOD ORDERABLES Final Result [facility] [address] [place] [facility]. [address] * (ABNORMAL) Hepatic Function Panel (04/19/2025 6:33 AM EDT) Total Bilirubin 2.7(H) 0.0 - 1.5 mg/dL 04/19/2025 8:23 AM EDT [facility] Bilirubin, Direct 1.01(H) 0.00 - 0.40 mg/dL 04/19/2025 8:23 AM EDT [facility] AST 193(H) 13 - 39 U/L 04/19/2025 8:23 AM EDT [facility] ALT 144(H) 7 - 52 U/L 04/19/2025 8:23 AM EDT [facility] Alkaline Phosphatase 56 36 - 125 U/L 04/19/2025 8:23 AM EDT [facility] Total Protein 4.8(L) 6.4 - 8.9 g/dL 04/19/2025 8:23 AM EDT [facility] Albumin 2.9(L) 3.5 - 5.7 g/dL 04/19/2025 8:23 AM EDT [facility] Bilirubin, Indirect 1.69(H) 0.00 - 1.10 mg/dL 04/19/2025 8:23 AM EDT [facility] Plasma 04/19/2025 6:33 AM EDT 04/19/2025 7:34 AM EDT us Sergey Altman MD LAB BLOOD ORDERABLES Final Result [facility] [address] [place] [address], [facility] * (ABNORMAL) CBC (04/19/2025 6:33 AM EDT) WBC 13.7(H) 3.8 - 10.8 10E3/uL 04/19/2025 8:20 AM EDT [facility] RBC 4.31 3.80 - 5.10 10E6/uL 04/19/2025 8:20 AM EDT [facility] Hemoglobin 13.0 11.7 - 15.5 g/dL 04/19/2025 8:20 AM EDT [facility] Hematocrit 38.1 35.0 - 45.0 % 04/19/2025 8:20 AM EDT [facility] MCV 88.3 80.0 - 100.0 fL 04/19/2025 8:20 AM EDT [facility] MCH 30.1 27.0 - 33.0 pg 04/19/2025 8:20 AM EDT [facility] MCHC 34.1 32.0 - 36.0 g/dL 04/19/2025 8:20 AM EDT [facility] RDW 16.3(H) 11.0 - 15.0 % 04/19/2025 8:20 AM EDT [facility] Platelets 90(L) 140 - 400 10E3/uL 04/19/2025 8:20 AM EDT [facility] Comment:Specimen checked for clots. None detected. MPV 9.5 7.5 - 11.5 fL 04/19/2025 8:20 AM EDT [facility] Whole Blood 04/19/2025 6:33 AM EDT 04/19/2025 7:34 AM EDT us Sergey Altman MD LAB BLOOD ORDERABLES Final Result Performing Organization Address City/[facility]/ZIP Co de Phone Number [facility] [address] * (ABNORMAL) POC Glucose Monitoring Device (04/19/2025 6:24 AM EDT) Pathologist [facility] POC Glucose Monitoring Device 113(H) 70 - 100 mg/dL 04/19/2025 6:27 AM EDT [facility] Blood 04/19/2025 6:24 AM EDT 04/19/2025 6:27 AM EDT us Ludin Jose MD POINT OF CARE TEST ORDERABLES Fi nal Result [facility] [address] * Prepare Cryoprecipitate, 1 Units (04/19/2025 6:16 AM EDT) Product Code B6067Q62 [facility] Unit Number [id number] [facility] Dispense Status Presumed Transfused_PT [facility] Blood Expiration Date [id number] [facility] Coding System [id number] [facility] Product Code F8397X79 [facility] Unit Number [id number] [facility] Dispense Status Presumed Transfused_PT [facility] Blood Expiration Date [id number] [facility] Coding System [id number] [facility] Blood Bank Product Mario Chan MD BLOOD BANK PRODUCT ORDERAB LES Final Result Performing Organization Address City/[facility]/ZIP Co de Phone Number [facility] * Prepare Platelets, leukoreduced, 2 Units (04/19/2025 6:16 AM EDT) Product Code SE414R42 [facility] Unit Number [id number] [facility] Dispense Status Presumed Transfused_PT [facility] Blood Expiration Date [facility] Coding System [id number] HCLL Product Code R1010S13 HCLL Unit Number [id number] HCLL Dispense Status Presumed Transfused_PT HCLL Blood Expiration Date [id number] HCLL Coding System [id number] HCLL Blood Bank Product Mario Chan MD BLOOD BANK PRODUCT ORDERAB LES Final Result Performing Organization Address [facility] de Phone Number HCLL * Prepare Fresh Frozen Plasma, 5 Units (04/19/2025 6:15 AM EDT) Product Code H6897I20 HCLL Unit Number [id number] HCLL Dispense Status Presumed Transfused_PT HCLL Blood Expiration Date HCLL Coding System [id number] HCLL Product Code I3228Z74 HCLL Unit Number [id number] HCLL Dispense Status Released from Crossmatch_RE HCLL Blood Expiration Date [id number] HCLL Coding System [id number] HCLL Product Code A1084Q84 HCLL Unit Number [id number] HCLL Dispense Status Presumed Transfused_PT HCLL Blood Expiration Date HCLL Coding System [id number] HCLL Product Code L1203W48 HCLL Unit Number [id number] HCLL Dispense Status Presumed Transfused_PT HCLL Blood Expiration Date [id number] HCLL Coding System [id number] HCLL Product Code W9403K78 HCLL Unit Number [id number] HCLL Dispense Status Presumed Transfused_PT HCLL Blood Expiration Date [id number] HCLL Coding System [id number] HCLL Blood Bank Product Becky Goodman MD BLOOD BANK PRODUCT ORDERABLES Final Result Performing Organization Address City/[facility]/ZIP Co de Phone Number HCLL * Prepare RBC, leukoreduced, 5 Units (04/19/2025 6:15 AM EDT) Product Code Q6187S98 HCLL Unit Number [id number] HCLL Dispense Status Presumed Transfused_PT HCLL Blood Expiration Date HCLL Coding System [id number] HCLL Product Code M4093W00 HCLL Unit Number [id number] HCLL Dispense Status Presumed Transfused_PT HCLL Blood Expiration Date HCLL Coding System [id number] HCLL Product Code K7646N46 HCLL Unit Number [id number] HCLL Dispense Status Released from Crossmatch_RE HCLL Blood Expiration Date HCLL Coding System [id number] HCLL Product Code V2189Y23 HCLL Unit Number [id number] HCLL Dispense Status Presumed Transfused_PT HCLL Blood Expiration Date HCLL Coding System [id number] HCLL Product Code V8818A88 HCLL Unit Number [id number] HCLL Dispense Status Released from Crossmatch_RE HCLL Blood Expiration Date HCLL Coding System [id number] HCLL Blood Bank Product Becky Goodman MD BLOOD BANK PRODUCT ORDERABLES Final Result Performing Organization Address City/[facility]/ZIP Co de Phone Number HCLL * (ABNORMAL) POC Glucose Monitoring Device (04/19/2025 4:25 AM EDT) POC Glucose Monitoring Device 120(H) 70 - 100 mg/dL 04/19/2025 4:25 AM EDT [facility] Blood 04/19/2025 4:25 AM EDT 04/19/2025 4:25 AM EDT us Ludin Jose MD POINT OF CARE TEST ORDERABLES Fi nal Result Performing Organization Address [facility] Co de Phone Number [facility] [address] [facility]. [address] * POC Glucose Monitoring Device (04/19/2025 4:21 AM EDT) POC Glucose Monitoring Device 89 70 - 100 mg/dL 04/19/2025 4:24 AM EDT [facility] Blood 04/19/2025 4:21 AM EDT 04/19/2025 4:24 AM EDT Ludin Jose MD POINT OF CARE TEST ORDERABLES Fi nal Result Performing Organization Address [facility] de Phone Number [facility] [address] [facility]. [address] * X-ray Portable Chest (04/19/2025 2:50 [...] Mohan Khan MD [facility] Final Result * (ABNORMAL) High Sensitivity Troponin (04/19/2025 2:27 AM EDT) Pathologist [facility] High Sensitivity Troponin 15(H) 0 - 14 ng/L 04/19/2025 3:04 AM EDT [facility] Serum 04/19/2025 2:27 AM EDT 04/19/2025 2:41 AM EDT Mohan Khan MD LAB BLOOD ORDERABLES Final Result [facility] [address] [facility] [place] [address], [facility] * Lactic Acid (04/19/2025 2:27 AM EDT) [facility] Lactate 1.5 0.5 - 2.2 mmol/L 04/19/2025 3:01 AM EDT [facility] Plasma 04/19/2025 2:27 AM EDT 04/19/2025 2:41 AM EDT Sergey Altman MD LAB BLOOD ORDERABLES Final Result Performing Organization Address [facility] Co de Phone Number [facility] [address] * ECG 12-lead (MUSE) (04/19/2025 2:21 AM EDT) 04/19/2025 2:21 AM EDT Narrative MUSE - 04/19/2025 11:23 AM EDT Ventricular Rate: 80 BPM Atrial Rate: 80 BPM P-R Interval: 132 ms QRS Duration: 74 ms QT: 426 ms QTc: 491 ms P Josephine: 45 degrees R Josephine: 13 degrees T Josephine: 27 degrees Diagnosis Line: NORMAL SINUS RHYTHM ^ LOW VOLTAGE QRS COMPLEXES ^ PROLONGED QTC ^ ^ Confirmed by Anthony RAMOS MD ([id number]) on 04/19/2025 11:23:28 AM Mohan Khan MD ECG ORDERABLES Final Resul t Performing Organization Address [facility] de Phone Number MUSE * (ABNORMAL) POC Glucose Monitoring Device (04/19/2025 2:17 AM EDT) Pathologist [facility] POC Glucose Monitoring Device 120(H) 70 - 100 mg/dL 04/19/2025 2:18 AM EDT [facility] Blood 04/19/2025 2:17 AM EDT 04/19/2025 2:18 AM EDT Ludin Jose MD POINT OF CARE TEST ORDERABLES Fi nal Result Performing Organization Address [facility] Co de Phone Number [facility] [address] * (ABNORMAL) POC Glucose Monitoring Device (04/19/2025 12:23 AM EDT) [facility] POC Glucose Monitoring Device 119(H) 70 - 100 mg/dL 04/19/2025 12:25 AM EDT [facility] Blood 04/19/2025 12:2 3 AM EDT 04/19/2025 12:25 AM EDT Ludin Jose MD POINT OF CARE TEST ORDERABLES Fi nal Result [facility] [address] [facility]. [address] * Lactic Acid (04/18/2025 11:19 PM EDT) [facility] Lactate 1.6 0.5 - 2.2 mmol/L 04/18/2025 11:57 PM EDT [facility] Plasma 04/18/2025 11:1 9 PM EDT 04/18/2025 11:26 PM EDT Sergey Altman MD LAB BLOOD ORDERABLES Final Result Performing Organization Address City/[facility]/ZIP Co de Phone Number [facility] [address] [facility]. [address] * (ABNORMAL) Renal Function Panel w/EGFR (04/18/2025 11:19 PM EDT) [facility] Sodium 139 133 - 146 mmol/L 04/18/2025 11:57 PM EDT [facility] Potassium 3.7 3.5 - 5.3 mmol/L 04/18/2025 11:57 PM EDT [facility] Chloride 109 98 - 110 mmol/L 04/18/2025 11:57 PM EDT [facility] CO2 23 21 - 33 mmol/L 04/18/2025 11:57 PM EDT [facility] Comment:High lactate dehydro genase concentrations in patient samples may cause falsely increased bicarbonate results. If markedly elevated LDH is observed or suspected, please assess results in conjunction with patient`s clinical presentation. In cases of discrepant results, consider evaluating CO2 in with a blood gas order. Anion Gap 7 3 - 16 mmol/L 04/18/2025 11:57 PM EDT [facility] BUN 14 7 - 25 mg/dL 04/18/2025 11:57 PM EDT [facility] Creatinine 0.65 0.60 - 1.30 mg/dL 04/18/2025 11:57 PM EDT [facility] Glucose 156(H) 70 - 100 mg/dL 04/18/2025 11:57 PM EDT [facility] Calcium 7.8(L) 8.6 - 10.3 mg/dL 04/18/2025 11:57 PM EDT [facility] Phosphorus 3.5 2.1 - 4.7 mg/dL 04/18/2025 11:57 PM EDT [facility] Albumin 2.8(L) 3.5 - 5.7 g/dL 04/18/2025 11:57 PM EDT [facility] Osmolality, Calculated 292 278 - 305 mOsm/kg 04/18/2025 11:57 PM EDT [facility] EGFR >90 04/18/2025 11:57 PM EDT [facility] Comment: As of 2021, the [...] Altman MD LAB BLOOD ORDERABLES Final Result [facility] [address] * (ABNORMAL) Protime-INR (04/18/2025 11:19 PM EDT) Protime 21.8(H) 12.1 - 15.1 seconds 04/18/2025 11:39 PM EDT [facility] INR 1.8(H) 0.9 - 1.1 04/18/2025 11:39 PM EDT [facility] Comment: RECOMMENDED THERAPEUTIC RANGES USING INR : Stable oral anticoagulant therapy: 2.0 - 3.0 Mechanical prosthetic heart valve: 2.5 - 3.5 Recurrent acute myocardial infarction: 2.5 - 3.5 Plasma 04/18/2025 11:1 9 PM EDT 04/18/2025 11:26 PM EDT Sergey Altman MD LAB BLOOD ORDERABLES Final Result Performing Organization Address [facility]/ZIP Co de Phone Number [facility] [address] * Magnesium (04/18/2025 11:19 PM EDT) Pathologist [facility] Magnesium 2.2 1.5 - 2.5 mg/dL 04/18/2025 11:57 PM EDT [facility] Plasma 04/18/2025 11:1 9 PM EDT 04/18/2025 11:26 PM EDT Sergey Altman MD LAB BLOOD ORDERABLES Final Result [facility] [address] [facility]. [address] * (ABNORMAL) Hepatic Function Panel (04/18/2025 11:19 PM EDT) Total Bilirubin 4.5(H) 0.0 - 1.5 mg/dL 04/18/2025 11:57 PM EDT [facility] Bilirubin, Direct 2.41(H) 0.00 - 0.40 mg/dL 04/18/2025 11:57 PM EDT [facility] AST 203(H) 13 - 39 U/L 04/18/2025 11:57 PM EDT [facility] ALT 139(H) 7 - 52 U/L 04/18/2025 11:57 PM EDT [facility] Alkaline Phosphatase 55 36 - 125 U/L 04/18/2025 11:57 PM EDT [facility] Total Protein 4.3(L) 6.4 - 8.9 g/dL 04/18/2025 11:57 PM EDT [facility] Albumin 2.8(L) 3.5 - 5.7 g/dL 04/18/2025 11:57 PM EDT [facility] Bilirubin, Indirect 2.09(H) 0.00 - 1.10 mg/dL 04/18/2025 11:57 PM EDT [facility] Plasma 04/18/2025 11:1 9 PM EDT 04/18/2025 11:26 PM EDT us Sergey Altman MD LAB BLOOD ORDERABLES Final Result [facility] [address] [place] [address], [facility] * (ABNORMAL) CBC (04/18/2025 11:19 PM EDT) WBC 7.8 3.8 - 10.8 10E3/uL 04/18/2025 11:36 PM EDT [facility] RBC 4.21 3.80 - 5.10 10E6/uL 04/18/2025 11:36 PM EDT [facility] Hemoglobin 12.9 11.7 - 15.5 g/dL 04/18/2025 11:36 PM EDT [facility] Hematocrit 37.1 35.0 - 45.0 % 04/18/2025 11:36 PM EDT [facility] MCV 88.2 80.0 - 100.0 fL 04/18/2025 11:36 PM EDT [facility] MCH 30.7 27.0 - 33.0 pg 04/18/2025 11:36 PM EDT [facility] MCHC 34.8 32.0 - 36.0 g/dL 04/18/2025 11:36 PM EDT [facility] RDW 16.6(H) 11.0 - 15.0 % 04/18/2025 11:36 PM EDT [facility] Platelets 69(L) 140 - 400 10E3/uL 04/18/2025 11:36 PM EDT [facility] MPV 9.1 7.5 - 11.5 fL 04/18/2025 11:36 PM EDT [facility] Whole Blood 04/18/2025 11:1 9 PM EDT 04/18/2025 11:26 PM EDT Sergey Altman MD LAB BLOOD ORDERABLES Final Result [facility] [address] [place] [address], [facility] * (ABNORMAL) Blood gas, arterial (04/18/2025 10:46 PM EDT) O2 Sat, Arterial 100 04/18/2025 10:52 PM EDT [facility] FIO2 40 04/18/2025 10:52 PM EDT [facility] pH, Arterial 7.38 7.35 - 7.45 04/18/2025 10:52 PM EDT [facility] pCO2, Arterial 38 35 - 45 mm Hg 04/18/2025 10:52 PM EDT [facility] pO2, Arterial 136(H) 80 - 100 mm Hg 04/18/2025 10:52 PM EDT [facility] HCO3, Arterial 23 22 - 26 mmol/L 04/18/2025 10:52 PM EDT [facility] CO2 Content,Arteri al 24 23 - 27 mmol/L 04/18/2025 10:52 PM EDT [facility] Base Excess, Arterial -2.3(L) -2.0 - 3.0 mmol/L 04/18/2025 10:52 PM EDT [facility] %HBO2, Arterial 96.6 95.0 - 98.0 % 04/18/2025 10:52 PM EDT [facility] Carboxyhemoglo bin, Arterial 1.7 % 04/18/2025 10:52 PM EDT [facility] Comment: CARBOXYHEMOGLOBIN (CO) REFERENCE RANGES: Non-Smokers: <2 % Smokers: <8 % TOXIC: >20 % Methemoglobin, Arterial 1.2 0.0 - 1.5 % 04/18/2025 10:52 PM EDT [facility] Reduced hemoglobin, Arterial 0.5 0.0 - 5.0 % 04/18/2025 10:52 PM EDT [facility] Blood, Arterial 04/18/2025 1 0:46 PM EDT 04/18/2025 10:49 PM EDT us Ludin Jose MD LAB BLOOD ORDERABLES Final Resul t Performing Organization Address City/[facility]/ZIP Co de Phone Number [facility] [address] [facility]. [address] * Magnesium, STAT (04/18/2025 10:12 PM EDT) Magnesium 2.2 1.5 - 2.5 mg/dL 04/18/2025 10:51 PM EDT [facility] Plasma 04/18/2025 10:1 2 PM EDT 04/18/2025 10:16 PM EDT us Judith Murcia MD LAB BLOOD ORDERABLES Final Res ult Performing Organization Address [facility] Co de Phone Number [facility] [address] [facility]. [address] * (ABNORMAL) Renal Function Panel w/EGFR, STAT (04/18/2025 10:12 PM EDT) Sodium 139 133 - 146 mmol/L 04/18/2025 10:51 PM EDT [facility] Potassium 3.6 3.5 - 5.3 mmol/L 04/18/2025 10:51 PM EDT [facility] Chloride 110 98 - 110 mmol/L 04/18/2025 10:51 PM EDT [facility] CO2 22 21 - 33 mmol/L 04/18/2025 10:51 PM EDT [facility] Comment:High lactate dehydro genase concentrations in patient samples may cause falsely increased bicarbonate results. If markedly elevated LDH is observed or suspected, please assess results in conjunction with patient`s clinical presentation. In cases of discrepant results, consider evaluating CO2 in with a blood gas order. Anion Gap 7 3 - 16 mmol/L 04/18/2025 10:51 PM EDT [facility] BUN 14 7 - 25 mg/dL 04/18/2025 10:51 PM EDT [facility] Creatinine 0.65 0.60 - 1.30 mg/dL 04/18/2025 10:51 PM EDT [facility] Glucose 152(H) 70 - 100 mg/dL 04/18/2025 10:51 PM EDT [facility] Calcium 7.8(L) 8.6 - 10.3 mg/dL 04/18/2025 10:51 PM EDT [facility] Phosphorus 3.5 2.1 - 4.7 mg/dL 04/18/2025 10:51 PM EDT [facility] Albumin 2.8(L) 3.5 - 5.7 g/dL 04/18/2025 10:51 PM EDT [facility] Osmolality, Calculated 291 278 - 305 mOsm/kg 04/18/2025 10:51 PM EDT [facility] EGFR >90 04/18/2025 10:51 PM EDT [facility] Comment: As of 2021, the [...] 2 PM EDT 04/18/2025 10:16 PM EDT Judith Murcia MD LAB BLOOD ORDERABLES Final Res ult Performing Organization Address [facility] Co de Phone Number [facility] [address] [facility]. [address] * (ABNORMAL) POC Glucose Monitoring Device (04/18/2025 10:09 PM EDT) POC Glucose Monitoring Device 145(H) 70 - 100 mg/dL 04/18/2025 10:20 PM EDT [facility] Blood 04/18/2025 10:0 9 PM EDT 04/18/2025 10:20 PM EDT Ludin Jose MD POINT OF CARE TEST ORDERABLES Fi nal Result Performing Organization Address [facility] de Phone Number [facility] [address] [facility]. [address] * XR Portable Feeding Tube Check (04/18/2025 [...] - 2.2 mmol/L 04/18/2025 9:53 PM EDT [facility] Plasma 04/18/2025 9:28 PM EDT 04/18/2025 9:34 PM EDT Jostin Hess MD LAB BLOOD ORDERABLES Final Result Performing Organization Address City/[facility]/ZIP Co de Phone Number [facility] [address] * (ABNORMAL) POC Glucose Monitoring Device (04/18/2025 9:11 PM EDT) POC Glucose Monitoring Device 141(H) 70 - 100 mg/dL 04/18/2025 9:18 PM EDT [facility] Blood 04/18/2025 9:11 PM EDT 04/18/2025 9:17 PM EDT Ludin Jose MD POINT OF CARE TEST ORDERABLES Fi nal Result [facility] [address] [facility] [place], [place] [address] * X-ray Portable Chest (04/18/2025 8:26 PM [...] Gannon MD at 04/18/2025 9:12 PM EDT us Jostin Hess MD IMG DIAGNOSTIC FE G ORDERABLES Final Result * (ABNORMAL) POC Glucose Monitoring Device (04/18/2025 8:05 PM EDT) POC Glucose Monitoring Device 153(H) 70 - 100 mg/dL 04/18/2025 8:07 PM EDT [facility] Blood 04/18/2025 8:05 PM EDT 04/18/2025 8:07 PM EDT us Ludin Jose MD POINT OF CARE TEST ORDERABLES Fi nal Result [facility] [address] [facility] [place] [address], [facility] * Prepare Fresh Frozen Plasma, 5 Units (04/18/2025 7:53 PM EDT) Product Code S5207R61 HCLL Unit Number [id number] HCLL Dispense Status Released from Crossmatch_RE HCLL Blood Expiration Date HCLL Coding System [id number] HCLL Product Code N6788E28 HCLL Unit Number [id number] HCLL Dispense Status Released from Crossmatch_RE HCLL Blood Expiration Date HCLL Coding System [id number] HCLL Product Code D9610B44 HCLL Unit Number [id number] HCLL Dispense Status Released from Crossmatch_RE HCLL Blood Expiration Date HCLL Coding System QQVX633 HCLL Product Code V0680F86 HCLL Unit Number [id number] HCLL Dispense Status Released from Crossmatch_RE HCLL Blood Expiration Date HCLL Coding System VJZP008 HCLL Product Code K7036Y89 HCLL Unit Number [id number] HCLL Dispense Status Released from Crossmatch_RE HCLL Blood Expiration Date HCLL Coding System [id number] HCLL Blood Bank Product Ludin Jose MD BLOOD BANK PRODUCT ORDERABLES nal Result Performing Organization Address [facility] de Phone Number HC[facility] * Prepare RBC, leukoreduced, 5 Units (04/18/2025 7:53 PM EDT) Product Code E4668Y14 HCLL Unit Number [id number] HCLL Dispense Status Released from Crossmatch_RE HCLL Blood Expiration Date HCLL Coding System [id number] HCLL Product Code A5749V79 HCLL Unit Number [id number] HCLL Dispense Status Released from Crossmatch_RE HCLL Blood Expiration Date HCLL Coding System HZMZ001 HCLL Product Code Y6015H97 HCLL Unit Number [id number] HCLL Dispense Status Released from Crossmatch_RE HCLL Blood Expiration Date HCLL Coding System GWBJ792 HCLL Product Code V7406C21 HCLL Unit Number [id number] HCLL Dispense Status Released from Crossmatch_RE HCLL Blood Expiration Date HCLL Coding System CSXH917 HCLL Product Code C7261L21 HCLL Unit Number [id number] HCLL Dispense Status Released from Crossmatch_RE HCLL Blood Expiration Date HCLL Coding System [id number] HCLL Blood Bank Product Ludin Jose MD BLOOD BANK PRODUCT ORDERABLES nal Result Performing Organization Address [facility] de Phone Number HC[facility] * ECG 12 lead (MUSE) (04/18/2025 7:13 PM EDT) 04/18/2025 7:13 PM EDT Narrative MUSE - 04/19/2025 11:23 AM EDT Ventricular Rate: 90 BPM Atrial Rate: 90 BPM P-R Interval: 96 ms QRS Duration: 78 ms QT: 470 ms QTc: 574 ms P Josephine: 53 degrees R Josephine: 23 degrees T Josephine: 49 degrees Diagnosis Line: Critical Test Result: Long QTc ^ SINUS RHYTHM WITH SHORT HI ^ PROLONGED QT ^ ABNORMAL ECG ^ ^ Confirmed by Anthony RAMOS MD ([id number]) on 04/19/2025 11:23:16 AM Judith Murcia MD ECG ORDERABLES Final Result Performing Organization Address City/[facility]/ZIP Co de Phone Number MUSE * (ABNORMAL) POC Glucose Monitoring Device (04/18/2025 6:59 PM EDT) POC Glucose Monitoring Device 155(H) 70 - 100 mg/dL 04/18/2025 7:05 PM EDT [facility] Blood 04/18/2025 6:59 PM EDT 04/18/2025 7:05 PM EDT Ludin Jose MD POINT OF CARE TEST ORDERABLES Fi nal Result Performing Organization Address [facility] de Phone Number [facility] [address] * Calcium Free, Serum (04/18/2025 6:59 PM EDT) Free Calcium, Ser 4.77 4.40 - 5.40 mg/dL 04/18/2025 7:12 PM EDT [facility] Comment:Free calcium levels vary inversely with pH by approximately 5% for each 0.1 unit of pH change. Assay results have been normalized to pH = 7.40. Serum 04/18/2025 6:59 PM EDT 04/18/2025 7:03 PM EDT Narrative [facility] - 04/18/2025 7:12 PM EDT This test has been developed and its performance characteristics determined by [facility] which is certified under [...] Khan MD LAB BLOOD ORDERABLES Final Result [facility] [address] [facility] * (ABNORMAL) TEG-Standard Global Hemostasis (Rapid TEG with Heparin Effect, Contains a Baseline TEG) (04/18/2025 6:59 PM EDT) [facility] Citrated Kaolin Reaction Time (TEGHEPARINASE) 5.0 4.6 - 9.1 minutes 04/18/2025 8:06 PM EDT [facility] Citrated Rapid Teg Maximum Amplitude (TEGHEPARINASE) 52.6 52.0 - 70.0 mm 04/18/2025 8:06 PM EDT [facility] Citrated Functional Fibrinogen Maximum Amplitude (TEGHEPARINASE) 15.3 15.0 - 32.0 mm 04/18/2025 8:06 PM EDT [facility] Citrated Kaolin W/Heparinase Reaction Time (TEGHEPARINASE) 5.1 4.3 - 8.3 minutes 04/18/2025 8:06 PM EDT [facility] Citrated Kaolin K-Time (TEGHEPARINASE) 1.7(A) 0.8 - 2.1 minutes 04/18/2025 8:06 PM EDT [facility] Citrated Kaolin Angle (TEGHEPARINASE) 71.3(A) 63.0 - 78.0 degrees 04/18/2025 8:06 PM EDT [facility] Citrated Kaolin Maximum Amplitude (TEGHEPARINASE) 54.5 52.0 - 69.0 mm 04/18/2025 8:06 PM EDT [facility] Citrated Functional Fibrinogen- Fibrinogen Level (TEGHEPARINASE) 279.2 278.0 - 581.0 mg/dL 04/18/2025 8:06 PM EDT [facility] Whole Blood (Citrate) 04/18/2025 6:59 PM EDT 04/18/2025 7:03 PM EDT us Jostin Hess MD LAB BLOOD ORDERABLES Final Result [facility] [address] * (ABNORMAL) Lactic Acid (04/18/2025 6:59 PM EDT) Lactate 3.8(H) 0.5 - 2.2 mmol/L 04/18/2025 10:10 PM EDT [facility] Plasma 04/18/2025 6:59 PM EDT 04/18/2025 7:03 PM EDT Jostin Hess MD LAB BLOOD ORDERABLES Final Result [facility] [address] * Fibrinogen (04/18/2025 6:59 PM EDT) Fibrinogen 249 218 - 406 mg/dL 04/18/2025 7:14 PM EDT [facility] Plasma 04/18/2025 6:59 PM EDT 04/18/2025 7:03 PM EDT Jostin Hess MD LAB BLOOD ORDERABLES Final Result [facility] [address] * (ABNORMAL) Protime-INR (04/18/2025 6:59 PM EDT) Protime 21.5(H) 12.1 - 15.1 seconds 04/18/2025 7:44 PM EDT [facility] INR 1.8(H) 0.9 - 1.1 04/18/2025 7:44 PM EDT [facility] Comment: RECOMMENDED THERAPEUTIC RANGES USING INR : Stable oral anticoagulant therapy: 2.0 - 3.0 Mechanical prosthetic heart valve: 2.5 - 3.5 Recurrent acute myocardial infarction: 2.5 - 3.5 Plasma 04/18/2025 6:59 PM EDT 04/18/2025 7:03 PM EDT us Jostin Hess MD LAB BLOOD ORDERABLES Final Result [facility] [address] [place] [address], [facility] * (ABNORMAL) Blood gas, arterial (04/18/2025 6:59 PM EDT) O2 Sat, Arterial 100 04/18/2025 7:06 PM EDT [facility] [facility] FIO2 50 04/18/2025 7:06 PM EDT [facility] pH, Arterial 7.40 7.35 - 7.45 04/18/2025 7:06 PM EDT [facility] pCO2, Arterial 33(L) 35 - 45 mm Hg 04/18/2025 7:06 PM EDT [facility] pO2, Arterial 158(H) 80 - 100 mm Hg 04/18/2025 7:06 PM EDT [facility] HCO3, Arterial 22 22 - 26 mmol/L 04/18/2025 7:06 PM EDT [facility] CO2 Content,Arteri al 21(L) 23 - 27 mmol/L 04/18/2025 7:06 PM EDT [facility] Base Excess, Arterial -3.6(L) -2.0 - 3.0 mmol/L 04/18/2025 7:06 PM EDT [facility] %HBO2, Arterial 95.1 95.0 - 98.0 % 04/18/2025 7:06 PM EDT [facility] Carboxyhemoglo bin, Arterial 2.3 % 04/18/2025 7:06 PM EDT [facility] Comment: CARBOXYHEMOGLOBIN (CO) REFERENCE RANGES: Non-Smokers: <2 % Smokers: <8 % TOXIC: >20 % Methemoglobin, Arterial 2.4(H) 0.0 - 1.5 % 04/18/2025 7:06 PM EDT [facility] Reduced hemoglobin, Arterial 0.2 0.0 - 5.0 % 04/18/2025 7:06 PM EDT [facility] Blood, Arterial 04/18/2025 6 :59 PM EDT 04/18/2025 7:03 PM EDT Jostin Hess MD LAB BLOOD ORDERABLES Final Result [facility] [address] [facility]. [address] * Magnesium (04/18/2025 6:59 PM EDT) Magnesium 2.2 1.5 - 2.5 mg/dL 04/18/2025 10:28 PM EDT [facility] Plasma 04/18/2025 6:59 PM EDT 04/18/2025 7:03 PM EDT Jostin Hess MD LAB BLOOD ORDERABLES Final Result Performing Organization Address [facility] Co de Phone Number [facility] [address] * (ABNORMAL) Hepatic Function Panel (04/18/2025 6:59 PM EDT) Total Bilirubin 5.1(H) 0.0 - 1.5 mg/dL 04/18/2025 10:28 PM EDT [facility] Bilirubin, Direct 2.86(H) 0.00 - 0.40 mg/dL 04/18/2025 8:44 PM EDT [facility] AST 195(H) 13 - 39 U/L 04/18/2025 8:44 PM EDT [facility] ALT 127(H) 7 - 52 U/L 04/18/2025 10:28 PM EDT [facility] Alkaline Phosphatase 53 36 - 125 U/L 04/18/2025 10:28 PM EDT [facility] Total Protein 4.0(L) 6.4 - 8.9 g/dL 04/18/2025 8:44 PM EDT [facility] Albumin 2.7(L) 3.5 - 5.7 g/dL 04/18/2025 8:44 PM EDT [facility] Bilirubin, Indirect 2.24(H) 0.00 - 1.10 mg/dL 04/18/2025 10:28 PM EDT [facility] Plasma 04/18/2025 6:59 PM EDT 04/18/2025 7:03 PM EDT us Jostin Hess MD LAB BLOOD ORDERABLES Final Result [facility] [address] [place] [id number], [facility] * (ABNORMAL) Renal Function Panel w/EGFR (04/18/2025 6:59 PM EDT) Sodium 139 133 - 146 mmol/L 04/18/2025 8:44 PM EDT [facility] Potassium 3.6 3.5 - 5.3 mmol/L 04/18/2025 8:44 PM EDT [facility] Chloride 108 98 - 110 mmol/L 04/18/2025 8:44 PM EDT [facility] CO2 20(L) 21 - 33 mmol/L 04/18/2025 10:28 PM EDT [facility] Comment:High lactate dehydro genase concentrations in patient samples may cause falsely increased bicarbonate results. If markedly elevated LDH is observed or suspected, please assess results in conjunction with patient`s clinical presentation. In cases of discrepant results, consider evaluating CO2 in with a blood gas order. Anion Gap 11 3 - 16 mmol/L 04/18/2025 10:28 PM EDT [facility] BUN 11 7 - 25 mg/dL 04/18/2025 8:44 PM EDT [facility] Creatinine 0.66 0.60 - 1.30 mg/dL 04/18/2025 10:28 PM EDT [facility] Glucose 163(H) 70 - 100 mg/dL 04/18/2025 8:44 PM EDT [facility] Calcium 8.1(L) 8.6 - 10.3 mg/dL 04/18/2025 10:28 PM EDT [facility] Phosphorus 3.7 2.1 - 4.7 mg/dL 04/18/2025 10:28 PM EDT [facility] Albumin 2.7(L) 3.5 - 5.7 g/dL 04/18/2025 8:44 PM EDT [facility] Osmolality, Calculated 291 278 - 305 mOsm/kg 04/18/2025 8:44 PM EDT [facility] EGFR >90 04/18/2025 10:28 PM EDT [facility] Comment: As of 2021, the [...] [facility] Co de Phone Number [facility] [address] * (ABNORMAL) CBC (04/18/2025 6:59 PM EDT) WBC 8.7 3.8 - 10.8 10E3/uL 04/18/2025 7:16 PM EDT [facility] RBC 3.99 3.80 - 5.10 10E6/uL 04/18/2025 7:16 PM EDT [facility] Hemoglobin 12.3 11.7 - 15.5 g/dL 04/18/2025 7:16 PM EDT [facility] Hematocrit 35.8 35.0 - 45.0 % 04/18/2025 7:16 PM EDT [facility] MCV 89.7 80.0 - 100.0 fL 04/18/2025 7:16 PM EDT [facility] MCH 30.7 27.0 - 33.0 pg 04/18/2025 7:16 PM EDT [facility] MCHC 34.2 32.0 - 36.0 g/dL 04/18/2025 7:16 PM EDT [facility] RDW 16.4(H) 11.0 - 15.0 % 04/18/2025 7:16 PM EDT [facility] Platelets 84(L) 140 - 400 10E3/uL 04/18/2025 7:16 PM EDT [facility] MPV 8.2 7.5 - 11.5 fL 04/18/2025 7:16 PM EDT [facility] Whole Blood 04/18/2025 6:59 PM EDT 04/18/2025 7:03 PM EDT Jostin Hess MD LAB BLOOD ORDERABLES Final Result [facility] [address] * POC Sample Type (04/18/2025 5:00 PM EDT) [facility] POC Sample Type Arterial 04/18/2025 5:34 PM EDT [facility] Blood, Arterial 04/18/2025 5 :00 PM EDT 04/18/2025 5:34 PM EDT Ludin Jose MD POINT OF CARE TEST ORDERABLES Fi nal Result [facility] [address] * POC Anion Gap (04/18/2025 5:00 PM EDT) [facility] POC Anion Gap, Arterial 9 3 - 16 mmol/L 04/18/2025 5:34 PM EDT [facility] Blood, Arterial 04/18/2025 5 :00 PM EDT 04/18/2025 5:34 PM EDT us Ludin Jose MD POINT OF CARE TEST ORDERABLES Fi nal Result Performing Organization Address [facility] de Phone Number [facility] [address] [place] [address]. [address] * POC Chloride (04/18/2025 5:00 PM EDT) POC Chloride 109 98 - 110 mmol/L 04/18/2025 5:34 PM EDT [facility] Blood, Arterial 04/18/2025 5 :00 PM EDT 04/18/2025 5:34 PM EDT us Ludin Jose MD POINT OF CARE TEST ORDERABLES Fi nal Result Performing Organization Address [facility] de Phone Number [facility] [address] [place] [address]. [address] * (ABNORMAL) POC Hemoglobin (04/18/2025 5:00 PM EDT) POC Hemoglobin 9.6(L) 12.0 - 16.0 g/dL 04/18/2025 5:34 PM EDT [facility] Blood, Arterial 04/18/2025 5 :00 PM EDT 04/18/2025 5:34 PM EDT us Ludin Jose MD POINT OF CARE TEST ORDERABLES Fi nal Result Performing Organization Address [facility] de Phone Number [facility] [address] [place] [address]. [address] * (ABNORMAL) POC hematocrit (04/18/2025 5:00 PM EDT) POC Hematocrit 28.0(L) 35 - 45 % 04/18/2025 5:34 PM EDT [facility] Blood, Arterial 04/18/2025 5 :00 PM EDT 04/18/2025 5:34 PM EDT us Ludin Jose MD POINT OF CARE TEST ORDERABLES Fi nal Result Performing Organization Address [facility] Co de Phone Number [facility] [address] [place] [address]. [address] * (ABNORMAL) POC Lactate (04/18/2025 5:00 PM EDT) POC Lactate 3.63(H) 0.50 - 2.20 mmol/L 04/18/2025 5:34 PM EDT [facility] Blood, Arterial 04/18/2025 5 :00 PM EDT 04/18/2025 5:34 PM EDT Ludin Jose MD POINT OF CARE TEST ORDERABLES Fi nal Result Performing Organization Address [facility] Co de Phone Number [facility] [address] [place] [address]. [address] * (ABNORMAL) POC Glucose (04/18/2025 5:00 PM EDT) POC Glucose, Arterial 136(H) 70 - 100 mg/dL 04/18/2025 5:34 PM EDT [facility] Blood, Arterial 04/18/2025 5 :00 PM EDT 04/18/2025 5:34 PM EDT us Ludin Jose MD POINT OF CARE TEST ORDERABLES Fi nal Result Performing Organization Address [facility] Co de Phone Number [facility] [address] [place] [address]. [address] * POC Ionized Calcium (04/18/2025 5:00 PM EDT) POC Ionized Calcium 5.00 4.50 - 5.30 mg/dL 04/18/2025 5:34 PM EDT [facility] Blood, Arterial 04/18/2025 5 :00 PM EDT 04/18/2025 5:34 PM EDT us Ludin Jose MD POINT OF CARE TEST ORDERABLES Fi nal Result Performing Organization Address City/[facility] Co de Phone Number [facility] [address] * POC Potassium (04/18/2025 5:00 PM EDT) POC Potassium 3.5 3.5 - 5.3 mmol/L 04/18/2025 5:34 PM EDT [facility] Blood, Arterial 04/18/2025 5 :00 PM EDT 04/18/2025 5:34 PM EDT Ludin Jose MD POINT OF CARE TEST ORDERABLES Fi nal Result Performing Organization Address [facility] Co de Phone Number [facility] [address] [facility]. [address] * POC Sodium (04/18/2025 5:00 PM EDT) POC Sodium 140 136 - 146 mmol/L 04/18/2025 5:34 PM EDT [facility] Blood, Arterial 04/18/2025 5 :00 PM EDT 04/18/2025 5:34 PM EDT us Ludin Jose MD POINT OF CARE TEST ORDERABLES Fi nal Result Performing Organization Address [facility] Co de Phone Number [facility] [address] [place] [facility]. [address] * POC TCO2 (04/18/2025 5:00 PM EDT) POC TCO2, Arterial 24 23 - 27 mmol/L 04/18/2025 5:34 PM EDT [facility] Blood, Arterial 04/18/2025 5 :00 PM EDT 04/18/2025 5:34 PM EDT us Ludin Jose MD POINT OF CARE TEST ORDERABLES Fi nal Result Performing Organization Address City/[facility]/ZIP Co de Phone Number [facility] [address] * (ABNORMAL) POC O2 SAT (04/18/2025 5:00 PM EDT) POC O2 Saturation, Arterial 100(H) 95 - 98 % 04/18/2025 5:34 PM EDT [facility] Blood, Arterial 04/18/2025 5 :00 PM EDT 04/18/2025 5:34 PM EDT Ludin Jose MD POINT OF CARE TEST ORDERABLES Fi nal Result Performing Organization Address City/[facility] Co de Phone Number [facility] [address] [place] [address]. [address] * (ABNORMAL) POC Base Excess (04/18/2025 5:00 PM EDT) Pathologist [facility] POC Base Excess, Arterial -3(L) -2 - 3 mmol/L 04/18/2025 5:34 PM EDT [facility] Blood, Arterial 04/18/2025 5 :00 PM EDT 04/18/2025 5:34 PM EDT Ludin Jose MD POINT OF CARE TEST ORDERABLES Fi nal Result Performing Organization Address [facility] Co de Phone Number [facility] [address] [place] [address]. [address] * POC HCO3 (04/18/2025 5:00 PM EDT) POC HCO3, Arterial 22 22 - 26 mmol/L 04/18/2025 5:34 PM EDT [facility] Blood, Arterial 04/18/2025 5 :00 PM EDT 04/18/2025 5:34 PM EDT Ludin Jose MD POINT OF CARE TEST ORDERABLES Fi nal Result Performing Organization Address City/[facility] Co de Phone Number [facility] [address] [facility]. [address] * (ABNORMAL) POC PO2 (04/18/2025 5:00 PM EDT) POC pO2, Arterial 178(H) 80 - 100 mm Hg 04/18/2025 5:34 PM EDT [facility] Blood, Arterial 04/18/2025 5 :00 PM EDT 04/18/2025 5:34 PM EDT Ludin Jose MD POINT OF CARE TEST ORDERABLES Fi nal Result Performing Organization Address City/[facility]/ZIP Co de Phone Number [facility] [address] [place] [address]. [address] * POC PCO2 (04/18/2025 5:00 PM EDT) POC pCO2, Arterial 38 35 - 45 mm Hg 04/18/2025 5:34 PM EDT [facility] Blood, Arterial 04/18/2025 5 :00 PM EDT 04/18/2025 5:34 PM EDT Ludin Jose MD POINT OF CARE TEST ORDERABLES Fi nal Result Performing Organization Address [facility] Co de Phone Number [facility] [address] [facility]. [address] * POC pH (04/18/2025 5:00 PM EDT) Pathologist [facility] POC pH, Arterial 7.38 7.35 - 7.45 04/18/2025 5:34 PM EDT [facility] Blood, Arterial 04/18/2025 5 :00 PM EDT 04/18/2025 5:34 PM EDT Ludin Jose MD POINT OF CARE TEST ORDERABLES Fi nal Result Performing Organization Address City/[facility] Co de Phone Number [facility] [address] [place] [address]. [address] * (ABNORMAL) POC INR (04/18/2025 4:54 PM EDT) Prothrombin Time INR, POC 1.6(H) 0.8 - 1.4 04/19/2025 6:33 AM EDT [facility] Comment: Test results may vary using different testing platforms. Serial result monitoring should be performed using the same methodology. RECOMMENDED THERAPEUTIC RANGES USING INR : Stable oral anticoagulant therapy: 2.0 - 3.0 Mechanical prosthetic heart valve: 2.5 - 3.5 Recurrent acute myocardial infarction: 2.5 - 3.5 Blood 04/18/2025 4:54 PM EDT 04/19/2025 6:32 AM EDT Ludni Jose MD POINT OF CARE TEST ORDERABLES Fi nal Result Performing Organization Address [facility] Co de Phone Number [facility] [address] [facility]. [address] * Transfuse Cryoprecipitate (04/18/2025 4:07 PM EDT) Result [facility] Mario Chan MD NURSING TREATMENT ORDERABL ES - BLOOD ADMIN Final Result * Transfuse Cryoprecipitate (04/18/2025 4:02 PM EDT) Result [facility] Mario Chan MD NURSING TREATMENT ORDERABL ES - BLOOD ADMIN Final Result * POC Sample Type (04/18/2025 4:00 PM EDT) [facility] POC Sample Type Arterial 04/18/2025 4:58 PM EDT [facility] Blood, Arterial 04/18/2025 4 :00 PM EDT 04/18/2025 4:58 PM EDT Ludin Jose MD POINT OF CARE TEST ORDERABLES Fi nal Result Performing Organization Address [facility] Co de Phone Number [facility] [address] [facility]. [address] * POC Anion Gap (04/18/2025 4:00 PM EDT) Pathologist [facility] POC Anion Gap, Arterial 10 3 - 16 mmol/L 04/18/2025 4:58 PM EDT [facility] Blood, Arterial 04/18/2025 4 :00 PM EDT 04/18/2025 4:58 PM EDT us Ludin Jose MD POINT OF CARE TEST ORDERABLES Fi nal Result Performing Organization Address City/[facility] Co de Phone Number [facility] [address] [place] [address]. [address] * POC Chloride (04/18/2025 4:00 PM EDT) POC Chloride 108 98 - 110 mmol/L 04/18/2025 4:58 PM EDT [facility] Blood, Arterial 04/18/2025 4 :00 PM EDT 04/18/2025 4:58 PM EDT us Ludin Jose MD POINT OF CARE TEST ORDERABLES Fi nal Result Performing Organization Address [facility] de Phone Number [facility] [address] [place] [address]. [address] * (ABNORMAL) POC Hemoglobin (04/18/2025 4:00 PM EDT) POC Hemoglobin 9.6(L) 12.0 - 16.0 g/dL 04/18/2025 4:58 PM EDT [facility] Blood, Arterial 04/18/2025 4 :00 PM EDT 04/18/2025 4:58 PM EDT us Ludin Jose MD POINT OF CARE TEST ORDERABLES Fi nal Result Performing Organization Address [facility] Co de Phone Number [facility] [address] [place] [address]. [address] * (ABNORMAL) POC hematocrit (04/18/2025 4:00 PM EDT) POC Hematocrit 28.0(L) 35 - 45 % 04/18/2025 4:58 PM EDT [facility] Blood, Arterial 04/18/2025 4 :00 PM EDT 04/18/2025 4:58 PM EDT us Ludin Jose MD POINT OF CARE TEST ORDERABLES Fi nal Result [facility] [address]. [address] * (ABNORMAL) POC Lactate (04/18/2025 4:00 PM EDT) POC Lactate 2.56(H) 0.50 - 2.20 mmol/L 04/18/2025 4:58 PM EDT [facility] Blood, Arterial 04/18/2025 4 :00 PM EDT 04/18/2025 4:58 PM EDT us Ludin Jose MD POINT OF CARE TEST ORDERABLES Fi nal Result Performing Organization Address [facility] Co de Phone Number [facility] [address] [facility]. [address] * (ABNORMAL) POC Glucose (04/18/2025 4:00 PM EDT) POC Glucose, Arterial 133(H) 70 - 100 mg/dL 04/18/2025 4:58 PM EDT [facility] Blood, Arterial 04/18/2025 4 :00 PM EDT 04/18/2025 4:58 PM EDT us Ludin Jose MD POINT OF CARE TEST ORDERABLES Fi nal Result Performing Organization Address [facility] de Phone Number [facility] [address] * POC Ionized Calcium (04/18/2025 4:00 PM EDT) POC Ionized Calcium 5.20 4.50 - 5.30 mg/dL 04/18/2025 4:58 PM EDT [facility] Blood, Arterial 04/18/2025 4 :00 PM EDT 04/18/2025 4:58 PM EDT us Ludin Jose MD POINT OF CARE TEST ORDERABLES Fi nal Result Performing Organization Address City/[facility] Co de Phone Number [facility] [address] [facility]. [address] * POC Potassium (04/18/2025 4:00 PM EDT) POC Potassium 3.8 3.5 - 5.3 mmol/L 04/18/2025 4:58 PM EDT [facility] Blood, Arterial 04/18/2025 4 :00 PM EDT 04/18/2025 4:58 PM EDT us Ludin Jose MD POINT OF CARE TEST ORDERABLES Fi nal Result [facility] [address] [facility]. [address] * POC Sodium (04/18/2025 4:00 PM EDT) Pathologist [facility] POC Sodium 141 136 - 146 mmol/L 04/18/2025 4:58 PM EDT [facility] Blood, Arterial 04/18/2025 4 :00 PM EDT 04/18/2025 4:58 PM EDT Ludin Jose MD POINT OF CARE TEST ORDERABLES Fi nal Result Performing Organization Address City/[facility] Co de Phone Number [facility] [address] [facility]. [address] * POC TCO2 (04/18/2025 4:00 PM EDT) Pathologist [facility] POC TCO2, Arterial 24 23 - 27 mmol/L 04/18/2025 4:58 PM EDT [facility] Blood, Arterial 04/18/2025 4 :00 PM EDT 04/18/2025 4:58 PM EDT us Ludin Jose MD POINT OF CARE TEST ORDERABLES Fi nal Result [facility] [address] [facility]. [address] * (ABNORMAL) POC O2 SAT (04/18/2025 4:00 PM EDT) POC O2 Saturation, Arterial 100(H) 95 - 98 % 04/18/2025 4:58 PM EDT [facility] Blood, Arterial 04/18/2025 4 :00 PM EDT 04/18/2025 4:58 PM EDT Ludin Jose MD POINT OF CARE TEST ORDERABLES Fi nal Result Performing Organization Address City/[facility]/ZIP Co de Phone Number [facility] [address] * (ABNORMAL) POC Base Excess (04/18/2025 4:00 PM EDT) POC Base Excess, Arterial -3(L) -2 - 3 mmol/L 04/18/2025 4:58 PM EDT [facility] Blood, Arterial 04/18/2025 4 :00 PM EDT 04/18/2025 4:58 PM EDT Ludin Jose MD POINT OF CARE TEST ORDERABLES Fi nal Result Performing Organization Address City/[facility] Co de Phone Number [facility] [address] [facility]. [address] * POC HCO3 (04/18/2025 4:00 PM EDT) POC HCO3, Arterial 23 22 - 26 mmol/L 04/18/2025 4:58 PM EDT [facility] Blood, Arterial 04/18/2025 4 :00 PM EDT 04/18/2025 4:58 PM EDT Ludin Jose MD POINT OF CARE TEST ORDERABLES Fi nal Result Performing Organization Address City/State/[facility] Co de Phone Number [facility] [address] [facility]. [address] * (ABNORMAL) POC PO2 (04/18/2025 4:00 PM EDT) POC pO2, Arterial 290(H) 80 - 100 mm Hg 04/18/2025 4:58 PM EDT [facility] Blood, Arterial 04/18/2025 4 :00 PM EDT 04/18/2025 4:58 PM EDT us Ludin Jose MD POINT OF CARE TEST ORDERABLES Fi nal Result Performing Organization Address City/[facility]/ZIP Co de Phone Number [facility] [address] [facility]. [address] * POC PCO2 (04/18/2025 4:00 PM EDT) POC pCO2, Arterial 41 35 - 45 mm Hg 04/18/2025 4:58 PM EDT [facility] Blood, Arterial 04/18/2025 4 :00 PM EDT 04/18/2025 4:58 PM EDT us Ludin Jose MD POINT OF CARE TEST ORDERABLES Fi nal Result Performing Organization Address [facility] Co de Phone Number [facility] [address] [facility]. [address] * POC pH (04/18/2025 4:00 PM EDT) POC pH, Arterial 7.35 7.35 - 7.45 04/18/2025 4:58 PM EDT [facility] Blood, Arterial 04/18/2025 4 :00 PM EDT 04/18/2025 4:58 PM EDT us Ludin Jose MD POINT OF CARE TEST ORDERABLES Fi nal Result Performing Organization Address City/[facility] Co de Phone Number [facility] [address] [facility]. [address] * POC INR (04/18/2025 3:55 PM EDT) Prothrombin Time INR, POC 1.4 0.8 - 1.4 04/19/2025 6:33 AM EDT [facility] Comment: Test results may vary using different testing platforms. Serial result monitoring should be performed using the same methodology. RECOMMENDED THERAPEUTIC RANGES USING INR : Stable oral anticoagulant therapy: 2.0 - 3.0 Mechanical prosthetic heart valve: 2.5 - 3.5 Recurrent acute myocardial infarction: 2.5 - 3.5 Blood 04/18/2025 3:55 PM EDT 04/19/2025 6:32 AM EDT us Ludin Jose MD POINT OF CARE TEST ORDERABLES Fi nal Result Performing Organization Address City/[facility] Co de Phone Number [facility] [address] [place] [address]. [address] * POC Sample Type (04/18/2025 3:06 PM EDT) Pathologist [facility] POC Sample Type Arterial 04/18/2025 3:58 PM EDT [facility] Blood, Arterial 04/18/2025 3 :06 PM EDT 04/18/2025 3:58 PM EDT us Ludin Jose MD POINT OF CARE TEST ORDERABLES Fi nal Result Performing Organization Address [facility] [facility] Co de Phone Number [facility] [address] [facility]. [address] * POC Anion Gap (04/18/2025 3:06 PM EDT) [facility] POC Anion Gap, Arterial 10 3 - 16 mmol/L 04/18/2025 3:58 PM EDT [facility] Blood, Arterial 04/18/2025 3 :06 PM EDT 04/18/2025 3:58 PM EDT us Ludin Jose MD POINT OF CARE TEST ORDERABLES Fi nal Result Performing Organization Address City/[facility] Co de Phone Number [facility] [address] [place] [address]. [address] * POC Chloride (04/18/2025 3:06 PM EDT) Pathologist [facility] POC Chloride 107 98 - 110 mmol/L 04/18/2025 3:58 PM EDT [facility] Blood, Arterial 04/18/2025 3 :06 PM EDT 04/18/2025 3:58 PM EDT us Ludin Jose MD POINT OF CARE TEST ORDERABLES Fi nal Result Performing Organization Address [facility] Co de Phone Number [facility] [address] [facility]. [address] * (ABNORMAL) POC Hemoglobin (04/18/2025 3:06 PM EDT) POC Hemoglobin 9.2(L) 12.0 - 16.0 g/dL 04/18/2025 3:58 PM EDT [facility] Blood, Arterial 04/18/2025 3 :06 PM EDT 04/18/2025 3:58 PM EDT us Ludin Jose MD POINT OF CARE TEST ORDERABLES Fi nal Result Performing Organization Address [facility] Co de Phone Number [facility] [address] [place] [address]. [address] * (ABNORMAL) POC hematocrit (04/18/2025 3:06 PM EDT) POC Hematocrit 27.0(L) 35 - 45 % 04/18/2025 3:58 PM EDT [facility] Blood, Arterial 04/18/2025 3 :06 PM EDT 04/18/2025 3:58 PM EDT us Ludin Jose MD POINT OF CARE TEST ORDERABLES Fi nal Result Performing Organization Address [facility] Co de Phone Number [facility] [address] [facility]. [address] * (ABNORMAL) POC Lactate (04/18/2025 3:06 PM EDT) POC Lactate 3.12(H) 0.50 - 2.20 mmol/L 04/18/2025 3:58 PM EDT [facility] Blood, Arterial 04/18/2025 3 :06 PM EDT 04/18/2025 3:58 PM EDT us Ludin Jose MD POINT OF CARE TEST ORDERABLES Fi nal Result Performing Organization Address [facility] Co de Phone Number [facility] [address] [place] [address]. [address] * (ABNORMAL) POC Glucose (04/18/2025 3:06 PM EDT) POC Glucose, Arterial 144(H) 70 - 100 mg/dL 04/18/2025 3:58 PM EDT [facility] Blood, Arterial 04/18/2025 3 :06 PM EDT 04/18/2025 3:58 PM EDT us Ludin Jose MD POINT OF CARE TEST ORDERABLES Fi nal Result Performing Organization Address [facility] de Phone Number [facility] [address] [place] [address]. [address] * POC Ionized Calcium (04/18/2025 3:06 PM EDT) POC Ionized Calcium 4.90 4.50 - 5.30 mg/dL 04/18/2025 3:58 PM EDT [facility] Blood, Arterial 04/18/2025 3 :06 PM EDT 04/18/2025 3:58 PM EDT us Ludin Jose MD POINT OF CARE TEST ORDERABLES Fi nal Result Performing Organization Address [facility] Co de Phone Number [facility] [address] [place] [address]. [address] * POC Potassium (04/18/2025 3:06 PM EDT) POC Potassium 4.0 3.5 - 5.3 mmol/L 04/18/2025 3:58 PM EDT [facility] Blood, Arterial 04/18/2025 3 :06 PM EDT 04/18/2025 3:58 PM EDT us Ludin Jose MD POINT OF CARE TEST ORDERABLES Fi nal Result [facility] [address] * POC Sodium (04/18/2025 3:06 PM EDT) POC Sodium 139 136 - 146 mmol/L 04/18/2025 3:58 PM EDT [facility] Blood, Arterial 04/18/2025 3 :06 PM EDT 04/18/2025 3:58 PM EDT us Ludin Jose MD POINT OF CARE TEST ORDERABLES Fi nal Result Performing Organization Address [facility] Co de Phone Number [facility] [address] [facility]. [address] * POC TCO2 (04/18/2025 3:06 PM EDT) POC TCO2, Arterial 23 23 - 27 mmol/L 04/18/2025 3:58 PM EDT [facility] Blood, Arterial 04/18/2025 3 :06 PM EDT 04/18/2025 3:58 PM EDT us Ludin Jose MD POINT OF CARE TEST ORDERABLES Fi nal Result Performing Organization Address City/[facility] Co de Phone Number [facility] [address] * (ABNORMAL) POC O2 SAT (04/18/2025 3:06 PM EDT) POC O2 Saturation, Arterial 99(H) 95 - 98 % 04/18/2025 3:58 PM EDT [facility] Blood, Arterial 04/18/2025 3 :06 PM EDT 04/18/2025 3:58 PM EDT us Ludin Jose MD POINT OF CARE TEST ORDERABLES Fi nal Result Performing Organization Address City/[facility]/ZIP Co de Phone Number [facility] [address] * (ABNORMAL) POC Base Excess (04/18/2025 3:06 PM EDT) POC Base Excess, Arterial -3(L) -2 - 3 mmol/L 04/18/2025 3:58 PM EDT [facility] Blood, Arterial 04/18/2025 3 :06 PM EDT 04/18/2025 3:58 PM EDT us Ludin Jose MD POINT OF CARE TEST ORDERABLES Fi nal Result [facility] [address] * POC HCO3 (04/18/2025 3:06 PM EDT) POC HCO3, Arterial 22 22 - 26 mmol/L 04/18/2025 3:58 PM EDT [facility] Blood, Arterial 04/18/2025 3 :06 PM EDT 04/18/2025 3:58 PM EDT us Ludin Jose MD POINT OF CARE TEST ORDERABLES Fi nal Result Performing Organization Address City/[facility] Co de Phone Number [facility] [address] * (ABNORMAL) POC PO2 (04/18/2025 3:06 PM EDT) POC pO2, Arterial 152(H) 80 - 100 mm Hg 04/18/2025 3:58 PM EDT [facility] Blood, Arterial 04/18/2025 3 :06 PM EDT 04/18/2025 3:58 PM EDT us Ludin Jose MD POINT OF CARE TEST ORDERABLES Fi nal Result [facility] [address] * POC PCO2 (04/18/2025 3:06 PM EDT) POC pCO2, Arterial 36 35 - 45 mm Hg 04/18/2025 3:58 PM EDT [facility] Blood, Arterial 04/18/2025 3 :06 PM EDT 04/18/2025 3:58 PM EDT us Ludin Jose MD POINT OF CARE TEST ORDERABLES Fi nal Result Performing Organization Address City/[facility] Co de Phone Number [facility] [address] [employer] [facility]. [address] * POC pH (04/18/2025 3:06 PM EDT) POC pH, Arterial 7.39 7.35 - 7.45 04/18/2025 3:58 PM EDT [facility] Blood, Arterial 04/18/2025 3 :06 PM EDT 04/18/2025 3:58 PM EDT us Ludin Jose MD POINT OF CARE TEST ORDERABLES Fi nal Result Performing Organization Address [facility] de Phone Number [facility] [address] [employer] [facility]. [address] * (ABNORMAL) POC INR (04/18/2025 3:01 PM EDT) Prothrombin Time INR, POC 1.5(H) 0.8 - 1.4 04/19/2025 6:33 AM EDT [facility] Comment: Test results may vary using different testing platforms. Serial result monitoring should be performed using the same methodology. RECOMMENDED THERAPEUTIC RANGES USING INR : Stable oral anticoagulant therapy: 2.0 - 3.0 Mechanical prosthetic heart valve: 2.5 - 3.5 Recurrent acute myocardial infarction: 2.5 - 3.5 Blood 04/18/2025 3:01 PM EDT 04/19/2025 6:32 AM EDT us Ludin Jose MD POINT OF CARE TEST ORDERABLES Fi nal Result Performing Organization Address [facility] Co de Phone Number [facility] [address] * Transfuse Fresh Frozen Plasma Transfusion Rate: Per dept routine (04/18/2025 2:40 PM EDT) Result [facility] us Ludin Jose MD NURSING TREATMENT ORDERABLES - B LOOD ADMIN Final Result * Transfuse Platelets (04/18/2025 2:37 PM EDT) us Mario Chan MD NURSING TREATMENT ORDERABL ES - BLOOD ADMIN Final Result * POC Sample Type (04/18/2025 2:10 PM EDT) Pathologist [facility] POC Sample Type Arterial 04/18/2025 3:03 PM EDT [facility] Blood, Arterial 04/18/2025 2 :10 PM EDT 04/18/2025 3:03 PM EDT us Ludin Jose MD POINT OF CARE TEST ORDERABLES Fi nal Result Performing Organization Address City/[facility]/ZIP Co de Phone Number [address] * POC Anion Gap (04/18/2025 2:10 PM EDT) [facility] POC Anion Gap, Arterial 10 3 - 16 mmol/L 04/18/2025 3:03 PM EDT [facility] Blood, Arterial 04/18/2025 2 :10 PM EDT 04/18/2025 3:03 PM EDT Result [facility] us Ludin Jose MD POINT OF CARE TEST ORDERABLES Fi nal Result [facility] [address] [facility]. [address] * POC Chloride (04/18/2025 2:10 PM EDT) Pathologist [facility] POC Chloride 107 98 - 110 mmol/L 04/18/2025 3:03 PM EDT [facility] Blood, Arterial 04/18/2025 2 :10 PM EDT 04/18/2025 3:03 PM EDT us Ludin Jose MD POINT OF CARE TEST ORDERABLES Fi nal Result Performing Organization Address City/[facility]/ZIP Co de Phone Number [facility] [address] [facility]. [address] * (ABNORMAL) POC Hemoglobin (04/18/2025 2:10 PM EDT) POC Hemoglobin 9.0(L) 12.0 - 16.0 g/dL 04/18/2025 3:03 PM EDT [facility] Blood, Arterial 04/18/2025 2 :10 PM EDT 04/18/2025 3:03 PM EDT us Ludin Jose MD POINT OF CARE TEST ORDERABLES Fi nal Result Performing Organization Address [facility] Co de Phone Number [facility] [address] [facility]. [address] * (ABNORMAL) POC hematocrit (04/18/2025 2:10 PM EDT) POC Hematocrit 26.0(L) 35 - 45 % 04/18/2025 3:03 PM EDT [facility] Blood, Arterial 04/18/2025 2 :10 PM EDT 04/18/2025 3:03 PM EDT us Ludin Jose MD POINT OF CARE TEST ORDERABLES Fi nal Result Performing Organization Address City/[facility] Co de Phone Number [facility] [address] [facility]. [address] * (ABNORMAL) POC Lactate (04/18/2025 2:10 PM EDT) POC Lactate 2.87(H) 0.50 - 2.20 mmol/L 04/18/2025 3:03 PM EDT [facility] Blood, Arterial 04/18/2025 2 :10 PM EDT 04/18/2025 3:03 PM EDT us Ludin Jose MD POINT OF CARE TEST ORDERABLES Fi nal Result Performing Organization Address [facility] Co de Phone Number [facility] [address] [facility]. [address] * (ABNORMAL) POC Glucose (04/18/2025 2:10 PM EDT) POC Glucose, Arterial 158(H) 70 - 100 mg/dL 04/18/2025 3:03 PM EDT [facility] Blood, Arterial 04/18/2025 2 :10 PM EDT 04/18/2025 3:03 PM EDT Ludin Jose MD POINT OF CARE TEST ORDERABLES Fi nal Result Performing Organization Address [facility] Co de Phone Number [facility] [address] [facility]. [address] * (ABNORMAL) POC Ionized Calcium (04/18/2025 2:10 PM EDT) POC Ionized Calcium 5.40(H) 4.50 - 5.30 mg/dL 04/18/2025 3:03 PM EDT [facility] Blood, Arterial 04/18/2025 2 :10 PM EDT 04/18/2025 3:03 PM EDT us Ludin Jose MD POINT OF CARE TEST ORDERABLES Fi nal Result Performing Organization Address [facility] Co de Phone Number [facility] [address] [facility]. [address] * POC Potassium (04/18/2025 2:10 PM EDT) POC Potassium 4.2 3.5 - 5.3 mmol/L 04/18/2025 3:03 PM EDT [facility] Blood, Arterial 04/18/2025 2 :10 PM EDT 04/18/2025 3:03 PM EDT us Ludin Jose MD POINT OF CARE TEST ORDERABLES Fi nal Result [facility] [address] * POC Sodium (04/18/2025 2:10 PM EDT) POC Sodium 139 136 - 146 mmol/L 04/18/2025 3:03 PM EDT [facility] Blood, Arterial 04/18/2025 2 :10 PM EDT 04/18/2025 3:03 PM EDT us Ludin Jose MD POINT OF CARE TEST ORDERABLES Fi nal Result Performing Organization Address City/[facility]/ZIP Co de Phone Number [facility] [address] * POC TCO2 (04/18/2025 2:10 PM EDT) POC TCO2, Arterial 23 23 - 27 mmol/L 04/18/2025 3:03 PM EDT [facility] Blood, Arterial 04/18/2025 2 :10 PM EDT 04/18/2025 3:03 PM EDT us Ludin Jose MD POINT OF CARE TEST ORDERABLES Fi nal Result Performing Organization Address [facility] Co de Phone Number [facility] [address] [facility]. [address] * (ABNORMAL) POC O2 SAT (04/18/2025 2:10 PM EDT) POC O2 Saturation, Arterial 100(H) 95 - 98 % 04/18/2025 3:03 PM EDT [facility] Blood, Arterial 04/18/2025 2 :10 PM EDT 04/18/2025 3:03 PM EDT us Ludin Jose MD POINT OF CARE TEST ORDERABLES Fi nal Result Performing Organization Address City/[facility]/ZIP Co de Phone Number [facility] [address] * POC Base Excess (04/18/2025 2:10 PM EDT) POC Base Excess, Arterial -2 -2 - 3 mmol/L 04/18/2025 3:03 PM EDT [facility] Blood, Arterial 04/18/2025 2 :10 PM EDT 04/18/2025 3:03 PM EDT us Ludin Jose MD POINT OF CARE TEST ORDERABLES Fi nal Result Performing Organization Address City/[facility] Co de Phone Number [facility] [address] [place] [address]. [address] * POC HCO3 (04/18/2025 2:10 PM EDT) POC HCO3, Arterial 22 22 - 26 mmol/L 04/18/2025 3:03 PM EDT [facility] Blood, Arterial 04/18/2025 2 :10 PM EDT 04/18/2025 3:03 PM EDT us Ludin Jose MD POINT OF CARE TEST ORDERABLES Fi nal Result Performing Organization Address [facility] Co de Phone Number [facility] [address] [place] [address]. [address] * (ABNORMAL) POC PO2 (04/18/2025 2:10 PM EDT) POC pO2, Arterial 175(H) 80 - 100 mm Hg 04/18/2025 3:03 PM EDT [facility] Blood, Arterial 04/18/2025 2 :10 PM EDT 04/18/2025 3:03 PM EDT us Ludin Jose MD POINT OF CARE TEST ORDERABLES Fi nal Result Performing Organization Address City/[facility] Co de Phone Number [facility] [address] [place] [address]. [address] * (ABNORMAL) POC PCO2 (04/18/2025 2:10 PM EDT) POC pCO2, Arterial 33(L) 35 - 45 mm Hg 04/18/2025 3:03 PM EDT [facility] Blood, Arterial 04/18/2025 2 :10 PM EDT 04/18/2025 3:03 PM EDT Ludin Jose MD POINT OF CARE TEST ORDERABLES Fi nal Result Performing Organization Address [facility] Co de Phone Number [facility] [address] [facility]. [address] * POC pH (04/18/2025 2:10 PM EDT) POC pH, Arterial 7.43 7.35 - 7.45 04/18/2025 3:03 PM EDT [facility] Blood, Arterial 04/18/2025 2 :10 PM EDT 04/18/2025 3:03 PM EDT Ludin Jose MD POINT OF CARE TEST ORDERABLES Fi nal Result Performing Organization Address [facility] Co de Phone Number [facility] [address] [facility]. [address] * (ABNORMAL) POC INR (04/18/2025 2:05 PM EDT) Prothrombin Time INR, POC 2.2(H) 0.8 - 1.4 04/19/2025 6:33 AM EDT [facility] Comment: Test results may vary [...] ORDERABLES Fi nal Result Performing Organization Address [facility] Co de Phone Number [facility] [address] [facility] [place] [address], [place] * Transfuse Platelets (04/18/2025 2:00 PM EDT) Mario Chan MD NURSING TREATMENT ORDERABL ES - BLOOD ADMIN Final Result * (ABNORMAL) Fibrinogen (04/18/2025 1:52 PM EDT) Fibrinogen 130(L) 218 - 406 mg/dL 04/18/2025 2:30 PM EDT [facility] Plasma 04/18/2025 1:52 PM EDT 04/18/2025 2:03 PM EDT Mario Chan MD LAB BLOOD ORDERABLES Final Result [facility] [address] * (ABNORMAL) TEG-Bypass/ECMO/Liver HN (Factor function, Platelet/Fibrin Clot Strength w/Clot Breakdown, Heparinase In All Channels) (04/18/2025 1:52 PM EDT) Citrated Kaolin Reaction Time (TEGECMOLIVER) Unable to reach an endpoint / Test Timed Out 4.6 - 9.1 minutes 04/18/2025 3:30 PM EDT [facility] Citrated Kaolin W/Heparinase Reaction Time (TEGECMOLIVER) 7.3 4.3 - 8.3 minutes 04/18/2025 3:30 PM EDT [facility] Citrated Kaolin Maximum Amplitude (TEGECMOLIVER) Unable to reach an endpoint / Test Timed Out 52.0 - 69.0 mm 04/18/2025 3:30 PM EDT [facility] Citrated Functional Fibrinogen W/Heparinase Maximum Amplitude(TEGE CMOLIVER) 11.0(L) 15.0 - 34.0 mm 04/18/2025 3:30 PM EDT [facility] Citrated Rapid Teg W/Heparinase Maximum Amplitude (TEGECMOLIVER) 43.2(L) 53.0 - 69.0 mm 04/18/2025 3:30 PM EDT [facility] Citrated Kaolin w/Heparinase Percent Lysis (TEGECMOLIVER) 0.0 0.0 - 3.2 % 04/18/2025 3:30 PM EDT [facility] Whole Blood (Citrate) 04/18/2025 1:52 PM EDT 04/18/2025 2:03 PM EDT Mario Chan MD LAB BLOOD ORDERABLES Final Result [facility] [address] [place] [address], [facility] * (ABNORMAL) CBC, STAT (04/18/2025 1:52 PM EDT) WBC 7.2 3.8 - 10.8 10E3/uL 04/18/2025 2:33 PM EDT [facility] RBC 3.33(L) 3.80 - 5.10 10E6/uL 04/18/2025 2:33 PM EDT [facility] Hemoglobin 10.2(L) 11.7 - 15.5 g/dL 04/18/2025 2:33 PM EDT [facility] Hematocrit 29.6(L) 35.0 - 45.0 % 04/18/2025 2:33 PM EDT [facility] MCV 89.2 80.0 - 100.0 fL 04/18/2025 2:33 PM EDT [facility] MCH 30.6 27.0 - 33.0 pg 04/18/2025 2:33 PM EDT [facility] MCHC 34.3 32.0 - 36.0 g/dL 04/18/2025 2:33 PM EDT [facility] RDW 16.0(H) 11.0 - 15.0 % 04/18/2025 2:33 PM EDT [facility] Platelets 80(L) 140 - 400 10E3/uL 04/18/2025 2:33 PM EDT [facility] MPV 9.4 7.5 - 11.5 fL 04/18/2025 2:33 PM EDT [facility] Whole Blood 04/18/2025 1:52 PM EDT 04/18/2025 2:03 PM EDT Mario Chan MD LAB BLOOD ORDERABLES Final Result Performing Organization Address City/[facility]/ZIP Co de Phone Number [facility] [address] * (ABNORMAL) Protime-INR, STAT (04/18/2025 1:52 PM EDT) [facility] Protime 23.1(H) 12.1 - 15.1 seconds 04/18/2025 2:25 PM EDT [facility] INR 1.9(H) 0.9 - 1.1 04/18/2025 2:25 PM EDT [facility] Comment: RECOMMENDED THERAPEUTIC RANGES USING INR : Stable oral anticoagulant therapy: 2.0 - 3.0 Mechanical prosthetic heart valve: 2.5 - 3.5 Recurrent acute myocardial infarction: 2.5 - 3.5 Plasma 04/18/2025 1:52 PM EDT 04/18/2025 2:03 PM EDT Mario Chan MD LAB BLOOD ORDERABLES Final Result Performing Organization Address [facility]/ZIP Co de Phone Number [facility] [address] [facility]. [address] * POC Sample Type (04/18/2025 1:39 PM EDT) [facility] POC Sample Type Arterial 04/18/2025 2:07 PM EDT [facility] Blood, Arterial 04/18/2025 1 :39 PM EDT 04/18/2025 2:07 PM EDT Ludin Jose MD POINT OF CARE TEST ORDERABLES Fi nal Result [facility] [address] [facility]. [address] * POC Anion Gap (04/18/2025 1:39 PM EDT) [facility] POC Anion Gap, Arterial 14 3 - 16 mmol/L 04/18/2025 2:07 PM EDT [facility] Blood, Arterial 04/18/2025 1 :39 PM EDT 04/18/2025 2:07 PM EDT us Ludin Jose MD POINT OF CARE TEST ORDERABLES Fi nal Result Performing Organization Address [facility] Co de Phone Number [facility] [address] [facility]. [address] * POC Chloride (04/18/2025 1:39 PM EDT) POC Chloride 106 98 - 110 mmol/L 04/18/2025 2:07 PM EDT [facility] Blood, Arterial 04/18/2025 1 :39 PM EDT 04/18/2025 2:07 PM EDT us Ludin Jose MD POINT OF CARE TEST ORDERABLES Fi nal Result Performing Organization Address [facility] de Phone Number [facility] [address] [facility]. [address] * (ABNORMAL) POC Hemoglobin (04/18/2025 1:39 PM EDT) POC Hemoglobin 7.8(L) 12.0 - 16.0 g/dL 04/18/2025 2:07 PM EDT [facility] Blood, Arterial 04/18/2025 1 :39 PM EDT 04/18/2025 2:07 PM EDT us Ludin Jose MD POINT OF CARE TEST ORDERABLES Fi nal Result Performing Organization Address [facility] Co de Phone Number [facility] [address] [facility]. [address] * (ABNORMAL) POC hematocrit (04/18/2025 1:39 PM EDT) POC Hematocrit 23.0(L) 35 - 45 % 04/18/2025 2:07 PM EDT [facility] Blood, Arterial 04/18/2025 1 :39 PM EDT 04/18/2025 2:07 PM EDT us Ludin Jose MD POINT OF CARE TEST ORDERABLES Fi nal Result Performing Organization Address City/[facility] Co de Phone Number [facility] [phone] [facility]. [address] * (ABNORMAL) POC Lactate (04/18/2025 1:39 PM EDT) POC Lactate 2.42(H) 0.50 - 2.20 mmol/L 04/18/2025 2:07 PM EDT [facility] Blood, Arterial 04/18/2025 1 :39 PM EDT 04/18/2025 2:07 PM EDT us Ludin Jose MD POINT OF CARE TEST ORDERABLES Fi nal Result Performing Organization Address [facility] Co de Phone Number [facility] [address] [place] [address]. [address] * (ABNORMAL) POC Glucose (04/18/2025 1:39 PM EDT) POC Glucose, Arterial 124(H) 70 - 100 mg/dL 04/18/2025 2:07 PM EDT [facility] Blood, Arterial 04/18/2025 1 :39 PM EDT 04/18/2025 2:07 PM EDT us Ludin Jose MD POINT OF CARE TEST ORDERABLES Fi nal Result Performing Organization Address City/[facility] Co de Phone Number [facility] [address] [place] [address]. [address] * (ABNORMAL) POC Ionized Calcium (04/18/2025 1:39 PM EDT) POC Ionized Calcium 4.10(L) 4.50 - 5.30 mg/dL 04/18/2025 2:07 PM EDT [facility] Blood, Arterial 04/18/2025 1 :39 PM EDT 04/18/2025 2:07 PM EDT us Ludin Jose MD POINT OF CARE TEST ORDERABLES Fi nal Result [facility] [address] * POC Potassium (04/18/2025 1:39 PM EDT) POC Potassium 4.4 3.5 - 5.3 mmol/L 04/18/2025 2:07 PM EDT [facility] Blood, Arterial 04/18/2025 1 :39 PM EDT 04/18/2025 2:07 PM EDT Ludin Jose MD POINT OF CARE TEST ORDERABLES Fi nal Result Performing Organization Address [facility] Co de Phone Number [facility] [address] [facility]. [address] * POC Sodium (04/18/2025 1:39 PM EDT) POC Sodium 141 136 - 146 mmol/L 04/18/2025 2:07 PM EDT [facility] Blood, Arterial 04/18/2025 1 :39 PM EDT 04/18/2025 2:07 PM EDT Ludin Jose MD POINT OF CARE TEST ORDERABLES Fi nal Result Performing Organization Address [facility] Co de Phone Number [facility] [address] [facility]. [address] * (ABNORMAL) POC TCO2 (04/18/2025 1:39 PM EDT) POC TCO2, Arterial 22(L) 23 - 27 mmol/L 04/18/2025 2:07 PM EDT [facility] Blood, Arterial 04/18/2025 1 :39 PM EDT 04/18/2025 2:07 PM EDT Ludin Jose MD POINT OF CARE TEST ORDERABLES Fi nal Result Performing Organization Address City/[facility]/ZIP Co de Phone Number [facility] [address] * (ABNORMAL) POC O2 SAT (04/18/2025 1:39 PM EDT) POC O2 Saturation, Arterial 100(H) 95 - 98 % 04/18/2025 2:07 PM EDT [facility] Blood, Arterial 04/18/2025 1 :39 PM EDT 04/18/2025 2:07 PM EDT us Ludin Jose MD POINT OF CARE TEST ORDERABLES Fi nal Result Performing Organization Address City/[facility]/ZIP Co de Phone Number [facility] [address] * (ABNORMAL) POC Base Excess (04/18/2025 1:39 PM EDT) POC Base Excess, Arterial -3(L) -2 - 3 mmol/L 04/18/2025 2:07 PM EDT [facility] Blood, Arterial 04/18/2025 1 :39 PM EDT 04/18/2025 2:07 PM EDT us Ludin Jose MD POINT OF CARE TEST ORDERABLES Fi nal Result Performing Organization Address City/[facility] Co de Phone Number [facility] [address] * (ABNORMAL) POC HCO3 (04/18/2025 1:39 PM EDT) POC HCO3, Arterial 21(L) 22 - 26 mmol/L 04/18/2025 2:07 PM EDT [facility] Blood, Arterial 04/18/2025 1 :39 PM EDT 04/18/2025 2:07 PM EDT us Ludin Jose MD POINT OF CARE TEST ORDERABLES Fi nal Result Performing Organization Address City/[facility]/ZIP Co de Phone Number [facility] [address] * (ABNORMAL) POC PO2 (04/18/2025 1:39 PM EDT) POC pO2, Arterial 426(H) 80 - 100 mm Hg 04/18/2025 2:07 PM EDT [facility] Blood, Arterial 04/18/2025 1 :39 PM EDT 04/18/2025 2:07 PM EDT Ludin Jose MD POINT OF CARE TEST ORDERABLES Fi nal Result Performing Organization Address City/State/[facility] Co de Phone Number [facility] [address] [place] [address]. [address] * (ABNORMAL) POC PCO2 (04/18/2025 1:39 PM EDT) Pathologist [facility] POC pCO2, Arterial 34(L) 35 - 45 mm Hg 04/18/2025 2:07 PM EDT [facility] Blood, Arterial 04/18/2025 1 :39 PM EDT 04/18/2025 2:07 PM EDT Ludin Jose MD POINT OF CARE TEST ORDERABLES Fi nal Result Performing Organization Address [facility] Co de Phone Number [facility] [address] [place] [address]. [address] * POC pH (04/18/2025 1:39 PM EDT) Pathologist [facility] POC pH, Arterial 7.40 7.35 - 7.45 04/18/2025 2:07 PM EDT [facility] Blood, Arterial 04/18/2025 1 :39 PM EDT 04/18/2025 2:07 PM EDT Ludin Jose MD POINT OF CARE TEST ORDERABLES Fi nal Result Performing Organization Address City/[facility] Co de Phone Number [facility] [address] [place] [address]. [address] * (ABNORMAL) POC INR (04/18/2025 1:33 PM EDT) Pathologist [facility] Prothrombin Time INR, POC 2.4(H) 0.8 - 1.4 04/19/2025 6:33 AM EDT [facility] Comment: Test results may vary using [...] ORDERABLES Fi nal Result Performing Organization Address City/State/[facility] Co de Phone Number [facility] [address] * Transfuse Fresh Frozen Plasma Transfusion Rate: [...] POC Sample Type (04/18/2025 12:56 PM EDT) POC Sample Type Arterial 04/18/2025 1:37 PM EDT [facility] Blood, Arterial 04/18/2025 1 2:56 PM EDT 04/18/2025 1:37 PM EDT us Ludin Jose MD POINT OF CARE TEST ORDERABLES Fi nal Result [facility] [address] * POC Anion Gap (04/18/2025 12:56 PM EDT) POC Anion Gap, Arterial 9 3 - 16 mmol/L 04/18/2025 1:37 PM EDT [facility] Blood, Arterial 04/18/2025 1 2:56 PM EDT 04/18/2025 1:37 PM EDT Ludin Jose MD POINT OF CARE TEST ORDERABLES Fi nal Result Performing Organization Address City/[facility]/ZIP Co de Phone Number [facility] [address] [facility]. [address] * POC Chloride (04/18/2025 12:56 PM EDT) POC Chloride 110 98 - 110 mmol/L 04/18/2025 1:37 PM EDT [facility] Blood, Arterial 04/18/2025 1 2:56 PM EDT 04/18/2025 1:37 PM EDT us Ludin Jose MD POINT OF CARE TEST ORDERABLES Fi nal Result Performing Organization Address [facility]/ZIP Co de Phone Number [facility] [address] [facility]. [address] * (ABNORMAL) POC Hemoglobin (04/18/2025 12:56 PM EDT) POC Hemoglobin 9.7(L) 12.0 - 16.0 g/dL 04/18/2025 1:37 PM EDT [facility] Blood, Arterial 04/18/2025 1 2:56 PM EDT 04/18/2025 1:37 PM EDT us Ludin Jose MD POINT OF CARE TEST ORDERABLES Fi nal Result [facility] [address] [facility]. [address] * (ABNORMAL) POC hematocrit (04/18/2025 12:56 PM EDT) Pathologist [facility] POC Hematocrit 29.0(L) 35 - 45 % 04/18/2025 1:37 PM EDT [facility] Blood, Arterial 04/18/2025 1 2:56 PM EDT 04/18/2025 1:37 PM EDT us Ludin Jose MD POINT OF CARE TEST ORDERABLES Fi nal Result [facility] [address] [place] [address]. [address] * POC Lactate (04/18/2025 12:56 PM EDT) [facility] POC Lactate 1.89 0.50 - 2.20 mmol/L 04/18/2025 1:37 PM EDT [facility] Blood, Arterial 04/18/2025 1 2:56 PM EDT 04/18/2025 1:37 PM EDT us Ludin Jose MD POINT OF CARE TEST ORDERABLES Fi nal Result Performing Organization Address [facility] Co de Phone Number [facility] [address] [place] [address]. [address] * (ABNORMAL) POC Glucose (04/18/2025 12:56 PM EDT) Pathologist [facility] POC Glucose, Arterial 102(H) 70 - 100 mg/dL 04/18/2025 1:37 PM EDT [facility] Blood, Arterial 04/18/2025 1 2:56 PM EDT 04/18/2025 1:37 PM EDT us Ludin Jose MD POINT OF CARE TEST ORDERABLES Fi nal Result Performing Organization Address City/[facility]/ZIP Co de Phone Number [facility] [address] [place] [address]. [address] * POC Ionized Calcium (04/18/2025 12:56 PM EDT) Pathologist [facility] POC Ionized Calcium 4.90 4.50 - 5.30 mg/dL 04/18/2025 1:37 PM EDT [facility] Blood, Arterial 04/18/2025 1 2:56 PM EDT 04/18/2025 1:37 PM EDT Ludin Jose MD POINT OF CARE TEST ORDERABLES Fi nal Result Performing Organization Address City/[facility]/ZIP Co de Phone Number [facility] [address] [place] [address]. [address] * POC Potassium (04/18/2025 12:56 PM EDT) [facility] POC Potassium 4.4 3.5 - 5.3 mmol/L 04/18/2025 1:37 PM EDT [facility] Blood, Arterial 04/18/2025 1 2:56 PM EDT 04/18/2025 1:37 PM EDT Ludin Jose MD POINT OF CARE TEST ORDERABLES Fi nal Result Performing Organization Address [facility] Co de Phone Number [facility] [address] [place] [address] * POC Sodium (04/18/2025 12:56 PM EDT) [facility] POC Sodium 139 136 - 146 mmol/L 04/18/2025 1:37 PM EDT [facility] Blood, Arterial 04/18/2025 1 2:56 PM EDT 04/18/2025 1:37 PM EDT Ludin Jose MD POINT OF CARE TEST ORDERABLES Fi nal Result Performing Organization Address City/[facility] Co de Phone Number [facility] [address] [place] [address] * (ABNORMAL) POC TCO2 (04/18/2025 12:56 PM EDT) [facility] POC TCO2, Arterial 21(L) 23 - 27 mmol/L 04/18/2025 1:37 PM EDT [facility] Blood, Arterial 04/18/2025 1 2:56 PM EDT 04/18/2025 1:37 PM EDT us Ludin Jose MD POINT OF CARE TEST ORDERABLES Fi nal Result Performing Organization Address City/[facility]/ZIP Co de Phone Number [facility] [address] [facility]. [address] * (ABNORMAL) POC O2 SAT (04/18/2025 12:56 PM EDT) POC O2 Saturation, Arterial 100(H) 95 - 98 % 04/18/2025 1:37 PM EDT [facility] Blood, Arterial 04/18/2025 1 2:56 PM EDT 04/18/2025 1:37 PM EDT us Ludin Jose MD POINT OF CARE TEST ORDERABLES Fi nal Result Performing Organization Address [facility] Co de Phone Number [facility] [address] [facility]. [address] * (ABNORMAL) POC Base Excess (04/18/2025 12:56 PM EDT) POC Base Excess, Arterial -5(L) -2 - 3 mmol/L 04/18/2025 1:37 PM EDT [facility] Blood, Arterial 04/18/2025 1 2:56 PM EDT 04/18/2025 1:37 PM EDT us Ludin Jose MD POINT OF CARE TEST ORDERABLES Fi nal Result Performing Organization Address City/[facility] Co de Phone Number [facility] [address] [facility]. [address] * (ABNORMAL) POC HCO3 (04/18/2025 12:56 PM EDT) POC HCO3, Arterial 20(L) 22 - 26 mmol/L 04/18/2025 1:37 PM EDT [facility] Blood, Arterial 04/18/2025 1 2:56 PM EDT 04/18/2025 1:37 PM EDT us Ludin Jose MD POINT OF CARE TEST ORDERABLES Fi nal Result Performing Organization Address City/[facility]/ZIP Co de Phone Number [facility] [address] [facility]. [address] * (ABNORMAL) POC PO2 (04/18/2025 12:56 PM EDT) POC pO2, Arterial 195(H) 80 - 100 mm Hg 04/18/2025 1:37 PM EDT [facility] Blood, Arterial 04/18/2025 1 2:56 PM EDT 04/18/2025 1:37 PM EDT us Ludin Jose MD POINT OF CARE TEST ORDERABLES Fi nal Result Performing Organization Address [facility] Co de Phone Number [facility] [address] [facility]. [address] * POC PCO2 (04/18/2025 12:56 PM EDT) POC pCO2, Arterial 36 35 - 45 mm Hg 04/18/2025 1:37 PM EDT [facility] Blood, Arterial 04/18/2025 1 2:56 PM EDT 04/18/2025 1:37 PM EDT us Ludin Jose MD POINT OF CARE TEST ORDERABLES Fi nal Result Performing Organization Address City/[facility]/ZIP Co de Phone Number [facility] [address] [facility]. [address] * POC pH (04/18/2025 12:56 PM EDT) POC pH, Arterial 7.36 7.35 - 7.45 04/18/2025 1:37 PM EDT [facility] Blood, Arterial 04/18/2025 1 2:56 PM EDT 04/18/2025 1:37 PM EDT us Ludin Jose MD POINT OF CARE TEST ORDERABLES Fi nal Result Performing Organization Address [facility] Co de Phone Number [facility] [address] [facility]. [address] * (ABNORMAL) POC INR (04/18/2025 12:51 PM EDT) Prothrombin Time INR, POC 6.1(HH) 0.8 - 1.4 04/19/2025 6:33 AM EDT [facility] Comment: Test results may vary using [...] ORDERABLES Fi nal Result Performing Organization Address City/[facility] Co de Phone Number [facility] [address] [facility]. [address] * Transfuse RBC Transfusion Rate: Per [...] Sample Type Arterial 04/18/2025 12:54 PM EDT [facility] Blood, Arterial 04/18/2025 1 2:11 PM EDT 04/18/2025 12:54 PM EDT Result Ahsutosh Jose MD POINT OF CARE TEST ORDERABLES Fi nal Result [facility] [address] * POC Anion Gap (04/18/2025 12:11 PM EDT) POC Anion Gap, Arterial 9 3 - 16 mmol/L 04/18/2025 12:54 PM EDT [facility] Blood, Arterial 04/18/2025 1 2:11 PM EDT 04/18/2025 12:54 PM EDT Ludin Jose MD POINT OF CARE TEST ORDERABLES Fi nal Result Performing Organization Address [facility] Co de Phone Number [facility] [address] * POC Chloride (04/18/2025 12:11 PM EDT) POC Chloride 107 98 - 110 mmol/L 04/18/2025 12:54 PM EDT [facility] Blood, Arterial 04/18/2025 1 2:11 PM EDT 04/18/2025 12:54 PM EDT us Ludin Jose MD POINT OF CARE TEST ORDERABLES Fi nal Result Performing Organization Address [facility] Co de Phone Number [facility] [address] * (ABNORMAL) POC Hemoglobin (04/18/2025 12:11 PM EDT) POC Hemoglobin 10.1(L) 12.0 - 16.0 g/dL 04/18/2025 12:54 PM EDT [facility] Blood, Arterial 04/18/2025 1 2:11 PM EDT 04/18/2025 12:54 PM EDT us Ludin Jose MD POINT OF CARE TEST ORDERABLES Fi nal Result Performing Organization Address City/[facility]/ZIP Co de Phone Number [facility] [address] * (ABNORMAL) POC hematocrit (04/18/2025 12:11 PM EDT) Pathologist [facility] POC Hematocrit 30.0(L) 35 - 45 % 04/18/2025 12:54 PM EDT [facility] Blood, Arterial 04/18/2025 1 2:11 PM EDT 04/18/2025 12:54 PM EDT us Ludin Jose MD POINT OF CARE TEST ORDERABLES Fi nal Result [facility] [address] * POC Lactate (04/18/2025 12:11 PM EDT) [facility] POC Lactate 1.24 0.50 - 2.20 mmol/L 04/18/2025 12:54 PM EDT [facility] Blood, Arterial 04/18/2025 1 2:11 PM EDT 04/18/2025 12:54 PM EDT us Ludin Jose MD POINT OF CARE TEST ORDERABLES Fi nal Result Performing Organization Address [facility] Co de Phone Number [facility] [address] * (ABNORMAL) POC Glucose (04/18/2025 12:11 PM EDT) [facility] POC Glucose, Arterial 126(H) 70 - 100 mg/dL 04/18/2025 12:54 PM EDT [facility] Blood, Arterial 04/18/2025 1 2:11 PM EDT 04/18/2025 12:54 PM EDT us Ludin Jose MD POINT OF CARE TEST ORDERABLES Fi nal Result Performing Organization Address City/[facility]/ZIP Co de Phone Number [facility] [address] * POC Ionized Calcium (04/18/2025 12:11 PM EDT) Pathologist [facility] POC Ionized Calcium 4.70 4.50 - 5.30 mg/dL 04/18/2025 12:54 PM EDT [facility] Blood, Arterial 04/18/2025 1 2:11 PM EDT 04/18/2025 12:54 PM EDT Ludin Jose MD POINT OF CARE TEST ORDERABLES Fi nal Result Performing Organization Address City/[facility]/ZIP Co de Phone Number [facility] [address] [place] [address]. [address] * POC Potassium (04/18/2025 12:11 PM EDT) [facility] POC Potassium 4.2 3.5 - 5.3 mmol/L 04/18/2025 12:54 PM EDT [facility] Blood, Arterial 04/18/2025 1 2:11 PM EDT 04/18/2025 12:54 PM EDT us Ludin Jose MD POINT OF CARE TEST ORDERABLES Fi nal Result Performing Organization Address [facility] Co de Phone Number [facility] [address] [place] [address]. [address] * POC Sodium (04/18/2025 12:11 PM EDT) [facility] POC Sodium 137 136 - 146 mmol/L 04/18/2025 12:54 PM EDT [facility] Blood, Arterial 04/18/2025 1 2:11 PM EDT 04/18/2025 12:54 PM EDT us Ludin Jose MD POINT OF CARE TEST ORDERABLES Fi nal Result Performing Organization Address City/[facility] Co de Phone Number [facility] [address] [place] [address]. [address] * (ABNORMAL) POC TCO2 (04/18/2025 12:11 PM EDT) [facility] POC TCO2, Arterial 22(L) 23 - 27 mmol/L 04/18/2025 12:54 PM EDT [facility] Blood, Arterial 04/18/2025 1 2:11 PM EDT 04/18/2025 12:54 PM EDT us Ludin Jose MD POINT OF CARE TEST ORDERABLES Fi nal Result [facility] [address] * (ABNORMAL) POC O2 SAT (04/18/2025 12:11 PM EDT) POC O2 Saturation, Arterial 99(H) 95 - 98 % 04/18/2025 12:54 PM EDT [facility] Blood, Arterial 04/18/2025 1 2:11 PM EDT 04/18/2025 12:54 PM EDT us Ludin Jose MD POINT OF CARE TEST ORDERABLES Fi nal Result Performing Organization Address [facility]/ZIP Co de Phone Number [facility] [address] [facility]. [address] * (ABNORMAL) POC Base Excess (04/18/2025 12:11 PM EDT) POC Base Excess, Arterial -5(L) -2 - 3 mmol/L 04/18/2025 12:54 PM EDT [facility] Blood, Arterial 04/18/2025 1 2:11 PM EDT 04/18/2025 12:54 PM EDT us Ludin Jose MD POINT OF CARE TEST ORDERABLES Fi nal Result [facility] [address] [facility]. [address] * (ABNORMAL) POC HCO3 (04/18/2025 12:11 PM EDT) POC HCO3, Arterial 21(L) 22 - 26 mmol/L 04/18/2025 12:54 PM EDT [facility] Blood, Arterial 04/18/2025 1 2:11 PM EDT 04/18/2025 12:54 PM EDT us Ludin Jose MD POINT OF CARE TEST ORDERABLES Fi nal Result [facility] [address] [facility]. [address] * (ABNORMAL) POC PO2 (04/18/2025 12:11 PM EDT) POC pO2, Arterial 160(H) 80 - 100 mm Hg 04/18/2025 12:54 PM EDT [facility] Blood, Arterial 04/18/2025 1 2:11 PM EDT 04/18/2025 12:54 PM EDT us Ludin Jose MD POINT OF CARE TEST ORDERABLES Fi nal Result Performing Organization Address [facility] Co de Phone Number [facility] [address] [facility]. [address] * POC PCO2 (04/18/2025 12:11 PM EDT) POC pCO2, Arterial 38 35 - 45 mm Hg 04/18/2025 12:54 PM EDT [facility] Blood, Arterial 04/18/2025 1 2:11 PM EDT 04/18/2025 12:54 PM EDT us Ludin Jose MD POINT OF CARE TEST ORDERABLES Fi nal Result Performing Organization Address City/[facility]/ZIP Co de Phone Number [facility] [address] [facility]. [address] * POC pH (04/18/2025 12:11 PM EDT) POC pH, Arterial 7.35 7.35 - 7.45 04/18/2025 12:54 PM EDT [facility] Blood, Arterial 04/18/2025 1 2:11 PM EDT 04/18/2025 12:54 PM EDT Ludin Jose MD POINT OF CARE TEST ORDERABLES Fi nal Result Performing Organization Address City/[facility] Co de Phone Number [facility] [address] [facility]. [address] * POC INR (04/18/2025 12:05 PM EDT) Prothrombin Time INR, POC 1.3 0.8 - 1.4 04/19/2025 6:33 AM EDT [facility] Comment: Test results may vary using different testing platforms. Serial result monitoring should be performed using the same methodology. RECOMMENDED THERAPEUTIC RANGES USING INR : Stable oral anticoagulant therapy: 2.0 - 3.0 Mechanical prosthetic heart valve: 2.5 - 3.5 Recurrent acute myocardial infarction: 2.5 - 3.5 Blood 04/18/2025 12:0 5 PM EDT 04/19/2025 6:32 AM EDT Ludin Jose MD POINT OF CARE TEST ORDERABLES Fi nal Result Performing Organization Address [facility] Co de Phone Number [facility] [address] [facility]. [address] * POC Sample Type (04/18/2025 11:16 AM EDT) Pathologist [facility] POC Sample Type Arterial 04/18/2025 12:09 PM EDT [facility] Blood, Arterial 04/18/2025 1 1:16 AM EDT 04/18/2025 12:09 PM EDT Ludin Jose MD POINT OF CARE TEST ORDERABLES Fi nal Result Performing Organization Address City/[facility] Co de Phone Number [facility] [address] [facility]. [address] * POC Anion Gap (04/18/2025 11:16 AM EDT) POC Anion Gap, Arterial 6 3 - 16 mmol/L 04/18/2025 12:09 PM EDT [facility] Blood, Arterial 04/18/2025 1 1:16 AM EDT 04/18/2025 12:09 PM EDT us Ludin Jose MD POINT OF CARE TEST ORDERABLES Fi nal Result Performing Organization Address City/[facility]/ZIP Co de Phone Number [facility] [address] [facility]. [address] * POC Chloride (04/18/2025 11:16 AM EDT) POC Chloride 108 98 - 110 mmol/L 04/18/2025 12:09 PM EDT [facility] Blood, Arterial 04/18/2025 1 1:16 AM EDT 04/18/2025 12:09 PM EDT us Ludin Jose MD POINT OF CARE TEST ORDERABLES Fi nal Result Performing Organization Address [facility] Co de Phone Number [facility] [address] [facility]. [address] * (ABNORMAL) POC Hemoglobin (04/18/2025 11:16 AM EDT) POC Hemoglobin 10.7(L) 12.0 - 16.0 g/dL 04/18/2025 12:09 PM EDT [facility] Blood, Arterial 04/18/2025 1 1:16 AM EDT 04/18/2025 12:09 PM EDT us Ludin Jose MD POINT OF CARE TEST ORDERABLES Fi nal Result Performing Organization Address [facility] Center/[facility] Co de Phone Number [facility] [address] [facility]. [address] * (ABNORMAL) POC hematocrit (04/18/2025 11:16 AM EDT) POC Hematocrit 31.0(L) 35 - 45 % 04/18/2025 12:09 PM EDT [facility] Blood, Arterial 04/18/2025 1 1:16 AM EDT 04/18/2025 12:09 PM EDT us Ludin Jose MD POINT OF CARE TEST ORDERABLES Fi nal Result Performing Organization Address [facility] Co de Phone Number [facility] [address] [place] [address]. [address] * POC Lactate (04/18/2025 11:16 AM EDT) POC Lactate 1.10 0.50 - 2.20 mmol/L 04/18/2025 12:09 PM EDT [facility] Blood, Arterial 04/18/2025 1 1:16 AM EDT 04/18/2025 12:09 PM EDT us Ludin Jose MD POINT OF CARE TEST ORDERABLES Fi nal Result Performing Organization Address [facility] de Phone Number [facility] [address] [place] [address]. [address] * (ABNORMAL) POC Glucose (04/18/2025 11:16 AM EDT) POC Glucose, Arterial 116(H) 70 - 100 mg/dL 04/18/2025 12:09 PM EDT [facility] Blood, Arterial 04/18/2025 1 1:16 AM EDT 04/18/2025 12:09 PM EDT us Ludin Jose MD POINT OF CARE TEST ORDERABLES Fi nal Result Performing Organization Address [facility] Co de Phone Number [facility] [address] [place] [address]. [address] * POC Ionized Calcium (04/18/2025 11:16 AM EDT) POC Ionized Calcium 5.20 4.50 - 5.30 mg/dL 04/18/2025 12:09 PM EDT [facility] Blood, Arterial 04/18/2025 1 1:16 AM EDT 04/18/2025 12:09 PM EDT us Ludin Jose MD POINT OF CARE TEST ORDERABLES Fi nal Result [facility] [address] * POC Potassium (04/18/2025 11:16 AM EDT) POC Potassium 4.1 3.5 - 5.3 mmol/L 04/18/2025 12:09 PM EDT [facility] Blood, Arterial 04/18/2025 1 1:16 AM EDT 04/18/2025 12:09 PM EDT us Ludin Jose MD POINT OF CARE TEST ORDERABLES Fi nal Result Performing Organization Address City/[facility]/ZIP Co de Phone Number [facility] [address] * POC Sodium (04/18/2025 11:16 AM EDT) POC Sodium 137 136 - 146 mmol/L 04/18/2025 12:09 PM EDT [facility] Blood, Arterial 04/18/2025 1 1:16 AM EDT 04/18/2025 12:09 PM EDT us Ludin Jose MD POINT OF CARE TEST ORDERABLES Fi nal Result Performing Organization Address City/[facility]/ZIP Co de Phone Number [facility] [address] [facility]. [address] * POC TCO2 (04/18/2025 11:16 AM EDT) POC TCO2, Arterial 24 23 - 27 mmol/L 04/18/2025 12:09 PM EDT [facility] Blood, Arterial 04/18/2025 1 1:16 AM EDT 04/18/2025 12:09 PM EDT us Ludin Jose MD POINT OF CARE TEST ORDERABLES Fi nal Result [facility] [address] * (ABNORMAL) POC O2 SAT (04/18/2025 11:16 AM EDT) POC O2 Saturation, Arterial 99(H) 95 - 98 % 04/18/2025 12:09 PM EDT [facility] Blood, Arterial 04/18/2025 1 1:16 AM EDT 04/18/2025 12:09 PM EDT Ludin Jose MD POINT OF CARE TEST ORDERABLES Fi nal Result [facility] [address] [facility]. [address] * POC Base Excess (04/18/2025 11:16 AM EDT) POC Base Excess, Arterial -2 -2 - 3 mmol/L 04/18/2025 12:09 PM EDT [facility] Blood, Arterial 04/18/2025 1 1:16 AM EDT 04/18/2025 12:09 PM EDT us Ludin Jose MD POINT OF CARE TEST ORDERABLES Fi nal Result Performing Organization Address City/[facility] Co de Phone Number [facility] [address] [facility]. [address] * POC HCO3 (04/18/2025 11:16 AM EDT) POC HCO3, Arterial 23 22 - 26 mmol/L 04/18/2025 12:09 PM EDT [facility] Blood, Arterial 04/18/2025 1 1:16 AM EDT 04/18/2025 12:09 PM EDT us Ludin Jose MD POINT OF CARE TEST ORDERABLES Fi nal Result Performing Organization Address City/[facility] Co de Phone Number [facility] [address] * (ABNORMAL) POC PO2 (04/18/2025 11:16 AM EDT) POC pO2, Arterial 136(H) 80 - 100 mm Hg 04/18/2025 12:09 PM EDT [facility] Blood, Arterial 04/18/2025 1 1:16 AM EDT 04/18/2025 12:09 PM EDT us Ludin Jose MD POINT OF CARE TEST ORDERABLES Fi nal Result Performing Organization Address City/[facility]/ZIP Co de Phone Number [facility] [address] [place] [address]. [address] * POC PCO2 (04/18/2025 11:16 AM EDT) POC pCO2, Arterial 38 35 - 45 mm Hg 04/18/2025 12:09 PM EDT [facility] Blood, Arterial 04/18/2025 1 1:16 AM EDT 04/18/2025 12:09 PM EDT us Ludin Jose MD POINT OF CARE TEST ORDERABLES Fi nal Result Performing Organization Address [facility] Co de Phone Number [facility] [address] [place] [address]. [address] * POC pH (04/18/2025 11:16 AM EDT) POC pH, Arterial 7.38 7.35 - 7.45 04/18/2025 12:09 PM EDT [facility] Blood, Arterial 04/18/2025 1 1:16 AM EDT 04/18/2025 12:09 PM EDT us Ludin Jose MD POINT OF CARE TEST ORDERABLES Fi nal Result Performing Organization Address City/[facility] Co de Phone Number [facility] [address] [place] [address]. [address] * POC Sample Type (04/18/2025 11:13 AM EDT) POC Sample Type Arterial 04/18/2025 11:46 AM EDT [facility] Blood, Arterial 04/18/2025 1 1:13 AM EDT 04/18/2025 11:46 AM EDT us Ludin Jose MD POINT OF CARE TEST ORDERABLES Fi nal Result [facility] [address] [facility]. [address] * POC Anion Gap (04/18/2025 11:13 AM EDT) POC Anion Gap, Arterial cnc 3 - 16 mmol/L 04/18/2025 11:46 AM EDT [facility] Blood, Arterial 04/18/2025 1 1:13 AM EDT 04/18/2025 11:46 AM EDT us Ludin Jose MD POINT OF CARE TEST ORDERABLES Fi nal Result Performing Organization Address [facility] Co de Phone Number [facility] [address] [facility]. [address] * POC Chloride (04/18/2025 11:13 AM EDT) Pathologist [facility] POC Chloride cnc 98 - 110 mmol/L 04/18/2025 11:46 AM EDT [facility] Blood, Arterial 04/18/2025 1 1:13 AM EDT 04/18/2025 11:46 AM EDT us Ludin Jose MD POINT OF CARE TEST ORDERABLES Fi nal Result [facility] [address] [facility]. [address] * POC Hemoglobin (04/18/2025 11:13 AM EDT) POC Hemoglobin cnc 12.0 - 16.0 g/dL 04/18/2025 11:46 AM EDT [facility] Blood, Arterial 04/18/2025 1 1:13 AM EDT 04/18/2025 11:46 AM EDT us Ludin Jose MD POINT OF CARE TEST ORDERABLES Fi nal Result Performing Organization Address [facility] Co de Phone Number [facility] [address] [place] [address]. [address] * POC hematocrit (04/18/2025 11:13 AM EDT) POC Hematocrit Failed iQC 35 - 45 % 04/18/2025 11:46 AM EDT [facility] Blood, Arterial 04/18/2025 1 1:13 AM EDT 04/18/2025 11:46 AM EDT us Ludin Jose MD POINT OF CARE TEST ORDERABLES Fi nal Result Performing Organization Address [facility] de Phone Number [facility] [address] [facility]. [address] * POC Lactate (04/18/2025 11:13 AM EDT) POC Lactate 1.13 0.50 - 2.20 mmol/L 04/18/2025 11:46 AM EDT [facility] Blood, Arterial 04/18/2025 1 1:13 AM EDT 04/18/2025 11:46 AM EDT us Ludin Jose MD POINT OF CARE TEST ORDERABLES Fi nal Result Performing Organization Address [facility] Co de Phone Number [facility] [address] [place] [address]. [address] * (ABNORMAL) POC Glucose (04/18/2025 11:13 AM EDT) POC Glucose, Arterial 123(H) 70 - 100 mg/dL 04/18/2025 11:46 AM EDT [facility] Blood, Arterial 04/18/2025 1 1:13 AM EDT 04/18/2025 11:46 AM EDT us Ludin Jose MD POINT OF CARE TEST ORDERABLES Fi nal Result [facility] [address] * POC Ionized Calcium (04/18/2025 11:13 AM EDT) POC Ionized Calcium 5.20 4.50 - 5.30 mg/dL 04/18/2025 11:46 AM EDT [facility] Blood, Arterial 04/18/2025 1 1:13 AM EDT 04/18/2025 11:46 AM EDT us Ludin Jose MD POINT OF CARE TEST ORDERABLES Fi nal Result Performing Organization Address [facility] Co de Phone Number [facility] [address] * POC Potassium (04/18/2025 11:13 AM EDT) POC Potassium 4.1 3.5 - 5.3 mmol/L 04/18/2025 11:46 AM EDT [facility] Blood, Arterial 04/18/2025 1 1:13 AM EDT 04/18/2025 11:46 AM EDT us Ludin Jose MD POINT OF CARE TEST ORDERABLES Fi nal Result Performing Organization Address [facility] Co de Phone Number [facility] [address] [facility]. [address] * POC Sodium (04/18/2025 11:13 AM EDT) POC Sodium 138 136 - 146 mmol/L 04/18/2025 11:46 AM EDT [facility] Blood, Arterial 04/18/2025 1 1:13 AM EDT 04/18/2025 11:46 AM EDT us Ludin Jose MD POINT OF CARE TEST ORDERABLES Fi nal Result Performing Organization Address City/[facility]/ZIP Co de Phone Number [facility] [address] [facility]. [address] * POC TCO2 (04/18/2025 11:13 AM EDT) POC TCO2, Arterial 24 23 - 27 mmol/L 04/18/2025 11:46 AM EDT [facility] Blood, Arterial 04/18/2025 1 1:13 AM EDT 04/18/2025 11:46 AM EDT us Ludin Jose MD POINT OF CARE TEST ORDERABLES Fi nal Result [facility] [address] [facility]. [address] * (ABNORMAL) POC O2 SAT (04/18/2025 11:13 AM EDT) POC O2 Saturation, Arterial 99(H) 95 - 98 % 04/18/2025 11:46 AM EDT [facility] Blood, Arterial 04/18/2025 1 1:13 AM EDT 04/18/2025 11:46 AM EDT us Ludin Jose MD POINT OF CARE TEST ORDERABLES Fi nal Result Performing Organization Address City/[facility]/ZIP Co de Phone Number [facility] [address] [facility]. [address] * POC Base Excess (04/18/2025 11:13 AM EDT) POC Base Excess, Arterial -2 -2 - 3 mmol/L 04/18/2025 11:46 AM EDT [facility] Blood, Arterial 04/18/2025 1 1:13 AM EDT 04/18/2025 11:46 AM EDT us Ludin Jose MD POINT OF CARE TEST ORDERABLES Fi nal Result [facility] [address] [facility]. [address] * POC HCO3 (04/18/2025 11:13 AM EDT) POC HCO3, Arterial 23 22 - 26 mmol/L 04/18/2025 11:46 AM EDT [facility] Blood, Arterial 04/18/2025 1 1:13 AM EDT 04/18/2025 11:46 AM EDT Ludin Jose MD POINT OF CARE TEST ORDERABLES Fi nal Result [facility] [address] [facility]. [address] * (ABNORMAL) POC PO2 (04/18/2025 11:13 AM EDT) POC pO2, Arterial 133(H) 80 - 100 mm Hg 04/18/2025 11:46 AM EDT [facility] Blood, Arterial 04/18/2025 1 1:13 AM EDT 04/18/2025 11:46 AM EDT Ludin Jose MD POINT OF CARE TEST ORDERABLES Fi nal Result Performing Organization Address City/[facility] Co de Phone Number [facility] [address] [facility]. [address] * POC PCO2 (04/18/2025 11:13 AM EDT) POC pCO2, Arterial 38 35 - 45 mm Hg 04/18/2025 11:46 AM EDT [facility] Blood, Arterial 04/18/2025 1 1:13 AM EDT 04/18/2025 11:46 AM EDT Ludin Jose MD POINT OF CARE TEST ORDERABLES Fi nal Result Performing Organization Address City/[facility] Co de Phone Number [facility] [address] [facility]. [address] * POC pH (04/18/2025 11:13 AM EDT) POC pH, Arterial 7.38 7.35 - 7.45 04/18/2025 11:46 AM EDT [facility] Blood, Arterial 04/18/2025 1 1:13 AM EDT 04/18/2025 11:46 AM EDT us Ludin Jose MD POINT OF CARE TEST ORDERABLES Fi nal Result Performing Organization Address City/[facility] Co de Phone Number [facility] [address] [facility]. [address] * POC INR (04/18/2025 11:07 AM EDT) Prothrombin Time INR, POC 1.3 0.8 - 1.4 04/19/2025 6:33 AM EDT [facility] Comment: Test results may vary [...] ORDERABLES Fi nal Result Performing Organization Address [facility] Co de Phone Number [facility] [address] [facility]. [address] * POC Sample Type (04/18/2025 10:17 AM EDT) POC Sample Type Arterial 04/18/2025 11:10 AM EDT [facility] Blood, Arterial 04/18/2025 1 0:17 AM EDT 04/18/2025 11:10 AM EDT us Ludin Jose MD POINT OF CARE TEST ORDERABLES Fi nal Result Performing Organization Address [facility] Co de Phone Number [facility] [address] * POC Anion Gap (04/18/2025 10:17 AM EDT) POC Anion Gap, Arterial 10 3 - 16 mmol/L 04/18/2025 11:10 AM EDT [facility] Blood, Arterial 04/18/2025 1 0:17 AM EDT 04/18/2025 11:10 AM EDT us Ludin Jose MD POINT OF CARE TEST ORDERABLES Fi nal Result Performing Organization Address City/[facility]/ZIP Co de Phone Number [facility] [address] [place] [address]. [address] * POC Chloride (04/18/2025 10:17 AM EDT) Pathologist [facility] POC Chloride 106 98 - 110 mmol/L 04/18/2025 11:10 AM EDT [facility] Blood, Arterial 04/18/2025 1 0:17 AM EDT 04/18/2025 11:10 AM EDT us Ludin Jose MD POINT OF CARE TEST ORDERABLES Fi nal Result Performing Organization Address [facility] Co de Phone Number [facility] [address] [facility]. [address] * (ABNORMAL) POC Hemoglobin (04/18/2025 10:17 AM EDT) Pathologist [facility] POC Hemoglobin 9.8(L) 12.0 - 16.0 g/dL 04/18/2025 11:10 AM EDT [facility] Blood, Arterial 04/18/2025 1 0:17 AM EDT 04/18/2025 11:10 AM EDT us Ludin Jose MD POINT OF CARE TEST ORDERABLES Fi nal Result Performing Organization Address City/[facility] Co de Phone Number [facility] [address] [place] [address]. [address] * (ABNORMAL) POC hematocrit (04/18/2025 10:17 AM EDT) Pathologist [facility] POC Hematocrit 29.0(L) 35 - 45 % 04/18/2025 11:10 AM EDT [facility] Blood, Arterial 04/18/2025 1 0:17 AM EDT 04/18/2025 11:10 AM EDT us Ludin Jose MD POINT OF CARE TEST ORDERABLES Fi nal Result Performing Organization Address [facility] Co de Phone Number [facility] [address] [facility]. [address] * POC Lactate (04/18/2025 10:17 AM EDT) POC Lactate 1.06 0.50 - 2.20 mmol/L 04/18/2025 11:10 AM EDT [facility] Blood, Arterial 04/18/2025 1 0:17 AM EDT 04/18/2025 11:10 AM EDT us Ludin Jose MD POINT OF CARE TEST ORDERABLES Fi nal Result Performing Organization Address [facility] de Phone Number [facility] [address] [facility]. [address] * (ABNORMAL) POC Glucose (04/18/2025 10:17 AM EDT) POC Glucose, Arterial 109(H) 70 - 100 mg/dL 04/18/2025 11:10 AM EDT [facility] Blood, Arterial 04/18/2025 1 0:17 AM EDT 04/18/2025 11:10 AM EDT us Ludin Jose MD POINT OF CARE TEST ORDERABLES Fi nal Result Performing Organization Address [facility] de Phone Number [facility] [address] [facility]. [address] * (ABNORMAL) POC Ionized Calcium (04/18/2025 10:17 AM EDT) POC Ionized Calcium 5.40(H) 4.50 - 5.30 mg/dL 04/18/2025 11:10 AM EDT [facility] Blood, Arterial 04/18/2025 1 0:17 AM EDT 04/18/2025 11:10 AM EDT Result Ashutosh Jose MD POINT OF CARE TEST ORDERABLES Fi nal Result Performing Organization Address [facility] Co de Phone Number [facility] [address] [place] [address]. [address] * POC Potassium (04/18/2025 10:17 AM EDT) POC Potassium 3.8 3.5 - 5.3 mmol/L 04/18/2025 11:10 AM EDT [facility] Blood, Arterial 04/18/2025 1 0:17 AM EDT 04/18/2025 11:10 AM EDT us Ludin Jose MD POINT OF CARE TEST ORDERABLES Fi nal Result Performing Organization Address [facility] de Phone Number [facility] [address] [place] [address]. [address] * POC Sodium (04/18/2025 10:17 AM EDT) POC Sodium 139 136 - 146 mmol/L 04/18/2025 11:10 AM EDT [facility] Blood, Arterial 04/18/2025 1 0:17 AM EDT 04/18/2025 11:10 AM EDT Result Ashutosh Jose MD POINT OF CARE TEST ORDERABLES Fi nal Result Performing Organization Address [facility] Co de Phone Number [facility] [address] [place] [address]. [address] * POC TCO2 (04/18/2025 10:17 AM EDT) POC TCO2, Arterial 24 23 - 27 mmol/L 04/18/2025 11:10 AM EDT [facility] Blood, Arterial 04/18/2025 1 0:17 AM EDT 04/18/2025 11:10 AM EDT us Ludin Jose MD POINT OF CARE TEST ORDERABLES Fi nal Result [facility] [address] [facility]. [address] * (ABNORMAL) POC O2 SAT (04/18/2025 10:17 AM EDT) POC O2 Saturation, Arterial 99(H) 95 - 98 % 04/18/2025 11:10 AM EDT [facility] Blood, Arterial 04/18/2025 1 0:17 AM EDT 04/18/2025 11:10 AM EDT us Ludin Jose MD POINT OF CARE TEST ORDERABLES Fi nal Result Performing Organization Address [facility] Co de Phone Number [facility] [address] [facility]. [address] * POC Base Excess (04/18/2025 10:17 AM EDT) POC Base Excess, Arterial -2 -2 - 3 mmol/L 04/18/2025 11:10 AM EDT [facility] Blood, Arterial 04/18/2025 1 0:17 AM EDT 04/18/2025 11:10 AM EDT us Ludin Jose MD POINT OF CARE TEST ORDERABLES Fi nal Result Performing Organization Address City/[facility]/ZIP Co de Phone Number [facility] [address] [facility]. [address] * POC HCO3 (04/18/2025 10:17 AM EDT) POC HCO3, Arterial 23 22 - 26 mmol/L 04/18/2025 11:10 AM EDT [facility] Blood, Arterial 04/18/2025 1 0:17 AM EDT 04/18/2025 11:10 AM EDT us Ludin Jose MD POINT OF CARE TEST ORDERABLES Fi nal Result [facility] [address] * (ABNORMAL) POC PO2 (04/18/2025 10:17 AM EDT) POC pO2, Arterial 134(H) 80 - 100 mm Hg 04/18/2025 11:10 AM EDT [facility] Blood, Arterial 04/18/2025 1 0:17 AM EDT 04/18/2025 11:10 AM EDT us Ludin Jose MD POINT OF CARE TEST ORDERABLES Fi nal Result Performing Organization Address City/[facility]/ZIP Co de Phone Number [facility] [address] [facility]. [address] * POC PCO2 (04/18/2025 10:17 AM EDT) POC pCO2, Arterial 38 35 - 45 mm Hg 04/18/2025 11:10 AM EDT [facility] Blood, Arterial 04/18/2025 1 0:17 AM EDT 04/18/2025 11:10 AM EDT us Ludin Jose MD POINT OF CARE TEST ORDERABLES Fi nal Result Performing Organization Address [facility]/ZIP Co de Phone Number [facility] [address] * POC pH (04/18/2025 10:17 AM EDT) POC pH, Arterial 7.39 7.35 - 7.45 04/18/2025 11:10 AM EDT [facility] Blood, Arterial 04/18/2025 1 0:17 AM EDT 04/18/2025 11:10 AM EDT us Ludin Jose MD POINT OF CARE TEST ORDERABLES Fi nal Result [facility] [address] * POC INR (04/18/2025 10:12 AM EDT) Prothrombin Time INR, POC 1.3 0.8 - 1.4 04/19/2025 6:33 AM EDT [facility] Comment: Test results may vary [...] ORDERABLES Fi nal Result Performing Organization Address [facility] Co de Phone Number [facility] [address] [facility]. [address] * (ABNORMAL) POC INR (04/18/2025 9:19 AM EDT) Prothrombin Time INR, POC 1.7(H) 0.8 - 1.4 04/19/2025 6:33 AM EDT [facility] Comment: Test results may vary [...] ORDERABLES Fi nal Result Performing Organization Address City/[facility] Co de Phone Number [facility] [address] [facility] * POC Sample Type (04/18/2025 9:17 AM EDT) POC Sample Type Arterial 04/18/2025 9:24 AM EDT [facility] Blood, Arterial 04/18/2025 9 :17 AM EDT 04/18/2025 9:24 AM EDT us Ludin Jose MD POINT OF CARE TEST ORDERABLES Fi nal Result Performing Organization Address City/[facility] Co de Phone Number [facility] [address] [facility]. [address] * POC Anion Gap (04/18/2025 9:17 AM EDT) POC Anion Gap, Arterial 9 3 - 16 mmol/L 04/18/2025 9:24 AM EDT [facility] Blood, Arterial 04/18/2025 9 :17 AM EDT 04/18/2025 9:24 AM EDT us Ludin Jose MD POINT OF CARE TEST ORDERABLES Fi nal Result Performing Organization Address [facility] Co de Phone Number [facility] [address] [facility]. [address] * POC Chloride (04/18/2025 9:17 AM EDT) Pathologist [facility] POC Chloride 104 98 - 110 mmol/L 04/18/2025 9:24 AM EDT [facility] Blood, Arterial 04/18/2025 9 :17 AM EDT 04/18/2025 9:24 AM EDT us Ludin Jose MD POINT OF CARE TEST ORDERABLES Fi nal Result Performing Organization Address City/[facility] Co de Phone Number [facility] [address] [facility]. [address] * (ABNORMAL) POC Hemoglobin (04/18/2025 9:17 AM EDT) POC Hemoglobin 9.5(L) 12.0 - 16.0 g/dL 04/18/2025 9:24 AM EDT [facility] Blood, Arterial 04/18/2025 9 :17 AM EDT 04/18/2025 9:24 AM EDT us Ludin Jose MD POINT OF CARE TEST ORDERABLES Fi nal Result Performing Organization Address [facility] Co de Phone Number [facility] [address] [facility]. [address] * (ABNORMAL) POC hematocrit (04/18/2025 9:17 AM EDT) POC Hematocrit 28.0(L) 35 - 45 % 04/18/2025 9:24 AM EDT [facility] Blood, Arterial 04/18/2025 9 :17 AM EDT 04/18/2025 9:24 AM EDT us Ludin Jose MD POINT OF CARE TEST ORDERABLES Fi nal Result Performing Organization Address [facility] Co de Phone Number [facility] [address] [place] [address] * (ABNORMAL) POC Lactate (04/18/2025 9:17 AM EDT) POC Lactate <0.30(L) 0.50 - 2.20 mmol/L 04/18/2025 9:24 AM EDT [facility] Blood, Arterial 04/18/2025 9 :17 AM EDT 04/18/2025 9:24 AM EDT us Ludin Jose MD POINT OF CARE TEST ORDERABLES Fi nal Result Performing Organization Address [facility] Co de Phone Number [facility] [address] [place] [address]. [address] * (ABNORMAL) POC Glucose (04/18/2025 9:17 AM EDT) POC Glucose, Arterial 109(H) 70 - 100 mg/dL 04/18/2025 9:24 AM EDT [facility] Blood, Arterial 04/18/2025 9 :17 AM EDT 04/18/2025 9:24 AM EDT us Ludin Jose MD POINT OF CARE TEST ORDERABLES Fi nal Result [facility] [address] [facility]. [address] * POC Ionized Calcium (04/18/2025 9:17 AM EDT) POC Ionized Calcium 4.90 4.50 - 5.30 mg/dL 04/18/2025 9:24 AM EDT [facility] Blood, Arterial 04/18/2025 9 :17 AM EDT 04/18/2025 9:24 AM EDT us Ludin Jose MD POINT OF CARE TEST ORDERABLES Fi nal Result Performing Organization Address [facility] Co de Phone Number [facility] [address] [place] [facility]. [address] * POC Potassium (04/18/2025 9:17 AM EDT) Pathologist [facility] POC Potassium 3.6 3.5 - 5.3 mmol/L 04/18/2025 9:24 AM EDT [facility] Blood, Arterial 04/18/2025 9 :17 AM EDT 04/18/2025 9:24 AM EDT us Ludin Jose MD POINT OF CARE TEST ORDERABLES Fi nal Result Performing Organization Address [facility] Co de Phone Number [facility] [address] * POC Sodium (04/18/2025 9:17 AM EDT) POC Sodium 140 136 - 146 mmol/L 04/18/2025 9:24 AM EDT [facility] Blood, Arterial 04/18/2025 9 :17 AM EDT 04/18/2025 9:24 AM EDT us Ludin Jose MD POINT OF CARE TEST ORDERABLES Fi nal Result Performing Organization Address City/[facility]/ZIP Co de Phone Number [facility] [address] [facility]. [address] * (ABNORMAL) POC TCO2 (04/18/2025 9:17 AM EDT) POC TCO2, Arterial 28(H) 23 - 27 mmol/L 04/18/2025 9:24 AM EDT [facility] Blood, Arterial 04/18/2025 9 :17 AM EDT 04/18/2025 9:24 AM EDT us Ludin Jose MD POINT OF CARE TEST ORDERABLES Fi nal Result [facility] [address] [facility]. [address] * (ABNORMAL) POC O2 SAT (04/18/2025 9:17 AM EDT) POC O2 Saturation, Arterial 100(H) 95 - 98 % 04/18/2025 9:24 AM EDT [facility] Blood, Arterial 04/18/2025 9 :17 AM EDT 04/18/2025 9:24 AM EDT us Ludin Jose MD POINT OF CARE TEST ORDERABLES Fi nal Result Performing Organization Address [facility]/ZIP Co de Phone Number [facility] [address] [facility]. [address] * POC Base Excess (04/18/2025 9:17 AM EDT) POC Base Excess, Arterial 1 -2 - 3 mmol/L 04/18/2025 9:24 AM EDT [facility] Blood, Arterial 04/18/2025 9 :17 AM EDT 04/18/2025 9:24 AM EDT us Ludin Jose MD POINT OF CARE TEST ORDERABLES Fi nal Result [facility] [address] [facility]. [address] * (ABNORMAL) POC HCO3 (04/18/2025 9:17 AM EDT) POC HCO3, Arterial 27(H) 22 - 26 mmol/L 04/18/2025 9:24 AM EDT [facility] Blood, Arterial 04/18/2025 9 :17 AM EDT 04/18/2025 9:24 AM EDT Ludin Jose MD POINT OF CARE TEST ORDERABLES Fi nal Result Performing Organization Address City/[facility] Co de Phone Number [facility] [address] [place] [address]. [address] * (ABNORMAL) POC PO2 (04/18/2025 9:17 AM EDT) POC pO2, Arterial 354(H) 80 - 100 mm Hg 04/18/2025 9:24 AM EDT [facility] Blood, Arterial 04/18/2025 9 :17 AM EDT 04/18/2025 9:24 AM EDT Ludin Jose MD POINT OF CARE TEST ORDERABLES Fi nal Result Performing Organization Address [facility] de Phone Number [facility] [address] [facility]. [address] * (ABNORMAL) POC PCO2 (04/18/2025 9:17 AM EDT) POC pCO2, Arterial 50(H) 35 - 45 mm Hg 04/18/2025 9:24 AM EDT [facility] Blood, Arterial 04/18/2025 9 :17 AM EDT 04/18/2025 9:24 AM EDT us Ludin Jose MD POINT OF CARE TEST ORDERABLES Fi nal Result Performing Organization Address City/[facility] Co de Phone Number [facility] [address] [facility]. [address] * (ABNORMAL) POC pH (04/18/2025 9:17 AM EDT) POC pH, Arterial 7.34(L) 7.35 - 7.45 04/18/2025 9:24 AM EDT [facility] Blood, Arterial 04/18/2025 9 :17 AM EDT 04/18/2025 9:24 AM EDT us Ludin Jose MD POINT OF CARE TEST ORDERABLES Fi nal Result Performing Organization Address City/[facility]/ZIP Co de Phone Number [facility] [address] * POC HCG Qualitative, Urine (04/18/2025 6:16 AM EDT) Pathologist [facility] hCG Qualitative -Clinitek Negative Negative 04/18/2025 6:22 AM EDT [facility] Urine 04/18/2025 6:16 AM EDT 04/18/2025 6:22 AM EDT us Ludin Jose MD URINE ORDERABLES Final Result Performing Organization Address City/[facility] de Phone Number [facility] [address] * (ABNORMAL) Venous Blood Gas, Line/Syringe (04/18/2025 6:03 AM EDT) PH-Line Draw 7.42 7.32 - 7.42 04/18/2025 6:40 AM EDT [facility] PCO2-Line Draw 39(L) 41 - 51 mm Hg 04/18/2025 6:40 AM EDT [facility] PO2-Line Draw 37 25 - 40 mm Hg 04/18/2025 6:40 AM EDT [facility] HCO3-Line Draw 25 24 - 28 mmol/L 04/18/2025 6:40 AM EDT [facility] CO2 Content-Line Draw 27 25 - 29 mmol/L 04/18/2025 6:40 AM EDT [facility] Base Excess-Line Draw 0.8 -2.0 - 3.0 mmol/L 04/18/2025 6:40 AM EDT [facility] %HBO2-Line Draw 61.4 40.0 - 70.0 % 04/18/2025 6:40 AM EDT [facility] Carboxyhgb-Kaur e Draw 1.1 % 04/18/2025 6:40 AM EDT [facility] Comment: CARBOXYHEMOGLOBIN (CO) REFERENCE RANGES: Non-Smokers: <2 % Smokers: <8 % TOXIC: >20 % Methemoglobin- Line Draw 0.8 0.0 - 1.5 % 04/18/2025 6:40 AM EDT [facility] Reduced Hemoglobin-Kaur e Draw 36.8(H) 0.0 - 5.0 % 04/18/2025 6:40 AM EDT [facility] Venous, Line Draw 04/18/2025 6:03 AM EDT 04/18/2025 6:36 AM EDT Narrative [facility] - 04/18/2025 6:40 AM EDT Specimen is beyond 15 minutes from time of collection. Results may be compromised. Review results critically. us Ludin Jose MD LAB BLOOD ORDERABLES Final Resul t [facility] [address] * (ABNORMAL) Renal Function Panel w/EGFR (04/18/2025 6:03 AM EDT) Sodium 138 133 - 146 mmol/L 04/18/2025 8:09 AM EDT [facility] Potassium 3.3(L) 3.5 - 5.3 mmol/L 04/18/2025 8:09 AM EDT [facility] Chloride 104 98 - 110 mmol/L 04/18/2025 8:09 AM EDT [facility] CO2 26 21 - 33 mmol/L 04/18/2025 8:09 AM EDT [facility] Comment:High lactate dehydro genase concentrations in patient samples may cause falsely increased bicarbonate results. If markedly elevated LDH is observed or suspected, please assess results in conjunction with patient`s clinical presentation. In cases of discrepant results, consider evaluating CO2 in with a blood gas order. Anion Gap 8 3 - 16 mmol/L 04/18/2025 8:09 AM EDT [facility] BUN 12 7 - 25 mg/dL 04/18/2025 8:09 AM EDT [facility] Creatinine 0.77 0.60 - 1.30 mg/dL 04/18/2025 8:09 AM EDT [facility] Glucose 89 70 - 100 mg/dL 04/18/2025 8:09 AM EDT [facility] Calcium 9.0 8.6 - 10.3 mg/dL 04/18/2025 8:09 AM EDT [facility] Phosphorus 3.8 2.1 - 4.7 mg/dL 04/18/2025 8:09 AM EDT [facility] Albumin 3.8 3.5 - 5.7 g/dL 04/18/2025 8:09 AM EDT [facility] Osmolality, Calculated 285 278 - 305 mOsm/kg 04/18/2025 8:09 AM EDT [facility] EGFR >90 04/18/2025 8:09 AM EDT [facility] Comment: As of 2021, the [...] EDT 04/18/2025 6:45 AM EDT us Ludin Jsoe MD LAB BLOOD ORDERABLES Final Resul t [facility] [address] * (ABNORMAL) TEG-Standard Global Hemostasis (Rapid TEG with Heparin Effect, Contains a Baseline TEG) (04/18/2025 6:03 AM EDT) Citrated Kaolin Reaction Time (TEGHEPARINASE) 4.1(L) 4.6 - 9.1 minutes 04/18/2025 7:21 AM EDT [facility] Citrated Rapid Teg Maximum Amplitude (TEGHEPARINASE) 55.2 52.0 - 70.0 mm 04/18/2025 7:21 AM EDT [facility] Citrated Functional Fibrinogen Maximum Amplitude (TEGHEPARINASE) 17.2 15.0 - 32.0 mm 04/18/2025 7:21 AM EDT [facility] Citrated Kaolin W/Heparinase Reaction Time (TEGHEPARINASE) 4.2(L) 4.3 - 8.3 minutes 04/18/2025 7:21 AM EDT [facility] Citrated Kaolin K-Time (TEGHEPARINASE) 1.3(A) 0.8 - 2.1 minutes 04/18/2025 7:21 AM EDT [facility] Citrated Kaolin Angle (TEGHEPARINASE) 73.6(A) 63.0 - 78.0 degrees 04/18/2025 7:21 AM EDT [facility] Citrated Kaolin Maximum Amplitude (TEGHEPARINASE) 56.4 52.0 - 69.0 mm 04/18/2025 7:21 AM EDT [facility] Citrated Functional Fibrinogen- Fibrinogen Level (TEGHEPARINASE) 313.9 278.0 - 581.0 mg/dL 04/18/2025 7:21 AM EDT [facility] Whole Blood (Citrate) 04/18/2025 6:03 AM EDT 04/18/2025 6:45 AM EDT us Ludin Jose MD LAB BLOOD ORDERABLES Final Resul t [facility] [address] [facility] [place] [address], [facility] * Protime-INR (04/18/2025 6:03 AM EDT) Protime 15.1 12.1 - 15.1 seconds 04/18/2025 7:07 AM EDT [facility] INR 1.1 0.9 - 1.1 04/18/2025 7:07 AM EDT [facility] Comment: RECOMMENDED THERAPEUTIC RANGES USING INR : Stable oral anticoagulant therapy: 2.0 - 3.0 Mechanical prosthetic heart valve: 2.5 - 3.5 Recurrent acute myocardial infarction: 2.5 - 3.5 Plasma 04/18/2025 6:03 AM EDT 04/18/2025 6:45 AM EDT us Ludin Jose MD LAB BLOOD ORDERABLES Final Resul t Performing Organization Address City/[facility]/ZIP Co de Phone Number [facility] [address] [facility]. [address] * Magnesium (04/18/2025 6:03 AM EDT) Magnesium 2.2 1.5 - 2.5 mg/dL 04/18/2025 8:09 AM EDT [facility] Plasma 04/18/2025 6:03 AM EDT 04/18/2025 6:45 AM EDT us Ludin Jose MD LAB BLOOD ORDERABLES Final Resul t Performing Organization Address [facility] de Phone Number [facility] [address] [facility]. [address] * HIV 1+2 Antibody/Antigen with Reflex (04/18/2025 6:03 AM EDT) HIV 1+2 AB/AGN Nonreactive Nonreactive 04/18/2025 8:32 AM EDT [facility] Serum 04/18/2025 6:03 AM EDT 04/18/2025 6:45 AM EDT Narrative [facility] - 04/18/2025 8:32 AM EDT \HIVRNR us Ludin Jose MD LAB BLOOD ORDERABLES Final Resul t Performing Organization Address City/[facility] Co de Phone Number [facility] [address] [facility]. [address] * Hepatitis C RNA, Quant Reflex to Genotyp (04/18/2025 6:03 AM EDT) Pathologist [facility] [employer] Units Not Detected IU/mL 04/21/2025 11:40 AM EDT [facility] Comment:Test methodology for HCV RNA quantification is an FDA-approved nucleic acid amplification assay. The Lower Limit of Quantitation (LLOQ) is 15 IU/mL. The linear range of the assay is 15-100,000,000 IU/mL. The Limit of Detection (LoD) is 12.0 IU/mL for EDTA plasma. The reference range is Not Detected. IU log10 See Note log 10 IU/mL 04/21/2025 11:40 AM EDT [facility] Comment:HCV RNA not detected . Plasma 04/18/2025 6:03 AM EDT 04/18/2025 7:58 AM EDT us Ludin Jose MD LAB BLOOD ORDERABLES Final Resul t Performing Organization Address City/[facility]/ZIP Co de Phone Number [facility] [address] [facility]. [address] * Hepatitis B Core Antibody (04/18/2025 6:03 AM EDT) Pathologist [facility] Hep B Core Total Ab Nonreactive Nonreactive 04/18/2025 8:33 AM EDT [facility] Comment:Health Department no tified in accordance with reportable infectious disease guidelines. Serum 04/18/2025 6:03 AM EDT 04/18/2025 6:45 AM EDT Narrative [facility] - 04/18/2025 8:33 AM EDT A nonreactive final interpretation indicates that anti-HBc antibodies were not detected in the sample; it is possible that the individual is not infected with HBV. us Ludin Jose MD LAB BLOOD ORDERABLES Final Resul t [facility] [address] [facility]. [address] * (ABNORMAL) Hepatitis C Antibody (04/18/2025 6:03 AM EDT) HCV Ab Reactive( A) Nonreactive 04/18/2025 8:42 AM EDT [facility] Comment: Health Department notified in accordance with reportable infectious disease guidelines. Health Department notified in accordance with reportable infectious disease guidelines. Serum 04/18/2025 6:03 AM EDT 04/18/2025 6:45 AM EDT On license of [facility] - 04/18/2025 8:42 AM EDT Presumptive evidence of antibodies to HCV: follow CDC recommendations for supplemental testing. us Ludin Jose MD LAB BLOOD ORDERABLES Final Resul t Performing Organization Address [facility] Co de Phone Number [facility] [address] [place] [address]. [address] * Hepatitis B Surface Antibody, Quantitati (04/18/2025 6:03 AM EDT) HBSAB NUMBER 5.17 0.00 - 9.99 mIU/mL 04/18/2025 8:46 AM EDT [facility] Hep B S Ab Nonreactive Nonreactive 04/18/2025 8:46 AM EDT [facility] Serum 04/18/2025 6:03 AM EDT 04/18/2025 6:45 AM EDT On license of [facility] - 04/18/2025 8:46 AM EDT Individual is considered not immune to HBV infection. us Ludin Jose MD LAB BLOOD ORDERABLES Final Resul t Performing Organization Address City/[facility] Co de Phone Number [facility] [address] [place] [address]. [address] * Hepatitis B surface antigen (04/18/2025 6:03 AM EDT) Hep B Surface Ag Nonreactive Nonreactive 04/18/2025 8:37 AM EDT [facility] Comment:Health Department no tified in accordance with reportable infectious disease guidelines. Serum 04/18/2025 6:03 AM EDT 04/18/2025 6:45 AM EDT Narrative [facility] - 04/18/2025 8:37 AM EDT Specimen is considered negative for HBsAg. us Ludin Jose MD LAB BLOOD ORDERABLES Final Resul t Performing Organization Address [facility] Co de Phone Number [facility] [address] [facility]. [address] * (ABNORMAL) Hepatic Function Panel (04/18/2025 6:03 AM EDT) Total Bilirubin 1.5 0.0 - 1.5 mg/dL 04/18/2025 8:09 AM EDT [facility] Bilirubin, Direct 0.53(H) 0.00 - 0.40 mg/dL 04/18/2025 8:09 AM EDT [facility] AST 37 13 - 39 U/L 04/18/2025 8:09 AM EDT [facility] ALT 25 7 - 52 U/L 04/18/2025 8:09 AM EDT [facility] Alkaline Phosphatase 118 36 - 125 U/L 04/18/2025 8:09 AM EDT [facility] Total Protein 6.7 6.4 - 8.9 g/dL 04/18/2025 8:09 AM EDT [facility] Albumin 3.8 3.5 - 5.7 g/dL 04/18/2025 8:09 AM EDT [facility] Bilirubin, Indirect 0.97 0.00 - 1.10 mg/dL 04/18/2025 8:09 AM EDT [facility] Plasma 04/18/2025 6:03 AM EDT 04/18/2025 6:45 AM EDT us Ludin Jose MD LAB BLOOD ORDERABLES Final Resul t [facility] [address] [facility]. [address] * Fibrinogen (04/18/2025 6:03 AM EDT) Fibrinogen 283 218 - 406 mg/dL 04/18/2025 7:08 AM EDT [facility] Plasma 04/18/2025 6:03 AM EDT 04/18/2025 6:45 AM EDT us Ludin Jose MD LAB BLOOD ORDERABLES Final Resul t Performing Organization Address City/[facility]/ZIP Co de Phone Number [facility] [address] [facility] [place] [address], [facility] * (ABNORMAL) Differential (04/18/2025 6:03 AM EDT) Neutrophils Relative 38.8(L) 40.0 - 80.0 % 04/18/2025 6:58 AM EDT [facility] Lymphocytes Relative 28.3 15.0 - 45.0 % 04/18/2025 6:58 AM EDT [facility] Monocytes Relative 14.6(H) 0.0 - 12.0 % 04/18/2025 6:58 AM EDT [facility] Eosinophils Relative 17.3(H) 0.0 - 8.0 % 04/18/2025 6:58 AM EDT [facility] Basophils Relative 1.0 0.0 - 1.0 % 04/18/2025 6:58 AM EDT [facility] nRBC 0 0 - 0 /100 WBC 04/18/2025 6:58 AM EDT [facility] Neutrophils Absolute 1,436(L) 1,520 - 8,640 /uL 04/18/2025 6:58 AM EDT [facility] Lymphocytes Absolute 1,047 570 - 4,860 /uL 04/18/2025 6:58 AM EDT [facility] Monocytes Absolute 540 0 - 1,296 /uL 04/18/2025 6:58 AM EDT [facility] Eosinophils Absolute 640 0 - 864 /uL 04/18/2025 6:58 AM EDT [facility] Basophils Absolute 37 0 - 108 /uL 04/18/2025 6:58 AM EDT [facility] Whole Blood 04/18/2025 6:03 AM EDT 04/18/2025 6:45 AM EDT us Ludin Jose MD LAB BLOOD ORDERABLES Final Resul t [facility] [address] [facility]. [address] * (ABNORMAL) CBC (04/18/2025 6:03 AM EDT) WBC 3.7(L) 3.8 - 10.8 10E3/uL 04/18/2025 6:58 AM EDT [facility] RBC 3.74(L) 3.80 - 5.10 10E6/uL 04/18/2025 6:58 AM EDT [facility] Hemoglobin 11.7 11.7 - 15.5 g/dL 04/18/2025 6:58 AM EDT [facility] Hematocrit 34.5(L) 35.0 - 45.0 % 04/18/2025 6:58 AM EDT [facility] MCV 92.4 80.0 - 100.0 fL 04/18/2025 6:58 AM EDT [facility] MCH 31.3 27.0 - 33.0 pg 04/18/2025 6:58 AM EDT [facility] MCHC 33.9 32.0 - 36.0 g/dL 04/18/2025 6:58 AM EDT [facility] RDW 14.8 11.0 - 15.0 % 04/18/2025 6:58 AM EDT [facility] Platelets 100(L) 140 - 400 10E3/uL 04/18/2025 6:58 AM EDT [facility] MPV 9.5 7.5 - 11.5 fL 04/18/2025 6:58 AM EDT [facility] Whole Blood 04/18/2025 6:03 AM EDT 04/18/2025 6:45 AM EDT us Ludin Jose MD LAB BLOOD ORDERABLES Final Resul t [facility] [address] * APTT, No Anticoagulant (04/18/2025 6:03 AM EDT) aPTT 28.7 25.5 - 35.0 seconds 04/18/2025 7:08 AM EDT [facility] Plasma 04/18/2025 6:03 AM EDT 04/18/2025 6:45 AM EDT us Ludin Jose MD LAB BLOOD ORDERABLES Final Resul t Performing Organization Address [facility] Co de Phone Number [facility] [address] [facility]. [address] * hCG, quantitative, (04/18/2025 6:03 AM EDT) hCG Quant 0.00 mIU/mL 04/18/2025 8:51 AM EDT [facility] Comment: Approximate Approximate Gestational Age hCG Range (Weeks) mIU/mL 0.2-1 5-50 1-2 50-500 2-3 100-5000 3-4 500-10015 4-5 1000-09814 5-6 [id number] 6-8 [id number] 8-12 [id number] This assay is not approved for, and should not be used to diagnose any condition unrelated to . A Negative hCG result is <5.0 mIU/mL. Plasma 04/18/2025 6:03 AM EDT 04/18/2025 6:45 AM EDT Narrative [facility] - 04/18/2025 8:51 AM EDT The testing method for beta-HCG is a chemiluminescent immunoassay manufactured by [employer] Concentrations of beta-HCG obtained by different assay methods or kits may vary and cannot be used interchangeably. Beta-HCG results cannot be interpreted as absolute evidence of the presence or absence of malignant disease. us Ludin Jose MD LAB BLOOD ORDERABLES Final Resul t Performing Organization Address [facility] Co de Phone Number [facility] [address] [place] [address], [facility] * Surgical Pathology Exam (04/18/2025 12:00 AM EDT) 04/18/2025 04/19/2025 Stephanie [facility]OWERPATH - 04/18/2025 12:00 AM EDT CASE: [id number] PATIENT: MINDY WADE Clinical History: Living donor liver transplant Pre-Operative Diagnosis: Pre-transplant evaluation for chronic liver disease Post-Operative Diagnosis: Pre-transplant evaluation for chronic liver disease Specimen(s) Submitted: A. [place] gallbladder ; B. common bile duct ; C. [place] liver CPT Code(s): 11804 X 1; 62943 X 1; 76065 X 1; 22287 X 5; 99405 X 1 Additional Information: FINAL DIAGNOSIS: A. Gallbladder, [place], resection: - No significant pathologic change. - Negative for dysplasia or malignancy. B. Common bile duct, excision: - Biliary epithelium with mild reactive change. - Negative for malignancy. C. Liver, [place], resection: - Cirrhosis, mild septal inflammation and burnt out steatohepatitis; clinical history of HCV and alcoholic liver disease. - Negative for neoplasm. Dave Wilkinson MD (Resident) Gross Description: A. Received in formalin, labeled with the patient's name Mindy Wade and A. [place] gallbladder is a 12.0 x 4.5 x [...] of the gallbladder is eisenberg-yellow and velvety. Luggage Attendant sections are submitted in cassettes [id number]. (Dave Wilkinson MD (Resident)/ab) B. Received in formalin, labeled with the patient's name Mindy Wade and B. Common bile duct is a piece of eisenberg-white fibrous luminal structure that measures 1.5 cm in length x 0.6 cm in diameter and attached cauterized soft tissue. The specimen is trisected longitudinally and entirely submitted in cassette [id number]. (Dave Wilkinson MD (Resident)/ab) C. Received in formalin, labeled with the patient's name Bill Wade. [place] liver is a 1274-gram, 18.5 x 16.0 [...] x 1.0 cm and appears grossly well-circumscribed. Luggage Attendant sections are submitted in cassettes [id number] as follows: C1: Hilar margin. C2-C4: Luggage Attendant section of the right lobe. C5-C8: Luggage Attendant section of the left lobe, with C5 containing real estate representative section of the well-circumscribed and subcapsular [...] Pathologist signing this report is located at [facility], [address] [place] [address], [facility], , CLIA ID: [id number] Ludin Jose MD PATHOLOGY/CYTOLOGY ORDERABLES Fi nal Result POWERPATH documented in this encounter Visit Diagnoses Diagnosis Immunosuppression (CMS-HCC)- Primary Pre-transplant evaluation for chronic liver disease Generalized edema Edema Melena Blood in stool Localized swelling, mass, or lump of upper extremity, right Living related donor renal transplant 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) End-stage liver disease (CMS-HCC) Other sequelae of chronic liver disease Melena Blood in stool documented in this encounter Administered Medications Inactive [...] 05/02/2025 10:19 PM EST 975 mg albuterol ([id number]) 90 mcg/actuation inhaler 2 puff 2 puff, [...] 8:56 AM EST 200 mg heparin (porcine) injection 5,000 Units 5,000 Units, [...] PRN, Wheezing, Starting on 04/23/25 at 0303 lidocaine (LIDODERM) 5 % 2 patch 2 [...] times daily, First dose on Fri04/28/25 at 2100, LEVEL 2 HAZARDOUS MEDICATION Given [...] EDT 80 mg sodium chloride 0.9 % IV infusion 20 mL/hr, Intravenous, Continuous, Starting on Fri05/03/25 at 0830, For 12 hours, Normal Saline 0.9% run at O only during administration of blood products. New [...] at due time)0843 (Given - Provider: Makenzie Cnaseco, KONSTANTIN)1409 (Given - Provider: Makenzie Canseco RN)2219 (Given [...] 0837 (Given - Provider: Julianne Costello RN) furosemide (LASIX) injection 20 mg (COMPLETED) 20 [...] Rhoades RN) 0517 (Given - Provider: Tisha Rhoades, KONSTANTIN)1217 (Given - Provider: Makenzie Canseco RN)2112 (Given [...] Terrazas RN)1303 (Given - Provider: Jc Terrazas RN)2140 [...] MEDICATION 0856 (Given - Provider: Jc Terrazas RN)2139 [...] 17 g, Oral, Daily, First dose on Janiya 04/21/25 at 0730 0857 (Given - Provider: Jc [...] (after last modification) on Fri05/02/25 at 2100 211 (Given - Provider: Tisha Rhoades RN) 0837 [...] 2140 (Given - Provider: Tisha Rhoades RN) 211 (Given - Provider: Tisha Rhoades RN) ursodioL [...] PRN Medication Order 05/01/2025 05/02/2025 05/03/2025 albuterol (UELPIYRMG-XBYIEA-AGW TOLIN) 90 mcg/actuation inhaler 2 puff 2 [...] Jc [place] RN)2145 (Given - Provider: Tisha Rhoades RN) 0202 (Given - Provider: Tisha Rhoades RN)0603 (Given - Provider: Tisha Rhoades RN)1017 (Given - Provider: Makenzie Canseco RN)1410 (Given - Provider: Makenzie Canseco RN)1810 (Given - Provider: Makenzie Canseco RN)2219 (Given - Provider: Tisha Rhoades, KONSTANTIN) 0302 (Given - Provider: Tisha Rhoades, RN)0738 (Given - Provider: Tisha Rhoades, RN)1120 (Given - Provider: Julianne Costello, KONSTANTNI)1550 (Given - Provider: Julianne Costello RN) phenoL [...] documented as of this encounter Care Teams Adobe Block Maker Relationship Specialty Start Date End Date Geoff Graves DO [address] [place] [address] PCP - General 02/01/25 Farida Ortega, [employer] [address] [place] [address] Referring Physician Gastroenterology 09/02/23 documented as of this encounter
--- OUTSIDE RECORDS SUMMARY | 2025-04-23 08:00 | XMS_ITS | Encounter Summary ---
Author Organization [facility] Address [address] [place] [address] Care Team Providers Care Saw Maker Name Role Phone Geoff Graves DO Primary Care Provider Farida Ortega STEAM CLEANING MACHINE OPERATOR Unavailable [phone] Source Comments This information has been disclosed [...] release of HIV test results or diagnoses. [id number] Health Reason for Visit * Auth/Cert (Routine) Specialty Diagnoses / Procedures Referred By Roselyn t Referred To Contact Diagnoses Pre-transplant evaluation for chronic liver disease [Z01.818] Procedures LIVING DONOR TRANSPLANT RECIPIENT [facility] PERIOP [address] [place] [address] Phone: tel: Referral ID Status Reason Start Date Expiration Date Visits Re quested Visits Authorized [id number] 1 1 Encounter Details Date Type Department Care Team (Late st Contact Info) Description 04/23/2025 9:00 AM EDT - 04/23/2025 12:13 PM EDT Surgery [facility] PERIOP [address] [place] [phone] Alejandra Wilson MD [address] [place] [address] [place] [phone] EMERGENCYEXPLORATORY LAP, REVISION OF JJ ANASTOMSIS, GASTRIC LAVAGE Surgery Details Date/Time Status Location OR Service Patient Class Case Class Case Type Trauma Case? 04/23/2025 9:00 AM Posted OR 17 Transplant Inpatient Emergent Panel 1 Procedure LRB Anes Op Region Wound Class Comments EMERGENCYEXPLORATORY LAP, RE VISION OF JJ ANASTOMSIS, GASTRIC LAVAGE N/A General Abdomen Clean Surgeon Surgeon Role Service Panel Alejandra Wilson MD Primary Transplant 1 Quan Yates III, MD Transplant 1 documented in this encounter Social History Tobacco Use Types Packs/Day Years Used Date Smoking Tobacco: Former Cigarettes 0.3 1.2 0 07/22/2014 - 07/22/2015 Smokeless Tobacco: Never Alcohol Use Standard Drinks/Week Comments Not Currently 0 (1 standard drink = 0.6 oz pur e alcohol) [facility] Utilities Answer Date Recorded In [...] any time in the past 12 m [facility], were you homeless or living in a half-way (including now)? No 04/19/2025 Yearly Questionnaire Answer [...] Sign Reading Time Taken Comments Blood Pressure 118/78 04/23/2025 12:00 PM EDT Pulse 82 04/23/2025 12:00 PM EDT Temperature 36.2 C (97.1 F) 04/23/2025 12:00 PM EDT Respiratory Rate 10 04/23/2025 12:00 PM EDT Oxygen Saturation 94% 04/23/2025 12:00 PM EDT Inhaled Oxygen Concentration 94% 04/23/2025 1 2:00 PM EDT Weight 75.5 kg (166 lb 6.4 oz) 04/22/2025 3:53 A M EDT Height 165.1 cm (5' 5 ) 04/23/2025 3:00 AM EDT Body Mass Index 24.28 04/29/2025 5:08 AM EST documented in this encounter Functional Status * Peripheral Vascular Question Answer Date of Assessment Author Compression boots Yes 04/23/2025 8:00 AM EDT Ammon Case RN Peripheral Vascular (WDL) X 04/23/2025 8:0 0 AM EDT Ammon Case RN * Question Answer Date of Assessment Author Anti-Embolism Devices Bilateral;Sequenti al compression devices, below knee 04/23/2025 8:00 AM EDT Ammon Case RN Anti-Embolism Intervention Declined 04/21/2025 8:00 AM EDT Yaima Cohen RN * AUDIT-C Score Answer Date of Assessment Author 0 04/22/2025 2:18 AM EDT Marilee Ramsey RN * Question Answer Date of Assessment Author Q1: How often do you have a drink containing alcohol? Never 04/22/2025 2:18 AM EDT Marilee Ramsey RN Q2: How many drinks containing alcohol do you have on a typical day when you are drinking? Patient does not drink 04/22/2025 2:18 AM HARITHAT Marilee Ramsey RN Q3: How often do you have six or more drinks on one occasion? Never 04/22/2025 2:18 AM HARITHAT Marilee Ramsey RN documented as of this encounter Discharge Summaries * ASIM Enriquez, AJ - 05/03/2025 2:14 PM EST [facility] Management Discharge Summary Patient name: Mindy [...] orders have been faxed to facility by [facility] [place]. The plan has been reviewed: Family Member Name and Relationship Notified at Discharge: Khloe Wade-spouse Family Contact Number:[phone] No further CM/SW needs. This plan has been reviewed with the multi-disciplinary team. Treatment Preferences Treatment Preferences: Distance Post-Discharge Goals Patient's Post-Discharge goals: Get stronger Post Acute Care Provider Information: Community Services at Discharge Community Services at Home post discharge: Home Health Assisted Health Care Name/Phone # post discharge: [facility] [phone] Home Health Services Types at Discharge: PT/OT/AEROPLANE PILOT AJ Mata [phone] * Giovanny Louis MD - 05/03/2025 2:06 PM EST Images from the original note were not included. [facility] Inpatient Discharge Summary Patient: Mindy Wade Age: 35 y.o. CSN: [id number] Date of Admission: 04/18/2025 Date of Discharge: 05/03/2025 Attending Physician: Jose Daniel MD Primary Care Physician: GEOFF GRAVES DO Diagnoses Present on Admission Past 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: Diagnosis Date Abdominal hernia 02/21/2023 Alcoholic hepatitis (CMS-HCC) Anxiety Ascites Chronic diarrhea 08/21/2022 Cirrhosis ([facility]-HCC) Cystitis Depression Hepatitis C Discharge Diagnoses There are no hospital problems to display for this patient. Operations/Procedures Performed (include dates) Surgeries: Surgical/Procedural Cases on this Admission Case IDs Date Procedure Surgeon Location Status [id number] 04/18/25 LIVING DONOR LIVER TRANSPLANT Ludin Jose MD OR Comp [id number] 04/23/25 PUSH ENTEROSCOPY Kelsey Moyer MD ENDOSCOPY Comp [id number] 04/23/25 EMERGENCYEXPLORATORY LAP, REVISION OF JJ ANASTOMSIS, [...] at 05/02/2025 9:24 AM EST US Duplex Jaz-Nwg-Twclpch Comp Final Result IMPRESSION: ABDOMINAL ULTRASOUND Normal [...] at 04/25/2025 11:02 AM EST US Duplex Hht-Xpp-Pxgvdul Comp Final Result IMPRESSION: RIGHT UPPER QUADRANT [...] at 04/23/2025 2:30 PM EDT US Duplex Ffj-Hnl-Qutjuzf Comp Final Result IMPRESSION: RIGHT UPPER QUADRANT [...] Duplex Upper Left Final Result US Duplex Meg-Svd-Jhjznyx Comp Final Result IMPRESSION: RIGHT UPPER QUADRANT [...] at 04/19/2025 2:31 PM EDT US Duplex Qdk-Ole-Gdkevgl Comp Final Result IMPRESSION: RIGHT UPPER QUADRANT [...] Consulting Services (include reason) SICU PT/OT Social Work/Stained Glass Painter GI PICC Allergies Allergies[1] Discharge Medications Medication [...] 120 capsule Refills: 5 naloxone 4 mg/actuation U[place]ala Commonly known as: NARCAN Apply 1 spray [...] Your Medications These medications were sent to [facility] [address] [place] [address] Hours: Friday - Friday: 8:00AM - 6:00PM acetaminophen 325 MG tablet aspirin 81 MG chewable tablet calcium-vitamin D 500 mg-5 mcg (200 unit) per tablet fluconazole 200 MG tablet lidocaine 5 % melatonin 3 mg Tab methocarbamoL 500 MG tablet mycophenolate 250 mg capsule naloxone 4 mg/actuation U[place]ala oxyCODONE 5 MG immediate release tablet oxyCODONE [...] Discharged on a bowel regimen as needed. [facility] and recommended home with [facility]. ENDO - A1C is 4.4. [...] Patient and family received post-transplant education from discharge coordinator as well as medication teaching from [...] listed above 4. Discharge specific orders: See [facility] Note 5. Core measures followed: (if this is a core measure patient) Discharge Weight: 145 lb 14.4 oz (66.2 kg) Disposition Home with assistance Home with supervision Home with Home Health Follow-Up Appointments Future Appointments Date Time Provider Department Center 05/10/2025 8:20 AM LTRA SURGERY, [facility] LTRA [facility]OX HOX [facility] - [address] [address] Signed: GIOVANNY LOUIS MD Transplant Surgery 05/03/2025 [...] Jose Daniel MD Transplant and Hepatobiliary Surgery [phone] (cell) documented in this encounter Discharge Instructions [...] kept under 2 gm/day. Please discuss withyour behavioral health care coordinator if you have any question about appropriate dose to take. Other Instructions: Call post-liver transplant clinic with questions [phone] or call [facility] at [phone] and ask for the liver discharge coordinator distance education faculty liaison if you experience any of the following: [...] 5# in 24 hours Follow-Up Appointment: Your discharge coordinator will provide you with a calendar [...] PM EST 04/19/2025 naloxone (NARCAN) 4 mg/actuation [place]ala Apply 1 spray in one nostril if [...] Immunosuppression schedule as per Education Note by discharge coordinator earlier this admission. Reviewed discharge medications [...] in clinic? (If significant deficits, communicate with discharge coordinator): Standard continual education Future medications to [...] capsule, Refills: 5 naloxone (NARCAN) 4 mg/actuation [place] Apply 1 spray in one nostril if [...] transplant; Alcoholic cirrhosis of liver with ascites ([facility]-HCC) polyethylene glycol (GLYCOLAX) 17 gram/dose powder Mix [...] Tresa Beltran PharmD Solid Organ Transplant Clinical Stave Saw Operator Contact via [employer] Secure Chat * Shaneka Hector, PT - 05/02/2025 11:39 AM EST Physical Therapy Treatment Name: Mindy Wade : 1990 Attending Physician: Ludin Jose MD Admission Diagnosis: Liver transplant recipient (CMS-HCC) [Z94.4] S/P liver transplant (CMS-HCC) [Z94.4] End stage liver disease (CMS-HCC) [K72.10] Date: 05/02/2025 Room: [address] [place] [address] Reviewed Pertinent hospital course: Yes Hospital Course [...] of fatigue. During 125' back to room, AUDIO SPECIALIST used instead of RW and pt able [...] activity from stairs w/o RW but with AUDIO SPECIALIST from pt's spouse) Unable to progress further [...] Device Standing-Dynamic Assistive Device: Rolling walker (& AUDIO SPECIALIST) Gait belt used: Informed patient that they [...] Long-term goal to be met by: 05/26/25 Grades 1 Thru 5 Teacher Goal : Pt will ambulate 250' independently [...] Tresa Beltran PharmD Solid Organ Transplant Clinical Stave Saw Operator Contact via [employer] Secure Chat * NANCY Randhawa - 05/02/2025 10:17 AM EST Transplant Surgery Progress Note Name: Mindy Wade CSN: [id number] Date: 05/02/2025 10:17 AM OR Date: 04/18/2025 [...] 4.1 4.1 CL 105 104 103 CO2 26 BUN 18 26* CREATININE 0.87 0.79 0.99 GLUCOSE 106* [...] PICC DISPO: 8ccp, planning for home with [facility] tmrw if LFTs continue to downtrend NANCY RANDHAWA Transplant Surgery Cosigned by Jsoe Daniel MD at 05/02/2025 5:20 PM EST [...] Jose Daniel MD Transplant and Hepatobiliary Surgery [phone] (cell) * Giovanny Louis MD - 05/01/2025 6:03 AM EST Transplant Surgery Progress Note Name: Mindy Wade CSN: [id number] Date: 05/01/2025 6:03 AM OR Date: 04/18/2025 [...] multidisciplinary team on 05/01/25. Ludin Jose MD Densitometer Reader of Transplant Surgery [phone] (m) * Quan Yates III, MD - [...] Surgery Progress Note Name: Mindy Wade CSN: [id number] Date: 04/30/2025 6:54 AM OR Date: 04/18/2025 [...] appropriate for situation. Labs: Recent Labs 04/28/25 0604/29/2552404/30/25 05 WBC 6.2 5.3 4.3 HGB 8.4* 7.9* [...] 169* 151* 127* Recent Labs 04/28/25 0637 04/29/2552404/30/25 0512 AST 66* 62* 85* ALT 104* 94* 98* BILITOT 3.4* 3.1* 3.1* BILIDIRECT 2.28* 2.02* 2.10* ALKPHOS 397* 452* 600* ALBUMIN 2.2* 2.2* 2.4* 2.4* 3.2* 3.2* No results for input(s): INR , PROTIME in the last 72 hours. Imaging: US Duplex Ehn-Esm-Yviivva Comp Result Date: 04/29/2025 EXAM: US ABDOMEN LIMITED EXAM: US DUPLEX GTE-[id number] COMPLETE INDICATION: Post-op liver transplant, right lobe [...] EXAM: US ABDOMEN LIMITED EXAM: US DUPLEX DNA-JDAQOG-JROJCRW COMPLETE INDICATION: Post-op liver transplant, right lobe [...] multidisciplinary team on 04/30/25. Ludin Jose MD Densitometer Reader of Transplant Surgery [phone] (m) * Manisha Barrios, OT - 04/29/2025 4:58 PM EST Occupational Therapy Treatment Name: Mindy Wade : 1990 Attending Physician: Ludin Jose MD Admission Diagnosis: Liver transplant recipient (CMS-HCC) [Z94.4] S/P liver transplant (CMS-HCC) [Z94.4] End stage liver disease (CMS-HCC) [K72.10] Date: 04/29/2025 Room: [address] [place] [address] Reviewed Pertinent hospital course: Yes Hospital Course [...] for toileting (goal met and updated 04/22) Skilled Nursing Goal : pt will perform IADL task assessment terminal supervisor goal to be met in: 2 weeks [...] liver disease (CMS-HCC) [K72.10] Date: 04/29/2025 Room: [address] [place] [address] Reviewed Pertinent hospital course: Yes Hospital Course [...] Long-term goal to be met by: 05/26/25 Skilled Nursing Goal : Pt will ambulate 250' independently [...] 10:19 AM EST TXP - Follow Up [facility] Medical Nutrition Therapy Follow-Up Diet [...] Pertinent Labs: Recent Labs 04/27/25 0456 04/28/25 63604/29/25 0525 WBC 3.5* 6.2 5.3 HGB 7.6* 8.4* 7.9* HCT 21.7* 24.1* 23.3* PLT 62* 111* 92* Recent Labs 04/27/25 0301 04/28/2537 04/29/25524 NA 138 136 135 K 4.2 3.7 4.1 CL 112* 106 108 CO2 24 23 23 BUN 17 17 18 CREATININE 0.57* 0.68 0.75 GLUCOSE 224* 105* 95 CALCIUM 7.0* 7.5* 7.7* MG 1.7 1.9 1.7 PHOS 2.4 2.4 3.0 Recent Labs 04/27/25 03004/28/2563604/29/25524 AST 74* 66* 62* ALT 104* 104* [...] Based on DBW of 68.1 kg Kcals/day: 3433-8155 (25-30 kcals/kg) Protein g/day: 100-140 (1.5-2.0 g/kg) [...] Dietitian - Solid Organ Transplant Contact via [employer] Chat * Yolanda Vang RD - 04/29/2025 [...] to transplant RD. Please reach out (preferably [employer] Secure Chat) if there are any questions or concerns. Yolanda Vang RD, JERARDO Metabolic Support Services * Gilmer Rivera CNP - 04/29/2025 7:46 AM EST Transplant Surgery Progress Note Name: Mindy Wade CSN: [id number] Date: 04/29/2025 7:41 AM OR Date: 04/18/2025 Subjective Awake and alert. No distress. Reports that she had some right upper arm redness that went up into her neck/ jaw. [place] as though this was related to [employer]. [...] dilatation, ileus pattern. Report Verified by: Mark Ptitman MD at 04/29/2025 7:21 AM EST Assessment/Plan [...] multidisciplinary team on 04/29/25. Ludin Jose MD Densitometer Reader of Transplant Surgery [phone] (m) * Jackie Hernandez OT - 04/28/2025 [...] with the following information written by thecertified mechanic's assistant. * Farhan Marcano, PT - 04/28/2025 [...] schedule allows Time Attempted: 1049 * Ana Brooks CNP - 04/28/2025 9:45 AM EST Transplant Surgery Progress Note Name: Mindy Wade CSN: [id number] Date: 04/28/2025 9:45 AM OR Date: 04/18/2025 [...] multidisciplinary team on 04/28/25. Ludin Jose MD Densitometer Reader of Transplant Surgery [phone] (m) * Yolanda Vang RD - 04/28/2025 [...] Surgery Progress Note Name: Mindy Wade CSN: [id number] Date: 04/27/2025 10:30 AM OR Date: 04/18/2025 [...] on 04/27/25. Looks a lot better today. [place] trial NGT. Labs stable. Continue to walk and normalize. Dc incisional vac. Ludin Jose MD Densitometer Reader of Transplant Surgery [phone] (m) * Kalie Muse OT - 04/26/2025 11:58 AM EST Occupational Therapy Treatment Name: Mindy Wade : 1990 Attending Physician: Alejandra Wilson MD Admission Diagnosis: Liver transplant recipient (CMS-HCC) [Z94.4] S/P liver transplant (CMS-HCC) [Z94.4] End stage liver disease (CMS-HCC) [K72.10] Date: 04/26/2025 [facility] [address] Reviewed Pertinent hospital course: Yes Hospital Course [...] for toileting (goal met and updated 04/22) Skilled Nursing Goal : pt will perform IADL task assessment FCI goal to be met in: 2 weeks [...] patient verbalized understanding. OT Time Start Time: 0958 Stop Time: 1021 Time Calculation (min): 23 [...] liver disease (CMS-HCC) [K72.10] Date: 04/26/2025 Room: [facility] [address] Reviewed Pertinent hospital course: Yes Hospital Course [...] Long-term goal to be met by: 05/26/25 Skilled Nursing Goal : Pt will ambulate 250' independently [...] Surgery Progress Note Name: Mindy Wade CSN: [id number] Date: 04/26/2025 9:48 AM OR Date: 04/18/2025 [...] EXAM: US ABDOMEN LIMITED EXAM: US DUPLEX [id number]-[id number] COMPLETE INDICATION: Liver Transplant DATE: 04/25/2025 9:37 [...] at 04/25/2025 11:02 AM EST US Duplex Zhs-Wug-Amfnwsn Comp Result Date: 04/25/2025 EXAM: US ABDOMEN LIMITED EXAM: US DUPLEX HKO-[id number] COMPLETE INDICATION: Liver Transplant DATE: 04/25/2025 9:37 [...] morning. Will get KUB. Ludin Jose MD Densitometer Reader of Transplant Surgery [phone] (m) * Raf Talley MD - 04/26/2025 [...] times a day. naloxone (NARCAN) 4 mg/actuation Upsala Apply 1 spray in one nostril if [...] No PaO2 result within 12 hours. IBW: [place] body weight: 57 kg (125 lb 10.6 [...] baseline or with provocation, shows a very fewrpsatmz-ny-ulxo atrial level shunt. There is a shunt [...] in sodium chloride 0.9 % 100 mL Wtsv5Wdl IVPB 3.375 g Every8 hours 04/25/2025 -- Admin Instructions: Use Rvqo2Gub Adapter - Mix Thoroughly Before Administration Route: [...] (12x doses in last 24 hours) - [facility] Exam: Intubated and sedation; unable [...] use of seat during bathing tasks - AEROPLANE PILOT Recs: Dispo: stepdown Code Status: Full Code [...] Tresa Beltran PharmD Solid Organ Transplant Clinical Stave Saw Operator Contact via [employer] Secure Chat * Gloria Chen MD - 04/25/2025 11:21 AM EST Transplant Surgery Progress Note Name: Mindy Wade CSN: [id number] Date: 04/25/2025 11:21 AM OR Date: 04/18/2025 [...] EXAM: US ABDOMEN LIMITED EXAM: US DUPLEX [id number]-[id number] COMPLETE INDICATION: Liver Transplant DATE: 04/25/2025 9:37 [...] at 04/25/2025 11:02 AM EST US Duplex Uix-Bbl-Ihjzjwj Comp Result Date: 04/25/2025 EXAM: US ABDOMEN LIMITED EXAM: US DUPLEX FJR-[id number] COMPLETE INDICATION: Liver Transplant DATE: 04/25/2025 9:37 [...] due to hemodynamic instability. Ludin Jose MD Densitometer Reader of Transplant Surgery [phone] (m) * Raf Talley MD - 04/25/2025 [...] times a day. naloxone (NARCAN) 4 mg/actuation Upsala Apply 1 spray in one nostril if [...] No FiO2 recorded within 12 hours. IBW: [place] body weight: 57 kg (125 lb 10.6 [...] baseline or with provocation, shows a very nrnkccoxlr-iw-iihr atrial level shunt. There is a shunt [...] - No active issues HEMATOLOGIC Labs: Lab 04/25/2551704/25/25 0005 04/24/25 1840 04/24/25 1229 04/24/25 0436 [...] in sodium chloride 0.9 % 100 mL Bwvk8Phw 4.5 g Every 8 hours 04/23/2025 -- Admin Instructions: Use Acsc2Mwv Adapter - Mix Thoroughly Before Administration Route: [...] extremities prior to intubation and seadtion GCS: [place] Coma Scale Score: 15 (Eye Openin, Best Verbal Response: 5, Best Motor Response: 6) No data found. A/P: #Sedation/Analgesia - Dilaudid (11x doses in last 24 hours) - [facility] Plan for tylenol, Robaxin, PRN Dilaudid [...] use of seat during bathing tasks - AEROPLANE PILOT Recs: Dispo: Remain in SICU Code Status: [...] Surgery Progress Note Name: Mindy Wade CSN: [id number] Date: 04/24/2025 6:43 AM OR Date: 04/18/2025 [...] per 24 hour Intake 6095.15 ml Output 2022 ml Net 4072.15 ml Physical Exam: Constitutional: [...] 04/23/25 1130 04/23/25 1146 04/24/25 0000 04/24/25 043 AST 59* 65* -- -- 77* ALT 81* 78* -- -- 98* BILITOT 1.4 2.7* -- -- 2.9* BILIDIRECT 0.92* 2.09* -- -- 2.19* ALKPHOS 63 55 -- -- 84 ALBUMIN 2.2* 2.2* 2.3* 2.3* < > 2.5* 2.4* 2.4* < > = values in this interval not displayed. Recent Labs 04/23/25 1811 04/24/25 0000 04/24/25435 INR 1.1 1.1 1.1 PROTIME 15.1 14.9 14.7 Imaging: US Abdomen Limited Result Date: 04/23/2025 EXAM: US ABDOMEN LIMITED EXAM: US DUPLEX [id number] COMPLETE INDICATION: Liver Transplant COMPARISON: None TECHNIQUE: [...] at 04/23/2025 2:30 PM EDT US Duplex Ojh-Bky-Hyncaeg Comp Result Date: 04/23/2025 EXAM: US ABDOMEN LIMITED EXAM: US DUPLEX [id number]-[id number] COMPLETE INDICATION: Liver Transplant COMPARISON: None TECHNIQUE: [...] 12:32 PM EST Associated attestation - Alejandra Wilosn MD - 04/24/2025 12:32 PM EST This patient was seen and examined by the STEVEN/Resident team on 04/24/2025. I have discussed the patient's care with the team. Immunosuppression reviewed and discussed with multidisciplinary team. I have personally seen and examined this patient on 04/24/2025. Alejandra Wilson MD PhD Transplant Surgery * Celio Espinosa, STOREROOM KEEPER - 04/24/2025 5:56 AM EST RESPIRATORY THERAPY [...] PCO2 40 04/24/2025 PO2ART 107 (H) 04/24/2025 HAF1QVT 23 04/24/2025 BEART -2.0 04/24/2025 CCH2MLS 97.3 04/24/2025 E0PQBPOX 100 04/24/2025 Based on this SBT assessment [...] Admitted to SICU post op. Transferred to [facility] 2 days ago and had a [...] 61 (H) 04/23/2025 PO2ART 122 (H) 04/23/2025 ZED6SWS 19 (L) 04/23/2025 BEART -8.3 (L) 04/23/2025 GMI0GED 96.2 04/23/2025 K5OERAOL 98 04/23/2025 P:F ratio = 203 Cont [...] Acute Care Surgery, and Surgical Critical Care [facility] Academic Office [phone] For Transfers, call [phone] * Sergey Altman MD - 04/23/2025 5:52 AM EDT Transplant Surgery Progress Note Name: Mindy Wade CSN: [id number] Date: 04/23/2025 7:59 AM OR Date: 04/18/2025 [...] 241* Recent Labs 04/22/25 0606 04/22/25 2304 04/23/253 04/23/25 0426 AST 116* -- 63* 59* ALT 144* -- 89* 81* BILITOT 1.9* -- 1.3 1.4 BILIDIRECT 1.11* -- 0.80* 0.92* ALKPHOS 83 -- 63 63 ALBUMIN 3.1* 3.1* < > 2.0* 2.0* 2.2* 2.2* < > = values in this interval not displayed. Recent Labs 04/21/25 0900 04/23/25425 INR 1.4* 1.4* PROTIME 17.8* 18.1* Imaging: [...] and also through CO2 detection. * Maggie Hartmann, OT - 04/22/2025 4:01 PM EDT Occupational Therapy Treatment Name: Mindy Wade : 1990 Attending Physician: Alejandra Wilson MD Admission Diagnosis: Liver transplant recipient (CMS-HCC) [Z94.4] S/P liver transplant (CMS-HCC) [Z94.4] Date: 04/22/2025 Room: 8032/U8032 Reviewed Pertinent hospital course: Yes Hospital Course [...] Good Pt ambulated to bathroom w/ staff research associate and niece present. Pt required CGA for [...] for toileting (goal met and updated 04/22) Grades 1 Thru 5 Teacher Goal : pt will perform IADL task assessment terminal supervisor goal to be met in: 2 weeks [...] Surgery Progress Note Name: Mindy Wade CSN: [id number] Date: 04/22/2025 12:08 PM OR Date: 04/18/2025 [...] STEPHANY : urinating independently Labs: Recent Labs 10/29/25 0133 04/21/25 0900 04/22/25 0606 WBC 10.9* [...] III, MD Transplant Surgery (cell) * Geoff Sarmiento, RD - 04/22/2025 7:18 AM EDT TXP - Follow Up [facility] Medical Nutrition Therapy Follow-Up Diet Order/Nutrition Support: Diet/Nutrition Orders Diet clear liquid Sips Frequency: Effective Now Number of Occurrences: Until Specified Order Questions: Liquid type: Sips Suicide/Behavior Risk Modification? No Pertinent Information: Pt seen for follow-up. present during visit. Continues on clears. Denies n/v. No BM since chemical dependency therapist. Mostly just thirsty. Reviewed post-txp nutrition guidelines [...] I/O: +1.9L net volume. Last BM Date: ([employer]). Admit Weight: 156 lb (70.8 kg) Current Weight: 166 lb 6.4 oz (75.5 kg) Pertinent Labs: Recent Labs 04/19/25 1727 04/20/25 0133 04/21/25 0900 WBC 13.3* 10.9* 6.0 HGB 12.5 11.8 9.7* HCT 37.1 34.9* 28.4* PLT 77* 77* 49* Recent Labs 04/20/25 0133 04/20/25 1809 04/21/25 0900 NA 141 133 136 K 5.2 5.4* 4.1 CL 113* 108 109 CO2 21 19* 21 BUN 37* 57* 64* CREATININE 1.01 1.25 1.40* GLUCOSE 150* 109* 69* CALCIUM 7.9* 7.0* 7.4* MG 2.4 2.6* 2.7* PHOS 4.9* 4.3 3.9 Recent Labs 04/20/25 0133 04/20/25 1809 04/21/25 0900 AST 163* 162* 122* ALT 127* [...] Based on DBW of 68.1 kg Kcals/day: 9652-8314 (25-30 kcals/kg) Protein g/day: 100-140 (1.5-2.0 g/kg) [...] Dietitian - Solid Organ Transplant Contact via [employer] Chat * Tresasamantha Beltran PharmD - 04/21/2025 6:00 PM EDT [...] the Caprini Risk Score of 10 and [facility] transplant protocol, I recommend discharging on heparin 5,000 units subcutaneously q8h (facility) or Eliquis 2.5 mg PO BID (home) for 30 days total. Endof chemoprophylaxis: 05/18/25. Tresa Beltran PharmD Solid Organ Transplant Clinical Stave Saw Operator Contact via [employer] Secure Chat * Mary Timmons, PT - [...] complete a bath soon. Reported pain in LUE, RN notified. PT will reattempt as schedule allows per POC. Thank you. Time Attempted: 1514 * Giovanny Louis MD - 04/21/2025 6:01 AM EDT Transplant Surgery Progress Note Name: Mindy Wade CSN: [id number] Date: 04/21/2025 6:01 AM OR Date: 04/18/2025 [...] independently Labs: Recent Labs 04/19/25 1241 04/19/25 17204/20/25132 WBC 15.6* 13.3* 10.9* HGB 12.9 12.5 11.8 HCT 37.8 37.1 34.9* PLT 95* 77* 77* Recent Labs 04/19/25 1727 04/20/25 01304/20/25 1809 NA 141 141 133 K 5.4* [...] not displayed. Recent Labs 04/19/25 1727 04/20/25 01304/20/25 1809 AST 178* 163* 162* ALT 131* [...] HYDROmorphone OR HYDROmorphone, ondansetron, oxyCODONE, phenoL Assessment/Plan Midny Wade is a 35 y.o. female with [...] Dispo: Floor GIOVANNY LOUIS MD Transplant Surgery [facility] Surgery Resident Cosigned by Alejandra [...] around the patient's cristian and health concerns. Residential Sales Representative can be paged at [phone] if needs arise or would like follow-up, or patient/family requests a visit. Chaplains are available and can be paged 24 hours a day. Chaplain John Rose Th.D., M.Div., M.R.E., [facility]. * Giovanny Louis MD - 04/20/2025 12:42 PM EDT Transplant Surgery Progress Note Name: Mindy Wade CSN: [id number] Date: 04/20/2025 6:05 AM OR Date: 04/18/2025 [...] EXAM: US ABDOMEN LIMITED EXAM: US DUPLEX [id number] COMPLETE INDICATION: Other - Must specify in [...] at 04/19/2025 2:31 PM EDT US Duplex Pvm-Koi-Dejxkxw Comp Result Date: 04/19/2025 EXAM: US ABDOMEN LIMITED EXAM: US DUPLEX ZZQ-[id number]-EALXBSA COMPLETE INDICATION: Other - Must specify in [...] CARIE 5000 units TID, SCD, PPI [facility] GIOVANNY LOUIS MD Transplant Surgery [facility] Surgery Resident Cosigned by Alejandra [...] Wilson MD PhD Transplant Surgery * Gracia Ball, OT - 04/20/2025 10:21 AM EDT Occupational Therapy Initial Assessment Name: Mindy Wade : 1990 Attending Physician: Ludin Jose MD Admission Diagnosis: Liver transplant recipient (CMS-HCC) [Z94.4] Date: 04/20/2025 Room: [place] [address] [address] Reviewed Pertinent hospital course: Yes Hospital Course [...] Independent IADL Assistance: Independent 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 from EOB with AUDIO SPECIALIST, and from commode with RW) Stand to Sit: Contact guard assistance;cues for hand placement Bed to Chair: Minimal assistance;Contact guard assistance (Ziyad with AUDIO SPECIALIST bed>commode; CGA with RW commode >chair) Unable [...] Long-term goal to be met by: 05/04/25 Skilled Nursing Goal : Pt will ambulate 250' independently [...] as needed upon discharge. Time Start Time: 834 Stop Time: 900 Time Calculation (min): 26 [...] comprehensive medication evaluation was conducted through the [facility] electronic medical record review on interprofessional rounds [...] Team. Tresa Diaz, PharmD PGY2 Critical Care Healthcare Economics Manager Preferred contact: [employer] Weekend/On-call pager: [phone] 04/19/2025 12:38 PM Patient Characteristics: Patient Height, [...] (L) 04/19/2025 Lab Results Component Value Date EFZY05P 27.1 (L) 04/11/2025 Current Medications Current Facility-Administered [...] water 25 g Q15 Min PRN Mohan Kahn MD famotidine (PF) 20 mg 2 times [...] 04/20/2025 2:12 PM EDT Pham Gallo PharmD, [facility] Critical Care Clinical Stave Saw Operator Preferred Contact: dateIITiansaging Office: [phone] Pager: [phone] 04/20/25 2:12 PM * Shannan Kumar PharmD [...] Solid Organ Transplant Clinical Specialist Contact via [employer] Preferred * Judith Murcia MD - 04/19/2025 [...] Cardiac Labs: Lab 04/19/25 0633 04/19/25 0227 04/18/25231804/18/25212704/18/25 1859 HSTROP -- 15* -- -- -- [...] Regimen - Last BM: 0 @04/18/2025 1826 ([employer]) Held - Miralax BID - Senna-S BID - Dulcolax AL PRN #Nausea - Zofran PRN #GI Prophylaxis [...] 0659 04/19/25 07 - 04/20/25 0659 Shift 8307-0258 1180-6402 8745-3995 24 Hour Total 7696-7487 7114-5942 4856-4289 24 Hour Total INTAKE P.O. 0 0 [...] in sodium chloride 0.9 % 250 mL Leph6Mdp) 298.3 298.3 Volume (mL) (ciprofloxacin (CIPRO) 400 mg in dextrose 5% 200 mL IVPB) 200 200 400 Volume (mL) (albumin human bottle 5%) 1500 1500 Volume (mL) (AMPicillin 1 g in sodium chloride 0.9% 100 mL IVPB (Rqns9Mzt)) 100 100 200 Volume (mL) (mycophenolate (CELLCEPT) 500 mg in dextrose 5% in water (D5W) 50 mL IVPB) 19.2 30.8 50 Shift Total(mL/kg) 7848.3(110.9) 4567.9(64.6) 906.2(12.8) 42083.4(188.3) OUTPUT Urine(mL/kg/hr) 500(0.9) 550(1) 147(0.3) 1197(0.7) 40 [...] 04/19/2025 0800 Gross per 24 hour Intake 66658.1 ml Output 9687 ml Net 3137.1 ml [...] >90 >90 >90 Lab 04/18/25 2246 04/18/25 185 PH ARTERIAL 7.38 7.40 PCO2 ARTERIAL 38 [...] - TITRATABLE NURSING PROTOCOL (HYPERGLYCEMIA) 0-28 Units/hr Prdkuvjffo42/27/2025 04/19/2025 Admin Instructions: FOR O.R. USE only. [...] in sodium chloride 0.9% 100 mL IVPB (Zxzf8Ocy) 1 g Every 6 hours 04/18/2025 04/20/2025 Admin Instructions: Dosage may need to be adjusted for renal dysfunction. Full dose is 1g IV q6h Use Wjzu8Chz Adapter - Mix Thoroughly Before Administration Notes to Pharmacy: On order selector estimated creatinine clearance is 100.6 mL/min (based [...] in sodium chloride 0.9 % 250 mL Txsi8Rvl (Completed) 20 mg/kg ?? 71.6 kg Once 04/18/2025 04/18/2025 Admin Instructions: Begin infusion 120 minutes prior to incision Use Xviu0Hwp Adapter - Mix Thoroughly Before Administration Route: Intravenous Linked Group 2: Placed in And Linked Group A/P: #Antibiotics - Perioperative Abx: vanc, ampicillin, ceftriaxone, cipro #Immunosuppression Steroid taper Per TXP team NEUROLOGIC Exam: No focal signs, moving all four extremities GCS: [place] Coma Scale Score: 11 (Eye Openin, Best [...] - PT Recs: - OT Recs: - AEROPLANE PILOT Recs: Dispo: Remain in SICU Code Status: [...] PCO2 38 04/18/2025 PO2ART 136 (H) 04/18/2025 GBL9XXZ 23 04/18/2025 BEART -2.3 (L) 04/18/2025 EWL6QZZ 96.6 04/18/2025 Z3TDIGEA 100 04/18/2025 P:F ratio = 340 CARDIOVASCULAR: [...] Acute Care Surgery, and Surgical Critical Care [facility] Academic Office [phone] For Transfers, call [phone] * Giovanny Louis MD - 04/19/2025 6:08 AM EDT Transplant Surgery Progress Note Name: Mindy Wade CSN: [id number] Date: 04/19/2025 6:09 AM OR Date: 04/18/2025 [...] %-100 %] 40 % I/O: Date 04/18/25 0700 - 04/19/25 0659 04/19/25 0700 - 04/20/25 0659 Shift 6948-3139 3222-5609 6419-4682 24 Hour Total 9640-3011 8504-1649 5432-9181 24 Hour Total INTAKE P.O. 0 0 [...] in sodium chloride 0.9 % 250 mL Rdry3Jxr) 298.3 298.3 Volume (mL) (ciprofloxacin (CIPRO) 400 mg in dextrose 5% 200 mL IVPB) 200 200 400 Volume (mL) (albumin human bottle 5%) 1500 1500 Volume (mL) (AMPicillin 1 g in sodium chloride 0.9% 100 mL IVPB (Ejmt4Wlz)) 100 100 200 Volume (mL) (mycophenolate (CELLCEPT) 500 mg in dextrose 5% in water (D5W) 50 mL IVPB) 19.2 30.8 50 Shift Total(mL/kg) 7848.3(110.9) 4567.9(64.6) 751.8(10.6) 48683(186.1) OUTPUT Urine(mL/kg/hr) 500(0.9) 550(1) 117 1167 Urine [...] : ybarra in place Labs: Recent Labs 10/27/25 1352 04/18/25 1410 04/18/25 1700 04/18/25185804/18/252318 WBC [...] 2.8* Recent Labs 04/18/25 1352 04/18/25 1859 10/27/25 2319 INR 1.9* 1.8* 1.8* PROTIME 23.1* 21.5* [...] Dispo: SICU GIOVANNY LOUIS MD Transplant Surgery [facility] Surgery Resident Cosigned by Alejandra [...] Ventura MD - 04/23/2025 5:23 AM EDT [facility] PRE-SEDATION ASSESSMENT, HISTORY & PHYSICAL Date: [...] times a day. naloxone (NARCAN) 4 mg/actuation [place] Apply 1 spray in one nostril if [...] EDT Proceed with LDLT. Ludin Jose MD Densitometer Reader of Transplant Surgery [phone] (m) documented in this encounter Procedure Notes * Alejandra Wilosn MD - 04/23/2025 12:32 PM EDT Patient Name: Mindy Wade Date: 1990 Billing #: [id number] Date of Procedure: 04/23/2025 Diagnosis: GI bleed Procedure: 1. Reopening of recent laparotomy 2. Revision of jejunojejunostomy 3. Gastric lavage Attending surgeons: Surgeons and Role: * Alejandra Wilson MD - Primary * Quan Yates III, MD Office Support Assistant Surgeon(s): Jennifer Hess MD Findings: Normal liver [...] of available help, Dr. Yates served as apartment community assistant manager. Procedure: The patient brought to [...] Quan Rodriguez III, MD Anesthesia: General Staff: Netting Inspector: Viktor Kennedy RN; Mikaela Delgado RN Scrub Person: Jaydon Soto RN Fellow: Jostin Hess MD Estimated Blood Loss: Minimal Specimens: Drains: Drain sub hepatic #1 Abdomen Right;Superior (Active) Site Description Healing 04/23/25 0050 Drain Type Bulb 04/23/25 0050 Drain Status Bulb suction 04/23/2549 Dressing Status Intact 04/23/2549 Output (mL) 100 mL 04/23/2554 Drainage Appearance Serosanguineous 04/23/25 005 Number of days: 5 Drain hilar #2 [...] IUC (Ybarra) Non-latex;Straight-tip 16 Fr. (Removed) Status [place] Drainage 04/19/25799 Collection Container Standard drainage bag [...] Moyer MD - 04/23/2025 6:01 AM EDT [id number] Procedure Date: 04/23/2025 6:01 AM Patient Name: Mindy Wade Date of : 1990 Admit Type: Inpatient Age: 35 Gender: Female Note Status: Finalized Attending MD: Kelsey Moyer , , [id number] Procedure: Small bowel enteroscopy Indications: Melena Patient [...] by the physician, the nurse and the engineering technician parking in the procedure room. Mental Status Examination: [...] the bleed. Procedure Code(s): --- Professional --- 18261, GC, Small intestinal endoscopy, enteroscopy beyond second portion of duodenum, not including ileum; diagnostic, including collection of specimen(s) by brushing or washing, when performed (separate procedure) Diagnosis Code(s): --- Professional --- K92.2, Gastrointestinal hemorrhage, unspecified K92.1, Melena (includes Hematochezia) CPT copyright 2022 [employer]. All rights reserved. The codes documented in this report are preliminary and upon shaker tender review may be revised to meet current compliance requirements. Attending Participation: I was present and participated during the entire procedure from insertion to removal of the endoscope. Kelsey Moyer Kelsey Moyer, 04/23/2025 11:32:48 AM Mike Ventura Mike Ventura, 04/23/2025 7:30:40 AM Total Procedure Duration Time 0 hours 51 minutes 31 seconds Scope In: 6:09:10 AM Scope Out: 7:00:[address] [place] [address], [facility] * Drea Campbell MD - 04/23/2025 4:52 AM EDTAssociated Order(s): Insert Arterial Line Insert Arterial Line Date/Time: 04/23/2025 4:53 AM Performed by: Drea Campbell MD Authorized by: Manuela Lang MD Consent: Consent obtained: Emergent situation [place] protocol: Patient identity confirmed: Hospital-assigned identification number [...] Acute Care Surgery, and Surgical Critical Care [facility] Academic Office [phone] * Manuela Lang MD - 04/23/2025 4:00 [...] Alternatives discussed: No treatment and delayed treatment [place] protocol: Patient identity confirmed: Hospital-assigned identification number [...] Acute Care Surgery, and Surgical Critical Care [facility] Academic Office [phone] * Chava Mcgraw RN - 04/21/2025 8:37 [...] Mcgraw RN Authorized by: Ludin Jose MD [place] Protocol: Verbal consent obtained?: Yes Written consent [...] time out verifies correct patient, procedure, equipment, computer customer support specialist and site/side marked as required: Preparation: Preparation: [...] Name: Mindy Wade Date: 1990 Billing #: [id number] Date of Procedure: 04/18/2025 Diagnosis: Chronic Hepatic Failure without coma Procedure: 1. Back bench preparation right lobe living donor liver 2. Back bench venous extension of right hepatic vein with iliac vein graft 3. Back bench venous anastomosis (V8 to iliac vein graft) Attending surgeons: Quan Yates III, MD - Primary Office Support Assistant Surgeon(s): Shannon Johns MD - Assisting Findings: [...] reconstruction of V8 and RHV) Vein Conduit: [id number] - ABO O Anesthesia: GETA Blood/Fluid Products: [...] donor was ABO O and UNOS ID [id number]. The donor is a is a 53 [...] to implantation in the recipient. A third green party iliac vein graft from donor with UNOS ID [id number] and ABO was utilized as well. Prior to use I confirmed the ABO of the donor and recipient were both O. Patient was induced with Solu-Medrol. Dr. Wilson and I did the living donor hepatecomy. Dr. Joseperformed the living donor liver transplant and I assisted him. I performed the back bench preparation of the liver and given the lack of other qualified and available helped Dr. Johns as assistantsurgeons in this case. Procedure: Back bench preparation [...] this came from donor with UNOS ID [id number] that was ABO O. Next a slit [...] Jose MD - 04/18/2025 5:00 PM EDT [facility] RE[facility] Patient Name: Mindy Wade Date: 1990 Billing #: [id number] Date of Procedure: 04/18/2025 Diagnosis: Chronic Hepatic Failure without coma Procedure: 1. Right lobe living donor liver transplant with edna en y hepaticojejunostomy. Attending surgeons: Surgeons and Role: * Ludin Jose MD - Primary * Quan Yates III, MD - Assisting * Shannon Johns MD - Assisting * Jose Daniel MD - Resident - Assisting * Alejandra Wilson MD - Resident - Observing Office Support Assistant Surgeon(s): Jennifer Hess - Fellow Findings: Right [...] score of 14. An altruistic donor came forwardas a living donor. The donor evaluation yieled a right lobe graft with an estimated weight of 715 gm with an estimated GRWR of 1.04. This donor was ABO O and UNOS ID [id number]. The cadaveric vessels came from UNOS ID [id number] who was also ABO O. The donor is a is a 53 year old healthy donor. The donornorisk factors for blood-borne disease transmission. All donors [...] for HIV, HBV, and HCV infection. If t ransmission occurs, there are effective therapies available. I personally confirmed that the donor ABO was O and the patient was ABO O , which are compatibles blood types, prior to implantation in the recipient. Patient was induced with Solu-Medrol. Dr. Hung did the living donor hepatecomy. Due to the nature of the liver transplant and lack of other qualified and available helped Dr. Yates served as transition assistant surgeon in this case. Procedure: Back [...] Alex Chang, MD Anesthesia: General Endotracheal Staff: Netting Inspector: Aurelio Abarca RN; Mary Fink, RN; Piero Sharpe, RN; Victor Manuel Kevin, KONSTANTIN Relief Scrub: Maynor Whitaker RN Scrub Person: Cari Aguilar Fellow: Jostin Hess MD Float: Rohini Block, KONSTANTIN; Maynor Whitaker RN Resident: Gloria Chen MD; Giovanny Louis MD Estimated Blood Loss: 7300 mL Specimens: Drains: Drain Abdomen Right;Superior (Active) Number of days: 0 Drain Abdomen Right;Superior (Active) Number of days: 0 IUC (Ybarra) Non-latex;Straight-tip 16 Fr. (Active) Number of days: 0 Transplant-Specific Information UNOS ID: [id number] Cross-clamp: 1202 Out of ice: 1303 Reperfusion: 1325 Anatomy Caval: RHV to RHV; venous conduit from HV to cava SPANN: RHA to RHA Biliary: 2 HJ bile anastomosis Flows: SPANN: 85, PI: 1.4 PV: 1.4, PI: 0.3 Drains: CRYTSAL x2: Right lateral subhepatic, right medial hilar/cut [...] times a day. naloxone (NARCAN) 4 mg/actuation [place] Apply 1 spray in one nostril if [...] 98 99 - P:F Ratio: 268 IBW: [place] body weight: 57 kg (125 lb 10.6 [...] baseline or with provocation, shows a very uqxqehdpiu-gu-degi atrial level shunt. There is a shunt [...] 80 76 Lab 04/24/25 0543 04/24/25 0000 04/23/25181004/23/25 1344 04/23/25 1146 PH ARTERIAL 7.37 7.34* [...] Lab 04/24/25 0436 04/24/25 0000 04/23/25 18104/23/25 1130 04/23/25 0831 WBC 9.4 10.5 9.1 [...] in sodium chloride 0.9 % 100 mL Acfm9Weo (Completed) 4.5 g Once 04/23/2025 04/23/2025 Admin Instructions: Use Zlsi5Prg Adapter - Mix Thoroughly Before Administration Route: Intravenous Linked Group 1: Placed in Followed by Linked Group piperacillin-tazobactam (ZOSYN) 4.5 g in sodium chloride 0.9 % 100 mL Tkmk1Gym 4.5 g Every 8 hours 04/23/2025 -- Admin Instructions: Use Zoqd2Cyt Adapter - Mix Thoroughly Before Administration Route: [...] extremities prior to intubation and seadtion GCS: [place] Coma Scale Score: 15 (Eye Openin, Best [...] use of seat during bathing tasks - AEROPLANE PILOT Recs: Dispo: Remain in SICU Code Status: [...] Admitted to SICU post op. Transferred to [facility] 2 days ago and had a [...] PCO2 40 04/24/2025 PO2ART 107 (H) 04/24/2025 BII7IQP 23 04/24/2025 BEART -2.0 04/24/2025 WLE6DOH 97.3 04/24/2025 G4CSDUXG 100 04/24/2025 P:F ratio = 268 Passed [...] Acute Care Surgery, and Surgical Critical Care [facility] Academic Office [phone] For Transfers, call [phone] * Mike Ventura MD - 04/23/2025 4:29 AM EDTAssociated Order(s): IP CONSULT TO GASTROENTEROLOGY [facility] GI CONSULT NOTE Consulted by: Alejandra Wilson [...] times a day. naloxone (NARCAN) 4 mg/actuation [place] Apply 1 spray in one nostril if [...] times a day. naloxone (NARCAN) 4 mg/actuation [place] Apply 1 spray in one nostril if [...] 100 100 - P:F Ratio: 203 IBW: [place] body weight: 57 kg (125 lb 10.6 [...] (36.2 ??C) Heart Rate: [71-116] 116 Resp: [-] 13 BP: (81-137)/(47-88) 81/60 FiO2: [60 %-100 %] 60 % Hemodynamics: No data found. Cardiac Labs: Lab 04/23/25 0426 04/23/25 0223 04/22/25 2304 04/19/25 0837 04/19/25 0633 04/19/25226 HSTROP -- -- -- [...] baseline or with provocation, shows a very izvydezywr-sz-nimf atrial level shunt. There is a shunt [...] IV infusion, Last Rate: 50 mcg/hr (04/23/25 032) propofol, Last Rate: 20 mcg/kg/min (04/23/25 031) sodium chloride 0.9 % sodium chloride 0.9 % sodium chloride 0.9 % sodium chloride 0.9 % sodium chloride 0.9 % Labs: Lab 04/23/2522204/22/25230304/22/25 0606 04/21/25 0900 04/20/25 1809 CO2 22 [...] - No active issues HEMATOLOGIC Labs: Lab 04/23/2542504/23/2522204/23/25 0003 04/22/25 2304 04/22/25 0606 WBC 11.4* [...] extremities prior to intubation and seadtion GCS: [place] Coma Scale Score: 15 (Eye Openin, Best Verbal Response: 5, Best Motor Response: 6) No data found. A/P: #Sedation/Analgesia - Propofol gtt - [facility]: Intubated and sedation; unable to [...] use of seat during bathing tasks - AEROPLANE PILOT Recs: Dispo: Remain in SICU Code Status: [...] PCO2 38 04/18/2025 PO2ART 136 (H) 04/18/2025 JJK0MOD 23 04/18/2025 BEART -2.3 (L) 04/18/2025 QFS9SLT 96.6 04/18/2025 M1BABKCQ 100 04/18/2025 P:F ratio = No PaO2 [...] Acute Care Surgery, and Surgical Critical Care [facility] Academic Office [phone] For Transfers, call [phone] * Chava Mcgraw RN - 04/21/2025 8:38 AM EDTAssociated Order(s): IP CONSULT TO PICC TEAM Images from the original note were not included. ALEJANDRO PICC placed in right brachial vein. Verified with ECG and approved for immediate use Length: 35CM/0 * Cleopatra Chung, [employer] SYSTEM[employer] OPERATIONS SUPERINTENDENT, HUB CUTTER APPRENTICE - 04/19/2025 8:31 AM EDT HEALTH Care Management/Social Work Assessment Patient Information Patient Name: Mindy Wade Hospital Day: 1 Inpatient/Observation: Inpatient Admit Date: 04/18/2025 Admission Diagnosis: Liver transplant recipient (CMS-HCC) [Z94.4] Attending provider: Ludin Jose MD PCP: GEOFF GRAVES, DO Home Pharmacy: [facility] [address] [facility] [address] [id number] - [place] [address] [address] [address] [place] [address] [address] [place] [address] [address] [facility] [place] [address] [facility] [address] [facility] [place], [place] [address] [facility] [address] [place] [address] Pertinent Medications Anticoagulation therapy: No New Diabetic: [...] Substance Abuse Date: 07/24/23 Treatment History: Outpatient [facility] Do you need Substance Abuse Treatment Resources?: [...] Was any abuse reported by patient?: No [place] Status & Connection to [facility] Services Status [...] Information SW consult request reviewed and completed. [facility] Pham Chung verified demographic and emergency contact [...] a . Patient reported she is receiving correction disability. Patient does not report financial concerns/difficulties [...] since July 2023. Patient has been to [facility] for substance use treatment. Patient does not use home oxygen, DME use, or dialysis. Patient has no history of fci facility or inpatient rehabilitation facility admissions. Patient has no history of home health care services. PCP: Geoff Graves SWCM confirmed with patient/family that there are no additional SWCM needs at this time. SW provided the family with SW contact [phone]. Patient/Family aware and taking part in the [...] are disclosed as appropriate. ASIM ENRIQUEZ, AJ [phone] * Geoff Sarmiento, JACKSON - 04/19/2025 7:35 AM EDTAssociated Order(s): IP CONSULT TO NUTRITION SERVICES TXP - Initial [facility] Medical Nutrition Therapy Reason(s) for [...] I/O: +3.6L net volume. 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 Admit Weight: 156 lb (70.8 kg) Current [...] this interval not displayed. Recent Labs 04/18/25 18504/18/25221104/18/252318 NA 139 139 139 K 3.6 3.6 [...] 1352 04/18/25 1405 04/18/25 1654 04/18/25 1859 04/18/25 2319 INR 1.9* < > 1.6* 1.8* 1.8* PROTIME 23.1* -- -- 21.5* 21.8* < > = values in this interval not displayed. No results for input(s): HGBA1C in the last 72 hours. Past 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: Diagnosis Date Abdominal hernia 02/21/2023 Alcoholic hepatitis ([facility]-HCC) Anxiety Ascites Chronic diarrhea 08/21/2022 Cirrhosis (CMS-HCC) Cystitis Depression Hepatitis C Past Surgical History: Procedure Laterality Date APPENDECTOMY CYST REMOVAL Right had a cystic lesion under right breast with hematoma and cyst per patient which was removed ESOPHAGOGASTRODUODENOSCOPY N/A 07/28/2024 Procedure: EGD; Surgeon: Mario Ramirez MD; Location: ENDOSCOPY; Service: Gastroenterology; Laterality: N/A; LIVER TRANSPLANTATION N/A 04/18/2025 Procedure: LIVING DONOR LIVER TRANSPLANT; Surgeon: Ludin Jsoe MD; Location: OR; Service: Transplant; Laterality: N/A; [...] Based on DBW of 68.1 kg Kcals/day: 6800-7426 (25-30 kcals/kg) Protein g/day: 100-140 (1.5-2.0 g/kg) [...] Dietitian - Solid Organ Transplant Contact via [employer] Chat * Judith Murcia MD - 04/18/2025 [...] 100 100 - P:F Ratio: 340 IBW: [place] body weight: 57 kg (125 lb 10.6 [...] Hemodynamics: No data found. Cardiac Labs: Lab 04/18/25212704/18/25185804/18/25 1700 04/18/25 1600 04/18/25 1506 POC LACTATE [...] Regimen - Last BM: 0 @04/18/2025 1826 ([employer]NS[employer]) Held until taking PO - Miralax BID - Senna-S BID - Dulcolax AL PRN #Nausea - Zofran PRN #GI Prophylaxis [...] Weight: 156 lb (70.8 kg) Intake/Output: Date 04/17/250 - 04/18/25 0659(Not Admitted) 04/18/25 0700 - 04/19/25 0659 Shift 1422-2394 24 Hour Total 9187-4697 6147-7195 3330-0822 24 Hour Total INTAKE P.O. 0 0 [...] in sodium chloride 0.9 % 250 mL Yrqk4Ijp) 298.3 298.3 Volume (mL) (ciprofloxacin (CIPRO) 400 mg in dextrose 5% 200 mL IVPB) 200 200 400 Volume (mL) (albumin human bottle 5%) 1500 1500 Volume (mL) (AMPicillin 1 g in sodium chloride 0.9% 100 mL IVPB (Goqq7Yee)) 100 100 Volume (mL) (mycophenolate (CELLCEPT) 500 mg in dextrose 5% in water (D5W) 50 mL IVPB) 19.2 19.2 Shift Total(mL/kg) 7848.3(110.9) 4567.9(64.6) 66820.3(175.5) OUTPUT Urine(mL/kg/hr) 500(0.9) 550(1) 1050 Urine 500 [...] 70.8 Intake/Output Summary (Last 24 hours) at 04/18/2025 2305 Last data filed at 04/18/2025 2200 Gross per 24 hour Intake 07474.27 ml Output 9175 ml Net 3241.27 ml [...] No active issues HEMATOLOGIC Labs: Lab 04/18/25 18504/18/25 1700 04/18/25 1600 04/18/25 1506 04/18/25 [...] - TITRATABLE NURSING PROTOCOL (HYPERGLYCEMIA) 0-28 Units/hr Efnfdlcqmg52/27/2025 04/19/2025 Admin Instructions: FOR O.R. USE only. [...] in sodium chloride 0.9% 100 mL IVPB (Hpgc2Luu) 1 g Every 6 hours 04/18/2025 04/20/2025 Admin Instructions: Dosage may need to be adjusted for renal dysfunction. Full dose is 1g IV q6h Use Cjeo0Gte Adapter - Mix Thoroughly Before Administration Notes to Pharmacy: On order selector estimated creatinine clearance is 100.6 mL/min (based [...] in sodium chloride 0.9 % 250 mL Vewi4Blv (Completed) 20 mg/kg ?? 71.6 kg Once 04/18/2025 04/18/2025 Admin Instructions: Begin infusion 120 minutes prior to incision Use Gpxx1Ldz Adapter - Mix Thoroughly Before Administration Route: Intravenous Linked Group 2: Placed in And Linked Group A/P: #Antibiotics - Perioperative Abx: vanc, ampicillin, ceftriaxone, cipro #Immunosuppression Steroid taper Per TXP team NEUROLOGIC Exam: No focal signs, moving all four extremities GCS: [place] Coma Scale Score: 11 (Eye Openin, Best Verbal Response: 1 (ett), Best Motor Response: 6) No data found. A/P: #Sedation/Analgesia - Sedation weaned - Tylenol scheduled, Dilaudid prn PSYCHIATRIC Exam: Not agitated CAM: Overall CAM-ICU : ([facility]) RASS: Gomez Agitation Sedation Scale: -2 A/P: [...] - PT Recs: - OT Recs: - AEROPLANE PILOT Recs: Dispo: Remain in SICU Code Status: [...] 33 (L) 04/18/2025 PO2ART 158 (H) 04/18/2025 LQT5GLH 22 04/18/2025 BEART -3.6 (L) 04/18/2025 GOK3EGZ 95.1 04/18/2025 Q6PCFDHM 100 04/18/2025 P:F ratio = 316 CARDIOVASCULAR: [...] Acute Care Surgery, and Surgical Critical Care [facility] Academic Office [phone] For Transfers, call [phone] documented in this encounter Nursing Notes * [...] KONSTANTIN Alston. Dose of IV Cellcept for 2300 given [...] bed. All questions answered. Notified pt's contact lens inspector of transfer. Yaima Cohen RN * Estela [...] with lock intact, to Alma the OR Warrant Server at 21:30. documented in this encounter Miscellaneous Notes * Home Health Care Note - Giovanny Louis MD - 05/03/2025 2:05 PM EST Images from the original note were not included. REFERRAL FOR HOME HEALTH SERVICES FORM Patient name: Mindy Wade Patient : 1990 Age: 35 y.o. Gender: female SSN: [id number] [address]: [address] [place], [place] [address] Phone number: [phone] Patient emergency contact: Extended Emergency Contact Information Primary Emergency Contact: KHLOE WADE Mobile Relation: Spouse Date of admission: 04/18/2025 Date of discharge: 05/03/2025 Attending provider: Jose Daniel MD Primary care physician: GEOFF GRAVES DO Code status: Full Code Allergies: Allergies[1] Insurance Information Insurance Information AETNA MANAGED MEDICARE/AETNA MEDICARE Phone: -- Subscriber: Mnidy Wade Subscriber#: [id number] Group#: [id number] Precert#: [id number] Authorization#: [id number] Effective Date: -- Diagnoses Present on Admission [...] 120 capsule Refills: 5 naloxone 4 mg/actuation [place] Commonly known as: NARCAN Apply 1 spray [...] Your Medications These medications were sent to [facility] [place] [address] Hours: Friday - Friday: 8:00AM - 6:00PM acetaminophen 325 MG tablet aspirin 81 MG chewable tablet calcium-vitamin D 500 mg-5 mcg (200 unit) per tablet fluconazole 200 MG tablet lidocaine 5 % melatonin 3 mg Tab methocarbamoL 500 MG tablet mycophenolate 250 mg capsule naloxone 4 mg/actuation [place] oxyCODONE 5 MG immediate release tablet oxyCODONE [...] Fax results to liver transplant clinic at [phone]. NURSE VISIT: Please check vitals and assess/monitor [...] % Equipment/Supplies No current labs Ordering Physician: NIKITA [LUDIN JOSE MD] Physician Certification Further, I certify that my clinical findings support that this patient is homebound (i.e. absences from home require considerable and taxing effort and are for medical reasons or alevism services or infrequently or short duration when for other reasons) due to deconditioning it would be a taxing effort to receive outpatient services. My signature below is to certify that this patient is under my care and that I, or nurse practitioner, or a physician transition assistant working with me, had a xovn-dw-lrwn encounter with this is patient on: 05/03/2025 Follow-up Appointments and Post Hospital Discharge Physician Name Future Appointments Date Time Provider Department Center 05/10/2025 8:20 AM LTRA SURGERY, [facility] LTRA [facility] [address] [facility] [address] Discharging Physician Signature and Credentials Discharging Physician: Electronically signed by GIOVANNY LOUIS MD 05/03/2025, 2:05 PM Physician to follow up Information PCP: GEOFF GRAVES DO PCP address: [address] [place] [address] / [place] [id number] PCP phone number: [phone] PCP fax number: [phone] Follow-up: [facility] and their phone / fax is: [phone] / [phone] Stained Glass Painter and Credentials Provider/Company Name and Contact Number: [employer] Name and Telephone Number: [1] No Known [...] Asya Curry - 05/02/2025 1:33 PM EST [facility] Case Management/Social Work Department Progress Note [...] C. PCP: GEOFF GRAVES, DO Home Pharmacy: [facility] [place] [address] [facility] [address] [id number] - [place], [place] - [address] [address] [address] [place] [address] [address] [address] [address] [facility] [place] [place] [address] [facility] - [place], [place] - [address] [facility] [address] [place] [address] Medical Insurance Coverage: Payor: AETNA MANAGED MEDICARE / Plan: AETNA MEDICARE / Product Type: *No Product type* / Other Pertinent Information SW received update from medical team, completed chart review. Per team, pt is not medically ready for discharge. Patient accepted with [facility] ([phone]) for PT/OT, SN, and 2x weekly labs. Patient will need RW at discharge, Philip unable to cover due to insurance. Team made aware. Discharge Plan Anticipated discharge plan: Home with [facility] Anticipated discharge date: 05/03 CM/SW will continue to follow and remain available for discharge planning needs. ASIM Jackson, HUB CUTTER APPRENTICE C Iron Worker/Process Control Supervisor (Float) Can be reached by BrightTALK [phone] or [employer] secure chat * Plan of Care - [...] Silveira RN - 04/30/2025 12:26 PM EST [facility] Case Management/Social Work Department Progress Note [...] Hepatitis C. PCP: GEOFF GRAVES, Home Pharmacy: [facility] [address] [facility] [address] [id number] - [place], [place] - [address] [address] [address] [facility] [address] [address] [place] [address] [facility] 591 - [place], [place] - [address] [facility] [address] [place] [address] Medical Insurance Coverage: Payor: AETNA MANAGED MEDICARE / Plan: AETNA MEDICARE / Product Type: *No Product type* / Other Pertinent Information Per SENIOR ADMINISTRATIVE ASSISTANT, Pt is not medically ready fro discharge at this time. Pt still has high drain output at this time. Team will continue with diuresis with albumin and assess ascites production. RNCM/SW will continue to follow. Discharge Plan Anticipated discharge plan: Team will continue to monitor Pts progress towards discharge to home with [facility]. Anticipated discharge date: ~5 days [...] Asya Curry - 04/29/2025 12:12 PM EST [facility] Case Management/Social Work Department Progress Note [...] C. PCP: GEOFF GRAVES DO Home Pharmacy: [facility] [place] [address] [facility] [address] [id number] - [place], [place] [address] [address] [address] [facility] [place] [address] [facility] 559 - [place], [place] - [address] [facility] [address] [address] Medical Insurance Coverage: Payor: AETNA MANAGED MEDICARE / Plan: AETNA MEDICARE / Product Type: *No Product type* / Other Pertinent Information SW received update from medical team, completed chart review. Per team, pt is not medically ready for discharge. Patient accepted with [facility] ([phone]) for PT/OT, SN, and 2x weekly labs. Patient will need RW at discharge, Philip unable to cover due to insurance. Team made aware. Discharge Plan Anticipated discharge plan: Home with [facility] Anticipated discharge date: 05/01 CM/SW will continue to follow and remain available for discharge planning needs. Asya Curry, SPACE SYSTEMS OPERATIONS SUPERINTENDENT, HUB CUTTER APPRENTICE C Iron Worker/Process Control Supervisor (Deniz) Can be reached by BrightTALK [phone] or [employer] secure chat * Plan of Care - [...] Macias RN - 04/28/2025 12:25 PM EST [facility] Case Management/Social Work Department Progress Note [...] diarrhea (08/21/2022), Cirrhosis (CMS-HCC), Cystitis, Depression, and HepatitisC. PCP: GEOFF GRAVES, DO Home Pharmacy: [facility] [address] [facility] [address] [id number] [place] [address] [facility] [address] [facility] [address] [address] [place] [address] [facility] 591 - [place] [address] [facility] [address] [place] [address] Medical Insurance Coverage: Payor: AETNA MANAGED MEDICARE / Plan: AETNA MEDICARE / Product Type: *No Product type* / Other Pertinent Information RN CM attended rounds and received an update from [...] sent and pt has been accepted by [facility] [phone]. Discharge Plan Anticipated discharge plan: [facility] vs Out pt Rehab Anticipated discharge date: 05/03 CM/SW will continue to follow and remain available for discharge planning needs. Alma LUNAN RN Care Management Services Float [phone] * Plan of Care - Shaneka Gerber [...] Johnson RN - 04/27/2025 11:23 AM EST [facility] Case Management/Social Work Department Progress Note [...] C. PCP: GEOFF GRAVES DO Home Pharmacy: [facility] [place] [address] [place] [address] [facility][id number] - [place], [place] - [address] [facility] [address] [facility] [address] [facility] [address] [place] [address] [facility] 861 - [place] - [address] [facility] 8[address] [facility] [place] [address] Medical Insurance Coverage: Payor: AETNA MANAGED MEDICARE [...] drawn at facility. UPDATE: Call received from [facility] they are unable to accept. Discharge needs [...] Enriquez, AJ - 04/26/2025 3:19 PM EST Health Case [...] and Hepatitis C. PCP: GEOFF GRAVES DO [place] Pharmacy: [facility] [address] [facility] [address] [facility][id number] - [place], [place] - [address] [facility] [address] [facility] [address] [address] [place] [address] [facility] 591 - [place] - [address] [facility] [address] [place] [address] Medical Insurance Coverage: Payor: AETNA MANAGED MEDICARE / Plan: AETNA MEDICARE / Product Type: *No Product type* / Other Pertinent Information SWCM attended multidisciplinary rounds with the Transplant Team. SWCM reviewed patient's chart. Perteam, patient is not medically ready to discharge. [facility] sent IPR list via Repisodic to patient [...] for discharge planning needs. ASIM ENRIQUEZ, AJ [phone] * Plan of Care - Sergey Rodas [...] of medical procedures, or protection of medical technologist chief access. 04/25/20251440 by Bita Lo RN Outcome: Progressing 04/25/20251440 by Bita Lo RN Outcome: Progressing Problem: Non-violent, vfe-slwc-lpxhfglyczr restraints Description: Less restrictive alternative interventions will [...] Bita Lo RN Outcome: Progressing Problem: Non-violent, eay-qola-cbprepbscsf restraints Description: Less restrictive alternative interventions will [...] Enriquez, AJ - 04/25/2025 1:17 PM EST [facility] Case Management/Social Work Department Progress Note Patient Information Patient Name: Minyd Wade Hospital day: 7 Inpatient/Observation: Inpatient Level of Care: Transplant/off floor Admit date: 04/18/2025 Admission diagnosis: Liver transplant recipient (CMS-HCC) [Z94.4] S/P liver transplant (CMS-HCC) [Z94.4] End stage liver disease (CMS-HCC) [K72.10] PMH: has a past medical history of Abdominal hernia (02/21/2023), Alcoholic hepatitis (CMS-HCC), Anxiety, Ascites, Chronic diarrhea (08/21/2022), Cirrhosis (CMS-HCC), Cystitis, Depression, and Hepatitis C. PCP: GEOFF GRAVES DO Home Pharmacy: [facility] [address] [place] [address] [facility][id number] - [place], [place] - [address] [facility] [address] [address] [address] [address] [place] [address] [facility] 551 - [place] - [address] [facility] [address] [place] [address] Medical Insurance Coverage: Payor: AETNA MANAGED MEDICARE / Plan: AETNA MEDICARE / Product Type: *No Product type* / Other Pertinent Information ORALIACM attended multidisciplinary rounds with the Transplant Team. SWCM reviewed patient's chart. Perteam, patient is not medically ready to discharge. Patient is set up with [facility] [phone] for PT/OT-SN-2x weekly labs. Discharge Plan Anticipated discharge plan: Home w [facility] Anticipated discharge date: 04/29 CM/SW will continue to follow and remain available for discharge planning needs. ASIM ENRIQUEZ, AJ [phone] * Plan of Care - Jaydon Brandt [...] Admitted to SICU post op. Transferred to [facility] 2 days ago and had a [...] PCO2 40 04/24/2025 PO2ART 107 (H) 04/24/2025 GAD3BUO 23 04/24/2025 BEART -2.0 04/24/2025 UBT1AQE 97.3 04/24/2025 V8HKXWVM 100 04/24/2025 P:F ratio = 268 Passed [...] Acute Care Surgery, and Surgical Critical Care [facility] Academic Office [phone] For Transfers, call [phone] * Plan of Care - Elza Ramírez RN - 04/23/2025 8:00 AM EDT Patient in bilateral soft wrist restraints to maintain patient safety and protect medical devices. Will continue to monitor and reassess need for restraints. See restraint flowsheet for further documentation. Problem: Non-violent, lze-ytmr-kufzexjpfdz restraints Description: Less restrictive alternative interventions will [...] of medical procedures, or protection of medical technologist chief access. Outcome: Progressing * Plan of Care [...] Enriquez, AJ - 04/22/2025 2:03 PM EDT [facility] Case Management/Social Work Department Progress Note [...] C. PCP: GEOFF GRAVES DO Home Pharmacy: [facility] [address] [facility] [address] [id number] - [place] - [address] [facility] [address] [facility] [address] [address] [address] [place] [address] [facility] 474 - [place] - [address] [address] Medical Insurance Coverage: Payor: AETNA MANAGED MEDICARE [...] at home. Patient is set up with [facility] [phone] for PT/OT-SN-2x weekly labs. Discharge Plan Anticipated discharge plan: Home [facility] Anticipated discharge date: 04/25 CM/SW will continue to follow and remain available for discharge planning needs. ASIM ENRIQUEZ, AJ [phone] * Plan of Care - Marilee Ramsey [...] of pocket expense of $75.00. Shelly Vick Process Control Supervisor Office Support Assistant Care Management Services [phone] * Care Coordination - ASIM Enriquez, HUB CUTTER APPRENTICE - 04/21/2025 11:42 AM EDT Health Case Management/Social Work Department Progress Note Patient Information Patient Name: Mindy Wade Hospital day: 3 Inpatient/Observation: Inpatient Level of Care: Transplant/floor Admit date: 04/18/2025 Admission diagnosis: Liver transplant recipient (CMS-HCC) [Z94.4] S/P liver transplant (CMS-HCC) [Z94.4] PMH: has a past medical history of Abdominal hernia (02/21/2023), Alcoholic hepatitis (CMS-HCC), Anxiety, Ascites, Chronic diarrhea (08/21/2022), Cirrhosis ([facility]-HCC), Cystitis, Depression, and Hepatitis C. PCP: GEOFF GRAVES DO Home Pharmacy: [facility] [address] [facility] [address] [facility][id number] [facility] [address] [address] [address] [facility] [address] [facility] [address] [place] [address] [facility] 410 - [place], [place] - [address] [address] Medical Insurance Coverage: Payor: AETNA MANAGED MEDICARE / Plan: AETNA MEDICARE / Product Type: *No Product type* / Other Pertinent Information SWCM attended multidisciplinary rounds with the Transplant Team. SWCM reviewed patient's chart. Perteam, patient is not medically ready to discharge. Patient is set up with [facility] [phone] for PT/OT-SN-2x weekly lab draws. DME-tub transfer bench-is not covered by insurance. Discharge Plan Anticipated discharge plan: Home w [facility] Anticipated discharge date: 04/23 CM/SW will continue to follow and remain available for discharge planning needs. ASIM ENRIQUEZ, HUB CUTTER APPRENTICE [phone] * Care Coordination - Krys Vick - 04/20/2025 3:10 PM EDT CCA was advised patient require [facility] for PT/OT-SN-2x weekly labs for discharge. [facility] sent referrals, awaiting response. [facility] will follow. [facility] [phone] accepted patient for home pt/ot/sn. -this has been communicated to the team. Shelly Vick Process Control Supervisor Office Support Assistant Care Management Services [phone] * Plan of Care - Marylu Haddad [...] - 04/19/2025 1:01 AM EDT Problem: Non-violent, bqk-qpsd-arrhcohcodw restraints Description: Less restrictive alternative interventions will [...] with patient, frequent reorientation, or repositioning. 04/19/2025 0101 by Enedina Spear RN Outcome: Completed 04/19/2025 010 by Enedina Spear RN Outcome: Progressing Problem: Non-violent restraint safety Goal: Patient will be free from injury during restraint period Description: Assess and monitor for unsafe behaviors that can include unintentional harm of self orothers, risk for joint dislocation related to post- operative status, risks for potential nutrition/hydration issues related to removing/tampering with medical equipment, protection of medical procedures, or protection of medical technologist chief access. 04/19/2025 010 by Enedina Spear RN Outcome: Completed 04/19/202599 by Enedina Spear RN Outcome: Progressing * Plan of Care - Enedina Spear RN - 04/18/2025 8:00 PM EDT Problem: High Fall Risk Precautions Goal: High Fall Risk Precautions Outcome: Progressing Problem: Non-violent, mkr-onry-njmgqtwqpoj restraints Description: Less restrictive alternative interventions will [...] of medical procedures, or protection of medical technologist chief access. Outcome: Progressing Patient in bilateral locked [...] Associated Diagnosis Comments PERFUSION RECORD - SCAN 05/21/20 4:02 PM EST EKG - SCAN 05/04/2025 [...] Routine 04/29/2025 11:54 AM EST US DUPLEX BBT-WDBOGW-YFHWDNC COMPLETE STAT 04/29/2025 11:18 AM EST US ABDOMEN LIMITED STAT 04/29/2025 11 :18 AM EST ECHO COMPLETE STAT 04/29/2025 10:17 [...] PM EST CORNELIUS RHYTHM STRIP - SCAN 04/27/20 7:26 PM EST ECG 12-LEAD (MUSE) Routine [...] AM EST CALCIUM FREE, SERUM Routine 04/26/2025 1 2:27 AM EST POC GLU MONITORING DEVICE Routine [...] Routine 04/25/2025 11:34 AM EST US DUPLEX YPA-BERURZ-RMBAVBI COMPLETE STAT 04/25/2025 10:36 AM EST US ABDOMEN LIMITED STAT 04/25/2025 10 :36 AM EST FREE CALCIUM, WHOLE BLOOD Routine [...] PM EST BLOOD GAS, ARTERIAL STAT 04/24/2025 1 2:29 PM EST POC GLU MONITORING DEVICE Routine 04/24/2025 12:25 PM EST XR PORTABLE CHEST STAT 04/24/2025 8:5 2 AM EST TACROLIMUS LEVEL Timed 04/24/2025 7:57 AM EST PREPARE PLATELETS, LEUKOREDUCED STAT 04/24/2025 6:15 AM EST PREPARE FRESH FROZEN PLASMA STAT 04/24/2025 6:15 AM EST PREPARE CRYOPRECIPITATE STAT 04/24/20 6:15 AM EST PREPARE CRYOPRECIPITATE STAT 04/24/20 6:15 AM EST PREPARE RBC, LEUKOREDUCED STAT [...] AM EDT BLOOD GAS, ARTERIAL STAT 04/24/2025 1 2:00 AM EDT TEG-BYPASS/ECMO/LIVER HN (FACTOR FUNCTION, PLATELET/FIBRIN [...] Routine 04/23/2025 6:09 PM EDT US DUPLEX CCF-[id number]-[id number] COMPLETE STAT 04/23/2025 2:12 PM EDT US ABDOMEN LIMITED STAT 04/23/2025 2: 12 PM EDT PROTIME-INR STAT 04/23/2025 1:44 PM EDT BLOOD GAS, ARTERIAL STAT 04/23/2025 1 :44 PM EDT XR PORTABLE CHEST STAT 04/23/2025 11: 46 AM EDT TEG-BYPASS/ECMO/LIVER HN (FACTOR FUNCTION, PLATELET/FIBRIN CLOT STRENGTH W/CLOT BREAKDOWN, HEPARINASE IN ALL CHANNELS) STAT 04/23/2025 11:46 AM EDT RENAL FUNCTION PANEL W/EGFR Add-On 04/23/2025 11:46 AM EDT FREE CALCIUM, WHOLE BLOOD STAT 04/23/2025 11:46 AM EDT MAGNESIUM Routine 04/23/2025 11:46 AM EDT BLOOD GAS, ARTERIAL STAT 04/23/2025 1 1:46 AM EDT HEPATIC FUNCTION PANEL STAT 11:30 [...] :45 AM EDT SMALL BOWEL ENTEROSCOPY Routine 04/23/20 6:01 AM EDT PREPARE RBC, LEUKOREDUCED Routine [...] 12:31 PM EDT OSMOLALITY, URINE Routine 04/21/2025 12: 31 PM EDT CREATININE, URINE, RANDOM Routine 04/21/2025 12:31 PM EDT US DUPLEX VHG-RJCLCD-LITRVLY COMPLETE STAT 04/21/2025 9:47 AM EDT US ABDOMEN LIMITED STAT 04/21/2025 9 :47 AM EDT HEPATIC FUNCTION PANEL Routine 9:00 [...] Routine 04/19/2025 12:37 PM EDT US DUPLEX KNE-EQCUQC-UJHUBKO COMPLETE STAT 04/19/2025 11:03 AM EDT US ABDOMEN LIMITED STAT 04/19/2025 11 :03 AM EDT LACTIC ACID STAT 04/19/2025 8:37 [...] 04/19/2025 6:16 AM EDT PREPARE CRYOPRECIPITATE Routine 04/19/20 6:16 AM EDT PREPARE FRESH FROZEN PLASMA [...] PM EDT BLOOD GAS, ARTERIAL STAT 04/18/2025 1 0:46 PM EDT RENAL FUNCTION PANEL W/EGFR STAT [...] EDT POCT CALCIUM, TOTAL Routine 04/18/2025 1 2:56 PM EDT POCT GLUCOSE Routine 04/18/2025 12:56 [...] EDT POCT CALCIUM, TOTAL Routine 04/18/2025 1 2:11 PM EDT POCT GLUCOSE Routine 04/18/2025 12:11 [...] AM EDT POCT CALCIUM, TOTAL Routine 04/18/2025 1 1:16 AM EDT POCT GLUCOSE Routine 04/18/2025 11:16 [...] AM EDT POCT CALCIUM, TOTAL Routine 04/18/2025 1 1:13 AM EDT POCT GLUCOSE Routine 04/18/2025 11:13 [...] AM EDT POCT CALCIUM, TOTAL Routine 04/18/2025 1 0:17 AM EDT POCT GLUCOSE Routine 04/18/2025 10:17 [...] chronic liver disease SURGICAL PATHOLOGY EXAM Routine 04/18/20 12:00 AM EDT documented in this encounter Results * Perfusion Record - scan (05/21/2025 4:02 PM EST) [facility] - NO RESULTS Final Res ult * EKG - scan (05/04/2025 7:57 AM EST) [facility] - NO RESULTS Final Res ult * Blood Transfusion - scan (05/04/2025 7:49 AM EST) us Scanning [facility] SCAN DOCS - NO RESULTS Final Res ult * Prepare RBC, leukoreduced, 1 Units (05/04/2025 6:15 AM EST) Product Code [id number] HCLL Unit Number [id number] HCLL Dispense Status Presumed Transfused_PT HCLL Blood Expiration Date [id number] HCLL Coding System [id number] HCLL Blood Bank Product us Gloria Chen [...] - 100 mg/dL 05/03/2025 12:18 PM EST [facility] Blood 05/03/2025 12:1 7 PM EST 05/03/2025 12:18 PM EST us Ludin Jose MD POINT OF CARE TEST ORDERABLES Fi nal Result Performing Organization Address [facility] Co de Phone Number [facility] [address] * Antibody Screen (05/03/2025 9:05 AM EST) Antibody Screen Negative 05/03/2025 10:12 AM EST [facility] Blood 05/03/2025 9:05 AM EST 05/03/2025 9:16 AM EST Narrative HEALTH LAB - 05/03/2025 10:29 AM EST Testing performed by [facility] Transfusion Service us Gloria Chen MD BLOOD BANK TEST ORDERABLES Final Result Performing Organization Address City/[facility]/ZIP Co de Phone Number [facility] [address] * ABO/Rh (05/03/2025 9:05 AM EST) ABO Grouping O 05/03/2025 9:58 AM EST [facility] Rh Type Positive 05/03/2025 9:58 AM EST [facility] Blood 05/03/2025 9:05 AM EST 05/03/2025 9:16 AM EST Gloria Chen MD BLOOD BANK TEST ORDERABLES Final Result [facility] [address] * POC Glucose Monitoring Device (05/03/2025 7:52 AM EST) Pathologist [facility] POC Glucose Monitoring Device 99 70 - 100 mg/dL 05/03/2025 7:53 AM EST [facility] Blood 05/03/2025 7:52 AM EST 05/03/2025 7:53 AM EST Ludin Jose MD POINT OF CARE TEST ORDERABLES Fi nal Result Performing Organization Address City/[facility] Co de Phone Number [facility] [address] * (ABNORMAL) Renal Function Panel w/EGFR (05/03/2025 5:46 AM EST) Pathologist [facility] Sodium 135 133 - 146 mmol/L 05/03/2025 6:38 AM EST [facility] Potassium 4.3 3.5 - 5.3 mmol/L 05/03/2025 6:38 AM EST [facility] Chloride 103 98 - 110 mmol/L 05/03/2025 6:38 AM EST [facility] CO2 25 21 - 33 mmol/L 05/03/2025 6:38 AM EST [facility] Comment:High lactate dehydro genase concentrations in patient samples may cause falsely increased bicarbonate results. If markedly elevated LDH is observed or suspected, please assess results in conjunction with patient`s clinical presentation. In cases of discrepant results, consider evaluating CO2 in with a blood gas order. Anion Gap 7 3 - 16 mmol/L 05/03/2025 6:38 AM EST [facility] BUN 37(H) 7 - 25 mg/dL 05/03/2025 6:38 AM EST [facility] Creatinine 1.16 0.60 - 1.30 mg/dL 05/03/2025 6:38 AM EST [facility] Glucose 100 70 - 100 mg/dL 05/03/2025 6:38 AM EST [facility] Calcium 8.3(L) 8.6 - 10.3 mg/dL 05/03/2025 6:38 AM EST [facility] Phosphorus 2.8 2.1 - 4.7 mg/dL 05/03/2025 6:38 AM EST [facility] Albumin 3.5 3.5 - 5.7 g/dL 05/03/2025 6:38 AM EST [facility] Osmolality, Calculated 289 278 - 305 mOsm/kg 05/03/2025 6:38 AM EST [facility] EGFR 63 05/03/2025 6:38 AM EST [facility] Comment:As of 2021, the estimated [...] CRUZ LAB BLOOD ORDERABLES Final Re sult [facility] [address] [place] [address], [facility] * Magnesium (05/03/2025 5:46 AM EST) Magnesium 1.9 1.5 - 2.5 mg/dL 05/03/2025 6:38 AM EST [facility] Plasma 05/03/2025 5:46 AM EST 05/03/2025 6:11 AM EST Raya CRUZ LAB BLOOD ORDERABLES Final Re sult [facility] [address] [facility]. [address] * (ABNORMAL) Hepatic Function Panel (05/03/2025 5:46 AM EST) Total Bilirubin 2.4(H) 0.0 - 1.5 mg/dL 05/03/2025 6:38 AM EST [facility] Bilirubin, Direct 1.31(H) 0.00 - 0.40 mg/dL 05/03/2025 6:38 AM EST [facility] AST 54(H) 13 - 39 U/L 05/03/2025 6:38 AM EST [facility] ALT 108(H) 7 - 52 U/L 05/03/2025 6:38 AM EST [facility] Alkaline Phosphatase 849(H) 36 - 125 U/L 05/03/2025 6:38 AM EST [facility] Total Protein 4.7(L) 6.4 - 8.9 g/dL 05/03/2025 6:38 AM EST [facility] Albumin 3.5 3.5 - 5.7 g/dL 05/03/2025 6:38 AM EST [facility] Bilirubin, Indirect 1.09 0.00 - 1.10 mg/dL 05/03/2025 6:38 AM EST [facility] Plasma 05/03/2025 5:46 AM EST 05/03/2025 6:11 AM EST Raya CRUZ LAB BLOOD ORDERABLES Final Re sult [facility] [address] [facility]. [address] * (ABNORMAL) CBC (05/03/2025 5:46 AM EST) WBC 5.4 3.8 - 10.8 10E3/uL 05/03/2025 6:24 AM EST [facility] RBC 2.26(L) 3.80 - 5.10 10E6/uL 05/03/2025 6:24 AM EST [facility] Hemoglobin 7.1(L) 11.7 - 15.5 g/dL 05/03/2025 6:24 AM EST [facility] Hematocrit 20.9(L) 35.0 - 45.0 % 05/03/2025 6:24 AM EST [facility] MCV 92.3 80.0 - 100.0 fL 05/03/2025 6:24 AM EST [facility] MCH 31.3 27.0 - 33.0 pg 05/03/2025 6:24 AM EST [facility] MCHC 33.9 32.0 - 36.0 g/dL 05/03/2025 6:24 AM EST [facility] RDW 21.0(H) 11.0 - 15.0 % 05/03/2025 6:24 AM EST [facility] Platelets 147 140 - 400 10E3/uL 05/03/2025 6:24 AM EST [facility] MPV 11.1 7.5 - 11.5 fL 05/03/2025 6:24 AM EST [facility] Whole Blood 05/03/2025 5:46 AM EST 05/03/2025 6:11 AM EST Raya CRUZ LAB BLOOD ORDERABLES Final Re sult [facility] [address] * Tacrolimus level (05/03/2025 5:46 AM EST) Tacrolimus (LC-MS) 7.2 3.0 - 15.0 ng/mL 05/03/2025 10:24 AM EST [facility] Comment:Performed via liquid chromatography tandem mass spectrometry. Detection limit: 1 ng/mL. Individual target concentrations may vary due to target organ and time after transplant. This test has been developed and its performance characteristics determined by [facility] which is certified under the [...] Final Resul t Performing Organization Address [facility] Co de Phone Number [address] * (ABNORMAL) POC Glucose Monitoring Device (05/02/2025 9:09 PM EST) POC Glucose Monitoring Device 138(H) 70 - 100 mg/dL 05/02/2025 9:10 PM EST [facility] Blood 05/02/2025 9:09 PM EST 05/02/2025 9:09 PM EST Ludin Jose MD POINT OF CARE TEST ORDERABLES Fi nal Result Performing Organization Address [facility] de Phone Number [facility] [address] [place] [address]. [address] * (ABNORMAL) POC Glucose Monitoring Device (05/02/2025 5:02 PM EST) POC Glucose Monitoring Device 184(H) 70 - 100 mg/dL 05/02/2025 5:03 PM EST [facility] Blood 05/02/2025 5:02 PM EST 05/02/2025 5:03 PM EST us Ludin Jose MD POINT OF CARE TEST ORDERABLES Fi nal Result Performing Organization Address City/[facility] Co de Phone Number [address] * POC Glucose Monitoring Device (05/02/2025 10:52 AM EST) POC Glucose Monitoring Device 100 70 - 100 mg/dL 05/02/2025 10:53 AM EST [facility] Blood 05/02/2025 10:5 2 AM EST 05/02/2025 10:52 AM EST us Ludin Jose MD POINT OF CARE TEST ORDERABLES Fi nal Result [facility] [address] * POC Glucose Monitoring Device (05/02/2025 5:58 AM EST) [facility] POC Glucose Monitoring Device 85 70 - 100 mg/dL 05/02/2025 5:58 AM EST [facility] Blood 05/02/2025 5:58 AM EST 05/02/2025 5:58 AM EST us Ludin Jose MD POINT OF CARE TEST ORDERABLES Fi nal Result Performing Organization Address City/[facility] Co de Phone Number [facility] [address] * (ABNORMAL) Renal Function Panel w/EGFR (05/02/2025 5:34 AM EST) [facility] Sodium 135 133 - 146 mmol/L 05/02/2025 6:11 AM EST [facility] Potassium 4.1 3.5 - 5.3 mmol/L 05/02/2025 6:11 AM EST [facility] Chloride 103 98 - 110 mmol/L 05/02/2025 6:11 AM [facility] CO2 26 21 - 33 mmol/L 05/02/2025 6:11 AM EST [facility] Comment:High lactate dehydro genase concentrations in patient samples may cause falsely increased bicarbonate results. If markedly elevated LDH is observed or suspected, please assess results in conjunction with patient`s clinical presentation. In cases of discrepant results, consider evaluating CO2 in with a blood gas order. Anion Gap 6 3 - 16 mmol/L 05/02/2025 6:11 AM EST [facility] BUN 26(H) 7 - 25 mg/dL 05/02/2025 6:11 AM EST [facility] Creatinine 0.99 0.60 - 1.30 mg/dL 05/02/2025 6:11 AM EST [facility] Glucose 79 70 - 100 mg/dL 05/02/2025 6:11 AM EST [facility] Calcium 8.3(L) 8.6 - 10.3 mg/dL 05/02/2025 6:11 AM EST [facility] Phosphorus 3.0 2.1 - 4.7 mg/dL 05/02/2025 6:11 AM EST [facility] Albumin 3.3(L) 3.5 - 5.7 g/dL 05/02/2025 6:11 AM EST [facility] Osmolality, Calculated 284 278 - 305 mOsm/kg 05/02/2025 6:11 AM EST [facility] EGFR 76 05/02/2025 6:11 AM EST [facility] Comment:As of 2021, the estimated [...] CRUZ LAB BLOOD ORDERABLES Final Re sult [facility] [address] [place] [address], [facility] * Magnesium (05/02/2025 5:34 AM EST) Magnesium 1.8 1.5 - 2.5 mg/dL 05/02/2025 6:11 AM EST [facility] Plasma 05/02/2025 5:34 AM EST 05/02/2025 5:42 AM EST Raya CRUZ LAB BLOOD ORDERABLES Final Re sult Performing Organization Address [facility] Co de Phone Number [facility] [address] [facility]. [address] * (ABNORMAL) Hepatic Function Panel (05/02/2025 5:34 AM EST) Total Bilirubin 3.2(H) 0.0 - 1.5 mg/dL 05/02/2025 6:11 AM EST [facility] Bilirubin, Direct 2.02(H) 0.00 - 0.40 mg/dL 05/02/2025 6:11 AM EST [facility] AST 94(H) 13 - 39 U/L 05/02/2025 6:11 AM EST [facility] ALT 135(H) 7 - 52 U/L 05/02/2025 6:11 AM EST [facility] Alkaline Phosphatase 869(H) 36 - 125 U/L 05/02/2025 6:11 AM EST [facility] Total Protein 4.5(L) 6.4 - 8.9 g/dL 05/02/2025 6:11 AM EST [facility] Albumin 3.3(L) 3.5 - 5.7 g/dL 05/02/2025 6:11 AM EST [facility] Bilirubin, Indirect 1.18(H) 0.00 - 1.10 mg/dL 05/02/2025 6:11 AM EST [facility] Plasma 05/02/2025 5:34 AM EST 05/02/2025 5:42 AM EST Raya CRUZ LAB BLOOD ORDERABLES Final Re sult [facility] [address] * (ABNORMAL) CBC (05/02/2025 5:34 AM EST) WBC 5.8 3.8 - 10.8 10E3/uL 05/02/2025 5:56 AM EST [facility] RBC 2.26(L) 3.80 - 5.10 10E6/uL 05/02/2025 5:56 AM EST [facility] Hemoglobin 7.3(L) 11.7 - 15.5 g/dL 05/02/2025 5:56 AM EST [facility] Hematocrit 20.8(L) 35.0 - 45.0 % 05/02/2025 5:56 AM EST [facility] MCV 92.0 80.0 - 100.0 fL 05/02/2025 5:56 AM EST [facility] MCH 32.1 27.0 - 33.0 pg 05/02/2025 5:56 AM EST [facility] MCHC 34.9 32.0 - 36.0 g/dL 05/02/2025 5:56 AM EST [facility] RDW 20.6(H) 11.0 - 15.0 % 05/02/2025 5:56 AM EST [facility] Platelets 109(L) 140 - 400 10E3/uL 05/02/2025 5:56 AM EST [facility] MPV 10.8 7.5 - 11.5 fL 05/02/2025 5:56 AM EST [facility] Whole Blood 05/02/2025 5:34 AM EST 05/02/2025 5:42 AM EST us Raya CRUZ LAB BLOOD ORDERABLES Final Re sult Performing Organization Address City/State/[facility] Co de Phone Number [facility] [address] [address] * (ABNORMAL) Triglycerides (05/02/2025 5:34 AM EST) Triglycerides 254(H) 10 - 149 mg/dL 05/02/2025 6:11 AM EST [facility] Plasma 05/02/2025 5:34 AM EST 05/02/2025 5:42 AM EST us Gloria Chen MD LAB BLOOD ORDERABLES Final Resul t Performing Organization Address City/[facility] Co de Phone Number [facility] [address] [facility]. [address] * Tacrolimus level (05/02/2025 5:34 AM EST) Pathologist [facility] Tacrolimus (LC-MS) 7.9 3.0 - 15.0 ng/mL 05/02/2025 9:12 AM EST [facility] Comment:Performed via liquid chromatography tandem mass spectrometry. Detection limit: 1 ng/mL. Individual target concentrations may vary due to target organ and time after transplant. This test has been developed and its performance characteristics determined by [facility] which is certified under the [...] Final Resul t Performing Organization Address [facility] de Phone Number [facility] [address] [place] [address]. [address] * (ABNORMAL) POC Glucose Monitoring Device (05/01/2025 11:58 PM EST) Pathologist [facility] POC Glucose Monitoring Device 114(H) 70 - 100 mg/dL 05/01/2025 11:58 PM EST [facility] Blood 05/01/2025 11:5 8 PM EST 05/01/2025 11:58 PM EST Ludin Jose MD POINT OF CARE TEST ORDERABLES Fi nal Result Performing Organization Address [facility] Co de Phone Number [facility] [address] [place] [address]. [address] * MRI Abdomen W and WO [...] - 100 mg/dL 05/01/2025 11:14 AM EST [facility] Blood 05/01/2025 11:1 4 AM EST 05/01/2025 11:14 AM EST Ludin Jose MD POINT OF CARE TEST ORDERABLES Fi nal Result Performing Organization Address [facility]/State/[facility] Co de Phone Number [facility] [address] * Protime-INR, STAT (05/01/2025 10:21 AM EST) Protime 13.8 12.1 - 15.1 seconds 05/01/2025 11:14 AM EST [facility] INR 1.0 0.9 - 1.1 05/01/2025 11:14 AM EST [facility] Comment: RECOMMENDED THERAPEUTIC RANGES USING INR : Stable oral anticoagulant therapy: 2.0 - 3.0 Mechanical prosthetic heart valve: 2.5 - 3.5 Recurrent acute myocardial infarction: 2.5 - 3.5 Plasma 05/01/2025 10:2 1 AM EST 05/01/2025 10:29 AM EST us Shannon Johns MD LAB BLOOD ORDERABLES Final Res ult [facility] [address] [facility]. [address] * POC Glucose Monitoring Device (05/01/2025 7:38 AM EST) POC Glucose Monitoring Device 100 70 - 100 mg/dL 05/01/2025 7:38 AM EST [facility] Blood 05/01/2025 7:38 AM EST 05/01/2025 7:38 AM EST us Ludin Jose MD POINT OF CARE TEST ORDERABLES Fi nal Result Performing Organization Address City/[facility]/ZIP Co de Phone Number [facility] [address] [facility]. [address] * (ABNORMAL) Renal Function Panel w/EGFR (05/01/2025 6:09 AM EST) Sodium 136 133 - 146 mmol/L 05/01/2025 7:20 AM EST [facility] Potassium 4.1 3.5 - 5.3 mmol/L 05/01/2025 7:20 AM EST [facility] Chloride 104 98 - 110 mmol/L 05/01/2025 7:20 AM [facility] CO2 25 21 - 33 mmol/L 05/01/2025 7:20 AM EST [facility] Comment:High lactate dehydro genase concentrations in patient samples may cause falsely increased bicarbonate results. If markedly elevated LDH is observed or suspected, please assess results in conjunction with patient`s clinical presentation. In cases of discrepant results, consider evaluating CO2 in with a blood gas order. Anion Gap 7 3 - 16 mmol/L 05/01/2025 7:20 AM EST [facility] BUN 17 7 - 25 mg/dL 05/01/2025 7:20 AM EST [facility] Creatinine 0.79 0.60 - 1.30 mg/dL 05/01/2025 7:20 AM EST [facility] Glucose 85 70 - 100 mg/dL 05/01/2025 7:20 AM EST [facility] Calcium 8.1(L) 8.6 - 10.3 mg/dL 05/01/2025 7:20 AM EST [facility] Phosphorus 2.7 2.1 - 4.7 mg/dL 05/01/2025 7:20 AM EST [facility] Albumin 3.3(L) 3.5 - 5.7 g/dL 05/01/2025 7:20 AM EST [facility] Osmolality, Calculated 283 278 - 305 mOsm/kg 05/01/2025 7:20 AM EST [facility] EGFR >90 05/01/2025 7:20 AM EST [facility] Comment: As of 2021, the [...] CRUZ LAB BLOOD ORDERABLES Final Re sult [facility] [address] * Magnesium (05/01/2025 6:09 AM EST) Magnesium 1.7 1.5 - 2.5 mg/dL 05/01/2025 7:20 AM EST [facility] Plasma 05/01/2025 6:09 AM EST 05/01/2025 6:30 AM EST Raya CRUZ LAB BLOOD ORDERABLES Final Re sult [facility] [address] [facility]. [address] * (ABNORMAL) Hepatic Function Panel (05/01/2025 6:09 AM EST) Total Bilirubin 3.5(H) 0.0 - 1.5 mg/dL 05/01/2025 7:20 AM EST [facility] Bilirubin, Direct 2.21(H) 0.00 - 0.40 mg/dL 05/01/2025 7:20 AM EST [facility] AST 113(H) 13 - 39 U/L 05/01/2025 7:20 AM EST [facility] ALT 140(H) 7 - 52 U/L 05/01/2025 7:20 AM EST [facility] Alkaline Phosphatase 839(H) 36 - 125 U/L 05/01/2025 7:20 AM EST [facility] Total Protein 4.5(L) 6.4 - 8.9 g/dL 05/01/2025 7:20 AM EST [facility] Albumin 3.3(L) 3.5 - 5.7 g/dL 05/01/2025 7:20 AM EST [facility] Bilirubin, Indirect 1.29(H) 0.00 - 1.10 mg/dL 05/01/2025 7:20 AM EST [facility] Plasma 05/01/2025 6:09 AM EST 05/01/2025 6:30 AM EST Raya CRUZ LAB BLOOD ORDERABLES Final Re sult [facility] [address] [facility]. [address] * (ABNORMAL) CBC (05/01/2025 6:09 AM EST) WBC 7.5 3.8 - 10.8 10E3/uL 05/01/2025 6:51 AM EST [facility] RBC 2.55(L) 3.80 - 5.10 10E6/uL 05/01/2025 6:51 AM EST [facility] Hemoglobin 8.0(L) 11.7 - 15.5 g/dL 05/01/2025 6:51 AM EST [facility] Hematocrit 23.4(L) 35.0 - 45.0 % 05/01/2025 6:51 AM EST [facility] MCV 91.5 80.0 - 100.0 fL 05/01/2025 6:51 AM EST [facility] MCH 31.2 27.0 - 33.0 pg 05/01/2025 6:51 AM EST [facility] MCHC 34.1 32.0 - 36.0 g/dL 05/01/2025 6:51 AM EST [facility] RDW 21.5(H) 11.0 - 15.0 % 05/01/2025 6:51 AM EST [facility] Platelets 102(L) 140 - 400 10E3/uL 05/01/2025 6:51 AM EST [facility] MPV 10.6 7.5 - 11.5 fL 05/01/2025 6:51 AM EST [facility] Whole Blood 05/01/2025 6:09 AM EST 05/01/2025 6:30 AM EST Raya CRUZ LAB BLOOD ORDERABLES Final Re sult [facility] [address] [place] [address], [facility] * Tacrolimus level (05/01/2025 6:09 AM EST) Tacrolimus (LC-MS) 6.9 3.0 - 15.0 ng/mL 05/01/2025 3:08 PM EST [facility] Comment:Performed via liquid chromatography tandem mass spectrometry. Detection limit: 1 ng/mL. Individual target concentrations may vary due to target organ and time after transplant. This test has been developed and its performance characteristics determined by [facility] which is certified under the [...] ORDERABLES Final Resul t Performing Organization Address City/[facility]/ZIP Co de Phone Number [facility] [address] [place] [address] * (ABNORMAL) POC Glucose Monitoring Device (05/01/2025 12:02 AM EST) POC Glucose Monitoring Device 168(H) 70 - 100 mg/dL 05/01/2025 12:03 AM EST [facility] Blood 05/01/2025 12:0 2 AM EST 05/01/2025 12:03 AM EST Ludin Jose MD POINT OF CARE TEST ORDERABLES Fi nal Result Performing Organization Address [facility] Co de Phone Number [address] * (ABNORMAL) POC Glucose Monitoring Device (04/30/2025 4:59 PM EST) POC Glucose Monitoring Device 191(H) 70 - 100 mg/dL 04/30/2025 5:02 PM EST [facility] Blood 04/30/2025 4:59 PM EST 04/30/2025 5:01 PM EST Ludin oJse MD POINT OF CARE TEST ORDERABLES Fi nal Result Performing Organization Address City/[facility] Co de Phone Number [facility] [address] [place] [address] * (ABNORMAL) POC Glucose Monitoring Device (04/30/2025 3:47 PM EST) POC Glucose Monitoring Device 158(H) 70 - 100 mg/dL 04/30/2025 3:47 PM EST [facility] Blood 04/30/2025 3:47 PM EST 04/30/2025 3:47 PM EST us Ludin Jose MD POINT OF CARE TEST ORDERABLES Fi nal Result Performing Organization Address City/[facility] Co de Phone Number [facility] [address] * (ABNORMAL) POC Glucose Monitoring Device (04/30/2025 12:08 PM EST) POC Glucose Monitoring Device 121(H) 70 - 100 mg/dL 04/30/2025 12:09 PM EST [facility] Blood 04/30/2025 12:0 8 PM EST 04/30/2025 12:09 PM EST us uLdin Jose MD POINT OF CARE TEST ORDERABLES Fi nal Result Performing Organization Address [facility] Co de Phone Number [facility] H[facility] [address] [facility]. [address] * POC Glucose Monitoring Device (04/30/2025 8:44 AM EST) POC Glucose Monitoring Device 98 70 - 100 mg/dL 04/30/2025 8:45 AM EST [facility] Blood 04/30/2025 8:44 AM EST 04/30/2025 8:44 AM EST us Ludin Jose MD POINT OF CARE TEST ORDERABLES Fi nal Result Performing Organization Address [facility] Co de Phone Number [facility] [address] [facility]. [address] * (ABNORMAL) Renal Function Panel w/EGFR (04/30/2025 5:12 AM EST) Sodium 136 133 - 146 mmol/L 04/30/2025 6:36 AM EST [facility] Potassium 3.5 3.5 - 5.3 mmol/L 04/30/2025 6:36 AM EST [facility] Chloride 105 98 - 110 mmol/L 04/30/2025 6:36 AM EST [facility] CO2 23 21 - 33 mmol/L 04/30/2025 6:36 AM [facility] Comment:High lactate dehydro genase concentrations in patient samples may cause falsely increased bicarbonate results. If markedly elevated LDH is observed or suspected, please assess results in conjunction with patient`s clinical presentation. In cases of discrepant results, consider evaluating CO2 in with a blood gas order. Anion Gap 8 3 - 16 mmol/L 04/30/2025 6:36 AM [facility] BUN 18 7 - 25 mg/dL 04/30/2025 6:36 AM [facility] Creatinine 0.87 0.60 - 1.30 mg/dL 04/30/2025 6:36 AM [facility] Glucose 106(H) 70 - 100 mg/dL 04/30/2025 6:36 AM [facility] Calcium 8.0(L) 8.6 - 10.3 mg/dL 04/30/2025 6:36 AM [facility] Phosphorus 2.2 2.1 - 4.7 mg/dL 04/30/2025 6:36 AM [facility] Albumin 3.2(L) 3.5 - 5.7 g/dL 04/30/2025 6:36 AM [facility] Osmolality, Calculated 284 278 - 305 mOsm/kg 04/30/2025 6:36 AM [facility] EGFR 89 04/30/2025 6:36 AM [facility] Comment:As of 2021, the [...] CRUZ LAB BLOOD ORDERABLES Final Re sult [facility] [address] * Magnesium (04/30/2025 5:12 AM EST) Magnesium 1.7 1.5 - 2.5 mg/dL 04/30/2025 6:36 AM EST [facility] Plasma 04/30/2025 5:12 AM EST 04/30/2025 5:55 AM EST Raya CRUZ LAB BLOOD ORDERABLES Final Re sult Performing Organization Address [facility] Co de Phone Number [facility] [address] [facility]. [address] * (ABNORMAL) Hepatic Function Panel (04/30/2025 5:12 AM EST) Total Bilirubin 3.1(H) 0.0 - 1.5 mg/dL 04/30/2025 6:36 AM EST [facility] Bilirubin, Direct 2.10(H) 0.00 - 0.40 mg/dL 04/30/2025 6:36 AM EST [facility] AST 85(H) 13 - 39 U/L 04/30/2025 6:36 AM EST [facility] ALT 98(H) 7 - 52 U/L 04/30/2025 6:36 AM EST [facility] Alkaline Phosphatase 600(H) 36 - 125 U/L 04/30/2025 6:36 AM EST [facility] Total Protein 4.2(L) 6.4 - 8.9 g/dL 04/30/2025 6:36 AM EST [facility] Albumin 3.2(L) 3.5 - 5.7 g/dL 04/30/2025 6:36 AM EST [facility] Bilirubin, Indirect 1.00 0.00 - 1.10 mg/dL 04/30/2025 6:36 AM EST [facility] Plasma 04/30/2025 5:12 AM EST 04/30/2025 5:55 AM EST Raya CRUZ LAB BLOOD ORDERABLES Final Re sult [facility] [address] * (ABNORMAL) CBC (04/30/2025 5:12 AM EST) WBC 4.3 3.8 - 10.8 10E3/uL 04/30/2025 6:08 AM EST [facility] RBC 2.29(L) 3.80 - 5.10 10E6/uL 04/30/2025 6:08 AM EST [facility] Hemoglobin 7.2(L) 11.7 - 15.5 g/dL 04/30/2025 6:08 AM EST [facility] Hematocrit 21.2(L) 35.0 - 45.0 % 04/30/2025 6:08 AM EST [facility] MCV 92.2 80.0 - 100.0 fL 04/30/2025 6:08 AM EST [facility] MCH 31.3 27.0 - 33.0 pg 04/30/2025 6:08 AM EST [facility] MCHC 33.9 32.0 - 36.0 g/dL 04/30/2025 6:08 AM EST [facility] RDW 20.8(H) 11.0 - 15.0 % 04/30/2025 6:08 AM EST [facility] Platelets 87(L) 140 - 400 10E3/uL 04/30/2025 6:08 AM EST [facility] MPV 10.4 7.5 - 11.5 fL 04/30/2025 6:08 AM EST [facility] Whole Blood 04/30/2025 5:12 AM EST 04/30/2025 5:55 AM EST Raya CRUZ LAB BLOOD ORDERABLES Final Re sult [facility] [address] [facility]. [address] * Tacrolimus level (04/30/2025 5:12 AM EST) Pathologist [facility] Tacrolimus (LC-MS) 7.5 3.0 - 15.0 ng/mL 04/30/2025 3:31 PM EST [facility] Comment:Performed via liquid chromatography tandem mass spectrometry. Detection limit: 1 ng/mL. Individual target concentrations may vary due to target organ and time after transplant. This test has been developed and its performance characteristics determined by [facility] which is certified under the Clinical Laboratory [...] ORDERABLES Final Resul t Performing Organization Address City/[facility]/ZIP Co de Phone Number [facility] [address] [place] [address]. [address] * (ABNORMAL) POC Glucose Monitoring Device (04/29/2025 10:12 PM EST) [facility] POC Glucose Monitoring Device 127(H) 70 - 100 mg/dL 04/29/2025 10:13 PM EST [facility] Blood 04/29/2025 10:1 2 PM EST 04/29/2025 10:13 PM EST Ludin Jose MD POINT OF CARE TEST ORDERABLES Fi nal Result [facility] [address] * (ABNORMAL) POC Glucose Monitoring Device (04/29/2025 5:04 PM EST) [facility] POC Glucose Monitoring Device 151(H) 70 - 100 mg/dL 04/29/2025 5:05 PM EST [facility] Blood 04/29/2025 5:04 PM EST 04/29/2025 5:05 PM EST us Ludin Jose MD POINT OF CARE TEST ORDERABLES Fi nal Result Performing Organization Address [facility] Co de Phone Number [facility] [address] [place] [address] * (ABNORMAL) POC Glucose Monitoring Device (04/29/2025 12:58 PM EST) POC Glucose Monitoring Device 169(H) 70 - 100 mg/dL 04/29/2025 12:59 PM EST [facility] Blood 04/29/2025 12:5 8 PM EST 04/29/2025 12:59 PM EST us Ludin Jose MD POINT OF CARE TEST ORDERABLES Fi nal Result Performing Organization Address [facility] de Phone Number [facility] [address] [place] [address]. [address] * (ABNORMAL) POC Glucose Monitoring Device (04/29/2025 11:54 AM EST) POC Glucose Monitoring Device 150(H) 70 - 100 mg/dL 04/29/2025 11:55 AM EST [facility] Blood 04/29/2025 11:5 4 AM EST 04/29/2025 11:55 AM EST us Ludin Jose MD POINT OF CARE TEST ORDERABLES Fi nal Result Performing Organization Address [facility] de Phone Number [address] * US Abdomen Limited (04/29/2025 11:18 [...] EXAM: US ABDOMEN LIMITED EXAM: US DUPLEX [id number] COMPLETE INDICATION: Post-op liver transplant, right lobe [...] EXAM: US ABDOMEN LIMITED EXAM: US DUPLEX [id number] COMPLETE INDICATION: Post-op liver transplant, right lobe [...] US ORDERABLES Final Result * US Duplex [id number] Comp (04/29/2025 11:18 AM EST) Anatomical Region [...] EXAM: US ABDOMEN LIMITED EXAM: US DUPLEX [id number] COMPLETE INDICATION: Post-op liver transplant, right lobe [...] EXAM: US ABDOMEN LIMITED EXAM: US DUPLEX [id number] COMPLETE INDICATION: Post-op liver transplant, right lobe [...] EST Narrative 04/29/2025 2:07 PM EST * [facility]* [address] [place] [id number] Transthoracic Echocardiogram Patient: Mindy Wade Room: Height: 65in MR Number: [id number] : 1990 Weight: 157lb Account: [id number] Gender: F BP: Study Date: 04/29/2025 Age: 35 BSA: 1.78m^2 Referring physician: Interpreting physician: Chantelle Perez MD PERFORMING Chantelle Perez MD PROPOSAL MANAGER Kalie Lopez Procedure: Order: Indications: Shortness of [...] ml 52 Vol/bsa, S (L) 14 ml/m^2 34 Vol, ES, 1-p (N) 24 ml A4C Vol/bsa, ES, (N) 14 ml/m^2 11 - 40 1-p A4C Vol, ES, 1-p (N) 25 ml A2C Vol/bsa, ES, (N) 14 ml/m^2 13 [...] Reviewed and confirmed by Chantelle Perez MD [id number] Procedure Note Chantelle Perez MD - 05/02/2025 * [facility]* [address] [place] [address] Transthoracic Echocardiogram Patient: Mindy Wade Room: Height: 65in MR Number: [id number] : 1990 Weight:157lb Account: [id number] Gender: F BP: Study Date: 04/29/2025 Age: 35 BSA:1.78m^2 Referring physician: Interpreting physician: Chantelle Perez MD PERFORMING Chantelle Perez MD PROPOSAL MANAGER Kalie Lopez Procedure: Order: Indications: Shortness of [...] 36 FS, LAX chord (H) 46 % 36 ESD major ax, 6.5 cm --------- [...] ml/m^2 Vol, ES, 1-p (N) 24 ml 22 52 A4C Vol/bsa, ES, (N) 14 ml/m^2 11 - 40 1-p A4C Vol, ES, 1-p (N) 25 ml 52 A2C Vol/bsa, ES, (N) 14 ml/m^2 13 - 40 1-p A2C Vol, ES, 2-p 25 ml --------- Vol/bsa, ES, (L) 14 ml/m^2 34 2-p Right atrium Value Ref 02/01/2025 [...] Reviewed and confirmed by Chantelle Perez MD [id number] us Jostin Hess MD CV ECHO ORDERABLES [...] - 146 mmol/L 04/29/2025 6:09 AM EST [facility] Potassium 4.1 3.5 - 5.3 mmol/L 04/29/2025 6:09 AM [facility] Chloride 108 98 - 110 mmol/L 04/29/2025 6:09 AM [facility] CO2 23 21 - 33 mmol/L 04/29/2025 6:09 AM [facility] Comment:High lactate dehydro genase concentrations in patient samples may cause falsely increased bicarbonate results. If markedly elevated LDH is observed or suspected, please assess results in conjunction with patient`s clinical presentation. In cases of discrepant results, consider evaluating CO2 in with a blood gas order. Anion Gap 4 3 - 16 mmol/L 04/29/2025 6:09 AM EST [facility] BUN 18 7 - 25 mg/dL 04/29/2025 6:09 AM [facility] Creatinine 0.75 0.60 - 1.30 mg/dL 04/29/2025 6:09 AM [facility] Glucose 95 70 - 100 mg/dL 04/29/2025 6:09 AM [facility] Calcium 7.7(L) 8.6 - 10.3 mg/dL 04/29/2025 6:09 AM [facility] Phosphorus 3.0 2.1 - 4.7 mg/dL 04/29/2025 6:09 AM [facility] Albumin 2.4(L) 3.5 - 5.7 g/dL 04/29/2025 6:09 AM [facility] Osmolality, Calculated 282 278 - 305 mOsm/kg 04/29/2025 6:09 AM EST [facility] EGFR >90 04/29/2025 6:09 AM [facility] Comment: As of 2021, [...] EST 04/29/2025 5:32 AM EST Raya Rodriguez [place] LAB BLOOD ORDERABLES Final Re sult Performing Organization Address City/[facility]/ZIP Co de Phone Number [facility] [address] [facility]. [address] * Magnesium (04/29/2025 5:25 AM EST) Pathologist [facility] Magnesium 1.7 1.5 - 2.5 mg/dL 04/29/2025 6:09 AM EST [facility] Plasma 04/29/2025 5:25 AM EST 04/29/2025 5:32 AM EST Raya Rodriguez [place] LAB BLOOD ORDERABLES Final Re sult Performing Organization Address [facility] Co de Phone Number [facility] [address] [facility]. [address] * (ABNORMAL) Hepatic Function Panel (04/29/2025 5:25 AM EST) Total Bilirubin 3.1(H) 0.0 - 1.5 mg/dL 04/29/2025 6:09 AM EST [facility] Bilirubin, Direct 2.02(H) 0.00 - 0.40 mg/dL 04/29/2025 6:09 AM EST [facility] AST 62(H) 13 - 39 U/L 04/29/2025 6:09 AM EST [facility] ALT 94(H) 7 - 52 U/L 04/29/2025 6:09 AM [facility] Alkaline Phosphatase 452(H) 36 - 125 U/L 04/29/2025 6:09 AM EST [facility] Total Protein 4.0(L) 6.4 - 8.9 g/dL 04/29/2025 6:09 AM [facility] Albumin 2.4(L) 3.5 - 5.7 g/dL 04/29/2025 6:09 AM [facility] Bilirubin, Indirect 1.08 0.00 - 1.10 mg/dL 04/29/2025 6:09 AM [facility] Plasma 04/29/2025 5:25 AM EST 04/29/2025 5:32 AM EST us Raya CRUZ LAB BLOOD ORDERABLES Final Re sult [facility] [address] * (ABNORMAL) CBC (04/29/2025 5:25 AM EST) WBC 5.3 3.8 - 10.8 10E3/uL 04/29/2025 5:49 AM EST [facility] RBC 2.56(L) 3.80 - 5.10 10E6/uL 04/29/2025 5:49 AM [facility] Hemoglobin 7.9(L) 11.7 - 15.5 g/dL 04/29/2025 5:49 AM [facility] Hematocrit 23.3(L) 35.0 - 45.0 % 04/29/2025 5:49 AM [facility] MCV 90.8 80.0 - 100.0 fL 04/29/2025 5:49 AM EST [facility] MCH 30.9 27.0 - 33.0 pg 04/29/2025 5:49 AM [facility] MCHC 34.0 32.0 - 36.0 g/dL 04/29/2025 5:49 AM EST [facility] RDW 18.9(H) 11.0 - 15.0 % 04/29/2025 5:49 AM EST [facility] Platelets 92(L) 140 - 400 10E3/uL 04/29/2025 5:49 AM EST [facility] MPV 10.0 7.5 - 11.5 fL 04/29/2025 5:49 AM EST [facility] Whole Blood 04/29/2025 5:25 AM EST 04/29/2025 5:32 AM EST Raya CRUZ LAB BLOOD ORDERABLES Final Re sult Performing Organization Address City/[facility]/ZIP Co de Phone Number [facility] [address] * (ABNORMAL) Tacrolimus level (04/29/2025 5:25 AM EST) Pathologist [facility] Tacrolimus (LC-MS) 16.8(H) 3.0 - 15.0 ng/mL 04/29/2025 10:35 AM EST [facility] Comment:Performed via liquid chromatography tandem mass spectrometry. Detection limit: 1 ng/mL. Individual target concentrations may vary due to target organ and time after transplant. This test has been developed and its performance characteristics determined by [facility] which is certified under the [...] Final Resul t Performing Organization Address [facility]/ZIP Co de Phone Number [facility] [address] * POC Glucose Monitoring Device (04/29/2025 5:06 AM EST) POC Glucose Monitoring Device 97 70 - 100 mg/dL 04/29/2025 5:07 AM EST [facility] Blood 04/29/2025 5:06 AM EST 04/29/2025 5:07 AM EST us Ludin Jose MD POINT OF CARE TEST ORDERABLES Fi nal Result [address] * (ABNORMAL) POC Glucose Monitoring Device (04/28/2025 11:10 PM EST) POC Glucose Monitoring Device 131(H) 70 - 100 mg/dL 04/28/2025 11:11 PM EST [facility] Blood 04/28/2025 11:1 0 PM EST 04/28/2025 11:10 PM EST Ludin Jose MD POINT OF CARE TEST ORDERABLES Fi nal Result Performing Organization Address [facility] Co de Phone Number [address] * (ABNORMAL) POC Glucose Monitoring Device (04/28/2025 5:19 PM EST) POC Glucose Monitoring Device 137(H) 70 - 100 mg/dL 04/28/2025 5:20 PM EST [facility] Blood 04/28/2025 5:19 PM EST 04/28/2025 5:20 PM EST us Ludin Jose MD POINT OF CARE TEST ORDERABLES Fi nal Result [address] * (ABNORMAL) POC Glucose Monitoring Device (04/28/2025 10:58 AM EST) POC Glucose Monitoring Device 132(H) 70 - 100 mg/dL 04/28/2025 10:59 AM EST [facility] Blood 04/28/2025 10:5 8 AM EST 04/28/2025 10:58 AM EST us Ludin Jose MD POINT OF CARE TEST ORDERABLES Fi nal Result Performing Organization Address City/[facility]/ZIP Co de Phone Number [facility] [address] * (ABNORMAL) POC Glucose Monitoring Device (04/28/2025 6:43 AM EST) POC Glucose Monitoring Device 111(H) 70 - 100 mg/dL 04/28/2025 6:44 AM EST [facility] Blood 04/28/2025 6:43 AM EST 04/28/2025 6:44 AM EST us Ludin Jose MD POINT OF CARE TEST ORDERABLES Fi nal Result Performing Organization Address [facility] Co de Phone Number [facility] [address] * (ABNORMAL) Renal Function Panel w/EGFR (04/28/2025 6:37 AM EST) Sodium 136 133 - 146 mmol/L 04/28/2025 7:30 AM EST [facility] Potassium 3.7 3.5 - 5.3 mmol/L 04/28/2025 7:30 AM [facility] Chloride 106 98 - 110 mmol/L 04/28/2025 7:30 AM [facility] CO2 23 21 - 33 mmol/L 04/28/2025 7:30 AM EST [facility] Comment:High lactate dehydro genase concentrations in patient samples may cause falsely increased bicarbonate results. If markedly elevated LDH is observed or suspected, please assess results in conjunction with patient`s clinical presentation. In cases of discrepant results, consider evaluating CO2 in with a blood gas order. Anion Gap 7 3 - 16 mmol/L 04/28/2025 7:30 AM EST [facility] BUN 17 7 - 25 mg/dL 04/28/2025 7:30 AM [facility] Creatinine 0.68 0.60 - 1.30 mg/dL 04/28/2025 7:30 AM [facility] Glucose 105(H) 70 - 100 mg/dL 04/28/2025 7:30 AM EST [facility] Calcium 7.5(L) 8.6 - 10.3 mg/dL 04/28/2025 7:30 AM EST [facility] Phosphorus 2.4 2.1 - 4.7 mg/dL 04/28/2025 7:30 AM EST [facility] Albumin 2.2(L) 3.5 - 5.7 g/dL 04/28/2025 7:30 AM EST [facility] Osmolality, Calculated 284 278 - 305 mOsm/kg 04/28/2025 7:30 AM EST [facility] EGFR >90 04/28/2025 7:30 AM EST [facility] Comment: As of 2021, the [...] CRUZ LAB BLOOD ORDERABLES Final Re sult [facility] [address] [facility] [place] [address], [facility] * Magnesium (04/28/2025 6:37 AM EST) Magnesium 1.9 1.5 - 2.5 mg/dL 04/28/2025 7:30 AM EST [facility] Plasma 04/28/2025 6:37 AM EST 04/28/2025 6:52 AM EST Raya CRUZ LAB BLOOD ORDERABLES Final Re sult Performing Organization Address [facility] Co de Phone Number [facility] [address] * (ABNORMAL) Hepatic Function Panel (04/28/2025 6:37 AM EST) Total Bilirubin 3.4(H) 0.0 - 1.5 mg/dL 04/28/2025 7:30 AM EST [facility] Bilirubin, Direct 2.28(H) 0.00 - 0.40 mg/dL 04/28/2025 7:30 AM EST [facility] AST 66(H) 13 - 39 U/L 04/28/2025 7:30 AM EST [facility] ALT 104(H) 7 - 52 U/L 04/28/2025 7:30 AM EST [facility] Alkaline Phosphatase 397(H) 36 - 125 U/L 04/28/2025 7:30 AM EST [facility] Total Protein 3.9(L) 6.4 - 8.9 g/dL 04/28/2025 7:30 AM EST [facility] Albumin 2.2(L) 3.5 - 5.7 g/dL 04/28/2025 7:30 AM EST [facility] Bilirubin, Indirect 1.12(H) 0.00 - 1.10 mg/dL 04/28/2025 7:30 AM EST [facility] Plasma 04/28/2025 6:37 AM EST 04/28/2025 6:52 AM EST Raya CRUZ LAB BLOOD ORDERABLES Final Re sult Performing Organization Address City/[facility]/ZIP Co de Phone Number [facility] [address] * (ABNORMAL) CBC (04/28/2025 6:37 AM EST) WBC 6.2 3.8 - 10.8 10E3/uL 04/28/2025 8:10 AM EST [facility] RBC 2.69(L) 3.80 - 5.10 10E6/uL 04/28/2025 8:10 AM EST [facility] Hemoglobin 8.4(L) 11.7 - 15.5 g/dL 04/28/2025 8:10 AM EST [facility] Hematocrit 24.1(L) 35.0 - 45.0 % 04/28/2025 8:10 AM EST [facility] MCV 89.7 80.0 - 100.0 fL 04/28/2025 8:10 AM EST [facility] MCH 31.2 27.0 - 33.0 pg 04/28/2025 8:10 AM EST [facility] MCHC 34.8 32.0 - 36.0 g/dL 04/28/2025 8:10 AM EST [facility] RDW 17.7(H) 11.0 - 15.0 % 04/28/2025 8:10 AM EST [facility] Platelets 111(L) 140 - 400 10E3/uL 04/28/2025 8:10 AM [facility] Comment:Specimen checked for clots. None detected. MPV 10.0 7.5 - 11.5 fL 04/28/2025 8:10 AM EST [facility] Whole Blood 04/28/2025 6:37 AM EST 04/28/2025 6:52 AM EST Raya CRUZ LAB BLOOD ORDERABLES Final Re sult [facility] [address] * (ABNORMAL) Tacrolimus level (04/28/2025 6:37 AM EST) Pathologist [facility] Tacrolimus (LC-MS) 16.6(H) 3.0 - 15.0 ng/mL 04/28/2025 10:26 AM EST [facility] Comment:Performed via liquid chromatography tandem mass spectrometry. Detection limit: 1 ng/mL. Individual target concentrations may vary due to target organ and time after transplant. This test has been developed and its performance characteristics determined by [facility] which is certified under the [...] ORDERABLES Final Resul t Performing Organization Address City/[facility]/ZIP Co de Phone Number [address] * (ABNORMAL) POC Glucose Monitoring Device (04/27/2025 11:04 PM EST) [facility] POC Glucose Monitoring Device 101(H) 70 - 100 mg/dL 04/27/2025 11:05 PM EST [facility] Blood 04/27/2025 11:0 4 PM EST 04/27/2025 11:05 PM EST Ludin Jose MD POINT OF CARE TEST ORDERABLES Fi nal Result Performing Organization Address [facility] Co de Phone Number [address] * CORNELIUS Rhythm Strip - Scan (04/27/2025 7:26 PM EST) Scanning [facility] SCAN DOCS - NO RESULTS Final Res ult * ECG 12-lead (MUSE) (04/27/2025 5:57 PM EST) 04/27/2025 5:57 PM EST Narrative MUSE - 04/28/2025 11:52 AM EST Ventricular Rate: 77 BPM Atrial Rate: 77 BPM P-R Interval: 102 ms QRS Duration: 90 ms QT: 420 ms QTc: 475 ms P [place]: 7 degrees R [place]: 16 degrees T [place]: 29 degrees Diagnosis Line: SINUS RHYTHM WITH SHORT AL ^ OTHERWISE NORMAL ECG ^ ^ Confirmed by Anthony RAMOS MD ([id number]) on 04/28/2025 11:52:02 AM Raya CRUZ ECG ORDERABLES Final Result Performing Organization Address [facility]/ZIP Co de Phone Number MUSE * (ABNORMAL) POC Glucose Monitoring Device (04/27/2025 5:55 PM EST) POC Glucose Monitoring Device 113(H) 70 - 100 mg/dL 04/27/2025 5:56 PM EST [facility] Blood 04/27/2025 5:55 PM EST 04/27/2025 5:56 PM EST uLdin Jose MD POINT OF CARE TEST ORDERABLES Fi nal Result Performing Organization Address [facility] Co de Phone Number [facility] [id number] [facility]. [address] * (ABNORMAL) Triglycerides (04/27/2025 11:36 AM EST) Triglycerides 247(H) 10 - 149 mg/dL 04/27/2025 1:31 PM EST [facility] Plasma 04/27/2025 11:3 6 AM EST 04/27/2025 12:05 PM EST Result [facility] Raya CRUZ LAB BLOOD ORDERABLES Final Re sult Performing Organization Address [facility] Co de Phone Number [facility] [address] [facility]. [address] * (ABNORMAL) POC Glucose Monitoring Device (04/27/2025 11:31 AM EST) POC Glucose Monitoring Device 134(H) 70 - 100 mg/dL 04/27/2025 11:32 AM EST [facility] Blood 04/27/2025 11:3 1 AM EST 04/27/2025 11:32 AM EST Ludin Jose MD POINT OF CARE TEST ORDERABLES Fi nal Result [facility] [address] [id number], [facility] * X-ray Portable Abdomen AP view (04/27/2025 [...] - 100 mg/dL 04/27/2025 5:05 AM EST [facility] Blood 04/27/2025 5:03 AM EST 04/27/2025 5:05 AM EST us Ludin Jose MD POINT OF CARE TEST ORDERABLES Fi nal Result Performing Organization Address City/[facility]/ZIP Co de Phone Number [facility] [address] [place] [address]. [address] * (ABNORMAL) POC Glucose Monitoring Device (04/27/2025 5:01 AM EST) POC Glucose Monitoring Device 316(H) 70 - 100 mg/dL 04/27/2025 5:03 AM EST [facility] Blood 04/27/2025 5:01 AM EST 04/27/2025 5:03 AM EST Ludin Jose MD POINT OF CARE TEST ORDERABLES Fi nal Result Performing Organization Address [facility] Co de Phone Number [facility] [address] [facility]. [address] * (ABNORMAL) POC Glucose Monitoring Device (04/27/2025 5:00 AM EST) POC Glucose Monitoring Device 307(H) 70 - 100 mg/dL 04/27/2025 5:03 AM EST [facility] Blood 04/27/2025 5:00 AM EST 04/27/2025 5:03 AM EST us Ludin Jose MD POINT OF CARE TEST ORDERABLES Fi nal Result Performing Organization Address City/[facility] Co de Phone Number [address] * Tacrolimus level (04/27/2025 4:56 AM EST) Tacrolimus (LC-MS) 6.3 3.0 - 15.0 ng/mL 04/27/2025 10:58 AM EST [facility] Comment:Performed via liquid chromatography tandem mass spectrometry. Detection limit: 1 ng/mL. Individual target concentrations may vary due to target organ and time after transplant. This test has been developed and its performance characteristics determined by [facility] which is certified under the [...] BLOOD ORDERABLES Final Resul t [facility] [address] [facility] [place] [address], [facility] * (ABNORMAL) CBC (04/27/2025 4:56 AM EST) WBC 3.5(L) 3.8 - 10.8 10E3/uL 04/27/2025 5:52 AM EST [facility] RBC 2.41(L) 3.80 - 5.10 10E6/uL 04/27/2025 5:52 AM EST [facility] Hemoglobin 7.6(L) 11.7 - 15.5 g/dL 04/27/2025 5:52 AM EST [facility] Hematocrit 21.7(L) 35.0 - 45.0 % 04/27/2025 5:52 AM EST [facility] MCV 90.2 80.0 - 100.0 fL 04/27/2025 5:52 AM EST [facility] MCH 31.4 27.0 - 33.0 pg 04/27/2025 5:52 AM EST [facility] MCHC 34.8 32.0 - 36.0 g/dL 04/27/2025 5:52 AM EST [facility] RDW 18.3(H) 11.0 - 15.0 % 04/27/2025 5:52 AM EST [facility] Platelets 62(L) 140 - 400 10E3/uL 04/27/2025 5:52 AM EST [facility] MPV 10.2 7.5 - 11.5 fL 04/27/2025 5:52 AM EST [facility] Whole Blood 04/27/2025 4:56 AM EST 04/27/2025 5:42 AM EST Gloria Chen MD LAB BLOOD ORDERABLES Final Resul t [facility] [address] [facility]. [address] * Phosphorus (04/27/2025 3:01 AM EST) Phosphorus 2.4 2.1 - 4.7 mg/dL 04/27/2025 3:30 AM EST [facility] Plasma 04/27/2025 3:01 AM EST 04/27/2025 3:09 AM EST Gloria Chen MD LAB BLOOD ORDERABLES Final Resul t Performing Organization Address City/[facility]/ZIP Co de Phone Number [facility] [address] [facility]. [address] * Magnesium (04/27/2025 3:01 AM EST) Magnesium 1.7 1.5 - 2.5 mg/dL 04/27/2025 3:30 AM EST [facility] Plasma 04/27/2025 3:01 AM EST 04/27/2025 3:09 AM EST Gloria Chen MD LAB BLOOD ORDERABLES Final Resul t Performing Organization Address City/[facility]/ZIP Co de Phone Number [facility] [address] [place] [address]. [address] * (ABNORMAL) Hepatic Function Panel (04/27/2025 3:01 AM EST) Total Bilirubin 4.0(H) 0.0 - 1.5 mg/dL 04/27/2025 3:30 AM EST [facility] Bilirubin, Direct 2.87(H) 0.00 - 0.40 mg/dL 04/27/2025 3:30 AM EST [facility] AST 74(H) 13 - 39 U/L 04/27/2025 3:30 AM EST [facility] ALT 104(H) 7 - 52 U/L 04/27/2025 3:30 AM EST [facility] Alkaline Phosphatase 342(H) 36 - 125 U/L 04/27/2025 3:30 AM EST [facility] Total Protein 3.7(L) 6.4 - 8.9 g/dL 04/27/2025 3:30 AM EST [facility] Albumin 2.1(L) 3.5 - 5.7 g/dL 04/27/2025 3:30 AM EST [facility] Bilirubin, Indirect 1.13(H) 0.00 - 1.10 mg/dL 04/27/2025 3:30 AM [facility] Plasma 04/27/2025 3:01 AM EST 04/27/2025 3:09 AM EST us Gloria Chen MD LAB BLOOD ORDERABLES Final Resul t [facility] [address] * (ABNORMAL) Basic metabolic panel (04/27/2025 3:01 AM EST) Sodium 138 133 - 146 mmol/L 04/27/2025 3:30 AM [facility] Potassium 4.2 3.5 - 5.3 mmol/L 04/27/2025 3:30 AM [facility] Chloride 112(H) 98 - 110 mmol/L 04/27/2025 3:30 AM [facility] CO2 24 21 - 33 mmol/L 04/27/2025 3:30 AM [facility] Comment:High lactate dehydro genase concentrations in patient samples may cause falsely increased bicarbonate results. If markedly elevated LDH is observed or suspected, please assess results in conjunction with patient`s clinical presentation. In cases of discrepant results, consider evaluating CO2 in with a blood gas order. Anion Gap 2(L) 3 - 16 mmol/L 04/27/2025 3:30 AM EST [facility] BUN 17 7 - 25 mg/dL 04/27/2025 3:30 AM EST [facility] Creatinine 0.57(L) 0.60 - 1.30 mg/dL 04/27/2025 3:30 AM EST [facility] Glucose 224(H) 70 - 100 mg/dL 04/27/2025 3:30 AM EST [facility] Calcium 7.0(L) 8.6 - 10.3 mg/dL 04/27/2025 3:30 AM EST [facility] Osmolality, Calculated 295 278 - 305 mOsm/kg 04/27/2025 3:30 AM EST [facility] EGFR >90 04/27/2025 3:30 AM EST [facility] Comment: As of 2021, the [...] BLOOD ORDERABLES Final Resul t [facility] [address] [facility] [place] [address], [facility] * (ABNORMAL) CBC (04/26/2025 11:55 PM EST) WBC 3.4(L) 3.8 - 10.8 10E3/uL 04/27/2025 12:34 AM EST [facility] RBC 2.40(L) 3.80 - 5.10 10E6/uL 04/27/2025 12:34 AM [facility] Hemoglobin 7.3(L) 11.7 - 15.5 g/dL 04/27/2025 12:34 AM [facility] Hematocrit 22.5(L) 35.0 - 45.0 % 04/27/2025 12:34 AM [facility] MCV 93.8 80.0 - 100.0 fL 04/27/2025 12:34 AM [facility] MCH 30.6 27.0 - 33.0 pg 04/27/2025 12:34 AM [facility] MCHC 32.6 32.0 - 36.0 g/dL 04/27/2025 12:34 AM [facility] RDW 17.7(H) 11.0 - 15.0 % 04/27/2025 12:34 AM [facility] Platelets 61(L) 140 - 400 10E3/uL 04/27/2025 12:34 AM [facility] Comment:Specimen checked for clots. None detected. MPV 9.6 7.5 - 11.5 fL 04/27/2025 12:34 AM [facility] Whole Blood 04/26/2025 11:5 5 PM EST 04/27/2025 12:01 AM EST us Gloria Chen MD LAB BLOOD ORDERABLES Final Resul t Performing Organization Address City/State/[facility] Co de Phone Number [facility] [address] [address] * POC Glucose Monitoring Device (04/26/2025 10:50 PM EST) [facility] POC Glucose Monitoring Device 82 70 - 100 mg/dL 04/26/2025 10:51 PM EST [facility] Blood 04/26/2025 10:5 0 PM EST 04/26/2025 10:51 PM EST us Ludin Jose MD POINT OF CARE TEST ORDERABLES Fi nal Result Performing Organization Address City/[facility]/ZIP Co de Phone Number [facility] [address] * Antibody Screen (04/26/2025 6:02 PM EST) Antibody Screen Negative 04/26/2025 6:50 PM EST [facility] Blood 04/26/2025 6:02 PM EST 04/26/2025 6:16 PM EST Narrative [facility] - 04/26/2025 6:52 PM EST Testing performed by [facility] Transfusion Service Gloria Chen MD BLOOD BANK TEST ORDERABLES Final Result Performing Organization Address [facility] Co de Phone Number [facility] [address] [facility]. [address] * ABO/Rh (04/26/2025 6:02 PM EST) ABO Grouping O 04/26/2025 6:37 PM EST [facility] Rh Type Positive 04/26/2025 6:37 PM EST [facility] Blood 04/26/2025 6:02 PM EST 04/26/2025 6:16 PM EST Gloria Chen MD BLOOD BANK TEST ORDERABLES Final Result Performing Organization Address City/[facility]/ZIP Co de Phone Number [facility] [address] [facility]. [address] * POC Glucose Monitoring Device (04/26/2025 6:00 PM EST) POC Glucose Monitoring Device 82 70 - 100 mg/dL 04/26/2025 6:02 PM EST [facility] Blood 04/26/2025 6:00 PM EST 04/26/2025 6:02 PM EST Ludin Jose MD POINT OF CARE TEST ORDERABLES Fi nal Result [facility] [address] [facility]. [address] * (ABNORMAL) CBC (04/26/2025 4:16 PM EST) WBC 4.1 3.8 - 10.8 10E3/uL 04/26/2025 4:43 PM EST [facility] RBC 2.75(L) 3.80 - 5.10 10E6/uL 04/26/2025 4:43 PM EST [facility] Hemoglobin 8.5(L) 11.7 - 15.5 g/dL 04/26/2025 4:43 PM EST [facility] Hematocrit 24.6(L) 35.0 - 45.0 % 04/26/2025 4:43 PM EST [facility] MCV 89.4 80.0 - 100.0 fL 04/26/2025 4:43 PM EST [facility] MCH 31.0 27.0 - 33.0 pg 04/26/2025 4:43 PM EST [facility] MCHC 34.7 32.0 - 36.0 g/dL 04/26/2025 4:43 PM EST [facility] RDW 17.1(H) 11.0 - 15.0 % 04/26/2025 4:43 PM EST [facility] Platelets 76(L) 140 - 400 10E3/uL 04/26/2025 4:43 PM EST [facility] MPV 9.7 7.5 - 11.5 fL 04/26/2025 4:43 PM EST [facility] Whole Blood 04/26/2025 4:16 PM EST 04/26/2025 4:23 PM EST us Gloria Chen MD LAB BLOOD ORDERABLES Final Resul t [facility] [address] [place] [address], [facility] * Phosphorus (04/26/2025 4:16 PM EST) Phosphorus 3.0 2.1 - 4.7 mg/dL 04/26/2025 5:01 PM EST [facility] Plasma 04/26/2025 4:16 PM EST 04/26/2025 4:23 PM EST Gloria Chen MD LAB BLOOD ORDERABLES Final Resul t [facility] [address] [facility]. [address] * Magnesium (04/26/2025 4:16 PM EST) Magnesium 1.8 1.5 - 2.5 mg/dL 04/26/2025 5:01 PM EST [facility] Plasma 04/26/2025 4:16 PM EST 04/26/2025 4:23 PM EST Gloria Chen MD LAB BLOOD ORDERABLES Final Resul t Performing Organization Address [facility] Co de Phone Number [facility] [address] [facility]. [address] * (ABNORMAL) Renal Function Panel w/EGFR (04/26/2025 4:16 PM EST) Sodium 143 133 - 146 mmol/L 04/26/2025 5:01 PM EST [facility] Potassium 4.0 3.5 - 5.3 mmol/L 04/26/2025 5:01 PM EST [facility] Chloride 113(H) 98 - 110 mmol/L 04/26/2025 5:01 PM EST [facility] CO2 23 21 - 33 mmol/L 04/26/2025 5:01 PM EST [facility] Comment:High lactate dehydro genase concentrations in patient samples may cause falsely increased bicarbonate results. If markedly elevated LDH is observed or suspected, please assess results in conjunction with patient`s clinical presentation. In cases of discrepant results, consider evaluating CO2 in with a blood gas order. Anion Gap 7 3 - 16 mmol/L 04/26/2025 5:01 PM EST [facility] BUN 21 7 - 25 mg/dL 04/26/2025 5:01 PM [facility] Creatinine 0.60 0.60 - 1.30 mg/dL 04/26/2025 5:01 PM EST [facility] Glucose 97 70 - 100 mg/dL 04/26/2025 5:01 PM EST [facility] Calcium 7.3(L) 8.6 - 10.3 mg/dL 04/26/2025 5:01 PM EST [facility] Phosphorus 3.0 2.1 - 4.7 mg/dL 04/26/2025 5:01 PM EST [facility] Albumin 2.3(L) 3.5 - 5.7 g/dL 04/26/2025 5:01 PM EST [facility] Osmolality, Calculated 299 278 - 305 mOsm/kg 04/26/2025 5:01 PM EST [facility] EGFR >90 04/26/2025 5:01 PM EST [facility] Comment: As of 2021, the [...] BLOOD ORDERABLES Final Resul t [facility] [address] [facility] [place], [place] [address] * (ABNORMAL) POC Glucose Monitoring Device (04/26/2025 12:50 PM EST) POC Glucose Monitoring Device 113(H) 70 - 100 mg/dL 04/26/2025 12:51 PM EST [facility] Blood 04/26/2025 12:5 0 PM EST 04/26/2025 12:50 PM EST us Ludin Jose MD POINT OF CARE TEST ORDERABLES Fi nal Result [facility] [address] [place] [id number], [facility] * VAS Venous Duplex Upper Right (04/26/2025 [...] at 04/26/2025 8:59 AM EST Yane Wheatley [facility] IMG DIAGNOSTIC IMAGING OR DERABLES Final Result * (ABNORMAL) CBC (04/26/2025 7:47 AM EST) Pathologist [facility] WBC 5.5 3.8 - 10.8 10E3/uL 04/26/2025 8:06 AM EST [facility] RBC 2.89(L) 3.80 - 5.10 10E6/uL 04/26/2025 8:06 AM EST [facility] Hemoglobin 8.9(L) 11.7 - 15.5 g/dL 04/26/2025 8:06 AM EST [facility] Hematocrit 25.8(L) 35.0 - 45.0 % 04/26/2025 8:06 AM EST [facility] MCV 89.3 80.0 - 100.0 fL 04/26/2025 8:06 AM EST [facility] MCH 30.9 27.0 - 33.0 pg 04/26/2025 8:06 AM EST [facility] MCHC 34.6 32.0 - 36.0 g/dL 04/26/2025 8:06 AM [facility] RDW 17.0(H) 11.0 - 15.0 % 04/26/2025 8:06 AM EST [facility] Platelets 70(L) 140 - 400 10E3/uL 04/26/2025 8:06 AM EST [facility] MPV 9.8 7.5 - 11.5 fL 04/26/2025 8:06 AM EST [facility] Whole Blood 04/26/2025 7:47 AM EST 04/26/2025 7:54 AM EST Gloria Chen MD LAB BLOOD ORDERABLES Final Resul t Performing Organization Address City/[facility] Co de Phone Number [facility] [address] [facility]. [address] * Tacrolimus level (04/26/2025 7:47 AM EST) Tacrolimus (LC-MS) 7.1 3.0 - 15.0 ng/mL 04/26/2025 11:55 AM EST [facility] Comment:Performed via liquid chromatography tandem mass spectrometry. Detection limit: 1 ng/mL. Individual target concentrations may vary due to target organ and time after transplant. This test has been developed and its performance characteristics determined by [facility] which is certified under the [...] Final Resul t Performing Organization Address [facility] Co de Phone Number [facility] [address] [place] [address]. [address] * POC Glucose Monitoring Device (04/26/2025 7:44 AM EST) POC Glucose Monitoring Device 76 70 - 100 mg/dL 04/26/2025 7:45 AM EST [facility] Blood 04/26/2025 7:44 AM EST 04/26/2025 7:45 AM EST Ludin Jose MD POINT OF CARE TEST ORDERABLES Fi nal Result Performing Organization Address [facility]/ZIP Co de Phone Number [facility] [address] [place] [address]. [address] * Magnesium (04/26/2025 6:09 AM EST) Magnesium 2.1 1.5 - 2.5 mg/dL 04/26/2025 7:01 AM EST [facility] Plasma 04/26/2025 6:09 AM EST 04/26/2025 6:18 AM EST us Gloria Chen MD LAB BLOOD ORDERABLES Final Resul t [facility] [address] * (ABNORMAL) Renal Function Panel w/EGFR (04/26/2025 6:09 AM EST) Sodium 142 133 - 146 mmol/L 04/26/2025 7:01 AM EST [facility] Potassium 4.0 3.5 - 5.3 mmol/L 04/26/2025 7:01 AM [facility] Chloride 114(H) 98 - 110 mmol/L 04/26/2025 7:01 AM [facility] CO2 22 21 - 33 mmol/L 04/26/2025 7:01 AM [facility] Comment:High lactate dehydro genase concentrations in patient samples may cause falsely increased bicarbonate results. If markedly elevated LDH is observed or suspected, please assess results in conjunction with patient`s clinical presentation. In cases of discrepant results, consider evaluating CO2 in with a blood gas order. Anion Gap 6 3 - 16 mmol/L 04/26/2025 7:01 AM EST [facility] BUN 23 7 - 25 mg/dL 04/26/2025 7:01 AM [facility] Creatinine 0.51(L) 0.60 - 1.30 mg/dL 04/26/2025 7:01 AM [facility] Glucose 75 70 - 100 mg/dL 04/26/2025 7:01 AM [facility] Calcium 7.3(L) 8.6 - 10.3 mg/dL 04/26/2025 7:01 AM [facility] Phosphorus 1.8(L) 2.1 - 4.7 mg/dL 04/26/2025 7:01 AM [facility] Albumin 2.3(L) 3.5 - 5.7 g/dL 04/26/2025 7:01 AM EST [facility] Osmolality, Calculated 296 278 - 305 mOsm/kg 04/26/2025 7:01 AM EST [facility] EGFR >90 04/26/2025 7:01 AM EST [facility] Comment: As of 2021, the [...] Diagnosing Kidney Disease. Am J Kidney Dis. 202. GFR is estimated using creatinine, age, and sex. Patient's values should be interpreted as a trend. Below 90 mL/min/1.73m2, the patient may have renal disease. For additional information: www.kidney.org Plasma 04/26/2025 6:09 AM EST 04/26/2025 6:18 AM EST us Gloria Chen MD LAB BLOOD ORDERABLES Final Resul t [facility] [address] [place], [place] [address] * (ABNORMAL) Hepatic Function Panel (04/26/2025 6:09 AM EST) Total Bilirubin 4.6(H) 0.0 - 1.5 mg/dL 04/26/2025 7:01 AM EST [facility] Bilirubin, Direct 3.20(H) 0.00 - 0.40 mg/dL 04/26/2025 7:01 AM EST [facility] AST 78(H) 13 - 39 U/L 04/26/2025 7:01 AM EST [facility] ALT 117(H) 7 - 52 U/L 04/26/2025 7:01 AM EST [facility] Alkaline Phosphatase 299(H) 36 - 125 U/L 04/26/2025 7:01 AM EST [facility] Total Protein 3.9(L) 6.4 - 8.9 g/dL 04/26/2025 7:01 AM EST [facility] Albumin 2.3(L) 3.5 - 5.7 g/dL 04/26/2025 7:01 AM EST [facility] Bilirubin, Indirect 1.40(H) 0.00 - 1.10 mg/dL 04/26/2025 7:01 AM EST [facility] Plasma 04/26/2025 6:09 AM EST 04/26/2025 6:18 AM EST us Gloria Chen MD LAB BLOOD ORDERABLES Final Resul t Performing Organization Address City/[facility]/ZIP Co de Phone Number [facility] [address] * POC Glucose Monitoring Device (04/26/2025 2:19 AM EST) POC Glucose Monitoring Device 85 70 - 100 mg/dL 04/26/2025 2:20 AM EST [facility] Blood 04/26/2025 2:19 AM EST 04/26/2025 2:20 AM EST Ludin Jose MD POINT OF CARE TEST ORDERABLES Fi nal Result Performing Organization Address City/[facility]/ZIP Co de Phone Number [facility] [address] * Calcium Free, Serum (04/26/2025 12:27 AM EST) Free Calcium, Ser 4.46 4.40 - 5.40 mg/dL 04/26/2025 12:54 AM EST [facility] Comment:Free calcium levels vary inversely with pH by approximately 5% for each 0.1 unit of pH change. Assay results have been normalized to pH = 7.40. Serum 04/26/2025 12:2 7 AM EST 04/26/2025 12:36 AM EST Narrative [facility] - 04/26/2025 12:54 AM EST This test has been developed and its performance characteristics determined by [facility] which is certified under the [...] Final Resul t Performing Organization Address [facility] Co de Phone Number [facility] [address] [place] [address]. [address] * (ABNORMAL) POC Glucose Monitoring Device (04/26/2025 12:13 AM EST) POC Glucose Monitoring Device 60(L) 70 - 100 mg/dL 04/26/2025 12:14 AM EST [facility] Blood 04/26/2025 12:1 3 AM EST 04/26/2025 12:14 AM EST Ludin Jose MD POINT OF CARE TEST ORDERABLES Fi nal Result Performing Organization Address [facility] Co de Phone Number [facility] [address] [place] [address]. [address] * Magnesium (04/26/2025 12:12 AM EST) Magnesium 2.2 1.5 - 2.5 mg/dL 04/26/2025 1:04 AM EST [facility] Plasma 04/26/2025 12:1 2 AM EST 04/26/2025 12:20 AM EST Gloria Chen MD LAB BLOOD ORDERABLES Final Resul t Performing Organization Address [facility] Co de Phone Number [facility] [address] [place] [address]. [address] * (ABNORMAL) Renal Function Panel w/EGFR (04/26/2025 12:12 AM EST) Sodium 141 133 - 146 mmol/L 04/26/2025 1:04 AM [facility] Potassium 4.3 3.5 - 5.3 mmol/L 04/26/2025 1:04 AM [facility] Chloride 113(H) 98 - 110 mmol/L 04/26/2025 1:04 AM [facility] CO2 22 21 - 33 mmol/L 04/26/2025 1:04 AM [facility] Comment:High lactate dehydro genase concentrations in patient samples may cause falsely increased bicarbonate results. If markedly elevated LDH is observed or suspected, please assess results in conjunction with patient`s clinical presentation. In cases of discrepant results, consider evaluating CO2 in with a blood gas order. Anion Gap 6 3 - 16 mmol/L 04/26/2025 1:04 AM [facility] [facility] BUN 26(H) 7 - 25 mg/dL 04/26/2025 1:04 AM [facility] Creatinine 0.53(L) 0.60 - 1.30 mg/dL 04/26/2025 1:04 AM [facility] Glucose 60(L) 70 - 100 mg/dL 04/26/2025 1:04 AM [facility] Calcium 7.5(L) 8.6 - 10.3 mg/dL 04/26/2025 1:04 AM [facility] Phosphorus 2.6 2.1 - 4.7 mg/dL 04/26/2025 1:04 AM [facility] Albumin 2.3(L) 3.5 - 5.7 g/dL 04/26/2025 1:04 AM [facility] Osmolality, Calculated 295 278 - 305 mOsm/kg 04/26/2025 1:04 AM [facility] EGFR >90 04/26/2025 1:04 AM [facility] Comment: As of 2021, [...] BLOOD ORDERABLES Final Resul t [facility] [address] * (ABNORMAL) CBC (04/25/2025 9:01 PM EST) WBC 5.2 3.8 - 10.8 10E3/uL 04/25/2025 9:24 PM EST [facility] RBC 2.69(L) 3.80 - 5.10 10E6/uL 04/25/2025 9:24 PM EST [facility] Hemoglobin 8.3(L) 11.7 - 15.5 g/dL 04/25/2025 9:24 PM EST [facility] Hematocrit 24.0(L) 35.0 - 45.0 % 04/25/2025 9:24 PM EST [facility] MCV 89.5 80.0 - 100.0 fL 04/25/2025 9:24 PM EST [facility] MCH 30.8 27.0 - 33.0 pg 04/25/2025 9:24 PM EST [facility] MCHC 34.4 32.0 - 36.0 g/dL 04/25/2025 9:24 PM EST [facility] RDW 16.6(H) 11.0 - 15.0 % 04/25/2025 9:24 PM EST [facility] Platelets 59(L) 140 - 400 10E3/uL 04/25/2025 9:24 PM EST [facility] MPV 9.4 7.5 - 11.5 fL 04/25/2025 9:24 PM EST [facility] Whole Blood 04/25/2025 9:01 PM EST 04/25/2025 9:16 PM EST Gloria Chen MD LAB BLOOD ORDERABLES Final Resul t [facility] [address] [facility]. [address] * Magnesium (04/25/2025 5:40 PM EST) Magnesium 2.2 1.5 - 2.5 mg/dL 04/25/2025 6:17 PM EST [facility] Plasma 04/25/2025 5:40 PM EST 04/25/2025 5:48 PM EST Gloria Chen MD LAB BLOOD ORDERABLES Final Resul t Performing Organization Address City/[facility] Co de Phone Number [facility] [address] [facility]. [address] * (ABNORMAL) Renal Function Panel w/EGFR (04/25/2025 5:40 PM EST) Sodium 143 133 - 146 mmol/L 04/25/2025 6:17 PM EST [facility] Potassium 4.4 3.5 - 5.3 mmol/L 04/25/2025 6:17 PM EST [facility] Chloride 113(H) 98 - 110 mmol/L 04/25/2025 6:17 PM EST [facility] CO2 22 21 - 33 mmol/L 04/25/2025 6:17 PM EST [facility] Comment:High lactate dehydro genase concentrations in patient samples may cause falsely increased bicarbonate results. If markedly elevated LDH is observed or suspected, please assess results in conjunction with patient`s clinical presentation. In cases of discrepant results, consider evaluating CO2 in with a blood gas order. Anion Gap 8 3 - 16 mmol/L 04/25/2025 6:17 PM EST [facility] BUN 29(H) 7 - 25 mg/dL 04/25/2025 6:17 PM EST [facility] Creatinine 0.59(L) 0.60 - 1.30 mg/dL 04/25/2025 6:17 PM EST [facility] Glucose 61(L) 70 - 100 mg/dL 04/25/2025 6:17 PM EST [facility] Calcium 6.9(L) 8.6 - 10.3 mg/dL 04/25/2025 6:17 PM EST [facility] Phosphorus 2.7 2.1 - 4.7 mg/dL 04/25/2025 6:17 PM EST [facility] Albumin 2.3(L) 3.5 - 5.7 g/dL 04/25/2025 6:17 PM EST [facility] Osmolality, Calculated 300 278 - 305 mOsm/kg 04/25/2025 6:17 PM EST [facility] EGFR >90 04/25/2025 6:17 PM EST [facility] Comment: As of 2021, the [...] BLOOD ORDERABLES Final Resul t [facility] [address] [facility]. [address] * Magnesium (04/25/2025 11:34 AM EST) Magnesium 2.3 1.5 - 2.5 mg/dL 04/25/2025 12:25 PM EST [facility] Plasma 04/25/2025 11:3 4 AM EST 04/25/2025 11:49 AM EST us Gloria Chen MD LAB BLOOD ORDERABLES Final Resul t [facility] [address] [facility]. [address] * (ABNORMAL) Renal Function Panel w/EGFR (04/25/2025 11:34 AM EST) Sodium 143 133 - 146 mmol/L 04/25/2025 12:25 PM EST [facility] Potassium 4.4 3.5 - 5.3 mmol/L 04/25/2025 12:25 PM EST [facility] Chloride 114(H) 98 - 110 mmol/L 04/25/2025 12:25 PM EST [facility] CO2 21 21 - 33 mmol/L 04/25/2025 12:25 PM EST [facility] Comment:High lactate dehydro genase concentrations in patient samples may cause falsely increased bicarbonate results. If markedly elevated LDH is observed or suspected, please assess results in conjunction with patient`s clinical presentation. In cases of discrepant results, consider evaluating CO2 in with a blood gas order. Anion Gap 8 3 - 16 mmol/L 04/25/2025 12:25 PM EST [facility] BUN 31(H) 7 - 25 mg/dL 04/25/2025 12:25 PM EST [facility] Creatinine 0.66 0.60 - 1.30 mg/dL 04/25/2025 12:25 PM EST [facility] Glucose 74 70 - 100 mg/dL 04/25/2025 12:25 PM EST [facility] Calcium 7.1(L) 8.6 - 10.3 mg/dL 04/25/2025 12:25 PM EST [facility] Phosphorus 2.0(L) 2.1 - 4.7 mg/dL 04/25/2025 12:25 PM EST [facility] Albumin 2.3(L) 3.5 - 5.7 g/dL 04/25/2025 12:25 PM EST [facility] Osmolality, Calculated 301 278 - 305 mOsm/kg 04/25/2025 12:25 PM EST [facility] EGFR >90 04/25/2025 12:25 PM EST [facility] Comment: As of 2021, the [...] BLOOD ORDERABLES Final Resul t [facility] [address] [facility] [place] [address], [facility] * US Duplex [id number] Comp (04/25/2025 10:36 AM EST) Anatomical Region [...] EXAM: US ABDOMEN LIMITED EXAM: US DUPLEX [id number] COMPLETE INDICATION: Liver Transplant DATE: 04/25/2025 9:37 [...] EXAM: US ABDOMEN LIMITED EXAM: US DUPLEX [id number] COMPLETE INDICATION: Liver Transplant DATE: 04/25/2025 9:37 [...] 11:02 AM EST us Talita Pena MD [facility] [place] Final Resul t * US [...] EXAM: US ABDOMEN LIMITED EXAM: US DUPLEX [id number] COMPLETE INDICATION: Liver Transplant DATE: 04/25/2025 9:37 [...] EXAM: US ABDOMEN LIMITED EXAM: US DUPLEX [id number] COMPLETE INDICATION: Liver Transplant DATE: 04/25/2025 9:37 [...] MD at 04/25/2025 11:02 AM EST us Tailta Pena MD [facility]LES Final Resul t * (ABNORMAL) CBC (04/25/2025 8:13 AM EST) WBC 5.3 3.8 - 10.8 10E3/uL 04/25/2025 9:29 AM EST [facility] RBC 2.77(L) 3.80 - 5.10 10E6/uL 04/25/2025 9:29 AM EST [facility] Hemoglobin 8.5(L) 11.7 - 15.5 g/dL 04/25/2025 9:29 AM EST [facility] Hematocrit 24.6(L) 35.0 - 45.0 % 04/25/2025 9:29 AM EST [facility] MCV 88.7 80.0 - 100.0 fL 04/25/2025 9:29 AM EST [facility] MCH 30.6 27.0 - 33.0 pg 04/25/2025 9:29 AM EST [facility] MCHC 34.5 32.0 - 36.0 g/dL 04/25/2025 9:29 AM EST [facility] RDW 17.2(H) 11.0 - 15.0 % 04/25/2025 9:29 AM EST [facility] Platelets 44(L) 140 - 400 10E3/uL 04/25/2025 9:29 AM EST [facility] Comment:CNV MPV 10.2 7.5 - 11.5 fL 04/25/2025 9:29 AM EST [facility] Whole Blood 04/25/2025 8:13 AM EST 04/25/2025 8:25 AM EST Gloria Chen MD LAB BLOOD ORDERABLES Final Resul t Performing Organization Address City/[facility] Co de Phone Number [facility] [address] [facility]. [address] * Lactic acid, ABG (04/25/2025 8:13 AM EST) Lactate, Art 0.6 0.5 - 1.6 mmol/L 04/25/2025 3:13 PM EST [facility] Blood, Arterial 04/25/2025 8 :13 AM EST 04/25/2025 3:11 PM EST Lynn Gage DO LAB BLOOD ORDERABLES Final Resul t Performing Organization Address [facility] Co de Phone Number [facility] [address] [facility]. [address] * Calcium Ionized, Whole Blood (04/25/2025 8:13 AM EST) Free Calcium, WB 4.69 4.50 - 5.30 mg/dL 04/25/2025 3:13 PM EST [facility] Blood, Arterial 04/25/2025 8 :13 AM EST 04/25/2025 3:11 PM EST Lynn Gage DO LAB BLOOD ORDERABLES Final Resul t Performing Organization Address [facility] Co de Phone Number [facility] [address] [facility]. [address] * (ABNORMAL) Blood gas, arterial (04/25/2025 8:13 AM EST) O2 Sat, Arterial 100 04/25/2025 8:21 AM EST [facility] FIO2 1L 04/25/2025 8:21 AM EST [facility] pH, Arterial 7.39 7.35 - 7.45 04/25/2025 8:21 AM EST [facility] pCO2, Arterial 38 35 - 45 mm Hg 04/25/2025 8:21 AM EST [facility] pO2, Arterial 133(H) 80 - 100 mm Hg 04/25/2025 8:21 AM EST [facility] HCO3, Arterial 24 22 - 26 mmol/L 04/25/2025 8:21 AM EST [facility] CO2 Content,Arteri al 24 23 - 27 mmol/L 04/25/2025 8:21 AM EST [facility] Base Excess, Arterial -1.8 -2.0 - 3.0 mmol/L 04/25/2025 8:21 AM EST [facility] %HBO2, Arterial 96.5 95.0 - 98.0 % 04/25/2025 8:21 AM EST [facility] Carboxyhemoglo bin, Arterial 2.4 % 04/25/2025 8:21 AM EST [facility] Comment: CARBOXYHEMOGLOBIN (CO) REFERENCE RANGES: Non-Smokers: <2 % Smokers: <8 % TOXIC: >20 % Methemoglobin, Arterial 1.1 0.0 - 1.5 % 04/25/2025 8:21 AM EST [facility] Blood, Arterial 04/25/2025 8 :13 AM EST 04/25/2025 8:18 AM EST us Lynn Gage DO LAB BLOOD ORDERABLES Final Resul t [facility] [address] [place] [address], [facility] * Tacrolimus level (04/25/2025 8:13 AM EST) [facility] Tacrolimus (LC-MS) 6.0 3.0 - 15.0 ng/mL 04/25/2025 1:48 PM EST [facility] Comment:Performed via liquid chromatography tandem mass spectrometry. Detection limit: 1 ng/mL. Individual target concentrations may vary due to target organ and time after transplant. This test has been developed and its performance characteristics determined by [facility] which is certified under the [...] ORDERABLES Final Resul t Performing Organization Address City/[facility]/ZIP Co de Phone Number [facility] [address] * Magnesium (04/25/2025 5:18 AM EST) Magnesium 2.4 1.5 - 2.5 mg/dL 04/25/2025 5:43 AM EST [facility] Plasma 04/25/2025 5:18 AM EST 04/25/2025 5:22 AM EST Gloria Chen MD LAB BLOOD ORDERABLES Final Resul t Performing Organization Address [facility] de Phone Number [facility] [address] [facility]. [address] * (ABNORMAL) Renal Function Panel w/EGFR (04/25/2025 5:18 AM EST) Sodium 142 133 - 146 mmol/L 04/25/2025 5:43 AM EST [facility] Potassium 4.2 3.5 - 5.3 mmol/L 04/25/2025 5:43 AM EST [facility] Chloride 113(H) 98 - 110 mmol/L 04/25/2025 5:43 AM EST [facility] CO2 26 21 - 33 mmol/L 04/25/2025 5:43 AM EST [facility] Comment:High lactate dehydro genase concentrations in patient samples may cause falsely increased bicarbonate results. If markedly elevated LDH is observed or suspected, please assess results in conjunction with patient`s clinical presentation. In cases of discrepant results, consider evaluating CO2 in with a blood gas order. Anion Gap 3 3 - 16 mmol/L 04/25/2025 5:43 AM EST [facility] BUN 35(H) 7 - 25 mg/dL 04/25/2025 5:43 AM EST [facility] Creatinine 0.80 0.60 - 1.30 mg/dL 04/25/2025 5:43 AM EST [facility] Glucose 73 70 - 100 mg/dL 04/25/2025 5:43 AM EST [facility] Calcium 7.0(L) 8.6 - 10.3 mg/dL 04/25/2025 5:43 AM EST [facility] Phosphorus 2.8 2.1 - 4.7 mg/dL 04/25/2025 5:43 AM EST [facility] Albumin 2.3(L) 3.5 - 5.7 g/dL 04/25/2025 5:43 AM EST [facility] Osmolality, Calculated 301 278 - 305 mOsm/kg 04/25/2025 5:43 AM EST [facility] EGFR >90 04/25/2025 5:43 AM EST [facility] Comment: As of 2021, the [...] BLOOD ORDERABLES Final Resul t [facility] [address] * (ABNORMAL) CBC (04/25/2025 5:18 AM EST) WBC 4.9 3.8 - 10.8 10E3/uL 04/25/2025 5:45 AM EST [facility] RBC 2.68(L) 3.80 - 5.10 10E6/uL 04/25/2025 5:45 AM EST [facility] Hemoglobin 8.1(L) 11.7 - 15.5 g/dL 04/25/2025 5:45 AM EST [facility] Hematocrit 23.6(L) 35.0 - 45.0 % 04/25/2025 5:45 AM EST [facility] MCV 88.2 80.0 - 100.0 fL 04/25/2025 5:45 AM EST [facility] MCH 30.2 27.0 - 33.0 pg 04/25/2025 5:45 AM EST [facility] MCHC 34.2 32.0 - 36.0 g/dL 04/25/2025 5:45 AM EST [facility] RDW 16.8(H) 11.0 - 15.0 % 04/25/2025 5:45 AM EST [facility] Platelets 42(L) 140 - 400 10E3/uL 04/25/2025 5:45 AM EST [facility] Comment: CNV Specimen checked for clots. None detected. MPV 9.1 7.5 - 11.5 fL 04/25/2025 5:45 AM EST [facility] Whole Blood 04/25/2025 5:18 AM EST 04/25/2025 5:22 AM EST us Julius Becerra MD LAB BLOOD ORDERABLES Final Resul t [facility] [address] * (ABNORMAL) Hepatic Function Panel (04/25/2025 5:18 AM EST) Total Bilirubin 4.6(H) 0.0 - 1.5 mg/dL 04/25/2025 5:43 AM EST [facility] Bilirubin, Direct 3.53(H) 0.00 - 0.40 mg/dL 04/25/2025 5:43 AM EST [facility] AST 100(H) 13 - 39 U/L 04/25/2025 5:43 AM EST [facility] ALT 128(H) 7 - 52 U/L 04/25/2025 5:43 AM EST [facility] Alkaline Phosphatase 182(H) 36 - 125 U/L 04/25/2025 5:43 AM EST [facility] Total Protein 3.8(L) 6.4 - 8.9 g/dL 04/25/2025 5:43 AM EST [facility] Albumin 2.3(L) 3.5 - 5.7 g/dL 04/25/2025 5:43 AM EST [facility] Bilirubin, Indirect 1.07 0.00 - 1.10 mg/dL 04/25/2025 5:43 AM EST [facility] Plasma 04/25/2025 5:18 AM EST 04/25/2025 5:22 AM EST Gloria Chen MD LAB BLOOD ORDERABLES Final Resul t [facility] [address] [facility]. [address] * Protime-INR, STAT (04/25/2025 5:18 AM EST) Protime 14.3 12.1 - 15.1 seconds 04/25/2025 5:40 AM EST [facility] INR 1.1 0.9 - 1.1 04/25/2025 5:40 AM EST [facility] Comment: RECOMMENDED THERAPEUTIC RANGES USING INR : Stable oral anticoagulant therapy: 2.0 - 3.0 Mechanical prosthetic heart valve: 2.5 - 3.5 Recurrent acute myocardial infarction: 2.5 - 3.5 Plasma 04/25/2025 5:18 AM EST 04/25/2025 5:22 AM EST us Lynn Gage DO LAB BLOOD ORDERABLES Final Resul t [facility] [address] [facility]. [address] * POC Glucose Monitoring Device (04/25/2025 5:17 AM EST) Pathologist [facility] POC Glucose Monitoring Device 74 70 - 100 mg/dL 04/25/2025 5:19 AM EST [facility] Blood 04/25/2025 5:17 AM EST 04/25/2025 5:19 AM EST Ludin Jose MD POINT OF CARE TEST ORDERABLES Fi nal Result [facility] [address] * Magnesium (04/25/2025 12:05 AM EST) Pathologist [facility] Magnesium 2.5 1.5 - 2.5 mg/dL 04/25/2025 1:02 AM EST [facility] Plasma 04/25/2025 12:0 5 AM EST 04/25/2025 12:09 AM EST Gloria Chen MD LAB BLOOD ORDERABLES Final Resul t [facility] [address] [facility]. [address] * (ABNORMAL) Renal Function Panel w/EGFR (04/25/2025 12:05 AM EST) Pathologist [facility] Sodium 142 133 - 146 mmol/L 04/25/2025 1:02 AM EST [facility] Potassium 4.5 3.5 - 5.3 mmol/L 04/25/2025 1:02 AM EST [facility] Chloride 112(H) 98 - 110 mmol/L 04/25/2025 1:02 AM EST [facility] CO2 25 21 - 33 mmol/L 04/25/2025 1:02 AM EST [facility] Comment:High lactate dehydro genase concentrations in patient samples may cause falsely increased bicarbonate results. If markedly elevated LDH is observed or suspected, please assess results in conjunction with patient`s clinical presentation. In cases of discrepant results, consider evaluating CO2 in with a blood gas order. Anion Gap 5 3 - 16 mmol/L 04/25/2025 1:02 AM EST [facility] BUN 34(H) 7 - 25 mg/dL 04/25/2025 1:02 AM [facility] Creatinine 0.85 0.60 - 1.30 mg/dL 04/25/2025 1:02 AM EST [facility] Glucose 74 70 - 100 mg/dL 04/25/2025 1:02 AM EST [facility] Calcium 7.3(L) 8.6 - 10.3 mg/dL 04/25/2025 1:02 AM EST [facility] Phosphorus 3.3 2.1 - 4.7 mg/dL 04/25/2025 1:02 AM [facility] Albumin 2.3(L) 3.5 - 5.7 g/dL 04/25/2025 1:02 AM EST [facility] Osmolality, Calculated 300 278 - 305 mOsm/kg 04/25/2025 1:02 AM EST [facility] EGFR >90 04/25/2025 1:02 AM [facility] Comment: As of 2021, [...] BLOOD ORDERABLES Final Resul t [facility] [address] [facility]. [address] * (ABNORMAL) CBC (04/25/2025 12:05 AM EST) WBC 6.1 3.8 - 10.8 10E3/uL 04/25/2025 12:38 AM EST [facility] RBC 2.79(L) 3.80 - 5.10 10E6/uL 04/25/2025 12:38 AM EST [facility] Hemoglobin 8.4(L) 11.7 - 15.5 g/dL 04/25/2025 12:38 AM EST [facility] Hematocrit 24.5(L) 35.0 - 45.0 % 04/25/2025 12:38 AM EST [facility] MCV 87.8 80.0 - 100.0 fL 04/25/2025 12:38 AM EST [facility] MCH 30.2 27.0 - 33.0 pg 04/25/2025 12:38 AM EST [facility] MCHC 34.4 32.0 - 36.0 g/dL 04/25/2025 12:38 AM EST [facility] RDW 16.9(H) 11.0 - 15.0 % 04/25/2025 12:38 AM EST [facility] Platelets 43(L) 140 - 400 10E3/uL 04/25/2025 12:38 AM EST [facility] Comment: CNV Specimen checked for clots. None detected. MPV 9.6 7.5 - 11.5 fL 04/25/2025 12:38 AM EST [facility] Whole Blood 04/25/2025 12:0 5 AM EST 04/25/2025 12:09 AM EST us Julius Becerra MD LAB BLOOD ORDERABLES Final Resul t [facility] [address] [place] [address] * POC Glucose Monitoring Device (04/25/2025 12:04 AM EST) POC Glucose Monitoring Device 79 70 - 100 mg/dL 04/25/2025 12:05 AM EST [facility] Blood 04/25/2025 12:0 4 AM EST 04/25/2025 12:05 AM EST Ludin Jose MD POINT OF CARE TEST ORDERABLES Fi nal Result [facility] [address] * Magnesium (04/24/2025 6:40 PM EST) [facility] Magnesium 2.4 1.5 - 2.5 mg/dL 04/24/2025 7:19 PM EST [facility] Plasma 04/24/2025 6:40 PM EST 04/24/2025 6:44 PM EST Gloria Chen MD LAB BLOOD ORDERABLES Final Resul t [facility] [address] * (ABNORMAL) Renal Function Panel w/EGFR (04/24/2025 6:40 PM EST) [facility] Sodium 141 133 - 146 mmol/L 04/24/2025 7:19 PM EST [facility] Potassium 4.6 3.5 - 5.3 mmol/L 04/24/2025 7:19 PM EST [facility] Chloride 112(H) 98 - 110 mmol/L 04/24/2025 7:19 PM EST [facility] CO2 24 21 - 33 mmol/L 04/24/2025 7:19 PM EST [facility] Comment:High lactate dehydro genase concentrations in patient samples may cause falsely increased bicarbonate results. If markedly elevated LDH is observed or suspected, please assess results in conjunction with patient`s clinical presentation. In cases of discrepant results, consider evaluating CO2 in with a blood gas order. Anion Gap 5 3 - 16 mmol/L 04/24/2025 7:19 PM EST [facility] BUN 33(H) 7 - 25 mg/dL 04/24/2025 7:19 PM EST [facility] Creatinine 0.93 0.60 - 1.30 mg/dL 04/24/2025 7:19 PM EST [facility] Glucose 100 70 - 100 mg/dL 04/24/2025 7:19 PM EST [facility] Calcium 7.3(L) 8.6 - 10.3 mg/dL 04/24/2025 7:19 PM EST [facility] Phosphorus 3.5 2.1 - 4.7 mg/dL 04/24/2025 7:19 PM EST [facility] Albumin 2.4(L) 3.5 - 5.7 g/dL 04/24/2025 7:19 PM EST [facility] Osmolality, Calculated 299 278 - 305 mOsm/kg 04/24/2025 7:19 PM EST [facility] EGFR 82 04/24/2025 7:19 PM EST [facility] Comment:As of 2021, the estimated [...] BLOOD ORDERABLES Final Resul t [facility] [address] [place] [place] [address], [facility] * (ABNORMAL) CBC (04/24/2025 6:40 PM EST) WBC 7.2 3.8 - 10.8 10E3/uL 04/24/2025 7:14 PM EST [facility] RBC 2.91(L) 3.80 - 5.10 10E6/uL 04/24/2025 7:14 PM EST [facility] Hemoglobin 8.9(L) 11.7 - 15.5 g/dL 04/24/2025 7:14 PM EST [facility] Hematocrit 25.4(L) 35.0 - 45.0 % 04/24/2025 7:14 PM EST [facility] MCV 87.2 80.0 - 100.0 fL 04/24/2025 7:14 PM EST [facility] MCH 30.5 27.0 - 33.0 pg 04/24/2025 7:14 PM EST [facility] MCHC 35.0 32.0 - 36.0 g/dL 04/24/2025 7:14 PM EST [facility] RDW 17.2(H) 11.0 - 15.0 % 04/24/2025 7:14 PM EST [facility] Platelets 47(L) 140 - 400 10E3/uL 04/24/2025 7:14 PM EST [facility] Comment:CNV MPV 10.1 7.5 - 11.5 fL 04/24/2025 7:14 PM EST [facility] Whole Blood 04/24/2025 6:40 PM EST 04/24/2025 6:44 PM EST us Julius Becerra MD LAB BLOOD ORDERABLES [facility] [facility] [address] * POC Glucose Monitoring Device (04/24/2025 6:38 PM EST) POC Glucose Monitoring Device 97 70 - 100 mg/dL 04/24/2025 6:38 PM EST [facility] Blood 04/24/2025 6:38 PM EST 04/24/2025 6:38 PM EST us Ludin Jose MD POINT OF CARE TEST ORDERABLES Fi nal Result [facility] [address] [place] [address], [facility] * (ABNORMAL) Blood Gas, Arterial, STAT (04/24/2025 12:29 PM EST) O2 Sat, Arterial 99 04/24/2025 12:36 PM EST [facility] FIO2 3L 04/24/2025 12:36 PM EST [facility] pH, Arterial 7.37 7.35 - 7.45 04/24/2025 12:36 PM EST [facility] pCO2, Arterial 39 35 - 45 mm Hg 04/24/2025 12:36 PM EST [facility] pO2, Arterial 109(H) 80 - 100 mm Hg 04/24/2025 12:36 PM EST [facility] HCO3, Arterial 23 22 - 26 mmol/L 04/24/2025 12:36 PM EST [facility] CO2 Content,Arteri al 24 23 - 27 mmol/L 04/24/2025 12:36 PM EST [facility] Base Excess, Arterial -2.5(L) -2.0 - 3.0 mmol/L 04/24/2025 12:36 PM EST [facility] %HBO2, Arterial 97.1 95.0 - 98.0 % 04/24/2025 12:36 PM EST [facility] Carboxyhemoglo bin, Arterial 1.5 % 04/24/2025 12:36 PM EST [facility] Comment: CARBOXYHEMOGLOBIN (CO) REFERENCE RANGES: Non-Smokers: <2 % Smokers: <8 % TOXIC: >20 % Methemoglobin, Arterial 0.0 0.0 - 1.5 % 04/24/2025 12:36 PM EST [facility] Blood, Arterial 04/24/2025 1 2:29 PM EST 04/24/2025 12:33 PM EST us Judith Murcia MD LAB BLOOD ORDERABLES Final Res ult [facility] [address] * Magnesium (04/24/2025 12:29 PM EST) Magnesium 2.4 1.5 - 2.5 mg/dL 04/24/2025 1:30 PM EST [facility] Plasma 04/24/2025 12:2 9 PM EST 04/24/2025 12:55 PM EST us Gloria Chen MD LAB BLOOD ORDERABLES Final Resul t [facility] [address] [place] [address], [facility] * (ABNORMAL) Renal Function Panel w/EGFR (04/24/2025 12:29 PM EST) Sodium 140 133 - 146 mmol/L 04/24/2025 1:30 PM EST [facility] Potassium 4.6 3.5 - 5.3 mmol/L 04/24/2025 1:30 PM EST [facility] Chloride 110 98 - 110 mmol/L 04/24/2025 1:30 PM [facility] CO2 24 21 - 33 mmol/L 04/24/2025 1:30 PM [facility] Comment:High lactate dehydro genase concentrations in patient samples may cause falsely increased bicarbonate results. If markedly elevated LDH is observed or suspected, please assess results in conjunction with patient`s clinical presentation. In cases of discrepant results, consider evaluating CO2 in with a blood gas order. Anion Gap 6 3 - 16 mmol/L 04/24/2025 1:30 PM EST [facility] BUN 38(H) 7 - 25 mg/dL 04/24/2025 1:30 PM [facility] Creatinine 1.21 0.60 - 1.30 mg/dL 04/24/2025 1:30 PM EST [facility] Glucose 117(H) 70 - 100 mg/dL 04/24/2025 1:30 PM [facility] Calcium 7.3(L) 8.6 - 10.3 mg/dL 04/24/2025 1:30 PM [facility] Phosphorus 4.0 2.1 - 4.7 mg/dL 04/24/2025 1:30 PM [facility] Albumin 2.4(L) 3.5 - 5.7 g/dL 04/24/2025 1:30 PM [facility] Osmolality, Calculated 300 278 - 305 mOsm/kg 04/24/2025 1:30 PM EST [facility] EGFR 60 04/24/2025 1:30 PM EST [facility] Comment:As of 2021, the estimated [...] BLOOD ORDERABLES Final Resul t [facility] [address] [id number], [facility] * (ABNORMAL) CBC (04/24/2025 12:29 PM EST) WBC 8.8 3.8 - 10.8 10E3/uL 04/24/2025 1:11 PM EST [facility] RBC 2.98(L) 3.80 - 5.10 10E6/uL 04/24/2025 1:11 PM EST [facility] Hemoglobin 9.1(L) 11.7 - 15.5 g/dL 04/24/2025 1:11 PM EST [facility] Hematocrit 25.9(L) 35.0 - 45.0 % 04/24/2025 1:11 PM EST [facility] MCV 87.0 80.0 - 100.0 fL 04/24/2025 1:11 PM EST [facility] MCH 30.6 27.0 - 33.0 pg 04/24/2025 1:11 PM EST [facility] MCHC 35.2 32.0 - 36.0 g/dL 04/24/2025 1:11 PM EST [facility] RDW 17.0(H) 11.0 - 15.0 % 04/24/2025 1:11 PM EST [facility] Platelets 49(L) 140 - 400 10E3/uL 04/24/2025 1:11 PM EST [facility] Comment:CNV MPV 9.7 7.5 - 11.5 fL 04/24/2025 1:11 PM EST [facility] Whole Blood 04/24/2025 12:2 9 PM EST 04/24/2025 12:55 PM EST Julius Becerra MD LAB BLOOD ORDERABLES Final Resul t [facility] [address] [facility]. [address] * (ABNORMAL) POC Glucose Monitoring Device (04/24/2025 12:25 PM EST) POC Glucose Monitoring Device 112(H) 70 - 100 mg/dL 04/24/2025 12:33 PM EST [facility] Blood 04/24/2025 12:2 5 PM EST 04/24/2025 12:32 PM EST Ludin Jose MD POINT OF CARE TEST ORDERABLES Fi nal Result Performing Organization Address City/[facility]/ZIP Co de Phone Number [facility] [address] * X-ray Portable Chest (04/24/2025 8:52 [...] Chavarria DO at 04/24/2025 1:10 PM EST us Moe Luis MD [facility] ORDERABLES Final Result * Tacrolimus level (04/24/2025 7:57 AM EST) Tacrolimus (LC-MS) 10.5 3.0 - 15.0 ng/mL 04/24/2025 12:56 PM EST [facility] Comment:Performed via liquid chromatography tandem mass spectrometry. Detection limit: 1 ng/mL. Individual target concentrations may vary due to target organ and time after transplant. This test has been developed and its performance characteristics determined by [facility] which is certified under the [...] 7:57 AM EST 04/24/2025 8:02 AM EST us Gloria Chen MD LAB BLOOD ORDERABLES Final Resul t [facility] [address] * Prepare RBC, leukoreduced, 6 Units (04/24/2025 6:15 AM EST) Product Code D7125A88 [facility] Unit Number [id number] HCLL Dispense Status Presumed Transfused_PT HCLL Blood Expiration Date HCLL Coding System TNEC233 HCLL Product Code T6547J86 HCLL Unit Number [id number] HCLL Dispense Status Presumed Transfused_PT HCLL Blood Expiration Date HCLL Coding System FBQZ735 HCLL Blood Bank Product us Moe Luis MD BLOOD BANK PRODUCT ORD ERABLES Final Result HCLL * Prepare RBC, leukoreduced, 4 Units (04/24/2025 6:15 AM EST) Product Code C6396E37 [facility] Unit Number [id number] HCLL Dispense Status Presumed Transfused_PT HCLL Blood Expiration Date HCLL Coding System NHDS246 HCLL Product Code T5807I90 HCLL Unit Number [id number] HCLL Dispense Status Released from Crossmatch_RE HCLL Blood Expiration Date HCLL Coding System ZCQJ649 HCLL Product Code O2143A41 HCLL Unit Number [id number] HCLL Dispense Status Released from Crossmatch_RE HCLL Blood Expiration Date HCLL Coding System SLDQ570 HCLL Product Code Q8556H35 HCLL Unit Number [id number] HCLL Dispense Status Released from Crossmatch_RE HCLL Blood Expiration Date HCLL Coding System LMBS538 HCLL Product Code Y8498S08 HCLL Unit Number [id number] HCLL Dispense Status Released from Crossmatch_RE HCLL Blood Expiration Date HCLL Coding System TUSS249 HCLL Product Code R3857R88 HCLL Unit Number [id number] HCLL Dispense Status Released from Crossmatch_RE HCLL Blood Expiration Date HCLL Coding System CJWU431 HCLL Blood Bank Product us Catracho Hui MD BLOOD BANK PRODUCT ORDERAB LES Final Result HC[facility] * Prepare Platelets, leukoreduced, 1 Units (04/24/2025 6:15 AM EST) Product Code E7025J46 HCLL Unit Number [id number] HCLL Dispense Status Presumed Transfused_PT HCLL Blood Expiration Date HCLL Coding System AWKQ223 HCLL Blood Bank Product us Sergey Altman MD BLOOD BANK PRODUCT O RDERABLES Final Result Performing Organization Address [facility] Co de Phone Number HCLL * Prepare Cryoprecipitate, 1 Units (04/24/2025 6:15 AM EST) Product Code C5605O55 HCLL Unit Number [id number] HCLL Dispense Status Presumed Transfused_PT HCLL Blood Expiration Date HCLL Coding System QPYT195 HCLL Product Code T8617B06 HCLL Unit Number [id number] HCLL Dispense Status Presumed Transfused_PT HCLL Blood Expiration Date HCLL Coding System PRFF255 HCLL Blood Bank Product Sergey Altman MD BLOOD BANK PRODUCT O RDERABLES Final Result Performing Organization Address City/[facility]/ZIP Co de Phone Number HCLL * Prepare Cryoprecipitate, 1 Units (04/24/2025 6:15 AM EST) Product Code Y4493B88 HCLL Unit Number [id number] HCLL Dispense Status Presumed Transfused_PT HCLL Blood Expiration Date HCLL Coding System PIFS493 HCLL Product Code P3473K55 HCLL Unit Number [id number] HCLL Dispense Status Presumed Transfused_PT HCLL Blood Expiration Date HCLL Coding System EOCH750 HCLL Blood Bank Product Sergey Altman MD BLOOD BANK PRODUCT O RDERABLES Final Result Performing Organization Address City/[facility]/ZIP Co de Phone Number HCLL * Prepare Fresh Frozen Plasma, 2 Units (04/24/2025 6:15 AM EST) Product Code M6747N68 HCLL Unit Number [id number] HCLL Dispense Status Presumed Transfused_PT HCLL Blood Expiration Date HCLL Coding System FLMH537 HCLL Product Code K1410K96 HCLL Unit Number [id number] HCLL Dispense Status Presumed Transfused_PT HCLL Blood Expiration Date HCLL Coding System NZJY658 HCLL Blood Bank Product Sergey Altman MD BLOOD BANK PRODUCT O RDERABLES Final Result HC[facility] * Prepare RBC, leukoreduced, 3 Units (04/24/2025 6:15 AM EST) Product Code U7584E00 HCLL Unit Number [id number] HCLL Dispense Status Presumed Transfused_PT HCLL Blood Expiration Date HCLL Coding System RPOP140 HCLL Product Code V2959B92 HCLL Unit Number [id number] HCLL Dispense Status Presumed Transfused_PT HCLL Blood Expiration Date HCLL Coding System MUKT210 HCLL Product Code Z1510F95 HCLL Unit Number [id number] HCLL Dispense Status Released from Crossmatch_RE HCLL Blood Expiration Date HCLL Coding System CXAV720 HCLL Blood Bank Product Sergey Altman MD BLOOD BANK PRODUCT O RDERABLES Final Result Performing Organization Address City/[facility]/ZIP Co de Phone Number HCLL * Prepare RBC, leukoreduced, 1 Units (04/24/2025 6:15 AM EST) Product Code P6715D14 HCLL Unit Number [id number] HCLL Dispense Status Presumed Transfused_PT HCLL Blood Expiration Date HCLL Coding System DCRK549 HCLL Blood Bank Product Sergey Altman MD BLOOD BANK PRODUCT O RDERABLES Final Result Performing Organization Address [facility] de Phone Number HC[facility] * Prepare RBC, leukoreduced, 2 Units (04/24/2025 6:15 AM EST) Product Code K1562G16 HCLL Unit Number [id number] HCLL Dispense Status Presumed Transfused_PT HCLL Blood Expiration Date HCLL Coding System GFFV676 HCLL Product Code H0189Y43 HCLL Unit Number [id number] HCLL Dispense Status Presumed Transfused_PT HCLL Blood Expiration Date HCLL Coding System IZCU196 HCLL Blood Bank Product Sergey Altman MD BLOOD BANK PRODUCT O RDERABLES Final Result Performing Organization Address City/[facility] Co de Phone Number HCLL * (ABNORMAL) Blood Gas, Arterial, STAT (04/24/2025 5:43 AM EST) O2 Sat, Arterial 100 04/24/2025 5:49 AM EST [facility] FIO2 40% 04/24/2025 5:49 AM EST [facility] pH, Arterial 7.37 7.35 - 7.45 04/24/2025 5:49 AM EST [facility] pCO2, Arterial 40 35 - 45 mm Hg 04/24/2025 5:49 AM EST [facility] pO2, Arterial 107(H) 80 - 100 mm Hg 04/24/2025 5:49 AM EST [facility] HCO3, Arterial 23 22 - 26 mmol/L 04/24/2025 5:49 AM EST [facility] CO2 Content,Arteri al 24 23 - 27 mmol/L 04/24/2025 5:49 AM EST [facility] Base Excess, Arterial -2.0 -2.0 - 3.0 mmol/L 04/24/2025 5:49 AM EST [facility] %HBO2, Arterial 97.3 95.0 - 98.0 % 04/24/2025 5:49 AM EST [facility] Carboxyhemoglo bin, Arterial 2.7 % 04/24/2025 5:49 AM EST [facility] Comment: CARBOXYHEMOGLOBIN (CO) REFERENCE RANGES: Non-Smokers: <2 % Smokers: <8 % TOXIC: >20 % Methemoglobin, Arterial 0.0 0.0 - 1.5 % 04/24/2025 5:49 AM EST [facility] Blood, Arterial 04/24/2025 5 :43 AM EST 04/24/2025 5:46 AM EST us Judith Murcia MD LAB BLOOD ORDERABLES Final Res ult Performing Organization Address City/State/[facility] Co de Phone Number [facility] [address] * (ABNORMAL) POC Glucose Monitoring Device (04/24/2025 4:38 AM EST) POC Glucose Monitoring Device 103(H) 70 - 100 mg/dL 04/24/2025 4:39 AM EST [facility] Blood 04/24/2025 4:38 AM EST 04/24/2025 4:39 AM EST us Ludin Jose MD POINT OF CARE TEST ORDERABLES Fi nal Result Performing Organization Address [facility]/ZIP Co de Phone Number [facility] [address] [facility]. [address] * Protime-INR, STAT (04/24/2025 4:36 AM EST) Protime 14.7 12.1 - 15.1 seconds 04/24/2025 5:13 AM EST [facility] INR 1.1 0.9 - 1.1 04/24/2025 5:13 AM EST [facility] Comment: RECOMMENDED THERAPEUTIC RANGES USING INR : Stable oral anticoagulant therapy: 2.0 - 3.0 Mechanical prosthetic heart valve: 2.5 - 3.5 Recurrent acute myocardial infarction: 2.5 - 3.5 Plasma 04/24/2025 4:36 AM EST 04/24/2025 4:44 AM EST us Judith Murcia MD LAB BLOOD ORDERABLES Final Res ult Performing Organization Address [facility] Co de Phone Number [facility] [address] [facility]. [address] * TEG-Bypass/ECMO/Liver HN (Factor function, Platelet/Fibrin Clot Strength w/Clot Breakdown, Heparinase In All Channels) (04/24/2025 4:36 AM EST) Citrated Kaolin Reaction Time (TEGECMOLIVER) 6.2 4.6 - 9.1 minutes 04/24/2025 6:00 AM EST [facility] Citrated Kaolin W/Heparinase Reaction Time (TEGECMOLIVER) 5.3 4.3 - 8.3 minutes 04/24/2025 6:00 AM EST [facility] Citrated Kaolin Maximum Amplitude (TEGECMOLIVER) 58.2 52.0 - 69.0 mm 04/24/2025 6:00 AM EST [facility] Citrated Functional Fibrinogen W/Heparinase Maximum Amplitude(TEGEC MOLIVER) 19.2 15.0 - 34.0 mm 04/24/2025 6:00 AM EST [facility] Citrated Rapid Teg W/Heparinase Maximum Amplitude (TEGECMOLIVER) 55.6 53.0 - 69.0 mm 04/24/2025 6:00 AM EST [facility] Citrated Kaolin w/Heparinase Percent Lysis (TEGECMOLIVER) 0.0 0.0 - 3.2 % 04/24/2025 6:00 AM EST [facility] Whole Blood (Citrate) 04/24/2025 4:36 AM EST 04/24/2025 4:44 AM EST Julius Becerra MD LAB BLOOD ORDERABLES Final Resul t [facility] [address] [facility]. [address] * Magnesium (04/24/2025 4:36 AM EST) Magnesium 2.4 1.5 - 2.5 mg/dL 04/24/2025 5:16 AM EST [facility] Plasma 04/24/2025 4:36 AM EST 04/24/2025 4:44 AM EST Gloria Chen MD LAB BLOOD ORDERABLES Final Resul t Performing Organization Address [facility] Co de Phone Number [facility] [address] [facility]. [address] * (ABNORMAL) Renal Function Panel w/EGFR (04/24/2025 4:36 AM EST) Sodium 139 133 - 146 mmol/L 04/24/2025 5:16 AM EST [facility] Potassium 4.9 3.5 - 5.3 mmol/L 04/24/2025 5:16 AM EST [facility] Chloride 108 98 - 110 mmol/L 04/24/2025 5:16 AM EST [facility] CO2 26 21 - 33 mmol/L 04/24/2025 5:16 AM EST [facility] Comment:High lactate dehydro genase concentrations in patient samples may cause falsely increased bicarbonate results. If markedly elevated LDH is observed or suspected, please assess results in conjunction with patient`s clinical presentation. In cases of discrepant results, consider evaluating CO2 in with a blood gas order. Anion Gap 5 3 - 16 mmol/L 04/24/2025 5:16 AM EST [facility] BUN 38(H) 7 - 25 mg/dL 04/24/2025 5:16 AM EST [facility] Creatinine 1.25 0.60 - 1.30 mg/dL 04/24/2025 5:16 AM EST [facility] Glucose 99 70 - 100 mg/dL 04/24/2025 5:16 AM EST [facility] Calcium 7.6(L) 8.6 - 10.3 mg/dL 04/24/2025 5:16 AM EST [facility] Phosphorus 5.0(H) 2.1 - 4.7 mg/dL 04/24/2025 5:16 AM EST [facility] Albumin 2.4(L) 3.5 - 5.7 g/dL 04/24/2025 5:16 AM EST [facility] Osmolality, Calculated 297 278 - 305 mOsm/kg 04/24/2025 5:16 AM EST [facility] EGFR 58 04/24/2025 5:16 AM EST [facility] Comment:As of 2021, the estimated [...] BLOOD ORDERABLES Final Resul t [facility] [address] [place] [address], [facility] * (ABNORMAL) CBC (04/24/2025 4:36 AM EST) WBC 9.4 3.8 - 10.8 10E3/uL 04/24/2025 4:48 AM EST [facility] RBC 3.29(L) 3.80 - 5.10 10E6/uL 04/24/2025 4:48 AM EST [facility] Hemoglobin 9.9(L) 11.7 - 15.5 g/dL 04/24/2025 4:48 AM EST [facility] Hematocrit 28.3(L) 35.0 - 45.0 % 04/24/2025 4:48 AM EST [facility] MCV 86.1 80.0 - 100.0 fL 04/24/2025 4:48 AM EST [facility] MCH 30.2 27.0 - 33.0 pg 04/24/2025 4:48 AM EST [facility] MCHC 35.1 32.0 - 36.0 g/dL 04/24/2025 4:48 AM EST [facility] RDW 17.1(H) 11.0 - 15.0 % 04/24/2025 4:48 AM EST [facility] Platelets 55(L) 140 - 400 10E3/uL 04/24/2025 4:48 AM EST [facility] MPV 9.2 7.5 - 11.5 fL 04/24/2025 4:48 AM [facility] Whole Blood 04/24/2025 4:36 AM EST 04/24/2025 4:44 AM EST Julius Becerra MD LAB BLOOD ORDERABLES Final Resul t [facility] [address] * (ABNORMAL) Hepatic Function Panel (04/24/2025 4:36 AM EST) Pathologist [facility] Total Bilirubin 2.9(H) 0.0 - 1.5 mg/dL 04/24/2025 5:16 AM EST [facility] Bilirubin, Direct 2.19(H) 0.00 - 0.40 mg/dL 04/24/2025 5:16 AM EST [facility] AST 77(H) 13 - 39 U/L 04/24/2025 5:16 AM EST [facility] ALT 98(H) 7 - 52 U/L 04/24/2025 5:16 AM EST [facility] Alkaline Phosphatase 84 36 - 125 U/L 04/24/2025 5:16 AM EST [facility] Total Protein 3.9(L) 6.4 - 8.9 g/dL 04/24/2025 5:16 AM EST [facility] Albumin 2.4(L) 3.5 - 5.7 g/dL 04/24/2025 5:16 AM EST [facility] Bilirubin, Indirect 0.71 0.00 - 1.10 mg/dL 04/24/2025 5:16 AM EST [facility] Plasma 04/24/2025 4:36 AM EST 04/24/2025 4:44 AM EST us Gloria Chen MD LAB BLOOD ORDERABLES Final Resul t [facility] [address] * (ABNORMAL) POC Glucose Monitoring Device (04/24/2025 12:12 AM EDT) POC Glucose Monitoring Device 118(H) 70 - 100 mg/dL 04/24/2025 12:22 AM EDT [facility] Blood 04/24/2025 12:1 2 AM EDT 04/24/2025 12:22 AM EDT us Ludin Jose MD POINT OF CARE TEST ORDERABLES Fi nal Result [facility] [address] * Protime-INR, STAT (04/24/2025 12:00 AM EDT) Protime 14.9 12.1 - 15.1 seconds 04/24/2025 12:59 AM EDT [facility] INR 1.1 0.9 - 1.1 04/24/2025 12:59 AM EDT [facility] Comment: RECOMMENDED THERAPEUTIC RANGES USING INR : Stable oral anticoagulant therapy: 2.0 - 3.0 Mechanical prosthetic heart valve: 2.5 - 3.5 Recurrent acute myocardial infarction: 2.5 - 3.5 Plasma 04/24/2025 04/24/2025 12: 27 AM EDT us Judith Murcia MD LAB BLOOD ORDERABLES Final Res ult [facility] [address] [place] [address], [facility] * (ABNORMAL) Blood Gas, Arterial, STAT (04/24/2025 12:00 AM EDT) O2 Sat, Arterial 100 04/24/2025 12:32 AM EDT [facility] FIO2 40% FiO2 04/24/2025 12:32 AM EDT [facility] pH, Arterial 7.34(L) 7.35 - 7.45 04/24/2025 12:32 AM EDT [facility] pCO2, Arterial 45 35 - 45 mm Hg 04/24/2025 12:32 AM EDT [facility] pO2, Arterial 102(H) 80 - 100 mm Hg 04/24/2025 12:32 AM EDT [facility] HCO3, Arterial 24 22 - 26 mmol/L 04/24/2025 12:32 AM EDT [facility] CO2 Content,Arteri al 26 23 - 27 mmol/L 04/24/2025 12:32 AM EDT [facility] Base Excess, Arterial -1.6 -2.0 - 3.0 mmol/L 04/24/2025 12:32 AM EDT [facility] %HBO2, Arterial 96.7 95.0 - 98.0 % 04/24/2025 12:32 AM EDT [facility] Carboxyhemoglo bin, Arterial 2.2 % 04/24/2025 12:32 AM EDT [facility] Comment: CARBOXYHEMOGLOBIN (CO) REFERENCE RANGES: Non-Smokers: <2 % Smokers: <8 % TOXIC: >20 % Methemoglobin, Arterial 0.9 0.0 - 1.5 % 04/24/2025 12:32 AM EDT [facility] Blood, Arterial 04/24/2025 12:27 AM EDT us Judith Murcia MD LAB BLOOD ORDERABLES Final Res ult [facility] [address] * TEG-Bypass/ECMO/Liver HN (Factor function, Platelet/Fibrin Clot Strength w/Clot Breakdown, Heparinase In All Channels) (04/24/2025 12:00 AM EDT) Citrated Kaolin Reaction Time (TEGECMOLIVER) 6.0 4.6 - 9.1 minutes 04/24/2025 1:08 AM EDT [facility] Citrated Kaolin W/Heparinase Reaction Time (TEGECMOLIVER) 5.4 4.3 - 8.3 minutes 04/24/2025 1:08 AM EDT [facility] Citrated Kaolin Maximum Amplitude (TEGECMOLIVER) 59.2 52.0 - 69.0 mm 04/24/2025 1:08 AM EDT [facility] Citrated Functional Fibrinogen W/Heparinase Maximum Amplitude(TEGEC MOLIVER) 19.4 15.0 - 34.0 mm 04/24/2025 1:08 AM EDT [facility] Citrated Rapid Teg W/Heparinase Maximum Amplitude (TEGECMOLIVER) 57.1 53.0 - 69.0 mm 04/24/2025 1:08 AM EDT [facility] Citrated Kaolin w/Heparinase Percent Lysis (TEGECMOLIVER) 0.0 0.0 - 3.2 % 04/24/2025 1:08 AM EDT [facility] Whole Blood (Citrate) 04/24/2025 04/24/2025 12:27 AM EDT us Julius Becerra MD LAB BLOOD ORDERABLES Final Resul t Performing Organization Address [facility]/ZIP Co de Phone Number [facility] [address] [address] * Magnesium (04/24/2025 12:00 AM EDT) Magnesium 2.4 1.5 - 2.5 mg/dL 04/24/2025 12:54 AM EDT [facility] Plasma 04/24/2025 04/24/2025 12: 27 AM EDT us Gloria Chen MD LAB BLOOD ORDERABLES Final Resul t [facility] [address] [place], [place] [address] * (ABNORMAL) Renal Function Panel w/EGFR (04/24/2025 12:00 AM EDT) Sodium 138 133 - 146 mmol/L 04/24/2025 12:54 AM EDT [facility] Potassium 5.3 3.5 - 5.3 mmol/L 04/24/2025 12:54 AM EDT [facility] Chloride 108 98 - 110 mmol/L 04/24/2025 12:54 AM EDT [facility] CO2 26 21 - 33 mmol/L 04/24/2025 12:54 AM EDT [facility] Comment:High lactate dehydro genase concentrations in patient samples may cause falsely increased bicarbonate results. If markedly elevated LDH is observed or suspected, please assess results in conjunction with patient`s clinical presentation. In cases of discrepant results, consider evaluating CO2 in with a blood gas order. Anion Gap 4 3 - 16 mmol/L 04/24/2025 12:54 AM EDT [facility] BUN 37(H) 7 - 25 mg/dL 04/24/2025 12:54 AM EDT [facility] Creatinine 1.25 0.60 - 1.30 mg/dL 04/24/2025 12:54 AM EDT [facility] Glucose 118(H) 70 - 100 mg/dL 04/24/2025 12:54 AM EDT [facility] Calcium 7.9(L) 8.6 - 10.3 mg/dL 04/24/2025 12:54 AM EDT [facility] Phosphorus 5.4(H) 2.1 - 4.7 mg/dL 04/24/2025 12:54 AM EDT [facility] Albumin 2.5(L) 3.5 - 5.7 g/dL 04/24/2025 12:54 AM EDT [facility] Osmolality, Calculated 296 278 - 305 mOsm/kg 04/24/2025 12:54 AM EDT [facility] EGFR 58 04/24/2025 12:54 AM EDT [facility] Comment:As of 2021, the estimated [...] BLOOD ORDERABLES Final Resul t [facility] [address] [place] [address], [facility] * (ABNORMAL) CBC (04/24/2025 12:00 AM EDT) WBC 10.5 3.8 - 10.8 10E3/uL 04/24/2025 12:31 AM EDT [facility] RBC 3.41(L) 3.80 - 5.10 10E6/uL 04/24/2025 12:31 AM EDT [facility] Hemoglobin 10.4(L) 11.7 - 15.5 g/dL 04/24/2025 12:31 AM EDT [facility] Hematocrit 29.6(L) 35.0 - 45.0 % 04/24/2025 12:31 AM EDT [facility] MCV 86.8 80.0 - 100.0 fL 04/24/2025 12:31 AM EDT [facility] MCH 30.4 27.0 - 33.0 pg 04/24/2025 12:31 AM EDT [facility] MCHC 35.1 32.0 - 36.0 g/dL 04/24/2025 12:31 AM EDT [facility] RDW 16.8(H) 11.0 - 15.0 % 04/24/2025 12:31 AM EDT [facility] Platelets 65(L) 140 - 400 10E3/uL 04/24/2025 12:31 AM EDT [facility] MPV 9.8 7.5 - 11.5 fL 04/24/2025 12:31 AM EDT [facility] Whole Blood 04/24/2025 04/24/2025 12 :27 AM EDT us Julius Becerra MD LAB BLOOD ORDERABLES Final Resul t Performing Organization Address City/[facility]/ZIP Co de Phone Number [facility] [address] * Protime-INR, STAT (04/23/2025 6:11 PM EDT) Protime 15.1 12.1 - 15.1 seconds 04/23/2025 6:38 PM EDT [facility] INR 1.1 0.9 - 1.1 04/23/2025 6:38 PM EDT [facility] Comment: RECOMMENDED THERAPEUTIC RANGES USING INR : Stable oral anticoagulant therapy: 2.0 - 3.0 Mechanical prosthetic heart valve: 2.5 - 3.5 Recurrent acute myocardial infarction: 2.5 - 3.5 Plasma 04/23/2025 6:11 PM EDT 04/23/2025 6:17 PM EDT us Judith Murcia MD LAB BLOOD ORDERABLES Final Res ult [facility] [address] * (ABNORMAL) Blood Gas, Arterial, STAT (04/23/2025 6:11 PM EDT) O2 Sat, Arterial 100 04/23/2025 6:20 PM EDT [facility] FIO2 40% 04/23/2025 6:20 PM EDT [facility] pH, Arterial 7.34(L) 7.35 - 7.45 04/23/2025 6:20 PM EDT [facility] pCO2, Arterial 44 35 - 45 mm Hg 04/23/2025 6:20 PM EDT [facility] pO2, Arterial 107(H) 80 - 100 mm Hg 04/23/2025 6:20 PM EDT [facility] HCO3, Arterial 23 22 - 26 mmol/L 04/23/2025 6:20 PM EDT [facility] CO2 Content,Arteri al 25 23 - 27 mmol/L 04/23/2025 6:20 PM EDT [facility] Base Excess, Arterial -2.1(L) -2.0 - 3.0 mmol/L 04/23/2025 6:20 PM EDT [facility] %HBO2, Arterial 96.3 95.0 - 98.0 % 04/23/2025 6:20 PM EDT [facility] Carboxyhemoglo bin, Arterial 2.4 % 04/23/2025 6:20 PM EDT [facility] Comment: CARBOXYHEMOGLOBIN (CO) REFERENCE RANGES: Non-Smokers: <2 % Smokers: <8 % TOXIC: >20 % Methemoglobin, Arterial 0.8 0.0 - 1.5 % 04/23/2025 6:20 PM EDT [facility] Blood, Arterial 04/23/2025 6 :11 PM EDT 04/23/2025 6:17 PM EDT us Judith Murcia MD LAB BLOOD ORDERABLES Final Res ult [facility] [address] [place] [address], [facility] * TEG-Bypass/ECMO/Liver HN (Factor function, Platelet/Fibrin Clot Strength w/Clot Breakdown, Heparinase In All Channels) (04/23/2025 6:11 PM EDT) Citrated Kaolin Reaction Time (TEGECMOLIVER) 7.4 4.6 - 9.1 minutes 04/23/2025 7:55 PM EDT [facility] Citrated Kaolin W/Heparinase Reaction Time (TEGECMOLIVER) 6.1 4.3 - 8.3 minutes 04/23/2025 7:55 PM EDT [facility] Citrated Kaolin Maximum Amplitude (TEGECMOLIVER) 55.1 52.0 - 69.0 mm 04/23/2025 7:55 PM EDT [facility] Citrated Functional Fibrinogen W/Heparinase Maximum Amplitude(TEGEC MOLIVER) 18.1 15.0 - 34.0 mm 04/23/2025 7:55 PM EDT [facility] Citrated Rapid Teg W/Heparinase Maximum Amplitude (TEGECMOLIVER) 54.3 53.0 - 69.0 mm 04/23/2025 7:55 PM EDT [facility] Citrated Kaolin w/Heparinase Percent Lysis (TEGECMOLIVER) 0.0 0.0 - 3.2 % 04/23/2025 7:55 PM EDT [facility] Whole Blood (Citrate) 04/23/2025 6:11 PM EDT 04/23/2025 6:17 PM EDT Julius Becerra MD LAB BLOOD ORDERABLES Final Resul t Performing Organization Address City/[facility]/ZIP Co de Phone Number [facility] [address] * Magnesium (04/23/2025 6:11 PM EDT) Magnesium 2.3 1.5 - 2.5 mg/dL 04/23/2025 6:52 PM EDT [facility] Plasma 04/23/2025 6:11 PM EDT 04/23/2025 6:17 PM EDT Gloria Chen MD LAB BLOOD ORDERABLES Final Resul t [facility] [address] * (ABNORMAL) Renal Function Panel w/EGFR (04/23/2025 6:11 PM EDT) Sodium 138 133 - 146 mmol/L 04/23/2025 6:52 PM EDT [facility] Potassium 5.4(H) 3.5 - 5.3 mmol/L 04/23/2025 6:52 PM EDT [facility] Chloride 107 98 - 110 mmol/L 04/23/2025 6:52 PM EDT [facility] CO2 24 21 - 33 mmol/L 04/23/2025 6:52 PM EDT [facility] Comment:High lactate dehydro genase concentrations in patient samples may cause falsely increased bicarbonate results. If markedly elevated LDH is observed or suspected, please assess results in conjunction with patient`s clinical presentation. In cases of discrepant results, consider evaluating CO2 in with a blood gas order. Anion Gap 7 3 - 16 mmol/L 04/23/2025 6:52 PM EDT [facility] BUN 35(H) 7 - 25 mg/dL 04/23/2025 6:52 PM EDT [facility] Creatinine 1.11 0.60 - 1.30 mg/dL 04/23/2025 6:52 PM EDT [facility] Glucose 154(H) 70 - 100 mg/dL 04/23/2025 6:52 PM EDT [facility] Calcium 7.9(L) 8.6 - 10.3 mg/dL 04/23/2025 6:52 PM EDT [facility] Phosphorus 5.3(H) 2.1 - 4.7 mg/dL 04/23/2025 6:52 PM EDT [facility] Albumin 2.5(L) 3.5 - 5.7 g/dL 04/23/2025 6:52 PM EDT [facility] Osmolality, Calculated 297 278 - 305 mOsm/kg 04/23/2025 6:52 PM EDT [facility] EGFR 66 04/23/2025 6:52 PM EDT [facility] Comment:As of 2021, the estimated [...] BLOOD ORDERABLES Final Resul t [facility] [address] [place] [address], [facility] * (ABNORMAL) CBC (04/23/2025 6:11 PM EDT) WBC 9.1 3.8 - 10.8 10E3/uL 04/23/2025 6:26 PM EDT [facility] RBC 3.66(L) 3.80 - 5.10 10E6/uL 04/23/2025 6:26 PM EDT [facility] Hemoglobin 11.1(L) 11.7 - 15.5 g/dL 04/23/2025 6:26 PM EDT [facility] Hematocrit 31.4(L) 35.0 - 45.0 % 04/23/2025 6:26 PM EDT [facility] MCV 85.7 80.0 - 100.0 fL 04/23/2025 6:26 PM EDT [facility] MCH 30.4 27.0 - 33.0 pg 04/23/2025 6:26 PM EDT [facility] MCHC 35.5 32.0 - 36.0 g/dL 04/23/2025 6:26 PM EDT [facility] RDW 16.4(H) 11.0 - 15.0 % 04/23/2025 6:26 PM EDT [facility] Platelets 63(L) 140 - 400 10E3/uL 04/23/2025 6:26 PM EDT [facility] MPV 9.3 7.5 - 11.5 fL 04/23/2025 6:26 PM EDT [facility] Whole Blood 04/23/2025 6:11 PM EDT 04/23/2025 6:17 PM EDT us Julius Becerra MD LAB BLOOD ORDERABLES Final Resul t [facility] [address] [facility]. [address] * (ABNORMAL) POC Glucose Monitoring Device (04/23/2025 6:09 PM EDT) [facility] Signature POC Glucose Monitoring Device 145(H) 70 - 100 mg/dL 04/23/2025 6:11 PM EDT [facility] Blood 04/23/2025 6:09 PM EDT 04/23/2025 6:11 PM EDT us Ludin Jose MD POINT OF CARE TEST ORDERABLES Fi nal Result Performing Organization Address [facility]/ZIP Co de Phone Number [facility] [address] * US Duplex [id number] Comp (04/23/2025 2:12 PM EDT) Anatomical Region [...] EXAM: US ABDOMEN LIMITED EXAM: US DUPLEX [id number] COMPLETE INDICATION: Liver Transplant COMPARISON: None TECHNIQUE: [...] EXAM: US ABDOMEN LIMITED EXAM: US DUPLEX [id number] COMPLETE INDICATION: Liver Transplant COMPARISON: None TECHNIQUE: [...] EXAM: US ABDOMEN LIMITED EXAM: US DUPLEX [id number] COMPLETE INDICATION: Liver Transplant COMPARISON: None TECHNIQUE: [...] EXAM: US ABDOMEN LIMITED EXAM: US DUPLEX [id number] COMPLETE INDICATION: Liver Transplant COMPARISON: None TECHNIQUE: [...] 04/23/2025 2:30 PM EDT Giovanny Louis MD [facility]LES Final Result * (ABNORMAL) Protime-INR, STAT (04/23/2025 1:44 PM EDT) Protime 15.5(H) 12.1 - 15.1 seconds 04/23/2025 2:16 PM EDT [facility] INR 1.2(H) 0.9 - 1.1 04/23/2025 2:16 PM EDT [facility] Comment: RECOMMENDED THERAPEUTIC RANGES USING INR : Stable oral anticoagulant therapy: 2.0 - 3.0 Mechanical prosthetic heart valve: 2.5 - 3.5 Recurrent acute myocardial infarction: 2.5 - 3.5 Plasma 04/23/2025 1:44 PM EDT 04/23/2025 1:53 PM EDT Judith Murcia MD LAB BLOOD ORDERABLES Final Res ult [facility] [address] [place] [address], [facility] * (ABNORMAL) Blood Gas, Arterial, STAT (04/23/2025 1:44 PM EDT) O2 Sat, Arterial 98 04/23/2025 1:56 PM EDT [facility] FIO2 40 04/23/2025 1:56 PM EDT [facility] pH, Arterial 7.33(L) 7.35 - 7.45 04/23/2025 1:56 PM EDT [facility] pCO2, Arterial 42 35 - 45 mm Hg 04/23/2025 1:56 PM EDT [facility] pO2, Arterial 88 80 - 100 mm Hg 04/23/2025 1:56 PM EDT [facility] HCO3, Arterial 22 22 - 26 mmol/L 04/23/2025 1:56 PM EDT [facility] CO2 Content,Arteri al 23 23 - 27 mmol/L 04/23/2025 1:56 PM EDT [facility] Base Excess, Arterial -3.7(L) -2.0 - 3.0 mmol/L 04/23/2025 1:56 PM EDT [facility] %HBO2, Arterial 94.7(L) 95.0 - 98.0 % 04/23/2025 1:56 PM EDT [facility] Carboxyhemoglo bin, Arterial 2.2 % 04/23/2025 1:56 PM EDT [facility] Comment: CARBOXYHEMOGLOBIN (CO) REFERENCE RANGES: Non-Smokers: <2 % Smokers: <8 % TOXIC: >20 % Methemoglobin, Arterial 1.2 0.0 - 1.5 % 04/23/2025 1:56 PM EDT [facility] Blood, Arterial 04/23/2025 1 :44 PM EDT 04/23/2025 1:51 PM EDT us Judith Murcia MD LAB BLOOD ORDERABLES Final Res ult Performing Organization Address [facility] Co de Phone Number [facility] [address] * Transfuse RBC Transfusion Rate: Per dept routine (04/23/2025 1:11 PM EDT) us Moe Luis MD NURSING TREATMENT ORDE BRITANY - BLOOD ADMIN Final Result Performing Organization Address City/[facility] Co de Phone Number EXTERNAL * Transfuse RBC Transfusion Rate: Per dept routine, 2 Units (04/23/2025 1:11 PM EDT) us Moe Luis MD NURSING TREATM ENT ORDERABLES - BLOOD ADMIN Edited Result - Final Performing Organization Address City/[facility]/ZIP Co de Phone Number EXTERNAL * X-ray [...] - 146 mmol/L 04/23/2025 12:54 PM EDT [facility] Potassium 5.1 3.5 - 5.3 mmol/L 04/23/2025 12:54 PM EDT [facility] Chloride 107 98 - 110 mmol/L 04/23/2025 12:54 PM EDT [facility] CO2 24 21 - 33 mmol/L 04/23/2025 12:54 PM EDT [facility] Comment:High lactate dehydro genase concentrations in patient samples may cause falsely increased bicarbonate results. If markedly elevated LDH is observed or suspected, please assess results in conjunction with patient`s clinical presentation. In cases of discrepant results, consider evaluating CO2 in with a blood gas order. Anion Gap 7 3 - 16 mmol/L 04/23/2025 12:54 PM EDT [facility] BUN 31(H) 7 - 25 mg/dL 04/23/2025 12:54 PM EDT [facility] Creatinine 0.95 0.60 - 1.30 mg/dL 04/23/2025 12:54 PM EDT [facility] Glucose 159(H) 70 - 100 mg/dL 04/23/2025 12:54 PM EDT [facility] Calcium 8.4(L) 8.6 - 10.3 mg/dL 04/23/2025 12:54 PM EDT [facility] Phosphorus 5.0(H) 2.1 - 4.7 mg/dL 04/23/2025 12:54 PM EDT [facility] Albumin 2.3(L) 3.5 - 5.7 g/dL 04/23/2025 12:54 PM EDT [facility] Osmolality, Calculated 296 278 - 305 mOsm/kg 04/23/2025 12:54 PM EDT [facility] EGFR 80 04/23/2025 12:54 PM EDT [facility] Comment:As of 2021, the estimated [...] BLOOD ORDERABLES Final Resul t [facility] [address] [place] [address], [facility] * (ABNORMAL) TEG-Bypass/ECMO/Liver HN (Factor function, Platelet/Fibrin Clot Strength w/Clot Breakdown, Heparinase In All Channels) (04/23/2025 11:46 AM EDT) Citrated Kaolin Reaction Time (TEGECMOLIVER) 7.3 4.6 - 9.1 minutes 04/23/2025 1:06 PM EDT [facility] Citrated Kaolin W/Heparinase Reaction Time (TEGECMOLIVER) 4.7 4.3 - 8.3 minutes 04/23/2025 1:06 PM EDT [facility] Citrated Kaolin Maximum Amplitude (TEGECMOLIVER) 51.3(L) 52.0 - 69.0 mm 04/23/2025 1:06 PM EDT [facility] Citrated Functional Fibrinogen W/Heparinase Maximum Amplitude(TEGEC MOLIVER) 17.2 15.0 - 34.0 mm 04/23/2025 1:06 PM EDT [facility] Citrated Rapid Teg W/Heparinase Maximum Amplitude (TEGECMOLIVER) 49.3(L) 53.0 - 69.0 mm 04/23/2025 1:06 PM EDT [facility] Citrated Kaolin w/Heparinase Percent Lysis (TEGECMOLIVER) 0.0 0.0 - 3.2 % 04/23/2025 1:06 PM EDT [facility] Whole Blood (Citrate) 04/23/2025 11:46 AM EDT 04/23/2025 11:51 AM EDT us Judith Murcia MD LAB BLOOD ORDERABLES Final Res ult Performing Organization Address [facility] Co de Phone Number [facility] [address] [place] [address] * (ABNORMAL) Free Calcium, Whole Blood (04/23/2025 11:46 AM EDT) Free Calcium, WB 5.49(H) 4.50 - 5.30 mg/dL 04/23/2025 11:57 AM EDT [facility] Blood, Arterial 04/23/2025 1 1:46 AM EDT 04/23/2025 11:54 AM EDT Judith Murcia MD LAB BLOOD ORDERABLES Final Res ult Performing Organization Address [facility] de Phone Number [facility] [address] * (ABNORMAL) Blood Gas, Arterial, STAT (04/23/2025 11:46 AM EDT) O2 Sat, Arterial 99 04/23/2025 11:54 AM EDT [facility] FIO2 50% 04/23/2025 11:54 AM EDT [facility] pH, Arterial 7.31(L) 7.35 - 7.45 04/23/2025 11:54 AM EDT [facility] pCO2, Arterial 46(H) 35 - 45 mm Hg 04/23/2025 11:54 AM EDT [facility] pO2, Arterial 158(H) 80 - 100 mm Hg 04/23/2025 11:54 AM EDT [facility] HCO3, Arterial 23 22 - 26 mmol/L 04/23/2025 11:54 AM EDT [facility] CO2 Content,Arteri al 25 23 - 27 mmol/L 04/23/2025 11:54 AM EDT [facility] Base Excess, Arterial -3.1(L) -2.0 - 3.0 mmol/L 04/23/2025 11:54 AM EDT [facility] %HBO2, Arterial 98.1(H) 95.0 - 98.0 % 04/23/2025 11:54 AM EDT [facility] Carboxyhemoglo bin, Arterial 1.2 % 04/23/2025 11:54 AM EDT [facility] Comment: CARBOXYHEMOGLOBIN (CO) REFERENCE RANGES: Non-Smokers: <2 % Smokers: <8 % TOXIC: >20 % Methemoglobin, Arterial 0.0 0.0 - 1.5 % 04/23/2025 11:54 AM EDT [facility] Blood, Arterial 04/23/2025 1 1:46 AM EDT 04/23/2025 11:51 AM EDT us Judith Murcia MD LAB BLOOD ORDERABLES Final Res ult [facility] [address] [facility]. [address] * Magnesium (04/23/2025 11:46 AM EDT) Magnesium 2.3 1.5 - 2.5 mg/dL 04/23/2025 12:54 PM EDT [facility] Plasma 04/23/2025 11:4 6 AM EDT 04/23/2025 12:02 PM EDT us Gloria Chen MD LAB BLOOD ORDERABLES Final Resul t [facility] [address] [facility]. [address] * (ABNORMAL) Protime-INR (04/23/2025 11:30 AM EDT) Protime 16.2(H) 12.1 - 15.1 seconds 04/23/2025 12:02 PM EDT [facility] INR 1.2(H) 0.9 - 1.1 04/23/2025 12:02 PM EDT [facility] Comment: RECOMMENDED THERAPEUTIC RANGES USING INR : Stable oral anticoagulant therapy: 2.0 - 3.0 Mechanical prosthetic heart valve: 2.5 - 3.5 Recurrent acute myocardial infarction: 2.5 - 3.5 Plasma 04/23/2025 11:3 0 AM EDT 04/23/2025 11:43 AM EDT Jostin Hess MD LAB BLOOD ORDERABLES Final Result [facility] [address] [facility]. [address] * Lactic Acid (04/23/2025 11:30 AM EDT) Lactate 1.0 0.5 - 2.2 mmol/L 04/23/2025 12:09 PM EDT [facility] Plasma 04/23/2025 11:3 0 AM EDT 04/23/2025 11:43 AM EDT Jostin Hess MD LAB BLOOD ORDERABLES Final Result Performing Organization Address City/[facility] Co de Phone Number [facility] [address] * (ABNORMAL) Hepatic Function Panel (04/23/2025 11:30 AM EDT) Total Bilirubin 2.7(H) 0.0 - 1.5 mg/dL 04/23/2025 12:22 PM EDT [facility] Bilirubin, Direct 2.09(H) 0.00 - 0.40 mg/dL 04/23/2025 12:22 PM EDT [facility] AST 65(H) 13 - 39 U/L 04/23/2025 12:22 PM EDT [facility] ALT 78(H) 7 - 52 U/L 04/23/2025 12:22 PM EDT [facility] Alkaline Phosphatase 55 36 - 125 U/L 04/23/2025 12:22 PM EDT [facility] Total Protein 3.6(L) 6.4 - 8.9 g/dL 04/23/2025 12:22 PM EDT [facility] Albumin 2.3(L) 3.5 - 5.7 g/dL 04/23/2025 12:22 PM EDT [facility] Bilirubin, Indirect 0.61 0.00 - 1.10 mg/dL 04/23/2025 12:22 PM EDT [facility] Plasma 04/23/2025 11:3 0 AM EDT 04/23/2025 11:43 AM EDT us Jostin Hess MD LAB BLOOD ORDERABLES Final Result [facility] [address] [place] [address], [facility] * (ABNORMAL) CBC (04/23/2025 11:30 AM EDT) WBC 5.0 3.8 - 10.8 10E3/uL 04/23/2025 1:02 PM EDT [facility] RBC 3.55(L) 3.80 - 5.10 10E6/uL 04/23/2025 1:02 PM EDT [facility] Hemoglobin 10.7(L) 11.7 - 15.5 g/dL 04/23/2025 1:02 PM EDT [facility] Hematocrit 30.5(L) 35.0 - 45.0 % 04/23/2025 1:02 PM EDT [facility] MCV 86.0 80.0 - 100.0 fL 04/23/2025 1:02 PM EDT [facility] MCH 30.2 27.0 - 33.0 pg 04/23/2025 1:02 PM EDT [facility] MCHC 35.1 32.0 - 36.0 g/dL 04/23/2025 1:02 PM EDT [facility] RDW 16.5(H) 11.0 - 15.0 % 04/23/2025 1:02 PM EDT [facility] Platelets 47(L) 140 - 400 10E3/uL 04/23/2025 1:02 PM EDT [facility] Comment:CNV MPV 9.2 7.5 - 11.5 fL 04/23/2025 1:02 PM EDT [facility] Whole Blood 04/23/2025 11:3 0 AM EDT 04/23/2025 12:02 PM EDT us Jostin Hess MD LAB BLOOD ORDERABLES Final Result [facility] [address] [place] [address], [facility] * (ABNORMAL) Renal Function Panel w/EGFR (04/23/2025 11:30 AM EDT) Sodium 137 133 - 146 mmol/L 04/23/2025 12:22 PM EDT [facility] Potassium 5.1 3.5 - 5.3 mmol/L 04/23/2025 12:22 PM EDT [facility] Chloride 106 98 - 110 mmol/L 04/23/2025 12:22 PM EDT [facility] CO2 26 21 - 33 mmol/L 04/23/2025 12:22 PM EDT [facility] Comment:High lactate dehydro genase concentrations in patient samples may cause falsely increased bicarbonate results. If markedly elevated LDH is observed or suspected, please assess results in conjunction with patient`s clinical presentation. In cases of discrepant results, consider evaluating CO2 in with a blood gas order. Anion Gap 5 3 - 16 mmol/L 04/23/2025 12:22 PM EDT [facility] BUN 30(H) 7 - 25 mg/dL 04/23/2025 12:22 PM EDT [facility] Creatinine 0.99 0.60 - 1.30 mg/dL 04/23/2025 12:22 PM EDT [facility] Glucose 159(H) 70 - 100 mg/dL 04/23/2025 12:22 PM EDT [facility] Calcium 8.8 8.6 - 10.3 mg/dL 04/23/2025 12:22 PM EDT [facility] Phosphorus 5.0(H) 2.1 - 4.7 mg/dL 04/23/2025 12:22 PM EDT [facility] Albumin 2.3(L) 3.5 - 5.7 g/dL 04/23/2025 12:22 PM EDT [facility] Osmolality, Calculated 294 278 - 305 mOsm/kg 04/23/2025 12:22 PM EDT [facility] EGFR 76 04/23/2025 12:22 PM EDT [facility] Comment:As of 2021, the estimated [...] BLOOD ORDERABLES Final Result Performing Organization Address City/[facility]/ZIP Co de Phone Number [facility] [address] * Magnesium (04/23/2025 11:30 AM EDT) Magnesium 2.4 1.5 - 2.5 mg/dL 04/23/2025 12:22 PM EDT [facility] Plasma 04/23/2025 11:3 0 AM EDT 04/23/2025 11:43 AM EDT Jostin Hess MD LAB BLOOD ORDERABLES Final Result [facility] [address] [place] [address], [place] * (ABNORMAL) POC Glucose Monitoring Device (04/23/2025 11:29 AM EDT) POC Glucose Monitoring Device 159(H) 70 - 100 mg/dL 04/23/2025 11:30 AM EDT [facility] Blood 04/23/2025 11:2 9 AM EDT 04/23/2025 11:30 AM EDT Ludin Jose MD POINT OF CARE TEST ORDERABLES Fi nal Result [facility] [address] * Prepare Fresh Frozen Plasma, 4 Units (04/23/2025 11:13 AM EDT) Product Code V8237E57 [facility]LL Unit Number [id number] HCLL Dispense Status Released from Crossmatch_RE HCLL Blood Expiration Date HCLL Coding System [id number] HCLL Product Code U7931P46 [facility] Unit Number [id number] HCLL Dispense Status Released from Crossmatch_RE HCLL Blood Expiration Date HCLL Coding System MYHH621 HCLL Product Code A7048I82 HCLL Unit Number [id number] HCLL Dispense Status Released from Crossmatch_RE HCLL Blood Expiration Date HCLL Coding System [id number] HCLL Product Code B6712R95 [facility]LL Unit Number [id number] HCLL Dispense Status Released from Crossmatch_RE HCLL Blood Expiration Date HCLL Coding System [id number] HCLL Product Code A9724V90 HCLL Unit Number [id number] HCLL Dispense Status Released from Crossmatch_RE HCLL Blood Expiration Date HCLL Coding System BSFE824 HCLL Product Code V0339W93 HCLL Unit Number [id number] HCLL Dispense Status Released from Crossmatch_RE HCLL Blood Expiration Date HCLL Coding System [id number] [facility] Product us Catracho Hui MD BLOOD BANK PRODUCT ORDERAB LES Final Result Performing Organization Address [facility] Co de Phone Number HCLL * Transfuse RBC Transfusion Rate: Per dept routine (04/23/2025 10:50 AM EDT) us Gloria Chen MD NURSING TREATMENT ORDERABLES - B LOOD ADMIN Final Result Performing Organization Address City/[facility] Co de Phone Number EXTERNAL * Routine Culture plus Stain (Surgical Swab) (04/23/2025 9:53 AM EDT) Gram Stain Result Rare Polymorphonuclear Leukocytes Seen [facility] Gram Stain Result No Organisms Seen; [facility] Culture Result No Growth After 3 Days [facility] Swab (specimen) ABDOMEN / Unknown 9:53 AM EDT Comment:Ascities fluid swab Narrative [facility] - 04/26/2025 8:57 AM EST Ascities fluid swab Ascities fluid swab 1 Alejandra Wilson MD MICROBIOLOGY - GENERAL ORDER RANDALL Final Result Performing Organization Address [facility] de Phone Number [facility] [address] * Fungus culture (Surgical Swab) (04/23/2025 9:53 AM EDT) Culture Result No Fungus Isolated At 4 Weeks [facility] Swab (specimen) ABDOMEN / Unknown 025 9:53 AM EDT Comment:Ascities fluid swab Narrative [facility] - 05/23/2025 8:20 AM EST Ascities fluid swab Ascities fluid swab 1 Alejandra Wilson MD MICROBIOLOGY - GENERAL ORDER RANDALL Final Result Performing Organization Address [facility] Co de Phone Number [facility] [address] * Anaerobic culture (Surgical Swab) (04/23/2025 9:53 AM EDT) Culture Result No Anaerobes Isolated in 5 Days [facility] Swab (specimen) ABDOMEN / Unknown 025 9:53 AM EDT Comment:Ascities fluid swab Narrative [facility] - 04/28/2025 12:31 PM EST Ascities fluid swab Ascities fluid swab 1 Alejandra Wilson MD MICROBIOLOGY - GENERAL ORDER RANDALL Final Result [facility] [address] [place] [address], [facility] * TEG-Bypass/ECMO/Liver HN (Factor function, Platelet/Fibrin Clot Strength w/Clot Breakdown, Heparinase In All Channels) (04/23/2025 9:37 AM EDT) Citrated Kaolin Reaction Time (TEGECMOLIVER) 5.6 4.6 - 9.1 minutes 04/23/2025 10:51 AM EDT [facility] Citrated Kaolin W/Heparinase Reaction Time (TEGECMOLIVER) 4.7 4.3 - 8.3 minutes 04/23/2025 10:51 AM EDT [facility] Citrated Kaolin Maximum Amplitude (TEGECMOLIVER) 58.2 52.0 - 69.0 mm 04/23/2025 10:51 AM EDT [facility] Citrated Functional Fibrinogen W/Heparinase Maximum Amplitude(TEGEC MOLIVER) 18.0 15.0 - 34.0 mm 04/23/2025 10:51 AM EDT [facility] Citrated Rapid Teg W/Heparinase Maximum Amplitude (TEGECMOLIVER) 54.9 53.0 - 69.0 mm 04/23/2025 10:51 AM EDT [facility] Citrated Kaolin w/Heparinase Percent Lysis (TEGECMOLIVER) 0.0 0.0 - 3.2 % 04/23/2025 10:51 AM EDT [facility] Whole Blood (Citrate) 04/23/2025 9:37 AM EDT 04/23/2025 9:46 AM EDT us Catracho Hui MD LAB BLOOD ORDERABLES Final Result [facility] [address] [place] [address], [facility] * (ABNORMAL) Arterial Blood Gas Panel (04/23/2025 9:37 AM EDT) O2Sat (ABGP) 99 04/23/2025 9:50 AM EDT [facility] pH (ABGP) 7.34(L) 7.35 - 7.45 04/23/2025 9:50 AM EDT [facility] PCO2 (ABGP) 43 35 - 45 mm Hg 04/23/2025 9:50 AM EDT [facility] PO2 (ABGP) 179(H) 80 - 100 mm Hg 04/23/2025 9:50 AM EDT [facility] HCO3 (ABGP) 23 22 - 26 mmol/L 04/23/2025 9:50 AM EDT [facility] CO2 Content (ABGP) 25 23 - 27 mmol/L 04/23/2025 9:50 AM EDT [facility] Base Excess (ABGP) -2.5(L) -2.0 - 3.0 mmol/L 04/23/2025 9:50 AM EDT [facility] Sodium (ABGP) 133(L) 136 - 146 mEq/L 04/23/2025 9:50 AM EDT [facility] Potassium (ABGP) 5.1(H) 3.5 - 5.0 mEq/L 04/23/2025 9:50 AM EDT [facility] Comment:In the event of in-v itro hemolysis, potassium results may be falsely elevated. Always interpret lab results in conjunction with clinical findings. If hemolysis is suspected, a serum sample may be collected for repeat assessment of potassium. Calcium, Free (ABGP) 4.56 4.50 - 5.30 mg/dL 04/23/2025 9:50 AM EDT [facility] Glucose (ABGP) 157(H) 70 - 100 mg/dL 04/23/2025 9:50 AM EDT [facility] Comment:There is interferenc e with whole blood glucose results on this method when Hematocrit is <25% or >60%. HCT (ABGP) 27.0(L) 35.0 - 45.0 % 04/23/2025 9:50 AM EDT [facility] HGB (ABGP) 9.0(L) 12.0 - 16.0 g/dL 04/23/2025 9:50 AM EDT [facility] %HBO2 (ABGP) 97.8 95.0 - 98.0 % 04/23/2025 9:50 AM EDT [facility] Carboxyhgb (ABGP) 1.4 % 025 9:50 AM EDT [facility] Comment: CARBOXYHEMOGLOBIN (CO) REFERENCE RANGES: Non-Smokers: <2 % Smokers: <8 % TOXIC: >20 % Methemoglobin (ABGP) 0.0 0.0 - 1.5 % 04/23/2025 9:50 AM EDT [facility] Lactic Acid (ABGP) 1.7(H) 0.5 - 1.6 mmol/L 04/23/2025 9:50 AM EDT [facility] Blood, Arterial 04/23/2025 9 :37 AM EDT 04/23/2025 9:46 AM EDT us Catracho Hui MD LAB BLOOD ORDERABLES Final Result [facility] [address] * Transfuse RBC Transfusion Rate: Per dept routine (04/23/2025 9:02 AM EDT) us Moe Luis MD NURSING TREATMENT ORDE [facility] - BLOOD ADMIN Final Result EXTERNAL * [...] 04/23/2025 11:08 AM EDT Julius Becerra MD IMG DIAGNOSTIC IMAGING ORDERABLE S Final Result * TEG-Bypass/ECMO/Liver HN (Factor function, Platelet/Fibrin Clot Strength w/Clot Breakdown, Heparinase In All Channels) (04/23/2025 8:31 AM EDT) [facility] Citrated Kaolin Reaction Time (TEGECMOLIVER) 6.4 4.6 - 9.1 minutes 04/23/2025 9:39 AM EDT [facility] Citrated Kaolin W/Heparinase Reaction Time (TEGECMOLIVER) 5.5 4.3 - 8.3 minutes 04/23/2025 9:39 AM EDT [facility] Citrated Kaolin Maximum Amplitude (TEGECMOLIVER) 63.3 52.0 - 69.0 mm 04/23/2025 9:39 AM EDT [facility] Citrated Functional Fibrinogen W/Heparinase Maximum Amplitude(TEGEC MOLIVER) 20.8 15.0 - 34.0 mm 04/23/2025 9:39 AM EDT [facility] Citrated Rapid Teg W/Heparinase Maximum Amplitude (TEGECMOLIVER) 60.0 53.0 - 69.0 mm 04/23/2025 9:39 AM EDT [facility] Citrated Kaolin w/Heparinase Percent Lysis (TEGECMOLIVER) 0.0 0.0 - 3.2 % 04/23/2025 9:39 AM EDT [facility] Whole Blood (Citrate) 04/23/2025 8:31 AM EDT 04/23/2025 8:34 AM EDT Julius Becerra MD LAB BLOOD ORDERABLES Final Resul t [facility] [address] * (ABNORMAL) CBC (04/23/2025 8:31 AM EDT) WBC 6.6 3.8 - 10.8 10E3/uL 04/23/2025 9:22 AM EDT [facility] RBC 2.22(L) 3.80 - 5.10 10E6/uL 04/23/2025 9:22 AM EDT [facility] Hemoglobin 6.7(L) 11.7 - 15.5 g/dL 04/23/2025 9:22 AM EDT [facility] Hematocrit 18.5(L) 35.0 - 45.0 % 04/23/2025 9:22 AM EDT [facility] MCV 83.4 80.0 - 100.0 fL 04/23/2025 9:22 AM EDT [facility] MCH 30.1 27.0 - 33.0 pg 04/23/2025 9:22 AM EDT [facility] MCHC 36.1(H) 32.0 - 36.0 g/dL 04/23/2025 9:22 AM EDT [facility] RDW 16.7(H) 11.0 - 15.0 % 04/23/2025 9:22 AM EDT [facility] Platelets 85(L) 140 - 400 10E3/uL 04/23/2025 9:22 AM EDT [facility] MPV 9.3 7.5 - 11.5 fL 04/23/2025 9:22 AM EDT [facility] Whole Blood 04/23/2025 8:31 AM EDT 04/23/2025 8:50 AM EDT Julius Becerra MD LAB BLOOD ORDERABLES Final Resul t [facility] [address] [place] [address], [facility] * TEG-Bypass/ECMO/Liver HN (Factor function, Platelet/Fibrin Clot Strength w/Clot Breakdown, Heparinase In All Channels) (04/23/2025 7:45 AM EDT) Citrated Kaolin Reaction Time (TEGECMOLIVER) 5.6 4.6 - 9.1 minutes 04/23/2025 9:05 AM EDT [facility] Citrated Kaolin W/Heparinase Reaction Time (TEGECMOLIVER) 4.4 4.3 - 8.3 minutes 04/23/2025 9:05 AM EDT [facility] Citrated Kaolin Maximum Amplitude (TEGECMOLIVER) 63.6 52.0 - 69.0 mm 04/23/2025 9:05 AM EDT [facility] Citrated Functional Fibrinogen W/Heparinase Maximum Amplitude(TEGEC MOLIVER) 21.1 15.0 - 34.0 mm 04/23/2025 9:05 AM EDT [facility] Citrated Rapid Teg W/Heparinase Maximum Amplitude (TEGECMOLIVER) 61.0 53.0 - 69.0 mm 04/23/2025 9:05 AM EDT [facility] Citrated Kaolin w/Heparinase Percent Lysis (TEGECMOLIVER) 0.0 0.0 - 3.2 % 04/23/2025 9:05 AM EDT [facility] Whole Blood (Citrate) 04/23/2025 7:45 AM EDT 04/23/2025 7:55 AM EDT us Julius Becerra MD LAB BLOOD ORDERABLES Final Resul t [facility] [address] [facility]. [address] * (ABNORMAL) Blood gas, arterial (04/23/2025 7:45 AM EDT) O2 Sat, Arterial 99 04/23/2025 8:00 AM EDT [facility] FIO2 60% 04/23/2025 8:00 AM EDT [facility] pH, Arterial 7.36 7.35 - 7.45 04/23/2025 8:00 AM EDT [facility] pCO2, Arterial 42 35 - 45 mm Hg 04/23/2025 8:00 AM EDT [facility] pO2, Arterial 119(H) 80 - 100 mm Hg 04/23/2025 8:00 AM EDT [facility] HCO3, Arterial 24 22 - 26 mmol/L 04/23/2025 8:00 AM EDT [facility] CO2 Content,Arteri al 25 23 - 27 mmol/L 04/23/2025 8:00 AM EDT [facility] Base Excess, Arterial -1.6 -2.0 - 3.0 mmol/L 04/23/2025 8:00 AM EDT [facility] %HBO2, Arterial 96.9 95.0 - 98.0 % 04/23/2025 8:00 AM EDT [facility] Carboxyhemoglo bin, Arterial 1.4 % 04/23/2025 8:00 AM EDT [facility] Comment: CARBOXYHEMOGLOBIN (CO) REFERENCE RANGES: Non-Smokers: <2 % Smokers: <8 % TOXIC: >20 % Methemoglobin, Arterial 0.6 0.0 - 1.5 % 04/23/2025 8:00 AM EDT [facility] Blood, Arterial 04/23/2025 7 :45 AM EDT 04/23/2025 7:55 AM EDT us Julius Becerra MD LAB BLOOD ORDERABLES Final Resul t [facility] [address] * (ABNORMAL) Hemoglobin, Blood Gas (04/23/2025 7:45 AM EDT) Hgb, blood gas 6.6(L) 12.0 - 16.0 g/dL 04/23/2025 8:00 AM EDT [facility] Blood, Arterial 04/23/2025 7 :45 AM EDT 04/23/2025 7:55 AM EDT us Julius Becerra MD LAB BLOOD ORDERABLES Final Resul t Performing Organization Address City/[facility] Co de Phone Number [facility] [address] [facility]. [address] * Lactic acid, ABG (04/23/2025 7:45 AM EDT) Pathologist [facility] Lactate, Art 1.6 0.5 - 1.6 mmol/L 04/23/2025 8:00 AM EDT [facility] Blood, Arterial 04/23/2025 7 :45 AM EDT 04/23/2025 7:55 AM EDT us Julius Becerra MD LAB BLOOD ORDERABLES Final Resul t Performing Organization Address [facility] Co de Phone Number [facility] [address] [facility]. [address] * Tacrolimus level (04/23/2025 7:45 AM EDT) Pathologist [facility] Tacrolimus (LC-MS) 9.3 3.0 - 15.0 ng/mL 04/23/2025 12:16 PM EDT [facility] Comment:Performed via liquid chromatography tandem mass spectrometry. Detection limit: 1 ng/mL. Individual target concentrations may vary due to target organ and time after transplant. This test has been developed and its performance characteristics determined by [facility] which is certified under the [...] Final Resul t Performing Organization Address [facility] Co de Phone Number [facility] [address] * Transfuse RBC Transfusion Rate: Per dept routine (04/23/2025 7:31 AM EDT) us Sergey Altman MD NURSING TREATMENT OR DERABLES - BLOOD ADMIN Final Result Performing Organization Address [facility] de Phone Number EXTERNAL * Transfuse RBC Transfusion Rate: Per dept routine, 1 Units (04/23/2025 7:31 AM EDT) us Sergey Altman MD NURSING TREATMENT OR DERABLES - BLOOD ADMIN Final Result Performing Organization Address [facility] de Phone Number EXTERNAL * SMALL BOWEL ENTEROSCOPY (04/23/2025 6:01 AM EDT) 04/23/2025 6:01 AM EDT Narrative [facility] - 04/23/2025 11:33 AM EDT [id number] Procedure Date: 04/23/2025 6:01 AM Patient Name: Mindy Wade Date of : 1990 Admit Type: Inpatient Age: 35 Gender: Female Note Status: Finalized Attending MD: Kelsey Moyer , , [id number] Procedure: Small bowel enteroscopy Indications: Melena Patient Profile: 35-year-old woman post recent right lobe living donor liver transplant with Edna-en-Y hepatojejunostomy 5 days ago (04/18/25) who developed large volume melena and coffee-ground emesis with hypotension and a drop in Hgb. Providers: Mike Rdz (Fellow) Referring MD: Ludin Jose Medicines: Fentanyl [...] by the physician, the nurse and the engineering technician parking in the procedure room. Mental Status Examination: [...] the bleed. Procedure Code(s): --- Professional --- 80507, GC, Small intestinal endoscopy, enteroscopy beyond second portion of duodenum, not including ileum; diagnostic, including collection of specimen(s) by brushing or washing, when performed (separate procedure) Diagnosis Code(s): --- Professional --- K92.2, Gastrointestinal hemorrhage, unspecified K92.1, Melena (includes Hematochezia) CPT copyright 2022 [employer]. All rights reserved. The codes documented in this report are preliminary and upon shaker tender review may be revised to meet current compliance requirements. Attending Participation: I was present and participated during the entire procedure from insertion to removal of the endoscope. Kelsey Moyer Kelsey Moyer, 04/23/2025 11:32:48 AM Mike Ventura Mike Ventura, 04/23/2025 7:30:40 AM Total Procedure Duration Time 0 hours 51 minutes 31 seconds Scope In: 6:09:10 AM Scope Out: 7:00:[address] [place] [address], [facility] Ludin Jose MD PROCEDURE/MINOR SURGICAL ORDERAB LES Final Result [facility] * Prepare RBC, leukoreduced (04/23/2025 5:36 AM EDT) Product Code H8509F63 HCLL Unit Number [id number] HCLL Dispense Status Released from Crossmatch_RE HCLL Blood Expiration Date HCLL Coding System TNVR828 HCLL Product Code O4901R30 HCLL Unit Number [id number] HCLL Dispense Status Released from Crossmatch_RE HCLL Blood Expiration Date HCLL Coding System OKZH609 HCLL Product Code J6517I93 HCLL Unit Number [id number] HCLL Dispense Status Released from Crossmatch_RE HCLL Blood Expiration Date HCLL Coding System HAYA162 HCLL Product Code O2813S63 HCLL Unit Number [id number] HCLL Dispense Status Released from Crossmatch_RE HCLL Blood Expiration Date HCLL Coding System IYKS887 HCLL Product Code W0458H99 HCLL Unit Number [id number] HCLL Dispense Status Released from Crossmatch_RE HCLL Blood Expiration Date HCLL Coding System NFRX771 HCLL Product Code P6303H35 HCLL Unit Number [id number] HCLL Dispense Status Released from Crossmatch_RE HCLL Blood Expiration Date HCLL Coding System [id number] HCLL us Attending Provider Unknown BLOOD BANK PRODUCT OR DERABLES Final Result HC[facility] * Prepare Fresh Frozen Plasma (04/23/2025 5:33 AM EDT) Product Code K6845J53 HCLL Unit Number [id number] HCLL Dispense Status Released from Crossmatch_RE HCLL Blood Expiration Date HCLL Coding System OIKO698 HCLL Product Code K5366T56 HCLL Unit Number [id number] HCLL Dispense Status Released from Crossmatch_RE HCLL Blood Expiration Date HCLL Coding System ARAP396 HCLL Product Code O2158W78 HCLL Unit Number [id number] HCLL Dispense Status Released from Crossmatch_RE HCLL Blood Expiration Date HCLL Coding System AXUY241 HCLL Product Code S5492P04 HCLL Unit Number [id number] HCLL Dispense Status Released from Crossmatch_RE HCLL Blood Expiration Date HCLL Coding System APXS905 HCLL Product Code T2925B95 HCLL Unit Number [id number] HCLL Dispense Status Released from Crossmatch_RE HCLL Blood Expiration Date HCLL Coding System MEAT302 HCLL Product Code Q0253N38 HCLL Unit Number [id number] HCLL Dispense Status Released from Crossmatch_RE HCLL Blood Expiration Date HCLL Coding System QQWB275 HCLL us Attending Provider Unknown BLOOD BANK PRODUCT OR DERABLES Final Result [facility] * CENTRAL LINE SINGLE LUMEN PERFORMABLE (04/23/2025 5:14 AM EDT) Manuela Darnell MD - 04/23/2025 5:14 AM EDT Manuela [...] Lang MD Consent: Consent obtained: Emergent situation [place] protocol: Patient identity confirmed: Hospital-assigned identification number [...] - 2.5 mg/dL 04/23/2025 5:09 AM EDT [facility] Plasma 04/23/2025 4:26 AM EDT 04/23/2025 4:40 AM EDT us Sergey Altman MD LAB BLOOD ORDERABLES Final Result [facility] [address] [place] [address], [facility] * (ABNORMAL) TEG-Bypass/ECMO/Liver HN (Factor function, Platelet/Fibrin Clot Strength w/Clot Breakdown, Heparinase In All Channels) (04/23/2025 4:26 AM EDT) Citrated Kaolin Reaction Time (TEGECMOLIVER) 6.3 4.6 - 9.1 minutes 04/23/2025 5:55 AM EDT [facility] Citrated Kaolin W/Heparinase Reaction Time (TEGECMOLIVER) 5.4 4.3 - 8.3 minutes 04/23/2025 5:55 AM EDT [facility] Citrated Kaolin Maximum Amplitude (TEGECMOLIVER) 48.6(L) 52.0 - 69.0 mm 04/23/2025 5:55 AM EDT [facility] Citrated Functional Fibrinogen W/Heparinase Maximum Amplitude(TEGEC MOLIVER) 11.0(L) 15.0 - 34.0 mm 04/23/2025 5:55 AM EDT [facility] Citrated Rapid Teg W/Heparinase Maximum Amplitude (TEGECMOLIVER) 45.5(L) 53.0 - 69.0 mm 04/23/2025 5:55 AM EDT [facility] Citrated Kaolin w/Heparinase Percent Lysis (TEGECMOLIVER) 0.0 0.0 - 3.2 % 04/23/2025 5:55 AM EDT [facility] Whole Blood (Citrate) 04/23/2025 4:26 AM EDT 04/23/2025 4:32 AM EDT us Sergey Altman MD LAB BLOOD ORDERABLES Final Result [facility] [address] [facility]. [address] * (ABNORMAL) CBC, STAT (04/23/2025 4:26 AM EDT) WBC 11.4(H) 3.8 - 10.8 10E3/uL 04/23/2025 4:50 AM EDT [facility] RBC 3.32(L) 3.80 - 5.10 10E6/uL 04/23/2025 4:50 AM EDT [facility] Hemoglobin 9.6(L) 11.7 - 15.5 g/dL 04/23/2025 4:50 AM EDT [facility] Hematocrit 28.4(L) 35.0 - 45.0 % 04/23/2025 4:50 AM EDT [facility] MCV 85.4 80.0 - 100.0 fL 04/23/2025 4:50 AM EDT [facility] MCH 28.9 27.0 - 33.0 pg 04/23/2025 4:50 AM EDT [facility] MCHC 33.9 32.0 - 36.0 g/dL 04/23/2025 4:50 AM EDT [facility] RDW 16.4(H) 11.0 - 15.0 % 04/23/2025 4:50 AM EDT [facility] Platelets 56(L) 140 - 400 10E3/uL 04/23/2025 4:50 AM EDT [facility] MPV 9.1 7.5 - 11.5 fL 04/23/2025 4:50 AM EDT [facility] Whole Blood 04/23/2025 4:26 AM EDT 04/23/2025 4:40 AM EDT us Sergey Altman MD LAB BLOOD ORDERABLES Final Result [facility] [address] * Calcium Free, Serum (04/23/2025 4:26 AM EDT) Free Calcium, Ser 4.79 4.40 - 5.40 mg/dL 04/23/2025 5:05 AM EDT [facility] Comment:Free calcium levels vary inversely with pH by approximately 5% for each 0.1 unit of pH change. Assay results have been normalized to pH = 7.40. Serum 04/23/2025 4:26 AM EDT 04/23/2025 4:40 AM EDT Narrative [facility] - 04/23/2025 5:05 AM EDT This test has been developed and its performance characteristics determined by [facility] which is certified under the [...] LAB BLOOD ORDERABLES Final Result [facility] [address] Alan. [address] * (ABNORMAL) Hepatic Function Panel, STAT (04/23/2025 4:26 AM EDT) Total Bilirubin 1.4 0.0 - 1.5 mg/dL 04/23/2025 5:09 AM EDT [facility] Bilirubin, Direct 0.92(H) 0.00 - 0.40 mg/dL 04/23/2025 5:09 AM EDT [facility] AST 59(H) 13 - 39 U/L 04/23/2025 5:09 AM EDT [facility] ALT 81(H) 7 - 52 U/L 04/23/2025 5:09 AM EDT [facility] Alkaline Phosphatase 63 36 - 125 U/L 04/23/2025 5:09 AM EDT [facility] Total Protein 3.4(L) 6.4 - 8.9 g/dL 04/23/2025 5:09 AM EDT [facility] Albumin 2.2(L) 3.5 - 5.7 g/dL 04/23/2025 5:09 AM EDT [facility] Bilirubin, Indirect 0.48 0.00 - 1.10 mg/dL 04/23/2025 5:09 AM EDT [facility] Plasma 04/23/2025 4:26 AM EDT 04/23/2025 4:40 AM EDT Sergey Altman MD LAB BLOOD ORDERABLES Final Result [facility] [address] [facility] [place] [address], [facility] * (ABNORMAL) Renal Function Panel w/EGFR, STAT (04/23/2025 4:26 AM EDT) Sodium 137 133 - 146 mmol/L 04/23/2025 5:09 AM EDT [facility] Potassium 4.6 3.5 - 5.3 mmol/L 04/23/2025 5:09 AM EDT [facility] Chloride 109 98 - 110 mmol/L 04/23/2025 5:09 AM EDT [facility] CO2 23 21 - 33 mmol/L 04/23/2025 5:09 AM EDT [facility] Comment:High lactate dehydro genase concentrations in patient samples may cause falsely increased bicarbonate results. If markedly elevated LDH is observed or suspected, please assess results in conjunction with patient`s clinical presentation. In cases of discrepant results, consider evaluating CO2 in with a blood gas order. Anion Gap 5 3 - 16 mmol/L 04/23/2025 5:09 AM EDT [facility] BUN 39(H) 7 - 25 mg/dL 04/23/2025 5:09 AM EDT [facility] Creatinine 1.32(H) 0.60 - 1.30 mg/dL 04/23/2025 5:09 AM EDT [facility] Glucose 152(H) 70 - 100 mg/dL 04/23/2025 5:09 AM EDT [facility] Calcium 8.1(L) 8.6 - 10.3 mg/dL 04/23/2025 5:09 AM EDT [facility] Phosphorus 7.0(H) 2.1 - 4.7 mg/dL 04/23/2025 5:09 AM EDT [facility] Albumin 2.2(L) 3.5 - 5.7 g/dL 04/23/2025 5:09 AM EDT [facility] Osmolality, Calculated 296 278 - 305 mOsm/kg 04/23/2025 5:09 AM EDT [facility] EGFR 54 04/23/2025 5:09 AM EDT [facility] Comment:As of 2021, the estimated [...] Usama C, Hernandez M, Chato [place], Suzy NEELY, [...] HOSPITAL Co de Phone Number [facility] [address] [place] [id number] * Lactic Acid, STAT (04/23/2025 4:26 AM EDT) Lactate 1.3 0.5 - 2.2 mmol/L 04/23/2025 5:05 AM EDT [facility] Plasma 04/23/2025 4:26 AM EDT 04/23/2025 4:40 AM EDT Sergey Altman MD LAB BLOOD ORDERABLES Final Result Performing Organization Address [facility]/ZIP Co de Phone Number [facility] [address] * (ABNORMAL) Sodium, Blood Gas (04/23/2025 4:26 AM EDT) Sodium, Blood Gas 131(L) 136 - 146 mEq/L 04/23/2025 4:37 AM EDT [facility] Blood, Arterial 04/23/2025 4 :26 AM EDT 04/23/2025 4:32 AM EDT Sergey Altman MD LAB BLOOD ORDERABLES Final Result Performing Organization Address [facility] de Phone Number [facility] [address] [facility]. [address] * Potassium, Blood Gas (04/23/2025 4:26 AM EDT) Pathologist [facility] Potassium, Blood Gas 4.6 3.5 - 5.0 mEq/L 04/23/2025 4:37 AM EDT [facility] Comment:In the event of in-v itro hemolysis, potassium results may be falsely elevated. Always interpret lab results in conjunction with clinical findings. If hemolysis is suspected, a serum sample may be collected for repeat assessment of potassium. Blood, Arterial 04/23/2025 4 :26 AM EDT 04/23/2025 4:32 AM EDT Sergey Altman MD LAB BLOOD ORDERABLES Final Result Performing Organization Address [facility] Co de Phone Number [facility] [address] [facility]. [address] * Lactic acid, ABG (04/23/2025 4:26 AM EDT) Lactate, Art 1.3 0.5 - 1.6 mmol/L 04/23/2025 4:37 AM EDT [facility] Blood, Arterial 04/23/2025 4 :26 AM EDT 04/23/2025 4:32 AM EDT Sergey Altman MD LAB BLOOD ORDERABLES Final Result Performing Organization Address [facility] Co de Phone Number [facility] [address] * (ABNORMAL) Hemoglobin, Blood Gas (04/23/2025 4:26 AM EDT) Hgb, blood gas 9.9(L) 12.0 - 16.0 g/dL 04/23/2025 4:37 AM EDT [facility] Blood, Arterial 04/23/2025 4 :26 AM EDT 04/23/2025 4:32 AM EDT Sergey Altman MD LAB BLOOD ORDERABLES Final Result Performing Organization Address [facility] Co de Phone Number [facility] [address] * (ABNORMAL) Hematocrit, Blood Gas (04/23/2025 4:26 AM EDT) Hct, blood gas 30.0(L) 35.0 - 45.0 % 04/23/2025 4:37 AM EDT [facility] Blood, Arterial 04/23/2025 4 :26 AM EDT 04/23/2025 4:32 AM EDT Sergey Altman MD LAB BLOOD ORDERABLES Final Result Performing Organization Address City/[facility] Co de Phone Number [facility] [address] * Calcium Ionized, Whole Blood (04/23/2025 4:26 AM EDT) Free Calcium, WB 5.15 4.50 - 5.30 mg/dL 04/23/2025 4:37 AM EDT [facility] Blood, Arterial 04/23/2025 4 :26 AM EDT 04/23/2025 4:32 AM EDT Sergey Altman MD LAB BLOOD ORDERABLES Final Result [facility] [address] [place] [id number] * (ABNORMAL) Blood gas, arterial (04/23/2025 4:26 AM EDT) O2 Sat, Arterial 98 04/23/2025 4:38 AM EDT [facility] FIO2 60 04/23/2025 4:39 AM EDT [facility] pH, Arterial 7.14(LL) 7.35 - 7.45 04/23/2025 4:38 AM EDT [facility] Comment:Critical value was p reviously called. pCO2, Arterial 61(H) 35 - 45 mm Hg 04/23/2025 4:38 AM EDT [facility] pO2, Arterial 122(H) 80 - 100 mm Hg 04/23/2025 4:38 AM EDT [facility] HCO3, Arterial 19(L) 22 - 26 mmol/L 04/23/2025 4:38 AM EDT [facility] CO2 Content,Arteria l 23 23 - 27 mmol/L 04/23/2025 4:38 AM EDT [facility] Base Excess, Arterial -8.3(L) -2.0 - 3.0 mmol/L 04/23/2025 4:38 AM EDT [facility] %HBO2, Arterial 96.2 95.0 - 98.0 % 04/23/2025 4:38 AM EDT [facility] Carboxyhemoglob in, Arterial 1.3 % 04/23/2025 4:38 AM EDT [facility] Comment: CARBOXYHEMOGLOBIN (CO) REFERENCE RANGES: Non-Smokers: <2 % Smokers: <8 % TOXIC: >20 % Methemoglobin, Arterial 0.8 0.0 - 1.5 % 04/23/2025 4:38 AM EDT [facility] Blood, Arterial 04/23/2025 4 :26 AM EDT 04/23/2025 4:32 AM EDT Sergey Altman MD LAB BLOOD ORDERABLES Final Result Performing Organization Address [facility] Co de Phone Number [facility] [address] * (ABNORMAL) Protime-INR, AM (04/23/2025 4:26 AM EDT) Protime 18.1(H) 12.1 - 15.1 seconds 04/23/2025 4:57 AM EDT [facility] INR 1.4(H) 0.9 - 1.1 04/23/2025 4:57 AM EDT [facility] Comment: RECOMMENDED THERAPEUTIC RANGES USING INR : Stable oral anticoagulant therapy: 2.0 - 3.0 Mechanical prosthetic heart valve: 2.5 - 3.5 Recurrent acute myocardial infarction: 2.5 - 3.5 Plasma 04/23/2025 4:26 AM EDT 04/23/2025 4:35 AM EDT [facility] Porsha Altman MD LAB BLOOD ORDERABLES Final Result Performing Organization Address [facility] Co de Phone Number [facility] [address] * INTUBATION (04/23/2025 3:44 AM EDT) Narrative Manuela Lang MD - 04/23/2025 3:44 AM EDT Manuela Lang MD 04/23/2025 4:44 AM Intubation Date/Time: 04/23/2025 3:44 AM Performed by: Drea Campbell MD Authorized by: Manuela Lang MD Consent: Consent obtained: Emergent situation Alternatives discussed: No treatment and delayed treatment [place] protocol: Patient identity confirmed: Hospital-assigned identification number [...] Calcium, Whole Blood (04/23/2025 2:54 AM EDT) Pathologist [facility] Free Calcium, WB 4.20(L) 4.50 - 5.30 mg/dL 04/23/2025 3:03 AM EDT [facility] Blood, Arterial 04/23/2025 2 :54 AM EDT 04/23/2025 2:57 AM EDT us Ludin Jose MD LAB BLOOD ORDERABLES Final Resul t [facility] [address] [place] [address], [facility] * (ABNORMAL) Arterial Blood Gas Panel (04/23/2025 2:54 AM EDT) Pathologist [facility] O2Sat (ABGP) 100 04/23/2025 3:18 AM EDT [facility] FIO2 (ABGP) 100 04/23/2025 3:18 AM EDT [facility] pH (ABGP) 7.05(LL) 7.35 - 7.45 04/23/2025 3:18 AM EDT [facility] Comment: The critical result was called to, and read back by, licensed caregiver konstantin pineda PCO2 (ABGP) 69(H) 35 - 45 mm Hg 04/23/2025 3:18 AM EDT [facility] PO2 (ABGP) 235(H) 80 - 100 mm Hg 04/23/2025 3:18 AM EDT [facility] HCO3 (ABGP) 16(L) 22 - 26 mmol/L 04/23/2025 3:18 AM EDT [facility] CO2 Content (ABGP) 21(L) 23 - 27 mmol/L 04/23/2025 3:18 AM [facility] Base Excess (ABGP) -11.2(L) -2.0 - 3.0 mmol/L 04/23/2025 3:18 AM [facility] Sodium (ABGP) 130(L) 136 - 146 mEq/L 04/23/2025 3:18 AM [facility] Potassium (ABGP) 5.4(H) 3.5 - 5.0 mEq/L 04/23/2025 3:18 AM [facility] Comment: In the event of [...] 4.50 - 5.30 mg/dL 04/23/2025 3:18 AM [facility] Glucose (ABGP) 165(H) 70 - 100 mg/dL 04/23/2025 3:18 AM [facility] Comment:There is interferenc e with whole blood glucose results on this method when Hematocrit is <25% or >60%. HCT (ABGP) 26.0(L) 35.0 - 45.0 % 04/23/2025 3:18 AM [facility] HGB (ABGP) 8.8(L) 12.0 - 16.0 g/dL 04/23/2025 3:18 AM [facility] %HBO2 (ABGP) 98.4(H) 95.0 - 98.0 % 04/23/2025 3:18 AM [facility] Carboxyhgb (ABGP) 1.6 % 025 3:18 AM EDT [facility] Comment: CARBOXYHEMOGLOBIN (CO) REFERENCE RANGES: Non-Smokers: <2 % Smokers: <8 % TOXIC: >20 % Methemoglobin (ABGP) 0.0 0.0 - 1.5 % 04/23/2025 3:18 AM EDT [facility] Lactic Acid (ABGP) 5.5(H) 0.5 - 1.6 mmol/L 04/23/2025 3:18 AM EDT [facility] Blood, Arterial 04/23/2025 2 :54 AM EDT 04/23/2025 2:57 AM EDT Narrative [facility] - 04/23/2025 3:18 AM EDT Specimen is beyond 15 minutes from time of collection. Results may be compromised. Review results critically. Specimen is beyond 15 minutes from time of collection. Results may be compromised. Review results critically. us Ludin Jose MD LAB BLOOD ORDERABLES Final Resul t Performing Organization Address City/State/[facility] Co de Phone Number [facility] [address] * (ABNORMAL) Calcium Free, Serum (04/23/2025 2:23 AM EDT) Free Calcium, Ser 3.80(L) 4.40 - 5.40 mg/dL 04/23/2025 3:13 AM EDT [facility] Comment:Free calcium levels vary inversely with pH by approximately 5% for each 0.1 unit of pH change. Assay results have been normalized to pH = 7.40. Serum 04/23/2025 2:23 AM EDT 04/23/2025 2:35 AM EDT Narrative [facility] - 04/23/2025 3:13 AM EDT This test has been developed and its performance characteristics determined by [facility] which is certified under the [...] LAB BLOOD ORDERABLES Final Result [facility] [address] [place] [address] * (ABNORMAL) TEG-Bypass/ECMO/Liver HN (Factor function, Platelet/Fibrin Clot Strength w/Clot Breakdown, Heparinase In All Channels) (04/23/2025 2:23 AM EDT) [facility] Citrated Kaolin Reaction Time (TEGECMOLIVER) 6.3 4.6 - 9.1 minutes 04/23/2025 3:50 AM EDT [facility] Citrated Kaolin W/Heparinase Reaction Time (TEGECMOLIVER) 5.1 4.3 - 8.3 minutes 04/23/2025 3:50 AM EDT [facility] Citrated Kaolin Maximum Amplitude (TEGECMOLIVER) 40.3(L) 52.0 - 69.0 mm 04/23/2025 3:50 AM EDT [facility] Citrated Functional Fibrinogen W/Heparinase Maximum Amplitude(TEGEC MOLIVER) <6.0(L) 15.0 - 34.0 mm 04/23/2025 3:50 AM EDT [facility] Citrated Rapid Teg W/Heparinase Maximum Amplitude (TEGECMOLIVER) 36.1(L) 53.0 - 69.0 mm 04/23/2025 3:50 AM EDT [facility] Citrated Kaolin w/Heparinase Percent Lysis (TEGECMOLIVER) 0.0 0.0 - 3.2 % 04/23/2025 3:50 AM EDT [facility] Whole Blood (Citrate) 04/23/2025 2:23 AM EDT 04/23/2025 2:35 AM EDT Sergey Altman MD LAB BLOOD ORDERABLES Final Result [facility] [address] [facility]. [address] * Lactic Acid, STAT (04/23/2025 2:23 AM EDT) Lactate 1.9 0.5 - 2.2 mmol/L 04/23/2025 3:08 AM EDT [facility] Plasma 04/23/2025 2:2 3 AM EDT 04/23/2025 2:35 AM EDT Sergey Altman MD LAB BLOOD ORDERABLES Final Result [facility] [address] [place], [place] [address] * (ABNORMAL) Renal Function Panel w/EGFR (04/23/2025 2:23 AM EDT) Sodium 134 133 - 146 mmol/L 04/23/2025 3:20 AM EDT [facility] Potassium 4.6 3.5 - 5.3 mmol/L 04/23/2025 3:20 AM EDT [facility] Chloride 107 98 - 110 mmol/L 04/23/2025 3:20 AM EDT [facility] CO2 22 21 - 33 mmol/L 04/23/2025 3:20 AM EDT [facility] Comment:High lactate dehydro genase concentrations in patient samples may cause falsely increased bicarbonate results. If markedly elevated LDH is observed or suspected, please assess results in conjunction with patient`s clinical presentation. In cases of discrepant results, consider evaluating CO2 in with a blood gas order. Anion Gap 5 3 - 16 mmol/L 04/23/2025 3:20 AM EDT [facility] BUN 39(H) 7 - 25 mg/dL 04/23/2025 3:20 AM EDT [facility] Creatinine 1.28 0.60 - 1.30 mg/dL 04/23/2025 3:20 AM EDT [facility] Glucose 140(H) 70 - 100 mg/dL 04/23/2025 3:20 AM EDT [facility] Calcium 6.3(LL) 8.6 - 10.3 mg/dL 04/23/2025 3:20 AM EDT [facility] Comment:Critical Result S_CA .3 Called to and read back by: ROBERT LANDRY RN at: 04/23/2025 03:20:32 by:[email or web address] Phosphorus 5.0(H) 2.1 - 4.7 mg/dL 04/23/2025 3:20 AM EDT [facility] Albumin 2.0(L) 3.5 - 5.7 g/dL 04/23/2025 3:20 AM EDT [facility] Osmolality, Calculated 290 278 - 305 mOsm/kg 04/23/2025 3:20 AM EDT [facility] EGFR 56 04/23/2025 3:20 AM EDT [facility] Comment:As of 2021, the estimated [...] MD LAB BLOOD ORDERABLES Final Res ult [facility] [address] [place], [place] [address] * Magnesium (04/23/2025 2:23 AM EDT) Magnesium 1.9 1.5 - 2.5 mg/dL 04/23/2025 3:20 AM EDT [facility] Plasma 04/23/2025 2:23 AM EDT 04/23/2025 2:35 AM EDT us Giovanny Louis MD LAB BLOOD ORDERABLES Final Res ult Performing Organization Address [facility] Co de Phone Number [facility] [address] [facility]. [address] * (ABNORMAL) Hepatic Function Panel (04/23/2025 2:23 AM EDT) Total Bilirubin 1.3 0.0 - 1.5 mg/dL 04/23/2025 3:20 AM EDT [facility] Bilirubin, Direct 0.80(H) 0.00 - 0.40 mg/dL 04/23/2025 3:20 AM EDT [facility] AST 63(H) 13 - 39 U/L 04/23/2025 3:20 AM EDT [facility] ALT 89(H) 7 - 52 U/L 04/23/2025 3:20 AM EDT [facility] Alkaline Phosphatase 63 36 - 125 U/L 04/23/2025 3:20 AM EDT [facility] Total Protein <3.0(L) 6.4 - 8.9 g/dL 04/23/2025 3:20 AM EDT [facility] Albumin 2.0(L) 3.5 - 5.7 g/dL 04/23/2025 3:20 AM EDT [facility] Bilirubin, Indirect 0.50 0.00 - 1.10 mg/dL 04/23/2025 3:20 AM EDT [facility] Plasma 04/23/2025 2:23 AM EDT 04/23/2025 2:35 AM EDT Gloria Chen MD LAB BLOOD ORDERABLES Final Resul t Performing Organization Address [facility]/ZIP Co de Phone Number [facility] [address] [facility]. [address] * (ABNORMAL) CBC (04/23/2025 2:23 AM EDT) WBC 7.7 3.8 - 10.8 10E3/uL 04/23/2025 2:56 AM EDT [facility] RBC 2.86(L) 3.80 - 5.10 10E6/uL 04/23/2025 2:56 AM EDT [facility] Hemoglobin 8.6(L) 11.7 - 15.5 g/dL 04/23/2025 2:56 AM EDT [facility] Hematocrit 24.9(L) 35.0 - 45.0 % 04/23/2025 2:56 AM EDT [facility] MCV 87.3 80.0 - 100.0 fL 04/23/2025 2:56 AM EDT [facility] MCH 30.1 27.0 - 33.0 pg 04/23/2025 2:56 AM EDT [facility] MCHC 34.5 32.0 - 36.0 g/dL 04/23/2025 2:56 AM EDT [facility] RDW 14.6 11.0 - 15.0 % 04/23/2025 2:56 AM EDT [facility] Platelets 60(L) 140 - 400 10E3/uL 04/23/2025 2:56 AM EDT [facility] MPV 10.2 7.5 - 11.5 fL 04/23/2025 2:56 AM EDT [facility] Whole Blood 04/23/2025 2:23 AM EDT 04/23/2025 2:35 AM EDT Giovanny Louis MD LAB BLOOD ORDERABLES Final Res ult [facility] [address] * (ABNORMAL) POC Glucose Monitoring Device (04/23/2025 12:26 AM EDT) [facility] POC Glucose Monitoring Device 241(H) 70 - 100 mg/dL 04/23/2025 12:27 AM EDT [facility] Blood 04/23/2025 12:2 6 AM EDT 04/23/2025 12:27 AM EDT Ludin Jose MD POINT OF CARE TEST ORDERABLES Fi nal Result Performing Organization Address City/[facility]/ZIP Co de Phone Number [facility] [address] * (ABNORMAL) CBC, STAT (04/23/2025 12:03 AM EDT) WBC 7.0 3.8 - 10.8 10E3/uL 04/23/2025 1:08 AM EDT [facility] RBC 1.79(L) 3.80 - 5.10 10E6/uL 04/23/2025 1:08 AM EDT [facility] Hemoglobin 5.5(LL) 11.7 - 15.5 g/dL 04/23/2025 1:08 AM EDT [facility] Comment: Results verified by repeat analysis. Critical Result HGB:5.5 Called to and read back by: MARILEE RAMSEY RN at: 04/23/2025 01:08:31 by:LITA Hematocrit 16.1(L) 35.0 - 45.0 % 04/23/2025 1:08 AM EDT [facility] MCV 90.0 80.0 - 100.0 fL 04/23/2025 1:08 AM EDT [facility] MCH 30.7 27.0 - 33.0 pg 04/23/2025 1:08 AM EDT [facility] MCHC 34.1 32.0 - 36.0 g/dL 04/23/2025 1:08 AM EDT [facility] RDW 16.2(H) 11.0 - 15.0 % 04/23/2025 1:08 AM EDT [facility] Platelets 85(L) 140 - 400 10E3/uL 04/23/2025 1:08 AM EDT [facility] MPV 10.1 7.5 - 11.5 fL 04/23/2025 1:08 AM EDT [facility] Whole Blood 04/23/2025 12:0 3 AM EDT 04/23/2025 12:10 AM EDT us Sergey Altman MD LAB BLOOD ORDERABLES Final Result [facility] [address] [facility] [place] [address], [facility] * Antibody Screen (04/23/2025 12:03 AM EDT) Antibody Screen Negative 04/23/2025 12:59 AM EDT [facility] Blood 04/23/2025 12:0 3 AM EDT 04/23/2025 12:11 AM EDT Narrative [facility] - 04/23/2025 1:06 AM EDT Testing performed by [facility] Transfusion Service Sergey Altman MD BLOOD BANK TEST ORDE [id number] Final Result [facility] [address] [facility]. [address] * ABO/Rh (04/23/2025 12:03 AM EDT) ABO Grouping O 04/23/2025 12:53 AM EDT [facility] Rh Type Positive 04/23/2025 12:53 AM EDT [facility] Blood 04/23/2025 12:0 3 AM EDT 04/23/2025 12:11 AM EDT Sergey Altman MD BLOOD BANK TEST ORDE [id number] Final Result Performing Organization Address City/[facility]/ZIP Co de Phone Number [facility] [address] [facility]. [address] * (ABNORMAL) Lactic Acid, STAT (04/22/2025 11:04 PM EDT) Lactate 2.7(H) 0.5 - 2.2 mmol/L 04/23/2025 12:17 AM EDT [facility] Plasma 04/22/2025 11:0 4 PM EDT 04/22/2025 11:12 PM EDT Sergey Altman MD LAB BLOOD ORDERABLES Final Result [facility] [address] [facility]. [address] * Magnesium, STAT (04/22/2025 11:04 PM EDT) Magnesium 2.0 1.5 - 2.5 mg/dL 04/23/2025 12:20 AM EDT [facility] Plasma 04/22/2025 11:0 4 PM EDT 04/22/2025 11:12 PM EDT us Sergey Altman MD LAB BLOOD ORDERABLES Final Result [facility] [address] [place] [address], [facility] * (ABNORMAL) Renal Function Panel w/EGFR, STAT (04/22/2025 11:04 PM EDT) Sodium 133 133 - 146 mmol/L 04/23/2025 12:20 AM EDT [facility] Potassium 4.8 3.5 - 5.3 mmol/L 04/23/2025 12:20 AM EDT [facility] Chloride 106 98 - 110 mmol/L 04/23/2025 12:20 AM EDT [facility] CO2 23 21 - 33 mmol/L 04/23/2025 12:20 AM EDT [facility] Comment:High lactate dehydro genase concentrations in patient samples may cause falsely increased bicarbonate results. If markedly elevated LDH is observed or suspected, please assess results in conjunction with patient`s clinical presentation. In cases of discrepant results, consider evaluating CO2 in with a blood gas order. Anion Gap 4 3 - 16 mmol/L 04/23/2025 12:20 AM EDT [facility] BUN 40(H) 7 - 25 mg/dL 04/23/2025 12:20 AM EDT [facility] Creatinine 1.34(H) 0.60 - 1.30 mg/dL 04/23/2025 12:20 AM EDT [facility] Glucose 279(H) 70 - 100 mg/dL 04/23/2025 12:20 AM EDT [facility] Calcium 6.8(L) 8.6 - 10.3 mg/dL 04/23/2025 12:20 AM EDT [facility] Phosphorus 4.4 2.1 - 4.7 mg/dL 04/23/2025 12:20 AM EDT [facility] Albumin 2.5(L) 3.5 - 5.7 g/dL 04/23/2025 12:20 AM EDT [facility] Osmolality, Calculated 296 278 - 305 mOsm/kg 04/23/2025 12:20 AM EDT [facility] EGFR 53 04/23/2025 12:20 AM EDT [facility] Comment:As of 2021, the estimated [...] LAB BLOOD ORDERABLES Final Result [facility] [address] * (ABNORMAL) CBC, STAT (04/22/2025 11:04 PM EDT) WBC 6.8 3.8 - 10.8 10E3/uL 04/22/2025 11:41 PM EDT [facility] RBC 2.02(L) 3.80 - 5.10 10E6/uL 04/22/2025 11:41 PM EDT [facility] Hemoglobin 6.1(L) 11.7 - 15.5 g/dL 04/22/2025 11:41 PM EDT [facility] Hematocrit 18.0(L) 35.0 - 45.0 % 04/22/2025 11:41 PM EDT [facility] MCV 89.1 80.0 - 100.0 fL 04/22/2025 11:41 PM EDT [facility] MCH 30.2 27.0 - 33.0 pg 04/22/2025 11:41 PM EDT [facility] MCHC 33.9 32.0 - 36.0 g/dL 04/22/2025 11:41 PM EDT [facility] RDW 16.5(H) 11.0 - 15.0 % 04/22/2025 11:41 PM EDT [facility] Platelets 88(L) 140 - 400 10E3/uL 04/22/2025 11:41 PM EDT [facility] Comment:Specimen checked for clots. None detected. MPV 10.0 7.5 - 11.5 fL 04/22/2025 11:41 PM EDT [facility] Whole Blood 04/22/2025 11:0 4 PM EDT 04/22/2025 11:12 PM EDT us Sergey Altman MD LAB BLOOD ORDERABLES Final Result [facility] [address] * (ABNORMAL) POC Glucose Monitoring Device (04/22/2025 9:12 PM EDT) POC Glucose Monitoring Device 266(H) 70 - 100 mg/dL 04/22/2025 9:13 PM EDT [facility] Blood 04/22/2025 9:12 PM EDT 04/22/2025 9:13 PM EDT us Ludin Jose MD POINT OF CARE TEST ORDERABLES Fi nal Result [facility] [address] * (ABNORMAL) POC Glucose Monitoring Device (04/22/2025 4:33 PM EDT) POC Glucose Monitoring Device 171(H) 70 - 100 mg/dL 04/22/2025 4:34 PM EDT [facility] Blood 04/22/2025 4:33 PM EDT 04/22/2025 4:33 PM EDT Ludin Jose MD POINT OF CARE TEST ORDERABLES Fi nal Result Performing Organization Address [facility] de Phone Number [facility] [address] * (ABNORMAL) POC Glucose Monitoring Device (04/22/2025 12:05 PM EDT) POC Glucose Monitoring Device 114(H) 70 - 100 mg/dL 04/22/2025 12:06 PM EDT [facility] Blood 04/22/2025 12:0 5 PM EDT 04/22/2025 12:05 PM EDT Ludin Jose MD POINT OF CARE TEST ORDERABLES Fi nal Result Performing Organization Address [facility] de Phone Number [facility] [address] * (ABNORMAL) Tacrolimus level (04/22/2025 6:06 AM EDT) Tacrolimus (LC-MS) 15.6(H) 3.0 - 15.0 ng/mL 04/22/2025 10:47 AM EDT [facility] Comment:Performed via liquid chromatography tandem mass spectrometry. Detection limit: 1 ng/mL. Individual target concentrations may vary due to target organ and time after transplant. This test has been developed and its performance characteristics determined by [facility] which is certified under the [...] Final Resul t Performing Organization Address [facility]/State/ZIP Co de Phone Number [facility] [address] [place] [address], [facility] * (ABNORMAL) Renal Function Panel w/EGFR (04/22/2025 6:06 AM EDT) Sodium 137 133 - 146 mmol/L 04/22/2025 7:51 AM EDT [facility] Potassium 4.2 3.5 - 5.3 mmol/L 04/22/2025 7:51 AM EDT [facility] Chloride 108 98 - 110 mmol/L 04/22/2025 7:51 AM EDT [facility] CO2 22 21 - 33 mmol/L 04/22/2025 7:51 AM EDT [facility] Comment:High lactate dehydro genase concentrations in patient samples may cause falsely increased bicarbonate results. If markedly elevated LDH is observed or suspected, please assess results in conjunction with patient`s clinical presentation. In cases of discrepant results, consider evaluating CO2 in with a blood gas order. Anion Gap 7 3 - 16 mmol/L 04/22/2025 7:51 AM EDT [facility] BUN 43(H) 7 - 25 mg/dL 04/22/2025 7:51 AM EDT [facility] Creatinine 1.14 0.60 - 1.30 mg/dL 04/22/2025 7:51 AM EDT [facility] Glucose 80 70 - 100 mg/dL 04/22/2025 7:51 AM EDT [facility] Calcium 7.7(L) 8.6 - 10.3 mg/dL 04/22/2025 7:51 AM EDT [facility] Phosphorus 2.7 2.1 - 4.7 mg/dL 04/22/2025 7:51 AM EDT [facility] Albumin 3.1(L) 3.5 - 5.7 g/dL 04/22/2025 7:51 AM EDT [facility] Osmolality, Calculated 294 278 - 305 mOsm/kg 04/22/2025 7:51 AM EDT [facility] EGFR 64 04/22/2025 7:51 AM EDT [facility] Comment:As of 2021, the estimated [...] ult Performing Organization Address [facility] Co de Phone Number [facility] [address] [place] [address] * (ABNORMAL) Magnesium (04/22/2025 6:06 AM EDT) Magnesium 2.7(H) 1.5 - 2.5 mg/dL 04/22/2025 7:51 AM EDT [facility] Plasma 04/22/2025 6:06 AM EDT 04/22/2025 6:43 AM EDT Giovanny Louis MD LAB BLOOD ORDERABLES Final Res ult Performing Organization Address [facility] de Phone Number [facility] [address] [place] [address]. [address] * (ABNORMAL) Hepatic Function Panel (04/22/2025 6:06 AM EDT) Total Bilirubin 1.9(H) 0.0 - 1.5 mg/dL 04/22/2025 7:51 AM EDT [facility] Bilirubin, Direct 1.11(H) 0.00 - 0.40 mg/dL 04/22/2025 7:51 AM EDT [facility] AST 116(H) 13 - 39 U/L 04/22/2025 7:51 AM EDT [facility] ALT 144(H) 7 - 52 U/L 04/22/2025 7:51 AM EDT [facility] Alkaline Phosphatase 83 36 - 125 U/L 04/22/2025 7:51 AM EDT [facility] Total Protein 4.5(L) 6.4 - 8.9 g/dL 04/22/2025 7:51 AM EDT [facility] Albumin 3.1(L) 3.5 - 5.7 g/dL 04/22/2025 7:51 AM EDT [facility] Bilirubin, Indirect 0.79 0.00 - 1.10 mg/dL 04/22/2025 7:51 AM EDT [facility] Plasma 04/22/2025 6:06 AM EDT 04/22/2025 6:43 AM EDT us Gloria Chen MD LAB BLOOD ORDERABLES Final Resul t Performing Organization Address City/State/[facility] Co de Phone Number [facility] [address] * (ABNORMAL) CBC (04/22/2025 6:06 AM EDT) WBC 4.1 3.8 - 10.8 10E3/uL 04/22/2025 8:39 AM EDT [facility] RBC 3.13(L) 3.80 - 5.10 10E6/uL 04/22/2025 8:39 AM EDT [facility] Hemoglobin 9.6(L) 11.7 - 15.5 g/dL 04/22/2025 8:39 AM EDT [facility] Hematocrit 27.7(L) 35.0 - 45.0 % 04/22/2025 8:39 AM EDT [facility] MCV 88.5 80.0 - 100.0 fL 04/22/2025 8:39 AM EDT [facility] MCH 30.8 27.0 - 33.0 pg 04/22/2025 8:39 AM EDT [facility] MCHC 34.8 32.0 - 36.0 g/dL 04/22/2025 8:39 AM EDT [facility] RDW 16.3(H) 11.0 - 15.0 % 04/22/2025 8:39 AM EDT [facility] Platelets 48(L) 140 - 400 10E3/uL 04/22/2025 8:39 AM EDT [facility] Comment: CNV Specimen checked for clots. None detected. MPV 9.7 7.5 - 11.5 fL 04/22/2025 8:39 AM EDT [facility] Whole Blood 04/22/2025 6:06 AM EDT 04/22/2025 6:43 AM EDT Giovanny Louis MD LAB BLOOD ORDERABLES Final Res ult [facility] [address] [facility]. [address] * POC Glucose Monitoring Device (04/22/2025 5:58 AM EDT) POC Glucose Monitoring Device 80 70 - 100 mg/dL 04/22/2025 5:58 AM EDT [facility] Blood 04/22/2025 5:58 AM EDT 04/22/2025 5:58 AM EDT Ludin Jose MD POINT OF CARE TEST ORDERABLES Fi nal Result Performing Organization Address [facility] Co de Phone Number [facility] [address] [facility]. [address] * (ABNORMAL) POC Glucose Monitoring Device (04/21/2025 11:19 PM EDT) POC Glucose Monitoring Device 109(H) 70 - 100 mg/dL 04/21/2025 11:19 PM EDT [facility] Blood 04/21/2025 11:1 9 PM EDT 04/21/2025 11:19 PM EDT us Ludin Jose MD POINT OF CARE TEST ORDERABLES Fi nal Result Performing Organization Address City/[facility]/ZIP Co de Phone Number [facility] [address] [facility]. [address] * (ABNORMAL) POC Glucose Monitoring Device (04/21/2025 6:17 PM EDT) POC Glucose Monitoring Device 137(H) 70 - 100 mg/dL 04/21/2025 6:18 PM EDT [facility] Blood 04/21/2025 6:17 PM EDT 04/21/2025 6:18 PM EDT us Ludin Jose MD POINT OF CARE TEST ORDERABLES Fi nal Result [facility] [address] [place] [id number], [facility] * VAS Venous Duplex Upper Left (04/21/2025 [...] mg/dL 04/21/2025 12:52 PM EDT [facility] Blood 04/21/2025 12:5 2 PM EDT 04/21/2025 12:52 PM EDT Ludin Jose MD POINT OF CARE TEST ORDERABLES Fi nal Result Performing Organization Address [facility]/ZIP Co de Phone Number [facility] [address] [place] [address]. [address] * Osmolality, urine (04/21/2025 12:31 PM EDT) Osmolality, Ur 518 50 - 1,200 mOsm/kg 04/21/2025 2:35 PM EDT [facility] Urine 04/21/2025 12:3 1 PM EDT 04/21/2025 12:50 PM EDT Marah Hull CNP URINE ORDERABLES Final Result Performing Organization Address [facility] Co de Phone Number [facility] [address] [place] [address]. [address] * Creatinine, urine, random (04/21/2025 12:31 PM EDT) Creatinine, Urine 45.10 mg/dL 04/21/2025 1:50 PM EDT [facility] Comment:Reference range not established for this test. Urine 04/21/2025 12:3 1 PM EDT 04/21/2025 12:50 PM EDT us Marah Hull CNP URINE ORDERABLES Final Result Performing Organization Address [facility] Co de Phone Number [facility] [address] [place] [address]. [address] * Protein, Total urine, random (04/21/2025 12:31 PM EDT) Total Protein, Ur 29 mg/dL 04/21/2025 1:50 PM EDT [facility] Comment:Reference range not established for this test. Urine 04/21/2025 12:3 1 PM EDT 04/21/2025 12:50 PM EDT Marah Hull CNP URINE ORDERABLES Final Result [facility] [address] * Sodium, urine, random (04/21/2025 12:31 PM EDT) Sodium, Ur 77 mmol/L 04/21/2025 1:50 PM EDT [facility] Comment:Reference range not established for this test. Urine 04/21/2025 12:3 1 PM EDT 04/21/2025 12:50 PM EDT Marah Hull CNP URINE ORDERABLES Final Result Performing Organization Address [facility] Co de Phone Number [facility] [address] * US Abdomen Limited (04/21/2025 9:47 [...] EXAM: US ABDOMEN LIMITED EXAM: US DUPLEX [id number] COMPLETE INDICATION: Post-op liver transplant DATE: 04/21/2025 [...] EXAM: US ABDOMEN LIMITED EXAM: US DUPLEX [id number] COMPLETE INDICATION: Post-op liver transplant DATE: 04/21/2025 [...] 04/21/2025 6:27 PM EDT us Marah Hull SENIOR ADMINISTRATIVE ASSISTANT [facility] [place] ORDERABLES Final Resul t * US Duplex [id number] Comp (04/21/2025 9:47 AM EDT) Anatomical Region [...] EXAM: US ABDOMEN LIMITED EXAM: US DUPLEX [id number] COMPLETE INDICATION: Post-op liver transplant DATE: 04/21/2025 [...] EXAM: US ABDOMEN LIMITED EXAM: US DUPLEX [id number] COMPLETE INDICATION: Post-op liver transplant DATE: 04/21/2025 [...] 04/21/2025 6:27 PM EDT Marah Hull CNP [facility] [place] ORDERABLES Final Resul t * (ABNORMAL) Renal Function Panel w/EGFR (04/21/2025 9:00 AM EDT) Sodium 136 133 - 146 mmol/L 04/21/2025 10:11 AM EDT [facility] Potassium 4.1 3.5 - 5.3 mmol/L 04/21/2025 10:11 AM EDT [facility] Chloride 109 98 - 110 mmol/L 04/21/2025 10:11 AM [facility] CO2 21 21 - 33 mmol/L 04/21/2025 10:11 AM [facility] Comment:High lactate dehydro genase concentrations in patient samples may cause falsely increased bicarbonate results. If markedly elevated LDH is observed or suspected, please assess results in conjunction with patient`s clinical presentation. In cases of discrepant results, consider evaluating CO2 in with a blood gas order. Anion Gap 6 3 - 16 mmol/L 04/21/2025 10:11 AM [facility] BUN 64(H) 7 - 25 mg/dL 04/21/2025 10:11 AM [facility] Creatinine 1.40(H) 0.60 - 1.30 mg/dL 04/21/2025 10:11 AM [facility] Glucose 69(L) 70 - 100 mg/dL 04/21/2025 10:11 AM [facility] Calcium 7.4(L) 8.6 - 10.3 mg/dL 04/21/2025 10:11 AM [facility] Phosphorus 3.9 2.1 - 4.7 mg/dL 04/21/2025 10:11 AM [facility] Albumin 3.0(L) 3.5 - 5.7 g/dL 04/21/2025 10:11 AM [facility] Osmolality, Calculated 299 278 - 305 mOsm/kg 04/21/2025 10:11 AM [facility] EGFR 50 04/21/2025 10:11 AM [facility] Comment:As of 2021, the estimated [...] ult Performing Organization Address [facility]/ZIP Co de Phone Number [facility] [address] [facility]. [address] * (ABNORMAL) Magnesium (04/21/2025 9:00 AM EDT) Magnesium 2.7(H) 1.5 - 2.5 mg/dL 04/21/2025 10:11 AM EDT [facility] Plasma 04/21/2025 9:00 AM EDT 04/21/2025 9:23 AM EDT Giovanny Louis MD LAB BLOOD ORDERABLES Final Res ult Performing Organization Address [facility] de Phone Number [facility] [address] [facility]. [address] * (ABNORMAL) Hepatic Function Panel (04/21/2025 9:00 AM EDT) Total Bilirubin 1.6(H) 0.0 - 1.5 mg/dL 04/21/2025 10:11 AM EDT [facility] Bilirubin, Direct 0.91(H) 0.00 - 0.40 mg/dL 04/21/2025 10:11 AM EDT [facility] AST 122(H) 13 - 39 U/L 04/21/2025 10:11 AM EDT [facility] ALT 134(H) 7 - 52 U/L 04/21/2025 10:11 AM EDT [facility] Alkaline Phosphatase 56 36 - 125 U/L 04/21/2025 10:11 AM EDT [facility] Total Protein 4.5(L) 6.4 - 8.9 g/dL 04/21/2025 10:11 AM EDT [facility] Albumin 3.0(L) 3.5 - 5.7 g/dL 04/21/2025 10:11 AM EDT [facility] Bilirubin, Indirect 0.69 0.00 - 1.10 mg/dL 04/21/2025 10:11 AM EDT [facility] Plasma 04/21/2025 9:00 AM EDT 04/21/2025 9:23 AM EDT us Gloria Chen MD LAB BLOOD ORDERABLES Final Resul t [facility] [address] [facility] [place] [address], [facility] * (ABNORMAL) CBC (04/21/2025 9:00 AM EDT) WBC 6.0 3.8 - 10.8 10E3/uL 04/21/2025 9:32 AM EDT [facility] RBC 3.17(L) 3.80 - 5.10 10E6/uL 04/21/2025 9:32 AM EDT [facility] Hemoglobin 9.7(L) 11.7 - 15.5 g/dL 04/21/2025 9:32 AM EDT [facility] Hematocrit 28.4(L) 35.0 - 45.0 % 04/21/2025 9:32 AM EDT [facility] MCV 89.5 80.0 - 100.0 fL 04/21/2025 9:32 AM EDT [facility] MCH 30.7 27.0 - 33.0 pg 04/21/2025 9:32 AM EDT [facility] MCHC 34.2 32.0 - 36.0 g/dL 04/21/2025 9:32 AM EDT [facility] RDW 16.6(H) 11.0 - 15.0 % 04/21/2025 9:32 AM EDT [facility] Platelets 49(L) 140 - 400 10E3/uL 04/21/2025 9:32 AM EDT [facility] Comment: CNV Specimen checked for clots. None detected. MPV 9.5 7.5 - 11.5 fL 04/21/2025 9:32 AM EDT [facility] Whole Blood 04/21/2025 9:00 AM EDT 04/21/2025 9:23 AM EDT us Giovanny Louis MD LAB BLOOD ORDERABLES Final Res ult Performing Organization Address [facility] Co de Phone Number [facility] [address] [facility]. [address] * Tacrolimus level (04/21/2025 9:00 AM EDT) Tacrolimus (LC-MS) 13.2 3.0 - 15.0 ng/mL 04/21/2025 2:34 PM EDT [facility] Comment:Performed via liquid chromatography tandem mass spectrometry. Detection limit: 1 ng/mL. Individual target concentrations may vary due to target organ and time after transplant. This test has been developed and its performance characteristics determined by [facility] which is certified under the [...] ult Performing Organization Address [facility] Co de Phone Number [facility] [address]. [address] * (ABNORMAL) Protime-INR, STAT (04/21/2025 9:00 AM EDT) Protime 17.8(H) 12.1 - 15.1 seconds 04/21/2025 11:05 AM EDT [facility] INR 1.4(H) 0.9 - 1.1 04/21/2025 11:05 AM EDT [facility] Comment: RECOMMENDED THERAPEUTIC RANGES USING INR : Stable oral anticoagulant therapy: 2.0 - 3.0 Mechanical prosthetic heart valve: 2.5 - 3.5 Recurrent acute myocardial infarction: 2.5 - 3.5 Plasma 04/21/2025 9:00 AM EDT 04/21/2025 9:23 AM EDT us Giovanny Louis MD LAB BLOOD ORDERABLES Final Res ult [facility] [address] [place] [address], [facility] * Insert PICC line (04/21/2025 8:37 AM EDT) Chava Quzeada RN - 04/21/2025 8:37 AM EDT Chava Mcgraw RN 04/21/2025 8:38 AM Insert PICC line Date/Time: 04/21/2025 8:37 AM Performed by: Chava Mcgraw RN Authorized by: Ludin Jose MD [place] Protocol: Verbal consent obtained?: Yes Written consent [...] time out verifies correct patient, procedure, equipment, computer customer support specialist and site/side marked as required: Preparation: Preparation: [...] - 100 mg/dL 04/21/2025 4:56 AM EDT [facility] Blood 04/21/2025 4:56 AM EDT 04/21/2025 4:56 AM EDT us Ludin Jose MD POINT OF CARE TEST ORDERABLES Fi nal Result Performing Organization Address [facility] Co de Phone Number [facility] [address] [facility]. [address] * POC Glucose Monitoring Device (04/20/2025 11:27 PM EDT) POC Glucose Monitoring Device 96 70 - 100 mg/dL 04/20/2025 11:30 PM EDT [facility] Blood 04/20/2025 11:2 7 PM EDT 04/20/2025 11:30 PM EDT us Ludin Jose MD POINT OF CARE TEST ORDERABLES Fi nal Result Performing Organization Address [facility] Co de Phone Number [facility] [address] [facility]. [address] * (ABNORMAL) POC Glucose Monitoring Device (04/20/2025 6:30 PM EDT) POC Glucose Monitoring Device 103(H) 70 - 100 mg/dL 04/20/2025 6:31 PM EDT [facility] Blood 04/20/2025 6:30 PM EDT 04/20/2025 6:31 PM EDT us Ludin Jose MD POINT OF CARE TEST ORDERABLES Fi nal Result Performing Organization Address [facility] Co de Phone Number [facility] [address] [facility]. [address] * (ABNORMAL) Renal Function Panel w/EGFR (04/20/2025 6:09 PM EDT) Sodium 133 133 - 146 mmol/L 04/20/2025 7:05 PM EDT [facility] Potassium 5.4(H) 3.5 - 5.3 mmol/L 04/20/2025 7:05 PM [facility] Comment:Hemolysis Present: R esults may be influenced artificially. Recommend recollection as clinically indicated. Chloride 108 98 - 110 mmol/L 04/20/2025 7:05 PM [facility] CO2 19(L) 21 - 33 mmol/L 04/20/2025 7:05 PM [facility] Comment:High lactate dehydro genase concentrations in patient samples may cause falsely increased bicarbonate results. If markedly elevated LDH is observed or suspected, please assess results in conjunction with patient`s clinical presentation. In cases of discrepant results, consider evaluating CO2 in with a blood gas order. Anion Gap 6 3 - 16 mmol/L 04/20/2025 7:05 PM [facility] BUN 57(H) 7 - 25 mg/dL 04/20/2025 7:05 PM [facility] Creatinine 1.25 0.60 - 1.30 mg/dL 04/20/2025 7:05 PM [facility] Glucose 109(H) 70 - 100 mg/dL 04/20/2025 7:05 PM [facility] Calcium 7.0(L) 8.6 - 10.3 mg/dL 04/20/2025 7:05 PM [facility] Phosphorus 4.3 2.1 - 4.7 mg/dL 04/20/2025 7:05 PM [facility] Comment:HEMOLYSIS EVIDENT. R ESULTS MAY BE INFLUENCED. Albumin 2.6(L) 3.5 - 5.7 g/dL 04/20/2025 7:05 PM [facility] Osmolality, Calculated 292 278 - 305 mOsm/kg 04/20/2025 7:05 PM [facility] EGFR 58 04/20/2025 7:05 PM [facility] Comment:As of 2021, the estimated [...] BLOOD ORDERABLES Final Result Performing Organization Address [facility] Co de Phone Number [facility] [address] [facility]. [address] * (ABNORMAL) Magnesium (04/20/2025 6:09 PM EDT) Magnesium 2.6(H) 1.5 - 2.5 mg/dL 04/20/2025 7:05 PM EDT [facility] Comment:HEMOLYSIS EVIDENT. R ESULTS MAY BE INFLUENCED. Plasma 04/20/2025 6:09 PM EDT 04/20/2025 6:13 PM EDT Sergey Altman MD LAB BLOOD ORDERABLES Final Result Performing Organization Address [facility] de Phone Number [facility] [address] [place] [address]. [address] * (ABNORMAL) Hepatic Function Panel (04/20/2025 6:09 PM EDT) Total Bilirubin 1.6(H) 0.0 - 1.5 mg/dL 04/20/2025 7:05 PM EDT [facility] Bilirubin, Direct 0.30 0.00 - 0.40 mg/dL 04/20/2025 7:05 PM EDT [facility] Comment:HEMOLYSIS EVIDENT. D IRECT BILIRUBIN CONCENTRATIONS MAY BE FALSELY DECREASED IN THE PRESENCE OF HEMOLYSIS. INTERPRET WITH CAUTION. AST 162(H) 13 - 39 U/L 04/20/2025 7:05 PM EDT [facility] ALT 137(H) 7 - 52 U/L 04/20/2025 7:05 PM EDT [facility] Alkaline Phosphatase 49 36 - 125 U/L 04/20/2025 7:05 PM EDT [facility] Total Protein 4.1(L) 6.4 - 8.9 g/dL 04/20/2025 7:05 PM EDT [facility] Albumin 2.6(L) 3.5 - 5.7 g/dL 04/20/2025 7:05 PM EDT [facility] Bilirubin, Indirect 1.30(H) 0.00 - 1.10 mg/dL 04/20/2025 7:05 PM EDT [facility] Plasma 04/20/2025 6:09 PM EDT 04/20/2025 6:13 PM EDT Sergey Altman MD LAB BLOOD ORDERABLES Final Result Performing Organization Address [facility] Co de Phone Number [facility] [address] [facility]. [address] * (ABNORMAL) POC Glucose Monitoring Device (04/20/2025 12:31 PM EDT) POC Glucose Monitoring Device 121(H) 70 - 100 mg/dL 04/20/2025 12:32 PM EDT [facility] Blood 04/20/2025 12:3 1 PM EDT 04/20/2025 12:32 PM EDT Ludin Jose MD POINT OF CARE TEST ORDERABLES Fi nal Result Performing Organization Address [facility] Co de Phone Number [facility] [address] [facility]. [address] * Tacrolimus level (04/20/2025 8:20 AM EDT) Tacrolimus (LC-MS) 6.9 3.0 - 15.0 ng/mL 04/20/2025 2:09 PM EDT [facility] Comment:Performed via liquid chromatography tandem mass spectrometry. Detection limit: 1 ng/mL. Individual target concentrations may vary due to target organ and time after transplant. This test has been developed and its performance characteristics determined by [facility] which is certified under the Clinical Laboratory Improvement Amendment of 1988 (CLIA-88) to perform high complexity testing. The test has not been cleared or approved by the US Food and Drug Administration (FDA). The FDA has determined that such clearance is not necessary. The test should be used for clinical purposes and is not regarded as investigational. Whole Blood 04/20/2025 8:2 0 AM EDT 04/20/2025 8:28 AM EDT Giovanny Louis MD LAB BLOOD ORDERABLES Final Res ult Performing Organization Address [facility] Co de Phone Number [facility] [address] [facility]. [address] * (ABNORMAL) POC Glucose Monitoring Device (04/20/2025 5:34 AM EDT) POC Glucose Monitoring Device 144(H) 70 - 100 mg/dL 04/20/2025 5:34 AM EDT [facility] Blood 04/20/2025 5:34 AM EDT 04/20/2025 5:34 AM EDT Ludin Jose MD POINT OF CARE TEST ORDERABLES Fi nal Result Performing Organization Address [facility] de Phone Number [address] * Calcium Free, Serum (04/20/2025 1:33 AM EDT) Free Calcium, Ser 4.80 4.40 - 5.40 mg/dL 04/20/2025 1:50 AM EDT [facility] Comment:Free calcium levels vary inversely with pH by approximately 5% for each 0.1 unit of pH change. Assay results have been normalized to pH = 7.40. Serum 04/20/2025 1:33 AM EDT 04/20/2025 1:39 AM EDT Narrative [facility] - 04/20/2025 1:50 AM EDT This test has been developed and its performance characteristics determined by [facility] which is certified under the Clinical Laboratory Improvement Amendment of 1988 (CLIA-88) to perform high complexity testing. The test has not been cleared or approved by the US Food and Drug Administration (FDA). The FDA has determined that such clearance is not necessary. The test should be used for clinical purposes and is not regarded as investigational. Ludin Jose MD LAB BLOOD ORDERABLES Final Resul t [facility] [address] [place] [address], [facility] * (ABNORMAL) Renal Function Panel w/EGFR (04/20/2025 1:33 AM EDT) Sodium 141 133 - 146 mmol/L 04/20/2025 2:05 AM EDT [facility] Potassium 5.2 3.5 - 5.3 mmol/L 04/20/2025 2:05 AM EDT [facility] Chloride 113(H) 98 - 110 mmol/L 04/20/2025 2:05 AM EDT [facility] CO2 21 21 - 33 mmol/L 04/20/2025 2:05 AM EDT [facility] Comment:High lactate dehydro genase concentrations in patient samples may cause falsely increased bicarbonate results. If markedly elevated LDH is observed or suspected, please assess results in conjunction with patient`s clinical presentation. In cases of discrepant results, consider evaluating CO2 in with a blood gas order. Anion Gap 7 3 - 16 mmol/L 04/20/2025 2:05 AM EDT [facility] BUN 37(H) 7 - 25 mg/dL 04/20/2025 2:05 AM EDT [facility] Creatinine 1.01 0.60 - 1.30 mg/dL 04/20/2025 2:05 AM EDT [facility] Glucose 150(H) 70 - 100 mg/dL 04/20/2025 2:05 AM EDT [facility] Calcium 7.9(L) 8.6 - 10.3 mg/dL 04/20/2025 2:05 AM EDT [facility] Phosphorus 4.9(H) 2.1 - 4.7 mg/dL 04/20/2025 2:05 AM EDT [facility] Albumin 2.8(L) 3.5 - 5.7 g/dL 04/20/2025 2:05 AM EDT [facility] Osmolality, Calculated 304 278 - 305 mOsm/kg 04/20/2025 2:05 AM EDT [facility] EGFR 74 04/20/2025 2:05 AM EDT [facility] Comment:As of 2021, the estimated [...] LAB BLOOD ORDERABLES Final Result [facility] [address] * (ABNORMAL) Protime-INR (04/20/2025 1:33 AM EDT) Protime 21.0(H) 12.1 - 15.1 seconds 04/20/2025 1:51 AM EDT [facility] INR 1.7(H) 0.9 - 1.1 04/20/2025 1:51 AM EDT [facility] Comment: RECOMMENDED THERAPEUTIC RANGES USING INR : Stable oral anticoagulant therapy: 2.0 - 3.0 Mechanical prosthetic heart valve: 2.5 - 3.5 Recurrent acute myocardial infarction: 2.5 - 3.5 Plasma 04/20/2025 1:33 AM EDT 04/20/2025 1:39 AM EDT Sergey Altman MD LAB BLOOD ORDERABLES Final Result [facility] [address] * Magnesium (04/20/2025 1:33 AM EDT) Magnesium 2.4 1.5 - 2.5 mg/dL 04/20/2025 2:05 AM EDT [facility] Plasma 04/20/2025 1:33 AM EDT 04/20/2025 1:39 AM EDT Sergey Altman MD LAB BLOOD ORDERABLES Final Result Performing Organization Address [facility] Co de Phone Number [facility] [address] [facility]. [address] * (ABNORMAL) Hepatic Function Panel (04/20/2025 1:33 AM EDT) Total Bilirubin 1.6(H) 0.0 - 1.5 mg/dL 04/20/2025 2:05 AM EDT [facility] Bilirubin, Direct 0.59(H) 0.00 - 0.40 mg/dL 04/20/2025 2:05 AM EDT [facility] AST 163(H) 13 - 39 U/L 04/20/2025 2:05 AM EDT [facility] ALT 127(H) 7 - 52 U/L 04/20/2025 2:05 AM EDT [facility] Alkaline Phosphatase 54 36 - 125 U/L 04/20/2025 2:05 AM EDT [facility] Total Protein 4.4(L) 6.4 - 8.9 g/dL 04/20/2025 2:05 AM EDT [facility] Albumin 2.8(L) 3.5 - 5.7 g/dL 04/20/2025 2:05 AM EDT [facility] Bilirubin, Indirect 1.01 0.00 - 1.10 mg/dL 04/20/2025 2:05 AM EDT [facility] Plasma 04/20/2025 1:33 AM EDT 04/20/2025 1:39 AM EDT us Sergey Altman MD LAB BLOOD ORDERABLES Final Result [facility] [address] [facility]. [address] * (ABNORMAL) CBC (04/20/2025 1:33 AM EDT) WBC 10.9(H) 3.8 - 10.8 10E3/uL 04/20/2025 1:42 AM EDT [facility] RBC 3.89 3.80 - 5.10 10E6/uL 04/20/2025 1:42 AM EDT [facility] Hemoglobin 11.8 11.7 - 15.5 g/dL 04/20/2025 1:42 AM EDT [facility] Hematocrit 34.9(L) 35.0 - 45.0 % 04/20/2025 1:42 AM EDT [facility] MCV 89.6 80.0 - 100.0 fL 04/20/2025 1:42 AM EDT [facility] MCH 30.3 27.0 - 33.0 pg 04/20/2025 1:42 AM EDT [facility] MCHC 33.8 32.0 - 36.0 g/dL 04/20/2025 1:42 AM EDT [facility] RDW 17.1(H) 11.0 - 15.0 % 04/20/2025 1:42 AM EDT [facility] Platelets 77(L) 140 - 400 10E3/uL 04/20/2025 1:42 AM EDT [facility] MPV 9.8 7.5 - 11.5 fL 04/20/2025 1:42 AM EDT [facility] Whole Blood 04/20/2025 1:33 AM EDT 04/20/2025 1:39 AM EDT us Sergey Altman MD LAB BLOOD ORDERABLES Final Result [facility] [address] [facility]. [address] * (ABNORMAL) POC Glucose Monitoring Device (04/20/2025 1:26 AM EDT) POC Glucose Monitoring Device 156(H) 70 - 100 mg/dL 04/20/2025 1:28 AM EDT [facility] Blood 04/20/2025 1:26 AM EDT 04/20/2025 1:27 AM EDT Ludin Jose MD POINT OF CARE TEST ORDERABLES Fi nal Result [facility] [address] [place] [address], [facility] * (ABNORMAL) Renal Function Panel w/EGFR (04/19/2025 5:27 PM EDT) Sodium 141 133 - 146 mmol/L 04/19/2025 6:23 PM EDT [facility] Potassium 5.4(H) 3.5 - 5.3 mmol/L 04/19/2025 6:23 PM EDT [facility] Chloride 113(H) 98 - 110 mmol/L 04/19/2025 6:23 PM EDT [facility] CO2 21 21 - 33 mmol/L 04/19/2025 6:23 PM EDT [facility] Comment:High lactate dehydro genase concentrations in patient samples may cause falsely increased bicarbonate results. If markedly elevated LDH is observed or suspected, please assess results in conjunction with patient`s clinical presentation. In cases of discrepant results, consider evaluating CO2 in with a blood gas order. Anion Gap 7 3 - 16 mmol/L 04/19/2025 6:23 PM EDT [facility] BUN 31(H) 7 - 25 mg/dL 04/19/2025 6:23 PM EDT [facility] Creatinine 0.92 0.60 - 1.30 mg/dL 04/19/2025 6:23 PM EDT [facility] Glucose 133(H) 70 - 100 mg/dL 04/19/2025 6:23 PM EDT [facility] Calcium 7.8(L) 8.6 - 10.3 mg/dL 04/19/2025 6:23 PM EDT [facility] Phosphorus 4.7 2.1 - 4.7 mg/dL 04/19/2025 6:23 PM EDT [facility] Albumin 2.9(L) 3.5 - 5.7 g/dL 04/19/2025 6:23 PM EDT [facility] Osmolality, Calculated 300 278 - 305 mOsm/kg 04/19/2025 6:23 PM EDT [facility] EGFR 83 04/19/2025 6:23 PM EDT [facility] Comment:As of 2021, the estimated [...] LAB BLOOD ORDERABLES Final Result [facility] [address] * (ABNORMAL) Protime-INR (04/19/2025 5:27 PM EDT) Protime 23.0(H) 12.1 - 15.1 seconds 04/19/2025 5:52 PM EDT [facility] INR 1.9(H) 0.9 - 1.1 04/19/2025 5:52 PM EDT [facility] Comment: RECOMMENDED THERAPEUTIC RANGES USING INR : Stable oral anticoagulant therapy: 2.0 - 3.0 Mechanical prosthetic heart valve: 2.5 - 3.5 Recurrent acute myocardial infarction: 2.5 - 3.5 Plasma 04/19/2025 5:27 PM EDT 04/19/2025 5:31 PM EDT Sergey Altman MD LAB BLOOD ORDERABLES Final Result [facility] [address] * Magnesium (04/19/2025 5:27 PM EDT) Magnesium 2.3 1.5 - 2.5 mg/dL 04/19/2025 6:23 PM EDT [facility] Plasma 04/19/2025 5:27 PM EDT 04/19/2025 5:31 PM EDT Sergey Altman MD LAB BLOOD ORDERABLES Final Result Performing Organization Address City/[facility] Co de Phone Number [facility] [address] * (ABNORMAL) Hepatic Function Panel (04/19/2025 5:27 PM EDT) Total Bilirubin 2.0(H) 0.0 - 1.5 mg/dL 04/19/2025 6:23 PM EDT [facility] Bilirubin, Direct 0.79(H) 0.00 - 0.40 mg/dL 04/19/2025 6:23 PM EDT [facility] AST 178(H) 13 - 39 U/L 04/19/2025 6:23 PM EDT [facility] ALT 131(H) 7 - 52 U/L 04/19/2025 6:23 PM EDT [facility] Alkaline Phosphatase 58 36 - 125 U/L 04/19/2025 6:23 PM EDT [facility] Total Protein 4.5(L) 6.4 - 8.9 g/dL 04/19/2025 6:23 PM EDT [facility] Albumin 2.9(L) 3.5 - 5.7 g/dL 04/19/2025 6:23 PM EDT [facility] Bilirubin, Indirect 1.21(H) 0.00 - 1.10 mg/dL 04/19/2025 6:23 PM EDT [facility] Plasma 04/19/2025 5:27 PM EDT 04/19/2025 5:31 PM EDT Sergey Altman MD LAB BLOOD ORDERABLES Final Result [facility] [address] [place] [address], [facility] * (ABNORMAL) CBC (04/19/2025 5:27 PM EDT) WBC 13.3(H) 3.8 - 10.8 10E3/uL 04/19/2025 5:37 PM EDT [facility] RBC 4.08 3.80 - 5.10 10E6/uL 04/19/2025 5:37 PM EDT [facility] Hemoglobin 12.5 11.7 - 15.5 g/dL 04/19/2025 5:37 PM EDT [facility] Hematocrit 37.1 35.0 - 45.0 % 04/19/2025 5:37 PM EDT [facility] MCV 90.8 80.0 - 100.0 fL 04/19/2025 5:37 PM EDT [facility] MCH 30.5 27.0 - 33.0 pg 04/19/2025 5:37 PM EDT [facility] MCHC 33.6 32.0 - 36.0 g/dL 04/19/2025 5:37 PM EDT [facility] RDW 16.7(H) 11.0 - 15.0 % 04/19/2025 5:37 PM EDT [facility] Platelets 77(L) 140 - 400 10E3/uL 04/19/2025 5:37 PM EDT [facility] MPV 9.1 7.5 - 11.5 fL 04/19/2025 5:37 PM EDT [facility] Whole Blood 04/19/2025 5:27 PM EDT 04/19/2025 5:31 PM EDT Sergey Altman MD LAB BLOOD ORDERABLES Final Result [facility] [address] [place] [address], [facility] * (ABNORMAL) POC Glucose Monitoring Device (04/19/2025 5:25 PM EDT) POC Glucose Monitoring Device 118(H) 70 - 100 mg/dL 04/19/2025 5:26 PM EDT [facility] Blood 04/19/2025 5:25 PM EDT 04/19/2025 5:26 PM EDT Ludin Jose MD POINT OF CARE TEST ORDERABLES Fi nal Result Performing Organization Address City/[facility]/ZIP Co de Phone Number [facility] [address] * Coccidioides Antibody Reflexive Panel (04/19/2025 12:41 PM EDT) Coccidioides IgM 0.7 <=0.9 IV 04/23/20 7:41 PM EDT [facility] Comment: INTERPRETIVE INFORMATION: Coccidioides Antibody, [...] 0.2 <=0.9 IV 04/23/20 7:41 PM EDT [facility] Comment: INTERPRETIVE INFORMATION: Coccidioides Antibody, Ig.9 [...] represented in the [facility] tests. Effective March [id number] Coccidioides Ab, IgG by [facility] will be made non-orderable. [facility] offers order code [id number] Coccidioides Abs, IgG/IgM, EIA. For further information, please contact your local [facility]. Serum 04/19/2025 12:4 1 PM EDT 04/23/2025 8:07 PM EDT [facility]arrative [facility] - 04/23/2025 8:07 PM EDT PERFORMED AT: [address] [employer] [address] [place] [address] [id number] CNC CUTTING OPERATOR: Mark Atwood [facility] PHONE: [phone] us Shannan Stacy PharmD LAB BLOOD ORDERABLES Final Result Performing Organization Address City/State/[facility] Co de Phone Number [facility] [address] * (ABNORMAL) Renal Function Panel w/EGFR (04/19/2025 12:41 PM EDT) Sodium 139 133 - 146 mmol/L 04/19/2025 1:22 PM EDT [facility] Potassium 5.2 3.5 - 5.3 mmol/L 04/19/2025 1:22 PM EDT [facility] Chloride 112(H) 98 - 110 mmol/L 04/19/2025 1:22 PM EDT [facility] CO2 23 21 - 33 mmol/L 04/19/2025 1:22 PM EDT [facility] Comment:High lactate dehydro genase concentrations in patient samples may cause falsely increased bicarbonate results. If markedly elevated LDH is observed or suspected, please assess results in conjunction with patient`s clinical presentation. In cases of discrepant results, consider evaluating CO2 in with a blood gas order. Anion Gap 4 3 - 16 mmol/L 04/19/2025 1:22 PM EDT [facility] BUN 27(H) 7 - 25 mg/dL 04/19/2025 1:22 PM EDT [facility] Creatinine 0.85 0.60 - 1.30 mg/dL 04/19/2025 1:22 PM EDT [facility] Glucose 120(H) 70 - 100 mg/dL 04/19/2025 1:22 PM EDT [facility] Calcium 7.6(L) 8.6 - 10.3 mg/dL 04/19/2025 1:22 PM EDT [facility] Phosphorus 4.1 2.1 - 4.7 mg/dL 04/19/2025 1:22 PM EDT [facility] Albumin 2.9(L) 3.5 - 5.7 g/dL 04/19/2025 1:22 PM EDT [facility] Osmolality, Calculated 294 278 - 305 mOsm/kg 04/19/2025 1:22 PM EDT [facility] EGFR >90 04/19/2025 1:22 PM EDT [facility] Comment: As of 2021, the [...] LAB BLOOD ORDERABLES Final Result [facility] [address] * (ABNORMAL) Protime-INR (04/19/2025 12:41 PM EDT) Protime 22.0(H) 12.1 - 15.1 seconds 04/19/2025 1:38 PM EDT [facility] INR 1.8(H) 0.9 - 1.1 04/19/2025 1:38 PM EDT [facility] Comment: RECOMMENDED THERAPEUTIC RANGES USING INR : Stable oral anticoagulant therapy: 2.0 - 3.0 Mechanical prosthetic heart valve: 2.5 - 3.5 Recurrent acute myocardial infarction: 2.5 - 3.5 Plasma 04/19/2025 12:4 1 PM EDT 04/19/2025 12:50 PM EDT Sergey Altman MD LAB BLOOD ORDERABLES Final Result [facility] [address] [facility]. [address] * Magnesium (04/19/2025 12:41 PM EDT) Pathologist [facility] Magnesium 2.2 1.5 - 2.5 mg/dL 04/19/2025 1:22 PM EDT [facility] Plasma 04/19/2025 12:4 1 PM EDT 04/19/2025 12:50 PM EDT Sergey Altman MD LAB BLOOD ORDERABLES Final Result [facility] [address] [facility]. [address] * (ABNORMAL) Hepatic Function Panel (04/19/2025 12:41 PM EDT) Total Bilirubin 2.1(H) 0.0 - 1.5 mg/dL 04/19/2025 1:22 PM EDT [facility] Bilirubin, Direct 0.81(H) 0.00 - 0.40 mg/dL 04/19/2025 1:22 PM EDT [facility] AST 185(H) 13 - 39 U/L 04/19/2025 1:22 PM EDT [facility] ALT 142(H) 7 - 52 U/L 04/19/2025 1:22 PM EDT [facility] Alkaline Phosphatase 57 36 - 125 U/L 04/19/2025 1:22 PM EDT [facility] Total Protein 4.7(L) 6.4 - 8.9 g/dL 04/19/2025 1:22 PM EDT [facility] Albumin 2.9(L) 3.5 - 5.7 g/dL 04/19/2025 1:22 PM EDT [facility] Bilirubin, Indirect 1.29(H) 0.00 - 1.10 mg/dL 04/19/2025 1:22 PM EDT [facility] Plasma 04/19/2025 12:4 1 PM EDT 04/19/2025 12:50 PM EDT Sergey Altman MD LAB BLOOD ORDERABLES Final Result [facility] [address] [place] [address], [facility] * (ABNORMAL) CBC (04/19/2025 12:41 PM EDT) WBC 15.6(H) 3.8 - 10.8 10E3/uL 04/19/2025 1:26 PM EDT [facility] RBC 4.24 3.80 - 5.10 10E6/uL 04/19/2025 1:26 PM EDT [facility] Hemoglobin 12.9 11.7 - 15.5 g/dL 04/19/2025 1:26 PM EDT [facility] Hematocrit 37.8 35.0 - 45.0 % 04/19/2025 1:26 PM EDT [facility] MCV 89.2 80.0 - 100.0 fL 04/19/2025 1:26 PM EDT [facility] MCH 30.4 27.0 - 33.0 pg 04/19/2025 1:26 PM EDT [facility] MCHC 34.1 32.0 - 36.0 g/dL 04/19/2025 1:26 PM EDT [facility] RDW 16.4(H) 11.0 - 15.0 % 04/19/2025 1:26 PM EDT [facility] Platelets 95(L) 140 - 400 10E3/uL 04/19/2025 1:26 PM EDT [facility] MPV 9.3 7.5 - 11.5 fL 04/19/2025 1:26 PM EDT [facility] Whole Blood 04/19/2025 12:4 1 PM EDT 04/19/2025 12:50 PM EDT us Sergey Altman MD LAB BLOOD ORDERABLES Final Result [facility] [id number] [facility]. [address] * (ABNORMAL) POC Glucose Monitoring Device (04/19/2025 12:37 PM EDT) [facility] POC Glucose Monitoring Device 109(H) 70 - 100 mg/dL 04/19/2025 12:37 PM EDT [facility] Blood 04/19/2025 12:3 7 PM EDT 04/19/2025 12:37 PM EDT us Ludin Jose MD POINT OF CARE TEST ORDERABLES Fi nal Result Performing Organization Address City/[facility]/ZIP Co de Phone Number [facility] [address] [facility]. [address] * US Duplex Ngm-Tio-Udpfgxw Comp (04/19/2025 11:03 AM EDT) Anatomical Region [...] EXAM: US ABDOMEN LIMITED EXAM: US DUPLEX [id number] COMPLETE INDICATION: Other - Must specify in [...] EXAM: US ABDOMEN LIMITED EXAM: US DUPLEX [id number] COMPLETE INDICATION: Other - Must specify in [...] EXAM: US ABDOMEN LIMITED EXAM: US DUPLEX [id number] COMPLETE INDICATION: Other - Must specify in [...] EXAM: US ABDOMEN LIMITED EXAM: US DUPLEX [id number] COMPLETE INDICATION: Other - Must specify in [...] hepatic vasculature with antegrade flow. Approved by Asir Chishti, MD on 04/19/2025 11:56 AM EDT I have personally reviewed the images and I agree with this report. Report Verified by: Francisco Kerr MD at 04/19/2025 2:31 PM EDT Jostin Hess MD [facility] [place]LES Fin al Result * (ABNORMAL) Tacrolimus level (04/19/2025 8:37 AM EDT) Tacrolimus (LC-MS) <1.0(L) 3.0 - 15.0 ng/mL 04/19/2025 2:02 PM EDT [facility] Comment:Performed via liquid chromatography tandem mass spectrometry. Detection limit: 1 ng/mL. Individual target concentrations may vary due to target organ and time after transplant. This test has been developed and its performance characteristics determined by [facility] which is certified under the [...] ORDERABLES Final Res ult Performing Organization Address City/[facility]/ZIP Co de Phone Number [facility] [address] * Lactic Acid (04/19/2025 8:37 AM EDT) Lactate 1.3 0.5 - 2.2 mmol/L 04/19/2025 9:45 AM EDT [facility] Plasma 04/19/2025 8:37 AM EDT 04/19/2025 8:41 AM EDT Sergey Altman MD LAB BLOOD ORDERABLES Final Result Performing Organization Address City/[facility]/ZIP Co de Phone Number [facility] [address] * (ABNORMAL) POC Glucose Monitoring Device (04/19/2025 8:33 AM EDT) POC Glucose Monitoring Device 105(H) 70 - 100 mg/dL 04/19/2025 8:35 AM EDT [facility] Blood 04/19/2025 8:33 AM EDT 04/19/2025 8:34 AM EDT Ludin Jose MD POINT OF CARE TEST ORDERABLES Fi nal Result Performing Organization Address [facility] Co de Phone Number [facility] [address] [facility]. [address] * Lactic Acid (04/19/2025 6:33 AM EDT) Lactate 1.4 0.5 - 2.2 mmol/L 04/19/2025 7:55 AM EDT [facility] Plasma 04/19/2025 6:33 AM EDT 04/19/2025 7:34 AM EDT Sergey Altman MD LAB BLOOD ORDERABLES Final Result Performing Organization Address [facility] Co de Phone Number [facility] [address] [facility]. [address] * (ABNORMAL) Renal Function Panel w/EGFR (04/19/2025 6:33 AM EDT) Sodium 139 133 - 146 mmol/L 04/19/2025 8:23 AM EDT [facility] Potassium 5.4(H) 3.5 - 5.3 mmol/L 04/19/2025 8:23 AM EDT [facility] Chloride 111(H) 98 - 110 mmol/L 04/19/2025 8:23 AM EDT [facility] CO2 23 21 - 33 mmol/L 04/19/2025 8:23 AM EDT [facility] Comment:High lactate dehydro genase concentrations in patient samples may cause falsely increased bicarbonate results. If markedly elevated LDH is observed or suspected, please assess results in conjunction with patient`s clinical presentation. In cases of discrepant results, consider evaluating CO2 in with a blood gas order. Anion Gap 5 3 - 16 mmol/L 04/19/2025 8:23 AM EDT [facility] BUN 21 7 - 25 mg/dL 04/19/2025 8:23 AM EDT [facility] Creatinine 0.76 0.60 - 1.30 mg/dL 04/19/2025 8:23 AM EDT [facility] Glucose 118(H) 70 - 100 mg/dL 04/19/2025 8:23 AM EDT [facility] Calcium 7.7(L) 8.6 - 10.3 mg/dL 04/19/2025 8:23 AM EDT [facility] Phosphorus 3.7 2.1 - 4.7 mg/dL 04/19/2025 8:23 AM EDT [facility] Albumin 2.9(L) 3.5 - 5.7 g/dL 04/19/2025 8:23 AM EDT [facility] Osmolality, Calculated 292 278 - 305 mOsm/kg 04/19/2025 8:23 AM EDT [facility] EGFR >90 04/19/2025 8:23 AM EDT [facility] Comment: As of 2021, the [...] BLOOD ORDERABLES Final Result Performing Organization Address [facility] Co de Phone Number [facility] [address] [facility]. [address] * (ABNORMAL) Protime-INR (04/19/2025 6:33 AM EDT) Protime 23.4(H) 12.1 - 15.1 seconds 04/19/2025 8:20 AM EDT [facility] INR 1.9(H) 0.9 - 1.1 04/19/2025 8:20 AM EDT [facility] Comment: RECOMMENDED THERAPEUTIC RANGES USING INR : Stable oral anticoagulant therapy: 2.0 - 3.0 Mechanical prosthetic heart valve: 2.5 - 3.5 Recurrent acute myocardial infarction: 2.5 - 3.5 Plasma 04/19/2025 6:33 AM EDT 04/19/2025 7:34 AM EDT Sergey Altman MD LAB BLOOD ORDERABLES Final Result Performing Organization Address [facility] Co de Phone Number [facility] [address] [facility]. [address] * Magnesium (04/19/2025 6:33 AM EDT) Magnesium 2.2 1.5 - 2.5 mg/dL 04/19/2025 8:23 AM EDT [facility] Plasma 04/19/2025 6:33 AM EDT 04/19/2025 7:34 AM EDT Sergey Altman MD LAB BLOOD ORDERABLES Final Result Performing Organization Address City/[facility] Co de Phone Number [facility] [address] [facility]. [address] * (ABNORMAL) Hepatic Function Panel (04/19/2025 6:33 AM EDT) Total Bilirubin 2.7(H) 0.0 - 1.5 mg/dL 04/19/2025 8:23 AM EDT [facility] Bilirubin, Direct 1.01(H) 0.00 - 0.40 mg/dL 04/19/2025 8:23 AM EDT [facility] AST 193(H) 13 - 39 U/L 04/19/2025 8:23 AM EDT [facility] ALT 144(H) 7 - 52 U/L 04/19/2025 8:23 AM EDT [facility] Alkaline Phosphatase 56 36 - 125 U/L 04/19/2025 8:23 AM EDT [facility] Total Protein 4.8(L) 6.4 - 8.9 g/dL 04/19/2025 8:23 AM EDT [facility] Albumin 2.9(L) 3.5 - 5.7 g/dL 04/19/2025 8:23 AM EDT [facility] Bilirubin, Indirect 1.69(H) 0.00 - 1.10 mg/dL 04/19/2025 8:23 AM EDT [facility] Plasma 04/19/2025 6:33 AM EDT 04/19/2025 7:34 AM EDT Sergey Altman MD LAB BLOOD ORDERABLES Final Result Performing Organization Address City/State/[facility] Co de Phone Number [facility] [address] [address] * (ABNORMAL) CBC (04/19/2025 6:33 AM EDT) WBC 13.7(H) 3.8 - 10.8 10E3/uL 04/19/2025 8:20 AM EDT [facility] RBC 4.31 3.80 - 5.10 10E6/uL 04/19/2025 8:20 AM EDT [facility] Hemoglobin 13.0 11.7 - 15.5 g/dL 04/19/2025 8:20 AM EDT [facility] Hematocrit 38.1 35.0 - 45.0 % 04/19/2025 8:20 AM EDT [facility] MCV 88.3 80.0 - 100.0 fL 04/19/2025 8:20 AM EDT [facility] MCH 30.1 27.0 - 33.0 pg 04/19/2025 8:20 AM EDT [facility] MCHC 34.1 32.0 - 36.0 g/dL 04/19/2025 8:20 AM EDT [facility] RDW 16.3(H) 11.0 - 15.0 % 04/19/2025 8:20 AM EDT [facility] Platelets 90(L) 140 - 400 10E3/uL 04/19/2025 8:20 AM EDT [facility] Comment:Specimen checked for clots. None detected. MPV 9.5 7.5 - 11.5 fL 04/19/2025 8:20 AM EDT [facility] Whole Blood 04/19/2025 6:33 AM EDT 04/19/2025 7:34 AM EDT us Sergey Altman MD LAB BLOOD ORDERABLES Final Result Performing Organization Address City/[facility]/ZIP Co de Phone Number [facility] [address] * (ABNORMAL) POC Glucose Monitoring Device (04/19/2025 6:24 AM EDT) [facility] POC Glucose Monitoring Device 113(H) 70 - 100 mg/dL 04/19/2025 6:27 AM EDT [facility] Blood 04/19/2025 6:24 AM EDT 04/19/2025 6:27 AM EDT Ludin Jose MD POINT OF CARE TEST ORDERABLES Fi nal Result Performing Organization Address City/[facility]/ZIP Co de Phone Number [facility] [address] [facility]. [address] * Prepare Cryoprecipitate, 1 Units (04/19/2025 6:16 AM EDT) Pathologist [facility] Product Code Z6215C65 HCLL Unit Number [id number] HCLL Dispense Status Presumed Transfused_PT HCLL Blood Expiration Date [id number] HCLL Coding System [id number] HCLL Product Code Q5501B92 HCLL Unit Number [id number] HCLL Dispense Status Presumed Transfused_PT HCLL Blood Expiration Date [id number] HCLL Coding System [id number] HCLL Blood Bank Product Mario Chan MD BLOOD BANK PRODUCT ORDERAB LES Final Result HCLL * Prepare Platelets, leukoreduced, 2 Units (04/19/2025 6:16 AM EDT) Product Code CQ899U05 HCLL Unit Number [id number] HCLL Dispense Status Presumed Transfused_PT HCLL Blood Expiration Date [id number] HCLL Coding System [id number] HCLL Product Code G2164V35 HCLL Unit Number [id number] HCLL Dispense Status Presumed Transfused_PT HCLL Blood Expiration Date 943883072700 HCLL Coding System [id number] HCLL Blood Bank Product Mario Chan MD BLOOD BANK PRODUCT ORDERAB LES Final Result Performing Organization Address [facility] Co de Phone Number HCLL * Prepare Fresh Frozen Plasma, 5 Units (04/19/2025 6:15 AM EDT) Product Code Y5251V03 HCLL Unit Number [id number] HCLL Dispense Status Presumed Transfused_PT HCLL Blood Expiration Date HCLL Coding System [id number] HCLL Product Code C1591E03 HCLL Unit Number [id number] HCLL Dispense Status Released from Crossmatch_RE HCLL Blood Expiration Date HCLL Coding System VSCG287 HCLL Product Code N2354P99 HCLL Unit Number [id number] HCLL Dispense Status Presumed Transfused_PT HCLL Blood Expiration Date HCLL Coding System GXNL625 HCLL Product Code D7625U19 HCLL Unit Number [id number] HCLL Dispense Status Presumed Transfused_PT HCLL Blood Expiration Date HCLL Coding System WOZQ521 HCLL Product Code Y6371E26 HCLL Unit Number [id number] HCLL Dispense Status Presumed Transfused_PT HCLL Blood Expiration Date [id number] HCLL Coding System QSVY576 HCLL Blood Bank Product us Becky Goodman MD BLOOD BANK PRODUCT ORDERABLES Final Result Performing Organization Address [facility]/ZIP Co de Phone Number [facility] * Prepare RBC, leukoreduced, 5 Units (04/19/2025 6:15 AM EDT) Product Code V8613S42 HCLL Unit Number [id number] HCLL Dispense Status Presumed Transfused_PT HCLL Blood Expiration Date HCLL Coding System QDDV122 HCLL Product Code Q4965S05 HCLL Unit Number [id number] HCLL Dispense Status Presumed Transfused_PT HCLL Blood Expiration Date HCLL Coding System JHYR365 HCLL Product Code G3352P04 HCLL Unit Number [id number] HCLL Dispense Status Released from Crossmatch_RE HCLL Blood Expiration Date HCLL Coding System YMWW045 HCLL Product Code K1070N78 HCLL Unit Number [id number] HCLL Dispense Status Presumed Transfused_PT HCLL Blood Expiration Date HCLL Coding System ILLX263 HCLL Product Code A2888G77 HCLL Unit Number [id number] HCLL Dispense Status Released from Crossmatch_RE HCLL Blood Expiration Date HCLL Coding System TCSH618 HCLL Blood Bank Product Becky Goodman MD BLOOD BANK PRODUCT ORDERABLES Final Result HCLL * (ABNORMAL) POC Glucose Monitoring Device (04/19/2025 4:25 AM EDT) POC Glucose Monitoring Device 120(H) 70 - 100 mg/dL 04/19/2025 4:25 AM EDT [facility] Blood 04/19/2025 4:25 AM EDT 04/19/2025 4:25 AM EDT us Ludin Jose MD POINT OF CARE TEST ORDERABLES Fi nal Result Performing Organization Address [facility] de Phone Number [facility] [address] [facility]. [address] * POC Glucose Monitoring Device (04/19/2025 4:21 AM EDT) POC Glucose Monitoring Device 89 70 - 100 mg/dL 04/19/2025 4:24 AM EDT [facility] Blood 04/19/2025 4:21 AM EDT 04/19/2025 4:24 AM EDT us Ludin Jose MD POINT OF CARE TEST ORDERABLES Fi nal Result Performing Organization Address [facility] de Phone Number [facility] [address] [facility]. [address] * X-ray Portable Chest (04/19/2025 2:50 [...] Mohan Khan MD IMG DIAGNOSTIC IMAGING ORDE [facility] Final Result * (ABNORMAL) High Sensitivity Troponin (04/19/2025 2:27 AM EDT) High Sensitivity Troponin 15(H) 0 - 14 ng/L 04/19/2025 3:04 AM EDT [facility] Serum 04/19/2025 2:27 AM EDT 04/19/2025 2:41 AM EDT Mohan Khan MD LAB BLOOD ORDERABLES Final Result [facility] [address] * Lactic Acid (04/19/2025 2:27 AM EDT) Lactate 1.5 0.5 - 2.2 mmol/L 04/19/2025 3:01 AM EDT [facility] Plasma 04/19/2025 2:27 AM EDT 04/19/2025 2:41 AM EDT us Sergey Altman MD LAB BLOOD ORDERABLES Final Result Performing Organization Address [facility]/ZIP Co de Phone Number [facility] [address] * ECG 12-lead (MUSE) (04/19/2025 2:21 AM EDT) 04/19/2025 2:21 AM EDT Narrative MUSE - 04/19/2025 11:23 AM EDT Ventricular Rate: 80 BPM Atrial Rate: 80 BPM P-R Interval: 132 ms QRS Duration: 74 ms QT: 426 ms QTc: 491 ms P [place]: 45 degrees R [place]: 13 degrees T [place]: 27 degrees Diagnosis Line: NORMAL SINUS RHYTHM ^ LOW VOLTAGE QRS COMPLEXES ^ PROLONGED QTC ^ ^ Confirmed by Anthony RAMOS MD ([facility]) on 04/19/2025 11:23:28 AM us Mohan Khan MD ECG ORDERABLES Final Resul t Performing Organization Address [facility] Co de Phone Number MUSE * (ABNORMAL) POC Glucose Monitoring Device (04/19/2025 2:17 AM EDT) Pathologist [facility] POC Glucose Monitoring Device 120(H) 70 - 100 mg/dL 04/19/2025 2:18 AM EDT [facility] Blood 04/19/2025 2:17 AM EDT 04/19/2025 2:18 AM EDT Ludin Jose MD POINT OF CARE TEST ORDERABLES Fi nal Result Performing Organization Address City/[facility]/ZIP Co de Phone Number [facility] [address] [place] [address], [place] * (ABNORMAL) POC Glucose Monitoring Device (04/19/2025 12:23 AM EDT) [facility] POC Glucose Monitoring Device 119(H) 70 - 100 mg/dL 04/19/2025 12:25 AM EDT [facility] Blood 04/19/2025 12:2 3 AM EDT 04/19/2025 12:25 AM EDT Ludin Jose MD POINT OF CARE TEST ORDERABLES Fi nal Result Performing Organization Address City/[facility]/ZIP Co de Phone Number [facility] [address] [facility]. [address] * Lactic Acid (04/18/2025 11:19 PM EDT) [facility] Lactate 1.6 0.5 - 2.2 mmol/L 04/18/2025 11:57 PM EDT [facility] Plasma 04/18/2025 11:1 9 PM EDT 04/18/2025 11:26 PM EDT Sergey Altman MD LAB BLOOD ORDERABLES Final Result Performing Organization Address City/[facility]/ZIP Co de Phone Number [facility] [address] [facility]. [address] * (ABNORMAL) Renal Function Panel w/EGFR (04/18/2025 11:19 PM EDT) [facility] Sodium 139 133 - 146 mmol/L 04/18/2025 11:57 PM EDT [facility] Potassium 3.7 3.5 - 5.3 mmol/L 04/18/2025 11:57 PM EDT [facility] Chloride 109 98 - 110 mmol/L 04/18/2025 11:57 PM EDT [facility] CO2 23 21 - 33 mmol/L 04/18/2025 11:57 PM EDT [facility] Comment:High lactate dehydro genase concentrations in patient samples may cause falsely increased bicarbonate results. If markedly elevated LDH is observed or suspected, please assess results in conjunction with patient`s clinical presentation. In cases of discrepant results, consider evaluating CO2 in with a blood gas order. Anion Gap 7 3 - 16 mmol/L 04/18/2025 11:57 PM EDT [facility] BUN 14 7 - 25 mg/dL 04/18/2025 11:57 PM EDT [facility] Creatinine 0.65 0.60 - 1.30 mg/dL 04/18/2025 11:57 PM EDT [facility] Glucose 156(H) 70 - 100 mg/dL 04/18/2025 11:57 PM EDT [facility] Calcium 7.8(L) 8.6 - 10.3 mg/dL 04/18/2025 11:57 PM EDT [facility] Phosphorus 3.5 2.1 - 4.7 mg/dL 04/18/2025 11:57 PM EDT [facility] Albumin 2.8(L) 3.5 - 5.7 g/dL 04/18/2025 11:57 PM EDT [facility] Osmolality, Calculated 292 278 - 305 mOsm/kg 04/18/2025 11:57 PM EDT [facility] EGFR >90 04/18/2025 11:57 PM EDT [facility] Comment: As of 2021, the [...] LAB BLOOD ORDERABLES Final Result [facility] [address] [facility]. [address] * (ABNORMAL) Protime-INR (04/18/2025 11:19 PM EDT) Protime 21.8(H) 12.1 - 15.1 seconds 04/18/2025 11:39 PM EDT [facility] INR 1.8(H) 0.9 - 1.1 04/18/2025 11:39 PM EDT [facility] Comment: RECOMMENDED THERAPEUTIC RANGES USING INR : Stable oral anticoagulant therapy: 2.0 - 3.0 Mechanical prosthetic heart valve: 2.5 - 3.5 Recurrent acute myocardial infarction: 2.5 - 3.5 Plasma 04/18/2025 11:1 9 PM EDT 04/18/2025 11:26 PM EDT us Sergey Altman MD LAB BLOOD ORDERABLES Final Result [facility] [address] [facility]. [address] * Magnesium (04/18/2025 11:19 PM EDT) Magnesium 2.2 1.5 - 2.5 mg/dL 04/18/2025 11:57 PM EDT [facility] Plasma 04/18/2025 11:1 9 PM EDT 04/18/2025 11:26 PM EDT Sergey Altman MD LAB BLOOD ORDERABLES Final Result [facility] [address] [facility]. [address] * (ABNORMAL) Hepatic Function Panel (04/18/2025 11:19 PM EDT) Total Bilirubin 4.5(H) 0.0 - 1.5 mg/dL 04/18/2025 11:57 PM EDT [facility] Bilirubin, Direct 2.41(H) 0.00 - 0.40 mg/dL 04/18/2025 11:57 PM EDT [facility] AST 203(H) 13 - 39 U/L 04/18/2025 11:57 PM EDT [facility] ALT 139(H) 7 - 52 U/L 04/18/2025 11:57 PM EDT [facility] Alkaline Phosphatase 55 36 - 125 U/L 04/18/2025 11:57 PM EDT [facility] Total Protein 4.3(L) 6.4 - 8.9 g/dL 04/18/2025 11:57 PM EDT [facility] Albumin 2.8(L) 3.5 - 5.7 g/dL 04/18/2025 11:57 PM EDT [facility] Bilirubin, Indirect 2.09(H) 0.00 - 1.10 mg/dL 04/18/2025 11:57 PM EDT [facility] Plasma 04/18/2025 11:1 9 PM EDT 04/18/2025 11:26 PM EDT Sergey Altman MD LAB BLOOD ORDERABLES Final Result [facility] [address] * (ABNORMAL) CBC (04/18/2025 11:19 PM EDT) WBC 7.8 3.8 - 10.8 10E3/uL 04/18/2025 11:36 PM EDT [facility] RBC 4.21 3.80 - 5.10 10E6/uL 04/18/2025 11:36 PM EDT [facility] Hemoglobin 12.9 11.7 - 15.5 g/dL 04/18/2025 11:36 PM EDT [facility] Hematocrit 37.1 35.0 - 45.0 % 04/18/2025 11:36 PM EDT [facility] MCV 88.2 80.0 - 100.0 fL 04/18/2025 11:36 PM EDT [facility] MCH 30.7 27.0 - 33.0 pg 04/18/2025 11:36 PM EDT [facility] MCHC 34.8 32.0 - 36.0 g/dL 04/18/2025 11:36 PM EDT [facility] RDW 16.6(H) 11.0 - 15.0 % 04/18/2025 11:36 PM EDT [facility] Platelets 69(L) 140 - 400 10E3/uL 04/18/2025 11:36 PM EDT [facility] MPV 9.1 7.5 - 11.5 fL 04/18/2025 11:36 PM EDT [facility] Whole Blood 04/18/2025 11:1 9 PM EDT 04/18/2025 11:26 PM EDT Sergey Altman MD LAB BLOOD ORDERABLES Final Result Performing Organization Address City/State/[facility] Co de Phone Number [facility] [address] * (ABNORMAL) Blood gas, arterial (04/18/2025 10:46 PM EDT) O2 Sat, Arterial 100 04/18/2025 10:52 PM EDT [facility] FIO2 40 04/18/2025 10:52 PM EDT [facility] pH, Arterial 7.38 7.35 - 7.45 04/18/2025 10:52 PM EDT [facility] pCO2, Arterial 38 35 - 45 mm Hg 04/18/2025 10:52 PM EDT [facility] pO2, Arterial 136(H) 80 - 100 mm Hg 04/18/2025 10:52 PM EDT [facility] HCO3, Arterial 23 22 - 26 mmol/L 04/18/2025 10:52 PM EDT [facility] CO2 Content,Arteri al 24 23 - 27 mmol/L 04/18/2025 10:52 PM EDT [facility] Base Excess, Arterial -2.3(L) -2.0 - 3.0 mmol/L 04/18/2025 10:52 PM EDT [facility] %HBO2, Arterial 96.6 95.0 - 98.0 % 04/18/2025 10:52 PM EDT [facility] Carboxyhemoglo bin, Arterial 1.7 % 04/18/2025 10:52 PM EDT [facility] Comment: CARBOXYHEMOGLOBIN (CO) REFERENCE RANGES: Non-Smokers: <2 % Smokers: <8 % TOXIC: >20 % Methemoglobin, Arterial 1.2 0.0 - 1.5 % 04/18/2025 10:52 PM EDT [facility] Reduced hemoglobin, Arterial 0.5 0.0 - 5.0 % 04/18/2025 10:52 PM EDT [facility] Blood, Arterial 04/18/2025 1 0:46 PM EDT 04/18/2025 10:49 PM EDT us Ludin Jose MD LAB BLOOD ORDERABLES Final Resul t Performing Organization Address City/[facility]/ZIP Co de Phone Number [facility] [address] [facility]. [address] * Magnesium, STAT (04/18/2025 10:12 PM EDT) Magnesium 2.2 1.5 - 2.5 mg/dL 04/18/2025 10:51 PM EDT [facility] Plasma 04/18/2025 10:1 2 PM EDT 04/18/2025 10:16 PM EDT us Judith Murcia MD LAB BLOOD ORDERABLES Final Res ult [facility] [address] * (ABNORMAL) Renal Function Panel w/EGFR, STAT (04/18/2025 10:12 PM EDT) Sodium 139 133 - 146 mmol/L 04/18/2025 10:51 PM EDT [facility] Potassium 3.6 3.5 - 5.3 mmol/L 04/18/2025 10:51 PM EDT [facility] Chloride 110 98 - 110 mmol/L 04/18/2025 10:51 PM EDT [facility] CO2 22 21 - 33 mmol/L 04/18/2025 10:51 PM EDT [facility] Comment:High lactate dehydro genase concentrations in patient samples may cause falsely increased bicarbonate results. If markedly elevated LDH is observed or suspected, please assess results in conjunction with patient`s clinical presentation. In cases of discrepant results, consider evaluating CO2 in with a blood gas order. Anion Gap 7 3 - 16 mmol/L 04/18/2025 10:51 PM EDT [facility] BUN 14 7 - 25 mg/dL 04/18/2025 10:51 PM EDT [facility] Creatinine 0.65 0.60 - 1.30 mg/dL 04/18/2025 10:51 PM EDT [facility] Glucose 152(H) 70 - 100 mg/dL 04/18/2025 10:51 PM EDT [facility] Calcium 7.8(L) 8.6 - 10.3 mg/dL 04/18/2025 10:51 PM EDT [facility] Phosphorus 3.5 2.1 - 4.7 mg/dL 04/18/2025 10:51 PM EDT [facility] Albumin 2.8(L) 3.5 - 5.7 g/dL 04/18/2025 10:51 PM EDT [facility] Osmolality, Calculated 291 278 - 305 mOsm/kg 04/18/2025 10:51 PM EDT [facility] EGFR >90 04/18/2025 10:51 PM EDT [facility] Comment: As of 2021, the [...] MD LAB BLOOD ORDERABLES Final Res ult [facility] [address] [facility]. [address] * (ABNORMAL) POC Glucose Monitoring Device (04/18/2025 10:09 PM EDT) [facility] Signature POC Glucose Monitoring Device 145(H) 70 - 100 mg/dL 04/18/2025 10:20 PM EDT [facility] Blood 04/18/2025 10:0 9 PM EDT 04/18/2025 10:20 PM EDT us Ludin Jose MD POINT OF CARE TEST ORDERABLES Fi nal Result Performing Organization Address [facility] Co de Phone Number [facility] [address] [facility]. [address] * XR Portable Feeding Tube Check [...] EDT Mohan Khan MD [facility] Final Result * (ABNORMAL) Lactic Acid (04/18/2025 9:28 PM EDT) Pathologist [facility] Lactate 2.3(H) 0.5 - 2.2 mmol/L 04/18/2025 9:53 PM EDT [facility] Plasma 04/18/2025 9:28 PM EDT 04/18/2025 9:34 PM EDT Jostin Hess MD LAB BLOOD ORDERABLES Final Result [facility] [address] [address] * (ABNORMAL) POC Glucose Monitoring Device (04/18/2025 9:11 PM EDT) Pathologist [facility] POC Glucose Monitoring Device 141(H) 70 - 100 mg/dL 04/18/2025 9:18 PM EDT [facility] Blood 04/18/2025 9:11 PM EDT 04/18/2025 9:17 PM EDT us Ludin Jose MD POINT OF CARE TEST ORDERABLES Fi nal Result [facility] [address] [place] [address], [facility] * X-ray Portable Chest (04/18/2025 8:26 PM [...] EDT us Jostin Hess MD IMG DIAGNOSTIC IMAGIN G ORDERABLES Final Result * (ABNORMAL) POC Glucose Monitoring Device (04/18/2025 8:05 PM EDT) POC Glucose Monitoring Device 153(H) 70 - 100 mg/dL 04/18/2025 8:07 PM EDT [facility] Blood 04/18/2025 8:05 PM EDT 04/18/2025 8:07 PM EDT us Ludin Jose MD POINT OF CARE TEST ORDERABLES Fi nal Result [facility] [address] * Prepare Fresh Frozen Plasma, 5 Units (04/18/2025 7:53 PM EDT) Product Code W6756W70 [facility] Unit Number [id number] [facility] Dispense Status Released from [employer]match[employer] [facility]LL Blood Expiration Date HCLL Coding System [id number] HCLL Product Code K6284O76 [facility]LL Unit Number [id number] HCLL Dispense Status Released from [employer] [facility] Blood Expiration Date HCLL Coding System FTTL471 HCLL Product Code B2054C06 HCLL Unit Number [id number] HCLL Dispense Status Released from [employer] [facility] Blood Expiration Date HCLL Coding System GGQV887 HCLL Product Code K8113K32 [facility]LL Unit Number [id number] HCLL Dispense Status Released from [employer] [facility]LL Blood Expiration Date HCLL Coding System PHMT647 HCLL Product Code L4704P93 HC[facility] Unit Number [id number] HCLL Dispense Status Released from [employer] [facility] Blood Expiration Date [id number] HCLL Coding System UINT355 [facility] Blood Bank Product Ludin Jose MD BLOOD BANK PRODUCT ORDERABLES Fi nal Result Performing Organization Address [facility] Co de Phone Number HCLL * Prepare RBC, leukoreduced, 5 Units (04/18/2025 7:53 PM EDT) Product Code E9358L56 [facility] Unit Number [id number] Dispense Status Released from [employer] [facility]LL Blood Expiration Date HCLL Coding System SURN021 HCLL Product Code S9612O68 HCLL Unit Number [id number] HCLL Dispense Status Released from [employer] [facility] Blood Expiration Date HCLL Coding System FOKX550 HCLL Product Code U7644D43 HCLL Unit Number [id number] HCLL Dispense Status Released from [employer] [facility] Blood Expiration Date HCLL Coding System [id number] HCLL Product Code W1791B83 HCLL Unit Number [id number] HCLL Dispense Status Released from [employer] [facility] Blood Expiration Date HCLL Coding System BTSE942 HCLL Product Code A6849O07 HCLL Unit Number [id number] HCLL Dispense Status Released from [employer] [facility] Blood Expiration Date HCLL Coding System SIFH240 HCLL Blood Bank Product Ludin Jose MD BLOOD BANK PRODUCT ORDERABLES Fi nal Result Performing Organization Address City/[facility]/ZIP Co de Phone Number HCLL * ECG 12 lead (MUSE) (04/18/2025 7:13 PM EDT) 04/18/2025 7:13 PM EDT Narrative MUSE - 04/19/2025 11:23 AM EDT Ventricular Rate: 90 BPM Atrial Rate: 90 BPM P-R Interval: 96 ms QRS Duration: 78 ms QT: 470 ms QTc: 574 ms P [place]: 53 degrees R [place]: 23 degrees T [place]: 49 degrees Diagnosis Line: Critical Test Result: Long QTc ^ SINUS RHYTHM WITH SHORT AL ^ PROLONGED QT ^ ABNORMAL ECG ^ ^ Confirmed by Anthony RAMOS MD ([id number]) on 04/19/2025 11:23:16 AM Judith Murcia MD ECG ORDERABLES Final Result Performing Organization Address City/[facility]/ZIP Co de Phone Number MUSE * (ABNORMAL) POC Glucose Monitoring Device (04/18/2025 6:59 PM EDT) POC Glucose Monitoring Device 155(H) 70 - 100 mg/dL 04/18/2025 7:05 PM EDT [facility] Blood 04/18/2025 6:59 PM EDT 04/18/2025 7:05 PM EDT Ludin Jose MD POINT OF CARE TEST ORDERABLES Fi nal Result Performing Organization Address [facility] Co de Phone Number [facility] [address] * Calcium Free, Serum (04/18/2025 6:59 PM EDT) Free Calcium, Ser 4.77 4.40 - 5.40 mg/dL 04/18/2025 7:12 PM EDT [facility] Comment:Free calcium levels vary inversely with pH by approximately 5% for each 0.1 unit of pH change. Assay results have been normalized to pH = 7.40. Serum 04/18/2025 6:59 PM EDT 04/18/2025 7:03 PM EDT Narrative [facility] - 04/18/2025 7:12 PM EDT This test has been developed and its performance characteristics determined by [facility] which is certified under the [...] Khan MD LAB BLOOD ORDERABLES Final Result [facility] [address] [place] [address], [facility] * (ABNORMAL) TEG-Standard Global Hemostasis (Rapid TEG with Heparin Effect, Contains a Baseline TEG) (04/18/2025 6:59 PM EDT) [facility] Citrated Kaolin Reaction Time (TEGHEPARINASE) 5.0 4.6 - 9.1 minutes 04/18/2025 8:06 PM EDT [facility] Citrated Rapid Teg Maximum Amplitude (TEGHEPARINASE) 52.6 52.0 - 70.0 mm 04/18/2025 8:06 PM EDT [facility] Citrated Functional Fibrinogen Maximum Amplitude (TEGHEPARINASE) 15.3 15.0 - 32.0 mm 04/18/2025 8:06 PM EDT [facility] Citrated Kaolin W/Heparinase Reaction Time (TEGHEPARINASE) 5.1 4.3 - 8.3 minutes 04/18/2025 8:06 PM EDT [facility] Citrated Kaolin K-Time (TEGHEPARINASE) 1.7(A) 0.8 - 2.1 minutes 04/18/2025 8:06 PM EDT [facility] Citrated Kaolin Angle (TEGHEPARINASE) 71.3(A) 63.0 - 78.0 degrees 04/18/2025 8:06 PM EDT [facility] Citrated Kaolin Maximum Amplitude (TEGHEPARINASE) 54.5 52.0 - 69.0 mm 04/18/2025 8:06 PM EDT [facility] Citrated Functional Fibrinogen- Fibrinogen Level (TEGHEPARINASE) 279.2 278.0 - 581.0 mg/dL 04/18/2025 8:06 PM EDT [facility] Whole Blood (Citrate) 04/18/2025 6:59 PM EDT 04/18/2025 7:03 PM EDT Jostin Hess MD LAB BLOOD ORDERABLES Final Result [facility] [address] [facility]. [address] * (ABNORMAL) Lactic Acid (04/18/2025 6:59 PM EDT) Lactate 3.8(H) 0.5 - 2.2 mmol/L 04/18/2025 10:10 PM EDT [facility] Plasma 04/18/2025 6:59 PM EDT 04/18/2025 7:03 PM EDT us Jostin Hess MD LAB BLOOD ORDERABLES Final Result [facility] [address] [place] [facility]. [address] * Fibrinogen (04/18/2025 6:59 PM EDT) Fibrinogen 249 218 - 406 mg/dL 04/18/2025 7:14 PM EDT [facility] Plasma 04/18/2025 6:59 PM EDT 04/18/2025 7:03 PM EDT us Jostin Hess MD LAB BLOOD ORDERABLES Final Result Performing Organization Address City/[facility]/ZIP Co de Phone Number [facility] [address] [facility]. [address] * (ABNORMAL) Protime-INR (04/18/2025 6:59 PM EDT) Protime 21.5(H) 12.1 - 15.1 seconds 04/18/2025 7:44 PM EDT [facility] INR 1.8(H) 0.9 - 1.1 04/18/2025 7:44 PM EDT [facility] Comment: RECOMMENDED THERAPEUTIC RANGES USING INR : Stable oral anticoagulant therapy: 2.0 - 3.0 Mechanical prosthetic heart valve: 2.5 - 3.5 Recurrent acute myocardial infarction: 2.5 - 3.5 Plasma 04/18/2025 6:59 PM EDT 04/18/2025 7:03 PM EDT Jostin Hess MD LAB BLOOD ORDERABLES Final Result [facility] [address] [address], [facility] * (ABNORMAL) Blood gas, arterial (04/18/2025 6:59 PM EDT) O2 Sat, Arterial 100 04/18/2025 7:06 PM EDT [facility] FIO2 50 04/18/2025 7:06 PM EDT [facility] pH, Arterial 7.40 7.35 - 7.45 04/18/2025 7:06 PM EDT [facility] pCO2, Arterial 33(L) 35 - 45 mm Hg 04/18/2025 7:06 PM EDT [facility] pO2, Arterial 158(H) 80 - 100 mm Hg 04/18/2025 7:06 PM EDT [facility] HCO3, Arterial 22 22 - 26 mmol/L 04/18/2025 7:06 PM EDT [facility] CO2 Content,Arteri al 21(L) 23 - 27 mmol/L 04/18/2025 7:06 PM EDT [facility] Base Excess, Arterial -3.6(L) -2.0 - 3.0 mmol/L 04/18/2025 7:06 PM EDT [facility] %HBO2, Arterial 95.1 95.0 - 98.0 % 04/18/2025 7:06 PM EDT [facility] Carboxyhemoglo bin, Arterial 2.3 % 04/18/2025 7:06 PM EDT [facility] Comment: CARBOXYHEMOGLOBIN (CO) REFERENCE RANGES: Non-Smokers: <2 % Smokers: <8 % TOXIC: >20 % Methemoglobin, Arterial 2.4(H) 0.0 - 1.5 % 04/18/2025 7:06 PM EDT [facility] Reduced hemoglobin, Arterial 0.2 0.0 - 5.0 % 04/18/2025 7:06 PM EDT [facility] Blood, Arterial 04/18/2025 6 :59 PM EDT 04/18/2025 7:03 PM EDT Jostin Hess MD LAB BLOOD ORDERABLES Final Result Performing Organization Address City/[facility]/ZIP Co de Phone Number [facility] [address] * Magnesium (04/18/2025 6:59 PM EDT) Magnesium 2.2 1.5 - 2.5 mg/dL 04/18/2025 10:28 PM EDT [facility] Plasma 04/18/2025 6:59 PM EDT 04/18/2025 7:03 PM EDT Jostin Hess MD LAB BLOOD ORDERABLES Final Result Performing Organization Address [facility] Co de Phone Number [facility] [address] * (ABNORMAL) Hepatic Function Panel (04/18/2025 6:59 PM EDT) Total Bilirubin 5.1(H) 0.0 - 1.5 mg/dL 04/18/2025 10:28 PM EDT [facility] Bilirubin, Direct 2.86(H) 0.00 - 0.40 mg/dL 04/18/2025 8:44 PM EDT [facility] AST 195(H) 13 - 39 U/L 04/18/2025 8:44 PM EDT [facility] ALT 127(H) 7 - 52 U/L 04/18/2025 10:28 PM EDT [facility] Alkaline Phosphatase 53 36 - 125 U/L 04/18/2025 10:28 PM EDT [facility] Total Protein 4.0(L) 6.4 - 8.9 g/dL 04/18/2025 8:44 PM EDT [facility] Albumin 2.7(L) 3.5 - 5.7 g/dL 04/18/2025 8:44 PM EDT [facility] Bilirubin, Indirect 2.24(H) 0.00 - 1.10 mg/dL 04/18/2025 10:28 PM EDT [facility] Plasma 04/18/2025 6:59 PM EDT 04/18/2025 7:03 PM EDT Jostin Hess MD LAB BLOOD ORDERABLES Final Result [facility] [address] [place] [address], [facility] * (ABNORMAL) Renal Function Panel w/EGFR (04/18/2025 6:59 PM EDT) Sodium 139 133 - 146 mmol/L 04/18/2025 8:44 PM EDT [facility] Potassium 3.6 3.5 - 5.3 mmol/L 04/18/2025 8:44 PM EDT [facility] Chloride 108 98 - 110 mmol/L 04/18/2025 8:44 PM EDT [facility] CO2 20(L) 21 - 33 mmol/L 04/18/2025 10:28 PM EDT [facility] Comment:High lactate dehydro genase concentrations in patient samples may cause falsely increased bicarbonate results. If markedly elevated LDH is observed or suspected, please assess results in conjunction with patient`s clinical presentation. In cases of discrepant results, consider evaluating CO2 in with a blood gas order. Anion Gap 11 3 - 16 mmol/L 04/18/2025 10:28 PM EDT [facility] BUN 11 7 - 25 mg/dL 04/18/2025 8:44 PM EDT [facility] Creatinine 0.66 0.60 - 1.30 mg/dL 04/18/2025 10:28 PM EDT [facility] Glucose 163(H) 70 - 100 mg/dL 04/18/2025 8:44 PM EDT [facility] Calcium 8.1(L) 8.6 - 10.3 mg/dL 04/18/2025 10:28 PM EDT [facility] Phosphorus 3.7 2.1 - 4.7 mg/dL 04/18/2025 10:28 PM EDT [facility] Albumin 2.7(L) 3.5 - 5.7 g/dL 04/18/2025 8:44 PM EDT [facility] Osmolality, Calculated 291 278 - 305 mOsm/kg 04/18/2025 8:44 PM EDT [facility] EGFR >90 04/18/2025 10:28 PM EDT [facility] Comment: As of 2021, the [...] Hess MD LAB BLOOD ORDERABLES Final Result [facility] [address] * (ABNORMAL) CBC (04/18/2025 6:59 PM EDT) WBC 8.7 3.8 - 10.8 10E3/uL 04/18/2025 7:16 PM EDT [facility] RBC 3.99 3.80 - 5.10 10E6/uL 04/18/2025 7:16 PM EDT [facility] Hemoglobin 12.3 11.7 - 15.5 g/dL 04/18/2025 7:16 PM EDT [facility] Hematocrit 35.8 35.0 - 45.0 % 04/18/2025 7:16 PM EDT [facility] MCV 89.7 80.0 - 100.0 fL 04/18/2025 7:16 PM EDT [facility] MCH 30.7 27.0 - 33.0 pg 04/18/2025 7:16 PM EDT [facility] MCHC 34.2 32.0 - 36.0 g/dL 04/18/2025 7:16 PM EDT [facility] RDW 16.4(H) 11.0 - 15.0 % 04/18/2025 7:16 PM EDT [facility] Platelets 84(L) 140 - 400 10E3/uL 04/18/2025 7:16 PM EDT [facility] MPV 8.2 7.5 - 11.5 fL 04/18/2025 7:16 PM EDT [facility] Whole Blood 04/18/2025 6:59 PM EDT 04/18/2025 7:03 PM EDT us Jostin Hess MD LAB BLOOD ORDERABLES Final Result [facility] [address] * POC Sample Type (04/18/2025 5:00 PM EDT) Pathologist [facility] POC Sample Type Arterial 04/18/2025 5:34 PM EDT [facility] Blood, Arterial 04/18/2025 5 :00 PM EDT 04/18/2025 5:34 PM EDT us Ludin Jose MD POINT OF CARE TEST ORDERABLES Fi nal Result Performing Organization Address [facility]/ZIP Co de Phone Number [facility] [address] * POC Anion Gap (04/18/2025 5:00 PM EDT) POC Anion Gap, Arterial 9 3 - 16 mmol/L 04/18/2025 5:34 PM EDT [facility] Blood, Arterial 04/18/2025 5 :00 PM EDT 04/18/2025 5:34 PM EDT us Ludin Jose MD POINT OF CARE TEST ORDERABLES Fi nal Result [facility] [address] [facility]. [address] * POC Chloride (04/18/2025 5:00 PM EDT) POC Chloride 109 98 - 110 mmol/L 04/18/2025 5:34 PM EDT [facility] Blood, Arterial 04/18/2025 5 :00 PM EDT 04/18/2025 5:34 PM EDT Ludin Jose MD POINT OF CARE TEST ORDERABLES Fi nal Result Performing Organization Address City/[facility] Co de Phone Number [facility] [address] [facility]. [address] * (ABNORMAL) POC Hemoglobin (04/18/2025 5:00 PM EDT) Pathologist [facility] POC Hemoglobin 9.6(L) 12.0 - 16.0 g/dL 04/18/2025 5:34 PM EDT [facility] Blood, Arterial 04/18/2025 5 :00 PM EDT 04/18/2025 5:34 PM EDT us Ludin Jose MD POINT OF CARE TEST ORDERABLES Fi nal Result [facility] [address] [facility]. [address] * (ABNORMAL) POC hematocrit (04/18/2025 5:00 PM EDT) Pathologist [facility] POC Hematocrit 28.0(L) 35 - 45 % 04/18/2025 5:34 PM EDT [facility] Blood, Arterial 04/18/2025 5 :00 PM EDT 04/18/2025 5:34 PM EDT us Ludin Jose MD POINT OF CARE TEST ORDERABLES Fi nal Result Performing Organization Address [facility] Co de Phone Number [facility] [address] [facility]. [address] * (ABNORMAL) POC Lactate (04/18/2025 5:00 PM EDT) POC Lactate 3.63(H) 0.50 - 2.20 mmol/L 04/18/2025 5:34 PM EDT [facility] Blood, Arterial 04/18/2025 5 :00 PM EDT 04/18/2025 5:34 PM EDT us Ludin Jose MD POINT OF CARE TEST ORDERABLES Fi nal Result Performing Organization Address [facility] Co de Phone Number [facility] [address] [facility]. [address] * (ABNORMAL) POC Glucose (04/18/2025 5:00 PM EDT) Pathologist [facility] POC Glucose, Arterial 136(H) 70 - 100 mg/dL 04/18/2025 5:34 PM EDT [facility] Blood, Arterial 04/18/2025 5 :00 PM EDT 04/18/2025 5:34 PM EDT us Ludin Jose MD POINT OF CARE TEST ORDERABLES Fi nal Result Performing Organization Address City/[facility] Co de Phone Number [facility] [address] [facility]. [address] * POC Ionized Calcium (04/18/2025 5:00 PM EDT) Pathologist [facility] POC Ionized Calcium 5.00 4.50 - 5.30 mg/dL 04/18/2025 5:34 PM EDT [facility] Blood, Arterial 04/18/2025 5 :00 PM EDT 04/18/2025 5:34 PM EDT us Ludin Jose MD POINT OF CARE TEST ORDERABLES Fi nal Result Performing Organization Address [facility] Co de Phone Number [facility] [address] [place] [address]. [address] * POC Potassium (04/18/2025 5:00 PM EDT) POC Potassium 3.5 3.5 - 5.3 mmol/L 04/18/2025 5:34 PM EDT [facility] Blood, Arterial 04/18/2025 5 :00 PM EDT 04/18/2025 5:34 PM EDT us Ludin Jose MD POINT OF CARE TEST ORDERABLES Fi nal Result Performing Organization Address [facility] de Phone Number [address] * POC Sodium (04/18/2025 5:00 PM EDT) POC Sodium 140 136 - 146 mmol/L 04/18/2025 5:34 PM EDT [facility] Blood, Arterial 04/18/2025 5 :00 PM EDT 04/18/2025 5:34 PM EDT us Ludin Jose MD POINT OF CARE TEST ORDERABLES Fi nal Result Performing Organization Address [facility] Co de Phone Number [address] * POC TCO2 (04/18/2025 5:00 PM EDT) POC TCO2, Arterial 24 23 - 27 mmol/L 04/18/2025 5:34 PM EDT [facility] Blood, Arterial 04/18/2025 5 :00 PM EDT 04/18/2025 5:34 PM EDT us Ludin Jose MD POINT OF CARE TEST ORDERABLES Fi nal Result Performing Organization Address [facility]/ZIP Co de Phone Number [facility] [address] * (ABNORMAL) POC O2 SAT (04/18/2025 5:00 PM EDT) POC O2 Saturation, Arterial 100(H) 95 - 98 % 04/18/2025 5:34 PM EDT [facility] Blood, Arterial 04/18/2025 5 :00 PM EDT 04/18/2025 5:34 PM EDT Ludin Jose MD POINT OF CARE TEST ORDERABLES Fi nal Result Performing Organization Address [facility] Co de Phone Number [facility] [address] * (ABNORMAL) POC Base Excess (04/18/2025 5:00 PM EDT) POC Base Excess, Arterial -3(L) -2 - 3 mmol/L 04/18/2025 5:34 PM EDT [facility] Blood, Arterial 04/18/2025 5 :00 PM EDT 04/18/2025 5:34 PM EDT us Ludin Jose MD POINT OF CARE TEST ORDERABLES Fi nal Result Performing Organization Address [facility] Co de Phone Number [facility] [address] [facility]. [address] * POC HCO3 (04/18/2025 5:00 PM EDT) POC HCO3, Arterial 22 22 - 26 mmol/L 04/18/2025 5:34 PM EDT [facility] Blood, Arterial 04/18/2025 5 :00 PM EDT 04/18/2025 5:34 PM EDT us Ludin Jose MD POINT OF CARE TEST ORDERABLES Fi nal Result Performing Organization Address City/[facility] Co de Phone Number [facility] [address] * (ABNORMAL) POC PO2 (04/18/2025 5:00 PM EDT) POC pO2, Arterial 178(H) 80 - 100 mm Hg 04/18/2025 5:34 PM EDT [facility] Blood, Arterial 04/18/2025 5 :00 PM EDT 04/18/2025 5:34 PM EDT Ludin Jose MD POINT OF CARE TEST ORDERABLES Fi nal Result [facility] [address] [facility]. [address] * POC PCO2 (04/18/2025 5:00 PM EDT) Pathologist [facility] POC pCO2, Arterial 38 35 - 45 mm Hg 04/18/2025 5:34 PM EDT [facility] Blood, Arterial 04/18/2025 5 :00 PM EDT 04/18/2025 5:34 PM EDT Ludin Jose MD POINT OF CARE TEST ORDERABLES Fi nal Result Performing Organization Address City/[facility] Co de Phone Number [facility] [address] [facility]. [address] * POC pH (04/18/2025 5:00 PM EDT) Pathologist [facility] POC pH, Arterial 7.38 7.35 - 7.45 04/18/2025 5:34 PM EDT [facility] Blood, Arterial 04/18/2025 5 :00 PM EDT 04/18/2025 5:34 PM EDT us Ludin Jose MD POINT OF CARE TEST ORDERABLES Fi nal Result [facility] [address] [facility]. [address] * (ABNORMAL) POC INR (04/18/2025 4:54 PM EDT) Prothrombin Time INR, POC 1.6(H) 0.8 - 1.4 04/19/2025 6:33 AM EDT [facility] Comment: Test results may vary using different testing platforms. Serial result monitoring should be performed using the same methodology. RECOMMENDED THERAPEUTIC RANGES USING INR : Stable oral anticoagulant therapy: 2.0 - 3.0 Mechanical prosthetic heart valve: 2.5 - 3.5 Recurrent acute myocardial infarction: 2.5 - 3.5 Blood 04/18/2025 4:54 PM EDT 04/19/2025 6:32 AM EDT us Ludin Jose MD POINT OF CARE TEST ORDERABLES Fi nal Result Performing Organization Address [facility] Co de Phone Number [facility] [address] [place] [address] * Transfuse Cryoprecipitate (04/18/2025 4:07 PM EDT) us Mario Chan MD NURSING TREATMENT ORDERABL ES - BLOOD ADMIN Final Result * Transfuse Cryoprecipitate (04/18/2025 4:02 PM EDT) us Mario Chan MD NURSING TREATMENT ORDERABL ES - BLOOD ADMIN Final Result * POC Sample Type (04/18/2025 4:00 PM EDT) [facility] POC Sample Type Arterial 04/18/2025 4:58 PM EDT [facility] Blood, Arterial 04/18/2025 4 :00 PM EDT 04/18/2025 4:58 PM EDT us Ludin Jose MD POINT OF CARE TEST ORDERABLES Fi nal Result Performing Organization Address City/[facility]/ZIP Co de Phone Number [facility] [address] * POC Anion Gap (04/18/2025 4:00 PM EDT) [facility] POC Anion Gap, Arterial 10 3 - 16 mmol/L 04/18/2025 4:58 PM EDT [facility] Blood, Arterial 04/18/2025 4 :00 PM EDT 04/18/2025 4:58 PM EDT us Ludin Jose MD POINT OF CARE TEST ORDERABLES Fi nal Result [facility] [address] [facility]. [address] * POC Chloride (04/18/2025 4:00 PM EDT) POC Chloride 108 98 - 110 mmol/L 04/18/2025 4:58 PM EDT [facility] Blood, Arterial 04/18/2025 4 :00 PM EDT 04/18/2025 4:58 PM EDT us Ludin Jose MD POINT OF CARE TEST ORDERABLES Fi nal Result Performing Organization Address [facility] Co de Phone Number [facility] [address] [facility]. [address] * (ABNORMAL) POC Hemoglobin (04/18/2025 4:00 PM EDT) POC Hemoglobin 9.6(L) 12.0 - 16.0 g/dL 04/18/2025 4:58 PM EDT [facility] Blood, Arterial 04/18/2025 4 :00 PM EDT 04/18/2025 4:58 PM EDT us Ludin Jose MD POINT OF CARE TEST ORDERABLES Fi nal Result Performing Organization Address City/[facility]/ZIP Co de Phone Number [facility] [address] [facility]. [address] * (ABNORMAL) POC hematocrit (04/18/2025 4:00 PM EDT) POC Hematocrit 28.0(L) 35 - 45 % 04/18/2025 4:58 PM EDT [facility] Blood, Arterial 04/18/2025 4 :00 PM EDT 04/18/2025 4:58 PM EDT us Ludin Jose MD POINT OF CARE TEST ORDERABLES Fi nal Result Performing Organization Address [facility] Co de Phone Number [facility] [address] [facility]. [address] * (ABNORMAL) POC Lactate (04/18/2025 4:00 PM EDT) POC Lactate 2.56(H) 0.50 - 2.20 mmol/L 04/18/2025 4:58 PM EDT [facility] Blood, Arterial 04/18/2025 4 :00 PM EDT 04/18/2025 4:58 PM EDT us Ludin Jose MD POINT OF CARE TEST ORDERABLES Fi nal Result Performing Organization Address [facility] de Phone Number [facility] [address] [facility]. [address] * (ABNORMAL) POC Glucose (04/18/2025 4:00 PM EDT) POC Glucose, Arterial 133(H) 70 - 100 mg/dL 04/18/2025 4:58 PM EDT [facility] Blood, Arterial 04/18/2025 4 :00 PM EDT 04/18/2025 4:58 PM EDT us Ludin Jose MD POINT OF CARE TEST ORDERABLES Fi nal Result Performing Organization Address [facility] Co de Phone Number [facility] [address] [facility]. [address] * POC Ionized Calcium (04/18/2025 4:00 PM EDT) POC Ionized Calcium 5.20 4.50 - 5.30 mg/dL 04/18/2025 4:58 PM EDT [facility] Blood, Arterial 04/18/2025 4 :00 PM EDT 04/18/2025 4:58 PM EDT us Ludin Jose MD POINT OF CARE TEST ORDERABLES Fi nal Result [facility] [address] * POC Potassium (04/18/2025 4:00 PM EDT) POC Potassium 3.8 3.5 - 5.3 mmol/L 04/18/2025 4:58 PM EDT [facility] Blood, Arterial 04/18/2025 4 :00 PM EDT 04/18/2025 4:58 PM EDT us Ludin Jose MD POINT OF CARE TEST ORDERABLES Fi nal Result Performing Organization Address [facility] Co de Phone Number [facility] [address] * POC Sodium (04/18/2025 4:00 PM EDT) POC Sodium 141 136 - 146 mmol/L 04/18/2025 4:58 PM EDT [facility] Blood, Arterial 04/18/2025 4 :00 PM EDT 04/18/2025 4:58 PM EDT us Ludin Jose MD POINT OF CARE TEST ORDERABLES Fi nal Result Performing Organization Address City/[facility]/ZIP Co de Phone Number [facility] [address] [facility]. [address] * POC TCO2 (04/18/2025 4:00 PM EDT) POC TCO2, Arterial 24 23 - 27 mmol/L 04/18/2025 4:58 PM EDT [facility] Blood, Arterial 04/18/2025 4 :00 PM EDT 04/18/2025 4:58 PM EDT us Ludin Jose MD POINT OF CARE TEST ORDERABLES Fi nal Result [facility] [address] * (ABNORMAL) POC O2 SAT (04/18/2025 4:00 PM EDT) POC O2 Saturation, Arterial 100(H) 95 - 98 % 04/18/2025 4:58 PM EDT [facility] Blood, Arterial 04/18/2025 4 :00 PM EDT 04/18/2025 4:58 PM EDT us Ludin Jose MD POINT OF CARE TEST ORDERABLES Fi nal Result Performing Organization Address City/[facility]/ZIP Co de Phone Number [facility] [address] * (ABNORMAL) POC Base Excess (04/18/2025 4:00 PM EDT) POC Base Excess, Arterial -3(L) -2 - 3 mmol/L 04/18/2025 4:58 PM EDT [facility] Blood, Arterial 04/18/2025 4 :00 PM EDT 04/18/2025 4:58 PM EDT us Ludin Jose MD POINT OF CARE TEST ORDERABLES Fi nal Result Performing Organization Address City/[facility]/ZIP Co de Phone Number [facility] [address] * POC HCO3 (04/18/2025 4:00 PM EDT) POC HCO3, Arterial 23 22 - 26 mmol/L 04/18/2025 4:58 PM EDT [facility] Blood, Arterial 04/18/2025 4 :00 PM EDT 04/18/2025 4:58 PM EDT us Ludin Jose MD POINT OF CARE TEST ORDERABLES Fi nal Result Performing Organization Address City/[facility]/ZIP Co de Phone Number [facility] [address] * (ABNORMAL) POC PO2 (04/18/2025 4:00 PM EDT) POC pO2, Arterial 290(H) 80 - 100 mm Hg 04/18/2025 4:58 PM EDT [facility] Blood, Arterial 04/18/2025 4 :00 PM EDT 04/18/2025 4:58 PM EDT Ludin Jose MD POINT OF CARE TEST ORDERABLES Fi nal Result [facility] [address] [place] [address]. [address] * POC PCO2 (04/18/2025 4:00 PM EDT) POC pCO2, Arterial 41 35 - 45 mm Hg 04/18/2025 4:58 PM EDT [facility] Blood, Arterial 04/18/2025 4 :00 PM EDT 04/18/2025 4:58 PM EDT us Ludin Jose MD POINT OF CARE TEST ORDERABLES Fi nal Result Performing Organization Address [facility] Co de Phone Number [facility] [address] [place] [address]. [address] * POC pH (04/18/2025 4:00 PM EDT) POC pH, Arterial 7.35 7.35 - 7.45 04/18/2025 4:58 PM EDT [facility] Blood, Arterial 04/18/2025 4 :00 PM EDT 04/18/2025 4:58 PM EDT us Ludin Jose MD POINT OF CARE TEST ORDERABLES Fi nal Result Performing Organization Address City/[facility] Co de Phone Number [facility] [address] [place] [address]. [address] * POC INR (04/18/2025 3:55 PM EDT) Prothrombin Time INR, POC 1.4 0.8 - 1.4 04/19/2025 6:33 AM EDT [facility] Comment: Test results may vary [...] ORDERABLES Fi nal Result Performing Organization Address City/[facility]/ZIP Co de Phone Number [facility] [address] [facility]. [address] * POC Sample Type (04/18/2025 3:06 PM EDT) POC Sample Type Arterial 04/18/2025 3:58 PM EDT [facility] Blood, Arterial 04/18/2025 3 :06 PM EDT 04/18/2025 3:58 PM EDT us Ludin Jose MD POINT OF CARE TEST ORDERABLES Fi nal Result Performing Organization Address [facility] Co de Phone Number [facility] [address] [place] [address]. [address] * POC Anion Gap (04/18/2025 3:06 PM EDT) Pathologist [facility] POC Anion Gap, Arterial 10 3 - 16 mmol/L 04/18/2025 3:58 PM EDT [facility] Blood, Arterial 04/18/2025 3 :06 PM EDT 04/18/2025 3:58 PM EDT us Ludin Jose MD POINT OF CARE TEST ORDERABLES Fi nal Result Performing Organization Address City/[facility] Co de Phone Number [facility] [address] [facility]. [address] * POC Chloride (04/18/2025 3:06 PM EDT) POC Chloride 107 98 - 110 mmol/L 04/18/2025 3:58 PM EDT [facility] Blood, Arterial 04/18/2025 3 :06 PM EDT 04/18/2025 3:58 PM EDT us Ludin Jose MD POINT OF CARE TEST ORDERABLES Fi nal Result Performing Organization Address City/[facility]/ZIP Co de Phone Number [facility] [address] [facility]. [address] * (ABNORMAL) POC Hemoglobin (04/18/2025 3:06 PM EDT) Pathologist [facility] POC Hemoglobin 9.2(L) 12.0 - 16.0 g/dL 04/18/2025 3:58 PM EDT [facility] Blood, Arterial 04/18/2025 3 :06 PM EDT 04/18/2025 3:58 PM EDT us Ludin Jose MD POINT OF CARE TEST ORDERABLES Fi nal Result Performing Organization Address [facility] Co de Phone Number [facility] [address] [facility]. [address] * (ABNORMAL) POC hematocrit (04/18/2025 3:06 PM EDT) Pathologist [facility] POC Hematocrit 27.0(L) 35 - 45 % 04/18/2025 3:58 PM EDT [facility] Blood, Arterial 04/18/2025 3 :06 PM EDT 04/18/2025 3:58 PM EDT us Ludin Jose MD POINT OF CARE TEST ORDERABLES Fi nal Result Performing Organization Address City/[facility] Co de Phone Number [facility] [address] [facility]. [address] * (ABNORMAL) POC Lactate (04/18/2025 3:06 PM EDT) Pathologist [facility] POC Lactate 3.12(H) 0.50 - 2.20 mmol/L 04/18/2025 3:58 PM EDT [facility] Blood, Arterial 04/18/2025 3 :06 PM EDT 04/18/2025 3:58 PM EDT us Ludin Jose MD POINT OF CARE TEST ORDERABLES Fi nal Result Performing Organization Address City/[facility] Co de Phone Number [facility] [address] [facility]. [address] * (ABNORMAL) POC Glucose (04/18/2025 3:06 PM EDT) POC Glucose, Arterial 144(H) 70 - 100 mg/dL 04/18/2025 3:58 PM EDT [facility] Blood, Arterial 04/18/2025 3 :06 PM EDT 04/18/2025 3:58 PM EDT us Ludin Jose MD POINT OF CARE TEST ORDERABLES Fi nal Result Performing Organization Address [facility] Co de Phone Number [facility] [address] [facility]. [address] * POC Ionized Calcium (04/18/2025 3:06 PM EDT) POC Ionized Calcium 4.90 4.50 - 5.30 mg/dL 04/18/2025 3:58 PM EDT [facility] Blood, Arterial 04/18/2025 3 :06 PM EDT 04/18/2025 3:58 PM EDT us Ludin Jose MD POINT OF CARE TEST ORDERABLES Fi nal Result Performing Organization Address City/[facility] Co de Phone Number [facility] [address] [facility]. [address] * POC Potassium (04/18/2025 3:06 PM EDT) POC Potassium 4.0 3.5 - 5.3 mmol/L 04/18/2025 3:58 PM EDT [facility] Blood, Arterial 04/18/2025 3 :06 PM EDT 04/18/2025 3:58 PM EDT us Ludin Jose MD POINT OF CARE TEST ORDERABLES Fi nal Result Performing Organization Address City/[facility] Co de Phone Number [facility] [address] [place] [address]. [address] * POC Sodium (04/18/2025 3:06 PM EDT) POC Sodium 139 136 - 146 mmol/L 04/18/2025 3:58 PM EDT [facility] Blood, Arterial 04/18/2025 3 :06 PM EDT 04/18/2025 3:58 PM EDT us Ludin Jose MD POINT OF CARE TEST ORDERABLES Fi nal Result Performing Organization Address [facility] de Phone Number [facility] [address] [place] [address]. [address] * POC TCO2 (04/18/2025 3:06 PM EDT) POC TCO2, Arterial 23 23 - 27 mmol/L 04/18/2025 3:58 PM EDT [facility] Blood, Arterial 04/18/2025 3 :06 PM EDT 04/18/2025 3:58 PM EDT us Ludin Jose MD POINT OF CARE TEST ORDERABLES Fi nal Result Performing Organization Address [facility] Co de Phone Number [facility] [address] [place] [address]. [address] * (ABNORMAL) POC O2 SAT (04/18/2025 3:06 PM EDT) POC O2 Saturation, Arterial 99(H) 95 - 98 % 04/18/2025 3:58 PM EDT [facility] Blood, Arterial 04/18/2025 3 :06 PM EDT 04/18/2025 3:58 PM EDT us Ludin Jose MD POINT OF CARE TEST ORDERABLES Fi nal Result Performing Organization Address City/[facility] Co de Phone Number [facility] [address] [facility]. [address] * (ABNORMAL) POC Base Excess (04/18/2025 3:06 PM EDT) POC Base Excess, Arterial -3(L) -2 - 3 mmol/L 04/18/2025 3:58 PM EDT [facility] Blood, Arterial 04/18/2025 3 :06 PM EDT 04/18/2025 3:58 PM EDT Ludin Jose MD POINT OF CARE TEST ORDERABLES Fi nal Result Performing Organization Address [facility] Co de Phone Number [facility] [address] * POC HCO3 (04/18/2025 3:06 PM EDT) POC HCO3, Arterial 22 22 - 26 mmol/L 04/18/2025 3:58 PM EDT [facility] Blood, Arterial 04/18/2025 3 :06 PM EDT 04/18/2025 3:58 PM EDT us Ludin Jose MD POINT OF CARE TEST ORDERABLES Fi nal Result Performing Organization Address [facility] Co de Phone Number [facility] [address] [facility]. [address] * (ABNORMAL) POC PO2 (04/18/2025 3:06 PM EDT) POC pO2, Arterial 152(H) 80 - 100 mm Hg 04/18/2025 3:58 PM EDT [facility] Blood, Arterial 04/18/2025 3 :06 PM EDT 04/18/2025 3:58 PM EDT us Ludin Jose MD POINT OF CARE TEST ORDERABLES Fi nal Result [facility] [address] * POC PCO2 (04/18/2025 3:06 PM EDT) POC pCO2, Arterial 36 35 - 45 mm Hg 04/18/2025 3:58 PM EDT [facility] Blood, Arterial 04/18/2025 3 :06 PM EDT 04/18/2025 3:58 PM EDT us Ludin Jose MD POINT OF CARE TEST ORDERABLES Fi nal Result Performing Organization Address City/[facility]/ZIP Co de Phone Number [facility] [address] * POC pH (04/18/2025 3:06 PM EDT) POC pH, Arterial 7.39 7.35 - 7.45 04/18/2025 3:58 PM EDT [facility] Blood, Arterial 04/18/2025 3 :06 PM EDT 04/18/2025 3:58 PM EDT us Ludin Jose MD POINT OF CARE TEST ORDERABLES Fi nal Result Performing Organization Address City/[facility] Co de Phone Number [facility] [address] * (ABNORMAL) POC INR (04/18/2025 3:01 PM EDT) Prothrombin Time INR, POC 1.5(H) 0.8 - 1.4 04/19/2025 6:33 AM EDT [facility] Comment: Test results may vary [...] TEST ORDERABLES Fi nal Result [facility] [address] [facility]. [address] * Transfuse Fresh Frozen Plasma Transfusion Rate: Per dept routine (04/18/2025 2:40 PM EDT) Ludin Jose MD NURSING TREATMENT ORDERABLES - B LOOD ADMIN Final Result * Transfuse Platelets (04/18/2025 2:37 PM EDT) Mario Chan MD NURSING TREATMENT ORDERABL ES - BLOOD ADMIN Final Result * POC Sample Type (04/18/2025 2:10 PM EDT) Pathologist [facility] POC Sample Type Arterial 04/18/2025 3:03 PM EDT [facility] Blood, Arterial 04/18/2025 2 :10 PM EDT 04/18/2025 3:03 PM EDT Ludin Jose MD POINT OF CARE TEST ORDERABLES Fi nal Result Performing Organization Address City/[facility]/ZIP Co de Phone Number [facility] [address] [facility]. [address] * POC Anion Gap (04/18/2025 2:10 PM EDT) Pathologist [facility] POC Anion Gap, Arterial 10 3 - 16 mmol/L 04/18/2025 3:03 PM EDT [facility] Blood, Arterial 04/18/2025 2 :10 PM EDT 04/18/2025 3:03 PM EDT Result [facility] Ludin Jose MD POINT OF CARE TEST ORDERABLES Fi nal Result Performing Organization Address City/[facility] Co de Phone Number [facility] [address] [facility]. [address] * POC Chloride (04/18/2025 2:10 PM EDT) POC Chloride 107 98 - 110 mmol/L 04/18/2025 3:03 PM EDT [facility] Blood, Arterial 04/18/2025 2 :10 PM EDT 04/18/2025 3:03 PM EDT us Ludin Jose MD POINT OF CARE TEST ORDERABLES Fi nal Result Performing Organization Address [facility] Co de Phone Number [facility] [address] [facility]. [address] * (ABNORMAL) POC Hemoglobin (04/18/2025 2:10 PM EDT) POC Hemoglobin 9.0(L) 12.0 - 16.0 g/dL 04/18/2025 3:03 PM EDT [facility] Blood, Arterial 04/18/2025 2 :10 PM EDT 04/18/2025 3:03 PM EDT us Ludin Jose MD POINT OF CARE TEST ORDERABLES Fi nal Result Performing Organization Address [facility] Co de Phone Number [facility] [address] [facility]. [address] * (ABNORMAL) POC hematocrit (04/18/2025 2:10 PM EDT) POC Hematocrit 26.0(L) 35 - 45 % 04/18/2025 3:03 PM EDT [facility] Blood, Arterial 04/18/2025 2 :10 PM EDT 04/18/2025 3:03 PM EDT us Ludin Jose MD POINT OF CARE TEST ORDERABLES Fi nal Result Performing Organization Address [facility] Co de Phone Number [facility] [address] [facility]. [address] * (ABNORMAL) POC Lactate (04/18/2025 2:10 PM EDT) POC Lactate 2.87(H) 0.50 - 2.20 mmol/L 04/18/2025 3:03 PM EDT [facility] Blood, Arterial 04/18/2025 2 :10 PM EDT 04/18/2025 3:03 PM EDT us Ludin Jose MD POINT OF CARE TEST ORDERABLES Fi nal Result Performing Organization Address [facility] Co de Phone Number [facility] [address] * (ABNORMAL) POC Glucose (04/18/2025 2:10 PM EDT) POC Glucose, Arterial 158(H) 70 - 100 mg/dL 04/18/2025 3:03 PM EDT [facility] Blood, Arterial 04/18/2025 2 :10 PM EDT 04/18/2025 3:03 PM EDT us Ludin Jose MD POINT OF CARE TEST ORDERABLES Fi nal Result Performing Organization Address [facility] Co de Phone Number [facility] [address] [facility]. [address] * (ABNORMAL) POC Ionized Calcium (04/18/2025 2:10 PM EDT) POC Ionized Calcium 5.40(H) 4.50 - 5.30 mg/dL 04/18/2025 3:03 PM EDT [facility] Blood, Arterial 04/18/2025 2 :10 PM EDT 04/18/2025 3:03 PM EDT us Ludin Jose MD POINT OF CARE TEST ORDERABLES Fi nal Result Performing Organization Address [facility] Co de Phone Number [facility] [address] [facility]. [address] * POC Potassium (04/18/2025 2:10 PM EDT) POC Potassium 4.2 3.5 - 5.3 mmol/L 04/18/2025 3:03 PM EDT [facility] Blood, Arterial 04/18/2025 2 :10 PM EDT 04/18/2025 3:03 PM EDT us Ludin Jose MD POINT OF CARE TEST ORDERABLES Fi nal Result Performing Organization Address [facility] Co de Phone Number [facility] [address] [facility]. [address] * POC Sodium (04/18/2025 2:10 PM EDT) POC Sodium 139 136 - 146 mmol/L 04/18/2025 3:03 PM EDT [facility] Blood, Arterial 04/18/2025 2 :10 PM EDT 04/18/2025 3:03 PM EDT us Ludin Jose MD POINT OF CARE TEST ORDERABLES Fi nal Result Performing Organization Address [facility] de Phone Number [facility] [address] [place] [address]. [address] * POC TCO2 (04/18/2025 2:10 PM EDT) POC TCO2, Arterial 23 23 - 27 mmol/L 04/18/2025 3:03 PM EDT [facility] Blood, Arterial 04/18/2025 2 :10 PM EDT 04/18/2025 3:03 PM EDT us Ludin Jose MD POINT OF CARE TEST ORDERABLES Fi nal Result Performing Organization Address [facility] de Phone Number [address] * (ABNORMAL) POC O2 SAT (04/18/2025 2:10 PM EDT) POC O2 Saturation, Arterial 100(H) 95 - 98 % 04/18/2025 3:03 PM EDT [facility] Blood, Arterial 04/18/2025 2 :10 PM EDT 04/18/2025 3:03 PM EDT us Ludin Jose MD POINT OF CARE TEST ORDERABLES Fi nal Result Performing Organization Address City/[facility] Co de Phone Number [facility] [address] * POC Base Excess (04/18/2025 2:10 PM EDT) POC Base Excess, Arterial -2 -2 - 3 mmol/L 04/18/2025 3:03 PM EDT [facility] Blood, Arterial 04/18/2025 2 :10 PM EDT 04/18/2025 3:03 PM EDT Ludin Jose MD POINT OF CARE TEST ORDERABLES Fi nal Result Performing Organization Address [facility]/ZIP Co de Phone Number [facility] [address] * POC HCO3 (04/18/2025 2:10 PM EDT) POC HCO3, Arterial 22 22 - 26 mmol/L 04/18/2025 3:03 PM EDT [facility] Blood, Arterial 04/18/2025 2 :10 PM EDT 04/18/2025 3:03 PM EDT us Ludin Jose MD POINT OF CARE TEST ORDERABLES Fi nal Result Performing Organization Address [facility]/ZIP Co de Phone Number [facility] [address] * (ABNORMAL) POC PO2 (04/18/2025 2:10 PM EDT) POC pO2, Arterial 175(H) 80 - 100 mm Hg 04/18/2025 3:03 PM EDT [facility] Blood, Arterial 04/18/2025 2 :10 PM EDT 04/18/2025 3:03 PM EDT us Ludin Jose MD POINT OF CARE TEST ORDERABLES Fi nal Result [facility] [address] * (ABNORMAL) POC PCO2 (04/18/2025 2:10 PM EDT) POC pCO2, Arterial 33(L) 35 - 45 mm Hg 04/18/2025 3:03 PM EDT [facility] Blood, Arterial 04/18/2025 2 :10 PM EDT 04/18/2025 3:03 PM EDT Ludin Jose MD POINT OF CARE TEST ORDERABLES Fi nal Result Performing Organization Address [facility] Co de Phone Number [facility] [address] [place] [address]. [address] * POC pH (04/18/2025 2:10 PM EDT) POC pH, Arterial 7.43 7.35 - 7.45 04/18/2025 3:03 PM EDT [facility] Blood, Arterial 04/18/2025 2 :10 PM EDT 04/18/2025 3:03 PM EDT us Ludin Jose MD POINT OF CARE TEST ORDERABLES Fi nal Result Performing Organization Address [facility] de Phone Number [facility] [address] [place] [address]. [address] * (ABNORMAL) POC INR (04/18/2025 2:05 PM EDT) Prothrombin Time INR, POC 2.2(H) 0.8 - 1.4 04/19/2025 6:33 AM EDT [facility] Comment: Test results may vary using different testing platforms. Serial result monitoring should be performed using the same methodology. RECOMMENDED THERAPEUTIC RANGES USING INR : Stable oral anticoagulant therapy: 2.0 - 3.0 Mechanical prosthetic heart valve: 2.5 - 3.5 Recurrent acute myocardial infarction: 2.5 - 3.5 Blood 04/18/2025 2:05 PM EDT 04/19/2025 6:32 AM EDT us Ludin Jose MD POINT OF CARE TEST ORDERABLES Fi nal Result Performing Organization Address [facility]/ZIP Co de Phone Number [facility] [address] [facility]. [address] * Transfuse Platelets (04/18/2025 2:00 PM EDT) Mario Chan MD NURSING TREATMENT ORDERABL ES - BLOOD ADMIN Final Result * (ABNORMAL) Fibrinogen (04/18/2025 1:52 PM EDT) Fibrinogen 130(L) 218 - 406 mg/dL 04/18/2025 2:30 PM EDT [facility] Plasma 04/18/2025 1:52 PM EDT 04/18/2025 2:03 PM EDT Mario Chan MD LAB BLOOD ORDERABLES Final Result Performing Organization Address [facility] Co de Phone Number [facility] [address] [facility]. [address] * (ABNORMAL) TEG-Bypass/ECMO/Liver HN (Factor function, Platelet/Fibrin Clot Strength w/Clot Breakdown, Heparinase In All Channels) (04/18/2025 1:52 PM EDT) Citrated Kaolin Reaction Time (TEGECMOLIVER) Unable to reach an endpoint / Test Timed Out 4.6 - 9.1 minutes 04/18/2025 3:30 PM EDT [facility] Citrated Kaolin W/Heparinase Reaction Time (TEGECMOLIVER) 7.3 4.3 - 8.3 minutes 04/18/2025 3:30 PM EDT [facility] Citrated Kaolin Maximum Amplitude (TEGECMOLIVER) Unable to reach an endpoint / Test Timed Out 52.0 - 69.0 mm 04/18/2025 3:30 PM EDT [facility] Citrated Functional Fibrinogen W/Heparinase Maximum Amplitude(TEGE CMOLIVER) 11.0(L) 15.0 - 34.0 mm 04/18/2025 3:30 PM EDT [facility] Citrated Rapid Teg W/Heparinase Maximum Amplitude (TEGECMOLIVER) 43.2(L) 53.0 - 69.0 mm 04/18/2025 3:30 PM EDT [facility] Citrated Kaolin w/Heparinase Percent Lysis (TEGECMOLIVER) 0.0 0.0 - 3.2 % 04/18/2025 3:30 PM EDT [facility] Whole Blood (Citrate) 04/18/2025 1:52 PM EDT 04/18/2025 2:03 PM EDT Mario Chan MD LAB BLOOD ORDERABLES Final Result [facility] [address] [place] [address], [facility] * (ABNORMAL) CBC, STAT (04/18/2025 1:52 PM EDT) WBC 7.2 3.8 - 10.8 10E3/uL 04/18/2025 2:33 PM EDT [facility] RBC 3.33(L) 3.80 - 5.10 10E6/uL 04/18/2025 2:33 PM EDT [facility] Hemoglobin 10.2(L) 11.7 - 15.5 g/dL 04/18/2025 2:33 PM EDT [facility] Hematocrit 29.6(L) 35.0 - 45.0 % 04/18/2025 2:33 PM EDT [facility] MCV 89.2 80.0 - 100.0 fL 04/18/2025 2:33 PM EDT [facility] MCH 30.6 27.0 - 33.0 pg 04/18/2025 2:33 PM EDT [facility] MCHC 34.3 32.0 - 36.0 g/dL 04/18/2025 2:33 PM EDT [facility] RDW 16.0(H) 11.0 - 15.0 % 04/18/2025 2:33 PM EDT [facility] Platelets 80(L) 140 - 400 10E3/uL 04/18/2025 2:33 PM EDT [facility] MPV 9.4 7.5 - 11.5 fL 04/18/2025 2:33 PM EDT [facility] Whole Blood 04/18/2025 1:52 PM EDT 04/18/2025 2:03 PM EDT Result [facility] Mario Chan MD LAB BLOOD ORDERABLES Final Result Performing Organization Address [facility] Co de Phone Number [facility] [address] * (ABNORMAL) Protime-INR, STAT (04/18/2025 1:52 PM EDT) [facility] Protime 23.1(H) 12.1 - 15.1 seconds 04/18/2025 2:25 PM EDT [facility] INR 1.9(H) 0.9 - 1.1 04/18/2025 2:25 PM EDT [facility] Comment: RECOMMENDED THERAPEUTIC RANGES USING INR : Stable oral anticoagulant therapy: 2.0 - 3.0 Mechanical prosthetic heart valve: 2.5 - 3.5 Recurrent acute myocardial infarction: 2.5 - 3.5 Plasma 04/18/2025 1:52 PM EDT 04/18/2025 2:03 PM EDT Result [facility] Mario Chan MD LAB BLOOD ORDERABLES Final Result Performing Organization Address [facility] de Phone Number [facility] [address] [place] [address]. [address] * POC Sample Type (04/18/2025 1:39 PM EDT) [facility] POC Sample Type Arterial 04/18/2025 2:07 PM EDT [facility] Blood, Arterial 04/18/2025 1 :39 PM EDT 04/18/2025 2:07 PM EDT Ludin Jose MD POINT OF CARE TEST ORDERABLES Fi nal Result Performing Organization Address [facility] Co de Phone Number [facility] [address] [place] [address]. [address] * POC Anion Gap (04/18/2025 1:39 PM EDT) POC Anion Gap, Arterial 14 3 - 16 mmol/L 04/18/2025 2:07 PM EDT [facility] Blood, Arterial 04/18/2025 1 :39 PM EDT 04/18/2025 2:07 PM EDT us Ludin Jose MD POINT OF CARE TEST ORDERABLES Fi nal Result [facility] [address] [facility]. [address] * POC Chloride (04/18/2025 1:39 PM EDT) Pathologist [facility] POC Chloride 106 98 - 110 mmol/L 04/18/2025 2:07 PM EDT [facility] Blood, Arterial 04/18/2025 1 :39 PM EDT 04/18/2025 2:07 PM EDT us Ludin Jose MD POINT OF CARE TEST ORDERABLES Fi nal Result Performing Organization Address [facility] Co de Phone Number [facility] [address] [facility]. [address] * (ABNORMAL) POC Hemoglobin (04/18/2025 1:39 PM EDT) Pathologist [facility] POC Hemoglobin 7.8(L) 12.0 - 16.0 g/dL 04/18/2025 2:07 PM EDT [facility] Blood, Arterial 04/18/2025 1 :39 PM EDT 04/18/2025 2:07 PM EDT us Ludin Jose MD POINT OF CARE TEST ORDERABLES Fi nal Result [facility] [address] [facility]. [address] * (ABNORMAL) POC hematocrit (04/18/2025 1:39 PM EDT) POC Hematocrit 23.0(L) 35 - 45 % 04/18/2025 2:07 PM EDT [facility] Blood, Arterial 04/18/2025 1 :39 PM EDT 04/18/2025 2:07 PM EDT us Ludin Jose MD POINT OF CARE TEST ORDERABLES Fi nal Result Performing Organization Address [facility] Co de Phone Number [facility] [address] [place] [address]. [address] * (ABNORMAL) POC Lactate (04/18/2025 1:39 PM EDT) Pathologist [facility] POC Lactate 2.42(H) 0.50 - 2.20 mmol/L 04/18/2025 2:07 PM EDT [facility] Blood, Arterial 04/18/2025 1 :39 PM EDT 04/18/2025 2:07 PM EDT us Ludin Jose MD POINT OF CARE TEST ORDERABLES Fi nal Result Performing Organization Address [facility] Co de Phone Number [facility] [address] [facility]. [address] * (ABNORMAL) POC Glucose (04/18/2025 1:39 PM EDT) Pathologist [facility] POC Glucose, Arterial 124(H) 70 - 100 mg/dL 04/18/2025 2:07 PM EDT [facility] Blood, Arterial 04/18/2025 1 :39 PM EDT 04/18/2025 2:07 PM EDT us Ludin Jose MD POINT OF CARE TEST ORDERABLES Fi nal Result Performing Organization Address City/[facility] Co de Phone Number [facility] [address] [place] [address]. [address] * (ABNORMAL) POC Ionized Calcium (04/18/2025 1:39 PM EDT) POC Ionized Calcium 4.10(L) 4.50 - 5.30 mg/dL 04/18/2025 2:07 PM EDT [facility] Blood, Arterial 04/18/2025 1 :39 PM EDT 04/18/2025 2:07 PM EDT us Ludin Jose MD POINT OF CARE TEST ORDERABLES Fi nal Result Performing Organization Address [facility] Co de Phone Number [facility] [address] [place] [address] * POC Potassium (04/18/2025 1:39 PM EDT) POC Potassium 4.4 3.5 - 5.3 mmol/L 04/18/2025 2:07 PM EDT [facility] Blood, Arterial 04/18/2025 1 :39 PM EDT 04/18/2025 2:07 PM EDT Ludin Jose MD POINT OF CARE TEST ORDERABLES Fi nal Result Performing Organization Address [facility] de Phone Number [facility] [address] [place] [address]. [address] * POC Sodium (04/18/2025 1:39 PM EDT) POC Sodium 141 136 - 146 mmol/L 04/18/2025 2:07 PM EDT [facility] Blood, Arterial 04/18/2025 1 :39 PM EDT 04/18/2025 2:07 PM EDT us Ludin Jose MD POINT OF CARE TEST ORDERABLES Fi nal Result Performing Organization Address [facility] Co de Phone Number [facility] [address] [place] [address]. [address] * (ABNORMAL) POC TCO2 (04/18/2025 1:39 PM EDT) POC TCO2, Arterial 22(L) 23 - 27 mmol/L 04/18/2025 2:07 PM EDT [facility] Blood, Arterial 04/18/2025 1 :39 PM EDT 04/18/2025 2:07 PM EDT us Ludin Jose MD POINT OF CARE TEST ORDERABLES Fi nal Result Performing Organization Address [facility] Co de Phone Number [facility] [address] * (ABNORMAL) POC O2 SAT (04/18/2025 1:39 PM EDT) POC O2 Saturation, Arterial 100(H) 95 - 98 % 04/18/2025 2:07 PM EDT [facility] Blood, Arterial 04/18/2025 1 :39 PM EDT 04/18/2025 2:07 PM EDT Ludin Jose MD POINT OF CARE TEST ORDERABLES Fi nal Result Performing Organization Address [facility] Co de Phone Number [facility] [address] [facility]. [address] * (ABNORMAL) POC Base Excess (04/18/2025 1:39 PM EDT) POC Base Excess, Arterial -3(L) -2 - 3 mmol/L 04/18/2025 2:07 PM EDT [facility] Blood, Arterial 04/18/2025 1 :39 PM EDT 04/18/2025 2:07 PM EDT Ludin Jose MD POINT OF CARE TEST ORDERABLES Fi nal Result Performing Organization Address [facility] Co de Phone Number [facility] [address] [facility]. [address] * (ABNORMAL) POC HCO3 (04/18/2025 1:39 PM EDT) POC HCO3, Arterial 21(L) 22 - 26 mmol/L 04/18/2025 2:07 PM EDT [facility] Blood, Arterial 04/18/2025 1 :39 PM EDT 04/18/2025 2:07 PM EDT Ludin Jose MD POINT OF CARE TEST ORDERABLES Fi nal Result Performing Organization Address City/[facility]/ZIP Co de Phone Number [facility] [address] * (ABNORMAL) POC PO2 (04/18/2025 1:39 PM EDT) POC pO2, Arterial 426(H) 80 - 100 mm Hg 04/18/2025 2:07 PM EDT [facility] Blood, Arterial 04/18/2025 1 :39 PM EDT 04/18/2025 2:07 PM EDT us Ludin Jose MD POINT OF CARE TEST ORDERABLES Fi nal Result Performing Organization Address [facility] Co de Phone Number [facility] [address] * (ABNORMAL) POC PCO2 (04/18/2025 1:39 PM EDT) POC pCO2, Arterial 34(L) 35 - 45 mm Hg 04/18/2025 2:07 PM EDT [facility] Blood, Arterial 04/18/2025 1 :39 PM EDT 04/18/2025 2:07 PM EDT us Ludin Jose MD POINT OF CARE TEST ORDERABLES Fi nal Result Performing Organization Address [facility] Co de Phone Number [facility] [address] [facility]. [address] * POC pH (04/18/2025 1:39 PM EDT) POC pH, Arterial 7.40 7.35 - 7.45 04/18/2025 2:07 PM EDT [facility] Blood, Arterial 04/18/2025 1 :39 PM EDT 04/18/2025 2:07 PM EDT us Ludin Jose MD POINT OF CARE TEST ORDERABLES Fi nal Result Performing Organization Address City/[facility] Co de Phone Number [facility] [address] * (ABNORMAL) POC INR (04/18/2025 1:33 [...] TEST ORDERABLES Fi nal Result [facility] [address] * Transfuse Fresh Frozen Plasma Transfusion [...] Sample Type Arterial 04/18/2025 1:37 PM EDT [facility] Blood, Arterial 04/18/2025 1 2:56 PM EDT 04/18/2025 1:37 PM EDT us Ludin Jose MD POINT OF CARE TEST ORDERABLES Fi nal Result Performing Organization Address City/[facility] Co de Phone Number [facility] [address] [place] [address]. [address] * POC Anion Gap (04/18/2025 12:56 PM EDT) POC Anion Gap, Arterial 9 3 - 16 mmol/L 04/18/2025 1:37 PM EDT [facility] Blood, Arterial 04/18/2025 1 2:56 PM EDT 04/18/2025 1:37 PM EDT us Ludin Jose MD POINT OF CARE TEST ORDERABLES Fi nal Result Performing Organization Address [facility] Co de Phone Number [facility] [address] [place] [address]. [address] * POC Chloride (04/18/2025 12:56 PM EDT) POC Chloride 110 98 - 110 mmol/L 04/18/2025 1:37 PM EDT [facility] Blood, Arterial 04/18/2025 1 2:56 PM EDT 04/18/2025 1:37 PM EDT us Ludin Jose MD POINT OF CARE TEST ORDERABLES Fi nal Result Performing Organization Address City/[facility] Co de Phone Number [facility] [address] [place] [address]. [address] * (ABNORMAL) POC Hemoglobin (04/18/2025 12:56 PM EDT) POC Hemoglobin 9.7(L) 12.0 - 16.0 g/dL 04/18/2025 1:37 PM EDT [facility] Blood, Arterial 04/18/2025 1 2:56 PM EDT 04/18/2025 1:37 PM EDT us uLdin Jose MD POINT OF CARE TEST ORDERABLES Fi nal Result Performing Organization Address City/[facility] Co de Phone Number [facility] [address] * (ABNORMAL) POC hematocrit (04/18/2025 12:56 PM EDT) POC Hematocrit 29.0(L) 35 - 45 % 04/18/2025 1:37 PM EDT [facility] Blood, Arterial 04/18/2025 1 2:56 PM EDT 04/18/2025 1:37 PM EDT Ludin Jose MD POINT OF CARE TEST ORDERABLES Fi nal Result Performing Organization Address [facility] Co de Phone Number [facility] [address] * POC Lactate (04/18/2025 12:56 PM EDT) POC Lactate 1.89 0.50 - 2.20 mmol/L 04/18/2025 1:37 PM EDT [facility] Blood, Arterial 04/18/2025 1 2:56 PM EDT 04/18/2025 1:37 PM EDT us Ludin Jose MD POINT OF CARE TEST ORDERABLES Fi nal Result Performing Organization Address [facility] Co de Phone Number [facility] [address] * (ABNORMAL) POC Glucose (04/18/2025 12:56 PM EDT) POC Glucose, Arterial 102(H) 70 - 100 mg/dL 04/18/2025 1:37 PM EDT [facility] Blood, Arterial 04/18/2025 1 2:56 PM EDT 04/18/2025 1:37 PM EDT us Ludin Jose MD POINT OF CARE TEST ORDERABLES Fi nal Result [facility] [address] * POC Ionized Calcium (04/18/2025 12:56 PM EDT) POC Ionized Calcium 4.90 4.50 - 5.30 mg/dL 04/18/2025 1:37 PM EDT [facility] Blood, Arterial 04/18/2025 1 2:56 PM EDT 04/18/2025 1:37 PM EDT us Ludin Jose MD POINT OF CARE TEST ORDERABLES Fi nal Result [facility] [address] [facility]. [address] * POC Potassium (04/18/2025 12:56 PM EDT) Pathologist [facility] POC Potassium 4.4 3.5 - 5.3 mmol/L 04/18/2025 1:37 PM EDT [facility] Blood, Arterial 04/18/2025 1 2:56 PM EDT 04/18/2025 1:37 PM EDT us Ludin Jose MD POINT OF CARE TEST ORDERABLES Fi nal Result [facility] [address] * POC Sodium (04/18/2025 12:56 PM EDT) Pathologist [facility] POC Sodium 139 136 - 146 mmol/L 04/18/2025 1:37 PM EDT [facility] Blood, Arterial 04/18/2025 1 2:56 PM EDT 04/18/2025 1:37 PM EDT us Ludin Jose MD POINT OF CARE TEST ORDERABLES Fi nal Result [facility] [address] [facility]. [address] * (ABNORMAL) POC TCO2 (04/18/2025 12:56 PM EDT) POC TCO2, Arterial 21(L) 23 - 27 mmol/L 04/18/2025 1:37 PM EDT [facility] Blood, Arterial 04/18/2025 1 2:56 PM EDT 04/18/2025 1:37 PM EDT us Ludin Jose MD POINT OF CARE TEST ORDERABLES Fi nal Result [facility] [address] [facility]. [address] * (ABNORMAL) POC O2 SAT (04/18/2025 12:56 PM EDT) POC O2 Saturation, Arterial 100(H) 95 - 98 % 04/18/2025 1:37 PM EDT [facility] Blood, Arterial 04/18/2025 1 2:56 PM EDT 04/18/2025 1:37 PM EDT us Ludin Jose MD POINT OF CARE TEST ORDERABLES Fi nal Result Performing Organization Address [facility] Co de Phone Number [facility] [address] [facility]. [address] * (ABNORMAL) POC Base Excess (04/18/2025 12:56 PM EDT) POC Base Excess, Arterial -5(L) -2 - 3 mmol/L 04/18/2025 1:37 PM EDT [facility] Blood, Arterial 04/18/2025 1 2:56 PM EDT 04/18/2025 1:37 PM EDT us Ludin Jose MD POINT OF CARE TEST ORDERABLES Fi nal Result [facility] [address] [facility]. [address] * (ABNORMAL) POC HCO3 (04/18/2025 12:56 PM EDT) POC HCO3, Arterial 20(L) 22 - 26 mmol/L 04/18/2025 1:37 PM EDT [facility] Blood, Arterial 04/18/2025 1 2:56 PM EDT 04/18/2025 1:37 PM EDT Ludin Jose MD POINT OF CARE TEST ORDERABLES Fi nal Result Performing Organization Address City/[facility]/ZIP Co de Phone Number [facility] [address] [facility]. [address] * (ABNORMAL) POC PO2 (04/18/2025 12:56 PM EDT) POC pO2, Arterial 195(H) 80 - 100 mm Hg 04/18/2025 1:37 PM EDT [facility] Blood, Arterial 04/18/2025 1 2:56 PM EDT 04/18/2025 1:37 PM EDT Ludin Jsoe MD POINT OF CARE TEST ORDERABLES Fi nal Result Performing Organization Address [facility] Co de Phone Number [facility] [address] [facility]. [address] * POC PCO2 (04/18/2025 12:56 PM EDT) POC pCO2, Arterial 36 35 - 45 mm Hg 04/18/2025 1:37 PM EDT [facility] Blood, Arterial 04/18/2025 1 2:56 PM EDT 04/18/2025 1:37 PM EDT Ludin Jose MD POINT OF CARE TEST ORDERABLES Fi nal Result Performing Organization Address City/[facility] Co de Phone Number [facility] [address] [facility]. [address] * POC pH (04/18/2025 12:56 PM EDT) POC pH, Arterial 7.36 7.35 - 7.45 04/18/2025 1:37 PM EDT [facility] Blood, Arterial 04/18/2025 1 2:56 PM EDT 04/18/2025 1:37 PM EDT us Ludin Jose MD POINT OF CARE TEST ORDERABLES Fi nal Result Performing Organization Address [facility] Phone Number [facility] [address] [facility] * (ABNORMAL) POC INR (04/18/2025 12:51 PM EDT) Prothrombin Time INR, POC 6.1(HH) 0.8 - 1.4 04/19/2025 6:33 AM EDT [facility] Comment: Test results may vary [...] ORDERABLES Fi nal Result Performing Organization Address [facility] Phone Number [facility] [address] [facility]. [address] * Transfuse RBC Transfusion Rate: Per [...] Sample Type Arterial 04/18/2025 12:54 PM EDT [facility] Blood, Arterial 04/18/2025 1 2:11 PM EDT 04/18/2025 12:54 PM EDT us Ludin Jose MD POINT OF CARE TEST ORDERABLES Fi nal Result Performing Organization Address City/[facility] Co de Phone Number [facility] [address] [place] [address]. [address] * POC Anion Gap (04/18/2025 12:11 PM EDT) POC Anion Gap, Arterial 9 3 - 16 mmol/L 04/18/2025 12:54 PM EDT [facility] Blood, Arterial 04/18/2025 1 2:11 PM EDT 04/18/2025 12:54 PM EDT us Ludin Jose MD POINT OF CARE TEST ORDERABLES Fi nal Result Performing Organization Address [facility] Co de Phone Number [facility] [address] [place] [address]. [address] * POC Chloride (04/18/2025 12:11 PM EDT) POC Chloride 107 98 - 110 mmol/L 04/18/2025 12:54 PM EDT [facility] Blood, Arterial 04/18/2025 1 2:11 PM EDT 04/18/2025 12:54 PM EDT us Ludin Jose MD POINT OF CARE TEST ORDERABLES Fi nal Result Performing Organization Address City/[facility] Co de Phone Number [facility] [address] [place] [address]. [address] * (ABNORMAL) POC Hemoglobin (04/18/2025 12:11 PM EDT) POC Hemoglobin 10.1(L) 12.0 - 16.0 g/dL 04/18/2025 12:54 PM EDT [facility] Blood, Arterial 04/18/2025 1 2:11 PM EDT 04/18/2025 12:54 PM EDT us Ludin Jose MD POINT OF CARE TEST ORDERABLES Fi nal Result Performing Organization Address [facility] Co de Phone Number [facility] [address] * (ABNORMAL) POC hematocrit (04/18/2025 12:11 PM EDT) POC Hematocrit 30.0(L) 35 - 45 % 04/18/2025 12:54 PM EDT [facility] Blood, Arterial 04/18/2025 1 2:11 PM EDT 04/18/2025 12:54 PM EDT Ludin Jose MD POINT OF CARE TEST ORDERABLES Fi nal Result Performing Organization Address [facility] Co de Phone Number [facility] [address] [facility]. [address] * POC Lactate (04/18/2025 12:11 PM EDT) POC Lactate 1.24 0.50 - 2.20 mmol/L 04/18/2025 12:54 PM EDT [facility] Blood, Arterial 04/18/2025 1 2:11 PM EDT 04/18/2025 12:54 PM EDT us Ludin Jose MD POINT OF CARE TEST ORDERABLES Fi nal Result Performing Organization Address [facility] Co de Phone Number [facility] [address] [facility]. [address] * (ABNORMAL) POC Glucose (04/18/2025 12:11 PM EDT) POC Glucose, Arterial 126(H) 70 - 100 mg/dL 04/18/2025 12:54 PM EDT [facility] Blood, Arterial 04/18/2025 1 2:11 PM EDT 04/18/2025 12:54 PM EDT us Ludin Jose MD POINT OF CARE TEST ORDERABLES Fi nal Result [facility] [address] * POC Ionized Calcium (04/18/2025 12:11 PM EDT) POC Ionized Calcium 4.70 4.50 - 5.30 mg/dL 04/18/2025 12:54 PM EDT [facility] Blood, Arterial 04/18/2025 1 2:11 PM EDT 04/18/2025 12:54 PM EDT Ludin Jose MD POINT OF CARE TEST ORDERABLES Fi nal Result Performing Organization Address City/[facility]/ZIP Co de Phone Number [facility] [address] [facility]. [address] * POC Potassium (04/18/2025 12:11 PM EDT) Pathologist [facility] POC Potassium 4.2 3.5 - 5.3 mmol/L 04/18/2025 12:54 PM EDT [facility] Blood, Arterial 04/18/2025 1 2:11 PM EDT 04/18/2025 12:54 PM EDT us Ludin Jose MD POINT OF CARE TEST ORDERABLES Fi nal Result Performing Organization Address [facility]/ZIP Co de Phone Number [facility] [address] [facility]. [address] * POC Sodium (04/18/2025 12:11 PM EDT) Pathologist [facility] POC Sodium 137 136 - 146 mmol/L 04/18/2025 12:54 PM EDT [facility] Blood, Arterial 04/18/2025 1 2:11 PM EDT 04/18/2025 12:54 PM EDT us Ludin Jose MD POINT OF CARE TEST ORDERABLES Fi nal Result [facility] [address] [facility]. [address] * (ABNORMAL) POC TCO2 (04/18/2025 12:11 PM EDT) POC TCO2, Arterial 22(L) 23 - 27 mmol/L 04/18/2025 12:54 PM EDT [facility] Blood, Arterial 04/18/2025 1 2:11 PM EDT 04/18/2025 12:54 PM EDT us Ludin Jose MD POINT OF CARE TEST ORDERABLES Fi nal Result [facility] [address] [facility]. [address] * (ABNORMAL) POC O2 SAT (04/18/2025 12:11 PM EDT) Pathologist [facility] POC O2 Saturation, Arterial 99(H) 95 - 98 % 04/18/2025 12:54 PM EDT [facility] Blood, Arterial 04/18/2025 1 2:11 PM EDT 04/18/2025 12:54 PM EDT us Ludin Jose MD POINT OF CARE TEST ORDERABLES Fi nal Result Performing Organization Address [facility] Co de Phone Number [facility] [address] [facility]. [address] * (ABNORMAL) POC Base Excess (04/18/2025 12:11 PM EDT) Pathologist [facility] POC Base Excess, Arterial -5(L) -2 - 3 mmol/L 04/18/2025 12:54 PM EDT [facility] Blood, Arterial 04/18/2025 1 2:11 PM EDT 04/18/2025 12:54 PM EDT us Ludin Jose MD POINT OF CARE TEST ORDERABLES Fi nal Result Performing Organization Address City/[facility]/ZIP Co de Phone Number [facility] [address] [facility]. [address] * (ABNORMAL) POC HCO3 (04/18/2025 12:11 PM EDT) POC HCO3, Arterial 21(L) 22 - 26 mmol/L 04/18/2025 12:54 PM EDT [facility] Blood, Arterial 04/18/2025 1 2:11 PM EDT 04/18/2025 12:54 PM EDT Ludin Jose MD POINT OF CARE TEST ORDERABLES Fi nal Result [facility] [address] [facility]. [address] * (ABNORMAL) POC PO2 (04/18/2025 12:11 PM EDT) POC pO2, Arterial 160(H) 80 - 100 mm Hg 04/18/2025 12:54 PM EDT [facility] Blood, Arterial 04/18/2025 1 2:11 PM EDT 04/18/2025 12:54 PM EDT Ludin Jose MD POINT OF CARE TEST ORDERABLES Fi nal Result Performing Organization Address City/[facility] Co de Phone Number [facility] [address] [facility]. [address] * POC PCO2 (04/18/2025 12:11 PM EDT) POC pCO2, Arterial 38 35 - 45 mm Hg 04/18/2025 12:54 PM EDT [facility] Blood, Arterial 04/18/2025 1 2:11 PM EDT 04/18/2025 12:54 PM EDT Ludin Jose MD POINT OF CARE TEST ORDERABLES Fi nal Result Performing Organization Address City/State/[facility] Co de Phone Number [facility] [address] [facility]. [address] * POC pH (04/18/2025 12:11 PM EDT) POC pH, Arterial 7.35 7.35 - 7.45 04/18/2025 12:54 PM EDT [facility] Blood, Arterial 04/18/2025 1 2:11 PM EDT 04/18/2025 12:54 PM EDT us Ludin Jose MD POINT OF CARE TEST ORDERABLES Fi nal Result Performing Organization Address City/[facility] Co de Phone Number [facility] [address] [facility]. [address] * POC INR (04/18/2025 12:05 PM EDT) Prothrombin Time INR, POC 1.3 0.8 - 1.4 04/19/2025 6:33 AM EDT [facility] Comment: Test results may vary [...] ORDERABLES Fi nal Result Performing Organization Address [facility] Co de Phone Number [facility] [address] [facility]. [address] * POC Sample Type (04/18/2025 11:16 AM EDT) Pathologist [facility] POC Sample Type Arterial 04/18/2025 12:09 PM EDT [facility] Blood, Arterial 04/18/2025 1 1:16 AM EDT 04/18/2025 12:09 PM EDT us Ludin Jose MD POINT OF CARE TEST ORDERABLES Fi nal Result Performing Organization Address [facility] Co de Phone Number [facility] [address] * POC Anion Gap (04/18/2025 11:16 AM EDT) POC Anion Gap, Arterial 6 3 - 16 mmol/L 04/18/2025 12:09 PM EDT [facility] Blood, Arterial 04/18/2025 1 1:16 AM EDT 04/18/2025 12:09 PM EDT us Ludin Jose MD POINT OF CARE TEST ORDERABLES Fi nal Result Performing Organization Address City/[facility]/ZIP Co de Phone Number [facility] [address] [facility]. [address] * POC Chloride (04/18/2025 11:16 AM EDT) Pathologist [facility] POC Chloride 108 98 - 110 mmol/L 04/18/2025 12:09 PM EDT [facility] Blood, Arterial 04/18/2025 1 1:16 AM EDT 04/18/2025 12:09 PM EDT us Ludin Jose MD POINT OF CARE TEST ORDERABLES Fi nal Result Performing Organization Address [facility] Co de Phone Number [facility] [address] [facility]. [address] * (ABNORMAL) POC Hemoglobin (04/18/2025 11:16 AM EDT) [facility] POC Hemoglobin 10.7(L) 12.0 - 16.0 g/dL 04/18/2025 12:09 PM EDT [facility] Blood, Arterial 04/18/2025 1 1:16 AM EDT 04/18/2025 12:09 PM EDT us Ludin Jose MD POINT OF CARE TEST ORDERABLES Fi nal Result Performing Organization Address City/[facility] Co de Phone Number [facility] [address] [facility]. [address] * (ABNORMAL) POC hematocrit (04/18/2025 11:16 AM EDT) [facility] POC Hematocrit 31.0(L) 35 - 45 % 04/18/2025 12:09 PM EDT [facility] Blood, Arterial 04/18/2025 1 1:16 AM EDT 04/18/2025 12:09 PM EDT us Ludin Jose MD POINT OF CARE TEST ORDERABLES Fi nal Result Performing Organization Address City/[facility] Co de Phone Number [facility] [address] [facility]. [address] * POC Lactate (04/18/2025 11:16 AM EDT) [facility] POC Lactate 1.10 0.50 - 2.20 mmol/L 04/18/2025 12:09 PM EDT [facility] Blood, Arterial 04/18/2025 1 1:16 AM EDT 04/18/2025 12:09 PM EDT us Ludin Jose MD POINT OF CARE TEST ORDERABLES Fi nal Result Performing Organization Address [facility] Co de Phone Number [facility] [address] [facility]. [address] * (ABNORMAL) POC Glucose (04/18/2025 11:16 AM EDT) [facility] POC Glucose, Arterial 116(H) 70 - 100 mg/dL 04/18/2025 12:09 PM EDT [facility] Blood, Arterial 04/18/2025 1 1:16 AM EDT 04/18/2025 12:09 PM EDT us Ludin Jose MD POINT OF CARE TEST ORDERABLES Fi nal Result Performing Organization Address City/[facility] Co de Phone Number [facility] [address] [facility]. [address] * POC Ionized Calcium (04/18/2025 11:16 AM EDT) [facility] POC Ionized Calcium 5.20 4.50 - 5.30 mg/dL 04/18/2025 12:09 PM EDT [facility] Blood, Arterial 04/18/2025 1 1:16 AM EDT 04/18/2025 12:09 PM EDT us Ludin Jose MD POINT OF CARE TEST ORDERABLES Fi nal Result Performing Organization Address City/[facility] Co de Phone Number [facility] [address] [place] [address]. [address] * POC Potassium (04/18/2025 11:16 AM EDT) POC Potassium 4.1 3.5 - 5.3 mmol/L 04/18/2025 12:09 PM EDT [facility] Blood, Arterial 04/18/2025 1 1:16 AM EDT 04/18/2025 12:09 PM EDT us Ludin Jose MD POINT OF CARE TEST ORDERABLES Fi nal Result Performing Organization Address [facility] de Phone Number [facility] [address] [place] [address]. [address] * POC Sodium (04/18/2025 11:16 AM EDT) POC Sodium 137 136 - 146 mmol/L 04/18/2025 12:09 PM EDT [facility] Blood, Arterial 04/18/2025 1 1:16 AM EDT 04/18/2025 12:09 PM EDT us Ludin Jose MD POINT OF CARE TEST ORDERABLES Fi nal Result Performing Organization Address [facility] Co de Phone Number [facility] [address] [place] [address]. [address] * POC TCO2 (04/18/2025 11:16 AM EDT) POC TCO2, Arterial 24 23 - 27 mmol/L 04/18/2025 12:09 PM EDT [facility] Blood, Arterial 04/18/2025 1 1:16 AM EDT 04/18/2025 12:09 PM EDT us Ludin Jose MD POINT OF CARE TEST ORDERABLES Fi nal Result [facility] [address] * (ABNORMAL) POC O2 SAT (04/18/2025 11:16 AM EDT) POC O2 Saturation, Arterial 99(H) 95 - 98 % 04/18/2025 12:09 PM EDT [facility] Blood, Arterial 04/18/2025 1 1:16 AM EDT 04/18/2025 12:09 PM EDT us Ludin Jose MD POINT OF CARE TEST ORDERABLES Fi nal Result Performing Organization Address [facility] Co de Phone Number [facility] [address] [facility]. [address] * POC Base Excess (04/18/2025 11:16 AM EDT) POC Base Excess, Arterial -2 -2 - 3 mmol/L 04/18/2025 12:09 PM EDT [facility] Blood, Arterial 04/18/2025 1 1:16 AM EDT 04/18/2025 12:09 PM EDT us Ludin Jose MD POINT OF CARE TEST ORDERABLES Fi nal Result Performing Organization Address City/[facility]/ZIP Co de Phone Number [facility] [address] * POC HCO3 (04/18/2025 11:16 AM EDT) POC HCO3, Arterial 23 22 - 26 mmol/L 04/18/2025 12:09 PM EDT [facility] Blood, Arterial 04/18/2025 1 1:16 AM EDT 04/18/2025 12:09 PM EDT us Ludin Jose MD POINT OF CARE TEST ORDERABLES Fi nal Result [facility] [address] * (ABNORMAL) POC PO2 (04/18/2025 11:16 AM EDT) POC pO2, Arterial 136(H) 80 - 100 mm Hg 04/18/2025 12:09 PM EDT [facility] Blood, Arterial 04/18/2025 1 1:16 AM EDT 04/18/2025 12:09 PM EDT us Ludin Jose MD POINT OF CARE TEST ORDERABLES Fi nal Result [facility] [address] * POC PCO2 (04/18/2025 11:16 AM EDT) POC pCO2, Arterial 38 35 - 45 mm Hg 04/18/2025 12:09 PM EDT [facility] Blood, Arterial 04/18/2025 1 1:16 AM EDT 04/18/2025 12:09 PM EDT us Ludin Jose MD POINT OF CARE TEST ORDERABLES Fi nal Result Performing Organization Address City/[facility]/ZIP Co de Phone Number [facility] [address] * POC pH (04/18/2025 11:16 AM EDT) POC pH, Arterial 7.38 7.35 - 7.45 04/18/2025 12:09 PM EDT [facility] Blood, Arterial 04/18/2025 1 1:16 AM EDT 04/18/2025 12:09 PM EDT us Ludin Jose MD POINT OF CARE TEST ORDERABLES Fi nal Result [facility] [address] * POC Sample Type (04/18/2025 11:13 AM EDT) POC Sample Type Arterial 04/18/2025 11:46 AM EDT [facility] Blood, Arterial 04/18/2025 1 1:13 AM EDT 04/18/2025 11:46 AM EDT Ludin Jose MD POINT OF CARE TEST ORDERABLES Fi nal Result Performing Organization Address City/[facility]/ZIP Co de Phone Number [facility] [address] [place] [address]. [address] * POC Anion Gap (04/18/2025 11:13 AM EDT) Pathologist [facility] POC Anion Gap, Arterial cnc 3 - 16 mmol/L 04/18/2025 11:46 AM EDT [facility] Blood, Arterial 04/18/2025 1 1:13 AM EDT 04/18/2025 11:46 AM EDT Ludin Jose MD POINT OF CARE TEST ORDERABLES Fi nal Result Performing Organization Address [facility] de Phone Number [facility] [address] [facility]. [address] * POC Chloride (04/18/2025 11:13 AM EDT) Pathologist [facility] POC Chloride cnc 98 - 110 mmol/L 04/18/2025 11:46 AM EDT [facility] Blood, Arterial 04/18/2025 1 1:13 AM EDT 04/18/2025 11:46 AM EDT Ludin Jose MD POINT OF CARE TEST ORDERABLES Fi nal Result Performing Organization Address [facility] Co de Phone Number [facility] [address] [facility]. [address] * POC Hemoglobin (04/18/2025 11:13 AM EDT) Pathologist [facility] POC Hemoglobin cnc 12.0 - 16.0 g/dL 04/18/2025 11:46 AM EDT [facility] Blood, Arterial 04/18/2025 1 1:13 AM EDT 04/18/2025 11:46 AM EDT us Ludin Jose MD POINT OF CARE TEST ORDERABLES Fi nal Result Performing Organization Address City/[facility] Co de Phone Number [facility] [address] [place] [address]. [address] * POC hematocrit (04/18/2025 11:13 AM EDT) POC Hematocrit Failed iQC 35 - 45 % 04/18/2025 11:46 AM EDT [facility] Blood, Arterial 04/18/2025 1 1:13 AM EDT 04/18/2025 11:46 AM EDT us Ludin Jose MD POINT OF CARE TEST ORDERABLES Fi nal Result Performing Organization Address [facility] de Phone Number [facility] [address] [facility]. [address] * POC Lactate (04/18/2025 11:13 AM EDT) [facility] POC Lactate 1.13 0.50 - 2.20 mmol/L 04/18/2025 11:46 AM EDT [facility] Blood, Arterial 04/18/2025 1 1:13 AM EDT 04/18/2025 11:46 AM EDT us Ludin Jose MD POINT OF CARE TEST ORDERABLES Fi nal Result Performing Organization Address City/[facility] Co de Phone Number [facility] [address] [place] [address]. [address] * (ABNORMAL) POC Glucose (04/18/2025 11:13 AM EDT) POC Glucose, Arterial 123(H) 70 - 100 mg/dL 04/18/2025 11:46 AM EDT [facility] Blood, Arterial 04/18/2025 1 1:13 AM EDT 04/18/2025 11:46 AM EDT us uLdin Jose MD POINT OF CARE TEST ORDERABLES Fi nal Result Performing Organization Address [facility] de Phone Number [facility] [address] [place] [address]. [address] * POC Ionized Calcium (04/18/2025 11:13 AM EDT) POC Ionized Calcium 5.20 4.50 - 5.30 mg/dL 04/18/2025 11:46 AM EDT [facility] Blood, Arterial 04/18/2025 1 1:13 AM EDT 04/18/2025 11:46 AM EDT us Ludin Jose MD POINT OF CARE TEST ORDERABLES Fi nal Result Performing Organization Address [facility] de Phone Number [facility] [address] [place] [address]. [address] * POC Potassium (04/18/2025 11:13 AM EDT) POC Potassium 4.1 3.5 - 5.3 mmol/L 04/18/2025 11:46 AM EDT [facility] Blood, Arterial 04/18/2025 1 1:13 AM EDT 04/18/2025 11:46 AM EDT us Ludin Jose MD POINT OF CARE TEST ORDERABLES Fi nal Result Performing Organization Address [facility] de Phone Number [facility] [address] [place] [address]. [address] * POC Sodium (04/18/2025 11:13 AM EDT) POC Sodium 138 136 - 146 mmol/L 04/18/2025 11:46 AM EDT [facility] Blood, Arterial 04/18/2025 1 1:13 AM EDT 04/18/2025 11:46 AM EDT Result Ashutosh Jose MD POINT OF CARE TEST ORDERABLES Fi nal Result [facility] [address] * POC TCO2 (04/18/2025 11:13 AM EDT) POC TCO2, Arterial 24 23 - 27 mmol/L 04/18/2025 11:46 AM EDT [facility] Blood, Arterial 04/18/2025 1 1:13 AM EDT 04/18/2025 11:46 AM EDT Ludin Jose MD POINT OF CARE TEST ORDERABLES Fi nal Result Performing Organization Address [facility] Co de Phone Number [facility] [address] * (ABNORMAL) POC O2 SAT (04/18/2025 11:13 AM EDT) POC O2 Saturation, Arterial 99(H) 95 - 98 % 04/18/2025 11:46 AM EDT [facility] Blood, Arterial 04/18/2025 1 1:13 AM EDT 04/18/2025 11:46 AM EDT Ludin Jose MD POINT OF CARE TEST ORDERABLES Fi nal Result Performing Organization Address City/[facility] Co de Phone Number [facility] [address] * POC Base Excess (04/18/2025 11:13 AM EDT) POC Base Excess, Arterial -2 -2 - 3 mmol/L 04/18/2025 11:46 AM EDT [facility] Blood, Arterial 04/18/2025 1 1:13 AM EDT 04/18/2025 11:46 AM EDT us Ludin Jose MD POINT OF CARE TEST ORDERABLES Fi nal Result [facility] [address] * POC HCO3 (04/18/2025 11:13 AM EDT) POC HCO3, Arterial 23 22 - 26 mmol/L 04/18/2025 11:46 AM EDT [facility] Blood, Arterial 04/18/2025 1 1:13 AM EDT 04/18/2025 11:46 AM EDT Ludin Jose MD POINT OF CARE TEST ORDERABLES Fi nal Result [facility] [address] * (ABNORMAL) POC PO2 (04/18/2025 11:13 AM EDT) POC pO2, Arterial 133(H) 80 - 100 mm Hg 04/18/2025 11:46 AM EDT [facility] Blood, Arterial 04/18/2025 1 1:13 AM EDT 04/18/2025 11:46 AM EDT Ludin Jose MD POINT OF CARE TEST ORDERABLES Fi nal Result Performing Organization Address City/[facility]/ZIP Co de Phone Number [facility] [address] [place] [facility]. [address] * POC PCO2 (04/18/2025 11:13 AM EDT) POC pCO2, Arterial 38 35 - 45 mm Hg 04/18/2025 11:46 AM EDT [facility] Blood, Arterial 04/18/2025 1 1:13 AM EDT 04/18/2025 11:46 AM EDT Ludin Jose MD POINT OF CARE TEST ORDERABLES Fi nal Result Performing Organization Address City/[facility]/ZIP Co de Phone Number [facility] [address] * POC pH (04/18/2025 11:13 AM EDT) POC pH, Arterial 7.38 7.35 - 7.45 04/18/2025 11:46 AM EDT [facility] Blood, Arterial 04/18/2025 1 1:13 AM EDT 04/18/2025 11:46 AM EDT us Ludin Jose MD POINT OF CARE TEST ORDERABLES Fi nal Result Performing Organization Address [facility] Co de Phone Number [facility] [address] [place] [address]. [address] * POC INR (04/18/2025 11:07 AM EDT) Prothrombin Time INR, POC 1.3 0.8 - 1.4 04/19/2025 6:33 AM EDT [facility] Comment: Test results may vary [...] ORDERABLES Fi nal Result Performing Organization Address [facility] Co de Phone Number [facility] [address] [facility]. [address] * POC Sample Type (04/18/2025 10:17 AM EDT) POC Sample Type Arterial 04/18/2025 11:10 AM EDT [facility] Blood, Arterial 04/18/2025 1 0:17 AM EDT 04/18/2025 11:10 AM EDT us Ludin Jose MD POINT OF CARE TEST ORDERABLES Fi nal Result Performing Organization Address [facility] Co de Phone Number [facility] [address] [facility] * POC Anion Gap (04/18/2025 10:17 AM EDT) POC Anion Gap, Arterial 10 3 - 16 mmol/L 04/18/2025 11:10 AM EDT [facility] Blood, Arterial 04/18/2025 1 0:17 AM EDT 04/18/2025 11:10 AM EDT us Ludin Jose MD POINT OF CARE TEST ORDERABLES Fi nal Result [facility] [address] * POC Chloride (04/18/2025 10:17 AM EDT) Pathologist [facility] POC Chloride 106 98 - 110 mmol/L 04/18/2025 11:10 AM EDT [facility] Blood, Arterial 04/18/2025 1 0:17 AM EDT 04/18/2025 11:10 AM EDT us Ludin Jose MD POINT OF CARE TEST ORDERABLES Fi nal Result Performing Organization Address [facility] Co de Phone Number [facility] [address] * (ABNORMAL) POC Hemoglobin (04/18/2025 10:17 AM EDT) Pathologist [facility] POC Hemoglobin 9.8(L) 12.0 - 16.0 g/dL 04/18/2025 11:10 AM EDT [facility] Blood, Arterial 04/18/2025 1 0:17 AM EDT 04/18/2025 11:10 AM EDT us Ludin Jose MD POINT OF CARE TEST ORDERABLES Fi nal Result Performing Organization Address City/[facility]/ZIP Co de Phone Number [facility] [address] * (ABNORMAL) POC hematocrit (04/18/2025 10:17 AM EDT) POC Hematocrit 29.0(L) 35 - 45 % 04/18/2025 11:10 AM EDT [facility] [facility] Blood, Arterial 04/18/2025 1 0:17 AM EDT 04/18/2025 11:10 AM EDT us Ludin Jose MD POINT OF CARE TEST ORDERABLES Fi nal Result Performing Organization Address City/[facility] Co de Phone Number [facility] [address] [place] [address]. [address] * POC Lactate (04/18/2025 10:17 AM EDT) [facility] POC Lactate 1.06 0.50 - 2.20 mmol/L 04/18/2025 11:10 AM EDT [facility] Blood, Arterial 04/18/2025 1 0:17 AM EDT 04/18/2025 11:10 AM EDT us Ludin Jose MD POINT OF CARE TEST ORDERABLES Fi nal Result Performing Organization Address [facility] Co de Phone Number [facility] [address] [place] [address]. [address] * (ABNORMAL) POC Glucose (04/18/2025 10:17 AM EDT) [facility] POC Glucose, Arterial 109(H) 70 - 100 mg/dL 04/18/2025 11:10 AM EDT [facility] Blood, Arterial 04/18/2025 1 0:17 AM EDT 04/18/2025 11:10 AM EDT us Ludin Jose MD POINT OF CARE TEST ORDERABLES Fi nal Result Performing Organization Address City/[facility] Co de Phone Number [facility] [address] [place] [address]. [address] * (ABNORMAL) POC Ionized Calcium (04/18/2025 10:17 AM EDT) Pathologist [facility] POC Ionized Calcium 5.40(H) 4.50 - 5.30 mg/dL 04/18/2025 11:10 AM EDT [facility] Blood, Arterial 04/18/2025 1 0:17 AM EDT 04/18/2025 11:10 AM EDT Ludin Jose MD POINT OF CARE TEST ORDERABLES Fi nal Result [facility] [address] [facility]. [address] * POC Potassium (04/18/2025 10:17 AM EDT) POC Potassium 3.8 3.5 - 5.3 mmol/L 04/18/2025 11:10 AM EDT [facility] Blood, Arterial 04/18/2025 1 0:17 AM EDT 04/18/2025 11:10 AM EDT Ludin Jose MD POINT OF CARE TEST ORDERABLES Fi nal Result [facility] [address] [facility]. [address] * POC Sodium (04/18/2025 10:17 AM EDT) POC Sodium 139 136 - 146 mmol/L 04/18/2025 11:10 AM EDT [facility] Blood, Arterial 04/18/2025 1 0:17 AM EDT 04/18/2025 11:10 AM EDT Ludin Jose MD POINT OF CARE TEST ORDERABLES Fi nal Result [facility] [address] [facility]. [address] * POC TCO2 (04/18/2025 10:17 AM EDT) POC TCO2, Arterial 24 23 - 27 mmol/L 04/18/2025 11:10 AM EDT [facility] Blood, Arterial 04/18/2025 1 0:17 AM EDT 04/18/2025 11:10 AM EDT us Ludin Jose MD POINT OF CARE TEST ORDERABLES Fi nal Result Performing Organization Address [facility] Co de Phone Number [facility] [address] [facility]. [address] * (ABNORMAL) POC O2 SAT (04/18/2025 10:17 AM EDT) POC O2 Saturation, Arterial 99(H) 95 - 98 % 04/18/2025 11:10 AM EDT [facility] Blood, Arterial 04/18/2025 1 0:17 AM EDT 04/18/2025 11:10 AM EDT us Ludin Jose MD POINT OF CARE TEST ORDERABLES Fi nal Result Performing Organization Address [facility] Co de Phone Number [facility] [address] [facility]. [address] * POC Base Excess (04/18/2025 10:17 AM EDT) POC Base Excess, Arterial -2 -2 - 3 mmol/L 04/18/2025 11:10 AM EDT [facility] Blood, Arterial 04/18/2025 1 0:17 AM EDT 04/18/2025 11:10 AM EDT us Ludin Jose MD POINT OF CARE TEST ORDERABLES Fi nal Result Performing Organization Address City/[facility] Co de Phone Number [facility] [address] [facility]. [address] * POC HCO3 (04/18/2025 10:17 AM EDT) POC HCO3, Arterial 23 22 - 26 mmol/L 04/18/2025 11:10 AM EDT [facility] Blood, Arterial 04/18/2025 1 0:17 AM EDT 04/18/2025 11:10 AM EDT us Ludin Jose MD POINT OF CARE TEST ORDERABLES Fi nal Result Performing Organization Address City/[facility] Co de Phone Number [facility] [address] [place] [address]. [address] * (ABNORMAL) POC PO2 (04/18/2025 10:17 AM EDT) POC pO2, Arterial 134(H) 80 - 100 mm Hg 04/18/2025 11:10 AM EDT [facility] Blood, Arterial 04/18/2025 1 0:17 AM EDT 04/18/2025 11:10 AM EDT us Ludin Jose MD POINT OF CARE TEST ORDERABLES Fi nal Result Performing Organization Address [facility] Co de Phone Number [address] * POC PCO2 (04/18/2025 10:17 AM EDT) POC pCO2, Arterial 38 35 - 45 mm Hg 04/18/2025 11:10 AM EDT [facility] Blood, Arterial 04/18/2025 1 0:17 AM EDT 04/18/2025 11:10 AM EDT us Ludin Jose MD POINT OF CARE TEST ORDERABLES Fi nal Result Performing Organization Address [facility] de Phone Number [facility] [address] [place] [address]. [address] * POC pH (04/18/2025 10:17 AM EDT) POC pH, Arterial 7.39 7.35 - 7.45 04/18/2025 11:10 AM EDT [facility] Blood, Arterial 04/18/2025 1 0:17 AM EDT 04/18/2025 11:10 AM EDT us Ludin Jose MD POINT OF CARE TEST ORDERABLES Fi nal Result Performing Organization Address [facility] Co de Phone Number [facility] [address] [facility]. [address] * POC INR (04/18/2025 10:12 AM EDT) Prothrombin Time INR, POC 1.3 0.8 - 1.4 04/19/2025 6:33 AM EDT [facility] Comment: Test results may vary [...] ORDERABLES Fi nal Result Performing Organization Address [facility] de Phone Number [facility] [address] [facility]. [address] * (ABNORMAL) POC INR (04/18/2025 9:19 AM EDT) Prothrombin Time INR, POC 1.7(H) 0.8 - 1.4 04/19/2025 6:33 AM EDT [facility] Comment: Test results may vary [...] ORDERABLES Fi nal Result Performing Organization Address [facility] Co de Phone Number [facility] [address] * POC Sample Type (04/18/2025 9:17 AM EDT) POC Sample Type Arterial 04/18/2025 9:24 AM EDT [facility] Blood, Arterial 04/18/2025 9 :17 AM EDT 04/18/2025 9:24 AM EDT Ludin Jose MD POINT OF CARE TEST ORDERABLES Fi nal Result Performing Organization Address City/[facility]/ZIP Co de Phone Number [facility] [address] [place] [address]. [address] * POC Anion Gap (04/18/2025 9:17 AM EDT) [facility] POC Anion Gap, Arterial 9 3 - 16 mmol/L 04/18/2025 9:24 AM EDT [facility] Blood, Arterial 04/18/2025 9 :17 AM EDT 04/18/2025 9:24 AM EDT Ludin Jose MD POINT OF CARE TEST ORDERABLES Fi nal Result Performing Organization Address [facility] Co de Phone Number [facility] [address] [place] [address]. [address] * POC Chloride (04/18/2025 9:17 AM EDT) [facility] POC Chloride 104 98 - 110 mmol/L 04/18/2025 9:24 AM EDT [facility] Blood, Arterial 04/18/2025 9 :17 AM EDT 04/18/2025 9:24 AM EDT Ludin Jose MD POINT OF CARE TEST ORDERABLES Fi nal Result Performing Organization Address City/[facility] Co de Phone Number [facility] [address] [facility]. [address] * (ABNORMAL) POC Hemoglobin (04/18/2025 9:17 AM EDT) [facility] POC Hemoglobin 9.5(L) 12.0 - 16.0 g/dL 04/18/2025 9:24 AM EDT [facility] Blood, Arterial 04/18/2025 9 :17 AM EDT 04/18/2025 9:24 AM EDT us Ludin Jose MD POINT OF CARE TEST ORDERABLES Fi nal Result Performing Organization Address [facility] Co de Phone Number [facility] [address] [facility]. [address] * (ABNORMAL) POC hematocrit (04/18/2025 9:17 AM EDT) POC Hematocrit 28.0(L) 35 - 45 % 04/18/2025 9:24 AM EDT [facility] Blood, Arterial 04/18/2025 9 :17 AM EDT 04/18/2025 9:24 AM EDT us Ludin Jose MD POINT OF CARE TEST ORDERABLES Fi nal Result Performing Organization Address [facility] de Phone Number [facility] [address] [facility]. [address] * (ABNORMAL) POC Lactate (04/18/2025 9:17 AM EDT) POC Lactate <0.30(L) 0.50 - 2.20 mmol/L 04/18/2025 9:24 AM EDT [facility] Blood, Arterial 04/18/2025 9 :17 AM EDT 04/18/2025 9:24 AM EDT us Ludin Jose MD POINT OF CARE TEST ORDERABLES Fi nal Result Performing Organization Address [facility] Co de Phone Number [facility] [address] [facility]. [address] * (ABNORMAL) POC Glucose (04/18/2025 9:17 AM EDT) POC Glucose, Arterial 109(H) 70 - 100 mg/dL 04/18/2025 9:24 AM EDT [facility] Blood, Arterial 04/18/2025 9 :17 AM EDT 04/18/2025 9:24 AM EDT us Ludin Jose MD POINT OF CARE TEST ORDERABLES Fi nal Result Performing Organization Address [facility] de Phone Number [facility] [address] [place] [address]. [address] * POC Ionized Calcium (04/18/2025 9:17 AM EDT) POC Ionized Calcium 4.90 4.50 - 5.30 mg/dL 04/18/2025 9:24 AM EDT [facility] Blood, Arterial 04/18/2025 9 :17 AM EDT 04/18/2025 9:24 AM EDT us Ludin Jose MD POINT OF CARE TEST ORDERABLES Fi nal Result Performing Organization Address [facility] de Phone Number [address] * POC Potassium (04/18/2025 9:17 AM EDT) POC Potassium 3.6 3.5 - 5.3 mmol/L 04/18/2025 9:24 AM EDT [facility] Blood, Arterial 04/18/2025 9 :17 AM EDT 04/18/2025 9:24 AM EDT us Ludin Jose MD POINT OF CARE TEST ORDERABLES Fi nal Result Performing Organization Address [facility] de Phone Number [address] * POC Sodium (04/18/2025 9:17 AM EDT) POC Sodium 140 136 - 146 mmol/L 04/18/2025 9:24 AM EDT [facility] Blood, Arterial 04/18/2025 9 :17 AM EDT 04/18/2025 9:24 AM EDT us Ludin Jose MD POINT OF CARE TEST ORDERABLES Fi nal Result Performing Organization Address City/[facility] Co de Phone Number [facility] [address] * (ABNORMAL) POC TCO2 (04/18/2025 9:17 AM EDT) POC TCO2, Arterial 28(H) 23 - 27 mmol/L 04/18/2025 9:24 AM EDT [facility] Blood, Arterial 04/18/2025 9 :17 AM EDT 04/18/2025 9:24 AM EDT Ludin Jose MD POINT OF CARE TEST ORDERABLES Fi nal Result Performing Organization Address [facility] Co de Phone Number [facility] [address] * (ABNORMAL) POC O2 SAT (04/18/2025 9:17 AM EDT) POC O2 Saturation, Arterial 100(H) 95 - 98 % 04/18/2025 9:24 AM EDT [facility] Blood, Arterial 04/18/2025 9 :17 AM EDT 04/18/2025 9:24 AM EDT us Ludin Jose MD POINT OF CARE TEST ORDERABLES Fi nal Result Performing Organization Address [facility] Co de Phone Number [facility] [address] * POC Base Excess (04/18/2025 9:17 AM EDT) POC Base Excess, Arterial 1 -2 - 3 mmol/L 04/18/2025 9:24 AM EDT [facility] Blood, Arterial 04/18/2025 9 :17 AM EDT 04/18/2025 9:24 AM EDT us Ludin Jose MD POINT OF CARE TEST ORDERABLES Fi nal Result Performing Organization Address City/[facility]/ZIP Co de Phone Number [facility] [address] * (ABNORMAL) POC HCO3 (04/18/2025 9:17 AM EDT) POC HCO3, Arterial 27(H) 22 - 26 mmol/L 04/18/2025 9:24 AM EDT [facility] Blood, Arterial 04/18/2025 9 :17 AM EDT 04/18/2025 9:24 AM EDT Ludin Jose MD POINT OF CARE TEST ORDERABLES Fi nal Result Performing Organization Address City/[facility]/ZIP Co de Phone Number [facility] [address] [facility]. [address] * (ABNORMAL) POC PO2 (04/18/2025 9:17 AM EDT) POC pO2, Arterial 354(H) 80 - 100 mm Hg 04/18/2025 9:24 AM EDT [facility] Blood, Arterial 04/18/2025 9 :17 AM EDT 04/18/2025 9:24 AM EDT us Ludin Jose MD POINT OF CARE TEST ORDERABLES Fi nal Result Performing Organization Address [facility] Co de Phone Number [facility] [address] [facility]. [address] * (ABNORMAL) POC PCO2 (04/18/2025 9:17 AM EDT) POC pCO2, Arterial 50(H) 35 - 45 mm Hg 04/18/2025 9:24 AM EDT [facility] Blood, Arterial 04/18/2025 9 :17 AM EDT 04/18/2025 9:24 AM EDT us Ludin Jsoe MD POINT OF CARE TEST ORDERABLES Fi nal Result Performing Organization Address City/[facility] Co de Phone Number [facility] [address] [facility]. [address] * (ABNORMAL) POC pH (04/18/2025 9:17 AM EDT) Pathologist [facility] POC pH, Arterial 7.34(L) 7.35 - 7.45 04/18/2025 9:24 AM EDT [facility] Blood, Arterial 04/18/2025 9 :17 AM EDT 04/18/2025 9:24 AM EDT us Ludin Jose MD POINT OF CARE TEST ORDERABLES Fi nal Result Performing Organization Address City/[facility]/ZIP Co de Phone Number [facility] [address] [facility]. [address] * POC HCG Qualitative, Urine (04/18/2025 6:16 AM EDT) Pathologist [facility] hCG Qualitative -Clinitek Negative Negative 04/18/2025 6:22 AM EDT [facility] Urine 04/18/2025 6:16 AM EDT 04/18/2025 6:22 AM EDT us Ludin Jose MD URINE ORDERABLES Final Result Performing Organization Address City/[facility] Co de Phone Number [facility] [address] [facility]. [address] * (ABNORMAL) Venous Blood Gas, Line/Syringe (04/18/2025 6:03 AM EDT) [facility] PH-Line Draw 7.42 7.32 - 7.42 04/18/2025 6:40 AM EDT [facility] PCO2-Line Draw 39(L) 41 - 51 mm Hg 04/18/2025 6:40 AM EDT [facility] PO2-Line Draw 37 25 - 40 mm Hg 04/18/2025 6:40 AM EDT [facility] HCO3-Line Draw 25 24 - 28 mmol/L 04/18/2025 6:40 AM EDT [facility] CO2 Content-Line Draw 27 25 - 29 mmol/L 04/18/2025 6:40 AM EDT [facility] Base Excess-Line Draw 0.8 -2.0 - 3.0 mmol/L 04/18/2025 6:40 AM EDT [facility] %HBO2-Line Draw 61.4 40.0 - 70.0 % 04/18/2025 6:40 AM EDT [facility] Carboxyhgb-Kaur e Draw 1.1 % 04/18/2025 6:40 AM EDT [facility] Comment: CARBOXYHEMOGLOBIN (CO) REFERENCE RANGES: Non-Smokers: <2 % Smokers: <8 % TOXIC: >20 % Methemoglobin- Line Draw 0.8 0.0 - 1.5 % 04/18/2025 6:40 AM EDT [facility] Reduced Hemoglobin-Kaur e Draw 36.8(H) 0.0 - 5.0 % 04/18/2025 6:40 AM EDT [facility] Venous, Line Draw 04/18/2025 6:03 AM EDT 04/18/2025 6:36 AM EDT Narrative [facility] - 04/18/2025 6:40 AM EDT Specimen is beyond 15 minutes from time of collection. Results may be compromised. Review results critically. us Ludin Jose MD LAB BLOOD ORDERABLES Final Resul t [facility] [address] * (ABNORMAL) Renal Function Panel w/EGFR (04/18/2025 6:03 AM EDT) Sodium 138 133 - 146 mmol/L 04/18/2025 8:09 AM EDT [facility] Potassium 3.3(L) 3.5 - 5.3 mmol/L 04/18/2025 8:09 AM EDT [facility] Chloride 104 98 - 110 mmol/L 04/18/2025 8:09 AM EDT [facility] CO2 26 21 - 33 mmol/L 04/18/2025 8:09 AM EDT [facility] Comment:High lactate dehydro genase concentrations in patient samples may cause falsely increased bicarbonate results. If markedly elevated LDH is observed or suspected, please assess results in conjunction with patient`s clinical presentation. In cases of discrepant results, consider evaluating CO2 in with a blood gas order. Anion Gap 8 3 - 16 mmol/L 04/18/2025 8:09 AM EDT [facility] BUN 12 7 - 25 mg/dL 04/18/2025 8:09 AM EDT [facility] Creatinine 0.77 0.60 - 1.30 mg/dL 04/18/2025 8:09 AM EDT [facility] Glucose 89 70 - 100 mg/dL 04/18/2025 8:09 AM EDT [facility] Calcium 9.0 8.6 - 10.3 mg/dL 04/18/2025 8:09 AM EDT [facility] Phosphorus 3.8 2.1 - 4.7 mg/dL 04/18/2025 8:09 AM EDT [facility] Albumin 3.8 3.5 - 5.7 g/dL 04/18/2025 8:09 AM EDT [facility] Osmolality, Calculated 285 278 - 305 mOsm/kg 04/18/2025 8:09 AM EDT [facility] EGFR >90 04/18/2025 8:09 AM EDT [facility] Comment: As of 2021, the [...] BLOOD ORDERABLES Final Resul t [facility] [address] * (ABNORMAL) TEG-Standard Global Hemostasis (Rapid TEG with Heparin Effect, Contains a Baseline TEG) (04/18/2025 6:03 AM EDT) [facility] Citrated Kaolin Reaction Time (TEGHEPARINASE) 4.1(L) 4.6 - 9.1 minutes 04/18/2025 7:21 AM EDT [facility] Citrated Rapid Teg Maximum Amplitude (TEGHEPARINASE) 55.2 52.0 - 70.0 mm 04/18/2025 7:21 AM EDT [facility] Citrated Functional Fibrinogen Maximum Amplitude (TEGHEPARINASE) 17.2 15.0 - 32.0 mm 04/18/2025 7:21 AM EDT [facility] Citrated Kaolin W/Heparinase Reaction Time (TEGHEPARINASE) 4.2(L) 4.3 - 8.3 minutes 04/18/2025 7:21 AM EDT [facility] Citrated Kaolin K-Time (TEGHEPARINASE) 1.3(A) 0.8 - 2.1 minutes 04/18/2025 7:21 AM EDT [facility] Citrated Kaolin Angle (TEGHEPARINASE) 73.6(A) 63.0 - 78.0 degrees 04/18/2025 7:21 AM EDT [facility] Citrated Kaolin Maximum Amplitude (TEGHEPARINASE) 56.4 52.0 - 69.0 mm 04/18/2025 7:21 AM EDT [facility] Citrated Functional Fibrinogen- Fibrinogen Level (TEGHEPARINASE) 313.9 278.0 - 581.0 mg/dL 04/18/2025 7:21 AM EDT [facility] Whole Blood (Citrate) 04/18/2025 6:03 AM EDT 04/18/2025 6:45 AM EDT Ludin Jose MD LAB BLOOD ORDERABLES Final Resul t [facility] [address] [facility]. [place], [place] [address] * Protime-INR (04/18/2025 6:03 AM EDT) Protime 15.1 12.1 - 15.1 seconds 04/18/2025 7:07 AM EDT [facility] INR 1.1 0.9 - 1.1 04/18/2025 7:07 AM EDT [facility] Comment: RECOMMENDED THERAPEUTIC RANGES USING INR : Stable oral anticoagulant therapy: 2.0 - 3.0 Mechanical prosthetic heart valve: 2.5 - 3.5 Recurrent acute myocardial infarction: 2.5 - 3.5 Plasma 04/18/2025 6:03 AM EDT 04/18/2025 6:45 AM EDT us Ludin Jose MD LAB BLOOD ORDERABLES Final Resul t Performing Organization Address City/[facility]/ZIP Co de Phone Number [facility] [address] [facility]. [address] * Magnesium (04/18/2025 6:03 AM EDT) Magnesium 2.2 1.5 - 2.5 mg/dL 04/18/2025 8:09 AM EDT [facility] Plasma 04/18/2025 6:03 AM EDT 04/18/2025 6:45 AM EDT us Ludin Jose MD LAB BLOOD ORDERABLES Final Resul t Performing Organization Address City/[facility]/ZIP Co de Phone Number [facility] [address] [facility]. [address] * HIV 1+2 Antibody/Antigen with Reflex (04/18/2025 6:03 AM EDT) HIV 1+2 AB/AGN Nonreactive Nonreactive 04/18/2025 8:32 AM EDT [facility] Serum 04/18/2025 6:03 AM EDT 04/18/2025 6:45 AM EDT Narrative [facility] - 04/18/2025 8:32 AM EDT \HIVRNR us Ludin Jose MD LAB BLOOD ORDERABLES Final Resul t Performing Organization Address [facility] Co de Phone Number [facility] [address] * Hepatitis C RNA, Quant Reflex to Genotyp (04/18/2025 6:03 AM EDT) International Units Not Detected IU/mL 04/21/2025 11:40 AM EDT [facility] Comment:Test methodology for HCV RNA quantification is an FDA-approved nucleic acid amplification assay. The Lower Limit of Quantitation (LLOQ) is 15 IU/mL. The linear range of the assay is 15-100,000,000 IU/mL. The Limit of Detection (LoD) is 12.0 IU/mL for EDTA plasma. The reference range is Not Detected. IU log10 See Note log 10 IU/mL 04/21/2025 11:40 AM EDT [facility] Comment:HCV RNA not detected . Plasma 04/18/2025 6:03 AM EDT 04/18/2025 7:58 AM EDT Ludin Jose MD LAB BLOOD ORDERABLES Final Resul t Performing Organization Address [facility] de Phone Number [facility] [address] [facility]. [address] * Hepatitis B Core Antibody (04/18/2025 6:03 AM EDT) Hep B Core Total Ab Nonreactive Nonreactive 04/18/2025 8:33 AM EDT [facility] Comment:Health Department no tified in accordance with reportable infectious disease guidelines. Serum 04/18/2025 6:03 AM EDT 04/18/2025 6:45 AM EDT Narrative [facility] - 04/18/2025 8:33 AM EDT A nonreactive final interpretation indicates that anti-HBc antibodies were not detected in the sample; it is possible that the individual is not infected with HBV. Ludin Jose MD LAB BLOOD ORDERABLES Final Resul t Performing Organization Address City/[facility] Co de Phone Number [facility] [address] [facility]. [address] * (ABNORMAL) Hepatitis C Antibody (04/18/2025 6:03 AM EDT) HCV Ab Reactive( A) Nonreactive 04/18/2025 8:42 AM EDT [facility] Comment: Health Department notified in accordance with reportable infectious disease guidelines. Health Department notified in accordance with reportable infectious disease guidelines. Serum 04/18/2025 6:03 AM EDT 04/18/2025 6:45 AM EDT [facility] - 04/18/2025 8:42 AM EDT Presumptive evidence of antibodies to HCV: follow CDC recommendations for supplemental testing. us Ludin Jose MD LAB BLOOD ORDERABLES Final Resul t [facility] [address] [facility]. [address] * Hepatitis B Surface Antibody, Quantitati (04/18/2025 6:03 AM EDT) HBSAB NUMBER 5.17 0.00 - 9.99 mIU/mL 04/18/2025 8:46 AM EDT [facility] Hep B S Ab Nonreactive Nonreactive 04/18/2025 8:46 AM EDT [facility] Serum 04/18/2025 6:03 AM EDT 04/18/2025 6:45 AM EDT [facility] - 04/18/2025 8:46 AM EDT Individual is considered not immune to HBV infection. us Ludin Jose MD LAB BLOOD ORDERABLES Final Resul t [facility] [address] [facility]. [address] * Hepatitis B surface antigen (04/18/2025 6:03 AM EDT) Hep B Surface Ag Nonreactive Nonreactive 04/18/2025 8:37 AM EDT [facility] Comment:Health Department no tified in accordance with reportable infectious disease guidelines. Serum 04/18/2025 6:03 AM EDT 04/18/2025 6:45 AM EDT Narrative [facility] - 04/18/2025 8:37 AM EDT Specimen is considered negative for HBsAg. us Ludin Jose MD LAB BLOOD ORDERABLES Final Resul t Performing Organization Address City/[facility]/ZIP Co de Phone Number [facility] [address] * (ABNORMAL) Hepatic Function Panel (04/18/2025 6:03 AM EDT) Total Bilirubin 1.5 0.0 - 1.5 mg/dL 04/18/2025 8:09 AM EDT [facility] Bilirubin, Direct 0.53(H) 0.00 - 0.40 mg/dL 04/18/2025 8:09 AM EDT [facility] AST 37 13 - 39 U/L 04/18/2025 8:09 AM EDT [facility] ALT 25 7 - 52 U/L 04/18/2025 8:09 AM EDT [facility] Alkaline Phosphatase 118 36 - 125 U/L 04/18/2025 8:09 AM EDT [facility] Total Protein 6.7 6.4 - 8.9 g/dL 04/18/2025 8:09 AM EDT [facility] Albumin 3.8 3.5 - 5.7 g/dL 04/18/2025 8:09 AM EDT [facility] Bilirubin, Indirect 0.97 0.00 - 1.10 mg/dL 04/18/2025 8:09 AM EDT [facility] Plasma 04/18/2025 6:03 AM EDT 04/18/2025 6:45 AM EDT us Ludin Jose MD LAB BLOOD ORDERABLES Final Resul t [facility] [address] [facility]. [address] * Fibrinogen (04/18/2025 6:03 AM EDT) Fibrinogen 283 218 - 406 mg/dL 04/18/2025 7:08 AM EDT [facility] Plasma 04/18/2025 6:03 AM EDT 04/18/2025 6:45 AM EDT Ludin Jose MD LAB BLOOD ORDERABLES Final Resul t [facility] [address] [place] [address], [facility] * (ABNORMAL) Differential (04/18/2025 6:03 AM EDT) Neutrophils Relative 38.8(L) 40.0 - 80.0 % 04/18/2025 6:58 AM EDT [facility] Lymphocytes Relative 28.3 15.0 - 45.0 % 04/18/2025 6:58 AM EDT [facility] Monocytes Relative 14.6(H) 0.0 - 12.0 % 04/18/2025 6:58 AM EDT [facility] Eosinophils Relative 17.3(H) 0.0 - 8.0 % 04/18/2025 6:58 AM EDT [facility] Basophils Relative 1.0 0.0 - 1.0 % 04/18/2025 6:58 AM EDT [facility] nRBC 0 0 - 0 /100 WBC 04/18/2025 6:58 AM EDT [facility] Neutrophils Absolute 1,436(L) 1,520 - 8,640 /uL 04/18/2025 6:58 AM EDT [facility] Lymphocytes Absolute 1,047 570 - 4,860 /uL 04/18/2025 6:58 AM EDT [facility] Monocytes Absolute 540 0 - 1,296 /uL 04/18/2025 6:58 AM EDT [facility] Eosinophils Absolute 640 0 - 864 /uL 04/18/2025 6:58 AM EDT [facility] Basophils Absolute 37 0 - 108 /uL 04/18/2025 6:58 AM EDT [facility] Whole Blood 04/18/2025 6:03 AM EDT 04/18/2025 6:45 AM EDT Ludin Jose MD LAB BLOOD ORDERABLES Final Resul t [facility] [address] * (ABNORMAL) CBC (04/18/2025 6:03 AM EDT) WBC 3.7(L) 3.8 - 10.8 10E3/uL 04/18/2025 6:58 AM EDT [facility] RBC 3.74(L) 3.80 - 5.10 10E6/uL 04/18/2025 6:58 AM EDT [facility] Hemoglobin 11.7 11.7 - 15.5 g/dL 04/18/2025 6:58 AM EDT [facility] Hematocrit 34.5(L) 35.0 - 45.0 % 04/18/2025 6:58 AM EDT [facility] MCV 92.4 80.0 - 100.0 fL 04/18/2025 6:58 AM EDT [facility] MCH 31.3 27.0 - 33.0 pg 04/18/2025 6:58 AM EDT [facility] MCHC 33.9 32.0 - 36.0 g/dL 04/18/2025 6:58 AM EDT [facility] RDW 14.8 11.0 - 15.0 % 04/18/2025 6:58 AM EDT [facility] Platelets 100(L) 140 - 400 10E3/uL 04/18/2025 6:58 AM EDT [facility] MPV 9.5 7.5 - 11.5 fL 04/18/2025 6:58 AM EDT [facility] Whole Blood 04/18/2025 6:03 AM EDT 04/18/2025 6:45 AM EDT Ludin Jose MD LAB BLOOD ORDERABLES Final Resul t [facility] [address] * APTT, No Anticoagulant (04/18/2025 6:03 AM EDT) aPTT 28.7 25.5 - 35.0 seconds 04/18/2025 7:08 AM EDT [facility] Plasma 04/18/2025 6:03 AM EDT 04/18/2025 6:45 AM EDT us Ludin Jose MD LAB BLOOD ORDERABLES Final Resul t Performing Organization Address City/[facility]/ZIP Co de Phone Number [facility] [address] [facility]. [address] * hCG, quantitative, (04/18/2025 6:03 AM EDT) hCG Quant 0.00 mIU/mL 04/18/2025 8:51 AM EDT [facility] Comment: Approximate Approximate Gestational Age hCG Range (Weeks) mIU/mL 0.2-1 5-50 1-2 50-500 2-3 100-5000 3-4 [id number] 4-5 1000-79529 5-6 [id number] 6-8 [id number] 8-12 [id number] This assay is not approved for, and should not be used to diagnose any condition unrelated to . A Negative hCG result is <5.0 mIU/mL. Plasma 04/18/2025 6:03 AM EDT 04/18/2025 6:45 AM EDT Narrative [facility] - 04/18/2025 8:51 AM EDT The testing method for beta-HCG is a chemiluminescent immunoassay manufactured by [employer] Concentrations of beta-HCG obtained by different assay methods or kits may vary and cannot be used interchangeably. Beta-HCG results cannot be interpreted as absolute evidence of the presence or absence of malignant disease. us Ludin Jose MD LAB BLOOD ORDERABLES Final Resul t Performing Organization Address City/[facility]/ZIP Co de Phone Number [facility] [address] [place] [facility]. [address] * Surgical Pathology Exam (04/18/2025 12:00 AM EDT) 04/18/2025 04/19/2025 Narrative [facility] - 04/18/2025 12:00 AM EDT CASE: [id number] PATIENT: MINDY WADE Clinical History: Living donor liver transplant Pre-Operative Diagnosis: Pre-transplant evaluation for chronic liver disease Post-Operative Diagnosis: Pre-transplant evaluation for chronic liver disease Specimen(s) Submitted: A. [place] gallbladder ; B. common bile duct ; C. [place] liver CPT Code(s): 43686 X 1; 11477 X 1; 63196 X 1; 58757 X 5; 32297 X 1 Additional Information: FINAL DIAGNOSIS: A. Gallbladder, [place], resection: - No significant pathologic change. - Negative for dysplasia or malignancy. B. Common bile duct, excision: - Biliary epithelium with mild reactive change. - Negative for malignancy. C. 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 - Negative for neoplasm. Dave Wilkinson MD (Resident) Gross Description: A. Received in formalin, labeled with the patient's name Mindy Wade and A. [place] gallbladder is a 12.0 x 4.5 x [...] of the gallbladder is eisenberg-yellow and velvety. [employer] sections are submitted in cassettes [id number]. (Dave Wilkinson MD (Resident)/ab) B. Received in formalin, labeled with the patient's name Mindy Wade and B. Common bile duct is a piece of eisenberg-white fibrous luminal structure that measures 1.5 cm in length x 0.6 cm in diameter and attached cauterized soft tissue. The specimen is trisected longitudinally and entirely submitted in cassette [id number]. (Dave Wilkinson MD (Resident)/ab) C. Received in formalin, labeled with the patient's name Bill Wade. [place] liver is a 1274-gram, 18.5 x 16.0 [...] x 1.0 cm and appears grossly well-circumscribed. [employer] sections are submitted in cassettes [id number] as follows: C1: Hilar margin. C2-C4: [place] Machine section of the right lobe. C5-C8: [place] section of the left lobe, with C5 containing strategic partnership representative section of the well-circumscribed and subcapsular [...] Pathologist signing this report is located at [facility], [address] [place] [address], Critical access hospital [phone], CLIA ID: [id number] Ludin Jose MD PATHOLOGY/CYTOLOGY ORDERABLES Fi nal Result [facility] documented in this encounter Visit Diagnoses Not on filedocumented in this encounter Administered Medications Inactive Administered Medications - up to 3 most recent administrations Medication Order MAR Action Action Date Dose Rate Site acetaminophen (TYLENOL) tablet 975 mg 975 mg, Oral, Every 8 hours, First dose on Fri04/27/25 at 1430 Given 05/03/2025 1:16 PM EST 975 mg Given 05/03/2025 5:30 AM EST 975 mg Given 05/02/2025 10:19 PM EST 975 mg albuterol ([id number]) 90 mcg/actuation inhaler 2 puff 2 puff, [...] patient is non-communicative (CPOT 6-8), Starting on 11/8/25 at 0949, If on IV and PO [...] 0.9 % irrigation As needed, Starting on Fri04/23/25 at 0957, Intra-op Given 04/23/2025 10:33 AM EDT 2,000 mLs Given 04/23/2025 9:57 AM EDT 3,000 mLs sodium chloride 0.9 [...] mL/hr 0855 (New Bag - Provider: Jc Terrazas, KONSTANTIN)0930 (New Bag - Provider: Jc Terrazas, RN) albumin human 25% (COMPLETED) 50 mL, [...] 0837 (Given - Provider: Julianne Costello RN) diphenhydrAMINE (BENADRYL) capsule 25 mg (COMPLETED) 25 [...] Canseco RN) 0807 (Not Given - Provider: Jluianne Costello RN - Reason: Order parameters not [...] Makenzie Canseco RN)1810 (Patch Applied - Provider: Makenzei Canseco RN) 0549 (Patch Removed - Provider: [...] 2100 0856 (Given - Provider: Jc Terrazas RN)214 (Given - Provider: Tisha Rhoades RN) 0843 (Given - Provider: Makenzie Canseco RN) scopolamine (TRANSDERM-SCOP) (1 mg over 3 days) 1 patch 1 patch, Transdermal, Every 72 hours, First dose on Fri04/22/25 at 2000, On hold since 04/23/2025 at 0729 until manually unheld 1999 (Automatically Held - Provider: Julius Becerra MD) 2022 (Unheld by provider - Provider: Automatic Discharge Provider) senna-docusate (SENNA-S) 8.6-50 mg per tablet 1 tablet 1 tablet, Oral, 2 times daily, First dose on Fri04/21/25 at 0900 0856 (Given - Provider: Jc Terrazas RN)214 (Given - Provider: Tisah Rhoades RN) 0843 (Given - Provider: Makenzie Canseco RN)2112 (Given - Provider: Tisha Rhoades, KONSTANTIN) 0837 (Given - Provider: Julianne Costello, KONSTANTIN) [...] Terrazas RN) 0602 (Given - Provider: Tisha Rhoades, KONSTANTIN) tacrolimus (PROGRAF) capsule 2 mg 2 mg, [...] Makenzie Canseco RN)211 (Given - Provider: Tisha Rhoades, KONSTANTIN) 0837 (Given - Provider: Julianne Costello RN) [...] 12 hours, Normal Saline 0.9% run at [facility] only during administration of blood products. 1056 (New Bag - Prov ider: Julianne Costelol RN) PRN Medication Order 05/01/2025 05/02/2025 05/03/2025 albuterol (ILSDSTEFL-[id number] TOLIN) 90 mcg/actuation inhaler 2 puff 2 [...] Provider: Tisha Rhoades RN)1120 (Given - Provider: Julianne Costello, KONSTANTIN)1550 (Given - Provider: Julianne Costello, KONSTANTIN) phenoL (SORE THROAT) 1.4 % spray SprA [...] mg (COMPLETED) 60 mg, Intravenous, Once, On Janiya 04/21/25 [...] documented as of this encounter Care Teams Saw Maker Relationship Specialty Start Date End Date Geoff Graves DO [address] [place] [address] PCP - General 02/01/25 Farida Ortega, HARLEEN [address] [place] [address] Referring Physician Gastroenterology 09/02/23 documented as of this encounter
--- OUTSIDE RECORDS SUMMARY | 2025-04-23 08:18 | XMS_ITS | Encounter Summary ---
Author Organization [facility] Address [address] [place] [address] Care Team Providers Care Quality Control Supervisor Name Role Phone Yonatan Graves DO Primary Care Provider Farida Ortega IRRIGATION FOREMAN Unavailable [phone] Source Comments This information has been disclosed [...] release of HIV test results or diagnoses. [id number] Health Reason for Visit * Auth/Cert (Routine) Specialty Diagnoses / Procedures Referred By Roselyn t Referred To Contact Diagnoses Pre-transplant evaluation for chronic liver disease [Z01.818] Procedures LIVING DONOR TRANSPLANT RECIPIENT [facility] [address] [place] [address] Phone: tel: Referral ID Status Reason Start Date Expiration Date Visits Re quested Visits Authorized [id number] 1 1 Encounter Details Date Type Department Care Team (Late st Contact Info) Description 04/23/2025 9:18 AM EDT Anesthesia Event [facility] [address] [place] [address] Catracho Hui MD [address] [place] [id number] Anesthesia Record Procedure Summary Procedure Name Responsible Anesthesiologist Anesthesia Start Time Anesthesia Stop Time EMERGENCYEXPLORATORY LAP, REVISION OF JJ ANASTOMSIS, GASTRIC LAVAGE (Abdomen) Catracho Hui MD 04/23/25 0918 04/23/25 112 9 Events Date Time Event Comment 04/23/2025 0918 An Start 0921 An Start Data 0922 An Induction 0943 Time Out 0947 Procedure Start 0950 Quick Note OG replaced wit h NG 1109 An Emergence 1116 an stop data 1117 Transport to ICU 1129 An Stop Meds Name Total vecuronium (NORCURON) injection 8 mg EPINEPHrine (ADRENALIN) 10 mg in sodium chloride 0.9 % 250 mL infusion 64 mcg FentaNYL (SUBLIMAZE) 2500 mcg (10 mcg/mL ) in NSS 250 mL IV infusion 109.17 mcg propofol (DIPRIVAN) infusion 10 mg/mL 29 6.72 mg ceFAZolin (ANCEF) injection 1 g 2 g calcium chloride 10% injection 2 g neostigmine (PROSTIGMINE) 1 mg/mL inject ion 5 mg glycopyrrolate (ROBINUL) 0.2 mg/mL injec tion 0.8 mg electrolyte-r (pH 7.4)(NORMOSOL-R pH 7.4 ) IV soln 1000 mL 1,000 mL electrolyte-r (pH 7.4)(NORMOSOL-R pH 7.4 ) IV soln 1000 mL 850 mL * Agents Name N2O O2 N2O Air Sevoflurane * Blood Name Total PRBC 350 mL Lines, Drains, and Airways Type Details Placement Removal Drain 04/18/25; 1754; osto my bag; sub hepatic #1; Abdomen; Right, Superior; 19 Fr. 04/18/25 1754 by Mary Fink RN Drain 04/18/25; 1754; bibi r #2; Abdomen; Right, Superior; 19 Fr. 04/18/25 1754 by Mary Fink RN PICC Double Lumen 04/21/25; 0839; 01/23 07/18; [id number]; Yes; 4; 35 cm; Right; Brachial; Chlorhexidine; Injectable; Ultrasound Assisted, Mircrointroduction Method, Modified [place] Technique, Tip Guidance Assisted; Tolerated well; Blood return, Tip Positioning System, Tip Locating System, Ultrasound 04/21/25 0839 by Chava Govea RN Incision 04/23/25; 1015; Abdo men; incisional wound vac 04/23/25 1015 by Viktor Kennedy, KONSTANTIN Incision 04/18/25; 1756; Abdo men; N/A; sergio, gauze and tegaderm; 04/23/25; 1016 04/18/25 1756 by Mary Fink RN 04/23/25 1016 by Viktor Kennedy RN ETT 04/23/25; 7.5 mm; Cu ffed; 1; 23 cm; Lips; Commercial tube ye; Breath Sounds Confirmed; Per order 04/23/25 0000 by Celio Espinosa, OUTSIDE UPHOLSTERER 04/24/25 0838 by Elia Kim, LISA Rectal Pouch 04/23/25; Per patien t/family request 04/23/25 0000 by Gayle Stout RN 04/24/25 1145 by Gayle Stout RN Urethral Catheter 04/23/25; 0130; Temp erature probe; 16 Fr.; Tolerated well 04/23/25 0130 by Ammon Case RN 04/25/25 1200 by Bita Lo RN Arterial Line 04/23/25; 0453 (crea alea via procedure documentation); 18 (G); Right; Femoral; Chlorhexidine; 4 04/23/25 0453 by Any Sarabia MD 04/25/25 1245 by Bita Lo RN CVC Double Lumen 04/23/25; 0516 (crea alea via procedure documentation); ICU; Sterile; Left; Femoral; 9; yes 04/23/25 0516 by Kerrie Lang MD 04/25/25 0800 by Eloisa Snow RN documented in this encounter Social History Tobacco Use Types Packs/Day Years Used Date Smoking Tobacco: Former Cigarettes 0.3 1.2 0 07/22/2014 - 07/22/2015 Smokeless Tobacco: Never Alcohol Use Standard Drinks/Week Comments Not Currently 0 (1 standard drink = 0.6 oz pur e alcohol) [facility] Utilities Answer Date Recorded In the past 12 months has [employer], gas, oil, or water [employer] threatened to shut off services in your [...] any time in the past [address] [facility], were you homeless or living in a intermediate (including now)? No 04/19/2025 Yearly Questionnaire Answer [...] Case RN Peripheral Vascular (WDL) X 04/23/2025 8:00 AM EDT Ammon Case RN * Question Answer Date of Assessment Author Anti-Embolism Devices Bilateral;Sequenti al compression devices, below knee 04/23/2025 8:00 AM EDT Ammon Case RN documented as of this encounter Progress Notes * Catracho Hui MD - 04/23/2025 3:24 PM EDT Anesthesia Post Note Patient: Mindy Wade Procedure(s) Performed: Procedure(s): EMERGENCYEXPLORATORY LAP, REVISION OF JJ ANASTOMSIS, GASTRIC LAVAGE Anesthesia type: general endotracheal Patient location: ICU Airway: ETT Post pain: Adequate analgesia Nausea / Vomiting: Absent Post-operative Hydration Status: Adequate Post assessment: no apparent anesthetic complications and tolerated procedure well Last Vitals: Vitals: 04/23/25 1330 04/23/25 1400 04/23/25 1430 04/23/25 1500 BP: 113/81 108/78 117/89 BP Location: Patient Position: BP Cuff Size: Pulse: 81 84 81 99 Resp: 9 8 (!) 7 10 Temp: TempSrc: SpO2: 95% 97% 94% 95% Weight: Height: Last Temperature: 97.1 ??F (36.2 ??C) (04/23/2025 12:00 PM) Post vital signs: stable Level of consciousness: sedated Complications: There were no known notable events for this encounter. documented in this encounter H&P Notes * Catracho Hui MD - 04/23/2025 8:30 AM EDT Images from the original note were not included. [facility] DEPARTMENT OF ANESTHESIOLOGY PRE-PROCEDURAL EVALUATION Mindy Wade is a 35 y.o. year old female presenting for: Procedure(s): EMERGENCY LIVER TXP COME BACK Surgeon: Alejandra Wilson MD Chief Complaint Liver transplant recipient ([facility]); S/P liver transplant ([facility]); End * Review of Systems Anesthesia Evaluation Patient summary reviewed and [employer] ARCHITECT/PAT note reviewed. I have reviewed the History [...] baseline or with provocation, shows a very fwklswtujs-zk-gyso atrial level shunt. There is a shunt [...] of healed granulomatous disease. GI/Hepatic/Renal: (+) liver disease (s/p transplant 04/18). Hepatitis. (-) renal disease. Comments: EGD 07/28/24: - Small (< 5 mm) esophageal varices with no bleeding and no stigmata of recent bleeding. - Gastric antral vascular ectasia without bleeding. - A single lesion diagnostic of aberrant pancreas was found in the stomach. - Normal duodenal bulb and second portion of the duodenum. - No specimens collected. ESLD 07/25 EtOH use & HCV Home regimen: carvedilol, [...] not requiring lactulose or rifaximin. Endo/Other: (+) anemia, thrombocytopenia and DVT. (-) diabetes mellitus. Past 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 [...] 04/18/2025 Procedure: LIVING DONOR LIVER TRANSPLANT; Surgeon: Jarrod Goode MD; Location: OR; Service: Transplant; Laterality: N/A; [...] Strain: Patient Declined (08/05/2023) Received from [facility] Overall Financial Resource Strain (CARDIA) Difficulty of Paying Living Expenses: Patient declined Food Insecurity: No Food Insecurity (04/19/2025) Hunger Vital Sign Worried About Running Out of Food in the Last Year: Never true Ran Out of Food in the Last Year: Never true Transportation Needs: No Transportation Needs (04/19/2025) PRAPARE - Transportation Lack of Transportation (Medical): No Lack of Transportation (Non-Medical): No Physical Activity: Inactive (08/05/2023) Received from [facility] Exercise Vital Sign Days of Exercise per Week: 0 days Minutes of Exercise per Session: 0 min Stress: Stress Concern Present (08/05/2023) Received from [facility] [place] [facility] [employer] - Occupational Stress Questionnaire Feeling of Stress : Rather much Social Connections: Not At Risk (08/05/2023) Received from [facility] Family and Community Support If for any reason you need help with day-to-day activities such as bathing, preparing meals, shopping, managing finances, etc., do you get the help you need?: I don't need any help How often do you feel lonely or isolated from those around you?: Sometimes Intimate Partner Violence: Not At Risk (04/18/2025) Humiliation, Afraid, Rape, and Kick questionnaire Fear [...] times a day. naloxone (NARCAN) 4 mg/actuation [place] Apply 1 spray in one nostril if [...] tablet (450 mg total) by mouth daily. Inpatient Meds: Scheduled: acetaminophen 975 mg Oral Q8H [Held by [...] BID valGANciclovir 450 mg Oral Daily 09 Continuous: fentanyl (SUBLIMAZE) IV infusion 50 mcg/hr (04/23/25 0320) propofol 20 mcg/kg/min (04/23/25316) sodium chloride 0.9 % sodium chloride 0.9 % PRN: albuterol, dextrose 10% in water OR dextrose 10% in water, fentanyl (SUBLIMAZE) IV infusion AND fentaNYL, HYDROmorphone OR HYDROmorphone, ipratropium-albuteroL, ipratropium-albuteroL, norepinephrine, ondansetron, oxyCODONE OR oxyCODONE, phenoL Vital Signs Wt Readings from Last 3 Encounters: 04/22/25 166 lb 6.4 oz (75.5 kg) 04/11/25 157 lb 12.8 oz (71.6 kg) 02/07/25 152 lb (68.9 kg) Ht Readings from Last 3 Encounters: 04/23/25 5' 5 (1.651 m) 04/11/25 5' 5 (1.651 m) 01/10/25 5' 5 (1.651 m) Temp Readings from Last 3 Encounters: 04/23/25 97.1 ??F (36.2 ??C) (Oral) 04/11/25 98.3 ??F (36.8 ??C) (Oral) 02/07/25 98.2 ??F (36.8 ??C) (Oral) BP Readings from Last 3 Encounters: 04/23/25 (!) 81/60 04/11/25 109/61 02/07/25 111/61 Pulse Readings from Last 3 Encounters: 04/23/25 116 04/11/25 84 02/07/25 71 SpO2 Readings from Last 3 Encounters: 04/23/25 95% 04/11/25 98% 02/07/25 100% Physical Exam Airway: Mallampati: II Mouth Opening: >2 FB TM distance: > = 3 FB Neck ROM: full Dental: Pulmonary: - normal exam Cardiovascular: - normal exam Rhythm: regular Rate: normal Neuro/Musculoskeletal/Psych: - normal neurological exam. Abdominal: - normal exam Current OB Status: Other Findings: Laboratory Data Lab Results Component Value Date WBC 11.4 (H) 04/23/2025 HGB 6.6 (L) 04/23/2025 HCT 30.0 (L) 04/23/2025 HCT 28.4 (L) 04/23/2025 MCV 85.4 04/23/2025 PLT 56 (L) 04/23/2025 No results found for: ABORH Lab Results Component Value Date GLUCOSE 152 (H) 04/23/2025 BUN 39 (H) 04/23/2025 CO2 23 04/23/2025 CREATININE 1.32 (H) 04/23/2025 K 4.6 04/23/2025 NA 137 04/23/2025 CL 109 04/23/2025 CALCIUM 8.1 (L) 04/23/2025 ALBUMIN 2.2 (L) 04/23/2025 ALBUMIN 2.2 (L) 04/23/2025 PROT 3.4 (L) 04/23/2025 ALKPHOS 63 04/23/2025 ALT 81 (H) 04/23/2025 AST 59 (H) 04/23/2025 BILITOT 1.4 04/23/2025 Lab Results Component Value Date INR 1.4 (H) 04/23/2025 Lab Results Component Value Date PREGTESTUR Negative 04/18/2025 HCGQUANT 0.00 04/18/2025 Anesthesia Plan ASA 4 Female and current non-smoker Anesthesia Type: general endotracheal. PONV Risk Factors: female, current non-smoker Induction: Intravenous induction. Additional comments: GETA, PIV x several with MAC and [place]. Will pre-treat with albuterol and anxiolytic. Radial [...] Plan discussed with attending and resident. [1] No Known Drug Allergies or Adverse Reactions documented in this encounter Plan of Treatment Not on file documented as of this encounter Visit Diagnoses * Transfer of Care - Demi Suggs WATERMASTER - 04/23/2025 11:29 AM EDT Anesthesia Transfer of Care Note Patient: Mindy Wade Procedure(s) Performed: Procedure(s): EMERGENCYEXPLORATORY LAP, REVISION OF JJ ANASTOMSIS, GASTRIC LAVAGE Patient location: ICU Anesthesia type: general endotracheal Airway Device on Arrival to PACU/ICU: Endotracheal Tube IV Access: Peripheral Monitors Recommended to be Used During PACU/ICU: Arterial Line and Standard Monitors Outstanding Issues to Address: None Level of Consciousness: sedated Post vital signs: Vitals: 04/23/25 0915 BP: Pulse: 87 Resp: 9 Temp: 97 ??F (36.1 ??C) SpO2: 98% Complications: No notable events documented. Date 04/22/25699 - 04/23/2559 04/23/25699 - 04/24/25 0659 Shift 6364-4454 6085-2501 2052-1884 24 Hour Total 5309-8133 0317-1545 6278-6127 24 Hour Total INTAKE P.O. 570 415 3796 P.O. 570 473 2647 I.V.(mL/kg) 1855.8(24.6) 1855.8(24.6) Volume (mL) Epinephrine 5.8 5.8 Volume (mL) (electrolyte-R (pH 7.4) (NORMOSOL-R pH 7.4) IV solution) 1000 1000 Volume (mL) (electrolyte-R (pH 7.4) (NORMOSOL-R pH 7.4) IV solution) 850 850 Blood 518 052 3486 3479 RBC Units 2 x 2 x Volume (Transfuse RBC Transfusion Rate: Per dept routine) 350 350 Volume (Transfuse RBC Transfusion Rate: Per dept routine) 210 210 Volume (Transfuse RBC Transfusion Rate: Per dept routine) 310 310 PRBC - Volume (Massive Transfusion Protocol (MTP) Transfusion Rate: Per dept routine) 1401 1401 Cryo - Volume (Massive Transfusion Protocol (MTP) Transfusion Rate: Per dept routine) 365 365 Platelets - Volume (Massive Transfusion Protocol (MTP) Transfusion Rate: Per dept routine) 468 468 FFP - Volume (Massive Transfusion Protocol (MTP) Transfusion Rate: Per dept routine) 585 585 PRBC - Units (Massive Transfusion Protocol (MTP) Transfusion Rate: Per dept routine) 5 x 5 x FFP - Units (Massive Transfusion Protocol (MTP) Transfusion Rate: Per dept routine) 2 x 2 x Platelets - Units (Massive Transfusion Protocol (MTP) Transfusion Rate: Per dept routine) 1 x 1 x Cryo - Units (Massive Transfusion Protocol (MTP) Transfusion Rate: Per dept routine) 4 x 4 x Shift Total(mL/kg) 120(1.6) 960(12.7) 210(2.8) 1290(17.1) 5334.8(70.7) 5334.8(70.7) OUTPUT Urine(mL/kg/hr) 420(0.7) 150(0.2) 570(0.3) 450 450 Urine 420 150 570 450 450 Urine Occurrence 5 x 5 x Drains 305 310 200 815 Output (mL) (Drain sub hepatic #1 Abdomen Right;Superior) 165 225 200 590 Output (mL) (Drain hilar #2 Abdomen Right;Superior) 140 85 225 Other 300 300 Other 300 300 Stool 0 0 0 Stool Occurrence 1 x 2 x 1 x 4 x Stool 0 0 0 Shift Total(mL/kg) 725(9.6) 460(6.1) 200(2.6) 1385(18.3) 750(9.9) 750(9.9) Weight (kg) 75.5 75.5 75.5 75.5 75.5 75.5 75.5 75.5 documented in this encounter Administered Medications Inactive Administered Medications - up to 3 most recent administrations Medication Order MAR Action Action Date Dose Rate Site calcium chloride injection Intravenous, PRN - One Step Medication Only, Starting on 04/23/25 at 1004, Anesthesia Intra-op Given 04/23/2025 10:56 AM EDT 1 g Given 04/23/2025 10:04 AM EDT 1 g ceFAZolin (ANCEF) injection Intravenous, PRN - One Step Medication Only, Starting on 04/23/25 at 0947, Anesthesia Intra-op Given 04/23/2025 9:47 AM EDT 2 g electrolyte-R (pH 7.4) (NORMOSOL-R pH 7.4) IV solution Intravenous, Continuous - One Step Medications Only, Starting on 04/23/25 at 0918, Anesthesia Intra-op New Bag 04/23/2025 9:18 AM EDT electrolyte-R (pH 7.4) (NORMOSOL-R pH 7.4) IV solution Intravenous, Continuous - One Step Medications Only, Starting on 04/23/25 at 0928, Anesthesia Intra-op New Bag 04/23/2025 9:28 AM EDT glycopyrrolate (ROBINUL) injection Intravenous, PRN - One Step Medication Only, Starting on 04/23/25 at 1122, Anesthesia Intra-op Given 04/23/2025 11:22 AM EDT 0.8 mg neostigmine methylsulfate (PROSTIGMIN) IV solution Intravenous, PRN - One Step Medication Only, Starting on 04/23/25 at 1122, Anesthesia Intra-op Given 04/23/2025 11:22 AM EDT 5 mg Transfuse RBC Transfusion Rate: Per dept routine STAT, Check Transfusion Rate, Dept routine - , , ED/ICU/step down, [facility] - 300ml/hr , Hematologic malignancy/BMT 300mL/hr , , med/surg - 100mL/hr , New Bag 04/23/2025 10:50 AM EDT vecuronium (NORCURON) injection Intravenous, PRN - One Step Medication Only, Starting on 04/23/25 at 0922, Anesthesia Intra-op Given 04/23/2025 9:22 AM EDT 8 mg documented in this encounter Additional Health Concerns Assessment Noted Time PHQ-9 Depression Total Score: 13 025 2:00 PM EDT documented as of this encounter Care Teams Quality Control Supervisor Relationship Specialty Start Date End Date Yonatan Graves DO [address] [place] [address] PCP - General 02/01/25 Farida Ortega NP [address] [place] [id number] Referring Physician Gastroenterology 09/02/23 documented as of this encounter
--- OUTSIDE RECORDS SUMMARY | 2025-05-10 08:20 | XMS_ITS | Encounter Summary ---
Author Organization [facility] Address [address] [place] [id number] Care Team Providers Care Certified Pharmacist Assistant Name Role Phone Yonatan Graves Joseph LLANES Primary Care Provider Farida Ortega AUTHORIZATION REPRESENTATIVE Unavailable [phone] Cat Benavides RN Unavailable Unava ilable Source [...] release of HIV test results or diagnoses. [id number] Reason for Referral * Physician/STEVEN (Emergency) - Authorized Specialty Diagnoses / Procedures Referred By Contac t Referred To Contact Pain Medicine Diagnoses S/P liver transplant (CMS-HCC) Postoperative pain [facility] Liver Transplant at [address] [address] Phone: tel: fax: Referral ID Status Reason Start Date Expiration Date V isits Requested Visits Authorized [id number] Authorized 05/10/2025 11/06/2025 1 1 Scheduling Instructions For appointments, please call [phone]. Reason for Visit * Reason Comments Liver Transplant Follow-up Encounter Details Date Type Department Care Team ([facility] st Contact Info) Description 05/10/2025 8:20 AM EST Office Visit [facility] Liver Transplant at [facility] [address] [facility] [address] [place] [address] Jose Daniel MD [address] [place] [address] S/P liver transplant (CMS-HCC) (Primary Dx); Immunosuppression (CMS-HCC); Postoperative pain Social History Tobacco Use Types Packs/Day Years Used Date Smoking Tobacco: Former Cigarettes 0.3 1.2 0 07/22/2014 - 07/22/2015 Smokeless Tobacco: Never Tobacco Cessation:Counseling Given: No Alcohol Use Standard Drinks/Week Comments Not Currently 0 (1 standard drink = 0.6 oz pur e alcohol) [facility] Utilities Answer Date Recorded In the past 12 months has th e [employer], gas, oil, or water [employer] threatened to shut off services in your [...] any time in the past 12 m [facility], were you homeless or living in a care home (including now)? No 04/19/2025 Yearly Questionnaire [...] Sign Reading Time Taken Comments Blood Pressure 117/75 05/10/2025 9:10 AM EST Pulse 72 05/10/2025 9:10 AM EST Temperature 36.7 C (98.1 F) 05/10/2025 9:10 AM EST Respiratory Rate 16 05/10/2025 9:10 AM EST Oxygen Saturation 100% 05/10/2025 9:10 AM EST Inhaled Oxygen Concentration 100% 05/10/2025 9 :10 AM EST Weight 71.7 kg (158 lb 1.6 oz) 05/10/2025 9:10 A M EST Height 165.1 cm (5' 5 ) 05/10/2025 9:10 AM EST Body Mass Index 26.31 05/10/2025 9:10 AM EST documented in this encounter Patient Instructions * Patient Instructions* Fermín Ivan MD - 05/10/2025 8:20 AM EST Continue current immunosuppression medications: tacrolimus 2mg in AM and 3mg PM, Cellcept 500mg twice a day, Continue infection prophylaxis medications Decrease oxycodone to every 6 hours Start gabapentin 300mg three times a day Avoid NSAID medications (ibuprofen, naproxen, Aleve, Motrin, Advil) Avoid direct sun exposure Use hat, sun protective clothing, SPF 30 sunscreen Annual Dermatology skin exam due to increased risk of skin cancer with immunosuppression medications Please follow regularly with your primary care provider for all recommended preventative care and immunizations including annual flu shot Next visit in 1 week documented in this encounter Progress Notes * Fermín Ivan MD - 05/10/2025 8:20 AM EST Transplant Hepatology Follow Up HPI: This is a follow up visit for Mindy Wade who is a 35 y.o. 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 She is s/p Harvoni treatment in 2018. Operative course uncomplicated. Post operative complications included small bowel enteroscopy for possible GI bleed (none found), subsequent take back for washout on 04/23/25 due to bleeding from JJ anastomosis. Last volume clot removed, no active bleeding found (see Op Note for full details). NG tube stayed until POD #4 due to ileus. High ascites drain output and bump in LFTs required takeback s/p MRI on 05/01 that showed no biliary dilation, signal loss in RHV 2/2 artifact vs filling defect. Discharged 05/03/25. Immunosuppression was standard. Patient did not receive organ from increased risk donor. Path: cirrhosis, mild septal inflammation and burnt out steatohepatitis; clinical history of HCV and alcoholic liver disease; negative for neoplasm Current immunosuppression is: MMF 500mg BID, tacrolimus 2mg/3mg, prednisone 20mg daily Interval History: Doing OK since discharge. States pain is under control with 15mg q4h oxycodone but does have episodes of sharp, shooting pains in abd. Also describes knot in R groin in area with lines were placed that is causing some pain. Has concerns about her drain still having output but is not sure how muchis coming out daily, and will fluctuate. Having some increased ankle swelling post discharge. Eating well but feels like she can take in more fluids and is dehydrated. Intermittent nausea controlled with Zofran, no other GI symptoms or signs of GI bleeding. Comprehensive review of systems performed. See full ROS in EMR. 12 point ROS was performed and negative except as noted above in the HPI. An extensive review of past records including prior office notes, labs, imaging, and pathology reports was performed from the Media tab, Care Everywhere and paper documents. Past 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: Past 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: Diagnosis Date Abdominal hernia 02/21/2023 Alcoholic hepatitis (CMS-HCC) Anxiety Ascites Chronic diarrhea 08/21/2022 Cirrhosis (CMS-HCC) Cystitis Depression Hepatitis C Allergies: Allergies[1] Medications: Current Outpatient Medications Medication Sig acetaminophen Take 3 tablets (975 mg total) by mouth every 8 hours. aspirin Chew 1 tablet (81 mg total) by mouth daily. calcium-vitamin D Take 1 tablet by mouth 2 times a day with meals. fluconazole Take 1 tablet (200 mg total) by mouth daily for [address] 2 patches onto the skin daily. Apply patch for 12 hours and then remove patch and leave off for 12 hours. melatonin Take 1 tablet (3 mg total) by mouth at bedtime. methocarbamoL Take 2 tablets (1,000 mg total) by mouth 3 times a day. mycophenolate Take 2 capsules (500 mg total) by mouth 2 times a day. naloxone Apply 1 spray in one nostril if needed. Call 911. May repeat dose in other nostril if no response in 3 minutes. ondansetron Take 1 tablet (8 mg total) by mouth every 8 hours as needed for Nausea. oxyCODONE Take 2 tablets (10 mg total) by mouth every 6 hours as needed for Pain for up to 7 days. oxyCODONE Take 2 tablets (10 mg total) by mouth every 6 hours as needed for Pain for up to 7 days. oxyCODONE Take 3 tablets (15 mg total) by mouth every 4 hours as needed for Pain for up to 7 days. pantoprazole Take 1 tablet (40 mg total) by mouth daily. polyethylene glycol Mix 1 capful (17 g) in 8 oz of liquid and drink by mouth daily as needed (Constipation). predniSONE Take 4 tablets (20 mg total) by mouth daily. pregabalin Take 1 capsule (100 mg total) by mouth 2 times a day for 30 days. senna-docusate Take 1 tablet by mouth at bedtime as needed for Constipation. sulfamethoxazole-trimethoprim Take 1 tablet by mouth daily. tacrolimus Take 2 capsules (2 mg total) by mouth every morning AND 3 capsules (3 mg total) at bedtime. traZODone Take 1 tablet (50 mg total) by mouth at bedtime for 30 days. ursodioL Take 1 capsule (300 mg total) by mouth 2 times a day. valGANciclovir Take 1 tablet (450 mg total) by mouth daily. No current facility-administered medications for this visit. Physical Examination: Vitals: 05/10/25 0910 BP: 117/75 BP Location: Left upper arm Patient Position: Sitting BP Cuff Size: Regular Pulse: 72 Resp: 16 Temp: 98.1 ??F (36.7 ??C) TempSrc: Oral SpO2: 100% Weight: 158 lb 1.6 oz (71.7 kg) Height: 5' 5 (1.651 m) General: Well-developed, well nourished. No acute distress. HEENT: Mucous membranes pink/moist. No scleral icterus. Neck: Neck is supple. No tracheal deviation. No cervical lymphadenopathy. CV: Regular rate and rhythm. Normal S1 and S2. Lungs: Clear to auscultation bilaterally. No wheezes/rales/rhonchi. No respiratory distress. Abdomen: Soft, non-tender, non-distended, no hepatosplenomegaly or palpable masses. No ascites present. No rebound or guarding present. Well healed surgical scar. Drain in place with serous fluid. Extremities: No bilateral lower extremity edema. No clubbing or cyanosis present. Skin: No bruising or rash noted. No spider angiomata or palmar erythema. Neuro: Alert and oriented to person, place, and time. CN II-XII grossly intact. No gross motor defecits. No asterixis. Psych: Normal mood and affect. Normal speech and behavior. Labs: Lab name 05/01/25 1021 05/02/25 0534 05/03/25 0546 HEMOGLOBIN -- < > 7.1* HEMATOCRIT -- < > 20.9* MEAN CORPUSCULAR VOLUME -- < > 92.3 PLATELETS -- < > 147 SODIUM -- < > 135 POTASSIUM -- < > 4.3 CHLORIDE -- < > 103 CO2 -- < > 25 BUN -- < > 37* CREATININE -- < > 1.16 GLUCOSE -- < > 100 PHOSPHORUS -- < > 2.8 ALBUMIN -- < > 3.5 ALBUMINKID -- < > 3.5 CALCIUM -- < > 8.3* AST -- < > 54* ALT -- < > 108* BILIRUBIN TOTAL -- < > 2.4* ALK PHOS -- < > 849* INR 1.0 -- -- < > = values in this interval not displayed. Radiology: Reviewed. Assessment and Plan: 35 y/o, POD#22 from OLT for ESLD 2/2 HCV/EtOH. Post operative complications as noted above. - Graft function: Graft functioning well. LFTs downtrending. Repeat labs today pending. - Immunosuppression: Most recent tacro level 7.2 on 05/03/25. Continue tacrolimus 2/3 mg BID and Cellcept 500 mg BID and prednisone 20 mg daily. - DVT PPX: Caprini score 2. No indication for anticoagulation. - HCV: s/p Sarah prior to transplant in 2018. - HBV: Patient did not receive HepBcAb organ. - ID prophylaxis/surveillance: Patient continue on fluconazole until 1 month post-op, Bactrim until3 months post op, Valcyte until 3 months post-op. Patient will undergo universal screening with labs on Day 30 and 1 year. - Diabetes: A1c 4.4% 03/2025. - HTN: No issues. BP good at home. - Wound: [place] out next week (POD #30). - GI: Zofran PRN for nausea. - Psychosocial: Patient w/ h/o alcohol abuse. Will check serial PETHs. - Pain: Patient continues to require oxycodone for post operative pain, having undergone a liver transplant on 04/18/25. Oxycodone is being weaned; currently on 15mg q4h and discussed going down to q6h dosing over the next week. Will add on gabapentin 300mg TID for neuropathic pain. Pain clinic referral placed; patient hesitant at this time but discussed can take some time to get in. Pain management has been reviewed with Dr. Daniel. 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 - Bone health: Vit D level to be drawn ~POD #90. - Labs: Labs (CBC w/ diff, renal panel, liver panel, tacro level) twice a week. Lipid panel, DaiH0tyro Vit D level to be drawn at POD #90, HgbA1C and Vit D level to be drawn at POD #180. - Follow-Up: RTC 1 week. This note was completely edited, written and reviewed by me and consists of information cut and pasted from the my most recent visit, my smart phrases and other EPIC tools. I have personally reviewedall aspects of this note to at least include reviewing this patient's chart and problem list, updating the history, physical exam, lab and procedure results, and assessment and plan as detailed aboveand below. As such this visit note reflects my current evaluation and management for this patient. I have reviewed interval/recent lab work including: CBC, renal, hepatic, INR, viral studies, and all other labs for chronic liver disease relating to their medical condition. I have independently reviewed the patients recent radiologic imaging including any CT scans, MRI, ultrasound or endoscopic procedures. The patient's care was also discussed with our multidisciplinary team. Finally, I have reviewed independently any interval liver and GI pathology. I spent over 40 minutes of time on the care of this patient on this day. Patient reviewed with attending physician, Dr. Jose Daniel. Please refer to attending attestation. Fermín Ivan MD PGY-4, Fellow Division of Gastroenterology & Hepatology 05/10/2025 9:07 AM [1] No Known Drug Allergies or Adverse Reactions Cosigned by Jose Daniel MD at 05/16/2025 12:39 PM EST Associated attestation - Jose Daniel MD - 05/16/2025 12:39 PM EST Transplant Surgery Attending Attestation I have seen and examined the patient and agree with the plan. All points of care were reviewed in amultidisciplinary fashion with the housestaff and teams involved. Immunosuppression was reviewed and adjusted accordingly. This note represents care provided with the multidisciplinary team on 05/10/2025. Jose Daniel MD Transplant and Hepatobiliary Surgery [phone] (cell) * Cat Benavides RN - 05/10/2025 8:20 AM EST After visit summary including patient instructions reviewed with patient and support person. Continue IS medication regimen of FK at 2/3 and MMF at 500mg BID unchanged pending lab results. Start Gabaat 300mg TID and decrease Oxy to every 6 hours. Continue twice weekly labs and follow-up in 1 week.Pt verbalized understanding. Checked with patient to see if prescription refills and/or lab orders were needed. Updated preferred pharmacy and preferred lab information in patient demographics. Care coordinated with other team members and other medical providers as needed. Patient presents with the following needs: Pt denies needs or concerns at this time. documented in this encounter Plan of Treatment Scheduled Orders Name Type Priority Associated Diagnoses Orde r Schedule Hepatic Function Panel Lab Routine S/P liver transplant ([facility]) Immunosuppression ([facility]) every 2 weeks for 70 Occurrences starting 05/10/2025 until 11/07/2026, 2 completed Renal Function Panel w/EGFR Lab Routine S/P liver transplant ([facility]) Immunosuppression ([facility]) every 2 weeks for 70 Occurrences starting 05/10/2025 until 11/07/2026, 2 completed CBC Lab Routine S/P liver transplant ([facility]) Immunosuppression ([facility]) every 2 weeks for 70 Occurrences starting 05/10/2025 until 11/07/2026, 2 completed Differential Lab Routine S/P liver transplant ([facility]) Immunosuppression ([facility]) every 2 weeks for 70 Occurrences starting 05/10/2025 until 11/07/2026, 2 completed Tacrolimus level Lab Routine S/P liver transplant ([facility]) Immunosuppression ([facility]) every 2 weeks for 70 Occurrences starting 05/10/2025 until 11/07/2026, 2 completed Scheduled Referrals Name Type Priority Associated Diagnoses Orde r Schedule Pain Clinic Outpatient Referral STAT S/P liver transplant ([facility]) Postoperative pain Ordered: 05/10/2025 documented as of this encounter Results * Tacrolimus level (05/17/2025 10:14 AM EST) Tacrolimus (LC-MS) 5.2 3.0 - 15.0 ng/mL 05/17/2025 1:56 PM EST [facility] Comment:Performed via liquid chromatography tandem mass spectrometry. Detection limit: 1 ng/mL. Individual target concentrations may vary due to target organ and time after transplant. This test has been developed and its performance characteristics determined by [facility] which is certified under the Clinical Laboratory Improvement Amendment of 1988 (CLIA-88) to perform high complexity testing. The test has not been cleared or approved by the US Food and Drug Administration (FDA). The FDA has determined that such clearance is not necessary. The test should be used for clinical purposes and is not regarded as investigational. Whole Blood 05/17/2025 10:1 4 AM EST 05/17/2025 11:12 AM EST Narrative [facility] - 05/17/2025 1:56 PM EST Standing liver transplant labs. Please fax results to [phone]. Call critical results to [phone]. Quan Yates III, MD LAB BLOOD ORDERABLE S Final Result [facility] [address] [address], [facility] * Differential (05/17/2025 10:14 AM EST) Neutrophils Relative 61.3 40.0 - 80.0 % 05/17/2025 11:48 AM EST [facility] Lymphocytes Relative 25.5 15.0 - 45.0 % 05/17/2025 11:48 AM EST [facility] Monocytes Relative 9.8 0.0 - 12.0 % 05/17/2025 11:48 AM EST [facility] Eosinophils Relative 2.5 0.0 - 8.0 % 05/17/2025 11:48 AM EST [facility] Basophils Relative 0.9 0.0 - 1.0 % 05/17/2025 11:48 AM EST [facility] nRBC 0 0 - 0 /100 WBC 05/17/2025 11:48 AM EST [facility] Neutrophils Absolute 2,759 1,520 - 8,640 /uL 05/17/2025 11:48 AM EST [facility] Lymphocytes Absolute 1,148 570 - 4,860 /uL 05/17/2025 11:48 AM EST [facility] Monocytes Absolute 441 0 - 1,296 /uL 05/17/2025 11:48 AM EST [facility] Eosinophils Absolute 113 0 - 864 /uL 05/17/2025 11:48 AM EST [facility] Basophils Absolute 41 0 - 108 /uL 05/17/2025 11:48 AM EST [facility] Whole Blood 05/17/2025 10:1 4 AM EST 05/17/2025 11:13 AM EST Narrative [facility] - 05/17/2025 11:48 AM EST Standing liver transplant labs. Please fax results to [phone]. Call critical results to [phone]. us Quan Yates III, MD LAB BLOOD ORDERABLE S Final Result [facility] [address] * (ABNORMAL) CBC (05/17/2025 10:14 AM EST) WBC 4.5 3.8 - 10.8 10E3/uL 05/17/2025 11:48 AM [facility] RBC 2.91(L) 3.80 - 5.10 10E6/uL 05/17/2025 11:48 AM [facility] Hemoglobin 8.7(L) 11.7 - 15.5 g/dL 05/17/2025 11:48 AM [facility] Hematocrit 26.8(L) 35.0 - 45.0 % 05/17/2025 11:48 AM [facility] MCV 92.0 80.0 - 100.0 fL 05/17/2025 11:48 AM [facility] MCH 29.8 27.0 - 33.0 pg 05/17/2025 11:48 AM [facility] MCHC 32.4 32.0 - 36.0 g/dL 05/17/2025 11:48 AM [facility] RDW 17.6(H) 11.0 - 15.0 % 05/17/2025 11:48 AM [facility] Platelets 149 140 - 400 10E3/uL 05/17/2025 11:48 AM EST [facility] MPV 9.6 7.5 - 11.5 fL 05/17/2025 11:48 AM EST [facility] Whole Blood 05/17/2025 10:1 4 AM EST 05/17/2025 11:13 AM EST Narrative [facility] - 05/17/2025 11:48 AM EST Standing liver transplant labs. Please fax results to [phone]. Call critical results to [phone]. us Quan Yates III, MD LAB BLOOD ORDERABLE S Final Result [facility] [address] [facility] [place] [id number], [facility] * (ABNORMAL) Renal Function Panel w/EGFR (05/17/2025 10:14 AM EST) Sodium 138 133 - 146 mmol/L 05/17/2025 11:55 AM [facility] Potassium 3.9 3.5 - 5.3 mmol/L 05/17/2025 11:55 AM [facility] Chloride 105 98 - 110 mmol/L 05/17/2025 11:55 AM [facility] CO2 27 21 - 33 mmol/L 05/17/2025 11:55 AM [facility] Comment:High lactate dehydro genase concentrations in patient samples may cause falsely increased bicarbonate results. If markedly elevated LDH is observed or suspected, please assess results in conjunction with patient`s clinical presentation. In cases of discrepant results, consider evaluating CO2 in with a blood gas order. Anion Gap 6 3 - 16 mmol/L 05/17/2025 11:55 AM [facility] BUN 16 7 - 25 mg/dL 05/17/2025 11:55 AM EST [facility] Creatinine 0.51(L) 0.60 - 1.30 mg/dL 05/17/2025 11:55 AM EST [facility] Glucose 80 70 - 100 mg/dL 05/17/2025 11:55 AM [facility] Calcium 8.6 8.6 - 10.3 mg/dL 05/17/2025 11:55 AM EST [facility] Phosphorus 3.1 2.1 - 4.7 mg/dL 05/17/2025 11:55 AM EST [facility] Albumin 3.5 3.5 - 5.7 g/dL 05/17/2025 11:55 AM EST [facility] Osmolality, Calculated 286 278 - 305 mOsm/kg 05/17/2025 11:55 AM EST [facility] EGFR >90 05/17/2025 11:55 AM EST [facility] Comment: As of 2021, the [...] renal disease. For additional information: www.kidney.org Plasma 05/17/2025 10:1 4 AM EST 05/17/2025 11:11 AM EST Narrative [facility] - 05/17/2025 11:55 AM EST Standing liver transplant labs. Please fax results to [phone]. Call critical results to [phone]. us Quan Yates III, MD LAB BLOOD ORDERABLE S Final Result [facility] [address] [place] [address], [facility] * (ABNORMAL) Hepatic Function Panel (05/17/2025 10:14 AM EST) Total Bilirubin 1.0 0.0 - 1.5 mg/dL 05/17/2025 11:55 AM EST [facility] Bilirubin, Direct 0.37 0.00 - 0.40 mg/dL 05/17/2025 11:55 AM EST [facility] AST 20 13 - 39 U/L 05/17/2025 11:55 AM EST [facility] ALT 27 7 - 52 U/L 05/17/2025 11:55 AM EST [facility] Alkaline Phosphatase 249(H) 36 - 125 U/L 05/17/2025 11:55 AM EST [facility] Total Protein 5.5(L) 6.4 - 8.9 g/dL 05/17/2025 11:55 AM EST [facility] Albumin 3.5 3.5 - 5.7 g/dL 05/17/2025 11:55 AM EST [facility] Bilirubin, Indirect 0.63 0.00 - 1.10 mg/dL 05/17/2025 11:55 AM EST [facility] Plasma 05/17/2025 10:1 4 AM EST 05/17/2025 11:11 AM EST Narrative [facility] - 05/17/2025 11:55 AM EST Standing liver transplant labs. Please fax results to [phone]. Call critical results to [phone]. us Quan Yates III, MD LAB BLOOD ORDERABLE S Final Result Performing Organization Address City/State/[facility] Co de Phone Number [facility] [address] * Tacrolimus level (05/10/2025 9:04 AM EST) Tacrolimus (LC-MS) 5.3 3.0 - 15.0 ng/mL 05/10/2025 2:10 PM EST [facility] Comment:Performed via liquid chromatography tandem mass spectrometry. Detection limit: 1 ng/mL. Individual target concentrations may vary due to target organ and time after transplant. This test has been developed and its performance characteristics determined by [facility] which is certified under the Clinical Laboratory Improvement Amendment of 1988 (CLIA-88) to perform high complexity testing. The test has not been cleared or approved by the US Food and Drug Administration (FDA). The FDA has determined that such clearance is not necessary. The test should be used for clinical purposes and is not regarded as investigational. Whole Blood 05/10/2025 9:04 AM EST 05/10/2025 10:41 AM EST Narrative [facility] - 05/10/2025 2:10 PM EST Standing liver transplant labs. Please fax results to [phone]. Call critical results to [phone]. us Quan Yates III, MD LAB BLOOD ORDERABLE S Final Result [facility] [address] [place] [address], [facility] * (ABNORMAL) Differential (05/10/2025 9:04 AM EST) Neutrophils Relative 64.4 40.0 - 80.0 % 05/10/2025 10:54 AM EST [facility] Lymphocytes Relative 22.5 15.0 - 45.0 % 05/10/2025 10:54 AM EST [facility] Monocytes Relative 8.4 0.0 - 12.0 % 05/10/2025 10:54 AM [facility] Eosinophils Relative 2.9 0.0 - 8.0 % 05/10/2025 10:54 AM EST [facility] Basophils Relative 1.8(H) 0.0 - 1.0 % 05/10/2025 10:54 AM EST [facility] nRBC 0 0 - 0 /100 WBC 05/10/2025 10:54 AM EST [facility] Neutrophils Absolute 3,478 1,520 - 8,640 /uL 05/10/2025 10:54 AM EST [facility] Lymphocytes Absolute 1,215 570 - 4,860 /uL 05/10/2025 10:54 AM [facility] Monocytes Absolute 454 0 - 1,296 /uL 05/10/2025 10:54 AM EST [facility] Eosinophils Absolute 157 0 - 864 /uL 05/10/2025 10:54 AM EST [facility] Basophils Absolute 97 0 - 108 /uL 05/10/2025 10:54 AM EST [facility] [facility] Whole Blood 05/10/2025 9:04 AM EST 05/10/2025 10:31 AM EST Narrative [facility] - 05/10/2025 10:54 AM EST Standing liver transplant labs. Please fax results to [phone]. Call critical results to [phone]. us Quan Yates III, MD LAB BLOOD ORDERABLE S Final Result [facility] [address] [address], [facility] * (ABNORMAL) CBC (05/10/2025 9:04 AM EST) WBC 5.4 3.8 - 10.8 10E3/uL 05/10/2025 10:54 AM EST [facility] RBC 2.76(L) 3.80 - 5.10 10E6/uL 05/10/2025 10:54 AM [facility] Hemoglobin 8.5(L) 11.7 - 15.5 g/dL 05/10/2025 10:54 AM [facility] Hematocrit 25.9(L) 35.0 - 45.0 % 05/10/2025 10:54 AM [facility] MCV 94.0 80.0 - 100.0 fL 05/10/2025 10:54 AM [facility] MCH 30.7 27.0 - 33.0 pg 05/10/2025 10:54 AM [facility] MCHC 32.6 32.0 - 36.0 g/dL 05/10/2025 10:54 AM [facility] RDW 19.8(H) 11.0 - 15.0 % 05/10/2025 10:54 AM [facility] Platelets 189 140 - 400 10E3/uL 05/10/2025 10:54 AM [facility] MPV 9.7 7.5 - 11.5 fL 05/10/2025 10:54 AM [facility] Whole Blood 05/10/2025 9:04 AM EST 05/10/2025 10:31 AM EST Narrative [facility] - 05/10/2025 10:54 AM EST Standing liver transplant labs. Please fax results to [phone]. Call critical results to [phone]. Quan Yates III, MD LAB BLOOD ORDERABLE S Final Result [facility] [address] [place] [address], [facility] * (ABNORMAL) Renal Function Panel w/EGFR (05/10/2025 9:04 AM EST) Sodium 140 133 - 146 mmol/L 05/10/2025 11:59 AM EST [facility] Potassium 4.2 3.5 - 5.3 mmol/L 05/10/2025 11:59 AM EST [facility] Chloride 106 98 - 110 mmol/L 05/10/2025 11:59 AM [facility] CO2 29 21 - 33 mmol/L 05/10/2025 11:59 AM [facility] Comment:High lactate dehydro genase concentrations in patient samples may cause falsely increased bicarbonate results. If markedly elevated LDH is observed or suspected, please assess results in conjunction with patient`s clinical presentation. In cases of discrepant results, consider evaluating CO2 in with a blood gas order. Anion Gap 5 3 - 16 mmol/L 05/10/2025 11:59 AM EST [facility] BUN 19 7 - 25 mg/dL 05/10/2025 11:59 AM [facility] Creatinine 0.55(L) 0.60 - 1.30 mg/dL 05/10/2025 11:59 AM [facility] Glucose 74 70 - 100 mg/dL 05/10/2025 11:59 AM [facility] Calcium 8.3(L) 8.6 - 10.3 mg/dL 05/10/2025 11:59 AM [facility] Phosphorus 2.5 2.1 - 4.7 mg/dL 05/10/2025 11:59 AM [facility] Albumin 3.3(L) 3.5 - 5.7 g/dL 05/10/2025 11:59 AM [facility] Osmolality, Calculated 291 278 - 305 mOsm/kg 05/10/2025 12:00 PM EST [facility] EGFR >90 05/10/2025 12:00 PM EST [facility] Comment: As of 2021, the [...] renal disease. For additional information: www.kidney.org Plasma 05/10/2025 9:04 AM EST 05/10/2025 10:46 AM EST Narrative [facility] - 05/10/2025 12:00 PM EST Standing liver transplant labs. Please fax results to [phone]. Call critical results to [phone]. Quan Yates III, MD LAB BLOOD ORDERABLE S Final Result [facility] [address] * (ABNORMAL) Hepatic Function Panel (05/10/2025 9:04 AM EST) Total Bilirubin 1.3 0.0 - 1.5 mg/dL 05/10/2025 11:59 AM EST [facility] Bilirubin, Direct 0.59(H) 0.00 - 0.40 mg/dL 05/10/2025 11:59 AM EST [facility] AST 29 13 - 39 U/L 05/10/2025 11:59 AM EST [facility] ALT 46 7 - 52 U/L 05/10/2025 11:59 AM EST [facility] Alkaline Phosphatase 437(H) 36 - 125 U/L 05/10/2025 11:59 AM EST [facility] Total Protein 5.2(L) 6.4 - 8.9 g/dL 05/10/2025 11:59 AM EST [facility] Albumin 3.3(L) 3.5 - 5.7 g/dL 05/10/2025 11:59 AM EST [facility] Bilirubin, Indirect 0.71 0.00 - 1.10 mg/dL 05/10/2025 11:59 AM EST [facility] Plasma 05/10/2025 9:04 AM EST 05/10/2025 10:46 AM EST Narrative [facility] - 05/10/2025 12:00 PM EST Standing liver transplant labs. Please fax results to [phone]. Call critical results to [phone]. us Quan Yates III, MD LAB BLOOD ORDERABLE S Final Result [facility] [address] documented in this encounter Visit Diagnoses Diagnosis S/P liver transplant (CMS-HCC)- Primary Immunosuppression (CMS-HCC) Postoperative pain Other acute postoperative pain documented in this encounter Additional Health Concerns Assessment Noted Time PHQ-9 Depression Total Score: 13 025 2:00 PM EDT documented as of this encounter Care Teams Certified Pharmacist Assistant Relationship Specialty Start Date End Date Yonatan Graves DO [address] [place] [address] PCP - General 02/01/25 Farida Ortega NP [address] [place] [id number] Referring Physician Gastroenterology 09/02/23 Cat Benavides, RN Txp Post Coordinator Foundry Supervisor 05/02/25 documented as of this encounter
--- OUTSIDE RECORDS SUMMARY | 2025-05-17 09:00 | XMS_ITS | Encounter Summary ---
Author Organization [facility] Address [address] [place] [address] Care Team Providers Care Travel Administrator Name Role Phone Yonatan Graves Primary Care Provider Farida Ortega ARCHIVIST MILITARY HISTORY Unavailable [phone] Cat Benavides RN Unavailable Unava ilable Source [...] release of HIV test results or diagnoses. [id number] Reason for Visit * Reason Comments Liver Transplant Follow-up Encounter Details Date Type Department Care Team (Late st Contact Info) Description 05/17/2025 9:00 AM EST Office Visit [facility] Liver Transplant at [address] [address] Unknown, Attending Provider Reuben Jesus MD [address] [place] [phone] S/P liver transplant (CMS-HCC) (Primary Dx); End-stage liver disease (CMS-HCC); Immunosuppressive management encounter following liver transplant (CMS-HCC) Social History Tobacco Use Types Packs/Day Years Used Date Smoking Tobacco: Former Cigarettes 0.3 1.2 0 07/22/2014 - 07/22/2015 Smokeless Tobacco: Never Alcohol Use Standard Drinks/Week Comments Not Currently 0 (1 standard drink = 0.6 oz pur e alcohol) [facility] Utilities Answer Date Recorded In [...] any time in the past 12 m [facility], were you homeless or living [...] Sign Reading Time Taken Comments Blood Pressure 121/75 05/17/2025 10:22 AM EST Pulse 73 05/17/2025 10:22 AM EST Temperature - - Respiratory Rate 16 05/17/2025 10:22 AM EST Oxygen Saturation 100% 05/17/2025 10:22 AM EST Inhaled Oxygen Concentration 100% 05/17/2025 1 0:22 AM EST Weight 70.9 kg (156 lb 6.4 oz) 05/17/2025 10:22 AM EST Height 165.1 cm (5' 5 ) 05/17/2025 10:22 AM EST Body Mass Index 26.03 05/17/2025 10:22 AM EST documented in this encounter Patient Instructions * Patient Instructions* Reuben Jesus MD - 05/17/2025 9:00 AM EST Continue Cellcept 500 mg twice daily Continue tacrolimus 4 mg twice daily Decrease prednisone to 15 mg daily Increase trazadone to 100 mg at bedtime for sleep Decrease oxycodone to 10 mg q6h as needed for pain Can start weaning robaxin to 500 mg three times a day for pain if tolerated STOP Melatonin STOP Lyrica Decrease labs to weekly (Mondays or Tuesdays) RTC 2 weeks documented in this encounter Progress Notes * Beatriz Daniel MD - 05/17/2025 9:00 AM ESTAddended by: BEATRIZ DANIEL on: 05/18/2025 01:49 PM Modules accepted: Orders * Beatriz Daniel MD - 05/17/2025 9:00 AM ESTAddended by: BEATRIZ DANIEL on: 05/18/2025 02:02 PM Modules accepted: Orders * Beatriz Daniel MD - 05/17/2025 9:00 AM ESTAddended by: BEATRIZ DANIEL on: 05/18/2025 04:14 PM Modules accepted: Orders * Pao Tobar PharmD - 05/17/2025 9:00 AM EST Transplant Pharmacist Assessment and Recommendations: Pharmacist assessment completed via chart review and discussed with provider (did not see patient in clinic today). Medication Reconciliation: not performed LDLT Indication: ALD/HCC Immunosuppression: STANDARD - POD #29 Perioperative immunosuppression regimen included: steroid taper, tacrolimus and Mycophenolate Mofetil. Currently on tacrolimus 4mg bid (increased 05/11/25), mycophenolate 500mg BID, and prednisone 20mg. Administers medications at: 9am/pm Goal Tacrolimus level per protocol is 10-12 ng/mL. Donor: n/a Rejection History: none Prophylaxis: VTE-Caprini score 10(Apixiban 2.5mg bid): 30 day duration per protocol: Discontinued early on day of discharge: 05/03/25 (d/t cost of therapies outpatient) Fungal (Fluconazole): 1 month per protocol. Discontinue: 05/23/25 PCP (Bactrim): 3 months per protocol. Discontinue: 07/19/25 Viral (Valcyte 450mg daily): 3 months per protocol (D+/R+). Discontinue: 07/19/25 Aspirin: LDLT Blood Sugars: NOT diabetic prior to transplant Not discharged on insulin or with home monitoring. Blood pressure: NOT on Therapy BP: not assessed. Continue to monitor. Other: Pain (Category B): not assessed. Discharged on acetaminophen 975mg every 8 hours, lyrica 100mg bid (on gabapentin 800mg tid prior; switch to lyrica for potential increased efficacy), methocarbamol 1000mg tid, lidocaine patch PRN and oxycodone PRN Ondansetron: PRN Trazodone: nightly HCV: recipient HCV RNA not detected prior to transplant Peth Monitoring: TBD ACVD Risk: Unable to calculate due too young Premgarda: not interested Ursodiol: initiated 05/02/25 Adherence: NOT ASSESSED Patient reports missing 0 doses in the past 7 days The following barriers to adherence have been identified: none It is my assessment that the patient demonstrates satisfactory adherence and medication understanding Recommendations: Tacrolimus: level PENDING ng/ml (05/12/25) and 5.3 ng/ml (05/10/25); dose increased to 4mg bid on 05/21/25. Assess with current labs. Prednisone: if labs WNL, taper to 15mg/day Fluconazole: continue through 06/03/25 VTE Prophylaxis: completed early (day of discharge) Pain: continue to monitor and taper therapies as indicated * Reuben Jesus MD - 05/17/2025 9:00 AM EST Liver Transplant Follow Up HPI: This is a follow [...] 04/23/25 due to bleeding from JJ anastomosis. Large volume clot removed, no active bleeding found [...] receive organ from increased risk donor. Path: negative for neoplasm Current immunosuppression is: MMF 500mg BID, tacrolimus 4 mg BID, prednisone 20mg daily Interval History: Today in clinic, Mindy reports that she has been doing well at home. She deniesany fever or chills, nausea, vomiting, or diarrhea. She is taking the stool softeners to help with constipation. She reports that she is doing ok with the weaning the pain medication, but notices that the pain is coming back around the 6hr maribeth. Comprehensive review of systems performed. See full ROS in EMR. 12 point ROS was performed and negative except as noted above in the HPI. An extensive review of past records including prior office notes, labs, imaging, and pathology reports was performed from the Media tab, Care Everywhere and paper documents. ROS: Gen: no fatigue, no malaise, no fever [...] joint pain, no joint swelling Past 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: Past 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: Diagnosis Date Abdominal hernia 02/21/2023 Alcoholic hepatitis ([facility]-HCC) Anxiety Ascites Chronic diarrhea 08/21/2022 Cirrhosis ([facility]-HCC) Cystitis Depression Hepatitis C Allergies: Allergies[1] Medications: Current Outpatient Medications Medication Sig acetaminophen Take 3 tablets (975 mg total) by mouth every 8 hours. aspirin Chew 1 tablet (81 mg total) by mouth daily. calcium-vitamin D Take 1 tablet by mouth 2 times a day with meals. fluconazole Take 1 tablet (200 mg total) by mouth daily for 30 days. gabapentin Take 1 capsule (300 mg total) by mouth 3 times a day for 30 days. Indications: Neuropathic Pain lidocaine Place 2 patches onto the skin daily. Apply patch for 12 hours and then remove patch and leave off for 12 hours. melatonin Take 3 tablets (9 mg total) by mouth at bedtime. methocarbamoL [...] hours as needed for Nausea. oxyCODONE Take 3 tablets (15 mg total) by mouth every 8 hours as needed for Pain for up [...] 1 tablet by mouth daily. tacrolimus Take 4 capsules (4 mg total) by mouth 2 times a day. traZODone Take 1 tablet (50 mg total) by mouth at bedtime for 30 days. ursodioL Take 1 capsule (300 mg total) by mouth 2 times a day. valGANciclovir Take 1 tablet (450 mg total) by mouth daily. No current facility-administered medications for this visit. Physical Examination: Vitals: 05/17/25 1022 BP: 121/75 BP Location: Left upper arm Patient Position: Sitting BP Cuff Size: Regular Pulse: 73 Resp: 16 SpO2: 100% Weight: 156 lb 6.4 oz (70.9 kg) Height: 5' 5 (1.651 m) Gen: Well-developed, well nourished. No acute distress. HEENT: Mucous membranes pink/moist. No scleral icterus. Neck: Neck is supple. No tracheal deviation. No cervical lymphadenopathy. CV: Regular rate and rhythm. Normal S1 and S2. No murmurs/rubs/gallops. Lungs: Clear to auscultation bilaterally. No wheezes/rales/rhonchi. No respiratory distress. Abdomen: Soft, non-tender, non-distended stomach, no hepatosplenomegaly or palpable masses. Bowel sounds present. No ascites present. No rebound or guarding present. Well healed surgical scar Extremities: No bilateral lower extremity edema. No clubbing or cyanosis present. Skin: No bruising or rash noted. No spider angiomata or palmar erythema. Neuro: Alert and oriented to person, place, and time. CN 2-12 grossly intact. No gross motor defecits. No asterixis Psych: Normal mood and affect. Normal speech and behavior. Labs: Lab name 05/01/25 1021 05/02/25 0534 05/12/25 0932 HEMOGLOBIN -- < > 8.1* HEMATOCRIT -- < > 26.4* MEAN CORPUSCULAR VOLUME -- < > 98.1 PLATELETS -- < > 188 SODIUM -- < > 131 POTASSIUM -- < > 4.7 CHLORIDE -- < > 4.7 CO2 -- < > 23* BUN -- < > 16 CREATININE -- < > 0.40 GLUCOSE -- < > 69 PHOSPHORUS -- < > 3.1 ALBUMIN -- < > 3.1* ALBUMINKID -- < > -- CALCIUM -- < > 69 AST -- < > 37 ALT -- < > 51 BILIRUBIN TOTAL -- < > 1.2 ALK PHOS -- < > 402 INR 1.0 -- -- < > = values in this interval not displayed. Assessment and Plan: 35 yo, POD#29 from OLT for HCV/ETOH. Post operative complications as noted above. - Graft function: LFTs stable - today's labs pending - Peripheral edema: reports worsening edema bilateral LE - Immune suppression: most recent tacro level 5.3 (05/12/25 - today's level pending). Continue tacrolimus 4 mg BID and Cellcept 500 mg BID and decrease prednisone to 15 mg daily. - ID prophylaxis/surveillance: patient continue on fluconazole until 05/23/25, Bactrim until 07/19/25, Valcyte until 07/19/25. Patient will undergo universal screening with labs on day 30 and 1 year. - VTE prophylaxis: Caprini - 2, no anticoagulation - Wound: sergio out today - GI: no concerns - Psychosocial: Patient w/ h/o alcohol liver disease. PeTH monitoring per protocol at 30, 90, 180 days then annually - Pain: Patient is on Plan A (tylenol/gabapentin/tramadol) or Plan B (tylenol/gabapentin/oxycodone). - Nutrition: patient continues close f/u w/ transplant [facility]. - Bone health: Vit D level to be drawn ~POD#90. DEXA scan in future. - Labs: Labs (CBC w/ diff, renal panel, liver panel, tacro level) every week. Lipid panel, HgbA1C and Vit D level to be drawn at POD#90, HgbA1C and Vit D level to be drawn at POD#180. - Follow up: RTC 2 weeks REUBEN JESUS MD, [facility], FACS Transplant Surgeon traditional chinese herbalist [facility] [1] No Known Drug Allergies or Adverse Reactions * Cat Benavides RN - 05/17/2025 9:00 AM EST After visit summary including patient instructions reviewed with patient and SO. Continue IS medication regimen of FK at 4mg and MMF at 500mg BID unchanged pending lab results. Decrease Pred to 15mg daily. Increase Trazodone to 100mg QHS for sleep. Decrease Oxy to 10mg Q6H for pain. Try to wean Robaxin to 500mg TID if tolerated. Stop Melatonin and Lyrica. Labs once per week moving forward. Follow-up in 2 weeks. Pt verbalized understanding. Checked with patient to see if prescription refills and/or lab orders were needed. Updated preferred pharmacy and preferred lab information in patient demographics. Care coordinated with other team members and other medical providers as needed. Patient presents with the following needs: Pt concerned with the number of medication changes for pain control. RN will follow-up with Pt and Pt will follow-up with RN if she is having issues or needs. Pt agreeable with plan. Pt denies further needs at this time. documented in this encounter Plan of Treatment Not on file documented as of this encounter Visit Diagnoses Diagnosis S/P liver transplant (CMS-HCC)- Primary End-stage liver disease (CMS-HCC) Other sequelae of chronic liver disease Immunosuppressive management encounter following liver transplant (CMS-HCC) documented in this encounter Additional Health Concerns Assessment Noted Time PHQ-9 Depression Total Score: 13 025 2:00 PM EDT documented as of this encounter Care Teams Travel Administrator Relationship Specialty Start Date End Date Yonatan Graves DO [address] [place] [address] PCP - General 02/01/25 Farida Ortega, ARCHIVIST MILITARY HISTORY [address] [place] [address] Referring Physician Gastroenterology 09/02/23 Cat Benavides, KONSTANTIN Txp Post Coordinator Genomics Scientist 05/02/25 documented as of this encounter
--- OUTSIDE RECORDS SUMMARY | 2025-05-23 10:30 | XMS_ITS | Encounter Summary ---
Author Organization [facility] Address [address] [place] [address] Care Team Providers Care Community Engagement Representative Name Role Phone Yonatan Graves DO Primary Care Provider Farida Ortega POLICE LIEUTENANT PATROL Unavailable [phone] Source Comments This information has been disclosed [...] release of HIV test results or diagnoses. [id number] Health Encounter Details Date Type Department Care Team (Late st Contact Info) Description 04/06/2025 Telephone [facility] Liver Transplant at [address] [place] [phone] Abdullahi Cano, KONSTANTIN Social History Tobacco [...] Progress Notes * Abdullahi Cano RN - 04/06/2025 11:10 AM EDT Spoke to patient. No new concerns. Due to finish TB treatment on 04/11. Patient had labs last week.Will ask team to request. documented in this encounter Plan of Treatment Not on file documented as of this encounter Visit Diagnoses Not on filedocumented in this encounter Additional Health Concerns Assessment Noted Time PHQ-9 Depression Total Score: 13 11/04/ 025 2:00 PM EDT documented as of this encounter Care Teams Community Engagement Representative Relationship Specialty Start Date End Date Yonatan Graves DO [address] [place] [address] PCP - General 02/01/25 Farida Ortega, POLICE LIEUTENANT PATROL [address] [place] [address] Referring Physician Gastroenterology 09/02/23 documented as of this encounter
--- OUTSIDE RECORDS SUMMARY | 2025-05-23 10:30 | XMS_ITS | Encounter Summary ---
Author Organization [facility] Address [address] [place] [address] Care Team Providers Care Director Of Scout Work Name Role Phone Yonatan Graves DO Primary Care Provider Farida Ortega BOBBIN WINDER Unavailable [phone] Source Comments This information has been disclosed [...] release of HIV test results or diagnoses. [id number] Health Encounter Details Date Type Department Care Team (Late st Contact Info) Description 01/10/2025 Social Work [facility] Liver Transplant at [address] [address] Zeny Bhakta, PACKAGE DRIER, WRONG ADDRESS CLERK Social History Tobacco Use Types Packs/Day Years [...] as of this encounter Progress Notes * Zeny Bhakta, PACKAGE DRIER, WRONG ADDRESS CLERK - 01/10/2025 11:59 PM EDT TRANSPLANT PSYCHOSOCIAL ASSESSMENT Support Persons: Darien Wade (): [phone] Kee Llanes (father) Art Hernández (mother) Client's [...] and . 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 In 2016- 2019, she engaged in MAT (Subxone) with Dr. Preston ([facility]). She reports that she has been [...] or exacerbated by substance. Treatment: 2023: Outpatient; [facility] (Dr. Guajardo) Brynn Pittman (counselor)- [...] completed some college. 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 She worked in [employer]. She was never in the . Her [...] discussed the patient's psychosocial evaluation with the cis coordinator (Josie Cano). The patient participated in [...] re-referred by hepatology due to medical indication. - Resolved: patient completed CD treatment She has clear instructions of what he will need for post-transplant support and transportation. Sheis aware and is agreeable to the plan. SW will follow as needed in the transplant clinic. Patient was provided SW contact name and phone number for additional needs. ASIM Selby, AJ [phone] documented in this encounter Plan of Treatment Not on file documented as of this encounter Visit Diagnoses Not on filedocumented in this encounter Additional Health Concerns Assessment Noted Time PHQ-9 Depression Total Score: 13 11/04/ 025 2:00 PM EDT documented as of this encounter Care Teams Director Of Scout Work Relationship Specialty Start Date End Date Yonatan Graves DO [address] [place] [address] PCP - General 02/01/25 Farida Ortega NP [address] [place] [address] Referring Physician Gastroenterology 09/02/23 documented as of this encounter
--- OUTSIDE RECORDS SUMMARY | 2025-05-23 10:30 | XMS_ITS | Encounter Summary ---
Author Organization [facility] Address [address] [place] [address] Care Team Providers Care Information Systems Planner Name Role Phone Yonatan Graves Primary Care Provider Farida Ortega DEPENDENCY DIRECTOR Unavailable [phone] Cat Benavides RN Unavailable Unava ilable Source [...] release of HIV test results or diagnoses. [id number] Health Encounter Details Date Type Department Care Team (Late st Contact Info) Description 01/11/2025 Orders Only PROVIDER MEDICINE [address] [place] [phone] Frank Beltran MD [address] [place] [phone] Latent tuberculosis (Primary Dx) Social History Tobacco [...] documented as of this encounter Care Teams Information Systems Planner Relationship Specialty Start Date End Date Yonatan Graves DO [address] [place] [address] PCP - General 02/01/25 Farida Ortega, DEPENDENCY DIRECTOR [address] [place] [address] Referring Physician Gastroenterology 09/02/23 Cat Benavides, KONSTANTIN Txp Post Coordinator Quantitative Analyst Marketing 05/02/25 documented as of this encounter
--- OUTSIDE RECORDS SUMMARY | 2025-05-23 10:30 | XMS_ITS | Encounter Summary ---
Author Organization [facility] Address [address] [place] [address] Care Team Providers Care Windows Security Analyst Name Role Phone Yonatan Graves Primary Care Provider Farida Ortega CONTRACTS ANALYST Unavailable [phone] Cat Benavides RN Unavailable Unava ilable Source [...] release of HIV test results or diagnoses. [id number] Health Encounter Details Date Type Department Care Team (Late st Contact Info) Description 05/13/2025 Telephone [facility] Liver Transplant at [address] [place] [address] Nina Britton MA Social History Tobacco Use Types Packs/Day Years Used Date Smoking Tobacco: Former Cigarettes 0.3 1.2 0 07/22/2014 - 07/22/2015 Smokeless Tobacco: Never Alcohol Use Standard Drinks/Week Comments Not Currently 0 (1 standard drink = 0.6 oz pur e alcohol) [facility] Utilities Answer Date Recorded In the [...] any time in the past 12 m [facility], were you homeless or living in a longterm (including now)? No 04/19/2025 Yearly Questionnaire Answer [...] Progress Notes * Nina Britton MA - 05/13/2025 3:15 PM EST Initiated a PA for pts Oxycodone 5mg tabs on Cover My Meds Did PA with Jolie CALVO and submitted documented in this encounter Plan of Treatment Not on file documented as of this encounter Visit Diagnoses Not on filedocumented in this encounter Additional Health Concerns Assessment Noted Time PHQ-9 Depression Total Score: 13 025 2:00 PM EDT documented as of this encounter Care Teams Windows Security Analyst Relationship Specialty Start Date End Date Yonatan Graves DO [address] [place] [address] PCP - General 02/01/25 Farida Ortega, CONTRACTS ANALYST [address] [place] [address] Referring Physician Gastroenterology 09/02/23 Cat Benavides, KONSTANTIN Txp Post Coordinator Steam Fitter Supervisor 05/02/25 documented as of this encounter
--- OUTSIDE RECORDS SUMMARY | 2025-05-23 10:30 | XMS_ITS | Encounter Summary ---
Author Organization [facility] Address [address] [place] [id number] Care Team Providers Care Wafer Fabrication Operator Name Role Phone Kierra Guajardo MD Primary Care Provide r Encounter Details Date Type Department Care Team (Late st Contact Info) Description 11/29/2024 Results Follow-Up [facility] [address] [place] [address] Pao Hanley, C T TECH [address] [facility] [address] [place] [address] Social History Tobacco Use Types Packs/Day Years Used Date Smoking Tobacco: Former Cigarettes Smokeless Tobacco: Never Alcohol Use Standard Drinks/Week Comments Not Currently 0 (1 standard drink = 0.6 oz pure alcohol) 4-6 wine coolers daily for several years [facility] Utilities Answer Date Recorded In the past 12 months has [employer], gas, oil, or water [employer] threatened to shut off services in your [...] medical care, and heating? Patient declined 08/05/2023 [facility] [place] of Occupat ional Health - Occupational Stress [...] GED or equivalent No 08/05/2023 Preferred Language Moldovan 08/05/2023 PHQ-2 Answer Date Recorded Retired PHQ-9: [...] documented as of this encounter Care Teams Wafer Fabrication Operator Relationship Specialty Start Date End Date Kierra Guajardo MD [address] [place] [address] PCP - General Internal Medicine 10/23/23 documented as of this encounter
--- OUTSIDE RECORDS SUMMARY | 2025-05-23 10:30 | XMS_ITS | Encounter Summary ---
Author Organization [facility] Address [address] [place] [address] Care Team Providers Care Wall Covering Contractor Name Role Phone Yonatan Graves DO Primary Care Provider Farida Ortega MANAGER PLAN Unavailable [phone] Cat Benavides RN Unavailable Unava ilable Source [...] release of HIV test results or diagnoses. [id number] Reason for Visit * Reason Comments Advice Only Encounter Details Date Type Department Care Team (Late st Contact Info) Description 05/13/2025 Telephone [facility] Liver Transplant at [address] [address] Cat Benavides, casualty insurance claim adjuster Only Social History Tobacco Use Types Packs/Day Years Used Date Smoking Tobacco: Former Cigarettes 0.3 1.2 0 07/22/2014 - 07/22/2015 Smokeless Tobacco: Never Alcohol Use Standard Drinks/Week Comments Not Currently 0 (1 standard drink = 0.6 oz pur e alcohol) [facility] Utilities Answer Date Recorded In the past 12 months has [employer], gas, oil, or water company threatened [...] any time in the past 12 m [facility], were you homeless or living in a penitentiary (including now)? No 04/19/2025 Yearly Questionnaire Answer [...] encounter Miscellaneous Notes * Telephone Encounter - Cat Benavides RN - 05/13/2025 11:[address] Daniel: Lets start with increasing the Melatonin. We'll go up to 9mg and reassess. I don't want to make toomany changes all at once. Rx for Melatonin updated to 9mg and sent to local [facility] with Oxycodone Rx. Intentive Communicationshart message sent to Pt with increased dose instructions. * Telephone Encounter - Cat Benavides RN - 05/13/2025 11:38 AM EST Pt called and states she can't sleep. Pt states she lays down but is unable to rest. She is taking the prescribed Melatonin 3mg and Trazodone 50mg QHS as prescribed and continues to struggle with sleep. Pt inquiring if a dose increase or different medication is possible. RN will reach out to Dr Daniel and see what changes can be made and we will send new Rx(s) to [facility] with Oxy Rx. documented in this encounter Plan of Treatment Not on file documented as of this encounter Visit Diagnoses Not on filedocumented in this encounter Additional Health Concerns Assessment Noted Time PHQ-9 Depression Total Score: 13 11/04/ 025 2:00 PM EDT documented as of this encounter Care Teams Wall Covering Contractor Relationship Specialty Start Date End Date Yonatan Graves DO [address] [place] [address] PCP - General 02/01/25 Farida Ortega NP [address] [place] [address] Referring Physician Gastroenterology 09/02/23 Cat Benavides RN Txp Post Coordinator Dental Surgery Doctor 05/02/25 documented as of this encounter
--- OUTSIDE RECORDS SUMMARY | 2025-05-23 10:30 | XMS_ITS | Encounter Summary ---
Author Organization [facility] Address [address] [place] [address] Care Team Providers Care Optometric Coordinator Name Role Phone Yonatan Graves DO Primary Care Provider Farida Ortega SANITARY INSPECTOR Unavailable [phone] Source Comments This information has been disclosed [...] release of HIV test results or diagnoses. [id number] Health Encounter Details Date Type Department Care Team (Late st Contact Info) Description 03/29/2025 Orders Only [facility] Liver Transplant at [address] [address] Abdullahi Cano, RN Alcoholic cirrhosis of liver [...] as of this encounter Results * (ABNORMAL) Comprehensive metabolic panel (04/11/2025 2:35 PM EDT) Sodium 139 133 - 146 mmol/L 04/11/2025 5:55 PM EDT [facility] Potassium 3.8 3.5 - 5.3 mmol/L 04/11/2025 5:55 PM EDT [facility] Chloride 109 98 - 110 mmol/L 04/11/2025 5:55 PM EDT [facility] CO2 25 21 - 33 mmol/L 04/11/2025 5:55 PM EDT [facility] Comment:High lactate dehydro genase concentrations in patient samples may cause falsely increased bicarbonate results. If markedly elevated LDH is observed or suspected, please assess results in conjunction with patient`s clinical presentation. In cases of discrepant results, consider evaluating CO2 in with a blood gas order. Anion Gap 5 3 - 16 mmol/L 04/11/2025 5:55 PM EDT [facility] BUN 9 7 - 25 mg/dL 04/11/2025 5:55 PM EDT [facility] Creatinine 0.55(L) 0.60 - 1.30 mg/dL 04/11/2025 5:55 PM EDT [facility] Glucose 84 70 - 100 mg/dL 04/11/2025 5:55 PM EDT [facility] Calcium 8.7 8.6 - 10.3 mg/dL 04/11/2025 5:55 PM EDT [facility] Total Bilirubin 1.4 0.0 - 1.5 mg/dL 04/11/2025 5:55 PM EDT [facility] AST 42(H) 13 - 39 U/L 04/11/2025 5:55 PM EDT [facility] ALT 27 7 - 52 U/L 04/11/2025 5:55 PM EDT [facility] Alkaline Phosphatase 116 36 - 125 U/L 04/11/2025 5:55 PM EDT [facility] Total Protein 6.5 6.4 - 8.9 g/dL 04/11/2025 5:55 PM EDT [facility] Albumin 3.7 3.5 - 5.7 g/dL 04/11/2025 5:55 PM EDT [facility] Osmolality, Calculated 286 278 - 305 mOsm/kg 04/11/2025 5:55 PM EDT [facility] EGFR >90 04/11/2025 5:55 PM EDT [facility] Comment: As of 2021, [...] PM EDT 04/11/2025 3:53 PM EDT us Frank Kowalski MD LAB BLOOD ORDERABLES Final Result [facility] [address] documented in this encounter Visit Diagnoses Diagnosis Alcoholic cirrhosis of liver with ascites (CMS-HCC)- Primary Encounter for pre-transplant evaluation for liver transplant TB (tuberculosis) Unspecified pulmonary tuberculosis, confirmation unspecified documented in this encounter Additional Health Concerns Assessment Noted Time PHQ-9 Depression Total Score: 13 11/04/ 025 2:00 PM EDT documented as of this encounter Care Teams Optometric Coordinator Relationship Specialty Start Date End Date Yonatan Graves DO [address] [place], [place] [id number] PCP - General 02/01/25 Farida Ortega, HARLEEN [address] [place] [address] Referring Physician Gastroenterology 09/02/23 documented as of this encounter
--- OUTSIDE RECORDS SUMMARY | 2025-05-23 10:30 | XMS_ITS | Encounter Summary ---
Author Organization [facility] Address [address] [place] [address] Care Team Providers Care Model Making Supervisor Name Role Phone Yonatan Graves Primary Care Provider Farida Ortega SYSTEMS SUPPORT OFFICER Unavailable [phone] Cat Benavides RN Unavailable Unava ilable Source [...] release of HIV test results or diagnoses. [id number] Health Encounter Details Date Type Department Care Team (Late st Contact Info) Description 05/13/2025 Orders Only [facility] Liver Transplant at [address] [address] Jose Daniel MD [address] [place] [address] End-stage liver disease ([facility]) Social History Tobacco Use Types Packs/Day Years Used Date Smoking Tobacco: Former Cigarettes 0.3 1.2 0 07/22/2014 - 07/22/2015 Smokeless Tobacco: Never Alcohol Use Standard Drinks/Week Comments Not Currently 0 (1 standard drink = 0.6 oz pur e alcohol) [facility] Utilities Answer Date Recorded In the past 12 months has [employer], gas, oil, or water company threatened to [...] any time in the past 12 m [facility], were you homeless or living in a [...] encounter Visit Diagnoses Diagnosis End-stage liver disease (CMS-HCC) Other sequelae of chronic liver disease documented in this encounter Additional Health Concerns Assessment Noted Time PHQ-9 Depression Total Score: 13 025 2:00 PM EDT documented as of this encounter Care Teams Model Making Supervisor Relationship Specialty Start Date End Date Yonatan Graves DO [address] [place] [address] PCP - General 02/01/25 Farida Ortega, SYSTEMS SUPPORT OFFICER [address] [place] [address] Referring Physician Gastroenterology 09/02/23 Cat Benavides, KONSTANTIN Txp Post Coordinator Support Merchandiser 05/02/25 documented as of this encounter
--- OUTSIDE RECORDS SUMMARY | 2025-05-23 10:30 | XMS_ITS | Encounter Summary ---
Author Organization [facility] Address [address] [place] [address] Care Team Providers Care Supervisor Fish Hatchery Name Role Phone Yonatan Graves Primary Care Provider Farida Ortega CREEL HAND Unavailable [phone] Cat Benavides RN Unavailable Unava ilable Source [...] release of HIV test results or diagnoses. [id number] Health Encounter Details Date Type Department Care Team (Late st Contact Info) Description 05/13/2025 Chart Note [facility] Liver Transplant at [address] [place] [address] Nina Britton MA Social History Tobacco Use Types Packs/Day Years Used Date Smoking Tobacco: Former Cigarettes 0.3 1.2 0 07/22/2014 - 07/22/2015 Smokeless Tobacco: Never Alcohol Use Standard Drinks/Week Comments Not Currently 0 (1 standard drink = 0.6 oz pur e alcohol) [facility] Utilities Answer Date Recorded In [...] you are drinking? Patient does not drink 5 Q3: How often do you have si [...] any time in the past 12 m [facility], were you homeless or living in a [...] Associated Diagnosis Comments HEPATIC FUNCTION PANEL Routine 05/12/2025 9:32 AM EST CBC AND DIFFERENTIAL Routine 05/12/2025 9:32 AM EST RENAL FUNCTION PANEL W/O EGFR Routine 05/12/2025 9:32 AM EST documented in this encounter Results * (ABNORMAL) Renal Function Panel w/o EGFR (05/12/2025 9:32 AM EST) Glucose 69 BUN 16 CO2 23(A) 13 - 22 mmol/L Creatinine 0.40 Potassium 4.7 Sodium 131 Chloride 4.7 Phosphorus 3.1 2.5 - 4.9 mg/dL Calcium 69 EGFR 182 mg/dL Albumin 3.1(A) 3.5 - 5.0 g/dL Blood us Historical Provider MD LAB BLOOD ORDERABLES Rosa l Result * (ABNORMAL) CBC and differential (05/12/2025 9:32 AM EST) Hemoglobin 8.1(A) 12.0 - 16.0 g/dL Hematocrit 26.4(A) 36 - 46 % RDW 18.3(A) 11.5 - 14.5 % Lymphocytes Absolute 1.2 / L Monocytes Absolute 0.7 / L Eosinophils Absolute 0.2 / L Basophils Absolute 0 / L Neutrophils Relative 60.3 46 - 78 % Lymphocytes Relative 21.9 18 - 52 % Monocytes Relative 12.5(A) 3 - 10 % Eosinophils Relative 3.7 0 - 6 % Basophils Relative 0.7 0 - 3 % Neutrophils Absolute 3.4 / L MCH 30.1 26.0 - 34.0 pg MCHC 30.7 30 - 37 g/dL MCV 98.1 82.0 - 108.0 fL Platelets 188 K/ L RBC 2.69(A) 4.00 - 5.20 10^6/ L WBC 5.7 10^3/mL Blood us Historical Provider MD LAB BLOOD ORDERABLES Rosa l Result * Hepatic Function Panel (05/12/2025 9:32 AM EST) Bilirubin, Direct 0.6 Alkaline Phosphatase 402 ALT 51 AST 37 Total Bilirubin 1.2 Total Protein 5 Plasma us Historical Provider MD LAB BLOOD ORDERABLES Rosa l Result documented in this encounter Visit Diagnoses Not on filedocumented in this encounter Additional Health Concerns Assessment Noted Time PHQ-9 Depression Total Score: 13 025 2:00 PM EDT documented as of this encounter Care Teams Supervisor Fish Hatchery Relationship Specialty Start Date End Date Yonatan Graves DO [address] [place] [address] PCP - General 02/01/25 Farida Ortega, CREEL HAND [address] [place] [address] Referring Physician Gastroenterology 09/02/23 Cat Benavides, KONSTANTIN Txp Post Coordinator Cell Builder 05/02/25 documented as of this encounter
--- OUTSIDE RECORDS SUMMARY | 2025-05-23 10:30 | XMS_ITS | Encounter Summary ---
Author Organization [facility] Address [address] [place] [address] Care Team Providers Care Tube And Manifold Builder Name Role Phone Yonatan Graves DO Primary Care Provider Adryan Bearden Unavailable Encounter Details Date Type Department Care Team (Latest Contact Info) Description 04/12/2025 Travel Social History Tobacco Use Types Packs/Day [...] documented as of this encounter Care Teams Tube And Manifold Builder Relationship Specialty Start Date End Date Yonatan Graves DO [address] [facility] [address] [place] [address] PCP - General 09/24/22 Adryan Bearden PA [facility] [place] [address] Referring Physician Gastroenterology 09/24/22 documented as of this encounter
--- OUTSIDE RECORDS SUMMARY | 2025-05-23 10:30 | XMS_ITS | Encounter Summary ---
Author Organization [facility] Address [address] [place] [address] Care Team Providers Care Lap Polisher Name Role Phone Yonatan Graves DO Primary Care Provider Farida Ortega CALIBRATION TECHNICIAN Unavailable [phone] Cat Benavides RN Unavailable Unava ilable Source [...] release of HIV test results or diagnoses. [id number] Reason for Visit * Reason Comments Advice Only Encounter Details Date Type Department Care Team (Late st Contact Info) Description 05/12/2025 Telephone [facility] Liver Transplant at [address] [address] Cat Benavides, technical director Only Social History Tobacco Use Types Packs/Day Years Used Date Smoking Tobacco: Former Cigarettes 0.3 1.2 0 07/22/2014 - 07/22/2015 Smokeless Tobacco: Never Alcohol Use Standard Drinks/Week Comments Not Currently 0 (1 standard drink = 0.6 oz pur e alcohol) [facility] Utilities Answer Date Recorded In the past 12 months has [employer], gas, oil, or water company threatened [...] any time in the past 12 m [facility], were you homeless or living in [...] Telephone Encounter - Cat Benavides RN - 05/12/2025 2:36 PM EST Pt LVM for RN to return call as Pt has questions for RN. RN returned the call to Pt who states [facility] called her and said all they can offer her is a steroid injection for pain. If she is notinterested in that she should not schedule an appointment with them. No note was placed in Pt's chart indicating a phone call was placed but documentation was made on referral that corroborates what Pt states was said. Pt states she does not feel a steroid injection this soon after surgery is appropriate but she will follow-up with them if we want her to. RN requested time to look into this. Pt states she has decreased her Oxy frequency and has been dosing every 6 hours with adequate pain coverage. Pt states once or twice her pain was bad and she had to repeat her dose after 4 hours but otherwise she has been able to manage with every 6 hour dosing. Pt states she is set to run out of medication on Friday and she would call RN back tomorrow if MD needed but she does not anticipate a change between now and tomorrow. RN will follow-up with Dr Daniel regarding medication and Kalin BARTON for assistance. documented in this encounter Plan of Treatment Not on file documented as of this encounter Visit Diagnoses Not on filedocumented in this encounter Additional Health Concerns Assessment Noted Time PHQ-9 Depression Total Score: 13 025 2:00 PM EDT documented as of this encounter Care Teams Lap Polisher Relationship Specialty Start Date End Date Yonatan Graves DO [address] [place] [address] PCP - General 02/01/25 Farida Ortega NP [address] [place] [address] Referring Physician Gastroenterology 09/02/23 Kennedy, Cat Naila, RN Txp Post Coordinator Director Of Physical Therapy 05/02/25 documented as of this encounter
--- OUTSIDE RECORDS SUMMARY | 2025-05-23 10:30 | XMS_ITS | Encounter Summary ---
Author Organization [facility] Address [address] [place] [address] Care Team Providers Care Coal Trammer Name Role Phone Yonatan Graves Primary Care Provider Farida Ortega DINKEY ENGINEER Unavailable [phone] Cat Benavides RN Unavailable Unava ilable Source [...] release of HIV test results or diagnoses. [id number] Health Encounter Details Date Type Department Care Team (Late st Contact Info) Description 05/13/[address] [facility] [address] [place] [id number] Naila Rajput [facility] Social History Tobacco Use Types Packs/Day Years Used Date Smoking Tobacco: Former Cigarettes 0.3 1.2 0 07/22/2014 - 07/22/2015 Smokeless Tobacco: Never Alcohol Use Standard Drinks/Week Comments Not Currently 0 (1 standard drink = 0.6 oz pur e alcohol) [facility] Utilities Answer Date Recorded In the past 12 months has [employer], gas, oil, or water company threatened to [...] any time in the past 12 m [facility], were you homeless or living in a fpc (including now)? No 04/19/2025 Yearly Questionnaire Answer [...] encounter Miscellaneous Notes * Telephone Encounter - Naila Rajput [facility] - 05/13/2025 11:19 AM EST Patient expressed she would prefer to fill all medications through local [facility]. All prescriptions transferred and patient provided with [facility] phone number if need for assistance in the future. Naila Rajput PharmD Clinical Filing Writer - Transplant [facility] [phone] (p); [phone] (f) * Telephone Encounter - Naila Rajput RPh - 05/13/2025 10:55 AM EST Tacrolimus dose increase received at Specialty Pharmacy. Attempted to reach patient to discuss enrollment in specialty pharmacy services (unable to leave voicemail for patient). Naila Rajput PharmD Clinical Filing Writer - Transplant [facility] [phone] (p); [phone] (f) documented in this encounter Plan of Treatment Not on file documented as of this encounter Visit Diagnoses Not on filedocumented in this encounter Additional Health Concerns Assessment Noted Time PHQ-9 Depression Total Score: 13 11/04/ 025 2:00 PM EDT documented as of this encounter Care Teams Coal Trammer Relationship Specialty Start Date End Date Yonatan Graves DO [address] [place] [address] PCP - General 02/01/25 Farida Ortega, HARLEEN [address] [place] [address] Referring Physician Gastroenterology 09/02/23 Cat Benavides, KONSTANTIN Txp Post Coordinator Natural Gas Field Processing Supervisor 05/02/25 documented as of this encounter
--- OUTSIDE RECORDS SUMMARY | 2025-05-23 10:30 | XMS_ITS | Clinical Summary ---
Author Organization [facility] Address [address] [place] [address] Care Team Providers Care Fundraising Manager Name Role Phone Yonatan Graves DO [...] mouth 1 (one) time each day. 12/27/2022 Active ondansetron (Zofran) 8 MG tablet Take 1 tablet (8 mg) by mouth every 12 (twelve) hours if needed for nausea or vomiting. Active furosemide (Lasix) 20 MG tablet Take 1 tablet (20 mg) by mouth 1 (one) time each day. 30 tablet 2 09/09/2023 Active spironolactone (Aldactone) 50 MG tablet Take 2 tablets (100 mg) by mouth 1 (one) time each day. 60 each 2 09/09/2023 Active fluconazole (Diflucan) 150 MG tabletIndicatio ns:Severe alcohol use disorder, in sustained remission Take 1 tablet by mouth every 3rd day. 1 tablet 11/08/2024 Active gabapentin (Neurontin) 800 MG tablet Take 1 tablet by mouth 3 times a day. 90 tablet 04/12/2025 Active Active Problems Problem Noted Date Diagnosed Date Acute bacterial bronchitis 07/03/2023 Asthma 07/03/2023 Finger contusion 07/03/2023 Finger sprain 07/03/2023 Shingles 07/03/2023 Viral syndrome 07/03/2023 Unspecified viral hepatitis C without hepatic co ma 04/10/2023 Other disorders of bilirubin metabolism 04/10/20 Other specified abnormal findings of blood chemi [...] gallbladder with out cholecystitis without obstruction 10/22/2022 Chronic viral hepatitis C 08/19/2022 High risk due to smoking 11/09/2015 Opiate dependence, continuous 11/09/2015 New onset seizure 07/12/2015 Resolved Problems Problem Noted Date Diagnosed Date Resolved Date Bite 07/03/2023 03/13/2025 Exposure to COVID-19 virus 07/03/2023 0 03/13/2025 Abdominal distension (gaseous) 08/22/2022 03/13/2025 Urinary tract infection, site not specified 08/19/2022 03/13/2025 Acute bronchitis, unspecified 08/01/2022 03/13/2025 Encounters * This document contains information received from the source organization and may not represent a complete record from that organization. Date Type Department Care Team Description 04/12/2025 Travel 03/23/2025 Travel 02/24/2025 Travel from Last 3 Months Immunizations Immunization [...] - 19+ 3-dose series) 02/17/2025 11/02/2024, 08/20/2024 [id number] Vaccine (1 - 2024- season) 2025 [facility]-Influenza Vaccine (#1) 2025 04/19/2010 [facility]-Depression Screening 03/16/2025 03/16/2024, 02/22 [facility]-Cervical Cancer Screening 11/26/2027 [facility]-Pap Smear 11/26/2027 11/25/2024, 11/11/2023 [facility]-Zoster Vaccines (1 of 2) 01/26/2040 [facility]-HIV Screening Completed 04/18/2025, , 04/11/2025, Additional history exists [facility]-HIB Vaccines Aged Out No longer e [...] Reactive Non Reactive 08/28/2023 12:23 PM EST [facility] Comment:Screening for HIV 1 & 2 antibodies, and P24 antigen is NONREACTIVE. No confirmatory testing is required. Blood Venous blood specimen / Unknown Venipuncture / Unknown 08/28/2023 11:39 AM EST 08/28/2023 11:45 AM EST us Jasen Blanco MD LAB BLOOD ORDERABLES Fin al Result [facility] [address] [place] [address] from Last 3 Months or Most Recently Relevant to Health Maintenance Insurance [id number] [id number] [employer] MEDICARE [id number] [id number] Care Teams Fundraising Manager Relationship Specialty Start Date End Date Yonatan Graves DO [address] [place] [address] [address] [place] [address] PCP - General 09/24/22 Adryan Bearden PA [address] [place] [address] Referring Physician Gastroenterology 09/24/22
--- OUTSIDE RECORDS SUMMARY | 2025-05-23 10:31 | XMS_ITS | Encounter Summary ---
Author Organization [facility] Address [address] [place] [address] Care Team Providers Care Relations Manager Name Role Phone Yonatan Graves DO Primary Care Provider Adryan Bearden Unavailable Encounter Details Date Type Department Care Team ([facility] st Contact Info) Description 08/22/2022 Orders Only External Location [address] [place] [address] Yonatan Graves, DO [address] [place] [address] Social History Tobacco Use Types [...] on filedocumented in this encounter Care Teams Relations Manager Relationship Specialty Start Date End Date Yonatan Graves DO [facility] [address] [place] [address] PCP - General 09/24/22 Adryan Bearden PA [address] [place], [place] [id number] Referring Physician Gastroenterology 09/24/22 documented as of this encounter
--- OUTSIDE RECORDS SUMMARY | 2025-05-23 10:31 | XMS_ITS | Encounter Summary ---
Author Organization [facility] Address [address] [place] [address] Care Team Providers Care Solid Center Winder Name Role Phone Yonatan Graves Primary Care Provider Farida Ortega KNIFER UP Unavailable [phone] Source Comments This information has been disclosed [...] release of HIV test results or diagnoses. [id number] Health Encounter Details Date Type Department Care Team (Late st Contact Info) Description 04/11/2025 Chart Note [facility] Kidney Transplant at [address] [place] [phone] Niya Tripp Called [employer] tabatha at [phone] and got a pending IP auth for Social History Tobacco Use Types Packs/Day Years [...] encounter Progress Notes * Niya Tripp - 04/11/2025 11:39 AM EDT Called Sammie mays at [phone] and got a pending IP auth for patient's LD liver transplant scheduled for 04/18. Obtained pending auth number [id number]. Faxed notes to Alix JOSEPH, at [phone]. Pending response to finalize auth and approved dates. documented in this encounter Plan of Treatment Not on file documented as of this encounter Visit Diagnoses Not on filedocumented in this encounter Additional Health Concerns Assessment Noted Time PHQ-9 Depression Total Score: 13 11/04/ 025 2:00 PM EDT documented as of this encounter Care Teams Solid Center Winder Relationship Specialty Start Date End Date Yonatan Graves DO [address] [place] [address] PCP - General 02/01/25 Farida Ortega, HARLEEN [address] [place] [address] Referring Physician Gastroenterology 09/02/23 documented as of this encounter
--- OUTSIDE RECORDS SUMMARY | 2025-05-23 10:31 | XMS_ITS | Encounter Summary ---
Author Organization [facility] Address [address] [place] [address] Care Team Providers Care Web Applications Programmer Name Role Phone Yonatan Graves DO Primary Care Provider Farida Ortega RN [facility] Unavailable [phone] Source Comments This information has been disclosed [...] release of HIV test results or diagnoses. [id number] Health Encounter Details Date Type Department Care Team (Late st Contact Info) Description 04/11/2025 Chart Note [facility] Liver Transplant at [address] [place] [phone] Abdullahi Cano RN Reviewed patient with ID. Ok to move forward with LDLT as long as patient Social History Tobacco Use Types Packs/Day Years [...] Progress Notes * Abdullahi Cano RN - 04/11/2025 11:08 AM EDT Reviewed patient with ID. Ok to move forward with LDLT as long as patient with no new symptoms. documented in this encounter Plan of Treatment Not on file documented as of this encounter Visit Diagnoses Not on filedocumented in this encounter Additional Health Concerns Assessment Noted Time PHQ-9 Depression Total Score: 13 025 2:00 PM EDT documented as of this encounter Care Teams Web Applications Programmer Relationship Specialty Start Date End Date Yonatan Graves DO [address] [place] [address] PCP - General 02/01/25 Farida Ortega, RN [facility] [address] [place] [address] Referring Physician Gastroenterology 09/02/23 documented as of this encounter
--- OUTSIDE RECORDS SUMMARY | 2025-05-23 10:31 | XMS_ITS | Encounter Summary ---
Author Organization [facility] Address [address] [place] [address] Care Team Providers Care Probation Officer Name Role Phone Yonatan Graves Primary Care Provider Farida Ortega JOURNALISM INTERN Unavailable [phone] Source Comments This information has been disclosed [...] release of HIV test results or diagnoses. [id number] Health Encounter Details Date Type Department Care Team (Late st Contact Info) Description 04/07/2025 Telephone [facility] Liver Transplant at [address] [place] [phone] Tresa Reilly MA Social History Tobacco [...] Progress Notes * Tresa Reilly MA - 04/07/2025 11:02 AM EDT Requested labs from 03/31/2025 be faxed to liver transplant office. Chrissy stated she would be faxing today. documented in this encounter Plan of Treatment Not on file documented as of this encounter Visit Diagnoses Not on filedocumented in this encounter Additional Health Concerns Assessment Noted Time PHQ-9 Depression Total Score: 13 025 2:00 PM EDT documented as of this encounter Care Teams Probation Officer Relationship Specialty Start Date End Date Yonatan Graves DO [address] [place] [address] PCP - General 02/01/25 Farida Ortega, JOURNALISM INTERN [address] [place] [address] Referring Physician Gastroenterology 09/02/23 documented as of this encounter
--- OUTSIDE RECORDS SUMMARY | 2025-05-23 10:31 | XMS_ITS | Encounter Summary ---
Author Organization [facility] Address [address] [place] [address] Care Team Providers Care Physicist Solid State Name Role Phone Yonatan Graves Primary Care Provider Farida Ortega THERMIT WELDING MACHINE OPERATOR Unavailable Cat [place] RN Unavailable Unava ilable Source [...] release of HIV test results or diagnoses. [id number] Health Encounter Details Date Type Department Care Team (Late st Contact Info) Description 05/23/2025 Telephone [facility] Liver Transplant at [address] [place] [phone] Nina Britton MA Social History Tobacco Use Types Packs/Day Years Used Date Smoking Tobacco: Former Cigarettes 0.3 1.2 0 07/22/2014 - 07/22/2015 Smokeless Tobacco: Never Alcohol Use Standard Drinks/Week Comments Not Currently 0 (1 standard drink = 0.6 oz pur e alcohol) [facility] Utilities Answer Date Recorded In the past [...] time in the past 12 m [facility], were you homeless or living in a snf (including now)? No 04/19/2025 Yearly Questionnaire Answer [...] Progress Notes * Nina Britton MA - 05/23/2025 9:44 AM EST Gorge RN [facility] called to say that pt is having some acid reflux pretty bad. He would like to know if there is something else pt can be prescribed in addition to the Protnix 40mg daily? Gorge [facility] would like a call back about this. documented in this encounter Plan of Treatment Not on file documented as of this encounter Visit Diagnoses Not on filedocumented in this encounter Additional Health Concerns Assessment Noted Time PHQ-9 Depression Total Score: 13 025 2:00 PM EDT documented as of this encounter Care Teams Physicist Solid State Relationship Specialty Start Date End Date Yonatan Graves DO [address] [place] [address] PCP - General 02/01/25 Farida Ortega, THERMIT WELDING MACHINE OPERATOR [address] [place] [address] Referring Physician Gastroenterology 09/02/23 Cat [place], KONSTANTIN Txp Post Coordinator Signs And Displays Sales Representative 05/02/25 documented as of this encounter
--- OUTSIDE RECORDS SUMMARY | 2025-05-23 10:31 | XMS_ITS | Encounter Summary ---
Author Organization [facility] Address [address] [place] [address] Care Team Providers Care Seat Mender Name Role Phone Yonatan Graves DO Primary Care Provider Adryan Bearden Unavailable Encounter Details Date Type Department Care Team ([facility] st Contact Info) Description 10/11/2022 Orders Only External Location [address] [place] [address] Provider, External Social History Tobacco Use Types [...] EDT) Anatomical Region Laterality Modality Ultrasound 10/11/2022 1:3 6 PM EDT us External Provider IMG US PROCEDURES Final Result documented in this encounter Visit Diagnoses Not on filedocumented in this encounter Care Teams Seat Mender Relationship Specialty Start Date End Date Yonatan Graves DO [facility] [address] [place] [address] PCP - General 09/24/22 Adryan Bearden PA [address] [place] [address] Referring Physician Gastroenterology 09/24/22 documented as of this encounter
--- OUTSIDE RECORDS SUMMARY | 2025-05-23 10:31 | XMS_ITS | Encounter Summary ---
Author Organization [facility] [place] [facility] Address [address] [place] [address] Care Team Providers Care Insurance Claim Auditor Name Role Phone Yonatan Graves DO Primary Care Provider Farida Ortega MUD MILL TENDER Unavailable [phone] Source Comments This information has been disclosed [...] release of HIV test results or diagnoses. [id number] Health Encounter Details Date Type Department Care Team (Late st Contact Info) Description 04/08/2025 Orders Only [facility] Liver Transplant at [address] [phone] Quan Yates III, MD [address] [place] [phone] Social History Tobacco Use Types Packs/Day Years [...] Procedure Name Priority Date/Time Associated Diagnosis Comments HOX - HLA CROSSMATCH REPORT Routine 04/08/2025 9:59 AM EDT documented in this encounter Results * Hox - HLA Crossmatch Report (04/08/2025 9:59 AM EDT) 04/08/2025 9:59 AM EDT us Quan Yates III, MD LAB BLOOD ORDERABLE S Final Result Performing Organization Address City/State/[facility] Co de Phone Number [facility] [address] [phone] documented in this encounter Visit Diagnoses Not on filedocumented in this encounter Additional Health Concerns Assessment Noted Time PHQ-9 Depression Total Score: 13 11/04/ 025 2:00 PM EDT documented as of this encounter Care Teams Insurance Claim Auditor Relationship Specialty Start Date End Date Yonatan Graves DO [address] [place] [address] PCP - General 02/01/25 Farida Ortega, HARLEEN [address] [place] [address] Referring Physician Gastroenterology 09/02/23 documented as of this encounter
--- OUTSIDE RECORDS SUMMARY | 2025-05-23 10:31 | XMS_ITS | Encounter Summary ---
Author Organization [facility] Address [address] [place] [address] Care Team Providers Care Public Records Officer Name Role Phone Yonatan Graves DO Primary Care Provider Farida Ortega LIGHT RAIL SIGNAL TECHNICIAN Unavailable Cat [place] RN Unavailable Unava ilable [...] release of HIV test results or diagnoses. [id number] Health Encounter Details Date Type Department Care Team (Late st Contact Info) Description 09/02/2023 Orders Only [facility] [address] [place] [phone] Alyssa Lerma Social History Tobacco Use Types [...] on filedocumented in this encounter Care Teams Public Records Officer Relationship Specialty Start Date End Date Yonatan Graves DO [address] [place] [address] PCP - General 02/01/25 Farida Ortega, LIGHT RAIL SIGNAL TECHNICIAN [address] [phone] Referring Physician Gastroenterology 09/02/23 Cat [place], KONSTANTIN Txp Post Coordinator Shell Molding Roller Blast Operator 05/02/25 documented as of this encounter
--- OUTSIDE RECORDS SUMMARY | 2025-05-23 10:31 | XMS_ITS | Encounter Summary ---
Author Organization [facility] Address [address] [place] [address] Care Team Providers Care Chef Teacher Name Role Phone Yonatan Graves Primary Care Provider Farida Ortega PREPARATION SUPERVISOR FREEZING Unavailable [phone] Cat [place] RN Unavailable Unava ilable Source [...] release of HIV test results or diagnoses. [id number] Reason for Visit * Reason Comments Medication Refill Encounter Details Date Type Department Care Team (Late st Contact Info) Description 05/18/2025 Refill [facility] Kidney Transplant at [address] [phone] Yane Wheatley, SANTOSH [address] [place] [phone] Social History Tobacco Use Types Packs/Day Years Used Date Smoking Tobacco: Former Cigarettes 0.3 1.2 0 07/22/2014 - 07/22/2015 Smokeless Tobacco: Never Alcohol Use Standard Drinks/Week Comments Not Currently 0 (1 standard drink = 0.6 oz pur e alcohol) [facility] Utilities Answer Date Recorded In the past 12 months has [employer], or water [employer] threatened to shut off services in your [...] any time in the past 12 m [facility], were you homeless or living in a [...] Noted Time PHQ-9 Depression Total Score: 13 05/ 025 2:00 PM EDT documented as of this encounter Care Teams Chef Teacher Relationship Specialty Start Date End Date Yonatan Graves DO [address] [place] [address] PCP - General 02/01/25 Farida Ortega, PREPARATION SUPERVISOR FREEZING [address] [place] [address] Referring Physician Gastroenterology 09/02/23 Cat [place], KONSTANTIN Txp Post Coordinator Can Intake Worker 05/02/25 documented as of this encounter
--- OUTSIDE RECORDS SUMMARY | 2025-05-23 10:31 | XMS_ITS | Encounter Summary ---
Author Organization [facility] Address [address] [place] [address] Care Team Providers Care Retirement Village Manager Name Role Phone Yonatan Graves DO Primary Care Provider Farida Ortega BUILDING SUPPLIES SALESPERSON RETAIL Unavailable [phone] Cat Benavides RN Unavailable Unava ilable Source [...] release of HIV test results or diagnoses. [id number] Health Encounter Details Date Type Department Care Team (Late st Contact Info) Description 05/16/2025 Orders Only [facility] Liver Transplant at [address] [address] Cat Benavides, RN S/P liver transplant (CMS-HCC) (Primary Dx); Immunosuppression (CMS-HCC); Viral disease exposure; Low magnesium level; Healthcare maintenance; Alcohol use Social History Tobacco Use Types Packs/Day Years Used Date Smoking Tobacco: Former Cigarettes 0.3 1.2 0 07/22/2014 - 07/22/2015 Smokeless Tobacco: Never Alcohol Use Standard Drinks/Week Comments Not Currently 0 (1 standard drink = 0.6 oz pur e alcohol) [facility] Utilities Answer Date Recorded In the past 12 months has [employer] electric, gas, oil, or water company threatened [...] any time in the past 12 m [facility], were you homeless or living [...] this encounter Results * Phosphatidylethanol Confirmation, B (05/17/2025 10:14 AM EST) PETH 16:0/18.1 (POPETH) <10 Cutoff: 10 ng/mL 05/19/2025 1:41 PM [facility] Comment: Phosphatidylethanol (PEth) homologues result [...] PETH 16:0/18.2 (PLPETH) <10 Cutoff: 10 ng/mL 05/19/2025 1:41 PM EST [facility] Comment: PEth 16:0/18:2 (PLPEth) Reference ranges are not well established PEth Interpretation Negative. 05/19 1:41 PM [facility] Comment: ADDITIONAL INFORMATION This report is intended for use in clinical monitoring and management of patients. It is not intended for use in employment-related testing. This test was developed and its performance characteristics determined by [facility] in a manner consistent with CLIA requirements. This test has not been cleared or approved by the U.S. Food and Drug Administration. Test Performed by: [facility] - [address] [address] Custom Motorcycle Painter: Alexia David Ph.D.; CLIA# [id number] Whole Blood 05/17/2025 10:1 4 AM EST 05/19/2025 1:41 PM [facility] - 05/19/2025 1:41 PM EST One time lab order to be collected with next set of standing liver transplant labs. Please fax all results to [phone]. Call critical results to [phone]. Quan Yates III, MD LAB BLOOD ORDERABLE S Final Result Performing Organization Address [facility] Co de Phone Number [facility] [address] [place] [address]. [address] * Magnesium (05/17/2025 10:14 AM EST) Magnesium 1.6 1.5 - 2.5 mg/dL 05/17/2025 11:55 AM EST [facility] Plasma 05/17/2025 10:1 4 AM EST 05/17/2025 11:11 AM EST [facility] - 05/17/2025 11:55 AM EST One time lab order to be collected with next set of standing liver transplant labs. Please fax all results to [phone]. Call critical results to [phone]. Quan Yates III, MD LAB BLOOD ORDERABLE S Final Result Performing Organization Address [facility] de Phone Number [facility] [address] [place] [address]. [address] * HIV-1 RNA, Quantitative, PCR (05/17/2025 10:14 AM EST) Pathologist [facility] HIV 1 Copies Not Detected copies/mL 05/18/2025 1:21 PM EST [facility] Comment:Test methodology for HIV-1 RNA quantification is an FDA-approved nucleic acid amplification assay. The Lower Limit of Quantitation (LLoQ) is 20 copies/mL. The linear range is 20- to 10,000,000 copies/mL. The Limit of Detection (LoD) is 13.2 copies/mL. The reference range is Not Detected. HIV [id number] See Note [id number] /mL 05/18/2025 1:21 PM EST [facility] Comment:HIV-1 RNA not detect ed. Plasma 05/17/2025 10:1 4 AM EST 05/17/2025 11:11 AM EST Narrative [facility] - 05/18/2025 1:21 PM EST One time lab order to be collected with next set of standing liver transplant labs. UNOS requirement. Please fax all results to [phone]. Call critical results to [phone]. Quan Yates III, MD LAB BLOOD ORDERABLE S Final Result [facility] [address] [facility] [place] [address], [facility] * Hepatitis C RNA, Quantitative PCR (05/17/2025 10:14 AM EST) [facility] [employer] Units Not Detected IU/mL 05/18/2025 12:36 PM EST [facility] Comment:Test methodology for HCV RNA quantification is an FDA-approved nucleic acid amplification assay. The Lower Limit of Quantitation (LLOQ) is 15 IU/mL. The linear range of the assay is 15-100,000,000 IU/mL. The Limit of Detection (LoD) is 12.0 IU/mL for EDTA plasma. The reference range is Not Detected. IU log10 See Note log 10 IU/mL 05/18/2025 12:36 PM EST [facility] Comment:HCV RNA not detected . Plasma 05/17/2025 10:1 4 AM EST 05/17/2025 11:11 AM EST [facility] - 05/18/2025 12:36 PM EST One time lab order to be collected with next set of standing liver transplant labs. UNOS requirement. Please fax all results to [phone]. Call critical results to [phone]. Quan Yates III, MD LAB BLOOD ORDERABLE S Final Result [facility] [address] [facility] [address], [facility] * Hepatitis B Virus (HBV), PCR, Quant (05/17/2025 10:14 AM EST) Hep B Viral DNA IU/ML Not Detected IU/mL 05/20/2025 12:43 PM EST [facility] Comment:Test methodology for HBV DNA quantification is an FDA-approved nucleic acid amplification assay. The lower limit of quantitation (LLOQ) is 10 IU/mL. The linear range of the assay is 10-1,000,000,000 IU/mL. The limit of detection (LoD) for plasma is 2.7 IU/mL. The reference range is Not Detected. log 10 HBV as IU/mL See Note log 10 IU/mL 05/20/2025 12:43 PM EST [facility] Comment:HBV DNA not detected . Plasma 05/17/2025 10:1 4 AM EST 05/17/2025 11:49 AM EST Narrative [facility] - 05/20/2025 12:43 PM EST One time lab order to be collected with next set of standing liver transplant labs. UNOS requirement. Please fax all results to [phone]. Call critical results to [phone]. us Quan Yates III, MD LAB BLOOD ORDERABLE S Final Result [facility] [address] documented in this encounter Visit Diagnoses Diagnosis S/P liver transplant (CMS-HCC)- Primary Immunosuppression (CMS-HCC) Viral disease exposure Contact with or exposure to other viral diseases Low magnesium level Healthcare maintenance Alcohol use Other problems related to lifestyle documented in this encounter Additional Health Concerns Assessment Noted Time PHQ-9 Depression Total Score: 13 025 2:00 PM EDT documented as of this encounter Care Teams Retirement Village Manager Relationship Specialty Start Date End Date Yonatan Graves DO [address] [place] [address] PCP - General 02/01/25 Farida Ortega NP [address] [place] [address] Referring Physician Gastroenterology 09/02/23 Cat Benavides, RN Txp Post Coordinator Through Operator 05/02/25 documented as of this encounter
--- OUTSIDE RECORDS SUMMARY | 2025-05-23 10:31 | XMS_ITS | Encounter Summary ---
Author Organization [facility] Address [address] [place] [address] Care Team Providers Care Cash Office Worker Name Role Phone Yonatan Graves DO Primary Care Provider Farida rOtega MEDICAL ART THERAPIST Unavailable [phone] Cat Benavides RN Unavailable Unava ilable Source [...] release of HIV test results or diagnoses. [id number] Reason for Visit * Reason Comments Results Encounter Details Date Type Department Care Team (Late st Contact Info) Description 05/13/2025 Telephone [facility] Liver Transplant at [address] [address] Cat Benavides, RN Results Social History Tobacco Use Types Packs/Day Years Used Date Smoking Tobacco: Former Cigarettes 0.3 1.2 0 07/22/2014 - 07/22/2015 Smokeless Tobacco: Never Alcohol Use Standard Drinks/Week Comments Not Currently 0 (1 standard drink = 0.6 oz pur e alcohol) [facility] Utilities Answer Date Recorded In the past 12 months has e electric, gas, oil, or water company [...] time in the past 12 m [facility], were you homeless or living in a fci (including now)? No 04/19/2025 Yearly Questionnaire Answer [...] Encounter - Cat Benavides RN - 05/13/2025 3:35 PM EST Lab results from 05/12/25 reviewed. Cr 0.40 (from 0.55); BUN 16 (from 19). AST 37 (from 29) ALT 51 (from 46) Alk Phos 402 (from 437) PENDING FK level Current ISP: FK 4mg BID MMF 500mg BID Pred 20mg daily Fluc until 05/23 Bactrim until 07/19 Valcyte until 07/19 Will route to Txp Provider for further review and recommendations. documented in this encounter Plan of Treatment Not on file documented as of this encounter Visit Diagnoses Not on filedocumented in this encounter Additional Health Concerns Assessment Noted Time PHQ-9 Depression Total Score: 13 025 2:00 PM EDT documented as of this encounter Care Teams Cash Office Worker Relationship Specialty Start Date End Date Yonatan Graves DO [address] [place] [address] PCP - General 02/01/25 Farida Ortega, HARLEEN [address] [place] [address] Referring Physician Gastroenterology 09/02/23 Cat Benavides RN Txp Post Coordinator Cloth Bleaching Range Operator Chief 05/02/25 documented as of this encounter
--- OUTSIDE RECORDS SUMMARY | 2025-05-23 10:31 | XMS_ITS | Encounter Summary ---
Author Organization [facility] Address [address] [place] [address] Care Team Providers Care Meat Hostess Name Role Phone Yonatan Graves DO Primary Care Provider Farida Ortega FUNERAL LOCATION MANAGER Unavailable Source Comments This information has been [...] release of HIV test results or diagnoses. [id number] Health Encounter Details Date Type Department Care Team (Late st Contact Info) Description 03/29/2025 Telephone [facility] Liver Transplant at [address] [place] [phone] Abdullahi Cano, KONSTANTIN Social History Tobacco [...] documented as of this encounter Care Teams Meat Hostess Relationship Specialty Start Date End Date Yonatan Graves DO [address] [place] [address] PCP - General 02/01/25 Farida Ortega, FUNERAL LOCATION MANAGER [address] [place] [address] Referring Physician Gastroenterology 09/02/23 documented as of this encounter
--- OUTSIDE RECORDS SUMMARY | 2025-05-23 10:31 | XMS_ITS | Encounter Summary ---
Author Organization [facility] Address [address] [place] [address] Care Team Providers Care Side Splitter Name Role Phone Yonatan Graves DO Primary Care Provider Farida Ortega THERMOMETER TESTER Unavailable [phone] Cat Benavides RN Unavailable Unava ilable Source [...] release of HIV test results or diagnoses. [id number] Reason for Visit * Reason Comments Results Medication Dose Change Encounter Details Date Type Department Care Team (Late st Contact Info) Description 05/17/2025 Telephone [facility] Liver Transplant at [address] [address] Cat Benavides, KONSTANTIN Results; Medication Dose Change Social History Tobacco Use Types Packs/Day Years Used Date Smoking Tobacco: Former Cigarettes 0.3 1.2 0 07/22/2014 - 07/22/2015 Smokeless Tobacco: Never Alcohol Use Standard Drinks/Week Comments Not Currently 0 (1 standard drink = 0.6 oz pur e alcohol) [facility] Utilities Answer Date Recorded In [...] any time in the past 12 m [facility], were you homeless or living in a nursing home (including now)? No 04/19/2025 Yearly Questionnaire [...] Telephone Encounter - Cat Benavides RN - 05/20/2025 3:02 PM EST Labs reviewed by Dr. Yates. Changes made to the following medication regimen. Per Dr Yates: Increase FK to 6mg BID Chart updated with new Rx and sent to Pharmacy. Vidtelt message sent to Pt with changes and need for repeat labs. RN requested response to message to ensure it was received and changes were made. RN waiting for Pt response. * Telephone Encounter - Cat Benavides RN - 05/17/2025 5:06 PM EST Lab results from 05/17/25 reviewed. Cr 0.51 (from 0.40); BUN 16 (from 16). AST 20 (from 37) ALT 27 (from 51) Alk Phos 249 (from 402) 5.2 FK level Latest Reference Range & Units 05/17/25 10:14 Hep B Viral DNA2 IU/ML IU/mL Not Detected log 10 HBV as IU/mL log 10 IU/mL See Note International Units IU/mL Not Detected IU log10 log 10 IU/mL See Note HIV [id number] irq17djjq/mL See Note HIV-1 RNA by PCR copies/mL Not Detected PETH 16:0/18.1 (POPETH) Cutoff: 10 ng/mL <10 PETH 16:0/18.2 (PLPETH) Cutoff: 10 ng/mL <10 PEth Interpretation Negative. Latest Reference Range & Units 05/17/25 10:14 Magnesium 1.5 - 2.5 mg/dL 1.6 Current ISP: FK 4mg BID MMF 500mg BID Pred 20mg daily Will route to Txp Provider for further review and recommendations. documented in this encounter Plan of Treatment Not on file documented as of this encounter Visit Diagnoses Diagnosis S/P liver transplant (CMS-HCC) Immunosuppression (CMS-HCC) documented in this encounter Additional Health Concerns Assessment Noted Time PHQ-9 Depression Total Score: 13 025 2:00 PM EDT documented as of this encounter Care Teams Side Splitter Relationship Specialty Start Date End Date Yonatan Graves DO [address] [place] [address] PCP - General 02/01/25 Farida Ortega, THERMOMETER TESTER [address] [place] [address] Referring Physician Gastroenterology 09/02/23 Cat Benavides RN Txp Post Coordinator Windows Mobile Developer 05/02/25 documented as of this encounter
--- OUTSIDE RECORDS SUMMARY | 2025-05-23 10:31 | XMS_ITS | Encounter Summary ---
Author Organization [facility] Address [address] [place] [address] Care Team Providers Care Public Message Service Supervisor Name Role Phone Yonatan Graves Primary Care Provider Farida Ortega PIT WORKER POWER SHOVEL Unavailable [phone] Cat Benavides RN Unavailable Unava ilable Source [...] release of HIV test results or diagnoses. [id number] Health Encounter Details Date Type Department Care Team (Late st Contact Info) Description 05/18/[address] [facility] Liver Transplant at [address] [address] Quan Yates III, MD [address] [place] [phone] S/P liver transplant ([facility]-HCC) Social History Tobacco Use Types Packs/Day Years Used Date Smoking Tobacco: Former Cigarettes 0.3 1.2 0 07/22/2014 - 07/22/2015 Smokeless Tobacco: Never Alcohol Use Standard Drinks/Week Comments Not Currently 0 (1 standard drink = 0.6 oz pur e alcohol) [facility] Utilities Answer Date Recorded In the past 12 months has [employer], gas, oil, or water [employer] threatened to shut off services in your [...] any time in the past 12 m [facility], were you homeless or living in [...] Progress Notes * Ginna Mcnair MA - 05/18/2025 11:24 AM EST Pt states she is in need of refills of trazodone and ursodiol. Pt is wondering if she still needs to take the Ursodiol. Pt also states she spoke to CC KONSTANTIN Dave yesterday about gabapentin dose and states she would like to go back to 800 mg. Pt requests that refills be sent to the [facility] pharmacy today as she is out of the trazodone and Ursodiol. She also states the pharmacy will be closed tomorrow due to the holiday. Pt also requests CC KONSTANTIN Dave to return call to her to discuss all the medication changes. This MA attempted to gather more information on questions Pt has, but she stated she just wanted to discuss with Jolie. documented in this encounter Miscellaneous Notes * Telephone Encounter - Cat Benavides RN - 05/18/2025 11:48 AM EST RN discussed Pt's concerns with Dr Wilson. Dr Wilson agreeable to increase Korin to 600mg TID but wants to increase Korin in stages. Dr Wilson states we can stop the Jennifer and monitor alk phos and determine if we need to restart or not based of lab values. Dr Wilson gave verbal order for Trazodone 100mg QHS and Korin 600mg TID both for 30 days supply no refills. RN will order medications as instructed. RN will follow-up with Pt prior to phoning in Korin Rx to determine Pt's further needs. RN spoke to Ptwho wanted to discuss increasing the Korin dose but she said she wasn't sure if she would go back toher dose before txp or not. RN explained the sedating and respiratory effects all of the medications have and how we need to be cautious with the amount we put her one so we doesn't decrease her respi ratory drive. RN explained we want to step her up because 300 to 800 is a big increase so we will start at 600 then if needed can go to 800. Pt agreeable with plan. Pt states she did the Trazodone 100mg last night and she slept very well. Pt states the pharmacy is closed tomorrow and won't fill herOxy today because Dr Wilson dated the Rx 05/19. Pt states when talking to the pharmacy it was discove red Dr Wilson wrote the Rx for 4 day supply. Pt inquiring if that was correct or in error. RN explained the Rx defaults to a quantity of 28 for 7 days because we are limited to being able to order [address] Wilson increased the dose to 10 she missed increasing the quantity. RN followed up with Dr Wilson by phone. Dr Wilson thought she ordered the 10mg tablets #28 1 tab every 6 hours, when RN pointed out it was for the 5mg tablets Dr Wilson verified the quantity was incorrect. Dr Wilson is out of the office and requested RN follow up with Dr Daniel to rewrite the Rx for a 7 day supplyof 10mg every 6 hours. RN spoke to Dr Daniel by phone who was agreeable to rewrite Rx as he was part of the pain management discussion between RN and Dr Wilson Friday in clinic. RN will follow up with [facility] one RN notified the Oxy Rx has been sent in on the [facility] pharmacy has questions regarding duplicate Rx. documented in this encounter Plan of Treatment Not on file documented as of this encounter Visit Diagnoses Diagnosis S/P liver transplant (CMS-HCC) documented in this encounter Additional Health Concerns Assessment Noted Time PHQ-9 Depression Total Score: 13 11/04/ 025 2:00 PM EDT documented as of this encounter Care Teams Public Message Service Supervisor Relationship Specialty Start Date End Date Yonatan Graves DO [address] [place] [address] PCP - General 02/01/25 Farida Ortega, PIT WORKER POWER SHOVEL [address] [place] [address] Referring Physician Gastroenterology 09/02/23 Cat Benavides, RN Txp Post Coordinator Wood[employer] Reeds Cutter 05/02/25 documented as of this encounter
--- OUTSIDE RECORDS SUMMARY | 2025-05-23 10:32 | XMS_ITS | Encounter Summary ---
Author Organization [facility] Address [address] [place] [address] Care Team Providers Care Brine Tank Operator Name Role Phone Yonatan Graves DO Primary Care Provider Fariad Ortega EAR NOSE THROAT PHYSICIAN Unavailable Source Comments This information has been [...] release of HIV test results or diagnoses. [id number] Health Encounter Details Date Type Department Care Team (Late st Contact Info) Description 04/20/2025 Orders Only [facility] Liver Transplant at [address] [address] Quan Yates III, MD [address] [place] [phone] Social History Tobacco Use Types Packs/Day Years Used Date Smoking Tobacco: Former Cigarettes 0.3 1.2 0 07/22/2014 - 07/22/2015 Smokeless Tobacco: Never Alcohol Use Standard Drinks/Week Comments Not Currently 0 (1 standard drink = 0.6 oz pur e alcohol) [facility] Utilities Answer Date Recorded In the past 12 months has [email or web address] electric, gas, oil, or water company threatened [...] Vascular Question Answer Date of Assessment Author Gretchen lau Yes 04/20/2025 8:00 AM EDT Marylu Haddad RN Peripheral Vascular (WDL) X 04/20/2025 8:00 AM EDT Marylu Haddad RN * Question Answer Date of Assessment Author Anti-Embolism Devices Bilateral;Sequenti al compression devices, below knee 04/20/2025 2:00 PM EDT Marylu Haddad RN Anti-Embolism Intervention Declined 04/20/2025 2:00 PM EDT Marylu Haddad RN documented as of this encounter Plan of Treatment Not on file documented as of this encounter Procedures Procedure Name Priority Date/Time Associated Diagnosis Comments HOX - HLA CROSSMATCH REPORT Routine 04/20/2025 3:05 PM EDT documented in this encounter Results * Hox - HLA Crossmatch Report (04/20/2025 3:05 PM EDT) 04/20/2025 3:05 PM EDT us Quan Yates III, MD LAB BLOOD ORDERABLE S Final Result Performing Organization Address City/State/[facility] Co de Phone Number [facility] [address] [place] [address] documented in this encounter Visit Diagnoses Not on filedocumented in this encounter Additional Health Concerns Assessment Noted Time PHQ-9 Depression Total Score: 13 025 2:00 PM EDT documented as of this encounter Care Teams Brine Tank Operator Relationship Specialty Start Date End Date Yonatan Graves DO [address] [place] [address] PCP - General 02/01/25 Farida Ortega, HARLEEN [address] [place] [address] Referring Physician Gastroenterology 09/02/23 documented as of this encounter
--- OUTSIDE RECORDS SUMMARY | 2025-05-23 10:32 | XMS_ITS | Encounter Summary ---
Author Organization [facility] Address [address] [place] [address] Care Team Providers Care Student Financial Services Counselor Name Role Phone Yonatan Graves DO Primary Care Provider Farida Ortega MCAT TUTOR Unavailable [phone] Cat Benavides RN Unavailable Unava ilable Source [...] release of HIV test results or diagnoses. [id number] Reason for Visit * Reason Comments Transplant Review Encounter Details Date Type Department Care Team (Late st Contact Info) Description 04/19/2025 Pharmacy Services [facility] [address] [place] [phone] Josh Garcia, RosaD Social History Tobacco Use Types Packs/Day Years Used Date Smoking Tobacco: Former Cigarettes 0.3 1.2 0 07/22/2014 - 07/22/2015 Smokeless Tobacco: Never Alcohol Use Standard Drinks/Week Comments Not Currently 0 (1 standard drink = 0.6 oz pur e alcohol) [facility] Utilities Answer Date Recorded In [...] any time in the past 12 m [facility], were you homeless or living in a correction (including now)? No 04/19/2025 Yearly Questionnaire Answer [...] Author Compression boots No 05/03/2025 8:30 AM Julianne Hook RN Peripheral Vascular (WDL) X 05/03/2025 8:30 AM Julianne Hook RN * Question Answer Date of Assessment [...] Gomez RN documented as of this encounter Progress Notes * Josh Garcia, PharmD - 04/19/2025 12:05 PM EDT Transitions of Care Patient's prescriptions were sent to [facility] for a Transplant benefits review. Ms. Wade received a Liver Transplant on 04/18/25 at [facility]. The patient's discharge medications were sent to [facility] for anticipated discharge of 05/02/2025. The patient has an [employer] Medicare Advantage plan with Part B to cover the immunosuppressives. Currently, the patient's co-pay for all medications is listed below: Acetaminophen 325 mg - $4 Aspirin 81 mg - $4 Famotidine 20 mg - $2 Fluconazole 200mg - $8.50 Methocarbamol 500 mg - $3.31 Mycophenolate 250 mg - $14.32 Oystershell Calcium + Vit D - $4 Miralax Powder - $4 Prednisone - $0.74 Senna-docusate - $4 Sulfamethoxazole - Trimethoprim 400-80 mg - $0.63 Tacrolimus 1 mg - $42.69 Valganciclovir 450 mg - $32.73 Ms. Wade's total cost of discharge prescriptions is currently $124.92. This total is subject to change with the addition or change in any of the prescriptions sent to [facility]. A call was placed to Ms. Wade spouse to discuss total cost amount from above. Ms. Wade has no issues with the cost of medications. The patient will be informed that payment will need to be available by early afternoon on the day of discharge. Medication Discharge Service will deliver all medications that they are able to fill to patient's bedside prior to discharge from hospital. Transplant team will provide education to the patient priorto discharge from the hospital. The patient has been referred to the [facility] Transplant Team. The patient should visit Medication Access for assistance if problems arise with the prescriptions. If questions arise regarding discharge medications, please call [phone]. documented in this encounter Plan of Treatment Not on file documented as of this encounter Visit Diagnoses Not on filedocumented in this encounter Additional Health Concerns Assessment Noted Time PHQ-9 Depression Total Score: 13 11/04/ 025 2:00 PM EDT documented as of this encounter Care Teams Student Financial Services Counselor Relationship Specialty Start Date End Date Yonatan Graves DO [address] [place] [address] PCP - General 02/01/25 Farida Ortega, HARLEEN [address] [place] [address] Referring Physician Gastroenterology 09/02/23 Cat Benavides, KONSTANTIN Txp Post Coordinator Corset Maker 05/02/25 documented as of this encounter
--- OUTSIDE RECORDS SUMMARY | 2025-05-23 10:32 | XMS_ITS | Encounter Summary ---
Author Organization [facility] Address [address] [place] [address] Care Team Providers Care Chief Privacy Officer Name Role Phone Yonatan Grvaes DO Primary Care Provider Farida Ortega SIX PACK LOADER OPERATOR Unavailable [phone] Source Comments This information has been disclosed [...] release of HIV test results or diagnoses. [id number] Health Reason for Visit * Reason Comments Prior Authorization Encounter Details Date Type Department Care Team (Late st Contact Info) Description 04/19/2025 Pharmacy Services [facility] [address] [place] [phone] Josh Garcia, PharmD Social History Tobacco Use Types Packs/Day Years Used Date Smoking Tobacco: Former Cigarettes 0.3 1.2 0 07/22/2014 - 07/22/2015 Smokeless Tobacco: Never Alcohol Use Standard Drinks/Week Comments Not Currently 0 (1 standard drink = 0.6 oz pur e alcohol) [facility] Utilities Answer Date Recorded In [...] any time in the past 12 m [facility], were you homeless or living in a [...] Date of Assessment Author Compression boots Yes 04/20/2025 8:00 AM EDT Marylu Haddad RN Peripheral Vascular (WDL) X 04/20/2025 8:00 AM EDT Marylu Haddad RN * Question Answer Date of Assessment Author Anti-Embolism Devices Bilateral;Sequenti al compression devices, below knee 04/20/2025 8:00 AM EDT Marylu Haddad RN Anti-Embolism Intervention On 04/20/2025 8:00 AM EDT Marylu Haddad RN documented as of this encounter Progress Notes * Josh Garcia PharmD - 04/19/2025 12:25 PM EDT Prior Authorization Services Drug Name/strength: Mycophenolate 250 mg capsule (B vs D determination) Qty/Day-Supply: 120 caps (30 days) Provider: Yane Wheatley Insurance: Sammie Case ID# / CMM [place]: NA Submission Method: Fax Submission status: Submitted Documentation Used: Diagnosis Code and Chart Notes Dispensing Pharmacy: [facility] Discharge Pharmacy Prior Authorization Determination: Approved - [place] REF #: [id number] EXP DATE: 04/19/26 Josh Garcia PharmD, [facility] Transitions of Care Pharmacist [phone] documented in this encounter Plan of Treatment Not on file documented as of this encounter Visit Diagnoses Not on filedocumented in this encounter Additional Health Concerns Assessment Noted Time PHQ-9 Depression Total Score: 13 0515/ 025 2:00 PM EDT documented as of this encounter Care Teams Chief Privacy Officer Relationship Specialty Start Date End Date Yonatan Graves DO [address] [place] [address] PCP - General 02/01/25 Farida Ortega, SIX PACK LOADER OPERATOR [address] [place] [address] Referring Physician Gastroenterology 09/02/23 documented as of this encounter
--- OUTSIDE RECORDS SUMMARY | 2025-05-23 10:32 | XMS_ITS | Encounter Summary ---
Author Organization [facility] Address [address] [place] [address] Care Team Providers Care Change Advisor Name Role Phone Yonatan Graves DO Primary Care Provider Farida Ortega DIAMOND SAW OPERATOR Unavailable [phone] Source Comments This information has been disclosed [...] release of HIV test results or diagnoses. [id number] Health Encounter Details Date Type Department Care Team (Late st Contact Info) Description 04/19/2025 Telephone [facility] Liver Transplant at [address] [place] [phone] Pao Pennington, RN Social History Tobacco Use Types Packs/Day Years Used Date Smoking Tobacco: Former Cigarettes 0.3 1.2 0 07/22/2014 - 07/22/2015 Smokeless Tobacco: Never Alcohol Use Standard Drinks/Week Comments Not Currently 0 (1 standard drink = 0.6 oz pur e alcohol) [facility] Utilities Answer Date Recorded In the [...] were you homeless or living in a custodial (including now)? No 04/19/2025 Yearly Questionnaire Answer [...] Date of Assessment Author Compression boots Yes 04/19/2025 8:00 AM Katharine Blakely RN Peripheral Vascular (WDL) X 04/19/2025 8:00 AM HARITHAT Katharine Macias RN * Question Answer Date of Assessment Author Anti-Embolism Devices Bilateral;Sequenti al compression devices, below knee 04/19/2025 8:00 AM Katharine Blakely RN Anti-Embolism Intervention On 04/19/2025 8:00 AM EDT Katharine Macias RN documented as of this encounter Progress Notes * Pao Pennington RN - 04/19/2025 3:23 PM EDT Outgoing call placed to Mindy Ledezma spouse to schedule transplant education since he was identified as the primary cpa tax upon discharge. No answer, left a message with a callback number. documented in this encounter Plan of Treatment Not on file documented as of this encounter Visit Diagnoses Not on filedocumented in this encounter Additional Health Concerns Assessment Noted Time PHQ-9 Depression Total Score: 13 025 2:00 PM EDT documented as of this encounter Care Teams Change Advisor Relationship Specialty Start Date End Date Yonatan Graves DO [address] [place] [address] PCP - General 02/01/25 Farida Ortega, HARLEEN [address] [place] [address] Referring Physician Gastroenterology 09/02/23 documented as of this encounter
--- OUTSIDE RECORDS SUMMARY | 2025-05-23 10:32 | XMS_ITS | Encounter Summary ---
Author Organization [facility] Address [address] [place] [address] Care Team Providers Care Grinder Operator External Tool Name Role Phone Yonatan Graves DO Primary Care Provider Farida Ortega LEVER OPERATOR Unavailable [phone] Source Comments This information has been disclosed [...] release of HIV test results or diagnoses. [id number] Health Reason for Visit * Reason Comments Prior Authorization Encounter Details Date Type Department Care Team (Late st Contact Info) Description 04/19/2025 Pharmacy Services [facility] Discharge Pharmacy [address] [place] [phone] Josh Garcia, PharmD Social History Tobacco Use Types Packs/Day Years Used Date Smoking Tobacco: Former Cigarettes 0.3 1.2 0 07/22/2014 - 07/22/2015 Smokeless Tobacco: Never Alcohol Use Standard Drinks/Week Comments Not Currently 0 (1 standard drink = 0.6 oz pur e alcohol) [facility] Utilities Answer Date Recorded In the past [...] time in the past 12 m [facility], were you homeless or living in a chcf (including now)? No 04/19/2025 Yearly Questionnaire Answer [...] Notes * Josh Garcia PharmD - 04/19/2025 12:28 PM EDT Prior Authorization Services Drug Name/strength: Prednisone 5 mg tablet (B vs D determination) Qty/Day-Supply: 120 tabs (30 days) Provider: Yane Wheatley Insurance: Sammie Case ID# / CMM [place]: NA Submission Method: Fax Submission status: Submitted Documentation Used: Diagnosis Code and Chart Notes Dispensing Pharmacy: [facility] Discharge Pharmacy Prior Authorization Determination: Approved - [place] REF #: [id number] EXP DATE: 04/19/26 Josh Garcia PharmD, [facility] Transitions of Care Pharmacist [phone] documented in this encounter Plan of Treatment Not on file documented as of this encounter Visit Diagnoses Not on filedocumented in this encounter Additional Health Concerns Assessment Noted Time PHQ-9 Depression Total Score: 13 0515/ 025 2:00 PM EDT documented as of this encounter Care Teams Grinder Operator External Tool Relationship Specialty Start Date End Date Yonatan Graves DO [address] [place] [address] PCP - General 02/01/25 Farida Ortega, LEVER OPERATOR [address] [place] [address] Referring Physician Gastroenterology 09/02/23 documented as of this encounter
--- OUTSIDE RECORDS SUMMARY | 2025-05-23 10:32 | XMS_ITS | Encounter Summary ---
Author Organization [facility] Address [address] [place] [address] Care Team Providers Care Laundry Sorter Name Role Phone Yonatan Graves DO Primary Care Provider Farida Ortega DIRECTOR OF PSYCHOLOGY Unavailable [phone] Source Comments This information has been disclosed [...] release of HIV test results or diagnoses. [id number] Health Reason for Visit * Reason Comments Prior Authorization Encounter Details Date Type Department Care Team (Late st Contact Info) Description 04/19/2025 Pharmacy Services [facility] [address] [place] [phone] Josh Garcia, PharmD Social History Tobacco Use Types Packs/Day Years Used Date Smoking Tobacco: Former Cigarettes 0.3 1.2 0 07/22/2014 - 07/22/2015 Smokeless Tobacco: Never Alcohol Use Standard Drinks/Week Comments Not Currently 0 (1 standard drink = 0.6 oz pur e alcohol) [facility] Utilities Answer Date Recorded In the [...] any time in the past 12 m [facility], were you homeless or living [...] Notes * Josh Garcia PharmD - 04/19/2025 12:27 PM EDT Prior Authorization Services Drug Name/strength: Tacrolimus 1 mg capsule (B vs D determination) Qty/Day-Supply: 600 caps (30 days) Provider: Yane Wheatley Insurance: Sammie Case ID# / CMM Freeman: NA Submission Method: Fax Submission status: Submitted Documentation Used: Diagnosis Code and Chart Notes Dispensing Pharmacy: [facility] Discharge Pharmacy Prior Authorization Determination: Approved - [place] REF #: [id number] EXP DATE: 04/19/26 Josh Garcia PharmD, [facility] Transitions of Care Pharmacist [phone] documented in this encounter Plan of Treatment Not on file documented as of this encounter Visit Diagnoses Not on filedocumented in this encounter Additional Health Concerns Assessment Noted Time PHQ-9 Depression Total Score: 13 0515/2 025 2:00 PM EDT documented as of this encounter Care Teams Laundry Sorter Relationship Specialty Start Date End Date Yonatan Graves DO [address] [place] [address] PCP - General 02/01/25 Farida Ortega, DIRECTOR OF PSYCHOLOGY [address] [place] [address] Referring Physician Gastroenterology 09/02/23 documented as of this encounter
--- OUTSIDE RECORDS SUMMARY | 2025-05-23 10:32 | XMS_ITS | Encounter Summary ---
Author Organization [facility] Address [address] [place] [address] Care Team Providers Care Catapult And Arresting Gear Officer Name Role Phone Yonatan Graves DO Primary Care Provider Farida Ortega GYRO COMPASS TESTER Unavailable [phone] Source Comments This information has been disclosed [...] release of HIV test results or diagnoses. [id number] Health Encounter Details Date Type Department Care Team (Late st Contact Info) Description 04/21/2025 Orders Only [facility] Liver Transplant at [address] [address] Quan Yates III, MD [address] [place] [phone] Social History Tobacco Use Types Packs/Day Years Used Date Smoking Tobacco: Former Cigarettes 0.3 1.2 0 07/22/2014 - 07/22/2015 Smokeless Tobacco: Never Alcohol Use Standard Drinks/Week Comments Not Currently 0 (1 standard drink = 0.6 oz pur e alcohol) [facility] Utilities Answer Date Recorded In the past 12 months has [employer], gas, oil, or water company threatened [...] any time in the past 12 m [facility], were you homeless or living [...] Date of Assessment Author Compression boots Yes 04/21/2025 11:00 AM EDT Jc Terrazas RN Peripheral Vascular (WDL) X 04/21/2025 11:0 0 AM EDT cJ Terrazas RN * Question Answer Date of Assessment Author Anti-Embolism Devices Bilateral;Sequenti al compression devices, below knee 04/21/2025 8:00 AM EDT Yaima Cohen RN Anti-Embolism Intervention Declined 04/21/2025 8:00 AM EDT Yaima Cohen RN documented as of this encounter Plan of Treatment Not on file documented as of this encounter Procedures Procedure Name Priority Date/Time Associated Diagnosis Comments HOX - HLA CROSSMATCH REPORT Routine 04/21/2025 2:18 PM EDT documented in this encounter Results * Hox - HLA Crossmatch Report (04/21/2025 2:18 PM EDT) 04/21/2025 2:18 PM EDT us Quan Yates III, MD LAB BLOOD ORDERABLE S Final Result Performing Organization Address City/State/[facility] Co de Phone Number [facility] [address] [place] [address] documented in this encounter Visit Diagnoses Not on filedocumented in this encounter Additional Health Concerns Assessment Noted Time PHQ-9 Depression Total Score: 13 11/04/2 025 2:00 PM EDT documented as of this encounter Care Teams Catapult And Arresting Gear Officer Relationship Specialty Start Date End Date Yonatan Graves DO [address] [place] [address] PCP - General 02/01/25 Farida Ortega, HARLEEN [address] [place] [address] Referring Physician Gastroenterology 09/02/23 documented as of this encounter
--- OUTSIDE RECORDS SUMMARY | 2025-05-23 10:32 | XMS_ITS | Clinical Summary ---
Author Organization [facility] Address [address] [place] [address] Care Team Providers Care Donor Recruitment Manager Name Role Phone Kierra Guajardo MD [...] Day. 4 Active fluconazole (DIFLUCAN) 150 MG tabletIndicatio ns:Yeast infection Take 1 tablet by mouth As Needed (yeast). Take one tablet now and repeat in 3 days 2 tablet 1 5 Active Active Problems Problem Noted Date Diagnosed [...] coolers daily for several years [facility] Utilities Answer Date Recorded In the past 12 months has th e [employer], gas, oil, or water [employer] threatened to shut off services in your [...] medical care, and heating? Patient declined 08/05/2023 [facility] - Occupational Stress Questionnaire Answer [...] GED or equivalent No 08/05/2023 Preferred Language Ivorian 08/05/2023 PHQ-2 Answer Date Recorded Retired PHQ-9: [...] IF ASCUS (CARMEN,COR,MAD) (11/25/2024 2:03 PM EDT) Pathologist [facility] Reference Lab Report [facility] [address] [place] [address] or [phone] Cristóbal Calvo M.D., Conveyor Belt Repairer PATIENT NAME LABORATORY NO. Yanet WADE TATIANA [id number] AGE SEX SSN CLIENT REF # [id number] 34 1990 F [id number] Miguel A DEJESUS REQUESTING Leslie [place] [address] [place] DATE COLLECTED DATE RECEIVED DATE REPORTED 11/25/2024 11/25/202411/26/2024 ThinPrep Pap with [employer] [facility] DIAGNOSIS: Negative for intraepithelial lesion or malignancy Multiple factors can influence accuracy of Pap tests; therefore, screening at regular intervals is necessary for early cancer detection. COMMENT: Benign cellular changes associated with inflammation are present. SPECIMEN ADEQUACY: SATISFACTORY FOR EVALUATION Transformation zone is absent or insufficient. SOURCE OF SPECIMEN: CERVICAL SLIDES: 1 CLINICAL HISTORY: Women's annual routine gynecological examination SAFETY SEALER: CARRIE MORENO (ASCP) CPT CODES: [id number] 11/26/2024 9:52 AM EDT [facility] ThinPrep Vial Cervix uteri structure / Unknown Collection / Unknown 11/25/2024 2:03 PM EDT 11/25/2024 2:03 PM EDT Pao Hanley GROCERY STORE MANAGER PATHOLOGY/CYTOLOGY ORDERA BLES Final Result [facility]
[address] [place] [address], * (ABNORMAL) Hepatitis Panel, Acute (08/02/2023 4:57 AM EST) Hepatitis B Surface Ag Non-Reacti ve Non-Reacti ve 08/02/2023 6:38 AM EST [facility] Hep A IgM Non-Reacti ve Non-Reacti ve 08/02/2023 6:38 AM EST [facility] Hep B C IgM Non-Reacti ve Non-Reacti ve 08/02/2023 6:38 AM EST [facility] Hepatitis C Ab Reactive(A ) Non-Reacti ve 08/02/2023 6:38 AM EST [facility] Blood Venipuncture / Unknown 08/02/2023 4:57 AM EST 08/02/2023 5:15 AM EST Narrative [facility] - 08/02/2023 6:38 AM EST Results may be falsely decreased if patient taking Biotin. Jasmin Crooks MD LAB BLOOD ORDERABLES Final Result [facility]
[address] [place] [address], [place] [phone] from Last 3 Months or Most Recently Relevant to Health Maintenance Insurance [employer] H[employer] Advance Directives * CPR (Attempt to Resuscitate) (Latest Code Status on File) Date Activated Date Inactivated Comments 08/01/2023 11:18 PM 08/05/2023 4:05 PM Question Answer Comments Code Status (Patient has no pulse and is not breathing): CPR (Attempt to Resuscitate) Medical Interventions (Patie nt has pulse or is breathing): Full Support Care Teams Donor Recruitment Manager Relationship Specialty Start Date End Date Kierra Guajardo MD [address] [place] [address] PCP - General Internal Medicine 10/23/23
--- OUTSIDE RECORDS SUMMARY | 2025-05-23 10:32 | XMS_ITS | Encounter Summary ---
Author Organization [facility] Address [address] [place] [address] Care Team Providers Care Wood Shop Teacher Name Role Phone Yonatan Graves DO Primary Care Provider Farida Ortega CROWN POUNCER Unavailable [phone] Cat Benavides RN Unavailable Unava ilable Source [...] release of HIV test results or diagnoses. [id number] Health Encounter Details Date Type Department Care Team (Late st Contact Info) Description 04/19/2025 Chart Note [facility] Liver Transplant at [address] [address] Poa Pennington, RN I introduced myself as inpatient liver hospice spiritual care coordinator, explained Social History Tobacco Use Types Packs/Day Years Used Date Smoking Tobacco: Former Cigarettes 0.3 1.2 0 07/22/2014 - 07/22/2015 Smokeless Tobacco: Never Alcohol Use Standard Drinks/Week Comments Not Currently 0 (1 standard drink = 0.6 oz pur e alcohol) [facility] Utilities Answer Date Recorded In [...] in the past 12 m [facility], were you homeless or living in [...] Notes * Pao Pennington RN - 04/19/2025 8:26 AM EDT I introduced myself as inpatient liver hospice spiritual care coordinator, explained role and provided my contact information. Initial Post-Transplant Education and discharge planning discussed with patient and their caregiver/support persons, Darien (spouse). Target discharge on 04/25. Communication provided to the multidisciplinary care team. Patient lives with Darien and children who will be the primary caregiver and it was confirmed that additional support will be provided by family and friends. Patient and caregiver/support person(s) were provided with an overview of post-transplant care and the discharge process. A Post liver Transplant folder, and the link to Living with your Transplant were provided. I encouraged them all to review the information before our education session. I plan to meet with patient and ca regiver team for additional transplant education and reinforcement on 04/21 @ 1100. Mindy Wade has Jet on her phone already, instructions provided for video visits. Educationalmaterials were emailed to Darien. Additionally, a video regarding the process for packing their pillbox at discharge emailed to the caregiver. They were highly encouraged to watch the video prior to discharge. documented in this encounter Plan of Treatment Not on file documented as of this encounter Visit Diagnoses Not on filedocumented in this encounter Additional Health Concerns Assessment Noted Time PHQ-9 Depression Total Score: 13 025 2:00 PM EDT documented as of this encounter Care Teams Wood Shop Teacher Relationship Specialty Start Date End Date Yonatan Graves DO [address] [place] [address] PCP - General 02/01/25 Farida Ortega, HARLEEN [address] [place] [address] Referring Physician Gastroenterology 09/02/23 Cat Benavides, KONSTANTIN Txp Post Coordinator Loan Documents Closer 05/02/25 documented as of this encounter
--- OUTSIDE RECORDS SUMMARY | 2025-05-23 10:32 | XMS_ITS | Clinical Summary ---
Author Organization [facility] Address [address] [place] [address] Care Team Providers Care Office Support Clerk Name Role Phone Yonatan Graves Primary Care Provider Farida rOtega SONAR SUBSYSTEM EQUIPMENT OPERATOR Unavailable [phone] Cat Benavides RN Unavailable Unava ilable Source [...] therelease of HIV test results or diagnoses. [id number] Allergies No known active allergies Medications ondansetron (ZOFRAN-ODT) 8 MG disintegrating tablet Take 1 tablet (8 mg total) by mouth every 8 hours as needed for Nausea. 20 tablet 025 Active fluconazole (DIFLUCAN) 200 MG tablet Take 1 tablet (200 mg total) by mouth daily for 30 days. 30 tablet 05/03/20 25 3:44 PM EST 025 2024 Active calcium-vitamin D 500 mg-5 mcg (200 unit) per tablet Take 1 tablet by mouth 2 times a day with meals. 60 tablet 2 05/03/20 25 3:44 PM EST 025 Active sulfamethoxazole -trimethoprim (BACTRIM) 400-80 mg per tablet Take 1 tablet by mouth daily. 30 tablet 2 05/03/20 25 3:44 PM EST 10/28/2 025 Active mycophenolate (CELLCEPT) 250 mg capsule Take 2 capsules (500 mg total) by mouth 2 times a day. 120 capsule 5 05/03/20 3:44 PM EST Active valGANciclovir (VALCYTE) 450 mg tablet Take 1 tablet (450 mg total) by mouth daily. 30 tablet 2 05/03/20 3:44 PM EST Active senna-docusate (SENNOSIDES-DOCU SATE SODIUM) 8.6-50 mg per tablet Take 1 tablet by mouth at bedtime as needed for Constipation. 30 tablet 05/03/20 3:44 PM EST Active polyethylene glycol (GLYCOLAX) 17 gram/dose powder Mix 1 capful (17 g) in 8 oz of liquid and drink by mouth daily as needed (Constipation). 238 g 05/03/20 3:44 PM EST Active acetaminophen (TYLENOL) 325 MG tablet Take 3 tablets (975 mg total) by mouth every 8 hours. 200 tablet 05/03/20 3:44 PM EST Active naloxone (NARCAN) 4 mg/actuation [place] Apply 1 spray in one nostril if needed. Call 911. May repeat dose in other nostril if no response in 3 minutes. 2 each 1 Active ursodioL (ACTIGALL) 300 mg capsule Take 1 capsule (300 mg total) by mouth 2 times a day. 60 capsule 05/03/20 3:44 PM EST Active methocarbamoL (ROBAXIN) 500 MG tablet Take 2 tablets (1,000 mg total) by mouth 3 times a day. 180 tablet 05/03/20 3:44 PM EST Active pantoprazole (PROTONIX) 40 MG tablet Take 1 tablet (40 mg total) by mouth daily. 60 tablet 05/03/20 3:44 PM EST Active lidocaine (LIDODERM) 5 %Indications:Lorelei er replaced by transplant ([facility]),Postop erative pain Place 2 patches onto the skin daily. Apply patch for 12 hours and then remove patch and leave off for 12 hours. 30 patch Active predniSONE (DELTASONE) 5 MG tablet Take 3 tablets (15 mg total) by mouth daily. Active traZODone (DESYREL) 50 MG tablet Take 2 tablets (100 mg total) by mouth at bedtime for 30 days. 60 tablet 025 2024 Active gabapentin (NEURONTIN) 600 MG tabletIndication s:postoperative acute pain Take 1 tablet (600 mg total) by mouth 3 times a day. Indications: postoperative acute pain 90 tablet Active aspirin 81 MG chewable tablet Chew 1 tablet (81 mg total) by mouth daily. 30 tablet 11 Active oxyCODONE (ROXICODONE) 5 MG immediate release tabletIndication s:End-stage liver disease (CMS-HCC) Take 2 tablets (10 mg total) by mouth every 6 hours as needed for Pain for up to 7 days. 56 tablet 2024 Active tacrolimus (PROGRAF) 1 MG capsuleIndicatio ns:S/P liver transplant (CMS-HCC),Immuno suppression (CMS-HCC) Take 6 capsules (6 mg total) by mouth 2 times a day. 360 capsule 5 Active gabapentin (NEURONTIN) 800 MG tablet Take 1 tablet (800 mg total) by mouth 3 times a day. 2024 Discontinued(S top Taking at Discharge) furosemide (LASIX) 20 MG tablet TAKE 3 TABLETS(60 MG) BY MOUTH TWICE DAILY 540 tablet 1 025 2024 Discontinued(S top Taking at Discharge) carvediloL (COREG) 3.125 MG tablet Take 1 tablet (3.125 mg total) by mouth 2 times a day with meals. 180 tablet 1 025 2024 Discontinued(S top Taking at Discharge) aspirin 81 MG chewable tablet Chew 1 tablet (81 mg total) by mouth daily. 30 tablet 11 05/03/20 3:44 PM EST 2024 Discontinued(R efill / Reorder) predniSONE (DELTASONE) 5 MG tablet Take 4 tablets (20 mg total) by mouth daily. 120 tablet 2 05/03/20 3:44 PM EST 2024 Discontinued tacrolimus (PROGRAF) 1 MG capsule Take 10 capsules (10 mg total) by mouth 2 times a day. 600 capsule 5 2024 Discontinued famotidine (PEPCID) 20 MG tablet Take 1 tablet (20 mg total) by mouth 2 times a day. 60 tablet 2 2024 Discontinued(S top Taking at Discharge) enoxaparin (LOVENOX) 40 mg/0.4 mL Syrg Inject 0.4 mLs (40 mg total) subcutaneously daily. 12 mL 2024 Discontinued(S top Taking at Discharge) pregabalin (LYRICA) 100 MG capsuleIndicatio ns:Living related donor renal transplant Take 1 capsule (100 mg total) by mouth 2 times a day for 30 days. 60 capsule 05/03/20 3:44 PM EST 2024 Discontinued(T herapy Completed / No Longer Needed) traZODone (DESYREL) 50 MG tablet Take 1 tablet (50 mg total) by mouth at bedtime for 30 days. 30 tablet 05/03/20 3:44 PM EST 2024 Discontinued pantoprazole (PROTONIX) 40 MG tablet Take 1 tablet (40 mg total) by mouth 2 times a day. 60 tablet 2024 Discontinued melatonin 3 mg Tab Take 1 tablet (3 mg total) by mouth at bedtime. 30 tablet 05/03/20 3:44 PM EST 2024 Discontinued lidocaine (LIDODERM) 5 % Place 2 patches onto the skin daily. Apply patch for 12 hours and then remove patch and leave off for 12 hours. 30 patch 2024 Discontinued(R efill / Reorder) oxyCODONE (ROXICODONE) 5 MG immediate release tabletIndication s:End-stage liver disease (CMS-HCC) Take 2 tablets (10 mg total) by mouth every 6 hours as needed for Pain for up to 7 days. 56 tablet 2024 tacrolimus (PROGRAF) 1 MG capsule Take 3 capsules (3 mg total) by mouth every morning AND 2 capsules (2 mg total) at bedtime. 600 capsule 5 05/03/20 3:44 PM EST 2024 Discontinued oxyCODONE (ROXICODONE) 5 MG immediate release tabletIndication s:Living related donor renal transplant,Alcoh olic cirrhosis of liver with ascites (CMS-HCC) Take 2 tablets (10 mg total) by mouth every 6 hours as needed for Pain for up to 7 days. 56 tablet 05/03/20 3:44 PM EST 2024 oxyCODONE (ROXICODONE) 5 MG immediate release tabletIndication s:End-stage liver disease (CMS-HCC) Take 3 tablets (15 mg total) by mouth every 4 hours as needed for Pain for up to 7 days. 126 tablet 2024 Discontinued(R efill / Reorder) tacrolimus (PROGRAF) 1 MG capsule Take 2 capsules (2 mg total) by mouth every morning AND 3 capsules (3 mg total) at bedtime. 150 capsule 5 2024 Discontinued gabapentin (NEURONTIN) 300 MG capsuleIndicatio ns:Neuropathic Pain Take 1 capsule (300 mg total) by mouth 3 times a day for 30 days. Indications: Neuropathic Pain 90 capsule 2024 Discontinued(R efill / Reorder) tacrolimus (PROGRAF) 1 MG capsuleIndicatio ns:S/P liver transplant (CMS-HCC),Immuno suppression (CMS-HCC) Take 4 capsules (4 mg total) by mouth 2 times a day. 240 capsule 5 025 2024 Discontinued oxyCODONE (ROXICODONE) 5 MG immediate release tabletIndication s:End-stage liver disease (CMS-HCC) Take 3 tablets (15 mg total) by mouth every 8 hours as needed for Pain for up to 7 days. 63 tablet 025 2024 Discontinued melatonin 3 mg Tab Take 3 tablets (9 mg total) by mouth at bedtime. 90 tablet 1 025 2024 Discontinued(T herapy Completed / No Longer Needed) traZODone (DESYREL) 50 MG tablet Take 2 tablets (100 mg total) by mouth at bedtime for 30 days. 025 2024 Discontinued(R efill / Reorder) oxyCODONE (ROXICODONE) 5 MG immediate release tabletIndication s:End-stage liver disease (CMS-HCC) Take 2 tablets (10 mg total) by mouth every 6 hours as needed for Pain for up to 7 days. 28 tablet 2024 Discontinued gabapentin (NEURONTIN) 300 MG capsuleIndicatio ns:Neuropathic Pain Take 2 capsules (600 mg total) by mouth 3 times a day for 30 days. Indications: Neuropathic Pain 180 capsule 025 2024 Discontinued oxyCODONE (ROXICODONE) 5 MG immediate release tabletIndication s:End-stage liver disease (CMS-HCC) Take 2 tablets (10 mg total) by mouth every 6 hours as needed for Pain for up to 7 days. 56 tablet 025 2024 Discontinued Active Problems Problem Noted Date Diagnosed Date Bite 03/25/2025 Contusion of rib 03/25/2025 Cough 03/25/2025 Elevated bilirubin 03/25/2025 Exposure to COVID-19 virus 03/25/2025 Low back pain 03/25/2025 Strep throat exposure 03/25/2025 Varicose veins of other specified sites 03/25/20 25 Immunosuppression 12/21/2024 Jaundice 12/17/2024 Fatigue 12/17/2024 High risk surgery, pre-operative cardiovascular examination 12/14/2024 Alcoholic cirrhosis of liver with ascites 2024 Alcohol use disorder, severe, dependence 024 Hyponatremia 08/05/2023 Chemical dependency 08/01/2023 Acute bacterial bronchitis 07/03/2023 Asthma 07/03/2023 Finger sprain 07/03/2023 Shingles 07/03/2023 Viral syndrome 07/03/2023 Other disorders of bilirubin metabolism 04/10/20 23 Cyst of kidney, acquired 04/08/2023 Esophageal varices without bleeding 04/08/2023 Essential (primary) hypertension 04/08/2023 Splenomegaly, not elsewhere classified Hypokalemia 02/19/2023 Disease of gallbladder, unspecified 01/01/2023 Lesion of liver 01/01/2023 Encounter for pre-transplant evaluation for liver transplant 11/02/2022 Other ascites 11/02/2022 Other specified abnormal findings of blood chemi stry 11/02/2022 Alcohol use 11/02/2022 Disease of stomach and duodenum, unspecified 09/2022 Other diseases of stomach and duodenum Cholelithiasis without obstruction 10/15/2022 Nausea 10/01/2022 Strep throat 09/20/2022 End-stage liver disease 09/12/2022 Portal hypertension 09/12/2022 Hepatitis C virus infection 08/19/2022 High risk due to smoking 11/09/2015 Opiate dependence, continuous 11/09/2015 New onset seizure 07/12/2015 Encounters Date Type Department Care Team Description 05/23/2025 Telephone [facility] Liver Transplant at [address] [phone] Nina Britton MA 05/18/2025 Refill [facility] Kidney Transplant at [address] [phone] Yane Wheatley, SANTOSH 05/18/2025 Refill [facility] Liver Transplant at [address] [phone] Quan Yates III, MD S/P liver transplant ([facility]) 05/17/2025 9:00 AM EST Office Visit [facility] Liver Transplant at [address] [phone] Unknown, Attending Provider Stephanie Wilson MD S/P liver transplant ([facility]) (Primary Dx); End-stage liver disease ([facility]); Immunosuppressive management encounter following liver transplant ([facility]) 05/17/2025 Telephone [facility] Liver Transplant at [address] [phone] Kennedy, Cat Naila, RN Results; Medication Dose Change 05/16/2025 Orders Only [facility] Liver Transplant at [address] [place] [phone] Cat Benavides, KONSTANTIN S/P liver transplant (CMS-HCC) (Primary Dx); Immunosuppression (CMS-HCC); Viral disease exposure; Low magnesium level; Healthcare maintenance; Alcohol use 05/13/2025 Telephone [facility] Liver Transplant at [address] [place] [phone] Cat Benavides, RN Results 05/13/2025 Chart Note [facility] Liver Transplant at [address] [place] [phone] Nina Britton MA 05/13/2025 Telephone [facility] Liver Transplant at [address] [place] [address] Nina Britton MA 05/13/2025 Telephone [facility] Liver Transplant at [address] [place] [phone] Cat Benavides, angledozer operator Only 05/13/2025 Telephone [facility] [address] [place], [place] [phone] Naila Rajput [facility] 05/13/2025 Orders Only [facility] Liver Transplant at [address] [place] [phone] Jose Daniel MD End-stage liver disease ([facility]) 05/12/2025 Telephone [facility] Liver Transplant at [address] [place] [phone] Cat Benavides, angledozer operator Only 05/11/2025 Telephone [facility] Liver Transplant at [address] [place] [phone] Cat Benavides, KONSTANTIN Results; Medication Dose Change 05/10/2025 8:20 AM EST Office Visit [facility] Liver Transplant at [address] [phone] Jose Daniel MD S/P liver transplant ([facility]) (Primary Dx); Immunosuppression ([facility]); Postoperative pain 05/10/2025 Nutrition [facility] Kidney Transplant at [address] [phone] Yonatan Sarmiento, RD 05/06/2025 Telephone [facility] Liver Transplant at [address] [phone] Cat Benavides RN 05/06/2025 Telephone [facility] Liver Transplant at [address] [phone] Nina Britton MA 05/05/2025 Telephone [facility] Liver Transplant at [address] [phone] Tresa Reilly MA 05/04/2025 Chart Note [facility] Liver Transplant at [address] [phone] Tran Storm MA Received Prior Authorization via fax for Lidocaine Patches. 05/04/2025 Orders Only [facility] Liver Transplant at [address] [phone] Cat Benavides, KONSTANTIN Liver replaced by transplant ([facility]) (Primary Dx); Postoperative pain 05/03/2025 Orders Only [facility] Transplant Hepatobiliary at [address] [phone] Quan Yates III, MD End-stage liver disease (CMS-HCC) (Primary Dx) 05/03/2025 Chart Note [facility] [address] [place] [phone] Tresa Beltran, RosaD Liver Transplant Pharmacy Discharge Note 05/03/2025 Orders Only [facility] Liver Transplant at [address] [place] [address] Quan Yates III, MD Liver replaced by transplant ([facility]) (Primary Dx); Immunosuppressive management encounter following liver transplant ([facility]) 04/23/2025 9:18 AM EDT Anesthesia Event [facility] [address] [facility] [place] [phone] Catracho Hui MD 04/23/2025 9:00 AM EDT - 04/23/2025 12:13 PM EDT Surgery [facility] [address] [facility] [place] [phone] Alejandra Wilson MD EMERGENCYEXPLORATORY LAP, REVISION OF JJ ANASTOMSIS, GASTRIC LAVAGE 04/23/2025 5:45 AM EDT - 04/23/2025 6:27 AM EDT Surgery [facility] ENDOSCOPY [address] [place] [address] Kelsey Moyer MD PUSH ENTEROSCOPY 04/21/2025 Education Chart Note [facility] Liver Transplant at [address] [place] [phone] Pao Pennington, RN 04/21/2025 Orders Only [facility] Liver Transplant [address] [place] [address] Quan Yates III, MD 04/20/2025 Orders Only [facility] Liver Transplant at [address] [place] [address] Quan Yates III, MD 04/19/2025 Telephone [facility] Liver Transplant at [address] [place] [address] Pao Pennington RN 04/19/2025 Pharmacy Services [facility] [address] [place] [phone] Josh Garcia, PharmD 04/19/2025 Pharmacy Services [facility] [address] [place] [phone] Josh Garcia, PharmD 04/19/2025 Pharmacy Services [facility] [address] [place] [phone] Josh Garcia, PharmD 04/19/2025 Pharmacy Services [facility] [address] [place] [phone] Josh Garcia, PharmD 04/19/2025 Chart Note [facility] Liver Transplant at [address] [phone] Pao Pennington, KONSTANTIN I introduced myself as inpatient liver jewelry sales coordinator, explained 04/18/2025 8:18 AM EDT Anesthesia Event [facility] [address] [place] [phone] Richard Li MD Summers, Steven Joseph, DO 04/18/2025 7:30 AM EDT - 04/18/2025 5:00 PM EDT Surgery [facility] [address] [place] [phone] Jarrod Goode MD LIVING DONOR LIVER TRANSPLANT 04/18/2025 5:33 AM EDT - 05/03/2025 4:23 PM EST Hospital Encounter [facility] [address] [place] [phone] Jarrod Goode MD Haugen, Christine, MD Immunosuppression ([facility]) (Primary Dx); Pre-transplant evaluation for chronic liver disease; Generalized edema; Melena; Localized swelling, mass, or lump of upper extremity, right; Living related donor renal transplant; Alcoholic cirrhosis of liver with ascites ([facility]); End-stage liver disease ([facility]) Discharge Disposition: Home WITH Home Health Care Services 04/18/2025 Chart Note [facility] Liver Transplant at [address] [place] [phone] Lashawn Lira, KONSTANTIN [place] tab updated, recipient removed from [facility] wait list. 04/18/2025 Chart Note [facility] Liver Transplant at [address] [place] [address] Abdullahi Cano RN MELD lab values were successfully updated in [facility] and were accurately 04/18/2025 Travel 04/15/2025 Orders Only [facility] Liver Transplant at [address] [place] [address] Qaun Yates III, MD 04/12/2025 Telephone [facility] Transplant at [address] [place] [address] Lashawn Lira RN 04/12/2025 Chart Note [facility] Liver Transplant at [address] [place] [address] Lashawn Lira, KONSTANTIN Organ added under [facility] tab for OR usage during LDLT scheduled for 04/11/2025 2:35 PM EDT Specimen [facility] [address] [place] [phone] Mario Ramirez MD Pre-transplant evaluation for chronic liver disease; Alcoholic cirrhosis of liver with ascites (CMS-HCC); Encounter for pre-transplant evaluation for liver transplant; TB (tuberculosis) 04/11/2025 2:00 PM EDT Office Visit [facility] Anesthesia Transplant at [address] [place] [address] Unknown, Attending Provider Richard Li MD Encounter for pre-transplant evaluation for liver transplant (Primary Dx) 04/11/2025 1:00 PM EDT Office Visit [facility] Liver Transplant at [address] [phone] Jarrod Goode MD Alcoholic cirrhosis of liver with ascites ([facility]) (Primary Dx); Encounter for pre-transplant evaluation for liver transplant 04/11/2025 12:30 PM EDT Office Visit [facility] Liver Transplant at [address] [phone] Eliezer Vital MD Encounter for pre-transplant evaluation for liver transplant (Primary Dx) 04/11/2025 10:58 AM EDT - 04/11/2025 11:59 PM EDT Hospital Encounter [facility] Radiology at [facility] [address] [phone] Mario Ramirez MD Ascites due to alcoholic cirrhosis ([facility]); Alcoholic cirrhosis of liver with ascites ([facility]) Discharge Disposition: Home or Self Care WITHOUT Home Care Services 04/11/2025 Chart Note [facility] Kidney Transplant at [address] [place] [address] Niya Tripp Liver Transplant Scheduled 04/11/2025 Chart Note [facility] Transplant at [address] [place] [address] Niya Tripp Called [employer] intake at [phone] and got a pending IP auth for 04/11/2025 Chart Note [facility] Liver Transplant at [address] [phone] Abdullahi Cano, RN Reviewed patient with ID. Ok to move forward with LDLT as long as patient 04/08/2025 Orders Only [facility] Liver Transplant at [address] [phone] Quan Yates III, MD 04/07/2025 Telephone [facility] Liver Transplant at [address] [phone] Tresa Reilly MA 04/06/2025 Telephone [facility] Liver Transplant at [address] [phone] Abdullahi Cano RN 03/29/2025 Orders Only [facility] Liver Transplant at [address] [phone] Abdullahi Cano, KONSTANTIN 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; Encounter for pre-transplant evaluation for liver transplant; TB (tuberculosis) 03/29/2025 Telephone [facility] Liver Transplant at [address] [phone] Abdullahi Cano RN 03/22/2025 Chart Note [facility] Liver Transplant at [address] [phone] Tresa Reilly MA ABO/RH result 03/22/2025 Chart Note [facility] Liver Transplant at [address] [phone] Abdullahi Cano, RN [facility] VERIFICATION CHECK FORM 03/17/2025 Telephone [facility] Liver Transplant at [address] [phone] Abdullahi Cano, KONSTANTIN 03/16/2025 3:00 PM EDT - 03/16/2025 11:59 PM EDT Hospital Encounter [facility] [facility] [address] [place] [phone] Mario Ramirez MD Alcoholic cirrhosis of liver with ascites (CMS-HCC); Pre-transplant evaluation for chronic liver disease Discharge Disposition: Home or Self Care WITHOUT Home Care Services 03/15/2025 Telephone [facility] Liver Transplant at [address] [place] [address] Abdullahi Cano, KONSTANTIN 03/14/2025 Telephone [facility] Liver Transplant at [address] [address] Abdullahi Cano, KONSTANTIN 03/11/2025 Telephone [facility] Liver Transplant at [address] [place] [address] Abdullahi Cano, KONSTANTIN 03/11/2025 Orders Only [facility] Liver Transplant at [address] [phone] Abdullahi Cano, RN 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; Pre-transplant evaluation for chronic liver disease 03/10/2025 Chart Note [facility] Kidney Transplant at [address] [place] [address] Niya Tripp Authorization for listing 03/10/2025 Telephone [facility] Liver Transplant at [address] [phone] Abdullahi Cano, RN 03/10/2025 Orders Only [facility] Liver Transplant at [address] [phone] Abdullahi Cano, RN 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; Pre-transplant evaluation for chronic liver disease; TB lung, latent 03/09/2025 Orders Only [facility] Liver Transplant at [address] [place] [phone] Lashawn Lira RN Pre-transplant evaluation for chronic liver disease (Primary Dx) 03/09/2025 Telephone [facility] Liver Transplant at [address] [place] [address] Tresa Reilly MA 03/09/2025 Chart Note [facility] Liver Transplant at [address] [place] [address] Tresa Reilly MA Lab results entered from [facility] on 03/08/25. 03/09/2025 Telephone [facility] Liver Transplant at [address] [place] [address] Tresa Reilly MA 03/09/2025 Chart Note [facility] Kidney Transplant at [address] [place] [phone] Niya Tripp Faxed Clinical for Listing/Txp Auth 03/08/2025 Telephone [facility] Liver Transplant at [address] [place] [phone] Tresa Reilly MA 03/08/2025 Telephone [facility] Liver Transplant at [address] [place] [phone] Abdullahi Cano, KONSTANTIN 03/08/2025 Telephone [facility] Liver Transplant at [address] [place] [phone] Tresa Reilly MA 03/08/2025 Chart Note [facility] Liver Transplant at [address] [place] [address] Abdullahi Cano, RN [facility] tab updated. 03/08/2025 Telephone [facility] Liver Transplant at [address] [address] Ginna Tello MA 03/02/2025 Orders Only [facility]plant at [address] [id number] Abdullahi Cano RN Pre-transplant evaluation for chronic liver disease (Primary Dx); Alcoholic cirrhosis of liver with ascites (CMS-HCC) 03/01/2025 Telephone [facility]plant at [address] [phone] Ginna Tello MA 03/01/2025 Telephone [facility]plant at [id number] [place] [address] Abdullahi Cano RN 02/23/2025 Chart Note [facility] at [address] [phone] Abdullahi Cano, KNOSTANTIN Reviewed upcoming transplant time line. Will schedule into trasnplant from Last 3 Months Immunizations Immunization Administration Dates Next Due Hepatitis B, adult 11/02/2024,08/20/2024 025 Influenza, trivalent, with preservative 04/19/20 10 Family History 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 Relation Comments Cirrhosis Father Liver disease Father Relation Status Comments Father Social History Tobacco Use Types Packs/Day Years Used Date Smoking Tobacco: Former Cigarettes 0.3 1.2 0 07/22/2014 - 07/22/2015 Smokeless Tobacco: Never Tobacco Cessation:Counseling Given: No Alcohol Use Standard Drinks/Week Comments Not Currently 0 (1 standard drink = 0.6 oz pur e alcohol) [facility] Utilities Answer Date Recorded In the past [...] any time in the past 12 m [facility], were you homeless or living in [...] Pulse 73 05/17/2025 10:22 AM EST Temperature 36.7 C (98.1 F) 05/10/2025 9:10 AM EST Respiratory Rate 16 05/17/2025 10:22 AM EST Oxygen Saturation 100% 05/17/2025 10:22 AM EST Inhaled Oxygen Concentration 100% 05/17/2025 1 0:22 AM EST Weight 70.9 kg (156 lb 6.4 oz) 05/17/2025 10:22 AM EST Height 165.1 cm (5' 5 ) 05/17/2025 10:22 AM EST Body Mass Index 26.03 05/17/2025 10:22 AM EST Plan of Treatment Health Maintenance Due Date Last Done Comments Pulmonary Function Testing 1990 Immunization: COVID-19 (#1) 1995 Immunization: DTaP/Tdap/Td ( 1 - Tdap) 2009 Immunization: Hepatitis A (1 of 2 - Risk 2-dose series) 2009 Immunization: Pneumococcal ( 1 of 2 - PCV) 2009 Immunization: Zoster (1 of 2) 2009 Immunization: HPV (1 - Risk 3-dose SCDM series) 2017 Cervical Cancer Screening/Pa p Smear (MyChart) 01/26/2020 Immunization: Hepatitis B (3 of 3 - 19+ 3-dose series) 02/17/2025 11/02/2024, 08/20/2024 Immunization: Influenza (MyC poole) (#1) 2025 04/19/2010 Depression Screening 12/20/2025 12/20/2024, 11/05/19 Renal Function/GFR 05/17/2026 05/17/2025, 1 07/12/2024, 05/10/2025, Additional history exists HIV Screening Completed 05/17/2025, 03/24, 04/11/2025, Additional history exists Procedures Procedure Name Priority Date/Time Associated Diagnosis Comments PERFUSION RECORD - SCAN 05/21/20 4:02 PM EST PHOSPHATIDYLETHANOL CONFIRMATION, B Routine 05/17/2025 10:14 AM EST S/P liver transplant (CMS-HCC) Immunosuppressio n (CMS-HCC) Alcohol use MAGNESIUM Routine 05/17/2025 10:14 AM EST S/P liver transplant (CMS-HCC) Immunosuppressio n (CMS-HCC) Low magnesium level Healthcare maintenance HIV-1 RNA, QUANTITATIVE, PCR Routine 05/17/2025 10:14 AM EST S/P liver transplant (CMS-HCC) Immunosuppressio n (CMS-HCC) Viral disease exposure HEPATITIS C RNA, QUANTITATIVE PCR Routine 05/17/2025 10:14 AM EST S/P liver transplant (CMS-HCC) Immunosuppressio n (CMS-HCC) Viral disease exposure HEPATITIS B VIRUS (HBV), REAL-TIME PCR, QUANT Routine 05/17/2025 10:14 AM EST S/P liver transplant (CMS-HCC) Immunosuppressio n (CMS-HCC) Viral disease exposure TACROLIMUS LEVEL Routine 05/17/2025 10:14 AM EST S/P liver transplant (CMS-HCC) Immunosuppressio n (CMS-HCC) DIFFERENTIAL Routine 05/17/2025 10:14 AM EST S/P liver transplant (CMS-HCC) Immunosuppressio n (CMS-HCC) CBC Routine 05/17/2025 10:14 AM EST S/P liver transplant (CMS-HCC) Immunosuppressio n (CMS-HCC) RENAL FUNCTION PANEL W/EGFR Routine 05/17/2025 10:14 AM EST S/P liver transplant (CMS-HCC) Immunosuppressio n (CMS-HCC) HEPATIC FUNCTION PANEL Routine 10:14 AM EST S/P liver transplant (CMS-HCC) Immunosuppressio n (CMS-HCC) RENAL FUNCTION PANEL W/O EGFR Routine 05/12/2025 9:32 AM EST CBC AND DIFFERENTIAL Routine 05/12/2025 9:32 AM EST HEPATIC FUNCTION PANEL Routine 9:32 AM EST TACROLIMUS LEVEL Routine 05/10/2025 9:04 AM EST S/P liver transplant (CMS-HCC) Immunosuppressio n (CMS-HCC) DIFFERENTIAL Routine 05/10/2025 9:04 AM EST S/P liver transplant (CMS-HCC) Immunosuppressio n (CMS-HCC) CBC Routine 05/10/2025 9:04 AM EST S/P liver transplant (CMS-HCC) Immunosuppressio n (CMS-HCC) RENAL FUNCTION PANEL W/EGFR Routine 05/10/2025 9:04 AM EST S/P liver transplant (CMS-HCC) Immunosuppressio n (CMS-HCC) HEPATIC FUNCTION PANEL Routine 9:04 AM EST S/P liver transplant (CMS-HCC) Immunosuppressio n (CMS-HCC) EKG - SCAN 05/04/2025 7:57 AM EST BLOOD TRANSFUSION - SCAN 025 7:49 AM EST PREPARE RBC, LEUKOREDUCED Routine 2024 6:15 AM EST POC GLU MONITORING DEVICE Routine 2024 12:17 PM EST TRANSFUSE RED BLOOD CELLS Routine 2024 10:49 AM EST ANTIBODY SCREEN Routine 05/03/2025 9:05 AM EST ABO/RH Routine 05/03/2025 9:05 AM EST POC GLU MONITORING DEVICE Routine 2024 7:52 AM EST RENAL FUNCTION PANEL W/EGFR Routine 05/03/2025 5:46 AM EST MAGNESIUM Routine 05/03/2025 5:46 AM EST HEPATIC FUNCTION PANEL Routine 5:46 AM EST CBC Routine 05/03/2025 5:46 AM EST TACROLIMUS LEVEL Timed 05/03/2025 5:46 AM EST POC GLU MONITORING DEVICE Routine 2024 9:09 PM EST POC GLU MONITORING DEVICE Routine 2024 5:02 PM EST POC GLU MONITORING DEVICE Routine 2024 10:52 AM EST POC GLU MONITORING DEVICE Routine 2024 5:58 AM EST RENAL FUNCTION PANEL W/EGFR STAT 05/02/2025 5:34 AM EST MAGNESIUM Routine 05/02/2025 5:34 AM EST HEPATIC FUNCTION PANEL Routine 5:34 AM EST CBC Routine 05/02/2025 5:34 AM EST TRIGLYCERIDES Routine 05/02/2025 5:34 AM EST TACROLIMUS LEVEL Timed 05/02/2025 5:34 AM EST POC GLU MONITORING DEVICE Routine 2024 11:58 PM EST MRI ABDOMEN W AND WO CONTRAST STAT 05/01/2025 11:40 PM EST POC GLU MONITORING DEVICE Routine 2024 11:14 AM EST PROTIME-INR STAT 05/01/2025 10:21 AM EST POC GLU MONITORING DEVICE Routine 2024 7:38 AM EST RENAL FUNCTION PANEL W/EGFR Routine 05/01/2025 6:09 AM EST MAGNESIUM Routine 05/01/2025 6:09 AM EST HEPATIC FUNCTION PANEL Routine 6:09 AM EST CBC Routine 05/01/2025 6:09 AM EST TACROLIMUS LEVEL Timed 05/01/2025 6:09 AM EST POC GLU MONITORING DEVICE Routine 2024 12:02 AM EST POC GLU MONITORING DEVICE Routine 2024 4:59 PM EST POC GLU MONITORING DEVICE Routine 2024 3:47 PM EST POC GLU MONITORING DEVICE Routine 2024 12:08 PM EST POC GLU MONITORING DEVICE Routine 2024 8:44 AM EST RENAL FUNCTION PANEL W/EGFR Routine 04/30/2025 5:12 AM EST MAGNESIUM Routine 04/30/2025 5:12 AM EST HEPATIC FUNCTION PANEL Routine 5:12 AM EST CBC Routine 04/30/2025 5:12 AM EST TACROLIMUS LEVEL Timed 04/30/2025 5:12 AM EST POC GLU MONITORING DEVICE Routine 2024 10:12 PM EST POC GLU MONITORING DEVICE Routine 2024 5:04 PM EST POC GLU MONITORING DEVICE Routine 2024 12:58 PM EST POC GLU MONITORING DEVICE Routine 2024 11:54 AM EST US ABDOMEN LIMITED STAT 04/29/2025 11:18 AM EST US DUPLEX [id number] COMPLETE STAT 04/29/2025 11:18 AM EST ECHO COMPLETE STAT 04/29/2025 10:[address] ABDOMEN AND PELVIS WITH IV CONTRAST STAT 04/29/2025 6:06 AM EST RENAL FUNCTION PANEL W/EGFR STAT 04/29/2025 5:25 AM EST MAGNESIUM Routine 04/29/2025 5:25 AM EST HEPATIC FUNCTION PANEL Routine 5:25 AM EST CBC Routine 04/29/2025 5:25 AM EST TACROLIMUS LEVEL Timed 04/29/2025 5:25 AM EST POC GLU MONITORING DEVICE Routine 2024 5:06 AM EST POC GLU MONITORING DEVICE Routine 2024 11:10 PM EST POC GLU MONITORING DEVICE Routine 2024 5:19 PM EST POC GLU MONITORING DEVICE Routine 2024 10:58 AM EST POC GLU MONITORING DEVICE Routine 2024 6:43 AM EST RENAL FUNCTION PANEL W/EGFR Routine 04/28/2025 6:37 AM EST MAGNESIUM Routine 04/28/2025 6:37 AM EST HEPATIC FUNCTION PANEL Routine 6:37 AM EST CBC Routine 04/28/2025 6:37 AM EST TACROLIMUS LEVEL Timed 04/28/2025 6:37 AM EST POC GLU MONITORING DEVICE Routine 2024 11:04 PM EST CORNELIUS RHYTHM STRIP - SCAN 04/27/20 7:26 PM EST ECG 12-LEAD (MUSE) Routine 04/27/2025 5:57 PM EST POC GLU MONITORING DEVICE Routine 2024 5:55 PM EST TRIGLYCERIDES Routine 04/27/2025 11:36 AM EST POC GLU MONITORING DEVICE Routine 2024 11:31 AM EST XR PORTABLE ABDOMEN AP STAT 6:50 AM EST POC GLU MONITORING DEVICE Routine 2024 5:03 AM EST POC GLU MONITORING DEVICE Routine 2024 5:01 AM EST POC GLU MONITORING DEVICE Routine 2024 5:00 AM EST TACROLIMUS LEVEL Timed 04/27/2025 4:56 AM EST CBC Routine 04/27/2025 4:56 AM EST PHOSPHORUS STAT 04/27/2025 3:01 AM EST MAGNESIUM STAT 04/27/2025 3:01 AM EST HEPATIC FUNCTION PANEL STAT 3:01 AM EST BASIC METABOLIC PANEL STAT 04/27/2025 3:01 AM EST CBC Routine 04/26/2025 11:55 PM EST POC GLU MONITORING DEVICE Routine 2024 10:50 PM EST ANTIBODY SCREEN Routine 04/26/2025 6:02 PM EST ABO/RH Routine 04/26/2025 6:02 PM EST POC GLU MONITORING DEVICE Routine 2024 6:00 PM EST CBC STAT 04/26/2025 4:16 PM EST PHOSPHORUS Routine 04/26/2025 4:16 PM EST MAGNESIUM Routine 04/26/2025 4:16 PM EST RENAL FUNCTION PANEL W/EGFR Routine 04/26/2025 4:16 PM EST POC GLU MONITORING DEVICE Routine 2024 12:50 PM EST VAS VENOUS DUPLEX UPPER RIGHT STAT 04/26/2025 11:55 AM EST Generalized edema Localized swelling, mass, or lump of upper extremity, right XR PORTABLE ABDOMEN AP Routine 8:57 AM EST CBC Routine 04/26/2025 7:47 AM EST TACROLIMUS LEVEL Timed 04/26/2025 7:47 AM EST POC GLU MONITORING DEVICE Routine 2024 7:44 AM EST MAGNESIUM Routine 04/26/2025 6:09 AM EST RENAL FUNCTION PANEL W/EGFR STAT 04/26/2025 6:09 AM EST HEPATIC FUNCTION PANEL Routine 6:09 AM EST POC GLU MONITORING DEVICE Routine 2024 2:19 AM EST CALCIUM FREE, SERUM Routine 04/26/2025 12:27 AM EST POC GLU MONITORING DEVICE Routine 2024 12:13 AM EST MAGNESIUM Routine 04/26/2025 12:12 AM EST RENAL FUNCTION PANEL W/EGFR STAT 04/26/2025 12:12 AM EST CBC Routine 04/25/2025 9:01 PM EST MAGNESIUM Routine 04/25/2025 5:40 PM EST RENAL FUNCTION PANEL W/EGFR STAT 04/25/2025 5:40 PM EST MAGNESIUM Routine 04/25/2025 11:34 AM EST RENAL FUNCTION PANEL W/EGFR STAT 04/25/2025 11:34 AM EST US DUPLEX [id number] COMPLETE STAT 04/25/2025 10:36 AM EST US ABDOMEN LIMITED STAT 04/25/2025 10:36 AM EST CBC Routine 04/25/2025 8:13 AM EST LACTIC ACID, ARTERIAL, WHOLE BLOOD Routine 04/25/2025 8:13 AM EST FREE CALCIUM, WHOLE BLOOD Routine 2024 8:13 AM EST BLOOD GAS, ARTERIAL Routine 04/25/2025 8:13 AM EST TACROLIMUS LEVEL Timed 04/25/2025 8:13 AM EST PROTIME-INR Routine 04/25/2025 5:18 AM EST MAGNESIUM Routine 04/25/2025 5:18 AM EST RENAL FUNCTION PANEL W/EGFR STAT 04/25/2025 5:18 AM EST CBC Routine 04/25/2025 5:18 AM EST HEPATIC FUNCTION PANEL Routine 5:18 AM EST POC GLU MONITORING DEVICE Routine 2024 5:17 AM EST MAGNESIUM Routine 04/25/2025 12:05 AM EST RENAL FUNCTION PANEL W/EGFR STAT 04/25/2025 12:05 AM EST CBC Routine 04/25/2025 12:05 AM EST POC GLU MONITORING DEVICE Routine 2024 12:04 AM EST MAGNESIUM Routine 04/24/2025 6:40 PM EST RENAL FUNCTION PANEL W/EGFR STAT 04/24/2025 6:40 PM EST CBC Routine 04/24/2025 6:40 PM EST POC GLU MONITORING DEVICE Routine 2024 6:38 PM EST BLOOD GAS, ARTERIAL STAT 04/24/2025 12:29 PM EST MAGNESIUM Routine 04/24/2025 12:29 PM EST RENAL FUNCTION PANEL W/EGFR STAT 04/24/2025 12:29 PM EST CBC Routine 04/24/2025 12:29 PM EST POC GLU MONITORING DEVICE Routine 2024 12:25 PM EST XR PORTABLE CHEST STAT 04/24/2025 8:52 AM EST TACROLIMUS LEVEL Timed 04/24/2025 7:57 AM EST PREPARE RBC, LEUKOREDUCED STAT 2024 6:15 AM EST PREPARE RBC, LEUKOREDUCED Routine 2024 6:15 AM EST PREPARE PLATELETS, LEUKOREDUCED STAT 04/24/2025 6:15 AM EST PREPARE CRYOPRECIPITATE STAT 04/24/20 6:15 AM EST PREPARE CRYOPRECIPITATE STAT 04/24/20 6:15 AM EST PREPARE FRESH FROZEN PLASMA STAT 04/24/2025 6:15 AM EST PREPARE RBC, LEUKOREDUCED STAT 2024 6:15 AM EST PREPARE RBC, LEUKOREDUCED STAT 2024 6:15 AM EST PREPARE RBC, LEUKOREDUCED Routine 2024 6:15 AM EST BLOOD GAS, ARTERIAL STAT 04/24/2025 5:43 AM EST POC GLU MONITORING DEVICE Routine 2024 4:38 AM EST PROTIME-INR STAT 04/24/2025 4:36 AM EST TEG-BYPASS/ECMO/LIVER HN (FACTOR FUNCTION, PLATELET/FIBRIN CLOT STRENGTH W/CLOT BREAKDOWN, HEPARINASE IN ALL CHANNELS) STAT 04/24/2025 4:36 AM EST MAGNESIUM Routine 04/24/2025 4:36 AM EST RENAL FUNCTION PANEL W/EGFR STAT 04/24/2025 4:36 AM EST CBC Routine 04/24/2025 4:36 AM EST HEPATIC FUNCTION PANEL Routine 4:36 AM EST POC GLU MONITORING DEVICE Routine 2024 12:12 AM EDT PROTIME-INR STAT 04/24/2025 12:00 AM EDT BLOOD GAS, ARTERIAL STAT 04/24/2025 12:00 AM EDT TEG-BYPASS/ECMO/LIVER HN (FACTOR FUNCTION, PLATELET/FIBRIN CLOT STRENGTH W/CLOT BREAKDOWN, HEPARINASE IN ALL CHANNELS) STAT 04/24/2025 12:00 AM EDT MAGNESIUM Routine 04/24/2025 12:00 AM EDT RENAL FUNCTION PANEL W/EGFR STAT 04/24/2025 12:00 AM EDT CBC Routine 04/24/2025 12:00 AM EDT PROTIME-INR STAT 04/23/2025 6:11 PM EDT BLOOD GAS, ARTERIAL STAT 04/23/2025 6:11 PM EDT TEG-BYPASS/ECMO/LIVER HN (FACTOR FUNCTION, PLATELET/FIBRIN CLOT STRENGTH W/CLOT BREAKDOWN, HEPARINASE IN ALL CHANNELS) STAT 04/23/2025 6:11 PM EDT MAGNESIUM Routine 04/23/2025 6:11 PM EDT RENAL FUNCTION PANEL W/EGFR STAT 04/23/2025 6:11 PM EDT CBC Routine 04/23/2025 6:11 PM EDT POC GLU MONITORING DEVICE Routine 2024 6:09 PM EDT US DUPLEX [id number] COMPLETE STAT 04/23/2025 2:12 PM EDT US ABDOMEN LIMITED STAT 04/23/2025 2:12 PM EDT PROTIME-INR STAT 04/23/2025 1:44 PM EDT BLOOD GAS, ARTERIAL STAT 04/23/2025 1:44 PM EDT XR PORTABLE CHEST STAT 04/23/2025 11:46 AM EDT RENAL FUNCTION PANEL W/EGFR Add-On 04/23/2025 11:46 AM EDT TEG-BYPASS/ECMO/LIVER HN (FACTOR FUNCTION, PLATELET/FIBRIN CLOT STRENGTH W/CLOT BREAKDOWN, HEPARINASE IN ALL CHANNELS) STAT 04/23/2025 11:46 AM EDT FREE CALCIUM, WHOLE BLOOD STAT 2024 11:46 AM EDT BLOOD GAS, ARTERIAL STAT 04/23/2025 11:46 AM EDT MAGNESIUM Routine 04/23/2025 11:46 AM EDT PROTIME-INR STAT 04/23/2025 11:30 AM EDT LACTIC ACID STAT 04/23/2025 11:30 AM EDT HEPATIC FUNCTION PANEL STAT 11:30 AM EDT CBC STAT 04/23/2025 11:30 AM EDT RENAL FUNCTION PANEL W/EGFR STAT 04/23/2025 11:30 AM EDT MAGNESIUM STAT 04/23/2025 11:30 AM EDT POC GLU MONITORING DEVICE Routine 2024 11:29 AM EDT PREPARE FRESH FROZEN PLASMA Routine 04/23/2025 11:13 AM EDT TRANSFUSE RED BLOOD CELLS STAT 2024 10:50 AM EDT ROUTINE CULTURE PLUS STAIN Routine 04/23/2025 9:53 AM EDT FUNGUS CULTURE Routine 04/23/2025 9:53 AM EDT ANAEROBIC CULTURE Routine 04/23/2025 9:53 AM EDT TEG-BYPASS/ECMO/LIVER HN (FACTOR FUNCTION, PLATELET/FIBRIN CLOT STRENGTH W/CLOT BREAKDOWN, HEPARINASE IN ALL CHANNELS) STAT 04/23/2025 9:37 AM EDT ARTERIAL BLOOD GAS PANEL STAT 025 9:37 AM EDT EMERGENCY LIVER TXP COME BACK 04/23/2025 9:16 AM EDT TRANSFUSE RED BLOOD CELLS STAT 2024 9:03 AM EDT TRANSFUSE RED BLOOD CELLS STAT 2024 8:54 AM EDT XR PORTABLE FEEDING TUBE X-RAY STAT 04/23/2025 8:48 AM EDT XR PORTABLE CHEST STAT 04/23/2025 8:47 AM EDT TEG-BYPASS/ECMO/LIVER HN (FACTOR FUNCTION, PLATELET/FIBRIN CLOT STRENGTH W/CLOT BREAKDOWN, HEPARINASE IN ALL CHANNELS) STAT 04/23/2025 8:31 AM EDT CBC Routine 04/23/2025 8:31 AM EDT TEG-BYPASS/ECMO/LIVER HN (FACTOR FUNCTION, PLATELET/FIBRIN CLOT STRENGTH W/CLOT BREAKDOWN, HEPARINASE IN ALL CHANNELS) STAT 04/23/2025 7:45 AM EDT BLOOD GAS, ARTERIAL STAT 04/23/2025 7:45 AM EDT HEMOGLOBIN, BLOOD GAS STAT 04/23/2025 7:45 AM EDT LACTIC ACID, ARTERIAL, WHOLE BLOOD STAT 04/23/2025 7:45 AM EDT TACROLIMUS LEVEL Timed 04/23/2025 7:45 AM EDT PUSH ENTEROSCOPY Endo Bedside Procedure 04/23/2025 6:05 AM EDT Melena SMALL BOWEL ENTEROSCOPY Routine 04/23/20 6:01 AM EDT PREPARE RBC, LEUKOREDUCED Routine 2024 5:36 AM EDT PREPARE FRESH FROZEN PLASMA Routine 04/23/2025 5:33 AM EDT CENTRAL LINE Routine 04/23/2025 5:14 AM EDT INSERT ARTERIAL LINE Routine 04/23/2025 4:53 AM EDT MAGNESIUM STAT 04/23/2025 4:26 AM EDT TEG-BYPASS/ECMO/LIVER HN (FACTOR FUNCTION, PLATELET/FIBRIN CLOT STRENGTH W/CLOT BREAKDOWN, HEPARINASE IN ALL CHANNELS) STAT 04/23/2025 4:26 AM EDT CBC STAT 04/23/2025 4:26 AM EDT CALCIUM FREE, SERUM Routine 04/23/2025 4:26 AM EDT HEPATIC FUNCTION PANEL STAT 4:26 AM EDT RENAL FUNCTION PANEL W/EGFR STAT 04/23/2025 4:26 AM EDT LACTIC ACID STAT 04/23/2025 4:26 AM EDT SODIUM, BLOOD GAS STAT 04/23/2025 4:26 AM EDT POTASSIUM, BLOOD GAS STAT 04/23/2025 4:26 AM EDT LACTIC ACID, ARTERIAL, WHOLE BLOOD STAT 04/23/2025 4:26 AM EDT HEMOGLOBIN, BLOOD GAS STAT 04/23/2025 4:26 AM EDT HEMATOCRIT, BLOOD GAS STAT 04/23/2025 4:26 AM EDT FREE CALCIUM, WHOLE BLOOD STAT 2024 4:26 AM EDT BLOOD GAS, ARTERIAL STAT 04/23/2025 4:26 AM EDT PROTIME-INR Routine 04/23/2025 4:26 AM EDT INTUBATION Routine 04/23/2025 3:44 AM EDT XR PORTABLE CHEST STAT 04/23/2025 3:13 AM EDT FREE CALCIUM, WHOLE BLOOD STAT 2024 2:54 AM EDT ARTERIAL BLOOD GAS PANEL STAT 2:54 AM EDT CALCIUM FREE, SERUM STAT 04/23/2025 2:23 AM EDT TEG-BYPASS/ECMO/LIVER HN (FACTOR FUNCTION, PLATELET/FIBRIN CLOT STRENGTH W/CLOT BREAKDOWN, HEPARINASE IN ALL CHANNELS) STAT 04/23/2025 2:23 AM EDT LACTIC ACID STAT 04/23/2025 2:23 AM EDT RENAL FUNCTION PANEL W/EGFR Routine 04/23/2025 2:23 AM EDT MAGNESIUM Routine 04/23/2025 2:23 AM EDT HEPATIC FUNCTION PANEL Routine 2:23 AM EDT CBC Routine 04/23/2025 2:23 AM EDT TRANSFUSE RED BLOOD CELLS Routine 2024 1:22 AM EDT POC GLU MONITORING DEVICE Routine 2024 12:26 AM EDT ANTIBODY SCREEN Routine 04/23/2025 12:03 AM EDT ABO/RH Routine 04/23/2025 12:03 AM EDT CBC STAT 04/23/2025 12:03 AM EDT LACTIC ACID STAT 04/22/2025 11:04 PM EDT MAGNESIUM STAT 04/22/2025 11:04 PM EDT RENAL FUNCTION PANEL W/EGFR STAT 04/22/2025 11:04 PM EDT CBC STAT 04/22/2025 11:04 PM EDT POC GLU MONITORING DEVICE Routine 2024 9:12 PM EDT POC GLU MONITORING DEVICE Routine 2024 4:33 PM EDT POC GLU MONITORING DEVICE Routine 2024 12:05 PM EDT TACROLIMUS LEVEL Timed 04/22/2025 6:06 AM EDT RENAL FUNCTION PANEL W/EGFR Routine 04/22/2025 6:06 AM EDT MAGNESIUM Routine 04/22/2025 6:06 AM EDT HEPATIC FUNCTION PANEL Routine 6:06 AM EDT CBC Routine 04/22/2025 6:06 AM EDT POC GLU MONITORING DEVICE Routine 2024 5:58 AM EDT POC GLU MONITORING DEVICE Routine 2024 11:19 PM EDT POC GLU MONITORING DEVICE Routine 2024 6:17 PM EDT VAS VENOUS DUPLEX UPPER LEFT STAT 04/21/2025 4:54 PM EDT Generalized edema HOX - HLA CROSSMATCH REPORT Routine 04/21/2025 2:18 PM EDT POC GLU MONITORING DEVICE Routine 2024 12:52 PM EDT OSMOLALITY, URINE Routine 04/21/2025 12:31 PM EDT CREATININE, URINE, RANDOM Routine 2024 12:31 PM EDT PROTEIN, URINE, RANDOM Routine 12:31 PM EDT SODIUM, URINE, RANDOM Routine 04/21/2025 12:31 PM EDT US ABDOMEN LIMITED STAT 04/21/2025 9:47 AM EDT US DUPLEX [id number] COMPLETE STAT 04/21/2025 9:47 AM EDT RENAL FUNCTION PANEL W/EGFR Routine 04/21/2025 9:00 AM EDT MAGNESIUM Routine 04/21/2025 9:00 AM EDT HEPATIC FUNCTION PANEL Routine 9:00 AM EDT CBC Routine 04/21/2025 9:00 AM EDT TACROLIMUS LEVEL Timed 04/21/2025 9:00 AM EDT PROTIME-INR STAT 04/21/2025 9:00 AM EDT INSERT PICC LINE Routine 04/21/2025 8:37 AM EDT POC GLU MONITORING DEVICE Routine 2024 4:56 AM EDT POC GLU MONITORING DEVICE Routine 2024 11:27 PM EDT POC GLU MONITORING DEVICE Routine 2024 6:30 PM EDT RENAL FUNCTION PANEL W/EGFR STAT 04/20/2025 6:09 PM EDT MAGNESIUM STAT 04/20/2025 6:09 PM EDT HEPATIC FUNCTION PANEL STAT 6:09 PM EDT HOX - HLA CROSSMATCH REPORT Routine 04/20/2025 3:05 PM EDT POC GLU MONITORING DEVICE Routine 2024 12:31 PM EDT TACROLIMUS LEVEL Timed 04/20/2025 8:20 AM EDT POC GLU MONITORING DEVICE Routine 2024 5:34 AM EDT CALCIUM FREE, SERUM STAT 04/20/2025 1:33 AM EDT RENAL FUNCTION PANEL W/EGFR STAT 04/20/2025 1:33 AM EDT PROTIME-INR STAT 04/20/2025 1:33 AM EDT MAGNESIUM STAT 04/20/2025 1:33 AM EDT HEPATIC FUNCTION PANEL STAT 1:33 AM EDT CBC STAT 04/20/2025 1:33 AM EDT POC GLU MONITORING DEVICE Routine 2024 1:26 AM EDT RENAL FUNCTION PANEL W/EGFR STAT 04/19/2025 5:27 PM EDT PROTIME-INR STAT 04/19/2025 5:27 PM EDT MAGNESIUM STAT 04/19/2025 5:27 PM EDT HEPATIC FUNCTION PANEL STAT 5:27 PM EDT CBC STAT 04/19/2025 5:27 PM EDT POC GLU MONITORING DEVICE Routine 2024 5:25 PM EDT COCCIDIOIDES ANTIBODY REFLEXIVE PANEL Timed 04/19/2025 12:41 PM EDT RENAL FUNCTION PANEL W/EGFR STAT 04/19/2025 12:41 PM EDT PROTIME-INR STAT 04/19/2025 12:41 PM EDT MAGNESIUM STAT 04/19/2025 12:41 PM EDT HEPATIC FUNCTION PANEL STAT 12:41 PM EDT CBC STAT 04/19/2025 12:41 PM EDT POC GLU MONITORING DEVICE Routine 2024 12:37 PM EDT US DUPLEX [id number] COMPLETE STAT 04/19/2025 11:03 AM EDT US ABDOMEN LIMITED STAT 04/19/2025 11:03 AM EDT TACROLIMUS LEVEL Timed 04/19/2025 8:37 AM EDT LACTIC ACID STAT 04/19/2025 8:37 AM EDT POC GLU MONITORING DEVICE Routine 2024 8:33 AM EDT RENAL FUNCTION PANEL W/EGFR STAT 04/19/2025 6:33 AM EDT PROTIME-INR STAT 04/19/2025 6:33 AM EDT MAGNESIUM STAT 04/19/2025 6:33 AM EDT LACTIC ACID STAT 04/19/2025 6:33 AM EDT HEPATIC FUNCTION PANEL STAT 6:33 AM EDT CBC STAT 04/19/2025 6:33 AM EDT POC GLU MONITORING DEVICE Routine 2024 6:24 AM EDT PREPARE CRYOPRECIPITATE Routine 04/19/20 6:16 AM EDT PREPARE PLATELETS, LEUKOREDUCED Routine 04/19/2025 6:16 AM EDT PREPARE FRESH FROZEN PLASMA Routine 04/19/2025 6:15 AM EDT PREPARE RBC, LEUKOREDUCED Routine 2024 6:15 AM EDT POC GLU MONITORING DEVICE Routine 2024 4:25 AM EDT POC GLU MONITORING DEVICE Routine 2024 4:21 AM EDT XR PORTABLE CHEST STAT 04/19/2025 2:50 AM EDT HIGH SENSITIVITY TROPONIN STAT 2024 2:27 AM EDT LACTIC ACID STAT 04/19/2025 2:27 AM EDT ECG 12-LEAD (MUSE) Routine 04/19/2025 2:21 AM EDT POC GLU MONITORING DEVICE Routine 2024 2:17 AM EDT POC GLU MONITORING DEVICE Routine 2024 12:23 AM EDT RENAL FUNCTION PANEL W/EGFR STAT 04/18/2025 11:19 PM EDT PROTIME-INR STAT 04/18/2025 11:19 PM EDT MAGNESIUM STAT 04/18/2025 11:19 PM EDT LACTIC ACID STAT 04/18/2025 11:19 PM EDT HEPATIC FUNCTION PANEL STAT 11:19 PM EDT CBC STAT 04/18/2025 11:19 PM EDT BLOOD GAS, ARTERIAL STAT 04/18/2025 10:46 PM EDT MAGNESIUM STAT 04/18/2025 10:12 PM EDT RENAL FUNCTION PANEL W/EGFR STAT 04/18/2025 10:12 PM EDT POC GLU MONITORING DEVICE Routine 2024 10:09 PM EDT XR PORTABLE FEEDING TUBE X-RAY STAT 04/18/2025 9:36 PM EDT LACTIC ACID Routine 04/18/2025 9:28 PM EDT POC GLU MONITORING DEVICE Routine 2024 9:11 PM EDT XR PORTABLE CHEST STAT 04/18/2025 8:26 PM EDT PREPARE RBC, LEUKOREDUCED Routine 2024 8:17 PM EDT POC GLU MONITORING DEVICE Routine 2024 8:05 PM EDT PREPARE FRESH FROZEN PLASMA Routine 04/18/2025 7:53 PM EDT Pre-transplant evaluation for chronic liver disease PREPARE RBC, LEUKOREDUCED Routine 2024 7:53 PM EDT Pre-transplant evaluation for chronic liver disease ECG 12-LEAD (MUSE) Routine 04/18/2025 7:13 PM EDT POC GLU MONITORING DEVICE Routine 2024 6:59 PM EDT CALCIUM FREE, SERUM STAT 04/18/2025 6:59 PM EDT TEG-STANDARD GLOBAL HEMOSTASIS (RAPID TEG WITH HEPARIN EFFECT, CONTAINS A BASELINE) STAT 04/18/2025 6:59 PM EDT LACTIC ACID STAT 04/18/2025 6:59 PM EDT FIBRINOGEN STAT 04/18/2025 6:59 PM EDT PROTIME-INR STAT 04/18/2025 6:59 PM EDT BLOOD GAS, ARTERIAL STAT 04/18/2025 6:59 PM EDT MAGNESIUM STAT 04/18/2025 6:59 PM EDT HEPATIC FUNCTION PANEL STAT 6:59 PM EDT RENAL FUNCTION PANEL W/EGFR STAT 04/18/2025 6:59 PM EDT CBC STAT 04/18/2025 6:59 PM EDT POC SAMPLE TYPE Routine 04/18/2025 5:00 PM EDT POC ANION GAP Routine 04/18/2025 5:00 PM EDT POC CHLORIDE Routine 04/18/2025 5:00 PM EDT POCT HEMOGLOBIN Routine 04/18/2025 5:00 PM EDT POCT HEMATOCRIT Routine 04/18/2025 5:00 PM EDT POC LACTATE Routine 04/18/2025 5:00 PM EDT POCT GLUCOSE Routine 04/18/2025 5:00 PM EDT POCT CALCIUM, TOTAL Routine 04/18/2025 5:00 PM EDT POC POTASSIUM Routine 04/18/2025 5:00 PM EDT POC SODIUM Routine 04/18/2025 5:00 PM EDT POC TCO2 Routine 04/18/2025 5:00 PM EDT POC O2 SAT Routine 04/18/2025 5:00 PM EDT POC BASE EXCESS Routine 04/18/2025 5:00 PM EDT POC HCO3 Routine 04/18/2025 5:00 PM EDT POC PO2 Routine 04/18/2025 5:00 PM EDT POC PCO2 Routine 04/18/2025 5:00 PM EDT POCT PH Routine 04/18/2025 5:00 PM EDT POCT INR Routine 04/18/2025 4:54 PM EDT TRANSFUSE CRYOPRECIPITATE Routine 2024 4:07 PM EDT TRANSFUSE CRYOPRECIPITATE Routine 2024 4:01 PM EDT POC SAMPLE TYPE Routine 04/18/2025 4:00 PM EDT POC ANION GAP Routine 04/18/2025 4:00 PM EDT POC CHLORIDE Routine 04/18/2025 4:00 PM EDT POCT HEMOGLOBIN Routine 04/18/2025 4:00 PM EDT POCT HEMATOCRIT Routine 04/18/2025 4:00 PM EDT POC LACTATE Routine 04/18/2025 4:00 PM EDT POCT GLUCOSE Routine 04/18/2025 4:00 PM EDT POCT CALCIUM, TOTAL Routine 04/18/2025 4:00 PM EDT POC POTASSIUM Routine 04/18/2025 4:00 PM EDT POC SODIUM Routine 04/18/2025 4:00 PM EDT POC TCO2 Routine 04/18/2025 4:00 PM EDT POC O2 SAT Routine 04/18/2025 4:00 PM EDT POC BASE EXCESS Routine 04/18/2025 4:00 PM EDT POC HCO3 Routine 04/18/2025 4:00 PM EDT POC PO2 Routine 04/18/2025 4:00 PM EDT POC PCO2 Routine 04/18/2025 4:00 PM EDT POCT PH Routine 04/18/2025 4:00 PM EDT POCT INR Routine 04/18/2025 3:55 PM EDT POC SAMPLE TYPE Routine 04/18/2025 3:06 PM EDT POC ANION GAP Routine 04/18/2025 3:06 PM EDT POC CHLORIDE Routine 04/18/2025 3:06 PM EDT POCT HEMOGLOBIN Routine 04/18/2025 3:06 PM EDT POCT HEMATOCRIT Routine 04/18/2025 3:06 PM EDT POC LACTATE Routine 04/18/2025 3:06 PM EDT POCT GLUCOSE Routine 04/18/2025 3:06 PM EDT POCT CALCIUM, TOTAL Routine 04/18/2025 3:06 PM EDT POC POTASSIUM Routine 04/18/2025 3:06 PM EDT POC SODIUM Routine 04/18/2025 3:06 PM EDT POC TCO2 Routine 04/18/2025 3:06 PM EDT POC O2 SAT Routine 04/18/2025 3:06 PM EDT POC BASE EXCESS Routine 04/18/2025 3:06 PM EDT POC HCO3 Routine 04/18/2025 3:06 PM EDT POC PO2 Routine 04/18/2025 3:06 PM EDT POC PCO2 Routine 04/18/2025 3:06 PM EDT POCT PH Routine 04/18/2025 3:06 PM EDT POCT INR Routine 04/18/2025 3:01 PM EDT TRANSFUSE FRESH FROZEN PLASMA Routine 04/18/2025 2:40 PM EDT Pre-transplant evaluation for chronic liver disease TRANSFUSE PLATELETS Routine 04/18/2025 2:37 PM EDT POC SAMPLE TYPE Routine 04/18/2025 2:10 PM EDT POC ANION GAP Routine 04/18/2025 2:10 PM EDT POC CHLORIDE Routine 04/18/2025 2:10 PM EDT POCT HEMOGLOBIN Routine 04/18/2025 2:10 PM EDT POCT HEMATOCRIT Routine 04/18/2025 2:10 PM EDT POC LACTATE Routine 04/18/2025 2:10 PM EDT POCT GLUCOSE Routine 04/18/2025 2:10 PM EDT POCT CALCIUM, TOTAL Routine 04/18/2025 2:10 PM EDT POC POTASSIUM Routine 04/18/2025 2:10 PM EDT POC SODIUM Routine 04/18/2025 2:10 PM EDT POC TCO2 Routine 04/18/2025 2:10 PM EDT POC O2 SAT Routine 04/18/2025 2:10 PM EDT POC BASE EXCESS Routine 04/18/2025 2:10 PM EDT POC HCO3 Routine 04/18/2025 2:10 PM EDT POC PO2 Routine 04/18/2025 2:10 PM EDT POC PCO2 Routine 04/18/2025 2:10 PM EDT POCT PH Routine 04/18/2025 2:10 PM EDT POCT INR Routine 04/18/2025 2:05 PM EDT TRANSFUSE PLATELETS Routine 04/18/2025 2:00 PM EDT FIBRINOGEN STAT 04/18/2025 1:52 PM EDT TEG-BYPASS/ECMO/LIVER HN (FACTOR FUNCTION, PLATELET/FIBRIN CLOT STRENGTH W/CLOT BREAKDOWN, HEPARINASE IN ALL CHANNELS) STAT 04/18/2025 1:52 PM EDT CBC STAT 04/18/2025 1:52 PM EDT PROTIME-INR STAT 04/18/2025 1:52 PM EDT POC SAMPLE TYPE Routine 04/18/2025 1:39 PM EDT POC ANION GAP Routine 04/18/2025 1:39 PM EDT POC CHLORIDE Routine 04/18/2025 1:39 PM EDT POCT HEMOGLOBIN Routine 04/18/2025 1:39 PM EDT POCT HEMATOCRIT Routine 04/18/2025 1:39 PM EDT POC LACTATE Routine 04/18/2025 1:39 PM EDT POCT GLUCOSE Routine 04/18/2025 1:39 PM EDT POCT CALCIUM, TOTAL Routine 04/18/2025 1:39 PM EDT POC POTASSIUM Routine 04/18/2025 1:39 PM EDT POC SODIUM Routine 04/18/2025 1:39 PM EDT POC TCO2 Routine 04/18/2025 1:39 PM EDT POC O2 SAT Routine 04/18/2025 1:39 PM EDT POC BASE EXCESS Routine 04/18/2025 1:39 PM EDT POC HCO3 Routine 04/18/2025 1:39 PM EDT POC PO2 Routine 04/18/2025 1:39 PM EDT POC PCO2 Routine 04/18/2025 1:39 PM EDT POCT PH Routine 04/18/2025 1:39 PM EDT POCT INR Routine 04/18/2025 1:33 PM EDT TRANSFUSE FRESH FROZEN PLASMA Routine 04/18/2025 1:30 PM EDT Pre-transplant evaluation for chronic liver disease TRANSFUSE FRESH FROZEN PLASMA Routine 04/18/2025 1:19 PM EDT Pre-transplant evaluation for chronic liver disease TRANSFUSE RED BLOOD CELLS Routine 2024 1:19 PM EDT Pre-transplant evaluation for chronic liver disease TRANSFUSE FRESH FROZEN PLASMA Routine 04/18/2025 1:00 PM EDT Pre-transplant evaluation for chronic liver disease POC SAMPLE TYPE Routine 04/18/2025 12:56 PM EDT POC ANION GAP Routine 04/18/2025 12:56 PM EDT POC CHLORIDE Routine 04/18/2025 12:56 PM EDT POCT HEMOGLOBIN Routine 04/18/2025 12:56 PM EDT POCT HEMATOCRIT Routine 04/18/2025 12:56 PM EDT POC LACTATE Routine 04/18/2025 12:56 PM EDT POCT GLUCOSE Routine 04/18/2025 12:56 PM EDT POCT CALCIUM, TOTAL Routine 04/18/2025 12:56 PM EDT POC POTASSIUM Routine 04/18/2025 12:56 PM EDT POC SODIUM Routine 04/18/2025 12:56 PM EDT POC TCO2 Routine 04/18/2025 12:56 PM EDT POC O2 SAT Routine 04/18/2025 12:56 PM EDT POC BASE EXCESS Routine 04/18/2025 12:56 PM EDT POC HCO3 Routine 04/18/2025 12:56 PM EDT POC PO2 Routine 04/18/2025 12:56 PM EDT POC PCO2 Routine 04/18/2025 12:56 PM EDT POCT PH Routine 04/18/2025 12:56 PM EDT POCT INR Routine 04/18/2025 12:51 PM EDT TRANSFUSE RED BLOOD CELLS Routine 2024 12:27 PM EDT Pre-transplant evaluation for chronic liver disease TRANSFUSE RED BLOOD CELLS Routine 2024 12:19 PM EDT Pre-transplant evaluation for chronic liver disease POC SAMPLE TYPE Routine 04/18/2025 12:11 PM EDT POC ANION GAP Routine 04/18/2025 12:11 PM EDT POC CHLORIDE Routine 04/18/2025 12:11 PM EDT POCT HEMOGLOBIN Routine 04/18/2025 12:11 PM EDT POCT HEMATOCRIT Routine 04/18/2025 12:11 PM EDT POC LACTATE Routine 04/18/2025 12:11 PM EDT POCT GLUCOSE Routine 04/18/2025 12:11 PM EDT POCT CALCIUM, TOTAL Routine 04/18/2025 12:11 PM EDT POC POTASSIUM Routine 04/18/2025 12:11 PM EDT POC SODIUM Routine 04/18/2025 12:11 PM EDT POC TCO2 Routine 04/18/2025 12:11 PM EDT POC O2 SAT Routine 04/18/2025 12:11 PM EDT POC BASE EXCESS Routine 04/18/2025 12:11 PM EDT POC HCO3 Routine 04/18/2025 12:11 PM EDT POC PO2 Routine 04/18/2025 12:11 PM EDT POC PCO2 Routine 04/18/2025 12:11 PM EDT POCT PH Routine 04/18/2025 12:11 PM EDT POCT INR Routine 04/18/2025 12:05 PM EDT POC SAMPLE TYPE Routine 04/18/2025 11:16 AM EDT POC ANION GAP Routine 04/18/2025 11:16 AM EDT POC CHLORIDE Routine 04/18/2025 11:16 AM EDT POCT HEMOGLOBIN Routine 04/18/2025 11:16 AM EDT POCT HEMATOCRIT Routine 04/18/2025 11:16 AM EDT POC LACTATE Routine 04/18/2025 11:16 AM EDT POCT GLUCOSE Routine 04/18/2025 11:16 AM EDT POCT CALCIUM, TOTAL Routine 04/18/2025 11:16 AM EDT POC POTASSIUM Routine 04/18/2025 11:16 AM EDT POC SODIUM Routine 04/18/2025 11:16 AM EDT POC TCO2 Routine 04/18/2025 11:16 AM EDT POC O2 SAT Routine 04/18/2025 11:16 AM EDT POC BASE EXCESS Routine 04/18/2025 11:16 AM EDT POC HCO3 Routine 04/18/2025 11:16 AM EDT POC PO2 Routine 04/18/2025 11:16 AM EDT POC PCO2 Routine 04/18/2025 11:16 AM EDT POCT PH Routine 04/18/2025 11:16 AM EDT POC SAMPLE TYPE Routine 04/18/2025 11:13 AM EDT POC ANION GAP Routine 04/18/2025 11:13 AM EDT POC CHLORIDE Routine 04/18/2025 11:13 AM EDT POCT HEMOGLOBIN Routine 04/18/2025 11:13 AM EDT POCT HEMATOCRIT Routine 04/18/2025 11:13 AM EDT POC LACTATE Routine 04/18/2025 11:13 AM EDT POCT GLUCOSE Routine 04/18/2025 11:13 AM EDT POCT CALCIUM, TOTAL Routine 04/18/2025 11:13 AM EDT POC POTASSIUM Routine 04/18/2025 11:13 AM EDT POC SODIUM Routine 04/18/2025 11:13 AM EDT POC TCO2 Routine 04/18/2025 11:13 AM EDT POC O2 SAT Routine 04/18/2025 11:13 AM EDT POC BASE EXCESS Routine 04/18/2025 11:13 AM EDT POC HCO3 Routine 04/18/2025 11:13 AM EDT POC PO2 Routine 04/18/2025 11:13 AM EDT POC PCO2 Routine 04/18/2025 11:13 AM EDT POCT PH Routine 04/18/2025 11:13 AM EDT POCT INR Routine 04/18/2025 11:07 AM EDT INSERT ARTERIAL LINE Routine 04/18/2025 10:21 AM EDT POC SAMPLE TYPE Routine 04/18/2025 10:17 AM EDT POC ANION GAP Routine 04/18/2025 10:17 AM EDT POC CHLORIDE Routine 04/18/2025 10:17 AM EDT POCT HEMOGLOBIN Routine 04/18/2025 10:17 AM EDT POCT HEMATOCRIT Routine 04/18/2025 10:17 AM EDT POC LACTATE Routine 04/18/2025 10:17 AM EDT POCT GLUCOSE Routine 04/18/2025 10:17 AM EDT POCT CALCIUM, TOTAL Routine 04/18/2025 10:17 AM EDT POC POTASSIUM Routine 04/18/2025 10:17 AM EDT POC SODIUM Routine 04/18/2025 10:17 AM EDT POC TCO2 Routine 04/18/2025 10:17 AM EDT POC O2 SAT Routine 04/18/2025 10:17 AM EDT POC BASE EXCESS Routine 04/18/2025 10:17 AM EDT POC HCO3 Routine 04/18/2025 10:17 AM EDT POC PO2 Routine 04/18/2025 10:17 AM EDT POC PCO2 Routine 04/18/2025 10:17 AM EDT POCT PH Routine 04/18/2025 10:17 AM EDT POCT INR Routine 04/18/2025 10:12 AM EDT POCT INR Routine 04/18/2025 9:19 AM EDT POC SAMPLE TYPE Routine 04/18/2025 9:17 AM EDT POC ANION GAP Routine 04/18/2025 9:17 AM EDT POC CHLORIDE Routine 04/18/2025 9:17 AM EDT POCT HEMOGLOBIN Routine 04/18/2025 9:17 AM EDT POCT HEMATOCRIT Routine 04/18/2025 9:17 AM EDT POC LACTATE Routine 04/18/2025 9:17 AM EDT POCT GLUCOSE Routine 04/18/2025 9:17 AM EDT POCT CALCIUM, TOTAL Routine 04/18/2025 9:17 AM EDT POC POTASSIUM Routine 04/18/2025 9:17 AM EDT POC SODIUM Routine 04/18/2025 9:17 AM EDT POC TCO2 Routine 04/18/2025 9:17 AM EDT POC O2 SAT Routine 04/18/2025 9:17 AM EDT POC BASE EXCESS Routine 04/18/2025 9:17 AM EDT POC HCO3 Routine 04/18/2025 9:17 AM EDT POC PO2 Routine 04/18/2025 9:17 AM EDT POC PCO2 Routine 04/18/2025 9:17 AM EDT POCT PH Routine 04/18/2025 9:17 AM EDT HC ANESTHESIA PULMONARY ARTERY CATHETER Routine 04/18/2025 8:30 AM EDT SWAN MEHREEN Routine 04/18/2025 8:30 AM EDT HC ANESTHESIA DUAL LUMEN INTRODUCER (MAC) CENTRAL LINE KIT Routine 04/18/2025 8:30 AM EDT CENTRAL LINE SINGLE LUMEN PERFORMABLE Routine 04/18/2025 8:30 AM EDT INSERT ARTERIAL LINE Routine 04/18/2025 8:20 AM EDT TRANSPLANT LIVER 04/18/2025 8:17 AM EDT Pre-transplant evaluation for chronic liver disease Special Needs cell saver, liver transplant set, 10 units of RBC & FFP -#LW POC HCG QUALITATIVE, URINE Routine 04/18/2025 6:16 AM EDT VENOUS BLOOD GAS, LINE/SYRINGE Routine 04/18/2025 6:03 AM EDT Pre-transplant evaluation for chronic liver disease RENAL FUNCTION PANEL W/EGFR Routine 04/18/2025 6:03 AM EDT Pre-transplant evaluation for chronic liver disease TEG-STANDARD GLOBAL HEMOSTASIS (RAPID TEG WITH HEPARIN [...] liver disease HEPATITIS B CORE ANTIBODY Routine 2024 6:03 AM EDT Pre-transplant evaluation for chronic [...] PATHOLOGY EXAM Routine 04/18/20 12:00 AM EDT HOX - ABO TYPING REPORT Routine 04/15/20 11:48 AM EDT ANTIBODY SCREEN Routine 04/11/2025 2:53 PM EDT Pre-transplant evaluation for chronic liver disease ABO/RH Routine 04/11/2025 2:53 PM EDT Pre-transplant evaluation for chronic liver disease CMV IGM ANTIBODY Routine 04/11/2025 2:53 PM EDT CMV IGG ANTIBODY Routine 04/11/2025 2:53 PM EDT HEPATITIS B SURFACE ANTIBODY, QUANTITATIVE Routine 04/11/2025 2:53 PM EDT Pre-transplant evaluation for chronic liver disease HEPATITIS B VIRUS (HBV), REAL-TIME PCR, QUANT Routine 04/11/2025 2:53 PM EDT Pre-transplant evaluation for chronic liver disease VITAMIN D 25 HYDROXY Routine 04/11/2025 2:53 PM EDT Pre-transplant evaluation for chronic liver disease TREPONEMA PALLIDUM AB WITH REFLEX Routine 04/11/2025 [...] liver disease HEPATITIS B CORE ANTIBODY Routine 2024 2:53 PM EDT Pre-transplant evaluation for chronic [...] evaluation for chronic liver disease CBC Routine 04/11/2025 2:53 PM EDT Pre-transplant evaluation for chronic liver disease Alcoholic cirrhosis of liver with ascites (CMS-HCC) PROTIME-INR Routine 04/11/2025 2:53 PM EDT Pre-transplant evaluation for chronic liver disease Alcoholic cirrhosis of liver with ascites (CMS-HCC) COMPREHENSIVE METABOLIC PANEL Routine 04/11/2025 2:35 PM EDT Alcoholic cirrhosis of liver with ascites (CMS-HCC) Encounter for pre-transplant evaluation for liver transplant TB (tuberculosis) HCG, QUANTITATIVE, Routine 04/11/2025 2:35 PM EDT Pre-transplant evaluation for chronic liver disease MAGNESIUM Routine 04/11/2025 2:35 PM EDT Pre-transplant evaluation for chronic liver disease HEPATIC FUNCTION PANEL Routine 2:35 PM EDT Pre-transplant evaluation for chronic liver disease Alcoholic cirrhosis of liver with ascites (CMS-HCC) DXA BONE DENSITY AXIAL SKELETON Routine 04/11/2025 11:15 AM EDT 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) Alcoholic cirrhosis of liver with ascites (CMS-HCC) HOX - HLA CROSSMATCH REPORT Routine 04/08/2025 9:[address] CHEST WO CONTRAST STAT 03/16/2025 3:23 PM EDT Alcoholic cirrhosis of liver with ascites (CMS-HCC) Pre-transplant evaluation for chronic liver disease RENAL FUNCTION PANEL W/O EGFR Routine 03/08/2025 1:13 PM EDT PROTIME-INR Routine 03/08/2025 1:13 PM EDT CBC AND DIFFERENTIAL Routine 03/08/2025 1:13 PM EDT HEPATIC FUNCTION PANEL Routine 1:13 PM EDT from Last 3 Months Results * Perfusion Record - scan (05/21/2025 4:02 PM EST) us Scanning Uchhim SCAN DOCS - NO RESULTS Final Res ult * Phosphatidylethanol Confirmation, B (05/17/2025 10:14 AM EST) PETH 16:0/18.1 (POPETH) <10 Cutoff: 10 ng/mL 05/19/2025 1:41 PM EST [facility] Comment: Phosphatidylethanol (PEth) homologues result interpretation [...] Cutoff: 10 ng/mL 05/19/2025 1:41 PM EST [facility] Comment: PEth 16:0/18:2 (PLPEth) Reference ranges are not well established PEth Interpretation Negative. 05/19 1:41 PM EST [facility] Comment: ADDITIONAL INFORMATION This report is intended for use in clinical monitoring and management of patients. It is not intended for use in employment-related testing. This test was developed and its performance characteristics determined by [facility] in a manner consistent with CLIA requirements. This test has not been cleared or approved by the U.S. Food and Drug Administration. Test Performed by: [facility] [id number] [place] [address] Meter Changes Records Clerk: Alexia David Ph.D.; CLIA# [id number] Whole Blood 05/17/2025 10:1 4 AM EST 05/19/2025 1:41 PM EST Narrative [facility] - 05/19/2025 1:41 PM EST One time lab order to be collected with next set of standing liver transplant labs. Please fax all results to [phone]. Call critical results to [phone]. us Quan Yates III, MD LAB BLOOD ORDERABLE S Final Result [facility] [address] [place], [place] [address] * (ABNORMAL) Hepatic Function Panel (05/17/2025 10:14 AM EST) Only the most recent of28 resultswithin the time period is included. Total Bilirubin 1.0 0.0 - 1.5 mg/dL 05/17/2025 11:55 AM EST [facility] Bilirubin, Direct 0.37 0.00 - 0.40 mg/dL 05/17/2025 11:55 AM EST [facility] AST 20 13 - 39 U/L 05/17/2025 11:55 AM EST [facility] ALT 27 7 - 52 U/L 05/17/2025 11:55 AM EST [facility] Alkaline Phosphatase 249(H) 36 - 125 U/L 05/17/2025 11:55 AM EST [facility] Total Protein 5.5(L) 6.4 - 8.9 g/dL 05/17/2025 11:55 AM EST [facility] Albumin 3.5 3.5 - 5.7 g/dL 05/17/2025 11:55 AM EST [facility] Bilirubin, Indirect 0.63 0.00 - 1.10 mg/dL 05/17/2025 11:55 AM EST [facility] Plasma 05/17/2025 10:1 4 AM EST 05/17/2025 11:11 AM EST Narrative [facility]ALTH LAB - 05/17/2025 11:55 AM EST Standing liver transplant labs. Please fax results to [phone]. Call critical results to [phone]. us Quan Yates III, MD LAB BLOOD ORDERABLE S Final Result [facility] [address] [place] [address], [facility] * (ABNORMAL) Renal Function Panel w/EGFR (05/17/2025 10:14 AM EST) Only the most recent of36 resultswithin the time period is included. Sodium 138 133 - 146 mmol/L 05/17/2025 11:55 AM EST [facility] Potassium 3.9 3.5 - 5.3 mmol/L 05/17/2025 11:55 AM EST [facility] Chloride 105 98 - 110 mmol/L 05/17/2025 11:55 AM EST [facility] CO2 27 21 - 33 mmol/L 05/17/2025 11:55 AM EST [facility] Comment:High lactate dehydro genase concentrations in patient samples may cause falsely increased bicarbonate results. If markedly elevated LDH is observed or suspected, please assess results in conjunction with patient`s clinical presentation. In cases of discrepant results, consider evaluating CO2 in with a blood gas order. Anion Gap 6 3 - 16 mmol/L 05/17/2025 11:55 AM EST [facility] BUN 16 7 - 25 mg/dL 05/17/2025 11:55 AM EST [facility] Creatinine 0.51(L) 0.60 - 1.30 mg/dL 05/17/2025 11:55 AM EST [facility] Glucose 80 70 - 100 mg/dL 05/17/2025 11:55 AM EST [facility] Calcium 8.6 8.6 - 10.3 mg/dL 05/17/2025 11:55 AM EST [facility] Phosphorus 3.1 2.1 - 4.7 mg/dL 05/17/2025 11:55 AM EST [facility] Albumin 3.5 3.5 - 5.7 g/dL 05/17/2025 11:55 AM EST [facility] Osmolality, Calculated 286 278 - 305 mOsm/kg 05/17/2025 11:55 AM EST [facility] EGFR >90 05/17/2025 11:55 AM EST [facility] Comment: As of 2021, the estimated [...] AM EST 05/17/2025 11:11 AM EST Narrative [facility] - 05/17/2025 11:55 AM EST Standing liver transplant labs. Please fax results to [phone]. Call critical results to [phone]. us Quan Yates III, MD LAB BLOOD ORDERABLE S Final Result [facility] [address] [place] [address], [facility] * Hepatitis B Virus (HBV), PCR, Quant (05/17/2025 10:14 AM EST) Only the most recent of2 resultswithin the time period is included. Hep B Viral DNA IU/ML Not Detected IU/mL 05/20/2025 12:43 PM EST [facility] Comment:Test methodology for HBV DNA quantification is an FDA-approved nucleic acid amplification assay. The lower limit of quantitation (LLOQ) is 10 IU/mL. The linear range of the assay is 10-1,000,000,000 IU/mL. The limit of detection (LoD) for plasma is 2.7 IU/mL. The reference range is Not Detected. log 10 HBV as IU/mL See Note log 10 IU/mL 05/20/2025 12:43 PM EST [facility] Comment:HBV DNA not detected . Plasma 05/17/2025 10:1 4 AM EST 05/17/2025 11:49 AM EST Narrative [facility] - 05/20/2025 12:43 PM EST One time lab order to be collected with next set of standing liver transplant labs. UNOS requirement. Please fax all results to [phone]. Call critical results to [phone]. Quan Yates III, MD LAB BLOOD ORDERABLE S Final Result [facility] [address] [place] [address], [facility] * HIV-1 RNA, Quantitative, PCR (05/17/2025 10:14 AM EST) Only the most recent of2 resultswithin the time period is included. HIV 1 Copies Not Detected copies/mL 05/18/2025 1:21 PM EST [facility] Comment:Test methodology for HIV-1 RNA quantification is an FDA-approved nucleic acid amplification assay. The Lower Limit of Quantitation (LLoQ) is 20 copies/mL. The linear range is 20- to 10,000,000 copies/mL. The Limit of Detection (LoD) is 13.2 copies/mL. The reference range is Not Detected. HIV [id number] See Note [id number] /mL 05/18/2025 1:21 PM EST [facility] Comment:HIV-1 RNA not detect ed. Plasma 05/17/2025 10:1 4 AM EST 05/17/2025 11:11 AM EST Narrative [facility] - 05/18/2025 1:21 PM EST One time lab order to be collected with next set of standing liver transplant labs. UNOS requirement. Please fax all results to [phone]. Call critical results to [phone]. Quan Yates III, MD LAB BLOOD ORDERABLE S Final Result Performing Organization Address [facility] Co de Phone Number [facility] [address] * Tacrolimus level (05/17/2025 10:14 AM EST) Only the most recent of17 resultswithin the time period is included. Pathologist [facility] Tacrolimus (LC-MS) 5.2 3.0 - 15.0 ng/mL 05/17/2025 1:56 PM EST [facility] Comment:Performed via liquid chromatography tandem mass spectrometry. Detection limit: 1 ng/mL. Individual target concentrations may vary due to target organ and time after transplant. This test has been developed and its performance characteristics determined by [facility] which is certified under the Clinical [...] AM EST 05/17/2025 11:12 AM EST Narrative [facility] - 05/17/2025 1:56 PM EST Standing liver transplant labs. Please fax results to [phone]. Call critical results to [phone]. Quan Yates III, MD LAB BLOOD ORDERABLE S Final Result Performing Organization Address [facility] Co de Phone Number [facility] [address] * Hepatitis C RNA, Quantitative PCR (05/17/2025 10:14 AM EST) Only the most recent of2 resultswithin the time period is included. Pathologist [facility] International Units Not Detected IU/mL 05/18/2025 12:36 PM EST [facility] Comment:Test methodology for HCV RNA quantification is an FDA-approved nucleic acid amplification assay. The Lower Limit of Quantitation (LLOQ) is 15 IU/mL. The linear range of the assay is 15-100,000,000 IU/mL. The Limit of Detection (LoD) is 12.0 IU/mL for EDTA plasma. The reference range is Not Detected. IU log10 See Note log 10 IU/mL 05/18/2025 12:36 PM EST [facility] Comment:HCV RNA not detected . Plasma 05/17/2025 10:1 4 AM EST 05/17/2025 11:11 AM EST Narrative [facility] - 05/18/2025 12:36 PM EST One time lab order to be collected with next set of standing liver transplant labs. UNOS requirement. Please fax all results to [phone]. Call critical results to [phone]. us Quan Yates III, MD LAB BLOOD ORDERABLE S Final Result [facility] [address] [place] [address], [facility] * Differential (05/17/2025 10:14 AM EST) Only the most recent of4 resultswithin the time period is included. Neutrophils Relative 61.3 40.0 - 80.0 % 05/17/2025 11:48 AM EST [facility] Lymphocytes Relative 25.5 15.0 - 45.0 % 05/17/2025 11:48 AM EST [facility] Monocytes Relative 9.8 0.0 - 12.0 % 05/17/2025 11:48 AM EST [facility] Eosinophils Relative 2.5 0.0 - 8.0 % 05/17/2025 11:48 AM EST [facility] Basophils Relative 0.9 0.0 - 1.0 % 05/17/2025 11:48 AM EST [facility] nRBC 0 0 - 0 /100 WBC 05/17/2025 11:48 AM EST [facility] Neutrophils Absolute 2,759 1,520 - 8,640 /uL 05/17/2025 11:48 AM EST [facility] Lymphocytes Absolute 1,148 570 - 4,860 /uL 05/17/2025 11:48 AM EST [facility] Monocytes Absolute 441 0 - 1,296 /uL 05/17/2025 11:48 AM EST [facility] Eosinophils Absolute 113 0 - 864 /uL 05/17/2025 11:48 AM EST [facility] Basophils Absolute 41 0 - 108 /uL 05/17/2025 11:48 AM EST [facility] Whole Blood 05/17/2025 10:1 4 AM EST 05/17/2025 11:13 AM EST Narrative [facility] - 05/17/2025 11:48 AM EST Standing liver transplant labs. Please fax results to [phone]. Call critical results to [phone]. us Quan Yates III, MD LAB BLOOD ORDERABLE S Final Result [facility] LAB [address] [id number], [facility] * (ABNORMAL) CBC (05/17/2025 10:14 AM EST) Only the most recent of38 resultswithin the time period is included. WBC 4.5 3.8 - 10.8 10E3/uL 05/17/2025 11:48 AM EST [facility] RBC 2.91(L) 3.80 - 5.10 10E6/uL 05/17/2025 11:48 AM EST [facility] Hemoglobin 8.7(L) 11.7 - 15.5 g/dL 05/17/2025 11:48 AM [facility] Hematocrit 26.8(L) 35.0 - 45.0 % 05/17/2025 11:48 AM [facility] MCV 92.0 80.0 - 100.0 fL 05/17/2025 11:48 AM EST [facility] MCH 29.8 27.0 - 33.0 pg 05/17/2025 11:48 AM EST [facility] MCHC 32.4 32.0 - 36.0 g/dL 05/17/2025 11:48 AM [facility] RDW 17.6(H) 11.0 - 15.0 % 05/17/2025 11:48 AM [facility] Platelets 149 140 - 400 10E3/uL 05/17/2025 11:48 AM [facility] MPV 9.6 7.5 - 11.5 fL 05/17/2025 11:48 AM EST [facility] Whole Blood 05/17/2025 10:1 4 AM EST 05/17/2025 11:13 AM EST Narrative HEALTH LAB - 05/17/2025 11:48 AM EST Standing liver transplant labs. Please fax results to [phone]. Call critical results to [phone]. us Quan Yates III, MD LAB BLOOD ORDERABLE S Final Result Performing Organization Address City/[facility]/ZIP Co de Phone Number [facility] [address] [facility] * Magnesium (05/17/2025 10:14 AM EST) Only the most recent of37 resultswithin the time period is included. Magnesium 1.6 1.5 - 2.5 mg/dL 05/17/2025 11:55 AM EST [facility] Plasma 05/17/2025 10:1 4 AM EST 05/17/2025 11:11 AM EST Narrative HEALTH LAB - 05/17/2025 11:55 AM EST One time lab order to be collected with next set of standing liver transplant labs. Please fax all results to [phone]. Call critical results to [phone]. us Quan Yates III, MD LAB BLOOD ORDERABLE S Final Result Performing Organization Address City/[facility]/ZIP Co de Phone Number [facility] [address] * (ABNORMAL) CBC and differential (05/12/2025 9:32 AM EST) Only the most recent of2 resultswithin the time period is included. Hemoglobin 8.1(A) 12.0 - 16.0 g/dL Hematocrit [...] 5.20 10^6/ L WBC 5.7 10^3/mL Blood Result [facility] Historical Provider MD LAB BLOOD ORDERABLES Rosa l Result * (ABNORMAL) Renal Function Panel w/o EGFR (05/12/2025 9:32 AM EST) Only the most recent of2 resultswithin the time period is included. Glucose 69 BUN 16 CO2 23(A) 13 - 22 mmol/L Creatinine 0.40 Potassium 4.7 Sodium 131 Chloride 4.7 Phosphorus 3.1 2.5 - 4.9 mg/dL Calcium 69 EGFR 182 mg/dL Albumin 3.1(A) 3.5 - 5.0 g/dL Blood Result [facility] Provider MD LAB BLOOD ORDERABLES Rosa l Result * EKG - scan (05/04/2025 7:57 AM EST) us Scanning [facility] SCAN DOCS - NO RESULTS Final Res ult * Blood Transfusion - scan (05/04/2025 7:49 AM EST) us Scanning [facility] SCAN DOCS - NO RESULTS Final Res ult * Prepare RBC, leukoreduced, 1 Units (05/04/2025 6:15 AM EST) Only the most recent of10 resultswithin the time period is included. Product Code W3558Y53 HCLL Unit Number [id number] HCLL Dispense Status Presumed Transfused_PT HCLL Blood Expiration Date [id number] HCLL Coding System [id number] HCLL Blood Bank Product Gloria Chen MD BLOOD BANK PRODUCT ORDERABLES Fi nal Result Performing Organization Address [facility]/ZIP Co de Phone Number HCLL * Transfuse RBC Transfusion Rate: Per dept routine (05/03/2025 2:58 PM EST) Only the most recent of8 resultswithin the time period is included. Gloria Chen MD NURSING TREATMENT ORDERABLES - B LOOD ADMIN Final Result Performing Organization Address City/[facility]/ZIP Co de Phone Number EXTERNAL * (ABNORMAL) POC Glucose Monitoring Device (05/03/2025 12:17 PM EST) Only the most recent of69 resultswithin the time period is included. POC Glucose Monitoring Device 176(H) 70 - 100 mg/dL 05/03/2025 12:18 PM EST [facility] Blood 05/03/2025 12:1 7 PM EST 05/03/2025 12:18 PM EST Jarrod Goode MD POINT OF CARE TEST ORDERABLES Fi nal Result Performing Organization Address [facility] Co de Phone Number [facility] [address] * ABO/Rh (05/03/2025 9:05 AM EST) Only the most recent of4 resultswithin the time period is included. ABO Grouping O 05/03/2025 9:58 AM EST [facility] Rh Type Positive 05/03/2025 9:58 AM EST [facility] Blood 05/03/2025 9:05 AM EST 05/03/2025 9:16 AM EST Gloria Chen MD BLOOD BANK TEST ORDERABLES Final Result Performing Organization Address [facility] Co de Phone Number [facility] [address] * Antibody Screen (05/03/2025 9:05 AM EST) Only the most recent of4 resultswithin the time period is included. Antibody Screen Negative 05/03/2025 10:12 AM EST [facility] Blood 05/03/2025 9:05 AM EST 05/03/2025 9:16 AM EST Narrative [facility] - 05/03/2025 10:29 AM EST Testing performed by [facility] Transfusion Service Gloria Chen MD BLOOD BANK TEST ORDERABLES Final Result [facility] [address] [facility] * (ABNORMAL) Triglycerides (05/02/2025 5:34 AM EST) Only the most recent of2 resultswithin the time period is included. Triglycerides 254(H) 10 - 149 mg/dL 05/02/2025 6:11 AM EST [facility] Plasma 05/02/2025 5:34 AM EST 05/02/2025 5:42 AM EST Gloria Chen MD LAB BLOOD ORDERABLES Final Resul t Performing Organization Address City/[facility]/ZIP Co de Phone Number [facility] [address] [facility] * MRI Abdomen W and WO [...] IMG MRI ORDERABLES Fin al Result * Protime-INR, STAT (05/01/2025 10:21 AM EST) Only the most recent of19 resultswithin the time period is included. Protime 13.8 12.1 - 15.1 seconds 05/01/2025 11:14 AM EST [facility] INR 1.0 0.9 - 1.1 05/01/2025 11:14 AM EST [facility] Comment: RECOMMENDED THERAPEUTIC RANGES USING INR : Stable oral anticoagulant therapy: 2.0 - 3.0 Mechanical prosthetic heart valve: 2.5 - 3.5 Recurrent acute myocardial infarction: 2.5 - 3.5 Plasma 05/01/2025 10:2 1 AM EST 05/01/2025 10:29 AM EST Shannon Johns MD LAB BLOOD ORDERABLES Final Res ult Performing Organization Address City/State/[facility] Co de Phone Number [facility] [address] * US Duplex [id number]-Ovw-Etzunzq Comp (04/29/2025 11:18 AM EST) Only the most recent of5 resultswithin the time period is included. 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 ABDOMINAL DOPPLER Patent hepatic vasculature with normal arterial waveforms. Report Verified by: Veronique Dick MD at 04/29/2025 12:45 PM EST Narrative 04/29/2025 12:45 PM EST EXAM: US ABDOMEN LIMITED EXAM: US DUPLEX [id number] COMPLETE INDICATION: Post-op liver transplant, right lobe [...] EXAM: US ABDOMEN LIMITED EXAM: US DUPLEX [id number] COMPLETE INDICATION: Post-op liver transplant, right lobe [...] at 04/29/2025 12:45 PM EST us Giovanny Busch MD IMG US ORDERABLES Final Result * US Abdomen Limited (04/29/2025 11:18 AM EST) Only the most recent of5 resultswithin the time period is included. Anatomical Region Laterality Modality Abdomen, Pelvis Ultrasound 04/29/2025 10:4 2 AM EST Impressions 04/29/2025 12:45 PM EST IMPRESSION: ABDOMINAL ULTRASOUND Normal sonographic appearance of the transplant liver. ABDOMINAL DOPPLER Patent hepatic vasculature with normal arterial waveforms. Report Verified by: Veronique Dick MD at 04/29/2025 12:45 PM EST Narrative 04/29/2025 12:45 PM EST EXAM: US ABDOMEN LIMITED EXAM: US DUPLEX [id number] COMPLETE INDICATION: Post-op liver transplant, right lobe [...] EXAM: US ABDOMEN LIMITED EXAM: US DUPLEX [id number] COMPLETE INDICATION: Post-op liver transplant, right lobe [...] at 04/29/2025 12:45 PM EST us Giovanny Busch MD IMG US ORDERABLES Final Result * ECHO COMPLETE (04/29/2025 10:17 AM EST) Anatomical Region Laterality Modality Chest Ultrasound 04/29/2025 9:47 AM EST Narrative 04/29/2025 2:07 PM EST * [facility]* [address] [place] [id number] Transthoracic Echocardiogram Patient: Mindy Wade Room: Height: 65in MR Number: [id number] : 1990 Weight: 157lb Account: [id number] Gender: F BP: Study Date: 04/29/2025 Age: 35 BSA: 1.78m^2 Referring physician: Interpreting physician: Chantelle Perez MD PERFORMING Chantelle Perez MD [employer] ARCHITECT Kalie Lopez Procedure: Order: Indications: Shortness of [...] --------- Vol, S (N) 25 ml 22 - 52 Vol/bsa, S (L) 14 ml/m^2 16 - 34 Vol, ES, 1-p (N) 24 ml 22 - 52 A4C Vol/bsa, ES, (N) 14 ml/m^2 11 - 40 1-p A4C Vol, ES, 1-p (N) 25 ml 22 52 A2C Vol/bsa, ES, (N) 14 ml/m^2 [...] Reviewed and confirmed by Chantelle Perez MD [id number] Procedure Note Chantelle Perez MD - 05/02/2025 * [facility]* [address] [place] [address] Transthoracic Echocardiogram Patient: Mindy Wade Room: Height: 65in MR Number: [id number] : 1990 Weight:157lb Account: [id number] Gender: F BP: Study Date: 04/29/2025 Age: 35 BSA:1.78m^2 Referring physician: Interpreting physician: Chantelle Perez MD PERFORMING Chantelle Perez MD [employer] ARCHITECT Kalie Lopez Procedure: Order: Indications: Shortness of [...] 25 ml Vol/bsa, S (L) 14 ml/m^2 34 Vol, [...] Reviewed and confirmed by Chantelle Perez MD [id number] us Maura Hess MD CV ECHO ORDERABLES Fi nal [...] MD IMG CT ORDERABLES Final Result * CORNELIUS Rhythm Strip - Scan (04/27/2025 7:26 PM EST) [facility] - NO RESULTS Final Res ult * ECG 12-lead (MUSE) (04/27/2025 5:57 PM EST) Only the most recent of3 resultswithin the time period is included. 04/27/2025 5:57 PM EST Narrative MUSE - 04/28/2025 11:52 AM EST Ventricular Rate: 77 BPM Atrial Rate: 77 BPM P-R Interval: 102 ms QRS Duration: 90 ms QT: 420 ms QTc: 475 ms P Yulan: 7 degrees R Yulan: 16 degrees T Yulan: 29 degrees Diagnosis Line: SINUS RHYTHM WITH SHORT WI ^ OTHERWISE NORMAL ECG ^ ^ Confirmed by Anthony RAMOS MD ([id number]) on 04/28/2025 11:52:02 AM us Raya CRUZ ECG ORDERABLES Final Result MUSE * X-ray Portable Abdomen AP view (04/27/2025 6:50 AM EST) Only the most recent of2 resultswithin the time period is included. Anatomical Region Laterality Modality Abdomen Radiographic Radha [...] MD at 04/27/2025 7:58 AM EST Giovanny Busch MD IMG DIAGNOSTIC IMAGING ORDERAB LES Final Result * Phosphorus (04/27/2025 3:01 AM EST) Only the most recent of2 resultswithin the time period is included. Phosphorus 2.4 2.1 - 4.7 mg/dL 04/27/2025 3:30 AM EST [facility] Plasma 04/27/2025 3:01 AM EST 04/27/2025 3:09 AM EST Gloria Chen MD LAB BLOOD ORDERABLES Final Resul t [facility] [address] [place] [address], [facility] * (ABNORMAL) Basic metabolic panel (04/27/2025 3:01 AM EST) Sodium 138 133 - 146 mmol/L 04/27/2025 3:30 AM EST [facility] Potassium 4.2 3.5 - 5.3 mmol/L 04/27/2025 3:30 AM EST [facility] Chloride 112(H) 98 - 110 mmol/L 04/27/2025 3:30 AM EST [facility] CO2 24 21 - 33 mmol/L 04/27/2025 3:30 AM EST [facility] Comment:High lactate dehydro genase concentrations in patient samples may cause falsely increased bicarbonate results. If markedly elevated LDH is observed or suspected, please assess results in conjunction with patient`s clinical presentation. In cases of discrepant results, consider evaluating CO2 in with a blood gas order. Anion Gap 2(L) 3 - 16 mmol/L 04/27/2025 3:30 AM EST [facility] BUN 17 7 - 25 mg/dL 04/27/2025 3:30 AM EST [facility] Creatinine 0.57(L) 0.60 - 1.30 mg/dL 04/27/2025 3:30 AM EST [facility] Glucose 224(H) 70 - 100 mg/dL 04/27/2025 3:30 AM EST [facility] Calcium 7.0(L) 8.6 - 10.3 mg/dL 04/27/2025 3:30 AM EST [facility] Osmolality, Calculated 295 278 - 305 mOsm/kg 04/27/2025 3:30 AM EST [facility] EGFR >90 04/27/2025 3:30 AM EST [facility] Comment: As of 2021, the estimated [...] be reported as >90mL/min/1.73m2. Reference: Usama C, Keatonja M, Chato DC, Suzy ND, Jyoti CA, [...] BLOOD ORDERABLES Final Resul t [facility] [address] [id number], [facility] * VAS Venous Duplex Upper [...] Critical Findings: Critical results were called to Jarrod Rodas RN on 04/26/25 at 11:45. The [...] Critical Findings: Critical results were called to Jarrod Rodas RN on04/26/25 at 11:45. The results were read back and verified. us Julius Becerra MD CV VASCULAR ORDERABLES Final Res ult * Calcium Free, Serum (04/26/2025 12:27 AM EST) Only the most recent of5 resultswithin the time period is included. Free Calcium, Ser 4.46 4.40 - 5.40 mg/dL 04/26/2025 12:54 AM EST [facility] Comment:Free calcium levels vary inversely with pH by approximately 5% for each 0.1 unit of pH change. Assay results have been normalized to pH = 7.40. Serum 04/26/2025 12:2 7 AM EST 04/26/2025 12:36 AM EST Narrative [facility] - 04/26/2025 12:54 AM EST This test has been developed and its performance characteristics determined by [facility] which is certified under the Clinical Laboratory Improvement Amendment of 1988 (CLIA-88) to perform high complexity testing. The test has not been cleared or approved by the US Food and Drug Administration (FDA). The FDA has determined that such clearance is not necessary. The test should be used for clinical purposes and is not regarded as investigational. us Julius Becerra MD LAB BLOOD ORDERABLES Final Resul t [facility] [address] [place] [address], [facility] * Calcium Ionized, Whole Blood (04/25/2025 8:13 AM EST) Only the most recent of4 resultswithin the time period is included. Free Calcium, WB 4.69 4.50 - 5.30 mg/dL 04/25/2025 3:13 PM EST [facility] Blood, Arterial 04/25/2025 8 :13 AM EST 04/25/2025 3:11 PM EST Abdullahi Too DO LAB BLOOD ORDERABLES Final Resul t Performing Organization Address City/[facility] Co de Phone Number [facility] [address] [facility] * Lactic acid, ABG (04/25/2025 8:13 AM EST) Only the most recent of3 resultswithin the time period is included. Lactate, Art 0.6 0.5 - 1.6 mmol/L 04/25/2025 3:13 PM EST [facility] Blood, Arterial 04/25/2025 8 :13 AM EST 04/25/2025 3:11 PM EST Abdullahi [employer] DO LAB BLOOD ORDERABLES Final Resul t Performing Organization Address [facility] Co de Phone Number [facility] [address] [facility] * (ABNORMAL) Blood gas, arterial (04/25/2025 8:13 AM EST) Only the most recent of11 resultswithin the time period is included. O2 Sat, Arterial 100 04/25/2025 8:21 AM EST [facility] FIO2 1L 04/25/2025 8:21 AM EST [facility] pH, Arterial 7.39 7.35 - 7.45 04/25/2025 8:21 AM EST [facility] pCO2, Arterial 38 35 - 45 mm Hg 04/25/2025 8:21 AM EST [facility] pO2, Arterial 133(H) 80 - 100 mm Hg 04/25/2025 8:21 AM EST [facility] HCO3, Arterial 24 22 - 26 mmol/L 04/25/2025 8:21 AM EST [facility] CO2 Content,Arteri al 24 23 - 27 mmol/L 04/25/2025 8:21 AM EST [facility] Base Excess, Arterial -1.8 -2.0 - 3.0 mmol/L 04/25/2025 8:21 AM EST [facility] %HBO2, Arterial 96.5 95.0 - 98.0 % 04/25/2025 8:21 AM EST [facility] Carboxyhemoglo bin, Arterial 2.4 % 04/25/2025 8:21 AM EST [facility] Comment: CARBOXYHEMOGLOBIN (CO) REFERENCE RANGES: Non-Smokers: <2 % Smokers: <8 % TOXIC: >20 % Methemoglobin, Arterial 1.1 0.0 - 1.5 % 04/25/2025 8:21 AM EST [facility] Blood, Arterial 04/25/2025 8 :13 AM EST 04/25/2025 8:18 AM EST us Abdullahi Gage DO LAB BLOOD ORDERABLES Final Resul t Performing Organization Address City/State/[facility] Co de Phone Number [facility] [address] * X-ray Portable Chest (04/24/2025 8:52 AM EST) Only the most recent of6 resultswithin the time period is included. Anatomical Region Laterality Modality Chest Radiographic Radha [...] DO at 04/24/2025 1:10 PM EST us Georgina Henao MD IMG DIAGNOSTIC IMAGING ORDERABLES Final Result * Prepare Platelets, leukoreduced, 1 Units (04/24/2025 6:15 AM EST) Only the most recent of2 resultswithin the time period is included. Product Code Y3540D37 HCLL Unit Number [id number] HCLL Dispense Status Presumed Transfused_PT HCLL Blood Expiration Date HCLL Coding System [id number] HCLL Blood Bank Product us Sergey Mcfarland MD BLOOD BANK PRODUCT O RDERABLES Final Result HCLL * Prepare Fresh Frozen Plasma, 2 Units (04/24/2025 6:15 AM EST) Only the most recent of5 resultswithin the time period is included. Product Code N2808R79 HCLL Unit Number [id number] HCLL Dispense Status Presumed Transfused_PT HCLL Blood Expiration Date HCLL Coding System [id number] HCLL Product Code S4743Y56 HCLL Unit Number [id number] HCLL Dispense Status Presumed Transfused_PT HCLL Blood Expiration Date HCLL Coding System [id number] HCLL Blood Bank Product Sergey Mcfarland MD BLOOD BANK PRODUCT O RDERABLES Final Result HCLL * Prepare Cryoprecipitate, 1 Units (04/24/2025 6:15 AM EST) Only the most recent of3 resultswithin the time period is included. Product Code L6502Q57 HCLL Unit Number [id number] HCLL Dispense Status Presumed Transfused_PT HCLL Blood Expiration Date HCLL Coding System [id number] HCLL Product Code J0999B35 HCLL Unit Number [id number] HCLL Dispense Status Presumed Transfused_PT HCLL Blood Expiration Date HCLL Coding System [id number] HCLL Blood Bank Product Sergey Mcfarland MD BLOOD BANK PRODUCT O RDERABLES Final Result Performing Organization Address [facility] Co de Phone Number HCLL * TEG-Bypass/ECMO/Liver HN (Factor function, Platelet/Fibrin Clot Strength w/Clot Breakdown, Heparinase In All Channels) (04/24/2025 4:36 AM EST) Only the most recent of10 resultswithin the time period is included. Citrated Kaolin Reaction Time (TEGECMOLIVER) 6.2 4.6 - 9.1 minutes 04/24/2025 6:00 AM EST [facility] Citrated Kaolin W/Heparinase Reaction Time (TEGECMOLIVER) 5.3 4.3 - 8.3 minutes 04/24/2025 6:00 AM EST [facility] Citrated Kaolin Maximum Amplitude (TEGECMOLIVER) 58.2 52.0 - 69.0 mm 04/24/2025 6:00 AM EST [facility] Citrated Functional Fibrinogen W/Heparinase Maximum Amplitude(TEGEC MOLIVER) 19.2 15.0 - 34.0 mm 04/24/2025 6:00 AM EST [facility] Citrated Rapid Teg W/Heparinase Maximum Amplitude (TEGECMOLIVER) 55.6 53.0 - 69.0 mm 04/24/2025 6:00 AM EST [facility] Citrated Kaolin w/Heparinase Percent Lysis (TEGECMOLIVER) 0.0 0.0 - 3.2 % 04/24/2025 6:00 AM EST [facility] Whole Blood (Citrate) 04/24/2025 4:36 AM EST 04/24/2025 4:44 AM EST Julius Becerra MD LAB BLOOD ORDERABLES Final Resul t Performing Organization Address City/[facility] Co de Phone Number [facility] [address] [facility] * Lactic Acid (04/23/2025 11:30 AM EDT) Only the most recent of10 resultswithin the time period is included. Lactate 1.0 0.5 - 2.2 mmol/L 04/23/2025 12:09 PM EDT [facility] Plasma 04/23/2025 11:3 0 AM EDT 04/23/2025 11:43 AM EDT Maura Hess MD LAB BLOOD ORDERABLES Final Result Performing Organization Address [facility] Co de Phone Number [facility] [address] [facility] * Routine Culture plus Stain (Surgical Swab) (04/23/2025 9:53 AM EDT) Gram Stain Result Rare Polymorphonuclear Leukocytes Seen [facility] Gram Stain Result No Organisms Seen; [facility] Culture Result No Growth After 3 Days [facility] Swab (specimen) ABDOMEN / Unknown 025 9:53 AM EDT Comment:Ascities fluid swab Narrative [facility] - 04/26/2025 8:57 AM EST Ascities fluid swab Ascities fluid swab 1 Alejandra Wilsno MD MICROBIOLOGY - GENERAL ORDER RANDALL Final Result Performing Organization Address City/[facility] Co de Phone Number [facility] [address] * Fungus culture (Surgical Swab) (04/23/2025 9:53 AM EDT) Culture Result No Fungus Isolated At 4 Weeks [facility] Swab (specimen) ABDOMEN / Unknown 025 9:53 AM EDT Comment:[facility] fluid swab Narrative [facility]ALTH [facility] - 05/23/2025 8:20 AM EST [facility]ities fluid swab Ascities fluid swab 1 Alejandra Wilson MD MICROBIOLOGY - GENERAL ORDER RANDALL Final Result Performing Organization Address [facility] Co de Phone Number [facility] [address] * Anaerobic culture (Surgical Swab) (04/23/2025 9:53 AM EDT) Culture Result No Anaerobes Isolated in 5 Days [facility] Swab (specimen) ABDOMEN / Unknown 9:53 AM EDT Comment:Ascities fluid swab Narrative [facility] - 04/28/2025 12:31 PM EST Ascities fluid swab Ascities fluid swab 1 Alejandra Wilson MD MICROBIOLOGY - GENERAL ORDER RANDALL Final Result Performing Organization Address [facility] Co de Phone Number [facility] [address] * (ABNORMAL) Arterial Blood Gas Panel (04/23/2025 9:37 AM EDT) Only the most recent of2 resultswithin the time period is included. O2Sat (ABGP) 99 04/23/2025 9:50 AM EDT [facility] pH (ABGP) 7.34(L) 7.35 - 7.45 04/23/2025 9:50 AM EDT [facility] PCO2 (ABGP) 43 35 - 45 mm Hg 04/23/2025 9:50 AM EDT [facility] PO2 (ABGP) 179(H) 80 - 100 mm Hg 04/23/2025 9:50 AM EDT [facility] HCO3 (ABGP) 23 22 - 26 mmol/L 04/23/2025 9:50 AM EDT [facility] CO2 Content (ABGP) 25 23 - 27 mmol/L 04/23/2025 9:50 AM EDT [facility] Base Excess (ABGP) -2.5(L) -2.0 - 3.0 mmol/L 04/23/2025 9:50 AM EDT [facility] Sodium (ABGP) 133(L) 136 - 146 mEq/L 04/23/2025 9:50 AM T [facility] Potassium (ABGP) 5.1(H) 3.5 - 5.0 mEq/L 04/23/2025 9:50 AM [facility] Comment:In the event of in-v itro hemolysis, potassium results may be falsely elevated. Always interpret lab results in conjunction with clinical findings. If hemolysis is suspected, a serum sample may be collected for repeat assessment of potassium. Calcium, Free (ABGP) 4.56 4.50 - 5.30 mg/dL 04/23/2025 9:50 AM [facility] Glucose (ABGP) 157(H) 70 - 100 mg/dL 04/23/2025 9:50 AM [facility] Comment:There is interferenc e with whole blood glucose results on this method when Hematocrit is <25% or >60%. HCT (ABGP) 27.0(L) 35.0 - 45.0 % 04/23/2025 9:50 AM T [facility] HGB (ABGP) 9.0(L) 12.0 - 16.0 g/dL 04/23/2025 9:50 AM T [facility] %HBO2 (ABGP) 97.8 95.0 - 98.0 % 04/23/2025 9:50 AM [facility] Carboxyhgb (ABGP) 1.4 % 9:50 AM [facility] Comment: CARBOXYHEMOGLOBIN (CO) REFERENCE RANGES: Non-Smokers: <2 % Smokers: <8 % TOXIC: >20 % Methemoglobin (ABGP) 0.0 0.0 - 1.5 % 04/23/2025 9:50 AM EDT [facility] Lactic Acid (ABGP) 1.7(H) 0.5 - 1.6 mmol/L 04/23/2025 9:50 AM EDT [facility] Blood, Arterial 04/23/2025 9 :37 AM EDT 04/23/2025 9:46 AM EDT us Catracho Hui MD LAB BLOOD ORDERABLES Final Result [facility] [address] [place] [address], [facility] * XR Portable Feeding Tube Check (04/23/2025 8:48 AM EDT) Only the most recent of2 resultswithin the time period is included. Anatomical Region Laterality Modality Abdomen, Chest Radiographic [...] MD at 04/23/2025 9:50 AM EDT us Georgina Henao MD IMG DIAGNOSTIC IMAGING ORDERABLES Final Result * (ABNORMAL) Hemoglobin, Blood Gas (04/23/2025 7:45 AM EDT) Only the most recent of2 resultswithin the time period is included. Hgb, blood gas 6.6(L) 12.0 - 16.0 g/dL 04/23/2025 8:00 AM EDT [facility] Blood, Arterial 04/23/2025 7 :45 AM EDT 04/23/2025 7:55 AM EDT Julius Becerra MD LAB BLOOD ORDERABLES Final Resul t [facility] [address] * SMALL BOWEL ENTEROSCOPY (04/23/2025 6:01 AM EDT) 04/23/2025 6:01 AM EDT Narrative [facility] - 04/23/2025 11:33 AM EDT [id number] Procedure Date: 04/23/2025 6:01 AM Patient Name: Mindy Wade Date of : 1990 Admit Type: Inpatient Age: 35 Gender: Female Note Status: Finalized Attending MD: Kelsey Moyer , , [id number] Procedure: Small bowel enteroscopy Indications: Melena Patient Profile: 35-year-old woman post recent right lobe living donor liver transplant with Ronal-en-Y hepatojejunostomy 5 days ago (04/18/25) who developed large volume melena and coffee-ground emesis with hypotension and a drop in Hgb. Providers: Kelsey Moyer, Mike Ventura (Fellow) Referring MD: Jarrod Goode Medicines: Fentanyl and propofol per primary team [...] by the physician, the nurse and the oil processing technician in the procedure room. Mental Status [...] the bleed. Procedure Code(s): --- Professional --- 38056, GC, Small intestinal endoscopy, enteroscopy beyond second portion of duodenum, not including ileum; diagnostic, including collection of specimen(s) by brushing or washing, when performed (separate procedure) Diagnosis Code(s): --- Professional --- K92.2, Gastrointestinal hemorrhage, unspecified K92.1, Melena (includes Hematochezia) CPT copyright 2022 [employer]. All rights reserved. The codes documented in this report are preliminary and upon operator and truck driver review may be revised to meet current compliance requirements. Attending Participation: I was present and participated during the entire procedure from insertion to removal of the endoscope. Kelsey Moyer Kelsey Moyer, 04/23/2025 11:32:48 AM Mike Ventura Mike Ventura, 04/23/2025 7:30:40 AM Total Procedure Duration Time 0 hours 51 minutes 31 seconds Scope In: 6:09:10 AM Scope Out: 7:00:[address] [place] [address], [facility] us Jarrod Goode MD PROCEDURE/MINOR SURGICAL ORDERAB LES Final Result [facility] * CENTRAL LINE SINGLE LUMEN PERFORMABLE (04/23/2025 5:14 AM EDT) Kerrie Darnell MD - 04/23/2025 5:14 AM EDT Kerrie Lang MD 04/23/2025 5:16 AM Central Line [...] procedure chest x-ray ordered: no Complications: none Kerrie Lang MD PROCEDURE/MINOR SURGICAL ORDERAB LES Final Result * Insert Arterial Line (04/23/2025 4:53 AM EDT) Only the most recent of3 resultswithin the time period is included. Kerrie Darnell MD - 04/23/2025 4:53 AM EDT Kerrie Lang MD 04/23/2025 5:12 AM Insert Arterial Line Date/Time: 04/23/2025 4:53 AM Performed by: Any Sarabia MD Authorized by: Kerrie Lang MD Consent: Consent obtained: Emergent situation Furlong protocol: Patient identity confirmed: Hospital-assigned identification number [...] blood flow with catheter in place. us Kerrie Lang MD IV THERAPY ORDERABLES Final Resu lt * (ABNORMAL) Hematocrit, Blood Gas (04/23/2025 4:26 AM EDT) Hct, blood gas 30.0(L) 35.0 - 45.0 % 04/23/2025 4:37 AM EDT [facility] Blood, Arterial 04/23/2025 4 :26 AM EDT 04/23/2025 4:32 AM EDT Sergey Mcfarland MD LAB BLOOD ORDERABLES Final Result [facility] [address] * Potassium, Blood Gas (04/23/2025 4:26 AM EDT) Potassium, Blood Gas 4.6 3.5 - 5.0 mEq/L 04/23/2025 4:37 AM EDT [facility] Comment:In the event of in-v itro hemolysis, potassium results may be falsely elevated. Always interpret lab results in conjunction with clinical findings. If hemolysis is suspected, a serum sample may be collected for repeat assessment of potassium. Blood, Arterial 04/23/2025 4 :26 AM EDT 04/23/2025 4:32 AM EDT Sergey Mcfarland MD LAB BLOOD ORDERABLES Final Result Performing Organization Address [facility] Co de Phone Number [facility] [address] [facility] * (ABNORMAL) Sodium, Blood Gas (04/23/2025 4:26 AM EDT) Sodium, Blood Gas 131(L) 136 - 146 mEq/L 04/23/2025 4:37 AM EDT [facility] Blood, Arterial 04/23/2025 4 :26 AM EDT 04/23/2025 4:32 AM EDT Sergey Mcfarland MD LAB BLOOD ORDERABLES Final Result Performing Organization Address [facility] Co de Phone Number [facility] [address] [facility] * INTUBATION (04/23/2025 3:44 AM EDT) Narrative Kerrie Lang MD - 04/23/2025 3:44 AM EDT Kerrie Lang MD 04/23/2025 4:44 AM Intubation Date/Time: 04/23/2025 3:44 AM Performed by: Any Sarabia MD Authorized by: Kerrie Lang MD Consent: Consent obtained: Emergent situation Alternatives discussed: No treatment and delayed treatment Furlong protocol: Patient identity confirmed: Hospital-assigned identification number [...] Procedure completion: Tolerated well, no immediate complications Kerrie Lang MD PROCEDURE/MINOR SURGICAL ORDERAB LES Final Result * VAS Venous Duplex Upper Left (04/21/2025 [...] Terrazas RN, on04/21/2025 at 5:03 pm. Marah Moon CNP CV VASCULAR ORDERABLES Final Result * Hox - HLA Crossmatch Report (04/21/2025 2:18 PM EDT) Only the most recent of3 resultswithin the time period is included. 04/21/2025 2:18 PM EDT Quan Yates III, MD LAB BLOOD ORDERABLE S Final Result [facility] [address] [place] [address] * Sodium, urine, random (04/21/2025 12:31 PM EDT) Sodium, Ur 77 mmol/L 04/21/2025 1:50 PM EDT [facility] Comment:Reference range not established for this test. Urine 04/21/2025 12:3 1 PM EDT 04/21/2025 12:50 PM EDT [employer] IT URINE ORDERABLES Final Result Performing Organization Address [facility] Co de Phone Number [facility] [address] [facility] * Protein, Total urine, random (04/21/2025 12:31 PM EDT) Total Protein, Ur 29 mg/dL 04/21/2025 1:50 PM EDT [facility] Comment:Reference range not established for this test. Urine 04/21/2025 12:3 1 PM EDT 04/21/2025 12:50 PM EDT [employer] IT URINE ORDERABLES Final Result Performing Organization Address [facility] Co de Phone Number [facility] [address] [place] [address] * Osmolality, urine (04/21/2025 12:31 PM EDT) Osmolality, Ur 518 50 - 1,200 mOsm/kg 04/21/2025 2:35 PM EDT [facility] Urine 04/21/2025 12:3 1 PM EDT 04/21/2025 12:50 PM EDT [employer] IT URINE ORDERABLES Final Result Performing Organization Address City/[facility]/ZIP Co de Phone Number [facility] [address] [facility] * Creatinine, urine, random (04/21/2025 12:31 PM EDT) Creatinine, Urine 45.10 mg/dL 04/21/2025 1:50 PM EDT [facility] Comment:Reference range not established for this test. Urine 04/21/2025 12:3 1 PM EDT 04/21/2025 12:50 PM EDT Marah Moon CNP URINE ORDERABLES Final Result [facility] [address] * Insert PICC line (04/21/2025 8:37 AM EDT) Chava Quezada RN - 04/21/2025 8:37 AM EDT Chava Govea RN 04/21/2025 8:38 AM Insert PICC line Date/Time: 04/21/2025 8:37 AM Performed by: Chava Govea RN Authorized by: Jarrod Goode MD Furlong Protocol: Verbal consent obtained?: Yes Written consent [...] time out verifies correct patient, procedure, equipment, retail support associate and site/side marked as required: Preparation: Preparation: [...] Guidewire removed post PICC placement: Yes us Jarrod Goode MD IV THERAPY ORDERABLES Final Resu lt * Coccidioides Antibody Reflexive Panel (04/19/2025 12:41 PM EDT) Coccidioides IgM 0.7 <=0.9 IV 04/23/20 7:41 PM EDT [facility] Comment: INTERPRETIVE INFORMATION: Coccidioides Antibody, IgM: [...] 0.2 <=0.9 IV 04/23/20 7:41 PM EDT [facility] Comment: INTERPRETIVE INFORMATION: Coccidioides Antibody, Ig.9 [...] represented in the [facility] tests. Effective March [id number] Coccidioides Ab, IgG by [facility] will be made non-orderable. [employer] offers order code [id number] Coccidioides Abs, IgG/IgM, EIA. For further information, please contact your local [facility] [employer]. Serum 04/19/2025 12:4 1 PM EDT 04/23/2025 8:07 PM EDT Narrative [facility] - 04/23/2025 8:07 PM EDT PERFORMED AT: [employer] [place] [id number] PLASTIC DUPLICATOR: [facility] PHONE: [phone] us Shannan Kumar PharmD LAB BLOOD ORDERABLES Final Result [facility] [address] * (ABNORMAL) High Sensitivity Troponin (04/19/2025 2:27 AM EDT) [facility] High Sensitivity Troponin 15(H) 0 - 14 ng/L 04/19/2025 3:04 AM EDT [facility] Serum 04/19/2025 2:27 AM EDT 04/19/2025 2:41 AM EDT us Mohan Khan MD LAB BLOOD ORDERABLES Final Result Performing Organization Address [facility] Co de Phone Number [facility] [address] * (ABNORMAL) TEG-Standard Global Hemostasis (Rapid TEG with Heparin Effect, Contains a Baseline TEG) (04/18/2025 6:59 PM EDT) Only the most recent of2 resultswithin the time period is included. [facility] Citrated Kaolin Reaction Time (TEGHEPARINASE) 5.0 4.6 - 9.1 minutes 04/18/2025 8:06 PM EDT [facility] Citrated Rapid Teg Maximum Amplitude (TEGHEPARINASE) 52.6 52.0 - 70.0 mm 04/18/2025 8:06 PM EDT [facility] Citrated Functional Fibrinogen Maximum Amplitude (TEGHEPARINASE) 15.3 15.0 - 32.0 mm 04/18/2025 8:06 PM EDT [facility] Citrated Kaolin W/Heparinase Reaction Time (TEGHEPARINASE) 5.1 4.3 - 8.3 minutes 04/18/2025 8:06 PM EDT [facility] Citrated Kaolin K-Time (TEGHEPARINASE) 1.7(A) 0.8 - 2.1 minutes 04/18/2025 8:06 PM EDT [facility] [employer]rated Kaolin Angle (TEGHEPARINASE) 71.3(A) 63.0 - 78.0 degrees 04/18/2025 8:06 PM EDT [facility] Citrated Kaolin Maximum Amplitude (TEGHEPARINASE) 54.5 52.0 - 69.0 mm 04/18/2025 8:06 PM EDT [facility] Citrated Functional Fibrinogen- Fibrinogen Level (TEGHEPARINASE) 279.2 278.0 - 581.0 mg/dL 04/18/2025 8:06 PM EDT [facility] Whole Blood (Citrate) 04/18/2025 6:59 PM EDT 04/18/2025 7:03 PM EDT Maura Hess MD LAB BLOOD ORDERABLES Final Result Performing Organization Address City/[facility] Co de Phone Number [facility] [address] * Fibrinogen (04/18/2025 6:59 PM EDT) Only the most recent of3 resultswithin the time period is included. Pathologist [facility] Fibrinogen 249 218 - 406 mg/dL 04/18/2025 7:14 PM EDT [facility] Plasma 04/18/2025 6:59 PM EDT 04/18/2025 7:03 PM EDT Maura Hess MD LAB BLOOD ORDERABLES Final Result Performing Organization Address City/[facility] Co de Phone Number [facility] [address] * (ABNORMAL) POC Lactate (04/18/2025 5:00 PM EDT) Only the most recent of11 resultswithin the time period is included. POC Lactate 3.63(H) 0.50 - 2.20 mmol/L 04/18/2025 5:34 PM EDT [facility] Blood, Arterial 04/18/2025 5 :00 PM EDT 04/18/2025 5:34 PM EDT us Jarrod Goode MD POINT OF CARE TEST ORDERABLES Fi nal Result Performing Organization Address [facility] Co de Phone Number [facility] [address] [place] [address]. [address] * POC TCO2 (04/18/2025 5:00 PM EDT) Only the most recent of11 resultswithin the time period is included. POC TCO2, Arterial 24 23 - 27 mmol/L 04/18/2025 5:34 PM EDT [facility] Blood, Arterial 04/18/2025 5 :00 PM EDT 04/18/2025 5:34 PM EDT us Jarrod Goode MD POINT OF CARE TEST ORDERABLES Fi nal Result Performing Organization Address [facility] de Phone Number [facility] [address] [place] [address]. [address] * POC Sodium (04/18/2025 5:00 PM EDT) Only the most recent of11 resultswithin the time period is included. POC Sodium 140 136 - 146 mmol/L 04/18/2025 5:34 PM EDT [facility] Blood, Arterial 04/18/2025 5 :00 PM EDT 04/18/2025 5:34 PM EDT us Jarrod Goode MD POINT OF CARE TEST ORDERABLES Fi nal Result Performing Organization Address City/[facility] Co de Phone Number [facility] [address] [facility] * POC Potassium (04/18/2025 5:00 PM EDT) Only the most recent of11 resultswithin the time period is included. POC Potassium 3.5 3.5 - 5.3 mmol/L 04/18/2025 5:34 PM EDT [facility] Blood, Arterial 04/18/2025 5 :00 PM EDT 04/18/2025 5:34 PM EDT us Jarrod Goode MD POINT OF CARE TEST ORDERABLES Fi nal Result Performing Organization Address [facility] Co de Phone Number [facility] [address] [facility] * (ABNORMAL) POC PO2 (04/18/2025 5:00 PM EDT) Only the most recent of11 resultswithin the time period is included. POC pO2, Arterial 178(H) 80 - 100 mm Hg 04/18/2025 5:34 PM EDT [facility] Blood, Arterial 04/18/2025 5 :00 PM EDT 04/18/2025 5:34 PM EDT us Jarrod Goode MD POINT OF CARE TEST ORDERABLES Fi nal Result Performing Organization Address [facility] de Phone Number [facility] [address] [facility] * POC PCO2 (04/18/2025 5:00 PM EDT) Only the most recent of11 resultswithin the time period is included. POC pCO2, Arterial 38 35 - 45 mm Hg 04/18/2025 5:34 PM EDT [facility] Blood, Arterial 04/18/2025 5 :00 PM EDT 04/18/2025 5:34 PM EDT us Jarrod Goode MD POINT OF CARE TEST ORDERABLES Fi nal Result Performing Organization Address [facility] Co de Phone Number [facility] [address] [facility] * (ABNORMAL) POC O2 SAT (04/18/2025 5:00 PM EDT) Only the most recent of11 resultswithin the time period is included. POC O2 Saturation, Arterial 100(H) 95 - 98 % 04/18/2025 5:34 PM EDT [facility] Blood, Arterial 04/18/2025 5 :00 PM EDT 04/18/2025 5:34 PM EDT us Jarrod Goode MD POINT OF CARE TEST ORDERABLES Fi nal Result Performing Organization Address City/[facility] Co de Phone Number [facility] [address] [place] [address]. [address] * POC HCO3 (04/18/2025 5:00 PM EDT) Only the most recent of11 resultswithin the time period is included. POC HCO3, Arterial 22 22 - 26 mmol/L 04/18/2025 5:34 PM EDT [facility] Blood, Arterial 04/18/2025 5 :00 PM EDT 04/18/2025 5:34 PM EDT us Jarrod Goode MD POINT OF CARE TEST ORDERABLES Fi nal Result Performing Organization Address [facility] Co de Phone Number [facility] [address] [facility] * POC Chloride (04/18/2025 5:00 PM EDT) Only the most recent of11 resultswithin the time period is included. Pathologist [facility] POC Chloride 109 98 - 110 mmol/L 04/18/2025 5:34 PM EDT [facility] Blood, Arterial 04/18/2025 5 :00 PM EDT 04/18/2025 5:34 PM EDT us Jarrod Goode MD POINT OF CARE TEST ORDERABLES Fi nal Result Performing Organization Address [facility] Co de Phone Number [facility] [address] [facility] * (ABNORMAL) POC Base Excess (04/18/2025 5:00 PM EDT) Only the most recent of11 resultswithin the time period is included. POC Base Excess, Arterial -3(L) -2 - 3 mmol/L 04/18/2025 5:34 PM EDT [facility] Blood, Arterial 04/18/2025 5 :00 PM EDT 04/18/2025 5:34 PM EDT us Jarrod Goode MD POINT OF CARE TEST ORDERABLES Fi nal Result Performing Organization Address City/[facility] Co de Phone Number [facility] [address] [place] [address]. [address] * POC Anion Gap (04/18/2025 5:00 PM EDT) Only the most recent of11 resultswithin the time period is included. POC Anion Gap, Arterial 9 3 - 16 mmol/L 04/18/2025 5:34 PM EDT [facility] Blood, Arterial 04/18/2025 5 :00 PM EDT 04/18/2025 5:34 PM EDT us Jarrod Goode MD POINT OF CARE TEST ORDERABLES Fi nal Result Performing Organization Address [facility] Co de Phone Number [facility] [address] [facility] * POC Sample Type (04/18/2025 5:00 PM EDT) Only the most recent of11 resultswithin the time period is included. POC Sample Type Arterial 04/18/2025 5:34 PM EDT [facility] Blood, Arterial 04/18/2025 5 :00 PM EDT 04/18/2025 5:34 PM EDT us Jarrod Goode MD POINT OF CARE TEST ORDERABLES Fi nal Result Performing Organization Address City/[facility] Co de Phone Number [facility] [address] [place] [address]. [address] * POC pH (04/18/2025 5:00 PM EDT) Only the most recent of11 resultswithin the time period is included. POC pH, Arterial 7.38 7.35 - 7.45 04/18/2025 5:34 PM EDT [facility] Blood, Arterial 04/18/2025 5 :00 PM EDT 04/18/2025 5:34 PM EDT us Jarrod Goode MD POINT OF CARE TEST ORDERABLES Fi nal Result Performing Organization Address City/[facility]/ZIP Co de Phone Number [facility] [address] [facility] * (ABNORMAL) POC hematocrit (04/18/2025 5:00 PM EDT) Only the most recent of11 resultswithin the time period is included. POC Hematocrit 28.0(L) 35 - 45 % 04/18/2025 5:34 PM EDT [facility] Blood, Arterial 04/18/2025 5 :00 PM EDT 04/18/2025 5:34 PM EDT us Jarrod Goode MD POINT OF CARE TEST ORDERABLES Fi nal Result Performing Organization Address [facility]' [facility] Co de Phone Number [facility] [address] [facility] * POC Ionized Calcium (04/18/2025 5:00 PM EDT) Only the most recent of11 resultswithin the time period is included. POC Ionized Calcium 5.00 4.50 - 5.30 mg/dL 04/18/2025 5:34 PM EDT [facility] Blood, Arterial 04/18/2025 5 :00 PM EDT 04/18/2025 5:34 PM EDT us Jarrod Goode MD POINT OF CARE TEST ORDERABLES Fi nal Result Performing Organization Address City/[facility] Co de Phone Number [facility] [address] [facility] * (ABNORMAL) POC Glucose (04/18/2025 5:00 PM EDT) Only the most recent of11 resultswithin the time period is included. POC Glucose, Arterial 136(H) 70 - 100 mg/dL 04/18/2025 5:34 PM EDT [facility] Blood, Arterial 04/18/2025 5 :00 PM EDT 04/18/2025 5:34 PM EDT us Jarrod Goode MD POINT OF CARE TEST ORDERABLES Fi nal Result Performing Organization Address [facility] Co de Phone Number [facility] [address] [place] [address] * (ABNORMAL) POC Hemoglobin (04/18/2025 5:00 PM EDT) Only the most recent of11 resultswithin the time period is included. Pathologist [facility] POC Hemoglobin 9.6(L) 12.0 - 16.0 g/dL 04/18/2025 5:34 PM EDT [facility] Blood, Arterial 04/18/2025 5 :00 PM EDT 04/18/2025 5:34 PM EDT us Jarrod Goode MD POINT OF CARE TEST ORDERABLES Fi nal Result Performing Organization Address [facility] de Phone Number [address] * (ABNORMAL) POC INR (04/18/2025 4:54 PM EDT) Only the most recent of10 resultswithin the time period is included. Pathologist [facility] Prothrombin Time INR, POC 1.6(H) 0.8 - 1.4 04/19/2025 6:33 AM EDT [facility] Comment: Test results may vary using different testing platforms. Serial result monitoring should be performed using the same methodology. RECOMMENDED THERAPEUTIC RANGES USING INR : Stable oral anticoagulant therapy: 2.0 - 3.0 Mechanical prosthetic heart valve: 2.5 - 3.5 Recurrent acute myocardial infarction: 2.5 - 3.5 Blood 04/18/2025 4:54 PM EDT 04/19/2025 6:32 AM EDT us Jarrod Goode MD POINT OF CARE TEST ORDERABLES Fi nal Result [facility] [address] [place] [address], [facility] * Transfuse Cryoprecipitate (04/18/2025 4:07 PM EDT) Only the most recent of2 resultswithin the time period is included. Result [facility] us Mario Chan MD NURSING TREATMENT ORDERABL ES - BLOOD ADMIN Final Result * Transfuse Fresh Frozen Plasma Transfusion Rate: Per dept routine (04/18/2025 2:40 PM EDT) Only the most recent of4 resultswithin the time period is included. Result [facility] us Jarrod Goode MD NURSING TREATMENT ORDERABLES - B LOOD ADMIN Final Result * Transfuse Platelets (04/18/2025 2:37 PM EDT) Only the most recent of2 resultswithin the time period is included. Result [facility] Mario Chan MD NURSING TREATMENT ORDERABL ES - BLOOD ADMIN Final Result * CENTRAL LINE SINGLE LUMEN PERFORMABLE, HC ANESTHESIA DUAL LUMEN INTRODUCER (MAC) CENTRAL [...] PROCEDURE/MINOR SURGICAL O RDERABLES Final Result * CENTRAL LINE SINGLE LUMEN PERFORMABLE, HC ANESTHESIA PULMONARY ARTERY CATHETER (04/18/2025 8:30 AM EDT) Narrative Mario Chan MD - 04/18/2025 8:30 AM EDT Mario Chan MD 04/18/2025 2:03 PM [place] [facility] Cath Date/Time: 04/18/2025 8:30 AM Performed [...] team post op PA catheter complications: None Mario Chan MD IV THERAPY ORDERABLES Rosa l Result * POC HCG Qualitative, Urine (04/18/2025 6:16 AM EDT) Pathologist [facility] hCG Qualitative -Clinitek Negative Negative 04/18/2025 6:22 AM EDT [facility] Urine 04/18/2025 6:16 AM EDT 04/18/2025 6:22 AM EDT Jarrod Goode MD URINE ORDERABLES Final Result [facility] [address] * (ABNORMAL) Venous Blood Gas, Line/Syringe (04/18/2025 6:03 AM EDT) Pathologist [facility] PH-Line Draw 7.42 7.32 - 7.42 04/18/2025 6:40 AM EDT [facility] PCO2-Line Draw 39(L) 41 - 51 mm Hg 04/18/2025 6:40 AM EDT [facility] PO2-Line Draw 37 25 - 40 mm Hg 04/18/2025 6:40 AM EDT [facility] HCO3-Line Draw 25 24 - 28 mmol/L 04/18/2025 6:40 AM EDT [facility] CO2 Content-Line Draw 27 25 - 29 mmol/L 04/18/2025 6:40 AM EDT [facility] Base Excess-Line Draw 0.8 -2.0 - 3.0 mmol/L 04/18/2025 6:40 AM EDT [facility] %HBO2-Line Draw 61.4 40.0 - 70.0 % 04/18/2025 6:40 AM EDT [facility] Carboxyhgb-Kaur e Draw 1.1 % 04/18/2025 6:40 AM EDT [facility] Comment: CARBOXYHEMOGLOBIN (CO) REFERENCE RANGES: Non-Smokers: <2 % Smokers: <8 % TOXIC: >20 % Methemoglobin- Line Draw 0.8 0.0 - 1.5 % 04/18/2025 6:40 AM EDT [facility] Reduced Hemoglobin-Kaur e Draw 36.8(H) 0.0 - 5.0 % 04/18/2025 6:40 AM EDT [facility] Venous, Line Draw 04/18/2025 6:03 AM EDT 04/18/2025 6:36 AM EDT Narrative [facility] - 04/18/2025 6:40 AM EDT Specimen is beyond 15 minutes from time of collection. Results may be compromised. Review results critically. us Jarrod Goode MD LAB BLOOD ORDERABLES Final Resul t [facility] [address] [place] [address], [facility] * Hepatitis C RNA, Quant Reflex to Genotyp (04/18/2025 6:03 AM EDT) International Units Not Detected IU/mL 04/21/2025 11:40 AM EDT [facility] Comment:Test methodology for HCV RNA quantification is an FDA-approved nucleic acid amplification assay. The Lower Limit of Quantitation (LLOQ) is 15 IU/mL. The linear range of the assay is 15-100,000,000 IU/mL. The Limit of Detection (LoD) is 12.0 IU/mL for EDTA plasma. The reference range is Not Detected. IU log10 See Note log 10 IU/mL 04/21/2025 11:40 AM EDT [facility] Comment:HCV RNA not detected . Plasma 04/18/2025 6:03 AM EDT 04/18/2025 7:58 AM EDT us Jarrod Goode MD LAB BLOOD ORDERABLES Final Resul t Performing Organization Address [facility] de Phone Number [address] * Hepatitis B Core Antibody (04/18/2025 6:03 AM EDT) Only the most recent of2 resultswithin the time period is included. Hep B Core Total Ab Nonreactive Nonreactive 04/18/2025 8:33 AM EDT [facility] Comment:Health Department no tified in accordance with reportable infectious disease guidelines. Serum 04/18/2025 6:03 AM EDT 04/18/2025 6:45 AM EDT Narrative [facility] - 04/18/2025 8:33 AM EDT A nonreactive final interpretation indicates that anti-HBc antibodies were not detected in the sample; it is possible that the individual is not infected with HBV. us Jarrod Goode MD LAB BLOOD ORDERABLES Final Resul t Performing Organization Address [facility] de Phone Number [facility] [address] [place] [address] * (ABNORMAL) Hepatitis C Antibody (04/18/2025 6:03 AM EDT) Only the most recent of2 resultswithin the time period is included. HCV Ab Reactive( A) Nonreactive 04/18/2025 8:42 AM EDT [facility] Comment: Health Department notified in accordance with reportable infectious disease guidelines. Health Department notified in accordance with reportable infectious disease guidelines. Serum 04/18/2025 6:03 AM EDT 04/18/2025 6:45 AM EDT [facility] - 04/18/2025 8:42 AM EDT Presumptive evidence of antibodies to HCV: follow CDC recommendations for supplemental testing. us Jarrod Goode MD LAB BLOOD ORDERABLES Final Resul t Performing Organization Address [facility] de Phone Number [facility] [address] [place] [address]. [address] * HIV 1+2 Antibody/Antigen with Reflex (04/18/2025 6:03 AM EDT) Only the most recent of2 resultswithin the time period is included. HIV 1+2 AB/AGN Nonreactive Nonreactive 04/18/2025 8:32 AM EDT [facility] Serum 04/18/2025 6:03 AM EDT 04/18/2025 6:45 AM EDT [facility] - 04/18/2025 8:32 AM EDT \HIVRNR us Jarrod Goode MD LAB BLOOD ORDERABLES Final Resul t Performing Organization Address [facility] de Phone Number [facility] [address] [place] [address]. [address] * Hepatitis B Surface Antibody, Quantitati (04/18/2025 6:03 AM EDT) Only the most recent of2 resultswithin the time period is included. HBSAB NUMBER 5.17 0.00 - 9.99 mIU/mL 04/18/2025 8:46 AM EDT [facility] Hep B S Ab Nonreactive Nonreactive 04/18/2025 8:46 AM EDT [facility] Serum 04/18/2025 6:03 AM EDT 04/18/2025 6:45 AM EDT [facility] - 04/18/2025 8:46 AM EDT Individual is considered not immune to HBV infection. us Jarrod Goode MD LAB BLOOD ORDERABLES Final Resul t Performing Organization Address [facility] Co de Phone Number [facility] [address] [facility] * Hepatitis B surface antigen (04/18/2025 6:03 AM EDT) Only the most recent of2 resultswithin the time period is included. Hep B Surface Ag Nonreactive Nonreactive 04/18/2025 8:37 AM EDT [facility] Comment:Health Department no tified in accordance with reportable infectious disease guidelines. Serum 04/18/2025 6:03 AM EDT 04/18/2025 6:45 AM EDT Narrative [facility] - 04/18/2025 8:37 AM EDT Specimen is considered negative for HBsAg. us Jarrod Goode MD LAB BLOOD ORDERABLES Final Resul t Performing Organization Address [facility] Co de Phone Number [facility] [address] [facility] * APTT, No Anticoagulant (04/18/2025 6:03 AM EDT) Only the most recent of2 resultswithin the time period is included. aPTT 28.7 25.5 - 35.0 seconds 04/18/2025 7:08 AM EDT [facility] Plasma 04/18/2025 6:03 AM EDT 04/18/2025 6:45 AM EDT us Jarrod Goode MD LAB BLOOD ORDERABLES Final Resul t Performing Organization Address [facility] Co de Phone Number [facility] [address] [facility] * hCG, quantitative, (04/18/2025 6:03 AM EDT) Only the most recent of2 resultswithin the time period is included. hCG Quant 0.00 mIU/mL 04/18/2025 8:51 AM EDT [facility] Comment: Approximate Approximate Gestational Age hCG Range (Weeks) mIU/mL 0.2-1 5-50 1-2 50-500 2-3 100-5000 3-4 500-41817 4-5 1000-74580 5-6 [id number] 6-8 [id number] 8-12 [id number] This assay is not approved for, and should not be used to diagnose any condition unrelated to . A Negative hCG result is <5.0 mIU/mL. Plasma 04/18/2025 6:03 AM EDT 04/18/2025 6:45 AM EDT Narrative [facility] - 04/18/2025 8:51 AM EDT The testing method for beta-HCG is a chemiluminescent immunoassay manufactured by [employer] Concentrations of beta-HCG obtained by different assay methods or kits may vary and cannot be used interchangeably. Beta-HCG results cannot be interpreted as absolute evidence of the presence or absence of malignant disease. Jarrod Goode MD LAB BLOOD ORDERABLES Final Resul t [facility] [address] [place] [address], [facility] * Surgical Pathology Exam (04/18/2025 12:00 AM EDT) 04/18/2025 04/19/2025 Narrative [facility] - 04/18/2025 12:00 AM EDT CASE: [id number] PATIENT: MINDY WADE Clinical History: Living donor liver transplant Pre-Operative Diagnosis: Pre-transplant evaluation for chronic liver disease Post-Operative Diagnosis: Pre-transplant evaluation for chronic liver disease Specimen(s) Submitted: A. big sandy gallbladder ; B. common bile duct ; C. [place] liver CPT Code(s): 42152 X 1; 21603 X 1; 72836 X 1; 24163 X 5; 04729 X 1 Additional Information: FINAL DIAGNOSIS: A. Gallbladder, big sandy, resection: - No significant pathologic change. - Negative for dysplasia or malignancy. B. Common bile duct, excision: - Biliary epithelium with mild reactive change. - Negative for malignancy. C. 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 - Negative for neoplasm. Dave Wilkinson MD (Resident) Gross Description: A. Received in formalin, labeled with the patient's name Mindy Wade and A. [place] gallbladder is a 12.0 x 4.5 x [...] of the gallbladder is eisenberg-yellow and velvety. Marine Mamm[employer] sections are submitted in cassettes [id number]. (Dave Wilkinson MD (Resident)/ab) B. Received in formalin, labeled with the patient's name Mauro Mindy and B. Common bile duct is a piece of eisenberg-white fibrous luminal structure that measures 1.5 cm in length x 0.6 cm in diameter and attached cauterized soft tissue. The specimen is trisected longitudinally and entirely submitted in cassette [id number]. (Dave Wilkinson MD (Resident)/ab) C. Received in formalin, labeled with the patient's name Mauro Mindy and C. [place] liver is a 1274-gram, 18.5 x 16.0 [...] x 1.0 cm and appears grossly well-circumscribed. Marine M[employer] sections are submitted in cassettes [id number] as follows: C1: Hilar margin. C2-C4: Marine Mammal Trainer section of the right lobe. C5-C8: Marine Mammal Trainer section of the left lobe, with C5 containing food service representative section of the well-circumscribed and subcapsular [...] Pathologist signing this report is located at [facility], [address] [place] [address], [facility], , CLIA ID: [id number] us Jarrod Goode MD PATHOLOGY/CYTOLOGY ORDERABLES Fi nal Result Performing Organization Address [facility] Co de Phone Number [facility] * [facility] - ABO Typing Report (04/15/2025 11:48 AM EDT) 04/15/2025 11:4 8 AM EDT us Quan Yates III, MD LAB BLOOD ORDERABLE S Final Result Performing Organization Address City/[facility] Co de Phone Number [facility] [address] [place] [address] * Syphilis Screening (Trepia) (04/11/2025 2:53 PM EDT) Treponema Pallidum Negative Negative 04/11/2025 6:37 PM EDT [facility] Comment: No serological evidence of infection with Treponema pallidum (incubating or early primary syphilis cannot be excluded). Serum 04/11/2025 2:53 PM EDT 04/11/2025 3:53 PM EDT us Jarrod Goode MD LAB BLOOD ORDERABLES Final Resul t Performing Organization Address [facility] Co de Phone Number [facility] [address] [facility] * CMV IgM Antibody (04/11/2025 2:53 PM EDT) CMV IgM Negative Negative 04/11/2025 6:43 PM EDT [facility] Comment:Result indicates abs ence of CMV [...] - 29.99 AU/mL 04/11/2025 6:43 PM EDT [facility] Serum 04/11/2025 2:53 PM EDT 04/11/2025 3:53 PM EDT us Jarrod Goode MD LAB BLOOD ORDERABLES Final Resul t Performing Organization Address [facility] Co de Phone Number [facility] [address] [facility] * (ABNORMAL) CMV IgG Antibody (04/11/2025 2:53 PM EDT) CMV IgG Positive(A ) Negative 04/11/2025 6:33 PM EDT [facility] CMV IGG NUM >10.00(H) 0.00 - 0.59 U/mL 04/11/2025 6:33 PM EDT [facility] Serum 04/11/2025 2:53 PM EDT 04/11/2025 3:53 PM EDT us Jarrod Goode MD LAB BLOOD ORDERABLES Final Resul t Performing Organization Address City/[facility] Co de Phone Number [facility] [address] * EBV Antibody IgM (04/11/2025 2:53 PM EDT) [facility] EBV VCA IgM Negative Negative 04/11/2025 6:33 PM EDT [facility] Comment:Absence of detectabl e VCA IgM antibodies. If exposure to Vanessa-Jackson virus is suspected despite a negative finding, a second sample should be collected and tested no less than one to two weeks later. EBV IGM NUM <10.00 0.00 - 35.99 U/mL 04/11/2025 6:33 PM EDT [facility] Serum 04/11/2025 2:53 PM EDT 04/11/2025 3:53 PM EDT us Jarrod Goode MD LAB BLOOD ORDERABLES Final Resul t Performing Organization Address [facility] de Phone Number [facility] [address] [place] [address]. [address] * (ABNORMAL) Vanessa-Jackson Virus VCA IgG Ab (04/11/2025 2:53 PM EDT) [facility] EBV VCA IgG Positive( A) Negative 04/11/2025 6:34 PM EDT [facility] Comment:Presence of detectab le VCA IgG antibodies. A positive result indicates current or past exposure to Vanessa-Jackson virus. EBV IGG NUM >750.00(H ) 0.00 - 17.99 U/mL 04/11/2025 6:34 PM EDT [facility] Serum 04/11/2025 2:53 PM EDT 04/11/2025 3:53 PM EDT us Jarrod Gooed MD LAB BLOOD ORDERABLES Final Resul t Performing Organization Address [facility] Co de Phone Number [facility] [address] * (ABNORMAL) Vitamin D 25 hydroxy (04/11/2025 2:53 PM EDT) Vit D, 25-Hydroxy 27.1(L) 30.0 - 100.0 ng/mL 04/11/2025 6:43 PM EDT [facility] Comment: Vitamin D deficiency has been defined by the [place] [employer] (IOM) and an Endocrine Society [...] clinical practice guideline. JCEM. 2010; 96(7):1911-30. Serum 04/11/2025 2:53 PM EDT 04/11/2025 3:53 PM EDT Jarrod Goode MD LAB BLOOD ORDERABLES Final Resul t [facility] [address] * Hemoglobin A1c (04/11/2025 2:53 PM EDT) Hemoglobin A1C 4.4 4.0 - 5.6 % 04/11/2025 11:24 PM EDT [facility] Comment: Hemoglobin A1c Interpretation Guidelines: Normal: [...] other individual patient considerations. Whole Blood 04/11/2025 2:5 3 PM EDT 04/11/2025 3:53 PM EDT us Jarrod Goode MD LAB BLOOD ORDERABLES Final Resul t [facility] [address] [place] [id number], [facility] * (ABNORMAL) Comprehensive metabolic panel (04/11/2025 2:35 PM EDT) Sodium 139 133 - 146 mmol/L 04/11/2025 5:55 PM EDT [facility] Potassium 3.8 3.5 - 5.3 mmol/L 04/11/2025 5:55 PM EDT [facility] Chloride 109 98 - 110 mmol/L 04/11/2025 5:55 PM EDT [facility] CO2 25 21 - 33 mmol/L 04/11/2025 5:55 PM EDT [facility] Comment:High lactate dehydro genase concentrations in patient samples may cause falsely increased bicarbonate results. If markedly elevated LDH is observed or suspected, please assess results in conjunction with patient`s clinical presentation. In cases of discrepant results, consider evaluating CO2 in with a blood gas order. Anion Gap 5 3 - 16 mmol/L 04/11/2025 5:55 PM EDT [facility] BUN 9 7 - 25 mg/dL 04/11/2025 5:55 PM EDT [facility] Creatinine 0.55(L) 0.60 - 1.30 mg/dL 04/11/2025 5:55 PM EDT [facility] Glucose 84 70 - 100 mg/dL 04/11/2025 5:55 PM EDT [facility] Calcium 8.7 8.6 - 10.3 mg/dL 04/11/2025 5:55 PM EDT [facility] Total Bilirubin 1.4 0.0 - 1.5 mg/dL 04/11/2025 5:55 PM EDT [facility] AST 42(H) 13 - 39 U/L 04/11/2025 5:55 PM EDT [facility] ALT 27 7 - 52 U/L 04/11/2025 5:55 PM EDT [facility] Alkaline Phosphatase 116 36 - 125 U/L 04/11/2025 5:55 PM EDT [facility] Total Protein 6.5 6.4 - 8.9 g/dL 04/11/2025 5:55 PM EDT [facility] Albumin 3.7 3.5 - 5.7 g/dL 04/11/2025 5:55 PM EDT [facility] Osmolality, Calculated 286 278 - 305 mOsm/kg 04/11/2025 5:55 PM EDT [facility] EGFR >90 04/11/2025 5:55 PM EDT [facility] Comment: As of 2021, the estimated [...] 2:35 PM EDT 04/11/2025 3:53 PM EDT [facility] LAB BLOOD ORDERABLES Final Result [facility] [address] [place], [place] [address] * DXA bone density axial skeleton (04/11/2025 [...] mineral density analysis was performed on a [employer] scanner. ARTIFACTS: None COMPARISON: No prior studies [...] mineral density analysis was performed on a [employer] iDXAscanner. ARTIFACTS: None COMPARISON: No prior studies [...] MD IMG DEXA ORDERABLES Final Res ult * CT Chest WO contrast (03/16/2025 3:23 PM EDT) Anatomical Region Laterality Modality Chest Computed Tomogra phy 03/16/2025 3:12 PM EDT Impressions 03/16/2025 3:54 PM EDT IMPRESSION: No focal infiltrates/consolidations. Once again seen, upper lobe predominant, small noncalcified and groundglass lung nodular foci, can be seen in smoking-related respiratory bronchiolitis. No suspicious lung nodule/mass. Cirrhotic morphology of the liver, splenomegaly. Sequela of healed granulomatous disease. Report Verified by: Catarino Mayfield MD at 03/16/2025 3:54 PM EDT Narrative 03/16/2025 3:54 PM EDT EXAM: CT CHEST WO CONTRAST INDICATION: OLT Eval. positive TB screening blood lab. On treatment.; Alcoholic cirrhosis of liver with ascites (CMS-HCC); Pre-transplant evaluation for chronic liver disease COMPARISON: 02/01/2025. TECHNIQUE: Multidetector CT imaging was obtained through the chest in the supine position without intravenous contrast. Additional axial MIP images were reconstructed. CAD software was utilized. FINDINGS: MEDICAL DEVICES: None. AIRWAYS & LUNGS: The central airways are patent. No focal consolidation. No suspicious lung nodule/mass. Punctate calcified granuloma in the lung lane. Mild left apical scarring noted. NODULES: Stable, upper lobe predominant, sub-6 mm, noncalcified and groundglass lung nodular foci. Example = 3 mm right upper lobe nodule in the axial image 51, series 4 is unchanged. No new/ suspicious lung nodule/mass. PLEURA: No pleural effusions or pneumothorax. LOWER NECK: Unremarkable. HEART: The heart is normal in size. VASCULAR STRUCTURES: Aorta and main pulmonary artery are normal in caliber. MEDIASTINUM AND LAKEISHA: No pathologically enlarged lymph nodes. Small thymic remnant noted. Small amount of fluid in the superior pericardial recesses. Small calcified lymph nodes in the left infrahilar region. Small hiatal hernia. CHEST WALL AND AXILLA: Unremarkable. UPPER ABDOMEN: Once again seen, splenomegaly. Cirrhotic morphology of the liver. OSSEOUS STRUCTURES: No suspicious osseous lesion or acute osseous abnormality. Procedure Note Catarino Mayfield MD - 03/16/2025 EXAM: CT CHEST WO CONTRAST INDICATION: OLT Eval. positive TB screening blood lab. On treatment.;Alcoholic cirrhosis of liver with ascites (CMS-HCC); Pre-transplantevaluation for chronic liver disease COMPARISON: 02/01/2025. TECHNIQUE: Multidetector CT imaging was obtained through the chest in thesupine position without intravenous contrast. Additional axial MIP imageswere reconstructed. CAD software was utilized. FINDINGS: MEDICAL DEVICES: None. AIRWAYS & LUNGS: The central airways are patent. No focal consolidation.No suspicious lung nodule/mass. Punctate calcified granuloma in the lungfields. Mild left apical scarring noted. NODULES: Stable, upper lobe predominant, sub-6 mm, noncalcified andgroundglass lung nodular foci. Example = 3 mm right upper lobe nodule inthe axial image 51, series 4 is unchanged. No new/ suspicious lungnodule/mass. PLEURA: No pleural effusions or pneumothorax. LOWER NECK: Unremarkable. HEART: The heart is normal in size. VASCULAR STRUCTURES: Aorta and main pulmonary artery are normal incaliber. MEDIASTINUM AND LAKEISHA: No pathologically enlarged lymph nodes. Small thymicremnant noted. Small amount of fluid in the superior pericardial recesses.Small calcified lymph nodes in the left infrahilar region. Small hiatalhernia. CHEST WALL AND AXILLA: Unremarkable. UPPER ABDOMEN: Once again seen, splenomegaly. Cirrhotic morphology of theliver. OSSEOUS STRUCTURES: No suspicious osseous lesion or acute osseousabnormality. IMPRESSION: No focal infiltrates/consolidations. Once again seen, upper lobe predominant, small noncalcified andgroundglass lung nodular foci, can be seen in smoking-related respiratorybronchiolitis. No suspicious lung nodule/mass. Cirrhotic morphology of the liver, splenomegaly. Sequela of healed granulomatous disease. Report Verified by: Catarino Mayfield MD at 03/16/2025 3:54 PM EDT Mario Ramirez MD IMG CT ORDERABLES Final Resul t from Last 3 Months [facility] [id number] [facility] MEDICARE Derrick Alan MARLYS SIVA [id number] [facility] MEDICARE [address] [place] [address] Advance Directives For more information, please contact: [phone] * Full Code (Latest Code Status on File) Date Activated Date Inactivated Comments 04/18/2025 6:43 PM 05/03/2025 8:28 PM Care Teams Office Support Clerk Relationship Specialty Start Date End Date Yonatan Graves DO [address] [place] [address] PCP - General 02/01/25 Farida Ortega, SONAR SUBSYSTEM EQUIPMENT OPERATOR [address] [place] [phone] Referring Physician Gastroenterology 09/02/23 Cat Benavides, RN Txp Post Coordinator Warp Knitting Machine Operator 05/02/25
--- OUTSIDE RECORDS SUMMARY | 2025-05-23 10:32 | XMS_ITS | Encounter Summary ---
Author Organization [facility] Address [address] [place] [address] Care Team Providers Care Notary Public Name Role Phone Yonatan Graves DO Primary Care Provider Farida Ortega ACTING MANAGER Unavailable [phone] Source Comments This information has been disclosed [...] release of HIV test results or diagnoses. [id number] Health Encounter Details Date Type Department Care Team (Late st Contact Info) Description 04/21/2025 Education Chart Note [facility] Liver Transplant at [address] [place] [phone] Pao Pennington, RN Social History Tobacco Use Types Packs/Day Years Used Date Smoking Tobacco: Former Cigarettes 0.3 1.2 0 07/22/2014 - 07/22/2015 Smokeless Tobacco: Never Alcohol Use Standard Drinks/Week Comments Not Currently 0 (1 standard drink = 0.6 oz pur e alcohol) [facility] Utilities Answer Date Recorded In the past 12 months has [employer], gas, oil, or water [employer] threatened to shut off services in your home? No 04/19/2025 AUDIT-C Answer Date Recorded Q1: How often do you have a drink containing alcohol? Never 04/22/2025 Q2: How many drinks containi ng alcohol do you have on a typical day when you are drinking? Patient does not drink 10/31/202 5 Q3: How often do you have [...] time in the past 12 m [facility], were you homeless or living in [...] Date of Assessment Author Gretchen lau Yes 04/21/2025 11:00 AM EDT Jc Terrazas RN Peripheral Vascular (WDL) X 04/21/2025 11:0 0 AM EDT Jc Terrazas RN * Question Answer Date of Assessment Author Anti-Embolism Devices Bilateral;Sequenti al compression devices, below knee 04/21/2025 8:00 AM EDT Yaima Cohen RN Anti-Embolism Intervention Declined 04/21/2025 8:00 AM EDT Yaima Cohen RN documented as of this encounter Progress Notes * Pao Pennington RN - 04/21/2025 2:41 PM EDT Education - Discharge: Post-Transplant Education and discharge planning discussed with patient and caregiver team including [place]. Primary support will be provided by [place]. The time spent educating was 70 minutes discussing the following topics, including but not limited to: 1. Immunosuppression Precautions [x] 2. Immunosuppression Medications - action, dose, route, side effects [x] 3. Anti-Infective medications - action, dose, route, side effects, length of therapy [x] 4. Signs and symptoms of Infection/Rejection [x] 5. When to call qualitative field coordinator [x] 6. Outpatient follow up including frequency of clinic visits and lab draws [x] 7. How to care for the transplant incision [x] 8. Completing the daily log including temperature, heart rate, blood pressure and blood glucose parameters [x] 9. Activity restrictions including sun exposure precautions, travel restrictions, pet safety, plants and gardening restrictions [x] 10. Importance of routine medical screenings and exams with other providers [x] 11. Understanding emotions follow transplant [x] 12. Importance of using the medication card and pill organizer to develop a system for medication administration. [x] 13. Enforced education on bring their medication card and daily log to each outpatient clinic visit. [x] [] Patient and caregiver(s) were attentive and receptive to learning, and asked appropriate questions.I encouraged all to review written materials and watch transplant education videos to reinforce theeducation provided today. Also provided written educational materials for reference, contact phone numbers and encouraged all to call with questions/concerns. The multidisciplinary transplant team and I will continue to assist this patient and caregiver team with discharge planning/education based on patient's medical condition. I will ensure the following and other items as necessary: 1. Appropriate and timely coordination of transplant care and education. 2. Collaborate with inpatient transplant team to ensure smooth transition to home or rehab facility. 3. If patient is discharged to rehab facility will arrange pharmacy education and pillbox packing in the outpatient setting prior to discharge home. 4. Arrange all outpatient transplant clinic follow up as appropriate. 5. Communicate progress of care coordination with the transplant team and notify of any challenges/obstacles that might delay discharge. Mindy Wade has a great social support with a great understanding of information provided. No barriers to discharge identified. Medication times 0900 and 2100, understands medication dosing in relation to lab work. Will have [facility] [phone] for labs and then to go to local [facility] for outpatient labs. Patient is interested in using their local [email or web address] for their Pharmacy. Familiar with pill box packing. Patient is NOT interested in the [place] infusion at this time. documented in this encounter Plan of Treatment Not on file documented as of this encounter Visit Diagnoses Not on filedocumented in this encounter Additional Health Concerns Assessment Noted Time PHQ-9 Depression Total Score: 13 11/04/ 025 2:00 PM EDT documented as of this encounter Care Teams Notary Public Relationship Specialty Start Date End Date Yonatan Graves DO [address] [place] [address] PCP - General 02/01/25 Farida Ortega, HARLEEN [address] [place] [address] Referring Physician Gastroenterology 09/02/23 documented as of this encounter
--- OUTSIDE RECORDS SUMMARY | 2025-05-23 10:35 | XMS_ITS | Encounter Summary ---
Author Organization [facility] Address [address] [place] [address] Care Team Providers Care Apn Name Role Phone Yonatan Graves Primary Care Provider Farida Ortega BUTTON RIVETER Unavailable [phone] Source Comments This information has been disclosed [...] release of HIV test results or diagnoses. [id number] Health Encounter Details Date Type Department Care Team (Late st Contact Info) Description 04/11/2025 Chart Note [facility] [place] [facility] Kidney Transplant at [address] [place] [phone] Niya Tripp Liver Transplant Scheduled Social History Tobacco Use Types Packs/Day Years [...] Progress Notes * Niya Tripp - 04/11/2025 4:49 PM EDT Liver Transplant Scheduled Date Scheduled: 04/18/2025 Primary Ins: [employer] Medicare Auth for Transplant: [id number] Auth for Admission: [id number] Days:04/18/2025-04/24/2025 Parts Sales Manager: [employer] Secondary Ins: N/A Donor: Gay Montemayor Donor documented in this encounter Plan of Treatment Not on file documented as of this encounter Visit Diagnoses Not on filedocumented in this encounter Additional Health Concerns Assessment Noted Time PHQ-9 Depression Total Score: 13 11/04/ 025 2:00 PM EDT documented as of this encounter Care Teams Apn Relationship Specialty Start Date End Date Yonatan Graves DO [address] [place] [address] PCP - General 02/01/25 Farida Ortega, BUTTON RIVETER [address] [place] [phone] Referring Physician Gastroenterology 09/02/23 documented as of this encounter
--- OUTSIDE RECORDS SUMMARY | 2025-05-23 10:35 | XMS_ITS | Encounter Summary ---
Author Organization [facility] Address [address] [place] [address] Care Team Providers Care Glove Boarder Name Role Phone Yonatan Graves DO Primary Care Provider Farida Ortega RELOCATION ASSOCIATE Unavailable [phone] Source Comments This information has been disclosed [...] release of HIV test results or diagnoses. [id number] Health Encounter Details Date Type Department Care Team (Late st Contact Info) Description 04/12/2025 Chart Note [facility] Liver Transplant at [address] [place] [phone] Lashawn Lira RN Organ added under [place] tab for OR usage during LDLT scheduled for Social History Tobacco Use Types Packs/Day [...] as of this encounter Progress Notes * Lashawn Lira RN - 04/12/2025 3:29 PM EDT Organ added under [place] tab for OR usage during LDLT scheduled for Wednesday 04/18. documented in this encounter Plan of Treatment Not on file documented as of this encounter Visit Diagnoses Not on filedocumented in this encounter Additional Health Concerns Assessment Noted Time PHQ-9 Depression Total Score: 13 11/04/ 025 2:00 PM EDT documented as of this encounter Care Teams Glove Boarder Relationship Specialty Start Date End Date Yonatan Graves DO [address] [place] [address] PCP - General 02/01/25 Farida Ortega, HARLEEN [address] [place] [address] Referring Physician Gastroenterology 09/02/23 documented as of this encounter
--- OUTSIDE RECORDS SUMMARY | 2025-05-23 10:35 | XMS_ITS | Encounter Summary ---
Author Organization [facility] Address [address] [place] [address] Care Team Providers Care Sky Line Yarder Name Role Phone Yonatan Graves Primary Care Provider Farida Ortega WATER QUALITY ASSISTANT Unavailable [phone] Source Comments This information has been disclosed [...] release of HIV test results or diagnoses. [id number] Health Encounter Details Date Type Department Care Team (Late st Contact Info) Description 04/12/2025 Telephone [facility] Liver Transplant at [address] [place] [phone] Lashawn Lira, RN Social History Tobacco Use Types Packs/Day [...] Notes * Lashawn Lira RN - 04/12/2025 3:34 PM EDT Blood bank, [facility], notified of upcoming LDLT on Wednesday 04/18. [facility] confirmed recipient information. documented in this encounter Plan of Treatment Not on file documented as of this encounter Visit Diagnoses Not on filedocumented in this encounter Additional Health Concerns Assessment Noted Time PHQ-9 Depression Total Score: 13 025 2:00 PM EDT documented as of this encounter Care Teams Sky Line Yarder Relationship Specialty Start Date End Date Yonatan Graves DO [address] [place] [address] PCP - General 02/01/25 Farida Ortega NP [address] [place] [address] Referring Physician Gastroenterology 09/02/23 documented as of this encounter
--- OUTSIDE RECORDS SUMMARY | 2025-05-23 10:35 | XMS_ITS | Encounter Summary ---
Author Organization [facility] Address [address] [place] [address] Care Team Providers Care Business Performance Advisor Name Role Phone Yonatan Graves Primary Care Provider Farida Ortega MUSIC ARRANGER Unavailable [phone] Source Comments This information has been disclosed [...] release of HIV test results or diagnoses. [id number] Health Encounter Details Date Type Department Care Team (Latest Contact Info) Description 04/18/2025 Travel Social History Tobacco Use Types Packs/Day Years Used Date Smoking Tobacco: Former Cigarettes 0.3 1.2 0 07/22/2014 - 07/22/2015 Smokeless Tobacco: Never Alcohol Use Standard Drinks/Week Comments Not Currently 0 (1 standard drink = 0.6 oz pur e alcohol) [facility] Utilities Answer Date Recorded In the past 12 months has [employer], gas, oil, or water [employer] threatened to shut off services in your [...] time in the past 12 m [facility], were you homeless or living in a senior care (including now)? No 04/19/2025 Yearly Questionnaire Answer [...] Devices Bilateral;Sequenti al compression devices, below knee 04/18/2025 8:00 PM Enedina Limon, RN Anti-Embolism Intervention On 04/18/2025 8:00 PM EDT Enedina Spear, RN documented as of this encounter Plan of Treatment Not on file documented as of this encounter Visit Diagnoses Not on filedocumented in this encounter Additional Health Concerns Assessment Noted Time PHQ-9 Depression Total Score: 13 025 2:00 PM EDT documented as of this encounter Care Teams Business Performance Advisor Relationship Specialty Start Date End Date Yonatan Graves DO [address] [place] [address] PCP - General 02/01/25 Farida Ortega, HARLEEN [address] [place] [address] Referring Physician Gastroenterology 09/02/23 documented as of this encounter
[2025-05-23 10:38] LABS: Hematocrit 27.1 % (37.0-47.0); Hemoglobin 8.0 g/dL (12.2-16.2); Immature Granulocytes % 0.9 %; Mean Corpuscular HGB Conc 29.5 g/dL (31.8-35.4); Mean Corpuscular Hemoglobin 28.0 pg (27.0-31.2); Mean Corpuscular Volume 94.8 fl (81-99); Nucleated Red Blood Cells % 0 %; Platelet Count 166 K/mm3 (142-424); Red Blood Count 2.86 M/mm3 (4.20-5.40); Red Cell Distribution Width-SD 57.5 fL; White Blood Count 5.3 K/mm3 (4.8-10.8)
--- OUTSIDE RECORDS SUMMARY | 2025-05-23 10:38 | XMS_ITS | Encounter Summary ---
Author Organization [facility] Address [address] [place] [address] Care Team Providers Care Change Booth Attendant Name Role Phone Yonatan Graves DO Primary Care Provider Farida Ortega PERSONNEL OFFICER Unavailable [phone] Source Comments This information has been disclosed [...] release of HIV test results or diagnoses. [id number] Health Encounter Details Date Type Department Care Team (Late st Contact Info) Description 04/15/2025 Orders Only [facility] Liver Transplant at [address] [phone] Quan Yates III, MD [address] [place] [phone] Social History Tobacco Use Types Packs/Day [...] Priority Date/Time Associated Diagnosis Comments HOX - ABO TYPING REPORT Routine 04/15/2025 11:48 AM EDT documented in this encounter Results * [facility]ox - ABO Typing Report (04/15/2025 11:48 AM EDT) 04/15/2025 11:4 8 AM EDT us Quan Yates III, MD LAB BLOOD ORDERABLE S Final Result Performing Organization Address City/State/[facility] Co de Phone Number [facility] [address] [phone] documented in this encounter Visit Diagnoses Not on filedocumented in this encounter Additional Health Concerns Assessment Noted Time PHQ-9 Depression Total Score: 13 05/ 025 2:00 PM EDT documented as of this encounter Care Teams Change Booth Attendant Relationship Specialty Start Date End Date Yonatan Graves DO [address] [place] [address] PCP - General 02/01/25 Farida Ortega NP [address] [place] [address] Referring Physician Gastroenterology 09/02/23 documented as of this encounter
--- OUTSIDE RECORDS SUMMARY | 2025-05-23 10:38 | XMS_ITS | Encounter Summary ---
Author Organization [facility] Address [address] [place] [address] Care Team Providers Care Hat Binder Name Role Phone IrineosmithroeYonatan Joseph LLANES Primary Care Provider Farida Ortega ENGLISH DRAWER Unavailable [phone] Cat Benavides RN Unavailable Unava ilable Source [...] release of HIV test results or diagnoses. [id number] Health Encounter Details Date Type Department Care Team (Late st Contact Info) Description 05/10/2025 Nutrition [facility] Transplant at [address] [place] [phone] Social History Tobacco Use Types Packs/Day Years Used Date Smoking Tobacco: Former Cigarettes 0.3 1.2 0 07/22/2014 - 07/22/2015 Smokeless Tobacco: Never Alcohol Use Standard Drinks/Week Comments Not Currently 0 (1 standard drink = 0.6 oz pur e alcohol) [facility] Utilities Answer Date Recorded In the [...] any time in the past 12 m [facility], were you homeless or living in [...] Progress Notes * Yonatan Sarmiento, RD - 05/10/2025 9:01 AM EST Post Liver Transplant Nutrition Assessment Pertinent Information: Pt seen in clinic for follow-up. present during visit. Reports good appetite and po intake at home. Using ONS as recommended. No n/v/d. Wound healing appropriately. Will continue to follow on an as needed basis. Anthropometrics: Height Weight BMI 5' 5 (1.651 m) 145 lb 14.4 oz (66.2 kg) 24.28 kg/m?? Weight History: Wt Readings from Last 6 Encounters: 05/03/25 145 lb 14.4 oz (66.2 kg) 04/11/25 157 lb 12.8 oz (71.6 kg) 02/07/25 152 lb (68.9 kg) 02/07/25 152 lb 8 oz (69.2 kg) 02/07/25 152 lb 8 oz (69.2 kg) 01/10/25 152 lb (68.9 kg) Labs: Lab Results Component Value Date ALKPHOS 849 (H) 05/03/2025 ALT 108 (H) 05/03/2025 AST 54 (H) 05/03/2025 BILITOT 2.4 (H) 05/03/2025 ALBUMIN 3.5 05/03/2025 ALBUMIN 3.5 05/03/2025 BILIDIRECT 1.31 (H) 05/03/2025 PROT 4.7 (L) 05/03/2025 Lab Results Component Value Date NA 135 05/03/2025 K 4.3 05/03/2025 CL 103 05/03/2025 CO2 25 05/03/2025 CREATININE 1.16 05/03/2025 BUN 37 (H) 05/03/2025 Lab Results Component Value Date MG 1.9 05/03/2025 Lab Results Component Value Date CALCIUM 8.3 (L) 05/03/2025 PHOS 2.8 05/03/2025 Lab Results Component Value Date GLUCOSE 100 05/03/2025 Lab Results Component Value Date HGBA1C 4.4 04/11/2025 Lab Results Component Value Date CHOLTOT 152 12/20/2024 TRIG 254 (H) 05/02/2025 HDL 43 (L) 12/20/2024 LDL 98 12/20/2024 Past 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: Diagnosis Date Abdominal hernia 02/21/2023 Alcoholic hepatitis (CMS-HCC) Anxiety Ascites Chronic diarrhea 08/21/2022 Cirrhosis (CMS-HCC) Cystitis Depression Hepatitis C MEDICATIONS: Current Outpatient Medications Medication Sig acetaminophen (TYLENOL) 325 MG tablet Take 3 tablets (975 mg total) by mouth every 8 hours. aspirin 81 MG chewable tablet Chew 1 tablet (81 mg total) by mouth daily. calcium-vitamin D 500 mg-5 mcg (200 unit) per tablet Take 1 tablet by mouth 2 times a day with meals. fluconazole (DIFLUCAN) 200 MG tablet Take 1 tablet (200 mg total) by mouth daily for 30 days. lidocaine (LIDODERM) 5 % Place 2 patches onto the skin daily. Apply patch for 12 hours and then remove patch and leave off for 12 hours. melatonin 3 mg Tab Take 1 tablet (3 mg total) by mouth at bedtime. methocarbamoL (ROBAXIN) 500 MG tablet Take 2 tablets (1,000 mg total) by mouth 3 times a day. mycophenolate (CELLCEPT) 250 mg capsule Take 2 capsules (500 mg total) by mouth 2 times a day. naloxone (NARCAN) 4 mg/actuation [place] Apply 1 spray in one nostril if needed. Call 911. May repeat dose in other nostril if no response in 3 minutes. ondansetron (ZOFRAN-ODT) 8 MG disintegrating tablet Take 1 tablet (8 mg total) by mouth every 8 hours as needed for Nausea. oxyCODONE (ROXICODONE) 5 MG immediate release tablet Take 2 tablets (10 mg total) by mouth every 6 hours as needed for Pain for up to 7 days. oxyCODONE (ROXICODONE) 5 MG immediate release tablet Take 2 tablets (10 mg total) by mouth every 6 hours as needed for Pain for up to 7 days. oxyCODONE (ROXICODONE) 5 MG immediate release tablet Take 3 tablets (15 mg total) by mouth every 4 hours as needed for Pain for up to 7 days. pantoprazole (PROTONIX) 40 MG tablet Take 1 tablet (40 mg total) by mouth daily. polyethylene glycol (GLYCOLAX) 17 gram/dose powder Mix 1 capful (17 g) in 8 oz of liquid and drink by mouth daily as needed (Constipation). predniSONE (DELTASONE) 5 MG tablet Take 4 tablets (20 mg total) by mouth daily. pregabalin (LYRICA) 100 MG capsule Take 1 capsule (100 mg total) by mouth 2 times a day for 30 days. senna-docusate (SENNOSIDES-DOCUSATE SODIUM) 8.6-50 mg per tablet Take 1 tablet by mouth at bedtime as needed for Constipation. sulfamethoxazole-trimethoprim (BACTRIM) 400-80 mg per tablet Take 1 tablet by mouth daily. tacrolimus (PROGRAF) 1 MG capsule Take 2 capsules (2 mg total) by mouth every morning AND 3 capsules (3 mg total) at bedtime. traZODone (DESYREL) 50 MG tablet Take 1 tablet (50 mg total) by mouth at bedtime for 30 days. ursodioL (ACTIGALL) 300 mg capsule Take 1 capsule (300 mg total) by mouth 2 times a day. valGANciclovir (VALCYTE) 450 mg tablet Take 1 tablet (450 mg total) by mouth daily. No current facility-administered medications for this visit. Documented Allergies: Allergies[1] Nutritional Intervention: General/healthful diet and Supplemental commercial beverage Goals: Choose foods consistent with low sodium, high protein diet. Eat 4 to 5 small meals a day. Do not skip meals. Eat high-protein foods. (milk, eggs, cheese, meats, beans, nuts, peanut butter) Drink Medical Food supplements as needed. Include nutrient dense foods as discussed. Keep active as able/tolerated. Jc Sarmiento RD, LD Clinical Dietitian - Solid Organ Transplant Contact via interspireSubmit Chat [1] No Known Drug Allergies or Adverse Reactions documented in this encounter Plan of Treatment Not on file documented as of this encounter Visit Diagnoses Not on filedocumented in this encounter Additional Health Concerns Assessment Noted Time PHQ-9 Depression Total Score: 13 11/04/ 025 2:00 PM EDT documented as of this encounter Care Teams Hat Binder Relationship Specialty Start Date End Date Yonatan Graves DO [address] [place], [place] [id number] PCP - General 02/01/25 Farida Ortega, ENGLISH DRAWER [address] [place] [address] Referring Physician Gastroenterology 09/02/23 Cat Benavides, RN Txp Post Coordinator Physical Therapy Asst 05/02/25 documented as of this encounter
--- OUTSIDE RECORDS SUMMARY | 2025-05-23 10:38 | XMS_ITS | Encounter Summary ---
Author Organization [facility] Address [address] [place] [address] Care Team Providers Care Naphthalene Operator Helper Name Role Phone Yonatan Graves DO Primary Care Provider Farida Ortega ENVIRONMENTAL PROTECTION INSPECTOR Unavailable Source Comments This information has been [...] release of HIV test results or diagnoses. [id number] Health Encounter Details Date Type Department Care Team (Late st Contact Info) Description 04/18/2025 Chart Note [facility] Liver Transplant at [address] [phone] Lashawn Lira RN [place] tab updated, recipient removed from [facility] wait list. Social History Tobacco Use Types Packs/Day Years Used Date Smoking Tobacco: Former Cigarettes 0.3 1.2 0 07/22/2014 - 07/22/2015 Smokeless Tobacco: Never Alcohol Use Standard Drinks/Week Comments Not Currently 0 (1 standard drink = 0.6 oz pur e alcohol) [facility] Utilities Answer Date Recorded In [...] No 04/19/2025 Housing Stability Vital Sign Answer Eptr e Recorded In the last 12 months, was t here a time when you were not able to pay the mortgage or rent on time? No 04/19/2025 In the past 12 months, how m any times have you moved where you were living? 0 04/19/2025 At any time in the past 12 m [facility], were you homeless or [...] (WDL) WDL 04/18/2025 6:26 PM EDT Enedina Spear, KONSTANTIN * Question Answer Date of Assessment Author Anti-Embolism Devices Bilateral;Sequenti al compression devices, below knee 04/18/2025 6:26 PM EDT Enedina Spear, RN Anti-Embolism Intervention On 04/18/2025 6:26 PM EDT Enedina Spear RN documented as of this encounter Progress Notes * Lashawn Lira RN - 04/18/2025 6:58 PM EDT [place] tab updated, recipient removed from [facility] wait list. documented in this encounter Plan of Treatment Not on file documented as of this encounter Visit Diagnoses Not on filedocumented in this encounter Additional Health Concerns Assessment Noted Time PHQ-9 Depression Total Score: 13 025 2:00 PM EDT documented as of this encounter Care Teams Naphthalene Operator Helper Relationship Specialty Start Date End Date Yonatan Graves DO [address] [place] [address] PCP - General 02/01/25 Farida Ortega, ENVIRONMENTAL PROTECTION INSPECTOR [address] [place] [address] Referring Physician Gastroenterology 09/02/23 documented as of this encounter
--- OUTSIDE RECORDS SUMMARY | 2025-05-23 10:38 | XMS_ITS | Encounter Summary ---
Author Organization [facility] Address [address] [place] [address] Care Team Providers Care Coal Tram Driver Name Role Phone Yonatan Graves DO Primary Care Provider Farida Ortega FOAM GUN OPERATOR Unavailable [phone] Cat Benavides RN Unavailable Unava ilable Source [...] release of HIV test results or diagnoses. [id number] Health Encounter Details Date Type Department Care Team (Late st Contact Info) Description 05/06/2025 Telephone [facility] Liver Transplant at [address] [place] [phone] Cat Benavides, KONSTANTIN Social History Tobacco Use Types Packs/Day Years Used Date Smoking Tobacco: Former Cigarettes 0.3 1.2 0 07/22/2014 - 07/22/2015 Smokeless Tobacco: Never Alcohol Use Standard Drinks/Week Comments Not Currently 0 (1 standard drink = 0.6 oz pur e alcohol) [facility] Utilities Answer Date Recorded In the past [...] any time in the past 12 m [facility], were you homeless or living in a [facility] (including now)? No 04/19/2025 Yearly Questionnaire Answer [...] Telephone Encounter - Cat Benavides RN - 05/06/2025 4:07 PM EST RN received phone call from Pt that local pharmacy is unable to fill Oxycodone Rx sent in by Dr Yates. Pt asked RN to call pharmacy and see what information they needed to authorize Rx. RN agreeable to call [facility] and return call to Pt with update. Pt agreeable with plan. RN called [facility] who states the Pt told them she was not pleased with them and would not use theirpharmacy so they did not contact our office to obtain the needed information to be able to fill themedication. Per the [facility], they have to verify the dose on this medication as it is their first outpatient opiod Rx and it is a high dose. They need to be able to document the need for medication and that she had been receiving this dose inpatient and the duration of admission. RN was able to supply all information needed for pharmacy to be able to fill medication. [facility] states the dose is not covered on the Pt's insurance as their is a maximum daily dose of 6 tabs per day covered on the insurance.They said the Pt will have to pay out of pocket for the medication. They said it is store policy they are unable to use a discount card on opioid medications. The cost will be around $70 and they would not be able to fill it immediately. RN advised [facility] that d/t cost RN is unaware if Pt can afford the medications so RN will have Pt contact the pharmacy directly to discuss cost and if she is agreeable with them filling it. [facility] agreeable with plan. RN returned call to Pt who states she anticipated needing to pay out of pocket as that was the casewith the previous Rx at discharge. Pt states $70 is cheaper than another hospital admission for pain control. Pt will follow-up with pharmacy regarding having it filled and when it will be available.Pt denies further needs at this time. documented in this encounter Plan of Treatment Not on file documented as of this encounter Visit Diagnoses Not on filedocumented in this encounter Additional Health Concerns Assessment Noted Time PHQ-9 Depression Total Score: 13 11/04/ 025 2:00 PM EDT documented as of this encounter Care Teams Coal Tram Driver Relationship Specialty Start Date End Date Yonatan Graves DO [address] [place] [address] PCP - General 02/01/25 Farida Ortega, HARLEEN [address] [place] [phone] Referring Physician Gastroenterology 09/02/23 Cat Benavides, KONSTANTIN Txp Post Coordinator Whiskey Regauger 05/02/25 documented as of this encounter
--- OUTSIDE RECORDS SUMMARY | 2025-05-23 10:38 | XMS_ITS | Encounter Summary ---
Author Organization [facility] Address [address] [place] [address] Care Team Providers Care Olive Grader Name Role Phone Yonatan Graves DO Primary Care Provider Farida Ortega BACTERIOLOGY PROFESSOR Unavailable [phone] Cat Benavides RN Unavailable Unava ilable Source [...] release of HIV test results or diagnoses. [id number] Reason for Visit * Reason Comments Results Medication Dose Change Encounter Details Date Type Department Care Team (Late st Contact Info) Description 05/11/2025 Telephone [facility] Liver Transplant at [address] [phone] Cat Benavides, KONSTANTIN Results; Medication Dose Change Social History Tobacco Use Types Packs/Day Years Used Date Smoking Tobacco: Former Cigarettes 0.3 1.2 0 07/22/2014 - 07/22/2015 Smokeless Tobacco: Never Alcohol Use Standard Drinks/Week Comments Not Currently 0 (1 standard drink = 0.6 oz pur e alcohol) [facility] Utilities Answer Date Recorded In the past [...] any time in the past 12 m [facility], were you homeless or living in a [facility] (including now)? No 04/19/2025 Yearly Questionnaire Answer [...] Encounter - Cat Benavides RN - 05/12/2025 3:18 PM EST Pt responded to message and confirmed the dose increase was made 05/11 PM * Telephone Encounter - Cat Benavides RN - 05/11/2025 3:20 PM EST Labs reviewed by Dr. Daniel. Changes made to the following medication regimen. Per Dr Daniel: We can go up to 4mg oral BID for the FK. Chart updated with new Rx and sent to Pharmacy. Sellfy message sent to Pt with changes and need for repeat labs. RN requested response to message to ensure it was received and changes were made. RN waiting for Pt response. * Telephone Encounter - Cat Benavides RN - 05/11/2025 9:34 AM EST Lab results from 05/10/25 reviewed. Cr 0.55 (from 1.16); BUN 19 (from 37). AST 29 (from 54) ALT 46 (from 108) Alk Phos 437 (from 849) 5.3 FK level Current ISP: FK 2/3 MMF 500mg BID Pred 20mg daily Will route to Txp Provider for further review and recommendations. documented in this encounter Plan of Treatment Not on file documented as of this encounter Visit Diagnoses Diagnosis S/P liver transplant (CMS-HCC)- Primary Immunosuppression (CMS-HCC) documented in this encounter Additional Health Concerns Assessment Noted Time PHQ-9 Depression Total Score: 13 025 2:00 PM EDT documented as of this encounter Care Teams Olive Grader Relationship Specialty Start Date End Date Yonatan Graves DO [address] [place] [address] PCP - General 02/01/25 Farida Ortega, BACTERIOLOGY PROFESSOR [address] [place] [address] Referring Physician Gastroenterology 09/02/23 Cat Benavides, KONSTANTIN Txp Post Coordinator Doctor Of Naturopathic Medicine 05/02/25 documented as of this encounter
--- OUTSIDE RECORDS SUMMARY | 2025-05-23 10:38 | XMS_ITS ---
Author Organization [facility] Address [address] [place] [address] Care Team Providers Care Manager Contracting Name Role Phone Yonatan Graves Joseph LLANES Primary Care Provider Farida Ortega ENTERPRISE SYSTEMS MANAGER Unavailable [phone] Cat Benavides RN Unavailable Unava ilable Transplant Episode Liver Recipient [facility] ([place], [place]) - [facility] Organ Received: Right Liver Lobe Transplanted on 04/18/2025 Marked as Active Follow-up on 04/18/2025 Liver CoordinatorCat Benavides RN Phone: N/A Fax: N/A Email: N/A [place] Organ Diagnosis Organ Primary 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 Donor Information Organ ABO Source Meets Risk Criteria HLA Match Mismatches Cross Match Right Liver Lobe Transplanted O Live A: B: DR: Right Liver Lobe Donor Serology Results Anti-CMV CMV IgG: Positive CMV IgM: Negative EBV IgG EBV VCA IgG: Positive Anti-HCV HCV Ab: Nonreactive Anti-HBcAb HBC Total: Nonreactive HBsAg HBsAg: Nonreactive HBV DNA HBV DNA: Not Detected Anti-HIV I/II No results on file Anti-HTLV I/II No results on file RPR/VDRL No results on file EBV IgM EBV VCA IgM: Negative HBsAb HBsAb: Nonreactive EBNA EBNA IgG: Positive EBNA IgM: Negative Care Team Name Role Phone Fax Email Cat Benavides RN Liver Coordinator N/A N/ A N/A Jarrod Goode MD Txp Surgeon [phone] N/A Mario Ramirez MD Referring Physician [phone] N/A Mery Stroud, KONSTANTIN Txp Pre Coordinator N/A N/A N/A Zeny Bhakta, TOOL SETTER, SOUS CHEF Txp Rough Rounder Machine N/A N/A N/A Cat Benavides, RN Txp Post Coordinator N/A N/A N/A Events Post-Transplant Pre-Transplant Admitted: 04/18/2025 Referred: 08/31/2024 Transplanted: 04/18/2025 Evaluation began: Discharged: 05/03/2025 Committee: 03/08/2025 Center waitlisted: 5 Appointments (04/23/2025 - 06/23/2025) When With Visit Type Description 05/10/2025 Txp Jayne Burnett Established Patient S/P liver transplant (CMS-HCC) (Primary Dx); Immunosuppression (CMS-HCC); Postoperative pain 05/17/2025 Txp Claude Rodrigez Established Patient S/ P liver transplant (CMS-HCC) (Primary Dx); End-stage liver disease (CMS-HCC); Immunosuppressive management encounter following liver transplant (CMS-HCC)
--- OUTSIDE RECORDS SUMMARY | 2025-05-23 10:38 | XMS_ITS | Encounter Summary ---
Author Organization [facility] Address [address] [place] [address] Care Team Providers Care Principal Military Analyst Name Role Phone Yonatan Graves DO Primary Care Provider Farida Ortega AUTOMATION AND CONTROLS INSTRUCTOR Unavailable [phone] Source Comments This information has been disclosed [...] release of HIV test results or diagnoses. [id number] Health Encounter Details Date Type Department Care Team (Late st Contact Info) Description 04/18/2025 Chart Note [facility] Liver Transplant at [address] [place] [phone] Abdullahi Cano RN MELD [facility] and were accurately Social History Tobacco Use Types Packs/Day Years Used Date Smoking Tobacco: Former Cigarettes 0.3 1.2 0 07/22/2014 - 07/22/2015 Smokeless Tobacco: Never Alcohol Use Standard Drinks/Week Comments Not Currently 0 (1 standard drink = 0.6 oz pur e alcohol) [facility] Utilities Answer Date Recorded In the [...] any time in the past 12 m [facility], were you homeless or living in a [...] Robison RN documented as of this encounter Progress Notes * Abdullahi Cano RN - 04/18/2025 9:02 AM EDT MELD lab values were successfully updated in [facility] and were accurately updated with the most recent labs. The new MELD Score is 10. Karnofsky score updated/reviewed. Labs book marked ([facility]/Regulatory). documented in this encounter Plan of Treatment Not on file documented as of this encounter Visit Diagnoses Not on filedocumented in this encounter Additional Health Concerns Assessment Noted Time PHQ-9 Depression Total Score: 13 025 2:00 PM EDT documented as of this encounter Care Teams Principal Military Analyst Relationship Specialty Start Date End Date Yonatan Graves DO [address] [place] [address] PCP - General 02/01/25 Farida Ortega, HARLEEN [address] [place] [address] Referring Physician Gastroenterology 09/02/23 documented as of this encounter
--- OUTSIDE RECORDS SUMMARY | 2025-05-23 10:41 | XMS_ITS | Encounter Summary ---
Author Organization [facility] Address [address] [place] [address] Care Team Providers Care Summer School Coordinator Name Role Phone Yonatan Graves Primary Care Provider Farida Ortega DIRECTOR DATA MANAGEMENT Unavailable Cat Benavides RN Unavailable Unava ilable [...] release of HIV test results or diagnoses. [id number] Health Encounter Details Date Type Department Care Team (Late st Contact Info) Description 05/03/2025 Chart Note [facility] [address] [place] [address] [phone] Tresa Beltran, PharmD Liver Transplant Pharmacy Discharge Note Social History Tobacco Use Types Packs/Day Years Used Date Smoking Tobacco: Former Cigarettes 0.3 1.2 0 07/22/2014 - 07/22/2015 Smokeless Tobacco: Never Alcohol Use Standard Drinks/Week Comments Not Currently 0 (1 standard drink = 0.6 oz pur e alcohol) [facility] Utilities Answer [...] were you homeless or living in a residential (including now)? No 04/19/2025 Yearly Questionnaire Answer [...] Question Answer Date of Assessment Author Gretchen boots No 05/03/2025 8:30 AM Julianne Hook RN Peripheral Vascular (WDL) X 05/03/2025 8:30 AM Julianne Hook RN documented as of this encounter Progress Notes * Tresa Beltran, PharmD - 05/03/2025 4:17 PM EST Images from the original note were not included. Liver Transplant Pharmacy Discharge Note Name: Mindy Wade Transplant date: 04/18/2025 (Liver) Transplant type: LDLT Primary disease: EtOH and HCV Discharge date: 05/03/25 Discharge location: Home CMV status:D+/R+ EBV status: D+/R+ Toxo status:D-/R- Study: NA Pain protocol: B Donor HCV Serologies: Anti-HCV Negative, HCV COOPER Negative Donor HBV Serologies: HBcAb Negative, HBV COOPER Negative Vitamin D level: 27.1 Immunosuppression: Standard Discharge Medications: Maintenance Immunosuppression Comment Immunosuppressions Medications Glucocorticoids predniSONE (DELTASONE) 5 MG tablet Sig - Route: Take 4 tablets (20 mg total) by mouth daily. - Oral Immunosuppressive - Calcineurin Inhibitors tacrolimus (PROGRAF) 1 MG capsule Sig - Route: Take 2 capsules (2 mg total) by mouth every morning AND 3 capsules (3 mg total) at bedtime. - Oral Immunosuppressive - Inosine Monophosphate Dehydrogenase Inhibitors mycophenolate (CELLCEPT) 250 mg capsule Sig - Route: Take 2 capsules (500 mg total) by mouth 2 times a day. - Oral Lab Results Component Value Date/Time TACROLMSLCMS 7.2 05/03/2025 0546 Last Dose Change: 05/03 changed from 2/2.5 to 2/3 Trough Goals: 10-12 ng/mL PJP Prophylaxis Per Protocol Stop Date Bactrim 3 months from start date: 07/19/2025 Antiviral Prophylaxis Per Protocol Stop Date Valganciclovir 3 months from start date: 07/19/2025 Antifungal Prophylaxis Per Protocol Stop Date Fluconazole (Diflucan) - INDICATION: LDLT and RTOR for JJ revision (04/23) 1 month from start date: 05/23/2025 Extended VTE Prophylaxis Per Protocol Stop Date Caprini Score of 10, but based on a team risk vs benefit discussion, team was okay stopping extended Caprini prophylaxis at the time of discharge because cost of rivaroxaban and apixaban was expectedto be ~$150 (enoxaparin would have been ~$25) and patient had bleeding complications post transplant (bleed from JJ anastomosis s/p revision on 04/23). Completed 05/03/25 on discharge Antidiabetic Medications Not Diabetic prior to OLT Complete Medication List: Outpatient Medications as of 05/03/2025 Directions acetaminophen (TYLENOL) 325 MG tablet Take 3 tablets (975 mg total) by mouth every 8 hours. aspirin 81 MG chewable tablet Chew 1 tablet (81 mg total) by mouth daily. Indication: LDLT calcium-vitamin D 500 mg-5 mcg (200 unit) per tablet Take 1 tablet by mouth 2 times a day with meals. Vit D 27.1 fluconazole (DIFLUCAN) 200 MG tablet Take 1 [...] total) by mouth 3 times a day. Difficulty with pain management inpatient mycophenolate (CELLCEPT) 250 mg capsule Take 2 capsules (500 mg total) by mouth 2 times a day. naloxone (NARCAN) 4 mg/actuation [place] Apply 1 spray in one nostril if needed. Call 911. May repeat dose in other nostril if no response in 3 minutes. ondansetron (ZOFRAN-ODT) 8 MG disintegrating tablet Take 1 tablet (8 mg total) by mouth every 8 hours as needed for Nausea. Home medication oxyCODONE (ROXICODONE) 5 MG immediate release tablet Take 2 tablets (10 mg total) by mouth every 6 hours as needed for Pain for up to 7 days. Difficulty with pain management inpatient pantoprazole (PROTONIX) 40 MG tablet Take 1 tablet (40 mg total) by mouth daily. New post transplant polyethylene glycol (GLYCOLAX) 17 gram/dose powder Mix 1 capful (17 g) in 8 oz of liquid and drink by mouth daily as needed (Constipation). predniSONE (DELTASONE) 5 MG tablet Take 4 tablets (20 mg total) by mouth daily. pregabalin (LYRICA) 100 MG capsule Take 1 capsule (100 mg total) by mouth 2 times a day for 30 days. Was previously on gabapentin 800 mg TID, switched to pregabalin with hope it would help with pain management, may need uptitrated outpatient senna-docusate (SENNOSIDES-DOCUSATE SODIUM) 8.6-50 mg per tablet [...] total) by mouth 2 times a day. Started 05/02 valGANciclovir (VALCYTE) 450 mg tablet Take 1 tablet (450 mg total) by mouth daily. The following home medications were discontinued in hospital: STOP taking these medications carvediloL (COREG) 3.125 MG tablet Comments: varices not HTN Reason for Stopping: no longer needed furosemide (LASIX) 20 MG tablet Comments: Reason for Stopping: no longer needed gabapentin (NEURONTIN) 800 MG tablet Comments: Reason for Stopping: switched to pregabalin for better pain control spironolactone (ALDACTONE) 50 MG tablet Comments: Reason for Stopping: no longer needed ondansetron (ZOFRAN) 4 MG tablet Comments: Reason for Stopping: duplicate Rejection during txp hospitalization (+ treatment given, where applicable): None The following issues are to be addressed as an outpatient: ASCVD Risk: ASCVD Risk: Unable to calculate due too young Not interested in [place] Difficulty with pain management inpatient, may need additional increase of pregabalin outpatient. Tresa Beltran PharmD Solid Organ Transplant Clinical Behavioral Scientist Contact via Wenwo documented in this encounter Plan of Treatment Not on file documented as of this encounter Visit Diagnoses Not on filedocumented in this encounter Additional Health Concerns Assessment Noted Time PHQ-9 Depression Total Score: 13 025 2:00 PM EDT documented as of this encounter Care Teams Summer School Coordinator Relationship Specialty Start Date End Date Yonatan Graves DO [address] [place] [address] PCP - General 02/01/25 Farida Ortega, DIRECTOR DATA MANAGEMENT [address] [place] [address] Referring Physician Gastroenterology 09/02/23 Cat Benavides, RN Txp Post Coordinator Operations Liaison 05/02/25 documented as of this encounter
--- OUTSIDE RECORDS SUMMARY | 2025-05-23 10:41 | XMS_ITS | Encounter Summary ---
Author Organization [facility] Address [address] [place] [address] Care Team Providers Care Nursing Surgical Services Director Name Role Phone Yonatan Graves DO Primary Care Provider Farida Ortega DESK ASSISTANT Unavailable [phone] Cat Benavides RN Unavailable Unava ilable Source [...] release of HIV test results or diagnoses. [id number] Health Encounter Details Date Type Department Care Team (Late st Contact Info) Description 05/03/2025 Orders Only [facility] Transplant Hepatobiliary at [address] [phone] Quan Yates III, MD [address] [place] [phone] End-stage liver disease (CMS-HCC) (Primary Dx) Social History Tobacco Use Types Packs/Day Years Used Date Smoking Tobacco: Former Cigarettes 0.3 1.2 0 07/22/2014 - 07/22/2015 Smokeless Tobacco: Never Alcohol Use Standard Drinks/Week Comments Not Currently 0 (1 standard drink = 0.6 oz pur e alcohol) [facility] Utilities Answer Date Recorded In the past 12 months has th e [employer], gas, oil, or water company threatened to [...] any time in the past 12 m [facility], were you homeless or living in a fdc (including now)? No 04/19/2025 Yearly Questionnaire Answer [...] needed for: Not on file 06/30/202 5 Comments No Sex and Gender Information Value Date Recorded Sex Assigned at Not on file Legal Sex Female 7:36 PM EDT Gender Identity Not on file Sexual Orientation Not on file documented as of this encounter Functional Status * Peripheral Vascular Question Answer Date of Assessment Author Gretchen lau No 05/03/2025 8:30 AM Julianne Hook RN Peripheral Vascular (WDL) X 05/03/2025 8:30 AM Julianne Hook RN documented as of this encounter Progress Notes * Quan Yates III, MD - 05/03/2025 8:43 PM EST Spoke with patient after dc home - given incorrect supply of oxycodone based on usage inpatient. Correct dose sent to local pharmacy - to be filled on Friday is when she would run out of her current supply documented in this encounter Plan of Treatment Not on file documented as of this encounter Visit Diagnoses Diagnosis End-stage liver disease (CMS-HCC)- Primary Other sequelae of chronic liver disease documented in this encounter Additional Health Concerns Assessment Noted Time PHQ-9 Depression Total Score: 13 025 2:00 PM EDT documented as of this encounter Care Teams Nursing Surgical Services Director Relationship Specialty Start Date End Date Yonatan Graves DO [address] [place] [address] PCP - General 02/01/25 Farida Ortega, HARLEEN [address] [place] [address] Referring Physician Gastroenterology 09/02/23 Cat Benavides, KONSTANTIN Txp Post Coordinator Store Promoter 05/02/25 documented as of this encounter
--- OUTSIDE RECORDS SUMMARY | 2025-05-23 10:42 | XMS_ITS | Encounter Summary ---
Author Organization [facility] Address [address] [place] [address] Care Team Providers Care Yarn Skeins Examiner Name Role Phone Yonatan Graves DO Primary Care Provider Farida Ortega CREW ATTENDANT Unavailable [phone] Cat Benavides RN Unavailable Unava ilable Source [...] release of HIV test results or diagnoses. [id number] Health Encounter Details Date Type Department Care Team (Late st Contact Info) Description 05/03/2025 Orders Only [facility] Liver Transplant at [address] [address] Quan Yates III, MD [address] [place] [phone] Liver replaced by transplant ([facility]) (Primary Dx); Immunosuppressive management encounter following liver transplant ([facility]) Social History Tobacco Use Types Packs/Day Years Used Date Smoking Tobacco: Former Cigarettes 0.3 1.2 0 07/22/2014 - 07/22/2015 Smokeless Tobacco: Never Alcohol Use Standard Drinks/Week Comments Not Currently 0 (1 standard drink = 0.6 oz pur e alcohol) [facility] Utilities Answer Date Recorded In the past 12 months has th e [employer], [employer], oil, or water company threatened to shut [...] time in the past 12 m [facility], were you homeless or living in a long term (including now)? No 04/19/2025 Yearly Questionnaire Answer [...] Hook RN documented as of this encounter Plan of Treatment Not on file documented as of this encounter Visit Diagnoses Diagnosis Liver replaced by transplant (CMS-HCC)- Primary Liver replaced by transplant Immunosuppressive management encounter following liver transplant (CMS-HCC) documented in this encounter Additional Health Concerns Assessment Noted Time PHQ-9 Depression Total Score: 13 11/04/ 025 2:00 PM EDT documented as of this encounter Care Teams Yarn Skeins Examiner Relationship Specialty Start Date End Date Yonatan Graves DO [address] [place] [address] PCP - General 02/01/25 Farida Ortega, CREW ATTENDANT [address] [place] [address] Referring Physician Gastroenterology 09/02/23 Cat Benavides, KONSTANTIN Txp Post Coordinator Zoology Technical Officer 05/02/25 documented as of this encounter
--- OUTSIDE RECORDS SUMMARY | 2025-05-23 10:45 | XMS_ITS | Encounter Summary ---
Author Organization [facility] Address [address] [place] [address] Care Team Providers Care Booster Pump Oiler Name Role Phone Yonatan Graves Primary Care Provider Farida Ortega DIGITAL CONTROLS TECHNICAL OFFICER Unavailable [phone] Cat Benavides RN Unavailable Unava ilable Source [...] release of HIV test results or diagnoses. [id number] Health Encounter Details Date Type Department Care Team (Late st Contact Info) Description 05/05/2025 Telephone [facility] Liver Transplant at [address] [place] [phone] Tresa Reilly MA Social History Tobacco Use Types Packs/Day Years Used Date Smoking Tobacco: Former Cigarettes 0.3 1.2 0 07/22/2014 - 07/22/2015 Smokeless Tobacco: Never Alcohol Use Standard Drinks/Week Comments Not Currently 0 (1 standard drink = 0.6 oz pur e alcohol) [facility] Utilities Answer Date Recorded In [...] were you homeless or living in a retirement (including now)? No 04/19/2025 Yearly Questionnaire Answer [...] Progress Notes * Tresa Reilly MA - 05/05/2025 4:33 PM EST Patient called back to see if she could eat the Queso cheese. Gave the patient an update: Queso is safe to eat with or without the peppers. It is blue cheese and generally soft cheeses that bacn be problematic * Tresa Reilly MA - 05/05/2025 1:16 PM EST Patient called to ask if she was able to eat queso cheese, she could not remember all the do's and don'ts. Advised patient I would check with RN coordinator to make sure and a MA would reach back out with an answer, until then I advised the patient to hold off from eating it since she was unsure. documented in this encounter Plan of Treatment Not on file documented as of this encounter Visit Diagnoses Not on filedocumented in this encounter Additional Health Concerns Assessment Noted Time PHQ-9 Depression Total Score: 13 025 2:00 PM EDT documented as of this encounter Care Teams Booster Pump Oiler Relationship Specialty Start Date End Date Yonatan Graves DO [address] [place] [address] PCP - General 02/01/25 Farida Ortega NP [address] [place] [address] Referring Physician Gastroenterology 09/02/23 Cat Benavides, KONSTANTIN Txp Post Coordinator Beauty Sales Consultant 05/02/25 documented as of this encounter
--- OUTSIDE RECORDS SUMMARY | 2025-05-23 10:45 | XMS_ITS | Encounter Summary ---
Author Organization [facility] Address [address] [place] [address] Care Team Providers Care Debridging Machine Operator Name Role Phone Yonatan Graves Primary Care Provider Farida Ortega PROPERTY PORTFOLIO OFFICER Unavailable [phone] Cat Benavides RN Unavailable Unava ilable Source [...] release of HIV test results or diagnoses. [id number] Health Encounter Details Date Type Department Care Team (Late st Contact Info) Description 05/06/2025 Telephone [facility] Liver Transplant at [address] [place] [phone] Nina Britton MA Social History Tobacco [...] any time in the past 12 m [facility], were you homeless or living in a detention (including now)? No 04/19/2025 Yearly Questionnaire Answer [...] Progress Notes * Nina Britton MA - 05/06/2025 11:57 AM EST I called pt her [facility] RN did not show up yesterday to draw her labs but was coming later this morning. Pts ws not available and ask that I call back to speak him. I called back and reviewed with him that labs are to be drawn by 9am every Fri and Thurs prior to pt taking her morning dose of txp medication. Pts [facility] nurse was there and did not have lab orders for pt so we verbally reviewed all lab orders. Pt has already taken her Tacro for the morning so Tacro level will not be drawn today. Pt will be however coming to clinic early on Friday to have all of her labs drawn prior to her appt. I reviewed with [facility] the agency and contact info and updated demos. Nurse said that she will be taking pts labs to [facility] so I called and got that info and updated demos as well. documented in this encounter Plan of Treatment Not on file documented as of this encounter Visit Diagnoses Not on filedocumented in this encounter Additional Health Concerns Assessment Noted Time PHQ-9 Depression Total Score: 13 025 2:00 PM EDT documented as of this encounter Care Teams Debridging Machine Operator Relationship Specialty Start Date End Date Yonatan Graves DO [address] [place] [address] PCP - General 02/01/25 Farida Ortega, HARLEEN [address] [place] [address] Referring Physician Gastroenterology 09/02/23 Cat Benavides, KONSTANTIN Txp Post Coordinator Director Data Architecture 05/02/25 documented as of this encounter
--- OUTSIDE RECORDS SUMMARY | 2025-05-23 10:45 | XMS_ITS | Encounter Summary ---
Author Organization [facility] Address [address] [place] [address] Care Team Providers Care Promotion Producer Name Role Phone Yonatan Graves DO Primary Care Provider Farida Ortega REINFORCING IRON WORKER HELPER Unavailable [phone] Cat Benavides RN Unavailable Unava ilable Source [...] release of HIV test results or diagnoses. [id number] Health Encounter Details Date Type Department Care Team (Late st Contact Info) Description 05/04/2025 Orders Only [facility] Liver Transplant at [address] [address] Cat Benavides, KONSTANTIN Liver replaced by transplant ([facility]) (Primary Dx); Postoperative pain Social History Tobacco Use Types Packs/Day Years Used Date Smoking Tobacco: Former Cigarettes 0.3 1.2 0 07/22/2014 - 07/22/2015 Smokeless Tobacco: Never Alcohol Use Standard Drinks/Week Comments Not Currently 0 (1 standard drink = 0.6 oz pur e alcohol) [facility] Utilities Answer Date Recorded In the [...] any time in the past 12 m [facility], were you homeless or living in a long-term (including now)? No 04/19/2025 Yearly Questionnaire Answer [...] transplant (CMS-HCC)- Primary Liver replaced by transplant Postoperative pain Other acute postoperative pain documented in this encounter Additional Health Concerns Assessment Noted Time PHQ-9 Depression Total Score: 13 11/04/ 025 2:00 PM EDT documented as of this encounter Care Teams Promotion Producer Relationship Specialty Start Date End Date Yonatan Graves DO [address] [place] [address] PCP - General 02/01/25 Farida Ortega, REINFORCING IRON WORKER HELPER [address] [place] [address] Referring Physician Gastroenterology 09/02/23 Cat Benavides, KONSTANTIN Txp Post Coordinator Scaling Machine Operator 05/02/25 documented as of this encounter
--- OUTSIDE RECORDS SUMMARY | 2025-05-23 10:45 | XMS_ITS | Encounter Summary ---
Author Organization [facility] Address [address] [place] [address] Care Team Providers Care Principal Account Clerk Name Role Phone Yonatan Graves Primary Care Provider Farida Ortega GOAT FARMER Unavailable [phone] Cat Benavides RN Unavailable Unava ilable Source [...] release of HIV test results or diagnoses. [id number] Health Encounter Details Date Type Department Care Team (Late st Contact Info) Description 05/04/2025 Chart Note [facility] Liver Transplant at [address] [address] Tran Storm MA Received Prior Authorization via fax for Lidocaine Patches. Social History Tobacco Use Types Packs/Day Years Used Date Smoking Tobacco: Former Cigarettes 0.3 1.2 0 07/22/2014 - 07/22/2015 Smokeless Tobacco: Never Alcohol Use Standard Drinks/Week Comments Not Currently 0 (1 standard drink = 0.6 oz pur e alcohol) [facility] Utilities Answer Date Recorded In the past 12 months has [employer] electric, gas, oil, or water company threatened [...] any time in the past 12 m [facility], were you homeless or living [...] Progress Notes * Tran Storm MA - 05/04/2025 4:17 PM EST Received Prior Authorization via fax for Lidocaine Patches. PA was completed on Cover[employer]Meds. No further needs. documented in this encounter Plan of Treatment Not on file documented as of this encounter Visit Diagnoses Not on filedocumented in this encounter Additional Health Concerns Assessment Noted Time PHQ-9 Depression Total Score: 13 025 2:00 PM EDT documented as of this encounter Care Teams Principal Account Clerk Relationship Specialty Start Date End Date Yonatan Graves DO [address] [place] [address] PCP - General 02/01/25 Farida Ortega, GOAT FARMER [address] [place] [address] Referring Physician Gastroenterology 09/02/23 Cat Benavides, KONSTANTIN Txp Post Coordinator Fire Manager 05/02/25 documented as of this encounter
[2025-05-23 11:10] LABS: Albumin Level 3.4 g/dl (3.5-5.0); Chloride 104 mmol/L (98-107); Potassium 4.0 mmoL/L (3.5-5.1); Sodium 136 mmol/L (136-145)
[2025-05-23 11:13] LABS: Alanine Aminotransferase 28 U/L (12-78); Alkaline Phosphatase 176 U/L (38-126); Anion Gap 10.0 mEq/L (5-15); Aspartate Amino Transferase 32 U/L (14-36); Bilirubin,Direct 0.3 mg/dl (0.0-0.4); Bilirubin,Indirect 0.3 mg/dL (0.0-0.9); Bilirubin,Total 0.6 mg/dl (0.2-1.3); Bilirubin,Unconjugated 0.2 mg/dL (0.0-1.1); Blood Urea Nitrogen 21 mg/dl (7-17); Carbon Dioxide 26 mmol/L (22.0-30.0); Creatinine,Serum 0.50 mg/dl (0.52-1.04); Estimated Glomerular Filt Rate 140 ml/min (>60); GFR (African American) 170 ML/MIN (>60); Phosphorous 3.0 mg/dl (2.5-4.5); Total Protein,Serum 5.8 g/dl (6.3-8.2)
[2025-05-23 11:14] LABS: Calcium 8.4 mg/dl (8.4-10.2); Glucose 78 mg/dl (74-100)
[2025-05-26 18:10] LABS: Tacrolimus (FK506), Blood 6.2 ng/mL (5.0-20.0)
== END 2025-05-23 23:59 | disposition home or self-care (01) ==
LOC: LAB 10:08
PROVIDERS: PCP Internal Medicine; Visit Provider Internal Medicine
DX: Z00.00 Encounter for general adult medical examination without abnormal findings (principal); Z94.4 Liver transplant status
CPT/HCPCS: 80069; 80076; 80197; 85025

== ENCOUNTER 2025-06-06 10:47 | Outpatient (CLI) | payer MEDICARE, SELFPAY ==
[2025-06-06 11:20] LABS: Albumin Level 3.9 g/dl (3.5-5.0); Chloride 108 mmol/L (98-107)
[2025-06-06 11:21] LABS: Hematocrit 30.2 % (37.0-47.0); Hemoglobin 8.8 g/dL (12.2-16.2); Immature Granulocytes % 1.0 %; Mean Corpuscular HGB Conc 29.1 g/dL (31.8-35.4); Mean Corpuscular Hemoglobin 25.8 pg (27.0-31.2); Mean Corpuscular Volume 88.6 fl (81-99); Nucleated Red Blood Cells % 0 %; Platelet Count 162 K/mm3 (142-424); Potassium 3.8 mmoL/L (3.5-5.1); Red Blood Count 3.41 M/mm3 (4.20-5.40); Red Cell Distribution Width-SD 50.6 fL; Sodium 136 mmol/L (136-145); White Blood Count 4.1 K/mm3 (4.8-10.8)
[2025-06-06 11:23] LABS: Anion Gap 5.8 mEq/L (5-15); Bilirubin,Unconjugated 0.4 mg/dL (0.0-1.1); Blood Urea Nitrogen 23 mg/dl (7-17); Carbon Dioxide 26 mmol/L (22.0-30.0); Creatinine,Serum 0.70 mg/dl (0.52-1.04); Estimated Glomerular Filt Rate 95 ml/min (>60); GFR (African American) 115 ML/MIN (>60)
[2025-06-06 11:24] LABS: Alanine Aminotransferase 22 U/L (12-78); Alkaline Phosphatase 109 U/L (38-126); Aspartate Amino Transferase 28 U/L (14-36); Bilirubin,Direct 0.1 mg/dl (0.0-0.4); Bilirubin,Indirect 0.3 mg/dL (0.0-0.9); Bilirubin,Total 0.4 mg/dl (0.2-1.3); Calcium 8.5 mg/dl (8.4-10.2); Glucose 83 mg/dl (74-100); Phosphorous 2.5 mg/dl (2.5-4.5); Total Protein,Serum 6.1 g/dl (6.3-8.2)
[2025-06-09 03:48] LABS: Tacrolimus (FK506), Blood 6.8 ng/mL (5.0-20.0)
== END 2025-06-06 23:59 | disposition home or self-care (01) ==
LOC: LAB 10:47
PROVIDERS: PCP Internal Medicine; Visit Provider Internal Medicine
DX: K46.0 Unspecified abdominal hernia with obstruction, without gangrene (principal); Z94.4 Liver transplant status; Z48.23 Encounter for aftercare following liver transplant
CPT/HCPCS: 80069; 80076; 80197; 85025